=== PATIENT | male | born 1990 | race Caucasian/White ===

== ENCOUNTER 2023-08-02 15:57 | Outpatient (OUT) | payer OTHER, SELFPAY ==
[2023-08-02 16:10] LABS: Basophils Absolute Auto 0.1 10^3/uL (0.0-0.1); Basophils Percent Auto 0.4 % (0.2-2.0); Eosinophils Absolute Auto 0.5 10^3/uL (0.0-0.7); Eosinophils Percent Auto 4.2 % (0.9-7.0); Hematocrit 47.4 % (42.0-54.0); Hemoglobin 15.8 g/dL (14.0-18.0); Immature Granulocytes Abs Auto 0.05 10^3/uL (0.00-0.03); Immature Granulocytes Pct Auto 0.4 % (0.0-0.5); Lymphocytes Absolute Auto 3.3 10^3/uL (1.2-3.8); Lymphocytes Percent Auto 27.6 % (20.5-60.0); Mean Corpuscular HGB Conc 33.3 g/dL (29.9-35.2); Mean Corpuscular Hemoglobin 28.2 pg (25.9-34.0); Mean Corpuscular Volume 84.6 fL (80.0-94.0); Mean Platelet Volume 9.9 fL (9.5-13.5); Monocytes Absolute Auto 0.5 10^3/uL (0.3-0.8); Monocytes Percent Auto 4.3 % (1.7-12.0); Neutrophils Absolute Auto 7.5 10^3/uL (1.4-6.5); Neutrophils Percent Auto 63.1 % (43.0-75.0); Platelet Count 340 10^3/uL (150-450); White Blood Count 11.9 10^3/uL (4.0-11.0)
[2023-08-02 17:02] LABS: Free T4 0.83 ng/dL (0.76-1.46)
[2023-08-02 17:05] LABS: Alanine Aminotransferase 72 U/L (16-63); Alkaline Phosphatase 78 U/L (46-116); Anion Gap 13.8; Aspartate Amino Transferase 26 U/L (15-37); Bilirubin Total 0.3 mg/dL (0.2-1.0); Calcium 8.8 mg/dL (8.5-10.1); Carbon Dioxide 24.3 mmol/L (21.0-32.0); Chloride 104 mmol/L (98-107); Estimated GFR (African America >60 (>=60); Estimated GFR (Non-African Ame >60 (>=60); Glucose 100 mg/dL (74-106); Potassium 4.1 mmol/L (3.5-5.1); Sodium 138 mmol/L (136-145); Thyroid Stimulating Hormone 0.991 uIU/mL (0.358-3.740)
[2023-08-04 04:07] LABS: Lithium (Eskalith(R)), Serum 0.2 mmol/L (0.5-1.2)
== END 2023-08-02 15:58 | disposition home or self-care (01) ==
LOC: LAB 16:00
PROVIDERS: PCP Family Medicine; Visit Provider Family Medicine
DX: R53.83 Other fatigue (principal)
CPT/HCPCS: 36415; 80053; 80178; 84439; 84443; 85025

== ENCOUNTER 2023-11-17 13:44 | Emergency (ER) | payer OTHER, SELFPAY ==
[2023-11-17 14:14] VITALS: BP 130/104; PULSE 62; RESP 22; TEMP 36.8; O2SAT 99; BMI 38.6
== END 2023-11-17 14:45 | disposition left against medical advice (07) ==
PROVIDERS: Emergency Provider Emergency Medicine Emergency Medical Services; PCP Family Medicine
DX: Z53.21 Procedure and treatment not carried out due to patient leaving prior to being seen by health care provider (principal)

== ENCOUNTER 2023-11-24 16:20 | Observation (INO) | payer OTHER, SELFPAY ==
[2023-11-24] VITALS (7 sets, daily range): BP systolic 121–166; BP diastolic 82–104; PULSE 53–82; RESP 16–18; TEMP 36.6–37.1; O2SAT 98–100; BMI 38.0; BMI 38.5
--- NOTE | 2023-11-24 17:00 | ED.GENADUL1 ---
HPI - General Adult General Chief complaint: Abdominal Pain Stated complaint: Abdominal Pain Time Seen by Provider: 11/24/23 16:51 Source: patient Mode of arrival: walk-in Limitations: no limitations History of Present Illness HPI narrative: Patient is a 33-year-old male with a history of cyclic vomiting who presents to the emergency department for the evaluation of suspected cyclic vomiting after smoking marijuana last week. He states he went to Dr. Mario's office to be evaluated and was told to come to the hospital for admission, he states he went to [facility] but was told he did not have admission orders and he needed to go through the ER. He complains of generalized mid abdominal pain associated with multiple episodes of vomiting. He has had minimal diarrhea. No fevers, cough or congestion. He denies urinary symptoms. No previous abdominal surgeries. Related Data Home Medications Medication Instructions Recorded Confirmed clonidine HCl 0.1 mg tablet 0.2 mg PO BID 11/17/23 11/24/23 hydroxyzine pamoate 25 mg capsule 25 mg PO QID PRN anxiety 11/17/23 11/24/23 lithium carbonate 300 mg capsule 300 mg PO BEDTIME 11/17/23 11/24/23 propranolol 80 mg tablet 80 mg PO DAILY 11/17/23 11/24/23 Allergies Allergy/AdvReac Type Severity Reaction Status Date / Time Penicillins Allergy Severe Verified 11/24/23 16:49 Review of Systems ROS Constitutional Denies: fever or chills Ears, nose, mouth, and throat Denies: throat pain or nasal congestion Cardiovascular Denies: chest pain Respiratory Denies: shortness of breath or cough Gastrointestinal Reports: abdominal pain, nausea, vomiting and diarrhea Genitourinary Denies: painful urination Musculoskeletal Denies: back pain Integumentary/Breast Denies: rash Neurological Denies: headache Exam Narrative Exam Narrative: Gen.: Awake, alert, in no distress Head: Normocephalic, atraumatic ENT: Moist mucous membranes Respiratory: No respiratory distress, lungs clear bilaterally Cardio: Regular rate and rhythm Gastrointestinal: Abdomen is soft, nondistended and nontender to palpation Extremities: Moves extremities equally Psych: Normal mood and affect Neuro: No focal neuro deficit Skin: Warm, dry, intact Constitutional Vital Signs, click to edit/add: Last Vital Signs Temp 98.8 F 11/24/23 16:49 Pulse 82 11/24/23 16:49 Resp 18 11/24/23 16:49 BP 121/104 H 11/24/23 16:49 Pulse Ox 100 11/24/23 16:49 O2 Del Method Room Air 11/24/23 16:49 Course Vital Signs Vital signs: Vital Signs Temperature 98.8 F 11/24/23 16:49 Pulse Rate 82 11/24/23 16:49 Respiratory Rate 18 11/24/23 16:49 Blood Pressure 121/104 H 11/24/23 16:49 Pulse Oximetry 100 11/24/23 16:49 Oxygen Delivery Method Room Air 11/24/23 16:49 Temperature 98.8 F 11/24/23 16:49 Pulse Rate 82 11/24/23 16:49 Respiratory Rate 18 11/24/23 16:49 Blood Pressure 121/104 H 11/24/23 16:49 Pulse Oximetry 100 11/24/23 16:49 Oxygen Delivery Method Room Air 11/24/23 16:49 Medical Decision Making MDM Narrative Medical decision making narrative: Before the patient was brought into the emergency department, staff called [facility] and they stated that the patient did not have admission orders and needed to come through the emergency department. IV was established, labs were drawn and I discussed the case with Dr. Mario who stated that he absolutely called [facility] and placed admission orders for the patient to be a direct admission. He requested we admit the patient and he will place admission orders through the ER. Medical Records Medical records reviewed: Yes I reviewed the patient's medical records Lab Data Lab results reviewed: Yes I reviewed the patient's lab results Discharge Plan Discharge Chief Complaint: Abdominal Pain Patient Disposition: Admitted as Observation Time of Disposition Decision: 17:18 Prescriptions / Home Meds: No Action clonidine HCl 0.1 mg tablet 0.2 mg PO BID hydroxyzine pamoate 25 mg capsule 25 mg PO QID PRN (Reason: anxiety) lithium carbonate 300 mg capsule 300 mg PO BEDTIME propranolol 80 mg tablet 80 mg PO DAILY Referrals: Janes Mario MD [Primary Care Provider] - 1 week
--- OUTSIDE RECORDS SUMMARY | 2023-11-24 17:10 | XMS_ITS | CCD ---
Author Name Unknown Address [address] [place] [address] Organization [facility] Care Team Providers Care Speech And Language Assistant Name Role Phone DARREN MOHAMAD Referring Unavailable LESLIEHOTHCARLOS, MOHAMAD Attending Unavailable HOY ., DR OLIVER Consulting Unavailable HOY ., DR OLIVER Attending Unavailable HOY ., DR OLIVER Admitting Unavailable HOY ., DR OLIVER Primary Care Unavailable HAY ., DR PIMENTEL Consulting Unavailable HOY ., DR OLIVER Consulting Unavailable HOY ., DR OLIVER Attending Unavailable HOY ., DR OLIVER Admitting Unavailable HOY ., DR OLIVER Primary Care Unavailable LUISA, DR CHARISSA Buckley Consulting Unavailabl e HOY ., DR OLIVER Consulting Unavailable HOY ., DR OLIVER Attending Unavailable HOY ., DR OLIVER Admnarcisa Unavailable HOY ., DR OLIVER Primary Care Unavailable HAY ., DR PIMENTEL Consulting Unavailable HOY ., DR OLIVER Consulting Unavailable HOY ., DR OLIVER Primary Care Unavailable HOY ., DR OLIVER Attending Unavailable HOY ., DR OLIVER Admnarcisa Unavailable NIX ., DR CASTILLO Banegas Consulting Unavailable ZEESHAN ESPOSITO Consulting Unavailable HOY ., DR OLIVER Consulting Unavailable HOY ., DR OLIVER Primary Care Unavailable HOY ., DR OLIVER Attending Unavailable HOY ., DR OLIVER Admitting Unavailable HAY ., DR PIMENTEL Consulting Unavailable HAY ., DR PIMENTEL Attending Unavailable HAY ., DR PIMENTEL Admitting Unavailable HOY ., DR OLIVER Primary Care Unavailable ODELL OCAMPO Consulting Unavailable CHERYL .DELORES Attending Unavailable CHERYL ., DELORES Admitting Unavailable HOY ., DR OLIVER Primary Care Unavailable CHERYL ., DELORES Consulting Unavailable HAY ., DR PIMENTEL Consulting Unavailable HAY ., DR PIMENTEL Attending Unavailable HAY ., DR PIMENTEL Admitting Unavailable HOY ., DR OLIVER Primary Care Unavailable SHYANN CM Consulting Unavailable ALGHOTHANI, MOHAMAD Consulting Unavailable HOY ., DR OLIVER Primary Care Unavailable DARREN, RAQUEL Attending Unavailable DARREN, RAQUEL Admitting Unavailable HOY ., DR OLIVER Consulting Unavailable HOY ., DR OLIVER Primary Care Unavailable HOY ., DR OLIVER Attending Unavailable HOY ., DR OLIVER Admitting Unavailable HOY ., DR OLIVER Primary Care Unavailable HAIM HUDDLESTON Attending Unavailable HAIM HUDDLESTON Admitting Unavailable HOY ., DR OLIVER Consulting Unavailable HOY ., DR OLIVER Primary Care Unavailable HOY ., DR OLIVER Attending Unavailable HOY ., DR OLIVER Admitting Unavailable [place], DR RAPHAEL Lemon Consulting Unavailable Michaels, K Consulting Unavailable HOY ., DR OLIVER Consulting Unavailable HOY ., DR OLIVER Attending Unavailable HOY ., DR OLIVER Admitting Unavailable HOY ., DR OLIVER Primary Care Unavailable LUISA, DR CHARISSA Buckley Consulting Unavailabl e HAYLEE, DR CASSIA Del Angel Consulting Unavailable DARRELL TOLEDO Consulting Unavailable KAYDEN BRANTLEY Consulting Unavailable Luis Angel Bentley Attending UnavailLuis Angel Conway Admitting UnavailMelody Benitez Primary Care Unavailable Allergies Allergy Classification Reported Allergen(s) Allergy Type Date of Onset Reaction(s) Facility (3 sources) Penicillins; Translations: [PENICILLINS] Propensity to adverse reactions to drug (disorder) 09-28-20 [facility] Repository (1 source) Sulfamethoxazole / Trimethoprim; Translations: [SULFAMETHOXAZOLE-TR IMETHOPRIM] Drug Allergy 01-27-20 [facility] Repository (1 source) Clarithromycin Drug Allergy [facility] Repository (1 source) Sulfamethoxazole / Trimethoprim Drug Allergy 05-27-20 17 [facility] Repository (1 source) Sulfamethoxazole Drug Allergy 03-20-20 [facility] Repository (1 source) Trimethoprim Drug Allergy 03-20-20 [facility] Repository Problems Active Problems Problem Classification Problem Date Documented Date Episodic/Chronic Abdominal pain (7 sources) Generalized abdominal pain; Translations: [Upper abdominal pain, unspecified] Onset: 07-09-2022 Episodic Acute and unspecified renal failure (1 source) Acute kidney failure, unspecified; Translations: [ACUTE KIDNEY FAILURE UNSPECIFIED] Onset: 02-07-2023 Episodic Anxiety disorders (7 sources) Anxiety disorder, unspecified; Translations: [Panic disorder [episodic paroxysmal anxiety]] Onset: 07-07-2022 Chronic Attention-deficit, conduct, and disruptive behavior disorders (1 source) Attention-deficit hyperactivity disorder, unspecified type; Translations: [ADHD UNSPECIFIED TYPE] Onset: 02-07-2023 Chronic Attention-deficit, conduct, and disruptive behavior disorders (1 source) Attention-deficit hyperactivity disorder, predominantly hyperactive type; Translations: [ADHD HYPERACTIVITY TYPE] Onset: 04-05-2022 Chronic Diseases of white blood cells (1 source) Elevated white blood cell count, unspecified; Translations: [ELEVATED WHITE BLOOD CELL COUNT UNS] Onset: 09-08-2022 Chronic Fluid and electrolyte disorders (7 sources) Dehydration; Translations: [Hypo-osmolality and hyponatremia] Onset: 07-06-2022 Episodic Mood disorders (2 sources) Major depressive disorder, single episode, unspecified; Translations: [MISSAEL DEPRESS D/O SINGLE EPIS UNS] Onset: 10-24-2022 Chronic Nausea and vomiting (7 sources) Vomiting, unspecified; Translations: [Nausea with vomiting, unspecified] Onset: 07-07-2022 Episodic Nonspecific chest pain (9 sources) Chest pain, unspecified; Translations: [Other chest pain] Onset: 11-16-2022 Episodic Other aftercare (1 source) Other intermediate (current) drug therapy; Translations: [OTH INSURANCE CLAIMS ADJUSTER CURRENT DRUG THERAPY] Onset: 02-07-2023 Episodic Other lower respiratory disease (1 source) Acute respiratory distress; Translations: [ACUTE RESPIRATORY DISTRESS] Onset: 02-07-2023 Episodic Other nutritional; endocrine; and metabolic disorders (1 source) Morbid (severe) obesity due to excess calories; Translations: [MORBID SEVERE OBES D/T EXCESS LEIDY] Onset: 02-07-2023 Chronic Other nutritional; endocrine; and metabolic disorders (1 source) Body mass index (BMI) 40.0-44.9, adult; Translations: [BODY MASS INDEX BMI 40.0-44.9 ADULT] Onset: 02-07-2023 Chronic Other screening for suspected conditions (not mental disorders or infectious disease) (4 sources) Abnormal result of other cardiovascular function study; Translations: [Other specified abnormal findings of blood chemistry] Onset: 09-08-2022 Episodic Residual codes; unclassified (1 source) Sleep apnea, unspecified; Translations: [SLEEP APNEA UNSPECIFIED] Onset: 02-07-2023 Chronic Residual codes; unclassified (4 sources) Obstructive sleep apnea (adult) (pediatric); Translations: [OBSTRUCTIVE SLEEP APNEA] Onset: 12-29-2022 Chronic Septicemia (except in labor) (2 sources) Sepsis, unspecified organism; Translations: [Severe sepsis without septic shock] Onset: 02-07-2023 Episodic Substance-related disorders (2 sources) Cannabis abuse, uncomplicated; Translations: [Nicotine dependence, cigarettes, uncomplicated] Onset: 07-07-2022 Chronic Unclassified (2 sources) abnormal stress test Onset: 11-24-2022 Unclassified (2 sources) Cyclical vomiting syndrome unrelated to migraine; Translations: [CYCLICL VOMTNG SYN UNRELTD MIGRAINE] Onset: 11-01-2022 Unclassified (4 sources) CONTACT W/AND (SUSP) EXPOS COVID-19; Translations: [CONTACT W/AND (SUSP) EXPOS COVID-19] Onset: 04-29-2022 Past or Other Problems Problem Classification Problem Date Documented Da te Episodic/Chronic Acute bronchitis (1 source) Acute bronchitis, unspecified; Translations: [ACUTE BRONCHITIS UNSPECIFIED] Onset: 04-29-2022 Episodic Cardiac dysrhythmias (1 source) Tachycardia, unspecified; Translations: [TACHYCARDIA UNSPECIFIED] Onset: 04-05-2022 Episodic Deficiency and other anemia (1 source) Iron deficiency anemia, unspecified; Translations: [IRON DEFICIENCY ANEMIA UNSPECIFIED] Onset: 07-07-2022 Episodic Diabetes mellitus without complication (1 source) Prediabetes; Translations: [PREDIABETES] Onset: 09-08-2022 Episodic Fever of unknown origin (1 source) Fever, unspecified; Translations: [FEVER UNSPECIFIED] Onset: 07-07-2022 Episodic Immunizations and screening for infectious disease (1 source) Encounter for immunization; Translations: [ENCOUNTER FOR IMMUNIZATION] Onset: 09-08-2022 Episodic Unclassified (1 source) CONTACT W/AND (SUSP) EXPOS COVID-19; Translations: [CONTACT W/AND (SUSP) EXPOS COVID-19] Onset: 04-23-2022 Results Test Name Value Interpretation Reference Range Facil ity H PYLORI ANTIBODY IGGon 02-1 5-2023 H. PYLORI IGG ABS 0.09 Index Value Normal 0.00-0.79 [facility] Comment on above: Result Comment: Nega tive <0.80 Equivocal 0.80 - 0.89 Positive >0.89 Performed By: #### H PYLLC ####[facility] [address] [place] [address]Dr. Chrissy Frazier AMYLASEon 01-04-2023 Amylase [Catalytic activity/Vol] 34 U/L Normal 25-115 [facility] Comment on above: Performed By: #### A MY ####[facility] [address] [place], [place] [address]Dr. Chrissy Frazier CBC AUTO DIFFon 01-04-2023 BASO # 0.0 103/ul Normal 0.0-0.1 [facility] Comment on above: Performed By: #### C BC ####[facility] [address] [place], [place] [address]Dr. Chrissy Frazier Basophils/100 WBC (Bld) 0.1 % Critically low 0.2-2.0 [facility] Comment on above: Performed By: #### C BC ####[facility] [address] [place], [place] [address]Dr. Chrissy Frazier EO # 0.0 103/ul Normal 0.0-0.7 [facility] Comment on above: Performed By: #### C BC ####[facility] [address] [place], [place] [address]Dr. Chrissy Frazier Eosinophils/100 WBC (Bld) 0.1 % Critically low 0.9-7.0 [facility] Comment on above: Performed By: #### C BC ####[facility] [address] [place], [place] [address]Dr. Chrissy Frazier Erythrocyte distribution width (RBC) [Ratio] 14.0 % Normal 11.0-15.0 [facility] Comment on above: Performed By: #### C BC ####[facility] [address] [place], [place] [address]Dr. Chrissy Frazier Hematocrit (Bld) [Volume fraction] 40.4 % Critically low 42.0-54.0 [facility] Comment on above: Performed By: #### C BC ####[facility] [address] [place] [address]Dr. Chrissy Frazier Hemoglobin (Bld) [Mass/Vol] 13.8 g/dL Critically low 14.0-18.0 [facility] Comment on above: Performed By: #### C BC ####[facility] [address] [place] [address]Dr. Chrissy Frazier IG # 0.05 10e3/ul Critically high 0.00-0.03 [facility] Comment on above: Performed By: #### C BC ####[facility] [address] [place] [address]Dr. Chrissy Frazier IG % 0.3 % Normal 0.0-0.5 [facility] Comment on above: Performed By: #### C BC ####[facility] [address] [place], [place] [address]Dr. hCrissy Frazier LYMPH # 1.7 103/ul Normal 1.2-3.8 [facility] Comment on above: Performed By: #### C BC ####[facility] [address] [place] [address]Dr. Chrissy Frazier Lymphocytes/100 WBC (Bld) 11.9 % Critically low 20.5-60.0 [facility] Comment on above: Performed By: #### C BC ####[facility] [address] [place] [address]Dr. Chrissy Frazier MANUAL DIFF REQ NO Normal [facility] Comment on above: Performed By: #### C BC ####[facility] [address] [place], [place] [address]Dr. Chrissy Frazier MCH (RBC) [Entitic mass] 29.3 pg Normal 25.9-34.0 [facility] Comment on above: Performed By: #### C BC ####[facility] [address]fs[address] [place], [place] [address]Dr. Chrissy Frazier MCHC (RBC) [Mass/Vol] 34.2 g/dL Normal 29.9-35.2 [facility] Comment on above: Performed By: #### C BC ####[facility] [address] [place] [id number]. Chrissy Frazier MCV (RBC) [Entitic vol] 85.8 fL Normal 80.0-94.0 [facility] Comment on above: Performed By: #### C BC ####[facility] [address] [place] [id number]. Chrissy Frazier MONO # 0.6 103/ul Normal 0.3-0.8 [facility] Comment on above: Performed By: #### C BC ####[facility] [address] [place] [id number]. Chrissy Freddie Monocytes/100 WBC (Bld) 4.2 % Normal 1.7-12.0 [facility] Comment on above: Performed By: #### C BC ####[facility] [address] [place], [place] [address]Dr. Chrissy Frazier NEUT # 12.0 103/ul Critically high 1.4-6.5 [facility] Comment on above: Performed By: #### C BC ####[facility] [address] [place], [place] [address]Dr. Chrissy Freddie Neutrophils/100 WBC (Bld) 83.4 % Critically high 43.0-75.0 [facility] Comment on above: Performed By: #### C BC ####[facility] [address] [place], [place] [address]Dr. Chrissy Freddie Platelet mean volume (Bld) [Entitic vol] 10.4 fL Normal 9.5-13.5 [facility] Comment on above: Performed By: #### C BC ####[facility] [address] [place], [place] [address]Dr. Tishrowan Frazier PLT 313 103/ul Normal 150-450 [facility] Comment on above: Performed By: #### C BC ####[facility] [address] [place] [phone]. Chrissy Frazier RBC 4.71 106/ul Normal 4.70-6.10 [facility] Comment on above: Performed By: #### C BC ####[facility] [address] [place] [address]Dr. Chrissy Frazier WBC 14.4 103/ul Critically high 4.0-11.0 [facility] Comment on above: Performed By: #### C BC ####[facility] [address] [place] [phone]. Chrissy Frazier CULTURE URINEon 01-04-2023 CULTURE URINE Culture Observations: NO GROWTH. Normal [facility] Comment on above: Performed By: #### U RCX ####[facility] [address] [place] [address]Dr. Chrissy Frazier DRUG SCREEN RAPID (URINE)on 01-04-2023 AMP Negative Normal NEGATIVE [facility] Comment on above: Performed By: #### D REYES, UAMIC ####[facility] [address] [place], [place] [address]Dr. Chrissy Frazier BAR Negative Normal NEGATIVE [facility] Comment on above: Performed By: #### D REYES, UAMIC ####[facility] [address] [place] [address]Dr. Chrissy Frazier BUP Negative Normal NEGATIVE [facility] Comment on above: Performed By: #### D REYES, UAMIC ####[facility] [address] [place] [address]Dr. Chrissy Frazier BZO Positive Abnormal NEGATIVE [facility] Comment on above: Performed By: #### Amelie CHAMBERS, UAMIC ####[facility] [address] [place] [address]Dr. Chrissy Frazier LAUREN Negative Normal NEGATIVE [facility] Comment on above: Performed By: #### D REYES, UAMIC ####[facility] [address]qs[address] [place], [place] [address]Dr. Chrissy Frazier CUT-OFFS SEE BELOW Normal [facility] Comment on above: Result Comment: AMP (Amphetamine): 500ng/mL, BAR (Barbituates): 200 ng/mL, BZO (Benzodiazepines): 150 ng/mL, BUP (Buprenorphine): 10 ng/mL, LAUREN (Cocaine): 150 ng/mL, mAMP (Methamphetamine): 500 ng/mL, MTD (Methadone): 200 ng/mL, OPI (Opiates): 100 ng/mL, OXY (Oxycodone): 100 ng/mL, PCP (Phencyclidine): 25 ng/mL, PPX (Propoxyphene): 300 ng/mL, THC (Cannabinoids): 50 ng/mL, TCA (Trycyclic Antidepressants): 300 ng/mL Performed By: #### Amelie CHAMBERS, UAMIC ####[facility] [address] [place], [place] [address]Dr. [facility] DRUG CUT HEADER DRUG CLASS TEST SYSTEM CUT-OFF CONCENTRATIONS ARE FOLLOWS: Normal [facility] Comment on above: Performed By: #### Amelie CHAMBERS UAMIC ####[facility] [address] [place], [place] [address]Dr. [facility] mAMP Negative Normal NEGATIVE [facility] Comment on above: Performed By: #### Amelie CHAMBERS UAMIC ####[facility] [address] [place], [place] [address]Dr. [facility] MTD Negative Normal NEGATIVE [facility] Comment on above: Performed By: #### Amelie CHAMBERS, UAMIC ####[facility] [address] [place], [place] [address]Dr. [facility] OPI Negative Normal NEGATIVE [facility] Comment on above: Performed By: #### Amelie CHAMBERS, UAMIC ####[facility] [address] [place], [place] [address]Dr. [facility] OXY Negative Normal NEGATIVE [facility] Comment on above: Performed By: #### Amelie CHAMBERS, UAMIC ####[facility] [address] [place], [place] [address]Dr. [facility] PCP Negative Normal NEGATIVE [facility] Comment on above: Performed By: #### Amelie CHAMBERS, UAMIC ####[facility] [address] [place], [place] [address]Dr. [facility] PPX Negative Normal NEGATIVE [facility] Comment on above: Performed By: #### Amelie CHAMBERS UAMIC ####[facility] [address] [place] [phone]. Chrissy Frazier TCA Positive Abnormal NEGATIVE [facility] Comment on above: Performed By: #### D REYES UAMIC ####[facility] [address] [place] [address]Dr. Chrissy Frazier THC Positive Abnormal NEGATIVE [facility] Comment on above: Performed By: #### D REYES UAMIC ####[facility] [address] [place] [address]Dr. Chrissy Frazier LIPASEon 01-04-2023 Lipase [Catalytic activity/Vol] 57.0 U/L Critically low 73.0-393.0 [facility] Comment on above: Performed By: #### L IPA ####[facility] [address] [place], [place] [address]Dr. Chrissy Frazier PROF 14(COMP METB)on 023 Albumin [Mass/Vol] 3.6 g/dL Normal 3.4-5.0 [facility] Comment on above: Performed By: #### C MP ####[facility] [address] [place] [address]Dr. Chrissy Frazier Albumin/Globulin [Mass ratio] 1.0 {ratio} Normal [facility] Comment on above: Performed By: #### C MP ####[facility] [address] [place] [address]Dr. Chrissy Frazier ALP [Catalytic activity/Vol] 67 U/L Normal 46-116 [facility] Comment on above: Performed By: #### C MP ####[facility] [address] [place] [address]Dr. Chrissy Frazier ALT [Catalytic activity/Vol] 26 U/L Normal 16-63 [facility] Comment on above: Performed By: #### C MP ####[facility] [address] [place] [address]Dr. Chrissy Frazier Anion gap [Moles/Vol] 16.3 mmol/L Normal [facility] Comment on above: Performed By: #### C MP ####[facility] [address] [place] [phone]. Chrissy Frazier AST [Catalytic activity/Vol] 17 U/L Normal 15-37 [facility] Comment on above: Performed By: #### C MP ####[facility] [address] [place] [phone]. Chrissy Frazier Bilirubin [Mass/Vol] 0.4 mg/dL Normal 0.2-1.0 [facility] Comment on above: Performed By: #### C MP ####[facility] [address] [place] [phone]. Chrissy Frazier Calcium [Mass/Vol] 8.7 mg/dL Normal 8.5-10.1 [facility] Comment on above: Performed By: #### C MP ####[facility] [address] [place] [phone]. Chrissy Frazier Chloride [Moles/Vol] 106 mmol/L Normal 98-107 [facility] Comment on above: Performed By: #### C MP ####[facility] [address] [place] [phone]. Chrissy Frazier CO2 [Moles/Vol] 22.6 mmol/L Normal 21.0-32.0 [facility] Comment on above: Performed By: #### C MP ####[facility] [address] [place] [phone]. Chrissy Frazier Creatinine [Mass/Vol] 0.99 mg/dL Normal 0.70-1.30 [facility] Comment on above: Performed By: #### C MP ####[facility] [address] [place] [phone]. Chrissy Frazier EGFR-AF MALIAN >60 Normal >=60 [facility] Comment on above: Performed By: #### C MP ####[facility] [address] [place] [phone]. Chrissy Frazier EGFR-NON AF MALIAN >60 Normal >=60 [facility] Comment on above: Performed By: #### C MP ####[facility] [address] [place], [place] [address]Dr. Chrissy Frazier Globulin (S) [Mass/Vol] 3.6 g/dL Normal [facility] Comment on above: Performed By: #### C MP ####[facility] [address] [place], [place] [address]Dr. Chrissy Frazier Glucose [Mass/Vol] 138 mg/dL Critically high 74-106 [facility] Comment on above: Performed By: #### C MP ####[facility] [address] [place], [place] [address]Dr. Chrissy Frazier Potassium [Moles/Vol] 3.9 mmol/L Normal 3.5-5.1 [facility] Comment on above: Performed By: #### C MP ####[facility] [address] [place], [place] [address]Dr. Chrissy Frazier Protein [Mass/Vol] 7.2 g/dL Normal 6.4-8.2 [facility] Comment on above: Performed By: #### C MP ####[facility] [address] [place], [place] [address]Dr. Chrissy Frazier Sodium [Moles/Vol] 141 mmol/L Normal 136-145 [facility] Comment on above: Performed By: #### C MP ####[facility] [address]us[address] [place], [place] [address]Dr. Chrissy Frazier Urea nitrogen [Mass/Vol] 10.0 mg/dL Normal 7.0-18.0 [facility] Comment on above: Performed By: #### C MP ####[facility] [address] [place], [place] [address]Dr. Chrissy Freddie Urea nitrogen/Creatinine [Mass ratio] 10.1 mg/mg Normal [facility] Comment on above: Performed By: #### C MP ####[facility] [address] [place], [place] [address]Dr. Chrissy Freddie UA RANDOM W/MICROSCOPICon BACTERIA TRACE Abnormal NONE SEEN [facility] Comment on above: Performed By: #### D REYES, UAMIC ####[facility] [address] [place], [place] [address]Dr. Chrissy Frazier Bilirubin Ql (U) Negative Normal NEGATIVE [facility] Comment on above: Performed By: #### Amelie CHAMBERS, UAMIC ####[facility] [address] [place], [place] [address]Dr. Chrissy Frazier CAST NONE SEEN Normal NONE SEEN [facility] Comment on above: Performed By: #### Amelie LARKIND, UAMIC ####[facility] [address] [place], [place] [address]Dr. Chrissy Frazier Clarity (U) CLEAR Normal CLEAR [facility] Comment on above: Performed By: #### Amelie CHAMBERS, UAMIC ####[facility] [address]oi[address] [place], [place] [address]Dr. Chrissy Frazier Color (U) YELLOW Normal YELLOW [facility] Comment on above: Performed By: #### Amelie CHAMBERS, UAMIC ####[facility] [address]fe[address] [place], [place] [address]Dr. Chrissy Frazier Crystals LM Nom (Urine sed) NONE SEEN Normal NONE SEEN [facility] Comment on above: Performed By: #### Amelie CHAMBERS, UAMIC ####[facility] [address]toxmj[address] [place], [place] [address]Dr. Chrissy Frazier Epithelial cells LM Ql (Urine sed) NONE SEEN Normal NONE SEEN /RARE [facility] Comment on above: Performed By: #### Amelie CHAMBERS, UAMIC ####[facility] [address] [place], [place] [address]Dr. Chrissy Frazier Glucose Ql (U) Negative Normal NEGATIVE [facility] Comment on above: Performed By: #### Amelie CHAMBERS, UAMIC ####[facility] [address] [place], [place] [address]Dr. Chrissy Frazier Hemoglobin Ql (U) Negative Normal NEGATIVE [facility] Comment on above: Performed By: #### Amelie CHAMBERS, UAMIC ####[facility] [address] [place], [place] [address]Dr. Chrissy Frazier Ketones Ql (U) 15 mg/dl Abnormal NEGATIVE [facility] Comment on above: Performed By: #### Amelie CHAMBERS UAMIC ####[facility] [address] [place] [address]Dr. Chrissy Freddie LEUKOCYTES Negative Normal NEGATIVE [facility] Comment on above: Performed By: #### Amelie CHAMBERS UAMIC ####[facility] Aceexyfdma[address] [place] [address]Dr. Yirowan Frazier MUCOUS NONE SEEN Normal NONE SEEN [facility] Comment on above: Performed By: #### Amelie CHAMBERS UAMIC ####[facility] Oltvulworb[address] [place] [address]Dr. Tishrowan Frazier Nitrite Ql (U) Negative Normal NEGATIVE [facility] Comment on above: Performed By: #### Amelie CHAMBERS UAMIC ####[facility] Ztfzzeoket[address] [place] [address]Dr. Chrissy Frazier pH (U) 6.5 [pH] Normal 5-9 [facility] Comment on above: Performed By: #### Amelie CHAMBERS UAMIC ####[facility] Xiuktuszrh[address] [place], [place] [address]Dr. Chrissy Frazier RBC NONE SEEN Abnormal 0-2 [facility] Comment on above: Performed By: #### Amelie CHAMBERS UAMIC ####[facility] Txckryradg[address] [place], [place] [address]Dr. Tishrowan Frazier SPEC GRAVITY 1.020 Normal 1.005-<=1.025 [facility] Comment on above: Performed By: #### Amelie CHAMBERS UAMIC ####[facility] Fmddptlpbl[address] [place] [address]Dr. Tishrowan Frazier UA PROTEIN Negative Normal NEGATIVE/ TRACE [facility] Comment on above: Performed By: #### Amelie CHAMBERS UAMIC ####[facility] Omkwamsyko[address] [place] [address]Dr. Tishrowan Frazier Urobilinogen Qn (U) 0.2 {Estrellita'U}/dL Normal 0.2 - 1. 0 [facility] Comment on above: Performed By: #### Amelie CHAMBERS UAMIC ####[facility] Kubdhvjzdn[address] [place] [address]Dr. Chrissy Frazier WBC NONE SEEN Normal NONE SEEN [facility] Comment on above: Performed By: #### D RUGRPD, UAMIC ####[facility] Yplnuproqp[address] [place] [address]Dr. Chrissy Frazier AMMONIAon 01-03-2023 Ammonia (P) [Moles/Vol] 17 umol/L Normal 11-32 [facility] Comment on above: Performed By: #### A MM ####[facility] Xeejcvswvk[address] [place], [place] [address]Dr. Chrissy Frazier AMYLASEon 01-03-2023 Amylase [Catalytic activity/Vol] 38 U/L Normal 25-115 [facility] Comment on above: Performed By: #### L IPA, TERRENCE, CMP, MG ####[facility] Uyrpfnloii[address] [place] [address]Dr. Chrissy Frazier CBC AUTO DIFFon 01-03-2023 BASO # 0.1 103/ul Normal 0.0-0.1 [facility] Comment on above: Performed By: #### C BC ####[facility] Qdegifmyac6326 [place] [address]Dr. Chrissy Frazier Basophils/100 WBC (Bld) 0.4 % Normal 0.2-2.0 [facility] Comment on above: Performed By: #### C BC ####[facility] Hqloukffoa[address] [place], [place] [address]Dr. Chrissy Frazier EO # 0.1 103/ul Normal 0.0-0.7 [facility] Comment on above: Performed By: #### C BC ####[facility] Ejcskaqybk[address] [place], [place] [address]Dr. Chrissy Frazier Eosinophils/100 WBC (Bld) 0.3 % Critically low 0.9-7.0 [facility] Comment on above: Performed By: #### C BC ####[facility] Tzoijlsemp[address] [place] [address]Dr. Chrissy Frazier Erythrocyte distribution width (RBC) [Ratio] 13.7 % Normal 11.0-15.0 [facility] Comment on above: Performed By: #### C BC ####[facility] Kmsxcywqht45[address] [place] [address]Dr. Chrissy Frazier Hematocrit (Bld) [Volume fraction] 46.1 % Normal 42.0-54.0 [facility] Comment on above: Performed By: #### C BC ####[facility] Lueiolepce[address] [place] [address]Dr. Chrissy Frazier Hemoglobin (Bld) [Mass/Vol] 15.4 g/dL Normal 14.0-18.0 [facility] Comment on above: Performed By: #### C BC ####[facility] Ejnhdatzgi[address] [place], [place] [address]Dr. Chrissy Frazier IG # 0.11 10e3/ul Critically high 0.00-0.03 [facility] Comment on above: Performed By: #### C BC ####[facility] Seksghofol[address] [place], [place] [address]Dr. Chrissy Frazier IG % 0.6 % Critically high 0.0-0.5 [facility] Comment on above: Performed By: #### C BC ####[facility] Omogifqooi[address] [place], [place] [address]Dr. Chrissy Freddie LYMPH # 2.5 103/ul Normal 1.2-3.8 [facility] Comment on above: Performed By: #### C BC ####[facility] Lbkthwqmyj8[address] [place], [place] [address]Dr. Tishrowan Frazier Lymphocytes/100 WBC (Bld) 13.9 % Critically low 20.5-60.0 [facility] Comment on above: Performed By: #### C BC ####[facility] Bxccgpwhgo[address] [place], [place] [address]DrNancy Tishrowan Frazier MANUAL DIFF REQ NO Normal [facility] Comment on above: Performed By: #### C BC ####[facility] Ibqaptafas[address] [place], [place] [address]Dr. Tishrowan Frazier MCH (RBC) [Entitic mass] 28.6 pg Normal 25.9-34.0 [facility] Comment on above: Performed By: #### C BC ####[facility] Rfbwnkwcnx7[address] [place] [id number]. Chrissy Freddie MCHC (RBC) [Mass/Vol] 33.4 g/dL Normal 29.9-35.2 [facility] Comment on above: Performed By: #### C BC ####[facility] Ywkeywfwru7[address] [place] [id number] Frazier MCV (RBC) [Entitic vol] 85.7 fL Normal 80.0-94.0 [facility] Comment on above: Performed By: #### C BC ####[facility] Rhthoqspom[address] [place], [place] [address]Dr. Chrissy Frazier MONO # 0.7 103/ul Normal 0.3-0.8 [facility] Comment on above: Performed By: #### C BC ####[facility] Rkocavnxej7[address] [place], [place] [address]Dr. Chrissy Frazier Monocytes/100 WBC (Bld) 4.0 % Normal 1.7-12.0 [facility] Comment on above: Performed By: #### C BC ####[facility] Rqyiyuasum[address] [place], [place] [address]DrNancy Frazier NEUT # 14.3 103/ul Critically high 1.4-6.5 [facility] Comment on above: Performed By: #### C BC ####[facility] Qibsbqzocm[address] [place], [place] [address]DrNancy Frazier Neutrophils/100 WBC (Bld) 80.8 % Critically high 43.0-75.0 [facility] Comment on above: Performed By: #### C BC ####[facility] Peijvpoqfw[address] [place], [place] [address]DrNancy Frazier Platelet mean volume (Bld) [Entitic vol] 10.4 fL Normal 9.5-13.5 [facility] Comment on above: Performed By: #### C BC ####[facility] Dqcilbysla[address] [place], [place] [address]DrNancy Frazier PLT 437 103/ul Normal 150-450 [facility] Comment on above: Performed By: #### C BC ####[facility] Kzxtqxmgwi89[address] [place] [address]Dr. Chrissy Frazier RBC 5.38 106/ul Normal 4.70-6.10 [facility] Comment on above: Performed By: #### C BC ####[facility] Beyzmzkmod12[address] [place] [address]Dr. Chrissy Frazier WBC 17.7 103/ul Critically high 4.0-11.0 [facility] Comment on above: Performed By: #### C BC ####[facility] Yxzhmejwec80[address] [place] [address]Dr. Chrissy Frazier CULTURE BLOODon 01-03-2023 Microscopic examination of blood, culture Culture Observations: NO GROWTH AT 5 DAYS. Normal [facility] Comment on above: Performed By: #### B LDCX1 ####[facility] Qtwzapvgep[address] [place], [place] [address]Dr. Chrissy Frazier Performed By: #### B LDCX2 ####[facility] Kbitizdovn[address] [place], [place] [address]Dr. Chrissy Frazier ECHOCARDIO M/2D COMPLETEon 0 01-03-2023 ECHOCARDIO M/2D COMPLETE Normal [facility] LACTATE/LACTIC ACIDon 2022 Lactate [Moles/Vol] 2.7 mmol/L Critically high 0.4-1.9 [facility] Comment on above: Performed By: #### L ACT ####[facility] Ffdizioidg6[address] [place], [place] [address]Dr. Chrissy Frazier Lactate [Moles/Vol] 6.3 mmol/L Critically high 0.4-1.9 [facility] Comment on above: Performed By: #### L ACT ####[facility] Dscbimczal[address] [place], [place] [address]Dr. Chrissy Frazier LIPASEon 01-03-2023 Lipase [Catalytic activity/Vol] 74.0 U/L Normal 73.0-393.0 [facility] Comment on above: Performed By: #### L IPA, TERRENCE, CMP, MG ####[facility] Z[address]agkqxma[address] [place] [address]Dr. Chrissy Frazier MAGNESIUMon 01-03-2023 Magnesium [Mass/Vol] 1.6 mg/dL Critically low 1.8-2.4 [facility] Comment on above: Performed By: #### L IPA, TERRENCE, CMP, MG ####[facility] Hxvzesaqtx3686 [place] [address]Dr. Chrissy Frazier PROF 14(COMP METB)on 023 Albumin [Mass/Vol] 4.3 g/dL Normal 3.4-5.0 [facility] Comment on above: Performed By: #### L IPA, TERRENCE, CMP, MG ####[facility] Bwlbyxsbuf[address] [place] [address]Dr. Chrissy Frazier Albumin/Globulin [Mass ratio] 1.1 {ratio} Normal [facility] Comment on above: Performed By: #### L IPA, TERRENCE, CMP, MG ####[facility] Idcmbjhcsf97[address] [place] [address]Dr. Chrissy Frazier ALP [Catalytic activity/Vol] 87 U/L Normal 46-116 [facility] Comment on above: Performed By: #### L IPA, TERRENCE, CMP, MG ####[facility] Wweymaevhg[address] [place], [place] [address]Dr. Chrissy Frazier ALT [Catalytic activity/Vol] 32 U/L Normal 16-63 [facility] Comment on above: Performed By: #### L IPA, TERRENCE, CMP, MG ####[facility] Demkvopumn9555 [place] [address]Dr. Chrissy Frazier Anion gap [Moles/Vol] 24.0 mmol/L Normal [facility] Comment on above: Performed By: #### L IPA, TERRENCE, CMP, MG ####[facility] Mkusnuyfth7[address] [place] [address]Dr. Chrissy Frazier AST [Catalytic activity/Vol] 22 U/L Normal 15-37 [facility] Comment on above: Performed By: #### L IPA, TERRENCE, CMP, MG ####[facility] Fplmbgwkxc27[address] [place] [address]Dr. Chrissy Frazier Bilirubin [Mass/Vol] 0.6 mg/dL Normal 0.2-1.0 [facility] Comment on above: Performed By: #### L IPA, TERRENCE, CMP, MG ####[facility] Jzchrgfuyp[address] [place] [address]Dr. Chrissy Frazier Calcium [Mass/Vol] 9.6 mg/dL Normal 8.5-10.1 [facility] Comment on above: Performed By: #### L IPA, TERRENCE, CMP, MG ####[facility] Rcuqtugjta17[address] [place] [address]Dr. Chrissy Frazier Chloride [Moles/Vol] 103 mmol/L Normal 98-107 [facility] Comment on above: Performed By: #### L IPA, TERRENCE, CMP, MG ####[facility] Bfpwviyfnu3854 [place] [address]Dr. Chrissy Frazier CO2 [Moles/Vol] 16.7 mmol/L Critically low 21.0-32.0 [facility] Comment on above: Performed By: #### L IPA, TERRENCE, CMP, MG ####[facility] Bkebdfknwz[address] [place] [address]Dr. hCrissy Frazier Creatinine [Mass/Vol] 1.42 mg/dL Critically high 0.70-1.30 [facility] Comment on above: Performed By: #### L IPA, TERRENCE, CMP, MG ####[facility] Tipuzbgofp[address] [place] [address]Dr. Chrissy Frazier EGFR-AF MALIAN >60 Normal >=60 [facility] Comment on above: Performed By: #### L IPA, TERRENCE, CMP, MG ####[facility] Hawccisrvd18[address] [place] [address]Dr. Chrissy Frazier EGFR-NON AF MALIAN 58 mL/min/1.73m2 Critically low >=60 [facility] Comment on above: Performed By: #### L IPA, TERRENCE, CMP, MG ####[facility] Vbvxyhtlwj9225 [place] [address]Dr. Chrissy Frazier Globulin (S) [Mass/Vol] 4.0 g/dL Normal [facility] Comment on above: Performed By: #### L IPA, TERRENCE, CMP, MG ####[facility] Scsmhgkhsw1269 [place] [address]Dr. Chrissy Frazier Glucose [Mass/Vol] 149 mg/dL Critically high 74-106 [facility] Comment on above: Performed By: #### L IPA, TERRENCE, CMP, MG ####[facility] Icgstowlmp8056 [place] [address]Dr. Chrissy Frazier Potassium [Moles/Vol] 3.7 mmol/L Normal 3.5-5.1 [facility] Comment on above: Performed By: #### L IPA, TERRENCE, CMP, MG ####[facility] Jhsukikcef[address] [place] [address]Dr. Chrissy Frazier Protein [Mass/Vol] 8.3 g/dL Critically high 6.4-8.2 [facility] Comment on above: Performed By: #### L IPA, TERRENCE, CMP, MG ####[facility] Czcatmbyhl[address] [place] [address]Dr. Chrissy Frazier Sodium [Moles/Vol] 140 mmol/L Normal 136-145 [facility] Comment on above: Performed By: #### L IPA, TERRENCE, CMP, MG ####[facility] Hzheilzksf3904 [place] [address]Dr. Chrissy Frazier Urea nitrogen [Mass/Vol] 16.0 mg/dL Normal 7.0-18.0 [facility] Comment on above: Performed By: #### L IPA, TERRENCE, CMP, MG ####[facility] Ckwqvzshne[address] [place] [address]Dr. Chrissy Frazier Urea nitrogen/Creatinine [Mass ratio] 11.3 mg/mg Normal [facility] Comment on above: Performed By: #### L IPA, TERRENCE, CMP, MG ####[facility] Dtmocbgohz0935 [place] [address]Dr. Chrissy Frazier SED RATE [facility] 2022 SED RATE 37 mm/hr Critically high <=15 [facility] Comment on above: Performed By: #### S EDR ####[facility] Ctembegiij9423 [place], [place] [address]Ul. Chrissy Frazier XR ABD FLAT UP_PA Enoch 01-03 XR ABD FLAT UP_PA CH Normal [facility] CT HEART CORONARY ANGIOGRAMo n 12-13-2022 CT HEART CORONARY ANGIOGRAM CT HEART CORONARY ANGIOGRAM 12/13/2022 1:42 PM CLINICAL INDICATIONS: Patient had abnormal stress test. TECHNOLOGIST COMMENTS: Abnormal stress test. QUESTION FOR RADIOLOGIST: Evaluate possibility of coronary artery stenosis. PROTOCOL: Prospective gated cardiac CT CONTRAST: 100 mL Omnipaque 350 TECHNIQUE: Multidetector CT angiogram was obtained using prospective ECG gating. Imaging was performed from the level of the clavicles to the level of the hemidiaphragms. In order to provide better evaluation of the anatomy and disease process, advanced off-line 3-D post-processing techniques, including curvilinear analysis of the coronary arteries were performed. Medication administered in preparation for the examination is located in nursing documentation. All CT scans at this facility use dose modulation, iterative reconstruction, and/or weight based dosing when appropriate to reduce radiation dose to as low as reasonably achievable COMPARISON: None. CORONARY ARTERY ANGIOGRAM FINDINGS: Stenoses are reported as maximum percentage diameter stenosis. Stenosis grading is reported using the following scheme: Normal: no stenosis Mild: 1-49% stenosis Moderate: 50-70% stenosis Severe: >70% stenosis Occluded Dominance of the coronary artery system: co-dominant with normal origins and course. Left Main: The left main is a normal caliber vessel which gives rise to the LAD and circumflex arteries ramus intermedius is also visualized. The left main with no significant plaque. No significant stenosis Left Anterior Descending Artery: The proximal left anterior descending artery and first diagonal branch with no significant plaque. The mid-distal LAD, D2 and D3 branches with no significant plaque. 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 No significant stenosis is appreciated The ramus intermedius branch with no significant plaque. Left Circumflex Artery: The left circumflex artery and its obtuse marginal branches with no significant plaque. No significant stenosis. The vessel terminates as the obtuse marginal branch Right Coronary Artery: The right coronary artery and acute marginal branches with no significant plaque. Moderate size acute marginal branch is visualized without abnormality. However, there is small calcified and noncalcified plaque at the proximal RCA with mild stenosis. The vessel terminates as the posterolateral branch and both RCA and distal LAD are supplying the inferior heart Cardiac Morphology: The right atrium is normal. The right ventricle is normal. The left atrium is normal. The left ventricle is normal. The pericardium is normal and there is no pericardial effusion. Cardiac Devices and Indwelling Central Venous Lines: No central lines or pacemakers are seen. EXTRACARDIAC FINDINGS: Other lung findings: Visualized parts of the lungs appeared grossly unremarkable. 5 mm calcified granuloma in the left lower lobe posterior segment near the diaphragm. Airway: Normal. Pleura: No pleural effusion, thickening, or pneumothorax. Thoracic aorta and great vessels: Normal in diameter. Pulmonary arteries: Normal. Heart and pericardium: Normal. Lymph nodes: No enlarged thoracic lymph nodes. Thoracic spine: Normal. Chest wall: Normal. Visualized upper abdomen: Normal. IMPRESSION: 1. Codominant RCA and LAD. Mild stenosis in the proximal RCA. 2. Small calcified granuloma in the left lower lobe posterior segment 3. Otherwise, unremarkable Gated cardiac CT examination Electronically signed: Maikel Chappell. Normal [facility] Office Visiton 11-24-2022 Follow-up visit [id number] Terence Montero 1990 M Date Provider Department Center 11/24/2022 3848-RAQUEL BANKS [facility] Family History Problem Relation Age of Onset Coronary artery disease Father Heart attack Father 54 Family Status - Relation Status Age at Father Level of Service:43927 [place] OFFICE/OUTPATIENT NEW MODERATE MDM 45-59 MINUTES Reason for Visit and Comments: abnormal stress test [Other] Normal [facility] CARDIAC STRESS TESTon 2021 CARDIAC STRESS TEST Normal [facility] AMYLASEon 10-24-2022 Amylase [Catalytic activity/Vol] 26 U/L Normal 25-115 [facility] Comment on above: Performed By: #### C MP, LIPA, TERRENCE ####[facility] Mynxvyobps80[address] [place], [place] [address]CpNancy Chrissy Frazier CBC AUTO DIFFon 10-24-2022 BASO # 0.0 103/ul Normal 0.0-0.1 [facility] Comment on above: Performed By: #### C BC ####[facility] Nocsjrowff45[address] [place] [id number]. Chrissy Frazier Basophils/100 WBC (Bld) 0.2 % Normal 0.2-2.0 [facility] Comment on above: Performed By: #### C BC ####[facility] Rkropojvop1263 [place] [phone]. Chrissy Frazier EO # 0.1 103/ul Normal 0.0-0.7 [facility] Comment on above: Performed By: #### C BC ####[facility] [address]tzofcpvku[address] [place], [place] [address]Dr. Chrissy Frazier Eosinophils/100 WBC (Bld) 0.4 % Critically low 0.9-7.0 [facility] Comment on above: Performed By: #### C BC ####[facility] Tvfjtelirk[address] [place], [place] [address]Dr. Chrissy Frazier Erythrocyte distribution width (RBC) [Ratio] 14.6 % Normal 11.0-15.0 [facility] Comment on above: Performed By: #### C BC ####[facility] Ullekirgwq[address] [place], [place] [address]Dr. Chrissy Frazier Hematocrit (Bld) [Volume fraction] 39.4 % Critically low 42.0-54.0 [facility] Comment on above: Performed By: #### C BC ####[facility] [address]ztnelxmjx[address] [place], [place] [address]Dr. Chrissy Frazier Hemoglobin (Bld) [Mass/Vol] 13.2 g/dL Critically low 14.0-18.0 [facility] Comment on above: Performed By: #### C BC ####[facility] Ngwwqxzekd1167 [place] [phone]. Chrissy Frazier IG # 0.07 10e3/ul Critically high 0.00-0.03 [facility] Comment on above: Performed By: #### C BC ####[facility] Ebeeodjgck[address] [place], [place] [address]Dr. Chrissy Frazier IG % 0.5 % Normal 0.0-0.5 [facility] Comment on above: Performed By: #### C BC ####[facility] Voxdapczou7490 [place] [phone]. Chrissy Frazier LYMPH # 3.7 103/ul Normal 1.2-3.8 [facility] Comment on above: Performed By: #### C BC ####[facility] Rvjurqhzga1534 [place], [place] [address]Ry. Chrissy Frazier Lymphocytes/100 WBC (Bld) 27.0 % Normal 20.5-60.0 [facility] Comment on above: Performed By: #### C BC ####[facility] Zurfhrypqy0589 [place] [phone]. Chrissy Freddie MANUAL DIFF REQ NO Normal [facility] Comment on above: Performed By: #### C BC ####[facility] Metedrjghp7848 [place] [phone]. Chrissy Freddie MCH (RBC) [Entitic mass] 27.8 pg Normal 25.9-34.0 [facility] Comment on above: Performed By: #### C BC ####[facility] Zjfiyehacn3859 [place] [phone]. Chrissy Frazier MCHC (RBC) [Mass/Vol] 33.5 g/dL Normal 29.9-35.2 [facility] Comment on above: Performed By: #### C BC ####[facility] Uvjgwlqnrf4494 [place] [phone]. Chrissy Freddie MCV (RBC) [Entitic vol] 82.9 fL Normal 80.0-94.0 [facility] Comment on above: Performed By: #### C BC ####[facility] Ljetaawnvz2560 [place] [phone]. Chrissy Freddie MONO # 1.2 103/ul Critically high 0.3-0.8 [facility] Comment on above: Performed By: #### C BC ####[facility] Dxjbildttu1425 [place] [phone]. Chrissy Freddie Monocytes/100 WBC (Bld) 8.4 % Normal 1.7-12.0 [facility] Comment on above: Performed By: #### C BC ####[facility] Ccmjthigoa2973 [place] [phone]. Chrissy Frazier NEUT # 8.8 103/ul Critically high 1.4-6.5 [facility] Comment on above: Performed By: #### C BC ####[facility] Xpjmdtjofc2227 [place] [phone]. Chrissy Frazier Neutrophils/100 WBC (Bld) 63.5 % Normal 43.0-75.0 [facility] Comment on above: Performed By: #### C BC ####[facility] Avwiskwcej6992 [place] [phone]. Chrissy Frazier Platelet mean volume (Bld) [Entitic vol] 10.7 fL Normal 9.5-13.5 [facility] Comment on above: Performed By: #### C BC ####[facility] Jrrmrkyqar2330 [place] [phone]. Chrissy Frazier PLT 291 103/ul Normal 150-450 [facility] Comment on above: Performed By: #### C BC ####[facility] Mhmmzcypyv2017 [place] [phone]. Chrissy Frazier RBC 4.75 106/ul Normal 4.70-6.10 [facility] Comment on above: Performed By: #### C BC ####[facility] Ylqrpogduf0016 [place] [phone]. Chrissy Frazier WBC 13.8 103/ul Critically high 4.0-11.0 [facility] Comment on above: Performed By: #### C BC ####[facility] Hzwlfpowma2219 [place] [phone]. Chrissy Freddie LIPASEon 10-24-2022 Lipase [Catalytic activity/Vol] 44.0 U/L Critically low 73.0-393.0 [facility] Comment on above: Performed By: #### C MP, LIPA, TERRENCE ####[facility] Pwhykcchao9398 [place] [phone]. Chrissy Frazier PROF 14(COMP METB)on 022 Albumin [Mass/Vol] 3.4 g/dL Normal 3.4-5.0 [facility] Comment on above: Performed By: #### C MP, LIPA, TERRENCE ####[facility] Mjeoooknhh6240 [place] [address]Dr. Tishrowan Freddie Albumin/Globulin [Mass ratio] 0.9 {ratio} Normal [facility] Comment on above: Performed By: #### C MP, LIPA, TERRENCE ####[facility] Oydhkoxawt2240 [place] [address]Dr. Chrissy Freddie ALP [Catalytic activity/Vol] 67 U/L Normal 46-116 [facility] Comment on above: Performed By: #### C MP, LIPA, TERRENCE ####[facility] [address]jxfyljc[address] [place], [place] [address]Dr. Chrissy Frazier ALT [Catalytic activity/Vol] 25 U/L Normal 16-63 [facility] Comment on above: Performed By: #### C MP, LIPA, TERRENCE ####[facility] [address]ssepqirwf[address] [place], [place] [address]Dr. Tishrowan Freddie Anion gap [Moles/Vol] 14.5 mmol/L Normal [facility] Comment on above: Performed By: #### C MP LIPA, TERRENCE ####[facility] [address]smraeuucp[address] [place], [place] [address]Dr. Chrissy Freddie AST [Catalytic activity/Vol] 17 U/L Normal 15-37 [facility] Comment on above: Performed By: #### C MP, LIPA, TERRENCE ####[facility] Tzpbxtlhad[address] [place], [place] [address]Dr. Chrissy Frazier Bilirubin [Mass/Vol] 0.5 mg/dL Normal 0.2-1.0 [facility] Comment on above: Performed By: #### C MP, LIPA, TERRENCE ####[facility] [address]zbldunsps[address] [place], [place] [address]Dr. Chrissy Frazier Calcium [Mass/Vol] 8.6 mg/dL Normal 8.5-10.1 [facility] Comment on above: Performed By: #### C MP, LIPA, TERRENCE ####[facility] [address]les[address] [place], [place] [id number]. Chrissy Frazier Chloride [Moles/Vol] 106 mmol/L Normal 98-107 [facility] Comment on above: Performed By: #### C OSWALD ADAIR AMY ####[facility] Vsrupshzlk[address] [place] [address]Dr. Chrissy Frazier CO2 [Moles/Vol] 22.8 mmol/L Normal 21.0-32.0 [facility] Comment on above: Performed By: #### C OSWALD ADAIR, TERRENCE ####[facility] Ywmysrwvcx[address] [place], [place] [address]Dr. Chrissy Frazier Creatinine [Mass/Vol] 0.98 mg/dL Normal 0.70-1.30 [facility] Comment on above: Performed By: #### C OSWALD ADAIR AMY ####[facility] Ybchvfkici[address] [place], [place] [address]Dr. Chrissy Frazier EGFR-AF MALIAN >60 Normal >=60 [facility] Comment on above: Performed By: #### C OSWALD ADAIR TERRENCE ####[facility] Juxnxrblae[address] [place], [place] [address]Dr. Chrissy Frazier EGFR-NON AF MALIAN >60 Normal >=60 [facility] Comment on above: Performed By: #### C OSWALD ADAIR TERRENCE ####[facility] Vhshbopplt[address] [place] [address]Dr. Chrissy Frazier Globulin (S) [Mass/Vol] 3.7 g/dL Normal [facility] Comment on above: Performed By: #### C OSWALD ADAIR TERRENCE ####[facility] Drckppislw69[address] [place] [address]Dr. Chrissy Frazier Glucose [Mass/Vol] 115 mg/dL Critically high 74-106 [facility] Comment on above: Performed By: #### C OSWALD ADAIR, TERRENCE ####[facility] Jnjemnrgck[address] [place], [place] [address]Dr. Chrissy Frazier Potassium [Moles/Vol] 3.3 mmol/L Critically low 3.5-5.1 [facility] Comment on above: Performed By: #### C TESSA ADAIRA, TERRENCE ####[facility] Pimnauvbsa[address] [place] [address]Dr. Chrissy Frazier Protein [Mass/Vol] 7.1 g/dL Normal 6.4-8.2 [facility] Comment on above: Performed By: #### C MP, LIPA, TERRENCE ####[facility] Jlmphsjshp[address] [place], [place] [address]Dr. Chrissy Frazier Sodium [Moles/Vol] 140 mmol/L Normal 136-145 [facility] Comment on above: Performed By: #### C MP, LIPA, TERRENCE ####[facility] Onkkaepdud59[address] [place], [place] [address]Dr. Chrissy Frazier Urea nitrogen [Mass/Vol] 10.0 mg/dL Normal 7.0-18.0 [facility] Comment on above: Performed By: #### C MP, LIPA, TERRENCE ####[facility] Alfhznfajw14[address] [place], [place] [address]Dr. Chrissy Frazier Urea nitrogen/Creatinine [Mass ratio] 10.2 mg/mg Normal [facility] Comment on above: Performed By: #### C MP, LIPA, TERRENCE ####[facility] Dzcyxqcktp[address] [place], [place] [address]Dr. Chrissy Frazier AMYLASEon 10-23-2022 Amylase [Catalytic activity/Vol] 31 U/L Normal 25-115 [facility] Comment on above: Performed By: #### C MP, LIPA, TERRENCE ####[facility] Glnysfftoq[address] [place], [place] [address]Dr. Chrissy Frazier CBC AUTO DIFFon 10-23-2022 BASO # 0.1 103/ul Normal 0.0-0.1 [facility] Comment on above: Performed By: #### C BC ####[facility] Fpsntxfqvt[address] [place], [place] [address]Dr. Chrissy Frazier Basophils/100 WBC (Bld) 0.3 % Normal 0.2-2.0 [facility] Comment on above: Performed By: #### C BC ####[facility] Dvlafspieq[address] [place], [place] [address]Dr. Chrissy Frazier EO # 0.1 103/ul Normal 0.0-0.7 [facility] Comment on above: Performed By: #### C BC ####[facility] Daofiqsxdr0989 [place] [address]Dr. Chrissy Frazier Eosinophils/100 WBC (Bld) 0.3 % Critically low 0.9-7.0 [facility] Comment on above: Performed By: #### C BC ####[facility] Testcrzcnb5157 [place] [address]Dr. Chrissy Frazier Erythrocyte distribution width (RBC) [Ratio] 14.5 % Normal 11.0-15.0 [facility] Comment on above: Performed By: #### C BC ####[facility] Iqdegycokd3174 [place] [address]Dr. Chrissy Frazier Hematocrit (Bld) [Volume fraction] 44.0 % Normal 42.0-54.0 [facility] Comment on above: Performed By: #### C BC ####[facility] Ncihgqasaq7746 [place] [address]Dr. Chrissy Frazier Hemoglobin (Bld) [Mass/Vol] 14.8 g/dL Normal 14.0-18.0 [facility] Comment on above: Performed By: #### C BC ####[facility] Qpvihjpevf6163 [place] [address]Dr. Chrissy Frazier IG # 0.09 10e3/ul Critically high 0.00-0.03 [facility] Comment on above: Performed By: #### C BC ####[facility] Rgejkuwqof0051 [place] [address]Dr. Chrissy Frazier IG % 0.5 % Normal 0.0-0.5 [facility] Comment on above: Performed By: #### C BC ####[facility] Gxfhvcoekf1104 [place] [address]Dr. Chrissy Frazier LYMPH # 3.6 103/ul Normal 1.2-3.8 [facility] Comment on above: Performed By: #### C BC ####[facility] Bbwcsaigmm8023 [place] [address]Dr. Tishrowan Frazier Lymphocytes/100 WBC (Bld) 19.4 % Critically low 20.5-60.0 [facility] Comment on above: Performed By: #### C BC ####[facility] Zhegrcykea32[address] [place] [address]Dr. Tishrowan Frazier MANUAL DIFF REQ NO Normal [facility] Comment on above: Performed By: #### C BC ####[facility] Xhqxochzfw3074 [place] [address]Dr. Chrissy Freddie MCH (RBC) [Entitic mass] 28.1 pg Normal 25.9-34.0 [facility] Comment on above: Performed By: #### C BC ####[facility] Gbbqhdodat1466[address] [place], [place] [address]Dr. Chrissy Frazier MCHC (RBC) [Mass/Vol] 33.6 g/dL Normal 29.9-35.2 [facility] Comment on above: Performed By: #### C BC ####[facility] Ofamwmkygj6135[address] [place], [place] [address]Dr. Chrissy Frazier MCV (RBC) [Entitic vol] 83.5 fL Normal 80.0-94.0 [facility] Comment on above: Performed By: #### C BC ####[facility] Ykbuhhcwuy96[address] [place], [place] [address]Dr. Chrissy Frazier MONO # 0.9 103/ul Critically high 0.3-0.8 [facility] Comment on above: Performed By: #### C BC ####[facility] Tvnytspjir88[address] [place], [place] [address]Dr. Chrissy Frazier Monocytes/100 WBC (Bld) 4.9 % Normal 1.7-12.0 [facility] Comment on above: Performed By: #### C BC ####[facility] Klyhcpqovq[address] [place], [place] [address]Dr. Chrissy Frazier NEUT # 13.9 103/ul Critically high 1.4-6.5 [facility] Comment on above: Performed By: #### C BC ####[facility] Vtdinwgqpy0448 [place] [id number]. Chrissy Frazier Neutrophils/100 WBC (Bld) 74.6 % Normal 43.0-75.0 [facility] Comment on above: Performed By: #### C BC ####[facility] Uqdmomrqos6921 [place] [phone]. Chrissy Frazier Platelet mean volume (Bld) [Entitic vol] 10.5 fL Normal 9.5-13.5 [facility] Comment on above: Performed By: #### C BC ####[facility] Cozfvldxli7807 [place] [phone]. Chrissy Frazier PLT 402 103/ul Normal 150-450 [facility] Comment on above: Performed By: #### C BC ####[facility] Uypthbmgkv1569[address] [place], [place] [address]Dr. Chrissy Frazier RBC 5.27 106/ul Normal 4.70-6.10 [facility] Comment on above: Performed By: #### C BC ####[facility] Fkcsgzxenm[address] [place], [place] [address]Dr. Chrissy Frazier WBC 18.6 103/ul Critically high 4.0-11.0 [facility] Comment on above: Performed By: #### C BC ####[facility] Rawtpjsxye4[address] [place], [place] [id number]. Chrissy Frazier CULTURE BLOODon 10-23-2022 Microscopic examination of blood, culture Culture Observations: NO GROWTH AT 5 DAYS. Normal [facility] Comment on above: Performed By: #### B LDCX2 ####[facility] Hmmwdnhspi1208 [place] [phone]. Chrissy Frazier Microscopic examination of blood, culture Culture Observations: NO GROWTH AT 5 DAYS. Normal [facility] Comment on above: Performed By: #### B LDCX1 ####[facility] Rfesuzehpl[address] [place], [place] [id number]. Chrissy Frazier CULTURE URINEon 10-23-2022 CULTURE URINE Culture Observations: NO GROWTH. Normal [facility] Comment on above: Performed By: #### U RCX ####[facility] Pypqtcqiti15[address] [place], [place] [address]Dr. Chrissy Frazier Covid-19 PCR (CVDTB)on SARS-CoV-2 (COVID-19) RNA RHIANNON+probe Ql (Unsp spec) Not detected Normal NOT DETECTED [facility] Comment on above: Result Comment: When diagnostic testing is negative, the possibility of a false negative should be considered inthe context of a patient's recent exposures and the presence of clinical signs and symptomsconsistent with SARS-CoV-2.This test is not yet approved or cleared by the [place] FDA. When there are no FDA-approved or cleared tests available, and other criteria are met, FDA can make tests available under an emergency access mechanism called an Emergency Use Authorization (EUA). The EUA for this test is supported by the Reimbursement Manager of Health and Human Service's declaration that circumstances exist to justify the emergency use of in vitro diagnostics for the detection and/or diagnosis of the virus that causes COVID-19. This EUA will remain in effect for the duration of the COVID-19 declaration justifying emergency of IVDs, unless it is terminated or revoked by the FDA (after which the test may no longer be used). Performed By: #### C VDTBH ####[facility] Isq[address]zz[address] [place] [address]. Chrissy Frazier INFLUENZA A AND B AGon 10-23 INFLUANEGH SEE BELOW Normal [facility] Comment on above: Result Comment: Nega tive for Flu A protein angiten. Infection due to Flu A cannot be ruled out. Flu A angiten in the sample may be below the detection limit of the test. Performed By: #### I NFLUAB ####[facility] Aqztstxmgi4[address] [place], [place] [address]Dr. Chrissy Frazier INFLUBNEGH SEE BELOW Normal [facility] Comment on above: Result Comment: Nega tive for Flu B protein antigen. Infection due to Flu B cannot be ruled out. Flu B antigen in the sample may be below the detection limit of the test. Performed By: #### I NFLUAB ####[facility] Mjjfnuykjr7[address] [place], [place] [address]Dr. Chrissy [facility] INFLUENZA A AG Negative Normal NEGATIVE SEE COMMENT [facility] Comment on above: Performed By: #### I NFLUAB ####[facility] Qygfwlebwq9857 [place] [address]Dr. Chrissy Frazier INFLUENZA B AG Negative Normal NEGATIVE SEE COMMENT [facility] Comment on above: Performed By: #### I NFLUAB ####[facility] Einjhosbff7239 [place] [address]Dr. Chrissy Frazier INTERNAL CONTROLS Within Normal Limits Normal Wi thin Normal Limits [facility] Comment on above: Performed By: #### I NFLUAB ####[facility] Xtizrgjwub[address] [place], [place] [address]Dr. Chrissy Frazier LACTATE/LACTIC ACIDon 2021 Lactate [Moles/Vol] 2.1 mmol/L Critically high 0.4-1.9 [facility] Comment on above: Performed By: #### L ACT ####[facility] Sltwjgdpqw37[address] [place], [place] [address]Dr. Chrissy Frazier Lactate [Moles/Vol] 6.9 mmol/L Critically high 0.4-1.9 [facility] Comment on above: Performed By: #### L ACT ####[facility] Uftelzxqje[address] [place], [place] [address]Dr. Chrissy Frazier LIPASEon 10-23-2022 Lipase [Catalytic activity/Vol] 72.0 U/L Critically low 73.0-393.0 [facility] Comment on above: Performed By: #### C OSWALD ADAIR AMY ####[facility] Jszpwpgybz[address] [place], [place] [address]Dr. Chrissy Frazier PROF 14(COMP METB)on 022 Albumin [Mass/Vol] 3.9 g/dL Normal 3.4-5.0 [facility] Comment on above: Performed By: #### C OSWALD ADAIR AMY ####[facility] Hmnkafojgn7199[address] [place], [place] [address]Dr. Chrissy Frazier Albumin/Globulin [Mass ratio] 0.9 {ratio} Normal [facility] Comment on above: Performed By: #### C OSWALD ADAIR AMY ####[facility] Ayzubgnswd7905 [place] [address]Dr. Chrissy Frazier ALP [Catalytic activity/Vol] 82 U/L Normal 46-116 [facility] Comment on above: Performed By: #### C MP, LIPA, TERRENCE ####[facility] Udjwendodq8254 [place] [address]Dr. Chrissy Frazier ALT [Catalytic activity/Vol] 25 U/L Normal 16-63 [facility] Comment on above: Performed By: #### C MP, LIPA, TERRENCE ####[facility] Jotawvffcm6452 [place] [address]Dr. Chrissy Frazier Anion gap [Moles/Vol] 18.1 mmol/L Normal [facility] Comment on above: Performed By: #### C MP, LIPA, TERRENCE ####[facility] Ojranuulmc7[address] [place], [place] [address]Dr. Chrissy Frazier AST [Catalytic activity/Vol] 17 U/L Normal 15-37 [facility] Comment on above: Performed By: #### C MP, LIPA, TERRENCE ####[facility] Hcyvijchyw[address] [place], [place] [address]Dr. Chrissy Frazier Bilirubin [Mass/Vol] 0.5 mg/dL Normal 0.2-1.0 [facility] Comment on above: Performed By: #### C MP, LIPA, TERRENCE ####[facility] Vakwwrvzek4559 [place] [address]Dr. Chrissy Frazier Calcium [Mass/Vol] 9.1 mg/dL Normal 8.5-10.1 [facility] Comment on above: Performed By: #### C MP, LIPA, TERRENCE ####[facility] Tpbjafslvy2224 [place] [address]Dr. Chrissy Frazier Chloride [Moles/Vol] 101 mmol/L Normal 98-107 [facility] Comment on above: Performed By: #### C MP, LIPA, TERRENCE ####[facility] Jgnnjvdhom6565 [place] [address]Dr. Chrissy Frazier CO2 [Moles/Vol] 19.2 mmol/L Critically low 21.0-32.0 [facility] Comment on above: Performed By: #### C OSWALD ADAIR, TERRENCE ####[facility] Sbqbnlryqy6899 [place] [address]Dr. Chrissy Frazier Creatinine [Mass/Vol] 1.72 mg/dL Critically high 0.70-1.30 [facility] Comment on above: Performed By: #### C TESSA ADAIRA, TERRENCE ####[facility] Micuaqtfmp8644 [place] [address]Dr. Chrissy Frazier EGFR-AF MALIAN 56 mL/min/1.73m2 Critically low >=60 [facility] Comment on above: Performed By: #### C OSWALD ADAIR, TERRENCE ####[facility] Ebrysffptl[address] [place], [place] [address]Dr. Chrissy Frazier EGFR-NON AF MALIAN 46 mL/min/1.73m2 Critically low >=60 [facility] Comment on above: Performed By: #### C MANA LIPA, TERRENCE ####[facility] Trytgomshk3[address] [place], [place] [address]Dr. Chrissy Frazier Globulin (S) [Mass/Vol] 4.2 g/dL Normal [facility] Comment on above: Performed By: #### C OSWALD ADAIR, TERRENCE ####[facility] Sacldlujof4680 [place] [address]Dr. Chrissy Frazier Glucose [Mass/Vol] 126 mg/dL Critically high 74-106 T [facility] Comment on above: Performed By: #### C MANA LIPA, TERRENCE ####[facility] Exxwytiliu5375 [place] [address]Dr. Chrissy Frazier Potassium [Moles/Vol] 3.3 mmol/L Critically low 3.5-5.1 [facility] Comment on above: Performed By: #### C MANA LIPA, TERRENCE ####[facility] Tgvvgkbajw7998 [place] [address]Dr. Tishrowan Frazier Protein [Mass/Vol] 8.1 g/dL Normal 6.4-8.2 [facility] Comment on above: Performed By: #### C MANA LIPA, TERRENCE ####[facility] Izzcuhoknl7157 [place] [address]Dr. Chrissy Frazier Sodium [Moles/Vol] 135 mmol/L Critically low 136-145 [facility] Comment on above: Performed By: #### C MANA LIPA, TERRENCE ####[facility] Agbdrkhvnd[address] [place], [place] [address]Dr. Chrissy Frazier Urea nitrogen [Mass/Vol] 13.0 mg/dL Normal 7.0-18.0 [facility] Comment on above: Performed By: #### C MANA LIPA, TERRENCE ####[facility] Kfkzvqgaoj45[address] [place], [place] [address]Dr. Chrissy Frazier Urea nitrogen/Creatinine [Mass ratio] 7.6 mg/mg Normal [facility] Comment on above: Performed By: #### C MANA LIPBean, TERRENCE ####[facility] Ynhaayvvxq4966[address] [place], [place] [address]Dr. Chrissy Frazier UA RANDOM W/MICROSCOPICon BACTERIA NONE SEEN Normal NONE SEEN [facility] Comment on above: Performed By: #### U AMIC ####[facility] Qyuuvglesa5047[address] [place], [place] [address]Dr. Chrissy Frazier Bilirubin Ql (U) Negative Normal NEGATIVE [facility] Comment on above: Performed By: #### U AMIC ####[facility] Twoxqkfpxk3727[address] [place], [place] [address]Dr. Chrissy Frazier CAST NONE SEEN Normal NONE SEEN [facility] Comment on above: Performed By: #### U AMIC ####[facility] Livjfoxuyl2752[address] [place], [place] [address]Dr. Chrissy Frazier Clarity (U) CLEAR Normal CLEAR [facility] Comment on above: Performed By: #### U AMIC ####[facility] Onsfyxwpel79[address] [place], [place] [address]Dr. Chrissy Frazier Color (U) LT. YELLOW Normal YELLOW [facility] Comment on above: Performed By: #### U AMIC ####[facility] Cascsgbtms[address] [place], [place] [address]Dr. Chrissy Frazier Crystals LM Nom (Urine sed) NONE SEEN Normal NONE SEEN [facility] Comment on above: Performed By: #### U AMIC ####[facility] Itxuzgzkvs4164[address] [place], [place] [address]Dr. Chrissy Frazier Epithelial cells LM Ql (Urine sed) FEW Abnormal NONE SEEN /RARE [facility] Comment on above: Performed By: #### U AMIC ####[facility] Wfuscywzyx7[address] [place], [place] [address]Dr. Chrissy Frazier Glucose Ql (U) Negative Normal NEGATIVE [facility] Comment on above: Performed By: #### U AMIC ####[facility] Iksduoflgk277[address] [place], [place] [address]Dr. Chrissy Frazier Hemoglobin Ql (U) Negative Normal NEGATIVE [facility] Comment on above: Performed By: #### U AMIC ####[facility] Oawxcgjiyv2227[address] [place], [place] [address]Dr. Chrissy Frazier Ketones Ql (U) 15 mg/dl Abnormal NEGATIVE [facility] Comment on above: Performed By: #### U AMIC ####[facility] Koojergris3714[address] [place], [place] [address]Dr. Chrissy Frazier LEUKOCYTES Negative Normal NEGATIVE [facility] Comment on above: Performed By: #### U AMIC ####[facility] Vqewivrsdk88[address] [place], [place] [address]Dr. Chrissy Frazier MUCOUS NONE SEEN Normal NONE SEEN [facility] Comment on above: Performed By: #### U AMIC ####[facility] Fyffrwjmlo76[address] [place], [place] [address]Dr. Chrissy Frazier Nitrite Ql (U) Negative Normal NEGATIVE [facility] Comment on above: Performed By: #### U AMIC ####[facility] Kyekpywwgw8535[address] [place], [place] [address]Dr. Chrissy Frazier pH (U) 6.0 [pH] Normal 5-9 [facility] Comment on above: Performed By: #### U AMIC ####[facility] Lxulnykymo664[address] [place], [place] [address]Dr. Chrissy Frazier RBC 0-2 Normal 0-2 [facility] Comment on above: Performed By: #### U AMIC ####[facility] Bhvdbgnmyi2475 [place] [id number]. Chrissy Frazier SPEC GRAVITY 1.010 Normal 1.005-<=1.025 [facility] Comment on above: Performed By: #### U AMIC ####[facility] Oaqcethnqr0858 [place] [address]Dr. Chrissy Freddie UA PROTEIN Negative Normal NEGATIVE/ TRACE [facility] Comment on above: Performed By: #### U AMIC ####[facility] Itvqxvnenr4949 [place] [id number]. Chrissy Freddie Urobilinogen Qn (U) 0.2 {Estrellita'U}/dL Normal 0.2 - 1. 0 [facility] Comment on above: Performed By: #### U AMIC ####[facility] Aawsbmyusy3865[address] [place], [place] [address]Dr. Chrissy Freddie WBC NONE SEEN Normal NONE SEEN [facility] Comment on above: Performed By: #### U AMIC ####[facility] Cwlzmsljzz0201[address] [place], [place] [address]Dr. Chrissy Freddie AMYLASEon 10-22-2022 Amylase [Catalytic activity/Vol] 28 U/L Normal 25-115 [facility] Comment on above: Performed By: #### L IPA, CMP, TERRENCE ####[facility] Edpqzkvsmd2337[address] [place], [place] [address]Dr. Chrissy Freddie CBC AUTO DIFFon 10-22-2022 BASO # 0.0 103/ul Normal 0.0-0.1 [facility] Comment on above: Performed By: #### C BC ####[facility] Hhsslrbwdn7[address] [place], [place] [address]Dr. Tishrowan Frazier Basophils/100 WBC (Bld) 0.2 % Normal 0.2-2.0 [facility] Comment on above: Performed By: #### C BC ####[facility] Yqjuzvsgnq2668[address] [place], [place] [address]Dr. Chrissy Frazier EO # 0.0 103/ul Normal 0.0-0.7 [facility] Comment on above: Performed By: #### C BC ####[facility] Xwudbukdbg07[address] [place], [place] [address]Dr. Chrissy Frazier Eosinophils/100 WBC (Bld) 0.1 % Critically low 0.9-7.0 [facility] Comment on above: Performed By: #### C BC ####[facility] Nnqmsxistn00[address] [place], [place] [address]Dr. Chrissy Frazier Erythrocyte distribution width (RBC) [Ratio] 14.4 % Normal 11.0-15.0 [facility] Comment on above: Performed By: #### C BC ####[facility] Tpzxubtpks25[address] [place], [place] [address]Dr. Chrissy Frazier Hematocrit (Bld) [Volume fraction] 45.2 % Normal 42.0-54.0 [facility] Comment on above: Performed By: #### C BC ####[facility] Bgfpczvmlw[address] [place], [place] [address]Dr. Chrissy Frazier Hemoglobin (Bld) [Mass/Vol] 15.4 g/dL Normal 14.0-18.0 [facility] Comment on above: Performed By: #### C BC ####[facility] Ukvzrdqjro1669[address] [place], [place] [address]Dr. Tishrowan Freddie IG # 0.07 10e3/ul Critically high 0.00-0.03 [facility] Comment on above: Performed By: #### C BC ####[facility] Gafntjqecz8229[address] [place], [place] [address]Dr. Chrissy Frazier IG % 0.4 % Normal 0.0-0.5 [facility] Comment on above: Performed By: #### C BC ####[facility] Kkkmahbcam55[address] [place], [place] [address]Dr. Chrissy Frazier LYMPH # 2.0 103/ul Normal 1.2-3.8 [facility] Comment on above: Performed By: #### C BC ####[facility] Ojuilsogut7[address] [place], [place] [address]DrNancy Frazier Lymphocytes/100 WBC (Bld) 12.2 % Critically low 20.5-60.0 [facility] Comment on above: Performed By: #### C BC ####[facility] Hyvlmgdpnb0730 [place] [address]DrNancy Frazier MANUAL DIFF REQ NO Normal [facility] Comment on above: Performed By: #### C BC ####[facility] Drapwqquok7051 [place] [address]DrNancy Frazier MCH (RBC) [Entitic mass] 28.3 pg Normal 25.9-34.0 [facility] Comment on above: Performed By: #### C BC ####[facility] Gduyyegaxg85[address] [place], [place] [address]DrNancy Frazier MCHC (RBC) [Mass/Vol] 34.1 g/dL Normal 29.9-35.2 [facility] Comment on above: Performed By: #### C BC ####[facility] Ldukwaeaij7[address] [place], [place] [address]DrNancy Frazier MCV (RBC) [Entitic vol] 82.9 fL Normal 80.0-94.0 [facility] Comment on above: Performed By: #### C BC ####[facility] Kfkrutrlxk[address] [place], [place] [address]DrNancy Frazier MONO # 0.3 103/ul Normal 0.3-0.8 [facility] Comment on above: Performed By: #### C BC ####[facility] [address]hwfpcofxj[address] [place], [place] [address]DrNancy Frazier Monocytes/100 WBC (Bld) 2.0 % Normal 1.7-12.0 [facility] Comment on above: Performed By: #### C BC ####[facility] Zdewwmohco[address] [place], [place] [address]DrNancy Frazier NEUT # 14.0 103/ul Critically high 1.4-6.5 [facility] Comment on above: Performed By: #### C BC ####[facility] Mhpmlwputc[address] [place], [place] [address]DrNancy Frazier Neutrophils/100 WBC (Bld) 85.1 % Critically high 43.0-75.0 [facility] Comment on above: Performed By: #### C BC ####[facility] Orukxzebgo[address] [place] [address]Dr. Chrissy Frazier Platelet mean volume (Bld) [Entitic vol] 10.6 fL Normal 9.5-13.5 [facility] Comment on above: Performed By: #### C BC ####[facility] Nrsugmagni[address] [place] [address]Dr. Chrissy Frazier PLT 411 103/ul Normal 150-450 [facility] Comment on above: Performed By: #### C BC ####[facility] Lskhmnainh[address] [place], [place] [address]Dr. Chrissy Frazier RBC 5.45 106/ul Normal 4.70-6.10 [facility] Comment on above: Performed By: #### C BC ####[facility] Scbqalkuje[address] [place], [place] [address]DrNancy Crhissy Frazier WBC 16.5 103/ul Critically high 4.0-11.0 [facility] Comment on above: Performed By: #### C BC ####[facility] Jwimzeoqpz[address] [place], [place] [address]DrNancy Chrissy Frazier LIPASEon 10-22-2022 Lipase [Catalytic activity/Vol] 57.0 U/L Critically low 73.0-393.0 [facility] Comment on above: Performed By: #### L IPA CMP, TERRENCE ####[facility] Joxdjxziry[address] [place] [address]DrNancy Tishrowan Frazier PROF 14(COMP METB)on 022 Albumin [Mass/Vol] 4.2 g/dL Normal 3.4-5.0 [facility] Comment on above: Performed By: #### L IPA CMP, TERRENCE ####[facility] Pcfhimezza5924 [place] [address]DrNancy Chrissy Freddie Albumin/Globulin [Mass ratio] 1.0 {ratio} Normal [facility] Comment on above: Performed By: #### L IPA CMP, TERRENCE ####[facility] Qqapvovewm0939 [place] [address]Dr. Chrissy Frazier ALP [Catalytic activity/Vol] 92 U/L Normal 46-116 [facility] Comment on above: Performed By: #### L IPA, CMP, TERRENCE ####[facility] Uxfmiduyck5235 [place] [address]Dr. Chrissy Frazier ALT [Catalytic activity/Vol] 26 U/L Normal 16-63 [facility] Comment on above: Performed By: #### L IPA, CMP, TERRENCE ####[facility] Zfsmfpzyid1025 [place] [address]Dr. Chrissy Frazier Anion gap [Moles/Vol] 19.5 mmol/L Normal [facility] Comment on above: Performed By: #### L IPA, CMP, TERRENCE ####[facility] Rgytgcmjdl[address] [place], [place] [address]Dr. Chrissy Frazier AST [Catalytic activity/Vol] 19 U/L Normal 15-37 [facility] Comment on above: Performed By: #### L IPA, CMP, TERRENCE ####[facility] Jqvwdxndbj[address] [place], [place] [address]Dr. Chrissy Frazier Bilirubin [Mass/Vol] 0.7 mg/dL Normal 0.2-1.0 [facility] Comment on above: Performed By: #### L IPA, CMP, TERRENCE ####[facility] Dxwjuplcih[address] [place], [place] [address]Dr. Chrissy Frazier Calcium [Mass/Vol] 9.6 mg/dL Normal 8.5-10.1 [facility] Comment on above: Performed By: #### L IPA, CMP, TERRENCE ####[facility] Txqijcssod4826 [place] [address]Dr. Chrissy Frazier Chloride [Moles/Vol] 102 mmol/L Normal 98-107 [facility] Comment on above: Performed By: #### L IPA, CMP, TERRENCE ####[facility] Zuzkevgxmc1202 [place] [address]Dr. Chrissy Frazier CO2 [Moles/Vol] 19.1 mmol/L Critically low 21.0-32.0 [facility] Comment on above: Performed By: #### L IPA, CMP, TERRENCE ####[facility] Sdeswyldeh2616 [place] [address]Dr. Chrissy Freddie Creatinine [Mass/Vol] 1.47 mg/dL Critically high 0.70-1.30 [facility] Comment on above: Performed By: #### L IPA, CMP, TERRENCE ####[facility] Qoxpzjyhwp1096 [place] [address]Dr. Tishrowan Freddie EGFR-AF MALIAN >60 Normal >=60 [facility] Comment on above: Performed By: #### L IPA, CMP, TERRENCE ####[facility] Thtscqdeja04[address] [place], [place] [address]Dr. Chrissy Frazier EGFR-NON AF MALIAN 56 mL/min/1.73m2 Critically low >=60 [facility] Comment on above: Performed By: #### L IPA, CMP, TERRENCE ####[facility] Zhljlfarkv[address] [place], [place] [address]Dr. Chrissy Frazier Globulin (S) [Mass/Vol] 4.3 g/dL Normal [facility] Comment on above: Performed By: #### L IPA CMP, TERRENCE ####[facility] Qanmwiwscn6[address] [place], [place] [address]Dr. Chrissy Frazier Glucose [Mass/Vol] 189 mg/dL Critically high 74-106 [facility] Comment on above: Performed By: #### L IPA, CMP, TERRENCE ####[facility] Llohqwpimj[address] [place], [place] [address]Dr. Chrissy Frazier Potassium [Moles/Vol] 4.6 mmol/L Normal 3.5-5.1 [facility] Comment on above: Performed By: #### L IPA, CMP, TERRENCE ####[facility] Otmntlejfg6[address] [place], [place] [address]Dr. Chrissy Frazier Protein [Mass/Vol] 8.5 g/dL Critically high 6.4-8.2 [facility] Comment on above: Performed By: #### L IPA, CMP, TERRENCE ####[facility] Hxihveyvck[address] [place], [place] [id number]. Chrissy Frazier Sodium [Moles/Vol] 136 mmol/L Normal 136-145 [facility] Comment on above: Performed By: #### L IPA CMP, TERRENCE ####[facility] Gltyvvifqz4134 [place] [address]Dr. Chrissy Frazier Urea nitrogen [Mass/Vol] 16.0 mg/dL Normal 7.0-18.0 [facility] Comment on above: Performed By: #### L IPA CMP, TERRENCE ####[facility] Rkvqerbtaf[address] [place], [place] [address]Dr. Chrissy Frazier Urea nitrogen/Creatinine [Mass ratio] 10.9 mg/mg Normal [facility] Comment on above: Performed By: #### L IPA CMP, TERRENCE ####[facility] Mclxufsdkv2313[address] [place], [place] [address]Dr. Chrissy Freddie AMYLASEon 09-03-2022 Amylase [Catalytic activity/Vol] 25 U/L Normal 25-115 [facility] Comment on above: Performed By: #### L IPA TERRENCE, CMP ####[facility] Ahotrdhizq9435[address] [place], [place] [address]Dr. Chrissy Freddie CBC AUTO DIFFon 09-03-2022 BASO # 0.0 103/ul Normal 0.0-0.1 [facility] Comment on above: Performed By: #### C BC ####[facility] Ugdzdgjekn35[address] [place], [place] [address]Dr. Chrissy Freddie Basophils/100 WBC (Bld) 0.1 % Critically low 0.2-2.0 [facility] Comment on above: Performed By: #### C BC ####[facility] Vfxlsdvpno24[address] [place], [place] [address]Dr. Tishrowan Frazier EO # 0.0 103/ul Normal 0.0-0.7 [facility] Comment on above: Performed By: #### C BC ####[facility] Pstyocvsxb8208[address] [place], [place] [address]Dr. Tishrowan Freddie Eosinophils/100 WBC (Bld) 0.1 % Critically low 0.9-7.0 [facility] Comment on above: Performed By: #### C BC ####[facility] Zbnyidncue37[address] [place] [address]Dr. Chrissy Frazier Erythrocyte distribution width (RBC) [Ratio] 14.0 % Normal 11.0-15.0 [facility] Comment on above: Performed By: #### C BC ####[facility] Igtmmekjfc[address] [place], [place] [address]Dr. Chrissy Frazier Hematocrit (Bld) [Volume fraction] 42.5 % Normal 42.0-54.0 [facility] Comment on above: Performed By: #### C BC ####[facility] Nwmtrtzvwy2[address] [place], [place] [address]Dr. Chrissy Frazier Hemoglobin (Bld) [Mass/Vol] 14.1 g/dL Normal 14.0-18.0 [facility] Comment on above: Performed By: #### C BC ####[facility] Lmcmutncqn55[address] [place], [place] [address]Dr. Chrissy Frazier IG # 0.06 10e3/ul Critically high 0.00-0.03 [facility] Comment on above: Performed By: #### C BC ####[facility] Xeybkxrsdo23[address] [place], [place] [address]Dr. Chrissy Frazier IG % 0.4 % Normal 0.0-0.5 [facility] Comment on above: Performed By: #### C BC ####[facility] Blxfrwucgi0[address] [place], [place] [address]Dr. Chrissy Frazier LYMPH # 2.5 103/ul Normal 1.2-3.8 [facility] Comment on above: Performed By: #### C BC ####[facility] Jukbpwhaab[address] [place], [place] [address]Dr. Chrissy Frazier Lymphocytes/100 WBC (Bld) 16.3 % Critically low 20.5-60.0 [facility] Comment on above: Performed By: #### C BC ####[facility] Zgitsgvayz33[address] [place], [place] [address]Dr. Chrissy Frazier MANUAL DIFF REQ NO Normal [facility] Comment on above: Performed By: #### C BC ####[facility] [address]nygeudf[address] [place] [phone]. Chrissy Freddie MCH (RBC) [Entitic mass] 28.1 pg Normal 25.9-34.0 [facility] Comment on above: Performed By: #### C BC ####[facility] Qjyzueubcp6500 [place] [phone]. Chrissy Freddie MCHC (RBC) [Mass/Vol] 33.2 g/dL Normal 29.9-35.2 [facility] Comment on above: Performed By: #### C BC ####[facility] Cxvutqjnkd8187 [place] [address]Dr. Chrissy Freddie MCV (RBC) [Entitic vol] 84.8 fL Normal 80.0-94.0 [facility] Comment on above: Performed By: #### C BC ####[facility] Ukgcyzyfdy[address] [place], [place] [address]DrNancy Frazier MONO # 1.1 103/ul Critically high 0.3-0.8 [facility] Comment on above: Performed By: #### C BC ####[facility] Hvolcavdpe79[address] [place], [place] [address]Dr. Tishrowan Frazier Monocytes/100 WBC (Bld) 7.4 % Normal 1.7-12.0 [facility] Comment on above: Performed By: #### C BC ####[facility] Lzhkyyndkm[address] [place], [place] [address]Dr. Chrissy Frazier NEUT # 11.5 103/ul Critically high 1.4-6.5 [facility] Comment on above: Performed By: #### C BC ####[facility] Bnoqtvtwrs[address] [place], [place] [id number] Frazier Neutrophils/100 WBC (Bld) 75.7 % Critically high 43.0-75.0 [facility] Comment on above: Performed By: #### C BC ####[facility] Vbqmqjwsny5837 [place] [address]DrNancy Frazier Platelet mean volume (Bld) [Entitic vol] 10.6 fL Normal 9.5-13.5 [facility] Comment on above: Performed By: #### C BC ####[facility] Dbylhkxdhu5993 [place] [address]Dr. Chrissy Frazier PLT 310 103/ul Normal 150-450 [facility] Comment on above: Performed By: #### C BC ####[facility] Sldxwrsfot6366 [place] [address]Dr. Chrissy Frazier RBC 5.01 106/ul Normal 4.70-6.10 [facility] Comment on above: Performed By: #### C BC ####[facility] Mghcwykkol7952 [place] [address]Dr. Chrissy Frazier WBC 15.2 103/ul Critically high 4.0-11.0 [facility] Comment on above: Performed By: #### C BC ####[facility] Ecjfzxhzrm[address] [place], [place] [address]Dr. Chrissy Frazier LIPASEon 09-03-2022 Lipase [Catalytic activity/Vol] 46.0 U/L Critically low 73.0-393.0 [facility] Comment on above: Performed By: #### L TERRENCE VICTORIA, CMP ####[facility] Ubgjwtiftq[address] [place], [place] [address]Dr. Chrissy Frazier PROF 14(COMP METB)on 022 Albumin [Mass/Vol] 3.7 g/dL Normal 3.4-5.0 [facility] Comment on above: Performed By: #### L TERRENCE VICTORIA, CMP ####[facility] Bfjgvropmy3826 [place] [address]Dr. Chrissy Frazier Albumin/Globulin [Mass ratio] 1.0 {ratio} Normal [facility] Comment on above: Performed By: #### L TERRENCE VICTORIA, CMP ####[facility] Nmyypxgzid01[address] [place], [place] [address]Dr. Chrissy Frazier ALP [Catalytic activity/Vol] 65 U/L Normal 46-116 [facility] Comment on above: Performed By: #### L TERRENCE VICTORIA, CMP ####[facility] Ygrreyaymg[address] [place], [place] [address]Dr. Chrissy Frazier ALT [Catalytic activity/Vol] 42 U/L Normal 16-63 [facility] Comment on above: Performed By: #### L TERRENCE VICTORIA, CMP ####[facility] Dvwzsrxuol9619 [place] [address]Dr. Chrissy Frazier Anion gap [Moles/Vol] 14.4 mmol/L Normal [facility] Comment on above: Performed By: #### L TERRENCE VICTORIA, CMP ####[facility] Rdrmkuolit4559 [place] [address]Dr. Chrissy Frazier AST [Catalytic activity/Vol] 16 U/L Normal 15-37 [facility] Comment on above: Performed By: #### L TERRENCE VICTORIA, CMP ####[facility] Dlaawdsiep4185 [place] [address]Dr. Chrissy Frazier Bilirubin [Mass/Vol] 0.4 mg/dL Normal 0.2-1.0 [facility] Comment on above: Performed By: #### L TERRENCE VICTORIA, CMP ####[facility] Heskmblmfi1210 [place] [address]Dr. Chrissy Frazier Calcium [Mass/Vol] 8.7 mg/dL Normal 8.5-10.1 [facility] Comment on above: Performed By: #### L TERRENCE VICTORIA, CMP ####[facility] Dqiujrhfqa5435 [place] [address]Dr. Chrissy Frazier Chloride [Moles/Vol] 105 mmol/L Normal 98-107 [facility] Comment on above: Performed By: #### L TERRENCE VICTORIA, CMP ####[facility] Maljabnwlp3179 [place] [address]Dr. Chrissy Frazier CO2 [Moles/Vol] 22.6 mmol/L Normal 21.0-32.0 [facility] Comment on above: Performed By: #### L TERRENCE VICTORIA, CMP ####[facility] Tosqmjzlgi2522 [place] [address]Dr. Chrissy Frazier Creatinine [Mass/Vol] 1.11 mg/dL Normal 0.70-1.30 [facility] Comment on above: Performed By: #### L TERRENCE VICTORIA, CMP ####[facility] Xaqwlhdadj3418 [place] [id number]. Chrissy Frazier EGFR-AF MALIAN >60 Normal >=60 [facility] Comment on above: Performed By: #### L TERRENCE VICTORIA, CMP ####[facility] Aqapuafmcj8309 [place] [phone]. Chrissy Frazier EGFR-NON AF MALIAN >60 Normal >=60 [facility] Comment on above: Performed By: #### L TERRENCE VICTORIA, CMP ####[facility] Aobijgmcvr9475 [place] [address]Dr. Chrissy Frazier Globulin (S) [Mass/Vol] 3.7 g/dL Normal [facility] Comment on above: Performed By: #### L TERRENCE VICTORIA, CMP ####[facility] Qomolbozzu9332 [place] [address]Dr. Chrissy Frazier Glucose [Mass/Vol] 121 mg/dL Critically high 74-106 [facility] Comment on above: Performed By: #### L TERRENCE VICTORIA, CMP ####[facility] Hsonkyhujs9168 [place] [address]Dr. Chrissy Frazier Potassium [Moles/Vol] 4.0 mmol/L Normal 3.5-5.1 [facility] Comment on above: Performed By: #### L TERRENCE VICTORIA, CMP ####[facility] Qznbtslrql7[address] [place], [place] [address]Dr. Chrissy Frazier Protein [Mass/Vol] 7.4 g/dL Normal 6.4-8.2 [facility] Comment on above: Performed By: #### L TERRENCE VITCORIA, CMP ####[facility] Neqpsrtdhf0074 [place] [address]Dr. Chrissy Frazier Sodium [Moles/Vol] 138 mmol/L Normal 136-145 [facility] Comment on above: Performed By: #### L TERRENCE VICTORIA, CMP ####[facility] Xcqctxqrll7847 [place] [address]Dr. Chrissy Frazier Urea nitrogen [Mass/Vol] 6.0 mg/dL Critically low 7.0-18.0 [facility] Comment on above: Performed By: #### L IPA, TERRENCE, CMP ####[facility] Lzgfyjepmu7[address] [place], [place] [address]Dr. Chrissy Frazier Urea nitrogen/Creatinine [Mass ratio] 5.4 mg/mg Normal [facility] Comment on above: Performed By: #### L IPA, TERRENCE, CMP ####[facility] Lngwoxgkrq8638[address] [place], [place] [address]Dr. Chrissy Frazier AMYLASEon 09-02-2022 Amylase [Catalytic activity/Vol] 29 U/L Normal 25-115 [facility] Comment on above: Performed By: #### A MY, CMP, LIPA ####[facility] Saigyvcubl[address] [place], [place] [address]Dr. Chrissy Frazier CBC AUTO DIFFon 09-02-2022 BASO # 0.1 103/ul Normal 0.0-0.1 [facility] Comment on above: Performed By: #### C BC ####[facility] Qqyctqsnbl[address] [place], [place] [address]Dr. Chrissy Frazier Basophils/100 WBC (Bld) 0.4 % Normal 0.2-2.0 [facility] Comment on above: Performed By: #### C BC ####[facility] Qnkjyqubyt[address] [place], [place] [address]Dr. Chrissy Frazier EO # 0.1 103/ul Normal 0.0-0.7 [facility] Comment on above: Performed By: #### C BC ####[facility] Xwhvcbkeya10[address] [place], [place] [address]Dr. Chrissy Frazier Eosinophils/100 WBC (Bld) 0.7 % Critically low 0.9-7.0 [facility] Comment on above: Performed By: #### C BC ####[facility] Xeldvhruir[address] [place], [place] [address]Dr. Chrissy Frazier Erythrocyte distribution width (RBC) [Ratio] 13.7 % Normal 11.0-15.0 [facility] Comment on above: Performed By: #### C BC ####[facility] Wrarlfiugx5087 [place] [address]Dr. Chrissy Freddie Hematocrit (Bld) [Volume fraction] 48.3 % Normal 42.0-54.0 [facility] Comment on above: Performed By: #### C BC ####[facility] Yzhbqhtmeb0519 [place] [address]Dr. Chrissy Frazier Hemoglobin (Bld) [Mass/Vol] 16.0 g/dL Normal 14.0-18.0 [facility] Comment on above: Performed By: #### C BC ####[facility] Pjphvlgzbl2581 [place] [address]Dr. Chrissy Frazier IG # 0.09 10e3/ul Critically high 0.00-0.03 [facility] Comment on above: Performed By: #### C BC ####[facility] Gcrtokybta[address] [place], [place] [address]Dr. Chrissy Frazier IG % 0.5 % Normal 0.0-0.5 [facility] Comment on above: Performed By: #### C BC ####[facility] Qwepyvjcvl[address] [place], [place] [address]Dr. Chrissy Frazier LYMPH # 3.7 103/ul Normal 1.2-3.8 [facility] Comment on above: Performed By: #### C BC ####[facility] Gmjaewqvrz9656 [place] [address]Dr. Chrissy Frazier Lymphocytes/100 WBC (Bld) 21.5 % Normal 20.5-60.0 [facility] Comment on above: Performed By: #### C BC ####[facility] Lojtxtwyhf2414 [place] [address]Dr. Chrissy Frazier MANUAL DIFF REQ NO Normal [facility] Comment on above: Performed By: #### C BC ####[facility] Hshpuqqafm4[address] [place], [place] [address]Dr. Chrissy Frazier MCH (RBC) [Entitic mass] 28.1 pg Normal 25.9-34.0 [facility] Comment on above: Performed By: #### C BC ####[facility] Ieduztkupz[address] [place], [place] [address]Dr. Chrissy Frazier MCHC (RBC) [Mass/Vol] 33.1 g/dL Normal 29.9-35.2 [facility] Comment on above: Performed By: #### C BC ####[facility] Qglgtqtwzw8052 [place] [id number]. Chrissy Frazier MCV (RBC) [Entitic vol] 84.7 fL Normal 80.0-94.0 [facility] Comment on above: Performed By: #### C BC ####[facility] Jkvkfdtcnh2141 [place] [address]Dr. Chrissy Frazier MONO # 0.7 103/ul Normal 0.3-0.8 [facility] Comment on above: Performed By: #### C BC ####[facility] Mpqqmerwuc2974 [place] [address]Dr. Chrissy Frazier Monocytes/100 WBC (Bld) 4.2 % Normal 1.7-12.0 [facility] Comment on above: Performed By: #### C BC ####[facility] Bduwblvati6048 [place] [address]Dr. Chrissy Frazier NEUT # 12.4 103/ul Critically high 1.4-6.5 [facility] Comment on above: Performed By: #### C BC ####[facility] Imwnqbrpyb1922 [place] [address]Dr. Chrissy Frazier Neutrophils/100 WBC (Bld) 72.7 % Normal 43.0-75.0 [facility] Comment on above: Performed By: #### C BC ####[facility] Tvmhlrqdkt7694 [place] [address]Dr. Chrissy Frazier Platelet mean volume (Bld) [Entitic vol] 10.9 fL Normal 9.5-13.5 [facility] Comment on above: Performed By: #### C BC ####[facility] Gzhvdyphry[address] [place], [place] [address]Dr. Chrissy Frazier PLT 386 103/ul Normal 150-450 [facility] Comment on above: Performed By: #### C BC ####[facility] Byddcggadt6776 [place] [address]Dr. Chrissy Frazier RBC 5.70 106/ul Normal 4.70-6.10 [facility] Comment on above: Performed By: #### C BC ####[facility] Pkjwumxzsi5890 [place] [phone]. Chrissy Frazier WBC 17.0 103/ul Critically high 4.0-11.0 [facility] Comment on above: Performed By: #### C BC ####[facility] Xygrlafgsr9554 [place] [phone]. Chrissy Frazier Covid-19 PCR (CVDTBH)on 08-21 SARS-CoV-2 (COVID-19) RNA RHIANNON+probe Ql (Unsp spec) Not detected Normal NOT DETECTED [facility] Comment on above: Result Comment: When diagnostic testing is negative, the possibility of a false negative should be considered inthe context of a patient's recent exposures and the presence of clinical signs and symptomsconsistent with SARS-CoV-2.This test is not yet approved or cleared by the [place] FDA. When there are no FDA-approved or cleared tests available, and other criteria are met, FDA can make tests available under an emergency access mechanism called an Emergency Use Authorization (EUA). The EUA for this test is supported by the Reimbursement Manager of Health and Human Service's declaration that circumstances exist to justify the emergency use of in vitro diagnostics for the detection and/or diagnosis of the virus that causes COVID-19. This EUA will remain in effect for the duration of the COVID-19 declaration justifying emergency of IVDs, unless it is terminated or revoked by the FDA (after which the test may no longer be used). Performed By: #### C VDTBH ####[facility] Lhprrhbxra5[address] [place] [phone]. Chrissy Frazier LACTATE/LACTIC ACIDon 2021 Lactate [Moles/Vol] 7.1 mmol/L Critically high 0.4-1.9 [facility] Comment on above: Performed By: #### L ACT ####[facility] Dhvwscogdq0024 [place] [address]Dr. Chrissy Frazier Lactate [Moles/Vol] 8.6 mmol/L Critically high 0.4-1.9 [facility] Comment on above: Performed By: #### L ACT ####[facility] Lbxhjjnfin3264 [place] [address]Dr. Chrissy Frazier LIPASEon 09-02-2022 Lipase [Catalytic activity/Vol] 60.0 U/L Critically low 73.0-393.0 [facility] Comment on above: Performed By: #### A MY, CMP, LIPA ####[facility] Cjyljfollk7163 [place] [address]Dr. Chrissy Frazier POINT OF CARE GLUCOSEon 08-21 Glucose [Mass/Vol] 140 mg/dL Critically high 74-106 [facility] Comment on above: Performed By: #### P OCGLUC ####[facility] Unozghndoe[address] [place], [place] [address]Dr. Chrissy Frazier PROF 14(COMP METB)on 022 Albumin [Mass/Vol] 4.3 g/dL Normal 3.4-5.0 [facility] Comment on above: Performed By: #### A MY, CMP, LIPA ####[facility] Xfyguulqeh8377 [place] [address]Dr. Chrissy Frazier Albumin/Globulin [Mass ratio] 1.0 {ratio} Normal [facility] Comment on above: Performed By: #### A MY, CMP, LIPA ####[facility] Gfobmknfbu1245 [place] [address]Dr. Chrissy Frazier ALP [Catalytic activity/Vol] 82 U/L Normal 46-116 [facility] Comment on above: Performed By: #### A MY, CMP, LIPA ####[facility] Hbcwcohuag6223 [place] [address]Dr. Chrissy Frazier ALT [Catalytic activity/Vol] 48 U/L Normal 16-63 [facility] Comment on above: Performed By: #### A MY, CMP, LIPA ####[facility] Qoghvhdxof2134 [place] [address]Dr. Chrissy Frazier Anion gap [Moles/Vol] 25.3 mmol/L Normal [facility] Comment on above: Performed By: #### A MY, CMP, LIPA ####[facility] Kyqtdmizcu0088 [place] [address]Dr. Chrissy Frazier AST [Catalytic activity/Vol] 33 U/L Normal 15-37 [facility] Comment on above: Performed By: #### A MY, CMP, LIPA ####[facility] Vasikvpwqx6184 [place] [address]Dr. Chrissy Frazier Bilirubin [Mass/Vol] 0.7 mg/dL Normal 0.2-1.0 [facility] Comment on above: Performed By: #### A MY, CMP, LIPA ####[facility] Ftfikfgplo6629 [place] [address]Dr. Chrissy Frazier Calcium [Mass/Vol] 9.5 mg/dL Normal 8.5-10.1 [facility] Comment on above: Performed By: #### A MY, CMP, LIPA ####[facility] [address]rlmsdxag[address] [place], [place] [address]Dr. Chrissy Frazier Chloride [Moles/Vol] 100 mmol/L Normal 98-107 [facility] Comment on above: Performed By: #### A MY, CMP, LIPA ####[facility] Hzaygchfnx5706 [place] [address]Dr. Chrissy Frazier CO2 [Moles/Vol] 14.2 mmol/L Critically low 21.0-32.0 [facility] Comment on above: Performed By: #### A MY, CMP, LIPA ####[facility] [address]gomybcm[address] [place] [address]Dr. Chrissy Frazier Creatinine [Mass/Vol] 1.70 mg/dL Critically high 0.70-1.30 [facility] Comment on above: Performed By: #### A MY, CMP, LIPA ####[facility] Zlpuwmrhpy5[address] [place] [address]Dr. Chrissy Frazier EGFR-AF MALIAN 57 mL/min/1.73m2 Critically low >=60 [facility] Comment on above: Performed By: #### A MY, CMP, LIPA ####[facility] Qzkfvmexqv6578 [place] [address]Dr. Chrissy Frazier EGFR-NON AF MALIAN 47 mL/min/1.73m2 Critically low >=60 [facility] Comment on above: Performed By: #### A MY, CMP, LIPA ####[facility] Tqqkddlqzk99[address] [place] [address]Dr. Chrissy Frazier Globulin (S) [Mass/Vol] 4.2 g/dL Normal [facility] Comment on above: Performed By: #### A MY, CMP, LIPA ####[facility] Gecptedwlj13[address] [place] [address]Dr. Chrissy Frazier Glucose [Mass/Vol] 212 mg/dL Critically high 74-106 [facility] Comment on above: Performed By: #### A MY, CMP, LIPA ####[facility] Xjnotgavln[address] [place], [place] [address]Dr. Chrissy Frazier Potassium [Moles/Vol] 3.5 mmol/L Normal 3.5-5.1 [facility] Comment on above: Performed By: #### A MY, CMP, LIPA ####[facility] Jzgcmljcvy[address] [place], [place] [address]Dr. Chrissy Frazier Protein [Mass/Vol] 8.5 g/dL Critically high 6.4-8.2 [facility] Comment on above: Performed By: #### A MY, CMP, LIPA ####[facility] Loxlxgqkxv7[address] [place] [address]Dr. Chrissy Frazier Sodium [Moles/Vol] 136 mmol/L Normal 136-145 [facility] Comment on above: Performed By: #### A MY, CMP, LIPA ####[facility] Jydqtsdoca06[address] [place], [place] [address]Dr. Chrissy Frazier Urea nitrogen [Mass/Vol] 9.0 mg/dL Normal 7.0-18.0 [facility] Comment on above: Performed By: #### A MY, CMP, LIPA ####[facility] Qhjbwuqnln8548 [place] [address]Dr. Chrissy Frazier Urea nitrogen/Creatinine [Mass ratio] 5.3 mg/mg Normal [facility] Comment on above: Performed By: #### A MY, CMP, LIPA ####[facility] Stwexynhbh7[address] [place] [address]Dr. Chrissy Frazier AMYLASEon 07-07-2022 Amylase [Catalytic activity/Vol] 33 U/L Normal 25-115 [facility] Comment on above: Performed By: #### C MP, TERRENCE, BNP, LIPA ####[facility] Sjqtfrnlpg[address] [place], [place] [address]Dr. Chrissy Frazier BNPon 07-07-2022 Natriuretic peptide B (Bld) [Mass/Vol] 29.0 pg/mL Normal <=450.0 [facility] Comment on above: Performed By: #### C MP, TERRENCE, BNP, LIPA ####[facility] Rglsplkikl[address] [place], [place] [address]Dr. Chrissy Frazier CBC AUTO DIFFon 07-07-2022 BASO # 0.0 103/ul Normal 0.0-0.1 [facility] Comment on above: Performed By: #### C BC ####[facility] Dqsntmjcry[address] [place], [place] [address]Dr. Chrissy Frazier Basophils/100 WBC (Bld) 0.4 % Normal 0.2-2.0 [facility] Comment on above: Performed By: #### C BC ####[facility] Ivxiwfmmja6038[address] [place], [place] [address]Dr. Chrissy Frazier EO # 0.3 103/ul Normal 0.0-0.7 [facility] Comment on above: Performed By: #### C BC ####[facility] Fcicwhpvvn[address] [place], [place] [address]Dr. Chrissy Frazier Eosinophils/100 WBC (Bld) 3.0 % Normal 0.9-7.0 [facility] Comment on above: Performed By: #### C BC ####[facility] Gbvusodlui4[address] [place], [place] [address]Dr. Chrissy Frazier Erythrocyte distribution width (RBC) [Ratio] 14.0 % Normal 11.0-15.0 [facility] Comment on above: Performed By: #### C BC ####[facility] Anenksrocw6413 [place] [address]DrNancy Frazier Hematocrit (Bld) [Volume fraction] 42.8 % Normal 42.0-54.0 [facility] Comment on above: Performed By: #### C BC ####[facility] Hcpqfuzaev9548 [place] [address]DrNancy Frazier Hemoglobin (Bld) [Mass/Vol] 14.3 g/dL Normal 14.0-18.0 [facility] Comment on above: Result Comment: IV F LUIDS RUNNING Performed By: #### C BC ####[facility] Tslhqpkhnp5[address] [place], [place] [address]DrNancy Frazier IG # 0.05 10e3/ul Critically high 0.00-0.03 [facility] Comment on above: Performed By: #### C BC ####[facility] Bebkvhyxet[address] [place], [place] [address]DrNancy Frazier IG % 0.5 % Normal 0.0-0.5 [facility] Comment on above: Performed By: #### C BC ####[facility] Iyrciehajp[address] [place], [place] [address]DrNancy Frazier LYMPH # 2.4 103/ul Normal 1.2-3.8 [facility] Comment on above: Performed By: #### C BC ####[facility] Ilfvsikgwa1507[address] [place], [place] [address]DrNancy Frazier Lymphocytes/100 WBC (Bld) 25.5 % Normal 20.5-60.0 [facility] Comment on above: Performed By: #### C BC ####[facility] Sxtlobincs2954[address] [place], [place] [address]DrNancy Frazier MANUAL DIFF REQ NO Normal [facility] Comment on above: Performed By: #### C BC ####[facility] Fwcgoxcvmx3337 [place] [address]DrNancy Frazier MCH (RBC) [Entitic mass] 28.5 pg Normal 25.9-34.0 [facility] Comment on above: Performed By: #### C BC ####[facility] Gcqeugrknx4403 [place] [id number]. Chrissy Freddie MCHC (RBC) [Mass/Vol] 33.4 g/dL Normal 29.9-35.2 [facility] Comment on above: Performed By: #### C BC ####[facility] Wqnugevhck4724 [place] [phone] Frazier MCV (RBC) [Entitic vol] 85.3 fL Normal 80.0-94.0 [facility] Comment on above: Performed By: #### C BC ####[facility] Sajsiesent16[address] [place], [place] [address]DrNancy Frazier MONO # 0.7 103/ul Normal 0.3-0.8 [facility] Comment on above: Performed By: #### C BC ####[facility] Qyslqusezd[address] [place], [place] [address]Dr. Chrissy Frazier Monocytes/100 WBC (Bld) 7.8 % Normal 1.7-12.0 [facility] Comment on above: Performed By: #### C BC ####[facility] Gzbrwilppn7[address] [place], [place] [address]Dr. Chrissy Frazier NEUT # 5.8 103/ul Normal 1.4-6.5 [facility] Comment on above: Performed By: #### C BC ####[facility] Edzyeedxzs1662[address] [place], [place] [address]Dr. Chrissy Frazier Neutrophils/100 WBC (Bld) 62.8 % Normal 43.0-75.0 [facility] Comment on above: Performed By: #### C BC ####[facility] Ebukmymupr3189[address] [place], [place] [address]DrNancy Frazier Platelet mean volume (Bld) [Entitic vol] 10.8 fL Normal 9.5-13.5 [facility] Comment on above: Performed By: #### C BC ####[facility] Mhsazqrpdu216[address] [place], [place] [address]Dr. Chrissy Frazier PLT 310 103/ul Normal 150-450 [facility] Comment on above: Performed By: #### C BC ####[facility] Xcbiaguclr9554 [place] [phone]. Tishrowan Freddie RBC 5.02 106/ul Normal 4.70-6.10 [facility] Comment on above: Performed By: #### C BC ####[facility] Iopwqwfyqz6113 [place], [place] [address]Aq. Tishrowan Freddie WBC 9.3 103/ul Normal 4.0-11.0 [facility] Comment on above: Performed By: #### C BC ####[facility] Dyfrahhdrc3563 [place] [phone]. Chrissy Frazier CULTURE URINEon 07-07-2022 CULTURE URINE Culture Observations: NO GROWTH. Normal [facility] Comment on above: Performed By: #### U RCX ####[facility] Ljlyrfohuc9241 [place] [phone]. Chrissy Frazier DRUG SCREEN RAPID (URINE)on 07-07-2022 AMP Negative Normal NEGATIVE [facility] Comment on above: Performed By: #### D RUGRPD ####[facility] Meqqypodud7947 [place] [phone]. Chrissy Frazier BAR Negative Normal NEGATIVE [facility] Comment on above: Performed By: #### D RUGRPD ####[facility] Ajadiwjhvp6049 [place] [phone]. Chrissy Frazier BUP Negative Normal NEGATIVE [facility] Comment on above: Performed By: #### D RUGRPD ####[facility] Ognxebsgsb5231 [place] [phone]. Chrissy Frazier BZO Positive Abnormal NEGATIVE [facility] Comment on above: Performed By: #### D RUGRPD ####[facility] Vauzclnfvs3168 [place] [phone]. Chrissy Frazier LAUREN Negative Normal NEGATIVE [facility] Comment on above: Performed By: #### D RUGRPD ####[facility] Vwqaxcmbpx3722 [place] [phone]. Chrissy Frazier CUT-OFFS SEE BELOW Normal [facility] Comment on above: Result Comment: AMP (Amphetamine): 500ng/mL, BAR (Barbituates): 200 ng/mL, BZO (Benzodiazepines): 150 ng/mL, BUP (Buprenorphine): 10 ng/mL, LAUREN (Cocaine): 150 ng/mL, mAMP (Methamphetamine): 500 ng/mL, MTD (Methadone): 200 ng/mL, OPI (Opiates): 100 ng/mL, OXY (Oxycodone): 100 ng/mL, PCP (Phencyclidine): 25 ng/mL, PPX (Propoxyphene): 300 ng/mL, THC (Cannabinoids): 50 ng/mL, TCA (Trycyclic Antidepressants): 300 ng/mL Performed By: #### D RUGRPD ####[facility] Ztreqzsuad6434[address] [place], [place] [address]Dr. Chrissy Frazier DRUG CUT HEADER DRUG CLASS TEST SYSTEM CUT-OFF CONCENTRATIONS ARE FOLLOWS: Normal [facility] Comment on above: Performed By: #### D RUGRPD ####[facility] Trhlnwksim7[address] [place], [place] [address]Dr. Chrissy Frazier mAMP Negative Normal NEGATIVE [facility] Comment on above: Performed By: #### D RUGRPD ####[facility] Xwexaguovc[address] [place], [place] [address]Dr. Chrissy Frazier MTD Negative Normal NEGATIVE [facility] Comment on above: Performed By: #### D RUGRPD ####[facility] Omgklpejba9[address] [place], [place] [address]Dr. Chrissy Frazier OPI Negative Normal NEGATIVE [facility] Comment on above: Performed By: #### D RUGRPD ####[facility] Nhcbsldaqq9[address] [place], [place] [address]Dr. Chrissy Frazier OXY Negative Normal NEGATIVE [facility] Comment on above: Performed By: #### D RUGRPD ####[facility] Uoodghyuye398[address] [place], [place] [address]Dr. Chrissy Frazier PCP Negative Normal NEGATIVE [facility] Comment on above: Performed By: #### D RUGRPD ####[facility] Pbwfutaerr9256[address] [place], [place] [address]Dr. Chrissy Frazier PPX Negative Normal NEGATIVE [facility] Comment on above: Performed By: #### D RUGRPD ####[facility] Enbalohlzy5855 [place] [address]Dr. Chrissy Frazier TCA Positive Abnormal NEGATIVE [facility] Comment on above: Performed By: #### D RUGRPD ####[facility] Nmslapdftn5381 [place] [address]Dr. Chrissy Frazier THC Positive Abnormal NEGATIVE [facility] Comment on above: Performed By: #### D RUGRPD ####[facility] Hsitclagvk1365 [place] [address]Dr. Chrissy Frazier LIPASEon 07-07-2022 Lipase [Catalytic activity/Vol] 118.0 U/L Normal 73.0-393.0 [facility] Comment on above: Performed By: #### L IPA ####[facility] Kjsoukbfcj05[address] [place], [place] [address]Dr. Chrissy Frazier Lipase [Catalytic activity/Vol] 114.0 U/L Normal 73.0-393.0 [facility] Comment on above: Performed By: #### C MP, TERRENCE, BNP, LIPA ####[facility] Hhdhsnmgdi4180 [place] [address]Dr. Chrissy Frazier PROF 14(COMP METB)on 022 Albumin [Mass/Vol] 3.4 g/dL Normal 3.4-5.0 [facility] Comment on above: Performed By: #### C MP, TERRENCE, BNP, LIPA ####[facility] Llnnjyhmad6633 [place] [address]Dr. Chrissy Frazier Albumin/Globulin [Mass ratio] 1.1 {ratio} Normal [facility] Comment on above: Performed By: #### C MP, TERRENCE, BNP, LIPA ####[facility] Dfalqgbahj0513 [place] [address]Dr. Chrissy Frazier ALP [Catalytic activity/Vol] 68 U/L Normal 46-116 [facility] Comment on above: Performed By: #### C MP, TERRENCE, BNP, LIPA ####[facility] Ridypmmabs4814 [place] [address]Dr. Chrissy Frazier ALT [Catalytic activity/Vol] 93 U/L Critically high 16-63 [facility] Comment on above: Performed By: #### C MP, TERRENCE, BNP, LIPA ####[facility] Ndtxzravld6093 [place] [address]Dr. Chrissy Frazier Anion gap [Moles/Vol] 14.4 mmol/L Normal [facility] Comment on above: Performed By: #### C MP, TERRENCE, BNP, LIPA ####[facility] Vgytdddpkn5[address] [place], [place] [address]Dr. Chrissy Frazier AST [Catalytic activity/Vol] 33 U/L Normal 15-37 [facility] Comment on above: Performed By: #### C MP, TERRENCE, BNP, LIPA ####[facility] Kledlfscrq2265[address] [place], [place] [address]Dr. Chrissy Frazier Bilirubin [Mass/Vol] 0.9 mg/dL Normal 0.2-1.0 [facility] Comment on above: Performed By: #### C MP, TERRENCE, BNP, LIPA ####[facility] Ibfetpsupa8125[address] [place], [place] [address]Dr. Chrissy Frazier Calcium [Mass/Vol] 8.2 mg/dL Critically low 8.5-10.1 [facility] Comment on above: Performed By: #### C MP, TERRENCE, BNP, LIPA ####[facility] Uvxzppdjhs[address] [place], [place] [address]Dr. Chrissy Frazier Chloride [Moles/Vol] 103 mmol/L Normal 98-107 [facility] Comment on above: Performed By: #### C MP, TERRENCE, BNP, LIPA ####[facility] Grvtjkfkpd1526[address] [place], [place] [address]Dr. Chrissy Frazier CO2 [Moles/Vol] 22.9 mmol/L Normal 21.0-32.0 [facility] Comment on above: Performed By: #### C MP, TERRENCE, BNP, LIPA ####[facility] Lnrzsfpmvj0255[address] [place], [place] [address]Dr. Chrissy Frazier Creatinine [Mass/Vol] 1.07 mg/dL Normal 0.70-1.30 [facility] Comment on above: Performed By: #### C MP, TERRENCE, BNP, LIPA ####[facility] Pvhzdixkwu6053 [place] [address]Dr. Chrissy Frazier EGFR-AF MALIAN >60 Normal >=60 [facility] Comment on above: Performed By: #### C MP, TERRENCE, BNP, LIPA ####[facility] Ztbvnklywr2324 [place] [address]Dr. Chrissy Frazier EGFR-NON AF MALIAN >60 Normal >=60 [facility] Comment on above: Performed By: #### C MP, TERRENCE, BNP, LIPA ####[facility] Kwzlafwsxm3472 [place] [address]Dr. Chrissy Frazier Globulin (S) [Mass/Vol] 3.2 g/dL Normal [facility] Comment on above: Performed By: #### C MP, TERRENCE, BNP, LIPA ####[facility] Fqdpvjhpue8032 [place] [address]Dr. Chrissy Frazier Glucose [Mass/Vol] 96 mg/dL Normal 74-106 [facility] Comment on above: Performed By: #### C MP, TERRENCE, BNP, LIPA ####[facility] Vgtjzotpyy9034 [place] [address]Dr. Chrissy Frazier Potassium [Moles/Vol] 3.3 mmol/L Critically low 3.5-5.1 [facility] Comment on above: Performed By: #### C MP, TERRENCE, BNP, LIPA ####[facility] Zanaatsech9656 [place] [address]Dr. Chrissy Frazier Protein [Mass/Vol] 6.6 g/dL Normal 6.4-8.2 [facility] Comment on above: Performed By: #### C MP, TERRENCE, BNP, LIPA ####[facility] Opvguugwhz8728 [place] [address]Dr. Chrissy Frazier Sodium [Moles/Vol] 137 mmol/L Normal 136-145 [facility] Comment on above: Performed By: #### C MP, TERRENCE, BNP, LIPA ####[facility] Wgwbtqbylc7607 [place] [address]Dr. Chrissy Frazier Urea nitrogen [Mass/Vol] 13.0 mg/dL Normal 7.0-18.0 [facility] Comment on above: Performed By: #### C MP, TERRENCE, BNP, LIPA ####[facility] Appxlfdews[address] [place], [place] [address]Dr. Chrissy Frazier Urea nitrogen/Creatinine [Mass ratio] 12.1 mg/mg Normal [facility] Comment on above: Performed By: #### C MP, TERRENCE, BNP, LIPA ####[facility] Hckkkdgwfx54[address] [place], [place] [address]Dr. Chrissy Frazier UA RANDOM W/MICROSCOPICon BACTERIA TRACE Abnormal NONE SEEN [facility] Comment on above: Performed By: #### U AMIC ####[facility] Nhuvabxkxe06[address] [place], [place] [address]Dr. Chrissy Frazier Bilirubin Ql (U) Negative Normal NEGATIVE [facility] Comment on above: Performed By: #### U AMIC ####[facility] Vzjijusvyq39[address] [place], [place] [address]Dr. Chrissy Frazier CAST NONE SEEN Normal NONE SEEN [facility] Comment on above: Performed By: #### U AMIC ####[facility] Wbmjlppwjv4737[address] [place], [place] [address]Dr. Chrissy Frazier Clarity (U) CLEAR Normal CLEAR [facility] Comment on above: Performed By: #### U AMIC ####[facility] Ezgwkixraq4444[address] [place], [place] [address]Dr. Chrissy Frazier Color (U) YELLOW Normal YELLOW [facility] Comment on above: Performed By: #### U AMIC ####[facility] Ujnyhbwzrx3243[address] [place], [place] [address]Dr. Chrissy Frazier Crystals LM Nom (Urine sed) SEEN Abnormal NONE SEEN [facility] Comment on above: Performed By: #### U AMIC ####[facility] Vcduqgcqwy3[address] [place], [place] [address]Dr. Chrissy Frazier Epithelial cells LM Ql (Urine sed) RARE Normal NONE SEEN /RARE [facility] Comment on above: Performed By: #### U AMIC ####[facility] Wzzyhmzojh2098 [place] [address]Dr. Tishrowan Freddie Glucose Ql (U) Negative Normal NEGATIVE [facility] Comment on above: Performed By: #### U AMIC ####[facility] Soehtqfiaf8908 [place] [address]Dr. Chrissy Frazier Hemoglobin Ql (U) Negative Normal NEGATIVE [facility] Comment on above: Performed By: #### U AMIC ####[facility] Craycbthbu4739 [place] [address]Dr. Chrissy Frazier Ketones Ql (U) 15 mg/dl Abnormal NEGATIVE [facility] Comment on above: Performed By: #### U AMIC ####[facility] Alnogmoxgy7072[address] [place], [place] [address]Dr. Chrissy Frazier LEUKOCYTES Negative Normal NEGATIVE [facility] Comment on above: Performed By: #### U AMIC ####[facility] Uulawiakfl01[address] [place], [place] [address]Dr. Chrissy Freddie MUCOUS NONE SEEN Normal NONE SEEN [facility] Comment on above: Performed By: #### U AMIC ####[facility] Stdnqtmzff1468 [place] [address]Dr. Chrissy Frazier Nitrite Ql (U) Negative Normal NEGATIVE [facility] Comment on above: Performed By: #### U AMIC ####[facility] Paggmroykw5890 [place] [address]Dr. Chrissy Frazier pH (U) 6.0 [pH] Normal 5-9 [facility] Comment on above: Performed By: #### U AMIC ####[facility] Gmdvmoekac8534[address] [place], [place] [address]Dr. Chrissy Frazier RBC 0-2 Normal 0-2 [facility] Comment on above: Performed By: #### U AMIC ####[facility] Mtfwbbqggn[address] [place], [place] [address]Dr. Chrissy Frazier SPEC GRAVITY 1.015 Normal 1.005-<=1.025 [facility] Comment on above: Performed By: #### U AMIC ####[facility] Cnmbxvrord4833 [place] [address]Dr. Chrissy Frazier UA PROTEIN Negative Normal NEGATIVE/ TRACE [facility] Comment on above: Performed By: #### U AMIC ####[facility] Drkjpfwwtt8535 [place] [address]Dr. Chrissy Frazier URIC ACID CRYSTALS RARE Normal [facility] Comment on above: Performed By: #### U AMIC ####[facility] Czupfqcxlx1026 [place] [address]Dr. Chrissy Frazier Urobilinogen Qn (U) 0.2 {Estrellita'U}/dL Normal 0.2 - 1. 0 [facility] Comment on above: Performed By: #### U AMIC ####[facility] Usbdnyegjn50[address] [place], [place] [address]Dr. Chrissy Frazier WBC 0-2 Abnormal NONE SEEN [facility] Comment on above: Performed By: #### U AMIC ####[facility] Sclnhjaoun0174 [place] [address]Dr. Tishrowan Frazier AMYLASEon 07-06-2022 Amylase [Catalytic activity/Vol] 37 U/L Normal 25-115 [facility] Comment on above: Performed By: #### C MP, LIPA, TERRENCE ####[facility] Loesxqedpd2513[address] [place], [place] [address]Dr. Chrissy Frazier CBC AUTO DIFFon 07-06-2022 BASO # 0.1 103/ul Normal 0.0-0.1 [facility] Comment on above: Performed By: #### C BC ####[facility] Yrebsvgiof[address] [place], [place] [address]Dr. Chrissy Frazier Basophils/100 WBC (Bld) 0.4 % Normal 0.2-2.0 [facility] Comment on above: Performed By: #### C BC ####[facility] Ytvhmukdij1393[address] [place], [place] [address]Dr. Chrissy Frazier EO # 0.1 103/ul Normal 0.0-0.7 [facility] Comment on above: Performed By: #### C BC ####[facility] Kuctfwumts3813 [place] [address]Dr. Chrissy Frazier Eosinophils/100 WBC (Bld) 0.5 % Critically low 0.9-7.0 [facility] Comment on above: Performed By: #### C BC ####[facility] Rnrfoqelgt5249 [place] [address]Dr. Chrissy Freddie Erythrocyte distribution width (RBC) [Ratio] 13.6 % Normal 11.0-15.0 [facility] Comment on above: Performed By: #### C BC ####[facility] Gepjxxcrmm[address] [place], [place] [address]Dr. Chrissy Frazier Hematocrit (Bld) [Volume fraction] 47.9 % Normal 42.0-54.0 [facility] Comment on above: Performed By: #### C BC ####[facility] Pwfjtyrnoa[address] [place], [place] [address]Dr. Chrissy Freddie Hemoglobin (Bld) [Mass/Vol] 16.4 g/dL Normal 14.0-18.0 [facility] Comment on above: Performed By: #### C BC ####[facility] Swhatevsef5[address] [place], [place] [address]Dr. Chrissy Frazier IG # 0.09 10e3/ul Critically high 0.00-0.03 [facility] Comment on above: Performed By: #### C BC ####[facility] Txaakytcdy[address] [place], [place] [address]Dr. Chrissy Freddie IG % 0.6 % Critically high 0.0-0.5 [facility] Comment on above: Performed By: #### C BC ####[facility] Mgekccgqfi0816[address] [place], [place] [address]DrNancy Frazier LYMPH # 2.5 103/ul Normal 1.2-3.8 [facility] Comment on above: Performed By: #### C BC ####[facility] Orwsitgjdt6836[address] [place], [place] [address]Dr. Chrissy Frazier Lymphocytes/100 WBC (Bld) 16.7 % Critically low 20.5-60.0 [facility] Comment on above: Performed By: #### C BC ####[facility] Kzubahhfcj0379 [place] [address]DrNancy Frazier MANUAL DIFF REQ NO Normal [facility] Comment on above: Performed By: #### C BC ####[facility] Lptunbqqyd7341 [place] [address]DrNancy Frazier MCH (RBC) [Entitic mass] 28.1 pg Normal 25.9-34.0 [facility] Comment on above: Performed By: #### C BC ####[facility] Mssbpaaqdm00[address] [place], [place] [address]DrNancy Frazier MCHC (RBC) [Mass/Vol] 34.2 g/dL Normal 29.9-35.2 [facility] Comment on above: Performed By: #### C BC ####[facility] Kgazpizuhn0[address] [place], [place] [address]DrNancy Frazier MCV (RBC) [Entitic vol] 82.2 fL Normal 80.0-94.0 [facility] Comment on above: Performed By: #### C BC ####[facility] Glsxuxscxf[address] [place], [place] [address]DrNancy Frazier MONO # 1.0 103/ul Critically high 0.3-0.8 [facility] Comment on above: Performed By: #### C BC ####[facility] Ffouatwcgv[address] [place], [place] [address]DrNancy Frazier Monocytes/100 WBC (Bld) 6.7 % Normal 1.7-12.0 [facility] Comment on above: Performed By: #### C BC ####[facility] Xqvgjgezsx01[address] [place], [place] [address]DrNancy Frazier NEUT # 11.3 103/ul Critically high 1.4-6.5 [facility] Comment on above: Performed By: #### C BC ####[facility] Xktrlqviqz6894[address] [place], [place] [address]DrNancy Frazier Neutrophils/100 WBC (Bld) 75.1 % Critically high 43.0-75.0 [facility] Comment on above: Performed By: #### C BC ####[facility] Ufdpwyusxk6789 [place] [address]Dr. Chrissy Frazier Platelet mean volume (Bld) [Entitic vol] 10.6 fL Normal 9.5-13.5 [facility] Comment on above: Performed By: #### C BC ####[facility] Obvkddxkwd0183 [place] [address]Dr. Chrissy Frazier PLT 416 103/ul Normal 150-450 [facility] Comment on above: Performed By: #### C BC ####[facility] Zfmlwdtbgg2226 [place] [address]Dr. Chrissy Frazier RBC 5.83 106/ul Normal 4.70-6.10 [facility] Comment on above: Performed By: #### C BC ####[facility] Gmwnywfdqp7221 [place] [address]Dr. Chrissy Frazier WBC 15.0 103/ul Critically high 4.0-11.0 [facility] Comment on above: Performed By: #### C BC ####[facility] Mxbepdaljm5765 [place] [address]Dr. Chrissy Frazier [facility]21 SARS-CoV-2 (COVID-19) RNA RHIANNON+probe Ql (Unsp spec) Not detected Normal NOT DETECTED [facility] Comment on above: Result Comment: When diagnostic testing is negative, the possibility of a false negative should be considered inthe context of a patient's recent exposures and the presence of clinical signs and symptomsconsistent with SARS-CoV-2.This test is not yet approved or cleared by the [place] FDA. When there are no FDA-approved or cleared tests available, and other criteria are met, FDA can make tests available under an emergency access mechanism called an Emergency Use Authorization (EUA). The EUA for this test is supported by the [place] of Health and Human Service's declaration that circumstances exist to justify the emergency use of in vitro diagnostics for the detection and/or diagnosis of the virus that causes COVID-19. This EUA will remain in effect for the duration of the COVID-19 declaration justifying emergency of IVDs, unless it is terminated or revoked by the FDA (after which the test may no longer be used). Performed By: #### C VDTBH ####[facility] Wxflpakbpy40[address] [place] [address]Dr. Chrissy Frazier LIPASEon 07-06-2022 Lipase [Catalytic activity/Vol] 130.0 U/L Normal 73.0-393.0 [facility] Comment on above: Performed By: #### C MP LIPA, TERRENCE ####[facility] Jsldquwrrm5335 [place] [address]Dr. Chrissy Frazier PROF 14(COMP METB)on 022 Albumin [Mass/Vol] 4.4 g/dL Normal 3.4-5.0 [facility] Comment on above: Performed By: #### C MP LIPA, TERRENCE ####[facility] Fddirxropp8987 [place] [address]Dr. Chrissy Frazier Albumin/Globulin [Mass ratio] 1.1 {ratio} Normal [facility] Comment on above: Performed By: #### C MP LIPA, TERRENCE ####[facility] Mkxctnuynw[address] [place], [place] [address]Dr. Chrissy Frazier ALP [Catalytic activity/Vol] 83 U/L Normal 46-116 [facility] Comment on above: Performed By: #### C MP, LIPA, TERRENCE ####[facility] Hefxpgeidj9092 [place] [address]Dr. Chrissy Frazier ALT [Catalytic activity/Vol] 107 U/L Critically high 16-63 [facility] Comment on above: Performed By: #### C MP, LIPA, TERRENCE ####[facility] Pzaoicdepl2518 [place] [address]DrNancy Frazier Anion gap [Moles/Vol] 20.5 mmol/L Normal [facility] Comment on above: Performed By: #### C MP, LIPA, TERRENCE ####[facility] Tyaesvyukn9390 [place] [address]Dr. Chrissy Frazier AST [Catalytic activity/Vol] 46 U/L Critically high 15-37 [facility] Comment on above: Performed By: #### C OSWALD ADAIR, TERRENCE ####[facility] Pobdodzkga6058 [place] [address]Dr. Chrissy Frazier Bilirubin [Mass/Vol] 1.2 mg/dL Critically high 0.2-1.0 [facility] Comment on above: Performed By: #### C OSWALD ADAIR, TERRENCE ####[facility] Cqeyyuphoi[address] [place], [place] [address]Dr. Chrissy Frazier Calcium [Mass/Vol] 9.1 mg/dL Normal 8.5-10.1 [facility] Comment on above: Performed By: #### C OSWALD ADAIR, TERRENCE ####[facility] Xzmzaxxlpw[address] [place], [place] [address]Dr. Chrissy Frazier Chloride [Moles/Vol] 100 mmol/L Normal 98-107 [facility] Comment on above: Performed By: #### C OSWALD ADAIR, TERRENCE ####[facility] Wibrdzlaaf[address] [place], [place] [address]Dr. Chrissy Frazier CO2 [Moles/Vol] 18.6 mmol/L Critically low 21.0-32.0 [facility] Comment on above: Performed By: #### C OSWALD ADAIR, TERRENCE ####[facility] Hpvnprzubx400[address] [place], [place] [address]Dr. Chrissy Frazier Creatinine [Mass/Vol] 1.44 mg/dL Critically high 0.70-1.30 [facility] Comment on above: Performed By: #### C OSWALD ADAIR, TERRENCE ####[facility] Thjibrzbji[address] [place], [place] [address]Dr. Chrissy Frazier EGFR-AF MALIAN >60 Normal >=60 [facility] Comment on above: Performed By: #### C TESSA ADAIRA, TERRENCE ####[facility] Mxydrtlubj7[address] [place], [place] [address]Dr. Chrissy Frazier EGFR-NON AF MALIAN 57 mL/min/1.73m2 Critically low >=60 [facility] Comment on above: Performed By: #### C TESSA ADAIRA, TERRENCE ####[facility] Nedoedjbux9265 [place] [address]Dr. Chrissy Frazier Globulin (S) [Mass/Vol] 4.0 g/dL Normal [facility] Comment on above: Performed By: #### C MANA LIPA, TERRENCE ####[facility] Pnrkhmkbej2813 [place] [address]Dr. Chrissy Frazier Glucose [Mass/Vol] 117 mg/dL Critically high 74-106 [facility] Comment on above: Performed By: #### C MANA LIPA, TERRENCE ####[facility] Mfqfwozvna09[address] [place], [place] [address]Dr. Chrissy Frazier Potassium [Moles/Vol] 3.1 mmol/L Critically low 3.5-5.1 [facility] Comment on above: Performed By: #### C MANA LIPA, TERRENCE ####[facility] Phhkbhlhxi8[address] [place], [place] [address]Dr. Chrissy Frazier Protein [Mass/Vol] 8.4 g/dL Critically high 6.4-8.2 [facility] Comment on above: Performed By: #### C MANA LIPA, TERRENCE ####[facility] Uttgvxgein66[address] [place], [place] [address]Dr. Chrissy Frazier Sodium [Moles/Vol] 136 mmol/L Normal 136-145 [facility] Comment on above: Performed By: #### C MANA LIPA, TERRENCE ####[facility] Nvrdvbfcgg[address] [place], [place] [address]Dr. Chrissy Frazier Urea nitrogen [Mass/Vol] 15.0 mg/dL Normal 7.0-18.0 [facility] Comment on above: Performed By: #### C MANA LIPA, TERRENCE ####[facility] Cdzvwoqalp454[address] [place], [place] [address]Dr. Chrissy Frazier Urea nitrogen/Creatinine [Mass ratio] 10.4 mg/mg Normal [facility] Comment on above: Performed By: #### C MANA LIPA, TERRENCE ####[facility] Echjbmpbsa8574[address] [place], [place] [address]Dr. Chrissy Frazier CBC AUTO DIFFon 07-05-2022 BASO # 0.0 103/ul Normal 0.0-0.1 [facility] Comment on above: Performed By: #### C BC ####[facility] Rxwvxeekqq0863 [place] [phone]. Chrissy Frazier Basophils/100 WBC (Bld) 0.3 % Normal 0.2-2.0 [facility] Comment on above: Performed By: #### C BC ####[facility] Agicbryamg9809 [place] [phone]. Chrissy Freddie EO # 0.2 103/ul Normal 0.0-0.7 [facility] Comment on above: Performed By: #### C BC ####[facility] Jrdhocbrkx3565 [place] [address]Dr. Chrissy Freddie Eosinophils/100 WBC (Bld) 1.5 % Normal 0.9-7.0 [facility] Comment on above: Performed By: #### C BC ####[facility] Eyxlcwpolw0206 [place] [address]Dr. Chrissy Frazier Erythrocyte distribution width (RBC) [Ratio] 13.9 % Normal 11.0-15.0 [facility] Comment on above: Performed By: #### C BC ####[facility] Jwtlmizawm6397 [place] [phone]. Chrissy Frazier Hematocrit (Bld) [Volume fraction] 44.5 % Normal 42.0-54.0 [facility] Comment on above: Performed By: #### C BC ####[facility] Thhzexxkzk9866 [place] [phone]. Chrissy Frazier Hemoglobin (Bld) [Mass/Vol] 14.8 g/dL Normal 14.0-18.0 [facility] Comment on above: Performed By: #### C BC ####[facility] Igprqtwsjo9825 [place] [phone]. Tishrowan Freddie IG # 0.05 10e3/ul Critically high 0.00-0.03 [facility] Comment on above: Performed By: #### C BC ####[facility] Uciutrrcjj4503 [place], [place] [address]Uy. Chrissy Frazier IG % 0.4 % Normal 0.0-0.5 [facility] Comment on above: Performed By: #### C BC ####[facility] Lgjewtjncg4604 [place], [place] [address]Fh. Chrissy Frazier LYMPH # 3.3 103/ul Normal 1.2-3.8 [facility] Comment on above: Performed By: #### C BC ####[facility] Dskxgfsdty4233 [place] [phone]. Chrissy Frazier Lymphocytes/100 WBC (Bld) 29.1 % Normal 20.5-60.0 [facility] Comment on above: Performed By: #### C BC ####[facility] Hyaterylxm4213 [place] [phone]. Chrissy Frazier MANUAL DIFF REQ NO Normal [facility] Comment on above: Performed By: #### C BC ####[facility] Qekhnhmane3861 [place] [phone]. Chrissy Frazier MCH (RBC) [Entitic mass] 28.2 pg Normal 25.9-34.0 [facility] Comment on above: Performed By: #### C BC ####[facility] Xnthmjwpki5512 [place] [phone]. Chrissy Frazier MCHC (RBC) [Mass/Vol] 33.3 g/dL Normal 29.9-35.2 [facility] Comment on above: Performed By: #### C BC ####[facility] Nrjshoqzwo6833 [place] [phone]. Chrissy Frazier MCV (RBC) [Entitic vol] 84.9 fL Normal 80.0-94.0 [facility] Comment on above: Performed By: #### C BC ####[facility] Gkvbvryuui8896 [place] [phone]. Chrissy Frazier MONO # 0.6 103/ul Normal 0.3-0.8 [facility] Comment on above: Performed By: #### C BC ####[facility] Rwpsvakjuf2240 [place] [phone]. Chrissy Frazier Monocytes/100 WBC (Bld) 5.4 % Normal 1.7-12.0 [facility] Comment on above: Performed By: #### C BC ####[facility] Ajmbpsursc6069 [place] [phone]. Chrissy Frazier NEUT # 7.1 103/ul Critically high 1.4-6.5 [facility] Comment on above: Performed By: #### C BC ####[facility] Kygoqetgcy8848 [place] [phone]. Chrissy Frazier Neutrophils/100 WBC (Bld) 63.3 % Normal 43.0-75.0 [facility] Comment on above: Performed By: #### C BC ####[facility] Nygpkswoup5340 [place] [address]Dr. Chrissy Frazier Platelet mean volume (Bld) [Entitic vol] 9.9 fL Normal 9.5-13.5 [facility] Comment on above: Performed By: #### C BC ####[facility] Eixbnbrmjy6165 [place] [phone]. Chrissy Frazier PLT 339 103/ul Normal 150-450 [facility] Comment on above: Performed By: #### C BC ####[facility] Xzfphgvoit3994 [place] [phone]. Chrissy Frazier RBC 5.24 106/ul Normal 4.70-6.10 [facility] Comment on above: Performed By: #### C BC ####[facility] Wnrpuqrlrw4772 [place] [phone]. Chrissy Frazier WBC 11.2 103/ul Critically high 4.0-11.0 [facility] Comment on above: Performed By: #### C BC ####[facility] Bhoxiqpued6972 [place] [address]Dr. Chrissy Frazier PROF 14(COMP METB)on 022 Albumin [Mass/Vol] 3.8 g/dL Normal 3.4-5.0 [facility] Comment on above: Performed By: #### C MP ####[facility] Alrgqkbule2609 [place] [phone]. Chrissy Frazier Albumin/Globulin [Mass ratio] 1.1 {ratio} Normal [facility] Comment on above: Performed By: #### C MP ####[facility] Hoepfvadqj9117 [place] [phone]. Chrissy Frazier ALP [Catalytic activity/Vol] 67 U/L Normal 46-116 [facility] Comment on above: Performed By: #### C MP ####[facility] Qawgqewawi5658 [place] [address]Dr. Chrissy Freddie ALT [Catalytic activity/Vol] 75 U/L Critically high 16-63 [facility] Comment on above: Performed By: #### C MP ####[facility] Bgcxkmnhou7138[address] [place], [place] [address]Dr. Chrissy Freddie Anion gap [Moles/Vol] 14.3 mmol/L Normal [facility] Comment on above: Performed By: #### C MP ####[facility] Zxgnxmjczz6519[address] [place], [place] [address]Dr. Chrissy Freddie AST [Catalytic activity/Vol] 40 U/L Critically high 15-37 [facility] Comment on above: Performed By: #### C MP ####[facility] Csmmopknni3962[address] [place], [place] [address]Dr. Chrissy Freddie Bilirubin [Mass/Vol] 0.9 mg/dL Normal 0.2-1.0 [facility] Comment on above: Performed By: #### C MP ####[facility] Rgxajylvlt5129 [place] [address]Dr. Chrissy Freddie Calcium [Mass/Vol] 8.4 mg/dL Critically low 8.5-10.1 [facility] Comment on above: Performed By: #### C MP ####[facility] Sawdwnsrra70[address] [place], [place] [address]Dr. Chrissy Frazier Chloride [Moles/Vol] 104 mmol/L Normal 98-107 [facility] Comment on above: Performed By: #### C MP ####[facility] Inecylmmci1186 [place] [address]Dr. Chrissy Frazier CO2 [Moles/Vol] 24.1 mmol/L Normal 21.0-32.0 [facility] Comment on above: Performed By: #### C MP ####[facility] Shndbewtjv1582 [place] [address]Dr. Chrissy Frazier Creatinine [Mass/Vol] 1.11 mg/dL Normal 0.70-1.30 [facility] Comment on above: Performed By: #### C MP ####[facility] Wfrddqhwmp9[address] [place], [place] [address]Dr. Chrissy Freddie EGFR-AF MALIAN >60 Normal >=60 [facility] Comment on above: Performed By: #### C MP ####[facility] Ygtvdloqgh036[address] [place], [place] [address]Dr. Chrissy Frazier EGFR-NON AF MALIAN >60 Normal >=60 [facility] Comment on above: Performed By: #### C MP ####[facility] Aexybzhgue9[address] [place], [place] [address]Dr. Chrissy Frazier Globulin (S) [Mass/Vol] 3.6 g/dL Normal [facility] Comment on above: Performed By: #### C MP ####[facility] Germbwqgdp802[address] [place], [place] [address]Dr. Chrissy Frazier Glucose [Mass/Vol] 89 mg/dL Normal 74-106 [facility] Comment on above: Performed By: #### C MP ####[facility] Jfauyintmv0743[address] [place], [place] [address]Dr. Chrissy Frazier Potassium [Moles/Vol] 3.4 mmol/L Critically low 3.5-5.1 [facility] Comment on above: Performed By: #### C MP ####[facility] Tdttonvjql1636[address] [place], [place] [address]Dr. Chrissy Frazier Protein [Mass/Vol] 7.4 g/dL Normal 6.4-8.2 [facility] Comment on above: Performed By: #### C MP ####[facility] Yxoayirbll7847[address] [place], [place] [address]Dr. Chrissy Frazier Sodium [Moles/Vol] 139 mmol/L Normal 136-145 [facility] Comment on above: Performed By: #### C MP ####[facility] Kqvafpmemj1636[address] [place], [place] [address]Dr. Chrissy Frazier Urea nitrogen [Mass/Vol] 10.0 mg/dL Normal 7.0-18.0 [facility] Comment on above: Performed By: #### C MP ####[facility] Aoymzuzbrq2067[address] [place], [place] [address]Dr. Chrissy Freddie Urea nitrogen/Creatinine [Mass ratio] 9.0 mg/mg Normal [facility] Comment on above: Performed By: #### C MP ####[facility] Stqdmbputt[address] [place], [place] [address]Dr. Chrissy Frazier CBC AUTO DIFFon 07-04-2022 BASO # 0.0 103/ul Normal 0.0-0.1 [facility] Comment on above: Performed By: #### C BC ####[facility] Baxsijjkns6699[address] [place], [place] [address]Dr. Chrissy Freddie Basophils/100 WBC (Bld) 0.2 % Normal 0.2-2.0 [facility] Comment on above: Performed By: #### C BC ####[facility] Lqgnzeynue[address] [place], [place] [address]Dr. Chrissy Frazier EO # 0.0 103/ul Normal 0.0-0.7 [facility] Comment on above: Performed By: #### C BC ####[facility] Prxkpdmvbh2547[address] [place], [place] [address]Dr. Chrissy Freddie Eosinophils/100 WBC (Bld) 0.3 % Critically low 0.9-7.0 [facility] Comment on above: Performed By: #### C BC ####[facility] Blubnziwvo05[address] [place], [place] [address]Dr. Chrissy Frazier Erythrocyte distribution width (RBC) [Ratio] 14.0 % Normal 11.0-15.0 [facility] Comment on above: Performed By: #### C BC ####[facility] Ykfqdskwxo[address] [place], [place] [address]Dr. Chrissy Frazier Hematocrit (Bld) [Volume fraction] 43.2 % Normal 42.0-54.0 [facility] Comment on above: Performed By: #### C BC ####[facility] Fjuzirhdvt7767 [place] [address]Dr. Chrissy Frazier Hemoglobin (Bld) [Mass/Vol] 14.6 g/dL Normal 14.0-18.0 [facility] Comment on above: Performed By: #### C BC ####[facility] Ttiepruldp8071 [place] [address]Dr. Chrissy Freddie IG # 0.11 10e3/ul Critically high 0.00-0.03 [facility] Comment on above: Performed By: #### C BC ####[facility] Loqsxvfhdy2280 [place] [address]Dr. Tishrowan Frazier IG % 0.8 % Critically high 0.0-0.5 [facility] Comment on above: Performed By: #### C BC ####[facility] Icbrbphlld0248 [place] [address]Dr. Chrissy Freddie LYMPH # 2.6 103/ul Normal 1.2-3.8 [facility] Comment on above: Performed By: #### C BC ####[facility] Hobsmhxzdx1468 [place] [address]Dr. Chrissy Freddie Lymphocytes/100 WBC (Bld) 18.3 % Critically low 20.5-60.0 [facility] Comment on above: Performed By: #### C BC ####[facility] Mnnuypjsqs8235 [place] [address]DrNancy Tishrowan Frazier MANUAL DIFF REQ NO Normal [facility] Comment on above: Performed By: #### C BC ####[facility] Narbvulzpj4538 [place] [address]DrNancy Chrissy Freddie MCH (RBC) [Entitic mass] 28.1 pg Normal 25.9-34.0 [facility] Comment on above: Performed By: #### C BC ####[facility] Votxmyrpdc06[address] [place], [place] [address]Dr. Chrissy Frazier MCHC (RBC) [Mass/Vol] 33.8 g/dL Normal 29.9-35.2 [facility] Comment on above: Performed By: #### C BC ####[facility] Nfdbhivnqr8217 [place] [phone]. Chrissy Frazier MCV (RBC) [Entitic vol] 83.2 fL Normal 80.0-94.0 [facility] Comment on above: Performed By: #### C BC ####[facility] Lyyksbwtki8335 [place] [phone]. Chrissy Freddie MONO # 0.7 103/ul Normal 0.3-0.8 [facility] Comment on above: Performed By: #### C BC ####[facility] Mmnmleewtq4518 [place] [address]Dr. Chrissy Frazier Monocytes/100 WBC (Bld) 5.3 % Normal 1.7-12.0 [facility] Comment on above: Performed By: #### C BC ####[facility] Bosnmtwxzn1550 [place] [phone]. Chrissy Freddie NEUT # 10.5 103/ul Critically high 1.4-6.5 [facility] Comment on above: Performed By: #### C BC ####[facility] Rsvsltrizj5719 [place] [address]Dr. Chrissy Freddie Neutrophils/100 WBC (Bld) 75.1 % Critically high 43.0-75.0 [facility] Comment on above: Performed By: #### C BC ####[facility] Mjcsnbkuky2820 [place] [phone]. Chrissy Freddie Platelet mean volume (Bld) [Entitic vol] 10.6 fL Normal 9.5-13.5 [facility] Comment on above: Performed By: #### C BC ####[facility] Gshlqrnrna7234 [place] [address]Dr. Tishrowan Freddie PLT 309 103/ul Normal 150-450 [facility] Comment on above: Performed By: #### C BC ####[facility] Qvchbxkglx0684 [place] [address]Dr. Chrissy Frazier RBC 5.19 106/ul Normal 4.70-6.10 [facility] Comment on above: Performed By: #### C BC ####[facility] Trowwpiiky7483 [place] [address]Dr. Chrissy Frazier WBC 14.0 103/ul Critically high 4.0-11.0 [facility] Comment on above: Performed By: #### C BC ####[facility] Axhaazdqpo3974 [place] [address]Dr. Chrissy Frazier PROF 14(COMP METB)on 022 Albumin [Mass/Vol] 4.0 g/dL Normal 3.4-5.0 [facility] Comment on above: Performed By: #### C MP ####[facility] Fulkwvtoil[address] [place], [place] [address]Dr. Chrissy Frazier Albumin/Globulin [Mass ratio] 1.1 {ratio} Normal [facility] Comment on above: Performed By: #### C MP ####[facility] Xpxhwndjzp7709[address] [place], [place] [address]Dr. Chrissy Frazier ALP [Catalytic activity/Vol] 67 U/L Normal 46-116 [facility] Comment on above: Performed By: #### C MP ####[facility] Eszzeiidnn36[address] [place], [place] [address]Dr. Chrissy Frazier ALT [Catalytic activity/Vol] 40 U/L Normal 16-63 [facility] Comment on above: Performed By: #### C MP ####[facility] Fzbwujnjgr9573[address] [place], [place] [address]Dr. Chrissy Frazier Anion gap [Moles/Vol] 17.7 mmol/L Normal [facility] Comment on above: Performed By: #### C MP ####[facility] Bhdehjnqkn5648[address] [place], [place] [address]Dr. Chrissy Frazier AST [Catalytic activity/Vol] 27 U/L Normal 15-37 [facility] Comment on above: Performed By: #### C MP ####[facility] Faenabafkg[address] [place], [place] [address]Dr. Chrissy Frazier Bilirubin [Mass/Vol] 0.8 mg/dL Normal 0.2-1.0 [facility] Comment on above: Performed By: #### C MP ####[facility] Urisupqzku2623[address] [place], [place] [address]Dr. Chrissy Frazier Calcium [Mass/Vol] 8.8 mg/dL Normal 8.5-10.1 [facility] Comment on above: Performed By: #### C MP ####[facility] Ickencoahj3626[address] [place], [place] [address]Dr. Chrissy Frazier Chloride [Moles/Vol] 105 mmol/L Normal 98-107 [facility] Comment on above: Performed By: #### C MP ####[facility] Baoehtaate24[address] [place], [place] [address]Dr. Chrissy Frazier CO2 [Moles/Vol] 16.5 mmol/L Critically low 21.0-32.0 [facility] Comment on above: Performed By: #### C MP ####[facility] Ewybseeita[address] [place], [place] [address]Dr. Chrissy Frazier Creatinine [Mass/Vol] 1.02 mg/dL Normal 0.70-1.30 [facility] Comment on above: Performed By: #### C MP ####[facility] Lfffpayomj9[address] [place], [place] [address]Dr. Chrissy Frazier EGFR-AF MALIAN >60 Normal >=60 [facility] Comment on above: Performed By: #### C MP ####[facility] Odmkximzdf0224[address] [place], [place] [address]Dr. Chrissy Frazier EGFR-NON AF MALIAN >60 Normal >=60 [facility] Comment on above: Performed By: #### C MP ####[facility] Ldiffkcuql3936[address] [place], [place] [address]Dr. Chrissy Frazier Globulin (S) [Mass/Vol] 3.7 g/dL Normal [facility] Comment on above: Performed By: #### C MP ####[facility] Kdrranpnkq6293[address] [place], [place] [address]Dr. Chrissy Frazier Glucose [Mass/Vol] 106 mg/dL Normal 74-106 [facility] Comment on above: Performed By: #### C MP ####[facility] Yizsnxrioe6289 [place] [address]Dr. Chrissy Frazier Potassium [Moles/Vol] 3.2 mmol/L Critically low 3.5-5.1 [facility] Comment on above: Performed By: #### C MP ####[facility] Gzfzfelmgm8896[address] [place], [place] [address]Dr. Chrissy Frazier Protein [Mass/Vol] 7.7 g/dL Normal 6.4-8.2 [facility] Comment on above: Performed By: #### C MP ####[facility] Hfjybsziqc4039[address] [place], [place] [address]Dr. Chrissy Frazier Sodium [Moles/Vol] 136 mmol/L Normal 136-145 [facility] Comment on above: Performed By: #### C MP ####[facility] Epjgzchhvr07[address] [place], [place] [address]Dr. Chrissy Frazier Urea nitrogen [Mass/Vol] 10.0 mg/dL Normal 7.0-18.0 [facility] Comment on above: Performed By: #### C MP ####[facility] Tsrrvaifby0[address] [place], [place] [address]Dr. Chrissy Frazier Urea nitrogen/Creatinine [Mass ratio] 9.8 mg/mg Normal [facility] Comment on above: Performed By: #### C MP ####[facility] Cwspgagvcb[address] [place], [place] [address]Dr. Chrissy Frazier CBC AUTO DIFFon 07-03-2022 BASO # 0.1 103/ul Normal 0.0-0.1 [facility] Comment on above: Performed By: #### C BC ####[facility] Dgpvjfztgz300617 [address] [place], [place] [address]Dr. Chrissy Frazier Basophils/100 WBC (Bld) 0.5 % Normal 0.2-2.0 [facility] Comment on above: Performed By: #### C BC ####[facility] Spxogwjfzr48[address] [place], [place] [address]Dr. Chrissy Frazier EO # 0.1 103/ul Normal 0.0-0.7 [facility] Comment on above: Performed By: #### C BC ####[facility] Svzibwufod[address] [place] [address]Dr. Chrissy Freddie Eosinophils/100 WBC (Bld) 1.3 % Normal 0.9-7.0 [facility] Comment on above: Performed By: #### C BC ####[facility] Bbctmaprix6928[address] [place], [place] [address]Dr. Chrissy Frazier Erythrocyte distribution width (RBC) [Ratio] 14.2 % Normal 11.0-15.0 [facility] Comment on above: Performed By: #### C BC ####[facility] Tacbwlnksq1852[address] [place], [place] [address]Dr. Tishrowan Frazier Hematocrit (Bld) [Volume fraction] 41.7 % Critically low 42.0-54.0 [facility] Comment on above: Performed By: #### C BC ####[facility] Cosmreyfgd7[address] [place], [place] [address]Dr. Chrissy Frazier Hemoglobin (Bld) [Mass/Vol] 13.6 g/dL Critically low 14.0-18.0 [facility] Comment on above: Performed By: #### C BC ####[facility] Nbissxodry[address] [place], [place] [address]Dr. Chrissy Frazier IG # 0.04 10e3/ul Critically high 0.00-0.03 [facility] Comment on above: Performed By: #### C BC ####[facility] Kgsaanuixb2905[address] [place], [place] [address]Dr. Chrissy Frazier IG % 0.4 % Normal 0.0-0.5 [facility] Comment on above: Performed By: #### C BC ####[facility] Vhtkzzhsbj1982[address] [place], [place] [address]Dr. Chrissy Frazier LYMPH # 3.5 103/ul Normal 1.2-3.8 [facility] Comment on above: Performed By: #### C BC ####[facility] Fcqwelutbk9294[address] [place], [place] [address]Dr. Chrissy Frazier Lymphocytes/100 WBC (Bld) 33.5 % Normal 20.5-60.0 [facility] Comment on above: Performed By: #### C BC ####[facility] Fyccngycqo63[address] [place] [address]DrNancy Frazier MANUAL DIFF REQ NO Normal [facility] Comment on above: Performed By: #### C BC ####[facility] Ufxvhrcmrh5647 [place] [address]DrNancy Frazier MCH (RBC) [Entitic mass] 27.9 pg Normal 25.9-34.0 [facility] Comment on above: Performed By: #### C BC ####[facility] Gfbwdfzauh5253[address] [place], [place] [address]DrNancy Frazier MCHC (RBC) [Mass/Vol] 32.6 g/dL Normal 29.9-35.2 [facility] Comment on above: Performed By: #### C BC ####[facility] Ijujhyfeyu8[address] [place], [place] [address]DrNancy Frazier MCV (RBC) [Entitic vol] 85.6 fL Normal 80.0-94.0 [facility] Comment on above: Performed By: #### C BC ####[facility] Jwirsgldbv3083[address] [place], [place] [address]DrNancy Frazier MONO # 0.7 103/ul Normal 0.3-0.8 [facility] Comment on above: Performed By: #### C BC ####[facility] Mzqpmonnvy4237[address] [place], [place] [address]DrNancy Frazier Monocytes/100 WBC (Bld) 6.5 % Normal 1.7-12.0 [facility] Comment on above: Performed By: #### C BC ####[facility] Hemgrvolha[address] [place], [place] [address]DrNancy Frazier NEUT # 6.1 103/ul Normal 1.4-6.5 [facility] Comment on above: Performed By: #### C BC ####[facility] Lnyrvgkodt588[address] [place], [place] [address]Dr. Chrissy Frazier Neutrophils/100 WBC (Bld) 57.8 % Normal 43.0-75.0 [facility] Comment on above: Performed By: #### C BC ####[facility] Azoeoqcscj3[address] [place] [address]DrNancy Frazier Platelet mean volume (Bld) [Entitic vol] 10.4 fL Normal 9.5-13.5 [facility] Comment on above: Performed By: #### C BC ####[facility] Pxjlqerfcs0477[address] [place], [place] [address]DrNancy Frazier PLT 288 103/ul Normal 150-450 [facility] Comment on above: Performed By: #### C BC ####[facility] Bfihlaerij9948[address] [place], [place] [address]DrNancy Frazier RBC 4.87 106/ul Normal 4.70-6.10 [facility] Comment on above: Performed By: #### C BC ####[facility] Tuhegadhhp6005[address] [place], [place] [address]DrNancy Frazier WBC 10.5 103/ul Normal 4.0-11.0 [facility] Comment on above: Performed By: #### C BC ####[facility] Lphzvacdwo7689[address] [place], [place] [address]Dr. Chrissy Frazier PROF 14(COMP METB)on 022 Albumin [Mass/Vol] 3.6 g/dL Normal 3.4-5.0 [facility] Comment on above: Performed By: #### C MP ####[facility] Uazqtqbjrd459[address] [place], [place] [address]DrNancy Frazier Albumin/Globulin [Mass ratio] 1.1 {ratio} Normal [facility] Comment on above: Performed By: #### C MP ####[facility] Eaxcpfzlkh2968[address] [place], [place] [address]DrNancy Frazier ALP [Catalytic activity/Vol] 58 U/L Normal 46-116 [facility] Comment on above: Performed By: #### C MP ####[facility] Zwhxwbjkpx1016[address] [place], [place] [address]DrNancy Frazier ALT [Catalytic activity/Vol] 30 U/L Normal 16-63 [facility] Comment on above: Performed By: #### C MP ####[facility] Atqrrwpbqz89[address] [place] [address]Dr. Tishrowan Freddie Anion gap [Moles/Vol] 14.5 mmol/L Normal [facility] Comment on above: Performed By: #### C MP ####[facility] Vznixsgqyt1645[address] [place], [place] [address]Dr. Chrissy Freddie AST [Catalytic activity/Vol] 17 U/L Normal 15-37 [facility] Comment on above: Performed By: #### C MP ####[facility] Whyvcjkwjy4214[address] [place], [place] [address]Dr. Chrissy Frazier Bilirubin [Mass/Vol] 0.6 mg/dL Normal 0.2-1.0 [facility] Comment on above: Performed By: #### C MP ####[facility] Pvrayslxko431[address] [place], [place] [address]Dr. Chrissy Frazier Calcium [Mass/Vol] 8.4 mg/dL Critically low 8.5-10.1 [facility] Comment on above: Performed By: #### C MP ####[facility] Fdqkpufhsc1879[address] [place], [place] [address]Dr. Chrissy Frazier Chloride [Moles/Vol] 106 mmol/L Normal 98-107 [facility] Comment on above: Performed By: #### C MP ####[facility] Dyxsfnceum3414[address] [place], [place] [address]Dr. Chrissy Frazier CO2 [Moles/Vol] 22.6 mmol/L Normal 21.0-32.0 [facility] Comment on above: Performed By: #### C MP ####[facility] Tgfdkuozaj6801[address] [place], [place] [address]Dr. Chrissy Frazier Creatinine [Mass/Vol] 1.08 mg/dL Normal 0.70-1.30 [facility] Comment on above: Performed By: #### C MP ####[facility] Vvbfcqputa8385[address] [place], [place] [address]Dr. Chrissy Frazier EGFR-AF MALIAN >60 Normal >=60 [facility] Comment on above: Performed By: #### C MP ####[facility] Biiggbusis[address] [place] [phone]. Chrissy Frazier EGFR-NON AF MALIAN >60 Normal >=60 [facility] Comment on above: Performed By: #### C MP ####[facility] Rfhtchqavx5508 [place] [phone]. Chrissy Freddie Globulin (S) [Mass/Vol] 3.3 g/dL Normal [facility] Comment on above: Performed By: #### C MP ####[facility] Gcuwymicgq6933 [place] [phone]. Chrissy Freddie Glucose [Mass/Vol] 94 mg/dL Normal 74-106 [facility] Comment on above: Performed By: #### C MP ####[facility] Ptwtdhogzp49[address] [place] [address]Dr. Chrissy Freddie Potassium [Moles/Vol] 3.1 mmol/L Critically low 3.5-5.1 [facility] Comment on above: Performed By: #### C MP ####[facility] Ynehiliebh26[address] [place] [phone]. Chrissy Freddie Protein [Mass/Vol] 6.9 g/dL Normal 6.4-8.2 [facility] Comment on above: Performed By: #### C MP ####[facility] Akflwdomfq49[address] [place] [address]Dr. Chrissy Freddie Sodium [Moles/Vol] 140 mmol/L Normal 136-145 [facility] Comment on above: Performed By: #### C MP ####[facility] Uicixthjao30[address] [place] [phone]. Chrissy Freddie Urea nitrogen [Mass/Vol] 10.0 mg/dL Normal 7.0-18.0 [facility] Comment on above: Performed By: #### C MP ####[facility] Fdzcbtsvme7070 [place] [address]Dr. hCrissy Frazier Urea nitrogen/Creatinine [Mass ratio] 9.3 mg/mg Normal [facility] Comment on above: Performed By: #### C MP ####[facility] Pycphdtckn8[address] [place] [address]Dr. Chrissy Freddie CBC AUTO DIFFon 07-02-2022 BASO # 0.0 103/ul Normal 0.0-0.1 [facility] Comment on above: Performed By: #### C BC ####[facility] Ygjtfeffyq098[address] [place], [place] [address]Dr. Chrissy Frazier Basophils/100 WBC (Bld) 0.2 % Normal 0.2-2.0 [facility] Comment on above: Performed By: #### C BC ####[facility] Uhtcpnbstw2818[address] [place], [place] [address]Dr. Chrissy Frazier EO # 0.0 103/ul Normal 0.0-0.7 [facility] Comment on above: Performed By: #### C BC ####[facility] Khkxgczsfw920117 [address] [place], [place] [address]Dr. Chrissy Frazier Eosinophils/100 WBC (Bld) 0.0 % Critically low 0.9-7.0 [facility] Comment on above: Performed By: #### C BC ####[facility] Bwadqsfyoi969[address] [place], [place] [address]Dr. Tishrowan Frazier Erythrocyte distribution width (RBC) [Ratio] 14.2 % Normal 11.0-15.0 [facility] Comment on above: Performed By: #### C BC ####[facility] Czrecfrulh0142[address] [place], [place] [address]Dr. Chrissy Frazier Hematocrit (Bld) [Volume fraction] 46.2 % Normal 42.0-54.0 [facility] Comment on above: Performed By: #### C BC ####[facility] Hdclnlmbak6929[address] [place], [place] [address]Dr. Chrissy Frazier Hemoglobin (Bld) [Mass/Vol] 15.2 g/dL Normal 14.0-18.0 [facility] Comment on above: Performed By: #### C BC ####[facility] Irsgastmzn2718[address] [place], [place] [address]Dr. Chrissy Frazier IG # 0.07 10e3/ul Critically high 0.00-0.03 [facility] Comment on above: Performed By: #### C BC ####[facility] Gylitztfsh[address] [place] [address]DrNancy Chrissy Frazier IG % 0.4 % Normal 0.0-0.5 [facility] Comment on above: Performed By: #### C BC ####[facility] Hqbujwlsvt2982 [place] [address]DrNancy Chrissy Freddie LYMPH # 2.8 103/ul Normal 1.2-3.8 [facility] Comment on above: Performed By: #### C BC ####[facility] Pvvdsquadp0776[address] [place], [place] [address]DrNancy Tishrowan Frazier Lymphocytes/100 WBC (Bld) 16.7 % Critically low 20.5-60.0 [facility] Comment on above: Performed By: #### C BC ####[facility] Vidujxjiug3344[address] [place], [place] [address]DrNancy Frazier MANUAL DIFF REQ NO Normal [facility] Comment on above: Performed By: #### C BC ####[facility] Pllyxkkujy85[address] [place] [address]DrNancy Chrissy Freddie MCH (RBC) [Entitic mass] 28.3 pg Normal 25.9-34.0 [facility] Comment on above: Performed By: #### C BC ####[facility] Jxglbzegin0062[address] [place], [place] [address]DrNancy Chrissy Freddie MCHC (RBC) [Mass/Vol] 32.9 g/dL Normal 29.9-35.2 [facility] Comment on above: Performed By: #### C BC ####[facility] Wkjqdlcapp3549[address] [place], [place] [address]DrNancy Tishrowan Frazier MCV (RBC) [Entitic vol] 86.0 fL Normal 80.0-94.0 [facility] Comment on above: Performed By: #### C BC ####[facility] Otdprcelow7579[address] [place], [place] [address]DrNancy Frazier MONO # 0.9 103/ul Critically high 0.3-0.8 [facility] Comment on above: Performed By: #### C BC ####[facility] Iswionmlil[address] [place] [phone]. Chrissy Frazier Monocytes/100 WBC (Bld) 5.1 % Normal 1.7-12.0 [facility] Comment on above: Performed By: #### C BC ####[facility] Enqhrhukep4089 [place] [phone]. Chrissy Frazier NEUT # 13.2 103/ul Critically high 1.4-6.5 [facility] Comment on above: Performed By: #### C BC ####[facility] Gaztbcqosf6410 [place] [phone]. Chrissy Frazier Neutrophils/100 WBC (Bld) 77.6 % Critically high 43.0-75.0 [facility] Comment on above: Performed By: #### C BC ####[facility] Vnpiwivcvj1088 [place] [address]Dr. Chrissy Frazier Platelet mean volume (Bld) [Entitic vol] 11.6 fL Normal 9.5-13.5 [facility] Comment on above: Performed By: #### C BC ####[facility] Hzefzfdvpk9938[address] [place], [place] [address]Dr. Chrissy Frazier PLT 317 103/ul Normal 150-450 [facility] Comment on above: Performed By: #### C BC ####[facility] Xqtjcjhoty6044 [place] [phone]. Chrissy Frazier RBC 5.37 106/ul Normal 4.70-6.10 [facility] Comment on above: Performed By: #### C BC ####[facility] Umwtnbuxqi2612 [place] [phone]. Chrissy Frazier WBC 17.1 103/ul Critically high 4.0-11.0 [facility] Comment on above: Performed By: #### C BC ####[facility] Jjabownwzt1802 [place] [phone]. Chrissy Frazier CT ABD/PELV W CONon 07-02-[address] ABD/PELV W CON Normal [facility] H PYLORI ANTIBODY IGGon 06-21 H. PYLORI IGG ABS 0.13 Index Value Normal 0.00-0.79 [facility] Comment on above: Result Comment: Nega tive <0.80 Equivocal 0.80 - 0.89 Positive >0.89 Performed By: #### H PYLLC ####[facility] Nwotoqvxgi8171 [place] [address]Dr. Chrissy Frazier PROF 14(COMP METB)on 022 Albumin [Mass/Vol] 3.8 g/dL Normal 3.4-5.0 [facility] Comment on above: Performed By: #### C MP ####[facility] Ikvtviqprj816[address] [place], [place] [address]Dr. Chrissy Frazier Albumin/Globulin [Mass ratio] 1.0 {ratio} Normal [facility] Comment on above: Performed By: #### C MP ####[facility] Cjjnjqgfxo6818[address] [place], [place] [address]Dr. Chrissy Frazier ALP [Catalytic activity/Vol] 68 U/L Normal 46-116 [facility] Comment on above: Performed By: #### C MP ####[facility] Jmngvqbdhb8458[address] [place], [place] [address]Dr. Chrissy Frazier ALT [Catalytic activity/Vol] 34 U/L Normal 16-63 [facility] Comment on above: Performed By: #### C MP ####[facility] Etwjaxyfqs9367[address] [place], [place] [address]Dr. Chrissy Frazier Anion gap [Moles/Vol] 17.9 mmol/L Normal [facility] Comment on above: Performed By: #### C MP ####[facility] Fqcluugxum789[address] [place], [place] [address]Dr. Chrissy Frazier AST [Catalytic activity/Vol] 24 U/L Normal 15-37 [facility] Comment on above: Performed By: #### C MP ####[facility] Dbfiaokaiv4418[address] [place], [place] [address]Dr. Chrissy Frazier Bilirubin [Mass/Vol] 0.6 mg/dL Normal 0.2-1.0 [facility] Comment on above: Performed By: #### C MP ####[facility] Sykwdkhjfm3706 [place] [address]Dr. Chrissy Frazier Calcium [Mass/Vol] 8.8 mg/dL Normal 8.5-10.1 [facility] Comment on above: Performed By: #### C MP ####[facility] Wprqwdrcmn5805 [place] [address]Dr. Chrissy Frazier Chloride [Moles/Vol] 105 mmol/L Normal 98-107 [facility] Comment on above: Performed By: #### C MP ####[facility] Kekjkjjlcl2823 [place] [address]Dr. Chrissy Frazier CO2 [Moles/Vol] 18.8 mmol/L Critically low 21.0-32.0 [facility] Comment on above: Performed By: #### C MP ####[facility] Vprejchlgc0001[address] [place], [place] [address]Dr. Chrissy Frazier Creatinine [Mass/Vol] 1.15 mg/dL Normal 0.70-1.30 [facility] Comment on above: Performed By: #### C MP ####[facility] Zryzcipcjx5519[address] [place], [place] [address]Dr. Chrissy Frazier EGFR-AF MALIAN >60 Normal >=60 [facility] Comment on above: Performed By: #### C MP ####[facility] Jxqobrokcu15[address] [place] [address]Dr. Chrissy Frazier EGFR-NON AF MALIAN >60 Normal >=60 [facility] Comment on above: Performed By: #### C MP ####[facility] Wlgzavcepg2539 [place] [address]Dr. Chrissy Frazier Globulin (S) [Mass/Vol] 3.9 g/dL Normal [facility] Comment on above: Performed By: #### C MP ####[facility] Cbcjfacsky5458 [place] [address]Dr. Chrissy Frazier Glucose [Mass/Vol] 124 mg/dL Critically high 74-106 [facility] Comment on above: Performed By: #### C MP ####[facility] Azkwwdbdwa9429 [place] [address]Dr. Chrissy Frazier Potassium [Moles/Vol] 3.7 mmol/L Normal 3.5-5.1 [facility] Comment on above: Performed By: #### C MP ####[facility] Rcuxgdjwqv0768 [place] [address]Dr. Chrissy Frazier Protein [Mass/Vol] 7.7 g/dL Normal 6.4-8.2 [facility] Comment on above: Performed By: #### C MP ####[facility] Pydiialbdg547[address] [place], [place] [address]Dr. Chrissy Frazier Sodium [Moles/Vol] 138 mmol/L Normal 136-145 [facility] Comment on above: Performed By: #### C MP ####[facility] Msvyajfvov869[address] [place], [place] [address]Dr. Chrissy Frazier Urea nitrogen [Mass/Vol] 9.0 mg/dL Normal 7.0-18.0 [facility] Comment on above: Performed By: #### C MP ####[facility] Awiccmfjia3599[address] [place], [place] [address]Dr. Chrissy Frazier Urea nitrogen/Creatinine [Mass ratio] 7.8 mg/mg Normal [facility] Comment on above: Performed By: #### C MP ####[facility] Wrjswgjlcm2619[address] [place], [place] [address]Dr. Chrissy Frazier AMMONIAon 07-01-2022 Ammonia (P) [Moles/Vol] 14 umol/L Normal 11-32 [facility] Comment on above: Performed By: #### A MM ####[facility] Aszgpbtdpw719[address] [place], [place] [address]Dr. Chrissy Frazier AMYLASEon 07-01-2022 Amylase [Catalytic activity/Vol] 32 U/L Normal 25-115 [facility] Comment on above: Performed By: #### A MY, PHOS, CMP, LIPA ####[facility] Bdcxuzqyhh17[address] [place] [address]Dr. Chrissy Frazier CBC AUTO DIFFon 07-01-2022 BASO # 0.1 103/ul Normal 0.0-0.1 [facility] Comment on above: Performed By: #### C BC ####[facility] Pfyfmruvor0481 [place] [address]Dr. Tishrowan Freddie Basophils/100 WBC (Bld) 0.4 % Normal 0.2-2.0 [facility] Comment on above: Performed By: #### C BC ####[facility] Qonrcfudxy7967[address] [place], [place] [address]Dr. Chrissy Frazier EO # 0.2 103/ul Normal 0.0-0.7 [facility] Comment on above: Performed By: #### C BC ####[facility] Ssjvqkeoqd958[address] [place], [place] [address]Dr. Chrissy Frazier Eosinophils/100 WBC (Bld) 0.9 % Normal 0.9-7.0 [facility] Comment on above: Performed By: #### C BC ####[facility] Xkcenepnma1788[address] [place], [place] [address]Dr. Chrissy Frazier Erythrocyte distribution width (RBC) [Ratio] 13.8 % Normal 11.0-15.0 [facility] Comment on above: Performed By: #### C BC ####[facility] Bjzzxdjrye1866[address] [place], [place] [address]Dr. Chrissy Frazier Hematocrit (Bld) [Volume fraction] 46.3 % Normal 42.0-54.0 [facility] Comment on above: Performed By: #### C BC ####[facility] Aekcabvmgx3122[address] [place], [place] [address]Dr. Chrissy Frazier Hemoglobin (Bld) [Mass/Vol] 15.4 g/dL Normal 14.0-18.0 [facility] Comment on above: Performed By: #### C BC ####[facility] Ukjbujtyhu7894[address] [place], [place] [address]DrNancy Frazier IG # 0.05 10e3/ul Critically high 0.00-0.03 [facility] Comment on above: Performed By: #### C BC ####[facility] Bhlxsjivmj204[address] [place], [place] [address]Dr. Chrissy Frazier IG % 0.3 % Normal 0.0-0.5 [facility] Comment on above: Performed By: #### C BC ####[facility] Eslbenypip2264 [place] [address]DrNancy Frazier LYMPH # 2.0 103/ul Normal 1.2-3.8 [facility] Comment on above: Performed By: #### C BC ####[facility] Yudmonjzjo6317 [place] [address]DrNancy Frazier Lymphocytes/100 WBC (Bld) 12.9 % Critically low 20.5-60.0 [facility] Comment on above: Performed By: #### C BC ####[facility] Epbvjughdj899[address] [place], [place] [address]DrNancy Frazier MANUAL DIFF REQ NO Normal [facility] Comment on above: Performed By: #### C BC ####[facility] Ggismqdkna2731 [place] [address]DrNancy Frazier MCH (RBC) [Entitic mass] 28.6 pg Normal 25.9-34.0 [facility] Comment on above: Performed By: #### C BC ####[facility] Runtrrynjr7273[address] [place], [place] [address]DrNancy Frazier MCHC (RBC) [Mass/Vol] 33.3 g/dL Normal 29.9-35.2 [facility] Comment on above: Performed By: #### C BC ####[facility] Gmuhiyrdry5068[address] [place], [place] [address]DrNancy Frazier MCV (RBC) [Entitic vol] 86.1 fL Normal 80.0-94.0 [facility] Comment on above: Performed By: #### C BC ####[facility] Uzgzrclpza8475[address] [place], [place] [address]DrNancy Frazier MONO # 0.5 103/ul Normal 0.3-0.8 [facility] Comment on above: Performed By: #### C BC ####[facility] Tivjaljexo8935[address] [place], [place] [address]DrNancy Frazier Monocytes/100 WBC (Bld) 3.0 % Normal 1.7-12.0 [facility] Comment on above: Performed By: #### C BC ####[facility] Eglyhtpvdj3446 [place] [address]Dr. Chrissy Frazier NEUT # 13.0 103/ul Critically high 1.4-6.5 [facility] Comment on above: Performed By: #### C BC ####[facility] Mlzgvqiika8075 [place] [address]Dr. Chrissy Frazier Neutrophils/100 WBC (Bld) 82.5 % Critically high 43.0-75.0 [facility] Comment on above: Performed By: #### C BC ####[facility] Uylsqupcdy0628[address] [place], [place] [address]Dr. Chrissy Frazier Platelet mean volume (Bld) [Entitic vol] 10.0 fL Normal 9.5-13.5 [facility] Comment on above: Performed By: #### C BC ####[facility] Pdpjvfpilc4318[address] [place], [place] [address]Dr. Chrissy Frazier PLT 370 103/ul Normal 150-450 [facility] Comment on above: Performed By: #### C BC ####[facility] Bvcxheteet[address] [place], [place] [address]Dr. Chrissy Frazier RBC 5.38 106/ul Normal 4.70-6.10 [facility] Comment on above: Performed By: #### C BC ####[facility] Clinflninu8232[address] [place], [place] [address]Dr. Chrissy Frazier WBC 15.8 103/ul Critically high 4.0-11.0 [facility] Comment on above: Performed By: #### C BC ####[facility] Qwhmuwamee4345[address] [place], [place] [address]Dr. Chrissy Frazier CULTURE URINEon 07-01-2022 CULTURE URINE Culture Observations: No growth Normal [facility] Comment on above: Performed By: #### U RCX ####[facility] Hufmdtrgga59[address] [place], [place] [address]Dr. Chrissy Frazier Covid-19 PCR (CVDTBH)on 06-21 SARS-CoV-2 (COVID-19) RNA RHIANNON+probe Ql (Unsp spec) Not detected Normal NOT DETECTED [facility] Comment on above: Result Comment: When diagnostic testing is negative, the possibility of a false negative should be considered inthe context of a patient's recent exposures and the presence of clinical signs and symptomsconsistent with SARS-CoV-2.This test is not yet approved or cleared by the [place] FDA. When there are no FDA-approved or cleared tests available, and other criteria are met, FDA can make tests available under an emergency access mechanism called an Emergency Use Authorization (EUA). The EUA for this test is supported by the Reimbursement Manager of Health and Human Service's declaration that circumstances exist to justify the emergency use of in vitro diagnostics for the detection and/or diagnosis of the virus that causes COVID-19. This EUA will remain in effect for the duration of the COVID-19 declaration justifying emergency of IVDs, unless it is terminated or revoked by the FDA (after which the test may no longer be used). Performed By: #### C VDTBH ####[facility] [address] [place] [address]Dr. Chrissy Frazier DRUG SCREEN RAPID (URINE)on 07-01-2022 AMP Negative Normal NEGATIVE [facility] Comment on above: Performed By: #### D REYES UAMIC ####[facility] [address]ielnsxu[address] [place] [id number]. Chrissy Frazier BAR Negative Normal NEGATIVE [facility] Comment on above: Performed By: #### D REYES UAMIC ####[facility] Ipnvgkzunv[address] [place] [phone]. Chrissy Frazier BUP Negative Normal NEGATIVE [facility] Comment on above: Performed By: #### D REYES UAMIC ####[facility] Qlqjlfosqk[address] [place] [phone]. Chrissy Frazier BZO Negative Normal NEGATIVE [facility] Comment on above: Performed By: #### D REYES UAMIC ####[facility] Dfxvazqgsu[address] [place] [phone]. Chrissy Frazier LAUREN Negative Normal NEGATIVE [facility] Comment on above: Performed By: #### Amelie CHAMBERS UAMIC ####[facility] [address]qfkyzcd[address] [place], [place] [address]Dr. Chrissy Frazier CUT-OFFS SEE BELOW Normal [facility] Comment on above: Result Comment: AMP (Amphetamine): 500ng/mL, BAR (Barbituates): 200 ng/mL, BZO (Benzodiazepines): 150 ng/mL, BUP (Buprenorphine): 10 ng/mL, LAUREN (Cocaine): 150 ng/mL, mAMP (Methamphetamine): 500 ng/mL, MTD (Methadone): 200 ng/mL, OPI (Opiates): 100 ng/mL, OXY (Oxycodone): 100 ng/mL, PCP (Phencyclidine): 25 ng/mL, PPX (Propoxyphene): 300 ng/mL, THC (Cannabinoids): 50 ng/mL, TCA (Trycyclic Antidepressants): 300 ng/mL Performed By: #### Amelie CHAMBERS UAMIC ####[facility] [address]cspclbklk[address] [place], [place] [address]Dr. Chrissy Frazier DRUG CUT HEADER DRUG CLASS TEST SYSTEM CUT-OFF CONCENTRATIONS ARE FOLLOWS: Normal [facility] Comment on above: Performed By: #### Amelie CHAMBERS UAMIC ####[facility] Fprvxixgaj[address] [place], [place] [address]Dr. Chrissy Frazier mAMP Negative Normal NEGATIVE [facility] Comment on above: Performed By: #### Amelie CHAMBERS UAMIC ####[facility] Epfluwtnfp25[address] [place], [place] [address]Dr. Chrissy Frazier MTD Negative Normal NEGATIVE [facility] Comment on above: Performed By: #### Amelie CHAMBERS UAMIC ####[facility] Pecidaegoh[address] [place], [place] [address]Dr. Chrissy Frazier OPI Negative Normal NEGATIVE [facility] Comment on above: Performed By: #### Amelie CHAMBERS UAMIC ####[facility] Pmrxszemeq[address] [place], [place] [address]Dr. Chrissy Frazier OXY Negative Normal NEGATIVE [facility] Comment on above: Performed By: #### D REYES UAMIC ####[facility] Rnciayklul[address] [place] [address]Dr. Chrissy Frazier PCP Negative Normal NEGATIVE [facility] Comment on above: Performed By: #### D REYES, UAMIC ####[facility] Zmkboqkeyx[address] [place] [address]Dr. Chrissy Frazier PPX Negative Normal NEGATIVE [facility] Comment on above: Performed By: #### D REYES, UAMIC ####[facility] Xjestyntxh[address] [place] [address]Dr. Chrissy Frazier TCA Negative Normal NEGATIVE [facility] Comment on above: Performed By: #### D REYES UAMIC ####[facility] Zndmviqsmg[address] [place] [address]Dr. Chrissy Frazier THC Positive Abnormal NEGATIVE [facility] Comment on above: Performed By: #### D REYES UAMIC ####[facility] Zlhkfcstmn[address] [place] [address]Dr. Chrissy Frazier LACTATE/LACTIC ACIDon 2021 Lactate [Moles/Vol] 4.4 mmol/L Critically high 0.4-1.9 [facility] Comment on above: Performed By: #### L ACT ####[facility] Iitdhyapbp[address] [place], [place] [address]Dr. Chrissy Frazier LIPASEon 07-01-2022 Lipase [Catalytic activity/Vol] 57.0 U/L Critically low 73.0-393.0 [facility] Comment on above: Performed By: #### A MY, PHOS, CMP, LIPA ####[facility] Gepwshxgdg[address] [place] [address]Dr. Chrissy Frazier PHOSPHORUSon 07-01-2022 Phosphate [Mass/Vol] 1.4 mg/dL Critically low 2.6-4.7 [facility] Comment on above: Performed By: #### A MY, PHOS, CMP, LIPA ####[facility] Kczsepjmad4[address] [place], [place] [address]Dr. Chrissy Frazier PROF 14(COMP METB)on 022 Albumin [Mass/Vol] 4.2 g/dL Normal 3.4-5.0 [facility] Comment on above: Performed By: #### A MY, PHOS, CMP, LIPA ####[facility] Qccqrgdlhk5[address] [place] [address]Dr. Chrissy Frazier Albumin/Globulin [Mass ratio] 1.1 {ratio} Normal [facility] Comment on above: Performed By: #### A MY, PHOS, CMP, LIPA ####[facility] Bsqlqcpqfh[address] [place] [address]Dr. Chrissy Frazier ALP [Catalytic activity/Vol] 73 U/L Normal 46-116 [facility] Comment on above: Performed By: #### A MY, PHOS, CMP, LIPA ####[facility] Idanhaxtvc47[address] [place], [place] [address]Dr. Chrissy Frazier ALT [Catalytic activity/Vol] 43 U/L Normal 16-63 [facility] Comment on above: Performed By: #### A MY, PHOS, CMP, LIPA ####[facility] Ivlctzgqqe[address] [place], [place] [address]Dr. Chrissy Frazier Anion gap [Moles/Vol] 19.0 mmol/L Normal [facility] Comment on above: Performed By: #### A MY, PHOS, CMP, LIPA ####[facility] Necvnmlesm[address] [place] [address]Dr. Chrissy Frazier AST [Catalytic activity/Vol] 21 U/L Normal 15-37 [facility] Comment on above: Performed By: #### A MY, PHOS, CMP, LIPA ####[facility] Mbpereaeaj034[address] [place] [address]Dr. Chrissy Frazier Bilirubin [Mass/Vol] 0.5 mg/dL Normal 0.2-1.0 [facility] Comment on above: Performed By: #### A MY, PHOS, CMP, LIPA ####[facility] Bvomliqsev[address] [place], [place] [address]Dr. Chrissy Frazier Calcium [Mass/Vol] 9.3 mg/dL Normal 8.5-10.1 [facility] Comment on above: Performed By: #### A MY, PHOS, CMP, LIPA ####[facility] Epwdinlilm[address] [place] [address]Dr. Chrissy Frazier Chloride [Moles/Vol] 103 mmol/L Normal 98-107 [facility] Comment on above: Performed By: #### A MY, PHOS, CMP, LIPA ####[facility] Zimduzrdjr87[address] [place] [address]Dr. Chrissy Frazier CO2 [Moles/Vol] 21.1 mmol/L Normal 21.0-32.0 [facility] Comment on above: Performed By: #### A MY, PHOS, CMP, LIPA ####[facility] Olqogrocls[address] [place], [place] [address]Dr. Chrissy Frazier Creatinine [Mass/Vol] 1.44 mg/dL Critically high 0.70-1.30 [facility] Comment on above: Performed By: #### A MY, PHOS, CMP, LIPA ####[facility] Aptmevvrul7[address] [place], [place] [address]Dr. Chrissy Frazier EGFR-AF MALIAN >60 Normal >=60 [facility] Comment on above: Performed By: #### A MY, PHOS, CMP, LIPA ####[facility] Wztttuojrk[address] [place] [address]Dr. Chrissy Frazier EGFR-NON AF MALIAN 57 mL/min/1.73m2 Critically low >=60 [facility] Comment on above: Performed By: #### A MY, PHOS, CMP, LIPA ####[facility] Fqbuafjssl[address] [place] [address]Dr. Chrissy Frazier Globulin (S) [Mass/Vol] 3.9 g/dL Normal [facility] Comment on above: Performed By: #### A MY, PHOS, CMP, LIPA ####[facility] Jcujjjlvqj40[address] [place] [address]Dr. Chrissy Frazier Glucose [Mass/Vol] 148 mg/dL Critically high 74-106 [facility] Comment on above: Performed By: #### A MY, PHOS, CMP, LIPA ####[facility] Lertmrsqez16[address] [place] [address]Dr. Chrissy Frazier Potassium [Moles/Vol] 3.1 mmol/L Critically low 3.5-5.1 [facility] Comment on above: Performed By: #### A MY, PHOS, CMP, LIPA ####[facility] Sxhhkceneb[address] [place] [address]Dr. Chrissy Frazier Protein [Mass/Vol] 8.1 g/dL Normal 6.4-8.2 [facility] Comment on above: Performed By: #### A MY, PHOS, CMP, LIPA ####[facility] Resqwedgzd7[address] [place] [address]Dr. Chrissy Frazier Sodium [Moles/Vol] 140 mmol/L Normal 136-145 [facility] Comment on above: Performed By: #### A MY, PHOS, CMP, LIPA ####[facility] Khwfnimuia47[address] [place] [address]Dr. Chrissy Frazier Urea nitrogen [Mass/Vol] 10.0 mg/dL Normal 7.0-18.0 [facility] Comment on above: Performed By: #### A MY, PHOS, CMP, LIPA ####[facility] Jrazkfmzta[address] [place] [address]Dr. Chrissy Frazier Urea nitrogen/Creatinine [Mass ratio] 6.9 mg/mg Normal [facility] Comment on above: Performed By: #### A MY, PHOS, CMP, LIPA ####[facility] [address]xcjiuyx[address] [place] [address]Dr. Chrissy Frazier UA RANDOM W/MICROSCOPICon BACTERIA TRACE Abnormal NONE SEEN [facility] Comment on above: Performed By: #### D SORAYA CHAMBERSMIC ####[facility] Lqvcrrdhcg39[address] [place] [address]Dr. Tishrowan rFazier Bilirubin Ql (U) Negative Normal NEGATIVE [facility] Comment on above: Performed By: #### D REYES UAMIC ####[facility] Zfxtyeknfg8[address] [place], [place] [address]Dr. Tishrowan Freddie CAST NONE SEEN Normal NONE SEEN [facility] Comment on above: Performed By: #### Amelie CHAMBERS UAMIC ####[facility] Biqilvpxhy39[address] [place], [place] [address]Dr. Chrissy Frazier Clarity (U) CLEAR Normal CLEAR [facility] Comment on above: Performed By: #### Amelie CHAMBERS UAMIC ####[facility] Wjmqqicdbv67[address] [place], [place] [address]Dr. Chrissy Frazier Color (U) YELLOW Normal YELLOW [facility] Comment on above: Performed By: #### Amelie CHAMBERS UAMIC ####[facility] Nlkuijicqf[address] [place], [place] [address]Dr. Chrissy Frazier Crystals LM Nom (Urine sed) NONE SEEN Normal NONE SEEN [facility] Comment on above: Performed By: #### Amelie CHAMBERS UAMIC ####[facility] Xjyykwpjws17[address] [place], [place] [address]Dr. Chrissy Frazier Epithelial cells LM Ql (Urine sed) RARE Normal NONE SEEN /RARE [facility] Comment on above: Performed By: #### Amelie CHAMBERS UAMIC ####[facility] Iisswckpcb3[address] [place], [place] [address]Dr. Chrissy Frazier Glucose Ql (U) Negative Normal NEGATIVE [facility] Comment on above: Performed By: #### Amelie CHAMBERS UAMIC ####[facility] Jdhywfopej8[address] [place], [place] [address]Dr. Chrissy Frazier Hemoglobin Ql (U) Negative Normal NEGATIVE [facility] Comment on above: Performed By: #### Amelie CHAMBERS UAMIC ####[facility] Ogencoqkug8[address] [place], [place] [address]Dr. Chrissy Frazier Ketones Ql (U) 40 mg/dl Abnormal NEGATIVE [facility] Comment on above: Performed By: #### Amelie CHAMBERS UAMIC ####[facility] Lalzlpkkvx[address] [place], [place] [address]Dr. Chrissy Frazier LEUKOCYTES Negative Normal NEGATIVE [facility] Comment on above: Performed By: #### Amelie CHAMBERS UAMIC ####[facility] Apuhpbtsus[address] [place] [address]Dr. Chrissy Frazier MUCOUS MODERATE Abnormal NONE SEEN [facility] Comment on above: Performed By: #### Amelie CHAMBERS UAMIC ####[facility] Swwqwimweu6938 [place] [address]Dr. Chrissy Frazier Nitrite Ql (U) Negative Normal NEGATIVE [facility] Comment on above: Performed By: #### D REYES UAMIC ####[facility] Mxaskeuirr8[address] [place], [place] [address]Dr. Chrissy Frazier pH (U) 6.0 [pH] Normal 5-9 [facility] Comment on above: Performed By: #### Amelie CHAMBERS UAMIC ####[facility] Ueuahflrwi47[address] [place] [address]Dr. Chrissy Frazier RBC 0-2 Normal 0-2 [facility] Comment on above: Performed By: #### Amelie CHAMBERS UAMIC ####[facility] Rbfroqfogs8[address] [place], [place] [address]Dr. Chrissy Frazier SPEC GRAVITY 1.020 Normal 1.005-<=1.025 [facility] Comment on above: Performed By: #### Amelie CHAMBERS UAMIC ####[facility] Zqzxvqtdpp[address] [place], [place] [address]Dr. Chrissy Frazier UA PROTEIN Negative Normal NEGATIVE/ TRACE [facility] Comment on above: Performed By: #### Amelie CHAMBERS UAMIC ####[facility] Ktkysehpjb[address] [place], [place] [address]Dr. Chrissy Frazier Urobilinogen Qn (U) 0.2 {Estrellita'U}/dL Normal 0.2 - 1. 0 [facility] Comment on above: Performed By: #### Amelie CHAMBERS UAMIC ####[facility] Eionsbzycg[address] [place], [place] [address]Dr. Chrissy Frazier WBC 0-2 Abnormal NONE SEEN [facility] Comment on above: Performed By: #### Amelie CHAMBERS UAMIC ####[facility] Rmycqhywfw1314 [place], [place] [address]Ry. Chrissy Frazier XR ABD FLAT UP_PA Enoch 07-01 XR ABD FLAT UP_PA CH Normal [facility] Covid-19 PCR (CVDTB)on SARS-CoV-2 (COVID-19) RNA RHIANNON+probe Ql (Unsp spec) Not detected Normal NOT DETECTED [facility] Comment on above: Result Comment: When diagnostic testing is negative, the possibility of a false negative should be considered inthe context of a patient's recent exposures and the presence of clinical signs and symptomsconsistent with SARS-CoV-2.This test is not yet approved or cleared by the [place] FDA. When there are no FDA-approved or cleared tests available, and other criteria are met, FDA can make tests available under an emergency access mechanism called an Emergency Use Authorization (EUA). The EUA for this test is supported by the Reimbursement Manager of Health and Human Service's declaration that circumstances exist to justify the emergency use of in vitro diagnostics for the detection and/or diagnosis of the virus that causes COVID-19. This EUA will remain in effect for the duration of the COVID-19 declaration justifying emergency of IVDs, unless it is terminated or revoked by the FDA (after which the test may no longer be used). Performed By: #### [facility] ####[facility] Eeyyzrbiyz9[address] [place], [place] [address]Zi. Chrissy Frazier SYMPTOMATIC COVID-19 ANTIGEN on 04-23-2022 EUA Statement SEE BELOW Normal [facility] Comment on above: Result Comment: This test has not been FDA cleared or approved, but has been authorized by the FDA under an Emergency Use Authorization (EUA) for use by authorized laboratories certified under CLIA that meet the requirements to perform moderate or high complexity testing. This test has been authorized only for the detection of proteins from SARS-CoV-2, not for any other viruses or pathogens. The emergency use of this test is authorized for the duration of the declaration that circumstances exist justifying the authorization of emergency use of in vitro diagnostic tests for detection and/or diagnosis of Covid-19 under section 564(b)(1) of the Act, 21 U.S.C. 360bbb-3(b)(1), unless the declaration is terminated or authorization is revoked sooner. Performed By: #### C VDAGS ####[facility] Yijymjvbui[address] [place], [place] [address]Dr. Chrissy Frazier SARS-CoV-2 (COVID-19) RNA RHIANNON+probe Ql (Unsp spec) Negative Normal NEGATIVE [facility] Comment on above: Performed By: #### C VDAGS ####[facility] Izklggwyzw22[address] [place], [place] [address]Dr. Chrissy Frazier AMYLASEon 04-04-2022 Amylase [Catalytic activity/Vol] 40 U/L Normal 25-115 [facility] Comment on above: Performed By: #### C MPTERRENCE, LIPA ####[facility] Fuqdhueiue[address] [place], [place] [address]Dr. Chrissy Frazier CBC AUTO DIFFon 04-04-2022 BASO # 0.1 103/ul Normal 0.0-0.1 [facility] Comment on above: Performed By: #### C BC ####[facility] Sjfhdhgdft[address] [place], [place] [address]Dr. Chrissy Frazier Basophils/100 WBC (Bld) 0.4 % Normal 0.2-2.0 [facility] Comment on above: Performed By: #### C BC ####[facility] Foxedsgxdn[address] [place], [place] [address]Dr. Chrissy Frazier EO # 0.1 103/ul Normal 0.0-0.7 [facility] Comment on above: Performed By: #### C BC ####[facility] Dvfdfdvmwk2262[address] [place], [place] [address]Dr. Chrissy Frazier Eosinophils/100 WBC (Bld) 0.6 % Critically low 0.9-7.0 [facility] Comment on above: Performed By: #### C BC ####[facility] Lchomraqnm[address] [place], [place] [address]Dr. Chrissy Frazier Erythrocyte distribution width (RBC) [Ratio] 13.2 % Normal 11.0-15.0 [facility] Comment on above: Performed By: #### C BC ####[facility] Ksppkntqxt[address] [place] [address]Dr. Chrissy Frazier Hematocrit (Bld) [Volume fraction] 48.3 % Normal 42.0-54.0 [facility] Comment on above: Performed By: #### C BC ####[facility] Tkeghjxhfq6665 [place] [address]Dr. Chrissy Frazier Hemoglobin (Bld) [Mass/Vol] 16.1 g/dL Normal 14.0-18.0 [facility] Comment on above: Performed By: #### C BC ####[facility] Yfzfzwxpsy[address] [place], [place] [address]Dr. Chrissy Frazier IG # 0.12 10e3/ul Critically high 0.00-0.03 [facility] Comment on above: Performed By: #### C BC ####[facility] Gcndmvkntp24[address] [place], [place] [address]Dr. Tishrowan Frazier IG % 0.9 % Critically high 0.0-0.5 [facility] Comment on above: Performed By: #### C BC ####[facility] Zfwtwrhezu9[address] [place], [place] [address]Dr. Chrissy Freddie LYMPH # 3.0 103/ul Normal 1.2-3.8 [facility] Comment on above: Performed By: #### C BC ####[facility] Txbmbmhctk[address] [place], [place] [address]DrNancy Tishrowan Frazier Lymphocytes/100 WBC (Bld) 22.3 % Normal 20.5-60.0 [facility] Comment on above: Performed By: #### C BC ####[facility] Bhzsxawuxx[address] [place], [place] [address]Dr. Tishrowan Frazier MANUAL DIFF REQ NO Normal [facility] Comment on above: Performed By: #### C BC ####[facility] Xoypepxbdy[address] [place], [place] [address]DrNancy Chrissy Freddie MCH (RBC) [Entitic mass] 28.6 pg Normal 25.9-34.0 [facility] Comment on above: Performed By: #### C BC ####[facility] Wvktfsundz74[address] [place] [id number]. Tishrowan Frazier MCHC (RBC) [Mass/Vol] 33.3 g/dL Normal 29.9-35.2 [facility] Comment on above: Performed By: #### C BC ####[facility] Muehhqwiha5[address] [place] [id number]. Chrissy Frazier MCV (RBC) [Entitic vol] 85.9 fL Normal 80.0-94.0 [facility] Comment on above: Performed By: #### C BC ####[facility] Quwwpxdxrz[address] [place], [place] [address]Dr. Crhissy Frazier MONO # 0.8 103/ul Normal 0.3-0.8 [facility] Comment on above: Performed By: #### C BC ####[facility] Qzmagvirdd[address] [place], [place] [address]Dr. Chrissy Frazier Monocytes/100 WBC (Bld) 5.7 % Normal 1.7-12.0 [facility] Comment on above: Performed By: #### C BC ####[facility] Faswysxvva[address] [place], [place] [address]Dr. Chrissy Frazier NEUT # 9.3 103/ul Critically high 1.4-6.5 [facility] Comment on above: Performed By: #### C BC ####[facility] Fejzmahtld17[address] [place], [place] [address]Dr. Chrissy Frazier Neutrophils/100 WBC (Bld) 70.1 % Normal 43.0-75.0 [facility] Comment on above: Performed By: #### C BC ####[facility] Egsqaqgvok[address] [place], [place] [address]Dr. Chrissy Frazier Platelet mean volume (Bld) [Entitic vol] 10.3 fL Normal 9.5-13.5 [facility] Comment on above: Performed By: #### C BC ####[facility] Rjkdacvfhe[address] [place], [place] [address]Dr. Chrissy Frazier PLT 461 103/ul Critically high 150-450 [facility] Comment on above: Performed By: #### C BC ####[facility] Oun[address]jkbde[address] [place] [address]Dr. Tishrowan Freddie RBC 5.62 106/ul Normal 4.70-6.10 [facility] Comment on above: Performed By: #### C BC ####[facility] Kxsnkxbdzn26[address] [place] [address]Dr. Chrissy Frazier WBC 13.3 103/ul Critically high 4.0-11.0 [facility] Comment on above: Performed By: #### C BC ####[facility] Vrtzxsbads97[address] [place] [address]Dr. Chrissy Frazier LIPASEon 04-04-2022 Lipase [Catalytic activity/Vol] 118.0 U/L Normal 73.0-393.0 [facility] Comment on above: Performed By: #### C MP, TERRENCE, LIPA ####[facility] Lblwilfqcp4801 [place] [address]Dr. Chrissy Frazier PROF 14(COMP METB)on 022 Albumin [Mass/Vol] 4.3 g/dL Normal 3.4-5.0 [facility] Comment on above: Performed By: #### C MP, TERRENCE, LIPA ####[facility] Gbvvfepdts[address] [place], [place] [address]Dr. Chrissy Frazier Albumin/Globulin [Mass ratio] 1.0 {ratio} Normal [facility] Comment on above: Performed By: #### C MP, TERRENCE, LIPA ####[facility] Ktkzavkyuw[address] [place] [address]Dr. Chrissy Frazier ALP [Catalytic activity/Vol] 84 U/L Normal 46-116 [facility] Comment on above: Performed By: #### C MP, TERRENCE, LIPA ####[facility] Dppvqqbxcj7916 [place] [address]Dr. Chrissy Frazier ALT [Catalytic activity/Vol] 81 U/L Critically high 16-63 [facility] Comment on above: Performed By: #### C MP, TERRENCE, LIPA ####[facility] Bzqucrbhjr[address] [place], [place] [address]Dr. Chrissy Frazier Anion gap [Moles/Vol] 17.9 mmol/L Normal [facility] Comment on above: Performed By: #### C TERRENCE ADAIR, LIPA ####[facility] Ujjemwdjxg20[address] [place] [address]Dr. Chrissy Frazier AST [Catalytic activity/Vol] 25 U/L Normal 15-37 [facility] Comment on above: Performed By: #### C MANA TERRENCE, LIPA ####[facility] Amicgqhqwh[address] [place], [place] [address]Dr. Chrissy Frazier Bilirubin [Mass/Vol] 0.5 mg/dL Normal 0.2-1.0 [facility] Comment on above: Performed By: #### C TERRENCE ADAIR, LIPA ####[facility] Pyzoknelrx6[address] [place], [place] [address]Dr. Chrissy Frazier Calcium [Mass/Vol] 9.6 mg/dL Normal 8.5-10.1 [facility] Comment on above: Performed By: #### C MANA TERRENCE, LIPA ####[facility] Xksfbxphbo[address] [place], [place] [address]Dr. Chrissy Frazier Chloride [Moles/Vol] 101 mmol/L Normal 98-107 [facility] Comment on above: Performed By: #### C MANA TERRENCE, LIPA ####[facility] Hugkwmtzjt25[address] [place], [place] [address]Dr. Chrissy Frazier CO2 [Moles/Vol] 18.6 mmol/L Critically low 21.0-32.0 [facility] Comment on above: Performed By: #### C MANA TERRENCE, LIPA ####[facility] Xcqrxfnnvm[address] [place], [place] [address]Dr. Chrissy Frazier Creatinine [Mass/Vol] 1.39 mg/dL Critically high 0.70-1.30 [facility] Comment on above: Performed By: #### C MP, TERRENCE, LIPA ####[facility] U[address]kuwrkgs[address] [place], [place] [address]Dr. Chrissy Frazier EGFR-AF MALIAN >60 Normal >=60 [facility] Comment on above: Performed By: #### C MP, TERRENCE, LIPA ####[facility] Bjwxmoutdu030[address] [place] [address]Dr. Chrissy Frazier EGFR-NON AF MALIAN 59 mL/min/1.73m2 Critically low >=60 [facility] Comment on above: Performed By: #### C MP, TERRENCE, LIPA ####[facility] Xvaepumwck[address] [place] [address]Dr. Chrissy Frazier Globulin (S) [Mass/Vol] 4.3 g/dL Normal [facility] Comment on above: Performed By: #### C MP, TERRENCE, LIPA ####[facility] Eeaydfixic[address] [place] [address]Dr. Chrissy Frazier Glucose [Mass/Vol] 132 mg/dL Critically high 74-106 [facility] Comment on above: Performed By: #### C MP, TERRENCE, LIPA ####[facility] [address]pyafwqxco[address] [place], [place] [address]Dr. Chrissy Frazier Potassium [Moles/Vol] 3.5 mmol/L Normal 3.5-5.1 [facility] Comment on above: Performed By: #### C MP, TERRENCE, LIPA ####[facility] Iysyobnmte[address] [place], [place] [address]Dr. Chrissy Frazier Protein [Mass/Vol] 8.6 g/dL Critically high 6.4-8.2 [facility] Comment on above: Performed By: #### C MP, TERRENCE, LIPA ####[facility] Hymcflipac[address] [place] [address]Dr. Chrissy Frazier Sodium [Moles/Vol] 134 mmol/L Critically low 136-145 [facility] Comment on above: Performed By: #### C MP, TERRENCE, LIPA ####[facility] Zyeonipnxi[address] [place] [address]Dr. Chrissy Frazier Urea nitrogen [Mass/Vol] 8.0 mg/dL Normal 7.0-18.0 [facility] Comment on above: Performed By: #### C MP, TERRENCE, LIPA ####[facility] Dmnagxatek[address] [place], [place] [address]Dr. Chrissy Frazier Urea nitrogen/Creatinine [Mass ratio] 5.8 mg/mg Normal [facility] Comment on above: Performed By: #### C TERRENCE ADAIR LIPA ####[facility] Qnhkbxxass74[address] [place] [address]Dr. Chrissy Frazier XR ABD FLAT UP_PA Enoch 04-04 XR ABD FLAT UP_PA CH Normal [facility] AMMONIAon 03-31-2022 Ammonia (P) [Moles/Vol] 19 umol/L Normal 11-32 [facility] Comment on above: Performed By: #### A MM ####[facility] Uxmhdnlxat[address] [place], [place] [address]Dr. Chrissy Frazier CBC AUTO DIFFon 03-31-2022 BASO # 0.1 103/ul Normal 0.0-0.1 [facility] Comment on above: Performed By: #### C BC ####[facility] Spjgzqxlky8245[address] [place], [place] [address]Dr. Chrissy Frazier Basophils/100 WBC (Bld) 0.5 % Normal 0.2-2.0 [facility] Comment on above: Performed By: #### C BC ####[facility] Dcjdwzrzsi9[address] [place], [place] [address]DrNancy Frazier EO # 0.2 103/ul Normal 0.0-0.7 [facility] Comment on above: Performed By: #### C BC ####[facility] Vuxfdopfuf[address] [place], [place] [address]Dr. Chrissy Frazier Eosinophils/100 WBC (Bld) 1.6 % Normal 0.9-7.0 [facility] Comment on above: Performed By: #### C BC ####[facility] Gpevvmitwx[address] [place], [place] [address]Dr. Chrissy Frazier Erythrocyte distribution width (RBC) [Ratio] 13.2 % Normal 11.0-15.0 [facility] Comment on above: Performed By: #### C BC ####[facility] Rezswsqqjy[address] [place], [place] [address]Dr. Chrissy Frazier Hematocrit (Bld) [Volume fraction] 42.1 % Normal 42.0-54.0 [facility] Comment on above: Performed By: #### C BC ####[facility] Oaxkfhgeee[address] [place] [address]Dr. Chrissy Frazier Hemoglobin (Bld) [Mass/Vol] 14.3 g/dL Normal 14.0-18.0 [facility] Comment on above: Performed By: #### C BC ####[facility] Wwtfmcyegy16[address] [place], [place] [address]Dr. Chrissy Frazier IG # 0.05 10e3/ul Critically high 0.00-0.03 [facility] Comment on above: Performed By: #### C BC ####[facility] Luvxvlvucw0759[address] [place], [place] [address]Dr. Chrissy Frazier IG % 0.5 % Normal 0.0-0.5 [facility] Comment on above: Performed By: #### C BC ####[facility] Evlbsluuvo3814[address] [place], [place] [address]Dr. Chrissy Frazier LYMPH # 2.9 103/ul Normal 1.2-3.8 [facility] Comment on above: Performed By: #### C BC ####[facility] Aqsjrlmsme9286[address] [place], [place] [address]Dr. Chrissy Frazier Lymphocytes/100 WBC (Bld) 25.7 % Normal 20.5-60.0 [facility] Comment on above: Performed By: #### C BC ####[facility] Thpayhnfmr5722[address] [place], [place] [address]Dr. Chrissy Frazier MANUAL DIFF REQ NO Normal [facility] Comment on above: Performed By: #### C BC ####[facility] Mnrwzrraif4987[address] [place], [place] [address]Dr. Chrissy Frazier MCH (RBC) [Entitic mass] 29.2 pg Normal 25.9-34.0 [facility] Comment on above: Performed By: #### C BC ####[facility] Iirfyinooy3659[address] [place], [place] [address]Dr. Chrissy Frazier MCHC (RBC) [Mass/Vol] 34.0 g/dL Normal 29.9-35.2 [facility] Comment on above: Performed By: #### C BC ####[facility] Ioeltsfkki04[address] [place] [address]DrNancy Frazier MCV (RBC) [Entitic vol] 85.9 fL Normal 80.0-94.0 [facility] Comment on above: Performed By: #### C BC ####[facility] Qpctmzmshe9113[address] [place], [place] [address]DrNancy Frazier MONO # 1.0 103/ul Critically high 0.3-0.8 [facility] Comment on above: Performed By: #### C BC ####[facility] Npikprytjo050[address] [place], [place] [address]DrNancy Frazier Monocytes/100 WBC (Bld) 8.6 % Normal 1.7-12.0 [facility] Comment on above: Performed By: #### C BC ####[facility] Vgxpxwxobx545[address] [place], [place] [address]DrNancy Frazier NEUT # 7.0 103/ul Critically high 1.4-6.5 [facility] Comment on above: Performed By: #### C BC ####[facility] Cgkyvxqzrz0139[address] [place], [place] [address]DrNancy Frazier Neutrophils/100 WBC (Bld) 63.1 % Normal 43.0-75.0 [facility] Comment on above: Performed By: #### C BC ####[facility] Vmoxedrzyb0215[address] [place], [place] [address]DrNancy Frazier Platelet mean volume (Bld) [Entitic vol] 10.4 fL Normal 9.5-13.5 [facility] Comment on above: Performed By: #### C BC ####[facility] Riootlmnyu22[address] [place], [place] [address]DrNancy Frazier PLT 308 103/ul Normal 150-450 [facility] Comment on above: Performed By: #### C BC ####[facility] Ggbpitfotl1622[address] [place], [place] [address]DrNancy Frazier RBC 4.90 106/ul Normal 4.70-6.10 [facility] Comment on above: Performed By: #### C BC ####[facility] Nqbvapgvdb24[address] [place] [id number]. Chrissy Frazier WBC 11.1 103/ul Critically high 4.0-11.0 [facility] Comment on above: Performed By: #### C BC ####[facility] Wamylnxbvu99[address] [place] [address]DrNancy Frazier PROF 14(COMP METB)on 022 Albumin [Mass/Vol] 3.5 g/dL Normal 3.4-5.0 [facility] Comment on above: Performed By: #### C MP ####[facility] Sykpgotlwz[address] [place], [place] [address]DrNancy Frazier Albumin/Globulin [Mass ratio] 0.9 {ratio} Normal [facility] Comment on above: Performed By: #### C MP ####[facility] Tmzimzijba2865[address] [place], [place] [address]Dr. Chrissy Frazier ALP [Catalytic activity/Vol] 68 U/L Normal 46-116 [facility] Comment on above: Performed By: #### C MP ####[facility] Lildompuyp[address] [place], [place] [address]DrNancy Frazier ALT [Catalytic activity/Vol] 113 U/L Critically high 16-63 [facility] Comment on above: Performed By: #### C MP ####[facility] Wtnfhcaxaz9256[address] [place], [place] [address]DrNancy Frazier Anion gap [Moles/Vol] 14.0 mmol/L Normal [facility] Comment on above: Performed By: #### C MP ####[facility] Qpsrbdbugg[address] [place], [place] [address]DrNancy Frazier AST [Catalytic activity/Vol] 31 U/L Normal 15-37 [facility] Comment on above: Performed By: #### C MP ####[facility] Euxfnatpio1207[address] [place], [place] [address]DrNancy Frazier Bilirubin [Mass/Vol] 0.6 mg/dL Normal 0.2-1.0 [facility] Comment on above: Performed By: #### C MP ####[facility] Yjlioskyyg[address] [place] [address]Dr. Chrissy Frazier Calcium [Mass/Vol] 8.4 mg/dL Critically low 8.5-10.1 [facility] Comment on above: Performed By: #### C MP ####[facility] Ksevbeumdx4721 [place] [address]Dr. Chrissy Frazier Chloride [Moles/Vol] 101 mmol/L Normal 98-107 [facility] Comment on above: Performed By: #### C MP ####[facility] Efnwyweydg7677[address] [place], [place] [address]Dr. Chrissy Frazier CO2 [Moles/Vol] 24.2 mmol/L Normal 21.0-32.0 [facility] Comment on above: Performed By: #### C MP ####[facility] Hmjywgjngp024[address] [place], [place] [address]Dr. Chrissy Freddie Creatinine [Mass/Vol] 1.15 mg/dL Normal 0.70-1.30 [facility] Comment on above: Performed By: #### C MP ####[facility] Zivceikslx7379[address] [place], [place] [address]Dr. Chrissy Freddie EGFR-AF MALIAN >60 Normal >=60 [facility] Comment on above: Performed By: #### C MP ####[facility] Wvgpvqorop[address] [place] [address]Dr. Tishrowan Freddie EGFR-NON AF MALIAN >60 Normal >=60 [facility] Comment on above: Performed By: #### C MP ####[facility] Dkzmxqwqhe24[address] [place] [address]Dr. Chrissy Frazier Globulin (S) [Mass/Vol] 3.8 g/dL Normal [facility] Comment on above: Performed By: #### C MP ####[facility] Tuvoqgshid9247[address] [place], [place] [address]Dr. Chrissy Frazier Glucose [Mass/Vol] 100 mg/dL Normal 74-106 [facility] Comment on above: Performed By: #### C MP ####[facility] Ocbqpcklpr[address] [place] [address]Dr. Chrissy Freddie Potassium [Moles/Vol] 3.2 mmol/L Critically low 3.5-5.1 [facility] Comment on above: Performed By: #### C MP ####[facility] Zrifanfyda1209[address] [place], [place] [address]Dr. Chrissy Frazier Protein [Mass/Vol] 7.3 g/dL Normal 6.4-8.2 [facility] Comment on above: Performed By: #### C MP ####[facility] Spqbjlmspe8908[address] [place], [place] [address]Dr. Chrissy Frazier Sodium [Moles/Vol] 136 mmol/L Normal 136-145 [facility] Comment on above: Performed By: #### C MP ####[facility] Cpctuuxwiv6294[address] [place], [place] [address]Dr. Chrissy Frazier Urea nitrogen [Mass/Vol] 13.0 mg/dL Normal 7.0-18.0 [facility] Comment on above: Performed By: #### C MP ####[facility] Vyandflicw7205[address] [place], [place] [address]Dr. Chrissy Frazier Urea nitrogen/Creatinine [Mass ratio] 11.3 mg/mg Normal [facility] Comment on above: Performed By: #### C MP ####[facility] Uvvyzgnysg7828[address] [place], [place] [address]Dr. Chrissy Frazier AMMONIAon 03-30-2022 Ammonia (P) [Mass/Vol] ug/dL Critically low 11-32 [facility] Comment on above: Performed By: #### A MM ####[facility] Oultzilxwo9255[address] [place], [place] [address]Dr. Chrissy Frazier CBC AUTO DIFFon 03-30-2022 BASO # 0.1 103/ul Normal 0.0-0.1 [facility] Comment on above: Performed By: #### C BC ####[facility] Tdkpaavxuc7534[address] [place], [place] [address]Dr. Chrissy Frazier Basophils/100 WBC (Bld) 0.5 % Normal 0.2-2.0 [facility] Comment on above: Performed By: #### C BC ####[facility] Pyrqdiwsxv7969[address] [place], [place] [address]Dr. Chrissy Frazier EO # 0.1 103/ul Normal 0.0-0.7 [facility] Comment on above: Performed By: #### C BC ####[facility] Zsbmlzbpqn2885[address] [place], [place] [address]Dr. Chrissy Frazier Eosinophils/100 WBC (Bld) 1.1 % Normal 0.9-7.0 [facility] Comment on above: Performed By: #### C BC ####[facility] Atefwdtavy3149[address] [place], [place] [address]Dr. Chrissy Frazier Erythrocyte distribution width (RBC) [Ratio] 13.4 % Normal 11.0-15.0 [facility] Comment on above: Performed By: #### C BC ####[facility] Yllknqlweg6183[address] [place], [place] [address]Dr. Chrissy Frazier Hematocrit (Bld) [Volume fraction] 45.8 % Normal 42.0-54.0 [facility] Comment on above: Performed By: #### C BC ####[facility] Rrvnveeonk[address] [place], [place] [address]Dr. Chrissy Frazier Hemoglobin (Bld) [Mass/Vol] 14.9 g/dL Normal 14.0-18.0 [facility] Comment on above: Performed By: #### C BC ####[facility] Jrdoxstose3665[address] [place], [place] [address]Dr. Chrissy Frazier IG # 0.05 10e3/ul Critically high 0.00-0.03 [facility] Comment on above: Performed By: #### C BC ####[facility] Ztlciqgpzl350[address] [place], [place] [address]Dr. Chrissy Frazier IG % 0.5 % Normal 0.0-0.5 [facility] Comment on above: Performed By: #### C BC ####[facility] Nmxcabpdje2234[address] [place], [place] [address]DrNancy Frazier LYMPH # 3.0 103/ul Normal 1.2-3.8 [facility] Comment on above: Performed By: #### C BC ####[facility] Fautipvdme06[address] [place] [id number] Frazier Lymphocytes/100 WBC (Bld) 30.2 % Normal 20.5-60.0 [facility] Comment on above: Performed By: #### C BC ####[facility] Ncyvxsmnfe1496[address] [place], [place] [address]DrNancy Frazier MANUAL DIFF REQ NO Normal [facility] Comment on above: Performed By: #### C BC ####[facility] Pohonoohmc[address] [place] [address]DrNancy Frazier MCH (RBC) [Entitic mass] 28.4 pg Normal 25.9-34.0 [facility] Comment on above: Performed By: #### C BC ####[facility] Ftdejkocda1052[address] [place], [place] [address]DrNancy Frazier MCHC (RBC) [Mass/Vol] 32.5 g/dL Normal 29.9-35.2 [facility] Comment on above: Performed By: #### C BC ####[facility] Juoyhwadnj038[address] [place], [place] [address]DrNancy Frazier MCV (RBC) [Entitic vol] 87.4 fL Normal 80.0-94.0 [facility] Comment on above: Performed By: #### C BC ####[facility] Qkmefyurxc3968[address] [place], [place] [address]DrNancy Frazier MONO # 0.8 103/ul Normal 0.3-0.8 [facility] Comment on above: Performed By: #### C BC ####[facility] Luvyqkadph8222[address] [place], [place] [address]DrNancy Frazier Monocytes/100 WBC (Bld) 7.9 % Normal 1.7-12.0 [facility] Comment on above: Performed By: #### C BC ####[facility] Mkltneokip030[address] [place], [place] [address]DrNancy Frazier NEUT # 5.9 103/ul Normal 1.4-6.5 [facility] Comment on above: Performed By: #### C BC ####[facility] Hguqdhvxml79[address] [place] [address]Dr. Chrissy Frazier Neutrophils/100 WBC (Bld) 59.8 % Normal 43.0-75.0 [facility] Comment on above: Performed By: #### C BC ####[facility] Gjymkmjhji9729[address] [place], [place] [address]Dr. Chrissy Frazier Platelet mean volume (Bld) [Entitic vol] 10.1 fL Normal 9.5-13.5 [facility] Comment on above: Performed By: #### C BC ####[facility] Vmnczaezwj2211[address] [place], [place] [address]Dr. Chrissy Frazier PLT 320 103/ul Normal 150-450 [facility] Comment on above: Performed By: #### C BC ####[facility] Rouzkhuypx6143[address] [place], [place] [address]Dr. Chrissy Frazier RBC 5.24 106/ul Normal 4.70-6.10 [facility] Comment on above: Performed By: #### C BC ####[facility] Jlyavowjmk1579[address] [place], [place] [address]Dr. Chrissy Frazier WBC 9.9 103/ul Normal 4.0-11.0 [facility] Comment on above: Performed By: #### C BC ####[facility] Zyfgxdnjhf7884[address] [place], [place] [address]Dr. Chrissy Frazier PROF 14(COMP METB)on 022 Albumin [Mass/Vol] 3.9 g/dL Normal 3.4-5.0 [facility] Comment on above: Performed By: #### C MP ####[facility] Nkkyglybob4295[address] [place], [place] [address]DrNancy Frazier Albumin/Globulin [Mass ratio] 1.1 {ratio} Normal [facility] Comment on above: Performed By: #### C MP ####[facility] Piqyixooqp4564[address] [place], [place] [address]Dr. Chrissy Frazier ALP [Catalytic activity/Vol] 88 U/L Normal 46-116 [facility] Comment on above: Performed By: #### C MP ####[facility] Skmikfuigi025[address] [place] [address]Dr. Chrissy Frazier ALT [Catalytic activity/Vol] 161 U/L Critically high 16-63 [facility] Comment on above: Performed By: #### C MP ####[facility] Bntbdlfgqq45[address] [place] [address]Dr. Chrissy Frazier Anion gap [Moles/Vol] 12.3 mmol/L Normal [facility] Comment on above: Performed By: #### C MP ####[facility] Wvkxepjjpf398[address] [place], [place] [address]Dr. Chrissy Frazier AST [Catalytic activity/Vol] 64 U/L Critically high 15-37 [facility] Comment on above: Performed By: #### C MP ####[facility] Slbtoineeq6[address] [place], [place] [address]Dr. Chrissy Frazier Bilirubin [Mass/Vol] 0.8 mg/dL Normal 0.2-1.0 [facility] Comment on above: Performed By: #### C MP ####[facility] Usglekvrsq[address] [place], [place] [address]Dr. Chrissy Frazier Calcium [Mass/Vol] 8.4 mg/dL Critically low 8.5-10.1 [facility] Comment on above: Performed By: #### C MP ####[facility] Fqrauaeifk5336[address] [place], [place] [address]Dr. Chrissy Frazier Chloride [Moles/Vol] 103 mmol/L Normal 98-107 [facility] Comment on above: Performed By: #### C MP ####[facility] Xkrsyvvofq3125[address] [place], [place] [address]Dr. Chrissy Frazier CO2 [Moles/Vol] 26.5 mmol/L Normal 21.0-32.0 [facility] Comment on above: Performed By: #### C MP ####[facility] Jbuyvmltvf2842[address] [place], [place] [address]Dr. Chrissy Freddie Creatinine [Mass/Vol] 1.24 mg/dL Normal 0.70-1.30 [facility] Comment on above: Performed By: #### C MP ####[facility] Qpsgnfsmcb8704 [place] [address]Dr. Chrissy Frazier EGFR-AF MALIAN >60 Normal >=60 [facility] Comment on above: Performed By: #### C MP ####[facility] Ddgcsojfbr13[address] [place] [phone]. Chrissy Freddie EGFR-NON AF MALIAN >60 Normal >=60 [facility] Comment on above: Performed By: #### C MP ####[facility] Zqchredhou2850 [place] [phone]. Chrissy Freddie Globulin (S) [Mass/Vol] 3.7 g/dL Normal [facility] Comment on above: Performed By: #### C MP ####[facility] Xkneqhlzyq3766 [place] [address]Dr. Tishrowan Freddie Glucose [Mass/Vol] 108 mg/dL Critically high 74-106 [facility] Comment on above: Performed By: #### C MP ####[facility] Tujrawxvyg02[address] [place] [address]Dr. Chrissy Freddie Potassium [Moles/Vol] 3.8 mmol/L Normal 3.5-5.1 [facility] Comment on above: Performed By: #### C MP ####[facility] Gdttsrlcar4720 [place] [address]Dr. Chrissy Freddie Protein [Mass/Vol] 7.6 g/dL Normal 6.4-8.2 [facility] Comment on above: Performed By: #### C MP ####[facility] Paqtiuaodg59[address] [place] [address]Dr. Tishrowan Frazier Sodium [Moles/Vol] 138 mmol/L Normal 136-145 [facility] Comment on above: Performed By: #### C MP ####[facility] Gipbwrhvtc9415 [place] [address]Dr. Chrissy Frazier Urea nitrogen [Mass/Vol] 12.0 mg/dL Normal 7.0-18.0 [facility] Comment on above: Performed By: #### C MP ####[facility] Cmopomittn6525[address] [place], [place] [address]Dr. Chrissy Frazier Urea nitrogen/Creatinine [Mass ratio] 9.7 mg/mg Normal [facility] Comment on above: Performed By: #### C MP ####[facility] Nrlwkkxdsk0657 [place] [address]Dr. Chrissy Frazier AMMONIAon 03-29-2022 Ammonia (P) [Moles/Vol] 27 umol/L Normal 11-32 [facility] Comment on above: Performed By: #### A MM ####[facility] Ggoybmvpxl5743[address] [place], [place] [address]Dr. Chrissy Frazier AMYLASEon 03-29-2022 Amylase [Catalytic activity/Vol] 29 U/L Normal 25-115 [facility] Comment on above: Performed By: #### L IPA, TERRENCE ####[facility] Mtraagxyye2297[address] [place], [place] [address]Dr. Chrissy Frazier CBC AUTO DIFFon 03-29-2022 BASO # 0.0 103/ul Normal 0.0-0.1 [facility] Comment on above: Performed By: #### C BC ####[facility] Swoxvhbftc37[address] [place], [place] [address]Dr. Chrissy Freddie Basophils/100 WBC (Bld) 0.2 % Normal 0.2-2.0 [facility] Comment on above: Performed By: #### C BC ####[facility] Mhymzqmtwv3239[address] [place], [place] [address]Dr. Chrissy Frazier EO # 0.0 103/ul Normal 0.0-0.7 [facility] Comment on above: Performed By: #### C BC ####[facility] Dxulurzrnl5448[address] [place], [place] [address]Dr. Chrissy Freddie Eosinophils/100 WBC (Bld) 0.4 % Critically low 0.9-7.0 [facility] Comment on above: Performed By: #### C BC ####[facility] Ebcffdvzeq174[address] [place], [place] [address]Dr. Chrissy Frazier Erythrocyte distribution width (RBC) [Ratio] 13.6 % Normal 11.0-15.0 [facility] Comment on above: Performed By: #### C BC ####[facility] Iqbeiuqxth05[address] [place] [address]Dr. Chrissy Frazier Hematocrit (Bld) [Volume fraction] 45.2 % Normal 42.0-54.0 [facility] Comment on above: Performed By: #### C BC ####[facility] Dlrlefwtjj2369[address] [place], [place] [address]Dr. Chrissy Frazier Hemoglobin (Bld) [Mass/Vol] 14.8 g/dL Normal 14.0-18.0 [facility] Comment on above: Performed By: #### C BC ####[facility] Ayvtchyrbq2963[address] [place], [place] [address]Dr. Chrissy Frazier IG # 0.03 10e3/ul Normal 0.00-0.03 [facility] Comment on above: Performed By: #### C BC ####[facility] Bffmqcawxv6556[address] [place], [place] [address]Dr. Tishrowan Frazier IG % 0.3 % Normal 0.0-0.5 [facility] Comment on above: Performed By: #### C BC ####[facility] Vofolcelkm6113[address] [place], [place] [address]Dr. Chrissy Frazier LYMPH # 2.0 103/ul Normal 1.2-3.8 [facility] Comment on above: Performed By: #### C BC ####[facility] Fitwreecyl4942[address] [place], [place] [address]Dr. Chrissy Frazier Lymphocytes/100 WBC (Bld) 18.3 % Critically low 20.5-60.0 [facility] Comment on above: Performed By: #### C BC ####[facility] Ygunbmdput[address] [place], [place] [address]Dr. Chrissy Frazier MANUAL DIFF REQ NO Normal [facility] Comment on above: Performed By: #### C BC ####[facility] Nfaazbdxuo9133[address] [place], [place] [address]Dr. Chrissy Frazier MCH (RBC) [Entitic mass] 28.5 pg Normal 25.9-34.0 [facility] Comment on above: Performed By: #### C BC ####[facility] Jupmvzmlpx6[address] [place] [address]DrNancy Frazier MCHC (RBC) [Mass/Vol] 32.7 g/dL Normal 29.9-35.2 [facility] Comment on above: Performed By: #### C BC ####[facility] Zvioukmcio77[address] [place] [address]DrNancy Frazier MCV (RBC) [Entitic vol] 87.1 fL Normal 80.0-94.0 [facility] Comment on above: Performed By: #### C BC ####[facility] Bfyrcuuxyo6201[address] [place], [place] [address]DrNancy Frazier MONO # 0.9 103/ul Critically high 0.3-0.8 [facility] Comment on above: Performed By: #### C BC ####[facility] Trvwsbpzhn7138[address] [place], [place] [address]DrNancy Frazier Monocytes/100 WBC (Bld) 8.6 % Normal 1.7-12.0 [facility] Comment on above: Performed By: #### C BC ####[facility] Lovzrtvkst8378[address] [place], [place] [address]DrNancy Frazier NEUT # 7.8 103/ul Critically high 1.4-6.5 [facility] Comment on above: Performed By: #### C BC ####[facility] Kyvcmalrmy6[address] [place], [place] [address]DrNancy Frazier Neutrophils/100 WBC (Bld) 72.2 % Normal 43.0-75.0 [facility] Comment on above: Performed By: #### C BC ####[facility] Xtdmrtkrxx1635[address] [place], [place] [address]DrNancy Frazier Platelet mean volume (Bld) [Entitic vol] 10.1 fL Normal 9.5-13.5 [facility] Comment on above: Performed By: #### C BC ####[facility] Ndkjokhlhr[address] [place], [place] [address]Dr. Chrissy Frazier PLT 329 103/ul Normal 150-450 [facility] Comment on above: Performed By: #### C BC ####[facility] Ayvygxpcrf9[address] [place] [address]Dr. Chrissy Frazier RBC 5.19 106/ul Normal 4.70-6.10 [facility] Comment on above: Performed By: #### C BC ####[facility] Xseuifnwai2412 [place] [address]Dr. Chrissy Frazier WBC 10.8 103/ul Normal 4.0-11.0 [facility] Comment on above: Performed By: #### C BC ####[facility] Dfqkyqnctn8821 [place] [address]Dr. Chrissy Freddie LIPASEon 03-29-2022 Lipase [Catalytic activity/Vol] 58.0 U/L Critically low 73.0-393.0 [facility] Comment on above: Performed By: #### L TERRENCE VICTORIA ####[facility] Gfrkljvpja[address] [place], [place] [address]Dr. Chrissy Freddie NM HEPATOBILIARY SCAN W EFon 03-29-2022 NM HEPATOBILIARY SCAN W EF Normal [facility] PROF 14(COMP METB)on 022 Albumin [Mass/Vol] 3.8 g/dL Normal 3.4-5.0 [facility] Comment on above: Performed By: #### C MP ####[facility] Ggtqxfrfio[address] [place] [address]DrNancy Winstonrowan Freddie Albumin/Globulin [Mass ratio] 1.0 {ratio} Normal [facility] Comment on above: Performed By: #### C MP ####[facility] Jamdvfmyvd6675 [place] [address]Dr. Chrissy Frazier ALP [Catalytic activity/Vol] 69 U/L Normal 46-116 [facility] Comment on above: Performed By: #### C MP ####[facility] Aiwgvezwif033[address] [place] [address]Dr. Chrissy Frazier ALT [Catalytic activity/Vol] 117 U/L Critically high 16-63 [facility] Comment on above: Performed By: #### C MP ####[facility] Ebyjhhvyzl66[address] [place] [address]Dr. Chrissy Frazier Anion gap [Moles/Vol] 16.7 mmol/L Normal [facility] Comment on above: Performed By: #### C MP ####[facility] Vqsmjzyede3[address] [place], [place] [address]Dr. Chrissy Frazier AST [Catalytic activity/Vol] 77 U/L Critically high 15-37 [facility] Comment on above: Performed By: #### C MP ####[facility] Tntysizqfo[address] [place], [place] [address]Dr. Chrissy Frazier Bilirubin [Mass/Vol] 1.5 mg/dL Critically high 0.2-1.0 [facility] Comment on above: Performed By: #### C MP ####[facility] Bukrigtqmh[address] [place], [place] [address]Dr. Chrissy Frazier Calcium [Mass/Vol] 8.1 mg/dL Critically low 8.5-10.1 [facility] Comment on above: Performed By: #### C MP ####[facility] Xerfmeztdc[address] [place], [place] [address]Dr. Chrissy Freddie Chloride [Moles/Vol] 101 mmol/L Normal 98-107 [facility] Comment on above: Performed By: #### C MP ####[facility] Ldwppsogzk7[address] [place], [place] [address]Dr. Chrissy Frazier CO2 [Moles/Vol] 24.5 mmol/L Normal 21.0-32.0 [facility] Comment on above: Performed By: #### C MP ####[facility] Xhcvkergkx17[address] [place], [place] [address]Dr. Chrissy Frazier Creatinine [Mass/Vol] 1.17 mg/dL Normal 0.70-1.30 [facility] Comment on above: Performed By: #### C MP ####[facility] Ukxigaqhdr[address] [place], [place] [address]Dr. Chrissy Freddie EGFR-AF MALIAN >60 Normal >=60 [facility] Comment on above: Performed By: #### C MP ####[facility] Rwvxpbokqf26[address] [place] [phone]. Chrissy Frazier EGFR-NON AF MALIAN >60 Normal >=60 [facility] Comment on above: Performed By: #### C MP ####[facility] Sxklwwhhyb8879 [place] [phone]. Chrissy Frazier Globulin (S) [Mass/Vol] 3.9 g/dL Normal [facility] Comment on above: Performed By: #### C MP ####[facility] Lzjeixzzry5735 [place] [address]Dr. Chrissy Frazier Glucose [Mass/Vol] 104 mg/dL Normal 74-106 [facility] Comment on above: Performed By: #### C MP ####[facility] Rpiakoaqyo4913 [place] [address]Dr. Chrissy Frazier Potassium [Moles/Vol] 3.2 mmol/L Critically low 3.5-5.1 [facility] Comment on above: Performed By: #### C MP ####[facility] Rqszbqocys65[address] [place], [place] [address]Dr. Chrissy Frazier Protein [Mass/Vol] 7.7 g/dL Normal 6.4-8.2 [facility] Comment on above: Performed By: #### C MP ####[facility] Kvjjwfjadu6[address] [place], [place] [address]Dr. Chrissy Frazier Sodium [Moles/Vol] 139 mmol/L Normal 136-145 [facility] Comment on above: Performed By: #### C MP ####[facility] Bcjghshpwy7571 [place] [address]Dr. Chrissy Frazier Urea nitrogen [Mass/Vol] 11.0 mg/dL Normal 7.0-18.0 [facility] Comment on above: Performed By: #### C MP ####[facility] Ppncyotyzv7884 [place] [address]Dr. Chrissy Frazier Urea nitrogen/Creatinine [Mass ratio] 9.4 mg/mg Normal [facility] Comment on above: Performed By: #### C MP ####[facility] Hxaezihyjf2078 [place] [address]DrNancy Frazier US SINGLE QUAD RT UPPERon US SINGLE QUAD RT UPPER Normal [facility] AMMONIAon 03-28-2022 Ammonia (P) [Moles/Vol] 12 umol/L Normal 11-32 [facility] Comment on above: Performed By: #### A MM ####[facility] Zbchkfxuoe[address] [place], [place] [address]Dr. Chrissy Frazier CBC AUTO DIFFon 03-28-2022 BASO # 0.0 103/ul Normal 0.0-0.1 [facility] Comment on above: Performed By: #### C BC ####[facility] Joadfmsnjl9357[address] [place], [place] [address]DrNancy Frazier Basophils/100 WBC (Bld) 0.1 % Critically low 0.2-2.0 [facility] Comment on above: Performed By: #### C BC ####[facility] Vxokcfngcp38[address] [place], [place] [address]DrNancy Frazier EO # 0.0 103/ul Normal 0.0-0.7 [facility] Comment on above: Performed By: #### C BC ####[facility] Eosjirjcok85[address] [place], [place] [address]DrNancy Frazier Eosinophils/100 WBC (Bld) 0.0 % Critically low 0.9-7.0 [facility] Comment on above: Performed By: #### C BC ####[facility] Ltowglopzb2453[address] [place], [place] [address]DrNancy Frazier Erythrocyte distribution width (RBC) [Ratio] 14.0 % Normal 11.0-15.0 [facility] Comment on above: Performed By: #### C BC ####[facility] Jnxutnxxhy15[address] [place], [place] [address]DrNancy Frazier Hematocrit (Bld) [Volume fraction] 44.2 % Normal 42.0-54.0 [facility] Comment on above: Performed By: #### C BC ####[facility] Dezitakdtp64[address] [place], [place] [address]DrNancy Frazier Hemoglobin (Bld) [Mass/Vol] 14.7 g/dL Normal 14.0-18.0 [facility] Comment on above: Performed By: #### C BC ####[facility] Grdsznajph2965 [place] [address]DrNancy Frazier IG # 0.10 10e3/ul Critically high 0.00-0.03 [facility] Comment on above: Performed By: #### C BC ####[facility] Udyjegwawl5276 [place] [address]DrNancy Frazier IG % 0.5 % Normal 0.0-0.5 [facility] Comment on above: Performed By: #### C BC ####[facility] Gsudhibmpj1599[address] [place], [place] [address]DrNancy Frazier LYMPH # 2.6 103/ul Normal 1.2-3.8 [facility] Comment on above: Performed By: #### C BC ####[facility] Ftjzoeigbf89[address] [place], [place] [address]DrNancy Frazier Lymphocytes/100 WBC (Bld) 13.8 % Critically low 20.5-60.0 [facility] Comment on above: Performed By: #### C BC ####[facility] Ldefmxvuss[address] [place], [place] [address]DrNancy Frazier MANUAL DIFF REQ NO Normal [facility] Comment on above: Performed By: #### C BC ####[facility] Zhfgriboqu6[address] [place], [place] [address]DrNancy Frazier MCH (RBC) [Entitic mass] 29.0 pg Normal 25.9-34.0 [facility] Comment on above: Performed By: #### C BC ####[facility] Vdrihnolbh2515[address] [place], [place] [address]DrNancy Frazier MCHC (RBC) [Mass/Vol] 33.3 g/dL Normal 29.9-35.2 [facility] Comment on above: Performed By: #### C BC ####[facility] Xfeopzbbuz8863[address] [place], [place] [address]Dr. Chrissy Frazier MCV (RBC) [Entitic vol] 87.2 fL Normal 80.0-94.0 [facility] Comment on above: Performed By: #### C BC ####[facility] Nnzusxfkpl9268 [place] [phone]. Winstonrowan Frazier MONO # 1.1 103/ul Critically high 0.3-0.8 [facility] Comment on above: Performed By: #### C BC ####[facility] Zwaxyfhdvp9207 [place] [address]DrNancy Frazier Monocytes/100 WBC (Bld) 5.9 % Normal 1.7-12.0 [facility] Comment on above: Performed By: #### C BC ####[facility] Pibfjqxrlj4684[address] [place], [place] [address]DrNancy Winstonrowan Frazier NEUT # 15.1 103/ul Critically high 1.4-6.5 [facility] Comment on above: Performed By: #### C BC ####[facility] Diqrgjkict4[address] [place], [place] [address]DrNancy Frazier Neutrophils/100 WBC (Bld) 79.7 % Critically high 43.0-75.0 [facility] Comment on above: Performed By: #### C BC ####[facility] Xqnhwxtyhr2883[address] [place], [place] [address]DrNancy Frazier Platelet mean volume (Bld) [Entitic vol] 10.3 fL Normal 9.5-13.5 [facility] Comment on above: Performed By: #### C BC ####[facility] Mtejfiijwj8[address] [place], [place] [address]DrNancy Frazier PLT 358 103/ul Normal 150-450 [facility] Comment on above: Performed By: #### C BC ####[facility] Ueovzxlofi[address] [place], [place] [address]DrNancy Frazier RBC 5.07 106/ul Normal 4.70-6.10 [facility] Comment on above: Performed By: #### C BC ####[facility] Gtzqfzhweu[address] [place], [place] [address]DrNancy Frazier WBC 18.9 103/ul Critically high 4.0-11.0 [facility] Comment on above: Performed By: #### C BC ####[facility] Vwazgliyhb8173[address] [place], [place] [address]Dr. Chrissy Frazier PROF 14(COMP METB)on 022 Albumin [Mass/Vol] 3.9 g/dL Normal 3.4-5.0 [facility] Comment on above: Performed By: #### C MP ####[facility] Fhcbnylqkr9217[address] [place], [place] [address]Dr. Chrissy Frazier Albumin/Globulin [Mass ratio] 1.1 {ratio} Normal [facility] Comment on above: Performed By: #### C MP ####[facility] Sinewzvblu023[address] [place], [place] [address]Dr. Chrissy Frazier ALP [Catalytic activity/Vol] 65 U/L Normal 46-116 [facility] Comment on above: Performed By: #### C MP ####[facility] Zlfnuwvnwi4584[address] [place], [place] [address]Dr. Chrissy Frazier ALT [Catalytic activity/Vol] 46 U/L Normal 16-63 [facility] Comment on above: Performed By: #### C MP ####[facility] Eiscwioavs8827[address] [place], [place] [address]Dr. Chrissy Frazier Anion gap [Moles/Vol] 13.2 mmol/L Normal [facility] Comment on above: Performed By: #### C MP ####[facility] Uyohevjbgx2985[address] [place], [place] [address]Dr. Chrissy Frazier AST [Catalytic activity/Vol] 33 U/L Normal 15-37 [facility] Comment on above: Performed By: #### C MP ####[facility] Mdumoaqeyy[address] [place], [place] [address]Dr. Chrissy Frazier Bilirubin [Mass/Vol] 0.8 mg/dL Normal 0.2-1.0 [facility] Comment on above: Performed By: #### C MP ####[facility] Dchacrgxwy5[address] [place], [place] [address]Dr. Chrissy Frazier Calcium [Mass/Vol] 8.1 mg/dL Critically low 8.5-10.1 [facility] Comment on above: Performed By: #### C MP ####[facility] Tyzlyitfik5833 [place] [address]Dr. Chrissy Frazier Chloride [Moles/Vol] 102 mmol/L Normal 98-107 [facility] Comment on above: Performed By: #### C MP ####[facility] Fpfmpphgkr0322 [place] [address]Dr. Chrissy Frazier CO2 [Moles/Vol] 24.0 mmol/L Normal 21.0-32.0 [facility] Comment on above: Performed By: #### C MP ####[facility] Fonhlqtsit35[address] [place], [place] [address]Dr. Chrissy Freddie Creatinine [Mass/Vol] 1.26 mg/dL Normal 0.70-1.30 [facility] Comment on above: Performed By: #### C MP ####[facility] Fiqbbqkzlv99[address] [place], [place] [address]Dr. Chrissy Freddie EGFR-AF MALIAN >60 Normal >=60 [facility] Comment on above: Performed By: #### C MP ####[facility] Pigedocaex15[address] [place], [place] [address]Dr. Tishrowan Freddie EGFR-NON AF MALIAN >60 Normal >=60 [facility] Comment on above: Performed By: #### C MP ####[facility] Biizmmdhga3450 [place] [address]Dr. Chrissy Frazier Globulin (S) [Mass/Vol] 3.7 g/dL Normal [facility] Comment on above: Performed By: #### C MP ####[facility] Usarqyrcvk9464 [place] [address]Dr. Chrissy Frazier Glucose [Mass/Vol] 119 mg/dL Critically high 74-106 [facility] Comment on above: Performed By: #### C MP ####[facility] Kauooboxtm5767 [place] [address]Dr. Chrissy Frazier Potassium [Moles/Vol] 3.2 mmol/L Critically low 3.5-5.1 [facility] Comment on above: Performed By: #### C MP ####[facility] Iovhgdffnn3607 [place] [address]Dr. Chrissy Frazier Protein [Mass/Vol] 7.6 g/dL Normal 6.4-8.2 [facility] Comment on above: Performed By: #### C MP ####[facility] Oziutmoecp5063 [place] [address]Dr. Chrissy Frazier Sodium [Moles/Vol] 136 mmol/L Normal 136-145 [facility] Comment on above: Performed By: #### C MP ####[facility] Ddtohfdfho7275 [place] [address]Dr. Chrissy Frazier Urea nitrogen [Mass/Vol] 14.0 mg/dL Normal 7.0-18.0 [facility] Comment on above: Performed By: #### C MP ####[facility] Mbghhbsptn0378 [place] [address]Dr. Chrissy Frazier Urea nitrogen/Creatinine [Mass ratio] 11.1 mg/mg Normal [facility] Comment on above: Performed By: #### C MP ####[facility] Nouqofqtvw8446 [place] [address]Dr. Chrissy Frazier CBC W MANUAL DIFFon 03-27-20 22 ATYPICAL LYMPH # Normal [facility] Comment on above: Performed By: #### C BCMAN ####[facility] Jrxenswjhi0565 [place] [address]Dr. Chrissy Freddie ATYPICAL LYMPH % Normal [facility] Comment on above: Performed By: #### C BCMAN ####[facility] Hdxnjfbgcv3611 [place] [phone]. Chrissy Frazier BAND # 0.0 103/ul Normal 0.0-0.3 [facility] Comment on above: Performed By: #### C BCMAN ####[facility] Oxvlhodqjf6771 [place] [address]Dr. Chrissy Frazier BAND % 0 % Normal 0-5 [facility] Comment on above: Performed By: #### C BCMAN ####[facility] Mcdxbvlfod0140 [place] [address]Dr. Chrissy Frazier BASOM # 0.00 103/ul Normal 0.00-0.10 [facility] Comment on above: Performed By: #### C BCMAN ####[facility] Bizujgiuxi5897 [place] [address]Dr. Chrissy Frazier BASOM % 0.0 % Critically low 0.2-2.0 [facility] Comment on above: Performed By: #### C BCMAN ####[facility] Evvpntzwbl4207 [place] [address]Dr. Chrissy Frazier BLAST # Normal [facility] Comment on above: Performed By: #### C BCLEANDRO ####[facility] Vxgfelgerm[address] [place], [place] [address]Dr. Chrissy Frazier BLAST % Normal [facility] Comment on above: Performed By: #### C BCLEANDRO ####[facility] Natwpbtces[address] [place], [place] [address]Dr. Chrissy Frazier CORRECTED WBC Normal 4.0-11.0 [facility] Comment on above: Performed By: #### C BCLEANDRO ####[facility] Anvqjqqzwr[address] [place], [place] [address]Dr. Chrissy Frazier EOS # 0.00 103/ul Normal 0.00-0.70 [facility] Comment on above: Performed By: #### C BCLEANDRO ####[facility] Cpkluegwyj2935[address] [place], [place] [address]Dr. Chrissy Frazier EOS% 0.0 % Critically low 0.9-7.0 [facility] Comment on above: Performed By: #### C BCLEANDRO ####[facility] Zrittshsyg3[address] [place], [place] [address]Dr. Chrissy Frazier HCT 47.3 % Normal 42.0-54.0 [facility] Comment on above: Performed By: #### C BCMAN ####[facility] Zwjlsdndcg32[address] [place], [place] [address]Dr. Chrissy Frazier HGB 16.4 g/dl Normal 14.0-18.0 [facility] Comment on above: Performed By: #### C BCMAN ####[facility] Ioijtdqbam7416 [place], [place] [address]Ks. Chrissy Frazier LYMPHM # 2.31 103/ul Normal 1.20-3.80 [facility] Comment on above: Performed By: #### C ANTONETTE ####[facility] Cfywhlozgs7244 [place], [place] [address]Uu. Chrissy Frazier LYMPHM% 9.0 % Critically low 20.5-60.0 [facility] Comment on above: Performed By: #### C ANTONETTE ####[facility] Dkxgwgvgig3296 [place] [phone]. Chrissy Frazier MCH 28.6 pg Normal 25.9-34.0 [facility] Comment on above: Performed By: #### C ANTONETTE ####[facility] Yvpxmsbisz9061 [place] [phone]. Chrissy Frazier MCHC 34.7 g/dl Normal 29.9-35.2 [facility] Comment on above: Performed By: #### C ANTONETTE ####[facility] Wuqiwgouyu3062 [place] [phone]. Chrissy Frazier MCV 82.4 fL Normal 80.0-94.0 [facility] Comment on above: Performed By: #### C ANTONETTE ####[facility] Uefpadixxy6408 [place] [phone]. Chrissy Frazier METAMYELOCYTE # Normal [facility] Comment on above: Performed By: #### C ANTONETTE ####[facility] Jeoljpjthf6505 [place] [phone]. Chrissy Frazier METAMYELOCYTE % Normal [facility] Comment on above: Performed By: #### C ANTONETTE ####[facility] Cbbnzjssem8428 [place] [phone]. Chrissy Frazier MONOM# 3.85 103/ul Critically high 0.30-0.80 [facility] Comment on above: Performed By: #### C ANTONETTE ####[facility] Umlorjxmry9896 [place] [phone]. Chrissy Frazier MONOM% 15.0 % Critically high 1.7-12.0 [facility] Comment on above: Performed By: #### C ANTONETTE ####[facility] Xzwkuhrtle4773 [place] [phone]. Chrissy Frazier MPV 10.6 fL Normal 9.5-13.5 [facility] Comment on above: Performed By: #### C ANTONETTE ####[facility] Kgpkdsuank8848 [place] [phone]. Chrissy Frazier MYELOCYTE # Normal [facility] Comment on above: Performed By: #### C ANTONETTE ####[facility] Oqdfwwwzsq7640 [place] [phone]. Chrissy Frazier MYELOCYTE % Normal [facility] Comment on above: Performed By: #### C ANTONETTE ####[facility] Zuzhbecjrv9475 [place] [phone]. Chrissy Frazier NRBC Normal [facility] Comment on above: Performed By: #### C ANTONETTE ####[facility] Iarzvxluze2902 [place] [phone]. Chrissy Frazier PLT 471 103/ul Critically high 150-450 [facility] Comment on above: Performed By: #### C ANTONETTE ####[facility] Lvykaipcae8777 [place] [phone]. Chrissy Frazier RBC 5.74 106/ul Normal 4.70-6.10 [facility] Comment on above: Performed By: #### C ANTONETTE ####[facility] Wxqdrlqimv5154 [place] [phone]. Chrissy Frazier RDW 13.7 % Normal 11.0-15.0 [facility] Comment on above: Performed By: #### C ANTONETTE ####[facility] Uwncacfhdv7929 [place] [phone]. Chrissy Frazier SEG # 19.53 103/ul Critically high 1.40-6.50 [facility] Comment on above: Performed By: #### C ANTONETTE ####[facility] Tkosbflvvi9096 [place] [phone]. Chrissy Frazier SEG % 76.0 % Critically high 43.0-75.0 [facility] Comment on above: Performed By: #### C BCMAN ####[facility] Rhithuckvu1937 [place] [address]Dr. Chrissy Frazier TOXIC GRANULATION SLIGHT Normal [facility] Comment on above: Result Comment: few vacoules Performed By: #### C BCMAN ####[facility] Klwanurzce7913 [place] [address]Dr. Chrissy Frazier WBC 25.7 103/ul Critically high 4.0-11.0 [facility] Comment on above: Performed By: #### C ANTONETTE ####[facility] Yybgstwqrz[address] [place], [place] [address]Dr. Chrissy Freddie LACTATE/LACTIC ACIDon 2021 Lactate [Moles/Vol] 2.4 mmol/L Critically high 0.4-1.9 [facility] Comment on above: Performed By: #### L ACT ####[facility] Mghegtjryq9039[address] [place], [place] [address]Dr. Chrissy Frazier Lactate [Moles/Vol] 3.5 mmol/L Critically high 0.4-1.9 [facility] Comment on above: Performed By: #### L ACT ####[facility] Yhtdwrmyfv6[address] [place], [place] [address]Dr. Chrissy Frazier LIPASEon 03-27-2022 Lipase [Catalytic activity/Vol] 43.0 U/L Critically low 73.0-393.0 [facility] Comment on above: Performed By: #### C MP, LIPA ####[facility] Wiiixizdbk4766 [place] [address]Dr. Chrissy Frazier PROF 14(COMP METB)on 022 Albumin [Mass/Vol] 4.7 g/dL Normal 3.4-5.0 [facility] Comment on above: Performed By: #### C MP, LIPA ####[facility] Acghplyilg1902[address] [place], [place] [address]Dr. Tishrowan Frazier Albumin/Globulin [Mass ratio] 1.1 {ratio} Normal [facility] Comment on above: Performed By: #### C MP, LIPA ####[facility] Ylteobendt1706 [place] [address]Dr. Chrissy Frazier ALP [Catalytic activity/Vol] 69 U/L Normal 46-116 [facility] Comment on above: Performed By: #### C MP, LIPA ####[facility] Hcjsnjhywd0848 [place] [address]Dr. Chrissy Frazier ALT [Catalytic activity/Vol] 47 U/L Normal 16-63 [facility] Comment on above: Performed By: #### C MP, LIPA ####[facility] Jvxbzffbbz7736 [place] [address]Dr. Chrissy Frazier Anion gap [Moles/Vol] 23.2 mmol/L Normal [facility] Comment on above: Performed By: #### C MP, LIPA ####[facility] Gxsrxpvsfw9728[address] [place], [place] [address]Dr. Chrissy Frazier AST [Catalytic activity/Vol] 23 U/L Normal 15-37 [facility] Comment on above: Performed By: #### C MP, LIPA ####[facility] Pnyrhimrlu5649[address] [place], [place] [address]Dr. Chrissy Frazier Bilirubin [Mass/Vol] 0.7 mg/dL Normal 0.2-1.0 [facility] Comment on above: Performed By: #### C MP, LIPA ####[facility] Ornqdqkfzf5212[address] [place], [place] [address]Dr. Chrissy Frazier Calcium [Mass/Vol] 9.2 mg/dL Normal 8.5-10.1 [facility] Comment on above: Performed By: #### C MP, LIPA ####[facility] Vyvvwsoxwa2149 [place] [address]Dr. Chrissy Freddie Chloride [Moles/Vol] 97 mmol/L Critically low 98-107 [facility] Comment on above: Performed By: #### C MP, LIPA ####[facility] Fjavtxzqxe3276[address] [place], [place] [address]Dr. Chrissy Freddie CO2 [Moles/Vol] 18.2 mmol/L Critically low 21.0-32.0 [facility] Comment on above: Performed By: #### C MP, LIPA ####[facility] Ptdhmvstuf9[address] [place], [place] [address]Dr. Chrissy Frazier Creatinine [Mass/Vol] 1.77 mg/dL Critically high 0.70-1.30 [facility] Comment on above: Performed By: #### C MP, LIPA ####[facility] Zjuazilzmv74[address] [place], [place] [address]Dr. Chrissy Frazier EGFR-AF MALIAN 54 mL/min/1.73m2 Critically low >=60 [facility] Comment on above: Performed By: #### C MP, LIPA ####[facility] Gvgudoluxo47[address] [place], [place] [address]Dr. Chrissy Freddie EGFR-NON AF MALIAN 45 mL/min/1.73m2 Critically low >=60 [facility] Comment on above: Performed By: #### C MP, LIPA ####[facility] Csaoggxdhp55[address] [place], [place] [address]Dr. Chrissy Freddie Globulin (S) [Mass/Vol] 4.4 g/dL Normal [facility] Comment on above: Performed By: #### C MP, LIPA ####[facility] Gwxsgjxugi94[address] [place], [place] [address]Dr. Chrissy Frazier Glucose [Mass/Vol] 131 mg/dL Critically high 74-106 [facility] Comment on above: Performed By: #### C MP, LIPA ####[facility] Bmajezywjh89[address] [place], [place] [address]Dr. Chrissy Frazier Potassium [Moles/Vol] 3.4 mmol/L Critically low 3.5-5.1 [facility] Comment on above: Performed By: #### C MP, LIPA ####[facility] Iciwjcyuno[address] [place], [place] [address]Dr. Chrissy Freddie Protein [Mass/Vol] 9.1 g/dL Critically high 6.4-8.2 [facility] Comment on above: Performed By: #### C MP, LIPA ####[facility] Byyhacvldb1733 [place], [place] [address]Ow. Chrissy Frazier Sodium [Moles/Vol] 135 mmol/L Critically low 136-145 Th [facility] Comment on above: Performed By: #### C MANA, LIPA ####[facility] [id number] [place], [place] [address]Vm. Chrissy Frazier Urea nitrogen [Mass/Vol] 19.0 mg/dL Critically high 7.0-18.0 [facility] Comment on above: Performed By: #### C MANA, LIPA ####[facility] [address] [place], [place] [address]In. Chrissy Frazier Urea nitrogen/Creatinine [Mass ratio] 10.7 mg/mg Normal [facility] Comment on above: Performed By: #### C MANA, OSWALD ####[facility] [address] [place], [place] [address]Nb. Chrissy Frazier BMPon 11-03-2020 Anion gap [Moles/Vol] 14 mmol/L Normal 6-16 [facility] Comment on above: Performed By: #### 2 [id number], [id number], [id number] #### [facility] [address] [place] [address] Calcium [Mass/Vol] 9.0 mg/dL Normal 8.9-11.1 [facility] Comment on above: Performed By: #### 2 [id number], [id number], [id number] #### [facility] [address] [place] [address] Chloride [Moles/Vol] 104 mmol/L Normal 101-111 [facility] Comment on above: Performed By: #### 2 [id number], [id number], [id number] #### [facility] [address] [place] [address] CO2 [Moles/Vol] 21 mmol/L Normal 21-31 [facility] Comment on above: Performed By: #### 2 [id number], [id number], [id number] #### [facility] [address] [place] [address] Creatinine [Mass/Vol] 1.3 mg/dL Normal 0.5-1.3 [facility] Comment on above: Performed By: #### 2 [id number], [id number], [id number] #### [facility] [address] [place] [address] Glucose [Mass/Vol] 111 mg/dL Normal 55-199 [facility] Comment on above: Result Comment: If t his glucose result represents a fasting glucose, interpretation should refer to the following reference range: 55-99 mg/dL Performed By: #### 2 [id number], [id number], [id number] #### [facility] [address] [place] [address] Potassium [Moles/Vol] 2.9 mmol/L Low 3.5-5.3 [facility] Comment on above: Performed By: #### 2 528757, [id number], [id number] #### [facility] [address] [place] [address] Sodium [Moles/Vol] 136 mmol/L Normal 135-145 [facility] Comment on above: Performed By: #### 2 453183, [id number], [id number] #### [facility] [address] [place] [address] Urea nitrogen [Mass/Vol] 14 mg/dL Normal 5-21 [facility] Comment on above: Performed By: #### 2 443763, [id number], [id number] #### [facility] [address] [place] [address] Urea nitrogen/Creatinine [Mass ratio] 11 No Units Normal 10-20 [facility] Comment on above: Performed By: #### 2 766561, [id number], [id number] #### [facility] [address] [place] [address] Lipase Levelon 11-03-2020 Lipase [Catalytic activity/Vol] 66 unit/L High 13-58 [facility] Comment on above: Performed By: #### 2 [id number], [id number], [id number] #### [facility] [address] [place] [address] Physician Orderon 11-03-2020 Physician Order [id number] 3#1.00CD:127 Normal [facility] eGFRon 11-03-2020 GFR/1.73 sq M predicted among blacks MDRD (S/P/Bld) [Vol rate/Area] mL/min/{1.73_m2} Normal >=59 [facility] Comment on above: Order Comment: Order added by Discern Expert. Result Comment: eGFR is race adjusted. AA=. Performed By: #### 2 [id number], [id number], [id number] #### [facility] [address] [place] [address] GFR/1.73 sq M predicted among non-blacks MDRD (S/P/Bld) [Vol rate/Area] mL/min/{1.73_m2} Normal >=59 [facility] Comment on above: Order Comment: Order added by Discern Expert. Result Comment: Coil Tester lindsay kidney disease could be indicated at eGFR's of less than 60 mL/min/1.73m2. Kidney failure is indicated at less than 15 mL/min/1.73m2. Performed By: #### 2 [id number], [id number], [id number] #### [facility] [address] [place] [address] Encounters Encounter Date Encounter Type Care Provider Facility Start: 03-30-2023 ambulatory Luis Angel valenciaty:[facility] Start: 01-03-2023 End: 01-04-[address] MELODY MARIO . Facility:[facility] Start: 01-03-2023 End: 01-04-2023 ambulatory RAQUEL BANKS Facility:[facility] Start: 12-29-2022 End: 12-30-[address] MELODY MARIO . Facility:[facility] Start: 12-13-2022 End: 12-14-2022 ambulatory [facility] Start: 11-24-2022 End: 11-24-2022 ambulatory [facility] Start: 11-16-2022 End: 11-17-[address] MELODY MARIO . Facility:[facility] Start: 10-23-2022 End: 10-24-[address] MELODY MARIO . Facility:[facility] Start: 10-22-2022 End: 10-22-[address] LOREN KEBEDE . Facility:[facility] Start: 10-22-2022 End: 10-22-[address] LOREN KEBEDE . Facility:[facility] Start: 09-02-2022 End: 09-03-[address] MELODY MARIO . Facility:[facility] Start: 07-06-2022 End: 07-07-[address] MELODY MARIO . Facility:[facility] Start: 07-01-2022 End: 07-05-[address] MELODY MARIO . Facility:[facility] Start: 04-23-2022 End: 04-23-[address] MELODY MARIO . Facility:[facility] Start: 04-04-2022 End: 04-04-2022 ambulatory ODELL SOLOMONJAMEE Facility:[facility] Start: 03-27-2022 End: 03-31-[address] MELODY MARIO . Facility:[facility] Payers Date Payer Category Payer Self-pay 1990 Unknown [id number] 1990 Unknown [id number] 1990 Unknown [id number] .16.84 [id number] 1990 Unknown [id number] .16.84 0.1.731161.3.579.2.593 1990 Unknown [id number] .16.84 0.1.354194.3.579.2.593 1990 Unknown [id number] .16.84 0.1.903650.3.579.2.593 1990 Unknown [id number] 2.16.84 0.1.333952.3.579.2.593 1990 Unknown [id number] 2.16.84 0.1.483518.3.579.2.593 1990 Unknown [id number] 2.16.84 0.1.835537.3.579.2.593 1990 Unknown [id number] 2.16.84 0.1.121600.3.579.2.593 1990 Unknown [id number] 2.16.84 0.1.433983.3.579.2.593 1990 Unknown [id number] 2.16.84 0.1.635872.3.579.2.593 1990 Unknown [id number] 2.16.84 0.1.705916.3.579.2.593 1959 Private Health Insurance [id number] Unknown [id number] 2.16.8 [id number] Progress note 11-24-2022 Note Date & Type Note Facility 11-24-2022 Note [facility]iology [facility] No te Chief Complaint: new patient for abnormal stress test HPI: Terence Montero is a 32 y.o. male With a past medical history including cannabinoid hyperemesis syndrome and sleep apnea. Patient was referred to cardiology for a reports of abnormal stress test. Stress test was performed because patient had an isolated episode of chest pain with shortness of breath. Patient does not recall what he was doing at the time of episode. He denies recurrence of chest pain. He denies any shortness of breath. He denies any lower extremity edema, orthopnea, or paroxysmal nocturnal dyspnea. He denies any near-syncope or syncope. Patient denies any previous history of CVA, PVD, DM, HTN, Depressed LVEF, and CAD. He does report that his father had a fatal NE at the age of 54. Stress test was a treadmill stress test. Patient excerxised for 12.5 minutes, and no ischemic changes were noted on EKG. However, he was noted to have T wave inversions in the anterolateral leads, which were not present on EKG several months ago. Cardiology ROS: GENERAL: Denies fever, chills, night sweats, weight loss. HEENT: Denies changes in vision, photophobia, changes in hearing, epistaxis, oral bleeding. CARDIOVASCULAR: Denies chest pain, exertional dyspnea, orthopnea/PND, lower extremity edema, palpitations, lightheadedness/dizziness. RESPIRATORY: Denies SOB, coughing, wheezing GI: Denies abdominal pain, nausea/vomiting, heartburn, melena/hematochezia. RENAL: Denies dysuria, hematuria, flank pain. MSK: Denies muscle weakness/pain, arthralgias/joint pain. NEUROLOGIC: Denies LOC, weakness, numbness, headaches. SKIN: Denies abnormal rashes or bleeding. PSYCH: Denies significant anxiety, depression, sleep disturbances. Past Medical History He has a past medical history of Cannabinoid hyperemesis syndrome and Sleep apnea. Surgical History He has a past surgical history that includes Shoulder surgery; Knee surgery; and CT heart coronary angiogram (12/13/2022). Social History He reports that he has never smoked. He has never used smokeless tobacco. He reports that he does not currently use alcohol. He reports current drug use. Drug: Marijuana. Family History Family History Problem Relation Name Age of Onset Coronary artery disease Father Heart attack Father 54 Medications Current Outpatient Medications on File Prior to Visit Medication Sig Dispense Refill cloNIDine (Catapres) 0.1 mg tablet Take 0.1 mg by mouth in the morning and 0.1 mg in the evening. metoclopramide (Reglan) 10 mg tablet Take 10 mg by mouth in the morning and 10 mg at noon and 10 mg in the evening and 10 mg before bedtime. pantoprazole (ProtoNix) 40 mg EC tablet Take 40 mg by mouth in the morning. No current facility-administered medications on file prior to visit. Allergies Penicillins and Sulfamethoxazole-trimethoprim Physical Exam VITAL SIGNS: BP 113/69 (BP Location: Left arm, Patient Position: Sitting) Pulse 85 Ht 1.778 m (5' 10 ) Wt 129 kg (285 lb) SpO2 97% BMI 40.89 kg/m??? Constitutional: Well developed, Well nourished, No acute distress, Non-toxic appearance. HENT: Normocephalic, Atraumatic, Bilateral external ears have normal appearance, Bilateral TMs clear, Oropharynx moist, No oral or pharyngeal exudates, Nose appears normal, nares are patent. Eyes: PERRLA, EOMI, Conjunctiva normal, No discharge. Neck: Normal range of motion, No tenderness, Supple, No stridor. No cervical lymphadenopathy noted. Cardiovascular: Normal heart rate, Normal rhythm, No murmurs, No rubs, No gallops. Thorax & Lungs: Normal breath sounds, No respiratory distress, No wheezing, No chest tenderness to palpation. Abdomen: Bowel sounds normal, Soft, Nontender, No masses, No pulsatile masses. Skin: Warm, Dry, No erythema, No rash. Back: No tenderness, No CVA tenderness. Extremities: Intact distal pulses, No edema, No tenderness, No cyanosis, No clubbing. Musculoskeletal: Good range of motion in all major joints with 5/5 muscle strength in all muscle groups, No tenderness to palpation or major deformities noted. Neurologic: Alert & oriented x 3, Normal motor function in all major muscle groups, Normal sensory function to all major dermatomes, No focal deficits noted. Psychiatric: Affect normal, Judgment normal, Mood normal. Impression: -Episode of chest pain, abnormal EKG: Patient denies recurrence of chest pain. No ischemic changes noted on stress test. However, patient noted to have T wave inversions on EKG -Family history of premature coronary artery disease Plan: -Given episode of chest pain, abnormal EKG, and strong family history, will order CTA coronary to assess coronary anatomy and evaluate for stenosis. -We will order echocardiogram to assess LVEF, wall motion, valvular function -Further recommendations to follow -Optimize medical management -Aggressive risk factor modification -Plan (more content not included)... [facility] Progress note 11-24-2022 Note Date & Type Note Facility 11-24-2022 Note New patient here to establish care. Ref from Dr. Mario for abnormal stress test. He says test was ordered for isolated episode of chest pain w/ SOB. RINA is untreated. He does get lightheaded sometimes. Says he has CHS- cannabinoid hyperemesis syndrome. Review of Systems Cardiovascular: Positive for chest pain (1 episode w/ SOB). Respiratory: Positive for shortness of breath (1 episode w/ chest pain). Gastrointestinal: Positive for vomiting. Neurological: Positive for light-headedness. All other systems reviewed and are negative. [facility] Summary Purpose Family History No Family History Records FoundNo Family History Records FoundNo Family History Records FoundNo Family History Records Found Advance Directives No Advanced Directives Records FoundNo Advanced Directives Records FoundNo Advanced Directives Records FoundNo Advanced Directives Records Found Additional Source Comments (unrecognized sect ion and content) No Status Records FoundNo Status Records FoundNo Status Records FoundNo Status Records Found INFORMATION SOURCE (unrecogn ized section and content) DATE CREATED AUTHOR 11/04/2020 [facility] DATE CREATED AUTHOR AUTHOR'S ORGANIZ ATION 01/08/2023 [facility] DATE CREATED AUTHOR AUTHOR'S ORGANIZ ATION 02/07/2023 [facility] DATE CREATED AUTHOR AUTHOR'S ORGANIZ ATION 04/01/2023 [facility] FOR RECORDS PERTAINING TO PATIENTS WHO ARE OR HAVE BEEN ENROLLED IN A CHEMICAL DEPENDENCY/SUBSTANCEABUSE PROGRAM, SOME INFORMATION MAY BE OMITTED. This clinical summary was aggregated from multiple sources. Caution should be exercised in using it in the provision of clinical care. This summary normalizes information from multiple sources, and as a consequence, information in this document may materially change the coding, format and clinical context of patient data. In addition, data may be omitted in some cases. CLINICAL DECISIONS SHOULD BE BASED ON THE PRIMARY CLINICAL RECORDS. [employer] [facility]. provides no warranty or guarantee of the accuracy or completeness of information in this document.
[2023-11-24 17:11] LABS: Basophils Absolute Auto 0.1 10^3/uL (0.0-0.1); Basophils Percent Auto 0.3 % (0.2-2.0); Eosinophils Percent Auto 0.2 % (0.9-7.0); Hematocrit 44.2 % (42.0-54.0); Hemoglobin 15.5 g/dL (14.0-18.0); Immature Granulocytes Abs Auto 0.07 10^3/uL (0.00-0.03); Immature Granulocytes Pct Auto 0.4 % (0.0-0.5); Lymphocytes Absolute Auto 4.1 10^3/uL (1.2-3.8); Lymphocytes Percent Auto 25.8 % (20.5-60.0); Mean Corpuscular HGB Conc 35.1 g/dL (29.9-35.2); Mean Corpuscular Hemoglobin 28.6 pg (25.9-34.0); Mean Corpuscular Volume 81.5 fL (80.0-94.0); Mean Platelet Volume 10.6 fL (9.5-13.5); Monocytes Percent Auto 6.4 % (1.7-12.0); Neutrophils Absolute Auto 10.7 10^3/uL (1.4-6.5); Neutrophils Percent Auto 66.9 % (43.0-75.0); Platelet Count 442 10^3/uL (150-450); Red Blood Count 5.42 10^6/uL (4.70-6.10); Red Cell Distribution Width 13.3 % (11.0-15.0)
[2023-11-24] MEDS: 0.9 % SODIUM CHLORIDE 1,000 ML 999 ML IV ×2 (17:11→20:15)
[2023-11-24] MEDS: ONDANSETRON PF 4 MG/2 ML VIAL IV (17:14)
[2023-11-24] MEDS: PANTOPRAZOLE SODIUM 40 MG VIAL IV (17:14)
--- NOTE | 2023-11-24 17:20 | XR_ITS ---
The [address] [address] Patient Name: PAULINA CHARLES MRN: [id number] date: 1990 Sex: M Assigned Patient Location: [place] Current Patient Location: [place] Accession/Order Number: [id number] Exam Date: 11/24/2023 18:06 Report Date: 11/24/2023 18:44 At the request of: MELODY PHELPS Procedure: XR acute abdomen series EXAM: XR acute abdomen series HISTORY: Abd Pain COMPARISON: 01/03/2023 TECHNIQUE: Chest X-ray AP, 1 view Abdominal x-ray, 2 view. FINDINGS: Support devices: None. Lungs/pleura: No consolidation, effusion, or pneumothorax. Heart and mediastinum: Normal contours. Bones: No acute abnormality identified. Bowel: Unremarkable bowel gas pattern. No bowel dilatation. Stool is noted throughout the colon, likely representing constipation. No gross pneumoperitoneum on exam of limited sensitivity for that finding. XR/XR acute abdomen series IMPRESSION: Constipation. Electronically authenticated by: GIULIANO CHAPMAN Date: 11/24/2023 18:44
[2023-11-24 17:25] LABS: Alanine Aminotransferase 97 U/L (16-63); Alkaline Phosphatase 82 U/L (46-116); Anion Gap 17.4; Aspartate Amino Transferase 30 U/L (15-37); BUN Creatinine Ratio 7.5; Bilirubin Total 0.9 mg/dL (0.2-1.0); Calcium 9.3 mg/dL (8.5-10.1); Carbon Dioxide 18.4 mmol/L (21.0-32.0); Chloride 98 mmol/L (98-107); Estimated GFR (African America >60 (>=60); Estimated GFR (Non-African Ame >60 (>=60); Glucose 118 mg/dL (74-106); Sodium 131 mmol/L (136-145)
[2023-11-24 17:30] LABS: Lactate/Lactic Acid 2.4 mmol/L (0.4-2.0); Potassium 2.8 mmol/L (3.5-5.1)
--- OUTSIDE RECORDS SUMMARY | 2023-11-24 17:39 | XMS_ITS | CCD ---
Author Name Unknown Address [address] [place] [address] Organization [facility] Care Team Providers Care Jowl Trimmer Name Role Phone DARREN MOHAMAD Referring Unavailable [...] HOY ., DR OLIVER Primary Care Unavailable AHIM HUDDLESTON Attending Unavailable HAIM HUDDLESTON Admitting Unavailable HOY ., DR OLIVER Consulting Unavailable HOY ., DR OLIVER Primary Care Unavailable HOY ., DR OLIVER Attending Unavailable HOY ., DR OLIVER Admitting Unavailable UNDERWOOD, DR RAPHAEL Lemon Consulting Unavailable Michaels, K [...] to adverse reactions to drug (disorder) 09-28-20 [facility] Repository (1 source) Sulfamethoxazole / Trimethoprim; Translations: [SULFAMETHOXAZOLE-TR IMETHOPRIM] Drug Allergy 01-27-20 [facility] Repository (1 source) Clarithromycin Drug Allergy [place] Repository (1 source) Sulfamethoxazole / Trimethoprim Drug Allergy 05-27-20 17 [place] Repository (1 source) Sulfamethoxazole Drug Allergy 03-20-20 [facility] Repository (1 source) Trimethoprim Drug Allergy 03-20-20 [facility] Repository Problems Active Problems Problem Classification Problem [...] 11-16-2022 Ep[facility] Other aftercare (1 source) Other residential (current) drug therapy; Translations: [OTH CAR FERRY CAPTAIN CURRENT DRUG THERAPY] Onset: 02-07-2023 Episodic Other [...] IGG ABS 0.09 Index Value Normal 0.00-0.79 [facility] Comment on above: Result Comment: Nega tive <0.80 Equivocal 0.80 - 0.89 Positive >0.89 Performed By: #### H PYLLC ####[facility] Idrr[address] [place] [address]Dr. Chrissy Frazier AMYLASEon 01-04-2023 Amylase [Catalytic activity/Vol] 34 U/L Normal 25-115 [facility] Comment on above: Performed By: #### A MY ####[facility] Hezgiwpdqm[address] [place], [place] [address]Dr. Chrissy Frazier CBC AUTO DIFFon 01-04-2023 BASO # 0.0 103/ul Normal 0.0-0.1 [place] Comment on above: Performed By: #### C BC ####[facility] Phdbizlsuq64[address] [place], [place] [address]Dr. Chrissy Frazier Basophils/100 WBC (Bld) 0.1 % Critically low 0.2-2.0 [place] Comment on above: Performed By: #### C BC ####[facility] Frvedvvttm[address] [place], [place] [address]Dr. Chrissy Frazier EO # 0.0 103/ul Normal 0.0-0.7 [place] Comment on above: Performed By: #### C BC ####[facility] Snmdoqpbxl62[address] [place], [place] [address]Dr. Chrissy Frazier Eosinophils/100 WBC (Bld) 0.1 % Critically low 0.9-7.0 [facility] Comment on above: Performed By: #### C BC ####[facility] Fediulzwxa2440[address] [place], [place] [address]Dr. Chrissy Frazier Erythrocyte distribution width (RBC) [Ratio] 14.0 % Normal 11.0-15.0 [facility] Comment on above: Performed By: #### C BC ####[facility] Uwmggwlrgz057[address] [place], [place] [address]Dr. Chrissy Frazier Hematocrit (Bld) [Volume fraction] 40.4 % Critically low 42.0-54.0 [facility] Comment on above: Performed By: #### C BC ####[facility] Zyfokjryzm[address] [place] [address]Dr. Chrissy Frazier Hemoglobin (Bld) [Mass/Vol] 13.8 g/dL Critically low 14.0-18.0 [place] Comment on above: Performed By: #### C BC ####[facility] Fntecfsppt[address] [place] [address]Dr. Chrissy Frazier IG # 0.05 10e3/ul Critically high 0.00-0.03 [facility] Comment on above: Performed By: #### C BC ####[facility] Tppqeuzuwn[address] [place] [address]Dr. hCrissy Frazier IG % 0.3 % Normal 0.0-0.5 [place] Comment on above: Performed By: #### C BC ####[facility] Wprwxisuxq24[address] [place], [place] [address]Dr. Chrissy Frazier LYMPH # 1.7 103/ul Normal 1.2-3.8 [place] Comment on above: Performed By: #### C BC ####[facility] Xhfqapsgad8[address] [place] [address]Dr. Chrissy Frazier Lymphocytes/100 WBC (Bld) 11.9 % Critically low 20.5-60.0 [place] Comment on above: Performed By: #### C BC ####[facility] Ocanwjbjev[address] [place] [address]Dr. Chrissy Frazier MANUAL DIFF REQ NO Normal [facility] Comment on above: Performed By: #### C BC ####[facility] Hpzjfgvlcz[address] [place], [place] [address]Dr. Chrissy Frazier MCH (RBC) [Entitic mass] 29.3 pg Normal 25.9-34.0 [facility] Comment on above: Performed By: #### C BC ####[facility] Zzayfvccmk[address] [place], [place] [address]Dr. Chrissy Frazier MCHC (RBC) [Mass/Vol] 34.2 g/dL Normal 29.9-35.2 [facility] Comment on above: Performed By: #### C BC ####[facility] Jetqvurery2[address] [place] [address]Dr. Chrissy Frazier MCV (RBC) [Entitic vol] 85.8 fL Normal 80.0-94.0 [place] Comment on above: Performed By: #### C BC ####[facility] Ivrulkkrnp8503 [place] [address]Dr. Chrissy Frazier MONO # 0.6 103/ul Normal 0.3-0.8 [facility] Comment on above: Performed By: #### C BC ####[facility] Qqurtcrapx1014 [place] [address]Dr. Chrissy Freddie Monocytes/100 WBC (Bld) 4.2 % Normal 1.7-12.0 [place] Comment on above: Performed By: #### C BC ####[facility] Mtpapkvbhf9[address] [place], [place] [address]Dr. Chrissy Frazier NEUT # 12.0 103/ul Critically high 1.4-6.5 [facility] Comment on above: Performed By: #### C BC ####[facility] Qthbgkwvgp9536[address] [place], [place] [address]Dr. Chrissy Freddie Neutrophils/100 WBC (Bld) 83.4 % Critically high 43.0-75.0 [place] Comment on above: Performed By: #### C BC ####[facility] Palflpzovt[address] [place], [place] [address]Dr. Chrissy Freddie Platelet mean volume (Bld) [Entitic vol] 10.4 fL Normal 9.5-13.5 [facility] Comment on above: Performed By: #### C BC ####[facility] Uatbgojmcq9[address] [place], [place] [address]Dr. Tishrowan Frazier PLT 313 103/ul Normal 150-450 [facility] Comment on above: Performed By: #### C BC ####[facility] Asgnocxztk3[address] [place] [address]Dr. Chrissy Frazier RBC 4.71 106/ul Normal 4.70-6.10 [facility] Comment on above: Performed By: #### C BC ####[facility] Ogkrkrmuqg[address] [place] [address]Dr. Chrissy Frazier WBC 14.4 103/ul Critically high 4.0-11.0 The [facility] Comment on above: Performed By: #### C BC ####[facility] Ejmnpzbbyg9[address] [place] [address]Dr. Chrissy Frazier CULTURE URINEon 01-04-2023 CULTURE URINE Culture Observations: NO GROWTH. Normal [facility] Comment on above: Performed By: #### U RCX ####[facility] Gebojuqcxu70[address] [place] [address]Dr. Chrissy Frazier DRUG SCREEN RAPID (URINE)on 01-04-2023 AMP Negative Normal NEGATIVE The [facility] Comment on above: Performed By: #### D REYES, UAMIC ####[facility] Jdxutcnwin[address] [place], [place] [address]Dr. Chrissy Frazier BAR Negative Normal NEGATIVE [facility] Comment on above: Performed By: #### D REYES, UAMIC ####[facility] Xzogqdiord16[address] [place] [address]Dr. Chrissy Frazier BUP Negative Normal NEGATIVE The [facility] Comment on above: Performed By: #### D REYES, UAMIC ####[facility] Namtbbufez7447 [place] [address]Dr. Chrissy Frazier BZO Positive Abnormal NEGATIVE The [facility] Comment on above: Performed By: #### Amelie CHAMBERS, UAMIC ####[facility] Yuqyvyjphi6[address] [place] [address]Dr. Chrissy Frazier LAUREN Negative Normal NEGATIVE The [facility] Comment on above: Performed By: #### D REYES, UAMIC ####[facility] Rilookmqzz7004[address] [place], [place] [address]Dr. Chrissy Frazier CUT-OFFS SEE BELOW Normal [facility] Comment on above: Result Comment: AMP (Amphetamine): 500ng/mL, BAR (Barbituates): 200 ng/mL, BZO (Benzodiazepines): 150 ng/mL, BUP (Buprenorphine): 10 ng/mL, LAUREN (Cocaine): 150 ng/mL, mAMP (Methamphetamine): 500 ng/mL, MTD (Methadone): 200 ng/mL, OPI (Opiates): 100 ng/mL, OXY (Oxycodone): 100 ng/mL, PCP (Phencyclidine): 25 ng/mL, PPX (Propoxyphene): 300 ng/mL, THC (Cannabinoids): 50 ng/mL, TCA (Trycyclic Antidepressants): 300 ng/mL Performed By: #### Amelie CHAMBERS, UAMIC ####[facility] Rqcvdgkdhy[address] [place], [place] [address]Dr. [facility] DRUG CUT HEADER DRUG CLASS TEST SYSTEM CUT-OFF CONCENTRATIONS ARE FOLLOWS: Normal The [facility] Comment on above: Performed By: #### Amelie CHAMBERS UAMIC ####[facility] Krxcqucvbe7989[address] [place], [place] [address]Dr. [facility] mAMP Negative Normal NEGATIVE The [facility] Comment on above: Performed By: #### Amelie CHAMBERS UAMIC ####[facility] Hlmxsdljdm4[address] [place], [place] [address]Dr. [facility] MTD Negative Normal NEGATIVE [place] Comment on above: Performed By: #### Amelie CHAMBERS, UAMIC ####[facility] Ebonzfnjye04[address] [place], [place] [address]Dr. [facility] OPI Negative Normal NEGATIVE The [facility] Comment on above: Performed By: #### Amelie CHAMBERS, UAMIC ####[facility] Oblvximzck6[address] [place], [place] [address]Dr. [facility] OXY Negative Normal NEGATIVE The [facility] Comment on above: Performed By: #### Amelie CHAMBERS, UAMIC ####[facility] Arghcrcqpe9[address] [place], [place] [address]Dr. [facility] PCP Negative Normal NEGATIVE The [facility] Comment on above: Performed By: #### Amelie CHAMBERS, UAMIC ####[facility] Nauvqtojep[address] [place], [place] [address]Dr. [facility] PPX Negative Normal NEGATIVE The [facility] Comment on above: Performed By: #### Amelie CHAMBERS UAMIC ####[facility] Ogztheknlz15[address] [place] [address]Dr. Chrissy Frazier TCA Positive Abnormal NEGATIVE [place] Comment on above: Performed By: #### D REYES UAMIC ####[facility] Vnlvmfhfqu9566 [place] [address]Dr. Chrissy Frazier THC Positive Abnormal NEGATIVE The [facility] Comment on above: Performed By: #### D REYES UAMIC ####[facility] Nozgapanpn2384 [place] [address]Dr. Chrissy Frazier LIPASEon 01-04-2023 Lipase [Catalytic activity/Vol] 57.0 U/L Critically low 73.0-393.0 [place] Comment on above: Performed By: #### L IPA ####[facility] Vejyydwnya[address] [place], [place] [address]Dr. Chrissy Frazier PROF 14(COMP METB)on 023 Albumin [Mass/Vol] 3.6 g/dL Normal 3.4-5.0 [facility] Comment on above: Performed By: #### C MP ####[facility] Ttgxjvlykh7[address] [place] [address]Dr. Chrissy Frazier Albumin/Globulin [Mass ratio] 1.0 {ratio} Normal [place] Comment on above: Performed By: #### C MP ####[facility] Smsnzikumz20[address] [place] [address]Dr. Chrissy Frazier ALP [Catalytic activity/Vol] 67 U/L Normal 46-116 [facility] Comment on above: Performed By: #### C MP ####[facility] Sqxtjldgyn4715 [place] [address]Dr. Chrissy Frazier ALT [Catalytic activity/Vol] 26 U/L Normal 16-63 [facility] Comment on above: Performed By: #### C MP ####[facility] Jnwagwxesv2743 [place] [address]Dr. Chrissy Frazier Anion gap [Moles/Vol] 16.3 mmol/L Normal [place] Comment on above: Performed By: #### C MP ####[facility] Nbxkjgjorz9514 [place] [address]Dr. Chrissy Frazier AST [Catalytic activity/Vol] 17 U/L Normal 15-37 The [facility] Comment on above: Performed By: #### C MP ####[facility] Vqwikzvtok0254 [place] [address]Dr. Chrissy Frazier Bilirubin [Mass/Vol] 0.4 mg/dL Normal 0.2-1.0 The [facility] Comment on above: Performed By: #### C MP ####[facility] Tguezdxyhy3402 [place] [address]Dr. Chrissy Frazier Calcium [Mass/Vol] 8.7 mg/dL Normal 8.5-10.1 [facility] Comment on above: Performed By: #### C MP ####[facility] Cjcytozvfx8122 [place] [address]Dr. Chrissy Frazier Chloride [Moles/Vol] 106 mmol/L Normal 98-107 The [facility] Comment on above: Performed By: #### C MP ####[facility] Fqbrdjojmh6954 [place] [address]Dr. Chrissy Frazier CO2 [Moles/Vol] 22.6 mmol/L Normal 21.0-32.0 The [facility] Comment on above: Performed By: #### C MP ####[facility] Fgdztspjqd2091 [place] [address]Dr. Chrissy Frazier Creatinine [Mass/Vol] 0.99 mg/dL Normal 0.70-1.30 The [facility] Comment on above: Performed By: #### C MP ####[facility] Itknuwrrzd9687 [place] [address]Dr. Chrissy Frazier EGFR-AF CROATIAN >60 Normal >=60 The [facility] Comment on above: Performed By: #### C MP ####[facility] Dvpukuylzt2357 [place] [address]Dr. Chrissy Frazier EGFR-NON AF CROATIAN >60 Normal >=60 The [facility] Comment on above: Performed By: #### C MP ####[facility] Ghtjuwagvc23[address] [place], [place] [address]Dr. Chrissy Frazier Globulin (S) [Mass/Vol] 3.6 g/dL Normal [place] Comment on above: Performed By: #### C MP ####[facility] Uxonjibflo8199[address] [place], [place] [address]Dr. Chrissy Frazier Glucose [Mass/Vol] 138 mg/dL Critically high 74-106 [facility] Comment on above: Performed By: #### C MP ####[facility] Vqxqqoosqj37[address] [place], [place] [address]Dr. Chrissy Frazier Potassium [Moles/Vol] 3.9 mmol/L Normal 3.5-5.1 [place] Comment on above: Performed By: #### C MP ####[facility] Twtuaibisf6[address] [place], [place] [address]Dr. Chrissy Frazier Protein [Mass/Vol] 7.2 g/dL Normal 6.4-8.2 [facility] Comment on above: Performed By: #### C MP ####[facility] Jwncsxfcxn9299[address] [place], [place] [address]Dr. Chrissy Frazier Sodium [Moles/Vol] 141 mmol/L Normal 136-145 [facility] Comment on above: Performed By: #### C MP ####[facility] Innglejuzs5059[address] [place], [place] [address]Dr. Chrissy Frazier Urea nitrogen [Mass/Vol] 10.0 mg/dL Normal 7.0-18.0 [place] Comment on above: Performed By: #### C MP ####[facility] Onvfnblxhg158[address] [place], [place] [address]Dr. Chrissy Freddie Urea nitrogen/Creatinine [Mass ratio] 10.1 mg/mg Normal The [facility] Comment on above: Performed By: #### C MP ####[facility] Qnhwrahkwi9[address] [place], [place] [address]Dr. Chrissy Freddie UA RANDOM W/MICROSCOPICon BACTERIA TRACE Abnormal NONE SEEN The [facility] Comment on above: Performed By: #### D REYES, UAMIC ####[facility] Waqzphmjgn70[address] [place], [place] [address]Dr. Chrissy Frazier Bilirubin Ql (U) Negative Normal NEGATIVE The [facility] Comment on above: Performed By: #### Amelie CHAMBERS, UAMIC ####[facility] Doibdgaysd84[address] [place], [place] [address]Dr. Chrissy Frazier CAST NONE SEEN Normal NONE SEEN The [facility] Comment on above: Performed By: #### Amelie LARKIND, UAMIC ####[facility] Fafrjzvlah4034[address] [place], [place] [address]Dr. Chrissy Frazier Clarity (U) CLEAR Normal CLEAR The [facility] Comment on above: Performed By: #### Amelie CHAMBERS, UAMIC ####[facility] Bvpagakuvh0667[address] [place], [place] [address]Dr. Chrissy Frazier Color (U) YELLOW Normal YELLOW The [facility] Comment on above: Performed By: #### Amelie CHAMBERS, UAMIC ####[facility] Xkgqmoktje95[address] [place], [place] [address]Dr. Chrissy Frazier Crystals LM Nom (Urine sed) NONE SEEN Normal NONE SEEN The [facility] Comment on above: Performed By: #### Amelie CHAMBERS, UAMIC ####[facility] Cazjezasnn56[address] [place], [place] [address]Dr. Chrissy Frazier Epithelial cells LM Ql (Urine sed) NONE SEEN Normal NONE SEEN /RARE The [facility] Comment on above: Performed By: #### Amelie CHAMBERS, UAMIC ####[facility] Umspciwpjb2232[address] [place], [place] [address]Dr. Chrissy Frazier Glucose Ql (U) Negative Normal NEGATIVE The [facility] Comment on above: Performed By: #### Amelie CHAMBERS, UAMIC ####[facility] Lgzexlutjj64[address] [place], [place] [address]Dr. Chrissy Frazier Hemoglobin Ql (U) Negative Normal NEGATIVE The [facility] Comment on above: Performed By: #### Amelie CHAMBERS, UAMIC ####[facility] Rogsnsaxqf2100[address] [place], [place] [address]Dr. Chrissy Frazier Ketones Ql (U) 15 mg/dl Abnormal NEGATIVE The [facility] Comment on above: Performed By: #### Amelie CHAMBERS UAMIC ####[facility] Hdpiilgrbj6289 [place] [address]Dr. Chrissy Freddie LEUKOCYTES Negative Normal NEGATIVE The [facility] Comment on above: Performed By: #### Amelie CHAMBERS UAMIC ####[facility] Djtgzrwbnh4734 [place] [address]Dr. Yirowan Frazier MUCOUS NONE SEEN Normal NONE SEEN The [facility] Comment on above: Performed By: #### Amelie CHAMBERS UAMIC ####[facility] Eiwulvoxnr2258 [place] [address]Dr. Tishrowan Frazier Nitrite Ql (U) Negative Normal NEGATIVE The [facility] Comment on above: Performed By: #### Amelie CHAMBERS UAMIC ####[facility] Bioiwxngqi2230 [place] [address]Dr. Chrissy Frazier pH (U) 6.5 [pH] Normal 5-9 The [facility] Comment on above: Performed By: #### Amelie CHAMBERS UAMIC ####[facility] Vgdlehcavi5[address] [place], [place] [address]Dr. Chrissy Frazier RBC NONE SEEN Abnormal 0-2 The [facility] Comment on above: Performed By: #### Amelie CHAMBERS UAMIC ####[facility] Qyxcrzafeh64[address] [place], [place] [address]Dr. Tishrowan Frazier SPEC GRAVITY 1.020 Normal 1.005-<=1.025 The [facility] Comment on above: Performed By: #### Amelie CHAMBERS UAMIC ####[facility] Ntritgqefc8259 [place] [address]Dr. Tishrowan Frazier UA PROTEIN Negative Normal NEGATIVE/ TRACE The [facility] Comment on above: Performed By: #### Amelie CHAMBERS UAMIC ####[facility] Buebmdjwex97[address] [place] [address]Dr. Tishrowan Frazier Urobilinogen Qn (U) 0.2 {Estrellita'U}/dL Normal 0.2 - 1. 0 The [facility] Comment on above: Performed By: #### Amelie CHAMBERS UAMIC ####[facility] Mkrbzpmllj2993 [place] [address]Dr. Chrissy Frazier WBC NONE SEEN Normal NONE SEEN The [facility] Comment on above: Performed By: #### D RUGRPD, UAMIC ####[facility] Bytclhawdk6[address] [place] [address]Dr. Chrissy Frazier AMMONIAon 01-03-2023 Ammonia (P) [Moles/Vol] 17 umol/L Normal 11-32 The [facility] Comment on above: Performed By: #### A MM ####[facility] Yuzrjdhiws16[address] [place], [place] [address]Dr. Chrissy Frazier AMYLASEon 01-03-2023 Amylase [Catalytic activity/Vol] 38 U/L Normal 25-115 The [facility] Comment on above: Performed By: #### L IPA, TERRENCE, CMP, MG ####[facility] Ynsfoanerm6284 [place] [address]Dr. Chrissy Frazier CBC AUTO DIFFon 01-03-2023 BASO # 0.1 103/ul Normal 0.0-0.1 The [facility] Comment on above: Performed By: #### C BC ####[facility] Olvxxomgys4058 [place] [address]Dr. Chrissy Frazier Basophils/100 WBC (Bld) 0.4 % Normal 0.2-2.0 The [facility] Comment on above: Performed By: #### C BC ####[facility] Vbjjtxfsed[address] [place], [place] [address]Dr. Chrissy Frazier EO # 0.1 103/ul Normal 0.0-0.7 The [facility] Comment on above: Performed By: #### C BC ####[facility] Snbfplzagy4416[address] [place], [place] [address]Dr. Chrissy Frazier Eosinophils/100 WBC (Bld) 0.3 % Critically low 0.9-7.0 The [facility] Comment on above: Performed By: #### C BC ####[facility] Knivxdcwqg4547 [place] [address]Dr. Chrissy Frazier Erythrocyte distribution width (RBC) [Ratio] 13.7 % Normal 11.0-15.0 The [facility] Comment on above: Performed By: #### C BC ####[facility] Vsbdswnbus7298 [place] [address]Dr. Chrissy Frazier Hematocrit (Bld) [Volume fraction] 46.1 % Normal 42.0-54.0 [place] Comment on above: Performed By: #### C BC ####[facility] Ldleckmnip9813 [place] [address]Dr. Chrissy Frazier Hemoglobin (Bld) [Mass/Vol] 15.4 g/dL Normal 14.0-18.0 [place] Comment on above: Performed By: #### C BC ####[facility] Nwfahorort45[address] [place], [place] [address]Dr. Chrissy Frazier IG # 0.11 10e3/ul Critically high 0.00-0.03 [facility] Comment on above: Performed By: #### C BC ####[facility] Bpoathmkjb3909[address] [place], [place] [address]Dr. Chrissy Frazier IG % 0.6 % Critically high 0.0-0.5 [facility] Comment on above: Performed By: #### C BC ####[facility] Cppryaizdh13[address] [place], [place] [address]Dr. Chrissy Freddie LYMPH # 2.5 103/ul Normal 1.2-3.8 [place] Comment on above: Performed By: #### C BC ####[facility] Iteaiblenn[address] [place], [place] [address]Dr. Tishrowan Frazier Lymphocytes/100 WBC (Bld) 13.9 % Critically low 20.5-60.0 [place] Comment on above: Performed By: #### C BC ####[facility] Lpaykfmgdy90[address] [place], [place] [address]DrNancy Tishrowan Frazier MANUAL DIFF REQ NO Normal [facility] Comment on above: Performed By: #### C BC ####[facility] Pydyavkeob2535[address] [place], [place] [address]Dr. Tishrowan Frazier MCH (RBC) [Entitic mass] 28.6 pg Normal 25.9-34.0 [place] Comment on above: Performed By: #### C BC ####[facility] Qskxysjgmh3208 [place] [id number]. Chrissy Freddie MCHC (RBC) [Mass/Vol] 33.4 g/dL Normal 29.9-35.2 The [facility] Comment on above: Performed By: #### C BC ####[facility] Vhsroedmsm4371 [place] [id number] Frazier MCV (RBC) [Entitic vol] 85.7 fL Normal 80.0-94.0 The [facility] Comment on above: Performed By: #### C BC ####[facility] Iqrgpikuco4[address] [place], [place] [address]Dr. Chrissy Frazier MONO # 0.7 103/ul Normal 0.3-0.8 The [facility] Comment on above: Performed By: #### C BC ####[facility] Ydcxuejkzm40[address] [place], [place] [address]Dr. Chrissy Frazier Monocytes/100 WBC (Bld) 4.0 % Normal 1.7-12.0 [place] Comment on above: Performed By: #### C BC ####[facility] Poyvqkcsoj[address] [place], [place] [address]DrNancy Frazier NEUT # 14.3 103/ul Critically high 1.4-6.5 The [facility] Comment on above: Performed By: #### C BC ####[facility] Mfknjzgwjh[address] [place], [place] [address]DrNancy Frazier Neutrophils/100 WBC (Bld) 80.8 % Critically high 43.0-75.0 The [facility] Comment on above: Performed By: #### C BC ####[facility] Qpypyizxbe[address] [place], [place] [id number] Frazier Platelet mean volume (Bld) [Entitic vol] 10.4 fL Normal 9.5-13.5 The [facility] Comment on above: Performed By: #### C BC ####[facility] Ffqdsaibsd[address] [place], [place] [address]DrNancy Frazier PLT 437 103/ul Normal 150-450 The [facility] Comment on above: Performed By: #### C BC ####[facility] Igczbeduey[address] [place] [address]Dr. Chrissy Frazier RBC 5.38 106/ul Normal 4.70-6.10 The [facility] Comment on above: Performed By: #### C BC ####[facility] Odbmowcbyc40[address] [place] [address]Dr. Chrissy Frazier WBC 17.7 103/ul Critically high 4.0-11.0 The [facility] Comment on above: Performed By: #### C BC ####[facility] Abizwbtblw5[address] [place] [address]Dr. Chrissy Frazier CULTURE BLOODon 01-03-2023 Microscopic examination of blood, culture Culture Observations: NO GROWTH AT 5 DAYS. Normal The [facility] Comment on above: Performed By: #### B LDCX1 ####[facility] Cnnubqohzg[address] [place], [place] [address]Dr. Chrissy Frazier Performed By: #### B LDCX2 ####[facility] Carbszhpvy5[address] [place], [place] [address]Dr. Chrissy Frazier ECHOCARDIO M/2D COMPLETEon 0 01-03-2023 ECHOCARDIO M/2D COMPLETE Normal The [facility] LACTATE/LACTIC ACIDon 2022 Lactate [Moles/Vol] 2.7 mmol/L Critically high 0.4-1.9 The [facility] Comment on above: Performed By: #### L ACT ####[facility] Inhuneeecf[address] [place], [place] [address]Dr. Chrissy Frazier Lactate [Moles/Vol] 6.3 mmol/L Critically high 0.4-1.9 The [facility] Comment on above: Performed By: #### L ACT ####[facility] Savqsheely[address] [place], [place] [address]Dr. Chrissy Frazier LIPASEon 01-03-2023 Lipase [Catalytic activity/Vol] 74.0 U/L Normal 73.0-393.0 The [facility] Comment on above: Performed By: #### L IPA, TERRENCE, CMP, MG ####[facility] Wbrtupgqgg84[address] [place] [address]Dr. Chrissy Frazier MAGNESIUMon 01-03-2023 Magnesium [Mass/Vol] 1.6 mg/dL Critically low 1.8-2.4 [place] Comment on above: Performed By: #### L IPA, TERRENCE, CMP, MG ####[facility] Ixbjidttlx3854 [place] [address]Dr. Chrissy Frazier PROF 14(COMP METB)on 023 Albumin [Mass/Vol] 4.3 g/dL Normal 3.4-5.0 [facility] Comment on above: Performed By: #### L IPA, TERRENCE, CMP, MG ####[facility] Yobucisldj22[address] [place] [address]Dr. Chrissy Frazier Albumin/Globulin [Mass ratio] 1.1 {ratio} Normal [place] Comment on above: Performed By: #### L IPA, TERRENCE, CMP, MG ####[facility] Wgzecknmzw3569 [place] [address]Dr. Chrissy Frazier ALP [Catalytic activity/Vol] 87 U/L Normal 46-116 [place] Comment on above: Performed By: #### L IPA, TERRENCE, CMP, MG ####[facility] Abolboblfo[address] [place], [place] [address]Dr. Chrissy Frazier ALT [Catalytic activity/Vol] 32 U/L Normal 16-63 [place] Comment on above: Performed By: #### L IPA, TERRENCE, CMP, MG ####[facility] Fyswocgizy0126 [place] [address]Dr. Chrissy Frazier Anion gap [Moles/Vol] 24.0 mmol/L Normal [place] Comment on above: Performed By: #### L IPA, TERRENCE, CMP, MG ####[facility] Yytxykgdxj2401 [place] [address]Dr. Chrissy Frazier AST [Catalytic activity/Vol] 22 U/L Normal 15-37 [place] Comment on above: Performed By: #### L IPA, TERRENCE, CMP, MG ####[facility] Yhqouzsirq32[address] [place] [address]Dr. Chrissy Frazier Bilirubin [Mass/Vol] 0.6 mg/dL Normal 0.2-1.0 The [facility] Comment on above: Performed By: #### L IPA, TERRENCE, CMP, MG ####[facility] Wdtpmnagse8726 [place] [address]Dr. Chrissy Frazier Calcium [Mass/Vol] 9.6 mg/dL Normal 8.5-10.1 The [facility] Comment on above: Performed By: #### L IPA, TERRENCE, CMP, MG ####[facility] Aztezdxgrh2004 [place] [address]Dr. Chrissy Frazier Chloride [Moles/Vol] 103 mmol/L Normal 98-107 The [facility] Comment on above: Performed By: #### L IPA, TERRENCE, CMP, MG ####[facility] Lnyyppeckp7501 [place] [address]Dr. Chrissy Frazier CO2 [Moles/Vol] 16.7 mmol/L Critically low 21.0-32.0 The [facility] Comment on above: Performed By: #### L IPA, TERRENCE, CMP, MG ####[facility] Stuqtngmke8844 [place] [address]Dr. Chrissy Frazier Creatinine [Mass/Vol] 1.42 mg/dL Critically high 0.70-1.30 [place] Comment on above: Performed By: #### L IPA, TERRENCE, CMP, MG ####[facility] Cohuptjnvm8502 [place] [address]Dr. Chrissy Frazier EGFR-AF CROATIAN >60 Normal >=60 The [facility] Comment on above: Performed By: #### L IPA, TERRENCE, CMP, MG ####[facility] Pxapfxzdpx4996 [place] [address]Dr. Chrissy Frazier EGFR-NON AF CROATIAN 58 mL/min/1.73m2 Critically low >=60 The [facility] Comment on above: Performed By: #### L IPA, TERRENCE, CMP, MG ####[facility] Opwfovxsmp1766 [place] [address]Dr. Chrissy Frazier Globulin (S) [Mass/Vol] 4.0 g/dL Normal The [facility] Comment on above: Performed By: #### L IPA, TERRENCE, CMP, MG ####[facility] Fcvorqmsth1345 [place] [address]Dr. Chrissy Frazier Glucose [Mass/Vol] 149 mg/dL Critically high 74-106 [facility] Comment on above: Performed By: #### L IPA, TERRENCE, CMP, MG ####[facility] Vqxvahlurq0861 [place] [address]Dr. Chrissy Frazier Potassium [Moles/Vol] 3.7 mmol/L Normal 3.5-5.1 [place] Comment on above: Performed By: #### L IPA, TERRENCE, CMP, MG ####[facility] Sjtfqkfefk1583 [place] [address]Dr. Chrissy Frazier Protein [Mass/Vol] 8.3 g/dL Critically high 6.4-8.2 [facility] Comment on above: Performed By: #### L IPA, TERRENCE, CMP, MG ####[facility] Tiruhhotqy9863 [place] [address]Dr. Chrissy Frazier Sodium [Moles/Vol] 140 mmol/L Normal 136-145 [facility] Comment on above: Performed By: #### L IPA, TERRENCE, CMP, MG ####[facility] Lcqthzzmre3042 [place] [address]Dr. Chrissy Frazier Urea nitrogen [Mass/Vol] 16.0 mg/dL Normal 7.0-18.0 [place] Comment on above: Performed By: #### L IPA, TERRENCE, CMP, MG ####[facility] Gjnldnltae0063 [place] [address]Dr. Chrissy Frazier Urea nitrogen/Creatinine [Mass ratio] 11.3 mg/mg Normal [place] Comment on above: Performed By: #### L IPA, TERRENCE, CMP, MG ####[facility] Jsldcvtirt8445 [place] [address]Dr. Chrissy Frazier SED RATE [facility] 2022 SED RATE 37 mm/hr Critically high <=15 [facility] Comment on above: Performed By: #### S EDR ####[facility] Egycfjbvez2424 [place], [place] [address]Vf. Chrissy Frazier XR ABD FLAT UP_PA Enoch 01-03 XR ABD FLAT UP_PA CH Normal The [facility] CT HEART CORONARY ANGIOGRAMo n 12-13-2022 CT [...] CT examination Electronically signed: Maikel Chappell. Normal [facility] Office Visiton 11-24-2022 Follow-up visit [id number] Terence Montero 1990 M Date Provider Department Center 11/24/2022 3848-RAQUEL BANKS [facility] Family History Problem Relation Age of Onset Coronary artery disease Father Heart attack Father 54 Family Status - Relation Status Age at Father Level of Service:63157 DC OFFICE/OUTPATIENT NEW MODERATE MDM 45-59 MINUTES Reason for Visit and Comments: abnormal stress test [Other] Normal [facility] CARDIAC STRESS TESTon 2021 CARDIAC STRESS TEST Normal [facility] AMYLASEon 10-24-2022 Amylase [Catalytic activity/Vol] 26 U/L Normal 25-115 The [facility] Comment on above: Performed By: #### C MP, LIPA, TERRENCE ####[facility] Bcpqxamrxm3743 [place], [place] [address]UyNancy Chrissy Frazier CBC AUTO DIFFon 10-24-2022 BASO # 0.0 103/ul Normal 0.0-0.1 [place] Comment on above: Performed By: #### C BC ####[facility] Qyvbprtknu0706 [place] [address]Dr. Chrissy Frazier Basophils/100 WBC (Bld) 0.2 % Normal 0.2-2.0 The [facility] Comment on above: Performed By: #### C BC ####[facility] Cpqfieoinw1447 [place] [address]Dr. Chrissy Frazier EO # 0.1 103/ul Normal 0.0-0.7 The [facility] Comment on above: Performed By: #### C BC ####[facility] Icwnqlsxkg[address] [place], [place] [address]Dr. Chrissy Frazier Eosinophils/100 WBC (Bld) 0.4 % Critically low 0.9-7.0 The [facility] Comment on above: Performed By: #### C BC ####[facility] Pysfrutljo9[address] [place], [place] [address]Dr. Chrissy Frazier Erythrocyte distribution width (RBC) [Ratio] 14.6 % Normal 11.0-15.0 The [facility] Comment on above: Performed By: #### C BC ####[facility] Mdswwvfcvz[address] [place], [place] [address]Dr. Chrissy Frazier Hematocrit (Bld) [Volume fraction] 39.4 % Critically low 42.0-54.0 [place] Comment on above: Performed By: #### C BC ####[facility] Hdukqovotl[address] [place], [place] [address]Dr. Chrissy Frazier Hemoglobin (Bld) [Mass/Vol] 13.2 g/dL Critically low 14.0-18.0 The [facility] Comment on above: Performed By: #### C BC ####[facility] Xyixwwhcha0378 [place] [address]Dr. Chrissy Frazier IG # 0.07 10e3/ul Critically high 0.00-0.03 [facility] Comment on above: Performed By: #### C BC ####[facility] Hapyocuryi[address] [place], [place] [address]Dr. Chrissy Frazier IG % 0.5 % Normal 0.0-0.5 The [facility] Comment on above: Performed By: #### C BC ####[facility] Iswmzdoesu1187 [place] [address]Dr. Chrissy Frazier LYMPH # 3.7 103/ul Normal 1.2-3.8 The [facility] Comment on above: Performed By: #### C BC ####[facility] Lpfbjeanzv2877 [place], [place] [address]Ms. Chrissy Frazier Lymphocytes/100 WBC (Bld) 27.0 % Normal 20.5-60.0 The [facility] Comment on above: Performed By: #### C BC ####[facility] Wrijxhwrsx7080 [place] [address]Dr. Chrissy Freddie MANUAL DIFF REQ NO Normal [facility] Comment on above: Performed By: #### C BC ####[facility] Kwfzqfschq9662 [place] [address]Dr. Chrissy Freddie MCH (RBC) [Entitic mass] 27.8 pg Normal 25.9-34.0 The [facility] Comment on above: Performed By: #### C BC ####[facility] Iyqpvllbpg7215 [place] [address]Dr. Chrissy Frazier MCHC (RBC) [Mass/Vol] 33.5 g/dL Normal 29.9-35.2 The [facility] Comment on above: Performed By: #### C BC ####[facility] Xhhciyjeie5733 [place] [address]Dr. Chrissy Freddie MCV (RBC) [Entitic vol] 82.9 fL Normal 80.0-94.0 The [facility] Comment on above: Performed By: #### C BC ####[facility] Sgdujscnhr6641 [place] [address]Dr. Chrissy Freddie MONO # 1.2 103/ul Critically high 0.3-0.8 [facility] Comment on above: Performed By: #### C BC ####[facility] Esmrqmnuzj1701 [place] [address]Dr. Chrissy Freddie Monocytes/100 WBC (Bld) 8.4 % Normal 1.7-12.0 The [facility] Comment on above: Performed By: #### C BC ####[facility] Yadnjagihq9218 [place] [address]Dr. Chrissy Frazier NEUT # 8.8 103/ul Critically high 1.4-6.5 [facility] Comment on above: Performed By: #### C BC ####[facility] Fyhwosuqdh7215 [place] [address]Dr. Chrissy Frazier Neutrophils/100 WBC (Bld) 63.5 % Normal 43.0-75.0 The [facility] Comment on above: Performed By: #### C BC ####[facility] Eqheprqsvx8285 [place] [address]Dr. Chrissy Frazier Platelet mean volume (Bld) [Entitic vol] 10.7 fL Normal 9.5-13.5 The [facility] Comment on above: Performed By: #### C BC ####[facility] Yvsgecocjf8117 [place] [address]Dr. Chrissy Frazier PLT 291 103/ul Normal 150-450 The [facility] Comment on above: Performed By: #### C BC ####[facility] Ikhehvzkvq2522 [place] [address]Dr. Chrissy Frazier RBC 4.75 106/ul Normal 4.70-6.10 The [facility] Comment on above: Performed By: #### C BC ####[facility] Vtnoiuouai3095 [place] [address]Dr. Chrissy Frazier WBC 13.8 103/ul Critically high 4.0-11.0 The [facility] Comment on above: Performed By: #### C BC ####[facility] Caulkyrdgc7866 [place] [address]Dr. Chrissy Freddie LIPASEon 10-24-2022 Lipase [Catalytic activity/Vol] 44.0 U/L Critically low 73.0-393.0 The [facility] Comment on above: Performed By: #### C MP, LIPA, TERRENCE ####[facility] Fcpzykncxp8869 [place] [address]Dr. Chrissy Frazier PROF 14(COMP METB)on 022 Albumin [Mass/Vol] 3.4 g/dL Normal 3.4-5.0 The [facility] Comment on above: Performed By: #### C MP, LIPA, TERRENCE ####[facility] Ulnsucwcmr6991 [place] [address]Dr. Tishrowan Freddie Albumin/Globulin [Mass ratio] 0.9 {ratio} Normal [place] Comment on above: Performed By: #### C MP, LIPA, TERRENCE ####[facility] Tahvuybemq4376 [place] [address]Dr. Chrissy Freddie ALP [Catalytic activity/Vol] 67 U/L Normal 46-116 [place] Comment on above: Performed By: #### C MP, LIPA, TERRENCE ####[facility] Dqcibipwuu[address] [place], [place] [address]Dr. Chrissy Frazier ALT [Catalytic activity/Vol] 25 U/L Normal 16-63 [place] Comment on above: Performed By: #### C MP, LIPA, TERRENCE ####[facility] Jhazvzufcd88[address] [place], [place] [address]Dr. Tishrowan Freddie Anion gap [Moles/Vol] 14.5 mmol/L Normal [place] Comment on above: Performed By: #### C MP LIPA, TERRENCE ####[facility] Twkfxooryy377[address] [place], [place] [address]Dr. Chrissy Freddie AST [Catalytic activity/Vol] 17 U/L Normal 15-37 [place] Comment on above: Performed By: #### C MP, LIPA, TERRENCE ####[facility] Nmseqiywwi[address] [place], [place] [address]Dr. Chrissy Frazier Bilirubin [Mass/Vol] 0.5 mg/dL Normal 0.2-1.0 The [facility] Comment on above: Performed By: #### C MP, LIPA, TERRENCE ####[facility] Qnjxcuztcd[address] [place], [place] [address]Dr. Chrissy Frazier Calcium [Mass/Vol] 8.6 mg/dL Normal 8.5-10.1 [facility] Comment on above: Performed By: #### C MP, LIPA, TERRENCE ####[facility] Mveheipqxc37[address] [place], [place] [address]Dr. Chrissy Frazier Chloride [Moles/Vol] 106 mmol/L Normal 98-107 The [facility] Comment on above: Performed By: #### C OSWALD ADAIR AMY ####[facility] Cyovdptblw6529 [place] [address]Dr. Chrissy Frazier CO2 [Moles/Vol] 22.8 mmol/L Normal 21.0-32.0 The [facility] Comment on above: Performed By: #### C OSWALD ADAIR, TERRENCE ####[facility] Kivfeoqhgw[address] [place], [place] [address]Dr. Chrissy Frazier Creatinine [Mass/Vol] 0.98 mg/dL Normal 0.70-1.30 The [facility] Comment on above: Performed By: #### C OSWALD ADAIR AMY ####[facility] Wybgufepov8[address] [place], [place] [address]Dr. Chrissy Frazier EGFR-AF CROATIAN >60 Normal >=60 The [facility] Comment on above: Performed By: #### C OSWALD ADAIR TERRENCE ####[facility] Tgvgbljxdd195[address] [place], [place] [address]Dr. Chrissy Frazier EGFR-NON AF CROATIAN >60 Normal >=60 The [facility] Comment on above: Performed By: #### C OSWALD ADAIR TERRENCE ####[facility] Lgnjbrnnxu3316 [place] [address]Dr. Chrissy Frazier Globulin (S) [Mass/Vol] 3.7 g/dL Normal The [facility] Comment on above: Performed By: #### C OSWALD ADAIR TERRENCE ####[facility] Fdbrrdzbtg8396 [place] [address]Dr. Chrissy Frazier Glucose [Mass/Vol] 115 mg/dL Critically high 74-106 [facility] Comment on above: Performed By: #### C OSWALD ADAIR, TERRENCE ####[facility] Bhkwhdiypz[address] [place], [place] [address]Dr. Chrissy Frazier Potassium [Moles/Vol] 3.3 mmol/L Critically low 3.5-5.1 The [facility] Comment on above: Performed By: #### C TESSA ADAIRA, TERRENCE ####[facility] Ommnzpcqlm0598 [place] [address]Dr. Chrissy Frazier Protein [Mass/Vol] 7.1 g/dL Normal 6.4-8.2 [facility] Comment on above: Performed By: #### C MP, LIPA, TERRENCE ####[facility] Pntpkaiofz[address] [place], [place] [address]Dr. Chrissy Frazier Sodium [Moles/Vol] 140 mmol/L Normal 136-145 [facility] Comment on above: Performed By: #### C MP, LIPA, TERRENCE ####[facility] Mftgsrqjau1440[address] [place], [place] [address]Dr. Chrissy Frazier Urea nitrogen [Mass/Vol] 10.0 mg/dL Normal 7.0-18.0 The [facility] Comment on above: Performed By: #### C MP, LIPA, TERRENCE ####[facility] Tjilrkwqbu[address] [place], [place] [address]Dr. Chrissy Frazier Urea nitrogen/Creatinine [Mass ratio] 10.2 mg/mg Normal The [facility] Comment on above: Performed By: #### C MP, LIPA, TERRENCE ####[facility] Nbjukyrdwb4[address] [place], [place] [address]Dr. Chrissy Frazier AMYLASEon 10-23-2022 Amylase [Catalytic activity/Vol] 31 U/L Normal 25-115 The [facility] Comment on above: Performed By: #### C MP, LIPA, TERRENCE ####[facility] Bwtdenhtas[address] [place], [place] [address]Dr. Chrissy Frazier CBC AUTO DIFFon 10-23-2022 BASO # 0.1 103/ul Normal 0.0-0.1 [place] Comment on above: Performed By: #### C BC ####[facility] Slftrgmier[address] [place], [place] [address]Dr. Chrissy Frazier Basophils/100 WBC (Bld) 0.3 % Normal 0.2-2.0 [place] Comment on above: Performed By: #### C BC ####[facility] Bpxryseyjd40[address] [place], [place] [address]Dr. Chrissy Frazier EO # 0.1 103/ul Normal 0.0-0.7 The [facility] Comment on above: Performed By: #### C BC ####[facility] Pjpzkgulbk1776 [place] [address]Dr. Chrissy Frazier Eosinophils/100 WBC (Bld) 0.3 % Critically low 0.9-7.0 The [facility] Comment on above: Performed By: #### C BC ####[facility] Txqjcxiwog3292 [place] [address]Dr. Chrissy Frazier Erythrocyte distribution width (RBC) [Ratio] 14.5 % Normal 11.0-15.0 The [facility] Comment on above: Performed By: #### C BC ####[facility] Aihyzqzmqe8980 [place] [address]Dr. Chrissy Frazier Hematocrit (Bld) [Volume fraction] 44.0 % Normal 42.0-54.0 The [facility] Comment on above: Performed By: #### C BC ####[facility] Cbwtzxeabk0218 [place] [address]Dr. Chrissy Frazier Hemoglobin (Bld) [Mass/Vol] 14.8 g/dL Normal 14.0-18.0 The [facility] Comment on above: Performed By: #### C BC ####[facility] Pgnnqwbatv9533 [place] [address]Dr. Chrissy Frazier IG # 0.09 10e3/ul Critically high 0.00-0.03 [facility] Comment on above: Performed By: #### C BC ####[facility] Dzadjvusaq6364 [place] [address]Dr. Chrissy Frazier IG % 0.5 % Normal 0.0-0.5 The [facility] Comment on above: Performed By: #### C BC ####[facility] Ucpywxokza8303 [place] [address]Dr. Chrissy Frazier LYMPH # 3.6 103/ul Normal 1.2-3.8 The [facility] Comment on above: Performed By: #### C BC ####[facility] Appvzkyonp0322 [place] [address]Dr. Tishrowan Frazier Lymphocytes/100 WBC (Bld) 19.4 % Critically low 20.5-60.0 The [facility] Comment on above: Performed By: #### C BC ####[facility] Jdrowoywon9951 [place] [address]Dr. Tishrowan Frazier MANUAL DIFF REQ NO Normal [facility] Comment on above: Performed By: #### C BC ####[facility] Kguutqwmsx9825 [place] [address]Dr. Chrissy Freddie MCH (RBC) [Entitic mass] 28.1 pg Normal 25.9-34.0 The [facility] Comment on above: Performed By: #### C BC ####[facility] Wdhuvodcfo[address] [place], [place] [address]Dr. Chrissy Frazier MCHC (RBC) [Mass/Vol] 33.6 g/dL Normal 29.9-35.2 The [facility] Comment on above: Performed By: #### C BC ####[facility] Vsbzuxrigu[address] [place], [place] [address]Dr. Chrissy Frazier MCV (RBC) [Entitic vol] 83.5 fL Normal 80.0-94.0 The [facility] Comment on above: Performed By: #### C BC ####[facility] Hitmvutson[address] [place], [place] [address]Dr. Chrissy Frazier MONO # 0.9 103/ul Critically high 0.3-0.8 [facility] Comment on above: Performed By: #### C BC ####[facility] Mnvfevshfg[address] [place], [place] [address]Dr. Chrissy Frazier Monocytes/100 WBC (Bld) 4.9 % Normal 1.7-12.0 The [facility] Comment on above: Performed By: #### C BC ####[facility] Otvenhmzsb[address] [place], [place] [address]Dr. Chrissy Frazier NEUT # 13.9 103/ul Critically high 1.4-6.5 The [facility] Comment on above: Performed By: #### C BC ####[facility] Hniawxlckd1863 [place] [address]Dr. Chrissy Frazier Neutrophils/100 WBC (Bld) 74.6 % Normal 43.0-75.0 The [facility] Comment on above: Performed By: #### C BC ####[facility] Peueuiwdng0452 [place] [address]Dr. Chrissy Frazier Platelet mean volume (Bld) [Entitic vol] 10.5 fL Normal 9.5-13.5 The [facility] Comment on above: Performed By: #### C BC ####[facility] Fykdlzgxiy3678 [place] [address]Dr. Chrissy Frazier PLT 402 103/ul Normal 150-450 The [facility] Comment on above: Performed By: #### C BC ####[facility] Imwiaxuvyu[address] [place], [place] [address]Dr. Chrissy Frazier RBC 5.27 106/ul Normal 4.70-6.10 The [facility] Comment on above: Performed By: #### C BC ####[facility] Ofhmvhpzla[address] [place], [place] [address]Dr. Chrissy Frazier WBC 18.6 103/ul Critically high 4.0-11.0 The [facility] Comment on above: Performed By: #### C BC ####[facility] [facility] [id number] [place], [place] [id number]. Chrissy Frazier CULTURE BLOODon 10-23-2022 Microscopic examination of blood, culture Culture Observations: NO GROWTH AT 5 DAYS. Normal [place] Comment on above: Performed By: #### B LDCX2 ####[facility] Rxgatpdyzp64[address] [place] [id number]. Chrissy Frazier Microscopic examination of blood, culture Culture Observations: NO GROWTH AT 5 DAYS. Normal [place] Comment on above: Performed By: #### B LDCX1 ####[facility] Vubvdmgzww[address] [place], [place] [id number]. Chrissy Frazier CULTURE URINEon 10-23-2022 CULTURE URINE Culture Observations: NO GROWTH. Normal [place] Comment on above: Performed By: #### U RCX ####[facility] Lfirkmkdxz[address] [place], [place] [address]Dr. Chrissy Frazier Covid-19 PCR (CVDTB)on SARS-CoV-2 (COVID-19) RNA RHIANNON+probe Ql (Unsp spec) Not detected Normal NOT DETECTED The [facility] Comment on above: Result Comment: When diagnostic [...] for this test is supported by the [employer] Installer of Health and Human Service's declaration that [...] be used). Performed By: #### C VDTBH ####[facility] Njnktxpmy[address] [place] [address]. Chrissy Frazier INFLUENZA A AND B AGon 10-23 INFLUANEGH SEE BELOW Normal The [facility] Comment on above: Result Comment: Nega tive for Flu A protein angiten. Infection due to Flu A cannot be ruled out. Flu A angiten in the sample may be below the detection limit of the test. Performed By: #### I NFLUAB ####[facility] Ugojdzlnlc[address] [place], [place] [address]Dr. Chrissy Frazier INFLUBNEGH SEE BELOW Normal The [facility] Comment on above: Result Comment: Nega tive for Flu B protein antigen. Infection due to Flu B cannot be ruled out. Flu B antigen in the sample may be below the detection limit of the test. Performed By: #### I NFLUAB ####[facility] Augqxwqryi[address] [place], [place] [address]Dr. Chrissy [facility] INFLUENZA A AG Negative Normal NEGATIVE SEE COMMENT The [facility] Comment on above: Performed By: #### I NFLUAB ####[facility] Kaejrmwwxx[address] [place] [address]Dr. Chrissy Frazier INFLUENZA B AG Negative Normal NEGATIVE SEE COMMENT The [facility] Comment on above: Performed By: #### I NFLUAB ####[facility] Sdrnjtrgtc7760 [place] [address]Dr. Chrissy Frazier INTERNAL CONTROLS Within Normal Limits Normal Wi thin Normal Limits The [facility] Comment on above: Performed By: #### I NFLUAB ####[facility] Ubtiiatmxc8166[address] [place], [place] [address]Dr. Chrissy Frazier LACTATE/LACTIC ACIDon 2021 Lactate [Moles/Vol] 2.1 mmol/L Critically high 0.4-1.9 [place] Comment on above: Performed By: #### L ACT ####[facility] Gmeqivmtdz250[address] [place], [place] [address]Dr. Chrissy Frazier Lactate [Moles/Vol] 6.9 mmol/L Critically high 0.4-1.9 [place] Comment on above: Performed By: #### L ACT ####[facility] Gtujexciwq46[address] [place], [place] [address]Dr. Chrissy Frazier LIPASEon 10-23-2022 Lipase [Catalytic activity/Vol] 72.0 U/L Critically low 73.0-393.0 [place] Comment on above: Performed By: #### C OSWALD ADAIR AMY ####[facility] Pwnqejheyd[address] [place], [place] [address]Dr. Chrissy Frazier PROF 14(COMP METB)on 022 Albumin [Mass/Vol] 3.9 g/dL Normal 3.4-5.0 The [facility] Comment on above: Performed By: #### C OSWALD ADAIR AMY ####[facility] Twnggskiiw84[address] [place], [place] [address]Dr. Chrissy Frazier Albumin/Globulin [Mass ratio] 0.9 {ratio} Normal [place] Comment on above: Performed By: #### C OSWALD ADAIR AMY ####[facility] Krqjfslubo[address] [place] [address]Dr. Chrissy Frazier ALP [Catalytic activity/Vol] 82 U/L Normal 46-116 The [facility] Comment on above: Performed By: #### C MP, LIPA, TERRENCE ####[facility] Alnedqxihp4[address] [place] [address]Dr. Chrissy Frazier ALT [Catalytic activity/Vol] 25 U/L Normal 16-63 The [facility] Comment on above: Performed By: #### C MP, LIPA, TERRENCE ####[facility] Nmogakszao[address] [place] [address]Dr. Chrissy Frazier Anion gap [Moles/Vol] 18.1 mmol/L Normal [place] Comment on above: Performed By: #### C MP, LIPA, TERRENCE ####[facility] Luqypdcwyj75[address] [place], [place] [address]Dr. Chrissy Frazier AST [Catalytic activity/Vol] 17 U/L Normal 15-37 [place] Comment on above: Performed By: #### C MP, LIPA, TERRENCE ####[facility] Votsjwyced16[address] [place], [place] [address]Dr. Chrissy Frazier Bilirubin [Mass/Vol] 0.5 mg/dL Normal 0.2-1.0 [place] Comment on above: Performed By: #### C MP, LIPA, TERRENCE ####[facility] Hufntlbzdn[address] [place] [address]Dr. Chrissy Frazier Calcium [Mass/Vol] 9.1 mg/dL Normal 8.5-10.1 [facility] Comment on above: Performed By: #### C MP, LIPA, TERRENCE ####[facility] Tyudrwfeoa7[address] [place] [address]Dr. Chrissy Frazier Chloride [Moles/Vol] 101 mmol/L Normal 98-107 [place] Comment on above: Performed By: #### C MP, LIPA, TERRENCE ####[facility] Inpfoouavt13[address] [place] [address]Dr. Chrissy Frazier CO2 [Moles/Vol] 19.2 mmol/L Critically low 21.0-32.0 [place] Comment on above: Performed By: #### C OSWALD ADAIR, TERRENCE ####[facility] Nabbkganzv4[address] [place] [address]Dr. Chrissy Frazier Creatinine [Mass/Vol] 1.72 mg/dL Critically high 0.70-1.30 [place] Comment on above: Performed By: #### C TESSA ADAIRA, TERRENCE ####[facility] Gsskeevlfe4[address] [place] [address]Dr. Chrissy Frazier EGFR-AF CROATIAN 56 mL/min/1.73m2 Critically low >=60 [place] Comment on above: Performed By: #### C OSWALD ADAIR, TERRENCE ####[facility] Vnabqqgfhw[address] [place], [place] [address]Dr. Chrissy Frazier EGFR-NON AF CROATIAN 46 mL/min/1.73m2 Critically low >=60 [place] Comment on above: Performed By: #### C MANA LIPA, TERRENCE ####[facility] Uozzbhhjhg7[address] [place], [place] [address]Dr. Chrissy Frazier Globulin (S) [Mass/Vol] 4.2 g/dL Normal [place] Comment on above: Performed By: #### C OSWALD ADAIR, TERRENCE ####[facility] Zeyzizwzzp01[address] [place] [address]Dr. Chrissy Frazier Glucose [Mass/Vol] 126 mg/dL Critically high 74-106 [facility] Comment on above: Performed By: #### C MANA LIPA, TERRENCE ####[facility] Zxsloquyel4547 [place] [address]Dr. Chrissy Frazier Potassium [Moles/Vol] 3.3 mmol/L Critically low 3.5-5.1 [place] Comment on above: Performed By: #### C MANA LIPA, TERRENCE ####[facility] Dtbxhxqidk4669 [place] [address]Dr. Tishrowan Frazier Protein [Mass/Vol] 8.1 g/dL Normal 6.4-8.2 The [facility] Comment on above: Performed By: #### C MANA LIPA, TERRENCE ####[facility] Cezffxklso750[address] [place] [address]Dr. Chrissy Frazier Sodium [Moles/Vol] 135 mmol/L Critically low 136-145 Th e [facility] Comment on above: Performed By: #### C MANA LIPA, TERRENCE ####[facility] Hftjobxsgb88[address] [place], [place] [address]Dr. Chrissy Frazier Urea nitrogen [Mass/Vol] 13.0 mg/dL Normal 7.0-18.0 [place] Comment on above: Performed By: #### C MANA LIPA, TERRENCE ####[facility] Iannwbyesg[address] [place], [place] [address]Dr. Chrissy Frazier Urea nitrogen/Creatinine [Mass ratio] 7.6 mg/mg Normal The [facility] Comment on above: Performed By: #### C MANA LIPBean, TERRENCE ####[facility] Hycazxupfg[address] [place], [place] [address]Dr. Chrissy Frazier UA RANDOM W/MICROSCOPICon BACTERIA NONE SEEN Normal NONE SEEN The [facility] Comment on above: Performed By: #### U AMIC ####[facility] Uixjujahia[address] [place], [place] [address]Dr. Chrissy Frazier Bilirubin Ql (U) Negative Normal NEGATIVE The [facility] Comment on above: Performed By: #### U AMIC ####[facility] Ecybmykfkn20[address] [place], [place] [address]Dr. Chrissy Frazier CAST NONE SEEN Normal NONE SEEN The [facility] Comment on above: Performed By: #### U AMIC ####[facility] Ryipdyghfn8156[address] [place], [place] [address]Dr. Chrissy Frazier Clarity (U) CLEAR Normal CLEAR The [facility] Comment on above: Performed By: #### U AMIC ####[facility] Lkkjrowwcg75[address] [place], [place] [address]Dr. Chrissy Frazier Color (U) LT. YELLOW Normal YELLOW The [facility] Comment on above: Performed By: #### U AMIC ####[facility] Kqukpthajv3339[address] [place], [place] [address]Dr. Chrissy Frazier Crystals LM Nom (Urine sed) NONE SEEN Normal NONE SEEN The [facility] Comment on above: Performed By: #### U AMIC ####[facility] Xxnmhaulag4736[address] [place], [place] [address]Dr. Chrissy Frazier Epithelial cells LM Ql (Urine sed) FEW Abnormal NONE SEEN /RARE The [facility] Comment on above: Performed By: #### U AMIC ####[facility] Mokgxxlfme2587[address] [place], [place] [address]Dr. Chrissy Frazier Glucose Ql (U) Negative Normal NEGATIVE The [facility] Comment on above: Performed By: #### U AMIC ####[facility] Muiyxyiqjd740[address] [place], [place] [address]Dr. Chrissy Frazier Hemoglobin Ql (U) Negative Normal NEGATIVE The [facility] Comment on above: Performed By: #### U AMIC ####[facility] Zhtaiqticf344[address] [place], [place] [address]Dr. Chrissy Frazier Ketones Ql (U) 15 mg/dl Abnormal NEGATIVE The [facility] Comment on above: Performed By: #### U AMIC ####[facility] Tdkbutueof1730[address] [place], [place] [address]Dr. Chrissy Frazier LEUKOCYTES Negative Normal NEGATIVE The [facility] Comment on above: Performed By: #### U AMIC ####[facility] Ztvpacggoj5026[address] [place], [place] [address]Dr. Chrissy Frazier MUCOUS NONE SEEN Normal NONE SEEN The [facility] Comment on above: Performed By: #### U AMIC ####[facility] Yuufgwikkb5824[address] [place], [place] [address]Dr. Chrissy Frazier Nitrite Ql (U) Negative Normal NEGATIVE The [facility] Comment on above: Performed By: #### U AMIC ####[facility] Vqacbzeety5664[address] [place], [place] [address]Dr. Chrissy Frazier pH (U) 6.0 [pH] Normal 5-9 The [facility] Comment on above: Performed By: #### U AMIC ####[facility] Ijhqjwcwwe5927[address] [place], [place] [address]Dr. Chrissy Frazier RBC 0-2 Normal 0-2 The [facility] Comment on above: Performed By: #### U AMIC ####[facility] Cdhudtsyrp0738 [place] [address]Dr. Chrissy Frazier SPEC GRAVITY 1.010 Normal 1.005-<=1.025 The [facility] Comment on above: Performed By: #### U AMIC ####[facility] Lyapouupoi[address] [place] [address]Dr. Chrissy Freddie UA PROTEIN Negative Normal NEGATIVE/ TRACE The [facility] Comment on above: Performed By: #### U AMIC ####[facility] Zdqntgnlfr9645 [place] [address]Dr. Chrissy Freddie Urobilinogen Qn (U) 0.2 {Estrellita'U}/dL Normal 0.2 - 1. 0 The [facility] Comment on above: Performed By: #### U AMIC ####[facility] Mipmsmjncp04[address] [place], [place] [address]Dr. Chrissy Freddie WBC NONE SEEN Normal NONE SEEN The [facility] Comment on above: Performed By: #### U AMIC ####[facility] Fxcndujhqb0259[address] [place], [place] [address]Dr. Chrissy Freddie AMYLASEon 10-22-2022 Amylase [Catalytic activity/Vol] 28 U/L Normal 25-115 The [facility] Comment on above: Performed By: #### L IPA, CMP, TERRENCE ####[facility] Gvwkfpfdsf[address] [place], [place] [address]Dr. Chrissy Freddie CBC AUTO DIFFon 10-22-2022 BASO # 0.0 103/ul Normal 0.0-0.1 The [facility] Comment on above: Performed By: #### C BC ####[facility] Yudleyxpwy5094[address] [place], [place] [address]Dr. Tishrowan Frazier Basophils/100 WBC (Bld) 0.2 % Normal 0.2-2.0 The [facility] Comment on above: Performed By: #### C BC ####[facility] Msyzrwefdw284[address] [place], [place] [address]Dr. Chrissy Frazier EO # 0.0 103/ul Normal 0.0-0.7 The [facility] Comment on above: Performed By: #### C BC ####[facility] Bxraoyabva5226[address] [place], [place] [address]Dr. Chrissy Frazier Eosinophils/100 WBC (Bld) 0.1 % Critically low 0.9-7.0 The [facility] Comment on above: Performed By: #### C BC ####[facility] Xzbfgofyek8[address] [place], [place] [address]Dr. Chrissy Frazier Erythrocyte distribution width (RBC) [Ratio] 14.4 % Normal 11.0-15.0 The [facility] Comment on above: Performed By: #### C BC ####[facility] Qycbojsfsv2845[address] [place], [place] [address]Dr. Chrissy Frazier Hematocrit (Bld) [Volume fraction] 45.2 % Normal 42.0-54.0 [place] Comment on above: Performed By: #### C BC ####[facility] Mghrzjsqqr6098[address] [place], [place] [address]Dr. Chrissy Frazier Hemoglobin (Bld) [Mass/Vol] 15.4 g/dL Normal 14.0-18.0 The [facility] Comment on above: Performed By: #### C BC ####[facility] Bjrkhyzofz2006[address] [place], [place] [address]Dr. Tishrowan Freddie IG # 0.07 10e3/ul Critically high 0.00-0.03 [facility] Comment on above: Performed By: #### C BC ####[facility] Qpbgvkuprs7307[address] [place], [place] [address]Dr. Chrissy Frazier IG % 0.4 % Normal 0.0-0.5 The [facility] Comment on above: Performed By: #### C BC ####[facility] Bbwsxhlqwt7355[address] [place], [place] [address]Dr. Chrissy Frazier LYMPH # 2.0 103/ul Normal 1.2-3.8 The [facility] Comment on above: Performed By: #### C BC ####[facility] Helahqiuyc303[address] [place], [place] [address]DrNancy Frazier Lymphocytes/100 WBC (Bld) 12.2 % Critically low 20.5-60.0 The [facility] Comment on above: Performed By: #### C BC ####[facility] Jbngqxzifd9691 [place] [address]DrNancy Frazier MANUAL DIFF REQ NO Normal The [facility] Comment on above: Performed By: #### C BC ####[facility] Bifzknhvhh8380 [place] [address]DrNancy Frazier MCH (RBC) [Entitic mass] 28.3 pg Normal 25.9-34.0 The [facility] Comment on above: Performed By: #### C BC ####[facility] Efjoodtbrw4736[address] [place], [place] [address]DrNancy Frazier MCHC (RBC) [Mass/Vol] 34.1 g/dL Normal 29.9-35.2 The [facility] Comment on above: Performed By: #### C BC ####[facility] Xtnqkfqlrq8428[address] [place], [place] [address]DrNancy Frazier MCV (RBC) [Entitic vol] 82.9 fL Normal 80.0-94.0 The [facility] Comment on above: Performed By: #### C BC ####[facility] Onyynjeplt3169[address] [place], [place] [address]DrNancy Frazier MONO # 0.3 103/ul Normal 0.3-0.8 The [facility] Comment on above: Performed By: #### C BC ####[facility] Pwrwpuisgd3315[address] [place], [place] [address]DrNancy Frazier Monocytes/100 WBC (Bld) 2.0 % Normal 1.7-12.0 The [facility] Comment on above: Performed By: #### C BC ####[facility] Gsokvjzdjo9[address] [place], [place] [address]DrNancy Frazier NEUT # 14.0 103/ul Critically high 1.4-6.5 The [facility] Comment on above: Performed By: #### C BC ####[facility] Kdhonlcmbn2226[address] [place], [place] [address]DrNancy Frazier Neutrophils/100 WBC (Bld) 85.1 % Critically high 43.0-75.0 The [facility] Comment on above: Performed By: #### C BC ####[facility] Rtyepffuap22[address] [place] [address]Dr. Chrissy Frazier Platelet mean volume (Bld) [Entitic vol] 10.6 fL Normal 9.5-13.5 The [facility] Comment on above: Performed By: #### C BC ####[facility] Pdpfplgnnc8179 [place] [address]Dr. Chrissy Frazier PLT 411 103/ul Normal 150-450 The [facility] Comment on above: Performed By: #### C BC ####[facility] Xaxpwkvjkt8536[address] [place], [place] [address]Dr. Chrissy Frazier RBC 5.45 106/ul Normal 4.70-6.10 The [facility] Comment on above: Performed By: #### C BC ####[facility] Soupyhvapj1486[address] [place], [place] [address]DrNancy Chrissy Frazier WBC 16.5 103/ul Critically high 4.0-11.0 The [facility] Comment on above: Performed By: #### C BC ####[facility] Cixppbjbxc[address] [place], [place] [address]DrNancy Chrissy Frazier LIPASEon 10-22-2022 Lipase [Catalytic activity/Vol] 57.0 U/L Critically low 73.0-393.0 [place] Comment on above: Performed By: #### L IPA CMP, TERRENCE ####[facility] Iycazueqbc4188 [place] [address]DrNancy Tishrowan Frazier PROF 14(COMP METB)on 022 Albumin [Mass/Vol] 4.2 g/dL Normal 3.4-5.0 The [facility] Comment on above: Performed By: #### L IPA CMP, TERRENCE ####[facility] Hqhviqsvmv6646 [place] [address]DrNancy Chrissy Freddie Albumin/Globulin [Mass ratio] 1.0 {ratio} Normal [place] Comment on above: Performed By: #### L IPA CMP, TERRENCE ####[facility] Prmrvcfldb5720 [place] [address]Dr. Chrissy Frazier ALP [Catalytic activity/Vol] 92 U/L Normal 46-116 The [facility] Comment on above: Performed By: #### L IPA, CMP, TERRENCE ####[facility] Fpxezmqlke6760 [place] [address]Dr. Chrissy Frazier ALT [Catalytic activity/Vol] 26 U/L Normal 16-63 The [facility] Comment on above: Performed By: #### L IPA, CMP, TERRENCE ####[facility] Fmptwggxsg3576 [place] [address]Dr. Chrissy Frazier Anion gap [Moles/Vol] 19.5 mmol/L Normal [place] Comment on above: Performed By: #### L IPA, CMP, TERRENCE ####[facility] Keevskmvpr5[address] [place], [place] [address]Dr. Chrissy Frazier AST [Catalytic activity/Vol] 19 U/L Normal 15-37 [place] Comment on above: Performed By: #### L IPA, CMP, TERRENCE ####[facility] Cgdfymtynj8386[address] [place], [place] [address]Dr. Chrissy Frazier Bilirubin [Mass/Vol] 0.7 mg/dL Normal 0.2-1.0 [place] Comment on above: Performed By: #### L IPA, CMP, TERRENCE ####[facility] Ahayiwreke2857[address] [place], [place] [address]Dr. Chrissy Frazier Calcium [Mass/Vol] 9.6 mg/dL Normal 8.5-10.1 [facility] Comment on above: Performed By: #### L IPA, CMP, TERRENCE ####[facility] Kaomqiotdo[address] [place] [address]Dr. Chrissy Frazier Chloride [Moles/Vol] 102 mmol/L Normal 98-107 [place] Comment on above: Performed By: #### L IPA, CMP, TERRENCE ####[facility] Skgvrfryjc6207 [place] [address]Dr. Chrissy Frazier CO2 [Moles/Vol] 19.1 mmol/L Critically low 21.0-32.0 The [facility] Comment on above: Performed By: #### L IPA, CMP, TERRENCE ####[facility] Rnxgvxnvct3710 [place] [address]Dr. Chrissy Freddie Creatinine [Mass/Vol] 1.47 mg/dL Critically high 0.70-1.30 [place] Comment on above: Performed By: #### L IPA, CMP, TERRENCE ####[facility] Yaqytpvyzb0254 [place] [address]Dr. Tishrowan Freddie EGFR-AF CROATIAN >60 Normal >=60 [facility] Comment on above: Performed By: #### L IPA, CMP, TERRENCE ####[facility] Fqmcsozmcq65[address] [place], [place] [address]Dr. Chrissy Frazier EGFR-NON AF CROATIAN 56 mL/min/1.73m2 Critically low >=60 [place] Comment on above: Performed By: #### L IPA, CMP, TERRENCE ####[facility] Frxhghwbhk9146[address] [place], [place] [address]Dr. Chrissy Frazier Globulin (S) [Mass/Vol] 4.3 g/dL Normal [place] Comment on above: Performed By: #### L IPA CMP, TERRENCE ####[facility] Tyoidbditn4705[address] [place], [place] [address]Dr. Chrissy Frazier Glucose [Mass/Vol] 189 mg/dL Critically high 74-106 [facility] Comment on above: Performed By: #### L IPA, CMP, TERRENCE ####[facility] Budzwxpwbx7667[address] [place], [place] [address]Dr. Chrissy Frazier Potassium [Moles/Vol] 4.6 mmol/L Normal 3.5-5.1 [place] Comment on above: Performed By: #### L IPA, CMP, TERRENCE ####[facility] Vspjhifpsi27[address] [place], [place] [address]Dr. Chrissy Frazier Protein [Mass/Vol] 8.5 g/dL Critically high 6.4-8.2 [facility] Comment on above: Performed By: #### L IPA, CMP, TERRENCE ####[facility] Upgvdqmevc[address] [place], [place] [address]Dr. Chrissy Frzaier Sodium [Moles/Vol] 136 mmol/L Normal 136-145 [facility] Comment on above: Performed By: #### L IPA CMP, TERRENCE ####[facility] Adzzhzgyuy2473 [place] [address]Dr. Chrissy Frazier Urea nitrogen [Mass/Vol] 16.0 mg/dL Normal 7.0-18.0 [place] Comment on above: Performed By: #### L IPA CMP, TERRENCE ####[facility] Zfjcbillfv497[address] [place], [place] [address]Dr. Chrissy Frazier Urea nitrogen/Creatinine [Mass ratio] 10.9 mg/mg Normal [place] Comment on above: Performed By: #### L IPA CMP, TERRENCE ####[facility] Qfkdvqklly6790[address] [place], [place] [address]Dr. Chrissy Freddie AMYLASEon 09-03-2022 Amylase [Catalytic activity/Vol] 25 U/L Normal 25-115 [place] Comment on above: Performed By: #### L IPA TERRENCE, CMP ####[facility] Xqjcxsmotj7064[address] [place], [place] [address]Dr. Chrissy Freddie CBC AUTO DIFFon 09-03-2022 BASO # 0.0 103/ul Normal 0.0-0.1 [place] Comment on above: Performed By: #### C BC ####[facility] Ntrdatprfv[address] [place], [place] [address]Dr. Chrissy Freddie Basophils/100 WBC (Bld) 0.1 % Critically low 0.2-2.0 The [facility] Comment on above: Performed By: #### C BC ####[facility] Fnslwragnn23[address] [place], [place] [address]Dr. Tishrowan Frazier EO # 0.0 103/ul Normal 0.0-0.7 The [facility] Comment on above: Performed By: #### C BC ####[facility] Rtkusuizwu40[address] [place], [place] [address]Dr. Tishrowan Freddie Eosinophils/100 WBC (Bld) 0.1 % Critically low 0.9-7.0 The [facility] Comment on above: Performed By: #### C BC ####[facility] Sooqswjeln16[address] [place] [address]Dr. Chrissy Frazier Erythrocyte distribution width (RBC) [Ratio] 14.0 % Normal 11.0-15.0 [place] Comment on above: Performed By: #### C BC ####[facility] Loxdgugxuj5[address] [place], [place] [address]Dr. Chrissy Frazier Hematocrit (Bld) [Volume fraction] 42.5 % Normal 42.0-54.0 [place] Comment on above: Performed By: #### C BC ####[facility] Uyizydictq[address] [place], [place] [address]Dr. Chrissy Frazier Hemoglobin (Bld) [Mass/Vol] 14.1 g/dL Normal 14.0-18.0 [place] Comment on above: Performed By: #### C BC ####[facility] Xrdfpzpdug[address] [place], [place] [address]Dr. Chrissy Frazier IG # 0.06 10e3/ul Critically high 0.00-0.03 [facility] Comment on above: Performed By: #### C BC ####[facility] Oizjucpvhw16[address] [place], [place] [address]Dr. Chrissy Frazier IG % 0.4 % Normal 0.0-0.5 [place] Comment on above: Performed By: #### C BC ####[facility] Kzrmipkvcs04[address] [place], [place] [address]Dr. Chrissy Frazier LYMPH # 2.5 103/ul Normal 1.2-3.8 The [facility] Comment on above: Performed By: #### C BC ####[facility] Cgljlfdnby[address] [place], [place] [address]Dr. Chrissy Frazier Lymphocytes/100 WBC (Bld) 16.3 % Critically low 20.5-60.0 [place] Comment on above: Performed By: #### C BC ####[facility] Zgyvmowicm24[address] [place], [place] [address]Dr. Chrissy Frazier MANUAL DIFF REQ NO Normal [facility] Comment on above: Performed By: #### C BC ####[facility] Nhhstnjzoo[address] [place] [id number]. Chrissy Freddie MCH (RBC) [Entitic mass] 28.1 pg Normal 25.9-34.0 [place] Comment on above: Performed By: #### C BC ####[facility] Cvbddblaye2[address] [place] [id number]. Chrissy Freddie MCHC (RBC) [Mass/Vol] 33.2 g/dL Normal 29.9-35.2 [place] Comment on above: Performed By: #### C BC ####[facility] Pyfiyexjch[address] [place] [address]Dr. Chrissy Freddie MCV (RBC) [Entitic vol] 84.8 fL Normal 80.0-94.0 The [facility] Comment on above: Performed By: #### C BC ####[facility] Swzzhhokow5[address] [place], [place] [address]DrNancy Frazier MONO # 1.1 103/ul Critically high 0.3-0.8 The [facility] Comment on above: Performed By: #### C BC ####[facility] Mqjdqylccg5706[address] [place], [place] [address]Dr. Tishrowan Frazier Monocytes/100 WBC (Bld) 7.4 % Normal 1.7-12.0 The [facility] Comment on above: Performed By: #### C BC ####[facility] Awrsgdzsnq9[address] [place], [place] [address]Dr. Chrissy Frazier NEUT # 11.5 103/ul Critically high 1.4-6.5 The [facility] Comment on above: Performed By: #### C BC ####[facility] Xqaprduuou[address] [place], [place] [id number] Frazier Neutrophils/100 WBC (Bld) 75.7 % Critically high 43.0-75.0 The [facility] Comment on above: Performed By: #### C BC ####[facility] Kexdbwpvwg[address] [place] [address]DrNancy Frazier Platelet mean volume (Bld) [Entitic vol] 10.6 fL Normal 9.5-13.5 The [facility] Comment on above: Performed By: #### C BC ####[facility] Usfdsgaasp[address] [place] [address]Dr. Chrissy Frazier PLT 310 103/ul Normal 150-450 The [facility] Comment on above: Performed By: #### C BC ####[facility] Okmrmjvwja8761 [place] [address]Dr. Chrissy Frazier RBC 5.01 106/ul Normal 4.70-6.10 [place] Comment on above: Performed By: #### C BC ####[facility] Jiaftmmuiu0372 [place] [address]Dr. Chrissy Frazier WBC 15.2 103/ul Critically high 4.0-11.0 The [facility] Comment on above: Performed By: #### C BC ####[facility] Cbbqcrgxse486[address] [place], [place] [address]Dr. Chrissy Frazier LIPASEon 09-03-2022 Lipase [Catalytic activity/Vol] 46.0 U/L Critically low 73.0-393.0 [place] Comment on above: Performed By: #### L TERRENCE VICTORIA, CMP ####[facility] Jzzkwhhhfd50[address] [place], [place] [address]Dr. Chrissy Frazier PROF 14(COMP METB)on 022 Albumin [Mass/Vol] 3.7 g/dL Normal 3.4-5.0 [facility] Comment on above: Performed By: #### L TERRENCE VICTORIA, CMP ####[facility] Gunfzpoufl[address] [place] [address]Dr. Chrissy Frazier Albumin/Globulin [Mass ratio] 1.0 {ratio} Normal The [facility] Comment on above: Performed By: #### L TERRENCE VICTORIA, CMP ####[facility] Dcckqhestw95[address] [place], [place] [address]Dr. Chrissy Frazier ALP [Catalytic activity/Vol] 65 U/L Normal 46-116 The [facility] Comment on above: Performed By: #### L TERRENCE VICTORIA, CMP ####[facility] Rligwcxmtb39[address] [place], [place] [address]Dr. Chrissy Frazier ALT [Catalytic activity/Vol] 42 U/L Normal 16-63 The [facility] Comment on above: Performed By: #### L TERRENCE VICTORIA, CMP ####[facility] Uycfopgozb27[address] [place] [address]Dr. Chrissy Frazier Anion gap [Moles/Vol] 14.4 mmol/L Normal [place] Comment on above: Performed By: #### L TERRENCE VICTORIA, CMP ####[facility] Joqmpjasgo1690 [place] [address]Dr. Chrissy Frazier AST [Catalytic activity/Vol] 16 U/L Normal 15-37 [place] Comment on above: Performed By: #### L TERRENCE VICTORIA, CMP ####[facility] Yaxsbgcjhi4206 [place] [address]Dr. Chrissy Frazier Bilirubin [Mass/Vol] 0.4 mg/dL Normal 0.2-1.0 [place] Comment on above: Performed By: #### L TERRENCE VICTORIA, CMP ####[facility] Svkkammhyt11[address] [place] [address]Dr. Chrissy Frazier Calcium [Mass/Vol] 8.7 mg/dL Normal 8.5-10.1 [facility] Comment on above: Performed By: #### L TERRENCE VICTORIA, CMP ####[facility] Avzwsjgtlg0163 [place] [address]Dr. Chrissy Frazier Chloride [Moles/Vol] 105 mmol/L Normal 98-107 The [facility] Comment on above: Performed By: #### L TERRENCE VICTORIA, CMP ####[facility] Gwzrmhciox4169 [place] [address]Dr. Chrissy Frazier CO2 [Moles/Vol] 22.6 mmol/L Normal 21.0-32.0 The [facility] Comment on above: Performed By: #### L TERRENCE VICTORIA, CMP ####[facility] Yesjrlbkqr3861 [place] [address]Dr. Chrissy Frazier Creatinine [Mass/Vol] 1.11 mg/dL Normal 0.70-1.30 The [facility] Comment on above: Performed By: #### L TERRENCE VICTORIA, CMP ####[facility] Laguluozdd0376 [place] [id number]. Chrissy Frazier EGFR-AF CROATIAN >60 Normal >=60 [facility] Comment on above: Performed By: #### L TERRENCE VICTORIA, CMP ####[facility] Hukakhtrgl480[address] [place] [address]Dr. Chrissy Frazier EGFR-NON AF CROATIAN >60 Normal >=60 [place] Comment on above: Performed By: #### L TERRENCE VICTORIA, CMP ####[facility] Jlqynyrhve[address] [place] [address]Dr. Chrissy Frazier Globulin (S) [Mass/Vol] 3.7 g/dL Normal [place] Comment on above: Performed By: #### L TERRENCE VICTORIA, CMP ####[facility] Xsvchsjujn1048 [place] [address]Dr. Chrissy Frazier Glucose [Mass/Vol] 121 mg/dL Critically high 74-106 [facility] Comment on above: Performed By: #### L TERRENCE VICTORIA, CMP ####[facility] Vuyckticdd2745 [place] [address]Dr. Chrissy Frazier Potassium [Moles/Vol] 4.0 mmol/L Normal 3.5-5.1 [place] Comment on above: Performed By: #### L TERRENCE VICTORIA, CMP ####[facility] Azrnrcjzoi76[address] [place], [place] [address]Dr. Chrissy Frazier Protein [Mass/Vol] 7.4 g/dL Normal 6.4-8.2 [facility] Comment on above: Performed By: #### L TERRENCE VICTORIA, CMP ####[facility] Mqiaihafmr7058 [place] [address]Dr. Chrissy Frazier Sodium [Moles/Vol] 138 mmol/L Normal 136-145 [facility] Comment on above: Performed By: #### L TERRENCE VICTORIA, CMP ####[facility] Dvkpuuwsqw2562 [place] [address]Dr. Chrissy Frazier Urea nitrogen [Mass/Vol] 6.0 mg/dL Critically low 7.0-18.0 [facility] Comment on above: Performed By: #### L IPA, TERRENCE, CMP ####[facility] Dxmpqzeekj64[address] [place], [place] [address]Dr. Chrissy Frazier Urea nitrogen/Creatinine [Mass ratio] 5.4 mg/mg Normal The [facility] Comment on above: Performed By: #### L IPA, TERRENCE, CMP ####[facility] Uouoymhvvy6[address] [place], [place] [address]Dr. Chrissy Frazier AMYLASEon 09-02-2022 Amylase [Catalytic activity/Vol] 29 U/L Normal 25-115 The [facility] Comment on above: Performed By: #### A MY, CMP, LIPA ####[facility] Zuzguwrgwu15[address] [place], [place] [address]Dr. Chrissy Frazier CBC AUTO DIFFon 09-02-2022 BASO # 0.1 103/ul Normal 0.0-0.1 The [facility] Comment on above: Performed By: #### C BC ####[facility] Xrrfvvxkqv[address] [place], [place] [address]Dr. Chrissy Frazier Basophils/100 WBC (Bld) 0.4 % Normal 0.2-2.0 The [facility] Comment on above: Performed By: #### C BC ####[facility] Ihexcfxtnb04[address] [place], [place] [address]Dr. Chrissy Frazier EO # 0.1 103/ul Normal 0.0-0.7 The [facility] Comment on above: Performed By: #### C BC ####[facility] Ikjbhbekjk7279[address] [place], [place] [address]Dr. Chrissy Frazier Eosinophils/100 WBC (Bld) 0.7 % Critically low 0.9-7.0 The [facility] Comment on above: Performed By: #### C BC ####[facility] Ahzcucqrdt0940[address] [place], [place] [address]Dr. Chrissy Frazier Erythrocyte distribution width (RBC) [Ratio] 13.7 % Normal 11.0-15.0 The [facility] Comment on above: Performed By: #### C BC ####[facility] Fpkopiluvd3[address] [place] [address]Dr. Chrissy Freddie Hematocrit (Bld) [Volume fraction] 48.3 % Normal 42.0-54.0 The [facility] Comment on above: Performed By: #### C BC ####[facility] Gcaucvcqfh9420 [place] [address]Dr. Chrissy Frazier Hemoglobin (Bld) [Mass/Vol] 16.0 g/dL Normal 14.0-18.0 The [facility] Comment on above: Performed By: #### C BC ####[facility] Sprdxgkhbj2436 [place] [address]Dr. Chrissy Frazier IG # 0.09 10e3/ul Critically high 0.00-0.03 [facility] Comment on above: Performed By: #### C BC ####[facility] Miqgksyejl45[address] [place], [place] [address]Dr. Chrissy Frazier IG % 0.5 % Normal 0.0-0.5 The [facility] Comment on above: Performed By: #### C BC ####[facility] Oqprmyolrq8887[address] [place], [place] [address]Dr. Chrissy Frazier LYMPH # 3.7 103/ul Normal 1.2-3.8 The [facility] Comment on above: Performed By: #### C BC ####[facility] Fgittqtmkx5394 [place] [address]Dr. Chrissy Frazier Lymphocytes/100 WBC (Bld) 21.5 % Normal 20.5-60.0 The [facility] Comment on above: Performed By: #### C BC ####[facility] Pqrrgbzkqk37[address] [place] [address]Dr. Chrissy Frazier MANUAL DIFF REQ NO Normal [facility] Comment on above: Performed By: #### C BC ####[facility] Ivkbvoynyv2[address] [place], [place] [address]Dr. Chrissy Frazier MCH (RBC) [Entitic mass] 28.1 pg Normal 25.9-34.0 The [facility] Comment on above: Performed By: #### C BC ####[facility] Ioejsljtae6[address] [place], [place] [address]Dr. Chrissy Frazier MCHC (RBC) [Mass/Vol] 33.1 g/dL Normal 29.9-35.2 The [facility] Comment on above: Performed By: #### C BC ####[facility] Wqhedwutdx89[address] [place] [id number]. Chrissy Frazier MCV (RBC) [Entitic vol] 84.7 fL Normal 80.0-94.0 The [facility] Comment on above: Performed By: #### C BC ####[facility] Fnvpzbjuaw6[address] [place] [address]Dr. Chrissy Frazier MONO # 0.7 103/ul Normal 0.3-0.8 The [facility] Comment on above: Performed By: #### C BC ####[facility] Onyheyobkw3673 [place] [address]Dr. Chrissy Frazier Monocytes/100 WBC (Bld) 4.2 % Normal 1.7-12.0 The [facility] Comment on above: Performed By: #### C BC ####[facility] Fhdujpueka7[address] [place] [address]Dr. Chrissy Frazier NEUT # 12.4 103/ul Critically high 1.4-6.5 The [facility] Comment on above: Performed By: #### C BC ####[facility] Abkfukveld9327 [place] [address]Dr. Chrissy Frazier Neutrophils/100 WBC (Bld) 72.7 % Normal 43.0-75.0 The [facility] Comment on above: Performed By: #### C BC ####[facility] Imjowaaipw2455 [place] [address]Dr. Chrissy Frazier Platelet mean volume (Bld) [Entitic vol] 10.9 fL Normal 9.5-13.5 The [facility] Comment on above: Performed By: #### C BC ####[facility] Onetbulbay7[address] [place], [place] [address]Dr. Chrissy Frazier PLT 386 103/ul Normal 150-450 The [facility] Comment on above: Performed By: #### C BC ####[facility] Ylzbdrtskk1693 [place] [address]Dr. Chrissy Frazier RBC 5.70 106/ul Normal 4.70-6.10 The [facility] Comment on above: Performed By: #### C BC ####[facility] Hmjknxfglq6786 [place] [id number]. Chrissy Frazier WBC 17.0 103/ul Critically high 4.0-11.0 The [facility] Comment on above: Performed By: #### C BC ####[facility] Vljhvuoiip0449 [place] [id number]. Chrissy Frazier Covid-19 PCR (CVDTBH)on 08-21 SARS-CoV-2 (COVID-19) RNA RHIANNON+probe Ql (Unsp spec) Not detected Normal NOT DETECTED The [facility] Comment on above: Result Comment: When diagnostic [...] for this test is supported by the [employer] of [employer] and Human Service's declaration that [...] be used). Performed By: #### C VDTBH ####[facility] Bjtptdmwdx[address] [place] [id number]. Chrissy Frazier LACTATE/LACTIC ACIDon 2021 Lactate [Moles/Vol] 7.1 mmol/L Critically high 0.4-1.9 The [facility] Comment on above: Performed By: #### L ACT ####[facility] Wafqmipluq5[address] [place] [address]Dr. Chrissy Frazier Lactate [Moles/Vol] 8.6 mmol/L Critically high 0.4-1.9 [place] Comment on above: Performed By: #### L ACT ####[facility] Rkzafjhunr1916 [place] [address]Dr. Chrissy Frazier LIPASEon 09-02-2022 Lipase [Catalytic activity/Vol] 60.0 U/L Critically low 73.0-393.0 [place] Comment on above: Performed By: #### A MY, CMP, LIPA ####[facility] Otjkzgcent9048 [place] [address]Dr. Chrissy Frazier POINT OF CARE GLUCOSEon 08-21 Glucose [Mass/Vol] 140 mg/dL Critically high 74-106 [facility] Comment on above: Performed By: #### P OCGLUC ####[facility] Hjrxghobso7[address] [place], [place] [address]Dr. Chrissy Frazier PROF 14(COMP METB)on 022 Albumin [Mass/Vol] 4.3 g/dL Normal 3.4-5.0 [facility] Comment on above: Performed By: #### A MY, CMP, LIPA ####[facility] Smgolqgsrc0503 [place] [address]Dr. Chrissy Frazier Albumin/Globulin [Mass ratio] 1.0 {ratio} Normal [place] Comment on above: Performed By: #### A MY, CMP, LIPA ####[facility] Bcvlicjida0111 [place] [address]Dr. Chrissy Frazier ALP [Catalytic activity/Vol] 82 U/L Normal 46-116 The [facility] Comment on above: Performed By: #### A MY, CMP, LIPA ####[facility] Wyykadsrlw9168 [place] [address]Dr. Chrissy Frazier ALT [Catalytic activity/Vol] 48 U/L Normal 16-63 [place] Comment on above: Performed By: #### A MY, CMP, LIPA ####[facility] Wojowlvleo8548 [place] [address]Dr. Chrissy Frazier Anion gap [Moles/Vol] 25.3 mmol/L Normal [place] Comment on above: Performed By: #### A MY, CMP, LIPA ####[facility] Znkmhkcguz2594 [place] [address]Dr. Chrissy Frazier AST [Catalytic activity/Vol] 33 U/L Normal 15-37 The [facility] Comment on above: Performed By: #### A MY, CMP, LIPA ####[facility] Nwkgoqesvr8421 [place] [address]Dr. Chrissy Frazier Bilirubin [Mass/Vol] 0.7 mg/dL Normal 0.2-1.0 [place] Comment on above: Performed By: #### A MY, CMP, LIPA ####[facility] Qawkreicfb3826 [place] [address]Dr. Chrissy Frazier Calcium [Mass/Vol] 9.5 mg/dL Normal 8.5-10.1 [facility] Comment on above: Performed By: #### A MY, CMP, LIPA ####[facility] Mczbtyncuy55[address] [place], [place] [address]Dr. Chrissy Frazier Chloride [Moles/Vol] 100 mmol/L Normal 98-107 The [facility] Comment on above: Performed By: #### A MY, CMP, LIPA ####[facility] Wxjjjezmpk5712 [place] [address]Dr. Chrissy Frazier CO2 [Moles/Vol] 14.2 mmol/L Critically low 21.0-32.0 The [facility] Comment on above: Performed By: #### A MY, CMP, LIPA ####[facility] Nqdztcydsu7326 [place] [address]Dr. Chrissy Frazier Creatinine [Mass/Vol] 1.70 mg/dL Critically high 0.70-1.30 The [facility] Comment on above: Performed By: #### A MY, CMP, LIPA ####[facility] Aqqwgghsfl4077 [place] [address]Dr. Chrissy Frazier EGFR-AF CROATIAN 57 mL/min/1.73m2 Critically low >=60 The [facility] Comment on above: Performed By: #### A MY, CMP, LIPA ####[facility] Ropzjcrezp3151 [place] [address]Dr. Chrissy Frazier EGFR-NON AF CROATIAN 47 mL/min/1.73m2 Critically low >=60 [place] Comment on above: Performed By: #### A MY, CMP, LIPA ####[facility] Dynyxexuyz1115 [place] [address]Dr. Chrissy Frazier Globulin (S) [Mass/Vol] 4.2 g/dL Normal [place] Comment on above: Performed By: #### A MY, CMP, LIPA ####[facility] Gwfsdemxgy8037 [place] [address]Dr. Chrissy Frazier Glucose [Mass/Vol] 212 mg/dL Critically high 74-106 [facility] Comment on above: Performed By: #### A MY, CMP, LIPA ####[facility] Jlxqjgkzsc[address] [place], [place] [address]Dr. Chrissy Frazier Potassium [Moles/Vol] 3.5 mmol/L Normal 3.5-5.1 [place] Comment on above: Performed By: #### A MY, CMP, LIPA ####[facility] Vexzggrjjp9201[address] [place], [place] [address]Dr. Chrissy Frazier Protein [Mass/Vol] 8.5 g/dL Critically high 6.4-8.2 [facility] Comment on above: Performed By: #### A MY, CMP, LIPA ####[facility] Odasyvqidq0265 [place] [address]Dr. Chrissy Frazier Sodium [Moles/Vol] 136 mmol/L Normal 136-145 [facility] Comment on above: Performed By: #### A MY, CMP, LIPA ####[facility] Imwfucxyzx9568[address] [place], [place] [address]Dr. Chrissy Frazier Urea nitrogen [Mass/Vol] 9.0 mg/dL Normal 7.0-18.0 [place] Comment on above: Performed By: #### A MY, CMP, LIPA ####[facility] Gothajuqrl9247 [place] [address]Dr. Chrissy Frazier Urea nitrogen/Creatinine [Mass ratio] 5.3 mg/mg Normal The [facility] Comment on above: Performed By: #### A MY, CMP, LIPA ####[facility] Qzrmhlpgtm8906 [place] [address]Dr. Chrissy Frazier AMYLASEon 07-07-2022 Amylase [Catalytic activity/Vol] 33 U/L Normal 25-115 The [facility] Comment on above: Performed By: #### C MP, TERRENCE, BNP, LIPA ####[facility] Ilruzohqzn7[address] [place], [place] [address]Dr. Chrissy Frazier BNPon 07-07-2022 Natriuretic peptide B (Bld) [Mass/Vol] 29.0 pg/mL Normal <=450.0 The [facility] Comment on above: Performed By: #### C MP, TERRENCE, BNP, LIPA ####[facility] Luwqfhuprt1327[address] [place], [place] [address]Dr. Chrissy Frazier CBC AUTO DIFFon 07-07-2022 BASO # 0.0 103/ul Normal 0.0-0.1 [place] Comment on above: Performed By: #### C BC ####[facility] Wellllpdye05[address] [place], [place] [address]Dr. Chrissy Frazier Basophils/100 WBC (Bld) 0.4 % Normal 0.2-2.0 The [facility] Comment on above: Performed By: #### C BC ####[facility] Zsllcivkdc2567[address] [place], [place] [address]Dr. Chrissy Frazier EO # 0.3 103/ul Normal 0.0-0.7 The [facility] Comment on above: Performed By: #### C BC ####[facility] Bscmuplerc232[address] [place], [place] [address]Dr. Chrissy Frazier Eosinophils/100 WBC (Bld) 3.0 % Normal 0.9-7.0 The [facility] Comment on above: Performed By: #### C BC ####[facility] Pqcnfgtilt7090[address] [place], [place] [address]Dr. Chrissy Frazier Erythrocyte distribution width (RBC) [Ratio] 14.0 % Normal 11.0-15.0 The [facility] Comment on above: Performed By: #### C BC ####[facility] Rqirypwcyp8222 [place] [address]DrNancy Frazier Hematocrit (Bld) [Volume fraction] 42.8 % Normal 42.0-54.0 [place] Comment on above: Performed By: #### C BC ####[facility] Froarzudkk6115 [place] [address]DrNancy Frazier Hemoglobin (Bld) [Mass/Vol] 14.3 g/dL Normal 14.0-18.0 The [facility] Comment on above: Result Comment: IV F LUIDS RUNNING Performed By: #### C BC ####[facility] Lqzqjbeinp6[address] [place], [place] [address]DrNancy Frazier IG # 0.05 10e3/ul Critically high 0.00-0.03 [facility] Comment on above: Performed By: #### C BC ####[facility] Agbnhpwiyo[address] [place], [place] [address]DrNancy Frazier IG % 0.5 % Normal 0.0-0.5 [place] Comment on above: Performed By: #### C BC ####[facility] Wpkokyrwbn17[address] [place], [place] [address]DrNancy Frazier LYMPH # 2.4 103/ul Normal 1.2-3.8 The [facility] Comment on above: Performed By: #### C BC ####[facility] Tshlrlgbtu[address] [place], [place] [address]DrNancy Frazier Lymphocytes/100 WBC (Bld) 25.5 % Normal 20.5-60.0 The [facility] Comment on above: Performed By: #### C BC ####[facility] Vagnlmyfyg[address] [place], [place] [address]DrNancy Frazier MANUAL DIFF REQ NO Normal [facility] Comment on above: Performed By: #### C BC ####[facility] Repmduvmzy0480 [place] [address]DrNancy Frazier MCH (RBC) [Entitic mass] 28.5 pg Normal 25.9-34.0 The [facility] Comment on above: Performed By: #### C BC ####[facility] Ivtyxukmvb2925 [place] [id number]. Chrissy Freddie MCHC (RBC) [Mass/Vol] 33.4 g/dL Normal 29.9-35.2 The [facility] Comment on above: Performed By: #### C BC ####[facility] Drvsfriekv4758 [place] [id number] Frazier MCV (RBC) [Entitic vol] 85.3 fL Normal 80.0-94.0 [place] Comment on above: Performed By: #### C BC ####[facility] Sgzlhznfjr[address] [place], [place] [address]DrNancy Frazier MONO # 0.7 103/ul Normal 0.3-0.8 The [facility] Comment on above: Performed By: #### C BC ####[facility] Ddbwnybdql72[address] [place], [place] [address]Dr. Chrissy Frazier Monocytes/100 WBC (Bld) 7.8 % Normal 1.7-12.0 The [facility] Comment on above: Performed By: #### C BC ####[facility] Iltnjhtoir[address] [place] [address]Dr. Chrissy Frazier NEUT # 5.8 103/ul Normal 1.4-6.5 The [facility] Comment on above: Performed By: #### C BC ####[facility] Jhewdqrynt[address] [place], [place] [address]Dr. Chrissy Frazier Neutrophils/100 WBC (Bld) 62.8 % Normal 43.0-75.0 The [facility] Comment on above: Performed By: #### C BC ####[facility] Rdkzqoaqzo[address] [place], [place] [address]DrNancy Frazier Platelet mean volume (Bld) [Entitic vol] 10.8 fL Normal 9.5-13.5 The [facility] Comment on above: Performed By: #### C BC ####[facility] Ccuzasffsx7[address] [place], [place] [address]Dr. Chrissy Frazier PLT 310 103/ul Normal 150-450 The [facility] Comment on above: Performed By: #### C BC ####[facility] Wlzebicfeo5223 [place] [id number]. Tishrowan Freddie RBC 5.02 106/ul Normal 4.70-6.10 The [facility] Comment on above: Performed By: #### C BC ####[facility] Srvcrszdfr0619 [place], [place] [address]Og. Tishrowan Freddie WBC 9.3 103/ul Normal 4.0-11.0 The [facility] Comment on above: Performed By: #### C BC ####[facility] Oegxayczrr01[address] [place] [id number]. Chrissy Frazier CULTURE URINEon 07-07-2022 CULTURE URINE Culture Observations: NO GROWTH. Normal The [facility] Comment on above: Performed By: #### U RCX ####[facility] Kfbccxlzrx2654 [place] [id number]. Chrissy Frazier DRUG SCREEN RAPID (URINE)on 07-07-2022 AMP Negative Normal NEGATIVE [place] Comment on above: Performed By: #### D RUGRPD ####[facility] Nhqtaksdov2226 [place] [id number]. Chrissy Frazier BAR Negative Normal NEGATIVE The [facility] Comment on above: Performed By: #### D RUGRPD ####[facility] Fsakzpexzx3269 [place] [id number]. Chrissy Frazier BUP Negative Normal NEGATIVE The [facility] Comment on above: Performed By: #### D RUGRPD ####[facility] Cdgtwanewg7329 [place] [id number]. Chrissy Frazier BZO Positive Abnormal NEGATIVE The [facility] Comment on above: Performed By: #### D RUGRPD ####[facility] Gskbgmdmbh0336 [place] [id number]. Chrissy Frazier LAUREN Negative Normal NEGATIVE The [facility] Comment on above: Performed By: #### D RUGRPD ####[facility] Zwqdhxfzhc4250 [place] [id number]. Chrissy Frazier CUT-OFFS SEE BELOW Normal The [facility] Comment on above: Result Comment: AMP (Amphetamine): 500ng/mL, BAR (Barbituates): 200 ng/mL, BZO (Benzodiazepines): 150 ng/mL, BUP (Buprenorphine): 10 ng/mL, LAUREN (Cocaine): 150 ng/mL, mAMP (Methamphetamine): 500 ng/mL, MTD (Methadone): 200 ng/mL, OPI (Opiates): 100 ng/mL, OXY (Oxycodone): 100 ng/mL, PCP (Phencyclidine): 25 ng/mL, PPX (Propoxyphene): 300 ng/mL, THC (Cannabinoids): 50 ng/mL, TCA (Trycyclic Antidepressants): 300 ng/mL Performed By: #### D RUGRPD ####[facility] Rsuhidsfwa0025[address] [place], [place] [address]Dr. Chrissy Frazier DRUG CUT HEADER DRUG CLASS TEST SYSTEM CUT-OFF CONCENTRATIONS ARE FOLLOWS: Normal [place] Comment on above: Performed By: #### D RUGRPD ####[facility] Jduocfypxh6[address] [place], [place] [address]Dr. Chrissy Frazier mAMP Negative Normal NEGATIVE [place] Comment on above: Performed By: #### D RUGRPD ####[facility] Hamvdsivlt1426[address] [place], [place] [address]Dr. Chrissy Frazier MTD Negative Normal NEGATIVE The [facility] Comment on above: Performed By: #### D RUGRPD ####[facility] Nurcyfnxxo58[address] [place], [place] [address]Dr. Chrissy Frazier OPI Negative Normal NEGATIVE [place] Comment on above: Performed By: #### D RUGRPD ####[facility] Bmletgusdi[address] [place], [place] [address]Dr. Chrissy Frazier OXY Negative Normal NEGATIVE The [facility] Comment on above: Performed By: #### D RUGRPD ####[facility] Kffqlzmwuo436[address] [place], [place] [address]Dr. Chrissy Frazier PCP Negative Normal NEGATIVE [place] Comment on above: Performed By: #### D RUGRPD ####[facility] Gnyoxcsleb0250[address] [place], [place] [address]Dr. Chrissy Frazier PPX Negative Normal NEGATIVE [place] Comment on above: Performed By: #### D RUGRPD ####[facility] Pkuzywqntt3403 [place] [address]Dr. Chrissy Frazier TCA Positive Abnormal NEGATIVE The [facility] Comment on above: Performed By: #### D RUGRPD ####[facility] Tceckhblav2576 [place] [address]Dr. Chrissy Frazier THC Positive Abnormal NEGATIVE The [facility] Comment on above: Performed By: #### D RUGRPD ####[facility] Ayygsxwtrv2335 [place] [address]Dr. Chrissy Frazier LIPASEon 07-07-2022 Lipase [Catalytic activity/Vol] 118.0 U/L Normal 73.0-393.0 [place] Comment on above: Performed By: #### L IPA ####[facility] Cfnpmwnlff417[address] [place], [place] [address]Dr. Chrissy Frazier Lipase [Catalytic activity/Vol] 114.0 U/L Normal 73.0-393.0 [place] Comment on above: Performed By: #### C MP, TERRENCE, BNP, LIPA ####[facility] Hktezanjco0198 [place] [address]Dr. Chrissy Frazier PROF 14(COMP METB)on 022 Albumin [Mass/Vol] 3.4 g/dL Normal 3.4-5.0 [facility] Comment on above: Performed By: #### C MP, TERRENCE, BNP, LIPA ####[facility] Mviwlvybbf9259 [place] [address]Dr. Chrissy Frazier Albumin/Globulin [Mass ratio] 1.1 {ratio} Normal [place] Comment on above: Performed By: #### C MP, TERRENCE, BNP, LIPA ####[facility] Imcugahauv9496 [place] [address]Dr. Chrissy Frazier ALP [Catalytic activity/Vol] 68 U/L Normal 46-116 The [facility] Comment on above: Performed By: #### C MP, TERRENCE, BNP, LIPA ####[facility] Ujslbzsgfe2287 [place] [address]Dr. Chrissy Frazier ALT [Catalytic activity/Vol] 93 U/L Critically high 16-63 [place] Comment on above: Performed By: #### C MP, TERRENCE, BNP, LIPA ####[facility] Rlxkuygbqk4586 [place] [address]Dr. Chrissy Frazier Anion gap [Moles/Vol] 14.4 mmol/L Normal [place] Comment on above: Performed By: #### C MP, TERRENCE, BNP, LIPA ####[facility] Pcbffjakrw9984[address] [place], [place] [address]Dr. Chrissy Frazier AST [Catalytic activity/Vol] 33 U/L Normal 15-37 The [facility] Comment on above: Performed By: #### C MP, TERRENCE, BNP, LIPA ####[facility] Vlfltmsoec993[address] [place], [place] [address]Dr. Chrissy Frazier Bilirubin [Mass/Vol] 0.9 mg/dL Normal 0.2-1.0 [place] Comment on above: Performed By: #### C MP, TERRENCE, BNP, LIPA ####[facility] Yqzsshrsei3[address] [place], [place] [address]Dr. Chrissy Frazier Calcium [Mass/Vol] 8.2 mg/dL Critically low 8.5-10.1 Th e [facility] Comment on above: Performed By: #### C MP, TERRENCE, BNP, LIPA ####[facility] Oxodeuqkfh1557[address] [place], [place] [address]Dr. Chrissy Frazier Chloride [Moles/Vol] 103 mmol/L Normal 98-107 The [facility] Comment on above: Performed By: #### C MP, TERRENCE, BNP, LIPA ####[facility] Dabgubvndj0450[address] [place], [place] [address]Dr. Chrissy Frazier CO2 [Moles/Vol] 22.9 mmol/L Normal 21.0-32.0 The [facility] Comment on above: Performed By: #### C MP, TERRENCE, BNP, LIPA ####[facility] Nqtsjlocdf9[address] [place], [place] [address]Dr. Chrissy Frazier Creatinine [Mass/Vol] 1.07 mg/dL Normal 0.70-1.30 The [facility] Comment on above: Performed By: #### C MP, TERRENCE, BNP, LIPA ####[facility] Mmaobvugac3294 [place] [address]Dr. Chrissy Frazier EGFR-AF CROATIAN >60 Normal >=60 The [facility] Comment on above: Performed By: #### C MP, TERRENCE, BNP, LIPA ####[facility] Gysqhcymie58[address] [place] [address]Dr. Chrissy Frazier EGFR-NON AF CROATIAN >60 Normal >=60 The [facility] Comment on above: Performed By: #### C MP, TERRENCE, BNP, LIPA ####[facility] Dscmbmasip2215 [place] [address]Dr. Chrissy Frazier Globulin (S) [Mass/Vol] 3.2 g/dL Normal The [facility] Comment on above: Performed By: #### C MP, TERRENCE, BNP, LIPA ####[facility] Erlxnmlaae0615 [place] [address]Dr. Chrissy Frazier Glucose [Mass/Vol] 96 mg/dL Normal 74-106 The [facility] Comment on above: Performed By: #### C MP, TERRENCE, BNP, LIPA ####[facility] Nrkblwnruu1030 [place] [address]Dr. Chrissy Frazier Potassium [Moles/Vol] 3.3 mmol/L Critically low 3.5-5.1 The [facility] Comment on above: Performed By: #### C MP, TERRENCE, BNP, LIPA ####[facility] Ixawlzpvkb8107 [place] [address]Dr. Chrissy Frazier Protein [Mass/Vol] 6.6 g/dL Normal 6.4-8.2 The [facility] Comment on above: Performed By: #### C MP, TERRENCE, BNP, LIPA ####[facility] Mqstscqtab7666 [place] [address]Dr. Chrissy Frazier Sodium [Moles/Vol] 137 mmol/L Normal 136-145 The [facility] Comment on above: Performed By: #### C MP, TERRENCE, BNP, LIPA ####[facility] Yqrqpddumm6213 [place] [address]Dr. Chrissy Frazier Urea nitrogen [Mass/Vol] 13.0 mg/dL Normal 7.0-18.0 [place] Comment on above: Performed By: #### C MP, TERRENCE, BNP, LIPA ####[facility] Vpootarfjl642[address] [place], [place] [address]Dr. Chrissy Frazier Urea nitrogen/Creatinine [Mass ratio] 12.1 mg/mg Normal [place] Comment on above: Performed By: #### C MP, TERRENCE, BNP, LIPA ####[facility] Kbiljjdixv2547[address] [place], [place] [address]Dr. Chrissy Frazier UA RANDOM W/MICROSCOPICon BACTERIA TRACE Abnormal NONE SEEN [place] Comment on above: Performed By: #### U AMIC ####[facility] Nibcgnnbdb2709[address] [place], [place] [address]Dr. Chrissy Frazier Bilirubin Ql (U) Negative Normal NEGATIVE The [facility] Comment on above: Performed By: #### U AMIC ####[facility] Heycuyftqu7498[address] [place], [place] [address]Dr. Chrissy Frazier CAST NONE SEEN Normal NONE SEEN [place] Comment on above: Performed By: #### U AMIC ####[facility] Blspyvlmlo7[address] [place], [place] [address]Dr. Chrissy Frazier Clarity (U) CLEAR Normal CLEAR The [facility] Comment on above: Performed By: #### U AMIC ####[facility] Ncrzyghkin999[address] [place], [place] [address]Dr. Chrissy Frazier Color (U) YELLOW Normal YELLOW The [facility] Comment on above: Performed By: #### U AMIC ####[facility] Uitumzplef2285[address] [place], [place] [address]Dr. Chrissy Frazier Crystals LM Nom (Urine sed) SEEN Abnormal NONE SEEN [place] Comment on above: Performed By: #### U AMIC ####[facility] Frcfooogiy[address] [place], [place] [address]Dr. Chrissy Frazier Epithelial cells LM Ql (Urine sed) RARE Normal NONE SEEN /RARE The [facility] Comment on above: Performed By: #### U AMIC ####[facility] Yxosjnhczq2635 [place] [address]Dr. Tishrowan Freddie Glucose Ql (U) Negative Normal NEGATIVE The [facility] Comment on above: Performed By: #### U AMIC ####[facility] Yzxgnuiowe1169 [place] [address]Dr. Chrissy Frazier Hemoglobin Ql (U) Negative Normal NEGATIVE The [facility] Comment on above: Performed By: #### U AMIC ####[facility] Geltwvvdoy0516 [place] [address]Dr. Chrissy Frazier Ketones Ql (U) 15 mg/dl Abnormal NEGATIVE The [facility] Comment on above: Performed By: #### U AMIC ####[facility] Qfkmxfosvm2220[address] [place], [place] [address]Dr. Chrissy Frazier LEUKOCYTES Negative Normal NEGATIVE The [facility] Comment on above: Performed By: #### U AMIC ####[facility] Jdqgmllmwq6022[address] [place], [place] [address]Dr. Chrissy Freddie MUCOUS NONE SEEN Normal NONE SEEN The [facility] Comment on above: Performed By: #### U AMIC ####[facility] Hnmkenufmu3848 [place] [address]Dr. Chrissy Frazier Nitrite Ql (U) Negative Normal NEGATIVE The [facility] Comment on above: Performed By: #### U AMIC ####[facility] Sexkhbbaiy7171 [place] [address]Dr. Chrissy Frazier pH (U) 6.0 [pH] Normal 5-9 The [facility] Comment on above: Performed By: #### U AMIC ####[facility] Lmjxjfaddi9227[address] [place], [place] [address]Dr. Chrissy Frazier RBC 0-2 Normal 0-2 The [facility] Comment on above: Performed By: #### U AMIC ####[facility] Jfrllgjcts8[address] [place], [place] [address]Dr. Crhissy Frazier SPEC GRAVITY 1.015 Normal 1.005-<=1.025 The [facility] Comment on above: Performed By: #### U AMIC ####[facility] Bdvmmckijf0724 [place] [address]Dr. Chrissy Frazier UA PROTEIN Negative Normal NEGATIVE/ TRACE The [facility] Comment on above: Performed By: #### U AMIC ####[facility] Qfoyclqkrn7633 [place] [address]Dr. Chrissy Frazier URIC ACID CRYSTALS RARE Normal [facility] Comment on above: Performed By: #### U AMIC ####[facility] Dojvsoqdgl9411 [place] [address]Dr. Chrissy Frazier Urobilinogen Qn (U) 0.2 {Estrellita'U}/dL Normal 0.2 - 1. 0 [place] Comment on above: Performed By: #### U AMIC ####[facility] Lshcgmrcxp8850[address] [place], [place] [address]Dr. Chrissy Frazier WBC 0-2 Abnormal NONE SEEN The [facility] Comment on above: Performed By: #### U AMIC ####[facility] Rdzqijpkkq7252 [place] [address]Dr. Tishrowan Frazier AMYLASEon 07-06-2022 Amylase [Catalytic activity/Vol] 37 U/L Normal 25-115 The [facility] Comment on above: Performed By: #### C MP, LIPA, TERRENCE ####[facility] Avkhiiulhg2868[address] [place], [place] [address]Dr. Chrissy Frazier CBC AUTO DIFFon 07-06-2022 BASO # 0.1 103/ul Normal 0.0-0.1 [place] Comment on above: Performed By: #### C BC ####[facility] Fpqrbnuizu1296[address] [place], [place] [address]Dr. Chrissy Frazier Basophils/100 WBC (Bld) 0.4 % Normal 0.2-2.0 [place] Comment on above: Performed By: #### C BC ####[facility] Rvdfzqeptq3674[address] [place], [place] [address]Dr. Chrissy Frazier EO # 0.1 103/ul Normal 0.0-0.7 The [facility] Comment on above: Performed By: #### C BC ####[facility] Dytxichvlq8064 [place] [address]Dr. Chrissy Frazier Eosinophils/100 WBC (Bld) 0.5 % Critically low 0.9-7.0 [place] Comment on above: Performed By: #### C BC ####[facility] Vetcgiezdn2471 [place] [address]Dr. Chrissy Freddie Erythrocyte distribution width (RBC) [Ratio] 13.6 % Normal 11.0-15.0 [place] Comment on above: Performed By: #### C BC ####[facility] Myafzubimu6760[address] [place], [place] [address]Dr. Chrissy Frazier Hematocrit (Bld) [Volume fraction] 47.9 % Normal 42.0-54.0 [place] Comment on above: Performed By: #### C BC ####[facility] Qmtfeshjll0486[address] [place], [place] [address]Dr. Chrissy Freddie Hemoglobin (Bld) [Mass/Vol] 16.4 g/dL Normal 14.0-18.0 [place] Comment on above: Performed By: #### C BC ####[facility] Ikbbzjrsor375[address] [place], [place] [address]Dr. Chrissy Frazier IG # 0.09 10e3/ul Critically high 0.00-0.03 [facility] Comment on above: Performed By: #### C BC ####[facility] Yibgywbegr4489[address] [place], [place] [address]Dr. Chrissy Freddie IG % 0.6 % Critically high 0.0-0.5 The [facility] Comment on above: Performed By: #### C BC ####[facility] Pgxbbpgeqh1465[address] [place], [place] [address]DrNancy Frazier LYMPH # 2.5 103/ul Normal 1.2-3.8 The [facility] Comment on above: Performed By: #### C BC ####[facility] Bnuevxbqnd1120[address] [place], [place] [address]Dr. Chrissy Frazier Lymphocytes/100 WBC (Bld) 16.7 % Critically low 20.5-60.0 [place] Comment on above: Performed By: #### C BC ####[facility] Gmztreonne0913 [place] [address]DrNancy Frazier MANUAL DIFF REQ NO Normal The [facility] Comment on above: Performed By: #### C BC ####[facility] Mxpmjuymxm9352 [place] [address]DrNancy Frazier MCH (RBC) [Entitic mass] 28.1 pg Normal 25.9-34.0 [place] Comment on above: Performed By: #### C BC ####[facility] Uxlhzvzbxa8750[address] [place], [place] [address]DrNancy Frazier MCHC (RBC) [Mass/Vol] 34.2 g/dL Normal 29.9-35.2 The [facility] Comment on above: Performed By: #### C BC ####[facility] Nuvqvcciot[address] [place], [place] [address]DrNancy Frazier MCV (RBC) [Entitic vol] 82.2 fL Normal 80.0-94.0 The [facility] Comment on above: Performed By: #### C BC ####[facility] Qvbvruokqz5732[address] [place], [place] [address]DrNancy Frazier MONO # 1.0 103/ul Critically high 0.3-0.8 The [facility] Comment on above: Performed By: #### C BC ####[facility] Ekpbsyyzhl1848[address] [place], [place] [address]DrNancy Frazier Monocytes/100 WBC (Bld) 6.7 % Normal 1.7-12.0 The [facility] Comment on above: Performed By: #### C BC ####[facility] Skhmxqzfxs725[address] [place], [place] [address]DrNancy Frazier NEUT # 11.3 103/ul Critically high 1.4-6.5 The [facility] Comment on above: Performed By: #### C BC ####[facility] Erpzzxczpt5638[address] [place], [place] [address]DrNancy Frazier Neutrophils/100 WBC (Bld) 75.1 % Critically high 43.0-75.0 The [facility] Comment on above: Performed By: #### C BC ####[facility] Arlfpjksfl8212 [place] [address]Dr. Chrissy Frazier Platelet mean volume (Bld) [Entitic vol] 10.6 fL Normal 9.5-13.5 [place] Comment on above: Performed By: #### C BC ####[facility] Zurjwihqhw1637 [place] [address]Dr. Chrissy Frazier PLT 416 103/ul Normal 150-450 The [facility] Comment on above: Performed By: #### C BC ####[facility] Mbrhaadabf5494 [place] [address]Dr. Chrissy Frazier RBC 5.83 106/ul Normal 4.70-6.10 The [facility] Comment on above: Performed By: #### C BC ####[facility] Qepbbbrrze8659 [place] [address]Dr. Chrissy Frazier WBC 15.0 103/ul Critically high 4.0-11.0 The [facility] Comment on above: Performed By: #### C BC ####[facility] Fmuzqulguj7818 [place] [address]Dr. Chrissy Frazier [facility]on [facility]21 SARS-CoV-2 (COVID-19) RNA RHIANNON+probe Ql (Unsp spec) Not detected Normal NOT DETECTED The [facility] Comment on above: Result Comment: When diagnostic [...] for this test is supported by the [place] of [employer] and Human Service's declaration that [...] be used). Performed By: #### C VDTBH ####[facility] Agatgmjgno1624 [place] [address]Dr. Chrissy Frazier LIPASEon 07-06-2022 Lipase [Catalytic activity/Vol] 130.0 U/L Normal 73.0-393.0 [place] Comment on above: Performed By: #### C MP LIPA, TERRENCE ####[facility] Ncbcboftah3074 [place] [address]Dr. Chrissy Frazier PROF 14(COMP METB)on 022 Albumin [Mass/Vol] 4.4 g/dL Normal 3.4-5.0 [facility] Comment on above: Performed By: #### C MP LIPA, TERRENCE ####[facility] Gwpkwbauea2396 [place] [address]Dr. Chrissy Frazier Albumin/Globulin [Mass ratio] 1.1 {ratio} Normal [place] Comment on above: Performed By: #### C MP LIPA, TERRENCE ####[facility] Tovumhjqbf[address] [place], [place] [address]Dr. Chrissy Frazier ALP [Catalytic activity/Vol] 83 U/L Normal 46-116 The [facility] Comment on above: Performed By: #### C MP, LIPA, TERRENCE ####[facility] Kpkmoixpvt2703 [place] [address]Dr. Chrissy Frazier ALT [Catalytic activity/Vol] 107 U/L Critically high 16-63 The [facility] Comment on above: Performed By: #### C MP, LIPA, TERRENCE ####[facility] Qsixvmaftm6627 [place] [address]DrNancy Frazier Anion gap [Moles/Vol] 20.5 mmol/L Normal [place] Comment on above: Performed By: #### C MP, LIPA, TERRENCE ####[facility] Uiihxqaxpn4904 [place] [address]Dr. Chrissy Frazier AST [Catalytic activity/Vol] 46 U/L Critically high 15-37 The [facility] Comment on above: Performed By: #### C OSWALD ADAIR, TERRENCE ####[facility] Uhwqwqgtut7880 [place] [address]Dr. Chrissy Frazier Bilirubin [Mass/Vol] 1.2 mg/dL Critically high 0.2-1.0 [place] Comment on above: Performed By: #### C OSWALD ADAIR, TERRENCE ####[facility] Wbwxogqxwn7927[address] [place], [place] [address]Dr. Chrissy Frazier Calcium [Mass/Vol] 9.1 mg/dL Normal 8.5-10.1 [facility] Comment on above: Performed By: #### C OSWALD ADAIR, TERRENCE ####[facility] Xukydjcavo97[address] [place], [place] [address]Dr. Chrissy Frazier Chloride [Moles/Vol] 100 mmol/L Normal 98-107 The [facility] Comment on above: Performed By: #### C OSWALD ADAIR, TERRENCE ####[facility] Azmnhaxpfy85[address] [place], [place] [address]Dr. Chrissy Frazier CO2 [Moles/Vol] 18.6 mmol/L Critically low 21.0-32.0 The [facility] Comment on above: Performed By: #### C OSWALD ADAIR, TERRENCE ####[facility] Bxnwmilbzt2616[address] [place], [place] [address]Dr. Chrissy Frazier Creatinine [Mass/Vol] 1.44 mg/dL Critically high 0.70-1.30 The [facility] Comment on above: Performed By: #### C OSWALD ADAIR, TERRENCE ####[facility] Incpqetpsh[address] [place], [place] [address]Dr. Chrissy Frazier EGFR-AF CROATIAN >60 Normal >=60 The [facility] Comment on above: Performed By: #### C TESSA ADAIRA, TERRENCE ####[facility] Wudfxgehqy[address] [place], [place] [address]Dr. Chrissy Frazier EGFR-NON AF CROATIAN 57 mL/min/1.73m2 Critically low >=60 The [facility] Comment on above: Performed By: #### C TESSA ADAIRA, TERRENCE ####[facility] Vrczxnbogr9161 [place] [address]Dr. Chrissy Frazier Globulin (S) [Mass/Vol] 4.0 g/dL Normal [place] Comment on above: Performed By: #### C MANA LIPA, TERRENCE ####[facility] Nzefnbbgdq6848 [place] [address]Dr. Chrissy Frazier Glucose [Mass/Vol] 117 mg/dL Critically high 74-106 [facility] Comment on above: Performed By: #### C MANA LIPA, TERRENCE ####[facility] Vmpblacyqq36[address] [place], [place] [address]Dr. Chrissy Frazier Potassium [Moles/Vol] 3.1 mmol/L Critically low 3.5-5.1 [place] Comment on above: Performed By: #### C MANA LIPA, TERRENCE ####[facility] Dwggrrlxkv32[address] [place], [place] [address]Dr. Chrissy Frazier Protein [Mass/Vol] 8.4 g/dL Critically high 6.4-8.2 [facility] Comment on above: Performed By: #### C MANA LIPA, TERRENCE ####[facility] Osyikckwbg8[address] [place], [place] [address]Dr. Chrissy Frazier Sodium [Moles/Vol] 136 mmol/L Normal 136-145 [facility] Comment on above: Performed By: #### C MANA LIPA, TERRENCE ####[facility] Jpujbwcsuy75[address] [place], [place] [address]Dr. Chrissy Frazier Urea nitrogen [Mass/Vol] 15.0 mg/dL Normal 7.0-18.0 [place] Comment on above: Performed By: #### C MANA LIPA, TERRENCE ####[facility] Yfeumlwlzo9[address] [place], [place] [address]Dr. Chirssy Frazier Urea nitrogen/Creatinine [Mass ratio] 10.4 mg/mg Normal [place] Comment on above: Performed By: #### C MANA LIPA, TERRENCE ####[facility] Bfaqbnnkws4[address] [place], [place] [address]Dr. Chrissy Frazier CBC AUTO DIFFon 07-05-2022 BASO # 0.0 103/ul Normal 0.0-0.1 [place] Comment on above: Performed By: #### C BC ####[facility] Tjxdcdnmox57[address] [place] [id number]. Chrissy Frazier Basophils/100 WBC (Bld) 0.3 % Normal 0.2-2.0 The [facility] Comment on above: Performed By: #### C BC ####[facility] Fkucdlxcrd6403 [place] [id number]. Chrissy Freddie EO # 0.2 103/ul Normal 0.0-0.7 The [facility] Comment on above: Performed By: #### C BC ####[facility] Kpsdbkpfbc60[address] [place] [address]Dr. Chrissy Freddie Eosinophils/100 WBC (Bld) 1.5 % Normal 0.9-7.0 The [facility] Comment on above: Performed By: #### C BC ####[facility] Qjlayrtvgb4025 [place] [address]Dr. Chrissy Frazier Erythrocyte distribution width (RBC) [Ratio] 13.9 % Normal 11.0-15.0 [place] Comment on above: Performed By: #### C BC ####[facility] Fjoiedhltp3743 [place] [id number]. Chrissy Frazier Hematocrit (Bld) [Volume fraction] 44.5 % Normal 42.0-54.0 The [facility] Comment on above: Performed By: #### C BC ####[facility] Fgirbjccga7965 [place] [id number]. Chrissy Frazier Hemoglobin (Bld) [Mass/Vol] 14.8 g/dL Normal 14.0-18.0 The [facility] Comment on above: Performed By: #### C BC ####[facility] Mzswjagbbj1224 [place] [id number]. Tishrowan Freddie IG # 0.05 10e3/ul Critically high 0.00-0.03 [facility] Comment on above: Performed By: #### C BC ####[facility] Kcvlogbylr1667 [place], [place] [address]Tw. Chrissy Frazier IG % 0.4 % Normal 0.0-0.5 The [facility] Comment on above: Performed By: #### C BC ####[facility] Kyripriczq0752 [place], [place] [address]Iq. Chrissy Frazier LYMPH # 3.3 103/ul Normal 1.2-3.8 The [facility] Comment on above: Performed By: #### C BC ####[facility] Lljaaufeul6287 [place] [id number]. Chrissy Frazier Lymphocytes/100 WBC (Bld) 29.1 % Normal 20.5-60.0 The [facility] Comment on above: Performed By: #### C BC ####[facility] Fukgjtvuow4764 [place] [id number]. Chrissy Frazier MANUAL DIFF REQ NO Normal [facility] Comment on above: Performed By: #### C BC ####[facility] Ecmflpoakw5382 [place] [id number]. Chrissy Frazier MCH (RBC) [Entitic mass] 28.2 pg Normal 25.9-34.0 The [facility] Comment on above: Performed By: #### C BC ####[facility] Jtslxkbkef1248 [place] [address]Dr. Chrissy Frazier MCHC (RBC) [Mass/Vol] 33.3 g/dL Normal 29.9-35.2 The [facility] Comment on above: Performed By: #### C BC ####[facility] Jruhqksuzu4912 [place] [id number]. Chrissy Frazier MCV (RBC) [Entitic vol] 84.9 fL Normal 80.0-94.0 The [facility] Comment on above: Performed By: #### C BC ####[facility] Givfxzofsk7335 [place] [address]Dr. Chrissy Frazier MONO # 0.6 103/ul Normal 0.3-0.8 The [facility] Comment on above: Performed By: #### C BC ####[facility] Rfsahkxsst5479 [place] [id number]. Chrissy Frazier Monocytes/100 WBC (Bld) 5.4 % Normal 1.7-12.0 The [facility] Comment on above: Performed By: #### C BC ####[facility] Wrgiqipmnf1065 [place] [id number]. Chrissy Frazier NEUT # 7.1 103/ul Critically high 1.4-6.5 [facility] Comment on above: Performed By: #### C BC ####[facility] Fgokbwqzlo1005 [place] [id number]. Chrissy Frazier Neutrophils/100 WBC (Bld) 63.3 % Normal 43.0-75.0 The [facility] Comment on above: Performed By: #### C BC ####[facility] Kcxstzqmsh6598 [place] [address]Dr. Chrissy Frazier Platelet mean volume (Bld) [Entitic vol] 9.9 fL Normal 9.5-13.5 The [facility] Comment on above: Performed By: #### C BC ####[facility] Aailzygaqm7198 [place] [id number]. Chrissy Frazier PLT 339 103/ul Normal 150-450 The [facility] Comment on above: Performed By: #### C BC ####[facility] Ivbkmcalcx0718 [place] [id number]. Chrissy Frazier RBC 5.24 106/ul Normal 4.70-6.10 The [facility] Comment on above: Performed By: #### C BC ####[facility] Qdirbivtov6054 [place] [id number]. Chrissy Frazier WBC 11.2 103/ul Critically high 4.0-11.0 The [facility] Comment on above: Performed By: #### C BC ####[facility] Cxxlnvfmid0839 [place] [address]Dr. Chrissy Frazier PROF 14(COMP METB)on 022 Albumin [Mass/Vol] 3.8 g/dL Normal 3.4-5.0 [facility] Comment on above: Performed By: #### C MP ####[facility] Zmlsgsuqre5011 [place] [id number]. Chrissy Frazier Albumin/Globulin [Mass ratio] 1.1 {ratio} Normal [place] Comment on above: Performed By: #### C MP ####[facility] Dbmlnamybb8796 [place] [id number]. Chrissy Frazier ALP [Catalytic activity/Vol] 67 U/L Normal 46-116 [place] Comment on above: Performed By: #### C MP ####[facility] Fpcytamuou2456 [place] [address]Dr. Chrissy Freddie ALT [Catalytic activity/Vol] 75 U/L Critically high 16-63 [place] Comment on above: Performed By: #### C MP ####[facility] Vhmpfnpwif2664[address] [place], [place] [address]Dr. Chrissy Freddie Anion gap [Moles/Vol] 14.3 mmol/L Normal [place] Comment on above: Performed By: #### C MP ####[facility] Sfvjhuorgd847[address] [place], [place] [address]Dr. Chrissy Freddie AST [Catalytic activity/Vol] 40 U/L Critically high 15-37 [place] Comment on above: Performed By: #### C MP ####[facility] Aheqlmavmd760[address] [place], [place] [address]Dr. Chrissy Freddie Bilirubin [Mass/Vol] 0.9 mg/dL Normal 0.2-1.0 [place] Comment on above: Performed By: #### C MP ####[facility] Cmooeildgq9210 [place] [address]Dr. Chrissy Freddie Calcium [Mass/Vol] 8.4 mg/dL Critically low 8.5-10.1 [facility] Comment on above: Performed By: #### C MP ####[facility] Wrawodgivl1339[address] [place], [place] [address]Dr. Chrissy Frazier Chloride [Moles/Vol] 104 mmol/L Normal 98-107 The [facility] Comment on above: Performed By: #### C MP ####[facility] Vwuembjfxz0809 [place] [address]Dr. Chrissy Frazier CO2 [Moles/Vol] 24.1 mmol/L Normal 21.0-32.0 The [facility] Comment on above: Performed By: #### C MP ####[facility] Fcfplbmwow2500 [place] [address]Dr. Chrissy Frazier Creatinine [Mass/Vol] 1.11 mg/dL Normal 0.70-1.30 The [facility] Comment on above: Performed By: #### C MP ####[facility] Mvxpqmnfmh9377[address] [place], [place] [address]Dr. Chrissy Fredide EGFR-AF CROATIAN >60 Normal >=60 The [facility] Comment on above: Performed By: #### C MP ####[facility] Clqvoohevs0030[address] [place], [place] [address]Dr. Chrissy Frazier EGFR-NON AF CROATIAN >60 Normal >=60 The [facility] Comment on above: Performed By: #### C MP ####[facility] Cvmoahtgbq6780[address] [place], [place] [address]Dr. Chrissy Frazier Globulin (S) [Mass/Vol] 3.6 g/dL Normal The [facility] Comment on above: Performed By: #### C MP ####[facility] Vmbsraauoi0079[address] [place], [place] [address]Dr. Chrissy Frazier Glucose [Mass/Vol] 89 mg/dL Normal 74-106 The [facility] Comment on above: Performed By: #### C MP ####[facility] Hlnigfwyiq348[address] [place], [place] [address]Dr. Chrissy Frazier Potassium [Moles/Vol] 3.4 mmol/L Critically low 3.5-5.1 The [facility] Comment on above: Performed By: #### C MP ####[facility] Jsyogngnuq9418[address] [place], [place] [address]Dr. Chrissy Frazier Protein [Mass/Vol] 7.4 g/dL Normal 6.4-8.2 The [facility] Comment on above: Performed By: #### C MP ####[facility] Nkpwpupufq3236[address] [place], [place] [address]Dr. Chrissy Frazier Sodium [Moles/Vol] 139 mmol/L Normal 136-145 [facility] Comment on above: Performed By: #### C MP ####[facility] Xslhhmanvk7000[address] [place], [place] [address]Dr. Chrissy Frazier Urea nitrogen [Mass/Vol] 10.0 mg/dL Normal 7.0-18.0 [place] Comment on above: Performed By: #### C MP ####[facility] Hvymmreint[address] [place], [place] [address]Dr. Chrissy Freddie Urea nitrogen/Creatinine [Mass ratio] 9.0 mg/mg Normal [place] Comment on above: Performed By: #### C MP ####[facility] Srfdvbufcs2139[address] [place], [place] [address]Dr. Chrissy Frazier CBC AUTO DIFFon 07-04-2022 BASO # 0.0 103/ul Normal 0.0-0.1 [place] Comment on above: Performed By: #### C BC ####[facility] Jszkxfdlhl7037[address] [place], [place] [address]Dr. Chrissy Freddie Basophils/100 WBC (Bld) 0.2 % Normal 0.2-2.0 [place] Comment on above: Performed By: #### C BC ####[facility] Ksxvxcakzh214[address] [place], [place] [address]Dr. Chrissy Frazier EO # 0.0 103/ul Normal 0.0-0.7 [place] Comment on above: Performed By: #### C BC ####[facility] Eqzctvdsrd907[address] [place], [place] [address]Dr. Chrissy Freddie Eosinophils/100 WBC (Bld) 0.3 % Critically low 0.9-7.0 The [facility] Comment on above: Performed By: #### C BC ####[facility] Sytpeclltu8115[address] [place], [place] [address]Dr. Chrissy Frazier Erythrocyte distribution width (RBC) [Ratio] 14.0 % Normal 11.0-15.0 [place] Comment on above: Performed By: #### C BC ####[facility] Fearrpbhjc[address] [place], [place] [address]Dr. Chrissy Frazier Hematocrit (Bld) [Volume fraction] 43.2 % Normal 42.0-54.0 The [facility] Comment on above: Performed By: #### C BC ####[facility] Fqhvhusjng2030 [place] [address]Dr. Chrissy Frazier Hemoglobin (Bld) [Mass/Vol] 14.6 g/dL Normal 14.0-18.0 The [facility] Comment on above: Performed By: #### C BC ####[facility] Lrereqmhak3590 [place] [address]Dr. Chrissy Freddie IG # 0.11 10e3/ul Critically high 0.00-0.03 [facility] Comment on above: Performed By: #### C BC ####[facility] Ugqkokxgkl9314 [place] [address]Dr. Tishrowan Frazier IG % 0.8 % Critically high 0.0-0.5 [facility] Comment on above: Performed By: #### C BC ####[facility] Fifdctubjk0083 [place] [address]Dr. Chrissy Freddie LYMPH # 2.6 103/ul Normal 1.2-3.8 The [facility] Comment on above: Performed By: #### C BC ####[facility] Mzxkbfvnct3197 [place] [address]Dr. Chrissy Freddie Lymphocytes/100 WBC (Bld) 18.3 % Critically low 20.5-60.0 The [facility] Comment on above: Performed By: #### C BC ####[facility] Rstrkxljsc2129 [place] [address]DrNancy Tishrowan Frazier MANUAL DIFF REQ NO Normal [facility] Comment on above: Performed By: #### C BC ####[facility] Qcwsctqvva6086 [place] [address]DrNancy Chrissy Freddie MCH (RBC) [Entitic mass] 28.1 pg Normal 25.9-34.0 The [facility] Comment on above: Performed By: #### C BC ####[facility] Xjzxbxsaxl8[address] [place], [place] [address]Dr. Chrissy Frazier MCHC (RBC) [Mass/Vol] 33.8 g/dL Normal 29.9-35.2 The [facility] Comment on above: Performed By: #### C BC ####[facility] Xzcjjzzwyt4478 [place] [address]Dr. Chrissy Frazier MCV (RBC) [Entitic vol] 83.2 fL Normal 80.0-94.0 The [facility] Comment on above: Performed By: #### C BC ####[facility] Aeiwqzjjzg8494 [place] [id number]. Chrissy Freddie MONO # 0.7 103/ul Normal 0.3-0.8 The [facility] Comment on above: Performed By: #### C BC ####[facility] Bscvnahkcg8305 [place] [address]Dr. Chrissy Frazier Monocytes/100 WBC (Bld) 5.3 % Normal 1.7-12.0 The [facility] Comment on above: Performed By: #### C BC ####[facility] Rlsixypfpw9779 [place] [address]Dr. Chrissy Freddie NEUT # 10.5 103/ul Critically high 1.4-6.5 The [facility] Comment on above: Performed By: #### C BC ####[facility] Leluehbzur5646 [place] [address]Dr. Chrissy Freddie Neutrophils/100 WBC (Bld) 75.1 % Critically high 43.0-75.0 The [facility] Comment on above: Performed By: #### C BC ####[facility] Sapqcruegf9778 [place] [id number]. Chrissy Freddie Platelet mean volume (Bld) [Entitic vol] 10.6 fL Normal 9.5-13.5 The [facility] Comment on above: Performed By: #### C BC ####[facility] Yczvjduseb4126 [place] [address]Dr. Tishrowan Freddie PLT 309 103/ul Normal 150-450 The [facility] Comment on above: Performed By: #### C BC ####[facility] Dckqktetfz0493 [place] [address]Dr. Chrissy Frazier RBC 5.19 106/ul Normal 4.70-6.10 The [facility] Comment on above: Performed By: #### C BC ####[facility] Sndsgljwzq8238 [place] [address]Dr. Chrissy Frazier WBC 14.0 103/ul Critically high 4.0-11.0 The [facility] Comment on above: Performed By: #### C BC ####[facility] Ubgpcxboqt4120 [place] [address]Dr. Chrissy Frazier PROF 14(COMP METB)on 022 Albumin [Mass/Vol] 4.0 g/dL Normal 3.4-5.0 The [facility] Comment on above: Performed By: #### C MP ####[facility] Thqtweimoh95[address] [place], [place] [address]Dr. Chrissy Frazier Albumin/Globulin [Mass ratio] 1.1 {ratio} Normal [place] Comment on above: Performed By: #### C MP ####[facility] Awcyjutvja2636[address] [place], [place] [address]Dr. Chrissy Frazier ALP [Catalytic activity/Vol] 67 U/L Normal 46-116 The [facility] Comment on above: Performed By: #### C MP ####[facility] Hovomprfhu9880[address] [place], [place] [address]Dr. Chrissy Frazier ALT [Catalytic activity/Vol] 40 U/L Normal 16-63 The [facility] Comment on above: Performed By: #### C MP ####[facility] Msflojgvnl144[address] [place], [place] [address]Dr. Chrissy Frazier Anion gap [Moles/Vol] 17.7 mmol/L Normal [place] Comment on above: Performed By: #### C MP ####[facility] Oshioiupzp175[address] [place], [place] [address]Dr. Chrissy Frazier AST [Catalytic activity/Vol] 27 U/L Normal 15-37 [place] Comment on above: Performed By: #### C MP ####[facility] Izwekpndtc389[address] [place], [place] [address]Dr. Chrissy Frazier Bilirubin [Mass/Vol] 0.8 mg/dL Normal 0.2-1.0 The [facility] Comment on above: Performed By: #### C MP ####[facility] Mihxxmfviq884[address] [place], [place] [address]Dr. Chrissy Frazier Calcium [Mass/Vol] 8.8 mg/dL Normal 8.5-10.1 [facility] Comment on above: Performed By: #### C MP ####[facility] Lnpmerysqg8895[address] [place], [place] [address]Dr. Chrissy Frazier Chloride [Moles/Vol] 105 mmol/L Normal 98-107 The [facility] Comment on above: Performed By: #### C MP ####[facility] Kitarkmjox2904[address] [place], [place] [address]Dr. Chrissy Frazier CO2 [Moles/Vol] 16.5 mmol/L Critically low 21.0-32.0 The [facility] Comment on above: Performed By: #### C MP ####[facility] Zjplbenpmo1709[address] [place], [place] [address]Dr. Chrissy Frazier Creatinine [Mass/Vol] 1.02 mg/dL Normal 0.70-1.30 [place] Comment on above: Performed By: #### C MP ####[facility] Kjsndqtdxf9854[address] [place], [place] [address]Dr. Chrissy Frazier EGFR-AF CROATIAN >60 Normal >=60 The [facility] Comment on above: Performed By: #### C MP ####[facility] Bszitlwycu7554[address] [place], [place] [address]Dr. Chrissy Frazier EGFR-NON AF CROATIAN >60 Normal >=60 The [facility] Comment on above: Performed By: #### C MP ####[facility] Simayyznwn0526[address] [place], [place] [address]Dr. Chrissy Frazier Globulin (S) [Mass/Vol] 3.7 g/dL Normal The [facility] Comment on above: Performed By: #### C MP ####[facility] Xpfmlmvgsw7098[address] [place], [place] [address]Dr. Chrissy Frazier Glucose [Mass/Vol] 106 mg/dL Normal 74-106 The [facility] Comment on above: Performed By: #### C MP ####[facility] Tvuiqjycay7208 [place] [address]Dr. Chrissy Frazier Potassium [Moles/Vol] 3.2 mmol/L Critically low 3.5-5.1 [place] Comment on above: Performed By: #### C MP ####[facility] Ntbhlmwcxu9717[address] [place], [place] [address]Dr. Chrissy Frazier Protein [Mass/Vol] 7.7 g/dL Normal 6.4-8.2 [facility] Comment on above: Performed By: #### C MP ####[facility] Wbkqqvnmar[address] [place], [place] [address]Dr. Chrissy Frazier Sodium [Moles/Vol] 136 mmol/L Normal 136-145 [facility] Comment on above: Performed By: #### C MP ####[facility] Slebajtbmy2019[address] [place], [place] [address]Dr. Chrissy Frazier Urea nitrogen [Mass/Vol] 10.0 mg/dL Normal 7.0-18.0 [place] Comment on above: Performed By: #### C MP ####[facility] Ujteexjgbp9689[address] [place], [place] [address]Dr. Chrissy Frazier Urea nitrogen/Creatinine [Mass ratio] 9.8 mg/mg Normal [place] Comment on above: Performed By: #### C MP ####[facility] Tabsvmdoag3024[address] [place], [place] [address]Dr. Chrissy Frazier CBC AUTO DIFFon 07-03-2022 BASO # 0.1 103/ul Normal 0.0-0.1 [place] Comment on above: Performed By: #### C BC ####[facility] Eajqpamelr1555[address] [place], [place] [address]Dr. Chrissy Frazier Basophils/100 WBC (Bld) 0.5 % Normal 0.2-2.0 [place] Comment on above: Performed By: #### C BC ####[facility] Owefnfcfqh5824[address] [place], [place] [address]Dr. Chrissy Frazier EO # 0.1 103/ul Normal 0.0-0.7 The [facility] Comment on above: Performed By: #### C BC ####[facility] Pykyoaswnf2476 [place] [address]Dr. Chrissy Freddie Eosinophils/100 WBC (Bld) 1.3 % Normal 0.9-7.0 The [facility] Comment on above: Performed By: #### C BC ####[facility] Yxtmmmqutx6204[address] [place], [place] [address]Dr. Chrissy Frazier Erythrocyte distribution width (RBC) [Ratio] 14.2 % Normal 11.0-15.0 The [facility] Comment on above: Performed By: #### C BC ####[facility] Iiisbbvrja2298[address] [place], [place] [address]Dr. Tishrowan Frazier Hematocrit (Bld) [Volume fraction] 41.7 % Critically low 42.0-54.0 The [facility] Comment on above: Performed By: #### C BC ####[facility] Viwqrqmami066[address] [place], [place] [address]Dr. Chrissy Frazier Hemoglobin (Bld) [Mass/Vol] 13.6 g/dL Critically low 14.0-18.0 The [facility] Comment on above: Performed By: #### C BC ####[facility] Fquyrgpccd507[address] [place], [place] [address]Dr. Chrissy Frazier IG # 0.04 10e3/ul Critically high 0.00-0.03 The [facility] Comment on above: Performed By: #### C BC ####[facility] Sfmzhxpvzi9086[address] [place], [place] [address]Dr. Chrissy Frazier IG % 0.4 % Normal 0.0-0.5 The [facility] Comment on above: Performed By: #### C BC ####[facility] Nfwcilrivw55[address] [place], [place] [address]Dr. Chrissy Frazier LYMPH # 3.5 103/ul Normal 1.2-3.8 The [facility] Comment on above: Performed By: #### C BC ####[facility] Bduycvzhrg4785[address] [place], [place] [address]Dr. Chrissy Frazier Lymphocytes/100 WBC (Bld) 33.5 % Normal 20.5-60.0 The [facility] Comment on above: Performed By: #### C BC ####[facility] Fwtldcfcao8586 [place] [address]DrNancy Frazier MANUAL DIFF REQ NO Normal [facility] Comment on above: Performed By: #### C BC ####[facility] Vtjwxaojze3153 [place] [address]DrNancy Frazier MCH (RBC) [Entitic mass] 27.9 pg Normal 25.9-34.0 The [facility] Comment on above: Performed By: #### C BC ####[facility] Qfhczxmabx5257[address] [place], [place] [address]DrNancy Frazier MCHC (RBC) [Mass/Vol] 32.6 g/dL Normal 29.9-35.2 The [facility] Comment on above: Performed By: #### C BC ####[facility] Znqsvqiwjq931[address] [place], [place] [address]DrNancy Frazier MCV (RBC) [Entitic vol] 85.6 fL Normal 80.0-94.0 The [facility] Comment on above: Performed By: #### C BC ####[facility] Bfwtltvtic40[address] [place], [place] [address]DrNancy Frazier MONO # 0.7 103/ul Normal 0.3-0.8 The [facility] Comment on above: Performed By: #### C BC ####[facility] Aimjgtigtz5399[address] [place], [place] [address]DrNancy Frazier Monocytes/100 WBC (Bld) 6.5 % Normal 1.7-12.0 The [facility] Comment on above: Performed By: #### C BC ####[facility] Ewdmmbchrq4[address] [place], [place] [address]DrNancy Frazier NEUT # 6.1 103/ul Normal 1.4-6.5 The [facility] Comment on above: Performed By: #### C BC ####[facility] Bcxdckzdlr4215[address] [place], [place] [address]Dr. Chrissy Frazier Neutrophils/100 WBC (Bld) 57.8 % Normal 43.0-75.0 [place] Comment on above: Performed By: #### C BC ####[facility] Hexlgdhthw2279 [place] [address]DrNancy Frazier Platelet mean volume (Bld) [Entitic vol] 10.4 fL Normal 9.5-13.5 The [facility] Comment on above: Performed By: #### C BC ####[facility] Fjrjgxbigt74[address] [place] [address]DrNancy Frazier PLT 288 103/ul Normal 150-450 [facility] Comment on above: Performed By: #### C BC ####[facility] Vwwdryoxdl5[address] [place], [place] [address]DrNancy Frazier RBC 4.87 106/ul Normal 4.70-6.10 [facility] Comment on above: Performed By: #### C BC ####[facility] Vdfdkkzapb9[address] [place], [place] [address]DrNancy Frazier WBC 10.5 103/ul Normal 4.0-11.0 The [facility] Comment on above: Performed By: #### C BC ####[facility] Aonjmagpvb36[address] [place], [place] [address]Dr. Chrissy Frazier PROF 14(COMP METB)on 022 Albumin [Mass/Vol] 3.6 g/dL Normal 3.4-5.0 [facility] Comment on above: Performed By: #### C MP ####[facility] Mfrdzbojkd36[address] [place], [place] [address]DrNancy Frazier Albumin/Globulin [Mass ratio] 1.1 {ratio} Normal [facility] Comment on above: Performed By: #### C MP ####[facility] Wboickbtoq389[address] [place], [place] [address]DrNancy Frazier ALP [Catalytic activity/Vol] 58 U/L Normal 46-116 The [facility] Comment on above: Performed By: #### C MP ####[facility] Mekuymcbvk00[address] [place], [place] [address]DrNancy Frazier ALT [Catalytic activity/Vol] 30 U/L Normal 16-63 [place] Comment on above: Performed By: #### C MP ####[facility] Vwuuiitxpc9[address] [place] [address]Dr. Tishrowan Freddie Anion gap [Moles/Vol] 14.5 mmol/L Normal [place] Comment on above: Performed By: #### C MP ####[facility] Uhdmucbhwi765[address] [place], [place] [address]Dr. Chrissy Freddie AST [Catalytic activity/Vol] 17 U/L Normal 15-37 [place] Comment on above: Performed By: #### C MP ####[facility] Pndbmnyvym8866[address] [place], [place] [address]Dr. Chrissy Frazier Bilirubin [Mass/Vol] 0.6 mg/dL Normal 0.2-1.0 [place] Comment on above: Performed By: #### C MP ####[facility] Bjsoykbyxg214[address] [place], [place] [address]Dr. Chrissy Frazier Calcium [Mass/Vol] 8.4 mg/dL Critically low 8.5-10.1 Th [facility] Comment on above: Performed By: #### C MP ####[facility] Kjxxsnfybj8979[address] [place], [place] [address]Dr. Chrissy Frazier Chloride [Moles/Vol] 106 mmol/L Normal 98-107 The [facility] Comment on above: Performed By: #### C MP ####[facility] Ewdsyryogm6269[address] [place], [place] [address]Dr. Chrissy Frazier CO2 [Moles/Vol] 22.6 mmol/L Normal 21.0-32.0 The [facility] Comment on above: Performed By: #### C MP ####[facility] Hsqtmaowjq8794[address] [place], [place] [address]Dr. Chrissy Frazier Creatinine [Mass/Vol] 1.08 mg/dL Normal 0.70-1.30 [place] Comment on above: Performed By: #### C MP ####[facility] Wsxkgxdmuv7918[address] [place], [place] [address]Dr. Chrissy Frazier EGFR-AF CROATIAN >60 Normal >=60 The [facility] Comment on above: Performed By: #### C MP ####[facility] Seopzpcjvi499[address] [place] [address]Dr. Chrissy Frazier EGFR-NON AF CROATIAN >60 Normal >=60 [facility] Comment on above: Performed By: #### C MP ####[facility] Bjsqesjjrx7621 [place] [address]Dr. Chrissy Freddie Globulin (S) [Mass/Vol] 3.3 g/dL Normal [place] Comment on above: Performed By: #### C MP ####[facility] Kzwfhebpuu2101 [place] [address]Dr. Chrissy Freddie Glucose [Mass/Vol] 94 mg/dL Normal 74-106 [facility] Comment on above: Performed By: #### C MP ####[facility] Jqagrnnlww23[address] [place] [address]Dr. Chrissy Freddie Potassium [Moles/Vol] 3.1 mmol/L Critically low 3.5-5.1 [place] Comment on above: Performed By: #### C MP ####[facility] Yfgqohqbng2506 [place] [address]Dr. Chrissy Freddie Protein [Mass/Vol] 6.9 g/dL Normal 6.4-8.2 The [facility] Comment on above: Performed By: #### C MP ####[facility] Oocxeiuiyx89[address] [place] [address]Dr. Chrissy Freddie Sodium [Moles/Vol] 140 mmol/L Normal 136-145 The [facility] Comment on above: Performed By: #### C MP ####[facility] Rreqdrjmwb1978 [place] [address]Dr. Chrissy Freddie Urea nitrogen [Mass/Vol] 10.0 mg/dL Normal 7.0-18.0 The [facility] Comment on above: Performed By: #### C MP ####[facility] Vfymcugurd7641 [place] [address]Dr. Chrissy Frazier Urea nitrogen/Creatinine [Mass ratio] 9.3 mg/mg Normal [place] Comment on above: Performed By: #### C MP ####[facility] Yatsxhygdt0917 [place] [address]Dr. Chrissy Freddie CBC AUTO DIFFon 07-02-2022 BASO # 0.0 103/ul Normal 0.0-0.1 [place] Comment on above: Performed By: #### C BC ####[facility] Lunxeygxso8754[address] [place], [place] [address]Dr. Chrissy Frazier Basophils/100 WBC (Bld) 0.2 % Normal 0.2-2.0 The [facility] Comment on above: Performed By: #### C BC ####[facility] Aewzemsxmn1504[address] [place], [place] [address]Dr. Chrissy Frazier EO # 0.0 103/ul Normal 0.0-0.7 The [facility] Comment on above: Performed By: #### C BC ####[facility] Ctgdhtyuwz1169[address] [place], [place] [address]Dr. Chrissy Frazier Eosinophils/100 WBC (Bld) 0.0 % Critically low 0.9-7.0 [place] Comment on above: Performed By: #### C BC ####[facility] Uobqcznojm215[address] [place], [place] [address]Dr. Tishrowan Frazier Erythrocyte distribution width (RBC) [Ratio] 14.2 % Normal 11.0-15.0 [place] Comment on above: Performed By: #### C BC ####[facility] Vhdmnmauve6949[address] [place], [place] [address]Dr. Chrissy Frazier Hematocrit (Bld) [Volume fraction] 46.2 % Normal 42.0-54.0 The [facility] Comment on above: Performed By: #### C BC ####[facility] Nkaualmzvd3313[address] [place], [place] [address]Dr. Chrissy Frazier Hemoglobin (Bld) [Mass/Vol] 15.2 g/dL Normal 14.0-18.0 The [facility] Comment on above: Performed By: #### C BC ####[facility] Iryizaltlh178[address] [place], [place] [address]Dr. Chrissy Frazier IG # 0.07 10e3/ul Critically high 0.00-0.03 [facility] Comment on above: Performed By: #### C BC ####[facility] Wgvccxbtfq0142 [place] [address]DrNancy Chrissy Frazier IG % 0.4 % Normal 0.0-0.5 [place] Comment on above: Performed By: #### C BC ####[facility] Zhijiaoaow8918 [place] [address]DrNancy Chrissy Freddie LYMPH # 2.8 103/ul Normal 1.2-3.8 [place] Comment on above: Performed By: #### C BC ####[facility] Oocgoeafne133[address] [place], [place] [address]DrNancy Tishrowan Frazier Lymphocytes/100 WBC (Bld) 16.7 % Critically low 20.5-60.0 [place] Comment on above: Performed By: #### C BC ####[facility] Aseajkfalo6979[address] [place], [place] [address]DrNancy Frazier MANUAL DIFF REQ NO Normal [facility] Comment on above: Performed By: #### C BC ####[facility] Hpgvhosbdz1564 [place] [address]DrNancy Chrissy Freddie MCH (RBC) [Entitic mass] 28.3 pg Normal 25.9-34.0 [place] Comment on above: Performed By: #### C BC ####[facility] Skdrfqkrll9755[address] [place], [place] [address]DrNancy Chrissy Freddie MCHC (RBC) [Mass/Vol] 32.9 g/dL Normal 29.9-35.2 [place] Comment on above: Performed By: #### C BC ####[facility] Aghnrexbje0935[address] [place], [place] [address]DrNancy Tishrowan Frazier MCV (RBC) [Entitic vol] 86.0 fL Normal 80.0-94.0 [place] Comment on above: Performed By: #### C BC ####[facility] Xlzvcpkgqj8694[address] [place], [place] [address]DrNancy Frazier MONO # 0.9 103/ul Critically high 0.3-0.8 The [facility] Comment on above: Performed By: #### C BC ####[facility] Mujirctntd0874 [place] [address]Dr. Chrissy Frazier Monocytes/100 WBC (Bld) 5.1 % Normal 1.7-12.0 [place] Comment on above: Performed By: #### C BC ####[facility] Ttalxxgfgk3488 [place] [address]Dr. Chrissy Frazier NEUT # 13.2 103/ul Critically high 1.4-6.5 [facility] Comment on above: Performed By: #### C BC ####[facility] Jwzvnttkch6763 [place] [address]Dr. Chrissy Frazier Neutrophils/100 WBC (Bld) 77.6 % Critically high 43.0-75.0 [place] Comment on above: Performed By: #### C BC ####[facility] Fgoeazivki1630 [place] [address]Dr. Chrissy Frazier Platelet mean volume (Bld) [Entitic vol] 11.6 fL Normal 9.5-13.5 The [facility] Comment on above: Performed By: #### C BC ####[facility] Cbatqmdmpf0412[address] [place], [place] [address]Dr. Chrissy Frazier PLT 317 103/ul Normal 150-450 The [facility] Comment on above: Performed By: #### C BC ####[facility] Csfzgaoone7959 [place] [address]Dr. Chrissy Frazier RBC 5.37 106/ul Normal 4.70-6.10 The [facility] Comment on above: Performed By: #### C BC ####[facility] Vqrmgytmvr8632 [place] [address]Dr. Chrissy Frazier WBC 17.1 103/ul Critically high 4.0-11.0 The [facility] Comment on above: Performed By: #### C BC ####[facility] Hcwnnrdbss5178 [place] [address]Dr. Chrissy Frazier CT ABD/PELV W CONon 07-02-[address] ABD/PELV W CON Normal [facility] H PYLORI ANTIBODY IGGon 06-21 H. PYLORI IGG ABS 0.13 Index Value Normal 0.00-0.79 [facility] Comment on above: Result Comment: Nega tive <0.80 Equivocal 0.80 - 0.89 Positive >0.89 Performed By: #### H PYLLC ####[facility] Xtcjvdqaxj5732 [place] [address]Dr. Chrissy Frazier PROF 14(COMP METB)on 022 Albumin [Mass/Vol] 3.8 g/dL Normal 3.4-5.0 [facility] Comment on above: Performed By: #### C MP ####[facility] Yjpjwzcklt474[address] [place], [place] [address]Dr. Chrissy Frazier Albumin/Globulin [Mass ratio] 1.0 {ratio} Normal [place] Comment on above: Performed By: #### C MP ####[facility] Vmsvotdwup817[address] [place], [place] [address]Dr. Chrissy Frazier ALP [Catalytic activity/Vol] 68 U/L Normal 46-116 [place] Comment on above: Performed By: #### C MP ####[facility] Btrrbhendh726[address] [place], [place] [address]Dr. Chrissy Frazier ALT [Catalytic activity/Vol] 34 U/L Normal 16-63 [place] Comment on above: Performed By: #### C MP ####[facility] Thnejvvdcg6568[address] [place], [place] [address]Dr. Chrissy Frazier Anion gap [Moles/Vol] 17.9 mmol/L Normal [place] Comment on above: Performed By: #### C MP ####[facility] Ixtuugwtqt446[address] [place], [place] [address]Dr. Chrissy Frazier AST [Catalytic activity/Vol] 24 U/L Normal 15-37 [place] Comment on above: Performed By: #### C MP ####[facility] Qefwvpfvsr8109[address] [place], [place] [address]Dr. Chrissy Frazier Bilirubin [Mass/Vol] 0.6 mg/dL Normal 0.2-1.0 The [facility] Comment on above: Performed By: #### C MP ####[facility] Tooczrfqrh9859 [place] [address]Dr. Chrissy Frazier Calcium [Mass/Vol] 8.8 mg/dL Normal 8.5-10.1 [facility] Comment on above: Performed By: #### C MP ####[facility] Ftlnmoxldr8273 [place] [address]Dr. Chrissy Frazier Chloride [Moles/Vol] 105 mmol/L Normal 98-107 [place] Comment on above: Performed By: #### C MP ####[facility] Uovbsgpcer2500 [place] [address]Dr. Chrissy Frazier CO2 [Moles/Vol] 18.8 mmol/L Critically low 21.0-32.0 [place] Comment on above: Performed By: #### C MP ####[facility] Gyipvloulo849[address] [place], [place] [address]Dr. Chrissy Frazier Creatinine [Mass/Vol] 1.15 mg/dL Normal 0.70-1.30 [place] Comment on above: Performed By: #### C MP ####[facility] Lmfmngfzhn4708[address] [place], [place] [address]Dr. Chrissy Frazier EGFR-AF CROATIAN >60 Normal >=60 [facility] Comment on above: Performed By: #### C MP ####[facility] Vlwdxpmeuq4954 [place] [address]Dr. Chrissy Frazier EGFR-NON AF CROATIAN >60 Normal >=60 [place] Comment on above: Performed By: #### C MP ####[facility] Ovrmqlacdu5720 [place] [address]Dr. Chrissy Frazier Globulin (S) [Mass/Vol] 3.9 g/dL Normal [place] Comment on above: Performed By: #### C MP ####[facility] Gpropbbqee6825 [place] [address]Dr. Chrissy Frazier Glucose [Mass/Vol] 124 mg/dL Critically high 74-106 [facility] Comment on above: Performed By: #### C MP ####[facility] Nhgrrqcgsj9590 [place] [address]Dr. Chrissy Frazier Potassium [Moles/Vol] 3.7 mmol/L Normal 3.5-5.1 [place] Comment on above: Performed By: #### C MP ####[facility] Yxbijumtom0508 [place] [address]Dr. Chrissy Frazier Protein [Mass/Vol] 7.7 g/dL Normal 6.4-8.2 [facility] Comment on above: Performed By: #### C MP ####[facility] Hgdvtxxjyj7665[address] [place], [place] [address]Dr. Chrissy Frazier Sodium [Moles/Vol] 138 mmol/L Normal 136-145 [facility] Comment on above: Performed By: #### C MP ####[facility] Uwlrrsnyxv425[address] [place], [place] [address]Dr. Chrissy Frazier Urea nitrogen [Mass/Vol] 9.0 mg/dL Normal 7.0-18.0 [place] Comment on above: Performed By: #### C MP ####[facility] Vjggllhycj1017[address] [place], [place] [address]Dr. Chrissy Frazier Urea nitrogen/Creatinine [Mass ratio] 7.8 mg/mg Normal [place] Comment on above: Performed By: #### C MP ####[facility] Yyrbgqigmj6208[address] [place], [place] [address]Dr. Chrissy Frazier AMMONIAon 07-01-2022 Ammonia (P) [Moles/Vol] 14 umol/L Normal 11-32 The [facility] Comment on above: Performed By: #### A MM ####[facility] Xhjwwugfts605[address] [place], [place] [address]Dr. Chrissy Frazier AMYLASEon 07-01-2022 Amylase [Catalytic activity/Vol] 32 U/L Normal 25-115 [place] Comment on above: Performed By: #### A MY, PHOS, CMP, LIPA ####[facility] Nyvbkvqsms8862 [place] [address]Dr. Chrissy Frazier CBC AUTO DIFFon 07-01-2022 BASO # 0.1 103/ul Normal 0.0-0.1 [place] Comment on above: Performed By: #### C BC ####[facility] Ajdmnezdus4764 [place] [address]Dr. Tishrowan Freddie Basophils/100 WBC (Bld) 0.4 % Normal 0.2-2.0 [place] Comment on above: Performed By: #### C BC ####[facility] Jvtxzencbt3720[address] [place], [place] [address]Dr. Chrissy Frazier EO # 0.2 103/ul Normal 0.0-0.7 The [facility] Comment on above: Performed By: #### C BC ####[facility] Vxqgnzrfkf184[address] [place], [place] [address]Dr. Chrissy Frazier Eosinophils/100 WBC (Bld) 0.9 % Normal 0.9-7.0 The [facility] Comment on above: Performed By: #### C BC ####[facility] Zsnkgdxzbn2597[address] [place], [place] [address]Dr. Chrissy Frazier Erythrocyte distribution width (RBC) [Ratio] 13.8 % Normal 11.0-15.0 [place] Comment on above: Performed By: #### C BC ####[facility] Udnvzpkeer6759[address] [place], [place] [address]Dr. Chrissy Frazier Hematocrit (Bld) [Volume fraction] 46.3 % Normal 42.0-54.0 [place] Comment on above: Performed By: #### C BC ####[facility] Umjajnifeu389[address] [place], [place] [address]Dr. Chrissy Frazier Hemoglobin (Bld) [Mass/Vol] 15.4 g/dL Normal 14.0-18.0 The [facility] Comment on above: Performed By: #### C BC ####[facility] Kdnfrcjunt2499[address] [place], [place] [address]DrNancy Frazier IG # 0.05 10e3/ul Critically high 0.00-0.03 [facility] Comment on above: Performed By: #### C BC ####[facility] Vwaiuruati385[address] [place], [place] [address]Dr. Chrissy Frazier IG % 0.3 % Normal 0.0-0.5 [place] Comment on above: Performed By: #### C BC ####[facility] Mpbapalclk0469 [place] [address]DrNancy Frazier LYMPH # 2.0 103/ul Normal 1.2-3.8 The [facility] Comment on above: Performed By: #### C BC ####[facility] Chszfvboqg3920 [place] [address]DrNancy Frazier Lymphocytes/100 WBC (Bld) 12.9 % Critically low 20.5-60.0 The [facility] Comment on above: Performed By: #### C BC ####[facility] Wemhjilrwd8727[address] [place], [place] [address]DrNancy Frazier MANUAL DIFF REQ NO Normal [facility] Comment on above: Performed By: #### C BC ####[facility] Rpkclmpweu0890 [place] [address]DrNancy Frazier MCH (RBC) [Entitic mass] 28.6 pg Normal 25.9-34.0 The [facility] Comment on above: Performed By: #### C BC ####[facility] Ffbcvceobl2836[address] [place], [place] [address]DrNancy Frazier MCHC (RBC) [Mass/Vol] 33.3 g/dL Normal 29.9-35.2 The [facility] Comment on above: Performed By: #### C BC ####[facility] Xxgrxbqeqn6554[address] [place], [place] [address]DrNancy Frazier MCV (RBC) [Entitic vol] 86.1 fL Normal 80.0-94.0 The [facility] Comment on above: Performed By: #### C BC ####[facility] Uzrowfhmnx129[address] [place], [place] [address]DrNancy Frazier MONO # 0.5 103/ul Normal 0.3-0.8 The [facility] Comment on above: Performed By: #### C BC ####[facility] Gtzmeyvddh8097[address] [place], [place] [address]DrNancy Frazier Monocytes/100 WBC (Bld) 3.0 % Normal 1.7-12.0 The [facility] Comment on above: Performed By: #### C BC ####[facility] Qshvtdthgx3736 [place] [address]Dr. Chrissy Frazier NEUT # 13.0 103/ul Critically high 1.4-6.5 The [facility] Comment on above: Performed By: #### C BC ####[facility] Ksizhxtxto2275 [place] [address]Dr. Chrissy Frazier Neutrophils/100 WBC (Bld) 82.5 % Critically high 43.0-75.0 The [facility] Comment on above: Performed By: #### C BC ####[facility] Tlstkbdpyt601[address] [place], [place] [address]Dr. Chrissy Frazier Platelet mean volume (Bld) [Entitic vol] 10.0 fL Normal 9.5-13.5 The [facility] Comment on above: Performed By: #### C BC ####[facility] Ohyovdyydp1084[address] [place], [place] [address]Dr. Chrissy Frazier PLT 370 103/ul Normal 150-450 The [facility] Comment on above: Performed By: #### C BC ####[facility] Rexkvgqtgs5097[address] [place], [place] [address]Dr. Chrissy Frazier RBC 5.38 106/ul Normal 4.70-6.10 The [facility] Comment on above: Performed By: #### C BC ####[facility] Sipvakkkao2277[address] [place], [place] [address]Dr. Chrissy Frazier WBC 15.8 103/ul Critically high 4.0-11.0 The [facility] Comment on above: Performed By: #### C BC ####[facility] Gjedcdltfx283[address] [place], [place] [address]Dr. Chrissy Frazier CULTURE URINEon 07-01-2022 CULTURE URINE Culture Observations: No growth Normal The [facility] Comment on above: Performed By: #### U RCX ####[facility] Hrmmqfagck7177[address] [place], [place] [address]Dr. Chrissy Frazier Covid-19 PCR (CVDTBH)on 06-21 SARS-CoV-2 (COVID-19) RNA RHIANNON+probe Ql (Unsp spec) Not detected Normal NOT DETECTED The [facility] Comment on above: Result Comment: When diagnostic [...] for this test is supported by the [employer] and Human Service's declaration that [...] be used). Performed By: #### C VDTBH ####[facility] Sokbsfzqig6726 [place] [address]Dr. Chrissy Frazier DRUG SCREEN RAPID (URINE)on 07-01-2022 AMP Negative Normal NEGATIVE The [facility] Comment on above: Performed By: #### D REYES UAMIC ####[facility] Rcmesdnbeo5685 [place] [address]Dr. Chrissy Frazier BAR Negative Normal NEGATIVE The [facility] Comment on above: Performed By: #### D REYES UAMIC ####[facility] Qpujbgaayz4395 [place] [address]Dr. Chrissy Frazier BUP Negative Normal NEGATIVE The [facility] Comment on above: Performed By: #### D REYES UAMIC ####[facility] Xqrjdskpdj4580 [place] [address]Dr. Chrissy Frazier BZO Negative Normal NEGATIVE The [facility] Comment on above: Performed By: #### D REYES UAMIC ####[facility] Lwsppytcdd1917 [place] [id number]. Chrissy Frazier LAUREN Negative Normal NEGATIVE The [facility] Comment on above: Performed By: #### Amelie CHAMBERS UAMIC ####[facility] Otkucrzjpy4112[address] [place], [place] [address]Dr. Chrissy Frazier CUT-OFFS SEE BELOW Normal [place] Comment on above: Result Comment: AMP (Amphetamine): 500ng/mL, BAR (Barbituates): 200 ng/mL, BZO (Benzodiazepines): 150 ng/mL, BUP (Buprenorphine): 10 ng/mL, LAUREN (Cocaine): 150 ng/mL, mAMP (Methamphetamine): 500 ng/mL, MTD (Methadone): 200 ng/mL, OPI (Opiates): 100 ng/mL, OXY (Oxycodone): 100 ng/mL, PCP (Phencyclidine): 25 ng/mL, PPX (Propoxyphene): 300 ng/mL, THC (Cannabinoids): 50 ng/mL, TCA (Trycyclic Antidepressants): 300 ng/mL Performed By: #### Amelie CHAMBERS UAMIC ####[facility] Eokxwxlnkx612[address] [place], [place] [address]Dr. Chrissy Frazier DRUG CUT HEADER DRUG CLASS TEST SYSTEM CUT-OFF CONCENTRATIONS ARE FOLLOWS: Normal The [facility] Comment on above: Performed By: #### Amelie CHAMBERS UAMIC ####[facility] Gwfmfqfxkf8276[address] [place], [place] [address]Dr. Chrissy Frazier mAMP Negative Normal NEGATIVE The [facility] Comment on above: Performed By: #### Amelie CHAMBERS UAMIC ####[facility] Vymkeivjfv5725[address] [place], [place] [address]Dr. Chrissy Frazier MTD Negative Normal NEGATIVE The [facility] Comment on above: Performed By: #### Amelie CHAMBERS UAMIC ####[facility] Wbfgblmwwv29[address] [place], [place] [address]Dr. Chrissy Frazier OPI Negative Normal NEGATIVE The [facility] Comment on above: Performed By: #### Amelie CHAMBERS UAMIC ####[facility] Upknyhsngt24[address] [place], [place] [address]Dr. Chrissy Frazier OXY Negative Normal NEGATIVE The [facility] Comment on above: Performed By: #### D REYES UAMIC ####[facility] Yldcezfnto0479 [place] [address]Dr. Chrissy Frazier PCP Negative Normal NEGATIVE The [facility] Comment on above: Performed By: #### D REYES, UAMIC ####[facility] Zxmwdgtfvx1542 [place] [address]Dr. Chrissy Frazier PPX Negative Normal NEGATIVE The [facility] Comment on above: Performed By: #### D REYES, UAMIC ####[facility] Hsjojapcds1557 [place] [address]Dr. Chrissy Frazier TCA Negative Normal NEGATIVE The [facility] Comment on above: Performed By: #### D REYES UAMIC ####[facility] [address]hne[address] [place] [address]Dr. Chrissy Frazier THC Positive Abnormal NEGATIVE The [facility] Comment on above: Performed By: #### D REYES UAMIC ####[facility] Wkmfbitvjh25[address] [place] [address]Dr. Chrissy Frazier LACTATE/LACTIC ACIDon 2021 Lactate [Moles/Vol] 4.4 mmol/L Critically high 0.4-1.9 [place] Comment on above: Performed By: #### L ACT ####[facility] Rrgrtuuova[address] [place], [place] [address]Dr. Chrissy Frazier LIPASEon 07-01-2022 Lipase [Catalytic activity/Vol] 57.0 U/L Critically low 73.0-393.0 The [facility] Comment on above: Performed By: #### A MY, PHOS, CMP, LIPA ####[facility] Jpfnaojpyo[address] [place] [address]Dr. Chrissy Frazier PHOSPHORUSon 07-01-2022 Phosphate [Mass/Vol] 1.4 mg/dL Critically low 2.6-4.7 The [facility] Comment on above: Performed By: #### A MY, PHOS, CMP, LIPA ####[facility] Dkdswvicss[address] [place], [place] [address]Dr. Chrissy Frazier PROF 14(COMP METB)on 022 Albumin [Mass/Vol] 4.2 g/dL Normal 3.4-5.0 The [facility] Comment on above: Performed By: #### A MY, PHOS, CMP, LIPA ####[facility] Fulpqywbgu[address] [place] [address]Dr. Chrissy Frazier Albumin/Globulin [Mass ratio] 1.1 {ratio} Normal [place] Comment on above: Performed By: #### A MY, PHOS, CMP, LIPA ####[facility] Bpzgvjvest69[address] [place] [address]Dr. Chrissy Frazier ALP [Catalytic activity/Vol] 73 U/L Normal 46-116 The [facility] Comment on above: Performed By: #### A MY, PHOS, CMP, LIPA ####[facility] Wkyudtqfzs[address] [place], [place] [address]Dr. Chrissy Frazier ALT [Catalytic activity/Vol] 43 U/L Normal 16-63 [place] Comment on above: Performed By: #### A MY, PHOS, CMP, LIPA ####[facility] Pxchyabyzo38[address] [place], [place] [address]Dr. Chrissy Frazier Anion gap [Moles/Vol] 19.0 mmol/L Normal [place] Comment on above: Performed By: #### A MY, PHOS, CMP, LIPA ####[facility] Dhjmfkdxbu4497 [place] [address]Dr. Chrissy Frazier AST [Catalytic activity/Vol] 21 U/L Normal 15-37 [place] Comment on above: Performed By: #### A MY, PHOS, CMP, LIPA ####[facility] Ewclmfzvuo3296 [place] [address]Dr. Chrissy Frazier Bilirubin [Mass/Vol] 0.5 mg/dL Normal 0.2-1.0 [place] Comment on above: Performed By: #### A MY, PHOS, CMP, LIPA ####[facility] Sfqbxgirbr[address] [place], [place] [address]Dr. Chrissy Frazier Calcium [Mass/Vol] 9.3 mg/dL Normal 8.5-10.1 [facility] Comment on above: Performed By: #### A MY, PHOS, CMP, LIPA ####[facility] Clhgcuqxcg8122 [place] [address]Dr. Chrissy Frazier Chloride [Moles/Vol] 103 mmol/L Normal 98-107 [place] Comment on above: Performed By: #### A MY, PHOS, CMP, LIPA ####[facility] Cxkvkogfsr1275 [place] [address]Dr. Chrissy Frazier CO2 [Moles/Vol] 21.1 mmol/L Normal 21.0-32.0 The [facility] Comment on above: Performed By: #### A MY, PHOS, CMP, LIPA ####[facility] Ynpebpfrcc[address] [place], [place] [address]Dr. Chrissy Frazier Creatinine [Mass/Vol] 1.44 mg/dL Critically high 0.70-1.30 [place] Comment on above: Performed By: #### A MY, PHOS, CMP, LIPA ####[facility] Ukmkcrbvii4[address] [place], [place] [address]Dr. Chrissy Frazier EGFR-AF CROATIAN >60 Normal >=60 [facility] Comment on above: Performed By: #### A MY, PHOS, CMP, LIPA ####[facility] Qwfogafyyh3121 [place] [address]Dr. Chrissy Frazier EGFR-NON AF CROATIAN 57 mL/min/1.73m2 Critically low >=60 The [facility] Comment on above: Performed By: #### A MY, PHOS, CMP, LIPA ####[facility] Bnfamcglsd3112 [place] [address]Dr. Chrissy Frazier Globulin (S) [Mass/Vol] 3.9 g/dL Normal The [facility] Comment on above: Performed By: #### A MY, PHOS, CMP, LIPA ####[facility] Wtwvdpylyu5130 [place] [address]Dr. Chrissy Frazier Glucose [Mass/Vol] 148 mg/dL Critically high 74-106 [facility] Comment on above: Performed By: #### A MY, PHOS, CMP, LIPA ####[facility] Mwtqbwwuji2153 [place] [address]Dr. Chrissy Frazier Potassium [Moles/Vol] 3.1 mmol/L Critically low 3.5-5.1 The [facility] Comment on above: Performed By: #### A MY, PHOS, CMP, LIPA ####[facility] Srmjjsdbjc3443 [place] [address]Dr. Chrissy Frazier Protein [Mass/Vol] 8.1 g/dL Normal 6.4-8.2 [facility] Comment on above: Performed By: #### A MY, PHOS, CMP, LIPA ####[facility] Jlakwykkpo0381 [place] [address]Dr. Chrissy Frazier Sodium [Moles/Vol] 140 mmol/L Normal 136-145 [facility] Comment on above: Performed By: #### A MY, PHOS, CMP, LIPA ####[facility] Ydwpoltrpe1837 [place] [address]Dr. Chrissy Frazier Urea nitrogen [Mass/Vol] 10.0 mg/dL Normal 7.0-18.0 The [facility] Comment on above: Performed By: #### A MY, PHOS, CMP, LIPA ####[facility] Glzoqiakkt0743 [place] [address]Dr. Chrissy Frazier Urea nitrogen/Creatinine [Mass ratio] 6.9 mg/mg Normal The [facility] Comment on above: Performed By: #### A MY, PHOS, CMP, LIPA ####[facility] Iewssmhtza8942 [place] [address]Dr. Chrissy Frazier UA RANDOM W/MICROSCOPICon BACTERIA TRACE Abnormal NONE SEEN The [facility] Comment on above: Performed By: #### D SORAYA CHAMBERSMIC ####[facility] Coyafrxcyn5780 [place] [address]Dr. Tishrowan Frazier Bilirubin Ql (U) Negative Normal NEGATIVE The [facility] Comment on above: Performed By: #### D REYES UAMIC ####[facility] Zzexdubsxi38[address] [place], [place] [address]Dr. Tishrowan Freddie CAST NONE SEEN Normal NONE SEEN The [facility] Comment on above: Performed By: #### Amelie CHAMBERS UAMIC ####[facility] Pimimxwynu5[address] [place], [place] [address]Dr. Chrissy Frazier Clarity (U) CLEAR Normal CLEAR The [facility] Comment on above: Performed By: #### Amelie CHAMBERS UAMIC ####[facility] Whxjvsfkwo5159[address] [place], [place] [address]Dr. Chrissy Frazier Color (U) YELLOW Normal YELLOW The [facility] Comment on above: Performed By: #### Amelie CHAMBERS UAMIC ####[facility] Emzmdsjqbx[address] [place], [place] [address]Dr. Chrissy Frazier Crystals LM Nom (Urine sed) NONE SEEN Normal NONE SEEN The [facility] Comment on above: Performed By: #### Amelie CHAMBERS UAMIC ####[facility] Daxxzrdnco[address] [place], [place] [address]Dr. Chrissy Frazier Epithelial cells LM Ql (Urine sed) RARE Normal NONE SEEN /RARE The [facility] Comment on above: Performed By: #### Amelie CHAMBERS UAMIC ####[facility] Ykkolssdxy2176[address] [place], [place] [address]Dr. Chrissy Frazier Glucose Ql (U) Negative Normal NEGATIVE The [facility] Comment on above: Performed By: #### Amelie CHAMBERS UAMIC ####[facility] Bfjqezglvl9036[address] [place], [place] [address]Dr. Chrissy Frazier Hemoglobin Ql (U) Negative Normal NEGATIVE The [facility] Comment on above: Performed By: #### Amelie CHAMBERS UAMIC ####[facility] Oeusaxluvq1885[address] [place], [place] [address]Dr. Chrissy Frazier Ketones Ql (U) 40 mg/dl Abnormal NEGATIVE The [facility] Comment on above: Performed By: #### Amelie CHAMBERS UAMIC ####[facility] Ajqwgwlfdd9547[address] [place], [place] [address]Dr. Chrissy Frazier LEUKOCYTES Negative Normal NEGATIVE The [facility] Comment on above: Performed By: #### Amelie CHAMBERS UAMIC ####[facility] Batkngnpnn2344 [place] [address]Dr. Chrissy Frazier MUCOUS MODERATE Abnormal NONE SEEN The [facility] Comment on above: Performed By: #### Amelie CHAMBERS UAMIC ####[facility] Wzovcpuejr5028 [place] [address]Dr. Chrissy Frazier Nitrite Ql (U) Negative Normal NEGATIVE The [facility] Comment on above: Performed By: #### D REYES UAMIC ####[facility] Cxntpqoide524[address] [place], [place] [address]Dr. Chrissy Frazier pH (U) 6.0 [pH] Normal 5-9 The [facility] Comment on above: Performed By: #### Amelie CHAMBERS UAMIC ####[facility] Bxxpdqmgmu9429 [place] [address]Dr. Chrissy Frazier RBC 0-2 Normal 0-2 The [facility] Comment on above: Performed By: #### Amelie CHAMBERS UAMIC ####[facility] Tavhwxvbwm8[address] [place], [place] [address]Dr. Chrissy Frazier SPEC GRAVITY 1.020 Normal 1.005-<=1.025 The [facility] Comment on above: Performed By: #### Amelie CHAMBERS UAMIC ####[facility] Qyytiwahxc[address] [place], [place] [address]Dr. Chrissy Frazier UA PROTEIN Negative Normal NEGATIVE/ TRACE The [facility] Comment on above: Performed By: #### Amelie CHAMBERS UAMIC ####[facility] Znrjkhtwpu9559[address] [place], [place] [address]Dr. Chrissy Frazier Urobilinogen Qn (U) 0.2 {Estrellita'U}/dL Normal 0.2 - 1. 0 The [facility] Comment on above: Performed By: #### Amelie CHAMBERS UAMIC ####[facility] Mizvhasprq[address] [place], [place] [address]Dr. Chrissy Frazier WBC 0-2 Abnormal NONE SEEN The [facility] Comment on above: Performed By: #### Amelie CHAMBERS UAMIC ####[facility] Ysssagrmcm68[address] [place], [place] [address]Yn. Chrissy Frazier XR ABD FLAT UP_PA Enoch 07-01 XR ABD FLAT UP_PA CH Normal The [facility] Covid-19 PCR (CVDTB)on SARS-CoV-2 (COVID-19) RNA RHIANNON+probe Ql (Unsp spec) Not detected Normal NOT DETECTED The [facility] Comment on above: Result Comment: When diagnostic [...] for this test is supported by the [employer] of [employer] and Human Service's declaration that [...] longer be used). Performed By: #### [facility] ####[facility] Hundsbpavl3645 [place], [place] [address]Ig. Chrissy Frazier SYMPTOMATIC COVID-19 ANTIGEN on 04-23-2022 EUA Statement SEE BELOW Normal [facility] Comment on above: Result Comment: This [...] revoked sooner. Performed By: #### C VDAGS ####[facility] Hefdllwjca[address] [place], [place] [address]Dr. Chrissy Frazier SARS-CoV-2 (COVID-19) RNA RHIANNON+probe Ql (Unsp spec) Negative Normal NEGATIVE The [facility] Comment on above: Performed By: #### C VDAGS ####[facility] Zncbxvheqm01[address] [place], [place] [address]Dr. Chrissy Frazier AMYLASEon 04-04-2022 Amylase [Catalytic activity/Vol] 40 U/L Normal 25-115 The [facility] Comment on above: Performed By: #### C MPTERRENCE, LIPA ####[facility] Tqwkamzsqx0[address] [place], [place] [address]Dr. Chrissy Frazier CBC AUTO DIFFon 04-04-2022 BASO # 0.1 103/ul Normal 0.0-0.1 [place] Comment on above: Performed By: #### C BC ####[facility] Ncupekdhbz9345[address] [place], [place] [address]Dr. Chrissy Frazier Basophils/100 WBC (Bld) 0.4 % Normal 0.2-2.0 The [facility] Comment on above: Performed By: #### C BC ####[facility] Hpdnjfkqpd[address] [place], [place] [address]Dr. Chrissy Frazier EO # 0.1 103/ul Normal 0.0-0.7 The [facility] Comment on above: Performed By: #### C BC ####[facility] Ttulpocaow2394[address] [place], [place] [address]Dr. Chrissy Frazier Eosinophils/100 WBC (Bld) 0.6 % Critically low 0.9-7.0 The [facility] Comment on above: Performed By: #### C BC ####[facility] Jisigttvog4154[address] [place], [place] [address]Dr. Chrissy Frazier Erythrocyte distribution width (RBC) [Ratio] 13.2 % Normal 11.0-15.0 [place] Comment on above: Performed By: #### C BC ####[facility] Apsjfirdqd1841 [place] [address]Dr. Chrissy Frazier Hematocrit (Bld) [Volume fraction] 48.3 % Normal 42.0-54.0 [place] Comment on above: Performed By: #### C BC ####[facility] Fgabbyisiv0372 [place] [address]Dr. Chrissy Frazier Hemoglobin (Bld) [Mass/Vol] 16.1 g/dL Normal 14.0-18.0 [place] Comment on above: Performed By: #### C BC ####[facility] Afrnjcammx6620[address] [place], [place] [address]Dr. Chrissy Frazier IG # 0.12 10e3/ul Critically high 0.00-0.03 [facility] Comment on above: Performed By: #### C BC ####[facility] Wyxdrzlcmr6440[address] [place], [place] [address]Dr. Tishrowan Frazier IG % 0.9 % Critically high 0.0-0.5 [facility] Comment on above: Performed By: #### C BC ####[facility] Jrgiwgbzsr6366[address] [place], [place] [address]Dr. Chrissy Freddie LYMPH # 3.0 103/ul Normal 1.2-3.8 [place] Comment on above: Performed By: #### C BC ####[facility] Rctmiefuqp335[address] [place], [place] [address]DrNancy Tishrowan Frazier Lymphocytes/100 WBC (Bld) 22.3 % Normal 20.5-60.0 [place] Comment on above: Performed By: #### C BC ####[facility] Ikqxjfmmsk4313[address] [place], [place] [address]Dr. Tishrowan Frazier MANUAL DIFF REQ NO Normal [facility] Comment on above: Performed By: #### C BC ####[facility] Pxyqibtbyz1899[address] [place], [place] [address]DrNancy Chrissy Freddie MCH (RBC) [Entitic mass] 28.6 pg Normal 25.9-34.0 [place] Comment on above: Performed By: #### C BC ####[facility] Vgrxdjtfjr7912 [place] [address]Dr. Tishrowan Frazier MCHC (RBC) [Mass/Vol] 33.3 g/dL Normal 29.9-35.2 The [facility] Comment on above: Performed By: #### C BC ####[facility] Fadqffwaml6899 [place] [address]Dr. Chrissy Frazier MCV (RBC) [Entitic vol] 85.9 fL Normal 80.0-94.0 The [facility] Comment on above: Performed By: #### C BC ####[facility] Sgygntapjm[address] [place], [place] [address]Dr. Chrissy Frazier MONO # 0.8 103/ul Normal 0.3-0.8 The [facility] Comment on above: Performed By: #### C BC ####[facility] Zlhphnuyzq938[address] [place], [place] [address]Dr. Chrissy Frazier Monocytes/100 WBC (Bld) 5.7 % Normal 1.7-12.0 The [facility] Comment on above: Performed By: #### C BC ####[facility] Liawcoaedz[address] [place], [place] [address]Dr. Chrissy Frazier NEUT # 9.3 103/ul Critically high 1.4-6.5 [facility] Comment on above: Performed By: #### C BC ####[facility] Othouadbhl48[address] [place], [place] [address]Dr. Chrissy Frazier Neutrophils/100 WBC (Bld) 70.1 % Normal 43.0-75.0 The [facility] Comment on above: Performed By: #### C BC ####[facility] Fuaqqkddwo49[address] [place], [place] [address]Dr. Chrissy Frazier Platelet mean volume (Bld) [Entitic vol] 10.3 fL Normal 9.5-13.5 The [facility] Comment on above: Performed By: #### C BC ####[facility] Fijdazuevq8340[address] [place], [place] [address]Dr. Chrissy Frazier PLT 461 103/ul Critically high 150-450 [facility] Comment on above: Performed By: #### C BC ####[facility] Fehoxyykvl9983 [place] [address]Dr. Tishrowan Freddie RBC 5.62 106/ul Normal 4.70-6.10 [place] Comment on above: Performed By: #### C BC ####[facility] Ysirmhyaeo3551 [place] [address]Dr. Chrissy Frazier WBC 13.3 103/ul Critically high 4.0-11.0 [facility] Comment on above: Performed By: #### C BC ####[facility] Asbkkdmpok9030 [place] [address]Dr. Chrissy Frazier LIPASEon 04-04-2022 Lipase [Catalytic activity/Vol] 118.0 U/L Normal 73.0-393.0 [place] Comment on above: Performed By: #### C MP, TERRENCE, LIPA ####[facility] Wlblewavyf3607 [place] [address]Dr. Chrissy Frazier PROF 14(COMP METB)on 022 Albumin [Mass/Vol] 4.3 g/dL Normal 3.4-5.0 [facility] Comment on above: Performed By: #### C MP, TERRENCE, LIPA ####[facility] Vkvhbjrwlo39[address] [place], [place] [address]Dr. Chrissy Frazier Albumin/Globulin [Mass ratio] 1.0 {ratio} Normal [place] Comment on above: Performed By: #### C MP, TERRENCE, LIPA ####[facility] Dimfkahwbr9137 [place] [address]Dr. Chrissy Frazier ALP [Catalytic activity/Vol] 84 U/L Normal 46-116 [facility] Comment on above: Performed By: #### C MP, TERRENCE, LIPA ####[facility] Kfdqjnqhus7000 [place] [address]Dr. Chrissy Frazier ALT [Catalytic activity/Vol] 81 U/L Critically high 16-63 [facility] Comment on above: Performed By: #### C MP, TERRENCE, LIPA ####[facility] Shwjwyttna[address] [place], [place] [address]Dr. Chrissy Frazier Anion gap [Moles/Vol] 17.9 mmol/L Normal [place] Comment on above: Performed By: #### C TERRENCE ADAIR, LIPA ####[facility] Qrvldlztqc2361 [place] [address]Dr. Chrissy Frazier AST [Catalytic activity/Vol] 25 U/L Normal 15-37 The [facility] Comment on above: Performed By: #### C MANA TERRENCE, LIPA ####[facility] Upfuacbifi5[address] [place], [place] [address]Dr. Chrissy Frazier Bilirubin [Mass/Vol] 0.5 mg/dL Normal 0.2-1.0 The [facility] Comment on above: Performed By: #### C TERRENCE ADAIR, LIPA ####[facility] Ehlirqrpap34[address] [place], [place] [address]Dr. Chrissy Frazier Calcium [Mass/Vol] 9.6 mg/dL Normal 8.5-10.1 [facility] Comment on above: Performed By: #### C MANA TERRENCE, LIPA ####[facility] Vliotzpavx4904[address] [place], [place] [address]Dr. Chrissy Frazier Chloride [Moles/Vol] 101 mmol/L Normal 98-107 [facility] Comment on above: Performed By: #### C MANA TERRENCE, LIPA ####[facility] Dbryejxdio5019[address] [place], [place] [address]Dr. Chrissy Frazier CO2 [Moles/Vol] 18.6 mmol/L Critically low 21.0-32.0 The [facility] Comment on above: Performed By: #### C MANA TERRENCE, LIPA ####[facility] Tjbmhqeopb[address] [place], [place] [address]Dr. Chrissy Frazier Creatinine [Mass/Vol] 1.39 mg/dL Critically high 0.70-1.30 [place] Comment on above: Performed By: #### C MP, TERRENCE, LIPA ####[facility] Jeodujmqua13[address] [place], [place] [address]Dr. Chrissy Frazier EGFR-AF CROATIAN >60 Normal >=60 [facility] Comment on above: Performed By: #### C MP, TERRENCE, LIPA ####[facility] Fqnuxldmoj6524 [place] [address]Dr. Chrissy Frazier EGFR-NON AF CROATIAN 59 mL/min/1.73m2 Critically low >=60 [place] Comment on above: Performed By: #### C MP, TERRENCE, LIPA ####[facility] Onzbkrrtfs0413 [place] [address]Dr. Chrissy Frazier Globulin (S) [Mass/Vol] 4.3 g/dL Normal [place] Comment on above: Performed By: #### C MP, TERRENCE, LIPA ####[facility] Fxzaoswoho9446 [place] [address]Dr. Chrissy Frazier Glucose [Mass/Vol] 132 mg/dL Critically high 74-106 [facility] Comment on above: Performed By: #### C MP, TERRENCE, LIPA ####[facility] Cbjuqljijz22[address] [place], [place] [address]Dr. Chrissy Frazier Potassium [Moles/Vol] 3.5 mmol/L Normal 3.5-5.1 [place] Comment on above: Performed By: #### C MP, TERRENCE, LIPA ####[facility] Qpfmboxwvy8337[address] [place], [place] [address]Dr. Chrissy Frazier Protein [Mass/Vol] 8.6 g/dL Critically high 6.4-8.2 [facility] Comment on above: Performed By: #### C MP, TERRENCE, LIPA ####[facility] Yszpnpmqst9901 [place] [address]Dr. Chrissy Frazier Sodium [Moles/Vol] 134 mmol/L Critically low 136-145 [facility] Comment on above: Performed By: #### C MP, TERRENCE, LIPA ####[facility] Ergpfwgaev5843 [place] [address]Dr. Chrissy Frazier Urea nitrogen [Mass/Vol] 8.0 mg/dL Normal 7.0-18.0 [place] Comment on above: Performed By: #### C MP, TERRENCE, LIPA ####[facility] Exelrcckhi[address] [place], [place] [address]Dr. Chrissy Frazier Urea nitrogen/Creatinine [Mass ratio] 5.8 mg/mg Normal The [facility] Comment on above: Performed By: #### C TERRENCE ADAIR LIPA ####[facility] Hkjklpzujt7099 [place] [address]Dr. Chrissy Frazier XR ABD FLAT UP_PA Enoch 04-04 XR ABD FLAT UP_PA CH Normal The [facility] AMMONIAon 03-31-2022 Ammonia (P) [Moles/Vol] 19 umol/L Normal 11-32 [facility] Comment on above: Performed By: #### A MM ####[facility] Syvupznpvr[address] [place], [place] [address]Dr. Chrissy Frazier CBC AUTO DIFFon 03-31-2022 BASO # 0.1 103/ul Normal 0.0-0.1 [facility] Comment on above: Performed By: #### C BC ####[facility] Ujpcqlkdyw[address] [place], [place] [address]Dr. Chrissy Frazier Basophils/100 WBC (Bld) 0.5 % Normal 0.2-2.0 [facility] Comment on above: Performed By: #### C BC ####[facility] Nvcgahfzhm[address] [place], [place] [address]DrNancy Frazier EO # 0.2 103/ul Normal 0.0-0.7 [facility] Comment on above: Performed By: #### C BC ####[facility] Mwqnnukilp[address] [place], [place] [address]Dr. Chrissy Frazier Eosinophils/100 WBC (Bld) 1.6 % Normal 0.9-7.0 [facility] Comment on above: Performed By: #### C BC ####[facility] Anagfpjurj9[address] [place], [place] [address]Dr. Chrissy Frazier Erythrocyte distribution width (RBC) [Ratio] 13.2 % Normal 11.0-15.0 [facility] Comment on above: Performed By: #### C BC ####[facility] Kwbpgokhdu6[address] [place], [place] [address]Dr. Chrissy Frazier Hematocrit (Bld) [Volume fraction] 42.1 % Normal 42.0-54.0 [facility] Comment on above: Performed By: #### C BC ####[facility] Mewzbjyver9827 [place] [address]Dr. Chrissy Frazier Hemoglobin (Bld) [Mass/Vol] 14.3 g/dL Normal 14.0-18.0 [place] Comment on above: Performed By: #### C BC ####[facility] Hjcoqptcwc[address] [place], [place] [address]Dr. Chrissy Frazier IG # 0.05 10e3/ul Critically high 0.00-0.03 [facility] Comment on above: Performed By: #### C BC ####[facility] Pftloxwkap[address] [place], [place] [address]Dr. Chrissy Frazier IG % 0.5 % Normal 0.0-0.5 [place] Comment on above: Performed By: #### C BC ####[facility] Ehmxmtzcio[address] [place], [place] [address]Dr. Chrissy Frazier LYMPH # 2.9 103/ul Normal 1.2-3.8 [facility] Comment on above: Performed By: #### C BC ####[facility] Vjkpvdmquj9[address] [place], [place] [address]Dr. Chrissy Frazier Lymphocytes/100 WBC (Bld) 25.7 % Normal 20.5-60.0 [place] Comment on above: Performed By: #### C BC ####[facility] Qytnbcesms78[address] [place], [place] [address]Dr. Chrissy Frazier MANUAL DIFF REQ NO Normal [facility] Comment on above: Performed By: #### C BC ####[facility] Ehbmyrmzqz275[address] [place], [place] [address]Dr. Chrissy Frazier MCH (RBC) [Entitic mass] 29.2 pg Normal 25.9-34.0 The [facility] Comment on above: Performed By: #### C BC ####[facility] Kikosvbyok78[address] [place], [place] [address]Dr. Chrissy Frazier MCHC (RBC) [Mass/Vol] 34.0 g/dL Normal 29.9-35.2 The [facility] Comment on above: Performed By: #### C BC ####[facility] Rtgvrnodtn[address] [place] [address]DrNancy Frazier MCV (RBC) [Entitic vol] 85.9 fL Normal 80.0-94.0 The [facility] Comment on above: Performed By: #### C BC ####[facility] Gasduagswr[address] [place], [place] [address]DrNancy Frazier MONO # 1.0 103/ul Critically high 0.3-0.8 [facility] Comment on above: Performed By: #### C BC ####[facility] Pcgjntzcgo7866[address] [place], [place] [address]DrNancy Frazier Monocytes/100 WBC (Bld) 8.6 % Normal 1.7-12.0 The [facility] Comment on above: Performed By: #### C BC ####[facility] Hvxgihdbit8044[address] [place], [place] [address]DrNancy Frazier NEUT # 7.0 103/ul Critically high 1.4-6.5 [facility] Comment on above: Performed By: #### C BC ####[facility] Mzdkorpypz0896[address] [place], [place] [address]DrNancy Frazier Neutrophils/100 WBC (Bld) 63.1 % Normal 43.0-75.0 The [facility] Comment on above: Performed By: #### C BC ####[facility] Mshrumzmdf9598[address] [place], [place] [address]DrNancy Frazier Platelet mean volume (Bld) [Entitic vol] 10.4 fL Normal 9.5-13.5 The [facility] Comment on above: Performed By: #### C BC ####[facility] Ebirisnspu36[address] [place], [place] [address]DrNancy Frazier PLT 308 103/ul Normal 150-450 The [facility] Comment on above: Performed By: #### C BC ####[facility] Ddhwoqbhdv3870[address] [place], [place] [address]DrNancy Frazier RBC 4.90 106/ul Normal 4.70-6.10 The [facility] Comment on above: Performed By: #### C BC ####[facility] Npeiraecmw44[address] [place] [id number]. Chrissy Frazier WBC 11.1 103/ul Critically high 4.0-11.0 The [facility] Comment on above: Performed By: #### C BC ####[facility] Ebdmlowrkf64[address] [place] [address]DrNancy Frazier PROF 14(COMP METB)on 022 Albumin [Mass/Vol] 3.5 g/dL Normal 3.4-5.0 [facility] Comment on above: Performed By: #### C MP ####[facility] Foipdsvleu4789[address] [place], [place] [address]DrNancy Frazier Albumin/Globulin [Mass ratio] 0.9 {ratio} Normal [place] Comment on above: Performed By: #### C MP ####[facility] Vrkmxrhydw028[address] [place], [place] [address]Dr. Chrissy Frazier ALP [Catalytic activity/Vol] 68 U/L Normal 46-116 The [facility] Comment on above: Performed By: #### C MP ####[facility] Fobmynrbqa0301[address] [place], [place] [address]DrNancy Frazier ALT [Catalytic activity/Vol] 113 U/L Critically high 16-63 The [facility] Comment on above: Performed By: #### C MP ####[facility] Bvylaltpsa179[address] [place], [place] [address]DrNancy Frazier Anion gap [Moles/Vol] 14.0 mmol/L Normal [place] Comment on above: Performed By: #### C MP ####[facility] Reejevfqfv7029[address] [place], [place] [address]DrNancy Frazier AST [Catalytic activity/Vol] 31 U/L Normal 15-37 [place] Comment on above: Performed By: #### C MP ####[facility] Ydjicixnog013[address] [place], [place] [address]DrNancy Frazier Bilirubin [Mass/Vol] 0.6 mg/dL Normal 0.2-1.0 [place] Comment on above: Performed By: #### C MP ####[facility] Sgqkdtfkyx[address] [place] [address]Dr. Chrissy Frazier Calcium [Mass/Vol] 8.4 mg/dL Critically low 8.5-10.1 Th e [facility] Comment on above: Performed By: #### C MP ####[facility] Updpvkbsos[address] [place] [address]Dr. Chrissy Frazier Chloride [Moles/Vol] 101 mmol/L Normal 98-107 [place] Comment on above: Performed By: #### C MP ####[facility] Mxgwkcsvoa3766[address] [place], [place] [address]Dr. Chrissy Frazier CO2 [Moles/Vol] 24.2 mmol/L Normal 21.0-32.0 The [facility] Comment on above: Performed By: #### C MP ####[facility] Cyogpyzqpt2898[address] [place], [place] [address]Dr. Chrissy Freddie Creatinine [Mass/Vol] 1.15 mg/dL Normal 0.70-1.30 [place] Comment on above: Performed By: #### C MP ####[facility] Hwryzbjqxw3080[address] [place], [place] [address]Dr. Chrissy Freddie EGFR-AF CROATIAN >60 Normal >=60 The [facility] Comment on above: Performed By: #### C MP ####[facility] Bqptbzrymp7[address] [place] [address]Dr. Tishrowan Freddie EGFR-NON AF CROATIAN >60 Normal >=60 [place] Comment on above: Performed By: #### C MP ####[facility] Ldvyqkcdhn5256 [place] [address]Dr. Chrissy Frazier Globulin (S) [Mass/Vol] 3.8 g/dL Normal [place] Comment on above: Performed By: #### C MP ####[facility] Ajhougoxoe5584[address] [place], [place] [address]Dr. Chrissy Frazier Glucose [Mass/Vol] 100 mg/dL Normal 74-106 [facility] Comment on above: Performed By: #### C MP ####[facility] Tbdkqvlkhz216[address] [place] [address]Dr. Chrissy Freddie Potassium [Moles/Vol] 3.2 mmol/L Critically low 3.5-5.1 [place] Comment on above: Performed By: #### C MP ####[facility] Mdazcutxbe8798[address] [place], [place] [address]Dr. Chrissy Frazier Protein [Mass/Vol] 7.3 g/dL Normal 6.4-8.2 [facility] Comment on above: Performed By: #### C MP ####[facility] Xwzixpbpaq0527[address] [place], [place] [address]Dr. Chrissy Frazier Sodium [Moles/Vol] 136 mmol/L Normal 136-145 [facility] Comment on above: Performed By: #### C MP ####[facility] Ndvfeuueip4398[address] [place], [place] [address]Dr. Chrissy Frazier Urea nitrogen [Mass/Vol] 13.0 mg/dL Normal 7.0-18.0 [place] Comment on above: Performed By: #### C MP ####[facility] Samngnylsn0559[address] [place], [place] [address]Dr. Chrissy Frazier Urea nitrogen/Creatinine [Mass ratio] 11.3 mg/mg Normal [place] Comment on above: Performed By: #### C MP ####[facility] Uodlvrygtx5724[address] [place], [place] [address]Dr. Chrissy Frazier AMMONIAon 03-30-2022 Ammonia (P) [Mass/Vol] ug/dL Critically low 11-32 [place] Comment on above: Performed By: #### A MM ####[facility] Fopzgmrkqh9124[address] [place], [place] [address]Dr. Chrissy Frazier CBC AUTO DIFFon 03-30-2022 BASO # 0.1 103/ul Normal 0.0-0.1 [place] Comment on above: Performed By: #### C BC ####[facility] Gbkvqxitxx27[address] [place], [place] [address]Dr. Chrissy Frazier Basophils/100 WBC (Bld) 0.5 % Normal 0.2-2.0 [place] Comment on above: Performed By: #### C BC ####[facility] Fokropqphz1967[address] [place], [place] [address]Dr. Crhissy Frazier EO # 0.1 103/ul Normal 0.0-0.7 [place] Comment on above: Performed By: #### C BC ####[facility] Curofkobdp433[address] [place], [place] [address]Dr. Chrissy Frazier Eosinophils/100 WBC (Bld) 1.1 % Normal 0.9-7.0 [place] Comment on above: Performed By: #### C BC ####[facility] Sxcsvwmcpc0601[address] [place], [place] [address]Dr. Chrissy Frazier Erythrocyte distribution width (RBC) [Ratio] 13.4 % Normal 11.0-15.0 [place] Comment on above: Performed By: #### C BC ####[facility] Xitncudvtl018[address] [place], [place] [address]Dr. Chrissy Frazier Hematocrit (Bld) [Volume fraction] 45.8 % Normal 42.0-54.0 [place] Comment on above: Performed By: #### C BC ####[facility] Vmawlitsse9580[address] [place], [place] [address]Dr. Chrissy Frazier Hemoglobin (Bld) [Mass/Vol] 14.9 g/dL Normal 14.0-18.0 [place] Comment on above: Performed By: #### C BC ####[facility] Rendelptch1812[address] [place], [place] [address]Dr. Chrissy Frazier IG # 0.05 10e3/ul Critically high 0.00-0.03 [facility] Comment on above: Performed By: #### C BC ####[facility] Hajjdxjhpl283[address] [place], [place] [address]Dr. Chrissy Frazier IG % 0.5 % Normal 0.0-0.5 [place] Comment on above: Performed By: #### C BC ####[facility] Mjccopddmw7726[address] [place], [place] [address]DrNancy Frazier LYMPH # 3.0 103/ul Normal 1.2-3.8 The [facility] Comment on above: Performed By: #### C BC ####[facility] Pywyaarqge34[address] [place] [address]DrNancy Frazier Lymphocytes/100 WBC (Bld) 30.2 % Normal 20.5-60.0 The [facility] Comment on above: Performed By: #### C BC ####[facility] Rzpbhjzqid2487[address] [place], [place] [address]DrNancy Frazier MANUAL DIFF REQ NO Normal [facility] Comment on above: Performed By: #### C BC ####[facility] Yafyanaabx[address] [place] [address]DrNancy Frazier MCH (RBC) [Entitic mass] 28.4 pg Normal 25.9-34.0 The [facility] Comment on above: Performed By: #### C BC ####[facility] Vzlmjbgthh3906[address] [place], [place] [address]DrNancy Frazier MCHC (RBC) [Mass/Vol] 32.5 g/dL Normal 29.9-35.2 The [facility] Comment on above: Performed By: #### C BC ####[facility] Hbvkohqdha9605[address] [place], [place] [address]DrNancy Frazier MCV (RBC) [Entitic vol] 87.4 fL Normal 80.0-94.0 The [facility] Comment on above: Performed By: #### C BC ####[facility] Wetequwovn971[address] [place], [place] [address]DrNancy Frazier MONO # 0.8 103/ul Normal 0.3-0.8 The [facility] Comment on above: Performed By: #### C BC ####[facility] Lvlpsmwslw612[address] [place], [place] [address]DrNancy Frazier Monocytes/100 WBC (Bld) 7.9 % Normal 1.7-12.0 The [facility] Comment on above: Performed By: #### C BC ####[facility] Gyttxqbvdk058[address] [place], [place] [address]DrNancy Frazier NEUT # 5.9 103/ul Normal 1.4-6.5 [place] Comment on above: Performed By: #### C BC ####[facility] Emdjdqsimd9648 [place] [address]Dr. Chrissy Frazier Neutrophils/100 WBC (Bld) 59.8 % Normal 43.0-75.0 [place] Comment on above: Performed By: #### C BC ####[facility] Ilvpntbhkg714[address] [place], [place] [address]Dr. Chrissy Frazier Platelet mean volume (Bld) [Entitic vol] 10.1 fL Normal 9.5-13.5 The [facility] Comment on above: Performed By: #### C BC ####[facility] Bavwkjqizq926[address] [place], [place] [address]Dr. Chrissy Frazier PLT 320 103/ul Normal 150-450 [place] Comment on above: Performed By: #### C BC ####[facility] Erauwbvltq2626[address] [place], [place] [address]Dr. Chrissy Frazier RBC 5.24 106/ul Normal 4.70-6.10 The [facility] Comment on above: Performed By: #### C BC ####[facility] Htryznyudd5807[address] [place], [place] [address]Dr. Chrissy Frazier WBC 9.9 103/ul Normal 4.0-11.0 [place] Comment on above: Performed By: #### C BC ####[facility] Xdtfxlvgcj5408[address] [place], [place] [address]Dr. Chrissy Frazier PROF 14(COMP METB)on 022 Albumin [Mass/Vol] 3.9 g/dL Normal 3.4-5.0 [facility] Comment on above: Performed By: #### C MP ####[facility] Tdambfmrlk404[address] [place], [place] [address]DrNancy Frazier Albumin/Globulin [Mass ratio] 1.1 {ratio} Normal [place] Comment on above: Performed By: #### C MP ####[facility] Phqcxuxzto4070[address] [place], [place] [address]Dr. Chrissy Frazier ALP [Catalytic activity/Vol] 88 U/L Normal 46-116 [place] Comment on above: Performed By: #### C MP ####[facility] Rfqlahccdz024[address] [place] [address]Dr. Chrissy Frazier ALT [Catalytic activity/Vol] 161 U/L Critically high 16-63 [place] Comment on above: Performed By: #### C MP ####[facility] Upnffmaafl33[address] [place] [address]Dr. Chrissy Frazier Anion gap [Moles/Vol] 12.3 mmol/L Normal [place] Comment on above: Performed By: #### C MP ####[facility] Mjbywaoett933[address] [place], [place] [address]Dr. Chrissy Frazier AST [Catalytic activity/Vol] 64 U/L Critically high 15-37 [place] Comment on above: Performed By: #### C MP ####[facility] Lwoscdjirb6540[address] [place], [place] [address]Dr. Chrissy Frazier Bilirubin [Mass/Vol] 0.8 mg/dL Normal 0.2-1.0 [place] Comment on above: Performed By: #### C MP ####[facility] Rqsqtzabzc1665[address] [place], [place] [address]Dr. Chrissy Frazier Calcium [Mass/Vol] 8.4 mg/dL Critically low 8.5-10.1 Th [facility] Comment on above: Performed By: #### C MP ####[facility] Srzgkatcsa8918[address] [place], [place] [address]Dr. Chrissy Frazier Chloride [Moles/Vol] 103 mmol/L Normal 98-107 The [facility] Comment on above: Performed By: #### C MP ####[facility] Jximkmikrb1207[address] [place], [place] [address]Dr. Chrissy Frazier CO2 [Moles/Vol] 26.5 mmol/L Normal 21.0-32.0 The [facility] Comment on above: Performed By: #### C MP ####[facility] Mleygilcwz2247[address] [place], [place] [address]Dr. Chrissy Freddie Creatinine [Mass/Vol] 1.24 mg/dL Normal 0.70-1.30 [place] Comment on above: Performed By: #### C MP ####[facility] Phgwcqqbnq84[address] [place] [address]Dr. Chrissy Frazier EGFR-AF CROATIAN >60 Normal >=60 [facility] Comment on above: Performed By: #### C MP ####[facility] Fhkfbgorlm3229 [place] [address]Dr. Chrissy Freddie EGFR-NON AF CROATIAN >60 Normal >=60 [place] Comment on above: Performed By: #### C MP ####[facility] Gkaihjmxvf0991 [place] [address]Dr. Chrissy Freddie Globulin (S) [Mass/Vol] 3.7 g/dL Normal [place] Comment on above: Performed By: #### C MP ####[facility] Jrrpmnlvbo53[address] [place] [address]Dr. Tishrowan Freddie Glucose [Mass/Vol] 108 mg/dL Critically high 74-106 [facility] Comment on above: Performed By: #### C MP ####[facility] Blwymnsati5035 [place] [address]Dr. Chrissy Freddie Potassium [Moles/Vol] 3.8 mmol/L Normal 3.5-5.1 [place] Comment on above: Performed By: #### C MP ####[facility] Ezccifgeoa9880 [place] [address]Dr. Chrissy Freddie Protein [Mass/Vol] 7.6 g/dL Normal 6.4-8.2 The [facility] Comment on above: Performed By: #### C MP ####[facility] Zuzxujykuj2803 [place] [address]Dr. Tishrowan Frazier Sodium [Moles/Vol] 138 mmol/L Normal 136-145 [facility] Comment on above: Performed By: #### C MP ####[facility] Ohtydnaodp4076 [place] [address]Dr. Chrissy Frazier Urea nitrogen [Mass/Vol] 12.0 mg/dL Normal 7.0-18.0 [place] Comment on above: Performed By: #### C MP ####[facility] Gzzchzflao9096[address] [place], [place] [address]Dr. Chrissy Frazier Urea nitrogen/Creatinine [Mass ratio] 9.7 mg/mg Normal The [facility] Comment on above: Performed By: #### C MP ####[facility] Puzotawmsz34[address] [place] [address]Dr. Chrissy Frazier AMMONIAon 03-29-2022 Ammonia (P) [Moles/Vol] 27 umol/L Normal 11-32 The [facility] Comment on above: Performed By: #### A MM ####[facility] Esfbthpxnn6609[address] [place], [place] [address]Dr. Chrissy Frazier AMYLASEon 03-29-2022 Amylase [Catalytic activity/Vol] 29 U/L Normal 25-115 The [facility] Comment on above: Performed By: #### L IPA, TERRENCE ####[facility] Bkjmskvdcg4996[address] [place], [place] [address]Dr. Chrissy Frazier CBC AUTO DIFFon 03-29-2022 BASO # 0.0 103/ul Normal 0.0-0.1 The [facility] Comment on above: Performed By: #### C BC ####[facility] Jscveprgiv6946[address] [place], [place] [address]Dr. Chrissy Freddie Basophils/100 WBC (Bld) 0.2 % Normal 0.2-2.0 The [facility] Comment on above: Performed By: #### C BC ####[facility] Jdsplkvise06[address] [place], [place] [address]Dr. Chrissy Frazier EO # 0.0 103/ul Normal 0.0-0.7 The [facility] Comment on above: Performed By: #### C BC ####[facility] Hpbhpoghnz6455[address] [place], [place] [address]Dr. Chrissy Freddie Eosinophils/100 WBC (Bld) 0.4 % Critically low 0.9-7.0 The [facility] Comment on above: Performed By: #### C BC ####[facility] Xttgyqztwn705[address] [place], [place] [address]Dr. Chrissy Frazier Erythrocyte distribution width (RBC) [Ratio] 13.6 % Normal 11.0-15.0 [place] Comment on above: Performed By: #### C BC ####[facility] Rdpuybymjy4573 [place] [address]Dr. Chrissy Frazier Hematocrit (Bld) [Volume fraction] 45.2 % Normal 42.0-54.0 [place] Comment on above: Performed By: #### C BC ####[facility] Jkxtzkhoff2780[address] [place], [place] [address]Dr. Chrissy Frazier Hemoglobin (Bld) [Mass/Vol] 14.8 g/dL Normal 14.0-18.0 The [facility] Comment on above: Performed By: #### C BC ####[facility] Kvhgdvypvr3785[address] [place], [place] [address]Dr. Chrissy Frazier IG # 0.03 10e3/ul Normal 0.00-0.03 [place] Comment on above: Performed By: #### C BC ####[facility] Sacfrpcamy7740[address] [place], [place] [address]Dr. Tishrowan Frazier IG % 0.3 % Normal 0.0-0.5 [place] Comment on above: Performed By: #### C BC ####[facility] Xiyzbxkfuf3429[address] [place], [place] [address]Dr. Chrissy Frazier LYMPH # 2.0 103/ul Normal 1.2-3.8 The [facility] Comment on above: Performed By: #### C BC ####[facility] Cpdwunmltc3466[address] [place], [place] [address]Dr. Chrissy Frazier Lymphocytes/100 WBC (Bld) 18.3 % Critically low 20.5-60.0 The [facility] Comment on above: Performed By: #### C BC ####[facility] Kamthjzwbu8846[address] [place], [place] [address]Dr. Chrissy Frazier MANUAL DIFF REQ NO Normal [facility] Comment on above: Performed By: #### C BC ####[facility] Xdrnxguxag644[address] [place], [place] [address]Dr. Chrissy Frazier MCH (RBC) [Entitic mass] 28.5 pg Normal 25.9-34.0 [place] Comment on above: Performed By: #### C BC ####[facility] Shzpfjeajb4421 [place] [address]DrNancy Frazier MCHC (RBC) [Mass/Vol] 32.7 g/dL Normal 29.9-35.2 The [facility] Comment on above: Performed By: #### C BC ####[facility] Wnznujrkhi9764 [place] [address]DrNancy Frazier MCV (RBC) [Entitic vol] 87.1 fL Normal 80.0-94.0 The [facility] Comment on above: Performed By: #### C BC ####[facility] Lzeikzoijj1188[address] [place], [place] [address]DrNancy Frazier MONO # 0.9 103/ul Critically high 0.3-0.8 [facility] Comment on above: Performed By: #### C BC ####[facility] Toqbpbywak99022[address] [place], [place] [address]DrNancy Frazier Monocytes/100 WBC (Bld) 8.6 % Normal 1.7-12.0 The [facility] Comment on above: Performed By: #### C BC ####[facility] Ofxbukhgyc6677[address] [place], [place] [address]DrNancy Frazier NEUT # 7.8 103/ul Critically high 1.4-6.5 [facility] Comment on above: Performed By: #### C BC ####[facility] Evekptiywk108[address] [place], [place] [address]DrNancy Frazier Neutrophils/100 WBC (Bld) 72.2 % Normal 43.0-75.0 The [facility] Comment on above: Performed By: #### C BC ####[facility] Ldzagglrap1678[address] [place], [place] [address]DrNancy Frazier Platelet mean volume (Bld) [Entitic vol] 10.1 fL Normal 9.5-13.5 The [facility] Comment on above: Performed By: #### C BC ####[facility] Enupbhzwnj936[address] [place], [place] [address]Dr. Chrissy Frazier PLT 329 103/ul Normal 150-450 The [facility] Comment on above: Performed By: #### C BC ####[facility] Bitmnriihq9649 [place] [address]Dr. Chrissy Frazier RBC 5.19 106/ul Normal 4.70-6.10 [place] Comment on above: Performed By: #### C BC ####[facility] Ngdirtrobz7654 [place] [address]Dr. Chrissy Frazier WBC 10.8 103/ul Normal 4.0-11.0 The [facility] Comment on above: Performed By: #### C BC ####[facility] Kzarmbwawx0299 [place] [address]Dr. Chrissy Freddie LIPASEon 03-29-2022 Lipase [Catalytic activity/Vol] 58.0 U/L Critically low 73.0-393.0 [place] Comment on above: Performed By: #### L TERRENCE VICTORIA ####[facility] Ivohvblbod5114[address] [place], [place] [address]Dr. Chrissy Freddie NM HEPATOBILIARY SCAN W EFon 03-29-2022 NM HEPATOBILIARY SCAN W EF Normal The [facility] PROF 14(COMP METB)on 022 Albumin [Mass/Vol] 3.8 g/dL Normal 3.4-5.0 [facility] Comment on above: Performed By: #### C MP ####[facility] Svlvrjssyo1397 [place] [address]DrNancy Winstonrowan Freddie Albumin/Globulin [Mass ratio] 1.0 {ratio} Normal [place] Comment on above: Performed By: #### C MP ####[facility] Mwcateaxzg9673 [place] [address]Dr. Chrissy Frazier ALP [Catalytic activity/Vol] 69 U/L Normal 46-116 The [facility] Comment on above: Performed By: #### C MP ####[facility] Ivofuscjmt4761 [place] [address]Dr. Chrissy Frazier ALT [Catalytic activity/Vol] 117 U/L Critically high 16-63 [place] Comment on above: Performed By: #### C MP ####[facility] Lodhbnztoq1780 [place] [address]Dr. Chrissy Frazier Anion gap [Moles/Vol] 16.7 mmol/L Normal [place] Comment on above: Performed By: #### C MP ####[facility] Ncqpfcehqh20[address] [place], [place] [address]Dr. Chrissy Frazier AST [Catalytic activity/Vol] 77 U/L Critically high 15-37 [place] Comment on above: Performed By: #### C MP ####[facility] Egpwsmsrno5[address] [place], [place] [address]Dr. Chrissy Frazier Bilirubin [Mass/Vol] 1.5 mg/dL Critically high 0.2-1.0 [place] Comment on above: Performed By: #### C MP ####[facility] Ycoymmqkyw32[address] [place], [place] [address]Dr. Chrissy Frazier Calcium [Mass/Vol] 8.1 mg/dL Critically low 8.5-10.1 Th [facility] Comment on above: Performed By: #### C MP ####[facility] Lrcaupkxqa060[address] [place], [place] [address]Dr. Chrissy Freddie Chloride [Moles/Vol] 101 mmol/L Normal 98-107 [place] Comment on above: Performed By: #### C MP ####[facility] Pzufpqpyne[address] [place], [place] [address]Dr. Chrissy Frazier CO2 [Moles/Vol] 24.5 mmol/L Normal 21.0-32.0 The [facility] Comment on above: Performed By: #### C MP ####[facility] Wvpzduiauu6[address] [place], [place] [address]Dr. Chrissy Frazier Creatinine [Mass/Vol] 1.17 mg/dL Normal 0.70-1.30 The [facility] Comment on above: Performed By: #### C MP ####[facility] Dyhrrimjkj57[address] [place], [place] [address]Dr. Chrissy Freddie EGFR-AF CROATIAN >60 Normal >=60 The [facility] Comment on above: Performed By: #### C MP ####[facility] Gjivtwommk2321 [place] [id number]. Chrissy Frazier EGFR-NON AF CROATIAN >60 Normal >=60 The [facility] Comment on above: Performed By: #### C MP ####[facility] Vvcjidzvjm3517 [place] [id number]. Chrissy Frazier Globulin (S) [Mass/Vol] 3.9 g/dL Normal The [facility] Comment on above: Performed By: #### C MP ####[facility] Guqtjmarkx77[address] [place] [address]Dr. Chrissy Frazier Glucose [Mass/Vol] 104 mg/dL Normal 74-106 The [facility] Comment on above: Performed By: #### C MP ####[facility] Wtkhmqcylg3440 [place] [address]Dr. Chrissy Frazier Potassium [Moles/Vol] 3.2 mmol/L Critically low 3.5-5.1 The [facility] Comment on above: Performed By: #### C MP ####[facility] Janalwvqna3[address] [place], [place] [address]Dr. Chrissy Frazier Protein [Mass/Vol] 7.7 g/dL Normal 6.4-8.2 The [facility] Comment on above: Performed By: #### C MP ####[facility] Kxfdexszud5635[address] [place], [place] [address]Dr. Chrissy Frazier Sodium [Moles/Vol] 139 mmol/L Normal 136-145 The [facility] Comment on above: Performed By: #### C MP ####[facility] Ykykgzawqr6471 [place] [address]Dr. Chrissy Frazier Urea nitrogen [Mass/Vol] 11.0 mg/dL Normal 7.0-18.0 The [facility] Comment on above: Performed By: #### C MP ####[facility] Xamarlbeyu27[address] [place] [address]Dr. Chrissy Frazier Urea nitrogen/Creatinine [Mass ratio] 9.4 mg/mg Normal The [facility] Comment on above: Performed By: #### C MP ####[facility] Yqgaxezjum2149 [place] [address]DrNancy Frazier US SINGLE QUAD RT UPPERon US SINGLE QUAD RT UPPER Normal The [facility] AMMONIAon 03-28-2022 Ammonia (P) [Moles/Vol] 12 umol/L Normal 11-32 The [facility] Comment on above: Performed By: #### A MM ####[facility] Kjmqgqwert[address] [place], [place] [address]Dr. Chrissy Frazier CBC AUTO DIFFon 03-28-2022 BASO # 0.0 103/ul Normal 0.0-0.1 The [facility] Comment on above: Performed By: #### C BC ####[facility] Lxkhvjkews8059[address] [place], [place] [address]DrNancy Frazier Basophils/100 WBC (Bld) 0.1 % Critically low 0.2-2.0 The [facility] Comment on above: Performed By: #### C BC ####[facility] Srnpxucoye[address] [place], [place] [address]DrNancy Frazier EO # 0.0 103/ul Normal 0.0-0.7 The [facility] Comment on above: Performed By: #### C BC ####[facility] Prrvooeeow[address] [place], [place] [address]DrNancy Frazier Eosinophils/100 WBC (Bld) 0.0 % Critically low 0.9-7.0 The [facility] Comment on above: Performed By: #### C BC ####[facility] Rurgahoqpn213[address] [place], [place] [address]DrNancy Frazier Erythrocyte distribution width (RBC) [Ratio] 14.0 % Normal 11.0-15.0 The [facility] Comment on above: Performed By: #### C BC ####[facility] Ziuwfqgory5367[address] [place], [place] [address]DrNancy Frazier Hematocrit (Bld) [Volume fraction] 44.2 % Normal 42.0-54.0 [place] Comment on above: Performed By: #### C BC ####[facility] Rvwxxezihz5206[address] [place], [place] [address]DrNancy Frazier Hemoglobin (Bld) [Mass/Vol] 14.7 g/dL Normal 14.0-18.0 The [facility] Comment on above: Performed By: #### C BC ####[facility] Xzzgcodzor3408 [place] [address]DrNancy Frazier IG # 0.10 10e3/ul Critically high 0.00-0.03 [facility] Comment on above: Performed By: #### C BC ####[facility] Cthfthwhhn6769 [place] [address]DrNancy Frazier IG % 0.5 % Normal 0.0-0.5 [place] Comment on above: Performed By: #### C BC ####[facility] Zfkdpwuqtf05[address] [place], [place] [address]DrNancy Frazier LYMPH # 2.6 103/ul Normal 1.2-3.8 The [facility] Comment on above: Performed By: #### C BC ####[facility] Vkrpwidgma1726[address] [place], [place] [address]DrNancy Frazier Lymphocytes/100 WBC (Bld) 13.8 % Critically low 20.5-60.0 [place] Comment on above: Performed By: #### C BC ####[facility] Kytnwvmsqn4549[address] [place], [place] [address]DrNancy Frazier MANUAL DIFF REQ NO Normal The [facility] Comment on above: Performed By: #### C BC ####[facility] Qvlpujaidz9589[address] [place], [place] [address]DrNancy Frazier MCH (RBC) [Entitic mass] 29.0 pg Normal 25.9-34.0 The [facility] Comment on above: Performed By: #### C BC ####[facility] Nxpnrwigkj8386[address] [place], [place] [address]DrNancy Frazier MCHC (RBC) [Mass/Vol] 33.3 g/dL Normal 29.9-35.2 The [facility] Comment on above: Performed By: #### C BC ####[facility] Kkcigjzpxa2516[address] [place], [place] [address]Dr. Chrissy Frazier MCV (RBC) [Entitic vol] 87.2 fL Normal 80.0-94.0 The [facility] Comment on above: Performed By: #### C BC ####[facility] Hmwsmkoexq6544 [place] [id number]. Winstonrowan Frazier MONO # 1.1 103/ul Critically high 0.3-0.8 The [facility] Comment on above: Performed By: #### C BC ####[facility] Rlshfmvzaa8386 [place] [address]DrNancy Frazier Monocytes/100 WBC (Bld) 5.9 % Normal 1.7-12.0 The [facility] Comment on above: Performed By: #### C BC ####[facility] Uodeyomyvi9458[address] [place], [place] [address]DrNancy Winstonrowan Frazier NEUT # 15.1 103/ul Critically high 1.4-6.5 The [facility] Comment on above: Performed By: #### C BC ####[facility] Srkfpmvbto928[address] [place], [place] [address]DrNancy Frazier Neutrophils/100 WBC (Bld) 79.7 % Critically high 43.0-75.0 The [facility] Comment on above: Performed By: #### C BC ####[facility] Uglxnazjvx2298[address] [place], [place] [address]DrNancy Frazier Platelet mean volume (Bld) [Entitic vol] 10.3 fL Normal 9.5-13.5 The [facility] Comment on above: Performed By: #### C BC ####[facility] Dswdsibevi6274[address] [place], [place] [address]DrNnacy Frazier PLT 358 103/ul Normal 150-450 The [facility] Comment on above: Performed By: #### C BC ####[facility] Zhoopiscmv[address] [place], [place] [address]DrNancy Frazier RBC 5.07 106/ul Normal 4.70-6.10 The [facility] Comment on above: Performed By: #### C BC ####[facility] Keiuqqoilb8960[address] [place], [place] [address]DrNancy Frazier WBC 18.9 103/ul Critically high 4.0-11.0 The [facility] Comment on above: Performed By: #### C BC ####[facility] Qbhxpvbhcn3367[address] [place], [place] [address]Dr. Chrissy Frazier PROF 14(COMP METB)on 022 Albumin [Mass/Vol] 3.9 g/dL Normal 3.4-5.0 The [facility] Comment on above: Performed By: #### C MP ####[facility] Aoulaxcbsx0917[address] [place], [place] [address]Dr. Chrissy Frazier Albumin/Globulin [Mass ratio] 1.1 {ratio} Normal [place] Comment on above: Performed By: #### C MP ####[facility] Ysfudlppjj[address] [place], [place] [address]Dr. Chrissy Frazier ALP [Catalytic activity/Vol] 65 U/L Normal 46-116 The [facility] Comment on above: Performed By: #### C MP ####[facility] Nissalvmyw0716[address] [place], [place] [address]Dr. Chrissy Frazier ALT [Catalytic activity/Vol] 46 U/L Normal 16-63 The [facility] Comment on above: Performed By: #### C MP ####[facility] Wcxikfaini853[address] [place], [place] [address]Dr. Chrissy Frazier Anion gap [Moles/Vol] 13.2 mmol/L Normal The [facility] Comment on above: Performed By: #### C MP ####[facility] Yxuhpdekrg9555[address] [place], [place] [address]Dr. Chrissy Frazier AST [Catalytic activity/Vol] 33 U/L Normal 15-37 The [facility] Comment on above: Performed By: #### C MP ####[facility] Ttjggeroby6137[address] [place], [place] [address]Dr. Chrissy Frazier Bilirubin [Mass/Vol] 0.8 mg/dL Normal 0.2-1.0 The [facility] Comment on above: Performed By: #### C MP ####[facility] Vmhtalcaih190[address] [place], [place] [address]Dr. Chrissy Frazier Calcium [Mass/Vol] 8.1 mg/dL Critically low 8.5-10.1 [facility] Comment on above: Performed By: #### C MP ####[facility] Lpktboehbx0141 [place] [address]Dr. Chrissy Frazier Chloride [Moles/Vol] 102 mmol/L Normal 98-107 [place] Comment on above: Performed By: #### C MP ####[facility] Esorsvxord2134 [place] [address]Dr. Chrissy Frazier CO2 [Moles/Vol] 24.0 mmol/L Normal 21.0-32.0 The [facility] Comment on above: Performed By: #### C MP ####[facility] Itzktiazug3938[address] [place], [place] [address]Dr. Chrissy Freddie Creatinine [Mass/Vol] 1.26 mg/dL Normal 0.70-1.30 [place] Comment on above: Performed By: #### C MP ####[facility] Yxostkmoyf225[address] [place], [place] [address]Dr. Chrissy Freddie EGFR-AF CROATIAN >60 Normal >=60 [facility] Comment on above: Performed By: #### C MP ####[facility] Karfjzwwio9835[address] [place], [place] [address]Dr. Tishrowan Freddie EGFR-NON AF CROATIAN >60 Normal >=60 [place] Comment on above: Performed By: #### C MP ####[facility] Uiurwvevjp4133 [place] [address]Dr. Chrissy Frazier Globulin (S) [Mass/Vol] 3.7 g/dL Normal [place] Comment on above: Performed By: #### C MP ####[facility] Hcjcncrurt8166 [place] [address]Dr. Chrissy Frazier Glucose [Mass/Vol] 119 mg/dL Critically high 74-106 [facility] Comment on above: Performed By: #### C MP ####[facility] Fxutmnjded8149 [place] [address]Dr. Chrissy Frazier Potassium [Moles/Vol] 3.2 mmol/L Critically low 3.5-5.1 [place] Comment on above: Performed By: #### C MP ####[facility] Ofafvgjrwt0672 [place] [address]Dr. Chrissy Frazier Protein [Mass/Vol] 7.6 g/dL Normal 6.4-8.2 [facility] Comment on above: Performed By: #### C MP ####[facility] Uwvjavpyan9026 [place] [address]Dr. Chrissy Frazier Sodium [Moles/Vol] 136 mmol/L Normal 136-145 [facility] Comment on above: Performed By: #### C MP ####[facility] Vcorvskkhq1430 [place] [address]Dr. Chrissy Frazier Urea nitrogen [Mass/Vol] 14.0 mg/dL Normal 7.0-18.0 The [facility] Comment on above: Performed By: #### C MP ####[facility] Wzungcpltx0617 [place] [address]Dr. Chrissy Frazier Urea nitrogen/Creatinine [Mass ratio] 11.1 mg/mg Normal [place] Comment on above: Performed By: #### C MP ####[facility] Ghtgohbdvw4493 [place] [address]Dr. Chrissy Frazier CBC W MANUAL DIFFon 03-27-20 22 ATYPICAL LYMPH # Normal [facility] Comment on above: Performed By: #### C BCMAN ####[facility] Qswhhghasr6873 [place] [address]Dr. Chrissy Freddie ATYPICAL LYMPH % Normal The [facility] Comment on above: Performed By: #### C BCMAN ####[facility] Usdfrnfrdj4723 [place] [address]Dr. Chrissy Frazier BAND # 0.0 103/ul Normal 0.0-0.3 The [facility] Comment on above: Performed By: #### C BCMAN ####[facility] Bnuxvzpviz2873 [place] [address]Dr. Chrissy Frazier BAND % 0 % Normal 0-5 The [facility] Comment on above: Performed By: #### C BCMAN ####[facility] Jbzwtpmiip9831 [place] [address]Dr. Chrissy Frazier BASOM # 0.00 103/ul Normal 0.00-0.10 The [facility] Comment on above: Performed By: #### C BCMAN ####[facility] Vcigtgtptf6480 [place] [address]Dr. Chrissy Frazier BASOM % 0.0 % Critically low 0.2-2.0 The [facility] Comment on above: Performed By: #### C BCMAN ####[facility] Tpbwwhlowk1821 [place] [address]Dr. Chrissy Frazier BLAST # Normal [place] Comment on above: Performed By: #### C BCLEANDRO ####[facility] Kuhjhjsbul[address] [place], [place] [address]Dr. Chrissy Frazier BLAST % Normal The [facility] Comment on above: Performed By: #### C BCLEANDRO ####[facility] Kikxvxdwxn5748[address] [place], [place] [address]Dr. Chrissy Frazier CORRECTED WBC Normal 4.0-11.0 The [facility] Comment on above: Performed By: #### C BCLEANDRO ####[facility] Lgpcrtzfir1[address] [place], [place] [address]Dr. Chrissy Frazier EOS # 0.00 103/ul Normal 0.00-0.70 The [facility] Comment on above: Performed By: #### C BCLEANDRO ####[facility] Nbznxqbjzw9098[address] [place], [place] [address]Dr. Chirssy Frazier EOS% 0.0 % Critically low 0.9-7.0 The [facility] Comment on above: Performed By: #### C BCLEANDRO ####[facility] Jndvjcffdc2727[address] [place], [place] [address]Dr. Chrissy Frazier HCT 47.3 % Normal 42.0-54.0 The [facility] Comment on above: Performed By: #### C BCMAN ####[facility] Ildexgsneq6397[address] [place], [place] [address]Dr. Chrissy Frazier HGB 16.4 g/dl Normal 14.0-18.0 The [facility] Comment on above: Performed By: #### C BCMAN ####[facility] Nheekbveia2751 [place], [place] [address]Hv. Chrissy Frazier LYMPHM # 2.31 103/ul Normal 1.20-3.80 The [facility] Comment on above: Performed By: #### C ANTONETTE ####[facility] Akqsiljbgk3341 [place], [place] [address]Qn. Chrissy Frazier LYMPHM% 9.0 % Critically low 20.5-60.0 The [facility] Comment on above: Performed By: #### C ANTONETTE ####[facility] Nuqqjrkxlo8701 [place] [address]Dr. Chrissy Frazier MCH 28.6 pg Normal 25.9-34.0 The [facility] Comment on above: Performed By: #### C ANTONETTE ####[facility] Vnixmgaejo4516 [place] [address]Dr. Chrissy Frazier MCHC 34.7 g/dl Normal 29.9-35.2 The [facility] Comment on above: Performed By: #### C ANTONTETE ####[facility] Rryzqgvcvb0344 [place] [address]Dr. Chrissy Frazier MCV 82.4 fL Normal 80.0-94.0 The [facility] Comment on above: Performed By: #### C ANTONETTE ####[facility] Fasbkotmdh2817 [place] [address]Dr. Chrissy Frazier METAMYELOCYTE # Normal [facility] Comment on above: Performed By: #### C ANTONETTE ####[facility] Zanzeygpdr8577 [place] [address]Dr. Chrissy Frazier METAMYELOCYTE % Normal [facility] Comment on above: Performed By: #### C ANTONETTE ####[facility] Jomvbtnhug4536 [place] [address]Dr. Chrissy Frazier MONOM# 3.85 103/ul Critically high 0.30-0.80 [facility] Comment on above: Performed By: #### C ANTONETTE ####[facility] Tcvpfbyuev8998 [place] [address]Dr. Chrissy Frazier MONOM% 15.0 % Critically high 1.7-12.0 [facility] Comment on above: Performed By: #### C ANTONETTE ####[facility] Omhfijsbnh3878 [place] [address]Dr. Chrissy Frazier MPV 10.6 fL Normal 9.5-13.5 The [facility] Comment on above: Performed By: #### C ANTONETTE ####[facility] Aimztkozuv0087 [place] [address]Dr. Chrissy Frazier MYELOCYTE # Normal [place] Comment on above: Performed By: #### C ANTONETTE ####[facility] Bqgypwubpt7455 [place] [address]Dr. Chrissy Frazier MYELOCYTE % Normal The [facility] Comment on above: Performed By: #### C ANTONETTE ####[facility] Watehgdaxk9420 [place] [address]Dr. Chrissy Frazier NRBC Normal The [facility] Comment on above: Performed By: #### C ANTONETTE ####[facility] Nxkjkdqazc3307 [place] [address]Dr. Chrissy Frazier PLT 471 103/ul Critically high 150-450 [facility] Comment on above: Performed By: #### C ANTONETTE ####[facility] Jzfknkvrsi4951 [place] [id number]. Chrissy Frazier RBC 5.74 106/ul Normal 4.70-6.10 The [facility] Comment on above: Performed By: #### C ANTONETTE ####[facility] Tiarxzsqqa2090 [place] [address]Dr. Chrissy Frazier RDW 13.7 % Normal 11.0-15.0 The [facility] Comment on above: Performed By: #### C ANTONETTE ####[facility] Qwzubnuags4193 [place] [address]Dr. Chrissy Frazier SEG # 19.53 103/ul Critically high 1.40-6.50 [facility] Comment on above: Performed By: #### C ANTONETTE ####[facility] Ewcujvdivf2565 [place] [id number]. Chrissy Frazier SEG % 76.0 % Critically high 43.0-75.0 [facility] Comment on above: Performed By: #### C BCMAN ####[facility] Bxbckfrqru3124 [place] [address]Dr. Chrissy Frazier TOXIC GRANULATION SLIGHT Normal The [facility] Comment on above: Result Comment: few vacoules Performed By: #### C BCMAN ####[facility] Kztgscspfd2453 [place] [address]Dr. Chrissy Frazier WBC 25.7 103/ul Critically high 4.0-11.0 The [facility] Comment on above: Performed By: #### C ANTONETTE ####[facility] Upmymrnkem[address] [place], [place] [address]Dr. Chrissy Freddie LACTATE/LACTIC ACIDon 2021 Lactate [Moles/Vol] 2.4 mmol/L Critically high 0.4-1.9 [place] Comment on above: Performed By: #### L ACT ####[facility] Rziialuvjy32[address] [place], [place] [address]Dr. Chrissy Frazier Lactate [Moles/Vol] 3.5 mmol/L Critically high 0.4-1.9 The [facility] Comment on above: Performed By: #### L ACT ####[facility] Xomvnjhxtb364[address] [place], [place] [address]Dr. Chrissy Frazier LIPASEon 03-27-2022 Lipase [Catalytic activity/Vol] 43.0 U/L Critically low 73.0-393.0 The [facility] Comment on above: Performed By: #### C MP, LIPA ####[facility] Tqhkftcgfx5810 [place] [address]Dr. Chrissy Frazier PROF 14(COMP METB)on 022 Albumin [Mass/Vol] 4.7 g/dL Normal 3.4-5.0 [facility] Comment on above: Performed By: #### C MP, LIPA ####[facility] Fffvdvwzqp9915[address] [place], [place] [address]Dr. Tishrowan Frazier Albumin/Globulin [Mass ratio] 1.1 {ratio} Normal The [facility] Comment on above: Performed By: #### C MP, LIPA ####[facility] Jwopnhhzzb3415 [place] [address]Dr. Chrissy Frazier ALP [Catalytic activity/Vol] 69 U/L Normal 46-116 [place] Comment on above: Performed By: #### C MP, LIPA ####[facility] Vivibrmqeu8658 [place] [address]Dr. Chrissy Frazier ALT [Catalytic activity/Vol] 47 U/L Normal 16-63 [place] Comment on above: Performed By: #### C MP, LIPA ####[facility] Kynhgmjque9334 [place] [address]Dr. Chrissy Frazier Anion gap [Moles/Vol] 23.2 mmol/L Normal [place] Comment on above: Performed By: #### C MP, LIPA ####[facility] Qcusarqsau8901[address] [place], [place] [address]Dr. Chrissy Frazier AST [Catalytic activity/Vol] 23 U/L Normal 15-37 [place] Comment on above: Performed By: #### C MP, LIPA ####[facility] Inknymcmic787[address] [place], [place] [address]Dr. Chrissy Frazier Bilirubin [Mass/Vol] 0.7 mg/dL Normal 0.2-1.0 [place] Comment on above: Performed By: #### C MP, LIPA ####[facility] Gnhlnkevuh036[address] [place], [place] [address]Dr. Chrissy Frazier Calcium [Mass/Vol] 9.2 mg/dL Normal 8.5-10.1 [facility] Comment on above: Performed By: #### C MP, LIPA ####[facility] Myibferiwt1260 [place] [address]Dr. Chrissy Freddie Chloride [Moles/Vol] 97 mmol/L Critically low 98-107 [place] Comment on above: Performed By: #### C MP, LIPA ####[facility] Usahnfjyxa[address] [place], [place] [address]Dr. Chrissy Freddie CO2 [Moles/Vol] 18.2 mmol/L Critically low 21.0-32.0 [place] Comment on above: Performed By: #### C MP, LIPA ####[facility] Wdfaglzfum6[address] [place], [place] [address]Dr. Chrissy Frazier Creatinine [Mass/Vol] 1.77 mg/dL Critically high 0.70-1.30 [place] Comment on above: Performed By: #### C MP, LIPA ####[facility] Yrzadvwsam5340[address] [place], [place] [address]Dr. Chrissy Frazier EGFR-AF CROATIAN 54 mL/min/1.73m2 Critically low >=60 [place] Comment on above: Performed By: #### C MP, LIPA ####[facility] Ylowphntwb[address] [place], [place] [address]Dr. Chrissy Freddie EGFR-NON AF CROATIAN 45 mL/min/1.73m2 Critically low >=60 [place] Comment on above: Performed By: #### C MP, LIPA ####[facility] Ncvqgzusdi060[address] [place], [place] [address]Dr. Chrissy Freddie Globulin (S) [Mass/Vol] 4.4 g/dL Normal [place] Comment on above: Performed By: #### C MP, LIPA ####[facility] Kydzedmrlw[address] [place], [place] [address]Dr. Chrissy Frazier Glucose [Mass/Vol] 131 mg/dL Critically high 74-106 [facility] Comment on above: Performed By: #### C MP, LIPA ####[facility] Kkptgzonje4546[address] [place], [place] [address]Dr. Chrissy Frazier Potassium [Moles/Vol] 3.4 mmol/L Critically low 3.5-5.1 [place] Comment on above: Performed By: #### C MP, LIPA ####[facility] Lmqlaovmuc11[address] [place], [place] [address]Dr. Chrissy Freddie Protein [Mass/Vol] 9.1 g/dL Critically high 6.4-8.2 [facility] Comment on above: Performed By: #### C MP, LIPA ####[facility] Mudirugszf0331 [place], [place] [address]Pe. Chrissy Frazier Sodium [Moles/Vol] 135 mmol/L Critically low 136-145 [facility] Comment on above: Performed By: #### C MANA, LIPA ####[facility] Dzkvkacywd2952 [place], [place] [address]Yy. Chrissy Frazier Urea nitrogen [Mass/Vol] 19.0 mg/dL Critically high 7.0-18.0 [place] Comment on above: Performed By: #### C MANA, LIPA ####[facility] Vvfhdgghrd3618 [place], [place] [address]Qu. Chrissy Frazier Urea nitrogen/Creatinine [Mass ratio] 10.7 mg/mg Normal [place] Comment on above: Performed By: #### C MANA, OSWALD ####[facility] Gbqjzkfavh0328 [place], [place] [address]Ad. Chrissy Frazier BMPon 11-03-2020 Anion gap [Moles/Vol] 14 mmol/L Normal 6-16 [facility] Comment on above: Performed By: #### 2 [id number], [id number], [id number] #### [facility] [address] [place] [address] Calcium [Mass/Vol] 9.0 mg/dL Normal 8.9-11.1 [facility] Comment on above: Performed By: #### 2 [id number], [id number], [id number] #### [facility] [address] [place] [address] Chloride [Moles/Vol] 104 mmol/L Normal 101-111 [facility] Comment on above: Performed By: #### 2 [id number], [id number], [id number] #### [facility] [address] [place] [address] CO2 [Moles/Vol] 21 mmol/L Normal 21-31 [facility] Comment on above: Performed By: #### 2 [id number], [id number], [id number] #### [facility] [address] [place] [address] Creatinine [Mass/Vol] 1.3 mg/dL Normal 0.5-1.3 [facility] Comment on above: Performed By: #### 2 [id number], [id number], [id number] #### [facility] [address] [place] [address] Glucose [Mass/Vol] 111 mg/dL Normal 55-199 [facility] Comment on above: Result Comment: If t his glucose result represents a fasting glucose, interpretation should refer to the following reference range: 55-99 mg/dL Performed By: #### 2 [id number], [id number], [id number] #### [facility] [address] [place] [address] Potassium [Moles/Vol] 2.9 mmol/L Low 3.5-5.3 [facility] Comment on above: Performed By: #### 2 019344, [id number], [id number] #### [facility] [address] [place] [address] Sodium [Moles/Vol] 136 mmol/L Normal 135-145 [facility] Comment on above: Performed By: #### 2 [id number], [id number], [id number] #### [facility] [address] [place] [address] Urea nitrogen [Mass/Vol] 14 mg/dL Normal 5-21 [facility] Comment on above: Performed By: #### 2 038539, [id number], [id number] #### [facility] [address] [place] [address] Urea nitrogen/Creatinine [Mass ratio] 11 No Units Normal 10-20 [facility] Comment on above: Performed By: #### 2 [id number], [id number], [id number] #### [facility] [address] [place] [address] Lipase Levelon 11-03-2020 Lipase [Catalytic activity/Vol] 66 unit/L High 13-58 [facility] Comment on above: Performed By: #### 2 605641, [id number], [id number] #### [facility] [address] [place] [address] Physician Orderon 11-03-2020 Physician Order [id number] 3#1.00CD:127 Normal [facility] eGFRon 11-03-2020 GFR/1.73 sq M predicted among blacks MDRD (S/P/Bld) [Vol rate/Area] mL/min/{1.73_m2} Normal >=59 [facility] Comment on above: Order Comment: Order added by Discern Expert. Result Comment: eGFR is race adjusted. AA=. Performed By: #### 2 [id number], [id number], [id number] #### [facility] [address] [place] [address] GFR/1.73 sq M predicted among non-blacks MDRD (S/P/Bld) [Vol rate/Area] mL/min/{1.73_m2} Normal >=59 [facility] Comment on above: Order Comment: Order added by Discern Expert. Result Comment: Health Information Tech lindsay kidney disease could be indicated at eGFR's of less than 60 mL/min/1.73m2. Kidney failure is indicated at less than 15 mL/min/1.73m2. Performed By: #### 2 [id number], [id number], [id number] #### [facility] [address] [place] [address] Encounters Encounter Date Encounter Type Care Provider Facility Start: 03-30-2023 ambulatory Luis Angel valenciaty:[facility] Start: 01-03-2023 End: 01-04-[address] MELODY MAROI . Facility:[facility] Start: 01-03-2023 End: 01-04-2023 ambulatory RAQUEL BANKS Facility:[facility] Start: 12-29-2022 End: 12-30-[address] MELODY MARIO . Facility:[facility] Start: 12-13-2022 End: 12-14-2022 ambulatory [facility] Start: 11-24-2022 End: 11-24-2022 ambulatory [facility] Start: 11-16-2022 End: 11-17-[address] [...] Date Payer Category Payer Self-pay 1990 Unknown [id number] 1990 Unknown [id number] 1990 Unknown [id number] .16.84 0.1.695333.3.579.2.593 1990 Unknown [id number] .16.84 0.1.884472.3.579.2.593 1990 Unknown [id number] .16.84 0.1.563426.3.579.2.593 1990 Unknown [id number] .16.84 0.1.579574.3.579.2.593 1990 Unknown [id number] 2.16.84 0.1.174709.3.579.2.593 1990 Unknown [id number] 2.16.84 0.1.365784.3.579.2.593 1990 Unknown [id number] 2.16.84 0.1.157744.3.579.2.593 1990 Unknown [id number] 2.16.84 0.1.090841.3.579.2.593 1990 Unknown [id number] 2.16.84 0.1.697761.3.579.2.593 1990 Unknown [id number] 2.16.84 0.1.235302.3.579.2.593 1990 Unknown [id number] 2.16.84 0.1.537347.3.579.2.593 1959 Private Health Insurance [id number] Unknown [id number] 2.16.8 40.1.143557.3.579.2.531 Progress note 11-24-2022 Note Date & Type [...] report that his father had a fatal OH at the age of 54. Stress test [...] factor modification -Plan (more content not included)... [facility] Progress note 11-24-2022 Note Date & [...] All other systems reviewed and are negative. [facility] Summary Purpose Family History No Family [...] section and content) DATE CREATED AUTHOR 11/04/2020 [facility] DATE CREATED AUTHOR AUTHOR'S ORGANIZ ATION 01/08/2023 [facility] DATE CREATED AUTHOR AUTHOR'S ORGANIZ ATION 02/07/2023 [facility] DATE CREATED AUTHOR AUTHOR'S ORGANIZ ATION 04/01/2023 [facility] FOR RECORDS PERTAINING TO PATIENTS [...] BE BASED ON THE PRIMARY CLINICAL RECORDS. [facility]. provides no warranty or guarantee of the accuracy or completeness of information in this document.
[2023-11-24] MEDS: HALOPERIDOL LACTATE 5 MG/ML VIAL 2 MG IV (18:45)
[2023-11-24] MEDS: 0.9 % SODIUM CHLORIDE 1,000 ML 1000 ML IV (18:46)
[2023-11-24] MEDS: HYOSCYAMINE SULFATE 0.125 MG TAB.SUBL SL (18:46)
[2023-11-24 20:16] LABS: Ammonia <10 umol/L (11-32); Amylase 28 U/L (25-115); Magnesium 1.9 mg/dL (1.8-2.4)
[2023-11-24] MEDS: CLONIDINE HCL 0.1 MG TABLET PO (20:16)
[2023-11-24] MEDS: METOCLOPRAMIDE HCL 10 MG/2 ML VIAL IVP (20:16)
[2023-11-24 20:23] LABS: Lactate/Lactic Acid 1.2 mmol/L (0.4-2.0)
[2023-11-24] MEDS: LACTATED RINGER'S SOLUTION 1,000 ML 100 ML IV (21:33)
[2023-11-24] MEDS: HYDROXYZINE PAMOATE 25 MG CAPSULE PO (21:34)
[2023-11-24] MEDS: PHENobarbitaL 32.4 MG TABLET PO (21:34)
[2023-11-24] MEDS: LITHIUM CARBONATE 150 MG CAPSULE 300 MG PO (21:34)
[2023-11-24 23:11] LABS: Bilirubin Urine NEGATIVE (NEGATIVE); Blood Urine NEGATIVE (NEGATIVE); Clarity Urine CLEAR (CLEAR); Color Urine LT. YELLOW (YELLOW); Glucose Urine UA NEGATIVE (NEGATIVE); Ketones Urine NEGATIVE (NEGATIVE); Leukocyte Esterase Urine NEGATIVE (NEGATIVE); Nitrite Urine NEGATIVE (NEGATIVE); Protein Urine NEGATIVE (NEG/TRACE); Specific Gravity Urine <=1.005 (1.005-1.025); Urobilinogen Urine 0.2 EU/dL (0.2-1.0)
[2023-11-24 23:16] LABS: Urine Microscopic Indicated NO
[2023-11-24 23:23] LABS: Amphetamine Screen Urine NEGATIVE (NEGATIVE); Barbiturates Screen Urine NEGATIVE (NEGATIVE); Benzodiazepines Screen Urine NEGATIVE (NEGATIVE); Buprenorphine Screen Urine NEGATIVE (NEGATIVE); Cannabinoid Screen Urine POSITIVE (NEGATIVE); Cocaine Screen Urine NEGATIVE (NEGATIVE); Methadone Screen Urine NEGATIVE (NEGATIVE); Methamphetamines Screen Urine NEGATIVE (NEGATIVE); Opiate Screen Urine NEGATIVE (NEGATIVE); Oxycodone Screen Urine NEGATIVE (NEGATIVE); Phencyclidine Screen Urine NEGATIVE (NEGATIVE); Tricyclic Antidepressant Urine NEGATIVE (NEGATIVE)
[2023-11-25] VITALS (7 sets, daily range): BP systolic 134; BP diastolic 88; PULSE 47–71; RESP 16; TEMP 36.5; O2SAT 96–98
[2023-11-25] MEDS: METOCLOPRAMIDE HCL 10 MG/2 ML VIAL IVP ×2 (02:59→08:07)
[2023-11-25 05:07] LABS: Basophils Absolute Auto 0.1 10^3/uL (0.0-0.1); Basophils Percent Auto 0.4 % (0.2-2.0); Eosinophils Absolute Auto 0.2 10^3/uL (0.0-0.7); Eosinophils Percent Auto 1.4 % (0.9-7.0); Hematocrit 39.7 % (42.0-54.0); Hemoglobin 13.2 g/dL (14.0-18.0); Immature Granulocytes Abs Auto 0.06 10^3/uL (0.00-0.03); Immature Granulocytes Pct Auto 0.5 % (0.0-0.5); Lymphocytes Absolute Auto 4.9 10^3/uL (1.2-3.8); Lymphocytes Percent Auto 37.8 % (20.5-60.0); Mean Corpuscular HGB Conc 33.2 g/dL (29.9-35.2); Mean Corpuscular Hemoglobin 28.3 pg (25.9-34.0); Mean Corpuscular Volume 85.2 fL (80.0-94.0); Mean Platelet Volume 10.6 fL (9.5-13.5); Monocytes Percent Auto 7.7 % (1.7-12.0); Neutrophils Absolute Auto 6.8 10^3/uL (1.4-6.5); Neutrophils Percent Auto 52.2 % (43.0-75.0); Platelet Count 341 10^3/uL (150-450); Red Blood Count 4.66 10^6/uL (4.70-6.10); Red Cell Distribution Width 13.8 % (11.0-15.0)
[2023-11-25 05:21] LABS: Anion Gap 11.8; BUN Creatinine Ratio 6.2; Calcium 8.5 mg/dL (8.5-10.1); Carbon Dioxide 23.7 mmol/L (21.0-32.0); Chloride 106 mmol/L (98-107); Estimated GFR (African America >60 (>=60); Estimated GFR (Non-African Ame >60 (>=60); Glucose 101 mg/dL (74-106); Potassium 3.5 mmol/L (3.5-5.1); Sodium 138 mmol/L (136-145)
[2023-11-25] MEDS: PHENobarbitaL 32.4 MG TABLET PO (05:31)
[2023-11-25] MEDS: LACTATED RINGER'S SOLUTION 1,000 ML 100 ML IV (05:32)
[2023-11-25] MEDS: ONDANSETRON PF 4 MG/2 ML VIAL IV (05:35)
[2023-11-25] MEDS: PROPRANOLOL HCL 20 MG TABLET 80 MG PO (08:07)
[2023-11-25] MEDS: CLONIDINE HCL 0.1 MG TABLET PO (08:07)
--- NOTE | 2023-11-25 08:11 | P.PN_ITS ---
Progress Note: Subjective Subjective Interval history: Patient with a history of cyclic vomiting syndrome, seen and evaluated in the office, recurrence of abdominal pain, recurrent nausea vomiting, unable to keep down lithium in the last 3 days, starting to get into a manic phase. Patient was admitted for workup and treatment of same. Exam Constitutional Vital Signs, click to edit/add: Last Vital Signs Temp 97.7 F 11/25/23 03:04 Pulse 60 11/25/23 08:00 Resp 16 11/25/23 03:04 BP 134/88 11/25/23 03:04 Pulse Ox 96 11/25/23 04:06 O2 Del Method Room Air 11/25/23 04:06 Documenting provider has reviewed patient's vital signs: yes Common normals: no apparent distress Chest Common normals: inspection of chest normal Respiratory Common normals: normal respiratory effort GI Common normals: Normal to inspection, nondistended, normoactive bowel sounds present, soft to palpation and non-tender Progress Note: Objective Labs Labs: Short CBC 11/24/23 Range/Units 16:55 WBC 16.0 H (4.0-11.0) 10^3/uL Hgb 15.5 (14.0-18.0) g/dL Hct 44.2 (42.0-54.0) % Plt Count 442 (150-450) 10^3/uL BMP 11/24/23 16:55 Sodium 131 L Potassium 2.8 L* Chloride 98 Carbon Dioxide 18.4 L BUN 10.0 Creatinine 1.34 H Glucose 118 H Calcium 9.3 Liver Function 11/24/23 Range/Units 16:55 Total Bilirubin 0.9 (0.2-1.0) mg/dL AST 30 (15-37) U/L ALT 97 H (16-63) U/L Alkaline Phosphatase 82 (46-116) U/L Albumin 4.0 (3.4-5.0) g/dL Urine 11/24/23 Range/Units 23:03 Urine Color Lt. yellow (YELLOW) Urine Clarity Clear (CLEAR) Urine pH 7.0 (5.0-9.0) Ur Specific [place] <=1.005 A (1.005-1.025) Urine Protein Negative (NEG/TRACE) mg/dL Urine Glucose (UA) Negative (NEGATIVE) mg/dL Progress Note: A&P Assessment and Plan (1) Abdominal pain: (2) Nausea & vomiting: Plan Uncontrolled hypertension, positive lactate, leukocytosis, hypokalemia, acute elevation in BUN and creatinine secondary to cyclic vomiting syndrome with dehydration-patient much improved this morning. Will give additional fluid bolus this morning. If he tolerates breakfast no issues after bolus he can be discharged home in improving condition. Medications see list. Follow-up with me just as needed. Bipolar disorder responding to lithium-his lithium level is low but we will just have him restart his regular dose. He has doxepin at home he can use to help with his insomnia.
--- OUTSIDE RECORDS SUMMARY | 2023-11-25 14:52 | XMS_ITS | CCD ---
Author Name Unknown Address [address] [place] [address] Organization [facility] Care Team Providers Care Ed Case Manager Name Role Phone DARREN MOHAMAD Referring Unavailable [...] HOY ., DR OLIVER Primary Care Unavailable OEDLL OCAMPO Consulting Unavailable CHERYL .DELORES Attending Unavailable [...] Unavailable HOY ., DR OLIVER Admitting Unavailable BRYSON, DR RAPHAEL Lemon Consulting Unavailable Michaels, K Consulting Unavailable HOY ., DR OLIVER Consulting Unavailable HOY ., DR OLIVER Attending Unavailable HOY ., DR OLIVER Admitting Unavailable HOY ., DR OLIVER Primary Care Unavailable LUISA, DR CHAIRSSA Buckley Consulting Unavailabl e HAYLEE, DR CASSIA Del Angel Consulting Unavailable DARRELL TOLEDO Consulting Unavailable KAYDEN BRANTLEY Consulting Unavailable Luis Angel Bentley Attending UnavailLuis Angel Conway Admitting UnavailMelody Benitez Primary Care Unavailable Allergies Allergy Classification Reported Allergen(s) Allergy Type Date of Onset Reaction(s) Facility (3 sources) Penicillins; Translations: [PENICILLINS] Propensity to adverse reactions to drug (disorder) 09-28-20 [facility] Repository (1 source) Sulfamethoxazole / Trimethoprim; Translations: [SULFAMETHOXAZOLE-TR IMETHOPRIM] Drug Allergy 01-27-20 [facility] Repository (1 source) Clarithromycin Drug Allergy [facility] Repository (1 source) Sulfamethoxazole / Trimethoprim Drug Allergy 05-27-20 17 [facility] Repository (1 source) Sulfamethoxazole Drug Allergy 03-20-20 [facility] Repository (1 source) Trimethoprim Drug Allergy 03-20-20 [facility] Repository Problems Active Problems Problem Classification [...] 11-16-2022 [facility] Other aftercare (1 source) Other halfway (current) drug therapy; Translations: [OTH ACTUARIAL DIRECTOR CURRENT DRUG THERAPY] Onset: 02-07-2023 Episodic Other [...] IGG ABS 0.09 Index Value Normal 0.00-0.79 [facility] Comment on above: Result Comment: Nega tive <0.80 Equivocal 0.80 - 0.89 Positive >0.89 Performed By: #### H PYLLC ####[facility] B[address]ew[address] [place] [address]Dr. Chrissy Frazier AMYLASEon 01-04-2023 Amylase [Catalytic activity/Vol] 34 U/L Normal 25-115 [facility] Comment on above: Performed By: #### A MY ####[facility] Sivsdboekp[address] [place], [place] [address]Dr. Chrissy Frazier CBC AUTO DIFFon 01-04-2023 BASO # 0.0 103/ul Normal 0.0-0.1 [facility] Comment on above: Performed By: #### C BC ####[facility] Hxllzowiia[address] [place], [place] [address]Dr. Chrissy Frazier Basophils/100 WBC (Bld) 0.1 % Critically low 0.2-2.0 [facility] Comment on above: Performed By: #### C BC ####[facility] Ttmqouauyl[address] [place], [place] [address]Dr. Chrissy Frazier EO # 0.0 103/ul Normal 0.0-0.7 [facility] Comment on above: Performed By: #### C BC ####[facility] Obbqzlnixx2364[address] [place], [place] [address]Dr. Chrissy Frazier Eosinophils/100 WBC (Bld) 0.1 % Critically low 0.9-7.0 [facility] Comment on above: Performed By: #### C BC ####[facility] Rtbbbfzjys[address] [place], [place] [address]Dr. Chrissy Frazier Erythrocyte distribution width (RBC) [Ratio] 14.0 % Normal 11.0-15.0 [facility] Comment on above: Performed By: #### C BC ####[facility] Nhutrjchgj[address] [place], [place] [address]Dr. Chrissy Frazier Hematocrit (Bld) [Volume fraction] 40.4 % Critically low 42.0-54.0 [facility] Comment on above: Performed By: #### C BC ####[facility] Hubvfmdwrx85[address] [place] [address]Dr. Chrissy Frazier Hemoglobin (Bld) [Mass/Vol] 13.8 g/dL Critically low 14.0-18.0 [facility] Comment on above: Performed By: #### C BC ####[facility] Mctcdsjxwf4[address] [place] [address]Dr. Chrissy Frazier IG # 0.05 10e3/ul Critically high 0.00-0.03 [facility] Comment on above: Performed By: #### C BC ####[facility] Gharqsvanh[address] [place] [address]Dr. Chrissy Frazier IG % 0.3 % Normal 0.0-0.5 [facility] Comment on above: Performed By: #### C BC ####[facility] Ziuvadpzrr[address] [place], [place] [address]Dr. Chrissy Frazier LYMPH # 1.7 103/ul Normal 1.2-3.8 [facility] Comment on above: Performed By: #### C BC ####[facility] Zmnwapptvz224[address] [place] [address]Dr. Chrissy Frazier Lymphocytes/100 WBC (Bld) 11.9 % Critically low 20.5-60.0 [facility] Comment on above: Performed By: #### C BC ####[facility] Hjcylzjggb[address] [place] [address]Dr. Chrissy Frazier MANUAL DIFF REQ NO Normal [facility] Comment on above: Performed By: #### C BC ####[facility] Nupsrnvanr39[address] [place], [place] [address]Dr. Chrissy Frazier MCH (RBC) [Entitic mass] 29.3 pg Normal 25.9-34.0 [facility] Comment on above: Performed By: #### C BC ####[facility] Alaeemqwyr9[address] [place], [place] [address]Dr. Chrissy Frazier MCHC (RBC) [Mass/Vol] 34.2 g/dL Normal 29.9-35.2 [facility] Comment on above: Performed By: #### C BC ####[facility] Fekxgsnuht4402 [place] [id number]. Chrissy Frazier MCV (RBC) [Entitic vol] 85.8 fL Normal 80.0-94.0 [facility] Comment on above: Performed By: #### C BC ####[facility] Ogocgpfcug6020 [place] [id number]. Chrissy Frazier MONO # 0.6 103/ul Normal 0.3-0.8 [facility] Comment on above: Performed By: #### C BC ####[facility] Njowqzekht6620 [place] [id number]. Chrissy Freddie Monocytes/100 WBC (Bld) 4.2 % Normal 1.7-12.0 [facility] Comment on above: Performed By: #### C BC ####[facility] V[address]is[address]hrni[address] [place], [place] [address]Dr. Chrissy Frazier NEUT # 12.0 103/ul Critically high 1.4-6.5 [facility] Comment on above: Performed By: #### C BC ####[facility] Wsuhfwzvqs[address] [place], [place] [address]Dr. Chrissy Freddie Neutrophils/100 WBC (Bld) 83.4 % Critically high 43.0-75.0 [facility] Comment on above: Performed By: #### C BC ####[facility] K[address]wrqvuerj[address] [place], [place] [address]Dr. Chrissy Freddie Platelet mean volume (Bld) [Entitic vol] 10.4 fL Normal 9.5-13.5 [facility] Comment on above: Performed By: #### C BC ####[facility] Fjtfdblplt[address] [place], [place] [address]Dr. Tishrowan Frazier PLT 313 103/ul Normal 150-450 [facility] Comment on above: Performed By: #### C BC ####[facility] Hgqqwaudkg9520 [place] [id number]. Chrissy Frazier RBC 4.71 106/ul Normal 4.70-6.10 [facility] Comment on above: Performed By: #### C BC ####[facility] Gelhsiuqkc97[address] [place] [address]Dr. Chrissy Frazier WBC 14.4 103/ul Critically high 4.0-11.0 [facility] Comment on above: Performed By: #### C BC ####[facility] Dkyakukauo[address] [place] [id number]. Chrissy Frazier CULTURE URINEon 01-04-2023 CULTURE URINE Culture Observations: NO GROWTH. Normal [facility] Comment on above: Performed By: #### U RCX ####[facility] Bjitoupadr20[address] [place] [address]Dr. Chrissy Frazier DRUG SCREEN RAPID (URINE)on 01-04-2023 AMP Negative Normal NEGATIVE [facility] Comment on above: Performed By: #### D REYES, UAMIC ####[facility] Qiuaagvfwp40[address] [place], [place] [address]Dr. Chrissy Frazier BAR Negative Normal NEGATIVE [facility] Comment on above: Performed By: #### D REYES, UAMIC ####[facility] Donbaehqtj6[address] [place] [address]Dr. Chrissy Frazier BUP Negative Normal NEGATIVE [facility] Comment on above: Performed By: #### D REYES, UAMIC ####[facility] Bzlosekdaz04[address] [place] [address]Dr. Chrissy Frazier BZO Positive Abnormal NEGATIVE [facility] Comment on above: Performed By: #### Amelie CHAMBERS, UAMIC ####[facility] Kydgqgdsiw9[address] [place] [address]Dr. Chrissy Frazier LAUREN Negative Normal NEGATIVE [facility] Comment on above: Performed By: #### D REYES, UAMIC ####[facility] Sqoatnukps[address] [place], [place] [address]Dr. Chrissy Frazier CUT-OFFS SEE BELOW Normal [facility] Comment on above: Result Comment: AMP [...] ng/mL Performed By: #### Amelie CHAMBERS, UAMIC ####[facility] Rzvuvihhwx23[address] [place], [place] [address]Dr. [facility] DRUG CUT HEADER DRUG CLASS TEST SYSTEM CUT-OFF CONCENTRATIONS ARE FOLLOWS: Normal [facility] Comment on above: Performed By: #### Amelie CHAMBERS UAMIC ####[facility] Wiwhnfztnx5[address] [place], [place] [address]Dr. [facility] mAMP Negative Normal NEGATIVE [facility] Comment on above: Performed By: #### Amelie CHAMBERS UAMIC ####[facility] Mnqazbbtdv[address] [place], [place] [address]Dr. [facility] MTD Negative Normal NEGATIVE [facility] Comment on above: Performed By: #### Amelie CHAMBERS, UAMIC ####[facility] Tfffrfmncj[address] [place], [place] [address]Dr. [facility] OPI Negative Normal NEGATIVE [facility] Comment on above: Performed By: #### Amelie CHAMBERS, UAMIC ####[facility] Hfresjrgxl69[address] [place], [place] [address]Dr. [facility] OXY Negative Normal NEGATIVE [facility] Comment on above: Performed By: #### Amelie CHAMBERS, UAMIC ####[facility] Dikhnzkpvk[address] [place], [place] [address]Dr. [facility] PCP Negative Normal NEGATIVE [facility] Comment on above: Performed By: #### Amelie CHAMBERS, UAMIC ####[facility] Crqovtnzmn[address] [place], [place] [address]Dr. [facility] PPX Negative Normal NEGATIVE [facility] Comment on above: Performed By: #### Amelie CHAMBERS UAMIC ####[facility] Smwkkgsxpj4404 [place] [id number]. Chrissy Frazier TCA Positive Abnormal NEGATIVE [facility] Comment on above: Performed By: #### D REYES UAMIC ####[facility] Ktiolmiaof3[address] [place] [address]Dr. Chrissy Frazier THC Positive Abnormal NEGATIVE [facility] Comment on above: Performed By: #### D REYES UAMIC ####[facility] Tqcqesiqts8[address] [place] [address]Dr. Chrissy Frazier LIPASEon 01-04-2023 Lipase [Catalytic activity/Vol] 57.0 U/L Critically low 73.0-393.0 [facility] Comment on above: Performed By: #### L IPA ####[facility] Sncyxmbasi[address] [place], [place] [address]Dr. Chrissy Frazier PROF 14(COMP METB)on 023 Albumin [Mass/Vol] 3.6 g/dL Normal 3.4-5.0 [facility] Comment on above: Performed By: #### C MP ####[facility] Ijiypzjiof36[address] [place] [address]Dr. Chrissy Frazier Albumin/Globulin [Mass ratio] 1.0 {ratio} Normal [facility] Comment on above: Performed By: #### C MP ####[facility] Ncdfepuqds6350 [place] [address]Dr. Chrissy Frazier ALP [Catalytic activity/Vol] 67 U/L Normal 46-116 [facility] Comment on above: Performed By: #### C MP ####[facility] Htzqnsagis8774 [place] [address]Dr. Chrissy Frazier ALT [Catalytic activity/Vol] 26 U/L Normal 16-63 [facility] Comment on above: Performed By: #### C MP ####[facility] Mujvegmjji7[address] [place] [address]Dr. Chrissy Frazier Anion gap [Moles/Vol] 16.3 mmol/L Normal [facility] Comment on above: Performed By: #### C MP ####[facility] Xyjgbjndae6561 [place] [id number]. Chrissy Frazier AST [Catalytic activity/Vol] 17 U/L Normal 15-37 [facility] Comment on above: Performed By: #### C MP ####[facility] Egggaxazub9058 [place] [id number]. Chrissy Frazier Bilirubin [Mass/Vol] 0.4 mg/dL Normal 0.2-1.0 [facility] Comment on above: Performed By: #### C MP ####[facility] Wyzpxvpbcd2043 [place] [id number]. Chrissy Frazier Calcium [Mass/Vol] 8.7 mg/dL Normal 8.5-10.1 [facility] Comment on above: Performed By: #### C MP ####[facility] Cxvbgqrvts2398 [place] [id number]. Chrissy Frazier Chloride [Moles/Vol] 106 mmol/L Normal 98-107 [facility] Comment on above: Performed By: #### C MP ####[facility] Dtxpvikuca3681 [place] [address]Dr. Chrissy Frazier CO2 [Moles/Vol] 22.6 mmol/L Normal 21.0-32.0 [facility] Comment on above: Performed By: #### C MP ####[facility] Cxqbyrggvp3796 [place] [id number]. Chrissy Frazier Creatinine [Mass/Vol] 0.99 mg/dL Normal 0.70-1.30 [facility] Comment on above: Performed By: #### C MP ####[facility] Tylpqjqcbk9592 [place] [id number]. Chrissy Frazier EGFR-AF LATVIAN >60 Normal >=60 [facility] Comment on above: Performed By: #### C MP ####[facility] Eahbtskoxk7741 [place] [id number]. Chrissy Frazier EGFR-NON AF LATVIAN >60 Normal >=60 [facility] Comment on above: Performed By: #### C MP ####[facility] Vfubuecseh[address] [place], [place] [address]Dr. Chrissy Frazier Globulin (S) [Mass/Vol] 3.6 g/dL Normal [facility] Comment on above: Performed By: #### C MP ####[facility] Vqngzsgzrb9[address] [place], [place] [address]Dr. Chrissy Frazier Glucose [Mass/Vol] 138 mg/dL Critically high 74-106 [facility] Comment on above: Performed By: #### C MP ####[facility] Xnizldknrp[address] [place], [place] [address]Dr. Chrissy Frazier Potassium [Moles/Vol] 3.9 mmol/L Normal 3.5-5.1 [facility] Comment on above: Performed By: #### C MP ####[facility] Cndddirbnp[address] [place], [place] [address]Dr. Chrissy Frazier Protein [Mass/Vol] 7.2 g/dL Normal 6.4-8.2 [facility] Comment on above: Performed By: #### C MP ####[facility] Uxxblvcsrl9[address] [place], [place] [address]Dr. Chrissy Frazier Sodium [Moles/Vol] 141 mmol/L Normal 136-145 [facility] Comment on above: Performed By: #### C MP ####[facility] Kxdlqmtjro[address] [place], [place] [address]Dr. Chrissy Frazier Urea nitrogen [Mass/Vol] 10.0 mg/dL Normal 7.0-18.0 [facility] Comment on above: Performed By: #### C MP ####[facility] Yaviwhelnu9[address] [place], [place] [address]Dr. Chrissy Freddie Urea nitrogen/Creatinine [Mass ratio] 10.1 mg/mg Normal [facility] Comment on above: Performed By: #### C MP ####[facility] Wmzxmdmhxu866[address] [place], [place] [address]Dr. Chrissy Freddie UA RANDOM W/MICROSCOPICon BACTERIA TRACE Abnormal NONE SEEN [facility] Comment on above: Performed By: #### D REYES, UAMIC ####[facility] Rvoynctzak[address] [place], [place] [address]Dr. Chrissy Frazier Bilirubin Ql (U) Negative Normal NEGATIVE [facility] Comment on above: Performed By: #### Amelie CHAMBERS, UAMIC ####[facility] Dmfkoabjvg[address] [place], [place] [address]Dr. Chrissy Frazier CAST NONE SEEN Normal NONE SEEN [facility] Comment on above: Performed By: #### Amelie LARKIND, UAMIC ####[facility] Qvwpvgrcqd8[address] [place], [place] [address]Dr. Chrissy Frazier Clarity (U) CLEAR Normal CLEAR [facility] Comment on above: Performed By: #### Amelie CHAMBERS, UAMIC ####[facility] Lsanuajwhv[address] [place], [place] [address]Dr. Chrissy Frazier Color (U) YELLOW Normal YELLOW [facility] Comment on above: Performed By: #### Amelie CHAMBERS, UAMIC ####[facility] Mfptmdbmzv[address] [place], [place] [address]Dr. Chrissy Frazier Crystals LM Nom (Urine sed) NONE SEEN Normal NONE SEEN [facility] Comment on above: Performed By: #### Amelie CHAMBERS, UAMIC ####[facility] Jmoolpxokh[address] [place], [place] [address]Dr. Chrissy Frazier Epithelial cells LM Ql (Urine sed) NONE SEEN Normal NONE SEEN /RARE [facility] Comment on above: Performed By: #### Amelie CHAMBERS, UAMIC ####[facility] Jsmabrjnut57[address] [place], [place] [address]Dr. Chrissy Frazier Glucose Ql (U) Negative Normal NEGATIVE [facility] Comment on above: Performed By: #### Amelie CHAMBERS, UAMIC ####[facility] Kcbrqcexzr[address] [place], [place] [address]Dr. Chrissy Frazier Hemoglobin Ql (U) Negative Normal NEGATIVE The [facility] Comment on above: Performed By: #### Amelie CHAMBERS, UAMIC ####[facility] Tzjfchfzam[address] [place], [place] [address]Dr. Chrissy Frazier Ketones Ql (U) 15 mg/dl Abnormal NEGATIVE [facility] Comment on above: Performed By: #### Amelie CHAMBERS UAMIC ####[facility] Dmvlbyvfbz98[address] [place] [address]Dr. Chrissy Freddie LEUKOCYTES Negative Normal NEGATIVE [facility] Comment on above: Performed By: #### Amelie CHAMBERS UAMIC ####[facility] Kbnpxmmuom17[address] [place] [address]Dr. Yirowan Frazier MUCOUS NONE SEEN Normal NONE SEEN [facility] Comment on above: Performed By: #### Amelie CHAMBERS UAMIC ####[facility] Eminfdsfct24[address] [place] [address]Dr. Tishrowan Frazier Nitrite Ql (U) Negative Normal NEGATIVE [facility] Comment on above: Performed By: #### Amelie CHAMBERS UAMIC ####[facility] Pkzbzcoawt7366 [place] [address]Dr. Chrissy Frazier pH (U) 6.5 [pH] Normal 5-9 [facility] Comment on above: Performed By: #### Amelie CHAMBERS UAMIC ####[facility] Fnwkyttndx[address] [place], [place] [address]Dr. Chrissy Frazier RBC NONE SEEN Abnormal 0-2 [facility] Comment on above: Performed By: #### Amelie CHAMBERS UAMIC ####[facility] Neyteclafb[address] [place], [place] [address]Dr. Tishrowan Frazier SPEC GRAVITY 1.020 Normal 1.005-<=1.[address] [facility] Comment on above: Performed By: #### Amelie CHAMBERS UAMIC ####[facility] Weqboptobw54[address] [place] [address]Dr. Tishrowan Frazier UA PROTEIN Negative Normal NEGATIVE/ TRACE The [facility] Comment on above: Performed By: #### Amelie CHAMBERS UAMIC ####[facility] Jdgyllurbu70[address] [place] [address]Dr. Tishrowan Frazier Urobilinogen Qn (U) 0.2 {Estrellita'U}/dL Normal 0.2 - 1. 0 [facility] Comment on above: Performed By: #### Amelie CHAMBERS UAMIC ####[facility] Hycsnahtuu69[address] [place] [address]Dr. Chrissy Frazier WBC NONE SEEN Normal NONE SEEN [facility] Comment on above: Performed By: #### D RUGRPD, UAMIC ####[facility] Pfsdysizcq[address] [place] [address]Dr. Chrissy Frazier AMMONIAon 01-03-2023 Ammonia (P) [Moles/Vol] 17 umol/L Normal 11-32 [facility] Comment on above: Performed By: #### A MM ####[facility] Xymqdlcaeq8[address] [place], [place] [address]Dr. Chrissy Frazier AMYLASEon 01-03-2023 Amylase [Catalytic activity/Vol] 38 U/L Normal 25-115 [facility] Comment on above: Performed By: #### L IPA, TERRENCE, CMP, MG ####[facility] Lihhrruutm[address] [place] [address]Dr. Chrissy Frazier CBC AUTO DIFFon 01-03-2023 BASO # 0.1 103/ul Normal 0.0-0.1 [facility] Comment on above: Performed By: #### C BC ####[facility] Nizfnnrwlc26[address] [place] [address]Dr. Chrissy Frazier Basophils/100 WBC (Bld) 0.4 % Normal 0.2-2.0 [facility] Comment on above: Performed By: #### C BC ####[facility] Hgcqihoooq[address] [place], [place] [address]Dr. Chrissy Frazier EO # 0.1 103/ul Normal 0.0-0.7 [facility] Comment on above: Performed By: #### C BC ####[facility] Fxlpkqptxf[address] [place], [place] [address]Dr. Chrissy Frazier Eosinophils/100 WBC (Bld) 0.3 % Critically low 0.9-7.0 [facility] Comment on above: Performed By: #### C BC ####[facility] Jlgvfeflja6234 [place] [address]Dr. Chrissy Frazier Erythrocyte distribution width (RBC) [Ratio] 13.7 % Normal 11.0-15.0 [facility] Comment on above: Performed By: #### C BC ####[facility] Veazbuxmny65[address] [place] [address]Dr. Chrissy Frazier Hematocrit (Bld) [Volume fraction] 46.1 % Normal 42.0-54.0 [facility] Comment on above: Performed By: #### C BC ####[facility] Avtkxqmuow37[address] [place] [address]Dr. Chrissy Frazier Hemoglobin (Bld) [Mass/Vol] 15.4 g/dL Normal 14.0-18.0 [facility] Comment on above: Performed By: #### C BC ####[facility] Czwtfkowpm[address] [place], [place] [address]Dr. Chrissy Frazier IG # 0.11 10e3/ul Critically high 0.00-0.03 [facility] Comment on above: Performed By: #### C BC ####[facility] Yxkqtyxtri[address] [place], [place] [address]Dr. Chrissy Frazier IG % 0.6 % Critically high 0.0-0.5 [facility] [facility] Comment on above: Performed By: #### C BC ####[facility] Hgylziwpgz[address] [place], [place] [address]Dr. Chrissy Freddie LYMPH # 2.5 103/ul Normal 1.2-3.8 [facility] Comment on above: Performed By: #### C BC ####[facility] Ixgfjillkd[address] [place], [place] [address]Dr. Tishrowan Frazier Lymphocytes/100 WBC (Bld) 13.9 % Critically low 20.5-60.0 [facility] Comment on above: Performed By: #### C BC ####[facility] Wxeaeqtuai[address] [place], [place] [address]DrNancy Tishrowan Frazier MANUAL DIFF REQ NO Normal [facility] Comment on above: Performed By: #### C BC ####[facility] Vyrcwzjoou[address] [place], [place] [address]Dr. Tishrowan Frazier MCH (RBC) [Entitic mass] 28.6 pg Normal 25.9-34.0 [facility] Comment on above: Performed By: #### C BC ####[facility] Embmqhfqte5334 [place] [id number]. Chrissy Freddie MCHC (RBC) [Mass/Vol] 33.4 g/dL Normal 29.9-35.2 [facility] Comment on above: Performed By: #### C BC ####[facility] Gwzvhdlaam9183 [place] [id number] Frazier MCV (RBC) [Entitic vol] 85.7 fL Normal 80.0-94.0 [facility] Comment on above: Performed By: #### C BC ####[facility] Pqwuvnkucf9[address] [place], [place] [address]Dr. Chrissy Frazier MONO # 0.7 103/ul Normal 0.3-0.8 [facility] Comment on above: Performed By: #### C BC ####[facility] Ewvfaybmjv549[address] [place], [place] [address]Dr. Chrissy Frazier Monocytes/100 WBC (Bld) 4.0 % Normal 1.7-12.0 [facility] Comment on above: Performed By: #### C BC ####[facility] Jctadegqli54[address] [place], [place] [address]DrNancy Frazier NEUT # 14.3 103/ul Critically high 1.4-6.5 [facility] Comment on above: Performed By: #### C BC ####[facility] Qhtfbkpube03[address] [place], [place] [address]DrNancy Frazier Neutrophils/100 WBC (Bld) 80.8 % Critically high 43.0-75.0 [facility] Comment on above: Performed By: #### C BC ####[facility] Xbirgznwjh8[address] [place], [place] [id number] Frazier Platelet mean volume (Bld) [Entitic vol] 10.4 fL Normal 9.5-13.5 [facility] Comment on above: Performed By: #### C BC ####[facility] Vjhiaklavg[address] [place], [place] [address]DrNancy Frazier PLT 437 103/ul Normal 150-450 [facility] Comment on above: Performed By: #### C BC ####[facility] Ixpbiaumyh0849 [place] [address]Dr. Chrissy Frazier RBC 5.38 106/ul Normal 4.70-6.10 [facility] Comment on above: Performed By: #### C BC ####[facility] Lgejqmuxli5180 [place] [address]Dr. Chrissy Frazier WBC 17.7 103/ul Critically high 4.0-11.0 [facility] Comment on above: Performed By: #### C BC ####[facility] Gusargpzma9694 [place] [address]Dr. Chrissy Frazier CULTURE BLOODon 01-03-2023 Microscopic examination of blood, culture Culture Observations: NO GROWTH AT 5 DAYS. Normal [facility] Comment on above: Performed By: #### B LDCX1 ####[facility] Vyjohivrzx5[address] [place], [place] [address]Dr. Chrissy Frazier Performed By: #### B LDCX2 ####[facility] Fyhylbgmtw60[address] [place], [place] [address]Dr. Chrissy Frazier ECHOCARDIO M/2D COMPLETEon 0 01-03-2023 ECHOCARDIO M/2D COMPLETE Normal [facility] LACTATE/LACTIC ACIDon 2022 Lactate [Moles/Vol] 2.7 mmol/L Critically high 0.4-1.9 [facility] Comment on above: Performed By: #### L ACT ####[facility] Bzwgymtkge035[address] [place], [place] [address]Dr. Chrissy Frazier Lactate [Moles/Vol] 6.3 mmol/L Critically high 0.4-1.9 [facility] Comment on above: Performed By: #### L ACT ####[facility] Obrfkzjgoo[address] [place], [place] [address]Dr. Chrissy Frazier LIPASEon 01-03-2023 Lipase [Catalytic activity/Vol] 74.0 U/L Normal 73.0-393.0 [facility] Comment on above: Performed By: #### L IPA, TERRENCE, CMP, MG ####[facility] Fhbjicugub9408 [place] [address]Dr. Chrissy Frazier MAGNESIUMon 01-03-2023 Magnesium [Mass/Vol] 1.6 mg/dL Critically low 1.8-2.4 [facility] Comment on above: Performed By: #### L IPA, TERRENCE, CMP, MG ####[facility] Zldsbwnmje5684 [place] [address]Dr. Chrissy Frazier PROF 14(COMP METB)on 023 Albumin [Mass/Vol] 4.3 g/dL Normal 3.4-5.0 [facility] Comment on above: Performed By: #### L IPA, TERRENCE, CMP, MG ####[facility] Qtgzsinlor6871 [place] [address]Dr. Chrissy Frazier Albumin/Globulin [Mass ratio] 1.1 {ratio} Normal [facility] Comment on above: Performed By: #### L IPA, TERRENCE, CMP, MG ####[facility] Ezvwdntwyn2085 [place] [address]Dr. Chrissy Frazier ALP [Catalytic activity/Vol] 87 U/L Normal 46-116 [facility] Comment on above: Performed By: #### L IPA, TERRENCE, CMP, MG ####[facility] Qydgwvmdyr[address] [place], [place] [address]Dr. Chrissy Frazier ALT [Catalytic activity/Vol] 32 U/L Normal 16-63 [facility] Comment on above: Performed By: #### L IPA, TERRENCE, CMP, MG ####[facility] Ukrrvsgnli7235 [place] [address]Dr. Chrissy Frazier Anion gap [Moles/Vol] 24.0 mmol/L Normal [facility] Comment on above: Performed By: #### L IPA, TERRENCE, CMP, MG ####[facility] Yukpchagyb6165 [place] [address]Dr. Chrissy Frazier AST [Catalytic activity/Vol] 22 U/L Normal 15-37 [facility] Comment on above: Performed By: #### L IPA, TERRENCE, CMP, MG ####[facility] Wssobrwvhq0940 [place] [address]Dr. Chrissy Frazier Bilirubin [Mass/Vol] 0.6 mg/dL Normal 0.2-1.0 [facility] Comment on above: Performed By: #### L IPA, TERRENCE, CMP, MG ####[facility] Hartgamose5761 [place] [address]Dr. Chrissy Frazier Calcium [Mass/Vol] 9.6 mg/dL Normal 8.5-10.1 [facility] Comment on above: Performed By: #### L IPA, TERRENCE, CMP, MG ####[facility] Cgfzwcjqgo0785 [place] [address]Dr. Chrissy Frazier Chloride [Moles/Vol] 103 mmol/L Normal 98-107 [facility] Comment on above: Performed By: #### L IPA, TERRENCE, CMP, MG ####[facility] Klmqccoodi9594 [place] [address]Dr. Chrissy Frazier CO2 [Moles/Vol] 16.7 mmol/L Critically low 21.0-32.0 [facility] Comment on above: Performed By: #### L IPA, TERRENCE, CMP, MG ####[facility] Fsvxqjoobs9354 [place] [address]Dr. Chrissy Frazier Creatinine [Mass/Vol] 1.42 mg/dL Critically high 0.70-1.30 [facility] Comment on above: Performed By: #### L IPA, TERRENCE, CMP, MG ####[facility] Bzjamfpeev4782 [place] [address]Dr. Chrissy Frazier EGFR-AF LATVIAN >60 Normal >=60 [facility] Comment on above: Performed By: #### L IPA, TERRENCE, CMP, MG ####[facility] Zffrdtzbkz3303 [place] [address]Dr. Chrissy Frazier EGFR-NON AF LATVIAN 58 mL/min/1.73m2 Critically low >=60 [facility] Comment on above: Performed By: #### L IPA, TERRENCE, CMP, MG ####[facility] Zwmopgtprw6422 [place] [address]Dr. Chrissy Frazier Globulin (S) [Mass/Vol] 4.0 g/dL Normal [facility] Comment on above: Performed By: #### L IPA, TERRENCE, CMP, MG ####[facility] Qnjsdjkuin0599 [place] [address]Dr. Chrissy Frazier Glucose [Mass/Vol] 149 mg/dL Critically high 74-106 [facility] Comment on above: Performed By: #### L IPA, TERRENCE, CMP, MG ####[facility] Qnhectruik9387 [place] [address]Dr. Chrissy Frazier Potassium [Moles/Vol] 3.7 mmol/L Normal 3.5-5.1 [facility] Comment on above: Performed By: #### L IPA, TERRENCE, CMP, MG ####[facility] Zyugzobqun5286 [place] [address]Dr. Chrissy Frazier Protein [Mass/Vol] 8.3 g/dL Critically high 6.4-8.2 [facility] Comment on above: Performed By: #### L IPA, TERRENCE, CMP, MG ####[facility] Nikuupgzdl1530 [place] [address]Dr. Chrissy Frazier Sodium [Moles/Vol] 140 mmol/L Normal 136-145 [facility] Comment on above: Performed By: #### L IPA, TERRENCE, CMP, MG ####[facility] Jfjpwrxxaa3344 [place] [address]Dr. Chrissy Frazier Urea nitrogen [Mass/Vol] 16.0 mg/dL Normal 7.0-18.0 [facility] Comment on above: Performed By: #### L IPA, TERRENCE, CMP, MG ####[facility] Mmfnnovrba4982 [place] [address]Dr. Chrissy Frazier Urea nitrogen/Creatinine [Mass ratio] 11.3 mg/mg Normal [facility] Comment on above: Performed By: #### L IPA, TERRENCE, CMP, MG ####[facility] Tvstzbxvcx1949 [place] [address]Dr. Chrissy Frazier SED RATE [facility] 2022 SED RATE 37 mm/hr Critically high <=15 [facility] Comment on above: Performed By: #### S EDR ####[facility] Str[address]q46[address] [place], [place] [address]Er. Chrissy Frazier XR ABD FLAT UP_PA Enoch 01-03 XR ABD FLAT UP_PA CH Normal [facility] CT HEART CORONARY ANGIOGRAMo n 12-13-2022 CT [...] CT examination Electronically signed: Maikel Chappell. Normal [facility] Office Visiton 11-24-2022 Follow-up visit [id number] Terence Montero 1990 M Date Provider Department Center 11/24/2022 3848-RAQUEL BANKS [facility] Family History Problem Relation Age of Onset Coronary artery disease Father Heart attack Father 54 Family Status - Relation Status Age at Father Level of Service:15480 [place] OFFICE/OUTPATIENT NEW MODERATE MDM 45-59 MINUTES Reason for Visit and Comments: abnormal stress test [Other] Normal [facility] CARDIAC STRESS TESTon 2021 CARDIAC STRESS TEST Normal [facility] AMYLASEon 10-24-2022 Amylase [Catalytic activity/Vol] 26 U/L Normal 25-115 [facility] Comment on above: Performed By: #### C MP, LIPA, TERRENCE ####[facility] Lgunlmdyoy8152 [place], [place] [address]AyNancy Chrissy Frazier CBC AUTO DIFFon 10-24-2022 BASO # 0.0 103/ul Normal 0.0-0.1 [facility] Comment on above: Performed By: #### C BC ####[facility] Anzfoklsot6443 [place] [id number]. Chrissy Frazier Basophils/100 WBC (Bld) 0.2 % Normal 0.2-2.0 [facility] Comment on above: Performed By: #### C BC ####[facility] Awmzcowuqb1306 [place] [id number]. Chrissy Frazier EO # 0.1 103/ul Normal 0.0-0.7 [facility] Comment on above: Performed By: #### C BC ####[facility] Fnqvgwaili[address] [place], [place] [address]Dr. Chrissy Frazier Eosinophils/100 WBC (Bld) 0.4 % Critically low 0.9-7.0 [facility] Comment on above: Performed By: #### C BC ####[facility] Ctkorjeitq[address] [place], [place] [address]Dr. Chrissy Frazier Erythrocyte distribution width (RBC) [Ratio] 14.6 % Normal 11.0-15.0 [facility] Comment on above: Performed By: #### C BC ####[facility] Pmjvymhvtm[address] [place], [place] [address]Dr. Chrissy Frazier Hematocrit (Bld) [Volume fraction] 39.4 % Critically low 42.0-54.0 [facility] Comment on above: Performed By: #### C BC ####[facility] Y[address]rikyse[address] [place], [place] [address]Dr. Chrissy Frazier Hemoglobin (Bld) [Mass/Vol] 13.2 g/dL Critically low 14.0-18.0 [facility] Comment on above: Performed By: #### C BC ####[facility] Tpujszwosc9094 [place] [id number]. Chrissy Frazier IG # 0.07 10e3/ul Critically high 0.00-0.03 [facility] Comment on above: Performed By: #### C BC ####[facility] Adcipenwpv[address] [place], [place] [address]Dr. Chrissy Frazier IG % 0.5 % Normal 0.0-0.5 [facility] Comment on above: Performed By: #### C BC ####[facility] Gwytnsjxfh8038 [place] [id number]. Chrissy Frazier LYMPH # 3.7 103/ul Normal 1.2-3.8 [facility] Comment on above: Performed By: #### C BC ####[facility] Dmjbopatqh4119 [place], [place] [address]Si. Chrissy Frazier Lymphocytes/100 WBC (Bld) 27.0 % Normal 20.5-60.0 [facility] Comment on above: Performed By: #### C BC ####[facility] Wxlbdswjhl7323 [place] [id number]. Chrissy Freddie MANUAL DIFF REQ NO Normal [facility] Comment on above: Performed By: #### C BC ####[facility] Vrvfqlobnh5234 [place] [id number]. Chrissy Freddie MCH (RBC) [Entitic mass] 27.8 pg Normal 25.9-34.0 [facility] Comment on above: Performed By: #### C BC ####[facility] Tmnurumraj4563 [place] [id number]. Chrissy Frazier MCHC (RBC) [Mass/Vol] 33.5 g/dL Normal 29.9-35.2 [facility] Comment on above: Performed By: #### C BC ####[facility] Xpstyxrhgm4926 [place] [id number]. Chrissy Freddie MCV (RBC) [Entitic vol] 82.9 fL Normal 80.0-94.0 [facility] Comment on above: Performed By: #### C BC ####[facility] Qpavdaskzj4130 [place] [id number]. Chrissy Freddie MONO # 1.2 103/ul Critically high 0.3-0.[address] [facility] Comment on above: Performed By: #### C BC ####[facility] Oxpnbpgzlq6979 [place] [id number]. Chrissy Freddie Monocytes/100 WBC (Bld) 8.4 % Normal 1.7-12.0 [facility] Comment on above: Performed By: #### C BC ####[facility] Xxfyqjbfxu8416 [place] [id number]. Chrissy Frazier NEUT # 8.8 103/ul Critically high 1.4-6.[address] [facility] Comment on above: Performed By: #### C BC ####[facility] Jpwlzzdimf1578 [place] [id number]. Chrissy Frazier Neutrophils/100 WBC (Bld) 63.5 % Normal 43.0-75.0 [facility] Comment on above: Performed By: #### C BC ####[facility] Ujgcqdcjsd1175 [place] [id number]. Chrissy Frazier Platelet mean volume (Bld) [Entitic vol] 10.7 fL Normal 9.5-13.5 [facility] Comment on above: Performed By: #### C BC ####[facility] Kygwkiuopb4959 [place] [id number]. Chrissy Frazier PLT 291 103/ul Normal 150-450 [facility] Comment on above: Performed By: #### C BC ####[facility] Fxrezcocod5289 [place] [id number]. Chrissy Frazier RBC 4.75 106/ul Normal 4.70-6.10 [facility] Comment on above: Performed By: #### C BC ####[facility] Pnuajoeiuv2025 [place] [id number]. Chrissy Frazier WBC 13.8 103/ul Critically high 4.0-11.0 [facility] Comment on above: Performed By: #### C BC ####[facility] Cddghsrhcl7803 [place] [id number]. Chrissy Freddie LIPASEon 10-24-2022 Lipase [Catalytic activity/Vol] 44.0 U/L Critically low 73.0-393.0 [facility] Comment on above: Performed By: #### C MP, LIPA, TERRENCE ####[facility] Wmoeuqiruy3188 [place] [id number]. Chrissy Frazier PROF 14(COMP METB)on 022 Albumin [Mass/Vol] 3.4 g/dL Normal 3.4-5.0 [facility] Comment on above: Performed By: #### C MP, LIPA, TERRENCE ####[facility] Gimzeagden3741 [place] [address]Dr. Tishrowan Freddie Albumin/Globulin [Mass ratio] 0.9 {ratio} Normal [facility] Comment on above: Performed By: #### C MP, LIPA, TERRENCE ####[facility] Ihufodayaf7331 [place] [address]Dr. Chrissy Freddie ALP [Catalytic activity/Vol] 67 U/L Normal 46-116 [facility] Comment on above: Performed By: #### C MP, LIPA, TERRENCE ####[facility] Jlkckzhkcp[address] [place], [place] [address]Dr. Chrissy Frazier ALT [Catalytic activity/Vol] 25 U/L Normal 16-63 [facility] Comment on above: Performed By: #### C MP, LIPA, TERRENCE ####[facility] Knwortawgj[address] [place], [place] [address]Dr. Tishrowan Freddie Anion gap [Moles/Vol] 14.5 mmol/L Normal [facility] Comment on above: Performed By: #### C MP LIPA, TERRENCE ####[facility] Owtupffiqk[address] [place], [place] [address]Dr. Chrissy Freddie AST [Catalytic activity/Vol] 17 U/L Normal 15-37 [facility] Comment on above: Performed By: #### C MP, LIPA, TERRENCE ####[facility] Qyjhvmndwn150[address] [place], [place] [address]Dr. Chrissy Frazier Bilirubin [Mass/Vol] 0.5 mg/dL Normal 0.2-1.0 [facility] Comment on above: Performed By: #### C MP, LIPA, TERRENCE ####[facility] Hmbtsnmmgg[address] [place], [place] [address]Dr. Chrissy Frazier Calcium [Mass/Vol] 8.6 mg/dL Normal 8.5-10.1 [facility] Comment on above: Performed By: #### C MP, LIPA, TERRENCE ####[facility] [address]jipykj[address] [place], [place] [address]Dr. Chrissy Frazier Chloride [Moles/Vol] 106 mmol/L Normal 98-107 [facility] Comment on above: Performed By: #### C OSWALD ADAIR AMY ####[facility] Sdontacbfy4810 [place] [address]Dr. Chrissy Frazier CO2 [Moles/Vol] 22.8 mmol/L Normal 21.0-32.0 [facility] Comment on above: Performed By: #### C OSWALD ADAIR, TERRENCE ####[facility] Ewshmvqpaa46[address] [place], [place] [address]Dr. Chrissy Frazier Creatinine [Mass/Vol] 0.98 mg/dL Normal 0.70-1.30 [facility] Comment on above: Performed By: #### C OSWALD ADAIR AMY ####[facility] Xrjtkytltj[address] [place], [place] [address]Dr. Chrissy Frazier EGFR-AF LATVIAN >60 Normal >=60 [facility] Comment on above: Performed By: #### C OSWALD ADAIR TERRENCE ####[facility] Mygxitiyub25[address] [place], [place] [address]Dr. Chrissy Frazier EGFR-NON AF LATVIAN >60 Normal >=60 [facility] Comment on above: Performed By: #### C OSWALD ADAIR TERRENCE ####[facility] Ckhrlraboz8684 [place] [address]Dr. Chrissy Frazier Globulin (S) [Mass/Vol] 3.7 g/dL Normal [facility] Comment on above: Performed By: #### C OSWALD ADAIR TERRENCE ####[facility] Aooahtsldu7742 [place] [address]Dr. Chrissy Frazier Glucose [Mass/Vol] 115 mg/dL Critically high 74-106 [facility] Comment on above: Performed By: #### C OSWALD ADAIR, TERRENCE ####[facility] Ibajwjrnyq[address] [place], [place] [address]Dr. Chrissy Frazier Potassium [Moles/Vol] 3.3 mmol/L Critically low 3.5-5.1 [facility] Comment on above: Performed By: #### C TESSA ADAIRA, TERRENCE ####[facility] Ryloxijtxc3063 [place] [address]Dr. Chrissy Frazier Protein [Mass/Vol] 7.1 g/dL Normal 6.4-8.2 [facility] Comment on above: Performed By: #### C MP, LIPA, TERRENCE ####[facility] Okgziftdel[address] [place], [place] [address]Dr. Chrissy Frazier Sodium [Moles/Vol] 140 mmol/L Normal 136-145 [facility] Comment on above: Performed By: #### C MP, LIPA, TERRENCE ####[facility] Eopbadelmv[address] [place], [place] [address]Dr. Chrissy Frazier Urea nitrogen [Mass/Vol] 10.0 mg/dL Normal 7.0-18.0 [facility] Comment on above: Performed By: #### C MP, LIPA, TERRENCE ####[facility] Uopylzhuti84[address] [place], [place] [address]Dr. Chrissy Frazier Urea nitrogen/Creatinine [Mass ratio] 10.2 mg/mg Normal [facility] Comment on above: Performed By: #### C MP, LIPA, TERRENCE ####[facility] Egflpheqhg[address] [place], [place] [address]Dr. Chrissy Frazier AMYLASEon 10-23-2022 Amylase [Catalytic activity/Vol] 31 U/L Normal 25-115 [facility] Comment on above: Performed By: #### C MP, LIPA, TERRENCE ####[facility] Oggncvjsnt[address] [place], [place] [address]Dr. Chrissy Frazier CBC AUTO DIFFon 10-23-2022 BASO # 0.1 103/ul Normal 0.0-0.1 [facility] Comment on above: Performed By: #### C BC ####[facility] Hawzhipvyi[address] [place], [place] [address]Dr. Chrissy Frazier Basophils/100 WBC (Bld) 0.3 % Normal 0.2-2.0 [facility] Comment on above: Performed By: #### C BC ####[facility] Dfqgddlecg[address] [place], [place] [address]Dr. Chrissy Frazier EO # 0.1 103/ul Normal 0.0-0.7 [facility] Comment on above: Performed By: #### C BC ####[facility] Fykwtyckkv8269 [place] [address]Dr. Chrissy Frazier Eosinophils/100 WBC (Bld) 0.3 % Critically low 0.9-7.0 [facility] Comment on above: Performed By: #### C BC ####[facility] Raqudsxxpz3582 [place] [address]Dr. Chrissy Frazier Erythrocyte distribution width (RBC) [Ratio] 14.5 % Normal 11.0-15.0 [facility] Comment on above: Performed By: #### C BC ####[facility] Otrchismdl2973 [place] [address]Dr. Chrissy Frazier Hematocrit (Bld) [Volume fraction] 44.0 % Normal 42.0-54.0 [facility] Comment on above: Performed By: #### C BC ####[facility] Kmckesdkxi5096 [place] [address]Dr. Chrissy Frazier Hemoglobin (Bld) [Mass/Vol] 14.8 g/dL Normal 14.0-18.0 [facility] Comment on above: Performed By: #### C BC ####[facility] Jtyisqrgop9453 [place] [address]Dr. Chrissy Frazier IG # 0.09 10e3/ul Critically high 0.00-0.03 [facility] Comment on above: Performed By: #### C BC ####[facility] Unhzdepluv[address] [place] [address]Dr. Chrissy Frazier IG % 0.5 % Normal 0.0-0.5 The [facility] Comment on above: Performed By: #### C BC ####[facility] Ggdbbekqfh6[address] [place] [address]Dr. Chrissy Frazier LYMPH # 3.6 103/ul Normal 1.2-3.8 The [facility] Comment on above: Performed By: #### C BC ####[facility] Qeujwinnen8184 [place] [address]Dr. Tishrowan Frazier Lymphocytes/100 WBC (Bld) 19.4 % Critically low 20.5-60.0 The [facility] Comment on above: Performed By: #### C BC ####[facility] Zzzrbnnhft04[address] [place] [address]Dr. Tishrowan Frazier MANUAL DIFF REQ NO Normal [facility] Comment on above: Performed By: #### C BC ####[facility] Lnucwdclaz13[address] [place] [address]Dr. Chrissy Freddie MCH (RBC) [Entitic mass] 28.1 pg Normal 25.9-34.0 The [facility] Comment on above: Performed By: #### C BC ####[facility] Xjnjumwwez68[address] [place], [place] [address]Dr. Chrissy Frazier MCHC (RBC) [Mass/Vol] 33.6 g/dL Normal 29.9-35.2 The [facility] Comment on above: Performed By: #### C BC ####[facility] Rzgulioyqy85[address] [place], [place] [address]Dr. Chrissy Frazier MCV (RBC) [Entitic vol] 83.5 fL Normal 80.0-94.0 The [facility] Comment on above: Performed By: #### C BC ####[facility] Waakarpnpz[address] [place], [place] [address]Dr. Chrissy Frazier MONO # 0.9 103/ul Critically high 0.3-0.[address] [facility] Comment on above: Performed By: #### C BC ####[facility] Fwouvtnkus[address] [place], [place] [address]Dr. Chrissy Frazier Monocytes/100 WBC (Bld) 4.9 % Normal 1.7-12.0 The [facility] Comment on above: Performed By: #### C BC ####[facility] Iqnijuuqrc06[address] [place], [place] [address]Dr. Chrissy Frazier NEUT # 13.9 103/ul Critically high 1.4-6.5 [facility] Comment on above: Performed By: #### C BC ####[facility] Xozzswaaua76[address] [place] [id number]. Chrissy Frazier Neutrophils/100 WBC (Bld) 74.6 % Normal 43.0-75.0 The [facility] Comment on above: Performed By: #### C BC ####[facility] Wmrryecgkl9525 [place] [id number]. Chrissy Frazier Platelet mean volume (Bld) [Entitic vol] 10.5 fL Normal 9.5-13.5 The [facility] Comment on above: Performed By: #### C BC ####[facility] Gjbhbvmbeg3171 [place] [id number]. Chrissy Frazier PLT 402 103/ul Normal 150-450 The [facility] Comment on above: Performed By: #### C BC ####[facility] Yavcdasymg420[address] [place], [place] [address]Dr. Chrissy Frazier RBC 5.27 106/ul Normal 4.70-6.10 The [facility] Comment on above: Performed By: #### C BC ####[facility] Mdblspxzwk7939[address] [place], [place] [address]Dr. Chrissy Frazier WBC 18.6 103/ul Critically high 4.0-11.0 [facility] Comment on above: Performed By: #### C BC ####[facility] Wendtughxv[address] [place], [place] [id number]. Chrissy Frazier CULTURE BLOODon 10-23-2022 Microscopic examination of blood, culture Culture Observations: NO GROWTH AT 5 DAYS. Normal [facility] Comment on above: Performed By: #### B LDCX2 ####[facility] Dmjnhgtfbt2168 [place] [id number]. Chrissy Frazier Microscopic examination of blood, culture Culture Observations: NO GROWTH AT 5 DAYS. Normal [facility] Comment on above: Performed By: #### B LDCX1 ####[facility] Guendjjfvk[address] [place], [place] [id number]. Chrissy Frazier CULTURE URINEon 10-23-2022 CULTURE URINE Culture Observations: NO GROWTH. Normal [facility] Comment on above: Performed By: #### U RCX ####[facility] Scazdhfeni104[address] [place], [place] [address]Dr. Chrissy Frazier Covid-19 PCR (CVDTB)on SARS-CoV-2 (COVID-19) RNA RHIANNON+probe Ql (Unsp spec) Not detected Normal NOT DETECTED The [facility] Comment on above: Result Comment: When diagnostic [...] for this test is supported by the [employer] of [employer] and Human Service's declaration that [...] be used). Performed By: #### C VDTBH ####[facility] Mlniwtxxyu[address] [place] [address]. Chrissy Frazier INFLUENZA A AND B AGon 10-23 INFLUANEGH SEE BELOW Normal The [facility] Comment on above: Result Comment: Nega tive for Flu A protein angiten. Infection due to Flu A cannot be ruled out. Flu A angiten in the sample may be below the detection limit of the test. Performed By: #### I NFLUAB ####[facility] Zxefatrqcx68[address] [place], [place] [address]Dr. Chrissy Frazier INFLUBNEGH SEE BELOW Normal The [facility] Comment on above: Result Comment: Nega tive for Flu B protein antigen. Infection due to Flu B cannot be ruled out. Flu B antigen in the sample may be below the detection limit of the test. Performed By: #### I NFLUAB ####[facility] Johaqviwja5210[address] [place], [place] [address]Dr. Chrissy [facility] INFLUENZA A AG Negative Normal NEGATIVE SEE COMMENT The [facility] Comment on above: Performed By: #### I NFLUAB ####[facility] Sqlobwvkhc6232 [place] [address]Dr. Chrissy Frazier INFLUENZA B AG Negative Normal NEGATIVE SEE COMMENT The [facility] Comment on above: Performed By: #### I NFLUAB ####[facility] Oyhxmfumco7[address] [place] [address]Dr. Chrissy Frazier INTERNAL CONTROLS Within Normal Limits Normal Wi thin Normal Limits The [facility] Comment on above: Performed By: #### I NFLUAB ####[facility] Twpskhmrdg467[address] [place], [place] [address]Dr. Chrissy Frazier LACTATE/LACTIC ACIDon 2021 Lactate [Moles/Vol] 2.1 mmol/L Critically high 0.4-1.9 [facility] Comment on above: Performed By: #### L ACT ####[facility] Tefdtuqqgz24[address] [place], [place] [address]Dr. Chrissy Frazier Lactate [Moles/Vol] 6.9 mmol/L Critically high 0.4-1.9 [facility] Comment on above: Performed By: #### L ACT ####[facility] Qahajfvyuf299[address] [place], [place] [address]Dr. Chrissy Frazier LIPASEon 10-23-2022 Lipase [Catalytic activity/Vol] 72.0 U/L Critically low 73.0-393.0 [facility] Comment on above: Performed By: #### C OSWALD ADAIR AMY ####[facility] Kjqxkeqdrn[address] [place], [place] [address]Dr. Chrissy Frazier PROF 14(COMP METB)on 022 Albumin [Mass/Vol] 3.9 g/dL Normal 3.4-5.0 The [facility] Comment on above: Performed By: #### C OSWALD ADAIR AMY ####[facility] Xcxrukynok4834[address] [place], [place] [address]Dr. Chrissy Frazier Albumin/Globulin [Mass ratio] 0.9 {ratio} Normal [facility] Comment on above: Performed By: #### C OSWALD ADAIR AMY ####[facility] Gbiybviqcb2532 [place] [address]Dr. Chrissy Frazier ALP [Catalytic activity/Vol] 82 U/L Normal 46-116 The [facility] Comment on above: Performed By: #### C MP, LIPA, TERRENCE ####[facility] Nkkiwmdcwr4474 [place] [address]Dr. Chrissy Frazier ALT [Catalytic activity/Vol] 25 U/L Normal 16-63 The [facility] Comment on above: Performed By: #### C MP, LIPA, TERRENCE ####[facility] Ncfnybbqvh8024 [place] [address]Dr. Chrissy Frazier Anion gap [Moles/Vol] 18.1 mmol/L Normal [facility] Comment on above: Performed By: #### C MP, LIPA, TERRENCE ####[facility] Myarrwqqrn25[address] [place], [place] [address]Dr. Chrissy Frazier AST [Catalytic activity/Vol] 17 U/L Normal 15-37 [facility] Comment on above: Performed By: #### C MP, LIPA, TERRENCE ####[facility] Flgrjuvwzi[address] [place], [place] [address]Dr. Chrissy Frazier Bilirubin [Mass/Vol] 0.5 mg/dL Normal 0.2-1.0 [facility] Comment on above: Performed By: #### C MP, LIPA, TERRENCE ####[facility] Fftrlxrhps5[address] [place] [address]Dr. Chrisys Frazier Calcium [Mass/Vol] 9.1 mg/dL Normal 8.5-10.1 [facility] Comment on above: Performed By: #### C MP, LIPA, TERRENCE ####[facility] Sulfzfukgd4204 [place] [address]Dr. Chrissy Frazier Chloride [Moles/Vol] 101 mmol/L Normal 98-107 [facility] Comment on above: Performed By: #### C MP, LIPA, TERRENCE ####[facility] Kyggaoqxjr0593 [place] [address]Dr. Chrissy Frazier CO2 [Moles/Vol] 19.2 mmol/L Critically low 21.0-32.0 [facility] Comment on above: Performed By: #### C OSWALD ADAIR, TERRENCE ####[facility] Vtssjnvskt53[address] [place] [address]Dr. Chrissy Frazier Creatinine [Mass/Vol] 1.72 mg/dL Critically high 0.70-1.30 [facility] Comment on above: Performed By: #### C TESSA ADAIRA, TERRENCE ####[facility] Ibldoielie60[address] [place] [address]Dr. Chrissy Frazier EGFR-AF LATVIAN 56 mL/min/1.73m2 Critically low >=60 [facility] Comment on above: Performed By: #### C OSWALD ADAIR, TERRENCE ####[facility] Xtljumcnfn82[address] [place], [place] [address]Dr. Chrissy Frazier EGFR-NON AF LATVIAN 46 mL/min/1.73m2 Critically low >=60 [facility] Comment on above: Performed By: #### C MANA LIPA, ETRRENCE ####[facility] Vnlyjxzuvk6[address] [place], [place] [address]Dr. Chrissy Frazier Globulin (S) [Mass/Vol] 4.2 g/dL Normal [facility] Comment on above: Performed By: #### C OSWALD ADAIR, TERRENCE ####[facility] Xibfnbjiva4082 [place] [address]Dr. Chrissy Frazier Glucose [Mass/Vol] 126 mg/dL Critically high 74-106 [facility] Comment on above: Performed By: #### C MANA LIPA, TERRENCE ####[facility] Teityfymca5134 [place] [address]Dr. Chrissy Frazier Potassium [Moles/Vol] 3.3 mmol/L Critically low 3.5-5.1 [facility] Comment on above: Performed By: #### C MANA LIPA, TERRENCE ####[facility] Giluyzvpjk39[address] [place] [address]Dr. Tishrowan Frazier Protein [Mass/Vol] 8.1 g/dL Normal 6.4-8.2 [facility] Comment on above: Performed By: #### C MANA LIPA, TERRENCE ####[facility] Vchkyulnkz5089 [place] [address]Dr. Chrissy Frazier Sodium [Moles/Vol] 135 mmol/L Critically low 136-145 Th e [facility] Comment on above: Performed By: #### C MANA LIPA, TERRENCE ####[facility] Mokclnmzlc[address] [place], [place] [address]Dr. Chrissy Frazier Urea nitrogen [Mass/Vol] 13.0 mg/dL Normal 7.0-18.0 [facility] Comment on above: Performed By: #### C MANA LIPA, TERRENCE ####[facility] Jircjlcuzk7[address] [place], [place] [address]Dr. Chrissy Frazier Urea nitrogen/Creatinine [Mass ratio] 7.6 mg/mg Normal The [facility] Comment on above: Performed By: #### C MANA LIPBean, TERRENCE ####[facility] Weiflvkrhq[address] [place], [place] [address]Dr. Chrissy Frazier UA RANDOM W/MICROSCOPICon BACTERIA NONE SEEN Normal NONE SEEN The [facility] Comment on above: Performed By: #### U AMIC ####[facility] Gvnzhhqucy[address] [place], [place] [address]Dr. Chrissy Frazier Bilirubin Ql (U) Negative Normal NEGATIVE The [facility] Comment on above: Performed By: #### U AMIC ####[facility] Zajghzzfzb017[address] [place], [place] [address]Dr. Chrissy Frazier CAST NONE SEEN Normal NONE SEEN The [facility] Comment on above: Performed By: #### U AMIC ####[facility] Ndlmizwtud[address] [place], [place] [address]Dr. Chrissy Frazier Clarity (U) CLEAR Normal CLEAR The [facility] Comment on above: Performed By: #### U AMIC ####[facility] Hstomkvjwy[address] [place], [place] [address]Dr. Chrissy Frazier Color (U) LT. YELLOW Normal YELLOW The [facility] Comment on above: Performed By: #### U AMIC ####[facility] Ywucezeltg830[address] [place], [place] [address]Dr. Chrissy Frazier Crystals LM Nom (Urine sed) NONE SEEN Normal NONE SEEN The [facility] Comment on above: Performed By: #### U AMIC ####[facility] Hedfhojcll8[address] [place], [place] [address]Dr. Chrissy Frazier Epithelial cells LM Ql (Urine sed) FEW Abnormal NONE SEEN /RARE The [facility] Comment on above: Performed By: #### U AMIC ####[facility] Lrdfmzduxs214[address] [place], [place] [address]Dr. Chrissy Frazier Glucose Ql (U) Negative Normal NEGATIVE [facility] Comment on above: Performed By: #### U AMIC ####[facility] Yxmanyhvhx35[address] [place], [place] [address]Dr. Chrissy Frazier Hemoglobin Ql (U) Negative Normal NEGATIVE [facility] Comment on above: Performed By: #### U AMIC ####[facility] Zdggvnjwlz3567[address] [place], [place] [address]Dr. Chrissy Frazier Ketones Ql (U) 15 mg/dl Abnormal NEGATIVE [facility] Comment on above: Performed By: #### U AMIC ####[facility] Jthjxogjka[address] [place], [place] [address]Dr. Chrissy Frazier LEUKOCYTES Negative Normal NEGATIVE The [facility] Comment on above: Performed By: #### U AMIC ####[facility] Ckkisngvwv639[address] [place], [place] [address]Dr. Chrissy Frazier MUCOUS NONE SEEN Normal NONE SEEN The [facility] Comment on above: Performed By: #### U AMIC ####[facility] Mffmbnaycd4030[address] [place], [place] [address]Dr. Chrissy Frazier Nitrite Ql (U) Negative Normal NEGATIVE [facility] Comment on above: Performed By: #### U AMIC ####[facility] Bljsnjeyeh[address] [place], [place] [address]Dr. Chrissy Frazier pH (U) 6.0 [pH] Normal 5-9 The [facility] Comment on above: Performed By: #### U AMIC ####[facility] Qbeqjajhjp633[address] [place], [place] [address]Dr. Chrissy Frazier RBC 0-2 Normal 0-2 The [facility] Comment on above: Performed By: #### U AMIC ####[facility] Bdlgcnaslh045[address] [place] [id number]. Chrissy Frazier SPEC GRAVITY 1.010 Normal 1.005-<=1.[address] [facility] Comment on above: Performed By: #### U AMIC ####[facility] Geocejksyt78[address] [place] [address]Dr. Chrissy Freddie UA PROTEIN Negative Normal NEGATIVE/ TRACE [facility] Comment on above: Performed By: #### U AMIC ####[facility] Oqxtucibef6430 [place] [id number]. Chrissy Freddie Urobilinogen Qn (U) 0.2 {Estrellita'U}/dL Normal 0.2 - 1. 0 The [facility] Comment on above: Performed By: #### U AMIC ####[facility] Eesmdhumbx35[address] [place], [place] [address]Dr. hCrissy Freddie WBC NONE SEEN Normal NONE SEEN The [facility] Comment on above: Performed By: #### U AMIC ####[facility] Huedlbphdk[address] [place], [place] [address]Dr. Chrissy Freddie AMYLASEon 10-22-2022 Amylase [Catalytic activity/Vol] 28 U/L Normal 25-115 The [facility] Comment on above: Performed By: #### L IPA, CMP, TERRENCE ####[facility] Crzjqqtnap340[address] [place], [place] [address]Dr. Chrissy Freddie CBC AUTO DIFFon 10-22-2022 BASO # 0.0 103/ul Normal 0.0-0.1 The [facility] Comment on above: Performed By: #### C BC ####[facility] Elqsrgridj76[address] [place], [place] [address]Dr. Tishrowan Frazier Basophils/100 WBC (Bld) 0.2 % Normal 0.2-2.0 The [facility] Comment on above: Performed By: #### C BC ####[facility] Jlpdfwhiix4625[address] [place], [place] [address]Dr. Chrissy Frazier EO # 0.0 103/ul Normal 0.0-0.7 The [facility] Comment on above: Performed By: #### C BC ####[facility] Xvosyztdtq867[address] [place], [place] [address]Dr. Chrissy Frazier Eosinophils/100 WBC (Bld) 0.1 % Critically low 0.9-7.0 The [facility] Comment on above: Performed By: #### C BC ####[facility] Xqyhuycvnw[address] [place], [place] [address]Dr. Chrissy Frazier Erythrocyte distribution width (RBC) [Ratio] 14.4 % Normal 11.0-15.0 The [facility] Comment on above: Performed By: #### C BC ####[facility] Qgnrkhpifr601[address] [place], [place] [address]Dr. Chrissy Frazier Hematocrit (Bld) [Volume fraction] 45.2 % Normal 42.0-54.0 [facility] Comment on above: Performed By: #### C BC ####[facility] Frbsjigygj408[address] [place], [place] [address]Dr. Chrissy Frazier Hemoglobin (Bld) [Mass/Vol] 15.4 g/dL Normal 14.0-18.0 [facility] Comment on above: Performed By: #### C BC ####[facility] Dhsyluwyvh48[address] [place], [place] [address]Dr. Tishrowan Freddie IG # 0.07 10e3/ul Critically high 0.00-0.03 [facility] Comment on above: Performed By: #### C BC ####[facility] Roizxmdvgk787[address] [place], [place] [address]Dr. Chrissy Frazier IG % 0.4 % Normal 0.0-0.5 The [facility] Comment on above: Performed By: #### C BC ####[facility] Rcliissnuw8722[address] [place], [place] [address]Dr. Chrissy Frazier LYMPH # 2.0 103/ul Normal 1.2-3.8 [facility] Comment on above: Performed By: #### C BC ####[facility] Opfgyjytvc040[address] [place], [place] [address]DrNancy Frazier Lymphocytes/100 WBC (Bld) 12.2 % Critically low 20.5-60.0 The [facility] Comment on above: Performed By: #### C BC ####[facility] Vxwfhifanl[address] [place] [address]DrNancy Frazier MANUAL DIFF REQ NO Normal [facility] Comment on above: Performed By: #### C BC ####[facility] Lfzfztsswp6594 [place] [address]DrNancy Frazier MCH (RBC) [Entitic mass] 28.3 pg Normal 25.9-34.0 [facility] Comment on above: Performed By: #### C BC ####[facility] Phkqcrfhgm020[address] [place], [place] [address]DrNancy Frazier MCHC (RBC) [Mass/Vol] 34.1 g/dL Normal 29.9-35.2 The [facility] Comment on above: Performed By: #### C BC ####[facility] Ckzfdoxxmq[address] [place], [place] [address]DrNancy Frazier MCV (RBC) [Entitic vol] 82.9 fL Normal 80.0-94.0 [facility] Comment on above: Performed By: #### C BC ####[facility] Eyrtjdkqfs0864[address] [place], [place] [address]DrNancy Frazier MONO # 0.3 103/ul Normal 0.3-0.8 The [facility] Comment on above: Performed By: #### C BC ####[facility] Fxyyovysuq05[address] [place], [place] [address]DrNancy Frazier Monocytes/100 WBC (Bld) 2.0 % Normal 1.7-12.0 The [facility] Comment on above: Performed By: #### C BC ####[facility] Lotibapwqe12[address] [place], [place] [address]DrNancy Frazier NEUT # 14.0 103/ul Critically high 1.4-6.5 [facility] Comment on above: Performed By: #### C BC ####[facility] Qazcdhdrjv9[address] [place], [place] [address]DrNancy Frazier Neutrophils/100 WBC (Bld) 85.1 % Critically high 43.0-75.0 The [facility] Comment on above: Performed By: #### C BC ####[facility] Onsijimjew[address] [place] [address]Dr. Chrissy Frazier Platelet mean volume (Bld) [Entitic vol] 10.6 fL Normal 9.5-13.5 The [facility] Comment on above: Performed By: #### C BC ####[facility] Zaqiblmsff5995 [place] [address]Dr. Chrissy Frazier PLT 411 103/ul Normal 150-450 [facility] Comment on above: Performed By: #### C BC ####[facility] Szovqdvojt24[address] [place], [place] [address]Dr. Chrissy Frazier RBC 5.45 106/ul Normal 4.70-6.10 The [facility] Comment on above: Performed By: #### C BC ####[facility] Nloxjamrud24[address] [place], [place] [address]DrNancy Chrissy Frazier WBC 16.5 103/ul Critically high 4.0-11.0 [facility] Comment on above: Performed By: #### C BC ####[facility] Oljbmbrbvh[address] [place], [place] [address]DrNancy Chrissy Frazier LIPASEon 10-22-2022 Lipase [Catalytic activity/Vol] 57.0 U/L Critically low 73.0-393.0 [facility] Comment on above: Performed By: #### L IPA CMP, TERRENCE ####[facility] Ctrhslmxkl6197 [place] [address]DrNancy Tishrowan Frazier PROF 14(COMP METB)on 022 Albumin [Mass/Vol] 4.2 g/dL Normal 3.4-5.0 [facility] Comment on above: Performed By: #### L IPA CMP, TERRENCE ####[facility] Fekukkwqxh8814 [place] [address]DrNancy Chrissy Freddie Albumin/Globulin [Mass ratio] 1.0 {ratio} Normal [facility] Comment on above: Performed By: #### L IPA CMP, TERRENCE ####[facility] Zehtkkoouq45[address] [place] [address]Dr. Chrissy Frazier ALP [Catalytic activity/Vol] 92 U/L Normal 46-116 [facility] Comment on above: Performed By: #### L IPA, CMP, TERRENCE ####[facility] Fcdpwbznet6[address] [place] [address]Dr. Chrissy Frazier ALT [Catalytic activity/Vol] 26 U/L Normal 16-63 [facility] Comment on above: Performed By: #### L IPA, CMP, TERRENCE ####[facility] Zpwmlsfhxo[address] [place] [id number]. Chrissy Frazier Anion gap [Moles/Vol] 19.5 mmol/L Normal [facility] Comment on above: Performed By: #### L IPA, CMP, TERRENCE ####[facility] Qgfuovbkbc9[address] [place], [place] [address]Dr. Chrissy Frazier AST [Catalytic activity/Vol] 19 U/L Normal 15-37 [facility] Comment on above: Performed By: #### L IPA, CMP, TERRENCE ####[facility] Gqtpajctcw67[address] [place], [place] [address]Dr. Chrissy Frazier Bilirubin [Mass/Vol] 0.7 mg/dL Normal 0.2-1.0 [facility] Comment on above: Performed By: #### L IPA, CMP, TERRENCE ####[facility] Cypxdihtzw[address] [place], [place] [address]Dr. Chrissy Frazier Calcium [Mass/Vol] 9.6 mg/dL Normal 8.5-10.1 [facility] Comment on above: Performed By: #### L IPA, CMP, TERRENCE ####[facility] Wmxofwojvl06[address] [place] [address]Dr. Chrissy Frazier Chloride [Moles/Vol] 102 mmol/L Normal 98-107 [facility] Comment on above: Performed By: #### L IPA, CMP, TERRENCE ####[facility] Ikzpuzkncj11[address] [place] [address]Dr. Chrissy Frazier CO2 [Moles/Vol] 19.1 mmol/L Critically low 21.0-32.0 [facility] Comment on above: Performed By: #### L IPA, CMP, TERRENCE ####[facility] Aizhlnrvgr8887 [place] [address]Dr. Chrissy Freddie Creatinine [Mass/Vol] 1.47 mg/dL Critically high 0.70-1.30 [facility] Comment on above: Performed By: #### L IPA, CMP, TERRENCE ####[facility] Mevrkjnmpv3[address] [place] [address]Dr. Tishrowan Freddie EGFR-AF LATVIAN >60 Normal >=60 [facility] Comment on above: Performed By: #### L IPA, CMP, TERRENCE ####[facility] Odlgvxeeld058[address] [place], [place] [address]Dr. Chrissy Frazier EGFR-NON AF LATVIAN 56 mL/min/1.73m2 Critically low >=60 [facility] Comment on above: Performed By: #### L IPA, CMP, TERRENCE ####[facility] Tifuaqddkq422[address] [place], [place] [address]Dr. Chrissy Frazier Globulin (S) [Mass/Vol] 4.3 g/dL Normal [facility] Comment on above: Performed By: #### L IPA CMP, TERRENCE ####[facility] Shotosswps246[address] [place], [place] [address]Dr. Chrissy Frazier Glucose [Mass/Vol] 189 mg/dL Critically high 74-106 [facility] Comment on above: Performed By: #### L IPA, CMP, TERRENCE ####[facility] Otojxgcafu229[address] [place], [place] [address]Dr. Chrissy Frazier Potassium [Moles/Vol] 4.6 mmol/L Normal 3.5-5.1 [facility] Comment on above: Performed By: #### L IPA, CMP, TERRENCE ####[facility] Njbpmowncf608[address] [place], [place] [address]Dr. Chrissy Frazier Protein [Mass/Vol] 8.5 g/dL Critically high 6.4-8.2 [facility] Comment on above: Performed By: #### L IPA, CMP, TERRENCE ####[facility] Wpkpihyxso64[address] [place], [place] [id number]. Chrissy Frazier Sodium [Moles/Vol] 136 mmol/L Normal 136-145 [facility] Comment on above: Performed By: #### L IPA CMP, TERRENCE ####[facility] Gjpgosvzge3057 [place] [address]Dr. Chrissy Frazier Urea nitrogen [Mass/Vol] 16.0 mg/dL Normal 7.0-18.0 [facility] Comment on above: Performed By: #### L IPA CMP, TERRENCE ####[facility] Szclsmllbg049[address] [place], [place] [address]Dr. Chrissy Frazier Urea nitrogen/Creatinine [Mass ratio] 10.9 mg/mg Normal [facility] Comment on above: Performed By: #### L IPA CMP, TERRENCE ####[facility] Lorkphhhbu9423[address] [place], [place] [address]Dr. Chrissy Freddie AMYLASEon 09-03-2022 Amylase [Catalytic activity/Vol] 25 U/L Normal 25-115 [facility] Comment on above: Performed By: #### L IPA TERRENCE, CMP ####[facility] Pknpuppnjp6036[address] [place], [place] [address]Dr. Chrissy Freddie CBC AUTO DIFFon 09-03-2022 BASO # 0.0 103/ul Normal 0.0-0.1 [facility] Comment on above: Performed By: #### C BC ####[facility] Lwtlisyxcv0810[address] [place], [place] [address]Dr. Chrissy Freddie Basophils/100 WBC (Bld) 0.1 % Critically low 0.2-2.0 [facility] Comment on above: Performed By: #### C BC ####[facility] Kbxvisyhgf026[address] [place], [place] [address]Dr. Tishrowan Frazier EO # 0.0 103/ul Normal 0.0-0.7 [facility] Comment on above: Performed By: #### C BC ####[facility] Zdyxbopvmp578[address] [place], [place] [address]Dr. Tishrowan Ferddie Eosinophils/100 WBC (Bld) 0.1 % Critically low 0.9-7.0 [facility] Comment on above: Performed By: #### C BC ####[facility] Otjwiarjzt1500 [place] [address]Dr. Chrissy Frazier Erythrocyte distribution width (RBC) [Ratio] 14.0 % Normal 11.0-15.0 [facility] Comment on above: Performed By: #### C BC ####[facility] Vlwttdunhp22[address] [place], [place] [address]Dr. Chrissy Frazier Hematocrit (Bld) [Volume fraction] 42.5 % Normal 42.0-54.0 [facility] Comment on above: Performed By: #### C BC ####[facility] Ohsrrqkbej335[address] [place], [place] [address]Dr. Chrissy Frazier Hemoglobin (Bld) [Mass/Vol] 14.1 g/dL Normal 14.0-18.0 [facility] Comment on above: Performed By: #### C BC ####[facility] Zyktglofzs437[address] [place], [place] [address]Dr. Chrissy Frazier IG # 0.06 10e3/ul Critically high 0.00-0.03 [facility] Comment on above: Performed By: #### C BC ####[facility] Lqnofkcwsz0838[address] [place], [place] [address]Dr. Chrissy Frazier IG % 0.4 % Normal 0.0-0.5 [facility] Comment on above: Performed By: #### C BC ####[facility] Ioagomghey9[address] [place], [place] [address]Dr. Chrissy Frazier LYMPH # 2.5 103/ul Normal 1.2-3.8 [facility] Comment on above: Performed By: #### C BC ####[facility] Uwdehjnexd3828[address] [place], [place] [address]Dr. Chrissy Frazier Lymphocytes/100 WBC (Bld) 16.3 % Critically low 20.5-60.0 [facility] Comment on above: Performed By: #### C BC ####[facility] Lzpnfoiaec25[address] [place], [place] [address]Dr. Chrissy Frazier MANUAL DIFF REQ NO Normal [facility] Comment on above: Performed By: #### C BC ####[facility] Lrajloqxjs0816 [place] [id number]. Chrissy Freddie MCH (RBC) [Entitic mass] 28.1 pg Normal 25.9-34.0 [facility] Comment on above: Performed By: #### C BC ####[facility] Gatvnteoxz5494 [place] [id number]. Chrissy Freddie MCHC (RBC) [Mass/Vol] 33.2 g/dL Normal 29.9-35.2 [facility] Comment on above: Performed By: #### C BC ####[facility] Oyvwdarphv4257 [place] [address]Dr. Chrissy Freddie MCV (RBC) [Entitic vol] 84.8 fL Normal 80.0-94.0 [facility] Comment on above: Performed By: #### C BC ####[facility] Ofvbicibdn89[address] [place], [place] [address]DrNancy Frazier MONO # 1.1 103/ul Critically high 0.3-0.[address] [facility] Comment on above: Performed By: #### C BC ####[facility] Yentkugspc1635[address] [place], [place] [address]Dr. Tishrowan Frazier Monocytes/100 WBC (Bld) 7.4 % Normal 1.7-12.0 [facility] Comment on above: Performed By: #### C BC ####[facility] Xzbktpcfgt34[address] [place], [place] [address]Dr. Chrissy Frazier NEUT # 11.5 103/ul Critically high 1.4-6.5 [facility] Comment on above: Performed By: #### C BC ####[facility] Bmobghdwah[address] [place], [place] [id number] Frazier Neutrophils/100 WBC (Bld) 75.7 % Critically high 43.0-75.0 [facility] Comment on above: Performed By: #### C BC ####[facility] Mlcqjcnqrb9124 [place] [address]DrNancy Frazier Platelet mean volume (Bld) [Entitic vol] 10.6 fL Normal 9.5-13.5 [facility] Comment on above: Performed By: #### C BC ####[facility] Yudozuroyr5369 [place] [address]Dr. Chrissy Frazier PLT 310 103/ul Normal 150-450 [facility] Comment on above: Performed By: #### C BC ####[facility] Chactabalz0835 [place] [address]Dr. Chrissy Frazier RBC 5.01 106/ul Normal 4.70-6.10 [facility] Comment on above: Performed By: #### C BC ####[facility] Idzktvnexh9762 [place] [address]Dr. Chrissy Frazier WBC 15.2 103/ul Critically high 4.0-11.0 [facility] Comment on above: Performed By: #### C BC ####[facility] Ksqspkpduu[address] [place], [place] [address]Dr. Chrissy Frazier LIPASEon 09-03-2022 Lipase [Catalytic activity/Vol] 46.0 U/L Critically low 73.0-393.0 [facility] Comment on above: Performed By: #### L TERRENCE VICTORIA, CMP ####[facility] Kptoesufyw22[address] [place], [place] [address]Dr. Chrissy Frazier PROF 14(COMP METB)on 022 Albumin [Mass/Vol] 3.7 g/dL Normal 3.4-5.0 [facility] Comment on above: Performed By: #### L TERRENCE VICTORIA, CMP ####[facility] Rtcwbnltuu9055 [place] [address]Dr. Chrissy Frazier Albumin/Globulin [Mass ratio] 1.0 {ratio} Normal [facility] Comment on above: Performed By: #### L TERRENCE VICTORIA, CMP ####[facility] Ytemxpwpep[address] [place], [place] [address]Dr. Chrissy Frazier ALP [Catalytic activity/Vol] 65 U/L Normal 46-116 [facility] Comment on above: Performed By: #### L TERRENCE VICTORIA, CMP ####[facility] Ekufqwnykv[address] [place], [place] [address]Dr. Chrissy Frazier ALT [Catalytic activity/Vol] 42 U/L Normal 16-63 [facility] Comment on above: Performed By: #### L TERRENCE VICTORIA, CMP ####[facility] Inlgxvqaze2221 [place] [address]Dr. Chrissy Frazier Anion gap [Moles/Vol] 14.4 mmol/L Normal [facility] Comment on above: Performed By: #### L TERRENCE VICTORIA, CMP ####[facility] Zkxpciouva3386 [place] [address]Dr. Chrissy Frazier AST [Catalytic activity/Vol] 16 U/L Normal 15-37 [facility] Comment on above: Performed By: #### L TERRENCE VICTORIA, CMP ####[facility] Ixtvxiuxiz4941 [place] [address]Dr. Chrissy Frazier Bilirubin [Mass/Vol] 0.4 mg/dL Normal 0.2-1.0 [facility] Comment on above: Performed By: #### L TERRENCE VICTORIA, CMP ####[facility] Hxvhbysejz9239 [place] [address]Dr. Chrissy Frazier Calcium [Mass/Vol] 8.7 mg/dL Normal 8.5-10.1 [facility] Comment on above: Performed By: #### L TERRENCE VICTORIA, CMP ####[facility] Sxnhzdlbsz8159 [place] [address]Dr. Chrissy Frazier Chloride [Moles/Vol] 105 mmol/L Normal 98-107 [facility] Comment on above: Performed By: #### L TERRENCE VICTORIA, CMP ####[facility] Tajxibjuwx2594 [place] [address]Dr. Chrissy Frazier CO2 [Moles/Vol] 22.6 mmol/L Normal 21.0-32.0 [facility] Comment on above: Performed By: #### L TERRENCE VICTORIA, CMP ####[facility] Wyryhmvqmj0011 [place] [address]Dr. Chrissy Frazier Creatinine [Mass/Vol] 1.11 mg/dL Normal 0.70-1.30 [facility] Comment on above: Performed By: #### L TERRENCE VICTORIA, CMP ####[facility] Nkkqrpztdt4538 [place] [id number]. Chrissy Frazier EGFR-AF LATVIAN >60 Normal >=60 [facility] Comment on above: Performed By: #### L TERRENCE VICTORIA, CMP ####[facility] Fxsxiddbna1288 [place] [id number]. Chrissy Frazier EGFR-NON AF LATVIAN >60 Normal >=60 [facility] Comment on above: Performed By: #### L TERRENCE VICTORIA, CMP ####[facility] Lmslrthudd1887 [place] [address]Dr. Chrissy Frazier Globulin (S) [Mass/Vol] 3.7 g/dL Normal [facility] Comment on above: Performed By: #### L TERRENCE VICTORIA, CMP ####[facility] Hfkupbdapj1404 [place] [address]Dr. Chrissy Frazier Glucose [Mass/Vol] 121 mg/dL Critically high 74-106 [facility] Comment on above: Performed By: #### L TERRENCE VICTORIA, CMP ####[facility] Figpqnytyg2573 [place] [address]Dr. Chrissy Frazier Potassium [Moles/Vol] 4.0 mmol/L Normal 3.5-5.1 [facility] Comment on above: Performed By: #### L TERRENCE VICTORIA, CMP ####[facility] Orsjyggxnj665[address] [place], [place] [address]Dr. Chrissy Frazier Protein [Mass/Vol] 7.4 g/dL Normal 6.4-8.2 [facility] Comment on above: Performed By: #### L TERRENCE VICTORIA, CMP ####[facility] Qlesjvikdr0808 [place] [address]Dr. Chrissy Frazier Sodium [Moles/Vol] 138 mmol/L Normal 136-145 [facility] Comment on above: Performed By: #### L TERRENCE VICTORIA, CMP ####[facility] Hmxehvfcek6757 [place] [address]Dr. Chrissy Frazier Urea nitrogen [Mass/Vol] 6.0 mg/dL Critically low 7.0-18.0 [facility] Comment on above: Performed By: #### L IPA, TERRENCE, CMP ####[facility] Xvyudhhttx28[address] [place], [place] [address]Dr. Chrissy Frazier Urea nitrogen/Creatinine [Mass ratio] 5.4 mg/mg Normal [facility] Comment on above: Performed By: #### L IPA, TERRENCE, CMP ####[facility] Xlswcpsnsp[address] [place], [place] [address]Dr. Chrissy Frazier AMYLASEon 09-02-2022 Amylase [Catalytic activity/Vol] 29 U/L Normal 25-115 [facility] Comment on above: Performed By: #### A MY, CMP, LIPA ####[facility] Cxzqycujlz840[address] [place], [place] [address]Dr. Chrissy Frazier CBC AUTO DIFFon 09-02-2022 BASO # 0.1 103/ul Normal 0.0-0.1 [facility] Comment on above: Performed By: #### C BC ####[facility] Tvurpleial756[address] [place], [place] [address]Dr. Chrissy Frazier Basophils/100 WBC (Bld) 0.4 % Normal 0.2-2.0 [facility] Comment on above: Performed By: #### C BC ####[facility] Biqayjvlbb667[address] [place], [place] [address]Dr. Chrissy Frazier EO # 0.1 103/ul Normal 0.0-0.7 [facility] Comment on above: Performed By: #### C BC ####[facility] Lnlbkoalnc66[address] [place], [place] [address]Dr. Chrissy Frazier Eosinophils/100 WBC (Bld) 0.7 % Critically low 0.9-7.0 [facility] Comment on above: Performed By: #### C BC ####[facility] Ltkuypiatx9745[address] [place], [place] [address]Dr. Chrissy Frazier Erythrocyte distribution width (RBC) [Ratio] 13.7 % Normal 11.0-15.0 [facility] Comment on above: Performed By: #### C BC ####[facility] Jvdzfesxgv8113 [place] [address]Dr. Chrissy Freddie Hematocrit (Bld) [Volume fraction] 48.3 % Normal 42.0-54.0 [facility] Comment on above: Performed By: #### C BC ####[facility] Tjubelvrqk8449 [place] [address]Dr. Chrissy Frazier Hemoglobin (Bld) [Mass/Vol] 16.0 g/dL Normal 14.0-18.0 [facility] Comment on above: Performed By: #### C BC ####[facility] Xqqbsgdbcw6990 [place] [address]Dr. Chrissy Frazier IG # 0.09 10e3/ul Critically high 0.00-0.03 [facility] Comment on above: Performed By: #### C BC ####[facility] Mvoukesbzl05[address] [place], [place] [address]Dr. Chrissy Frazier IG % 0.5 % Normal 0.0-0.5 [facility] Comment on above: Performed By: #### C BC ####[facility] Ichdavgyfp7217[address] [place], [place] [address]Dr. Chrissy Frazier LYMPH # 3.7 103/ul Normal 1.2-3.8 [facility] Comment on above: Performed By: #### C BC ####[facility] Psxxvabria9711 [place] [address]Dr. Chrissy Frazier Lymphocytes/100 WBC (Bld) 21.5 % Normal 20.5-60.0 [facility] Comment on above: Performed By: #### C BC ####[facility] Qjqyylorrc0451 [place] [address]Dr. Chrissy Frazier MANUAL DIFF REQ NO Normal [facility] Comment on above: Performed By: #### C BC ####[facility] Ekiexzvlja769[address] [place], [place] [address]Dr. Chrissy Frazier MCH (RBC) [Entitic mass] 28.1 pg Normal 25.9-34.0 [facility] Comment on above: Performed By: #### C BC ####[facility] Nlnmiuizpm[address] [place], [place] [address]Dr. Chrissy Frazier MCHC (RBC) [Mass/Vol] 33.1 g/dL Normal 29.9-35.2 [facility] Comment on above: Performed By: #### C BC ####[facility] Eohehjkebc4682 [place] [id number]. Chrissy Frazier MCV (RBC) [Entitic vol] 84.7 fL Normal 80.0-94.0 [facility] Comment on above: Performed By: #### C BC ####[facility] Yjtepctigh1080 [place] [address]Dr. Chrissy Frazier MONO # 0.7 103/ul Normal 0.3-0.8 [facility] Comment on above: Performed By: #### C BC ####[facility] Swjxueibwh3427 [place] [address]Dr. Chrissy Frazier Monocytes/100 WBC (Bld) 4.2 % Normal 1.7-12.0 [facility] Comment on above: Performed By: #### C BC ####[facility] Unrappybfu6732 [place] [address]Dr. Chrissy Frazier NEUT # 12.4 103/ul Critically high 1.4-6.5 [facility] Comment on above: Performed By: #### C BC ####[facility] Qakxrtiwib9546 [place] [address]Dr. Chrissy Frazier Neutrophils/100 WBC (Bld) 72.7 % Normal 43.0-75.0 [facility] Comment on above: Performed By: #### C BC ####[facility] Zihofljyer4793 [place] [address]Dr. Chrissy Frazier Platelet mean volume (Bld) [Entitic vol] 10.9 fL Normal 9.5-13.5 [facility] Comment on above: Performed By: #### C BC ####[facility] Mpfswiucrb[address] [place], [place] [address]Dr. Chrissy Frazier PLT 386 103/ul Normal 150-450 [facility] Comment on above: Performed By: #### C BC ####[facility] Dtffcposwo5096 [place] [address]Dr. Chrissy Frazier RBC 5.70 106/ul Normal 4.70-6.10 [facility] Comment on above: Performed By: #### C BC ####[facility] Lhkpmdofup8220 [place] [id number]. Chrissy Frazier WBC 17.0 103/ul Critically high 4.0-11.0 [facility] Comment on above: Performed By: #### C BC ####[facility] Ellydnexzr5854 [place] [id number]. Chrissy Frazier Covid-19 PCR (CVDTBH)on 08-21 SARS-CoV-2 (COVID-19) RNA RHIANNON+probe Ql (Unsp spec) Not detected Normal NOT DETECTED [facility] Comment on above: Result Comment: When diagnostic [...] for this test is supported by the [employer] of [employer] and Human Service's declaration that [...] be used). Performed By: #### C VDTBH ####[facility] Obgbrstvve3012 [place] [id number]. Chrissy Frazier LACTATE/LACTIC ACIDon 2021 Lactate [Moles/Vol] 7.1 mmol/L Critically high 0.4-1.9 [facility] Comment on above: Performed By: #### L ACT ####[facility] Ykfomrqtep9958 [place] [address]Dr. Chrissy Frazier Lactate [Moles/Vol] 8.6 mmol/L Critically high 0.4-1.9 [facility] Comment on above: Performed By: #### L ACT ####[facility] Mtyjchxbmr2730 [place] [address]Dr. Chrissy Frazier LIPASEon 09-02-2022 Lipase [Catalytic activity/Vol] 60.0 U/L Critically low 73.0-393.0 [facility] Comment on above: Performed By: #### A MY, CMP, LIPA ####[facility] Ykassvswyu3029 [place] [address]Dr. Chrissy Frazier POINT OF CARE GLUCOSEon 08-21 Glucose [Mass/Vol] 140 mg/dL Critically high 74-106 [facility] Comment on above: Performed By: #### P OCGLUC ####[facility] Facpggxgnr317[address] [place], [place] [address]Dr. Chrissy Frazier PROF 14(COMP METB)on 022 Albumin [Mass/Vol] 4.3 g/dL Normal 3.4-5.0 [facility] Comment on above: Performed By: #### A MY, CMP, LIPA ####[facility] Ukiloygclm1684 [place] [address]Dr. Chrissy Frazier Albumin/Globulin [Mass ratio] 1.0 {ratio} Normal [facility] Comment on above: Performed By: #### A MY, CMP, LIPA ####[facility] Ontztpftbq9343 [place] [address]Dr. Chrissy Frazier ALP [Catalytic activity/Vol] 82 U/L Normal 46-116 [facility] Comment on above: Performed By: #### A MY, CMP, LIPA ####[facility] Gbjplxfqqt8402 [place] [address]Dr. Chrissy Frazier ALT [Catalytic activity/Vol] 48 U/L Normal 16-63 [facility] Comment on above: Performed By: #### A MY, CMP, LIPA ####[facility] Wqdeksltvp5693 [place] [address]Dr. Chrissy Frazier Anion gap [Moles/Vol] 25.3 mmol/L Normal [facility] Comment on above: Performed By: #### A MY, CMP, LIPA ####[facility] Miduwbiqac4378 [place] [address]Dr. Chrissy Frazier AST [Catalytic activity/Vol] 33 U/L Normal 15-37 [facility] Comment on above: Performed By: #### A MY, CMP, LIPA ####[facility] Hflkuigrwl4548 [place] [address]Dr. Chrissy Frazier Bilirubin [Mass/Vol] 0.7 mg/dL Normal 0.2-1.0 [facility] Comment on above: Performed By: #### A MY, CMP, LIPA ####[facility] Dlvxjhcypw0039 [place] [address]Dr. Chrissy Frazier Calcium [Mass/Vol] 9.5 mg/dL Normal 8.5-10.1 [facility] Comment on above: Performed By: #### A MY, CMP, LIPA ####[facility] Laqrqyxkcy[address] [place], [place] [address]Dr. Chrissy Frazier Chloride [Moles/Vol] 100 mmol/L Normal 98-107 [facility] Comment on above: Performed By: #### A MY, CMP, LIPA ####[facility] Bmdgtnddps[address] [place] [address]Dr. Chrissy Frazier CO2 [Moles/Vol] 14.2 mmol/L Critically low 21.0-32.0 [facility] Comment on above: Performed By: #### A MY, CMP, LIPA ####[facility] Nnpwbkfqfv217[address] [place] [address]Dr. Chrissy Frazier Creatinine [Mass/Vol] 1.70 mg/dL Critically high 0.70-1.30 [facility] Comment on above: Performed By: #### A MY, CMP, LIPA ####[facility] Dwfgxzhgxd7[address] [place] [address]Dr. Chrissy Frazier EGFR-AF LATVIAN 57 mL/min/1.73m2 Critically low >=60 [facility] Comment on above: Performed By: #### A MY, CMP, LIPA ####[facility] Hmdgwhiyiw9[address] [place] [address]Dr. Chrissy Frazier EGFR-NON AF LATVIAN 47 mL/min/1.73m2 Critically low >=60 [facility] Comment on above: Performed By: #### A MY, CMP, LIPA ####[facility] Ftvavhjyhc87[address] [place] [address]Dr. Chrissy Frazier Globulin (S) [Mass/Vol] 4.2 g/dL Normal [facility] Comment on above: Performed By: #### A MY, CMP, LIPA ####[facility] Qjictwxoem4251 [place] [address]Dr. Chrissy Frazier Glucose [Mass/Vol] 212 mg/dL Critically high 74-106 [facility] Comment on above: Performed By: #### A MY, CMP, LIPA ####[facility] Heyyffpzyt[address] [place], [place] [address]Dr. Chrissy Frazier Potassium [Moles/Vol] 3.5 mmol/L Normal 3.5-5.1 [facility] Comment on above: Performed By: #### A MY, CMP, LIPA ####[facility] Tjjfgimkbi04[address] [place], [place] [address]Dr. Chrissy Frazier Protein [Mass/Vol] 8.5 g/dL Critically high 6.4-8.2 [facility] Comment on above: Performed By: #### A MY, CMP, LIPA ####[facility] Qxzxvxtuoc3312 [place] [address]Dr. Chrissy Frazier Sodium [Moles/Vol] 136 mmol/L Normal 136-145 [facility] Comment on above: Performed By: #### A MY, CMP, LIPA ####[facility] Zyyhfsahsj39[address] [place], [place] [address]Dr. Chrissy Frazier Urea nitrogen [Mass/Vol] 9.0 mg/dL Normal 7.0-18.0 [facility] Comment on above: Performed By: #### A MY, CMP, LIPA ####[facility] Jmcqnxtrfc86[address] [place] [address]Dr. Chrissy Frazier Urea nitrogen/Creatinine [Mass ratio] 5.3 mg/mg Normal [facility] Comment on above: Performed By: #### A MY, CMP, LIPA ####[facility] Mnzokdqmzn29[address] [place] [address]Dr. Chrissy Frazier AMYLASEon 07-07-2022 Amylase [Catalytic activity/Vol] 33 U/L Normal 25-115 [facility] Comment on above: Performed By: #### C MP, TERRENCE, BNP, LIPA ####[facility] Owdqgygnmj64[address] [place], [place] [address]Dr. Chrissy Frazier BNPon 07-07-2022 Natriuretic peptide B (Bld) [Mass/Vol] 29.0 pg/mL Normal <=450.0 [facility] Comment on above: Performed By: #### C MP, TERRENCE, BNP, LIPA ####[facility] Ndyqpetlgf[address] [place], [place] [address]Dr. Chrissy Frazier CBC AUTO DIFFon 07-07-2022 BASO # 0.0 103/ul Normal 0.0-0.1 [facility] Comment on above: Performed By: #### C BC ####[facility] Livdlvsplh95[address] [place], [place] [address]Dr. Chrissy Frazier Basophils/100 WBC (Bld) 0.4 % Normal 0.2-2.0 [facility] Comment on above: Performed By: #### C BC ####[facility] Ideygmgzoj024[address] [place], [place] [address]Dr. Chrissy Frazier EO # 0.3 103/ul Normal 0.0-0.7 [facility] Comment on above: Performed By: #### C BC ####[facility] Gchrmuilnj35[address] [place], [place] [address]Dr. Chrissy Frazier Eosinophils/100 WBC (Bld) 3.0 % Normal 0.9-7.0 [facility] Comment on above: Performed By: #### C BC ####[facility] Dmohvedfab898[address] [place], [place] [address]Dr. Chrissy Frazier Erythrocyte distribution width (RBC) [Ratio] 14.0 % Normal 11.0-15.0 [facility] Comment on above: Performed By: #### C BC ####[facility] Chcxgqyrgc6124 [place] [address]DrNancy Frazier Hematocrit (Bld) [Volume fraction] 42.8 % Normal 42.0-54.0 [facility] Comment on above: Performed By: #### C BC ####[facility] Joourfvkak7308 [place] [address]DrNancy Frazier Hemoglobin (Bld) [Mass/Vol] 14.3 g/dL Normal 14.0-18.0 [facility] Comment on above: Result Comment: IV F LUIDS RUNNING Performed By: #### C BC ####[facility] Zqfxljjxhw94[address] [place], [place] [address]DrNancy Frazier IG # 0.05 10e3/ul Critically high 0.00-0.03 [facility] Comment on above: Performed By: #### C BC ####[facility] Inagpvsglu618[address] [place], [place] [address]DrNancy Frazier IG % 0.5 % Normal 0.0-0.5 [facility] Comment on above: Performed By: #### C BC ####[facility] Nxvuripahc40[address] [place], [place] [address]DrNancy Frazier LYMPH # 2.4 103/ul Normal 1.2-3.8 [facility] Comment on above: Performed By: #### C BC ####[facility] Yavlwjwjsr040[address] [place], [place] [address]DrNancy Frazier Lymphocytes/100 WBC (Bld) 25.5 % Normal 20.5-60.0 [facility] Comment on above: Performed By: #### C BC ####[facility] Ttogzynqkj415[address] [place], [place] [address]DrNancy Frazier MANUAL DIFF REQ NO Normal [facility] Comment on above: Performed By: #### C BC ####[facility] Lbwoxkqolu3645 [place] [address]DrNancy Frazier MCH (RBC) [Entitic mass] 28.5 pg Normal 25.9-34.0 [facility] Comment on above: Performed By: #### C BC ####[facility] Xszdwrvxfp4740 [place] [id number]. Chrissy Freddie MCHC (RBC) [Mass/Vol] 33.4 g/dL Normal 29.9-35.2 [facility] Comment on above: Performed By: #### C BC ####[facility] Pdsobigihq4624 [place] [id number] Frazier MCV (RBC) [Entitic vol] 85.3 fL Normal 80.0-94.0 [facility] Comment on above: Performed By: #### C BC ####[facility] Klpgjezytv315[address] [place], [place] [address]DrNancy Frazier MONO # 0.7 103/ul Normal 0.3-0.8 [facility] Comment on above: Performed By: #### C BC ####[facility] Bdqpphweyq23[address] [place], [place] [address]Dr. Chrissy Frazier Monocytes/100 WBC (Bld) 7.8 % Normal 1.7-12.0 [facility] Comment on above: Performed By: #### C BC ####[facility] Uttjgwbzxi55[address] [place], [place] [address]Dr. Chrissy Frazier NEUT # 5.8 103/ul Normal 1.4-6.5 [facility] Comment on above: Performed By: #### C BC ####[facility] Nvonhwszci[address] [place], [place] [address]Dr. Chrissy Frazier Neutrophils/100 WBC (Bld) 62.8 % Normal 43.0-75.0 [facility] Comment on above: Performed By: #### C BC ####[facility] Hojajbetcf57[address] [place], [place] [address]DrNancy Frazier Platelet mean volume (Bld) [Entitic vol] 10.8 fL Normal 9.5-13.5 [facility] Comment on above: Performed By: #### C BC ####[facility] Jhljjteuzd[address] [place], [place] [address]Dr. Chrissy Frazier PLT 310 103/ul Normal 150-450 [facility] Comment on above: Performed By: #### C BC ####[facility] Decwuuryux0957 [place] [id number]. Tishrowan Freddie RBC 5.02 106/ul Normal 4.70-6.10 [facility] Comment on above: Performed By: #### C BC ####[facility] Lgcjgbomlt4356 [place], [place] [address]Pg. Tishrowan Freddie WBC 9.3 103/ul Normal 4.0-11.0 [facility] Comment on above: Performed By: #### C BC ####[facility] Lghdcczopw3585 [place] [id number]. Chrissy Frazier CULTURE URINEon 07-07-2022 CULTURE URINE Culture Observations: NO GROWTH. Normal [facility] Comment on above: Performed By: #### U RCX ####[facility] Nvgdcjrmhj5484 [place] [id number]. Chrissy Frazier DRUG SCREEN RAPID (URINE)on 07-07-2022 AMP Negative Normal NEGATIVE [facility] Comment on above: Performed By: #### D RUGRPD ####[facility] Mzunxstpck7[address] [place] [id number]. Chrissy Frazier BAR Negative Normal NEGATIVE [facility] Comment on above: Performed By: #### D RUGRPD ####[facility] Imhnzmgfsn0259 [place] [id number]. Chrissy Frazier BUP Negative Normal NEGATIVE [facility] Comment on above: Performed By: #### D RUGRPD ####[facility] Fftvqsuduw1856 [place] [id number]. Chrissy Frazier BZO Positive Abnormal NEGATIVE [facility] Comment on above: Performed By: #### D RUGRPD ####[facility] Vcoztryckt0433 [place] [id number]. Chrissy Frazier LAUREN Negative Normal NEGATIVE [facility] Comment on above: Performed By: #### D RUGRPD ####[facility] Laqgdvzqrp0204 [place] [id number]. Chrissy Frazier CUT-OFFS SEE BELOW Normal [facility] Comment on above: Result Comment: AMP (Amphetamine): 500ng/mL, BAR (Barbituates): 200 ng/mL, BZO (Benzodiazepines): 150 ng/mL, BUP (Buprenorphine): 10 ng/mL, LAUREN (Cocaine): 150 ng/mL, mAMP (Methamphetamine): 500 ng/mL, MTD (Methadone): 200 ng/mL, OPI (Opiates): 100 ng/mL, OXY (Oxycodone): 100 ng/mL, PCP (Phencyclidine): 25 ng/mL, PPX (Propoxyphene): 300 ng/mL, THC (Cannabinoids): 50 ng/mL, TCA (Trycyclic Antidepressants): 300 ng/mL Performed By: #### D RUGRPD ####[facility] Dvgfsepghz[address] [place], [place] [address]Dr. Chrissy Frazier DRUG CUT HEADER DRUG CLASS TEST SYSTEM CUT-OFF CONCENTRATIONS ARE FOLLOWS: Normal [facility] Comment on above: Performed By: #### D RUGRPD ####[facility] Kqskwpkgqv119[address] [place], [place] [address]Dr. Chrissy Frazier mAMP Negative Normal NEGATIVE [facility] Comment on above: Performed By: #### D RUGRPD ####[facility] Nctrjufsja44[address] [place], [place] [address]Dr. Chrissy Farzier MTD Negative Normal NEGATIVE [facility] Comment on above: Performed By: #### D RUGRPD ####[facility] Pyfyycyvax59[address] [place], [place] [address]Dr. Chrissy Frazier OPI Negative Normal NEGATIVE [facility] Comment on above: Performed By: #### D RUGRPD ####[facility] Utotlkxkbo137[address] [place], [place] [address]Dr. Chrissy Frazier OXY Negative Normal NEGATIVE [facility] Comment on above: Performed By: #### D RUGRPD ####[facility] Dhcaprhkdv9389[address] [place], [place] [address]Dr. Chrissy Frazier PCP Negative Normal NEGATIVE [facility] Comment on above: Performed By: #### D RUGRPD ####[facility] Jhftxkdxpc295[address] [place], [place] [address]Dr. Chrissy Frazier PPX Negative Normal NEGATIVE [facility] Comment on above: Performed By: #### D RUGRPD ####[facility] Tdlzqgomhp7705 [place] [address]Dr. Chrissy Frazier TCA Positive Abnormal NEGATIVE [facility] Comment on above: Performed By: #### D RUGRPD ####[facility] Yzmahwtign0512 [place] [address]Dr. Chrissy Frazier THC Positive Abnormal NEGATIVE [facility] Comment on above: Performed By: #### D RUGRPD ####[facility] Gmgamwtudf1224 [place] [address]Dr. Chrissy Frazier LIPASEon 07-07-2022 Lipase [Catalytic activity/Vol] 118.0 U/L Normal 73.0-393.0 [facility] Comment on above: Performed By: #### L IPA ####[facility] Csgjjomjii7[address] [place], [place] [address]Dr. Chrissy Frazier Lipase [Catalytic activity/Vol] 114.0 U/L Normal 73.0-393.0 [facility] Comment on above: Performed By: #### C MP, TERRENCE, BNP, LIPA ####[facility] Toybwikoym49[address] [place] [address]Dr. Chrissy Frazier PROF 14(COMP METB)on 022 Albumin [Mass/Vol] 3.4 g/dL Normal 3.4-5.0 [facility] Comment on above: Performed By: #### C MP, TERRENCE, BNP, LIPA ####[facility] Vtuurttbhg6902 [place] [address]Dr. Chrissy Frazier Albumin/Globulin [Mass ratio] 1.1 {ratio} Normal [facility] Comment on above: Performed By: #### C MP, TERRENCE, BNP, LIPA ####[facility] Gpvkslbifh3517 [place] [address]Dr. Chrissy Frazier ALP [Catalytic activity/Vol] 68 U/L Normal 46-116 [facility] Comment on above: Performed By: #### C MP, TERRENCE, BNP, LIPA ####[facility] Szotvxjish6169 [place] [address]Dr. Chrissy Frazier ALT [Catalytic activity/Vol] 93 U/L Critically high 16-63 [facility] Comment on above: Performed By: #### C MP, TERRENCE, BNP, LIPA ####[facility] Qylirptpat1715 [place] [address]Dr. Chrissy Frazier Anion gap [Moles/Vol] 14.4 mmol/L Normal [facility] Comment on above: Performed By: #### C MP, TERRENCE, BNP, LIPA ####[facility] Xdibqxtunt2[address] [place], [place] [address]Dr. Chrissy Frazier AST [Catalytic activity/Vol] 33 U/L Normal 15-37 [facility] Comment on above: Performed By: #### C MP, TERRENCE, BNP, LIPA ####[facility] Fzzlftuczo8[address] [place], [place] [address]Dr. Chrissy Frazier Bilirubin [Mass/Vol] 0.9 mg/dL Normal 0.2-1.0 [facility] Comment on above: Performed By: #### C MP, TERRENCE, BNP, LIPA ####[facility] Batgaejezf[address] [place], [place] [address]Dr. Chrissy Frazier Calcium [Mass/Vol] 8.2 mg/dL Critically low 8.5-10.1 Th e [facility] Comment on above: Performed By: #### C MP, TERRENCE, BNP, LIPA ####[facility] Jebokxzdup[address] [place], [place] [address]Dr. Chrissy Frazier Chloride [Moles/Vol] 103 mmol/L Normal 98-107 [facility] Comment on above: Performed By: #### C MP, TERRENCE, BNP, LIPA ####[facility] Bkyqkxkgxw16[address] [place], [place] [address]Dr. Chrissy Frazier CO2 [Moles/Vol] 22.9 mmol/L Normal 21.0-32.0 [facility] Comment on above: Performed By: #### C MP, TERRENCE, BNP, LIPA ####[facility] Qlwgctobeu07[address] [place], [place] [address]Dr. Chrissy Frazier Creatinine [Mass/Vol] 1.07 mg/dL Normal 0.70-1.30 [facility] Comment on above: Performed By: #### C MP, TERRENCE, BNP, LIPA ####[facility] Ytpnxevvld2386 [place] [address]Dr. Chrissy Frazier EGFR-AF LATVIAN >60 Normal >=60 [facility] Comment on above: Performed By: #### C MP, TERRENCE, BNP, LIPA ####[facility] Ftgjvjfcvt2755 [place] [address]Dr. Chrissy Frazier EGFR-NON AF LATVIAN >60 Normal >=60 [facility] Comment on above: Performed By: #### C MP, TERRENCE, BNP, LIPA ####[facility] Hsbiwfgnbb8848 [place] [address]Dr. Chrissy Frazier Globulin (S) [Mass/Vol] 3.2 g/dL Normal [facility] Comment on above: Performed By: #### C MP, TERRENCE, BNP, LIPA ####[facility] Iqpynejyjf3496 [place] [address]Dr. Chrissy Frazier Glucose [Mass/Vol] 96 mg/dL Normal 74-106 [facility] Comment on above: Performed By: #### C MP, TERRENCE, BNP, LIPA ####[facility] Kcrexeukxh9709 [place] [address]Dr. Chrissy Frazier Potassium [Moles/Vol] 3.3 mmol/L Critically low 3.5-5.1 [facility] Comment on above: Performed By: #### C MP, TERRENCE, BNP, LIPA ####[facility] Lntvjfusng2119 [place] [address]Dr. Chrissy Frazier Protein [Mass/Vol] 6.6 g/dL Normal 6.4-8.2 [facility] Comment on above: Performed By: #### C MP, TERRENCE, BNP, LIPA ####[facility] Nvgnlhlvrq0431 [place] [address]Dr. Chrissy Frazier Sodium [Moles/Vol] 137 mmol/L Normal 136-145 [facility] Comment on above: Performed By: #### C MP, TERRENCE, BNP, LIPA ####[facility] Rajdeafpvd6432 [place] [address]Dr. Chrissy Frazier Urea nitrogen [Mass/Vol] 13.0 mg/dL Normal 7.0-18.0 [facility] Comment on above: Performed By: #### C MP, TERRENCE, BNP, LIPA ####[facility] Eylobgekhc[address] [place], [place] [address]Dr. Chrissy Frazier Urea nitrogen/Creatinine [Mass ratio] 12.1 mg/mg Normal [facility] Comment on above: Performed By: #### C MP, TERRENCE, BNP, LIPA ####[facility] Movxmknbsg[address] [place], [place] [address]Dr. Chrissy Frazier UA RANDOM W/MICROSCOPICon BACTERIA TRACE Abnormal NONE SEEN [facility] Comment on above: Performed By: #### U AMIC ####[facility] Gkqtggndtc722[address] [place], [place] [address]Dr. Chrissy Frazier Bilirubin Ql (U) Negative Normal NEGATIVE The [facility] Comment on above: Performed By: #### U AMIC ####[facility] Wreaissevt23[address] [place], [place] [address]Dr. Chrissy Frazier CAST NONE SEEN Normal NONE SEEN [facility] Comment on above: Performed By: #### U AMIC ####[facility] Azallotxyw308[address] [place], [place] [address]Dr. Chrissy Frazier Clarity (U) CLEAR Normal CLEAR [facility] Comment on above: Performed By: #### U AMIC ####[facility] Xbrskdvztr7[address] [place], [place] [address]Dr. Chrissy Frazier Color (U) YELLOW Normal YELLOW [facility] Comment on above: Performed By: #### U AMIC ####[facility] Rhlzzdhvac[address] [place], [place] [address]Dr. Chrissy Frazier Crystals LM Nom (Urine sed) SEEN Abnormal NONE SEEN [facility] Comment on above: Performed By: #### U AMIC ####[facility] Austwmgjhr509[address] [place], [place] [address]Dr. Chrissy Frazier Epithelial cells LM Ql (Urine sed) RARE Normal NONE SEEN /RARE [facility] Comment on above: Performed By: #### U AMIC ####[facility] Dmewhrxcaj3160 [place] [address]Dr. Tishrowan Freddie Glucose Ql (U) Negative Normal NEGATIVE [facility] Comment on above: Performed By: #### U AMIC ####[facility] Bzrnhylzpp2256 [place] [address]Dr. Chrissy Frazier Hemoglobin Ql (U) Negative Normal NEGATIVE The [facility] Comment on above: Performed By: #### U AMIC ####[facility] Tmlnpmtbxg4846 [place] [address]Dr. Chrissy Frazier Ketones Ql (U) 15 mg/dl Abnormal NEGATIVE [facility] Comment on above: Performed By: #### U AMIC ####[facility] Yfreddesct9[address] [place], [place] [address]Dr. Chrissy Frazier LEUKOCYTES Negative Normal NEGATIVE [facility] Comment on above: Performed By: #### U AMIC ####[facility] Aihbdlkclv024[address] [place], [place] [address]Dr. Chrissy Freddie MUCOUS NONE SEEN Normal NONE SEEN [facility] Comment on above: Performed By: #### U AMIC ####[facility] Ogrnnfyavi8987 [place] [address]Dr. Chrissy Frazier Nitrite Ql (U) Negative Normal NEGATIVE [facility] Comment on above: Performed By: #### U AMIC ####[facility] Oxgharludy9528 [place] [address]Dr. Chrissy Frazier pH (U) 6.0 [pH] Normal 5-9 [facility] Comment on above: Performed By: #### U AMIC ####[facility] Ceyfjujkaa24[address] [place], [place] [address]Dr. Chrissy Frazier RBC 0-2 Normal 0-2 [facility] Comment on above: Performed By: #### U AMIC ####[facility] Stpnqmyvxh196[address] [place], [place] [address]Dr. Chrissy Frazier SPEC GRAVITY 1.015 Normal 1.005-<=1.[address] [facility] Comment on above: Performed By: #### U AMIC ####[facility] Cgpscmphzg3010 [place] [address]Dr. Chrissy Frazier UA PROTEIN Negative Normal NEGATIVE/ TRACE The [facility] Comment on above: Performed By: #### U AMIC ####[facility] Wdlncdqfwa6208 [place] [address]Dr. Chrissy Frazier URIC ACID CRYSTALS RARE Normal [facility] Comment on above: Performed By: #### U AMIC ####[facility] Jgxzhcsypr0764 [place] [address]Dr. Chrissy Frazier Urobilinogen Qn (U) 0.2 {Estrellita'U}/dL Normal 0.2 - 1. 0 [facility] Comment on above: Performed By: #### U AMIC ####[facility] Xbbqakubdp204[address] [place], [place] [address]Dr. Chrissy Frazier WBC 0-2 Abnormal NONE SEEN The [facility] Comment on above: Performed By: #### U AMIC ####[facility] Smyatejcwu8076 [place] [address]Dr. Tishrowan Frazier AMYLASEon 07-06-2022 Amylase [Catalytic activity/Vol] 37 U/L Normal 25-115 [facility] Comment on above: Performed By: #### C MP, LIPA, TERRENCE ####[facility] Golynjyyuq49[address] [place], [place] [address]Dr. Chrissy Frazier CBC AUTO DIFFon 07-06-2022 BASO # 0.1 103/ul Normal 0.0-0.1 [facility] Comment on above: Performed By: #### C BC ####[facility] Ertykifcrj9[address] [place], [place] [address]Dr. Chrissy Frazier Basophils/100 WBC (Bld) 0.4 % Normal 0.2-2.0 [facility] Comment on above: Performed By: #### C BC ####[facility] Cfuspaszmw02[address] [place], [place] [address]Dr. Chrissy Frazier EO # 0.1 103/ul Normal 0.0-0.7 The [facility] Comment on above: Performed By: #### C BC ####[facility] Bqmpwcdfqm28[address] [place] [address]Dr. Chrissy Frazier Eosinophils/100 WBC (Bld) 0.5 % Critically low 0.9-7.0 [facility] Comment on above: Performed By: #### C BC ####[facility] Zvabzzhlkm0495 [place] [address]Dr. Chrissy Freddie Erythrocyte distribution width (RBC) [Ratio] 13.6 % Normal 11.0-15.0 [facility] Comment on above: Performed By: #### C BC ####[facility] Oxnvfzkiuy530[address] [place], [place] [address]Dr. Chrissy Frazier Hematocrit (Bld) [Volume fraction] 47.9 % Normal 42.0-54.0 [facility] Comment on above: Performed By: #### C BC ####[facility] Duxodwazgo38[address] [place], [place] [address]Dr. Chrissy Freddie Hemoglobin (Bld) [Mass/Vol] 16.4 g/dL Normal 14.0-18.0 [facility] Comment on above: Performed By: #### C BC ####[facility] Bugaylbyhn74[address] [place], [place] [address]Dr. Chrissy Frazier IG # 0.09 10e3/ul Critically high 0.00-0.03 [facility] Comment on above: Performed By: #### C BC ####[facility] Dysgdcpwrs56[address] [place], [place] [address]Dr. Chrissy Freddie IG % 0.6 % Critically high 0.0-0.[address] [facility] Comment on above: Performed By: #### C BC ####[facility] Rdwrnxpehu3977[address] [place], [place] [address]DrNancy Frazier LYMPH # 2.5 103/ul Normal 1.2-3.8 [facility] Comment on above: Performed By: #### C BC ####[facility] Ezyhqzhoru0400[address] [place], [place] [address]Dr. Chrissy Frazier Lymphocytes/100 WBC (Bld) 16.7 % Critically low 20.5-60.0 [facility] Comment on above: Performed By: #### C BC ####[facility] Uxwnutwidz0998 [place] [address]DrNancy Frazier MANUAL DIFF REQ NO Normal [facility] Comment on above: Performed By: #### C BC ####[facility] Rejqcowpzb1106 [place] [address]DrNancy Frazier MCH (RBC) [Entitic mass] 28.1 pg Normal 25.9-34.0 [facility] Comment on above: Performed By: #### C BC ####[facility] Kwdrepjqmr9[address] [place], [place] [address]DrNancy Frazier MCHC (RBC) [Mass/Vol] 34.2 g/dL Normal 29.9-35.2 [facility] Comment on above: Performed By: #### C BC ####[facility] Wnghadacnb310[address] [place], [place] [address]DrNancy Frazier MCV (RBC) [Entitic vol] 82.2 fL Normal 80.0-94.0 [facility] Comment on above: Performed By: #### C BC ####[facility] Sotopvmvnu7[address] [place], [place] [address]DrNancy Frazier MONO # 1.0 103/ul Critically high 0.3-0.[address] [facility] Comment on above: Performed By: #### C BC ####[facility] Oncemjdkuu614[address] [place], [place] [address]DrNancy Frazier Monocytes/100 WBC (Bld) 6.7 % Normal 1.7-12.0 [facility] Comment on above: Performed By: #### C BC ####[facility] Mtbsonubqm9790[address] [place], [place] [address]DrNancy Frazier NEUT # 11.3 103/ul Critically high 1.4-6.5 [facility] Comment on above: Performed By: #### C BC ####[facility] Ijlxnzlszv2589[address] [place], [place] [address]DrNancy Frazier Neutrophils/100 WBC (Bld) 75.1 % Critically high 43.0-75.0 [facility] Comment on above: Performed By: #### C BC ####[facility] Pjgrtmjryg3475 [place] [address]Dr. Chrissy Frazier Platelet mean volume (Bld) [Entitic vol] 10.6 fL Normal 9.5-13.5 [facility] Comment on above: Performed By: #### C BC ####[facility] Qtezevahyz7743 [place] [address]Dr. Chrissy Frazier PLT 416 103/ul Normal 150-450 [facility] Comment on above: Performed By: #### C BC ####[facility] Feeapfsqat2331 [place] [address]Dr. Chrissy Frazier RBC 5.83 106/ul Normal 4.70-6.10 [facility] Comment on above: Performed By: #### C BC ####[facility] Fjtwtlmygd6522 [place] [address]Dr. Chrissy Frazier WBC 15.0 103/ul Critically high 4.0-11.0 [facility] Comment on above: Performed By: #### C BC ####[facility] Dldusztpzn4252 [place] [address]Dr. Chrissy Frazier [facility] SARS-CoV-2 (COVID-19) RNA RHIANNON+probe Ql (Unsp spec) Not detected Normal NOT DETECTED [facility] Comment on above: Result Comment: When diagnostic [...] for this test is supported by the [place] of Health and Human Service's declaration that [...] be used). Performed By: #### C VDTBH ####[facility] Tmouvzofwa9520 [place] [address]Dr. Chrissy Frazier LIPASEon 07-06-2022 Lipase [Catalytic activity/Vol] 130.0 U/L Normal 73.0-393.0 [facility] Comment on above: Performed By: #### C MP LIPA, TERRENCE ####[facility] Juvftuelob9012 [place] [address]Dr. Chrissy Frazier PROF 14(COMP METB)on 022 Albumin [Mass/Vol] 4.4 g/dL Normal 3.4-5.0 [facility] Comment on above: Performed By: #### C MP LIPA, TERRENCE ####[facility] Ahwptdulpc5937 [place] [address]Dr. Chrissy Frazier Albumin/Globulin [Mass ratio] 1.1 {ratio} Normal [facility] Comment on above: Performed By: #### C MP LIPA, TERRENCE ####[facility] Ezxcvbgchm08[address] [place], [place] [address]Dr. Chrissy Frazier ALP [Catalytic activity/Vol] 83 U/L Normal 46-116 [facility] Comment on above: Performed By: #### C MP, LIPA, TERRENCE ####[facility] Lemndkcvyc7455 [place] [address]Dr. Chrissy Frazier ALT [Catalytic activity/Vol] 107 U/L Critically high 16-63 [facility] Comment on above: Performed By: #### C MP, LIPA, TERRENCE ####[facility] Jpacinpegn7798 [place] [address]DrNancy Frazier Anion gap [Moles/Vol] 20.5 mmol/L Normal [facility] Comment on above: Performed By: #### C MP, LIPA, TERRENCE ####[facility] Gugblnkphw2749 [place] [address]Dr. Chrissy Frazier AST [Catalytic activity/Vol] 46 U/L Critically high 15-37 [facility] Comment on above: Performed By: #### C OSWALD ADAIR, TERRENCE ####[facility] Aoquhiaybf3152 [place] [address]Dr. Chrissy Frazier Bilirubin [Mass/Vol] 1.2 mg/dL Critically high 0.2-1.0 [facility] Comment on above: Performed By: #### C OSWALD ADAIR, TERRENCE ####[facility] Idgxoefrlb4025[address] [place], [place] [address]Dr. Chrissy Frazier Calcium [Mass/Vol] 9.1 mg/dL Normal 8.5-10.1 [facility] Comment on above: Performed By: #### C OSWALD ADAIR, TERRENCE ####[facility] Wxolcpowrq9480[address] [place], [place] [address]Dr. Chrissy Frazier Chloride [Moles/Vol] 100 mmol/L Normal 98-107 [facility] Comment on above: Performed By: #### C OSWALD ADAIR, TERRENCE ####[facility] Vhabsiyxfj484[address] [place], [place] [address]Dr. Chrissy Frazier CO2 [Moles/Vol] 18.6 mmol/L Critically low 21.0-32.0 [facility] Comment on above: Performed By: #### C OSWALD ADAIR, TERRENCE ####[facility] Lyhgspwjqq61[address] [place], [place] [address]Dr. Chrissy Frazier Creatinine [Mass/Vol] 1.44 mg/dL Critically high 0.70-1.30 [facility] Comment on above: Performed By: #### C OSWALD ADAIR, TERRENCE ####[facility] Sgrfghkody5024[address] [place], [place] [address]Dr. Chrissy Frazier EGFR-AF LATVIAN >60 Normal >=60 [facility] Comment on above: Performed By: #### C TESSA ADAIRA, TERRENCE ####[facility] Mehpvfpogj1927[address] [place], [place] [address]Dr. Chrissy Frazier EGFR-NON AF LATVIAN 57 mL/min/1.73m2 Critically low >=60 [facility] Comment on above: Performed By: #### C TESSA ADAIRA, TERRENCE ####[facility] Cbjottkind0299 [place] [address]Dr. Chrissy Frazier Globulin (S) [Mass/Vol] 4.0 g/dL Normal [facility] Comment on above: Performed By: #### C MANA LIPA, TERRENCE ####[facility] Rwmigleihx1114 [place] [address]Dr. Chrissy Frazier Glucose [Mass/Vol] 117 mg/dL Critically high 74-106 [facility] Comment on above: Performed By: #### C MANA LIPA, TERRENCE ####[facility] Xfvyzfmvod[address] [place], [place] [address]Dr. Chrissy Frazier Potassium [Moles/Vol] 3.1 mmol/L Critically low 3.5-5.1 [facility] Comment on above: Performed By: #### C MANA LIPA, TERRENCE ####[facility] Dcarfglcgw643[address] [place], [place] [address]Dr. Chrissy Frazier Protein [Mass/Vol] 8.4 g/dL Critically high 6.4-8.2 [facility] Comment on above: Performed By: #### C MANA LIPA, TERRENCE ####[facility] Rysfcogpww059[address] [place], [place] [address]Dr. Chrissy Frazier Sodium [Moles/Vol] 136 mmol/L Normal 136-145 [facility] Comment on above: Performed By: #### C MANA LIPA, TERRENCE ####[facility] Esexezugnt[address] [place], [place] [address]Dr. Chrissy Frazier Urea nitrogen [Mass/Vol] 15.0 mg/dL Normal 7.0-18.0 [facility] Comment on above: Performed By: #### C MANA LIPA, TERRENCE ####[facility] Yscgtcljpc[address] [place], [place] [address]Dr. Chrissy Frazier Urea nitrogen/Creatinine [Mass ratio] 10.4 mg/mg Normal [facility] Comment on above: Performed By: #### C MANA LIPA, TERRENCE ####[facility] Temdtkzyap[address] [place], [place] [address]Dr. Chrissy Frazier CBC AUTO DIFFon 07-05-2022 BASO # 0.0 103/ul Normal 0.0-0.1 [facility] Comment on above: Performed By: #### C BC ####[facility] Lkyrnpgqyt6472 [place] [id number]. Chrissy Frazier Basophils/100 WBC (Bld) 0.3 % Normal 0.2-2.0 [facility] Comment on above: Performed By: #### C BC ####[facility] Qwjpeymmzp5520 [place] [id number]. Chrissy Freddie EO # 0.2 103/ul Normal 0.0-0.7 [facility] Comment on above: Performed By: #### C BC ####[facility] Cojjhbryfu0624 [place] [address]Dr. Chrissy Freddie Eosinophils/100 WBC (Bld) 1.5 % Normal 0.9-7.0 [facility] Comment on above: Performed By: #### C BC ####[facility] Jtpnzlrofg0839 [place] [address]Dr. Chrissy Frazier Erythrocyte distribution width (RBC) [Ratio] 13.9 % Normal 11.0-15.0 [facility] Comment on above: Performed By: #### C BC ####[facility] Bazobpdegq0398 [place] [id number]. Chrissy Frazier Hematocrit (Bld) [Volume fraction] 44.5 % Normal 42.0-54.0 [facility] Comment on above: Performed By: #### C BC ####[facility] Rrmszncwxt7830 [place] [id number]. Chrissy Frazier Hemoglobin (Bld) [Mass/Vol] 14.8 g/dL Normal 14.0-18.0 [facility] Comment on above: Performed By: #### C BC ####[facility] Rvkflhvmbj5834 [place] [id number]. Tishrowan Freddie IG # 0.05 10e3/ul Critically high 0.00-0.03 [facility] Comment on above: Performed By: #### C BC ####[facility] Dgiozktgyg7682 [place], [place] [address]Lh. Chrissy Frazier IG % 0.4 % Normal 0.0-0.5 [facility] Comment on above: Performed By: #### C BC ####[facility] Xfzgvnxrxu0982 [place], [place] [address]Wm. Chrissy Frazier LYMPH # 3.3 103/ul Normal 1.2-3.8 [facility] Comment on above: Performed By: #### C BC ####[facility] Ddgdieakfx8171 [place] [id number]. Chrissy Frazier Lymphocytes/100 WBC (Bld) 29.1 % Normal 20.5-60.0 [facility] Comment on above: Performed By: #### C BC ####[facility] Wzwtcbmfnt8555 [place] [id number]. Chrissy Frazier MANUAL DIFF REQ NO Normal [facility] Comment on above: Performed By: #### C BC ####[facility] Euarufkymx6527 [place] [phone]. Chrissy Frazier MCH (RBC) [Entitic mass] 28.2 pg Normal 25.9-34.0 [facility] Comment on above: Performed By: #### C BC ####[facility] Lzehfgvlvo0865 [place] [id number]. Chrissy Frazier MCHC (RBC) [Mass/Vol] 33.3 g/dL Normal 29.9-35.2 [facility] Comment on above: Performed By: #### C BC ####[facility] Cnesnovpyg5183 [place] [id number]. Chrissy Frazier MCV (RBC) [Entitic vol] 84.9 fL Normal 80.0-94.0 [facility] Comment on above: Performed By: #### C BC ####[facility] Bymfsmgmlp2367 [place] [id number]. Chrissy Frazier MONO # 0.6 103/ul Normal 0.3-0.8 [facility] Comment on above: Performed By: #### C BC ####[facility] Bfjyqrjtcf7059 [place] [id number]. Chrissy Frazier Monocytes/100 WBC (Bld) 5.4 % Normal 1.7-12.0 [facility] Comment on above: Performed By: #### C BC ####[facility] Upbuubqgyk2512 [place] [id number]. Chrissy Frazier NEUT # 7.1 103/ul Critically high 1.4-6.[address] [facility] Comment on above: Performed By: #### C BC ####[facility] Yawsdeifaf6241 [place] [id number]. Chrissy Frazier Neutrophils/100 WBC (Bld) 63.3 % Normal 43.0-75.0 [facility] Comment on above: Performed By: #### C BC ####[facility] Lxrafktfbu0894 [place] [address]Dr. Chrissy Frazier Platelet mean volume (Bld) [Entitic vol] 9.9 fL Normal 9.5-13.5 [facility] Comment on above: Performed By: #### C BC ####[facility] Kspyzwakwr6121 [place] [id number]. Chrissy Frazier PLT 339 103/ul Normal 150-450 [facility] Comment on above: Performed By: #### C BC ####[facility] Etnyvoxvin5117 [place] [id number]. Chrissy Frazier RBC 5.24 106/ul Normal 4.70-6.10 [facility] Comment on above: Performed By: #### C BC ####[facility] Uqaniqhwwd4499 [place] [id number]. Chrissy Frazier WBC 11.2 103/ul Critically high 4.0-11.0 [facility] Comment on above: Performed By: #### C BC ####[facility] Zjdzezjzip0446 [place] [address]Dr. Chrissy Frazier PROF 14(COMP METB)on 022 Albumin [Mass/Vol] 3.8 g/dL Normal 3.4-5.0 [facility] Comment on above: Performed By: #### C MP ####[facility] Gacsiooiia0435 [place] [id number]. Chrissy Frazier Albumin/Globulin [Mass ratio] 1.1 {ratio} Normal [facility] Comment on above: Performed By: #### C MP ####[facility] Twicjplnhh0147 [place] [id number]. Chrissy Frazier ALP [Catalytic activity/Vol] 67 U/L Normal 46-116 [facility] Comment on above: Performed By: #### C MP ####[facility] Mjsnqniiuw6599 [place] [address]Dr. Chrissy Freddie ALT [Catalytic activity/Vol] 75 U/L Critically high 16-63 [facility] Comment on above: Performed By: #### C MP ####[facility] Urkitattdu128[address] [place], [place] [address]Dr. Chrissy Freddie Anion gap [Moles/Vol] 14.3 mmol/L Normal [facility] Comment on above: Performed By: #### C MP ####[facility] Yldkilmurl[address] [place], [place] [address]Dr. Chrissy Freddie AST [Catalytic activity/Vol] 40 U/L Critically high 15-37 [facility] Comment on above: Performed By: #### C MP ####[facility] Uoodlqcxzh5[address] [place], [place] [address]Dr. Chrissy Freddie Bilirubin [Mass/Vol] 0.9 mg/dL Normal 0.2-1.0 [facility] Comment on above: Performed By: #### C MP ####[facility] Yubbjvkoko1557 [place] [address]Dr. Chrissy Freddie Calcium [Mass/Vol] 8.4 mg/dL Critically low 8.5-10.1 [facility] Comment on above: Performed By: #### C MP ####[facility] Bpivxmduqu038[address] [place], [place] [address]Dr. Chrissy Frazier Chloride [Moles/Vol] 104 mmol/L Normal 98-107 [facility] Comment on above: Performed By: #### C MP ####[facility] Zqbvpacbwo7620 [place] [address]Dr. Chrissy Frazier CO2 [Moles/Vol] 24.1 mmol/L Normal 21.0-32.0 [facility] Comment on above: Performed By: #### C MP ####[facility] Moesyrbvuz3710 [place] [address]Dr. Chrissy Frazier Creatinine [Mass/Vol] 1.11 mg/dL Normal 0.70-1.30 [facility] Comment on above: Performed By: #### C MP ####[facility] Oujsgzjklk6039[address] [place], [place] [address]Dr. Chrissy Freddie EGFR-AF LATVIAN >60 Normal >=60 [facility] Comment on above: Performed By: #### C MP ####[facility] Altydlrjoo340[address] [place], [place] [address]Dr. Chrissy Frazier EGFR-NON AF LATVIAN >60 Normal >=60 [facility] Comment on above: Performed By: #### C MP ####[facility] Kooeulapjt268[address] [place], [place] [address]Dr. Chrissy Frazier Globulin (S) [Mass/Vol] 3.6 g/dL Normal [facility] Comment on above: Performed By: #### C MP ####[facility] Bbfhenymfx332[address] [place], [place] [address]Dr. Chrissy Frazier Glucose [Mass/Vol] 89 mg/dL Normal 74-106 [facility] Comment on above: Performed By: #### C MP ####[facility] Swvkestbds1040[address] [place], [place] [address]Dr. Chrissy Frazier Potassium [Moles/Vol] 3.4 mmol/L Critically low 3.5-5.1 [facility] Comment on above: Performed By: #### C MP ####[facility] Tidtvyvfga7438[address] [place], [place] [address]Dr. Chrissy Frazier Protein [Mass/Vol] 7.4 g/dL Normal 6.4-8.2 [facility] Comment on above: Performed By: #### C MP ####[facility] Wpjgpfnyfe419[address] [place], [place] [address]Dr. Chrissy Frazier Sodium [Moles/Vol] 139 mmol/L Normal 136-145 [facility] Comment on above: Performed By: #### C MP ####[facility] Wrozzalpbo[address] [place], [place] [address]Dr. Chrissy Frazier Urea nitrogen [Mass/Vol] 10.0 mg/dL Normal 7.0-18.0 [facility] Comment on above: Performed By: #### C MP ####[facility] Boyebmjwgh79[address] [place], [place] [address]Dr. Chrissy Freddie Urea nitrogen/Creatinine [Mass ratio] 9.0 mg/mg Normal [facility] Comment on above: Performed By: #### C MP ####[facility] Phcrzddcsr517[address] [place], [place] [address]Dr. Chrissy Frazier CBC AUTO DIFFon 07-04-2022 BASO # 0.0 103/ul Normal 0.0-0.1 [facility] Comment on above: Performed By: #### C BC ####[facility] Kehurbcwnk[address] [place], [place] [address]Dr. Chrissy Freddie Basophils/100 WBC (Bld) 0.2 % Normal 0.2-2.0 [facility] Comment on above: Performed By: #### C BC ####[facility] Yqvzdppypv6[address] [place], [place] [address]Dr. Chrissy Frazier EO # 0.0 103/ul Normal 0.0-0.7 [facility] Comment on above: Performed By: #### C BC ####[facility] Dsuzwhloth3825[address] [place], [place] [address]Dr. Chrissy Freddie Eosinophils/100 WBC (Bld) 0.3 % Critically low 0.9-7.0 [facility] Comment on above: Performed By: #### C BC ####[facility] Kyhrlpisyf26[address] [place], [place] [address]Dr. Chrissy Frazier Erythrocyte distribution width (RBC) [Ratio] 14.0 % Normal 11.0-15.0 [facility] Comment on above: Performed By: #### C BC ####[facility] Vzgzwoxuqf[address] [place], [place] [id number]. Chrissy Frazier Hematocrit (Bld) [Volume fraction] 43.2 % Normal 42.0-54.0 [facility] Comment on above: Performed By: #### C BC ####[facility] Mbryqrriqz1312 [place] [address]Dr. Chrissy Frazier Hemoglobin (Bld) [Mass/Vol] 14.6 g/dL Normal 14.0-18.0 [facility] Comment on above: Performed By: #### C BC ####[facility] Xpcduebrfg4729 [place] [address]Dr. Chrissy Freddie IG # 0.11 10e3/ul Critically high 0.00-0.03 [facility] Comment on above: Performed By: #### C BC ####[facility] Yngwbkwgmu9273 [place] [address]Dr. Tishrowan Frazier IG % 0.8 % Critically high 0.0-0.[address] [facility] Comment on above: Performed By: #### C BC ####[facility] Vmmswiggab5859 [place] [address]Dr. Chrissy Freddie LYMPH # 2.6 103/ul Normal 1.2-3.8 [facility] Comment on above: Performed By: #### C BC ####[facility] Awpiejpfog6081 [place] [address]Dr. Chrissy Freddie Lymphocytes/100 WBC (Bld) 18.3 % Critically low 20.5-60.0 [facility] Comment on above: Performed By: #### C BC ####[facility] Kgcdcgiuis1703 [place] [address]DrNancy Tishrowan Frazier MANUAL DIFF REQ NO Normal [facility] Comment on above: Performed By: #### C BC ####[facility] Zrdoqiryfn6967 [place] [address]DrNancy Chrissy Freddie MCH (RBC) [Entitic mass] 28.1 pg Normal 25.9-34.0 [facility] Comment on above: Performed By: #### C BC ####[facility] Kriclrhtad99[address] [place], [place] [address]Dr. Chrissy Frazier MCHC (RBC) [Mass/Vol] 33.8 g/dL Normal 29.9-35.2 [facility] Comment on above: Performed By: #### C BC ####[facility] Bakcjvmcfa8930 [place] [id number]. Chrissy Frazier MCV (RBC) [Entitic vol] 83.2 fL Normal 80.0-94.0 [facility] Comment on above: Performed By: #### C BC ####[facility] Xfppmhapnn73[address] [place] [id number]. Chrissy Freddie MONO # 0.7 103/ul Normal 0.3-0.8 [facility] Comment on above: Performed By: #### C BC ####[facility] Heukjndxqd27[address] [place] [address]Dr. Chrissy Frazier Monocytes/100 WBC (Bld) 5.3 % Normal 1.7-12.0 [facility] Comment on above: Performed By: #### C BC ####[facility] Gvbextsbkq9336 [place] [id number]. Chrissy Freddie NEUT # 10.5 103/ul Critically high 1.4-6.5 The [facility] Comment on above: Performed By: #### C BC ####[facility] Mgzfzjxjlt15[address] [place] [address]Dr. Chrissy Freddie Neutrophils/100 WBC (Bld) 75.1 % Critically high 43.0-75.0 [facility] Comment on above: Performed By: #### C BC ####[facility] Mrzgsgyfpb3755 [place] [id number]. Chrissy Freddie Platelet mean volume (Bld) [Entitic vol] 10.6 fL Normal 9.5-13.5 [facility] Comment on above: Performed By: #### C BC ####[facility] Tgasyhxibo73[address] [place] [address]Dr. Tishrowan Freddie PLT 309 103/ul Normal 150-450 [facility] Comment on above: Performed By: #### C BC ####[facility] Bjbcisgrjz20[address] [place] [address]Dr. Chrissy Frazier RBC 5.19 106/ul Normal 4.70-6.10 [facility] Comment on above: Performed By: #### C BC ####[facility] Kkcqumeuyf64[address] [place] [address]Dr. Chrissy Frazier WBC 14.0 103/ul Critically high 4.0-11.0 [facility] Comment on above: Performed By: #### C BC ####[facility] Untonhfojd45[address] [place] [address]Dr. Chrissy Frazier PROF 14(COMP METB)on 022 Albumin [Mass/Vol] 4.0 g/dL Normal 3.4-5.0 The [facility] Comment on above: Performed By: #### C MP ####[facility] Dcfoicawza127[address] [place], [place] [address]Dr. Chrissy Frazier Albumin/Globulin [Mass ratio] 1.1 {ratio} Normal [facility] Comment on above: Performed By: #### C MP ####[facility] Iejfemcroz64[address] [place], [place] [address]Dr. Chrissy Frazier ALP [Catalytic activity/Vol] 67 U/L Normal 46-116 [facility] Comment on above: Performed By: #### C MP ####[facility] Jxqtqgjrsw10[address] [place], [place] [address]Dr. Chrissy Frazier ALT [Catalytic activity/Vol] 40 U/L Normal 16-63 [facility] Comment on above: Performed By: #### C MP ####[facility] Xpqnnslvla8360[address] [place], [place] [address]Dr. Chrissy Frazier Anion gap [Moles/Vol] 17.7 mmol/L Normal [facility] Comment on above: Performed By: #### C MP ####[facility] Spbhrmlzfj47[address] [place], [place] [address]Dr. Chrissy Frazier AST [Catalytic activity/Vol] 27 U/L Normal 15-37 [facility] Comment on above: Performed By: #### C MP ####[facility] Kznsuywgsx837[address] [place], [place] [address]Dr. Chrissy Frazier Bilirubin [Mass/Vol] 0.8 mg/dL Normal 0.2-1.0 [facility] Comment on above: Performed By: #### C MP ####[facility] Vjicchzoom9159[address] [place], [place] [address]Dr. Chrissy Frazier Calcium [Mass/Vol] 8.8 mg/dL Normal 8.5-10.1 [facility] Comment on above: Performed By: #### C MP ####[facility] Oqaprypmka20[address] [place], [place] [address]Dr. Chrissy Frazier Chloride [Moles/Vol] 105 mmol/L Normal 98-107 The [facility] Comment on above: Performed By: #### C MP ####[facility] Mtxzkpefyg8725[address] [place], [place] [address]Dr. Chrissy Frazier CO2 [Moles/Vol] 16.5 mmol/L Critically low 21.0-32.0 [facility] Comment on above: Performed By: #### C MP ####[facility] Vclvmzfher115[address] [place], [place] [address]Dr. Chrissy Frazier Creatinine [Mass/Vol] 1.02 mg/dL Normal 0.70-1.30 [facility] Comment on above: Performed By: #### C MP ####[facility] Kcznspyvjs537[address] [place], [place] [address]Dr. Chrissy Frazier EGFR-AF LATVIAN >60 Normal >=60 The [facility] Comment on above: Performed By: #### C MP ####[facility] Loigsaeysd3977[address] [place], [place] [address]Dr. Chrissy Frazier EGFR-NON AF LATVIAN >60 Normal >=60 [facility] Comment on above: Performed By: #### C MP ####[facility] Jsollaosvf5550[address] [place], [place] [address]Dr. Chrissy Frazier Globulin (S) [Mass/Vol] 3.7 g/dL Normal [facility] Comment on above: Performed By: #### C MP ####[facility] Mazndyaguo147[address] [place], [place] [address]Dr. Chrissy Frazier Glucose [Mass/Vol] 106 mg/dL Normal 74-106 [facility] Comment on above: Performed By: #### C MP ####[facility] Orxmvzmxmm8419 [place] [address]Dr. Chrissy Frazier Potassium [Moles/Vol] 3.2 mmol/L Critically low 3.5-5.1 [facility] Comment on above: Performed By: #### C MP ####[facility] Kcwwtabnyd939[address] [place], [place] [address]Dr. Chrissy Frazier Protein [Mass/Vol] 7.7 g/dL Normal 6.4-8.2 [facility] Comment on above: Performed By: #### C MP ####[facility] Ipszjuikcp7340[address] [place], [place] [address]Dr. Chrissy Frazier Sodium [Moles/Vol] 136 mmol/L Normal 136-145 [facility] Comment on above: Performed By: #### C MP ####[facility] Xdjgscxjmk580[address] [place], [place] [address]Dr. Chrissy Frazier Urea nitrogen [Mass/Vol] 10.0 mg/dL Normal 7.0-18.0 [facility] Comment on above: Performed By: #### C MP ####[facility] Swzuqxpsgq2222[address] [place], [place] [address]Dr. Chrissy Frazier Urea nitrogen/Creatinine [Mass ratio] 9.8 mg/mg Normal [facility] Comment on above: Performed By: #### C MP ####[facility] Nhjwwqfgir4616[address] [place], [place] [address]Dr. Chrissy Frazier CBC AUTO DIFFon 07-03-2022 BASO # 0.1 103/ul Normal 0.0-0.1 [facility] Comment on above: Performed By: #### C BC ####[facility] Dezrrdrbss[address] [place], [place] [address]Dr. Chrissy Frazier Basophils/100 WBC (Bld) 0.5 % Normal 0.2-2.0 [facility] Comment on above: Performed By: #### C BC ####[facility] Avhvxtpcal129[address] [place], [place] [address]Dr. Chrissy Frazier EO # 0.1 103/ul Normal 0.0-0.7 [facility] Comment on above: Performed By: #### C BC ####[facility] Qhwifzgeoo0703 [place] [address]Dr. Chrissy Freddie Eosinophils/100 WBC (Bld) 1.3 % Normal 0.9-7.0 [facility] Comment on above: Performed By: #### C BC ####[facility] Rccdcpbpjp[address] [place], [place] [address]Dr. Chrissy Frazier Erythrocyte distribution width (RBC) [Ratio] 14.2 % Normal 11.0-15.0 [facility] Comment on above: Performed By: #### C BC ####[facility] Cezjcdcqmp019[address] [place], [place] [address]Dr. Tishrowan Frazier Hematocrit (Bld) [Volume fraction] 41.7 % Critically low 42.0-54.0 [facility] Comment on above: Performed By: #### C BC ####[facility] Qajvzbostb413[address] [place], [place] [address]Dr. Chrissy Frazier Hemoglobin (Bld) [Mass/Vol] 13.6 g/dL Critically low 14.0-18.0 [facility] Comment on above: Performed By: #### C BC ####[facility] Knlcdzwweb35[address] [place], [place] [address]Dr. Chrissy Frazier IG # 0.04 10e3/ul Critically high 0.00-0.03 The [facility] Comment on above: Performed By: #### C BC ####[facility] Sjvqsoadiv13[address] [place], [place] [address]Dr. Chrissy Frazier IG % 0.4 % Normal 0.0-0.5 [facility] Comment on above: Performed By: #### C BC ####[facility] Qhhqjcqdhx6850[address] [place], [place] [address]Dr. Chrissy Frazier LYMPH # 3.5 103/ul Normal 1.2-3.8 [facility] Comment on above: Performed By: #### C BC ####[facility] Xbmwxyffkv640[address] [place], [place] [address]Dr. Chrissy Frazier Lymphocytes/100 WBC (Bld) 33.5 % Normal 20.5-60.0 [facility] Comment on above: Performed By: #### C BC ####[facility] Eoxxcdzavv3664 [place] [address]DrNancy Frazier MANUAL DIFF REQ NO Normal [facility] Comment on above: Performed By: #### C BC ####[facility] Ryvbqevbhk3076 [place] [address]DrNancy Frazier MCH (RBC) [Entitic mass] 27.9 pg Normal 25.9-34.0 [facility] Comment on above: Performed By: #### C BC ####[facility] Gsmuilzbqc496[address] [place], [place] [address]DrNancy Frazier MCHC (RBC) [Mass/Vol] 32.6 g/dL Normal 29.9-35.2 [facility] Comment on above: Performed By: #### C BC ####[facility] Icinqyqpvp465[address] [place], [place] [address]DrNancy Frazier MCV (RBC) [Entitic vol] 85.6 fL Normal 80.0-94.0 [facility] Comment on above: Performed By: #### C BC ####[facility] Lwxtzmidkb275[address] [place], [place] [address]DrNancy Frazier MONO # 0.7 103/ul Normal 0.3-0.8 [facility] Comment on above: Performed By: #### C BC ####[facility] Svtmgxylmk3399[address] [place], [place] [address]DrNancy Frazier Monocytes/100 WBC (Bld) 6.5 % Normal 1.7-12.0 [facility] Comment on above: Performed By: #### C BC ####[facility] Ltnzynjwwa0318[address] [place], [place] [address]DrNancy Frazier NEUT # 6.1 103/ul Normal 1.4-6.5 [facility] Comment on above: Performed By: #### C BC ####[facility] Nvceerbwuo347[address] [place], [place] [address]Dr. Chrissy Frazier Neutrophils/100 WBC (Bld) 57.8 % Normal 43.0-75.0 [facility] Comment on above: Performed By: #### C BC ####[facility] Ryhbjvuxnv7213 [place] [address]DrNancy Frazier Platelet mean volume (Bld) [Entitic vol] 10.4 fL Normal 9.5-13.5 [facility] Comment on above: Performed By: #### C BC ####[facility] Ctqhqmnmer769[address] [place], [place] [address]DrNancy Frazier PLT 288 103/ul Normal 150-450 [facility] Comment on above: Performed By: #### C BC ####[facility] Dfggizbaol005[address] [place], [place] [address]DrNancy Frazier RBC 4.87 106/ul Normal 4.70-6.10 [facility] Comment on above: Performed By: #### C BC ####[facility] Lfgugtnzgi585[address] [place], [place] [address]DrNancy Frazier WBC 10.5 103/ul Normal 4.0-11.0 [facility] Comment on above: Performed By: #### C BC ####[facility] Grcfrxlidl764[address] [place], [place] [address]Dr. Chrissy Frazier PROF 14(COMP METB)on 022 Albumin [Mass/Vol] 3.6 g/dL Normal 3.4-5.0 [facility] Comment on above: Performed By: #### C MP ####[facility] Vtpcebkvcq232[address] [place], [place] [address]DrNancy Frazier Albumin/Globulin [Mass ratio] 1.1 {ratio} Normal [facility] Comment on above: Performed By: #### C MP ####[facility] Rjhahshpci210[address] [place], [place] [address]DrNancy Frazier ALP [Catalytic activity/Vol] 58 U/L Normal 46-116 [facility] Comment on above: Performed By: #### C MP ####[facility] Jvjecbplib[address] [place], [place] [address]DrNancy Frazier ALT [Catalytic activity/Vol] 30 U/L Normal 16-63 [facility] Comment on above: Performed By: #### C MP ####[facility] Lzehhmbxbt5084 [place] [address]Dr. Tishrowan Freddie Anion gap [Moles/Vol] 14.5 mmol/L Normal [facility] Comment on above: Performed By: #### C MP ####[facility] Xxmpmkqddj1929[address] [place], [place] [address]Dr. Chrissy Freddie AST [Catalytic activity/Vol] 17 U/L Normal 15-37 [facility] Comment on above: Performed By: #### C MP ####[facility] Ayriqcmhrx5279[address] [place], [place] [address]Dr. Chrissy Frazier Bilirubin [Mass/Vol] 0.6 mg/dL Normal 0.2-1.0 [facility] Comment on above: Performed By: #### C MP ####[facility] Dmhwkkokve693[address] [place], [place] [address]Dr. Chrissy Frazier Calcium [Mass/Vol] 8.4 mg/dL Critically low 8.5-10.1 [facility] Comment on above: Performed By: #### C MP ####[facility] Xikyfvhchu1723[address] [place], [place] [address]Dr. Chrissy Frazier Chloride [Moles/Vol] 106 mmol/L Normal 98-107 [facility] Comment on above: Performed By: #### C MP ####[facility] Amrrkaxkhs9[address] [place], [place] [address]Dr. Chrissy Frazier CO2 [Moles/Vol] 22.6 mmol/L Normal 21.0-32.0 [facility] Comment on above: Performed By: #### C MP ####[facility] Hzhejioqnd109[address] [place], [place] [address]Dr. Chrissy Frazier Creatinine [Mass/Vol] 1.08 mg/dL Normal 0.70-1.30 [facility] Comment on above: Performed By: #### C MP ####[facility] Htrhjutztr[address] [place], [place] [address]Dr. Chrissy Frazier EGFR-AF LATVIAN >60 Normal >=60 [facility] Comment on above: Performed By: #### C MP ####[facility] Hanfseerwa5474 [place] [id number]. Chrissy Frazier EGFR-NON AF LATVIAN >60 Normal >=60 [facility] Comment on above: Performed By: #### C MP ####[facility] Bhuodwrenr6136 [place] [id number]. Chrissy Freddie Globulin (S) [Mass/Vol] 3.3 g/dL Normal [facility] Comment on above: Performed By: #### C MP ####[facility] Xhmequqfgw1026 [place] [id number]. Chrissy Freddie Glucose [Mass/Vol] 94 mg/dL Normal 74-106 [facility] Comment on above: Performed By: #### C MP ####[facility] Poutgmuvqk4648 [place] [address]Dr. Chrissy Freddie Potassium [Moles/Vol] 3.1 mmol/L Critically low 3.5-5.1 [facility] Comment on above: Performed By: #### C MP ####[facility] Bybafwbhew6298 [place] [id number]. Chrissy Freddie Protein [Mass/Vol] 6.9 g/dL Normal 6.4-8.2 [facility] Comment on above: Performed By: #### C MP ####[facility] Akbhjgajca5705 [place] [address]Dr. Chrissy Freddie Sodium [Moles/Vol] 140 mmol/L Normal 136-145 [facility] Comment on above: Performed By: #### C MP ####[facility] Neskyefpud5585 [place] [id number]. Chrissy Freddie Urea nitrogen [Mass/Vol] 10.0 mg/dL Normal 7.0-18.0 [facility] Comment on above: Performed By: #### C MP ####[facility] Gvbfyzgmzb6311 [place] [address]Dr. Chrissy Frazier Urea nitrogen/Creatinine [Mass ratio] 9.3 mg/mg Normal [facility] Comment on above: Performed By: #### C MP ####[facility] Deivxzpzqy9674 [place] [address]Dr. Chrissy Freddie CBC AUTO DIFFon 07-02-2022 BASO # 0.0 103/ul Normal 0.0-0.1 [facility] Comment on above: Performed By: #### C BC ####[facility] Eooklpxdgi3423[address] [place], [place] [address]Dr. Chrissy Frazier Basophils/100 WBC (Bld) 0.2 % Normal 0.2-2.0 [facility] Comment on above: Performed By: #### C BC ####[facility] Mlmlnswypx9939[address] [place], [place] [address]Dr. Chrissy Frazier EO # 0.0 103/ul Normal 0.0-0.7 [facility] Comment on above: Performed By: #### C BC ####[facility] Cymtwbctls2500[address] [place], [place] [address]Dr. Chrissy Frazier Eosinophils/100 WBC (Bld) 0.0 % Critically low 0.9-7.0 [facility] Comment on above: Performed By: #### C BC ####[facility] Odqrgtzcrb978[address] [place], [place] [address]Dr. Tishrowan Frazier Erythrocyte distribution width (RBC) [Ratio] 14.2 % Normal 11.0-15.0 [facility] Comment on above: Performed By: #### C BC ####[facility] Twukruhesb7616[address] [place], [place] [address]Dr. Chrissy Frazier Hematocrit (Bld) [Volume fraction] 46.2 % Normal 42.0-54.0 [facility] Comment on above: Performed By: #### C BC ####[facility] Ehyzbzlret18[address] [place], [place] [address]Dr. Chrissy Frazier Hemoglobin (Bld) [Mass/Vol] 15.2 g/dL Normal 14.0-18.0 [facility] Comment on above: Performed By: #### C BC ####[facility] Axhryfnyjf034[address] [place], [place] [address]Dr. Chrissy Frazier IG # 0.07 10e3/ul Critically high 0.00-0.03 [facility] Comment on above: Performed By: #### C BC ####[facility] Sniwtlafnx4454 [place] [address]DrNancy Chrissy Frazier IG % 0.4 % Normal 0.0-0.5 [facility] Comment on above: Performed By: #### C BC ####[facility] Bcznnrjcya8582 [place] [address]DrNancy Chrissy Freddie LYMPH # 2.8 103/ul Normal 1.2-3.8 [facility] Comment on above: Performed By: #### C BC ####[facility] Ktlzqiesvs0838[address] [place], [place] [address]DrNancy Tishrowan Frazier Lymphocytes/100 WBC (Bld) 16.7 % Critically low 20.5-60.0 [facility] Comment on above: Performed By: #### C BC ####[facility] Jeawtbkblf18[address] [place], [place] [address]DrNancy Frazier MANUAL DIFF REQ NO Normal [facility] Comment on above: Performed By: #### C BC ####[facility] Ccxxjmcmhi9465 [place] [address]DrNancy Chrissy Freddie MCH (RBC) [Entitic mass] 28.3 pg Normal 25.9-34.0 [facility] Comment on above: Performed By: #### C BC ####[facility] Yujleaavdn88[address] [place], [place] [address]DrNancy Chrissy Freddie MCHC (RBC) [Mass/Vol] 32.9 g/dL Normal 29.9-35.2 [facility] Comment on above: Performed By: #### C BC ####[facility] Smqepasuwc[address] [place], [place] [address]DrNancy Tishrowan Frazier MCV (RBC) [Entitic vol] 86.0 fL Normal 80.0-94.0 [facility] Comment on above: Performed By: #### C BC ####[facility] Bkllueqfqf4024[address] [place], [place] [address]DrNancy Frazier MONO # 0.9 103/ul Critically high 0.3-0.[address] [facility] Comment on above: Performed By: #### C BC ####[facility] Gtnljyyqsi9560 [place] [id number]. Chrissy Frazier Monocytes/100 WBC (Bld) 5.1 % Normal 1.7-12.0 [facility] Comment on above: Performed By: #### C BC ####[facility] Mvhrwcmapz6891 [place] [id number]. Chrissy Frazier NEUT # 13.2 103/ul Critically high 1.4-6.5 [facility] Comment on above: Performed By: #### C BC ####[facility] Ehmuvvjtwg0217 [place] [id number]. Chrissy Frazier Neutrophils/100 WBC (Bld) 77.6 % Critically high 43.0-75.0 [facility] Comment on above: Performed By: #### C BC ####[facility] Mfhnobhtiz0780 [place] [address]Dr. Chrissy Frazier Platelet mean volume (Bld) [Entitic vol] 11.6 fL Normal 9.5-13.5 [facility] Comment on above: Performed By: #### C BC ####[facility] Igsviqzaxg347[address] [place], [place] [address]Dr. Chrissy Frazier PLT 317 103/ul Normal 150-450 [facility] Comment on above: Performed By: #### C BC ####[facility] Hlsrjtyeff3955 [place] [id number]. Chrissy Frazier RBC 5.37 106/ul Normal 4.70-6.10 [facility] Comment on above: Performed By: #### C BC ####[facility] Nzvxpufgsv7455 [place] [id number]. Chrissy Frazier WBC 17.1 103/ul Critically high 4.0-11.0 [facility] Comment on above: Performed By: #### C BC ####[facility] Curcxjlkrf4613 [place] [id number]. Chrissy Frazier CT ABD/PELV W CONon 07-02-[address] ABD/PELV W CON Normal [facility] H PYLORI ANTIBODY IGGon 06-21 H. PYLORI IGG ABS 0.13 Index Value Normal 0.00-0.79 [facility] Comment on above: Result Comment: Nega tive <0.80 Equivocal 0.80 - 0.89 Positive >0.89 Performed By: #### H PYLLC ####[facility] Ebqcvjsrde2954 [place] [address]Dr. Chrissy Frazier PROF 14(COMP METB)on 022 Albumin [Mass/Vol] 3.8 g/dL Normal 3.4-5.0 [facility] Comment on above: Performed By: #### C MP ####[facility] Qoynntaijt4600[address] [place], [place] [address]Dr. Chrissy Frazier Albumin/Globulin [Mass ratio] 1.0 {ratio} Normal [facility] Comment on above: Performed By: #### C MP ####[facility] Yxabycdqvx795[address] [place], [place] [address]Dr. Chrissy Frazier ALP [Catalytic activity/Vol] 68 U/L Normal 46-116 [facility] Comment on above: Performed By: #### C MP ####[facility] Bwqoywwlxo[address] [place], [place] [address]Dr. Chrissy Frazier ALT [Catalytic activity/Vol] 34 U/L Normal 16-63 [facility] Comment on above: Performed By: #### C MP ####[facility] Lvqlberwev687[address] [place], [place] [address]Dr. Chrissy Frazier Anion gap [Moles/Vol] 17.9 mmol/L Normal [facility] Comment on above: Performed By: #### C MP ####[facility] Owdvprcjdd70[address] [place], [place] [address]Dr. Chrissy Frazier AST [Catalytic activity/Vol] 24 U/L Normal 15-37 [facility] Comment on above: Performed By: #### C MP ####[facility] Trjwaogrfn09[address] [place], [place] [address]Dr. Chrissy Frazier Bilirubin [Mass/Vol] 0.6 mg/dL Normal 0.2-1.0 [facility] Comment on above: Performed By: #### C MP ####[facility] Zcifiagvrz82[address] [place] [address]Dr. Chrissy Frazier Calcium [Mass/Vol] 8.8 mg/dL Normal 8.5-10.1 [facility] Comment on above: Performed By: #### C MP ####[facility] Sbawienacv[address] [place] [address]Dr. Chrissy Frazier Chloride [Moles/Vol] 105 mmol/L Normal 98-107 [facility] Comment on above: Performed By: #### C MP ####[facility] Smgwlvowlh39[address] [place] [address]Dr. Chrissy Frazier CO2 [Moles/Vol] 18.8 mmol/L Critically low 21.0-32.0 [facility] Comment on above: Performed By: #### C MP ####[facility] Nzlluqqjjw[address] [place], [place] [address]Dr. Chrissy Frazier Creatinine [Mass/Vol] 1.15 mg/dL Normal 0.70-1.30 [facility] Comment on above: Performed By: #### C MP ####[facility] Oqssqwqyqx[address] [place], [place] [address]Dr. Chrissy Frazier EGFR-AF LATVIAN >60 Normal >=60 [facility] Comment on above: Performed By: #### C MP ####[facility] Vugydibkzm300[address] [place] [address]Dr. Chrissy Frazier EGFR-NON AF LATVIAN >60 Normal >=60 [facility] Comment on above: Performed By: #### C MP ####[facility] Kvjhsncjlc3617 [place] [address]Dr. Chrissy Frazier Globulin (S) [Mass/Vol] 3.9 g/dL Normal [facility] Comment on above: Performed By: #### C MP ####[facility] Dodetzlnee4236 [place] [address]Dr. Chrissy Frazier Glucose [Mass/Vol] 124 mg/dL Critically high 74-106 [facility] Comment on above: Performed By: #### C MP ####[facility] Ocnfdmozym5485 [place] [address]Dr. Chrissy Frazier Potassium [Moles/Vol] 3.7 mmol/L Normal 3.5-5.1 [facility] Comment on above: Performed By: #### C MP ####[facility] Rcjbynesck5014 [place] [address]Dr. Chrissy Frazier Protein [Mass/Vol] 7.7 g/dL Normal 6.4-8.2 [facility] Comment on above: Performed By: #### C MP ####[facility] Filjagupkp303[address] [place], [place] [address]Dr. Chrissy Frazier Sodium [Moles/Vol] 138 mmol/L Normal 136-145 [facility] Comment on above: Performed By: #### C MP ####[facility] Anmosnodyz2510[address] [place], [place] [address]Dr. Chrissy Frazier Urea nitrogen [Mass/Vol] 9.0 mg/dL Normal 7.0-18.0 [facility] Comment on above: Performed By: #### C MP ####[facility] Fcozzcbtnz480[address] [place], [place] [address]Dr. Chrissy Frazier Urea nitrogen/Creatinine [Mass ratio] 7.8 mg/mg Normal [facility] Comment on above: Performed By: #### C MP ####[facility] Ksftzhvyvk3129[address] [place], [place] [address]Dr. Chrissy Frazier AMMONIAon 07-01-2022 Ammonia (P) [Moles/Vol] 14 umol/L Normal 11-32 [facility] Comment on above: Performed By: #### A MM ####[facility] Fvynfxfkue0[address] [place], [place] [address]Dr. Chrissy Frazier AMYLASEon 07-01-2022 Amylase [Catalytic activity/Vol] 32 U/L Normal 25-115 [facility] Comment on above: Performed By: #### A MY, PHOS, CMP, LIPA ####[facility] Tuulczlkiy5[address] [place] [address]Dr. Chrissy Frazier CBC AUTO DIFFon 07-01-2022 BASO # 0.1 103/ul Normal 0.0-0.1 [facility] Comment on above: Performed By: #### C BC ####[facility] Jmbckebkfq4753 [place] [address]Dr. Tishrowan Freddie Basophils/100 WBC (Bld) 0.4 % Normal 0.2-2.0 [facility] Comment on above: Performed By: #### C BC ####[facility] Qkzgebvayo247[address] [place], [place] [address]Dr. Chrissy Frazier EO # 0.2 103/ul Normal 0.0-0.7 [facility] Comment on above: Performed By: #### C BC ####[facility] Nzvuuwlqqy169[address] [place], [place] [address]Dr. Chrissy Frazier Eosinophils/100 WBC (Bld) 0.9 % Normal 0.9-7.0 [facility] Comment on above: Performed By: #### C BC ####[facility] Dzgonmacuf580[address] [place], [place] [address]Dr. Chrissy Frazier Erythrocyte distribution width (RBC) [Ratio] 13.8 % Normal 11.0-15.0 [facility] Comment on above: Performed By: #### C BC ####[facility] Tvawletkxw15[address] [place], [place] [address]Dr. Chrissy Frazier Hematocrit (Bld) [Volume fraction] 46.3 % Normal 42.0-54.0 [facility] Comment on above: Performed By: #### C BC ####[facility] Jtdoujtukl[address] [place], [place] [address]Dr. Chrissy Frazier Hemoglobin (Bld) [Mass/Vol] 15.4 g/dL Normal 14.0-18.0 [facility] Comment on above: Performed By: #### C BC ####[facility] Lkdwcnzdrr8934[address] [place], [place] [address]DrNancy Frazier IG # 0.05 10e3/ul Critically high 0.00-0.03 [facility] Comment on above: Performed By: #### C BC ####[facility] Ermgiytdaf366[address] [place], [place] [address]Dr. Chrissy Frazier IG % 0.3 % Normal 0.0-0.5 [facility] Comment on above: Performed By: #### C BC ####[facility] Ymnvftmycs9992 [place] [address]DrNancy Frazier LYMPH # 2.0 103/ul Normal 1.2-3.8 [facility] Comment on above: Performed By: #### C BC ####[facility] Wfvfyutnsk6570 [place] [address]DrNancy Frazier Lymphocytes/100 WBC (Bld) 12.9 % Critically low 20.5-60.0 [facility] Comment on above: Performed By: #### C BC ####[facility] Pvuzmaofpi98[address] [place], [place] [address]DrNancy Frazier MANUAL DIFF REQ NO Normal [facility] Comment on above: Performed By: #### C BC ####[facility] Ihvbmozffv1987 [place] [address]DrNancy Frazier MCH (RBC) [Entitic mass] 28.6 pg Normal 25.9-34.0 [facility] Comment on above: Performed By: #### C BC ####[facility] Ausaefozmn[address] [place], [place] [address]DrNancy Frazier MCHC (RBC) [Mass/Vol] 33.3 g/dL Normal 29.9-35.2 [facility] Comment on above: Performed By: #### C BC ####[facility] Kiuqangdjm[address] [place], [place] [address]DrNancy Frazier MCV (RBC) [Entitic vol] 86.1 fL Normal 80.0-94.0 [facility] Comment on above: Performed By: #### C BC ####[facility] Fnzirecous4340[address] [place], [place] [address]DrNancy Frazier MONO # 0.5 103/ul Normal 0.3-0.8 [facility] Comment on above: Performed By: #### C BC ####[facility] Rexsttpqrz100[address] [place], [place] [address]DrNancy Frazier Monocytes/100 WBC (Bld) 3.0 % Normal 1.7-12.0 [facility] Comment on above: Performed By: #### C BC ####[facility] Muqhonyhgu49[address] [place] [address]Dr. Chrissy Frazier NEUT # 13.0 103/ul Critically high 1.4-6.5 [facility] Comment on above: Performed By: #### C BC ####[facility] Shyatntesu6776 [place] [address]Dr. Chrissy Frazier Neutrophils/100 WBC (Bld) 82.5 % Critically high 43.0-75.0 [facility] Comment on above: Performed By: #### C BC ####[facility] Ydmugxdyel143[address] [place], [place] [address]Dr. Chrissy Frazier Platelet mean volume (Bld) [Entitic vol] 10.0 fL Normal 9.5-13.5 [facility] Comment on above: Performed By: #### C BC ####[facility] Ieniuwdrzp88[address] [place], [place] [address]Dr. Crhissy Frazier PLT 370 103/ul Normal 150-450 [facility] Comment on above: Performed By: #### C BC ####[facility] Wqdchdcphv66[address] [place], [place] [address]Dr. Chrissy Frazier RBC 5.38 106/ul Normal 4.70-6.10 [facility] Comment on above: Performed By: #### C BC ####[facility] Crjyvqebug209[address] [place], [place] [address]Dr. Chrissy Frazier WBC 15.8 103/ul Critically high 4.0-11.0 [facility] Comment on above: Performed By: #### C BC ####[facility] Rsvqarryxk0025[address] [place], [place] [address]Dr. Chrissy Frazier CULTURE URINEon 07-01-2022 CULTURE URINE Culture Observations: No growth Normal [facility] Comment on above: Performed By: #### U RCX ####[facility] Fjuwobcbew[address] [place], [place] [address]Dr. Chrissy Frazier Covid-19 PCR (CVDTBH)on 06-21 SARS-CoV-2 (COVID-19) RNA RHIANNON+probe Ql (Unsp spec) Not detected Normal NOT DETECTED [facility] Comment on above: Result Comment: When diagnostic [...] for this test is supported by the [employer] of [employer] and Human Service's declaration that [...] be used). Performed By: #### C VDTBH ####[facility] Mvreltnhhi25[address] [place] [address]Dr. Chrissy Frazier DRUG SCREEN RAPID (URINE)on 07-01-2022 AMP Negative Normal NEGATIVE [facility] Comment on above: Performed By: #### D REYES UAMIC ####[facility] Avmncqhlyx[address] [place] [id number]. Chrissy Frazier BAR Negative Normal NEGATIVE [facility] Comment on above: Performed By: #### D REYES UAMIC ####[facility] Wrchfyvocq1903 [place] [id number]. Chrissy Frazier BUP Negative Normal NEGATIVE [facility] Comment on above: Performed By: #### D REYES UAMIC ####[facility] Nmbsypwyfy9461 [place] [id number]. Chrissy Frazier BZO Negative Normal NEGATIVE [facility] Comment on above: Performed By: #### D REYES UAMIC ####[facility] Elymdldoyu7108 [place] [id number]. Chrissy Frazier LAUREN Negative Normal NEGATIVE [facility] Comment on above: Performed By: #### Amelie CHAMBERS UAMIC ####[facility] Myzlbeycdf[address] [place], [place] [address]Dr. Chrissy Frazier CUT-OFFS SEE BELOW Normal [facility] Comment on above: Result [...] ng/mL Performed By: #### Amelie CHAMBERS UAMIC ####[facility] Xzynhafmqg[address] [place], [place] [address]Dr. Chrissy Frazier DRUG CUT HEADER DRUG CLASS TEST SYSTEM CUT-OFF CONCENTRATIONS ARE FOLLOWS: Normal [facility] Comment on above: Performed By: #### Amelie CHAMBERS UAMIC ####[facility] Ypfhzspjbs[address] [place], [place] [address]Dr. Chrissy Frazier mAMP Negative Normal NEGATIVE [facility] Comment on above: Performed By: #### Amelie CHAMBERS UAMIC ####[facility] Zbgeqmignu77[address] [place], [place] [address]Dr. Chrissy Frazier MTD Negative Normal NEGATIVE [facility] Comment on above: Performed By: #### Amelie CHAMBERS UAMIC ####[facility] Lyedzvasgi45[address] [place], [place] [address]Dr. Chrissy Frazier OPI Negative Normal NEGATIVE [facility] Comment on above: Performed By: #### Amelie CHAMBERS UAMIC ####[facility] Cgcnlphbqo2215[address] [place], [place] [address]Dr. Chrissy Frazier OXY Negative Normal NEGATIVE [facility] Comment on above: Performed By: #### D REYES UAMIC ####[facility] Ukjlfflejv2503 [place] [address]Dr. Chrissy Frazier PCP Negative Normal NEGATIVE [facility] Comment on above: Performed By: #### D REYES, UAMIC ####[facility] Henwpktesb3150 [place] [address]Dr. Chrissy Frazier PPX Negative Normal NEGATIVE [facility] Comment on above: Performed By: #### D REYES, UAMIC ####[facility] Eljywmbugn6[address] [place] [address]Dr. Chrissy Frazier TCA Negative Normal NEGATIVE [facility] Comment on above: Performed By: #### D REYES UAMIC ####[facility] Rvjrhrwxfp0650 [place] [address]Dr. Chrissy Frazier THC Positive Abnormal NEGATIVE [facility] Comment on above: Performed By: #### D REYES UAMIC ####[facility] Aqrgzqvbmt4455 [place] [address]Dr. Chrissy Frazier LACTATE/LACTIC ACIDon 2021 Lactate [Moles/Vol] 4.4 mmol/L Critically high 0.4-1.9 [facility] Comment on above: Performed By: #### L ACT ####[facility] Dpvdeqmnya[address] [place], [place] [address]Dr. Chrissy Frazier LIPASEon 07-01-2022 Lipase [Catalytic activity/Vol] 57.0 U/L Critically low 73.0-393.0 [facility] Comment on above: Performed By: #### A MY, PHOS, CMP, LIPA ####[facility] Aqhkplhfvb1397 [place] [address]Dr. Chrissy Frazier PHOSPHORUSon 07-01-2022 Phosphate [Mass/Vol] 1.4 mg/dL Critically low 2.6-4.7 [facility] Comment on above: Performed By: #### A MY, PHOS, CMP, LIPA ####[facility] Bunvfgzege[address] [place], [place] [address]Dr. Chrissy Frazier PROF 14(COMP METB)on 022 Albumin [Mass/Vol] 4.2 g/dL Normal 3.4-5.0 [facility] Comment on above: Performed By: #### A MY, PHOS, CMP, LIPA ####[facility] Bowayiortm32[address] [place] [address]Dr. Chrissy Frazier Albumin/Globulin [Mass ratio] 1.1 {ratio} Normal [facility] Comment on above: Performed By: #### A MY, PHOS, CMP, LIPA ####[facility] Lvpfjnignf1983 [place] [address]Dr. Chrissy Frazier ALP [Catalytic activity/Vol] 73 U/L Normal 46-116 [facility] Comment on above: Performed By: #### A MY, PHOS, CMP, LIPA ####[facility] Xfpqbnmzgh722[address] [place], [place] [address]Dr. Chrissy Frazier ALT [Catalytic activity/Vol] 43 U/L Normal 16-63 [facility] Comment on above: Performed By: #### A MY, PHOS, CMP, LIPA ####[facility] Ephzsdlvxo359[address] [place], [place] [address]Dr. Chrissy Frazier Anion gap [Moles/Vol] 19.0 mmol/L Normal [facility] Comment on above: Performed By: #### A MY, PHOS, CMP, LIPA ####[facility] Rdguxjmfqu0318 [place] [address]Dr. Chrissy Farzier AST [Catalytic activity/Vol] 21 U/L Normal 15-37 [facility] Comment on above: Performed By: #### A MY, PHOS, CMP, LIPA ####[facility] Fepydzdslt7099 [place] [address]Dr. Chrissy Frazier Bilirubin [Mass/Vol] 0.5 mg/dL Normal 0.2-1.0 [facility] Comment on above: Performed By: #### A MY, PHOS, CMP, LIPA ####[facility] Vnscmduxux55[address] [place], [place] [address]Dr. Chrissy Frazier Calcium [Mass/Vol] 9.3 mg/dL Normal 8.5-10.1 [facility] Comment on above: Performed By: #### A MY, PHOS, CMP, LIPA ####[facility] Xfnikuvkmi4295 [place] [address]Dr. Chrissy Frazier Chloride [Moles/Vol] 103 mmol/L Normal 98-107 [facility] Comment on above: Performed By: #### A MY, PHOS, CMP, LIPA ####[facility] Cjenxzvxtu3718 [place] [address]Dr. Chrissy Frazier CO2 [Moles/Vol] 21.1 mmol/L Normal 21.0-32.0 [facility] Comment on above: Performed By: #### A MY, PHOS, CMP, LIPA ####[facility] Onoobqoplg8[address] [place], [place] [address]Dr. Chrissy Frazier Creatinine [Mass/Vol] 1.44 mg/dL Critically high 0.70-1.30 [facility] Comment on above: Performed By: #### A MY, PHOS, CMP, LIPA ####[facility] Mnrpxafusx19[address] [place], [place] [address]Dr. Chrissy Frazier EGFR-AF LATVIAN >60 Normal >=60 [facility] Comment on above: Performed By: #### A MY, PHOS, CMP, LIPA ####[facility] Jokweyzyjw0532 [place] [address]Dr. Chrissy Frazier EGFR-NON AF LATVIAN 57 mL/min/1.73m2 Critically low >=60 [facility] Comment on above: Performed By: #### A MY, PHOS, CMP, LIPA ####[facility] Wbnetadllv4838 [place] [address]Dr. Chrissy Frazier Globulin (S) [Mass/Vol] 3.9 g/dL Normal [facility] Comment on above: Performed By: #### A MY, PHOS, CMP, LIPA ####[facility] Qguitplbym0446 [place] [address]Dr. Chrissy Frazier Glucose [Mass/Vol] 148 mg/dL Critically high 74-106 [facility] Comment on above: Performed By: #### A MY, PHOS, CMP, LIPA ####[facility] Cjkzowmuap0748 [place] [address]Dr. Chrissy Frazier Potassium [Moles/Vol] 3.1 mmol/L Critically low 3.5-5.1 [facility] Comment on above: Performed By: #### A MY, PHOS, CMP, LIPA ####[facility] Mvhlynlrio4631 [place] [address]Dr. hCrissy Frazier Protein [Mass/Vol] 8.1 g/dL Normal 6.4-8.2 [facility] Comment on above: Performed By: #### A MY, PHOS, CMP, LIPA ####[facility] Ozgcjpeqqq8304 [place] [address]Dr. Chrissy Frazier Sodium [Moles/Vol] 140 mmol/L Normal 136-145 [facility] Comment on above: Performed By: #### A MY, PHOS, CMP, LIPA ####[facility] Xshjkfpenm3567 [place] [address]Dr. Chrissy Frazier Urea nitrogen [Mass/Vol] 10.0 mg/dL Normal 7.0-18.0 [facility] Comment on above: Performed By: #### A MY, PHOS, CMP, LIPA ####[facility] Cxkrrgdtvm5686 [place] [address]Dr. Chrissy Frazier Urea nitrogen/Creatinine [Mass ratio] 6.9 mg/mg Normal [facility] Comment on above: Performed By: #### A MY, PHOS, CMP, LIPA ####[facility] Ouguxznsvl[address] [place] [address]Dr. Chrissy Frazier UA RANDOM W/MICROSCOPICon BACTERIA TRACE Abnormal NONE SEEN [facility] Comment on above: Performed By: #### D SORAYA CHAMBERSMIC ####[facility] Luxaplpghg64[address] [place] [address]Dr. Tishrowan Frazier Bilirubin Ql (U) Negative Normal NEGATIVE [facility] Comment on above: Performed By: #### D REYES UAMIC ####[facility] Qlgvzsomwq318[address] [place], [place] [address]Dr. Tishrowan Freddie CAST NONE SEEN Normal NONE SEEN [facility] Comment on above: Performed By: #### Amelie CHAMBERS UAMIC ####[facility] Ypmqvuerwy40[address] [place], [place] [address]Dr. Chrissy Frazier Clarity (U) CLEAR Normal CLEAR [facility] Comment on above: Performed By: #### Amelie CHAMBERS UAMIC ####[facility] Dtpgmicbnn770[address] [place], [place] [address]Dr. Chrissy Frazier Color (U) YELLOW Normal YELLOW [facility] Comment on above: Performed By: #### Amelie CHAMBERS UAMIC ####[facility] Tjmjpwplax[address] [place], [place] [address]Dr. Chrissy Frazier Crystals LM Nom (Urine sed) NONE SEEN Normal NONE SEEN [facility] Comment on above: Performed By: #### Amelie CHAMBERS UAMIC ####[facility] Rltksntkat8[address] [place], [place] [address]Dr. Chrissy Frazier Epithelial cells LM Ql (Urine sed) RARE Normal NONE SEEN /RARE [facility] Comment on above: Performed By: #### Amelie CHAMBERS UAMIC ####[facility] Nqcijrywal[address] [place], [place] [address]Dr. Chrissy Frazier Glucose Ql (U) Negative Normal NEGATIVE [facility] Comment on above: Performed By: #### Amelie CHAMBERS UAMIC ####[facility] Uvqukvlvmd[address] [place], [place] [address]Dr. Chrissy Frazier Hemoglobin Ql (U) Negative Normal NEGATIVE [facility] Comment on above: Performed By: #### Amelie CHAMBERS UAMIC ####[facility] Viifdizcir7933[address] [place], [place] [address]Dr. Chrissy Frazier Ketones Ql (U) 40 mg/dl Abnormal NEGATIVE [facility] Comment on above: Performed By: #### Amelie CHAMBERS UAMIC ####[facility] Dnmasixafe5[address] [place], [place] [address]Dr. Chrissy Frazier LEUKOCYTES Negative Normal NEGATIVE [facility] Comment on above: Performed By: #### Amelie CHAMBERS UAMIC ####[facility] Igcjocalvn1415 [place] [address]Dr. Chrissy Frazier MUCOUS MODERATE Abnormal NONE SEEN [facility] Comment on above: Performed By: #### Amelie CHAMBERS UAMIC ####[facility] Dxtxzkufve9008 [place] [address]Dr. Chrissy Frazier Nitrite Ql (U) Negative Normal NEGATIVE [facility] Comment on above: Performed By: #### D REYES UAMIC ####[facility] Yfpqmqnqur[address] [place], [place] [address]Dr. Chrissy Frazier pH (U) 6.0 [pH] Normal 5-9 [facility] Comment on above: Performed By: #### Amelie CHAMBERS UAMIC ####[facility] Yplctnfall6949 [place] [address]Dr. Chrissy Frazier RBC 0-2 Normal 0-2 [facility] Comment on above: Performed By: #### Amelie CHAMBERS UAMIC ####[facility] Hhugbxmzra34[address] [place], [place] [address]Dr. Chrissy Frazier SPEC GRAVITY 1.020 Normal 1.005-<=1.[address] [facility] Comment on above: Performed By: #### Amelie CHAMBERS UAMIC ####[facility] Jhrhkupoud15[address] [place], [place] [address]Dr. Chrissy Frazier UA PROTEIN Negative Normal NEGATIVE/ TRACE The [facility] Comment on above: Performed By: #### Amelie CHAMBERS UAMIC ####[facility] Gemwsfqcrl8[address] [place], [place] [address]Dr. Chrissy Frazier Urobilinogen Qn (U) 0.2 {Estrellita'U}/dL Normal 0.2 - 1. 0 [facility] Comment on above: Performed By: #### Amelie CHAMBERS UAMIC ####[facility] Goirpgfqyc23[address] [place], [place] [address]Dr. Chrissy Frazier WBC 0-2 Abnormal NONE SEEN [facility] Comment on above: Performed By: #### Amelie CHAMBERS UAMIC ####[facility] Mvnmfqpfjr6752 [place], [place] [address]Ur. Chrissy Frazier XR ABD FLAT UP_PA Enoch 07-01 XR ABD FLAT UP_PA CH Normal [facility] Covid-19 PCR (CVDTB)on SARS-CoV-2 (COVID-19) RNA RHIANNON+probe Ql (Unsp spec) Not detected Normal NOT DETECTED [facility] Comment on above: Result Comment: When diagnostic [...] for this test is supported by the [employer] Puller of Health and Human Service's declaration that [...] longer be used). Performed By: #### [facility] ####[facility] Gq[address]wk[address] [place], [place] [address]Pt. Chrissy Frazier SYMPTOMATIC COVID-19 ANTIGEN on 04-23-2022 EUA Statement SEE BELOW Normal [facility] Comment on above: Result Comment: This [...] revoked sooner. Performed By: #### C VDAGS ####[facility] Rrhvexwkxm448[address] [place], [place] [address]Dr. Chrissy Frazier SARS-CoV-2 (COVID-19) RNA RHIANNON+probe Ql (Unsp spec) Negative Normal NEGATIVE [facility] Comment on above: Performed By: #### C VDAGS ####[facility] Gvfchbefiz[address] [place], [place] [address]Dr. Chrissy Frazier AMYLASEon 04-04-2022 Amylase [Catalytic activity/Vol] 40 U/L Normal 25-115 [facility] Comment on above: Performed By: #### C MPTERRENCE, LIPA ####[facility] Waxewhjipv[address] [place], [place] [address]Dr. Chrissy Frazier CBC AUTO DIFFon 04-04-2022 BASO # 0.1 103/ul Normal 0.0-0.1 [facility] Comment on above: Performed By: #### C BC ####[facility] Ntljmavvjn[address] [place], [place] [address]Dr. Chrissy Frazier Basophils/100 WBC (Bld) 0.4 % Normal 0.2-2.0 [facility] Comment on above: Performed By: #### C BC ####[facility] Htoropmrlh[address] [place], [place] [address]Dr. Chrissy Frazier EO # 0.1 103/ul Normal 0.0-0.7 [facility] Comment on above: Performed By: #### C BC ####[facility] Hxtldslxjy622[address] [place], [place] [address]Dr. Chrissy Frazier Eosinophils/100 WBC (Bld) 0.6 % Critically low 0.9-7.0 [facility] Comment on above: Performed By: #### C BC ####[facility] Edrynoodbh70[address] [place], [place] [address]Dr. Chrissy Frazier Erythrocyte distribution width (RBC) [Ratio] 13.2 % Normal 11.0-15.0 [facility] Comment on above: Performed By: #### C BC ####[facility] Wirpfmcggx[address] [place] [address]Dr. Chrissy Frazier Hematocrit (Bld) [Volume fraction] 48.3 % Normal 42.0-54.0 [facility] Comment on above: Performed By: #### C BC ####[facility] Zsnwwlnhyj24[address] [place] [address]Dr. Chrissy Frazier Hemoglobin (Bld) [Mass/Vol] 16.1 g/dL Normal 14.0-18.0 [facility] Comment on above: Performed By: #### C BC ####[facility] Dshjcyomdl994[address] [place], [place] [address]Dr. Chrissy Frazier IG # 0.12 10e3/ul Critically high 0.00-0.03 [facility] Comment on above: Performed By: #### C BC ####[facility] Dgetglyoky366[address] [place], [place] [address]Dr. Tishrowan Frazier IG % 0.9 % Critically high 0.0-0.5 [facility] Comment on above: Performed By: #### C BC ####[facility] Clwrnwfpks814[address] [place], [place] [address]Dr. Chrissy Freddie LYMPH # 3.0 103/ul Normal 1.2-3.8 [facility] Comment on above: Performed By: #### C BC ####[facility] Caxpzqwqkn440[address] [place], [place] [address]DrNancy Tishrowan Frazier Lymphocytes/100 WBC (Bld) 22.3 % Normal 20.5-60.0 [facility] Comment on above: Performed By: #### C BC ####[facility] Xvmfvssjyg9[address] [place], [place] [address]Dr. Tishrowan Frazier MANUAL DIFF REQ NO Normal [facility] Comment on above: Performed By: #### C BC ####[facility] Xbczuyvyik258[address] [place], [place] [address]DrNancy Chrissy Freddie MCH (RBC) [Entitic mass] 28.6 pg Normal 25.9-34.0 [facility] Comment on above: Performed By: #### C BC ####[facility] Rjyebvaior[address] [place] [id number]. Tishrowan Frazier MCHC (RBC) [Mass/Vol] 33.3 g/dL Normal 29.9-35.2 [facility] Comment on above: Performed By: #### C BC ####[facility] Qkyxkvjxop6920 [place] [id number]. Chrissy Frazier MCV (RBC) [Entitic vol] 85.9 fL Normal 80.0-94.0 [facility] Comment on above: Performed By: #### C BC ####[facility] Hmvdsrqiak[address] [place], [place] [address]Dr. Chrissy Frazier MONO # 0.8 103/ul Normal 0.3-0.8 [facility] Comment on above: Performed By: #### C BC ####[facility] Cssdxbtgfh2938[address] [place], [place] [address]Dr. Chrissy Frazier Monocytes/100 WBC (Bld) 5.7 % Normal 1.7-12.0 [facility] Comment on above: Performed By: #### C BC ####[facility] Suyebezogv9[address] [place], [place] [address]Dr. Chrissy Frazier NEUT # 9.3 103/ul Critically high 1.4-6.[address] [facility] Comment on above: Performed By: #### C BC ####[facility] Zyhhzhwwhv[address] [place], [place] [address]Dr. Chrissy Frazier Neutrophils/100 WBC (Bld) 70.1 % Normal 43.0-75.0 [facility] Comment on above: Performed By: #### C BC ####[facility] Jgrjffuudq6[address] [place], [place] [address]Dr. Chrissy Frazier Platelet mean volume (Bld) [Entitic vol] 10.3 fL Normal 9.5-13.5 [facility] Comment on above: Performed By: #### C BC ####[facility] Izkzhkkrta[address] [place], [place] [address]Dr. Chrissy Frazier PLT 461 103/ul Critically high 150-[address] [facility] Comment on above: Performed By: #### C BC ####[facility] Zimtyitakq3[address] [place] [address]Dr. Tishrowan Freddie RBC 5.62 106/ul Normal 4.70-6.10 [facility] Comment on above: Performed By: #### C BC ####[facility] Ezuyggonrk6084 [place] [address]Dr. Chrissy Frazier WBC 13.3 103/ul Critically high 4.0-11.0 [facility] Comment on above: Performed By: #### C BC ####[facility] Whuorlujnj96[address] [place] [address]Dr. Chrissy Frazier LIPASEon 04-04-2022 Lipase [Catalytic activity/Vol] 118.0 U/L Normal 73.0-393.0 [facility] Comment on above: Performed By: #### C MP, TERRENCE, LIPA ####[facility] Nmppsimlqc119[address] [place] [address]Dr. Chrissy Frazier PROF 14(COMP METB)on 022 Albumin [Mass/Vol] 4.3 g/dL Normal 3.4-5.0 [facility] Comment on above: Performed By: #### C MP, TERRENCE, LIPA ####[facility] Bvmanvkmqz994[address] [place], [place] [address]Dr. Chrissy Frazier Albumin/Globulin [Mass ratio] 1.0 {ratio} Normal [facility] Comment on above: Performed By: #### C MP, TERRENCE, LIPA ####[facility] Vvqselakfg5284 [place] [address]Dr. Chrissy Frazier ALP [Catalytic activity/Vol] 84 U/L Normal 46-116 [facility] Comment on above: Performed By: #### C MP, TERRENCE, LIPA ####[facility] Giqnwbjjmz3448 [place] [address]Dr. Chrissy Frazier ALT [Catalytic activity/Vol] 81 U/L Critically high 16-63 [facility] Comment on above: Performed By: #### C MP, TERRENCE, LIPA ####[facility] Ajhkgxjmty474[address] [place], [place] [address]Dr. Chrissy Frazier Anion gap [Moles/Vol] 17.9 mmol/L Normal [facility] Comment on above: Performed By: #### C TERRENCE ADAIR, LIPA ####[facility] Jraivxutqv88[address] [place] [address]Dr. Chrissy Frazier AST [Catalytic activity/Vol] 25 U/L Normal 15-37 [facility] Comment on above: Performed By: #### C MANA TERRENCE, LIPA ####[facility] Auufwtgzmt6034[address] [place], [place] [address]Dr. Chrissy Frazier Bilirubin [Mass/Vol] 0.5 mg/dL Normal 0.2-1.0 [facility] Comment on above: Performed By: #### C TERRENCE ADAIR, LIPA ####[facility] Tzvfxqjprw[address] [place], [place] [address]Dr. Chrissy Frazier Calcium [Mass/Vol] 9.6 mg/dL Normal 8.5-10.1 [facility] Comment on above: Performed By: #### C MANA TERRENCE, LIPA ####[facility] Mljyhpsskp204[address] [place], [place] [address]Dr. Chrissy Frazier Chloride [Moles/Vol] 101 mmol/L Normal 98-107 [facility] Comment on above: Performed By: #### C MANA TERRENCE, LIPA ####[facility] Lfqwsghawg[address] [place], [place] [address]Dr. Chrissy Frazier CO2 [Moles/Vol] 18.6 mmol/L Critically low 21.0-32.0 [facility] Comment on above: Performed By: #### C MANA TERRENCE, LIPA ####[facility] Mdjqjdtupe430[address] [place], [place] [address]Dr. Chrisys Frazier Creatinine [Mass/Vol] 1.39 mg/dL Critically high 0.70-1.30 [facility] Comment on above: Performed By: #### C MP, TERRENCE, LIPA ####[facility] Rqvouxhdev30[address] [place], [place] [address]Dr. Chrissy Frazier EGFR-AF LATVIAN >60 Normal >=60 [facility] Comment on above: Performed By: #### C MP, TERRENCE, LIPA ####[facility] Hxoirewisu77[address] [place] [address]Dr. Chrissy Frazier EGFR-NON AF LATVIAN 59 mL/min/1.73m2 Critically low >=60 [facility] Comment on above: Performed By: #### C MP, TERRENCE, LIPA ####[facility] Xphmeawjmd9675 [place] [address]Dr. Chrissy Frazier Globulin (S) [Mass/Vol] 4.3 g/dL Normal [facility] Comment on above: Performed By: #### C MP, TERRENCE, LIPA ####[facility] Inwwvsziwu9336 [place] [address]Dr. Chrissy Frazier Glucose [Mass/Vol] 132 mg/dL Critically high 74-106 [facility] Comment on above: Performed By: #### C MP, TERRENCE, LIPA ####[facility] Jrijunxsus033[address] [place], [place] [address]Dr. Chrissy Frazier Potassium [Moles/Vol] 3.5 mmol/L Normal 3.5-5.1 [facility] Comment on above: Performed By: #### C MP, TERRENCE, LIPA ####[facility] Tvytackssl233[address] [place], [place] [address]Dr. Chrissy Frazier Protein [Mass/Vol] 8.6 g/dL Critically high 6.4-8.2 [facility] Comment on above: Performed By: #### C MP, TERRENCE, LIPA ####[facility] Udlnigzoib6118 [place] [address]Dr. Chrissy Frazier Sodium [Moles/Vol] 134 mmol/L Critically low 136-145 [facility] Comment on above: Performed By: #### C MP, TERRENCE, LIPA ####[facility] Uygmhnlpov6146 [place] [address]Dr. Chrissy Frazier Urea nitrogen [Mass/Vol] 8.0 mg/dL Normal 7.0-18.0 [facility] Comment on above: Performed By: #### C MP, TERRENCE, LIPA ####[facility] Oxnggqbszt6832[address] [place], [place] [address]Dr. Chrissy Frazier Urea nitrogen/Creatinine [Mass ratio] 5.8 mg/mg Normal [facility] Comment on above: Performed By: #### C TERRENCE ADAIR LIPA ####[facility] Ljdnqsfvcp69[address] [place] [address]Dr. Chrissy Frazier XR ABD FLAT UP_PA Enoch 04-04 XR ABD FLAT UP_PA CH Normal [facility] AMMONIAon 03-31-2022 Ammonia (P) [Moles/Vol] 19 umol/L Normal 11-32 [facility] Comment on above: Performed By: #### A MM ####[facility] Mhskgmysze[address] [place], [place] [address]Dr. Chrissy Frazier CBC AUTO DIFFon 03-31-2022 BASO # 0.1 103/ul Normal 0.0-0.1 [facility] Comment on above: Performed By: #### C BC ####[facility] Mfevqnzsgb90[address] [place], [place] [address]Dr. Chrissy Frazier Basophils/100 WBC (Bld) 0.5 % Normal 0.2-2.0 [facility] Comment on above: Performed By: #### C BC ####[facility] Lgsbtbugvc229[address] [place], [place] [address]DrNancy Frazier EO # 0.2 103/ul Normal 0.0-0.7 [facility] Comment on above: Performed By: #### C BC ####[facility] Wakkieyvej88[address] [place], [place] [address]Dr. Chrissy Frazier Eosinophils/100 WBC (Bld) 1.6 % Normal 0.9-7.0 [facility] Comment on above: Performed By: #### C BC ####[facility] Bxbrseyswu214[address] [place], [place] [address]Dr. Chrissy Frazier Erythrocyte distribution width (RBC) [Ratio] 13.2 % Normal 11.0-15.0 [facility] Comment on above: Performed By: #### C BC ####[facility] Eftgimeihx6536[address] [place], [place] [address]Dr. Chrissy Frazier Hematocrit (Bld) [Volume fraction] 42.1 % Normal 42.0-54.0 [facility] Comment on above: Performed By: #### C BC ####[facility] Ijsxjaoolq4071 [place] [address]Dr. Chrissy Frazier Hemoglobin (Bld) [Mass/Vol] 14.3 g/dL Normal 14.0-18.0 [facility] Comment on above: Performed By: #### C BC ####[facility] Ngrayslqgd4401[address] [place], [place] [address]Dr. Chrissy Frazier IG # 0.05 10e3/ul Critically high 0.00-0.03 [facility] Comment on above: Performed By: #### C BC ####[facility] Xdomvrvhdq3339[address] [place], [place] [address]Dr. Chrissy Frazier IG % 0.5 % Normal 0.0-0.5 [facility] Comment on above: Performed By: #### C BC ####[facility] Kbhultieqx8744[address] [place], [place] [address]Dr. Chrissy Frazier LYMPH # 2.9 103/ul Normal 1.2-3.8 [facility] Comment on above: Performed By: #### C BC ####[facility] Rikkbztjek914[address] [place], [place] [address]Dr. Chrissy Frazier Lymphocytes/100 WBC (Bld) 25.7 % Normal 20.5-60.0 [facility] Comment on above: Performed By: #### C BC ####[facility] Rycydicqsi238[address] [place], [place] [address]Dr. Chrissy Frazier MANUAL DIFF REQ NO Normal [facility] Comment on above: Performed By: #### C BC ####[facility] Trxjpzkcix701[address] [place], [place] [address]Dr. Chrissy Frazier MCH (RBC) [Entitic mass] 29.2 pg Normal 25.9-34.0 [facility] Comment on above: Performed By: #### C BC ####[facility] Jtxxgygfjt0626[address] [place], [place] [address]Dr. Chrissy Frazier MCHC (RBC) [Mass/Vol] 34.0 g/dL Normal 29.9-35.2 [facility] Comment on above: Performed By: #### C BC ####[facility] Njveumqjvj7272 [place] [address]DrNancy Frazier MCV (RBC) [Entitic vol] 85.9 fL Normal 80.0-94.0 [facility] Comment on above: Performed By: #### C BC ####[facility] Zletzsvitv[address] [place], [place] [address]DrNancy Frazier MONO # 1.0 103/ul Critically high 0.3-0.[address] [facility] Comment on above: Performed By: #### C BC ####[facility] Qjtsiohrmf805[address] [place], [place] [address]DrNancy Frazier Monocytes/100 WBC (Bld) 8.6 % Normal 1.7-12.0 [facility] Comment on above: Performed By: #### C BC ####[facility] Hpptuydfes6034[address] [place], [place] [address]DrNancy Frazier NEUT # 7.0 103/ul Critically high 1.4-6.[address] [facility] Comment on above: Performed By: #### C BC ####[facility] Ybhinsgkvj4415[address] [place], [place] [address]DrNancy Frazier Neutrophils/100 WBC (Bld) 63.1 % Normal 43.0-75.0 [facility] Comment on above: Performed By: #### C BC ####[facility] Ckajxqtzfc0822[address] [place], [place] [address]DrNancy Frazier Platelet mean volume (Bld) [Entitic vol] 10.4 fL Normal 9.5-13.5 [facility] Comment on above: Performed By: #### C BC ####[facility] Gkomjuowss0530[address] [place], [place] [address]DrNancy Frazier PLT 308 103/ul Normal 150-450 [facility] Comment on above: Performed By: #### C BC ####[facility] Tbrykepoik204[address] [place], [place] [address]DrNancy Frazier RBC 4.90 106/ul Normal 4.70-6.10 [facility] Comment on above: Performed By: #### C BC ####[facility] Mbwawrjhdk6092 [place] [id number]. Chrissy Frazier WBC 11.1 103/ul Critically high 4.0-11.0 [facility] Comment on above: Performed By: #### C BC ####[facility] Lzvacihszt4854 [place] [address]DrNancy Frazier PROF 14(COMP METB)on 022 Albumin [Mass/Vol] 3.5 g/dL Normal 3.4-5.0 [facility] Comment on above: Performed By: #### C MP ####[facility] Qvcaljndor3524[address] [place], [place] [address]DrNancy Frazier Albumin/Globulin [Mass ratio] 0.9 {ratio} Normal [facility] Comment on above: Performed By: #### C MP ####[facility] Eszcypsjdo101[address] [place], [place] [address]Dr. Chrissy Frazier ALP [Catalytic activity/Vol] 68 U/L Normal 46-116 [facility] Comment on above: Performed By: #### C MP ####[facility] Pjjafzmwwu[address] [place], [place] [address]DrNancy Frazier ALT [Catalytic activity/Vol] 113 U/L Critically high 16-63 [facility] Comment on above: Performed By: #### C MP ####[facility] Ivgwprblen[address] [place], [place] [address]DrNancy Frazier Anion gap [Moles/Vol] 14.0 mmol/L Normal [facility] Comment on above: Performed By: #### C MP ####[facility] Apunzesqxd385[address] [place], [place] [address]DrNancy Frazier AST [Catalytic activity/Vol] 31 U/L Normal 15-37 [facility] Comment on above: Performed By: #### C MP ####[facility] Cfjuqjnzbw748[address] [place], [place] [address]DrNancy Frazier Bilirubin [Mass/Vol] 0.6 mg/dL Normal 0.2-1.0 [facility] Comment on above: Performed By: #### C MP ####[facility] Znjitiowyd9288 [place] [address]Dr. Chrissy Frazier Calcium [Mass/Vol] 8.4 mg/dL Critically low 8.5-10.1 [facility] Comment on above: Performed By: #### C MP ####[facility] Pkdkauvwpj1465 [place] [address]Dr. Chrissy Frazier Chloride [Moles/Vol] 101 mmol/L Normal 98-107 [facility] Comment on above: Performed By: #### C MP ####[facility] Fztuiosdkc6526[address] [place], [place] [address]Dr. Chrissy Frazier CO2 [Moles/Vol] 24.2 mmol/L Normal 21.0-32.0 [facility] Comment on above: Performed By: #### C MP ####[facility] Bceipzbaax080[address] [place], [place] [address]Dr. Chrissy Freddie Creatinine [Mass/Vol] 1.15 mg/dL Normal 0.70-1.30 [facility] Comment on above: Performed By: #### C MP ####[facility] Nwlvwjhpih[address] [place], [place] [address]Dr. Chrissy Freddie EGFR-AF LATVIAN >60 Normal >=60 [facility] Comment on above: Performed By: #### C MP ####[facility] Afhphjwfvd9114 [place] [address]Dr. Tishrowan Freddie EGFR-NON AF LATVIAN >60 Normal >=60 [facility] Comment on above: Performed By: #### C MP ####[facility] Yhxumsyzdm3754 [place] [address]Dr. Chrissy Frazier Globulin (S) [Mass/Vol] 3.8 g/dL Normal [facility] Comment on above: Performed By: #### C MP ####[facility] Elgzmamysk429[address] [place], [place] [address]Dr. Chrissy Frazier Glucose [Mass/Vol] 100 mg/dL Normal 74-106 [facility] Comment on above: Performed By: #### C MP ####[facility] Aflwvkiahh8955 [place] [address]Dr. Chrissy Freddie Potassium [Moles/Vol] 3.2 mmol/L Critically low 3.5-5.1 [facility] Comment on above: Performed By: #### C MP ####[facility] Ojrxakfqhf125[address] [place], [place] [address]Dr. Chrissy Frazier Protein [Mass/Vol] 7.3 g/dL Normal 6.4-8.2 [facility] Comment on above: Performed By: #### C MP ####[facility] Bhszdiohqo994[address] [place], [place] [address]Dr. Chrissy Frazier Sodium [Moles/Vol] 136 mmol/L Normal 136-145 [facility] Comment on above: Performed By: #### C MP ####[facility] Wdhtmfhxjj2833[address] [place], [place] [address]Dr. Chrissy Frazier Urea nitrogen [Mass/Vol] 13.0 mg/dL Normal 7.0-18.0 [facility] Comment on above: Performed By: #### C MP ####[facility] Fankpencya229[address] [place], [place] [address]Dr. Chrissy Frazier Urea nitrogen/Creatinine [Mass ratio] 11.3 mg/mg Normal [facility] Comment on above: Performed By: #### C MP ####[facility] Voofefsodg55[address] [place], [place] [address]Dr. Chrissy Frazier AMMONIAon 03-30-2022 Ammonia (P) [Mass/Vol] ug/dL Critically low 11-32 [facility] Comment on above: Performed By: #### A MM ####[facility] Smrxnzhuba925[address] [place], [place] [address]Dr. Chrissy Frazier CBC AUTO DIFFon 03-30-2022 BASO # 0.1 103/ul Normal 0.0-0.1 [facility] Comment on above: Performed By: #### C BC ####[facility] Zjkgrxhjse8915[address] [place], [place] [address]Dr. Chrissy Frazier Basophils/100 WBC (Bld) 0.5 % Normal 0.2-2.0 [facility] Comment on above: Performed By: #### C BC ####[facility] Ysswnmvdye176[address] [place], [place] [address]Dr. Chrissy Frazier EO # 0.1 103/ul Normal 0.0-0.7 [facility] Comment on above: Performed By: #### C BC ####[facility] Ypsbvbnvhk2027[address] [place], [place] [address]Dr. Chrissy Frazier Eosinophils/100 WBC (Bld) 1.1 % Normal 0.9-7.0 [facility] Comment on above: Performed By: #### C BC ####[facility] Fcyecczlyd4[address] [place], [place] [address]Dr. Chrissy Frazier Erythrocyte distribution width (RBC) [Ratio] 13.4 % Normal 11.0-15.0 [facility] Comment on above: Performed By: #### C BC ####[facility] Oujpawrhby7[address] [place], [place] [address]Dr. Chrissy Frazier Hematocrit (Bld) [Volume fraction] 45.8 % Normal 42.0-54.0 [facility] Comment on above: Performed By: #### C BC ####[facility] Fmwgicxmuw24[address] [place], [place] [address]Dr. Chrissy Frazier Hemoglobin (Bld) [Mass/Vol] 14.9 g/dL Normal 14.0-18.0 [facility] Comment on above: Performed By: #### C BC ####[facility] Lvuhxpotoh[address] [place], [place] [address]Dr. Chrissy Frazier IG # 0.05 10e3/ul Critically high 0.00-0.03 [facility] Comment on above: Performed By: #### C BC ####[facility] Zdfjhegwgo55[address] [place], [place] [address]Dr. Chrissy Frazier IG % 0.5 % Normal 0.0-0.5 [facility] Comment on above: Performed By: #### C BC ####[facility] Zkjsqaclho29[address] [place], [place] [address]DrNancy Frazier LYMPH # 3.0 103/ul Normal 1.2-3.8 [facility] Comment on above: Performed By: #### C BC ####[facility] Vhxmaqpfug30[address] [place] [id number] Frazier Lymphocytes/100 WBC (Bld) 30.2 % Normal 20.5-60.0 [facility] Comment on above: Performed By: #### C BC ####[facility] Nfymvdubsb96[address] [place], [place] [address]DrNancy Frazier MANUAL DIFF REQ NO Normal [facility] Comment on above: Performed By: #### C BC ####[facility] Naobplmatr7605 [place] [address]DrNancy Frazier MCH (RBC) [Entitic mass] 28.4 pg Normal 25.9-34.0 [facility] Comment on above: Performed By: #### C BC ####[facility] Sgyssbqkqn4038[address] [place], [place] [address]DrNancy Frazier MCHC (RBC) [Mass/Vol] 32.5 g/dL Normal 29.9-35.2 [facility] Comment on above: Performed By: #### C BC ####[facility] Cnspaxesrd4218[address] [place], [place] [address]DrNancy Frazier MCV (RBC) [Entitic vol] 87.4 fL Normal 80.0-94.0 [facility] Comment on above: Performed By: #### C BC ####[facility] Bckwsezbwd359[address] [place], [place] [address]DrNancy Frazier MONO # 0.8 103/ul Normal 0.3-0.8 [facility] Comment on above: Performed By: #### C BC ####[facility] Pxsfogzoyw4816[address] [place], [place] [address]DrNancy Frazier Monocytes/100 WBC (Bld) 7.9 % Normal 1.7-12.0 [facility] Comment on above: Performed By: #### C BC ####[facility] Ltklqmmoyd[address] [place], [place] [address]DrNancy Frazier NEUT # 5.9 103/ul Normal 1.4-6.5 [facility] Comment on above: Performed By: #### C BC ####[facility] Ynwyvjgkek8689 [place] [address]Dr. Chrissy Frazier Neutrophils/100 WBC (Bld) 59.8 % Normal 43.0-75.0 [facility] Comment on above: Performed By: #### C BC ####[facility] Zbwlystktz2615[address] [place], [place] [address]Dr. Chrissy Frazier Platelet mean volume (Bld) [Entitic vol] 10.1 fL Normal 9.5-13.5 [facility] Comment on above: Performed By: #### C BC ####[facility] Cwtmorjwbo3895[address] [place], [place] [address]Dr. Chrissy Frazier PLT 320 103/ul Normal 150-450 [facility] Comment on above: Performed By: #### C BC ####[facility] Qczjomilwm623[address] [place], [place] [address]Dr. Chrissy Frazier RBC 5.24 106/ul Normal 4.70-6.10 [facility] Comment on above: Performed By: #### C BC ####[facility] Rzmygnodkq8089[address] [place], [place] [address]Dr. Chrissy Frazier WBC 9.9 103/ul Normal 4.0-11.0 [facility] Comment on above: Performed By: #### C BC ####[facility] Ftgdcoumac[address] [place], [place] [address]Dr. Chrissy Frazier PROF 14(COMP METB)on 022 Albumin [Mass/Vol] 3.9 g/dL Normal 3.4-5.0 [facility] Comment on above: Performed By: #### C MP ####[facility] Yfeiynhlde6535[address] [place], [place] [address]DrNancy Frazier Albumin/Globulin [Mass ratio] 1.1 {ratio} Normal [facility] Comment on above: Performed By: #### C MP ####[facility] Kpnjkseaqt635[address] [place], [place] [address]Dr. Chrissy Frazier ALP [Catalytic activity/Vol] 88 U/L Normal 46-116 [facility] Comment on above: Performed By: #### C MP ####[facility] Alrrsnyxmo217[address] [place] [address]Dr. Chrissy Frazier ALT [Catalytic activity/Vol] 161 U/L Critically high 16-63 [facility] Comment on above: Performed By: #### C MP ####[facility] Tsbtoejdhh1676 [place] [address]Dr. Chrissy Frazier Anion gap [Moles/Vol] 12.3 mmol/L Normal [facility] Comment on above: Performed By: #### C MP ####[facility] Lapahwhjca077[address] [place], [place] [address]Dr. Chrissy Frazier AST [Catalytic activity/Vol] 64 U/L Critically high 15-37 [facility] Comment on above: Performed By: #### C MP ####[facility] Yvhbhmirov4065[address] [place], [place] [address]Dr. Chrissy Frazier Bilirubin [Mass/Vol] 0.8 mg/dL Normal 0.2-1.0 [facility] Comment on above: Performed By: #### C MP ####[facility] Vkvfymllic754[address] [place], [place] [address]Dr. Chrissy Frazier Calcium [Mass/Vol] 8.4 mg/dL Critically low 8.5-10.1 [facility] Comment on above: Performed By: #### C MP ####[facility] Rvpjcyajvy[address] [place], [place] [address]Dr. Chrissy Frazier Chloride [Moles/Vol] 103 mmol/L Normal 98-107 [facility] Comment on above: Performed By: #### C MP ####[facility] Tchhkugcvi007[address] [place], [place] [address]Dr. Chrissy Frazier CO2 [Moles/Vol] 26.5 mmol/L Normal 21.0-32.0 [facility] Comment on above: Performed By: #### C MP ####[facility] Svgugnlkeq474[address] [place], [place] [address]Dr. Chrissy Freddie Creatinine [Mass/Vol] 1.24 mg/dL Normal 0.70-1.30 [facility] Comment on above: Performed By: #### C MP ####[facility] Ewlrpkawdu3664 [place] [address]Dr. Chrissy Frazier EGFR-AF LATVIAN >60 Normal >=60 [facility] Comment on above: Performed By: #### C MP ####[facility] Nnkridfwiq1821 [place] [id number]. Chrissy Freddie EGFR-NON AF LATVIAN >60 Normal >=60 [facility] Comment on above: Performed By: #### C MP ####[facility] Uihjxopxxf8650 [place] [id number]. Chrissy Freddie Globulin (S) [Mass/Vol] 3.7 g/dL Normal [facility] Comment on above: Performed By: #### C MP ####[facility] Ofshingwkr6983 [place] [address]Dr. Tishrowan Freddie Glucose [Mass/Vol] 108 mg/dL Critically high 74-106 [facility] Comment on above: Performed By: #### C MP ####[facility] Hoortznrql9[address] [place] [address]Dr. Chrissy Freddie Potassium [Moles/Vol] 3.8 mmol/L Normal 3.5-5.1 [facility] Comment on above: Performed By: #### C MP ####[facility] Dhqjslravt8898 [place] [address]Dr. Chrissy Freddie Protein [Mass/Vol] 7.6 g/dL Normal 6.4-8.2 [facility] Comment on above: Performed By: #### C MP ####[facility] Eovqpmqizn6939 [place] [address]Dr. Tishrowan Frazier Sodium [Moles/Vol] 138 mmol/L Normal 136-145 [facility] Comment on above: Performed By: #### C MP ####[facility] Azcmycwrof8034 [place] [address]Dr. Chrissy Frazier Urea nitrogen [Mass/Vol] 12.0 mg/dL Normal 7.0-18.0 [facility] Comment on above: Performed By: #### C MP ####[facility] Ygichkdblw056[address] [place], [place] [address]Dr. Chrissy Frazier Urea nitrogen/Creatinine [Mass ratio] 9.7 mg/mg Normal [facility] Comment on above: Performed By: #### C MP ####[facility] Wqvcockmik3996 [place] [address]Dr. Chrissy Frazier AMMONIAon 03-29-2022 Ammonia (P) [Moles/Vol] 27 umol/L Normal 11-32 [facility] Comment on above: Performed By: #### A MM ####[facility] Ljttquzynx68[address] [place], [place] [address]Dr. Chrissy Frazier AMYLASEon 03-29-2022 Amylase [Catalytic activity/Vol] 29 U/L Normal 25-115 [facility] Comment on above: Performed By: #### L IPA, TERRENCE ####[facility] Uuqeqytaqo[address] [place], [place] [address]Dr. Chrissy Frazier CBC AUTO DIFFon 03-29-2022 BASO # 0.0 103/ul Normal 0.0-0.1 [facility] Comment on above: Performed By: #### C BC ####[facility] Uwnumfgaqx5601[address] [place], [place] [address]Dr. Chrissy Freddie Basophils/100 WBC (Bld) 0.2 % Normal 0.2-2.0 [facility] Comment on above: Performed By: #### C BC ####[facility] Przffvndeo794[address] [place], [place] [address]Dr. Chrissy Frazier EO # 0.0 103/ul Normal 0.0-0.7 [facility] Comment on above: Performed By: #### C BC ####[facility] Mpazhlnvhs2467[address] [place], [place] [address]Dr. Chrissy Freddie Eosinophils/100 WBC (Bld) 0.4 % Critically low 0.9-7.0 [facility] Comment on above: Performed By: #### C BC ####[facility] Omqoblbzzp717[address] [place], [place] [address]Dr. Chrissy Frazier Erythrocyte distribution width (RBC) [Ratio] 13.6 % Normal 11.0-15.0 [facility] Comment on above: Performed By: #### C BC ####[facility] Jxwpvozlha1769 [place] [address]Dr. Chrissy Frazier Hematocrit (Bld) [Volume fraction] 45.2 % Normal 42.0-54.0 [facility] Comment on above: Performed By: #### C BC ####[facility] Veredqudsj965[address] [place], [place] [address]Dr. Chrissy Frazier Hemoglobin (Bld) [Mass/Vol] 14.8 g/dL Normal 14.0-18.0 [facility] Comment on above: Performed By: #### C BC ####[facility] Suqccbtezm39[address] [place], [place] [address]Dr. Chrissy Frazier IG # 0.03 10e3/ul Normal 0.00-0.03 [facility] Comment on above: Performed By: #### C BC ####[facility] Gcrtrximfb144[address] [place], [place] [address]Dr. Tishrowan Frazier IG % 0.3 % Normal 0.0-0.5 [facility] Comment on above: Performed By: #### C BC ####[facility] Znrtrmvrih411[address] [place], [place] [address]Dr. Chrissy Frazier LYMPH # 2.0 103/ul Normal 1.2-3.8 [facility] Comment on above: Performed By: #### C BC ####[facility] Jwhrtftgkw2210[address] [place], [place] [address]Dr. Chrissy Frazier Lymphocytes/100 WBC (Bld) 18.3 % Critically low 20.5-60.0 [facility] Comment on above: Performed By: #### C BC ####[facility] Hksanxgeow30[address] [place], [place] [address]Dr. Chrissy Frazier MANUAL DIFF REQ NO Normal [facility] Comment on above: Performed By: #### C BC ####[facility] Sxrdkgkwuk608[address] [place], [place] [address]Dr. Chrissy Frazier MCH (RBC) [Entitic mass] 28.5 pg Normal 25.9-34.0 [facility] Comment on above: Performed By: #### C BC ####[facility] Ihhpupecem[address] [place] [address]DrNancy Frazier MCHC (RBC) [Mass/Vol] 32.7 g/dL Normal 29.9-35.2 [facility] Comment on above: Performed By: #### C BC ####[facility] Qwbparzigp3364 [place] [address]DrNancy Frazier MCV (RBC) [Entitic vol] 87.1 fL Normal 80.0-94.0 [facility] Comment on above: Performed By: #### C BC ####[facility] Rgaqgztolt509[address] [place], [place] [address]DrNancy Frazier MONO # 0.9 103/ul Critically high 0.3-0.[address] [facility] Comment on above: Performed By: #### C BC ####[facility] Fkbwsxuooy408[address] [place], [place] [address]DrNancy Frazier Monocytes/100 WBC (Bld) 8.6 % Normal 1.7-12.0 [facility] Comment on above: Performed By: #### C BC ####[facility] Vobylfycll80[address] [place], [place] [address]DrNancy Frazier NEUT # 7.8 103/ul Critically high 1.4-6.[address] [facility] Comment on above: Performed By: #### C BC ####[facility] Gpjkumtqux104[address] [place], [place] [address]DrNancy Frazier Neutrophils/100 WBC (Bld) 72.2 % Normal 43.0-75.0 [facility] Comment on above: Performed By: #### C BC ####[facility] Mgzflaybws0659[address] [place], [place] [address]DrNancy Frazier Platelet mean volume (Bld) [Entitic vol] 10.1 fL Normal 9.5-13.5 [facility] Comment on above: Performed By: #### C BC ####[facility] Tweljsfexg[address] [place], [place] [address]Dr. Chrissy Frazier PLT 329 103/ul Normal 150-450 [facility] Comment on above: Performed By: #### C BC ####[facility] Klmioagxzd6337 [place] [address]Dr. Chrissy Frazier RBC 5.19 106/ul Normal 4.70-6.10 [facility] Comment on above: Performed By: #### C BC ####[facility] Idwrqbtxdg9774 [place] [address]Dr. Chrissy Frazier WBC 10.8 103/ul Normal 4.0-11.0 [facility] Comment on above: Performed By: #### C BC ####[facility] Ijvdwrgvfe9544 [place] [address]Dr. Chrissy Freddie LIPASEon 03-29-2022 Lipase [Catalytic activity/Vol] 58.0 U/L Critically low 73.0-393.0 [facility] Comment on above: Performed By: #### L TERRENCE VICTORIA ####[facility] Bbtphhglnx30[address] [place], [place] [address]Dr. Chrissy Freddie NM HEPATOBILIARY SCAN W EFon 03-29-2022 NM HEPATOBILIARY SCAN W EF Normal [facility] PROF 14(COMP METB)on 022 Albumin [Mass/Vol] 3.8 g/dL Normal 3.4-5.0 [facility] Comment on above: Performed By: #### C MP ####[facility] Xnooeyrkta1931 [place] [address]DrNancy Winstonrowan Freddie Albumin/Globulin [Mass ratio] 1.0 {ratio} Normal [facility] Comment on above: Performed By: #### C MP ####[facility] Sebgptqpug3361 [place] [address]Dr. Chrissy Frazier ALP [Catalytic activity/Vol] 69 U/L Normal 46-116 [facility] Comment on above: Performed By: #### C MP ####[facility] Oubhgbecrv0825 [place] [address]Dr. Chrissy Frazier ALT [Catalytic activity/Vol] 117 U/L Critically high 16-63 [facility] Comment on above: Performed By: #### C MP ####[facility] Deejqemztj8330 [place] [address]Dr. Chrissy Frazier Anion gap [Moles/Vol] 16.7 mmol/L Normal [facility] Comment on above: Performed By: #### C MP ####[facility] Bldzcvnkjj083[address] [place], [place] [address]Dr. Chrissy Frazier AST [Catalytic activity/Vol] 77 U/L Critically high 15-37 [facility] Comment on above: Performed By: #### C MP ####[facility] Rpbrugaxtw804[address] [place], [place] [address]Dr. Chrissy Frazier Bilirubin [Mass/Vol] 1.5 mg/dL Critically high 0.2-1.0 [facility] Comment on above: Performed By: #### C MP ####[facility] Wqcttrgygx618[address] [place], [place] [address]Dr. Chrissy Frazier Calcium [Mass/Vol] 8.1 mg/dL Critically low 8.5-10.1 [facility] Comment on above: Performed By: #### C MP ####[facility] Wslxdvurrx[address] [place], [place] [address]Dr. Chrissy Freddie Chloride [Moles/Vol] 101 mmol/L Normal 98-107 [facility] Comment on above: Performed By: #### C MP ####[facility] Cocjqyuezt18[address] [place], [place] [address]Dr. Chrissy Frazier CO2 [Moles/Vol] 24.5 mmol/L Normal 21.0-32.0 [facility] Comment on above: Performed By: #### C MP ####[facility] Xbqeyxzbkw450[address] [place], [place] [address]Dr. Chrissy Frazier Creatinine [Mass/Vol] 1.17 mg/dL Normal 0.70-1.30 [facility] Comment on above: Performed By: #### C MP ####[facility] Qwxbtefeey286[address] [place], [place] [address]Dr. Chrissy Freddie EGFR-AF LATVIAN >60 Normal >=60 [facility] Comment on above: Performed By: #### C MP ####[facility] Wibdjrerzq2878 [place] [id number]. Chrissy Frazier EGFR-NON AF LATVIAN >60 Normal >=60 [facility] Comment on above: Performed By: #### C MP ####[facility] Cecnzluspn1266 [place] [id number]. Chrissy Frazier Globulin (S) [Mass/Vol] 3.9 g/dL Normal [facility] Comment on above: Performed By: #### C MP ####[facility] Xzypjlzegz1423 [place] [address]Dr. Chrissy Frazier Glucose [Mass/Vol] 104 mg/dL Normal 74-106 [facility] Comment on above: Performed By: #### C MP ####[facility] Gdpsftetyw3091 [place] [address]Dr. Chrissy Frazier Potassium [Moles/Vol] 3.2 mmol/L Critically low 3.5-5.1 [facility] Comment on above: Performed By: #### C MP ####[facility] Usrqonpbli38[address] [place], [place] [address]Dr. Chrissy Frazier Protein [Mass/Vol] 7.7 g/dL Normal 6.4-8.2 [facility] Comment on above: Performed By: #### C MP ####[facility] Wknbgpkvpk[address] [place], [place] [address]Dr. Chrissy Frazier Sodium [Moles/Vol] 139 mmol/L Normal 136-145 [facility] Comment on above: Performed By: #### C MP ####[facility] Wwjunfzcjc5330 [place] [address]Dr. Chrissy Frazier Urea nitrogen [Mass/Vol] 11.0 mg/dL Normal 7.0-18.0 [facility] Comment on above: Performed By: #### C MP ####[facility] Yotwlbnwww[address] [place] [address]Dr. Chrissy Frazier Urea nitrogen/Creatinine [Mass ratio] 9.4 mg/mg Normal [facility] Comment on above: Performed By: #### C MP ####[facility] Ifkeazrdob8480 [place] [address]DrNancy Frazier US SINGLE QUAD RT UPPERon US SINGLE QUAD RT UPPER Normal [facility] AMMONIAon 03-28-2022 Ammonia (P) [Moles/Vol] 12 umol/L Normal 11-32 [facility] Comment on above: Performed By: #### A MM ####[facility] Dyfathftlz[address] [place], [place] [address]Dr. Chrissy Frazier CBC AUTO DIFFon 03-28-2022 BASO # 0.0 103/ul Normal 0.0-0.1 [facility] Comment on above: Performed By: #### C BC ####[facility] Fnrifmgqrw834[address] [place], [place] [address]DrNancy Frazier Basophils/100 WBC (Bld) 0.1 % Critically low 0.2-2.0 [facility] Comment on above: Performed By: #### C BC ####[facility] Wlypwheizv[address] [place], [place] [address]DrNancy Frazier EO # 0.0 103/ul Normal 0.0-0.7 [facility] Comment on above: Performed By: #### C BC ####[facility] Zsuyefdvbp715[address] [place], [place] [address]DrNancy Frazier Eosinophils/100 WBC (Bld) 0.0 % Critically low 0.9-7.0 [facility] Comment on above: Performed By: #### C BC ####[facility] Fywxlimkwo8735[address] [place], [place] [address]DrNancy Frazier Erythrocyte distribution width (RBC) [Ratio] 14.0 % Normal 11.0-15.0 [facility] Comment on above: Performed By: #### C BC ####[facility] Wlbofmvwwu039[address] [place], [place] [address]DrNancy Frazier Hematocrit (Bld) [Volume fraction] 44.2 % Normal 42.0-54.0 [facility] Comment on above: Performed By: #### C BC ####[facility] Duavehnnge470[address] [place], [place] [address]DrNancy Frazier Hemoglobin (Bld) [Mass/Vol] 14.7 g/dL Normal 14.0-18.0 [facility] Comment on above: Performed By: #### C BC ####[facility] Nxkfwsrzgy5129 [place] [address]DrNnacy Frazier IG # 0.10 10e3/ul Critically high 0.00-0.03 [facility] Comment on above: Performed By: #### C BC ####[facility] Lgcgjphzdf7433 [place] [address]DrNancy Frazier IG % 0.5 % Normal 0.0-0.5 [facility] Comment on above: Performed By: #### C BC ####[facility] Myknqpelbd9[address] [place], [place] [address]DrNancy Frazier LYMPH # 2.6 103/ul Normal 1.2-3.8 [facility] Comment on above: Performed By: #### C BC ####[facility] Ugqeqkxsfm18[address] [place], [place] [address]DrNancy Frazier Lymphocytes/100 WBC (Bld) 13.8 % Critically low 20.5-60.0 [facility] Comment on above: Performed By: #### C BC ####[facility] Dolqoilaqo[address] [place], [place] [address]DrNancy Frazier MANUAL DIFF REQ NO Normal [facility] Comment on above: Performed By: #### C BC ####[facility] Sxzyihgchb57[address] [place], [place] [address]DrNancy Frazier MCH (RBC) [Entitic mass] 29.0 pg Normal 25.9-34.0 [facility] Comment on above: Performed By: #### C BC ####[facility] Difcyucinu8216[address] [place], [place] [address]DrNancy Frazier MCHC (RBC) [Mass/Vol] 33.3 g/dL Normal 29.9-35.2 [facility] Comment on above: Performed By: #### C BC ####[facility] Beypjurxav9189[address] [place], [place] [address]Dr. Chrissy Frazier MCV (RBC) [Entitic vol] 87.2 fL Normal 80.0-94.0 [facility] Comment on above: Performed By: #### C BC ####[facility] Spaqcrgbyd8946 [place] [id number]. Winstonrowan Frazier MONO # 1.1 103/ul Critically high 0.3-0.[address] [facility] Comment on above: Performed By: #### C BC ####[facility] [facility] Gu[address]vrrcd[address] [place] [address]DrNancy Frazier Monocytes/100 WBC (Bld) 5.9 % Normal 1.7-12.0 [facility] Comment on above: Performed By: #### C BC ####[facility] Wuvgruzuud[address] [place], [place] [address]DrNancy Winstonrowan Frazier NEUT # 15.1 103/ul Critically high 1.4-6.5 The [facility] Comment on above: Performed By: #### C BC ####[facility] Dbbolbylyf74[address] [place], [place] [address]DrNancy Frazier Neutrophils/100 WBC (Bld) 79.7 % Critically high 43.0-75.0 [facility] Comment on above: Performed By: #### C BC ####[facility] Gnsllsflts[address] [place], [place] [address]DrNancy Frazier Platelet mean volume (Bld) [Entitic vol] 10.3 fL Normal 9.5-13.5 [facility] Comment on above: Performed By: #### C BC ####[facility] Wxvpuzqyjn333[address] [place], [place] [address]DrNancy Frazier PLT 358 103/ul Normal 150-450 [facility] Comment on above: Performed By: #### C BC ####[facility] T[address]pvlq[address] [place], [place] [id number] Frazier RBC 5.07 106/ul Normal 4.70-6.10 [facility] Comment on above: Performed By: #### C BC ####[facility] Zmtqwechvn[address] [place], [place] [address]DrNancy Frazier WBC 18.9 103/ul Critically high 4.0-11.0 The [facility] Comment on above: Performed By: #### C BC ####[facility] Jyoejswxir99[address] [place], [place] [address]Dr. Chrissy Frazier PROF 14(COMP METB)on 022 Albumin [Mass/Vol] 3.9 g/dL Normal 3.4-5.0 The [facility] Comment on above: Performed By: #### C MP ####[facility] Xfdygqwmtd32[address] [place], [place] [address]Dr. Chrissy Frazier Albumin/Globulin [Mass ratio] 1.1 {ratio} Normal [facility] Comment on above: Performed By: #### C MP ####[facility] Fteurfxygu727[address] [place], [place] [address]Dr. Chrissy Frazier ALP [Catalytic activity/Vol] 65 U/L Normal 46-116 [facility] Comment on above: Performed By: #### C MP ####[facility] Ocsnfqffrq6735[address] [place], [place] [address]Dr. Chrissy Frazier ALT [Catalytic activity/Vol] 46 U/L Normal 16-63 [facility] Comment on above: Performed By: #### C MP ####[facility] Iutwhveisu659[address] [place], [place] [address]Dr. Chrissy Frazier Anion gap [Moles/Vol] 13.2 mmol/L Normal [facility] Comment on above: Performed By: #### C MP ####[facility] Xpziazxcil54[address] [place], [place] [address]Dr. Chrissy Frazier AST [Catalytic activity/Vol] 33 U/L Normal 15-37 [facility] Comment on above: Performed By: #### C MP ####[facility] Klzvnddfyc188[address] [place], [place] [address]Dr. Chrissy Frazier Bilirubin [Mass/Vol] 0.8 mg/dL Normal 0.2-1.0 [facility] Comment on above: Performed By: #### C MP ####[facility] Zmyxzazhvx625[address] [place], [place] [address]Dr. Chrissy Frazier Calcium [Mass/Vol] 8.1 mg/dL Critically low 8.5-10.1 [facility] Comment on above: Performed By: #### C MP ####[facility] [address]qla[address] [place] [address]Dr. Chrissy Frazier Chloride [Moles/Vol] 102 mmol/L Normal 98-107 [facility] Comment on above: Performed By: #### C MP ####[facility] Hnevwoujpu06[address] [place] [address]Dr. Chrissy Frazier CO2 [Moles/Vol] 24.0 mmol/L Normal 21.0-32.0 The [facility] Comment on above: Performed By: #### C MP ####[facility] Rrrfrcykln350[address] [place], [place] [address]Dr. Chrissy Freddie Creatinine [Mass/Vol] 1.26 mg/dL Normal 0.70-1.30 [facility] Comment on above: Performed By: #### C MP ####[facility] Uhwazywori649[address] [place], [place] [address]Dr. Chrissy Freddie EGFR-AF LATVIAN >60 Normal >=60 [facility] Comment on above: Performed By: #### C MP ####[facility] Zpqykqlahb06[address] [place], [place] [address]Dr. Tishrowan Freddie EGFR-NON AF LATVIAN >60 Normal >=60 [facility] Comment on above: Performed By: #### C MP ####[facility] Afpkdkfpzs65[address] [place] [address]Dr. Chrissy Frazier Globulin (S) [Mass/Vol] 3.7 g/dL Normal [facility] Comment on above: Performed By: #### C MP ####[facility] Bdrnutbtuk[address] [place] [address]Dr. Chrissy Frazier Glucose [Mass/Vol] 119 mg/dL Critically high 74-106 [facility] Comment on above: Performed By: #### C MP ####[facility] Lbzrewqbpp8908 [place] [address]Dr. Chrissy Frazier Potassium [Moles/Vol] 3.2 mmol/L Critically low 3.5-5.1 [facility] Comment on above: Performed By: #### C MP ####[facility] Oerffyvqpp8[address] [place] [address]Dr. Chrissy Frazier Protein [Mass/Vol] 7.6 g/dL Normal 6.4-8.2 [facility] Comment on above: Performed By: #### C MP ####[facility] Uiprfybuxb59[address] [place] [address]Dr. Chrissy Frazier Sodium [Moles/Vol] 136 mmol/L Normal 136-145 [facility] Comment on above: Performed By: #### C MP ####[facility] Xfkczfqpcn5305 [place] [address]Dr. Chrissy Frazier Urea nitrogen [Mass/Vol] 14.0 mg/dL Normal 7.0-18.0 [facility] Comment on above: Performed By: #### C MP ####[facility] Pyzgldmvhr88[address] [place] [address]Dr. Chrissy Frazier Urea nitrogen/Creatinine [Mass ratio] 11.1 mg/mg Normal [facility] Comment on above: Performed By: #### C MP ####[facility] Otymrvdcpj5[address] [place] [address]Dr. Chrissy Frazier CBC W MANUAL DIFFon 03-27-20 22 ATYPICAL LYMPH # Normal [facility] Comment on above: Performed By: #### C BCMAN ####[facility] D[address]gofpwwb[address] [place] [address]Dr. Chrissy Freddie ATYPICAL LYMPH % Normal [facility] Comment on above: Performed By: #### C BCMAN ####[facility] Havq[address]difi[address] [place] [address]Dr. Chrissy Frazier BAND # 0.0 103/ul Normal 0.0-0.3 [facility] Comment on above: Performed By: #### C BCMAN ####[facility] Qaowjmvzov78[address] [place] [address]Dr. Chrissy Frazier BAND % 0 % Normal 0-5 [facility] Comment on above: Performed By: #### C BCMAN ####[facility] Oicgtwffuf93[address] [place] [address]Dr. Chrissy Frazier BASOM # 0.00 103/ul Normal 0.00-0.10 [facility] Comment on above: Performed By: #### C BCMAN ####[facility] Kgivrruaug23[address] [place] [address]Dr. Chrissy Frazier BASOM % 0.0 % Critically low 0.2-2.0 [facility] Comment on above: Performed By: #### C BCMAN ####[facility] Lthkgotfje44[address] [place] [address]Dr. Chrissy Frazier BLAST # Normal [facility] Comment on above: Performed By: #### C BCLEANDRO ####[facility] Ezzcaprfuu85[address] [place], [place] [address]Dr. Chrissy Frazier BLAST % Normal [facility] Comment on above: Performed By: #### C BCLEANDRO ####[facility] Zqlguiuosm[address] [place], [place] [address]Dr. Chrissy Frazier CORRECTED WBC Normal 4.0-11.0 The [facility] Comment on above: Performed By: #### C BCLEANDRO ####[facility] Qvzfarocvv7[address] [place], [place] [address]Dr. Chrissy Frazier EOS # 0.00 103/ul Normal 0.00-0.70 [facility] Comment on above: Performed By: #### C BCLEANDRO ####[facility] Lbdhzxoxfv[address] [place], [place] [address]Dr. Chrissy Frazier EOS% 0.0 % Critically low 0.9-7.0 The [facility] Comment on above: Performed By: #### C BCLEANDRO ####[facility] Zztmtsqkan8[address] [place], [place] [address]Dr. Chrissy Frazier HCT 47.3 % Normal 42.0-54.0 [facility] Comment on above: Performed By: #### C BCMAN ####[facility] Ijqyyjywmu394[address] [place], [place] [address]Dr. Chrissy Frazier HGB 16.4 g/dl Normal 14.0-18.0 [facility] Comment on above: Performed By: #### C BCMAN ####[facility] T[address]jqgha[address] [place], [place] [address]Wi. Chrissy Frazier LYMPHM # 2.31 103/ul Normal 1.20-3.80 [facility] Comment on above: Performed By: #### C ANTONETTE ####[facility] [address]ukh[address] [place], [place] [address]Mk. Chrissy Frazier LYMPHM% 9.0 % Critically low 20.5-60.0 The [facility] Comment on above: Performed By: #### C ANTONETTE ####[facility] Gmomhcaopk[address] [place] [address]Dr. Chrissy Frazier MCH 28.6 pg Normal 25.9-34.0 [facility] Comment on above: Performed By: #### C ANTONETTE ####[facility] E[address]fpdgfjy06[address] [place] [address]Dr. Chrissy Frazier MCHC 34.7 g/dl Normal 29.9-35.2 [facility] Comment on above: Performed By: #### C ANTONETTE ####[facility] Bftjjcegdo20[address] [place] [address]Dr. Chrissy Frazier MCV 82.4 fL Normal 80.0-94.0 [facility] Comment on above: Performed By: #### C ANTONETTE ####[facility] Dufzblfeii4092 [place] [address]Dr. Chrissy Frazier METAMYELOCYTE # Normal [facility] Comment on above: Performed By: #### C ANTONETTE ####[facility] Xbxplimbbp06[address] [place] [address]Dr. Chrissy Frazier METAMYELOCYTE % Normal [facility] Comment on above: Performed By: #### C ANTONETTE ####[facility] Hhrsexhuuv26[address] [place] [address]Dr. Chrissy Frazier MONOM# 3.85 103/ul Critically high 0.30-0.80 [facility] Comment on above: Performed By: #### C ANTONETTE ####[facility] Htudhzsxrd13[address] [place] [address]Dr. Chrissy Frazier MONOM% 15.0 % Critically high 1.7-12.[address] [facility] Comment on above: Performed By: #### C ANTONETTE ####[facility] Vxeuzdxapq7366 [place] [address]Dr. Chrissy Frazier MPV 10.6 fL Normal 9.5-13.5 [facility] Comment on above: Performed By: #### C ANTONETTE ####[facility] Nxcoaqkwnh2458 [place] [address]Dr. Chrissy Frazier MYELOCYTE # Normal [facility] Comment on above: Performed By: #### C ANTONETTE ####[facility] Sjqjrmqhtq4304 [place] [address]Dr. Chrissy Frazier MYELOCYTE % Normal [facility] Comment on above: Performed By: #### C ANTONETTE ####[facility] Sldvslptjz8286 [place] [address]Dr. Chrissy Frazier NRBC Normal [facility] Comment on above: Performed By: #### C ANTONETTE ####[facility] Uvhvqonyni2571 [place] [address]Dr. Chrissy Frazier PLT 471 103/ul Critically high 150-[address] [facility] Comment on above: Performed By: #### C ANTONETTE ####[facility] Cphsmgtdmm4942 [place] [address]Dr. Chrissy Frazier RBC 5.74 106/ul Normal 4.70-6.10 [facility] Comment on above: Performed By: #### C ANTONETTE ####[facility] Wikpvuhdse5177 [place] [address]Dr. Chrissy Frazier RDW 13.7 % Normal 11.0-15.0 [facility] Comment on above: Performed By: #### C ANTONETTE ####[facility] Vtpyhjavdw4427 [place] [address]Dr. Chrissy Frazier SEG # 19.53 103/ul Critically high 1.40-6.50 [facility] Comment on above: Performed By: #### C ANTONETTE ####[facility] Ucftchtwmv2001 [place] [address]Dr. Chrissy Frazier SEG % 76.0 % Critically high 43.0-75.[address] [facility] Comment on above: Performed By: #### C BCMAN ####[facility] Dkeafejmzt1329 [place] [address]Dr. Chrissy Frazier TOXIC GRANULATION SLIGHT Normal [facility] Comment on above: Result Comment: few vacoules Performed By: #### C BCMAN ####[facility] Aldzlbahwj75[address] [place] [address]Dr. Chrissy Frazier WBC 25.7 103/ul Critically high 4.0-11.0 [facility] Comment on above: Performed By: #### C ANTONETTE ####[facility] Xaknmyamvt56[address] [place], [place] [address]Dr. Chrissy Freddie LACTATE/LACTIC ACIDon 2021 Lactate [Moles/Vol] 2.4 mmol/L Critically high 0.4-1.9 [facility] Comment on above: Performed By: #### L ACT ####[facility] Badkwimuhi049[address] [place], [place] [address]Dr. Chrissy Frazier Lactate [Moles/Vol] 3.5 mmol/L Critically high 0.4-1.9 [facility] Comment on above: Performed By: #### L ACT ####[facility] Xlwypgjikz9[address] [place], [place] [address]Dr. Chrissy Frazier LIPASEon 03-27-2022 Lipase [Catalytic activity/Vol] 43.0 U/L Critically low 73.0-393.0 [facility] Comment on above: Performed By: #### C MP, LIPA ####[facility] Ionlqgpmna1474 [place] [address]Dr. Chrissy Frazier PROF 14(COMP METB)on 022 Albumin [Mass/Vol] 4.7 g/dL Normal 3.4-5.0 [facility] Comment on above: Performed By: #### C MP, LIPA ####[facility] Fxzuappput36[address] [place], [place] [address]Dr. Tishorwan Frazier Albumin/Globulin [Mass ratio] 1.1 {ratio} Normal [facility] Comment on above: Performed By: #### C MP, LIPA ####[facility] Sitiltpijn6840 [place] [address]Dr. Chrissy Frazier ALP [Catalytic activity/Vol] 69 U/L Normal 46-116 [facility] Comment on above: Performed By: #### C MP, LIPA ####[facility] Emqrkdtsxw3867 [place] [address]Dr. Chrissy Frazier ALT [Catalytic activity/Vol] 47 U/L Normal 16-63 [facility] Comment on above: Performed By: #### C MP, LIPA ####[facility] Kifgsraxqq5948 [place] [address]Dr. Chrissy Frazier Anion gap [Moles/Vol] 23.2 mmol/L Normal [facility] Comment on above: Performed By: #### C MP, LIPA ####[facility] Uyqrfbkpms119[address] [place], [place] [address]Dr. Chrissy Frazier AST [Catalytic activity/Vol] 23 U/L Normal 15-37 [facility] Comment on above: Performed By: #### C MP, LIPA ####[facility] Ndlyszvjti46[address] [place], [place] [address]Dr. Chrissy Frazier Bilirubin [Mass/Vol] 0.7 mg/dL Normal 0.2-1.0 [facility] Comment on above: Performed By: #### C MP, LIPA ####[facility] Beliqddnjd9[address] [place], [place] [address]Dr. Chrissy Frazier Calcium [Mass/Vol] 9.2 mg/dL Normal 8.5-10.1 [facility] Comment on above: Performed By: #### C MP, LIPA ####[facility] Fowxoonfcl2304 [place] [address]Dr. Chrissy Freddie Chloride [Moles/Vol] 97 mmol/L Critically low 98-107 [facility] Comment on above: Performed By: #### C MP, LIPA ####[facility] Hizissmqhf[address] [place], [place] [address]Dr. Chrissy Freddie CO2 [Moles/Vol] 18.2 mmol/L Critically low 21.0-32.0 [facility] Comment on above: Performed By: #### C MP, LIPA ####[facility] Mcpckdkpit[address] [place], [place] [address]Dr. Chrissy Frazier Creatinine [Mass/Vol] 1.77 mg/dL Critically high 0.70-1.30 [facility] Comment on above: Performed By: #### C MP, LIPA ####[facility] Ilzdjjbyxp93[address] [place], [place] [address]Dr. Chrissy Frazier EGFR-AF LATVIAN 54 mL/min/1.73m2 Critically low >=60 [facility] Comment on above: Performed By: #### C MP, LIPA ####[facility] Qgplghuycn8[address] [place], [place] [address]Dr. Chrissy Freddie EGFR-NON AF LATVIAN 45 mL/min/1.73m2 Critically low >=60 [facility] Comment on above: Performed By: #### C MP, LIPA ####[facility] Mrgfwskihj[address] [place], [place] [address]Dr. Chrissy Freddie Globulin (S) [Mass/Vol] 4.4 g/dL Normal [facility] Comment on above: Performed By: #### C MP, LIPA ####[facility] Omgkpjovbe68[address] [place], [place] [address]Dr. Chrissy Frazier Glucose [Mass/Vol] 131 mg/dL Critically high 74-106 [facility] Comment on above: Performed By: #### C MP, LIPA ####[facility] Pjeswficrz7[address] [place], [place] [address]Dr. Chrissy Frazier Potassium [Moles/Vol] 3.4 mmol/L Critically low 3.5-5.1 [facility] Comment on above: Performed By: #### C MP, LIPA ####[facility] Xxscvutzvo450[address] [place], [place] [address]Dr. Chrissy Freddie Protein [Mass/Vol] 9.1 g/dL Critically high 6.4-8.2 [facility] Comment on above: Performed By: #### C MP, LIPA ####[facility] Gghbqovzzv8248 [place], [place] [address]Vq. Chrissy Frazier Sodium [Moles/Vol] 135 mmol/L Critically low 136-145 [facility] Comment on above: Performed By: #### C MANA, LIPA ####[facility] Iubssufruu[address] [place], [place] [address]Fj. Chrissy Frazier Urea nitrogen [Mass/Vol] 19.0 mg/dL Critically high 7.0-18.0 [facility] Comment on above: Performed By: #### C MANA, LIPA ####[facility] Kwvdjicklt0346 [place], [place] [address]Cp. Chrissy Frazier Urea nitrogen/Creatinine [Mass ratio] 10.7 mg/mg Normal [facility] Comment on above: Performed By: #### C MANA, OSWALD ####[facility] Xoqbyzluty5516 [place], [place] [address]Lz. Chrissy Frazier BMPon 11-03-2020 Anion gap [Moles/Vol] 14 mmol/L Normal 6-[address] [facility] Comment on above: Performed By: #### 2 [id number], [id number], [id number] #### [facility] [address] [place] [address] Calcium [Mass/Vol] 9.0 mg/dL Normal 8.9-11.[address] [facility] Comment on above: Performed By: #### 2 578975, [id number], [id number] #### [facility] [address] [place] [address] Chloride [Moles/Vol] 104 mmol/L Normal 101-[address] [facility] Comment on above: Performed By: #### 2 [id number], [id number], [id number] #### [facility] [address] [place] [address] CO2 [Moles/Vol] 21 mmol/L Normal 21-31 [facility] Comment on above: Performed By: #### 2 555852, 8061929, [id number] #### [facility] [address] [place] [address] Creatinine [Mass/Vol] 1.3 mg/dL Normal 0.5-1.[address] [facility] Comment on above: Performed By: #### 2 713518, [id number], [id number] #### [facility] [address] [place] [address] Glucose [Mass/Vol] 111 mg/dL Normal 55-[address] [facility] Comment on above: Result Comment: If t his glucose result represents a fasting glucose, interpretation should refer to the following reference range: 55-99 mg/dL Performed By: #### 2 318812, 0282802, [id number] #### [facility] [address] [place] [address] Potassium [Moles/Vol] 2.9 mmol/L Low 3.5-5.[address] [facility] Comment on above: Performed By: #### 2 173848, 7233067, [id number] #### [facility] [address] [place] [address] Sodium [Moles/Vol] 136 mmol/L Normal 135-[address] [facility] Comment on above: Performed By: #### 2 861070, 8200223, [id number] #### [facility] [address] [place] [address] Urea nitrogen [Mass/Vol] 14 mg/dL Normal 5-[address] [facility] Comment on above: Performed By: #### 2 146489, 7607605, [id number] #### [facility] [address] [place] [address] Urea nitrogen/Creatinine [Mass ratio] 11 No Units Normal 10-[address] [facility] Comment on above: Performed By: #### 2 368437, 0012698, [id number] #### [facility] [address] [place] [address] Lipase Levelon 11-03-2020 Lipase [Catalytic activity/Vol] 66 unit/L High 13-[address] [facility] Comment on above: Performed By: #### 2 647432, 8123456, [id number] #### [facility] [address] [place] [address] Physician Orderon 11-03-2020 Physician Order [id number] 3#1.00CD:[address] [facility] eGFRon 11-03-2020 GFR/1.73 sq M predicted among blacks MDRD (S/P/Bld) [Vol rate/Area] mL/min/{1.73_m2} Normal >=[address] [facility] Comment on above: Order Comment: Order added by Discern Expert. Result Comment: eGFR is race adjusted. AA=. Performed By: #### 2 619180, 3170563, [id number] #### [facility] [address] [place] [address] GFR/1.73 sq M predicted among non-blacks MDRD (S/P/Bld) [Vol rate/Area] mL/min/{1.73_m2} Normal >=[address] [facility] Comment on above: Order Comment: Order added by Discern Expert. Result Comment: Medical Collector lindsay kidney disease could be indicated at eGFR's of less than 60 mL/min/1.73m2. Kidney failure is indicated at less than 15 mL/min/1.73m2. Performed By: #### 2 870552, 2493417, [id number] #### [facility] [address] [place] [address] Encounters Encounter Date Encounter Type Care Provider Facility Start: 03-30-2023 ambulatory Luis Angel valenciaty:[facility] Start: 01-03-2023 End: 01-04-[address] MELODY MARIO . Facility:[facility] Start: 01-03-2023 End: 01-04-2023 ambulatory RAQUEL BANKS Facility:[facility] Start: 12-29-2022 End: 12-30-[address] MELODY MARIO . Facility:[facility] Start: 12-13-2022 End: 12-14-2022 ambulatory [facility] Start: 11-24-2022 End: 11-24-2022 ambulatory [facility] Start: 11-16-2022 End: 11-17-[address] [...] Date Payer Category Payer Self-pay 1990 Unknown [id number] 1990 Unknown [id number] 1990 Unknown [id number] .16.84 0.1.393406.3.579.2.593 1990 Unknown [id number] .16.84 0.1.579377.3.579.2.593 1990 Unknown [id number] .16.84 0.1.737063.3.579.2.593 1990 Unknown [id number] .16.84 0.1.674131.3.579.2.593 1990 Unknown [id number] 2.16.84 0.1.242482.3.579.2.593 1990 Unknown [id number] 2.16.84 0.1.558418.3.579.2.593 1990 Unknown [id number] 2.16.84 0.1.364197.3.579.2.593 1990 Unknown [id number] 2.16.84 0.1.466399.3.579.2.593 1990 Unknown [id number] 2.16.84 0.1.601422.3.579.2.593 1990 Unknown [id number] 2.16.84 0.1.908981.3.579.2.593 1990 Unknown [id number] 2.16.84 0.1.460256.3.579.2.593 1959 Private Health Insurance [id number] Unknown [id number] 2.16.8 40.1.952425.3.579.2.531 Progress note 11-24-2022 Note Date & Type [...] report that his father had a fatal VT at the age of 54. Stress test [...] factor modification -Plan (more content not included)... [facility] Progress note 11-24-2022 Note Date & Type [...] All other systems reviewed and are negative. [facility] Summary Purpose Family History No Family History [...] section and content) DATE CREATED AUTHOR 11/04/2020 [facility] DATE CREATED AUTHOR AUTHOR'S ORGANIZ ATION 01/08/2023 [facility] DATE CREATED AUTHOR AUTHOR'S ORGANIZ ATION 02/07/2023 [facility] DATE CREATED AUTHOR AUTHOR'S ORGANIZ ATION 04/01/2023 [facility] FOR RECORDS PERTAINING TO PATIENTS WHO [...] BE BASED ON THE PRIMARY CLINICAL RECORDS. [employer] [facility]. provides no warranty or guarantee of the accuracy or completeness of information in this document.
[2023-11-26 05:11] LABS: Lithium (Eskalith(R)), Serum 0.2 mmol/L (0.5-1.2)
--- NOTE | 2023-11-28 12:28 | CM.DCFOLLOWU ---
Person spoke with: Terence How are you feeling? still feeling rough How is your pain? still with pain. Called Dr. Mario's office this am and waiting for him to call back. Did you understand your discharge instructions? yes Do you have any questions about your discharge instructions? no Were you given any prescriptions at discharge? No. Continue previous meds. Were you able to get your prescriptions filled? NA Do you understand how to take your medications as ordered? NA Do you have any questions about your follow up appointment and do you plan to keep your follow up appointment? Follow up was as needed. Is there anything else that you would like to discuss? Nothing. Just waiting for Dr. Mario to call me back. Questions/Comments/Concerns/Other:
== END 2023-11-25 10:24 | disposition home or self-care (01) ==
LOC: ER 17:35 → MS 17:37
PROVIDERS: Physician Assistant; Admitting Provider Family Medicine; Emergency Provider Emergency Medicine; PCP Family Medicine; Visit Provider Family Medicine
DX: R11.15 Cyclical vomiting syndrome unrelated to migraine (principal); E86.0 Dehydration; I10 Essential (primary) hypertension; E87.6 Hypokalemia; R79.89 Other specified abnormal findings of blood chemistry; D72.829 Elevated white blood cell count, unspecified; F31.9 Bipolar disorder, unspecified; R10.9 Unspecified abdominal pain; F12.90 Cannabis use, unspecified, uncomplicated; Z79.899 Other long term (current) drug therapy
CPT/HCPCS: 36415; 74022; 80048; 80053; 80178; 80307; 81003; 82140; 82150; 83605; 83690; 83735; 85025; 94761; 96361; 96374; 96375; 96376; 99285; G0328; G0378; J1630; J2405; J2765; Q0177

== ENCOUNTER 2023-12-22 16:31 | Outpatient (OUT) | payer OTHER, SELFPAY ==
--- NOTE | 2023-12-22 16:35 | XR_ITS ---
The [address] [address] Patient Name: PAULINA CHARLES MRN: [id number] date: 1990 Sex: M Assigned Patient Location: [facility] Current Patient Location: [facility] Accession/Order Number: [id number] Exam Date: 12/22/2023 16:42 Report Date: 12/22/2023 17:57 At the request of: MELODY PHELPS Procedure: XR foot RT min 3V EXAM: XR foot RT min 3V HISTORY: foot pain M79.673 COMPARISON: 12/31/2019 TECHNIQUE: AP, oblique, lateral x-ray right foot. FINDINGS: Normal mineralization. No fracture or healing fracture or focal bone lesion. No erosive or destructive process. No joint narrowing, soft tissues unremarkable. Minimal spurring metatarsal phalangeal joint great toe unchanged.. Small bone densities with smooth well corticated margins adjacent to the DIP joint fifth toe and second toe unchanged, could be sequela of previous injury. XR/XR foot RT min 3V IMPRESSION: No acute abnormality, no change. Electronically authenticated by: AILYN STUBBS Date: 12/22/2023 17:57
== END 2023-12-22 16:32 | disposition home or self-care (01) ==
LOC: RAD 16:32
PROVIDERS: PCP Family Medicine; Visit Provider Family Medicine
DX: M79.673 Pain in unspecified foot (principal)
CPT/HCPCS: 73630

== ENCOUNTER 2024-01-04 08:31 | Outpatient (OUT) | payer OTHER, SELFPAY ==
--- NOTE | 2024-01-04 08:36 | MR_ITS ---
[address] [address] Patient Name: PAULINA CHARLES MRN: [id number] date: 1990 Sex: M Assigned Patient Location: MRI Current Patient Location: MRI Accession/Order Number: [id number] Exam Date: 01/04/2024 08:45 Report Date: 01/04/2024 12:35 At the request of: MELODY PHELPS Procedure: MR foot RT wo con HISTORY: Pain along the lateral aspect of the right foot in the region of the fifth metatarsal. MR foot RT wo con: 01/04/2024 8:45 AM EST COMPARISON: Radiographs right foot 12/22/2023. TECHNIQUE: Multiplanar, multisequence MRI images of the right foot were obtained without contrast. FINDINGS: Several images are degraded by motion artifact and this is most pronounced on the long axis T2 and short axis T1 images. LIGAMENTS AND TENDONS: The anterior talofibular ligament is not clearly visualized. The other major ligaments of the ankle appear grossly intact. The Lisfranc ligament complex appears intact. No significant tendinopathy, tendon tear, or tenosynovitis is seen. BONES AND JOINTS: The bone marrow signal intensity appears age appropriate. There is a mild hallux valgus deformity again seen and there is mild osteoarthritis of the first MTP joint with small marginal osteophytes. There are mild degenerative changes of the second tarsometatarsal joint. No bone marrow edema-like signal is seen. There is an os trigonum. There is a moderate amount of fluid within a joint recess posterior to the posterior subtalar joint. There are mild degenerative changes at the articulation of the navicular with the medial and middle cuneiform bones. There is a small joint effusion of the calcaneocuboid joint and this joint effusion extends into a mildly distended joint recess along the lateral aspect of the joint. MUSCLES AND SOFT TISSUES: The visualized musculature appears of normal signal intensity. No Gonzalez neuroma or intermetatarsal bursitis is seen. PLANTAR FASCIA: The visualized portion of the plantar fascia appears of normal thickness and signal intensity. MR/MR foot RT wo con IMPRESSION: 1. No stress reaction or stress fracture is seen. 2. 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 3. Mild hallux valgus deformity with mild osteoarthritis of the first MTP joint. 4. There is a small joint effusion of the calcaneocuboid joint and this joint effusion extends into a mildly distended joint recess along the lateral aspect of the joint. 5. Probable remote grade 3 sprain of the anterior talofibular ligament. No acute ligament injury is seen. 6. Please note that several images of this examination are degraded by motion artifact. Electronically authenticated by: MELODY CHRISTIANSEN Date: 01/04/2024 12:35
--- OUTSIDE RECORDS SUMMARY | 2024-01-04 08:43 | XMS_ITS | CCD ---
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 Name Role Phone DARREN MOHAMAD Referring Unavailable [...] Unavailable HOY ., DR OLIVER Admitting Unavailable ROBERTS, DR RAPHAEL Lemon Consulting Unavailable Michaels, K [...] Hospital Repository (1 source) Clarithromycin Drug Allergy [facility] Repository (1 source) Sulfamethoxazole / Trimethoprim Drug Allergy 05-27-20 17 [facility] Repository (1 source) Sulfamethoxazole Drug Allergy 03-20-20 [facility] Repository (1 source) Trimethoprim Drug Allergy 03-20-20 [facility] Repository Problems Active Problems Problem Classification Problem [...] 11-16-2022 Episodic Other aftercare (1 source) 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 Xdsbrlmvrc52[address] [place] [address]Dr. Chrissy Frazier AMYLASEon 01-04-2023 Amylase [Catalytic activity/Vol] 34 U/L Normal 25-[address] [facility] Comment on above: Performed By: #### A MY ####[facility] Jtbjctozwm[address] [place], [place] [address]Dr. Chrissy Frazier CBC AUTO DIFFon 01-04-2023 BASO # 0.0 103/ul Normal 0.0-0.1 [facility] Comment on above: Performed By: #### C BC ####[facility] Igxvowioze10[address] [place], [place] [address]Dr. Chrissy Frazier Basophils/100 WBC (Bld) 0.1 % Critically low 0.2-2.0 [facility] Comment on above: Performed By: #### C BC ####[facility] Lzbtpxjxvh915[address] [place], [place] [address]Dr. Chrissy Frazier EO # 0.0 103/ul Normal 0.0-0.7 [facility] Comment on above: Performed By: #### C BC ####[facility] Lpqguggcxo336[address] [place], [place] [address]Dr. Chrissy Frazier Eosinophils/100 WBC (Bld) 0.1 % Critically low 0.9-7.[address] [facility] Comment on above: Performed By: #### C BC ####[facility] Wdusdrycfd911[address] [place], [place] [address]Dr. Chrissy Frazier Erythrocyte distribution width (RBC) [Ratio] 14.0 % Normal 11.0-15.[address] [facility] Comment on above: Performed By: #### C BC ####[facility] Ngfcnmdyfs626[address] [place], [place] [address]Dr. Chrissy Frazier Hematocrit (Bld) [Volume fraction] 40.4 % Critically low 42.0-54.[address] [facility] Comment on above: Performed By: #### C BC ####[facility] Kjjrqunmjl6[address] [place] [address]Dr. Chrissy Frazier Hemoglobin (Bld) [Mass/Vol] 13.8 g/dL Critically low 14.0-18.0 [facility] Comment on above: Performed By: #### C BC ####[facility] Jyjdywyctr9245 [place] [address]Dr. Chrissy Frazier IG # 0.05 10e3/ul Critically high 0.00-0.03 [facility] Comment on above: Performed By: #### C BC ####[facility] Rdymqdhgty9069 [place] [address]Dr. Chrissy Frazier IG % 0.3 % Normal 0.0-0.5 [facility] Comment on above: Performed By: #### C BC ####[facility] Mzlnwksfqz850[address] [place], [place] [address]Dr. Chrissy Frazier LYMPH # 1.7 103/ul Normal 1.2-3.8 [facility] Comment on above: Performed By: #### C BC ####[facility] Lzbhgxodlo8310 [place] [address]Dr. Chrissy Frazier Lymphocytes/100 WBC (Bld) 11.9 % Critically low 20.5-60.0 [facility] Comment on above: Performed By: #### C BC ####[facility] Czbtbkohsj4163 [place] [address]Dr. Chrissy Frazier MANUAL DIFF REQ NO Normal [facility] Comment on above: Performed By: #### C BC ####[facility] Zrypyvtcii788[address] [place], [place] [address]Dr. Chrissy Frazier MCH (RBC) [Entitic mass] 29.3 pg Normal 25.9-34.[address] [facility] Comment on above: Performed By: #### C BC ####[facility] Wytxkhufmn2913[address] [place], [place] [address]Dr. Chrissy Frazier MCHC (RBC) [Mass/Vol] 34.2 g/dL Normal 29.9-35.[address] [facility] Comment on above: Performed By: #### C BC ####[facility] Uywlafjeps8310 [place] [id number]. Chrissy Frazier MCV (RBC) [Entitic vol] 85.8 fL Normal 80.0-94.0 [facility] Comment on above: Performed By: #### C BC ####[facility] Fstwjjzvpi5537 [place] [id number]. Chrissy Frazier MONO # 0.6 103/ul Normal 0.3-0.[address] [facility] Comment on above: Performed By: #### C BC ####[facility] Ihfxwripun3073 [place] [id number]. Chrissy Freddie Monocytes/100 WBC (Bld) 4.2 % Normal 1.7-12.0 [facility] Comment on above: Performed By: #### C BC ####[facility] Hnzhdezwdd[address] [place], [place] [address]Dr. Chrissy Frazier NEUT # 12.0 103/ul Critically high 1.4-6.5 [facility] Comment on above: Performed By: #### C BC ####[facility] Qfbmqxokcy440[address] [place], [place] [address]Dr. Chrissy Freddie Neutrophils/100 WBC (Bld) 83.4 % Critically high 43.0-75.0 [facility] Comment on above: Performed By: #### C BC ####[facility] Flbczcvrpo00[address] [place], [place] [address]Dr. Chrissy Freddie Platelet mean volume (Bld) [Entitic vol] 10.4 fL Normal 9.5-13.[address] [facility] Comment on above: Performed By: #### C BC ####[facility] Whfabqpesd516[address] [place], [place] [address]Dr. Tishrowan Frazier PLT 313 103/ul Normal 150-[address] [facility] Comment on above: Performed By: #### C BC ####[facility] Euhddjgwxc0099 [place] [id number]. Chrissy Frazier RBC 4.71 106/ul Normal 4.70-6.[address] [facility] Comment on above: Performed By: #### C BC ####[facility] Hncnsbalru0953 [place] [address]Dr. Chrissy Frazier WBC 14.4 103/ul Critically high 4.0-11.0 [facility] Comment on above: Performed By: #### C BC ####[facility] Uylckavfov9148 [place] [id number]. Chrissy Frazier CULTURE URINEon 01-04-2023 CULTURE URINE Culture Observations: NO GROWTH. Normal [facility] Comment on above: Performed By: #### U RCX ####[facility] Ackngnrziy0616 [place] [address]Dr. Chrissy Frazier DRUG SCREEN RAPID (URINE)on 01-04-2023 AMP Negative Normal NEGATIVE [facility] Comment on above: Performed By: #### D REYES, UAMIC ####[facility] Luunohnrfi7984[address] [place], [place] [address]Dr. Chrissy Frazier BAR Negative Normal NEGATIVE [facility] Comment on above: Performed By: #### D REYES, UAMIC ####[facility] Lopqcnscji6312 [place] [address]Dr. Chrissy Frazier BUP Negative Normal NEGATIVE [facility] Comment on above: Performed By: #### D REYES, UAMIC ####[facility] Othbnzegnn9118 [place] [address]Dr. Chrissy Frazier BZO Positive Abnormal NEGATIVE [facility] Comment on above: Performed By: #### Amelie CHAMBERS, UAMIC ####[facility] Uhactgunsu5602 [place] [address]Dr. Chrissy Frazier LAUREN Negative Normal NEGATIVE [facility] Comment on above: Performed By: #### D REYES, UAMIC ####[facility] Bljyipinjg3460[address] [place], [place] [address]Dr. Chrissy Frazier CUT-OFFS SEE BELOW Normal [facility] Comment on above: Result Comment: AMP [...] ng/mL Performed By: #### Amelie CHAMBERS, UAMIC ####[facility] Uyckkcvrwc2950[address] [place], [place] [address]Dr. [facility] DRUG CUT HEADER DRUG CLASS TEST SYSTEM CUT-OFF CONCENTRATIONS ARE FOLLOWS: Normal [facility] Comment on above: Performed By: #### Amelie CHAMBERS UAMIC ####[facility] Kfbacumsum4923[address] [place], [place] [address]Dr. [facility] mAMP Negative Normal NEGATIVE [facility] Comment on above: Performed By: #### Amelie CHAMBERS UAMIC ####[facility] Cuavstusav6330[address] [place], [place] [address]Dr. [facility] MTD Negative Normal NEGATIVE [facility] Comment on above: Performed By: #### Amelie CHAMBERS, UAMIC ####[facility] Zdudstzede047[address] [place], [place] [address]Dr. [facility] OPI Negative Normal NEGATIVE [facility] Comment on above: Performed By: #### Amelie CHAMBERS, UAMIC ####[facility] Dtezzoyzpb85[address] [place], [place] [address]Dr. [facility] OXY Negative Normal NEGATIVE [facility] Comment on above: Performed By: #### Amelie CHAMBERS, UAMIC ####[facility] Qtcuvykzlv448[address] [place], [place] [address]Dr. [facility] PCP Negative Normal NEGATIVE [facility] Comment on above: Performed By: #### Amelie CHAMBERS, UAMIC ####[facility] Immkuacpal327[address] [place], [place] [address]Dr. [facility] PPX Negative Normal NEGATIVE [facility] Comment on above: Performed By: #### Amelie CHAMBERS UAMIC ####[facility] Trmzarotoe4272 [place] [id number]. Chrissy Frazier TCA Positive Abnormal NEGATIVE [facility] Comment on above: Performed By: #### D REYES UAMIC ####[facility] Txbudbbams8467 [place] [address]Dr. Chrissy Frazier THC Positive Abnormal NEGATIVE [facility] Comment on above: Performed By: #### D REYES UAMIC ####[facility] Govfdwltsi7556 [place] [address]Dr. Chrissy Frazier LIPASEon 01-04-2023 Lipase [Catalytic activity/Vol] 57.0 U/L Critically low 73.0-393.0 [facility] Comment on above: Performed By: #### L IPA ####[facility] Rqeiwzjovn28[address] [place], [place] [address]Dr. Chrissy Frazier PROF 14(COMP METB)on 023 Albumin [Mass/Vol] 3.6 g/dL Normal 3.4-5.0 [facility] Comment on above: Performed By: #### C MP ####[facility] Affjnphowh1025 [place] [address]Dr. Chrissy Frazier Albumin/Globulin [Mass ratio] 1.0 {ratio} Normal [facility] Comment on above: Performed By: #### C MP ####[facility] Krdcvwikny1713 [place] [address]Dr. Chrissy Frazier ALP [Catalytic activity/Vol] 67 U/L Normal 46-[address] [facility] Comment on above: Performed By: #### C MP ####[facility] Vzmwjvdeng1741 [place] [address]Dr. Chrissy Frazier ALT [Catalytic activity/Vol] 26 U/L Normal 16-[address] [facility] Comment on above: Performed By: #### C MP ####[facility] Bqzsddetbh5439 [place] [address]Dr. Chrissy Frazier Anion gap [Moles/Vol] 16.3 mmol/L Normal [facility] Comment on above: Performed By: #### C MP ####[facility] Qwdjtbgcvy7189 [place] [id number]. Chrissy Frazier AST [Catalytic activity/Vol] 17 U/L Normal 15-[address] [facility] Comment on above: Performed By: #### C MP ####[facility] Fvkdamptik4033 [place] [id number]. Chrissy Frazier Bilirubin [Mass/Vol] 0.4 mg/dL Normal 0.2-1.[address] [facility] Comment on above: Performed By: #### C MP ####[facility] Lzzajntdek8520 [place] [id number]. Chrissy Frazier Calcium [Mass/Vol] 8.7 mg/dL Normal 8.5-10.1 [facility] Comment on above: Performed By: #### C MP ####[facility] Vejmfadsmg3931 [place] [id number]. Chrissy Frazier Chloride [Moles/Vol] 106 mmol/L Normal 98-[address] [facility] Comment on above: Performed By: #### C MP ####[facility] Cgyexknamt7924 [place] [id number]. Chrissy Frazier CO2 [Moles/Vol] 22.6 mmol/L Normal 21.0-32.0 [facility] Comment on above: Performed By: #### C MP ####[facility] Ltxnumwxzd7684 [place] [id number]. Chrissy Frazier Creatinine [Mass/Vol] 0.99 mg/dL Normal 0.70-1.[address] [facility] Comment on above: Performed By: #### C MP ####[facility] Kvtgnakaxa3422 [place] [id number]. Chrissy Frazier EGFR-AF MOLDOVAN >60 Normal >=60 [facility] Comment on above: Performed By: #### C MP ####[facility] Dxlizevghe8231 [place] [id number]. Chrissy Frazier EGFR-NON AF MOLDOVAN >60 Normal >=[address] [facility] Comment on above: Performed By: #### C MP ####[facility] Bqprletwcq23[address] [place], [place] [address]Dr. Chrissy Frazier Globulin (S) [Mass/Vol] 3.6 g/dL Normal [facility] Comment on above: Performed By: #### C MP ####[facility] Aodgnucptx625[address] [place], [place] [address]Dr. Chrissy Frazier Glucose [Mass/Vol] 138 mg/dL Critically high 74-106 [facility] Comment on above: Performed By: #### C MP ####[facility] Yrazuktfxx3713[address] [place], [place] [address]Dr. Chrissy Frazier Potassium [Moles/Vol] 3.9 mmol/L Normal 3.5-5.1 [facility] Comment on above: Performed By: #### C MP ####[facility] Vapsathfio844[address] [place], [place] [address]Dr. Chrissy Frazier Protein [Mass/Vol] 7.2 g/dL Normal 6.4-8.2 [facility] Comment on above: Performed By: #### C MP ####[facility] Bspbwzsmsi640[address] [place], [place] [address]Dr. Chrissy Frazier Sodium [Moles/Vol] 141 mmol/L Normal 136-145 [facility] Comment on above: Performed By: #### C MP ####[facility] Axscnljmrj448262 [address] [place], [place] [address]Dr. Chrissy Frazier Urea nitrogen [Mass/Vol] 10.0 mg/dL Normal 7.0-18.0 [facility] Comment on above: Performed By: #### C MP ####[facility] Rqewlnnosn5626[address] [place], [place] [address]Dr. Chrissy Freddie Urea nitrogen/Creatinine [Mass ratio] 10.1 mg/mg Normal [facility] Comment on above: Performed By: #### C MP ####[facility] Ggxiailjdu580[address] [place], [place] [address]Dr. Chrissy Freddie UA RANDOM W/MICROSCOPICon BACTERIA TRACE Abnormal NONE SEEN [facility] Comment on above: Performed By: #### D REYES, UAMIC ####[facility] Wecazhcsuh047[address] [place], [place] [address]Dr. Chrissy Frazier Bilirubin Ql (U) Negative Normal NEGATIVE [facility] Comment on above: Performed By: #### Amelie CHAMBERS, UAMIC ####[facility] Ucllsvcyet5840[address] [place], [place] [address]Dr. Chrissy Frazier CAST NONE SEEN Normal NONE SEEN [facility] Comment on above: Performed By: #### Amelie LARKIND, UAMIC ####[facility] Evjyukoytt332[address] [place], [place] [address]Dr. Chrissy Frazier Clarity (U) CLEAR Normal CLEAR [facility] Comment on above: Performed By: #### Amelie CHAMBERS, UAMIC ####[facility] Hkpcvoczkj159[address] [place], [place] [address]Dr. Chrissy Frazier Color (U) YELLOW Normal YELLOW [facility] Comment on above: Performed By: #### Amelie CHAMBERS, UAMIC ####[facility] Mhtjeqhakq3459[address] [place], [place] [address]Dr. Chrissy Frazier Crystals LM Nom (Urine sed) NONE SEEN Normal NONE SEEN [facility] Comment on above: Performed By: #### Amelie CHAMBERS, UAMIC ####[facility] Naksanwkaj097[address] [place], [place] [address]Dr. Chrissy Frazier Epithelial cells LM Ql (Urine sed) NONE SEEN Normal NONE SEEN /RARE [facility] Comment on above: Performed By: #### Amelie CHAMBERS, UAMIC ####[facility] Encqkaujug112[address] [place], [place] [address]Dr. Chrissy Frazier Glucose Ql (U) Negative Normal NEGATIVE [facility] Comment on above: Performed By: #### Amelie CHAMBERS, UAMIC ####[facility] Gozzxshoxl2477[address] [place], [place] [address]Dr. Chrissy Frazier Hemoglobin Ql (U) Negative Normal NEGATIVE [facility] Comment on above: Performed By: #### Amelie CHAMBERS, UAMIC ####[facility] Xbzxisnvzb7777[address] [place], [place] [address]Dr. Chrissy Frazier Ketones Ql (U) 15 mg/dl Abnormal NEGATIVE [facility] Comment on above: Performed By: #### Amelie CHAMBERS UAMIC ####[facility] Vvurjnxvuo9074 [place] [address]Dr. Chrissy Freddie LEUKOCYTES Negative Normal NEGATIVE [facility] Comment on above: Performed By: #### Amelie CHAMBERS UAMIC ####[facility] Tsxkqvljoq0760 [place] [address]Dr. Yirowan Frazier MUCOUS NONE SEEN Normal NONE SEEN [facility] Comment on above: Performed By: #### Amelie CHAMBERS UAMIC ####[facility] Bjqgqmhlis3508 [place] [address]Dr. Tishrowan Frazier Nitrite Ql (U) Negative Normal NEGATIVE [facility] Comment on above: Performed By: #### Amelie CHAMBERS UAMIC ####[facility] Dzqhrkdszw5373 [place] [address]Dr. Chrissy Frazier pH (U) 6.5 [pH] Normal 5-[address] [facility] Comment on above: Performed By: #### Amelie CHAMBERS UAMIC ####[facility] Jjohjbtncl8834[address] [place], [place] [address]Dr. Chrissy Frazier RBC NONE SEEN Abnormal 0-[address] [facility] Comment on above: Performed By: #### Amelie CHAMBERS UAMIC ####[facility] Dbzugqntsz8768[address] [place], [place] [address]Dr. Tishrowan Frazier SPEC GRAVITY 1.020 Normal 1.005-<=1.025 [facility] Comment on above: Performed By: #### Amelie CHAMBERS UAMIC ####[facility] Evncdbpjbi0625 [place] [address]Dr. Tishrowan Frazier UA PROTEIN Negative Normal NEGATIVE/ TRACE [facility] Comment on above: Performed By: #### Amelie CHAMBERS UAMIC ####[facility] Ngtxdethrt5619 [place] [address]Dr. Tishrowan Frazier Urobilinogen Qn (U) 0.2 {Estrellita'U}/dL Normal 0.2 - 1. [address] [facility] Comment on above: Performed By: #### Amelie CHAMBERS UAMIC ####[facility] Ndgeskmstv9039 [place] [address]Dr. Chrissy Frazier WBC NONE SEEN Normal NONE SEEN [facility] Comment on above: Performed By: #### D RUGRPD, UAMIC ####[facility] Otpkuzbkoe4900 [place] [address]Dr. Chrissy Frazier AMMONIAon 01-03-2023 Ammonia (P) [Moles/Vol] 17 umol/L Normal 11-[address] [facility] Comment on above: Performed By: #### A MM ####[facility] Cywebbvpwq188[address] [place], [place] [address]Dr. Chrissy Frazier AMYLASEon 01-03-2023 Amylase [Catalytic activity/Vol] 38 U/L Normal 25-[address] [facility] Comment on above: Performed By: #### L IPA, TERRENCE, CMP, MG ####[facility] Wvemrrjkze7093 [place] [address]Dr. Chrissy Frazier CBC AUTO DIFFon 01-03-2023 BASO # 0.1 103/ul Normal 0.0-0.[address] [facility] Comment on above: Performed By: #### C BC ####[facility] Hvvvczsywq4818 [place] [address]Dr. Chrissy Frazier Basophils/100 WBC (Bld) 0.4 % Normal 0.2-2.[address] [facility] Comment on above: Performed By: #### C BC ####[facility] Kuxqvhratm618[address] [place], [place] [address]Dr. Chrissy Frazier EO # 0.1 103/ul Normal 0.0-0.[address] [facility] Comment on above: Performed By: #### C BC ####[facility] Yrwzzsftro4465[address] [place], [place] [address]Dr. Chrissy Frazier Eosinophils/100 WBC (Bld) 0.3 % Critically low 0.9-7.[address] [facility] Comment on above: Performed By: #### C BC ####[facility] Qwqibyechc3684 [place] [address]Dr. Chrissy Frazier Erythrocyte distribution width (RBC) [Ratio] 13.7 % Normal 11.0-15.[address] [facility] Comment on above: Performed By: #### C BC ####[facility] Wxpbstnmet9607 [place] [address]Dr. Chrissy Frazier Hematocrit (Bld) [Volume fraction] 46.1 % Normal 42.0-54.0 [facility] Comment on above: Performed By: #### C BC ####[facility] Sevbwmplip3213 [place] [address]Dr. Chrissy Frazier Hemoglobin (Bld) [Mass/Vol] 15.4 g/dL Normal 14.0-18.0 [facility] Comment on above: Performed By: #### C BC ####[facility] Dsrlvhkfzp850[address] [place], [place] [address]Dr. Chrissy Frazier IG # 0.11 10e3/ul Critically high 0.00-0.03 [facility] Comment on above: Performed By: #### C BC ####[facility] Ysiuholiut1649[address] [place], [place] [address]Dr. Chrissy Frazier IG % 0.6 % Critically high 0.0-0.5 [facility] Comment on above: Performed By: #### C BC ####[facility] Fkegszixmq477[address] [place], [place] [address]Dr. Chrissy Freddie LYMPH # 2.5 103/ul Normal 1.2-3.8 [facility] Comment on above: Performed By: #### C BC ####[facility] Fqttaucmxb469[address] [place], [place] [address]Dr. Tishrowan Frazier Lymphocytes/100 WBC (Bld) 13.9 % Critically low 20.5-60.0 [facility] Comment on above: Performed By: #### C BC ####[facility] Iilfbnglfo24[address] [place], [place] [address]DrNancy Tishrowan Frazier MANUAL DIFF REQ NO Normal [facility] Comment on above: Performed By: #### C BC ####[facility] Lqdkqpenqd0164[address] [place], [place] [address]Dr. Tishrowan Frazier MCH (RBC) [Entitic mass] 28.6 pg Normal 25.9-34.0 [facility] Comment on above: Performed By: #### C BC ####[facility] Wyfaajvrzz7304 [place] [id number]. Chrissy Freddie MCHC (RBC) [Mass/Vol] 33.4 g/dL Normal 29.9-35.[address] [facility] Comment on above: Performed By: #### C BC ####[facility] Kiqtcddyhl3160 [place] [id number] Frazier MCV (RBC) [Entitic vol] 85.7 fL Normal 80.0-94.[address] [facility] Comment on above: Performed By: #### C BC ####[facility] Gaqaoifzwj214[address] [place], [place] [address]Dr. Chrissy Frazier MONO # 0.7 103/ul Normal 0.3-0.[address] [facility] Comment on above: Performed By: #### C BC ####[facility] Bkwuclexhn349[address] [place], [place] [address]Dr. Chrissy Frazier Monocytes/100 WBC (Bld) 4.0 % Normal 1.7-12.0 [facility] Comment on above: Performed By: #### C BC ####[facility] Tnbhdlvlhs0567[address] [place], [place] [address]DrNancy Frazier NEUT # 14.3 103/ul Critically high 1.4-6.5 [facility] Comment on above: Performed By: #### C BC ####[facility] Fdytzzqops7[address] [place], [place] [address]DrNancy Frazier Neutrophils/100 WBC (Bld) 80.8 % Critically high 43.0-75.[address] [facility] Comment on above: Performed By: #### C BC ####[facility] Oevsarguvg[address] [place], [place] [address]DrNancy Frazier Platelet mean volume (Bld) [Entitic vol] 10.4 fL Normal 9.5-13.[address] [facility] Comment on above: Performed By: #### C BC ####[facility] Enlljgojmh[address] [place], [place] [address]DrNancy Frazier PLT 437 103/ul Normal 150-[address] [facility] Comment on above: Performed By: #### C BC ####[facility] Fofbyamsrn2133 [place] [address]Dr. Chrissy Frazier RBC 5.38 106/ul Normal 4.70-6.[address] [facility] Comment on above: Performed By: #### C BC ####[facility] Hhlxguposq7506 [place] [address]Dr. Chrissy Frazier WBC 17.7 103/ul Critically high 4.0-11.0 [facility] Comment on above: Performed By: #### C BC ####[facility] Nbybevgwml7062 [place] [address]Dr. Chrissy Frazier CULTURE BLOODon 01-03-2023 Microscopic examination of blood, culture Culture Observations: NO GROWTH AT [address] [facility] Comment on above: Performed By: #### B LDCX1 ####[facility] Wuroifcxcq8[address] [place], [place] [address]Dr. Chrissy Frazier Performed By: #### B LDCX2 ####[facility] Kiwsatkczq[address] [place], [place] [address]Dr. Chrissy Frazier ECHOCARDIO M/2D COMPLETEon 0 01-03-2023 ECHOCARDIO M/2D COMPLETE Normal [facility] LACTATE/LACTIC ACIDon 2022 Lactate [Moles/Vol] 2.7 mmol/L Critically high 0.4-1.[address] [facility] Comment on above: Performed By: #### L ACT ####[facility] Ultcylozia120[address] [place], [place] [address]Dr. Chrissy Frazier Lactate [Moles/Vol] 6.3 mmol/L Critically high 0.4-1.[address] [facility] Comment on above: Performed By: #### L ACT ####[facility] Tcbtfhrfqq[address] [place], [place] [address]Dr. Chrissy Frazier LIPASEon 01-03-2023 Lipase [Catalytic activity/Vol] 74.0 U/L Normal 73.0-393.[address] [facility] Comment on above: Performed By: #### L IPA, TERRENCE, CMP, MG ####[facility] Vbmfigcbjj6[address] [place] [address]Dr. Chrissy Frazier MAGNESIUMon 01-03-2023 Magnesium [Mass/Vol] 1.6 mg/dL Critically low 1.8-2.4 [facility] Comment on above: Performed By: #### L IPA, TERRENCE, CMP, MG ####[facility] Feenvsiahu[address] [place] [address]Dr. Chrissy Frazier PROF 14(COMP METB)on 023 Albumin [Mass/Vol] 4.3 g/dL Normal 3.4-5.0 [facility] Comment on above: Performed By: #### L IPA, TERRENCE, CMP, MG ####[facility] Ombzzbfmhm[address] [place] [address]Dr. Chrissy Frazier Albumin/Globulin [Mass ratio] 1.1 {ratio} Normal [facility] Comment on above: Performed By: #### L IPA, TERRENCE, CMP, MG ####[facility] Mbvevuiuix7[address] [place] [address]Dr. Chrissy Frazier ALP [Catalytic activity/Vol] 87 U/L Normal 46-116 [facility] Comment on above: Performed By: #### L IPA, TERRENCE, CMP, MG ####[facility] Eudrogmnuc[address] [place], [place] [address]Dr. Chrissy Frazier ALT [Catalytic activity/Vol] 32 U/L Normal 16-63 [facility] Comment on above: Performed By: #### L IPA, TERRENCE, CMP, MG ####[facility] Ehtrxgrucv2936 [place] [address]Dr. Chrissy Frazier Anion gap [Moles/Vol] 24.0 mmol/L Normal [facility] Comment on above: Performed By: #### L IPA, TERRENCE, CMP, MG ####[facility] Adoxtcxjnf7044 [place] [address]Dr. Chrissy Frazier AST [Catalytic activity/Vol] 22 U/L Normal 15-37 [facility] Comment on above: Performed By: #### L IPA, TERRENCE, CMP, MG ####[facility] Zflyyaiqak7174 [place] [address]Dr. Chrissy Frazier Bilirubin [Mass/Vol] 0.6 mg/dL Normal 0.2-1.[address] [facility] Comment on above: Performed By: #### L IPA, TERRENCE, CMP, MG ####[facility] Tznjqrcdeu9802 [place] [address]Dr. Chrissy Frazier Calcium [Mass/Vol] 9.6 mg/dL Normal 8.5-10.1 [facility] Comment on above: Performed By: #### L IPA, TERRENCE, CMP, MG ####[facility] Jcsfnbnyvo2392 [place] [address]Dr. Chrissy Frazier Chloride [Moles/Vol] 103 mmol/L Normal 98-[address] [facility] Comment on above: Performed By: #### L IPA, TERRENCE, CMP, MG ####[facility] Ugtcocbvnd3665 [place] [address]Dr. Chrissy Frazier CO2 [Moles/Vol] 16.7 mmol/L Critically low 21.0-32.[address] [facility] Comment on above: Performed By: #### L IPA, TERRENCE, CMP, MG ####[facility] Yqpniohlbi0654 [place] [address]Dr. Chrissy Frazier Creatinine [Mass/Vol] 1.42 mg/dL Critically high 0.70-1.30 [facility] Comment on above: Performed By: #### L IPA, TERRENCE, CMP, MG ####[facility] Vzibtgzqeo2285 [place] [address]Dr. Chrissy Frazier EGFR-AF MOLDOVAN >60 Normal >=60 [facility] Comment on above: Performed By: #### L IPA, TERRENCE, CMP, MG ####[facility] Ieftanubxb[address] [place] [address]Dr. Chrissy Frazier EGFR-NON AF MOLDOVAN 58 mL/min/1.73m2 Critically low >=[address] [facility] Comment on above: Performed By: #### L IPA, TERRENCE, CMP, MG ####[facility] Fdfsfyuqhv4623 [place] [address]Dr. Chrissy Frazier Globulin (S) [Mass/Vol] 4.0 g/dL Normal [facility] Comment on above: Performed By: #### L IPA, TERRENCE, CMP, MG ####[facility] Mmcuvgkzlk4079 [place] [address]Dr. Chrissy Frazier Glucose [Mass/Vol] 149 mg/dL Critically high 74-106 [facility] Comment on above: Performed By: #### L IPA, TERRENCE, CMP, MG ####[facility] Kdqnldqynz2044 [place] [address]Dr. Chrissy Frazier Potassium [Moles/Vol] 3.7 mmol/L Normal 3.5-5.1 [facility] Comment on above: Performed By: #### L IPA, TERRENCE, CMP, MG ####[facility] Datyuswyob0178 [place] [address]Dr. Chrissy Frazier Protein [Mass/Vol] 8.3 g/dL Critically high 6.4-8.2 [facility] Comment on above: Performed By: #### L IPA, TERRENCE, CMP, MG ####[facility] Snxbzzblqh0784 [place] [address]Dr. Chrissy Frazier Sodium [Moles/Vol] 140 mmol/L Normal 136-145 [facility] Comment on above: Performed By: #### L IPA, TERRENCE, CMP, MG ####[facility] Mbysipzkcp4193 [place] [address]Dr. Chrissy Frazier Urea nitrogen [Mass/Vol] 16.0 mg/dL Normal 7.0-18.0 [facility] Comment on above: Performed By: #### L IPA, TERRENCE, CMP, MG ####[facility] Foirpqeqhs6542 [place] [address]Dr. Chrissy Frazier Urea nitrogen/Creatinine [Mass ratio] 11.3 mg/mg Normal [facility] Comment on above: Performed By: #### L IPA, TERRENCE, CMP, MG ####[facility] Wdhboqlelk6032 [place] [address]Dr. Chrissy Frazier SED RATE [facility] 2022 SED RATE 37 mm/hr Critically high <=15 [facility] Comment on above: Performed By: #### S EDR ####[facility] Erehbzikwc8713 [place], [place] [address]Qb. Chrissy Frazier XR ABD FLAT UP_PA Enoch 01-03 XR ABD FLAT UP_PA CH Normal [facility] CT HEART CORONARY ANGIOGRAMo n 12-13-2022 [facility] Follow-up visit [id number] Terence Montero 1990 M Date Provider Department Center 11/24/2022 3848-RAQUEL BANKS [facility] Family History Problem Relation Age of Onset Coronary artery disease Father Heart attack Father 54 Family Status - Relation Status Age at Father Level of Service:50422 OR OFFICE/OUTPATIENT NEW MODERATE MDM 45-59 MINUTES Reason for Visit and Comments: abnormal stress test [Other] Normal [facility] CARDIAC STRESS TESTon 2021 CARDIAC STRESS TEST Normal [facility] AMYLASEon 10-24-2022 Amylase [Catalytic activity/Vol] 26 U/L Normal 25-[address] [facility] Comment on above: Performed By: #### C MP, LIPA, TERRENCE ####[facility] Kdcnzhjazc2357 [place], [place] [address]RwNancy Chrissy Frazier CBC AUTO DIFFon 10-24-2022 BASO # 0.0 103/ul Normal 0.0-0.1 [facility] Comment on above: Performed By: #### C BC ####[facility] Vcbzqugdrs0300 [place] [id number]. Chrissy Frazier Basophils/100 WBC (Bld) 0.2 % Normal 0.2-2.[address] [facility] Comment on above: Performed By: #### C BC ####[facility] Vqrzotiayg5112 [place] [id number]. Chrissy Frazier EO # 0.1 103/ul Normal 0.0-0.[address] [facility] Comment on above: Performed By: #### C BC ####[facility] Jkclryginx02[address] [place], [place] [address]Dr. Chrissy Frazier Eosinophils/100 WBC (Bld) 0.4 % Critically low 0.9-7.[address] [facility] Comment on above: Performed By: #### C BC ####[facility] Fjxrogswvg174[address] [place], [place] [address]Dr. Chrissy Frazier Erythrocyte distribution width (RBC) [Ratio] 14.6 % Normal 11.0-15.[address] [facility] Comment on above: Performed By: #### C BC ####[facility] Tnzppepqlo[address] [place], [place] [address]Dr. Chrissy Frazier Hematocrit (Bld) [Volume fraction] 39.4 % Critically low 42.0-54.0 [facility] Comment on above: Performed By: #### C BC ####[facility] Qhqtzesguk[address] [place], [place] [address]Dr. Chrissy Frazier Hemoglobin (Bld) [Mass/Vol] 13.2 g/dL Critically low 14.0-18.[address] [facility] Comment on above: Performed By: #### C BC ####[facility] Arlhrmyhco5411 [place] [id number]. Chrissy Frazier IG # 0.07 10e3/ul Critically high 0.00-0.03 [facility] Comment on above: Performed By: #### C BC ####[facility] Zgkmxkjdvs[address] [place], [place] [address]Dr. Chrissy Frazier IG % 0.5 % Normal 0.0-0.[address] [facility] Comment on above: Performed By: #### C BC ####[facility] Kynrpvujdo4513 [place] [id number]. Chrissy Frazier LYMPH # 3.7 103/ul Normal 1.2-3.[address] [facility] Comment on above: Performed By: #### C BC ####[facility] Kxxrjsctzz6710 [place], [place] [address]Qp. Chrissy Frazier Lymphocytes/100 WBC (Bld) 27.0 % Normal 20.5-60.[address] [facility] Comment on above: Performed By: #### C BC ####[facility] Xgckkzedqv5877 [place] [id number]. Chrissy Freddie MANUAL DIFF REQ NO Normal [facility] Comment on above: Performed By: #### C BC ####[facility] Itnlnuqtoa9584 [place] [id number]. Chrissy Freddie MCH (RBC) [Entitic mass] 27.8 pg Normal 25.9-34.[address] [facility] Comment on above: Performed By: #### C BC ####[facility] Ioobnpkftb6598 [place] [id number]. Chrissy Frazier MCHC (RBC) [Mass/Vol] 33.5 g/dL Normal 29.9-35.[address] [facility] Comment on above: Performed By: #### C BC ####[facility] Ngnltmeior9245 [place] [id number]. Chrissy Freddie MCV (RBC) [Entitic vol] 82.9 fL Normal 80.0-94.[address] [facility] Comment on above: Performed By: #### C BC ####[facility] Vkmoneeuru3305 [place] [address]Dr. Chrissy Freddie MONO # 1.2 103/ul Critically high 0.3-0.8 [facility] Comment on above: Performed By: #### C BC ####[facility] Rmfvqmliqj3836 [place] [address]Dr. Chrissy Freddie Monocytes/100 WBC (Bld) 8.4 % Normal 1.7-12.[address] [facility] Comment on above: Performed By: #### C BC ####[facility] Srkcmynpgz4762 [place] [id number]. Chrissy Frazier NEUT # 8.8 103/ul Critically high 1.4-6.5 [facility] Comment on above: Performed By: #### C BC ####[facility] Vgjjjbblgj6836 [place] [id number]. Chrissy Frazier Neutrophils/100 WBC (Bld) 63.5 % Normal 43.0-75.[address] [facility] Comment on above: Performed By: #### C BC ####[facility] Eknddvgupo3664 [place] [id number]. Chrissy Frazier Platelet mean volume (Bld) [Entitic vol] 10.7 fL Normal 9.5-13.[address] [facility] Comment on above: Performed By: #### C BC ####[facility] Ylcazjzozf6724 [place] [id number]. Chrissy Frazier PLT 291 103/ul Normal 150-[address] [facility] Comment on above: Performed By: #### C BC ####[facility] Wpomnkpbri3836 [place] [address]Dr. Chrissy Frazier RBC 4.75 106/ul Normal 4.70-6.[address] [facility] Comment on above: Performed By: #### C BC ####[facility] Fahtircyom6402 [place] [address]Dr. Chrissy Frazier WBC 13.8 103/ul Critically high 4.0-11.0 [facility] Comment on above: Performed By: #### C BC ####[facility] Rjkpowpyjn4303 [place] [id number]. Chrissy Freddie LIPASEon 10-24-2022 Lipase [Catalytic activity/Vol] 44.0 U/L Critically low 73.0-393.[address] [facility] Comment on above: Performed By: #### C MP, LIPA, TERRENCE ####[facility] Woztjclzyj0836 [place] [id number]. Chrissy Frazier PROF 14(COMP METB)on 022 Albumin [Mass/Vol] 3.4 g/dL Normal 3.4-5.0 [facility] Comment on above: Performed By: #### C MP, LIPA, TERRENCE ####[facility] Xsaakhgwuz5357 [place] [address]Dr. Tishrowan Freddie Albumin/Globulin [Mass ratio] 0.9 {ratio} Normal [facility] Comment on above: Performed By: #### C MP, LIPA, TERRENCE ####[facility] Rwdbbnvjya2089 [place] [address]Dr. Chrissy Freddie ALP [Catalytic activity/Vol] 67 U/L Normal 46-116 [facility] Comment on above: Performed By: #### C MP, LIPA, TERRENCE ####[facility] Osapkmldzm[address] [place], [place] [address]Dr. Chrissy Fraizer ALT [Catalytic activity/Vol] 25 U/L Normal 16-63 [facility] Comment on above: Performed By: #### C MP, LIPA, TERRENCE ####[facility] Wrsdfhmayp477[address] [place], [place] [address]Dr. Tishrowan Freddie Anion gap [Moles/Vol] 14.5 mmol/L Normal [facility] Comment on above: Performed By: #### C MP LIPA, TERRENCE ####[facility] Ukizgohodc[address] [place], [place] [address]Dr. Chrissy Freddie AST [Catalytic activity/Vol] 17 U/L Normal 15-37 [facility] Comment on above: Performed By: #### C MP, LIPA, TERRENCE ####[facility] Iogfhfbbvx288[address] [place], [place] [address]Dr. Chrissy Frazier Bilirubin [Mass/Vol] 0.5 mg/dL Normal 0.2-1.[address] [facility] Comment on above: Performed By: #### C MP, LIPA, TERRENCE ####[facility] Dhhtjbjvtv024[address] [place], [place] [address]Dr. Chrissy Frazier Calcium [Mass/Vol] 8.6 mg/dL Normal 8.5-10.1 [facility] Comment on above: Performed By: #### C MP, LIPA, TERRENCE ####[facility] Eqaysmzfup[address] [place], [place] [address]Dr. Chrissy Frazier Chloride [Moles/Vol] 106 mmol/L Normal 98-[address] [facility] Comment on above: Performed By: #### C OSWALD ADAIR AMY ####[facility] Ydruzxrpen6391 [place] [address]Dr. Chrissy Frazier CO2 [Moles/Vol] 22.8 mmol/L Normal 21.0-32.0 [facility] Comment on above: Performed By: #### C OSWALD ADAIR, TERRENCE ####[facility] Rjkizjzogv448[address] [place], [place] [address]Dr. Chrissy Frazier Creatinine [Mass/Vol] 0.98 mg/dL Normal 0.70-1.[address] [facility] Comment on above: Performed By: #### C OSWALD ADAIR AMY ####[facility] Pmqqvjjhmt728[address] [place], [place] [address]Dr. Chrissy Frazier EGFR-AF MOLDOVAN >60 Normal >=60 [facility] Comment on above: Performed By: #### C OSWALD ADAIR TERRENCE ####[facility] Syagerzxmo1936[address] [place], [place] [address]Dr. Chrissy Frazier EGFR-NON AF MOLDOVAN >60 Normal >=[address] [facility] Comment on above: Performed By: #### C OSWALD ADAIR TERRENCE ####[facility] Pbguhcqhxs0652 [place] [address]Dr. Chrissy Frazier Globulin (S) [Mass/Vol] 3.7 g/dL Normal [facility] Comment on above: Performed By: #### C OSWALD ADAIR TERRENCE ####[facility] Hmosufjuuc0553 [place] [address]Dr. Chrissy Frazier Glucose [Mass/Vol] 115 mg/dL Critically high 74-106 [facility] Comment on above: Performed By: #### C OSWALD ADAIR, TERRENCE ####[facility] Btdlvsnzik3189[address] [place], [place] [address]Dr. Chrissy Frazier Potassium [Moles/Vol] 3.3 mmol/L Critically low 3.5-5.[address] [facility] Comment on above: Performed By: #### C TESSA ADAIRA, TERRENCE ####[facility] Tgudpufzag1906 [place] [address]Dr. Chrissy Frazier Protein [Mass/Vol] 7.1 g/dL Normal 6.4-8.2 [facility] Comment on above: Performed By: #### C MP, LIPA, TERRENCE ####[facility] Rdinakszcw1505[address] [place], [place] [address]Dr. Chrissy Frazier Sodium [Moles/Vol] 140 mmol/L Normal 136-145 [facility] Comment on above: Performed By: #### C MP, LIPA, TERRENCE ####[facility] Cvloybmpqg032[address] [place], [place] [address]Dr. Chrissy Frazier Urea nitrogen [Mass/Vol] 10.0 mg/dL Normal 7.0-18.[address] [facility] Comment on above: Performed By: #### C MP, LIPA, TERRENCE ####[facility] Nuokthluha8412[address] [place], [place] [address]Dr. Chrissy Frazier Urea nitrogen/Creatinine [Mass ratio] 10.2 mg/mg Normal [facility] Comment on above: Performed By: #### C MP, LIPA, TERRENCE ####[facility] Dnjbgsrvxv26[address] [place], [place] [address]Dr. Chrissy Frazier AMYLASEon 10-23-2022 Amylase [Catalytic activity/Vol] 31 U/L Normal 25-[address] [facility] Comment on above: Performed By: #### C MP, LIPA, TERRENCE ####[facility] Ozbqyhvydl[address] [place], [place] [address]Dr. Chrissy Frazier CBC AUTO DIFFon 10-23-2022 BASO # 0.1 103/ul Normal 0.0-0.1 [facility] Comment on above: Performed By: #### C BC ####[facility] Xppxwinkfd607[address] [place], [place] [address]Dr. Chrissy Frazier Basophils/100 WBC (Bld) 0.3 % Normal 0.2-2.0 [facility] Comment on above: Performed By: #### C BC ####[facility] Occpfaygrv580[address] [place], [place] [address]Dr. Chrissy Frazier EO # 0.1 103/ul Normal 0.0-0.[address] [facility] Comment on above: Performed By: #### C BC ####[facility] Pgbtojzltl0443 [place] [address]Dr. Chrissy Frazier Eosinophils/100 WBC (Bld) 0.3 % Critically low 0.9-7.[address] [facility] Comment on above: Performed By: #### C BC ####[facility] Efnayrucxn9783 [place] [address]Dr. Chrissy Frazier Erythrocyte distribution width (RBC) [Ratio] 14.5 % Normal 11.0-15.[address] [facility] Comment on above: Performed By: #### C BC ####[facility] Qnzzlvgoxy2569 [place] [address]Dr. Chrissy Frazier Hematocrit (Bld) [Volume fraction] 44.0 % Normal 42.0-54.[address] [facility] Comment on above: Performed By: #### C BC ####[facility] Wttdrukcjx2865 [place] [address]Dr. Chrissy Frazier Hemoglobin (Bld) [Mass/Vol] 14.8 g/dL Normal 14.0-18.[address] [facility] Comment on above: Performed By: #### C BC ####[facility] Ihskekgqol6006 [place] [address]Dr. Chrissy Frazier IG # 0.09 10e3/ul Critically high 0.00-0.03 [facility] Comment on above: Performed By: #### C BC ####[facility] Hbjpkdsqiu5158 [place] [address]Dr. Chrissy Frazier IG % 0.5 % Normal 0.0-0.[address] [facility] Comment on above: Performed By: #### C BC ####[facility] Wmajqmivdw9155 [place] [address]Dr. Chrissy Frazier LYMPH # 3.6 103/ul Normal 1.2-3.[address] [facility] Comment on above: Performed By: #### C BC ####[facility] Aedswkuadq5995 [place] [address]Dr. Tishrowan Frazier Lymphocytes/100 WBC (Bld) 19.4 % Critically low 20.5-60.[address] [facility] Comment on above: Performed By: #### C BC ####[facility] Tgswxiwiap3744 [place] [address]Dr. Tishrowan Frazier MANUAL DIFF REQ NO Normal [facility] Comment on above: Performed By: #### C BC ####[facility] Vcpvatjwxa0058 [place] [address]Dr. Chrissy Freddie MCH (RBC) [Entitic mass] 28.1 pg Normal 25.9-34.[address] [facility] Comment on above: Performed By: #### C BC ####[facility] Uqbohpmnop84[address] [place], [place] [address]Dr. Chrissy Frazier MCHC (RBC) [Mass/Vol] 33.6 g/dL Normal 29.9-35.[address] [facility] Comment on above: Performed By: #### C BC ####[facility] Hxbjddbjcp[address] [place], [place] [address]Dr. Chrissy Frazier MCV (RBC) [Entitic vol] 83.5 fL Normal 80.0-94.[address] [facility] Comment on above: Performed By: #### C BC ####[facility] Cqmmjtoaoh24[address] [place], [place] [address]Dr. Chrissy Frazier MONO # 0.9 103/ul Critically high 0.3-0.8 [facility] Comment on above: Performed By: #### C BC ####[facility] Rghqnxlszv986[address] [place], [place] [address]Dr. Chrissy Frazier Monocytes/100 WBC (Bld) 4.9 % Normal 1.7-12.[address] [facility] Comment on above: Performed By: #### C BC ####[facility] Wxhlonobaw969[address] [place], [place] [address]Dr. Chrissy Frazier NEUT # 13.9 103/ul Critically high 1.4-6.5 [facility] Comment on above: Performed By: #### C BC ####[facility] Jtcqnrvknx0518 [place] [id number]. Chrissy Frazier Neutrophils/100 WBC (Bld) 74.6 % Normal 43.0-75.[address] [facility] Comment on above: Performed By: #### C BC ####[facility] Llpoghyibu4682 [place] [id number]. Chrissy Frazier Platelet mean volume (Bld) [Entitic vol] 10.5 fL Normal 9.5-13.[address] [facility] Comment on above: Performed By: #### C BC ####[facility] Ewomvedzsw0459 [place] [id number]. Chrissy Frazier PLT 402 103/ul Normal 150-[address] [facility] Comment on above: Performed By: #### C BC ####[facility] Yvqrusxyly594[address] [place], [place] [address]Dr. Chrissy Frazier RBC 5.27 106/ul Normal 4.70-6.[address] [facility] Comment on above: Performed By: #### C BC ####[facility] Dwfybcdcll02[address] [place], [place] [address]Dr. Chrissy Frazier WBC 18.6 103/ul Critically high 4.0-11.0 [facility] Comment on above: Performed By: #### C BC ####[facility] Xq[address]emxwbpf[address] [place], [place] [address]Dr. Chrissy Frazier CULTURE BLOODon 10-23-2022 Microscopic examination of blood, culture Culture Observations: NO GROWTH AT 5 DAYS. Normal [facility] Comment on above: Performed By: #### B LDCX2 ####[facility] Gmkfmemgod0409 [place] [id number]. Chrissy Frazier Microscopic examination of blood, culture Culture Observations: NO GROWTH AT 5 DAYS. Normal [facility] Comment on above: Performed By: #### B LDCX1 ####[facility] Qholikgmil[address] [place], [place] [address]Dr. Chrissy Frazier CULTURE URINEon 10-23-2022 CULTURE URINE Culture Observations: NO GROWTH. Normal [facility] Comment on above: Performed By: #### U RCX ####[facility] Ccwfmwngos40[address] [place], [place] [address]Dr. Chrissy Frazier Covid-19 PCR (CVDTB)on SARS-CoV-2 (COVID-19) RNA RHIANNON+probe Ql (Unsp spec) Not detected Normal NOT DETECTED [facility] Comment on above: Result Comment: When [...] for this test is supported by the [place] [employer] and Human Service's declaration that [...] be used). Performed By: #### C VDTBH ####[facility] Snvmvwpclq[address] [place] [address]. Chrissy Frazier INFLUENZA A AND B AGon 10-23 INFLUANEGH SEE BELOW Normal [facility] Comment on above: Result Comment: Nega tive for Flu A protein angiten. Infection due to Flu A cannot be ruled out. Flu A angiten in the sample may be below the detection limit of the test. Performed By: #### I NFLUAB ####[facility] Csouicgscr8[address] [place], [place] [address]Dr. Chrissy Frazier INFLUBNEGH SEE BELOW Normal [facility] Comment on above: Result Comment: Nega tive for Flu B protein antigen. Infection due to Flu B cannot be ruled out. Flu B antigen in the sample may be below the detection limit of the test. Performed By: #### I NFLUAB ####[facility] Udegsihreb05[address] [place], [place] [address]Dr. Chrissy [facility] INFLUENZA A AG Negative Normal NEGATIVE SEE COMMENT [facility] Comment on above: Performed By: #### I NFLUAB ####[facility] [facility] [address]iewpnhx[address] [place] [address]Dr. Chrissy Frazier INFLUENZA B AG Negative Normal NEGATIVE SEE COMMENT [facility] Comment on above: Performed By: #### I NFLUAB ####[facility] Gyezhcpsmk15[address] [place] [address]Dr. Chrissy Frazier INTERNAL CONTROLS Within Normal Limits Normal Wi thin Normal Limits [facility] Comment on above: Performed By: #### I NFLUAB ####[facility] Bpyvjwxhtv25[address] [place], [place] [address]Dr. Chrissy Frazier LACTATE/LACTIC ACIDon 2021 Lactate [Moles/Vol] 2.1 mmol/L Critically high 0.4-1.9 [facility] Comment on above: Performed By: #### L ACT ####[facility] Furyvmtnpb615[address] [place], [place] [address]Dr. Chrissy Frazier Lactate [Moles/Vol] 6.9 mmol/L Critically high 0.4-1.9 [facility] Comment on above: Performed By: #### L ACT ####[facility] Sjvthrymgq[address] [place], [place] [address]Dr. Chrissy Frazier LIPASEon 10-23-2022 Lipase [Catalytic activity/Vol] 72.0 U/L Critically low 73.0-393.0 [facility] Comment on above: Performed By: #### C OSWALD ADAIR AMY ####[facility] Klghzmksrw680[address] [place], [place] [address]Dr. Chrissy Frazier PROF 14(COMP METB)on 022 Albumin [Mass/Vol] 3.9 g/dL Normal 3.4-5.0 [facility] Comment on above: Performed By: #### C OSWALD ADAIR AMY ####[facility] Afnevemxzp027[address] [place], [place] [address]Dr. Chrissy Frazier Albumin/Globulin [Mass ratio] 0.9 {ratio} Normal [facility] Comment on above: Performed By: #### C OSWALD ADAIR AMY ####[facility] Vwxnskgbdz20[address] [place] [address]Dr. Chrissy Frazier ALP [Catalytic activity/Vol] 82 U/L Normal 46-[address] [facility] Comment on above: Performed By: #### C MP, LIPA, TERRENCE ####[facility] Ippiyakijt4[address] [place] [address]Dr. Chrissy Frazier ALT [Catalytic activity/Vol] 25 U/L Normal 16-[address] [facility] Comment on above: Performed By: #### C MP, LIPA, TERRENCE ####[facility] Jxkoakxlpi9235 [place] [address]Dr. Chrissy Frazier Anion gap [Moles/Vol] 18.1 mmol/L Normal [facility] Comment on above: Performed By: #### C MP, LIPA, TERRENCE ####[facility] Fzoheegksd112[address] [place], [place] [address]Dr. Chrissy Frazier AST [Catalytic activity/Vol] 17 U/L Normal 15-37 [facility] Comment on above: Performed By: #### C MP, LIPA, TERRENCE ####[facility] Kbtxvjoszn6535[address] [place], [place] [address]Dr. Chrissy Frazier Bilirubin [Mass/Vol] 0.5 mg/dL Normal 0.2-1.0 [facility] Comment on above: Performed By: #### C MP, LIPA, TERRENCE ####[facility] Vznoljqrnt7547 [place] [address]Dr. Chrissy Frazier Calcium [Mass/Vol] 9.1 mg/dL Normal 8.5-10.1 [facility] Comment on above: Performed By: #### C MP, LIPA, TERRENCE ####[facility] Hfmgpznmfw2744 [place] [address]Dr. Chrissy Frazier Chloride [Moles/Vol] 101 mmol/L Normal 98-107 [facility] Comment on above: Performed By: #### C MP, LIPA, TERRENCE ####[facility] Mndqysfxum6324 [place] [address]Dr. Chrissy Frazier CO2 [Moles/Vol] 19.2 mmol/L Critically low 21.0-32.0 [facility] Comment on above: Performed By: #### C OSWALD ADAIR, TERRENCE ####[facility] Grsxsidjft9972 [place] [address]Dr. Chrissy Frazier Creatinine [Mass/Vol] 1.72 mg/dL Critically high 0.70-1.30 [facility] Comment on above: Performed By: #### C TESSA ADAIRA, TERRENCE ####[facility] Puuiwmtiol6[address] [place] [address]Dr. Chrissy Frazier EGFR-AF MOLDOVAN 56 mL/min/1.73m2 Critically low >=60 [facility] Comment on above: Performed By: #### C OSWALD ADAIR, TERRENCE ####[facility] Yfrqmyafpq3038[address] [place], [place] [address]Dr. Chrissy Frazier EGFR-NON AF MOLDOVAN 46 mL/min/1.73m2 Critically low >=60 [facility] Comment on above: Performed By: #### C MANA LIPA, TERRENCE ####[facility] Uksptkrywr914[address] [place], [place] [address]Dr. Chrissy Frazier Globulin (S) [Mass/Vol] 4.2 g/dL Normal [facility] Comment on above: Performed By: #### C OSWALD ADAIR, TERRENCE ####[facility] Mciblkebcj00[address] [place] [address]Dr. Chrissy Frazier Glucose [Mass/Vol] 126 mg/dL Critically high 74-106 [facility] Comment on above: Performed By: #### C MANA LIPA, TERRENCE ####[facility] Qspieustqi6916 [place] [address]Dr. Chrissy Frazier Potassium [Moles/Vol] 3.3 mmol/L Critically low 3.5-5.1 [facility] Comment on above: Performed By: #### C MANA LIPA, TERRENCE ####[facility] Ytdihqyacb6131 [place] [address]Dr. Tishrowan Frazier Protein [Mass/Vol] 8.1 g/dL Normal 6.4-8.2 [facility] Comment on above: Performed By: #### C MANA LIPA, TERRENCE ####[facility] Nulopzevss75[address] [place] [address]Dr. Chrissy Frazier Sodium [Moles/Vol] 135 mmol/L Critically low 136-[address] [facility] Comment on above: Performed By: #### C MANA LIPA, TERRENCE ####[facility] Atjkyhstro9534[address] [place], [place] [address]Dr. Chrissy Frazier Urea nitrogen [Mass/Vol] 13.0 mg/dL Normal 7.0-18.0 [facility] Comment on above: Performed By: #### C MANA LIPA, TERRENCE ####[facility] Hjzfpeuhao26[address] [place], [place] [address]Dr. Chrissy Frazier Urea nitrogen/Creatinine [Mass ratio] 7.6 mg/mg Normal [facility] Comment on above: Performed By: #### C MANA LIPBean, TERRENCE ####[facility] Gvgvndjvgg975962 [address] [place], [place] [address]Dr. Chrissy Frazier UA RANDOM W/MICROSCOPICon BACTERIA NONE SEEN Normal NONE SEEN [facility] Comment on above: Performed By: #### U AMIC ####[facility] Hdbmgxosbh6640[address] [place], [place] [address]Dr. Chrissy Frazier Bilirubin Ql (U) Negative Normal NEGATIVE [facility] Comment on above: Performed By: #### U AMIC ####[facility] Abuitrgadv827962 [address] [place], [place] [address]Dr. Chrissy Frazier CAST NONE SEEN Normal NONE SEEN [facility] Comment on above: Performed By: #### U AMIC ####[facility] Qygipajmkk330362 [address] [place], [place] [address]Dr. Chrissy Frazier Clarity (U) CLEAR Normal CLEAR [facility] Comment on above: Performed By: #### U AMIC ####[facility] Gfmjgrnill327862 [address] [place], [place] [address]Dr. Chrissy Frazier Color (U) LT. YELLOW Normal YELLOW [facility] Comment on above: Performed By: #### U AMIC ####[facility] Ggowatnatt628[address] [place], [place] [address]Dr. Chrissy Frazier Crystals LM Nom (Urine sed) NONE SEEN Normal NONE SEEN [facility] Comment on above: Performed By: #### U AMIC ####[facility] Phnqhjtsvy3539[address] [place], [place] [address]Dr. Chrissy Frazier Epithelial cells LM Ql (Urine sed) FEW Abnormal NONE SEEN /RARE [facility] Comment on above: Performed By: #### U AMIC ####[facility] Qxqogkfkef0107[address] [place], [place] [address]Dr. Chrissy Frazier Glucose Ql (U) Negative Normal NEGATIVE [facility] Comment on above: Performed By: #### U AMIC ####[facility] Lfffzkiixi204162 [address] [place], [place] [address]Dr. Chrissy Frazier Hemoglobin Ql (U) Negative Normal NEGATIVE [facility] Comment on above: Performed By: #### U AMIC ####[facility] Dtksomnpnm9650[address] [place], [place] [address]Dr. Chrissy Frazier Ketones Ql (U) 15 mg/dl Abnormal NEGATIVE [facility] Comment on above: Performed By: #### U AMIC ####[facility] Tnvqlbcijj6317[address] [place], [place] [address]Dr. Chrissy Frazier LEUKOCYTES Negative Normal NEGATIVE [facility] Comment on above: Performed By: #### U AMIC ####[facility] Aeyynfnslg9904[address] [place], [place] [address]Dr. Chrissy Farzier MUCOUS NONE SEEN Normal NONE SEEN [facility] Comment on above: Performed By: #### U AMIC ####[facility] Cxicyoreok314962 [address] [place], [place] [address]Dr. Chrissy Frazier Nitrite Ql (U) Negative Normal NEGATIVE [facility] Comment on above: Performed By: #### U AMIC ####[facility] Jpxyoectkw7039[address] [place], [place] [address]Dr. Chrissy Frazier pH (U) 6.0 [pH] Normal 5-[address] [facility] Comment on above: Performed By: #### U AMIC ####[facility] Xtyaubbpgf8[address] [place], [place] [address]Dr. Chrissy Frazier RBC 0-2 Normal 0-[address] [facility] Comment on above: Performed By: #### U AMIC ####[facility] Cawueobgoa45[address] [place] [id number]. Chrissy Frazier SPEC GRAVITY 1.010 Normal 1.005-<=1.025 [facility] Comment on above: Performed By: #### U AMIC ####[facility] Hsnbkybryn9392 [place] [address]Dr. Chrissy Freddie UA PROTEIN Negative Normal NEGATIVE/ TRACE [facility] Comment on above: Performed By: #### U AMIC ####[facility] Zfygizandt3189 [place] [id number]. Chrissy Freddie Urobilinogen Qn (U) 0.2 {Estrellita'U}/dL Normal 0.2 - 1. [address] [facility] Comment on above: Performed By: #### U AMIC ####[facility] Invzcvttgp768162 [address] [place], [place] [address]Dr. Chrissy Freddie WBC NONE SEEN Normal NONE SEEN [facility] Comment on above: Performed By: #### U AMIC ####[facility] Qhbihkuesd378262 [address] [place], [place] [address]Dr. Chrissy Freddie AMYLASEon 10-22-2022 Amylase [Catalytic activity/Vol] 28 U/L Normal 25-[address] [facility] Comment on above: Performed By: #### L IPA, CMP, TERRENCE ####[facility] Qadqvcopzd116162 [address] [place], [place] [address]Dr. Chrissy Freddie CBC AUTO DIFFon 10-22-2022 BASO # 0.0 103/ul Normal 0.0-0.[address] [facility] Comment on above: Performed By: #### C BC ####[facility] Hzawcmmmwf431462 [address] [place], [place] [address]Dr. Tishrowan Frazier Basophils/100 WBC (Bld) 0.2 % Normal 0.2-2.[address] [facility] Comment on above: Performed By: #### C BC ####[facility] Dvwyybehdx526[address] [place], [place] [address]Dr. Chrissy Frazier EO # 0.0 103/ul Normal 0.0-0.[address] [facility] Comment on above: Performed By: #### C BC ####[facility] Dlwuejkrbk7112[address] [place], [place] [address]Dr. Chrissy Frazier Eosinophils/100 WBC (Bld) 0.1 % Critically low 0.9-7.[address] [facility] Comment on above: Performed By: #### C BC ####[facility] Pueksjfyvu336[address] [place], [place] [address]Dr. Chrissy Frazier Erythrocyte distribution width (RBC) [Ratio] 14.4 % Normal 11.0-15.[address] [facility] Comment on above: Performed By: #### C BC ####[facility] Ulkodnzqfm3555[address] [place], [place] [address]Dr. Chrissy Frazier Hematocrit (Bld) [Volume fraction] 45.2 % Normal 42.0-54.0 [facility] Comment on above: Performed By: #### C BC ####[facility] Cdhnqdvdcc484462 [address] [place], [place] [address]Dr. Chrissy Frazier Hemoglobin (Bld) [Mass/Vol] 15.4 g/dL Normal 14.0-18.[address] [facility] Comment on above: Performed By: #### C BC ####[facility] Cbamzapznq312062 [address] [place], [place] [address]Dr. Tishrowan Freddie IG # 0.07 10e3/ul Critically high 0.00-0.03 [facility] Comment on above: Performed By: #### C BC ####[facility] Jmiokthrji380[address] [place], [place] [address]Dr. Chrissy Frazier IG % 0.4 % Normal 0.0-0.[address] [facility] Comment on above: Performed By: #### C BC ####[facility] Kzlvrsvvrf827462 [address] [place], [place] [address]Dr. Chrissy Frazier LYMPH # 2.0 103/ul Normal 1.2-3.[address] [facility] Comment on above: Performed By: #### C BC ####[facility] Vyoecljmaf6314[address] [place], [place] [address]DrNancy Frazier Lymphocytes/100 WBC (Bld) 12.2 % Critically low 20.5-60.[address] [facility] Comment on above: Performed By: #### C BC ####[facility] Vvlohqhwae4334 [place] [address]DrNancy Frazier MANUAL DIFF REQ NO Normal [facility] Comment on above: Performed By: #### C BC ####[facility] Tsxhqoxwiz4756 [place] [address]DrNancy Frazier MCH (RBC) [Entitic mass] 28.3 pg Normal 25.9-34.[address] [facility] Comment on above: Performed By: #### C BC ####[facility] Jegwrnhbmn7467[address] [place], [place] [address]DrNancy Frazier MCHC (RBC) [Mass/Vol] 34.1 g/dL Normal 29.9-35.[address] [facility] Comment on above: Performed By: #### C BC ####[facility] Vjbwczsamq665[address] [place], [place] [address]DrNancy Frazier MCV (RBC) [Entitic vol] 82.9 fL Normal 80.0-94.[address] [facility] Comment on above: Performed By: #### C BC ####[facility] Okpochuqan8960[address] [place], [place] [address]DrNancy Frazier MONO # 0.3 103/ul Normal 0.3-0.[address] [facility] Comment on above: Performed By: #### C BC ####[facility] Rjxlebciht7589[address] [place], [place] [address]DrNancy Frazier Monocytes/100 WBC (Bld) 2.0 % Normal 1.7-12.[address] [facility] Comment on above: Performed By: #### C BC ####[facility] Dcezpsrsor2618[address] [place], [place] [address]DrNancy Frazier NEUT # 14.0 103/ul Critically high 1.4-6.5 [facility] Comment on above: Performed By: #### C BC ####[facility] Ukmilgkxis1624[address] [place], [place] [address]DrNancy Frazier Neutrophils/100 WBC (Bld) 85.1 % Critically high 43.0-75.[address] [facility] Comment on above: Performed By: #### C BC ####[facility] Dhwzjthsqb9122 [place] [address]Dr. Chrissy Frazier Platelet mean volume (Bld) [Entitic vol] 10.6 fL Normal 9.5-13.[address] [facility] Comment on above: Performed By: #### C BC ####[facility] Kmxvfyodbi2099 [place] [address]Dr. Chrissy Frazier PLT 411 103/ul Normal 150-[address] [facility] Comment on above: Performed By: #### C BC ####[facility] Insfxcdqfg0232[address] [place], [place] [address]Dr. Chrissy Frazier RBC 5.45 106/ul Normal 4.70-6.[address] [facility] Comment on above: Performed By: #### C BC ####[facility] Lxsxmjitjg626262 [address] [place], [place] [address]DrNancy Chrissy Frazier WBC 16.5 103/ul Critically high 4.0-11.0 [facility] Comment on above: Performed By: #### C BC ####[facility] Svgqnmfgpe960[address] [place], [place] [address]DrNancy Chrissy Frazier LIPASEon 10-22-2022 Lipase [Catalytic activity/Vol] 57.0 U/L Critically low 73.0-393.0 [facility] Comment on above: Performed By: #### L IPA CMP, TERRENCE ####[facility] Swtdqlwtdv9161 [place] [address]DrNancy Tishrowan Frazier PROF 14(COMP METB)on 022 Albumin [Mass/Vol] 4.2 g/dL Normal 3.4-5.0 [facility] Comment on above: Performed By: #### L IPA CMP, TERRENCE ####[facility] Ogrbczlofi3513 [place] [address]DrNancy Chrissy Freddie Albumin/Globulin [Mass ratio] 1.0 {ratio} Normal [facility] Comment on above: Performed By: #### L IPA CMP, TERRENCE ####[facility] Kyoiehhfvb8248 [place] [address]Dr. Chrissy Frazier ALP [Catalytic activity/Vol] 92 U/L Normal 46-[address] [facility] Comment on above: Performed By: #### L IPA, CMP, TERRENCE ####[facility] Qdqjhwtnqi5165 [place] [address]Dr. Chrissy Frazier ALT [Catalytic activity/Vol] 26 U/L Normal 16-[address] [facility] Comment on above: Performed By: #### L IPA, CMP, TERRENCE ####[facility] Vefwblggpb9514 [place] [address]Dr. Chrissy Frazier Anion gap [Moles/Vol] 19.5 mmol/L Normal [facility] Comment on above: Performed By: #### L IPA, CMP, TERRENCE ####[facility] Qmpwvhgvek937[address] [place], [place] [address]Dr. Chrissy Frazier AST [Catalytic activity/Vol] 19 U/L Normal 15-37 [facility] Comment on above: Performed By: #### L IPA, CMP, TERRENCE ####[facility] Uzkqciktut100[address] [place], [place] [address]Dr. Chrissy Frazier Bilirubin [Mass/Vol] 0.7 mg/dL Normal 0.2-1.0 [facility] Comment on above: Performed By: #### L IPA, CMP, TERRENCE ####[facility] Ufrypzcfwc6979[address] [place], [place] [address]Dr. Chrissy Frazier Calcium [Mass/Vol] 9.6 mg/dL Normal 8.5-10.1 [facility] Comment on above: Performed By: #### L IPA, CMP, TERRENCE ####[facility] Jjgfqnwcqc2344 [place] [address]Dr. Chrissy Frazier Chloride [Moles/Vol] 102 mmol/L Normal 98-107 [facility] Comment on above: Performed By: #### L IPA, CMP, TERRENCE ####[facility] Ofrzgyyqcp6496 [place] [address]Dr. Chrissy Frazier CO2 [Moles/Vol] 19.1 mmol/L Critically low 21.0-32.0 [facility] Comment on above: Performed By: #### L IPA, CMP, TERRENCE ####[facility] Tglwngbpbr1597 [place] [address]Dr. Chrissy Freddie Creatinine [Mass/Vol] 1.47 mg/dL Critically high 0.70-1.30 [facility] Comment on above: Performed By: #### L IPA, CMP, TERRENCE ####[facility] Bjckbbapao9632 [place] [address]Dr. Tishrowan Freddie EGFR-AF MOLDOVAN >60 Normal >=60 [facility] Comment on above: Performed By: #### L IPA, CMP, TERRENCE ####[facility] Qpkmtmxdbq4450[address] [place], [place] [address]Dr. Chrissy Frazier EGFR-NON AF MOLDOVAN 56 mL/min/1.73m2 Critically low >=60 [facility] Comment on above: Performed By: #### L IPA, CMP, TERRENCE ####[facility] Xxbzgkhdhs9899[address] [place], [place] [address]Dr. Chrissy Frazier Globulin (S) [Mass/Vol] 4.3 g/dL Normal [facility] Comment on above: Performed By: #### L IPA CMP, TERRENCE ####[facility] Jzvacazkrd0600[address] [place], [place] [address]Dr. Chrissy Frazier Glucose [Mass/Vol] 189 mg/dL Critically high 74-106 [facility] Comment on above: Performed By: #### L IPA, CMP, TERRENCE ####[facility] Smgwrinzre733[address] [place], [place] [address]Dr. Chrissy Frazier Potassium [Moles/Vol] 4.6 mmol/L Normal 3.5-5.1 [facility] Comment on above: Performed By: #### L IPA, CMP, TERRENCE ####[facility] Eormdbpphi3587[address] [place], [place] [address]Dr. Chrissy Frazier Protein [Mass/Vol] 8.5 g/dL Critically high 6.4-8.2 [facility] Comment on above: Performed By: #### L IPA, CMP, TERRENCE ####[facility] Jljkorlsbz[address] [place], [place] [address]Dr. Chrissy Frazier Sodium [Moles/Vol] 136 mmol/L Normal 136-145 [facility] Comment on above: Performed By: #### L IPA CMP, TERRENCE ####[facility] Bnujzcailu0345 [place] [address]Dr. Chrissy Frazier Urea nitrogen [Mass/Vol] 16.0 mg/dL Normal 7.0-18.0 [facility] Comment on above: Performed By: #### L IPA CMP, TERRENCE ####[facility] Foiiptbyvj915[address] [place], [place] [address]Dr. Chrissy Frazier Urea nitrogen/Creatinine [Mass ratio] 10.9 mg/mg Normal [facility] Comment on above: Performed By: #### L IPA CMP, TERRENCE ####[facility] Dhmceyqflc723[address] [place], [place] [address]Dr. Chrissy Freddie AMYLASEon 09-03-2022 Amylase [Catalytic activity/Vol] 25 U/L Normal 25-115 [facility] Comment on above: Performed By: #### L IPA TERRENCE, CMP ####[facility] Rsmlroxplt0077[address] [place], [place] [address]Dr. Chrissy Freddie CBC AUTO DIFFon 09-03-2022 BASO # 0.0 103/ul Normal 0.0-0.1 [facility] Comment on above: Performed By: #### C BC ####[facility] Oymwzuzrip025[address] [place], [place] [address]Dr. Chrissy Freddie Basophils/100 WBC (Bld) 0.1 % Critically low 0.2-2.[address] [facility] Comment on above: Performed By: #### C BC ####[facility] Leszaxyfpz209462 [address] [place], [place] [address]Dr. Tishrowan Frazier EO # 0.0 103/ul Normal 0.0-0.[address] [facility] Comment on above: Performed By: #### C BC ####[facility] Phcqpqmygc9880[address] [place], [place] [address]Dr. Tishrowan Freddie Eosinophils/100 WBC (Bld) 0.1 % Critically low 0.9-7.[address] [facility] Comment on above: Performed By: #### C BC ####[facility] Tspugfhkkn7334 [place] [address]Dr. Chrissy Frazier Erythrocyte distribution width (RBC) [Ratio] 14.0 % Normal 11.0-15.0 [facility] Comment on above: Performed By: #### C BC ####[facility] Ehfrkbpziv304[address] [place], [place] [address]Dr. Chrissy Frazier Hematocrit (Bld) [Volume fraction] 42.5 % Normal 42.0-54.0 [facility] Comment on above: Performed By: #### C BC ####[facility] Wrjnesfxsy9849[address] [place], [place] [address]Dr. Chrissy Frazier Hemoglobin (Bld) [Mass/Vol] 14.1 g/dL Normal 14.0-18.0 [facility] Comment on above: Performed By: #### C BC ####[facility] Lzzeazhxyg2760[address] [place], [place] [address]Dr. Chrissy Frazier IG # 0.06 10e3/ul Critically high 0.00-0.03 [facility] Comment on above: Performed By: #### C BC ####[facility] Jsgqonulaf4528[address] [place], [place] [address]Dr. Chrissy Frazier IG % 0.4 % Normal 0.0-0.5 [facility] Comment on above: Performed By: #### C BC ####[facility] Alcevsjrst709[address] [place], [place] [address]Dr. Chrissy Frazier LYMPH # 2.5 103/ul Normal 1.2-3.[address] [facility] Comment on above: Performed By: #### C BC ####[facility] Wlxtwqgaqt3238[address] [place], [place] [address]Dr. Chrissy Frazier Lymphocytes/100 WBC (Bld) 16.3 % Critically low 20.5-60.0 [facility] Comment on above: Performed By: #### C BC ####[facility] Yxlzlpkyrq3885[address] [place], [place] [address]Dr. Chrissy Frazier MANUAL DIFF REQ NO Normal [facility] Comment on above: Performed By: #### C BC ####[facility] Geztraxfev8434 [place] [id number]. Chrissy Freddie MCH (RBC) [Entitic mass] 28.1 pg Normal 25.9-34.0 [facility] Comment on above: Performed By: #### C BC ####[facility] Odbuqyuxkr9015 [place] [id number]. Chrissy Freddie MCHC (RBC) [Mass/Vol] 33.2 g/dL Normal 29.9-35.2 [facility] Comment on above: Performed By: #### C BC ####[facility] Afracjvfjv5171 [place] [address]Dr. Chrissy Freddie MCV (RBC) [Entitic vol] 84.8 fL Normal 80.0-94.[address] [facility] Comment on above: Performed By: #### C BC ####[facility] Eyunayfteo7212[address] [place], [place] [address]DrNancy Frazier MONO # 1.1 103/ul Critically high 0.3-0.8 [facility] Comment on above: Performed By: #### C BC ####[facility] Axzxeuuskw39[address] [place], [place] [address]Dr. Tishrowan Frazier Monocytes/100 WBC (Bld) 7.4 % Normal 1.7-12.[address] [facility] Comment on above: Performed By: #### C BC ####[facility] Aerbqccjgk969[address] [place], [place] [address]Dr. Chrissy Frazier NEUT # 11.5 103/ul Critically high 1.4-6.5 [facility] Comment on above: Performed By: #### C BC ####[facility] Cjwmnvfdk[address] [place], [place] [id number] Frazier Neutrophils/100 WBC (Bld) 75.7 % Critically high 43.0-75.[address] [facility] Comment on above: Performed By: #### C BC ####[facility] Zpjkmqksqn4941 [place] [address]DrNancy Frazier Platelet mean volume (Bld) [Entitic vol] 10.6 fL Normal 9.5-13.[address] [facility] Comment on above: Performed By: #### C BC ####[facility] Znuepjrtlt0983 [place] [address]Dr. Chrissy Frazier PLT 310 103/ul Normal 150-[address] [facility] Comment on above: Performed By: #### C BC ####[facility] Orvrnkqkwt2718 [place] [address]Dr. Chrissy Frazier RBC 5.01 106/ul Normal 4.70-6.10 [facility] Comment on above: Performed By: #### C BC ####[facility] Ysugzjxpja6510 [place] [address]Dr. Chrissy Frazier WBC 15.2 103/ul Critically high 4.0-11.0 [facility] Comment on above: Performed By: #### C BC ####[facility] Uoupljtfgx[address] [place], [place] [address]Dr. Chrissy Frazier LIPASEon 09-03-2022 Lipase [Catalytic activity/Vol] 46.0 U/L Critically low 73.0-393.0 [facility] Comment on above: Performed By: #### L TERRENCE VICTORIA, CMP ####[facility] Qvsdlqymbt617[address] [place], [place] [address]Dr. Chrissy Frazier PROF 14(COMP METB)on 022 Albumin [Mass/Vol] 3.7 g/dL Normal 3.4-5.0 [facility] Comment on above: Performed By: #### L TERRENCE VICTORIA, CMP ####[facility] Mfyciiptme7034 [place] [address]Dr. Chrissy Frazier Albumin/Globulin [Mass ratio] 1.0 {ratio} Normal [facility] Comment on above: Performed By: #### L TERRENCE VICTORIA, CMP ####[facility] Rsaljjifns69[address] [place], [place] [address]Dr. Chrissy Frazier ALP [Catalytic activity/Vol] 65 U/L Normal 46-[address] [facility] Comment on above: Performed By: #### L TERRENCE VICTORIA, CMP ####[facility] Ismnwmejji[address] [place], [place] [address]Dr. Chrissy Frazier ALT [Catalytic activity/Vol] 42 U/L Normal 16-[address] [facility] Comment on above: Performed By: #### L TERRENCE VICTORIA, CMP ####[facility] Waxutpjwxf7607 [place] [address]Dr. Chrissy Frazier Anion gap [Moles/Vol] 14.4 mmol/L Normal [facility] Comment on above: Performed By: #### L TERRENCE VICTORIA, CMP ####[facility] Rjkbnavdss6019 [place] [address]Dr. Chrissy Frazier AST [Catalytic activity/Vol] 16 U/L Normal 15-37 [facility] Comment on above: Performed By: #### L TERRENCE VICTORIA, CMP ####[facility] Rheodgkhxc1117 [place] [address]Dr. Chrissy Frazier Bilirubin [Mass/Vol] 0.4 mg/dL Normal 0.2-1.0 [facility] Comment on above: Performed By: #### L TERRENCE VICTORIA, CMP ####[facility] Kwzqurwzza7135 [place] [address]Dr. Chrissy Frazier Calcium [Mass/Vol] 8.7 mg/dL Normal 8.5-10.1 [facility] Comment on above: Performed By: #### L TERRENCE VICTORIA, CMP ####[facility] Pedyhsevgh7518 [place] [address]Dr. Chrissy Frazier Chloride [Moles/Vol] 105 mmol/L Normal 98-[address] [facility] Comment on above: Performed By: #### L TERRENCE VICTORIA, CMP ####[facility] Ttnqarlaur7131 [place] [address]Dr. Chrissy Frazier CO2 [Moles/Vol] 22.6 mmol/L Normal 21.0-32.0 [facility] Comment on above: Performed By: #### L TERERNCE VICTORIA, CMP ####[facility] Rkicooqvby3423 [place] [address]Dr. Chrissy Frazier Creatinine [Mass/Vol] 1.11 mg/dL Normal 0.70-1.[address] [facility] Comment on above: Performed By: #### L TERRENCE VICTORIA, CMP ####[facility] Wdojqjpfrq5130 [place] [id number]. Chrissy Frazier EGFR-AF MOLDOVAN >60 Normal >=60 [facility] Comment on above: Performed By: #### L TERRENCE VICTORIA, CMP ####[facility] Kqupbbvzto9799 [place] [id number]. Chrissy Frazier EGFR-NON AF MOLDOVAN >60 Normal >=60 [facility] Comment on above: Performed By: #### L TERRENCE VICTORIA, CMP ####[facility] Nagcxfnhmh1658 [place] [address]Dr. Chrissy Frazier Globulin (S) [Mass/Vol] 3.7 g/dL Normal [facility] Comment on above: Performed By: #### L TERRENCE VICTORIA, CMP ####[facility] Elsmalluka7389 [place] [address]Dr. Chrissy Frazier Glucose [Mass/Vol] 121 mg/dL Critically high 74-106 [facility] Comment on above: Performed By: #### L TERRENCE VICTORIA, CMP ####[facility] Nklnxiumqa4949 [place] [address]Dr. Chrissy Frazier Potassium [Moles/Vol] 4.0 mmol/L Normal 3.5-5.1 [facility] Comment on above: Performed By: #### L TERRENCE VICTORIA, CMP ####[facility] Hvnqpkordp[address] [place], [place] [address]Dr. Chrissy Frazier Protein [Mass/Vol] 7.4 g/dL Normal 6.4-8.2 [facility] Comment on above: Performed By: #### L TERRENCE VICTORIA, CMP ####[facility] Sejeqhrdjw7695 [place] [address]Dr. Chrissy Frazier Sodium [Moles/Vol] 138 mmol/L Normal 136-145 [facility] Comment on above: Performed By: #### L TERRENCE VICTORIA, CMP ####[facility] Rcygesmvyw7215 [place] [address]Dr. Chrissy Frazier Urea nitrogen [Mass/Vol] 6.0 mg/dL Critically low 7.0-18.0 [facility] Comment on above: Performed By: #### L IPA, TERRENCE, CMP ####[facility] Isnnnlgvrc701[address] [place], [place] [address]Dr. Chrissy Frazier Urea nitrogen/Creatinine [Mass ratio] 5.4 mg/mg Normal [facility] Comment on above: Performed By: #### L IPA, TERRENCE, CMP ####[facility] Pumrmpbhrj[address] [place], [place] [address]Dr. Chrissy Frazier AMYLASEon 09-02-2022 Amylase [Catalytic activity/Vol] 29 U/L Normal 25-[address] [facility] Comment on above: Performed By: #### A MY, CMP, LIPA ####[facility] Chzrnwhxne22[address] [place], [place] [address]Dr. Chrissy Frazier CBC AUTO DIFFon 09-02-2022 BASO # 0.1 103/ul Normal 0.0-0.[address] [facility] Comment on above: Performed By: #### C BC ####[facility] Tllopszfav1733[address] [place], [place] [address]Dr. Chrissy Frazier Basophils/100 WBC (Bld) 0.4 % Normal 0.2-2.[address] [facility] Comment on above: Performed By: #### C BC ####[facility] Ooxmtwtouv[address] [place], [place] [address]Dr. Chrissy Frazier EO # 0.1 103/ul Normal 0.0-0.[address] [facility] Comment on above: Performed By: #### C BC ####[facility] Fabkueanxs610[address] [place], [place] [address]Dr. Chrissy Frazier Eosinophils/100 WBC (Bld) 0.7 % Critically low 0.9-7.[address] [facility] Comment on above: Performed By: #### C BC ####[facility] Jazjpuwlxr8[address] [place], [place] [address]Dr. Chrissy Frazier Erythrocyte distribution width (RBC) [Ratio] 13.7 % Normal 11.0-15.[address] [facility] Comment on above: Performed By: #### C BC ####[facility] Cxihbxcjdc1581 [place] [address]Dr. Chrissy Freddie Hematocrit (Bld) [Volume fraction] 48.3 % Normal 42.0-54.[address] [facility] Comment on above: Performed By: #### C BC ####[facility] Ttbsfcwjum6252 [place] [address]Dr. Chrissy Frazier Hemoglobin (Bld) [Mass/Vol] 16.0 g/dL Normal 14.0-18.[address] [facility] Comment on above: Performed By: #### C BC ####[facility] Jphrtqdjba3894 [place] [address]Dr. Chrissy Frazier IG # 0.09 10e3/ul Critically high 0.00-0.03 [facility] Comment on above: Performed By: #### C BC ####[facility] Xjtqepsghr[address] [place], [place] [address]Dr. Chrissy Frazier IG % 0.5 % Normal 0.0-0.[address] [facility] Comment on above: Performed By: #### C BC ####[facility] Eyekneophr737[address] [place], [place] [address]Dr. Chrissy Frazier LYMPH # 3.7 103/ul Normal 1.2-3.[address] [facility] Comment on above: Performed By: #### C BC ####[facility] Mehdgghtaq4003 [place] [address]Dr. Chrissy Frazier Lymphocytes/100 WBC (Bld) 21.5 % Normal 20.5-60.[address] [facility] Comment on above: Performed By: #### C BC ####[facility] Zahbedjymn3696 [place] [address]Dr. Chrissy Frazier MANUAL DIFF REQ NO Normal [facility] Comment on above: Performed By: #### C BC ####[facility] Jmyejgzmys[address] [place], [place] [address]Dr. Chrissy Frazier MCH (RBC) [Entitic mass] 28.1 pg Normal 25.9-34.[address] [facility] Comment on above: Performed By: #### C BC ####[facility] Dwswfceely410[address] [place], [place] [address]Dr. Chrissy Frazier MCHC (RBC) [Mass/Vol] 33.1 g/dL Normal 29.9-35.[address] [facility] Comment on above: Performed By: #### C BC ####[facility] Oodowwqlhp5125 [place] [id number]. Chrissy Frazier MCV (RBC) [Entitic vol] 84.7 fL Normal 80.0-94.[address] [facility] Comment on above: Performed By: #### C BC ####[facility] Wgodtxaeny7629 [place] [address]Dr. Chrissy Frazier MONO # 0.7 103/ul Normal 0.3-0.[address] [facility] Comment on above: Performed By: #### C BC ####[facility] Pxgnmqsauw7685 [place] [address]Dr. Chrissy Frazier Monocytes/100 WBC (Bld) 4.2 % Normal 1.7-12.[address] [facility] Comment on above: Performed By: #### C BC ####[facility] Qdoftjljuq5395 [place] [address]Dr. Chrissy Frazier NEUT # 12.4 103/ul Critically high 1.4-6.5 [facility] Comment on above: Performed By: #### C BC ####[facility] Zrrohyjkqw2002 [place] [address]Dr. Chrissy Frazier Neutrophils/100 WBC (Bld) 72.7 % Normal 43.0-75.[address] [facility] Comment on above: Performed By: #### C BC ####[facility] Qzhnnsnkaf8107 [place] [address]Dr. Chrissy Frazier Platelet mean volume (Bld) [Entitic vol] 10.9 fL Normal 9.5-13.[address] [facility] Comment on above: Performed By: #### C BC ####[facility] Esbmnmgkbr8[address] [place], [place] [address]Dr. Chrissy Frazier PLT 386 103/ul Normal 150-[address] [facility] Comment on above: Performed By: #### C BC ####[facility] Pislmsylxe7143 [place] [address]Dr. Chrissy Frazier RBC 5.70 106/ul Normal 4.70-6.[address] [facility] Comment on above: Performed By: #### C BC ####[facility] Exdktxjesz9243 [place] [id number]. Chrissy Frazier WBC 17.0 103/ul Critically high 4.0-11.0 [facility] Comment on above: Performed By: #### C BC ####[facility] Odthyqsoct3839 [place] [id number]. Chrissy Frazier Covid-19 PCR (CVDTBH)on 08-21 SARS-CoV-2 (COVID-19) RNA RHIANNON+probe Ql (Unsp spec) Not detected Normal NOT DETECTED [facility] Comment on above: Result Comment: When [...] for this test is supported by the [place] [employer] and Human Service's declaration that [...] be used). Performed By: #### C VDTBH ####[facility] Soxjpkadel6661 [place] [id number]. Chrissy Frazier LACTATE/LACTIC ACIDon 2021 Lactate [Moles/Vol] 7.1 mmol/L Critically high 0.4-1.[address] [facility] Comment on above: Performed By: #### L ACT ####[facility] Vkfdaskkzu7933 [place] [address]Dr. Chrissy Frazier Lactate [Moles/Vol] 8.6 mmol/L Critically high 0.4-1.9 [facility] Comment on above: Performed By: #### L ACT ####[facility] Kiybzteffz2097 [place] [address]Dr. Chrissy Frazier LIPASEon 09-02-2022 Lipase [Catalytic activity/Vol] 60.0 U/L Critically low 73.0-393.0 [facility] Comment on above: Performed By: #### A MY, CMP, LIPA ####[facility] Vaztowznep8053 [place] [address]Dr. Chrissy Frazier POINT OF CARE GLUCOSEon 08-21 Glucose [Mass/Vol] 140 mg/dL Critically high 74-106 [facility] Comment on above: Performed By: #### P OCGLUC ####[facility] Govbbusypk[address] [place], [place] [address]Dr. Chrissy Frazier PROF 14(COMP METB)on 022 Albumin [Mass/Vol] 4.3 g/dL Normal 3.4-5.0 [facility] Comment on above: Performed By: #### A MY, CMP, LIPA ####[facility] Wldkgdicii4714 [place] [address]Dr. Chrissy Frazier Albumin/Globulin [Mass ratio] 1.0 {ratio} Normal [facility] Comment on above: Performed By: #### A MY, CMP, LIPA ####[facility] Ekadcpyqrc4074 [place] [address]Dr. Chrissy Frazier ALP [Catalytic activity/Vol] 82 U/L Normal 46-[address] [facility] Comment on above: Performed By: #### A MY, CMP, LIPA ####[facility] Bdryrmlfae5570 [place] [address]Dr. Chrissy Frazier ALT [Catalytic activity/Vol] 48 U/L Normal 16-63 [facility] Comment on above: Performed By: #### A MY, CMP, LIPA ####[facility] Lxflmptyht1460 [place] [address]Dr. Chrissy Frazier Anion gap [Moles/Vol] 25.3 mmol/L Normal [facility] Comment on above: Performed By: #### A MY, CMP, LIPA ####[facility] Yamzdhknzi9820 [place] [address]Dr. Chrissy Frazier AST [Catalytic activity/Vol] 33 U/L Normal 15-[address] [facility] Comment on above: Performed By: #### A MY, CMP, LIPA ####[facility] Svwyxsxbyf7587 [place] [address]Dr. Chrissy Frazier Bilirubin [Mass/Vol] 0.7 mg/dL Normal 0.2-1.0 [facility] Comment on above: Performed By: #### A MY, CMP, LIPA ####[facility] Xolovnwsnj4321 [place] [address]Dr. Chrissy Frazier Calcium [Mass/Vol] 9.5 mg/dL Normal 8.5-10.1 [facility] Comment on above: Performed By: #### A MY, CMP, LIPA ####[facility] Swozuwttqd676[address] [place], [place] [address]Dr. Chrissy Frazier Chloride [Moles/Vol] 100 mmol/L Normal 98-[address] [facility] Comment on above: Performed By: #### A MY, CMP, LIPA ####[facility] Dflfvggdjo3537 [place] [address]Dr. Chrissy Frazier CO2 [Moles/Vol] 14.2 mmol/L Critically low 21.0-32.[address] [facility] Comment on above: Performed By: #### A MY, CMP, LIPA ####[facility] Lbudtfvkfy1178 [place] [address]Dr. Chrissy Frazier Creatinine [Mass/Vol] 1.70 mg/dL Critically high 0.70-1.[address] [facility] Comment on above: Performed By: #### A MY, CMP, LIPA ####[facility] Oqfpeitdmu4319 [place] [address]Dr. Chrissy Frazier EGFR-AF MOLDOVAN 57 mL/min/1.73m2 Critically low >=[address] [facility] Comment on above: Performed By: #### A MY, CMP, LIPA ####[facility] Ndsermtuew9409 [place] [address]Dr. Chrissy Frazier EGFR-NON AF MOLDOVAN 47 mL/min/1.73m2 Critically low >=60 [facility] Comment on above: Performed By: #### A MY, CMP, LIPA ####[facility] Phuospchuy3530 [place] [address]Dr. Chrissy Frazier Globulin (S) [Mass/Vol] 4.2 g/dL Normal [facility] Comment on above: Performed By: #### A MY, CMP, LIPA ####[facility] Hlzejvsotx3015 [place] [address]Dr. Chrissy Frazier Glucose [Mass/Vol] 212 mg/dL Critically high 74-106 [facility] Comment on above: Performed By: #### A MY, CMP, LIPA ####[facility] Lowwjzpfta4[address] [place], [place] [address]Dr. Chrissy Frazier Potassium [Moles/Vol] 3.5 mmol/L Normal 3.5-5.1 [facility] Comment on above: Performed By: #### A MY, CMP, LIPA ####[facility] Abkgysnwez6914[address] [place], [place] [address]Dr. Chrissy Frazier Protein [Mass/Vol] 8.5 g/dL Critically high 6.4-8.2 [facility] Comment on above: Performed By: #### A MY, CMP, LIPA ####[facility] Sjotwpackc0814 [place] [address]Dr. Chrissy Frazier Sodium [Moles/Vol] 136 mmol/L Normal 136-145 [facility] Comment on above: Performed By: #### A MY, CMP, LIPA ####[facility] Zqhjezhogk4525[address] [place], [place] [address]Dr. Chrissy Frazier Urea nitrogen [Mass/Vol] 9.0 mg/dL Normal 7.0-18.0 [facility] Comment on above: Performed By: #### A MY, CMP, LIPA ####[facility] Cmwbskiqec0850 [place] [address]Dr. Chrissy Frazier Urea nitrogen/Creatinine [Mass ratio] 5.3 mg/mg Normal [facility] Comment on above: Performed By: #### A MY, CMP, LIPA ####[facility] Nzdewkqrya6095 [place] [address]Dr. Chrissy Frazier AMYLASEon 07-07-2022 Amylase [Catalytic activity/Vol] 33 U/L Normal 25-[address] [facility] Comment on above: Performed By: #### C MP, TERRENCE, BNP, LIPA ####[facility] Qaeyhzsbtq247[address] [place], [place] [address]Dr. Chrissy Frazier BNPon 07-07-2022 Natriuretic peptide B (Bld) [Mass/Vol] 29.0 pg/mL Normal <=450.[address] [facility] Comment on above: Performed By: #### C MP, TERRENCE, BNP, LIPA ####[facility] Emjepvohbs6517[address] [place], [place] [address]Dr. Chrissy Frazier CBC AUTO DIFFon 07-07-2022 BASO # 0.0 103/ul Normal 0.0-0.1 [facility] Comment on above: Performed By: #### C BC ####[facility] Tewjbyksda34[address] [place], [place] [address]Dr. Chrissy Frazier Basophils/100 WBC (Bld) 0.4 % Normal 0.2-2.[address] [facility] Comment on above: Performed By: #### C BC ####[facility] Cqnvhlaokc648[address] [place], [place] [address]Dr. Chrissy Frazier EO # 0.3 103/ul Normal 0.0-0.[address] [facility] Comment on above: Performed By: #### C BC ####[facility] Lxbagrpdzt4220[address] [place], [place] [address]Dr. Chrissy Frazier Eosinophils/100 WBC (Bld) 3.0 % Normal 0.9-7.[address] [facility] Comment on above: Performed By: #### C BC ####[facility] Gerqexcosa6540[address] [place], [place] [address]Dr. Chrissy Frazier Erythrocyte distribution width (RBC) [Ratio] 14.0 % Normal 11.0-15.[address] [facility] Comment on above: Performed By: #### C BC ####[facility] Qksbzlkebe9704 [place] [address]DrNancy Frazier Hematocrit (Bld) [Volume fraction] 42.8 % Normal 42.0-54.0 [facility] Comment on above: Performed By: #### C BC ####[facility] Gfckrwasiy2819 [place] [address]DrNancy Frazier Hemoglobin (Bld) [Mass/Vol] 14.3 g/dL Normal 14.0-18.[address] [facility] Comment on above: Result Comment: IV F LUIDS RUNNING Performed By: #### C BC ####[facility] Hbssrdcfwo4726[address] [place], [place] [address]DrNancy Frazier IG # 0.05 10e3/ul Critically high 0.00-0.03 [facility] Comment on above: Performed By: #### C BC ####[facility] Icnqwupsor69[address] [place], [place] [address]DrNancy Frazier IG % 0.5 % Normal 0.0-0.5 [facility] Comment on above: Performed By: #### C BC ####[facility] Jihnrgmptm[address] [place], [place] [address]DrNancy Frazier LYMPH # 2.4 103/ul Normal 1.2-3.[address] [facility] Comment on above: Performed By: #### C BC ####[facility] Dyeqmuljal105[address] [place], [place] [address]DrNancy Frazier Lymphocytes/100 WBC (Bld) 25.5 % Normal 20.5-60.[address] [facility] Comment on above: Performed By: #### C BC ####[facility] Gkteqowxzg7925[address] [place], [place] [address]DrNancy Frazier MANUAL DIFF REQ NO Normal [facility] Comment on above: Performed By: #### C BC ####[facility] Bnmevcpodf0124 [place] [address]DrNancy Frazier MCH (RBC) [Entitic mass] 28.5 pg Normal 25.9-34.[address] [facility] Comment on above: Performed By: #### C BC ####[facility] Wsiogysqen8761 [place] [id number]. Chrissy Freddie MCHC (RBC) [Mass/Vol] 33.4 g/dL Normal 29.9-35.[address] [facility] Comment on above: Performed By: #### C BC ####[facility] Zjtktpzpto7418 [place] [id number] Frazier MCV (RBC) [Entitic vol] 85.3 fL Normal 80.0-94.0 [facility] Comment on above: Performed By: #### C BC ####[facility] Vvvcjigacl[address] [place], [place] [address]DrNancy Frazier MONO # 0.7 103/ul Normal 0.3-0.[address] [facility] Comment on above: Performed By: #### C BC ####[facility] Odyfvnaqxl635[address] [place], [place] [address]Dr. Chrissy Frazier Monocytes/100 WBC (Bld) 7.8 % Normal 1.7-12.[address] [facility] Comment on above: Performed By: #### C BC ####[facility] Vifbxdyups8916[address] [place], [place] [address]Dr. Chrissy Frazier NEUT # 5.8 103/ul Normal 1.4-6.[address] [facility] Comment on above: Performed By: #### C BC ####[facility] Rbucwxyydk[address] [place], [place] [address]Dr. Chrissy Frazier Neutrophils/100 WBC (Bld) 62.8 % Normal 43.0-75.[address] [facility] Comment on above: Performed By: #### C BC ####[facility] Gvmqvtfplo[address] [place], [place] [address]DrNancy Frazier Platelet mean volume (Bld) [Entitic vol] 10.8 fL Normal 9.5-13.[address] [facility] Comment on above: Performed By: #### C BC ####[facility] Lyxdzhnwun40[address] [place], [place] [address]Dr. Chrissy Frazier PLT 310 103/ul Normal 150-[address] [facility] Comment on above: Performed By: #### C BC ####[facility] Lcmpssgxxu0373 [place] [id number]. Tishrowan Freddei RBC 5.02 106/ul Normal 4.70-6.[address] [facility] Comment on above: Performed By: #### C BC ####[facility] Nymgljddng3033 [place], [place] [address]Nm. Tishrowan Freddie WBC 9.3 103/ul Normal 4.0-11.[address] [facility] Comment on above: Performed By: #### C BC ####[facility] Vpndkjqgjc2250 [place] [id number]. Chrissy Frazier CULTURE URINEon 07-07-2022 CULTURE URINE Culture Observations: NO GROWTH. Normal [facility] Comment on above: Performed By: #### U RCX ####[facility] Jgfbomtiap4242 [place] [id number]. Chrissy Frazier DRUG SCREEN RAPID (URINE)on 07-07-2022 AMP Negative Normal NEGATIVE [facility] Comment on above: Performed By: #### D RUGRPD ####[facility] Xrrjecheia7290 [place] [id number]. Chrissy Frazier BAR Negative Normal NEGATIVE [facility] Comment on above: Performed By: #### D RUGRPD ####[facility] Lhtaiwnkma7156 [place] [id number]. Chrissy Frazier BUP Negative Normal NEGATIVE [facility] Comment on above: Performed By: #### D RUGRPD ####[facility] Iinvkvwwjj1706 [place] [id number]. Chrissy Frazier BZO Positive Abnormal NEGATIVE [facility] Comment on above: Performed By: #### D RUGRPD ####[facility] Fxvmescfsq7618 [place] [id number]. Chrissy Frazier LAUREN Negative Normal NEGATIVE [facility] Comment on above: Performed By: #### D RUGRPD ####[facility] Zjfhclumht1214 [place] [id number]. Chrissy Frazeir CUT-OFFS SEE BELOW Normal [facility] Comment on above: Result Comment: AMP (Amphetamine): 500ng/mL, BAR (Barbituates): 200 ng/mL, BZO (Benzodiazepines): 150 ng/mL, BUP (Buprenorphine): 10 ng/mL, LAUREN (Cocaine): 150 ng/mL, mAMP (Methamphetamine): 500 ng/mL, MTD (Methadone): 200 ng/mL, OPI (Opiates): 100 ng/mL, OXY (Oxycodone): 100 ng/mL, PCP (Phencyclidine): 25 ng/mL, PPX (Propoxyphene): 300 ng/mL, THC (Cannabinoids): 50 ng/mL, TCA (Trycyclic Antidepressants): 300 ng/mL Performed By: #### D RUGRPD ####[facility] [address]vayyhcsvg[address] [place], [place] [address]Dr. Chrissy Frazier DRUG CUT HEADER DRUG CLASS TEST SYSTEM CUT-OFF CONCENTRATIONS ARE FOLLOWS: Normal [facility] Comment on above: Performed By: #### D RUGRPD ####[facility] Ivowhyygnh[address] [place], [place] [address]Dr. Chrissy Frazier mAMP Negative Normal NEGATIVE [facility] Comment on above: Performed By: #### D RUGRPD ####[facility] Zhewtrnogz17[address] [place], [place] [address]Dr. Chrissy Frazier MTD Negative Normal NEGATIVE [facility] Comment on above: Performed By: #### D RUGRPD ####[facility] Nkcwfkrgti25[address] [place], [place] [address]Dr. Chrissy Frazier OPI Negative Normal NEGATIVE [facility] Comment on above: Performed By: #### D RUGRPD ####[facility] Hvbicktfnm27[address] [place], [place] [address]Dr. Chrissy Frazier OXY Negative Normal NEGATIVE [facility] Comment on above: Performed By: #### D RUGRPD ####[facility] Fzurmffouz244[address] [place], [place] [address]Dr. Chrissy Frazier PCP Negative Normal NEGATIVE [facility] Comment on above: Performed By: #### D RUGRPD ####[facility] Ixlspytvtk57[address] [place], [place] [address]Dr. Chrissy Frazier PPX Negative Normal NEGATIVE [facility] Comment on above: Performed By: #### D RUGRPD ####[facility] Pmrarmlawy[address] [place] [address]Dr. Chrissy Frazier TCA Positive Abnormal NEGATIVE [facility] Comment on above: Performed By: #### D RUGRPD ####[facility] Vdqgjgnfmy5204 [place] [address]Dr. Chrissy Frazier THC Positive Abnormal NEGATIVE [facility] Comment on above: Performed By: #### D RUGRPD ####[facility] Xctcpiketj0522 [place] [address]Dr. Chrissy Frazier LIPASEon 07-07-2022 Lipase [Catalytic activity/Vol] 118.0 U/L Normal 73.0-393.0 [facility] Comment on above: Performed By: #### L IPA ####[facility] Lfqbwzivtc465[address] [place], [place] [address]Dr. Chrissy Frazier Lipase [Catalytic activity/Vol] 114.0 U/L Normal 73.0-393.0 [facility] Comment on above: Performed By: #### C MP, TERRENCE, BNP, LIPA ####[facility] Vqtbfukmdb3758 [place] [address]Dr. Chrissy Frazier PROF 14(COMP METB)on 022 Albumin [Mass/Vol] 3.4 g/dL Normal 3.4-5.0 [facility] Comment on above: Performed By: #### C MP, TERRENCE, BNP, LIPA ####[facility] Sgxllkbdzu9940 [place] [address]Dr. Chrissy Frazier Albumin/Globulin [Mass ratio] 1.1 {ratio} Normal [facility] Comment on above: Performed By: #### C MP, TERRENCE, BNP, LIPA ####[facility] Bhnrulblkv6403 [place] [address]Dr. Chrissy Frazier ALP [Catalytic activity/Vol] 68 U/L Normal 46-[address] [facility] Comment on above: Performed By: #### C MP, TERRENCE, BNP, LIPA ####[facility] Pfpqujhoqf8903 [place] [address]Dr. Chrissy Frazier ALT [Catalytic activity/Vol] 93 U/L Critically high 16-63 [facility] Comment on above: Performed By: #### C MP, TERRENCE, BNP, LIPA ####[facility] Zdibeityrr6103 [place] [address]Dr. Chrissy Frazier Anion gap [Moles/Vol] 14.4 mmol/L Normal [facility] Comment on above: Performed By: #### C MP, TERRENCE, BNP, LIPA ####[facility] Jipwswotkn612[address] [place], [place] [address]Dr. Chrissy Frazier AST [Catalytic activity/Vol] 33 U/L Normal 15-[address] [facility] Comment on above: Performed By: #### C MP, TERRENCE, BNP, LIPA ####[facility] Mmkdnevzfi307[address] [place], [place] [address]Dr. Chrissy Frazier Bilirubin [Mass/Vol] 0.9 mg/dL Normal 0.2-1.0 [facility] Comment on above: Performed By: #### C MP, TERRENCE, BNP, LIPA ####[facility] Ftdwwvibgs022[address] [place], [place] [address]Dr. Chrissy Frazier Calcium [Mass/Vol] 8.2 mg/dL Critically low 8.5-10.[address] [facility] Comment on above: Performed By: #### C MP, TERRENCE, BNP, LIPA ####[facility] Lwjbwiorhd5557[address] [place], [place] [address]Dr. Chrissy Frazier Chloride [Moles/Vol] 103 mmol/L Normal 98-[address] [facility] Comment on above: Performed By: #### C MP, TERRENCE, BNP, LIPA ####[facility] Fwjguzbymj914[address] [place], [place] [address]Dr. Chrissy Frazier CO2 [Moles/Vol] 22.9 mmol/L Normal 21.0-32.0 [facility] Comment on above: Performed By: #### C MP, TERRENCE, BNP, LIPA ####[facility] Twedumiyyd54[address] [place], [place] [address]Dr. Chrissy Frazier Creatinine [Mass/Vol] 1.07 mg/dL Normal 0.70-1.[address] [facility] Comment on above: Performed By: #### C MP, TERRENCE, BNP, LIPA ####[facility] Pogyajzmqv3864 [place] [address]Dr. Chrissy Frazier EGFR-AF MOLDOVAN >60 Normal >=60 [facility] Comment on above: Performed By: #### C MP, TERRENCE, BNP, LIPA ####[facility] Cqerikodpy4087 [place] [address]Dr. Chrissy Frazier EGFR-NON AF MOLDOVAN >60 Normal >=[address] [facility] Comment on above: Performed By: #### C MP, TERRENCE, BNP, LIPA ####[facility] Hbccgxbnxh6533 [place] [address]Dr. Chrissy Frazier Globulin (S) [Mass/Vol] 3.2 g/dL Normal [facility] Comment on above: Performed By: #### C MP, TERRENCE, BNP, LIPA ####[facility] Yvhalyrqok2827 [place] [address]Dr. Chrissy Frazier Glucose [Mass/Vol] 96 mg/dL Normal 74-106 [facility] Comment on above: Performed By: #### C MP, TERRENCE, BNP, LIPA ####[facility] Mgcunfhhmu2948 [place] [address]Dr. Chrissy Frazier Potassium [Moles/Vol] 3.3 mmol/L Critically low 3.5-5.[address] [facility] Comment on above: Performed By: #### C MP, TERRENCE, BNP, LIPA ####[facility] Oaiepfhtqo[address] [place] [address]Dr. Chrissy Frazier Protein [Mass/Vol] 6.6 g/dL Normal 6.4-8.2 [facility] Comment on above: Performed By: #### C MP, TERRENCE, BNP, LIPA ####[facility] Somybxqkbf2604 [place] [address]Dr. Chrissy Frazier Sodium [Moles/Vol] 137 mmol/L Normal 136-145 [facility] Comment on above: Performed By: #### C MP, TERRENCE, BNP, LIPA ####[facility] Lestvgcquo2787 [place] [address]Dr. Chrissy Frazier Urea nitrogen [Mass/Vol] 13.0 mg/dL Normal 7.0-18.0 [facility] Comment on above: Performed By: #### C MP, TERRENCE, BNP, LIPA ####[facility] Tsfhinelmq307[address] [place], [place] [address]Dr. Chrissy Frazier Urea nitrogen/Creatinine [Mass ratio] 12.1 mg/mg Normal [facility] Comment on above: Performed By: #### C MP, TERRENCE, BNP, LIPA ####[facility] Avduklqjpa6427[address] [place], [place] [address]Dr. Chrissy Frazier UA RANDOM W/MICROSCOPICon BACTERIA TRACE Abnormal NONE SEEN [facility] Comment on above: Performed By: #### U AMIC ####[facility] Nqmayiqmmu526[address] [place], [place] [address]Dr. Chrissy Frazier Bilirubin Ql (U) Negative Normal NEGATIVE [facility] Comment on above: Performed By: #### U AMIC ####[facility] Hydhbowxwc3857[address] [place], [place] [address]Dr. Chrissy Frazier CAST NONE SEEN Normal NONE SEEN [facility] Comment on above: Performed By: #### U AMIC ####[facility] Dtnkxfdpfo3368[address] [place], [place] [address]Dr. Chrissy Frazier Clarity (U) CLEAR Normal CLEAR [facility] Comment on above: Performed By: #### U AMIC ####[facility] Cuakuzzfos728[address] [place], [place] [address]Dr. Chrissy Frazier Color (U) YELLOW Normal YELLOW [facility] Comment on above: Performed By: #### U AMIC ####[facility] Kthjmuiwgn770[address] [place], [place] [address]Dr. hCrissy Frazier Crystals LM Nom (Urine sed) SEEN Abnormal NONE SEEN [facility] Comment on above: Performed By: #### U AMIC ####[facility] Xdkbxnvmov5260[address] [place], [place] [address]Dr. Chrissy Frazier Epithelial cells LM Ql (Urine sed) RARE Normal NONE SEEN /RARE [facility] Comment on above: Performed By: #### U AMIC ####[facility] Fdhzxppxor0528 [place] [address]Dr. Tishrowan Freddie Glucose Ql (U) Negative Normal NEGATIVE [facility] Comment on above: Performed By: #### U AMIC ####[facility] Pfycxxosue4661 [place] [address]Dr. Chrissy Frazier Hemoglobin Ql (U) Negative Normal NEGATIVE [facility] Comment on above: Performed By: #### U AMIC ####[facility] Llxisdosai9223 [place] [address]Dr. Chrissy Frazier Ketones Ql (U) 15 mg/dl Abnormal NEGATIVE [facility] Comment on above: Performed By: #### U AMIC ####[facility] Gqvezkheom0889[address] [place], [place] [address]Dr. Chrissy Frazier LEUKOCYTES Negative Normal NEGATIVE [facility] Comment on above: Performed By: #### U AMIC ####[facility] Ryaqdjzfij733[address] [place], [place] [address]Dr. Chrissy Freddie MUCOUS NONE SEEN Normal NONE SEEN [facility] Comment on above: Performed By: #### U AMIC ####[facility] Ffdwgvbzum9080 [place] [address]Dr. Chrissy Frazier Nitrite Ql (U) Negative Normal NEGATIVE [facility] Comment on above: Performed By: #### U AMIC ####[facility] Lohdqljddj9712 [place] [address]Dr. Chrissy Frazier pH (U) 6.0 [pH] Normal 5-[address] [facility] Comment on above: Performed By: #### U AMIC ####[facility] Rdeoaiknzk5937[address] [place], [place] [address]Dr. Chrissy Frazier RBC 0-2 Normal 0-[address] [facility] Comment on above: Performed By: #### U AMIC ####[facility] Cxjisnfltk201[address] [place], [place] [address]Dr. Chrissy Frazier SPEC GRAVITY 1.015 Normal 1.005-<=1.025 [facility] Comment on above: Performed By: #### U AMIC ####[facility] Dxetboltkb0672 [place] [address]Dr. Chrissy Frazier UA PROTEIN Negative Normal NEGATIVE/ TRACE [facility] Comment on above: Performed By: #### U AMIC ####[facility] Wscdbuksrn3523 [place] [address]Dr. Chrissy Frazier URIC ACID CRYSTALS RARE Normal [facility] Comment on above: Performed By: #### U AMIC ####[facility] Qtpwoumari8607 [place] [address]Dr. Chrissy Frazier Urobilinogen Qn (U) 0.2 {Estrellita'U}/dL Normal 0.2 - 1. 0 [facility] Comment on above: Performed By: #### U AMIC ####[facility] Dvcttlunyn688[address] [place], [place] [address]Dr. Chrissy Frazier WBC 0-2 Abnormal NONE SEEN [facility] Comment on above: Performed By: #### U AMIC ####[facility] Kzwsbdqkvb2228 [place] [address]Dr. Tishrowan Frazier AMYLASEon 07-06-2022 Amylase [Catalytic activity/Vol] 37 U/L Normal 25-[address] [facility] Comment on above: Performed By: #### C MP, LIPA, TERRENCE ####[facility] Ewjdxyvlpz0922[address] [place], [place] [address]Dr. Chrissy Frazier CBC AUTO DIFFon 07-06-2022 BASO # 0.1 103/ul Normal 0.0-0.1 [facility] Comment on above: Performed By: #### C BC ####[facility] Ilmhkezayp9622[address] [place], [place] [address]Dr. Chrissy Frazier Basophils/100 WBC (Bld) 0.4 % Normal 0.2-2.0 [facility] Comment on above: Performed By: #### C BC ####[facility] Zkdnrpfdrj359[address] [place], [place] [address]Dr. Chrissy Frazier EO # 0.1 103/ul Normal 0.0-0.7 [facility] Comment on above: Performed By: #### C BC ####[facility] Utqxauhame9805 [place] [address]Dr. Chrissy Frazier Eosinophils/100 WBC (Bld) 0.5 % Critically low 0.9-7.0 [facility] Comment on above: Performed By: #### C BC ####[facility] Lgjcnuluhe0458 [place] [address]Dr. Chrissy Freddie Erythrocyte distribution width (RBC) [Ratio] 13.6 % Normal 11.0-15.0 [facility] Comment on above: Performed By: #### C BC ####[facility] Rmttbwdlna6025[address] [place], [place] [address]Dr. Chrissy Frazier Hematocrit (Bld) [Volume fraction] 47.9 % Normal 42.0-54.0 [facility] Comment on above: Performed By: #### C BC ####[facility] Ukuoaegztp9369[address] [place], [place] [address]Dr. Chrissy Freddie Hemoglobin (Bld) [Mass/Vol] 16.4 g/dL Normal 14.0-18.0 [facility] Comment on above: Performed By: #### C BC ####[facility] Fuqkocdkui1790[address] [place], [place] [address]Dr. Chrissy Frazier IG # 0.09 10e3/ul Critically high 0.00-0.03 [facility] Comment on above: Performed By: #### C BC ####[facility] Jofsovjhjv6530[address] [place], [place] [address]Dr. Chrissy Freddie IG % 0.6 % Critically high 0.0-0.5 [facility] Comment on above: Performed By: #### C BC ####[facility] Ydzjdgcadf000[address] [place], [place] [address]DrNancy Frazier LYMPH # 2.5 103/ul Normal 1.2-3.[address] [facility] Comment on above: Performed By: #### C BC ####[facility] Tdkhdntdzk930[address] [place], [place] [address]Dr. Chrissy Frazier Lymphocytes/100 WBC (Bld) 16.7 % Critically low 20.5-60.0 [facility] Comment on above: Performed By: #### C BC ####[facility] Djgdblrmgb9396 [place] [address]DrNancy Frazier MANUAL DIFF REQ NO Normal [facility] Comment on above: Performed By: #### C BC ####[facility] Hrvlrhufrv5153 [place] [address]DrNancy Frazier MCH (RBC) [Entitic mass] 28.1 pg Normal 25.9-34.0 [facility] Comment on above: Performed By: #### C BC ####[facility] Heqeglfbjc705[address] [place], [place] [address]DrNancy Frazier MCHC (RBC) [Mass/Vol] 34.2 g/dL Normal 29.9-35.[address] [facility] Comment on above: Performed By: #### C BC ####[facility] Uiyveccuxz065[address] [place], [place] [address]DrNancy Frazier MCV (RBC) [Entitic vol] 82.2 fL Normal 80.0-94.[address] [facility] Comment on above: Performed By: #### C BC ####[facility] Sdftgfbxay495[address] [place], [place] [address]DrNancy Frazier MONO # 1.0 103/ul Critically high 0.3-0.8 [facility] Comment on above: Performed By: #### C BC ####[facility] Dmysbmyqve1526[address] [place], [place] [address]DrNancy Frazier Monocytes/100 WBC (Bld) 6.7 % Normal 1.7-12.[address] [facility] Comment on above: Performed By: #### C BC ####[facility] Tvrptzealg9533[address] [place], [place] [address]DrNancy Frazier NEUT # 11.3 103/ul Critically high 1.4-6.5 [facility] Comment on above: Performed By: #### C BC ####[facility] Pffsiqcgvx8920[address] [place], [place] [address]DrNancy Frazier Neutrophils/100 WBC (Bld) 75.1 % Critically high 43.0-75.[address] [facility] Comment on above: Performed By: #### C BC ####[facility] Xwvxhhayet5867 [place] [address]Dr. Chrissy Frazier Platelet mean volume (Bld) [Entitic vol] 10.6 fL Normal 9.5-13.5 [facility] Comment on above: Performed By: #### C BC ####[facility] Akasnuorbb3652 [place] [address]Dr. Chrissy Frazier PLT 416 103/ul Normal 150-[address] [facility] Comment on above: Performed By: #### C BC ####[facility] Zzpzpolpzd9378 [place] [address]Dr. Chrissy Frazier RBC 5.83 106/ul Normal 4.70-6.[address] [facility] Comment on above: Performed By: #### C BC ####[facility] Ashdghhkgt9128 [place] [address]Dr. Chrissy Frazier WBC 15.0 103/ul Critically high 4.0-11.0 [facility] Comment on above: Performed By: #### C BC ####[facility] Bnqegtunta9943 [place] [address]Dr. Chrissy Frazier [facility]21 SARS-CoV-2 (COVID-19) RNA RHIANNON+probe Ql (Unsp spec) Not detected Normal NOT DETECTED [facility] Comment on above: Result Comment: When [...] for this test is supported by the [employer] of Health and Human Service's declaration that [...] be used). Performed By: #### C VDTBH ####[facility] Rgepdzjgcd5339 [place] [address]Dr. Chrissy Frazier LIPASEon 07-06-2022 Lipase [Catalytic activity/Vol] 130.0 U/L Normal 73.0-393.0 [facility] Comment on above: Performed By: #### C MP LIPA, TERRENCE ####[facility] Teuziigviz9324 [place] [address]Dr. Chrissy Frazier PROF 14(COMP METB)on 022 Albumin [Mass/Vol] 4.4 g/dL Normal 3.4-5.0 [facility] Comment on above: Performed By: #### C MP LIPA, TERRENCE ####[facility] Kjeviqvlmr4426 [place] [address]Dr. Chrissy Frazier Albumin/Globulin [Mass ratio] 1.1 {ratio} Normal [facility] Comment on above: Performed By: #### C MP LIPA, TERRENCE ####[facility] Ayfyahesne614[address] [place], [place] [address]Dr. Chrissy Frazier ALP [Catalytic activity/Vol] 83 U/L Normal 46-[address] [facility] Comment on above: Performed By: #### C MP, LIPA, TERRENCE ####[facility] Icoeuvefqs3844 [place] [address]Dr. Chrissy Frazier ALT [Catalytic activity/Vol] 107 U/L Critically high 16-[address] [facility] Comment on above: Performed By: #### C MP, LIPA, TERRENCE ####[facility] Xacoojeidw5205 [place] [address]DrNancy Frazier Anion gap [Moles/Vol] 20.5 mmol/L Normal [facility] Comment on above: Performed By: #### C MP, LIPA, TERRENCE ####[facility] Jbrtzmtkvp6632 [place] [address]Dr. Chrissy Frazier AST [Catalytic activity/Vol] 46 U/L Critically high 15-[address] [facility] Comment on above: Performed By: #### C OSWALD ADAIR, TERRENCE ####[facility] Alkjzyptrj9542 [place] [address]Dr. Chrissy Frazier Bilirubin [Mass/Vol] 1.2 mg/dL Critically high 0.2-1.0 [facility] Comment on above: Performed By: #### C OSWALD ADAIR, TERRENCE ####[facility] Obeareurys7915[address] [place], [place] [address]Dr. Chrissy Frazier Calcium [Mass/Vol] 9.1 mg/dL Normal 8.5-10.1 [facility] Comment on above: Performed By: #### C OSWALD ADAIR, TERRENCE ####[facility] Qbnsxkdelj2337[address] [place], [place] [address]Dr. Chrissy Frazier Chloride [Moles/Vol] 100 mmol/L Normal 98-[address] [facility] Comment on above: Performed By: #### C OSWALD ADAIR, TERRENCE ####[facility] Phwsihfgqu3020[address] [place], [place] [address]Dr. Chrissy Frazier CO2 [Moles/Vol] 18.6 mmol/L Critically low 21.0-32.[address] [facility] Comment on above: Performed By: #### C OSWALD ADAIR, TERRENCE ####[facility] Aixagsxukx2212[address] [place], [place] [address]Dr. Chrissy Frazier Creatinine [Mass/Vol] 1.44 mg/dL Critically high 0.70-1.[address] [facility] Comment on above: Performed By: #### C OSWALD ADAIR, TERRENCE ####[facility] Fuojvqzvvn2415[address] [place], [place] [address]Dr. Chrissy Frazier EGFR-AF MOLDOVAN >60 Normal >=60 [facility] Comment on above: Performed By: #### C TESSA ADAIRA, TERRENCE ####[facility] Qkfjxhxubd630[address] [place], [place] [address]Dr. Chrissy Frazier EGFR-NON AF MOLDOVAN 57 mL/min/1.73m2 Critically low >=[address] [facility] Comment on above: Performed By: #### C TESSA ADAIRA, TERRENCE ####[facility] Iqcmnsiabf1314 [place] [address]Dr. Chrissy Frazier Globulin (S) [Mass/Vol] 4.0 g/dL Normal [facility] Comment on above: Performed By: #### C MANA LIPA, TERRENCE ####[facility] Veamjiyazw8560 [place] [address]Dr. Chrissy Frazier Glucose [Mass/Vol] 117 mg/dL Critically high 74-106 [facility] Comment on above: Performed By: #### C MANA LIPA, TERRENCE ####[facility] Mjmvadyxgd4433[address] [place], [place] [address]Dr. Chrissy Frazier Potassium [Moles/Vol] 3.1 mmol/L Critically low 3.5-5.1 [facility] Comment on above: Performed By: #### C MANA LIPA, TERRENCE ####[facility] Yiknxguwcw139[address] [place], [place] [address]Dr. Chrissy Frazier Protein [Mass/Vol] 8.4 g/dL Critically high 6.4-8.2 [facility] Comment on above: Performed By: #### C MANA LIPA, TERRENCE ####[facility] Ucpvnirdob5950[address] [place], [place] [address]Dr. Chrissy Frazier Sodium [Moles/Vol] 136 mmol/L Normal 136-145 [facility] Comment on above: Performed By: #### C MANA LIPA, TERRENCE ####[facility] Qfbmecilok2814[address] [place], [place] [address]Dr. Chrissy Frazier Urea nitrogen [Mass/Vol] 15.0 mg/dL Normal 7.0-18.0 [facility] Comment on above: Performed By: #### C MANA LIPA, TERRENCE ####[facility] Ghrudjlxjc7[address] [place], [place] [address]Dr. Chrissy Frazier Urea nitrogen/Creatinine [Mass ratio] 10.4 mg/mg Normal [facility] Comment on above: Performed By: #### C MANA LIPA, TERRENCE ####[facility] Nxkguzbojx25[address] [place], [place] [address]Dr. Chrissy Frazier CBC AUTO DIFFon 07-05-2022 BASO # 0.0 103/ul Normal 0.0-0.1 [facility] Comment on above: Performed By: #### C BC ####[facility] Quhagjzqeb9912 [place] [id number]. Chrissy Frazier Basophils/100 WBC (Bld) 0.3 % Normal 0.2-2.[address] [facility] Comment on above: Performed By: #### C BC ####[facility] Vwrbzslxiw1358 [place] [id number]. Chrissy Freddie EO # 0.2 103/ul Normal 0.0-0.[address] [facility] Comment on above: Performed By: #### C BC ####[facility] Qudfdpysix8743 [place] [address]Dr. Chrissy Freddie Eosinophils/100 WBC (Bld) 1.5 % Normal 0.9-7.[address] [facility] Comment on above: Performed By: #### C BC ####[facility] Rhzecrkcar2467 [place] [address]Dr. Chrissy Frazier Erythrocyte distribution width (RBC) [Ratio] 13.9 % Normal 11.0-15.0 [facility] Comment on above: Performed By: #### C BC ####[facility] Iyhsdassra4631 [place] [id number]. Chrissy Frazier Hematocrit (Bld) [Volume fraction] 44.5 % Normal 42.0-54.[address] [facility] Comment on above: Performed By: #### C BC ####[facility] Vepcutlool1006 [place] [id number]. Chrissy Frazier Hemoglobin (Bld) [Mass/Vol] 14.8 g/dL Normal 14.0-18.[address] [facility] Comment on above: Performed By: #### C BC ####[facility] Tmyqfayswc6807 [place] [id number]. Tishrowan Freddie IG # 0.05 10e3/ul Critically high 0.00-0.03 [facility] Comment on above: Performed By: #### C BC ####[facility] Jyqwesnadp4405 [place], [place] [address]Mu. Chrissy Frazier IG % 0.4 % Normal 0.0-0.[address] [facility] Comment on above: Performed By: #### C BC ####[facility] Gadasacdsb6961 [place], [place] [address]Ki. Chrissy Frazier LYMPH # 3.3 103/ul Normal 1.2-3.[address] [facility] Comment on above: Performed By: #### C BC ####[facility] Jxpcdzpezm4387 [place] [id number]. Chrissy Frazier Lymphocytes/100 WBC (Bld) 29.1 % Normal 20.5-60.[address] [facility] Comment on above: Performed By: #### C BC ####[facility] Mvrrggpusv7583 [place] [id number]. Chrissy Frazier MANUAL DIFF REQ NO Normal [facility] Comment on above: Performed By: #### C BC ####[facility] Jfrpjkpnnq1566 [place] [id number]. Chrissy Frazier MCH (RBC) [Entitic mass] 28.2 pg Normal 25.9-34.[address] [facility] Comment on above: Performed By: #### C BC ####[facility] Weivpneyqv7[address] [place] [id number]. Chrissy Frazier MCHC (RBC) [Mass/Vol] 33.3 g/dL Normal 29.9-35.[address] [facility] Comment on above: Performed By: #### C BC ####[facility] Nkbfggexru4403 [place] [id number]. Chrissy Frazier MCV (RBC) [Entitic vol] 84.9 fL Normal 80.0-94.[address] [facility] Comment on above: Performed By: #### C BC ####[facility] Fabjagbdlp4318 [place] [id number]. Chrissy Frazier MONO # 0.6 103/ul Normal 0.3-0.[address] [facility] Comment on above: Performed By: #### C BC ####[facility] Xyimuklreo4897 [place] [id number]. Chrissy Frazier Monocytes/100 WBC (Bld) 5.4 % Normal 1.7-12.[address] [facility] Comment on above: Performed By: #### C BC ####[facility] Pxdsszrcru6390 [place] [id number]. Chrissy Frazier NEUT # 7.1 103/ul Critically high 1.4-6.5 [facility] Comment on above: Performed By: #### C BC ####[facility] Ydgzathqss0648 [place] [id number]. Chrissy Frazier Neutrophils/100 WBC (Bld) 63.3 % Normal 43.0-75.[address] [facility] Comment on above: Performed By: #### C BC ####[facility] Qftiaothdu9473 [place] [address]Dr. Chrissy Frazier Platelet mean volume (Bld) [Entitic vol] 9.9 fL Normal 9.5-13.[address] [facility] Comment on above: Performed By: #### C BC ####[facility] Glgqcslaqv1787 [place] [id number]. Chrissy Frazier PLT 339 103/ul Normal 150-[address] [facility] Comment on above: Performed By: #### C BC ####[facility] Yeozoqdqgb8538 [place] [id number]. Chrissy Frazier RBC 5.24 106/ul Normal 4.70-6.[address] [facility] Comment on above: Performed By: #### C BC ####[facility] Urkjrdianp6144 [place] [id number]. Chrissy Frazier WBC 11.2 103/ul Critically high 4.0-11.0 [facility] Comment on above: Performed By: #### C BC ####[facility] Uwpdfqoilj6074 [place] [address]Dr. Chrissy Frazier PROF 14(COMP METB)on 022 Albumin [Mass/Vol] 3.8 g/dL Normal 3.4-5.0 [facility] Comment on above: Performed By: #### C MP ####[facility] Udmxtjbstb9901 [place] [id number]. Chrissy Frazier Albumin/Globulin [Mass ratio] 1.1 {ratio} Normal [facility] Comment on above: Performed By: #### C MP ####[facility] Cnxidifydk6319 [place] [id number]. Chrissy Frazier ALP [Catalytic activity/Vol] 67 U/L Normal 46-116 [facility] Comment on above: Performed By: #### C MP ####[facility] Roafaxhugr3895 [place] [address]Dr. Chrissy Freddie ALT [Catalytic activity/Vol] 75 U/L Critically high 16-63 [facility] Comment on above: Performed By: #### C MP ####[facility] Bwzpqnfmhh80[address] [place], [place] [address]Dr. Chrissy Freddie Anion gap [Moles/Vol] 14.3 mmol/L Normal [facility] Comment on above: Performed By: #### C MP ####[facility] Loofkcsvag515162 [address] [place], [place] [address]Dr. Chrissy Freddie AST [Catalytic activity/Vol] 40 U/L Critically high 15-37 [facility] Comment on above: Performed By: #### C MP ####[facility] Ovdkgbwesd496062 [address] [place], [place] [address]Dr. Chrissy Freddie Bilirubin [Mass/Vol] 0.9 mg/dL Normal 0.2-1.0 [facility] Comment on above: Performed By: #### C MP ####[facility] Jasahndsza2271 [place] [address]Dr. Chrissy Freddie Calcium [Mass/Vol] 8.4 mg/dL Critically low 8.5-10.1 [facility] Comment on above: Performed By: #### C MP ####[facility] Qjebdfytaf525[address] [place], [place] [address]Dr. Chrissy Frazier Chloride [Moles/Vol] 104 mmol/L Normal 98-[address] [facility] Comment on above: Performed By: #### C MP ####[facility] Vabwusdrfa3015 [place] [address]Dr. Chrissy Frazier CO2 [Moles/Vol] 24.1 mmol/L Normal 21.0-32.0 [facility] Comment on above: Performed By: #### C MP ####[facility] Mgftmptnym2756 [place] [address]Dr. Chrissy Frazier Creatinine [Mass/Vol] 1.11 mg/dL Normal 0.70-1.[address] [facility] Comment on above: Performed By: #### C MP ####[facility] Vtijieqvhr6588[address] [place], [place] [address]Dr. Chrissy Freddie EGFR-AF MOLDOVAN >60 Normal >=60 [facility] Comment on above: Performed By: #### C MP ####[facility] Ryfbfxjwiy5909[address] [place], [place] [address]Dr. Chrissy Frazier EGFR-NON AF MOLDOVAN >60 Normal >=[address] [facility] Comment on above: Performed By: #### C MP ####[facility] Pszjdevcth7929[address] [place], [place] [address]Dr. Chrissy Frazier Globulin (S) [Mass/Vol] 3.6 g/dL Normal [facility] Comment on above: Performed By: #### C MP ####[facility] Squukfwbho412[address] [place], [place] [address]Dr. Chrissy Frazier Glucose [Mass/Vol] 89 mg/dL Normal 74-106 [facility] Comment on above: Performed By: #### C MP ####[facility] Ydedbgcuep1465[address] [place], [place] [address]Dr. Chrissy Frazier Potassium [Moles/Vol] 3.4 mmol/L Critically low 3.5-5.[address] [facility] Comment on above: Performed By: #### C MP ####[facility] Hynfdojxwy968[address] [place], [place] [address]Dr. Chrissy Frazier Protein [Mass/Vol] 7.4 g/dL Normal 6.4-8.2 [facility] Comment on above: Performed By: #### C MP ####[facility] Erzvsnutrj639[address] [place], [place] [address]Dr. Chrissy Frazier Sodium [Moles/Vol] 139 mmol/L Normal 136-145 [facility] Comment on above: Performed By: #### C MP ####[facility] Sfufdjacty3755[address] [place], [place] [address]Dr. Chrissy Frazier Urea nitrogen [Mass/Vol] 10.0 mg/dL Normal 7.0-18.0 [facility] Comment on above: Performed By: #### C MP ####[facility] Xbvsehghiu258062 [address] [place], [place] [address]Dr. Chrissy Freddie Urea nitrogen/Creatinine [Mass ratio] 9.0 mg/mg Normal [facility] Comment on above: Performed By: #### C MP ####[facility] Sthtjdxyyh8499[address] [place], [place] [address]Dr. Chrissy Frazier CBC AUTO DIFFon 07-04-2022 BASO # 0.0 103/ul Normal 0.0-0.1 [facility] Comment on above: Performed By: #### C BC ####[facility] Xxniyeiefi967262 [address] [place], [place] [address]Dr. Chrissy Freddie Basophils/100 WBC (Bld) 0.2 % Normal 0.2-2.0 [facility] Comment on above: Performed By: #### C BC ####[facility] Apcsdyfvec580[address] [place], [place] [address]Dr. Chrissy Frazier EO # 0.0 103/ul Normal 0.0-0.7 [facility] Comment on above: Performed By: #### C BC ####[facility] Brfchddeag010[address] [place], [place] [address]Dr. Chrissy Freddie Eosinophils/100 WBC (Bld) 0.3 % Critically low 0.9-7.[address] [facility] Comment on above: Performed By: #### C BC ####[facility] Zkgcfzvsid9049[address] [place], [place] [address]Dr. Chrissy Frazier Erythrocyte distribution width (RBC) [Ratio] 14.0 % Normal 11.0-15.0 [facility] Comment on above: Performed By: #### C BC ####[facility] Wytkxczhkp647[address] [place], [place] [id number]. Chrissy Frazier Hematocrit (Bld) [Volume fraction] 43.2 % Normal 42.0-54.[address] [facility] Comment on above: Performed By: #### C BC ####[facility] Ydylikuosb6595 [place] [address]Dr. Chrissy Frazier Hemoglobin (Bld) [Mass/Vol] 14.6 g/dL Normal 14.0-18.[address] [facility] Comment on above: Performed By: #### C BC ####[facility] Usdzfszcek9418 [place] [address]Dr. Chrissy Freddie IG # 0.11 10e3/ul Critically high 0.00-0.03 [facility] Comment on above: Performed By: #### C BC ####[facility] Ruwyqabohb3154 [place] [address]Dr. Tishrowan Frazier IG % 0.8 % Critically high 0.0-0.5 [facility] Comment on above: Performed By: #### C BC ####[facility] Yuujkhceih9631 [place] [address]Dr. Chrissy Freddie LYMPH # 2.6 103/ul Normal 1.2-3.[address] [facility] Comment on above: Performed By: #### C BC ####[facility] Pkwckoziqf4462 [place] [address]Dr. Chrissy Freddie Lymphocytes/100 WBC (Bld) 18.3 % Critically low 20.5-60.[address] [facility] Comment on above: Performed By: #### C BC ####[facility] Noldxlluay2278 [place] [address]DrNancy Tishrowan Frazier MANUAL DIFF REQ NO Normal [facility] Comment on above: Performed By: #### C BC ####[facility] Vhggolpouj8788 [place] [address]DrNancy Chrissy Freddie MCH (RBC) [Entitic mass] 28.1 pg Normal 25.9-34.[address] [facility] Comment on above: Performed By: #### C BC ####[facility] Frzapkpsfd995[address] [place], [place] [address]Dr. Chrissy Frazier MCHC (RBC) [Mass/Vol] 33.8 g/dL Normal 29.9-35.[address] [facility] Comment on above: Performed By: #### C BC ####[facility] Sidccgfthf9014 [place] [id number]. Chrissy Frazier MCV (RBC) [Entitic vol] 83.2 fL Normal 80.0-94.[address] [facility] Comment on above: Performed By: #### C BC ####[facility] Nvprwxriyg5676 [place] [id number]. Chrissy Freddie MONO # 0.7 103/ul Normal 0.3-0.[address] [facility] Comment on above: Performed By: #### C BC ####[facility] Hkvnmbfeny0047 [place] [address]Dr. Chrissy Frazier Monocytes/100 WBC (Bld) 5.3 % Normal 1.7-12.[address] [facility] Comment on above: Performed By: #### C BC ####[facility] Yojffbvlbp7966 [place] [id number]. Chrissy Freddie NEUT # 10.5 103/ul Critically high 1.4-6.5 [facility] Comment on above: Performed By: #### C BC ####[facility] Dlxrldtsek2914 [place] [address]Dr. Chrissy Freddie Neutrophils/100 WBC (Bld) 75.1 % Critically high 43.0-75.[address] [facility] Comment on above: Performed By: #### C BC ####[facility] Rzlttovawl2351 [place] [id number]. Chrissy Freddie Platelet mean volume (Bld) [Entitic vol] 10.6 fL Normal 9.5-13.[address] [facility] Comment on above: Performed By: #### C BC ####[facility] Dbmlauzigi1043 [place] [address]Dr. Tishrowan Freddie PLT 309 103/ul Normal 150-[address] [facility] Comment on above: Performed By: #### C BC ####[facility] Ctaebzvjmx7694 [place] [address]Dr. Chrissy Frazier RBC 5.19 106/ul Normal 4.70-6.[address] [facility] Comment on above: Performed By: #### C BC ####[facility] Qdyqihjeed9902 [place] [address]Dr. Chrissy Frazier WBC 14.0 103/ul Critically high 4.0-11.0 [facility] Comment on above: Performed By: #### C BC ####[facility] Xvclaqtubv0841 [place] [address]Dr. Chrissy Frazier PROF 14(COMP METB)on 022 Albumin [Mass/Vol] 4.0 g/dL Normal 3.4-5.0 [facility] Comment on above: Performed By: #### C MP ####[facility] Bhkpauqess4820[address] [place], [place] [address]Dr. Chrissy Frazier Albumin/Globulin [Mass ratio] 1.1 {ratio} Normal [facility] Comment on above: Performed By: #### C MP ####[facility] Xpmnpykhem4028[address] [place], [place] [address]Dr. Chrissy Frazier ALP [Catalytic activity/Vol] 67 U/L Normal 46-[address] [facility] Comment on above: Performed By: #### C MP ####[facility] Ijkfiugvsp7467[address] [place], [place] [address]Dr. Chrissy Frazier ALT [Catalytic activity/Vol] 40 U/L Normal 16-[address] [facility] Comment on above: Performed By: #### C MP ####[facility] Abxwyrxcyn088[address] [place], [place] [address]Dr. Chrissy Frazier Anion gap [Moles/Vol] 17.7 mmol/L Normal [facility] Comment on above: Performed By: #### C MP ####[facility] Lxapsjvvyz8513[address] [place], [place] [address]Dr. Chrissy Frazier AST [Catalytic activity/Vol] 27 U/L Normal 15-37 [facility] Comment on above: Performed By: #### C MP ####[facility] Xfjzkamfsw1936[address] [place], [place] [address]Dr. Chrissy Frazier Bilirubin [Mass/Vol] 0.8 mg/dL Normal 0.2-1.[address] [facility] Comment on above: Performed By: #### C MP ####[facility] Kqvyennsxp910[address] [place], [place] [address]Dr. Chrissy Frazier Calcium [Mass/Vol] 8.8 mg/dL Normal 8.5-10.1 [facility] Comment on above: Performed By: #### C MP ####[facility] Njhowzjsbj917[address] [place], [place] [address]Dr. Chrissy Frazier Chloride [Moles/Vol] 105 mmol/L Normal 98-[address] [facility] Comment on above: Performed By: #### C MP ####[facility] Suwwkxawlv2740[address] [place], [place] [address]Dr. Chrissy Frazier CO2 [Moles/Vol] 16.5 mmol/L Critically low 21.0-32.[address] [facility] Comment on above: Performed By: #### C MP ####[facility] Tdrfxslpgr337[address] [place], [place] [address]Dr. Chrissy Frazier Creatinine [Mass/Vol] 1.02 mg/dL Normal 0.70-1.30 [facility] Comment on above: Performed By: #### C MP ####[facility] Hzhocubrzm3617[address] [place], [place] [address]Dr. Chrissy Frazier EGFR-AF MOLDOVAN >60 Normal >=60 [facility] Comment on above: Performed By: #### C MP ####[facility] Hiwqnqprve2484[address] [place], [place] [address]Dr. Chrissy Frazier EGFR-NON AF MOLDOVAN >60 Normal >=[address] [facility] Comment on above: Performed By: #### C MP ####[facility] Tcmlywotma454162 [address] [place], [place] [address]Dr. Chrissy Frazier Globulin (S) [Mass/Vol] 3.7 g/dL Normal [facility] Comment on above: Performed By: #### C MP ####[facility] Oqvweaigap6438[address] [place], [place] [address]Dr. Chrissy Frazier Glucose [Mass/Vol] 106 mg/dL Normal 74-106 [facility] Comment on above: Performed By: #### C MP ####[facility] Tsiznvqpti6689 [place] [address]Dr. Chrissy Frazier Potassium [Moles/Vol] 3.2 mmol/L Critically low 3.5-5.1 [facility] Comment on above: Performed By: #### C MP ####[facility] Vbtsujchhz335[address] [place], [place] [address]Dr. Chrissy Frazier Protein [Mass/Vol] 7.7 g/dL Normal 6.4-8.2 [facility] Comment on above: Performed By: #### C MP ####[facility] Arnrvqqvru875[address] [place], [place] [address]Dr. Chrissy Frazier Sodium [Moles/Vol] 136 mmol/L Normal 136-145 [facility] Comment on above: Performed By: #### C MP ####[facility] Pfmpwkwfvq732262 [address] [place], [place] [address]Dr. Chrissy Frazier Urea nitrogen [Mass/Vol] 10.0 mg/dL Normal 7.0-18.0 [facility] Comment on above: Performed By: #### C MP ####[facility] Jwuwwvaaiv2827[address] [place], [place] [address]Dr. Chrissy Frazier Urea nitrogen/Creatinine [Mass ratio] 9.8 mg/mg Normal [facility] Comment on above: Performed By: #### C MP ####[facility] Vlbgwbcfez3315[address] [place], [place] [address]Dr. Chrissy Frazier CBC AUTO DIFFon 07-03-2022 BASO # 0.1 103/ul Normal 0.0-0.1 [facility] Comment on above: Performed By: #### C BC ####[facility] Gevbscbmat4217[address] [place], [place] [address]Dr. Chrissy Frazier Basophils/100 WBC (Bld) 0.5 % Normal 0.2-2.0 [facility] Comment on above: Performed By: #### C BC ####[facility] Hvbjzeezjp574[address] [place], [place] [address]Dr. Chrissy Frazier EO # 0.1 103/ul Normal 0.0-0.[address] [facility] Comment on above: Performed By: #### C BC ####[facility] Uiqbnepkha1391 [place] [address]Dr. Chrissy Freddie Eosinophils/100 WBC (Bld) 1.3 % Normal 0.9-7.[address] [facility] Comment on above: Performed By: #### C BC ####[facility] Rhrmouwpts610[address] [place], [place] [address]Dr. Chrissy Frazier Erythrocyte distribution width (RBC) [Ratio] 14.2 % Normal 11.0-15.[address] [facility] Comment on above: Performed By: #### C BC ####[facility] Oagfizsxoy8465[address] [place], [place] [address]Dr. Tishrowan Frazier Hematocrit (Bld) [Volume fraction] 41.7 % Critically low 42.0-54.[address] [facility] Comment on above: Performed By: #### C BC ####[facility] Jpaxihzdrr820[address] [place], [place] [address]Dr. Chrissy Frazier Hemoglobin (Bld) [Mass/Vol] 13.6 g/dL Critically low 14.0-18.[address] [facility] Comment on above: Performed By: #### C BC ####[facility] Mxbgjjgnpn517[address] [place], [place] [address]Dr. Chrissy Frazier IG # 0.04 10e3/ul Critically high 0.00-0.03 [facility] Comment on above: Performed By: #### C BC ####[facility] Kbmejissqh814[address] [place], [place] [address]Dr. Chrissy Frazier IG % 0.4 % Normal 0.0-0.[address] [facility] Comment on above: Performed By: #### C BC ####[facility] Whqffehvdt3624[address] [place], [place] [address]Dr. Chrissy Frazier LYMPH # 3.5 103/ul Normal 1.2-3.[address] [facility] Comment on above: Performed By: #### C BC ####[facility] Xhtkknshte147462 [address] [place], [place] [address]Dr. Chrissy Frazier Lymphocytes/100 WBC (Bld) 33.5 % Normal 20.5-60.[address] [facility] Comment on above: Performed By: #### C BC ####[facility] Rhfvcqxawi3013 [place] [address]DrNancy Frazier MANUAL DIFF REQ NO Normal [facility] Comment on above: Performed By: #### C BC ####[facility] Wfxphlprbt7373 [place] [address]DrNancy Frazier MCH (RBC) [Entitic mass] 27.9 pg Normal 25.9-34.[address] [facility] Comment on above: Performed By: #### C BC ####[facility] Caaypyisxw943[address] [place], [place] [address]DrNancy Frazier MCHC (RBC) [Mass/Vol] 32.6 g/dL Normal 29.9-35.[address] [facility] Comment on above: Performed By: #### C BC ####[facility] Vjkoxswhwr533[address] [place], [place] [address]DrNancy Frazier MCV (RBC) [Entitic vol] 85.6 fL Normal 80.0-94.[address] [facility] Comment on above: Performed By: #### C BC ####[facility] Axcoudkuaj8020[address] [place], [place] [address]DrNancy Frazier MONO # 0.7 103/ul Normal 0.3-0.[address] [facility] Comment on above: Performed By: #### C BC ####[facility] Omjiipdfdm2417[address] [place], [place] [address]DrNancy Frazier Monocytes/100 WBC (Bld) 6.5 % Normal 1.7-12.[address] [facility] Comment on above: Performed By: #### C BC ####[facility] Jphekhhluf555[address] [place], [place] [address]DrNancy Frazier NEUT # 6.1 103/ul Normal 1.4-6.[address] [facility] Comment on above: Performed By: #### C BC ####[facility] Vgrfmybkwy8032[address] [place], [place] [address]Dr. Chrissy Frazier Neutrophils/100 WBC (Bld) 57.8 % Normal 43.0-75.0 [facility] Comment on above: Performed By: #### C BC ####[facility] Nrvpxsqqcd2462 [place] [address]DrNancy Frazier Platelet mean volume (Bld) [Entitic vol] 10.4 fL Normal 9.5-13.[address] [facility] Comment on above: Performed By: #### C BC ####[facility] Pzziwcotyd8789[address] [place], [place] [address]DrNancy Frazier PLT 288 103/ul Normal 150-[address] [facility] Comment on above: Performed By: #### C BC ####[facility] Skbgwbyabp757[address] [place], [place] [address]DrNancy Frazier RBC 4.87 106/ul Normal 4.70-6.[address] [facility] Comment on above: Performed By: #### C BC ####[facility] Skzegrtlib6439[address] [place], [place] [address]DrNancy Frazier WBC 10.5 103/ul Normal 4.0-11.[address] [facility] Comment on above: Performed By: #### C BC ####[facility] Ywizyotsri7889[address] [place], [place] [address]Dr. Chrissy Frazier PROF 14(COMP METB)on 022 Albumin [Mass/Vol] 3.6 g/dL Normal 3.4-5.0 [facility] Comment on above: Performed By: #### C MP ####[facility] Qubclmzjyu2410[address] [place], [place] [address]DrNancy Frazier Albumin/Globulin [Mass ratio] 1.1 {ratio} Normal [facility] Comment on above: Performed By: #### C MP ####[facility] Hiapiihjpt415[address] [place], [place] [address]DrNancy Frazier ALP [Catalytic activity/Vol] 58 U/L Normal 46-[address] [facility] Comment on above: Performed By: #### C MP ####[facility] Dhohrymdcu033[address] [place], [place] [address]DrNancy Frazier ALT [Catalytic activity/Vol] 30 U/L Normal 16-63 [facility] Comment on above: Performed By: #### C MP ####[facility] Zcnjocpfee0913 [place] [address]Dr. Tishrowan Freddie Anion gap [Moles/Vol] 14.5 mmol/L Normal [facility] Comment on above: Performed By: #### C MP ####[facility] Adrsdqqirp9767[address] [place], [place] [address]Dr. Chrissy Freddie AST [Catalytic activity/Vol] 17 U/L Normal 15-37 [facility] Comment on above: Performed By: #### C MP ####[facility] Jipoxdwypo960[address] [place], [place] [address]Dr. Chrissy Frazier Bilirubin [Mass/Vol] 0.6 mg/dL Normal 0.2-1.0 [facility] Comment on above: Performed By: #### C MP ####[facility] Donawdmbqr2490[address] [place], [place] [address]Dr. Chrisys Frazier Calcium [Mass/Vol] 8.4 mg/dL Critically low 8.5-10.1 [facility] Comment on above: Performed By: #### C MP ####[facility] Wsfbfiwpfi2448[address] [place], [place] [address]Dr. Chrissy Frazier Chloride [Moles/Vol] 106 mmol/L Normal 98-[address] [facility] Comment on above: Performed By: #### C MP ####[facility] Rbosrlotlz029[address] [place], [place] [address]Dr. Chrissy Frazier CO2 [Moles/Vol] 22.6 mmol/L Normal 21.0-32.0 [facility] Comment on above: Performed By: #### C MP ####[facility] Pjfgbwaiui346[address] [place], [place] [address]Dr. Chrissy Frazier Creatinine [Mass/Vol] 1.08 mg/dL Normal 0.70-1.30 [facility] Comment on above: Performed By: #### C MP ####[facility] Veziezakjc1467[address] [place], [place] [address]Dr. Chrissy Frazier EGFR-AF MOLDOVAN >60 Normal >=60 [facility] Comment on above: Performed By: #### C MP ####[facility] Balufaxafv2191 [place] [id number]. Chrissy Frazier EGFR-NON AF MOLDOVAN >60 Normal >=[address] [facility] Comment on above: Performed By: #### C MP ####[facility] Zibqmyjmli3545 [place] [id number]. Chrissy Freddie Globulin (S) [Mass/Vol] 3.3 g/dL Normal [facility] Comment on above: Performed By: #### C MP ####[facility] Oqloeymqcg1068 [place] [id number]. Chrissy Freddie Glucose [Mass/Vol] 94 mg/dL Normal 74-106 [facility] Comment on above: Performed By: #### C MP ####[facility] Jtbkwdlagq8382 [place] [address]Dr. Chrissy Freddie Potassium [Moles/Vol] 3.1 mmol/L Critically low 3.5-5.1 [facility] Comment on above: Performed By: #### C MP ####[facility] Xqirodyorw0839 [place] [id number]. Chrissy Freddie Protein [Mass/Vol] 6.9 g/dL Normal 6.4-8.2 [facility] Comment on above: Performed By: #### C MP ####[facility] Ftijokuaqe8896 [place] [address]Dr. Chrissy Freddie Sodium [Moles/Vol] 140 mmol/L Normal 136-145 [facility] Comment on above: Performed By: #### C MP ####[facility] Yiypultifc11[address] [place] [id number]. Chrissy Freddie Urea nitrogen [Mass/Vol] 10.0 mg/dL Normal 7.0-18.[address] [facility] Comment on above: Performed By: #### C MP ####[facility] Emrahszdnt32[address] [place] [address]Dr. Chrissy Frazier Urea nitrogen/Creatinine [Mass ratio] 9.3 mg/mg Normal [facility] Comment on above: Performed By: #### C MP ####[facility] Ixnzdhznew0746 [place] [address]Dr. Chrissy Freddie CBC AUTO DIFFon 07-02-2022 BASO # 0.0 103/ul Normal 0.0-0.1 [facility] Comment on above: Performed By: #### C BC ####[facility] Wuynixajyw45[address] [place], [place] [address]Dr. Chrissy Frazier Basophils/100 WBC (Bld) 0.2 % Normal 0.2-2.[address] [facility] Comment on above: Performed By: #### C BC ####[facility] Afjuouiong8828[address] [place], [place] [address]Dr. Chrissy Frazier EO # 0.0 103/ul Normal 0.0-0.[address] [facility] Comment on above: Performed By: #### C BC ####[facility] Oscnmhgurk8315[address] [place], [place] [address]Dr. Chrissy Frazier Eosinophils/100 WBC (Bld) 0.0 % Critically low 0.9-7.0 [facility] Comment on above: Performed By: #### C BC ####[facility] Qtguberrwa345[address] [place], [place] [address]Dr. Tishrowan Frazier Erythrocyte distribution width (RBC) [Ratio] 14.2 % Normal 11.0-15.0 [facility] Comment on above: Performed By: #### C BC ####[facility] Hourpooagp385[address] [place], [place] [address]Dr. Chrissy Frazier Hematocrit (Bld) [Volume fraction] 46.2 % Normal 42.0-54.[address] [facility] Comment on above: Performed By: #### C BC ####[facility] Ommydxaohy9067[address] [place], [place] [address]Dr. Chrissy Frazier Hemoglobin (Bld) [Mass/Vol] 15.2 g/dL Normal 14.0-18.[address] [facility] Comment on above: Performed By: #### C BC ####[facility] Byrzudltfk6447[address] [place], [place] [address]Dr. Chrissy Frazier IG # 0.07 10e3/ul Critically high 0.00-0.03 [facility] Comment on above: Performed By: #### C BC ####[facility] Btzyhxtwnj8151 [place] [address]DrNancy Chrissy Frazier IG % 0.4 % Normal 0.0-0.5 [facility] Comment on above: Performed By: #### C BC ####[facility] Llbjkhyfww4594 [place] [address]DrNancy Chrissy Freddie LYMPH # 2.8 103/ul Normal 1.2-3.8 [facility] Comment on above: Performed By: #### C BC ####[facility] Foalrbzwya8057[address] [place], [place] [address]DrNancy Tishrowan Frazier Lymphocytes/100 WBC (Bld) 16.7 % Critically low 20.5-60.0 [facility] Comment on above: Performed By: #### C BC ####[facility] Ljkdqxztmu2957[address] [place], [place] [address]DrNancy Frazier MANUAL DIFF REQ NO Normal [facility] Comment on above: Performed By: #### C BC ####[facility] Naehupunex9642 [place] [address]DrNancy Chrissy Freddie MCH (RBC) [Entitic mass] 28.3 pg Normal 25.9-34.0 [facility] Comment on above: Performed By: #### C BC ####[facility] Dofqeqskhy1130[address] [place], [place] [address]DrNancy Chrissy Freddie MCHC (RBC) [Mass/Vol] 32.9 g/dL Normal 29.9-35.2 [facility] Comment on above: Performed By: #### C BC ####[facility] Mmpabsjhtu9422[address] [place], [place] [address]DrNancy Tishrowan Frazier MCV (RBC) [Entitic vol] 86.0 fL Normal 80.0-94.0 [facility] Comment on above: Performed By: #### C BC ####[facility] Yjzrfmeoki9839[address] [place], [place] [address]DrNancy Frazier MONO # 0.9 103/ul Critically high 0.3-0.8 [facility] Comment on above: Performed By: #### C BC ####[facility] Qzueakviaq8695 [place] [id number]. Chrissy Frazier Monocytes/100 WBC (Bld) 5.1 % Normal 1.7-12.0 [facility] Comment on above: Performed By: #### C BC ####[facility] Ntxpbockvn5605 [place] [id number]. Chrissy Frazier NEUT # 13.2 103/ul Critically high 1.4-6.5 [facility] Comment on above: Performed By: #### C BC ####[facility] Flzjbtpvdg3963 [place] [id number]. Chrissy Frazier Neutrophils/100 WBC (Bld) 77.6 % Critically high 43.0-75.0 [facility] Comment on above: Performed By: #### C BC ####[facility] Iqrunrrxxf0236 [place] [address]Dr. Chrissy Frazier Platelet mean volume (Bld) [Entitic vol] 11.6 fL Normal 9.5-13.[address] [facility] Comment on above: Performed By: #### C BC ####[facility] Xraoqmrzlg807[address] [place], [place] [address]Dr. Chrissy Farzier PLT 317 103/ul Normal 150-[address] [facility] Comment on above: Performed By: #### C BC ####[facility] Qoidolionj4325 [place] [id number]. Chrissy Frazier RBC 5.37 106/ul Normal 4.70-6.[address] [facility] Comment on above: Performed By: #### C BC ####[facility] Pbnqinrrcm4920 [place] [id number]. Chrissy Frazier WBC 17.1 103/ul Critically high 4.0-11.0 [facility] Comment on above: Performed By: #### C BC ####[facility] Xlkjcdxfyd1178 [place] [id number]. Chrissy Frazier CT ABD/PELV W CONon 07-02-[address] ABD/PELV W CON Normal [facility] H PYLORI ANTIBODY IGGon 06-21 H. PYLORI IGG ABS 0.13 Index Value Normal 0.00-0.79 [facility] Comment on above: Result Comment: Nega tive <0.80 Equivocal 0.80 - 0.89 Positive >0.89 Performed By: #### H PYLLC ####[facility] Ndwdcepvou5622 [place] [address]Dr. Chrissy Frazier PROF 14(COMP METB)on 022 Albumin [Mass/Vol] 3.8 g/dL Normal 3.4-5.0 [facility] Comment on above: Performed By: #### C MP ####[facility] Xbhayacqbx022[address] [place], [place] [address]Dr. Chrissy Frazier Albumin/Globulin [Mass ratio] 1.0 {ratio} Normal [facility] Comment on above: Performed By: #### C MP ####[facility] Caqjweyyps266462 [address] [place], [place] [address]Dr. Chrissy Frazier ALP [Catalytic activity/Vol] 68 U/L Normal 46-116 [facility] Comment on above: Performed By: #### C MP ####[facility] Nmmgxnszwv6317[address] [place], [place] [address]Dr. Chrissy Frazier ALT [Catalytic activity/Vol] 34 U/L Normal 16-63 [facility] Comment on above: Performed By: #### C MP ####[facility] Kcvfuazuok1299[address] [place], [place] [address]Dr. Chrissy Frazier Anion gap [Moles/Vol] 17.9 mmol/L Normal [facility] Comment on above: Performed By: #### C MP ####[facility] Yqphnycrpr114162 [address] [place], [place] [address]Dr. Chrissy Frazier AST [Catalytic activity/Vol] 24 U/L Normal 15-37 [facility] Comment on above: Performed By: #### C MP ####[facility] Maellmvqjl9734[address] [place], [place] [address]Dr. Chrissy Frazier Bilirubin [Mass/Vol] 0.6 mg/dL Normal 0.2-1.0 [facility] Comment on above: Performed By: #### C MP ####[facility] Qdqsmorvfe3052 [place] [address]Dr. Chrissy Frazier Calcium [Mass/Vol] 8.8 mg/dL Normal 8.5-10.1 [facility] Comment on above: Performed By: #### C MP ####[facility] Kwepaeikcr0095 [place] [address]Dr. Chrissy Frazier Chloride [Moles/Vol] 105 mmol/L Normal 98-107 [facility] Comment on above: Performed By: #### C MP ####[facility] Pfrhogondh9403 [place] [address]Dr. Chrissy Frazier CO2 [Moles/Vol] 18.8 mmol/L Critically low 21.0-32.0 [facility] Comment on above: Performed By: #### C MP ####[facility] Eslnzixesa907[address] [place], [place] [address]Dr. Chrissy Frazier Creatinine [Mass/Vol] 1.15 mg/dL Normal 0.70-1.30 [facility] Comment on above: Performed By: #### C MP ####[facility] Igxtcdckhw959262 [address] [place], [place] [address]Dr. Chrissy Frazier EGFR-AF MOLDOVAN >60 Normal >=60 [facility] Comment on above: Performed By: #### C MP ####[facility] Juszrdumnm7[address] [place] [address]Dr. Chrissy Frazier EGFR-NON AF MOLDOVAN >60 Normal >=60 [facility] Comment on above: Performed By: #### C MP ####[facility] Qkmhxzsmut4956 [place] [address]Dr. Chrissy Frazier Globulin (S) [Mass/Vol] 3.9 g/dL Normal [facility] Comment on above: Performed By: #### C MP ####[facility] Fgulzstgvh8583 [place] [address]Dr. Chrissy Frazier Glucose [Mass/Vol] 124 mg/dL Critically high 74-106 [facility] Comment on above: Performed By: #### C MP ####[facility] Pxculkbovi2802 [place] [address]Dr. Chrissy Frazier Potassium [Moles/Vol] 3.7 mmol/L Normal 3.5-5.1 [facility] Comment on above: Performed By: #### C MP ####[facility] Gojwkciigs4467 [place] [address]Dr. Chrissy Frazier Protein [Mass/Vol] 7.7 g/dL Normal 6.4-8.2 [facility] Comment on above: Performed By: #### C MP ####[facility] Useueueijr8944[address] [place], [place] [address]Dr. Chrissy Frazier Sodium [Moles/Vol] 138 mmol/L Normal 136-145 [facility] Comment on above: Performed By: #### C MP ####[facility] Ptjbzvllay1036[address] [place], [place] [address]Dr. Chrissy Frazier Urea nitrogen [Mass/Vol] 9.0 mg/dL Normal 7.0-18.0 [facility] Comment on above: Performed By: #### C MP ####[facility] Ctbrbiqbml232[address] [place], [place] [address]Dr. Chrissy Frazier Urea nitrogen/Creatinine [Mass ratio] 7.8 mg/mg Normal [facility] Comment on above: Performed By: #### C MP ####[facility] Dmnbewgqlg878062 [address] [place], [place] [address]Dr. Chrissy Frazier AMMONIAon 07-01-2022 Ammonia (P) [Moles/Vol] 14 umol/L Normal 11-[address] [facility] Comment on above: Performed By: #### A MM ####[facility] Ysvmgdnkii9413[address] [place], [place] [address]Dr. Chrissy Frazier AMYLASEon 07-01-2022 Amylase [Catalytic activity/Vol] 32 U/L Normal 25-115 [facility] Comment on above: Performed By: #### A MY, PHOS, CMP, LIPA ####[facility] Chvirlnqpy1689 [place] [address]Dr. Chrissy Frazier CBC AUTO DIFFon 07-01-2022 BASO # 0.1 103/ul Normal 0.0-0.1 [facility] Comment on above: Performed By: #### C BC ####[facility] Kidhqvbzed0779 [place] [address]Dr. Tishrowan Freddie Basophils/100 WBC (Bld) 0.4 % Normal 0.2-2.0 [facility] Comment on above: Performed By: #### C BC ####[facility] Onpnobhusd5638[address] [place], [place] [address]Dr. Chrsisy Frazier EO # 0.2 103/ul Normal 0.0-0.[address] [facility] Comment on above: Performed By: #### C BC ####[facility] Ukpqoetfrx538962 [address] [place], [place] [address]Dr. Chrissy Frazier Eosinophils/100 WBC (Bld) 0.9 % Normal 0.9-7.[address] [facility] Comment on above: Performed By: #### C BC ####[facility] Izqcbkgesh7289[address] [place], [place] [address]Dr. Chrissy Frazier Erythrocyte distribution width (RBC) [Ratio] 13.8 % Normal 11.0-15.0 [facility] Comment on above: Performed By: #### C BC ####[facility] Elflhhbenb950[address] [place], [place] [address]Dr. Chrissy Frazier Hematocrit (Bld) [Volume fraction] 46.3 % Normal 42.0-54.0 [facility] Comment on above: Performed By: #### C BC ####[facility] Bbpjxdaypw4139[address] [place], [place] [address]Dr. Chrissy Frazier Hemoglobin (Bld) [Mass/Vol] 15.4 g/dL Normal 14.0-18.[address] [facility] Comment on above: Performed By: #### C BC ####[facility] Wygcgcgaqq8729[address] [place], [place] [address]DrNancy Frazier IG # 0.05 10e3/ul Critically high 0.00-0.03 [facility] Comment on above: Performed By: #### C BC ####[facility] Skydfoatcl8879[address] [place], [place] [address]Dr. Chrissy Frazier IG % 0.3 % Normal 0.0-0.5 [facility] Comment on above: Performed By: #### C BC ####[facility] Lqbonxezwq3981 [place] [address]DrNancy Frazier LYMPH # 2.0 103/ul Normal 1.2-3.[address] [facility] Comment on above: Performed By: #### C BC ####[facility] Yrahzgfmzf8580 [place] [address]DrNancy Frazier Lymphocytes/100 WBC (Bld) 12.9 % Critically low 20.5-60.[address] [facility] Comment on above: Performed By: #### C BC ####[facility] Ybilizzvyt220262 [address] [place], [place] [address]DrNancy Frzaier MANUAL DIFF REQ NO Normal [facility] Comment on above: Performed By: #### C BC ####[facility] Gghcdtsmuy3964 [place] [address]DrNancy Frazier MCH (RBC) [Entitic mass] 28.6 pg Normal 25.9-34.[address] [facility] Comment on above: Performed By: #### C BC ####[facility] Lwcqoysafj379[address] [place], [place] [address]DrNancy Frazier MCHC (RBC) [Mass/Vol] 33.3 g/dL Normal 29.9-35.[address] [facility] Comment on above: Performed By: #### C BC ####[facility] Pjhiiuysmf3222[address] [place], [place] [address]DrNancy Frazier MCV (RBC) [Entitic vol] 86.1 fL Normal 80.0-94.[address] [facility] Comment on above: Performed By: #### C BC ####[facility] Yeefznugob295[address] [place], [place] [address]DrNancy Frazier MONO # 0.5 103/ul Normal 0.3-0.[address] [facility] Comment on above: Performed By: #### C BC ####[facility] Htezvoplel716[address] [place], [place] [address]DrNancy Frazier Monocytes/100 WBC (Bld) 3.0 % Normal 1.7-12.[address] [facility] Comment on above: Performed By: #### C BC ####[facility] Fjujqkdspz0303 [place] [address]Dr. Chrissy Frazier NEUT # 13.0 103/ul Critically high 1.4-6.5 [facility] Comment on above: Performed By: #### C BC ####[facility] Mideygvijl0147 [place] [address]Dr. Chrissy Frazier Neutrophils/100 WBC (Bld) 82.5 % Critically high 43.0-75.[address] [facility] Comment on above: Performed By: #### C BC ####[facility] Dttbwtvakr3379[address] [place], [place] [address]Dr. Chrissy Frazier Platelet mean volume (Bld) [Entitic vol] 10.0 fL Normal 9.5-13.[address] [facility] Comment on above: Performed By: #### C BC ####[facility] Ogqlixyriq847262 [address] [place], [place] [address]Dr. Chrissy Frazier PLT 370 103/ul Normal 150-[address] [facility] Comment on above: Performed By: #### C BC ####[facility] Mpbvoagrku516[address] [place], [place] [address]Dr. Chrissy Frazier RBC 5.38 106/ul Normal 4.70-6.[address] [facility] Comment on above: Performed By: #### C BC ####[facility] Akgfnuzsln2022[address] [place], [place] [address]Dr. Chrissy Frazier WBC 15.8 103/ul Critically high 4.0-11.0 [facility] Comment on above: Performed By: #### C BC ####[facility] Vilkpgtaey904362 [address] [place], [place] [address]Dr. Chrissy Frazier CULTURE URINEon 07-01-2022 CULTURE URINE Culture Observations: No growth Normal [facility] Comment on above: Performed By: #### U RCX ####[facility] Rugiljdjyt0017[address] [place], [place] [address]Dr. Chrissy Frazier Covid-19 PCR (CVDTBH)on 06-21 SARS-CoV-2 (COVID-19) RNA RHIANNON+probe Ql (Unsp spec) Not detected Normal NOT DETECTED [facility] Comment on above: Result Comment: When [...] for this test is supported by the [employer] of [employer] and Human Service's declaration that [...] be used). Performed By: #### C VDTBH ####[facility] Tzebgrayvl8973 [place] [address]Dr. Chrissy Frazier DRUG SCREEN RAPID (URINE)on 07-01-2022 AMP Negative Normal NEGATIVE [facility] Comment on above: Performed By: #### D REYES UAMIC ####[facility] Cmncqckisv0031 [place] [id number]. Chrissy Frazier BAR Negative Normal NEGATIVE [facility] Comment on above: Performed By: #### D REYES UAMIC ####[facility] Ybifdghyuh4013 [place] [id number]. Chrissy Frazier BUP Negative Normal NEGATIVE [facility] Comment on above: Performed By: #### D REYES UAMIC ####[facility] Yjxutnvozj2569 [place] [id number]. Chrissy Frazier BZO Negative Normal NEGATIVE [facility] Comment on above: Performed By: #### D REYES UAMIC ####[facility] Mhoocrysjn6757 [place] [id number]. Chrissy Frazier LAUREN Negative Normal NEGATIVE [facility] Comment on above: Performed By: #### Amelie CHAMBERS UAMIC ####[facility] Qhemxncyua65[address] [place], [place] [address]Dr. Chrissy Frazier CUT-OFFS SEE BELOW Normal [facility] Comment on above: Result Comment: AMP [...] ng/mL Performed By: #### Amelie CHAMBERS UAMIC ####[facility] Uwwhbyhypm058[address] [place], [place] [address]Dr. Chrissy Frazier DRUG CUT HEADER DRUG CLASS TEST SYSTEM CUT-OFF CONCENTRATIONS ARE FOLLOWS: Normal [facility] Comment on above: Performed By: #### Amelie CHAMBERS UAMIC ####[facility] Rpimsggigs3525[address] [place], [place] [address]Dr. Chrissy Frazier mAMP Negative Normal NEGATIVE [facility] Comment on above: Performed By: #### Amelie CHAMBERS UAMIC ####[facility] Cidhyptxyg555[address] [place], [place] [address]Dr. Chrissy Frazier MTD Negative Normal NEGATIVE [facility] Comment on above: Performed By: #### Amelie CHAMBERS UAMIC ####[facility] Rkvfwzfguy45[address] [place], [place] [address]Dr. Chrissy Frazier OPI Negative Normal NEGATIVE [facility] Comment on above: Performed By: #### Amelie CHAMBERS UAMIC ####[facility] Shlazylasl623[address] [place], [place] [address]Dr. Chrissy Frazier OXY Negative Normal NEGATIVE [facility] Comment on above: Performed By: #### D REYES UAMIC ####[facility] Smnzmaobmt2204 [place] [address]Dr. Chrissy Frazier PCP Negative Normal NEGATIVE [facility] Comment on above: Performed By: #### D REYES, UAMIC ####[facility] Beealeolyn8655 [place] [address]Dr. Chrissy Frazier PPX Negative Normal NEGATIVE [facility] Comment on above: Performed By: #### D REYES, UAMIC ####[facility] Bdwpzuuehm5786 [place] [address]Dr. Chrissy Frazier TCA Negative Normal NEGATIVE [facility] Comment on above: Performed By: #### D REYES UAMIC ####[facility] Flasulhevu7724 [place] [address]Dr. Chrissy Frazier THC Positive Abnormal NEGATIVE [facility] Comment on above: Performed By: #### D REYES UAMIC ####[facility] Vbjsrlnzem1307 [place] [address]Dr. Chrissy Frazier LACTATE/LACTIC ACIDon 2021 Lactate [Moles/Vol] 4.4 mmol/L Critically high 0.4-1.9 [facility] Comment on above: Performed By: #### L ACT ####[facility] Pfjivhrnyj156[address] [place], [place] [address]Dr. Chrissy Frazier LIPASEon 07-01-2022 Lipase [Catalytic activity/Vol] 57.0 U/L Critically low 73.0-393.[address] [facility] Comment on above: Performed By: #### A MY, PHOS, CMP, LIPA ####[facility] Hedcswrefh2342 [place] [address]Dr. Chrissy Frazier PHOSPHORUSon 07-01-2022 Phosphate [Mass/Vol] 1.4 mg/dL Critically low 2.6-4.[address] [facility] Comment on above: Performed By: #### A MY, PHOS, CMP, LIPA ####[facility] Qeruivvhbh9100[address] [place], [place] [address]Dr. Chrissy Frazier PROF 14(COMP METB)on 022 Albumin [Mass/Vol] 4.2 g/dL Normal 3.4-5.0 [facility] Comment on above: Performed By: #### A MY, PHOS, CMP, LIPA ####[facility] Ibwwcndlnh4051 [place] [address]Dr. Chrissy Frazier Albumin/Globulin [Mass ratio] 1.1 {ratio} Normal [facility] Comment on above: Performed By: #### A MY, PHOS, CMP, LIPA ####[facility] Hjvhnawrsr2431 [place] [address]Dr. Chrissy Frazier ALP [Catalytic activity/Vol] 73 U/L Normal 46-[address] [facility] Comment on above: Performed By: #### A MY, PHOS, CMP, LIPA ####[facility] Bjymnwqzsq5299[address] [place], [place] [address]Dr. Chrissy Frazier ALT [Catalytic activity/Vol] 43 U/L Normal 16-63 [facility] Comment on above: Performed By: #### A MY, PHOS, CMP, LIPA ####[facility] Fodtynhcdf723[address] [place], [place] [address]Dr. Chrissy Frazier Anion gap [Moles/Vol] 19.0 mmol/L Normal [facility] Comment on above: Performed By: #### A MY, PHOS, CMP, LIPA ####[facility] Iuemmwkqwj2215 [place] [address]Dr. Chrissy Frazier AST [Catalytic activity/Vol] 21 U/L Normal 15-37 [facility] Comment on above: Performed By: #### A MY, PHOS, CMP, LIPA ####[facility] Oirnspnsep0253 [place] [address]Dr. Chrissy Frazier Bilirubin [Mass/Vol] 0.5 mg/dL Normal 0.2-1.0 [facility] Comment on above: Performed By: #### A MY, PHOS, CMP, LIPA ####[facility] Aasxiaafxb5833[address] [place], [place] [address]Dr. Chrissy Frazier Calcium [Mass/Vol] 9.3 mg/dL Normal 8.5-10.1 [facility] Comment on above: Performed By: #### A MY, PHOS, CMP, LIPA ####[facility] Ybxdrrafvx6356 [place] [address]Dr. Chrissy Frazier Chloride [Moles/Vol] 103 mmol/L Normal 98-107 [facility] Comment on above: Performed By: #### A MY, PHOS, CMP, LIPA ####[facility] Tglbadfcsj5170 [place] [address]Dr. Chrissy Frazier CO2 [Moles/Vol] 21.1 mmol/L Normal 21.0-32.0 [facility] Comment on above: Performed By: #### A MY, PHOS, CMP, LIPA ####[facility] Joknclpyns68[address] [place], [place] [address]Dr. Chrissy Frazier Creatinine [Mass/Vol] 1.44 mg/dL Critically high 0.70-1.30 [facility] Comment on above: Performed By: #### A MY, PHOS, CMP, LIPA ####[facility] Tqgrkhwrwi797[address] [place], [place] [address]Dr. Chrissy Frazier EGFR-AF MOLDOVAN >60 Normal >=60 [facility] Comment on above: Performed By: #### A MY, PHOS, CMP, LIPA ####[facility] Ibnxfwfmcw4150 [place] [address]Dr. Chrissy Frazier EGFR-NON AF MOLDOVAN 57 mL/min/1.73m2 Critically low >=[address] [facility] Comment on above: Performed By: #### A MY, PHOS, CMP, LIPA ####[facility] Upphzlbvag7208 [place] [address]Dr. Chrissy Frazier Globulin (S) [Mass/Vol] 3.9 g/dL Normal [facility] Comment on above: Performed By: #### A MY, PHOS, CMP, LIPA ####[facility] Rpvgqhdrok1653 [place] [address]Dr. Chrissy Frazier Glucose [Mass/Vol] 148 mg/dL Critically high 74-106 [facility] Comment on above: Performed By: #### A MY, PHOS, CMP, LIPA ####[facility] Oddcgqdwzt3031 [place] [address]Dr. Chrissy Frazier Potassium [Moles/Vol] 3.1 mmol/L Critically low 3.5-5.[address] [facility] Comment on above: Performed By: #### A MY, PHOS, CMP, LIPA ####[facility] Vnisfrgbhb5957 [place] [address]Dr. Chrissy Frazier Protein [Mass/Vol] 8.1 g/dL Normal 6.4-8.2 [facility] Comment on above: Performed By: #### A MY, PHOS, CMP, LIPA ####[facility] Osmfgxbwio8003 [place] [address]Dr. Chrissy Frazier Sodium [Moles/Vol] 140 mmol/L Normal 136-145 [facility] Comment on above: Performed By: #### A MY, PHOS, CMP, LIPA ####[facility] Lwyfbwvdrf4[address] [place] [address]Dr. Chrissy Frazier Urea nitrogen [Mass/Vol] 10.0 mg/dL Normal 7.0-18.[address] [facility] Comment on above: Performed By: #### A MY, PHOS, CMP, LIPA ####[facility] Zzxncmuoqa48[address] [place] [address]Dr. Chrissy Frazier Urea nitrogen/Creatinine [Mass ratio] 6.9 mg/mg Normal [facility] Comment on above: Performed By: #### A MY, PHOS, CMP, LIPA ####[facility] Lhorjamdtu[address] [place] [address]Dr. Chrissy Frazier UA RANDOM W/MICROSCOPICon BACTERIA TRACE Abnormal NONE SEEN [facility] Comment on above: Performed By: #### D SORAYA CHAMBERSMIC ####[facility] Plfgpkozfz6007 [place] [address]Dr. Tishrowan Frazier Bilirubin Ql (U) Negative Normal NEGATIVE The [facility] Comment on above: Performed By: #### D REYES UAMIC ####[facility] Kquzdoqtnx147[address] [place], [place] [address]Dr. Tishrowan Freddie CAST NONE SEEN Normal NONE SEEN [facility] Comment on above: Performed By: #### Amelie CHAMBERS UAMIC ####[facility] Zmznnfchjy698[address] [place], [place] [address]Dr. Chrissy Frazier Clarity (U) CLEAR Normal CLEAR [facility] Comment on above: Performed By: #### Amelie CHAMBERS UAMIC ####[facility] Htqxsgyabv839[address] [place], [place] [address]Dr. Chrissy Frazier Color (U) YELLOW Normal YELLOW [facility] Comment on above: Performed By: #### Amelie CHAMBERS UAMIC ####[facility] Uchqdqqgrm834562 [address] [place], [place] [address]Dr. Chrissy Frazier Crystals LM Nom (Urine sed) NONE SEEN Normal NONE SEEN [facility] Comment on above: Performed By: #### Amelie CHAMBERS UAMIC ####[facility] Zydpjktfqh2905[address] [place], [place] [address]Dr. Chrissy Frazier Epithelial cells LM Ql (Urine sed) RARE Normal NONE SEEN /RARE [facility] Comment on above: Performed By: #### Amelie CHAMBERS UAMIC ####[facility] Yozfzuusbr814[address] [place], [place] [address]Dr. Chrissy Frazier Glucose Ql (U) Negative Normal NEGATIVE The [facility] Comment on above: Performed By: #### Amelie CHAMBERS UAMIC ####[facility] Zwiiqzzlgd200362 [address] [place], [place] [address]Dr. Chrissy Frazier Hemoglobin Ql (U) Negative Normal NEGATIVE The [facility] Comment on above: Performed By: #### Amelie CHAMBERS UAMIC ####[facility] Opwnnuibue896062 [address] [place], [place] [address]Dr. Chrissy Frazier Ketones Ql (U) 40 mg/dl Abnormal NEGATIVE [facility] Comment on above: Performed By: #### Amelie CHAMBERS UAMIC ####[facility] Askandkdhw987262 [address] [place], [place] [address]Dr. Chrissy Frazier LEUKOCYTES Negative Normal NEGATIVE [facility] Comment on above: Performed By: #### Amelie CHAMBERS UAMIC ####[facility] Valvhjskil[address] [place] [address]Dr. Chrissy Frazier MUCOUS MODERATE Abnormal NONE SEEN [facility] Comment on above: Performed By: #### Amelie CHAMBERS UAMIC ####[facility] Rjenbezwty1658 [place] [address]Dr. Chrissy Frazier Nitrite Ql (U) Negative Normal NEGATIVE The [facility] Comment on above: Performed By: #### D REYES UAMIC ####[facility] Hxkikhduxz400[address] [place], [place] [address]Dr. Chrissy Frazier pH (U) 6.0 [pH] Normal 5-[address] [facility] Comment on above: Performed By: #### Amelie CHAMBERS UAMIC ####[facility] Klwheyldod5266 [place] [address]Dr. Chrissy Frazier RBC 0-2 Normal 0-[address] [facility] Comment on above: Performed By: #### Amelie CHAMBERS UAMIC ####[facility] Vlduqqdoel958962 [address] [place], [place] [address]Dr. Chrissy Frazier SPEC GRAVITY 1.020 Normal 1.005-<=1.025 [facility] Comment on above: Performed By: #### Amelie CHAMBERS UAMIC ####[facility] Sowfipusst3707[address] [place], [place] [address]Dr. Chrissy Frazier UA PROTEIN Negative Normal NEGATIVE/ TRACE [facility] Comment on above: Performed By: #### Amelie CHAMBERS UAMIC ####[facility] Jyzeeaptfr695[address] [place], [place] [address]Dr. Chrissy Frazier Urobilinogen Qn (U) 0.2 {Estrellita'U}/dL Normal 0.2 - 1. [address] [facility] Comment on above: Performed By: #### Amelie CHAMBERS UAMIC ####[facility] Pbtgdupzbl407262 [address] [place], [place] [address]Dr. Chrissy Frazier WBC 0-2 Abnormal NONE SEEN [facility] Comment on above: Performed By: #### Amelie CHAMBERS UAMIC ####[facility] Onqwffnjye7965 [place], [place] [address]Ns. Chrissy Frazier XR ABD FLAT UP_PA Enoch 07-01 XR ABD FLAT UP_PA CH Normal [facility] Covid-19 PCR (CVDTB)on SARS-CoV-2 (COVID-19) RNA RHIANNON+probe Ql (Unsp spec) Not detected Normal NOT DETECTED [facility] Comment on above: Result Comment: When [...] for this test is supported by the [employer] of Health and Human Service's declaration that [...] longer be used). Performed By: #### C [facility] ####[facility] Eiommjxmqq6365 [place], [place] [address]Zc. Chrissy Frazier SYMPTOMATIC COVID-19 ANTIGEN on 04-23-2022 EUA Statement SEE BELOW Normal The [facility] Comment on above: Result Comment: This test [...] revoked sooner. Performed By: #### C VDAGS ####[facility] Vjbhxvpsao5811[address] [place], [place] [address]Dr. Chrissy Frazier SARS-CoV-2 (COVID-19) RNA RHIANNON+probe Ql (Unsp spec) Negative Normal NEGATIVE [facility] Comment on above: Performed By: #### C VDAGS ####[facility] Qmumqyiwuf022862 [address] [place], [place] [address]Dr. Chrissy Frazier AMYLASEon 04-04-2022 Amylase [Catalytic activity/Vol] 40 U/L Normal 25-[address] [facility] Comment on above: Performed By: #### C MPTERRENCE, LIPA ####[facility] Mqbkpxtetz9418[address] [place], [place] [address]Dr. Chrissy Frazier CBC AUTO DIFFon 04-04-2022 BASO # 0.1 103/ul Normal 0.0-0.1 [facility] Comment on above: Performed By: #### C BC ####[facility] Bqwuicecds3724[address] [place], [place] [address]Dr. Chrissy Frazier Basophils/100 WBC (Bld) 0.4 % Normal 0.2-2.[address] [facility] Comment on above: Performed By: #### C BC ####[facility] Xqsjuknvlv579062 [address] [place], [place] [address]Dr. Chrissy Frazier EO # 0.1 103/ul Normal 0.0-0.[address] [facility] Comment on above: Performed By: #### C BC ####[facility] Jvvlcglswb116362 [address] [place], [place] [address]Dr. Chrissy Frazier Eosinophils/100 WBC (Bld) 0.6 % Critically low 0.9-7.[address] [facility] Comment on above: Performed By: #### C BC ####[facility] Mtlniydfpp417362 [address] [place], [place] [address]Dr. Chrissy Frazier Erythrocyte distribution width (RBC) [Ratio] 13.2 % Normal 11.0-15.0 [facility] Comment on above: Performed By: #### C BC ####[facility] Mwkfczsjso0667 [place] [address]Dr. Chrissy Frazier Hematocrit (Bld) [Volume fraction] 48.3 % Normal 42.0-54.0 [facility] Comment on above: Performed By: #### C BC ####[facility] Gfgtroxbas9135 [place] [address]Dr. Chrissy Frazier Hemoglobin (Bld) [Mass/Vol] 16.1 g/dL Normal 14.0-18.0 [facility] Comment on above: Performed By: #### C BC ####[facility] Qgxvxhrjez099662 [address] [place], [place] [address]Dr. Chrissy Frazier IG # 0.12 10e3/ul Critically high 0.00-0.03 [facility] Comment on above: Performed By: #### C BC ####[facility] Kinzqtxfdo763862 [address] [place], [place] [address]Dr. Tishrowan Frazier IG % 0.9 % Critically high 0.0-0.5 [facility] Comment on above: Performed By: #### C BC ####[facility] Qaueftnehe2960[address] [place], [place] [address]Dr. Chrissy Freddie LYMPH # 3.0 103/ul Normal 1.2-3.8 [facility] Comment on above: Performed By: #### C BC ####[facility] Qpnxeicpog779162 [address] [place], [place] [address]DrNancy Tishrowan Frazier Lymphocytes/100 WBC (Bld) 22.3 % Normal 20.5-60.0 [facility] Comment on above: Performed By: #### C BC ####[facility] Wtorkmlwoa049162 [address] [place], [place] [address]Dr. Tishrowan Frazier MANUAL DIFF REQ NO Normal [facility] Comment on above: Performed By: #### C BC ####[facility] Wgwinhesoe124362 [address] [place], [place] [address]DrNancy Chrissy Freddie MCH (RBC) [Entitic mass] 28.6 pg Normal 25.9-34.0 [facility] Comment on above: Performed By: #### C BC ####[facility] Iuljvpfubv1275 [place] [id number]. Tishrowan Frazier MCHC (RBC) [Mass/Vol] 33.3 g/dL Normal 29.9-35.[address] [facility] Comment on above: Performed By: #### C BC ####[facility] Iivrxiiirb9723 [place] [id number]. Chrissy Frazier MCV (RBC) [Entitic vol] 85.9 fL Normal 80.0-94.[address] [facility] Comment on above: Performed By: #### C BC ####[facility] Zluysyvrpx348[address] [place], [place] [address]Dr. Chrissy Frazier MONO # 0.8 103/ul Normal 0.3-0.[address] [facility] Comment on above: Performed By: #### C BC ####[facility] Wysabfgimb837862 [address] [place], [place] [address]Dr. Chrissy Frazier Monocytes/100 WBC (Bld) 5.7 % Normal 1.7-12.[address] [facility] Comment on above: Performed By: #### C BC ####[facility] Jrudnhfqpl064[address] [place], [place] [address]Dr. Chrissy Frazier NEUT # 9.3 103/ul Critically high 1.4-6.5 [facility] Comment on above: Performed By: #### C BC ####[facility] Hebsruzcbu375[address] [place], [place] [address]Dr. Chrissy Frazier Neutrophils/100 WBC (Bld) 70.1 % Normal 43.0-75.[address] [facility] Comment on above: Performed By: #### C BC ####[facility] Frmvibdnut2924[address] [place], [place] [address]Dr. Chrissy Frazier Platelet mean volume (Bld) [Entitic vol] 10.3 fL Normal 9.5-13.[address] [facility] Comment on above: Performed By: #### C BC ####[facility] Zgqzqotgzy877[address] [place], [place] [address]Dr. Chrissy Frazier PLT 461 103/ul Critically high 150-450 [facility] Comment on above: Performed By: #### C BC ####[facility] Tggtepmmya2423 [place] [address]Dr. Tishrowan Freddie RBC 5.62 106/ul Normal 4.70-6.10 [facility] Comment on above: Performed By: #### C BC ####[facility] Rulhsblorb9283 [place] [address]Dr. Chrissy Frazier WBC 13.3 103/ul Critically high 4.0-11.0 [facility] Comment on above: Performed By: #### C BC ####[facility] Aetaubvlll3545 [place] [address]Dr. Chrissy Frazier LIPASEon 04-04-2022 Lipase [Catalytic activity/Vol] 118.0 U/L Normal 73.0-393.0 [facility] Comment on above: Performed By: #### C MP, TERRENCE, LIPA ####[facility] Qepaloljug6701 [place] [address]Dr. Chrissy Frazier PROF 14(COMP METB)on 022 Albumin [Mass/Vol] 4.3 g/dL Normal 3.4-5.0 [facility] Comment on above: Performed By: #### C MP, TERRENCE, LIPA ####[facility] Qjbuvlzikn180262 [address] [place], [place] [address]Dr. Chrissy Frazier Albumin/Globulin [Mass ratio] 1.0 {ratio} Normal [facility] Comment on above: Performed By: #### C MP, TERRENCE, LIPA ####[facility] Kvitlvvxqi1343 [place] [address]Dr. Chrissy Frazier ALP [Catalytic activity/Vol] 84 U/L Normal 46-[address] [facility] Comment on above: Performed By: #### C MP, TERRENCE, LIPA ####[facility] Epshrituja5695 [place] [address]Dr. Chrissy Frazier ALT [Catalytic activity/Vol] 81 U/L Critically high 16-[address] [facility] Comment on above: Performed By: #### C MP, TERRENCE, LIPA ####[facility] Yxqbtwuvuh8[address] [place], [place] [address]Dr. Chrissy Frazier Anion gap [Moles/Vol] 17.9 mmol/L Normal [facility] Comment on above: Performed By: #### C TERRENCE ADAIR, LIPA ####[facility] Zmlcmdyazb0048 [place] [address]Dr. Chrissy Frazier AST [Catalytic activity/Vol] 25 U/L Normal 15-[address] [facility] Comment on above: Performed By: #### C MANA TERRENCE, LIPA ####[facility] Xbainwtygj4985[address] [place], [place] [address]Dr. Chrissy Frazier Bilirubin [Mass/Vol] 0.5 mg/dL Normal 0.2-1.[address] [facility] Comment on above: Performed By: #### C TERRENCE ADAIR, LIPA ####[facility] Uzqxamshxd2220[address] [place], [place] [address]Dr. Chrissy Frazier Calcium [Mass/Vol] 9.6 mg/dL Normal 8.5-10.1 [facility] Comment on above: Performed By: #### C MANA TERRENCE, LIPA ####[facility] Wrjjmoplje7618[address] [place], [place] [address]Dr. Chrissy Frazier Chloride [Moles/Vol] 101 mmol/L Normal 98-[address] [facility] Comment on above: Performed By: #### C MANA TERRENCE, LIPA ####[facility] Gocrsjpcza2938[address] [place], [place] [address]Dr. Chrissy Frazier CO2 [Moles/Vol] 18.6 mmol/L Critically low 21.0-32.[address] [facility] Comment on above: Performed By: #### C MANA TERRENCE, LIPA ####[facility] Dbwairazgh285[address] [place], [place] [address]Dr. Chrissy Frazier Creatinine [Mass/Vol] 1.39 mg/dL Critically high 0.70-1.30 [facility] Comment on above: Performed By: #### C MP, TERRENCE, LIPA ####[facility] Sfrvmkotdb9587[address] [place], [place] [address]Dr. Chrissy Frazier EGFR-AF MOLDOVAN >60 Normal >=60 [facility] Comment on above: Performed By: #### C MP, TERRENCE, LIPA ####[facility] Grvzzezzvl4507 [place] [address]Dr. Chrissy Frazier EGFR-NON AF MOLDOVAN 59 mL/min/1.73m2 Critically low >=60 [facility] Comment on above: Performed By: #### C MP, TERRENCE, LIPA ####[facility] Mynerauncl7215 [place] [address]Dr. Chrissy Frazier Globulin (S) [Mass/Vol] 4.3 g/dL Normal [facility] Comment on above: Performed By: #### C MP, TERRENCE, LIPA ####[facility] Rekivgeomq0642 [place] [address]Dr. Chrissy Frazier Glucose [Mass/Vol] 132 mg/dL Critically high 74-106 [facility] Comment on above: Performed By: #### C MP, TERRENCE, LIPA ####[facility] Bjbxygaguv3490[address] [place], [place] [address]Dr. Chrissy Frazier Potassium [Moles/Vol] 3.5 mmol/L Normal 3.5-5.1 [facility] Comment on above: Performed By: #### C MP, TERRENCE, LIPA ####[facility] Wwpqqvonzj7615[address] [place], [place] [address]Dr. Chrissy Frazier Protein [Mass/Vol] 8.6 g/dL Critically high 6.4-8.2 [facility] Comment on above: Performed By: #### C MP, TERRENCE, LIPA ####[facility] Kktpfobiux3409 [place] [address]Dr. Chrissy Frazier Sodium [Moles/Vol] 134 mmol/L Critically low 136-145 [facility] Comment on above: Performed By: #### C MP, TERRENCE, LIPA ####[facility] Spagfitfhi2219 [place] [address]Dr. Chrissy Frazier Urea nitrogen [Mass/Vol] 8.0 mg/dL Normal 7.0-18.0 [facility] Comment on above: Performed By: #### C MP, TERRENCE, LIPA ####[facility] Lqhtdbablc459[address] [place], [place] [address]Dr. Chrissy Frazier Urea nitrogen/Creatinine [Mass ratio] 5.8 mg/mg Normal [facility] Comment on above: Performed By: #### C TERRENCE ADAIR LIPA ####[facility] Jroqhffbhs3017 [place] [address]Dr. Chrissy Frazier XR ABD FLAT UP_PA Enoch 04-04 XR ABD FLAT UP_PA CH Normal [facility] AMMONIAon 03-31-2022 Ammonia (P) [Moles/Vol] 19 umol/L Normal 11-[address] [facility] Comment on above: Performed By: #### A MM ####[facility] Jwhnydyuok360[address] [place], [place] [address]Dr. Chrissy Frazier CBC AUTO DIFFon 03-31-2022 BASO # 0.1 103/ul Normal 0.0-0.[address] [facility] Comment on above: Performed By: #### C BC ####[facility] Qxqztezzkh506362 [address] [place], [place] [address]Dr. Chrissy Frazier Basophils/100 WBC (Bld) 0.5 % Normal 0.2-2.[address] [facility] Comment on above: Performed By: #### C BC ####[facility] Pohttcgqbo3069[address] [place], [place] [address]DrNancy Frazier EO # 0.2 103/ul Normal 0.0-0.[address] [facility] Comment on above: Performed By: #### C BC ####[facility] Umvwspkvne701[address] [place], [place] [address]Dr. Chrissy Frazier Eosinophils/100 WBC (Bld) 1.6 % Normal 0.9-7.[address] [facility] Comment on above: Performed By: #### C BC ####[facility] Auiihjjxnr917862 [address] [place], [place] [address]Dr. Chrissy Frazier Erythrocyte distribution width (RBC) [Ratio] 13.2 % Normal 11.0-15.[address] [facility] Comment on above: Performed By: #### C BC ####[facility] Uvfsesfmls6745[address] [place], [place] [address]Dr. Chrissy Frazier Hematocrit (Bld) [Volume fraction] 42.1 % Normal 42.0-54.[address] [facility] Comment on above: Performed By: #### C BC ####[facility] Lhzzdrhhtt2230 [place] [address]Dr. Chrissy Frazier Hemoglobin (Bld) [Mass/Vol] 14.3 g/dL Normal 14.0-18.0 [facility] Comment on above: Performed By: #### C BC ####[facility] Hjlmoicaul633[address] [place], [place] [address]Dr. Chrissy Frazier IG # 0.05 10e3/ul Critically high 0.00-0.03 [facility] Comment on above: Performed By: #### C BC ####[facility] Hnetzqnupb722162 [address] [place], [place] [address]Dr. Chrissy Frazier IG % 0.5 % Normal 0.0-0.5 [facility] Comment on above: Performed By: #### C BC ####[facility] Bwgcrcktfn3915[address] [place], [place] [address]Dr. Chrissy Frazier LYMPH # 2.9 103/ul Normal 1.2-3.[address] [facility] Comment on above: Performed By: #### C BC ####[facility] Zjrebdewey834162 [address] [place], [place] [address]Dr. Chrissy Frazier Lymphocytes/100 WBC (Bld) 25.7 % Normal 20.5-60.0 [facility] Comment on above: Performed By: #### C BC ####[facility] Ssurnukcix982162 [address] [place], [place] [address]Dr. Chrissy Frazier MANUAL DIFF REQ NO Normal [facility] Comment on above: Performed By: #### C BC ####[facility] Wmeuwwkqnv5460[address] [place], [place] [address]Dr. Chrissy Frazier MCH (RBC) [Entitic mass] 29.2 pg Normal 25.9-34.[address] [facility] Comment on above: Performed By: #### C BC ####[facility] Emiboxpubd2917[address] [place], [place] [address]Dr. Chrissy Frazier MCHC (RBC) [Mass/Vol] 34.0 g/dL Normal 29.9-35.[address] [facility] Comment on above: Performed By: #### C BC ####[facility] Fwtqlcxubn2078 [place] [address]DrNancy Frazier MCV (RBC) [Entitic vol] 85.9 fL Normal 80.0-94.[address] [facility] Comment on above: Performed By: #### C BC ####[facility] Tdroobpfgz9360[address] [place], [place] [address]DrNancy Frazier MONO # 1.0 103/ul Critically high 0.3-0.8 [facility] Comment on above: Performed By: #### C BC ####[facility] Wotlqarurn706[address] [place], [place] [address]DrNancy Frazier Monocytes/100 WBC (Bld) 8.6 % Normal 1.7-12.[address] [facility] Comment on above: Performed By: #### C BC ####[facility] Wpdfmpmglv836[address] [place], [place] [address]DrNancy Frazier NEUT # 7.0 103/ul Critically high 1.4-6.5 [facility] Comment on above: Performed By: #### C BC ####[facility] Vflrlxkqdg9650[address] [place], [place] [address]DrNancy Frazier Neutrophils/100 WBC (Bld) 63.1 % Normal 43.0-75.[address] [facility] Comment on above: Performed By: #### C BC ####[facility] Acqswwbpns4987[address] [place], [place] [address]DrNancy Frazier Platelet mean volume (Bld) [Entitic vol] 10.4 fL Normal 9.5-13.[address] [facility] Comment on above: Performed By: #### C BC ####[facility] Gmufhfmcdo8280[address] [place], [place] [address]DrNancy Frazier PLT 308 103/ul Normal 150-[address] [facility] Comment on above: Performed By: #### C BC ####[facility] Afknipbkgy590[address] [place], [place] [address]DrNancy Frazier RBC 4.90 106/ul Normal 4.70-6.[address] [facility] Comment on above: Performed By: #### C BC ####[facility] Ebhrgrkwob1552 [place] [id number]. Chrissy Frazier WBC 11.1 103/ul Critically high 4.0-11.0 [facility] Comment on above: Performed By: #### C BC ####[facility] Dpwvmzcmkt6015 [place] [address]DrNancy Frazier PROF 14(COMP METB)on 022 Albumin [Mass/Vol] 3.5 g/dL Normal 3.4-5.0 [facility] Comment on above: Performed By: #### C MP ####[facility] Mcbclfjgnv701[address] [place], [place] [address]DrNancy Frazier Albumin/Globulin [Mass ratio] 0.9 {ratio} Normal [facility] Comment on above: Performed By: #### C MP ####[facility] Ulrnooxwor947362 [address] [place], [place] [address]Dr. Chrissy Frazier ALP [Catalytic activity/Vol] 68 U/L Normal 46-[address] [facility] Comment on above: Performed By: #### C MP ####[facility] Trormxojyd506[address] [place], [place] [address]DrNancy Frazier ALT [Catalytic activity/Vol] 113 U/L Critically high 16-[address] [facility] Comment on above: Performed By: #### C MP ####[facility] Zxsddphufo0147[address] [place], [place] [address]DrNancy Frazier Anion gap [Moles/Vol] 14.0 mmol/L Normal [facility] Comment on above: Performed By: #### C MP ####[facility] Axwbdpwxjm2928[address] [place], [place] [address]DrNancy Frazier AST [Catalytic activity/Vol] 31 U/L Normal 15-37 [facility] Comment on above: Performed By: #### C MP ####[facility] Bwpmftovdj1227[address] [place], [place] [address]DrNancy Frazier Bilirubin [Mass/Vol] 0.6 mg/dL Normal 0.2-1.0 [facility] Comment on above: Performed By: #### C MP ####[facility] Tnokmaoamu7082 [place] [address]Dr. Chrissy Frazier Calcium [Mass/Vol] 8.4 mg/dL Critically low 8.5-10.[address] [facility] Comment on above: Performed By: #### C MP ####[facility] Fivlbzmyik0927 [place] [address]Dr. Chrissy Frazier Chloride [Moles/Vol] 101 mmol/L Normal 98-107 [facility] Comment on above: Performed By: #### C MP ####[facility] Zalfvmykpa[address] [place], [place] [address]Dr. Chrissy Frazier CO2 [Moles/Vol] 24.2 mmol/L Normal 21.0-32.0 [facility] Comment on above: Performed By: #### C MP ####[facility] Ayehowhdiq534[address] [place], [place] [address]Dr. Chrissy Freddie Creatinine [Mass/Vol] 1.15 mg/dL Normal 0.70-1.30 [facility] Comment on above: Performed By: #### C MP ####[facility] Tysmwmcnai20[address] [place], [place] [address]Dr. Chrissy Freddie EGFR-AF MOLDOVAN >60 Normal >=60 [facility] Comment on above: Performed By: #### C MP ####[facility] Ysjbymfhki7392 [place] [address]Dr. Tishrowan Freddie EGFR-NON AF MOLDOVAN >60 Normal >=60 [facility] Comment on above: Performed By: #### C MP ####[facility] [address]zgqqqosab[address] [place] [address]Dr. Chrissy Frazier Globulin (S) [Mass/Vol] 3.8 g/dL Normal [facility] Comment on above: Performed By: #### C MP ####[facility] Rezjxbcluc26[address] [place], [place] [address]Dr. Chrissy Frazier Glucose [Mass/Vol] 100 mg/dL Normal 74-106 [facility] Comment on above: Performed By: #### C MP ####[facility] Xowjfjstjq4119 [place] [address]Dr. Chrissy Freddie Potassium [Moles/Vol] 3.2 mmol/L Critically low 3.5-5.1 [facility] Comment on above: Performed By: #### C MP ####[facility] Siynstuzpi7847[address] [place], [place] [address]Dr. Chrissy Frazier Protein [Mass/Vol] 7.3 g/dL Normal 6.4-8.2 [facility] Comment on above: Performed By: #### C MP ####[facility] Swqulswwum1938[address] [place], [place] [address]Dr. Chrissy Frazier Sodium [Moles/Vol] 136 mmol/L Normal 136-145 [facility] Comment on above: Performed By: #### C MP ####[facility] Peyyskulsi085[address] [place], [place] [address]Dr. Chrissy Frazier Urea nitrogen [Mass/Vol] 13.0 mg/dL Normal 7.0-18.0 [facility] Comment on above: Performed By: #### C MP ####[facility] Vytbqdxqdz915[address] [place], [place] [address]Dr. Chrissy Frazier Urea nitrogen/Creatinine [Mass ratio] 11.3 mg/mg Normal [facility] Comment on above: Performed By: #### C MP ####[facility] Vmkvsmzhyy887[address] [place], [place] [address]Dr. Chrissy Frazier AMMONIAon 03-30-2022 Ammonia (P) [Mass/Vol] ug/dL Critically low 11-32 [facility] Comment on above: Performed By: #### A MM ####[facility] Brsbztxdpo7812[address] [place], [place] [address]Dr. Chrissy Frazier CBC AUTO DIFFon 03-30-2022 BASO # 0.1 103/ul Normal 0.0-0.1 [facility] Comment on above: Performed By: #### C BC ####[facility] Xnweeibntm769[address] [place], [place] [address]Dr. Chrissy Frazier Basophils/100 WBC (Bld) 0.5 % Normal 0.2-2.0 [facility] Comment on above: Performed By: #### C BC ####[facility] Wcaoxyswsg1755[address] [place], [place] [address]Dr. Chrissy Frazier EO # 0.1 103/ul Normal 0.0-0.7 [facility] Comment on above: Performed By: #### C BC ####[facility] Mlairxocbz833[address] [place], [place] [address]Dr. Chrissy Frazier Eosinophils/100 WBC (Bld) 1.1 % Normal 0.9-7.0 [facility] Comment on above: Performed By: #### C BC ####[facility] Rjthebirjx767[address] [place], [place] [address]Dr. Chrissy Frazier Erythrocyte distribution width (RBC) [Ratio] 13.4 % Normal 11.0-15.0 [facility] Comment on above: Performed By: #### C BC ####[facility] Avalvxkspl719262 [address] [place], [place] [address]Dr. Chrissy Frazier Hematocrit (Bld) [Volume fraction] 45.8 % Normal 42.0-54.0 [facility] Comment on above: Performed By: #### C BC ####[facility] Kaffoshrnx5767[address] [place], [place] [address]Dr. Chrissy Frazier Hemoglobin (Bld) [Mass/Vol] 14.9 g/dL Normal 14.0-18.0 [facility] Comment on above: Performed By: #### C BC ####[facility] Czyjbjkrar4216[address] [place], [place] [address]Dr. Chrissy Frazier IG # 0.05 10e3/ul Critically high 0.00-0.03 [facility] Comment on above: Performed By: #### C BC ####[facility] Gkpfsmprnc827562 [address] [place], [place] [address]Dr. Chrissy Farzier IG % 0.5 % Normal 0.0-0.5 [facility] Comment on above: Performed By: #### C BC ####[facility] Emjpewplfo186762 [address] [place], [place] [address]DrNancy Frazier LYMPH # 3.0 103/ul Normal 1.2-3.[address] [facility] Comment on above: Performed By: #### C BC ####[facility] Zwbxzsbkbi2491 [place] [id number] Frazier Lymphocytes/100 WBC (Bld) 30.2 % Normal 20.5-60.[address] [facility] Comment on above: Performed By: #### C BC ####[facility] Ugxkfqorjz555762 [address] [place], [place] [address]DrNancy Frazier MANUAL DIFF REQ NO Normal [facility] Comment on above: Performed By: #### C BC ####[facility] Mfdosrneuq9170 [place] [address]DrNancy Frazier MCH (RBC) [Entitic mass] 28.4 pg Normal 25.9-34.[address] [facility] Comment on above: Performed By: #### C BC ####[facility] Rlifyyxgyg263762 [address] [place], [place] [address]DrNancy Frazier MCHC (RBC) [Mass/Vol] 32.5 g/dL Normal 29.9-35.[address] [facility] Comment on above: Performed By: #### C BC ####[facility] Cfcggynczh701162 [address] [place], [place] [address]DrNancy Frazier MCV (RBC) [Entitic vol] 87.4 fL Normal 80.0-94.[address] [facility] Comment on above: Performed By: #### C BC ####[facility] Lbuytufyez014562 [address] [place], [place] [address]DrNancy Frazier MONO # 0.8 103/ul Normal 0.3-0.[address] [facility] Comment on above: Performed By: #### C BC ####[facility] Mhcsqewlsj7075[address] [place], [place] [address]DrNancy Frazier Monocytes/100 WBC (Bld) 7.9 % Normal 1.7-12.[address] [facility] Comment on above: Performed By: #### C BC ####[facility] Biodebdeiv9925[address] [place], [place] [address]DrNancy Frazier NEUT # 5.9 103/ul Normal 1.4-6.5 [facility] Comment on above: Performed By: #### C BC ####[facility] Zswpntgvwx2312 [place] [address]Dr. Chrissy Frazier Neutrophils/100 WBC (Bld) 59.8 % Normal 43.0-75.0 [facility] Comment on above: Performed By: #### C BC ####[facility] Xynougpnnn687062 [address] [place], [place] [address]Dr. Chrissy Frazier Platelet mean volume (Bld) [Entitic vol] 10.1 fL Normal 9.5-13.[address] [facility] Comment on above: Performed By: #### C BC ####[facility] Riiatfzuoa545[address] [place], [place] [address]Dr. Chrissy Frazier PLT 320 103/ul Normal 150-450 [facility] Comment on above: Performed By: #### C BC ####[facility] Ohuizojizy6628[address] [place], [place] [address]Dr. Chrissy Frazier RBC 5.24 106/ul Normal 4.70-6.[address] [facility] Comment on above: Performed By: #### C BC ####[facility] Pahgaduqld4447[address] [place], [place] [address]Dr. Chrissy Frazier WBC 9.9 103/ul Normal 4.0-11.0 [facility] Comment on above: Performed By: #### C BC ####[facility] Kakiogchyf713[address] [place], [place] [address]Dr. Chrissy Frazier PROF 14(COMP METB)on 022 Albumin [Mass/Vol] 3.9 g/dL Normal 3.4-5.0 [facility] Comment on above: Performed By: #### C MP ####[facility] Fkrspkzhjs512862 [address] [place], [place] [address]DrNancy Frazier Albumin/Globulin [Mass ratio] 1.1 {ratio} Normal [facility] Comment on above: Performed By: #### C MP ####[facility] Vrhkxovkkf882362 [address] [place], [place] [address]Dr. Chrissy Frazier ALP [Catalytic activity/Vol] 88 U/L Normal 46-116 [facility] Comment on above: Performed By: #### C MP ####[facility] Ukvcocyyza2250 [place] [address]Dr. Chrissy Frazier ALT [Catalytic activity/Vol] 161 U/L Critically high 16-63 [facility] Comment on above: Performed By: #### C MP ####[facility] Lbwzxuegqs9622 [place] [address]Dr. Chrissy Frazier Anion gap [Moles/Vol] 12.3 mmol/L Normal [facility] Comment on above: Performed By: #### C MP ####[facility] Jzhxafcnmo1633[address] [place], [place] [address]Dr. Chrissy Frazier AST [Catalytic activity/Vol] 64 U/L Critically high 15-37 [facility] Comment on above: Performed By: #### C MP ####[facility] Sdttqtvagk3422[address] [place], [place] [address]Dr. Chrissy Frazier Bilirubin [Mass/Vol] 0.8 mg/dL Normal 0.2-1.0 [facility] Comment on above: Performed By: #### C MP ####[facility] Hbmajunuot602162 [address] [place], [place] [address]Dr. Chrissy Frazier Calcium [Mass/Vol] 8.4 mg/dL Critically low 8.5-10.1 [facility] Comment on above: Performed By: #### C MP ####[facility] Anexqcfnaq8425[address] [place], [place] [address]Dr. Chrissy Frazier Chloride [Moles/Vol] 103 mmol/L Normal 98-[address] [facility] Comment on above: Performed By: #### C MP ####[facility] Ibdpdubyoh5950[address] [place], [place] [address]Dr. Chrissy Frazier CO2 [Moles/Vol] 26.5 mmol/L Normal 21.0-32.0 [facility] Comment on above: Performed By: #### C MP ####[facility] Awbrkmppqw126862 [address] [place], [place] [address]Dr. Chrissy Freddie Creatinine [Mass/Vol] 1.24 mg/dL Normal 0.70-1.30 [facility] Comment on above: Performed By: #### C MP ####[facility] Muhrxljojb5[address] [place] [address]Dr. Chrissy Frazier EGFR-AF MOLDOVAN >60 Normal >=60 [facility] Comment on above: Performed By: #### C MP ####[facility] Uyzccbiboi5226 [place] [id number]. Chrissy Freddie EGFR-NON AF MOLDOVAN >60 Normal >=60 [facility] Comment on above: Performed By: #### C MP ####[facility] Bbnstfgkaa9971 [place] [id number]. Chrissy Freddie Globulin (S) [Mass/Vol] 3.7 g/dL Normal [facility] Comment on above: Performed By: #### C MP ####[facility] Leqrmiexal3424 [place] [address]Dr. Tishrowan Freddie Glucose [Mass/Vol] 108 mg/dL Critically high 74-106 [facility] Comment on above: Performed By: #### C MP ####[facility] Pjawkffanj2043 [place] [address]Dr. Chrissy Freddie Potassium [Moles/Vol] 3.8 mmol/L Normal 3.5-5.1 [facility] Comment on above: Performed By: #### C MP ####[facility] Dctgdvqwsm8491 [place] [address]Dr. Chrissy Freddie Protein [Mass/Vol] 7.6 g/dL Normal 6.4-8.2 [facility] Comment on above: Performed By: #### C MP ####[facility] Vtxpxogdxm9886 [place] [address]Dr. Tishrowan Frazier Sodium [Moles/Vol] 138 mmol/L Normal 136-145 [facility] Comment on above: Performed By: #### C MP ####[facility] Pvdifmiwrd4785 [place] [address]Dr. Chrissy Frazier Urea nitrogen [Mass/Vol] 12.0 mg/dL Normal 7.0-18.0 [facility] Comment on above: Performed By: #### C MP ####[facility] Rmcinsqzec1413[address] [place], [place] [address]Dr. Chrissy Frazier Urea nitrogen/Creatinine [Mass ratio] 9.7 mg/mg Normal [facility] Comment on above: Performed By: #### C MP ####[facility] Vhpkgqcpps3177 [place] [address]Dr. Chrissy Frazier AMMONIAon 03-29-2022 Ammonia (P) [Moles/Vol] 27 umol/L Normal 11-[address] [facility] Comment on above: Performed By: #### A MM ####[facility] Lcnfauftzx6437[address] [place], [place] [address]Dr. Chrissy Frazier AMYLASEon 03-29-2022 Amylase [Catalytic activity/Vol] 29 U/L Normal 25-[address] [facility] Comment on above: Performed By: #### L IPA, TERRENCE ####[facility] Wxuvjvkrwu4909[address] [place], [place] [address]Dr. Chrissy Frazier CBC AUTO DIFFon 03-29-2022 BASO # 0.0 103/ul Normal 0.0-0.[address] [facility] Comment on above: Performed By: #### C BC ####[facility] Pinxqwjrbu932562 [address] [place], [place] [address]Dr. Chrissy Freddie Basophils/100 WBC (Bld) 0.2 % Normal 0.2-2.[address] [facility] Comment on above: Performed By: #### C BC ####[facility] Ntitabdhvu324762 [address] [place], [place] [address]Dr. Chrissy Frazier EO # 0.0 103/ul Normal 0.0-0.[address] [facility] Comment on above: Performed By: #### C BC ####[facility] Ihxlnqtgmo486162 [address] [place], [place] [address]Dr. Chrissy Freddie Eosinophils/100 WBC (Bld) 0.4 % Critically low 0.9-7.[address] [facility] Comment on above: Performed By: #### C BC ####[facility] Ukviugvnpq402862 [address] [place], [place] [address]Dr. Chrissy Frazier Erythrocyte distribution width (RBC) [Ratio] 13.6 % Normal 11.0-15.0 [facility] Comment on above: Performed By: #### C BC ####[facility] Rgpnaaxkdl0058 [place] [address]Dr. Chrissy Frazier Hematocrit (Bld) [Volume fraction] 45.2 % Normal 42.0-54.0 [facility] Comment on above: Performed By: #### C BC ####[facility] Xemxspjhbe877[address] [place], [place] [address]Dr. Chrissy Frazier Hemoglobin (Bld) [Mass/Vol] 14.8 g/dL Normal 14.0-18.[address] [facility] Comment on above: Performed By: #### C BC ####[facility] Bosnkqnsgk677962 [address] [place], [place] [address]Dr. Chrissy Frazier IG # 0.03 10e3/ul Normal 0.00-0.03 [facility] Comment on above: Performed By: #### C BC ####[facility] Cflwuyqrdq808162 [address] [place], [place] [address]Dr. Tishrowan Frazier IG % 0.3 % Normal 0.0-0.5 [facility] Comment on above: Performed By: #### C BC ####[facility] Gsrcsnpxak465062 [address] [place], [place] [address]Dr. Chrissy Frazier LYMPH # 2.0 103/ul Normal 1.2-3.[address] [facility] Comment on above: Performed By: #### C BC ####[facility] Iibqhpwyij924[address] [place], [place] [address]Dr. Chrissy Frazier Lymphocytes/100 WBC (Bld) 18.3 % Critically low 20.5-60.[address] [facility] Comment on above: Performed By: #### C BC ####[facility] Sdpbxabhiw618362 [address] [place], [place] [address]Dr. Chrissy Frazier MANUAL DIFF REQ NO Normal [facility] Comment on above: Performed By: #### C BC ####[facility] Blfplvivsx513462 [address] [place], [place] [address]Dr. Chrissy Frazier MCH (RBC) [Entitic mass] 28.5 pg Normal 25.9-34.0 [facility] Comment on above: Performed By: #### C BC ####[facility] Ygxhvjdbya8309 [place] [address]DrNancy Frazier MCHC (RBC) [Mass/Vol] 32.7 g/dL Normal 29.9-35.[address] [facility] Comment on above: Performed By: #### C BC ####[facility] Lughbxocgn2659 [place] [address]DrNancy Frazier MCV (RBC) [Entitic vol] 87.1 fL Normal 80.0-94.[address] [facility] Comment on above: Performed By: #### C BC ####[facility] Sljvmwdzlo8280[address] [place], [place] [address]DrNancy Frazier MONO # 0.9 103/ul Critically high 0.3-0.8 [facility] Comment on above: Performed By: #### C BC ####[facility] Oerfhgualc916062 [address] [place], [place] [address]DrNancy Frazier Monocytes/100 WBC (Bld) 8.6 % Normal 1.7-12.[address] [facility] Comment on above: Performed By: #### C BC ####[facility] Leccpuexab5730[address] [place], [place] [address]DrNancy Frazier NEUT # 7.8 103/ul Critically high 1.4-6.5 [facility] Comment on above: Performed By: #### C BC ####[facility] Glngwqymad615[address] [place], [place] [address]DrNancy Frazier Neutrophils/100 WBC (Bld) 72.2 % Normal 43.0-75.[address] [facility] Comment on above: Performed By: #### C BC ####[facility] Dmpzhwhphh055[address] [place], [place] [address]DrNancy Frazier Platelet mean volume (Bld) [Entitic vol] 10.1 fL Normal 9.5-13.[address] [facility] Comment on above: Performed By: #### C BC ####[facility] Djennwhhgx679[address] [place], [place] [address]Dr. Chrissy Frazier PLT 329 103/ul Normal 150-[address] [facility] Comment on above: Performed By: #### C BC ####[facility] Ohejznqyky7461 [place] [address]Dr. Chrissy Frazier RBC 5.19 106/ul Normal 4.70-6.10 [facility] Comment on above: Performed By: #### C BC ####[facility] Hyriituiox4926 [place] [address]Dr. Chrissy Frazier WBC 10.8 103/ul Normal 4.0-11.[address] [facility] Comment on above: Performed By: #### C BC ####[facility] Hrvlualpmg3448 [place] [address]Dr. Chrissy Freddie LIPASEon 03-29-2022 Lipase [Catalytic activity/Vol] 58.0 U/L Critically low 73.0-393.0 [facility] Comment on above: Performed By: #### L TERRENCE VICTORIA ####[facility] Exujkenbla069[address] [place], [place] [address]Dr. Chrissy Freddie NM HEPATOBILIARY SCAN W EFon 03-29-2022 NM HEPATOBILIARY SCAN W EF Normal [facility] PROF 14(COMP METB)on 022 Albumin [Mass/Vol] 3.8 g/dL Normal 3.4-5.0 [facility] Comment on above: Performed By: #### C MP ####[facility] Njjllturgd3011 [place] [address]DrNancy Winstonrowan Freddie Albumin/Globulin [Mass ratio] 1.0 {ratio} Normal [facility] Comment on above: Performed By: #### C MP ####[facility] Oyzjlpkumu9771 [place] [address]Dr. Chrissy Frazier ALP [Catalytic activity/Vol] 69 U/L Normal 46-[address] [facility] Comment on above: Performed By: #### C MP ####[facility] Nsbvtwfxes8143 [place] [address]Dr. Chrissy Frazier ALT [Catalytic activity/Vol] 117 U/L Critically high 16-63 [facility] Comment on above: Performed By: #### C MP ####[facility] Zhubtoaywf8538 [place] [address]Dr. Chrissy Frazier Anion gap [Moles/Vol] 16.7 mmol/L Normal [facility] Comment on above: Performed By: #### C MP ####[facility] Iydmkxosxa1027[address] [place], [place] [address]Dr. Chrissy Frazier AST [Catalytic activity/Vol] 77 U/L Critically high 15-37 [facility] Comment on above: Performed By: #### C MP ####[facility] Hlpfcseviz4880[address] [place], [place] [address]Dr. Chrissy Frazier Bilirubin [Mass/Vol] 1.5 mg/dL Critically high 0.2-1.0 [facility] Comment on above: Performed By: #### C MP ####[facility] Tycyvgebua314[address] [place], [place] [address]Dr. hCrissy Frazier Calcium [Mass/Vol] 8.1 mg/dL Critically low 8.5-10.1 [facility] Comment on above: Performed By: #### C MP ####[facility] Ftjvoqeupp596[address] [place], [place] [address]Dr. Chrissy Freddie Chloride [Moles/Vol] 101 mmol/L Normal 98-107 [facility] Comment on above: Performed By: #### C MP ####[facility] Zwdwymyyhf4501[address] [place], [place] [address]Dr. Chrissy Frazier CO2 [Moles/Vol] 24.5 mmol/L Normal 21.0-32.0 [facility] Comment on above: Performed By: #### C MP ####[facility] Ansqtmtswe660362 [address] [place], [place] [address]Dr. Chrissy Frazier Creatinine [Mass/Vol] 1.17 mg/dL Normal 0.70-1.[address] [facility] Comment on above: Performed By: #### C MP ####[facility] Uksnsorehn884[address] [place], [place] [address]Dr. Chrissy Freddie EGFR-AF MOLDOVAN >60 Normal >=60 [facility] Comment on above: Performed By: #### C MP ####[facility] Gksftgttqv9305 [place] [id number]. Chrissy Frazier EGFR-NON AF MOLDOVAN >60 Normal >=[address] [facility] Comment on above: Performed By: #### C MP ####[facility] Ulphohwizy8570 [place] [id number]. Chrissy Frazier Globulin (S) [Mass/Vol] 3.9 g/dL Normal [facility] Comment on above: Performed By: #### C MP ####[facility] Frvnrgaptm0916 [place] [address]Dr. Chrissy Frazier Glucose [Mass/Vol] 104 mg/dL Normal 74-106 [facility] Comment on above: Performed By: #### C MP ####[facility] Befaihjmap7062 [place] [address]Dr. Chrissy Frazier Potassium [Moles/Vol] 3.2 mmol/L Critically low 3.5-5.[address] [facility] Comment on above: Performed By: #### C MP ####[facility] Hflwimxbjl207[address] [place], [place] [address]Dr. Chrissy Frazier Protein [Mass/Vol] 7.7 g/dL Normal 6.4-8.2 [facility] Comment on above: Performed By: #### C MP ####[facility] Nysrbczehf1757[address] [place], [place] [address]Dr. Chrissy Frazier Sodium [Moles/Vol] 139 mmol/L Normal 136-145 [facility] Comment on above: Performed By: #### C MP ####[facility] Hbqhbciwyl0769 [place] [address]Dr. Chrissy Frazier Urea nitrogen [Mass/Vol] 11.0 mg/dL Normal 7.0-18.[address] [facility] Comment on above: Performed By: #### C MP ####[facility] Dtxxfjchxf9528 [place] [address]Dr. Chrissy Frazier Urea nitrogen/Creatinine [Mass ratio] 9.4 mg/mg Normal [facility] Comment on above: Performed By: #### C MP ####[facility] Ibjmrzxyoi3368 [place] [address]DrNancy Frazier US SINGLE QUAD RT UPPERon US SINGLE QUAD RT UPPER Normal [facility] AMMONIAon 03-28-2022 Ammonia (P) [Moles/Vol] 12 umol/L Normal 11-[address] [facility] Comment on above: Performed By: #### A MM ####[facility] Mlnjmonpyw280[address] [place], [place] [address]Dr. Chrissy Frazier CBC AUTO DIFFon 03-28-2022 BASO # 0.0 103/ul Normal 0.0-0.[address] [facility] Comment on above: Performed By: #### C BC ####[facility] Qkqkxscnoo9537[address] [place], [place] [address]DrNancy Frazier Basophils/100 WBC (Bld) 0.1 % Critically low 0.2-2.[address] [facility] Comment on above: Performed By: #### C BC ####[facility] Zhcgyvxrig5529[address] [place], [place] [address]DrNancy Frazier EO # 0.0 103/ul Normal 0.0-0.[address] [facility] Comment on above: Performed By: #### C BC ####[facility] Nswplswpdu658[address] [place], [place] [address]DrNancy Frazier Eosinophils/100 WBC (Bld) 0.0 % Critically low 0.9-7.[address] [facility] Comment on above: Performed By: #### C BC ####[facility] Zlyofqqtaz647[address] [place], [place] [address]DrNancy Frazier Erythrocyte distribution width (RBC) [Ratio] 14.0 % Normal 11.0-15.[address] [facility] Comment on above: Performed By: #### C BC ####[facility] Xsxcvcwdki401[address] [place], [place] [address]DrNancy Frazier Hematocrit (Bld) [Volume fraction] 44.2 % Normal 42.0-54.0 [facility] Comment on above: Performed By: #### C BC ####[facility] Wxwnvwzwdw8315[address] [place], [place] [address]DrNancy Frazier Hemoglobin (Bld) [Mass/Vol] 14.7 g/dL Normal 14.0-18.[address] [facility] Comment on above: Performed By: #### C BC ####[facility] Nixobpmiud7432 [place] [address]DrNancy Frazier IG # 0.10 10e3/ul Critically high 0.00-0.03 [facility] Comment on above: Performed By: #### C BC ####[facility] Merfaonorx4983 [place] [address]DrNancy Frazier IG % 0.5 % Normal 0.0-0.5 [facility] Comment on above: Performed By: #### C BC ####[facility] Ndckritzlb3749[address] [place], [place] [address]DrNancy Frazier LYMPH # 2.6 103/ul Normal 1.2-3.[address] [facility] Comment on above: Performed By: #### C BC ####[facility] Muvlojtfre7264[address] [place], [place] [address]DrNancy Frazier Lymphocytes/100 WBC (Bld) 13.8 % Critically low 20.5-60.0 [facility] Comment on above: Performed By: #### C BC ####[facility] Urzodkmmaz635[address] [place], [place] [address]DrNancy Frazier MANUAL DIFF REQ NO Normal [facility] Comment on above: Performed By: #### C BC ####[facility] Eyuuyxtmno8837[address] [place], [place] [address]DrNancy Frazier MCH (RBC) [Entitic mass] 29.0 pg Normal 25.9-34.[address] [facility] Comment on above: Performed By: #### C BC ####[facility] Lsaltowcwf1400[address] [place], [place] [address]DrNancy Frazier MCHC (RBC) [Mass/Vol] 33.3 g/dL Normal 29.9-35.[address] [facility] Comment on above: Performed By: #### C BC ####[facility] Vszcqudrbr[address] [place], [place] [address]Dr. Chrissy Frazier MCV (RBC) [Entitic vol] 87.2 fL Normal 80.0-94.[address] [facility] Comment on above: Performed By: #### C BC ####[facility] Zyksgelbmf10[address] [place] [id number]. Winstonrowan Frazier MONO # 1.1 103/ul Critically high 0.3-0.8 [facility] Comment on above: Performed By: #### C BC ####[facility] Mqzqpfykxs1376 [place] [address]DrNancy Frazier Monocytes/100 WBC (Bld) 5.9 % Normal 1.7-12.[address] [facility] Comment on above: Performed By: #### C BC ####[facility] Ocosfsfxxb3834[address] [place], [place] [address]DrNancy Winstonrowan Frazier NEUT # 15.1 103/ul Critically high 1.4-6.5 [facility] Comment on above: Performed By: #### C BC ####[facility] Uxpblylupe09[address] [place], [place] [address]DrNancy Frazier Neutrophils/100 WBC (Bld) 79.7 % Critically high 43.0-75.[address] [facility] Comment on above: Performed By: #### C BC ####[facility] Bxtakpbwcq2217[address] [place], [place] [address]DrNancy Frazier Platelet mean volume (Bld) [Entitic vol] 10.3 fL Normal 9.5-13.[address] [facility] Comment on above: Performed By: #### C BC ####[facility] Frkpksjcce037[address] [place], [place] [address]DrNancy Frazier PLT 358 103/ul Normal 150-[address] [facility] Comment on above: Performed By: #### C BC ####[facility] Wuksnfryft[address] [place], [place] [address]DrNancy Frazier RBC 5.07 106/ul Normal 4.70-6.[address] [facility] Comment on above: Performed By: #### C BC ####[facility] Afrnzyzagb415[address] [place], [place] [address]DrNancy Frazier WBC 18.9 103/ul Critically high 4.0-11.0 [facility] Comment on above: Performed By: #### C BC ####[facility] Bnnreznbxm635[address] [place], [place] [address]Dr. Chrissy Frazier PROF 14(COMP METB)on 022 Albumin [Mass/Vol] 3.9 g/dL Normal 3.4-5.0 [facility] Comment on above: Performed By: #### C MP ####[facility] Snxedumoyh29[address] [place], [place] [address]Dr. Chrissy Frazier Albumin/Globulin [Mass ratio] 1.1 {ratio} Normal [facility] Comment on above: Performed By: #### C MP ####[facility] Hwvmpvggaa3724[address] [place], [place] [address]Dr. Chrissy Frazier ALP [Catalytic activity/Vol] 65 U/L Normal 46-[address] [facility] Comment on above: Performed By: #### C MP ####[facility] Vrkyoedbns620[address] [place], [place] [address]Dr. Chrissy Frazier ALT [Catalytic activity/Vol] 46 U/L Normal 16-[address] [facility] Comment on above: Performed By: #### C MP ####[facility] Merxawlmds25[address] [place], [place] [address]Dr. Chrissy Frazier Anion gap [Moles/Vol] 13.2 mmol/L Normal [facility] Comment on above: Performed By: #### C MP ####[facility] Omquygltrz725[address] [place], [place] [address]Dr. Chrissy Frazier AST [Catalytic activity/Vol] 33 U/L Normal 15-[address] [facility] Comment on above: Performed By: #### C MP ####[facility] Mzacmozqrh8947[address] [place], [place] [address]Dr. Chrissy Frazier Bilirubin [Mass/Vol] 0.8 mg/dL Normal 0.2-1.[address] [facility] Comment on above: Performed By: #### C MP ####[facility] Oopppipxak4101[address] [place], [place] [address]Dr. Chrissy Frazier Calcium [Mass/Vol] 8.1 mg/dL Critically low 8.5-10.1 [facility] Comment on above: Performed By: #### C MP ####[facility] Gtiibkaqap5[address] [place] [address]Dr. Chrissy Frazier Chloride [Moles/Vol] 102 mmol/L Normal 98-107 [facility] Comment on above: Performed By: #### C MP ####[facility] Xzcmhabkiz2452 [place] [address]Dr. Chrissy Frazier CO2 [Moles/Vol] 24.0 mmol/L Normal 21.0-32.0 [facility] Comment on above: Performed By: #### C MP ####[facility] Byfumgwxvb2335[address] [place], [place] [address]Dr. Chrissy Freddie Creatinine [Mass/Vol] 1.26 mg/dL Normal 0.70-1.30 [facility] Comment on above: Performed By: #### C MP ####[facility] Jhpwzjehni8517[address] [place], [place] [address]Dr. Chrissy Freddie EGFR-AF MOLDOVAN >60 Normal >=60 [facility] Comment on above: Performed By: #### C MP ####[facility] Grzmcsbnqw7816[address] [place], [place] [address]Dr. Tishrowan Freddie EGFR-NON AF MOLDOVAN >60 Normal >=60 [facility] Comment on above: Performed By: #### C MP ####[facility] Yhgazjffvv6120 [place] [address]Dr. Chrissy Frazier Globulin (S) [Mass/Vol] 3.7 g/dL Normal [facility] Comment on above: Performed By: #### C MP ####[facility] Hwaammklyy9122 [place] [address]Dr. Chrissy Frazier Glucose [Mass/Vol] 119 mg/dL Critically high 74-106 [facility] Comment on above: Performed By: #### C MP ####[facility] Srhufmqapp7284 [place] [address]Dr. Chrissy Frazier Potassium [Moles/Vol] 3.2 mmol/L Critically low 3.5-5.1 [facility] Comment on above: Performed By: #### C MP ####[facility] Vhuksqnoyw7903 [place] [address]Dr. Chrissy Frazier Protein [Mass/Vol] 7.6 g/dL Normal 6.4-8.2 [facility] Comment on above: Performed By: #### C MP ####[facility] Cgeamwkyfe6202 [place] [address]Dr. Chrissy Frazier Sodium [Moles/Vol] 136 mmol/L Normal 136-145 [facility] Comment on above: Performed By: #### C MP ####[facility] Mizzlnnifh0244 [place] [address]Dr. Chrissy Frazier Urea nitrogen [Mass/Vol] 14.0 mg/dL Normal 7.0-18.[address] [facility] Comment on above: Performed By: #### C MP ####[facility] Jsnpxqwurh6125 [place] [address]Dr. Chrissy Frazier Urea nitrogen/Creatinine [Mass ratio] 11.1 mg/mg Normal [facility] Comment on above: Performed By: #### C MP ####[facility] Clctqpiheh3349 [place] [address]Dr. Chrissy Frazier CBC W MANUAL DIFFon 03-27-20 22 ATYPICAL LYMPH # Normal [facility] Comment on above: Performed By: #### C BCMAN ####[facility] Jxdgjupfni8451 [place] [address]Dr. Chrissy Freddie ATYPICAL LYMPH % Normal [facility] Comment on above: Performed By: #### C BCMAN ####[facility] Izbypohhmz1519 [place] [id number]. Chrissy Frazier BAND # 0.0 103/ul Normal 0.0-0.[address] [facility] Comment on above: Performed By: #### C BCMAN ####[facility] Kskrdfjqbw6836 [place] [address]Dr. Chrissy Frazier BAND % 0 % Normal 0-[address] [facility] Comment on above: Performed By: #### C BCMAN ####[facility] Ovnhpzrnpi5708 [place] [address]Dr. Chrissy Frazier BASOM # 0.00 103/ul Normal 0.00-0.[address] [facility] Comment on above: Performed By: #### C BCMAN ####[facility] Yxkqsyqvyv0085 [place] [address]Dr. Chrissy Frazier BASOM % 0.0 % Critically low 0.2-2.[address] [facility] Comment on above: Performed By: #### C BCMAN ####[facility] Fnbcelkihc1887 [place] [address]Dr. Chrissy Frazier BLAST # Normal [facility] Comment on above: Performed By: #### C BCLEANDRO ####[facility] Gsdesjakve56[address] [place], [place] [address]Dr. Chrissy Frazier BLAST % Normal [facility] Comment on above: Performed By: #### C BCLEANDRO ####[facility] Vwygnfndhj1999[address] [place], [place] [address]Dr. Chrissy Frazier CORRECTED WBC Normal 4.0-11.0 [facility] Comment on above: Performed By: #### C BCLEANDRO ####[facility] Dfokzuiodo9[address] [place], [place] [address]Dr. Chrissy Frazier EOS # 0.00 103/ul Normal 0.00-0.[address] [facility] Comment on above: Performed By: #### C BCLEANDRO ####[facility] Jedhoyssog3984[address] [place], [place] [address]Dr. Chrissy Frazier EOS% 0.0 % Critically low 0.9-7.[address] [facility] Comment on above: Performed By: #### C BCLEANDRO ####[facility] Eytwjjlhoc8669[address] [place], [place] [address]Dr. Chrissy Frazier HCT 47.3 % Normal 42.0-54.[address] [facility] Comment on above: Performed By: #### C BCMAN ####[facility] Wobthnvagc20[address] [place], [place] [address]Dr. Chrissy Frazier HGB 16.4 g/dl Normal 14.0-18.[address] [facility] Comment on above: Performed By: #### C BCMAN ####[facility] Lezilafexn1751 [place], [place] [address]Au. Chrissy Frazier LYMPHM # 2.31 103/ul Normal 1.20-3.[address] [facility] Comment on above: Performed By: #### C ANTONETTE ####[facility] Hhulwjtfss6013 [place], [place] [address]Bn. Chrissy Frazier LYMPHM% 9.0 % Critically low 20.5-60.[address] [facility] Comment on above: Performed By: #### C ANTONETTE ####[facility] Zeulylwhmp5331 [place] [id number]. Chrissy Frazier MCH 28.6 pg Normal 25.9-34.[address] [facility] Comment on above: Performed By: #### C ANTONETTE ####[facility] Frrjyohhny2781 [place] [id number]. Chrissy Frazier MCHC 34.7 g/dl Normal 29.9-35.[address] [facility] Comment on above: Performed By: #### C ANTONETTE ####[facility] Txnkvdzpqz8463 [place] [id number]. Chrissy Frazier MCV 82.4 fL Normal 80.0-94.[address] [facility] Comment on above: Performed By: #### C ANTONETTE ####[facility] Xjiireawxs5123 [place] [id number]. Chrissy Frazier METAMYELOCYTE # Normal [facility] Comment on above: Performed By: #### C ANTONETTE ####[facility] Znbsrsokpj3573 [place] [id number]. Chrissy Frazier METAMYELOCYTE % Normal [facility] Comment on above: Performed By: #### C ANTONETTE ####[facility] Cvzfipglcj7368 [place] [address]Dr. Chrissy Frazier MONOM# 3.85 103/ul Critically high 0.30-0.80 [facility] Comment on above: Performed By: #### C ANTONETTE ####[facility] Hquzrdccre7379 [place] [address]Dr. Chrissy Frazier MONOM% 15.0 % Critically high 1.7-12.0 [facility] Comment on above: Performed By: #### C ANTONETTE ####[facility] Jnfmjlyoll4277 [place] [id number]. Chrissy Frazier MPV 10.6 fL Normal 9.5-13.[address] [facility] Comment on above: Performed By: #### C ANTONETTE ####[facility] Fzsygxfxuy4555 [place] [id number]. Chrissy Frazier MYELOCYTE # Normal [facility] Comment on above: Performed By: #### C ANTONETTE ####[facility] Rsxmrifoif2363 [place] [address]Dr. Chrissy Frazier MYELOCYTE % Normal [facility] Comment on above: Performed By: #### C ANTONETTE ####[facility] Yaodlukyce2170 [place] [id number]. Chrissy Frazier NRBC Normal [facility] Comment on above: Performed By: #### C ANTONETTE ####[facility] Hmsxunpdox5939 [place] [id number]. Chrissy Frazier PLT 471 103/ul Critically high 150-450 [facility] Comment on above: Performed By: #### C ANTONETTE ####[facility] Pdxgmvnvyn4778 [place] [id number]. Chrissy Frazier RBC 5.74 106/ul Normal 4.70-6.[address] [facility] Comment on above: Performed By: #### C ANTONETTE ####[facility] Vgjfdqdxci6487 [place] [id number]. Chrissy Frazier RDW 13.7 % Normal 11.0-15.[address] [facility] Comment on above: Performed By: #### C ANTONETTE ####[facility] Yzrfqcehvb2937 [place] [id number]. Chrissy Frazier SEG # 19.53 103/ul Critically high 1.40-6.50 [facility] Comment on above: Performed By: #### C ANTONETTE ####[facility] Rswfswpsnh6112 [place] [id number]. Chrissy Frazier SEG % 76.0 % Critically high 43.0-75.0 [facility] Comment on above: Performed By: #### C BCMAN ####[facility] Lvyafajuri6727 [place] [address]Dr. Chrissy Frazier TOXIC GRANULATION SLIGHT Normal [facility] Comment on above: Result Comment: few vacoules Performed By: #### C BCMAN ####[facility] Lofxlrysym0759 [place] [address]Dr. Chrissy Frazier WBC 25.7 103/ul Critically high 4.0-11.0 [facility] Comment on above: Performed By: #### C ANTONETTE ####[facility] Jfbeyxmuqm39[address] [place], [place] [address]Dr. Chrissy Freddie LACTATE/LACTIC ACIDon 2021 Lactate [Moles/Vol] 2.4 mmol/L Critically high 0.4-1.9 [facility] Comment on above: Performed By: #### L ACT ####[facility] Yvygouowup860[address] [place], [place] [address]Dr. Chrissy Frazier Lactate [Moles/Vol] 3.5 mmol/L Critically high 0.4-1.[address] [facility] Comment on above: Performed By: #### L ACT ####[facility] Xyvsegoqtm920[address] [place], [place] [address]Dr. Chrissy Frazier LIPASEon 03-27-2022 Lipase [Catalytic activity/Vol] 43.0 U/L Critically low 73.0-393.[address] [facility] Comment on above: Performed By: #### C MP, LIPA ####[facility] Etqjkurqaq5490 [place] [address]Dr. Chrissy Frazier PROF 14(COMP METB)on 022 Albumin [Mass/Vol] 4.7 g/dL Normal 3.4-5.0 [facility] Comment on above: Performed By: #### C MP, LIPA ####[facility] Amrrurjyuv2400[address] [place], [place] [address]Dr. Tishrowan Frazier Albumin/Globulin [Mass ratio] 1.1 {ratio} Normal [facility] Comment on above: Performed By: #### C MP, LIPA ####[facility] Rlbqeckvdx9489 [place] [address]Dr. Chrissy Frazier ALP [Catalytic activity/Vol] 69 U/L Normal 46-116 [facility] Comment on above: Performed By: #### C MP, LIPA ####[facility] Qllogsrzij7191 [place] [address]Dr. Chrissy Frazier ALT [Catalytic activity/Vol] 47 U/L Normal 16-63 [facility] Comment on above: Performed By: #### C MP, LIPA ####[facility] Manyomkjsu3311 [place] [address]Dr. Chrissy Frazier Anion gap [Moles/Vol] 23.2 mmol/L Normal [facility] Comment on above: Performed By: #### C MP, LIPA ####[facility] Zfshaohyoe348[address] [place], [place] [address]Dr. Chrissy Frazier AST [Catalytic activity/Vol] 23 U/L Normal 15-37 [facility] Comment on above: Performed By: #### C MP, LIPA ####[facility] Dpfjncobzj887[address] [place], [place] [address]Dr. Chrissy Frazier Bilirubin [Mass/Vol] 0.7 mg/dL Normal 0.2-1.0 [facility] Comment on above: Performed By: #### C MP, LIPA ####[facility] Usifuichzt9723[address] [place], [place] [address]Dr. Chrissy Frazier Calcium [Mass/Vol] 9.2 mg/dL Normal 8.5-10.1 [facility] Comment on above: Performed By: #### C MP, LIPA ####[facility] Lriyzaefsr7281 [place] [address]Dr. Chrissy Freddie Chloride [Moles/Vol] 97 mmol/L Critically low 98-107 [facility] Comment on above: Performed By: #### C MP, LIPA ####[facility] Agdbwohpfy501[address] [place], [place] [address]Dr. Chrissy Freddie CO2 [Moles/Vol] 18.2 mmol/L Critically low 21.0-32.0 [facility] Comment on above: Performed By: #### C MP, LIPA ####[facility] Pjahfmdvge4019[address] [place], [place] [address]Dr. Chrissy Frazier Creatinine [Mass/Vol] 1.77 mg/dL Critically high 0.70-1.30 [facility] Comment on above: Performed By: #### C MP, LIPA ####[facility] Gfzrtcgykx2855[address] [place], [place] [address]Dr. Chrissy Frazier EGFR-AF MOLDOVAN 54 mL/min/1.73m2 Critically low >=60 [facility] Comment on above: Performed By: #### C MP, LIPA ####[facility] Enqbuiqcrn1109[address] [place], [place] [address]Dr. Chrissy Freddie EGFR-NON AF MOLDOVAN 45 mL/min/1.73m2 Critically low >=60 [facility] Comment on above: Performed By: #### C MP, LIPA ####[facility] Jokdqkpnhj39[address] [place], [place] [address]Dr. Chrissy Freddie Globulin (S) [Mass/Vol] 4.4 g/dL Normal [facility] Comment on above: Performed By: #### C MP, LIPA ####[facility] Eedpyawbrx167[address] [place], [place] [address]Dr. Chrissy Frazier Glucose [Mass/Vol] 131 mg/dL Critically high 74-106 [facility] Comment on above: Performed By: #### C MP, LIPA ####[facility] Nwbyfzsppw73[address] [place], [place] [address]Dr. Chrissy Frazier Potassium [Moles/Vol] 3.4 mmol/L Critically low 3.5-5.1 [facility] Comment on above: Performed By: #### C MP, LIPA ####[facility] Ozdomtohmh7412[address] [place], [place] [address]Dr. Chrissy Freddie Protein [Mass/Vol] 9.1 g/dL Critically high 6.4-8.2 [facility] Comment on above: Performed By: #### C MP, LIPA ####[facility] Qhsloqewkt0669 [place], [place] [address]Rq. Chrissy Frazier Sodium [Moles/Vol] 135 mmol/L Critically low 136-145 [facility] Comment on above: Performed By: #### C MANA, LIPA ####[facility] Zoltxftnay3043 [place], [place] [address]Ik. Chrissy Frazier Urea nitrogen [Mass/Vol] 19.0 mg/dL Critically high 7.0-18.0 [facility] Comment on above: Performed By: #### C MANA, LIPA ####[facility] Xrjrwxcczv9615 [place], [place] [address]Oj. Chrissy Frazier Urea nitrogen/Creatinine [Mass ratio] 10.7 mg/mg Normal [facility] Comment on above: Performed By: #### C MANA, OSWALD ####[facility] Ltnqlojmpv4281 [place], [place] [address]Kk. Chrissy Frazier BMPon 11-03-2020 Anion gap [Moles/Vol] 14 mmol/L Normal 6-16 [facility] Comment on above: Performed By: #### 2 [id number], [id number], [id number] #### [facility] [address] [place] [address] Calcium [Mass/Vol] 9.0 mg/dL Normal 8.9-11.1 [facility] Comment on above: Performed By: #### 2 [id number], [id number], [id number] #### [facility] [address] [place] [address] Chloride [Moles/Vol] 104 mmol/L Normal 101-111 [facility] Comment on above: Performed By: #### 2 357636, 9924554, [id number] #### [facility] [address] [place] [address] CO2 [Moles/Vol] 21 mmol/L Normal 21-31 [facility] Comment on above: Performed By: #### 2 [id number], [id number], [id number] #### [facility] [address] [place] [address] Creatinine [Mass/Vol] 1.3 mg/dL Normal 0.5-1.3 [facility] Comment on above: Performed By: #### 2 337928, 9891461, [id number] #### [facility] [address] [place] [address] Glucose [Mass/Vol] 111 mg/dL Normal 55-199 [facility] Comment on above: Result Comment: If t his glucose result represents a fasting glucose, interpretation should refer to the following reference range: 55-99 mg/dL Performed By: #### 2 778003, [id number], [id number] #### [facility] [address] [place] [address] Potassium [Moles/Vol] 2.9 mmol/L Low 3.5-5.3 [facility] Comment on above: Performed By: #### 2 833490, 4402017, [id number] #### [facility] [address] [place] [address] Sodium [Moles/Vol] 136 mmol/L Normal 135-145 [facility] Comment on above: Performed By: #### 2 643925, 9900030, [id number] #### [facility] [address] [place] [address] Urea nitrogen [Mass/Vol] 14 mg/dL Normal 5-21 [facility] Comment on above: Performed By: #### 2 092094, 0283713, [id number] #### [facility] [address] [place] [address] Urea nitrogen/Creatinine [Mass ratio] 11 No Units Normal 10-20 [facility] Comment on above: Performed By: #### 2 740828, 1078347, [id number] #### [facility] [address] [place] [address] Lipase Levelon 11-03-2020 Lipase [Catalytic activity/Vol] 66 unit/L High 13-58 [facility] Comment on above: Performed By: #### 2 548054, 6580676, [id number] #### [facility] [address] [place] [address] Physician Orderon 11-03-2020 Physician Order [id number] 3#1.00CD:127 Normal [facility] eGFRon 11-03-2020 GFR/1.73 sq M predicted among blacks MDRD (S/P/Bld) [Vol rate/Area] mL/min/{1.73_m2} Normal >=59 [facility] Comment on above: Order Comment: Order added by Discern Expert. Result Comment: eGFR is race adjusted. AA=. Performed By: #### 2 364265, 1836840, [id number] #### [facility] [address] [place] [address] GFR/1.73 sq M predicted among non-blacks MDRD (S/P/Bld) [Vol rate/Area] mL/min/{1.73_m2} Normal >=59 [facility] Comment on above: Order Comment: Order added by Discern Expert. Result Comment: Spool Carrier lindsay kidney disease could be indicated at eGFR's of less than 60 mL/min/1.73m2. Kidney failure is indicated at less than 15 mL/min/1.73m2. Performed By: #### 2 150799, 3382960, [id number] #### [facility] [address] [place] [address] Encounters Encounter Date Encounter Type Care Provider Facility Start: 03-30-2023 ambulatory Luis Angel valenciaty:[facility] Start: 01-03-2023 End: 01-04-[address] MELODY MARIO . Facility:[facility] Start: 01-03-2023 End: 01-04-2023 ambulatory RAQUEL BANKS Facility:[facility] Start: 12-29-2022 End: 12-30-[address] MELODY MARIO . Facility:[facility] Start: 12-13-2022 End: 12-14-2022 ambulatory [facility] Start: 11-24-2022 End: 11-24-2022 ambulatory [facility] Start: 11-16-2022 End: 11-17-[address] MELODY [...] Date Payer Category Payer Self-pay 1990 Unknown [id number] 1990 Unknown [id number] 1990 Unknown [id number] .16.84 [id number] 1990 Unknown [id number] .16.84 0.1.223823.3.579.2.593 1990 Unknown [id number] .16.84 0.1.234945.3.579.2.593 1990 Unknown [id number] .16.84 0.1.732725.3.579.2.593 1990 Unknown [id number] 2.16.84 0.1.541132.3.579.2.593 1990 Unknown [id number] 2.16.84 0.1.820922.3.579.2.593 1990 Unknown [id number] 2.16.84 0.1.052140.3.579.2.593 1990 Unknown [id number] 2.16.84 0.1.124906.3.579.2.593 1990 Unknown [id number] 2.16.84 0.1.826988.3.579.2.593 1990 Unknown [id number] 2.16.84 0.1.771572.3.579.2.593 1990 Unknown [id number] 2.16.84 0.1.272916.3.579.2.593 1959 Private Health Insurance [id number] Unknown [id number] 2.16.8 [id number] Progress note 11-24-2022 Note Date & Type [...] report that his father had a fatal ME at the age of 54. Stress test [...] section and content) DATE CREATED AUTHOR 11/04/2020 [facility] DATE CREATED AUTHOR AUTHOR'S ORGANIZ ATION 01/08/2023 [facility] DATE CREATED AUTHOR AUTHOR'S ORGANIZ ATION 02/07/[address] [facility] DATE CREATED AUTHOR AUTHOR'S ORGANIZ ATION 04/01/2023 [facility] FOR RECORDS PERTAINING TO PATIENTS WHO ARE [...] BE BASED ON THE PRIMARY CLINICAL RECORDS. [employer] [facility]. provides no warranty or guarantee of the accuracy or completeness of information in this document.
== END 2024-01-04 08:32 | disposition home or self-care (01) ==
PROVIDERS: PCP Family Medicine; Visit Provider Family Medicine
DX: M79.673 Pain in unspecified foot (principal); M20.11 Hallux valgus (acquired), right foot
CPT/HCPCS: 73718

== ENCOUNTER 2024-01-12 10:24 | Outpatient (OUT) | payer OTHER, SELFPAY ==
--- NOTE | 2024-01-12 | XR_ITS ---
The [address] [address] Patient Name: PAULINA CHARLES MRN: [id number] date: 1990 Sex: M Assigned Patient Location: Current Patient Location: Accession/Order Number: [id number] Exam Date: 01/12/2024 10:35 Report Date: 01/13/2024 21:56 At the request of: KAY ALEMAN Procedure: XR foot RT min 3V EXAM: XR foot RT min 3V HISTORY: RIGHT FOOT PAIN COMPARISON: None. TECHNIQUE: AP, lateral, oblique x-ray right foot. FINDINGS: No acute appearing fracture. Normal mineralization, no focal bone lesion. Small calcific density adjacent to the DIP joint fifth toe with smooth margins. Likely old. Normal appearing joints and soft tissues. XR/XR foot RT min 3V IMPRESSION: Negative for fracture or other acute appearing abnormality Electronically authenticated by: AILYN STUBBS Date: 01/13/2024 21:56
--- OUTSIDE RECORDS SUMMARY | 2024-01-12 10:27 | XMS_ITS | CCD ---
Author Name Unknown Address [address] [place] [address] Organization [facility] Care Team Providers Care Wire Galvanizer Name Role Phone DARREN MOHAMAD Referring Unavailable [...] Unavailable HOY ., DR OLIVER Admitting Unavailable [place], DR RAPHAEL Lemon Consulting Unavailable Michaels, K [...] to adverse reactions to drug (disorder) 09-28-20 [facility] Repository (1 source) Sulfamethoxazole / Trimethoprim; Translations: [SULFAMETHOXAZOLE-TR IMETHOPRIM] Drug Allergy 01-27-20 [facility] Repository (1 source) Clarithromycin Drug Allergy [facility] Repository (1 source) Sulfamethoxazole / Trimethoprim Drug Allergy 05-27-20 17 [facility] Repository (1 source) Sulfamethoxazole Drug Allergy 03-20-20 [facility] Repository (1 source) Trimethoprim Drug Allergy 03-20-20 [facility] Repository Problems Active Problems Problem Classification Problem [...] 11-16-2022 Episodic Other aftercare (1 source) 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 Chrissy Frazier AMYLASEon 01-04-2023 Amylase [Catalytic activity/Vol] 34 U/L Normal 25-115 [facility] Comment on above: Performed By: #### A MY ####[facility] Pyjropyleh[address] [place], [place] [address]Dr. Chrissy Frazier CBC AUTO DIFFon 01-04-2023 BASO # 0.0 103/ul Normal 0.0-0.1 [facility] Comment on above: Performed By: #### C BC ####[facility] E[address]uf[address]ks[address] [place], [place] [address]Dr. Chrissy Frazier Basophils/100 WBC (Bld) 0.1 % Critically low 0.2-2.0 [facility] Comment on above: Performed By: #### C BC ####[facility] F[address]gcarlkn[address] [place], [place] [address]Dr. Chrissy Frazier EO # 0.0 103/ul Normal 0.0-0.7 [facility] Comment on above: Performed By: #### C BC ####[facility] Fnwxgowqux[address] [place], [place] [address]Dr. Chrissy Frazier Eosinophils/100 WBC (Bld) 0.1 % Critically low 0.9-7.0 [facility] Comment on above: Performed By: #### C BC ####[facility] Acvqellzso[address] [place], [place] [address]Dr. Chrissy Frazier Erythrocyte distribution width (RBC) [Ratio] 14.0 % Normal 11.0-15.0 [facility] Comment on above: Performed By: #### C BC ####[facility] Nvijsmwlmr[address] [place], [place] [address]Dr. Chrissy Frazier Hematocrit (Bld) [Volume fraction] 40.4 % Critically low 42.0-54.0 [facility] Comment on above: Performed By: #### C BC ####[facility] [address] [place] [address]Dr. Chrissy Frazier Hemoglobin (Bld) [Mass/Vol] 13.8 g/dL Critically low 14.0-18.0 [facility] Comment on above: Performed By: #### C BC ####[facility] [address]peekcwu[address] [place] [address]Dr. Chrissy Frazier IG # 0.05 10e3/ul Critically high 0.00-0.03 [facility] Comment on above: Performed By: #### C BC ####[facility] [address]ju[address] [place] [address]Dr. Chrissy Frazier IG % 0.3 % Normal 0.0-0.5 [facility] Comment on above: Performed By: #### C BC ####[facility] Squxcwlbxt[address] [place], [place] [address]Dr. Chrissy Frazier LYMPH # 1.7 103/ul Normal 1.2-3.8 [facility] Comment on above: Performed By: #### C BC ####[facility] Giceopvktu[address] [place] [address]Dr. Chrissy Frazier Lymphocytes/100 WBC (Bld) 11.9 % Critically low 20.5-60.0 [facility] Comment on above: Performed By: #### C BC ####[facility] Glroylpvmi[address] [place] [address]Dr. Chrissy Frazier MANUAL DIFF REQ NO Normal [facility] Comment on above: Performed By: #### C BC ####[facility] Ftwfcjupwq[address] [place], [place] [address]Dr. Chrissy Frazier MCH (RBC) [Entitic mass] 29.3 pg Normal 25.9-34.0 [facility] Comment on above: Performed By: #### C BC ####[facility] Qzvbltqwot[address] [place], [place] [address]Dr. Chrissy Frazier MCHC (RBC) [Mass/Vol] 34.2 g/dL Normal 29.9-35.2 [facility] Comment on above: Performed By: #### C BC ####[facility] [address] [place] [id number]. Chrissy Frazier MCV (RBC) [Entitic vol] 85.8 fL Normal 80.0-94.0 [facility] Comment on above: Performed By: #### C BC ####[facility] X[address]ngtgpd[address] [place] [id number]. Chrissy Frazier MONO # 0.6 103/ul Normal 0.3-0.8 [facility] Comment on above: Performed By: #### C BC ####[facility] Mpxukzwdpg46[address] [place] [id number]. Chrissy Freddie Monocytes/100 WBC (Bld) 4.2 % Normal 1.7-12.0 [facility] Comment on above: Performed By: #### C BC ####[facility] [address] [place], [place] [address]Dr. Chrissy Frazier NEUT # 12.0 103/ul Critically high 1.4-6.5 [facility] Comment on above: Performed By: #### C BC ####[facility] [address] [place], [place] [address]Dr. Chrissy Freddie Neutrophils/100 WBC (Bld) 83.4 % Critically high 43.0-75.0 [facility] Comment on above: Performed By: #### C BC ####[facility] [address]yt[address] [place], [place] [address]Dr. Chrissy Freddie Platelet mean volume (Bld) [Entitic vol] 10.4 fL Normal 9.5-13.5 [facility] Comment on above: Performed By: #### C BC ####[facility] [address] [place], [place] [address]Dr. Tishrowan Frazier PLT 313 103/ul Normal 150-450 [facility] Comment on above: Performed By: #### C BC ####[facility] [address]rotn[address] [place] [id number]. Chrissy Frazier RBC 4.71 106/ul Normal 4.70-6.10 [facility] Comment on above: Performed By: #### C BC ####[facility] [address]uxyituw[address] [place] [address]Dr. Chrissy Frazier WBC 14.4 103/ul Critically high 4.0-11.0 [facility] Comment on above: Performed By: #### C BC ####[facility] Ob[address]bm[address] [place] [id number]. Chrissy Frazier CULTURE URINEon 01-04-2023 CULTURE URINE Culture Observations: NO GROWTH. Normal [facility] Comment on above: Performed By: #### U RCX ####[facility] Ie[address]gxfidg[address] [place] [address]Dr. Chrissy Frazier DRUG SCREEN RAPID (URINE)on 01-04-2023 AMP Negative Normal NEGATIVE [facility] Comment on above: Performed By: #### D REYES, UAMIC ####[facility] Lxcogfrfla[address] [place], [place] [address]Dr. Chrissy Frazier BAR Negative Normal NEGATIVE [facility] Comment on above: Performed By: #### D REYES, UAMIC ####[facility] Rang[address]av[address] [place] [address]Dr. Chrissy Frazier BUP Negative Normal NEGATIVE The [facility] Comment on above: Performed By: #### D REYES, UAMIC ####[facility] Vvccgirxqq[address] [place] [address]Dr. Chrissy Frazier BZO Positive Abnormal NEGATIVE The [facility] Comment on above: Performed By: #### Amelie CHAMBERS, UAMIC ####[facility] [address]ktieep[address] [place] [address]Dr. Chrissy Frazier LAUREN Negative Normal NEGATIVE The [facility] Comment on above: Performed By: #### D REYES, UAMIC ####[facility] Apbvqmcidz[address] [place], [place] [address]Dr. Chrissy Frazier CUT-OFFS SEE BELOW Normal [facility] Comment on above: Result Comment: [...] ng/mL Performed By: #### Amelie CHAMBERS, UAMIC ####[facility] Vowxmdwlgb[address] [place], [place] [address]Dr. [facility] DRUG CUT HEADER DRUG CLASS TEST SYSTEM CUT-OFF CONCENTRATIONS ARE FOLLOWS: Normal [facility] Comment on above: Performed By: #### Amelie CHAMBERS UAMIC ####[facility] Ronnwrvvzh[address] [place], [place] [address]Dr. [facility] mAMP Negative Normal NEGATIVE The [facility] Comment on above: Performed By: #### Amelie CHAMBERS UAMIC ####[facility] Btvvibaaus[address] [place], [place] [address]Dr. [facility] MTD Negative Normal NEGATIVE [facility] Comment on above: Performed By: #### Amelie CHAMBERS, UAMIC ####[facility] [address]lphomzlws[address] [place], [place] [address]Dr. [facility] OPI Negative Normal NEGATIVE The [facility] Comment on above: Performed By: #### Amelie CHAMBERS, UAMIC ####[facility] [address]eqlnbjyv[address] [place], [place] [address]Dr. [facility] OXY Negative Normal NEGATIVE The [facility] Comment on above: Performed By: #### Amelie CHAMBERS, UAMIC ####[facility] [address]zfsisekwf[address] [place], [place] [address]Dr. [facility] PCP Negative Normal NEGATIVE The [facility] Comment on above: Performed By: #### Amelie CHAMBERS, UAMIC ####[facility] Diyypbecok[address] [place], [place] [address]Dr. [facility] PPX Negative Normal NEGATIVE The [facility] Comment on above: Performed By: #### Amelie CHAMBERS UAMIC ####[facility] On[address]ql[address] [place] [id number]. Chrissy Frazier TCA Positive Abnormal NEGATIVE [facility] Comment on above: Performed By: #### D REYES UAMIC ####[facility] Oidmelbldn[address] [place] [address]Dr. Chrissy Frazier THC Positive Abnormal NEGATIVE The [facility] Comment on above: Performed By: #### D REYES UAMIC ####[facility] H[address]hcn[address] [place] [address]Dr. Chrissy Frazier LIPASEon 01-04-2023 Lipase [Catalytic activity/Vol] 57.0 U/L Critically low 73.0-393.0 [facility] Comment on above: Performed By: #### L IPA ####[facility] Jhkvevieeq[address] [place], [place] [address]Dr. Chrissy Frazier PROF 14(COMP METB)on 023 Albumin [Mass/Vol] 3.6 g/dL Normal 3.4-5.0 [facility] Comment on above: Performed By: #### C MP ####[facility] [address]oxyjib[address] [place] [address]Dr. Chrissy Frazier Albumin/Globulin [Mass ratio] 1.0 {ratio} Normal [facility] Comment on above: Performed By: #### C MP ####[facility] Ehvmlrotyi[address] [place] [address]Dr. Chrissy Frazier ALP [Catalytic activity/Vol] 67 U/L Normal 46-116 [facility] Comment on above: Performed By: #### C MP ####[facility] Jxdrcxcnqn3[address] [place] [address]Dr. Chrissy Frazier ALT [Catalytic activity/Vol] 26 U/L Normal 16-63 [facility] Comment on above: Performed By: #### C MP ####[facility] Sadceoyomw[address] [place] [address]Dr. Chrissy Frazier Anion gap [Moles/Vol] 16.3 mmol/L Normal [facility] Comment on above: Performed By: #### C MP ####[facility] B[address]msakdjm[address] [place] [id number]. Chrissy Frazier AST [Catalytic activity/Vol] 17 U/L Normal 15-37 [facility] Comment on above: Performed By: #### C MP ####[facility] Rvqlhnnzme[address] [place] [phone]. Chrissy Frazier Bilirubin [Mass/Vol] 0.4 mg/dL Normal 0.2-1.0 [facility] Comment on above: Performed By: #### C MP ####[facility] Oltmvdcifx87[address] [place] [id number]. Chrissy Frazier Calcium [Mass/Vol] 8.7 mg/dL Normal 8.5-10.1 [facility] Comment on above: Performed By: #### C MP ####[facility] Ibqbmthpll[address] [place] [phone]. Chrissy Frazier Chloride [Moles/Vol] 106 mmol/L Normal 98-107 [facility] Comment on above: Performed By: #### C MP ####[facility] Cedaubrldd[address] [place] [id number]. Chrissy Frazier CO2 [Moles/Vol] 22.6 mmol/L Normal 21.0-32.0 [facility] Comment on above: Performed By: #### C MP ####[facility] Xoztuhzflj65[address] [place] [id number]. Chrissy Frazier Creatinine [Mass/Vol] 0.99 mg/dL Normal 0.70-1.30 [facility] Comment on above: Performed By: #### C MP ####[facility] Mveicvjtkr36[address] [place] [phone]. Chrissy Frazier EGFR-AF GREENLANDIC >60 Normal >=60 [facility] Comment on above: Performed By: #### C MP ####[facility] Ajgedvdswr2[address] [place] [phone]. Chrissy Frazier EGFR-NON AF GREENLANDIC >60 Normal >=60 [facility] Comment on above: Performed By: #### C MP ####[facility] Hlpweiybjw[address] [place], [place] [address]Dr. Chrissy Frazier Globulin (S) [Mass/Vol] 3.6 g/dL Normal [facility] Comment on above: Performed By: #### C MP ####[facility] Gekqmxqklk[address] [place], [place] [address]Dr. Chrissy Frazier Glucose [Mass/Vol] 138 mg/dL Critically high 74-106 [facility] Comment on above: Performed By: #### C MP ####[facility] Ytaetztqzl[address] [place], [place] [address]Dr. Chrissy Frazier Potassium [Moles/Vol] 3.9 mmol/L Normal 3.5-5.1 [facility] Comment on above: Performed By: #### C MP ####[facility] Vjvzzkkpqx[address] [place], [place] [address]Dr. Chrissy Frazier Protein [Mass/Vol] 7.2 g/dL Normal 6.4-8.2 [facility] Comment on above: Performed By: #### C MP ####[facility] Cbyabvycuw[address] [place], [place] [address]Dr. Chrissy Frazier Sodium [Moles/Vol] 141 mmol/L Normal 136-145 [facility] Comment on above: Performed By: #### C MP ####[facility] Yfouvouvnb[address] [place], [place] [address]Dr. Chrissy Frazier Urea nitrogen [Mass/Vol] 10.0 mg/dL Normal 7.0-18.0 [facility] Comment on above: Performed By: #### C MP ####[facility] Muzvipruvh[address] [place], [place] [address]Dr. Chrissy Freddie Urea nitrogen/Creatinine [Mass ratio] 10.1 mg/mg Normal [facility] Comment on above: Performed By: #### C MP ####[facility] Ospfbxqknx[address] [place], [place] [address]Dr. Chrissy Freddie UA RANDOM W/MICROSCOPICon BACTERIA TRACE Abnormal NONE SEEN The [facility] Comment on above: Performed By: #### D REYES, UAMIC ####[facility] Adknajgfem[address] [place], [place] [address]Dr. Chrissy Frazier Bilirubin Ql (U) Negative Normal NEGATIVE [facility] Comment on above: Performed By: #### Amelie CHAMBERS, UAMIC ####[facility] Ojfvltijyp[address] [place], [place] [address]Dr. Chrissy Frazier CAST NONE SEEN Normal NONE SEEN [facility] Comment on above: Performed By: #### Amelie LARKIND, UAMIC ####[facility] Peouofrekw[address] [place], [place] [address]Dr. Chrissy Frazier Clarity (U) CLEAR Normal CLEAR [facility] Comment on above: Performed By: #### Amelie CHAMBERS, UAMIC ####[facility] Wmkhocvwua[address] [place], [place] [address]Dr. Chrissy Frazier Color (U) YELLOW Normal YELLOW [facility] Comment on above: Performed By: #### Amelie CHAMBERS, UAMIC ####[facility] Libpqeuudt[address] [place], [place] [address]Dr. Chrissy Frazier Crystals LM Nom (Urine sed) NONE SEEN Normal NONE SEEN The [facility] Comment on above: Performed By: #### Amelie CHAMBERS, UAMIC ####[facility] Powcqnmhny[address] [place], [place] [address]Dr. Chrissy Frazier Epithelial cells LM Ql (Urine sed) NONE SEEN Normal NONE SEEN /RARE [facility] Comment on above: Performed By: #### Amelie CHAMBERS, UAMIC ####[facility] Fkaflfwmsg[address] [place], [place] [address]Dr. Chrissy Frazier Glucose Ql (U) Negative Normal NEGATIVE The [facility] Comment on above: Performed By: #### Amelie CHAMBERS, UAMIC ####[facility] Yukodiickb[address] [place], [place] [address]Dr. Chrissy Frazier Hemoglobin Ql (U) Negative Normal NEGATIVE The [facility] Comment on above: Performed By: #### Amelie CHAMBERS, UAMIC ####[facility] Lxwkcmtfcq[address] [place], [place] [address]Dr. Chrissy Frazier Ketones Ql (U) 15 mg/dl Abnormal NEGATIVE The [facility] Comment on above: Performed By: #### Amelie CHAMBERS UAMIC ####[facility] [address]cemy[address] [place] [address]Dr. Chrissy Freddie LEUKOCYTES Negative Normal NEGATIVE The [facility] Comment on above: Performed By: #### Amelie CHAMBERS UAMIC ####[facility] Hyjirbehgg[address] [place] [address]Dr. Yirowan Frazier MUCOUS NONE SEEN Normal NONE SEEN The [facility] Comment on above: Performed By: #### Amelie CHAMBERS UAMIC ####[facility] Rvpspizetn[address] [place] [address]Dr. Tishrowan Frazier Nitrite Ql (U) Negative Normal NEGATIVE The [facility] Comment on above: Performed By: #### Amelie CHAMBERS UAMIC ####[facility] B[address]cezqgzd[address] [place] [address]Dr. Chrissy Frazier pH (U) 6.5 [pH] Normal 5-9 [facility] Comment on above: Performed By: #### Amelie CHAMBERS UAMIC ####[facility] M[address]my[address]jbaew[address] [place], [place] [address]Dr. Chrissy Frazier RBC NONE SEEN Abnormal 0-2 [facility] Comment on above: Performed By: #### Amelie CHAMBERS UAMIC ####[facility] Dxennjptfu[address] [place], [place] [address]Dr. Tishrowan Frazier SPEC GRAVITY 1.020 Normal 1.005-<=1.025 [facility] Comment on above: Performed By: #### Amelie CHAMBERS UAMIC ####[facility] [address]vdzbgvs[address] [place] [address]Dr. Tishrowan Frazier UA PROTEIN Negative Normal NEGATIVE/ TRACE [facility] Comment on above: Performed By: #### Amelie CHAMBERS UAMIC ####[facility] [address]jxesjtbm[address] [place] [address]Dr. Tishrowan Frazier Urobilinogen Qn (U) 0.2 {Estrellita'U}/dL Normal 0.2 - 1. 0 [facility] Comment on above: Performed By: #### Amelie CHAMBERS UAMIC ####[facility] Xhdqwxuadr[address] [place] [address]Dr. Chrissy Frazier WBC NONE SEEN Normal NONE SEEN The [facility] Comment on above: Performed By: #### D RUGRPD, UAMIC ####[facility] Htx[address]tewduq[address] [place] [address]Dr. Chrissy Frazier AMMONIAon 01-03-2023 Ammonia (P) [Moles/Vol] 17 umol/L Normal 11-32 [facility] Comment on above: Performed By: #### A MM ####[facility] [address]ywcjzf[address] [place], [place] [address]Dr. Chrissy Frazier AMYLASEon 01-03-2023 Amylase [Catalytic activity/Vol] 38 U/L Normal 25-115 [facility] Comment on above: Performed By: #### L IPA, TERRENCE, CMP, MG ####[facility] [address]lqkatqeuu[address] [place] [address]Dr. Chrissy Frazier CBC AUTO DIFFon 01-03-2023 BASO # 0.1 103/ul Normal 0.0-0.1 [facility] Comment on above: Performed By: #### C BC ####[facility] Yvxzonbgkx[address] [place] [address]Dr. Chrissy Frazier Basophils/100 WBC (Bld) 0.4 % Normal 0.2-2.0 [facility] Comment on above: Performed By: #### C BC ####[facility] Fofpdekxek[address] [place], [place] [address]Dr. Chrissy Frazier EO # 0.1 103/ul Normal 0.0-0.7 [facility] Comment on above: Performed By: #### C BC ####[facility] Pbadqavmow[address] [place], [place] [address]Dr. Chrissy Frazier Eosinophils/100 WBC (Bld) 0.3 % Critically low 0.9-7.0 [facility] Comment on above: Performed By: #### C BC ####[facility] Yeztfuebtd[address] [place] [address]Dr. Chrissy Frazier Erythrocyte distribution width (RBC) [Ratio] 13.7 % Normal 11.0-15.0 [facility] Comment on above: Performed By: #### C BC ####[facility] [address]ifnrettvw[address] [place] [address]Dr. Chrissy Frazier Hematocrit (Bld) [Volume fraction] 46.1 % Normal 42.0-54.0 [facility] Comment on above: Performed By: #### C BC ####[facility] Tfdujagmec[address] [place] [address]Dr. Chrissy Frazier Hemoglobin (Bld) [Mass/Vol] 15.4 g/dL Normal 14.0-18.0 [facility] Comment on above: Performed By: #### C BC ####[facility] [address]vdxweqoaw[address] [place], [place] [address]Dr. Chrissy Frazier IG # 0.11 10e3/ul Critically high 0.00-0.03 [facility] Comment on above: Performed By: #### C BC ####[facility] Ocyl[address]knss[address] [place], [place] [address]Dr. Chrissy Frazier IG % 0.6 % Critically high 0.0-0.5 [facility] Comment on above: Performed By: #### C BC ####[facility] N[address]chhxbiyz[address] [place], [place] [address]Dr. Chrissy Freddie LYMPH # 2.5 103/ul Normal 1.2-3.8 [facility] Comment on above: Performed By: #### C BC ####[facility] Ahclpnvzou[address] [place], [place] [address]Dr. Tishrowan Frazier Lymphocytes/100 WBC (Bld) 13.9 % Critically low 20.5-60.0 [facility] Comment on above: Performed By: #### C BC ####[facility] [address]qxwzx[address] [place], [place] [address]DrNancy Tishrowan Frazier MANUAL DIFF REQ NO Normal [facility] [facility] Comment on above: Performed By: #### C BC ####[facility] Ttpexwdsfr[address] [place], [place] [address]Dr. Tishrowan Frazier MCH (RBC) [Entitic mass] 28.6 pg Normal 25.9-34.0 [facility] Comment on above: Performed By: #### C BC ####[facility] Xltovxmzkt30[address] [place] [id number]. Chrissy Freddie MCHC (RBC) [Mass/Vol] 33.4 g/dL Normal 29.9-35.2 [facility] Comment on above: Performed By: #### C BC ####[facility] Nnstcnttgk3038 [place] [id number] Frazier MCV (RBC) [Entitic vol] 85.7 fL Normal 80.0-94.0 [facility] Comment on above: Performed By: #### C BC ####[facility] Dyepmcappj[address] [place], [place] [address]Dr. Chrissy Frazier MONO # 0.7 103/ul Normal 0.3-0.8 [facility] Comment on above: Performed By: #### C BC ####[facility] Irypvvknif[address] [place], [place] [address]Dr. Chrissy Frazier Monocytes/100 WBC (Bld) 4.0 % Normal 1.7-12.0 [facility] Comment on above: Performed By: #### C BC ####[facility] Qxicnjrqbx14[address] [place], [place] [address]DrNancy Frazier NEUT # 14.3 103/ul Critically high 1.4-6.5 [facility] Comment on above: Performed By: #### C BC ####[facility] Yrxykeiqli[address] [place], [place] [address]DrNancy Frazier Neutrophils/100 WBC (Bld) 80.8 % Critically high 43.0-75.0 The [facility] Comment on above: Performed By: #### C BC ####[facility] [address]fewh[address] [place], [place] [id number] Frazier Platelet mean volume (Bld) [Entitic vol] 10.4 fL Normal 9.5-13.5 The [facility] Comment on above: Performed By: #### C BC ####[facility] Ldwhnbuw[address] [place], [place] [address]DrNancy Frazier PLT 437 103/ul Normal 150-450 [facility] Comment on above: Performed By: #### C BC ####[facility] Icidfglgso4[address] [place] [address]Dr. Chrissy Frazier RBC 5.38 106/ul Normal 4.70-6.10 [facility] Comment on above: Performed By: #### C BC ####[facility] Ufywxjzhnu7[address] [place] [address]Dr. Chrissy Frazier WBC 17.7 103/ul Critically high 4.0-11.0 [facility] Comment on above: Performed By: #### C BC ####[facility] Rzpxjiieup4[address] [place] [address]Dr. Chrissy Frazier CULTURE BLOODon 01-03-2023 Microscopic examination of blood, culture Culture Observations: NO GROWTH AT 5 DAYS. Normal The [facility] Comment on above: Performed By: #### B LDCX1 ####[facility] Xlfepypeef01[address] [place], [place] [address]Dr. Chrissy Frazier Performed By: #### B LDCX2 ####[facility] Fbqojrrtvy98[address] [place], [place] [address]Dr. Chrissy Frazier ECHOCARDIO M/2D COMPLETEon 0 01-03-2023 ECHOCARDIO M/2D COMPLETE Normal The [facility] LACTATE/LACTIC ACIDon 2022 Lactate [Moles/Vol] 2.7 mmol/L Critically high 0.4-1.9 The [facility] Comment on above: Performed By: #### L ACT ####[facility] Jgwvypkytd[address] [place], [place] [address]Dr. Chrissy Frazier Lactate [Moles/Vol] 6.3 mmol/L Critically high 0.4-1.9 The [facility] Comment on above: Performed By: #### L ACT ####[facility] Xfgxskvljm8260[address] [place], [place] [address]Dr. Chrissy Frazier LIPASEon 01-03-2023 Lipase [Catalytic activity/Vol] 74.0 U/L Normal 73.0-393.0 The [facility] Comment on above: Performed By: #### L IPA, TERRENCE, CMP, MG ####[facility] Pmwgtmxvbl[address] [place] [address]Dr. Chrissy Frazier MAGNESIUMon 01-03-2023 Magnesium [Mass/Vol] 1.6 mg/dL Critically low 1.8-2.4 [facility] Comment on above: Performed By: #### L IPA, TERRENCE, CMP, MG ####[facility] Cpffcjtwhi4[address] [place] [address]Dr. Chrissy Frazier PROF 14(COMP METB)on 023 Albumin [Mass/Vol] 4.3 g/dL Normal 3.4-5.0 [facility] Comment on above: Performed By: #### L IPA, TERRENCE, CMP, MG ####[facility] Pgblpukrpk46[address] [place] [address]Dr. Chrissy Frazier Albumin/Globulin [Mass ratio] 1.1 {ratio} Normal [facility] Comment on above: Performed By: #### L IPA, TERRENCE, CMP, MG ####[facility] Jwcdadwtkz2[address] [place] [address]Dr. Chrissy Frazier ALP [Catalytic activity/Vol] 87 U/L Normal 46-116 [facility] Comment on above: Performed By: #### L IPA, TERRENCE, CMP, MG ####[facility] Mjfllnpmuq[address] [place], [place] [address]Dr. Chrissy Frazier ALT [Catalytic activity/Vol] 32 U/L Normal 16-63 [facility] Comment on above: Performed By: #### L IPA, TERRENCE, CMP, MG ####[facility] Zoqofekrzv[address] [place] [address]Dr. Chrissy Frazier Anion gap [Moles/Vol] 24.0 mmol/L Normal [facility] Comment on above: Performed By: #### L IPA, TERRENCE, CMP, MG ####[facility] Unahkemwjz8[address] [place] [address]Dr. Chrissy Frazier AST [Catalytic activity/Vol] 22 U/L Normal 15-37 [facility] Comment on above: Performed By: #### L IPA, TERRENCE, CMP, MG ####[facility] Eazvxpfuih29[address] [place] [address]Dr. Chrissy Frazier Bilirubin [Mass/Vol] 0.6 mg/dL Normal 0.2-1.0 The [facility] Comment on above: Performed By: #### L IPA, TERRENCE, CMP, MG ####[facility] Netcpshksv[address] [place] [address]Dr. Chrissy Frazier Calcium [Mass/Vol] 9.6 mg/dL Normal 8.5-10.1 The [facility] Comment on above: Performed By: #### L IPA, TERRENCE, CMP, MG ####[facility] Ezruukjazl[address] [place] [address]Dr. Chrissy Frazier Chloride [Moles/Vol] 103 mmol/L Normal 98-107 The [facility] Comment on above: Performed By: #### L IPA, TERRENCE, CMP, MG ####[facility] Nrtbpdurpx[address] [place] [address]Dr. Chrissy Frazier CO2 [Moles/Vol] 16.7 mmol/L Critically low 21.0-32.0 The [facility] Comment on above: Performed By: #### L IPA, TERRENCE, CMP, MG ####[facility] Omcpookndd[address] [place] [address]Dr. Chrissy Frazier Creatinine [Mass/Vol] 1.42 mg/dL Critically high 0.70-1.30 [facility] Comment on above: Performed By: #### L IPA, TERRENCE, CMP, MG ####[facility] [address]aydynsk[address] [place] [address]Dr. Chrissy Frazier EGFR-AF GREENLANDIC >60 Normal >=60 [facility] Comment on above: Performed By: #### L IPA, TERRENCE, CMP, MG ####[facility] Qezc[address]azkd[address] [place] [address]Dr. Chrissy Frazier EGFR-NON AF GREENLANDIC 58 mL/min/1.73m2 Critically low >=60 The [facility] Comment on above: Performed By: #### L IPA, TERRENCE, CMP, MG ####[facility] Fpotpjkzaf6[address] [place] [address]Dr. Chrissy Frazier Globulin (S) [Mass/Vol] 4.0 g/dL Normal [facility] Comment on above: Performed By: #### L IPA, TERRENCE, CMP, MG ####[facility] Ykxhvopbal[address] [place] [address]Dr. Chrissy Frazier Glucose [Mass/Vol] 149 mg/dL Critically high 74-106 [facility] Comment on above: Performed By: #### L IPA, TERRENCE, CMP, MG ####[facility] R[address]vihzzc48[address] [place] [address]Dr. Chrissy Frazier Potassium [Moles/Vol] 3.7 mmol/L Normal 3.5-5.1 [facility] Comment on above: Performed By: #### L IPA, TERRENCE, CMP, MG ####[facility] Ku[address]ikbvsf[address] [place] [address]Dr. Chrissy Fraizer Protein [Mass/Vol] 8.3 g/dL Critically high 6.4-8.2 [facility] Comment on above: Performed By: #### L IPA, TERRENCE, CMP, MG ####[facility] [address]ffipimnq[address] [place] [address]Dr. Chrissy Frazier Sodium [Moles/Vol] 140 mmol/L Normal 136-145 [facility] Comment on above: Performed By: #### L IPA, TERRENCE, CMP, MG ####[facility] Rvdlneyjac[address] [place] [address]Dr. Chrissy Frazier Urea nitrogen [Mass/Vol] 16.0 mg/dL Normal 7.0-18.0 [facility] Comment on above: Performed By: #### L IPA, TERRENCE, CMP, MG ####[facility] Vwoxbvsdps[address] [place] [address]Dr. Chrissy Frazier Urea nitrogen/Creatinine [Mass ratio] 11.3 mg/mg Normal [facility] Comment on above: Performed By: #### L IPA, TERRENCE, CMP, MG ####[facility] [address]zrwfybndv[address] [place] [address]Dr. Chrissy Frazier SED RATE [facility] 2022 SED RATE 37 mm/hr Critically high <=15 [facility] Comment on above: Performed By: #### S EDR ####[facility] [address] [place], [place] [address]Ca. Chrissy Frazier XR ABD FLAT UP_PA Enoch 01-03 XR ABD FLAT UP_PA CH Normal The [facility] CT HEART CORONARY ANGIOGRAMo n [...] CT examination Electronically signed: Maikel Chappell. Normal [facility] Office Visiton 11-24-2022 Follow-up visit [id number] Terence Montero 1990 M Date Provider Department Center 11/24/2022 3848-RAQUEL BANKS [facility] Family History Problem Relation Age of Onset Coronary artery disease Father Heart attack Father 54 Family Status - Relation Status Age at Father Level of Service:17667 [place] OFFICE/OUTPATIENT NEW MODERATE MDM 45-59 MINUTES Reason for Visit and Comments: abnormal stress test [Other] Normal [facility] CARDIAC STRESS TESTon 2021 CARDIAC STRESS TEST Normal [facility] AMYLASEon 10-24-2022 Amylase [Catalytic activity/Vol] 26 U/L Normal 25-115 The [facility] Comment on above: Performed By: #### C MP, LIPA, TERRENCE ####[facility] Docfkwixcq[address] [place], [place] [address]LdNancy Chrissy Frazier CBC AUTO DIFFon 10-24-2022 BASO # 0.0 103/ul Normal 0.0-0.1 [facility] Comment on above: Performed By: #### C BC ####[facility] Jmxnjyaxjv[address] [place] [id number]. Chrissy Frazier Basophils/100 WBC (Bld) 0.2 % Normal 0.2-2.0 The [facility] Comment on above: Performed By: #### C BC ####[facility] Fyepqrcuof23[address] [place] [id number]. Chrissy Frazier EO # 0.1 103/ul Normal 0.0-0.7 The [facility] Comment on above: Performed By: #### C BC ####[facility] Jdvuafxltt[address] [place], [place] [address]Dr. Chrissy Frazier Eosinophils/100 WBC (Bld) 0.4 % Critically low 0.9-7.0 The [facility] Comment on above: Performed By: #### C BC ####[facility] Xlunuuzasi[address] [place], [place] [address]Dr. Chrissy Frazier Erythrocyte distribution width (RBC) [Ratio] 14.6 % Normal 11.0-15.0 The [facility] Comment on above: Performed By: #### C BC ####[facility] Q[address]obhoirwj[address] [place], [place] [address]Dr. Chrissy Frazier Hematocrit (Bld) [Volume fraction] 39.4 % Critically low 42.0-54.0 [facility] Comment on above: Performed By: #### C BC ####[facility] [address] [place], [place] [address]Dr. Chrissy Frazier Hemoglobin (Bld) [Mass/Vol] 13.2 g/dL Critically low 14.0-18.0 The [facility] Comment on above: Performed By: #### C BC ####[facility] Vlbvcuhsgt74[address] [place] [id number]. Chrissy Frazier IG # 0.07 10e3/ul Critically high 0.00-0.03 [facility] Comment on above: Performed By: #### C BC ####[facility] [address]omt[address]ea[address] [place], [place] [address]Dr. Chrissy Frazier IG % 0.5 % Normal 0.0-0.5 The [facility] Comment on above: Performed By: #### C BC ####[facility] Vmfpetpieu7166 [place] [id number]. Chrissy Frazier LYMPH # 3.7 103/ul Normal 1.2-3.8 The [facility] Comment on above: Performed By: #### C BC ####[facility] Zrgmmemxgk5815 [place], [place] [address]Jj. Chrissy Frazier Lymphocytes/100 WBC (Bld) 27.0 % Normal 20.5-60.0 The [facility] Comment on above: Performed By: #### C BC ####[facility] Eiafeiwghj2[address] [place] [phone]. Chrissy Freddie MANUAL DIFF REQ NO Normal [facility] Comment on above: Performed By: #### C BC ####[facility] [address]rmyirctkl20[address] [place] [id number]. Chrissy Freddie MCH (RBC) [Entitic mass] 27.8 pg Normal 25.9-34.0 The [facility] Comment on above: Performed By: #### C BC ####[facility] Tqhbuqihmx47[address] [place] [id number]. Chrissy Frazier MCHC (RBC) [Mass/Vol] 33.5 g/dL Normal 29.9-35.2 [facility] Comment on above: Performed By: #### C BC ####[facility] Klrhenjqyh5[address] [place] [phone]. Chrissy Freddie MCV (RBC) [Entitic vol] 82.9 fL Normal 80.0-94.0 [facility] Comment on above: Performed By: #### C BC ####[facility] Cajgmaetml[address] [place] [id number]. Chrissy Freddie MONO # 1.2 103/ul Critically high 0.3-0.8 [facility] Comment on above: Performed By: #### C BC ####[facility] Nuylklroce56[address] [place] [id number]. Chrissy Freddie Monocytes/100 WBC (Bld) 8.4 % Normal 1.7-12.0 The [facility] Comment on above: Performed By: #### C BC ####[facility] Vuvihqlimx40[address] [place] [id number]. Chrissy Frazier NEUT # 8.8 103/ul Critically high 1.4-6.5 [facility] Comment on above: Performed By: #### C BC ####[facility] Ehpxomyfwh6783 [place] [id number]. Chrissy Frazier Neutrophils/100 WBC (Bld) 63.5 % Normal 43.0-75.0 [facility] Comment on above: Performed By: #### C BC ####[facility] Sumrypptlh5[address] [place] [phone]. Chrissy Frazier Platelet mean volume (Bld) [Entitic vol] 10.7 fL Normal 9.5-13.5 The [facility] Comment on above: Performed By: #### C BC ####[facility] Kvixbrrkmw4964 [place] [phone]. Chrissy Frazier PLT 291 103/ul Normal 150-450 [facility] Comment on above: Performed By: #### C BC ####[facility] Htlxncrixp4463 [place] [phone]. Chrissy Frazier RBC 4.75 106/ul Normal 4.70-6.10 [facility] Comment on above: Performed By: #### C BC ####[facility] Ukpxttcurp4[address] [place] [phone]. Chrissy Frazier WBC 13.8 103/ul Critically high 4.0-11.0 [facility] Comment on above: Performed By: #### C BC ####[facility] Nameeqiuam8068 [place] [phone]. Chrissy Freddie LIPASEon 10-24-2022 Lipase [Catalytic activity/Vol] 44.0 U/L Critically low 73.0-393.0 The [facility] Comment on above: Performed By: #### C MP, LIPA, TERRENCE ####[facility] Fbiesxkuoc0457 [place] [phone]. Chrissy Frazier PROF 14(COMP METB)on 022 Albumin [Mass/Vol] 3.4 g/dL Normal 3.4-5.0 The [facility] Comment on above: Performed By: #### C MP, LIPA, TERRENCE ####[facility] Nvbmojcjpz28[address] [place] [address]Dr. Tishrowan Freddie Albumin/Globulin [Mass ratio] 0.9 {ratio} Normal [facility] Comment on above: Performed By: #### C MP, LIPA, TERRENCE ####[facility] Bxlacutfug8[address] [place] [address]Dr. Chrissy Freddie ALP [Catalytic activity/Vol] 67 U/L Normal 46-116 [facility] Comment on above: Performed By: #### C MP, LIPA, TERRENCE ####[facility] Lnuoxjjyhz[address] [place], [place] [address]Dr. Chrissy Frazier ALT [Catalytic activity/Vol] 25 U/L Normal 16-63 [facility] Comment on above: Performed By: #### C MP, LIPA, TERRENCE ####[facility] Ulpjqxckcz[address] [place], [place] [address]Dr. Tishrowan Freddie Anion gap [Moles/Vol] 14.5 mmol/L Normal [facility] Comment on above: Performed By: #### C MP LIPA, TERRENCE ####[facility] Fmsagxzekg[address] [place], [place] [address]Dr. Chrissy Freddie AST [Catalytic activity/Vol] 17 U/L Normal 15-37 [facility] Comment on above: Performed By: #### C MP, LIPA, TERRENCE ####[facility] Ttcmbgimkp13[address] [place], [place] [address]Dr. Chrissy Frazier Bilirubin [Mass/Vol] 0.5 mg/dL Normal 0.2-1.0 The [facility] Comment on above: Performed By: #### C MP, LIPA, TERRENCE ####[facility] Klwsg[address]vvi[address] [place], [place] [address]Dr. Chrissy Frazier Calcium [Mass/Vol] 8.6 mg/dL Normal 8.5-10.1 [facility] Comment on above: Performed By: #### C MP, LIPA, TERRENCE ####[facility] [address]wejy[address] [place], [place] [address]Dr. Chrissy Frazier Chloride [Moles/Vol] 106 mmol/L Normal 98-107 [facility] Comment on above: Performed By: #### C OSWALD ADAIR AMY ####[facility] Ievoaxgbfl36[address] [place] [address]Dr. Chrissy Frazier CO2 [Moles/Vol] 22.8 mmol/L Normal 21.0-32.0 [facility] Comment on above: Performed By: #### C OSWALD ADAIR, TERRENCE ####[facility] S[address]vpqchzk[address] [place], [place] [address]Dr. Chrissy Frazier Creatinine [Mass/Vol] 0.98 mg/dL Normal 0.70-1.30 The [facility] Comment on above: Performed By: #### C OSWALD ADAIR AMY ####[facility] Fpomhjupnp[address] [place], [place] [address]Dr. Chrissy Frazier EGFR-AF GRE[place]IC >60 Normal >=60 [facility] Comment on above: Performed By: #### C OSWALD ADAIR TERRENCE ####[facility] Kxqrxsrein89[address] [place], [place] [address]Dr. Chrissy Frazier EGFR-NON AF GRE[place]LANDIC >60 Normal >=60 [facility] Comment on above: Performed By: #### C OSWALD ADAIR TERRENCE ####[facility] Jbmkpqsegb5396 [place] [address]Dr. Chrissy Frazier Globulin (S) [Mass/Vol] 3.7 g/dL Normal [facility] Comment on above: Performed By: #### C OSWALD ADAIR TERRENCE ####[facility] Ojaqbaffoe[address] [place] [address]Dr. Chrissy Frazier Glucose [Mass/Vol] 115 mg/dL Critically high 74-106 [facility] Comment on above: Performed By: #### C OSWALD ADAIR, TERRENCE ####[facility] [address]qraliwewv[address] [place], [place] [address]Dr. Chirssy Frazier Potassium [Moles/Vol] 3.3 mmol/L Critically low 3.5-5.1 The [facility] Comment on above: Performed By: #### C TESSA ADAIRA, TERRENCE ####[facility] Pxejiykawz3520 [place] [address]Dr. Chrissy Frazier Protein [Mass/Vol] 7.1 g/dL Normal 6.4-8.2 [facility] Comment on above: Performed By: #### C MP, LIPA, TERRENCE ####[facility] Ryufqoxzqt[address] [place], [place] [address]Dr. Chrissy Frazier Sodium [Moles/Vol] 140 mmol/L Normal 136-145 The [facility] Comment on above: Performed By: #### C MP, LIPA, TERRENCE ####[facility] Iqemfffvfy[address] [place], [place] [address]Dr. Chrissy Frazier Urea nitrogen [Mass/Vol] 10.0 mg/dL Normal 7.0-18.0 The [facility] Comment on above: Performed By: #### C MP, LIPA, TERRENCE ####[facility] [address]xqvtnxrfi[address] [place], [place] [address]Dr. Chrissy Frazier Urea nitrogen/Creatinine [Mass ratio] 10.2 mg/mg Normal [facility] Comment on above: Performed By: #### C MP, LIPA, TERRENCE ####[facility] Owfexacbbe[address] [place], [place] [address]Dr. Chrissy Frazier AMYLASEon 10-23-2022 Amylase [Catalytic activity/Vol] 31 U/L Normal 25-115 [facility] Comment on above: Performed By: #### C MP, LIPA, TERRENCE ####[facility] Cfgbcxboxg[address] [place], [place] [address]Dr. Chrissy Frazier CBC AUTO DIFFon 10-23-2022 BASO # 0.1 103/ul Normal 0.0-0.1 [facility] Comment on above: Performed By: #### C BC ####[facility] Hpenhzfxwp[address] [place], [place] [address]Dr. Chrissy Frazier Basophils/100 WBC (Bld) 0.3 % Normal 0.2-2.0 [facility] Comment on above: Performed By: #### C BC ####[facility] Gcospnfeja[address] [place], [place] [address]Dr. Chrissy Frazier EO # 0.1 103/ul Normal 0.0-0.7 [facility] Comment on above: Performed By: #### C BC ####[facility] Vkvsuhnlwf4218 [place] [address]Dr. Chrissy Fraizer Eosinophils/100 WBC (Bld) 0.3 % Critically low 0.9-7.0 [facility] Comment on above: Performed By: #### C BC ####[facility] Yxxpqsyqwf8242 [place] [address]Dr. Chrissy Frazier Erythrocyte distribution width (RBC) [Ratio] 14.5 % Normal 11.0-15.0 [facility] Comment on above: Performed By: #### C BC ####[facility] Eesfezgmfy5[address] [place] [address]Dr. Chrissy Frazier Hematocrit (Bld) [Volume fraction] 44.0 % Normal 42.0-54.0 [facility] Comment on above: Performed By: #### C BC ####[facility] Evixhjdqzp27[address] [place] [address]Dr. Chrissy Frazier Hemoglobin (Bld) [Mass/Vol] 14.8 g/dL Normal 14.0-18.0 [facility] Comment on above: Performed By: #### C BC ####[facility] Zdbgedzvlf[address] [place] [address]Dr. Chrissy Frazier IG # 0.09 10e3/ul Critically high 0.00-0.03 The [facility] Comment on above: Performed By: #### C BC ####[facility] Wcwqzsmljh27[address] [place] [address]Dr. Chrissy Frazier IG % 0.5 % Normal 0.0-0.5 [facility] Comment on above: Performed By: #### C BC ####[facility] Ehcakehmaj75[address] [place] [address]Dr. Chrissy Frazier LYMPH # 3.6 103/ul Normal 1.2-3.8 [facility] Comment on above: Performed By: #### C BC ####[facility] Ojptqnkfdl76[address] [place] [address]Dr. Tishrowan Frazier Lymphocytes/100 WBC (Bld) 19.4 % Critically low 20.5-60.0 The [facility] Comment on above: Performed By: #### C BC ####[facility] T[address]xamlooiv[address] [place] [address]Dr. Tishrowan Frazier MANUAL DIFF REQ NO Normal The [facility] Comment on above: Performed By: #### C BC ####[facility] Bewzbmyfbs[address] [place] [address]Dr. Chrissy Freddie MCH (RBC) [Entitic mass] 28.1 pg Normal 25.9-34.0 The [facility] Comment on above: Performed By: #### C BC ####[facility] Vyumcxczhu[address] [place], [place] [address]Dr. Chrissy Frazier MCHC (RBC) [Mass/Vol] 33.6 g/dL Normal 29.9-35.2 The [facility] Comment on above: Performed By: #### C BC ####[facility] Dlxhkfekeu201[address] [place], [place] [address]Dr. Chrissy Frazier MCV (RBC) [Entitic vol] 83.5 fL Normal 80.0-94.0 The [facility] Comment on above: Performed By: #### C BC ####[facility] Imcelhydlq[address] [place], [place] [address]Dr. Chrissy Frazier MONO # 0.9 103/ul Critically high 0.3-0.8 The [facility] Comment on above: Performed By: #### C BC ####[facility] Crmnhtcgcd[address] [place], [place] [address]Dr. Chrissy Frazier Monocytes/100 WBC (Bld) 4.9 % Normal 1.7-12.0 The [facility] Comment on above: Performed By: #### C BC ####[facility] Chilyoersb[address] [place], [place] [address]Dr. Chrissy Frazier NEUT # 13.9 103/ul Critically high 1.4-6.5 The [facility] Comment on above: Performed By: #### C BC ####[facility] Cqjmnluyhi5[address] [place] [id number]. Chrissy Frazier Neutrophils/100 WBC (Bld) 74.6 % Normal 43.0-75.0 The [facility] Comment on above: Performed By: #### C BC ####[facility] Oqfimvyogm[address] [place] [id number]. Chrissy Frazier Platelet mean volume (Bld) [Entitic vol] 10.5 fL Normal 9.5-13.5 The [facility] Comment on above: Performed By: #### C BC ####[facility] Cbsmdylzgc50[address] [place] [id number]. Chrissy Frazier PLT 402 103/ul Normal 150-450 The [facility] Comment on above: Performed By: #### C BC ####[facility] Ldnsakblzr186[address] [place], [place] [address]Dr. Chrissy Frazier RBC 5.27 106/ul Normal 4.70-6.10 The [facility] Comment on above: Performed By: #### C BC ####[facility] Mbqnqoksad8[address] [place], [place] [address]Dr. Chrissy Frazier WBC 18.6 103/ul Critically high 4.0-11.0 The [facility] Comment on above: Performed By: #### C BC ####[facility] W[address]wpsnxk[address] [place], [place] [id number]. Chrissy Frazier CULTURE BLOODon 10-23-2022 Microscopic examination of blood, culture Culture Observations: NO GROWTH AT 5 DAYS. Normal [facility] Comment on above: Performed By: #### B LDCX2 ####[facility] T[address]rmqdwcrv[address] [place] [id number]. Chrissy Frazier Microscopic examination of blood, culture Culture Observations: NO GROWTH AT 5 DAYS. Normal [facility] Comment on above: Performed By: #### B LDCX1 ####[facility] Uafngutftt[address] [place], [place] [id number]. Chrissy Frazier CULTURE URINEon 10-23-2022 CULTURE URINE Culture Observations: NO GROWTH. Normal [facility] Comment on above: Performed By: #### U RCX ####[facility] Kldnjlfibp212[address] [place], [place] [address]Dr. Chrissy Frazier Covid-19 PCR (CVDTB)on SARS-CoV-2 (COVID-19) RNA RHIANNON+probe Ql (Unsp spec) Not detected Normal NOT DETECTED The [facility] Comment on above: Result Comment: [...] for this test is supported by the [place] of Health and Human Service's declaration that [...] be used). Performed By: #### C VDTBH ####[facility] [address] [place] [address]. Chrissy Frazier INFLUENZA A AND B AGon 10-23 INFLUANEGH SEE BELOW Normal The [facility] Comment on above: Result Comment: Nega tive for Flu A protein angiten. Infection due to Flu A cannot be ruled out. Flu A angiten in the sample may be below the detection limit of the test. Performed By: #### I NFLUAB ####[facility] Aqwykbzklb[address] [place], [place] [address]Dr. Chrissy Frazier INFLUBNEGH SEE BELOW Normal The [facility] Comment on above: Result Comment: Nega tive for Flu B protein antigen. Infection due to Flu B cannot be ruled out. Flu B antigen in the sample may be below the detection limit of the test. Performed By: #### I NFLUAB ####[facility] Dqlmpcmeqc47[address] [place], [place] [address]Dr. Chrissy [facility] INFLUENZA A AG Negative Normal NEGATIVE SEE COMMENT The [facility] Comment on above: Performed By: #### I NFLUAB ####[facility] Uqhodxxlrq[address] [place] [address]Dr. Chrissy Frazier INFLUENZA B AG Negative Normal NEGATIVE SEE COMMENT The [facility] Comment on above: Performed By: #### I NFLUAB ####[facility] Qketnzcsws95[address] [place] [address]Dr. Chrissy Frazier INTERNAL CONTROLS Within Normal Limits Normal Wi thin Normal Limits The [facility] Comment on above: Performed By: #### I NFLUAB ####[facility] Lnosfmukzs7967[address] [place], [place] [address]Dr. Chrissy Frazier LACTATE/LACTIC ACIDon 2021 Lactate [Moles/Vol] 2.1 mmol/L Critically high 0.4-1.9 [facility] Comment on above: Performed By: #### L ACT ####[facility] Oecbxvafpo0[address] [place], [place] [address]Dr. Chrissy Frazier Lactate [Moles/Vol] 6.9 mmol/L Critically high 0.4-1.9 [facility] Comment on above: Performed By: #### L ACT ####[facility] Zwfpumwpcm[address] [place], [place] [address]Dr. Chrissy Frazier LIPASEon 10-23-2022 Lipase [Catalytic activity/Vol] 72.0 U/L Critically low 73.0-393.0 [facility] Comment on above: Performed By: #### C OSWALD ADAIR AMY ####[facility] Qbytuftetc[address] [place], [place] [address]Dr. Chrissy Frazier PROF 14(COMP METB)on 022 Albumin [Mass/Vol] 3.9 g/dL Normal 3.4-5.0 The [facility] Comment on above: Performed By: #### C OSWALD ADAIR AMY ####[facility] Ktfxmmditb038[address] [place], [place] [address]Dr. Chrissy Frazier Albumin/Globulin [Mass ratio] 0.9 {ratio} Normal [facility] Comment on above: Performed By: #### C OSWALD ADAIR AMY ####[facility] V[address]zflvnuw[address] [place] [address]Dr. Chrissy Frazier ALP [Catalytic activity/Vol] 82 U/L Normal 46-116 The [facility] Comment on above: Performed By: #### C MP, LIPA, TERRENCE ####[facility] Izafcmpzzn[address] [place] [address]Dr. Chrissy Frazier ALT [Catalytic activity/Vol] 25 U/L Normal 16-63 The [facility] Comment on above: Performed By: #### C MP, LIPA, TERRENCE ####[facility] Aphlwvouks[address] [place] [address]Dr. Chrissy Frazier Anion gap [Moles/Vol] 18.1 mmol/L Normal [facility] Comment on above: Performed By: #### C MP, LIPA, TERRENCE ####[facility] Tedqqtakyz76[address] [place], [place] [address]Dr. Chrissy Frazier AST [Catalytic activity/Vol] 17 U/L Normal 15-37 [facility] Comment on above: Performed By: #### C MP, LIPA, TERRENCE ####[facility] Bgtjaechwt[address] [place], [place] [address]Dr. Chrissy Frazier Bilirubin [Mass/Vol] 0.5 mg/dL Normal 0.2-1.0 [facility] Comment on above: Performed By: #### C MP, LIPA, TERRENCE ####[facility] Oxjssyfscu[address] [place] [address]Dr. Chrissy Frazier Calcium [Mass/Vol] 9.1 mg/dL Normal 8.5-10.1 [facility] Comment on above: Performed By: #### C MP, LIPA, TERRENCE ####[facility] Rczdtaaowe[address] [place] [address]Dr. Chrissy Frazier Chloride [Moles/Vol] 101 mmol/L Normal 98-107 [facility] Comment on above: Performed By: #### C MP, LIPA, TERRENCE ####[facility] Lkvtgmtsht6[address] [place] [address]Dr. Chrissy Frazier CO2 [Moles/Vol] 19.2 mmol/L Critically low 21.0-32.0 [facility] Comment on above: Performed By: #### C OSWALD ADAIR, TERRENCE ####[facility] Epoejpjesg[address] [place] [address]Dr. Chrissy Frazier Creatinine [Mass/Vol] 1.72 mg/dL Critically high 0.70-1.30 [facility] Comment on above: Performed By: #### C TESSA ADAIRA, TERRENCE ####[facility] Zrqhufvwaz[address] [place] [address]Dr. Chrissy Frazier EGFR-AF GREENLANDIC 56 mL/min/1.73m2 Critically low >=60 [facility] Comment on above: Performed By: #### C OSWALD ADAIR, TERRENCE ####[facility] Yoqliuuhno[address] [place], [place] [address]Dr. Chrissy Frazier EGFR-NON AF [place] 46 mL/min/1.73m2 Critically low >=60 [facility] Comment on above: Performed By: #### C MANA LIPA, TERRENCE ####[facility] Luacnmpdsg289[address] [place], [place] [address]Dr. Chrissy Frazier Globulin (S) [Mass/Vol] 4.2 g/dL Normal [facility] Comment on above: Performed By: #### C OSWALD ADAIR, TERRENCE ####[facility] Rsskshtbut[address] [place] [address]Dr. Chrissy Frazier Glucose [Mass/Vol] 126 mg/dL Critically high 74-106 [facility] Comment on above: Performed By: #### C MANA LIPA, TERRENCE ####[facility] Higdrgoczn[address] [place] [address]Dr. Chrissy Frazier Potassium [Moles/Vol] 3.3 mmol/L Critically low 3.5-5.1 [facility] Comment on above: Performed By: #### C MANA LIPA, TERRENCE ####[facility] Cyrogcrxsa[address] [place] [address]Dr. Tishrowan Frazier Protein [Mass/Vol] 8.1 g/dL Normal 6.4-8.2 The [facility] Comment on above: Performed By: #### C MANA LIPA, TERRENCE ####[facility] Rfnjayhfkt[address] [place] [address]Dr. Chrissy Frazier Sodium [Moles/Vol] 135 mmol/L Critically low 136-145 Th e [facility] Comment on above: Performed By: #### C MANA LIPA, TERRENCE ####[facility] Iyhuhokhud[address] [place], [place] [address]Dr. Chrissy Frazier Urea nitrogen [Mass/Vol] 13.0 mg/dL Normal 7.0-18.0 [facility] Comment on above: Performed By: #### C MANA LIPA, TERRENCE ####[facility] Xzlakbzjtj3[address] [place], [place] [address]Dr. Chrissy Frazier Urea nitrogen/Creatinine [Mass ratio] 7.6 mg/mg Normal The [facility] Comment on above: Performed By: #### C MANA LIPBean, TERRENCE ####[facility] Jzgetfxhuw[address] [place], [place] [address]Dr. Chrissy Frazier UA RANDOM W/MICROSCOPICon BACTERIA NONE SEEN Normal NONE SEEN The [facility] Comment on above: Performed By: #### U AMIC ####[facility] Rdpoalnnaf295[address] [place], [place] [address]Dr. Chrissy Frazier Bilirubin Ql (U) Negative Normal NEGATIVE The [facility] Comment on above: Performed By: #### U AMIC ####[facility] Tasnwscdun258[address] [place], [place] [address]Dr. Chrissy Frazier CAST NONE SEEN Normal NONE SEEN The [facility] Comment on above: Performed By: #### U AMIC ####[facility] Ergctcwvpk24[address] [place], [place] [address]Dr. Chrissy Frazier Clarity (U) CLEAR Normal CLEAR The [facility] Comment on above: Performed By: #### U AMIC ####[facility] Gycmamuzpy0313[address] [place], [place] [address]Dr. Chrissy Frazier Color (U) LT. YELLOW Normal YELLOW The [facility] Comment on above: Performed By: #### U AMIC ####[facility] Gqmkcezayi[address] [place], [place] [address]Dr. Chrissy Frazier Crystals LM Nom (Urine sed) NONE SEEN Normal NONE SEEN The [facility] Comment on above: Performed By: #### U AMIC ####[facility] Fyqmsvvyqn088[address] [place], [place] [address]Dr. Chrissy Frazier Epithelial cells LM Ql (Urine sed) FEW Abnormal NONE SEEN /RARE The [facility] Comment on above: Performed By: #### U AMIC ####[facility] Wppzjnktia0840[address] [place], [place] [address]Dr. Chrissy Frazeir Glucose Ql (U) Negative Normal NEGATIVE The [facility] Comment on above: Performed By: #### U AMIC ####[facility] Tnagfhtqwd29[address] [place], [place] [address]Dr. Chrissy Frazier Hemoglobin Ql (U) Negative Normal NEGATIVE The [facility] Comment on above: Performed By: #### U AMIC ####[facility] Gbdgxnmbdk55[address] [place], [place] [address]Dr. Chrissy Frazier Ketones Ql (U) 15 mg/dl Abnormal NEGATIVE The [facility] Comment on above: Performed By: #### U AMIC ####[facility] Srwpxhhsph[address] [place], [place] [address]Dr. Chrissy Frazier LEUKOCYTES Negative Normal NEGATIVE The [facility] Comment on above: Performed By: #### U AMIC ####[facility] Omdzeqnbjk303[address] [place], [place] [address]Dr. Chrissy Frazier MUCOUS NONE SEEN Normal NONE SEEN The [facility] Comment on above: Performed By: #### U AMIC ####[facility] Ocmpuoukmu3227[address] [place], [place] [address]Dr. Chrissy Frazier Nitrite Ql (U) Negative Normal NEGATIVE The [facility] Comment on above: Performed By: #### U AMIC ####[facility] Hnylmxbcec6540[address] [place], [place] [address]Dr. Chrissy Frazier pH (U) 6.0 [pH] Normal 5-9 The [facility] Comment on above: Performed By: #### U AMIC ####[facility] Emikinmcbq946[address] [place], [place] [address]Dr. Chrissy Frazier RBC 0-2 Normal 0-2 The [facility] Comment on above: Performed By: #### U AMIC ####[facility] Rbjscwhjqb[address] [place] [id number]. Chrissy Frazier SPEC GRAVITY 1.010 Normal 1.005-<=1.025 The [facility] Comment on above: Performed By: #### U AMIC ####[facility] Emavtngpeg6[address] [place] [address]Dr. Chrissy Freddie UA PROTEIN Negative Normal NEGATIVE/ TRACE The [facility] Comment on above: Performed By: #### U AMIC ####[facility] Bwkxrtgzhz[address] [place] [id number]. hCrissy Freddie Urobilinogen Qn (U) 0.2 {Estrellita'U}/dL Normal 0.2 - 1. 0 The [facility] Comment on above: Performed By: #### U AMIC ####[facility] Zcoknsrpje4738[address] [place], [place] [address]Dr. Chrissy Freddie WBC NONE SEEN Normal NONE SEEN The [facility] Comment on above: Performed By: #### U AMIC ####[facility] Ykklebuuht907[address] [place], [place] [address]Dr. Chrissy Freddie AMYLASEon 10-22-2022 Amylase [Catalytic activity/Vol] 28 U/L Normal 25-115 The [facility] Comment on above: Performed By: #### L IPA, CMP, TERRENCE ####[facility] Fveheeaeig1435[address] [place], [place] [address]Dr. Chrissy Freddie CBC AUTO DIFFon 10-22-2022 BASO # 0.0 103/ul Normal 0.0-0.1 The [facility] Comment on above: Performed By: #### C BC ####[facility] Jexfffafsj216[address] [place], [place] [address]Dr. Tishrowan Frazier Basophils/100 WBC (Bld) 0.2 % Normal 0.2-2.0 The [facility] Comment on above: Performed By: #### C BC ####[facility] Wsmitwusvg154[address] [place], [place] [address]Dr. Chrissy Frazier EO # 0.0 103/ul Normal 0.0-0.7 The [facility] Comment on above: Performed By: #### C BC ####[facility] Ifkxfkmwvl8428[address] [place], [place] [address]Dr. Chrissy Frazier Eosinophils/100 WBC (Bld) 0.1 % Critically low 0.9-7.0 The [facility] Comment on above: Performed By: #### C BC ####[facility] Xetlsmrulc[address] [place], [place] [address]Dr. Chrissy Frazier Erythrocyte distribution width (RBC) [Ratio] 14.4 % Normal 11.0-15.0 The [facility] Comment on above: Performed By: #### C BC ####[facility] Bklhehcyxp036[address] [place], [place] [address]Dr. Chrissy Frazier Hematocrit (Bld) [Volume fraction] 45.2 % Normal 42.0-54.0 [facility] Comment on above: Performed By: #### C BC ####[facility] Xbskjavbeu0111[address] [place], [place] [address]Dr. Chrissy Frazier Hemoglobin (Bld) [Mass/Vol] 15.4 g/dL Normal 14.0-18.0 The [facility] Comment on above: Performed By: #### C BC ####[facility] Pxlprsjppf28[address] [place], [place] [address]Dr. Tishrowan Freddie IG # 0.07 10e3/ul Critically high 0.00-0.03 [facility] Comment on above: Performed By: #### C BC ####[facility] Qgmujxioho79[address] [place], [place] [address]Dr. Chrissy Frazier IG % 0.4 % Normal 0.0-0.5 The [facility] Comment on above: Performed By: #### C BC ####[facility] Dboawbpeux[address] [place], [place] [address]Dr. Chrissy Frazier LYMPH # 2.0 103/ul Normal 1.2-3.8 The [facility] Comment on above: Performed By: #### C BC ####[facility] Riybzfdwod030[address] [place], [place] [address]DrNancy Frazier Lymphocytes/100 WBC (Bld) 12.2 % Critically low 20.5-60.0 The [facility] Comment on above: Performed By: #### C BC ####[facility] Qixwoehsff[address] [place] [address]DrNancy Frazier MANUAL DIFF REQ NO Normal The [facility] Comment on above: Performed By: #### C BC ####[facility] Qbnvkfjtcf6749 [place] [address]DrNancy Frazier MCH (RBC) [Entitic mass] 28.3 pg Normal 25.9-34.0 The [facility] Comment on above: Performed By: #### C BC ####[facility] Edfcdiaknw427[address] [place], [place] [address]DrNancy Frazier MCHC (RBC) [Mass/Vol] 34.1 g/dL Normal 29.9-35.2 The [facility] Comment on above: Performed By: #### C BC ####[facility] Cnqqkiqcmp[address] [place], [place] [address]DrNancy Frazier MCV (RBC) [Entitic vol] 82.9 fL Normal 80.0-94.0 The [facility] Comment on above: Performed By: #### C BC ####[facility] Buiyfnxdqz5[address] [place], [place] [address]DrNancy Frazier MONO # 0.3 103/ul Normal 0.3-0.8 The [facility] Comment on above: Performed By: #### C BC ####[facility] Dbfmgjwwew[address] [place], [place] [address]DrNancy Frazier Monocytes/100 WBC (Bld) 2.0 % Normal 1.7-12.0 The [facility] Comment on above: Performed By: #### C BC ####[facility] Stizmnqoth62[address] [place], [place] [address]DrNancy Frazier NEUT # 14.0 103/ul Critically high 1.4-6.5 The [facility] Comment on above: Performed By: #### C BC ####[facility] Plxlbbwrdt228[address] [place], [place] [address]DrNancy Frazier Neutrophils/100 WBC (Bld) 85.1 % Critically high 43.0-75.0 The [facility] Comment on above: Performed By: #### C BC ####[facility] X[address]fpfkmdi[address] [place] [address]Dr. Chrissy Frazier Platelet mean volume (Bld) [Entitic vol] 10.6 fL Normal 9.5-13.5 The [facility] Comment on above: Performed By: #### C BC ####[facility] Undrubztwf[address] [place] [address]Dr. Chrissy Frazier PLT 411 103/ul Normal 150-450 The [facility] Comment on above: Performed By: #### C BC ####[facility] Gtknakloea[address] [place], [place] [address]Dr. Chrissy Frazier RBC 5.45 106/ul Normal 4.70-6.10 The [facility] Comment on above: Performed By: #### C BC ####[facility] Empqadtqti4[address] [place], [place] [address]DrNancy Chrissy Frazier WBC 16.5 103/ul Critically high 4.0-11.0 The [facility] Comment on above: Performed By: #### C BC ####[facility] Hshkhuutdi24[address] [place], [place] [address]DrNancy Chrissy Frazier LIPASEon 10-22-2022 Lipase [Catalytic activity/Vol] 57.0 U/L Critically low 73.0-393.0 [facility] Comment on above: Performed By: #### L IPA CMP, TERRENCE ####[facility] Jnaqejmszf[address] [place] [address]DrNancy Tishrowan Frazier PROF 14(COMP METB)on 022 Albumin [Mass/Vol] 4.2 g/dL Normal 3.4-5.0 The [facility] Comment on above: Performed By: #### L IPA CMP, TERRENCE ####[facility] Gxdevjadvb[address] [place] [address]DrNnacy Chrissy Freddie Albumin/Globulin [Mass ratio] 1.0 {ratio} Normal [facility] Comment on above: Performed By: #### L IPA CMP, TERRENCE ####[facility] Aykrlmmacd[address] [place] [address]Dr. Chrissy Frazier ALP [Catalytic activity/Vol] 92 U/L Normal 46-116 The [facility] Comment on above: Performed By: #### L IPA, CMP, TERRENCE ####[facility] Adpodjokos[address] [place] [address]Dr. Chrissy Frazier ALT [Catalytic activity/Vol] 26 U/L Normal 16-63 The [facility] Comment on above: Performed By: #### L IPA, CMP, ETRRENCE ####[facility] Htvxpnguka[address] [place] [address]Dr. Chrissy Frazier Anion gap [Moles/Vol] 19.5 mmol/L Normal [facility] Comment on above: Performed By: #### L IPA, CMP, TERRENCE ####[facility] Bvjtpliyxe45[address] [place], [place] [address]Dr. Chrissy Frazier AST [Catalytic activity/Vol] 19 U/L Normal 15-37 [facility] Comment on above: Performed By: #### L IPA, CMP, TERRENCE ####[facility] Xbrqvmduvv35[address] [place], [place] [address]Dr. Chrissy Frazier Bilirubin [Mass/Vol] 0.7 mg/dL Normal 0.2-1.0 [facility] Comment on above: Performed By: #### L IPA, CMP, TERRENCE ####[facility] Qbxwqdwwfq[address] [place], [place] [address]Dr. Chrissy Frazier Calcium [Mass/Vol] 9.6 mg/dL Normal 8.5-10.1 [facility] Comment on above: Performed By: #### L IPA, CMP, TERRENCE ####[facility] [address] [place] [address]Dr. Chrissy Frazier Chloride [Moles/Vol] 102 mmol/L Normal 98-107 [facility] Comment on above: Performed By: #### L IPA, CMP, TERRENCE ####[facility] Kxdetdwmki[address] [place] [address]Dr. Chrissy Frazier CO2 [Moles/Vol] 19.1 mmol/L Critically low 21.0-32.0 [facility] Comment on above: Performed By: #### L IPA, CMP, TERRENCE ####[facility] Ex[address]irdjib[address] [place] [address]Dr. Chrissy Freddie Creatinine [Mass/Vol] 1.47 mg/dL Critically high 0.70-1.30 [facility] Comment on above: Performed By: #### L IPA, CMP, TERRENCE ####[facility] Xzekuedypv[address] [place] [address]Dr. Tishrowan Freddie EGFR-AF GREENLANDIC >60 Normal >=60 [facility] Comment on above: Performed By: #### L IPA, CMP, TERRENCE ####[facility] Cgksqlxcky[address] [place], [place] [address]Dr. Chrissy Frazier EGFR-NON AF GREEN[place]IC 56 mL/min/1.73m2 Critically low >=60 [facility] Comment on above: Performed By: #### L IPA, CMP, TERRENCE ####[facility] Dkgieqhhts[address] [place], [place] [address]Dr. Chrissy Frazier Globulin (S) [Mass/Vol] 4.3 g/dL Normal [facility] Comment on above: Performed By: #### L IPA CMP, TERRENCE ####[facility] Agkrranefn[address] [place], [place] [address]Dr. Chrissy Frazier Glucose [Mass/Vol] 189 mg/dL Critically high 74-106 [facility] Comment on above: Performed By: #### L IPA, CMP, TERRENCE ####[facility] Mfoxtuxqbg[address] [place], [place] [address]Dr. Chrissy Frazier Potassium [Moles/Vol] 4.6 mmol/L Normal 3.5-5.1 [facility] Comment on above: Performed By: #### L IPA, CMP, TERRENCE ####[facility] Bahchnkres[address] [place], [place] [address]Dr. Chrissy Frazier Protein [Mass/Vol] 8.5 g/dL Critically high 6.4-8.2 [facility] Comment on above: Performed By: #### L IPA, CMP, TERRENCE ####[facility] Qi[address]gs[address] [place], [place] [id number]. Chrissy Frazier Sodium [Moles/Vol] 136 mmol/L Normal 136-145 [facility] Comment on above: Performed By: #### L IPA CMP, TERRENCE ####[facility] [address]stywosr[address] [place] [address]Dr. Chrissy Frazier Urea nitrogen [Mass/Vol] 16.0 mg/dL Normal 7.0-18.0 [facility] Comment on above: Performed By: #### L IPA CMP, TERRENCE ####[facility] Fokakresck[address] [place], [place] [address]Dr. Chrissy Farzier Urea nitrogen/Creatinine [Mass ratio] 10.9 mg/mg Normal [facility] Comment on above: Performed By: #### L IPA CMP, TERRENCE ####[facility] Ihnqhwoqwh[address] [place], [place] [address]Dr. Chrissy Freddie AMYLASEon 09-03-2022 Amylase [Catalytic activity/Vol] 25 U/L Normal 25-115 [facility] Comment on above: Performed By: #### L IPA TERRENCE, CMP ####[facility] Tpurlzyjdk[address] [place], [place] [address]Dr. Chrissy Freddie CBC AUTO DIFFon 09-03-2022 BASO # 0.0 103/ul Normal 0.0-0.1 [facility] Comment on above: Performed By: #### C BC ####[facility] Bfcdiqqofb[address] [place], [place] [address]Dr. Chrissy Freddie Basophils/100 WBC (Bld) 0.1 % Critically low 0.2-2.0 [facility] Comment on above: Performed By: #### C BC ####[facility] Egulnfbwmn[address] [place], [place] [address]Dr. Tishrowan Frazier EO # 0.0 103/ul Normal 0.0-0.7 [facility] Comment on above: Performed By: #### C BC ####[facility] Wjlivfxpep[address] [place], [place] [address]Dr. Tishrowan Freddie Eosinophils/100 WBC (Bld) 0.1 % Critically low 0.9-7.0 [facility] Comment on above: Performed By: #### C BC ####[facility] [address]avyz[address] [place] [address]Dr. Chrissy Frazier Erythrocyte distribution width (RBC) [Ratio] 14.0 % Normal 11.0-15.0 [facility] Comment on above: Performed By: #### C BC ####[facility] Jefwcismox24[address] [place], [place] [address]Dr. Chrissy Frazier Hematocrit (Bld) [Volume fraction] 42.5 % Normal 42.0-54.0 [facility] Comment on above: Performed By: #### C BC ####[facility] Ytfzpsuvem10[address] [place], [place] [address]Dr. Chrissy Frazier Hemoglobin (Bld) [Mass/Vol] 14.1 g/dL Normal 14.0-18.0 [facility] Comment on above: Performed By: #### C BC ####[facility] Hnxiitogks[address] [place], [place] [address]Dr. Chrissy Frazier IG # 0.06 10e3/ul Critically high 0.00-0.03 [facility] Comment on above: Performed By: #### C BC ####[facility] Iybzurowxz[address] [place], [place] [address]Dr. Chrissy Frazier IG % 0.4 % Normal 0.0-0.5 [facility] Comment on above: Performed By: #### C BC ####[facility] Mzywxkddml23[address] [place], [place] [address]Dr. Chrissy Frazier LYMPH # 2.5 103/ul Normal 1.2-3.8 [facility] Comment on above: Performed By: #### C BC ####[facility] Krpntatryj[address] [place], [place] [address]Dr. Chrissy Frazier Lymphocytes/100 WBC (Bld) 16.3 % Critically low 20.5-60.0 [facility] Comment on above: Performed By: #### C BC ####[facility] Qanxzhaozd05[address] [place], [place] [address]Dr. Chrissy Frazier MANUAL DIFF REQ NO Normal [facility] Comment on above: Performed By: #### C BC ####[facility] [address] [place] [id number]. Chrissy Freddie MCH (RBC) [Entitic mass] 28.1 pg Normal 25.9-34.0 [facility] Comment on above: Performed By: #### C BC ####[facility] [address]aq[address]fy[address] [place] [id number]. Chrissy Freddie MCHC (RBC) [Mass/Vol] 33.2 g/dL Normal 29.9-35.2 [facility] Comment on above: Performed By: #### C BC ####[facility] [address]vlgc[address] [place] [address]Dr. Chrissy Freddie MCV (RBC) [Entitic vol] 84.8 fL Normal 80.0-94.0 [facility] Comment on above: Performed By: #### C BC ####[facility] Sgcfljwvfw[address] [place], [place] [address]DrNancy Frazier MONO # 1.1 103/ul Critically high 0.3-0.8 [facility] Comment on above: Performed By: #### C BC ####[facility] Bvoxgbhwah[address] [place], [place] [address]Dr. Tishrowan Frazier Monocytes/100 WBC (Bld) 7.4 % Normal 1.7-12.0 [facility] Comment on above: Performed By: #### C BC ####[facility] Cyxrsgsdyg[address] [place], [place] [address]Dr. Chrissy Frazier NEUT # 11.5 103/ul Critically high 1.4-6.5 [facility] Comment on above: Performed By: #### C BC ####[facility] [address] [place], [place] [address]DrNancy Frazier Neutrophils/100 WBC (Bld) 75.7 % Critically high 43.0-75.0 [facility] Comment on above: Performed By: #### C BC ####[facility] [address]lr[address] [place] [address]DrNancy Frazier Platelet mean volume (Bld) [Entitic vol] 10.6 fL Normal 9.5-13.5 [facility] Comment on above: Performed By: #### C BC ####[facility] [address] [place] [address]Dr. Chrissy Frazier PLT 310 103/ul Normal 150-450 [facility] Comment on above: Performed By: #### C BC ####[facility] Lacktnssbx[address] [place] [address]Dr. Chrissy Frazier RBC 5.01 106/ul Normal 4.70-6.10 [facility] Comment on above: Performed By: #### C BC ####[facility] W[address]trlq[address] [place] [address]Dr. Chrissy Frazier WBC 15.2 103/ul Critically high 4.0-11.0 [facility] Comment on above: Performed By: #### C BC ####[facility] Ftxersxnnr[address] [place], [place] [address]Dr. Chrissy Frazier LIPASEon 09-03-2022 Lipase [Catalytic activity/Vol] 46.0 U/L Critically low 73.0-393.0 [facility] Comment on above: Performed By: #### L TERRENCE VICTORIA, CMP ####[facility] Defytalxdb[address] [place], [place] [address]Dr. Chrissy Frazier PROF 14(COMP METB)on 022 Albumin [Mass/Vol] 3.7 g/dL Normal 3.4-5.0 [facility] Comment on above: Performed By: #### L TERRENCE VICTORIA, CMP ####[facility] [address] [place] [address]Dr. Chrissy Frazier Albumin/Globulin [Mass ratio] 1.0 {ratio} Normal [facility] Comment on above: Performed By: #### L TERRENCE VICTORIA, CMP ####[facility] Uuofemzqdm[address] [place], [place] [address]Dr. Chrissy Frazier ALP [Catalytic activity/Vol] 65 U/L Normal 46-116 [facility] Comment on above: Performed By: #### L TERRENCE VICTORIA, CMP ####[facility] Lskfbazkzq[address] [place], [place] [address]Dr. Chrissy Frazier ALT [Catalytic activity/Vol] 42 U/L Normal 16-63 [facility] Comment on above: Performed By: #### L TERRENCE VICTORIA, CMP ####[facility] [address]jfqw[address] [place] [address]Dr. Chrissy Frazier Anion gap [Moles/Vol] 14.4 mmol/L Normal [facility] Comment on above: Performed By: #### L TERRENCE VICTORIA, CMP ####[facility] L[address]opycqzf[address] [place] [address]Dr. Chrissy Frazier AST [Catalytic activity/Vol] 16 U/L Normal 15-37 [facility] Comment on above: Performed By: #### L TERRENCE VICTORIA, CMP ####[facility] F[address]oisvidk[address] [place] [address]Dr. Chrissy Frazier Bilirubin [Mass/Vol] 0.4 mg/dL Normal 0.2-1.0 [facility] Comment on above: Performed By: #### L TERRENCE VICTORIA, CMP ####[facility] [address]ib[address]zsmevd[address] [place] [address]Dr. Chrissy Frazier Calcium [Mass/Vol] 8.7 mg/dL Normal 8.5-10.1 [facility] Comment on above: Performed By: #### L TERRENCE VICTORIA, CMP ####[facility] [address]vbukkswgb[address] [place] [address]Dr. Chrissy Frazier Chloride [Moles/Vol] 105 mmol/L Normal 98-107 [facility] Comment on above: Performed By: #### L TERRENCE VICTORIA, CMP ####[facility] Anfmfirtjv[address] [place] [address]Dr. Chrissy Frazier CO2 [Moles/Vol] 22.6 mmol/L Normal 21.0-32.0 [facility] Comment on above: Performed By: #### L TERRENCE VICTORIA, CMP ####[facility] [address]fqjagqpu[address] [place] [address]Dr. Chrissy Frazier Creatinine [Mass/Vol] 1.11 mg/dL Normal 0.70-1.30 The [facility] Comment on above: Performed By: #### L TERRENCE VICTORIA, CMP ####[facility] [address]ons[address] [place] [id number]. Chrissy Frazire EGFR-AF GREEN[place]IC >60 Normal >=60 [facility] Comment on above: Performed By: #### L TERRENCE VICTORIA, CMP ####[facility] [address]rfuonkz[address] [place] [id number]. Chrissy Frazier EGFR-NON AF [place]IC >60 Normal >=60 [facility] Comment on above: Performed By: #### L TERRENCE VICTORIA, CMP ####[facility] Cigvdqtjxj[address] [place] [address]Dr. Chrissy Frazier Globulin (S) [Mass/Vol] 3.7 g/dL Normal [facility] Comment on above: Performed By: #### L TERRENCE VICTORIA, CMP ####[facility] Gvttaavsvc[address] [place] [address]Dr. Chrissy Frazier Glucose [Mass/Vol] 121 mg/dL Critically high 74-106 [facility] Comment on above: Performed By: #### L TERRENCE VICTORIA, CMP ####[facility] Epkdxwjxhl[address] [place] [address]Dr. Chrissy Frazier Potassium [Moles/Vol] 4.0 mmol/L Normal 3.5-5.1 [facility] Comment on above: Performed By: #### L TERRENCE VICTORIA, CMP ####[facility] Xmafvwfqox[address] [place], [place] [address]Dr. Chrissy Frazier Protein [Mass/Vol] 7.4 g/dL Normal 6.4-8.2 [facility] Comment on above: Performed By: #### L TERRENCE VICTORIA, CMP ####[facility] [address]imtyeuk[address] [place] [address]Dr. Chrissy Frazier Sodium [Moles/Vol] 138 mmol/L Normal 136-145 [facility] Comment on above: Performed By: #### L TERRENCE VICTORIA, CMP ####[facility] [address]shw[address]usvyf[address] [place] [address]Dr. Chrissy Frazier Urea nitrogen [Mass/Vol] 6.0 mg/dL Critically low 7.0-18.0 [facility] Comment on above: Performed By: #### L IPA, TERRENCE, CMP ####[facility] Ywfqoilxsu[address] [place], [place] [address]Dr. Chrissy Frazier Urea nitrogen/Creatinine [Mass ratio] 5.4 mg/mg Normal [facility] Comment on above: Performed By: #### L IPA, TERRENCE, CMP ####[facility] Fjirloxtog[address] [place], [place] [address]Dr. Chrissy Frazier AMYLASEon 09-02-2022 Amylase [Catalytic activity/Vol] 29 U/L Normal 25-115 [facility] Comment on above: Performed By: #### A MY, CMP, LIPA ####[facility] Cszfpmhqnz[address] [place], [place] [address]Dr. Chrissy Frazier CBC AUTO DIFFon 09-02-2022 BASO # 0.1 103/ul Normal 0.0-0.1 [facility] Comment on above: Performed By: #### C BC ####[facility] [address]zjwpcnao[address] [place], [place] [address]Dr. Chrissy Frazier Basophils/100 WBC (Bld) 0.4 % Normal 0.2-2.0 The [facility] Comment on above: Performed By: #### C BC ####[facility] [address]egnaedogg[address] [place], [place] [address]Dr. Chrissy Frazier EO # 0.1 103/ul Normal 0.0-0.7 [facility] Comment on above: Performed By: #### C BC ####[facility] Iifrlotzlu[address] [place], [place] [address]Dr. Chrissy Frazier Eosinophils/100 WBC (Bld) 0.7 % Critically low 0.9-7.0 [facility] Comment on above: Performed By: #### C BC ####[facility] Upzysdrhky[address] [place], [place] [address]Dr. Chrissy Frazier Erythrocyte distribution width (RBC) [Ratio] 13.7 % Normal 11.0-15.0 [facility] Comment on above: Performed By: #### C BC ####[facility] [address]yejtnevy[address] [place] [address]Dr. Chrissy Freddie Hematocrit (Bld) [Volume fraction] 48.3 % Normal 42.0-54.0 [facility] Comment on above: Performed By: #### C BC ####[facility] Ymmpcjlgyw[address] [place] [address]Dr. Chrissy Frazier Hemoglobin (Bld) [Mass/Vol] 16.0 g/dL Normal 14.0-18.0 [facility] Comment on above: Performed By: #### C BC ####[facility] [address]nerejqsx[address] [place] [address]Dr. Chrissy Frazier IG # 0.09 10e3/ul Critically high 0.00-0.03 [facility] Comment on above: Performed By: #### C BC ####[facility] Emfzximiau[address] [place], [place] [address]Dr. Chrissy Frazier IG % 0.5 % Normal 0.0-0.5 [facility] Comment on above: Performed By: #### C BC ####[facility] Kldrjzgixj[address] [place], [place] [address]Dr. Chrissy Frazier LYMPH # 3.7 103/ul Normal 1.2-3.8 [facility] Comment on above: Performed By: #### C BC ####[facility] M[address]qlqfgqwv[address] [place] [address]Dr. Chrissy Frazier Lymphocytes/100 WBC (Bld) 21.5 % Normal 20.5-60.0 [facility] Comment on above: Performed By: #### C BC ####[facility] Iknxhsssih[address] [place] [address]Dr. Chrissy Frazier MANUAL DIFF REQ NO Normal [facility] Comment on above: Performed By: #### C BC ####[facility] R[address]wihxd[address] [place], [place] [address]Dr. Chrissy Frazier MCH (RBC) [Entitic mass] 28.1 pg Normal 25.9-34.0 [facility] Comment on above: Performed By: #### C BC ####[facility] [address]fgebwscrx[address] [place], [place] [address]Dr. Chrissy Frazier MCHC (RBC) [Mass/Vol] 33.1 g/dL Normal 29.9-35.2 [facility] Comment on above: Performed By: #### C BC ####[facility] [address]wl[address] [place] [id number]. Chrissy Frazier MCV (RBC) [Entitic vol] 84.7 fL Normal 80.0-94.0 [facility] Comment on above: Performed By: #### C BC ####[facility] Zslmyswfok[address] [place] [address]Dr. Chrissy Frazier MONO # 0.7 103/ul Normal 0.3-0.8 [facility] Comment on above: Performed By: #### C BC ####[facility] Ylowmfyrqc[address] [place] [address]Dr. Chrissy Frazier Monocytes/100 WBC (Bld) 4.2 % Normal 1.7-12.0 [facility] Comment on above: Performed By: #### C BC ####[facility] Ycilzpbknz[address] [place] [address]Dr. Chrissy Frazier NEUT # 12.4 103/ul Critically high 1.4-6.5 [facility] Comment on above: Performed By: #### C BC ####[facility] Fqglyktwve6[address] [place] [address]Dr. Chrissy Frazier Neutrophils/100 WBC (Bld) 72.7 % Normal 43.0-75.0 [facility] Comment on above: Performed By: #### C BC ####[facility] Csjqtxhnyi8[address] [place] [address]Dr. Chrissy Frazier Platelet mean volume (Bld) [Entitic vol] 10.9 fL Normal 9.5-13.5 [facility] Comment on above: Performed By: #### C BC ####[facility] [address]mauiocln[address] [place], [place] [address]Dr. Chrissy Frazier PLT 386 103/ul Normal 150-450 [facility] Comment on above: Performed By: #### C BC ####[facility] Etwwbvsuww[address] [place] [address]Dr. Chrissy Frazier RBC 5.70 106/ul Normal 4.70-6.10 [facility] Comment on above: Performed By: #### C BC ####[facility] [address]yl[address]fm[address] [place] [id number]. Chrissy Frazier WBC 17.0 103/ul Critically high 4.0-11.0 [facility] Comment on above: Performed By: #### C BC ####[facility] [address] [place] [id number]. Chrissy Frazier Covid-19 PCR (CVDTBH)on 08-21 SARS-CoV-2 (COVID-19) RNA RHIANNON+probe Ql (Unsp spec) Not detected Normal NOT DETECTED The [facility] Comment on above: Result Comment: [...] for this test is supported by the [place] of Health and Human Service's declaration that [...] be used). Performed By: #### C VDTBH ####[facility] Log[address]ytmlzl[address] [place] [id number]. Chrissy Frazier LACTATE/LACTIC ACIDon 2021 Lactate [Moles/Vol] 7.1 mmol/L Critically high 0.4-1.9 The [facility] Comment on above: Performed By: #### L ACT ####[facility] [address]xcrbdags[address] [place] [address]Dr. Chrissy Frazier Lactate [Moles/Vol] 8.6 mmol/L Critically high 0.4-1.9 [facility] Comment on above: Performed By: #### L ACT ####[facility] Tagiowngbc[address] [place] [address]Dr. Chrissy Frazier LIPASEon 09-02-2022 Lipase [Catalytic activity/Vol] 60.0 U/L Critically low 73.0-393.0 [facility] Comment on above: Performed By: #### A MY, CMP, LIPA ####[facility] Dkpivvumzo[address] [place] [address]Dr. Chrissy Frazier POINT OF CARE GLUCOSEon 08-21 Glucose [Mass/Vol] 140 mg/dL Critically high 74-106 [facility] Comment on above: Performed By: #### P OCGLUC ####[facility] [address]fg[address] [place], [place] [address]Dr. Chrissy Frazier PROF 14(COMP METB)on 022 Albumin [Mass/Vol] 4.3 g/dL Normal 3.4-5.0 [facility] Comment on above: Performed By: #### A MY, CMP, LIPA ####[facility] [address]lmkisoffh[address] [place] [address]Dr. Chrissy Frazier Albumin/Globulin [Mass ratio] 1.0 {ratio} Normal [facility] Comment on above: Performed By: #### A MY, CMP, LIPA ####[facility] [address]pifxseojk[address] [place] [address]Dr. Chrissy Frazier ALP [Catalytic activity/Vol] 82 U/L Normal 46-116 [facility] Comment on above: Performed By: #### A MY, CMP, LIPA ####[facility] Dfpxtxiuov[address] [place] [address]Dr. Chrissy Frazier ALT [Catalytic activity/Vol] 48 U/L Normal 16-63 [facility] Comment on above: Performed By: #### A MY, CMP, LIPA ####[facility] Beizjksrma[address] [place] [address]Dr. Chrissy Frazier Anion gap [Moles/Vol] 25.3 mmol/L Normal [facility] Comment on above: Performed By: #### A MY, CMP, LIPA ####[facility] Cnmefwscuf[address] [place] [address]Dr. Chrissy Frazier AST [Catalytic activity/Vol] 33 U/L Normal 15-37 [facility] Comment on above: Performed By: #### A MY, CMP, LIPA ####[facility] [address]zzqzssmdd[address] [place] [address]Dr. Chrissy Frazier Bilirubin [Mass/Vol] 0.7 mg/dL Normal 0.2-1.0 [facility] Comment on above: Performed By: #### A MY, CMP, LIPA ####[facility] Lvbgtehnff[address] [place] [address]Dr. Chrissy Frazier Calcium [Mass/Vol] 9.5 mg/dL Normal 8.5-10.1 [facility] Comment on above: Performed By: #### A MY, CMP, LIPA ####[facility] [address]yom[address]zyqq[address] [place], [place] [address]Dr. Chrissy Frazier Chloride [Moles/Vol] 100 mmol/L Normal 98-107 [facility] Comment on above: Performed By: #### A MY, CMP, LIPA ####[facility] [address]ngwtq[address] [place] [address]Dr. Chrissy Frazier CO2 [Moles/Vol] 14.2 mmol/L Critically low 21.0-32.0 [facility] Comment on above: Performed By: #### A MY, CMP, LIPA ####[facility] [address]fycbzwsy[address] [place] [address]Dr. Chrissy Frazier Creatinine [Mass/Vol] 1.70 mg/dL Critically high 0.70-1.30 [facility] Comment on above: Performed By: #### A MY, CMP, LIPA ####[facility] [address]vtvmqjzy[address] [place] [address]Dr. Chrissy Frazier EGFR-AF [place] 57 mL/min/1.73m2 Critically low >=60 The [facility] Comment on above: Performed By: #### A MY, CMP, LIPA ####[facility] Lyqufgsujb[address] [place] [address]Dr. Chrissy Frazier EGFR-NON AF [place] 47 mL/min/1.73m2 Critically low >=60 [facility] Comment on above: Performed By: #### A MY, CMP, LIPA ####[facility] [address] [place] [address]Dr. Chrissy Frazier Globulin (S) [Mass/Vol] 4.2 g/dL Normal [facility] Comment on above: Performed By: #### A MY, CMP, LIPA ####[facility] Dujmgaekpm[address] [place] [address]Dr. Chrissy Frazier Glucose [Mass/Vol] 212 mg/dL Critically high 74-106 [facility] Comment on above: Performed By: #### A MY, CMP, LIPA ####[facility] Clspdhupxt[address] [place], [place] [address]Dr. Chrissy Frazier Potassium [Moles/Vol] 3.5 mmol/L Normal 3.5-5.1 [facility] Comment on above: Performed By: #### A MY, CMP, LIPA ####[facility] Bfewvfvohw[address] [place], [place] [address]Dr. Chrissy Frazier Protein [Mass/Vol] 8.5 g/dL Critically high 6.4-8.2 [facility] Comment on above: Performed By: #### A MY, CMP, LIPA ####[facility] [address]aukdcnf[address] [place] [address]Dr. Chrissy Frazier Sodium [Moles/Vol] 136 mmol/L Normal 136-145 [facility] Comment on above: Performed By: #### A MY, CMP, LIPA ####[facility] Urylzklhde[address] [place], [place] [address]Dr. Chrissy Frazier Urea nitrogen [Mass/Vol] 9.0 mg/dL Normal 7.0-18.0 [facility] Comment on above: Performed By: #### A MY, CMP, LIPA ####[facility] Niylbjaxnw[address] [place] [address]Dr. Chrissy Frazier Urea nitrogen/Creatinine [Mass ratio] 5.3 mg/mg Normal The [facility] Comment on above: Performed By: #### A MY, CMP, LIPA ####[facility] Xccjlphvus[address] [place] [address]Dr. Chrissy Frazier AMYLASEon 07-07-2022 Amylase [Catalytic activity/Vol] 33 U/L Normal 25-115 The [facility] Comment on above: Performed By: #### C MP, TERRENCE, BNP, LIPA ####[facility] Gxnlaemenv08[address] [place], [place] [address]Dr. Chrissy Frazier BNPon 07-07-2022 Natriuretic peptide B (Bld) [Mass/Vol] 29.0 pg/mL Normal <=450.0 The [facility] Comment on above: Performed By: #### C MP, TERRENCE, BNP, LIPA ####[facility] Tombvqguks[address] [place], [place] [address]Dr. Chrissy Frazier CBC AUTO DIFFon 07-07-2022 BASO # 0.0 103/ul Normal 0.0-0.1 [facility] Comment on above: Performed By: #### C BC ####[facility] Trtsxmsptb[address] [place], [place] [address]Dr. Chrissy Frazier Basophils/100 WBC (Bld) 0.4 % Normal 0.2-2.0 The [facility] Comment on above: Performed By: #### C BC ####[facility] Fakkdxibwn[address] [place], [place] [address]Dr. Chrissy Frazier EO # 0.3 103/ul Normal 0.0-0.7 The [facility] Comment on above: Performed By: #### C BC ####[facility] Ihosnecrzw64[address] [place], [place] [address]Dr. Chrissy Frazier Eosinophils/100 WBC (Bld) 3.0 % Normal 0.9-7.0 The [facility] Comment on above: Performed By: #### C BC ####[facility] Hxmgftqgnb8436[address] [place], [place] [address]Dr. Chrissy Frazier Erythrocyte distribution width (RBC) [Ratio] 14.0 % Normal 11.0-15.0 The [facility] Comment on above: Performed By: #### C BC ####[facility] Ygiomeqbsb[address] [place] [address]DrNancy Frazier Hematocrit (Bld) [Volume fraction] 42.8 % Normal 42.0-54.0 [facility] Comment on above: Performed By: #### C BC ####[facility] Jxmkidldmk35[address] [place] [address]DrNancy Frazier Hemoglobin (Bld) [Mass/Vol] 14.3 g/dL Normal 14.0-18.0 The [facility] Comment on above: Result Comment: IV F LUIDS RUNNING Performed By: #### C BC ####[facility] Zgjdlwukhd86[address] [place], [place] [address]DrNancy Frazier IG # 0.05 10e3/ul Critically high 0.00-0.03 [facility] Comment on above: Performed By: #### C BC ####[facility] Xaobwtdtqm[address] [place], [place] [address]DrNancy Frazier IG % 0.5 % Normal 0.0-0.5 [facility] Comment on above: Performed By: #### C BC ####[facility] Yokipvyxkj[address] [place], [place] [address]DrNancy Frazier LYMPH # 2.4 103/ul Normal 1.2-3.8 The [facility] Comment on above: Performed By: #### C BC ####[facility] Pcnrfbrvlf16[address] [place], [place] [address]DrNancy Frazier Lymphocytes/100 WBC (Bld) 25.5 % Normal 20.5-60.0 The [facility] Comment on above: Performed By: #### C BC ####[facility] Ctyraqvwnx[address] [place], [place] [address]DrNancy Frazier MANUAL DIFF REQ NO Normal The [facility] Comment on above: Performed By: #### C BC ####[facility] Ixhcqjzncl04[address] [place] [address]DrNancy Frazier MCH (RBC) [Entitic mass] 28.5 pg Normal 25.9-34.0 The [facility] Comment on above: Performed By: #### C BC ####[facility] X[address] [place] [id number]. Chrissy Freddie MCHC (RBC) [Mass/Vol] 33.4 g/dL Normal 29.9-35.2 The [facility] Comment on above: Performed By: #### C BC ####[facility] Bemihuifve[address] [place] [id number] Frazier MCV (RBC) [Entitic vol] 85.3 fL Normal 80.0-94.0 [facility] Comment on above: Performed By: #### C BC ####[facility] Xarefobkgg[address] [place], [place] [address]DrNancy Frazier MONO # 0.7 103/ul Normal 0.3-0.8 The [facility] Comment on above: Performed By: #### C BC ####[facility] Pmfnhubitn06[address] [place], [place] [address]Dr. Chrissy Frazier Monocytes/100 WBC (Bld) 7.8 % Normal 1.7-12.0 The [facility] Comment on above: Performed By: #### C BC ####[facility] Drydtxulwd[address] [place], [place] [address]Dr. Chrissy Frazier NEUT # 5.8 103/ul Normal 1.4-6.5 The [facility] Comment on above: Performed By: #### C BC ####[facility] Fbocbenpit[address] [place], [place] [address]Dr. Chrissy Frazier Neutrophils/100 WBC (Bld) 62.8 % Normal 43.0-75.0 The [facility] Comment on above: Performed By: #### C BC ####[facility] Dzfeudtjmq47[address] [place], [place] [address]DrNancy Frazier Platelet mean volume (Bld) [Entitic vol] 10.8 fL Normal 9.5-13.5 The [facility] Comment on above: Performed By: #### C BC ####[facility] Cqiwasxyde1734[address] [place], [place] [address]Dr. Chrissy Frazier PLT 310 103/ul Normal 150-450 The [facility] Comment on above: Performed By: #### C BC ####[facility] V[address]lu[address] [place] [id number]. Tishrowan Freddie RBC 5.02 106/ul Normal 4.70-6.10 The [facility] Comment on above: Performed By: #### C BC ####[facility] [address] [place], [place] [address]Nd. Tishrowan Freddie WBC 9.3 103/ul Normal 4.0-11.0 The [facility] Comment on above: Performed By: #### C BC ####[facility] F[address]fsdchxcm[address] [place] [phone]. Chrissy Frazier CULTURE URINEon 07-07-2022 CULTURE URINE Culture Observations: NO GROWTH. Normal The [facility] Comment on above: Performed By: #### U RCX ####[facility] Frwzwiaajh[address] [place] [phone]. Chrissy Frazier DRUG SCREEN RAPID (URINE)on 07-07-2022 AMP Negative Normal NEGATIVE [facility] Comment on above: Performed By: #### D RUGRPD ####[facility] Upzdwtsier[address] [place] [id number]. Chrissy Frazier BAR Negative Normal NEGATIVE The [facility] Comment on above: Performed By: #### D RUGRPD ####[facility] Ifnubddvyp60[address] [place] [phone]. Chrissy Frazier BUP Negative Normal NEGATIVE The [facility] Comment on above: Performed By: #### D RUGRPD ####[facility] Jjjaalxepu[address] [place] [phone]. Chrissy Frazier BZO Positive Abnormal NEGATIVE The [facility] Comment on above: Performed By: #### D RUGRPD ####[facility] Ozrgqucndc6[address] [place] [phone]. Chrissy Frazier LAUREN Negative Normal NEGATIVE The [facility] Comment on above: Performed By: #### D RUGRPD ####[facility] Ckhzqtqkka36[address] [place] [phone]. Chrissy Frazier CUT-OFFS SEE BELOW Normal The [facility] Comment on above: Result Comment: [...] 300 ng/mL Performed By: #### D RUGRPD ####[facility] Aebpoosniq[address] [place], [place] [address]Dr. Chrissy Frazier DRUG CUT HEADER DRUG CLASS TEST SYSTEM CUT-OFF CONCENTRATIONS ARE FOLLOWS: Normal [facility] Comment on above: Performed By: #### D RUGRPD ####[facility] Qkqustggst18[address] [place], [place] [address]Dr. Chrissy Farzier mAMP Negative Normal NEGATIVE [facility] Comment on above: Performed By: #### D RUGRPD ####[facility] Eebrteutjj[address] [place], [place] [address]Dr. Chrissy Frazier MTD Negative Normal NEGATIVE The [facility] Comment on above: Performed By: #### D RUGRPD ####[facility] Eevsbsmzhq[address] [place], [place] [address]Dr. Chrissy Frazier OPI Negative Normal NEGATIVE [facility] Comment on above: Performed By: #### D RUGRPD ####[facility] Xvzthcwswf[address] [place], [place] [address]Dr. Chrissy Frazier OXY Negative Normal NEGATIVE The [facility] Comment on above: Performed By: #### D RUGRPD ####[facility] Mpfpqewkkj[address] [place], [place] [address]Dr. Chrissy Frazier PCP Negative Normal NEGATIVE [facility] Comment on above: Performed By: #### D RUGRPD ####[facility] Andjfznlxm[address] [place], [place] [address]Dr. Chrissy Frazier PPX Negative Normal NEGATIVE [facility] Comment on above: Performed By: #### D RUGRPD ####[facility] Ssglyvelyn[address] [place] [address]Dr. Chrissy Frazier TCA Positive Abnormal NEGATIVE The [facility] Comment on above: Performed By: #### D RUGRPD ####[facility] Yeliipwdbd[address] [place] [address]Dr. Chrissy Frazier THC Positive Abnormal NEGATIVE The [facility] Comment on above: Performed By: #### D RUGRPD ####[facility] Jmfudqbzyb13[address] [place] [address]Dr. Chrissy Frazier LIPASEon 07-07-2022 Lipase [Catalytic activity/Vol] 118.0 U/L Normal 73.0-393.0 [facility] Comment on above: Performed By: #### L IPA ####[facility] Wfbcdzltvl[address] [place], [place] [address]Dr. Chrissy Frazier Lipase [Catalytic activity/Vol] 114.0 U/L Normal 73.0-393.0 [facility] Comment on above: Performed By: #### C MP, TERRENCE, BNP, LIPA ####[facility] Zovxlyywns[address] [place] [address]Dr. Chrissy Frazier PROF 14(COMP METB)on 022 Albumin [Mass/Vol] 3.4 g/dL Normal 3.4-5.0 [facility] Comment on above: Performed By: #### C MP, TERRENCE, BNP, LIPA ####[facility] Kpewnbakzj[address] [place] [address]Dr. Chrissy Frazier Albumin/Globulin [Mass ratio] 1.1 {ratio} Normal [facility] Comment on above: Performed By: #### C MP, TERRENCE, BNP, LIPA ####[facility] Joffuomijl[address] [place] [address]Dr. Chrissy Frazier ALP [Catalytic activity/Vol] 68 U/L Normal 46-116 The [facility] Comment on above: Performed By: #### C MP, TERRENCE, BNP, LIPA ####[facility] Piaefnwvla[address] [place] [address]Dr. Chrissy Frazier ALT [Catalytic activity/Vol] 93 U/L Critically high 16-63 [facility] Comment on above: Performed By: #### C MP, TERRENCE, BNP, LIPA ####[facility] Pifdpjowgz68[address] [place] [address]Dr. Chrissy Frazier Anion gap [Moles/Vol] 14.4 mmol/L Normal [facility] Comment on above: Performed By: #### C MP, TERRENCE, BNP, LIPA ####[facility] Fmpdjuvxxe[address] [place], [place] [address]Dr. Chrissy Frazier AST [Catalytic activity/Vol] 33 U/L Normal 15-37 The [facility] Comment on above: Performed By: #### C MP, TERRENCE, BNP, LIPA ####[facility] Bfkjnhnelu6[address] [place], [place] [address]Dr. Chrissy Frazier Bilirubin [Mass/Vol] 0.9 mg/dL Normal 0.2-1.0 [facility] Comment on above: Performed By: #### C MP, TERRENCE, BNP, LIPA ####[facility] Lwhoumfonk[address] [place], [place] [address]Dr. Chrissy Frazier Calcium [Mass/Vol] 8.2 mg/dL Critically low 8.5-10.1 Th e [facility] Comment on above: Performed By: #### C MP, TERRENCE, BNP, LIPA ####[facility] Jfzgzgpfnh[address] [place], [place] [address]Dr. Chrissy Frazier Chloride [Moles/Vol] 103 mmol/L Normal 98-107 The [facility] Comment on above: Performed By: #### C MP, TERRENCE, BNP, LIPA ####[facility] Cucfolhaql[address] [place], [place] [address]Dr. Chrissy Frazier CO2 [Moles/Vol] 22.9 mmol/L Normal 21.0-32.0 The [facility] Comment on above: Performed By: #### C MP, TERRENCE, BNP, LIPA ####[facility] Xfpniurokv70[address] [place], [place] [address]Dr. Chrissy Frazier Creatinine [Mass/Vol] 1.07 mg/dL Normal 0.70-1.30 The [facility] Comment on above: Performed By: #### C MP, TERRENCE, BNP, LIPA ####[facility] Fyttzmuntm[address] [place] [address]Dr. Chrissy Frazier EGFR-AF GREENLANDIC >60 Normal >=60 The [facility] Comment on above: Performed By: #### C MP, TERRENCE, BNP, LIPA ####[facility] Qsrqcbbqmo64[address] [place] [address]Dr. Chrissy Frazier EGFR-NON AF GRE[place]LANDIC >60 Normal >=60 The [facility] Comment on above: Performed By: #### C MP, TERRENCE, BNP, LIPA ####[facility] Afnuwitbzs67[address] [place] [address]Dr. Chrissy Frazier Globulin (S) [Mass/Vol] 3.2 g/dL Normal The [facility] Comment on above: Performed By: #### C MP, TERRENCE, BNP, LIPA ####[facility] Nmdccymkgm75[address] [place] [address]Dr. Chrissy Frazier Glucose [Mass/Vol] 96 mg/dL Normal 74-106 The [facility] Comment on above: Performed By: #### C MP, TERRENCE, BNP, LIPA ####[facility] Mifkscdhwj7[address] [place] [address]Dr. Chrissy Frazier Potassium [Moles/Vol] 3.3 mmol/L Critically low 3.5-5.1 The [facility] Comment on above: Performed By: #### C MP, TERRENCE, BNP, LIPA ####[facility] Uqvckmysok[address] [place] [address]Dr. Chrissy Frazier Protein [Mass/Vol] 6.6 g/dL Normal 6.4-8.2 The [facility] Comment on above: Performed By: #### C MP, TERRENCE, BNP, LIPA ####[facility] Pwprnfjaam[address] [place] [address]Dr. Chrissy Frazier Sodium [Moles/Vol] 137 mmol/L Normal 136-145 The [facility] Comment on above: Performed By: #### C MP, TERRENCE, BNP, LIPA ####[facility] Qgidansvfa3345 [place] [address]Dr. Chrissy Frazier Urea nitrogen [Mass/Vol] 13.0 mg/dL Normal 7.0-18.0 [facility] Comment on above: Performed By: #### C MP, TERRENCE, BNP, LIPA ####[facility] Jzanizcufd[address] [place], [place] [address]Dr. Chrissy Frazier Urea nitrogen/Creatinine [Mass ratio] 12.1 mg/mg Normal [facility] Comment on above: Performed By: #### C MP, TERRENCE, BNP, LIPA ####[facility] Vhtramhevm20[address] [place], [place] [address]Dr. Chrissy Frazier UA RANDOM W/MICROSCOPICon BACTERIA TRACE Abnormal NONE SEEN [facility] Comment on above: Performed By: #### U AMIC ####[facility] Qplxttbjvx62[address] [place], [place] [address]Dr. Chrissy Frazier Bilirubin Ql (U) Negative Normal NEGATIVE The [facility] Comment on above: Performed By: #### U AMIC ####[facility] Tjucaebmss[address] [place], [place] [address]Dr. Chrissy Frazier CAST NONE SEEN Normal NONE SEEN [facility] Comment on above: Performed By: #### U AMIC ####[facility] Tnhynaajfn[address] [place], [place] [address]Dr. Chrissy Frazier Clarity (U) CLEAR Normal CLEAR The [facility] Comment on above: Performed By: #### U AMIC ####[facility] Mriubgqxcf98[address] [place], [place] [address]Dr. Chrissy Frazier Color (U) YELLOW Normal YELLOW The [facility] Comment on above: Performed By: #### U AMIC ####[facility] Lwuhgrmkcd206[address] [place], [place] [address]Dr. Chrissy Frazier Crystals LM Nom (Urine sed) SEEN Abnormal NONE SEEN [facility] Comment on above: Performed By: #### U AMIC ####[facility] Vkpvzyqcrz[address] [place], [place] [address]Dr. Chrissy Frazier Epithelial cells LM Ql (Urine sed) RARE Normal NONE SEEN /RARE The [facility] Comment on above: Performed By: #### U AMIC ####[facility] S[address]kuawdd[address] [place] [address]Dr. Tishrowan Freddie Glucose Ql (U) Negative Normal NEGATIVE The [facility] Comment on above: Performed By: #### U AMIC ####[facility] Gujitxvmdv050[address] [place] [address]Dr. Chrissy Frazier Hemoglobin Ql (U) Negative Normal NEGATIVE The [facility] Comment on above: Performed By: #### U AMIC ####[facility] Xbqfkubjys48[address] [place] [address]Dr. Chrissy Frazier Ketones Ql (U) 15 mg/dl Abnormal NEGATIVE The [facility] Comment on above: Performed By: #### U AMIC ####[facility] Ctwryotxsd[address] [place], [place] [address]Dr. Chrissy Frazier LEUKOCYTES Negative Normal NEGATIVE The [facility] Comment on above: Performed By: #### U AMIC ####[facility] Tgqbvyffki[address] [place], [place] [address]Dr. Chrissy Freddie MUCOUS NONE SEEN Normal NONE SEEN The [facility] Comment on above: Performed By: #### U AMIC ####[facility] Bwfyatziil[address] [place] [address]Dr. Chrissy Frazier Nitrite Ql (U) Negative Normal NEGATIVE The [facility] Comment on above: Performed By: #### U AMIC ####[facility] Xkfsqmqhnz8070 [place] [address]Dr. Chrissy Frazier pH (U) 6.0 [pH] Normal 5-9 The [facility] Comment on above: Performed By: #### U AMIC ####[facility] Bpvxatxtxm[address] [place], [place] [address]Dr. Chrissy Frazier RBC 0-2 Normal 0-2 The [facility] Comment on above: Performed By: #### U AMIC ####[facility] Kweccporvs[address] [place], [place] [address]Dr. Chrissy Frazier SPEC GRAVITY 1.015 Normal 1.005-<=1.025 The [facility] Comment on above: Performed By: #### U AMIC ####[facility] Xsfoovjnbm55[address] [place] [address]Dr. Chrissy Frazier UA PROTEIN Negative Normal NEGATIVE/ TRACE The [facility] Comment on above: Performed By: #### U AMIC ####[facility] Dybnvtbese[address] [place] [address]Dr. Chrissy Frazier URIC ACID CRYSTALS RARE Normal [facility] Comment on above: Performed By: #### U AMIC ####[facility] Kkvctmnfem9552 [place] [address]Dr. Chrissy Frazier Urobilinogen Qn (U) 0.2 {Estrellita'U}/dL Normal 0.2 - 1. 0 [facility] Comment on above: Performed By: #### U AMIC ####[facility] Sixvtixaon19[address] [place], [place] [address]Dr. Chrissy Frazier WBC 0-2 Abnormal NONE SEEN The [facility] Comment on above: Performed By: #### U AMIC ####[facility] Mymavqtquv[address] [place] [address]Dr. Tishrowan Frazier AMYLASEon 07-06-2022 Amylase [Catalytic activity/Vol] 37 U/L Normal 25-115 The [facility] Comment on above: Performed By: #### C MP, LIPA, TERRENCE ####[facility] Lfaswwynxa[address] [place], [place] [address]Dr. Chrissy Frazier CBC AUTO DIFFon 07-06-2022 BASO # 0.1 103/ul Normal 0.0-0.1 [facility] Comment on above: Performed By: #### C BC ####[facility] Tokkyymgfm[address] [place], [place] [address]Dr. Chrissy Frazier Basophils/100 WBC (Bld) 0.4 % Normal 0.2-2.0 [facility] Comment on above: Performed By: #### C BC ####[facility] Hqdyahmpyv[address] [place], [place] [address]Dr. Chrissy Frazier EO # 0.1 103/ul Normal 0.0-0.7 The [facility] Comment on above: Performed By: #### C BC ####[facility] Ontqccfqyu84[address] [place] [address]Dr. Chrissy Frazier Eosinophils/100 WBC (Bld) 0.5 % Critically low 0.9-7.0 [facility] Comment on above: Performed By: #### C BC ####[facility] Ytgchobzeo[address] [place] [address]Dr. Chrissy Freddie Erythrocyte distribution width (RBC) [Ratio] 13.6 % Normal 11.0-15.0 [facility] Comment on above: Performed By: #### C BC ####[facility] Wxwxkgjiba54[address] [place], [place] [address]Dr. Chrissy Frazier Hematocrit (Bld) [Volume fraction] 47.9 % Normal 42.0-54.0 [facility] Comment on above: Performed By: #### C BC ####[facility] Cfsgtkxyjg[address] [place], [place] [address]Dr. Chrissy Freddie Hemoglobin (Bld) [Mass/Vol] 16.4 g/dL Normal 14.0-18.0 [facility] Comment on above: Performed By: #### C BC ####[facility] Vbpdtqskor[address] [place], [place] [address]Dr. Chrissy Frazier IG # 0.09 10e3/ul Critically high 0.00-0.03 [facility] Comment on above: Performed By: #### C BC ####[facility] Z[address]gyvvlc[address] [place], [place] [address]Dr. Chrissy Freddie IG % 0.6 % Critically high 0.0-0.5 The [facility] Comment on above: Performed By: #### C BC ####[facility] Lkweooqnwv[address] [place], [place] [address]DrNancy Frazier LYMPH # 2.5 103/ul Normal 1.2-3.8 The [facility] Comment on above: Performed By: #### C BC ####[facility] [address]kqxjx[address] [place], [place] [address]Dr. Chrissy Frazier Lymphocytes/100 WBC (Bld) 16.7 % Critically low 20.5-60.0 [facility] Comment on above: Performed By: #### C BC ####[facility] Mqsnmnqdgy4[address] [place] [address]DrNancy Frazier MANUAL DIFF REQ NO Normal [facility] Comment on above: Performed By: #### C BC ####[facility] Cyimumvtim38[address] [place] [address]DrNancy Frazier MCH (RBC) [Entitic mass] 28.1 pg Normal 25.9-34.0 [facility] Comment on above: Performed By: #### C BC ####[facility] Cbsjsgzemy[address] [place], [place] [address]DrNancy Frazier MCHC (RBC) [Mass/Vol] 34.2 g/dL Normal 29.9-35.2 The [facility] Comment on above: Performed By: #### C BC ####[facility] Gebzalofvi[address] [place], [place] [address]DrNancy Frazier MCV (RBC) [Entitic vol] 82.2 fL Normal 80.0-94.0 The [facility] Comment on above: Performed By: #### C BC ####[facility] Fatgbkbluq[address] [place], [place] [address]DrNancy Frazier MONO # 1.0 103/ul Critically high 0.3-0.8 The [facility] Comment on above: Performed By: #### C BC ####[facility] Kqfoyzdyke[address] [place], [place] [address]DrNancy Frazier Monocytes/100 WBC (Bld) 6.7 % Normal 1.7-12.0 The [facility] Comment on above: Performed By: #### C BC ####[facility] Ufqyumvngn[address] [place], [place] [address]DrNancy Frazier NEUT # 11.3 103/ul Critically high 1.4-6.5 The [facility] Comment on above: Performed By: #### C BC ####[facility] Tncumupfmz39[address] [place], [place] [address]DrNancy Frazier Neutrophils/100 WBC (Bld) 75.1 % Critically high 43.0-75.0 The [facility] Comment on above: Performed By: #### C BC ####[facility] Ncpdcucbef[address] [place] [address]Dr. Chrissy Frazier Platelet mean volume (Bld) [Entitic vol] 10.6 fL Normal 9.5-13.5 [facility] Comment on above: Performed By: #### C BC ####[facility] Tqxkvvgjmr[address] [place] [address]Dr. Chrissy Frazier PLT 416 103/ul Normal 150-450 The [facility] Comment on above: Performed By: #### C BC ####[facility] Otkrwseedw[address] [place] [address]Dr. Chrissy Frazier RBC 5.83 106/ul Normal 4.70-6.10 The [facility] Comment on above: Performed By: #### C BC ####[facility] Aqsztrzfne9[address] [place] [address]Dr. Chrissy Frazier WBC 15.0 103/ul Critically high 4.0-11.0 The [facility] Comment on above: Performed By: #### C BC ####[facility] Dvqhqhxfwe8[address] [place] [address]Dr. Chrissy Frazier [facility]on [facility]21 SARS-CoV-2 (COVID-19) RNA RHIANNON+probe Ql (Unsp spec) Not detected Normal NOT DETECTED The [facility] Comment on above: Result Comment: [...] for this test is supported by the [employer] Installer of Health and Human Service's declaration [...] be used). Performed By: #### C VDTBH ####[facility] Qjffjbdbgz7[address] [place] [address]Dr. Chrissy Frazier LIPASEon 07-06-2022 Lipase [Catalytic activity/Vol] 130.0 U/L Normal 73.0-393.0 [facility] Comment on above: Performed By: #### C MP LIPA, TERRENCE ####[facility] Vzqwgcixef68[address] [place] [address]Dr. Chrissy Frazier PROF 14(COMP METB)on 022 Albumin [Mass/Vol] 4.4 g/dL Normal 3.4-5.0 [facility] Comment on above: Performed By: #### C MP LIPA, TERRENCE ####[facility] Nfsiunvbsn78[address] [place] [address]Dr. Chrissy Frazier Albumin/Globulin [Mass ratio] 1.1 {ratio} Normal [facility] Comment on above: Performed By: #### C MP LIPA, TERRENCE ####[facility] Vfyyq[address]gbc[address] [place], [place] [address]Dr. Chrissy Frazier ALP [Catalytic activity/Vol] 83 U/L Normal 46-116 The [facility] Comment on above: Performed By: #### C MP, LIPA, TERRENCE ####[facility] Vijibipuwc60[address] [place] [address]Dr. Chrissy Frazier ALT [Catalytic activity/Vol] 107 U/L Critically high 16-63 The [facility] Comment on above: Performed By: #### C MP, LIPA, TERRENCE ####[facility] Pjtsfjqgpm8[address] [place] [address]DrNancy Frazier Anion gap [Moles/Vol] 20.5 mmol/L Normal [facility] Comment on above: Performed By: #### C MP, LIPA, TERRENCE ####[facility] Cqppyrycqo5[address] [place] [address]Dr. Chrissy Frazier AST [Catalytic activity/Vol] 46 U/L Critically high 15-37 The [facility] Comment on above: Performed By: #### C OSWALD ADAIR, TERRENCE ####[facility] Kxmpixsxbo26[address] [place] [address]Dr. Chrissy Frazier Bilirubin [Mass/Vol] 1.2 mg/dL Critically high 0.2-1.0 [facility] Comment on above: Performed By: #### C OSWALD ADAIR, TERRENCE ####[facility] Wmxllajeaf46[address] [place], [place] [address]Dr. Chrissy Frazier Calcium [Mass/Vol] 9.1 mg/dL Normal 8.5-10.1 [facility] Comment on above: Performed By: #### C OSWALD ADAIR, TERRENCE ####[facility] Uivzmwcqwt[address] [place], [place] [address]Dr. Chrissy Frazier Chloride [Moles/Vol] 100 mmol/L Normal 98-107 The [facility] Comment on above: Performed By: #### C OSWALD ADAIR, TERRENCE ####[facility] Fapqgomznf[address] [place], [place] [address]Dr. Chrissy Frazier CO2 [Moles/Vol] 18.6 mmol/L Critically low 21.0-32.0 The [facility] Comment on above: Performed By: #### C OSWALD ADAIR, TERRENCE ####[facility] Naghohpkxg22[address] [place], [place] [address]Dr. Chrissy Frazier Creatinine [Mass/Vol] 1.44 mg/dL Critically high 0.70-1.30 The [facility] Comment on above: Performed By: #### C OSWALD ADAIR, TERRENCE ####[facility] Wjccvemqyh27[address] [place], [place] [address]Dr. Chrissy Frazier EGFR-AF GREEN[place]IC >60 Normal >=60 The [facility] Comment on above: Performed By: #### C TESSA ADAIRA, TERRENCE ####[facility] Pkywqrurlf[address] [place], [place] [address]Dr. Chrissy Frazier EGFR-NON AF [place] 57 mL/min/1.73m2 Critically low >=60 The [facility] Comment on above: Performed By: #### C TESSA ADAIRA, TERRENCE ####[facility] Upskdxdnsw0[address] [place] [address]Dr. Chrissy Frazier Globulin (S) [Mass/Vol] 4.0 g/dL Normal [facility] Comment on above: Performed By: #### C MANA LIPA, TERRENCE ####[facility] Qyxwpkvyjj5675 [place] [address]Dr. Chrissy Frazier Glucose [Mass/Vol] 117 mg/dL Critically high 74-106 [facility] Comment on above: Performed By: #### C MANA LIPA, TERRENCE ####[facility] Neeiwusuuw[address] [place], [place] [address]Dr. Chrissy Frazier Potassium [Moles/Vol] 3.1 mmol/L Critically low 3.5-5.1 [facility] Comment on above: Performed By: #### C MANA LIPA, TERRENCE ####[facility] Wvfsratcyg[address] [place], [place] [address]Dr. Chrissy Frazier Protein [Mass/Vol] 8.4 g/dL Critically high 6.4-8.2 [facility] Comment on above: Performed By: #### C MANA LIPA, TERRENCE ####[facility] B[address]udcrgkbw[address] [place], [place] [address]Dr. Chrissy Frazier Sodium [Moles/Vol] 136 mmol/L Normal 136-145 [facility] Comment on above: Performed By: #### C MANA LIPA, TERRENCE ####[facility] Nxbvhxkavr[address] [place], [place] [address]Dr. Chrissy Frazier Urea nitrogen [Mass/Vol] 15.0 mg/dL Normal 7.0-18.0 [facility] Comment on above: Performed By: #### C MANA LIPA, TERRENCE ####[facility] Uhpowpfpew[address] [place], [place] [address]Dr. Chrissy Frazier Urea nitrogen/Creatinine [Mass ratio] 10.4 mg/mg Normal [facility] Comment on above: Performed By: #### C MANA LIPA, TERRENCE ####[facility] Qkhmydmhxi[address] [place], [place] [address]Dr. Chrissy Frazier CBC AUTO DIFFon 07-05-2022 BASO # 0.0 103/ul Normal 0.0-0.1 [facility] Comment on above: Performed By: #### C BC ####[facility] [address]ix[address] [place] [id number]. Chrissy Frazier Basophils/100 WBC (Bld) 0.3 % Normal 0.2-2.0 The [facility] Comment on above: Performed By: #### C BC ####[facility] Treqajhhro[address] [place] [id number]. Chrissy Freddie EO # 0.2 103/ul Normal 0.0-0.7 The [facility] Comment on above: Performed By: #### C BC ####[facility] Adkpazhwpq4[address] [place] [address]Dr. Chrissy Freddie Eosinophils/100 WBC (Bld) 1.5 % Normal 0.9-7.0 The [facility] Comment on above: Performed By: #### C BC ####[facility] Zgtvkpqbos7805 [place] [address]Dr. Chrissy Frazier Erythrocyte distribution width (RBC) [Ratio] 13.9 % Normal 11.0-15.0 [facility] Comment on above: Performed By: #### C BC ####[facility] Wisbvszqep38[address] [place] [id number]. Chrissy Frazier Hematocrit (Bld) [Volume fraction] 44.5 % Normal 42.0-54.0 The [facility] Comment on above: Performed By: #### C BC ####[facility] Yuurdszpny15[address] [place] [id number]. Chrissy Frazier Hemoglobin (Bld) [Mass/Vol] 14.8 g/dL Normal 14.0-18.0 The [facility] Comment on above: Performed By: #### C BC ####[facility] Zigpwutccn65[address] [place] [id number]. Tishrowan Freddie IG # 0.05 10e3/ul Critically high 0.00-0.03 [facility] Comment on above: Performed By: #### C BC ####[facility] Bry[address]uz[address] [place], [place] [address]Xl. Chrissy Frazier IG % 0.4 % Normal 0.0-0.5 The [facility] Comment on above: Performed By: #### C BC ####[facility] Rklajtmwwo1827 [place], [place] [address]Xb. Chrissy Frazier LYMPH # 3.3 103/ul Normal 1.2-3.8 The [facility] Comment on above: Performed By: #### C BC ####[facility] Ijicssqwvc59[address] [place] [id number]. Chrissy Frazier Lymphocytes/100 WBC (Bld) 29.1 % Normal 20.5-60.0 The [facility] Comment on above: Performed By: #### C BC ####[facility] Oxdvxsfbqq8824 [place] [phone]. Chrissy Frazier MANUAL DIFF REQ NO Normal The [facility] Comment on above: Performed By: #### C BC ####[facility] Vbdttzxpil4556 [place] [id number]. Chrissy Frazier MCH (RBC) [Entitic mass] 28.2 pg Normal 25.9-34.0 The [facility] Comment on above: Performed By: #### C BC ####[facility] Jauslembhx35[address] [place] [phone]. Chrissy Frazier MCHC (RBC) [Mass/Vol] 33.3 g/dL Normal 29.9-35.2 The [facility] Comment on above: Performed By: #### C BC ####[facility] Fvsbgtjksk0161 [place] [phone]. Chrissy Frazier MCV (RBC) [Entitic vol] 84.9 fL Normal 80.0-94.0 The [facility] Comment on above: Performed By: #### C BC ####[facility] Vpgmklxjwy0812 [place] [phone]. Chrissy Frazier MONO # 0.6 103/ul Normal 0.3-0.8 The [facility] Comment on above: Performed By: #### C BC ####[facility] Pzhcvpqzzq9581 [place] [phone]. Chrissy Frazier Monocytes/100 WBC (Bld) 5.4 % Normal 1.7-12.0 The [facility] Comment on above: Performed By: #### C BC ####[facility] Hhiislhock[address] [place] [phone]. Chrissy Frazier NEUT # 7.1 103/ul Critically high 1.4-6.5 The [facility] Comment on above: Performed By: #### C BC ####[facility] Djobrbwsnb2015 [place] [phone]. Chrissy Frazier Neutrophils/100 WBC (Bld) 63.3 % Normal 43.0-75.0 The [facility] Comment on above: Performed By: #### C BC ####[facility] Ufvlzpulom88[address] [place] [address]Dr. Chrissy Frazier Platelet mean volume (Bld) [Entitic vol] 9.9 fL Normal 9.5-13.5 The [facility] Comment on above: Performed By: #### C BC ####[facility] Ulbisvtpbv3882 [place] [phone]. Chrissy Frazier PLT 339 103/ul Normal 150-450 The [facility] Comment on above: Performed By: #### C BC ####[facility] Wajnjovqem3328 [place] [phone]. Chrissy Frazier RBC 5.24 106/ul Normal 4.70-6.10 The [facility] Comment on above: Performed By: #### C BC ####[facility] Lbwwcyynhc3188 [place] [phone]. Chrissy Frazier WBC 11.2 103/ul Critically high 4.0-11.0 The [facility] Comment on above: Performed By: #### C BC ####[facility] Tdeavebdmy1696 [place] [address]Dr. Chrissy Frazier PROF 14(COMP METB)on 022 Albumin [Mass/Vol] 3.8 g/dL Normal 3.4-5.0 [facility] Comment on above: Performed By: #### C MP ####[facility] Mtaqwtplww7291 [place] [phone]. Chrissy Frazier Albumin/Globulin [Mass ratio] 1.1 {ratio} Normal [facility] Comment on above: Performed By: #### C MP ####[facility] Mmnpxokyge6832 [place] [phone]. Chrissy Frazier ALP [Catalytic activity/Vol] 67 U/L Normal 46-116 [facility] Comment on above: Performed By: #### C MP ####[facility] Lmvlgvwcpd1534 [place] [address]Dr. Chrissy Freddie ALT [Catalytic activity/Vol] 75 U/L Critically high 16-63 [facility] Comment on above: Performed By: #### C MP ####[facility] Riwraizwuy[address] [place], [place] [address]Dr. Chrissy Freddie Anion gap [Moles/Vol] 14.3 mmol/L Normal [facility] Comment on above: Performed By: #### C MP ####[facility] Vpoycaawkr[address] [place], [place] [address]Dr. Chrissy Freddie AST [Catalytic activity/Vol] 40 U/L Critically high 15-37 [facility] Comment on above: Performed By: #### C MP ####[facility] Ehqpmwnhlw64[address] [place], [place] [address]Dr. Chrissy Freddie Bilirubin [Mass/Vol] 0.9 mg/dL Normal 0.2-1.0 [facility] Comment on above: Performed By: #### C MP ####[facility] Ntsfgvttws0046 [place] [address]Dr. Chrissy Freddie Calcium [Mass/Vol] 8.4 mg/dL Critically low 8.5-10.1 [facility] Comment on above: Performed By: #### C MP ####[facility] Lbbqgjoznu19[address] [place], [place] [address]Dr. Chrissy Frazier Chloride [Moles/Vol] 104 mmol/L Normal 98-107 The [facility] Comment on above: Performed By: #### C MP ####[facility] Skrcauavsf3775 [place] [address]Dr. Chrissy Frazier CO2 [Moles/Vol] 24.1 mmol/L Normal 21.0-32.0 [facility] Comment on above: Performed By: #### C MP ####[facility] Afxjlpkrqt6365 [place] [address]Dr. Chrissy Frazier Creatinine [Mass/Vol] 1.11 mg/dL Normal 0.70-1.30 The [facility] Comment on above: Performed By: #### C MP ####[facility] Wxhslyrwbv25[address] [place], [place] [address]Dr. Chrissy Freddie EGFR-AF [place] >60 Normal >=60 The [facility] Comment on above: Performed By: #### C MP ####[facility] Iucwvztetb6[address] [place], [place] [address]Dr. Chrissy Frazier EGFR-NON AF [place] >60 Normal >=60 The [facility] Comment on above: Performed By: #### C MP ####[facility] Gwjchdqgkb[address] [place], [place] [address]Dr. Chrissy Frazier Globulin (S) [Mass/Vol] 3.6 g/dL Normal The [facility] Comment on above: Performed By: #### C MP ####[facility] Bcqhttssyo[address] [place], [place] [address]Dr. Chrissy Frazier Glucose [Mass/Vol] 89 mg/dL Normal 74-106 The [facility] Comment on above: Performed By: #### C MP ####[facility] Ijelhxqdpb[address] [place], [place] [address]Dr. Chrissy Frazier Potassium [Moles/Vol] 3.4 mmol/L Critically low 3.5-5.1 The [facility] Comment on above: Performed By: #### C MP ####[facility] Xfhnvfgfrr[address] [place], [place] [address]Dr. Chrissy Frazier Protein [Mass/Vol] 7.4 g/dL Normal 6.4-8.2 The [facility] Comment on above: Performed By: #### C MP ####[facility] Dbsykwkjuk[address] [place], [place] [address]Dr. Chrissy Frazier Sodium [Moles/Vol] 139 mmol/L Normal 136-145 The [facility] Comment on above: Performed By: #### C MP ####[facility] Whdmpfxxhs85[address] [place], [place] [address]Dr. Chrissy Frazier Urea nitrogen [Mass/Vol] 10.0 mg/dL Normal 7.0-18.0 [facility] Comment on above: Performed By: #### C MP ####[facility] Lqdvndzede[address] [place], [place] [address]Dr. Chrissy Freddie Urea nitrogen/Creatinine [Mass ratio] 9.0 mg/mg Normal [facility] Comment on above: Performed By: #### C MP ####[facility] Cssgefzzno[address] [place], [place] [address]Dr. Chrissy Frazier CBC AUTO DIFFon 07-04-2022 BASO # 0.0 103/ul Normal 0.0-0.1 [facility] Comment on above: Performed By: #### C BC ####[facility] Yyofiqajwy[address] [place], [place] [address]Dr. Chrissy Freddie Basophils/100 WBC (Bld) 0.2 % Normal 0.2-2.0 [facility] Comment on above: Performed By: #### C BC ####[facility] Cbqglmdzzq[address] [place], [place] [address]Dr. Chrissy Frazier EO # 0.0 103/ul Normal 0.0-0.7 [facility] Comment on above: Performed By: #### C BC ####[facility] Wrdayyjssc[address] [place], [place] [address]Dr. Chrissy Freddie Eosinophils/100 WBC (Bld) 0.3 % Critically low 0.9-7.0 The [facility] Comment on above: Performed By: #### C BC ####[facility] Gxljjmlaxd47[address] [place], [place] [address]Dr. Chrissy Frazier Erythrocyte distribution width (RBC) [Ratio] 14.0 % Normal 11.0-15.0 [facility] Comment on above: Performed By: #### C BC ####[facility] [address] [place], [place] [address]Dr. Chrissy Frazier Hematocrit (Bld) [Volume fraction] 43.2 % Normal 42.0-54.0 The [facility] Comment on above: Performed By: #### C BC ####[facility] Ngrptyqbsq03[address] [place] [address]Dr. Chrissy Frazier Hemoglobin (Bld) [Mass/Vol] 14.6 g/dL Normal 14.0-18.0 The [facility] Comment on above: Performed By: #### C BC ####[facility] Bavdgmgwzt57[address] [place] [address]Dr. Chrissy Freddie IG # 0.11 10e3/ul Critically high 0.00-0.03 [facility] Comment on above: Performed By: #### C BC ####[facility] Npcwosbkja5179 [place] [address]Dr. Tishrowan Frazier IG % 0.8 % Critically high 0.0-0.5 The [facility] Comment on above: Performed By: #### C BC ####[facility] Ocgqlwiuma7[address] [place] [address]Dr. Chrissy Freddie LYMPH # 2.6 103/ul Normal 1.2-3.8 The [facility] Comment on above: Performed By: #### C BC ####[facility] Sddrebxfzu5557 [place] [address]Dr. Chrissy Freddie Lymphocytes/100 WBC (Bld) 18.3 % Critically low 20.5-60.0 The [facility] Comment on above: Performed By: #### C BC ####[facility] Gfvmihjxwp0643 [place] [address]DrNancy Tishrowan Frazier MANUAL DIFF REQ NO Normal [facility] Comment on above: Performed By: #### C BC ####[facility] Qelircvklw1093 [place] [address]DrNancy Chrissy Freddie MCH (RBC) [Entitic mass] 28.1 pg Normal 25.9-34.0 The [facility] Comment on above: Performed By: #### C BC ####[facility] [address]acc[address]hkzx[address] [place], [place] [address]Dr. Chrissy Frazier MCHC (RBC) [Mass/Vol] 33.8 g/dL Normal 29.9-35.2 The [facility] Comment on above: Performed By: #### C BC ####[facility] Gltblkntec3072 [place] [phone]. Chrissy Frazier MCV (RBC) [Entitic vol] 83.2 fL Normal 80.0-94.0 The [facility] Comment on above: Performed By: #### C BC ####[facility] Xlheovrink5216 [place] [phone]. Chrissy Freddie MONO # 0.7 103/ul Normal 0.3-0.8 The [facility] Comment on above: Performed By: #### C BC ####[facility] Cpiixmtwih37[address] [place] [address]Dr. Chrissy Frazier Monocytes/100 WBC (Bld) 5.3 % Normal 1.7-12.0 The [facility] Comment on above: Performed By: #### C BC ####[facility] Rdiurafrgz4896 [place] [phone]. Chrissy Freddie NEUT # 10.5 103/ul Critically high 1.4-6.5 [facility] Comment on above: Performed By: #### C BC ####[facility] Mknmzucyut7614 [place] [address]Dr. Chrissy Freddie Neutrophils/100 WBC (Bld) 75.1 % Critically high 43.0-75.0 The [facility] Comment on above: Performed By: #### C BC ####[facility] Znmbytkrmd8275 [place] [phone]. Chrissy Freddie Platelet mean volume (Bld) [Entitic vol] 10.6 fL Normal 9.5-13.5 The [facility] Comment on above: Performed By: #### C BC ####[facility] Ktyshkjvxv18[address] [place] [address]Dr. Tishrowan Freddie PLT 309 103/ul Normal 150-450 The [facility] Comment on above: Performed By: #### C BC ####[facility] Uqadwhuppw15[address] [place] [address]Dr. Chrissy Frazier RBC 5.19 106/ul Normal 4.70-6.10 The [facility] Comment on above: Performed By: #### C BC ####[facility] [address]jcwlxzuuh[address] [place] [id number]. Chrissy Frazier WBC 14.0 103/ul Critically high 4.0-11.0 [facility] Comment on above: Performed By: #### C BC ####[facility] Tds[address]xpy[address] [place] [address]Dr. Chrissy Frazier PROF 14(COMP METB)on 022 Albumin [Mass/Vol] 4.0 g/dL Normal 3.4-5.0 The [facility] Comment on above: Performed By: #### C MP ####[facility] Jlkdrzyetg[address] [place], [place] [address]Dr. Chrissy Frazier Albumin/Globulin [Mass ratio] 1.1 {ratio} Normal [facility] Comment on above: Performed By: #### C MP ####[facility] Pgknfguvym39[address] [place], [place] [address]Dr. Chrissy Frazier ALP [Catalytic activity/Vol] 67 U/L Normal 46-116 The [facility] Comment on above: Performed By: #### C MP ####[facility] Eauedscqpz42[address] [place], [place] [address]Dr. Chrissy Frazier ALT [Catalytic activity/Vol] 40 U/L Normal 16-63 The [facility] Comment on above: Performed By: #### C MP ####[facility] Raioveumnf432[address] [place], [place] [address]Dr. Chrissy Frazier Anion gap [Moles/Vol] 17.7 mmol/L Normal [facility] Comment on above: Performed By: #### C MP ####[facility] Pjtfjoumfg119[address] [place], [place] [address]Dr. Chrissy Frazier AST [Catalytic activity/Vol] 27 U/L Normal 15-37 [facility] Comment on above: Performed By: #### C MP ####[facility] Hrotltfmss218[address] [place], [place] [address]Dr. Chrissy Frazier Bilirubin [Mass/Vol] 0.8 mg/dL Normal 0.2-1.0 The [facility] Comment on above: Performed By: #### C MP ####[facility] Ubbzfodwnu[address] [place], [place] [address]Dr. Chrissy Frazier Calcium [Mass/Vol] 8.8 mg/dL Normal 8.5-10.1 [facility] Comment on above: Performed By: #### C MP ####[facility] Ogpehrygpq511[address] [place], [place] [address]Dr. Chrissy Frazier Chloride [Moles/Vol] 105 mmol/L Normal 98-107 The [facility] Comment on above: Performed By: #### C MP ####[facility] Zmktjyjpax36[address] [place], [place] [address]Dr. Chrissy Frazier CO2 [Moles/Vol] 16.5 mmol/L Critically low 21.0-32.0 The [facility] Comment on above: Performed By: #### C MP ####[facility] Pzsxjfsalw25[address] [place], [place] [address]Dr. Chrissy Frazier Creatinine [Mass/Vol] 1.02 mg/dL Normal 0.70-1.30 [facility] Comment on above: Performed By: #### C MP ####[facility] Qzhwdkwcth[address] [place], [place] [address]Dr. Chrissy Frazier EGFR-AF GRE[place]IC >60 Normal >=60 [facility] Comment on above: Performed By: #### C MP ####[facility] Ztomjddcaa4899[address] [place], [place] [address]Dr. Chrissy Frazier EGFR-NON AF [place] >60 Normal >=60 The [facility] Comment on above: Performed By: #### C MP ####[facility] Gadlclqegq714[address] [place], [place] [address]Dr. Chrissy Frazier Globulin (S) [Mass/Vol] 3.7 g/dL Normal The [facility] Comment on above: Performed By: #### C MP ####[facility] Dpujonyike7465[address] [place], [place] [address]Dr. Chrissy Frazier Glucose [Mass/Vol] 106 mg/dL Normal 74-106 The [facility] Comment on above: Performed By: #### C MP ####[facility] Yuhxopyfop[address] [place] [address]Dr. Chrissy Frazier Potassium [Moles/Vol] 3.2 mmol/L Critically low 3.5-5.1 [facility] Comment on above: Performed By: #### C MP ####[facility] Vrsgazdskl0879[address] [place], [place] [address]Dr. Chrissy Frazier Protein [Mass/Vol] 7.7 g/dL Normal 6.4-8.2 [facility] Comment on above: Performed By: #### C MP ####[facility] Uwiudlysyr734[address] [place], [place] [address]Dr. Chrissy Frazier Sodium [Moles/Vol] 136 mmol/L Normal 136-145 [facility] Comment on above: Performed By: #### C MP ####[facility] Nemzgtdpdu2249[address] [place], [place] [address]Dr. Chrissy Frazier Urea nitrogen [Mass/Vol] 10.0 mg/dL Normal 7.0-18.0 [facility] Comment on above: Performed By: #### C MP ####[facility] Daiylvdsau6813[address] [place], [place] [address]Dr. Chrissy Frazier Urea nitrogen/Creatinine [Mass ratio] 9.8 mg/mg Normal [facility] Comment on above: Performed By: #### C MP ####[facility] Lxrqbnepdt516[address] [place], [place] [address]Dr. Chrissy Frazier CBC AUTO DIFFon 07-03-2022 BASO # 0.1 103/ul Normal 0.0-0.1 [facility] Comment on above: Performed By: #### C BC ####[facility] Kdbqsvwynp0117[address] [place], [place] [address]Dr. Chrissy Frazier Basophils/100 WBC (Bld) 0.5 % Normal 0.2-2.0 [facility] Comment on above: Performed By: #### C BC ####[facility] Ejocflrdla359[address] [place], [place] [address]Dr. Chrissy Frazier EO # 0.1 103/ul Normal 0.0-0.7 The [facility] Comment on above: Performed By: #### C BC ####[facility] Zaxzaaddtk[address] [place] [address]Dr. Chrissy Freddie Eosinophils/100 WBC (Bld) 1.3 % Normal 0.9-7.0 The [facility] Comment on above: Performed By: #### C BC ####[facility] Dldxufoeah2769[address] [place], [place] [address]Dr. Chrissy Frazier Erythrocyte distribution width (RBC) [Ratio] 14.2 % Normal 11.0-15.0 The [facility] Comment on above: Performed By: #### C BC ####[facility] Ulbfxxuyfr9624[address] [place], [place] [address]Dr. Tishrowan Frazier Hematocrit (Bld) [Volume fraction] 41.7 % Critically low 42.0-54.0 The [facility] Comment on above: Performed By: #### C BC ####[facility] Hxvfbkbgmt8495[address] [place], [place] [address]Dr. Chrissy Frazier Hemoglobin (Bld) [Mass/Vol] 13.6 g/dL Critically low 14.0-18.0 The [facility] Comment on above: Performed By: #### C BC ####[facility] Detqwjaehg4349[address] [place], [place] [address]Dr. Chrissy Frazier IG # 0.04 10e3/ul Critically high 0.00-0.03 The [facility] Comment on above: Performed By: #### C BC ####[facility] Wrozwamiuo7733[address] [place], [place] [address]Dr. Chrissy Frazier IG % 0.4 % Normal 0.0-0.5 The [facility] Comment on above: Performed By: #### C BC ####[facility] Gwanpqzvck169[address] [place], [place] [address]Dr. Chrissy Frazier LYMPH # 3.5 103/ul Normal 1.2-3.8 The [facility] Comment on above: Performed By: #### C BC ####[facility] Pcczimgzxf629[address] [place], [place] [address]Dr. Chrissy Frazier Lymphocytes/100 WBC (Bld) 33.5 % Normal 20.5-60.0 The [facility] Comment on above: Performed By: #### C BC ####[facility] Zcdxgnjanb3[address] [place] [address]DrNancy Frazier MANUAL DIFF REQ NO Normal The [facility] Comment on above: Performed By: #### C BC ####[facility] Xbbijlzaxr60[address] [place] [address]DrNancy Frazier MCH (RBC) [Entitic mass] 27.9 pg Normal 25.9-34.0 The [facility] Comment on above: Performed By: #### C BC ####[facility] Pnveffbzth8723[address] [place], [place] [address]DrNancy Frazier MCHC (RBC) [Mass/Vol] 32.6 g/dL Normal 29.9-35.2 The [facility] Comment on above: Performed By: #### C BC ####[facility] Ggqsnwsjhb7[address] [place], [place] [address]DrNancy Frazier MCV (RBC) [Entitic vol] 85.6 fL Normal 80.0-94.0 The [facility] Comment on above: Performed By: #### C BC ####[facility] Sygbtynjps086[address] [place], [place] [address]DrNancy Frazier MONO # 0.7 103/ul Normal 0.3-0.8 The [facility] Comment on above: Performed By: #### C BC ####[facility] Qaolsomyqu804[address] [place], [place] [address]DrNancy Frazier Monocytes/100 WBC (Bld) 6.5 % Normal 1.7-12.0 The [facility] Comment on above: Performed By: #### C BC ####[facility] Huoxyjmuns2347[address] [place], [place] [address]DrNancy Frazier NEUT # 6.1 103/ul Normal 1.4-6.5 The [facility] Comment on above: Performed By: #### C BC ####[facility] Xmfkseeccu064[address] [place], [place] [address]Dr. Chrissy Frazier Neutrophils/100 WBC (Bld) 57.8 % Normal 43.0-75.0 [facility] Comment on above: Performed By: #### C BC ####[facility] Igoixijjhw34[address] [place] [address]DrNancy Frazier Platelet mean volume (Bld) [Entitic vol] 10.4 fL Normal 9.5-13.5 The [facility] Comment on above: Performed By: #### C BC ####[facility] Pxvldwjfwb4069[address] [place], [place] [address]DrNancy Frazier PLT 288 103/ul Normal 150-450 The [facility] Comment on above: Performed By: #### C BC ####[facility] Ccrnvimuzh[address] [place], [place] [address]DrNancy Frazier RBC 4.87 106/ul Normal 4.70-6.10 The [facility] Comment on above: Performed By: #### C BC ####[facility] Otqmenkpxe5675[address] [place], [place] [address]DrNancy Frazier WBC 10.5 103/ul Normal 4.0-11.0 The [facility] Comment on above: Performed By: #### C BC ####[facility] Vsajcdwxpi7465[address] [place], [place] [address]Dr. Chrissy Frazier PROF 14(COMP METB)on 022 Albumin [Mass/Vol] 3.6 g/dL Normal 3.4-5.0 [facility] Comment on above: Performed By: #### C MP ####[facility] Ycrhfsyxgc9450[address] [place], [place] [address]DrNancy Frazier Albumin/Globulin [Mass ratio] 1.1 {ratio} Normal The [facility] Comment on above: Performed By: #### C MP ####[facility] Jelmnjakpa5911[address] [place], [place] [address]DrNancy Frazier ALP [Catalytic activity/Vol] 58 U/L Normal 46-116 The [facility] Comment on above: Performed By: #### C MP ####[facility] Jafeiiduwy0638[address] [place], [place] [address]DrNancy Frazier ALT [Catalytic activity/Vol] 30 U/L Normal 16-63 [facility] Comment on above: Performed By: #### C MP ####[facility] Qfvvnofudv[address] [place] [address]Dr. Tishrowan Freddie Anion gap [Moles/Vol] 14.5 mmol/L Normal [facility] Comment on above: Performed By: #### C MP ####[facility] Lbldxpewet[address] [place], [place] [address]Dr. Chrissy Freddie AST [Catalytic activity/Vol] 17 U/L Normal 15-37 [facility] Comment on above: Performed By: #### C MP ####[facility] Grxtekymma6812[address] [place], [place] [address]Dr. Chrissy Frazier Bilirubin [Mass/Vol] 0.6 mg/dL Normal 0.2-1.0 [facility] Comment on above: Performed By: #### C MP ####[facility] Zdfmcowtuq722[address] [place], [place] [address]Dr. Chrissy Frazier Calcium [Mass/Vol] 8.4 mg/dL Critically low 8.5-10.1 [facility] Comment on above: Performed By: #### C MP ####[facility] Hqssnndggz1136[address] [place], [place] [address]Dr. Chrissy Frazier Chloride [Moles/Vol] 106 mmol/L Normal 98-107 The [facility] Comment on above: Performed By: #### C MP ####[facility] Tasehoqywn1422[address] [place], [place] [address]Dr. Chrissy Frazier CO2 [Moles/Vol] 22.6 mmol/L Normal 21.0-32.0 [facility] Comment on above: Performed By: #### C MP ####[facility] Psrhtctvab140[address] [place], [place] [address]Dr. Chrissy Frazier Creatinine [Mass/Vol] 1.08 mg/dL Normal 0.70-1.30 [facility] Comment on above: Performed By: #### C MP ####[facility] Kiqkayheoe178[address] [place], [place] [address]Dr. Chrissy Frazier EGFR-AF [place] >60 Normal >=60 [facility] Comment on above: Performed By: #### C MP ####[facility] O[address]qxbb360[address] [place] [id number]. Chrissy Frazier EGFR-NON AF [place] >60 Normal >=60 The [facility] Comment on above: Performed By: #### C MP ####[facility] Orsocprrme5[address] [place] [id number]. Chrissy Freddie Globulin (S) [Mass/Vol] 3.3 g/dL Normal [facility] Comment on above: Performed By: #### C MP ####[facility] Rzwcedyihc92[address] [place] [id number]. Chrissy Freddie Glucose [Mass/Vol] 94 mg/dL Normal 74-106 [facility] Comment on above: Performed By: #### C MP ####[facility] Hzrgfeomte23[address] [place] [address]Dr. Chrissy Freddie Potassium [Moles/Vol] 3.1 mmol/L Critically low 3.5-5.1 [facility] Comment on above: Performed By: #### C MP ####[facility] Inwwscsvow97[address] [place] [id number]. Chrissy Freddie Protein [Mass/Vol] 6.9 g/dL Normal 6.4-8.2 [facility] Comment on above: Performed By: #### C MP ####[facility] Zpbugpbuwn32[address] [place] [address]Dr. Chrissy Freddie Sodium [Moles/Vol] 140 mmol/L Normal 136-145 The [facility] Comment on above: Performed By: #### C MP ####[facility] Xjozybwbtp5278 [place] [id number]. Chrissy Freddie Urea nitrogen [Mass/Vol] 10.0 mg/dL Normal 7.0-18.0 The [facility] Comment on above: Performed By: #### C MP ####[facility] Lkwmelrydx0486 [place] [address]Dr. Chrissy Frazier Urea nitrogen/Creatinine [Mass ratio] 9.3 mg/mg Normal [facility] Comment on above: Performed By: #### C MP ####[facility] Upehrahpyn[address] [place] [address]Dr. Chrissy Freddie CBC AUTO DIFFon 07-02-2022 BASO # 0.0 103/ul Normal 0.0-0.1 [facility] Comment on above: Performed By: #### C BC ####[facility] Dywcdgnxbl3824[address] [place], [place] [address]Dr. Chrissy Frazier Basophils/100 WBC (Bld) 0.2 % Normal 0.2-2.0 The [facility] Comment on above: Performed By: #### C BC ####[facility] Glhbfissix445[address] [place], [place] [address]Dr. Chrissy Frazier EO # 0.0 103/ul Normal 0.0-0.7 The [facility] Comment on above: Performed By: #### C BC ####[facility] Xskoepgwjk615[address] [place], [place] [address]Dr. Chrissy Frazier Eosinophils/100 WBC (Bld) 0.0 % Critically low 0.9-7.0 [facility] Comment on above: Performed By: #### C BC ####[facility] Fhpueahchz7740[address] [place], [place] [address]Dr. Tishrowan Frazier Erythrocyte distribution width (RBC) [Ratio] 14.2 % Normal 11.0-15.0 [facility] Comment on above: Performed By: #### C BC ####[facility] Oytueufibo655[address] [place], [place] [address]Dr. Chrissy Frazier Hematocrit (Bld) [Volume fraction] 46.2 % Normal 42.0-54.0 The [facility] Comment on above: Performed By: #### C BC ####[facility] Russclgbjk4529[address] [place], [place] [address]Dr. Chrissy Frazier Hemoglobin (Bld) [Mass/Vol] 15.2 g/dL Normal 14.0-18.0 The [facility] Comment on above: Performed By: #### C BC ####[facility] Ivekfkxdhd[address] [place], [place] [address]Dr. Chrissy Frazier IG # 0.07 10e3/ul Critically high 0.00-0.03 [facility] Comment on above: Performed By: #### C BC ####[facility] Hdrubvgrev05[address] [place] [address]DrNancy Chrissy Frazier IG % 0.4 % Normal 0.0-0.5 [facility] Comment on above: Performed By: #### C BC ####[facility] Nukxzvulgz38[address] [place] [address]DrNancy Chrissy Freddie LYMPH # 2.8 103/ul Normal 1.2-3.8 [facility] Comment on above: Performed By: #### C BC ####[facility] Ugfpzdnput9313[address] [place], [place] [address]DrNancy Tishrowan Frazier Lymphocytes/100 WBC (Bld) 16.7 % Critically low 20.5-60.0 [facility] Comment on above: Performed By: #### C BC ####[facility] Zcmqkfkurt[address] [place], [place] [address]DrNancy Frazier MANUAL DIFF REQ NO Normal [facility] Comment on above: Performed By: #### C BC ####[facility] Dgasnrnywo3942 [place] [address]DrNancy Chrissy Freddie MCH (RBC) [Entitic mass] 28.3 pg Normal 25.9-34.0 [facility] Comment on above: Performed By: #### C BC ####[facility] Imiuygrnnv07[address] [place], [place] [address]DrNancy Chrissy Freddie MCHC (RBC) [Mass/Vol] 32.9 g/dL Normal 29.9-35.2 [facility] Comment on above: Performed By: #### C BC ####[facility] Ybmxvrehzl1934[address] [place], [place] [address]DrNancy Tishrowan Frazier MCV (RBC) [Entitic vol] 86.0 fL Normal 80.0-94.0 [facility] Comment on above: Performed By: #### C BC ####[facility] Ypndqertvu[address] [place], [place] [address]DrNancy Frazier MONO # 0.9 103/ul Critically high 0.3-0.8 [facility] Comment on above: Performed By: #### C BC ####[facility] Tbyhuckswf4842 [place] [id number]. Chrissy Frazier Monocytes/100 WBC (Bld) 5.1 % Normal 1.7-12.0 [facility] Comment on above: Performed By: #### C BC ####[facility] Qeyhfywtco1922 [place] [id number]. Chrissy Frazier NEUT # 13.2 103/ul Critically high 1.4-6.5 [facility] Comment on above: Performed By: #### C BC ####[facility] Gmzhanxmue99[address] [place] [id number]. Chrissy Frazier Neutrophils/100 WBC (Bld) 77.6 % Critically high 43.0-75.0 [facility] Comment on above: Performed By: #### C BC ####[facility] Lukhiwfttu69[address] [place] [address]Dr. Chrissy Frazier Platelet mean volume (Bld) [Entitic vol] 11.6 fL Normal 9.5-13.5 The [facility] Comment on above: Performed By: #### C BC ####[facility] Kdpwaplaeq0626[address] [place], [place] [address]Dr. Chrissy Frazier PLT 317 103/ul Normal 150-450 The [facility] Comment on above: Performed By: #### C BC ####[facility] Iasxlztrwu8571 [place] [id number]. Chrissy Frazier RBC 5.37 106/ul Normal 4.70-6.10 The [facility] Comment on above: Performed By: #### C BC ####[facility] Boyuphdcfn0925 [place] [id number]. Chrissy Frazier WBC 17.1 103/ul Critically high 4.0-11.0 [facility] Comment on above: Performed By: #### C BC ####[facility] Ttexnkjauv[address] [place] [id number]. Chrissy Frazier CT ABD/PELV W CONon 07-02-[address] ABD/PELV W CON Normal [facility] H PYLORI ANTIBODY IGGon 06-21 H. PYLORI IGG ABS 0.13 Index Value Normal 0.00-0.79 [facility] Comment on above: Result Comment: Nega tive <0.80 Equivocal 0.80 - 0.89 Positive >0.89 Performed By: #### H PYLLC ####[facility] Wbgnpmdgnw98[address] [place] [address]Dr. Chrissy Frazier PROF 14(COMP METB)on 022 Albumin [Mass/Vol] 3.8 g/dL Normal 3.4-5.0 [facility] Comment on above: Performed By: #### C MP ####[facility] Woyssqbmwx206[address] [place], [place] [address]Dr. Chrissy Frazier Albumin/Globulin [Mass ratio] 1.0 {ratio} Normal [facility] Comment on above: Performed By: #### C MP ####[facility] Nqyhdvkpao80[address] [place], [place] [address]Dr. Chrissy Frazier ALP [Catalytic activity/Vol] 68 U/L Normal 46-116 [facility] Comment on above: Performed By: #### C MP ####[facility] Vixdvtnsbj[address] [place], [place] [address]Dr. Chrissy Frazier ALT [Catalytic activity/Vol] 34 U/L Normal 16-63 [facility] Comment on above: Performed By: #### C MP ####[facility] Mwylxqkuob9[address] [place], [place] [address]Dr. Chrissy Frazier Anion gap [Moles/Vol] 17.9 mmol/L Normal [facility] Comment on above: Performed By: #### C MP ####[facility] Aynoskbnhm[address] [place], [place] [address]Dr. Chrissy Frazier AST [Catalytic activity/Vol] 24 U/L Normal 15-37 [facility] Comment on above: Performed By: #### C MP ####[facility] Ueebhozhpt[address] [place], [place] [address]Dr. Chrissy Frazier Bilirubin [Mass/Vol] 0.6 mg/dL Normal 0.2-1.0 [facility] Comment on above: Performed By: #### C MP ####[facility] Wylkptlgqm6[address] [place] [address]Dr. Chrissy Frazier Calcium [Mass/Vol] 8.8 mg/dL Normal 8.5-10.1 [facility] Comment on above: Performed By: #### C MP ####[facility] Cyephfalui[address] [place] [address]Dr. Chrissy Frazier Chloride [Moles/Vol] 105 mmol/L Normal 98-107 [facility] Comment on above: Performed By: #### C MP ####[facility] Zwivtevqrb5897 [place] [address]Dr. Chrissy Frazier CO2 [Moles/Vol] 18.8 mmol/L Critically low 21.0-32.0 [facility] Comment on above: Performed By: #### C MP ####[facility] Nudldijcwo[address] [place], [place] [address]Dr. Chrissy Frazier Creatinine [Mass/Vol] 1.15 mg/dL Normal 0.70-1.30 [facility] Comment on above: Performed By: #### C MP ####[facility] Dzhlwpgkvx[address] [place], [place] [address]Dr. Chrissy rFazier EGFR-AF [place] >60 Normal >=60 [facility] Comment on above: Performed By: #### C MP ####[facility] Rxgocivutf3447 [place] [address]Dr. Chrissy Frazier EGFR-NON AF [place] >60 Normal >=60 [facility] Comment on above: Performed By: #### C MP ####[facility] Enrujknlyz8077 [place] [address]Dr. Chrissy Frazier Globulin (S) [Mass/Vol] 3.9 g/dL Normal [facility] Comment on above: Performed By: #### C MP ####[facility] Bdclyxgpnw6240 [place] [address]Dr. Chrissy Frazier Glucose [Mass/Vol] 124 mg/dL Critically high 74-106 [facility] Comment on above: Performed By: #### C MP ####[facility] Hqqmrofjbm4819 [place] [address]Dr. Chrissy Frazier Potassium [Moles/Vol] 3.7 mmol/L Normal 3.5-5.1 [facility] Comment on above: Performed By: #### C MP ####[facility] Iqiwlmjmlx4604 [place] [address]Dr. Chrissy Frazier Protein [Mass/Vol] 7.7 g/dL Normal 6.4-8.2 [facility] Comment on above: Performed By: #### C MP ####[facility] Cyzptrkodk[address] [place], [place] [address]Dr. Chrissy Frazier Sodium [Moles/Vol] 138 mmol/L Normal 136-145 [facility] Comment on above: Performed By: #### C MP ####[facility] Pxqnhdvptq[address] [place], [place] [address]Dr. Chrissy Frazier Urea nitrogen [Mass/Vol] 9.0 mg/dL Normal 7.0-18.0 [facility] Comment on above: Performed By: #### C MP ####[facility] Xrvqtmoycj[address] [place], [place] [address]Dr. Chrissy Frazier Urea nitrogen/Creatinine [Mass ratio] 7.8 mg/mg Normal [facility] Comment on above: Performed By: #### C MP ####[facility] Yjyfvqqbei[address] [place], [place] [address]Dr. Chrissy Frazier AMMONIAon 07-01-2022 Ammonia (P) [Moles/Vol] 14 umol/L Normal 11-32 [facility] Comment on above: Performed By: #### A MM ####[facility] Uitepjdabh[address] [place], [place] [address]Dr. Chrissy Frazier AMYLASEon 07-01-2022 Amylase [Catalytic activity/Vol] 32 U/L Normal 25-115 [facility] Comment on above: Performed By: #### A MY, PHOS, CMP, LIPA ####[facility] [address] [place] [address]Dr. Chrissy Frazier CBC AUTO DIFFon 07-01-2022 BASO # 0.1 103/ul Normal 0.0-0.1 [facility] Comment on above: Performed By: #### C BC ####[facility] M[address]htuaim[address] [place] [address]Dr. Tishrowan Freddie Basophils/100 WBC (Bld) 0.4 % Normal 0.2-2.0 [facility] Comment on above: Performed By: #### C BC ####[facility] Wnfhumjzor[address] [place], [place] [address]Dr. Chrissy Frazier EO # 0.2 103/ul Normal 0.0-0.7 [facility] Comment on above: Performed By: #### C BC ####[facility] Gfjzcdzvlx[address] [place], [place] [address]Dr. Chrissy Frazier Eosinophils/100 WBC (Bld) 0.9 % Normal 0.9-7.0 The [facility] Comment on above: Performed By: #### C BC ####[facility] Idnylqjrle[address] [place], [place] [address]Dr. Chrissy Frazier Erythrocyte distribution width (RBC) [Ratio] 13.8 % Normal 11.0-15.0 [facility] Comment on above: Performed By: #### C BC ####[facility] Rjnryfsycl[address] [place], [place] [address]Dr. Chrissy Frazier Hematocrit (Bld) [Volume fraction] 46.3 % Normal 42.0-54.0 [facility] Comment on above: Performed By: #### C BC ####[facility] Zticyuxhrf39[address] [place], [place] [address]Dr. Chrissy Frazier Hemoglobin (Bld) [Mass/Vol] 15.4 g/dL Normal 14.0-18.0 [facility] Comment on above: Performed By: #### C BC ####[facility] Wcduduifrg87[address] [place], [place] [address]DrNancy Frazier IG # 0.05 10e3/ul Critically high 0.00-0.03 [facility] Comment on above: Performed By: #### C BC ####[facility] Lbjrkuxijm8[address] [place], [place] [address]Dr. Chrissy Frazier IG % 0.3 % Normal 0.0-0.5 [facility] Comment on above: Performed By: #### C BC ####[facility] Inuvdkyuhc[address] [place] [address]DrNancy Frazier LYMPH # 2.0 103/ul Normal 1.2-3.8 [facility] Comment on above: Performed By: #### C BC ####[facility] W[address]ffugfq[address] [place] [address]DrNancy Frazier Lymphocytes/100 WBC (Bld) 12.9 % Critically low 20.5-60.0 The [facility] Comment on above: Performed By: #### C BC ####[facility] Yutiacynbk88[address] [place], [place] [address]DrNancy Frazier MANUAL DIFF REQ NO Normal [facility] Comment on above: Performed By: #### C BC ####[facility] Lcmhyylswv[address] [place] [address]DrNancy Frazier MCH (RBC) [Entitic mass] 28.6 pg Normal 25.9-34.0 [facility] Comment on above: Performed By: #### C BC ####[facility] Aoxtqvavxd65[address] [place], [place] [address]DrNancy Frazier MCHC (RBC) [Mass/Vol] 33.3 g/dL Normal 29.9-35.2 [facility] Comment on above: Performed By: #### C BC ####[facility] Eorlqdnufy7[address] [place], [place] [address]DrNancy Frazier MCV (RBC) [Entitic vol] 86.1 fL Normal 80.0-94.0 [facility] Comment on above: Performed By: #### C BC ####[facility] Ujlvzqauaz[address] [place], [place] [address]DrNancy Frazier MONO # 0.5 103/ul Normal 0.3-0.8 [facility] Comment on above: Performed By: #### C BC ####[facility] Tetjkfbszs99[address] [place], [place] [address]DrNancy Frazier Monocytes/100 WBC (Bld) 3.0 % Normal 1.7-12.0 The [facility] Comment on above: Performed By: #### C BC ####[facility] [address]kpudaz[address] [place] [address]Dr. Chrissy Frazier NEUT # 13.0 103/ul Critically high 1.4-6.5 [facility] Comment on above: Performed By: #### C BC ####[facility] Avuyoecoml[address] [place] [address]Dr. Chrissy Frazier Neutrophils/100 WBC (Bld) 82.5 % Critically high 43.0-75.0 The [facility] Comment on above: Performed By: #### C BC ####[facility] Zufslyodft[address] [place], [place] [address]Dr. Chrissy Frazier Platelet mean volume (Bld) [Entitic vol] 10.0 fL Normal 9.5-13.5 [facility] Comment on above: Performed By: #### C BC ####[facility] Jhddicfpml[address] [place], [place] [address]Dr. Chrissy Frazier PLT 370 103/ul Normal 150-450 [facility] Comment on above: Performed By: #### C BC ####[facility] Ggmqtstdbn[address] [place], [place] [address]Dr. Chrissy Frazier RBC 5.38 106/ul Normal 4.70-6.10 The [facility] Comment on above: Performed By: #### C BC ####[facility] Eykavkblft237[address] [place], [place] [address]Dr. Chrissy Frazier WBC 15.8 103/ul Critically high 4.0-11.0 [facility] Comment on above: Performed By: #### C BC ####[facility] Hmzruyanhc39[address] [place], [place] [address]Dr. Chrissy Frazier CULTURE URINEon 07-01-2022 CULTURE URINE Culture Observations: No growth Normal The [facility] Comment on above: Performed By: #### U RCX ####[facility] Uiicjlxjbs[address] [place], [place] [address]Dr. Chrissy Frazier Covid-19 PCR (CVDTBH)on 06-21 SARS-CoV-2 (COVID-19) RNA RHIANNON+probe Ql (Unsp spec) Not detected Normal NOT DETECTED The [facility] Comment on above: Result Comment: [...] for this test is supported by the [employer] and Human [employer]'s declaration [...] be used). Performed By: #### C VDTBH ####[facility] Qkgpiiqrno[address] [place] [address]Dr. Chrissy Frazier DRUG SCREEN RAPID (URINE)on 07-01-2022 AMP Negative Normal NEGATIVE The [facility] Comment on above: Performed By: #### D REYES UAMIC ####[facility] [address] [place] [id number]. Chrissy Frazier BAR Negative Normal NEGATIVE The [facility] Comment on above: Performed By: #### D REYES UAMIC ####[facility] [address] [place] [id number]. Chrissy Frazier BUP Negative Normal NEGATIVE The [facility] Comment on above: Performed By: #### D REYES UAMIC ####[facility] Jbosmdomsr[address] [place] [id number]. Chrissy Frazier BZO Negative Normal NEGATIVE The [facility] Comment on above: Performed By: #### D REYES UAMIC ####[facility] Cvaccjkpam[address] [place] [id number]. Chrissy Frazier LAUREN Negative Normal NEGATIVE The [facility] Comment on above: Performed By: #### Amelie CHAMBERS UAMIC ####[facility] Ebbkxtyzgd[address] [place], [place] [address]Dr. Chrissy Frazier CUT-OFFS SEE BELOW Normal [facility] Comment on above: Result Comment: AMP [...] ng/mL Performed By: #### Amelie CHAMBERS UAMIC ####[facility] Jcsaolrgaw[address] [place], [place] [address]Dr. Chrissy Frazier DRUG CUT HEADER DRUG CLASS TEST SYSTEM CUT-OFF CONCENTRATIONS ARE FOLLOWS: Normal The [facility] Comment on above: Performed By: #### Amelie CHAMBERS UAMIC ####[facility] Lspbvudodc[address] [place], [place] [address]Dr. Chrissy Frazier mAMP Negative Normal NEGATIVE The [facility] Comment on above: Performed By: #### Amelie CHAMBERS UAMIC ####[facility] Drgrqokeia2332[address] [place], [place] [address]Dr. Chrissy Frazier MTD Negative Normal NEGATIVE The [facility] Comment on above: Performed By: #### Amelie CHAMBERS UAMIC ####[facility] Xliybfbzas28[address] [place], [place] [address]Dr. Chrissy Frazier OPI Negative Normal NEGATIVE The [facility] Comment on above: Performed By: #### Amelie CHAMBERS UAMIC ####[facility] Tarydgsyoc5[address] [place], [place] [address]Dr. Chrissy Frazier OXY Negative Normal NEGATIVE The [facility] Comment on above: Performed By: #### D REYES UAMIC ####[facility] [address]rhsmmiyg[address] [place] [address]Dr. Chrissy Frazier PCP Negative Normal NEGATIVE The [facility] Comment on above: Performed By: #### D REYES, UAMIC ####[facility] G[address]ufapdiw[address] [place] [address]Dr. Chrissy Frazier PPX Negative Normal NEGATIVE The [facility] Comment on above: Performed By: #### D REYES, UAMIC ####[facility] Wstewawbbh[address] [place] [address]Dr. Chrissy Frazier TCA Negative Normal NEGATIVE The [facility] Comment on above: Performed By: #### D REYES UAMIC ####[facility] Tjweqcumho[address] [place] [address]Dr. Chrissy Frazier THC Positive Abnormal NEGATIVE The [facility] Comment on above: Performed By: #### D REYES UAMIC ####[facility] Pvqlcwaglh[address] [place] [address]Dr. Chrissy Frazier LACTATE/LACTIC ACIDon 2021 Lactate [Moles/Vol] 4.4 mmol/L Critically high 0.4-1.9 [facility] Comment on above: Performed By: #### L ACT ####[facility] Udbqffdbfc[address] [place], [place] [address]Dr. Chrissy Frazier LIPASEon 07-01-2022 Lipase [Catalytic activity/Vol] 57.0 U/L Critically low 73.0-393.0 The [facility] Comment on above: Performed By: #### A MY, PHOS, CMP, LIPA ####[facility] E[address]zouwta[address] [place] [address]Dr. Chrissy Frazier PHOSPHORUSon 07-01-2022 Phosphate [Mass/Vol] 1.4 mg/dL Critically low 2.6-4.7 The [facility] Comment on above: Performed By: #### A MY, PHOS, CMP, LIPA ####[facility] Gcsoweazkg[address] [place], [place] [address]Dr. Chrissy Frazier PROF 14(COMP METB)on 022 Albumin [Mass/Vol] 4.2 g/dL Normal 3.4-5.0 The [facility] Comment on above: Performed By: #### A MY, PHOS, CMP, LIPA ####[facility] Zcazayutni[address] [place] [address]Dr. Chrissy Frazier Albumin/Globulin [Mass ratio] 1.1 {ratio} Normal [facility] Comment on above: Performed By: #### A MY, PHOS, CMP, LIPA ####[facility] Tcofencutt[address] [place] [address]Dr. Chrissy Frazier ALP [Catalytic activity/Vol] 73 U/L Normal 46-116 [facility] Comment on above: Performed By: #### A MY, PHOS, CMP, LIPA ####[facility] Gsvynmuenb[address] [place], [place] [address]Dr. Chrissy Frazier ALT [Catalytic activity/Vol] 43 U/L Normal 16-63 [facility] Comment on above: Performed By: #### A MY, PHOS, CMP, LIPA ####[facility] Hqqauyjlyo[address] [place], [place] [address]Dr. Chrissy Frazier Anion gap [Moles/Vol] 19.0 mmol/L Normal [facility] Comment on above: Performed By: #### A MY, PHOS, CMP, LIPA ####[facility] Iccxgtworm[address] [place] [address]Dr. Chrissy Frazier AST [Catalytic activity/Vol] 21 U/L Normal 15-37 [facility] Comment on above: Performed By: #### A MY, PHOS, CMP, LIPA ####[facility] Udjeiclkkf[address] [place] [address]Dr. Chrissy Frazier Bilirubin [Mass/Vol] 0.5 mg/dL Normal 0.2-1.0 [facility] Comment on above: Performed By: #### A MY, PHOS, CMP, LIPA ####[facility] Dpmlapgise8[address] [place], [place] [address]Dr. Chrissy Frazier Calcium [Mass/Vol] 9.3 mg/dL Normal 8.5-10.1 [facility] Comment on above: Performed By: #### A MY, PHOS, CMP, LIPA ####[facility] Kutnoyswwt[address] [place] [address]Dr. Chrissy Frazier Chloride [Moles/Vol] 103 mmol/L Normal 98-107 [facility] Comment on above: Performed By: #### A MY, PHOS, CMP, LIPA ####[facility] Zfufomlerh[address] [place] [address]Dr. Chrissy Frazier CO2 [Moles/Vol] 21.1 mmol/L Normal 21.0-32.0 [facility] Comment on above: Performed By: #### A MY, PHOS, CMP, LIPA ####[facility] Nlbqrsbzgn[address] [place], [place] [address]Dr. Chrissy Frazier Creatinine [Mass/Vol] 1.44 mg/dL Critically high 0.70-1.30 [facility] Comment on above: Performed By: #### A MY, PHOS, CMP, LIPA ####[facility] Rbygvfglsh[address] [place], [place] [address]Dr. Chrissy Frazier EGFR-AF GREENLANDIC >60 Normal >=60 [facility] Comment on above: Performed By: #### A MY, PHOS, CMP, LIPA ####[facility] Rpkkoqaszh[address] [place] [address]Dr. Chrissy Frazier EGFR-NON AF GREENLANDIC 57 mL/min/1.73m2 Critically low >=60 [facility] Comment on above: Performed By: #### A MY, PHOS, CMP, LIPA ####[facility] Wbu[address]iklbz6[address] [place] [address]Dr. Chrissy Frazier Globulin (S) [Mass/Vol] 3.9 g/dL Normal [facility] Comment on above: Performed By: #### A MY, PHOS, CMP, LIPA ####[facility] Sxtb[address]odfe[address] [place] [address]Dr. Chrissy Frazier Glucose [Mass/Vol] 148 mg/dL Critically high 74-106 [facility] Comment on above: Performed By: #### A MY, PHOS, CMP, LIPA ####[facility] Anbchbdloh[address] [place] [address]Dr. Chrissy Frazier Potassium [Moles/Vol] 3.1 mmol/L Critically low 3.5-5.1 The [facility] Comment on above: Performed By: #### A MY, PHOS, CMP, LIPA ####[facility] Hzdzomvoij20[address] [place] [address]Dr. Chrissy Frazier Protein [Mass/Vol] 8.1 g/dL Normal 6.4-8.2 The [facility] Comment on above: Performed By: #### A MY, PHOS, CMP, LIPA ####[facility] Cerrpqxhyq[address] [place] [address]Dr. Chrissy Frazier Sodium [Moles/Vol] 140 mmol/L Normal 136-145 The [facility] Comment on above: Performed By: #### A MY, PHOS, CMP, LIPA ####[facility] Svniqvmsfi[address] [place] [address]Dr. Chrissy Frazier Urea nitrogen [Mass/Vol] 10.0 mg/dL Normal 7.0-18.0 The [facility] Comment on above: Performed By: #### A MY, PHOS, CMP, LIPA ####[facility] Xlqzyjdgge[address] [place] [address]Dr. Chrissy Frazier Urea nitrogen/Creatinine [Mass ratio] 6.9 mg/mg Normal The [facility] Comment on above: Performed By: #### A MY, PHOS, CMP, LIPA ####[facility] Prarfuelrw[address] [place] [address]Dr. Chrissy Frazier UA RANDOM W/MICROSCOPICon BACTERIA TRACE Abnormal NONE SEEN The [facility] Comment on above: Performed By: #### D SORAYA CHAMBERSMIC ####[facility] Ovfpibrcrc[address] [place] [address]Dr. Tishrowan Frazier Bilirubin Ql (U) Negative Normal NEGATIVE The [facility] Comment on above: Performed By: #### D REYES UAMIC ####[facility] Iaihjvhcta[address] [place], [place] [address]Dr. Tishrowan Freddie CAST NONE SEEN Normal NONE SEEN The [facility] Comment on above: Performed By: #### Amelie CHAMBERS UAMIC ####[facility] Dukcslcxnb[address] [place], [place] [address]Dr. Chrissy Frazier Clarity (U) CLEAR Normal CLEAR The [facility] Comment on above: Performed By: #### Amelie CHAMBERS UAMIC ####[facility] Hsleuwddgk[address] [place], [place] [address]Dr. Chrissy Frazier Color (U) YELLOW Normal YELLOW The [facility] Comment on above: Performed By: #### Amelie CHAMBERS UAMIC ####[facility] Dhhkwyxfdt63[address] [place], [place] [address]Dr. Chrissy Frazier Crystals LM Nom (Urine sed) NONE SEEN Normal NONE SEEN The [facility] Comment on above: Performed By: #### Amelie CHAMBERS UAMIC ####[facility] Jkkvctnjpx[address] [place], [place] [address]Dr. Chrissy Frazier Epithelial cells LM Ql (Urine sed) RARE Normal NONE SEEN /RARE The [facility] Comment on above: Performed By: #### Amelie CHAMBERS UAMIC ####[facility] Hrnvzpuave[address] [place], [place] [address]Dr. Chrissy Frazier Glucose Ql (U) Negative Normal NEGATIVE The [facility] Comment on above: Performed By: #### Amelie CHAMBERS UAMIC ####[facility] Xcqrxpezut0735[address] [place], [place] [address]Dr. Chrissy Frazier Hemoglobin Ql (U) Negative Normal NEGATIVE The [facility] Comment on above: Performed By: #### Amelie CHAMBERS UAMIC ####[facility] Qthjpoiimb[address] [place], [place] [address]Dr. Chrissy Frazier Ketones Ql (U) 40 mg/dl Abnormal NEGATIVE The [facility] Comment on above: Performed By: #### Amelie CHAMBERS UAMIC ####[facility] Gbkhhbgckh19[address] [place], [place] [address]Dr. Chrissy Frazier LEUKOCYTES Negative Normal NEGATIVE The [facility] Comment on above: Performed By: #### Amelie CHAMBERS UAMIC ####[facility] K[address]igssfc[address] [place] [address]Dr. Chrissy Frazier MUCOUS MODERATE Abnormal NONE SEEN The [facility] Comment on above: Performed By: #### Amelie CHAMBERS UAMIC ####[facility] Nyandyfzmn40[address] [place] [address]Dr. Chrissy Frazier Nitrite Ql (U) Negative Normal NEGATIVE The [facility] Comment on above: Performed By: #### D REYES UAMIC ####[facility] Iaynknupwq[address] [place], [place] [address]Dr. Chrissy Frazier pH (U) 6.0 [pH] Normal 5-9 The [facility] Comment on above: Performed By: #### Amelie CHAMBERS UAMIC ####[facility] Sschssppyx4[address] [place] [address]Dr. Chrissy Frazier RBC 0-2 Normal 0-2 The [facility] Comment on above: Performed By: #### Amelie CHAMBERS UAMIC ####[facility] Tunqxuccxl[address] [place], [place] [address]Dr. Chrissy Frazier SPEC GRAVITY 1.020 Normal 1.005-<=1.025 The [facility] Comment on above: Performed By: #### Amelie CHAMBERS UAMIC ####[facility] Rmeltycbls[address] [place], [place] [address]Dr. Chrissy Frazier UA PROTEIN Negative Normal NEGATIVE/ TRACE The [facility] Comment on above: Performed By: #### Amelie CHAMBERS UAMIC ####[facility] Muksmkzjdj[address] [place], [place] [address]Dr. Chrissy Frazier Urobilinogen Qn (U) 0.2 {Estrellita'U}/dL Normal 0.2 - 1. 0 The [facility] Comment on above: Performed By: #### Amelie CHAMBERS UAMIC ####[facility] Krkwescnjo18[address] [place], [place] [address]Dr. Chrissy Frazier WBC 0-2 Abnormal NONE SEEN The [facility] Comment on above: Performed By: #### Amelie CHAMBERS UAMIC ####[facility] Q[address]ausyuh14[address] [place], [place] [address]Rh. Chrissy Frazier XR ABD FLAT UP_PA Enoch 07-01 XR ABD FLAT UP_PA CH Normal The [facility] Covid-19 PCR (CVDTB)on SARS-CoV-2 (COVID-19) RNA RHIANNON+probe Ql (Unsp spec) Not detected Normal NOT DETECTED The [facility] Comment on above: Result Comment: [...] for this test is supported by the [employer] Human [employer]'s declaration [...] longer be used). Performed By: #### C [facility] ####[facility] Cdwrjeffkh3425 [place], [place] [address]We. Chrissy Frazier SYMPTOMATIC COVID-19 ANTIGEN on 04-23-2022 EUA Statement SEE BELOW Normal The [facility] Comment on above: Result Comment: This [...] revoked sooner. Performed By: #### C VDAGS ####[facility] Tvvqkvhfmi[address] [place], [place] [address]Dr. Chrissy Frazier SARS-CoV-2 (COVID-19) RNA RHIANNON+probe Ql (Unsp spec) Negative Normal NEGATIVE The [facility] Comment on above: Performed By: #### C VDAGS ####[facility] Snwzhxyxli[address] [place], [place] [address]Dr. Chrissy Frazier AMYLASEon 04-04-2022 Amylase [Catalytic activity/Vol] 40 U/L Normal 25-115 The [facility] Comment on above: Performed By: #### C MPTERRENCE, LIPA ####[facility] Qnjrzoxfvz[address] [place], [place] [address]Dr. Chrissy Frazier CBC AUTO DIFFon 04-04-2022 BASO # 0.1 103/ul Normal 0.0-0.1 [facility] Comment on above: Performed By: #### C BC ####[facility] Zkeoyrmunf[address] [place], [place] [address]Dr. Chrissy Frazier Basophils/100 WBC (Bld) 0.4 % Normal 0.2-2.0 The [facility] Comment on above: Performed By: #### C BC ####[facility] Emhygbpcbg[address] [place], [place] [address]Dr. Chrissy Frazier EO # 0.1 103/ul Normal 0.0-0.7 [facility] Comment on above: Performed By: #### C BC ####[facility] Fbamibhjoa[address] [place], [place] [address]Dr. Chrissy Frazier Eosinophils/100 WBC (Bld) 0.6 % Critically low 0.9-7.0 The [facility] Comment on above: Performed By: #### C BC ####[facility] Efsxcqudrx237[address] [place], [place] [address]Dr. Chrissy Frazier Erythrocyte distribution width (RBC) [Ratio] 13.2 % Normal 11.0-15.0 [facility] Comment on above: Performed By: #### C BC ####[facility] Icerforpwj[address] [place] [address]Dr. Chrissy Frazier Hematocrit (Bld) [Volume fraction] 48.3 % Normal 42.0-54.0 [facility] Comment on above: Performed By: #### C BC ####[facility] Gxwavjhfio[address] [place] [address]Dr. Chrissy Frazier Hemoglobin (Bld) [Mass/Vol] 16.1 g/dL Normal 14.0-18.0 [facility] Comment on above: Performed By: #### C BC ####[facility] Trhlliooiz[address] [place], [place] [address]Dr. Chrissy Frazier IG # 0.12 10e3/ul Critically high 0.00-0.03 [facility] Comment on above: Performed By: #### C BC ####[facility] Bmbomiryya[address] [place], [place] [address]Dr. Tishrowan Frazier IG % 0.9 % Critically high 0.0-0.5 [facility] Comment on above: Performed By: #### C BC ####[facility] Dmbtviswzi204[address] [place], [place] [address]Dr. Chrissy Freddie LYMPH # 3.0 103/ul Normal 1.2-3.8 [facility] Comment on above: Performed By: #### C BC ####[facility] Spyeouaddd685[address] [place], [place] [address]DrNancy Tishrowan Frazier Lymphocytes/100 WBC (Bld) 22.3 % Normal 20.5-60.0 [facility] Comment on above: Performed By: #### C BC ####[facility] Cvsocxofie014[address] [place], [place] [address]Dr. Tishrowan Frazier MANUAL DIFF REQ NO Normal [facility] Comment on above: Performed By: #### C BC ####[facility] Jaiaymcpps7[address] [place], [place] [address]DrNancy Chrissy Freddie MCH (RBC) [Entitic mass] 28.6 pg Normal 25.9-34.0 [facility] Comment on above: Performed By: #### C BC ####[facility] Yxhxgiojbm9[address] [place] [id number]. Tishrowan Frazier MCHC (RBC) [Mass/Vol] 33.3 g/dL Normal 29.9-35.2 [facility] Comment on above: Performed By: #### C BC ####[facility] Airutkrvjl32[address] [place] [id number]. Chrissy Frazier MCV (RBC) [Entitic vol] 85.9 fL Normal 80.0-94.0 [facility] Comment on above: Performed By: #### C BC ####[facility] Vhpdncfqsl[address] [place], [place] [address]Dr. Chrissy Frazier MONO # 0.8 103/ul Normal 0.3-0.8 The [facility] Comment on above: Performed By: #### C BC ####[facility] Sfbmjoapdu675[address] [place], [place] [address]Dr. Chrissy Frazier Monocytes/100 WBC (Bld) 5.7 % Normal 1.7-12.0 The [facility] Comment on above: Performed By: #### C BC ####[facility] Ewracesjpa[address] [place], [place] [address]Dr. Chrissy Frazier NEUT # 9.3 103/ul Critically high 1.4-6.5 [facility] Comment on above: Performed By: #### C BC ####[facility] Gwnbhxfqbh219[address] [place], [place] [address]Dr. Chrissy Frazier Neutrophils/100 WBC (Bld) 70.1 % Normal 43.0-75.0 The [facility] Comment on above: Performed By: #### C BC ####[facility] Fuwdfwysig[address] [place], [place] [address]Dr. Chrissy Frazier Platelet mean volume (Bld) [Entitic vol] 10.3 fL Normal 9.5-13.5 The [facility] Comment on above: Performed By: #### C BC ####[facility] Ctzhtqsmgz[address] [place], [place] [address]Dr. Chrissy Frazier PLT 461 103/ul Critically high 150-450 [facility] Comment on above: Performed By: #### C BC ####[facility] Zhnrqwzmtn6[address] [place] [address]Dr. Tishrowan Freddie RBC 5.62 106/ul Normal 4.70-6.10 [facility] Comment on above: Performed By: #### C BC ####[facility] Mimcbqppxl0638 [place] [address]Dr. Chrissy Frazier WBC 13.3 103/ul Critically high 4.0-11.0 [facility] Comment on above: Performed By: #### C BC ####[facility] Xrwspgdyft1602 [place] [address]Dr. Chrissy Frazier LIPASEon 04-04-2022 Lipase [Catalytic activity/Vol] 118.0 U/L Normal 73.0-393.0 [facility] Comment on above: Performed By: #### C MP, TERRENCE, LIPA ####[facility] Bhhkblokaw[address] [place] [address]Dr. Chrissy Frazier PROF 14(COMP METB)on 022 Albumin [Mass/Vol] 4.3 g/dL Normal 3.4-5.0 [facility] Comment on above: Performed By: #### C MP, TERRENCE, LIPA ####[facility] Vlbreuyelw068[address] [place], [place] [address]Dr. Chrissy Frazier Albumin/Globulin [Mass ratio] 1.0 {ratio} Normal [facility] Comment on above: Performed By: #### C MP, TERRENCE, LIPA ####[facility] Ibmxvdccmb6[address] [place] [address]Dr. Chrissy Frazier ALP [Catalytic activity/Vol] 84 U/L Normal 46-116 The [facility] Comment on above: Performed By: #### C MP, TERRENCE, LIPA ####[facility] Jsgkbvoiwz99[address] [place] [address]Dr. Chrissy Frazier ALT [Catalytic activity/Vol] 81 U/L Critically high 16-63 The [facility] Comment on above: Performed By: #### C MP, TERRENCE, LIPA ####[facility] Updtzwzkfd[address] [place], [place] [address]Dr. Chrissy Frazier Anion gap [Moles/Vol] 17.9 mmol/L Normal [facility] Comment on above: Performed By: #### C TERRENCE ADAIR, LIPA ####[facility] Efsvdttvxb26[address] [place] [address]Dr. Chrissy Frazier AST [Catalytic activity/Vol] 25 U/L Normal 15-37 The [facility] Comment on above: Performed By: #### C MANA TERRENCE, LIPA ####[facility] Rwybihqred56[address] [place], [place] [address]Dr. Chrissy Frazier Bilirubin [Mass/Vol] 0.5 mg/dL Normal 0.2-1.0 The [facility] Comment on above: Performed By: #### C TERRENCE ADAIR, LIPA ####[facility] Kpflcyqajh[address] [place], [place] [address]Dr. Chrissy Frazier Calcium [Mass/Vol] 9.6 mg/dL Normal 8.5-10.1 [facility] Comment on above: Performed By: #### C MANA TERRENCE, LIPA ####[facility] Dmesjbyuqx9927[address] [place], [place] [address]Dr. Chrissy Frazier Chloride [Moles/Vol] 101 mmol/L Normal 98-107 The [facility] Comment on above: Performed By: #### C MANA TERRENCE, LIPA ####[facility] Ovyegqeuti5826[address] [place], [place] [address]Dr. Chrissy Frazier CO2 [Moles/Vol] 18.6 mmol/L Critically low 21.0-32.0 The [facility] Comment on above: Performed By: #### C MANA TERRENCE, LIPA ####[facility] Cfxmhqqjzt145[address] [place], [place] [address]Dr. Chrissy Frazier Creatinine [Mass/Vol] 1.39 mg/dL Critically high 0.70-1.30 [facility] Comment on above: Performed By: #### C MP, TERRENCE, LIPA ####[facility] Vcmykzsxmu33[address] [place], [place] [address]Dr. Chrissy Frazier EGFR-AF GREEN[place]IC >60 Normal >=60 [facility] Comment on above: Performed By: #### C MP, TERRENCE, LIPA ####[facility] Pxzddyiqqb24[address] [place] [address]Dr. Chrissy Frazier EGFR-NON AF [place] 59 mL/min/1.73m2 Critically low >=60 [facility] Comment on above: Performed By: #### C MP, TERRENCE, LIPA ####[facility] Hxczekfxud23[address] [place] [address]Dr. Chrissy Frazier Globulin (S) [Mass/Vol] 4.3 g/dL Normal [facility] Comment on above: Performed By: #### C MP, TERRENCE, LIPA ####[facility] Nngbyquzvq9377 [place] [address]Dr. Chrissy Frazier Glucose [Mass/Vol] 132 mg/dL Critically high 74-106 [facility] Comment on above: Performed By: #### C MP, TERRENCE, LIPA ####[facility] Aqzuwtxfto4420[address] [place], [place] [address]Dr. Chrissy Frazier Potassium [Moles/Vol] 3.5 mmol/L Normal 3.5-5.1 [facility] Comment on above: Performed By: #### C MP, TERRENCE, LIPA ####[facility] Dtbswydzpd537[address] [place], [place] [address]Dr. Chrissy Frazier Protein [Mass/Vol] 8.6 g/dL Critically high 6.4-8.2 [facility] Comment on above: Performed By: #### C MP, TERRENCE, LIPA ####[facility] Jlbqhxarco8[address] [place] [address]Dr. Chrissy Frazier Sodium [Moles/Vol] 134 mmol/L Critically low 136-[address] [facility] Comment on above: Performed By: #### C MP, TERRENCE, LIPA ####[facility] Ngjuyhyupo86[address] [place] [address]Dr. Chrissy Frazier Urea nitrogen [Mass/Vol] 8.0 mg/dL Normal 7.0-18.0 [facility] Comment on above: Performed By: #### C MP, TERRENCE, LIPA ####[facility] Byviaqdpmy1512[address] [place], [place] [address]Dr. Chrissy Frazier Urea nitrogen/Creatinine [Mass ratio] 5.8 mg/mg Normal The [facility] Comment on above: Performed By: #### C TERRENCE ADAIR LIPA ####[facility] Ehcpbhzbjn[address] [place] [address]Dr. Chrissy Frazier XR ABD FLAT UP_PA Enoch 04-04 XR ABD FLAT UP_PA CH Normal The [facility] AMMONIAon 03-31-2022 Ammonia (P) [Moles/Vol] 19 umol/L Normal 11-32 The [facility] Comment on above: Performed By: #### A MM ####[facility] Lycakbwnbq199[address] [place], [place] [address]Dr. Chrissy Frazier CBC AUTO DIFFon 03-31-2022 BASO # 0.1 103/ul Normal 0.0-0.1 The [facility] Comment on above: Performed By: #### C BC ####[facility] Xhktltgwwd7[address] [place], [place] [address]Dr. Chrissy Frazier Basophils/100 WBC (Bld) 0.5 % Normal 0.2-2.0 The [facility] Comment on above: Performed By: #### C BC ####[facility] Napadnftem[address] [place], [place] [address]DrNancy Frazier EO # 0.2 103/ul Normal 0.0-0.7 The [facility] Comment on above: Performed By: #### C BC ####[facility] Jhcbyhtexf376[address] [place], [place] [address]Dr. Chrissy Frazier Eosinophils/100 WBC (Bld) 1.6 % Normal 0.9-7.0 The [facility] Comment on above: Performed By: #### C BC ####[facility] Owfxuiuzse2230[address] [place], [place] [address]Dr. Chrissy Frazier Erythrocyte distribution width (RBC) [Ratio] 13.2 % Normal 11.0-15.0 The [facility] Comment on above: Performed By: #### C BC ####[facility] Dnrrhmbhsl1867[address] [place], [place] [address]Dr. Chrissy Frazier Hematocrit (Bld) [Volume fraction] 42.1 % Normal 42.0-54.0 The [facility] Comment on above: Performed By: #### C BC ####[facility] Auecvcektl[address] [place] [address]Dr. Chrissy Frazier Hemoglobin (Bld) [Mass/Vol] 14.3 g/dL Normal 14.0-18.0 [facility] Comment on above: Performed By: #### C BC ####[facility] Gfnuznxowu4832[address] [place], [place] [address]Dr. Chrissy Frazier IG # 0.05 10e3/ul Critically high 0.00-0.03 [facility] Comment on above: Performed By: #### C BC ####[facility] Gfzbntmasc[address] [place], [place] [address]Dr. Chrissy Frazier IG % 0.5 % Normal 0.0-0.5 [facility] Comment on above: Performed By: #### C BC ####[facility] Ulxskodbcu[address] [place], [place] [address]Dr. Chrissy Frazier LYMPH # 2.9 103/ul Normal 1.2-3.8 The [facility] Comment on above: Performed By: #### C BC ####[facility] Nudijptdyf4350[address] [place], [place] [address]Dr. Chrissy Frazier Lymphocytes/100 WBC (Bld) 25.7 % Normal 20.5-60.0 [facility] Comment on above: Performed By: #### C BC ####[facility] Emhxnhfged7614[address] [place], [place] [address]Dr. Chrissy Frazier MANUAL DIFF REQ NO Normal [facility] Comment on above: Performed By: #### C BC ####[facility] Ffsmjzkflp1150[address] [place], [place] [address]Dr. Chrissy Frazier MCH (RBC) [Entitic mass] 29.2 pg Normal 25.9-34.0 The [facility] Comment on above: Performed By: #### C BC ####[facility] Xnsfntswdl900[address] [place], [place] [address]Dr. Chrissy Frazier MCHC (RBC) [Mass/Vol] 34.0 g/dL Normal 29.9-35.2 The [facility] Comment on above: Performed By: #### C BC ####[facility] Hecibmilzg3920 [place] [address]DrNancy Frazier MCV (RBC) [Entitic vol] 85.9 fL Normal 80.0-94.0 The [facility] Comment on above: Performed By: #### C BC ####[facility] Aeejersfdf840[address] [place], [place] [address]DrNancy Frazier MONO # 1.0 103/ul Critically high 0.3-0.8 [facility] Comment on above: Performed By: #### C BC ####[facility] Mevpqbbolz862[address] [place], [place] [address]DrNancy Frazier Monocytes/100 WBC (Bld) 8.6 % Normal 1.7-12.0 The [facility] Comment on above: Performed By: #### C BC ####[facility] Pmtcmdqwid1117[address] [place], [place] [address]DrNancy Frazier NEUT # 7.0 103/ul Critically high 1.4-6.5 [facility] Comment on above: Performed By: #### C BC ####[facility] Pohpzoogpe8412[address] [place], [place] [address]DrNancy Frazier Neutrophils/100 WBC (Bld) 63.1 % Normal 43.0-75.0 The [facility] Comment on above: Performed By: #### C BC ####[facility] Mbwmbdyysk863[address] [place], [place] [address]DrNancy Frazier Platelet mean volume (Bld) [Entitic vol] 10.4 fL Normal 9.5-13.5 The [facility] Comment on above: Performed By: #### C BC ####[facility] Yzllztleeh318[address] [place], [place] [address]DrNancy Frazier PLT 308 103/ul Normal 150-450 [facility] Comment on above: Performed By: #### C BC ####[facility] Mloeyvdtyr3480[address] [place], [place] [address]DrNancy Frazier RBC 4.90 106/ul Normal 4.70-6.10 The [facility] Comment on above: Performed By: #### C BC ####[facility] Uknjdlngqm0062 [place] [id number]. Chrissy Frazier WBC 11.1 103/ul Critically high 4.0-11.0 [facility] Comment on above: Performed By: #### C BC ####[facility] Uoorljzpfl6715 [place] [address]DrNancy Frazier PROF 14(COMP METB)on 022 Albumin [Mass/Vol] 3.5 g/dL Normal 3.4-5.0 [facility] Comment on above: Performed By: #### C MP ####[facility] Xjmhsbqqwv4839[address] [place], [place] [address]DrNancy Frazier Albumin/Globulin [Mass ratio] 0.9 {ratio} Normal [facility] Comment on above: Performed By: #### C MP ####[facility] Hasczxyejf8513[address] [place], [place] [address]Dr. Chrissy Frazier ALP [Catalytic activity/Vol] 68 U/L Normal 46-116 [facility] Comment on above: Performed By: #### C MP ####[facility] Rxnimoukgq7110[address] [place], [place] [address]DrNancy Frazier ALT [Catalytic activity/Vol] 113 U/L Critically high 16-63 The [facility] Comment on above: Performed By: #### C MP ####[facility] Cyqchlkohu044[address] [place], [place] [address]DrNancy Frazier Anion gap [Moles/Vol] 14.0 mmol/L Normal [facility] Comment on above: Performed By: #### C MP ####[facility] Qcpbygeied9440[address] [place], [place] [address]DrNancy Frazier AST [Catalytic activity/Vol] 31 U/L Normal 15-37 [facility] Comment on above: Performed By: #### C MP ####[facility] Rnpileulgo4317[address] [place], [place] [address]DrNancy Frazier Bilirubin [Mass/Vol] 0.6 mg/dL Normal 0.2-1.0 [facility] Comment on above: Performed By: #### C MP ####[facility] Cnbjthzifz87[address] [place] [address]Dr. Chrissy Frazier Calcium [Mass/Vol] 8.4 mg/dL Critically low 8.5-10.1 Th e [facility] Comment on above: Performed By: #### C MP ####[facility] Gxeamswzff6[address] [place] [address]Dr. Chrissy Frazier Chloride [Moles/Vol] 101 mmol/L Normal 98-107 [facility] Comment on above: Performed By: #### C MP ####[facility] Hvokxnuocj8537[address] [place], [place] [address]Dr. Chrissy Frazier CO2 [Moles/Vol] 24.2 mmol/L Normal 21.0-32.0 [facility] Comment on above: Performed By: #### C MP ####[facility] Hhzmiqlghi20[address] [place], [place] [address]Dr. Chrissy Freddie Creatinine [Mass/Vol] 1.15 mg/dL Normal 0.70-1.30 [facility] Comment on above: Performed By: #### C MP ####[facility] Kacumbbzhc397[address] [place], [place] [address]Dr. Chrissy Freddie EGFR-AF GRE[place]IC >60 Normal >=60 [facility] Comment on above: Performed By: #### C MP ####[facility] Vwuojmihnh1086 [place] [address]Dr. Tishrowan Freddie EGFR-NON AF [place]IC >60 Normal >=60 [facility] Comment on above: Performed By: #### C MP ####[facility] Qcnvipnitj0122 [place] [address]Dr. Chrissy Frazier Globulin (S) [Mass/Vol] 3.8 g/dL Normal [facility] Comment on above: Performed By: #### C MP ####[facility] Rtympymzzl7585[address] [place], [place] [address]Dr. Chrissy Frazier Glucose [Mass/Vol] 100 mg/dL Normal 74-106 [facility] Comment on above: Performed By: #### C MP ####[facility] Lwkkspimad76[address] [place] [address]Dr. Chrissy Freddie Potassium [Moles/Vol] 3.2 mmol/L Critically low 3.5-5.1 [facility] Comment on above: Performed By: #### C MP ####[facility] Vbrnsoybzz3600[address] [place], [place] [address]Dr. Chrissy Frazier Protein [Mass/Vol] 7.3 g/dL Normal 6.4-8.2 [facility] Comment on above: Performed By: #### C MP ####[facility] Xxzvwwchsb129[address] [place], [place] [address]Dr. Chrissy Frazier Sodium [Moles/Vol] 136 mmol/L Normal 136-145 [facility] Comment on above: Performed By: #### C MP ####[facility] Efmqkrpalh1509[address] [place], [place] [address]Dr. Chrissy Frazier Urea nitrogen [Mass/Vol] 13.0 mg/dL Normal 7.0-18.0 [facility] Comment on above: Performed By: #### C MP ####[facility] Kvrdpvjjyh525[address] [place], [place] [address]Dr. Chrissy Frazier Urea nitrogen/Creatinine [Mass ratio] 11.3 mg/mg Normal [facility] Comment on above: Performed By: #### C MP ####[facility] Sreutqxceq516[address] [place], [place] [address]Dr. Chrissy Frazier AMMONIAon 03-30-2022 Ammonia (P) [Mass/Vol] ug/dL Critically low 11-32 [facility] Comment on above: Performed By: #### A MM ####[facility] Qnbvurluni588[address] [place], [place] [address]Dr. Chrissy Frazier CBC AUTO DIFFon 03-30-2022 BASO # 0.1 103/ul Normal 0.0-0.1 [facility] Comment on above: Performed By: #### C BC ####[facility] Pcbihimzbv1844[address] [place], [place] [address]Dr. Chrissy Frazier Basophils/100 WBC (Bld) 0.5 % Normal 0.2-2.0 [facility] Comment on above: Performed By: #### C BC ####[facility] Uzmhhcyyjt9825[address] [place], [place] [address]Dr. Chrissy Frazier EO # 0.1 103/ul Normal 0.0-0.7 [facility] Comment on above: Performed By: #### C BC ####[facility] Tnapidhwwh1814[address] [place], [place] [address]Dr. Chrissy Frazier Eosinophils/100 WBC (Bld) 1.1 % Normal 0.9-7.0 [facility] Comment on above: Performed By: #### C BC ####[facility] Fqzirglcrj108[address] [place], [place] [address]Dr. Chrissy Frazier Erythrocyte distribution width (RBC) [Ratio] 13.4 % Normal 11.0-15.0 [facility] Comment on above: Performed By: #### C BC ####[facility] Ztcotzzqsz357[address] [place], [place] [address]Dr. Chrissy Frazier Hematocrit (Bld) [Volume fraction] 45.8 % Normal 42.0-54.0 [facility] Comment on above: Performed By: #### C BC ####[facility] Jwnqeiiwxb514[address] [place], [place] [address]Dr. Chrissy Frazier Hemoglobin (Bld) [Mass/Vol] 14.9 g/dL Normal 14.0-18.0 [facility] Comment on above: Performed By: #### C BC ####[facility] Kughsmksen8688[address] [place], [place] [address]Dr. Chrissy Frazier IG # 0.05 10e3/ul Critically high 0.00-0.03 [facility] Comment on above: Performed By: #### C BC ####[facility] Dvetmczpoh670[address] [place], [place] [address]Dr. Chrissy Frazier IG % 0.5 % Normal 0.0-0.5 [facility] Comment on above: Performed By: #### C BC ####[facility] Lqzbojgkws[address] [place], [place] [address]DrNancy Frazier LYMPH # 3.0 103/ul Normal 1.2-3.8 The [facility] Comment on above: Performed By: #### C BC ####[facility] Nrhacmclbj6216 [place] [id number] Frazier Lymphocytes/100 WBC (Bld) 30.2 % Normal 20.5-60.0 The [facility] Comment on above: Performed By: #### C BC ####[facility] Frzpzyrrhm9027[address] [place], [place] [address]DrNancy Frazier MANUAL DIFF REQ NO Normal [facility] Comment on above: Performed By: #### C BC ####[facility] Tkbabyvfqd4414 [place] [address]DrNancy Frazier MCH (RBC) [Entitic mass] 28.4 pg Normal 25.9-34.0 [facility] Comment on above: Performed By: #### C BC ####[facility] Gxeiivncqs913[address] [place], [place] [address]DrNancy Frazier MCHC (RBC) [Mass/Vol] 32.5 g/dL Normal 29.9-35.2 [facility] Comment on above: Performed By: #### C BC ####[facility] Yyoalkpbxu[address] [place], [place] [address]DrNancy Frazier MCV (RBC) [Entitic vol] 87.4 fL Normal 80.0-94.0 [facility] Comment on above: Performed By: #### C BC ####[facility] Zgbefvyaze49[address] [place], [place] [address]DrNancy Frazier MONO # 0.8 103/ul Normal 0.3-0.8 The [facility] Comment on above: Performed By: #### C BC ####[facility] Jqqigdubzx[address] [place], [place] [address]DrNancy Frazier Monocytes/100 WBC (Bld) 7.9 % Normal 1.7-12.0 [facility] Comment on above: Performed By: #### C BC ####[facility] Idutxcwdbk4[address] [place], [place] [address]DrNancy Frazier NEUT # 5.9 103/ul Normal 1.4-6.5 [facility] Comment on above: Performed By: #### C BC ####[facility] [address]os[address] [place] [address]Dr. Chrissy Frazier Neutrophils/100 WBC (Bld) 59.8 % Normal 43.0-75.0 [facility] Comment on above: Performed By: #### C BC ####[facility] Uyslqpczyx023[address] [place], [place] [address]Dr. Chrissy Frazier Platelet mean volume (Bld) [Entitic vol] 10.1 fL Normal 9.5-13.5 [facility] Comment on above: Performed By: #### C BC ####[facility] Mbvkorgkky896[address] [place], [place] [address]Dr. Chrissy Frazier PLT 320 103/ul Normal 150-450 [facility] Comment on above: Performed By: #### C BC ####[facility] Bnnvjlclyg0018[address] [place], [place] [address]Dr. Chrissy Frazier RBC 5.24 106/ul Normal 4.70-6.10 [facility] Comment on above: Performed By: #### C BC ####[facility] Jidhxsrpzo422[address] [place], [place] [address]Dr. Chrissy Frazier WBC 9.9 103/ul Normal 4.0-11.0 [facility] Comment on above: Performed By: #### C BC ####[facility] Ecjaprioph[address] [place], [place] [address]Dr. Chrissy Frzaier PROF 14(COMP METB)on 022 Albumin [Mass/Vol] 3.9 g/dL Normal 3.4-5.0 [facility] Comment on above: Performed By: #### C MP ####[facility] Wnruajdjhb714[address] [place], [place] [address]DrNancy Frazier Albumin/Globulin [Mass ratio] 1.1 {ratio} Normal [facility] Comment on above: Performed By: #### C MP ####[facility] Dhggismotg033[address] [place], [place] [address]Dr. Chrissy Frazier ALP [Catalytic activity/Vol] 88 U/L Normal 46-116 [facility] Comment on above: Performed By: #### C MP ####[facility] Zlu[address]kdxzr[address] [place] [address]Dr. Chrissy Frazier ALT [Catalytic activity/Vol] 161 U/L Critically high 16-63 [facility] Comment on above: Performed By: #### C MP ####[facility] Rxcdrprwpz9[address] [place] [address]Dr. Chrissy Frazier Anion gap [Moles/Vol] 12.3 mmol/L Normal [facility] Comment on above: Performed By: #### C MP ####[facility] Dywlyvvfxf9189[address] [place], [place] [address]Dr. Chrissy Frazier AST [Catalytic activity/Vol] 64 U/L Critically high 15-37 [facility] Comment on above: Performed By: #### C MP ####[facility] Udkinftsok9869[address] [place], [place] [address]Dr. Chrissy Frazier Bilirubin [Mass/Vol] 0.8 mg/dL Normal 0.2-1.0 [facility] Comment on above: Performed By: #### C MP ####[facility] Txdeczngia811[address] [place], [place] [address]Dr. Chrissy Frazier Calcium [Mass/Vol] 8.4 mg/dL Critically low 8.5-10.1 [facility] Comment on above: Performed By: #### C MP ####[facility] Qfnrlumofd3009[address] [place], [place] [address]Dr. Chrissy Frazier Chloride [Moles/Vol] 103 mmol/L Normal 98-107 [facility] Comment on above: Performed By: #### C MP ####[facility] Wwpknlwaxw4955[address] [place], [place] [address]Dr. Chrissy Frazier CO2 [Moles/Vol] 26.5 mmol/L Normal 21.0-32.0 [facility] Comment on above: Performed By: #### C MP ####[facility] Ipyogztbyo1310[address] [place], [place] [address]Dr. Chrissy Freddie Creatinine [Mass/Vol] 1.24 mg/dL Normal 0.70-1.30 [facility] Comment on above: Performed By: #### C MP ####[facility] [address]qtzvbtmx[address] [place] [address]Dr. Chrissy Frazier EGFR-AF GREENLANDIC >60 Normal >=60 [facility] Comment on above: Performed By: #### C MP ####[facility] Lygnjgamtm[address] [place] [id number]. Chrissy Freddie EGFR-NON AF GREENLANDIC >60 Normal >=60 [facility] Comment on above: Performed By: #### C MP ####[facility] Cysdixaybc95[address] [place] [id number]. Chrissy Freddie Globulin (S) [Mass/Vol] 3.7 g/dL Normal [facility] Comment on above: Performed By: #### C MP ####[facility] Jbmoysfzlj63[address] [place] [address]Dr. Tishrowan Freddie Glucose [Mass/Vol] 108 mg/dL Critically high 74-106 [facility] Comment on above: Performed By: #### C MP ####[facility] Migkqjzcoh38[address] [place] [address]Dr. Chrissy Freddie Potassium [Moles/Vol] 3.8 mmol/L Normal 3.5-5.1 [facility] Comment on above: Performed By: #### C MP ####[facility] Djhwitkeho6[address] [place] [address]Dr. Chrissy Freddie Protein [Mass/Vol] 7.6 g/dL Normal 6.4-8.2 [facility] Comment on above: Performed By: #### C MP ####[facility] Vcujbbykpw7[address] [place] [address]Dr. Tishrowan Frazier Sodium [Moles/Vol] 138 mmol/L Normal 136-145 [facility] Comment on above: Performed By: #### C MP ####[facility] Zdomuhxnja3[address] [place] [address]Dr. Chrissy Frazier Urea nitrogen [Mass/Vol] 12.0 mg/dL Normal 7.0-18.0 [facility] Comment on above: Performed By: #### C MP ####[facility] Xwteqbqbco[address] [place], [place] [address]Dr. Chrissy Frazier Urea nitrogen/Creatinine [Mass ratio] 9.7 mg/mg Normal [facility] Comment on above: Performed By: #### C MP ####[facility] Ruufffggsl[address] [place] [address]Dr. Chrissy Frazier AMMONIAon 03-29-2022 Ammonia (P) [Moles/Vol] 27 umol/L Normal 11-32 [facility] Comment on above: Performed By: #### A MM ####[facility] Iafsxsialh101[address] [place], [place] [address]Dr. Chrissy Frazier AMYLASEon 03-29-2022 Amylase [Catalytic activity/Vol] 29 U/L Normal 25-115 [facility] Comment on above: Performed By: #### L IPA, TERRENCE ####[facility] Mqnefetufk786[address] [place], [place] [address]Dr. Chrissy Frazier CBC AUTO DIFFon 03-29-2022 BASO # 0.0 103/ul Normal 0.0-0.1 [facility] Comment on above: Performed By: #### C BC ####[facility] Xvxeyntubk884[address] [place], [place] [address]Dr. Chrissy Freddie Basophils/100 WBC (Bld) 0.2 % Normal 0.2-2.0 The [facility] Comment on above: Performed By: #### C BC ####[facility] Rnwyppakte6840[address] [place], [place] [address]Dr. Chrissy Frazier EO # 0.0 103/ul Normal 0.0-0.7 [facility] Comment on above: Performed By: #### C BC ####[facility] Smwrkcvqgi118[address] [place], [place] [address]Dr. Chrissy Freddie Eosinophils/100 WBC (Bld) 0.4 % Critically low 0.9-7.0 The [facility] Comment on above: Performed By: #### C BC ####[facility] Misdzkyroe9535[address] [place], [place] [address]Dr. Chrissy Frazier Erythrocyte distribution width (RBC) [Ratio] 13.6 % Normal 11.0-15.0 [facility] Comment on above: Performed By: #### C BC ####[facility] Otefurryct[address] [place] [address]Dr. Chrissy Frazier Hematocrit (Bld) [Volume fraction] 45.2 % Normal 42.0-54.0 [facility] Comment on above: Performed By: #### C BC ####[facility] Qfxegdgqxb1401[address] [place], [place] [address]Dr. Chrissy Frazier Hemoglobin (Bld) [Mass/Vol] 14.8 g/dL Normal 14.0-18.0 [facility] Comment on above: Performed By: #### C BC ####[facility] Tpslseuifs225[address] [place], [place] [address]Dr. Chrissy Frazier IG # 0.03 10e3/ul Normal 0.00-0.03 [facility] Comment on above: Performed By: #### C BC ####[facility] Ltnchzuvur499[address] [place], [place] [address]Dr. Tishrowan Frazier IG % 0.3 % Normal 0.0-0.5 [facility] Comment on above: Performed By: #### C BC ####[facility] Agtvfacakp9210[address] [place], [place] [address]Dr. Chrissy Frazier LYMPH # 2.0 103/ul Normal 1.2-3.8 [facility] Comment on above: Performed By: #### C BC ####[facility] Jiutoopfmv5944[address] [place], [place] [address]Dr. Chrissy Frazier Lymphocytes/100 WBC (Bld) 18.3 % Critically low 20.5-60.0 [facility] Comment on above: Performed By: #### C BC ####[facility] Rctsggjmss5880[address] [place], [place] [address]Dr. Chrissy Frazier MANUAL DIFF REQ NO Normal [facility] Comment on above: Performed By: #### C BC ####[facility] Getazfbrgo978[address] [place], [place] [address]Dr. Chrissy Frazier MCH (RBC) [Entitic mass] 28.5 pg Normal 25.9-34.0 [facility] Comment on above: Performed By: #### C BC ####[facility] Wrbjewtzlr[address] [place] [address]DraNncy Frazier MCHC (RBC) [Mass/Vol] 32.7 g/dL Normal 29.9-35.2 [facility] Comment on above: Performed By: #### C BC ####[facility] Mewkczcuee[address] [place] [address]DrNancy Frazier MCV (RBC) [Entitic vol] 87.1 fL Normal 80.0-94.0 [facility] Comment on above: Performed By: #### C BC ####[facility] Ybkqgawlvf189[address] [place], [place] [address]DrNancy Frazier MONO # 0.9 103/ul Critically high 0.3-0.8 [facility] Comment on above: Performed By: #### C BC ####[facility] Emmplhgsyd5040[address] [place], [place] [address]DrNancy Frazier Monocytes/100 WBC (Bld) 8.6 % Normal 1.7-12.0 [facility] Comment on above: Performed By: #### C BC ####[facility] Qbjjuwnogm3685[address] [place], [place] [address]DrNancy Frazier NEUT # 7.8 103/ul Critically high 1.4-6.5 [facility] Comment on above: Performed By: #### C BC ####[facility] Mwpgjhikkv1009[address] [place], [place] [address]DrNancy Frazier Neutrophils/100 WBC (Bld) 72.2 % Normal 43.0-75.0 [facility] Comment on above: Performed By: #### C BC ####[facility] Vawkqghtsg[address] [place], [place] [address]DrNancy Frazier Platelet mean volume (Bld) [Entitic vol] 10.1 fL Normal 9.5-13.5 [facility] Comment on above: Performed By: #### C BC ####[facility] Zaiefovhhd854[address] [place], [place] [address]Dr. Chrissy Frazier PLT 329 103/ul Normal 150-450 [facility] Comment on above: Performed By: #### C BC ####[facility] P[address]tfkfegac[address] [place] [address]Dr. Chrissy Frazier RBC 5.19 106/ul Normal 4.70-6.10 [facility] Comment on above: Performed By: #### C BC ####[facility] Ofhmlooanm230[address] [place] [address]Dr. Chrissy Frazier WBC 10.8 103/ul Normal 4.0-11.0 [facility] Comment on above: Performed By: #### C BC ####[facility] Talcqkcacv37[address] [place] [address]Dr. Chrissy Freddie LIPASEon 03-29-2022 Lipase [Catalytic activity/Vol] 58.0 U/L Critically low 73.0-393.0 [facility] Comment on above: Performed By: #### L TERRENCE VICTORIA ####[facility] Wdnplecixf7769[address] [place], [place] [address]Dr. Chrissy Freddie NM HEPATOBILIARY SCAN W EFon 03-29-2022 NM HEPATOBILIARY SCAN W EF Normal The [facility] PROF 14(COMP METB)on 022 Albumin [Mass/Vol] 3.8 g/dL Normal 3.4-5.0 [facility] Comment on above: Performed By: #### C MP ####[facility] Ebcdloxkgl[address] [place] [address]DrNancy Winstonrowan Freddie Albumin/Globulin [Mass ratio] 1.0 {ratio} Normal [facility] Comment on above: Performed By: #### C MP ####[facility] Harecdcwxe[address] [place] [address]Dr. Chrissy Frazier ALP [Catalytic activity/Vol] 69 U/L Normal 46-116 [facility] Comment on above: Performed By: #### C MP ####[facility] Fskuafnboh78[address] [place] [address]Dr. Chrissy Frazier ALT [Catalytic activity/Vol] 117 U/L Critically high 16-63 [facility] Comment on above: Performed By: #### C MP ####[facility] Ujgrhvrwlu44[address] [place] [address]Dr. Chrissy Frazier Anion gap [Moles/Vol] 16.7 mmol/L Normal [facility] Comment on above: Performed By: #### C MP ####[facility] Uwjdzzjftf[address] [place], [place] [address]Dr. Chrissy Frazier AST [Catalytic activity/Vol] 77 U/L Critically high 15-37 [facility] Comment on above: Performed By: #### C MP ####[facility] Nbjvpmqgxi008[address] [place], [place] [address]Dr. Chrissy Frazier Bilirubin [Mass/Vol] 1.5 mg/dL Critically high 0.2-1.0 [facility] Comment on above: Performed By: #### C MP ####[facility] Yzcoilenma415[address] [place], [place] [address]Dr. Chrissy Frazier Calcium [Mass/Vol] 8.1 mg/dL Critically low 8.5-10.1 [facility] Comment on above: Performed By: #### C MP ####[facility] Btlynifrut495[address] [place], [place] [address]Dr. Chrissy Freddie Chloride [Moles/Vol] 101 mmol/L Normal 98-107 [facility] Comment on above: Performed By: #### C MP ####[facility] Eauiojeppd44[address] [place], [place] [address]Dr. Chrissy Frazier CO2 [Moles/Vol] 24.5 mmol/L Normal 21.0-32.0 [facility] Comment on above: Performed By: #### C MP ####[facility] Drttxubyrz00[address] [place], [place] [address]Dr. Chrissy Frazier Creatinine [Mass/Vol] 1.17 mg/dL Normal 0.70-1.30 The [facility] Comment on above: Performed By: #### C MP ####[facility] Vuwlkxttrn6175[address] [place], [place] [address]Dr. Chrissy Freddie EGFR-AF GREEN[place]IC >60 Normal >=60 [facility] Comment on above: Performed By: #### C MP ####[facility] Bewksjlsph[address] [place] [id number]. Chrissy Frazier EGFR-NON AF GRE[place]IC >60 Normal >=60 [facility] Comment on above: Performed By: #### C MP ####[facility] Nswnywgouk4357 [place] [id number]. Chrissy Frazier Globulin (S) [Mass/Vol] 3.9 g/dL Normal [facility] Comment on above: Performed By: #### C MP ####[facility] Mdqkmkkgkv110[address] [place] [address]Dr. Chrissy Frazier Glucose [Mass/Vol] 104 mg/dL Normal 74-106 The [facility] Comment on above: Performed By: #### C MP ####[facility] Umijpzlknm5454 [place] [address]Dr. Chrissy Frazier Potassium [Moles/Vol] 3.2 mmol/L Critically low 3.5-5.1 [facility] Comment on above: Performed By: #### C MP ####[facility] Vuyustzmpj277[address] [place], [place] [address]Dr. Chrissy Frazier Protein [Mass/Vol] 7.7 g/dL Normal 6.4-8.2 The [facility] Comment on above: Performed By: #### C MP ####[facility] Llxbcdtzvy8224[address] [place], [place] [address]Dr. Chrissy Frazier Sodium [Moles/Vol] 139 mmol/L Normal 136-145 The [facility] Comment on above: Performed By: #### C MP ####[facility] Fpbybaxdfq28[address] [place] [address]Dr. Chrissy Frazier Urea nitrogen [Mass/Vol] 11.0 mg/dL Normal 7.0-18.0 The [facility] Comment on above: Performed By: #### C MP ####[facility] Vipznsezah[address] [place] [address]Dr. Chrissy Frazier Urea nitrogen/Creatinine [Mass ratio] 9.4 mg/mg Normal [facility] Comment on above: Performed By: #### C MP ####[facility] Nfeufnepfi34[address] [place] [address]DrNancy Frazier US SINGLE QUAD RT UPPERon US SINGLE QUAD RT UPPER Normal [facility] AMMONIAon 03-28-2022 Ammonia (P) [Moles/Vol] 12 umol/L Normal 11-32 [facility] Comment on above: Performed By: #### A MM ####[facility] Riahtrqtmr69[address] [place], [place] [address]Dr. Chrissy Frazier CBC AUTO DIFFon 03-28-2022 BASO # 0.0 103/ul Normal 0.0-0.1 [facility] Comment on above: Performed By: #### C BC ####[facility] Cvwhjicwxh7409[address] [place], [place] [address]DrNancy Frazier Basophils/100 WBC (Bld) 0.1 % Critically low 0.2-2.0 The [facility] Comment on above: Performed By: #### C BC ####[facility] Zihbgohuls234[address] [place], [place] [address]DrNancy Frazier EO # 0.0 103/ul Normal 0.0-0.7 [facility] Comment on above: Performed By: #### C BC ####[facility] Bajilxfgtf3716[address] [place], [place] [address]DrNancy Frazier Eosinophils/100 WBC (Bld) 0.0 % Critically low 0.9-7.0 The [facility] Comment on above: Performed By: #### C BC ####[facility] Ajdzomqnwn228[address] [place], [place] [address]DrNancy Frazier Erythrocyte distribution width (RBC) [Ratio] 14.0 % Normal 11.0-15.0 The [facility] Comment on above: Performed By: #### C BC ####[facility] Uiamiocoew[address] [place], [place] [address]DrNancy Frazier Hematocrit (Bld) [Volume fraction] 44.2 % Normal 42.0-54.0 [facility] Comment on above: Performed By: #### C BC ####[facility] Ncvyrecdwt798[address] [place], [place] [address]DrNancy Frazier Hemoglobin (Bld) [Mass/Vol] 14.7 g/dL Normal 14.0-18.0 [facility] Comment on above: Performed By: #### C BC ####[facility] Chnfosiqpr6[address] [place] [address]DrNancy Frazier IG # 0.10 10e3/ul Critically high 0.00-0.03 [facility] Comment on above: Performed By: #### C BC ####[facility] Dqrxvtluve034[address] [place] [address]DrNancy Frazier IG % 0.5 % Normal 0.0-0.5 [facility] Comment on above: Performed By: #### C BC ####[facility] Yydoxgcbgn207[address] [place], [place] [address]DrNancy Frazier LYMPH # 2.6 103/ul Normal 1.2-3.8 [facility] Comment on above: Performed By: #### C BC ####[facility] Spvcsillqj712[address] [place], [place] [address]DrNancy Frazier Lymphocytes/100 WBC (Bld) 13.8 % Critically low 20.5-60.0 [facility] Comment on above: Performed By: #### C BC ####[facility] Qfsbeqcuqe2437[address] [place], [place] [address]DrNancy Farzier MANUAL DIFF REQ NO Normal [facility] Comment on above: Performed By: #### C BC ####[facility] Flkgknuomu9734[address] [place], [place] [address]DrNancy Frazier MCH (RBC) [Entitic mass] 29.0 pg Normal 25.9-34.0 [facility] Comment on above: Performed By: #### C BC ####[facility] Nsaoiqcxky6564[address] [place], [place] [address]DrNancy Frazier MCHC (RBC) [Mass/Vol] 33.3 g/dL Normal 29.9-35.2 [facility] Comment on above: Performed By: #### C BC ####[facility] Zxmwydhwys189[address] [place], [place] [address]Dr. Chrissy Frazier MCV (RBC) [Entitic vol] 87.2 fL Normal 80.0-94.0 [facility] Comment on above: Performed By: #### C BC ####[facility] Swqeosoboj[address] [place] [id number]. Winstonrowan Frazier MONO # 1.1 103/ul Critically high 0.3-0.8 [facility] Comment on above: Performed By: #### C BC ####[facility] Wyoxamlhdu[address] [place] [address]DrNancy Frazier Monocytes/100 WBC (Bld) 5.9 % Normal 1.7-12.0 [facility] Comment on above: Performed By: #### C BC ####[facility] Hzwamvgtlt6[address] [place], [place] [address]DrNancy Winstonrowan Frazier NEUT # 15.1 103/ul Critically high 1.4-6.5 [facility] Comment on above: Performed By: #### C BC ####[facility] Bdehzalyha0124[address] [place], [place] [address]DrNancy Frazier Neutrophils/100 WBC (Bld) 79.7 % Critically high 43.0-75.0 [facility] Comment on above: Performed By: #### C BC ####[facility] Koboiuyjvi7[address] [place], [place] [address]DrNancy Frazier Platelet mean volume (Bld) [Entitic vol] 10.3 fL Normal 9.5-13.5 [facility] Comment on above: Performed By: #### C BC ####[facility] Eaqpjmlwhx[address] [place], [place] [address]DrNancy Frazier PLT 358 103/ul Normal 150-450 [facility] Comment on above: Performed By: #### C BC ####[facility] B[address]qfcu[address] [place], [place] [address]DrNancy Frazier RBC 5.07 106/ul Normal 4.70-6.10 [facility] Comment on above: Performed By: #### C BC ####[facility] Gbxpyvxxho[address] [place], [place] [address]DrNancy Frazier WBC 18.9 103/ul Critically high 4.0-11.0 [facility] Comment on above: Performed By: #### C BC ####[facility] Tvmuatnzkc4838[address] [place], [place] [address]Dr. Chrissy Frazier PROF 14(COMP METB)on 022 Albumin [Mass/Vol] 3.9 g/dL Normal 3.4-5.0 [facility] Comment on above: Performed By: #### C MP ####[facility] Stpdiefnfl[address] [place], [place] [address]Dr. Chrissy Frazier Albumin/Globulin [Mass ratio] 1.1 {ratio} Normal [facility] Comment on above: Performed By: #### C MP ####[facility] Fydzadlvwe9[address] [place], [place] [address]Dr. Chrissy Frazier ALP [Catalytic activity/Vol] 65 U/L Normal 46-116 [facility] Comment on above: Performed By: #### C MP ####[facility] Yeyjwgerwe36[address] [place], [place] [address]Dr. Chrissy Frazier ALT [Catalytic activity/Vol] 46 U/L Normal 16-63 [facility] Comment on above: Performed By: #### C MP ####[facility] Xicuvoynol8[address] [place], [place] [address]Dr. Chrissy Frazier Anion gap [Moles/Vol] 13.2 mmol/L Normal [facility] Comment on above: Performed By: #### C MP ####[facility] Vdbblypefa4667[address] [address] [place], [place] [address]Dr. Chrissy Frazier AST [Catalytic activity/Vol] 33 U/L Normal 15-37 [facility] Comment on above: Performed By: #### C MP ####[facility] Lboyegplox[address] [place], [place] [address]Dr. Chrissy Frazier Bilirubin [Mass/Vol] 0.8 mg/dL Normal 0.2-1.0 [facility] Comment on above: Performed By: #### C MP ####[facility] Jwyudvnsea[address] [place], [place] [address]Dr. Chrissy Frazier Calcium [Mass/Vol] 8.1 mg/dL Critically low 8.5-10.1 [facility] Comment on above: Performed By: #### C MP ####[facility] [address] [place] [address]Dr. Chrissy Frazier Chloride [Moles/Vol] 102 mmol/L Normal 98-107 [facility] Comment on above: Performed By: #### C MP ####[facility] [address]nhcp[address] [place] [address]Dr. Chrissy Frazier CO2 [Moles/Vol] 24.0 mmol/L Normal 21.0-32.0 The [facility] Comment on above: Performed By: #### C MP ####[facility] Xxgcfarkqf[address] [place], [place] [address]Dr. Chrissy Freddie Creatinine [Mass/Vol] 1.26 mg/dL Normal 0.70-1.30 [facility] Comment on above: Performed By: #### C MP ####[facility] Jdczzvmiqa[address] [place], [place] [address]Dr. Chrissy Freddie EGFR-AF GREENLANDIC >60 Normal >=60 [facility] Comment on above: Performed By: #### C MP ####[facility] Jufekumhov[address] [place], [place] [address]Dr. Tishrowan Freddie EGFR-NON AF GREENLANDIC >60 Normal >=60 [facility] Comment on above: Performed By: #### C MP ####[facility] [address] [place] [address]Dr. Chrissy Frazier Globulin (S) [Mass/Vol] 3.7 g/dL Normal [facility] Comment on above: Performed By: #### C MP ####[facility] Lve[address]pgsge[address] [place] [address]Dr. Chrissy Frazier Glucose [Mass/Vol] 119 mg/dL Critically high 74-106 [facility] Comment on above: Performed By: #### C MP ####[facility] [address]jfbogx[address] [place] [address]Dr. Chrissy Frazier Potassium [Moles/Vol] 3.2 mmol/L Critically low 3.5-5.1 [facility] Comment on above: Performed By: #### C MP ####[facility] [address] [place] [address]Dr. Chrissy Frazier Protein [Mass/Vol] 7.6 g/dL Normal 6.4-8.2 The [facility] Comment on above: Performed By: #### C MP ####[facility] Qqgutbfmpi[address] [place] [address]Dr. Chrissy Frazier Sodium [Moles/Vol] 136 mmol/L Normal 136-145 [facility] Comment on above: Performed By: #### C MP ####[facility] Ddonpvctjd[address] [place] [address]Dr. Chrissy Frazier Urea nitrogen [Mass/Vol] 14.0 mg/dL Normal 7.0-18.0 [facility] Comment on above: Performed By: #### C MP ####[facility] [address]tiuv[address] [place] [address]Dr. Chrissy Frazier Urea nitrogen/Creatinine [Mass ratio] 11.1 mg/mg Normal [facility] Comment on above: Performed By: #### C MP ####[facility] [address]oezay[address] [place] [address]Dr. Chrissy Frazier CBC W MANUAL DIFFon 03-27-20 22 ATYPICAL LYMPH # Normal [facility] Comment on above: Performed By: #### C BCMAN ####[facility] [address]spcseda[address] [place] [address]Dr. Chrissy Freddie ATYPICAL LYMPH % Normal The [facility] Comment on above: Performed By: #### C BCMAN ####[facility] Lfpruubxmj[address] [place] [id number]. Chrissy Frazier BAND # 0.0 103/ul Normal 0.0-0.3 [facility] Comment on above: Performed By: #### C BCMAN ####[facility] [address]kspunvoe[address] [place] [address]Dr. Chrissy Frazier BAND % 0 % Normal 0-5 [facility] Comment on above: Performed By: #### C BCMAN ####[facility] Aqkrsnimhp[address] [place] [address]Dr. Chrissy Frazier BASOM # 0.00 103/ul Normal 0.00-0.10 [facility] Comment on above: Performed By: #### C BCMAN ####[facility] Udlbhxyscz[address] [place] [address]Dr. Chrissy Frazier BASOM % 0.0 % Critically low 0.2-2.0 The [facility] Comment on above: Performed By: #### C BCMAN ####[facility] Cwttknzwsg[address] [place] [address]Dr. Chrissy Frazier BLAST # Normal [facility] Comment on above: Performed By: #### C BCLEANDRO ####[facility] Zaevhnodex[address] [place], [place] [address]Dr. Chrissy Frazier BLAST % Normal [facility] Comment on above: Performed By: #### C BCLEANDRO ####[facility] Trtrdxlhil[address] [place], [place] [address]Dr. Chrissy Frazier CORRECTED WBC Normal 4.0-11.0 The [facility] Comment on above: Performed By: #### C BCLEANDRO ####[facility] Vbtgbxdfaq[address] [place], [place] [address]Dr. Chrissy Frazier EOS # 0.00 103/ul Normal 0.00-0.70 [facility] Comment on above: Performed By: #### C BCLEANDRO ####[facility] Pleylajxqj[address] [place], [place] [address]Dr. Chrissy Frazier EOS% 0.0 % Critically low 0.9-7.0 The [facility] Comment on above: Performed By: #### C BCLEANDRO ####[facility] F[address]rmozfonz[address] [place], [place] [address]Dr. Chrissy Frazier HCT 47.3 % Normal 42.0-54.0 [facility] Comment on above: Performed By: #### C BCMAN ####[facility] Fidnmkdehu[address] [place], [place] [address]Dr. Chrissy Frazier HGB 16.4 g/dl Normal 14.0-18.0 [facility] Comment on above: Performed By: #### C BCMAN ####[facility] [address] [place], [place] [address]Nw. Chrissy Frazier LYMPHM # 2.31 103/ul Normal 1.20-3.80 [facility] Comment on above: Performed By: #### C ANTONETTE ####[facility] [address]xsrcl[address] [place], [place] [address]Tv. Chrissy Frazier LYMPHM% 9.0 % Critically low 20.5-60.0 The [facility] Comment on above: Performed By: #### C ANTONETTE ####[facility] [address]ks[address]ulkzhh[address] [place] [id number]. Chrissy Frazier MCH 28.6 pg Normal 25.9-34.0 [facility] Comment on above: Performed By: #### C ANTONETTE ####[facility] Kyaeamsufu[address] [place] [id number]. Chrissy Frazier MCHC 34.7 g/dl Normal 29.9-35.2 [facility] Comment on above: Performed By: #### C ANTONETTE ####[facility] Omqlaeywqo[address] [place] [phone]. Chrissy Frazier MCV 82.4 fL Normal 80.0-94.0 [facility] Comment on above: Performed By: #### C ANTONETTE ####[facility] Vzpuefznpi[address] [place] [phone]. Chrissy Frazier METAMYELOCYTE # Normal The [facility] Comment on above: Performed By: #### C ANTONETTE ####[facility] Fujiikmnjm[address] [place] [phone]. Chrissy Frazier METAMYELOCYTE % Normal [facility] Comment on above: Performed By: #### C ANTONETTE ####[facility] Yfxbapmgcx[address] [place] [phone]. Chrissy Frazier MONOM# 3.85 103/ul Critically high 0.30-0.80 [facility] Comment on above: Performed By: #### C ANTONETTE ####[facility] Efcbtzugqn15[address] [place] [phone]. Chrissy Frazier MONOM% 15.0 % Critically high 1.7-12.0 [facility] Comment on above: Performed By: #### C ANTONETTE ####[facility] Azakyvjisi[address] [place] [phone]. Chrissy Frazier MPV 10.6 fL Normal 9.5-13.5 [facility] Comment on above: Performed By: #### C ANTONETTE ####[facility] Tjgsfr[address]akv[address] [place] [phone]. Chrissy Frazier MYELOCYTE # Normal [facility] Comment on above: Performed By: #### C ANTONETTE ####[facility] Fpsvyncqcu29[address] [place] [phone]. Chrissy Frazier MYELOCYTE % Normal [facility] Comment on above: Performed By: #### C ANTONETTE ####[facility] Qvtkiyzkmd[address] [place] [phone]. Chrissy Frazier NRBC Normal [facility] Comment on above: Performed By: #### C ANTONETTE ####[facility] Zqqjgocsbd36[address] [place] [phone]. Chrissy Frazier PLT 471 103/ul Critically high 150-450 The [facility] Comment on above: Performed By: #### C ANTONETTE ####[facility] Upjpqdyfls[address] [place] [phone]. Chrissy Frazier RBC 5.74 106/ul Normal 4.70-6.10 [facility] Comment on above: Performed By: #### C ATNONETTE ####[facility] Thdxowhgkq[address] [place] [phone]. Chrissy Frazier RDW 13.7 % Normal 11.0-15.0 [facility] Comment on above: Performed By: #### C ANTONETTE ####[facility] B[address]bkubjwu[address] [place] [phone]. Chrissy Frazier SEG # 19.53 103/ul Critically high 1.40-6.50 [facility] Comment on above: Performed By: #### C ANTONETTE ####[facility] Tfiimtyqdt[address] [place] [phone]. Chrissy Frazier SEG % 76.0 % Critically high 43.0-75.0 The [facility] Comment on above: Performed By: #### C BCMAN ####[facility] X[address]cylylcs[address] [place] [address]Dr. Chrissy Frazier TOXIC GRANULATION SLIGHT Normal The [facility] Comment on above: Result Comment: few vacoules Performed By: #### C BCMAN ####[facility] Mpfcrcbgar[address] [place] [address]Dr. Chrissy Frazier WBC 25.7 103/ul Critically high 4.0-11.0 [facility] Comment on above: Performed By: #### C ANTONETTE ####[facility] J[address]wzc[address] [place], [place] [address]Dr. Chrissy Freddie LACTATE/LACTIC ACIDon 2021 Lactate [Moles/Vol] 2.4 mmol/L Critically high 0.4-1.9 [facility] Comment on above: Performed By: #### L ACT ####[facility] Ctfanblilv[address] [place], [place] [address]Dr. Chrissy Frazier Lactate [Moles/Vol] 3.5 mmol/L Critically high 0.4-1.9 [facility] Comment on above: Performed By: #### L ACT ####[facility] Humyykpymn[address] [place], [place] [address]Dr. Chrissy Frazier LIPASEon 03-27-2022 Lipase [Catalytic activity/Vol] 43.0 U/L Critically low 73.0-393.0 [facility] Comment on above: Performed By: #### C MP, LIPA ####[facility] Szdpsiphic[address] [place] [address]Dr. Chrissy Frazier PROF 14(COMP METB)on 022 Albumin [Mass/Vol] 4.7 g/dL Normal 3.4-5.0 The [facility] Comment on above: Performed By: #### C MP, LIPA ####[facility] Msjzeqtase[address] [place], [place] [address]Dr. Tishrowan Frazier Albumin/Globulin [Mass ratio] 1.1 {ratio} Normal [facility] Comment on above: Performed By: #### C MP, LIPA ####[facility] Vtxbyfdbnn[address] [place] [address]Dr. Chrissy Frazier ALP [Catalytic activity/Vol] 69 U/L Normal 46-116 [facility] Comment on above: Performed By: #### C MP, LIPA ####[facility] Otajntfhea[address] [place] [address]Dr. Chrissy Frazier ALT [Catalytic activity/Vol] 47 U/L Normal 16-63 [facility] Comment on above: Performed By: #### C MP, LIPA ####[facility] Af[address]atupfmy[address] [place] [address]Dr. Chrissy Frazier Anion gap [Moles/Vol] 23.2 mmol/L Normal [facility] Comment on above: Performed By: #### C MP, LIPA ####[facility] Oygnqhvtik[address] [place], [place] [address]Dr. Chrissy Frazier AST [Catalytic activity/Vol] 23 U/L Normal 15-37 [facility] Comment on above: Performed By: #### C MP, LIPA ####[facility] Twahjrxopc[address] [place], [place] [address]Dr. Chrissy Frazier Bilirubin [Mass/Vol] 0.7 mg/dL Normal 0.2-1.0 [facility] Comment on above: Performed By: #### C MP, LIPA ####[facility] Umlhyffzlf[address] [place], [place] [address]Dr. Chrissy Frazier Calcium [Mass/Vol] 9.2 mg/dL Normal 8.5-10.1 [facility] Comment on above: Performed By: #### C MP, LIPA ####[facility] Elcicdlwna[address] [place] [address]Dr. Chrissy Freddie Chloride [Moles/Vol] 97 mmol/L Critically low 98-107 [facility] Comment on above: Performed By: #### C MP, LIPA ####[facility] Vqnveiqgwd[address] [place], [place] [address]Dr. Chrissy Freddie CO2 [Moles/Vol] 18.2 mmol/L Critically low 21.0-32.0 [facility] Comment on above: Performed By: #### C MP, LIPA ####[facility] Faclwxxrld[address] [place], [place] [address]Dr. Chrissy Frazier Creatinine [Mass/Vol] 1.77 mg/dL Critically high 0.70-1.30 [facility] Comment on above: Performed By: #### C MP, LIPA ####[facility] V[address]fojofxrj[address] [place], [place] [address]Dr. Chrissy Frazier EGFR-AF GREENLANDIC 54 mL/min/1.73m2 Critically low >=60 [facility] Comment on above: Performed By: #### C MP, LIPA ####[facility] Znzhogxlgl[address] [place], [place] [address]Dr. Chrissy Freddie EGFR-NON AF GRE[place]IC 45 mL/min/1.73m2 Critically low >=60 [facility] Comment on above: Performed By: #### C MP, LIPA ####[facility] Lep[address]tgduc[address] [place], [place] [address]Dr. Chrissy Freddie Globulin (S) [Mass/Vol] 4.4 g/dL Normal [facility] Comment on above: Performed By: #### C MP, LIPA ####[facility] [address]ylburl[address] [place], [place] [address]Dr. Chrissy Frazier Glucose [Mass/Vol] 131 mg/dL Critically high 74-106 [facility] Comment on above: Performed By: #### C MP, LIPA ####[facility] Szdrdhfcou[address] [place], [place] [address]Dr. Chrissy Frazier Potassium [Moles/Vol] 3.4 mmol/L Critically low 3.5-5.1 [facility] Comment on above: Performed By: #### C MP, LIPA ####[facility] [address]teadikucu[address] [place], [place] [address]Dr. Chrissy Freddie Protein [Mass/Vol] 9.1 g/dL Critically high 6.4-8.2 [facility] Comment on above: Performed By: #### C MP, LIPA ####[facility] [address]av[address] [place], [place] [address]Da. Chrissy Frazier Sodium [Moles/Vol] 135 mmol/L Critically low 136-145 [facility] Comment on above: Performed By: #### C MANA, LIPA ####[facility] [address]orco[address] [place], [place] [address]Zp. Chrissy Frazier Urea nitrogen [Mass/Vol] 19.0 mg/dL Critically high 7.0-18.0 [facility] Comment on above: Performed By: #### C MANA, LIPA ####[facility] [address]xp[address] [place], [place] [address]Wu. Chrissy Frazier Urea nitrogen/Creatinine [Mass ratio] 10.7 mg/mg Normal [facility] Comment on above: Performed By: #### C MANA, OSWALD ####[facility] Aw[address]wvca[address] [place], [place] [address]Aa. Chrissy Frazier BMPon 11-03-2020 Anion gap [Moles/Vol] 14 mmol/L Normal 6-16 [facility] Comment on above: Performed By: #### 2 [id number], [id number], [id number] #### [facility] [address] [place] [address] Calcium [Mass/Vol] 9.0 mg/dL Normal 8.9-11.1 [facility] Comment on above: Performed By: #### 2 [id number], [id number], [id number] #### [facility] [address] [place] [address] Chloride [Moles/Vol] 104 mmol/L Normal 101-111 [facility] Comment on above: Performed By: #### 2 [id number], [id number], [id number] #### [facility] [address] [place] [address] CO2 [Moles/Vol] 21 mmol/L Normal 21-31 [facility] Comment on above: Performed By: #### 2 [id number], [id number], [id number] #### [facility] [address] [place] [address] Creatinine [Mass/Vol] 1.3 mg/dL Normal 0.5-1.3 [facility] Comment on above: Performed By: #### 2 387502, [id number], [id number] #### [facility] [address] [place] [address] Glucose [Mass/Vol] 111 mg/dL Normal 55-199 [facility] Comment on above: Result Comment: If t his glucose result represents a fasting glucose, interpretation should refer to the following reference range: 55-99 mg/dL Performed By: #### 2 [id number], [id number], [id number] #### [facility] [address] [place] [address] Potassium [Moles/Vol] 2.9 mmol/L Low 3.5-5.3 [facility] Comment on above: Performed By: #### 2 204569, [id number], [id number] #### [facility] [address] [place] [address] Sodium [Moles/Vol] 136 mmol/L Normal 135-145 [facility] Comment on above: Performed By: #### 2 284611, [id number], [id number] #### [facility] [address] [place] [address] Urea nitrogen [Mass/Vol] 14 mg/dL Normal 5-21 [facility] Comment on above: Performed By: #### 2 473963, [id number], [id number] #### [facility] [address] [place] [address] Urea nitrogen/Creatinine [Mass ratio] 11 No Units Normal 10-20 [facility] Comment on above: Performed By: #### 2 221284, [id number], [id number] #### [facility] [address] [place] [address] Lipase Levelon 11-03-2020 Lipase [Catalytic activity/Vol] 66 unit/L High 13-58 [facility] Comment on above: Performed By: #### 2 266263, [id number], [id number] #### [facility] [address] [place] [address] Physician Orderon 11-03-2020 Physician Order [id number] 3#1.00CD:127 Normal [facility] eGFRon 11-03-2020 GFR/1.73 sq M predicted among blacks MDRD (S/P/Bld) [Vol rate/Area] mL/min/{1.73_m2} Normal >=59 [facility] Comment on above: Order Comment: Order added by Discern Expert. Result Comment: eGFR is race adjusted. AA=. Performed By: #### 2 628883, [id number], [id number] #### [facility] [address] [place] [address] GFR/1.73 sq M predicted among non-blacks MDRD (S/P/Bld) [Vol rate/Area] mL/min/{1.73_m2} Normal >=59 [facility] Comment on above: Order Comment: Order added by Discern Expert. Result Comment: [employer] Cutter lindsay kidney disease could be indicated at eGFR's of less than 60 mL/min/1.73m2. Kidney failure is indicated at less than 15 mL/min/1.73m2. Performed By: #### 2 935187, [id number], [id number] #### [facility] [address] [place] [address] Encounters Encounter Date Encounter Type Care Provider Facility Start: 03-30-2023 ambulatory Luis Angel valenciaty:[facility] Start: 01-03-2023 End: 01-04-[address] MELODY MARIO . Facility:[facility] Start: 01-03-2023 End: 01-04-2023 ambulatory RAQUEL BANKS Facility:[facility] Start: 12-29-2022 End: 12-30-[address] MELODY MARIO . Facility:[facility] Start: 12-13-2022 End: 12-14-2022 ambulatory [facility] Start: 11-24-2022 End: 11-24-2022 ambulatory [facility] Start: 11-16-2022 End: 11-17-2022 ambulatory [...] Date Payer Category Payer Self-pay 1990 Unknown [id number] 1990 Unknown [id number] 1990 Unknown [id number] .16.84 [id number] 1990 Unknown [id number] .16.84 0.1.104594.3.579.2.593 1990 Unknown [id number] .16.84 0.1.024041.3.579.2.593 1990 Unknown [id number] .16.84 0.1.279581.3.579.2.593 1990 Unknown [id number] 2.16.84 0.1.097598.3.579.2.593 1990 Unknown [id number] 2.16.84 0.1.189634.3.579.2.593 1990 Unknown [id number] 2.16.84 0.1.564401.3.579.2.593 1990 Unknown [id number] 2.16.84 0.1.149181.3.579.2.593 1990 Unknown [id number] 2.16.84 0.1.748011.3.579.2.593 1990 Unknown [id number] 2.16.84 0.1.873730.3.579.2.593 1990 Unknown [id number] 2.16.84 0.1.127605.3.579.2.593 1959 Private Health Insurance [id number] Unknown [id number] 2.16.8 [id number] Progress note 11-24-2022 Note Date & Type [...] report that his father had a fatal CO at the age of 54. Stress test [...] factor modification -Plan (more content not included)... [facility] Progress note 11-24-2022 Note Date & [...] All other systems reviewed and are negative. [facility] Summary Purpose Family History No Family [...] section and content) DATE CREATED AUTHOR 11/04/2020 [facility] DATE CREATED AUTHOR AUTHOR'S ORGANIZ ATION 01/08/2023 [facility] DATE CREATED AUTHOR AUTHOR'S ORGANIZ ATION 02/07/2023 [facility] DATE CREATED AUTHOR AUTHOR'S ORGANIZ ATION 04/01/2023 [facility] FOR RECORDS PERTAINING TO PATIENTS WHO ARE [...] BE BASED ON THE PRIMARY CLINICAL RECORDS. [facility]. provides no warranty or guarantee of the accuracy or completeness of information in this document.
== END 2024-01-12 10:25 | disposition home or self-care (01) ==
LOC: EC 10:24
PROVIDERS: PCP Family Medicine; Visit Provider Physician Assistant
DX: M79.671 Pain in right foot (principal)
CPT/HCPCS: 73630

== ENCOUNTER 2024-02-13 12:59 | Outpatient (OUT) | payer OTHER, SELFPAY ==
--- NOTE | 2024-02-13 13:22 | CT_ITS ---
The [address] [address] Patient Name: PAULINA CHARLES MRN: [id number] date: 1990 Sex: M Assigned Patient Location: CT Current Patient Location: CT Accession/Order Number: [id number] Exam Date: 02/13/2024 13:18 Report Date: 02/13/2024 14:06 At the request of: SHALINI IVAN Procedure: CT foot RT wo con EXAMINATION: CT foot RT wo con HISTORY: Lisfranc Fracture, Midfoot Degenerative Disc Disease COMPARISON: 01/12/2024 TECHNIQUE: Multi-planar CT images were created without IV contrast. Dose reduction techniques were achieved by using automated exposure control and/or adjustment of mA and/or kV according to patient size and/or use of iterative reconstruction technique. FINDINGS: BONES: Mixed lytic and sclerotic appearance identified along the distal dorsal medial navicular and proximal medial cuneiform this is best visualized on sagittal image 65, axial image 120 with the areas of periosteal reaction, this likely represents subacute nondisplaced fractures. No additional fracture or dislocation is identified. Discontinuous cortex along the dorsal calcaneus at the tarsal tunnel, axial image 106, nonspecific. No lateral subluxation of the tarsal bones SOFT TISSUES: Negative. No visible soft tissue swelling. EFFUSION: None visible. OTHER: Negative. CT/CT foot RT wo con IMPRESSION: Subacute nondisplaced fractures along the medial dorsal aspects of the navicular and medial cuneiform No lateral subluxation of the metatarsals in relation to the tarsal bones Electronically authenticated by: RAPHAEL PRIEST Date: 02/13/2024 14:06
== END 2024-02-13 13:00 | disposition home or self-care (01) ==
LOC: CT 13:00
PROVIDERS: PCP Family Medicine; Visit Provider Podiatrist Foot & Ankle Surgery
DX: M19.071 Primary osteoarthritis, right ankle and foot (principal); S92.244A Nondisplaced fracture of medial cuneiform of right foot, initial encounter for closed fracture; S92.254A Nondisplaced fracture of navicular [scaphoid] of right foot, initial encounter for closed fracture
CPT/HCPCS: 73700

== ENCOUNTER 2024-03-09 11:05 | Outpatient (OUT) | payer OTHER, SELFPAY ==
--- OUTSIDE RECORDS SUMMARY | 2024-03-09 11:11 | XMS_ITS | CCD ---
Author Organization [facility] Care Team Providers Care Phlebotomy Instructor Name Role Phone DARREN MOHAMAD Referring Unavailable ALGHOTHANI, MOHAMAD Attending Unavailable HOY ., DR OLIVER Consulting Unavailable HOY ., DR OLIVER Attending Unavailable HOY ., DR OLIVER Admitting Unavailable HOY ., DR OLIVER Primary Care Unavailable HAY ., DR PIMENTEL Consulting Unavailable HOY ., DR OLIVER Consulting Unavailable HOY ., DR OLIVER Attending Unavailable HOY ., DR OLIVER Admitting Unavailable HOY ., DR OLIVER Primary Care Unavailable BEAECK, DR CHARISSA Buckley Consulting Unavailabl e HOY [...] Primary Care Unavailable ODELL OCAMPO Consulting Unavailable CHEYRL .DELORES Attending Unavailable CHERYL ., DELORES Admitting Unavailable HOY ., DR OLIVER Primary Care Unavailable CHERYL .DELORES Consulting Unavailable HAY ., DR PIMENTEL Consulting Unavailable HAY ., DR PIMENTEL Attending Unavailable HAY ., DR PIMENTEL Admitting Unavailable HOY ., DR OLIVER Primary Care Unavailable SHYANN CM Consulting Unavailable ALGHOTHANI, MOHAMAD Consulting Unavailable HOY ., DR OLIVER Primary Care Unavailable ALGHOTHCARLOS, MOHAMAD Attending Unavailable ALGHOTHANI, MOHAMAD Admitting Unavailable HOY ., DR OLIVER Consulting [...] Unavailable HOY ., DR OLIVER Admitting Unavailable [place], DR RAPHAEL Lemon Consulting Unavailable Troy Michaels Consulting Unavailable HOY ., DR OLIVER Consulting Unavailable HOY ., DR OLIVER Attending Unavailable HOY ., DR OLIVER Admitting Unavailable HOY ., DR OLIVER Primary Care Unavailable LUISA, DR CHARISSA Buckley Consulting Unavailjeannine LEACH, DR CASSIA Del Angel Consulting Unavailable DARRELL TOLEDO Consulting Unavailable KAYDEN BRANTLEY Consulting Unavailable Luis Angel Bentley Attending UnavailLuis Angel Conway Admitting UnavailMelody Benitez Primary Care Unavailable TUNG MCCOY Attending Unavailable Allergies Allergy Classification Reported Allergen(s) Allergy Type Date of Onset Reaction(s) Facility (3 sources) Penicillins; Translations: [PENICILLINS] Propensity to adverse reactions to drug (disorder) 09-28-20 [facility] Repository (1 source) Sulfamethoxazole / Trimethoprim; Translations: [SULFAMETHOXAZOLE-TR IMETHOPRIM] Drug Allergy 01-27-20 [facility] Repository (1 source) Clarithromycin Drug Allergy [facility] Repository (1 source) Sulfamethoxazole / Trimethoprim Drug Allergy 05-27-20 17 [facility] Repository (1 source) Sulfamethoxazole Drug [...] Major depressive disorder, single episode, unspecified; Translations: [MSISAEL DEPRESS D/O SINGLE EPIS UNS] Onset: 10-24-2022 Chronic Nausea and vomiting (7 sources) Vomiting, unspecified; Translations: [Nausea with vomiting, unspecified] Onset: 07-07-2022 Episodic Nonspecific chest pain (9 sources) Chest pain, unspecified; Translations: [Other chest pain] Onset: 11-16-2022 Episodic Other aftercare (1 source) Other half-way (current) drug therapy; Translations: [OTH CORRECTION CURRENT DRUG THERAPY] Onset: 02-07-2023 Episodic Other [...] Range Facil ity H PYLORI ANTIBODY IGGon 12-22 H. PYLORI IGG ABS 0.09 Index Value Normal 0.00-0.79 [facility] Comment on above: Result Comment: Nega tive <0.80 Equivocal 0.80 - 0.89 Positive >0.89 Performed By: #### H PYLLC ####[facility] Hmaesgmfht[address] [place], [place] [address]Dr. Chrissy Frazier AMYLASEon 01-04-2023 Amylase [Catalytic activity/Vol] 34 U/L Normal 25-115 [facility] Comment on above: Performed By: #### A MY ####[facility] Rzxixsfqaw[address] [place], [place] [address]Dr. Chrissy Frazier CBC AUTO DIFFon 01-04-2023 BASO # 0.0 103/ul Normal 0.0-0.1 [facility] Comment on above: Performed By: #### C BC ####[facility] Wwucrnqngt5[address] [place], [place] [address]Dr. Chrissy Frazier Basophils/100 WBC (Bld) 0.1 % Critically low 0.2-2.0 [facility] Comment on above: Performed By: #### C BC ####[facility] Umejexlybn46[address] [place], [place] [address]Dr. Chrissy Frazier EO # 0.0 103/ul Normal 0.0-0.7 [facility] Comment on above: Performed By: #### C BC ####[facility] Feghdclwdb730[address] [place], [place] [address]Dr. Chrissy Frazier Eosinophils/100 WBC (Bld) 0.1 % Critically low 0.9-7.0 [facility] Comment on above: Performed By: #### C BC ####[facility] Tfbtmnavob8[address] [place], [place] [address]Dr. Chrissy Frazier Erythrocyte distribution width (RBC) [Ratio] 14.0 % Normal 11.0-15.0 [facility] Comment on above: Performed By: #### C BC ####[facility] Waibxmrncs356[address] [place], [place] [address]Dr. Chrissy Frazier Hematocrit (Bld) [Volume fraction] 40.4 % Critically low 42.0-54.0 [facility] Comment on above: Performed By: #### C BC ####[facility] [address]jlcivi[address] [place] [id number]. Chrissy Frazier Hemoglobin (Bld) [Mass/Vol] 13.8 g/dL Critically low 14.0-18.0 [facility] Comment on above: Performed By: #### C BC ####[facility] Duixzkwqmq70[address] [place] [id number]. Chrissy Frazier IG # 0.05 10e3/ul Critically high 0.00-0.03 [facility] Comment on above: Performed By: #### C BC ####[facility] Fptxcfeuqt7138 [place] [id number]. Chrissy Frazier IG % 0.3 % Normal 0.0-0.5 [facility] Comment on above: Performed By: #### C BC ####[facility] Hhwkikmawc7037 [place] [address]Dr. Chrissy Frazier LYMPH # 1.7 103/ul Normal 1.2-3.8 [facility] Comment on above: Performed By: #### C BC ####[facility] Zcdkiyoaos3315 [place] [id number]. Chrissy Frazier Lymphocytes/100 WBC (Bld) 11.9 % Critically low 20.5-60.0 [facility] Comment on above: Performed By: #### C BC ####[facility] Vklssykiza2543 [place] [id number]. Chrissy Frazier MANUAL DIFF REQ NO Normal [facility] Comment on above: Performed By: #### C BC ####[facility] Vvxkdgtjxw0635 [place] [phone]. Chrissy Frazier MCH (RBC) [Entitic mass] 29.3 pg Normal 25.9-34.0 [facility] Comment on above: Performed By: #### C BC ####[facility] Tvuogplldl3786 [place] [phone]. Chrissy Frazier MCHC (RBC) [Mass/Vol] 34.2 g/dL Normal 29.9-35.2 [facility] Comment on above: Performed By: #### C BC ####[facility] Ampnmfteyw9065 [place] [phone]. Chrissy Frazier MCV (RBC) [Entitic vol] 85.8 fL Normal 80.0-94.0 [facility] Comment on above: Performed By: #### C BC ####[facility] Tpidaezoty5833 [place] [phone]. Chrissy Frazier MONO # 0.6 103/ul Normal 0.3-0.8 [facility] Comment on above: Performed By: #### C BC ####[facility] Ygugbgdllr1339 [place] [phone]. Chrissy Frazier Monocytes/100 WBC (Bld) 4.2 % Normal 1.7-12.0 [facility] Comment on above: Performed By: #### C BC ####[facility] Qnfnrmjdld86[address] [place], [place] [address]Dr. Chrissy Frazier NEUT # 12.0 103/ul Critically high 1.4-6.5 [facility] Comment on above: Performed By: #### C BC ####[facility] Pxhjdpaofa[address] [place], [place] [id number]. Chrissy Frazier Neutrophils/100 WBC (Bld) 83.4 % Critically high 43.0-75.0 [facility] Comment on above: Performed By: #### C BC ####[facility] Tigquevzkr5136[address] [place], [place] [phone]. Chrissy Frazier Platelet mean volume (Bld) [Entitic vol] 10.4 fL Normal 9.5-13.5 [facility] Comment on above: Performed By: #### C BC ####[facility] Etlbdqyyvu189[address] [place], [place] [phone]. Chrissy Frazier PLT 313 103/ul Normal 150-450 [facility] Comment on above: Performed By: #### C BC ####[facility] Bmbzjnuhih64[address] [place], [place] [phone]. Chrissy Freddie RBC 4.71 106/ul Normal 4.70-6.10 [facility] Comment on above: Performed By: #### C BC ####[facility] Tpgikzbggz2375 [place] [phone]. Tishrowan Freddie WBC 14.4 103/ul Critically high 4.0-11.0 [facility] Comment on above: Performed By: #### C BC ####[facility] Afhtdoglui2600 [place] [phone]. Tishrowan Frazier CULTURE URINEon 01-04-2023 CULTURE URINE Culture Observations: NO GROWTH. Normal [facility] Comment on above: Performed By: #### U RCX ####[facility] O[address]oucfjiz60[address] [place] [address]Dr. Chrissy Frazier DRUG SCREEN RAPID (URINE)on 01-04-2023 AMP Negative Normal NEGATIVE [facility] Comment on above: Performed By: #### D REYES UAMIC ####[facility] Fqiikvfcrz7185 [place] [address]Dr. Chrissy Frazier BAR Negative Normal NEGATIVE [facility] Comment on above: Performed By: #### D REYES UAMIC ####[facility] Otligbnunp[address] [place], [place] [address]Dr. Chrissy Frazier BUP Negative Normal NEGATIVE [facility] Comment on above: Performed By: #### D REYES, UAMIC ####[facility] Veawvyespt6882 [place] [address]Dr. Chrissy Frazier BZO Positive Abnormal NEGATIVE [facility] Comment on above: Performed By: #### Amelie CHAMBERS UAMIC ####[facility] Zjphitxjzc0939 [place] [address]Dr. Chrissy Frazier LAUREN Negative Normal NEGATIVE [facility] Comment on above: Performed By: #### D REYES UAMIC ####[facility] Eucrvlvtrr0733 [place] [address]Dr. Chrissy Frazier CUT-OFFS SEE BELOW Normal [facility] Comment on above: Result Comment: AMP [...] ng/mL Performed By: #### Amelie CHAMBERS UAMIC ####[facility] Mrogyshfht[address] [place], [place] [address]Dr. [facility] DRUG CUT HEADER DRUG CLASS TEST SYSTEM CUT-OFF CONCENTRATIONS ARE FOLLOWS: Normal [facility] Comment on above: Performed By: #### Amelie CHAMBERS UAMIC ####[facility] Ihipuylhnc8[address] [place], [place] [address]Dr. Chrissy Frazier mAMP Negative Normal NEGATIVE [facility] Comment on above: Performed By: #### Amelie CHAMBERS UAMIC ####[facility] Rhlzrmriyh14[address] [place], [place] [address]Dr. Chrissy [facility] MTD Negative Normal NEGATIVE [facility] Comment on above: Performed By: #### Amelie CHAMBERS UAMIC ####[facility] Uhjumnlsss35[address] [place], [place] [address]Dr. Chrissy [facility] OPI Negative Normal NEGATIVE [facility] Comment on above: Performed By: #### Amelie CHAMBERS, UAMIC ####[facility] Cveyempjkn1801[address] [place], [place] [address]Dr. Chrissy [facility] OXY Negative Normal NEGATIVE [facility] Comment on above: Performed By: #### Amelie CHAMBERS, UAMIC ####[facility] Lzyysxvnxs0901[address] [place], [place] [address]Dr. [facility] PCP Negative Normal NEGATIVE [facility] Comment on above: Performed By: #### Amelie CHAMBERS, UAMIC ####[facility] Duemcoqxsk52[address] [place], [place] [address]Dr. [facility] Negative Normal NEGATIVE [facility] Comment on above: Performed By: #### Amelie CHAMBERS, UAMIC ####[facility] Wlzrxzzdfk23[address] [place] [address]Dr. Chrissy Frazier TCA Positive Abnormal NEGATIVE [facility] Comment on above: Performed By: #### D REYES UAMIC ####[facility] Jdnfwpxqdr5443 [place] [address]Dr. Chrissy Frazier THC Positive Abnormal NEGATIVE [facility] Comment on above: Performed By: #### D REYES UAMIC ####[facility] Tashmjmlqj8517 [place] [address]Dr. Chrissy Frazier LIPASEon 01-04-2023 Lipase [Catalytic activity/Vol] 57.0 U/L Critically low 73.0-393.0 [facility] Comment on above: Performed By: #### L IPA ####[facility] Vexwklhrtq[address] [place], [place] [address]Dr. Chrissy Frazier PROF 14(COMP METB)on 023 Albumin [Mass/Vol] 3.6 g/dL Normal 3.4-5.0 [facility] Comment on above: Performed By: #### C MP ####[facility] Uufzvbceow875[address] [place], [place] [address]Dr. Chrissy Frazier Albumin/Globulin [Mass ratio] 1.0 {ratio} Normal [facility] Comment on above: Performed By: #### C MP ####[facility] Dxgoxxkebi360[address] [place], [place] [address]Dr. Chrissy Frazier ALP [Catalytic activity/Vol] 67 U/L Normal 46-116 [facility] Comment on above: Performed By: #### C MP ####[facility] Judfwmgvtg14216[address] [place], [place] [address]Dr. Chrissy Frazier ALT [Catalytic activity/Vol] 26 U/L Normal 16-63 [facility] Comment on above: Performed By: #### C MP ####[facility] Xhhufrbbbn065[address] [place], [place] [address]Dr. Chrissy Frazier Anion gap [Moles/Vol] 16.3 mmol/L Normal [facility] Comment on above: Performed By: #### C MP ####[facility] Nfykmsdmtf9394 [place] [address]Dr. Chrissy Frazier AST [Catalytic activity/Vol] 17 U/L Normal 15-37 [facility] Comment on above: Performed By: #### C MP ####[facility] Zpcqosfssi89[address] [place], [place] [address]Dr. Chrissy Frazier Bilirubin [Mass/Vol] 0.4 mg/dL Normal 0.2-1.0 [facility] Comment on above: Performed By: #### C MP ####[facility] Jnhlwheofo264[address] [place], [place] [address]Dr. Chrissy Frazier Calcium [Mass/Vol] 8.7 mg/dL Normal 8.5-10.1 [facility] Comment on above: Performed By: #### C MP ####[facility] Tlbvotwrrb139[address] [place], [place] [address]Dr. Chrissy Frazier Chloride [Moles/Vol] 106 mmol/L Normal 98-107 [facility] Comment on above: Performed By: #### C MP ####[facility] Punikzsooh3875[address] [place], [place] [address]Dr. Chrissy Frazier CO2 [Moles/Vol] 22.6 mmol/L Normal 21.0-32.0 [facility] Comment on above: Performed By: #### C MP ####[facility] Oeccisvzac[address] [place], [place] [address]Dr. Chrissy Frazier Creatinine [Mass/Vol] 0.99 mg/dL Normal 0.70-1.30 [facility] Comment on above: Performed By: #### C MP ####[facility] Rvsxhxkacf4713[address] [place], [place] [address]Dr. Chrissy Freddie EGFR-AF WELSH >60 Normal >=60 [facility] Comment on above: Performed By: #### C MP ####[facility] Zcmsmaasnq7960[address] [place], [place] [address]Dr. Tishrowan Freddie EGFR-NON AF WELSH >60 Normal >=60 [facility] Comment on above: Performed By: #### C MP ####[facility] Tepojrkuiq36[address] [place], [place] [address]Dr. Chrissy Frazier Globulin (S) [Mass/Vol] 3.6 g/dL Normal [facility] Comment on above: Performed By: #### C MP ####[facility] Dolauloyrv16[address] [place], [place] [address]Dr. Chrissy Frazier Glucose [Mass/Vol] 138 mg/dL Critically high 74-106 [facility] Comment on above: Performed By: #### C MP ####[facility] Mcgnwxnokv497[address] [place], [place] [address]Dr. Chrissy Frazier Potassium [Moles/Vol] 3.9 mmol/L Normal 3.5-5.1 [facility] Comment on above: Performed By: #### C MP ####[facility] Lnskycehft9218[address] [place], [place] [address]Dr. Chrissy Frazier Protein [Mass/Vol] 7.2 g/dL Normal 6.4-8.2 [facility] Comment on above: Performed By: #### C MP ####[facility] Cysfgcwejm9932[address] [place], [place] [address]Dr. Chrissy Frazier Sodium [Moles/Vol] 141 mmol/L Normal 136-145 [facility] Comment on above: Performed By: #### C MP ####[facility] Jfbuscehpo84[address] [place], [place] [address]Dr. Chrissy Frazier Urea nitrogen [Mass/Vol] 10.0 mg/dL Normal 7.0-18.0 [facility] Comment on above: Performed By: #### C MP ####[facility] Ntqbgyetfj36[address] [place], [place] [address]Dr. Chrissy Frazier Urea nitrogen/Creatinine [Mass ratio] 10.1 mg/mg Normal [facility] Comment on above: Performed By: #### C MP ####[facility] Ftxozizqcz[address] [place], [place] [address]Dr. Chrissy Frazier UA RANDOM W/MICROSCOPICon BACTERIA TRACE Abnormal NONE SEEN [facility] Comment on above: Performed By: #### D RUGRPD, UAMIC ####[facility] Fldjuoeody6[address] [place], [place] [address]Dr. Chrissy Frazier Bilirubin Ql (U) Negative Normal NEGATIVE [facility] Comment on above: Performed By: #### Amelie LARKIND, UAMIC ####[facility] Spdjhlzazc1437 [place] [address]Dr. Chrissy Frazier CAST NONE SEEN Normal NONE SEEN [facility] Comment on above: Performed By: #### Amelie LARKIND, UAMIC ####[facility] Yzxaxadyaj4507 [place] [address]Dr. Chrissy Frazier Clarity (U) CLEAR Normal CLEAR [facility] Comment on above: Performed By: #### Amelie CHAMBERS, UAMIC ####[facility] Znsqlgpxnr374[address] [place], [place] [address]Dr. Chrissy Frazier Color (U) YELLOW Normal YELLOW [facility] Comment on above: Performed By: #### D REYES, UAMIC ####[facility] Fmmijqsdtm[address] [place], [place] [address]Dr. Chrissy Frazier Crystals LM Nom (Urine sed) NONE SEEN Normal NONE SEEN [facility] Comment on above: Performed By: #### Amelie CHAMBERS, UAMIC ####[facility] Wvkxygbjnp06[address] [place], [place] [address]Dr. Chrissy Frazier Epithelial cells LM Ql (Urine sed) NONE SEEN Normal NONE SEEN /RARE [facility] Comment on above: Performed By: #### Amelie CHAMBERS, UAMIC ####[facility] Lngydbhukd[address] [place], [place] [address]Dr. Chrissy Frazier Glucose Ql (U) Negative Normal NEGATIVE [facility] Comment on above: Performed By: #### Amelie CHAMBERS, UAMIC ####[facility] Mhdtcpzfiq1099 [place] [address]Dr. Chrissy Frazier Hemoglobin Ql (U) Negative Normal NEGATIVE [facility] Comment on above: Performed By: #### Amelie CHAMBERS, UAMIC ####[facility] Nnjkqgzhlk[address] [place], [place] [address]Dr. Chrissy Frazier Ketones Ql (U) 15 mg/dl Abnormal NEGATIVE [facility] Comment on above: Performed By: #### Amelie CHAMBERS, UAMIC ####[facility] Sfydyohasc0179 [place] [address]Dr. Chrissy Freddie LEUKOCYTES Negative Normal NEGATIVE [facility] Comment on above: Performed By: #### Amelie CHAMBERS UAMIC ####[facility] Rvnksqlcea0841 [place] [address]Dr. Chrissy Frazier MUCOUS NONE SEEN Normal NONE SEEN [facility] Comment on above: Performed By: #### Amelie CHAMBERS UAMIC ####[facility] Dwbnywcntg4687 [place] [address]Dr. Chrissy Frazier Nitrite Ql (U) Negative Normal NEGATIVE [facility] Comment on above: Performed By: #### Amelie CHAMBERS UAMIC ####[facility] Jsctprtqmc3153 [place] [address]Dr. Chrissy Frazier pH (U) 6.5 [pH] Normal 5-9 [facility] Comment on above: Performed By: #### Amelie CHAMBERS UAMIC ####[facility] Wufkhyfzov8099 [place] [address]Dr. Chrissy Freddie RBC NONE SEEN Abnormal 0-2 [facility] Comment on above: Performed By: #### Amelie CHAMBERS UAMIC ####[facility] Ynajdcgtvo144[address] [place], [place] [address]Dr. Tishrowan Frazier SPEC GRAVITY 1.020 Normal 1.005-<=1.025 [facility] Comment on above: Performed By: #### Amelie CHAMBERS UAMIC ####[facility] Tplefimuhp[address] [place] [address]Dr. Chrissy Freddie UA PROTEIN Negative Normal NEGATIVE/ TRACE [facility] Comment on above: Performed By: #### Amelie CHAMBERS UAMIC ####[facility] Wkskedixcv3803 [place] [address]Dr. Chrissy Frazier Urobilinogen Qn (U) 0.2 {Estrellita'U}/dL Normal 0.2 - 1. 0 [facility] Comment on above: Performed By: #### Amelie CHAMBERS UAMIC ####[facility] Incfvhwprm624[address] [place], [place] [address]Dr. Chrissy Frazier WBC NONE SEEN Normal NONE SEEN [facility] Comment on above: Performed By: #### D RUGRPD, UAMIC ####[facility] Tfrzooswws6[address] [place] [address]Dr. Chrissy Frazier AMMONIAon 01-03-2023 Ammonia (P) [Moles/Vol] 17 umol/L Normal 11-32 [facility] Comment on above: Performed By: #### A MM ####[facility] Puuqlazrlq032[address] [place] [address]Dr. Chrissy Frazier AMYLASEon 01-03-2023 Amylase [Catalytic activity/Vol] 38 U/L Normal 25-115 [facility] Comment on above: Performed By: #### L IPA, TERRENCE, CMP, MG ####[facility] Abadvnacmi224[address] [place] [address]Dr. Chrissy Frazier CBC AUTO DIFFon 01-03-2023 BASO # 0.1 103/ul Normal 0.0-0.1 [facility] Comment on above: Performed By: #### C BC ####[facility] Ehjslrtqtp5914 [place] [address]Dr. Chrissy Frazier Basophils/100 WBC (Bld) 0.4 % Normal 0.2-2.0 [facility] Comment on above: Performed By: #### C BC ####[facility] Xbvykhnvec1633 [place] [address]Dr. Chrissy Frazier EO # 0.1 103/ul Normal 0.0-0.7 [facility] Comment on above: Performed By: #### C BC ####[facility] Gkeigmqhcu[address] [place], [place] [address]Dr. Chrissy Frazier Eosinophils/100 WBC (Bld) 0.3 % Critically low 0.9-7.0 [facility] Comment on above: Performed By: #### C BC ####[facility] Cvexwmyusq2136 [place] [address]Dr. Chrissy Frazier Erythrocyte distribution width (RBC) [Ratio] 13.7 % Normal 11.0-15.0 [facility] Comment on above: Performed By: #### C BC ####[facility] Gxaqbyudbf7632 [place] [address]Dr. Chrissy Frazier Hematocrit (Bld) [Volume fraction] 46.1 % Normal 42.0-54.0 [facility] Comment on above: Performed By: #### C BC ####[facility] Qmdewdeszg3093 [place] [id number]. Chrissy Frazier Hemoglobin (Bld) [Mass/Vol] 15.4 g/dL Normal 14.0-18.0 [facility] Comment on above: Performed By: #### C BC ####[facility] Kzkbwsyhee14[address] [place], [place] [address]Dr. Chrissy Frazier IG # 0.11 10e3/ul Critically high 0.00-0.03 [facility] Comment on above: Performed By: #### C BC ####[facility] Zxpiqsywwk08[address] [place], [place] [address]Dr. Chrissy Freddie IG % 0.6 % Critically high 0.0-0.5 [facility] Comment on above: Performed By: #### C BC ####[facility] Zzitlomolm[address] [place], [place] [address]Dr. Chrissy Frazier LYMPH # 2.5 103/ul Normal 1.2-3.8 [facility] Comment on above: Performed By: #### C BC ####[facility] Dnbtetxvqe29[address] [place], [place] [address]Dr. Chrissy Freddie Lymphocytes/100 WBC (Bld) 13.9 % Critically low 20.5-60.0 [facility] Comment on above: Performed By: #### C BC ####[facility] Fsveulttjg524[address] [place], [place] [address]Dr. Chrissy Frazier MANUAL DIFF REQ NO Normal [facility] Comment on above: Performed By: #### C BC ####[facility] Bbxelqwvqo36[address] [place], [place] [address]Dr. hCrissy Frazier MCH (RBC) [Entitic mass] 28.6 pg Normal 25.9-34.0 [facility] Comment on above: Performed By: #### C BC ####[facility] Xxxolrguxs9149 [place] [id number]. Chrissy Freddie MCHC (RBC) [Mass/Vol] 33.4 g/dL Normal 29.9-35.2 [facility] Comment on above: Performed By: #### C BC ####[facility] Szfjzogfgj8451 [place] [phone]. Chrissy Frazier MCV (RBC) [Entitic vol] 85.7 fL Normal 80.0-94.0 [facility] Comment on above: Performed By: #### C BC ####[facility] Mrqzvpsqmx[address] [place], [place] [address]Dr. Chrissy Frazier MONO # 0.7 103/ul Normal 0.3-0.8 [facility] Comment on above: Performed By: #### C BC ####[facility] Eytcsnkine394[address] [place], [place] [address]Dr. Chrissy Frazier Monocytes/100 WBC (Bld) 4.0 % Normal 1.7-12.0 [facility] Comment on above: Performed By: #### C BC ####[facility] Uesvajnaqq[address] [place], [place] [address]Dr. Chrissy Frazier NEUT # 14.3 103/ul Critically high 1.4-6.5 [facility] Comment on above: Performed By: #### C BC ####[facility] Bqoitdxqoh9[address] [place], [place] [address]Dr. Chrissy Frazier Neutrophils/100 WBC (Bld) 80.8 % Critically high 43.0-75.0 [facility] Comment on above: Performed By: #### C BC ####[facility] Fdfffgpaor[address] [place], [place] [address]Dr. Chrissy rFazier Platelet mean volume (Bld) [Entitic vol] 10.4 fL Normal 9.5-13.5 [facility] Comment on above: Performed By: #### C BC ####[facility] Ixanxoexpt[address] [place], [place] [id number]. Chrissy Frazier PLT 437 103/ul Normal 150-450 [facility] Comment on above: Performed By: #### C BC ####[facility] Kbovyytyjv[address] [place] [address]Dr. Chrissy Frazier RBC 5.38 106/ul Normal 4.70-6.10 [facility] Comment on above: Performed By: #### C BC ####[facility] Tmhxgxphke[address] [place] [address]Dr. Chrissy Frazier WBC 17.7 103/ul Critically high 4.0-11.0 [facility] Comment on above: Performed By: #### C BC ####[facility] Vexrwxkcep7[address] [place] [address]Dr. Chrissy Frazier CULTURE BLOODon 01-03-2023 Microscopic examination of blood, culture Culture Observations: NO GROWTH AT 5 DAYS. Normal [facility] Comment on above: Performed By: #### B LDCX1 ####[facility] Ktcnqhkvnc[address] [place], [place] [address]Dr. Chrissy Frazier Performed By: #### B LDCX2 ####[facility] Dcgwxlncgn98[address] [place], [place] [address]Dr. Chrissy Frazier ECHOCARDIO M/2D COMPLETEon 0 01-03-2023 ECHOCARDIO M/2D COMPLETE Normal [facility] LACTATE/LACTIC ACIDon 2022 Lactate [Moles/Vol] 2.7 mmol/L Critically high 0.4-1.9 [facility] Comment on above: Performed By: #### L ACT ####[facility] Kiavniajvc[address] [place], [place] [address]Dr. Chrissy Frazier Lactate [Moles/Vol] 6.3 mmol/L Critically high 0.4-1.9 [facility] Comment on above: Performed By: #### L ACT ####[facility] Gxlawsjzqn26[address] [place], [place] [address]Dr. Chrissy Frazier LIPASEon 01-03-2023 Lipase [Catalytic activity/Vol] 74.0 U/L Normal 73.0-393.0 [facility] Comment on above: Performed By: #### L IPA, TERRENCE, CMP, MG ####[facility] Vnfqlddhkl[address] [place] [address]Dr. Chrissy Frazier MAGNESIUMon 01-03-2023 Magnesium [Mass/Vol] 1.6 mg/dL Critically low 1.8-2.4 [facility] Comment on above: Performed By: #### L IPA, TERRENCE, CMP, MG ####[facility] Dcmteatwuc37[address] [place] [address]Dr. Chrissy Frazier PROF 14(COMP METB)on 023 Albumin [Mass/Vol] 4.3 g/dL Normal 3.4-5.0 [facility] Comment on above: Performed By: #### L IPA, TERRENCE, CMP, MG ####[facility] Cevkqdwinw299[address] [place] [address]Dr. Chrissy Frazier Albumin/Globulin [Mass ratio] 1.1 {ratio} Normal [facility] Comment on above: Performed By: #### L IPA, TERRENCE, CMP, MG ####[facility] Gqoqvdgrrs4578 [place] [address]Dr. Chrissy Frazier ALP [Catalytic activity/Vol] 87 U/L Normal 46-116 [facility] Comment on above: Performed By: #### L IPA, TERRENCE, CMP, MG ####[facility] Ukmqyaxqff0448 [place] [address]Dr. Chrissy Frazier ALT [Catalytic activity/Vol] 32 U/L Normal 16-63 [facility] Comment on above: Performed By: #### L IPA, TERRENCE, CMP, MG ####[facility] Tszjokvpdg2642 [place] [address]Dr. Chrissy Frazier Anion gap [Moles/Vol] 24.0 mmol/L Normal [facility] Comment on above: Performed By: #### L IPA, TERRENCE, CMP, MG ####[facility] Bajqroslbz6929 [place] [address]Dr. Chrissy Frazier AST [Catalytic activity/Vol] 22 U/L Normal 15-37 [facility] Comment on above: Performed By: #### L IPA, TERRENCE, CMP, MG ####[facility] Fjncnjlmmw9174 [place] [address]Dr. Chrissy Frazier Bilirubin [Mass/Vol] 0.6 mg/dL Normal 0.2-1.0 [facility] Comment on above: Performed By: #### L IPA, TERRENCE, CMP, MG ####[facility] Ltdvllwhni7007 [place] [address]Dr. Chrissy Frazier Calcium [Mass/Vol] 9.6 mg/dL Normal 8.5-10.1 [facility] Comment on above: Performed By: #### L IPA, TERRENCE, CMP, MG ####[facility] Lspljkqbxe8260 [place] [address]Dr. Chrissy Frazier Chloride [Moles/Vol] 103 mmol/L Normal 98-107 [facility] Comment on above: Performed By: #### L IPA, TERRENCE, CMP, MG ####[facility] Eazdxlasiu1639 [place] [address]Dr. Chrissy Frazier CO2 [Moles/Vol] 16.7 mmol/L Critically low 21.0-32.0 [facility] Comment on above: Performed By: #### L IPA, TERRENCE, CMP, MG ####[facility] Qhxbaapfnf685[address] [place], [place] [address]Dr. Chrissy Frazier Creatinine [Mass/Vol] 1.42 mg/dL Critically high 0.70-1.30 [facility] Comment on above: Performed By: #### L IPA, TERRENCE, CMP, MG ####[facility] Mzstvgwvbb8133 [place] [address]Dr. Chrissy Frazier EGFR-AF WELSH >60 Normal >=60 [facility] Comment on above: Performed By: #### L IPA, TERRENCE, CMP, MG ####[facility] Ybteojoykr9397 [place] [address]Dr. Chrissy Frazier EGFR-NON AF WELSH 58 mL/min/1.73m2 Critically low >=60 [facility] Comment on above: Performed By: #### L IPA, TERRENCE, CMP, MG ####[facility] Hmmfoiahbc1937 [place] [address]Dr. Chrissy Frazier Globulin (S) [Mass/Vol] 4.0 g/dL Normal [facility] Comment on above: Performed By: #### L IPA, TERRENCE, CMP, MG ####[facility] Cpsdcnqutf3437 [place] [address]Dr. Chrissy Frazier Glucose [Mass/Vol] 149 mg/dL Critically high 74-106 [facility] Comment on above: Performed By: #### L IPA, TERRENCE, CMP, MG ####[facility] Ofzdqoclpi5195 [place] [address]Dr. Chrissy Frazier Potassium [Moles/Vol] 3.7 mmol/L Normal 3.5-5.1 [facility] Comment on above: Performed By: #### L IPA, TERRENCE, CMP, MG ####[facility] Mbxdhadiyb0217 [place] [address]Dr. Chrissy Frazier Protein [Mass/Vol] 8.3 g/dL Critically high 6.4-8.2 [facility] Comment on above: Performed By: #### L IPA, TERRENCE, CMP, MG ####[facility] Etdhbhwjjh3781 [place] [address]Dr. Chrissy Frazier Sodium [Moles/Vol] 140 mmol/L Normal 136-145 [facility] Comment on above: Performed By: #### L IPA, TERRENCE, CMP, MG ####[facility] Ykaokremex4454 [place] [address]Dr. Chrissy Frazier Urea nitrogen [Mass/Vol] 16.0 mg/dL Normal 7.0-18.0 [facility] Comment on above: Performed By: #### L IPA, TERRENCE, CMP, MG ####[facility] Bjskpehbsk3955 [place] [address]Dr. Chrissy Frazier Urea nitrogen/Creatinine [Mass ratio] 11.3 mg/mg Normal [facility] Comment on above: Performed By: #### L IPA, TERRENCE, CMP, MG ####[facility] Apavsxvmvg0452 [place] [address]Dr. Chrissy Frazier SED RATE [facility] 2022 SED RATE 37 mm/hr Critically high <=15 [facility] Comment on above: Performed By: #### S EDR ####[facility] Hqrizvqxkl6122 [place], [place] [address]Ry. Chrissy Frazier XR ABD FLAT UP_PA Enoch 01-03 XR ABD FLAT UP_PA CH Normal [facility] CT HEART CORONARY ANGIOGRAMo n 12-13-2022 [...] CT examination Electronically signed: Maikel Chappell. Normal [facility] Office Visiton 11-24-2022 Follow-up visit [id number] Paulina Montero 1990 M Date Provider Department Center 11/24/2022 3848-RAQUEL BANKS [facility] Family History Problem Relation Age of Onset Coronary artery disease Father Heart attack Father 54 Family Status - Relation Status Age at Father Level of Service:35321 [place] OFFICE/OUTPATIENT NEW MODERATE MDM 45-59 MINUTES Reason for Visit and Comments: abnormal stress test [Other] Normal [facility] CARDIAC STRESS TESTon 2021 CARDIAC STRESS TEST Normal [facility] AMYLASEon 10-24-2022 Amylase [Catalytic activity/Vol] 26 U/L Normal 25-115 [facility] Comment on above: Performed By: #### C MP, LIPA, TERRENCE ####[facility] Wvyqytybuj5527 [place] [id number] Frazier CBC AUTO DIFFon 10-24-2022 BASO # 0.0 103/ul Normal 0.0-0.1 [facility] Comment on above: Performed By: #### C BC ####[facility] Kkklekihcy9960 [place] [phone]. Chrissy Frazier Basophils/100 WBC (Bld) 0.2 % Normal 0.2-2.0 [facility] Comment on above: Performed By: #### C BC ####[facility] Ocazghblle8259 [place] [address]Dr. Chrissy Frazier EO # 0.1 103/ul Normal 0.0-0.7 [facility] Comment on above: Performed By: #### C BC ####[facility] Nojmwaspgt75[address] [place], [place] [address]Dr. Chrissy Frazier Eosinophils/100 WBC (Bld) 0.4 % Critically low 0.9-7.0 [facility] Comment on above: Performed By: #### C BC ####[facility] Fxtxtgteaa[address] [place], [place] [address]Dr. Chrissy Frazier Erythrocyte distribution width (RBC) [Ratio] 14.6 % Normal 11.0-15.0 [facility] Comment on above: Performed By: #### C BC ####[facility] Ebnashtwya54[address] [place], [place] [address]Dr. Chrissy Frazier Hematocrit (Bld) [Volume fraction] 39.4 % Critically low 42.0-54.0 [facility] Comment on above: Performed By: #### C BC ####[facility] Kvadtztnyw[address] [place], [place] [address]Dr. Chrissy Frazier Hemoglobin (Bld) [Mass/Vol] 13.2 g/dL Critically low 14.0-18.0 [facility] Comment on above: Performed By: #### C BC ####[facility] Jwubmbicwr7[address] [place], [place] [address]Dr. Chrissy Frazier IG # 0.07 10e3/ul Critically high 0.00-0.03 [facility] Comment on above: Performed By: #### C BC ####[facility] Qiwbkhodkv[address] [place], [place] [address]Dr. Chrissy Frazier IG % 0.5 % Normal 0.0-0.5 [facility] Comment on above: Performed By: #### C BC ####[facility] Znseavgiqe2753 [place] [phone]. Chrissy Freddie LYMPH # 3.7 103/ul Normal 1.2-3.8 [facility] Comment on above: Performed By: #### C BC ####[facility] Kuqxzytyul6208 [place] [id number]. Tishrowan Frazier Lymphocytes/100 WBC (Bld) 27.0 % Normal 20.5-60.0 [facility] Comment on above: Performed By: #### C BC ####[facility] Jzumowtkag6411 [place] [address]Dr. Tishrowan Frazier MANUAL DIFF REQ NO Normal [facility] Comment on above: Performed By: #### C BC ####[facility] Xgfnhfxrmn7495 [place] [address]Dr. Chrissy Freddie MCH (RBC) [Entitic mass] 27.8 pg Normal 25.9-34.0 [facility] Comment on above: Performed By: #### C BC ####[facility] Fkfuseunxo4617 [place] [address]Dr. Chrissy Freddie MCHC (RBC) [Mass/Vol] 33.5 g/dL Normal 29.9-35.2 [facility] Comment on above: Performed By: #### C BC ####[facility] Btquuqbynf3638 [place] [address]Dr. Chrissy Frazier MCV (RBC) [Entitic vol] 82.9 fL Normal 80.0-94.0 [facility] Comment on above: Performed By: #### C BC ####[facility] Uwumcbjhaj5218 [place] [address]Dr. Chrissy Frazier MONO # 1.2 103/ul Critically high 0.3-0.8 [facility] Comment on above: Performed By: #### C BC ####[facility] Pfrwfndsyp9071 [place] [address]Dr. Chrissy Frazier Monocytes/100 WBC (Bld) 8.4 % Normal 1.7-12.0 [facility] Comment on above: Performed By: #### C BC ####[facility] Humgvxvctv6212 [place] [id number]. Chrissy Frazier NEUT # 8.8 103/ul Critically high 1.4-6.5 [facility] Comment on above: Performed By: #### C BC ####[facility] Keoyfugfpx0241 [place] [id number]. Chrissy Frazier Neutrophils/100 WBC (Bld) 63.5 % Normal 43.0-75.0 [facility] Comment on above: Performed By: #### C BC ####[facility] Qkiizuzffl1306 [place] [phone]. Chrissy Frazier Platelet mean volume (Bld) [Entitic vol] 10.7 fL Normal 9.5-13.5 [facility] Comment on above: Performed By: #### C BC ####[facility] Gepuzgzzey6439 [place] [phone]. Chrissy Frazier PLT 291 103/ul Normal 150-450 [facility] Comment on above: Performed By: #### C BC ####[facility] Yriutgksss8384 [place] [id number]. Chrissy Frazier RBC 4.75 106/ul Normal 4.70-6.10 [facility] Comment on above: Performed By: #### C BC ####[facility] Voizfmpwhm2978 [place] [id number]. Chrissy Frazier WBC 13.8 103/ul Critically high 4.0-11.0 [facility] Comment on above: Performed By: #### C BC ####[facility] Gxjneqoqcy1925 [place] [phone]. Chrissy Freddie LIPASEon 10-24-2022 Lipase [Catalytic activity/Vol] 44.0 U/L Critically low 73.0-393.0 [facility] Comment on above: Performed By: #### C MP, LIPBean, TERRENCE ####[facility] Uwyltbpftt7051 [place] [address]Dr. Tishrowan Frazier PROF 14(COMP METB)on 022 Albumin [Mass/Vol] 3.4 g/dL Normal 3.4-5.0 [facility] Comment on above: Performed By: #### C MP, LIPA, TERRENCE ####[facility] Eqxtbhcgfe9873 [place] [address]Dr. Chrissy Freddie Albumin/Globulin [Mass ratio] 0.9 {ratio} Normal [facility] Comment on above: Performed By: #### C MP, LIPA, TERRENCE ####[facility] Xkcfqzdrnm8393 [place] [address]Dr. Chrissy Freddie ALP [Catalytic activity/Vol] 67 U/L Normal 46-116 [facility] Comment on above: Performed By: #### C MP, LIPA, TERRENCE ####[facility] Nlyierenvs[address] [place], [place] [address]Dr. Chrissy Frazier ALT [Catalytic activity/Vol] 25 U/L Normal 16-63 [facility] Comment on above: Performed By: #### C MP, LIPA, TERRENCE ####[facility] Mfoqmwodrp6[address] [place], [place] [address]Dr. Chrissy Frazier Anion gap [Moles/Vol] 14.5 mmol/L Normal [facility] Comment on above: Performed By: #### C MP, LIPA, TERRENCE ####[facility] Vmjsjggdyw70[address] [place], [place] [address]Dr. Tishrowan Frazier AST [Catalytic activity/Vol] 17 U/L Normal 15-37 [facility] Comment on above: Performed By: #### C MP, LIPA, TERRENCE ####[facility] Zhxsxkpoej167[address] [place], [place] [address]Dr. Chrissy Frazier Bilirubin [Mass/Vol] 0.5 mg/dL Normal 0.2-1.0 [facility] Comment on above: Performed By: #### C MP, LIPA, TERRENCE ####[facility] Iwvgucargo066[address] [place], [place] [address]Dr. Chrissy Frazier Calcium [Mass/Vol] 8.6 mg/dL Normal 8.5-10.1 [facility] Comment on above: Performed By: #### C MP, LIPA, TERRENCE ####[facility] Qkamyyxxyd628[address] [place], [place] [address]Dr. Chrissy Frazier Chloride [Moles/Vol] 106 mmol/L Normal 98-107 [facility] Comment on above: Performed By: #### C OSWALD ADAIR AMY ####[facility] Jgnzoykacm4417 [place] [address]Dr. Chrissy Frazier CO2 [Moles/Vol] 22.8 mmol/L Normal 21.0-32.0 [facility] Comment on above: Performed By: #### C OSWALD ADAIR, TERRENCE ####[facility] Fqrrqkdxfj02[address] [place], [place] [address]Dr. Chrissy Frazier Creatinine [Mass/Vol] 0.98 mg/dL Normal 0.70-1.30 [facility] Comment on above: Performed By: #### C OSWALD ADAIR AMY ####[facility] Sxymdeydjt665[address] [place], [place] [address]Dr. Chrissy Frazier EGFR-AF WELSH >60 Normal >=60 [facility] Comment on above: Performed By: #### C OSWALD ADAIR AMY ####[facility] Howjjdomko016[address] [place], [place] [address]Dr. Chrissy Frazier EGFR-NON AF WELSH >60 Normal >=60 [facility] Comment on above: Performed By: #### C OSWALD ADAIR AMY ####[facility] Ykfwwgioae54[address] [place], [place] [address]Dr. Chrissy Frazier Globulin (S) [Mass/Vol] 3.7 g/dL Normal [facility] Comment on above: Performed By: #### C OSWALD ADAIR AMY ####[facility] Vwlneejrzs2961 [place] [address]Dr. Chrissy Frazier Glucose [Mass/Vol] 115 mg/dL Critically high 74-106 [facility] Comment on above: Performed By: #### C OSWALD ADAIR AMY ####[facility] Mfvnrkerqg330[address] [place], [place] [address]Dr. Chrissy Frazier Potassium [Moles/Vol] 3.3 mmol/L Critically low 3.5-5.1 [facility] Comment on above: Performed By: #### C MP, LIPA, TERRENCE ####[facility] Fdxrssrafm0953 [place] [address]Dr. Chrissy Frazier Protein [Mass/Vol] 7.1 g/dL Normal 6.4-8.2 [facility] Comment on above: Performed By: #### C MP, LIPA, TERRENCE ####[facility] Oobnmjsxjm7047 [place] [address]Dr. Chrissy Frazier Sodium [Moles/Vol] 140 mmol/L Normal 136-145 [facility] Comment on above: Performed By: #### C MP, LIPA, TERRENCE ####[facility] Xdjylviqag510[address] [place], [place] [address]Dr. Chrissy Frazier Urea nitrogen [Mass/Vol] 10.0 mg/dL Normal 7.0-18.0 [facility] Comment on above: Performed By: #### C MP, LIPA, TERRENCE ####[facility] Yhejptcxta718[address] [place], [place] [address]Dr. Tishrowan Freddie Urea nitrogen/Creatinine [Mass ratio] 10.2 mg/mg Normal [facility] Comment on above: Performed By: #### C MP, LIPA, TERRENCE ####[facility] Kcalrrrikv428[address] [place], [place] [address]Dr. Chrissy Freddie AMYLASEon 10-23-2022 Amylase [Catalytic activity/Vol] 31 U/L Normal 25-115 [facility] Comment on above: Performed By: #### C MP, LIPA, TERRENCE ####[facility] Ionyustrpl436[address] [place], [place] [address]Dr. Chrissy Frazier CBC AUTO DIFFon 10-23-2022 BASO # 0.1 103/ul Normal 0.0-0.1 [facility] Comment on above: Performed By: #### C BC ####[facility] Dlhkkeirgp895[address] [place], [place] [address]Dr. Chrissy Freddie Basophils/100 WBC (Bld) 0.3 % Normal 0.2-2.0 [facility] Comment on above: Performed By: #### C BC ####[facility] Jeehlqznrp06[address] [place], [place] [address]Dr. Chrissy Frazier EO # 0.1 103/ul Normal 0.0-0.7 [facility] Comment on above: Performed By: #### C BC ####[facility] Pszsddqmhg2165 [place] [address]Dr. Tishrowan Frazier Eosinophils/100 WBC (Bld) 0.3 % Critically low 0.9-7.0 [facility] Comment on above: Performed By: #### C BC ####[facility] Oonabpmbqp900[address] [place], [place] [address]Dr. Tishrowan Frazier Erythrocyte distribution width (RBC) [Ratio] 14.5 % Normal 11.0-15.0 [facility] Comment on above: Performed By: #### C BC ####[facility] Uyiudfjyix247[address] [place], [place] [address]Dr. Chrissy Frazier Hematocrit (Bld) [Volume fraction] 44.0 % Normal 42.0-54.0 [facility] Comment on above: Performed By: #### C BC ####[facility] Ikfkhiqqzv2020[address] [place], [place] [address]Dr. Tishrowan Frazier Hemoglobin (Bld) [Mass/Vol] 14.8 g/dL Normal 14.0-18.0 [facility] Comment on above: Performed By: #### C BC ####[facility] Zyhfluiyeq5[address] [place], [place] [address]Dr. Chrissy Frazier IG # 0.09 10e3/ul Critically high 0.00-0.03 [facility] Comment on above: Performed By: #### C BC ####[facility] Sqqjjklfyc0924[address] [place], [place] [address]Dr. Chrissy Frazier IG % 0.5 % Normal 0.0-0.5 [facility] Comment on above: Performed By: #### C BC ####[facility] Hwnqlefrgc654[address] [place], [place] [address]DrNancy Frazier LYMPH # 3.6 103/ul Normal 1.2-3.8 [facility] Comment on above: Performed By: #### C BC ####[facility] Vpfbebzgpr658[address] [place], [place] [address]Dr. Chrissy Frazier Lymphocytes/100 WBC (Bld) 19.4 % Critically low 20.5-60.0 [facility] Comment on above: Performed By: #### C BC ####[facility] Tetvjvssup9938 [place] [address]DrNancy Frazier MANUAL DIFF REQ NO Normal [facility] Comment on above: Performed By: #### C BC ####[facility] Hkddmukasm5914 [place] [address]Dr. Chrissy Frazier MCH (RBC) [Entitic mass] 28.1 pg Normal 25.9-34.0 [facility] Comment on above: Performed By: #### C BC ####[facility] Dochrxhxdf889[address] [place], [place] [address]Dr. Chrissy Frazier MCHC (RBC) [Mass/Vol] 33.6 g/dL Normal 29.9-35.2 [facility] Comment on above: Performed By: #### C BC ####[facility] Opuklxhird6940[address] [place], [place] [address]Dr. Chrissy Frazier MCV (RBC) [Entitic vol] 83.5 fL Normal 80.0-94.0 [facility] Comment on above: Performed By: #### C BC ####[facility] Ylarrvpnxi039[address] [place], [place] [address]Dr. Chrissy Frazier MONO # 0.9 103/ul Critically high 0.3-0.8 [facility] Comment on above: Performed By: #### C BC ####[facility] Mzzmyftkhi0104[address] [place], [place] [address]DrNancy Frazier Monocytes/100 WBC (Bld) 4.9 % Normal 1.7-12.0 [facility] Comment on above: Performed By: #### C BC ####[facility] Cenibpnhft18[address] [place], [place] [address]DrNancy Frazier NEUT # 13.9 103/ul Critically high 1.4-6.5 [facility] Comment on above: Performed By: #### C BC ####[facility] Vwuxximztz740[address] [place], [place] [address]Dr. Chrissy Frazier Neutrophils/100 WBC (Bld) 74.6 % Normal 43.0-75.0 [facility] Comment on above: Performed By: #### C BC ####[facility] Qawalinkcy7055 [place] [address]Dr. Chrissy Frazier Platelet mean volume (Bld) [Entitic vol] 10.5 fL Normal 9.5-13.5 [facility] Comment on above: Performed By: #### C BC ####[facility] Qefesnaajw7190 [place] [address]Dr. Chrissy Frazier PLT 402 103/ul Normal 150-450 [facility] Comment on above: Performed By: #### C BC ####[facility] Tsjrnpealb12[address] [place], [place] [address]Dr. Chrissy Frazier RBC 5.27 106/ul Normal 4.70-6.10 [facility] Comment on above: Performed By: #### C BC ####[facility] Xtkufsxzlv0099[address] [place], [place] [address]Dr. Chrissy Frazier WBC 18.6 103/ul Critically high 4.0-11.0 [facility] Comment on above: Performed By: #### C BC ####[facility] Qeazgdzmon696[address] [place], [place] [address]Dr. Chrissy Frazier CULTURE BLOODon 10-23-2022 Microscopic examination of blood, culture Culture Observations: NO GROWTH AT 5 DAYS. Normal [facility] Comment on above: Performed By: #### B LDCX2 ####[facility] Uvebwujhmx64[address] [place], [place] [id number]. Chrissy Frazier Microscopic examination of blood, culture Culture Observations: NO GROWTH AT 5 DAYS. Normal [facility] Comment on above: Performed By: #### B LDCX1 ####[facility] Ltgakvthtg86[address] [place], [place] [address]Dr. Chrissy Frazier CULTURE URINEon 10-23-2022 CULTURE URINE Culture Observations: NO GROWTH. Normal [facility] Comment on above: Performed By: #### U RCX ####[facility] Wjmwsnjzzl516[address] [place], [place] [address]Dr. Chrissy Frazier Covid-19 PCR (CVDTB)on SARS-CoV-2 (COVID-19) RNA RHIANNON+probe Ql (Unsp spec) Not detected Normal NOT DETECTED [facility] Comment on above: Result Comment: When [...] for this test is supported by the [employer] of Health and Human Service's declaration that [...] be used). Performed By: #### C VDTBH ####[facility] Yglhojsgie[address] Chrissy Frazier INFLUENZA A AND B AGon 10-23 INFLUANEGH SEE BELOW Normal [facility] Comment on above: Result Comment: Nega tive for Flu A protein angiten. Infection due to Flu A cannot be ruled out. Flu A angiten in the sample may be below the detection limit of the test. Performed By: #### I NFLUAB ####[facility] Fulxlnbhge8053 [place] [address]Dr. Chrissy Frazier INFLUBNEGH SEE BELOW Normal [facility] Comment on above: Result Comment: Nega tive for Flu B protein antigen. Infection due to Flu B cannot be ruled out. Flu B antigen in the sample may be below the detection limit of the test. Performed By: #### I NFLUAB ####[facility] [address]eby[address] [place], [place] [address]rowan [facility] INFLUENZA A AG Negative Normal NEGATIVE SEE COMMENT [facility] Comment on above: Performed By: #### I NFLUAB ####[facility] Ktgbayxiuq8634 [place] [address]Dr. Chrissy Frazier INFLUENZA B AG Negative Normal NEGATIVE SEE COMMENT [facility] Comment on above: Performed By: #### I NFLUAB ####[facility] [address]wlvnmmj[address] [place] [address]Dr. Chrissy Frazier INTERNAL CONTROLS Within Normal Limits Normal Wi thin Normal Limits [facility] Comment on above: Performed By: #### I NFLUAB ####[facility] Hoeosvusdp[address] [place] [address]Dr. Chrissy Frazier LACTATE/LACTIC ACIDon 2021 Lactate [Moles/Vol] 2.1 mmol/L Critically high 0.4-1.9 [facility] Comment on above: Performed By: #### L ACT ####[facility] Svsyvljkno[address] [place], [place] [address]Dr. Chrissy Frazier Lactate [Moles/Vol] 6.9 mmol/L Critically high 0.4-1.9 [facility] Comment on above: Performed By: #### L ACT ####[facility] Sbltsjbkqz[address] [place], [place] [address]Dr. Chrissy Frazier LIPASEon 10-23-2022 Lipase [Catalytic activity/Vol] 72.0 U/L Critically low 73.0-393.0 [facility] Comment on above: Performed By: #### C OSWALD ADAIR AMY ####[facility] Wxboaebjzb[address] [place], [place] [address]Dr. Chrissy Frazier PROF 14(COMP METB)on 022 Albumin [Mass/Vol] 3.9 g/dL Normal 3.4-5.0 [facility] Comment on above: Performed By: #### C OSWALD ADAIR TERRENCE ####[facility] Stswyuzovo[address] [place], [place] [address]Dr. Chrissy Frazier Albumin/Globulin [Mass ratio] 0.9 {ratio} Normal [facility] Comment on above: Performed By: #### C OSWALD ADAIR TERRENCE ####[facility] Lvpaujziik[address] [place] [address]Dr. Chrissy Frazier ALP [Catalytic activity/Vol] 82 U/L Normal 46-116 [facility] Comment on above: Performed By: #### C MANA LIPA, TERRENCE ####[facility] Aarqkbbgkg4[address] [place] [address]Dr. Chrissy Frazier ALT [Catalytic activity/Vol] 25 U/L Normal 16-63 [facility] Comment on above: Performed By: #### C MANA LIPA, TERRENCE ####[facility] Acyncpiedd13[address] [place] [address]Dr. Chrissy Frazier Anion gap [Moles/Vol] 18.1 mmol/L Normal [facility] Comment on above: Performed By: #### C MANA LIPA, TERRENCE ####[facility] Xcssuwwsgr[address] [place], [place] [address]Dr. Chrissy Frazier AST [Catalytic activity/Vol] 17 U/L Normal 15-37 [facility] Comment on above: Performed By: #### C MANA LIPA, TERRENCE ####[facility] Cqcfaooxlt132[address] [place], [place] [address]Dr. Chrissy Frazier Bilirubin [Mass/Vol] 0.5 mg/dL Normal 0.2-1.0 [facility] Comment on above: Performed By: #### C MANA LIPA, TERRENCE ####[facility] Haxorslagm[address] [place] [address]Dr. Chrissy Frazier Calcium [Mass/Vol] 9.1 mg/dL Normal 8.5-10.1 [facility] Comment on above: Performed By: #### C MANA LIPA, TERRENCE ####[facility] Aaqrqyewxt[address] [place] [address]Dr. Chrissy Frazier Chloride [Moles/Vol] 101 mmol/L Normal 98-107 [facility] Comment on above: Performed By: #### C MP, LIPA, TERRENCE ####[facility] Jzezztvada4354 [place] [address]Dr. Chrissy Frazier CO2 [Moles/Vol] 19.2 mmol/L Critically low 21.0-32.0 [facility] Comment on above: Performed By: #### C MANA LIPA, TERRENCE ####[facility] Pfphyfcudx2[address] [place] [address]Dr. Chrissy Frazier Creatinine [Mass/Vol] 1.72 mg/dL Critically high 0.70-1.30 [facility] Comment on above: Performed By: #### C MANA LIPA, TERRENCE ####[facility] Pkookhloom[address] [place] [address]Dr. Chrissy Frazier EGFR-AF WELSH 56 mL/min/1.73m2 Critically low >=60 [facility] Comment on above: Performed By: #### C MANA LIPA, TERRENCE ####[facility] Atpqsxytrj412[address] [place], [place] [address]Dr. Chrissy Frazier EGFR-NON AF WELSH 46 mL/min/1.73m2 Critically low >=60 [facility] Comment on above: Performed By: #### C MANA LIPA, TERRENCE ####[facility] Xmpgaekcub46[address] [place], [place] [address]Dr. Chrissy Frazier Globulin (S) [Mass/Vol] 4.2 g/dL Normal [facility] Comment on above: Performed By: #### C TESSA ADAIRA, TERRENCE ####[facility] Feagegpoim1938[address] [place], [place] [address]Dr. Chrissy Frazier Glucose [Mass/Vol] 126 mg/dL Critically high 74-106 T [facility] Comment on above: Performed By: #### C MANA LIPA, TERRENCE ####[facility] Qcosqpumzi139[address] [place], [place] [address]Dr. Chrissy Frazier Potassium [Moles/Vol] 3.3 mmol/L Critically low 3.5-5.1 [facility] Comment on above: Performed By: #### C MP LIPA, TERRENCE ####[facility] Qklaxapilt740[address] [place], [place] [address]Dr. Chrissy Frazier Protein [Mass/Vol] 8.1 g/dL Normal 6.4-8.2 [facility] Comment on above: Performed By: #### C MANA LIPA, TERRENCE ####[facility] Rpnirvsbcw15[address] [place] [address]Dr. Chrissy Frazier Sodium [Moles/Vol] 135 mmol/L Critically low 136-145 [facility] Comment on above: Performed By: #### C OSWALD ADAIR, TERRENCE ####[facility] Jstagyrtoo38[address] [place] [address]Dr. Chrissy Frazier Urea nitrogen [Mass/Vol] 13.0 mg/dL Normal 7.0-18.0 [facility] Comment on above: Performed By: #### C OSWALD ADAIR, TERRENCE ####[facility] Bbzzyilqvt320[address] [place], [place] [address]Dr. Chrissy Frazier Urea nitrogen/Creatinine [Mass ratio] 7.6 mg/mg Normal [facility] Comment on above: Performed By: #### C OSWALD ADAIR AMY ####[facility] Mpzkmpjbrr[address] [place], [place] [address]Dr. Chrissy Frazier UA RANDOM W/MICROSCOPICon BACTERIA NONE SEEN Normal NONE SEEN [facility] Comment on above: Performed By: #### U AMIC ####[facility] Jgophmbagr268[address] [place], [place] [address]Dr. Chrissy Frazier Bilirubin Ql (U) Negative Normal NEGATIVE [facility] Comment on above: Performed By: #### U AMIC ####[facility] Hbcvcnqzri49[address] [place], [place] [address]Dr. Chrissy Frazier CAST NONE SEEN Normal NONE SEEN [facility] Comment on above: Performed By: #### U AMIC ####[facility] Odjrvqnvhq9[address] [place], [place] [address]Dr. Chrissy Frazier Clarity (U) CLEAR Normal CLEAR [facility] Comment on above: Performed By: #### U AMIC ####[facility] Ieubpbxicr94[address] [place], [place] [address]Dr. Chrissy Frazier Color (U) LT. YELLOW Normal YELLOW [facility] Comment on above: Performed By: #### U AMIC ####[facility] Gxywzimdkz5320[address] [place], [place] [address]Dr. Chrissy Frazier Crystals LM Nom (Urine sed) NONE SEEN Normal NONE SEEN [facility] Comment on above: Performed By: #### U AMIC ####[facility] Pkxzmsbtrs7[address] [place] [address]Dr. Chrissy Frazier Epithelial cells LM Ql (Urine sed) FEW Abnormal NONE SEEN /RARE [facility] Comment on above: Performed By: #### U AMIC ####[facility] Oiefcbijop[address] [place] [address]Dr. Chrissy Frazier Glucose Ql (U) Negative Normal NEGATIVE [facility] Comment on above: Performed By: #### U AMIC ####[facility] Xdzqqdtgyw4418[address] [place], [place] [address]Dr. Chrissy Frazier Hemoglobin Ql (U) Negative Normal NEGATIVE [facility] Comment on above: Performed By: #### U AMIC ####[facility] Rpjlciqsbb311[address] [place], [place] [address]Dr. Chrissy Frazier Ketones Ql (U) 15 mg/dl Abnormal NEGATIVE [facility] Comment on above: Performed By: #### U AMIC ####[facility] Ccvetuatoo647[address] [place], [place] [address]Dr. Chrissy Frazier LEUKOCYTES Negative Normal NEGATIVE [facility] Comment on above: Performed By: #### U AMIC ####[facility] Xxpxczgfqf557[address] [place], [place] [address]Dr. Chrissy Frazier MUCOUS NONE SEEN Normal NONE SEEN [facility] Comment on above: Performed By: #### U AMIC ####[facility] Gpcbjdregg04[address] [place], [place] [address]Dr. Chrissy Frazier Nitrite Ql (U) Negative Normal NEGATIVE [facility] Comment on above: Performed By: #### U AMIC ####[facility] Fglzbrtqsj1318[address] [place], [place] [address]Dr. Chrissy Frazier pH (U) 6.0 [pH] Normal 5-9 [facility] Comment on above: Performed By: #### U AMIC ####[facility] Kriwexviwy32[address] [place], [place] [address]Dr. Chrissy Frazier RBC 0-2 Normal 0-2 [facility] Comment on above: Performed By: #### U AMIC ####[facility] Hrueepyjcl[address] [place] [address]Dr. Chrissy Frazier SPEC GRAVITY 1.010 Normal 1.005-<=1.025 [facility] Comment on above: Performed By: #### U AMIC ####[facility] Jjjlqrtgqk29[address] [place] [address]Dr. Chrissy Frazier UA PROTEIN Negative Normal NEGATIVE/ TRACE [facility] Comment on above: Performed By: #### U AMIC ####[facility] Jqccjouvny7939 [place] [address]Dr. Chrissy Frazier Urobilinogen Qn (U) 0.2 {Estrellita'U}/dL Normal 0.2 - 1. 0 [facility] Comment on above: Performed By: #### U AMIC ####[facility] Nfhrhchans27[address] [place], [place] [address]Dr. Chrissy Frazier WBC NONE SEEN Normal NONE SEEN [facility] Comment on above: Performed By: #### U AMIC ####[facility] Xgwsazjzdh[address] [place] [address]Dr. Chrissy Freddie AMYLASEon 10-22-2022 Amylase [Catalytic activity/Vol] 28 U/L Normal 25-115 [facility] Comment on above: Performed By: #### L IPA, CMP, TERRENCE ####[facility] Ofpgmgcucy08[address] [place], [place] [address]Dr. Chrissy Frazier CBC AUTO DIFFon 10-22-2022 BASO # 0.0 103/ul Normal 0.0-0.1 [facility] Comment on above: Performed By: #### C BC ####[facility] Xopnvdeqyv09[address] [place], [place] [address]Dr. Chrissy Frazier Basophils/100 WBC (Bld) 0.2 % Normal 0.2-2.0 [facility] Comment on above: Performed By: #### C BC ####[facility] Ueykilbfgy3940[address] [place], [place] [address]Dr. Chrissy Frazier EO # 0.0 103/ul Normal 0.0-0.7 [facility] Comment on above: Performed By: #### C BC ####[facility] Qemykjnbbp5[address] [place] [address]Dr. Chrissy Frazier Eosinophils/100 WBC (Bld) 0.1 % Critically low 0.9-7.0 [facility] Comment on above: Performed By: #### C BC ####[facility] Zqwdshdwkd9[address] [place], [place] [address]Dr. Chrissy Frazier Erythrocyte distribution width (RBC) [Ratio] 14.4 % Normal 11.0-15.0 [facility] Comment on above: Performed By: #### C BC ####[facility] Fqhipipsko593[address] [place], [place] [address]Dr. Chrissy Frazier Hematocrit (Bld) [Volume fraction] 45.2 % Normal 42.0-54.0 [facility] Comment on above: Performed By: #### C BC ####[facility] Gexyeffshw224[address] [place], [place] [address]Dr. Chrissy Frazier Hemoglobin (Bld) [Mass/Vol] 15.4 g/dL Normal 14.0-18.0 [facility] Comment on above: Performed By: #### C BC ####[facility] Zbtkbvuxmu389[address] [place], [place] [address]Dr. Chrissy Frazier IG # 0.07 10e3/ul Critically high 0.00-0.03 [facility] Comment on above: Performed By: #### C BC ####[facility] Jrrysmzddw507[address] [place], [place] [address]Dr. Chrissy Freddie IG % 0.4 % Normal 0.0-0.5 [facility] Comment on above: Performed By: #### C BC ####[facility] Sfueqjnjag29[address] [place], [place] [address]Dr. Chrissy Frazier LYMPH # 2.0 103/ul Normal 1.2-3.8 [facility] Comment on above: Performed By: #### C BC ####[facility] Aykczavupk660[address] [place], [place] [address]Dr. Chrissy Frazier Lymphocytes/100 WBC (Bld) 12.2 % Critically low 20.5-60.0 [facility] Comment on above: Performed By: #### C BC ####[facility] Ajtbunjihm1623 [place] [address]DrNancy Frazier MANUAL DIFF REQ NO Normal [facility] Comment on above: Performed By: #### C BC ####[facility] Sogyhgeqor8[address] [place] [address]Dr. Chrissy Frazier MCH (RBC) [Entitic mass] 28.3 pg Normal 25.9-34.0 [facility] Comment on above: Performed By: #### C BC ####[facility] Puqqtbqkza2625[address] [place], [place] [address]Dr. Chrissy Frazier MCHC (RBC) [Mass/Vol] 34.1 g/dL Normal 29.9-35.2 [facility] Comment on above: Performed By: #### C BC ####[facility] Zqssynvfcc967[address] [place], [place] [address]DrNancy Frazier MCV (RBC) [Entitic vol] 82.9 fL Normal 80.0-94.0 [facility] Comment on above: Performed By: #### C BC ####[facility] Uahuznsxpx2427[address] [place], [place] [address]DrNancy Frazier MONO # 0.3 103/ul Normal 0.3-0.8 [facility] Comment on above: Performed By: #### C BC ####[facility] Kkxwlswsvv5913[address] [place], [place] [address]DrNancy Frazier Monocytes/100 WBC (Bld) 2.0 % Normal 1.7-12.0 [facility] Comment on above: Performed By: #### C BC ####[facility] Rigwozaayg3450[address] [place], [place] [address]DrNancy Frazier NEUT # 14.0 103/ul Critically high 1.4-6.5 [facility] Comment on above: Performed By: #### C BC ####[facility] Jtcknwmdci5312[address] [place], [place] [address]DrNancy Frazier Neutrophils/100 WBC (Bld) 85.1 % Critically high 43.0-75.0 [facility] Comment on above: Performed By: #### C BC ####[facility] Rijnonkdev3465 [place] [address]Dr. Chrissy Frazier Platelet mean volume (Bld) [Entitic vol] 10.6 fL Normal 9.5-13.5 [facility] Comment on above: Performed By: #### C BC ####[facility] Ewtrcebdgk3976 [place] [address]Dr. Chrissy Frazier PLT 411 103/ul Normal 150-450 [facility] Comment on above: Performed By: #### C BC ####[facility] Sitxvzloql765[address] [place], [place] [address]Dr. Chrissy Frazier RBC 5.45 106/ul Normal 4.70-6.10 [facility] Comment on above: Performed By: #### C BC ####[facility] Xyqxeypgqg66[address] [place], [place] [address]Dr. Chrissy Frazier WBC 16.5 103/ul Critically high 4.0-11.0 [facility] Comment on above: Performed By: #### C BC ####[facility] Wywseghtih41[address] [place], [place] [address]Dr. Chrissy Frazier LIPASEon 10-22-2022 Lipase [Catalytic activity/Vol] 57.0 U/L Critically low 73.0-393.0 [facility] Comment on above: Performed By: #### L IPA CMP, TERRENCE ####[facility] Fwkdcxezyd7526[address] [place], [place] [address]Dr. Chrissy Frazier PROF 14(COMP METB)on 022 Albumin [Mass/Vol] 4.2 g/dL Normal 3.4-5.0 [facility] Comment on above: Performed By: #### L IPA CMP, TERRENCE ####[facility] Islnopjzsq[address] [place] [address]Dr. Chrissy Frazier Albumin/Globulin [Mass ratio] 1.0 {ratio} Normal [facility] Comment on above: Performed By: #### L IPA, CMP, TERRENCE ####[facility] Cfxnlasblw8186 [place] [address]Dr. Chrissy Frazier ALP [Catalytic activity/Vol] 92 U/L Normal 46-116 [facility] Comment on above: Performed By: #### L IPA, CMP, TERRENCE ####[facility] Qiuxmkfvdy9854 [place] [address]Dr. Chrissy Frazier ALT [Catalytic activity/Vol] 26 U/L Normal 16-63 [facility] Comment on above: Performed By: #### L IPA, CMP, TERRENCE ####[facility] Gpvhykwvty630[address] [place], [place] [address]Dr. Chrissy Frazier Anion gap [Moles/Vol] 19.5 mmol/L Normal [facility] Comment on above: Performed By: #### L IPA, CMP, TERRENCE ####[facility] Snhphdzyfe13[address] [place], [place] [address]Dr. Chrissy Frazier AST [Catalytic activity/Vol] 19 U/L Normal 15-37 [facility] Comment on above: Performed By: #### L IPA, CMP, TERRENCE ####[facility] Qrwqwgpcqd669[address] [place], [place] [address]Dr. Chrissy Frazier Bilirubin [Mass/Vol] 0.7 mg/dL Normal 0.2-1.0 [facility] Comment on above: Performed By: #### L IPA, CMP, TERRENCE ####[facility] Bswcvhcyki489[address] [place], [place] [address]Dr. Chrissy Frazier Calcium [Mass/Vol] 9.6 mg/dL Normal 8.5-10.1 [facility] Comment on above: Performed By: #### L IPA, CMP, TERRENCE ####[facility] Klpcqmbzcb0992 [place] [address]Dr. Chrissy Frazier Chloride [Moles/Vol] 102 mmol/L Normal 98-107 [facility] Comment on above: Performed By: #### L IPA, CMP, TERRENCE ####[facility] Yrwbcuobkh09[address] [place], [place] [address]Dr. Chrissy Frazier CO2 [Moles/Vol] 19.1 mmol/L Critically low 21.0-32.0 [facility] Comment on above: Performed By: #### L IPA, CMP, TERRENCE ####[facility] Bbflqxlacx0420 [place] [address]Dr. Chrissy Freddie Creatinine [Mass/Vol] 1.47 mg/dL Critically high 0.70-1.30 [facility] Comment on above: Performed By: #### L IPA, CMP, TERRENCE ####[facility] Qcllxqljuu7259 [place] [address]Dr. Chrissy Frazier EGFR-AF WELSH >60 Normal >=60 [facility] Comment on above: Performed By: #### L IPA, CMP, TERRENCE ####[facility] Gesndxtcnv7[address] [place], [place] [address]Dr. Chrissy Frazier EGFR-NON AF WELSH 56 mL/min/1.73m2 Critically low >=60 [facility] Comment on above: Performed By: #### L IPA, CMP, TERRENCE ####[facility] Azwsyodbvl53[address] [place], [place] [address]Dr. Chrissy Frazier Globulin (S) [Mass/Vol] 4.3 g/dL Normal [facility] Comment on above: Performed By: #### L IPA, CMP, TERRENCE ####[facility] Rezymrthuj844[address] [place], [place] [address]Dr. Chrissy Frazier Glucose [Mass/Vol] 189 mg/dL Critically high 74-106 [facility] Comment on above: Performed By: #### L IPA, CMP, TERRENCE ####[facility] Dqrvwnefai448[address] [place], [place] [address]Dr. Chrissy Frazier Potassium [Moles/Vol] 4.6 mmol/L Normal 3.5-5.1 [facility] Comment on above: Performed By: #### L IPA, CMP, TERRENCE ####[facility] Ulntxoojiu398[address] [place], [place] [address]Dr. Chrissy Frazier Protein [Mass/Vol] 8.5 g/dL Critically high 6.4-8.2 [facility] Comment on above: Performed By: #### L IPA, CMP, TERRENCE ####[facility] Yxnwewsbco517[address] [place], [place] [address]Dr. Chrissy Frazier Sodium [Moles/Vol] 136 mmol/L Normal 136-145 [facility] Comment on above: Performed By: #### L IPA CMP, TERRENCE ####[facility] Bdjvaulhtd1354 [place] [address]Dr. Chrissy Frazier Urea nitrogen [Mass/Vol] 16.0 mg/dL Normal 7.0-18.0 [facility] Comment on above: Performed By: #### L IPA CMP, TERRENCE ####[facility] Okattgpiji514[address] [place], [place] [address]Dr. Chrissy Frazier Urea nitrogen/Creatinine [Mass ratio] 10.9 mg/mg Normal [facility] Comment on above: Performed By: #### L IPA CMP, TERRENCE ####[facility] Gssezdnbwc12[address] [place], [place] [address]Dr. Chrissy Frazier AMYLASEon 09-03-2022 Amylase [Catalytic activity/Vol] 25 U/L Normal 25-115 [facility] Comment on above: Performed By: #### L IPA TERRENCE, CMP ####[facility] Irfxuojvfd030[address] [place], [place] [address]Dr. Chrissy Frazier CBC AUTO DIFFon 09-03-2022 BASO # 0.0 103/ul Normal 0.0-0.1 [facility] Comment on above: Performed By: #### C BC ####[facility] Ackvbynugu0870[address] [place], [place] [address]Dr. Chrissy Frazeir Basophils/100 WBC (Bld) 0.1 % Critically low 0.2-2.0 [facility] Comment on above: Performed By: #### C BC ####[facility] Vkwxrtztgc245[address] [place], [place] [address]Dr. Chrissy Frazier EO # 0.0 103/ul Normal 0.0-0.7 [facility] Comment on above: Performed By: #### C BC ####[facility] Igcoshyaxj456[address] [place], [place] [address]Dr. Chrissy Frazier Eosinophils/100 WBC (Bld) 0.1 % Critically low 0.9-7.0 [facility] Comment on above: Performed By: #### C BC ####[facility] Wmhbpeovzf9235 [place] [address]Dr. Chrissy Frazier Erythrocyte distribution width (RBC) [Ratio] 14.0 % Normal 11.0-15.0 [facility] Comment on above: Performed By: #### C BC ####[facility] Xzvynxsvyq397[address] [place], [place] [address]Dr. Chrissy Frazier Hematocrit (Bld) [Volume fraction] 42.5 % Normal 42.0-54.0 [facility] Comment on above: Performed By: #### C BC ####[facility] Hzkdygufoz409[address] [place], [place] [address]Dr. Chrissy Frazier Hemoglobin (Bld) [Mass/Vol] 14.1 g/dL Normal 14.0-18.0 [facility] Comment on above: Performed By: #### C BC ####[facility] Gmofqxraqp5825[address] [place], [place] [address]Dr. Chrissy Frazier IG # 0.06 10e3/ul Critically high 0.00-0.03 [facility] Comment on above: Performed By: #### C BC ####[facility] Xthldczrzd1988[address] [place], [place] [address]Dr. Chrissy Frazier IG % 0.4 % Normal 0.0-0.5 [facility] Comment on above: Performed By: #### C BC ####[facility] Ailwixetip36[address] [place], [place] [address]Dr. Chrissy Frazier LYMPH # 2.5 103/ul Normal 1.2-3.8 [facility] Comment on above: Performed By: #### C BC ####[facility] Wvgefshmqv9[address] [place], [place] [address]Dr. Chrissy Frazier Lymphocytes/100 WBC (Bld) 16.3 % Critically low 20.5-60.0 [facility] Comment on above: Performed By: #### C BC ####[facility] Bqzlaqmwgy97[address] [place], [place] [address]Dr. Chrissy Frazier MANUAL DIFF REQ NO Normal [facility] Comment on above: Performed By: #### C BC ####[facility] Ofbrwradxp63[address] [place] [id number]. Chrissy Frazier MCH (RBC) [Entitic mass] 28.1 pg Normal 25.9-34.0 [facility] Comment on above: Performed By: #### C BC ####[facility] Mujssqctgl9377 [place] [id number]. Chrissy Frazier MCHC (RBC) [Mass/Vol] 33.2 g/dL Normal 29.9-35.2 [facility] Comment on above: Performed By: #### C BC ####[facility] Xvvvbppnpm7160 [place] [id number]. Chrissy Freddie MCV (RBC) [Entitic vol] 84.8 fL Normal 80.0-94.0 [facility] Comment on above: Performed By: #### C BC ####[facility] Ftmbyobzar059[address] [place], [place] [address]Dr. Chrissy Frazier MONO # 1.1 103/ul Critically high 0.3-0.8 [facility] Comment on above: Performed By: #### C BC ####[facility] Ehbhpeqleb150[address] [place], [place] [address]Dr. Chrissy Frazier Monocytes/100 WBC (Bld) 7.4 % Normal 1.7-12.0 [facility] Comment on above: Performed By: #### C BC ####[facility] Enzpafjuft625[address] [place], [place] [address]Dr. Tishrowan Frazier NEUT # 11.5 103/ul Critically high 1.4-6.5 [facility] Comment on above: Performed By: #### C BC ####[facility] Eeslbsagre5736 [place] [id number]. Chrissy Frazier Neutrophils/100 WBC (Bld) 75.7 % Critically high 43.0-75.0 [facility] Comment on above: Performed By: #### C BC ####[facility] Uofcjhrrok217[address] [place], [place] [address]Dr. Chrissy Frazier Platelet mean volume (Bld) [Entitic vol] 10.6 fL Normal 9.5-13.5 [facility] Comment on above: Performed By: #### C BC ####[facility] Modlamakwb[address] [place] [address]Dr. Chrissy Frazier PLT 310 103/ul Normal 150-450 [facility] Comment on above: Performed By: #### C BC ####[facility] Xurwxgynsh4835 [place] [address]Dr. Chrissy Frazier RBC 5.01 106/ul Normal 4.70-6.10 [facility] Comment on above: Performed By: #### C BC ####[facility] Ohfedgdxir3686 [place] [address]Dr. Chrissy Frazier WBC 15.2 103/ul Critically high 4.0-11.0 [facility] Comment on above: Performed By: #### C BC ####[facility] Sxegyrwruy2[address] [place] [address]Dr. Chrissy Frazier LIPASEon 09-03-2022 Lipase [Catalytic activity/Vol] 46.0 U/L Critically low 73.0-393.0 [facility] Comment on above: Performed By: #### L TERRENCE VICTORIA, CMP ####[facility] [address]uixwbem[address] [place], [place] [address]Dr. Chrissy Frazier PROF 14(COMP METB)on 022 Albumin [Mass/Vol] 3.7 g/dL Normal 3.4-5.0 [facility] Comment on above: Performed By: #### L JULIEN TERRENCE, CMP ####[facility] Zxvpizjxkn[address] [place], [place] [address]Dr. Chrissy Frazier Albumin/Globulin [Mass ratio] 1.0 {ratio} Normal [facility] Comment on above: Performed By: #### L JULIEN TERRENCE, CMP ####[facility] Wkrqgptpsn[address] [place], [place] [address]Dr. Chrissy Frazier ALP [Catalytic activity/Vol] 65 U/L Normal 46-116 [facility] Comment on above: Performed By: #### L IPA TERRENCE, CMP ####[facility] Hqqzskovnp036[address] [place], [place] [address]Dr. Chrissy Frazier ALT [Catalytic activity/Vol] 42 U/L Normal 16-63 [facility] Comment on above: Performed By: #### L TERRENCE VICTORIA, CMP ####[facility] [address] [place] [address]Dr. Chrissy Frazier Anion gap [Moles/Vol] 14.4 mmol/L Normal [facility] Comment on above: Performed By: #### L TERRENCE VICTORIA, CMP ####[facility] Aejvkshsxq50[address] [place], [place] [address]Dr. Chrissy Frazier AST [Catalytic activity/Vol] 16 U/L Normal 15-37 [facility] Comment on above: Performed By: #### L TERRENCE VICTORIA, CMP ####[facility] Mjhywedanp7[address] [place], [place] [address]Dr. Chrissy Frazier Bilirubin [Mass/Vol] 0.4 mg/dL Normal 0.2-1.0 [facility] Comment on above: Performed By: #### L TERRENCE VICTORIA, CMP ####[facility] Ftikyhzeuk[address] [place], [place] [address]Dr. Chrissy Frazier Calcium [Mass/Vol] 8.7 mg/dL Normal 8.5-10.1 [facility] Comment on above: Performed By: #### L TERRENCE VICTORIA, CMP ####[facility] Rdgktgrpjc5032[address] [place], [place] [address]Dr. Chrissy Frazier Chloride [Moles/Vol] 105 mmol/L Normal 98-107 [facility] Comment on above: Performed By: #### L TERRENCE VICTORIA, CMP ####[facility] Tyoftfjgdw048[address] [place], [place] [address]Dr. Chrissy Frazier CO2 [Moles/Vol] 22.6 mmol/L Normal 21.0-32.0 [facility] Comment on above: Performed By: #### L TERRENCE VICTORIA, CMP ####[facility] Vstfwwilji59[address] [place], [place] [address]Dr. Chrissy Frazier Creatinine [Mass/Vol] 1.11 mg/dL Normal 0.70-1.30 [facility] Comment on above: Performed By: #### L TERRENCE VICTORIA, CMP ####[facility] [address] [place] [id number]. Chrissy Frazier EGFR-AF WELSH >60 Normal >=60 [facility] Comment on above: Performed By: #### L TERRENCE VICTORIA, CMP ####[facility] Ldxtvfvbjn54[address] [place] [id number]. Chrissy Frazier EGFR-NON AF WELSH >60 Normal >=60 [facility] Comment on above: Performed By: #### L TERRENCE VICTORIA, CMP ####[facility] Ipatrbrsml1452 [place] [address]Dr. Chrissy Frazier Globulin (S) [Mass/Vol] 3.7 g/dL Normal [facility] Comment on above: Performed By: #### L TERRENCE VICTORIA, CMP ####[facility] Drolpyfpfz7[address] [place] [address]Dr. Chrissy Frazier Glucose [Mass/Vol] 121 mg/dL Critically high 74-106 [facility] Comment on above: Performed By: #### L TERRENCE VICTORIA, CMP ####[facility] Mwsypygyqa[address] [place] [address]Dr. Chrissy Frazier Potassium [Moles/Vol] 4.0 mmol/L Normal 3.5-5.1 [facility] Comment on above: Performed By: #### L TERRENCE VICTORIA, CMP ####[facility] [address]wlgnmwtm[address] [place] [address]Dr. Chrissy Frazier Protein [Mass/Vol] 7.4 g/dL Normal 6.4-8.2 [facility] Comment on above: Performed By: #### L TERRENCE VICTORIA, CMP ####[facility] Ehvfszupey[address] [place] [address]Dr. Chrissy Frazier Sodium [Moles/Vol] 138 mmol/L Normal 136-145 [facility] Comment on above: Performed By: #### L TERRENCE VCITORIA, CMP ####[facility] Yygvpssabn14[address] [place] [address]Dr. Chrissy Frazier Urea nitrogen [Mass/Vol] 6.0 mg/dL Critically low 7.0-18.0 [facility] Comment on above: Performed By: #### L IPA, TERRENCE, CMP ####[facility] Kvftvjtapo48[address] [place] [address]Dr. Chrissy Frazier Urea nitrogen/Creatinine [Mass ratio] 5.4 mg/mg Normal [facility] Comment on above: Performed By: #### L IPA, TERRENCE, CMP ####[facility] Fhfchapsft[address] [place] [address]Dr. Chrissy Frazier AMYLASEon 09-02-2022 Amylase [Catalytic activity/Vol] 29 U/L Normal 25-115 [facility] Comment on above: Performed By: #### A MY, CMP, LIPA ####[facility] Kxqgpvoqxl[address] [place], [place] [address]Dr. Chrissy Frazier CBC AUTO DIFFon 09-02-2022 BASO # 0.1 103/ul Normal 0.0-0.1 [facility] Comment on above: Performed By: #### C BC ####[facility] Wjdrbmqxcv98[address] [place], [place] [address]Dr. Chrissy Frazier Basophils/100 WBC (Bld) 0.4 % Normal 0.2-2.0 [facility] Comment on above: Performed By: #### C BC ####[facility] Hcrmltddfi69[address] [place], [place] [address]Dr. Chrissy Frazier EO # 0.1 103/ul Normal 0.0-0.7 [facility] Comment on above: Performed By: #### C BC ####[facility] Zgrgnpdnos7[address] [place], [place] [address]Dr. Chrissy Frazier Eosinophils/100 WBC (Bld) 0.7 % Critically low 0.9-7.0 [facility] Comment on above: Performed By: #### C BC ####[facility] Coebycwixc27[address] [place], [place] [address]Dr. Chrissy Frazier Erythrocyte distribution width (RBC) [Ratio] 13.7 % Normal 11.0-15.0 [facility] Comment on above: Performed By: #### C BC ####[facility] Shhqiadwpl23[address] [place], [place] [address]Dr. Chrissy Frazier Hematocrit (Bld) [Volume fraction] 48.3 % Normal 42.0-54.0 [facility] Comment on above: Performed By: #### C BC ####[facility] Fmzcfyrnhj[address] [place] [address]Dr. Chrissy Frazier Hemoglobin (Bld) [Mass/Vol] 16.0 g/dL Normal 14.0-18.0 [facility] Comment on above: Performed By: #### C BC ####[facility] Kjgzzibbor44[address] [place], [place] [address]Dr. Chrissy Frazier IG # 0.09 10e3/ul Critically high 0.00-0.03 [facility] Comment on above: Performed By: #### C BC ####[facility] Fzhzndabvy8318[address] [place], [place] [address]Dr. Chrissy Frazier IG % 0.5 % Normal 0.0-0.5 [facility] Comment on above: Performed By: #### C BC ####[facility] Cuvkmkaxxn4[address] [place], [place] [address]Dr. Chrissy Frazier LYMPH # 3.7 103/ul Normal 1.2-3.8 [facility] Comment on above: Performed By: #### C BC ####[facility] Nnowiwboxc2439[address] [place], [place] [address]Dr. Chrissy Frazier Lymphocytes/100 WBC (Bld) 21.5 % Normal 20.5-60.0 [facility] Comment on above: Performed By: #### C BC ####[facility] Xrvytaxttw695[address] [place], [place] [address]Dr. Chrissy Frazier MANUAL DIFF REQ NO Normal [facility] Comment on above: Performed By: #### C BC ####[facility] Mnarcyggym3301[address] [place], [place] [address]Dr. Chrissy Frazier MCH (RBC) [Entitic mass] 28.1 pg Normal 25.9-34.0 [facility] Comment on above: Performed By: #### C BC ####[facility] Qxlwikdncv659[address] [place], [place] [address]Dr. Chrissy Frazier MCHC (RBC) [Mass/Vol] 33.1 g/dL Normal 29.9-35.2 [facility] Comment on above: Performed By: #### C BC ####[facility] Ztqtulsegq86[address] [place] [address]DrNancy Chrissy Frazier MCV (RBC) [Entitic vol] 84.7 fL Normal 80.0-94.0 [facility] Comment on above: Performed By: #### C BC ####[facility] Mkcwluqwtr46[address] [place], [place] [address]DrNancy Frazier MONO # 0.7 103/ul Normal 0.3-0.8 [facility] Comment on above: Performed By: #### C BC ####[facility] Tjhziwaryf95[address] [place], [place] [address]DrNancy Frazier Monocytes/100 WBC (Bld) 4.2 % Normal 1.7-12.0 [facility] Comment on above: Performed By: #### C BC ####[facility] Aofngpukfj[address] [place], [place] [address]DrNancy Frazier NEUT # 12.4 103/ul Critically high 1.4-6.5 [facility] Comment on above: Performed By: #### C BC ####[facility] Slkjhqrssy430[address] [place], [place] [address]DrNancy Frazeir Neutrophils/100 WBC (Bld) 72.7 % Normal 43.0-75.0 [facility] Comment on above: Performed By: #### C BC ####[facility] Hjskmqiesl316[address] [place], [place] [address]DrNancy Frazier Platelet mean volume (Bld) [Entitic vol] 10.9 fL Normal 9.5-13.5 [facility] Comment on above: Performed By: #### C BC ####[facility] Axqalaflnd[address] [place], [place] [address]DrNancy Frazier PLT 386 103/ul Normal 150-450 [facility] Comment on above: Performed By: #### C BC ####[facility] Dcmffwugih767[address] [place], [place] [address]DrNancy Frazier RBC 5.70 106/ul Normal 4.70-6.10 [facility] Comment on above: Performed By: #### C BC ####[facility] [address]axef[address] [place] [phone]. Chrissy Frazier WBC 17.0 103/ul Critically high 4.0-11.0 [facility] Comment on above: Performed By: #### C BC ####[facility] Rafkjhmqyw220[address] [place] [phone]. Chrissy Frazier Covid-19 PCR (CVDTB)on 08-21 SARS-CoV-2 (COVID-19) RNA RHIANNON+probe Ql (Unsp spec) Not detected Normal NOT DETECTED [facility] Comment on above: Result Comment: When [...] for this test is supported by the [place] of Health and Human Service's declaration that [...] be used). Performed By: #### C VDTBH ####[facility] [address]dqdpkrk66[address] [place] [phone]. Chrissy Frazier LACTATE/LACTIC ACIDon 2021 Lactate [Moles/Vol] 7.1 mmol/L Critically high 0.4-1.9 [facility] Comment on above: Performed By: #### L ACT ####[facility] M[address]azmzmf4[address] [place] [phone]. Chrissy Frazier Lactate [Moles/Vol] 8.6 mmol/L Critically high 0.4-1.9 [facility] Comment on above: Performed By: #### L ACT ####[facility] Tmsxvyktie[address] [place] [address]Dr. Chrissy Frazier LIPASEon 09-02-2022 Lipase [Catalytic activity/Vol] 60.0 U/L Critically low 73.0-393.0 [facility] Comment on above: Performed By: #### A MY, CMP, LIPA ####[facility] Vaxrbjfvtm45[address] [place] [address]Dr. Chrissy Frazier POINT OF CARE GLUCOSEon 08-21 Glucose [Mass/Vol] 140 mg/dL Critically high 74-106 [facility] Comment on above: Performed By: #### P OCGLUC ####[facility] [address]lsxh[address] [place], [place] [address]Dr. Chrissy Frazier PROF 14(COMP METB)on 022 Albumin [Mass/Vol] 4.3 g/dL Normal 3.4-5.0 [facility] Comment on above: Performed By: #### A MY, CMP, LIPA ####[facility] Bruemcckbx[address] [place], [place] [address]Dr. Chrissy Frazier Albumin/Globulin [Mass ratio] 1.0 {ratio} Normal [facility] Comment on above: Performed By: #### A MY, CMP, LIPA ####[facility] Ovqypwbdgy47[address] [place] [address]Dr. Chrissy Frazier ALP [Catalytic activity/Vol] 82 U/L Normal 46-116 [facility] Comment on above: Performed By: #### A MY, CMP, LIPA ####[facility] Njezpyeaza64[address] [place] [address]Dr. Chrissy Frazier ALT [Catalytic activity/Vol] 48 U/L Normal 16-63 [facility] Comment on above: Performed By: #### A MY, CMP, LIPA ####[facility] Ngnifcyzdp9058 [place] [address]Dr. Chrissy Frazier Anion gap [Moles/Vol] 25.3 mmol/L Normal [facility] Comment on above: Performed By: #### A MY, CMP, LIPA ####[facility] Rroducmqic4126 [place] [address]Dr. Chirssy Frazier AST [Catalytic activity/Vol] 33 U/L Normal 15-37 [facility] Comment on above: Performed By: #### A MY, CMP, LIPA ####[facility] Kxciixzsqw1822 [place] [address]Dr. Chrissy Frazier Bilirubin [Mass/Vol] 0.7 mg/dL Normal 0.2-1.0 [facility] Comment on above: Performed By: #### A MY, CMP, LIPA ####[facility] Clqrkgpxno9912[address] [place], [place] [address]Dr. Chrissy Frazier Calcium [Mass/Vol] 9.5 mg/dL Normal 8.5-10.1 [facility] Comment on above: Performed By: #### A MY, CMP, LIPA ####[facility] Aamarlmgzx318[address] [place], [place] [address]Dr. Chrissy Frazier Chloride [Moles/Vol] 100 mmol/L Normal 98-107 [facility] Comment on above: Performed By: #### A MY, CMP, LIPA ####[facility] Edxzwkutwd764[address] [place], [place] [address]Dr. Chrissy Frazier CO2 [Moles/Vol] 14.2 mmol/L Critically low 21.0-32.0 [facility] Comment on above: Performed By: #### A MY, CMP, LIPA ####[facility] Ygaxrdocty397[address] [place], [place] [address]Dr. Chrissy Frazier Creatinine [Mass/Vol] 1.70 mg/dL Critically high 0.70-1.30 [facility] Comment on above: Performed By: #### A MY, CMP, LIPA ####[facility] Wplslftwyu94[address] [place], [place] [address]Dr. Chrissy Frazier EGFR-AF WELSH 57 mL/min/1.73m2 Critically low >=60 [facility] Comment on above: Performed By: #### A MY, CMP, LIPA ####[facility] [address]zqqrdij[address] [place] [address]Dr. Chrissy Frazier EGFR-NON AF WELSH 47 mL/min/1.73m2 Critically low >=60 [facility] Comment on above: Performed By: #### A MY, CMP, LIPA ####[facility] Eisdgcpikk69[address] [place] [address]Dr. Chrissy Frazier Globulin (S) [Mass/Vol] 4.2 g/dL Normal [facility] Comment on above: Performed By: #### A MY, CMP, LIPA ####[facility] Pccjlgtkvz[address] [place] [address]Dr. Chrissy Frazier Glucose [Mass/Vol] 212 mg/dL Critically high 74-106 [facility] Comment on above: Performed By: #### A MY, CMP, LIPA ####[facility] Nmxtqbytol8648 [place] [address]Dr. Chrissy Frazier Potassium [Moles/Vol] 3.5 mmol/L Normal 3.5-5.1 [facility] Comment on above: Performed By: #### A MY, CMP, LIPA ####[facility] Jvxzvjixiz3927 [place] [address]Dr. Chrissy Frazier Protein [Mass/Vol] 8.5 g/dL Critically high 6.4-8.2 [facility] Comment on above: Performed By: #### A MY, CMP, LIPA ####[facility] Iyxumthzrv8783 [place] [address]Dr. Chrissy Frazier Sodium [Moles/Vol] 136 mmol/L Normal 136-145 [facility] Comment on above: Performed By: #### A MY, CMP, LIPA ####[facility] Fpooxorxrc0551 [place] [address]Dr. Chrissy Frazier Urea nitrogen [Mass/Vol] 9.0 mg/dL Normal 7.0-18.0 [facility] Comment on above: Performed By: #### A MY, CMP, LIPA ####[facility] Heyoadlayb9155 [place] [address]Dr. Chrissy Frazier Urea nitrogen/Creatinine [Mass ratio] 5.3 mg/mg Normal [facility] Comment on above: Performed By: #### A MY, CMP, LIPA ####[facility] Kvuowwwsmz6255 [place] [address]Dr. Chrissy Frazier AMYLASEon 07-07-2022 Amylase [Catalytic activity/Vol] 33 U/L Normal 25-115 [facility] Comment on above: Performed By: #### C MP, TERRENCE, BNP, LIPA ####[facility] Lpjbtnmmgt139[address] [place], [place] [address]Dr. Chrissy Frazier BNPon 07-07-2022 Natriuretic peptide B (Bld) [Mass/Vol] 29.0 pg/mL Normal <=450.0 [facility] Comment on above: Performed By: #### C MP, TERRENCE, BNP, LIPA ####[facility] Tnlndhmolz[address] [place], [place] [address]Dr. Chrissy Frazier CBC AUTO DIFFon 07-07-2022 BASO # 0.0 103/ul Normal 0.0-0.1 [facility] Comment on above: Performed By: #### C BC ####[facility] Eqqosxzxen5410[address] [place], [place] [address]Dr. Chrissy Frazier Basophils/100 WBC (Bld) 0.4 % Normal 0.2-2.0 [facility] Comment on above: Performed By: #### C BC ####[facility] Yxodqaayqp595[address] [place], [place] [address]Dr. Chrissy Frazier EO # 0.3 103/ul Normal 0.0-0.7 [facility] Comment on above: Performed By: #### C BC ####[facility] Bpwldbqdrj318[address] [place], [place] [address]Dr. Chrissy Frazier Eosinophils/100 WBC (Bld) 3.0 % Normal 0.9-7.0 [facility] Comment on above: Performed By: #### C BC ####[facility] Uillpxvuwt38[address] [place], [place] [address]Dr. Chrissy Frazier Erythrocyte distribution width (RBC) [Ratio] 14.0 % Normal 11.0-15.0 [facility] Comment on above: Performed By: #### C BC ####[facility] Uhrtxlrwab5237 [place] [address]Dr. Chrissy Frazier Hematocrit (Bld) [Volume fraction] 42.8 % Normal 42.0-54.0 [facility] Comment on above: Performed By: #### C BC ####[facility] Ttczyrcsup0029 [place] [address]Dr. Tishrowan Frazier Hemoglobin (Bld) [Mass/Vol] 14.3 g/dL Normal 14.0-18.0 [facility] Comment on above: Result Comment: IV F LUIDS RUNNING Performed By: #### C BC ####[facility] Dmjukfjtjy47[address] [place], [place] [address]Dr. Chrissy Frazier IG # 0.05 10e3/ul Critically high 0.00-0.03 [facility] Comment on above: Performed By: #### C BC ####[facility] Kerrvwscev4540[address] [place], [place] [address]Dr. Chrissy Frazier IG % 0.5 % Normal 0.0-0.5 [facility] Comment on above: Performed By: #### C BC ####[facility] Kcidmougdp5906 [place] [address]Dr. Chrissy Frazier LYMPH # 2.4 103/ul Normal 1.2-3.8 [facility] Comment on above: Performed By: #### C BC ####[facility] Egzytvkhzi[address] [place], [place] [address]Dr. Chrissy Frazier Lymphocytes/100 WBC (Bld) 25.5 % Normal 20.5-60.0 [facility] Comment on above: Performed By: #### C BC ####[facility] Yoswtocmmf4363 [place] [address]Dr. Chrissy Frazier MANUAL DIFF REQ NO Normal [facility] Comment on above: Performed By: #### C BC ####[facility] Gbfudjggrg32[address] [place] [address]Dr. Chrissy Frazier MCH (RBC) [Entitic mass] 28.5 pg Normal 25.9-34.0 [facility] Comment on above: Performed By: #### C BC ####[facility] Uahpmageao5591 [place] [id number]. Tishrowan Frazier MCHC (RBC) [Mass/Vol] 33.4 g/dL Normal 29.9-35.2 [facility] Comment on above: Performed By: #### C BC ####[facility] Sftwzquvcy1471 [place] [id number]. Chrissy Frazier MCV (RBC) [Entitic vol] 85.3 fL Normal 80.0-94.0 [facility] Comment on above: Performed By: #### C BC ####[facility] Awixmnsils25[address] [place], [place] [address]Dr. Chrissy Frazier MONO # 0.7 103/ul Normal 0.3-0.8 [facility] Comment on above: Performed By: #### C BC ####[facility] Dxzwrlqtsy93[address] [place], [place] [address]Dr. Chrissy Frazier Monocytes/100 WBC (Bld) 7.8 % Normal 1.7-12.0 [facility] Comment on above: Performed By: #### C BC ####[facility] Ibexkslmdi864[address] [place], [place] [address]Dr. Chrissy Frazier NEUT # 5.8 103/ul Normal 1.4-6.5 [facility] Comment on above: Performed By: #### C BC ####[facility] Bdjjjunpqq4260[address] [place], [place] [address]Dr. Chrissy Frazier Neutrophils/100 WBC (Bld) 62.8 % Normal 43.0-75.0 [facility] Comment on above: Performed By: #### C BC ####[facility] Nbrxdfbzaj097[address] [place], [place] [address]Dr. Chrissy Frazier Platelet mean volume (Bld) [Entitic vol] 10.8 fL Normal 9.5-13.5 [facility] Comment on above: Performed By: #### C BC ####[facility] Qyikzsqjqx353[address] [place], [place] [address]Dr. Chrissy Frazier PLT 310 103/ul Normal 150-450 [facility] Comment on above: Performed By: #### C BC ####[facility] Fyukylvoyq8308 [place] [phone]. Chrissy Freddie RBC 5.02 106/ul Normal 4.70-6.10 [facility] Comment on above: Performed By: #### C BC ####[facility] Kvznpsrhjg8122 [place] [phone]. Chrissy Freddie WBC 9.3 103/ul Normal 4.0-11.0 [facility] Comment on above: Performed By: #### C BC ####[facility] Kkofmjosou6318 [place] [phone]. Chrissy Frazier CULTURE URINEon 07-07-2022 CULTURE URINE Culture Observations: NO GROWTH. Normal [facility] Comment on above: Performed By: #### U RCX ####[facility] Uavyhmppbh[address] [place], [place] [address]Dr. Chrissy Frazier DRUG SCREEN RAPID (URINE)on 07-07-2022 AMP Negative Normal NEGATIVE [facility] Comment on above: Performed By: #### D RUGRPD ####[facility] Mgnnfqqryd2813 [place] [phone]. Chrissy Frazier BAR Negative Normal NEGATIVE [facility] Comment on above: Performed By: #### D RUGRPD ####[facility] Dkgrczpbia4362 [place] [phone]. Chrissy Frazier BUP Negative Normal NEGATIVE [facility] Comment on above: Performed By: #### D RUGRPD ####[facility] Lehnxdxqah4[address] [place] [address]Dr. Chrissy Frazier BZO Positive Abnormal NEGATIVE [facility] Comment on above: Performed By: #### D RUGRPD ####[facility] Totupphaci6582 [place] [address]Dr. Chrissy Frazier LAUREN Negative Normal NEGATIVE [facility] Comment on above: Performed By: #### D RUGRPD ####[facility] Rtvdliepgv3552 [place] [phone]. Chrissy Frazier CUT-OFFS SEE BELOW Normal [facility] Comment on above: Result Comment: AMP (Amphetamine): 500ng/mL, BAR (Barbituates): 200 ng/mL, BZO (Benzodiazepines): 150 ng/mL, BUP (Buprenorphine): 10 ng/mL, LAUREN (Cocaine): 150 ng/mL, mAMP (Methamphetamine): 500 ng/mL, MTD (Methadone): 200 ng/mL, OPI (Opiates): 100 ng/mL, OXY (Oxycodone): 100 ng/mL, PCP (Phencyclidine): 25 ng/mL, PPX (Propoxyphene): 300 ng/mL, THC (Cannabinoids): 50 ng/mL, TCA (Trycyclic Antidepressants): 300 ng/mL Performed By: #### D RUGRPD ####[facility] Zjaetscrbd9[address] [place], [place] [address]Dr. [facility] DRUG CUT HEADER DRUG CLASS TEST SYSTEM CUT-OFF CONCENTRATIONS ARE FOLLOWS: Normal [facility] Comment on above: Performed By: #### D RUGRPD ####[facility] Molwyrmqgb[address] [place], [place] [address]Dr. Chrissy Frazier mAMP Negative Normal NEGATIVE [facility] Comment on above: Performed By: #### D RUGRPD ####[facility] Buofqrnkhl[address] [place], [place] [address]Dr. Tishrowan [facility] MTD Negative Normal NEGATIVE [facility] Comment on above: Performed By: #### D RUGRPD ####[facility] Nldkzofnko416[address] [place], [place] [address]Dr. [facility] OPI Negative Normal NEGATIVE [facility] Comment on above: Performed By: #### D RUGRPD ####[facility] S[address]jisvcflt[address] [place], [place] [address]Dr. Chrissy Frazier OXY Negative Normal NEGATIVE [facility] Comment on above: Performed By: #### D RUGRPD ####[facility] Pxwjemziwl[address] [place], [place] [address]Dr. Tishrowan [facility] PCP Negative Normal NEGATIVE [facility] Comment on above: Performed By: #### D RUGRPD ####[facility] Xjfsgyyqgu[address] [place], [place] [address]Dr. Chrissy [facility] PPX Negative Normal NEGATIVE [facility] Comment on above: Performed By: #### D RUGRPD ####[facility] Ljrgqwcfrw73[address] [place] [address]Dr. Chrissy Frazier TCA Positive Abnormal NEGATIVE [facility] Comment on above: Performed By: #### D RUGRPD ####[facility] Eygnjuffql3174 [place] [address]Dr. Chrissy Frazier THC Positive Abnormal NEGATIVE [facility] Comment on above: Performed By: #### D RUGRPD ####[facility] Etgupeuyic0861 [place] [address]Dr. Chrissy Frazier LIPASEon 07-07-2022 Lipase [Catalytic activity/Vol] 118.0 U/L Normal 73.0-393.0 [facility] Comment on above: Performed By: #### L IPA ####[facility] Uaeiplhhfn[address] [place], [place] [address]Dr. Chrissy Frazier Lipase [Catalytic activity/Vol] 114.0 U/L Normal 73.0-393.0 [facility] Comment on above: Performed By: #### C MP, TERRENCE, BNP, LIPA ####[facility] Hleumuyjtb[address] [place] [address]Dr. Chrissy Frazier PROF 14(COMP METB)on 022 Albumin [Mass/Vol] 3.4 g/dL Normal 3.4-5.0 [facility] Comment on above: Performed By: #### C MP, TERRENCE, BNP, LIPA ####[facility] Ueltzfzieu[address] [place] [address]Dr. Chrissy Frazier Albumin/Globulin [Mass ratio] 1.1 {ratio} Normal [facility] Comment on above: Performed By: #### C MP, TERRENCE, BNP, LIPA ####[facility] [address]fwvkcduo[address] [place] [address]Dr. Chrissy Frazier ALP [Catalytic activity/Vol] 68 U/L Normal 46-116 [facility] Comment on above: Performed By: #### C MP, TERRENCE, BNP, LIPA ####[facility] Udggncqhmv6[address] [place] [address]Dr. Chrissy Frazier ALT [Catalytic activity/Vol] 93 U/L Critically high 16-63 [facility] Comment on above: Performed By: #### C MP, TERRENCE, BNP, LIPA ####[facility] Ookabwhfin[address] [place] [address]Dr. Chrissy Frazier Anion gap [Moles/Vol] 14.4 mmol/L Normal [facility] Comment on above: Performed By: #### C MP, TERRENCE, BNP, LIPA ####[facility] Gkrhokxjjl350[address] [place] [address]Dr. Chrissy Frazier AST [Catalytic activity/Vol] 33 U/L Normal 15-37 [facility] Comment on above: Performed By: #### C MP, TERRENCE, BNP, LIPA ####[facility] Zuijvnyvkx5[address] [place] [address]Dr. Chrissy Frazier Bilirubin [Mass/Vol] 0.9 mg/dL Normal 0.2-1.0 [facility] Comment on above: Performed By: #### C MP, TERRENCE, BNP, LIPA ####[facility] Ujthrmmlac[address] [place] [address]Dr. Chrissy Frazier Calcium [Mass/Vol] 8.2 mg/dL Critically low 8.5-10.1 Th [facility] Comment on above: Performed By: #### C MP, TERRENCE, BNP, LIPA ####[facility] Znlxxbonuu[address] [place], [place] [address]Dr. Chrissy Frazier Chloride [Moles/Vol] 103 mmol/L Normal 98-107 [facility] Comment on above: Performed By: #### C MP, TERRENCE, BNP, LIPA ####[facility] Rbyjwwjsrc[address] [place] [address]Dr. Chrissy Frazier CO2 [Moles/Vol] 22.9 mmol/L Normal 21.0-32.0 [facility] Comment on above: Performed By: #### C MP, TERRENCE, BNP, LIPA ####[facility] Okrzdtvaie[address] [place], [place] [address]Dr. Chrissy Frazier Creatinine [Mass/Vol] 1.07 mg/dL Normal 0.70-1.30 [facility] Comment on above: Performed By: #### C MP, TERRENCE, BNP, LIPA ####[facility] Llurcxispg3[address] [place] [address]Dr. Chrissy Frazier EGFR-AF WELSH >60 Normal >=60 [facility] Comment on above: Performed By: #### C MP, TERRENCE, BNP, LIPA ####[facility] Eqwjocsclb8075 [place] [address]Dr. Tishlan Frazier EGFR-NON AF WELSH >60 Normal >=60 [facility] Comment on above: Performed By: #### C MP, TERRENCE, BNP, LIPA ####[facility] Mdznxbcuqy4781 [place] [address]Dr. Chrissy Frazier Globulin (S) [Mass/Vol] 3.2 g/dL Normal [facility] Comment on above: Performed By: #### C MP, TERRENCE, BNP, LIPA ####[facility] Vsafwruvvb[address] [place], [place] [address]Dr. Chrissy Frazier Glucose [Mass/Vol] 96 mg/dL Normal 74-106 [facility] Comment on above: Performed By: #### C MP, TERRENCE, BNP, LIPA ####[facility] Pvwcusmxyv5[address] [place] [address]Dr. Chrissy Frazier Potassium [Moles/Vol] 3.3 mmol/L Critically low 3.5-5.1 [facility] Comment on above: Performed By: #### C MP, TERRENCE, BNP, LIPA ####[facility] Skuyzcmhgs07[address] [place] [address]Dr. Chrissy Frazier Protein [Mass/Vol] 6.6 g/dL Normal 6.4-8.2 [facility] Comment on above: Performed By: #### C MP, TERRENCE, BNP, LIPA ####[facility] Teicpkycyn69[address] [place] [address]Dr. Chrissy Frazier Sodium [Moles/Vol] 137 mmol/L Normal 136-145 [facility] Comment on above: Performed By: #### C MP, TERRENCE, BNP, LIPA ####[facility] Ytatkixnse5[address] [place] [address]Dr. Chrissy Frazier Urea nitrogen [Mass/Vol] 13.0 mg/dL Normal 7.0-18.0 [facility] Comment on above: Performed By: #### C MP, TERRENCE, BNP, LIPA ####[facility] Lshizqnaux[address] [place] [address]Dr. Chrissy Frazier Urea nitrogen/Creatinine [Mass ratio] 12.1 mg/mg Normal [facility] Comment on above: Performed By: #### C MP, TERRENCE, BNP, LIPA ####[facility] Nmnalfyyit7294 [place] [address]Dr. Chrissy Frazier UA RANDOM W/MICROSCOPICon BACTERIA TRACE Abnormal NONE SEEN [facility] Comment on above: Performed By: #### U AMIC ####[facility] Mzlyxlhglw154[address] [place], [place] [address]Dr. Chrissy Frazier Bilirubin Ql (U) Negative Normal NEGATIVE [facility] Comment on above: Performed By: #### U AMIC ####[facility] Roecbyrxih94[address] [place], [place] [address]Dr. Chrissy Frazier CAST NONE SEEN Normal NONE SEEN [facility] Comment on above: Performed By: #### U AMIC ####[facility] Rikazvreml4131 [place] [address]Dr. Chrissy Frazier Clarity (U) CLEAR Normal CLEAR [facility] Comment on above: Performed By: #### U AMIC ####[facility] Ulqrceccfc9[address] [place], [place] [address]Dr. Chrissy Frazier Color (U) YELLOW Normal YELLOW [facility] Comment on above: Performed By: #### U AMIC ####[facility] Sdxclnrrcq[address] [place], [place] [address]Dr. Chrissy Frazier Crystals LM Nom (Urine sed) SEEN Abnormal NONE SEEN [facility] Comment on above: Performed By: #### U AMIC ####[facility] Awrtqfpzif659[address] [place], [place] [address]Dr. Chrissy Frazier Epithelial cells LM Ql (Urine sed) RARE Normal NONE SEEN /RARE [facility] Comment on above: Performed By: #### U AMIC ####[facility] Whmzwdwyhq79[address] [place] [address]Dr. Tishrowan Freddie Glucose Ql (U) Negative Normal NEGATIVE [facility] Comment on above: Performed By: #### U AMIC ####[facility] Mfcjhaurea5604 [place] [address]Dr. Chrissy Frazier Hemoglobin Ql (U) Negative Normal NEGATIVE [facility] Comment on above: Performed By: #### U AMIC ####[facility] Mvbuelwdbg3909 [place] [address]Dr. Chrissy Frazier Ketones Ql (U) 15 mg/dl Abnormal NEGATIVE [facility] Comment on above: Performed By: #### U AMIC ####[facility] Ihrhyirvsr9775 [place] [address]Dr. Chrissy Frazier LEUKOCYTES Negative Normal NEGATIVE [facility] Comment on above: Performed By: #### U AMIC ####[facility] Uhnqzkihbe[address] [place], [place] [address]Dr. Tishrowan Freddie MUCOUS NONE SEEN Normal NONE SEEN [facility] Comment on above: Performed By: #### U AMIC ####[facility] Tegmabfbhx[address] [place], [place] [address]Dr. Chrissy Frazier Nitrite Ql (U) Negative Normal NEGATIVE [facility] Comment on above: Performed By: #### U AMIC ####[facility] Qvzzvksuqk177[address] [place], [place] [address]Dr. Chrissy Frazier pH (U) 6.0 [pH] Normal 5-9 [facility] Comment on above: Performed By: #### U AMIC ####[facility] Mugawtjaxs5026[address] [place], [place] [address]Dr. Chrissy Frazier RBC 0-2 Normal 0-2 [facility] Comment on above: Performed By: #### U AMIC ####[facility] Dqdwpipljk5691 [place] [address]Dr. Chrissy Frazier SPEC GRAVITY 1.015 Normal 1.005-<=1.025 [facility] Comment on above: Performed By: #### U AMIC ####[facility] Ixvokaxjfz20[address] [place] [address]Dr. Chrissy Frazier UA PROTEIN Negative Normal NEGATIVE/ TRACE [facility] Comment on above: Performed By: #### U AMIC ####[facility] Cxgdpxjatk1837 [place] [id number]. Chrissy Frazier URIC ACID CRYSTALS RARE Normal [facility] Comment on above: Performed By: #### U AMIC ####[facility] Ycwtbhtzdc9554 [place] [address]Dr. Chrissy Frazier Urobilinogen Qn (U) 0.2 {Estrellita'U}/dL Normal 0.2 - 1. 0 [facility] Comment on above: Performed By: #### U AMIC ####[facility] Kyipowgpqq5[address] [place] [address]Dr. Chrissy Frazier WBC 0-2 Abnormal NONE SEEN [facility] Comment on above: Performed By: #### U AMIC ####[facility] Ekhvvrndca3036 [place] [address]Dr. Chrissy Frazier AMYLASEon 07-06-2022 Amylase [Catalytic activity/Vol] 37 U/L Normal 25-115 [facility] Comment on above: Performed By: #### C MP, LIPA, TERRENCE ####[facility] Jxaubsxrdn7865 [place] [address]Dr. Chrissy Frazier CBC AUTO DIFFon 07-06-2022 BASO # 0.1 103/ul Normal 0.0-0.1 [facility] Comment on above: Performed By: #### C BC ####[facility] Bnabcipqcl[address] [place], [place] [address]Dr. Chrissy Frazier Basophils/100 WBC (Bld) 0.4 % Normal 0.2-2.0 [facility] Comment on above: Performed By: #### C BC ####[facility] Odvjwbnoqu8[address] [place], [place] [address]Dr. Chrissy Frazier EO # 0.1 103/ul Normal 0.0-0.7 [facility] Comment on above: Performed By: #### C BC ####[facility] Yrabuiunrb[address] [place] [phone]. Chrissy Frazier Eosinophils/100 WBC (Bld) 0.5 % Critically low 0.9-7.0 [facility] Comment on above: Performed By: #### C BC ####[facility] Seufwtvtdc2418 [place] [phone]. Chrissy Frazier Erythrocyte distribution width (RBC) [Ratio] 13.6 % Normal 11.0-15.0 [facility] Comment on above: Performed By: #### C BC ####[facility] Ywqdjmameq8768 [place] [phone]. Chrissy Frazier Hematocrit (Bld) [Volume fraction] 47.9 % Normal 42.0-54.0 [facility] Comment on above: Performed By: #### C BC ####[facility] Qanpislyil347[address] [place], [place] [address]Dr. Chrissy Frazier Hemoglobin (Bld) [Mass/Vol] 16.4 g/dL Normal 14.0-18.0 [facility] Comment on above: Performed By: #### C BC ####[facility] Zmyzzhjqkt38[address] [place], [place] [address]Dr. Chrissy Frazier IG # 0.09 10e3/ul Critically high 0.00-0.03 [facility] Comment on above: Performed By: #### C BC ####[facility] Gnbevxzskk7335 [place] [address]Dr. Chrissy Frazier IG % 0.6 % Critically high 0.0-0.5 [facility] Comment on above: Performed By: #### C BC ####[facility] Yhkxctftnz[address] [place], [place] [address]Dr. Chrissy Frazier LYMPH # 2.5 103/ul Normal 1.2-3.8 [facility] Comment on above: Performed By: #### C BC ####[facility] Pjkdglweyg0986 [place] [phone]. Chrissy Frazier Lymphocytes/100 WBC (Bld) 16.7 % Critically low 20.5-60.0 [facility] Comment on above: Performed By: #### C BC ####[facility] Ademhujzqq70[address] [place] [address]Dr. Chrissy Frazier MANUAL DIFF REQ NO Normal [facility] Comment on above: Performed By: #### C BC ####[facility] Qigkqyhjkt0385 [place] [phone]. Chrissy Frazier MCH (RBC) [Entitic mass] 28.1 pg Normal 25.9-34.0 [facility] Comment on above: Performed By: #### C BC ####[facility] Zuzpyewesz8902 [place] [address]Dr. Chrissy Frazier MCHC (RBC) [Mass/Vol] 34.2 g/dL Normal 29.9-35.2 [facility] Comment on above: Performed By: #### C BC ####[facility] Zybxuzwcpi[address] [place], [place] [address]Dr. Chrissy Frazier MCV (RBC) [Entitic vol] 82.2 fL Normal 80.0-94.0 [facility] Comment on above: Performed By: #### C BC ####[facility] Ewsgeunglo94[address] [place], [place] [address]Dr. Chrissy Frazier MONO # 1.0 103/ul Critically high 0.3-0.8 [facility] Comment on above: Performed By: #### C BC ####[facility] Tprdijlucd50[address] [place], [place] [address]Dr. Chrissy Frazier Monocytes/100 WBC (Bld) 6.7 % Normal 1.7-12.0 [facility] Comment on above: Performed By: #### C BC ####[facility] Dcsftpswrx68[address] [place], [place] [address]DrNancy Frazier NEUT # 11.3 103/ul Critically high 1.4-6.5 [facility] Comment on above: Performed By: #### C BC ####[facility] Psxpzjnivy314[address] [place], [place] [address]DrNancy Frazier Neutrophils/100 WBC (Bld) 75.1 % Critically high 43.0-75.0 [facility] Comment on above: Performed By: #### C BC ####[facility] Wzctsddltv0414 [place] [phone]. Chrissy Frazier Platelet mean volume (Bld) [Entitic vol] 10.6 fL Normal 9.5-13.5 [facility] Comment on above: Performed By: #### C BC ####[facility] Ttsklqkcym9500 [place] [phone]. Chrissy Frazier PLT 416 103/ul Normal 150-450 [facility] Comment on above: Performed By: #### C BC ####[facility] Tifrtegbfl4906 [place], [place] [address]Fu. Chrissy Frazier RBC 5.83 106/ul Normal 4.70-6.10 [facility] Comment on above: Performed By: #### C BC ####[facility] Gfklfaljlw1402 [place] [phone]. Chrissy Frazier WBC 15.0 103/ul Critically high 4.0-11.0 [facility] Comment on above: Performed By: #### C BC ####[facility] Taurgjybkn04[address] [place], [place] [address]Io. Chrissy Frazier Covid-19 PCR ([facility])on 06-21 SARS-CoV-2 (COVID-19) RNA RHIANNON+probe Ql (Unsp spec) Not detected Normal NOT DETECTED [facility] Comment on above: Result Comment: When [...] for this test is supported by the [employer] of Health and Human Service's declaration that [...] be used). Performed By: #### C VDTBH ####[facility] Afddbzkhgw0853 [place] [address]Dr. Chrissy Frazier LIPASEon 07-06-2022 Lipase [Catalytic activity/Vol] 130.0 U/L Normal 73.0-393.0 [facility] Comment on above: Performed By: #### C MP, LIPA, TERRENCE ####[facility] Jcoiaofogp6759 [place] [address]Dr. Chrissy Frzaier PROF 14(COMP METB)on 022 Albumin [Mass/Vol] 4.4 g/dL Normal 3.4-5.0 [facility] Comment on above: Performed By: #### C MP, LIPA, TERRENCE ####[facility] Aamwgwgfjj[address] [place], [place] [address]Dr. Chrissy Frazier Albumin/Globulin [Mass ratio] 1.1 {ratio} Normal [facility] Comment on above: Performed By: #### C MP, LIPA, TERRENCE ####[facility] F[address]qqbxhyzs[address] [place], [place] [address]Dr. Chrissy Frazier ALP [Catalytic activity/Vol] 83 U/L Normal 46-116 [facility] Comment on above: Performed By: #### C MP, LIPA, TERRENCE ####[facility] Sccajfnptw[address] [place], [place] [address]Dr. Chrissy Frazier ALT [Catalytic activity/Vol] 107 U/L Critically high 16-63 [facility] Comment on above: Performed By: #### C MP, LIPA, TERRENCE ####[facility] Ozctqdcnkz67[address] [place], [place] [address]Dr. Chrissy Frazier Anion gap [Moles/Vol] 20.5 mmol/L Normal [facility] Comment on above: Performed By: #### C MP, LIPA, TERRENCE ####[facility] Kfuqwdyprl956[address] [place], [place] [address]Dr. Chrissy Frazier AST [Catalytic activity/Vol] 46 U/L Critically high 15-37 [facility] Comment on above: Performed By: #### C OSWALD ADAIR TERRENCE ####[facility] Bgcrajfofd4241 [place] [address]Dr. Chrissy Frazier Bilirubin [Mass/Vol] 1.2 mg/dL Critically high 0.2-1.0 [facility] Comment on above: Performed By: #### C OSWALD ADAIR, TERRENCE ####[facility] Rijbhetsil97[address] [place], [place] [address]Dr. Chrissy Frazier Calcium [Mass/Vol] 9.1 mg/dL Normal 8.5-10.1 [facility] Comment on above: Performed By: #### C OSWALD ADAIR, TERRENCE ####[facility] Lbwdyaaomi144[address] [place], [place] [address]Dr. Chrissy Frazier Chloride [Moles/Vol] 100 mmol/L Normal 98-107 [facility] Comment on above: Performed By: #### C OSWALD ADAIR, TERRENCE ####[facility] Htoderjvqb[address] [place], [place] [address]Dr. Chrissy Frazier CO2 [Moles/Vol] 18.6 mmol/L Critically low 21.0-32.0 [facility] Comment on above: Performed By: #### C OSWALD ADAIR, TERRENCE ####[facility] Lpfifxsaaf[address] [place], [place] [address]Dr. Chrissy Frazier Creatinine [Mass/Vol] 1.44 mg/dL Critically high 0.70-1.30 [facility] Comment on above: Performed By: #### C OSWALD ADAIR, TERRENCE ####[facility] Vevgwleeoi137[address] [place], [place] [address]Dr. Chrissy Frazier EGFR-AF WELSH >60 Normal >=60 [facility] Comment on above: Performed By: #### C OSWALD ADAIR, TERRENCE ####[facility] Erzwhtrmbi9763 [place] [address]Dr. Chrissy Frazier EGFR-NON AF WELSH 57 mL/min/1.73m2 Critically low >=60 [facility] Comment on above: Performed By: #### C OSWALD ADAIR, TERRENCE ####[facility] Ckczzclxkq6314 [place] [address]Dr. Chrissy Frazier Globulin (S) [Mass/Vol] 4.0 g/dL Normal [facility] Comment on above: Performed By: #### C MP, LIPA, TERRENCE ####[facility] Qtzoggoizb9406 [place] [address]Dr. Chrissy Frazier Glucose [Mass/Vol] 117 mg/dL Critically high 74-106 [facility] Comment on above: Performed By: #### C MP, LIPA, TERRENCE ####[facility] Hsymgwqiqt3781 [place] [address]Dr. Chrissy Frazier Potassium [Moles/Vol] 3.1 mmol/L Critically low 3.5-5.1 [facility] Comment on above: Performed By: #### C MP, LIPA, TERRENCE ####[facility] Gxhmyvpbjr4088 [place] [address]Dr. Chrissy Frazier Protein [Mass/Vol] 8.4 g/dL Critically high 6.4-8.2 [facility] Comment on above: Performed By: #### C MP, LIPA, TERRENCE ####[facility] [address]ildythheu[address] [place], [place] [address]Dr. Chrissy Frazier Sodium [Moles/Vol] 136 mmol/L Normal 136-145 [facility] Comment on above: Performed By: #### C MP, LIPA, TERRENCE ####[facility] Ulmfdefwps5299 [place] [address]Dr. Chrissy Frazier Urea nitrogen [Mass/Vol] 15.0 mg/dL Normal 7.0-18.0 [facility] Comment on above: Performed By: #### C MP, LIPA, TERRENCE ####[facility] Mgikfuuuop16[address] [place], [place] [address]Dr. Chrissy Frazier Urea nitrogen/Creatinine [Mass ratio] 10.4 mg/mg Normal [facility] Comment on above: Performed By: #### C MP, LIPA, TERRENCE ####[facility] Tsarmvqxpp2564 [place] [address]Dr. Chrissy Frazier CBC AUTO DIFFon 07-05-2022 BASO # 0.0 103/ul Normal 0.0-0.1 [facility] Comment on above: Performed By: #### C BC ####[facility] Ykjocnwuac9136 [place] [phone]. Chrissy Frazier Basophils/100 WBC (Bld) 0.3 % Normal 0.2-2.0 [facility] Comment on above: Performed By: #### C BC ####[facility] Eezxufprqu9536 [place] [phone]. Chrissy Freddie EO # 0.2 103/ul Normal 0.0-0.7 [facility] Comment on above: Performed By: #### C BC ####[facility] Gtlkclndrx0538 [place] [address]Dr. Chrissy Freddie Eosinophils/100 WBC (Bld) 1.5 % Normal 0.9-7.0 [facility] Comment on above: Performed By: #### C BC ####[facility] Wvqirnmfts8302 [place] [address]Dr. Chrissy Frazier Erythrocyte distribution width (RBC) [Ratio] 13.9 % Normal 11.0-15.0 [facility] Comment on above: Performed By: #### C BC ####[facility] Suqpednpci6374 [place] [phone]. Chrissy Frazier Hematocrit (Bld) [Volume fraction] 44.5 % Normal 42.0-54.0 [facility] Comment on above: Performed By: #### C BC ####[facility] Oouzvyempu5071 [place] [phone]. Chrissy Frazier Hemoglobin (Bld) [Mass/Vol] 14.8 g/dL Normal 14.0-18.0 [facility] Comment on above: Performed By: #### C BC ####[facility] Zxxufbueba6569 [place] [phone]. Chrissy Freddie IG # 0.05 10e3/ul Critically high 0.00-0.03 [facility] Comment on above: Performed By: #### C BC ####[facility] Gxmkxmdalc8734 [place] [phone]. Tishrowan Frazier IG % 0.4 % Normal 0.0-0.5 [facility] Comment on above: Performed By: #### C BC ####[facility] Vxrltubyva8746 [place] [address]Dr. Chrissy Freddie LYMPH # 3.3 103/ul Normal 1.2-3.8 [facility] Comment on above: Performed By: #### C BC ####[facility] Cmcrkdttbj3316 [place] [address]Dr. Tishrowan Frazier Lymphocytes/100 WBC (Bld) 29.1 % Normal 20.5-60.0 [facility] Comment on above: Performed By: #### C BC ####[facility] Sziwfxtwtq9820 [place] [address]Dr. Tishrowan Frazier MANUAL DIFF REQ NO Normal [facility] Comment on above: Performed By: #### C BC ####[facility] Frafltmxzm7731 [place] [address]Dr. Chrissy Freddie MCH (RBC) [Entitic mass] 28.2 pg Normal 25.9-34.0 [facility] Comment on above: Performed By: #### C BC ####[facility] [address]azuvoad[address] [place], [place] [address]Dr. Chrissy Freddie MCHC (RBC) [Mass/Vol] 33.3 g/dL Normal 29.9-35.2 [facility] Comment on above: Performed By: #### C BC ####[facility] [address]oyfktaj[address] [place], [place] [address]Dr. Tishrowan Frazier MCV (RBC) [Entitic vol] 84.9 fL Normal 80.0-94.0 [facility] Comment on above: Performed By: #### C BC ####[facility] K[address]bxvwjf15[address] [place], [place] [address]Dr. Chrissy Frazier MONO # 0.6 103/ul Normal 0.3-0.8 [facility] Comment on above: Performed By: #### C BC ####[facility] [address]pcbywnc[address] [place], [place] [address]Dr. Chrissy Frazier Monocytes/100 WBC (Bld) 5.4 % Normal 1.7-12.0 [facility] Comment on above: Performed By: #### C BC ####[facility] Wwumbzssgj2779 [place] [id number]. Chrissy Frazier NEUT # 7.1 103/ul Critically high 1.4-6.5 [facility] Comment on above: Performed By: #### C BC ####[facility] Ruxvxgklpv8737 [place] [address]Dr. Chrissy Frazier Neutrophils/100 WBC (Bld) 63.3 % Normal 43.0-75.0 [facility] Comment on above: Performed By: #### C BC ####[facility] Iwhaxiylxz8481 [place] [address]Dr. Chrissy Frazier Platelet mean volume (Bld) [Entitic vol] 9.9 fL Normal 9.5-13.5 [facility] Comment on above: Performed By: #### C BC ####[facility] Rxycwrfnyd9515 [place] [address]Dr. Chrissy Frazier PLT 339 103/ul Normal 150-450 [facility] Comment on above: Performed By: #### C BC ####[facility] Hknnxkvrmc4807 [place] [address]Dr. Chrissy Frazier RBC 5.24 106/ul Normal 4.70-6.10 [facility] Comment on above: Performed By: #### C BC ####[facility] Crbsunvbzz8541 [place] [phone]. Chrissy Frazier WBC 11.2 103/ul Critically high 4.0-11.0 [facility] Comment on above: Performed By: #### C BC ####[facility] Sbvdepmuor2008 [place] [address]Dr. Chrissy Freddie PROF 14(COMP METB)on 022 Albumin [Mass/Vol] 3.8 g/dL Normal 3.4-5.0 [facility] Comment on above: Performed By: #### C MP ####[facility] Juhfwhqech1019 [place] [address]Dr. Chrissy Freddie Albumin/Globulin [Mass ratio] 1.1 {ratio} Normal [facility] Comment on above: Performed By: #### C MP ####[facility] Bqqssegtah6594 [place] [address]Dr. Chrissy Frazier ALP [Catalytic activity/Vol] 67 U/L Normal 46-116 [facility] Comment on above: Performed By: #### C MP ####[facility] [address]jduwebb[address] [place], [place] [address]Dr. Chrissy Frazier ALT [Catalytic activity/Vol] 75 U/L Critically high 16-63 [facility] Comment on above: Performed By: #### C MP ####[facility] [address]hrjrmqof[address] [place], [place] [address]Dr. Chrissy Frazier Anion gap [Moles/Vol] 14.3 mmol/L Normal [facility] Comment on above: Performed By: #### C MP ####[facility] Z[address]bhfswpm[address] [place], [place] [address]Dr. Chrissy Frazier AST [Catalytic activity/Vol] 40 U/L Critically high 15-37 [facility] Comment on above: Performed By: #### C MP ####[facility] [address]opdlxbqp[address] [place], [place] [address]Dr. Chrissy Frazier Bilirubin [Mass/Vol] 0.9 mg/dL Normal 0.2-1.0 [facility] Comment on above: Performed By: #### C MP ####[facility] Omzqphesam[address] [place], [place] [address]Dr. Chrissy Frazier Calcium [Mass/Vol] 8.4 mg/dL Critically low 8.5-10.1 [facility] Comment on above: Performed By: #### C MP ####[facility] Eovrmaacjv[address] [place], [place] [address]Dr. Chrissy Frazier Chloride [Moles/Vol] 104 mmol/L Normal 98-107 [facility] Comment on above: Performed By: #### C MP ####[facility] Jytxjpkbwy[address] [place], [place] [address]Dr. Chrissy Frazier CO2 [Moles/Vol] 24.1 mmol/L Normal 21.0-32.0 [facility] [facility] Comment on above: Performed By: #### C MP ####[facility] [address]rydkzgo[address] [place] [address]Dr. Tishrowan Frazier Creatinine [Mass/Vol] 1.11 mg/dL Normal 0.70-1.30 [facility] Comment on above: Performed By: #### C MP ####[facility] Ipvpuciote6[address] [place] [address]Dr. Chrissy Freddie EGFR-AF WELSH >60 Normal >=60 [facility] Comment on above: Performed By: #### C MP ####[facility] Iscgnugbto18[address] [place], [place] [address]Dr. Chrissy Frazier EGFR-NON AF WELSH >60 Normal >=60 [facility] Comment on above: Performed By: #### C MP ####[facility] Qwqelhfrxy150[address] [place], [place] [address]Dr. Chrissy Frazier Globulin (S) [Mass/Vol] 3.6 g/dL Normal [facility] Comment on above: Performed By: #### C MP ####[facility] Snyehhijee03[address] [place], [place] [address]Dr. Chrissy Frazier Glucose [Mass/Vol] 89 mg/dL Normal 74-106 [facility] Comment on above: Performed By: #### C MP ####[facility] Peduzqkosv[address] [place], [place] [address]Dr. Chrissy Frazier Potassium [Moles/Vol] 3.4 mmol/L Critically low 3.5-5.1 [facility] Comment on above: Performed By: #### C MP ####[facility] Ckeccakprn2900[address] [place], [place] [address]Dr. Chrissy Frazier Protein [Mass/Vol] 7.4 g/dL Normal 6.4-8.2 [facility] Comment on above: Performed By: #### C MP ####[facility] Rauocukbjk1285[address] [place], [place] [address]Dr. Chrissy Frazier Sodium [Moles/Vol] 139 mmol/L Normal 136-145 [facility] Comment on above: Performed By: #### C MP ####[facility] Knygicwtca4036[address] [place], [place] [address]Dr. Chrissy Frazier Urea nitrogen [Mass/Vol] 10.0 mg/dL Normal 7.0-18.0 [facility] Comment on above: Performed By: #### C MP ####[facility] Edrpeydupo717[address] [place], [place] [address]Dr. Chrissy Frazier Urea nitrogen/Creatinine [Mass ratio] 9.0 mg/mg Normal [facility] Comment on above: Performed By: #### C MP ####[facility] Fsrbvrqkkj1945[address] [place], [place] [address]Dr. Chrissy Frazier CBC AUTO DIFFon 07-04-2022 BASO # 0.0 103/ul Normal 0.0-0.1 [facility] Comment on above: Performed By: #### C BC ####[facility] Kluazdolbl009[address] [place], [place] [address]Dr. Chrissy Frazier Basophils/100 WBC (Bld) 0.2 % Normal 0.2-2.0 [facility] Comment on above: Performed By: #### C BC ####[facility] Khivfsuqpg8759[address] [place], [place] [address]DrNancy Frazier EO # 0.0 103/ul Normal 0.0-0.7 [facility] Comment on above: Performed By: #### C BC ####[facility] Gecepwtbtm0024[address] [place], [place] [address]Dr. Chrissy Frazier Eosinophils/100 WBC (Bld) 0.3 % Critically low 0.9-7.0 [facility] Comment on above: Performed By: #### C BC ####[facility] Xhzokeapuy4239[address] [place], [place] [address]Dr. Chrissy Frazier Erythrocyte distribution width (RBC) [Ratio] 14.0 % Normal 11.0-15.0 [facility] Comment on above: Performed By: #### C BC ####[facility] Vuixhczgik228662 [address] [place], [place] [address]Dr. Chrissy Frazier Hematocrit (Bld) [Volume fraction] 43.2 % Normal 42.0-54.0 [facility] Comment on above: Performed By: #### C BC ####[facility] Wbutfwibwd4594 [place] [address]DrNancy Chrissy Freddie Hemoglobin (Bld) [Mass/Vol] 14.6 g/dL Normal 14.0-18.0 [facility] Comment on above: Performed By: #### C BC ####[facility] Qmofgojhuv0630[address] [place], [place] [address]DrNancy Frazier IG # 0.11 10e3/ul Critically high 0.00-0.03 [facility] Comment on above: Performed By: #### C BC ####[facility] Szwxdxmits4438[address] [place], [place] [address]DrNancy Frazier IG % 0.8 % Critically high 0.0-0.5 [facility] Comment on above: Performed By: #### C BC ####[facility] Bbqgwukovm4439[address] [place], [place] [address]DrNancy Frazier LYMPH # 2.6 103/ul Normal 1.2-3.8 [facility] Comment on above: Performed By: #### C BC ####[facility] Xajcojnuxz3747[address] [place], [place] [address]DrNancy Frazier Lymphocytes/100 WBC (Bld) 18.3 % Critically low 20.5-60.0 [facility] Comment on above: Performed By: #### C BC ####[facility] Xvwefuybea5527[address] [place], [place] [address]DrNancy Frazier MANUAL DIFF REQ NO Normal [facility] Comment on above: Performed By: #### C BC ####[facility] Irfkeetmfn414[address] [place], [place] [address]DrNancy Frazier MCH (RBC) [Entitic mass] 28.1 pg Normal 25.9-34.0 [facility] Comment on above: Performed By: #### C BC ####[facility] Gewxsdgrzc265[address] [place], [place] [address]DrNancy Frazier MCHC (RBC) [Mass/Vol] 33.8 g/dL Normal 29.9-35.2 [facility] Comment on above: Performed By: #### C BC ####[facility] Uyvpfygmfo[address] [place] [address]Dr. Chrissy Frazier MCV (RBC) [Entitic vol] 83.2 fL Normal 80.0-94.0 [facility] Comment on above: Performed By: #### C BC ####[facility] Jufqawaplg2569[address] [place], [place] [address]Dr. Chrissy Frazier MONO # 0.7 103/ul Normal 0.3-0.8 [facility] Comment on above: Performed By: #### C BC ####[facility] Sykhnjahnc836[address] [place], [place] [address]Dr. Chrissy Frazier Monocytes/100 WBC (Bld) 5.3 % Normal 1.7-12.0 [facility] Comment on above: Performed By: #### C BC ####[facility] Dlljrpwgsd7975[address] [place], [place] [address]Dr. Chrissy Frazier NEUT # 10.5 103/ul Critically high 1.4-6.5 [facility] Comment on above: Performed By: #### C BC ####[facility] Jgsvebdmxy9459[address] [place], [place] [address]Dr. Chrissy Frazier Neutrophils/100 WBC (Bld) 75.1 % Critically high 43.0-75.0 [facility] Comment on above: Performed By: #### C BC ####[facility] Aqscohldgh1784[address] [place], [place] [address]Dr. Chrissy Frazier Platelet mean volume (Bld) [Entitic vol] 10.6 fL Normal 9.5-13.5 [facility] Comment on above: Performed By: #### C BC ####[facility] Gjthokisef5664[address] [place], [place] [address]Dr. Chrissy Frazier PLT 309 103/ul Normal 150-450 [facility] Comment on above: Performed By: #### C BC ####[facility] Cpmvumxarp686762 [address] [place], [place] [address]Dr. Chrissy Frazier RBC 5.19 106/ul Normal 4.70-6.10 [facility] Comment on above: Performed By: #### C BC ####[facility] Mtcewfepnt5[address] [place] [id number]. Chrissy Frazier WBC 14.0 103/ul Critically high 4.0-11.0 [facility] Comment on above: Performed By: #### C BC ####[facility] Ehzlbikrqo689[address] [place], [place] [address]DrNancy Frazier PROF 14(COMP METB)on 022 Albumin [Mass/Vol] 4.0 g/dL Normal 3.4-5.0 [facility] Comment on above: Performed By: #### C MP ####[facility] Gyfyyozrcc546[address] [place], [place] [address]DrNancy Frazier Albumin/Globulin [Mass ratio] 1.1 {ratio} Normal [facility] Comment on above: Performed By: #### C MP ####[facility] Hoaedndhec404[address] [place], [place] [address]Dr. Chrissy Frazier ALP [Catalytic activity/Vol] 67 U/L Normal 46-116 [facility] Comment on above: Performed By: #### C MP ####[facility] Eoxapcygjf474[address] [place], [place] [address]DrNancy Frazier ALT [Catalytic activity/Vol] 40 U/L Normal 16-63 [facility] Comment on above: Performed By: #### C MP ####[facility] Rryjzncedx7937[address] [place], [place] [address]DrNancy Frazier Anion gap [Moles/Vol] 17.7 mmol/L Normal [facility] Comment on above: Performed By: #### C MP ####[facility] Wzvsgvrhkz8550[address] [place], [place] [address]DrNancy Frazier AST [Catalytic activity/Vol] 27 U/L Normal 15-37 [facility] Comment on above: Performed By: #### C MP ####[facility] Vukhmmmkqt945[address] [place], [place] [address]DrNancy Frazier Bilirubin [Mass/Vol] 0.8 mg/dL Normal 0.2-1.0 [facility] Comment on above: Performed By: #### C MP ####[facility] Dkxkztanho[address] [place] [address]Dr. Tishrowan Freddie Calcium [Mass/Vol] 8.8 mg/dL Normal 8.5-10.1 [facility] Comment on above: Performed By: #### C MP ####[facility] Jnlfhboohb898262 [address] [place], [place] [address]Dr. Chrissy Frazier Chloride [Moles/Vol] 105 mmol/L Normal 98-107 [facility] Comment on above: Performed By: #### C MP ####[facility] Jpvezkbznj919[address] [place], [place] [address]Dr. Tishrowan Freddie CO2 [Moles/Vol] 16.5 mmol/L Critically low 21.0-32.0 [facility] Comment on above: Performed By: #### C MP ####[facility] Yvxukxkziq585362 [address] [place], [place] [address]Dr. Chrissy Frazier Creatinine [Mass/Vol] 1.02 mg/dL Normal 0.70-1.30 [facility] Comment on above: Performed By: #### C MP ####[facility] Cdjiobqonn346362 [address] [place], [place] [address]Dr. Tishrowan Freddie EGFR-AF WELSH >60 Normal >=60 [facility] Comment on above: Performed By: #### C MP ####[facility] Qsllqaebvx6121 [place] [address]Dr. Chrissy Frazier EGFR-NON AF WELSH >60 Normal >=60 [facility] Comment on above: Performed By: #### C MP ####[facility] Jlruspmpvv6396 [place] [address]Dr. Chrissy Frazier Globulin (S) [Mass/Vol] 3.7 g/dL Normal [facility] Comment on above: Performed By: #### C MP ####[facility] Vlnzminulv0809[address] [place], [place] [address]Dr. Chrissy Frazier Glucose [Mass/Vol] 106 mg/dL Normal 74-106 [facility] Comment on above: Performed By: #### C MP ####[facility] Mdmfzjdode9945 [place] [address]Dr. Chrissy Frazier Potassium [Moles/Vol] 3.2 mmol/L Critically low 3.5-5.1 [facility] Comment on above: Performed By: #### C MP ####[facility] Ngkkbanuwh4830 [place] [address]Dr. Chrissy Freddie Protein [Mass/Vol] 7.7 g/dL Normal 6.4-8.2 [facility] Comment on above: Performed By: #### C MP ####[facility] Ucuymnijsw017[address] [place], [place] [address]Dr. Chrissy Freddie Sodium [Moles/Vol] 136 mmol/L Normal 136-145 [facility] Comment on above: Performed By: #### C MP ####[facility] Xtyhxrqgzu722[address] [place], [place] [address]Dr. Chrissy Freddie Urea nitrogen [Mass/Vol] 10.0 mg/dL Normal 7.0-18.0 [facility] Comment on above: Performed By: #### C MP ####[facility] Ocoivqlowp4834[address] [place], [place] [address]Dr. Chrissy Freddie Urea nitrogen/Creatinine [Mass ratio] 9.8 mg/mg Normal [facility] Comment on above: Performed By: #### C MP ####[facility] Vmabkfkviq4540[address] [place], [place] [address]Dr. Chrissy Freddie CBC AUTO DIFFon 07-03-2022 BASO # 0.1 103/ul Normal 0.0-0.1 [facility] Comment on above: Performed By: #### C BC ####[facility] Vqjjduemyu439[address] [place], [place] [address]Dr. Tishrowan Frazier Basophils/100 WBC (Bld) 0.5 % Normal 0.2-2.0 [facility] Comment on above: Performed By: #### C BC ####[facility] Lfhzeerewo359[address] [place], [place] [address]Dr. Chrissy Frazier EO # 0.1 103/ul Normal 0.0-0.7 [facility] Comment on above: Performed By: #### C BC ####[facility] Ookjguymsh27[address] [place] [address]Dr. Chrissy Frazier Eosinophils/100 WBC (Bld) 1.3 % Normal 0.9-7.0 [facility] Comment on above: Performed By: #### C BC ####[facility] Tddbzoqtte2859 [place] [address]Dr. Chrissy Frazier Erythrocyte distribution width (RBC) [Ratio] 14.2 % Normal 11.0-15.0 [facility] Comment on above: Performed By: #### C BC ####[facility] Qkyscrafat998162 [address] [place], [place] [address]Dr. Chrissy Frazier Hematocrit (Bld) [Volume fraction] 41.7 % Critically low 42.0-54.0 [facility] Comment on above: Performed By: #### C BC ####[facility] Mcmyemuwen466362 [address] [place], [place] [address]Dr. Chrissy Frazier Hemoglobin (Bld) [Mass/Vol] 13.6 g/dL Critically low 14.0-18.0 [facility] Comment on above: Performed By: #### C BC ####[facility] Kmlhrqbmsz697[address] [place], [place] [address]Dr. Chrissy Frazier IG # 0.04 10e3/ul Critically high 0.00-0.03 [facility] Comment on above: Performed By: #### C BC ####[facility] Xsbabuwzki9700[address] [place], [place] [address]Dr. Chrissy Frazier IG % 0.4 % Normal 0.0-0.5 [facility] Comment on above: Performed By: #### C BC ####[facility] Rupbeftnkx5859[address] [place], [place] [address]Dr. Chrissy Frazier LYMPH # 3.5 103/ul Normal 1.2-3.8 [facility] Comment on above: Performed By: #### C BC ####[facility] Ketcweqmzr305[address] [place], [place] [address]Dr. Chrissy Frazier Lymphocytes/100 WBC (Bld) 33.5 % Normal 20.5-60.0 [facility] Comment on above: Performed By: #### C BC ####[facility] Ewxbjqcpwb4854 [place] [address]DrNancy Frazier MANUAL DIFF REQ NO Normal [facility] Comment on above: Performed By: #### C BC ####[facility] Xouizbpwcm3725 [place] [address]DrNancy Frazier MCH (RBC) [Entitic mass] 27.9 pg Normal 25.9-34.0 [facility] Comment on above: Performed By: #### C BC ####[facility] Mlcrvqbwlh6199[address] [place], [place] [address]DrNancy Frazier MCHC (RBC) [Mass/Vol] 32.6 g/dL Normal 29.9-35.2 [facility] Comment on above: Performed By: #### C BC ####[facility] Osfcvyfoqu034[address] [place], [place] [address]DrNancy Frazier MCV (RBC) [Entitic vol] 85.6 fL Normal 80.0-94.0 [facility] Comment on above: Performed By: #### C BC ####[facility] Atewzctbno432[address] [place], [place] [address]DrNancy Frazier MONO # 0.7 103/ul Normal 0.3-0.8 [facility] Comment on above: Performed By: #### C BC ####[facility] Vqblrmtyoo2909[address] [place], [place] [address]DrNancy Frazier Monocytes/100 WBC (Bld) 6.5 % Normal 1.7-12.0 [facility] Comment on above: Performed By: #### C BC ####[facility] Mfcdqylswb350[address] [place], [place] [address]DrNancy Frazier NEUT # 6.1 103/ul Normal 1.4-6.5 [facility] Comment on above: Performed By: #### C BC ####[facility] Uzholpvtpi8169[address] [place], [place] [address]DrNancy Frazier Neutrophils/100 WBC (Bld) 57.8 % Normal 43.0-75.0 [facility] Comment on above: Performed By: #### C BC ####[facility] Qdhrfrejxs7798 [place] [address]DrNancy Frazier Platelet mean volume (Bld) [Entitic vol] 10.4 fL Normal 9.5-13.5 [facility] Comment on above: Performed By: #### C BC ####[facility] Luexiawgfw0132 [place] [address]DrNancy Frazier PLT 288 103/ul Normal 150-450 [facility] Comment on above: Performed By: #### C BC ####[facility] Uneecyyaaa5866[address] [place], [place] [address]Dr. Chrissy Frazier RBC 4.87 106/ul Normal 4.70-6.10 [facility] Comment on above: Performed By: #### C BC ####[facility] Dadfqhmeir7622[address] [place], [place] [address]DrNancy Frazier WBC 10.5 103/ul Normal 4.0-11.0 [facility] Comment on above: Performed By: #### C BC ####[facility] Kfnjzzrqxf738[address] [place], [place] [address]DrNancy Frazier PROF 14(COMP METB)on 022 Albumin [Mass/Vol] 3.6 g/dL Normal 3.4-5.0 [facility] Comment on above: Performed By: #### C MP ####[facility] Wkqodbhqmq409[address] [place], [place] [address]DrNancy Frazier Albumin/Globulin [Mass ratio] 1.1 {ratio} Normal [facility] Comment on above: Performed By: #### C MP ####[facility] Cuihlblrtt1048 [place] [address]DrNancy Frazier ALP [Catalytic activity/Vol] 58 U/L Normal 46-116 [facility] Comment on above: Performed By: #### C MP ####[facility] Vvalbznsrx16[address] [place], [place] [address]DrNancy Frazier ALT [Catalytic activity/Vol] 30 U/L Normal 16-63 [facility] Comment on above: Performed By: #### C MP ####[facility] Axxsdynksq9092 [place] [id number]. Chrissy Frazier Anion gap [Moles/Vol] 14.5 mmol/L Normal [facility] Comment on above: Performed By: #### C MP ####[facility] Ahuijdqmog6509 [place] [id number]. Chrissy Frazier AST [Catalytic activity/Vol] 17 U/L Normal 15-37 [facility] Comment on above: Performed By: #### C MP ####[facility] Xptlkratrk2937 [place] [id number]. Chrissy Freddie Bilirubin [Mass/Vol] 0.6 mg/dL Normal 0.2-1.0 [facility] Comment on above: Performed By: #### C MP ####[facility] Jlbtaiymzv1330 [place] [address]Dr. Tishrowan Freddie Calcium [Mass/Vol] 8.4 mg/dL Critically low 8.5-10.1 [facility] Comment on above: Performed By: #### C MP ####[facility] Peldgjtcnm3760 [place] [address]Dr. Chrissy Freddie Chloride [Moles/Vol] 106 mmol/L Normal 98-107 [facility] Comment on above: Performed By: #### C MP ####[facility] Fajcxygwsm8384 [place] [id number]. Tishorwan Freddie CO2 [Moles/Vol] 22.6 mmol/L Normal 21.0-32.0 [facility] Comment on above: Performed By: #### C MP ####[facility] Pvhebeubxo8522 [place] [phone]. Chrissy Freddie Creatinine [Mass/Vol] 1.08 mg/dL Normal 0.70-1.30 [facility] Comment on above: Performed By: #### C MP ####[facility] Jsdvzuvzxo4808 [place] [id number]. Chrissy Freddie EGFR-AF WELSH >60 Normal >=60 [facility] Comment on above: Performed By: #### C MP ####[facility] Sfbwiuytnt2277 [place] [id number]. Chrissy Frazier EGFR-NON AF WELSH >60 Normal >=60 [facility] Comment on above: Performed By: #### C MP ####[facility] Daogwvsqps0407 [place] [id number]. Chrissy Frazier Globulin (S) [Mass/Vol] 3.3 g/dL Normal [facility] Comment on above: Performed By: #### C MP ####[facility] Mvzgfpwqwq6334 [place] [address]Dr. Chrissy Frazier Glucose [Mass/Vol] 94 mg/dL Normal 74-106 [facility] Comment on above: Performed By: #### C MP ####[facility] Awlkfuqrqt3791 [place] [address]Dr. Chrissy Frazier Potassium [Moles/Vol] 3.1 mmol/L Critically low 3.5-5.1 [facility] Comment on above: Performed By: #### C MP ####[facility] Pyzntegjpm33[address] [place], [place] [address]Dr. Chrissy Frazier Protein [Mass/Vol] 6.9 g/dL Normal 6.4-8.2 [facility] Comment on above: Performed By: #### C MP ####[facility] Fdvvbzhafs464[address] [place], [place] [address]Dr. Chrissy Frazier Sodium [Moles/Vol] 140 mmol/L Normal 136-145 [facility] Comment on above: Performed By: #### C MP ####[facility] Ydghehirsz44[address] [place], [place] [address]Dr. Chrissy Frazier Urea nitrogen [Mass/Vol] 10.0 mg/dL Normal 7.0-18.0 [facility] Comment on above: Performed By: #### C MP ####[facility] Jujuennhqu523[address] [place], [place] [address]Dr. Chrissy Frazier Urea nitrogen/Creatinine [Mass ratio] 9.3 mg/mg Normal [facility] Comment on above: Performed By: #### C MP ####[facility] Yguhuzhshl6608 [place] [id number]. Chrissy Freddie CBC AUTO DIFFon 07-02-2022 BASO # 0.0 103/ul Normal 0.0-0.1 [facility] Comment on above: Performed By: #### C BC ####[facility] Axyevexdgg9248 [place] [id number]. Tishrowan Frazier Basophils/100 WBC (Bld) 0.2 % Normal 0.2-2.0 [facility] Comment on above: Performed By: #### C BC ####[facility] Cbofhkxwnv6579[address] [place], [place] [address]Dr. Chrissy Freddie EO # 0.0 103/ul Normal 0.0-0.7 [facility] Comment on above: Performed By: #### C BC ####[facility] Oypoynhtog190[address] [place], [place] [address]Dr. Tishrowan Frazier Eosinophils/100 WBC (Bld) 0.0 % Critically low 0.9-7.0 [facility] Comment on above: Performed By: #### C BC ####[facility] Lswrpfsudw1032[address] [place], [place] [address]Dr. Chrissy Freddie Erythrocyte distribution width (RBC) [Ratio] 14.2 % Normal 11.0-15.0 [facility] Comment on above: Performed By: #### C BC ####[facility] Xwdawlkuts8884[address] [place], [place] [address]Dr. Tishrowan Frazier Hematocrit (Bld) [Volume fraction] 46.2 % Normal 42.0-54.0 [facility] Comment on above: Performed By: #### C BC ####[facility] Zpydbtkpdz396[address] [place], [place] [address]Dr. Tishrowan Frazier Hemoglobin (Bld) [Mass/Vol] 15.2 g/dL Normal 14.0-18.0 [facility] Comment on above: Performed By: #### C BC ####[facility] Ouzlycivpy13[address] [place], [place] [address]Dr. Chrissy Frazier IG # 0.07 10e3/ul Critically high 0.00-0.03 [facility] Comment on above: Performed By: #### C BC ####[facility] Mhekggoacx9610 [place] [address]Dr. Chrissy Frazier IG % 0.4 % Normal 0.0-0.5 [facility] Comment on above: Performed By: #### C BC ####[facility] Kaumqmsnbf8462 [place] [phone] Frazier LYMPH # 2.8 103/ul Normal 1.2-3.8 [facility] Comment on above: Performed By: #### C BC ####[facility] Jfzhqyczoe6183 [place] [phone] Frazier Lymphocytes/100 WBC (Bld) 16.7 % Critically low 20.5-60.0 [facility] Comment on above: Performed By: #### C BC ####[facility] Gldipfbkml1769 [place] [address]DrNancy Frazier MANUAL DIFF REQ NO Normal [facility] Comment on above: Performed By: #### C BC ####[facility] Uvnwkmubic0952 [place] [phone]. Chrissy Frazier MCH (RBC) [Entitic mass] 28.3 pg Normal 25.9-34.0 [facility] Comment on above: Performed By: #### C BC ####[facility] Adccoemdlv9640 [place] [id number] Frazier MCHC (RBC) [Mass/Vol] 32.9 g/dL Normal 29.9-35.2 [facility] Comment on above: Performed By: #### C BC ####[facility] Oomnkwcigo7567 [place] [phone] Frazier MCV (RBC) [Entitic vol] 86.0 fL Normal 80.0-94.0 [facility] Comment on above: Performed By: #### C BC ####[facility] Efvkrzbyvn9208 [place] [phone] Frazier MONO # 0.9 103/ul Critically high 0.3-0.8 [facility] Comment on above: Performed By: #### C BC ####[facility] Vnjmdosgsc6201 [place] [id number]. Chrissy Frazier Monocytes/100 WBC (Bld) 5.1 % Normal 1.7-12.0 [facility] Comment on above: Performed By: #### C BC ####[facility] Nagctkyzbg5665 [place] [phone]. Chrissy Frazier NEUT # 13.2 103/ul Critically high 1.4-6.5 [facility] Comment on above: Performed By: #### C BC ####[facility] Etqoawfzfb3051 [place] [phone]. Chrissy Frazier Neutrophils/100 WBC (Bld) 77.6 % Critically high 43.0-75.0 [facility] Comment on above: Performed By: #### C BC ####[facility] Lpktqpyrqt1521 [place] [phone]. Chrissy Frazier Platelet mean volume (Bld) [Entitic vol] 11.6 fL Normal 9.5-13.5 [facility] Comment on above: Performed By: #### C BC ####[facility] Biwlzpqdmo0537 [place] [phone]. Chrissy Frazier PLT 317 103/ul Normal 150-450 [facility] Comment on above: Performed By: #### C BC ####[facility] Qlkgiemzxd3857 [place] [phone]. Chrissy Frazier RBC 5.37 106/ul Normal 4.70-6.10 [facility] Comment on above: Performed By: #### C BC ####[facility] Gslmeiovuz4675 [place] [id number]. Chrissy Frazier WBC 17.1 103/ul Critically high 4.0-11.0 [facility] Comment on above: Performed By: #### C BC ####[facility] Dcarwfpwxz1876 [place] [phone]. Chrissy Frazier CT ABD/PELV W CONon 07-02-[address] ABD/PELV W CON Normal [facility] H PYLORI ANTIBODY IGGon 06-21 H. PYLORI IGG ABS 0.13 Index Value Normal 0.00-0.79 [facility] Comment on above: Result Comment: Nega tive <0.80 Equivocal 0.80 - 0.89 Positive >0.89 Performed By: #### H PYLLC ####[facility] [address]jbkwnnvg[address] [place] [address]Dr. Chrissy Frazier PROF 14(COMP METB)on 022 Albumin [Mass/Vol] 3.8 g/dL Normal 3.4-5.0 [facility] Comment on above: Performed By: #### C MP ####[facility] Laezmznrsw[address] [place], [place] [address]Dr. Chrissy Frazier Albumin/Globulin [Mass ratio] 1.0 {ratio} Normal [facility] Comment on above: Performed By: #### C MP ####[facility] Uzrfdsrmdc036[address] [place], [place] [address]Dr. Chrissy Frazier ALP [Catalytic activity/Vol] 68 U/L Normal 46-116 [facility] Comment on above: Performed By: #### C MP ####[facility] Ngzdggzaxj266[address] [place], [place] [address]Dr. Chrissy Frazier ALT [Catalytic activity/Vol] 34 U/L Normal 16-63 [facility] Comment on above: Performed By: #### C MP ####[facility] Pskdgsbjpr8[address] [place], [place] [address]Dr. Chrissy Frazier Anion gap [Moles/Vol] 17.9 mmol/L Normal [facility] Comment on above: Performed By: #### C MP ####[facility] Nplyagxfcc64[address] [place], [place] [address]Dr. Chrissy Frazier AST [Catalytic activity/Vol] 24 U/L Normal 15-37 [facility] Comment on above: Performed By: #### C MP ####[facility] Pdvhyncgiy9966[address] [place], [place] [address]Dr. Chrissy Frazier Bilirubin [Mass/Vol] 0.6 mg/dL Normal 0.2-1.0 [facility] Comment on above: Performed By: #### C MP ####[facility] K[address]ocywfzg[address] [place] [address]Dr. Chrissy Frazier Calcium [Mass/Vol] 8.8 mg/dL Normal 8.5-10.1 [facility] Comment on above: Performed By: #### C MP ####[facility] Mfaexzgcjr[address] [place] [address]Dr. Chrissy Frazier Chloride [Moles/Vol] 105 mmol/L Normal 98-107 [facility] Comment on above: Performed By: #### C MP ####[facility] Lrqciqxvoc38[address] [place] [address]Dr. Chrissy Frazier CO2 [Moles/Vol] 18.8 mmol/L Critically low 21.0-32.0 [facility] Comment on above: Performed By: #### C MP ####[facility] Anrfhpdlpa155[address] [place], [place] [address]Dr. Chrissy Frazier Creatinine [Mass/Vol] 1.15 mg/dL Normal 0.70-1.30 [facility] Comment on above: Performed By: #### C MP ####[facility] Vbokekaowo27[address] [place], [place] [address]Dr. Chrissy Frazier EGFR-AF WELSH >60 Normal >=60 [facility] Comment on above: Performed By: #### C MP ####[facility] Lrasgvxgxq9864[address] [place], [place] [address]Dr. Chrissy Frazier EGFR-NON AF WELSH >60 Normal >=60 [facility] Comment on above: Performed By: #### C MP ####[facility] Xlwoqqsgec[address] [place] [address]Dr. Chrissy Frazier Globulin (S) [Mass/Vol] 3.9 g/dL Normal [facility] Comment on above: Performed By: #### C MP ####[facility] Xkrpepwwlu75[address] [place] [address]Dr. Chrissy Frazier Glucose [Mass/Vol] 124 mg/dL Critically high 74-106 [facility] Comment on above: Performed By: #### C MP ####[facility] Ewqsxzwwcx1843 [place] [address]Dr. Chrissy Frazier Potassium [Moles/Vol] 3.7 mmol/L Normal 3.5-5.1 [facility] Comment on above: Performed By: #### C MP ####[facility] Udxwlasuol90[address] [place] [address]Dr. Chrissy Frazier Protein [Mass/Vol] 7.7 g/dL Normal 6.4-8.2 [facility] Comment on above: Performed By: #### C MP ####[facility] Apvtrxxwya701[address] [place], [place] [address]Dr. Chrissy Frazier Sodium [Moles/Vol] 138 mmol/L Normal 136-145 [facility] Comment on above: Performed By: #### C MP ####[facility] Dxsaftniuv139[address] [place], [place] [address]Dr. Chrissy Frazier Urea nitrogen [Mass/Vol] 9.0 mg/dL Normal 7.0-18.0 [facility] Comment on above: Performed By: #### C MP ####[facility] Feqmxrrbep756[address] [place], [place] [address]Dr. Chrissy Frazier Urea nitrogen/Creatinine [Mass ratio] 7.8 mg/mg Normal [facility] Comment on above: Performed By: #### C MP ####[facility] Rjvdghurdd9049[address] [place], [place] [address]Dr. Chrissy Frazier AMMONIAon 07-01-2022 Ammonia (P) [Moles/Vol] 14 umol/L Normal 11-32 [facility] Comment on above: Performed By: #### A MM ####[facility] Lylihzzeyt7[address] [place], [place] [address]Dr. Chrissy Frazier AMYLASEon 07-01-2022 Amylase [Catalytic activity/Vol] 32 U/L Normal 25-115 [facility] Comment on above: Performed By: #### A MY, PHOS, CMP, LIPA ####[facility] Bdwmfnieox[address] [place] [address]Dr. Chrissy Frazier CBC AUTO DIFFon 07-01-2022 BASO # 0.1 103/ul Normal 0.0-0.1 [facility] Comment on above: Performed By: #### C BC ####[facility] Nfpxbcwwbi69[address] [place] [address]Dr. Chrissy Frazier Basophils/100 WBC (Bld) 0.4 % Normal 0.2-2.0 [facility] Comment on above: Performed By: #### C BC ####[facility] Hbvsacdbok0439[address] [place], [place] [address]Dr. Chrissy Freddie EO # 0.2 103/ul Normal 0.0-0.7 [facility] Comment on above: Performed By: #### C BC ####[facility] Bmalojjkzx925[address] [place], [place] [address]Dr. Chrissy Frazier Eosinophils/100 WBC (Bld) 0.9 % Normal 0.9-7.0 [facility] Comment on above: Performed By: #### C BC ####[facility] Yrckuziduz7922[address] [place], [place] [address]Dr. Chrissy Frazier Erythrocyte distribution width (RBC) [Ratio] 13.8 % Normal 11.0-15.0 [facility] Comment on above: Performed By: #### C BC ####[facility] Zktwzlnvdz824[address] [place], [place] [address]Dr. Chrissy Frazier Hematocrit (Bld) [Volume fraction] 46.3 % Normal 42.0-54.0 [facility] Comment on above: Performed By: #### C BC ####[facility] Tgryfkhfco7813[address] [place], [place] [address]Dr. Chrissy Frazier Hemoglobin (Bld) [Mass/Vol] 15.4 g/dL Normal 14.0-18.0 [facility] Comment on above: Performed By: #### C BC ####[facility] Qbnysndbgy825[address] [place], [place] [address]Dr. Chrissy Freddie IG # 0.05 10e3/ul Critically high 0.00-0.03 [facility] Comment on above: Performed By: #### C BC ####[facility] Ujaffwoqgh2226[address] [place], [place] [address]Dr. Chrissy Frazier IG % 0.3 % Normal 0.0-0.5 [facility] Comment on above: Performed By: #### C BC ####[facility] [address]rkccg[address] [place] [address]Dr. Tishrowan Frazier LYMPH # 2.0 103/ul Normal 1.2-3.8 [facility] Comment on above: Performed By: #### C BC ####[facility] Fyazuuipny27[address] [place] [address]Dr. Tishrowan Frazier Lymphocytes/100 WBC (Bld) 12.9 % Critically low 20.5-60.0 [facility] Comment on above: Performed By: #### C BC ####[facility] Djbvuprgro022[address] [place], [place] [address]Dr. Chrissy Frazier MANUAL DIFF REQ NO Normal [facility] Comment on above: Performed By: #### C BC ####[facility] Abbrlpurzg1175[address] [place], [place] [address]Dr. Tishrowan Frazier MCH (RBC) [Entitic mass] 28.6 pg Normal 25.9-34.0 [facility] Comment on above: Performed By: #### C BC ####[facility] Psxqmiqhti6380[address] [place], [place] [address]Dr. Chrissy Freddie MCHC (RBC) [Mass/Vol] 33.3 g/dL Normal 29.9-35.2 [facility] Comment on above: Performed By: #### C BC ####[facility] Cjrtdddxhx840[address] [place], [place] [address]Dr. Chrissy Frazier MCV (RBC) [Entitic vol] 86.1 fL Normal 80.0-94.0 [facility] Comment on above: Performed By: #### C BC ####[facility] Krsjrtiwuv3420[address] [place], [place] [address]Dr. Chrissy Frazier MONO # 0.5 103/ul Normal 0.3-0.8 [facility] Comment on above: Performed By: #### C BC ####[facility] Kiupzoutfj189[address] [place], [place] [address]Dr. Chrissy Frazier Monocytes/100 WBC (Bld) 3.0 % Normal 1.7-12.0 [facility] Comment on above: Performed By: #### C BC ####[facility] [address]ujztsjdog[address] [place] [address]Dr. Chrissy Frazier NEUT # 13.0 103/ul Critically high 1.4-6.5 [facility] Comment on above: Performed By: #### C BC ####[facility] Vvyfepkrco230[address] [place] [address]Dr. Chrissy Frazier Neutrophils/100 WBC (Bld) 82.5 % Critically high 43.0-75.0 [facility] Comment on above: Performed By: #### C BC ####[facility] Rkrkpzmzio110[address] [place], [place] [address]Dr. Chrissy Frazier Platelet mean volume (Bld) [Entitic vol] 10.0 fL Normal 9.5-13.5 [facility] Comment on above: Performed By: #### C BC ####[facility] Chrzkaaemg711[address] [place], [place] [address]Dr. Chrissy Frazier PLT 370 103/ul Normal 150-450 [facility] Comment on above: Performed By: #### C BC ####[facility] Dgoshlhitq328[address] [place], [place] [address]Dr. Chrissy Frazier RBC 5.38 106/ul Normal 4.70-6.10 [facility] Comment on above: Performed By: #### C BC ####[facility] Sjbgzspazo59[address] [place], [place] [address]Dr. Chrissy Frazier WBC 15.8 103/ul Critically high 4.0-11.0 [facility] Comment on above: Performed By: #### C BC ####[facility] Zarwqxcvgl[address] [place], [place] [address]Dr. Chrissy Freddie CULTURE URINEon 07-01-2022 CULTURE URINE Culture Observations: No growth Normal [facility] Comment on above: Performed By: #### U RCX ####[facility] Rjvgrgjvyj36[address] [place], [place] [address]Dr. Chrissy Freddie [facility] SARS-CoV-2 (COVID-19) RNA RHIANNON+probe Ql (Unsp spec) Not detected Normal NOT DETECTED [facility] Comment on above: Result Comment: When [...] for this test is supported by the Predator Control [employer] of Health and Human Service's declaration that [...] be used). Performed By: #### C VDTBH ####[facility] [address]ftlonia[address] [place] [address]Dr. Chrissy Frazier DRUG SCREEN RAPID (URINE)on 07-01-2022 AMP Negative Normal NEGATIVE [facility] Comment on above: Performed By: #### D REYES UAMIC ####[facility] Xcbkunwhxc27[address] [place] [address]Dr. Chrissy Frazier BAR Negative Normal NEGATIVE [facility] Comment on above: Performed By: #### D REYES UAMIC ####[facility] [address]mddtonb[address] [place] [id number]. Chrissy Frazier BUP Negative Normal NEGATIVE [facility] Comment on above: Performed By: #### D REYES UAMIC ####[facility] Qtzgvzpctb5[address] [place] [address]Dr. Chrissy Frazier BZO Negative Normal NEGATIVE [facility] Comment on above: Performed By: #### D REYES UAMIC ####[facility] Ysdyvptjph7[address] [place] [id number]. Chrissy Frazier LAUREN Negative Normal NEGATIVE [facility] Comment on above: Performed By: #### Amelie CHAMBERS UAMIC ####[facility] Auqwyfikeh93[address] [place], [place] [address]Dr. Chrissy Frazier CUT-OFFS SEE BELOW Normal [facility] Comment on above: Result Comment: AMP [...] ng/mL Performed By: #### Amelie CHAMBERS UAMIC ####[facility] Pkamrhuamy64[address] [place], [place] [address]Dr. Chrissy Frazier DRUG CUT HEADER DRUG CLASS TEST SYSTEM CUT-OFF CONCENTRATIONS ARE FOLLOWS: Normal [facility] Comment on above: Performed By: #### Amelie CHAMBERS UAMIC ####[facility] Qseixocfzx264[address] [place], [place] [address]Dr. Chrissy Frazier mAMP Negative Normal NEGATIVE [facility] Comment on above: Performed By: #### Amelie CHAMBERS UAMIC ####[facility] Ywinquyxdd457[address] [place], [place] [address]Dr. Chrissy Frazier MTD Negative Normal NEGATIVE [facility] Comment on above: Performed By: #### Amelie CHAMBERS UAMIC ####[facility] Knwkwkmetf26[address] [place], [place] [address]Dr. Chrissy Frazeir OPI Negative Normal NEGATIVE [facility] Comment on above: Performed By: #### Amelie CHAMBERS UAMIC ####[facility] Ykvbqwqqnj908[address] [place], [place] [address]Dr. Chrissy Frazier OXY Negative Normal NEGATIVE [facility] Comment on above: Performed By: #### Amelie CHAMBERS UAMIC ####[facility] Fmfckzjirp[address] [place] [address]Dr. Chrissy Frazier PCP Negative Normal NEGATIVE [facility] Comment on above: Performed By: #### D REYES UAMIC ####[facility] Srsnoseyss[address] [place] [address]Dr. Chrissy Frazier PPX Negative Normal NEGATIVE [facility] Comment on above: Performed By: #### D REYES UAMIC ####[facility] Zspyyquslt5[address] [place] [address]Dr. Chrissy Frazier TCA Negative Normal NEGATIVE [facility] Comment on above: Performed By: #### D REYES UAMIC ####[facility] Uameijwgfh76[address] [place] [address]Dr. Chrissy Freddie THC Positive Abnormal NEGATIVE [facility] Comment on above: Performed By: #### D REYES UAMIC ####[facility] Flscxzinrk27[address] [place] [address]Dr. Chrissy Freddie LACTATE/LACTIC ACIDon 2021 Lactate [Moles/Vol] 4.4 mmol/L Critically high 0.4-1.9 [facility] Comment on above: Performed By: #### L ACT ####[facility] Psvagkyrnu212[address] [place], [place] [address]Dr. Chrissy Freddie LIPASEon 07-01-2022 Lipase [Catalytic activity/Vol] 57.0 U/L Critically low 73.0-393.0 [facility] Comment on above: Performed By: #### A MY, PHOS, CMP, LIPA ####[facility] Pqrtzivtzl[address] [place] [address]Dr. Chrissy Frazier PHOSPHORUSon 07-01-2022 Phosphate [Mass/Vol] 1.4 mg/dL Critically low 2.6-4.7 [facility] Comment on above: Performed By: #### A MY, PHOS, CMP, LIPA ####[facility] Xvrtcxmznb664[address] [place], [place] [address]Dr. Chrissy Frazier PROF 14(COMP METB)on 08-11-2 022 Albumin [Mass/Vol] 4.2 g/dL Normal 3.4-5.0 [facility] Comment on above: Performed By: #### A MY, PHOS, CMP, LIPA ####[facility] Xytfgzgngg0180 [place] [address]Dr. Chrissy Frazier Albumin/Globulin [Mass ratio] 1.1 {ratio} Normal [facility] Comment on above: Performed By: #### A MY, PHOS, CMP, LIPA ####[facility] Qmcvndfyod5301[address] [place], [place] [address]Dr. Chrissy Frazier ALP [Catalytic activity/Vol] 73 U/L Normal 46-116 [facility] Comment on above: Performed By: #### A MY, PHOS, CMP, LIPA ####[facility] Grtvjitrhn814[address] [place], [place] [address]Dr. Chrissy Frazier ALT [Catalytic activity/Vol] 43 U/L Normal 16-63 [facility] Comment on above: Performed By: #### A MY, PHOS, CMP, LIPA ####[facility] Lhfzppotls9[address] [place], [place] [address]Dr. Chrissy Frazier Anion gap [Moles/Vol] 19.0 mmol/L Normal [facility] Comment on above: Performed By: #### A MY, PHOS, CMP, LIPA ####[facility] Yymspvccsq4320[address] [place], [place] [address]Dr. Chrissy Frazier AST [Catalytic activity/Vol] 21 U/L Normal 15-37 [facility] Comment on above: Performed By: #### A MY, PHOS, CMP, LIPA ####[facility] Vcetbusnqx12[address] [place], [place] [address]Dr. Chrissy Frazier Bilirubin [Mass/Vol] 0.5 mg/dL Normal 0.2-1.0 [facility] Comment on above: Performed By: #### A MY, PHOS, CMP, LIPA ####[facility] Qclnapghqt938[address] [place], [place] [address]Dr. Chrissy Frazier Calcium [Mass/Vol] 9.3 mg/dL Normal 8.5-10.1 [facility] Comment on above: Performed By: #### A MY, PHOS, CMP, LIPA ####[facility] Bxssbqxgcg4[address] [place] [address]Dr. Chrissy Frazier Chloride [Moles/Vol] 103 mmol/L Normal 98-107 [facility] Comment on above: Performed By: #### A MY, PHOS, CMP, LIPA ####[facility] Koxjpqncdf8087 [place] [address]Dr. Chrissy Frazier CO2 [Moles/Vol] 21.1 mmol/L Normal 21.0-32.0 [facility] Comment on above: Performed By: #### A MY, PHOS, CMP, LIPA ####[facility] Ejvnyujxjn7[address] [place], [place] [address]Dr. Chrissy Frazier Creatinine [Mass/Vol] 1.44 mg/dL Critically high 0.70-1.30 [facility] Comment on above: Performed By: #### A MY, PHOS, CMP, LIPA ####[facility] Eehoxwlxup17[address] [place], [place] [address]Dr. Chrissy Frazier EGFR-AF WELSH >60 Normal >=60 [facility] Comment on above: Performed By: #### A MY, PHOS, CMP, LIPA ####[facility] Nobmfiyxnm030[address] [place] [address]Dr. Chrissy Frazier EGFR-NON AF WELSH 57 mL/min/1.73m2 Critically low >=60 [facility] Comment on above: Performed By: #### A MY, PHOS, CMP, LIPA ####[facility] Ztpyjiacnz1497 [place] [address]Dr. Chrissy Frazier Globulin (S) [Mass/Vol] 3.9 g/dL Normal [facility] Comment on above: Performed By: #### A MY, PHOS, CMP, LIPA ####[facility] Qviywuybwy8229 [place] [address]Dr. Chrissy Frazier Glucose [Mass/Vol] 148 mg/dL Critically high 74-106 [facility] Comment on above: Performed By: #### A MY, PHOS, CMP, LIPA ####[facility] Qtlppooozu7264 [place] [address]Dr. Chrissy Frazier Potassium [Moles/Vol] 3.1 mmol/L Critically low 3.5-5.1 [facility] Comment on above: Performed By: #### A MY, PHOS, CMP, LIPA ####[facility] Gofwmaexnx[address] [place] [address]Dr. Chrissy Frazier Protein [Mass/Vol] 8.1 g/dL Normal 6.4-8.2 [facility] Comment on above: Performed By: #### A MY, PHOS, CMP, LIPA ####[facility] Ssczmoapjj6[address] [place] [address]Dr. Tishrowan Frazier Sodium [Moles/Vol] 140 mmol/L Normal 136-145 [facility] Comment on above: Performed By: #### A MY, PHOS, CMP, LIPA ####[facility] Nfrrljuyzk9[address] [place], [place] [address]Dr. Chrissy Freddie Urea nitrogen [Mass/Vol] 10.0 mg/dL Normal 7.0-18.0 [facility] Comment on above: Performed By: #### A MY, PHOS, CMP, LIPA ####[facility] Fqwdhfmpps88[address] [place], [place] [address]Dr. Chrissy Frazier Urea nitrogen/Creatinine [Mass ratio] 6.9 mg/mg Normal [facility] Comment on above: Performed By: #### A MY, PHOS, CMP, LIPA ####[facility] Hsfknchsni[address] [place] [address]Dr. Chrissy Frazier UA RANDOM W/MICROSCOPICon BACTERIA TRACE Abnormal NONE SEEN [facility] Comment on above: Performed By: #### D REYES UAMIC ####[facility] Vebcmgojuj[address] [place], [place] [address]Dr. Chrissy Frazier Bilirubin Ql (U) Negative Normal NEGATIVE [facility] Comment on above: Performed By: #### D REYES UAMIC ####[facility] Owngupcfbm58[address] [place], [place] [address]Dr. Chrissy Frazier CAST NONE SEEN Normal NONE SEEN [facility] Comment on above: Performed By: #### Amelie CHAMBERS, UAMIC ####[facility] Gbutkqcpse438[address] [place], [place] [address]Dr. Chrissy Frazier Clarity (U) CLEAR Normal CLEAR [facility] Comment on above: Performed By: #### D CHAYAD, UAMIC ####[facility] Rxblunpbvb568[address] [place], [place] [address]Dr. Chrissy Frazier Color (U) YELLOW Normal YELLOW [facility] Comment on above: Performed By: #### D CHAYAD, UAMIC ####[facility] Jecsvlrxxk426[address] [place], [place] [address]Dr. Chrissy Freddie Crystals LM Nom (Urine sed) NONE SEEN Normal NONE SEEN [facility] Comment on above: Performed By: #### Amelie CHAMBERS, UAMIC ####[facility] Korygfkfrq9[address] [place], [place] [address]Dr. Tishrowan Freddie Epithelial cells LM Ql (Urine sed) RARE Normal NONE SEEN /RARE [facility] Comment on above: Performed By: #### Amelie CHAMBERS, UAMIC ####[facility] Xuxiwuordu379[address] [place], [place] [address]Dr. Chrissy Frazier Glucose Ql (U) Negative Normal NEGATIVE [facility] Comment on above: Performed By: #### Amelie CHAMBERS, UAMIC ####[facility] Igxmhqsgzw847[address] [place], [place] [address]Dr. Chrissy Frazier Hemoglobin Ql (U) Negative Normal NEGATIVE [facility] Comment on above: Performed By: #### D CHAYAD, UAMIC ####[facility] Ukfeozrwht109[address] [place], [place] [address]Dr. Chrissy Frazier Ketones Ql (U) 40 mg/dl Abnormal NEGATIVE [facility] Comment on above: Performed By: #### Amelie LARKIND, UAMIC ####[facility] Hvzpyuhdej82[address] [place], [place] [address]Dr. Chrissy Frazier LEUKOCYTES Negative Normal NEGATIVE [facility] Comment on above: Performed By: #### Amelie CHAMBERS, UAMIC ####[facility] Odgdxuxkwn9[address] [place] [id number]. Chrissy Frazier MUCOUS MODERATE Abnormal NONE SEEN [facility] Comment on above: Performed By: #### Amelie CHAMBERS UAMIC ####[facility] Rdzgzplxsg3624 [place] [address]Dr. Tishrowan Frazier Nitrite Ql (U) Negative Normal NEGATIVE [facility] Comment on above: Performed By: #### Amelie CHAMBERS UAMIC ####[facility] Xshmxnevre7656 [place] [address]Dr. Chrissy Frazier pH (U) 6.0 [pH] Normal 5-9 [facility] Comment on above: Performed By: #### Amelie CHAMBERS UAMIC ####[facility] Axzsxltjpv98[address] [place], [place] [address]Dr. Tishrowan Frazier RBC 0-2 Normal 0-2 [facility] Comment on above: Performed By: #### Amelie CHAMBERS UAMIC ####[facility] Qjglrsyjxv6310 [place] [address]Dr. Tishrowan Frazier SPEC GRAVITY 1.020 Normal 1.005-<=1.025 [facility] Comment on above: Performed By: #### Amelie CHAMBERS UAMIC ####[facility] Fifhoygopw100[address] [place], [place] [address]Dr. Chrissy Freddie UA PROTEIN Negative Normal NEGATIVE/ TRACE [facility] Comment on above: Performed By: #### Amelie CHAMBERS UAMIC ####[facility] Bnsdldnxop64[address] [place] [address]Dr. Tishrowan Frazier Urobilinogen Qn (U) 0.2 {Estrellita'U}/dL Normal 0.2 - 1. 0 [facility] Comment on above: Performed By: #### Amelie CHAMBERS UAMIC ####[facility] Cohboixxil[address] [place] [address]Dr. Chrissy Frazier WBC 0-2 Abnormal NONE SEEN [facility] Comment on above: Performed By: #### Amelie CHAMBERS UAMIC ####[facility] Ddcfdefyni0302 [place], [place] [address]Br. Chrissy Frazier XR ABD FLAT UP_PA Enoch 07-01 XR ABD FLAT UP_PA CH Normal [facility]on SARS-CoV-2 (COVID-19) RNA RHIANNON+probe Ql (Unsp spec) Not detected Normal NOT DETECTED [facility] Comment on above: Result Comment: When [...] for this test is supported by the Pred[employer] Control [employer] of Health and Human Service's declaration that [...] longer be used). Performed By: #### [facility] ####[facility] Frstljfybl4711 [place], [place] [address]Ly. Chrissy Frazier SYMPTOMATIC COVID-19 ANTIGEN on 04-23-2022 EUA Statement SEE BELOW Normal [facility] Comment on above: Result Comment: This [...] revoked sooner. Performed By: #### C VDAGS ####[facility] Omkftavynp14[address] [place] [address]Dr. Chrissy Frazier SARS-CoV-2 (COVID-19) RNA RHIANNON+probe Ql (Unsp spec) Negative Normal NEGATIVE [facility] Comment on above: Performed By: #### C VDAGS ####[facility] Ilugalkbrk[address] [place], [place] [address]Dr. Chrissy Frazier AMYLASEon 04-04-2022 Amylase [Catalytic activity/Vol] 40 U/L Normal 25-115 [facility] Comment on above: Performed By: #### C MP, TERRENCE, LIPA ####[facility] Rqkxjyjqsy[address] [place], [place] [address]Dr. Chrissy Frazier CBC AUTO DIFFon 04-04-2022 BASO # 0.1 103/ul Normal 0.0-0.1 [facility] Comment on above: Performed By: #### C BC ####[facility] Olrefadkye[address] [place], [place] [address]Dr. Chrissy Frazier Basophils/100 WBC (Bld) 0.4 % Normal 0.2-2.0 [facility] Comment on above: Performed By: #### C BC ####[facility] Btzhkfycum065[address] [place], [place] [address]Dr. Chrissy Frazier EO # 0.1 103/ul Normal 0.0-0.7 [facility] Comment on above: Performed By: #### C BC ####[facility] Odcezrxjvl22[address] [place], [place] [address]Dr. Chrissy Frazier Eosinophils/100 WBC (Bld) 0.6 % Critically low 0.9-7.0 [facility] Comment on above: Performed By: #### C BC ####[facility] [address] [place], [place] [address]Dr. Chrissy Frazier Erythrocyte distribution width (RBC) [Ratio] 13.2 % Normal 11.0-15.0 [facility] Comment on above: Performed By: #### C BC ####[facility] [address]vhcxx[address] [place] [address]Dr. Chrissy Frazier Hematocrit (Bld) [Volume fraction] 48.3 % Normal 42.0-54.0 [facility] Comment on above: Performed By: #### C BC ####[facility] Dgrvrukyuv39[address] [place] [address]Dr. Chrissy Frazier Hemoglobin (Bld) [Mass/Vol] 16.1 g/dL Normal 14.0-18.0 [facility] Comment on above: Performed By: #### C BC ####[facility] Txffgibamy96[address] [place], [place] [address]Dr. Chrissy Frazier IG # 0.12 10e3/ul Critically high 0.00-0.03 [facility] Comment on above: Performed By: #### C BC ####[facility] Wrnhqofuzg54[address] [place], [place] [address]Dr. Chrissy Frazier IG % 0.9 % Critically high 0.0-0.5 [facility] Comment on above: Performed By: #### C BC ####[facility] Atygdqoijw340[address] [place], [place] [address]Dr. Chrissy Frazier LYMPH # 3.0 103/ul Normal 1.2-3.8 [facility] Comment on above: Performed By: #### C BC ####[facility] Txmgtytbqp7036[address] [place], [place] [address]Dr. Chrissy Frazier Lymphocytes/100 WBC (Bld) 22.3 % Normal 20.5-60.0 [facility] Comment on above: Performed By: #### C BC ####[facility] Ccthfxmasx2826[address] [place], [place] [address]Dr. Chrissy Frazier MANUAL DIFF REQ NO Normal [facility] Comment on above: Performed By: #### C BC ####[facility] Yvfirzfxny027[address] [place], [place] [address]Dr. Chrissy Frazier MCH (RBC) [Entitic mass] 28.6 pg Normal 25.9-34.0 [facility] Comment on above: Performed By: #### C BC ####[facility] Izraqlcvrl8[address] [place] [id number]. Chrissy Frazier MCHC (RBC) [Mass/Vol] 33.3 g/dL Normal 29.9-35.2 [facility] Comment on above: Performed By: #### C BC ####[facility] Uxaytcqxuk13[address] [place], [place] [id number]. Chrissy Frazier MCV (RBC) [Entitic vol] 85.9 fL Normal 80.0-94.0 [facility] Comment on above: Performed By: #### C BC ####[facility] Htpkwznkpx613[address] [place], [place] [id number]. Tishrowan Freddie MONO # 0.8 103/ul Normal 0.3-0.8 [facility] Comment on above: Performed By: #### C BC ####[facility] Zikrwbcqhy69216[address] [place], [place] [address]Dr. Chrissy Frazier Monocytes/100 WBC (Bld) 5.7 % Normal 1.7-12.0 [facility] Comment on above: Performed By: #### C BC ####[facility] Tqguzfkvov107[address] [place], [place] [address]Dr. Chrissy Frazier NEUT # 9.3 103/ul Critically high 1.4-6.5 [facility] Comment on above: Performed By: #### C BC ####[facility] Pphjlqrsfk912[address] [place], [place] [address]Dr. Chrissy Frazier Neutrophils/100 WBC (Bld) 70.1 % Normal 43.0-75.0 [facility] Comment on above: Performed By: #### C BC ####[facility] Dhgvdnqwee934[address] [place], [place] [address]Dr. Chrissy Frazier Platelet mean volume (Bld) [Entitic vol] 10.3 fL Normal 9.5-13.5 [facility] Comment on above: Performed By: #### C BC ####[facility] Yxzcvbtqct4[address] [place], [place] [id number]. Chrissy Frazier PLT 461 103/ul Critically high 150-450 [facility] Comment on above: Performed By: #### C BC ####[facility] Otxqsukewc5052 [place] [phone]. Chrissy Frazier RBC 5.62 106/ul Normal 4.70-6.10 [facility] Comment on above: Performed By: #### C BC ####[facility] Yvwxgrhtdv2120 [place] [id number]. Chrissy Frazier WBC 13.3 103/ul Critically high 4.0-11.0 [facility] Comment on above: Performed By: #### C BC ####[facility] Qfauzxppxb6345 [place] [phone]. Chrissy Frazier LIPASEon 04-04-2022 Lipase [Catalytic activity/Vol] 118.0 U/L Normal 73.0-393.0 [facility] Comment on above: Performed By: #### C MP, TERRENCE, LIPA ####[facility] Lazuzgatjw[address] [place] [address]Dr. Chrissy Frazier PROF 14(COMP METB)on 022 Albumin [Mass/Vol] 4.3 g/dL Normal 3.4-5.0 [facility] Comment on above: Performed By: #### C MP, TERRENCE, LIPA ####[facility] Yensushhme5[address] [place] [address]Dr. Chrissy Frazier Albumin/Globulin [Mass ratio] 1.0 {ratio} Normal [facility] Comment on above: Performed By: #### C MP, TERRENCE, LIPA ####[facility] Japqeyvrjz2799 [place] [address]Dr. Chrissy Frazier ALP [Catalytic activity/Vol] 84 U/L Normal 46-116 [facility] Comment on above: Performed By: #### C MP, TERRENCE, LIPA ####[facility] Hruevqouug1474 [place] [address]Dr. Chrissy Frazier ALT [Catalytic activity/Vol] 81 U/L Critically high 16-63 [facility] Comment on above: Performed By: #### C MP, TERRENCE, LIPA ####[facility] Lvwqtycwxg5221 [place] [address]Dr. Chrissy Frazier Anion gap [Moles/Vol] 17.9 mmol/L Normal [facility] Comment on above: Performed By: #### C TERRENCE ADAIR LIPA ####[facility] Vihgisuvcv8860 [place] [address]Dr. Chrissy Frazier AST [Catalytic activity/Vol] 25 U/L Normal 15-37 [facility] Comment on above: Performed By: #### C TERRENCE ADAIR LIPA ####[facility] Hfhpxygnhf3379 [place] [address]Dr. Chrissy Frazier Bilirubin [Mass/Vol] 0.5 mg/dL Normal 0.2-1.0 [facility] Comment on above: Performed By: #### C TERRENCE ADAIR LIPA ####[facility] Ehbvvoxzta3836 [place] [address]Dr. Chrissy Frazier Calcium [Mass/Vol] 9.6 mg/dL Normal 8.5-10.1 [facility] Comment on above: Performed By: #### C TERRENCE ADAIR LIPA ####[facility] Jjwhhwtsjo0516 [place] [address]Dr. Chrissy Frazier Chloride [Moles/Vol] 101 mmol/L Normal 98-107 [facility] Comment on above: Performed By: #### C TERRENCE ADAIR LIPA ####[facility] Vfbvgtdtyi9420 [place] [address]Dr. Chrissy Frazier CO2 [Moles/Vol] 18.6 mmol/L Critically low 21.0-32.0 [facility] Comment on above: Performed By: #### C TERRENCE ADAIR, LIPA ####[facility] Fyvenbvpqm0243 [place] [address]Dr. Chrissy Frazier Creatinine [Mass/Vol] 1.39 mg/dL Critically high 0.70-1.30 [facility] Comment on above: Performed By: #### C TERRENCE ADAIR, LIPA ####[facility] Rwlwyvopny44[address] [place] [address]Dr. Chrissy Frazier EGFR-AF WELSH >60 Normal >=60 [facility] Comment on above: Performed By: #### C TERRENCE ADAIR, LIPA ####[facility] Awcybsqkay6818 [place] [address]Dr. Chrissy Frazier EGFR-NON AF WELSH 59 mL/min/1.73m2 Critically low >=60 [facility] Comment on above: Performed By: #### C MP, TERRENCE, LIPA ####[facility] Cnatkrgboq0509 [place] [address]Dr. Chrissy Frazier Globulin (S) [Mass/Vol] 4.3 g/dL Normal [facility] Comment on above: Performed By: #### C MP, TERRENCE, LIPA ####[facility] Yqzpvvcnjk9488 [place] [address]Dr. Chrissy Frazier Glucose [Mass/Vol] 132 mg/dL Critically high 74-106 [facility] Comment on above: Performed By: #### C MP, TERRENCE, LIPA ####[facility] Wnemytepqd6945 [place] [address]Dr. Chrissy Frazier Potassium [Moles/Vol] 3.5 mmol/L Normal 3.5-5.1 [facility] Comment on above: Performed By: #### C MP, TERRENCE, LIPA ####[facility] Iccwwbzemk139[address] [place], [place] [address]Dr. Chrissy Frazier Protein [Mass/Vol] 8.6 g/dL Critically high 6.4-8.2 [facility] Comment on above: Performed By: #### C MP, TERRENCE, LIPA ####[facility] Ettehpqbah6586 [place] [address]Dr. Chrissy Frazier Sodium [Moles/Vol] 134 mmol/L Critically low 136-[address] [facility] Comment on above: Performed By: #### C MP, TERRENCE, LIPA ####[facility] Zovfsxfqsf734[address] [place], [place] [address]Dr. Chrissy Frazier Urea nitrogen [Mass/Vol] 8.0 mg/dL Normal 7.0-18.0 [facility] Comment on above: Performed By: #### C MP, TERRENCE, LIPA ####[facility] Quxxpgoaju6316 [place] [address]Dr. Chrissy Frazier Urea nitrogen/Creatinine [Mass ratio] 5.8 mg/mg Normal [facility] Comment on above: Performed By: #### C TERRENCE ADAIR LIPA ####[facility] Sgduhoppag5662 [place] [address]Dr. Chrissy Frazier XR ABD FLAT UP_PA Enoch 04-04 XR ABD FLAT UP_PA CH Normal [facility] AMMONIAon 03-31-2022 Ammonia (P) [Moles/Vol] 19 umol/L Normal 11-32 [facility] Comment on above: Performed By: #### A MM ####[facility] Udrhnvyvwc67[address] [place], [place] [address]Dr. Chrissy Frazier CBC AUTO DIFFon 03-31-2022 BASO # 0.1 103/ul Normal 0.0-0.1 [facility] Comment on above: Performed By: #### C BC ####[facility] Gdlgadeaqj459[address] [place], [place] [address]Dr. Chrissy Frazier Basophils/100 WBC (Bld) 0.5 % Normal 0.2-2.0 [facility] Comment on above: Performed By: #### C BC ####[facility] Ghgxyclopj905[address] [place], [place] [address]Dr. Chrissy Frazier EO # 0.2 103/ul Normal 0.0-0.7 [facility] Comment on above: Performed By: #### C BC ####[facility] Dmxrzeciob9913[address] [place], [place] [address]Dr. Chrissy Frazier Eosinophils/100 WBC (Bld) 1.6 % Normal 0.9-7.0 [facility] Comment on above: Performed By: #### C BC ####[facility] Bqvieaquez839[address] [place], [place] [address]Dr. Chrissy Frazier Erythrocyte distribution width (RBC) [Ratio] 13.2 % Normal 11.0-15.0 [facility] Comment on above: Performed By: #### C BC ####[facility] Yhkqtfhcbj380[address] [place], [place] [address]Dr. Chrissy Frazier Hematocrit (Bld) [Volume fraction] 42.1 % Normal 42.0-54.0 [facility] Comment on above: Performed By: #### C BC ####[facility] Efuwqimqnj1273 [place] [address]DrNancy Frazier Hemoglobin (Bld) [Mass/Vol] 14.3 g/dL Normal 14.0-18.0 [facility] Comment on above: Performed By: #### C BC ####[facility] Hbyhjbwdvc1428 [place] [address]DrNancy Frazier IG # 0.05 10e3/ul Critically high 0.00-0.03 [facility] Comment on above: Performed By: #### C BC ####[facility] Wpceibmoen8066[address] [place], [place] [address]DrNancy Frazier IG % 0.5 % Normal 0.0-0.5 [facility] Comment on above: Performed By: #### C BC ####[facility] Vuriwzwrjd213[address] [place], [place] [address]DrNancy Frazier LYMPH # 2.9 103/ul Normal 1.2-3.8 [facility] Comment on above: Performed By: #### C BC ####[facility] Mbemvrmisi045[address] [place], [place] [address]DrNancy Frazier Lymphocytes/100 WBC (Bld) 25.7 % Normal 20.5-60.0 [facility] Comment on above: Performed By: #### C BC ####[facility] Nfrqdyluzb27[address] [place], [place] [address]DrNancy Frazier MANUAL DIFF REQ NO Normal [facility] Comment on above: Performed By: #### C BC ####[facility] Vuxcuifyft3117 [place] [address]DrNancy Frazier MCH (RBC) [Entitic mass] 29.2 pg Normal 25.9-34.0 [facility] Comment on above: Performed By: #### C BC ####[facility] Tivyxsrenj9912 [place] [address]DrNancy Frazier MCHC (RBC) [Mass/Vol] 34.0 g/dL Normal 29.9-35.2 [facility] Comment on above: Performed By: #### C BC ####[facility] Bvoaqflvhw0171 [place] [address]DrNancy Frazier MCV (RBC) [Entitic vol] 85.9 fL Normal 80.0-94.0 [facility] Comment on above: Performed By: #### C BC ####[facility] Fsewdugktl8942 [place] [address]DrNancy Frazier MONO # 1.0 103/ul Critically high 0.3-0.8 [facility] Comment on above: Performed By: #### C BC ####[facility] Fkcjgzdgaq436[address] [place], [place] [address]DrNancy Frazier Monocytes/100 WBC (Bld) 8.6 % Normal 1.7-12.0 [facility] Comment on above: Performed By: #### C BC ####[facility] Odgvhzqqrm814[address] [place], [place] [address]DrNancy Frazier NEUT # 7.0 103/ul Critically high 1.4-6.5 [facility] Comment on above: Performed By: #### C BC ####[facility] Lkmdfuqcch488[address] [place], [place] [address]DrNancy Frazier Neutrophils/100 WBC (Bld) 63.1 % Normal 43.0-75.0 [facility] Comment on above: Performed By: #### C BC ####[facility] Qvmauyhbth1859[address] [place], [place] [address]DrNancy Frazier Platelet mean volume (Bld) [Entitic vol] 10.4 fL Normal 9.5-13.5 [facility] Comment on above: Performed By: #### C BC ####[facility] Xgdsawhdun75[address] [place], [place] [address]DrNancy Frazier PLT 308 103/ul Normal 150-450 [facility] Comment on above: Performed By: #### C BC ####[facility] Yaodprvgag154[address] [place], [place] [address]DrNancy Frazier RBC 4.90 106/ul Normal 4.70-6.10 [facility] Comment on above: Performed By: #### C BC ####[facility] Ofrziasame7619 [place] [address]Dr. Chrissy Frazier WBC 11.1 103/ul Critically high 4.0-11.0 [facility] Comment on above: Performed By: #### C BC ####[facility] Jicnhezwfu7394 [place] [address]DrNancy Frazier PROF 14(COMP METB)on 022 Albumin [Mass/Vol] 3.5 g/dL Normal 3.4-5.0 [facility] Comment on above: Performed By: #### C MP ####[facility] Prrhekoypt26[address] [place], [place] [address]Dr. Chrissy Frazier Albumin/Globulin [Mass ratio] 0.9 {ratio} Normal [facility] Comment on above: Performed By: #### C MP ####[facility] Mtmwbzyoyd1060[address] [place], [place] [address]Dr. Chrissy Frazier ALP [Catalytic activity/Vol] 68 U/L Normal 46-116 [facility] Comment on above: Performed By: #### C MP ####[facility] Xhcemgvdqz1605[address] [place], [place] [address]Dr. Chrissy Frazier ALT [Catalytic activity/Vol] 113 U/L Critically high 16-63 [facility] Comment on above: Performed By: #### C MP ####[facility] Uziyrhwmmw217[address] [place], [place] [address]Dr. Chrissy Frazier Anion gap [Moles/Vol] 14.0 mmol/L Normal [facility] Comment on above: Performed By: #### C MP ####[facility] Fyeopkdjzr0545[address] [place], [place] [address]Dr. Chrissy Frazier AST [Catalytic activity/Vol] 31 U/L Normal 15-37 [facility] Comment on above: Performed By: #### C MP ####[facility] Hjmwkvfajz0133[address] [place], [place] [address]Dr. Chrissy Frazier Bilirubin [Mass/Vol] 0.6 mg/dL Normal 0.2-1.0 [facility] Comment on above: Performed By: #### C MP ####[facility] Gbkieemgwl019[address] [place], [place] [address]Dr. Chrissy Frazier Calcium [Mass/Vol] 8.4 mg/dL Critically low 8.5-10.1 [facility] Comment on above: Performed By: #### C MP ####[facility] Hjvoftsphh6040 [place] [address]Dr. Chrissy Frazier Chloride [Moles/Vol] 101 mmol/L Normal 98-107 [facility] Comment on above: Performed By: #### C MP ####[facility] Qcruehwwyr045[address] [place], [place] [address]Dr. Chrissy Frazier CO2 [Moles/Vol] 24.2 mmol/L Normal 21.0-32.0 [facility] Comment on above: Performed By: #### C MP ####[facility] Iejhkusabw0679[address] [place], [place] [address]Dr. Chrissy Frazier Creatinine [Mass/Vol] 1.15 mg/dL Normal 0.70-1.30 [facility] Comment on above: Performed By: #### C MP ####[facility] Mjhmxlnjml3585[address] [place], [place] [address]Dr. Chrissy Frazier EGFR-AF WELSH >60 Normal >=60 [facility] Comment on above: Performed By: #### C MP ####[facility] Vccvdgyzme4930[address] [place], [place] [address]Dr. Chrissy Frazier EGFR-NON AF WELSH >60 Normal >=60 [facility] Comment on above: Performed By: #### C MP ####[facility] Ifrzdgkjxv4149[address] [place], [place] [address]Dr. Chrissy Frazier Globulin (S) [Mass/Vol] 3.8 g/dL Normal [facility] Comment on above: Performed By: #### C MP ####[facility] Xeodihwuhu5711[address] [place], [place] [address]Dr. Chrissy Frazier Glucose [Mass/Vol] 100 mg/dL Normal 74-106 [facility] Comment on above: Performed By: #### C MP ####[facility] Sejlkukllq2120 [place] [address]Dr. Chrissy Frazier Potassium [Moles/Vol] 3.2 mmol/L Critically low 3.5-5.1 [facility] Comment on above: Performed By: #### C MP ####[facility] Xgvljuueps4199 [place] [address]Dr. Chrissy Frazier Protein [Mass/Vol] 7.3 g/dL Normal 6.4-8.2 [facility] Comment on above: Performed By: #### C MP ####[facility] Mryodvvdpz4780[address] [place], [place] [address]Dr. Chrissy Freddie Sodium [Moles/Vol] 136 mmol/L Normal 136-145 [facility] Comment on above: Performed By: #### C MP ####[facility] Absltbxeyx1712[address] [place], [place] [address]Dr. Chrissy Freddie Urea nitrogen [Mass/Vol] 13.0 mg/dL Normal 7.0-18.0 [facility] Comment on above: Performed By: #### C MP ####[facility] Xjcgirqdeg8680[address] [place], [place] [address]Dr. Chrissy Freddie Urea nitrogen/Creatinine [Mass ratio] 11.3 mg/mg Normal [facility] Comment on above: Performed By: #### C MP ####[facility] Roumsykaxr7533[address] [place], [place] [address]Dr. Chrissy Freddie AMMONIAon 03-30-2022 Ammonia (P) [Mass/Vol] ug/dL Critically low 11-32 [facility] Comment on above: Performed By: #### A MM ####[facility] Npdebbfrkw189[address] [place], [place] [address]Dr. Chrissy Freddie CBC AUTO DIFFon 03-30-2022 BASO # 0.1 103/ul Normal 0.0-0.1 [facility] Comment on above: Performed By: #### C BC ####[facility] Ugioardbky825[address] [place], [place] [address]Dr. Tishrowan Frazier Basophils/100 WBC (Bld) 0.5 % Normal 0.2-2.0 [facility] Comment on above: Performed By: #### C BC ####[facility] Vcsjjatere1904 [place] [address]Dr. Chrissy Frazier EO # 0.1 103/ul Normal 0.0-0.7 [facility] Comment on above: Performed By: #### C BC ####[facility] Nclmboahxb4522[address] [place], [place] [address]Dr. Chrissy Frazier Eosinophils/100 WBC (Bld) 1.1 % Normal 0.9-7.0 [facility] Comment on above: Performed By: #### C BC ####[facility] Bgxtlegztp0565[address] [place], [place] [address]Dr. Chrissy Frazier Erythrocyte distribution width (RBC) [Ratio] 13.4 % Normal 11.0-15.0 [facility] Comment on above: Performed By: #### C BC ####[facility] Njoppyesla260[address] [place], [place] [address]Dr. Chrissy Frazier Hematocrit (Bld) [Volume fraction] 45.8 % Normal 42.0-54.0 [facility] Comment on above: Performed By: #### C BC ####[facility] Poiojunsnx9529[address] [place], [place] [address]Dr. Tishrowan Frazier Hemoglobin (Bld) [Mass/Vol] 14.9 g/dL Normal 14.0-18.0 [facility] Comment on above: Performed By: #### C BC ####[facility] Rxpqkwgzpw416[address] [place], [place] [address]Dr. Chrissy Frazier IG # 0.05 10e3/ul Critically high 0.00-0.03 [facility] Comment on above: Performed By: #### C BC ####[facility] Zyyawowzou0980[address] [place], [place] [address]Dr. Chrissy Frazier IG % 0.5 % Normal 0.0-0.5 [facility] Comment on above: Performed By: #### C BC ####[facility] Mgktzylpby6060[address] [place], [place] [address]Dr. Chrissy Frazier LYMPH # 3.0 103/ul Normal 1.2-3.8 [facility] Comment on above: Performed By: #### C BC ####[facility] Spedlrxeit3976 [place] [address]Dr. Chrissy Frazier Lymphocytes/100 WBC (Bld) 30.2 % Normal 20.5-60.0 [facility] Comment on above: Performed By: #### C BC ####[facility] Fxizjwqmca3058 [place] [address]Dr. Chrissy Frazier MANUAL DIFF REQ NO Normal [facility] Comment on above: Performed By: #### C BC ####[facility] Wbrujmjfjs1410 [place] [id number]. Chrissy Frazier MCH (RBC) [Entitic mass] 28.4 pg Normal 25.9-34.0 [facility] Comment on above: Performed By: #### C BC ####[facility] Qlmalepszg175[address] [place], [place] [address]Dr. Chrissy Frazier MCHC (RBC) [Mass/Vol] 32.5 g/dL Normal 29.9-35.2 [facility] Comment on above: Performed By: #### C BC ####[facility] Epckatntyy522[address] [place], [place] [address]Dr. Chrissy Frazier MCV (RBC) [Entitic vol] 87.4 fL Normal 80.0-94.0 [facility] Comment on above: Performed By: #### C BC ####[facility] Lstrpwafdd036[address] [place], [place] [address]Dr. Chrissy Frazier MONO # 0.8 103/ul Normal 0.3-0.8 [facility] Comment on above: Performed By: #### C BC ####[facility] Mtiirtkjtk945[address] [place], [place] [address]Dr. Chrissy Frazier Monocytes/100 WBC (Bld) 7.9 % Normal 1.7-12.0 [facility] Comment on above: Performed By: #### C BC ####[facility] Gmsvulhfow156[address] [place], [place] [address]Dr. Chrissy Frazier NEUT # 5.9 103/ul Normal 1.4-6.5 [facility] Comment on above: Performed By: #### C BC ####[facility] Jucqcwghjf8061 [place] [address]Dr. Chrissy Freddie Neutrophils/100 WBC (Bld) 59.8 % Normal 43.0-75.0 [facility] Comment on above: Performed By: #### C BC ####[facility] Asgapgigrh0701 [place] [address]Dr. Chrissy Freddie Platelet mean volume (Bld) [Entitic vol] 10.1 fL Normal 9.5-13.5 [facility] Comment on above: Performed By: #### C BC ####[facility] Zsmewcrpfg9958 [place] [address]Dr. Chrissy Frazier PLT 320 103/ul Normal 150-450 [facility] Comment on above: Performed By: #### C BC ####[facility] Cdnamaxude294[address] [place], [place] [address]Dr. Chrissy Frazier RBC 5.24 106/ul Normal 4.70-6.10 [facility] Comment on above: Performed By: #### C BC ####[facility] Xlmlqerhuc6923[address] [place], [place] [address]Dr. Tishrowan Freddie WBC 9.9 103/ul Normal 4.0-11.0 [facility] Comment on above: Performed By: #### C BC ####[facility] Ouxercjuan510[address] [place], [place] [address]Dr. Chrissy Frazier PROF 14(COMP METB)on 022 Albumin [Mass/Vol] 3.9 g/dL Normal 3.4-5.0 [facility] Comment on above: Performed By: #### C MP ####[facility] Gubdqgxfkw068[address] [place], [place] [address]Dr. Chrissy Frazier Albumin/Globulin [Mass ratio] 1.1 {ratio} Normal [facility] Comment on above: Performed By: #### C MP ####[facility] Tnxumtmoqo6764 [place] [id number]. Chrissy Frazier ALP [Catalytic activity/Vol] 88 U/L Normal 46-116 [facility] Comment on above: Performed By: #### C MP ####[facility] Bewpowivfx4726 [place] [id number]. Chrissy Frazier ALT [Catalytic activity/Vol] 161 U/L Critically high 16-63 [facility] Comment on above: Performed By: #### C MP ####[facility] Uqrivnbhht0378 [place] [id number]. Chrissy Frazier Anion gap [Moles/Vol] 12.3 mmol/L Normal [facility] Comment on above: Performed By: #### C MP ####[facility] Ubhbhbxmlf8655 [place] [id number]. Chrissy Frazier AST [Catalytic activity/Vol] 64 U/L Critically high 15-37 [facility] Comment on above: Performed By: #### C MP ####[facility] Pffdxhbfpe7844 [place] [id number]. Chrissy Frazier Bilirubin [Mass/Vol] 0.8 mg/dL Normal 0.2-1.0 [facility] Comment on above: Performed By: #### C MP ####[facility] Xcaljboixo3601 [place] [phone]. Chrissy Frazier Calcium [Mass/Vol] 8.4 mg/dL Critically low 8.5-10.1 [facility] Comment on above: Performed By: #### C MP ####[facility] Udwcmycgwi0354 [place] [phone]. Chrissy Frazier Chloride [Moles/Vol] 103 mmol/L Normal 98-107 [facility] Comment on above: Performed By: #### C MP ####[facility] Gyfindldvr1025 [place] [phone]. Chrissy Frazier CO2 [Moles/Vol] 26.5 mmol/L Normal 21.0-32.0 [facility] Comment on above: Performed By: #### C MP ####[facility] Sbugthwged45[address] [place] [id number]. Chrissy Freddie Creatinine [Mass/Vol] 1.24 mg/dL Normal 0.70-1.30 [facility] Comment on above: Performed By: #### C MP ####[facility] Wqjnxsomrg1843 [place] [address]Dr. Chrissy Frazier EGFR-AF WELSH >60 Normal >=60 [facility] Comment on above: Performed By: #### C MP ####[facility] Iqucydhuum7234 [place] [address]Dr. Chrissy Frazier EGFR-NON AF WELSH >60 Normal >=60 [facility] Comment on above: Performed By: #### C MP ####[facility] Ikkiyfenfg8358 [place] [address]Dr. Chrissy Frazier Globulin (S) [Mass/Vol] 3.7 g/dL Normal [facility] Comment on above: Performed By: #### C MP ####[facility] Nuqzgkyhlu6946 [place] [address]Dr. Chrissy Frazier Glucose [Mass/Vol] 108 mg/dL Critically high 74-106 [facility] Comment on above: Performed By: #### C MP ####[facility] Kjybancjtl33[address] [place] [address]Dr. Chrissy Frazier Potassium [Moles/Vol] 3.8 mmol/L Normal 3.5-5.1 [facility] Comment on above: Performed By: #### C MP ####[facility] Bpjxmtgeqo9348 [place] [address]Dr. Chrissy Frazier Protein [Mass/Vol] 7.6 g/dL Normal 6.4-8.2 [facility] Comment on above: Performed By: #### C MP ####[facility] Ocwxxjjzhp5923 [place] [address]Dr. Chrissy Frazier Sodium [Moles/Vol] 138 mmol/L Normal 136-145 [facility] Comment on above: Performed By: #### C MP ####[facility] Kwtflibfef[address] [place], [place] [address]Dr. Chrissy Frazier Urea nitrogen [Mass/Vol] 12.0 mg/dL Normal 7.0-18.0 [facility] Comment on above: Performed By: #### C MP ####[facility] Xsmlcgeasg0239 [place] [address]Dr. Chrissy Frazier Urea nitrogen/Creatinine [Mass ratio] 9.7 mg/mg Normal [facility] Comment on above: Performed By: #### C MP ####[facility] Hhozcreoct9214 [place] [address]Dr. Chrissy Frazier AMMONIAon 03-29-2022 Ammonia (P) [Moles/Vol] 27 umol/L Normal 11-32 [facility] Comment on above: Performed By: #### A MM ####[facility] Zgbghylhjy[address] [place], [place] [address]Dr. Chrissy Frazier AMYLASEon 03-29-2022 Amylase [Catalytic activity/Vol] 29 U/L Normal 25-115 [facility] Comment on above: Performed By: #### L IPA, TERRENCE ####[facility] Ibzchuzvjd887[address] [place], [place] [address]Dr. Chrissy Frazier CBC AUTO DIFFon 03-29-2022 BASO # 0.0 103/ul Normal 0.0-0.1 [facility] Comment on above: Performed By: #### C BC ####[facility] Gsxvsggbsa832[address] [place], [place] [address]Dr. Chrissy Frazier Basophils/100 WBC (Bld) 0.2 % Normal 0.2-2.0 [facility] Comment on above: Performed By: #### C BC ####[facility] Plnmdrrrvc145[address] [place], [place] [address]Dr. Chrissy Frazier EO # 0.0 103/ul Normal 0.0-0.7 [facility] Comment on above: Performed By: #### C BC ####[facility] Pgpcaqdtou707[address] [place], [place] [address]Dr. Chrissy Frazier Eosinophils/100 WBC (Bld) 0.4 % Critically low 0.9-7.0 [facility] Comment on above: Performed By: #### C BC ####[facility] Wlqxkvmubj9[address] [place], [place] [address]Dr. Chrissy Frazier Erythrocyte distribution width (RBC) [Ratio] 13.6 % Normal 11.0-15.0 [facility] Comment on above: Performed By: #### C BC ####[facility] Kuzrxihesx4534 [place] [address]Dr. Chrissy Frazier Hematocrit (Bld) [Volume fraction] 45.2 % Normal 42.0-54.0 [facility] Comment on above: Performed By: #### C BC ####[facility] Ltxfhvuekz3895 [place] [address]Dr. Chrissy Frazier Hemoglobin (Bld) [Mass/Vol] 14.8 g/dL Normal 14.0-18.0 [facility] Comment on above: Performed By: #### C BC ####[facility] Xalzoiwkch414[address] [place], [place] [address]Dr. Chrissy Frazier IG # 0.03 10e3/ul Normal 0.00-0.03 [facility] Comment on above: Performed By: #### C BC ####[facility] Okzjyorlds8636[address] [place], [place] [address]Dr. Chrissy Frazier IG % 0.3 % Normal 0.0-0.5 [facility] Comment on above: Performed By: #### C BC ####[facility] Axfsufutla9990[address] [place], [place] [address]Dr. Chrissy Frazier LYMPH # 2.0 103/ul Normal 1.2-3.8 [facility] Comment on above: Performed By: #### C BC ####[facility] Ushnixkdzw927[address] [place], [place] [address]Dr. Chrissy Frazier Lymphocytes/100 WBC (Bld) 18.3 % Critically low 20.5-60.0 [facility] Comment on above: Performed By: #### C BC ####[facility] Vumujzpzgz512[address] [place], [place] [address]Dr. Chrissy Frazier MANUAL DIFF REQ NO Normal [facility] Comment on above: Performed By: #### C BC ####[facility] Vbkqnpjdnb0832 [place] [address]Dr. Chrissy Frazier MCH (RBC) [Entitic mass] 28.5 pg Normal 25.9-34.0 [facility] Comment on above: Performed By: #### C BC ####[facility] Zlnkdnjvrq5646 [place] [address]Dr. Chrissy Frazier MCHC (RBC) [Mass/Vol] 32.7 g/dL Normal 29.9-35.2 [facility] Comment on above: Performed By: #### C BC ####[facility] Pyacifcwnl399[address] [place], [place] [address]DrNancy Frazier MCV (RBC) [Entitic vol] 87.1 fL Normal 80.0-94.0 [facility] Comment on above: Performed By: #### C BC ####[facility] Qzryxtrpjl839[address] [place], [place] [address]DrNancy Frazier MONO # 0.9 103/ul Critically high 0.3-0.8 [facility] Comment on above: Performed By: #### C BC ####[facility] Kyuegizzrv557[address] [place], [place] [address]DrNancy Frazier Monocytes/100 WBC (Bld) 8.6 % Normal 1.7-12.0 [facility] Comment on above: Performed By: #### C BC ####[facility] Cxfhakxtfs426[address] [place], [place] [address]DrNancy Frazier NEUT # 7.8 103/ul Critically high 1.4-6.5 [facility] Comment on above: Performed By: #### C BC ####[facility] Vfqdcgohbz89[address] [place], [place] [address]DrNancy Frazier Neutrophils/100 WBC (Bld) 72.2 % Normal 43.0-75.0 [facility] Comment on above: Performed By: #### C BC ####[facility] Dqnzpxmglo949[address] [place], [place] [address]DrNancy Frazier Platelet mean volume (Bld) [Entitic vol] 10.1 fL Normal 9.5-13.5 [facility] Comment on above: Performed By: #### C BC ####[facility] Aiieihmjfe039[address] [place], [place] [address]DrNancy Frazier PLT 329 103/ul Normal 150-450 [facility] Comment on above: Performed By: #### C BC ####[facility] Pfkginnnmz9326 [place] [phone]. Chrissy Frazier RBC 5.19 106/ul Normal 4.70-6.10 [facility] Comment on above: Performed By: #### C BC ####[facility] Iydvrmvmui5187 [place] [id number]. Chrissy Frazier WBC 10.8 103/ul Normal 4.0-11.0 [facility] Comment on above: Performed By: #### C BC ####[facility] Tcalgbffca8436 [place] [phone]. Chrissy Frazier LIPASEon 03-29-2022 Lipase [Catalytic activity/Vol] 58.0 U/L Critically low 73.0-393.0 [facility] Comment on above: Performed By: #### L IPA, TERRENCE ####[facility] Jitzllbibx166[address] [place], [place] [address]Dr. Chrissy Frazier NM HEPATOBILIARY SCAN W EFon 03-29-2022 NM HEPATOBILIARY SCAN W EF Normal [facility] PROF 14(COMP METB)on 022 Albumin [Mass/Vol] 3.8 g/dL Normal 3.4-5.0 [facility] Comment on above: Performed By: #### C MP ####[facility] Evnsavpwss6478 [place] [address]DrNancy Chrissy Frazier Albumin/Globulin [Mass ratio] 1.0 {ratio} Normal [facility] Comment on above: Performed By: #### C MP ####[facility] Otfiqhsmfr6834 [place] [phone]. Chrissy Frazier ALP [Catalytic activity/Vol] 69 U/L Normal 46-116 [facility] Comment on above: Performed By: #### C MP ####[facility] Qcrizbspxr4219 [place] [phone]. Chrissy Freddie ALT [Catalytic activity/Vol] 117 U/L Critically high 16-63 [facility] Comment on above: Performed By: #### C MP ####[facility] Dabzghbsqp2503 [place] [phone]. Chrissy Frazier Anion gap [Moles/Vol] 16.7 mmol/L Normal [facility] Comment on above: Performed By: #### C MP ####[facility] Uidkrlblof8779 [place] [phone]. Chrissy Frazier AST [Catalytic activity/Vol] 77 U/L Critically high 15-37 [facility] Comment on above: Performed By: #### C MP ####[facility] Rxpotaadpe1851 [place] [phone]. Chrissy Frazier Bilirubin [Mass/Vol] 1.5 mg/dL Critically high 0.2-1.0 [facility] Comment on above: Performed By: #### C MP ####[facility] Feozdrpldh1096 [place] [address]Dr. Chrissy Frazier Calcium [Mass/Vol] 8.1 mg/dL Critically low 8.5-10.1 [facility] Comment on above: Performed By: #### C MP ####[facility] Gmoigztfzc2595 [place] [phone]. Chrissy Frazier Chloride [Moles/Vol] 101 mmol/L Normal 98-107 [facility] Comment on above: Performed By: #### C MP ####[facility] Tdinizruop9633 [place] [phone]. Chrissy Frazier CO2 [Moles/Vol] 24.5 mmol/L Normal 21.0-32.0 [facility] Comment on above: Performed By: #### C MP ####[facility] Fzxkvlujmc9725 [place] [phone]. Chrissy Frazier Creatinine [Mass/Vol] 1.17 mg/dL Normal 0.70-1.30 [facility] Comment on above: Performed By: #### C MP ####[facility] Xnwdcdhjtl3194 [place] [phone]. Chrissy Freddie EGFR-AF WELSH >60 Normal >=60 [facility] Comment on above: Performed By: #### C MP ####[facility] Ajbybnkxte6873 [place] [phone]. Chrissy Frazier EGFR-NON AF WELSH >60 Normal >=60 [facility] Comment on above: Performed By: #### C MP ####[facility] Hwmqdyyebe8456 [place] [address]Dr. Chrissy Frazier Globulin (S) [Mass/Vol] 3.9 g/dL Normal [facility] Comment on above: Performed By: #### C MP ####[facility] Uinlflvtli9179 [place] [address]Dr. Chrissy Frazier Glucose [Mass/Vol] 104 mg/dL Normal 74-106 [facility] Comment on above: Performed By: #### C MP ####[facility] Qvrdyrqmrx5249 [place] [address]Dr. Chrissy Frazier Potassium [Moles/Vol] 3.2 mmol/L Critically low 3.5-5.1 [facility] Comment on above: Performed By: #### C MP ####[facility] Yybntnxlqw910[address] [place], [place] [address]Dr. Chrissy Frazier Protein [Mass/Vol] 7.7 g/dL Normal 6.4-8.2 [facility] Comment on above: Performed By: #### C MP ####[facility] Ubznswekbi54[address] [place], [place] [address]Dr. Chrissy Frazier Sodium [Moles/Vol] 139 mmol/L Normal 136-145 [facility] Comment on above: Performed By: #### C MP ####[facility] Qhcrbndmja57[address] [place], [place] [address]Dr. Chrissy Frazier Urea nitrogen [Mass/Vol] 11.0 mg/dL Normal 7.0-18.0 [facility] Comment on above: Performed By: #### C MP ####[facility] Hbrpeqhlip7[address] [place], [place] [address]Dr. Chrissy Frazier Urea nitrogen/Creatinine [Mass ratio] 9.4 mg/mg Normal [facility] Comment on above: Performed By: #### C MP ####[facility] Dwilmvgead508[address] [place], [place] [address]Dr. Chrissy Frazier US SINGLE QUAD RT UPPERon US SINGLE QUAD RT UPPER Normal [facility] AMMONIAon 03-28-2022 Ammonia (P) [Moles/Vol] 12 umol/L Normal 11-32 [facility] Comment on above: Performed By: #### A MM ####[facility] Jnfbxpcvoi5268 [place] [address]Dr. Chrissy Frazier CBC AUTO DIFFon 03-28-2022 BASO # 0.0 103/ul Normal 0.0-0.1 [facility] Comment on above: Performed By: #### C BC ####[facility] Bpcgpiazso4264[address] [place], [place] [address]Dr. Chrissy Frazier Basophils/100 WBC (Bld) 0.1 % Critically low 0.2-2.0 [facility] Comment on above: Performed By: #### C BC ####[facility] Rtfaanhwmb536[address] [place], [place] [address]Dr. Chrissy Frazier EO # 0.0 103/ul Normal 0.0-0.7 [facility] Comment on above: Performed By: #### C BC ####[facility] Wbapvkfxmu825[address] [place], [place] [address]Dr. Chrissy Frazier Eosinophils/100 WBC (Bld) 0.0 % Critically low 0.9-7.0 [facility] Comment on above: Performed By: #### C BC ####[facility] Gwftjewkgo956[address] [place], [place] [address]Dr. Chrissy Frazier Erythrocyte distribution width (RBC) [Ratio] 14.0 % Normal 11.0-15.0 [facility] Comment on above: Performed By: #### C BC ####[facility] Tprjlsytxk23[address] [place], [place] [address]DrNancy Frazier Hematocrit (Bld) [Volume fraction] 44.2 % Normal 42.0-54.0 [facility] Comment on above: Performed By: #### C BC ####[facility] Ohbicucudm45[address] [place], [place] [address]DrNancy Frazier Hemoglobin (Bld) [Mass/Vol] 14.7 g/dL Normal 14.0-18.0 [facility] Comment on above: Performed By: #### C BC ####[facility] Oqptjqyqub7589 [place] [address]DrNancy Frazier IG # 0.10 10e3/ul Critically high 0.00-0.03 [facility] Comment on above: Performed By: #### C BC ####[facility] Miksvhkyua1030 [place] [address]DrNancy Frazier IG % 0.5 % Normal 0.0-0.5 [facility] Comment on above: Performed By: #### C BC ####[facility] Fhcmxpufup[address] [place], [place] [address]DrNancy Frazier LYMPH # 2.6 103/ul Normal 1.2-3.8 [facility] Comment on above: Performed By: #### C BC ####[facility] Tuodmdmakh5670 [place] [address]DrNancy Frazeir Lymphocytes/100 WBC (Bld) 13.8 % Critically low 20.5-60.0 [facility] Comment on above: Performed By: #### C BC ####[facility] Hhzonvlfsd7904 [place] [address]DrNancy Frazier MANUAL DIFF REQ NO Normal [facility] Comment on above: Performed By: #### C BC ####[facility] Uxucsiympu5699 [place] [address]DrNancy Frazier MCH (RBC) [Entitic mass] 29.0 pg Normal 25.9-34.0 [facility] Comment on above: Performed By: #### C BC ####[facility] Sxpsnxmzwl8965 [place] [address]DrNancy Frazier MCHC (RBC) [Mass/Vol] 33.3 g/dL Normal 29.9-35.2 [facility] Comment on above: Performed By: #### C BC ####[facility] Hifrryffec3681 [place] [address]DrNancy Frazier MCV (RBC) [Entitic vol] 87.2 fL Normal 80.0-94.0 [facility] Comment on above: Performed By: #### C BC ####[facility] Mawgvflnqu5711 [place] [phone] Frazier MONO # 1.1 103/ul Critically high 0.3-0.8 [facility] Comment on above: Performed By: #### C BC ####[facility] Rzvakldwoy3313 [place] [phone] Frazier Monocytes/100 WBC (Bld) 5.9 % Normal 1.7-12.0 [facility] Comment on above: Performed By: #### C BC ####[facility] Xgdusbjdkr6991 [place] [address]DrNancy Frazier NEUT # 15.1 103/ul Critically high 1.4-6.5 [facility] Comment on above: Performed By: #### C BC ####[facility] Xjmafytzzi4877 [place] [address]Dr. Chrissy Frazier Neutrophils/100 WBC (Bld) 79.7 % Critically high 43.0-75.0 [facility] Comment on above: Performed By: #### C BC ####[facility] Nztddrgqbr0118 [place] [id number] Frazier Platelet mean volume (Bld) [Entitic vol] 10.3 fL Normal 9.5-13.5 [facility] Comment on above: Performed By: #### C BC ####[facility] Biwmysbdif7092 [place] [phone]. Chrissy Frazier PLT 358 103/ul Normal 150-450 [facility] Comment on above: Performed By: #### C BC ####[facility] Pcybkthopy4767 [place] [phone] Frazier RBC 5.07 106/ul Normal 4.70-6.10 [facility] Comment on above: Performed By: #### C BC ####[facility] Bactjdesgb7659 [place] [phone] Frazier WBC 18.9 103/ul Critically high 4.0-11.0 [facility] Comment on above: Performed By: #### C BC ####[facility] Wrkwqcmlwm7188 [place] [address]DrNancy Frazier PROF 14(COMP METB)on 022 Albumin [Mass/Vol] 3.9 g/dL Normal 3.4-5.0 [facility] Comment on above: Performed By: #### C MP ####[facility] Ybmegyhvqg8675 [place] [address]DrNancy Frazier Albumin/Globulin [Mass ratio] 1.1 {ratio} Normal [facility] Comment on above: Performed By: #### C MP ####[facility] Hgjrvlmked[address] [place], [place] [address]DrNancy Frazier ALP [Catalytic activity/Vol] 65 U/L Normal 46-116 [facility] Comment on above: Performed By: #### C MP ####[facility] Ulxsuuvsxi25[address] [place], [place] [address]Dr. Chrissy Frazier ALT [Catalytic activity/Vol] 46 U/L Normal 16-63 [facility] Comment on above: Performed By: #### C MP ####[facility] Fwyvnegwqv239[address] [place], [place] [address]DrNancy Frazier Anion gap [Moles/Vol] 13.2 mmol/L Normal [facility] Comment on above: Performed By: #### C MP ####[facility] Izeoiykvjd6984 [place] [address]DrNancy Frazier AST [Catalytic activity/Vol] 33 U/L Normal 15-37 [facility] Comment on above: Performed By: #### C MP ####[facility] Spqerqtchu1320 [place] [id number] Frazier Bilirubin [Mass/Vol] 0.8 mg/dL Normal 0.2-1.0 [facility] Comment on above: Performed By: #### C MP ####[facility] Istjmxyavm5545 [place] [id number] Frazier Calcium [Mass/Vol] 8.1 mg/dL Critically low 8.5-10.1 Th [facility] Comment on above: Performed By: #### C MP ####[facility] Bccliycjhh7379 [place] [address]Dr. Chrissy Frazier Chloride [Moles/Vol] 102 mmol/L Normal 98-107 [facility] Comment on above: Performed By: #### C MP ####[facility] Zjwyyxnffy0672 [place] [address]Dr. Chrissy Frazier CO2 [Moles/Vol] 24.0 mmol/L Normal 21.0-32.0 [facility] Comment on above: Performed By: #### C MP ####[facility] Wvzgbddmkt4051 [place] [address]Dr. Chrissy Frazier Creatinine [Mass/Vol] 1.26 mg/dL Normal 0.70-1.30 [facility] Comment on above: Performed By: #### C MP ####[facility] Eaofrqgeit64[address] [place], [place] [address]Dr. Chrissy Frazier EGFR-AF WELSH >60 Normal >=60 [facility] Comment on above: Performed By: #### C MP ####[facility] Cmhqjqgbvj34[address] [place], [place] [address]Dr. Chrissy Frazier EGFR-NON AF WELSH >60 Normal >=60 [facility] Comment on above: Performed By: #### C MP ####[facility] Eymtiuipum719[address] [place], [place] [address]Dr. Chrissy Frazier Globulin (S) [Mass/Vol] 3.7 g/dL Normal [facility] Comment on above: Performed By: #### C MP ####[facility] Udsquqxbau3268 [place] [address]Dr. Chrissy Frazier Glucose [Mass/Vol] 119 mg/dL Critically high 74-106 T [facility] Comment on above: Performed By: #### C MP ####[facility] Rvfldnbnhd6101 [place] [address]Dr. Tishrowan Frazier Potassium [Moles/Vol] 3.2 mmol/L Critically low 3.5-5.1 [facility] Comment on above: Performed By: #### C MP ####[facility] Leemiwdgdq8016 [place] [address]Dr. Chrissy Frazier Protein [Mass/Vol] 7.6 g/dL Normal 6.4-8.2 [facility] Comment on above: Performed By: #### C MP ####[facility] Yfucyssuqp8742 [place] [address]Dr. Chrissy Frazier Sodium [Moles/Vol] 136 mmol/L Normal 136-145 [facility] Comment on above: Performed By: #### C MP ####[facility] Ktfvsudvej70[address] [place], [place] [address]Dr. Chrissy Frazier Urea nitrogen [Mass/Vol] 14.0 mg/dL Normal 7.0-18.0 [facility] Comment on above: Performed By: #### C MP ####[facility] Mawkkugfau24[address] [place], [place] [address]Dr. Chrissy Frazier Urea nitrogen/Creatinine [Mass ratio] 11.1 mg/mg Normal [facility] Comment on above: Performed By: #### C MP ####[facility] Vlptqnamqt25[address] [place], [place] [address]Dr. Chrissy Frazier CBC W MANUAL DIFFon 03-27-20 22 ATYPICAL LYMPH # Normal [facility] Comment on above: Performed By: #### C COLTENMAN ####[facility] Vjomdfeebw2476 [place] [address]Dr. Chrissy Frazier ATYPICAL LYMPH % Normal [facility] Comment on above: Performed By: #### C BCMAN ####[facility] Pxpiqdqicc3722 [place] [address]Dr. Chrissy Frazier BAND # 0.0 103/ul Normal 0.0-0.3 [facility] Comment on above: Performed By: #### C BCMAN ####[facility] Fbgavnahit38[address] [place], [place] [address]Dr. Chrissy Frazier BAND % 0 % Normal 0-5 [facility] Comment on above: Performed By: #### C ANTONETTE ####[facility] Hcgkjkiqgt32[address] [place], [place] [address]Dr. Chrissy Frazier BASOM # 0.00 103/ul Normal 0.00-0.10 [facility] Comment on above: Performed By: #### C BCLEANDRO ####[facility] Dhbooeaqrv7769 [place] [address]Dr. Chrissy Frazier BASOM % 0.0 % Critically low 0.2-2.0 [facility] Comment on above: Performed By: #### C BCLEANDRO ####[facility] Rpasfmdmdm0083 [place] [address]Dr. Chrissy Frazier BLAST # Normal [facility] Comment on above: Performed By: #### C BCLEANDRO ####[facility] Ljdvnyxlqb1151 [place] [address]Dr. Chrissy Frazier BLAST % Normal [facility] Comment on above: Performed By: #### C ANTONETTE ####[facility] Itfxkqoeuy290[address] [place], [place] [address]Dr. Chrissy Frazier CORRECTED WBC Normal 4.0-11.0 [facility] Comment on above: Performed By: #### C ANTONETTE ####[facility] Qrlvrygcnq2920 [place] [address]Dr. Chrissy Frazier EOS # 0.00 103/ul Normal 0.00-0.70 [facility] Comment on above: Performed By: #### C ANTONETTE ####[facility] Grknbayque064[address] [place], [place] [address]Dr. Chrissy Frazier EOS% 0.0 % Critically low 0.9-7.0 [facility] Comment on above: Performed By: #### C BCLEANDRO ####[facility] Lijrokvjnu0788 [place] [address]Dr. Chrissy Frazier HCT 47.3 % Normal 42.0-54.0 [facility] Comment on above: Performed By: #### C ANTONETTE ####[facility] Pkhdvxclgd80[address] [place], [place] [address]Dr. Chrissy Frazier HGB 16.4 g/dl Normal 14.0-18.0 [facility] Comment on above: Performed By: #### C ANTONETTE ####[facility] Zuvbwzvcqc6793 [place], [place] [address]Mu. Chrissy Frazier LYMPHM # 2.31 103/ul Normal 1.20-3.80 [facility] Comment on above: Performed By: #### C ANTONETTE ####[facility] Tyqtisfspd9643 [place], [place] [address]If. Chrissy Frazier LYMPHM% 9.0 % Critically low 20.5-60.0 [facility] Comment on above: Performed By: #### C ANTONETTE ####[facility] Fgsfaoycxt4805 [place], [place] [address]Rn. Chrissy Frazier MCH 28.6 pg Normal 25.9-34.0 [facility] Comment on above: Performed By: #### C ANTONETTE ####[facility] Ncxojgwdhn8444 [place], [place] [address]Ls. Chrissy Frazier MCHC 34.7 g/dl Normal 29.9-35.2 [facility] Comment on above: Performed By: #### C ANTONETTE ####[facility] Fnejpkpglf1532 [place], [place] [address]Ps. Chrissy Frazier MCV 82.4 fL Normal 80.0-94.0 [facility] Comment on above: Performed By: #### C ANTONETTE ####[facility] Khhcsqerdy9534 [place], [place] [address]Nf. Chrissy Frazier METAMYELOCYTE # Normal [facility] Comment on above: Performed By: #### C ANTONETTE ####[facility] Pjcjlamtzx4995 [place], [place] [address]Qp. Chrissy Frazier METAMYELOCYTE % Normal [facility] Comment on above: Performed By: #### C ANTONETTE ####[facility] Bzopdkocid4515 [place], [place] [address]Ie. Chrissy Frazier MONOM# 3.85 103/ul Critically high 0.30-0.80 [facility] Comment on above: Performed By: #### C ANTONETTE ####[facility] Zdkpeytzmd8477 [place], [place] [address]Pr. Chrissy Frazier MONOM% 15.0 % Critically high 1.7-12.0 [facility] Comment on above: Performed By: #### C ANTONETTE ####[facility] [address] [place] [id number]. Chrissy Frazier MPV 10.6 fL Normal 9.5-13.5 [facility] Comment on above: Performed By: #### C ANTONETTE ####[facility] [address]tuver[address] [place] [id number]. Chrissy Frazier MYELOCYTE # Normal [facility] Comment on above: Performed By: #### C ANTONETTE ####[facility] [address] [place] [id number]. Chrissy Frazier MYELOCYTE % Normal [facility] Comment on above: Performed By: #### C ANTONETTE ####[facility] G[address]cqwapdm[address] [place] [id number]. Chrissy Frazier NRBC Normal [facility] Comment on above: Performed By: #### C ANTONETTE ####[facility] [address]tdlkem[address] [place] [phone]. Chrissy Frazier PLT 471 103/ul Critically high 150-450 [facility] Comment on above: Performed By: #### C ANTONETTE ####[facility] J[address]jujbvph[address] [place] [phone]. Chrissy Frazier RBC 5.74 106/ul Normal 4.70-6.10 [facility] Comment on above: Performed By: #### C ANTONETTE ####[facility] [address]ck[address] [place] [phone]. Chrissy Frazier RDW 13.7 % Normal 11.0-15.0 [facility] Comment on above: Performed By: #### C ANTONETTE ####[facility] [address] [place] [phone]. Chrissy Frazier SEG # 19.53 103/ul Critically high 1.40-6.50 [facility] Comment on above: Performed By: #### C ANTONETTE ####[facility] [address] [place] [phone]. Chrissy Frazier SEG % 76.0 % Critically high 43.0-75.0 [facility] Comment on above: Performed By: #### C BCMAN ####[facility] [address] [place] [address]Dr. Tishrowan Frazier TOXIC GRANULATION SLIGHT Normal [facility] Comment on above: Result Comment: few vacoules Performed By: #### C BCMAN ####[facility] Rx[address]qvyxv[address] [place] [address]Dr. Tishrowan Frazier WBC 25.7 103/ul Critically high 4.0-11.0 [facility] Comment on above: Performed By: #### C BCMAN ####[facility] [address] [place] [address]Dr. Chrissy Frazier LACTATE/LACTIC ACIDon 2021 Lactate [Moles/Vol] 2.4 mmol/L Critically high 0.4-1.9 [facility] Comment on above: Performed By: #### L ACT ####[facility] [address] [place], [place] [address]Dr. Chrissy Frazier Lactate [Moles/Vol] 3.5 mmol/L Critically high 0.4-1.9 [facility] Comment on above: Performed By: #### L ACT ####[facility] [address] [place], [place] [address]Dr. Chrissy Frazier LIPASEon 03-27-2022 Lipase [Catalytic activity/Vol] 43.0 U/L Critically low 73.0-393.0 [facility] Comment on above: Performed By: #### C MANA LIPA ####[facility] [address]orqa[address] [place] [address]Dr. Chrissy Frazier PROF 14(COMP METB)on 022 Albumin [Mass/Vol] 4.7 g/dL Normal 3.4-5.0 [facility] Comment on above: Performed By: #### C MANA LIPA ####[facility] Rmksoosgt[address] [place], [place] [address]Dr. Chrissy Frazier Albumin/Globulin [Mass ratio] 1.1 {ratio} Normal [facility] Comment on above: Performed By: #### C MP, LIPA ####[facility] [address] [place] [address]Dr. Chrissy Frazier ALP [Catalytic activity/Vol] 69 U/L Normal 46-116 [facility] Comment on above: Performed By: #### C MP, LIPA ####[facility] [address]obhueu[address] [place] [address]Dr. Chrissy Frazier ALT [Catalytic activity/Vol] 47 U/L Normal 16-63 [facility] Comment on above: Performed By: #### C MP, LIPA ####[facility] [address]ef[address]tx[address] [place] [address]Dr. Chrissy Frazier Anion gap [Moles/Vol] 23.2 mmol/L Normal [facility] Comment on above: Performed By: #### C MP, LIPA ####[facility] [address] [place], [place] [address]Dr. Chrissy Frazier AST [Catalytic activity/Vol] 23 U/L Normal 15-37 [facility] Comment on above: Performed By: #### C MP, LIPA ####[facility] [address] [place], [place] [address]Dr. Chrissy Frazier Bilirubin [Mass/Vol] 0.7 mg/dL Normal 0.2-1.0 [facility] Comment on above: Performed By: #### C MP, LIPA ####[facility] [address] [place], [place] [address]Dr. Chrissy Frazier Calcium [Mass/Vol] 9.2 mg/dL Normal 8.5-10.1 [facility] Comment on above: Performed By: #### C MP, LIPA ####[facility] [address] [place] [address]Dr. Chrissy Freddie Chloride [Moles/Vol] 97 mmol/L Critically low 98-107 [facility] Comment on above: Performed By: #### C MP, LIPA ####[facility] [address]ore[address] [place] [address]Dr. Tishrowan Frazier CO2 [Moles/Vol] 18.2 mmol/L Critically low 21.0-32.0 [facility] Comment on above: Performed By: #### C MP, LIPA ####[facility] [address] [place] [address]Dr. Tishrowan Frazier Creatinine [Mass/Vol] 1.77 mg/dL Critically high 0.70-1.30 [facility] Comment on above: Performed By: #### C MP, LIPA ####[facility] [address]xnuvsy[address] [place], [place] [address]Dr. Chrissy Freddie EGFR-AF WELSH 54 mL/min/1.73m2 Critically low >=60 [facility] Comment on above: Performed By: #### C MP, LIPA ####[facility] [address] [place], [place] [address]Dr. Chrissy Frazier EGFR-NON AF WELSH 45 mL/min/1.73m2 Critically low >=60 [facility] Comment on above: Performed By: #### C MP, LIPA ####[facility] [address]xru[address] [place], [place] [address]Dr. Tishrowan Frazier Globulin (S) [Mass/Vol] 4.4 g/dL Normal [facility] Comment on above: Performed By: #### C MP, LIPA ####[facility] [address] [place], [place] [address]Dr. Tishrowan Frazier Glucose [Mass/Vol] 131 mg/dL Critically high 74-106 [facility] Comment on above: Performed By: #### C MP, LIPA ####[facility] I[address]crudzq[address] [place], [place] [address]Dr. Tishrowan Frazier Potassium [Moles/Vol] 3.4 mmol/L Critically low 3.5-5.1 [facility] Comment on above: Performed By: #### C MP, LIPA ####[facility] [address] [place], [place] [address]Dr. Chrissy Frazier Protein [Mass/Vol] 9.1 g/dL Critically high 6.4-8.2 [facility] Comment on above: Performed By: #### C MP, LIPA ####[facility] [address] [place] [phone]. Chrissy Frazier Sodium [Moles/Vol] 135 mmol/L Critically low 136-145 [facility] Comment on above: Performed By: #### C MANA, OSWALD ####[facility] [address] [place], [place] [address]Je. Chrissy Frazier Urea nitrogen [Mass/Vol] 19.0 mg/dL Critically high 7.0-18.0 [facility] Comment on above: Performed By: #### C MANA, OSWALD ####[facility] [address] [place] [phone]. Chrissy Frazier Urea nitrogen/Creatinine [Mass ratio] 10.7 mg/mg Normal [facility] Comment on above: Performed By: #### C MANA, OSWALD ####[facility] [address] [place], [place] [address]Dr. Chrissy Frazier BMPon 11-03-2020 Anion gap [Moles/Vol] 14 mmol/L Normal 6-16 [facility] Comment on above: Performed By: #### 2 [id number], [id number], [id number] #### [facility] [address] [place] [address] Calcium [Mass/Vol] 9.0 mg/dL Normal 8.9-11.1 [facility] Comment on above: Performed By: #### 2 780280, [id number], [id number] #### [facility] [address] [place] [address] Chloride [Moles/Vol] 104 mmol/L Normal 101-111 [facility] Comment on above: Performed By: #### 2 777702, [id number], [id number] #### [facility] [address] [place] [address] CO2 [Moles/Vol] 21 mmol/L Normal 21-31 [facility] Comment on above: Performed By: #### 2 658848, [id number], [id number] #### [facility] [address] [place] [address] Creatinine [Mass/Vol] 1.3 mg/dL Normal 0.5-1.3 [facility] Comment on above: Performed By: #### 2 851344, 8942039, [id number] #### [facility] [address] [place] [address] Glucose [Mass/Vol] 111 mg/dL Normal 55-199 [facility] Comment on above: Result Comment: If t his glucose result represents a fasting glucose, interpretation should refer to the following reference range: 55-99 mg/dL Performed By: #### 2 923850, 9324086, [id number] #### [facility] [address] [place] [address] Potassium [Moles/Vol] 2.9 mmol/L Low 3.5-5.3 [facility] Comment on above: Performed By: #### 2 735121, 8162307, [id number] #### [facility] [address] [place] [address] Sodium [Moles/Vol] 136 mmol/L Normal 135-145 [facility] Comment on above: Performed By: #### 2 258285, [id number], [id number] #### [facility] [address] [place] [address] Urea nitrogen [Mass/Vol] 14 mg/dL Normal 5-21 [facility] Comment on above: Performed By: #### 2 891084, 4793332, [id number] #### [facility] [address] [place] [address] Urea nitrogen/Creatinine [Mass ratio] 11 No Units Normal 10-20 [facility] Comment on above: Performed By: #### 2 857758, 3772450, [id number] #### [facility] [address] [place] [address] Lipase Levelon 11-03-2020 Lipase [Catalytic activity/Vol] 66 unit/L High -58 [facility] Comment on above: Performed By: #### 2 625040, 9110435, [id number] #### [facility] [address] [place] [address] Physician Orderon 11-03-2020 Physician Order [id number] 3#1.00CD:127 Normal [facility] eGFRon 11-03-2020 GFR/1.73 sq M predicted among blacks MDRD (S/P/Bld) [Vol rate/Area] mL/min/{1.73_m2} Normal >=59 [facility] Comment on above: Order Comment: Order added by Discern Expert. Result Comment: eGFR is race adjusted. AA=. Performed By: #### 2 077776, 1084655, [id number] #### [facility] [address] [place] [address] GFR/1.73 sq M predicted among non-blacks MDRD (S/P/Bld) [Vol rate/Area] mL/min/{1.73_m2} Normal >=59 [facility] Comment on above: Order Comment: Order added by Discern Expert. Result Comment: Voice Professor lindsay kidney disease could be indicated at eGFR's of less than 60 mL/min/1.73m2. Kidney failure is indicated at less than 15 mL/min/1.73m2. Performed By: #### 2 131533, 7883099, [id number] #### [facility] [address] [place] [address] Encounters Encounter Date Encounter Type Care Provider Facility Start: 03-07-2024 End: 03-07-2024 ambulatory TUNG MCCOY Not Available Start: 03-30-2023 ambulatory Luis Angel Muniz cility:[facility] Start: 01-03-2023 End: 01-04-[address] MELODY MARIO . Facility:[facility] Start: 01-03-2023 End: 01-04-2023 ambulatory RAQUEL BANKS Facility:[facility] Start: 12-29-2022 End: 12-30-[address] MELODY MARIO . Facility:[facility] Start: 12-13-2022 End: 12-14-2022 ambulatory RAQUEL BANKS [facility] Start: 11-24-2022 End: 11-24-2022 ambulatory RAQUEL [facility] Start: 11-16-2022 End: 11-17-[address] [...] Facility:[facility] Start: 04-04-2022 End: 04-04-2022 ambulatory ODELL OCAMPO Facility:[facility] Start: 03-27-2022 End: 03-31-[address] MELODY MARIO . Facility:[facility] Payers Date Payer Category Payer Self-pay 1990 Unknown [id number] .16.84 [id number] 1990 Unknown [id number] .16.84 [id number] 1990 Unknown [id number] 2.16.84 [id number] 1990 Unknown [id number] .16.84 0.1.227059.3.579.259 1990 Unknown [id number] .16.84 0.1.232590.3.579.2.593 1990 Unknown [id number] .16.84 0.1.945938.3.579.2.593 1990 Unknown [id number] 2.16.84 0.1.511832.3.579.2.593 1990 Unknown [id number] 2.16.84 0.1.385374.3.579.2.593 1990 Unknown [id number] 2.16.84 0.1.613351.3.579.2.593 1990 Unknown [id number] 2.16.84 0.1.712669.3.579.2.593 1990 Unknown [id number] 2.16.84 0.1.836472.3.579.2.593 1990 Unknown [id number] 2.16.84 0.1.382002.3.579.2.593 1990 Unknown [id number] 2.16.84 0.1.662522.3.579.2.593 1990 Unknown [id number] 2.16.84 0.1.237117.3.579.2.1259 1959 Private Health Insurance [id number] Unknown [id number] 2.16.8 [id number] Progress note 11-24-2022 Note Date & Type Note Facility 11-24-2022 Note [facility] No [facility] Chief Complaint: new patient for abnormal stress test HPI: Paulina Montero is a 32 y.o. male With [...] report that his father had a fatal MD at the age of 54. Stress test [...] factor modification -Plan (more content not included)... [facility] Progress note 11-24-2022 Note Date & [...] All other systems reviewed and are negative. [facility] Summary Purpose Family History No Family [...] content) DATE CREATED AUTHOR 11/04/[address] [facility] DATE CREATED AUTHOR AUTHOR'S ORGANIZ ATION 01/08/2023 [facility] DATE CREATED AUTHOR AUTHOR'S ORGANIZ ATION 02/07/2023 [facility] DATE CREATED AUTHOR AUTHOR'S ORGANIZ ATION 04/01/2023 [facility] DATE CREATED AUTHOR AUTHOR'S ORGANIZ ATION 03/08/2024 [facility] EPIC FOR RECORDS PERTAINING TO PATIENTS WHO ARE [...] BE BASED ON THE PRIMARY CLINICAL RECORDS. [employer] provides no warranty or guarantee of the accuracy or completeness of information in this document.
--- NOTE | 2024-03-09 11:42 | XR_ITS ---
[address] [address] Patient Name: PAULINA CHARLES MRN: [id number] date: 1990 Sex: M Assigned Patient Location: [facility] Current Patient Location: [facility] Accession/Order Number: [id number] Exam Date: 03/09/2024 11:35 Report Date: 03/09/2024 20:44 At the request of: SHALINI IVAN Procedure: XR chest 2V EXAM: XR chest 2V HISTORY: Preop exam COMPARISON: None. TECHNIQUE: Upright PA and lateral chest x-ray FINDINGS: The heart is not enlarged and the vasculature is not distended. No acute infiltrate, effusion or pneumothorax is identified. The osseous structures are grossly intact. XR/XR chest 2V IMPRESSION: No acute infiltrate or evidence of cardiac decompensation. No previous study is available for direct comparison. Electronically authenticated by: SHALINI STAPLES Date: 03/09/2024 20:44
--- NOTE | 2024-03-09 11:53 | P.GSHP_ITS ---
History of Present Illness History of Present Illness Chief complaint: post traumatic osteoarthritis right ankle and foot Narrative: Patient presents for preadmission testing. The patient reports right foot and ankle pain. States he had a remote injury and was doing well, but the pain came on suddenly over the past few months and he noticed some swelling. He does have a walking boot which she occasionally uses and he takes meloxicam to help with pain. He states the pain is worse when he has to walk further distances. He denies numbness, tingling, weakness, or any other complaints. Review of Systems ROS Narrative REVIEW OF SYSTEMS: Negative except as stated in HPI, ten or more systems reviewed. Constitutional: No fever , chills, weakness ENT: No sore throat or epistaxis Cardiovascular: No edema, chest pain, palpitations, or activity intolerance Respiratory: No shortness of breath, cough, or wheezing Gastrointestinal: No abdominal pain, constipation, diarrhea, or vomiting Genitourinary: No dysuria or hematuria Neurological: No numbness, tingling, weakness, or headache Psychiatric: No mood changes [facility] Medical History (Updated 03/09/24 @ 11:52 by Kimi Sierra NP) Acquired deformity of right foot ?M21.961 - Unspecified acquired deformity of right lower leg (ICD-10) Displaced fracture of navicular [scaphoid] of right foot, sequela ?S92.251S - Displaced fracture of navicular [scaphoid] of right foot, sequela (ICD-10) Sprain of tarsometatarsal ligament of right foot ?S93.621A - Sprain of tarsometatarsal ligament of right foot, initial encounter (ICD-10) Post-traumatic osteoarthritis, right ankle and foot ?M19.171 - Post-traumatic osteoarthritis, right ankle and foot (ICD-10) Hemangioma ?D18.00 - Hemangioma unspecified site (ICD-10) Ulnar nerve entrapment ?G56.20 - Lesion of ulnar nerve, unspecified upper limb (ICD-10) Bronchitis ?J40 - Bronchitis, not specified as acute or chronic (ICD-10) Foot pain ?M79.673 - Pain in unspecified foot (ICD-10) Esophagitis ?K20.90 - Esophagitis, unspecified without bleeding (ICD-10) Cyclical vomiting ?R11.15 - Cyclical vomiting syndrome unrelated to migraine (ICD-10) Sciatica ?M54.30 - Sciatica, unspecified side (ICD-10) Insomnia ?G47.00 - Insomnia, unspecified (ICD-10) PTSD (post-traumatic stress disorder) ?F43.10 - Post-traumatic stress disorder, unspecified (ICD-10) Panic attacks ?F41.0 - Panic disorder [episodic paroxysmal anxiety] (ICD-10) Depression ?F32.A - Depression, unspecified (ICD-10) Anxiety ?F41.9 - Anxiety disorder, unspecified (ICD-10) Electronic cigarette use ?Z78.9 - Other specified health status (ICD-10) COVID-19 ?U07.1 - COVID-19 (ICD-10) Sleep apnea ?G47.30 - Sleep apnea, unspecified (ICD-10) GERD (gastroesophageal reflux disease) ?K21.9 - Gastro-esophageal reflux disease without esophagitis (ICD-10) Prediabetes ?R73.03 - Prediabetes (ICD-10) Abdominal pain ?R10.9 - Unspecified abdominal pain (ICD-10) Nausea & vomiting ?R11.2 - Nausea with vomiting, unspecified (ICD-10) Surgical History (Updated 03/09/24 @ 11:52 by Kimi Sierra NP) H/O shoulder surgery ?Z98.890 - Other specified postprocedural states (ICD-10) H/O colonoscopy ?Z98.890 - Other specified postprocedural states (ICD-10) History of esophagogastroduodenoscopy (EGD) ?Z98.890 - Other specified postprocedural states (ICD-10) S/P cubital tunnel release ?Z98.890 - Other specified postprocedural states (ICD-10) History of surgical removal of skin lesion ?Z98.890 - Other specified postprocedural states (ICD-10) ?Z87.2 - Personal history of diseases of the skin and subcutaneous tissue (ICD-10) Family History (Updated 03/09/24 @ 11:26 by Kimi Sierra NP) Other Family history of diabetes mellitus Family history of heart disease Family history of hypertension Family history of myocardial infarction Social History (Updated 03/09/24 @ 11:22 by Kimi Sierra NP) Within the past year, how often did you have a drink containing alcohol: never Score interpretation: A score less than 4 is consistent with normal alcohol consumption. 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 Highest level of school completed/degree received: high school graduate Meds Home Medications and Allergies Home Medications ?Medication ?Instructions ?Recorded ?Confirmed ?Type clonidine HCl 0.1 mg tablet 0.2 mg PO BID 11/17/23 03/09/24 History hydroxyzine pamoate 25 mg capsule 25 mg PO QID PRN anxiety 11/17/23 03/09/24 History lithium carbonate 300 mg capsule 300 mg PO BEDTIME 11/17/23 03/09/24 History propranolol 80 mg tablet 80 mg PO DAILY 11/17/23 03/09/24 History ascorbic acid (vitamin C) 1,000 mg 1 g PO DAILY 03/09/24 03/09/24 History capsule cholecalciferol (vitamin D3) 10 10 mcg PO DAILY 03/09/24 03/09/24 History mcg (400 unit) capsule meloxicam 15 mg tablet 15 mg PO DAILY 03/09/24 03/09/24 History multivitamin (Daily Multi-Vitamin 1 tab PO DAILY 03/09/24 03/09/24 History tablet) Allergies Allergy/AdvReac Type Severity Reaction Status Date / Time Penicillins Allergy Severe Unknown Verified 03/09/24 11:19 clarithromycin [From Biaxin] Allergy Unknown Verified 03/09/24 11:19 sulfamethoxazole Allergy unknown Verified 03/09/24 11:19 [From Bactrim] trimethoprim [From Bactrim] Allergy unknown Verified 03/09/24 11:19 Exam Narrative Exam Narrative: Constitutional: Awake, alert, comfortable, well-appearing, nontoxic, interactive, vital signs as charted Head: Normocephalic, atraumatic Neck: Supple, normal appearance, normal range of motion, no meningeal signs, no lymphadenopathy Respiratory: No respiratory distress, breath sounds clear Cardiovascular: Regular rate and rhythm, strong and regular heart tones Musculoskeletal: Dorsal right foot tenderness with palpation, pain with range of motion, mild tenderness on the lateral foot overlying the 5th metatarsal, Good capillary refill, sensation intact Skin: Scattered salmon colored flat lesions noted to bilateral upper extremities, only visible skin inspected Neuro: No neurological deficits, normal sensation Psychiatric: Oriented ?3, normal affect Assessment and Plan Assessment and Plan (1) Acquired deformity of right foot: (2) Displaced fracture of navicular [scaphoid] of right foot, sequela: (3) Sprain of tarsometatarsal ligament of right foot: (4) Post-traumatic osteoarthritis, right ankle and foot: (5) Foot pain: Plan Naviculocuneiform arthrodesis, stress exam under anesthesia, possible 1st and 2nd TMT arthrodesis, possible bone graft, osteotomies, and soft tissue balancing right side scheduled with Dr. Michele 03/19/2024.
== END 2024-03-09 11:06 | disposition home or self-care (01) ==
LOC: PST 11:05
PROVIDERS: PCP Family Medicine; Visit Provider Podiatrist Foot & Ankle Surgery
DX: Z01.810 Encounter for preprocedural cardiovascular examination (principal); M19.171 Post-traumatic osteoarthritis, right ankle and foot; S92.251 Displaced fracture of navicular [scaphoid] of right foot
CPT/HCPCS: 71046; G0463

== ENCOUNTER 2024-03-19 06:34 | Day surgery (SDC) | payer OTHER, SELFPAY ==
[2024-03-09 11:45] VITALS: BP 135/71; PULSE 72; TEMP 36.4; O2SAT 97; BMI 40.3
[2024-03-19] VITALS (18 sets, daily range): BP systolic 115–165; BP diastolic 42–96; PULSE 54–89; TEMP 36.2–36.4; O2SAT 86–97; BMI 41.1
--- NOTE | 2024-03-19 | FL_ITS ---
[address] [address] Patient Name: PAULINA CHARLES MRN: [id number] date: 1990 Sex: M Assigned Patient [facility] Current Patient Location: [facility] Accession/Order Number: [id number] Exam Date: 03/19/2024 08:00 Report Date: 03/20/2024 07:55 At the request of: SHALINI IVAN Procedure: FL fluoroscopy <1hr NON-READ EXAM: FL fluoroscopy <1hr NON-READ HISTORY: TECHNIQUE: FINDINGS: Please see Operative Report. Electronically authenticated by: RADIOLOGIST NO Date: 03/20/2024 07:55
--- OUTSIDE RECORDS SUMMARY | 2024-03-19 06:37 | XMS_ITS | CCD ---
Author Organization [facility] Care Team Providers Care Systems Auditor Name Role Phone DARREN MOHAMAD Referring Unavailable [...] Unavailable HOY ., DR OLIVER Admitting Unavailable BERKEY, DR RAPHAEL [employer] Unavailable Troy Michaels [...] to adverse reactions to drug (disorder) 09-28-20 [facility] Repository (1 source) Sulfamethoxazole / Trimethoprim; Translations: [SULFAMETHOXAZOLE-TR IMETHOPRIM] Drug Allergy 01-27-20 [facility] Repository (1 source) Clarithromycin Drug Allergy [facility] Repository (1 source) Sulfamethoxazole / Trimethoprim Drug Allergy 05-27-20 17 [facility] Repository (1 source) Sulfamethoxazole Drug Allergy 03-20-20 [facility] Repository (1 source) Trimethoprim Drug Allergy 03-20-20 [facility] Repository Problems Active Problems Problem Classification [...] Other residential (current) drug therapy; Translations: [OTH USP CURRENT DRUG THERAPY] Onset: 02-07-2023 Episodic Other [...] IGG ABS 0.09 Index Value Normal 0.00-0.79 [facility] Comment on above: Result Comment: Nega tive <0.80 Equivocal 0.80 - 0.89 Positive >0.89 Performed By: #### H PYLLC ####[facility] [address]pygq[address] [place], [place] [address]Dr. Chrissy Frazier AMYLASEon 01-04-2023 Amylase [Catalytic activity/Vol] 34 U/L Normal 25-115 [facility] Comment on above: Performed By: #### A MY ####[facility] [address]hud[address]onzq[address] [place], [place] [address]Dr. Chrissy Frazier CBC AUTO DIFFon 01-04-2023 BASO # 0.0 103/ul Normal 0.0-0.1 [facility] Comment on above: Performed By: #### C BC ####[facility] Qygxsuqjpj[address] [place], [place] [address]Dr. Chrissy Frazier Basophils/100 WBC (Bld) 0.1 % Critically low 0.2-2.0 [facility] Comment on above: Performed By: #### C BC ####[facility] Mrfahxvacf[address] [place], [place] [address]Dr. Chrissy Frazier EO # 0.0 103/ul Normal 0.0-0.7 [facility] Comment on above: Performed By: #### C BC ####[facility] Upemwsyoem[address] [place], [place] [address]Dr. Chrissy Frazier Eosinophils/100 WBC (Bld) 0.1 % Critically low 0.9-7.0 [facility] Comment on above: Performed By: #### C BC ####[facility] Wyuezmnask[address] [place], [place] [address]Dr. Chrissy Frazier Erythrocyte distribution width (RBC) [Ratio] 14.0 % Normal 11.0-15.0 [facility] Comment on above: Performed By: #### C BC ####[facility] Lbgoziuemi[address] [place], [place] [address]Dr. Chrissy Frazier Hematocrit (Bld) [Volume fraction] 40.4 % Critically low 42.0-54.0 [facility] Comment on above: Performed By: #### C BC ####[facility] Ktvyhioyge5168 [place] [id number]. Chrissy Frazier Hemoglobin (Bld) [Mass/Vol] 13.8 g/dL Critically low 14.0-18.0 [facility] Comment on above: Performed By: #### C BC ####[facility] Xqriabrvcy9157 [place] [phone]. Chrissy Frazier IG # 0.05 10e3/ul Critically high 0.00-0.03 [facility] Comment on above: Performed By: #### C BC ####[facility] Irozgvrxtp5124 [place] [phone]. Chrissy Frazier IG % 0.3 % Normal 0.0-0.5 [facility] Comment on above: Performed By: #### C BC ####[facility] [address]hqdmz7[address] [place] [address]Dr. Chrissy Frazier LYMPH # 1.7 103/ul Normal 1.2-3.8 [facility] Comment on above: Performed By: #### C BC ####[facility] Rhwghvdkfb5545 [place] [phone]. Chrissy Frazier Lymphocytes/100 WBC (Bld) 11.9 % Critically low 20.5-60.0 [facility] Comment on above: Performed By: #### C BC ####[facility] Xnztmsqecc9169 [place] [phone]. Chrissy Frazier MANUAL DIFF REQ NO Normal [facility] Comment on above: Performed By: #### C BC ####[facility] Hbhqbnbboa0866 [place] [phone]. Chrissy Frazier MCH (RBC) [Entitic mass] 29.3 pg Normal 25.9-34.0 [facility] Comment on above: Performed By: #### C BC ####[facility] Lozlucncxj2574 [place] [phone]. Chrissy Frazier MCHC (RBC) [Mass/Vol] 34.2 g/dL Normal 29.9-35.2 [facility] Comment on above: Performed By: #### C BC ####[facility] Vcfpgqxbei6277 [place] [phone]. Chrissy Frazier MCV (RBC) [Entitic vol] 85.8 fL Normal 80.0-94.0 [facility] Comment on above: Performed By: #### C BC ####[facility] Nhiwxdcwbb9297 [place] [phone]. Chrissy Frazier MONO # 0.6 103/ul Normal 0.3-0.8 [facility] Comment on above: Performed By: #### C BC ####[facility] Psbrdjwhbe8998 [place] [phone]. Chrissy Frazier Monocytes/100 WBC (Bld) 4.2 % Normal 1.7-12.0 [facility] Comment on above: Performed By: #### C BC ####[facility] Pnhopvybmt[address] [place], [place] [address]Dr. Chrissy Frazier NEUT # 12.0 103/ul Critically high 1.4-6.5 [facility] Comment on above: Performed By: #### C BC ####[facility] Jgdkxzpiww7[address] [place], [place] [address]Dr. Chrissy Frazier Neutrophils/100 WBC (Bld) 83.4 % Critically high 43.0-75.0 [facility] Comment on above: Performed By: #### C BC ####[facility] Gfxfykawdf063[address] [place], [place] [address]Dr. Chrissy Frazier Platelet mean volume (Bld) [Entitic vol] 10.4 fL Normal 9.5-13.5 [facility] Comment on above: Performed By: #### C BC ####[facility] Tyaghcofxp[address] [place], [place] [address]Dr. Chrissy Frazier PLT 313 103/ul Normal 150-450 [facility] Comment on above: Performed By: #### C BC ####[facility] Yaqonrtgot[address] [place], [place] [address]Dr. Chrissy Freddie RBC 4.71 106/ul Normal 4.70-6.10 [facility] Comment on above: Performed By: #### C BC ####[facility] Ctlwsrjpqh5099 [place] [phone]. Tishorwan Freddie WBC 14.4 103/ul Critically high 4.0-11.0 [facility] Comment on above: Performed By: #### C BC ####[facility] Qmoryzqtuk[address] [place] [phone]. Tishrowan Frazier CULTURE URINEon 01-04-2023 CULTURE URINE Culture Observations: NO GROWTH. Normal [facility] Comment on above: Performed By: #### U RCX ####[facility] Culvhgjqqg8034 [place] [address]Dr. Chrissy Frazier DRUG SCREEN RAPID (URINE)on 01-04-2023 AMP Negative Normal NEGATIVE [facility] Comment on above: Performed By: #### D REYES UAMIC ####[facility] Lofpopkhru3599 [place] [address]Dr. Chrissy Frazier BAR Negative Normal NEGATIVE [facility] Comment on above: Performed By: #### D REYES UAMIC ####[facility] Ficaxzqvjs[address] [place], [place] [address]Dr. Chrissy Frazier BUP Negative Normal NEGATIVE [facility] Comment on above: Performed By: #### D REYES, UAMIC ####[facility] Pnydclxwbi3133 [place] [address]Dr. Chrissy Frazier BZO Positive Abnormal NEGATIVE [facility] Comment on above: Performed By: #### Amelie CHAMBERS UAMIC ####[facility] Reddhfkryl9404 [place] [address]Dr. Chrissy Frazier LAUREN Negative Normal NEGATIVE [facility] Comment on above: Performed By: #### D REYES UAMIC ####[facility] Lonhghqpza1035 [place] [address]Dr. Chrissy Frazier CUT-OFFS SEE BELOW Normal [facility] Comment on above: Result Comment: AMP [...] ng/mL Performed By: #### Amelie CHAMBERS UAMIC ####[facility] Lylvliutjn[address] [place], [place] [address]Dr. [facility] DRUG CUT HEADER DRUG CLASS TEST SYSTEM CUT-OFF CONCENTRATIONS ARE FOLLOWS: Normal [facility] Comment on above: Performed By: #### Amelie CHAMBERS UAMIC ####[facility] Yluipvdcxa[address] [place], [place] [address]Dr. Chrissy Frazier mAMP Negative Normal NEGATIVE [facility] Comment on above: Performed By: #### Amelie CHAMBERS UAMIC ####[facility] Jyybvovvny40[address] [place], [place] [address]Dr. Chrissy [facility] MTD Negative Normal NEGATIVE [facility] Comment on above: Performed By: #### Amelie CHAMBERS UAMIC ####[facility] Zodebbyyiv13[address] [place], [place] [address]Dr. Chrissy [facility] OPI Negative Normal NEGATIVE [facility] Comment on above: Performed By: #### Amelie CHAMBERS, UAMIC ####[facility] Nzdqtkpzxk[address] [place], [place] [address]Dr. Chrissy [facility] OXY Negative Normal NEGATIVE [facility] Comment on above: Performed By: #### Amelie CHAMBERS, UAMIC ####[facility] Wskdyzybnv[address] [place], [place] [address]Dr. [facility] PCP Negative Normal NEGATIVE [facility] Comment on above: Performed By: #### Amelie CHAMBERS, UAMIC ####[facility] Fzakqsfgnm6[address] [place], [place] [address]Dr. [facility] Negative Normal NEGATIVE [facility] Comment on above: Performed By: #### Amelie CHAMBERS, UAMIC ####[facility] Zmtfuumitg4653 [place] [address]Dr. Chrissy Frazier TCA Positive Abnormal NEGATIVE [facility] Comment on above: Performed By: #### D REYES UAMIC ####[facility] Eoptaskfwq1271 [place] [address]Dr. Chrissy Frazier THC Positive Abnormal NEGATIVE [facility] Comment on above: Performed By: #### D REYES UAMIC ####[facility] Qluuvbwlxf9137 [place] [address]Dr. Chrissy Frazier LIPASEon 01-04-2023 Lipase [Catalytic activity/Vol] 57.0 U/L Critically low 73.0-393.0 [facility] Comment on above: Performed By: #### L IPA ####[facility] Icuhsnrrgn[address] [place], [place] [address]Dr. Chrissy Frazier PROF 14(COMP METB)on 023 Albumin [Mass/Vol] 3.6 g/dL Normal 3.4-5.0 [facility] Comment on above: Performed By: #### C MP ####[facility] Vylmmqgyfc[address] [place], [place] [address]Dr. Chrissy Frazier Albumin/Globulin [Mass ratio] 1.0 {ratio} Normal [facility] Comment on above: Performed By: #### C MP ####[facility] Alzvdhelno[address] [place], [place] [address]Dr. Chrissy Frazier ALP [Catalytic activity/Vol] 67 U/L Normal 46-116 [facility] Comment on above: Performed By: #### C MP ####[facility] Ktftgiqvmt[address] [place], [place] [address]Dr. Chrissy Frazier ALT [Catalytic activity/Vol] 26 U/L Normal 16-63 [facility] Comment on above: Performed By: #### C MP ####[facility] Cqwbxaoqxa[address] [place], [place] [address]Dr. Chrissy Frazier Anion gap [Moles/Vol] 16.3 mmol/L Normal [facility] Comment on above: Performed By: #### C MP ####[facility] Ytucipavcz9662 [place] [address]Dr. Chrissy Frazier AST [Catalytic activity/Vol] 17 U/L Normal 15-37 [facility] Comment on above: Performed By: #### C MP ####[facility] Ceayqrtcxb[address] [place], [place] [address]Dr. Chrissy Frazier Bilirubin [Mass/Vol] 0.4 mg/dL Normal 0.2-1.0 [facility] Comment on above: Performed By: #### C MP ####[facility] Deglpxipzo83[address] [place], [place] [address]Dr. Chrissy Frazier Calcium [Mass/Vol] 8.7 mg/dL Normal 8.5-10.1 [facility] Comment on above: Performed By: #### C MP ####[facility] Skfmrnfjgc01[address] [place], [place] [address]Dr. Chrissy Frazier Chloride [Moles/Vol] 106 mmol/L Normal 98-107 [facility] Comment on above: Performed By: #### C MP ####[facility] Xmreojnhmk188[address] [place], [place] [address]Dr. Chrissy Frazier CO2 [Moles/Vol] 22.6 mmol/L Normal 21.0-32.0 [facility] Comment on above: Performed By: #### C MP ####[facility] Slfbhmudlw[address] [place], [place] [address]Dr. Chrissy Frazier Creatinine [Mass/Vol] 0.99 mg/dL Normal 0.70-1.30 [facility] Comment on above: Performed By: #### C MP ####[facility] Shmlzvnwby[address] [place], [place] [address]Dr. Chrissy Freddie EGFR-AF ESTONIAN >60 Normal >=60 [facility] Comment on above: Performed By: #### C MP ####[facility] Mppjyqyevl[address] [place], [place] [address]Dr. Tishrowan Freddie EGFR-NON AF ESTONIAN >60 Normal >=60 [facility] Comment on above: Performed By: #### C MP ####[facility] Jszjstguwf8[address] [place], [place] [address]Dr. Chrissy Frazier Globulin (S) [Mass/Vol] 3.6 g/dL Normal [facility] Comment on above: Performed By: #### C MP ####[facility] Nefznotqch68[address] [place], [place] [address]Dr. Chrissy Frazier Glucose [Mass/Vol] 138 mg/dL Critically high 74-106 [facility] Comment on above: Performed By: #### C MP ####[facility] Cofngrdpzk75[address] [place], [place] [address]Dr. Chrissy Frazier Potassium [Moles/Vol] 3.9 mmol/L Normal 3.5-5.1 [facility] Comment on above: Performed By: #### C MP ####[facility] Uqmtmumfuw[address] [place], [place] [address]Dr. Chrissy Frazier Protein [Mass/Vol] 7.2 g/dL Normal 6.4-8.2 [facility] Comment on above: Performed By: #### C MP ####[facility] Ryopmcomci[address] [place], [place] [address]Dr. Chrissy Frazier Sodium [Moles/Vol] 141 mmol/L Normal 136-145 [facility] Comment on above: Performed By: #### C MP ####[facility] Qktvfywluw60[address] [place], [place] [address]Dr. Chrissy Frazier Urea nitrogen [Mass/Vol] 10.0 mg/dL Normal 7.0-18.0 [facility] Comment on above: Performed By: #### C MP ####[facility] Pkmufuwxxw9416[address] [place], [place] [address]Dr. Chrissy Frazier Urea nitrogen/Creatinine [Mass ratio] 10.1 mg/mg Normal [facility] Comment on above: Performed By: #### C MP ####[facility] Imsvnkyndp0[address] [place], [place] [address]Dr. Chrissy Frazier UA RANDOM W/MICROSCOPICon BACTERIA TRACE Abnormal NONE SEEN [facility] Comment on above: Performed By: #### D RUGRPD, UAMIC ####[facility] Xxzlcqcmnh86[address] [place], [place] [address]Dr. Chrissy Frazier Bilirubin Ql (U) Negative Normal NEGATIVE [facility] Comment on above: Performed By: #### Amelie LARKIND, UAMIC ####[facility] Asevkpcvpq1847 [place] [address]Dr. Chrissy Frazier CAST NONE SEEN Normal NONE SEEN [facility] Comment on above: Performed By: #### Amelie LARKIND, UAMIC ####[facility] Oogltgoemb5247 [place] [address]Dr. Chrissy Frazier Clarity (U) CLEAR Normal CLEAR [facility] Comment on above: Performed By: #### Amelie CHAMBERS, UAMIC ####[facility] Ermbvoxmwr[address] [place], [place] [address]Dr. Chrissy Frazier Color (U) YELLOW Normal YELLOW [facility] Comment on above: Performed By: #### D REYES, UAMIC ####[facility] Rscgaepqeq23[address] [place], [place] [address]Dr. Chrissy Frazier Crystals LM Nom (Urine sed) NONE SEEN Normal NONE SEEN [facility] Comment on above: Performed By: #### Amelie CHAMBRES, UAMIC ####[facility] Fsjpbwklgk[address] [place], [place] [address]Dr. Chrissy Frazier Epithelial cells LM Ql (Urine sed) NONE SEEN Normal NONE SEEN /RARE [facility] Comment on above: Performed By: #### Amelie CHAMBERS, UAMIC ####[facility] Tgsdddquvz[address] [place], [place] [address]Dr. Chrissy Frazier Glucose Ql (U) Negative Normal NEGATIVE [facility] Comment on above: Performed By: #### Amelie CHAMBERS, UAMIC ####[facility] Kwxisxxzyr3398 [place] [address]Dr. Chrissy Frazier Hemoglobin Ql (U) Negative Normal NEGATIVE [facility] Comment on above: Performed By: #### Amelie CHAMBERS, UAMIC ####[facility] Pznmhvtkwi20[address] [place], [place] [address]Dr. Chrissy Frazier Ketones Ql (U) 15 mg/dl Abnormal NEGATIVE [facility] Comment on above: Performed By: #### Amelie CHAMBERS, UAMIC ####[facility] Htqopxuqnx2448 [place] [address]Dr. Chrissy Freddie LEUKOCYTES Negative Normal NEGATIVE [facility] Comment on above: Performed By: #### Amelie CHAMBERS UAMIC ####[facility] Wqpapqcgik3211 [place] [address]Dr. Chrissy Frazier MUCOUS NONE SEEN Normal NONE SEEN [facility] Comment on above: Performed By: #### Amelie CHAMBERS UAMIC ####[facility] Zosmvofeqq7990 [place] [address]Dr. Chrissy Frazier Nitrite Ql (U) Negative Normal NEGATIVE [facility] Comment on above: Performed By: #### Amelie CHAMBERS UAMIC ####[facility] Oknkiteubq6040 [place] [address]Dr. Chrissy Frazier pH (U) 6.5 [pH] Normal 5-9 [facility] Comment on above: Performed By: #### Amelie CHAMBERS UAMIC ####[facility] Nviwlfkmio1645 [place] [address]Dr. Chrissy Freddie RBC NONE SEEN Abnormal 0-2 [facility] Comment on above: Performed By: #### Amelie CHAMBERS UAMIC ####[facility] Jkawafospf[address] [place], [place] [address]Dr. Tishrowan Frazier SPEC GRAVITY 1.020 Normal 1.005-<=1.025 [facility] Comment on above: Performed By: #### Amelie CHAMBERS UAMIC ####[facility] Wbxjcbonhk3335 [place] [address]Dr. Chrissy Freddie UA PROTEIN Negative Normal NEGATIVE/ TRACE [facility] Comment on above: Performed By: #### Amelie CHAMBERS UAMIC ####[facility] Zvluminygh9313 [place] [address]Dr. Chrissy Frazier Urobilinogen Qn (U) 0.2 {Estrellita'U}/dL Normal 0.2 - 1. 0 [facility] Comment on above: Performed By: #### Amelie CHAMBERS UAMIC ####[facility] Wfomgvygbs[address] [place], [place] [address]Dr. Chrissy Frazier WBC NONE SEEN Normal NONE SEEN [facility] Comment on above: Performed By: #### D RUGRPD, UAMIC ####[facility] Lnomefopgz4758 [place] [address]Dr. Chrissy Frazier AMMONIAon 01-03-2023 Ammonia (P) [Moles/Vol] 17 umol/L Normal 11-32 [facility] Comment on above: Performed By: #### A MM ####[facility] Svcwzksasz0148 [place] [address]Dr. Chrissy Frazier AMYLASEon 01-03-2023 Amylase [Catalytic activity/Vol] 38 U/L Normal 25-115 [facility] Comment on above: Performed By: #### L IPA, TERRENCE, CMP, MG ####[facility] Nbccckxcnz5379 [place] [address]Dr. Chrissy Frazier CBC AUTO DIFFon 01-03-2023 BASO # 0.1 103/ul Normal 0.0-0.1 [facility] Comment on above: Performed By: #### C BC ####[facility] Milzrrgjqv0244 [place] [address]Dr. Chrissy Frazier Basophils/100 WBC (Bld) 0.4 % Normal 0.2-2.0 [facility] Comment on above: Performed By: #### C BC ####[facility] Jawzsfjkbe8477 [place] [address]Dr. Chrissy Frazier EO # 0.1 103/ul Normal 0.0-0.7 [facility] Comment on above: Performed By: #### C BC ####[facility] Awmzkhrygx8[address] [place], [place] [address]Dr. Chrissy Frazier Eosinophils/100 WBC (Bld) 0.3 % Critically low 0.9-7.0 [facility] Comment on above: Performed By: #### C BC ####[facility] Dzrnlonqxn0527 [place] [address]Dr. Chrissy Frazier Erythrocyte distribution width (RBC) [Ratio] 13.7 % Normal 11.0-15.0 [facility] Comment on above: Performed By: #### C BC ####[facility] Fagspiokfi5828 [place] [address]Dr. Chrissy Frazier Hematocrit (Bld) [Volume fraction] 46.1 % Normal 42.0-54.0 [facility] Comment on above: Performed By: #### C BC ####[facility] Mqfsrljjto7490 [place] [id number]. Chrissy Frazier Hemoglobin (Bld) [Mass/Vol] 15.4 g/dL Normal 14.0-18.0 [facility] Comment on above: Performed By: #### C BC ####[facility] Ohwnnebpxq24[address] [place], [place] [address]Dr. Chrissy Frazier IG # 0.11 10e3/ul Critically high 0.00-0.03 [facility] Comment on above: Performed By: #### C BC ####[facility] Jaurcncjys25[address] [place], [place] [address]Dr. Chrissy Freddie IG % 0.6 % Critically high 0.0-0.5 [facility] Comment on above: Performed By: #### C BC ####[facility] Tivhurtawn[address] [place], [place] [address]Dr. Chrissy Frazier LYMPH # 2.5 103/ul Normal 1.2-3.8 [facility] Comment on above: Performed By: #### C BC ####[facility] Opvgymglxo778[address] [place], [place] [address]Dr. Chrissy Freddie Lymphocytes/100 WBC (Bld) 13.9 % Critically low 20.5-60.0 [facility] Comment on above: Performed By: #### C BC ####[facility] Vozlgzywni[address] [place], [place] [address]Dr. Chrissy Frazier MANUAL DIFF REQ NO Normal [facility] Comment on above: Performed By: #### C BC ####[facility] Pthzblbufw4820[address] [place], [place] [address]Dr. Chrissy Frazier MCH (RBC) [Entitic mass] 28.6 pg Normal 25.9-34.0 [facility] Comment on above: Performed By: #### C BC ####[facility] Wjwspvvscr2906 [place] [phone]. Chrissy Freddie MCHC (RBC) [Mass/Vol] 33.4 g/dL Normal 29.9-35.2 [facility] Comment on above: Performed By: #### C BC ####[facility] Wcwvifdrvl8496 [place] [id number]. Chrissy Frazier MCV (RBC) [Entitic vol] 85.7 fL Normal 80.0-94.0 [facility] Comment on above: Performed By: #### C BC ####[facility] Qodbszbeop[address] [place], [place] [address]Dr. Chrissy Frazier MONO # 0.7 103/ul Normal 0.3-0.8 [facility] Comment on above: Performed By: #### C BC ####[facility] Jskvqquieg224[address] [place], [place] [address]Dr. Chrissy Frazier Monocytes/100 WBC (Bld) 4.0 % Normal 1.7-12.0 [facility] Comment on above: Performed By: #### C BC ####[facility] Xfcpufxfzc364[address] [place], [place] [address]Dr. Chrissy Frazier NEUT # 14.3 103/ul Critically high 1.4-6.5 [facility] Comment on above: Performed By: #### C BC ####[facility] Upnapuusgr[address] [place], [place] [address]Dr. Chrissy Frazier Neutrophils/100 WBC (Bld) 80.8 % Critically high 43.0-75.0 [facility] Comment on above: Performed By: #### C BC ####[facility] Avyqukrnyz96[address] [place], [place] [address]Dr. Chrissy Frazier Platelet mean volume (Bld) [Entitic vol] 10.4 fL Normal 9.5-13.5 [facility] Comment on above: Performed By: #### C BC ####[facility] [address]lflqyqkv[address] [place], [place] [address]Dr. Chrissy Frazier PLT 437 103/ul Normal 150-450 [facility] Comment on above: Performed By: #### C BC ####[facility] Hnlnemdhkc7438 [place] [address]Dr. Chrissy Frazier RBC 5.38 106/ul Normal 4.70-6.10 [facility] Comment on above: Performed By: #### C BC ####[facility] Dgygxnrpfc0960 [place] [address]Dr. Chrissy Frazier WBC 17.7 103/ul Critically high 4.0-11.0 [facility] Comment on above: Performed By: #### C BC ####[facility] Fwucrvktfv5121 [place] [address]Dr. Chrissy Frazier CULTURE BLOODon 01-03-2023 Microscopic examination of blood, culture Culture Observations: NO GROWTH AT 5 DAYS. Normal [facility] Comment on above: Performed By: #### B LDCX1 ####[facility] R[address]swsatosj[address] [place], [place] [address]Dr. Chrissy Frazier Performed By: #### B LDCX2 ####[facility] Ypvlbelggk[address] [place], [place] [address]Dr. Chrissy Frazier ECHOCARDIO M/2D COMPLETEon 0 01-03-2023 ECHOCARDIO M/2D COMPLETE Normal [facility] LACTATE/LACTIC ACIDon 2022 Lactate [Moles/Vol] 2.7 mmol/L Critically high 0.4-1.9 [facility] Comment on above: Performed By: #### L ACT ####[facility] Knqqkgnjko[address] [place], [place] [address]Dr. Chrissy Frazier Lactate [Moles/Vol] 6.3 mmol/L Critically high 0.4-1.9 [facility] Comment on above: Performed By: #### L ACT ####[facility] Mzjpvlnxqn[address] [place], [place] [address]Dr. Chrissy Frazier LIPASEon 01-03-2023 Lipase [Catalytic activity/Vol] 74.0 U/L Normal 73.0-393.0 [facility] Comment on above: Performed By: #### L IPA, TERRENCE, CMP, MG ####[facility] Kcvkanvedp0131 [place] [address]Dr. Chrissy Frazier MAGNESIUMon 01-03-2023 Magnesium [Mass/Vol] 1.6 mg/dL Critically low 1.8-2.4 [facility] Comment on above: Performed By: #### L IPA, TERRENCE, CMP, MG ####[facility] Ihfmrqwmdh5390 [place] [address]Dr. Chrissy Frazier PROF 14(COMP METB)on 023 Albumin [Mass/Vol] 4.3 g/dL Normal 3.4-5.0 [facility] Comment on above: Performed By: #### L IPA, TERRENCE, CMP, MG ####[facility] Lwfnqfxzvv2470 [place] [address]Dr. Chrissy Frazier Albumin/Globulin [Mass ratio] 1.1 {ratio} Normal [facility] Comment on above: Performed By: #### L IPA, TERRENCE, CMP, MG ####[facility] Gjaferapjj3613 [place] [address]Dr. Chrissy Frazier ALP [Catalytic activity/Vol] 87 U/L Normal 46-116 [facility] Comment on above: Performed By: #### L IPA, TERRENCE, CMP, MG ####[facility] Muucroiubb[address] [place] [id number]. Chrissy Frazier ALT [Catalytic activity/Vol] 32 U/L Normal 16-63 [facility] Comment on above: Performed By: #### L IPA, TERRENCE, CMP, MG ####[facility] Axrxgteyxu0806 [place] [address]Dr. Chrissy Frazier Anion gap [Moles/Vol] 24.0 mmol/L Normal [facility] Comment on above: Performed By: #### L IPA, TERRENCE, CMP, MG ####[facility] Rbzwgkfkgm7353 [place] [address]Dr. Chrissy Frazier AST [Catalytic activity/Vol] 22 U/L Normal 15-37 [facility] Comment on above: Performed By: #### L IPA, TERRENCE, CMP, MG ####[facility] Mftwbkbzai0871 [place] [address]Dr. Chrissy Frazier Bilirubin [Mass/Vol] 0.6 mg/dL Normal 0.2-1.0 [facility] Comment on above: Performed By: #### L IPA, TERRENCE, CMP, MG ####[facility] Qkogtmbxvy5774 [place] [address]Dr. Chrissy Frazier Calcium [Mass/Vol] 9.6 mg/dL Normal 8.5-10.1 [facility] Comment on above: Performed By: #### L IPA, TERRENCE, CMP, MG ####[facility] Fwtatcqbsd3307 [place] [address]Dr. Chrissy Frazier Chloride [Moles/Vol] 103 mmol/L Normal 98-107 [facility] Comment on above: Performed By: #### L IPA, TERRENCE, CMP, MG ####[facility] Pgitphadmg8124 [place] [address]Dr. Chrissy Frazier CO2 [Moles/Vol] 16.7 mmol/L Critically low 21.0-32.0 [facility] Comment on above: Performed By: #### L IPA, TERRENCE, CMP, MG ####[facility] Fmufhv[address]ir[address] [place], [place] [address]Dr. Chrissy Frazier Creatinine [Mass/Vol] 1.42 mg/dL Critically high 0.70-1.30 [facility] Comment on above: Performed By: #### L IPA, TERRENCE, CMP, MG ####[facility] Gohgcfgwrr6609 [place] [address]Dr. Chrissy Frazier EGFR-AF ESTONIAN >60 Normal >=60 [facility] Comment on above: Performed By: #### L IPA, TERRENCE, CMP, MG ####[facility] Kmxcswlmet3043 [place] [address]Dr. Chrissy Frazier EGFR-NON AF ESTONIAN 58 mL/min/1.73m2 Critically low >=60 [facility] Comment on above: Performed By: #### L IPA, TERRENCE, CMP, MG ####[facility] Uulxjoyljz2858 [place] [address]Dr. Chrissy Frazier Globulin (S) [Mass/Vol] 4.0 g/dL Normal [facility] Comment on above: Performed By: #### L IPA, TERRENCE, CMP, MG ####[facility] Jdmnmdgafr8169 [place] [address]Dr. Chrissy Frazier Glucose [Mass/Vol] 149 mg/dL Critically high 74-106 [facility] Comment on above: Performed By: #### L IPA, TERRENCE, CMP, MG ####[facility] Flhrzacrqa7960 [place] [address]Dr. Chrissy Frazier Potassium [Moles/Vol] 3.7 mmol/L Normal 3.5-5.1 [facility] Comment on above: Performed By: #### L IPA, TERRENCE, CMP, MG ####[facility] Hxhfouibrl8905 [place] [address]Dr. Chrissy Frazier Protein [Mass/Vol] 8.3 g/dL Critically high 6.4-8.2 [facility] Comment on above: Performed By: #### L IPA, TERRENCE, CMP, MG ####[facility] Hcyhoznzwt3201 [place] [address]Dr. Chrissy Frazier Sodium [Moles/Vol] 140 mmol/L Normal 136-145 [facility] Comment on above: Performed By: #### L IPA, TERRENCE, CMP, MG ####[facility] Hfaisiuniy1164 [place] [address]Dr. Chrissy Frazier Urea nitrogen [Mass/Vol] 16.0 mg/dL Normal 7.0-18.0 [facility] Comment on above: Performed By: #### L IPA, TERRENCE, CMP, MG ####[facility] Oqodwrgyik5418 [place] [address]Dr. Chrissy Frazier Urea nitrogen/Creatinine [Mass ratio] 11.3 mg/mg Normal [facility] Comment on above: Performed By: #### L IPA, TERRENCE, CMP, MG ####[facility] Ajollgtsny6300 [place] [address]Dr. Chrissy Frazier SED RATE [facility] 2022 SED RATE 37 mm/hr Critically high <=15 [facility] Comment on above: Performed By: #### S EDR ####[facility] Ayblylffxm1649 [place], [place] [address]Ev. Chrissy Frazier XR ABD FLAT UP_PA Enoch 01-03 XR ABD FLAT UP_PA CH Normal [facility] CT HEART CORONARY ANGIOGRAMo n 12-13-2022 [...] CT examination Electronically signed: Maikel Chappell. Normal [facility] Office Visiton 11-24-2022 Follow-up visit [id number] Paulina Montero 1990 M Date Provider Department Center 11/24/2022 3848-RAQUEL BANKS [facility] Family History Problem Relation Age of Onset Coronary artery disease Father Heart attack Father 54 Family Status - Relation Status Age at Father Level of Service:[address] [place] OFFICE/OUTPATIENT NEW MODERATE MDM 45-59 MINUTES Reason for Visit and Comments: abnormal stress test [Other] Normal [facility] CARDIAC STRESS TESTon 2021 CARDIAC STRESS TEST Normal [facility] AMYLASEon 10-24-2022 Amylase [Catalytic activity/Vol] 26 U/L Normal 25-115 [facility] Comment on above: Performed By: #### C MP, LIPA, TERRENCE ####[facility] Bdawrqvmqd9035 [place] [id number] Frazier CBC AUTO DIFFon 10-24-2022 BASO # 0.0 103/ul Normal 0.0-0.1 [facility] Comment on above: Performed By: #### C BC ####[facility] Jccxnlsbsy2698 [place] [id number]. Chrissy Frazier Basophils/100 WBC (Bld) 0.2 % Normal 0.2-2.0 [facility] Comment on above: Performed By: #### C BC ####[facility] Wjupyukanh6804 [place] [address]Dr. Chrissy Frazier EO # 0.1 103/ul Normal 0.0-0.7 [facility] Comment on above: Performed By: #### C BC ####[facility] Dcifuybjup[address] [place], [place] [address]Dr. Chrissy Frazier Eosinophils/100 WBC (Bld) 0.4 % Critically low 0.9-7.0 [facility] Comment on above: Performed By: #### C BC ####[facility] Twjmzlgwig00[address] [place], [place] [address]Dr. Chrissy Frazier Erythrocyte distribution width (RBC) [Ratio] 14.6 % Normal 11.0-15.0 [facility] Comment on above: Performed By: #### C BC ####[facility] Wekpbzhvee55[address] [place], [place] [address]Dr. Chrissy Frazier Hematocrit (Bld) [Volume fraction] 39.4 % Critically low 42.0-54.0 [facility] Comment on above: Performed By: #### C BC ####[facility] Rysjbtnnks[address] [place], [place] [address]Dr. Chrissy Frazier Hemoglobin (Bld) [Mass/Vol] 13.2 g/dL Critically low 14.0-18.0 [facility] Comment on above: Performed By: #### C BC ####[facility] Mucaqsrski18[address] [place], [place] [address]Dr. Chrissy Frazier IG # 0.07 10e3/ul Critically high 0.00-0.03 [facility] Comment on above: Performed By: #### C BC ####[facility] Godatauoer[address] [place], [place] [address]Dr. Chrissy Frazier IG % 0.5 % Normal 0.0-0.5 [facility] Comment on above: Performed By: #### C BC ####[facility] Mupqthlgmk6774 [place] [phone]. Chrissy Freddie LYMPH # 3.7 103/ul Normal 1.2-3.8 [facility] Comment on above: Performed By: #### C BC ####[facility] Rvnzasarfl5910 [place] [id number]. Tishrowan Frazier Lymphocytes/100 WBC (Bld) 27.0 % Normal 20.5-60.0 [facility] Comment on above: Performed By: #### C BC ####[facility] Oskxnicndt3896 [place] [address]Dr. Tishrowan Frazier MANUAL DIFF REQ NO Normal [facility] Comment on above: Performed By: #### C BC ####[facility] Wgvjlolzvs0383 [place] [address]Dr. Chrissy Freddie MCH (RBC) [Entitic mass] 27.8 pg Normal 25.9-34.0 [facility] Comment on above: Performed By: #### C BC ####[facility] Jdayeavkqi2911 [place] [address]Dr. Chrissy Freddie MCHC (RBC) [Mass/Vol] 33.5 g/dL Normal 29.9-35.2 [facility] Comment on above: Performed By: #### C BC ####[facility] Hknnlifdks6324 [place] [address]Dr. Chrissy Frazier MCV (RBC) [Entitic vol] 82.9 fL Normal 80.0-94.0 [facility] Comment on above: Performed By: #### C BC ####[facility] Flmseinxuo5422 [place] [address]Dr. Chrissy Frazier MONO # 1.2 103/ul Critically high 0.3-0.8 [facility] Comment on above: Performed By: #### C BC ####[facility] Bpyqoqkzoe8445 [place] [address]Dr. Chrissy Frazier Monocytes/100 WBC (Bld) 8.4 % Normal 1.7-12.0 [facility] Comment on above: Performed By: #### C BC ####[facility] Cobqoieoch7768 [place] [phone]. Chrissy Frazier NEUT # 8.8 103/ul Critically high 1.4-6.5 [facility] Comment on above: Performed By: #### C BC ####[facility] Xihzrsmlbn5221 [place] [phone]. Chrissy Frazier Neutrophils/100 WBC (Bld) 63.5 % Normal 43.0-75.0 [facility] Comment on above: Performed By: #### C BC ####[facility] Phfnqiqaud3578 [place] [phone]. Chrissy Frazier Platelet mean volume (Bld) [Entitic vol] 10.7 fL Normal 9.5-13.5 [facility] Comment on above: Performed By: #### C BC ####[facility] Fyprvjxszm0359 [place] [phone]. Chrissy Frazier PLT 291 103/ul Normal 150-450 [facility] Comment on above: Performed By: #### C BC ####[facility] Cdhhcbsybh7236 [place] [phone]. Chrissy Frazier RBC 4.75 106/ul Normal 4.70-6.10 [facility] Comment on above: Performed By: #### C BC ####[facility] Vifsfciyaw1653 [place] [phone]. Chrissy Frazier WBC 13.8 103/ul Critically high 4.0-11.0 [facility] Comment on above: Performed By: #### C BC ####[facility] Nxjwdgotws1421 [place] [phone]. Chrissy Freddie LIPASEon 10-24-2022 Lipase [Catalytic activity/Vol] 44.0 U/L Critically low 73.0-393.0 [facility] Comment on above: Performed By: #### C MP, LIPBean, TERRENCE ####[facility] Dbtjppghne8342 [place] [address]Dr. Tishrowan Frazier PROF 14(COMP METB)on 022 Albumin [Mass/Vol] 3.4 g/dL Normal 3.4-5.0 [facility] Comment on above: Performed By: #### C MP, LIPA, TERRENCE ####[facility] Vrjliguodl1264 [place] [address]Dr. Chrissy Freddie Albumin/Globulin [Mass ratio] 0.9 {ratio} Normal [facility] Comment on above: Performed By: #### C MP, LIPA, TERRENCE ####[facility] Odticzkhww7349 [place] [address]Dr. Chrissy Freddie ALP [Catalytic activity/Vol] 67 U/L Normal 46-116 [facility] Comment on above: Performed By: #### C MP, LIPA, TERRENCE ####[facility] Zlhfusjyqf[address] [place], [place] [address]Dr. Chrissy Frazier ALT [Catalytic activity/Vol] 25 U/L Normal 16-63 [facility] Comment on above: Performed By: #### C MP, LIPA, TERRENCE ####[facility] Vvdlfwyztr[address] [place], [place] [address]Dr. Chrissy Frazier Anion gap [Moles/Vol] 14.5 mmol/L Normal [facility] Comment on above: Performed By: #### C MP, LIPA, TERRENCE ####[facility] Ghoegryjwu[address] [place], [place] [address]Dr. Tishrowan Frazier AST [Catalytic activity/Vol] 17 U/L Normal 15-37 [facility] Comment on above: Performed By: #### C MP, LIPA, TERRENCE ####[facility] Wgnazafflh63[address] [place], [place] [address]Dr. Chrissy Frazier Bilirubin [Mass/Vol] 0.5 mg/dL Normal 0.2-1.0 [facility] Comment on above: Performed By: #### C MP, LIPA, TERRENCE ####[facility] Pnhqxtqwiu6[address] [place], [place] [address]Dr. Chrissy Frazier Calcium [Mass/Vol] 8.6 mg/dL Normal 8.5-10.1 [facility] Comment on above: Performed By: #### C MP, LIPA, TERRENCE ####[facility] Mmmdnwwknn87[address] [place], [place] [address]Dr. Chrissy Frazier Chloride [Moles/Vol] 106 mmol/L Normal 98-107 [facility] Comment on above: Performed By: #### C OSWALD ADAIR AMY ####[facility] Xqtxbibzoy3865 [place] [address]Dr. Chrissy Frazier CO2 [Moles/Vol] 22.8 mmol/L Normal 21.0-32.0 [facility] Comment on above: Performed By: #### C OSWALD ADAIR, TERRENCE ####[facility] Oshnkzhstb[address] [place], [place] [address]Dr. Chrissy Frazier Creatinine [Mass/Vol] 0.98 mg/dL Normal 0.70-1.30 [facility] Comment on above: Performed By: #### C OSWALD ADAIR AMY ####[facility] Gkafykwasn[address] [place], [place] [address]Dr. Chrissy Frazier EGFR-AF ESTONIAN >60 Normal >=60 [facility] Comment on above: Performed By: #### C OSWALD ADAIR AMY ####[facility] Dceglziupe[address] [place], [place] [address]Dr. Chrissy Frazier EGFR-NON AF ESTONIAN >60 Normal >=60 [facility] Comment on above: Performed By: #### C OSWALD ADAIR AMY ####[facility] Borcszlgmx328[address] [place], [place] [address]Dr. Chrissy Frazier Globulin (S) [Mass/Vol] 3.7 g/dL Normal [facility] Comment on above: Performed By: #### C OSWALD ADAIR AMY ####[facility] Wgmfmyzesu4327 [place] [address]Dr. Chrissy Frazier Glucose [Mass/Vol] 115 mg/dL Critically high 74-106 [facility] Comment on above: Performed By: #### C OSWALD ADAIR AMY ####[facility] Mfxsgtxyed5[address] [place], [place] [address]Dr. Chrissy Frazier Potassium [Moles/Vol] 3.3 mmol/L Critically low 3.5-5.1 [facility] Comment on above: Performed By: #### C MP, LIPA, TERRENCE ####[facility] Vyklnnwqve8554 [place] [address]Dr. Chrissy Frazier Protein [Mass/Vol] 7.1 g/dL Normal 6.4-8.2 [facility] Comment on above: Performed By: #### C MP, LIPA, TERRENCE ####[facility] Pxkiaurqjr8871 [place] [address]Dr. Chrissy Frazier Sodium [Moles/Vol] 140 mmol/L Normal 136-145 [facility] Comment on above: Performed By: #### C MP, LIPA, TERRENCE ####[facility] Ouvqelqjie8[address] [place], [place] [address]Dr. Chrissy Frazier Urea nitrogen [Mass/Vol] 10.0 mg/dL Normal 7.0-18.0 [facility] Comment on above: Performed By: #### C MP, LIPA, TERRENCE ####[facility] Mthedajivf70[address] [place], [place] [address]Dr. Tishrowan Freddie Urea nitrogen/Creatinine [Mass ratio] 10.2 mg/mg Normal [facility] Comment on above: Performed By: #### C MP, LIPA, TERRENCE ####[facility] Lvpfzgccrf7824[address] [place], [place] [address]Dr. Chrissy Freddie AMYLASEon 10-23-2022 Amylase [Catalytic activity/Vol] 31 U/L Normal 25-115 [facility] Comment on above: Performed By: #### C MP, LIPA, TERRENCE ####[facility] Digqjwzgyz7[address] [place], [place] [address]Dr. Chrissy Frazier CBC AUTO DIFFon 10-23-2022 BASO # 0.1 103/ul Normal 0.0-0.1 [facility] Comment on above: Performed By: #### C BC ####[facility] Gowwgabpin66[address] [place], [place] [address]Dr. Chrissy Freddie Basophils/100 WBC (Bld) 0.3 % Normal 0.2-2.0 [facility] Comment on above: Performed By: #### C BC ####[facility] Xnrutagjaq7408[address] [place], [place] [address]Dr. Chrissy Frazier EO # 0.1 103/ul Normal 0.0-0.7 [facility] Comment on above: Performed By: #### C BC ####[facility] Xesnocljnb2135 [place] [address]Dr. Tishrowan Frazier Eosinophils/100 WBC (Bld) 0.3 % Critically low 0.9-7.0 [facility] Comment on above: Performed By: #### C BC ####[facility] Aloehcpxyo[address] [place], [place] [address]Dr. Tishrowan Frazier Erythrocyte distribution width (RBC) [Ratio] 14.5 % Normal 11.0-15.0 [facility] Comment on above: Performed By: #### C BC ####[facility] Zxuxojcvxn2450[address] [place], [place] [address]Dr. Chrissy Frazier Hematocrit (Bld) [Volume fraction] 44.0 % Normal 42.0-54.0 [facility] Comment on above: Performed By: #### C BC ####[facility] Nelykkinew60[address] [place], [place] [address]Dr. Tishrowan Frazier Hemoglobin (Bld) [Mass/Vol] 14.8 g/dL Normal 14.0-18.0 [facility] Comment on above: Performed By: #### C BC ####[facility] Jjeixhoexz3137[address] [place], [place] [address]Dr. Chrissy Frazier IG # 0.09 10e3/ul Critically high 0.00-0.03 [facility] Comment on above: Performed By: #### C BC ####[facility] Woprncwwqc99[address] [place], [place] [address]Dr. Chrissy Frazier IG % 0.5 % Normal 0.0-0.5 [facility] Comment on above: Performed By: #### C BC ####[facility] Fdhxsqhqgg62[address] [place], [place] [address]DrNancy Frazier LYMPH # 3.6 103/ul Normal 1.2-3.8 [facility] Comment on above: Performed By: #### C BC ####[facility] Xkanusynxs5[address] [place], [place] [address]Dr. Chrissy Frazier Lymphocytes/100 WBC (Bld) 19.4 % Critically low 20.5-60.0 [facility] Comment on above: Performed By: #### C BC ####[facility] Zadgsijcpg3926 [place] [address]DrNancy Frazier MANUAL DIFF REQ NO Normal [facility] Comment on above: Performed By: #### C BC ####[facility] Njksbyhiva5232 [place] [address]Dr. Chrissy Frazier MCH (RBC) [Entitic mass] 28.1 pg Normal 25.9-34.0 [facility] Comment on above: Performed By: #### C BC ####[facility] Dlsebbjenh65[address] [place], [place] [address]Dr. Chrissy Frazier MCHC (RBC) [Mass/Vol] 33.6 g/dL Normal 29.9-35.2 [facility] Comment on above: Performed By: #### C BC ####[facility] Vufvakssfe8[address] [place], [place] [address]Dr. Chrissy Frazier MCV (RBC) [Entitic vol] 83.5 fL Normal 80.0-94.0 [facility] Comment on above: Performed By: #### C BC ####[facility] Nlernslfth[address] [place], [place] [address]Dr. Chrissy Frazier MONO # 0.9 103/ul Critically high 0.3-0.8 [facility] Comment on above: Performed By: #### C BC ####[facility] Ynfsthejjo8018[address] [place], [place] [address]DrNancy Frazier Monocytes/100 WBC (Bld) 4.9 % Normal 1.7-12.0 [facility] Comment on above: Performed By: #### C BC ####[facility] Buvdjchbfq[address] [place], [place] [address]DrNancy Frazier NEUT # 13.9 103/ul Critically high 1.4-6.5 [facility] Comment on above: Performed By: #### C BC ####[facility] Deyuhbdkzx20[address] [place], [place] [address]Dr. Chrissy Frazier Neutrophils/100 WBC (Bld) 74.6 % Normal 43.0-75.0 [facility] Comment on above: Performed By: #### C BC ####[facility] Lgsrabxsbk7091 [place] [address]Dr. Chrissy Frazier Platelet mean volume (Bld) [Entitic vol] 10.5 fL Normal 9.5-13.5 [facility] Comment on above: Performed By: #### C BC ####[facility] Nhgwfiobqy6484 [place] [address]Dr. Chrissy Frazier PLT 402 103/ul Normal 150-450 [facility] Comment on above: Performed By: #### C BC ####[facility] Yavldoakeb[address] [place], [place] [address]Dr. Chrissy Frazier RBC 5.27 106/ul Normal 4.70-6.10 [facility] Comment on above: Performed By: #### C BC ####[facility] Hxpedeoyks9[address] [place], [place] [address]Dr. Chrissy Frazier WBC 18.6 103/ul Critically high 4.0-11.0 [facility] Comment on above: Performed By: #### C BC ####[facility] Kscnforvip427[address] [place], [place] [address]Dr. Chrissy Frazier CULTURE BLOODon 10-23-2022 Microscopic examination of blood, culture Culture Observations: NO GROWTH AT 5 DAYS. Normal [facility] Comment on above: Performed By: #### B LDCX2 ####[facility] Lotwhmdxsk[address] [place], [place] [address]Dr. Chrissy Frazier Microscopic examination of blood, culture Culture Observations: NO GROWTH AT 5 DAYS. Normal [facility] Comment on above: Performed By: #### B LDCX1 ####[facility] Ciuvemufen[address] [place], [place] [address]Dr. Chrissy Frazier CULTURE URINEon 10-23-2022 CULTURE URINE Culture Observations: NO GROWTH. Normal [facility] Comment on above: Performed By: #### U RCX ####[facility] Fwjnyzzhqi24[address] [place], [place] [address]Dr. Chrissy Frazier Covid-19 PCR (CVDTB)on SARS-CoV-2 (COVID-19) RNA RHIANNON+probe Ql (Unsp spec) Not detected Normal NOT DETECTED [facility] Comment on above: Result Comment: When [...] for this test is supported by the [employer] of Health and Human Service's declaration that [...] be used). Performed By: #### C VDTBH ####[facility] Vgtwpqfgbm23[address] Chrissy Frazier INFLUENZA A AND B AGon 10-23 INFLUANEGH SEE BELOW Normal [facility] Comment on above: Result Comment: Nega tive for Flu A protein angiten. Infection due to Flu A cannot be ruled out. Flu A angiten in the sample may be below the detection limit of the test. Performed By: #### I NFLUAB ####[facility] Picvcbdmho0245 [place] [address]Dr. Chrissy Frazier INFLUBNEGH SEE BELOW Normal [facility] Comment on above: Result Comment: Nega tive for Flu B protein antigen. Infection due to Flu B cannot be ruled out. Flu B antigen in the sample may be below the detection limit of the test. Performed By: #### I NFLUAB ####[facility] [address]me[address] [place], [place] [address]rowan [facility] INFLUENZA A AG Negative Normal NEGATIVE SEE COMMENT [facility] Comment on above: Performed By: #### I NFLUAB ####[facility] Rztpsxuhwl2722 [place] [address]Dr. Chrissy Frazier INFLUENZA B AG Negative Normal NEGATIVE SEE COMMENT [facility] Comment on above: Performed By: #### I NFLUAB ####[facility] Jbzmgtvrwt7896 [place] [address]Dr. Chrissy Frazier INTERNAL CONTROLS Within Normal Limits Normal Wi thin Normal Limits [facility] Comment on above: Performed By: #### I NFLUAB ####[facility] Yuhfaclfaf5820 [place] [address]Dr. Chrissy Frazier LACTATE/LACTIC ACIDon 2021 Lactate [Moles/Vol] 2.1 mmol/L Critically high 0.4-1.9 [facility] Comment on above: Performed By: #### L ACT ####[facility] Gewymvtwye[address] [place], [place] [address]Dr. Chrissy Frazier Lactate [Moles/Vol] 6.9 mmol/L Critically high 0.4-1.9 [facility] Comment on above: Performed By: #### L ACT ####[facility] Mbfivbicsn[address] [place], [place] [address]Dr. Chrissy Frazier LIPASEon 10-23-2022 Lipase [Catalytic activity/Vol] 72.0 U/L Critically low 73.0-393.0 [facility] Comment on above: Performed By: #### C OSWALD ADAIR AMY ####[facility] Xujzvvxyxd[address] [place], [place] [address]Dr. Chrissy Frazier PROF 14(COMP METB)on 022 Albumin [Mass/Vol] 3.9 g/dL Normal 3.4-5.0 [facility] Comment on above: Performed By: #### C OSWALD ADAIR TERRENCE ####[facility] Kjodeqaptf[address] [place], [place] [address]Dr. Chrissy Frazier Albumin/Globulin [Mass ratio] 0.9 {ratio} Normal [facility] Comment on above: Performed By: #### C OSWALD ADAIR TERRENCE ####[facility] Pjrluwixbd8738 [place] [address]Dr. Chrissy Frazier ALP [Catalytic activity/Vol] 82 U/L Normal 46-116 [facility] Comment on above: Performed By: #### C MANA LIPA, TERRENCE ####[facility] Obsjtstywk6827 [place] [address]Dr. Chrissy Frazier ALT [Catalytic activity/Vol] 25 U/L Normal 16-63 [facility] Comment on above: Performed By: #### C MANA LIPA, TERRENCE ####[facility] Jxpfzllhua5119 [place] [address]Dr. Chrissy Frazier Anion gap [Moles/Vol] 18.1 mmol/L Normal [facility] Comment on above: Performed By: #### C MANA LIPA, TERRENCE ####[facility] Xtfcbusjqd[address] [place], [place] [address]Dr. Chrissy Frazier AST [Catalytic activity/Vol] 17 U/L Normal 15-37 [facility] Comment on above: Performed By: #### C MANA LIPA, TERRENCE ####[facility] Oiqubnwltw[address] [place], [place] [address]Dr. Chrissy Frazier Bilirubin [Mass/Vol] 0.5 mg/dL Normal 0.2-1.0 [facility] Comment on above: Performed By: #### C MANA LIPA, TERRENCE ####[facility] Ssqrqwrctk7601 [place] [address]Dr. Chrissy Frazier Calcium [Mass/Vol] 9.1 mg/dL Normal 8.5-10.1 [facility] Comment on above: Performed By: #### C MANA LIPA, TERRENCE ####[facility] Okgvmzryij6446 [place] [address]Dr. Chrissy Frazier Chloride [Moles/Vol] 101 mmol/L Normal 98-107 [facility] Comment on above: Performed By: #### C MP, LIPA, TERRENCE ####[facility] Zvtfjqpyle1910 [place] [address]Dr. Chrissy Frazier CO2 [Moles/Vol] 19.2 mmol/L Critically low 21.0-32.0 [facility] Comment on above: Performed By: #### C MANA LIPA, TERRENCE ####[facility] Caovhyiddt4707 [place] [address]Dr. Chrissy Frazier Creatinine [Mass/Vol] 1.72 mg/dL Critically high 0.70-1.30 [facility] Comment on above: Performed By: #### C MANA LIPA, TERRENCE ####[facility] Ozsrwtbudd5996 [place] [address]Dr. Chrissy Frazier EGFR-AF ESTONIAN 56 mL/min/1.73m2 Critically low >=60 [facility] Comment on above: Performed By: #### C MANA LIPA, TERRENCE ####[facility] [address]csvgvdpd[address] [place], [place] [address]Dr. Chrissy Frazier EGFR-NON AF ESTONIAN 46 mL/min/1.73m2 Critically low >=60 [facility] Comment on above: Performed By: #### C MANA LIPA, TERRENCE ####[facility] [facility] Lshqlvmq[address] [place], [place] [address]Dr. Chrissy Frazier Globulin (S) [Mass/Vol] 4.2 g/dL Normal [facility] Comment on above: Performed By: #### C TESSA ADAIRA, TERRENCE ####[facility] Pjsxopibru[address] [place], [place] [address]Dr. Chrissy Frazier Glucose [Mass/Vol] 126 mg/dL Critically high 74-106 T [facility] Comment on above: Performed By: #### C MANA LIPA, TERRENCE ####[facility] Ibrmktzgkw98[address] [place], [place] [address]Dr. Chrissy Frazier Potassium [Moles/Vol] 3.3 mmol/L Critically low 3.5-5.1 [facility] Comment on above: Performed By: #### C MP LIPA, TERRENCE ####[facility] Keoqwmbwgy[address] [place], [place] [address]Dr. Chrissy Frazier Protein [Mass/Vol] 8.1 g/dL Normal 6.4-8.2 The [facility] Comment on above: Performed By: #### C MANA LIPA, TERRENCE ####[facility] [address]par[address]vfug[address] [place] [address]Dr. Chrissy Frazier Sodium [Moles/Vol] 135 mmol/L Critically low 136-145 [facility] Comment on above: Performed By: #### C OSWALD ADAIR, TERRENCE ####[facility] Xkzyspnipp[address] [place] [address]Dr. Chrissy Frazier Urea nitrogen [Mass/Vol] 13.0 mg/dL Normal 7.0-18.0 [facility] Comment on above: Performed By: #### C OSWALD ADAIR, TERRENCE ####[facility] Hecaagbgsm2[address] [place], [place] [address]Dr. Chrissy Frazier Urea nitrogen/Creatinine [Mass ratio] 7.6 mg/mg Normal [facility] Comment on above: Performed By: #### C OSWALD ADAIR AMY ####[facility] Plshsootlx[address] [place], [place] [address]Dr. Chrissy Frazier UA RANDOM W/MICROSCOPICon BACTERIA NONE SEEN Normal NONE SEEN [facility] Comment on above: Performed By: #### U AMIC ####[facility] Lrqegrdnyq[address] [place], [place] [address]Dr. Chrissy Frazier Bilirubin Ql (U) Negative Normal NEGATIVE The [facility] Comment on above: Performed By: #### U AMIC ####[facility] Jqbxfxcend450[address] [place], [place] [address]Dr. Chrissy Frazier CAST NONE SEEN Normal NONE SEEN [facility] Comment on above: Performed By: #### U AMIC ####[facility] Epujmcihvf[address] [place], [place] [address]Dr. Chrissy Frazier Clarity (U) CLEAR Normal CLEAR [facility] Comment on above: Performed By: #### U AMIC ####[facility] Fgwagxmtxa[address] [place], [place] [address]Dr. Chrissy Frazier Color (U) LT. YELLOW Normal YELLOW [facility] Comment on above: Performed By: #### U AMIC ####[facility] Juvltwtkic[address] [place], [place] [address]Dr. Chrissy Frazier Crystals LM Nom (Urine sed) NONE SEEN Normal NONE SEEN [facility] Comment on above: Performed By: #### U AMIC ####[facility] Czdmkwwvqm24[address] [place] [address]Dr. Chrissy Frazier Epithelial cells LM Ql (Urine sed) FEW Abnormal NONE SEEN /RARE [facility] Comment on above: Performed By: #### U AMIC ####[facility] Npwajqiaeb8440 [place] [address]Dr. Chrissy Frazier Glucose Ql (U) Negative Normal NEGATIVE The [facility] Comment on above: Performed By: #### U AMIC ####[facility] Zsunkbtaop9[address] [place], [place] [address]Dr. Chrissy Frazier Hemoglobin Ql (U) Negative Normal NEGATIVE The [facility] Comment on above: Performed By: #### U AMIC ####[facility] Adqpghzusp07[address] [place], [place] [address]Dr. Chrissy Frazier Ketones Ql (U) 15 mg/dl Abnormal NEGATIVE The [facility] Comment on above: Performed By: #### U AMIC ####[facility] Qdporatzin[address] [place], [place] [address]Dr. Chrissy Frazier LEUKOCYTES Negative Normal NEGATIVE [facility] Comment on above: Performed By: #### U AMIC ####[facility] Uaaayrqhif7[address] [place], [place] [address]Dr. Chrissy Frazier MUCOUS NONE SEEN Normal NONE SEEN [facility] Comment on above: Performed By: #### U AMIC ####[facility] Zfbyanbhjg4[address] [place], [place] [address]Dr. Chrissy Frazier Nitrite Ql (U) Negative Normal NEGATIVE The [facility] Comment on above: Performed By: #### U AMIC ####[facility] Zimamvsbsi8160[address] [place], [place] [address]Dr. Chrissy Frazier pH (U) 6.0 [pH] Normal 5-9 [facility] Comment on above: Performed By: #### U AMIC ####[facility] Vcyapbgxbp[address] [place], [place] [address]Dr. Chrissy Frazier RBC 0-2 Normal 0-2 [facility] Comment on above: Performed By: #### U AMIC ####[facility] Mqiaarrnai[address] [place] [address]Dr. Chrissy Frazier SPEC GRAVITY 1.010 Normal 1.005-<=1.025 The [facility] Comment on above: Performed By: #### U AMIC ####[facility] Rnzhshximb9954 [place] [address]Dr. Chrissy Frazier UA PROTEIN Negative Normal NEGATIVE/ TRACE The [facility] Comment on above: Performed By: #### U AMIC ####[facility] Biwhudpazy7843 [place] [address]Dr. Chrissy Frazier Urobilinogen Qn (U) 0.2 {Estrellita'U}/dL Normal 0.2 - 1. 0 [facility] Comment on above: Performed By: #### U AMIC ####[facility] Sagamudeqn[address] [place], [place] [address]Dr. Chrissy Frazier WBC NONE SEEN Normal NONE SEEN [facility] Comment on above: Performed By: #### U AMIC ####[facility] Pfcbqeazju2940 [place] [address]Dr. Chrissy Freddie AMYLASEon 10-22-2022 Amylase [Catalytic activity/Vol] 28 U/L Normal 25-115 [facility] Comment on above: Performed By: #### L IPA, CMP, TERRENCE ####[facility] Lmjeejqicm7[address] [place], [place] [address]Dr. Chrissy Frazier CBC AUTO DIFFon 10-22-2022 BASO # 0.0 103/ul Normal 0.0-0.1 [facility] Comment on above: Performed By: #### C BC ####[facility] Yrsuqlqneq3[address] [place], [place] [address]Dr. Chrissy Frazier Basophils/100 WBC (Bld) 0.2 % Normal 0.2-2.0 [facility] Comment on above: Performed By: #### C BC ####[facility] Ijsflqbsef276[address] [place], [place] [address]Dr. Chrissy Frazier EO # 0.0 103/ul Normal 0.0-0.7 [facility] Comment on above: Performed By: #### C BC ####[facility] Xywhiechkm9909 [place] [address]Dr. Chrissy Frazier Eosinophils/100 WBC (Bld) 0.1 % Critically low 0.9-7.0 [facility] Comment on above: Performed By: #### C BC ####[facility] Igzjhjlrac914[address] [place], [place] [address]Dr. Chrissy Frazier Erythrocyte distribution width (RBC) [Ratio] 14.4 % Normal 11.0-15.0 [facility] Comment on above: Performed By: #### C BC ####[facility] Nkevebxvvr6338[address] [place], [place] [address]Dr. Chrissy Frazier Hematocrit (Bld) [Volume fraction] 45.2 % Normal 42.0-54.0 [facility] Comment on above: Performed By: #### C BC ####[facility] Slzxyqkyls12[address] [place], [place] [address]Dr. Chrissy Frazier Hemoglobin (Bld) [Mass/Vol] 15.4 g/dL Normal 14.0-18.0 [facility] Comment on above: Performed By: #### C BC ####[facility] Duprxxawrb965[address] [place], [place] [address]Dr. Chrissy Frazier IG # 0.07 10e3/ul Critically high 0.00-0.03 [facility] Comment on above: Performed By: #### C BC ####[facility] Nzotqhbudj4764[address] [place], [place] [address]Dr. Chrissy Freddie IG % 0.4 % Normal 0.0-0.5 [facility] Comment on above: Performed By: #### C BC ####[facility] Tpenygdjgf9767[address] [place], [place] [address]Dr. Chrissy Frazier LYMPH # 2.0 103/ul Normal 1.2-3.8 [facility] Comment on above: Performed By: #### C BC ####[facility] Evqqjhvlpg6613[address] [place], [place] [address]Dr. Chrissy Frazier Lymphocytes/100 WBC (Bld) 12.2 % Critically low 20.5-60.0 [facility] Comment on above: Performed By: #### C BC ####[facility] Zpqnbgucfx2784 [place] [address]DrNancy Frazier MANUAL DIFF REQ NO Normal [facility] Comment on above: Performed By: #### C BC ####[facility] Vhfmvsdgfw4075 [place] [address]Dr. Chrissy Frazier MCH (RBC) [Entitic mass] 28.3 pg Normal 25.9-34.0 [facility] Comment on above: Performed By: #### C BC ####[facility] Qmjboqhkfp7718[address] [place], [place] [address]Dr. Chrissy Frazier MCHC (RBC) [Mass/Vol] 34.1 g/dL Normal 29.9-35.2 [facility] Comment on above: Performed By: #### C BC ####[facility] Jjvfuoqgfq8916[address] [place], [place] [address]DrNancy Frazier MCV (RBC) [Entitic vol] 82.9 fL Normal 80.0-94.0 [facility] Comment on above: Performed By: #### C BC ####[facility] Zhvywqnpyf44[address] [place], [place] [address]DrNancy Frazier MONO # 0.3 103/ul Normal 0.3-0.8 [facility] Comment on above: Performed By: #### C BC ####[facility] Gyekdevjms[address] [place], [place] [address]DrNancy Frazier Monocytes/100 WBC (Bld) 2.0 % Normal 1.7-12.0 [facility] Comment on above: Performed By: #### C BC ####[facility] Msreomabmh[address] [place], [place] [address]DrNancy Frazier NEUT # 14.0 103/ul Critically high 1.4-6.5 [facility] Comment on above: Performed By: #### C BC ####[facility] Bcyyowdwiv4230[address] [place], [place] [address]DrNancy Frazier Neutrophils/100 WBC (Bld) 85.1 % Critically high 43.0-75.0 [facility] Comment on above: Performed By: #### C BC ####[facility] Uphondcouk22[address] [place] [address]Dr. Chrissy Frazier Platelet mean volume (Bld) [Entitic vol] 10.6 fL Normal 9.5-13.5 [facility] Comment on above: Performed By: #### C BC ####[facility] Zwdyvmkjrz3365 [place] [address]Dr. Chrissy Frazier PLT 411 103/ul Normal 150-450 [facility] Comment on above: Performed By: #### C BC ####[facility] Srkcyuejzi614[address] [place], [place] [address]Dr. Chrissy Frazier RBC 5.45 106/ul Normal 4.70-6.10 [facility] Comment on above: Performed By: #### C BC ####[facility] Jkqxjgbuqg[address] [place], [place] [address]Dr. Chrissy Frazier WBC 16.5 103/ul Critically high 4.0-11.0 [facility] Comment on above: Performed By: #### C BC ####[facility] Oabtdamdie[address] [place], [place] [address]Dr. Chrissy Frazier LIPASEon 10-22-2022 Lipase [Catalytic activity/Vol] 57.0 U/L Critically low 73.0-393.0 [facility] Comment on above: Performed By: #### L IPA CMP, TERRENCE ####[facility] Blxwlolakl[address] [place], [place] [address]Dr. Chrissy Frazier PROF 14(COMP METB)on 022 Albumin [Mass/Vol] 4.2 g/dL Normal 3.4-5.0 [facility] Comment on above: Performed By: #### L IPA CMP, TERRENCE ####[facility] Gczkqrctvq1863 [place] [address]Dr. Chrissy Frazier Albumin/Globulin [Mass ratio] 1.0 {ratio} Normal [facility] Comment on above: Performed By: #### L IPA, CMP, TERRENCE ####[facility] Rdfsfirmes0401 [place] [address]Dr. Chrissy Frazier ALP [Catalytic activity/Vol] 92 U/L Normal 46-116 [facility] Comment on above: Performed By: #### L IPA, CMP, TERRENCE ####[facility] Tjyiezbuqy4251 [place] [address]Dr. Chrissy Frazier ALT [Catalytic activity/Vol] 26 U/L Normal 16-63 [facility] Comment on above: Performed By: #### L IPA, CMP, TERRENCE ####[facility] Uwppzmfznf4360[address] [place], [place] [address]Dr. Chrissy Frazier Anion gap [Moles/Vol] 19.5 mmol/L Normal [facility] Comment on above: Performed By: #### L IPA, CMP, TERRENCE ####[facility] Jguhdwizkr40[address] [place], [place] [address]Dr. Chrissy Frazier AST [Catalytic activity/Vol] 19 U/L Normal 15-37 [facility] Comment on above: Performed By: #### L IPA, CMP, TERRENCE ####[facility] Xgqkugxors[address] [place], [place] [address]Dr. Chrissy Frazier Bilirubin [Mass/Vol] 0.7 mg/dL Normal 0.2-1.0 [facility] Comment on above: Performed By: #### L IPA, CMP, TERRENCE ####[facility] Rcuzrahehi54[address] [place], [place] [address]Dr. Chrissy Frazier Calcium [Mass/Vol] 9.6 mg/dL Normal 8.5-10.1 [facility] Comment on above: Performed By: #### L IPA, CMP, TERRENCE ####[facility] Melbacjlvs3259 [place] [address]Dr. Chrissy Rfazier Chloride [Moles/Vol] 102 mmol/L Normal 98-107 [facility] Comment on above: Performed By: #### L IPA, CMP, TERRENCE ####[facility] Zfmgoatngl25[address] [place], [place] [address]Dr. Chrissy Frazier CO2 [Moles/Vol] 19.1 mmol/L Critically low 21.0-32.0 [facility] Comment on above: Performed By: #### L IPA, CMP, TERRENCE ####[facility] Wrgfmjkhou6659 [place] [address]Dr. Chrissy Freddie Creatinine [Mass/Vol] 1.47 mg/dL Critically high 0.70-1.30 [facility] Comment on above: Performed By: #### L IPA, CMP, TERRENCE ####[facility] Ikkuzdrclp4848 [place] [address]Dr. Chrissy Frazier EGFR-AF ESTONIAN >60 Normal >=60 [facility] Comment on above: Performed By: #### L IPA, CMP, TERRENCE ####[facility] Warryqzqij[address] [place], [place] [address]Dr. Chrissy Frazier EGFR-NON AF ESTONIAN 56 mL/min/1.73m2 Critically low >=60 [facility] Comment on above: Performed By: #### L IPA, CMP, TERRENCE ####[facility] Bjvbegyadi[address] [place], [place] [address]Dr. Chrissy Frazier Globulin (S) [Mass/Vol] 4.3 g/dL Normal [facility] Comment on above: Performed By: #### L IPA, CMP, TERRENCE ####[facility] Wgtiutosmz2414[address] [place], [place] [address]Dr. Chrissy Frazier Glucose [Mass/Vol] 189 mg/dL Critically high 74-106 [facility] Comment on above: Performed By: #### L IPA, CMP, TERRENCE ####[facility] Rfmopbhftg2099[address] [place], [place] [address]Dr. Chrissy Frazier Potassium [Moles/Vol] 4.6 mmol/L Normal 3.5-5.1 [facility] Comment on above: Performed By: #### L IPA, CMP, TERRENCE ####[facility] Tkukzfyaso[address] [place], [place] [address]Dr. Chrissy Frazier Protein [Mass/Vol] 8.5 g/dL Critically high 6.4-8.2 [facility] Comment on above: Performed By: #### L IPA, CMP, TERRENCE ####[facility] Jcfgmyfnpy7655[address] [place], [place] [address]Dr. Chrissy Frazier Sodium [Moles/Vol] 136 mmol/L Normal 136-145 [facility] Comment on above: Performed By: #### L IPA CMP, TERRENCE ####[facility] Dazydqzsfg0997 [place] [address]Dr. Chrissy Frzaier Urea nitrogen [Mass/Vol] 16.0 mg/dL Normal 7.0-18.0 [facility] Comment on above: Performed By: #### L IPA CMP, TERRENCE ####[facility] Pnixgtkvlk9347[address] [place], [place] [address]Dr. Chrissy Frazier Urea nitrogen/Creatinine [Mass ratio] 10.9 mg/mg Normal [facility] Comment on above: Performed By: #### L IPA CMP, TERRENCE ####[facility] Rnqsnomwle06[address] [place], [place] [address]Dr. Chrissy Frazier AMYLASEon 09-03-2022 Amylase [Catalytic activity/Vol] 25 U/L Normal 25-115 [facility] Comment on above: Performed By: #### L IPA TERRENCE, CMP ####[facility] Xbwgukfzde14[address] [place], [place] [address]Dr. Chrissy Frazier CBC AUTO DIFFon 09-03-2022 BASO # 0.0 103/ul Normal 0.0-0.1 [facility] Comment on above: Performed By: #### C BC ####[facility] Gmwpanbwfq646[address] [place], [place] [address]Dr. Chrissy Frazier Basophils/100 WBC (Bld) 0.1 % Critically low 0.2-2.0 [facility] Comment on above: Performed By: #### C BC ####[facility] Qieldrjwnt[address] [place], [place] [address]Dr. Chrissy Frazier EO # 0.0 103/ul Normal 0.0-0.7 [facility] Comment on above: Performed By: #### C BC ####[facility] Ojrfcwphny7350[address] [place], [place] [address]Dr. Chrissy Frazier Eosinophils/100 WBC (Bld) 0.1 % Critically low 0.9-7.0 [facility] Comment on above: Performed By: #### C BC ####[facility] Oqyvcfbtva6003 [place] [address]Dr. Chrissy Frazier Erythrocyte distribution width (RBC) [Ratio] 14.0 % Normal 11.0-15.0 [facility] Comment on above: Performed By: #### C BC ####[facility] Cilvmavpmh6[address] [place], [place] [address]Dr. Chrissy Frazier Hematocrit (Bld) [Volume fraction] 42.5 % Normal 42.0-54.0 [facility] Comment on above: Performed By: #### C BC ####[facility] Nrkegbgkqr4640[address] [place], [place] [address]Dr. Chrissy Frazier Hemoglobin (Bld) [Mass/Vol] 14.1 g/dL Normal 14.0-18.0 [facility] Comment on above: Performed By: #### C BC ####[facility] Rhgtceikyk[address] [place], [place] [address]Dr. Chrissy Frazier IG # 0.06 10e3/ul Critically high 0.00-0.03 [facility] Comment on above: Performed By: #### C BC ####[facility] Lqjlvqrctl307[address] [place], [place] [address]Dr. Chrissy Frazier IG % 0.4 % Normal 0.0-0.5 [facility] Comment on above: Performed By: #### C BC ####[facility] Okhraclheh[address] [place], [place] [address]Dr. Chrissy Frazier LYMPH # 2.5 103/ul Normal 1.2-3.8 [facility] Comment on above: Performed By: #### C BC ####[facility] Trgisfhfoe[address] [place], [place] [address]Dr. Chrissy Frazier Lymphocytes/100 WBC (Bld) 16.3 % Critically low 20.5-60.0 [facility] Comment on above: Performed By: #### C BC ####[facility] Tvwxkvxtyk7150[address] [place], [place] [address]Dr. Chrissy Frazier MANUAL DIFF REQ NO Normal [facility] Comment on above: Performed By: #### C BC ####[facility] Yomavipulp3666 [place] [id number]. Chrissy Frazier MCH (RBC) [Entitic mass] 28.1 pg Normal 25.9-34.0 [facility] Comment on above: Performed By: #### C BC ####[facility] Cztzdbrmov0829 [place] [id number]. Chrissy Frazier MCHC (RBC) [Mass/Vol] 33.2 g/dL Normal 29.9-35.2 [facility] Comment on above: Performed By: #### C BC ####[facility] Iechzavtkj2686 [place] [phone]. Chrissy Freddie MCV (RBC) [Entitic vol] 84.8 fL Normal 80.0-94.0 [facility] Comment on above: Performed By: #### C BC ####[facility] Ngtsgysnog22[address] [place], [place] [address]Dr. Chrissy Frazier MONO # 1.1 103/ul Critically high 0.3-0.8 [facility] Comment on above: Performed By: #### C BC ####[facility] Shwnbumgjb2[address] [place], [place] [address]Dr. Chrissy Frazier Monocytes/100 WBC (Bld) 7.4 % Normal 1.7-12.0 [facility] Comment on above: Performed By: #### C BC ####[facility] Nvnvqarpdg26[address] [place], [place] [address]Dr. Tishrowan Frazier NEUT # 11.5 103/ul Critically high 1.4-6.5 [facility] Comment on above: Performed By: #### C BC ####[facility] Badijubxln9072 [place] [id number]. Chrissy Frazier Neutrophils/100 WBC (Bld) 75.7 % Critically high 43.0-75.0 [facility] Comment on above: Performed By: #### C BC ####[facility] Kxaoyrkemw6[address] [place], [place] [address]Dr. Chrissy Frazier Platelet mean volume (Bld) [Entitic vol] 10.6 fL Normal 9.5-13.5 [facility] Comment on above: Performed By: #### C BC ####[facility] Ohnemgtwjh8904 [place] [address]Dr. Chrissy Frazier PLT 310 103/ul Normal 150-450 [facility] Comment on above: Performed By: #### C BC ####[facility] Lxhfeibfqn8253 [place] [address]Dr. Chrissy Frazier RBC 5.01 106/ul Normal 4.70-6.10 [facility] Comment on above: Performed By: #### C BC ####[facility] Ldiwavcxyu0095 [place] [address]Dr. Chrissy Frazier WBC 15.2 103/ul Critically high 4.0-11.0 [facility] Comment on above: Performed By: #### C BC ####[facility] Tspsmrjths5299 [place] [address]Dr. Chrissy Frazier LIPASEon 09-03-2022 Lipase [Catalytic activity/Vol] 46.0 U/L Critically low 73.0-393.0 [facility] Comment on above: Performed By: #### L TERRENCE VICTORIA, CMP ####[facility] Uihpoadaks[address] [place], [place] [address]Dr. Chrissy Frazier PROF 14(COMP METB)on 022 Albumin [Mass/Vol] 3.7 g/dL Normal 3.4-5.0 [facility] Comment on above: Performed By: #### L JULIEN TERRENCE, CMP ####[facility] Shwtfgzfnk23[address] [place], [place] [address]Dr. Chrissy Frazier Albumin/Globulin [Mass ratio] 1.0 {ratio} Normal [facility] Comment on above: Performed By: #### L JULIEN TERRENCE, CMP ####[facility] Jotrnungty[address] [place], [place] [address]Dr. Chrissy Frazier ALP [Catalytic activity/Vol] 65 U/L Normal 46-116 [facility] Comment on above: Performed By: #### L IPA TERRENCE, CMP ####[facility] Ulerkbegon[address] [place], [place] [address]Dr. Chrissy Frazier ALT [Catalytic activity/Vol] 42 U/L Normal 16-63 [facility] Comment on above: Performed By: #### L TERRENCE VICTORIA, CMP ####[facility] Iyibfjyoah2788 [place] [address]Dr. Chrissy Frazier Anion gap [Moles/Vol] 14.4 mmol/L Normal [facility] Comment on above: Performed By: #### L TERRENCE VICTORIA, CMP ####[facility] Ufvcpgmtic97[address] [place], [place] [address]Dr. Chrissy Frazier AST [Catalytic activity/Vol] 16 U/L Normal 15-37 [facility] Comment on above: Performed By: #### L TERRENCE VICTORIA, CMP ####[facility] Sftqkrxpbe[address] [place], [place] [address]Dr. Chrissy Frazier Bilirubin [Mass/Vol] 0.4 mg/dL Normal 0.2-1.0 [facility] Comment on above: Performed By: #### L TERRENCE VICTORIA, CMP ####[facility] Ttepaawgap[address] [place], [place] [address]Dr. Chrissy Frazier Calcium [Mass/Vol] 8.7 mg/dL Normal 8.5-10.1 [facility] Comment on above: Performed By: #### L TERRENCE VICTORIA, CMP ####[facility] Gxmbiizsoi[address] [place], [place] [address]Dr. Chrissy Frazier Chloride [Moles/Vol] 105 mmol/L Normal 98-107 [facility] Comment on above: Performed By: #### L TERRENCE VICTORIA, CMP ####[facility] Eozwotuino8[address] [place], [place] [address]Dr. Chrissy Frazier CO2 [Moles/Vol] 22.6 mmol/L Normal 21.0-32.0 [facility] Comment on above: Performed By: #### L TERRENCE VICTORIA, CMP ####[facility] Bkbdvleamf[address] [place], [place] [address]Dr. Chrissy Frazier Creatinine [Mass/Vol] 1.11 mg/dL Normal 0.70-1.30 [facility] Comment on above: Performed By: #### L TERRENCE VICTORIA, CMP ####[facility] Czgatvozzq5684 [place] [id number]. Chrissy Frazier EGFR-AF ESTONIAN >60 Normal >=60 [facility] Comment on above: Performed By: #### L TERRENCE VICTORIA, CMP ####[facility] Bebqykhznx2439 [place] [id number]. Chrissy Frazier EGFR-NON AF ESTONIAN >60 Normal >=60 [facility] Comment on above: Performed By: #### L TERRENCE VICTORIA, CMP ####[facility] Siwzhvwqyv6868 [place] [address]Dr. Chrissy Frazier Globulin (S) [Mass/Vol] 3.7 g/dL Normal [facility] Comment on above: Performed By: #### L TERRENCE VICTORIA, CMP ####[facility] Mjclsmdrfi0196 [place] [address]Dr. Chrissy Frazier Glucose [Mass/Vol] 121 mg/dL Critically high 74-106 [facility] Comment on above: Performed By: #### L TERRENCE VICTORIA, CMP ####[facility] Stzlbivyec8859 [place] [address]Dr. Chrissy Frazier Potassium [Moles/Vol] 4.0 mmol/L Normal 3.5-5.1 [facility] Comment on above: Performed By: #### L TERRENCE VICTORIA, CMP ####[facility] Dzgqfcazcy0199 [place] [address]Dr. Chrissy Frazier Protein [Mass/Vol] 7.4 g/dL Normal 6.4-8.2 [facility] Comment on above: Performed By: #### L TERRENCE VICTORIA, CMP ####[facility] Afpjokqihb5513 [place] [address]Dr. Chrissy Frazier Sodium [Moles/Vol] 138 mmol/L Normal 136-145 [facility] Comment on above: Performed By: #### L TERRENCE VICTORIA, CMP ####[facility] Eruxxwsczg5872 [place] [address]Dr. Chrissy Frazier Urea nitrogen [Mass/Vol] 6.0 mg/dL Critically low 7.0-18.0 [facility] Comment on above: Performed By: #### L IPA, TERRENCE, CMP ####[facility] Mkthxfzbzy5888 [place] [address]Dr. Chrissy Frazier Urea nitrogen/Creatinine [Mass ratio] 5.4 mg/mg Normal [facility] Comment on above: Performed By: #### L IPA, TERRENCE, CMP ####[facility] Mridhqltcv8935 [place] [address]Dr. Chrissy Frazier AMYLASEon 09-02-2022 Amylase [Catalytic activity/Vol] 29 U/L Normal 25-115 [facility] Comment on above: Performed By: #### A MY, CMP, LIPA ####[facility] Axeposexec[address] [place], [place] [address]Dr. Chrissy Frazier CBC AUTO DIFFon 09-02-2022 BASO # 0.1 103/ul Normal 0.0-0.1 [facility] Comment on above: Performed By: #### C BC ####[facility] Eppkjmdmio[address] [place], [place] [address]Dr. Chrissy Frazier Basophils/100 WBC (Bld) 0.4 % Normal 0.2-2.0 [facility] Comment on above: Performed By: #### C BC ####[facility] [address]zrfauszk[address] [place], [place] [address]Dr. Chrissy Frazier EO # 0.1 103/ul Normal 0.0-0.7 [facility] Comment on above: Performed By: #### C BC ####[facility] [address] [place], [place] [address]Dr. Chrissy Frazier Eosinophils/100 WBC (Bld) 0.7 % Critically low 0.9-7.0 [facility] Comment on above: Performed By: #### C BC ####[facility] Gmmrxfvzkc[address] [place], [place] [address]Dr. Chrissy Frazier Erythrocyte distribution width (RBC) [Ratio] 13.7 % Normal 11.0-15.0 [facility] Comment on above: Performed By: #### C BC ####[facility] Iqhrwpjlhe96[address] [place], [place] [address]Dr. Chrissy Frazier Hematocrit (Bld) [Volume fraction] 48.3 % Normal 42.0-54.0 [facility] Comment on above: Performed By: #### C BC ####[facility] Plxdymhauv28[address] [place] [address]Dr. Chrissy Frazier Hemoglobin (Bld) [Mass/Vol] 16.0 g/dL Normal 14.0-18.0 [facility] Comment on above: Performed By: #### C BC ####[facility] Atjgdpobnl[address] [place], [place] [address]Dr. Chrissy Frazier IG # 0.09 10e3/ul Critically high 0.00-0.03 [facility] Comment on above: Performed By: #### C BC ####[facility] Aqxlyld[address] [place], [place] [address]Dr. Chrissy Frazier IG % 0.5 % Normal 0.0-0.5 [facility] Comment on above: Performed By: #### C BC ####[facility] Rtliihtzqd[address] [place], [place] [address]Dr. Chrissy Frazier LYMPH # 3.7 103/ul Normal 1.2-3.8 [facility] Comment on above: Performed By: #### C BC ####[facility] Ctjsbhafqm[address] [place], [place] [address]Dr. Chrissy Frazier Lymphocytes/100 WBC (Bld) 21.5 % Normal 20.5-60.0 [facility] Comment on above: Performed By: #### C BC ####[facility] Kcsyahskhg[address] [place], [place] [address]Dr. Chrissy Frazier MANUAL DIFF REQ NO Normal [facility] Comment on above: Performed By: #### C BC ####[facility] Crfpozxmsx[address] [place], [place] [address]Dr. Chrissy Frazier MCH (RBC) [Entitic mass] 28.1 pg Normal 25.9-34.0 [facility] Comment on above: Performed By: #### C BC ####[facility] Xthdfkklun[address] [place], [place] [address]Dr. Chrissy Frazier MCHC (RBC) [Mass/Vol] 33.1 g/dL Normal 29.9-35.2 [facility] Comment on above: Performed By: #### C BC ####[facility] Cizdamlrll2136 [place] [address]DrNancy Chrissy Frazier MCV (RBC) [Entitic vol] 84.7 fL Normal 80.0-94.0 [facility] Comment on above: Performed By: #### C BC ####[facility] Uosdmyijqg4[address] [place], [place] [address]DrNancy Frazier MONO # 0.7 103/ul Normal 0.3-0.8 [facility] Comment on above: Performed By: #### C BC ####[facility] Mcactzslyw3[address] [place], [place] [address]DrNancy Frazier Monocytes/100 WBC (Bld) 4.2 % Normal 1.7-12.0 [facility] Comment on above: Performed By: #### C BC ####[facility] Mwiveklalr[address] [place], [place] [address]DrNancy Frazier NEUT # 12.4 103/ul Critically high 1.4-6.5 [facility] Comment on above: Performed By: #### C BC ####[facility] Keiitnolyt[address] [place], [place] [address]DrNancy Frazier Neutrophils/100 WBC (Bld) 72.7 % Normal 43.0-75.0 [facility] Comment on above: Performed By: #### C BC ####[facility] Lxkowysyvo15[address] [place], [place] [address]DrNancy Frazier Platelet mean volume (Bld) [Entitic vol] 10.9 fL Normal 9.5-13.5 [facility] Comment on above: Performed By: #### C BC ####[facility] Mrqllejckl[address] [place], [place] [address]DrNancy Frazier PLT 386 103/ul Normal 150-450 [facility] Comment on above: Performed By: #### C BC ####[facility] Rfirbzoucv49[address] [place], [place] [address]DrNancy Frazier RBC 5.70 106/ul Normal 4.70-6.10 [facility] Comment on above: Performed By: #### C BC ####[facility] Nttltwgdlw50[address] [place] [id number]. Chrissy Frazier WBC 17.0 103/ul Critically high 4.0-11.0 [facility] Comment on above: Performed By: #### C BC ####[facility] Javwmordrl0639 [place] [id number]. Chrissy Frazier Covid-19 PCR (CVDTB)on 08-21 SARS-CoV-2 (COVID-19) RNA RHIANNON+probe Ql (Unsp spec) Not detected Normal NOT DETECTED [facility] Comment on above: Result Comment: When [...] for this test is supported by the [place] of Health and Human Service's declaration that [...] be used). Performed By: #### C VDTBH ####[facility] Orwibgbuvi49[address] [place] [id number]. Chrissy Frazier LACTATE/LACTIC ACIDon 2021 Lactate [Moles/Vol] 7.1 mmol/L Critically high 0.4-1.9 [facility] Comment on above: Performed By: #### L ACT ####[facility] Sdreexkqpv3006 [place] [phone]. Chrissy Frazier Lactate [Moles/Vol] 8.6 mmol/L Critically high 0.4-1.9 [facility] Comment on above: Performed By: #### L ACT ####[facility] Trqiciadbk1204 [place] [address]Dr. Chrissy Frazier LIPASEon 09-02-2022 Lipase [Catalytic activity/Vol] 60.0 U/L Critically low 73.0-393.0 [facility] Comment on above: Performed By: #### A MY, CMP, LIPA ####[facility] Ajmafcbxrs7563 [place] [address]Dr. Chrissy Frazier POINT OF CARE GLUCOSEon 08-21 Glucose [Mass/Vol] 140 mg/dL Critically high 74-106 [facility] Comment on above: Performed By: #### P OCGLUC ####[facility] Uhibcmnhfr[address] [place], [place] [address]Dr. Chrissy Frazier PROF 14(COMP METB)on 022 Albumin [Mass/Vol] 4.3 g/dL Normal 3.4-5.0 [facility] Comment on above: Performed By: #### A MY, CMP, LIPA ####[facility] Jrpxivxcus[address] [place], [place] [address]Dr. Chrissy Frazier Albumin/Globulin [Mass ratio] 1.0 {ratio} Normal [facility] Comment on above: Performed By: #### A MY, CMP, LIPA ####[facility] Pauhcstasf6693 [place] [address]Dr. Chrissy Frazier ALP [Catalytic activity/Vol] 82 U/L Normal 46-116 [facility] Comment on above: Performed By: #### A MY, CMP, LIPA ####[facility] Owmqthuowx8781 [place] [address]Dr. Chrissy Frazier ALT [Catalytic activity/Vol] 48 U/L Normal 16-63 [facility] Comment on above: Performed By: #### A MY, CMP, LIPA ####[facility] Bygodnrwps6359 [place] [address]Dr. Chrissy Frazier Anion gap [Moles/Vol] 25.3 mmol/L Normal [facility] Comment on above: Performed By: #### A MY, CMP, LIPA ####[facility] Tmutpgcxwj5479 [place] [address]Dr. Chrissy Frazier AST [Catalytic activity/Vol] 33 U/L Normal 15-37 [facility] Comment on above: Performed By: #### A MY, CMP, LIPA ####[facility] Jvwvokngli4724 [place] [address]Dr. Chrissy Frazier Bilirubin [Mass/Vol] 0.7 mg/dL Normal 0.2-1.0 [facility] Comment on above: Performed By: #### A MY, CMP, LIPA ####[facility] Dqojfkygfw[address] [place], [place] [address]Dr. Chrissy Frazier Calcium [Mass/Vol] 9.5 mg/dL Normal 8.5-10.1 [facility] Comment on above: Performed By: #### A MY, CMP, LIPA ####[facility] Dfduzvgddy075[address] [place], [place] [address]Dr. Chrissy Frazier Chloride [Moles/Vol] 100 mmol/L Normal 98-107 [facility] Comment on above: Performed By: #### A MY, CMP, LIPA ####[facility] Ghicqfsrax7[address] [place], [place] [address]Dr. Chrissy Frazier CO2 [Moles/Vol] 14.2 mmol/L Critically low 21.0-32.0 [facility] Comment on above: Performed By: #### A MY, CMP, LIPA ####[facility] Hcqgmrfvxj8[address] [place], [place] [address]Dr. Chrissy Frazier Creatinine [Mass/Vol] 1.70 mg/dL Critically high 0.70-1.30 [facility] Comment on above: Performed By: #### A MY, CMP, LIPA ####[facility] Pdifpdunyc[address] [place], [place] [address]Dr. Chrissy Frazier EGFR-AF ESTONIAN 57 mL/min/1.73m2 Critically low >=60 [facility] Comment on above: Performed By: #### A MY, CMP, LIPA ####[facility] Fkkabkwlnl4465 [place] [address]Dr. Chrissy Frazier EGFR-NON AF ESTONIAN 47 mL/min/1.73m2 Critically low >=60 [facility] Comment on above: Performed By: #### A MY, CMP, LIPA ####[facility] Gitzasleyv7568 [place] [address]Dr. Chrissy Frazier Globulin (S) [Mass/Vol] 4.2 g/dL Normal [facility] Comment on above: Performed By: #### A MY, CMP, LIPA ####[facility] Euowqlqwpj5701 [place] [address]Dr. Chrissy Frazier Glucose [Mass/Vol] 212 mg/dL Critically high 74-106 [facility] Comment on above: Performed By: #### A MY, CMP, LIPA ####[facility] Uxnjwbdhyo7768 [place] [address]Dr. Chrissy Frazier Potassium [Moles/Vol] 3.5 mmol/L Normal 3.5-5.1 [facility] Comment on above: Performed By: #### A MY, CMP, LIPA ####[facility] Tzczdnfnsf2565 [place] [address]Dr. Chrissy Frazier Protein [Mass/Vol] 8.5 g/dL Critically high 6.4-8.2 [facility] Comment on above: Performed By: #### A MY, CMP, LIPA ####[facility] Suzdiimgfw3831 [place] [address]Dr. Chrissy Frazier Sodium [Moles/Vol] 136 mmol/L Normal 136-145 [facility] Comment on above: Performed By: #### A MY, CMP, LIPA ####[facility] Gjjkjacgza1990 [place] [address]Dr. Chrissy Frazier Urea nitrogen [Mass/Vol] 9.0 mg/dL Normal 7.0-18.0 [facility] Comment on above: Performed By: #### A MY, CMP, LIPA ####[facility] Rjnuegkmty8680 [place] [address]Dr. Chrissy Frazier Urea nitrogen/Creatinine [Mass ratio] 5.3 mg/mg Normal [facility] Comment on above: Performed By: #### A MY, CMP, LIPA ####[facility] Peajavaban4415 [place] [address]Dr. Chrissy Frazier AMYLASEon 07-07-2022 Amylase [Catalytic activity/Vol] 33 U/L Normal 25-115 [facility] Comment on above: Performed By: #### C MP, TERRENCE, BNP, LIPA ####[facility] Sxbfixzxlc0[address] [place], [place] [address]Dr. Chrissy Frazier BNPon 07-07-2022 Natriuretic peptide B (Bld) [Mass/Vol] 29.0 pg/mL Normal <=450.0 [facility] Comment on above: Performed By: #### C MP, TERRENCE, BNP, LIPA ####[facility] Bzizibrpuh[address] [place], [place] [address]Dr. Chrissy Frazier CBC AUTO DIFFon 07-07-2022 BASO # 0.0 103/ul Normal 0.0-0.1 [facility] Comment on above: Performed By: #### C BC ####[facility] Htqbucwwzj[address] [place], [place] [address]Dr. Chrissy Frazier Basophils/100 WBC (Bld) 0.4 % Normal 0.2-2.0 [facility] Comment on above: Performed By: #### C BC ####[facility] Vtubrpaipn47[address] [place], [place] [address]Dr. Chrissy Frazier EO # 0.3 103/ul Normal 0.0-0.7 [facility] Comment on above: Performed By: #### C BC ####[facility] Rqpvwyutrf10[address] [place], [place] [address]Dr. Chrissy Frazier Eosinophils/100 WBC (Bld) 3.0 % Normal 0.9-7.0 [facility] Comment on above: Performed By: #### C BC ####[facility] Mcwgjjvvbv99[address] [place], [place] [address]Dr. Chrissy Frazier Erythrocyte distribution width (RBC) [Ratio] 14.0 % Normal 11.0-15.0 [facility] Comment on above: Performed By: #### C BC ####[facility] Opndlrwlnw9389 [place] [address]Dr. Chrissy Frazier Hematocrit (Bld) [Volume fraction] 42.8 % Normal 42.0-54.0 [facility] Comment on above: Performed By: #### C BC ####[facility] Obqlzdastf3347 [place] [address]Dr. Tishrowan Frazier Hemoglobin (Bld) [Mass/Vol] 14.3 g/dL Normal 14.0-18.0 [facility] Comment on above: Result Comment: IV F LUIDS RUNNING Performed By: #### C BC ####[facility] Xbhflzdpsn[address] [place], [place] [address]Dr. Chrissy Frazier IG # 0.05 10e3/ul Critically high 0.00-0.03 [facility] Comment on above: Performed By: #### C BC ####[facility] Uobiyxrlfp52[address] [place], [place] [address]Dr. Chrissy Frazier IG % 0.5 % Normal 0.0-0.5 [facility] Comment on above: Performed By: #### C BC ####[facility] Ytepjvmevj1006 [place] [address]Dr. Chrissy Frazier LYMPH # 2.4 103/ul Normal 1.2-3.8 [facility] Comment on above: Performed By: #### C BC ####[facility] Gcvgkbwezz12[address] [place], [place] [address]Dr. Chrissy Frazier Lymphocytes/100 WBC (Bld) 25.5 % Normal 20.5-60.0 [facility] Comment on above: Performed By: #### C BC ####[facility] Lqzyvpyhef4165 [place] [address]Dr. Chrissy Frazier MANUAL DIFF REQ NO Normal [facility] Comment on above: Performed By: #### C BC ####[facility] Acqipjpkvs3037 [place] [address]Dr. Chrissy Frazier MCH (RBC) [Entitic mass] 28.5 pg Normal 25.9-34.0 [facility] Comment on above: Performed By: #### C BC ####[facility] Bfcbbkqyoc3913 [place] [phone]. Tishrowan Frazier MCHC (RBC) [Mass/Vol] 33.4 g/dL Normal 29.9-35.2 [facility] Comment on above: Performed By: #### C BC ####[facility] Dnzttgrsrl0963 [place] [phone]. Chrissy Frazier MCV (RBC) [Entitic vol] 85.3 fL Normal 80.0-94.0 [facility] Comment on above: Performed By: #### C BC ####[facility] Wjumezokej[address] [place], [place] [address]Dr. Chrissy Frazier MONO # 0.7 103/ul Normal 0.3-0.8 [facility] Comment on above: Performed By: #### C BC ####[facility] Leaqwvhfjm[address] [place], [place] [address]Dr. Chrissy Frazier Monocytes/100 WBC (Bld) 7.8 % Normal 1.7-12.0 [facility] Comment on above: Performed By: #### C BC ####[facility] Agezvbdhzi85[address] [place], [place] [address]Dr. Chrissy Frazier NEUT # 5.8 103/ul Normal 1.4-6.5 [facility] Comment on above: Performed By: #### C BC ####[facility] Pwwomaskgj80[address] [place], [place] [address]Dr. Chrissy Frazier Neutrophils/100 WBC (Bld) 62.8 % Normal 43.0-75.0 [facility] Comment on above: Performed By: #### C BC ####[facility] Gbymijysmf[address] [place], [place] [address]Dr. Chrissy Frazier Platelet mean volume (Bld) [Entitic vol] 10.8 fL Normal 9.5-13.5 [facility] Comment on above: Performed By: #### C BC ####[facility] Yyhprekgaw[address] [place], [place] [address]Dr. Chrissy Frazier PLT 310 103/ul Normal 150-450 [facility] Comment on above: Performed By: #### C BC ####[facility] Lfvbaukjih3543 [place] [id number]. Chrissy Freddie RBC 5.02 106/ul Normal 4.70-6.10 [facility] Comment on above: Performed By: #### C BC ####[facility] Tcycqzmkfv4643 [place] [phone]. Chrissy Freddie WBC 9.3 103/ul Normal 4.0-11.0 [facility] Comment on above: Performed By: #### C BC ####[facility] Decrsitofd0495 [place] [phone]. Chrissy Frazier CULTURE URINEon 07-07-2022 CULTURE URINE Culture Observations: NO GROWTH. Normal [facility] Comment on above: Performed By: #### U RCX ####[facility] Ksbpxcqbdr[address] [place], [place] [address]Dr. Chrissy Frazier DRUG SCREEN RAPID (URINE)on 07-07-2022 AMP Negative Normal NEGATIVE [facility] Comment on above: Performed By: #### D RUGRPD ####[facility] Vnnauzlvuv8861 [place] [phone]. Chrissy Frazier BAR Negative Normal NEGATIVE [facility] Comment on above: Performed By: #### D RUGRPD ####[facility] Jfmexhcegm8604 [place] [phone]. Chrissy Frazier BUP Negative Normal NEGATIVE [facility] Comment on above: Performed By: #### D RUGRPD ####[facility] Ecwisotxcz4727 [place] [address]Dr. Chrissy Frazier BZO Positive Abnormal NEGATIVE [facility] Comment on above: Performed By: #### D RUGRPD ####[facility] Flhhxrbfdb3158 [place] [address]Dr. Chrissy Frazier LAUREN Negative Normal NEGATIVE [facility] Comment on above: Performed By: #### D RUGRPD ####[facility] Hadecuitdz4180 [place] [phone]. Chrissy Frazier CUT-OFFS SEE BELOW Normal [facility] Comment on above: Result Comment: AMP (Amphetamine): 500ng/mL, BAR (Barbituates): 200 ng/mL, BZO (Benzodiazepines): 150 ng/mL, BUP (Buprenorphine): 10 ng/mL, LAUREN (Cocaine): 150 ng/mL, mAMP (Methamphetamine): 500 ng/mL, MTD (Methadone): 200 ng/mL, OPI (Opiates): 100 ng/mL, OXY (Oxycodone): 100 ng/mL, PCP (Phencyclidine): 25 ng/mL, PPX (Propoxyphene): 300 ng/mL, THC (Cannabinoids): 50 ng/mL, TCA (Trycyclic Antidepressants): 300 ng/mL Performed By: #### D RUGRPD ####[facility] Cyetxutkln[address] [place], [place] [address]Dr. [facility] DRUG CUT HEADER DRUG CLASS TEST SYSTEM CUT-OFF CONCENTRATIONS ARE FOLLOWS: Normal [facility] Comment on above: Performed By: #### D RUGRPD ####[facility] Nlbdqvsrgp[address] [place], [place] [address]Dr. Chrissy Frazier mAMP Negative Normal NEGATIVE [facility] Comment on above: Performed By: #### D RUGRPD ####[facility] Jxtojydbzs694[address] [place], [place] [address]Dr. Tishrowan [facility] MTD Negative Normal NEGATIVE [facility] Comment on above: Performed By: #### D RUGRPD ####[facility] Mmheznnpgn[address] [place], [place] [address]Dr. [facility] O[facility] Negative Normal NEGATIVE [facility] Comment on above: Performed By: #### D RUGRPD ####[facility] Cktulzxdmi[address] [place], [place] [address]Dr. Chrissy Frazier OXY Negative Normal NEGATIVE [facility] Comment on above: Performed By: #### D RUGRPD ####[facility] Xksomuibub3[address] [place], [place] [address]Dr. Tishrowan [facility] PCP Negative Normal NEGATIVE [facility] Comment on above: Performed By: #### D RUGRPD ####[facility] Jsirathozn[address] [place], [place] [address]Dr. Chrissy [facility] PPX Negative Normal NEGATIVE [facility] Comment on above: Performed By: #### D RUGRPD ####[facility] Ttkfklofqj3850 [place] [address]Dr. Chrissy Frazier TCA Positive Abnormal NEGATIVE [facility] Comment on above: Performed By: #### D RUGRPD ####[facility] Jwigjesala8974 [place] [address]Dr. Chrissy Frazier THC Positive Abnormal NEGATIVE [facility] Comment on above: Performed By: #### D RUGRPD ####[facility] Drcofwwvri5189 [place] [address]Dr. Chrissy Frazier LIPASEon 07-07-2022 Lipase [Catalytic activity/Vol] 118.0 U/L Normal 73.0-393.0 [facility] Comment on above: Performed By: #### L IPA ####[facility] Fyhsiorlfg[address] [place], [place] [address]Dr. Chrissy Frazier Lipase [Catalytic activity/Vol] 114.0 U/L Normal 73.0-393.0 [facility] Comment on above: Performed By: #### C MP, TERRENCE, BNP, LIPA ####[facility] Qllkameide5645 [place] [address]Dr. Chrissy Frazier PROF 14(COMP METB)on 022 Albumin [Mass/Vol] 3.4 g/dL Normal 3.4-5.0 [facility] Comment on above: Performed By: #### C MP, TERRENCE, BNP, LIPA ####[facility] Dofhsczvaa2067 [place] [address]Dr. Chrissy Frazier Albumin/Globulin [Mass ratio] 1.1 {ratio} Normal [facility] Comment on above: Performed By: #### C MP, TERRENCE, BNP, LIPA ####[facility] Wbhafogenx9577 [place] [address]Dr. Chrissy Frazier ALP [Catalytic activity/Vol] 68 U/L Normal 46-116 [facility] Comment on above: Performed By: #### C MP, TERRENCE, BNP, LIPA ####[facility] Exwzitxxsl2236 [place] [address]Dr. Chrissy Frazier ALT [Catalytic activity/Vol] 93 U/L Critically high 16-63 [facility] Comment on above: Performed By: #### C MP, TERRENCE, BNP, LIPA ####[facility] Uflpjudxpi9153 [place] [address]Dr. Chrissy Frazier Anion gap [Moles/Vol] 14.4 mmol/L Normal [facility] Comment on above: Performed By: #### C MP, TERRENCE, BNP, LIPA ####[facility] Fovnprmbga4584 [place] [address]Dr. Chrissy Frazier AST [Catalytic activity/Vol] 33 U/L Normal 15-37 [facility] Comment on above: Performed By: #### C MP, TERRENCE, BNP, LIPA ####[facility] Fzknfpgvsd8953 [place] [address]Dr. Chrissy Frazier Bilirubin [Mass/Vol] 0.9 mg/dL Normal 0.2-1.0 [facility] Comment on above: Performed By: #### C MP, TERRENCE, BNP, LIPA ####[facility] Waczxypxcw9028 [place] [address]Dr. Chrissy Frazier Calcium [Mass/Vol] 8.2 mg/dL Critically low 8.5-10.1 [facility] Comment on above: Performed By: #### C MP, TERRENCE, BNP, LIPA ####[facility] Mcilhhkyib[address] [place], [place] [address]Dr. Chrissy Frazier Chloride [Moles/Vol] 103 mmol/L Normal 98-107 [facility] Comment on above: Performed By: #### C MP, TERRENCE, BNP, LIPA ####[facility] Lkxeugsgtc1442 [place] [address]Dr. Chrissy Frazier CO2 [Moles/Vol] 22.9 mmol/L Normal 21.0-32.0 [facility] Comment on above: Performed By: #### C MP, TERRENCE, BNP, LIPA ####[facility] Ooaayvjxix[address] [place], [place] [address]Dr. Chrissy Frazier Creatinine [Mass/Vol] 1.07 mg/dL Normal 0.70-1.30 [facility] Comment on above: Performed By: #### C MP, TERRENCE, BNP, LIPA ####[facility] Uumqixnrzl3717 [place] [address]Dr. Chrissy Frazier EGFR-AF ESTONIAN >60 Normal >=60 [facility] Comment on above: Performed By: #### C MP, TERRENCE, BNP, LIPA ####[facility] Csbvyghxem2709 [place] [address]Dr. Tishlan Frazier EGFR-NON AF ESTONIAN >60 Normal >=60 [facility] Comment on above: Performed By: #### C MP, TERRENCE, BNP, LIPA ####[facility] Yicljzdanm1340 [place] [address]Dr. Chrissy Frazier Globulin (S) [Mass/Vol] 3.2 g/dL Normal [facility] Comment on above: Performed By: #### C MP, TERRENCE, BNP, LIPA ####[facility] Yhsxmmwspb[address] [place], [place] [address]Dr. Chrissy Frazier Glucose [Mass/Vol] 96 mg/dL Normal 74-106 [facility] Comment on above: Performed By: #### C MP, TERRENCE, BNP, LIPA ####[facility] Fconkjjece3182 [place] [address]Dr. Chrissy Frazier Potassium [Moles/Vol] 3.3 mmol/L Critically low 3.5-5.1 [facility] Comment on above: Performed By: #### C MP, TERRENCE, BNP, LIPA ####[facility] Mdsdqkedxp8428 [place] [address]Dr. Chrissy Frazier Protein [Mass/Vol] 6.6 g/dL Normal 6.4-8.2 [facility] Comment on above: Performed By: #### C MP, TERRENCE, BNP, LIPA ####[facility] Fsekisioqj1978 [place] [address]Dr. Chrissy Frazier Sodium [Moles/Vol] 137 mmol/L Normal 136-145 [facility] Comment on above: Performed By: #### C MP, TERRENCE, BNP, LIPA ####[facility] Zvsfcffolh9314 [place] [address]Dr. Chrissy Frazier Urea nitrogen [Mass/Vol] 13.0 mg/dL Normal 7.0-18.0 [facility] Comment on above: Performed By: #### C MP, TERRENCE, BNP, LIPA ####[facility] Aoorketpzx6905 [place] [address]Dr. Chrissy Frazier Urea nitrogen/Creatinine [Mass ratio] 12.1 mg/mg Normal [facility] Comment on above: Performed By: #### C MP, TERRENCE, BNP, LIPA ####[facility] Ufudcjokhd2614 [place] [address]Dr. Chrissy Frazier UA RANDOM W/MICROSCOPICon BACTERIA TRACE Abnormal NONE SEEN [facility] Comment on above: Performed By: #### U AMIC ####[facility] Ilmwqslzoo[address] [place], [place] [address]Dr. Chrissy Frazier Bilirubin Ql (U) Negative Normal NEGATIVE [facility] Comment on above: Performed By: #### U AMIC ####[facility] Mouelkisdm[address] [place], [place] [address]Dr. Chrissy Frazier CAST NONE SEEN Normal NONE SEEN [facility] Comment on above: Performed By: #### U AMIC ####[facility] Cvbupnawcc3818 [place] [address]Dr. Chrissy Frazier Clarity (U) CLEAR Normal CLEAR [facility] Comment on above: Performed By: #### U AMIC ####[facility] Ntawmnzxgs[address] [place], [place] [address]Dr. Chrissy Frazier Color (U) YELLOW Normal YELLOW [facility] Comment on above: Performed By: #### U AMIC ####[facility] Zarngbkifw[address] [place], [place] [address]Dr. Chrissy Frazier Crystals LM Nom (Urine sed) SEEN Abnormal NONE SEEN [facility] Comment on above: Performed By: #### U AMIC ####[facility] Njrvxgudaq[address] [place], [place] [address]Dr. Chrissy Frazier Epithelial cells LM Ql (Urine sed) RARE Normal NONE SEEN /RARE [facility] Comment on above: Performed By: #### U AMIC ####[facility] Ivxkkcvlrh9806 [place] [address]Dr. Tishrowan Freddie Glucose Ql (U) Negative Normal NEGATIVE [facility] Comment on above: Performed By: #### U AMIC ####[facility] Imjjmfmsvp9924 [place] [address]Dr. Chrissy Frazier Hemoglobin Ql (U) Negative Normal NEGATIVE [facility] Comment on above: Performed By: #### U AMIC ####[facility] Gednpybvie4186 [place] [address]Dr. Chrissy Frazier Ketones Ql (U) 15 mg/dl Abnormal NEGATIVE [facility] Comment on above: Performed By: #### U AMIC ####[facility] Cljubtqgqs3145 [place] [address]Dr. Chrissy Frazier LEUKOCYTES Negative Normal NEGATIVE [facility] Comment on above: Performed By: #### U AMIC ####[facility] Umupgzwjnl[address] [place], [place] [address]Dr. Tishrowan Freddie MUCOUS NONE SEEN Normal NONE SEEN [facility] Comment on above: Performed By: #### U AMIC ####[facility] Sptdljoniw9[address] [place], [place] [address]Dr. Chrissy Frazier Nitrite Ql (U) Negative Normal NEGATIVE [facility] Comment on above: Performed By: #### U AMIC ####[facility] Gdwnlebqxb[address] [place], [place] [address]Dr. Chrissy Frazier pH (U) 6.0 [pH] Normal 5-9 [facility] Comment on above: Performed By: #### U AMIC ####[facility] Kdiqfofqgi[address] [place], [place] [address]Dr. Chrissy Frazier RBC 0-2 Normal 0-2 [facility] Comment on above: Performed By: #### U AMIC ####[facility] Cmhfrcxpao2886 [place] [address]Dr. Chrissy Frazier SPEC GRAVITY 1.015 Normal 1.005-<=1.025 [facility] Comment on above: Performed By: #### U AMIC ####[facility] Mkehstbhvz6[address] [place] [address]Dr. Chrissy Frazier UA PROTEIN Negative Normal NEGATIVE/ TRACE [facility] Comment on above: Performed By: #### U AMIC ####[facility] Sucvhxhptq3867 [place] [id number]. Chrissy Frazier URIC ACID CRYSTALS RARE Normal [facility] Comment on above: Performed By: #### U AMIC ####[facility] Lswqidezxt2757 [place] [address]Dr. Chrissy Frazier Urobilinogen Qn (U) 0.2 {Estrellita'U}/dL Normal 0.2 - 1. 0 [facility] Comment on above: Performed By: #### U AMIC ####[facility] Wfafqmblpy[address] [place] [address]Dr. Chrissy Frazier WBC 0-2 Abnormal NONE SEEN [facility] Comment on above: Performed By: #### U AMIC ####[facility] Kvxcnopaaz7391 [place] [address]Dr. Chrissy Frazier AMYLASEon 07-06-2022 Amylase [Catalytic activity/Vol] 37 U/L Normal 25-115 [facility] Comment on above: Performed By: #### C MP, LIPA, TERRENCE ####[facility] Omzewxydcc5829 [place] [address]Dr. Chrissy Frazier CBC AUTO DIFFon 07-06-2022 BASO # 0.1 103/ul Normal 0.0-0.1 [facility] Comment on above: Performed By: #### C BC ####[facility] Mlomezmbcb[address] [place], [place] [address]Dr. Chrissy Frazier Basophils/100 WBC (Bld) 0.4 % Normal 0.2-2.0 [facility] Comment on above: Performed By: #### C BC ####[facility] Bfsxedfeca[address] [place], [place] [address]Dr. Chrissy Frazier EO # 0.1 103/ul Normal 0.0-0.7 [facility] Comment on above: Performed By: #### C BC ####[facility] Mspbjdfnmc1897 [place] [id number]. Chrissy Frazier Eosinophils/100 WBC (Bld) 0.5 % Critically low 0.9-7.0 [facility] Comment on above: Performed By: #### C BC ####[facility] Akpmhjvqdb7484 [place] [id number]. Chrissy Frazier Erythrocyte distribution width (RBC) [Ratio] 13.6 % Normal 11.0-15.0 [facility] Comment on above: Performed By: #### C BC ####[facility] Fwlkwdrbyj2836 [place] [phone]. Chrissy Frazier Hematocrit (Bld) [Volume fraction] 47.9 % Normal 42.0-54.0 [facility] Comment on above: Performed By: #### C BC ####[facility] Hxptwqybcp27[address] [place], [place] [address]Dr. Chrissy Frazier Hemoglobin (Bld) [Mass/Vol] 16.4 g/dL Normal 14.0-18.0 [facility] Comment on above: Performed By: #### C BC ####[facility] Weykxcxmvd524[address] [place], [place] [address]Dr. Chrissy Frazier IG # 0.09 10e3/ul Critically high 0.00-0.03 [facility] Comment on above: Performed By: #### C BC ####[facility] Escoydtnoa1757 [place] [address]Dr. Chrissy Frazier IG % 0.6 % Critically high 0.0-0.5 [facility] Comment on above: Performed By: #### C BC ####[facility] Baiuiqoddr[address] [place], [place] [address]Dr. Chrissy Frazier LYMPH # 2.5 103/ul Normal 1.2-3.8 [facility] Comment on above: Performed By: #### C BC ####[facility] Xgrifqcihe2646 [place] [phone]. Chrissy Frazier Lymphocytes/100 WBC (Bld) 16.7 % Critically low 20.5-60.0 [facility] Comment on above: Performed By: #### C BC ####[facility] Folazkzrkg9923 [place] [address]Dr. Chrissy Frazier MANUAL DIFF REQ NO Normal [facility] Comment on above: Performed By: #### C BC ####[facility] Hamowjchbv6653 [place] [phone]. Chrissy Frazier MCH (RBC) [Entitic mass] 28.1 pg Normal 25.9-34.0 [facility] Comment on above: Performed By: #### C BC ####[facility] Aohrrpbcjn3996 [place] [address]Dr. Chrissy Frazier MCHC (RBC) [Mass/Vol] 34.2 g/dL Normal 29.9-35.2 [facility] Comment on above: Performed By: #### C BC ####[facility] Inbdxckhdt266[address] [place], [place] [address]Dr. Chrissy Frazier MCV (RBC) [Entitic vol] 82.2 fL Normal 80.0-94.0 [facility] Comment on above: Performed By: #### C BC ####[facility] Sjryletojp95[address] [place], [place] [address]Dr. Chrissy Frazier MONO # 1.0 103/ul Critically high 0.3-0.8 [facility] Comment on above: Performed By: #### C BC ####[facility] Zucodowzen[address] [place], [place] [address]Dr. Chrissy Frazier Monocytes/100 WBC (Bld) 6.7 % Normal 1.7-12.0 [facility] Comment on above: Performed By: #### C BC ####[facility] Plbtsaidob11[address] [place], [place] [address]DrNancy Frazier NEUT # 11.3 103/ul Critically high 1.4-6.5 [facility] Comment on above: Performed By: #### C BC ####[facility] Ubfyqfxchz447[address] [place], [place] [address]DrNancy Frazier Neutrophils/100 WBC (Bld) 75.1 % Critically high 43.0-75.0 [facility] Comment on above: Performed By: #### C BC ####[facility] Kkujsketgq4782 [place] [phone]. Chrissy Frazier Platelet mean volume (Bld) [Entitic vol] 10.6 fL Normal 9.5-13.5 [facility] Comment on above: Performed By: #### C BC ####[facility] Abajmslxuy6901 [place] [phone]. Chrissy Frazier PLT 416 103/ul Normal 150-450 [facility] Comment on above: Performed By: #### C BC ####[facility] Fqduliwuyw7761 [place], [place] [address]Kl. Chrissy Frazier RBC 5.83 106/ul Normal 4.70-6.10 [facility] Comment on above: Performed By: #### C BC ####[facility] Lhrnznwhfx7014 [place] [phone]. Chrissy Frazier WBC 15.0 103/ul Critically high 4.0-11.0 [facility] Comment on above: Performed By: #### C BC ####[facility] Lbnzyjtfxv0351 [place], [place] [address]Uv. Chrissy Frazier Covid-19 PCR ([facility])on 06-21 SARS-CoV-2 (COVID-19) RNA RHIANNON+probe Ql (Unsp spec) Not detected Normal NOT DETECTED [facility] Comment on above: Result Comment: When [...] for this test is supported by the [employer] of Health and Human Service's declaration that [...] be used). Performed By: #### C VDTBH ####[facility] Njucxdfpke5[address] [place] [address]Dr. Chrissy Frazier LIPASEon 07-06-2022 Lipase [Catalytic activity/Vol] 130.0 U/L Normal 73.0-393.0 [facility] Comment on above: Performed By: #### C MP, LIPA, TERRENCE ####[facility] Ydmbauazyq1611 [place] [address]Dr. Chrissy Frazier PROF 14(COMP METB)on 022 Albumin [Mass/Vol] 4.4 g/dL Normal 3.4-5.0 [facility] Comment on above: Performed By: #### C MP, LIPA, TERRENCE ####[facility] Asqvvdjkwf88[address] [place], [place] [address]Dr. Chrissy Frazier Albumin/Globulin [Mass ratio] 1.1 {ratio} Normal [facility] Comment on above: Performed By: #### C MP, LIPA, TERRENCE ####[facility] Fsxbsekkin96[address] [place], [place] [address]Dr. Chrissy Frazier ALP [Catalytic activity/Vol] 83 U/L Normal 46-116 [facility] Comment on above: Performed By: #### C MP, LIPA, TERRENCE ####[facility] Ibwcpdpdvh12[address] [place], [place] [address]Dr. Chrissy Frazier ALT [Catalytic activity/Vol] 107 U/L Critically high 16-63 [facility] Comment on above: Performed By: #### C MP, LIPA, TERRENCE ####[facility] Eflkjxdwwn9040[address] [place], [place] [address]Dr. Chrissy Frazier Anion gap [Moles/Vol] 20.5 mmol/L Normal [facility] Comment on above: Performed By: #### C MP, LIPA, TERRENCE ####[facility] Wyewxaeogn[address] [place], [place] [address]Dr. Chrissy Frazier AST [Catalytic activity/Vol] 46 U/L Critically high 15-37 [facility] Comment on above: Performed By: #### C OSWALD ADAIR TERRENCE ####[facility] Hkkxjhbyko9724 [place] [address]Dr. Chrissy Frazier Bilirubin [Mass/Vol] 1.2 mg/dL Critically high 0.2-1.0 [facility] Comment on above: Performed By: #### C OSWALD ADAIR, TERRENCE ####[facility] Vgncgcivzt37[address] [place], [place] [address]Dr. Chrissy Frazier Calcium [Mass/Vol] 9.1 mg/dL Normal 8.5-10.1 [facility] Comment on above: Performed By: #### C OSWALD ADAIR, TERRENCE ####[facility] Uffnyfgnvw16[address] [place], [place] [address]Dr. Chrissy Frazier Chloride [Moles/Vol] 100 mmol/L Normal 98-107 [facility] Comment on above: Performed By: #### C OSWALD ADAIR, TERRENCE ####[facility] Zjpqnvwecx33[address] [place], [place] [address]Dr. Chrissy Frazier CO2 [Moles/Vol] 18.6 mmol/L Critically low 21.0-32.0 [facility] Comment on above: Performed By: #### C OSWALD ADAIR, TERRENCE ####[facility] Zmrtcpesio[address] [place], [place] [address]Dr. Chrissy Frazier Creatinine [Mass/Vol] 1.44 mg/dL Critically high 0.70-1.30 [facility] Comment on above: Performed By: #### C OSWALD ADAIR, TERRENCE ####[facility] Guonejqdww87[address] [place], [place] [address]Dr. Chrissy Frazier EGFR-AF ESTONIAN >60 Normal >=60 [facility] Comment on above: Performed By: #### C OSWALD ADAIR, TERRENCE ####[facility] Koehojqwfj9193 [place] [address]Dr. Chrissy Frazier EGFR-NON AF ESTONIAN 57 mL/min/1.73m2 Critically low >=60 [facility] Comment on above: Performed By: #### C OSWALD ADAIR, TERRENCE ####[facility] Zsafazdcpb2643 [place] [address]Dr. Chrissy Frazier Globulin (S) [Mass/Vol] 4.0 g/dL Normal [facility] Comment on above: Performed By: #### C MP, LIPA, TERRENCE ####[facility] Mbnmmfwdmv9077 [place] [address]Dr. Chrissy Frazier Glucose [Mass/Vol] 117 mg/dL Critically high 74-106 [facility] Comment on above: Performed By: #### C MP, LIPA, TERRENCE ####[facility] Hiwvoycole2905 [place] [address]Dr. Chrissy Frazier Potassium [Moles/Vol] 3.1 mmol/L Critically low 3.5-5.1 [facility] Comment on above: Performed By: #### C MP, LIPA, TERRENCE ####[facility] Fyyiaxbtle1727 [place] [address]Dr. Chrissy Frazier Protein [Mass/Vol] 8.4 g/dL Critically high 6.4-8.2 [facility] Comment on above: Performed By: #### C MP, LIPA, TERRENCE ####[facility] Ebhxtmguwv[address] [place], [place] [address]Dr. Chrissy Frazier Sodium [Moles/Vol] 136 mmol/L Normal 136-145 [facility] Comment on above: Performed By: #### C MP, LIPA, TERRENCE ####[facility] Cbhngqscbl0924 [place] [address]Dr. Chrissy Frazier Urea nitrogen [Mass/Vol] 15.0 mg/dL Normal 7.0-18.0 [facility] Comment on above: Performed By: #### C MP, LIPA, TERRENCE ####[facility] Whshxdiube26[address] [place], [place] [address]Dr. Chrissy Frazier Urea nitrogen/Creatinine [Mass ratio] 10.4 mg/mg Normal [facility] Comment on above: Performed By: #### C MP, LIPA, TERRENCE ####[facility] Capvovovkr9390 [place] [address]Dr. Chrissy Frazier CBC AUTO DIFFon 07-05-2022 BASO # 0.0 103/ul Normal 0.0-0.1 [facility] Comment on above: Performed By: #### C BC ####[facility] Uokhmuukvj9160 [place] [id number]. Chrissy Frazier Basophils/100 WBC (Bld) 0.3 % Normal 0.2-2.0 [facility] Comment on above: Performed By: #### C BC ####[facility] Jonqmfemhx2290 [place] [phone]. Chrissy Freddie EO # 0.2 103/ul Normal 0.0-0.7 [facility] Comment on above: Performed By: #### C BC ####[facility] Pprypmtzwh0705 [place] [address]Dr. Chrissy Freddie Eosinophils/100 WBC (Bld) 1.5 % Normal 0.9-7.0 [facility] Comment on above: Performed By: #### C BC ####[facility] Awdhcvfvvd4597 [place] [address]Dr. Chrissy Frazier Erythrocyte distribution width (RBC) [Ratio] 13.9 % Normal 11.0-15.0 [facility] Comment on above: Performed By: #### C BC ####[facility] Editlifbzt1941 [place] [phone]. Chrissy Frazier Hematocrit (Bld) [Volume fraction] 44.5 % Normal 42.0-54.0 [facility] Comment on above: Performed By: #### C BC ####[facility] Iikojilpmj0042 [place] [phone]. Chrissy Frazier Hemoglobin (Bld) [Mass/Vol] 14.8 g/dL Normal 14.0-18.0 [facility] Comment on above: Performed By: #### C BC ####[facility] Rnqmpiuiik6486 [place] [phone]. Chrissy Freddie IG # 0.05 10e3/ul Critically high 0.00-0.03 [facility] Comment on above: Performed By: #### C BC ####[facility] Lkdpjapdix8021 [place] [phone]. Tishrowan Frazier IG % 0.4 % Normal 0.0-0.5 [facility] Comment on above: Performed By: #### C BC ####[facility] Qfuumcfdrb7765 [place] [address]Dr. Chrissy Freddie LYMPH # 3.3 103/ul Normal 1.2-3.8 [facility] Comment on above: Performed By: #### C BC ####[facility] Zuerbwjmqe0685 [place] [address]Dr. Tishrowan Frazier Lymphocytes/100 WBC (Bld) 29.1 % Normal 20.5-60.0 [facility] Comment on above: Performed By: #### C BC ####[facility] Wbacxndsbu5250 [place] [address]Dr. Tishrowan Frazier MANUAL DIFF REQ NO Normal [facility] Comment on above: Performed By: #### C BC ####[facility] Jiuqyalans4907 [place] [address]Dr. Chrissy Freddie MCH (RBC) [Entitic mass] 28.2 pg Normal 25.9-34.0 [facility] Comment on above: Performed By: #### C BC ####[facility] Pkepocizno7[address] [place], [place] [address]Dr. Chrissy Freddie MCHC (RBC) [Mass/Vol] 33.3 g/dL Normal 29.9-35.2 [facility] Comment on above: Performed By: #### C BC ####[facility] Fzhchokkwq53[address] [place], [place] [address]Dr. Tishrowan Frazier MCV (RBC) [Entitic vol] 84.9 fL Normal 80.0-94.0 [facility] Comment on above: Performed By: #### C BC ####[facility] Oyurigezvb5[address] [place], [place] [address]Dr. Chrissy Frazier MONO # 0.6 103/ul Normal 0.3-0.8 [facility] Comment on above: Performed By: #### C BC ####[facility] Jbtfrbyvim[address] [place], [place] [address]Dr. Chrissy Frazier Monocytes/100 WBC (Bld) 5.4 % Normal 1.7-12.0 [facility] Comment on above: Performed By: #### C BC ####[facility] Wkwpkwzcuw1262 [place] [phone]. Chrissy Frazier NEUT # 7.1 103/ul Critically high 1.4-6.5 [facility] Comment on above: Performed By: #### C BC ####[facility] Xlytogiotg7987 [place] [address]Dr. Chrissy Frazier Neutrophils/100 WBC (Bld) 63.3 % Normal 43.0-75.0 [facility] Comment on above: Performed By: #### C BC ####[facility] Pfjaotkvrj4668 [place] [address]Dr. Chrissy Frazier Platelet mean volume (Bld) [Entitic vol] 9.9 fL Normal 9.5-13.5 [facility] Comment on above: Performed By: #### C BC ####[facility] Cafafidtup9118 [place] [address]Dr. Chrissy Frazier PLT 339 103/ul Normal 150-450 [facility] Comment on above: Performed By: #### C BC ####[facility] Gtbwroaxqn1493 [place] [address]Dr. Chrissy Frazier RBC 5.24 106/ul Normal 4.70-6.10 [facility] Comment on above: Performed By: #### C BC ####[facility] Ysvnjbelkn6899 [place] [phone]. Chrissy Frazier WBC 11.2 103/ul Critically high 4.0-11.0 [facility] Comment on above: Performed By: #### C BC ####[facility] Pxvwmasiyj7020 [place] [address]Dr. Chrissy Freddie PROF 14(COMP METB)on 022 Albumin [Mass/Vol] 3.8 g/dL Normal 3.4-5.0 [facility] Comment on above: Performed By: #### C MP ####[facility] Jyeynnvzgp5857 [place] [address]Dr. Chrissy Freddie Albumin/Globulin [Mass ratio] 1.1 {ratio} Normal [facility] Comment on above: Performed By: #### C MP ####[facility] Bsqlvboype5921 [place] [address]Dr. Chrissy Frazier ALP [Catalytic activity/Vol] 67 U/L Normal 46-116 [facility] Comment on above: Performed By: #### C MP ####[facility] Zzlomdhewj55[address] [place], [place] [address]Dr. Chrissy Frazier ALT [Catalytic activity/Vol] 75 U/L Critically high 16-63 [facility] Comment on above: Performed By: #### C MP ####[facility] Zwcfmydxfh6[address] [place], [place] [address]Dr. Chrissy Frazier Anion gap [Moles/Vol] 14.3 mmol/L Normal [facility] Comment on above: Performed By: #### C MP ####[facility] Qnfdppqsww[address] [place], [place] [address]Dr. Chrissy Frazier AST [Catalytic activity/Vol] 40 U/L Critically high 15-37 [facility] Comment on above: Performed By: #### C MP ####[facility] Wbzolyrwbc874[address] [place], [place] [address]Dr. Chrissy Frazier Bilirubin [Mass/Vol] 0.9 mg/dL Normal 0.2-1.0 [facility] Comment on above: Performed By: #### C MP ####[facility] Nutzrhzred994[address] [place], [place] [address]Dr. Chrissy Frazier Calcium [Mass/Vol] 8.4 mg/dL Critically low 8.5-10.1 [facility] Comment on above: Performed By: #### C MP ####[facility] Pfkxwtkoau9[address] [place], [place] [address]Dr. Chrissy Frazier Chloride [Moles/Vol] 104 mmol/L Normal 98-107 [facility] Comment on above: Performed By: #### C MP ####[facility] Fvfxtkdkbn9475[address] [place], [place] [address]Dr. Chrissy Frazier CO2 [Moles/Vol] 24.1 mmol/L Normal 21.0-32.0 [facility] Comment on above: Performed By: #### C MP ####[facility] Mqzowkybxy0203 [place] [address]Dr. Tishrowan Frazier Creatinine [Mass/Vol] 1.11 mg/dL Normal 0.70-1.30 [facility] Comment on above: Performed By: #### C MP ####[facility] Xxncnycsvl5088 [place] [address]Dr. Chrissy Freddie EGFR-AF ESTONIAN >60 Normal >=60 [facility] Comment on above: Performed By: #### C MP ####[facility] Qxfqtmohfg280[address] [place], [place] [address]Dr. Chrissy Frazier EGFR-NON AF ESTONIAN >60 Normal >=60 [facility] Comment on above: Performed By: #### C MP ####[facility] Fhybhprlwy7[address] [place], [place] [address]Dr. Chrissy Frazier Globulin (S) [Mass/Vol] 3.6 g/dL Normal [facility] Comment on above: Performed By: #### C MP ####[facility] Pyfrqunlej5769[address] [place], [place] [address]Dr. Chrissy Frazier Glucose [Mass/Vol] 89 mg/dL Normal 74-106 [facility] Comment on above: Performed By: #### C MP ####[facility] Enwgmtzedk8458[address] [place], [place] [address]Dr. Chrissy Frazier Potassium [Moles/Vol] 3.4 mmol/L Critically low 3.5-5.1 [facility] Comment on above: Performed By: #### C MP ####[facility] Rhhwsxkwgc94[address] [place], [place] [address]Dr. Chrissy Frazier Protein [Mass/Vol] 7.4 g/dL Normal 6.4-8.2 [facility] Comment on above: Performed By: #### C MP ####[facility] Uhaakdluij[address] [place], [place] [address]Dr. Chrissy Frazier Sodium [Moles/Vol] 139 mmol/L Normal 136-145 [facility] Comment on above: Performed By: #### C MP ####[facility] Wsgektysuu0825[address] [place], [place] [address]Dr. Chrissy Frazier Urea nitrogen [Mass/Vol] 10.0 mg/dL Normal 7.0-18.0 [facility] Comment on above: Performed By: #### C MP ####[facility] Keteyncley983[address] [place], [place] [address]Dr. Chrissy Frazier Urea nitrogen/Creatinine [Mass ratio] 9.0 mg/mg Normal [facility] Comment on above: Performed By: #### C MP ####[facility] Ueavcmyyad028[address] [place], [place] [address]Dr. Chrissy Frazier CBC AUTO DIFFon 07-04-2022 BASO # 0.0 103/ul Normal 0.0-0.1 [facility] Comment on above: Performed By: #### C BC ####[facility] Skpufasdzi9235[address] [place], [place] [address]Dr. Chrissy Frazier Basophils/100 WBC (Bld) 0.2 % Normal 0.2-2.0 [facility] Comment on above: Performed By: #### C BC ####[facility] Snwyqhjfgr58[address] [place], [place] [address]DrNancy Frazier EO # 0.0 103/ul Normal 0.0-0.7 [facility] Comment on above: Performed By: #### C BC ####[facility] Nmdgxqfxet098[address] [place], [place] [address]Dr. Chrissy Frazier Eosinophils/100 WBC (Bld) 0.3 % Critically low 0.9-7.0 [facility] Comment on above: Performed By: #### C BC ####[facility] Okizmrzfzr3177[address] [place], [place] [address]Dr. Chrissy Frazier Erythrocyte distribution width (RBC) [Ratio] 14.0 % Normal 11.0-15.0 [facility] Comment on above: Performed By: #### C BC ####[facility] Zlyomfetfd857[address] [place], [place] [address]Dr. Chrissy Frazier Hematocrit (Bld) [Volume fraction] 43.2 % Normal 42.0-54.0 [facility] Comment on above: Performed By: #### C BC ####[facility] Zotyqouvej9819 [place] [address]DrNancy Chrissy Freddie Hemoglobin (Bld) [Mass/Vol] 14.6 g/dL Normal 14.0-18.0 [facility] Comment on above: Performed By: #### C BC ####[facility] Xdkngcajka608[address] [place], [place] [address]DrNancy Frazier IG # 0.11 10e3/ul Critically high 0.00-0.03 [facility] Comment on above: Performed By: #### C BC ####[facility] Sdrihyncyu28[address] [place], [place] [address]DrNancy Frazier IG % 0.8 % Critically high 0.0-0.5 [facility] Comment on above: Performed By: #### C BC ####[facility] Omubiqwbhb[address] [place], [place] [address]DrNancy Frazier LYMPH # 2.6 103/ul Normal 1.2-3.8 [facility] Comment on above: Performed By: #### C BC ####[facility] Iecvfkncgj0138[address] [place], [place] [address]DrNancy Frazier Lymphocytes/100 WBC (Bld) 18.3 % Critically low 20.5-60.0 [facility] Comment on above: Performed By: #### C BC ####[facility] Dqtmxnhbbx[address] [place], [place] [address]DrNancy Frazier MANUAL DIFF REQ NO Normal [facility] Comment on above: Performed By: #### C BC ####[facility] Lxorflmpxf[address] [place], [place] [address]DrNancy Frazier MCH (RBC) [Entitic mass] 28.1 pg Normal 25.9-34.0 [facility] Comment on above: Performed By: #### C BC ####[facility] Foljynhuut[address] [place], [place] [address]DrNancy Frazier MCHC (RBC) [Mass/Vol] 33.8 g/dL Normal 29.9-35.2 [facility] Comment on above: Performed By: #### C BC ####[facility] Zctfauyqny2894 [place] [address]Dr. Chrissy Frazier MCV (RBC) [Entitic vol] 83.2 fL Normal 80.0-94.0 [facility] Comment on above: Performed By: #### C BC ####[facility] Ykuhbtnxsc99[address] [place], [place] [address]Dr. Chrissy Frazier MONO # 0.7 103/ul Normal 0.3-0.8 [facility] Comment on above: Performed By: #### C BC ####[facility] Qiofonjowi8739[address] [place], [place] [address]Dr. Chrissy Frazier Monocytes/100 WBC (Bld) 5.3 % Normal 1.7-12.0 [facility] Comment on above: Performed By: #### C BC ####[facility] Laizizfwfm47[address] [place], [place] [address]Dr. Chrissy Frazier NEUT # 10.5 103/ul Critically high 1.4-6.5 [facility] Comment on above: Performed By: #### C BC ####[facility] Thkdrfxjdq[address] [place], [place] [address]Dr. Chrissy Fraizer Neutrophils/100 WBC (Bld) 75.1 % Critically high 43.0-75.0 [facility] Comment on above: Performed By: #### C BC ####[facility] Sdqhlekzpn124[address] [place], [place] [address]Dr. Chrissy Frazier Platelet mean volume (Bld) [Entitic vol] 10.6 fL Normal 9.5-13.5 [facility] Comment on above: Performed By: #### C BC ####[facility] Fntstsjgwo20[address] [place], [place] [address]Dr. Chrissy Frazier PLT 309 103/ul Normal 150-450 [facility] Comment on above: Performed By: #### C BC ####[facility] Zprgtgfxei18[address] [place], [place] [address]Dr. Chrissy Frazier RBC 5.19 106/ul Normal 4.70-6.10 [facility] Comment on above: Performed By: #### C BC ####[facility] Jvhbxqjuik9660 [place] [id number]. Chrissy Frazier WBC 14.0 103/ul Critically high 4.0-11.0 [facility] Comment on above: Performed By: #### C BC ####[facility] Farotrdcup[address] [place], [place] [address]DrNancy Frazier PROF 14(COMP METB)on 022 Albumin [Mass/Vol] 4.0 g/dL Normal 3.4-5.0 [facility] Comment on above: Performed By: #### C MP ####[facility] Hrpubwjqvk[address] [place], [place] [address]DrNancy Frazier Albumin/Globulin [Mass ratio] 1.1 {ratio} Normal [facility] Comment on above: Performed By: #### C MP ####[facility] Ikwnuirrdn38[address] [place], [place] [address]Dr. Chrissy Frazier ALP [Catalytic activity/Vol] 67 U/L Normal 46-116 [facility] Comment on above: Performed By: #### C MP ####[facility] Dzrxcwoedm01[address] [place], [place] [address]DrNancy Frazier ALT [Catalytic activity/Vol] 40 U/L Normal 16-63 [facility] Comment on above: Performed By: #### C MP ####[facility] Suxjaxdyud4[address] [place], [place] [address]DrNancy Frazier Anion gap [Moles/Vol] 17.7 mmol/L Normal [facility] Comment on above: Performed By: #### C MP ####[facility] Zoicktglut[address] [place], [place] [address]DrNancy Frazier AST [Catalytic activity/Vol] 27 U/L Normal 15-37 [facility] Comment on above: Performed By: #### C MP ####[facility] Xhlssjsmlk140[address] [place], [place] [address]DrNancy Frazier Bilirubin [Mass/Vol] 0.8 mg/dL Normal 0.2-1.0 [facility] Comment on above: Performed By: #### C MP ####[facility] Yjodijjbxw6233 [place] [address]Dr. Tishrowan Freddie Calcium [Mass/Vol] 8.8 mg/dL Normal 8.5-10.1 [facility] Comment on above: Performed By: #### C MP ####[facility] Lejhvcpbcy[address] [place], [place] [address]Dr. Chrissy Frazier Chloride [Moles/Vol] 105 mmol/L Normal 98-107 [facility] Comment on above: Performed By: #### C MP ####[facility] Zphatfuuta74[address] [place], [place] [address]Dr. Tishrowan Freddie CO2 [Moles/Vol] 16.5 mmol/L Critically low 21.0-32.0 [facility] Comment on above: Performed By: #### C MP ####[facility] Vfbwhkcesf467[address] [place], [place] [address]Dr. Chrissy Frazier Creatinine [Mass/Vol] 1.02 mg/dL Normal 0.70-1.30 [facility] Comment on above: Performed By: #### C MP ####[facility] Xuxsmajvok87[address] [place], [place] [address]Dr. Tishrowan Freddie EGFR-AF ESTONIAN >60 Normal >=60 [facility] Comment on above: Performed By: #### C MP ####[facility] Mbikspmarz3770 [place] [address]Dr. Chrissy Frazier EGFR-NON AF ESTONIAN >60 Normal >=60 [facility] Comment on above: Performed By: #### C MP ####[facility] Zvruoxmljj9933 [place] [address]Dr. Chrissy Frazier Globulin (S) [Mass/Vol] 3.7 g/dL Normal [facility] Comment on above: Performed By: #### C MP ####[facility] Qgqexeivgc937[address] [place], [place] [address]Dr. Chrissy Frazier Glucose [Mass/Vol] 106 mg/dL Normal 74-106 [facility] Comment on above: Performed By: #### C MP ####[facility] Thqoizeemb8076 [place] [address]Dr. Chrissy Frazier Potassium [Moles/Vol] 3.2 mmol/L Critically low 3.5-5.1 [facility] Comment on above: Performed By: #### C MP ####[facility] Fyyhodsodm9386 [place] [address]Dr. Chrissy Freddie Protein [Mass/Vol] 7.7 g/dL Normal 6.4-8.2 [facility] Comment on above: Performed By: #### C MP ####[facility] Hdskgyaixn639[address] [place], [place] [address]Dr. Chrissy Freddie Sodium [Moles/Vol] 136 mmol/L Normal 136-145 [facility] Comment on above: Performed By: #### C MP ####[facility] Nrxfbdqcsx1687[address] [place], [place] [address]Dr. Chrissy Freddie Urea nitrogen [Mass/Vol] 10.0 mg/dL Normal 7.0-18.0 [facility] Comment on above: Performed By: #### C MP ####[facility] Rmwdpwyjec156[address] [place], [place] [address]Dr. Chrissy Freddie Urea nitrogen/Creatinine [Mass ratio] 9.8 mg/mg Normal [facility] Comment on above: Performed By: #### C MP ####[facility] Xcnmlouiec5368[address] [place], [place] [address]Dr. Chrissy Freddie CBC AUTO DIFFon 07-03-2022 BASO # 0.1 103/ul Normal 0.0-0.1 [facility] Comment on above: Performed By: #### C BC ####[facility] Kwomjkpnxv4655[address] [place], [place] [address]Dr. Tishrowan Frazier Basophils/100 WBC (Bld) 0.5 % Normal 0.2-2.0 [facility] Comment on above: Performed By: #### C BC ####[facility] Ioxuodblnl9229[address] [place], [place] [address]Dr. Chrissy Frazire EO # 0.1 103/ul Normal 0.0-0.7 [facility] Comment on above: Performed By: #### C BC ####[facility] Zrkfexxhwq4627 [place] [address]Dr. Chrissy Frazier Eosinophils/100 WBC (Bld) 1.3 % Normal 0.9-7.0 [facility] Comment on above: Performed By: #### C BC ####[facility] Agvanwlvnk5147 [place] [address]Dr. Chrissy Frazier Erythrocyte distribution width (RBC) [Ratio] 14.2 % Normal 11.0-15.0 [facility] Comment on above: Performed By: #### C BC ####[facility] Qoolkpugfx4216[address] [place], [place] [address]Dr. Chrissy Frazier Hematocrit (Bld) [Volume fraction] 41.7 % Critically low 42.0-54.0 [facility] Comment on above: Performed By: #### C BC ####[facility] Bapiaryqsk8677[address] [place], [place] [address]Dr. Chrissy Frazier Hemoglobin (Bld) [Mass/Vol] 13.6 g/dL Critically low 14.0-18.0 [facility] Comment on above: Performed By: #### C BC ####[facility] Emffvjczhe888[address] [place], [place] [address]Dr. Chrissy Frazier IG # 0.04 10e3/ul Critically high 0.00-0.03 [facility] Comment on above: Performed By: #### C BC ####[facility] Iaeruxwlxu1399[address] [place], [place] [address]Dr. Chrissy Frazier IG % 0.4 % Normal 0.0-0.5 [facility] Comment on above: Performed By: #### C BC ####[facility] Ilawzyaaia175[address] [place], [place] [address]Dr. Chrissy Frazier LYMPH # 3.5 103/ul Normal 1.2-3.8 [facility] Comment on above: Performed By: #### C BC ####[facility] Plsmxbtlyu6099[address] [place], [place] [address]Dr. Chrissy Frazier Lymphocytes/100 WBC (Bld) 33.5 % Normal 20.5-60.0 [facility] Comment on above: Performed By: #### C BC ####[facility] Omeswlbmtt8016 [place] [address]DrNancy Frazier MANUAL DIFF REQ NO Normal [facility] Comment on above: Performed By: #### C BC ####[facility] Yirnnlqvwc3227 [place] [address]DrNancy Frazier MCH (RBC) [Entitic mass] 27.9 pg Normal 25.9-34.0 [facility] Comment on above: Performed By: #### C BC ####[facility] Ffpexjfdnn4097[address] [place], [place] [address]DrNancy Frazier MCHC (RBC) [Mass/Vol] 32.6 g/dL Normal 29.9-35.2 [facility] Comment on above: Performed By: #### C BC ####[facility] Vjeyfarxwn9748[address] [place], [place] [address]DrNancy Frazier MCV (RBC) [Entitic vol] 85.6 fL Normal 80.0-94.0 [facility] Comment on above: Performed By: #### C BC ####[facility] Objsabcbhv0579[address] [place], [place] [address]DrNancy Frazier MONO # 0.7 103/ul Normal 0.3-0.8 [facility] Comment on above: Performed By: #### C BC ####[facility] Cmjtslpynq5638[address] [place], [place] [address]DrNancy Frazier Monocytes/100 WBC (Bld) 6.5 % Normal 1.7-12.0 [facility] Comment on above: Performed By: #### C BC ####[facility] Ixnizvwysc317[address] [place], [place] [address]DrNancy Frazier NEUT # 6.1 103/ul Normal 1.4-6.5 [facility] Comment on above: Performed By: #### C BC ####[facility] Zysxikuzgd2633[address] [place], [place] [address]DrNancy Frazier Neutrophils/100 WBC (Bld) 57.8 % Normal 43.0-75.0 [facility] Comment on above: Performed By: #### C BC ####[facility] Onrwuvtahm0565 [place] [address]DrNancy Frazier Platelet mean volume (Bld) [Entitic vol] 10.4 fL Normal 9.5-13.5 [facility] Comment on above: Performed By: #### C BC ####[facility] Tqljkjhzcw9590 [place] [address]DrNancy Frazier PLT 288 103/ul Normal 150-450 [facility] Comment on above: Performed By: #### C BC ####[facility] Gzmxqqhmrx1975[address] [place], [place] [address]Dr. Chrissy Frazier RBC 4.87 106/ul Normal 4.70-6.10 [facility] Comment on above: Performed By: #### C BC ####[facility] Ergwqzdune48[address] [place], [place] [address]DrNancy Frazier WBC 10.5 103/ul Normal 4.0-11.0 [facility] Comment on above: Performed By: #### C BC ####[facility] Fnueakftde03[address] [place], [place] [address]DrNancy Frazeir PROF 14(COMP METB)on 022 Albumin [Mass/Vol] 3.6 g/dL Normal 3.4-5.0 [facility] Comment on above: Performed By: #### C MP ####[facility] Mfsuyviwvm[address] [place], [place] [address]DrNancy Frazier Albumin/Globulin [Mass ratio] 1.1 {ratio} Normal [facility] Comment on above: Performed By: #### C MP ####[facility] Lumtidnrwa4410 [place] [address]DrNancy Frazier ALP [Catalytic activity/Vol] 58 U/L Normal 46-116 [facility] Comment on above: Performed By: #### C MP ####[facility] Ycpgjfcnmv6675[address] [place], [place] [address]DrNancy Frazier ALT [Catalytic activity/Vol] 30 U/L Normal 16-63 [facility] Comment on above: Performed By: #### C MP ####[facility] Zxnfebewvv6129 [place] [id number]. Chrissy Frazier Anion gap [Moles/Vol] 14.5 mmol/L Normal [facility] Comment on above: Performed By: #### C MP ####[facility] Polmloyyrk3571 [place] [phone]. Chrissy Frazier AST [Catalytic activity/Vol] 17 U/L Normal 15-37 [facility] Comment on above: Performed By: #### C MP ####[facility] Hwshmuyfbt7998 [place] [id number]. Chrissy Freddie Bilirubin [Mass/Vol] 0.6 mg/dL Normal 0.2-1.0 [facility] Comment on above: Performed By: #### C MP ####[facility] Xkzqpadpxz9417 [place] [address]Dr. Tishrowan Freddie Calcium [Mass/Vol] 8.4 mg/dL Critically low 8.5-10.1 [facility] Comment on above: Performed By: #### C MP ####[facility] Dewxlhrshq0464 [place] [address]Dr. Chrissy Freddie Chloride [Moles/Vol] 106 mmol/L Normal 98-107 [facility] Comment on above: Performed By: #### C MP ####[facility] Uqfrloakqm9443 [place] [phone]. Tishrowan Freddie CO2 [Moles/Vol] 22.6 mmol/L Normal 21.0-32.0 [facility] Comment on above: Performed By: #### C MP ####[facility] Bqfdbbjhgs5563 [place] [phone]. Chrissy Freddie Creatinine [Mass/Vol] 1.08 mg/dL Normal 0.70-1.30 [facility] Comment on above: Performed By: #### C MP ####[facility] Tpkguqcmsn4120 [place] [id number]. Chrissy Freddie EGFR-AF ESTONIAN >60 Normal >=60 [facility] Comment on above: Performed By: #### C MP ####[facility] Zsmwnpiamx1243 [place] [phone]. Chrissy Frazier EGFR-NON AF ESTONIAN >60 Normal >=60 [facility] Comment on above: Performed By: #### C MP ####[facility] Hbhweemcvj3710 [place] [phone]. Chrissy Frazier Globulin (S) [Mass/Vol] 3.3 g/dL Normal [facility] Comment on above: Performed By: #### C MP ####[facility] Ujiefbvfrq9493 [place] [address]Dr. Chrissy Frazier Glucose [Mass/Vol] 94 mg/dL Normal 74-106 [facility] Comment on above: Performed By: #### C MP ####[facility] Gnnektwxjv8653 [place] [address]Dr. Chrissy Frazier Potassium [Moles/Vol] 3.1 mmol/L Critically low 3.5-5.1 [facility] Comment on above: Performed By: #### C MP ####[facility] Fkqackfbnb69[address] [place], [place] [address]Dr. Chrissy Frazier Protein [Mass/Vol] 6.9 g/dL Normal 6.4-8.2 [facility] Comment on above: Performed By: #### C MP ####[facility] Vxgazcklpx1811[address] [place], [place] [address]Dr. Chrissy Frazier Sodium [Moles/Vol] 140 mmol/L Normal 136-145 [facility] Comment on above: Performed By: #### C MP ####[facility] Qezqjvkzno0107[address] [place], [place] [address]Dr. Chrissy Frazier Urea nitrogen [Mass/Vol] 10.0 mg/dL Normal 7.0-18.0 [facility] Comment on above: Performed By: #### C MP ####[facility] Lygqqizpeq272[address] [place], [place] [address]Dr. Chrissy Frazier Urea nitrogen/Creatinine [Mass ratio] 9.3 mg/mg Normal [facility] Comment on above: Performed By: #### C MP ####[facility] Vwsbktnedz9597 [place] [phone]. Chrissy Freddie CBC AUTO DIFFon 07-02-2022 BASO # 0.0 103/ul Normal 0.0-0.1 [facility] Comment on above: Performed By: #### C BC ####[facility] Ifwqeixxen6200 [place] [phone]. Tishrowan Frazier Basophils/100 WBC (Bld) 0.2 % Normal 0.2-2.0 [facility] Comment on above: Performed By: #### C BC ####[facility] Grgqxtitlv020[address] [place], [place] [address]Dr. Chrissy Freddie EO # 0.0 103/ul Normal 0.0-0.7 [facility] Comment on above: Performed By: #### C BC ####[facility] Ggtsjezfhx5424[address] [place], [place] [address]Dr. Tishrowan Frazier Eosinophils/100 WBC (Bld) 0.0 % Critically low 0.9-7.0 [facility] Comment on above: Performed By: #### C BC ####[facility] Ffbsqmbedt040[address] [place], [place] [address]Dr. Chrissy Freddie Erythrocyte distribution width (RBC) [Ratio] 14.2 % Normal 11.0-15.0 [facility] Comment on above: Performed By: #### C BC ####[facility] Rccxkzttza430[address] [place], [place] [address]Dr. Tishrowan Frazier Hematocrit (Bld) [Volume fraction] 46.2 % Normal 42.0-54.0 [facility] Comment on above: Performed By: #### C BC ####[facility] Hhqfcnwbvv364[address] [place], [place] [address]Dr. Tishrowan Frazier Hemoglobin (Bld) [Mass/Vol] 15.2 g/dL Normal 14.0-18.0 [facility] Comment on above: Performed By: #### C BC ####[facility] Tqwytjywts[address] [place], [place] [address]Dr. Chrissy Frazier IG # 0.07 10e3/ul Critically high 0.00-0.03 [facility] Comment on above: Performed By: #### C BC ####[facility] Bnljyhnmgp6869 [place] [address]Dr. Chrissy Frazier IG % 0.4 % Normal 0.0-0.5 [facility] Comment on above: Performed By: #### C BC ####[facility] Pwsngzuphk1630 [place] [phone] Frazier LYMPH # 2.8 103/ul Normal 1.2-3.8 [facility] Comment on above: Performed By: #### C BC ####[facility] Cubhpowfgx2282 [place] [phone] Frazier Lymphocytes/100 WBC (Bld) 16.7 % Critically low 20.5-60.0 [facility] Comment on above: Performed By: #### C BC ####[facility] Kjiiaaagzg8449 [place] [address]DrNancy Frazier MANUAL DIFF REQ NO Normal [facility] Comment on above: Performed By: #### C BC ####[facility] Adghrzvunj9180 [place] [phone]. Chrissy Frazier MCH (RBC) [Entitic mass] 28.3 pg Normal 25.9-34.0 [facility] Comment on above: Performed By: #### C BC ####[facility] Tfmzhjdadf9313 [place] [phone] Frazier MCHC (RBC) [Mass/Vol] 32.9 g/dL Normal 29.9-35.2 [facility] Comment on above: Performed By: #### C BC ####[facility] Jalcjwcbkn0976 [place] [phone] Frazier MCV (RBC) [Entitic vol] 86.0 fL Normal 80.0-94.0 [facility] Comment on above: Performed By: #### C BC ####[facility] Ljigugarim5615 [place] [phone] Frazier MONO # 0.9 103/ul Critically high 0.3-0.8 [facility] Comment on above: Performed By: #### C BC ####[facility] Mpvycdoiau0781 [place] [phone]. Chrissy Frazier Monocytes/100 WBC (Bld) 5.1 % Normal 1.7-12.0 [facility] Comment on above: Performed By: #### C BC ####[facility] Qxsngzoghc4455 [place] [phone]. Chrissy Frazier NEUT # 13.2 103/ul Critically high 1.4-6.5 [facility] Comment on above: Performed By: #### C BC ####[facility] Bvbkldnosa3514 [place] [phone]. Chrissy Frazier Neutrophils/100 WBC (Bld) 77.6 % Critically high 43.0-75.0 [facility] Comment on above: Performed By: #### C BC ####[facility] Yjknirsxvz2599 [place] [phone]. Chrissy Frazier Platelet mean volume (Bld) [Entitic vol] 11.6 fL Normal 9.5-13.5 [facility] Comment on above: Performed By: #### C BC ####[facility] Ndjgmvjesk4101 [place] [phone]. Chrissy Frazier PLT 317 103/ul Normal 150-450 [facility] Comment on above: Performed By: #### C BC ####[facility] Tomvnjlydo2445 [place] [phone]. Chrissy Frazier RBC 5.37 106/ul Normal 4.70-6.10 [facility] Comment on above: Performed By: #### C BC ####[facility] Syarcmhrou7335 [place] [phone]. Chrissy Frazier WBC 17.1 103/ul Critically high 4.0-11.0 [facility] Comment on above: Performed By: #### C BC ####[facility] Jqdgpychwx7569 [place] [phone]. Chrissy Frazier CT ABD/PELV W CONon 07-02-[address] ABD/PELV W CON Normal [facility] H PYLORI ANTIBODY IGGon 06-21 H. PYLORI IGG ABS 0.13 Index Value Normal 0.00-0.79 [facility] Comment on above: Result Comment: Nega tive <0.80 Equivocal 0.80 - 0.89 Positive >0.89 Performed By: #### H PYLLC ####[facility] Owjqbiqgkz3922 [place] [address]Dr. Chrissy Frazier PROF 14(COMP METB)on 022 Albumin [Mass/Vol] 3.8 g/dL Normal 3.4-5.0 [facility] Comment on above: Performed By: #### C MP ####[facility] Eqvdmaefex96[address] [place], [place] [address]Dr. Chrissy Frazier Albumin/Globulin [Mass ratio] 1.0 {ratio} Normal [facility] Comment on above: Performed By: #### C MP ####[facility] Choauisxsr399[address] [place], [place] [address]Dr. Chrissy Frazier ALP [Catalytic activity/Vol] 68 U/L Normal 46-116 [facility] Comment on above: Performed By: #### C MP ####[facility] Ejwacxdozd[address] [place], [place] [address]Dr. Chrissy Frazier ALT [Catalytic activity/Vol] 34 U/L Normal 16-63 [facility] Comment on above: Performed By: #### C MP ####[facility] Bunelvnwji[address] [place], [place] [address]Dr. Chrissy Frazier Anion gap [Moles/Vol] 17.9 mmol/L Normal [facility] Comment on above: Performed By: #### C MP ####[facility] Foycnmaijw450[address] [place], [place] [address]Dr. Chrissy Frazier AST [Catalytic activity/Vol] 24 U/L Normal 15-37 [facility] Comment on above: Performed By: #### C MP ####[facility] Zczsomfrpg7497[address] [place], [place] [address]Dr. Chrissy Frazier Bilirubin [Mass/Vol] 0.6 mg/dL Normal 0.2-1.0 [facility] Comment on above: Performed By: #### C MP ####[facility] Ucefxpthjn8719 [place] [address]Dr. Chrissy Frazier Calcium [Mass/Vol] 8.8 mg/dL Normal 8.5-10.1 [facility] Comment on above: Performed By: #### C MP ####[facility] Jizyftmajk4696 [place] [address]Dr. Chrissy Frazier Chloride [Moles/Vol] 105 mmol/L Normal 98-107 [facility] Comment on above: Performed By: #### C MP ####[facility] Bzmddnujto2855 [place] [address]Dr. Chrissy Frazier CO2 [Moles/Vol] 18.8 mmol/L Critically low 21.0-32.0 [facility] Comment on above: Performed By: #### C MP ####[facility] Vqmkyrqcaj082[address] [place], [place] [address]Dr. Chrissy Frazier Creatinine [Mass/Vol] 1.15 mg/dL Normal 0.70-1.30 [facility] Comment on above: Performed By: #### C MP ####[facility] Cgovnplaui4080[address] [place], [place] [address]Dr. Chrissy Frazier EGFR-AF ESTONIAN >60 Normal >=60 [facility] Comment on above: Performed By: #### C MP ####[facility] Ztcefjgruh94[address] [place], [place] [address]Dr. Chrissy Frazier EGFR-NON AF ESTONIAN >60 Normal >=60 [facility] Comment on above: Performed By: #### C MP ####[facility] Oexkplbzuk1982 [place] [address]Dr. Chrissy Frazier Globulin (S) [Mass/Vol] 3.9 g/dL Normal [facility] Comment on above: Performed By: #### C MP ####[facility] Xnjejfpups1065 [place] [address]Dr. Chrissy Frazier Glucose [Mass/Vol] 124 mg/dL Critically high 74-106 [facility] Comment on above: Performed By: #### C MP ####[facility] Fhiaodfkbb1675 [place] [address]Dr. Chrissy Frazier Potassium [Moles/Vol] 3.7 mmol/L Normal 3.5-5.1 [facility] Comment on above: Performed By: #### C MP ####[facility] Hxnphndptr2030 [place] [address]Dr. Chrissy Frazier Protein [Mass/Vol] 7.7 g/dL Normal 6.4-8.2 [facility] Comment on above: Performed By: #### C MP ####[facility] Mdeopcsafc7[address] [place], [place] [address]Dr. Chrissy Frazier Sodium [Moles/Vol] 138 mmol/L Normal 136-145 [facility] Comment on above: Performed By: #### C MP ####[facility] Naapjnyerg34[address] [place], [place] [address]Dr. Chrissy Frazier Urea nitrogen [Mass/Vol] 9.0 mg/dL Normal 7.0-18.0 [facility] Comment on above: Performed By: #### C MP ####[facility] Ljypkwjxdf87[address] [place], [place] [address]Dr. Chrissy Frazier Urea nitrogen/Creatinine [Mass ratio] 7.8 mg/mg Normal [facility] Comment on above: Performed By: #### C MP ####[facility] Lqkmsedind[address] [place], [place] [address]Dr. Chrissy Frazier AMMONIAon 07-01-2022 Ammonia (P) [Moles/Vol] 14 umol/L Normal 11-32 [facility] Comment on above: Performed By: #### A MM ####[facility] Ouxuecggpx20[address] [place], [place] [address]Dr. Chrissy Frazier AMYLASEon 07-01-2022 Amylase [Catalytic activity/Vol] 32 U/L Normal 25-115 [facility] Comment on above: Performed By: #### A MY, PHOS, CMP, LIPA ####[facility] Ipplxowdqo4658 [place] [address]Dr. Chrissy Frazier CBC AUTO DIFFon 07-01-2022 BASO # 0.1 103/ul Normal 0.0-0.1 [facility] Comment on above: Performed By: #### C BC ####[facility] Pilfzckwsv4487 [place] [address]Dr. Chrissy Frazire Basophils/100 WBC (Bld) 0.4 % Normal 0.2-2.0 [facility] Comment on above: Performed By: #### C BC ####[facility] Acqurfklun45[address] [place], [place] [address]Dr. Chrissy Freddie EO # 0.2 103/ul Normal 0.0-0.7 [facility] Comment on above: Performed By: #### C BC ####[facility] Dqopwdsitx735[address] [place], [place] [address]Dr. Chrissy Frazier Eosinophils/100 WBC (Bld) 0.9 % Normal 0.9-7.0 [facility] Comment on above: Performed By: #### C BC ####[facility] Tsewyccwtb9[address] [place], [place] [address]Dr. Chrissy Frazier Erythrocyte distribution width (RBC) [Ratio] 13.8 % Normal 11.0-15.0 [facility] Comment on above: Performed By: #### C BC ####[facility] Tdbttejdfv8050[address] [place], [place] [address]Dr. Chrissy Frazier Hematocrit (Bld) [Volume fraction] 46.3 % Normal 42.0-54.0 [facility] Comment on above: Performed By: #### C BC ####[facility] Kpfwqlxhan064[address] [place], [place] [address]Dr. Chrissy Frazier Hemoglobin (Bld) [Mass/Vol] 15.4 g/dL Normal 14.0-18.0 [facility] Comment on above: Performed By: #### C BC ####[facility] Zwsnxbbyod067[address] [place], [place] [address]Dr. Chrissy Freddie IG # 0.05 10e3/ul Critically high 0.00-0.03 [facility] Comment on above: Performed By: #### C BC ####[facility] Fhndtjgzmh044[address] [place], [place] [address]Dr. Chrissy Frazier IG % 0.3 % Normal 0.0-0.5 [facility] Comment on above: Performed By: #### C BC ####[facility] Xcemnqvtzq1419 [place] [address]Dr. Tishrowan Frazier LYMPH # 2.0 103/ul Normal 1.2-3.8 [facility] Comment on above: Performed By: #### C BC ####[facility] Ncjjzajhab7330 [place] [address]Dr. Tishrowan Frazier Lymphocytes/100 WBC (Bld) 12.9 % Critically low 20.5-60.0 [facility] Comment on above: Performed By: #### C BC ####[facility] Nwcfmwgbil38[address] [place], [place] [address]Dr. Chrissy Frazier MANUAL DIFF REQ NO Normal [facility] Comment on above: Performed By: #### C BC ####[facility] Bbyespgagl[address] [place], [place] [address]Dr. Tishrowan Frazier MCH (RBC) [Entitic mass] 28.6 pg Normal 25.9-34.0 [facility] Comment on above: Performed By: #### C BC ####[facility] Zqmdulcykq8[address] [place], [place] [address]Dr. Chrissy Freddie MCHC (RBC) [Mass/Vol] 33.3 g/dL Normal 29.9-35.2 [facility] Comment on above: Performed By: #### C BC ####[facility] Ytekplwikv[address] [place], [place] [address]Dr. Chrissy Frazier MCV (RBC) [Entitic vol] 86.1 fL Normal 80.0-94.0 [facility] Comment on above: Performed By: #### C BC ####[facility] Tlcqrbzznk[address] [place], [place] [address]Dr. Chrissy Frazier MONO # 0.5 103/ul Normal 0.3-0.8 [facility] Comment on above: Performed By: #### C BC ####[facility] Awbbwjtjaa[address] [place], [place] [address]Dr. Chrissy Frazier Monocytes/100 WBC (Bld) 3.0 % Normal 1.7-12.0 [facility] Comment on above: Performed By: #### C BC ####[facility] [address]nvndklo[address] [place] [address]Dr. Chrissy Frazier NEUT # 13.0 103/ul Critically high 1.4-6.5 [facility] Comment on above: Performed By: #### C BC ####[facility] Gtccbpxzqr1046 [place] [address]Dr. Chrissy Frazier Neutrophils/100 WBC (Bld) 82.5 % Critically high 43.0-75.0 [facility] Comment on above: Performed By: #### C BC ####[facility] Vorubjxikk[address] [place], [place] [address]Dr. Chrissy Frazier Platelet mean volume (Bld) [Entitic vol] 10.0 fL Normal 9.5-13.5 [facility] Comment on above: Performed By: #### C BC ####[facility] Eshoapcnjl[address] [place], [place] [address]Dr. Chrissy Frazier PLT 370 103/ul Normal 150-450 [facility] Comment on above: Performed By: #### C BC ####[facility] Pmedhpkniz[address] [place], [place] [address]Dr. Chrissy Frazier RBC 5.38 106/ul Normal 4.70-6.10 [facility] Comment on above: Performed By: #### C BC ####[facility] Znetippqvu23[address] [place], [place] [address]Dr. Chrissy Frazier WBC 15.8 103/ul Critically high 4.0-11.0 [facility] Comment on above: Performed By: #### C BC ####[facility] Qdrnvvprsc[address] [place], [place] [address]Dr. Chrissy Freddie CULTURE URINEon 07-01-2022 CULTURE URINE Culture Observations: No growth Normal [facility] Comment on above: Performed By: #### U RCX ####[facility] Yplybectjq[address] [place], [place] [address]Dr. Chrissy Freddie Covid-19 PCR ([facility])on 06-21 SARS-CoV-2 (COVID-19) RNA RHIANNON+probe Ql (Unsp spec) Not detected Normal NOT DETECTED [facility] Comment on above: Result Comment: When [...] for this test is supported by the [employer] Teacher of Health and Human Service's declaration that [...] be used). Performed By: #### C VDTBH ####[facility] Wtmujrqrjr024[address] [place] [address]Dr. Chrissy Frazier DRUG SCREEN RAPID (URINE)on 07-01-2022 AMP Negative Normal NEGATIVE [facility] Comment on above: Performed By: #### D REYES UAMIC ####[facility] Laiejkwwpc75[address] [place] [address]Dr. Chrissy Frazier BAR Negative Normal NEGATIVE [facility] Comment on above: Performed By: #### D REYES UAMIC ####[facility] Xmfqkjgwgd75[address] [place] [id number]. Chrissy Frazier BUP Negative Normal NEGATIVE [facility] Comment on above: Performed By: #### D REYES UAMIC ####[facility] Wvhybsfvkx8122 [place] [address]Dr. Chrissy Frazier BZO Negative Normal NEGATIVE [facility] Comment on above: Performed By: #### D REYES UAMIC ####[facility] Vjtnmoiybv1538 [place] [id number]. Chrissy Frazier LAUREN Negative Normal NEGATIVE [facility] Comment on above: Performed By: #### Amelie CHAMBERS UAMIC ####[facility] Ksgkowwolc[address] [place], [place] [address]Dr. Chrissy Frazier CUT-OFFS SEE BELOW Normal [facility] Comment on above: Result Comment: AMP [...] ng/mL Performed By: #### Amelie CHAMBERS UAMIC ####[facility] Gdmqwcjauu[address] [place], [place] [address]Dr. Chrissy Frazier DRUG CUT HEADER DRUG CLASS TEST SYSTEM CUT-OFF CONCENTRATIONS ARE FOLLOWS: Normal [facility] Comment on above: Performed By: #### Amelie CHAMBERS UAMIC ####[facility] Gbzruiqymx[address] [place], [place] [address]Dr. Chrissy Frazier mAMP Negative Normal NEGATIVE [facility] Comment on above: Performed By: #### Amelie CHAMBERS UAMIC ####[facility] Mjfylzjnna[address] [place], [place] [address]Dr. Chrissy Frazier MTD Negative Normal NEGATIVE [facility] Comment on above: Performed By: #### Amelie CHAMBERS UAMIC ####[facility] Lojqlelqci[address] [place], [place] [address]Dr. Chrissy Frazier OPI Negative Normal NEGATIVE [facility] Comment on above: Performed By: #### Amelie CHAMBERS UAMIC ####[facility] Tokibcjbsr82[address] [place], [place] [address]Dr. Chrissy Frazier OXY Negative Normal NEGATIVE [facility] Comment on above: Performed By: #### Amelie CHAMBERS UAMIC ####[facility] Hcmtfzixxl8646 [place] [address]Dr. Chrissy Frazier PCP Negative Normal NEGATIVE [facility] Comment on above: Performed By: #### D REYES UAMIC ####[facility] Jtomqhmxyk[address] [place] [address]Dr. Chrissy Frazier PPX Negative Normal NEGATIVE [facility] Comment on above: Performed By: #### D REYES UAMIC ####[facility] Mlmabfrebs7880 [place] [address]Dr. Chrissy Frazier TCA Negative Normal NEGATIVE [facility] Comment on above: Performed By: #### D REYES UAMIC ####[facility] Mperuazqsr3642 [place] [address]Dr. Chrissy Freddie THC Positive Abnormal NEGATIVE [facility] Comment on above: Performed By: #### D REYES UAMIC ####[facility] Yyiolinqwy3264 [place] [address]Dr. Chrissy Freddie LACTATE/LACTIC ACIDon 2021 Lactate [Moles/Vol] 4.4 mmol/L Critically high 0.4-1.9 [facility] Comment on above: Performed By: #### L ACT ####[facility] Grdcdzdvdf460[address] [place], [place] [address]Dr. Chrissy Freddie LIPASEon 07-01-2022 Lipase [Catalytic activity/Vol] 57.0 U/L Critically low 73.0-393.0 [facility] Comment on above: Performed By: #### A MY, PHOS, CMP, LIPA ####[facility] Bfsseibfby3245 [place] [address]Dr. Chrissy Frazier PHOSPHORUSon 07-01-2022 Phosphate [Mass/Vol] 1.4 mg/dL Critically low 2.6-4.7 [facility] Comment on above: Performed By: #### A MY, PHOS, CMP, LIPA ####[facility] Bvjekzfhhe69[address] [place], [place] [address]Dr. Chrissy Frazier PROF 14(COMP METB)on 08-11-2 022 Albumin [Mass/Vol] 4.2 g/dL Normal 3.4-5.0 [facility] Comment on above: Performed By: #### A MY, PHOS, CMP, LIPA ####[facility] Lqrqmqcvfw8108 [place] [address]Dr. Chrissy Frazier Albumin/Globulin [Mass ratio] 1.1 {ratio} Normal [facility] Comment on above: Performed By: #### A MY, PHOS, CMP, LIPA ####[facility] Kwfrpwjljt[address] [place], [place] [address]Dr. Chrissy Frazier ALP [Catalytic activity/Vol] 73 U/L Normal 46-116 [facility] Comment on above: Performed By: #### A MY, PHOS, CMP, LIPA ####[facility] Wdgkcksozp[address] [place], [place] [address]Dr. Chrissy Frazier ALT [Catalytic activity/Vol] 43 U/L Normal 16-63 [facility] Comment on above: Performed By: #### A MY, PHOS, CMP, LIPA ####[facility] Wdxyukuznj33[address] [place], [place] [address]Dr. Chrissy Frazier Anion gap [Moles/Vol] 19.0 mmol/L Normal [facility] Comment on above: Performed By: #### A MY, PHOS, CMP, LIPA ####[facility] Hwarfvsssb4067[address] [place], [place] [address]Dr. Chrissy Frazier AST [Catalytic activity/Vol] 21 U/L Normal 15-37 [facility] Comment on above: Performed By: #### A MY, PHOS, CMP, LIPA ####[facility] Zedsxyofdi652[address] [place], [place] [address]Dr. Chrissy Frazier Bilirubin [Mass/Vol] 0.5 mg/dL Normal 0.2-1.0 [facility] Comment on above: Performed By: #### A MY, PHOS, CMP, LIPA ####[facility] Vgzrzxtbkq[address] [place], [place] [address]Dr. Chrissy Frazier Calcium [Mass/Vol] 9.3 mg/dL Normal 8.5-10.1 [facility] Comment on above: Performed By: #### A MY, PHOS, CMP, LIPA ####[facility] Zlykfyqtwv6504 [place] [address]Dr. Chrissy Frazier Chloride [Moles/Vol] 103 mmol/L Normal 98-107 [facility] Comment on above: Performed By: #### A MY, PHOS, CMP, LIPA ####[facility] Oywiqplwku9538 [place] [address]Dr. Chrissy Frazier CO2 [Moles/Vol] 21.1 mmol/L Normal 21.0-32.0 [facility] Comment on above: Performed By: #### A MY, PHOS, CMP, LIPA ####[facility] Gvmojxfmni48[address] [place], [place] [address]Dr. Chrissy Frazier Creatinine [Mass/Vol] 1.44 mg/dL Critically high 0.70-1.30 [facility] Comment on above: Performed By: #### A MY, PHOS, CMP, LIPA ####[facility] Rkodbfsfta05[address] [place], [place] [address]Dr. Chrissy Frazier EGFR-AF ESTONIAN >60 Normal >=60 [facility] Comment on above: Performed By: #### A MY, PHOS, CMP, LIPA ####[facility] Pggalmatvy6933 [place] [address]Dr. Chrissy Frazier EGFR-NON AF ESTONIAN 57 mL/min/1.73m2 Critically low >=60 [facility] Comment on above: Performed By: #### A MY, PHOS, CMP, LIPA ####[facility] Bzecgcsodu7139 [place] [address]Dr. Chrissy Frazier Globulin (S) [Mass/Vol] 3.9 g/dL Normal [facility] Comment on above: Performed By: #### A MY, PHOS, CMP, LIPA ####[facility] Rgdmwfseck9171 [place] [address]Dr. Chrissy Frazier Glucose [Mass/Vol] 148 mg/dL Critically high 74-106 [facility] Comment on above: Performed By: #### A MY, PHOS, CMP, LIPA ####[facility] Paxvpbugmw9936 [place] [address]Dr. Chrissy Frazier Potassium [Moles/Vol] 3.1 mmol/L Critically low 3.5-5.1 [facility] Comment on above: Performed By: #### A MY, PHOS, CMP, LIPA ####[facility] Gjqmqeixtk3737 [place] [address]Dr. Chrissy Frazier Protein [Mass/Vol] 8.1 g/dL Normal 6.4-8.2 [facility] Comment on above: Performed By: #### A MY, PHOS, CMP, LIPA ####[facility] Dejtbnuqri[address] [place] [address]Dr. Tishrowan Frazier Sodium [Moles/Vol] 140 mmol/L Normal 136-145 [facility] Comment on above: Performed By: #### A MY, PHOS, CMP, LIPA ####[facility] Nebwdzizgn[address] [place], [place] [address]Dr. Chrissy Freddie Urea nitrogen [Mass/Vol] 10.0 mg/dL Normal 7.0-18.0 [facility] Comment on above: Performed By: #### A MY, PHOS, CMP, LIPA ####[facility] Wmkzasustd235[address] [place], [place] [address]Dr. Chrissy Frazier Urea nitrogen/Creatinine [Mass ratio] 6.9 mg/mg Normal [facility] Comment on above: Performed By: #### A MY, PHOS, CMP, LIPA ####[facility] Nrdhimfqqx9020 [place] [address]Dr. Chrissy Frazier UA RANDOM W/MICROSCOPICon BACTERIA TRACE Abnormal NONE SEEN [facility] Comment on above: Performed By: #### D REYES UAMIC ####[facility] Huagxguraw[address] [place], [place] [address]Dr. Chrissy Frazier Bilirubin Ql (U) Negative Normal NEGATIVE [facility] Comment on above: Performed By: #### D REYES UAMIC ####[facility] Vzdcivilhl[address] [place], [place] [address]Dr. Chrissy Frazier CAST NONE SEEN Normal NONE SEEN [facility] Comment on above: Performed By: #### Amelie CHAMBERS, UAMIC ####[facility] Vzunrissua[address] [place], [place] [address]Dr. Chrissy Frazier Clarity (U) CLEAR Normal CLEAR [facility] Comment on above: Performed By: #### D CHAYAD, UAMIC ####[facility] Cpodkfxkeh[address] [place], [place] [address]Dr. Chrissy Frazier Color (U) YELLOW Normal YELLOW [facility] Comment on above: Performed By: #### D CHAYAD, UAMIC ####[facility] Hqnqmknbco[address] [place], [place] [address]Dr. Chrissy Freddie Crystals LM Nom (Urine sed) NONE SEEN Normal NONE SEEN [facility] Comment on above: Performed By: #### Amelie CHAMBERS, UAMIC ####[facility] Lvcthcjplr4[address] [place], [place] [address]Dr. Tishrowan Freddie Epithelial cells LM Ql (Urine sed) RARE Normal NONE SEEN /RARE [facility] Comment on above: Performed By: #### Amelie CHAMBERS, UAMIC ####[facility] Hibydihtjb75[address] [place], [place] [address]Dr. Chrissy Frazier Glucose Ql (U) Negative Normal NEGATIVE The [facility] Comment on above: Performed By: #### Amelie CHAMBERS, UAMIC ####[facility] Mvcmhcoqko9259[address] [place], [place] [address]Dr. Chrissy Frazier Hemoglobin Ql (U) Negative Normal NEGATIVE The [facility] Comment on above: Performed By: #### D CHAYAD, UAMIC ####[facility] Bzpgisoutb298[address] [place], [place] [address]Dr. Chrissy Frazier Ketones Ql (U) 40 mg/dl Abnormal NEGATIVE [facility] Comment on above: Performed By: #### Amelie LARKIND, UAMIC ####[facility] Bshilwngxu[address] [place], [place] [address]Dr. Chrissy Frazier LEUKOCYTES Negative Normal NEGATIVE [facility] Comment on above: Performed By: #### Amelie CHAMBERS, UAMIC ####[facility] Bjocgzhtdj3600 [place] [id number]. Chrissy Frazier MUCOUS MODERATE Abnormal NONE SEEN [facility] Comment on above: Performed By: #### Amelie CHAMBERS UAMIC ####[facility] Swjxllchvo7499 [place] [address]Dr. Tishrowan Frazier Nitrite Ql (U) Negative Normal NEGATIVE The [facility] Comment on above: Performed By: #### Amelie CHAMBERS UAMIC ####[facility] Wxiinepwxn4546 [place] [address]Dr. Chrissy Frazier pH (U) 6.0 [pH] Normal 5-9 [facility] Comment on above: Performed By: #### Amelie CHAMBERS UAMIC ####[facility] Zvkypgtfdf[address] [place], [place] [address]Dr. Tishrowan Frazier RBC 0-2 Normal 0-2 [facility] Comment on above: Performed By: #### Amelie CHAMBERS UAMIC ####[facility] Jrjrknlutj1496 [place] [address]Dr. Tishrowan Frazier SPEC GRAVITY 1.020 Normal 1.005-<=1.025 The [facility] Comment on above: Performed By: #### Amelie CHAMBERS UAMIC ####[facility] Ihjzghtgvd[address] [place], [place] [address]Dr. Chrissy Freddie UA PROTEIN Negative Normal NEGATIVE/ TRACE [facility] Comment on above: Performed By: #### Amelie CHAMBERS UAMIC ####[facility] Mpmqkxyjla2657 [place] [address]Dr. Tishrowan Frazier Urobilinogen Qn (U) 0.2 {Estrellita'U}/dL Normal 0.2 - 1. 0 [facility] Comment on above: Performed By: #### Amelie CHAMBERS UAMIC ####[facility] Nuohpamfgq6127 [place] [address]Dr. Chrissy Frazier WBC 0-2 Abnormal NONE SEEN [facility] Comment on above: Performed By: #### Amelie CHAMBERS UAMIC ####[facility] Yddvywineu8222 [place], [place] [address]Qh. Chrissy Frazier XR ABD FLAT UP_PA Enoch 07-01 XR ABD FLAT UP_PA CH Normal [facility] Covid-19 PCR ([facility])on SARS-CoV-2 (COVID-19) RNA RHIANNON+probe Ql (Unsp spec) Not detected Normal NOT DETECTED [facility] Comment on above: Result Comment: When [...] for this test is supported by the [employer] Teacher of Health and Human Service's declaration that [...] longer be used). Performed By: #### C [facility]DNEW [facility] ####[facility] Xbfhnqmtdk0474 [place], [place] [address]Yo. Chrissy Frazier SYMPTOMATIC COVID-19 ANTIGEN on 04-23-2022 EUA Statement SEE BELOW Normal [facility] Comment on above: Result Comment: This test [...] revoked sooner. Performed By: #### C VDAGS ####[facility] Cloaqzreib0954 [place] [address]Dr. Chrissy Frazier SARS-CoV-2 (COVID-19) RNA RHIANNON+probe Ql (Unsp spec) Negative Normal NEGATIVE [facility] Comment on above: Performed By: #### C VDAGS ####[facility] Mprjaypafd[address] [place], [place] [address]Dr. Chrissy Frazier AMYLASEon 04-04-2022 Amylase [Catalytic activity/Vol] 40 U/L Normal 25-115 [facility] Comment on above: Performed By: #### C MP, TERRENCE, LIPA ####[facility] Zzwgfxxmmz[address] [place], [place] [address]Dr. Chrissy Frazier CBC AUTO DIFFon 04-04-2022 BASO # 0.1 103/ul Normal 0.0-0.1 [facility] Comment on above: Performed By: #### C BC ####[facility] Vrfcnljmpc[address] [place], [place] [address]Dr. Chrissy Frazier Basophils/100 WBC (Bld) 0.4 % Normal 0.2-2.0 [facility] Comment on above: Performed By: #### C BC ####[facility] Wyfleljftq0[address] [place], [place] [address]Dr. Chrissy Frazier EO # 0.1 103/ul Normal 0.0-0.7 [facility] Comment on above: Performed By: #### C BC ####[facility] Ljukxwmfwa82[address] [place], [place] [address]Dr. Chrissy Frazier Eosinophils/100 WBC (Bld) 0.6 % Critically low 0.9-7.0 [facility] Comment on above: Performed By: #### C BC ####[facility] Bsmetrrbdx040[address] [place], [place] [address]Dr. Chrissy Frazier Erythrocyte distribution width (RBC) [Ratio] 13.2 % Normal 11.0-15.0 [facility] Comment on above: Performed By: #### C BC ####[facility] Zmyjtsugvg7562 [place] [address]Dr. Chrissy Frazier Hematocrit (Bld) [Volume fraction] 48.3 % Normal 42.0-54.0 [facility] Comment on above: Performed By: #### C BC ####[facility] Oyfazgigwa7824 [place] [address]Dr. Chrissy Frazier Hemoglobin (Bld) [Mass/Vol] 16.1 g/dL Normal 14.0-18.0 [facility] Comment on above: Performed By: #### C BC ####[facility] Oaeadbasoc7[address] [place], [place] [address]Dr. Chrissy Frazier IG # 0.12 10e3/ul Critically high 0.00-0.03 [facility] Comment on above: Performed By: #### C BC ####[facility] Sdyunkwqiy99[address] [place], [place] [address]Dr. Chrissy Frazier IG % 0.9 % Critically high 0.0-0.5 [facility] Comment on above: Performed By: #### C BC ####[facility] Dcfnaiqwoz[address] [place], [place] [address]Dr. Chrissy rFazier LYMPH # 3.0 103/ul Normal 1.2-3.8 [facility] Comment on above: Performed By: #### C BC ####[facility] Gllmivrycv517[address] [place], [place] [address]Dr. Chrissy Frazier Lymphocytes/100 WBC (Bld) 22.3 % Normal 20.5-60.0 [facility] Comment on above: Performed By: #### C BC ####[facility] Mattmdwcyd613[address] [place], [place] [address]Dr. Chrissy Frazier MANUAL DIFF REQ NO Normal [facility] Comment on above: Performed By: #### C BC ####[facility] Lthrpcimmb[address] [place], [place] [address]Dr. Chrissy Frazier MCH (RBC) [Entitic mass] 28.6 pg Normal 25.9-34.0 [facility] Comment on above: Performed By: #### C BC ####[facility] Nxpynxhycq3595 [place] [id number]. Chrissy Frazier MCHC (RBC) [Mass/Vol] 33.3 g/dL Normal 29.9-35.2 [facility] Comment on above: Performed By: #### C BC ####[facility] Fjqqtpydgd[address] [place], [place] [address]Dr. Chrissy Frazier MCV (RBC) [Entitic vol] 85.9 fL Normal 80.0-94.0 [facility] Comment on above: Performed By: #### C BC ####[facility] Qdmkhsdoyn[address] [place], [place] [address]Dr. Tishrowan Freddie MONO # 0.8 103/ul Normal 0.3-0.8 [facility] Comment on above: Performed By: #### C BC ####[facility] Iatgrvkmse[address] [place], [place] [address]Dr. Chrissy Frazier Monocytes/100 WBC (Bld) 5.7 % Normal 1.7-12.0 [facility] Comment on above: Performed By: #### C BC ####[facility] Ghpudqpzyg6[address] [place], [place] [address]Dr. Chrissy Frazier NEUT # 9.3 103/ul Critically high 1.4-6.5 [facility] Comment on above: Performed By: #### C BC ####[facility] Vmlzliglir74[address] [place], [place] [address]Dr. Chrissy Frazier Neutrophils/100 WBC (Bld) 70.1 % Normal 43.0-75.0 [facility] Comment on above: Performed By: #### C BC ####[facility] Owrbwxifvy013[address] [place], [place] [address]Dr. Chrissy Frazier Platelet mean volume (Bld) [Entitic vol] 10.3 fL Normal 9.5-13.5 [facility] Comment on above: Performed By: #### C BC ####[facility] Yaugyickja[address] [place], [place] [address]Dr. Chrissy Frazier PLT 461 103/ul Critically high 150-450 [facility] Comment on above: Performed By: #### C BC ####[facility] Mizgziijxu1362 [place] [id number]. Chrissy Frazier RBC 5.62 106/ul Normal 4.70-6.10 [facility] Comment on above: Performed By: #### C BC ####[facility] Fonzpjdsul1038 [place] [id number]. Chrissy Frazier WBC 13.3 103/ul Critically high 4.0-11.0 [facility] Comment on above: Performed By: #### C BC ####[facility] Noaqwvwvme6196 [place] [id number]. Chrissy Frazier LIPASEon 04-04-2022 Lipase [Catalytic activity/Vol] 118.0 U/L Normal 73.0-393.0 [facility] Comment on above: Performed By: #### C MP, TERRENCE, LIPA ####[facility] Obivsemqyh6984 [place] [address]Dr. Chrissy Frazier PROF 14(COMP METB)on 022 Albumin [Mass/Vol] 4.3 g/dL Normal 3.4-5.0 [facility] Comment on above: Performed By: #### C MP, TERRENCE, LIPA ####[facility] Blgcomfdad7001 [place] [address]Dr. Chrissy Frazier Albumin/Globulin [Mass ratio] 1.0 {ratio} Normal [facility] Comment on above: Performed By: #### C MP, TERRENCE, LIPA ####[facility] Ojlvepyild3674 [place] [address]Dr. Chrissy Frazier ALP [Catalytic activity/Vol] 84 U/L Normal 46-116 [facility] Comment on above: Performed By: #### C MP, TERRENCE, LIPA ####[facility] Jdhxlrsnms8859 [place] [address]Dr. Chrissy Frazier ALT [Catalytic activity/Vol] 81 U/L Critically high 16-63 [facility] Comment on above: Performed By: #### C MP, TERRENCE, LIPA ####[facility] Dfsztdidcy5283 [place] [address]Dr. Chrissy Frazier Anion gap [Moles/Vol] 17.9 mmol/L Normal [facility] Comment on above: Performed By: #### C TERRENCE ADAIR LIPA ####[facility] Reudlwyyqq2672 [place] [address]Dr. Chrissy Frazier AST [Catalytic activity/Vol] 25 U/L Normal 15-37 [facility] Comment on above: Performed By: #### C TERRENCE ADAIR LIPA ####[facility] Kbefoaefju8930 [place] [address]Dr. Chrissy Frazier Bilirubin [Mass/Vol] 0.5 mg/dL Normal 0.2-1.0 [facility] Comment on above: Performed By: #### C TERRENCE ADAIR LIPA ####[facility] Jmwvhmppdt6471 [place] [address]Dr. Chrissy Frazier Calcium [Mass/Vol] 9.6 mg/dL Normal 8.5-10.1 [facility] Comment on above: Performed By: #### C TERRENCE ADAIR LIPA ####[facility] Unpxjowqen8832 [place] [address]Dr. Chrissy Frazier Chloride [Moles/Vol] 101 mmol/L Normal 98-107 [facility] Comment on above: Performed By: #### C TERRENCE ADAIR LIPA ####[facility] Eowzqzzrcu6636 [place] [address]Dr. Chrissy Frazier CO2 [Moles/Vol] 18.6 mmol/L Critically low 21.0-32.0 [facility] Comment on above: Performed By: #### C TERRENCE ADAIR, LIPA ####[facility] Ycnoguynzo9263 [place] [address]Dr. Chrissy Frazier Creatinine [Mass/Vol] 1.39 mg/dL Critically high 0.70-1.30 [facility] Comment on above: Performed By: #### C TERRENCE ADAIR, LIPA ####[facility] Wccegiwsrr7467 [place] [address]Dr. Chrissy Frazier EGFR-AF ESTONIAN >60 Normal >=60 [facility] Comment on above: Performed By: #### C TERRENCE ADAIR, LIPA ####[facility] Dgcodkpxjx1473 [place] [address]Dr. Chrissy Frazier EGFR-NON AF ESTONIAN 59 mL/min/1.73m2 Critically low >=60 [facility] Comment on above: Performed By: #### C MP, TERRENCE, LIPA ####[facility] Bvieekewni5658 [place] [address]Dr. Chrissy Frazier Globulin (S) [Mass/Vol] 4.3 g/dL Normal [facility] Comment on above: Performed By: #### C MP, TERRENCE, LIPA ####[facility] Mhdhjiqtmr2533 [place] [address]Dr. Chrissy Frazier Glucose [Mass/Vol] 132 mg/dL Critically high 74-106 [facility] Comment on above: Performed By: #### C MP, TERRENCE, LIPA ####[facility] Bojtssjjwe8911 [place] [address]Dr. Chrissy Frazier Potassium [Moles/Vol] 3.5 mmol/L Normal 3.5-5.1 [facility] Comment on above: Performed By: #### C MP, TERRENCE, LIPA ####[facility] [address]wfacpsoq[address] [place], [place] [address]Dr. Chrissy Frazier Protein [Mass/Vol] 8.6 g/dL Critically high 6.4-8.2 [facility] Comment on above: Performed By: #### C MP, TERRENCE, LIPA ####[facility] Eettartgmr5045 [place] [address]Dr. Chrissy Frazier Sodium [Moles/Vol] 134 mmol/L Critically low 136-145 [facility] Comment on above: Performed By: #### C MP, TERRENCE, LIPA ####[facility] Vxewozhrvu[address] [place], [place] [address]Dr. Chrissy Frazier Urea nitrogen [Mass/Vol] 8.0 mg/dL Normal 7.0-18.0 [facility] Comment on above: Performed By: #### C MP, TERRENCE, LIPA ####[facility] Fbongffcer4425 [place] [address]Dr. Chrissy Frazier Urea nitrogen/Creatinine [Mass ratio] 5.8 mg/mg Normal [facility] Comment on above: Performed By: #### C TERRENCE ADAIR LIPA ####[facility] Linemmutwm8445 [place] [address]Dr. Chrissy Frazier XR ABD FLAT UP_PA Enoch 04-04 XR ABD FLAT UP_PA CH Normal [facility] AMMONIAon 03-31-2022 Ammonia (P) [Moles/Vol] 19 umol/L Normal 11-32 [facility] Comment on above: Performed By: #### A MM ####[facility] Wvtnbxbuul[address] [place], [place] [address]Dr. Chrissy Frazier CBC AUTO DIFFon 03-31-2022 BASO # 0.1 103/ul Normal 0.0-0.1 [facility] Comment on above: Performed By: #### C BC ####[facility] Xewaeahaqc[address] [place], [place] [address]Dr. Chrissy Frazier Basophils/100 WBC (Bld) 0.5 % Normal 0.2-2.0 [facility] Comment on above: Performed By: #### C BC ####[facility] Erqtjwtnzt232[address] [place], [place] [address]Dr. Chrissy Frazier EO # 0.2 103/ul Normal 0.0-0.7 [facility] Comment on above: Performed By: #### C BC ####[facility] Raxmydlgta5[address] [place], [place] [address]Dr. Chrissy Frazier Eosinophils/100 WBC (Bld) 1.6 % Normal 0.9-7.0 [facility] Comment on above: Performed By: #### C BC ####[facility] Iumxejdqto9089[address] [place], [place] [address]Dr. Chrissy Frazier Erythrocyte distribution width (RBC) [Ratio] 13.2 % Normal 11.0-15.0 [facility] Comment on above: Performed By: #### C BC ####[facility] Opzwlmpmeo4635[address] [place], [place] [address]Dr. Chrissy Frazier Hematocrit (Bld) [Volume fraction] 42.1 % Normal 42.0-54.0 [facility] Comment on above: Performed By: #### C BC ####[facility] Ujxexodesc76[address] [place] [address]DrNancy Frazier Hemoglobin (Bld) [Mass/Vol] 14.3 g/dL Normal 14.0-18.0 [facility] Comment on above: Performed By: #### C BC ####[facility] Gysuaymrbz7856 [place] [address]DrNancy Frazier IG # 0.05 10e3/ul Critically high 0.00-0.03 [facility] Comment on above: Performed By: #### C BC ####[facility] Ducthatcjy7[address] [place], [place] [address]DrNancy Frazier IG % 0.5 % Normal 0.0-0.5 [facility] Comment on above: Performed By: #### C BC ####[facility] Okhdksvcfz924[address] [place], [place] [address]DrNancy Frazier LYMPH # 2.9 103/ul Normal 1.2-3.8 [facility] Comment on above: Performed By: #### C BC ####[facility] Dfndjqzzql6[address] [place], [place] [address]DrNancy Frazier Lymphocytes/100 WBC (Bld) 25.7 % Normal 20.5-60.0 [facility] Comment on above: Performed By: #### C BC ####[facility] Piopgwxdnd304[address] [place], [place] [address]DrNancy Frazier MANUAL DIFF REQ NO Normal [facility] Comment on above: Performed By: #### C BC ####[facility] Gdysdqyopm24[address] [place] [address]DrNancy Frazier MCH (RBC) [Entitic mass] 29.2 pg Normal 25.9-34.0 [facility] Comment on above: Performed By: #### C BC ####[facility] Idarvyuehu4227 [place] [address]DrNancy Frazier MCHC (RBC) [Mass/Vol] 34.0 g/dL Normal 29.9-35.2 [facility] Comment on above: Performed By: #### C BC ####[facility] Dazmpjexdk2927 [place] [address]DrNancy Farzier MCV (RBC) [Entitic vol] 85.9 fL Normal 80.0-94.0 [facility] Comment on above: Performed By: #### C BC ####[facility] Tdpyrxqozg7121 [place] [address]DrNancy Frazier MONO # 1.0 103/ul Critically high 0.3-0.8 [facility] Comment on above: Performed By: #### C BC ####[facility] Ywkvtvroza[address] [place], [place] [address]DrNancy Frazier Monocytes/100 WBC (Bld) 8.6 % Normal 1.7-12.0 [facility] Comment on above: Performed By: #### C BC ####[facility] Xjqgrpgqha4212[address] [place], [place] [address]DrNancy Frazier NEUT # 7.0 103/ul Critically high 1.4-6.5 [facility] Comment on above: Performed By: #### C BC ####[facility] Huqogxwqts5[address] [place], [place] [address]DrNancy Frazier Neutrophils/100 WBC (Bld) 63.1 % Normal 43.0-75.0 [facility] Comment on above: Performed By: #### C BC ####[facility] Psvuynrddk5457[address] [place], [place] [address]DrNancy Frazier Platelet mean volume (Bld) [Entitic vol] 10.4 fL Normal 9.5-13.5 [facility] Comment on above: Performed By: #### C BC ####[facility] Fjchtsfcgy338[address] [place], [place] [address]DrNancy Frazier PLT 308 103/ul Normal 150-450 [facility] Comment on above: Performed By: #### C BC ####[facility] Roxnltzvlu1357[address] [place], [place] [address]DrNancy Frazier RBC 4.90 106/ul Normal 4.70-6.10 [facility] Comment on above: Performed By: #### C BC ####[facility] Kckzvwftes1396 [place] [address]Dr. Chrissy Frazier WBC 11.1 103/ul Critically high 4.0-11.0 [facility] Comment on above: Performed By: #### C BC ####[facility] Zoakgdkjcg4130 [place] [address]DrNancy Frazier PROF 14(COMP METB)on 022 Albumin [Mass/Vol] 3.5 g/dL Normal 3.4-5.0 [facility] Comment on above: Performed By: #### C MP ####[facility] Stypjjjttu268[address] [place], [place] [address]Dr. Chrissy Frazier Albumin/Globulin [Mass ratio] 0.9 {ratio} Normal [facility] Comment on above: Performed By: #### C MP ####[facility] Quggrrwkcg2617[address] [place], [place] [address]Dr. Chrissy Frazier ALP [Catalytic activity/Vol] 68 U/L Normal 46-116 [facility] Comment on above: Performed By: #### C MP ####[facility] Ywpvvqeojn4310[address] [place], [place] [address]Dr. Chrissy Frazier ALT [Catalytic activity/Vol] 113 U/L Critically high 16-63 [facility] Comment on above: Performed By: #### C MP ####[facility] Iwduhdzhiw0515[address] [place], [place] [address]Dr. Chrissy Frazier Anion gap [Moles/Vol] 14.0 mmol/L Normal [facility] Comment on above: Performed By: #### C MP ####[facility] Fqhvwyksvc194[address] [place], [place] [address]Dr. Chrissy Frazier AST [Catalytic activity/Vol] 31 U/L Normal 15-37 [facility] Comment on above: Performed By: #### C MP ####[facility] Jynzgtdugx889[address] [place], [place] [address]Dr. Chrissy Frazier Bilirubin [Mass/Vol] 0.6 mg/dL Normal 0.2-1.0 [facility] Comment on above: Performed By: #### C MP ####[facility] Qdoievcbgf0049[address] [place], [place] [address]Dr. Chrissy Frazier Calcium [Mass/Vol] 8.4 mg/dL Critically low 8.5-10.1 [facility] Comment on above: Performed By: #### C MP ####[facility] Lcbkcupkek0706 [place] [address]Dr. Chrissy Frazier Chloride [Moles/Vol] 101 mmol/L Normal 98-107 [facility] Comment on above: Performed By: #### C MP ####[facility] Cofmwixtjz499[address] [place], [place] [address]Dr. Chrissy Frazier CO2 [Moles/Vol] 24.2 mmol/L Normal 21.0-32.0 [facility] Comment on above: Performed By: #### C MP ####[facility] Mcauocvlkz100[address] [place], [place] [address]Dr. Chrissy Frazier Creatinine [Mass/Vol] 1.15 mg/dL Normal 0.70-1.30 [facility] Comment on above: Performed By: #### C MP ####[facility] Lvadynkzef222[address] [place], [place] [address]Dr. Chrissy Frazier EGFR-AF ESTONIAN >60 Normal >=60 [facility] Comment on above: Performed By: #### C MP ####[facility] Ozbimldjtz4905[address] [place], [place] [address]Dr. Chrissy Frazier EGFR-NON AF ESTONIAN >60 Normal >=60 [facility] Comment on above: Performed By: #### C MP ####[facility] Rwrclkvgfe996[address] [place], [place] [address]Dr. Chrissy Frazier Globulin (S) [Mass/Vol] 3.8 g/dL Normal [facility] Comment on above: Performed By: #### C MP ####[facility] Pasldlmvst8817[address] [place], [place] [address]Dr. Chrissy Frazier Glucose [Mass/Vol] 100 mg/dL Normal 74-106 [facility] Comment on above: Performed By: #### C MP ####[facility] Rrwrfhsymk2053 [place] [address]Dr. Chrissy Frazier Potassium [Moles/Vol] 3.2 mmol/L Critically low 3.5-5.1 [facility] Comment on above: Performed By: #### C MP ####[facility] Flkwabtjkq4514 [place] [address]Dr. Chrissy Frazier Protein [Mass/Vol] 7.3 g/dL Normal 6.4-8.2 [facility] Comment on above: Performed By: #### C MP ####[facility] Dmbvedkiyj0537[address] [place], [place] [address]Dr. Chrissy Freddie Sodium [Moles/Vol] 136 mmol/L Normal 136-145 [facility] Comment on above: Performed By: #### C MP ####[facility] Mqrteqtdpt8080[address] [place], [place] [address]Dr. Chrissy Freddie Urea nitrogen [Mass/Vol] 13.0 mg/dL Normal 7.0-18.0 [facility] Comment on above: Performed By: #### C MP ####[facility] Nnjlvpyuim6901[address] [place], [place] [address]Dr. Chrissy Freddie Urea nitrogen/Creatinine [Mass ratio] 11.3 mg/mg Normal [facility] Comment on above: Performed By: #### C MP ####[facility] Kccloldqlj535[address] [place], [place] [address]Dr. Chrissy Freddie AMMONIAon 03-30-2022 Ammonia (P) [Mass/Vol] ug/dL Critically low 11-32 [facility] Comment on above: Performed By: #### A MM ####[facility] Sblzvbfwvv1837[address] [place], [place] [address]Dr. Chrissy Freddie CBC AUTO DIFFon 03-30-2022 BASO # 0.1 103/ul Normal 0.0-0.1 [facility] Comment on above: Performed By: #### C BC ####[facility] Joljpsroum866[address] [place], [place] [address]Dr. Tishrowan Frazier Basophils/100 WBC (Bld) 0.5 % Normal 0.2-2.0 [facility] Comment on above: Performed By: #### C BC ####[facility] Cnvqployvd4770 [place] [address]Dr. Chrissy Frazier EO # 0.1 103/ul Normal 0.0-0.7 [facility] Comment on above: Performed By: #### C BC ####[facility] Eianfaptsy367[address] [place], [place] [address]Dr. Chrissy Frazier Eosinophils/100 WBC (Bld) 1.1 % Normal 0.9-7.0 [facility] Comment on above: Performed By: #### C BC ####[facility] Sbvfdyzctc658[address] [place], [place] [address]Dr. Chrissy Frazier Erythrocyte distribution width (RBC) [Ratio] 13.4 % Normal 11.0-15.0 [facility] Comment on above: Performed By: #### C BC ####[facility] Otaspvrgdq6145[address] [place], [place] [address]Dr. Chrissy Frazier Hematocrit (Bld) [Volume fraction] 45.8 % Normal 42.0-54.0 [facility] Comment on above: Performed By: #### C BC ####[facility] Wfgduarzdp6030[address] [place], [place] [address]Dr. Tishrowan Frazier Hemoglobin (Bld) [Mass/Vol] 14.9 g/dL Normal 14.0-18.0 [facility] Comment on above: Performed By: #### C BC ####[facility] Xlswzkqrda7028[address] [place], [place] [address]Dr. Chrissy Frazier IG # 0.05 10e3/ul Critically high 0.00-0.03 [facility] Comment on above: Performed By: #### C BC ####[facility] Skxmwkefbb694[address] [place], [place] [address]Dr. Chrissy Frazier IG % 0.5 % Normal 0.0-0.5 [facility] Comment on above: Performed By: #### C BC ####[facility] Cbewhcwkya055[address] [place], [place] [address]Dr. Chrissy Frazier LYMPH # 3.0 103/ul Normal 1.2-3.8 [facility] Comment on above: Performed By: #### C BC ####[facility] Nkrkulqsfx5212 [place] [address]Dr. Chrissy Frazier Lymphocytes/100 WBC (Bld) 30.2 % Normal 20.5-60.0 [facility] Comment on above: Performed By: #### C BC ####[facility] Ficztwroqs4790 [place] [address]Dr. Chrissy Frazier MANUAL DIFF REQ NO Normal [facility] Comment on above: Performed By: #### C BC ####[facility] Qvbqagzdrd3868 [place] [id number]. Chrissy Frazier MCH (RBC) [Entitic mass] 28.4 pg Normal 25.9-34.0 [facility] Comment on above: Performed By: #### C BC ####[facility] Dqesexzssi1110[address] [place], [place] [address]Dr. Chrissy Frazier MCHC (RBC) [Mass/Vol] 32.5 g/dL Normal 29.9-35.2 [facility] Comment on above: Performed By: #### C BC ####[facility] Inyfryouqg544[address] [place], [place] [address]Dr. Chrissy Frazier MCV (RBC) [Entitic vol] 87.4 fL Normal 80.0-94.0 [facility] Comment on above: Performed By: #### C BC ####[facility] Awvdiisnuz6909[address] [place], [place] [address]Dr. Chrissy Frazier MONO # 0.8 103/ul Normal 0.3-0.8 [facility] Comment on above: Performed By: #### C BC ####[facility] Wcbnhkbohc664[address] [place], [place] [address]Dr. Chrissy Frazier Monocytes/100 WBC (Bld) 7.9 % Normal 1.7-12.0 [facility] Comment on above: Performed By: #### C BC ####[facility] Tvjycabzdz734[address] [place], [place] [address]Dr. Chrissy Frazier NEUT # 5.9 103/ul Normal 1.4-6.5 [facility] Comment on above: Performed By: #### C BC ####[facility] Lxsssvfmsg0432 [place] [address]Dr. Chrissy Freddie Neutrophils/100 WBC (Bld) 59.8 % Normal 43.0-75.0 [facility] Comment on above: Performed By: #### C BC ####[facility] Clhwyqyugd2974 [place] [address]Dr. Chrissy Freddie Platelet mean volume (Bld) [Entitic vol] 10.1 fL Normal 9.5-13.5 [facility] Comment on above: Performed By: #### C BC ####[facility] Kocblpgyar5417 [place] [address]Dr. Chrissy Frazier PLT 320 103/ul Normal 150-450 [facility] Comment on above: Performed By: #### C BC ####[facility] Iqjaewzdcw1739[address] [place], [place] [address]Dr. Chrissy Frazier RBC 5.24 106/ul Normal 4.70-6.10 [facility] Comment on above: Performed By: #### C BC ####[facility] Luarybdskf7009[address] [place], [place] [address]Dr. Tishrowan Freddie WBC 9.9 103/ul Normal 4.0-11.0 [facility] Comment on above: Performed By: #### C BC ####[facility] Xamlyjtjhz0679[address] [place], [place] [address]Dr. Chrissy Frazier PROF 14(COMP METB)on 022 Albumin [Mass/Vol] 3.9 g/dL Normal 3.4-5.0 [facility] Comment on above: Performed By: #### C MP ####[facility] Wetzlsjqkx85[address] [place], [place] [address]Dr. Chrissy Frazier Albumin/Globulin [Mass ratio] 1.1 {ratio} Normal [facility] Comment on above: Performed By: #### C MP ####[facility] Noigflxgll8516 [place] [id number]. Chrissy Frazier ALP [Catalytic activity/Vol] 88 U/L Normal 46-116 [facility] Comment on above: Performed By: #### C MP ####[facility] Ltlqjxaapv3410 [place] [id number]. Chrissy Frazier ALT [Catalytic activity/Vol] 161 U/L Critically high 16-63 [facility] Comment on above: Performed By: #### C MP ####[facility] Xhebvugmek1084 [place] [id number]. Chrissy Frazier Anion gap [Moles/Vol] 12.3 mmol/L Normal [facility] Comment on above: Performed By: #### C MP ####[facility] Fahksdaaly3965 [place] [phone]. Chrissy Frazier AST [Catalytic activity/Vol] 64 U/L Critically high 15-37 [facility] Comment on above: Performed By: #### C MP ####[facility] Zvtgggttnz8543 [place] [phone]. Chrissy Frazier Bilirubin [Mass/Vol] 0.8 mg/dL Normal 0.2-1.0 [facility] Comment on above: Performed By: #### C MP ####[facility] Trkzmbeifg2855 [place] [id number]. Chrissy Frazier Calcium [Mass/Vol] 8.4 mg/dL Critically low 8.5-10.1 [facility] Comment on above: Performed By: #### C MP ####[facility] Qysgypvmch5112 [place] [phone]. Chrissy Frazier Chloride [Moles/Vol] 103 mmol/L Normal 98-107 [facility] Comment on above: Performed By: #### C MP ####[facility] Zntuhrynuk9806 [place] [phone]. Chrissy Frazier CO2 [Moles/Vol] 26.5 mmol/L Normal 21.0-32.0 [facility] Comment on above: Performed By: #### C MP ####[facility] Xabzkptjla2568 [place] [phone]. Chrissy Freddie Creatinine [Mass/Vol] 1.24 mg/dL Normal 0.70-1.30 [facility] Comment on above: Performed By: #### C MP ####[facility] Odfywjnwfz1918 [place] [address]Dr. Chrissy Frazier EGFR-AF ESTONIAN >60 Normal >=60 [facility] Comment on above: Performed By: #### C MP ####[facility] Odzswljvdq3881 [place] [address]Dr. Chrissy Frazier EGFR-NON AF ESTONIAN >60 Normal >=60 [facility] Comment on above: Performed By: #### C MP ####[facility] Nlidfcrwnd2545 [place] [address]Dr. Chrissy Frazier Globulin (S) [Mass/Vol] 3.7 g/dL Normal [facility] Comment on above: Performed By: #### C MP ####[facility] Kagyhjrvjc2966 [place] [address]Dr. Chrissy Frazier Glucose [Mass/Vol] 108 mg/dL Critically high 74-106 [facility] Comment on above: Performed By: #### C MP ####[facility] Zojdejdjks1983 [place] [address]Dr. Chrissy Frazier Potassium [Moles/Vol] 3.8 mmol/L Normal 3.5-5.1 [facility] Comment on above: Performed By: #### C MP ####[facility] Ygvqftnhti5324 [place] [address]Dr. Chrissy Frazier Protein [Mass/Vol] 7.6 g/dL Normal 6.4-8.2 [facility] Comment on above: Performed By: #### C MP ####[facility] Yvpyomwjoi3897 [place] [address]Dr. Chrissy Frazier Sodium [Moles/Vol] 138 mmol/L Normal 136-145 [facility] Comment on above: Performed By: #### C MP ####[facility] Ymfjthjcxm280[address] [place], [place] [address]Dr. Chrissy Frazier Urea nitrogen [Mass/Vol] 12.0 mg/dL Normal 7.0-18.0 [facility] Comment on above: Performed By: #### C MP ####[facility] Akwxqnquyl8514 [place] [address]Dr. Chrissy Frazier Urea nitrogen/Creatinine [Mass ratio] 9.7 mg/mg Normal [facility] Comment on above: Performed By: #### C MP ####[facility] Icueeemenl7765 [place] [address]Dr. Chrissy Frazier AMMONIAon 03-29-2022 Ammonia (P) [Moles/Vol] 27 umol/L Normal 11-32 [facility] Comment on above: Performed By: #### A MM ####[facility] Fqaeypacho[address] [place], [place] [address]Dr. Chrissy Frazier AMYLASEon 03-29-2022 Amylase [Catalytic activity/Vol] 29 U/L Normal 25-115 [facility] Comment on above: Performed By: #### L IPA, TERRENCE ####[facility] Yuznqzkpnu36[address] [place], [place] [address]Dr. Chrissy Frazier CBC AUTO DIFFon 03-29-2022 BASO # 0.0 103/ul Normal 0.0-0.1 [facility] Comment on above: Performed By: #### C BC ####[facility] Jepnpwcrxg701[address] [place], [place] [address]Dr. Chrissy Frazier Basophils/100 WBC (Bld) 0.2 % Normal 0.2-2.0 [facility] Comment on above: Performed By: #### C BC ####[facility] Xngdyyggng2944[address] [place], [place] [address]Dr. Chrissy Frazier EO # 0.0 103/ul Normal 0.0-0.7 [facility] Comment on above: Performed By: #### C BC ####[facility] Ztedfwhvhc9908[address] [place], [place] [address]Dr. Chrissy Frazier Eosinophils/100 WBC (Bld) 0.4 % Critically low 0.9-7.0 [facility] Comment on above: Performed By: #### C BC ####[facility] Grsdeclimy5840[address] [place], [place] [address]Dr. Chrissy Frazier Erythrocyte distribution width (RBC) [Ratio] 13.6 % Normal 11.0-15.0 [facility] Comment on above: Performed By: #### C BC ####[facility] Otwuspkfss3800 [place] [address]Dr. Chrissy Frazier Hematocrit (Bld) [Volume fraction] 45.2 % Normal 42.0-54.0 [facility] Comment on above: Performed By: #### C BC ####[facility] Hfzsdgqhlf8774 [place] [address]Dr. Chrissy Frazier Hemoglobin (Bld) [Mass/Vol] 14.8 g/dL Normal 14.0-18.0 [facility] Comment on above: Performed By: #### C BC ####[facility] Zwdipkzdbq26[address] [place], [place] [address]Dr. Chrissy Frazier IG # 0.03 10e3/ul Normal 0.00-0.03 [facility] Comment on above: Performed By: #### C BC ####[facility] Nhnwfybnbu24[address] [place], [place] [address]Dr. Chrissy Frazier IG % 0.3 % Normal 0.0-0.5 [facility] Comment on above: Performed By: #### C BC ####[facility] Ityymvymfc27[address] [place], [place] [address]Dr. Chrissy Frazier LYMPH # 2.0 103/ul Normal 1.2-3.8 [facility] Comment on above: Performed By: #### C BC ####[facility] Kpkjqzydzi449[address] [place], [place] [address]Dr. Chrissy Frazier Lymphocytes/100 WBC (Bld) 18.3 % Critically low 20.5-60.0 [facility] Comment on above: Performed By: #### C BC ####[facility] Jwcbhwvxjm8028[address] [place], [place] [address]Dr. Chrissy Frazier MANUAL DIFF REQ NO Normal [facility] Comment on above: Performed By: #### C BC ####[facility] Lixfdlgboi6478 [place] [address]Dr. Chrissy Frazier MCH (RBC) [Entitic mass] 28.5 pg Normal 25.9-34.0 [facility] Comment on above: Performed By: #### C BC ####[facility] Ogqidixbgz8818 [place] [address]Dr. Chrissy Frazier MCHC (RBC) [Mass/Vol] 32.7 g/dL Normal 29.9-35.2 [facility] Comment on above: Performed By: #### C BC ####[facility] Rssufqxual[address] [place], [place] [address]DrNancy Frazier MCV (RBC) [Entitic vol] 87.1 fL Normal 80.0-94.0 [facility] Comment on above: Performed By: #### C BC ####[facility] Bkkhlxyqld046[address] [place], [place] [address]DrNancy Frazier MONO # 0.9 103/ul Critically high 0.3-0.8 [facility] Comment on above: Performed By: #### C BC ####[facility] Pskgzqbfey8612[address] [place], [place] [address]DrNancy Frazier Monocytes/100 WBC (Bld) 8.6 % Normal 1.7-12.0 [facility] Comment on above: Performed By: #### C BC ####[facility] Ynqrkcxqas58[address] [place], [place] [address]DrNancy Frazier NEUT # 7.8 103/ul Critically high 1.4-6.5 [facility] Comment on above: Performed By: #### C BC ####[facility] Xbcjdbpcta[address] [place], [place] [address]DrNancy Frazier Neutrophils/100 WBC (Bld) 72.2 % Normal 43.0-75.0 [facility] Comment on above: Performed By: #### C BC ####[facility] Wvpteqgmbx027[address] [place], [place] [address]DrNancy Frazier Platelet mean volume (Bld) [Entitic vol] 10.1 fL Normal 9.5-13.5 [facility] Comment on above: Performed By: #### C BC ####[facility] Ypbowqysrs28[address] [place], [place] [address]DrNancy Frazier PLT 329 103/ul Normal 150-450 [facility] Comment on above: Performed By: #### C BC ####[facility] Bbvhsuwrtl3446 [place] [phone]. Chrissy Frazier RBC 5.19 106/ul Normal 4.70-6.10 [facility] Comment on above: Performed By: #### C BC ####[facility] Bmkclterep9584 [place] [phone]. Chrissy Frazier WBC 10.8 103/ul Normal 4.0-11.0 [facility] Comment on above: Performed By: #### C BC ####[facility] Ixsaqwtxre1467 [place] [phone]. Chrissy Frazier LIPASEon 03-29-2022 Lipase [Catalytic activity/Vol] 58.0 U/L Critically low 73.0-393.0 [facility] Comment on above: Performed By: #### L IPA, TERRENCE ####[facility] Ssugufojzy[address] [place], [place] [address]Dr. Chrissy Frazier NM HEPATOBILIARY SCAN W EFon 03-29-2022 NM HEPATOBILIARY SCAN W EF Normal [facility] PROF 14(COMP METB)on 022 Albumin [Mass/Vol] 3.8 g/dL Normal 3.4-5.0 [facility] Comment on above: Performed By: #### C MP ####[facility] Wvsvwppkqo5644 [place] [address]DrNancy Chrissy Frazier Albumin/Globulin [Mass ratio] 1.0 {ratio} Normal [facility] Comment on above: Performed By: #### C MP ####[facility] Gxmnltpbyn3310 [place] [phone]. hCrissy Frazier ALP [Catalytic activity/Vol] 69 U/L Normal 46-116 [facility] Comment on above: Performed By: #### C MP ####[facility] Sxopwbguyo2884 [place] [phone]. Chrissy Freddie ALT [Catalytic activity/Vol] 117 U/L Critically high 16-63 [facility] Comment on above: Performed By: #### C MP ####[facility] Llbcfobnoh4013 [place] [phone]. Chrissy Frazier Anion gap [Moles/Vol] 16.7 mmol/L Normal [facility] Comment on above: Performed By: #### C MP ####[facility] Tvheoqnyih9787 [place] [phone]. Chrissy rFazier AST [Catalytic activity/Vol] 77 U/L Critically high 15-37 [facility] Comment on above: Performed By: #### C MP ####[facility] Fbwcycwlox6089 [place] [phone]. Chrissy Frazier Bilirubin [Mass/Vol] 1.5 mg/dL Critically high 0.2-1.0 [facility] Comment on above: Performed By: #### C MP ####[facility] Ltxlglokmj4559 [place] [address]Dr. Chrissy Frazier Calcium [Mass/Vol] 8.1 mg/dL Critically low 8.5-10.1 [facility] Comment on above: Performed By: #### C MP ####[facility] Xrrzcawmxk0533 [place] [phone]. Chrissy Frazier Chloride [Moles/Vol] 101 mmol/L Normal 98-107 [facility] Comment on above: Performed By: #### C MP ####[facility] Tzrbedcvam3166 [place] [phone]. Chrissy Frazier CO2 [Moles/Vol] 24.5 mmol/L Normal 21.0-32.0 [facility] Comment on above: Performed By: #### C MP ####[facility] Dzbplcavbo6838 [place] [phone]. Chrissy Frazier Creatinine [Mass/Vol] 1.17 mg/dL Normal 0.70-1.30 [facility] Comment on above: Performed By: #### C MP ####[facility] Jeiwefbmem3660 [place] [phone]. Chrissy Freddie EGFR-AF ESTONIAN >60 Normal >=60 [facility] Comment on above: Performed By: #### C MP ####[facility] Onhdkhbuxm65[address] [place] [id number]. Chrissy Frazier EGFR-NON AF ESTONIAN >60 Normal >=60 [facility] Comment on above: Performed By: #### C MP ####[facility] Xfbaonxqcj9[address] [place] [address]Dr. Chrissy Frazier Globulin (S) [Mass/Vol] 3.9 g/dL Normal [facility] Comment on above: Performed By: #### C MP ####[facility] Gwawtfcrmc9[address] [place] [address]Dr. Chrissy Frazier Glucose [Mass/Vol] 104 mg/dL Normal 74-106 [facility] Comment on above: Performed By: #### C MP ####[facility] Kddfkhxtvp3118 [place] [address]Dr. Chrissy Frazier Potassium [Moles/Vol] 3.2 mmol/L Critically low 3.5-5.1 [facility] Comment on above: Performed By: #### C MP ####[facility] Rgwamleipy[address] [place], [place] [address]Dr. Chrissy Frazier Protein [Mass/Vol] 7.7 g/dL Normal 6.4-8.2 [facility] Comment on above: Performed By: #### C MP ####[facility] Oidoozrcod[address] [place], [place] [address]Dr. Chrissy Frazier Sodium [Moles/Vol] 139 mmol/L Normal 136-145 [facility] Comment on above: Performed By: #### C MP ####[facility] Ysigkwmzwk69[address] [place], [place] [address]Dr. Chrissy Frazier Urea nitrogen [Mass/Vol] 11.0 mg/dL Normal 7.0-18.0 [facility] Comment on above: Performed By: #### C MP ####[facility] Nbhizpjisw[address] [place], [place] [address]Dr. Chrissy Frazier Urea nitrogen/Creatinine [Mass ratio] 9.4 mg/mg Normal [facility] Comment on above: Performed By: #### C MP ####[facility] Paxcbzinzy[address] [place], [place] [address]Dr. Chrissy Frazier US SINGLE QUAD RT UPPERon US SINGLE QUAD RT UPPER Normal [facility] AMMONIAon 03-28-2022 Ammonia (P) [Moles/Vol] 12 umol/L Normal 11-32 [facility] Comment on above: Performed By: #### A MM ####[facility] Pzmcxlohxn8742 [place] [address]Dr. Chrissy Frazier CBC AUTO DIFFon 03-28-2022 BASO # 0.0 103/ul Normal 0.0-0.1 [facility] Comment on above: Performed By: #### C BC ####[facility] Lasohnpfti[address] [place], [place] [address]Dr. Chrissy Frazier Basophils/100 WBC (Bld) 0.1 % Critically low 0.2-2.0 [facility] Comment on above: Performed By: #### C BC ####[facility] Nnxgawpdui4[address] [place], [place] [address]Dr. Chrissy Frazier EO # 0.0 103/ul Normal 0.0-0.7 [facility] Comment on above: Performed By: #### C BC ####[facility] Mzcaxywwpn04[address] [place], [place] [address]Dr. Chrissy Frazier Eosinophils/100 WBC (Bld) 0.0 % Critically low 0.9-7.0 [facility] Comment on above: Performed By: #### C BC ####[facility] Rlgngsbdoq95[address] [place], [place] [address]Dr. Chrissy Frazier Erythrocyte distribution width (RBC) [Ratio] 14.0 % Normal 11.0-15.0 [facility] Comment on above: Performed By: #### C BC ####[facility] Ylebnvcdrj[address] [place], [place] [address]DrNancy Frazier Hematocrit (Bld) [Volume fraction] 44.2 % Normal 42.0-54.0 [facility] Comment on above: Performed By: #### C BC ####[facility] Ebiywzovrc04[address] [place], [place] [address]DrNancy Frazier Hemoglobin (Bld) [Mass/Vol] 14.7 g/dL Normal 14.0-18.0 [facility] Comment on above: Performed By: #### C BC ####[facility] Klcoxuwmkq1268 [place] [address]DrNancy Frazier IG # 0.10 10e3/ul Critically high 0.00-0.03 [facility] Comment on above: Performed By: #### C BC ####[facility] Ogldozywrc2221 [place] [address]DrNancy Frazier IG % 0.5 % Normal 0.0-0.5 [facility] Comment on above: Performed By: #### C BC ####[facility] Dlqqdqthbj7[address] [place], [place] [address]DrNancy Frazier LYMPH # 2.6 103/ul Normal 1.2-3.8 [facility] Comment on above: Performed By: #### C BC ####[facility] Ebtxehzeqk3021 [place] [address]DrNancy Frazier Lymphocytes/100 WBC (Bld) 13.8 % Critically low 20.5-60.0 [facility] Comment on above: Performed By: #### C BC ####[facility] Kgiigsswca6359 [place] [address]DrNancy Frazier MANUAL DIFF REQ NO Normal [facility] Comment on above: Performed By: #### C BC ####[facility] Mdgyvbomor7314 [place] [address]DrNancy Frazier MCH (RBC) [Entitic mass] 29.0 pg Normal 25.9-34.0 [facility] Comment on above: Performed By: #### C BC ####[facility] Ckagncxsqf9242 [place] [address]DrNancy Frazier MCHC (RBC) [Mass/Vol] 33.3 g/dL Normal 29.9-35.2 [facility] Comment on above: Performed By: #### C BC ####[facility] Kxrtiljhyp9884 [place] [address]DrNancy Frazier MCV (RBC) [Entitic vol] 87.2 fL Normal 80.0-94.0 [facility] Comment on above: Performed By: #### C BC ####[facility] Zjaynrofvp2468 [place] [id number] Frazier MONO # 1.1 103/ul Critically high 0.3-0.8 The [facility] Comment on above: Performed By: #### C BC ####[facility] Xburfevtzh2672 [place] [id number] Frazier Monocytes/100 WBC (Bld) 5.9 % Normal 1.7-12.0 [facility] Comment on above: Performed By: #### C BC ####[facility] Uikzzwozbc8383 [place] [address]DrNancy Frazier NEUT # 15.1 103/ul Critically high 1.4-6.5 The [facility] Comment on above: Performed By: #### C BC ####[facility] Ufhmexykep1086 [place] [address]Dr. Chrissy Frazier Neutrophils/100 WBC (Bld) 79.7 % Critically high 43.0-75.0 [facility] Comment on above: Performed By: #### C BC ####[facility] Vbkyyvutwj0412 [place] [id number] Frazier Platelet mean volume (Bld) [Entitic vol] 10.3 fL Normal 9.5-13.5 [facility] Comment on above: Performed By: #### C BC ####[facility] Xqbsmaqfcb2960 [place] [phone]. Chrissy Frazier PLT 358 103/ul Normal 150-450 [facility] Comment on above: Performed By: #### C BC ####[facility] Qpwuowstok3271 [place] [phone] Frazier RBC 5.07 106/ul Normal 4.70-6.10 [facility] Comment on above: Performed By: #### C BC ####[facility] Ljvzncqhuw6342 [place] [id number] Frazier WBC 18.9 103/ul Critically high 4.0-11.0 [facility] Comment on above: Performed By: #### C BC ####[facility] Pjoufuouzw4518 [place] [address]DrNancy Frazier PROF 14(COMP METB)on 022 Albumin [Mass/Vol] 3.9 g/dL Normal 3.4-5.0 [facility] Comment on above: Performed By: #### C MP ####[facility] Duptdmtnxq1087 [place] [address]DrNancy Frazier Albumin/Globulin [Mass ratio] 1.1 {ratio} Normal [facility] Comment on above: Performed By: #### C MP ####[facility] Gqmvwzuqmq87[address] [place], [place] [address]DrNancy Frazier ALP [Catalytic activity/Vol] 65 U/L Normal 46-116 [facility] Comment on above: Performed By: #### C MP ####[facility] Zqhayfrbgn76[address] [place], [place] [address]Dr. Chrissy Frazier ALT [Catalytic activity/Vol] 46 U/L Normal 16-63 [facility] Comment on above: Performed By: #### C MP ####[facility] Erbfpzbwyh40[address] [place], [place] [address]DrNancy Frazier Anion gap [Moles/Vol] 13.2 mmol/L Normal [facility] Comment on above: Performed By: #### C MP ####[facility] Onqzzzfcgl0304 [place] [address]DrNancy Frazier AST [Catalytic activity/Vol] 33 U/L Normal 15-37 [facility] Comment on above: Performed By: #### C MP ####[facility] Ygmlgaudjx5634 [place] [id number] Frazier Bilirubin [Mass/Vol] 0.8 mg/dL Normal 0.2-1.0 [facility] Comment on above: Performed By: #### C MP ####[facility] Tczuqmfdqg7733 [place] [phone] Frazier Calcium [Mass/Vol] 8.1 mg/dL Critically low 8.5-10.1 [facility] Comment on above: Performed By: #### C MP ####[facility] Vklqebimxl0268 [place] [address]Dr. Chrissy Frazier Chloride [Moles/Vol] 102 mmol/L Normal 98-107 [facility] Comment on above: Performed By: #### C MP ####[facility] Jawevvfssc6446 [place] [address]Dr. Chrissy Frazier CO2 [Moles/Vol] 24.0 mmol/L Normal 21.0-32.0 [facility] Comment on above: Performed By: #### C MP ####[facility] Luudmcaeuo7724 [place] [address]Dr. Chrissy Frazier Creatinine [Mass/Vol] 1.26 mg/dL Normal 0.70-1.30 [facility] Comment on above: Performed By: #### C MP ####[facility] Pqlylkfrsx64[address] [place], [place] [address]Dr. Chrissy Frazier EGFR-AF ESTONIAN >60 Normal >=60 [facility] Comment on above: Performed By: #### C MP ####[facility] Dujjvwfnny[address] [place], [place] [address]Dr. Chrissy Frazier EGFR-NON AF ESTONIAN >60 Normal >=60 [facility] Comment on above: Performed By: #### C MP ####[facility] Iuvfpqbrfa419[address] [place], [place] [address]Dr. Chrissy Frazier Globulin (S) [Mass/Vol] 3.7 g/dL Normal [facility] Comment on above: Performed By: #### C MP ####[facility] Dedukfnozh4155 [place] [address]Dr. Chrissy Frazier Glucose [Mass/Vol] 119 mg/dL Critically high 74-106 [facility] Comment on above: Performed By: #### C MP ####[facility] Smtokgadke2110 [place] [address]Dr. Tishrowan Frazier Potassium [Moles/Vol] 3.2 mmol/L Critically low 3.5-5.1 [facility] Comment on above: Performed By: #### C MP ####[facility] Uujblmaecp6866 [place] [address]Dr. Chrissy Frazier Protein [Mass/Vol] 7.6 g/dL Normal 6.4-8.2 [facility] Comment on above: Performed By: #### C MP ####[facility] Icrgvoqawr6393 [place] [address]Dr. Chrissy Frazier Sodium [Moles/Vol] 136 mmol/L Normal 136-145 [facility] Comment on above: Performed By: #### C MP ####[facility] Mzsekggyps9[address] [place], [place] [address]Dr. Chrissy Frazier Urea nitrogen [Mass/Vol] 14.0 mg/dL Normal 7.0-18.0 [facility] Comment on above: Performed By: #### C MP ####[facility] Ajdtfjvsur[address] [place], [place] [address]Dr. Chrissy Frazier Urea nitrogen/Creatinine [Mass ratio] 11.1 mg/mg Normal [facility] Comment on above: Performed By: #### C MP ####[facility] Zztovxlgup99[address] [place], [place] [address]Dr. Chrissy Frazier CBC W MANUAL DIFFon 03-27-20 22 ATYPICAL LYMPH # Normal [facility] Comment on above: Performed By: #### C COLTENMAN ####[facility] Dfsnbphepn4423 [place] [address]Dr. Chrissy Frazier ATYPICAL LYMPH % Normal [facility] Comment on above: Performed By: #### C BCMAN ####[facility] Kllulzstaf1464 [place] [address]Dr. Chrissy Frazier BAND # 0.0 103/ul Normal 0.0-0.3 [facility] Comment on above: Performed By: #### C BCMAN ####[facility] Bvkeyjwikt96[address] [place], [place] [address]Dr. Chrissy Frazier BAND % 0 % Normal 0-5 [facility] Comment on above: Performed By: #### C ANTONETTE ####[facility] Aezaheucuq[address] [place], [place] [address]Dr. Chrissy Frazier BASOM # 0.00 103/ul Normal 0.00-0.10 [facility] Comment on above: Performed By: #### C BCLEANDRO ####[facility] Kdrdxlvwcb2778 [place] [address]Dr. Chrissy Frazier BASOM % 0.0 % Critically low 0.2-2.0 [facility] Comment on above: Performed By: #### C BCLEANDRO ####[facility] Hyzlqfmtpi5239 [place] [address]Dr. Chrissy Frazier BLAST # Normal [facility] Comment on above: Performed By: #### C BCLEANDRO ####[facility] Wbdnxjsyhm4958 [place] [address]Dr. Chrissy Frazier BLAST % Normal [facility] Comment on above: Performed By: #### C ANTONETTE ####[facility] Oipjgrosll6[address] [place], [place] [address]Dr. Chrissy Frazier CORRECTED WBC Normal 4.0-11.0 [facility] Comment on above: Performed By: #### C ANTONETTE ####[facility] Qzdsmllydp7008 [place] [address]Dr. Chrissy Frazier EOS # 0.00 103/ul Normal 0.00-0.70 [facility] Comment on above: Performed By: #### C ANTONETTE ####[facility] Hyckgknufm12[address] [place], [place] [address]Dr. Chrissy Frazier EOS% 0.0 % Critically low 0.9-7.0 The [facility] Comment on above: Performed By: #### C BCLEANDRO ####[facility] Bmbdbzrtzd5454 [place] [address]Dr. Chrissy Frazier HCT 47.3 % Normal 42.0-54.0 [facility] Comment on above: Performed By: #### C ANTONETTE ####[facility] Uvtoqxvaaw[address] [place], [place] [address]Dr. Chrissy Frazier HGB 16.4 g/dl Normal 14.0-18.0 [facility] Comment on above: Performed By: #### C ANTONETTE ####[facility] Ndganztiau8852 [place], [place] [address]Ov. Chrissy Frazier LYMPHM # 2.31 103/ul Normal 1.20-3.80 [facility] Comment on above: Performed By: #### C ANTONETTE ####[facility] Wvqbkydzuv1160 [place], [place] [address]Jr. Chrissy Frazier LYMPHM% 9.0 % Critically low 20.5-60.0 [facility] Comment on above: Performed By: #### C ANTONETTE ####[facility] Colmasyvdu3948 [place], [place] [address]Mz. Chrissy Frazier MCH 28.6 pg Normal 25.9-34.0 [facility] Comment on above: Performed By: #### C ANTONETTE ####[facility] Wejwhvylvo0873 [place], [place] [address]Ow. Chrissy Frazier MCHC 34.7 g/dl Normal 29.9-35.2 [facility] Comment on above: Performed By: #### C ANTONETTE ####[facility] Bmjdwnuryi5185 [place], [place] [address]Sr. Chrissy Frazier MCV 82.4 fL Normal 80.0-94.0 [facility] Comment on above: Performed By: #### C ANTONETTE ####[facility] Tgvtmprcxi4286 [place], [place] [address]Es. Chrissy Frazier METAMYELOCYTE # Normal [facility] Comment on above: Performed By: #### C ANTONETTE ####[facility] Zwboimdddd0413 [place], [place] [address]Tw. Chrissy Frazier METAMYELOCYTE % Normal [facility] Comment on above: Performed By: #### C ANTONETTE ####[facility] Yczvkjmaze4574 [place], [place] [address]Sp. Chrissy Frazier MONOM# 3.85 103/ul Critically high 0.30-0.80 [facility] Comment on above: Performed By: #### C ANTONETTE ####[facility] Biqtrpnscc5290 [place], [place] [address]Ex. Chrissy Frazier MONOM% 15.0 % Critically high 1.7-12.0 [facility] Comment on above: Performed By: #### C ANTONETTE ####[facility] Igbrfrcgkr4068 [place] [phone]. Chrissy Frazier MPV 10.6 fL Normal 9.5-13.5 [facility] Comment on above: Performed By: #### C ANTONETTE ####[facility] Xtydhnorsf3564 [place] [phone]. Chrissy Frazier MYELOCYTE # Normal [facility] Comment on above: Performed By: #### C ANTONETTE ####[facility] Cldbauuhec8970 [place] [phone]. Chrissy Frazier MYELOCYTE % Normal [facility] Comment on above: Performed By: #### C ANTONETTE ####[facility] Obbnjdtlzm9946 [place] [phone]. Chrissy Frazier NRBC Normal [facility] Comment on above: Performed By: #### C ANTONETTE ####[facility] Ahuyirqlhq9457 [place] [phone]. Chrissy Frazier PLT 471 103/ul Critically high 150-450 [facility] Comment on above: Performed By: #### C ANTONETTE ####[facility] Fxctmoopqf8136 [place] [phone]. Chrissy Frazier RBC 5.74 106/ul Normal 4.70-6.10 [facility] Comment on above: Performed By: #### C ANTONETTE ####[facility] Jpwfyxyuvk7821 [place] [phone]. Chrissy Frazier RDW 13.7 % Normal 11.0-15.0 [facility] Comment on above: Performed By: #### C ANTONETTE ####[facility] Iurcwedqhd7239 [place] [phone]. Chrissy Frazier SEG # 19.53 103/ul Critically high 1.40-6.50 [facility] Comment on above: Performed By: #### C ANTONETTE ####[facility] Ggbwohwdmn8649 [place] [id number]. Chrissy Frazier SEG % 76.0 % Critically high 43.0-75.0 [facility] Comment on above: Performed By: #### C BCMAN ####[facility] Hmtaghvexy0978 [place] [address]Dr. Tishrowan Frazier TOXIC GRANULATION SLIGHT Normal [facility] Comment on above: Result Comment: few vacoules Performed By: #### C BCMAN ####[facility] Cffzaqjice6264 [place] [address]Dr. Tishrowan Frazier WBC 25.7 103/ul Critically high 4.0-11.0 [facility] Comment on above: Performed By: #### C BCMAN ####[facility] Cwngthvfja7268 [place] [address]Dr. Chrissy Frazier LACTATE/LACTIC ACIDon 2021 Lactate [Moles/Vol] 2.4 mmol/L Critically high 0.4-1.9 [facility] Comment on above: Performed By: #### L ACT ####[facility] Gpcfuthwsc94[address] [place], [place] [address]Dr. Chrissy Frazier Lactate [Moles/Vol] 3.5 mmol/L Critically high 0.4-1.9 [facility] Comment on above: Performed By: #### L ACT ####[facility] Qkpfjbofrc[address] [place], [place] [address]Dr. Chrissy Frazier LIPASEon 03-27-2022 Lipase [Catalytic activity/Vol] 43.0 U/L Critically low 73.0-393.0 [facility] Comment on above: Performed By: #### C MANA LIPA ####[facility] Pcaynpkbgf1402 [place] [address]Dr. Chrissy Frazier PROF 14(COMP METB)on 022 Albumin [Mass/Vol] 4.7 g/dL Normal 3.4-5.0 [facility] Comment on above: Performed By: #### C MANA LIPA ####[facility] Wdeoeshdvp32[address] [place], [place] [address]Dr. Chrissy Frazier Albumin/Globulin [Mass ratio] 1.1 {ratio} Normal [facility] Comment on above: Performed By: #### C MP, LIPA ####[facility] Bbocbatvvy1288 [place] [address]Dr. Chrissy Frazier ALP [Catalytic activity/Vol] 69 U/L Normal 46-116 [facility] Comment on above: Performed By: #### C MP, LIPA ####[facility] Mbkcdkgfuh0861 [place] [address]Dr. Chrissy Frazier ALT [Catalytic activity/Vol] 47 U/L Normal 16-63 [facility] Comment on above: Performed By: #### C MP, LIPA ####[facility] Nbglsuacni0258 [place] [address]Dr. Chrissy Frazier Anion gap [Moles/Vol] 23.2 mmol/L Normal [facility] Comment on above: Performed By: #### C MP, LIPA ####[facility] Anikjqucww7[address] [place], [place] [address]Dr. Chrissy Frazier AST [Catalytic activity/Vol] 23 U/L Normal 15-37 [facility] Comment on above: Performed By: #### C MP, LIPA ####[facility] Jlgwpsbpoc676[address] [place], [place] [address]Dr. Chrissy Frazier Bilirubin [Mass/Vol] 0.7 mg/dL Normal 0.2-1.0 [facility] Comment on above: Performed By: #### C MP, LIPA ####[facility] Mgjjtmwwhz687[address] [place], [place] [address]Dr. Chrissy Frazier Calcium [Mass/Vol] 9.2 mg/dL Normal 8.5-10.1 [facility] Comment on above: Performed By: #### C MP, LIPA ####[facility] Xefjkzjkfz9499 [place] [address]Dr. Chrissy Freddie Chloride [Moles/Vol] 97 mmol/L Critically low 98-107 [facility] Comment on above: Performed By: #### C MP, LIPA ####[facility] Djvmigoqbm4663 [place] [address]Dr. Tishrowan Frazier CO2 [Moles/Vol] 18.2 mmol/L Critically low 21.0-32.0 [facility] Comment on above: Performed By: #### C MP, LIPA ####[facility] Mwvouermen2916 [place] [address]Dr. Tishrowan Frazier Creatinine [Mass/Vol] 1.77 mg/dL Critically high 0.70-1.30 [facility] Comment on above: Performed By: #### C MP, LIPA ####[facility] Kafobpjtna[address] [place], [place] [address]Dr. Chrissy Freddie EGFR-AF ESTONIAN 54 mL/min/1.73m2 Critically low >=60 [facility] Comment on above: Performed By: #### C MP, LIPA ####[facility] Aehtryvxdz90[address] [place], [place] [address]Dr. Chrissy Frazier EGFR-NON AF ESTONIAN 45 mL/min/1.73m2 Critically low >=60 [facility] Comment on above: Performed By: #### C MP, LIPA ####[facility] Lsltylzpnn027[address] [place], [place] [address]Dr. Tishrowan Frazier Globulin (S) [Mass/Vol] 4.4 g/dL Normal [facility] Comment on above: Performed By: #### C MP, LIPA ####[facility] Xoiqedabtt489[address] [place], [place] [address]Dr. Tishrowan Frazier Glucose [Mass/Vol] 131 mg/dL Critically high 74-106 [facility] Comment on above: Performed By: #### C MP, LIPA ####[facility] Cmfudglsfu505[address] [place], [place] [address]Dr. Tishrowan Frazier Potassium [Moles/Vol] 3.4 mmol/L Critically low 3.5-5.1 [facility] Comment on above: Performed By: #### C MP, LIPA ####[facility] Iplvamokkt[address] [place], [place] [address]Dr. Chrissy Frazier Protein [Mass/Vol] 9.1 g/dL Critically high 6.4-8.2 [facility] Comment on above: Performed By: #### C MP, LIPA ####[facility] Ercmxkqqby2047 [place] [phone]. Chrissy Frazier Sodium [Moles/Vol] 135 mmol/L Critically low 136-145 [facility] Comment on above: Performed By: #### C MANA, OSWALD ####[facility] Vtygydaofu1897 [place], [place] [address]Hr. Chrissy Frazier Urea nitrogen [Mass/Vol] 19.0 mg/dL Critically high 7.0-18.0 [facility] Comment on above: Performed By: #### C MANA, OSWALD ####[facility] Vpxrprlscq7258 [place] [phone]. Chrissy Frazier Urea nitrogen/Creatinine [Mass ratio] 10.7 mg/mg Normal [facility] Comment on above: Performed By: #### C MANA, OSWALD ####[facility] [address]jgkzsxqcf[address] [place], [place] [address]Dr. Chrissy Frazier BMPon 11-03-2020 Anion gap [Moles/Vol] 14 mmol/L Normal 6-16 [facility] Comment on above: Performed By: #### 2 [id number], [id number], [id number] #### [facility] [address] [place] [address] Calcium [Mass/Vol] 9.0 mg/dL Normal 8.9-11.1 [facility] Comment on above: Performed By: #### 2 145060, [id number], [id number] #### [facility] [address] [place] [address] Chloride [Moles/Vol] 104 mmol/L Normal 101-111 [facility] Comment on above: Performed By: #### 2 665971, 6475639, [id number] #### [facility] [address] [place] [address] CO2 [Moles/Vol] 21 mmol/L Normal 21-31 [facility] Comment on above: Performed By: #### 2 174779, [id number], [id number] #### [facility] [address] [place] [address] Creatinine [Mass/Vol] 1.3 mg/dL Normal 0.5-1.3 [facility] Comment on above: Performed By: #### 2 676439, [id number], [id number] #### [facility] [address] [place] [address] Glucose [Mass/Vol] 111 mg/dL Normal 55-199 [facility] Comment on above: Result Comment: If t his glucose result represents a fasting glucose, interpretation should refer to the following reference range: 55-99 mg/dL Performed By: #### 2 525723, 6475211, [id number] #### [facility] [address] [place] [address] Potassium [Moles/Vol] 2.9 mmol/L Low 3.5-5.3 [facility] Comment on above: Performed By: #### 2 147024, 6548076, [id number] #### [facility] [address] [place] [address] Sodium [Moles/Vol] 136 mmol/L Normal 135-145 [facility] Comment on above: Performed By: #### 2 841548, 5147020, [id number] #### [facility] [address] [place] [address] Urea nitrogen [Mass/Vol] 14 mg/dL Normal 5-21 [facility] Comment on above: Performed By: #### 2 719608, 0259919, [id number] #### [facility] [address] [place] [address] Urea nitrogen/Creatinine [Mass ratio] 11 No Units Normal 10-20 [facility] Comment on above: Performed By: #### 2 019341, 1830778, [id number] #### [facility] [address] [place] [address] Lipase Levelon 11-03-2020 Lipase [Catalytic activity/Vol] 66 unit/L High -58 [facility] Comment on above: Performed By: #### 2 228817, 8279636, [id number] #### [facility] [address] [place] [address] Physician Orderon 11-03-2020 Physician Order [id number] 3#1.00CD:127 Normal [facility] eGFRon 11-03-2020 GFR/1.73 sq M predicted among blacks MDRD (S/P/Bld) [Vol rate/Area] mL/min/{1.73_m2} Normal >=59 [facility] Comment on above: Order Comment: Order added by Discern Expert. Result Comment: eGFR is race adjusted. AA=. Performed By: #### 2 121734, 5695909, [id number] #### [facility] [address] [place] [address] GFR/1.73 sq M predicted among non-blacks MDRD (S/P/Bld) [Vol rate/Area] mL/min/{1.73_m2} Normal >=59 [facility] Comment on above: Order Comment: Order added by Discern Expert. Result Comment: Manager Golf lindsay kidney disease could be indicated at eGFR's of less than 60 mL/min/1.73m2. Kidney failure is indicated at less than 15 mL/min/1.73m2. Performed By: #### 2 [id number] #### [facility] [address] [place] [address] Encounters Encounter Date Encounter Type Care Provider Facility Start: 03-07-2024 End: 03-07-2024 ambulatory TUNG MCCOY Not Available Start: 03-30-2023 ambulatory Luis Angel Muniz cility:[facility] Start: 01-03-2023 End: 01-04-[address] MELODY MARIO . Facility:[facility] Start: 01-03-2023 End: 01-04-2023 ambulatory RAQUEL BANKS Facility:[facility] Start: 12-29-2022 End: 12-30-[address] MELODY MARIO . Facility:[facility] Start: 12-13-2022 End: 12-14-2022 ambulatory RAQUEL BANKS [facility] Start: 11-24-2022 End: 11-24-2022 ambulatory RAQUEL [facility] Start: 11-16-2022 End: 11-17-[address] MELODY [...] Date Payer Category Payer Self-pay 1990 Unknown [id number] .16.84 [id number] 1990 Unknown [id number] .16.84 [id number] 1990 Unknown [id number] 2.16.84 0.1.441646.3.579.2.593 1990 Unknown [id number] .16.84 0.1.804021.3.579.259 1990 Unknown [id number] .16.84 0.1.456968.3.579.2.593 1990 Unknown [id number] .16.84 0.1.021372.3.579.2.593 1990 Unknown [id number] 2.16.84 0.1.868199.3.579.2.593 1990 Unknown [id number] 2.16.84 0.1.085281.3.579.2.593 1990 Unknown [id number] 2.16.84 0.1.485540.3.579.2.593 1990 Unknown [id number] 2.16.84 0.1.144543.3.579.2.593 1990 Unknown [id number] 2.16.84 0.1.539690.3.579.2.593 1990 Unknown [id number] 2.16.84 0.1.831653.3.579.2.593 1990 Unknown [id number] 2.16.84 0.1.685133.3.579.2.593 1990 Unknown [id number] 2.16.84 0.1.826533.3.579.2.1259 1959 Private Health Insurance [id number] Unknown [id number] 2.16.8 [id number] Progress note 11-24-2022 Note Date & Type [...] report that his father had a fatal FL at the age of 54. Stress test [...] factor modification -Plan (more content not included)... [facility] Progress note 11-24-2022 Note Date & [...] All other systems reviewed and are negative. [facility] Summary Purpose Family History No Family [...] section and content) DATE CREATED AUTHOR 11/04/2020 [facility] DATE CREATED AUTHOR AUTHOR'S ORGANIZ ATION 01/08/2023 [facility] DATE CREATED AUTHOR AUTHOR'S ORGANIZ ATION 02/07/2023 [facility] DATE CREATED AUTHOR AUTHOR'S ORGANIZ ATION 04/01/2023 [facility] DATE CREATED AUTHOR AUTHOR'S ORGANIZ ATION 03/08/2024 [facility] EPIC FOR RECORDS PERTAINING TO [...] BE BASED ON THE PRIMARY CLINICAL RECORDS. [employer] provides no warranty or guarantee of the accuracy or completeness of information in this document.
[2024-03-19 06:45] LABS: Basophils Absolute Auto 0.1 10^3/uL (0.0-0.1); Basophils Percent Auto 0.6 % (0.2-2.0); Eosinophils Absolute Auto 0.9 10^3/uL (0.0-0.7); Eosinophils Percent Auto 6.4 % (0.9-7.0); Hematocrit 42.8 % (42.0-54.0); Immature Granulocytes Abs Auto 0.04 10^3/uL (0.00-0.03); Immature Granulocytes Pct Auto 0.3 % (0.0-0.5); Lymphocytes Absolute Auto 5.2 10^3/uL (1.2-3.8); Lymphocytes Percent Auto 37.5 % (20.5-60.0); Mean Corpuscular HGB Conc 32.7 g/dL (29.9-35.2); Mean Corpuscular Hemoglobin 28.1 pg (25.9-34.0); Mean Corpuscular Volume 85.9 fL (80.0-94.0); Mean Platelet Volume 10.4 fL (9.5-13.5); Monocytes Absolute Auto 0.8 10^3/uL (0.3-0.8); Monocytes Percent Auto 5.7 % (1.7-12.0); Neutrophils Absolute Auto 6.9 10^3/uL (1.4-6.5); Neutrophils Percent Auto 49.5 % (43.0-75.0); Platelet Count 346 10^3/uL (150-450); Red Blood Count 4.98 10^6/uL (4.70-6.10); Red Cell Distribution Width 14.2 % (11.0-15.0); White Blood Count 13.9 10^3/uL (4.0-11.0)
[2024-03-19 06:58] LABS: Glucometer 87 mg/dL (74-106)
[2024-03-19] MEDS: LACTATED RINGER'S SOLUTION 1,000 ML 50 ML IV ×2 (07:09→09:18)
[2024-03-19] MEDS: SCOPOLAMINE 1 MG/3 DAYS TRANSDERM PATCH 1 PATCH TD (07:10)
[2024-03-19] MEDS: FAMOTIDINE/PF 20 MG/2 ML VIAL IV (07:11)
[2024-03-19] MEDS: CEFAZOLIN SODIUM/DEXTROSE,ISO 2 GM/50 ML PIGGYBACK IV (07:33)
--- NOTE | 2024-03-19 07:38 | PC.NURSE ---
0722 PATIENT WAS POSITIONED ON LEFT SIDE, PHYSICIAN EXPLAINED PROCEDURE 0724 TIME OUT PERFORMED AND 2 OF VERSED AND 4 OF ZOFRAN GIVEN. PATIENT WAS CLEANSED BEHIND THE RIGHT KNEE PRIOR TO BEGINNING BLOCK. NEEDLE INSERTED, PHYSICIAN LOCATED AREAS TO BE BLOCK WITH ULTRASOUND. PICTURE WAS TAKEN AND INJECTION OF MEDICATIONS BEGAN UNTIL ALL MEDICATION WAS INJECTED. PATIENT TOLERATED WELL. PROCEDURE COMPLETED AT 0730.
[2024-03-19] MEDS: BUPIVACAINE HCL 0.5% PF 50 MG/10 ML VIAL INJ (08:48)
--- NOTE | 2024-03-19 08:53 | XR_ITS ---
The [address] [address] Patient Name: PAULINA CHARLES MRN: [id number] date: 1990 Sex: M Assigned Patient Location: [facility] [[email or web address] Current Patient Location: Accession/Order Number: [id number] Exam Date: 03/19/2024 09:35 Report Date: 03/20/2024 06:32 At the request of: SHALINI IVAN Procedure: XR foot RT min 3V PROCEDURE: XR foot RT min 3V HISTORY: naviculocuneiform DJD COMPARISON: XR foot right 01/12/2024 FINDINGS: BONES:Mechanical fusion of the navicular-medial cuneiform joint via 2 lag screws. Bone staple; no appreciable hardware fracture or loosening. SOFT TISSUES:No visible soft tissue swelling. Images were obtained through cast material. EFFUSION:None visible. OTHER: Negative. XR/XR foot RT min 3V IMPRESSION: 1. Mechanical fusion of the navicular-medial cuneiform joint without evidence of hardware fracture. Electronically authenticated by: KYREE DOHERTY Date: 03/20/2024 06:32
--- NOTE | 2024-03-19 08:56 | PM.ORONB ---
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 He presented to my office relating to worsening pain despite NSAIDs such as diclofenac and meloxicam, immobilization in a cam boot ice, rest and shoe and activity modification. X-rays demonstrated mild to moderate degenerative changes isolated to the medial naviculocuneiform joint and the CT confirms an old fracture of the dorsal distal medial navicular with cystic formation. Due to his failure to respond to nonsurgical care patient wished to undergo the above procedure Intraoperative findings: Discoloration of the dorsal navicular noting old avulsion fracture which was excised. Both the navicular and medial cuneiform or debris until healthy bleeding bone. Bone was otherwise within normal limits. Stable fixation obtained Procedure in detail: Patient was identified in pre op and consent was reviewed. Correct side and site were identified and marked. Pre-op antibiotics were started. Patient was brought to OR suite and place on table in a supine position. General anesthesia was administered. Tourniquet applied. Operative extremity was prepped and draped in usual sterile fashion. Formal time-out was performed and the foot/ankle were exsanguinated and tourniquet inflated. With the aid of fluoroscopy incision was placed between the tibialis anterior and extensor hallucis longus tendons over the dorsal medial hind foot and extended to the base of the 1st metatarsal. Comminution sharp and blunt dissection with all bleeders being coagulated gained access to the dorsal aspect of the naviculocuneiform joint. the intermediate naviculocuneiform joint was inspected and was without significant degenerative changes therefore was not included in the fusion. The medial naviculocuneiform joint was debrided to healthy bleeding bone and the joint was prepared for fusion with rongeurs, curettes and osteotomes. The joint was then drilled with 2.0 mm drill bit and the surgical site was irrigated with copious saline. Allogenic bone graft was impacted into the fusion site and a guidewire was placed from the dorsal medial aspect of the medial cuneiform crossing into the navicular. A 4.0 mm cannulated screw was placed accordingly noting compression across the fusion site. An additional guidewire was placed from the dorsal medial aspect of the navicular crossing the 1st screw. An additional 4.0 mm cannulated screw was placed accordingly noting added stability. To enhance stability of the joint a 20 mm staple was placed from the dorsal medial aspect according to the residue furnace operator's standard directions. The joint was stable when stressed under fluoroscopic guidance. ankle and hindfoot range of motion was within normal limits. Surgical site was irrigated and the incision was closed in layers. Tourniquet was deflated with a prompt hyperemic response A dry sterile dressing consisting of Xeroform on the incisions followed by 4 x 4 gauze, ABDs, and Kerlix were applied. Multiple layers of cast padding were then applied to ensure all bony prominences were well-padded. A plaster posterior splint was then applied which was held in place by Dante wraps. Capillary refill time to all digits was evaluated and had appropriate response. Postoperative plan: Discharge home under family's care Post op instructions provided verbally and written prescription(s) were placed in chart NWB operative foot/ankle x8 wks Follow-up in 1 week Implants: vilex 4.0 mm cannulated screws x2 vilex 20 mm staple Proteios & 2.5 cc of ConCelltrate bone allograft Anesthesia: regional and General-LMA Surgeon: Dwayne Michele Estimated blood loss (mL): 10 Pathology: none sent Condition: stable Disposition: PACU
[2024-03-19] MEDS: MEPERIDINE HCL/PF 25 MG/ML VIAL IVP (09:39)
[2024-03-19 09:41] LABS: Glucometer 104 mg/dL (74-106)
[2024-03-19] MEDS: OXYCODONE HCL 5 MG TABLET 10 MG PO (09:56)
== END 2024-03-19 10:48 | disposition home or self-care (01) ==
PROVIDERS: PCP Family Medicine; Visit Provider Podiatrist Foot & Ankle Surgery
PROC: (CPT 01480; principal; 2024-03-19 07:30)
DX: M19.171 Post-traumatic osteoarthritis, right ankle and foot (principal); S92.251 Displaced fracture of navicular [scaphoid] of right foot; Z86.16 Personal history of COVID-19; K21.9 Gastro-esophageal reflux disease without esophagitis; F41.0 Panic disorder [episodic paroxysmal anxiety]; F32.A Depression, unspecified; F43.10 Post-traumatic stress disorder, unspecified; F41.9 Anxiety disorder, unspecified; F17.290 Nicotine dependence, other tobacco product, uncomplicated; M21.6X1 Other acquired deformities of right foot; Z79.899 Other long term (current) drug therapy; E66.01 Morbid (severe) obesity due to excess calories; Z68.41 Body mass index [BMI] 40.0-44.9, adult; G47.33 Obstructive sleep apnea (adult) (pediatric); E78.00 Pure hypercholesterolemia, unspecified; E11.9 Type 2 diabetes mellitus without complications
CPT/HCPCS: 01480; 28740; 36415; 64445; 73630; 76000; 82948; 85025; C1713; J1094; J1170; J2704

== ENCOUNTER 2024-04-24 11:32 | Outpatient (OUT) | payer OTHER, SELFPAY ==
--- NOTE | 2024-04-24 | XR_ITS ---
The [address] [address] Patient Name: PAULINA CHARLES MRN: [id number] date: 1990 Sex: M Assigned Patient Location: Current Patient Location: Accession/Order Number: [id number] Exam Date: 04/24/2024 11:35 Report Date: 04/25/2024 13:07 At the request of: SHALINI IVAN Procedure: XR foot RT min 3V PROCEDURE: XR foot RT min 3V HISTORY: RIGHT FOOT PAIN COMPARISON: XR foot right 03/19/2024 FINDINGS: BONES:Mechanical fusion of the medial cuneiform and talus via 2 lag screws and a bone staple; no hardware fracture or loosening. No acute bone abnormality, significant joint space narrowing, or articular surface irregularity. SOFT TISSUES:No visible soft tissue swelling. EFFUSION:None visible. OTHER: Negative. XR/XR foot RT min 3V IMPRESSION: 1. Stable surgical changes without evidence of hardware failure or change in alignment. Electronically authenticated by: KYREE DOHERTY Date: 04/25/2024 13:07
== END 2024-04-24 11:33 | disposition home or self-care (01) ==
LOC: EC 11:32
PROVIDERS: PCP Family Medicine; Visit Provider Podiatrist Foot & Ankle Surgery
DX: M19.071 Primary osteoarthritis, right ankle and foot (principal); S92.251 Displaced fracture of navicular [scaphoid] of right foot
CPT/HCPCS: 73630

== ENCOUNTER 2024-05-22 11:14 | Outpatient (OUT) | payer OTHER, SELFPAY ==
--- NOTE | 2024-05-22 | XR_ITS ---
The [address] [address] Patient Name: PAULINA CHARLES MRN: [id number] date: 1990 Sex: M Assigned Patient Location: Current Patient Location: Accession/Order Number: [id number] Exam Date: 05/22/2024 11:35 Report Date: 05/23/2024 13:44 At the request of: SHALINI IVAN Procedure: XR foot RT min 3V PROCEDURE: XR foot RT min 3V HISTORY: RIGHT FOOT PAIN COMPARISON: XR foot right 04/24/2024 FINDINGS: BONES:Prior mechanical fusion of the medial cuneiform and navicular bone the 2 lag screws and bone staple. No appreciable hardware fracture loosening. No bone fracture or dislocation. SOFT TISSUES:No visible soft tissue swelling. EFFUSION:None visible. OTHER: Negative. XR/XR foot RT min 3V IMPRESSION: 1. Stable surgical changes without evidence of hardware failure or change in alignment. Electronically authenticated by: KYREE DOHERTY Date: 05/23/2024 13:44
--- OUTSIDE RECORDS SUMMARY | 2024-05-22 11:20 | XMS_ITS | CCD ---
Author Organization [facility] CliniSyfl Care Team Providers Care Publishing Systems Analyst Name Role Phone RAQUEL BANKS Referring Unavailable DARREN MOHAMAAmelie Attending Unavailable HOY ., DR OLIVER Consulting Unavailable HOY ., DR OLIVER Attending Unavailable HOY ., DR OLIVER Admitting Unavailable HOY ., DR OLIVER Primary Care Unavailable HAY ., DR PIMENTEL Consulting Unavailable HOY ., DR OLIVER Consulting Unavailable HOY ., DR OLIVER Attending Unavailable HOY ., DR OLIVER Admnarcisa Unavailable HOY ., DR OLIVER Primary Care Unavailable REINECK, DR CHARISSA Buckley Consulting Unavailabl e HOY [...] Primary Care Unavailable SHYANN CM Consulting Unavailable RAQUEL BANKS Consulting Unavailable HOY ., DR OLIVER Primary Care Unavailable ALGHOCASSY, MOHAMAD Attending Unavailable DARREN, DEBBIEAMAAmelie Admitting Unavailable HOTree ., DR OLIVER Consulting Unavailable HOY ., [...] Unavailable HOY ., DR OLIVER Admitting Unavailable WEST, DR RAPHAEL Lemon Consulting Unavailable Michaels, K [...] Primary Care Unavailable TUNG MCCOY Attending Unavailable TUNG MCCOY Attending Unavailable Allergies Allergy Classification Reported Allergen(s) Allergy Type Date of Onset Reaction(s) Facility (3 sources) Penicillins; Translations: [PENICILLINS] Propensity to adverse reactions to drug (disorder) 09-28-20 [facility] Repository (1 source) Sulfamethoxazole / Trimethoprim; Translations: [SULFAMETHOXAZOLE-TR IMETHOPRIM] Drug Allergy 01-27-20 [facility] Repository (1 source) Clarithromycin Drug Allergy [facility] Repository (1 source) Sulfamethoxazole / Trimethoprim Drug Allergy 05-27-20 17 [facility] Repository (1 source) Sulfamethoxazole Drug Allergy 03-20-20 [facility] Repository (1 source) Trimethoprim Drug Allergy 03-20-20 [facility] Repository Problems Active Problems Problem Classification [...] 11-16-2022 Ep[facility] Other aftercare (1 source) 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 Chrissy Frazier AMYLASEon 01-04-2023 Amylase [Catalytic activity/Vol] 34 U/L Normal 25-115 [facility] Comment on above: Performed By: #### A MY ####[facility] Komfoxpcla[address] [place], [place] [address]Dr. Chrissy Freddie CBC AUTO DIFFon 01-04-2023 BASO # 0.0 103/ul Normal 0.0-0.1 [facility] Comment on above: Performed By: #### C BC ####[facility] Dbqlqgwwet[address] [place], [place] [address]Dr. Chrissy Frazier Basophils/100 WBC (Bld) 0.1 % Critically low 0.2-2.0 [facility] Comment on above: Performed By: #### C BC ####[facility] Coheimycji[address] [place], [place] [address]Dr. Tishrowan Frazier EO # 0.0 103/ul Normal 0.0-0.7 [facility] Comment on above: Performed By: #### C BC ####[facility] Usavwwmqir46[address] [place], [place] [address]Dr. Chrissy Frazier Eosinophils/100 WBC (Bld) 0.1 % Critically low 0.9-7.0 [facility] Comment on above: Performed By: #### C BC ####[facility] Vvbzxwvrlz[address] [place], [place] [address]DrNancy Frazier Erythrocyte distribution width (RBC) [Ratio] 14.0 % Normal 11.0-15.0 [facility] Comment on above: Performed By: #### C BC ####[facility] Rqraaovhsi[address] [place], [place] [address]Dr. Chrissy Frazier Hematocrit (Bld) [Volume fraction] 40.4 % Critically low 42.0-54.0 [facility] Comment on above: Performed By: #### C BC ####[facility] Phvepsprao[address] [place] [address]Dr. Chrissy Frazier Hemoglobin (Bld) [Mass/Vol] 13.8 g/dL Critically low 14.0-18.0 [facility] Comment on above: Performed By: #### C BC ####[facility] Hanhelygzn[address] [place] [address]Dr. Chrissy Freddie IG # 0.05 10e3/ul Critically high 0.00-0.03 [facility] Comment on above: Performed By: #### C BC ####[facility] Rmeqzdlcup1913 [place] [address]Dr. Tishrowan Frazier IG % 0.3 % Normal 0.0-0.5 [facility] Comment on above: Performed By: #### C BC ####[facility] Xslyxkazfn[address] [place], [place] [address]Dr. Chrissy Frazier LYMPH # 1.7 103/ul Normal 1.2-3.8 [facility] Comment on above: Performed By: #### C BC ####[facility] Zmbxlbyhqo54[address] [place] [address]Dr. Chrissy Freddie Lymphocytes/100 WBC (Bld) 11.9 % Critically low 20.5-60.0 [facility] Comment on above: Performed By: #### C BC ####[facility] Upxekicrzp[address] [place] [address]Dr. Chrissy Frazier MANUAL DIFF REQ NO Normal [facility] Comment on above: Performed By: #### C BC ####[facility] Xlbeuffjvo[address] [place] [id number]. Chrissy Freddie MCH (RBC) [Entitic mass] 29.3 pg Normal 25.9-34.0 [facility] Comment on above: Performed By: #### C BC ####[facility] Rqebruwrfe2703 [place] [id number]. Tishrowan Frazier MCHC (RBC) [Mass/Vol] 34.2 g/dL Normal 29.9-35.2 [facility] Comment on above: Performed By: #### C BC ####[facility] Pcrzgugunh[address] [place] [id number]. Chrissy Frazier MCV (RBC) [Entitic vol] 85.8 fL Normal 80.0-94.0 [facility] Comment on above: Performed By: #### C BC ####[facility] Vaywhigrdn[address] [place] [id number]. Chrissy Freddie MONO # 0.6 103/ul Normal 0.3-0.8 [facility] Comment on above: Performed By: #### C BC ####[facility] Hnrrolidtd0843 [place] [address]Dr. Chrissy Freddie Monocytes/100 WBC (Bld) 4.2 % Normal 1.7-12.0 [facility] Comment on above: Performed By: #### C BC ####[facility] Fcndvokkxo[address] [place], [place] [address]Dr. Chrissy Frazier NEUT # 12.0 103/ul Critically high 1.4-6.5 [facility] Comment on above: Performed By: #### C BC ####[facility] [address]flqyy[address] [place], [place] [address]Dr. Tishrowan Frazier Neutrophils/100 WBC (Bld) 83.4 % Critically high 43.0-75.0 [facility] Comment on above: Performed By: #### C BC ####[facility] Hnlgxpgvai60[address] [place], [place] [address]Dr. Chrissy Freddie Platelet mean volume (Bld) [Entitic vol] 10.4 fL Normal 9.5-13.5 [facility] Comment on above: Performed By: #### C BC ####[facility] Subiarnpxk[address] [place], [place] [address]Dr. Chrissy Frazier PLT 313 103/ul Normal 150-450 [facility] Comment on above: Performed By: #### C BC ####[facility] Ttwmuewthv[address] [place] [id number]. Chrissy Frazier RBC 4.71 106/ul Normal 4.70-6.10 [facility] Comment on above: Performed By: #### C BC ####[facility] Slswwhldep99[address] [place] [id number]. Chrissy Frazier WBC 14.4 103/ul Critically high 4.0-11.0 [facility] Comment on above: Performed By: #### C BC ####[facility] Lzqasqkfrs[address] [place] [id number]. Chrissy Frazier CULTURE URINEon 01-04-2023 CULTURE URINE Culture Observations: NO GROWTH. Normal [facility] Comment on above: Performed By: #### U RCX ####[facility] Yihpynamhv[address] [place] [address]Dr. Chrissy Frazier DRUG SCREEN RAPID (URINE)on 01-04-2023 AMP Negative Normal NEGATIVE [facility] Comment on above: Performed By: #### D REYES, UAMIC ####[facility] Ffnibisjvc450[address] [place] [address]Dr. Chrissy Frazier BAR Negative Normal NEGATIVE [facility] Comment on above: Performed By: #### D REYES, UAMIC ####[facility] Rkwcfgozgg[address] [place] [address]Dr. Chrissy Frazier BUP Negative Normal NEGATIVE [facility] Comment on above: Performed By: #### D CHAYAD, UAMIC ####[facility] Kepzxhexjf060[address] [place] [address]Dr. Chrissy Frazier BZO Positive Abnormal NEGATIVE [facility] Comment on above: Performed By: #### D REYES, UAMIC ####[facility] Wbeuaiystk48[address] [place] [address]Dr. Chrissy Frazier LAUREN Negative Normal NEGATIVE [facility] Comment on above: Performed By: #### D REYES, UAMIC ####[facility] Lweztyqmvc25[address] [place] [address]Dr. Chrissy Frazier CUT-OFFS SEE BELOW Normal [facility] Comment on above: Result Comment: AMP [...] ng/mL Performed By: #### Amelie CHAMBERS, UAMIC ####[facility] Ddmdldohwj[address] [place], [place] [address]Dr. [facility] DRUG CUT HEADER DRUG CLASS TEST SYSTEM CUT-OFF CONCENTRATIONS ARE FOLLOWS: Normal [facility] Comment on above: Performed By: #### Amelie CHAMBERS UAMIC ####[facility] Icibakeqjk60[address] [place], [place] [address]Dr. Chrissy [facility] mAMP Negative Normal NEGATIVE [facility] Comment on above: Performed By: #### Amelie CHAMBERS UAMIC ####[facility] Hgrgbpkurb4[address] [place], [place] [address]Dr. [facility] MTD Negative Normal NEGATIVE [facility] Comment on above: Performed By: #### Amelie CHAMBERS, UAMIC ####[facility] Phroyuthho15[address] [place], [place] [address]Dr. [facility] OPI Negative Normal NEGATIVE [facility] Comment on above: Performed By: #### Amelie CHAMBERS, UAMIC ####[facility] Aijshanvpl017[address] [place], [place] [address]Dr. [facility] OXY Negative Normal NEGATIVE [facility] Comment on above: Performed By: #### Amelie CHAMBERS, UAMIC ####[facility] Yypqfxkcpk[address] [place], [place] [address]Dr. [facility] PCP Negative Normal NEGATIVE [facility] Comment on above: Performed By: #### Amelie CHAMBERS, UAMIC ####[facility] Fhwkxqbnrm13[address] [place], [place] [address]Dr. [facility] PPX Negative Normal NEGATIVE [facility] Comment on above: Performed By: #### D REYES UAMIC ####[facility] Qmybhycsnw023[address] [place] [address]Dr. Chrissy Frazier TCA Positive Abnormal NEGATIVE [facility] Comment on above: Performed By: #### D REYES UAMIC ####[facility] Pddulkgebj2646 [place] [address]Dr. Chrissy Frazier THC Positive Abnormal NEGATIVE [facility] Comment on above: Performed By: #### D REYES UAMIC ####[facility] Nkhnoqtyxj01[address] [place] [address]Dr. Chrissy Frazier LIPASEon 01-04-2023 Lipase [Catalytic activity/Vol] 57.0 U/L Critically low 73.0-393.0 [facility] Comment on above: Performed By: #### L IPA ####[facility] Vgutbgslxk[address] [place], [place] [address]Dr. Chrissy Frazier PROF 14(COMP METB)on 023 Albumin [Mass/Vol] 3.6 g/dL Normal 3.4-5.0 [facility] Comment on above: Performed By: #### C MP ####[facility] Qrznbztswq[address] [place], [place] [address]Dr. Chrissy Frazier Albumin/Globulin [Mass ratio] 1.0 {ratio} Normal [facility] Comment on above: Performed By: #### C MP ####[facility] Bftpxgmxot[address] [place], [place] [address]Dr. Chrissy Frazier ALP [Catalytic activity/Vol] 67 U/L Normal 46-116 [facility] Comment on above: Performed By: #### C MP ####[facility] Sucyfwzurs[address] [place], [place] [address]Dr. Chrissy Frazier ALT [Catalytic activity/Vol] 26 U/L Normal 16-63 [facility] Comment on above: Performed By: #### C MP ####[facility] Tighfqdbhd[address] [place] [address]Dr. Chrissy Frazier Anion gap [Moles/Vol] 16.3 mmol/L Normal [facility] Comment on above: Performed By: #### C MP ####[facility] Apvxnxwlve8940 [place] [id number]. Chrissy Frazier AST [Catalytic activity/Vol] 17 U/L Normal 15-37 [facility] Comment on above: Performed By: #### C MP ####[facility] Irqykveghn7464 [place] [id number]. Chrissy Frazier Bilirubin [Mass/Vol] 0.4 mg/dL Normal 0.2-1.0 [facility] Comment on above: Performed By: #### C MP ####[facility] Kbxqghjfok[address] [place], [place] [address]Dr. Chrissy Frazier Calcium [Mass/Vol] 8.7 mg/dL Normal 8.5-10.1 [facility] Comment on above: Performed By: #### C MP ####[facility] Dkviqfzjsg766[address] [place], [place] [address]Dr. Chrissy Frazier Chloride [Moles/Vol] 106 mmol/L Normal 98-107 [facility] Comment on above: Performed By: #### C MP ####[facility] Txeqfpqhlu[address] [place], [place] [address]Dr. Chrissy Frazier CO2 [Moles/Vol] 22.6 mmol/L Normal 21.0-32.0 [facility] Comment on above: Performed By: #### C MP ####[facility] Jmyoydtozj99[address] [place], [place] [address]Dr. Chrissy Frazier Creatinine [Mass/Vol] 0.99 mg/dL Normal 0.70-1.30 [facility] Comment on above: Performed By: #### C MP ####[facility] Vajrtlssyj[address] [place] [id number]. Chrissy Frazier EGFR-AF TUVALUAN >60 Normal >=60 [facility] Comment on above: Performed By: #### C MP ####[facility] Ekcktppzgu34[address] [place] [address]Dr. Chrissy Frazier EGFR-NON AF TUVALUAN >60 Normal >=60 [facility] Comment on above: Performed By: #### C MP ####[facility] Pombcpvmko8007 [place] [address]Dr. Chrissy Frazier Globulin (S) [Mass/Vol] 3.6 g/dL Normal [facility] Comment on above: Performed By: #### C MP ####[facility] Mazfrowige8417 [place] [address]Dr. Chrissy Frazier Glucose [Mass/Vol] 138 mg/dL Critically high 74-106 [facility] Comment on above: Performed By: #### C MP ####[facility] Hjabfcamlx8900 [place] [address]Dr. Chrissy Frazier Potassium [Moles/Vol] 3.9 mmol/L Normal 3.5-5.1 [facility] Comment on above: Performed By: #### C MP ####[facility] Rftlbtsigz8[address] [place], [place] [address]Dr. Chrissy Frazier Protein [Mass/Vol] 7.2 g/dL Normal 6.4-8.2 [facility] Comment on above: Performed By: #### C MP ####[facility] Lpfqaherct10[address] [place], [place] [address]Dr. Chrissy Frazier Sodium [Moles/Vol] 141 mmol/L Normal 136-145 [facility] Comment on above: Performed By: #### C MP ####[facility] Etwlmhcnid7[address] [place], [place] [address]Dr. Chrissy Frazier Urea nitrogen [Mass/Vol] 10.0 mg/dL Normal 7.0-18.0 [facility] Comment on above: Performed By: #### C MP ####[facility] Jrftssneqh883[address] [place], [place] [address]Dr. Chrissy Frazier Urea nitrogen/Creatinine [Mass ratio] 10.1 mg/mg Normal [facility] Comment on above: Performed By: #### C MP ####[facility] Tkhakednkn49[address] [place], [place] [address]Dr. Chrissy Frazier UA RANDOM W/MICROSCOPICon BACTERIA TRACE Abnormal NONE SEEN [facility] Comment on above: Performed By: #### D REYES, UAMIC ####[facility] Hprotaoehu[address] [place] [address]Dr. Chrissy Frazier Bilirubin Ql (U) Negative Normal NEGATIVE [facility] Comment on above: Performed By: #### Amelie CHAMBERS, UAMIC ####[facility] Grumtifcgz[address] [place], [place] [address]Dr. Chrissy Frazier CAST NONE SEEN Normal NONE SEEN [facility] Comment on above: Performed By: #### Amelie CHAMBERS, UAMIC ####[facility] Lufccunolg167[address] [place], [place] [address]Dr. Chrissy Frazier Clarity (U) CLEAR Normal CLEAR [facility] Comment on above: Performed By: #### Amelie CHAMBERS, UAMIC ####[facility] Wbiygtqhzc[address] [place], [place] [address]Dr. Chrissy Frazier Color (U) YELLOW Normal YELLOW [facility] Comment on above: Performed By: #### Amelie CHAMBERS, UAMIC ####[facility] Bgaqzottbw18[address] [place], [place] [address]Dr. Chrissy Frazier Crystals LM Nom (Urine sed) NONE SEEN Normal NONE SEEN [facility] Comment on above: Performed By: #### Amelie CHAMBERS, UAMIC ####[facility] Neeusantis4170[address] [place], [place] [address]Dr. Chrissy Frazier Epithelial cells LM Ql (Urine sed) NONE SEEN Normal NONE SEEN /RARE [facility] Comment on above: Performed By: #### Amelie CHAMBERS, UAMIC ####[facility] Mtvosikiue26[address] [place], [place] [address]Dr. Chrissy Frazier Glucose Ql (U) Negative Normal NEGATIVE [facility] Comment on above: Performed By: #### D REYES, UAMIC ####[facility] Wfjfsotpln[address] [place], [place] [address]Dr. Chrissy Frazier Hemoglobin Ql (U) Negative Normal NEGATIVE [facility] Comment on above: Performed By: #### Amelie CHAMBERS, UAMIC ####[facility] Fyybigwfxo75[address] [place], [place] [address]Dr. Chrissy Frazier Ketones Ql (U) 15 mg/dl Abnormal NEGATIVE [facility] Comment on above: Performed By: #### Amelie CHAMBERS UAMIC ####[facility] Krjbcqupbk28[address] [place] [address]Dr. Chrissy Frazier LEUKOCYTES Negative Normal NEGATIVE [facility] Comment on above: Performed By: #### Amelie CHAMBERS UAMIC ####[facility] Upvetkxkin5440 [place] [address]Dr. Chrissy Frazier MUCOUS NONE SEEN Normal NONE SEEN [facility] Comment on above: Performed By: #### Amelie CHAMBERS UAMIC ####[facility] Jljcvvtvwa2795 [place] [address]Dr. Chrissy Frazier Nitrite Ql (U) Negative Normal NEGATIVE [facility] Comment on above: Performed By: #### Amelie CHAMBERS UAMIC ####[facility] Eyytcyqzkk9666 [place] [address]Dr. Chrissy Frazier pH (U) 6.5 [pH] Normal 5-9 [facility] Comment on above: Performed By: #### Amelie CHAMBERS UAMIC ####[facility] Wwqolcjqci[address] [place], [place] [address]Dr. Chrissy Frazier RBC NONE SEEN Abnormal 0-2 [facility] Comment on above: Performed By: #### Amelie CHAMBERS UAMIC ####[facility] Btmufjgfpt[address] [place], [place] [address]Dr. Chrissy Frazier SPEC GRAVITY 1.020 Normal 1.005-<=1.025 [facility] Comment on above: Performed By: #### Amelie CHAMBERS UAMIC ####[facility] Rkweieerke[address] [place], [place] [address]Dr. Chrissy Frazier UA PROTEIN Negative Normal NEGATIVE/ TRACE [facility] Comment on above: Performed By: #### Amelie CHAMBERS UAMIC ####[facility] Dlgxlxczsg[address] [place], [place] [address]Dr. Chrissy Frazier Urobilinogen Qn (U) 0.2 {Estrellita'U}/dL Normal 0.2 - 1. 0 [facility] Comment on above: Performed By: #### Amelie CHAMBERS UAMIC ####[facility] Azaxdpktjl02[address] [place] [id number]. Chrissy Frazier WBC NONE SEEN Normal NONE SEEN [facility] Comment on above: Performed By: #### D REYES UAMIC ####[facility] Dobiqeacun[address] [place] [id number]. Chrissy Frazier AMMONIAon 01-03-2023 Ammonia (P) [Moles/Vol] 17 umol/L Normal 11-32 [facility] Comment on above: Performed By: #### A MM ####[facility] Nafyqbchii5[address] [place] [address]Dr. Chrissy Frazier AMYLASEon 01-03-2023 Amylase [Catalytic activity/Vol] 38 U/L Normal 25-115 [facility] Comment on above: Performed By: #### L IPA, TERRENCE, CMP, MG ####[facility] Aspuuzdqkf[address] [place] [address]Dr. Chrissy Frazier CBC AUTO DIFFon 01-03-2023 BASO # 0.1 103/ul Normal 0.0-0.1 [facility] Comment on above: Performed By: #### C BC ####[facility] Jannqsdgoo5[address] [place] [address]Dr. Chrissy Frazier Basophils/100 WBC (Bld) 0.4 % Normal 0.2-2.0 [facility] Comment on above: Performed By: #### C BC ####[facility] Tpfsqkswnb4554 [place] [address]Dr. Chrissy Frazier EO # 0.1 103/ul Normal 0.0-0.7 [facility] Comment on above: Performed By: #### C BC ####[facility] Csipulnhpx5880 [place] [address]Dr. Chrissy Frazier Eosinophils/100 WBC (Bld) 0.3 % Critically low 0.9-7.0 [facility] Comment on above: Performed By: #### C BC ####[facility] Sopazupaec035[address] [place] [address]Dr. Chrissy Frazier Erythrocyte distribution width (RBC) [Ratio] 13.7 % Normal 11.0-15.0 [facility] Comment on above: Performed By: #### C BC ####[facility] Pzmuxzjxdn40[address] [place] [address]Dr. Tishrowan Freddie Hematocrit (Bld) [Volume fraction] 46.1 % Normal 42.0-54.0 [facility] Comment on above: Performed By: #### C BC ####[facility] Utzvgyalkx6539 [place] [address]Dr. Chrissy Frazier Hemoglobin (Bld) [Mass/Vol] 15.4 g/dL Normal 14.0-18.0 [facility] Comment on above: Performed By: #### C BC ####[facility] Pzmdcmzdce[address] [place], [place] [address]Dr. Chrissy Frazier IG # 0.11 10e3/ul Critically high 0.00-0.03 [facility] Comment on above: Performed By: #### C BC ####[facility] Edjruukwhx[address] [place], [place] [address]Dr. Chrissy Frazier IG % 0.6 % Critically high 0.0-0.5 [facility] Comment on above: Performed By: #### C BC ####[facility] Kblkjissvg[address] [place], [place] [address]Dr. Chrissy Frazier LYMPH # 2.5 103/ul Normal 1.2-3.8 [facility] Comment on above: Performed By: #### C BC ####[facility] Pvflnysnni21[address] [place], [place] [address]DrNancy Frazier Lymphocytes/100 WBC (Bld) 13.9 % Critically low 20.5-60.0 [facility] Comment on above: Performed By: #### C BC ####[facility] Fvkvuodvki65[address] [place], [place] [address]DrNancy Frazier MANUAL DIFF REQ NO Normal [facility] Comment on above: Performed By: #### C BC ####[facility] Wlhrsufjlz33[address] [place] [address]Dr. Chrissy Frazier MCH (RBC) [Entitic mass] 28.6 pg Normal 25.9-34.0 [facility] Comment on above: Performed By: #### C BC ####[facility] Aovnxnnowx15[address] [place] [address]Dr. Chrissy Frazier MCHC (RBC) [Mass/Vol] 33.4 g/dL Normal 29.9-35.2 [facility] Comment on above: Performed By: #### C BC ####[facility] Cpdtuqbouq5166 [place] [address]Dr. Chrissy Frazier MCV (RBC) [Entitic vol] 85.7 fL Normal 80.0-94.0 [facility] Comment on above: Performed By: #### C BC ####[facility] Zmukaalxct[address] [place], [place] [address]DrNancy Frazier MONO # 0.7 103/ul Normal 0.3-0.8 [facility] [facility] Comment on above: Performed By: #### C BC ####[facility] Kquqyjpmbi[address] [place], [place] [address]Dr. Chrissy Frazier Monocytes/100 WBC (Bld) 4.0 % Normal 1.7-12.0 [facility] Comment on above: Performed By: #### C BC ####[facility] Unfrrwjvgs[address] [place], [place] [address]DrNancy Frazier NEUT # 14.3 103/ul Critically high 1.4-6.5 [facility] Comment on above: Performed By: #### C BC ####[facility] Syqnmoicad[address] [place], [place] [address]Dr. Chrissy Frazier Neutrophils/100 WBC (Bld) 80.8 % Critically high 43.0-75.0 [facility] Comment on above: Performed By: #### C BC ####[facility] Pqblbwgbip[address] [place], [place] [address]DrNancy Frazier Platelet mean volume (Bld) [Entitic vol] 10.4 fL Normal 9.5-13.5 [facility] Comment on above: Performed By: #### C BC ####[facility] Clneqpknde20[address] [place], [place] [address]Dr. Chrissy Frazier PLT 437 103/ul Normal 150-450 [facility] Comment on above: Performed By: #### C BC ####[facility] Uezkiobtsl[address] [place] [address]Dr. Chrissy Frazier RBC 5.38 106/ul Normal 4.70-6.10 [facility] Comment on above: Performed By: #### C BC ####[facility] Etsgvegycv3860 [place] [address]Dr. Chrissy Frazier WBC 17.7 103/ul Critically high 4.0-11.0 [facility] Comment on above: Performed By: #### C BC ####[facility] Ejumoctuhh30[address] [place] [address]Dr. Chrissy Frazier CULTURE BLOODon 01-03-2023 Microscopic examination of blood, culture Culture Observations: NO GROWTH AT 5 DAYS. Normal [facility] Comment on above: Performed By: #### B LDCX1 ####[facility] Uhaunaawxu[address] [place], [place] [address]Dr. Chrissy Frazier Performed By: #### B LDCX2 ####[facility] Wcpeglkxko6270 [place] [address]Dr. Chrissy Frazier ECHOCARDIO M/2D COMPLETEon 0 01-03-2023 ECHOCARDIO M/2D COMPLETE Normal [facility] LACTATE/LACTIC ACIDon 2022 Lactate [Moles/Vol] 2.7 mmol/L Critically high 0.4-1.9 [facility] Comment on above: Performed By: #### L ACT ####[facility] Sszcwrpcrq0526 [place] [address]Dr. Chrissy Frazier Lactate [Moles/Vol] 6.3 mmol/L Critically high 0.4-1.9 [facility] Comment on above: Performed By: #### L ACT ####[facility] Ylawloahaw[address] [place] [address]Dr. Chrissy Frazier LIPASEon 01-03-2023 Lipase [Catalytic activity/Vol] 74.0 U/L Normal 73.0-393.0 [facility] Comment on above: Performed By: #### L IPA, TERRENCE, CMP, MG ####[facility] Ostmrifajf8[address] [place] [address]Dr. Chrissy Frazier MAGNESIUMon 01-03-2023 Magnesium [Mass/Vol] 1.6 mg/dL Critically low 1.8-2.4 [facility] Comment on above: Performed By: #### L IPA, TERRENCE, CMP, MG ####[facility] Tshdguhmyq6108 [place] [address]Dr. Chrissy Frazier PROF 14(COMP METB)on 023 Albumin [Mass/Vol] 4.3 g/dL Normal 3.4-5.0 [facility] Comment on above: Performed By: #### L IPA, TERRENCE, CMP, MG ####[facility] Dbyfhgjpnj3542 [place] [address]Dr. Chrissy Frazier Albumin/Globulin [Mass ratio] 1.1 {ratio} Normal [facility] Comment on above: Performed By: #### L IPA, TERRENCE, CMP, MG ####[facility] Xecqpzyurh1516 [place] [address]Dr. Chrissy Frazier ALP [Catalytic activity/Vol] 87 U/L Normal 46-116 [facility] Comment on above: Performed By: #### L IPA, TERRENCE, CMP, MG ####[facility] Wolzdnrpxw7968 [place] [address]Dr. Chrissy Frazier ALT [Catalytic activity/Vol] 32 U/L Normal 16-63 [facility] Comment on above: Performed By: #### L IPA, TERRENCE, CMP, MG ####[facility] Ximyeuprvh7691 [place] [address]Dr. Chrissy Frazier Anion gap [Moles/Vol] 24.0 mmol/L Normal [facility] Comment on above: Performed By: #### L IPA, TERRENCE, CMP, MG ####[facility] Nfkutegosj0849 [place] [address]Dr. Chrissy Frazier AST [Catalytic activity/Vol] 22 U/L Normal 15-37 [facility] Comment on above: Performed By: #### L IPA, TERRENCE, CMP, MG ####[facility] Guedqxnodx2467 [place] [address]Dr. Chrissy Frazier Bilirubin [Mass/Vol] 0.6 mg/dL Normal 0.2-1.0 [facility] Comment on above: Performed By: #### L IPA, TERRENCE, CMP, MG ####[facility] Mnjrprlnlv8953 [place] [address]Dr. Chrissy Frazier Calcium [Mass/Vol] 9.6 mg/dL Normal 8.5-10.1 [facility] Comment on above: Performed By: #### L IPA, TERRENCE, CMP, MG ####[facility] Moudadmsao9458 [place] [address]Dr. Chrissy Frazier Chloride [Moles/Vol] 103 mmol/L Normal 98-107 [facility] Comment on above: Performed By: #### L IPA, TERRENCE, CMP, MG ####[facility] Jvrlatqyhi[address] [place], [place] [address]Dr. Chrissy Frazier CO2 [Moles/Vol] 16.7 mmol/L Critically low 21.0-32.0 [facility] Comment on above: Performed By: #### L IPA, TERRENCE, CMP, MG ####[facility] Hclnldbbby59[address] [place], [place] [address]Dr. Chrissy Frazier Creatinine [Mass/Vol] 1.42 mg/dL Critically high 0.70-1.30 [facility] Comment on above: Performed By: #### L IPA, TERRENCE, CMP, MG ####[facility] Aarqwkxdwq4684 [place] [address]Dr. Chrissy Frazier EGFR-AF TUVALUAN >60 Normal >=60 [facility] Comment on above: Performed By: #### L IPA, TERRENCE, CMP, MG ####[facility] Rxomuhckjn317[address] [place], [place] [address]Dr. Chrissy Frazier EGFR-NON AF TUVALUAN 58 mL/min/1.73m2 Critically low >=60 [facility] Comment on above: Performed By: #### L IPA, TERRENCE, CMP, MG ####[facility] Woinxubika9588 [place] [address]Dr. Chrissy Frazier Globulin (S) [Mass/Vol] 4.0 g/dL Normal [facility] Comment on above: Performed By: #### L IPA, TERRENCE, CMP, MG ####[facility] Ppzaohoesg8268 [place] [address]Dr. Chrissy Frazier Glucose [Mass/Vol] 149 mg/dL Critically high 74-106 [facility] Comment on above: Performed By: #### L IPA, TERRENCE, CMP, MG ####[facility] Nsbfyhadxz8886 [place] [address]Dr. Chrissy Frazier Potassium [Moles/Vol] 3.7 mmol/L Normal 3.5-5.1 [facility] Comment on above: Performed By: #### L IPA, TERRENCE, CMP, MG ####[facility] Ckgntdfkku2632 [place] [address]Dr. Chrissy Frazier Protein [Mass/Vol] 8.3 g/dL Critically high 6.4-8.2 [facility] Comment on above: Performed By: #### L IPA, TERRENCE, CMP, MG ####[facility] Rcrcguprwm1609 [place] [address]Dr. Chrissy Frazier Sodium [Moles/Vol] 140 mmol/L Normal 136-145 [facility] Comment on above: Performed By: #### L IPA, TERRENCE, CMP, MG ####[facility] Azupjsqpzf2391 [place] [address]Dr. Chrissy Frazier Urea nitrogen [Mass/Vol] 16.0 mg/dL Normal 7.0-18.0 [facility] Comment on above: Performed By: #### L IPA, TERRENCE, CMP, MG ####[facility] Ucvuekrjod5080 [place] [address]Dr. Chrissy Frazier Urea nitrogen/Creatinine [Mass ratio] 11.3 mg/mg Normal [facility] Comment on above: Performed By: #### L IPA, TERRENCE, CMP, MG ####[facility] Hhkdrdvfov0170 [place] [address]Dr. Chrissy Frazier SED RATE [facility] 2022 SED RATE 37 mm/hr Critically high <=15 [facility] Comment on above: Performed By: #### S EDR ####[facility] Hpphzcmuya14[address] [place], [place] [address]Nq. Chrissy Frazier XR ABD FLAT UP_PA Enoch 01-03 XR ABD FLAT UP_PA CH Normal [facility] CT HEART CORONARY ANGIOGRAMo n 12-13-2022 [...] examination Electronically signed: Maikel Chappell. Normal [facility] Office Visiton 11-24-2022 Follow-up visit [id number] Paulina Montero 1990 M Date Provider Department Center 11/24/2022 3848-RAQUEL BANKS MANE [facility] Family History Problem Relation Age of Onset Coronary artery disease Father Heart attack Father 54 Family Status - Relation Status Age at Father Level of Service:55423 [place] OFFICE/OUTPATIENT NEW MODERATE MDM 45-59 MINUTES Reason for Visit and Comments: abnormal stress test [Other] Normal [facility] CARDIAC STRESS TESTon 2021 CARDIAC STRESS TEST Normal [facility] AMYLASEon 10-24-2022 Amylase [Catalytic activity/Vol] 26 U/L Normal 25-115 [facility] Comment on above: Performed By: #### C MP, LIPA, TERRENCE ####[facility] Ouktjmltky39[address] [place], [place] [address]LfNancy Chrissy Frazier CBC AUTO DIFFon 10-24-2022 BASO # 0.0 103/ul Normal 0.0-0.1 [facility] Comment on above: Performed By: #### C BC ####[facility] Cnyclzjzqr4[address] [place] [id number]. Chrissy Frazier Basophils/100 WBC (Bld) 0.2 % Normal 0.2-2.0 [facility] Comment on above: Performed By: #### C BC ####[facility] Ppngtmajxd6348 [place] [id number]. Chrissy Frazier EO # 0.1 103/ul Normal 0.0-0.7 [facility] Comment on above: Performed By: #### C BC ####[facility] Onq[address] [place], [place] [address]Dr. Chrissy Frazier Eosinophils/100 WBC (Bld) 0.4 % Critically low 0.9-7.0 [facility] Comment on above: Performed By: #### C BC ####[facility] Iybbajjgzp[address] [place], [place] [address]Dr. Chrissy Frazier Erythrocyte distribution width (RBC) [Ratio] 14.6 % Normal 11.0-15.0 [facility] Comment on above: Performed By: #### C BC ####[facility] Hzxspzygrj6890 [place] [address]Dr. Chrissy Frazier Hematocrit (Bld) [Volume fraction] 39.4 % Critically low 42.0-54.0 [facility] Comment on above: Performed By: #### C BC ####[facility] Mmkbakqycu7890 [place] [id number]. Chrissy Frazier Hemoglobin (Bld) [Mass/Vol] 13.2 g/dL Critically low 14.0-18.0 [facility] Comment on above: Performed By: #### C BC ####[facility] Jdptotdzcl7842 [place] [address]Dr. Chrissy Frazier IG # 0.07 10e3/ul Critically high 0.00-0.03 [facility] Comment on above: Performed By: #### C BC ####[facility] [address] [place], [place] [address]Dr. Chrissy Frazier IG % 0.5 % Normal 0.0-0.5 [facility] Comment on above: Performed By: #### C BC ####[facility] Egtvpotzja0997 [place] [id number]. Chrissy Frazier LYMPH # 3.7 103/ul Normal 1.2-3.8 [facility] Comment on above: Performed By: #### C BC ####[facility] Votwxionqf0516 [place], [place] [address]Gh. Chrissy Freddie Lymphocytes/100 WBC (Bld) 27.0 % Normal 20.5-60.0 [facility] Comment on above: Performed By: #### C BC ####[facility] Qwrqiyisjr8124 [place] [phone]. Tishrowan Frazier MANUAL DIFF REQ NO Normal [facility] Comment on above: Performed By: #### C BC ####[facility] Wbbllwjnmx1823 [place] [phone]. Chrissy Freddie MCH (RBC) [Entitic mass] 27.8 pg Normal 25.9-34.0 [facility] Comment on above: Performed By: #### C BC ####[facility] Bbwjkeyemf3926 [place] [phone]. Chrissy Frazier MCHC (RBC) [Mass/Vol] 33.5 g/dL Normal 29.9-35.2 [facility] Comment on above: Performed By: #### C BC ####[facility] Ntlodxkmlw0445 [place] [id number]. Chrissy Frazier MCV (RBC) [Entitic vol] 82.9 fL Normal 80.0-94.0 [facility] Comment on above: Performed By: #### C BC ####[facility] Aphgqhisnc8514 [place] [id number]. Chrissy Freddie MONO # 1.2 103/ul Critically high 0.3-0.8 [facility] Comment on above: Performed By: #### C BC ####[facility] Bybrqyaolt4861 [place] [id number]. Tishrowan Frazier Monocytes/100 WBC (Bld) 8.4 % Normal 1.7-12.0 [facility] Comment on above: Performed By: #### C BC ####[facility] Gqkzyaybzi9571 [place] [id number]. Chrissy Frazier NEUT # 8.8 103/ul Critically high 1.4-6.5 [facility] Comment on above: Performed By: #### C BC ####[facility] Swcvbozeax6227 [place] [id number]. Chrissy Frazier Neutrophils/100 WBC (Bld) 63.5 % Normal 43.0-75.0 [facility] Comment on above: Performed By: #### C BC ####[facility] Dsejihupjg3501 [place] [phone]. Tishrowan Frazier Platelet mean volume (Bld) [Entitic vol] 10.7 fL Normal 9.5-13.5 [facility] Comment on above: Performed By: #### C BC ####[facility] Uxvibrycsf3261 [place] [id number]. Chrissy Frazier PLT 291 103/ul Normal 150-450 [facility] Comment on above: Performed By: #### C BC ####[facility] L[address]jsstclie[address] [place], [place] [address]Dr. Chrissy Frazier RBC 4.75 106/ul Normal 4.70-6.10 [facility] Comment on above: Performed By: #### C BC ####[facility] Nlmsrnpbyn3605 [place] [id number]. Chrissy Frazier WBC 13.8 103/ul Critically high 4.0-11.0 [facility] Comment on above: Performed By: #### C BC ####[facility] Rihzepdkry[address] [place], [place] [address]Dr. Chrissy Frazier LIPASEon 10-24-2022 Lipase [Catalytic activity/Vol] 44.0 U/L Critically low 73.0-393.0 [facility] Comment on above: Performed By: #### C MP, LIPA, TERRENCE ####[facility] Flgfsmmvuy7836 [place] [address]Dr. Chrissy Frazier PROF 14(COMP METB)on 022 Albumin [Mass/Vol] 3.4 g/dL Normal 3.4-5.0 [facility] Comment on above: Performed By: #### C OSWALD ADAIR, TERRENCE ####[facility] Ziupoyepkf3821 [place] [address]Dr. Chrissy Frazier Albumin/Globulin [Mass ratio] 0.9 {ratio} Normal [facility] Comment on above: Performed By: #### C TESSA ADAIRA, TERRENCE ####[facility] Tphvfloejb[address] [place], [place] [address]Dr. Tishrowan Frazier ALP [Catalytic activity/Vol] 67 U/L Normal 46-116 [facility] Comment on above: Performed By: #### C OSWALD ADAIR, TERRENCE ####[facility] Mooulpfsoo[address] [place], [place] [address]Dr. Chrissy Frazier ALT [Catalytic activity/Vol] 25 U/L Normal 16-63 [facility] Comment on above: Performed By: #### C OSWALD ADAIR, TERRENCE ####[facility] Tojdrubsos73[address] [place], [place] [address]Dr. Chrissy Frazier Anion gap [Moles/Vol] 14.5 mmol/L Normal [facility] Comment on above: Performed By: #### C OSWALD ADAIR, TERRENCE ####[facility] Ahcxxnjatq5[address] [place], [place] [address]Dr. Chrissy Frazier AST [Catalytic activity/Vol] 17 U/L Normal 15-37 [facility] Comment on above: Performed By: #### C OSWALD ADAIR, TERRENCE ####[facility] Hztqcsceiw12[address] [place], [place] [address]Dr. Chrissy Frazier Bilirubin [Mass/Vol] 0.5 mg/dL Normal 0.2-1.0 [facility] Comment on above: Performed By: #### C OSWALD ADAIR, TERRENCE ####[facility] Tlmufaczyt8[address] [place], [place] [address]Dr. Chrissy Frazier Calcium [Mass/Vol] 8.6 mg/dL Normal 8.5-10.1 [facility] Comment on above: Performed By: #### C TESSA ADAIRA, TERRENCE ####[facility] Nmanjhkcco6073 [place] [address]Dr. Chrissy Frazier Chloride [Moles/Vol] 106 mmol/L Normal 98-107 [facility] Comment on above: Performed By: #### C OSWALD ADAIR, TERRENCE ####[facility] Jcmviwjtmm1512 [place] [address]Dr. Chrissy Frazier CO2 [Moles/Vol] 22.8 mmol/L Normal 21.0-32.0 [facility] Comment on above: Performed By: #### C OSWALD ADAIR, TERRENCE ####[facility] Mwgnjtuldb8038 [place] [address]Dr. Chrissy Frazier Creatinine [Mass/Vol] 0.98 mg/dL Normal 0.70-1.30 [facility] Comment on above: Performed By: #### C OSWALD ADAIR, TERRENCE ####[facility] Rupjxnvytu9[address] [place], [place] [address]Dr. Chrissy Frazier EGFR-AF TUVALUAN >60 Normal >=60 [facility] Comment on above: Performed By: #### C OSWALD ADAIR, TERRENCE ####[facility] Rqcfrmnzqy[address] [place], [place] [address]Dr. Chrissy Frazier EGFR-NON AF TUVALUAN >60 Normal >=60 [facility] Comment on above: Performed By: #### C OSWALD ADAIR, TERRENCE ####[facility] Xhxhvuxsxg0378 [place] [address]Dr. Chrissy Frazier Globulin (S) [Mass/Vol] 3.7 g/dL Normal [facility] Comment on above: Performed By: #### C OSWALD ADAIR, TERRENCE ####[facility] Vpvukzqutw8723 [place] [address]Dr. Chrissy Frazier Glucose [Mass/Vol] 115 mg/dL Critically high 74-106 [facility] Comment on above: Performed By: #### C OSWALD ADAIR, TERRENCE ####[facility] Xdufvdnwbv6952[address] [place], [place] [address]Dr. Chrissy Frazier Potassium [Moles/Vol] 3.3 mmol/L Critically low 3.5-5.1 [facility] Comment on above: Performed By: #### C MP, LIPA, TERRENCE ####[facility] Ejivzrrudl238[address] [place], [place] [address]Dr. Chrissy Frazier Protein [Mass/Vol] 7.1 g/dL Normal 6.4-8.2 [facility] Comment on above: Performed By: #### C MP, LIPA, TERRENCE ####[facility] Tavdlaqfgo18[address] [place], [place] [address]Dr. Chrissy Frazier Sodium [Moles/Vol] 140 mmol/L Normal 136-145 [facility] Comment on above: Performed By: #### C MP, LIPA, TERRENCE ####[facility] Jcsupqmyzc7165[address] [place], [place] [address]Dr. Chrissy Frazier Urea nitrogen [Mass/Vol] 10.0 mg/dL Normal 7.0-18.0 [facility] Comment on above: Performed By: #### C MP, LIPA, TERRENCE ####[facility] Aqwcjnoqvy15[address] [place], [place] [address]Dr. Chrissy Frazier Urea nitrogen/Creatinine [Mass ratio] 10.2 mg/mg Normal [facility] Comment on above: Performed By: #### C MP, LIPA, TERRENCE ####[facility] Ytiowsjdxo40[address] [place], [place] [address]Dr. Chrissy Frazier AMYLASEon 10-23-2022 Amylase [Catalytic activity/Vol] 31 U/L Normal 25-115 [facility] Comment on above: Performed By: #### C MP, LIPA, TERRENCE ####[facility] Schfzogetk[address] [place], [place] [address]Dr. Chrissy Frazier CBC AUTO DIFFon 10-23-2022 BASO # 0.1 103/ul Normal 0.0-0.1 [facility] Comment on above: Performed By: #### C BC ####[facility] Jrzyuorirl0766[address] [place], [place] [address]Dr. Chrissy Frazier Basophils/100 WBC (Bld) 0.3 % Normal 0.2-2.0 [facility] Comment on above: Performed By: #### C BC ####[facility] Omkqghifdf0479 [place] [address]Dr. Chrissy Frazier EO # 0.1 103/ul Normal 0.0-0.7 [facility] Comment on above: Performed By: #### C BC ####[facility] Fzxrbpaivq5769 [place] [address]Dr. Chrissy Frazier Eosinophils/100 WBC (Bld) 0.3 % Critically low 0.9-7.0 [facility] Comment on above: Performed By: #### C BC ####[facility] Xhqcbkdyfg[address] [place], [place] [address]Dr. Chrissy Frazier Erythrocyte distribution width (RBC) [Ratio] 14.5 % Normal 11.0-15.0 [facility] Comment on above: Performed By: #### C BC ####[facility] Wytysruuyo[address] [place], [place] [address]Dr. Chrissy Frazier Hematocrit (Bld) [Volume fraction] 44.0 % Normal 42.0-54.0 [facility] Comment on above: Performed By: #### C BC ####[facility] Leavmnvatj60[address] [place], [place] [address]Dr. Chrissy Frazier Hemoglobin (Bld) [Mass/Vol] 14.8 g/dL Normal 14.0-18.0 [facility] Comment on above: Performed By: #### C BC ####[facility] Vvkuwoyyxj6957 [place] [address]Dr. Chrissy Frazier IG # 0.09 10e3/ul Critically high 0.00-0.03 [facility] Comment on above: Performed By: #### C BC ####[facility] Bgtayrgdgo6718 [place] [address]Dr. Chrissy Frazier IG % 0.5 % Normal 0.0-0.5 [facility] Comment on above: Performed By: #### C BC ####[facility] Rcovdfkexu[address] [place], [place] [address]Dr. Chrissy Frazier LYMPH # 3.6 103/ul Normal 1.2-3.8 [facility] Comment on above: Performed By: #### C BC ####[facility] Baihuuhmah5291 [place] [id number]. Chrissy Freddie Lymphocytes/100 WBC (Bld) 19.4 % Critically low 20.5-60.0 [facility] Comment on above: Performed By: #### C BC ####[facility] Hzhpzizfqk3657 [place] [id number]. Tishrowan Frazier MANUAL DIFF REQ NO Normal [facility] Comment on above: Performed By: #### C BC ####[facility] Vctncybjli8064 [place] [id number]. Chrissy Freddie MCH (RBC) [Entitic mass] 28.1 pg Normal 25.9-34.0 [facility] Comment on above: Performed By: #### C BC ####[facility] Phttybmyqd4623 [place] [id number]. Chrissy Freddie MCHC (RBC) [Mass/Vol] 33.6 g/dL Normal 29.9-35.2 [facility] Comment on above: Performed By: #### C BC ####[facility] Inqnjeuybs0464 [place] [id number]. Chrissy Freddie MCV (RBC) [Entitic vol] 83.5 fL Normal 80.0-94.0 [facility] Comment on above: Performed By: #### C BC ####[facility] Ercvfvddzr2728 [place] [id number]. Chrissy Frazier MONO # 0.9 103/ul Critically high 0.3-0.8 [facility] Comment on above: Performed By: #### C BC ####[facility] Ptlxynsilu4485 [place] [address]Dr. Tishrowan Frazier Monocytes/100 WBC (Bld) 4.9 % Normal 1.7-12.0 [facility] Comment on above: Performed By: #### C BC ####[facility] Nstntbjeoj7195 [place] [id number]. Chrissy Frazier NEUT # 13.9 103/ul Critically high 1.4-6.5 [facility] Comment on above: Performed By: #### C BC ####[facility] Udmrbhjpkp8144 [place] [id number]. Chrissy Frazier Neutrophils/100 WBC (Bld) 74.6 % Normal 43.0-75.0 [facility] Comment on above: Performed By: #### C BC ####[facility] Kqbqlefgdz1541 [place] [id number]. Chrissy Frazier Platelet mean volume (Bld) [Entitic vol] 10.5 fL Normal 9.5-13.5 [facility] Comment on above: Performed By: #### C BC ####[facility] Eknauzrjjy1267 [place] [id number]. Chrissy Frazier PLT 402 103/ul Normal 150-450 [facility] Comment on above: Performed By: #### C BC ####[facility] Jxknypwdxn3998 [place] [id number]. Chrissy Frazier RBC 5.27 106/ul Normal 4.70-6.10 [facility] Comment on above: Performed By: #### C BC ####[facility] Wvayjzuezc4457 [place] [id number]. Chrissy Frazier WBC 18.6 103/ul Critically high 4.0-11.0 [facility] Comment on above: Performed By: #### C BC ####[facility] [address] [place] [id number]. Chrissy Frazier CULTURE BLOODon 10-23-2022 Microscopic examination of blood, culture Culture Observations: NO GROWTH AT 5 DAYS. Normal [facility] Comment on above: Performed By: #### B LDCX2 ####[facility] R[address]qfsqidv[address] [place] [id number]. Chrissy Frazier Microscopic examination of blood, culture Culture Observations: NO GROWTH AT 5 DAYS. Normal [facility] Comment on above: Performed By: #### B LDCX1 ####[facility] [address] [place] [id number]. Chrissy Frazier CULTURE URINEon 10-23-2022 CULTURE URINE Culture Observations: NO GROWTH. Normal [facility] Comment on above: Performed By: #### U RCX ####[facility] [address]pc[address] [place] [address]Dr. Chrissy Frazier Covid-19 PCR (CVDTB)on SARS-CoV-2 (COVID-19) RNA RHIANNON+probe Ql (Unsp spec) Not detected Normal NOT DETECTED The [facility] Comment on above: Result Comment: When [...] for this test is supported by the Supportive Employment Case Manager of Health and Human Service's declaration [...] be used). Performed By: #### C VDTBH ####[facility] Jcfhwmfjur[address] [place], [place] [address]Dr. Chrissy Frazier INFLUENZA A AND B AGon 10-23 INFLUANEGH SEE BELOW Normal [facility] Comment on above: Result Comment: Nega tive for Flu A protein angiten. Infection due to Flu A cannot be ruled out. Flu A angiten in the sample may be below the detection limit of the test. Performed By: #### I NFLUAB ####[facility] Tnlobedswn[address] [place], [place] [address]Dr. Chrissy Frazier INFLUBNEGH SEE BELOW Normal [facility] Comment on above: Result Comment: Nega tive for Flu B protein antigen. Infection due to Flu B cannot be ruled out. Flu B antigen in the sample may be below the detection limit of the test. Performed By: #### I NFLUAB ####[facility] Zmavtdgnvl69[address] [place], [place] [address]Dr. Chrissy Frazier INFLUENZA A AG Negative Normal NEGATIVE SEE COMMENT The [facility] Comment on above: Performed By: #### I NFLUAB ####[facility] Efetnoxvnz[address] [place] [address]Dr. Chrissy Frazier INFLUENZA B AG Negative Normal NEGATIVE SEE COMMENT The [facility] Comment on above: Performed By: #### I NFLUAB ####[facility] Ayhhtrxsvu11[address] [place], [place] [address]Dr. Chrissy Frazier INTERNAL CONTROLS Within Normal Limits Normal Wi thin Normal Limits The [facility] Comment on above: Performed By: #### I NFLUAB ####[facility] Kcjdtvyjom6[address] [place], [place] [address]Dr. Chrissy Frazier LACTATE/LACTIC ACIDon 2021 Lactate [Moles/Vol] 2.1 mmol/L Critically high 0.4-1.9 [facility] Comment on above: Performed By: #### L ACT ####[facility] Qlpkjjfitg0140[address] [place], [place] [address]Dr. Chrissy Frazier Lactate [Moles/Vol] 6.9 mmol/L Critically high 0.4-1.9 [facility] Comment on above: Performed By: #### L ACT ####[facility] Obpdabfzsv7[address] [place], [place] [address]Dr. Chrissy Freddie LIPASEon 10-23-2022 Lipase [Catalytic activity/Vol] 72.0 U/L Critically low 73.0-393.0 [facility] Comment on above: Performed By: #### C OSWALD ADAIR AMY ####[facility] Ycoqtzoegk[address] [place], [place] [address]Dr. Chrissy Frazier PROF 14(COMP METB)on 022 Albumin [Mass/Vol] 3.9 g/dL Normal 3.4-5.0 [facility] Comment on above: Performed By: #### C OSWALD ADAIR AMY ####[facility] Hwipcgript5[address] [place], [place] [address]Dr. Chrissy Freddie Albumin/Globulin [Mass ratio] 0.9 {ratio} Normal [facility] Comment on above: Performed By: #### C MP, LIPA, TERRENCE ####[facility] [address]xd[address] [place] [address]Dr. Chrissy Frazier ALP [Catalytic activity/Vol] 82 U/L Normal 46-116 [facility] Comment on above: Performed By: #### C MP, LIPA, TERRENCE ####[facility] Azgxtpkcuf[address] [place] [address]Dr. Chrissy Frazier ALT [Catalytic activity/Vol] 25 U/L Normal 16-63 [facility] Comment on above: Performed By: #### C MP, LIPA, TERRENCE ####[facility] Qhauigasvs020[address] [place], [place] [address]Dr. Chrissy Frazier Anion gap [Moles/Vol] 18.1 mmol/L Normal [facility] Comment on above: Performed By: #### C MP, LIPA, TERRENCE ####[facility] Dqocxbolrx01[address] [place], [place] [address]Dr. Chrissy Frazier AST [Catalytic activity/Vol] 17 U/L Normal 15-37 [facility] Comment on above: Performed By: #### C MP, LIPA, TERRENCE ####[facility] Ksitlkhgxz227[address] [place], [place] [address]Dr. Chrissy Frazier Bilirubin [Mass/Vol] 0.5 mg/dL Normal 0.2-1.0 [facility] Comment on above: Performed By: #### C MP, LIPA, TERRENCE ####[facility] Pchyhbxamx62[address] [place], [place] [address]Dr. Chrissy Frazier Calcium [Mass/Vol] 9.1 mg/dL Normal 8.5-10.1 [facility] Comment on above: Performed By: #### C MP, LIPA, TERRENCE ####[facility] Dqnfvsauuw74[address] [place], [place] [address]Dr. Chrissy Frazier Chloride [Moles/Vol] 101 mmol/L Normal 98-107 [facility] Comment on above: Performed By: #### C MP, LIPA, TERRENCE ####[facility] Zpoqukjcjz[address] [place], [place] [address]Dr. Chrissy Frazier CO2 [Moles/Vol] 19.2 mmol/L Critically low 21.0-32.0 [facility] Comment on above: Performed By: #### C OSWALD ADAIR TERRENCE ####[facility] Txdct[address]zbiu[address] [place] [address]Dr. Chrissy Frazier Creatinine [Mass/Vol] 1.72 mg/dL Critically high 0.70-1.30 [facility] Comment on above: Performed By: #### C OSWALD ADAIR, TERRENCE ####[facility] Ytwumbzpir[address] [place] [address]Dr. Chrissy Frazier EGFR-AF TUVALUAN 56 mL/min/1.73m2 Critically low >=60 [facility] Comment on above: Performed By: #### C OSWALD ADAIR, TERRENCE ####[facility] N[address]ewxzwhb[address] [place] [address]Dr. Chrissy Frazier EGFR-NON AF TUVALUAN 46 mL/min/1.73m2 Critically low >=60 [facility] Comment on above: Performed By: #### C OSWALD ADAIR, TERRENCE ####[facility] Xnvhmhxcjy26[address] [place], [place] [address]Dr. Chrissy Frazier Globulin (S) [Mass/Vol] 4.2 g/dL Normal [facility] Comment on above: Performed By: #### C OSWALD ADAIR, TERRENCE ####[facility] Skxcnxewfa[address] [place] [address]Dr. Chrissy Frazier Glucose [Mass/Vol] 126 mg/dL Critically high 74-106 [facility] Comment on above: Performed By: #### C OSWALD ADAIR, TERRENCE ####[facility] Xwcfybuatm[address] [place] [address]Dr. Chrissy Frazier Potassium [Moles/Vol] 3.3 mmol/L Critically low 3.5-5.1 [facility] Comment on above: Performed By: #### C TESSA ADAIRA, TERRENCE ####[facility] Fvlgdzztju6[address] [place] [address]Dr. Chrissy Frazier Protein [Mass/Vol] 8.1 g/dL Normal 6.4-8.2 [facility] Comment on above: Performed By: #### C OSWALD ADAIR, TERRENCE ####[facility] [address]ermrksufw[address] [place] [address]Dr. Chrissy Frazier Sodium [Moles/Vol] 135 mmol/L Critically low 136-145 [facility] Comment on above: Performed By: #### C TESSA ADAIRA, TERRENCE ####[facility] Npgxhfarsc4[address] [place] [address]Dr. Chrissy Frazier Urea nitrogen [Mass/Vol] 13.0 mg/dL Normal 7.0-18.0 [facility] Comment on above: Performed By: #### C OSWALD ADAIR, TERRENCE ####[facility] Rjbszbmwxv[address] [place], [place] [address]Dr. Chrissy Frazier Urea nitrogen/Creatinine [Mass ratio] 7.6 mg/mg Normal [facility] Comment on above: Performed By: #### C OSWALD ADAIR, TERRENCE ####[facility] Exojandpcs[address] [place], [place] [address]Dr. Chrissy Frazier UA RANDOM W/MICROSCOPICon BACTERIA NONE SEEN Normal NONE SEEN [facility] Comment on above: Performed By: #### U AMIC ####[facility] Hcmkeiizln[address] [place], [place] [address]Dr. Chrissy Frazier Bilirubin Ql (U) Negative Normal NEGATIVE The [facility] Comment on above: Performed By: #### U AMIC ####[facility] Qmmgeworrv113[address] [place], [place] [address]Dr. Chrissy Frazier CAST NONE SEEN Normal NONE SEEN The [facility] Comment on above: Performed By: #### U AMIC ####[facility] Yshypojhal[address] [place], [place] [address]Dr. Chrissy Frazier Clarity (U) CLEAR Normal CLEAR [facility] Comment on above: Performed By: #### U AMIC ####[facility] Eyzrasewtc[address] [place] [address]Dr. Chrissy Frazier Color (U) LT. YELLOW Normal YELLOW [facility] Comment on above: Performed By: #### U AMIC ####[facility] Bcpicfvoau[address] [place] [address]Dr. Chrissy Frazier Crystals LM Nom (Urine sed) NONE SEEN Normal NONE SEEN [facility] Comment on above: Performed By: #### U AMIC ####[facility] Xwmndtojcu16[address] [place], [place] [address]Dr. Chrissy Frazier Epithelial cells LM Ql (Urine sed) FEW Abnormal NONE SEEN /RARE The [facility] Comment on above: Performed By: #### U AMIC ####[facility] Wxbjoychvg8[address] [place], [place] [address]Dr. Chrissy Frazier Glucose Ql (U) Negative Normal NEGATIVE The [facility] Comment on above: Performed By: #### U AMIC ####[facility] Plyfbguwpp1227[address] [place], [place] [address]Dr. Chrissy Frazier Hemoglobin Ql (U) Negative Normal NEGATIVE The [facility] Comment on above: Performed By: #### U AMIC ####[facility] Wuvrxnltpx4[address] [place], [place] [address]Dr. Chrissy Frazier Ketones Ql (U) 15 mg/dl Abnormal NEGATIVE The [facility] Comment on above: Performed By: #### U AMIC ####[facility] Dactjqxlye6787[address] [place], [place] [address]Dr. Chrissy Frazier LEUKOCYTES Negative Normal NEGATIVE [facility] Comment on above: Performed By: #### U AMIC ####[facility] Zohbwustpf99[address] [place], [place] [address]Dr. Chrissy Frazier MUCOUS NONE SEEN Normal NONE SEEN The [facility] Comment on above: Performed By: #### U AMIC ####[facility] Qunavoznrr7567[address] [place], [place] [address]Dr. Chrissy Frazier Nitrite Ql (U) Negative Normal NEGATIVE The [facility] Comment on above: Performed By: #### U AMIC ####[facility] Sfttsgzomc4867[address] [place], [place] [address]Dr. Chrissy Frazier pH (U) 6.0 [pH] Normal 5-9 [facility] Comment on above: Performed By: #### U AMIC ####[facility] Yxpdlopske2616[address] [place], [place] [address]Dr. Chrissy Frazier RBC 0-2 Normal 0-2 [facility] Comment on above: Performed By: #### U AMIC ####[facility] Ssfbjpfpej[address] [place] [address]Dr. Chrissy Frazier SPEC GRAVITY 1.010 Normal 1.005-<=1.025 [facility] Comment on above: Performed By: #### U AMIC ####[facility] Dfbmwhewkm[address]67 [place] [address]Dr. Chrissy Freddie UA PROTEIN Negative Normal NEGATIVE/ TRACE [facility] Comment on above: Performed By: #### U AMIC ####[facility] Xfxtqajyvz33[address] [place] [address]Dr. Chrissy Freddie Urobilinogen Qn (U) 0.2 {Estrellita'U}/dL Normal 0.2 - 1. 0 [facility] Comment on above: Performed By: #### U AMIC ####[facility] Cyvfehlefj23[address] [place], [place] [address]Dr. Chrissy Freddie WBC NONE SEEN Normal NONE SEEN [facility] Comment on above: Performed By: #### U AMIC ####[facility] Jsegpcsjzc69[address] [place], [place] [address]Dr. Chrissy Freddie AMYLASEon 10-22-2022 Amylase [Catalytic activity/Vol] 28 U/L Normal 25-115 [facility] Comment on above: Performed By: #### L IPA, CMP, TERRENCE ####[facility] Xvloyrifmb[address] [place], [place] [address]Dr. Chrissy Freddie CBC AUTO DIFFon 10-22-2022 BASO # 0.0 103/ul Normal 0.0-0.1 [facility] Comment on above: Performed By: #### C BC ####[facility] Hckdgawjvx4[address] [place], [place] [address]Dr. Tishrowan Frazier Basophils/100 WBC (Bld) 0.2 % Normal 0.2-2.0 [facility] Comment on above: Performed By: #### C BC ####[facility] Harsyywbmy6954[address] [place], [place] [address]Dr. Chrissy Frazier EO # 0.0 103/ul Normal 0.0-0.7 [facility] Comment on above: Performed By: #### C BC ####[facility] Afatykbiyi4[address] [place] [address]Dr. Chrissy Frazier Eosinophils/100 WBC (Bld) 0.1 % Critically low 0.9-7.0 [facility] Comment on above: Performed By: #### C BC ####[facility] Khdzsqzvrn34[address] [place] [address]Dr. Chrissy Frazier Erythrocyte distribution width (RBC) [Ratio] 14.4 % Normal 11.0-15.0 [facility] Comment on above: Performed By: #### C BC ####[facility] Gvosanqruq[address] [place], [place] [address]Dr. Chrissy Frazier Hematocrit (Bld) [Volume fraction] 45.2 % Normal 42.0-54.0 [facility] Comment on above: Performed By: #### C BC ####[facility] Qumdssoapd7087[address] [place], [place] [address]Dr. Chrissy Frazier Hemoglobin (Bld) [Mass/Vol] 15.4 g/dL Normal 14.0-18.0 [facility] Comment on above: Performed By: #### C BC ####[facility] Kqzbysmkxu2115[address] [place], [place] [address]Dr. Chrissy Frazier IG # 0.07 10e3/ul Critically high 0.00-0.03 [facility] Comment on above: Performed By: #### C BC ####[facility] Chydondavr23[address] [place] [address]Dr. Chrissy Frazier IG % 0.4 % Normal 0.0-0.5 [facility] Comment on above: Performed By: #### C BC ####[facility] Dzrjxsocvm8550[address] [place], [place] [address]Dr. Chrissy Frazier LYMPH # 2.0 103/ul Normal 1.2-3.8 [facility] Comment on above: Performed By: #### C BC ####[facility] Djkmsdpsah899[address] [place], [place] [address]Dr. Chrissy Frazier Lymphocytes/100 WBC (Bld) 12.2 % Critically low 20.5-60.0 [facility] Comment on above: Performed By: #### C BC ####[facility] Rlbnygkauu[address] [place] [address]DrNancy Frazier MANUAL DIFF REQ NO Normal [facility] Comment on above: Performed By: #### C BC ####[facility] Cqjqthrjug7414 [place] [address]Dr. Chrissy Frazier MCH (RBC) [Entitic mass] 28.3 pg Normal 25.9-34.0 [facility] Comment on above: Performed By: #### C BC ####[facility] Usdnsgtyzp317[address] [place], [place] [address]Dr. Chrissy Frazier MCHC (RBC) [Mass/Vol] 34.1 g/dL Normal 29.9-35.2 [facility] Comment on above: Performed By: #### C BC ####[facility] Jbflciwgtj8197[address] [place], [place] [address]Dr. Chrissy Frazier MCV (RBC) [Entitic vol] 82.9 fL Normal 80.0-94.0 [facility] Comment on above: Performed By: #### C BC ####[facility] Wynkgvlkqn0676[address] [place], [place] [address]Dr. Chrissy Frazier MONO # 0.3 103/ul Normal 0.3-0.8 [facility] Comment on above: Performed By: #### C BC ####[facility] Arwxjuremp3084[address] [place], [place] [address]Dr. Chrissy Frazier Monocytes/100 WBC (Bld) 2.0 % Normal 1.7-12.0 [facility] Comment on above: Performed By: #### C BC ####[facility] Ejsquhltuh7246[address] [place], [place] [address]DrNancy Frazier NEUT # 14.0 103/ul Critically high 1.4-6.5 The [facility] Comment on above: Performed By: #### C BC ####[facility] Dwahkwxgar8584[address] [place], [place] [address]Dr. Chrissy Frazier Neutrophils/100 WBC (Bld) 85.1 % Critically high 43.0-75.0 [facility] Comment on above: Performed By: #### C BC ####[facility] Yzylroalhg6784 [place] [address]Dr. Chrissy Frazier Platelet mean volume (Bld) [Entitic vol] 10.6 fL Normal 9.5-13.5 [facility] Comment on above: Performed By: #### C BC ####[facility] Yucodgqpmj48[address] [place] [address]Dr. Chrissy Frazier PLT 411 103/ul Normal 150-450 [facility] Comment on above: Performed By: #### C BC ####[facility] Epckjmliny3933 [place] [address]Dr. Tishrowan Frazier RBC 5.45 106/ul Normal 4.70-6.10 [facility] Comment on above: Performed By: #### C BC ####[facility] Njrxrodptd67[address] [place], [place] [address]Dr. Chrissy Frazier WBC 16.5 103/ul Critically high 4.0-11.0 [facility] Comment on above: Performed By: #### C BC ####[facility] Jptsaauant4514[address] [place], [place] [address]Dr. Chrissy Freddie LIPASEon 10-22-2022 Lipase [Catalytic activity/Vol] 57.0 U/L Critically low 73.0-393.0 [facility] Comment on above: Performed By: #### L JULIEN CMP, TERRENCE ####[facility] Hocsdugvuq6785 [place] [address]Dr. Chrissy Frazier PROF 14(COMP METB)on 022 Albumin [Mass/Vol] 4.2 g/dL Normal 3.4-5.0 [facility] Comment on above: Performed By: #### L IPA CMP, TERRENCE ####[facility] Mchkgmfalo9660 [place] [address]Dr. Chrissy Frazier Albumin/Globulin [Mass ratio] 1.0 {ratio} Normal [facility] Comment on above: Performed By: #### L IPA, CMP, TERRENCE ####[facility] Nmemskehmg3732 [place] [address]Dr. Chrissy Frazier ALP [Catalytic activity/Vol] 92 U/L Normal 46-116 [facility] Comment on above: Performed By: #### L IPA, CMP, TERRENCE ####[facility] Winqaelyyu0273 [place] [address]Dr. Chrissy Frazier ALT [Catalytic activity/Vol] 26 U/L Normal 16-63 [facility] Comment on above: Performed By: #### L IPA, CMP, TERRENCE ####[facility] Ddewhqivre2651 [place] [address]Dr. Chrissy Frazier Anion gap [Moles/Vol] 19.5 mmol/L Normal [facility] Comment on above: Performed By: #### L IPA, CMP, TERRENCE ####[facility] Qtntvguimz[address] [place], [place] [address]Dr. Chrissy Frazier AST [Catalytic activity/Vol] 19 U/L Normal 15-37 [facility] Comment on above: Performed By: #### L IPA, CMP, TERRENCE ####[facility] Znctycqkkq2976[address] [place], [place] [address]Dr. Chrissy Frazier Bilirubin [Mass/Vol] 0.7 mg/dL Normal 0.2-1.0 [facility] Comment on above: Performed By: #### L IPA, CMP, TERRENCE ####[facility] Vrsnuxolqi5228 [place] [address]Dr. Chrissy Frazier Calcium [Mass/Vol] 9.6 mg/dL Normal 8.5-10.1 [facility] Comment on above: Performed By: #### L IPA, CMP, TERRENCE ####[facility] Figpjnvedq9858 [place] [address]Dr. Chrissy Frazier Chloride [Moles/Vol] 102 mmol/L Normal 98-107 [facility] Comment on above: Performed By: #### L IPA, CMP, TERRENCE ####[facility] Aeplergptw0720 [place] [address]Dr. Chrissy Frazier CO2 [Moles/Vol] 19.1 mmol/L Critically low 21.0-32.0 [facility] Comment on above: Performed By: #### L IPA CMP, TERRENCE ####[facility] Ylegbsxgxw0021 [place] [address]Dr. Chrissy Frazier Creatinine [Mass/Vol] 1.47 mg/dL Critically high 0.70-1.30 [facility] Comment on above: Performed By: #### L IPA CMP, TERRENCE ####[facility] Ftwaywohel582[address] [place], [place] [address]Dr. Chrissy Freddie EGFR-AF TUVALUAN >60 Normal >=60 [facility] Comment on above: Performed By: #### L IPA CMP, TERRENCE ####[facility] Zqaalwfmvo3[address] [place], [place] [address]Dr. Tishrowan Freddie EGFR-NON AF TUVALUAN 56 mL/min/1.73m2 Critically low >=60 [facility] Comment on above: Performed By: #### L IPA CMP, TERRENCE ####[facility] Etyioyucwz85[address] [place], [place] [address]Dr. Chrissy Frazier Globulin (S) [Mass/Vol] 4.3 g/dL Normal [facility] Comment on above: Performed By: #### L IPA CMP, TERRENCE ####[facility] Pvomudsnyp4[address] [place], [place] [address]Dr. Chrissy Frazier Glucose [Mass/Vol] 189 mg/dL Critically high 74-106 [facility] Comment on above: Performed By: #### L IPA CMP, TERRENCE ####[facility] Zzszcqysdh8[address] [place], [place] [address]Dr. Chrissy Frazier Potassium [Moles/Vol] 4.6 mmol/L Normal 3.5-5.1 [facility] Comment on above: Performed By: #### L IPA CMP, TERRENCE ####[facility] Dzcyeccjif325[address] [place], [place] [address]Dr. Chrissy Frazier Protein [Mass/Vol] 8.5 g/dL Critically high 6.4-8.2 [facility] Comment on above: Performed By: #### L IPA CMP, TERRENCE ####[facility] Vmhcdyqnrt18[address] [place] [id number]. Chrissy Freddie Sodium [Moles/Vol] 136 mmol/L Normal 136-145 [facility] Comment on above: Performed By: #### L IPA, CMP, TERRENCE ####[facility] Cbqnzifltj7057 [place] [address]Dr. Chrissy Freddie Urea nitrogen [Mass/Vol] 16.0 mg/dL Normal 7.0-18.0 [facility] Comment on above: Performed By: #### L IPA, CMP, TERRENCE ####[facility] Dbpcjqdgkn2072 [place] [address]Dr. Tishrowan Frazier Urea nitrogen/Creatinine [Mass ratio] 10.9 mg/mg Normal [facility] Comment on above: Performed By: #### L IPA, CMP, TERRENCE ####[facility] Cafobduehv95[address] [place], [place] [address]Dr. Tishrowan Frazier AMYLASEon 09-03-2022 Amylase [Catalytic activity/Vol] 25 U/L Normal 25-115 [facility] Comment on above: Performed By: #### L IPA, TERRENCE, CMP ####[facility] Zqjdswxwxn14[address] [place], [place] [address]Dr. Chrissy Frazier CBC AUTO DIFFon 09-03-2022 BASO # 0.0 103/ul Normal 0.0-0.1 [facility] Comment on above: Performed By: #### C BC ####[facility] Sbrlcodcql8[address] [place], [place] [address]Dr. Chrissy Frazier Basophils/100 WBC (Bld) 0.1 % Critically low 0.2-2.0 [facility] Comment on above: Performed By: #### C BC ####[facility] Nmoplpnnyd5[address] [place], [place] [address]Dr. Chrissy Frazier EO # 0.0 103/ul Normal 0.0-0.7 [facility] Comment on above: Performed By: #### C BC ####[facility] Ydwsitqpqr[address] [place], [place] [address]Dr. Chrissy Frazier Eosinophils/100 WBC (Bld) 0.1 % Critically low 0.9-7.0 [facility] Comment on above: Performed By: #### C BC ####[facility] Lhqlddlpkb25[address] [place] [address]Dr. Chrissy Frazier Erythrocyte distribution width (RBC) [Ratio] 14.0 % Normal 11.0-15.0 [facility] [facility] Comment on above: Performed By: #### C BC ####[facility] Fkeoxassws[address] [place] [address]Dr. Chrissy Frazier Hematocrit (Bld) [Volume fraction] 42.5 % Normal 42.0-54.0 [facility] Comment on above: Performed By: #### C BC ####[facility] Mvayaexbkh[address] [place], [place] [address]Dr. Chrissy Frazier Hemoglobin (Bld) [Mass/Vol] 14.1 g/dL Normal 14.0-18.0 [facility] Comment on above: Performed By: #### C BC ####[facility] Eufxvajlok[address] [place], [place] [address]Dr. Chrissy Frazier IG # 0.06 10e3/ul Critically high 0.00-0.03 [facility] Comment on above: Performed By: #### C BC ####[facility] Iwjouqofal[address] [place], [place] [address]Dr. Chrissy Frazier IG % 0.4 % Normal 0.0-0.5 [facility] Comment on above: Performed By: #### C BC ####[facility] Bgjuxixptm50[address] [place], [place] [address]Dr. Chrissy Frazier LYMPH # 2.5 103/ul Normal 1.2-3.8 [facility] Comment on above: Performed By: #### C BC ####[facility] Hazfzoyxhp299[address] [place], [place] [address]Dr. Chrissy Frazier Lymphocytes/100 WBC (Bld) 16.3 % Critically low 20.5-60.0 [facility] Comment on above: Performed By: #### C BC ####[facility] Osciunfxqf7743[address] [place], [place] [address]Dr. Chrissy Frazier MANUAL DIFF REQ NO Normal [facility] Comment on above: Performed By: #### C BC ####[facility] Eeychzeqhr[address] [place] [id number] Chrissy Freddie MCH (RBC) [Entitic mass] 28.1 pg Normal 25.9-34.0 [facility] Comment on above: Performed By: #### C BC ####[facility] Yqeyblstje[address] [place] [address]Dr. Chrissy Frazier MCHC (RBC) [Mass/Vol] 33.2 g/dL Normal 29.9-35.2 [facility] Comment on above: Performed By: #### C BC ####[facility] Fnrmxdvujf29[address] [place] [address]DrNancy Frazier MCV (RBC) [Entitic vol] 84.8 fL Normal 80.0-94.0 [facility] Comment on above: Performed By: #### C BC ####[facility] Rdjwdtiref9346[address] [place], [place] [address]DrNancy Frazier MONO # 1.1 103/ul Critically high 0.3-0.8 [facility] Comment on above: Performed By: #### C BC ####[facility] Tusbftmgpm33[address] [place], [place] [address]DrNancy Frazier Monocytes/100 WBC (Bld) 7.4 % Normal 1.7-12.0 [facility] Comment on above: Performed By: #### C BC ####[facility] Nxcmtujfql23[address] [place], [place] [address]DrNancy Frazier NEUT # 11.5 103/ul Critically high 1.4-6.5 [facility] Comment on above: Performed By: #### C BC ####[facility] Ajoavokzif[address] [place], [place] [id number] Frazier Neutrophils/100 WBC (Bld) 75.7 % Critically high 43.0-75.0 [facility] Comment on above: Performed By: #### C BC ####[facility] Tbuqeelppu48[address] [place], [place] [address]DrNancy Frazier Platelet mean volume (Bld) [Entitic vol] 10.6 fL Normal 9.5-13.5 [facility] Comment on above: Performed By: #### C BC ####[facility] Gxgyndakrq38[address] [place] [address]Dr. Chrissy Frazier PLT 310 103/ul Normal 150-450 [facility] Comment on above: Performed By: #### C BC ####[facility] Kqgqpbonzh72[address] [place] [address]Dr. Chrissy Frazier RBC 5.01 106/ul Normal 4.70-6.10 [facility] Comment on above: Performed By: #### C BC ####[facility] Oltsyfiorf4[address] [place] [address]Dr. Chrissy Frazier WBC 15.2 103/ul Critically high 4.0-11.0 [facility] Comment on above: Performed By: #### C BC ####[facility] Lwdhewxwnf0760[address] [place], [place] [address]Dr. Chrissy Frazier LIPASEon 09-03-2022 Lipase [Catalytic activity/Vol] 46.0 U/L Critically low 73.0-393.0 [facility] Comment on above: Performed By: #### L TERRENCE VICTORIA, CMP ####[facility] Emyxdlffio9394[address] [place], [place] [address]Dr. Chrissy Frazier PROF 14(COMP METB)on 022 Albumin [Mass/Vol] 3.7 g/dL Normal 3.4-5.0 [facility] Comment on above: Performed By: #### L TERRENCE VICTORIA, CMP ####[facility] Gnstixdbya648[address] [place], [place] [address]Dr. Chrissy Frazier Albumin/Globulin [Mass ratio] 1.0 {ratio} Normal [facility] Comment on above: Performed By: #### L TERRENCE VICTORIA, CMP ####[facility] Grluylyydn99[address] [place], [place] [address]Dr. Chrissy Frazier ALP [Catalytic activity/Vol] 65 U/L Normal 46-116 [facility] Comment on above: Performed By: #### L TERRENCE VICTORIA, CMP ####[facility] Mgwjqcvfgz53[address] [place] [address]Dr. Chrissy Frazier ALT [Catalytic activity/Vol] 42 U/L Normal 16-63 [facility] Comment on above: Performed By: #### L TERRENCE VICTORIA, CMP ####[facility] Qxjjgnajsk6731 [place] [address]Dr. Chrissy Frazier Anion gap [Moles/Vol] 14.4 mmol/L Normal [facility] Comment on above: Performed By: #### L TERRENCE VICTORIA, CMP ####[facility] Ofkriwnykf026[address] [place], [place] [address]Dr. Chrissy Frazier AST [Catalytic activity/Vol] 16 U/L Normal 15-37 [facility] Comment on above: Performed By: #### L TERRENCE VICTORIA, CMP ####[facility] Odyafxvegt8087[address] [place], [place] [address]Dr. Chrissy Frazier Bilirubin [Mass/Vol] 0.4 mg/dL Normal 0.2-1.0 [facility] Comment on above: Performed By: #### L TERRENCE VICTORIA, CMP ####[facility] Efcepsfutu7[address] [place], [place] [address]Dr. Chrissy Frazier Calcium [Mass/Vol] 8.7 mg/dL Normal 8.5-10.1 [facility] Comment on above: Performed By: #### L TERRENCE VICTORIA, CMP ####[facility] Pwrshfdhdl9[address] [place], [place] [address]Dr. Chrissy Frazier Chloride [Moles/Vol] 105 mmol/L Normal 98-107 [facility] Comment on above: Performed By: #### L TERRENCE VICTORIA, CMP ####[facility] Xxcnywnhry8[address] [place] [address]Dr. Chrissy Frazier CO2 [Moles/Vol] 22.6 mmol/L Normal 21.0-32.0 [facility] Comment on above: Performed By: #### L TERRENCE VICTORIA, CMP ####[facility] Mmjfjnkhsu9404[address] [place], [place] [address]Dr. Chrissy Frazier Creatinine [Mass/Vol] 1.11 mg/dL Normal 0.70-1.30 [facility] Comment on above: Performed By: #### L IPA TERRENCE, CMP ####[facility] Itcwzpczoh[address] [place] [id number]. Chrissy Frazier EGFR-AF TUVALUAN >60 Normal >=60 [facility] Comment on above: Performed By: #### L IPA TERRENCE, CMP ####[facility] Kqqnrslnyd5[address] [place] [id number]. Chrissy Frazier EGFR-NON AF TUVALUAN >60 Normal >=60 [facility] Comment on above: Performed By: #### L IPA TERRENCE, CMP ####[facility] Wecsgnsdnz5224 [place] [address]Dr. Chrissy Frazier Globulin (S) [Mass/Vol] 3.7 g/dL Normal [facility] Comment on above: Performed By: #### L JULIEN TERRENCE, CMP ####[facility] Akiapkbypk80[address] [place] [address]Dr. Chrissy Frazier Glucose [Mass/Vol] 121 mg/dL Critically high 74-106 [facility] Comment on above: Performed By: #### L JULIEN TERRENCE, CMP ####[facility] Qcbdvetrcp9392 [place] [address]Dr. Chrissy Frazier Potassium [Moles/Vol] 4.0 mmol/L Normal 3.5-5.1 [facility] Comment on above: Performed By: #### L JULIEN TERRENCE, CMP ####[facility] Ahcixrlcyh[address] [place] [address]Dr. Chrissy Frazier Protein [Mass/Vol] 7.4 g/dL Normal 6.4-8.2 [facility] Comment on above: Performed By: #### L JULIEN TERRENCE, CMP ####[facility] Tsnflpweqe25[address] [place] [address]Dr. Chrissy Frazier Sodium [Moles/Vol] 138 mmol/L Normal 136-145 [facility] Comment on above: Performed By: #### L IPA TERRENCE, CMP ####[facility] Podnukdgzv7[address] [place] [address]Dr. Chrissy Frazier Urea nitrogen [Mass/Vol] 6.0 mg/dL Critically low 7.0-18.0 [facility] Comment on above: Performed By: #### L IPA, TERRENCE, CMP ####[facility] Obicqflfuf[address]26[address] [place], [place] [address]Dr. Chrissy Frazier Urea nitrogen/Creatinine [Mass ratio] 5.4 mg/mg Normal [facility] Comment on above: Performed By: #### L IPA, TERRENCE, CMP ####[facility] Obtuldmgxi60[address] [place], [place] [address]Dr. Chrissy Frazier AMYLASEon 09-02-2022 Amylase [Catalytic activity/Vol] 29 U/L Normal 25-115 [facility] Comment on above: Performed By: #### A MY, CMP, LIPA ####[facility] Fepekbqbay49[address] [place], [place] [address]Dr. Chrissy Frazier CBC AUTO DIFFon 09-02-2022 BASO # 0.1 103/ul Normal 0.0-0.1 [facility] Comment on above: Performed By: #### C BC ####[facility] Ewtbjhclyj[address] [place], [place] [address]Dr. Chrissy Frazier Basophils/100 WBC (Bld) 0.4 % Normal 0.2-2.0 [facility] Comment on above: Performed By: #### C BC ####[facility] Gaelnhtftz8525[address] [place], [place] [address]Dr. Chrissy Frazier EO # 0.1 103/ul Normal 0.0-0.7 [facility] Comment on above: Performed By: #### C BC ####[facility] Opxwviopax27[address] [place], [place] [address]Dr. Chrissy Frazier Eosinophils/100 WBC (Bld) 0.7 % Critically low 0.9-7.0 [facility] Comment on above: Performed By: #### C BC ####[facility] Fodsushlqm[address] [place], [place] [address]Dr. Chrissy Frazier Erythrocyte distribution width (RBC) [Ratio] 13.7 % Normal 11.0-15.0 [facility] Comment on above: Performed By: #### C BC ####[facility] [address]jggrvdb[address] [place] [id number]. Chrissy Frazier Hematocrit (Bld) [Volume fraction] 48.3 % Normal 42.0-54.0 [facility] Comment on above: Performed By: #### C BC ####[facility] Rmixlerpls44[address] [place] [id number]. Chrissy Frazier Hemoglobin (Bld) [Mass/Vol] 16.0 g/dL Normal 14.0-18.0 [facility] Comment on above: Performed By: #### C BC ####[facility] Cfdpyukcdb[address] [place] [id number]. Chrissy Freddie IG # 0.09 10e3/ul Critically high 0.00-0.03 [facility] Comment on above: Performed By: #### C BC ####[facility] Xkwefclmqq95[address] [place] [address]Dr. Chrissy Frazier IG % 0.5 % Normal 0.0-0.5 [facility] Comment on above: Performed By: #### C BC ####[facility] Emetbmawdd[address] [place] [address]Dr. Tishrowan Frazier LYMPH # 3.7 103/ul Normal 1.2-3.8 [facility] Comment on above: Performed By: #### C BC ####[facility] Ifbqewcrvx7[address] [place] [address]Dr. Tishrowan Frazier Lymphocytes/100 WBC (Bld) 21.5 % Normal 20.5-60.0 [facility] Comment on above: Performed By: #### C BC ####[facility] Ukhxplzzaz5[address] [place] [id number]. Tishrowan Frazier MANUAL DIFF REQ NO Normal [facility] Comment on above: Performed By: #### C BC ####[facility] Euiosngijh1846 [place] [address]Dr. Chrissy Freddie MCH (RBC) [Entitic mass] 28.1 pg Normal 25.9-34.0 [facility] Comment on above: Performed By: #### C BC ####[facility] Nyueffexrw[address]97 [place] [id number]. Chrissy Frazier MCHC (RBC) [Mass/Vol] 33.1 g/dL Normal 29.9-35.2 [facility] Comment on above: Performed By: #### C BC ####[facility] Sbcimgtcxt45[address] [place] [id number]. Chrissy Frazier MCV (RBC) [Entitic vol] 84.7 fL Normal 80.0-94.0 [facility] Comment on above: Performed By: #### C BC ####[facility] Sjvjzypkcb7[address] [place] [id number]. Chrissy Frazier MONO # 0.7 103/ul Normal 0.3-0.8 [facility] Comment on above: Performed By: #### C BC ####[facility] Njosytntim9268 [place] [address]Dr. Chrissy Frazier Monocytes/100 WBC (Bld) 4.2 % Normal 1.7-12.0 [facility] Comment on above: Performed By: #### C BC ####[facility] Q[address]aon[address] [place], [place] [address]Dr. Chrissy Frazier NEUT # 12.4 103/ul Critically high 1.4-6.5 [facility] Comment on above: Performed By: #### C BC ####[facility] Wsiflnmvjc7867 [place] [id number]. Chrissy Frazier Neutrophils/100 WBC (Bld) 72.7 % Normal 43.0-75.0 [facility] Comment on above: Performed By: #### C BC ####[facility] Wqwttrjnky4768 [place] [id number]. Chrissy Frazier Platelet mean volume (Bld) [Entitic vol] 10.9 fL Normal 9.5-13.5 [facility] Comment on above: Performed By: #### C BC ####[facility] Ndvilxycfb3299 [place] [id number]. Chrissy Freddie PLT 386 103/ul Normal 150-450 [facility] Comment on above: Performed By: #### C BC ####[facility] Wmncwcefdx2285 [place], [place] [address]Hc. Chrissy Frazier RBC 5.70 106/ul Normal 4.70-6.10 [facility] Comment on above: Performed By: #### C BC ####[facility] Vgcskstzcm27[address] [place] [id number]. Chrissy Frazier WBC 17.0 103/ul Critically high 4.0-11.0 [facility] Comment on above: Performed By: #### C BC ####[facility] Fwewapjmun6772 [place] [id number]. Chrissy Frazier Covid-19 PCR (CVDTBH)on 08-21 SARS-CoV-2 (COVID-19) RNA RHIANNON+probe Ql (Unsp spec) Not detected Normal NOT DETECTED [facility] Comment on above: Result Comment: When [...] for this test is supported by the [place] of Health and Human Service's declaration that [...] be used). Performed By: #### C VDTBH ####[facility] Ncsbttyllw4965 [place] [id number]. Chrissy Frazier LACTATE/LACTIC ACIDon 2021 Lactate [Moles/Vol] 7.1 mmol/L Critically high 0.4-1.9 [facility] Comment on above: Performed By: #### L ACT ####[facility] Domystimmw5905 [place] [id number]. Chrissy Frazier Lactate [Moles/Vol] 8.6 mmol/L Critically high 0.4-1.9 [facility] Comment on above: Performed By: #### L ACT ####[facility] Hijyzspqzb892[address] [place], [place] [address]Dr. Chrissy Frazier LIPASEon 09-02-2022 Lipase [Catalytic activity/Vol] 60.0 U/L Critically low 73.0-393.0 [facility] Comment on above: Performed By: #### A MY, CMP, LIPA ####[facility] Lzlsshousz[address] [place], [place] [address]Dr. Chrissy Frazier POINT OF CARE GLUCOSEon 08-21 Glucose [Mass/Vol] 140 mg/dL Critically high 74-106 [facility] Comment on above: Performed By: #### P OCGLUC ####[facility] Ezmbuyphvk715[address] [place], [place] [address]Dr. Chrissy Frazier PROF 14(COMP METB)on 022 Albumin [Mass/Vol] 4.3 g/dL Normal 3.4-5.0 [facility] Comment on above: Performed By: #### A MY, CMP, LIPA ####[facility] Umprngbhmw0[address] [place], [place] [address]Dr. Chrissy Frazier Albumin/Globulin [Mass ratio] 1.0 {ratio} Normal [facility] Comment on above: Performed By: #### A MY, CMP, LIPA ####[facility] Enlvudjjly5[address] [place] [address]Dr. Chrissy Frazier ALP [Catalytic activity/Vol] 82 U/L Normal 46-116 [facility] Comment on above: Performed By: #### A MY, CMP, LIPA ####[facility] Kdgsrnzqib6193 [place] [address]Dr. Chrissy Frazier ALT [Catalytic activity/Vol] 48 U/L Normal 16-63 [facility] Comment on above: Performed By: #### A MY, CMP, LIPA ####[facility] Lybjnxpoft9798 [place] [address]Dr. Chrissy Frazier Anion gap [Moles/Vol] 25.3 mmol/L Normal [facility] Comment on above: Performed By: #### A MY, CMP, LIPA ####[facility] Cctffdxmei4569 [place] [address]Dr. Chrissy Frazier AST [Catalytic activity/Vol] 33 U/L Normal 15-37 [facility] Comment on above: Performed By: #### A MY, CMP, LIPA ####[facility] Eiejitlibn2663[address] [place], [place] [address]Dr. Chrissy Frazier Bilirubin [Mass/Vol] 0.7 mg/dL Normal 0.2-1.0 [facility] Comment on above: Performed By: #### A MY, CMP, LIPA ####[facility] Vslvmiuzie[address] [place], [place] [address]Dr. Chrissy Frazier Calcium [Mass/Vol] 9.5 mg/dL Normal 8.5-10.1 [facility] Comment on above: Performed By: #### A MY, CMP, LIPA ####[facility] Yegwpssqky4[address] [place], [place] [address]Dr. Chrissy Frazier Chloride [Moles/Vol] 100 mmol/L Normal 98-107 [facility] Comment on above: Performed By: #### A MY, CMP, LIPA ####[facility] Jczhvbflgn65[address] [place], [place] [address]Dr. Chrissy Frazier CO2 [Moles/Vol] 14.2 mmol/L Critically low 21.0-32.0 [facility] Comment on above: Performed By: #### A MY, CMP, LIPA ####[facility] Fijturqwqo13[address] [place], [place] [address]Dr. Chrissy Frazier Creatinine [Mass/Vol] 1.70 mg/dL Critically high 0.70-1.30 [facility] Comment on above: Performed By: #### A MY, CMP, LIPA ####[facility] Krwekxaojm6[address] [place], [place] [address]Dr. Chrissy Frazier EGFR-AF TUVALUAN 57 mL/min/1.73m2 Critically low >=60 [facility] Comment on above: Performed By: #### A MY, CMP, LIPA ####[facility] Xiddksipyc15[address] [place] [id number]. Chrissy Frazier EGFR-NON AF TUVALUAN 47 mL/min/1.73m2 Critically low >=60 [facility] Comment on above: Performed By: #### A MY, CMP, LIPA ####[facility] Tscxtklwsx0788 [place] [address]Dr. Chrissy Frazier Globulin (S) [Mass/Vol] 4.2 g/dL Normal [facility] Comment on above: Performed By: #### A MY, CMP, LIPA ####[facility] Vbcjglcuzk0118 [place] [address]Dr. Chrissy Farzier Glucose [Mass/Vol] 212 mg/dL Critically high 74-106 [facility] Comment on above: Performed By: #### A MY, CMP, LIPA ####[facility] Aeuitrzagf7190 [place] [address]Dr. Chrissy Frazier Potassium [Moles/Vol] 3.5 mmol/L Normal 3.5-5.1 [facility] Comment on above: Performed By: #### A MY, CMP, LIPA ####[facility] Verrqvzrcs2910 [place] [address]Dr. Chrissy Frazier Protein [Mass/Vol] 8.5 g/dL Critically high 6.4-8.2 [facility] Comment on above: Performed By: #### A MY, CMP, LIPA ####[facility] Lvtwjqmitw6784 [place] [address]Dr. Chrissy Frazier Sodium [Moles/Vol] 136 mmol/L Normal 136-145 [facility] Comment on above: Performed By: #### A MY, CMP, LIPA ####[facility] Spmfcyxwyp3078 [place] [address]Dr. Chrissy Frazier Urea nitrogen [Mass/Vol] 9.0 mg/dL Normal 7.0-18.0 [facility] Comment on above: Performed By: #### A MY, CMP, LIPA ####[facility] Yyhtfgmxll9766 [place] [address]Dr. Yilan Frazier Urea nitrogen/Creatinine [Mass ratio] 5.3 mg/mg Normal [facility] Comment on above: Performed By: #### A MY, CMP, LIPA ####[facility] Pnpwrunmxt[address] [place], [place] [address]Dr. Chrissy Frazier AMYLASEon 07-07-2022 Amylase [Catalytic activity/Vol] 33 U/L Normal 25-115 [facility] Comment on above: Performed By: #### C MP, TERRENCE, BNP, LIPA ####[facility] Yrraajfxtu0542[address] [place], [place] [address]Dr. Chrissy Frazier BNPon 07-07-2022 Natriuretic peptide B (Bld) [Mass/Vol] 29.0 pg/mL Normal <=450.0 [facility] Comment on above: Performed By: #### C MP, TERRENCE, BNP, LIPA ####[facility] Qjlqbmztxo8712[address] [place], [place] [address]Dr. Chrissy Frazier CBC AUTO DIFFon 07-07-2022 BASO # 0.0 103/ul Normal 0.0-0.1 [facility] Comment on above: Performed By: #### C BC ####[facility] Tdpcjzorps[address] [place], [place] [address]Dr. Chrissy Frazier Basophils/100 WBC (Bld) 0.4 % Normal 0.2-2.0 [facility] Comment on above: Performed By: #### C BC ####[facility] Bmooountqh9785[address] [place], [place] [address]Dr. Chrissy Frazier EO # 0.3 103/ul Normal 0.0-0.7 [facility] Comment on above: Performed By: #### C BC ####[facility] Uccjftvlid1210[address] [place], [place] [address]Dr. Chrissy Frazier Eosinophils/100 WBC (Bld) 3.0 % Normal 0.9-7.0 [facility] Comment on above: Performed By: #### C BC ####[facility] Asphslrxxw265[address] [place], [place] [address]Dr. Chrissy Frazier Erythrocyte distribution width (RBC) [Ratio] 14.0 % Normal 11.0-15.0 [facility] Comment on above: Performed By: #### C BC ####[facility] Jrtsvcqekd1155 [place] [address]DrNancy Frazier Hematocrit (Bld) [Volume fraction] 42.8 % Normal 42.0-54.0 [facility] Comment on above: Performed By: #### C BC ####[facility] Rnzvrtvquh3132 [place] [address]DrNancy Frazier Hemoglobin (Bld) [Mass/Vol] 14.3 g/dL Normal 14.0-18.0 [facility] Comment on above: Result Comment: IV F LUIDS RUNNING Performed By: #### C BC ####[facility] Fypgfsmywo7974[address] [place], [place] [address]DrNancy Frazier IG # 0.05 10e3/ul Critically high 0.00-0.03 [facility] Comment on above: Performed By: #### C BC ####[facility] Plvbkoclnk14[address] [place], [place] [address]DrNancy Frazier IG % 0.5 % Normal 0.0-0.5 [facility] Comment on above: Performed By: #### C BC ####[facility] Ddfrykrvoc5[address] [place], [place] [address]DrNancy Frazier LYMPH # 2.4 103/ul Normal 1.2-3.8 [facility] Comment on above: Performed By: #### C BC ####[facility] Npdtsyniet4387[address] [place], [place] [address]DrNancy Frazier Lymphocytes/100 WBC (Bld) 25.5 % Normal 20.5-60.0 [facility] Comment on above: Performed By: #### C BC ####[facility] Yorukrvclh[address] [place], [place] [address]DrNancy Frazier MANUAL DIFF REQ NO Normal [facility] Comment on above: Performed By: #### C BC ####[facility] Ukrrbzrvri9171 [place] [address]DrNancy Frazier MCH (RBC) [Entitic mass] 28.5 pg Normal 25.9-34.0 [facility] Comment on above: Performed By: #### C BC ####[facility] Gmlkzeklxa7150 [place] [address]Dr. Chrissy Frazier MCHC (RBC) [Mass/Vol] 33.4 g/dL Normal 29.9-35.2 [facility] Comment on above: Performed By: #### C BC ####[facility] Jbbjevxztw0933 [place] [address]Dr. Chrissy Frazier MCV (RBC) [Entitic vol] 85.3 fL Normal 80.0-94.0 [facility] Comment on above: Performed By: #### C BC ####[facility] Lqpvqqfmcf[address] [place], [place] [address]DrNancy Frazier MONO # 0.7 103/ul Normal 0.3-0.8 The [facility] Comment on above: Performed By: #### C BC ####[facility] Uqycmjigvb[address] [place], [place] [address]Dr. Chrissy Frazier Monocytes/100 WBC (Bld) 7.8 % Normal 1.7-12.0 [facility] Comment on above: Performed By: #### C BC ####[facility] Lamehlftfj[address] [place], [place] [address]Dr. Chrissy Frazier NEUT # 5.8 103/ul Normal 1.4-6.5 [facility] Comment on above: Performed By: #### C BC ####[facility] Frbaprkmxg0380[address] [place], [place] [address]Dr. Chrissy Frazier Neutrophils/100 WBC (Bld) 62.8 % Normal 43.0-75.0 The [facility] Comment on above: Performed By: #### C BC ####[facility] Scxcbxefzt5415[address] [place], [place] [address]Dr. Chrissy Frazier Platelet mean volume (Bld) [Entitic vol] 10.8 fL Normal 9.5-13.5 The [facility] Comment on above: Performed By: #### C BC ####[facility] Ihqbcsydpr01[address] [place], [place] [address]Dr. Chrissy Frazier PLT 310 103/ul Normal 150-450 The [facility] Comment on above: Performed By: #### C BC ####[facility] Iolvuogvmx8987 [place] [id number]. Chrissy Frazier RBC 5.02 106/ul Normal 4.70-6.10 The [facility] Comment on above: Performed By: #### C BC ####[facility] Qoshopdhnr3488 [place], [place] [address]Mk. Chrissy Frazier WBC 9.3 103/ul Normal 4.0-11.0 [facility] Comment on above: Performed By: #### C BC ####[facility] Xmjnwdwhko9857 [place] [id number]. Tishrowan Freddie CULTURE URINEon 07-07-2022 CULTURE URINE Culture Observations: NO GROWTH. Normal The [facility] Comment on above: Performed By: #### U RCX ####[facility] Hdinmoqsta4936 [place] [phone]. Chrissy Frazier DRUG SCREEN RAPID (URINE)on 07-07-2022 AMP Negative Normal NEGATIVE [facility] Comment on above: Performed By: #### D RUGRPD ####[facility] Gqlbkhjbkb3230 [place] [id number]. Chrissy Frazier BAR Negative Normal NEGATIVE [facility] Comment on above: Performed By: #### D RUGRPD ####[facility] Ycakrpjkba3266 [place] [phone]. Chrissy Frazier BUP Negative Normal NEGATIVE The [facility] Comment on above: Performed By: #### D RUGRPD ####[facility] Ogfrmhzmjw8903 [place] [phone]. Chrissy Frazier BZO Positive Abnormal NEGATIVE The [facility] Comment on above: Performed By: #### D RUGRPD ####[facility] Xqrqhflqlt3216 [place] [phone]. Chrissy Frazier LAUREN Negative Normal NEGATIVE The [facility] Comment on above: Performed By: #### D RUGRPD ####[facility] Evwptulelu7596 [place] [phone]. Chrissy Frazier CUT-OFFS SEE BELOW Normal The [facility] Comment on above: Result Comment: AMP (Amphetamine): 500ng/mL, BAR (Barbituates): 200 ng/mL, BZO (Benzodiazepines): 150 ng/mL, BUP (Buprenorphine): 10 ng/mL, LAUREN (Cocaine): 150 ng/mL, mAMP (Methamphetamine): 500 ng/mL, MTD (Methadone): 200 ng/mL, OPI (Opiates): 100 ng/mL, OXY (Oxycodone): 100 ng/mL, PCP (Phencyclidine): 25 ng/mL, PPX (Propoxyphene): 300 ng/mL, THC (Cannabinoids): 50 ng/mL, TCA (Trycyclic Antidepressants): 300 ng/mL Performed By: #### D RUGRPD ####[facility] Eiekzmikdj9211[address] [place], [place] [address]Dr. [facility] DRUG CUT HEADER DRUG CLASS TEST SYSTEM CUT-OFF CONCENTRATIONS ARE FOLLOWS: Normal The [facility] Comment on above: Performed By: #### D RUGRPD ####[facility] Ilgixwsppj5384[address] [place], [place] [address]Dr. Tishrowan [facility] mAMP Negative Normal NEGATIVE The [facility] Comment on above: Performed By: #### D RUGRPD ####[facility] Xvthhutdtd6903[address] [place], [place] [address]Dr. Chrissy [facility] MTD Negative Normal NEGATIVE The [facility] Comment on above: Performed By: #### D RUGRPD ####[facility] Dzbhmqokcl8129[address] [place], [place] [address]Dr. Chrissy [facility] OPI Negative Normal NEGATIVE The [facility] Comment on above: Performed By: #### D RUGRPD ####[facility] Wieksqcjop0656[address] [place], [place] [address]Dr. Chrissy Frazier OXY Negative Normal NEGATIVE The [facility] Comment on above: Performed By: #### D RUGRPD ####[facility] Jgeolimsfw1254[address] [place], [place] [address]Dr. Chrissy [facility] PCP Negative Normal NEGATIVE The [facility] Comment on above: Performed By: #### D RUGRPD ####[facility] Ekrooqkbdp[address] [place], [place] [id number]. Chrissy Freddie PPX Negative Normal NEGATIVE The [facility] Comment on above: Performed By: #### D RUGRPD ####[facility] Tasqordvfx27[address] [place] [address]Dr. Chrissy Freddie TCA Positive Abnormal NEGATIVE The [facility] Comment on above: Performed By: #### D RUGRPD ####[facility] Npqmqxgkex0383 [place] [address]Dr. Chrissy Freddie THC Positive Abnormal NEGATIVE The [facility] Comment on above: Performed By: #### D RUGRPD ####[facility] Uwybgctxoy3792 [place] [address]Dr. Tishrowan Frazier LIPASEon 07-07-2022 Lipase [Catalytic activity/Vol] 118.0 U/L Normal 73.0-393.0 [facility] Comment on above: Performed By: #### L IPA ####[facility] Hnbikjteto3053[address] [place], [place] [address]Dr. Chrissy Frazier Lipase [Catalytic activity/Vol] 114.0 U/L Normal 73.0-393.0 [facility] Comment on above: Performed By: #### C MP, TERRENCE, BNP, LIPA ####[facility] Qjykwohset216[address] [place], [place] [address]Dr. Chrissy Frazier PROF 14(COMP METB)on 022 Albumin [Mass/Vol] 3.4 g/dL Normal 3.4-5.0 [facility] Comment on above: Performed By: #### C MP, TERRENCE, BNP, LIPA ####[facility] Hfyjjwanhe5813 [place] [address]Dr. Chrissy Frazier Albumin/Globulin [Mass ratio] 1.1 {ratio} Normal [facility] Comment on above: Performed By: #### C MP, TERRENCE, BNP, LIPA ####[facility] Etscmvdcdb5952 [place] [address]Dr. Chrissy Frazier ALP [Catalytic activity/Vol] 68 U/L Normal 46-116 The [facility] Comment on above: Performed By: #### C MP, TERRENCE, BNP, LIPA ####[facility] Kknnwpgnbh4760 [place] [address]Dr. Chrissy Frazier ALT [Catalytic activity/Vol] 93 U/L Critically high 16-63 The [facility] Comment on above: Performed By: #### C MP, TERRENCE, BNP, LIPA ####[facility] Lrtdotcqmx2268 [place] [address]Dr. Chrissy Frazier Anion gap [Moles/Vol] 14.4 mmol/L Normal The [facility] Comment on above: Performed By: #### C MP, TERRENCE, BNP, LIPA ####[facility] Mowkejfrex2654 [place] [address]Dr. Chrissy Frazier AST [Catalytic activity/Vol] 33 U/L Normal 15-37 The [facility] Comment on above: Performed By: #### C MP, TERRENCE, BNP, LIPA ####[facility] Wazpohgxyg8416 [place] [address]Dr. Chrissy Frazier Bilirubin [Mass/Vol] 0.9 mg/dL Normal 0.2-1.0 [facility] Comment on above: Performed By: #### C MP, TERRENCE, BNP, LIPA ####[facility] Xtnmdxowme1242[address] [place], [place] [address]Dr. Chrissy Frazier Calcium [Mass/Vol] 8.2 mg/dL Critically low 8.5-10.1 Th e [facility] Comment on above: Performed By: #### C MP, TERRENCE, BNP, LIPA ####[facility] Nrqnyklinb113[address] [place], [place] [address]Dr. Chrissy Frazier Chloride [Moles/Vol] 103 mmol/L Normal 98-107 The [facility] Comment on above: Performed By: #### C MP, TERRENCE, BNP, LIPA ####[facility] Ufnlfjinwt8554[address] [place], [place] [address]Dr. Chrissy Frazier CO2 [Moles/Vol] 22.9 mmol/L Normal 21.0-32.0 The [facility] Comment on above: Performed By: #### C MP, TERRENCE, BNP, LIPA ####[facility] Rrsumzaaci4267[address] [place], [place] [address]Dr. Chrissy Frazier Creatinine [Mass/Vol] 1.07 mg/dL Normal 0.70-1.30 The [facility] Comment on above: Performed By: #### C MP, TERRENCE, BNP, LIPA ####[facility] Scnrnluvuq1679 [place] [address]Dr. Chrissy Frazier EGFR-AF TUVALUAN >60 Normal >=60 The [facility] Comment on above: Performed By: #### C MP, TERRENCE, BNP, LIPA ####[facility] Zglrmacniu2868 [place] [address]Dr. Chrissy Frazier EGFR-NON AF TUVALUAN >60 Normal >=60 The [facility] Comment on above: Performed By: #### C MP, TERRENCE, BNP, LIPA ####[facility] Cgxkuhlroe6882 [place] [address]Dr. Chrissy Frazier Globulin (S) [Mass/Vol] 3.2 g/dL Normal The [facility] Comment on above: Performed By: #### C MP, TERRENCE, BNP, LIPA ####[facility] Uacuycwgyv9[address] [place], [place] [address]Dr. Chrissy Frazier Glucose [Mass/Vol] 96 mg/dL Normal 74-106 The [facility] Comment on above: Performed By: #### C MP, TERRENCE, BNP, LIPA ####[facility] Duqakqupff8087 [place] [address]Dr. Chrissy Frazier Potassium [Moles/Vol] 3.3 mmol/L Critically low 3.5-5.1 The [facility] Comment on above: Performed By: #### C MP, TERRENCE, BNP, LIPA ####[facility] Ntscapkjyy1122 [place] [address]Dr. Chrissy Frazier Protein [Mass/Vol] 6.6 g/dL Normal 6.4-8.2 The [facility] Comment on above: Performed By: #### C MP, TERRENCE, BNP, LIPA ####[facility] Ywfdndkimg0597 [place] [address]Dr. Chrissy Frazier Sodium [Moles/Vol] 137 mmol/L Normal 136-145 The [facility] Comment on above: Performed By: #### C MP, TERRENCE, BNP, LIPA ####[facility] Avxrtsecex258[address] [place], [place] [address]Dr. Chrissy Frazier Urea nitrogen [Mass/Vol] 13.0 mg/dL Normal 7.0-18.0 [facility] Comment on above: Performed By: #### C MP, TERRENCE, BNP, LIPA ####[facility] Gdtjfcvoqe864[address] [place], [place] [address]Dr. Chrissy Frazier Urea nitrogen/Creatinine [Mass ratio] 12.1 mg/mg Normal [facility] Comment on above: Performed By: #### C MP, TERRENCE, BNP, LIPA ####[facility] Nqlsdzeonm8148[address] [place], [place] [address]Dr. Chrissy Frazier UA RANDOM W/MICROSCOPICon BACTERIA TRACE Abnormal NONE SEEN [facility] Comment on above: Performed By: #### U AMIC ####[facility] Kizqmivxwl6037[address] [place], [place] [address]Dr. Chrissy Frazier Bilirubin Ql (U) Negative Normal NEGATIVE The [facility] Comment on above: Performed By: #### U AMIC ####[facility] Tauoinzfgg4488[address] [place], [place] [address]Dr. Chrissy Frazier CAST NONE SEEN Normal NONE SEEN [facility] Comment on above: Performed By: #### U AMIC ####[facility] Sennjyndss7149[address] [place], [place] [address]Dr. Chrissy Frazier Clarity (U) CLEAR Normal CLEAR The [facility] Comment on above: Performed By: #### U AMIC ####[facility] Trhmbmbnyu1711[address] [place], [place] [address]Dr. Chrissy Frazier Color (U) YELLOW Normal YELLOW The [facility] Comment on above: Performed By: #### U AMIC ####[facility] Ewjrpunisb3268[address] [place], [place] [address]Dr. Chrissy Frazier Crystals LM Nom (Urine sed) SEEN Abnormal NONE SEEN [facility] Comment on above: Performed By: #### U AMIC ####[facility] Yhswniwrvd7038[address] [place], [place] [address]Dr. Chrissy Frazier Epithelial cells LM Ql (Urine sed) RARE Normal NONE SEEN /RARE The [facility] Comment on above: Performed By: #### U AMIC ####[facility] Ryvfgyfacd3407 [place] [address]Dr. Chrissy Frazier Glucose Ql (U) Negative Normal NEGATIVE The [facility] Comment on above: Performed By: #### U AMIC ####[facility] Ibmpejlujf6827[address] [place], [place] [address]Dr. Chrissy Frazier Hemoglobin Ql (U) Negative Normal NEGATIVE The [facility] Comment on above: Performed By: #### U AMIC ####[facility] Stelttdxnh1463[address] [place], [place] [address]Dr. Chrissy Frazier Ketones Ql (U) 15 mg/dl Abnormal NEGATIVE The [facility] Comment on above: Performed By: #### U AMIC ####[facility] Kkerqndtpw9357[address] [place], [place] [address]Dr. Chrissy Frazier LEUKOCYTES Negative Normal NEGATIVE The [facility] Comment on above: Performed By: #### U AMIC ####[facility] Plrhmvmoyv8212[address] [place], [place] [address]Dr. Chrissy Frazier MUCOUS NONE SEEN Normal NONE SEEN The [facility] Comment on above: Performed By: #### U AMIC ####[facility] Xdspkruoir4784[address] [place], [place] [address]Dr. Chrissy Frazier Nitrite Ql (U) Negative Normal NEGATIVE The [facility] Comment on above: Performed By: #### U AMIC ####[facility] Mctaxafwts6799[address] [place], [place] [address]Dr. Chrissy Frazier pH (U) 6.0 [pH] Normal 5-9 The [facility] Comment on above: Performed By: #### U AMIC ####[facility] Wamdkountb4368[address] [place], [place] [address]Dr. Chrissy Frazier RBC 0-2 Normal 0-2 The [facility] Comment on above: Performed By: #### U AMIC ####[facility] Fyfjpmovws523[address] [place], [place] [address]Dr. Chrissy Frazier SPEC GRAVITY 1.015 Normal 1.005-<=1.025 The [facility] Comment on above: Performed By: #### U AMIC ####[facility] Nhcokfilii9260 [place] [address]Dr. Chrissy Frazier UA PROTEIN Negative Normal NEGATIVE/ TRACE The [facility] Comment on above: Performed By: #### U AMIC ####[facility] Vikydkgwgw2748 [place] [address]Dr. Chrissy Frazier URIC ACID CRYSTALS RARE Normal [facility] Comment on above: Performed By: #### U AMIC ####[facility] Akwtclqtwc1263 [place] [address]Dr. Chrissy Freddie Urobilinogen Qn (U) 0.2 {Estrellita'U}/dL Normal 0.2 - 1. 0 [facility] Comment on above: Performed By: #### U AMIC ####[facility] Eddlvllkuo027[address] [place], [place] [address]Dr. Tishrowan Frazier WBC 0-2 Abnormal NONE SEEN The [facility] Comment on above: Performed By: #### U AMIC ####[facility] Sshrpqubyr555[address] [place], [place] [address]Dr. Chrissy Freddie AMYLASEon 07-06-2022 Amylase [Catalytic activity/Vol] 37 U/L Normal 25-115 [facility] Comment on above: Performed By: #### C MP, LIPA, TERRENCE ####[facility] Iqcmmwxnbt7269[address] [place], [place] [address]Dr. Chrissy Frazier CBC AUTO DIFFon 07-06-2022 BASO # 0.1 103/ul Normal 0.0-0.1 [facility] Comment on above: Performed By: #### C BC ####[facility] Prcfckocex711[address] [place], [place] [address]Dr. Tishrowan Frazier Basophils/100 WBC (Bld) 0.4 % Normal 0.2-2.0 [facility] Comment on above: Performed By: #### C BC ####[facility] Yivdwqnwcu1834[address] [place], [place] [address]Dr. Chrissy Frazier EO # 0.1 103/ul Normal 0.0-0.7 The [facility] Comment on above: Performed By: #### C BC ####[facility] Pwnearyoyf5042 [place] [address]Dr. Chrissy Frazier Eosinophils/100 WBC (Bld) 0.5 % Critically low 0.9-7.0 [facility] Comment on above: Performed By: #### C BC ####[facility] Jyriljgydf9030[address] [place], [place] [address]Dr. Chrissy Frazier Erythrocyte distribution width (RBC) [Ratio] 13.6 % Normal 11.0-15.0 [facility] Comment on above: Performed By: #### C BC ####[facility] Pwxsklrlrl1456[address] [place], [place] [address]Dr. Chrissy Frazier Hematocrit (Bld) [Volume fraction] 47.9 % Normal 42.0-54.0 [facility] Comment on above: Performed By: #### C BC ####[facility] Epzscfhssp9655[address] [place], [place] [address]Dr. Chrissy Frazier Hemoglobin (Bld) [Mass/Vol] 16.4 g/dL Normal 14.0-18.0 The [facility] Comment on above: Performed By: #### C BC ####[facility] Piurphlqpg1225[address] [place], [place] [address]Dr. Chrissy Frazier IG # 0.09 10e3/ul Critically high 0.00-0.03 [facility] Comment on above: Performed By: #### C BC ####[facility] Fiymfksycf2320[address] [place], [place] [address]Dr. Chrissy Frazier IG % 0.6 % Critically high 0.0-0.5 [facility] Comment on above: Performed By: #### C BC ####[facility] Dcvjbnoegh532[address] [place], [place] [address]Dr. Chrissy Frazier LYMPH # 2.5 103/ul Normal 1.2-3.8 The [facility] Comment on above: Performed By: #### C BC ####[facility] Bzkmyddzsn5567[address] [place], [place] [address]Dr. Chrissy Frazier Lymphocytes/100 WBC (Bld) 16.7 % Critically low 20.5-60.0 The [facility] Comment on above: Performed By: #### C BC ####[facility] Cughapyksp6421 [place] [address]DrNancy Frazier MANUAL DIFF REQ NO Normal [facility] Comment on above: Performed By: #### C BC ####[facility] Zdvfzxxihv8411 [place] [address]DrNancy Frazier MCH (RBC) [Entitic mass] 28.1 pg Normal 25.9-34.0 [facility] Comment on above: Performed By: #### C BC ####[facility] Ritseiklhv8274[address] [place], [place] [address]DrNancy Frazier MCHC (RBC) [Mass/Vol] 34.2 g/dL Normal 29.9-35.2 The [facility] Comment on above: Performed By: #### C BC ####[facility] Ykrkrhlsde8614[address] [place], [place] [address]DrNancy Frazier MCV (RBC) [Entitic vol] 82.2 fL Normal 80.0-94.0 The [facility] Comment on above: Performed By: #### C BC ####[facility] Mzpwncwalg65[address] [place], [place] [address]DrNancy Frazier MONO # 1.0 103/ul Critically high 0.3-0.8 [facility] Comment on above: Performed By: #### C BC ####[facility] Qaodsteppt0718[address] [place], [place] [address]DrNancy Frazier Monocytes/100 WBC (Bld) 6.7 % Normal 1.7-12.0 The [facility] Comment on above: Performed By: #### C BC ####[facility] Cxpifxwluy0183[address] [place], [place] [address]DrNancy Frazier NEUT # 11.3 103/ul Critically high 1.4-6.5 The [facility] Comment on above: Performed By: #### C BC ####[facility] Hbgabdvnwt1203[address] [place], [place] [address]DrNancy Frazier Neutrophils/100 WBC (Bld) 75.1 % Critically high 43.0-75.0 The [facility] Comment on above: Performed By: #### C BC ####[facility] Eguizpyvrv7542 [place] [id number]. Chrissy Frazier Platelet mean volume (Bld) [Entitic vol] 10.6 fL Normal 9.5-13.5 The [facility] Comment on above: Performed By: #### C BC ####[facility] Xcgoqlhoky3127 [place] [id number]. Chrissy Frazier PLT 416 103/ul Normal 150-450 The [facility] Comment on above: Performed By: #### C BC ####[facility] Ghapkgfyck3335 [place] [id number]. Chrissy Frazier RBC 5.83 106/ul Normal 4.70-6.10 The [facility] Comment on above: Performed By: #### C BC ####[facility] Cjvcmhhqyn7513 [place] [id number]. Chrissy Frazier WBC 15.0 103/ul Critically high 4.0-11.0 The [facility] Comment on above: Performed By: #### C BC ####[facility] Npyxoxxsga3302 [place] [id number]. Chrissy Frazier [facility] SARS-CoV-2 (COVID-19) RNA RHIANNON+probe Ql (Unsp spec) Not detected Normal NOT DETECTED The [facility] Comment on above: Result Comment: When [...] for this test is supported by the Supportive [employer] Case Manager of [employer] and Human Service's declaration [...] be used). Performed By: #### C VDTBH ####[facility] Wrtcobxowo7725 [place] [address]Dr. Chrissy Frazier LIPASEon 07-06-2022 Lipase [Catalytic activity/Vol] 130.0 U/L Normal 73.0-393.0 [facility] Comment on above: Performed By: #### C OSWALD ADAIR, TERRENCE ####[facility] Ibhlcexsvr5865 [place] [address]Dr. Chrissy Frazier PROF 14(COMP METB)on 022 Albumin [Mass/Vol] 4.4 g/dL Normal 3.4-5.0 [facility] Comment on above: Performed By: #### C MANA LIPA, TERRENCE ####[facility] Moyzwvtmfm217[address] [place], [place] [address]Dr. Chrissy Frazier Albumin/Globulin [Mass ratio] 1.1 {ratio} Normal [facility] Comment on above: Performed By: #### C OSWALD ADAIR TERRENCE ####[facility] Eiwttlpwhh6952[address] [place], [place] [address]Dr. Chrissy Frazier ALP [Catalytic activity/Vol] 83 U/L Normal 46-116 [facility] Comment on above: Performed By: #### C MANA LIPA, TERRENCE ####[facility] Vdwihuwyhd9075 [place] [address]Dr. Chrissy Frazier ALT [Catalytic activity/Vol] 107 U/L Critically high 16-63 [facility] Comment on above: Performed By: #### C TESSA ADAIRA, TERRENCE ####[facility] Maybfivpac3205 [place] [address]Dr. Chrissy Frazier Anion gap [Moles/Vol] 20.5 mmol/L Normal [facility] Comment on above: Performed By: #### C MANA LIPA, TERRENCE ####[facility] Jojsbwgddm3808[address] [place], [place] [address]Dr. Chrissy Frazier AST [Catalytic activity/Vol] 46 U/L Critically high 15-37 The [facility] Comment on above: Performed By: #### C OSWALD ADAIR, TERRENCE ####[facility] Mecaptlqve7324 [place] [address]Dr. Chrissy Frazier Bilirubin [Mass/Vol] 1.2 mg/dL Critically high 0.2-1.0 [facility] Comment on above: Performed By: #### C TESSA ADAIRA, TERRENCE ####[facility] [address]xjf[address]ysn[address] [place], [place] [address]Dr. Chrissy Frazier Calcium [Mass/Vol] 9.1 mg/dL Normal 8.5-10.1 [facility] Comment on above: Performed By: #### C MANA LIPA, TERRENCE ####[facility] Xggrspffkz867[address] [place], [place] [address]Dr. Chrissy Frazier Chloride [Moles/Vol] 100 mmol/L Normal 98-107 [facility] Comment on above: Performed By: #### C TESSA ADAIRA, TERRENCE ####[facility] Cpeytavgpp75[address] [place], [place] [address]Dr. Chrissy Frazier CO2 [Moles/Vol] 18.6 mmol/L Critically low 21.0-32.0 [facility] Comment on above: Performed By: #### C MANA LIPA, TERRENCE ####[facility] Uyhwgwgdlu8[address] [place], [place] [address]Dr. Chrissy Frazier Creatinine [Mass/Vol] 1.44 mg/dL Critically high 0.70-1.30 The [facility] Comment on above: Performed By: #### C MANA LIPA, TERRENCE ####[facility] Haustepxtd[address] [place], [place] [address]Dr. Chrissy Frazier EGFR-AF TUVALUAN >60 Normal >=60 The [facility] Comment on above: Performed By: #### C MP, LIPA, TERRENCE ####[facility] [facility] [address] [place], [place] [address]Dr. Chrissy Frazier EGFR-NON AF TUVALUAN 57 mL/min/1.73m2 Critically low >=60 [facility] Comment on above: Performed By: #### C MANA LIPA, TERRENCE ####[facility] Xxqcmyjijg39[address] [place] [address]Dr. Chrissy Frazier Globulin (S) [Mass/Vol] 4.0 g/dL Normal [facility] Comment on above: Performed By: #### C MANA LIPA, TERRENCE ####[facility] Xwepjhetry4[address] [place] [address]Dr. Chrissy Frazier Glucose [Mass/Vol] 117 mg/dL Critically high 74-106 [facility] Comment on above: Performed By: #### C MANA LIPA, TERRENCE ####[facility] Jpnmntkq[address] [place], [place] [address]Dr. Chrissy Frazier Potassium [Moles/Vol] 3.1 mmol/L Critically low 3.5-5.1 [facility] Comment on above: Performed By: #### C MANA LIPA, TERRENCE ####[facility] Bdddruragn[address] [place], [place] [address]Dr. Chrissy Frazier Protein [Mass/Vol] 8.4 g/dL Critically high 6.4-8.2 [facility] Comment on above: Performed By: #### C TESSA ADAIRA, TERRENCE ####[facility] Ulrumrarrg[address] [place], [place] [address]Dr. Chirssy Frazier Sodium [Moles/Vol] 136 mmol/L Normal 136-145 [facility] Comment on above: Performed By: #### C MANA LIPA, TERRENCE ####[facility] Qmrxvhjyrm[address] [place], [place] [address]Dr. Chrissy Frazier Urea nitrogen [Mass/Vol] 15.0 mg/dL Normal 7.0-18.0 [facility] Comment on above: Performed By: #### C MANA LIPA, TERRENCE ####[facility] Bziragdxsf[address] [place], [place] [address]Dr. Chrissy Frazier Urea nitrogen/Creatinine [Mass ratio] 10.4 mg/mg Normal [facility] Comment on above: Performed By: #### C MANA LIPA, TERRENCE ####[facility] Fjhjuiwowm[address] [place] [address]Dr. Chrissy Freddie CBC AUTO DIFFon 07-05-2022 BASO # 0.0 103/ul Normal 0.0-0.1 [facility] Comment on above: Performed By: #### C BC ####[facility] Qplq[address]ui[address] [place], [place] [id number]. Chrissy Frazier Basophils/100 WBC (Bld) 0.3 % Normal 0.2-2.0 [facility] Comment on above: Performed By: #### C BC ####[facility] Acqlpgjpqz[address] [place], [place] [address]Dr. Chrissy Frazier EO # 0.2 103/ul Normal 0.0-0.7 [facility] Comment on above: Performed By: #### C BC ####[facility] Bexjtoaxde7[address] [place], [place] [address]Dr. Chrissy Frazier Eosinophils/100 WBC (Bld) 1.5 % Normal 0.9-7.0 [facility] Comment on above: Performed By: #### C BC ####[facility] Pqbtsjvbda30[address] [place], [place] [address]Dr. Tishrowan Frazier Erythrocyte distribution width (RBC) [Ratio] 13.9 % Normal 11.0-15.0 [facility] Comment on above: Performed By: #### C BC ####[facility] Wrnzyulttl11[address] [place], [place] [address]Dr. Chrissy Frazier Hematocrit (Bld) [Volume fraction] 44.5 % Normal 42.0-54.0 [facility] Comment on above: Performed By: #### C BC ####[facility] Uwopjwhzku[address] [place], [place] [address]Dr. Chrissy Frazier Hemoglobin (Bld) [Mass/Vol] 14.8 g/dL Normal 14.0-18.0 [facility] Comment on above: Performed By: #### C BC ####[facility] Sqnzjcwszp[address] [place], [place] [address]Dr. Chrissy Frazier IG # 0.05 10e3/ul Critically high 0.00-0.03 [facility] Comment on above: Performed By: #### C BC ####[facility] Moluvqdhgm[address] [place] [id number]. Chrissy Frazier IG % 0.4 % Normal 0.0-0.5 [facility] Comment on above: Performed By: #### C BC ####[facility] Raafwzyabe[address] [place] [phone]. Chrissy Frazier LYMPH # 3.3 103/ul Normal 1.2-3.8 [facility] Comment on above: Performed By: #### C BC ####[facility] Qlovffaoqx9991 [place] [id number]. Chrissy Frazier Lymphocytes/100 WBC (Bld) 29.1 % Normal 20.5-60.0 [facility] Comment on above: Performed By: #### C BC ####[facility] Ryojfogcih0376 [place] [address]Dr. Chrissy Frazier MANUAL DIFF REQ NO Normal [facility] Comment on above: Performed By: #### C BC ####[facility] Tegvytvbsy54[address] [place] [phone]. Chrissy Frazier MCH (RBC) [Entitic mass] 28.2 pg Normal 25.9-34.0 [facility] Comment on above: Performed By: #### C BC ####[facility] Wismfmiggr9366 [place] [phone]. Chrissy Frazier MCHC (RBC) [Mass/Vol] 33.3 g/dL Normal 29.9-35.2 [facility] Comment on above: Performed By: #### C BC ####[facility] Wqnbbveboo[address] [place] [phone]. Chrissy Frazier MCV (RBC) [Entitic vol] 84.9 fL Normal 80.0-94.0 [facility] Comment on above: Performed By: #### C BC ####[facility] Awkijcglmr[address] [place] [id number]. Chrissy Freddie MONO # 0.6 103/ul Normal 0.3-0.8 [facility] Comment on above: Performed By: #### C BC ####[facility] Piuulmadet[address] [place] [id number]. Chrissy Frazier Monocytes/100 WBC (Bld) 5.4 % Normal 1.7-12.0 [facility] Comment on above: Performed By: #### C BC ####[facility] Zxnnodqdni35[address] [place] [phone]. Chrissy Frazier NEUT # 7.1 103/ul Critically high 1.4-6.5 [facility] Comment on above: Performed By: #### C BC ####[facility] Uoxzblxexi8639 [place] [phone]. Chrissy Frazier Neutrophils/100 WBC (Bld) 63.3 % Normal 43.0-75.0 [facility] Comment on above: Performed By: #### C BC ####[facility] Usyjihtrhk5391 [place] [address]Dr. Chrissy Frazier Platelet mean volume (Bld) [Entitic vol] 9.9 fL Normal 9.5-13.5 [facility] Comment on above: Performed By: #### C BC ####[facility] Esdeecljhx37[address] [place] [address]Dr. Chrissy Freddie PLT 339 103/ul Normal 150-450 [facility] Comment on above: Performed By: #### C BC ####[facility] Buxoknbgxk5[address] [place] [phone]. Tishrowan Frazier RBC 5.24 106/ul Normal 4.70-6.10 [facility] Comment on above: Performed By: #### C BC ####[facility] Ngdauqufls6108 [place] [phone]. Chrissy Frazier WBC 11.2 103/ul Critically high 4.0-11.0 [facility] Comment on above: Performed By: #### C BC ####[facility] Ancwncmlyk7404 [place] [address]Dr. Chrissy Frazier PROF 14(COMP METB)on 022 Albumin [Mass/Vol] 3.8 g/dL Normal 3.4-5.0 [facility] Comment on above: Performed By: #### C MP ####[facility] Cajomabhcx06[address] [place] [id number]. Chrissy Freddie Albumin/Globulin [Mass ratio] 1.1 {ratio} Normal [facility] Comment on above: Performed By: #### C MP ####[facility] Rohwcbyqcf54[address] [place] [phone]. Chrissy Freddie ALP [Catalytic activity/Vol] 67 U/L Normal 46-116 [facility] Comment on above: Performed By: #### C MP ####[facility] Darhoakuhi2067 [place] [address]Dr. Chrissy Freddie ALT [Catalytic activity/Vol] 75 U/L Critically high 16-63 [facility] Comment on above: Performed By: #### C MP ####[facility] Vswbedcasp3516 [place] [address]Dr. Chrissy Frazier Anion gap [Moles/Vol] 14.3 mmol/L Normal [facility] Comment on above: Performed By: #### C MP ####[facility] Vtnxjwefzw6843 [place] [address]Dr. Chrissy Freddie AST [Catalytic activity/Vol] 40 U/L Critically high 15-37 [facility] Comment on above: Performed By: #### C MP ####[facility] Rgqspqprkh0869 [place] [address]Dr. Chrissy Frazier Bilirubin [Mass/Vol] 0.9 mg/dL Normal 0.2-1.0 [facility] Comment on above: Performed By: #### C MP ####[facility] Jbclynnwhz0891 [place] [id number]. Chrissy Frazier Calcium [Mass/Vol] 8.4 mg/dL Critically low 8.5-10.1 [facility] Comment on above: Performed By: #### C MP ####[facility] Aelqxizjcg7471 [place] [address]Dr. Chrissy Frazier Chloride [Moles/Vol] 104 mmol/L Normal 98-107 [facility] Comment on above: Performed By: #### C MP ####[facility] Ccoxkczfqh9791 [place] [phone]. Chrissy Frazier CO2 [Moles/Vol] 24.1 mmol/L Normal 21.0-32.0 [facility] Comment on above: Performed By: #### C MP ####[facility] Wuzuzbfvay27[address] [place] [phone]. Chrissy Frazier Creatinine [Mass/Vol] 1.11 mg/dL Normal 0.70-1.30 [facility] Comment on above: Performed By: #### C MP ####[facility] Nntanexgrc6966 [place] [phone]. Chrissy Frazier EGFR-AF TUVALUAN >60 Normal >=60 [facility] Comment on above: Performed By: #### C MP ####[facility] Atmrkbdqcp86[address] [place] [address]Dr. Chrissy Frazier EGFR-NON AF TUVALUAN >60 Normal >=60 [facility] Comment on above: Performed By: #### C MP ####[facility] Pxbotbanmr4539[address] [place], [place] [address]Dr. Chrissy Frazier Globulin (S) [Mass/Vol] 3.6 g/dL Normal [facility] Comment on above: Performed By: #### C MP ####[facility] Oaxetfpenj39[address] [place], [place] [address]Dr. Chrissy Frazier Glucose [Mass/Vol] 89 mg/dL Normal 74-106 [facility] Comment on above: Performed By: #### C MP ####[facility] Bvpqlomrlx1579 [place] [address]Dr. Chrissy Frazier Potassium [Moles/Vol] 3.4 mmol/L Critically low 3.5-5.1 [facility] Comment on above: Performed By: #### C MP ####[facility] Hoyeaenvgc3[address] [place], [place] [address]Dr. Chrissy Freddie Protein [Mass/Vol] 7.4 g/dL Normal 6.4-8.2 [facility] Comment on above: Performed By: #### C MP ####[facility] Jsonfbvoci1856[address] [place], [place] [address]Dr. Chrissy Frazier Sodium [Moles/Vol] 139 mmol/L Normal 136-145 [facility] Comment on above: Performed By: #### C MP ####[facility] Cofedphadb9[address] [place], [place] [address]Dr. Chrissy Frazier Urea nitrogen [Mass/Vol] 10.0 mg/dL Normal 7.0-18.0 [facility] Comment on above: Performed By: #### C MP ####[facility] Esxfsggiwt65[address] [place], [place] [address]Dr. Chrissy Frazier Urea nitrogen/Creatinine [Mass ratio] 9.0 mg/mg Normal [facility] Comment on above: Performed By: #### C MP ####[facility] Ehtiwhqvos[address] [place], [place] [address]Dr. Chrissy Frazier CBC AUTO DIFFon 07-04-2022 BASO # 0.0 103/ul Normal 0.0-0.1 [facility] Comment on above: Performed By: #### C BC ####[facility] Gkvztjioej[address] [place], [place] [address]Dr. Chrissy Freddie Basophils/100 WBC (Bld) 0.2 % Normal 0.2-2.0 [facility] Comment on above: Performed By: #### C BC ####[facility] Hycfogyvpz32[address] [place], [place] [address]Dr. Chrissy Frazier EO # 0.0 103/ul Normal 0.0-0.7 [facility] Comment on above: Performed By: #### C BC ####[facility] Fuhwlfpmkb[address] [place], [place] [address]Dr. Chrissy Freddie Eosinophils/100 WBC (Bld) 0.3 % Critically low 0.9-7.0 [facility] Comment on above: Performed By: #### C BC ####[facility] Iiiqjmxcpv23[address] [place], [place] [address]Dr. Chrissy Frazier Erythrocyte distribution width (RBC) [Ratio] 14.0 % Normal 11.0-15.0 [facility] Comment on above: Performed By: #### C BC ####[facility] Fbrghwvgll4770 [place] [address]Dr. Chrissy Frazier Hematocrit (Bld) [Volume fraction] 43.2 % Normal 42.0-54.0 [facility] Comment on above: Performed By: #### C BC ####[facility] Aylwabifbj9742 [place] [address]Dr. Chrissy Frazier Hemoglobin (Bld) [Mass/Vol] 14.6 g/dL Normal 14.0-18.0 [facility] Comment on above: Performed By: #### C BC ####[facility] Izuhxlbjwy9664 [place] [address]Dr. Tishrowan Freddie IG # 0.11 10e3/ul Critically high 0.00-0.03 [facility] Comment on above: Performed By: #### C BC ####[facility] Ypmtdkbojb9930 [place] [address]Dr. Chrissy rFazier IG % 0.8 % Critically high 0.0-0.5 [facility] Comment on above: Performed By: #### C BC ####[facility] Gmcpgqmdft5043 [place] [address]Dr. Chrissy Frazier LYMPH # 2.6 103/ul Normal 1.2-3.8 [facility] Comment on above: Performed By: #### C BC ####[facility] Cqlujtjgwx1440 [place] [address]Dr. Tishrowan Frazier Lymphocytes/100 WBC (Bld) 18.3 % Critically low 20.5-60.0 [facility] Comment on above: Performed By: #### C BC ####[facility] Ujevprqrib0586 [place] [address]Dr. Tishrowan Frazier MANUAL DIFF REQ NO Normal [facility] Comment on above: Performed By: #### C BC ####[facility] Adjfyldsdt[address] [place], [place] [address]Dr. Chrissy Frazier MCH (RBC) [Entitic mass] 28.1 pg Normal 25.9-34.0 [facility] Comment on above: Performed By: #### C BC ####[facility] Relpdoaqxo79[address] [place] [id number]. Chrissy Frazier MCHC (RBC) [Mass/Vol] 33.8 g/dL Normal 29.9-35.2 [facility] Comment on above: Performed By: #### C BC ####[facility] Kqnjzowxfo1034 [place] [id number]. Chrissy Frazier MCV (RBC) [Entitic vol] 83.2 fL Normal 80.0-94.0 [facility] Comment on above: Performed By: #### C BC ####[facility] Ualelsgnom1090 [place] [id number]. Chrissy Frazier MONO # 0.7 103/ul Normal 0.3-0.8 [facility] Comment on above: Performed By: #### C BC ####[facility] Diygyqdwkg9501 [place] [address]Dr. Tishrowan Frazier Monocytes/100 WBC (Bld) 5.3 % Normal 1.7-12.0 [facility] Comment on above: Performed By: #### C BC ####[facility] Sainqdxrdk5[address] [place] [id number]. Chrissy Frazier NEUT # 10.5 103/ul Critically high 1.4-6.5 [facility] Comment on above: Performed By: #### C BC ####[facility] Ggrpdgvour2503 [place] [id number]. Chrissy Frazier Neutrophils/100 WBC (Bld) 75.1 % Critically high 43.0-75.0 [facility] Comment on above: Performed By: #### C BC ####[facility] Xkhrsjppjg7663 [place] [id number]. Chrissy Frazier Platelet mean volume (Bld) [Entitic vol] 10.6 fL Normal 9.5-13.5 [facility] Comment on above: Performed By: #### C BC ####[facility] Cmfchawtxk3510 [place] [id number]. Chrissy Freddie PLT 309 103/ul Normal 150-450 [facility] Comment on above: Performed By: #### C BC ####[facility] Cgklvuhlyj3594 [place] [address]Dr. Chrissy Frazier RBC 5.19 106/ul Normal 4.70-6.10 [facility] Comment on above: Performed By: #### C BC ####[facility] Fyzhpymkzn2400 [place] [address]Dr. Chrissy Frazier WBC 14.0 103/ul Critically high 4.0-11.0 [facility] Comment on above: Performed By: #### C BC ####[facility] Yvrwxjoazm9441 [place] [address]Dr. Chrissy Frazier PROF 14(COMP METB)on 022 Albumin [Mass/Vol] 4.0 g/dL Normal 3.4-5.0 [facility] Comment on above: Performed By: #### C MP ####[facility] Fuxwcebhkj20[address] [place], [place] [address]Dr. Chrissy Frazier Albumin/Globulin [Mass ratio] 1.1 {ratio} Normal [facility] Comment on above: Performed By: #### C MP ####[facility] Zkhbwopyrg3163[address] [place], [place] [address]Dr. Chrissy Frazier ALP [Catalytic activity/Vol] 67 U/L Normal 46-116 [facility] Comment on above: Performed By: #### C MP ####[facility] Chkujlynel85[address] [place], [place] [address]Dr. Chrissy Frazier ALT [Catalytic activity/Vol] 40 U/L Normal 16-63 [facility] Comment on above: Performed By: #### C MP ####[facility] Lsqvbrwuyc65[address] [place], [place] [address]Dr. Chrissy Frazier Anion gap [Moles/Vol] 17.7 mmol/L Normal [facility] Comment on above: Performed By: #### C MP ####[facility] Azkdqtooee7945[address] [place], [place] [address]Dr. Chrissy Frazier AST [Catalytic activity/Vol] 27 U/L Normal 15-37 [facility] Comment on above: Performed By: #### C MP ####[facility] Owqtxzhezs5649[address] [place], [place] [address]Dr. Chrissy Frazier Bilirubin [Mass/Vol] 0.8 mg/dL Normal 0.2-1.0 [facility] Comment on above: Performed By: #### C MP ####[facility] Kveotoncba2712 [place] [address]Dr. Chrissy Frazier Calcium [Mass/Vol] 8.8 mg/dL Normal 8.5-10.1 [facility] Comment on above: Performed By: #### C MP ####[facility] Alexgacdbm1463 [place] [address]Dr. Chrissy Frazier Chloride [Moles/Vol] 105 mmol/L Normal 98-107 [facility] Comment on above: Performed By: #### C MP ####[facility] Jirmmrohkp9089 [place] [address]Dr. Chrissy Frazier CO2 [Moles/Vol] 16.5 mmol/L Critically low 21.0-32.0 [facility] Comment on above: Performed By: #### C MP ####[facility] Lfluucvskl6356[address] [place], [place] [address]Dr. Chrissy Frazier Creatinine [Mass/Vol] 1.02 mg/dL Normal 0.70-1.30 [facility] Comment on above: Performed By: #### C MP ####[facility] Rxtelokqnv37[address] [place], [place] [address]Dr. Chrissy Frazier EGFR-AF TUVALUAN >60 Normal >=60 [facility] Comment on above: Performed By: #### C MP ####[facility] Tnqizjgzlf6910 [place] [address]Dr. Chrissy Freddie EGFR-NON AF TUVALUAN >60 Normal >=60 [facility] Comment on above: Performed By: #### C MP ####[facility] Ntjgcfgegp[address] [place], [place] [address]Dr. Tishrowan Freddie Globulin (S) [Mass/Vol] 3.7 g/dL Normal [facility] Comment on above: Performed By: #### C MP ####[facility] Qraadxwgpt0087 [place] [address]Dr. Tishrowan Frazier Glucose [Mass/Vol] 106 mg/dL Normal 74-106 [facility] Comment on above: Performed By: #### C MP ####[facility] Hhzftcklop1341 [place] [address]Dr. Chrissy Freddie Potassium [Moles/Vol] 3.2 mmol/L Critically low 3.5-5.1 [facility] Comment on above: Performed By: #### C MP ####[facility] Nxfbidllhs119[address] [place], [place] [address]Dr. Chrissy Freddie Protein [Mass/Vol] 7.7 g/dL Normal 6.4-8.2 [facility] Comment on above: Performed By: #### C MP ####[facility] Hsinmitmsu1369[address] [place], [place] [address]Dr. Chrissy Frazier Sodium [Moles/Vol] 136 mmol/L Normal 136-145 [facility] Comment on above: Performed By: #### C MP ####[facility] Yvkmhyyzpc0201[address] [place], [place] [address]Dr. Chrissy Freddie Urea nitrogen [Mass/Vol] 10.0 mg/dL Normal 7.0-18.0 [facility] Comment on above: Performed By: #### C MP ####[facility] Ahkjptfdsx3101[address] [place], [place] [address]Dr. Tishrowan Freddie Urea nitrogen/Creatinine [Mass ratio] 9.8 mg/mg Normal [facility] Comment on above: Performed By: #### C MP ####[facility] Stzesbggaf[address] [place], [place] [address]Dr. Chrissy Freddie CBC AUTO DIFFon 07-03-2022 BASO # 0.1 103/ul Normal 0.0-0.1 [facility] Comment on above: Performed By: #### C BC ####[facility] Kpcbuupuog64[address] [place], [place] [address]Dr. Chrissy Frazier Basophils/100 WBC (Bld) 0.5 % Normal 0.2-2.0 [facility] Comment on above: Performed By: #### C BC ####[facility] Lfkxmfotai[address] [place], [place] [address]Dr. Chrissy Frazier EO # 0.1 103/ul Normal 0.0-0.7 [facility] Comment on above: Performed By: #### C BC ####[facility] Lxrdrvsjdl4498 [place] [address]Dr. Chrissy Frazier Eosinophils/100 WBC (Bld) 1.3 % Normal 0.9-7.0 [facility] Comment on above: Performed By: #### C BC ####[facility] Sxtjluxpqc1257 [place] [address]Dr. Chrissy Frazier Erythrocyte distribution width (RBC) [Ratio] 14.2 % Normal 11.0-15.0 [facility] Comment on above: Performed By: #### C BC ####[facility] Axgiwwiirw20[address] [place], [place] [address]Dr. Chrissy Frazier Hematocrit (Bld) [Volume fraction] 41.7 % Critically low 42.0-54.0 [facility] Comment on above: Performed By: #### C BC ####[facility] Nehsgfdnne[address] [place], [place] [address]Dr. Chrissy Frazier Hemoglobin (Bld) [Mass/Vol] 13.6 g/dL Critically low 14.0-18.0 [facility] Comment on above: Performed By: #### C BC ####[facility] Hxdaivwnmf5[address] [place], [place] [address]Dr. Chrissy Frazier IG # 0.04 10e3/ul Critically high 0.00-0.03 [facility] Comment on above: Performed By: #### C BC ####[facility] Hxtrirbrqc8705 [place] [address]Dr. Chrissy Frazier IG % 0.4 % Normal 0.0-0.5 [facility] Comment on above: Performed By: #### C BC ####[facility] Xdqloivmmr2652[address] [place], [place] [address]Dr. Chrissy Frazier LYMPH # 3.5 103/ul Normal 1.2-3.8 [facility] Comment on above: Performed By: #### C BC ####[facility] Gxlxuzaahh[address] [place], [place] [address]Dr. Chrissy Frazier Lymphocytes/100 WBC (Bld) 33.5 % Normal 20.5-60.0 [facility] Comment on above: Performed By: #### C BC ####[facility] Vlmdgmustt5643 [place] [address]Dr. Chrissy Frazier MANUAL DIFF REQ NO Normal [facility] Comment on above: Performed By: #### C BC ####[facility] Szcdaysmyr6933 [place] [address]Dr. Chrissy Frazier MCH (RBC) [Entitic mass] 27.9 pg Normal 25.9-34.0 [facility] Comment on above: Performed By: #### C BC ####[facility] Hrapzmlrfw1805 [place] [address]Dr. Chrissy Frazier MCHC (RBC) [Mass/Vol] 32.6 g/dL Normal 29.9-35.2 [facility] Comment on above: Performed By: #### C BC ####[facility] Nxpaadavvn7344 [place] [address]Dr. Chrissy Frazier MCV (RBC) [Entitic vol] 85.6 fL Normal 80.0-94.0 [facility] Comment on above: Performed By: #### C BC ####[facility] Msrihkiqjs9933 [place] [address]Dr. Chrissy Frazier MONO # 0.7 103/ul Normal 0.3-0.8 [facility] Comment on above: Performed By: #### C BC ####[facility] Rsfccmdozf4202 [place] [address]Dr. Chrissy Frazier Monocytes/100 WBC (Bld) 6.5 % Normal 1.7-12.0 [facility] Comment on above: Performed By: #### C BC ####[facility] Iklwjmrtlj[address] [place] [address]DrNancy Frazier NEUT # 6.1 103/ul Normal 1.4-6.5 [facility] Comment on above: Performed By: #### C BC ####[facility] Keithphuta[address] [place], [place] [address]Dr. Chrissy Frazier Neutrophils/100 WBC (Bld) 57.8 % Normal 43.0-75.0 [facility] Comment on above: Performed By: #### C BC ####[facility] Scvsfpkhnf99[address] [place] [address]Dr. Tishrowan Freddie Platelet mean volume (Bld) [Entitic vol] 10.4 fL Normal 9.5-13.5 [facility] Comment on above: Performed By: #### C BC ####[facility] Ofyklnjfvg7494 [place] [address]DrNancy Frazier PLT 288 103/ul Normal 150-450 [facility] Comment on above: Performed By: #### C BC ####[facility] Qcewuudbtg7665 [place] [address]DrNancy Frazier RBC 4.87 106/ul Normal 4.70-6.10 [facility] Comment on above: Performed By: #### C BC ####[facility] Ngjmthyhfx3712[address] [place], [place] [address]DrNancy Frazier WBC 10.5 103/ul Normal 4.0-11.0 [facility] Comment on above: Performed By: #### C BC ####[facility] Leosjehbxa7[address] [place], [place] [address]DrNancy Frazier PROF 14(COMP METB)on 022 Albumin [Mass/Vol] 3.6 g/dL Normal 3.4-5.0 [facility] Comment on above: Performed By: #### C MP ####[facility] Uuicmminer7[address] [place] [address]DrNancy Frazier Albumin/Globulin [Mass ratio] 1.1 {ratio} Normal [facility] Comment on above: Performed By: #### C MP ####[facility] Tgnifufprl6305 [place] [address]DrNancy Frazier ALP [Catalytic activity/Vol] 58 U/L Normal 46-116 [facility] Comment on above: Performed By: #### C MP ####[facility] Uvpbxudarl32[address] [place], [place] [address]Dr. Yirowan Frazier ALT [Catalytic activity/Vol] 30 U/L Normal 16-63 [facility] Comment on above: Performed By: #### C MP ####[facility] Gjlpgnumye7644 [place] [address]Dr. Tishrowan Freddie Anion gap [Moles/Vol] 14.5 mmol/L Normal [facility] Comment on above: Performed By: #### C MP ####[facility] Woxvokipqc8967[address] [place], [place] [address]Dr. Chrissy Freddie AST [Catalytic activity/Vol] 17 U/L Normal 15-37 [facility] Comment on above: Performed By: #### C MP ####[facility] Rdwfrenhyo1230[address] [place], [place] [address]Dr. Chrissy Frazier Bilirubin [Mass/Vol] 0.6 mg/dL Normal 0.2-1.0 [facility] Comment on above: Performed By: #### C MP ####[facility] Ajeigoiorz8332[address] [place], [place] [address]Dr. Chrissy Frazier Calcium [Mass/Vol] 8.4 mg/dL Critically low 8.5-10.1 [facility] Comment on above: Performed By: #### C MP ####[facility] Jffdetkkny36[address] [place], [place] [address]Dr. Chrissy Frazier Chloride [Moles/Vol] 106 mmol/L Normal 98-107 [facility] Comment on above: Performed By: #### C MP ####[facility] Pljekiyumz1516[address] [place], [place] [address]Dr. Chrissy Frazier CO2 [Moles/Vol] 22.6 mmol/L Normal 21.0-32.0 [facility] Comment on above: Performed By: #### C MP ####[facility] Cgouhveong247[address] [place], [place] [address]Dr. Chrissy Frazier Creatinine [Mass/Vol] 1.08 mg/dL Normal 0.70-1.30 [facility] Comment on above: Performed By: #### C MP ####[facility] Flkstcksoz94[address] [place], [place] [address]Dr. Chrissy Frazier EGFR-AF TUVALUAN >60 Normal >=60 [facility] Comment on above: Performed By: #### C MP ####[facility] Lmuckrsfvv1533 [place], [place] [address]Gy. Chrissy Frazier EGFR-NON AF TUVALUAN >60 Normal >=60 [facility] Comment on above: Performed By: #### C MP ####[facility] Dphrepypsc8533 [place], [place] [address]Ov. Chrissy Frazier Globulin (S) [Mass/Vol] 3.3 g/dL Normal [facility] Comment on above: Performed By: #### C MP ####[facility] Gnmraovwyc2[address] [place] [id number]. Chrissy Frazier Glucose [Mass/Vol] 94 mg/dL Normal 74-106 [facility] Comment on above: Performed By: #### C MP ####[facility] Kzibmblwvo9074 [place] [address]Dr. Chrissy Frazier Potassium [Moles/Vol] 3.1 mmol/L Critically low 3.5-5.1 [facility] Comment on above: Performed By: #### C MP ####[facility] Zvtauqjidv2112 [place] [id number]. Chrissy Frazier Protein [Mass/Vol] 6.9 g/dL Normal 6.4-8.2 [facility] Comment on above: Performed By: #### C MP ####[facility] Ctfjdeegut8571 [place] [id number]. Chrissy Frazier Sodium [Moles/Vol] 140 mmol/L Normal 136-145 [facility] Comment on above: Performed By: #### C MP ####[facility] Oailpzbrgb9031 [place] [id number]. Chrissy Frazier Urea nitrogen [Mass/Vol] 10.0 mg/dL Normal 7.0-18.0 [facility] Comment on above: Performed By: #### C MP ####[facility] Qxuhofklva6667 [place] [id number]. Chrissy Frazier Urea nitrogen/Creatinine [Mass ratio] 9.3 mg/mg Normal [facility] Comment on above: Performed By: #### C MP ####[facility] Inqzuvbdov5418[address] [place], [place] [address]Dr. Chrissy Frazier CBC AUTO DIFFon 07-02-2022 BASO # 0.0 103/ul Normal 0.0-0.1 [facility] Comment on above: Performed By: #### C BC ####[facility] Vxnfxbmath8808[address] [place], [place] [address]Dr. Chrissy Frazier Basophils/100 WBC (Bld) 0.2 % Normal 0.2-2.0 [facility] Comment on above: Performed By: #### C BC ####[facility] Eopifxwnno3570[address] [place], [place] [address]Dr. Chrissy Frazier EO # 0.0 103/ul Normal 0.0-0.7 [facility] Comment on above: Performed By: #### C BC ####[facility] Nqifzwhudw0179[address] [place], [place] [address]Dr. Chrissy Frazier Eosinophils/100 WBC (Bld) 0.0 % Critically low 0.9-7.0 [facility] Comment on above: Performed By: #### C BC ####[facility] Grvlrgjjvs923[address] [place], [place] [address]Dr. Chrissy Frazier Erythrocyte distribution width (RBC) [Ratio] 14.2 % Normal 11.0-15.0 [facility] Comment on above: Performed By: #### C BC ####[facility] Quqraifmlu7186[address] [place], [place] [address]Dr. Chrissy Frazier Hematocrit (Bld) [Volume fraction] 46.2 % Normal 42.0-54.0 [facility] Comment on above: Performed By: #### C BC ####[facility] Eyijqqodst8307[address] [place], [place] [address]Dr. Chrissy Frazier Hemoglobin (Bld) [Mass/Vol] 15.2 g/dL Normal 14.0-18.0 [facility] Comment on above: Performed By: #### C BC ####[facility] Koezxeubwo9192[address] [place], [place] [address]Dr. Chrissy Frazier IG # 0.07 10e3/ul Critically high 0.00-0.03 [facility] Comment on above: Performed By: #### C BC ####[facility] Csxclsjzmx6225 [place] [id number] Chrissy Freddie IG % 0.4 % Normal 0.0-0.5 [facility] Comment on above: Performed By: #### C BC ####[facility] Kbfgdijqqh3221 [place] [address]DrNancy Chrissy Freddie LYMPH # 2.8 103/ul Normal 1.2-3.8 [facility] Comment on above: Performed By: #### C BC ####[facility] Htpfnzdbqm0060[address] [place], [place] [address]DrNancy Chrissy Freddie Lymphocytes/100 WBC (Bld) 16.7 % Critically low 20.5-60.0 [facility] Comment on above: Performed By: #### C BC ####[facility] Mapzezkcaj816[address] [place], [place] [address]DrNancy Chrissy Freddie MANUAL DIFF REQ NO Normal [facility] Comment on above: Performed By: #### C BC ####[facility] Wwsvvfdvos3046[address] [place], [place] [address]DrNancy Chrissy Freddie MCH (RBC) [Entitic mass] 28.3 pg Normal 25.9-34.0 [facility] Comment on above: Performed By: #### C BC ####[facility] Fkugsyufah9748 [place] [address]DrNancy Chrissy Freddie MCHC (RBC) [Mass/Vol] 32.9 g/dL Normal 29.9-35.2 [facility] Comment on above: Performed By: #### C BC ####[facility] Antrvyyavd5812[address] [place], [place] [address]DrNancy Winstonrowan Freddie MCV (RBC) [Entitic vol] 86.0 fL Normal 80.0-94.0 [facility] Comment on above: Performed By: #### C BC ####[facility] Herrynensi2917[address] [place], [place] [address]DrNancy Frazier MONO # 0.9 103/ul Critically high 0.3-0.8 [facility] Comment on above: Performed By: #### C BC ####[facility] Gardcixaro[address] [place] [phone]. Chrissy Frazier Monocytes/100 WBC (Bld) 5.1 % Normal 1.7-12.0 [facility] Comment on above: Performed By: #### C BC ####[facility] Nvjmossqkx7144 [place] [id number]. Chrissy Frazier NEUT # 13.2 103/ul Critically high 1.4-6.5 [facility] Comment on above: Performed By: #### C BC ####[facility] Cjhzwtydvr9151 [place] [address]Dr. Chrissy Frazier Neutrophils/100 WBC (Bld) 77.6 % Critically high 43.0-75.0 [facility] Comment on above: Performed By: #### C BC ####[facility] Yiisxefkpg6506[address] [place], [place] [address]Dr. Chrissy Frazier Platelet mean volume (Bld) [Entitic vol] 11.6 fL Normal 9.5-13.5 [facility] Comment on above: Performed By: #### C BC ####[facility] Lwjuhyykvn0551 [place] [address]Dr. Chrissy Frazier PLT 317 103/ul Normal 150-450 [facility] Comment on above: Performed By: #### C BC ####[facility] Iqoexqqmuz[address] [place], [place] [address]Dr. Chrissy Frazier RBC 5.37 106/ul Normal 4.70-6.10 [facility] Comment on above: Performed By: #### C BC ####[facility] Dhaiigfkxt7851 [place] [phone]. Chrissy Frazier WBC 17.1 103/ul Critically high 4.0-11.0 [facility] Comment on above: Performed By: #### C BC ####[facility] Kjxnbndyhe10[address] [place] [id number]. Chrissy Frazier CT ABD/PELV W MARGOTHon 07-02-[address] ABD/PELV W CON Normal [facility] H PYLORI ANTIBODY IGGon 06-21 H. PYLORI IGG ABS 0.13 Index Value Normal 0.00-0.79 [facility] Comment on above: Result Comment: Nega tive <0.80 Equivocal 0.80 - 0.89 Positive >0.89 Performed By: #### H PYLLC ####[facility] Rgrviubugl7390 [place] [address]Dr. Chrissy Frazier PROF 14(COMP METB)on 022 Albumin [Mass/Vol] 3.8 g/dL Normal 3.4-5.0 [facility] Comment on above: Performed By: #### C MP ####[facility] Yltoecgrwm45[address] [place], [place] [address]Dr. Chrissy Frazier Albumin/Globulin [Mass ratio] 1.0 {ratio} Normal [facility] Comment on above: Performed By: #### C MP ####[facility] Lxjvckzxru708[address] [place], [place] [address]Dr. Chrissy Frazier ALP [Catalytic activity/Vol] 68 U/L Normal 46-116 [facility] Comment on above: Performed By: #### C MP ####[facility] Pafmivqcuz2075[address] [place], [place] [address]Dr. Chrissy Frazier ALT [Catalytic activity/Vol] 34 U/L Normal 16-63 [facility] Comment on above: Performed By: #### C MP ####[facility] Oyiemlbpjg9126[address] [place], [place] [address]Dr. Chrissy Frazier Anion gap [Moles/Vol] 17.9 mmol/L Normal [facility] Comment on above: Performed By: #### C MP ####[facility] Vcwxkimfhp7170[address] [place], [place] [address]Dr. Chrissy Frazier AST [Catalytic activity/Vol] 24 U/L Normal 15-37 [facility] Comment on above: Performed By: #### C MP ####[facility] Zxxufxjyls8301[address] [place], [place] [address]Dr. Chrissy Frazier Bilirubin [Mass/Vol] 0.6 mg/dL Normal 0.2-1.0 [facility] Comment on above: Performed By: #### C MP ####[facility] Xixuennyil2177 [place] [address]Dr. Chrissy Frazier Calcium [Mass/Vol] 8.8 mg/dL Normal 8.5-10.1 [facility] Comment on above: Performed By: #### C MP ####[facility] Drobpaywse8439 [place] [address]Dr. Chrissy Frazier Chloride [Moles/Vol] 105 mmol/L Normal 98-107 [facility] Comment on above: Performed By: #### C MP ####[facility] Eccqdedlsq7734[address] [place], [place] [address]Dr. Chrissy Frazier CO2 [Moles/Vol] 18.8 mmol/L Critically low 21.0-32.0 [facility] Comment on above: Performed By: #### C MP ####[facility] Wnsshtsdpz439[address] [place], [place] [address]Dr. Chrissy Frazier Creatinine [Mass/Vol] 1.15 mg/dL Normal 0.70-1.30 [facility] Comment on above: Performed By: #### C MP ####[facility] Kvobeaiagx0926[address] [place], [place] [address]Dr. Chrissy Frazier EGFR-AF TUVALUAN >60 Normal >=60 [facility] Comment on above: Performed By: #### C MP ####[facility] Jjevgsgleu7733[address] [place], [place] [address]Dr. Chrissy Freddie EGFR-NON AF TUVALUAN >60 Normal >=60 [facility] Comment on above: Performed By: #### C MP ####[facility] Zmkmlqzkkl873[address] [place], [place] [address]Dr. Chrissy Freddie Globulin (S) [Mass/Vol] 3.9 g/dL Normal [facility] Comment on above: Performed By: #### C MP ####[facility] Kjlzdtynsr579[address] [place], [place] [address]Dr. Chrissy Frazier Glucose [Mass/Vol] 124 mg/dL Critically high 74-106 [facility] Comment on above: Performed By: #### C MP ####[facility] Bhozfsnbkv9130 [place] [address]Dr. Chrissy Frazier Potassium [Moles/Vol] 3.7 mmol/L Normal 3.5-5.1 [facility] Comment on above: Performed By: #### C MP ####[facility] Epeyklzybk0722 [place] [address]Dr. Chrissy Freddie Protein [Mass/Vol] 7.7 g/dL Normal 6.4-8.2 [facility] Comment on above: Performed By: #### C MP ####[facility] Elkltjofni3718[address] [place], [place] [address]Dr. Tishrowan Frazier Sodium [Moles/Vol] 138 mmol/L Normal 136-145 [facility] Comment on above: Performed By: #### C MP ####[facility] Nxqidevcoa364[address] [place], [place] [address]Dr. Tishrowan Frazier Urea nitrogen [Mass/Vol] 9.0 mg/dL Normal 7.0-18.0 [facility] Comment on above: Performed By: #### C MP ####[facility] Jzzaejgalm6899[address] [place], [place] [address]Dr. Chrissy Freddie Urea nitrogen/Creatinine [Mass ratio] 7.8 mg/mg Normal [facility] Comment on above: Performed By: #### C MP ####[facility] Xgmrjenrty2090[address] [place], [place] [address]Dr. Chrissy Freddie AMMONIAon 07-01-2022 Ammonia (P) [Moles/Vol] 14 umol/L Normal 11-32 [facility] Comment on above: Performed By: #### A MM ####[facility] Fkwjiofauq9713[address] [place], [place] [address]Dr. Tishrowan Frazier AMYLASEon 07-01-2022 Amylase [Catalytic activity/Vol] 32 U/L Normal 25-115 [facility] Comment on above: Performed By: #### A MY, PHOS, CMP, LIPA ####[facility] Aogdictjjo2541 [place] [address]Dr. Tishrowan Frazier CBC AUTO DIFFon 07-01-2022 BASO # 0.1 103/ul Normal 0.0-0.1 [facility] Comment on above: Performed By: #### C BC ####[facility] Wnmqpscarc6436 [place] [address]Dr. Chrissy Frazier Basophils/100 WBC (Bld) 0.4 % Normal 0.2-2.0 [facility] Comment on above: Performed By: #### C BC ####[facility] Agupvodmls4809[address] [place], [place] [address]Dr. Chrissy Frazier EO # 0.2 103/ul Normal 0.0-0.7 [facility] Comment on above: Performed By: #### C BC ####[facility] Vsyjrhjise5635[address] [place], [place] [address]Dr. Tishrowan Freddie Eosinophils/100 WBC (Bld) 0.9 % Normal 0.9-7.0 [facility] Comment on above: Performed By: #### C BC ####[facility] Zwpwdytsxb5250[address] [place], [place] [address]Dr. Chrissy Frazier Erythrocyte distribution width (RBC) [Ratio] 13.8 % Normal 11.0-15.0 [facility] Comment on above: Performed By: #### C BC ####[facility] Zmljamgjri6216[address] [place], [place] [address]Dr. Tishrowan Frazier Hematocrit (Bld) [Volume fraction] 46.3 % Normal 42.0-54.0 [facility] Comment on above: Performed By: #### C BC ####[facility] Tjwltybyzn6366[address] [place], [place] [address]Dr. Tishrowan Frazier Hemoglobin (Bld) [Mass/Vol] 15.4 g/dL Normal 14.0-18.0 [facility] Comment on above: Performed By: #### C BC ####[facility] Eyquzonexi5624[address] [place], [place] [address]Dr. Chrissy Frazier IG # 0.05 10e3/ul Critically high 0.00-0.03 [facility] Comment on above: Performed By: #### C BC ####[facility] Cobhwqqkhu6818 [place] [address]Dr. Chrissy Frazier IG % 0.3 % Normal 0.0-0.5 [facility] Comment on above: Performed By: #### C BC ####[facility] Wzggclqtps6374[address] [place], [place] [address]Dr. Chrissy Frazier LYMPH # 2.0 103/ul Normal 1.2-3.8 [facility] Comment on above: Performed By: #### C BC ####[facility] Hqmblyaqaj4414[address] [place], [place] [address]Dr. Chrissy Frazier Lymphocytes/100 WBC (Bld) 12.9 % Critically low 20.5-60.0 [facility] Comment on above: Performed By: #### C BC ####[facility] Erpmgoydqt9945[address] [place], [place] [address]DrNancy Frazier MANUAL DIFF REQ NO Normal [facility] Comment on above: Performed By: #### C BC ####[facility] Gdodygbjgx7409[address] [place], [place] [address]Dr. Tishrowan Frazier MCH (RBC) [Entitic mass] 28.6 pg Normal 25.9-34.0 [facility] Comment on above: Performed By: #### C BC ####[facility] Fbzkghtlex925[address] [place], [place] [address]Dr. Chrissy Freddie MCHC (RBC) [Mass/Vol] 33.3 g/dL Normal 29.9-35.2 [facility] Comment on above: Performed By: #### C BC ####[facility] Tliyujtoan4501[address] [place], [place] [address]DrNancy Frazier MCV (RBC) [Entitic vol] 86.1 fL Normal 80.0-94.0 [facility] Comment on above: Performed By: #### C BC ####[facility] Lwrzeimtua7869[address] [place], [place] [address]DrNancy Frazier MONO # 0.5 103/ul Normal 0.3-0.8 [facility] Comment on above: Performed By: #### C BC ####[facility] Lpudhvcfjl8326[address] [place], [place] [address]Dr. Chrissy Frazier Monocytes/100 WBC (Bld) 3.0 % Normal 1.7-12.0 [facility] Comment on above: Performed By: #### C BC ####[facility] Jmdgkyzhqy3994 [place] [address]Dr. Chrissy Frazier NEUT # 13.0 103/ul Critically high 1.4-6.5 [facility] Comment on above: Performed By: #### C BC ####[facility] Pqyrdlbyeo7605 [place] [address]Dr. Chrissy Frazier Neutrophils/100 WBC (Bld) 82.5 % Critically high 43.0-75.0 [facility] Comment on above: Performed By: #### C BC ####[facility] Okvpolwyeo8209[address] [place], [place] [address]Dr. Chrissy Frazier Platelet mean volume (Bld) [Entitic vol] 10.0 fL Normal 9.5-13.5 [facility] Comment on above: Performed By: #### C BC ####[facility] Rotbochfft6398[address] [place], [place] [address]Dr. Chrissy Frazier PLT 370 103/ul Normal 150-450 [facility] Comment on above: Performed By: #### C BC ####[facility] Cquqahmfch5[address] [place], [place] [address]Dr. Chrissy Frazier RBC 5.38 106/ul Normal 4.70-6.10 [facility] Comment on above: Performed By: #### C BC ####[facility] Ytjjjehrhw3236[address] [place], [place] [address]Dr. Chrissy Frazier WBC 15.8 103/ul Critically high 4.0-11.0 [facility] Comment on above: Performed By: #### C BC ####[facility] Sowjsimrne[address] [place] [address]Dr. Chrissy Frazier CULTURE URINEon 07-01-2022 CULTURE URINE Culture Observations: No growth Normal [facility] Comment on above: Performed By: #### U RCX ####[facility] Jtnrbpgcjd3640[address] [place], [place] [address]Dr. Chrissy Frazier Covid-19 PCR (CVDTB)on 06-21 SARS-CoV-2 (COVID-19) RNA RHIANNON+probe Ql (Unsp spec) Not detected Normal NOT DETECTED [facility] Comment on above: Result Comment: When [...] for this test is supported by the Supportive Employment Case Manager of Health and Human Service's declaration [...] be used). Performed By: #### C VDTBH ####[facility] Eyltiiyyzn1064 [place] [address]Dr. Chrissy Freddie DRUG SCREEN RAPID (URINE)on 07-01-2022 AMP Negative Normal NEGATIVE [facility] Comment on above: Performed By: #### D REYES UAMIC ####[facility] Esfujreyyu17[address] [place] [id number]. Chrissy Frazier BAR Negative Normal NEGATIVE [facility] Comment on above: Performed By: #### D CHAYAD, UAMIC ####[facility] Zxxpcedztm7278 [place] [phone]. Chrissy Frazier BUP Negative Normal NEGATIVE [facility] Comment on above: Performed By: #### D REYES UAMIC ####[facility] Bbklqfzyfh6456 [place] [phone]. Tishrowan Frazier BZO Negative Normal NEGATIVE [facility] Comment on above: Performed By: #### D REYES UAMIC ####[facility] Dlpbzkmcxy6277 [place] [phone]. Chrissy Frazier LAUREN Negative Normal NEGATIVE [facility] Comment on above: Performed By: #### Amelie CHAMBERS UAMIC ####[facility] Ysdncdqnmj5757[address] [place], [place] [address]Dr. Chrissy Frazier CUT-OFFS SEE BELOW Normal [facility] Comment on above: Result Comment: AMP [...] ng/mL Performed By: #### Amelie CHAMBERS UAMIC ####[facility] Qmtwtdvyeh2005[address] [place], [place] [address]Dr. Chrissy Frazier DRUG CUT HEADER DRUG CLASS TEST SYSTEM CUT-OFF CONCENTRATIONS ARE FOLLOWS: Normal [facility] Comment on above: Performed By: #### Amelie CHAMBERS UAMIC ####[facility] Vqsayysyaa95[address] [place], [place] [address]Dr. Chrissy Frazier mAMP Negative Normal NEGATIVE [facility] Comment on above: Performed By: #### Amelie CHAMBERS UAMIC ####[facility] Snhqqcgacx8999[address] [place], [place] [address]Dr. Chrissy Frazier MTD Negative Normal NEGATIVE [facility] Comment on above: Performed By: #### Amelie CHAMBERS UAMIC ####[facility] Lgzjmoetrw9[address] [place], [place] [address]Dr. Chrissy Frazier OPI Negative Normal NEGATIVE The [facility] Comment on above: Performed By: #### Amelie CHAMBERS UAMIC ####[facility] Pdtiaoodgp[address] [place], [place] [address]Dr. Chrissy Frazier OXY Negative Normal NEGATIVE [facility] Comment on above: Performed By: #### D REYES, UAMIC ####[facility] Cdoxassgpm[address] [place] [address]Dr. Chrissy Frazier PCP Negative Normal NEGATIVE [facility] Comment on above: Performed By: #### D REYES, UAMIC ####[facility] Dafdxteyno2356 [place] [address]Dr. Chrissy Frazier PPX Negative Normal NEGATIVE [facility] Comment on above: Performed By: #### D REYES, UAMIC ####[facility] Yokkkuwlyf0489 [place] [address]Dr. Chrissy Frazier TCA Negative Normal NEGATIVE [facility] Comment on above: Performed By: #### D REYES UAMIC ####[facility] Uklkraybte[address] [place], [place] [address]Dr. Chrissy Frazier THC Positive Abnormal NEGATIVE [facility] Comment on above: Performed By: #### D REYES UAMIC ####[facility] Ubpmmicmhz5[address] [place], [place] [address]Dr. Chrissy Frazier LACTATE/LACTIC ACIDon 2021 Lactate [Moles/Vol] 4.4 mmol/L Critically high 0.4-1.9 [facility] Comment on above: Performed By: #### L ACT ####[facility] Vsabmejkis[address] [place], [place] [address]Dr. Chrissy Frazier LIPASEon 07-01-2022 Lipase [Catalytic activity/Vol] 57.0 U/L Critically low 73.0-393.0 [facility] Comment on above: Performed By: #### A MY, PHOS, CMP, LIPA ####[facility] Pxojumbghc[address] [place], [place] [address]Dr. Chrissy Frazier PHOSPHORUSon 07-01-2022 Phosphate [Mass/Vol] 1.4 mg/dL Critically low 2.6-4.7 [facility] Comment on above: Performed By: #### A MY, PHOS, CMP, LIPA ####[facility] Zlwqkrczah[address] [place], [place] [address]Dr. Chrissy Frazier PROF 14(COMP METB)on 022 Albumin [Mass/Vol] 4.2 g/dL Normal 3.4-5.0 [facility] Comment on above: Performed By: #### A MY, PHOS, CMP, LIPA ####[facility] Dfwlgphuzc8850 [place] [address]Dr. Chrissy Frazier Albumin/Globulin [Mass ratio] 1.1 {ratio} Normal [facility] Comment on above: Performed By: #### A MY, PHOS, CMP, LIPA ####[facility] Qfadnfozyn4126 [place] [address]Dr. Chrissy Frazier ALP [Catalytic activity/Vol] 73 U/L Normal 46-116 [facility] Comment on above: Performed By: #### A MY, PHOS, CMP, LIPA ####[facility] Kfatuvqlbk0734 [place] [address]Dr. Chrissy Frazier ALT [Catalytic activity/Vol] 43 U/L Normal 16-63 [facility] Comment on above: Performed By: #### A MY, PHOS, CMP, LIPA ####[facility] Bvshxnpvuy2702 [place] [address]Dr. Chrissy Frazier Anion gap [Moles/Vol] 19.0 mmol/L Normal [facility] Comment on above: Performed By: #### A MY, PHOS, CMP, LIPA ####[facility] Uzvpuothuv6488 [place] [address]Dr. Chrissy Frazier AST [Catalytic activity/Vol] 21 U/L Normal 15-37 [facility] Comment on above: Performed By: #### A MY, PHOS, CMP, LIPA ####[facility] Wqwfqqbbwf1906 [place] [address]Dr. Chrissy Frazier Bilirubin [Mass/Vol] 0.5 mg/dL Normal 0.2-1.0 [facility] Comment on above: Performed By: #### A MY, PHOS, CMP, LIPA ####[facility] Axwkcwrpgm2765 [place] [address]Dr. Chrissy Frazier Calcium [Mass/Vol] 9.3 mg/dL Normal 8.5-10.1 [facility] Comment on above: Performed By: #### A MY, PHOS, CMP, LIPA ####[facility] Wtmyvfftgf1273 [place] [address]Dr. Chrissy Frazier Chloride [Moles/Vol] 103 mmol/L Normal 98-107 [facility] Comment on above: Performed By: #### A MY, PHOS, CMP, LIPA ####[facility] Phlyeleuxq4243 [place] [address]Dr. Chrissy Frazier CO2 [Moles/Vol] 21.1 mmol/L Normal 21.0-32.0 [facility] Comment on above: Performed By: #### A MY, PHOS, CMP, LIPA ####[facility] Awlqmbshig34[address] [place], [place] [address]Dr. Chrissy Frazier Creatinine [Mass/Vol] 1.44 mg/dL Critically high 0.70-1.30 [facility] Comment on above: Performed By: #### A MY, PHOS, CMP, LIPA ####[facility] Scvzbzckpg47[address] [place], [place] [address]Dr. Chrissy Frazier EGFR-AF TUVALUAN >60 Normal >=60 [facility] Comment on above: Performed By: #### A MY, PHOS, CMP, LIPA ####[facility] Etsihfhftx4581 [place] [address]Dr. Chrissy Frazier EGFR-NON AF TUVALUAN 57 mL/min/1.73m2 Critically low >=60 [facility] Comment on above: Performed By: #### A MY, PHOS, CMP, LIPA ####[facility] Ofemksaczm8575 [place] [address]Dr. Chrissy Frazier Globulin (S) [Mass/Vol] 3.9 g/dL Normal [facility] Comment on above: Performed By: #### A MY, PHOS, CMP, LIPA ####[facility] Psckpnfxff8055 [place] [address]Dr. Chrissy Frazier Glucose [Mass/Vol] 148 mg/dL Critically high 74-106 [facility] Comment on above: Performed By: #### A MY, PHOS, CMP, LIPA ####[facility] Pqreslbhoy4405 [place] [address]Dr. Chrisys Frazier Potassium [Moles/Vol] 3.1 mmol/L Critically low 3.5-5.1 [facility] Comment on above: Performed By: #### A MY, PHOS, CMP, LIPA ####[facility] Kcxxvzxblt2661 [place] [address]Dr. Chrissy Frazier Protein [Mass/Vol] 8.1 g/dL Normal 6.4-8.2 [facility] Comment on above: Performed By: #### A MY, PHOS, CMP, LIPA ####[facility] Fuznprvzqu5980 [place] [address]Dr. Chrissy Frazier Sodium [Moles/Vol] 140 mmol/L Normal 136-145 [facility] Comment on above: Performed By: #### A MY, PHOS, CMP, LIPA ####[facility] Wvvhhysfhs1147 [place] [address]Dr. Chrissy Frazier Urea nitrogen [Mass/Vol] 10.0 mg/dL Normal 7.0-18.0 [facility] Comment on above: Performed By: #### A MY, PHOS, CMP, LIPA ####[facility] Hbnpczaxft8762 [place] [address]Dr. Chrissy Frazier Urea nitrogen/Creatinine [Mass ratio] 6.9 mg/mg Normal [facility] Comment on above: Performed By: #### A MY, PHOS, CMP, LIPA ####[facility] Cbclggwuoj8857 [place] [address]Dr. Chrissy Freddie UA RANDOM W/MICROSCOPICon BACTERIA TRACE Abnormal NONE SEEN The [facility] Comment on above: Performed By: #### D REYES UAMIC ####[facility] Wiqfuwquif8002 [place] [address]Dr. Tishrowan Freddie Bilirubin Ql (U) Negative Normal NEGATIVE The [facility] Comment on above: Performed By: #### D REYES UAMIC ####[facility] Uoyeclvgpy6287 [place] [address]Dr. Chrissy Frazier CAST NONE SEEN Normal NONE SEEN [facility] Comment on above: Performed By: #### Amelie CHAMBERS UAMIC ####[facility] Mnbbjmmbcc0525[address] [place], [place] [address]Dr. Chrissy Frazier Clarity (U) CLEAR Normal CLEAR [facility] Comment on above: Performed By: #### Amelie CHAMBERS UAMIC ####[facility] Edcvrhqaiw9136 [place] [address]Dr. Chrissy Frazier Color (U) YELLOW Normal YELLOW [facility] Comment on above: Performed By: #### Amelie CHAMBERS UAMIC ####[facility] Plktlisuhf[address] [place], [place] [address]Dr. Chrissy Frazier Crystals LM Nom (Urine sed) NONE SEEN Normal NONE SEEN [facility] Comment on above: Performed By: #### Amelie CHAMBERS UAMIC ####[facility] Nwhgdwqfyb8998[address] [place], [place] [address]Dr. Chrissy Frazier Epithelial cells LM Ql (Urine sed) RARE Normal NONE SEEN /RARE [facility] Comment on above: Performed By: #### Amelie CHAMBERS UAMIC ####[facility] Ztalsguucb3[address] [place], [place] [address]Dr. Chrissy Frazier Glucose Ql (U) Negative Normal NEGATIVE The [facility] Comment on above: Performed By: #### Amelie CHAMBERS UAMIC ####[facility] Lakeztjloa969[address] [place], [place] [address]Dr. Chrissy Frazier Hemoglobin Ql (U) Negative Normal NEGATIVE The [facility] Comment on above: Performed By: #### Amelie CHAMBERS UAMIC ####[facility] Dvfudgnzpx4828[address] [place], [place] [address]Dr. Chrissy Frazier Ketones Ql (U) 40 mg/dl Abnormal NEGATIVE The [facility] Comment on above: Performed By: #### Amelie CHAMBERS UAMIC ####[facility] Mjzeoxjxoi4967[address] [place], [place] [address]Dr. Chrissy Frazier LEUKOCYTES Negative Normal NEGATIVE [facility] Comment on above: Performed By: #### Amelie CHAMBERS, UAMIC ####[facility] Rbrfhqpafc3018 [place] [address]Dr. Chrissy Frazier MUCOUS MODERATE Abnormal NONE SEEN [facility] Comment on above: Performed By: #### Amelie CHAMBERS, UAMIC ####[facility] Mgdgqgdnic8938 [place] [address]Dr. Chrissy Frazier Nitrite Ql (U) Negative Normal NEGATIVE [facility] Comment on above: Performed By: #### Amelie CHAMBERS UAMIC ####[facility] Afbqwqbpcr2183[address] [place], [place] [address]Dr. Chrissy Frazier pH (U) 6.0 [pH] Normal 5-9 [facility] Comment on above: Performed By: #### Amelie CHAMBERS UAMIC ####[facility] Mcfwyqdknn7364[address] [place], [place] [address]Dr. Chrissy Frazier RBC 0-2 Normal 0-2 [facility] Comment on above: Performed By: #### Amelie CHAMBERS UAMIC ####[facility] Nnsbuxuhso0118[address] [place], [place] [address]Dr. Chrissy Frazier SPEC GRAVITY 1.020 Normal 1.005-<=1.025 [facility] Comment on above: Performed By: #### Amelie CHAMBERS UAMIC ####[facility] Mbacboxbpp3211[address] [place], [place] [address]Dr. Chrissy Frazier UA PROTEIN Negative Normal NEGATIVE/ TRACE [facility] Comment on above: Performed By: #### Amelie CHAMBERS UAMIC ####[facility] Nzodwpckgh6903[address] [place], [place] [address]Dr. Chrissy Frazier Urobilinogen Qn (U) 0.2 {Estrellita'U}/dL Normal 0.2 - 1. 0 [facility] Comment on above: Performed By: #### Amelie CHAMBERS UAMIC ####[facility] Yxwovfinsk1115[address] [place], [place] [address]Dr. Chrissy Frazier WBC 0-2 Abnormal NONE SEEN [facility] Comment on above: Performed By: #### D RUGRPD, UAMIC ####[facility] Sqeqrzicyu1407 [place], [place] [address]Li. Chrissy Frazier XR ABD FLAT UP_PA Enoch 07-01 XR ABD FLAT UP_PA CH Normal [facility] Covid-19 PCR (CVDTB)on SARS-CoV-2 (COVID-19) RNA RHIANNON+probe Ql (Unsp spec) Not detected Normal NOT DETECTED [facility] Comment on above: Result Comment: When [...] for this test is supported by the [place] of Health and Human Service's declaration that [...] longer be used). Performed By: #### [facility] ####[facility] Orvuxxpmox4087 [place], [place] [address]Zi. Chrissy Frazier SYMPTOMATIC COVID-19 ANTIGEN on 04-23-2022 EUA Statement SEE BELOW Normal The [facility] Comment on above: Result Comment: This [...] revoked sooner. Performed By: #### C VDAGS ####[facility] Tynskxfwsc5972 [place] [address]Dr. Chrissy Frazier SARS-CoV-2 (COVID-19) RNA RHIANNON+probe Ql (Unsp spec) Negative Normal NEGATIVE [facility] Comment on above: Performed By: #### C VDAGS ####[facility] Uqvspbrfol8366[address] [place], [place] [address]Dr. hCrissy Frazier AMYLASEon 04-04-2022 Amylase [Catalytic activity/Vol] 40 U/L Normal 25-115 [facility] Comment on above: Performed By: #### C MP, TERRENCE, LIPA ####[facility] Geiykzzsct2634[address] [place], [place] [address]Dr. Chrissy Frazier CBC AUTO DIFFon 04-04-2022 BASO # 0.1 103/ul Normal 0.0-0.1 [facility] Comment on above: Performed By: #### C BC ####[facility] Awzazpysie8393[address] [place], [place] [address]Dr. Chrissy Frazier Basophils/100 WBC (Bld) 0.4 % Normal 0.2-2.0 [facility] Comment on above: Performed By: #### C BC ####[facility] Zzrflssfjt9548[address] [place], [place] [address]Dr. Chrissy Frazier EO # 0.1 103/ul Normal 0.0-0.7 [facility] Comment on above: Performed By: #### C BC ####[facility] Yrdseapwcs9[address] [place], [place] [address]Dr. Chrissy Frazier Eosinophils/100 WBC (Bld) 0.6 % Critically low 0.9-7.0 [facility] Comment on above: Performed By: #### C BC ####[facility] Vdazdisfpf4557[address] [place], [place] [address]Dr. Chrissy Frazier Erythrocyte distribution width (RBC) [Ratio] 13.2 % Normal 11.0-15.0 [facility] Comment on above: Performed By: #### C BC ####[facility] Xrjthzeoem4031 [place] [address]Dr. Chrissy Frazier Hematocrit (Bld) [Volume fraction] 48.3 % Normal 42.0-54.0 [facility] Comment on above: Performed By: #### C BC ####[facility] Ztlnnfsrjf6978 [place] [address]Dr. Chrissy Frazier Hemoglobin (Bld) [Mass/Vol] 16.1 g/dL Normal 14.0-18.0 [facility] Comment on above: Performed By: #### C BC ####[facility] Tmhqirzcud13[address] [place], [place] [address]Dr. Chrissy Frazier IG # 0.12 10e3/ul Critically high 0.00-0.03 [facility] Comment on above: Performed By: #### C BC ####[facility] Hsixiswqph0687[address] [place], [place] [address]Dr. Chrissy Frazier IG % 0.9 % Critically high 0.0-0.5 [facility] Comment on above: Performed By: #### C BC ####[facility] Ewpfwailoh[address] [place], [place] [address]Dr. Chrissy Frazier LYMPH # 3.0 103/ul Normal 1.2-3.8 [facility] Comment on above: Performed By: #### C BC ####[facility] Hzqbwjglbm038[address] [place], [place] [address]Dr. Chrissy Frazier Lymphocytes/100 WBC (Bld) 22.3 % Normal 20.5-60.0 [facility] Comment on above: Performed By: #### C BC ####[facility] Imnkuvuglj9350[address] [place], [place] [address]DrNancy Frazier MANUAL DIFF REQ NO Normal [facility] Comment on above: Performed By: #### C BC ####[facility] Agjbaqkocu112[address] [place], [place] [address]DrNancy Frazier MCH (RBC) [Entitic mass] 28.6 pg Normal 25.9-34.0 [facility] Comment on above: Performed By: #### C BC ####[facility] Kapenqqpak7422 [place] [id number]. Chrissy Freddie MCHC (RBC) [Mass/Vol] 33.3 g/dL Normal 29.9-35.2 [facility] Comment on above: Performed By: #### C BC ####[facility] Xwyxtakitj2273 [place] [id number]. Tishrowan Freddie MCV (RBC) [Entitic vol] 85.9 fL Normal 80.0-94.0 [facility] Comment on above: Performed By: #### C BC ####[facility] Ttcpnkbxnm[address] [place], [place] [address]Dr. Chrissy Frazier MONO # 0.8 103/ul Normal 0.3-0.8 [facility] Comment on above: Performed By: #### C BC ####[facility] Lpjkxvnefm30[address] [place], [place] [address]Dr. Chrissy Frazier Monocytes/100 WBC (Bld) 5.7 % Normal 1.7-12.0 [facility] Comment on above: Performed By: #### C BC ####[facility] Eaotsuepyw[address] [place], [place] [address]Dr. Chrissy Frazier NEUT # 9.3 103/ul Critically high 1.4-6.5 [facility] Comment on above: Performed By: #### C BC ####[facility] Lcgwagyybk[address] [place], [place] [address]Dr. Chrissy Frazier Neutrophils/100 WBC (Bld) 70.1 % Normal 43.0-75.0 [facility] Comment on above: Performed By: #### C BC ####[facility] Wwhkglvtyu[address] [place], [place] [address]DrNancy Frazier Platelet mean volume (Bld) [Entitic vol] 10.3 fL Normal 9.5-13.5 [facility] Comment on above: Performed By: #### C BC ####[facility] Wxhkgsqvrb[address] [place], [place] [address]Dr. Chrissy Frazier PLT 461 103/ul Critically high 150-450 [facility] Comment on above: Performed By: #### C BC ####[facility] Zxtojlxuzk6405 [place] [address]Dr. Tishrowan Freddie RBC 5.62 106/ul Normal 4.70-6.10 [facility] Comment on above: Performed By: #### C BC ####[facility] Fsycmokxjs7920 [place] [id number]. Chrissy Frazier WBC 13.3 103/ul Critically high 4.0-11.0 [facility] Comment on above: Performed By: #### C BC ####[facility] Rjgoqptrug0105 [place] [address]Dr. Chrissy Frazier LIPASEon 04-04-2022 Lipase [Catalytic activity/Vol] 118.0 U/L Normal 73.0-393.0 [facility] Comment on above: Performed By: #### C MP, TERRENCE, LIPA ####[facility] Uoqkaqjmrn7357 [place] [address]Dr. Chrissy Frazier PROF 14(COMP METB)on 022 Albumin [Mass/Vol] 4.3 g/dL Normal 3.4-5.0 [facility] Comment on above: Performed By: #### C MP, TERRENCE, LIPA ####[facility] Yxoprysprn0017 [place] [address]Dr. Chrissy Frazier Albumin/Globulin [Mass ratio] 1.0 {ratio} Normal [facility] Comment on above: Performed By: #### C MP, TERRENCE, LIPA ####[facility] Lwjypnayrp5071 [place] [address]Dr. Chrissy Frazier ALP [Catalytic activity/Vol] 84 U/L Normal 46-116 [facility] Comment on above: Performed By: #### C MP, TERRENCE, LIPA ####[facility] Bdcwkgzjjf1219 [place] [address]Dr. Chrissy Frazier ALT [Catalytic activity/Vol] 81 U/L Critically high 16-63 [facility] Comment on above: Performed By: #### C MP, TERRENCE, LIPA ####[facility] Qhjckkcfxe8260 [place] [id number]. Chrissy Frazier Anion gap [Moles/Vol] 17.9 mmol/L Normal [facility] Comment on above: Performed By: #### C MP, TERRENCE, LIPA ####[facility] Ftjllawhgw3386 [place] [address]Dr. Chrissy Frazier AST [Catalytic activity/Vol] 25 U/L Normal 15-37 [facility] Comment on above: Performed By: #### C MP, TERRENCE, LIPA ####[facility] Vvzfucibuj0863 [place] [address]Dr. Chrissy Frazier Bilirubin [Mass/Vol] 0.5 mg/dL Normal 0.2-1.0 [facility] Comment on above: Performed By: #### C MP, TERRENCE, LIPA ####[facility] Awofhowuyv6380 [place] [address]Dr. Chrissy Frazier Calcium [Mass/Vol] 9.6 mg/dL Normal 8.5-10.1 [facility] Comment on above: Performed By: #### C MP, TERRENCE, LIPA ####[facility] Krugdoleal8549 [place] [address]Dr. Chrissy Frazier Chloride [Moles/Vol] 101 mmol/L Normal 98-107 [facility] Comment on above: Performed By: #### C MP, TERRENCE, LIPA ####[facility] Fhedtarpij6651 [place] [address]Dr. Chrissy Frazier CO2 [Moles/Vol] 18.6 mmol/L Critically low 21.0-32.0 [facility] Comment on above: Performed By: #### C MP, TERRENCE, LIPA ####[facility] Cvlzgkbizl3164 [place] [address]Dr. Chrissy Frazier Creatinine [Mass/Vol] 1.39 mg/dL Critically high 0.70-1.30 [facility] Comment on above: Performed By: #### C MP, TERRENCE, LIPA ####[facility] Uwzgesadti4001 [place] [address]Dr. Chrissy Frazier EGFR-AF TUVALUAN >60 Normal >=60 [facility] Comment on above: Performed By: #### C MP, TERRENCE, LIPA ####[facility] Uunnjtcsyg6609 [place] [address]Dr. Chrissy Frazier EGFR-NON AF TUVALUAN 59 mL/min/1.73m2 Critically low >=60 [facility] Comment on above: Performed By: #### C MP, TERRENCE, LIPA ####[facility] Rkjonsuzlu7074 [place] [address]Dr. Chrissy Frazier Globulin (S) [Mass/Vol] 4.3 g/dL Normal [facility] Comment on above: Performed By: #### C MP, TERRENCE, LIPA ####[facility] Irciwlngyh9168 [place] [address]Dr. Chrissy Frazier Glucose [Mass/Vol] 132 mg/dL Critically high 74-106 [facility] Comment on above: Performed By: #### C MP, TERRENCE, LIPA ####[facility] Ziqwpupwrr27[address] [place], [place] [address]Dr. Chrissy Frazier Potassium [Moles/Vol] 3.5 mmol/L Normal 3.5-5.1 [facility] Comment on above: Performed By: #### C MP, TERRENCE, LIPA ####[facility] Dvhsknhnhi8330[address] [place], [place] [address]Dr. Chrissy Frazier Protein [Mass/Vol] 8.6 g/dL Critically high 6.4-8.2 [facility] Comment on above: Performed By: #### C MP, TERRENCE, LIPA ####[facility] Knfmealtsm7179 [place] [address]Dr. Chrissy Frazier Sodium [Moles/Vol] 134 mmol/L Critically low 136-145 [facility] Comment on above: Performed By: #### C MP, TERRENCE, LIPA ####[facility] Iwerwnjajq0199 [place] [address]Dr. Chrissy Frazier Urea nitrogen [Mass/Vol] 8.0 mg/dL Normal 7.0-18.0 [facility] Comment on above: Performed By: #### C MP, TERRENCE, LIPA ####[facility] Agbpfjcbdy9699 [place] [address]Dr. Chrissy Frazier Urea nitrogen/Creatinine [Mass ratio] 5.8 mg/mg Normal [facility] Comment on above: Performed By: #### C TERRENCE ADAIR LIPA ####[facility] Dtjwadqapg6153 [place] [address]Dr. Chrissy Frazier XR ABD FLAT UP_PA Enoch 04-04 XR ABD FLAT UP_PA CH Normal [facility] AMMONIAon 03-31-2022 Ammonia (P) [Moles/Vol] 19 umol/L Normal 11-32 [facility] Comment on above: Performed By: #### A MM ####[facility] Ktelybtigh42[address] [place], [place] [address]Dr. Chrissy Freddie CBC AUTO DIFFon 03-31-2022 BASO # 0.1 103/ul Normal 0.0-0.1 [facility] Comment on above: Performed By: #### C BC ####[facility] Abvijcqrmr[address] [place], [place] [address]Dr. Chrissy Freddie Basophils/100 WBC (Bld) 0.5 % Normal 0.2-2.0 [facility] Comment on above: Performed By: #### C BC ####[facility] Fctjsnsgse[address] [place], [place] [address]Dr. Chrissy Frazier EO # 0.2 103/ul Normal 0.0-0.7 [facility] Comment on above: Performed By: #### C BC ####[facility] Dlfykzplzt[address] [place], [place] [address]Dr. Tishrowan Frazier Eosinophils/100 WBC (Bld) 1.6 % Normal 0.9-7.0 [facility] Comment on above: Performed By: #### C BC ####[facility] Mskuglwxpz01[address] [place], [place] [address]Dr. Chrissy Freddie Erythrocyte distribution width (RBC) [Ratio] 13.2 % Normal 11.0-15.0 [facility] Comment on above: Performed By: #### C BC ####[facility] Kzwygyrxyb[address] [place], [place] [address]Dr. Chrissy Frazier Hematocrit (Bld) [Volume fraction] 42.1 % Normal 42.0-54.0 [facility] Comment on above: Performed By: #### C BC ####[facility] Cyokpfqibh2884 [place] [address]Dr. Chrissy Frazier Hemoglobin (Bld) [Mass/Vol] 14.3 g/dL Normal 14.0-18.0 [facility] Comment on above: Performed By: #### C BC ####[facility] [address]urb[address] [place] [address]Dr. Chrissy Frazier IG # 0.05 10e3/ul Critically high 0.00-0.03 [facility] Comment on above: Performed By: #### C BC ####[facility] Kghgmmnemd[address] [place] [address]Dr. Chrissy Frazier IG % 0.5 % Normal 0.0-0.5 [facility] Comment on above: Performed By: #### C BC ####[facility] Gjqgpwtone5[address] [place] [address]Dr. Chrissy Frazier LYMPH # 2.9 103/ul Normal 1.2-3.8 [facility] Comment on above: Performed By: #### C BC ####[facility] Mpxnbcsigd5533 [place] [address]Dr. Chrissy Frazier Lymphocytes/100 WBC (Bld) 25.7 % Normal 20.5-60.0 [facility] Comment on above: Performed By: #### C BC ####[facility] Lhjjqgakzl69[address] [place] [address]Dr. Chrissy Frazier MANUAL DIFF REQ NO Normal [facility] Comment on above: Performed By: #### C BC ####[facility] Avhuqlwzqj7732 [place] [address]Dr. Chrissy Frazier MCH (RBC) [Entitic mass] 29.2 pg Normal 25.9-34.0 [facility] Comment on above: Performed By: #### C BC ####[facility] Mpvwasbglw8867 [place] [address]Dr. Chrissy Frazier MCHC (RBC) [Mass/Vol] 34.0 g/dL Normal 29.9-35.2 [facility] Comment on above: Performed By: #### C BC ####[facility] Tkquywiljk00[address] [place] [id number]. Chrissy Frazier MCV (RBC) [Entitic vol] 85.9 fL Normal 80.0-94.0 [facility] Comment on above: Performed By: #### C BC ####[facility] Dtvqlptjwa5492 [place] [id number]. Chrissy Freddie MONO # 1.0 103/ul Critically high 0.3-0.8 [facility] Comment on above: Performed By: #### C BC ####[facility] Woootczofn8[address] [place] [address]Dr. Chrissy Frazier Monocytes/100 WBC (Bld) 8.6 % Normal 1.7-12.0 [facility] Comment on above: Performed By: #### C BC ####[facility] Mtfucrewax[address] [place], [place] [address]Dr. Chrissy Frazier NEUT # 7.0 103/ul Critically high 1.4-6.5 [facility] Comment on above: Performed By: #### C BC ####[facility] Lbzqxqvcaz3960[address] [place], [place] [address]Dr. Tishrowan Frazier Neutrophils/100 WBC (Bld) 63.1 % Normal 43.0-75.0 [facility] Comment on above: Performed By: #### C BC ####[facility] Baiiaoxdzf[address] [place] [id number]. Tishrowan Frazier Platelet mean volume (Bld) [Entitic vol] 10.4 fL Normal 9.5-13.5 [facility] Comment on above: Performed By: #### C BC ####[facility] Eddcskwvjg5[address] [place] [id number]. Chrissy Frazier PLT 308 103/ul Normal 150-450 [facility] Comment on above: Performed By: #### C BC ####[facility] Ilqagfkoyg473[address] [place], [place] [address]Dr. Chrissy Frazier RBC 4.90 106/ul Normal 4.70-6.10 [facility] Comment on above: Performed By: #### C BC ####[facility] Bwpvoytwzk0330 [place] [address]Dr. Tishrowan Freddie WBC 11.1 103/ul Critically high 4.0-11.0 [facility] Comment on above: Performed By: #### C BC ####[facility] Xnezbmyfsb9[address] [place] [address]Dr. Chrissy Frazier PROF 14(COMP METB)on 022 Albumin [Mass/Vol] 3.5 g/dL Normal 3.4-5.0 [facility] Comment on above: Performed By: #### C MP ####[facility] Cyyuqdvkoa09[address] [place], [place] [address]Dr. Chrissy Frazier Albumin/Globulin [Mass ratio] 0.9 {ratio} Normal [facility] Comment on above: Performed By: #### C MP ####[facility] Pqdcatvahn3952[address] [place], [place] [address]Dr. Tishrowan Frazier ALP [Catalytic activity/Vol] 68 U/L Normal 46-116 [facility] Comment on above: Performed By: #### C MP ####[facility] Mlciworvbg42[address] [place], [place] [address]Dr. Chrissy Frazier ALT [Catalytic activity/Vol] 113 U/L Critically high 16-63 [facility] Comment on above: Performed By: #### C MP ####[facility] Ehapmjzvnw4248[address] [place], [place] [address]Dr. Chrissy Frazier Anion gap [Moles/Vol] 14.0 mmol/L Normal [facility] Comment on above: Performed By: #### C MP ####[facility] Zoovqftajy106[address] [place], [place] [address]Dr. Chrissy Frazier AST [Catalytic activity/Vol] 31 U/L Normal 15-37 [facility] Comment on above: Performed By: #### C MP ####[facility] Fczmujrcmx2372[address] [place], [place] [address]Dr. Chrissy Frazier Bilirubin [Mass/Vol] 0.6 mg/dL Normal 0.2-1.0 [facility] Comment on above: Performed By: #### C MP ####[facility] Jkyxusqsks7922[address] [place], [place] [address]Dr. Chrissy Frazier Calcium [Mass/Vol] 8.4 mg/dL Critically low 8.5-10.1 [facility] Comment on above: Performed By: #### C MP ####[facility] Evxkhoavbi7116[address] [place], [place] [address]Dr. Chrissy Frazier Chloride [Moles/Vol] 101 mmol/L Normal 98-107 [facility] Comment on above: Performed By: #### C MP ####[facility] Dvwqwcxbxm1101[address] [place], [place] [address]Dr. Chrissy Frazier CO2 [Moles/Vol] 24.2 mmol/L Normal 21.0-32.0 [facility] Comment on above: Performed By: #### C MP ####[facility] Fsjuulhewx062132 [address] [place], [place] [address]Dr. Chrissy Frazier Creatinine [Mass/Vol] 1.15 mg/dL Normal 0.70-1.30 [facility] Comment on above: Performed By: #### C MP ####[facility] Umtjftpczd4033[address] [place], [place] [address]Dr. Chrissy Frazier EGFR-AF TUVALUAN >60 Normal >=60 [facility] Comment on above: Performed By: #### C MP ####[facility] Mqtvkrwknb7544[address] [place], [place] [address]Dr. Chrissy Frazier EGFR-NON AF TUVALUAN >60 Normal >=60 [facility] Comment on above: Performed By: #### C MP ####[facility] Ownmwfhuud3912[address] [place], [place] [address]Dr. Chrissy Frazier Globulin (S) [Mass/Vol] 3.8 g/dL Normal [facility] Comment on above: Performed By: #### C MP ####[facility] Ktmqptgmkb8938[address] [place], [place] [address]Dr. Chrissy Frazier Glucose [Mass/Vol] 100 mg/dL Normal 74-106 [facility] Comment on above: Performed By: #### C MP ####[facility] Rzbzuumkwo1224 [place] [address]Dr. Chrissy Frazier Potassium [Moles/Vol] 3.2 mmol/L Critically low 3.5-5.1 [facility] Comment on above: Performed By: #### C MP ####[facility] Fwuwvwsyir9909[address] [place], [place] [address]Dr. Chrissy Frazier Protein [Mass/Vol] 7.3 g/dL Normal 6.4-8.2 [facility] Comment on above: Performed By: #### C MP ####[facility] Puscmngvce0765[address] [place], [place] [address]Dr. Chrissy Frazier Sodium [Moles/Vol] 136 mmol/L Normal 136-145 [facility] Comment on above: Performed By: #### C MP ####[facility] Oyqlfvvhiq9453[address] [place], [place] [address]Dr. Chrissy Frazier Urea nitrogen [Mass/Vol] 13.0 mg/dL Normal 7.0-18.0 [facility] Comment on above: Performed By: #### C MP ####[facility] Zjalamgpsh8880[address] [place], [place] [address]Dr. Chrissy Frazier Urea nitrogen/Creatinine [Mass ratio] 11.3 mg/mg Normal [facility] Comment on above: Performed By: #### C MP ####[facility] Wzpcqbpeks1875[address] [place], [place] [address]Dr. Chrissy Frazier AMMONIAon 03-30-2022 Ammonia (P) [Mass/Vol] ug/dL Critically low 11-32 [facility] Comment on above: Performed By: #### A MM ####[facility] Doonlgqnqq5104[address] [place], [place] [address]Dr. Chrissy Frazier CBC AUTO DIFFon 03-30-2022 BASO # 0.1 103/ul Normal 0.0-0.1 [facility] Comment on above: Performed By: #### C BC ####[facility] Ivdmshwcaj549[address] [place], [place] [address]Dr. Chrissy Frazier Basophils/100 WBC (Bld) 0.5 % Normal 0.2-2.0 [facility] Comment on above: Performed By: #### C BC ####[facility] Ejdbdhukax02[address] [place] [address]Dr. Chrissy Frazier EO # 0.1 103/ul Normal 0.0-0.7 [facility] Comment on above: Performed By: #### C BC ####[facility] Gkjssxlrmx1472[address] [place], [place] [address]Dr. Chrissy Frazier Eosinophils/100 WBC (Bld) 1.1 % Normal 0.9-7.0 [facility] Comment on above: Performed By: #### C BC ####[facility] Qfmeixstkd7687[address] [place], [place] [address]Dr. Chrissy Frazier Erythrocyte distribution width (RBC) [Ratio] 13.4 % Normal 11.0-15.0 [facility] Comment on above: Performed By: #### C BC ####[facility] Yztxpfrmyc7544[address] [place], [place] [address]Dr. Chrissy Frazier Hematocrit (Bld) [Volume fraction] 45.8 % Normal 42.0-54.0 [facility] Comment on above: Performed By: #### C BC ####[facility] Iorpxbeuez584[address] [place], [place] [address]Dr. Chrissy Frazier Hemoglobin (Bld) [Mass/Vol] 14.9 g/dL Normal 14.0-18.0 [facility] Comment on above: Performed By: #### C BC ####[facility] Vebzvnbyjl6723[address] [place], [place] [address]Dr. Chrissy Frazier IG # 0.05 10e3/ul Critically high 0.00-0.03 [facility] Comment on above: Performed By: #### C BC ####[facility] Ajrsschpvk587[address] [place], [place] [address]Dr. Chrissy Frazier IG % 0.5 % Normal 0.0-0.5 [facility] Comment on above: Performed By: #### C BC ####[facility] Ahrdqjavhq9408[address] [place], [place] [address]Dr. Chrissy Frazier LYMPH # 3.0 103/ul Normal 1.2-3.8 [facility] Comment on above: Performed By: #### C BC ####[facility] Htxnlusdit4267 [place] [address]Dr. Chrissy Frazier Lymphocytes/100 WBC (Bld) 30.2 % Normal 20.5-60.0 [facility] Comment on above: Performed By: #### C BC ####[facility] Rffjcreldf[address] [place] [address]Dr. Chrissy Frazier MANUAL DIFF REQ NO Normal [facility] Comment on above: Performed By: #### C BC ####[facility] Ixthiqpcuq5838 [place] [address]Dr. Chrissy Frazier MCH (RBC) [Entitic mass] 28.4 pg Normal 25.9-34.0 [facility] Comment on above: Performed By: #### C BC ####[facility] Qhdroxiamp0586[address] [place], [place] [address]Dr. Chrissy Frazier MCHC (RBC) [Mass/Vol] 32.5 g/dL Normal 29.9-35.2 [facility] Comment on above: Performed By: #### C BC ####[facility] Weiqjdakdo5384[address] [place], [place] [address]Dr. Chrissy Frazier MCV (RBC) [Entitic vol] 87.4 fL Normal 80.0-94.0 [facility] Comment on above: Performed By: #### C BC ####[facility] Etqzckqssd9825[address] [place], [place] [address]Dr. Chrissy Frazier MONO # 0.8 103/ul Normal 0.3-0.8 [facility] Comment on above: Performed By: #### C BC ####[facility] Lgkivosfey2223[address] [place], [place] [address]Dr. Chrissy Frazier Monocytes/100 WBC (Bld) 7.9 % Normal 1.7-12.0 [facility] Comment on above: Performed By: #### C BC ####[facility] Xodgclkzsm986[address] [place], [place] [address]Dr. Yirowan Frazier NEUT # 5.9 103/ul Normal 1.4-6.5 [facility] Comment on above: Performed By: #### C BC ####[facility] Mbgnjdzksr6748 [place] [address]DrNancy Frazier Neutrophils/100 WBC (Bld) 59.8 % Normal 43.0-75.0 [facility] Comment on above: Performed By: #### C BC ####[facility] Tiekeujdpz0098 [place] [address]DrNancy Frazier Platelet mean volume (Bld) [Entitic vol] 10.1 fL Normal 9.5-13.5 [facility] Comment on above: Performed By: #### C BC ####[facility] Ycsgyntaxb220[address] [place], [place] [address]DrNancy Frazier PLT 320 103/ul Normal 150-450 [facility] Comment on above: Performed By: #### C BC ####[facility] Hrebqzeyba119[address] [place], [place] [address]DrNancy Frazier RBC 5.24 106/ul Normal 4.70-6.10 [facility] Comment on above: Performed By: #### C BC ####[facility] Xbvmafdxdr5724[address] [place], [place] [address]DrNancy Frazier WBC 9.9 103/ul Normal 4.0-11.0 [facility] Comment on above: Performed By: #### C BC ####[facility] Sebxmgnryd5249[address] [place], [place] [address]Dr. Chrissy Frazier PROF 14(COMP METB)on 022 Albumin [Mass/Vol] 3.9 g/dL Normal 3.4-5.0 [facility] Comment on above: Performed By: #### C MP ####[facility] Ofbtyaldhi262[address] [place], [place] [address]DrNancy Frazier Albumin/Globulin [Mass ratio] 1.1 {ratio} Normal [facility] Comment on above: Performed By: #### C MP ####[facility] Ujqvxlxnrc9428[address] [place], [place] [address]DrNancy Lowe Frazier ALP [Catalytic activity/Vol] 88 U/L Normal 46-116 [facility] Comment on above: Performed By: #### C MP ####[facility] Kdqmtcltxy8626 [place] [address]Dr. Chrissy Frazier ALT [Catalytic activity/Vol] 161 U/L Critically high 16-63 [facility] Comment on above: Performed By: #### C MP ####[facility] Qreikjihxv4330[address] [place], [place] [address]Dr. Chrissy Freddie Anion gap [Moles/Vol] 12.3 mmol/L Normal [facility] Comment on above: Performed By: #### C MP ####[facility] Gpzanwqniw4514[address] [place], [place] [address]Dr. Chrissy Freddie AST [Catalytic activity/Vol] 64 U/L Critically high 15-37 [facility] Comment on above: Performed By: #### C MP ####[facility] Kpqzgvfeeu3382[address] [place], [place] [address]Dr. Chrissy Freddie Bilirubin [Mass/Vol] 0.8 mg/dL Normal 0.2-1.0 [facility] Comment on above: Performed By: #### C MP ####[facility] Onzkvjonbp3388[address] [place], [place] [address]Dr. Chrissy Freddie Calcium [Mass/Vol] 8.4 mg/dL Critically low 8.5-10.1 [facility] Comment on above: Performed By: #### C MP ####[facility] Cjrstnespy6257[address] [place], [place] [address]Dr. Chrissy Freddie Chloride [Moles/Vol] 103 mmol/L Normal 98-107 [facility] Comment on above: Performed By: #### C MP ####[facility] Afoqzmecal5580[address] [place], [place] [address]Dr. Chrissy Frazier CO2 [Moles/Vol] 26.5 mmol/L Normal 21.0-32.0 [facility] Comment on above: Performed By: #### C MP ####[facility] Zhwjrwhbnb5939[address] [place], [place] [address]Dr. Chrissy Frazier Creatinine [Mass/Vol] 1.24 mg/dL Normal 0.70-1.30 [facility] Comment on above: Performed By: #### C MP ####[facility] Uivhfgmikj9552 [place] [address]Dr. Chrissy Frazier EGFR-AF TUVALUAN >60 Normal >=60 [facility] Comment on above: Performed By: #### C MP ####[facility] Fjcgrwjszi2603 [place] [address]Dr. Chrissy Freddie EGFR-NON AF TUVALUAN >60 Normal >=60 [facility] Comment on above: Performed By: #### C MP ####[facility] Pjhtinsibv8276 [place] [address]Dr. Chrissy Freddie Globulin (S) [Mass/Vol] 3.7 g/dL Normal [facility] Comment on above: Performed By: #### C MP ####[facility] Lzmljufzjk42[address] [place], [place] [address]Dr. Chrissy Freddie Glucose [Mass/Vol] 108 mg/dL Critically high 74-106 [facility] Comment on above: Performed By: #### C MP ####[facility] Pxlibenyxm8480 [place] [address]Dr. Chrissy Freddie Potassium [Moles/Vol] 3.8 mmol/L Normal 3.5-5.1 [facility] Comment on above: Performed By: #### C MP ####[facility] Fxgmmcbmzq0680 [place] [address]Dr. Chrissy Freddie Protein [Mass/Vol] 7.6 g/dL Normal 6.4-8.2 [facility] Comment on above: Performed By: #### C MP ####[facility] Apozhnqklb4988 [place] [address]Dr. Chrissy Frazier Sodium [Moles/Vol] 138 mmol/L Normal 136-145 [facility] Comment on above: Performed By: #### C MP ####[facility] Fbzmstxgul3395 [place] [address]Dr. Chrissy Freddie Urea nitrogen [Mass/Vol] 12.0 mg/dL Normal 7.0-18.0 [facility] Comment on above: Performed By: #### C MP ####[facility] Mhsvqbjmaz7748[address] [place], [place] [address]Dr. Chrissy Frazier Urea nitrogen/Creatinine [Mass ratio] 9.7 mg/mg Normal [facility] Comment on above: Performed By: #### C MP ####[facility] Viuuszrmly6918[address] [place], [place] [address]Dr. Chrissy Frazier AMMONIAon 03-29-2022 Ammonia (P) [Moles/Vol] 27 umol/L Normal 11-32 [facility] Comment on above: Performed By: #### A MM ####[facility] Wjoxyrhvyu6958[address] [place], [place] [address]Dr. Chrissy Frazier AMYLASEon 03-29-2022 Amylase [Catalytic activity/Vol] 29 U/L Normal 25-115 [facility] Comment on above: Performed By: #### L IPA, TERRENCE ####[facility] Frrolciclb6712[address] [place], [place] [address]Dr. Chrissy Frazier CBC AUTO DIFFon 03-29-2022 BASO # 0.0 103/ul Normal 0.0-0.1 [facility] Comment on above: Performed By: #### C BC ####[facility] Gppbopkbrs00[address] [place], [place] [address]Dr. Chrissy Frazier Basophils/100 WBC (Bld) 0.2 % Normal 0.2-2.0 [facility] Comment on above: Performed By: #### C BC ####[facility] Woduofshtm0888[address] [place], [place] [address]Dr. Chrissy Frazier EO # 0.0 103/ul Normal 0.0-0.7 [facility] Comment on above: Performed By: #### C BC ####[facility] Rlkajlbvrd76[address] [place], [place] [address]Dr. Chrissy Frazier Eosinophils/100 WBC (Bld) 0.4 % Critically low 0.9-7.0 [facility] Comment on above: Performed By: #### C BC ####[facility] Iyboguvzbb1546[address] [place], [place] [address]Dr. Chrissy Frazier Erythrocyte distribution width (RBC) [Ratio] 13.6 % Normal 11.0-15.0 [facility] Comment on above: Performed By: #### C BC ####[facility] Tihuxznrik5153 [place] [address]Dr. Chrissy Frazier Hematocrit (Bld) [Volume fraction] 45.2 % Normal 42.0-54.0 [facility] Comment on above: Performed By: #### C BC ####[facility] Feiruznlew7749[address] [place], [place] [address]Dr. Chrissy Frazier Hemoglobin (Bld) [Mass/Vol] 14.8 g/dL Normal 14.0-18.0 [facility] Comment on above: Performed By: #### C BC ####[facility] Aasaacwzor2000[address] [place], [place] [address]Dr. Tishrowan Frazier IG # 0.03 10e3/ul Normal 0.00-0.03 [facility] Comment on above: Performed By: #### C BC ####[facility] Gsvlmmlbgz1283[address] [place], [place] [address]Dr. Chrissy Frazier IG % 0.3 % Normal 0.0-0.5 [facility] Comment on above: Performed By: #### C BC ####[facility] Zochfudkyk999[address] [place], [place] [address]Dr. Chrissy Frazier LYMPH # 2.0 103/ul Normal 1.2-3.8 [facility] Comment on above: Performed By: #### C BC ####[facility] Ccvcuoopde8068[address] [place], [place] [address]Dr. Chrissy Freddie Lymphocytes/100 WBC (Bld) 18.3 % Critically low 20.5-60.0 [facility] Comment on above: Performed By: #### C BC ####[facility] Abtmgwqjin3686[address] [place], [place] [address]Dr. Tishrowan Frazier MANUAL DIFF REQ NO Normal [facility] Comment on above: Performed By: #### C BC ####[facility] Ruuakhmxrf237[address] [place], [place] [address]Dr. Chrissy Frazier MCH (RBC) [Entitic mass] 28.5 pg Normal 25.9-34.0 [facility] Comment on above: Performed By: #### C BC ####[facility] Divetdrugf2795 [place] [address]Dr. Chrissy Frazier MCHC (RBC) [Mass/Vol] 32.7 g/dL Normal 29.9-35.2 [facility] Comment on above: Performed By: #### C BC ####[facility] Oekciowqiu8588[address] [place], [place] [address]Dr. Chrissy Frazier MCV (RBC) [Entitic vol] 87.1 fL Normal 80.0-94.0 [facility] Comment on above: Performed By: #### C BC ####[facility] Wlseykfmim101[address] [place], [place] [address]Dr. Chrissy Frazier MONO # 0.9 103/ul Critically high 0.3-0.8 [facility] Comment on above: Performed By: #### C BC ####[facility] Yqoeaecasn6[address] [place], [place] [address]Dr. Chrissy Frazier Monocytes/100 WBC (Bld) 8.6 % Normal 1.7-12.0 [facility] Comment on above: Performed By: #### C BC ####[facility] Dierhhspmh25[address] [place], [place] [address]Dr. Tishrowan Frazier NEUT # 7.8 103/ul Critically high 1.4-6.5 [facility] Comment on above: Performed By: #### C BC ####[facility] Gqkwvdbdjz10[address] [place], [place] [address]Dr. Chrissy Frazier Neutrophils/100 WBC (Bld) 72.2 % Normal 43.0-75.0 [facility] Comment on above: Performed By: #### C BC ####[facility] Cuiynxyxmb8220[address] [place], [place] [address]Dr. Chrissy Frazier Platelet mean volume (Bld) [Entitic vol] 10.1 fL Normal 9.5-13.5 [facility] Comment on above: Performed By: #### C BC ####[facility] Cbnxtbrxsr99[address] [place] [id number]. Chrissy Frazier PLT 329 103/ul Normal 150-450 [facility] Comment on above: Performed By: #### C BC ####[facility] Ejwtkeftld7[address] [place] [address]Dr. Chrissy Frazier RBC 5.19 106/ul Normal 4.70-6.10 [facility] Comment on above: Performed By: #### C BC ####[facility] Mkpyqwqgpy06[address] [place] [id number]. Chrissy Frazier WBC 10.8 103/ul Normal 4.0-11.0 [facility] Comment on above: Performed By: #### C BC ####[facility] Kjfngeuhiq51[address] [place] [address]Dr. Chrissy Frazier LIPASEon 03-29-2022 Lipase [Catalytic activity/Vol] 58.0 U/L Critically low 73.0-393.0 [facility] Comment on above: Performed By: #### L TERRENCE VICTORIA ####[facility] Vjzakauonv6[address] [place] [address]Dr. Chrissy Frazier NM HEPATOBILIARY SCAN W EFon 03-29-2022 NM HEPATOBILIARY SCAN W EF Normal [facility] PROF 14(COMP METB)on 022 Albumin [Mass/Vol] 3.8 g/dL Normal 3.4-5.0 [facility] Comment on above: Performed By: #### C MP ####[facility] Qkabiescmt8[address] [place] [address]Dr. Chrissy Frazier Albumin/Globulin [Mass ratio] 1.0 {ratio} Normal [facility] Comment on above: Performed By: #### C MP ####[facility] [address]aboqhrxsa[address] [place] [id number]. Tishrowan Frazier ALP [Catalytic activity/Vol] 69 U/L Normal 46-116 [facility] [facility] Comment on above: Performed By: #### C MP ####[facility] [address]qchnapoi[address] [place] [address]Dr. Chrissy Frazier ALT [Catalytic activity/Vol] 117 U/L Critically high 16-63 [facility] Comment on above: Performed By: #### C MP ####[facility] Dkdmfubxeh17[address] [place] [id number]. Chrissy Frazier Anion gap [Moles/Vol] 16.7 mmol/L Normal [facility] Comment on above: Performed By: #### C MP ####[facility] Hgcefgkkgm15[address] [place] [phone]. Chrissy Frazier AST [Catalytic activity/Vol] 77 U/L Critically high 15-37 [facility] Comment on above: Performed By: #### C MP ####[facility] Hoemgvsvua40[address] [place] [phone]. Chrissy Freddie Bilirubin [Mass/Vol] 1.5 mg/dL Critically high 0.2-1.0 [facility] Comment on above: Performed By: #### C MP ####[facility] Lrrhmwvmlo87[address] [place] [address]Dr. Tishrowan Freddie Calcium [Mass/Vol] 8.1 mg/dL Critically low 8.5-10.1 [facility] Comment on above: Performed By: #### C MP ####[facility] Vfflkwfqok07[address] [place] [address]Dr. Chrissy Freddie Chloride [Moles/Vol] 101 mmol/L Normal 98-107 [facility] Comment on above: Performed By: #### C MP ####[facility] Ymbngapnpn9467 [place] [phone]. Chrissy Freddie CO2 [Moles/Vol] 24.5 mmol/L Normal 21.0-32.0 The [facility] Comment on above: Performed By: #### C MP ####[facility] Kklcetpiaq6540 [place] [phone]. Chrissy Freddie Creatinine [Mass/Vol] 1.17 mg/dL Normal 0.70-1.30 [facility] Comment on above: Performed By: #### C MP ####[facility] Ubkasdclpt6048 [place] [phone]. Chrissy Freddie EGFR-AF TUVALUAN >60 Normal >=60 The [facility] Comment on above: Performed By: #### C MP ####[facility] Gtvhfuyknu8642 [place] [phone]. Chrissy Frazier EGFR-NON AF TUVALUAN >60 Normal >=60 [facility] Comment on above: Performed By: #### C MP ####[facility] Wpwmhqnmyp6204 [place] [phone]. Chrissy Frazier Globulin (S) [Mass/Vol] 3.9 g/dL Normal [facility] Comment on above: Performed By: #### C MP ####[facility] Xytgtbhbsm4967 [place] [address]Dr. Chrissy Frazier Glucose [Mass/Vol] 104 mg/dL Normal 74-106 [facility] Comment on above: Performed By: #### C MP ####[facility] Qdamzxnjqc4458 [place] [address]Dr. Chrissy Frazier Potassium [Moles/Vol] 3.2 mmol/L Critically low 3.5-5.1 [facility] Comment on above: Performed By: #### C MP ####[facility] Ixuaebiava3902 [place] [address]Dr. Chrissy Frazier Protein [Mass/Vol] 7.7 g/dL Normal 6.4-8.2 [facility] Comment on above: Performed By: #### C MP ####[facility] Fbotpolicc4292 [place] [address]Dr. Chrissy Frazier Sodium [Moles/Vol] 139 mmol/L Normal 136-145 [facility] Comment on above: Performed By: #### C MP ####[facility] Jbrelrcbct5610 [place] [address]Dr. Chrissy Frazier Urea nitrogen [Mass/Vol] 11.0 mg/dL Normal 7.0-18.0 [facility] Comment on above: Performed By: #### C MP ####[facility] Jfwrnvdhdw9201 [place] [address]Dr. Chrissy Frazier Urea nitrogen/Creatinine [Mass ratio] 9.4 mg/mg Normal [facility] Comment on above: Performed By: #### C MP ####[facility] Cdwkjazdyf4574 [place] [address]Dr. Chrissy Frazier US SINGLE QUAD RT UPPERon US SINGLE QUAD RT UPPER Normal [facility] AMMONIAon 03-28-2022 Ammonia (P) [Moles/Vol] 12 umol/L Normal 11-32 [facility] Comment on above: Performed By: #### A MM ####[facility] Udvnbafhch5[address] [place] [address]Dr. Chrissy Frazier CBC AUTO DIFFon 03-28-2022 BASO # 0.0 103/ul Normal 0.0-0.1 [facility] Comment on above: Performed By: #### C BC ####[facility] Brqtkvlvpm01[address] [place], [place] [address]Dr. Chrissy Frazier Basophils/100 WBC (Bld) 0.1 % Critically low 0.2-2.0 [facility] Comment on above: Performed By: #### C BC ####[facility] Egnnegnmcb3[address] [place], [place] [address]Dr. Chrissy Frazier EO # 0.0 103/ul Normal 0.0-0.7 [facility] Comment on above: Performed By: #### C BC ####[facility] Zavryfqxoi6[address] [place], [place] [address]Dr. Chrissy Frazier Eosinophils/100 WBC (Bld) 0.0 % Critically low 0.9-7.0 [facility] Comment on above: Performed By: #### C BC ####[facility] Zjapplhsdh38[address] [place], [place] [address]Dr. Chrissy Frazier Erythrocyte distribution width (RBC) [Ratio] 14.0 % Normal 11.0-15.0 [facility] Comment on above: Performed By: #### C BC ####[facility] Bskjhnpgsd6[address] [place], [place] [address]Dr. Chrissy Frazier Hematocrit (Bld) [Volume fraction] 44.2 % Normal 42.0-54.0 [facility] Comment on above: Performed By: #### C BC ####[facility] Xaquzupcti37[address] [place], [place] [address]Dr. Chrissy Freddie Hemoglobin (Bld) [Mass/Vol] 14.7 g/dL Normal 14.0-18.0 [facility] Comment on above: Performed By: #### C BC ####[facility] Cepepclhhj[address] [place] [address]Dr. Tishrowan Frazier IG # 0.10 10e3/ul Critically high 0.00-0.03 The [facility] Comment on above: Performed By: #### C BC ####[facility] Besymmokfv8630 [place] [address]Dr. Chrissy Frazier IG % 0.5 % Normal 0.0-0.5 [facility] Comment on above: Performed By: #### C BC ####[facility] Fysnwfcgel9210 [place] [address]Dr. Chrissy Frazier LYMPH # 2.6 103/ul Normal 1.2-3.8 [facility] Comment on above: Performed By: #### C BC ####[facility] Xpcconzxqf1173 [place] [address]Dr. Chrissy Frazier Lymphocytes/100 WBC (Bld) 13.8 % Critically low 20.5-60.0 [facility] Comment on above: Performed By: #### C BC ####[facility] Ocbsisswml8153 [place] [address]Dr. Tishrowan Frazier MANUAL DIFF REQ NO Normal [facility] Comment on above: Performed By: #### C BC ####[facility] Aseykaiykd2370 [place] [address]Dr. Chrissy Freddie MCH (RBC) [Entitic mass] 29.0 pg Normal 25.9-34.0 [facility] Comment on above: Performed By: #### C BC ####[facility] Iiealyczxw5295 [place] [address]Dr. Chrissy Freddie MCHC (RBC) [Mass/Vol] 33.3 g/dL Normal 29.9-35.2 [facility] Comment on above: Performed By: #### C BC ####[facility] Qkwevomtwf8277 [place] [address]Dr. Chrissy Freddie MCV (RBC) [Entitic vol] 87.2 fL Normal 80.0-94.0 [facility] Comment on above: Performed By: #### C BC ####[facility] Tbbjnqqmcr0969 [place] [phone]. Chrissy Frazier MONO # 1.1 103/ul Critically high 0.3-0.8 [facility] Comment on above: Performed By: #### C BC ####[facility] Mgkswflpyc3900 [place] [address]Dr. Chrissy Frazier Monocytes/100 WBC (Bld) 5.9 % Normal 1.7-12.0 [facility] Comment on above: Performed By: #### C BC ####[facility] Ycraoufgwj67[address] [place], [place] [address]Dr. Chrissy Freddie NEUT # 15.1 103/ul Critically high 1.4-6.5 The [facility] Comment on above: Performed By: #### C BC ####[facility] Arfyuzzohc05[address] [place], [place] [address]Dr. Tishrowan Frazier Neutrophils/100 WBC (Bld) 79.7 % Critically high 43.0-75.0 [facility] Comment on above: Performed By: #### C BC ####[facility] Yjwjgkypjz5706 [place] [address]Dr. Chrissy Frazier Platelet mean volume (Bld) [Entitic vol] 10.3 fL Normal 9.5-13.5 [facility] Comment on above: Performed By: #### C BC ####[facility] Ypqoktjngk7[address] [place], [place] [address]Dr. Chrissy Frazier PLT 358 103/ul Normal 150-450 [facility] Comment on above: Performed By: #### C BC ####[facility] Lhnk[address]ocxc[address] [place], [place] [id number]. Chrissy Frazier RBC 5.07 106/ul Normal 4.70-6.10 [facility] Comment on above: Performed By: #### C BC ####[facility] Ypaftwimky[address] [place], [place] [address]Dr. Chrissy Frazier WBC 18.9 103/ul Critically high 4.0-11.0 [facility] Comment on above: Performed By: #### C BC ####[facility] Rchoybgdxd5127 [place] [address]DrNancy Frazier PROF 14(COMP METB)on 022 Albumin [Mass/Vol] 3.9 g/dL Normal 3.4-5.0 [facility] Comment on above: Performed By: #### C MP ####[facility] Cyfbqaetrs1835 [place] [address]Dr. Chrissy Frazier Albumin/Globulin [Mass ratio] 1.1 {ratio} Normal [facility] Comment on above: Performed By: #### C MP ####[facility] Xqzvksqaln8520 [place] [address]Dr. Chrissy Frazier ALP [Catalytic activity/Vol] 65 U/L Normal 46-116 [facility] Comment on above: Performed By: #### C MP ####[facility] Imotacvfjy4725[address] [place], [place] [address]Dr. Chrissy Frazier ALT [Catalytic activity/Vol] 46 U/L Normal 16-63 [facility] Comment on above: Performed By: #### C MP ####[facility] Sygajkpnqz44[address] [place], [place] [address]Dr. Chrissy Frazier Anion gap [Moles/Vol] 13.2 mmol/L Normal [facility] Comment on above: Performed By: #### C MP ####[facility] Nphorppatx045[address] [place], [place] [address]DrNancy Frazier AST [Catalytic activity/Vol] 33 U/L Normal 15-37 [facility] Comment on above: Performed By: #### C MP ####[facility] Isczehstpd86[address] [place], [place] [address]Dr. Chrissy Frazier Bilirubin [Mass/Vol] 0.8 mg/dL Normal 0.2-1.0 [facility] Comment on above: Performed By: #### C MP ####[facility] Nxlsydmrql[address] [place], [place] [address]Dr. Chrissy Frazier Calcium [Mass/Vol] 8.1 mg/dL Critically low 8.5-10.1 [facility] Comment on above: Performed By: #### C MP ####[facility] Knqlmmqgoz5386 [place] [address]Dr. Chrissy Frazier Chloride [Moles/Vol] 102 mmol/L Normal 98-107 [facility] Comment on above: Performed By: #### C MP ####[facility] Upkqnuuoup4171 [place] [address]Dr. Chrissy Frazier CO2 [Moles/Vol] 24.0 mmol/L Normal 21.0-32.0 [facility] Comment on above: Performed By: #### C MP ####[facility] Hhsarhtvfc0132[address] [place], [place] [address]Dr. Chrissy Frazier Creatinine [Mass/Vol] 1.26 mg/dL Normal 0.70-1.30 [facility] Comment on above: Performed By: #### C MP ####[facility] Mttyvbpcvp5[address] [place], [place] [address]Dr. Chrissy Frazier EGFR-AF TUVALUAN >60 Normal >=60 [facility] Comment on above: Performed By: #### C MP ####[facility] Ucbevizfte5[address] [place], [place] [address]Dr. Chrissy Frazier EGFR-NON AF TUVALUAN >60 Normal >=60 [facility] Comment on above: Performed By: #### C MP ####[facility] Khideszcnd8092 [place] [address]Dr. Chrissy Frazier Globulin (S) [Mass/Vol] 3.7 g/dL Normal [facility] Comment on above: Performed By: #### C MP ####[facility] Objnbnuluh0985 [place] [address]Dr. Chrissy Frazier Glucose [Mass/Vol] 119 mg/dL Critically high 74-106 [facility] Comment on above: Performed By: #### C MP ####[facility] Mleksoinnf3497 [place] [address]Dr. Chrissy Frazier Potassium [Moles/Vol] 3.2 mmol/L Critically low 3.5-5.1 [facility] Comment on above: Performed By: #### C MP ####[facility] Hjwsftdhul0447 [place] [address]Dr. Chrissy Frazier Protein [Mass/Vol] 7.6 g/dL Normal 6.4-8.2 [facility] Comment on above: Performed By: #### C MP ####[facility] Acvmkuoxwu5847 [place] [address]Dr. Chrissy Frazier Sodium [Moles/Vol] 136 mmol/L Normal 136-145 [facility] Comment on above: Performed By: #### C MP ####[facility] Lltjdcafom04[address] [place], [place] [address]Dr. Chrissy Frazier Urea nitrogen [Mass/Vol] 14.0 mg/dL Normal 7.0-18.0 [facility] Comment on above: Performed By: #### C MP ####[facility] Mpizgtqsth11[address] [place], [place] [address]Dr. Chrissy Frazier Urea nitrogen/Creatinine [Mass ratio] 11.1 mg/mg Normal [facility] Comment on above: Performed By: #### C MP ####[facility] Dlwcexuhcs57[address] [place], [place] [address]Dr. Chrissy Freddie CBC W MANUAL DIFFon 03-27-20 22 ATYPICAL LYMPH # Normal [facility] Comment on above: Performed By: #### C BCMAN ####[facility] Fiflyvqdeq425[address] [place], [place] [address]Dr. Chrissy Frazier ATYPICAL LYMPH % Normal [facility] Comment on above: Performed By: #### C BCMAN ####[facility] Yamynvljju8475[address] [place], [place] [address]Dr. Chrissy Frazier BAND # 0.0 103/ul Normal 0.0-0.3 [facility] Comment on above: Performed By: #### C BCMAN ####[facility] Hfelkgeamu1799 [place] [address]Dr. Chrissy Frazier BAND % 0 % Normal 0-5 [facility] Comment on above: Performed By: #### C BCMAN ####[facility] Xyzvnqrufm4248 [place] [id number]. Chrissy Frazier BASOM # 0.00 103/ul Normal 0.00-0.10 [facility] Comment on above: Performed By: #### C BCMAN ####[facility] Dfilcdrekc8709 [place] [id number]. Chrissy Frazier BASOM % 0.0 % Critically low 0.2-2.0 [facility] Comment on above: Performed By: #### C BCMAN ####[facility] Ranaqztnky7660 [place] [address]Dr. Chrissy Frazier BLAST # Normal [facility] Comment on above: Performed By: #### C BCLEANDRO ####[facility] Iytzrwjojn6133 [place] [address]Dr. Chrissy Frazier BLAST % Normal [facility] Comment on above: Performed By: #### C BCLEANDRO ####[facility] Njbnukwxxg[address] [place], [place] [address]Dr. Chrissy Frazier CORRECTED WBC Normal 4.0-11.0 [facility] Comment on above: Performed By: #### C BCLEANDRO ####[facility] Fnnwyymejc27[address] [place], [place] [address]Dr. Chrissy Frazier EOS # 0.00 103/ul Normal 0.00-0.70 [facility] Comment on above: Performed By: #### C BCLEANDRO ####[facility] Lyhljhsmmp7770 [place] [address]Dr. Chrissy Frazier EOS% 0.0 % Critically low 0.9-7.0 [facility] Comment on above: Performed By: #### C BCLEANDRO ####[facility] Qbccygwjja7740 [place] [address]Dr. Chrissy Frazier HCT 47.3 % Normal 42.0-54.0 [facility] Comment on above: Performed By: #### C BCLEANDRO ####[facility] Kkuvebbqcy5[address] [place], [place] [address]Dr. Chrissy Frazier HGB 16.4 g/dl Normal 14.0-18.0 [facility] Comment on above: Performed By: #### C ANTONETTE ####[facility] Twkchzqnzn1682 [place], [place] [address]Fe. Chrissy Frazier LYMPHM # 2.31 103/ul Normal 1.20-3.80 [facility] Comment on above: Performed By: #### Silverio WHITMAN ####[facility] Tnkluaavvc3798 [place], [place] [address]Ve. Chrissy Frazier LYMPHM% 9.0 % Critically low 20.5-60.0 [facility] Comment on above: Performed By: #### C ANTONETTE ####[facility] Yjhfftsbab9457 [place] [id number]. Chrissy Frazier MCH 28.6 pg Normal 25.9-34.0 [facility] Comment on above: Performed By: #### Silverio WHITMAN ####[facility] Chsmotexif4206 [place] [id number]. Chrissy Frazier MCHC 34.7 g/dl Normal 29.9-35.2 [facility] Comment on above: Performed By: #### Silverio WHITMAN ####[facility] Lwjvthwykt6244 [place] [id number]. Chrissy Frazier MCV 82.4 fL Normal 80.0-94.0 [facility] Comment on above: Performed By: #### Silverio WHITMAN ####[facility] Cogtwfqhzm6039 [place] [id number]. Chrissy Frazier METAMYELOCYTE # Normal [facility] Comment on above: Performed By: #### Silverio WHITMAN ####[facility] Swqnregtiw4741 [place] [id number]. Chrissy Frazier METAMYELOCYTE % Normal [facility] Comment on above: Performed By: #### C ANTONETTE ####[facility] Htsitwdmfb1429 [place] [id number]. Chrissy Frazier MONOM# 3.85 103/ul Critically high 0.30-0.80 [facility] Comment on above: Performed By: #### Silverio WHITMAN ####[facility] Qanzygfsdb7923 [place] [id number]. Chrissy Frazier MONOM% 15.0 % Critically high 1.7-12.0 [facility] Comment on above: Performed By: #### C ANTONETTE ####[facility] Lotnhfpvjk2393 [place] [id number]. Chrissy Frazier MPV 10.6 fL Normal 9.5-13.5 [facility] Comment on above: Performed By: #### C ANTONETTE ####[facility] Llurbfemce4445 [place] [id number]. Chrissy Frazier MYELOCYTE # Normal [facility] Comment on above: Performed By: #### C ANTONETTE ####[facility] Ebefawvejw5835 [place] [id number]. Chrissy Frazier MYELOCYTE % Normal [facility] Comment on above: Performed By: #### C ANTONETTE ####[facility] Sfzehkslik1154 [place] [id number]. Chrissy Frazier NRBC Normal [facility] Comment on above: Performed By: #### C ANTONETTE ####[facility] Pdfkhgealb3175 [place] [id number]. Chrissy Frazier PLT 471 103/ul Critically high 150-450 [facility] Comment on above: Performed By: #### C ANTONETTE ####[facility] Kinvdgbidu2171 [place] [id number]. Chrissy Frazier RBC 5.74 106/ul Normal 4.70-6.10 [facility] Comment on above: Performed By: #### C ANTONETTE ####[facility] Bqktjxvpey3250 [place] [id number]. Chrissy Frazier RDW 13.7 % Normal 11.0-15.0 [facility] Comment on above: Performed By: #### C ANTONETTE ####[facility] Hwsljzyjbd3930 [place] [id number]. Chrissy Frazier SEG # 19.53 103/ul Critically high 1.40-6.50 [facility] Comment on above: Performed By: #### C ANTONETTE ####[facility] Ghaetmlzko8954 [place] [address]Dr. Tishrowan Frazier SEG % 76.0 % Critically high 43.0-75.0 [facility] Comment on above: Performed By: #### C BCMAN ####[facility] Qqwfgxruoi9835 [place] [address]Dr. Tishrowan Frazier TOXIC GRANULATION SLIGHT Normal [facility] Comment on above: Result Comment: few vacoules Performed By: #### C BCLEANDRO ####[facility] Dgytsxnkqj5369 [place] [address]Dr. Chrissy Frazier WBC 25.7 103/ul Critically high 4.0-11.0 [facility] Comment on above: Performed By: #### C ANTONETTE ####[facility] Zvgxqhbatz7849 [place] [address]Dr. Chrissy Frazier LACTATE/LACTIC ACIDon 2021 Lactate [Moles/Vol] 2.4 mmol/L Critically high 0.4-1.9 [facility] Comment on above: Performed By: #### L ACT ####[facility] Xospnffepz9010 [place] [address]Dr. Chrissy Frazier Lactate [Moles/Vol] 3.5 mmol/L Critically high 0.4-1.9 [facility] Comment on above: Performed By: #### L ACT ####[facility] Wleywvbgpm4362 [place] [address]Dr. Chrissy Frazier LIPASEon 03-27-2022 Lipase [Catalytic activity/Vol] 43.0 U/L Critically low 73.0-393.0 [facility] Comment on above: Performed By: #### C MP, LIPA ####[facility] Tgdytegkox9705 [place] [address]Dr. Chrissy Frazier PROF 14(COMP METB)on 022 Albumin [Mass/Vol] 4.7 g/dL Normal 3.4-5.0 [facility] Comment on above: Performed By: #### C MP, LIPA ####[facility] Wxrsaiefbc9715 [place] [address]Dr. Chrissy Frazier Albumin/Globulin [Mass ratio] 1.1 {ratio} Normal [facility] Comment on above: Performed By: #### C MP, LIPA ####[facility] Vgtdqzupkg3541 [place] [address]Dr. Chrissy Frazier ALP [Catalytic activity/Vol] 69 U/L Normal 46-116 [facility] Comment on above: Performed By: #### C MP, LIPA ####[facility] Hdmjidujtu6771 [place] [address]Dr. Chrissy Frazier ALT [Catalytic activity/Vol] 47 U/L Normal 16-63 [facility] Comment on above: Performed By: #### C MP, LIPA ####[facility] Xrjsdwnzvg[address] [place], [place] [address]Dr. Chrissy Freddie Anion gap [Moles/Vol] 23.2 mmol/L Normal [facility] Comment on above: Performed By: #### C MP, LIPA ####[facility] Ygydzovvga[address] [place], [place] [address]Dr. Chrissy Freddie AST [Catalytic activity/Vol] 23 U/L Normal 15-37 [facility] Comment on above: Performed By: #### C MP, LIPA ####[facility] Nhhdstqjuv00[address] [place], [place] [address]Dr. Chrissy Freddie Bilirubin [Mass/Vol] 0.7 mg/dL Normal 0.2-1.0 [facility] Comment on above: Performed By: #### C MP, LIPA ####[facility] Qanuborzyn29[address] [place], [place] [address]Dr. Chrissy Freddie Calcium [Mass/Vol] 9.2 mg/dL Normal 8.5-10.1 [facility] Comment on above: Performed By: #### C MP, LIPA ####[facility] Gebdoarzmk5[address] [place], [place] [address]Dr. Tishrowan Freddie Chloride [Moles/Vol] 97 mmol/L Critically low 98-107 [facility] Comment on above: Performed By: #### C MP, LIPA ####[facility] Icluftgtfk00[address] [place], [place] [address]Dr. Yirowan Frazier CO2 [Moles/Vol] 18.2 mmol/L Critically low 21.0-32.0 [facility] Comment on above: Performed By: #### C MP, LIPA ####[facility] Jgrfybrglb8843 [place] [address]Dr. Chrissy Frazier Creatinine [Mass/Vol] 1.77 mg/dL Critically high 0.70-1.30 [facility] Comment on above: Performed By: #### C MP, LIPA ####[facility] Gnbyybwqnu39[address] [place], [place] [address]Dr. Chrissy Frazier EGFR-AF TUVALUAN 54 mL/min/1.73m2 Critically low >=60 [facility] Comment on above: Performed By: #### C MP, LIPA ####[facility] Ggnsdkskdk[address] [place], [place] [address]Dr. Chrissy Frazier EGFR-NON AF TUVALUAN 45 mL/min/1.73m2 Critically low >=60 [facility] Comment on above: Performed By: #### C MP, LIPA ####[facility] Gfmdmkhnry[address] [place], [place] [address]Dr. Chrissy Frazier Globulin (S) [Mass/Vol] 4.4 g/dL Normal [facility] Comment on above: Performed By: #### C MP, LIPA ####[facility] Fmqgprhhcg7[address] [place], [place] [address]Dr. Chrissy Frazier Glucose [Mass/Vol] 131 mg/dL Critically high 74-106 [facility] Comment on above: Performed By: #### C MP, LIPA ####[facility] [id number] [place], [place] [address]Dr. Chrissy Frazier Potassium [Moles/Vol] 3.4 mmol/L Critically low 3.5-5.1 [facility] Comment on above: Performed By: #### C MP, LIPA ####[facility] [address] [place], [place] [address]Dr. Chrissy Frazier Protein [Mass/Vol] 9.1 g/dL Critically high 6.4-8.2 [facility] Comment on above: Performed By: #### C MP, LIPA ####[facility] [address] [place], [place] [address]Jf. Chrissy Frazier Sodium [Moles/Vol] 135 mmol/L Critically low 136-145 [facility] Comment on above: Performed By: #### C MP, LIPA ####[facility] [address] [place], [place] [address]Jw. Chrissy Frazier Urea nitrogen [Mass/Vol] 19.0 mg/dL Critically high 7.0-18.0 [facility] Comment on above: Performed By: #### C MANA, LIPA ####[facility] [address] [place] [id number]. Chrissy Frazier Urea nitrogen/Creatinine [Mass ratio] 10.7 mg/mg Normal [facility] Comment on above: Performed By: #### C MANA, LIPA ####[facility] [address] [place] [id number]. Chrissy Frazier BMPon 11-03-2020 Anion gap [Moles/Vol] 14 mmol/L Normal 6-16 [facility] Comment on above: Performed By: #### 2 [id number], [id number], [id number] #### [facility] [address] [place] [address] Calcium [Mass/Vol] 9.0 mg/dL Normal 8.9-11.1 [facility] Comment on above: Performed By: #### 2 [id number], [id number], [id number] #### [facility] [address] [place] [address] Chloride [Moles/Vol] 104 mmol/L Normal 101-111 [facility] Comment on above: Performed By: #### 2 [id number], [id number], [id number] #### [facility] [address] [place] [address] CO2 [Moles/Vol] 21 mmol/L Normal 21-31 [facility] Comment on above: Performed By: #### 2 [id number], [id number], [id number] #### [facility] [address] [place] [address] Creatinine [Mass/Vol] 1.3 mg/dL Normal 0.5-1.3 [facility] Comment on above: Performed By: #### 2 [id number], [id number], [id number] #### [facility] [address] [place] [address] Glucose [Mass/Vol] 111 mg/dL Normal 55-199 [facility] Comment on above: Result Comment: If t his glucose result represents a fasting glucose, interpretation should refer to the following reference range: 55-99 mg/dL Performed By: #### 2 [id number], [id number], [id number] #### [facility] [address] [place] [address] Potassium [Moles/Vol] 2.9 mmol/L Low 3.5-5.3 [facility] Comment on above: Performed By: #### 2 250454, [id number], [id number] #### [facility] [address] [place] [address] Sodium [Moles/Vol] 136 mmol/L Normal 135-145 [facility] Comment on above: Performed By: #### 2 [id number], 6324842, [id number] #### [facility] [address] [place] [address] Urea nitrogen [Mass/Vol] 14 mg/dL Normal 5-21 [facility] Comment on above: Performed By: #### 2 [id number], [id number], [id number] #### [facility] [address] [place] [address] Urea nitrogen/Creatinine [Mass ratio] 11 No Units Normal 10-20 [facility] Comment on above: Performed By: #### 2 [id number], [id number], [id number] #### [facility] [address] [place] [address] Lipase Levelon 11-03-2020 Lipase [Catalytic activity/Vol] 66 unit/L High 13-58 [facility] Comment on above: Performed By: #### 2 [id number], [id number], [id number] #### [facility] [address] [place] [address] Physician Orderon 11-03-2020 Physician Order [id number] 3#1.00CD:127 Normal [facility] eGFRon 11-03-2020 GFR/1.73 sq M predicted among blacks MDRD (S/P/Bld) [Vol rate/Area] mL/min/{1.73_m2} Normal >=59 [facility] Comment on above: Order Comment: Order added by Discern Expert. Result Comment: eGFR is race adjusted. AA=. Performed By: #### 2 448221, 3533582, [id number] #### [facility] [address] [place] [address] GFR/1.73 sq M predicted among non-blacks MDRD (S/P/Bld) [Vol rate/Area] mL/min/{1.73_m2} Normal >=59 [facility] Comment on above: Order Comment: Order added by Discern Expert. Result Comment: [employer]inery [employer]ctor lindsay kidney disease could be indicated at eGFR's of less than 60 mL/min/1.73m2. Kidney failure is indicated at less than 15 mL/min/1.73m2. Performed By: #### 2 [id number], [id number], [id number] #### [facility] [address] [place] [address] Encounters Encounter Date Encounter Type Care Provider Facility Start: 05-16-2024 End: 05-16-2024 ambulatory TUNG NORTHEIM Not Available Start: 03-07-2024 End: 03-07-2024 ambulatory TUNG NORTHEIM Not Available Start: 03-30-2023 ambulatory Luis Angel Muniz cility:[facility] Start: 01-03-2023 End: 01-04-[address] MELODY MARIO . Facility: Start: 01-03-2023 End: 01-04-2023 ambulatory RAQUEL BANKS Facility:[facility] Start: 12-29-2022 End: 12-30-[address] MELODY MARIO . Facility:[facility] Start: 12-13-2022 End: 12-14-2022 ambulatory [facility] Start: 11-24-2022 End: 11-24-2022 ambulatory [facility] Start: 11-16-2022 End: 11-17-[address] [...] . Facility:[facility] Start: 04-04-2022 End: 04-04-2022 ambulatory ODELLQUE OCAMPO Facility:[facility] Start: 03-27-2022 End: 03-31-[address] MELODY MARIO . Facility: Payers Date Payer Category Payer Self-pay 1990 Unknown [id number] 01.06. [id number] 1990 Unknown [id number] 1990 Unknown [id number] 0.1.745705.3.579.2 1990 Unknown [id number] 0.1.025568.3.579.2593 1990 Unknown [id number] ..[id number] 0.1.919917.3.579.259 1990 Unknown [id number] 2.16.84 0.1.764034.3.579.2.593 1990 Unknown [id number] 2.16.84 0.1.068885.3.579.2.593 1990 Unknown [id number] 2.16.84 0.1.488417.3.579.2.593 1990 Unknown [id number] 2.16.84 0.1.757547.3.579.2.593 1990 Unknown [id number] 2.16.84 0.1.934080.3.579.2.593 1990 Unknown [id number] 2.16.84 0.1.277849.3.579.2.593 1990 Unknown [id number] 2.16.84 0.1.018087.3.579.2.593 1990 Unknown [id number] 2.16.84 0.1.370847.3.579.2.593 1990 Unknown [id number] 2.16.84 0.1.360950.3.579.2.1259 1990 Unknown [id number] 2.16.84 0.1.634945.3.579.2.1259 1959 Private Health Insurance [id number] Unknown [id number] 2.16.8 40.1.101236.3.579.2.531 Progress note 11-24-2022 Note Date & Type [...] report that his father had a fatal [place] at the age of 54. Stress test [...] modification -Plan (more content not included)... [facility] Progress note 11-24-2022 Note Date & Type [...] other systems reviewed and are negative. [facility] Summary Purpose Family History No Family History [...] section and content) DATE CREATED AUTHOR 11/04/2020 [facility] DATE CREATED AUTHOR AUTHOR'S ORGANIZ ATION 01/08/2023 [facility] DATE CREATED AUTHOR AUTHOR'S ORGANIZ ATION 02/07/2023 [facility] DATE CREATED AUTHOR AUTHOR'S ORGANIZ ATION 04/01/2023 [facility] DATE CREATED AUTHOR AUTHOR'S ORGANIZ ATION 05/17/2024 [facility] [place] FOR RECORDS PERTAINING TO PATIENTS WHO ARE [...] BE BASED ON THE PRIMARY CLINICAL RECORDS. [employer] provides no warranty or guarantee of the accuracy or completeness of information in this document.
== END 2024-05-22 11:15 | disposition home or self-care (01) ==
LOC: EC 11:14
PROVIDERS: PCP Family Medicine; Visit Provider Podiatrist Foot & Ankle Surgery
DX: M79.671 Pain in right foot (principal); Z98.890 Other specified postprocedural states
CPT/HCPCS: 73630

== ENCOUNTER 2024-06-12 10:54 | Outpatient (OUT) | payer OTHER, SELFPAY ==
--- NOTE | 2024-06-12 | XR_ITS ---
[address] [address] Patient Name: PAULINA CHARLES MRN: [id number] date: 1990 Sex: M Assigned Patient Location: Current Patient Location: Accession/Order Number: [id number] Exam Date: 06/12/2024 10:55 Report Date: 06/13/2024 07:16 At the request of: SHALINI IVAN Procedure: XR foot RT min 3V PROCEDURE: XR foot RT min 3V COMPARISON: 05/22/2024 HISTORY: RIGHT FOOT PAIN FINDINGS: BONES:No acute fracture or dislocation. Stable fusion of the medial cuneiform and navicular with a surgical staple 2 screws. Degenerative changes with marginal osteophyte formation. Permeative pattern of the bones suggests osteopenia, slightly progressed SOFT TISSUES:Negative. No visible soft tissue swelling. EFFUSION:None visible. OTHER: Negative. XR/XR foot RT min 3V IMPRESSION: Stable medial midfoot fusion with no mechanical failure. Osteopenia Electronically authenticated by: RAPHAEL PRIEST Date: 06/13/2024 07:16
--- OUTSIDE RECORDS SUMMARY | 2024-06-12 11:13 | XMS_ITS | CCD ---
Author Organization [facility] Care Team Providers Care Ore Buyer Name Role Phone RAQUEL BANKS Referring Unavailable [...] ., DR OLIVER Primary Care Unavailable ALGHOCASSY, DEBBIEAMAD Attending Unavailable DARREN, DEBBIEAMAAmelie Admitting Unavailable HOTree [...] Hospital Repository (1 source) Clarithromycin Drug Allergy [facility] Repository (1 source) Sulfamethoxazole / Trimethoprim Drug Allergy 05-27-20 17 [facility] Repository (1 source) Sulfamethoxazole Drug Allergy 03-20-20 [facility] Repository (1 source) Trimethoprim Drug Allergy 03-20-20 [facility] Repository Problems Active Problems Problem Classification [...] 11-16-2022 Episodic Other aftercare (1 source) Other fci (current) drug therapy; Translations: [OTH EVENTS SPECIALIST CURRENT DRUG THERAPY] Onset: 02-07-2023 Episodic Other [...] IGG ABS 0.09 Index Value Normal 0.00-0.79 [facility] Comment on above: Result Comment: Nega tive <0.80 Equivocal 0.80 - 0.89 Positive >0.89 Performed By: #### H PYLLC ####[facility] [address] [place] [address]Dr. Chrsisy Frazier AMYLASEon 01-04-2023 Amylase [Catalytic activity/Vol] 34 U/L Normal 25-115 [facility] Comment on above: Performed By: #### A MY ####[facility] Uqdyfeabwk[address] [place], [place] [address]Dr. Chrissy Freddie CBC AUTO DIFFon 01-04-2023 BASO # 0.0 103/ul Normal 0.0-0.1 [facility] Comment on above: Performed By: #### C BC ####[facility] Ufrrgyytwc[address] [place], [place] [address]Dr. Chrissy Frazier Basophils/100 WBC (Bld) 0.1 % Critically low 0.2-2.0 [facility] Comment on above: Performed By: #### C BC ####[facility] Ddujdwdejc[address] [place], [place] [address]Dr. Tishrowan Frazier EO # 0.0 103/ul Normal 0.0-0.7 [facility] Comment on above: Performed By: #### C BC ####[facility] Tmlayljswe[address] [place], [place] [address]Dr. Chrissy Frazier Eosinophils/100 WBC (Bld) 0.1 % Critically low 0.9-7.0 [facility] Comment on above: Performed By: #### C BC ####[facility] Xezsgrpsmf[address] [place], [place] [address]DrNancy Frazier Erythrocyte distribution width (RBC) [Ratio] 14.0 % Normal 11.0-15.0 [facility] Comment on above: Performed By: #### C BC ####[facility] Osljicycib[address] [place], [place] [address]Dr. Chrissy Farzier Hematocrit (Bld) [Volume fraction] 40.4 % Critically low 42.0-54.0 [facility] Comment on above: Performed By: #### C BC ####[facility] [address]wj[address] [place] [address]Dr. Chrissy Frazier Hemoglobin (Bld) [Mass/Vol] 13.8 g/dL Critically low 14.0-18.0 [facility] Comment on above: Performed By: #### C BC ####[facility] Fdfqytziho[address] [place] [address]Dr. Chrissy Freddie IG # 0.05 10e3/ul Critically high 0.00-0.03 [facility] Comment on above: Performed By: #### C BC ####[facility] Hxmqnwvybx[address] [place] [address]Dr. Tishrowan Frazier IG % 0.3 % Normal 0.0-0.5 [facility] Comment on above: Performed By: #### C BC ####[facility] Grnndquwhy[address] [place], [place] [address]Dr. Chrissy Frazier LYMPH # 1.7 103/ul Normal 1.2-3.8 [facility] Comment on above: Performed By: #### C BC ####[facility] Uop[address]xzxqyu[address] [place] [address]Dr. Chrissy Freddie Lymphocytes/100 WBC (Bld) 11.9 % Critically low 20.5-60.0 [facility] Comment on above: Performed By: #### C BC ####[facility] Wcb[address]maarug[address] [place] [address]Dr. Chrissy Frazier MANUAL DIFF REQ NO Normal [facility] Comment on above: Performed By: #### C BC ####[facility] Yuslacpira[address] [place] [id number]. Chrissy Freddie MCH (RBC) [Entitic mass] 29.3 pg Normal 25.9-34.0 [facility] Comment on above: Performed By: #### C BC ####[facility] Ydqcqxrjmx[address] [place] [address]Dr. Tishrowan Frazier MCHC (RBC) [Mass/Vol] 34.2 g/dL Normal 29.9-35.2 [facility] Comment on above: Performed By: #### C BC ####[facility] Xerzaneiro[address] [place] [address]Dr. Chrissy Frazier MCV (RBC) [Entitic vol] 85.8 fL Normal 80.0-94.0 [facility] Comment on above: Performed By: #### C BC ####[facility] Giqvoedxvy[address] [place] [address]Dr. Chrissy Freddie MONO # 0.6 103/ul Normal 0.3-0.8 [facility] Comment on above: Performed By: #### C BC ####[facility] Gcxnomkfuf[address] [place] [address]Dr. Chrissy Freddie Monocytes/100 WBC (Bld) 4.2 % Normal 1.7-12.0 [facility] Comment on above: Performed By: #### C BC ####[facility] Tfinpmlppj[address] [place], [place] [address]Dr. Chrissy Frazier NEUT # 12.0 103/ul Critically high 1.4-6.5 [facility] Comment on above: Performed By: #### C BC ####[facility] Ecoaqrpjqa[address] [place], [place] [address]Dr. Tishrowan Frazier Neutrophils/100 WBC (Bld) 83.4 % Critically high 43.0-75.0 [facility] Comment on above: Performed By: #### C BC ####[facility] Leknupotlr55[address] [place], [place] [address]Dr. Chrissy Freddie Platelet mean volume (Bld) [Entitic vol] 10.4 fL Normal 9.5-13.5 [facility] Comment on above: Performed By: #### C BC ####[facility] Pqjolbpb[address] [place], [place] [address]Dr. Chrissy Frazier PLT 313 103/ul Normal 150-450 [facility] Comment on above: Performed By: #### C BC ####[facility] L[address]ou[address]wlny[address] [place] [address]Dr. Chrissy Frazier RBC 4.71 106/ul Normal 4.70-6.10 [facility] Comment on above: Performed By: #### C BC ####[facility] J[address]oyehpgv76[address] [place] [address]Dr. Chrissy Frazier WBC 14.4 103/ul Critically high 4.0-11.0 [facility] Comment on above: Performed By: #### C BC ####[facility] Pnqsnivdic[address] [place] [address]Dr. Chrissy Frazier CULTURE URINEon 01-04-2023 CULTURE URINE Culture Observations: NO GROWTH. Normal [facility] Comment on above: Performed By: #### U RCX ####[facility] Xrubudnjph[address] [place] [address]Dr. Chrissy Frazier DRUG SCREEN RAPID (URINE)on 01-04-2023 AMP Negative Normal NEGATIVE [facility] Comment on above: Performed By: #### D REYES, UAMIC ####[facility] Ibtwocbikr[address] [place] [address]Dr. Chrissy Frazier BAR Negative Normal NEGATIVE [facility] Comment on above: Performed By: #### D REYES, UAMIC ####[facility] Uccjyiszio[address] [place] [address]Dr. Chrissy Frazier BUP Negative Normal NEGATIVE [facility] Comment on above: Performed By: #### D CHAYAD, UAMIC ####[facility] Vqinpwkwcs[address] [place] [address]Dr. Chrissy Frazier BZO Positive Abnormal NEGATIVE [facility] Comment on above: Performed By: #### D REYES, UAMIC ####[facility] Xfxyiggqmm15[address] [place] [address]Dr. Chrissy Frazier LAUREN Negative Normal NEGATIVE [facility] Comment on above: Performed By: #### D REYES, UAMIC ####[facility] Cyninehmwg[address] [place] [address]Dr. Chrissy Frazier CUT-OFFS SEE BELOW Normal [facility] Comment on above: Result Comment: AMP [...] ng/mL Performed By: #### Amelie CHAMBERS, UAMIC ####[facility] Mqcldeclph[address] [place], [place] [address]Dr. [facility] DRUG CUT HEADER DRUG CLASS TEST SYSTEM CUT-OFF CONCENTRATIONS ARE FOLLOWS: Normal [facility] Comment on above: Performed By: #### Amelie CHAMBERS UAMIC ####[facility] Abyxhbjfgz40[address] [place], [place] [address]Dr. Chrissy [facility] mAMP Negative Normal NEGATIVE [facility] Comment on above: Performed By: #### Amelie CHAMBERS UAMIC ####[facility] Yxndgkokcv07[address] [place], [place] [address]Dr. [facility] MTD Negative Normal NEGATIVE [facility] Comment on above: Performed By: #### Amelie CHAMBERS, UAMIC ####[facility] Mdquytgcbt[address] [place], [place] [address]Dr. [facility] OPI Negative Normal NEGATIVE [facility] Comment on above: Performed By: #### Amelie CHAMBERS, UAMIC ####[facility] Icduksbgdt0[address] [place], [place] [address]Dr. [facility] OXY Negative Normal NEGATIVE [facility] Comment on above: Performed By: #### Amelie CHAMBERS, UAMIC ####[facility] Laivzsqvky3255[address] [place], [place] [address]Dr. [facility] PCP Negative Normal NEGATIVE [facility] Comment on above: Performed By: #### Amelie CHAMBERS, UAMIC ####[facility] Ibdyeqcjjv[address] [place], [place] [address]Dr. [facility] PPX Negative Normal NEGATIVE [facility] Comment on above: Performed By: #### D REYES UAMIC ####[facility] Rkfhrkrhkf[address] [place] [address]Dr. Chrissy Frazier TCA Positive Abnormal NEGATIVE [facility] Comment on above: Performed By: #### D REYES UAMIC ####[facility] Pyygbhetfc[address] [place] [address]Dr. Chrissy Frazier THC Positive Abnormal NEGATIVE [facility] Comment on above: Performed By: #### D REYES UAMIC ####[facility] Rerwindyqu[address] [place] [address]Dr. Chrissy Frazier LIPASEon 01-04-2023 Lipase [Catalytic activity/Vol] 57.0 U/L Critically low 73.0-393.0 [facility] Comment on above: Performed By: #### L IPA ####[facility] Pfeonvviwg[address] [place], [place] [address]Dr. Chrissy Frazier PROF 14(COMP METB)on 023 Albumin [Mass/Vol] 3.6 g/dL Normal 3.4-5.0 [facility] Comment on above: Performed By: #### C MP ####[facility] Yceewjpcjy[address] [place], [place] [address]Dr. Chrissy Frazier Albumin/Globulin [Mass ratio] 1.0 {ratio} Normal [facility] Comment on above: Performed By: #### C MP ####[facility] Iwjrheppuy32[address] [place], [place] [address]Dr. Chrissy Frazier ALP [Catalytic activity/Vol] 67 U/L Normal 46-116 [facility] Comment on above: Performed By: #### C MP ####[facility] Ezujpmxawc24[address] [place], [place] [address]Dr. Chrissy Frazier ALT [Catalytic activity/Vol] 26 U/L Normal 16-63 [facility] Comment on above: Performed By: #### C MP ####[facility] Tndmisafgk[address] [place] [address]Dr. Chrissy Frazier Anion gap [Moles/Vol] 16.3 mmol/L Normal [facility] Comment on above: Performed By: #### C MP ####[facility] Qczyeyortz264[address] [place] [address]Dr. Chrissy Frazier AST [Catalytic activity/Vol] 17 U/L Normal 15-37 [facility] Comment on above: Performed By: #### C MP ####[facility] Lsvsafyvrv08[address] [place] [address]Dr. Chrissy Frazier Bilirubin [Mass/Vol] 0.4 mg/dL Normal 0.2-1.0 [facility] Comment on above: Performed By: #### C MP ####[facility] Qjyfxxjann18[address] [place], [place] [address]Dr. Chrissy Frazier Calcium [Mass/Vol] 8.7 mg/dL Normal 8.5-10.1 [facility] Comment on above: Performed By: #### C MP ####[facility] Kyrdyosazk[address] [place], [place] [address]Dr. Chrissy Frazier Chloride [Moles/Vol] 106 mmol/L Normal 98-107 [facility] Comment on above: Performed By: #### C MP ####[facility] Klacqzkbhk8[address] [place], [place] [address]Dr. Chrissy Frazier CO2 [Moles/Vol] 22.6 mmol/L Normal 21.0-32.0 [facility] Comment on above: Performed By: #### C MP ####[facility] Hxtwsnamxu86[address] [place], [place] [address]Dr. Chrissy Frazier Creatinine [Mass/Vol] 0.99 mg/dL Normal 0.70-1.30 [facility] Comment on above: Performed By: #### C MP ####[facility] H[address]fxawbwnt[address] [place] [address]Dr. Chrissy Frazier EGFR-AF GUINEAN >60 Normal >=60 [facility] Comment on above: Performed By: #### C MP ####[facility] Pejfurgnhl[address] [place] [address]Dr. Chrissy Frazier EGFR-NON AF GUINEAN >60 Normal >=60 [facility] Comment on above: Performed By: #### C MP ####[facility] Endndiorgv68[address] [place] [address]Dr. Chrissy Frazier Globulin (S) [Mass/Vol] 3.6 g/dL Normal [facility] Comment on above: Performed By: #### C MP ####[facility] Wtndqooidw[address] [place] [address]Dr. Chrissy Frazier Glucose [Mass/Vol] 138 mg/dL Critically high 74-106 [facility] Comment on above: Performed By: #### C MP ####[facility] Ikxbvwixdr17[address] [place] [address]Dr. Chrissy Frazier Potassium [Moles/Vol] 3.9 mmol/L Normal 3.5-5.1 [facility] Comment on above: Performed By: #### C MP ####[facility] Xoshtijxhq[address] [place], [place] [address]Dr. Chrissy Frazier Protein [Mass/Vol] 7.2 g/dL Normal 6.4-8.2 [facility] Comment on above: Performed By: #### C MP ####[facility] Glzzmtsvkx[address] [place], [place] [address]Dr. Chrissy Frazier Sodium [Moles/Vol] 141 mmol/L Normal 136-145 [facility] Comment on above: Performed By: #### C MP ####[facility] Vraaeaalwn[address] [place], [place] [address]Dr. Chrissy Frazier Urea nitrogen [Mass/Vol] 10.0 mg/dL Normal 7.0-18.0 [facility] Comment on above: Performed By: #### C MP ####[facility] Ozfnhwzqil47[address] [place], [place] [address]Dr. Chrissy Frazier Urea nitrogen/Creatinine [Mass ratio] 10.1 mg/mg Normal [facility] Comment on above: Performed By: #### C MP ####[facility] Qxeptyjhmc[address] [place], [place] [address]Dr. Chrissy Frazier UA RANDOM W/MICROSCOPICon BACTERIA TRACE Abnormal NONE SEEN [facility] Comment on above: Performed By: #### D REYES, UAMIC ####[facility] Rxcgqmetcj[address] [place] [address]Dr. Chrissy Frazier Bilirubin Ql (U) Negative Normal NEGATIVE [facility] Comment on above: Performed By: #### Amelie CHAMBERS, UAMIC ####[facility] Lctxkxahhu88[address] [place], [place] [address]Dr. Chrissy Frazier CAST NONE SEEN Normal NONE SEEN [facility] Comment on above: Performed By: #### Amelie CHAMBERS, UAMIC ####[facility] Dieobvsgay[address] [place], [place] [address]Dr. Chrissy Frazier Clarity (U) CLEAR Normal CLEAR [facility] Comment on above: Performed By: #### Amelie CHAMBERS, UAMIC ####[facility] Bwrlybdoyp96[address] [place], [place] [address]Dr. Chrissy Frazier Color (U) YELLOW Normal YELLOW [facility] Comment on above: Performed By: #### Amelie CHAMBERS, UAMIC ####[facility] Jlrulirzal58[address] [place], [place] [address]Dr. Chrissy Frazier Crystals LM Nom (Urine sed) NONE SEEN Normal NONE SEEN [facility] Comment on above: Performed By: #### Amelie CHAMBERS, UAMIC ####[facility] Kfqrhnbdso[address] [place], [place] [address]Dr. Chrissy Frazier Epithelial cells LM Ql (Urine sed) NONE SEEN Normal NONE SEEN /RARE [facility] Comment on above: Performed By: #### Amelie CHAMBERS, UAMIC ####[facility] Woglluhzav[address] [place], [place] [address]Dr. Chrissy Frazier Glucose Ql (U) Negative Normal NEGATIVE [facility] Comment on above: Performed By: #### D REYES, UAMIC ####[facility] Xvecgsohvu[address] [place], [place] [address]Dr. Chrissy Frazier Hemoglobin Ql (U) Negative Normal NEGATIVE [facility] Comment on above: Performed By: #### Amelie CHAMBERS, UAMIC ####[facility] Yntiyontin[address] [place], [place] [address]Dr. Chrissy Frazier Ketones Ql (U) 15 mg/dl Abnormal NEGATIVE [facility] Comment on above: Performed By: #### Amelie CHAMBERS UAMIC ####[facility] Ekdipgcmsc74[address] [place] [address]Dr. Chrissy Frazier LEUKOCYTES Negative Normal NEGATIVE [facility] Comment on above: Performed By: #### Amelie CHAMBERS UAMIC ####[facility] Hntbiosrbj[address] [place] [address]Dr. Chrissy Frazier MUCOUS NONE SEEN Normal NONE SEEN [facility] Comment on above: Performed By: #### Amelie CHAMBERS UAMIC ####[facility] Qcemgrylqk8847 [place] [address]Dr. Chrissy Frazier Nitrite Ql (U) Negative Normal NEGATIVE [facility] Comment on above: Performed By: #### Amelie CHAMBERS UAMIC ####[facility] Wgafwewzxv19[address] [place] [address]Dr. Chrissy Frazier pH (U) 6.5 [pH] Normal 5-9 [facility] Comment on above: Performed By: #### Amelie CHAMBERS UAMIC ####[facility] Avlahhepqc9[address] [place], [place] [address]Dr. Chrissy Frazier RBC NONE SEEN Abnormal 0-2 [facility] Comment on above: Performed By: #### Amelie CHAMBERS UAMIC ####[facility] Tmlkcewwat75[address] [place], [place] [address]Dr. Chrissy Frazier SPEC GRAVITY 1.020 Normal 1.005-<=1.025 [facility] Comment on above: Performed By: #### Amelie CHAMBERS UAMIC ####[facility] Yefcufkspt[address] [place], [place] [address]Dr. Chrissy Frazier UA PROTEIN Negative Normal NEGATIVE/ TRACE [facility] Comment on above: Performed By: #### Amelie CHAMBERS UAMIC ####[facility] Oxcgawawca[address] [place], [place] [address]Dr. Chrissy Frazier Urobilinogen Qn (U) 0.2 {Estrellita'U}/dL Normal 0.2 - 1. 0 [facility] Comment on above: Performed By: #### Amelie CHAMBERS UAMIC ####[facility] Qypjvtbdoe38[address] [place] [address]Dr. Chrissy Frazier WBC NONE SEEN Normal NONE SEEN [facility] Comment on above: Performed By: #### D REYES UAMIC ####[facility] Ohxkuzqqqt40[address] [place] [address]Dr. Chrissy Frazier AMMONIAon 01-03-2023 Ammonia (P) [Moles/Vol] 17 umol/L Normal 11-32 [facility] Comment on above: Performed By: #### A MM ####[facility] Ifkqxavwde3[address] [place] [address]Dr. Chrissy Frazier AMYLASEon 01-03-2023 Amylase [Catalytic activity/Vol] 38 U/L Normal 25-115 [facility] Comment on above: Performed By: #### L IPA, TERRENCE, CMP, MG ####[facility] Empoqxoofa[address] [place] [address]Dr. Chrissy Frazier CBC AUTO DIFFon 01-03-2023 BASO # 0.1 103/ul Normal 0.0-0.1 [facility] Comment on above: Performed By: #### C BC ####[facility] Rjruttjsyy73[address] [place] [address]Dr. Chrissy Frazier Basophils/100 WBC (Bld) 0.4 % Normal 0.2-2.0 [facility] Comment on above: Performed By: #### C BC ####[facility] Xgufvcosun22[address] [place] [address]Dr. Chrissy Frazier EO # 0.1 103/ul Normal 0.0-0.7 [facility] Comment on above: Performed By: #### C BC ####[facility] Lwierzguns[address] [place] [address]Dr. Chrissy Frazier Eosinophils/100 WBC (Bld) 0.3 % Critically low 0.9-7.0 [facility] Comment on above: Performed By: #### C BC ####[facility] Uuntgkdjqk77[address] [place] [address]Dr. Chrissy Frazier Erythrocyte distribution width (RBC) [Ratio] 13.7 % Normal 11.0-15.0 [facility] Comment on above: Performed By: #### C BC ####[facility] Ogxamrnlij[address] [place] [address]Dr. Tishrowan Freddie Hematocrit (Bld) [Volume fraction] 46.1 % Normal 42.0-54.0 [facility] Comment on above: Performed By: #### C BC ####[facility] Bsclwzhgfm64[address] [place] [address]Dr. Chrissy Frazier Hemoglobin (Bld) [Mass/Vol] 15.4 g/dL Normal 14.0-18.0 [facility] Comment on above: Performed By: #### C BC ####[facility] Eocquokwdx[address] [place], [place] [address]Dr. Chrissy Frazier IG # 0.11 10e3/ul Critically high 0.00-0.03 [facility] Comment on above: Performed By: #### C BC ####[facility] Grsnzbkfpc99[address] [place], [place] [address]Dr. Chrissy Frazier IG % 0.6 % Critically high 0.0-0.5 [facility] Comment on above: Performed By: #### C BC ####[facility] Qseqfduswi028[address] [place], [place] [address]Dr. Chrissy Frazier LYMPH # 2.5 103/ul Normal 1.2-3.8 [facility] Comment on above: Performed By: #### C BC ####[facility] Halliuqhsc[address] [place], [place] [address]DrNancy Frazier Lymphocytes/100 WBC (Bld) 13.9 % Critically low 20.5-60.0 [facility] Comment on above: Performed By: #### C BC ####[facility] Aucwgiodet55[address] [place], [place] [address]DrNancy Frazier MANUAL DIFF REQ NO Normal [facility] Comment on above: Performed By: #### C BC ####[facility] Xzjgjjrfvu24[address] [place] [address]Dr. Chrissy Frazier MCH (RBC) [Entitic mass] 28.6 pg Normal 25.9-34.0 [facility] Comment on above: Performed By: #### C BC ####[facility] Zvvrwyuqri79[address] [place] [address]Dr. Chrissy Frazier MCHC (RBC) [Mass/Vol] 33.4 g/dL Normal 29.9-35.2 [facility] Comment on above: Performed By: #### C BC ####[facility] Tqwgojxseq69[address] [place] [address]Dr. Chrissy Frazier MCV (RBC) [Entitic vol] 85.7 fL Normal 80.0-94.0 [facility] Comment on above: Performed By: #### C BC ####[facility] Ihnjtonfdr[address] [place], [place] [address]DrNancy Frazier MONO # 0.7 103/ul Normal 0.3-0.8 [facility] Comment on above: Performed By: #### C BC ####[facility] Aqraeggbri[address] [place], [place] [address]Dr. Chrissy Frazier Monocytes/100 WBC (Bld) 4.0 % Normal 1.7-12.0 [facility] Comment on above: Performed By: #### C BC ####[facility] Pyyfigwslw56[address] [place], [place] [address]DrNancy Frazier NEUT # 14.3 103/ul Critically high 1.4-6.5 [facility] Comment on above: Performed By: #### C BC ####[facility] Tuprsqewyk[address] [place], [place] [address]Dr. Chrissy Frazier Neutrophils/100 WBC (Bld) 80.8 % Critically high 43.0-75.0 [facility] Comment on above: Performed By: #### C BC ####[facility] Uvjqdeuset[address] [place], [place] [address]DrNancy Frazier Platelet mean volume (Bld) [Entitic vol] 10.4 fL Normal 9.5-13.5 [facility] Comment on above: Performed By: #### C BC ####[facility] Kuubjauelf[address] [place], [place] [address]Dr. Chrissy Frazier PLT 437 103/ul Normal 150-450 [facility] Comment on above: Performed By: #### C BC ####[facility] Nfaummaywb12[address] [place] [address]Dr. Chrissy Frazier RBC 5.38 106/ul Normal 4.70-6.10 [facility] Comment on above: Performed By: #### C BC ####[facility] Vrftuwmkol7[address] [place] [address]Dr. Chrissy Frazier WBC 17.7 103/ul Critically high 4.0-11.0 [facility] Comment on above: Performed By: #### C BC ####[facility] Sndyivcenv[address] [place] [address]Dr. Chrissy Frazier CULTURE BLOODon 01-03-2023 Microscopic examination of blood, culture Culture Observations: NO GROWTH AT 5 DAYS. Normal [facility] Comment on above: Performed By: #### B LDCX1 ####[facility] Hugsficukz[address] [place], [place] [address]Dr. Chrissy Frazier Performed By: #### B LDCX2 ####[facility] Yptcyeqwin9[address] [place] [address]Dr. Chrissy Frazier ECHOCARDIO M/2D COMPLETEon 0 01-03-2023 ECHOCARDIO M/2D COMPLETE Normal [facility] LACTATE/LACTIC ACIDon 2022 Lactate [Moles/Vol] 2.7 mmol/L Critically high 0.4-1.9 [facility] Comment on above: Performed By: #### L ACT ####[facility] Jndpgtnkvt[address] [place] [address]Dr. Chrissy Frazier Lactate [Moles/Vol] 6.3 mmol/L Critically high 0.4-1.9 [facility] Comment on above: Performed By: #### L ACT ####[facility] Ilodxqsprf64[address] [place] [address]Dr. Chrissy Frazier LIPASEon 01-03-2023 Lipase [Catalytic activity/Vol] 74.0 U/L Normal 73.0-393.0 [facility] Comment on above: Performed By: #### L IPA, TERRENCE, CMP, MG ####[facility] [address]wiupwspw[address] [place] [address]Dr. Chrissy Frazier MAGNESIUMon 01-03-2023 Magnesium [Mass/Vol] 1.6 mg/dL Critically low 1.8-2.4 [facility] Comment on above: Performed By: #### L IPA, TERRENCE, CMP, MG ####[facility] Fwgwuflmpc[address] [place] [address]Dr. Chrissy Frazier PROF 14(COMP METB)on 023 Albumin [Mass/Vol] 4.3 g/dL Normal 3.4-5.0 [facility] Comment on above: Performed By: #### L IPA, TERRENCE, CMP, MG ####[facility] Obgtxfgazb[address] [place] [address]Dr. Chrissy Frazier Albumin/Globulin [Mass ratio] 1.1 {ratio} Normal [facility] Comment on above: Performed By: #### L IPA, TERRENCE, CMP, MG ####[facility] Gvyfpyrplq[address] [place] [address]Dr. Chrissy Frazier ALP [Catalytic activity/Vol] 87 U/L Normal 46-116 [facility] Comment on above: Performed By: #### L IPA, TERRENCE, CMP, MG ####[facility] Eddfbsuhzk[address] [place] [address]Dr. Chrissy Frazier ALT [Catalytic activity/Vol] 32 U/L Normal 16-63 [facility] Comment on above: Performed By: #### L IPA, TERRENCE, CMP, MG ####[facility] Fvgjkykqnu[address] [place] [address]Dr. Chrissy Frazier Anion gap [Moles/Vol] 24.0 mmol/L Normal [facility] Comment on above: Performed By: #### L IPA, TERRENCE, CMP, MG ####[facility] Pjecnmnchr[address] [place] [address]Dr. Chrissy Frazier AST [Catalytic activity/Vol] 22 U/L Normal 15-37 [facility] Comment on above: Performed By: #### L IPA, TERRENCE, CMP, MG ####[facility] Uhablohrwk[address] [place] [address]Dr. Chrissy Frazier Bilirubin [Mass/Vol] 0.6 mg/dL Normal 0.2-1.0 [facility] Comment on above: Performed By: #### L IPA, TERRENCE, CMP, MG ####[facility] Pebesyckrw[address] [place] [address]Dr. Chrissy Frazier Calcium [Mass/Vol] 9.6 mg/dL Normal 8.5-10.1 [facility] Comment on above: Performed By: #### L IPA, TERRENCE, CMP, MG ####[facility] Qlswzxtttz[address] [place] [address]Dr. Chrissy Frazier Chloride [Moles/Vol] 103 mmol/L Normal 98-107 [facility] Comment on above: Performed By: #### L IPA, TERRENCE, CMP, MG ####[facility] [address]fbyp[address] [place], [place] [address]Dr. Chrissy Frazier CO2 [Moles/Vol] 16.7 mmol/L Critically low 21.0-32.0 [facility] Comment on above: Performed By: #### L IPA, TERRENCE, CMP, MG ####[facility] Cfbujzcavq[address] [place], [place] [address]Dr. Chrissy Frazier Creatinine [Mass/Vol] 1.42 mg/dL Critically high 0.70-1.30 [facility] Comment on above: Performed By: #### L IPA, TERRENCE, CMP, MG ####[facility] Bleoourbgy[address] [place] [address]Dr. Chrissy Frazier EGFR-AF GUINEAN >60 Normal >=60 [facility] Comment on above: Performed By: #### L IPA, TERRENCE, CMP, MG ####[facility] Lqxhyjpvgu[address] [place], [place] [address]Dr. Chrissy Frazier EGFR-NON AF GUINEAN 58 mL/min/1.73m2 Critically low >=60 [facility] Comment on above: Performed By: #### L IPA, TERRENCE, CMP, MG ####[facility] Oksjyvojsz[address] [place] [address]Dr. Chrissy Frazier Globulin (S) [Mass/Vol] 4.0 g/dL Normal [facility] Comment on above: Performed By: #### L IPA, TERRENCE, CMP, MG ####[facility] Lzbuluzngf8[address] [place] [address]Dr. Chrissy Frazier Glucose [Mass/Vol] 149 mg/dL Critically high 74-106 [facility] Comment on above: Performed By: #### L IPA, TERRENCE, CMP, MG ####[facility] Gsxeycgdgl27[address] [place] [address]Dr. Chrissy Frazier Potassium [Moles/Vol] 3.7 mmol/L Normal 3.5-5.1 [facility] Comment on above: Performed By: #### L IPA, TERRENCE, CMP, MG ####[facility] Aeuqmxgqor3[address] [place] [address]Dr. Chrissy Frazier Protein [Mass/Vol] 8.3 g/dL Critically high 6.4-8.2 [facility] Comment on above: Performed By: #### L IPA, TERRENCE, CMP, MG ####[facility] Brjkhngkup[address] [place] [address]Dr. Chrissy Frazier Sodium [Moles/Vol] 140 mmol/L Normal 136-145 [facility] Comment on above: Performed By: #### L IPA, TERRENCE, CMP, MG ####[facility] Vojuuzpeth[address] [place] [address]Dr. Chrissy Frazier Urea nitrogen [Mass/Vol] 16.0 mg/dL Normal 7.0-18.0 [facility] Comment on above: Performed By: #### L IPA, TERRENCE, CMP, MG ####[facility] Kyhkqzbwol4[address] [place] [address]Dr. Chrissy Frazier Urea nitrogen/Creatinine [Mass ratio] 11.3 mg/mg Normal [facility] Comment on above: Performed By: #### L IPA, TERRENCE, CMP, MG ####[facility] Hkhejpddnz20[address] [place] [address]Dr. Chrissy Frazier SED RATE [facility] 2022 SED RATE 37 mm/hr Critically high <=15 [facility] Comment on above: Performed By: #### S EDR ####[facility] Silgoxkgnr[address] [place], [place] [address]Ji. Chrissy Frazier XR ABD FLAT UP_PA Enoch 01-03 XR ABD FLAT UP_PA CH Normal [facility] CT HEART CORONARY ANGIOGRAMo n 12-13-2022 [facility] Follow-up visit [id number] Paulina Montero 1990 M Date Provider Department Center 11/24/2022 3848-RAQUEL BANKS MANE [facility] Family History Problem Relation Age of Onset Coronary artery disease Father Heart attack Father 54 Family Status - Relation Status Age at Father Level of Service:[address] [place] OFFICE/OUTPATIENT NEW MODERATE MDM 45-59 MINUTES Reason for Visit and Comments: abnormal stress test [Other] Normal [facility] CARDIAC STRESS TESTon 2021 CARDIAC STRESS TEST Normal [facility] AMYLASEon 10-24-2022 Amylase [Catalytic activity/Vol] 26 U/L Normal 25-115 [facility] Comment on above: Performed By: #### C MP, LIPA, TERRENCE ####[facility] Wxyrlhicdl27[address] [place], [place] [address]LuNancy Chrissy Frazier CBC AUTO DIFFon 10-24-2022 BASO # 0.0 103/ul Normal 0.0-0.1 [facility] Comment on above: Performed By: #### C BC ####[facility] J[address]clzeojf[address] [place] [address]Dr. Chrissy Frazier Basophils/100 WBC (Bld) 0.2 % Normal 0.2-2.0 [facility] Comment on above: Performed By: #### C BC ####[facility] Mjjnfoixqa26[address] [place] [address]Dr. Chrissy Frazier EO # 0.1 103/ul Normal 0.0-0.7 [facility] Comment on above: Performed By: #### C BC ####[facility] [address] [place], [place] [address]Dr. Chrissy Frazier Eosinophils/100 WBC (Bld) 0.4 % Critically low 0.9-7.0 [facility] Comment on above: Performed By: #### C BC ####[facility] [address]zovtkpsmz[address] [place], [place] [address]Dr. Chrissy Frazier Erythrocyte distribution width (RBC) [Ratio] 14.6 % Normal 11.0-15.0 [facility] Comment on above: Performed By: #### C BC ####[facility] Qubbibezrk[address] [place] [address]Dr. Chrissy Frazier Hematocrit (Bld) [Volume fraction] 39.4 % Critically low 42.0-54.0 [facility] Comment on above: Performed By: #### C BC ####[facility] Sxovtsigfj90[address] [place] [address]Dr. Chrissy Frazier Hemoglobin (Bld) [Mass/Vol] 13.2 g/dL Critically low 14.0-18.0 [facility] Comment on above: Performed By: #### C BC ####[facility] Sgexplnmcp33[address] [place] [address]Dr. Chrissy Frazier IG # 0.07 10e3/ul Critically high 0.00-0.03 [facility] Comment on above: Performed By: #### C BC ####[facility] V[address] [place], [place] [address]Dr. Chrissy Frazier IG % 0.5 % Normal 0.0-0.5 [facility] Comment on above: Performed By: #### C BC ####[facility] Bnrqmjmbge29[address] [place] [address]Dr. Chrissy Frazier LYMPH # 3.7 103/ul Normal 1.2-3.8 [facility] Comment on above: Performed By: #### C BC ####[facility] Eefrbrposn9102 [place], [place] [address]Vd. Chrissy Freddie Lymphocytes/100 WBC (Bld) 27.0 % Normal 20.5-60.0 [facility] Comment on above: Performed By: #### C BC ####[facility] Owdnbfffqh7[address] [place] [address]Dr. Tishrowan Frazier MANUAL DIFF REQ NO Normal [facility] Comment on above: Performed By: #### C BC ####[facility] Woyfecwetj58[address] [place] [address]Dr. Chrissy Freddie MCH (RBC) [Entitic mass] 27.8 pg Normal 25.9-34.0 [facility] Comment on above: Performed By: #### C BC ####[facility] Iafxistnay7076 [place] [address]Dr. Chrissy Frazier MCHC (RBC) [Mass/Vol] 33.5 g/dL Normal 29.9-35.2 [facility] Comment on above: Performed By: #### C BC ####[facility] Agdoxuqivf56[address] [place] [address]Dr. Chrissy Frazier MCV (RBC) [Entitic vol] 82.9 fL Normal 80.0-94.0 [facility] Comment on above: Performed By: #### C BC ####[facility] Eybkopjukk6634 [place] [address]Dr. Chrissy Freddie MONO # 1.2 103/ul Critically high 0.3-0.8 [facility] Comment on above: Performed By: #### C BC ####[facility] Abjxqshift6020 [place] [address]Dr. Tishrowan Frazier Monocytes/100 WBC (Bld) 8.4 % Normal 1.7-12.0 [facility] Comment on above: Performed By: #### C BC ####[facility] Cmcbagntwz5170 [place] [address]Dr. Chrissy Frazier NEUT # 8.8 103/ul Critically high 1.4-6.5 [facility] Comment on above: Performed By: #### C BC ####[facility] Sbezksdldg0352 [place] [address]Dr. Chrissy Frazier Neutrophils/100 WBC (Bld) 63.5 % Normal 43.0-75.0 [facility] Comment on above: Performed By: #### C BC ####[facility] Decedgjpqv3643 [place] [address]Dr. Tishrowan Frazier Platelet mean volume (Bld) [Entitic vol] 10.7 fL Normal 9.5-13.5 [facility] Comment on above: Performed By: #### C BC ####[facility] G[address]kerfjvwf[address] [place] [address]Dr. Chrissy Frazier PLT 291 103/ul Normal 150-450 [facility] Comment on above: Performed By: #### C BC ####[facility] B[address]xeip[address] [place], [place] [address]Dr. Chrissy Frazier RBC 4.75 106/ul Normal 4.70-6.10 [facility] Comment on above: Performed By: #### C BC ####[facility] Aurpuhifsp4353 [place] [address]Dr. Chrissy Frazier WBC 13.8 103/ul Critically high 4.0-11.0 [facility] Comment on above: Performed By: #### C BC ####[facility] Sh[address]rzein[address] [place], [place] [address]Dr. Chrissy Frazier LIPASEon 10-24-2022 Lipase [Catalytic activity/Vol] 44.0 U/L Critically low 73.0-393.0 [facility] Comment on above: Performed By: #### C MP, LIPA, TERRENCE ####[facility] Cuueiujvtu[address] [place] [address]Dr. Chrissy Frazier PROF 14(COMP METB)on 022 Albumin [Mass/Vol] 3.4 g/dL Normal 3.4-5.0 [facility] Comment on above: Performed By: #### C OSWALD ADAIR, TERRENCE ####[facility] Tswtxorqek28[address] [place] [address]Dr. Chrissy Frazier Albumin/Globulin [Mass ratio] 0.9 {ratio} Normal [facility] Comment on above: Performed By: #### C TESSA ADAIRA, TERRENCE ####[facility] Sevuwylrjm[address] [place], [place] [address]Dr. Tishrowan Frazier ALP [Catalytic activity/Vol] 67 U/L Normal 46-116 [facility] Comment on above: Performed By: #### C OSWALD ADAIR, TERRENCE ####[facility] Lulixthroi[address] [place], [place] [address]Dr. Chrissy Frazier ALT [Catalytic activity/Vol] 25 U/L Normal 16-63 [facility] Comment on above: Performed By: #### C OSWALD ADAIR, TERRENCE ####[facility] Anigvqcicj[address] [place], [place] [address]Dr. Chrissy Frazier Anion gap [Moles/Vol] 14.5 mmol/L Normal [facility] Comment on above: Performed By: #### C OSWALD ADAIR, TERRENCE ####[facility] Cttbnuhisz[address] [place], [place] [address]Dr. Chrissy Frazier AST [Catalytic activity/Vol] 17 U/L Normal 15-37 [facility] Comment on above: Performed By: #### C OSWALD ADAIR, TERRENCE ####[facility] [address]zupsvowwl[address] [place], [place] [address]Dr. Chrissy Frazier Bilirubin [Mass/Vol] 0.5 mg/dL Normal 0.2-1.0 [facility] Comment on above: Performed By: #### C OSWALD ADAIR, TERRENCE ####[facility] Byvvfomxmm[address] [place], [place] [address]Dr. Chrissy Frazier Calcium [Mass/Vol] 8.6 mg/dL Normal 8.5-10.1 [facility] Comment on above: Performed By: #### C TESSA ADAIRA, TERRENCE ####[facility] Jngsktyayv84[address] [place] [address]Dr. Chrissy Frazier Chloride [Moles/Vol] 106 mmol/L Normal 98-107 [facility] Comment on above: Performed By: #### C OSWALD ADAIR, TERRENCE ####[facility] Vkgbnofuti1452 [place] [address]Dr. Chrissy Frazier CO2 [Moles/Vol] 22.8 mmol/L Normal 21.0-32.0 [facility] Comment on above: Performed By: #### C OSWALD ADAIR, TERRENCE ####[facility] Oqdyuahlmb[address] [place] [address]Dr. Chrissy Frazier Creatinine [Mass/Vol] 0.98 mg/dL Normal 0.70-1.30 [facility] Comment on above: Performed By: #### C OSWALD ADAIR, TERRENCE ####[facility] Ryvcssxocc92[address] [place], [place] [address]Dr. Chrissy Frazier EGFR-AF GUINEAN >60 Normal >=60 [facility] Comment on above: Performed By: #### C OSWALD ADAIR, TERRENCE ####[facility] Epfufphuow[address] [place], [place] [address]Dr. Chrissy Frazier EGFR-NON AF GUINEAN >60 Normal >=60 [facility] Comment on above: Performed By: #### C OSWALD ADAIR, TERRENCE ####[facility] Pdyshzfkpg5013 [place] [address]Dr. Chrissy Frazier Globulin (S) [Mass/Vol] 3.7 g/dL Normal [facility] Comment on above: Performed By: #### C OSWALD ADAIR, TERRENCE ####[facility] Rganxxhyyy8284 [place] [address]Dr. Chrissy Frazier Glucose [Mass/Vol] 115 mg/dL Critically high 74-106 [facility] Comment on above: Performed By: #### C OSWALD ADAIR, TERRENCE ####[facility] Tixkfnxbwy[address] [place], [place] [address]Dr. Chrissy Frazier Potassium [Moles/Vol] 3.3 mmol/L Critically low 3.5-5.1 [facility] Comment on above: Performed By: #### C MP, LIPA, TERRENCE ####[facility] Yhjesrnhrt[address] [place], [place] [address]Dr. Chrissy Frazier Protein [Mass/Vol] 7.1 g/dL Normal 6.4-8.2 [facility] Comment on above: Performed By: #### C MP, LIPA, TERRENCE ####[facility] Qvqonlyqhp3[address] [place], [place] [address]Dr. Chrissy Frazier Sodium [Moles/Vol] 140 mmol/L Normal 136-145 [facility] Comment on above: Performed By: #### C MP, LIPA, TERRENCE ####[facility] Foapetmupd[address] [place], [place] [address]Dr. Chrissy Frazier Urea nitrogen [Mass/Vol] 10.0 mg/dL Normal 7.0-18.0 [facility] Comment on above: Performed By: #### C MP, LIPA, TERRENCE ####[facility] Cacrcefomf[address] [place], [place] [address]Dr. Chrissy Frazier Urea nitrogen/Creatinine [Mass ratio] 10.2 mg/mg Normal [facility] Comment on above: Performed By: #### C MP, LIPA, TERRENCE ####[facility] Vpidjnojyc[address] [place], [place] [address]Dr. Chrissy Frazier AMYLASEon 10-23-2022 Amylase [Catalytic activity/Vol] 31 U/L Normal 25-115 [facility] Comment on above: Performed By: #### C MP, LIPA, TERRENCE ####[facility] Veednacdhv[address] [place], [place] [address]Dr. Chrissy Frazier CBC AUTO DIFFon 10-23-2022 BASO # 0.1 103/ul Normal 0.0-0.1 [facility] Comment on above: Performed By: #### C BC ####[facility] Kibtcjapax[address] [place], [place] [address]Dr. Chrissy Frazier Basophils/100 WBC (Bld) 0.3 % Normal 0.2-2.0 [facility] Comment on above: Performed By: #### C BC ####[facility] Gpiooymkza0293 [place] [address]Dr. Chrissy Frazier EO # 0.1 103/ul Normal 0.0-0.7 [facility] Comment on above: Performed By: #### C BC ####[facility] Akhwsxhakv55[address] [place] [address]Dr. Chrissy Frazier Eosinophils/100 WBC (Bld) 0.3 % Critically low 0.9-7.0 [facility] Comment on above: Performed By: #### C BC ####[facility] Lguhagzaml[address] [place], [place] [address]Dr. Chrissy Frazier Erythrocyte distribution width (RBC) [Ratio] 14.5 % Normal 11.0-15.0 [facility] Comment on above: Performed By: #### C BC ####[facility] Bxfdjlxaiy[address] [place], [place] [address]Dr. Chrissy Frazier Hematocrit (Bld) [Volume fraction] 44.0 % Normal 42.0-54.0 [facility] Comment on above: Performed By: #### C BC ####[facility] Ugzeaveyyt[address] [place], [place] [address]Dr. Chrissy Frazier Hemoglobin (Bld) [Mass/Vol] 14.8 g/dL Normal 14.0-18.0 [facility] Comment on above: Performed By: #### C BC ####[facility] Jxbdktrwpv4821 [place] [address]Dr. Chrissy Frazier IG # 0.09 10e3/ul Critically high 0.00-0.03 [facility] Comment on above: Performed By: #### C BC ####[facility] Npgwpmobto7532 [place] [address]Dr. Chrissy Frazier IG % 0.5 % Normal 0.0-0.5 [facility] Comment on above: Performed By: #### C BC ####[facility] Jwnwndywde[address] [place], [place] [address]Dr. Chrissy Frazier LYMPH # 3.6 103/ul Normal 1.2-3.8 [facility] Comment on above: Performed By: #### C BC ####[facility] Bacflegowp1845 [place] [address]Dr. Chrissy Freddie Lymphocytes/100 WBC (Bld) 19.4 % Critically low 20.5-60.0 [facility] Comment on above: Performed By: #### C BC ####[facility] Fofhxoaxtt6[address] [place] [address]Dr. Tishrowan Frazier MANUAL DIFF REQ NO Normal [facility] Comment on above: Performed By: #### C BC ####[facility] Hcyyvxycfn7095 [place] [address]Dr. Chrissy Freddie MCH (RBC) [Entitic mass] 28.1 pg Normal 25.9-34.0 [facility] Comment on above: Performed By: #### C BC ####[facility] Wvqggnprtg5562 [place] [address]Dr. Chrissy Freddie MCHC (RBC) [Mass/Vol] 33.6 g/dL Normal 29.9-35.2 [facility] Comment on above: Performed By: #### C BC ####[facility] Rfwlacfzva7384 [place] [address]Dr. Chrissy Freddie MCV (RBC) [Entitic vol] 83.5 fL Normal 80.0-94.0 [facility] Comment on above: Performed By: #### C BC ####[facility] Dxdiihuqap6677 [place] [address]Dr. Chrissy Frazier MONO # 0.9 103/ul Critically high 0.3-0.8 [facility] Comment on above: Performed By: #### C BC ####[facility] Zukwnsdctf0349 [place] [address]Dr. Tishrowan Frazier Monocytes/100 WBC (Bld) 4.9 % Normal 1.7-12.0 [facility] Comment on above: Performed By: #### C BC ####[facility] Hvdwujruhl8387 [place] [address]Dr. Chrissy Frazier NEUT # 13.9 103/ul Critically high 1.4-6.5 [facility] Comment on above: Performed By: #### C BC ####[facility] Dqgnzozavq3694 [place] [address]Dr. Chrissy Frazier Neutrophils/100 WBC (Bld) 74.6 % Normal 43.0-75.0 [facility] Comment on above: Performed By: #### C BC ####[facility] Wvbwvnsuyv6072 [place] [address]Dr. Chrissy Frazier Platelet mean volume (Bld) [Entitic vol] 10.5 fL Normal 9.5-13.5 [facility] Comment on above: Performed By: #### C BC ####[facility] Wgvqpfsluy7239 [place] [address]Dr. Chrissy Frazier PLT 402 103/ul Normal 150-450 [facility] Comment on above: Performed By: #### C BC ####[facility] Oigarihlek3704 [place] [address]Dr. Chrissy Frazier RBC 5.27 106/ul Normal 4.70-6.10 [facility] Comment on above: Performed By: #### C BC ####[facility] Lwtkeirgoq4889 [place] [address]Dr. Chrissy Frazier WBC 18.6 103/ul Critically high 4.0-11.0 [facility] Comment on above: Performed By: #### C BC ####[facility] Mkywjzzirl[address] [place] [address]Dr. Chrissy Frazier CULTURE BLOODon 10-23-2022 Microscopic examination of blood, culture Culture Observations: NO GROWTH AT 5 DAYS. Normal [facility] Comment on above: Performed By: #### B LDCX2 ####[facility] Vlmqszertx2308 [place] [address]Dr. Chrissy Frazier Microscopic examination of blood, culture Culture Observations: NO GROWTH AT 5 DAYS. Normal [facility] Comment on above: Performed By: #### B LDCX1 ####[facility] Iwxgmwbjps6889 [place] [address]Dr. Chrissy Frazier CULTURE URINEon 10-23-2022 CULTURE URINE Culture Observations: NO GROWTH. Normal [facility] Comment on above: Performed By: #### U RCX ####[facility] Rogdwoopch[address] [place] [address]Dr. Chrissy Frazier Covid-19 PCR (CVDTB)on SARS-CoV-2 (COVID-19) RNA RHIANNON+probe Ql (Unsp spec) Not detected Normal NOT DETECTED [facility] Comment on above: Result Comment: When [...] for this test is supported by the [employer] Manager of Health and Human Service's declaration [...] be used). Performed By: #### C VDTBH ####[facility] Fmqndciavb[address] [place], [place] [address]Dr. Chrissy Frazier INFLUENZA A AND B AGon 10-23 INFLUANEGH SEE BELOW Normal [facility] Comment on above: Result Comment: Nega tive for Flu A protein angiten. Infection due to Flu A cannot be ruled out. Flu A angiten in the sample may be below the detection limit of the test. Performed By: #### I NFLUAB ####[facility] Grikxxvgjy[address] [place], [place] [address]Dr. Chrissy Frazier INFLUBNEGH SEE BELOW Normal [facility] Comment on above: Result Comment: Nega tive for Flu B protein antigen. Infection due to Flu B cannot be ruled out. Flu B antigen in the sample may be below the detection limit of the test. Performed By: #### I NFLUAB ####[facility] Qaoznypwxd[address] [place], [place] [address]Dr. Chrissy Frazier INFLUENZA A AG Negative Normal NEGATIVE SEE COMMENT [facility] Comment on above: Performed By: #### I NFLUAB ####[facility] Jugmrthmwe38[address] [place] [address]Dr. Chrissy Frazier INFLUENZA B AG Negative Normal NEGATIVE SEE COMMENT [facility] Comment on above: Performed By: #### I NFLUAB ####[facility] Vvhbmuaujo[address] [place], [place] [address]Dr. Chrissy Frazier INTERNAL CONTROLS Within Normal Limits Normal Wi thin Normal Limits [facility] Comment on above: Performed By: #### I NFLUAB ####[facility] Kmnjrlofqk[address] [place], [place] [address]Dr. Chrissy Frazier LACTATE/LACTIC ACIDon 2021 Lactate [Moles/Vol] 2.1 mmol/L Critically high 0.4-1.9 [facility] Comment on above: Performed By: #### L ACT ####[facility] Shqorrnbbx[address] [place], [place] [address]Dr. Chrissy Frazier Lactate [Moles/Vol] 6.9 mmol/L Critically high 0.4-1.9 [facility] Comment on above: Performed By: #### L ACT ####[facility] Vmtdjaiuth6[address] [place], [place] [address]Dr. Chrissy Freddie LIPASEon 10-23-2022 Lipase [Catalytic activity/Vol] 72.0 U/L Critically low 73.0-393.0 [facility] Comment on above: Performed By: #### C OSWALD ADAIR AMY ####[facility] Slxsnncyxj[address] [place], [place] [address]Dr. Chrissy Frazier PROF 14(COMP METB)on 022 Albumin [Mass/Vol] 3.9 g/dL Normal 3.4-5.0 [facility] Comment on above: Performed By: #### C OSWALD ADAIR AMY ####[facility] [address]zpkmeutgi[address] [place], [place] [address]Dr. Chrissy Freddie Albumin/Globulin [Mass ratio] 0.9 {ratio} Normal [facility] Comment on above: Performed By: #### C MP, LIPA, TERRENCE ####[facility] Dowisxjfjd039[address] [place] [address]Dr. Chrissy Frazier ALP [Catalytic activity/Vol] 82 U/L Normal 46-116 [facility] Comment on above: Performed By: #### C MP, LIPA, TERRENCE ####[facility] [address]nsbpji[address] [place] [id number]. Chrissy Frazier ALT [Catalytic activity/Vol] 25 U/L Normal 16-63 [facility] Comment on above: Performed By: #### C MP, LIPA, TERRENCE ####[facility] Vaphlfpxuq[address] [place], [place] [address]Dr. Chrissy Frazier Anion gap [Moles/Vol] 18.1 mmol/L Normal [facility] Comment on above: Performed By: #### C MP, LIPA, TERRENCE ####[facility] Eerfjrmykz[address] [place], [place] [address]Dr. Chrissy Frazier AST [Catalytic activity/Vol] 17 U/L Normal 15-37 [facility] Comment on above: Performed By: #### C MP, LIPA, TERRENCE ####[facility] Yfjserqroz35[address] [place], [place] [address]Dr. Chrissy Frazier Bilirubin [Mass/Vol] 0.5 mg/dL Normal 0.2-1.0 [facility] Comment on above: Performed By: #### C MP, LIPA, TERRENCE ####[facility] Wrhsicoqle[address] [place], [place] [address]Dr. Chrissy Frazier Calcium [Mass/Vol] 9.1 mg/dL Normal 8.5-10.1 [facility] Comment on above: Performed By: #### C MP, LIPA, TERRENCE ####[facility] Rxpbogfnjr4[address] [place], [place] [address]Dr. Chrissy Frazier Chloride [Moles/Vol] 101 mmol/L Normal 98-107 [facility] Comment on above: Performed By: #### C MP, LIPA, TERRENCE ####[facility] Aqyzxopddy2[address] [place], [place] [address]Dr. Chrissy Frazier CO2 [Moles/Vol] 19.2 mmol/L Critically low 21.0-32.0 [facility] Comment on above: Performed By: #### C OSWALD ADAIR TERRENCE ####[facility] [address]wi[address] [place] [address]Dr. Chrissy Frazier Creatinine [Mass/Vol] 1.72 mg/dL Critically high 0.70-1.30 [facility] Comment on above: Performed By: #### C OSWALD ADAIR, TERRENCE ####[facility] Wiucojprmc[address] [place] [address]Dr. Chrissy Frazier EGFR-AF GUINEAN 56 mL/min/1.73m2 Critically low >=60 [facility] Comment on above: Performed By: #### C OSWALD ADAIR, TERRENCE ####[facility] Usawjnubbs[address] [place] [address]Dr. Chrissy Frazier EGFR-NON AF GUINEAN 46 mL/min/1.73m2 Critically low >=60 [facility] Comment on above: Performed By: #### C OSWALD ADAIR, TERRENCE ####[facility] Ggswncgcje4[address] [place], [place] [address]Dr. Chrissy Frazier Globulin (S) [Mass/Vol] 4.2 g/dL Normal [facility] Comment on above: Performed By: #### C OSWALD ADAIR, TERRENCE ####[facility] [address]rgdxej[address] [place] [address]Dr. Chrissy Frazier Glucose [Mass/Vol] 126 mg/dL Critically high 74-106 [facility] Comment on above: Performed By: #### C OSWALD ADAIR, TERRENCE ####[facility] [address]vkgpwu[address] [place] [address]Dr. Chrissy Frazier Potassium [Moles/Vol] 3.3 mmol/L Critically low 3.5-5.1 [facility] Comment on above: Performed By: #### C TESSA ADAIRA, TERRENCE ####[facility] Bedtrrxzug[address] [place] [address]Dr. Chrissy Frazier Protein [Mass/Vol] 8.1 g/dL Normal 6.4-8.2 [facility] Comment on above: Performed By: #### C OSWALD ADAIR, TERRENCE ####[facility] Cqnxeizesk[address] [place] [address]Dr. Chrissy Frazier Sodium [Moles/Vol] 135 mmol/L Critically low 136-145 Th e [facility] Comment on above: Performed By: #### C TESSA ADAIRA, TERRENCE ####[facility] Dxrjabwlpm[address] [place] [address]Dr. Chrissy Frazier Urea nitrogen [Mass/Vol] 13.0 mg/dL Normal 7.0-18.0 [facility] Comment on above: Performed By: #### C OSWALD ADAIR, TERRENCE ####[facility] Qulsrsesbn4546[address] [place], [place] [address]Dr. Chrissy Frazier Urea nitrogen/Creatinine [Mass ratio] 7.6 mg/mg Normal [facility] Comment on above: Performed By: #### C OSWALD ADAIR, TERRENCE ####[facility] Fofketoueh[address] [place], [place] [address]Dr. Chrissy Frazier UA RANDOM W/MICROSCOPICon BACTERIA NONE SEEN Normal NONE SEEN [facility] Comment on above: Performed By: #### U AMIC ####[facility] Ayefqcmolf[address] [place], [place] [address]Dr. Chrissy Frazier Bilirubin Ql (U) Negative Normal NEGATIVE The [facility] Comment on above: Performed By: #### U AMIC ####[facility] Gsfrvmwrcv10[address] [place], [place] [address]Dr. Chrissy Frazier CAST NONE SEEN Normal NONE SEEN [facility] Comment on above: Performed By: #### U AMIC ####[facility] Sqbgzfysgi67[address] [place], [place] [address]Dr. Chrissy Frazier Clarity (U) CLEAR Normal CLEAR [facility] Comment on above: Performed By: #### U AMIC ####[facility] Hnchxsmndu[address] [place] [address]Dr. Chrissy Frazier Color (U) LT. YELLOW Normal YELLOW [facility] Comment on above: Performed By: #### U AMIC ####[facility] Ucysgndyly[address] [place] [address]Dr. Chrissy Frazier Crystals LM Nom (Urine sed) NONE SEEN Normal NONE SEEN [facility] Comment on above: Performed By: #### U AMIC ####[facility] Ljdlkiohat07[address] [place], [place] [address]Dr. Chrissy Frazier Epithelial cells LM Ql (Urine sed) FEW Abnormal NONE SEEN /RARE [facility] Comment on above: Performed By: #### U AMIC ####[facility] Eihqbguiey232[address] [place], [place] [address]Dr. Chrissy Frazier Glucose Ql (U) Negative Normal NEGATIVE The [facility] Comment on above: Performed By: #### U AMIC ####[facility] Epthllvohd9827[address] [place], [place] [address]Dr. Chrissy Frazier Hemoglobin Ql (U) Negative Normal NEGATIVE The [facility] Comment on above: Performed By: #### U AMIC ####[facility] Ayhjgidkph7450[address] [place], [place] [address]Dr. Chrissy Frazier Ketones Ql (U) 15 mg/dl Abnormal NEGATIVE The [facility] Comment on above: Performed By: #### U AMIC ####[facility] Rqzydzhfvs2637[address] [place], [place] [address]Dr. Chrissy Frazier LEUKOCYTES Negative Normal NEGATIVE The [facility] Comment on above: Performed By: #### U AMIC ####[facility] Wvgpftwvii0256[address] [place], [place] [address]Dr. Chrissy Frazier MUCOUS NONE SEEN Normal NONE SEEN [facility] Comment on above: Performed By: #### U AMIC ####[facility] Gfysmnaiyy3147[address] [place], [place] [address]Dr. Chrissy Frazier Nitrite Ql (U) Negative Normal NEGATIVE The [facility] Comment on above: Performed By: #### U AMIC ####[facility] Vrvnwzgotw[address] [place], [place] [address]Dr. Chrissy Frazier pH (U) 6.0 [pH] Normal 5-9 [facility] Comment on above: Performed By: #### U AMIC ####[facility] Rvnsqivsua516[address] [place], [place] [address]Dr. Chrissy Frazier RBC 0-2 Normal 0-2 [facility] Comment on above: Performed By: #### U AMIC ####[facility] Kdrrwaymje[address] [place] [address]Dr. Chrissy Frazier SPEC GRAVITY 1.010 Normal 1.005-<=1.025 The [facility] Comment on above: Performed By: #### U AMIC ####[facility] Nprrfaqvyt62[address] [place] [address]Dr. Chrissy Freddie UA PROTEIN Negative Normal NEGATIVE/ TRACE The [facility] Comment on above: Performed By: #### U AMIC ####[facility] Uprghflvmn16[address] [place] [address]Dr. Chrissy Freddie Urobilinogen Qn (U) 0.2 {Estrellita'U}/dL Normal 0.2 - 1. 0 [facility] Comment on above: Performed By: #### U AMIC ####[facility] Lgxmspjqfv782[address] [place], [place] [address]Dr. Chrissy Freddie WBC NONE SEEN Normal NONE SEEN [facility] Comment on above: Performed By: #### U AMIC ####[facility] Vgjabjrily[address] [place], [place] [address]Dr. Chrissy Freddie AMYLASEon 10-22-2022 Amylase [Catalytic activity/Vol] 28 U/L Normal 25-115 [facility] Comment on above: Performed By: #### L IPA, CMP, TERRENCE ####[facility] Clbbknglgb334[address] [place], [place] [address]Dr. Chrissy Freddie CBC AUTO DIFFon 10-22-2022 BASO # 0.0 103/ul Normal 0.0-0.1 [facility] Comment on above: Performed By: #### C BC ####[facility] Cfvidomgko[address] [place], [place] [address]Dr. Tishrowan Frazier Basophils/100 WBC (Bld) 0.2 % Normal 0.2-2.0 [facility] Comment on above: Performed By: #### C BC ####[facility] Rnhkpzannd[address] [place], [place] [address]Dr. Chrissy Frazier EO # 0.0 103/ul Normal 0.0-0.7 [facility] Comment on above: Performed By: #### C BC ####[facility] Vkgkyxddca[address] [place] [address]Dr. Chrissy Frazier Eosinophils/100 WBC (Bld) 0.1 % Critically low 0.9-7.0 [facility] Comment on above: Performed By: #### C BC ####[facility] Ufsnfcdxgr6[address] [place] [address]Dr. Chrissy Frazier Erythrocyte distribution width (RBC) [Ratio] 14.4 % Normal 11.0-15.0 [facility] Comment on above: Performed By: #### C BC ####[facility] Ggewdatliv035[address] [place], [place] [address]Dr. Chrissy Frazier Hematocrit (Bld) [Volume fraction] 45.2 % Normal 42.0-54.0 [facility] Comment on above: Performed By: #### C BC ####[facility] Fnwgzlkyrf2538[address] [place], [place] [address]Dr. Chrissy Frazier Hemoglobin (Bld) [Mass/Vol] 15.4 g/dL Normal 14.0-18.0 [facility] Comment on above: Performed By: #### C BC ####[facility] Yodnysihct94[address] [place], [place] [address]Dr. Chrissy Frazier IG # 0.07 10e3/ul Critically high 0.00-0.03 [facility] Comment on above: Performed By: #### C BC ####[facility] L[address]kfaeghxz74[address] [place] [address]Dr. Chrissy Frazier IG % 0.4 % Normal 0.0-0.5 [facility] Comment on above: Performed By: #### C BC ####[facility] Sktfpszepq13[address] [place], [place] [address]Dr. Chrissy Frazier LYMPH # 2.0 103/ul Normal 1.2-3.8 [facility] Comment on above: Performed By: #### C BC ####[facility] Pdeauhfbcf[address] [place], [place] [address]Dr. Chrissy Frazier Lymphocytes/100 WBC (Bld) 12.2 % Critically low 20.5-60.0 [facility] Comment on above: Performed By: #### C BC ####[facility] Q[address]xfrfvh[address] [place] [address]DrNancy Frazier MANUAL DIFF REQ NO Normal [facility] Comment on above: Performed By: #### C BC ####[facility] Douokdiumo[address] [place] [address]Dr. Chrissy Frazier MCH (RBC) [Entitic mass] 28.3 pg Normal 25.9-34.0 [facility] Comment on above: Performed By: #### C BC ####[facility] Fitcljclxu8274[address] [place], [place] [address]Dr. Chrissy Frazier MCHC (RBC) [Mass/Vol] 34.1 g/dL Normal 29.9-35.2 [facility] Comment on above: Performed By: #### C BC ####[facility] Msubnuvhft[address] [place], [place] [address]Dr. Chrissy Frazier MCV (RBC) [Entitic vol] 82.9 fL Normal 80.0-94.0 [facility] Comment on above: Performed By: #### C BC ####[facility] Yibutyuutg2615[address] [place], [place] [address]Dr. Chrissy Frazier MONO # 0.3 103/ul Normal 0.3-0.8 [facility] Comment on above: Performed By: #### C BC ####[facility] Enjwnauobg1701[address] [place], [place] [address]Dr. Chrissy Frazier Monocytes/100 WBC (Bld) 2.0 % Normal 1.7-12.0 [facility] Comment on above: Performed By: #### C BC ####[facility] Yrxgbzlozs6645[address] [place], [place] [address]DrNancy Frazier NEUT # 14.0 103/ul Critically high 1.4-6.5 [facility] Comment on above: Performed By: #### C BC ####[facility] Zrihylertw5[address] [place], [place] [address]Dr. Chrissy Frazier Neutrophils/100 WBC (Bld) 85.1 % Critically high 43.0-75.0 [facility] Comment on above: Performed By: #### C BC ####[facility] Hzhapmsuhn[address] [place] [address]Dr. Chrissy Frazier Platelet mean volume (Bld) [Entitic vol] 10.6 fL Normal 9.5-13.5 [facility] Comment on above: Performed By: #### C BC ####[facility] Oht[address]zavkof[address] [place] [address]Dr. Chrissy Frazier PLT 411 103/ul Normal 150-450 [facility] Comment on above: Performed By: #### C BC ####[facility] Rzrltvphiq4876 [place] [address]Dr. Tishrowan Frazier RBC 5.45 106/ul Normal 4.70-6.10 [facility] Comment on above: Performed By: #### C BC ####[facility] Htuwskfiku03[address] [place], [place] [address]Dr. Chrissy Frazier WBC 16.5 103/ul Critically high 4.0-11.0 [facility] Comment on above: Performed By: #### C BC ####[facility] Nplfptqqgi[address] [place], [place] [address]Dr. Chrissy Freddie LIPASEon 10-22-2022 Lipase [Catalytic activity/Vol] 57.0 U/L Critically low 73.0-393.0 [facility] Comment on above: Performed By: #### L JULIEN CMP, TERRENCE ####[facility] [address]zokattu[address] [place] [address]Dr. hCrissy Frazier PROF 14(COMP METB)on 022 Albumin [Mass/Vol] 4.2 g/dL Normal 3.4-5.0 The [facility] Comment on above: Performed By: #### L IPA CMP, TERRENCE ####[facility] Rocetsnzdm2497 [place] [address]Dr. Chrissy Frazier Albumin/Globulin [Mass ratio] 1.0 {ratio} Normal [facility] Comment on above: Performed By: #### L IPA, CMP, TERRENCE ####[facility] Yqdjcujzsq0[address] [place] [address]Dr. Chrissy Frazier ALP [Catalytic activity/Vol] 92 U/L Normal 46-116 [facility] Comment on above: Performed By: #### L IPA, CMP, TERRENCE ####[facility] Tduqnbhyzk7[address] [place] [address]Dr. Chrissy Frazier ALT [Catalytic activity/Vol] 26 U/L Normal 16-63 [facility] Comment on above: Performed By: #### L IPA, CMP, TERRENCE ####[facility] Cmctoftcgg0718 [place] [address]Dr. Chrissy Frazier Anion gap [Moles/Vol] 19.5 mmol/L Normal [facility] Comment on above: Performed By: #### L IPA, CMP, TERRENCE ####[facility] Qfnuangbda685[address] [place], [place] [address]Dr. Chrissy Frazier AST [Catalytic activity/Vol] 19 U/L Normal 15-37 [facility] Comment on above: Performed By: #### L IPA, CMP, TERRENCE ####[facility] Mjefuoxigl[address] [place], [place] [address]Dr. Chrissy Frazier Bilirubin [Mass/Vol] 0.7 mg/dL Normal 0.2-1.0 [facility] Comment on above: Performed By: #### L IPA, CMP, TERRENCE ####[facility] Z[address]qvamqhu[address] [place] [address]Dr. Chrissy Frazier Calcium [Mass/Vol] 9.6 mg/dL Normal 8.5-10.1 [facility] Comment on above: Performed By: #### L IPA, CMP, TERRENCE ####[facility] Tuxuyniadz4[address] [place] [address]Dr. Chrissy Frazier Chloride [Moles/Vol] 102 mmol/L Normal 98-107 [facility] Comment on above: Performed By: #### L IPA, CMP, TERRENCE ####[facility] Koloidohip2534 [place] [address]Dr. Chrissy Frazier CO2 [Moles/Vol] 19.1 mmol/L Critically low 21.0-32.0 [facility] Comment on above: Performed By: #### L IPA CMP, TERRENCE ####[facility] Svxlqemecq9623 [place] [address]Dr. Chrissy Frazier Creatinine [Mass/Vol] 1.47 mg/dL Critically high 0.70-1.30 [facility] Comment on above: Performed By: #### L IPA CMP, TERRENCE ####[facility] Wfrevjtydt423[address] [place], [place] [address]Dr. Chrissy Freddie EGFR-AF GUINEAN >60 Normal >=60 [facility] Comment on above: Performed By: #### L IPA CMP, TERRENCE ####[facility] Qefizsnhpk2817[address] [place], [place] [address]Dr. Tishrowan Freddie EGFR-NON AF GUINEAN 56 mL/min/1.73m2 Critically low >=60 [facility] Comment on above: Performed By: #### L IPA CMP, TERRENCE ####[facility] Mpctsrbymo399[address] [place], [place] [address]Dr. Chrissy Frazier Globulin (S) [Mass/Vol] 4.3 g/dL Normal [facility] Comment on above: Performed By: #### L IPA CMP, TERRENCE ####[facility] Lgvvwgrmgn96[address] [place], [place] [address]Dr. Chrissy Frazier Glucose [Mass/Vol] 189 mg/dL Critically high 74-106 [facility] Comment on above: Performed By: #### L IPA CMP, TERRENCE ####[facility] Xqyrvevhhj3812[address] [place], [place] [address]Dr. Chrissy Frazier Potassium [Moles/Vol] 4.6 mmol/L Normal 3.5-5.1 [facility] Comment on above: Performed By: #### L IPA CMP, TERRENCE ####[facility] Wgkwttkyuy1501[address] [place], [place] [address]Dr. Chrissy Frazier Protein [Mass/Vol] 8.5 g/dL Critically high 6.4-8.2 [facility] Comment on above: Performed By: #### L IPA CMP, TERRENCE ####[facility] Eduzyzosmj24[address] [place] [id number]. Chrissy Freddie Sodium [Moles/Vol] 136 mmol/L Normal 136-145 [facility] Comment on above: Performed By: #### L IPA, CMP, TERRENCE ####[facility] Kjyzazvaho[address] [place] [address]Dr. Chrissy Freddie Urea nitrogen [Mass/Vol] 16.0 mg/dL Normal 7.0-18.0 [facility] Comment on above: Performed By: #### L IPA, CMP, TERRENCE ####[facility] Tflyjnihqo8[address] [place] [address]Dr. Tishrowan Frazier Urea nitrogen/Creatinine [Mass ratio] 10.9 mg/mg Normal [facility] Comment on above: Performed By: #### L IPA, CMP, TERRENCE ####[facility] Fywdrbdhee6[address] [place], [place] [address]Dr. Tishrowan Frazier AMYLASEon 09-03-2022 Amylase [Catalytic activity/Vol] 25 U/L Normal 25-115 [facility] Comment on above: Performed By: #### L IPA, TERRENCE, CMP ####[facility] Wshzjcjamy[address] [place], [place] [address]Dr. Chrissy Frazier CBC AUTO DIFFon 09-03-2022 BASO # 0.0 103/ul Normal 0.0-0.1 [facility] Comment on above: Performed By: #### C BC ####[facility] Jxnossqeld1286[address] [place], [place] [address]Dr. Chrissy Frazier Basophils/100 WBC (Bld) 0.1 % Critically low 0.2-2.0 [facility] Comment on above: Performed By: #### C BC ####[facility] Rgpehhhuex4114[address] [place], [place] [address]Dr. Chrissy Frazier EO # 0.0 103/ul Normal 0.0-0.7 [facility] Comment on above: Performed By: #### C BC ####[facility] Ewrmoqcnaa[address]14[address] [place], [place] [address]Dr. Chrissy Frazier Eosinophils/100 WBC (Bld) 0.1 % Critically low 0.9-7.0 [facility] Comment on above: Performed By: #### C BC ####[facility] Jdzzsodibw60[address] [place] [address]Dr. Chrissy Frazier Erythrocyte distribution width (RBC) [Ratio] 14.0 % Normal 11.0-15.0 [facility] Comment on above: Performed By: #### C BC ####[facility] Jnimuhjjbq8[address] [place] [address]Dr. Chrissy Frazier Hematocrit (Bld) [Volume fraction] 42.5 % Normal 42.0-54.0 [facility] Comment on above: Performed By: #### C BC ####[facility] Opxsfvtftj9387[address] [place], [place] [address]Dr. Chrissy Frazier Hemoglobin (Bld) [Mass/Vol] 14.1 g/dL Normal 14.0-18.0 [facility] Comment on above: Performed By: #### C BC ####[facility] Tifvbvyabx8684[address] [place], [place] [address]Dr. Chrissy Frazier IG # 0.06 10e3/ul Critically high 0.00-0.03 [facility] Comment on above: Performed By: #### C BC ####[facility] Jbkqwjkpbn7514[address] [place], [place] [address]Dr. Chrissy Frazier IG % 0.4 % Normal 0.0-0.5 [facility] Comment on above: Performed By: #### C BC ####[facility] Xirugyddml[address] [place], [place] [address]Dr. Chrissy Frazier LYMPH # 2.5 103/ul Normal 1.2-3.8 [facility] Comment on above: Performed By: #### C BC ####[facility] Iwmxhspomz2664[address] [place], [place] [address]Dr. Chrissy Frazier Lymphocytes/100 WBC (Bld) 16.3 % Critically low 20.5-60.0 [facility] Comment on above: Performed By: #### C BC ####[facility] Fjbhbaioot9060[address] [place], [place] [address]Dr. Chrissy Frazier MANUAL DIFF REQ NO Normal [facility] Comment on above: Performed By: #### C BC ####[facility] Derbudghsn[address] [place] [id number] Chrissy Freddie MCH (RBC) [Entitic mass] 28.1 pg Normal 25.9-34.0 [facility] Comment on above: Performed By: #### C BC ####[facility] Swsmciicwf55[address] [place] [address]Dr. Chrissy Frazier MCHC (RBC) [Mass/Vol] 33.2 g/dL Normal 29.9-35.2 [facility] Comment on above: Performed By: #### C BC ####[facility] Nnywidazde8967 [place] [address]DrNancy Frazier MCV (RBC) [Entitic vol] 84.8 fL Normal 80.0-94.0 [facility] Comment on above: Performed By: #### C BC ####[facility] Xxxwuanyne9415[address] [place], [place] [address]DrNancy Frazier MONO # 1.1 103/ul Critically high 0.3-0.8 [facility] Comment on above: Performed By: #### C BC ####[facility] Zveawmnioj0714[address] [place], [place] [address]DrNancy Frazier Monocytes/100 WBC (Bld) 7.4 % Normal 1.7-12.0 [facility] Comment on above: Performed By: #### C BC ####[facility] Mmginvbkom[address] [place], [place] [address]DrNancy Frazier NEUT # 11.5 103/ul Critically high 1.4-6.5 [facility] Comment on above: Performed By: #### C BC ####[facility] Ogbhnvufwy[address] [place], [place] [address]DrNancy Frazier Neutrophils/100 WBC (Bld) 75.7 % Critically high 43.0-75.0 [facility] Comment on above: Performed By: #### C BC ####[facility] Uarpfoadkk3286[address] [place], [place] [address]DrNancy Frazier Platelet mean volume (Bld) [Entitic vol] 10.6 fL Normal 9.5-13.5 [facility] Comment on above: Performed By: #### C BC ####[facility] Wtgkyjoqcd6124 [place] [address]Dr. Chrissy Frazier PLT 310 103/ul Normal 150-450 [facility] Comment on above: Performed By: #### C BC ####[facility] Qrtoswblss6858 [place] [address]Dr. Chrissy Frazier RBC 5.01 106/ul Normal 4.70-6.10 [facility] Comment on above: Performed By: #### C BC ####[facility] Ysbkgqyjnr47[address] [place] [address]Dr. Chrissy Frazier WBC 15.2 103/ul Critically high 4.0-11.0 [facility] Comment on above: Performed By: #### C BC ####[facility] Rfyrsbzeii40[address] [place], [place] [address]Dr. Chrissy Frazier LIPASEon 09-03-2022 Lipase [Catalytic activity/Vol] 46.0 U/L Critically low 73.0-393.0 [facility] Comment on above: Performed By: #### L TERRENCE VICTORIA, CMP ####[facility] Wrrygjpmsb72[address] [place], [place] [address]Dr. Chrissy Frazier PROF 14(COMP METB)on 022 Albumin [Mass/Vol] 3.7 g/dL Normal 3.4-5.0 [facility] Comment on above: Performed By: #### L TERRENCE VICTORIA, CMP ####[facility] Oysfnyajkb[address] [place], [place] [address]Dr. Chrissy Frazier Albumin/Globulin [Mass ratio] 1.0 {ratio} Normal [facility] Comment on above: Performed By: #### L TERRENCE VICTORIA, CMP ####[facility] Lvkviuilni[address] [place], [place] [address]Dr. Chrissy Frazier ALP [Catalytic activity/Vol] 65 U/L Normal 46-116 [facility] Comment on above: Performed By: #### L TERRENCE VICTORIA, CMP ####[facility] Bgdmepkhsm119[address] [place] [address]Dr. Chrissy Frazier ALT [Catalytic activity/Vol] 42 U/L Normal 16-63 [facility] Comment on above: Performed By: #### L TERRENCE VICTORIA, CMP ####[facility] Afdawxbmjd69[address] [place] [address]Dr. Chrissy Frazier Anion gap [Moles/Vol] 14.4 mmol/L Normal [facility] Comment on above: Performed By: #### L TERRENCE VICTORIA, CMP ####[facility] Edvvxrkpje034[address] [place], [place] [address]Dr. Chrissy Frazier AST [Catalytic activity/Vol] 16 U/L Normal 15-37 [facility] Comment on above: Performed By: #### L TERRENCE VICTORIA, CMP ####[facility] Crafddtopq38[address] [place], [place] [address]Dr. Chrissy Frazier Bilirubin [Mass/Vol] 0.4 mg/dL Normal 0.2-1.0 [facility] Comment on above: Performed By: #### L TERRENCE VICTORIA, CMP ####[facility] Wvjelavqjm[address] [place], [place] [address]Dr. Chrissy Frazier Calcium [Mass/Vol] 8.7 mg/dL Normal 8.5-10.1 [facility] Comment on above: Performed By: #### L TERRENCE VICTORIA, CMP ####[facility] [address] [place], [place] [address]Dr. Chrissy Frazier Chloride [Moles/Vol] 105 mmol/L Normal 98-107 [facility] Comment on above: Performed By: #### L TERRENCE VICTORIA, CMP ####[facility] [address] [place] [address]Dr. Chrissy Frazier CO2 [Moles/Vol] 22.6 mmol/L Normal 21.0-32.0 [facility] Comment on above: Performed By: #### L TERRENCE VICTORIA, CMP ####[facility] [address] [place], [place] [address]Dr. Chrissy Frazier Creatinine [Mass/Vol] 1.11 mg/dL Normal 0.70-1.30 [facility] Comment on above: Performed By: #### L IPA TERRENCE, CMP ####[facility] [address] [place] [id number]. Chrissy Frazier EGFR-AF GUINEAN >60 Normal >=60 [facility] Comment on above: Performed By: #### L IPA TERRENCE, CMP ####[facility] Iduvdrdzgj4[address] [place] [address]Dr. Chrissy Frazier EGFR-NON AF GUINEAN >60 Normal >=60 [facility] Comment on above: Performed By: #### L IPA TERRENCE, CMP ####[facility] [address] [place] [address]Dr. Chrissy Frazier Globulin (S) [Mass/Vol] 3.7 g/dL Normal [facility] Comment on above: Performed By: #### L JULIEN TERRENCE, CMP ####[facility] [address] [place] [address]Dr. Chrissy Frazier Glucose [Mass/Vol] 121 mg/dL Critically high 74-106 [facility] Comment on above: Performed By: #### L JULIEN TERRENCE, CMP ####[facility] [address]vqyrvyw[address] [place] [address]Dr. Chrissy Frazier Potassium [Moles/Vol] 4.0 mmol/L Normal 3.5-5.1 [facility] Comment on above: Performed By: #### L JULIEN TERRENCE, CMP ####[facility] [address]whr[address] [place] [address]Dr. Chrissy Frazier Protein [Mass/Vol] 7.4 g/dL Normal 6.4-8.2 [facility] Comment on above: Performed By: #### L JULIEN TERRENCE, CMP ####[facility] [address] [place] [address]Dr. Chrissy Frazier Sodium [Moles/Vol] 138 mmol/L Normal 136-145 [facility] Comment on above: Performed By: #### L IPA TERRENCE, CMP ####[facility] L[address]ogttruk[address] [place] [address]Dr. Chrissy Frazier Urea nitrogen [Mass/Vol] 6.0 mg/dL Critically low 7.0-18.0 [facility] Comment on above: Performed By: #### L IPA, TERRENCE, CMP ####[facility] Gwzoz[address] [place], [place] [address]Dr. Chrissy Frazier Urea nitrogen/Creatinine [Mass ratio] 5.4 mg/mg Normal [facility] Comment on above: Performed By: #### L IPA, TERRENCE, CMP ####[facility] Kvsxpeiycs[address] [place], [place] [address]Dr. Chrissy Frazier AMYLASEon 09-02-2022 Amylase [Catalytic activity/Vol] 29 U/L Normal 25-115 [facility] Comment on above: Performed By: #### A MY, CMP, LIPA ####[facility] Mujsythahw[address] [place], [place] [address]Dr. Chrissy Frazier CBC AUTO DIFFon 09-02-2022 BASO # 0.1 103/ul Normal 0.0-0.1 [facility] Comment on above: Performed By: #### C BC ####[facility] Yyhyxpfwoc[address] [place], [place] [address]Dr. Chrissy Frazier Basophils/100 WBC (Bld) 0.4 % Normal 0.2-2.0 [facility] Comment on above: Performed By: #### C BC ####[facility] Vipqwfeqir[address] [place], [place] [address]Dr. Chrissy Frazier EO # 0.1 103/ul Normal 0.0-0.7 [facility] Comment on above: Performed By: #### C BC ####[facility] Mrvugyxbht[address] [place], [place] [address]Dr. Chrissy Frazier Eosinophils/100 WBC (Bld) 0.7 % Critically low 0.9-7.0 [facility] Comment on above: Performed By: #### C BC ####[facility] [address]slzejpifl[address] [place], [place] [address]Dr. Chrissy Frazier Erythrocyte distribution width (RBC) [Ratio] 13.7 % Normal 11.0-15.0 [facility] Comment on above: Performed By: #### C BC ####[facility] [address]duy[address] [place] [address]Dr. Chrissy Frazier Hematocrit (Bld) [Volume fraction] 48.3 % Normal 42.0-54.0 [facility] Comment on above: Performed By: #### C BC ####[facility] F[address]kwphkz[address] [place] [address]Dr. Chrissy Frazier Hemoglobin (Bld) [Mass/Vol] 16.0 g/dL Normal 14.0-18.0 [facility] Comment on above: Performed By: #### C BC ####[facility] Jxvtmdncjx39[address] [place] [address]Dr. Chrissy Freddie IG # 0.09 10e3/ul Critically high 0.00-0.03 [facility] Comment on above: Performed By: #### C BC ####[facility] [address]vbejno[address] [place] [address]Dr. Chrissy Frazier IG % 0.5 % Normal 0.0-0.5 [facility] Comment on above: Performed By: #### C BC ####[facility] [address]jmh[address] [place] [address]Dr. Tishrowan Frazier LYMPH # 3.7 103/ul Normal 1.2-3.8 [facility] Comment on above: Performed By: #### C BC ####[facility] [address]ys[address]uttl[address] [place] [address]Dr. Tishrowan Frazier Lymphocytes/100 WBC (Bld) 21.5 % Normal 20.5-60.0 [facility] Comment on above: Performed By: #### C BC ####[facility] Xrnxqggmjw64[address] [place] [address]Dr. Tishrowan Frazier MANUAL DIFF REQ NO Normal [facility] Comment on above: Performed By: #### C BC ####[facility] Lfbovfwkgd74[address] [place] [address]Dr. Chrissy Freddie MCH (RBC) [Entitic mass] 28.1 pg Normal 25.9-34.0 [facility] Comment on above: Performed By: #### C BC ####[facility] Fmcuqmpltt85[address] [place] [address]Dr. Chrissy Frazier MCHC (RBC) [Mass/Vol] 33.1 g/dL Normal 29.9-35.2 [facility] Comment on above: Performed By: #### C BC ####[facility] [address]zviyeguv[address] [place] [address]Dr. Chrissy Frazier MCV (RBC) [Entitic vol] 84.7 fL Normal 80.0-94.0 [facility] Comment on above: Performed By: #### C BC ####[facility] Rkrdwflfzt90[address] [place] [address]Dr. Chrissy Frazier MONO # 0.7 103/ul Normal 0.3-0.8 [facility] Comment on above: Performed By: #### C BC ####[facility] Zenbcywwss6[address] [place] [address]Dr. Chrissy Frazier Monocytes/100 WBC (Bld) 4.2 % Normal 1.7-12.0 [facility] Comment on above: Performed By: #### C BC ####[facility] [address] [place], [place] [address]Dr. Chrissy Frazier NEUT # 12.4 103/ul Critically high 1.4-6.5 [facility] Comment on above: Performed By: #### C BC ####[facility] Adrflfrqyz23[address] [place] [address]Dr. Chrissy Frazier Neutrophils/100 WBC (Bld) 72.7 % Normal 43.0-75.0 [facility] Comment on above: Performed By: #### C BC ####[facility] Hjlzrkcqca9[address] [place] [address]Dr. Chrissy Frazier Platelet mean volume (Bld) [Entitic vol] 10.9 fL Normal 9.5-13.5 [facility] Comment on above: Performed By: #### C BC ####[facility] Pmhqsenjmr299[address] [place] [address]Dr. Chrissy Freddie PLT 386 103/ul Normal 150-450 [facility] Comment on above: Performed By: #### C BC ####[facility] Hvznwnonem65[address] [place], [place] [address]Wt. Chrissy Frazier RBC 5.70 106/ul Normal 4.70-6.10 [facility] Comment on above: Performed By: #### C BC ####[facility] Lixltfuqbz9[address] [place] [address]Dr. Chrissy Frazier WBC 17.0 103/ul Critically high 4.0-11.0 [facility] Comment on above: Performed By: #### C BC ####[facility] Thpyqqbobu025[address] [place] [address]Dr. Chrissy Frazier Covid-19 PCR (CVDTBH)on 08-21 SARS-CoV-2 (COVID-19) RNA RHIANNON+probe Ql (Unsp spec) Not detected Normal NOT DETECTED [facility] Comment on above: Result Comment: When [...] for this test is supported by the [employer] Manager of Health and Human Service's declaration [...] be used). Performed By: #### C VDTBH ####[facility] Dbanbvldkp39[address] [place] [address]Dr. Chrissy Frazier LACTATE/LACTIC ACIDon 2021 Lactate [Moles/Vol] 7.1 mmol/L Critically high 0.4-1.9 [facility] Comment on above: Performed By: #### L ACT ####[facility] Cwehfhbdjv54[address] [place] [address]Dr. Chrissy Frazier Lactate [Moles/Vol] 8.6 mmol/L Critically high 0.4-1.9 [facility] Comment on above: Performed By: #### L ACT ####[facility] Dundauywfl[address] [place], [place] [address]Dr. Chrissy Frazier LIPASEon 09-02-2022 Lipase [Catalytic activity/Vol] 60.0 U/L Critically low 73.0-393.0 [facility] Comment on above: Performed By: #### A MY, CMP, LIPA ####[facility] Loiuykyend[address] [place], [place] [address]Dr. Chrissy Frazier POINT OF CARE GLUCOSEon 08-21 Glucose [Mass/Vol] 140 mg/dL Critically high 74-106 [facility] Comment on above: Performed By: #### P OCGLUC ####[facility] Rtmxcfodzz[address] [place], [place] [address]Dr. Chrissy Frazier PROF 14(COMP METB)on 022 Albumin [Mass/Vol] 4.3 g/dL Normal 3.4-5.0 [facility] Comment on above: Performed By: #### A MY, CMP, LIPA ####[facility] Uvkqmusmdv[address] [place], [place] [address]Dr. Chrissy Frazier Albumin/Globulin [Mass ratio] 1.0 {ratio} Normal [facility] Comment on above: Performed By: #### A MY, CMP, LIPA ####[facility] [address]xdyqrz[address] [place] [address]Dr. Chrissy Frazier ALP [Catalytic activity/Vol] 82 U/L Normal 46-116 [facility] Comment on above: Performed By: #### A MY, CMP, LIPA ####[facility] Devamynhte[address] [place] [address]Dr. Chrissy Frazier ALT [Catalytic activity/Vol] 48 U/L Normal 16-63 [facility] Comment on above: Performed By: #### A MY, CMP, LIPA ####[facility] Uqtthdaded57[address] [place] [address]Dr. Chrissy Frazier Anion gap [Moles/Vol] 25.3 mmol/L Normal [facility] Comment on above: Performed By: #### A MY, CMP, LIPA ####[facility] Guguthzifn4[address] [place] [address]Dr. Chrissy Frazier AST [Catalytic activity/Vol] 33 U/L Normal 15-37 [facility] Comment on above: Performed By: #### A MY, CMP, LIPA ####[facility] [address]vzickusgk[address] [place], [place] [address]Dr. Chrissy Frazier Bilirubin [Mass/Vol] 0.7 mg/dL Normal 0.2-1.0 [facility] Comment on above: Performed By: #### A MY, CMP, LIPA ####[facility] Vfxdobgbwt[address] [place], [place] [address]Dr. Chrissy Frazier Calcium [Mass/Vol] 9.5 mg/dL Normal 8.5-10.1 [facility] Comment on above: Performed By: #### A MY, CMP, LIPA ####[facility] [address]vwiqim[address] [place], [place] [address]Dr. Chrissy Frazier Chloride [Moles/Vol] 100 mmol/L Normal 98-107 [facility] Comment on above: Performed By: #### A MY, CMP, LIPA ####[facility] K[address]xqff[address]db[address] [place], [place] [address]Dr. Chrissy Frazier CO2 [Moles/Vol] 14.2 mmol/L Critically low 21.0-32.0 [facility] Comment on above: Performed By: #### A MY, CMP, LIPA ####[facility] Gmdbixfyxa[address] [place], [place] [address]Dr. Chrissy Frazier Creatinine [Mass/Vol] 1.70 mg/dL Critically high 0.70-1.30 [facility] Comment on above: Performed By: #### A MY, CMP, LIPA ####[facility] Qbsgggpgzy[address] [place], [place] [address]Dr. Chrissy Frazier EGFR-AF GUINEAN 57 mL/min/1.73m2 Critically low >=60 [facility] Comment on above: Performed By: #### A MY, CMP, LIPA ####[facility] T[address]ubfxktg85[address] [place] [address]Dr. Chrissy Frazier EGFR-NON AF GUINEAN 47 mL/min/1.73m2 Critically low >=60 [facility] Comment on above: Performed By: #### A MY, CMP, LIPA ####[facility] Kgzytuxryv48[address] [place] [address]Dr. Chrissy Frazier Globulin (S) [Mass/Vol] 4.2 g/dL Normal [facility] Comment on above: Performed By: #### A MY, CMP, LIPA ####[facility] Rtttwsohrv34[address] [place] [address]Dr. Chrissy Frazier Glucose [Mass/Vol] 212 mg/dL Critically high 74-106 [facility] Comment on above: Performed By: #### A MY, CMP, LIPA ####[facility] Uxubbxxbrh6[address] [place] [address]Dr. Chrissy Frazier Potassium [Moles/Vol] 3.5 mmol/L Normal 3.5-5.1 [facility] Comment on above: Performed By: #### A MY, CMP, LIPA ####[facility] Sosguuiekv[address] [place] [address]Dr. Chrissy Frazier Protein [Mass/Vol] 8.5 g/dL Critically high 6.4-8.2 [facility] Comment on above: Performed By: #### A MY, CMP, LIPA ####[facility] Oapmjrmxpm[address] [place] [address]Dr. Chrissy Frazier Sodium [Moles/Vol] 136 mmol/L Normal 136-145 [facility] Comment on above: Performed By: #### A MY, CMP, LIPA ####[facility] Ynxwwpmplr26[address] [place] [address]Dr. Chrissy Frazier Urea nitrogen [Mass/Vol] 9.0 mg/dL Normal 7.0-18.0 [facility] Comment on above: Performed By: #### A MY, CMP, LIPA ####[facility] Bowv[address]kjvc[address] [place] [address]Dr. Yilan Frazier Urea nitrogen/Creatinine [Mass ratio] 5.3 mg/mg Normal [facility] Comment on above: Performed By: #### A MY, CMP, LIPA ####[facility] [address]zdsgaxtm[address] [place], [place] [address]Dr. Chrissy Frazier AMYLASEon 07-07-2022 Amylase [Catalytic activity/Vol] 33 U/L Normal 25-115 [facility] Comment on above: Performed By: #### C MP, TERRENCE, BNP, LIPA ####[facility] Qgmzpmtcsd[address] [place], [place] [address]Dr. Chrissy Frazier BNPon 07-07-2022 Natriuretic peptide B (Bld) [Mass/Vol] 29.0 pg/mL Normal <=450.0 [facility] Comment on above: Performed By: #### C MP, TERRENCE, BNP, LIPA ####[facility] Hwwfltenmd[address] [place], [place] [address]Dr. Chrissy Frazier CBC AUTO DIFFon 07-07-2022 BASO # 0.0 103/ul Normal 0.0-0.1 [facility] Comment on above: Performed By: #### C BC ####[facility] Tzyksfbhgp[address] [place], [place] [address]Dr. Chrissy Frazier Basophils/100 WBC (Bld) 0.4 % Normal 0.2-2.0 [facility] Comment on above: Performed By: #### C BC ####[facility] Pggccwnasj[address] [place], [place] [address]Dr. Chrsisy Frazier EO # 0.3 103/ul Normal 0.0-0.7 [facility] Comment on above: Performed By: #### C BC ####[facility] Lxllplgsro9404[address] [place], [place] [address]Dr. Chrissy Frazier Eosinophils/100 WBC (Bld) 3.0 % Normal 0.9-7.0 [facility] Comment on above: Performed By: #### C BC ####[facility] Dmvonokmmw[address] [place], [place] [address]Dr. Chrissy Frazier Erythrocyte distribution width (RBC) [Ratio] 14.0 % Normal 11.0-15.0 [facility] Comment on above: Performed By: #### C BC ####[facility] Szedekghdd40[address] [place] [address]DrNancy Frazier Hematocrit (Bld) [Volume fraction] 42.8 % Normal 42.0-54.0 [facility] Comment on above: Performed By: #### C BC ####[facility] Kgigmxsael7916 [place] [address]DrNancy Frazier Hemoglobin (Bld) [Mass/Vol] 14.3 g/dL Normal 14.0-18.0 [facility] Comment on above: Result Comment: IV F LUIDS RUNNING Performed By: #### C BC ####[facility] Xmmmndnmyj[address] [place], [place] [address]DrNancy Frazier IG # 0.05 10e3/ul Critically high 0.00-0.03 [facility] Comment on above: Performed By: #### C BC ####[facility] Yxdwpdepoq90[address] [place], [place] [address]DrNancy Frazier IG % 0.5 % Normal 0.0-0.5 [facility] Comment on above: Performed By: #### C BC ####[facility] Boqdpacnaf[address] [place], [place] [address]DrNancy Frazier LYMPH # 2.4 103/ul Normal 1.2-3.8 [facility] Comment on above: Performed By: #### C BC ####[facility] Wphwikkcgr[address] [place], [place] [address]DrNancy Frazier Lymphocytes/100 WBC (Bld) 25.5 % Normal 20.5-60.0 [facility] Comment on above: Performed By: #### C BC ####[facility] Okvrhvqfwg[address] [place], [place] [address]DrNancy Frazier MANUAL DIFF REQ NO Normal [facility] Comment on above: Performed By: #### C BC ####[facility] Lxjqeqkcew99[address] [place] [address]DrNancy Frazier MCH (RBC) [Entitic mass] 28.5 pg Normal 25.9-34.0 [facility] Comment on above: Performed By: #### C BC ####[facility] Ikyoazzpvj87[address] [place] [address]Dr. Chrissy Frazier MCHC (RBC) [Mass/Vol] 33.4 g/dL Normal 29.9-35.2 [facility] Comment on above: Performed By: #### C BC ####[facility] Njcgeyygqa075[address] [place] [address]Dr. Chrissy Frazier MCV (RBC) [Entitic vol] 85.3 fL Normal 80.0-94.0 [facility] Comment on above: Performed By: #### C BC ####[facility] Aoqhoggflm4[address] [place], [place] [address]DrNancy Frazier MONO # 0.7 103/ul Normal 0.3-0.8 [facility] Comment on above: Performed By: #### C BC ####[facility] Eyjqdtmqxs[address] [place], [place] [address]Dr. Chrissy Frazier Monocytes/100 WBC (Bld) 7.8 % Normal 1.7-12.0 [facility] Comment on above: Performed By: #### C BC ####[facility] Hqbdeectxy[address] [place], [place] [address]Dr. Chrissy Frazier NEUT # 5.8 103/ul Normal 1.4-6.5 [facility] Comment on above: Performed By: #### C BC ####[facility] Ixjqrivqli14[address] [place], [place] [address]Dr. Chrissy Frazier Neutrophils/100 WBC (Bld) 62.8 % Normal 43.0-75.0 [facility] Comment on above: Performed By: #### C BC ####[facility] Tfqyzfweno64[address] [place], [place] [address]Dr. Chrissy Frazier Platelet mean volume (Bld) [Entitic vol] 10.8 fL Normal 9.5-13.5 [facility] Comment on above: Performed By: #### C BC ####[facility] Cgivnkpmbk[address] [place], [place] [address]Dr. Chrissy Frazier PLT 310 103/ul Normal 150-450 [facility] Comment on above: Performed By: #### C BC ####[facility] N[address]ldgwauq[address] [place] [address]Dr. Chrissy Frazier RBC 5.02 106/ul Normal 4.70-6.10 [facility] Comment on above: Performed By: #### C BC ####[facility] Zjsukgxeyc9448 [place], [place] [address]Ld. Chrissy Frazier WBC 9.3 103/ul Normal 4.0-11.0 [facility] Comment on above: Performed By: #### C BC ####[facility] Qdtsdsfokt15[address] [place] [address]Dr. Tishrowan Freddie CULTURE URINEon 07-07-2022 CULTURE URINE Culture Observations: NO GROWTH. Normal [facility] Comment on above: Performed By: #### U RCX ####[facility] Frleimeiqh44[address] [place] [address]Dr. Chrissy Frazier DRUG SCREEN RAPID (URINE)on 07-07-2022 AMP Negative Normal NEGATIVE [facility] Comment on above: Performed By: #### D RUGRPD ####[facility] Bmwjmcclsr68[address] [place] [address]Dr. Chrissy Frazier BAR Negative Normal NEGATIVE [facility] Comment on above: Performed By: #### D RUGRPD ####[facility] Qhllxgbuab4457 [place] [address]Dr. Chrissy Frazier BUP Negative Normal NEGATIVE [facility] Comment on above: Performed By: #### D RUGRPD ####[facility] Zvnrgmwygj1787 [place] [address]Dr. Chrissy Frazier BZO Positive Abnormal NEGATIVE [facility] Comment on above: Performed By: #### D RUGRPD ####[facility] Sevxyzxzir025[address] [place] [address]Dr. Chrissy Frazier LAUREN Negative Normal NEGATIVE [facility] Comment on above: Performed By: #### D RUGRPD ####[facility] Wfitqawlns67[address] [place] [address]Dr. Chrissy Frazier CUT-OFFS SEE BELOW Normal [facility] Comment on above: Result Comment: AMP (Amphetamine): 500ng/mL, BAR (Barbituates): 200 ng/mL, BZO (Benzodiazepines): 150 ng/mL, BUP (Buprenorphine): 10 ng/mL, LAUREN (Cocaine): 150 ng/mL, mAMP (Methamphetamine): 500 ng/mL, MTD (Methadone): 200 ng/mL, OPI (Opiates): 100 ng/mL, OXY (Oxycodone): 100 ng/mL, PCP (Phencyclidine): 25 ng/mL, PPX (Propoxyphene): 300 ng/mL, THC (Cannabinoids): 50 ng/mL, TCA (Trycyclic Antidepressants): 300 ng/mL Performed By: #### D RUGRPD ####[facility] Onpdloqdhg[address] [place], [place] [address]Dr. [facility] DRUG CUT HEADER DRUG CLASS TEST SYSTEM CUT-OFF CONCENTRATIONS ARE FOLLOWS: Normal [facility] Comment on above: Performed By: #### D RUGRPD ####[facility] Ubdstdimuv[address] [place], [place] [address]Dr. Tishrowan [facility] mAMP Negative Normal NEGATIVE [facility] Comment on above: Performed By: #### D RUGRPD ####[facility] Leoklxkixk48[address] [place], [place] [address]Dr. Chrissy [facility] MTD Negative Normal NEGATIVE [facility] Comment on above: Performed By: #### D RUGRPD ####[facility] Qmtjuehpib[address] [place], [place] [address]Dr. Chrissy [facility] OPI Negative Normal NEGATIVE [facility] Comment on above: Performed By: #### D RUGRPD ####[facility] Qdtmscdzzy[address] [place], [place] [address]Dr. Chrissy Frazier OXY Negative Normal NEGATIVE [facility] Comment on above: Performed By: #### D RUGRPD ####[facility] [address]wjwqnwqap[address] [place], [place] [address]Dr. Chrissy [facility] PCP Negative Normal NEGATIVE [facility] Comment on above: Performed By: #### D RUGRPD ####[facility] [address]yynxo[address] [place], [place] [address]Dr. Chrissy Freddie PPX Negative Normal NEGATIVE [facility] Comment on above: Performed By: #### D RUGRPD ####[facility] Uh[address]ivlrmv[address] [place] [address]Dr. Chrissy Freddie TCA Positive Abnormal NEGATIVE [facility] Comment on above: Performed By: #### D RUGRPD ####[facility] Hlmsljwncj7[address] [place] [address]Dr. Chrissy Freddie THC Positive Abnormal NEGATIVE [facility] Comment on above: Performed By: #### D RUGRPD ####[facility] Bzyjsruxdy65[address] [place] [address]Dr. Tishrowan Frazier LIPASEon 07-07-2022 Lipase [Catalytic activity/Vol] 118.0 U/L Normal 73.0-393.0 [facility] Comment on above: Performed By: #### L IPA ####[facility] Rcavdscxij[address] [place], [place] [address]Dr. Chrissy Frazier Lipase [Catalytic activity/Vol] 114.0 U/L Normal 73.0-393.0 [facility] Comment on above: Performed By: #### C MP, TERRENCE, BNP, LIPA ####[facility] Eynxzmurtu[address] [place], [place] [address]Dr. Chrissy Frazier PROF 14(COMP METB)on 022 Albumin [Mass/Vol] 3.4 g/dL Normal 3.4-5.0 [facility] Comment on above: Performed By: #### C MP, TERRENCE, BNP, LIPA ####[facility] [address]keqjqleom[address] [place] [address]Dr. Chrissy Frazier Albumin/Globulin [Mass ratio] 1.1 {ratio} Normal [facility] Comment on above: Performed By: #### C MP, TERRENCE, BNP, LIPA ####[facility] Ijwgyfibrg50[address] [place] [address]Dr. Chrissy Frazier ALP [Catalytic activity/Vol] 68 U/L Normal 46-116 [facility] Comment on above: Performed By: #### C MP, TERRENCE, BNP, LIPA ####[facility] Dxrzixiyke60[address] [place] [address]Dr. Chrissy Frazier ALT [Catalytic activity/Vol] 93 U/L Critically high 16-63 [facility] Comment on above: Performed By: #### C MP, TERRENCE, BNP, LIPA ####[facility] Bwyxzshsxf12[address] [place] [address]Dr. Chrissy Frazier Anion gap [Moles/Vol] 14.4 mmol/L Normal [facility] Comment on above: Performed By: #### C MP, TERRENCE, BNP, LIPA ####[facility] Mowibpxgni06[address] [place] [address]Dr. Chrissy Frazier AST [Catalytic activity/Vol] 33 U/L Normal 15-37 [facility] Comment on above: Performed By: #### C MP, TERRENCE, BNP, LIPA ####[facility] Vrknhtdocj54[address] [place] [address]Dr. Chrissy Frazier Bilirubin [Mass/Vol] 0.9 mg/dL Normal 0.2-1.0 [facility] Comment on above: Performed By: #### C MP, TERRENCE, BNP, LIPA ####[facility] [address]osxvumy[address] [place], [place] [address]Dr. Chrissy Frazier Calcium [Mass/Vol] 8.2 mg/dL Critically low 8.5-10.1 [facility] Comment on above: Performed By: #### C MP, TERRENCE, BNP, LIPA ####[facility] [facility] [address] [place], [place] [address]Dr. Chrissy Frazier Chloride [Moles/Vol] 103 mmol/L Normal 98-107 [facility] Comment on above: Performed By: #### C MP, TERRENCE, BNP, LIPA ####[facility] [address]ymbvpxkou[address] [place], [place] [address]Dr. Chrissy Frazier CO2 [Moles/Vol] 22.9 mmol/L Normal 21.0-32.0 [facility] Comment on above: Performed By: #### C MP, TERRENCE, BNP, LIPA ####[facility] Wbjzaz[address]qop[address] [place], [place] [address]Dr. Chrissy Frazier Creatinine [Mass/Vol] 1.07 mg/dL Normal 0.70-1.30 [facility] Comment on above: Performed By: #### C MP, TERRENCE, BNP, LIPA ####[facility] [address] [place] [address]Dr. Chrissy Frazier EGFR-AF GUINEAN >60 Normal >=60 [facility] Comment on above: Performed By: #### C MP, TERRENCE, BNP, LIPA ####[facility] [address]vwirqdw[address] [place] [address]Dr. Chrissy Frazier EGFR-NON AF GUINEAN >60 Normal >=60 [facility] Comment on above: Performed By: #### C MP, TERRENCE, BNP, LIPA ####[facility] Vgpyqjvndv[address] [place] [address]Dr. Chrissy Frazier Globulin (S) [Mass/Vol] 3.2 g/dL Normal [facility] Comment on above: Performed By: #### C MP, TERRENCE, BNP, LIPA ####[facility] Razwueqinc[address] [place], [place] [address]Dr. Chrissy Frazier Glucose [Mass/Vol] 96 mg/dL Normal 74-106 The [facility] Comment on above: Performed By: #### C MP, TERRENCE, BNP, LIPA ####[facility] [address]zmlhxvcx[address] [place] [address]Dr. Chrissy Frazier Potassium [Moles/Vol] 3.3 mmol/L Critically low 3.5-5.1 [facility] Comment on above: Performed By: #### C MP, TERRENCE, BNP, LIPA ####[facility] Ronsamuyhl[address] [place] [address]Dr. Crhissy Frazier Protein [Mass/Vol] 6.6 g/dL Normal 6.4-8.2 [facility] Comment on above: Performed By: #### C MP, TERRENCE, BNP, LIPA ####[facility] Fqchmncmsm[address] [place] [address]Dr. Chrissy Frazier Sodium [Moles/Vol] 137 mmol/L Normal 136-145 [facility] Comment on above: Performed By: #### C MP, TERRENCE, BNP, LIPA ####[facility] Txxc[address]kmn[address] [place], [place] [address]Dr. Chrissy Frazier Urea nitrogen [Mass/Vol] 13.0 mg/dL Normal 7.0-18.0 [facility] Comment on above: Performed By: #### C MP, TERRENCE, BNP, LIPA ####[facility] Dwljuuedho[address] [place], [place] [address]Dr. Chrissy Frazier Urea nitrogen/Creatinine [Mass ratio] 12.1 mg/mg Normal [facility] Comment on above: Performed By: #### C MP, TERRENCE, BNP, LIPA ####[facility] Affpfoqoeu[address] [place], [place] [address]Dr. Chrissy Frazier UA RANDOM W/MICROSCOPICon BACTERIA TRACE Abnormal NONE SEEN [facility] Comment on above: Performed By: #### U AMIC ####[facility] Shjjpvillz[address] [place], [place] [address]Dr. Chrissy Frazier Bilirubin Ql (U) Negative Normal NEGATIVE [facility] Comment on above: Performed By: #### U AMIC ####[facility] Zsvaalwpau[address] [place], [place] [address]Dr. Chrissy Frazier CAST NONE SEEN Normal NONE SEEN [facility] Comment on above: Performed By: #### U AMIC ####[facility] Gvlitodqkc[address] [place], [place] [address]Dr. Chrissy Frazier Clarity (U) CLEAR Normal CLEAR [facility] Comment on above: Performed By: #### U AMIC ####[facility] Xlrkybjazh6[address] [place], [place] [address]Dr. Chrissy Frazier Color (U) YELLOW Normal YELLOW [facility] Comment on above: Performed By: #### U AMIC ####[facility] Aqrarhzgsy32[address] [place], [place] [address]Dr. Chrissy Frazier Crystals LM Nom (Urine sed) SEEN Abnormal NONE SEEN [facility] Comment on above: Performed By: #### U AMIC ####[facility] Gajevsabct9[address] [place], [place] [address]Dr. Chrissy Frazier Epithelial cells LM Ql (Urine sed) RARE Normal NONE SEEN /RARE [facility] Comment on above: Performed By: #### U AMIC ####[facility] [address]bsxjikw[address] [place] [address]Dr. Chrissy Frazier Glucose Ql (U) Negative Normal NEGATIVE The [facility] Comment on above: Performed By: #### U AMIC ####[facility] Lfjkzujdgc5[address] [place], [place] [address]Dr. Chrissy Frazier Hemoglobin Ql (U) Negative Normal NEGATIVE The [facility] Comment on above: Performed By: #### U AMIC ####[facility] Dlhfhgovif[address] [place], [place] [address]Dr. Chrissy Frazier Ketones Ql (U) 15 mg/dl Abnormal NEGATIVE [facility] Comment on above: Performed By: #### U AMIC ####[facility] Glxoomhdrm[address] [place], [place] [address]Dr. Chrissy Frazier LEUKOCYTES Negative Normal NEGATIVE [facility] Comment on above: Performed By: #### U AMIC ####[facility] Mvcwdcmgyc[address] [place], [place] [address]Dr. Chrissy Frazier MUCOUS NONE SEEN Normal NONE SEEN [facility] Comment on above: Performed By: #### U AMIC ####[facility] Jvoflusuqd[address] [place], [place] [address]Dr. Chrissy Frazier Nitrite Ql (U) Negative Normal NEGATIVE [facility] Comment on above: Performed By: #### U AMIC ####[facility] Tymfzsdmam[address] [place], [place] [address]Dr. Chrissy Frazier pH (U) 6.0 [pH] Normal 5-9 [facility] Comment on above: Performed By: #### U AMIC ####[facility] Tzsquwucqa[address] [place], [place] [address]Dr. Chrissy Frazier RBC 0-2 Normal 0-2 [facility] Comment on above: Performed By: #### U AMIC ####[facility] Yifkijprot[address] [place], [place] [address]Dr. Chrissy Frazier SPEC GRAVITY 1.015 Normal 1.005-<=1.025 [facility] Comment on above: Performed By: #### U AMIC ####[facility] Y[address]khjolrx[address] [place] [address]Dr. Chrissy Frazier UA PROTEIN Negative Normal NEGATIVE/ TRACE [facility] Comment on above: Performed By: #### U AMIC ####[facility] Ckwfjojguk[address] [place] [address]Dr. Chrissy Frazier URIC ACID CRYSTALS RARE Normal [facility] Comment on above: Performed By: #### U AMIC ####[facility] Ozlympnkxs5206 [place] [address]Dr. Chrissy Freddie Urobilinogen Qn (U) 0.2 {Estrellita'U}/dL Normal 0.2 - 1. 0 [facility] Comment on above: Performed By: #### U AMIC ####[facility] Isbzvgmzrh[address] [place], [place] [address]Dr. Tishrowan Frazier WBC 0-2 Abnormal NONE SEEN [facility] Comment on above: Performed By: #### U AMIC ####[facility] Pnzwrydhfr272[address] [place], [place] [address]Dr. Chrissy Freddie AMYLASEon 07-06-2022 Amylase [Catalytic activity/Vol] 37 U/L Normal 25-115 [facility] Comment on above: Performed By: #### C MP, LIPA, TERRENCE ####[facility] Rsjixcaojl[address] [place], [place] [address]Dr. Chrissy Frazier CBC AUTO DIFFon 07-06-2022 BASO # 0.1 103/ul Normal 0.0-0.1 [facility] Comment on above: Performed By: #### C BC ####[facility] Eggtdvbrxv9[address] [place], [place] [address]Dr. Tishrowan Frazier Basophils/100 WBC (Bld) 0.4 % Normal 0.2-2.0 [facility] Comment on above: Performed By: #### C BC ####[facility] Hcrowuszlf[address] [place], [place] [address]Dr. Chrissy Frazier EO # 0.1 103/ul Normal 0.0-0.7 [facility] Comment on above: Performed By: #### C BC ####[facility] Jjvuxzieze[address] [place] [address]Dr. Chrissy Frazier Eosinophils/100 WBC (Bld) 0.5 % Critically low 0.9-7.0 [facility] Comment on above: Performed By: #### C BC ####[facility] Afieytebfh[address] [place], [place] [address]Dr. Chrissy Frazier Erythrocyte distribution width (RBC) [Ratio] 13.6 % Normal 11.0-15.0 [facility] Comment on above: Performed By: #### C BC ####[facility] X[address]upqjxro[address] [place], [place] [address]Dr. Chrissy Frazier Hematocrit (Bld) [Volume fraction] 47.9 % Normal 42.0-54.0 [facility] Comment on above: Performed By: #### C BC ####[facility] Azosluocqk639[address] [place], [place] [address]Dr. Chrissy Frazier Hemoglobin (Bld) [Mass/Vol] 16.4 g/dL Normal 14.0-18.0 [facility] Comment on above: Performed By: #### C BC ####[facility] Uxgirxguln[address] [place], [place] [address]Dr. Chrissy Frazier IG # 0.09 10e3/ul Critically high 0.00-0.03 [facility] Comment on above: Performed By: #### C BC ####[facility] Piyndgdgwx396[address] [place], [place] [address]Dr. Chrissy Frazier IG % 0.6 % Critically high 0.0-0.5 [facility] Comment on above: Performed By: #### C BC ####[facility] Grnoptdysi9[address] [place], [place] [address]Dr. Chrissy Frazier LYMPH # 2.5 103/ul Normal 1.2-3.8 [facility] Comment on above: Performed By: #### C BC ####[facility] Zzskctnhyo[address] [place], [place] [address]Dr. Chrissy Frazier Lymphocytes/100 WBC (Bld) 16.7 % Critically low 20.5-60.0 [facility] Comment on above: Performed By: #### C BC ####[facility] [address]ygxyej[address] [place] [address]DrNancy Frazier MANUAL DIFF REQ NO Normal [facility] Comment on above: Performed By: #### C BC ####[facility] Yczvlfsylb09[address] [place] [address]DrNancy Frazier MCH (RBC) [Entitic mass] 28.1 pg Normal 25.9-34.0 [facility] Comment on above: Performed By: #### C BC ####[facility] Hbzgvzpmtv[address] [place], [place] [address]DrNancy Frazier MCHC (RBC) [Mass/Vol] 34.2 g/dL Normal 29.9-35.2 [facility] Comment on above: Performed By: #### C BC ####[facility] Zixayaiwms[address] [place], [place] [address]DrNancy Frazier MCV (RBC) [Entitic vol] 82.2 fL Normal 80.0-94.0 [facility] Comment on above: Performed By: #### C BC ####[facility] Nazjdipxjk[address] [place], [place] [address]DrNancy Frazier MONO # 1.0 103/ul Critically high 0.3-0.8 [facility] Comment on above: Performed By: #### C BC ####[facility] Hrtstxvvkr[address] [place], [place] [address]DrNancy Frazier Monocytes/100 WBC (Bld) 6.7 % Normal 1.7-12.0 [facility] Comment on above: Performed By: #### C BC ####[facility] Ncgdulhoxe[address] [place], [place] [address]DrNancy Frazier NEUT # 11.3 103/ul Critically high 1.4-6.5 [facility] Comment on above: Performed By: #### C BC ####[facility] Isyaopvutp[address] [place], [place] [address]DrNancy Frazier Neutrophils/100 WBC (Bld) 75.1 % Critically high 43.0-75.0 [facility] Comment on above: Performed By: #### C BC ####[facility] [address]xavpik[address] [place] [address]Dr. Chrissy Frazier Platelet mean volume (Bld) [Entitic vol] 10.6 fL Normal 9.5-13.5 [facility] Comment on above: Performed By: #### C BC ####[facility] Foltogodmt[address] [place] [address]Dr. Chrissy Frazier PLT 416 103/ul Normal 150-450 [facility] Comment on above: Performed By: #### C BC ####[facility] Pexvxlcmrn65[address] [place] [address]Dr. Chrissy Frazier RBC 5.83 106/ul Normal 4.70-6.10 [facility] Comment on above: Performed By: #### C BC ####[facility] Jonnswkgor4152 [place] [address]Dr. Chrissy Frazier WBC 15.0 103/ul Critically high 4.0-11.0 [facility] Comment on above: Performed By: #### C BC ####[facility] Ivmtdceugc7[address] [place] [address]Dr. Chrissy Frazier [facility]21 SARS-CoV-2 (COVID-19) RNA RHIANNON+probe Ql (Unsp spec) Not detected Normal NOT DETECTED [facility] Comment on above: Result Comment: When [...] for this test is supported by the [employer] Manager of Health and Human Service's declaration [...] be used). Performed By: #### C VDTBH ####[facility] [address]eg[address]wurso[address] [place] [address]Dr. Chrissy Frazier LIPASEon 07-06-2022 Lipase [Catalytic activity/Vol] 130.0 U/L Normal 73.0-393.0 [facility] Comment on above: Performed By: #### C OSWALD ADAIR, TERRENCE ####[facility] Xibowlgxzk[address] [place] [address]Dr. Chrissy Frazier PROF 14(COMP METB)on 022 Albumin [Mass/Vol] 4.4 g/dL Normal 3.4-5.0 [facility] Comment on above: Performed By: #### C MANA LIPA, TERRENCE ####[facility] I[address]stqshvby[address] [place], [place] [address]Dr. Chrissy Frazier Albumin/Globulin [Mass ratio] 1.1 {ratio} Normal [facility] Comment on above: Performed By: #### C OSWALD ADAIR TERRENCE ####[facility] Tcnmkkzeqc[address] [place], [place] [address]Dr. Chrissy Frazier ALP [Catalytic activity/Vol] 83 U/L Normal 46-116 [facility] Comment on above: Performed By: #### C MANA LIPA, TERRENCE ####[facility] Xdirgjdjxk44[address] [place] [address]Dr. Chrissy Frazier ALT [Catalytic activity/Vol] 107 U/L Critically high 16-63 [facility] Comment on above: Performed By: #### C TESSA ADAIRA, TERRENCE ####[facility] Ymywzfjnzy00[address] [place] [address]Dr. Chrissy Frazier Anion gap [Moles/Vol] 20.5 mmol/L Normal [facility] Comment on above: Performed By: #### C MANA LIPA, TERRENCE ####[facility] Thqnfajmfj[address] [place], [place] [address]Dr. Chrissy Frazier AST [Catalytic activity/Vol] 46 U/L Critically high 15-37 [facility] Comment on above: Performed By: #### C OSWALD ADAIR, TERRENCE ####[facility] Fxqvsfzlqh67[address] [place] [address]Dr. Chrissy Frazier Bilirubin [Mass/Vol] 1.2 mg/dL Critically high 0.2-1.0 [facility] Comment on above: Performed By: #### C TESSA ADAIRA, TERRENCE ####[facility] [address]viqy[address] [place], [place] [address]Dr. Chrissy Frazier Calcium [Mass/Vol] 9.1 mg/dL Normal 8.5-10.1 [facility] Comment on above: Performed By: #### C MANA LIPA, TERRENCE ####[facility] Kqxedqwkui4[address] [place], [place] [address]Dr. Chrissy Frazier Chloride [Moles/Vol] 100 mmol/L Normal 98-107 [facility] Comment on above: Performed By: #### C TESSA ADAIRA, TERRENCE ####[facility] Fqnnwxeaqh[address] [place], [place] [address]Dr. Chrissy Frazier CO2 [Moles/Vol] 18.6 mmol/L Critically low 21.0-32.0 [facility] Comment on above: Performed By: #### C MANA LIPA, TERRENCE ####[facility] Jpqphtmqjl6317[address] [place], [place] [address]Dr. Chrissy Frazier Creatinine [Mass/Vol] 1.44 mg/dL Critically high 0.70-1.30 [facility] Comment on above: Performed By: #### C MANA LIPA, TERRENCE ####[facility] Xnrtbntvjg[address] [place], [place] [address]Dr. Chrissy Frazier EGFR-AF GUINEAN >60 Normal >=60 [facility] Comment on above: Performed By: #### C MP, LIPA, TERRENCE ####[facility] Jfgwncoinu4616[address] [place], [place] [address]Dr. Chrissy Frazier EGFR-NON AF GUINEAN 57 mL/min/1.73m2 Critically low >=60 [facility] Comment on above: Performed By: #### C MANA LIPA, TERRENCE ####[facility] Rnlpysozjs[address] [place] [address]Dr. Chrissy Frazier Globulin (S) [Mass/Vol] 4.0 g/dL Normal [facility] Comment on above: Performed By: #### C MANA LIPA, TERRENCE ####[facility] Ztrxuykcqr39[address] [place] [address]Dr. Chrissy Frazier Glucose [Mass/Vol] 117 mg/dL Critically high 74-106 [facility] Comment on above: Performed By: #### C MANA LIPA, TERRENCE ####[facility] Ftjiomgreb[address] [place], [place] [address]Dr. Chrissy Frazier Potassium [Moles/Vol] 3.1 mmol/L Critically low 3.5-5.1 [facility] Comment on above: Performed By: #### C MANA LIPA, TERRENCE ####[facility] Kptgvuwjro[address] [place], [place] [address]Dr. Chrissy Frazier Protein [Mass/Vol] 8.4 g/dL Critically high 6.4-8.2 [facility] Comment on above: Performed By: #### C TESSA ADAIRA, TERRENCE ####[facility] Qwvvuzvsju5[address] [place], [place] [address]Dr. Chrissy Frazier Sodium [Moles/Vol] 136 mmol/L Normal 136-145 [facility] Comment on above: Performed By: #### C MANA LIPA, TERRENCE ####[facility] Xyzkqbcegm8[address] [place], [place] [address]Dr. Chrissy Frazier Urea nitrogen [Mass/Vol] 15.0 mg/dL Normal 7.0-18.0 [facility] Comment on above: Performed By: #### C MANA LIPA, TERRENCE ####[facility] Vclnyiiwvp[address] [place], [place] [address]Dr. Chrissy Frazier Urea nitrogen/Creatinine [Mass ratio] 10.4 mg/mg Normal [facility] Comment on above: Performed By: #### C MANA LIPA, TERRENCE ####[facility] Iszyyubodm[address] [place] [address]Dr. Chrissy Freddie CBC AUTO DIFFon 07-05-2022 BASO # 0.0 103/ul Normal 0.0-0.1 [facility] Comment on above: Performed By: #### C BC ####[facility] [address]gbv[address] [place], [place] [address]Dr. Chrissy Frazier Basophils/100 WBC (Bld) 0.3 % Normal 0.2-2.0 [facility] Comment on above: Performed By: #### C BC ####[facility] Yyvdsskjwm[address] [place], [place] [address]Dr. Chrissy Frazier EO # 0.2 103/ul Normal 0.0-0.7 [facility] Comment on above: Performed By: #### C BC ####[facility] Ykoypzggzz[address] [place], [place] [address]Dr. Chrissy Frazier Eosinophils/100 WBC (Bld) 1.5 % Normal 0.9-7.0 [facility] Comment on above: Performed By: #### C BC ####[facility] Ujmqkhxpkk[address] [place], [place] [address]Dr. Tishrowan Frazier Erythrocyte distribution width (RBC) [Ratio] 13.9 % Normal 11.0-15.0 [facility] Comment on above: Performed By: #### C BC ####[facility] Kmaxjxqpeu[address] [place], [place] [address]Dr. Chrissy Frazier Hematocrit (Bld) [Volume fraction] 44.5 % Normal 42.0-54.0 [facility] Comment on above: Performed By: #### C BC ####[facility] Yjzddwlnjm[address] [place], [place] [address]Dr. Chrissy Frazier Hemoglobin (Bld) [Mass/Vol] 14.8 g/dL Normal 14.0-18.0 [facility] Comment on above: Performed By: #### C BC ####[facility] Csvbbatipg86[address] [place], [place] [address]Dr. Chrissy Frazier IG # 0.05 10e3/ul Critically high 0.00-0.03 [facility] Comment on above: Performed By: #### C BC ####[facility] Cproxdsldx026[address] [place] [address]Dr. Chrissy Frazier IG % 0.4 % Normal 0.0-0.5 [facility] Comment on above: Performed By: #### C BC ####[facility] Zugbofcsss49[address] [place] [address]Dr. Chrissy Frazier LYMPH # 3.3 103/ul Normal 1.2-3.8 [facility] Comment on above: Performed By: #### C BC ####[facility] Rwbsqmuxck3204 [place] [address]Dr. Chrissy Frazier Lymphocytes/100 WBC (Bld) 29.1 % Normal 20.5-60.0 [facility] Comment on above: Performed By: #### C BC ####[facility] Wlpbxspshn[address] [place] [address]Dr. Chrissy Frazier MANUAL DIFF REQ NO Normal [facility] Comment on above: Performed By: #### C BC ####[facility] C[address]lanojjl[address] [place] [address]Dr. Chrissy Frazier MCH (RBC) [Entitic mass] 28.2 pg Normal 25.9-34.0 [facility] Comment on above: Performed By: #### C BC ####[facility] Jmcihjslsd8936 [place] [address]Dr. Chrissy Frazier MCHC (RBC) [Mass/Vol] 33.3 g/dL Normal 29.9-35.2 [facility] Comment on above: Performed By: #### C BC ####[facility] Zheriwoyuc47[address] [place] [address]Dr. Chrissy Frazier MCV (RBC) [Entitic vol] 84.9 fL Normal 80.0-94.0 [facility] Comment on above: Performed By: #### C BC ####[facility] Bvajpknwbo[address] [place] [address]Dr. Chrissy Freddie MONO # 0.6 103/ul Normal 0.3-0.8 [facility] Comment on above: Performed By: #### C BC ####[facility] Qpwfmnpeab2841 [place] [address]Dr. Chrissy Farzier Monocytes/100 WBC (Bld) 5.4 % Normal 1.7-12.0 [facility] Comment on above: Performed By: #### C BC ####[facility] Ucenrrnbic0683 [place] [address]Dr. Chrissy Frazier NEUT # 7.1 103/ul Critically high 1.4-6.5 [facility] Comment on above: Performed By: #### C BC ####[facility] Enmawbgmrf65[address] [place] [address]Dr. Chrissy Frazier Neutrophils/100 WBC (Bld) 63.3 % Normal 43.0-75.0 [facility] Comment on above: Performed By: #### C BC ####[facility] Krzdxtnnam[address] [place] [address]Dr. Chrissy Frazier Platelet mean volume (Bld) [Entitic vol] 9.9 fL Normal 9.5-13.5 [facility] Comment on above: Performed By: #### C BC ####[facility] Dgtpexkdnc[address] [place] [address]Dr. Chrissy Freddie PLT 339 103/ul Normal 150-450 [facility] Comment on above: Performed By: #### C BC ####[facility] Afgoodacjw32[address] [place] [address]Dr. Tishrowan Frazier RBC 5.24 106/ul Normal 4.70-6.10 [facility] Comment on above: Performed By: #### C BC ####[facility] Uvwehczxcr79[address] [place] [address]Dr. Chrissy Frazier WBC 11.2 103/ul Critically high 4.0-11.0 [facility] Comment on above: Performed By: #### C BC ####[facility] Icixpxyivi[address] [place] [address]Dr. Chrissy Frazier PROF 14(COMP METB)on 022 Albumin [Mass/Vol] 3.8 g/dL Normal 3.4-5.0 [facility] Comment on above: Performed By: #### C MP ####[facility] Cgxfrnnhxh2625 [place] [address]Dr. Chrissy Freddie Albumin/Globulin [Mass ratio] 1.1 {ratio} Normal [facility] Comment on above: Performed By: #### C MP ####[facility] Fvithlungt3445 [place] [address]Dr. Chrissy Freddie ALP [Catalytic activity/Vol] 67 U/L Normal 46-116 [facility] Comment on above: Performed By: #### C MP ####[facility] Ughkcjwddb4[address] [place] [address]Dr. Chrissy Freddie ALT [Catalytic activity/Vol] 75 U/L Critically high 16-63 [facility] Comment on above: Performed By: #### C MP ####[facility] Ggiosicmim[address] [place] [address]Dr. Chrissy Frazier Anion gap [Moles/Vol] 14.3 mmol/L Normal [facility] Comment on above: Performed By: #### C MP ####[facility] Xowkausfbl[address] [place] [address]Dr. Chrissy Freddie AST [Catalytic activity/Vol] 40 U/L Critically high 15-37 [facility] Comment on above: Performed By: #### C MP ####[facility] Sbxpkubxnl0462 [place] [address]Dr. Chrissy Frazier Bilirubin [Mass/Vol] 0.9 mg/dL Normal 0.2-1.0 [facility] Comment on above: Performed By: #### C MP ####[facility] Bbqnmjhhlf06[address] [place] [address]Dr. Chrissy Frazier Calcium [Mass/Vol] 8.4 mg/dL Critically low 8.5-10.1 [facility] Comment on above: Performed By: #### C MP ####[facility] Cpnyqvlezt025[address] [place] [address]Dr. Chrissy Frazier Chloride [Moles/Vol] 104 mmol/L Normal 98-107 [facility] Comment on above: Performed By: #### C MP ####[facility] Whfhskzevd5285 [place] [address]Dr. Chrissy Frazier CO2 [Moles/Vol] 24.1 mmol/L Normal 21.0-32.0 [facility] Comment on above: Performed By: #### C MP ####[facility] Gartvbxlqv8[address] [place] [address]Dr. Chrissy Frazier Creatinine [Mass/Vol] 1.11 mg/dL Normal 0.70-1.30 [facility] Comment on above: Performed By: #### C MP ####[facility] Ovcrnhhxot01[address] [place] [address]Dr. Chrissy Frazier EGFR-AF GUINEAN >60 Normal >=60 [facility] Comment on above: Performed By: #### C MP ####[facility] Wmqjjfnnsg7[address] [place] [address]Dr. Chrissy Frazier EGFR-NON AF GUINEAN >60 Normal >=60 [facility] Comment on above: Performed By: #### C MP ####[facility] Ewhiwxdqov[address] [place], [place] [address]Dr. Chrissy Frazier Globulin (S) [Mass/Vol] 3.6 g/dL Normal [facility] Comment on above: Performed By: #### C MP ####[facility] Xxchlffnzk4[address] [place], [place] [address]Dr. Chrissy Frazier Glucose [Mass/Vol] 89 mg/dL Normal 74-106 [facility] Comment on above: Performed By: #### C MP ####[facility] Duqpjebzpv[address] [place] [address]Dr. Chrissy Frazier Potassium [Moles/Vol] 3.4 mmol/L Critically low 3.5-5.1 [facility] Comment on above: Performed By: #### C MP ####[facility] Lcwitvtdol[address] [place], [place] [address]Dr. Chrissy Freddie Protein [Mass/Vol] 7.4 g/dL Normal 6.4-8.2 [facility] Comment on above: Performed By: #### C MP ####[facility] Hkvwhbelhe9[address] [place], [place] [address]Dr. Chrissy Frazier Sodium [Moles/Vol] 139 mmol/L Normal 136-145 [facility] Comment on above: Performed By: #### C MP ####[facility] Ocpdjxiewm[address] [place], [place] [address]Dr. Chrissy Frazier Urea nitrogen [Mass/Vol] 10.0 mg/dL Normal 7.0-18.0 [facility] Comment on above: Performed By: #### C MP ####[facility] Klbidyjswx69[address] [place], [place] [address]Dr. Chrissy Frazier Urea nitrogen/Creatinine [Mass ratio] 9.0 mg/mg Normal [facility] Comment on above: Performed By: #### C MP ####[facility] Zprrzmxlpx[address] [place], [place] [address]Dr. Chrissy Frazier CBC AUTO DIFFon 07-04-2022 BASO # 0.0 103/ul Normal 0.0-0.1 [facility] Comment on above: Performed By: #### C BC ####[facility] Gplewibwxf87[address] [place], [place] [address]Dr. Chrissy Freddie Basophils/100 WBC (Bld) 0.2 % Normal 0.2-2.0 [facility] Comment on above: Performed By: #### C BC ####[facility] Emztjycnzl[address] [place], [place] [address]Dr. Chrissy Frazier EO # 0.0 103/ul Normal 0.0-0.7 [facility] Comment on above: Performed By: #### C BC ####[facility] Awfkrixmxc[address] [place], [place] [address]Dr. Chrissy Freddie Eosinophils/100 WBC (Bld) 0.3 % Critically low 0.9-7.0 [facility] Comment on above: Performed By: #### C BC ####[facility] Pcckrwopod64[address] [place], [place] [address]Dr. Chrissy Frazier Erythrocyte distribution width (RBC) [Ratio] 14.0 % Normal 11.0-15.0 [facility] Comment on above: Performed By: #### C BC ####[facility] Wipklklibg80[address] [place] [address]Dr. Chrissy Frazier Hematocrit (Bld) [Volume fraction] 43.2 % Normal 42.0-54.0 [facility] Comment on above: Performed By: #### C BC ####[facility] Miboabjzgn3234 [place] [address]Dr. Chrissy Frazier Hemoglobin (Bld) [Mass/Vol] 14.6 g/dL Normal 14.0-18.0 [facility] Comment on above: Performed By: #### C BC ####[facility] Jumxrkxdud2396 [place] [address]Dr. Tishrowan Freddie IG # 0.11 10e3/ul Critically high 0.00-0.03 [facility] Comment on above: Performed By: #### C BC ####[facility] Ztmbsrvobm2587 [place] [address]Dr. Chrissy Frazier IG % 0.8 % Critically high 0.0-0.5 [facility] Comment on above: Performed By: #### C BC ####[facility] Yfacglpluq6677 [place] [address]Dr. Chrissy Frazier LYMPH # 2.6 103/ul Normal 1.2-3.8 [facility] Comment on above: Performed By: #### C BC ####[facility] Myivppzrta3185 [place] [address]Dr. Tishrowan Frazier Lymphocytes/100 WBC (Bld) 18.3 % Critically low 20.5-60.0 [facility] Comment on above: Performed By: #### C BC ####[facility] Qwssyfleyb5938 [place] [address]Dr. Tishrowan Frazier MANUAL DIFF REQ NO Normal [facility] Comment on above: Performed By: #### C BC ####[facility] Hrjoeznyhj13[address] [place], [place] [address]Dr. Chrissy Frazier MCH (RBC) [Entitic mass] 28.1 pg Normal 25.9-34.0 [facility] Comment on above: Performed By: #### C BC ####[facility] Nftzlxzaqe9675 [place] [address]Dr. Chrissy Frazier MCHC (RBC) [Mass/Vol] 33.8 g/dL Normal 29.9-35.2 [facility] Comment on above: Performed By: #### C BC ####[facility] Hlxxtzttmn7906 [place] [address]Dr. Chrissy Frazier MCV (RBC) [Entitic vol] 83.2 fL Normal 80.0-94.0 [facility] Comment on above: Performed By: #### C BC ####[facility] Jwrmijaaqd9191 [place] [address]Dr. Chrissy Frazier MONO # 0.7 103/ul Normal 0.3-0.8 [facility] Comment on above: Performed By: #### C BC ####[facility] Xbpgeazdau1137 [place] [address]Dr. Tishrowan Frazier Monocytes/100 WBC (Bld) 5.3 % Normal 1.7-12.0 [facility] Comment on above: Performed By: #### C BC ####[facility] Fjuamysops6379 [place] [address]Dr. Chrissy Frazier NEUT # 10.5 103/ul Critically high 1.4-6.5 [facility] Comment on above: Performed By: #### C BC ####[facility] Baepdtevrj4547 [place] [address]Dr. Chrissy Frazier Neutrophils/100 WBC (Bld) 75.1 % Critically high 43.0-75.0 [facility] Comment on above: Performed By: #### C BC ####[facility] Hrkcwvscvn4237 [place] [address]Dr. Chrissy Frazier Platelet mean volume (Bld) [Entitic vol] 10.6 fL Normal 9.5-13.5 [facility] Comment on above: Performed By: #### C BC ####[facility] Joqdpuaswe3105 [place] [address]Dr. Chrissy Freddie PLT 309 103/ul Normal 150-450 [facility] Comment on above: Performed By: #### C BC ####[facility] Gugrrfrenm2272 [place] [address]Dr. Chrissy Frazier RBC 5.19 106/ul Normal 4.70-6.10 [facility] Comment on above: Performed By: #### C BC ####[facility] Eckqbqvsjk3566 [place] [address]Dr. Chrissy Frazier WBC 14.0 103/ul Critically high 4.0-11.0 [facility] Comment on above: Performed By: #### C BC ####[facility] Bcshdhddov8006 [place] [address]Dr. Chrissy Frazier PROF 14(COMP METB)on 022 Albumin [Mass/Vol] 4.0 g/dL Normal 3.4-5.0 [facility] Comment on above: Performed By: #### C MP ####[facility] Aaefgjcrpe85[address] [place], [place] [address]Dr. Chrissy Frazier Albumin/Globulin [Mass ratio] 1.1 {ratio} Normal [facility] Comment on above: Performed By: #### C MP ####[facility] Udzmjqqlxs733[address] [place], [place] [address]Dr. Chrissy Frazier ALP [Catalytic activity/Vol] 67 U/L Normal 46-116 [facility] Comment on above: Performed By: #### C MP ####[facility] Fdirrnxnpx136[address] [place], [place] [address]Dr. Chrissy Frazier ALT [Catalytic activity/Vol] 40 U/L Normal 16-63 [facility] Comment on above: Performed By: #### C MP ####[facility] Abhzvvhtji493[address] [place], [place] [address]Dr. Chrissy Frazier Anion gap [Moles/Vol] 17.7 mmol/L Normal [facility] Comment on above: Performed By: #### C MP ####[facility] Kfmpnkbwid8107[address] [place], [place] [address]Dr. Chrissy Frazier AST [Catalytic activity/Vol] 27 U/L Normal 15-37 [facility] Comment on above: Performed By: #### C MP ####[facility] Ngpftqolim5594[address] [place], [place] [address]Dr. Chrissy Frazier Bilirubin [Mass/Vol] 0.8 mg/dL Normal 0.2-1.0 [facility] Comment on above: Performed By: #### C MP ####[facility] Vaawijyhsz5180 [place] [address]Dr. Chrissy Frazier Calcium [Mass/Vol] 8.8 mg/dL Normal 8.5-10.1 [facility] Comment on above: Performed By: #### C MP ####[facility] Jstqdvspci6706 [place] [address]Dr. Chrissy Frazier Chloride [Moles/Vol] 105 mmol/L Normal 98-107 [facility] Comment on above: Performed By: #### C MP ####[facility] Sqfzcrqdbt1210 [place] [address]Dr. Chrissy Frazier CO2 [Moles/Vol] 16.5 mmol/L Critically low 21.0-32.0 [facility] Comment on above: Performed By: #### C MP ####[facility] Ofcfmvrpdp8998[address] [place], [place] [address]Dr. Chrissy Frazier Creatinine [Mass/Vol] 1.02 mg/dL Normal 0.70-1.30 [facility] Comment on above: Performed By: #### C MP ####[facility] Iyzctxuonq615[address] [place], [place] [address]Dr. Chrissy Frazier EGFR-AF GUINEAN >60 Normal >=60 [facility] Comment on above: Performed By: #### C MP ####[facility] Ijxawgjjsu6046 [place] [address]Dr. Chrissy Freddie EGFR-NON AF GUINEAN >60 Normal >=60 [facility] Comment on above: Performed By: #### C MP ####[facility] Ycprwommgm312[address] [place], [place] [address]Dr. Tishrowan Freddie Globulin (S) [Mass/Vol] 3.7 g/dL Normal [facility] Comment on above: Performed By: #### C MP ####[facility] Gijwlqiquu5109 [place] [address]Dr. Tishrowan Frazier Glucose [Mass/Vol] 106 mg/dL Normal 74-106 [facility] Comment on above: Performed By: #### C MP ####[facility] Yyjepjfung0185 [place] [address]Dr. Chrissy Freddie Potassium [Moles/Vol] 3.2 mmol/L Critically low 3.5-5.1 [facility] Comment on above: Performed By: #### C MP ####[facility] Qvxilbvihy4296[address] [place], [place] [address]Dr. Chrissy Freddie Protein [Mass/Vol] 7.7 g/dL Normal 6.4-8.2 [facility] Comment on above: Performed By: #### C MP ####[facility] Fxozauslsg0536[address] [place], [place] [address]Dr. Chrissy Frazier Sodium [Moles/Vol] 136 mmol/L Normal 136-145 [facility] Comment on above: Performed By: #### C MP ####[facility] Qhbecjmniw667[address] [place], [place] [address]Dr. Chrissy Freddie Urea nitrogen [Mass/Vol] 10.0 mg/dL Normal 7.0-18.0 [facility] Comment on above: Performed By: #### C MP ####[facility] Prjxriukxj8650[address] [place], [place] [address]Dr. Tishrowan Freddie Urea nitrogen/Creatinine [Mass ratio] 9.8 mg/mg Normal [facility] Comment on above: Performed By: #### C MP ####[facility] Qyocaumhci4340[address] [place], [place] [address]Dr. Chrissy Freddie CBC AUTO DIFFon 07-03-2022 BASO # 0.1 103/ul Normal 0.0-0.1 [facility] Comment on above: Performed By: #### C BC ####[facility] Agibicyoqy6614[address] [place], [place] [address]Dr. Chrissy Frazier Basophils/100 WBC (Bld) 0.5 % Normal 0.2-2.0 [facility] Comment on above: Performed By: #### C BC ####[facility] Nqvaowebod2978[address] [place], [place] [address]Dr. Chrissy Frazier EO # 0.1 103/ul Normal 0.0-0.7 [facility] Comment on above: Performed By: #### C BC ####[facility] Ocialpdtyk5873 [place] [address]Dr. Chrissy Frazier Eosinophils/100 WBC (Bld) 1.3 % Normal 0.9-7.0 [facility] Comment on above: Performed By: #### C BC ####[facility] Roelegnweh2487 [place] [address]Dr. Chrissy Frazier Erythrocyte distribution width (RBC) [Ratio] 14.2 % Normal 11.0-15.0 [facility] Comment on above: Performed By: #### C BC ####[facility] Okmqzfafwx209[address] [place], [place] [address]Dr. Chrissy Frazier Hematocrit (Bld) [Volume fraction] 41.7 % Critically low 42.0-54.0 [facility] Comment on above: Performed By: #### C BC ####[facility] Bjmzfjnfzy4226[address] [place], [place] [address]Dr. Chrissy Frazier Hemoglobin (Bld) [Mass/Vol] 13.6 g/dL Critically low 14.0-18.0 [facility] Comment on above: Performed By: #### C BC ####[facility] Xeowbaeadl7945[address] [place], [place] [address]Dr. Chrissy Frazier IG # 0.04 10e3/ul Critically high 0.00-0.03 [facility] Comment on above: Performed By: #### C BC ####[facility] Xqluxnopuh4377 [place] [address]Dr. Chrissy Frazier IG % 0.4 % Normal 0.0-0.5 [facility] Comment on above: Performed By: #### C BC ####[facility] Faqeodvryl9624[address] [place], [place] [address]Dr. Chrissy Frazier LYMPH # 3.5 103/ul Normal 1.2-3.8 [facility] Comment on above: Performed By: #### C BC ####[facility] Kmdrwnhudz13[address] [place], [place] [address]Dr. Chrissy Frazier Lymphocytes/100 WBC (Bld) 33.5 % Normal 20.5-60.0 [facility] Comment on above: Performed By: #### C BC ####[facility] Xgqtcrlvtp7644 [place] [address]Dr. Chrissy Frazier MANUAL DIFF REQ NO Normal [facility] Comment on above: Performed By: #### C BC ####[facility] Mzfvbofzlp5252 [place] [address]Dr. Chrissy Frazier MCH (RBC) [Entitic mass] 27.9 pg Normal 25.9-34.0 [facility] Comment on above: Performed By: #### C BC ####[facility] Cmbkmuwgrx5653 [place] [address]Dr. Chrissy Frazier MCHC (RBC) [Mass/Vol] 32.6 g/dL Normal 29.9-35.2 [facility] Comment on above: Performed By: #### C BC ####[facility] Mnpqprlhur3421 [place] [address]Dr. Chrissy Frazier MCV (RBC) [Entitic vol] 85.6 fL Normal 80.0-94.0 [facility] Comment on above: Performed By: #### C BC ####[facility] Iblhvndqir7632 [place] [address]Dr. Chrissy Frazier MONO # 0.7 103/ul Normal 0.3-0.8 [facility] Comment on above: Performed By: #### C BC ####[facility] Nrmhauyxqg4994 [place] [address]Dr. Chrissy Frazier Monocytes/100 WBC (Bld) 6.5 % Normal 1.7-12.0 [facility] Comment on above: Performed By: #### C BC ####[facility] Leppwlcorl2327 [place] [address]DrNancy Frazier NEUT # 6.1 103/ul Normal 1.4-6.5 [facility] Comment on above: Performed By: #### C BC ####[facility] Jfeiwckkfo5923[address] [place], [place] [address]Dr. Chrissy Frazier Neutrophils/100 WBC (Bld) 57.8 % Normal 43.0-75.0 [facility] Comment on above: Performed By: #### C BC ####[facility] Ontegpgagw6727 [place] [address]Dr. Tishrowan Freddie Platelet mean volume (Bld) [Entitic vol] 10.4 fL Normal 9.5-13.5 [facility] Comment on above: Performed By: #### C BC ####[facility] Ggwhztqwsn8332 [place] [address]DrNancy Frazier PLT 288 103/ul Normal 150-450 [facility] Comment on above: Performed By: #### C BC ####[facility] Rqowaijtsg7719 [place] [address]DrNancy Frazier RBC 4.87 106/ul Normal 4.70-6.10 [facility] Comment on above: Performed By: #### C BC ####[facility] Bzfijbxcsi7[address] [place], [place] [address]DrNancy Frazier WBC 10.5 103/ul Normal 4.0-11.0 [facility] Comment on above: Performed By: #### C BC ####[facility] Raatzzyiwi8569[address] [place], [place] [address]DrNancy Frazier PROF 14(COMP METB)on 022 Albumin [Mass/Vol] 3.6 g/dL Normal 3.4-5.0 [facility] Comment on above: Performed By: #### C MP ####[facility] Mvwjmwilpi9085 [place] [address]DrNancy Frazier Albumin/Globulin [Mass ratio] 1.1 {ratio} Normal [facility] Comment on above: Performed By: #### C MP ####[facility] Dgnqiadeat1198 [place] [address]DrNancy Frazier ALP [Catalytic activity/Vol] 58 U/L Normal 46-116 [facility] Comment on above: Performed By: #### C MP ####[facility] Rfnpbaacij9413[address] [place], [place] [address]Dr. Yirowan Frazier ALT [Catalytic activity/Vol] 30 U/L Normal 16-63 [facility] Comment on above: Performed By: #### C MP ####[facility] Onybcaxqqe5710 [place] [address]Dr. Tishrowan Freddie Anion gap [Moles/Vol] 14.5 mmol/L Normal [facility] Comment on above: Performed By: #### C MP ####[facility] Pyovtkwsoz6758[address] [place], [place] [address]Dr. Chrissy Freddie AST [Catalytic activity/Vol] 17 U/L Normal 15-37 [facility] Comment on above: Performed By: #### C MP ####[facility] Eajlavblpf9116[address] [place], [place] [address]Dr. Chrissy Frazier Bilirubin [Mass/Vol] 0.6 mg/dL Normal 0.2-1.0 [facility] Comment on above: Performed By: #### C MP ####[facility] Wggtlophap5059[address] [place], [place] [address]Dr. Chrissy Frazier Calcium [Mass/Vol] 8.4 mg/dL Critically low 8.5-10.1 [facility] Comment on above: Performed By: #### C MP ####[facility] Nzljqrvctd0855[address] [place], [place] [address]Dr. Chrissy Frazier Chloride [Moles/Vol] 106 mmol/L Normal 98-107 [facility] Comment on above: Performed By: #### C MP ####[facility] Nrfodjvdad9[address] [place], [place] [address]Dr. Chrissy Frazier CO2 [Moles/Vol] 22.6 mmol/L Normal 21.0-32.0 [facility] Comment on above: Performed By: #### C MP ####[facility] Hjwtqwwchc245[address] [place], [place] [address]Dr. Chrissy Frazier Creatinine [Mass/Vol] 1.08 mg/dL Normal 0.70-1.30 [facility] Comment on above: Performed By: #### C MP ####[facility] Szjfyklygp194[address] [place], [place] [address]Dr. Chrissy Frazier EGFR-AF GUINEAN >60 Normal >=60 [facility] Comment on above: Performed By: #### C MP ####[facility] Heheuonegn3272 [place], [place] [address]Pt. Chrissy Frazier EGFR-NON AF GUINEAN >60 Normal >=60 [facility] Comment on above: Performed By: #### C MP ####[facility] Fqxkunqgpc3251 [place], [place] [address]Sn. Chrissy Frazier Globulin (S) [Mass/Vol] 3.3 g/dL Normal [facility] Comment on above: Performed By: #### C MP ####[facility] Ernjwnttdc6935 [place] [address]Dr. Chrissy Frazier Glucose [Mass/Vol] 94 mg/dL Normal 74-106 [facility] Comment on above: Performed By: #### C MP ####[facility] Ogbrkzdmmz1954 [place] [address]Dr. Chrissy Frazier Potassium [Moles/Vol] 3.1 mmol/L Critically low 3.5-5.1 [facility] Comment on above: Performed By: #### C MP ####[facility] Udjrobfcyu5096 [place] [address]Dr. Chrissy Frazier Protein [Mass/Vol] 6.9 g/dL Normal 6.4-8.2 [facility] Comment on above: Performed By: #### C MP ####[facility] Sfqpealskz6606 [place] [address]Dr. Chrissy Frazier Sodium [Moles/Vol] 140 mmol/L Normal 136-145 [facility] Comment on above: Performed By: #### C MP ####[facility] Vkvtoetxeo4578 [place] [address]Dr. Chrissy Frazier Urea nitrogen [Mass/Vol] 10.0 mg/dL Normal 7.0-18.0 [facility] Comment on above: Performed By: #### C MP ####[facility] Wnxhozseft9172 [place] [address]Dr. Chrissy Frazier Urea nitrogen/Creatinine [Mass ratio] 9.3 mg/mg Normal [facility] Comment on above: Performed By: #### C MP ####[facility] Iqzsdbdrur6[address] [place], [place] [address]Dr. Chrissy Frazier CBC AUTO DIFFon 07-02-2022 BASO # 0.0 103/ul Normal 0.0-0.1 [facility] Comment on above: Performed By: #### C BC ####[facility] Ywyzweomov1499[address] [place], [place] [address]Dr. Chrissy Frazier Basophils/100 WBC (Bld) 0.2 % Normal 0.2-2.0 [facility] Comment on above: Performed By: #### C BC ####[facility] Ionkgdimbl8774[address] [place], [place] [address]Dr. Chrissy Frazier EO # 0.0 103/ul Normal 0.0-0.7 [facility] Comment on above: Performed By: #### C BC ####[facility] Dgntzmwwgx2346[address] [place], [place] [address]Dr. Chrissy Frazier Eosinophils/100 WBC (Bld) 0.0 % Critically low 0.9-7.0 [facility] Comment on above: Performed By: #### C BC ####[facility] Lgomszjrha8623[address] [place], [place] [address]Dr. Chrissy Frazier Erythrocyte distribution width (RBC) [Ratio] 14.2 % Normal 11.0-15.0 [facility] Comment on above: Performed By: #### C BC ####[facility] Inlrrpkquv2730[address] [place], [place] [address]Dr. Chrissy Frazier Hematocrit (Bld) [Volume fraction] 46.2 % Normal 42.0-54.0 [facility] Comment on above: Performed By: #### C BC ####[facility] Lebdouaexs5399[address] [place], [place] [address]Dr. Chrissy Frazier Hemoglobin (Bld) [Mass/Vol] 15.2 g/dL Normal 14.0-18.0 [facility] Comment on above: Performed By: #### C BC ####[facility] Xpokznuwyp3630[address] [place], [place] [address]Dr. Chrissy Frazier IG # 0.07 10e3/ul Critically high 0.00-0.03 [facility] Comment on above: Performed By: #### C BC ####[facility] Ahzrqhpwlx7563 [place] [address]DrNancy Chrissy Freddie IG % 0.4 % Normal 0.0-0.5 [facility] Comment on above: Performed By: #### C BC ####[facility] Aytyioahcg7934 [place] [address]DrNancy Chrissy Freddie LYMPH # 2.8 103/ul Normal 1.2-3.8 [facility] Comment on above: Performed By: #### C BC ####[facility] Igloebqhfd2984[address] [place], [place] [address]DrNancy Chrissy Freddie Lymphocytes/100 WBC (Bld) 16.7 % Critically low 20.5-60.0 [facility] Comment on above: Performed By: #### C BC ####[facility] Wymkpdcrzt1094[address] [place], [place] [address]DrNancy Chrissy Freddie MANUAL DIFF REQ NO Normal [facility] Comment on above: Performed By: #### C BC ####[facility] Lqlkbcwkpy097[address] [place], [place] [address]DrNancy Chrissy Freddie MCH (RBC) [Entitic mass] 28.3 pg Normal 25.9-34.0 [facility] Comment on above: Performed By: #### C BC ####[facility] Piheexzede3025 [place] [address]DrNancy Chrissy Freddie MCHC (RBC) [Mass/Vol] 32.9 g/dL Normal 29.9-35.2 [facility] Comment on above: Performed By: #### C BC ####[facility] Fcjmfhdqck8728[address] [place], [place] [address]DrNancy Winstonrowan Freddie MCV (RBC) [Entitic vol] 86.0 fL Normal 80.0-94.0 [facility] Comment on above: Performed By: #### C BC ####[facility] Elrbhyslbz1635[address] [place], [place] [address]DrNancy Frazier MONO # 0.9 103/ul Critically high 0.3-0.8 [facility] Comment on above: Performed By: #### C BC ####[facility] Nsrvkofbwj0451 [place] [address]Dr. Chrissy Frazier Monocytes/100 WBC (Bld) 5.1 % Normal 1.7-12.0 [facility] Comment on above: Performed By: #### C BC ####[facility] Nzxyevnfxg4059 [place] [address]Dr. Chrissy Frazier NEUT # 13.2 103/ul Critically high 1.4-6.5 [facility] Comment on above: Performed By: #### C BC ####[facility] Pxymwziyvn0095 [place] [address]Dr. Chrissy Frazier Neutrophils/100 WBC (Bld) 77.6 % Critically high 43.0-75.0 [facility] Comment on above: Performed By: #### C BC ####[facility] Xmwlitaeis6154[address] [place], [place] [address]Dr. Chrissy Frazier Platelet mean volume (Bld) [Entitic vol] 11.6 fL Normal 9.5-13.5 [facility] Comment on above: Performed By: #### C BC ####[facility] Mhsginowix4164 [place] [address]Dr. Chrissy Frazier PLT 317 103/ul Normal 150-450 [facility] Comment on above: Performed By: #### C BC ####[facility] [address] [place], [place] [address]Dr. Chrissy Frazier RBC 5.37 106/ul Normal 4.70-6.10 [facility] Comment on above: Performed By: #### C BC ####[facility] Gdungqluza6651 [place] [address]Dr. Chrissy Frazier WBC 17.1 103/ul Critically high 4.0-11.0 [facility] Comment on above: Performed By: #### C BC ####[facility] Utbvvzqhsl7895 [place] [address]Dr. Chrissy Frazier CT ABD/PELV W MARGOTHon 07-02-[address] ABD/PELV W CON Normal [facility] H PYLORI ANTIBODY IGGon 06-21 H. PYLORI IGG ABS 0.13 Index Value Normal 0.00-0.79 [facility] Comment on above: Result Comment: Nega tive <0.80 Equivocal 0.80 - 0.89 Positive >0.89 Performed By: #### H PYLLC ####[facility] Chmdjxkhft80[address] [place] [address]Dr. Chrissy Frazier PROF 14(COMP METB)on 022 Albumin [Mass/Vol] 3.8 g/dL Normal 3.4-5.0 [facility] Comment on above: Performed By: #### C MP ####[facility] Zyaqsvmhso[address] [place], [place] [address]Dr. Chrissy Frazier Albumin/Globulin [Mass ratio] 1.0 {ratio} Normal [facility] Comment on above: Performed By: #### C MP ####[facility] Nrxwrjymiw[address] [place], [place] [address]Dr. Chrissy Frazier ALP [Catalytic activity/Vol] 68 U/L Normal 46-116 [facility] Comment on above: Performed By: #### C MP ####[facility] Mhrqhdrtpl[address] [place], [place] [address]Dr. Chrissy Frazier ALT [Catalytic activity/Vol] 34 U/L Normal 16-63 [facility] Comment on above: Performed By: #### C MP ####[facility] Rpkxgzwjvh16[address] [place], [place] [address]Dr. Chrissy Frazier Anion gap [Moles/Vol] 17.9 mmol/L Normal [facility] Comment on above: Performed By: #### C MP ####[facility] Pmrwdfzbmy36[address] [place], [place] [address]Dr. Chrissy Frazier AST [Catalytic activity/Vol] 24 U/L Normal 15-37 [facility] Comment on above: Performed By: #### C MP ####[facility] Xrbjqiphbe[address] [place], [place] [address]Dr. Chrissy Frazier Bilirubin [Mass/Vol] 0.6 mg/dL Normal 0.2-1.0 [facility] Comment on above: Performed By: #### C MP ####[facility] [address] [place] [address]Dr. Chrissy Frazier Calcium [Mass/Vol] 8.8 mg/dL Normal 8.5-10.1 [facility] Comment on above: Performed By: #### C MP ####[facility] Rsjgcvyyys[address] [place] [address]Dr. Chrissy Frazier Chloride [Moles/Vol] 105 mmol/L Normal 98-107 [facility] Comment on above: Performed By: #### C MP ####[facility] Kwncgbwyqk24[address] [place], [place] [address]Dr. Chrissy Frazier CO2 [Moles/Vol] 18.8 mmol/L Critically low 21.0-32.0 [facility] Comment on above: Performed By: #### C MP ####[facility] Vvmkpgkwan05[address] [place], [place] [address]Dr. Chrissy Frazier Creatinine [Mass/Vol] 1.15 mg/dL Normal 0.70-1.30 [facility] Comment on above: Performed By: #### C MP ####[facility] Wavzbgqhkc[address] [place], [place] [address]Dr. Chrissy Frazier EGFR-AF GUINEAN >60 Normal >=60 [facility] Comment on above: Performed By: #### C MP ####[facility] Kfqglmevnj69[address] [place], [place] [address]Dr. Chrissy Freddie EGFR-NON AF GUINEAN >60 Normal >=60 [facility] Comment on above: Performed By: #### C MP ####[facility] Zhhrrokhlz[address] [place], [place] [address]Dr. Chrissy Freddie Globulin (S) [Mass/Vol] 3.9 g/dL Normal [facility] Comment on above: Performed By: #### C MP ####[facility] Yjncsvofzf47[address] [place], [place] [address]Dr. Chrissy Frazier Glucose [Mass/Vol] 124 mg/dL Critically high 74-106 [facility] Comment on above: Performed By: #### C MP ####[facility] [address]usvfqbtz3[address] [place] [address]Dr. Chrissy Frazier Potassium [Moles/Vol] 3.7 mmol/L Normal 3.5-5.1 [facility] Comment on above: Performed By: #### C MP ####[facility] Svudzzfyzp[address] [place] [address]Dr. Chrissy Freddie Protein [Mass/Vol] 7.7 g/dL Normal 6.4-8.2 [facility] Comment on above: Performed By: #### C MP ####[facility] Mbwvazkvwt0316[address] [place], [place] [address]Dr. Tishrowan Frazier Sodium [Moles/Vol] 138 mmol/L Normal 136-145 [facility] Comment on above: Performed By: #### C MP ####[facility] Qmgtthxqmm394[address] [place], [place] [address]Dr. Tishrowan Frazier Urea nitrogen [Mass/Vol] 9.0 mg/dL Normal 7.0-18.0 [facility] Comment on above: Performed By: #### C MP ####[facility] Cvjtsjwnzp6[address] [place], [place] [address]Dr. Chrissy Freddie Urea nitrogen/Creatinine [Mass ratio] 7.8 mg/mg Normal [facility] Comment on above: Performed By: #### C MP ####[facility] Tvefgwfklt1349[address] [place], [place] [address]Dr. Chrissy Freddie AMMONIAon 07-01-2022 Ammonia (P) [Moles/Vol] 14 umol/L Normal 11-32 [facility] Comment on above: Performed By: #### A MM ####[facility] Heriecycll214[address] [place], [place] [address]Dr. Tishrowan Frazier AMYLASEon 07-01-2022 Amylase [Catalytic activity/Vol] 32 U/L Normal 25-115 [facility] Comment on above: Performed By: #### A MY, PHOS, CMP, LIPA ####[facility] Dlrksuasoj60[address] [place] [address]Dr. Tishrowan Frazier CBC AUTO DIFFon 07-01-2022 BASO # 0.1 103/ul Normal 0.0-0.1 [facility] Comment on above: Performed By: #### C BC ####[facility] Krshnhiuew[address] [place] [address]Dr. Chrissy Frazier Basophils/100 WBC (Bld) 0.4 % Normal 0.2-2.0 [facility] Comment on above: Performed By: #### C BC ####[facility] Dwdpxjnyuy219[address] [place], [place] [address]Dr. Chrissy Frazier EO # 0.2 103/ul Normal 0.0-0.7 [facility] Comment on above: Performed By: #### C BC ####[facility] Xrikkofdjx0838[address] [place], [place] [address]Dr. Tishrowan Freddie Eosinophils/100 WBC (Bld) 0.9 % Normal 0.9-7.0 [facility] Comment on above: Performed By: #### C BC ####[facility] Sqloveksrc728[address] [place], [place] [address]Dr. Chrissy Frazier Erythrocyte distribution width (RBC) [Ratio] 13.8 % Normal 11.0-15.0 [facility] Comment on above: Performed By: #### C BC ####[facility] Yjdrqgquac65[address] [place], [place] [address]Dr. Tishrowan Frazier Hematocrit (Bld) [Volume fraction] 46.3 % Normal 42.0-54.0 [facility] Comment on above: Performed By: #### C BC ####[facility] Dujzxupspb310[address] [place], [place] [address]Dr. Tishrowan Frazier Hemoglobin (Bld) [Mass/Vol] 15.4 g/dL Normal 14.0-18.0 [facility] Comment on above: Performed By: #### C BC ####[facility] Waoilffmsz6020[address] [place], [place] [address]Dr. Chrissy Frazier IG # 0.05 10e3/ul Critically high 0.00-0.03 [facility] Comment on above: Performed By: #### C BC ####[facility] Uclxnsjrsz[address] [place] [address]Dr. Chrissy Frazier IG % 0.3 % Normal 0.0-0.5 [facility] Comment on above: Performed By: #### C BC ####[facility] Bvvoiofemk6601[address] [place], [place] [address]Dr. Chrissy Frazier LYMPH # 2.0 103/ul Normal 1.2-3.8 [facility] Comment on above: Performed By: #### C BC ####[facility] Dzvxoxxowj247[address] [place], [place] [address]Dr. Chrissy Frazier Lymphocytes/100 WBC (Bld) 12.9 % Critically low 20.5-60.0 [facility] Comment on above: Performed By: #### C BC ####[facility] Glexhsgvuf1985[address] [place], [place] [address]DrNancy Frazier MANUAL DIFF REQ NO Normal [facility] Comment on above: Performed By: #### C BC ####[facility] Gaxmsyilnq6[address] [place], [place] [address]Dr. Tishrowan Frazier MCH (RBC) [Entitic mass] 28.6 pg Normal 25.9-34.0 [facility] Comment on above: Performed By: #### C BC ####[facility] Atfnejeqwk4311[address] [place], [place] [address]Dr. Chrissy Freddie MCHC (RBC) [Mass/Vol] 33.3 g/dL Normal 29.9-35.2 [facility] Comment on above: Performed By: #### C BC ####[facility] Vsluoasldw[address] [place], [place] [address]DrNancy Frazier MCV (RBC) [Entitic vol] 86.1 fL Normal 80.0-94.0 [facility] Comment on above: Performed By: #### C BC ####[facility] Nwgkaribif8168[address] [place], [place] [address]DrNancy Frazier MONO # 0.5 103/ul Normal 0.3-0.8 [facility] Comment on above: Performed By: #### C BC ####[facility] Iylljjkfep7380[address] [place], [place] [address]Dr. Chrissy Frazier Monocytes/100 WBC (Bld) 3.0 % Normal 1.7-12.0 [facility] Comment on above: Performed By: #### C BC ####[facility] Wfrvztlthw[address] [place] [address]Dr. Chrissy Frazier NEUT # 13.0 103/ul Critically high 1.4-6.5 [facility] Comment on above: Performed By: #### C BC ####[facility] Nkbijrdqpx17[address] [place] [address]Dr. Chrissy Frazier Neutrophils/100 WBC (Bld) 82.5 % Critically high 43.0-75.0 [facility] Comment on above: Performed By: #### C BC ####[facility] Funulappju425[address] [place], [place] [address]Dr. Chrissy Frazier Platelet mean volume (Bld) [Entitic vol] 10.0 fL Normal 9.5-13.5 [facility] Comment on above: Performed By: #### C BC ####[facility] Rifhannfqd2436[address] [place], [place] [address]Dr. Chrissy Frazier PLT 370 103/ul Normal 150-450 [facility] Comment on above: Performed By: #### C BC ####[facility] Vzdvjrvhiq5[address] [place], [place] [address]Dr. Chrissy Frazier RBC 5.38 106/ul Normal 4.70-6.10 [facility] Comment on above: Performed By: #### C BC ####[facility] Yjfvukqpal4946[address] [place], [place] [address]Dr. Chrissy Frazier WBC 15.8 103/ul Critically high 4.0-11.0 [facility] Comment on above: Performed By: #### C BC ####[facility] [address]abbrplv[address] [place] [address]Dr. Chrissy Frazier CULTURE URINEon 07-01-2022 CULTURE URINE Culture Observations: No growth Normal [facility] Comment on above: Performed By: #### U RCX ####[facility] Eiowulyydy0420[address] [place], [place] [address]Dr. Chrissy Frazier Covid-19 PCR (CVDTB)on 06-21 SARS-CoV-2 (COVID-19) RNA RHIANNON+probe Ql (Unsp spec) Not detected Normal NOT DETECTED [facility] Comment on above: Result Comment: When [...] for this test is supported by the Center of Health and Human Service's declaration that [...] be used). Performed By: #### C VDTBH ####[facility] Im[address]dhoudu[address] [place] [address]Dr. Chrissy Freddie DRUG SCREEN RAPID (URINE)on 07-01-2022 AMP Negative Normal NEGATIVE [facility] Comment on above: Performed By: #### D REYES UAMIC ####[facility] V[address]emqgcuh[address] [place] [address]Dr. Chrissy Frazier BAR Negative Normal NEGATIVE [facility] Comment on above: Performed By: #### D CHAYAD, UAMIC ####[facility] V[address]xsdvysx76[address] [place] [address]Dr. Chrissy Frazier BUP Negative Normal NEGATIVE [facility] Comment on above: Performed By: #### D REYES UAMIC ####[facility] Bxyqhblpll399[address] [place] [address]Dr. Tishrowan Frazier BZO Negative Normal NEGATIVE [facility] Comment on above: Performed By: #### D REYES UAMIC ####[facility] Wigayhdsga[address] [place] [address]Dr. Chrissy Frazier LAUREN Negative Normal NEGATIVE [facility] Comment on above: Performed By: #### Amelie CHAMBERS UAMIC ####[facility] Tibhjqiqlx79[address] [place], [place] [address]Dr. Chrissy Frazier CUT-OFFS SEE BELOW Normal [facility] Comment on above: Result Comment: AMP [...] ng/mL Performed By: #### Amelie CHAMBERS UAMIC ####[facility] Iyizriqicz[address]24[address] [place], [place] [address]Dr. Chrissy Frazier DRUG CUT HEADER DRUG CLASS TEST SYSTEM CUT-OFF CONCENTRATIONS ARE FOLLOWS: Normal [facility] Comment on above: Performed By: #### Amelie CHAMBERS UAMIC ####[facility] Bpmfeytpgx[address] [place], [place] [address]Dr. Chrissy Frazier mAMP Negative Normal NEGATIVE [facility] Comment on above: Performed By: #### Amelie CHAMBERS UAMIC ####[facility] Ubowjtjgkt0012[address] [place], [place] [address]Dr. Chrissy Frazier MTD Negative Normal NEGATIVE [facility] Comment on above: Performed By: #### Amelie CHAMBERS UAMIC ####[facility] Qssgvsmzqh8417[address] [place], [place] [address]Dr. Chrissy Frazier OPI Negative Normal NEGATIVE [facility] Comment on above: Performed By: #### Amelie CHAMBERS UAMIC ####[facility] Udouvclhtu512[address] [place], [place] [address]Dr. Chrissy Frazier OXY Negative Normal NEGATIVE [facility] Comment on above: Performed By: #### D REYES, UAMIC ####[facility] Hlawkgqqii[address] [place] [address]Dr. Chrissy Frazier PCP Negative Normal NEGATIVE [facility] Comment on above: Performed By: #### D REYES, UAMIC ####[facility] Dlnxtpxabr56[address] [place] [address]Dr. Chrissy Frazier PPX Negative Normal NEGATIVE [facility] Comment on above: Performed By: #### D REYES, UAMIC ####[facility] Bwrzmbjafz[address] [place] [address]Dr. Chrissy Frazier TCA Negative Normal NEGATIVE [facility] Comment on above: Performed By: #### D REYES UAMIC ####[facility] Lwdqqvlkdh[address]36[address] [place], [place] [address]Dr. Chrissy Frazier THC Positive Abnormal NEGATIVE [facility] Comment on above: Performed By: #### D REYES UAMIC ####[facility] Wxczwbried06[address] [place], [place] [address]Dr. Chrissy Frazier LACTATE/LACTIC ACIDon 2021 Lactate [Moles/Vol] 4.4 mmol/L Critically high 0.4-1.9 [facility] Comment on above: Performed By: #### L ACT ####[facility] Hyivrfwvzu[address] [place], [place] [address]Dr. Chrissy Frazier LIPASEon 07-01-2022 Lipase [Catalytic activity/Vol] 57.0 U/L Critically low 73.0-393.0 [facility] Comment on above: Performed By: #### A MY, PHOS, CMP, LIPA ####[facility] Nuveerlgvp[address] [place], [place] [address]Dr. Chrissy Frazier PHOSPHORUSon 07-01-2022 Phosphate [Mass/Vol] 1.4 mg/dL Critically low 2.6-4.7 [facility] Comment on above: Performed By: #### A MY, PHOS, CMP, LIPA ####[facility] Gstyftazwy9237[address] [place], [place] [address]Dr. Chrissy Frazier PROF 14(COMP METB)on 022 Albumin [Mass/Vol] 4.2 g/dL Normal 3.4-5.0 [facility] Comment on above: Performed By: #### A MY, PHOS, CMP, LIPA ####[facility] Fmzydxaqad6[address] [place] [address]Dr. Chrissy Frazier Albumin/Globulin [Mass ratio] 1.1 {ratio} Normal [facility] Comment on above: Performed By: #### A MY, PHOS, CMP, LIPA ####[facility] Hhzumffmer[address] [place] [address]Dr. Chrissy Frazier ALP [Catalytic activity/Vol] 73 U/L Normal 46-116 [facility] Comment on above: Performed By: #### A MY, PHOS, CMP, LIPA ####[facility] Xuumfoxjwv9284 [place] [address]Dr. Chrissy Frazier ALT [Catalytic activity/Vol] 43 U/L Normal 16-63 [facility] Comment on above: Performed By: #### A MY, PHOS, CMP, LIPA ####[facility] Ucbhoshbji62[address] [place] [address]Dr. Chrissy Frazier Anion gap [Moles/Vol] 19.0 mmol/L Normal [facility] Comment on above: Performed By: #### A MY, PHOS, CMP, LIPA ####[facility] Nifenkmjiy14[address] [place] [address]Dr. Chrissy Frazier AST [Catalytic activity/Vol] 21 U/L Normal 15-37 [facility] Comment on above: Performed By: #### A MY, PHOS, CMP, LIPA ####[facility] Dztdiatqak6[address] [place] [address]Dr. Chrissy Frazier Bilirubin [Mass/Vol] 0.5 mg/dL Normal 0.2-1.0 [facility] Comment on above: Performed By: #### A MY, PHOS, CMP, LIPA ####[facility] Hsmpaedwlz23[address] [place] [address]Dr. Chrissy Frazier Calcium [Mass/Vol] 9.3 mg/dL Normal 8.5-10.1 [facility] Comment on above: Performed By: #### A MY, PHOS, CMP, LIPA ####[facility] Ahsgdpswcu20[address] [place] [address]Dr. Chrissy Frazier Chloride [Moles/Vol] 103 mmol/L Normal 98-107 [facility] Comment on above: Performed By: #### A MY, PHOS, CMP, LIPA ####[facility] Qdgarjekpd2056 [place] [address]Dr. Chrissy Frazier CO2 [Moles/Vol] 21.1 mmol/L Normal 21.0-32.0 [facility] Comment on above: Performed By: #### A MY, PHOS, CMP, LIPA ####[facility] Uhmwbjnbhy256[address] [place], [place] [address]Dr. Chrissy Frazier Creatinine [Mass/Vol] 1.44 mg/dL Critically high 0.70-1.30 [facility] Comment on above: Performed By: #### A MY, PHOS, CMP, LIPA ####[facility] Ybjcjcetgz[address] [place], [place] [address]Dr. Chrissy Frazier EGFR-AF GUINEAN >60 Normal >=60 [facility] Comment on above: Performed By: #### A MY, PHOS, CMP, LIPA ####[facility] Cecxpotbhe[address] [place] [address]Dr. Chrissy Frazier EGFR-NON AF GUINEAN 57 mL/min/1.73m2 Critically low >=60 [facility] Comment on above: Performed By: #### A MY, PHOS, CMP, LIPA ####[facility] Bxfwnuupfx67[address] [place] [address]Dr. Chrissy Frazier Globulin (S) [Mass/Vol] 3.9 g/dL Normal [facility] Comment on above: Performed By: #### A MY, PHOS, CMP, LIPA ####[facility] Cdxrzqbgqe0[address] [place] [address]Dr. Chrissy Frazier Glucose [Mass/Vol] 148 mg/dL Critically high 74-106 [facility] Comment on above: Performed By: #### A MY, PHOS, CMP, LIPA ####[facility] Prfrueoaqb24[address] [place] [address]Dr. hCrissy Frazier Potassium [Moles/Vol] 3.1 mmol/L Critically low 3.5-5.1 [facility] Comment on above: Performed By: #### A MY, PHOS, CMP, LIPA ####[facility] Miydsmayuu9[address] [place] [address]Dr. Chrissy Frazier Protein [Mass/Vol] 8.1 g/dL Normal 6.4-8.2 [facility] Comment on above: Performed By: #### A MY, PHOS, CMP, LIPA ####[facility] Rbirkzheew00[address] [place] [address]Dr. Chrissy Frazier Sodium [Moles/Vol] 140 mmol/L Normal 136-145 [facility] Comment on above: Performed By: #### A MY, PHOS, CMP, LIPA ####[facility] Bzilwnsxyj8436 [place] [address]Dr. Chrissy Frazier Urea nitrogen [Mass/Vol] 10.0 mg/dL Normal 7.0-18.0 [facility] Comment on above: Performed By: #### A MY, PHOS, CMP, LIPA ####[facility] Wzmgpiychz05[address] [place] [address]Dr. Chrissy Frazier Urea nitrogen/Creatinine [Mass ratio] 6.9 mg/mg Normal [facility] Comment on above: Performed By: #### A MY, PHOS, CMP, LIPA ####[facility] Bpunjeemrw19[address] [place] [address]Dr. Chrissy Freddie UA RANDOM W/MICROSCOPICon BACTERIA TRACE Abnormal NONE SEEN [facility] Comment on above: Performed By: #### D REYES UAMIC ####[facility] Fojdpsbvpp17[address] [place] [address]Dr. Tishrowan Freddie Bilirubin Ql (U) Negative Normal NEGATIVE [facility] Comment on above: Performed By: #### D REYES UAMIC ####[facility] Xgcsfedspc0638 [place] [address]Dr. Chrissy Frazier CAST NONE SEEN Normal NONE SEEN [facility] Comment on above: Performed By: #### Amelie CHAMBERS UAMIC ####[facility] Oqrrgevgnt[address] [place], [place] [address]Dr. Chrissy Frazier Clarity (U) CLEAR Normal CLEAR [facility] Comment on above: Performed By: #### Amelie CHAMBERS UAMIC ####[facility] Bpcxporrhq9[address] [place] [address]Dr. Chrissy Frazier Color (U) YELLOW Normal YELLOW [facility] Comment on above: Performed By: #### Amelie CHAMBERS UAMIC ####[facility] Fwkreziksv0027[address] [place], [place] [address]Dr. Chrissy Frazier Crystals LM Nom (Urine sed) NONE SEEN Normal NONE SEEN [facility] Comment on above: Performed By: #### Amelie CHAMBERS UAMIC ####[facility] Wwdryjvxgk18[address] [place], [place] [address]Dr. Chrissy Frazier Epithelial cells LM Ql (Urine sed) RARE Normal NONE SEEN /RARE [facility] Comment on above: Performed By: #### Amelie CHAMBERS UAMIC ####[facility] Toaghqkomy0968[address] [place], [place] [address]Dr. Chrissy Frazier Glucose Ql (U) Negative Normal NEGATIVE [facility] Comment on above: Performed By: #### Amelie CHAMBERS UAMIC ####[facility] Vwnkwvakhk8568[address] [place], [place] [address]Dr. Chrissy Frazier Hemoglobin Ql (U) Negative Normal NEGATIVE [facility] Comment on above: Performed By: #### Amelie CHAMBERS UAMIC ####[facility] Pnxzifzsib[address] [place], [place] [address]Dr. Chrissy Frazier Ketones Ql (U) 40 mg/dl Abnormal NEGATIVE [facility] Comment on above: Performed By: #### Amelie CHAMBERS UAMIC ####[facility] Vdfgfpqqqe6[address] [place], [place] [address]Dr. Chrissy Frazier LEUKOCYTES Negative Normal NEGATIVE [facility] Comment on above: Performed By: #### Amelie CHAMBERS, UAMIC ####[facility] Lgxffxkldd88[address] [place] [address]Dr. Chrissy Frazier MUCOUS MODERATE Abnormal NONE SEEN [facility] Comment on above: Performed By: #### Amelie CHAMBERS, UAMIC ####[facility] Nybagnzohy5[address] [place] [address]Dr. Chrissy Frazier Nitrite Ql (U) Negative Normal NEGATIVE [facility] Comment on above: Performed By: #### Amelie CHAMBERS UAMIC ####[facility] Hoqsbwvrvm[address] [place], [place] [address]Dr. Chrissy Frazier pH (U) 6.0 [pH] Normal 5-9 [facility] Comment on above: Performed By: #### Amelie CHAMBERS UAMIC ####[facility] Efkzibgoxj69[address] [place], [place] [address]Dr. Chrissy Frazier RBC 0-2 Normal 0-2 [facility] Comment on above: Performed By: #### Amelie CHAMBERS UAMIC ####[facility] Amnxopzpkv74[address] [place], [place] [address]Dr. Chrissy Frazier SPEC GRAVITY 1.020 Normal 1.005-<=1.025 [facility] Comment on above: Performed By: #### Amelie CHAMBERS UAMIC ####[facility] Qshlduwyht5[address] [place], [place] [address]Dr. Chrissy Frazier UA PROTEIN Negative Normal NEGATIVE/ TRACE [facility] Comment on above: Performed By: #### Amelie CHAMBERS UAMIC ####[facility] Ectgnxiyju6[address] [place], [place] [address]Dr. Chrissy Frazier Urobilinogen Qn (U) 0.2 {Estrellita'U}/dL Normal 0.2 - 1. 0 [facility] Comment on above: Performed By: #### Amelie CHAMBERS UAMIC ####[facility] Jtmnkwsmdt54[address] [place], [place] [address]Dr. Chrissy Frazier WBC 0-2 Abnormal NONE SEEN [facility] Comment on above: Performed By: #### D RUGRPD, UAMIC ####[facility] Xmoekmnrvd0893 [place], [place] [address]Uu. Chrissy Frazier XR ABD FLAT UP_PA Enoch 07-01 XR ABD FLAT UP_PA CH Normal [facility] Covid-19 PCR (CVDTB)on SARS-CoV-2 (COVID-19) RNA RHIANNON+probe Ql (Unsp spec) Not detected Normal NOT DETECTED [facility] Comment on above: Result Comment: When [...] for this test is supported by the [facility] of Health and Human Service's declaration [...] be used). Performed By: #### [facility] ####[facility] Dstufgluzo6[address] [place], [place] [address]Vb. Chrissy Frazier SYMPTOMATIC COVID-19 ANTIGEN on 04-23-2022 EUA Statement SEE BELOW Normal The [facility] Comment on above: Result Comment: This [...] revoked sooner. Performed By: #### C VDAGS ####[facility] Hgicutldmq7[address] [place] [address]Dr. Chrissy Frazier SARS-CoV-2 (COVID-19) RNA RHIANNON+probe Ql (Unsp spec) Negative Normal NEGATIVE [facility] Comment on above: Performed By: #### C VDAGS ####[facility] Ptstgybeek[address] [place], [place] [address]Dr. Chrissy Frazier AMYLASEon 04-04-2022 Amylase [Catalytic activity/Vol] 40 U/L Normal 25-115 [facility] Comment on above: Performed By: #### C MP, TERRENCE, LIPA ####[facility] Hbttlxerrq[address] [place], [place] [address]Dr. Chrissy Frazier CBC AUTO DIFFon 04-04-2022 BASO # 0.1 103/ul Normal 0.0-0.1 [facility] Comment on above: Performed By: #### C BC ####[facility] Juwyefcoer[address] [place], [place] [address]Dr. Chrissy Frazier Basophils/100 WBC (Bld) 0.4 % Normal 0.2-2.0 [facility] Comment on above: Performed By: #### C BC ####[facility] Zqlkvyromm[address] [place], [place] [address]Dr. Chrissy Frazier EO # 0.1 103/ul Normal 0.0-0.7 [facility] Comment on above: Performed By: #### C BC ####[facility] Dgchxojhsi04[address] [place], [place] [address]Dr. Chrissy Frazier Eosinophils/100 WBC (Bld) 0.6 % Critically low 0.9-7.0 [facility] Comment on above: Performed By: #### C BC ####[facility] Dhbbqbxmhi[address] [place], [place] [address]Dr. Chrissy Frazier Erythrocyte distribution width (RBC) [Ratio] 13.2 % Normal 11.0-15.0 [facility] Comment on above: Performed By: #### C BC ####[facility] Mdbwmwgnkx[address] [place] [address]Dr. Chrissy Frazier Hematocrit (Bld) [Volume fraction] 48.3 % Normal 42.0-54.0 [facility] Comment on above: Performed By: #### C BC ####[facility] Hrsafyblfg[address] [place] [address]Dr. Chrissy Frazier Hemoglobin (Bld) [Mass/Vol] 16.1 g/dL Normal 14.0-18.0 [facility] Comment on above: Performed By: #### C BC ####[facility] Ftcilwipqh42[address] [place], [place] [address]Dr. Chrissy Frazier IG # 0.12 10e3/ul Critically high 0.00-0.03 [facility] Comment on above: Performed By: #### C BC ####[facility] Yecutkefks[address] [place], [place] [address]Dr. Chrissy Frazier IG % 0.9 % Critically high 0.0-0.5 [facility] Comment on above: Performed By: #### C BC ####[facility] Eshernwghy[address] [place], [place] [address]Dr. Chrissy Frazier LYMPH # 3.0 103/ul Normal 1.2-3.8 [facility] Comment on above: Performed By: #### C BC ####[facility] Fkcyrfmlph75[address] [place], [place] [address]Dr. Chrissy Frazier Lymphocytes/100 WBC (Bld) 22.3 % Normal 20.5-60.0 [facility] Comment on above: Performed By: #### C BC ####[facility] Ugcbfzkrch12[address] [place], [place] [address]DrNancy Frazier MANUAL DIFF REQ NO Normal [facility] Comment on above: Performed By: #### C BC ####[facility] Mlnscoricw7[address] [place], [place] [address]DrNancy Frazier MCH (RBC) [Entitic mass] 28.6 pg Normal 25.9-34.0 [facility] Comment on above: Performed By: #### C BC ####[facility] L[address]cadkjvcp[address] [place] [id number]. Chrissy Freddie MCHC (RBC) [Mass/Vol] 33.3 g/dL Normal 29.9-35.2 [facility] Comment on above: Performed By: #### C BC ####[facility] Jyggaugfgn0[address] [place] [address]Dr. Tishrowan Freddie MCV (RBC) [Entitic vol] 85.9 fL Normal 80.0-94.0 [facility] Comment on above: Performed By: #### C BC ####[facility] Rtxolkpdbv[address] [place], [place] [address]Dr. Chrissy Frazier MONO # 0.8 103/ul Normal 0.3-0.8 [facility] Comment on above: Performed By: #### C BC ####[facility] Bwydosfkmx5[address] [place], [place] [address]Dr. Chrissy Frazier Monocytes/100 WBC (Bld) 5.7 % Normal 1.7-12.0 [facility] Comment on above: Performed By: #### C BC ####[facility] Qzkitgvqon[address] [place], [place] [address]Dr. Chrissy Frazier NEUT # 9.3 103/ul Critically high 1.4-6.5 [facility] Comment on above: Performed By: #### C BC ####[facility] Nbrqyqdxoe[address] [place], [place] [address]Dr. Chrissy Frazier Neutrophils/100 WBC (Bld) 70.1 % Normal 43.0-75.0 [facility] Comment on above: Performed By: #### C BC ####[facility] Ratepgwnhy[address] [place], [place] [address]DrNancy Frazier Platelet mean volume (Bld) [Entitic vol] 10.3 fL Normal 9.5-13.5 [facility] Comment on above: Performed By: #### C BC ####[facility] Svfuayblsp[address] [place], [place] [address]Dr. Chrissy Frazier PLT 461 103/ul Critically high 150-450 [facility] Comment on above: Performed By: #### C BC ####[facility] Bptqceccll[address] [place] [address]Dr. Tishrowan Freddie RBC 5.62 106/ul Normal 4.70-6.10 [facility] Comment on above: Performed By: #### C BC ####[facility] Ahuxqcuhdq47[address] [place] [address]Dr. Chrissy Frazier WBC 13.3 103/ul Critically high 4.0-11.0 [facility] Comment on above: Performed By: #### C BC ####[facility] Zmqmpyrjch040[address] [place] [address]Dr. Chrissy Frazier LIPASEon 04-04-2022 Lipase [Catalytic activity/Vol] 118.0 U/L Normal 73.0-393.0 [facility] Comment on above: Performed By: #### C MP, TERRENCE, LIPA ####[facility] Xdxbssbpwn24[address] [place] [address]Dr. Chrissy Frazier PROF 14(COMP METB)on 022 Albumin [Mass/Vol] 4.3 g/dL Normal 3.4-5.0 [facility] Comment on above: Performed By: #### C MP, TERRENCE, LIPA ####[facility] Njivpjltui6[address] [place] [address]Dr. Chrissy Frazier Albumin/Globulin [Mass ratio] 1.0 {ratio} Normal [facility] Comment on above: Performed By: #### C MP, TERRENCE, LIPA ####[facility] Fmxotaiwrx65[address] [place] [address]Dr. Chrissy Frazier ALP [Catalytic activity/Vol] 84 U/L Normal 46-116 [facility] Comment on above: Performed By: #### C MP, TERRENCE, LIPA ####[facility] Vudpakiryu90[address] [place] [address]Dr. Chrissy Frazier ALT [Catalytic activity/Vol] 81 U/L Critically high 16-63 [facility] Comment on above: Performed By: #### C MP, TERRENCE, LIPA ####[facility] Aqodxytceg28[address] [place] [address]Dr. Chrissy Frazier Anion gap [Moles/Vol] 17.9 mmol/L Normal [facility] Comment on above: Performed By: #### C MP, TERRENCE, LIPA ####[facility] Rklghaeocq4[address] [place] [address]Dr. Chrissy Frazier AST [Catalytic activity/Vol] 25 U/L Normal 15-37 [facility] Comment on above: Performed By: #### C MP, TERRENCE, LIPA ####[facility] Czgpecotfc2[address] [place] [address]Dr. Chrissy Frazier Bilirubin [Mass/Vol] 0.5 mg/dL Normal 0.2-1.0 [facility] Comment on above: Performed By: #### C MP, TERRENCE, LIPA ####[facility] Rwlsuzgxsj1546 [place] [address]Dr. Chrissy Frazier Calcium [Mass/Vol] 9.6 mg/dL Normal 8.5-10.1 [facility] Comment on above: Performed By: #### C MP, TERRENCE, LIPA ####[facility] Wlwmalrcad83[address] [place] [address]Dr. Chrissy Frazier Chloride [Moles/Vol] 101 mmol/L Normal 98-107 [facility] Comment on above: Performed By: #### C MP, TERRENCE, LIPA ####[facility] Bwywxhnoak1705 [place] [address]Dr. Chrissy Frazier CO2 [Moles/Vol] 18.6 mmol/L Critically low 21.0-32.0 [facility] Comment on above: Performed By: #### C MP, TERRENCE, LIPA ####[facility] Awjvbewvbg9[address] [place] [address]Dr. Chrissy Frazier Creatinine [Mass/Vol] 1.39 mg/dL Critically high 0.70-1.30 [facility] Comment on above: Performed By: #### C MP, TERRENCE, LIPA ####[facility] Ixkjrcjqgu36[address] [place] [address]Dr. Chrissy Frazier EGFR-AF GUINEAN >60 Normal >=60 [facility] Comment on above: Performed By: #### C MP, TERRENCE, LIPA ####[facility] Uorrecvwyt[address] [place] [address]Dr. Chrissy Frazier EGFR-NON AF GUINEAN 59 mL/min/1.73m2 Critically low >=60 [facility] Comment on above: Performed By: #### C MP, TERRENCE, LIPA ####[facility] Rnvwklrdhz1106 [place] [address]Dr. Chrissy Frazier Globulin (S) [Mass/Vol] 4.3 g/dL Normal [facility] Comment on above: Performed By: #### C MP, TERRENCE, LIPA ####[facility] Xaennjfqnd3332 [place] [address]Dr. Chrissy Frazier Glucose [Mass/Vol] 132 mg/dL Critically high 74-106 [facility] Comment on above: Performed By: #### C MP, TERRENCE, LIPA ####[facility] Xhvgtutpna68[address] [place], [place] [address]Dr. Chrissy Frazier Potassium [Moles/Vol] 3.5 mmol/L Normal 3.5-5.1 [facility] Comment on above: Performed By: #### C MP, TERRENCE, LIPA ####[facility] Vddqdyxvxq6[address] [place], [place] [address]Dr. Chrissy Frazier Protein [Mass/Vol] 8.6 g/dL Critically high 6.4-8.2 [facility] Comment on above: Performed By: #### C MP, TERRENCE, LIPA ####[facility] Skzptgcjin8314 [place] [address]Dr. Chrissy Frazier Sodium [Moles/Vol] 134 mmol/L Critically low 136-145 [facility] Comment on above: Performed By: #### C MP, TERRENCE, LIPA ####[facility] Motpvsrlho0734 [place] [address]Dr. Chrissy Frazier Urea nitrogen [Mass/Vol] 8.0 mg/dL Normal 7.0-18.0 [facility] Comment on above: Performed By: #### C MP, TERRENCE, LIPA ####[facility] Uswqmclndx4476 [place] [address]Dr. Chrissy Frazier Urea nitrogen/Creatinine [Mass ratio] 5.8 mg/mg Normal [facility] Comment on above: Performed By: #### C TERRENCE ADAIR LIPA ####[facility] Xqckmdispc0255 [place] [address]Dr. Chrissy Frazier XR ABD FLAT UP_PA Enoch 04-04 XR ABD FLAT UP_PA CH Normal [facility] AMMONIAon 03-31-2022 Ammonia (P) [Moles/Vol] 19 umol/L Normal 11-32 [facility] Comment on above: Performed By: #### A MM ####[facility] Lhkfgabmzc5[address] [place], [place] [address]Dr. Chrissy Freddie CBC AUTO DIFFon 03-31-2022 BASO # 0.1 103/ul Normal 0.0-0.1 [facility] Comment on above: Performed By: #### C BC ####[facility] Ottwsoxlmh4[address] [place], [place] [address]Dr. Chrissy Freddie Basophils/100 WBC (Bld) 0.5 % Normal 0.2-2.0 [facility] Comment on above: Performed By: #### C BC ####[facility] Fykhfwuuyt67[address] [place], [place] [address]Dr. Chrissy Frazier EO # 0.2 103/ul Normal 0.0-0.7 [facility] Comment on above: Performed By: #### C BC ####[facility] Jtwnkqsgxv3[address] [place], [place] [address]Dr. Tishrowan Frazier Eosinophils/100 WBC (Bld) 1.6 % Normal 0.9-7.0 [facility] Comment on above: Performed By: #### C BC ####[facility] Pvesshxsrf246[address] [place], [place] [address]Dr. Chrissy Freddie Erythrocyte distribution width (RBC) [Ratio] 13.2 % Normal 11.0-15.0 [facility] Comment on above: Performed By: #### C BC ####[facility] Fadlndjizl[address] [place], [place] [address]Dr. Chrissy Frazier Hematocrit (Bld) [Volume fraction] 42.1 % Normal 42.0-54.0 [facility] Comment on above: Performed By: #### C BC ####[facility] Bexitsoetk76[address] [place] [address]Dr. Chrissy Frazier Hemoglobin (Bld) [Mass/Vol] 14.3 g/dL Normal 14.0-18.0 [facility] Comment on above: Performed By: #### C BC ####[facility] Ycsbnjfmoz5208 [place] [address]Dr. Chrissy Frazier IG # 0.05 10e3/ul Critically high 0.00-0.03 [facility] Comment on above: Performed By: #### C BC ####[facility] Zgxdtcadbh[address] [place] [address]Dr. Chrissy Frazier IG % 0.5 % Normal 0.0-0.5 [facility] Comment on above: Performed By: #### C BC ####[facility] Imkunsrpva038[address] [place] [address]Dr. Chrissy Frazier LYMPH # 2.9 103/ul Normal 1.2-3.8 [facility] Comment on above: Performed By: #### C BC ####[facility] Ugtwrovbjl5708 [place] [address]Dr. Chrissy Frazier Lymphocytes/100 WBC (Bld) 25.7 % Normal 20.5-60.0 [facility] Comment on above: Performed By: #### C BC ####[facility] Rxbnbcwvws01[address] [place] [address]Dr. Chrissy Frazier MANUAL DIFF REQ NO Normal [facility] Comment on above: Performed By: #### C BC ####[facility] Ueujsuvorr3[address] [place] [address]Dr. Crhissy Frazier MCH (RBC) [Entitic mass] 29.2 pg Normal 25.9-34.0 [facility] Comment on above: Performed By: #### C BC ####[facility] Irevgtejem3434 [place] [address]Dr. Chrissy Frazier MCHC (RBC) [Mass/Vol] 34.0 g/dL Normal 29.9-35.2 [facility] Comment on above: Performed By: #### C BC ####[facility] Hlbwedtqno01[address] [place] [address]Dr. Chrissy Frazier MCV (RBC) [Entitic vol] 85.9 fL Normal 80.0-94.0 [facility] Comment on above: Performed By: #### C BC ####[facility] Eyputgmoim0914 [place] [address]Dr. Chrissy Freddie MONO # 1.0 103/ul Critically high 0.3-0.8 [facility] Comment on above: Performed By: #### C BC ####[facility] Otbzxeygim5551 [place] [address]Dr. Chrissy Frazier Monocytes/100 WBC (Bld) 8.6 % Normal 1.7-12.0 [facility] Comment on above: Performed By: #### C BC ####[facility] Rdorgtiagv5[address] [place], [place] [address]Dr. Chrissy Frazier NEUT # 7.0 103/ul Critically high 1.4-6.5 [facility] Comment on above: Performed By: #### C BC ####[facility] Dkcjtsyzxs569[address] [place], [place] [address]Dr. Tishrowan Frazier Neutrophils/100 WBC (Bld) 63.1 % Normal 43.0-75.0 [facility] Comment on above: Performed By: #### C BC ####[facility] Lbpcujkdim5353 [place] [address]Dr. Tishrowan Frazier Platelet mean volume (Bld) [Entitic vol] 10.4 fL Normal 9.5-13.5 [facility] Comment on above: Performed By: #### C BC ####[facility] Bscjvvfopq2173 [place] [address]Dr. Chrissy Frazier PLT 308 103/ul Normal 150-450 [facility] Comment on above: Performed By: #### C BC ####[facility] Hdcwageztp6789[address] [place], [place] [address]Dr. Chrissy Frazier RBC 4.90 106/ul Normal 4.70-6.10 [facility] Comment on above: Performed By: #### C BC ####[facility] Zznsilauvn2270 [place] [address]Dr. Tishrowan Freddie WBC 11.1 103/ul Critically high 4.0-11.0 [facility] Comment on above: Performed By: #### C BC ####[facility] Izddyyozjp3006 [place] [address]Dr. Chrissy Frazier PROF 14(COMP METB)on 022 Albumin [Mass/Vol] 3.5 g/dL Normal 3.4-5.0 [facility] Comment on above: Performed By: #### C MP ####[facility] Erepytiwlk2255[address] [place], [place] [address]Dr. Chrissy Frazier Albumin/Globulin [Mass ratio] 0.9 {ratio} Normal [facility] Comment on above: Performed By: #### C MP ####[facility] Ytxlccnekj1112[address] [place], [place] [address]Dr. Tishrowan Frazier ALP [Catalytic activity/Vol] 68 U/L Normal 46-116 [facility] Comment on above: Performed By: #### C MP ####[facility] Cjztqqqora0266[address] [place], [place] [address]Dr. Chrissy Frazier ALT [Catalytic activity/Vol] 113 U/L Critically high 16-63 [facility] Comment on above: Performed By: #### C MP ####[facility] Whuusvbwsh8126[address] [place], [place] [address]Dr. Chrissy Frazier Anion gap [Moles/Vol] 14.0 mmol/L Normal [facility] Comment on above: Performed By: #### C MP ####[facility] Kvzqyvhtpz2666[address] [place], [place] [address]Dr. Chrissy Frazier AST [Catalytic activity/Vol] 31 U/L Normal 15-37 [facility] Comment on above: Performed By: #### C MP ####[facility] Fsibfpwhqb8835[address] [place], [place] [address]Dr. Chrissy Frazier Bilirubin [Mass/Vol] 0.6 mg/dL Normal 0.2-1.0 [facility] Comment on above: Performed By: #### C MP ####[facility] Knnkntzhzv1214[address] [place], [place] [address]Dr. Chrissy Frazier Calcium [Mass/Vol] 8.4 mg/dL Critically low 8.5-10.1 [facility] Comment on above: Performed By: #### C MP ####[facility] Sjtfchqzmi2460[address] [place], [place] [address]Dr. Chrissy Frazier Chloride [Moles/Vol] 101 mmol/L Normal 98-107 [facility] Comment on above: Performed By: #### C MP ####[facility] Higagqzbdl43333[address] [place], [place] [address]Dr. Chrissy Frazier CO2 [Moles/Vol] 24.2 mmol/L Normal 21.0-32.0 [facility] Comment on above: Performed By: #### C MP ####[facility] Krfwkdmtpi511[address] [place], [place] [address]Dr. Chrissy Frazier Creatinine [Mass/Vol] 1.15 mg/dL Normal 0.70-1.30 [facility] Comment on above: Performed By: #### C MP ####[facility] Writlzeeoc3968[address] [place], [place] [address]Dr. Chrissy Frazier EGFR-AF GUINEAN >60 Normal >=60 [facility] Comment on above: Performed By: #### C MP ####[facility] Kcqyxvmvxb499[address] [place], [place] [address]Dr. Chrissy Frazier EGFR-NON AF GUINEAN >60 Normal >=60 [facility] Comment on above: Performed By: #### C MP ####[facility] Snaabxjgbu6570[address] [place], [place] [address]Dr. Chrissy Frazier Globulin (S) [Mass/Vol] 3.8 g/dL Normal [facility] Comment on above: Performed By: #### C MP ####[facility] Doilheelrf5536[address] [place], [place] [address]Dr. Chrissy Frazier Glucose [Mass/Vol] 100 mg/dL Normal 74-106 [facility] Comment on above: Performed By: #### C MP ####[facility] Zlyivaknpt37[address] [place] [address]Dr. Chrissy Frazier Potassium [Moles/Vol] 3.2 mmol/L Critically low 3.5-5.1 [facility] Comment on above: Performed By: #### C MP ####[facility] Obrevmyixi584[address] [place], [place] [address]Dr. Chrissy Frazier Protein [Mass/Vol] 7.3 g/dL Normal 6.4-8.2 [facility] Comment on above: Performed By: #### C MP ####[facility] Jspyugtfta1469[address] [place], [place] [address]Dr. Chrissy Frazier Sodium [Moles/Vol] 136 mmol/L Normal 136-145 [facility] Comment on above: Performed By: #### C MP ####[facility] Ryehmgqmoh5369[address] [place], [place] [address]Dr. Chrissy Frazier Urea nitrogen [Mass/Vol] 13.0 mg/dL Normal 7.0-18.0 [facility] Comment on above: Performed By: #### C MP ####[facility] Cuzahsstog6018[address] [place], [place] [address]Dr. Chrissy Frazier Urea nitrogen/Creatinine [Mass ratio] 11.3 mg/mg Normal [facility] Comment on above: Performed By: #### C MP ####[facility] Nkchbfbiey470[address] [place], [place] [address]Dr. Chrissy Frazier AMMONIAon 03-30-2022 Ammonia (P) [Mass/Vol] ug/dL Critically low 11-32 [facility] Comment on above: Performed By: #### A MM ####[facility] Ygddqqqeki565[address] [place], [place] [address]Dr. Chrissy Frazier CBC AUTO DIFFon 03-30-2022 BASO # 0.1 103/ul Normal 0.0-0.1 [facility] Comment on above: Performed By: #### C BC ####[facility] Oijitqcxff0004[address] [place], [place] [address]Dr. Chrissy Frazier Basophils/100 WBC (Bld) 0.5 % Normal 0.2-2.0 [facility] Comment on above: Performed By: #### C BC ####[facility] Vrmiqbapjr29[address] [place] [address]Dr. Chrissy Frazier EO # 0.1 103/ul Normal 0.0-0.7 [facility] Comment on above: Performed By: #### C BC ####[facility] Oguyeskrnj918[address] [place], [place] [address]Dr. Chrissy Frazier Eosinophils/100 WBC (Bld) 1.1 % Normal 0.9-7.0 [facility] Comment on above: Performed By: #### C BC ####[facility] Fkabbfjzbx4329[address] [place], [place] [address]Dr. Chrissy Frazier Erythrocyte distribution width (RBC) [Ratio] 13.4 % Normal 11.0-15.0 [facility] Comment on above: Performed By: #### C BC ####[facility] Cfkzpkkmce7433[address] [place], [place] [address]Dr. Chrissy Frazier Hematocrit (Bld) [Volume fraction] 45.8 % Normal 42.0-54.0 [facility] Comment on above: Performed By: #### C BC ####[facility] Pswwzvlcmw2023[address] [place], [place] [address]Dr. Chrissy Frazier Hemoglobin (Bld) [Mass/Vol] 14.9 g/dL Normal 14.0-18.0 [facility] Comment on above: Performed By: #### C BC ####[facility] Idnuarevoo8610[address] [place], [place] [address]Dr. Chrissy Frazier IG # 0.05 10e3/ul Critically high 0.00-0.03 [facility] Comment on above: Performed By: #### C BC ####[facility] Phyzzmblwi346[address] [place], [place] [address]Dr. Chrissy Frazier IG % 0.5 % Normal 0.0-0.5 [facility] Comment on above: Performed By: #### C BC ####[facility] Qadjpinwaq820[address] [place], [place] [address]Dr. Chrissy Frazier LYMPH # 3.0 103/ul Normal 1.2-3.8 [facility] Comment on above: Performed By: #### C BC ####[facility] Ibpglgcpmg4[address] [place] [address]Dr. Chrissy Frazier Lymphocytes/100 WBC (Bld) 30.2 % Normal 20.5-60.0 [facility] Comment on above: Performed By: #### C BC ####[facility] Spedkocaqu64[address] [place] [address]Dr. Chrissy Frazier MANUAL DIFF REQ NO Normal [facility] Comment on above: Performed By: #### C BC ####[facility] Ncuovafwti6280 [place] [address]Dr. Chrissy Frazier MCH (RBC) [Entitic mass] 28.4 pg Normal 25.9-34.0 [facility] Comment on above: Performed By: #### C BC ####[facility] Iwjxmzevmb1325[address] [place], [place] [address]Dr. Chrissy Frazier MCHC (RBC) [Mass/Vol] 32.5 g/dL Normal 29.9-35.2 [facility] Comment on above: Performed By: #### C BC ####[facility] Soockhpnry7[address] [place], [place] [address]Dr. Chrissy Frazier MCV (RBC) [Entitic vol] 87.4 fL Normal 80.0-94.0 [facility] Comment on above: Performed By: #### C BC ####[facility] Lihpjhdzmp44[address] [place], [place] [address]Dr. Chrissy Frazier MONO # 0.8 103/ul Normal 0.3-0.8 [facility] Comment on above: Performed By: #### C BC ####[facility] Etjajfzqch664[address] [place], [place] [address]Dr. Chrissy Frazier Monocytes/100 WBC (Bld) 7.9 % Normal 1.7-12.0 [facility] Comment on above: Performed By: #### C BC ####[facility] Ywqycplhum7204[address] [place], [place] [address]Dr. Yirowan Frazier NEUT # 5.9 103/ul Normal 1.4-6.5 [facility] Comment on above: Performed By: #### C BC ####[facility] Koqlzsnric77[address] [place] [address]DrNancy Frazier Neutrophils/100 WBC (Bld) 59.8 % Normal 43.0-75.0 [facility] Comment on above: Performed By: #### C BC ####[facility] Nnbnrvsokn6870 [place] [address]DrNancy Frazier Platelet mean volume (Bld) [Entitic vol] 10.1 fL Normal 9.5-13.5 [facility] Comment on above: Performed By: #### C BC ####[facility] Mgisjvaesm797[address] [place], [place] [address]DrNancy Frazier PLT 320 103/ul Normal 150-450 [facility] Comment on above: Performed By: #### C BC ####[facility] Tunorrzcau7157[address] [place], [place] [address]DrNancy Frazier RBC 5.24 106/ul Normal 4.70-6.10 [facility] Comment on above: Performed By: #### C BC ####[facility] Nrgtlffbvi6465[address] [place], [place] [address]DrNancy Frazier WBC 9.9 103/ul Normal 4.0-11.0 [facility] Comment on above: Performed By: #### C BC ####[facility] Elcimhhmuk7820[address] [place], [place] [address]Dr. Chrissy Frazier PROF 14(COMP METB)on 022 Albumin [Mass/Vol] 3.9 g/dL Normal 3.4-5.0 [facility] Comment on above: Performed By: #### C MP ####[facility] Vdbzfwovqz12[address] [place], [place] [address]DrNancy Frazier Albumin/Globulin [Mass ratio] 1.1 {ratio} Normal [facility] Comment on above: Performed By: #### C MP ####[facility] Otcqjjpbrf9[address] [place], [place] [address]DrNancy Lowe Frazier ALP [Catalytic activity/Vol] 88 U/L Normal 46-116 [facility] Comment on above: Performed By: #### C MP ####[facility] Egrsrsizmo27[address] [place] [address]Dr. Chrissy Frazier ALT [Catalytic activity/Vol] 161 U/L Critically high 16-63 [facility] Comment on above: Performed By: #### C MP ####[facility] Wwuuelcvbp6179[address] [place], [place] [address]Dr. Chrissy Freddie Anion gap [Moles/Vol] 12.3 mmol/L Normal [facility] Comment on above: Performed By: #### C MP ####[facility] Qozfpafhej0487[address] [place], [place] [address]Dr. Chrissy Freddie AST [Catalytic activity/Vol] 64 U/L Critically high 15-37 [facility] Comment on above: Performed By: #### C MP ####[facility] Ntdnpehxho8317[address] [place], [place] [address]Dr. Chrissy Freddie Bilirubin [Mass/Vol] 0.8 mg/dL Normal 0.2-1.0 [facility] Comment on above: Performed By: #### C MP ####[facility] Vwatigaccj8956[address] [place], [place] [address]Dr. Chrissy Freddie Calcium [Mass/Vol] 8.4 mg/dL Critically low 8.5-10.1 [facility] Comment on above: Performed By: #### C MP ####[facility] Onixocpczy2367[address] [place], [place] [address]Dr. Chrissy Freddie Chloride [Moles/Vol] 103 mmol/L Normal 98-107 [facility] Comment on above: Performed By: #### C MP ####[facility] Kwovaxsrqn[address] [place], [place] [address]Dr. Chrissy Frazier CO2 [Moles/Vol] 26.5 mmol/L Normal 21.0-32.0 [facility] Comment on above: Performed By: #### C MP ####[facility] Nnvjgumkzj[address] [place], [place] [address]Dr. Chrissy Frazier Creatinine [Mass/Vol] 1.24 mg/dL Normal 0.70-1.30 [facility] Comment on above: Performed By: #### C MP ####[facility] [address]kcjt[address] [place] [address]Dr. Chrissy Frazier EGFR-AF GUINEAN >60 Normal >=60 [facility] Comment on above: Performed By: #### C MP ####[facility] [address]udnllfv[address] [place] [address]Dr. Chrissy Freddie EGFR-NON AF GUINEAN >60 Normal >=60 [facility] Comment on above: Performed By: #### C MP ####[facility] Mxwudchllg[address] [place] [address]Dr. Chrissy Freddie Globulin (S) [Mass/Vol] 3.7 g/dL Normal [facility] Comment on above: Performed By: #### C MP ####[facility] Umumssxgvc[address] [place], [place] [address]Dr. Chrissy Freddie Glucose [Mass/Vol] 108 mg/dL Critically high 74-106 [facility] Comment on above: Performed By: #### C MP ####[facility] Dfrxqgvpmt[address] [place] [address]Dr. Chrissy Freddie Potassium [Moles/Vol] 3.8 mmol/L Normal 3.5-5.1 [facility] Comment on above: Performed By: #### C MP ####[facility] Onacszlzyp[address] [place] [address]Dr. Chrissy Freddie Protein [Mass/Vol] 7.6 g/dL Normal 6.4-8.2 [facility] Comment on above: Performed By: #### C MP ####[facility] Hptuyducgw43[address] [place] [address]Dr. Chrissy Frazier Sodium [Moles/Vol] 138 mmol/L Normal 136-145 [facility] Comment on above: Performed By: #### C MP ####[facility] Uijoqcpjms[address] [place] [address]Dr. Chrissy Freddie Urea nitrogen [Mass/Vol] 12.0 mg/dL Normal 7.0-18.0 [facility] Comment on above: Performed By: #### C MP ####[facility] Mqyqtysewm6[address] [place], [place] [address]Dr. Chrissy Frazier Urea nitrogen/Creatinine [Mass ratio] 9.7 mg/mg Normal [facility] Comment on above: Performed By: #### C MP ####[facility] Rewlxccdwk97[address] [place], [place] [address]Dr. Chrissy Frazier AMMONIAon 03-29-2022 Ammonia (P) [Moles/Vol] 27 umol/L Normal 11-32 [facility] Comment on above: Performed By: #### A MM ####[facility] Mymlpdcqws[address] [place], [place] [address]Dr. Chrissy Frazier AMYLASEon 03-29-2022 Amylase [Catalytic activity/Vol] 29 U/L Normal 25-115 [facility] Comment on above: Performed By: #### L IPA, TERRENCE ####[facility] Blhvbdgreh[address] [place], [place] [address]Dr. Chrissy Frazier CBC AUTO DIFFon 03-29-2022 BASO # 0.0 103/ul Normal 0.0-0.1 [facility] Comment on above: Performed By: #### C BC ####[facility] Ysievjvvxu38[address] [place], [place] [address]Dr. Chrissy Frazier Basophils/100 WBC (Bld) 0.2 % Normal 0.2-2.0 [facility] Comment on above: Performed By: #### C BC ####[facility] Lgzpgetyit6864[address] [place], [place] [address]Dr. Chrissy Frazier EO # 0.0 103/ul Normal 0.0-0.7 [facility] Comment on above: Performed By: #### C BC ####[facility] Meizthdmnl5064[address] [place], [place] [address]Dr. Chrissy Frazier Eosinophils/100 WBC (Bld) 0.4 % Critically low 0.9-7.0 [facility] Comment on above: Performed By: #### C BC ####[facility] Rinofophov5[address] [place], [place] [address]Dr. Chrissy Frazier Erythrocyte distribution width (RBC) [Ratio] 13.6 % Normal 11.0-15.0 [facility] Comment on above: Performed By: #### C BC ####[facility] Lflsrrmayx52[address] [place] [address]Dr. Chrissy Frazier Hematocrit (Bld) [Volume fraction] 45.2 % Normal 42.0-54.0 [facility] Comment on above: Performed By: #### C BC ####[facility] Qkedilxwmg0854[address] [place], [place] [address]Dr. Chrissy Frazier Hemoglobin (Bld) [Mass/Vol] 14.8 g/dL Normal 14.0-18.0 [facility] Comment on above: Performed By: #### C BC ####[facility] Wsqzpwgdru7065[address] [place], [place] [address]Dr. Tishrowan Frazier IG # 0.03 10e3/ul Normal 0.00-0.03 [facility] Comment on above: Performed By: #### C BC ####[facility] Sdbjlqqgec7[address] [place], [place] [address]Dr. Chrissy Frazier IG % 0.3 % Normal 0.0-0.5 [facility] Comment on above: Performed By: #### C BC ####[facility] Qegoyucqfy59[address] [place], [place] [address]Dr. Chrissy Frazier LYMPH # 2.0 103/ul Normal 1.2-3.8 [facility] Comment on above: Performed By: #### C BC ####[facility] Lrgnwrbytk9644[address] [place], [place] [address]Dr. Chrissy Freddie Lymphocytes/100 WBC (Bld) 18.3 % Critically low 20.5-60.0 [facility] Comment on above: Performed By: #### C BC ####[facility] Ptiqvekpuz20[address] [place], [place] [address]Dr. Tishrowan Frazier MANUAL DIFF REQ NO Normal [facility] Comment on above: Performed By: #### C BC ####[facility] Cggrytiboq[address] [place], [place] [address]Dr. Chrissy Frazier MCH (RBC) [Entitic mass] 28.5 pg Normal 25.9-34.0 [facility] Comment on above: Performed By: #### C BC ####[facility] Qcuykglors[address] [place] [address]Dr. Chrissy Frazier MCHC (RBC) [Mass/Vol] 32.7 g/dL Normal 29.9-35.2 [facility] Comment on above: Performed By: #### C BC ####[facility] Qcsljaufoo[address] [place], [place] [address]Dr. Chrissy Frazier MCV (RBC) [Entitic vol] 87.1 fL Normal 80.0-94.0 [facility] Comment on above: Performed By: #### C BC ####[facility] Wfqebytndv8[address] [place], [place] [address]Dr. Chrissy Frazier MONO # 0.9 103/ul Critically high 0.3-0.8 [facility] Comment on above: Performed By: #### C BC ####[facility] Zyzqbalfwb44[address] [place], [place] [address]Dr. Chrissy Frazier Monocytes/100 WBC (Bld) 8.6 % Normal 1.7-12.0 [facility] Comment on above: Performed By: #### C BC ####[facility] Ftgqsgazpt7[address] [place], [place] [address]Dr. Tishrowan Frazier NEUT # 7.8 103/ul Critically high 1.4-6.5 [facility] Comment on above: Performed By: #### C BC ####[facility] Kzvfxfvvfe23[address] [place], [place] [address]Dr. Chrissy Frazier Neutrophils/100 WBC (Bld) 72.2 % Normal 43.0-75.0 [facility] Comment on above: Performed By: #### C BC ####[facility] Vyugubwmsn[address] [place], [place] [address]Dr. Chrissy Frazier Platelet mean volume (Bld) [Entitic vol] 10.1 fL Normal 9.5-13.5 [facility] Comment on above: Performed By: #### C BC ####[facility] Qccgkxcelq60[address] [place] [address]Dr. Chrissy Frazier PLT 329 103/ul Normal 150-450 [facility] Comment on above: Performed By: #### C BC ####[facility] Vwsmfhvaoc5[address] [place] [address]Dr. Chrissy Frazier RBC 5.19 106/ul Normal 4.70-6.10 [facility] Comment on above: Performed By: #### C BC ####[facility] Peuydkahqz17[address] [place] [address]Dr. Chrissy Frazier WBC 10.8 103/ul Normal 4.0-11.0 [facility] Comment on above: Performed By: #### C BC ####[facility] Cyzvjhganx48[address] [place] [address]Dr. Chrissy Frazier LIPASEon 03-29-2022 Lipase [Catalytic activity/Vol] 58.0 U/L Critically low 73.0-393.0 [facility] Comment on above: Performed By: #### L TERRENCE VICTORIA ####[facility] Uzrufncvur[address] [place] [address]Dr. Chrissy Frazier NM HEPATOBILIARY SCAN W EFon 03-29-2022 NM HEPATOBILIARY SCAN W EF Normal [facility] PROF 14(COMP METB)on 022 Albumin [Mass/Vol] 3.8 g/dL Normal 3.4-5.0 [facility] Comment on above: Performed By: #### C MP ####[facility] S[address]zstnupk[address] [place] [address]Dr. Chrissy Frazier Albumin/Globulin [Mass ratio] 1.0 {ratio} Normal [facility] Comment on above: Performed By: #### C MP ####[facility] Emtzrhprrj[address] [place] [address]Dr. Tishrowan Frazier ALP [Catalytic activity/Vol] 69 U/L Normal 46-116 [facility] Comment on above: Performed By: #### C MP ####[facility] Aurukgzjqx0121 [place] [address]Dr. Chrissy Frazier ALT [Catalytic activity/Vol] 117 U/L Critically high 16-63 [facility] Comment on above: Performed By: #### C MP ####[facility] Illcbledyw16[address] [place] [address]Dr. Chrissy Frazier Anion gap [Moles/Vol] 16.7 mmol/L Normal [facility] Comment on above: Performed By: #### C MP ####[facility] Vbhzocavhq230[address] [place] [address]Dr. Chrissy Frazier AST [Catalytic activity/Vol] 77 U/L Critically high 15-37 [facility] Comment on above: Performed By: #### C MP ####[facility] Ctuaewxhwy2[address] [place] [address]Dr. Chrissy Freddie Bilirubin [Mass/Vol] 1.5 mg/dL Critically high 0.2-1.0 [facility] Comment on above: Performed By: #### C MP ####[facility] Qfqyidhpzq8743 [place] [address]Dr. Tishrowan Freddie Calcium [Mass/Vol] 8.1 mg/dL Critically low 8.5-10.1 [facility] Comment on above: Performed By: #### C MP ####[facility] Ypkjibjsit2214 [place] [address]Dr. Chrissy Freddie Chloride [Moles/Vol] 101 mmol/L Normal 98-107 [facility] Comment on above: Performed By: #### C MP ####[facility] Zumgicqhnk6523 [place] [address]Dr. Chrissy Freddie CO2 [Moles/Vol] 24.5 mmol/L Normal 21.0-32.0 [facility] Comment on above: Performed By: #### C MP ####[facility] Fcytjjicvg0910 [place] [address]Dr. Chrissy Freddie Creatinine [Mass/Vol] 1.17 mg/dL Normal 0.70-1.30 [facility] Comment on above: Performed By: #### C MP ####[facility] Kuoqanwoqp67[address] [place] [address]Dr. Chrissy Freddie EGFR-AF GUINEAN >60 Normal >=60 [facility] Comment on above: Performed By: #### C MP ####[facility] Ixzjulflik9175 [place] [address]Dr. Chrissy Frazier EGFR-NON AF GUINEAN >60 Normal >=60 [facility] Comment on above: Performed By: #### C MP ####[facility] Slhlljidfi22[address] [place] [address]Dr. Chrissy Frazier Globulin (S) [Mass/Vol] 3.9 g/dL Normal [facility] Comment on above: Performed By: #### C MP ####[facility] Lmxzfdbyef1806 [place] [address]Dr. Chrissy Frazier Glucose [Mass/Vol] 104 mg/dL Normal 74-106 [facility] Comment on above: Performed By: #### C MP ####[facility] Ycyxcwwxac9975 [place] [address]Dr. Chrissy Frazier Potassium [Moles/Vol] 3.2 mmol/L Critically low 3.5-5.1 [facility] Comment on above: Performed By: #### C MP ####[facility] Gqvbxhkbwy[address] [place] [address]Dr. Chrissy Frazier Protein [Mass/Vol] 7.7 g/dL Normal 6.4-8.2 [facility] Comment on above: Performed By: #### C MP ####[facility] Fezaqfewer8[address] [place] [address]Dr. Chrissy Frazier Sodium [Moles/Vol] 139 mmol/L Normal 136-145 [facility] Comment on above: Performed By: #### C MP ####[facility] Ioohhwqaxp1236 [place] [address]Dr. Chrissy Frazier Urea nitrogen [Mass/Vol] 11.0 mg/dL Normal 7.0-18.0 [facility] Comment on above: Performed By: #### C MP ####[facility] Cpinthjbzo3832 [place] [address]Dr. Chrissy Frazier Urea nitrogen/Creatinine [Mass ratio] 9.4 mg/mg Normal [facility] Comment on above: Performed By: #### C MP ####[facility] Msonjpzrfi2254 [place] [address]Dr. Chrissy Frazier US SINGLE QUAD RT UPPERon US SINGLE QUAD RT UPPER Normal [facility] AMMONIAon 03-28-2022 Ammonia (P) [Moles/Vol] 12 umol/L Normal 11-32 [facility] Comment on above: Performed By: #### A MM ####[facility] Rztzwsznjj4369 [place] [address]Dr. Chrissy Frazier CBC AUTO DIFFon 03-28-2022 BASO # 0.0 103/ul Normal 0.0-0.1 [facility] Comment on above: Performed By: #### C BC ####[facility] [address]mamcayths[address] [place], [place] [address]Dr. Chrissy Frazier Basophils/100 WBC (Bld) 0.1 % Critically low 0.2-2.0 [facility] Comment on above: Performed By: #### C BC ####[facility] Jmfsxpegfq[address] [place], [place] [address]Dr. Chrissy Frazier EO # 0.0 103/ul Normal 0.0-0.7 [facility] Comment on above: Performed By: #### C BC ####[facility] Mawfruweyk[address] [place], [place] [address]Dr. Chrissy Frazier Eosinophils/100 WBC (Bld) 0.0 % Critically low 0.9-7.0 [facility] Comment on above: Performed By: #### C BC ####[facility] Qehxpyoygr[address] [place], [place] [address]Dr. Chrissy Frazier Erythrocyte distribution width (RBC) [Ratio] 14.0 % Normal 11.0-15.0 [facility] Comment on above: Performed By: #### C BC ####[facility] Skkehbtjok[address] [place], [place] [address]Dr. Chrissy Frazier Hematocrit (Bld) [Volume fraction] 44.2 % Normal 42.0-54.0 [facility] Comment on above: Performed By: #### C BC ####[facility] Upvicfzspn4397[address] [place], [place] [address]Dr. Chrissy Freddie Hemoglobin (Bld) [Mass/Vol] 14.7 g/dL Normal 14.0-18.0 [facility] Comment on above: Performed By: #### C BC ####[facility] Wokzdjulib27[address] [place] [address]Dr. Tishrowan Frazier IG # 0.10 10e3/ul Critically high 0.00-0.03 [facility] Comment on above: Performed By: #### C BC ####[facility] Mdwczrmvyv9661 [place] [address]Dr. Chrissy Frazier IG % 0.5 % Normal 0.0-0.5 [facility] Comment on above: Performed By: #### C BC ####[facility] Djxultfeco4924 [place] [address]Dr. Chrissy Frazier LYMPH # 2.6 103/ul Normal 1.2-3.8 [facility] Comment on above: Performed By: #### C BC ####[facility] Neglxeiscu9009 [place] [address]Dr. Chrissy Frazier Lymphocytes/100 WBC (Bld) 13.8 % Critically low 20.5-60.0 [facility] Comment on above: Performed By: #### C BC ####[facility] Zkelosnlpy1141 [place] [address]Dr. Tishrowan Frazier MANUAL DIFF REQ NO Normal [facility] Comment on above: Performed By: #### C BC ####[facility] Hoiyteahwn[address]3 [place] [address]Dr. Chrissy Freddie MCH (RBC) [Entitic mass] 29.0 pg Normal 25.9-34.0 [facility] Comment on above: Performed By: #### C BC ####[facility] Cwsmewinua1867 [place] [address]Dr. Chrissy Freddie MCHC (RBC) [Mass/Vol] 33.3 g/dL Normal 29.9-35.2 [facility] Comment on above: Performed By: #### C BC ####[facility] Vahcqhfhtj3541 [place] [address]Dr. Chrissy Freddie MCV (RBC) [Entitic vol] 87.2 fL Normal 80.0-94.0 [facility] Comment on above: Performed By: #### C BC ####[facility] Fmieudndre6474 [place] [address]Dr. Chrissy Frazier MONO # 1.1 103/ul Critically high 0.3-0.8 [facility] Comment on above: Performed By: #### C BC ####[facility] Ilzzqvbbzv4918 [place] [address]Dr. Chrissy Frazier Monocytes/100 WBC (Bld) 5.9 % Normal 1.7-12.0 [facility] Comment on above: Performed By: #### C BC ####[facility] Qtnhqsljbw8[address] [place], [place] [address]Dr. Chrissy Freddie NEUT # 15.1 103/ul Critically high 1.4-6.5 [facility] Comment on above: Performed By: #### C BC ####[facility] Nsejkjkjoa8740[address] [place], [place] [address]Dr. Tishrowan Frazier Neutrophils/100 WBC (Bld) 79.7 % Critically high 43.0-75.0 [facility] Comment on above: Performed By: #### C BC ####[facility] Hjlvrqawkf76[address] [place] [address]Dr. Chrissy Frazier Platelet mean volume (Bld) [Entitic vol] 10.3 fL Normal 9.5-13.5 [facility] Comment on above: Performed By: #### C BC ####[facility] Xgcagxwhlc[address] [place], [place] [address]Dr. Chrissy Frazier PLT 358 103/ul Normal 150-450 [facility] Comment on above: Performed By: #### C BC ####[facility] Tjrsoamara[address] [place], [place] [address]Dr. Chrissy Frazier RBC 5.07 106/ul Normal 4.70-6.10 [facility] Comment on above: Performed By: #### C BC ####[facility] Rawfoyxpuf[address] [place], [place] [address]Dr. Chrissy Frazier WBC 18.9 103/ul Critically high 4.0-11.0 [facility] Comment on above: Performed By: #### C BC ####[facility] Lbrbkbtprb6366 [place] [address]DrNancy Frazier PROF 14(COMP METB)on 022 Albumin [Mass/Vol] 3.9 g/dL Normal 3.4-5.0 [facility] Comment on above: Performed By: #### C MP ####[facility] Gdaggmgmpj55[address] [place] [address]Dr. Chrissy Frazier Albumin/Globulin [Mass ratio] 1.1 {ratio} Normal [facility] Comment on above: Performed By: #### C MP ####[facility] Xdsnivujxx5497 [place] [address]Dr. Chrissy Frazier ALP [Catalytic activity/Vol] 65 U/L Normal 46-116 [facility] Comment on above: Performed By: #### C MP ####[facility] Czsdxjodya9[address] [place], [place] [address]Dr. Chrissy Frazier ALT [Catalytic activity/Vol] 46 U/L Normal 16-63 [facility] Comment on above: Performed By: #### C MP ####[facility] Nhagysrcaa[address] [place], [place] [address]Dr. Chrissy Frazier Anion gap [Moles/Vol] 13.2 mmol/L Normal [facility] Comment on above: Performed By: #### C MP ####[facility] Lovyjodatn7[address] [place], [place] [address]DrNancy Frazier AST [Catalytic activity/Vol] 33 U/L Normal 15-37 [facility] Comment on above: Performed By: #### C MP ####[facility] Qrddwrdabz5764[address] [place], [place] [address]Dr. Chrissy Frazier Bilirubin [Mass/Vol] 0.8 mg/dL Normal 0.2-1.0 [facility] Comment on above: Performed By: #### C MP ####[facility] Cqfnqlolmx3712[address] [place], [place] [address]Dr. Chrissy Frazier Calcium [Mass/Vol] 8.1 mg/dL Critically low 8.5-10.1 [facility] Comment on above: Performed By: #### C MP ####[facility] Qhixpvzqqr5988 [place] [address]Dr. Chrissy Frazier Chloride [Moles/Vol] 102 mmol/L Normal 98-107 [facility] Comment on above: Performed By: #### C MP ####[facility] Ndrqongkvz6939 [place] [address]Dr. Chrissy Frazier CO2 [Moles/Vol] 24.0 mmol/L Normal 21.0-32.0 [facility] Comment on above: Performed By: #### C MP ####[facility] Ogrdrzogut77[address] [place], [place] [address]Dr. Chrissy Frazier Creatinine [Mass/Vol] 1.26 mg/dL Normal 0.70-1.30 [facility] Comment on above: Performed By: #### C MP ####[facility] Axveijsypq7377[address] [place], [place] [address]Dr. Chrissy Frazier EGFR-AF GUINEAN >60 Normal >=60 [facility] Comment on above: Performed By: #### C MP ####[facility] Amuipeymgq3664[address] [place], [place] [address]Dr. Chrissy Frazier EGFR-NON AF GUINEAN >60 Normal >=60 [facility] Comment on above: Performed By: #### C MP ####[facility] Jxhmettvyx8734 [place] [address]Dr. Chrissy Frazier Globulin (S) [Mass/Vol] 3.7 g/dL Normal [facility] Comment on above: Performed By: #### C MP ####[facility] Ximsmqrhaw6059 [place] [address]Dr. Chrissy Frazier Glucose [Mass/Vol] 119 mg/dL Critically high 74-106 [facility] Comment on above: Performed By: #### C MP ####[facility] Ziaxxdmvws6933 [place] [address]Dr. Chrissy Frazier Potassium [Moles/Vol] 3.2 mmol/L Critically low 3.5-5.1 [facility] Comment on above: Performed By: #### C MP ####[facility] Yvjdfxabog0966 [place] [address]Dr. Chrissy Frazier Protein [Mass/Vol] 7.6 g/dL Normal 6.4-8.2 [facility] Comment on above: Performed By: #### C MP ####[facility] Fxhsfrzomu7241 [place] [address]Dr. Chrissy Frazier Sodium [Moles/Vol] 136 mmol/L Normal 136-145 [facility] Comment on above: Performed By: #### C MP ####[facility] Vogxnlmxwl[address] [place], [place] [address]Dr. Chrissy Frazier Urea nitrogen [Mass/Vol] 14.0 mg/dL Normal 7.0-18.0 [facility] Comment on above: Performed By: #### C MP ####[facility] Ikpoaaqkwd9940[address] [place], [place] [address]Dr. Chrissy Frazier Urea nitrogen/Creatinine [Mass ratio] 11.1 mg/mg Normal [facility] Comment on above: Performed By: #### C MP ####[facility] Cebfrphacq8[address] [place], [place] [address]Dr. Chrissy Freddie CBC W MANUAL DIFFon 03-27-20 22 ATYPICAL LYMPH # Normal [facility] Comment on above: Performed By: #### C BCMAN ####[facility] Pdorzcintn[address] [place], [place] [address]Dr. Chrissy Frazier ATYPICAL LYMPH % Normal [facility] Comment on above: Performed By: #### C BCMAN ####[facility] Feggajcyzn79[address] [place], [place] [address]Dr. Chrissy Frazier BAND # 0.0 103/ul Normal 0.0-0.3 [facility] Comment on above: Performed By: #### C BCMAN ####[facility] Ambmepodqk5[address] [place] [address]Dr. Chrissy Frazier BAND % 0 % Normal 0-5 [facility] Comment on above: Performed By: #### C BCMAN ####[facility] Dxzctjtjfu1374 [place] [address]Dr. Chrissy Frazier BASOM # 0.00 103/ul Normal 0.00-0.10 [facility] Comment on above: Performed By: #### C BCMAN ####[facility] Dxekirxzcu3412 [place] [address]Dr. Chrissy Frazier BASOM % 0.0 % Critically low 0.2-2.0 [facility] Comment on above: Performed By: #### C BCMAN ####[facility] Qrenjercpx2856 [place] [address]Dr. Chrissy Frazier BLAST # Normal [facility] Comment on above: Performed By: #### C BCLEANDRO ####[facility] Juuvzgrhvk9610 [place] [address]Dr. Chrissy Frazier BLAST % Normal [facility] Comment on above: Performed By: #### C BCLEANDRO ####[facility] Rscbehvuqi44[address] [place], [place] [address]Dr. Chrissy Frazier CORRECTED WBC Normal 4.0-11.0 [facility] Comment on above: Performed By: #### C BCLEANDRO ####[facility] Yzptdsvfil[address] [place], [place] [address]Dr. Chrissy Frazier EOS # 0.00 103/ul Normal 0.00-0.70 [facility] Comment on above: Performed By: #### C BCLEANDRO ####[facility] Lqrnbyfzzt8728 [place] [address]Dr. Chrissy Frazier EOS% 0.0 % Critically low 0.9-7.0 [facility] Comment on above: Performed By: #### C BCLEANDRO ####[facility] Wfnzjdgmwy5956 [place] [address]Dr. Chrissy Frazier HCT 47.3 % Normal 42.0-54.0 [facility] Comment on above: Performed By: #### C BCLEANDRO ####[facility] Reuminrdrw[address] [place], [place] [address]Dr. Chrissy Frazier HGB 16.4 g/dl Normal 14.0-18.0 [facility] Comment on above: Performed By: #### C ANTONETTE ####[facility] [address]ib[address] [place], [place] [address]Qu. Chrissy Frazier LYMPHM # 2.31 103/ul Normal 1.20-3.80 [facility] Comment on above: Performed By: #### Silverio WHITMAN ####[facility] Gvccpgvloq4[address] [place], [place] [address]Vs. Chrissy Frazier LYMPHM% 9.0 % Critically low 20.5-60.0 [facility] Comment on above: Performed By: #### C ANTONETTE ####[facility] Awmuacdsrl6215 [place] [address]Dr. Chrissy Frazier MCH 28.6 pg Normal 25.9-34.0 [facility] Comment on above: Performed By: #### Silverio WHITMAN ####[facility] Jwixxjpzwe9583 [place] [address]Dr. Chrissy Frazier MCHC 34.7 g/dl Normal 29.9-35.2 [facility] Comment on above: Performed By: #### Silverio WHITMAN ####[facility] Wemdoyahqi[address] [place] [id number]. Chrissy Frazier MCV 82.4 fL Normal 80.0-94.0 [facility] Comment on above: Performed By: #### Silverio WHITMAN ####[facility] Tnganvlsml[address] [place] [id number]. Chrissy Frazier METAMYELOCYTE # Normal The [facility] Comment on above: Performed By: #### Silverio WHITMAN ####[facility] Ufrgmawrsn[address] [place] [id number]. Chrissy Frazier METAMYELOCYTE % Normal [facility] Comment on above: Performed By: #### C ANTONETTE ####[facility] Bnmvsizdkl4572 [place] [id number]. Chrissy Frazier MONOM# 3.85 103/ul Critically high 0.30-0.80 [facility] Comment on above: Performed By: #### Silverio WHITMAN ####[facility] Cqnopeyklu2494 [place] [address]Dr. Chrissy Frazier MONOM% 15.0 % Critically high 1.7-12.0 [facility] Comment on above: Performed By: #### C ANTONETTE ####[facility] Tfbpcgtxex4217 [place] [address]Dr. Chrissy Frazier MPV 10.6 fL Normal 9.5-13.5 [facility] Comment on above: Performed By: #### C ANTONETTE ####[facility] Hwetafzxqq7698 [place] [address]Dr. Chrissy Frazier MYELOCYTE # Normal [facility] Comment on above: Performed By: #### C ANTONETTE ####[facility] Wqtxmloisl0342 [place] [address]Dr. Chrissy Frazier MYELOCYTE % Normal [facility] Comment on above: Performed By: #### C ANTONETTE ####[facility] Nxbacilmbw9941 [place] [address]Dr. Chrissy Frazier NRBC Normal [facility] Comment on above: Performed By: #### C ANTONETTE ####[facility] Bygnqzdnqy5692 [place] [address]Dr. Chrissy Frazier PLT 471 103/ul Critically high 150-450 [facility] Comment on above: Performed By: #### C ANTONETTE ####[facility] Oliqelzunr2034 [place] [id number]. Chrissy Frazier RBC 5.74 106/ul Normal 4.70-6.10 [facility] Comment on above: Performed By: #### C ANTONETTE ####[facility] Vadltithfr1674 [place] [address]Dr. Chrissy Frazier RDW 13.7 % Normal 11.0-15.0 [facility] Comment on above: Performed By: #### C ANTONETTE ####[facility] Ryefqxtisn6878 [place] [address]Dr. Chrissy Frazier SEG # 19.53 103/ul Critically high 1.40-6.50 The [facility] Comment on above: Performed By: #### C ANTONETTE ####[facility] Bxguegdujs14[address] [place] [address]Dr. Tishrowan Frazier SEG % 76.0 % Critically high 43.0-75.0 [facility] Comment on above: Performed By: #### C BCMAN ####[facility] Xjevzknhjh8[address] [place] [address]Dr. Tishrowan Frazier TOXIC GRANULATION SLIGHT Normal The [facility] Comment on above: Result Comment: few vacoules Performed By: #### C BCLEANDRO ####[facility] Cklqxjdjee2863 [place] [address]Dr. Chrissy Frazier WBC 25.7 103/ul Critically high 4.0-11.0 The [facility] Comment on above: Performed By: #### C ANTONETTE ####[facility] Cerrpusols[address] [place] [address]Dr. Chrissy Frazier LACTATE/LACTIC ACIDon 2021 Lactate [Moles/Vol] 2.4 mmol/L Critically high 0.4-1.9 [facility] Comment on above: Performed By: #### L ACT ####[facility] Myckmvvwfr1692 [place] [address]Dr. Chrissy Frazier Lactate [Moles/Vol] 3.5 mmol/L Critically high 0.4-1.9 [facility] Comment on above: Performed By: #### L ACT ####[facility] Ckaxmusygw0216 [place] [address]Dr. Chrissy Frazier LIPASEon 03-27-2022 Lipase [Catalytic activity/Vol] 43.0 U/L Critically low 73.0-393.0 [facility] Comment on above: Performed By: #### C MP, LIPA ####[facility] Dzgmmdyifq6312 [place] [address]Dr. Chrissy Frazier PROF 14(COMP METB)on 022 Albumin [Mass/Vol] 4.7 g/dL Normal 3.4-5.0 The [facility] Comment on above: Performed By: #### C MP, LIPA ####[facility] Zzloscnyuo5596 [place] [address]Dr. Chrissy Frazier Albumin/Globulin [Mass ratio] 1.1 {ratio} Normal The [facility] Comment on above: Performed By: #### C MP, LIPA ####[facility] Iemfjmewdl1085 [place] [address]Dr. Chrissy Frazier ALP [Catalytic activity/Vol] 69 U/L Normal 46-116 [facility] Comment on above: Performed By: #### C MP, LIPA ####[facility] Lptrfifbgy2766 [place] [address]Dr. Chrissy Frazier ALT [Catalytic activity/Vol] 47 U/L Normal 16-63 [facility] Comment on above: Performed By: #### C MP, LIPA ####[facility] G[address]kmqumq[address] [place], [place] [address]Dr. Chrissy Freddie Anion gap [Moles/Vol] 23.2 mmol/L Normal [facility] Comment on above: Performed By: #### C MP, LIPA ####[facility] Oshuvpztwj[address] [place], [place] [address]Dr. Chrissy Freddie AST [Catalytic activity/Vol] 23 U/L Normal 15-37 [facility] Comment on above: Performed By: #### C MP, LIPA ####[facility] Mwczihvchm[address] [place], [place] [address]Dr. Chrissy Freddie Bilirubin [Mass/Vol] 0.7 mg/dL Normal 0.2-1.0 [facility] Comment on above: Performed By: #### C MP, LIPA ####[facility] Wbrudxhyaa[address] [place], [place] [address]Dr. Chrissy Freddie Calcium [Mass/Vol] 9.2 mg/dL Normal 8.5-10.1 [facility] Comment on above: Performed By: #### C MP, LIPA ####[facility] Rlbnljkcbv[address] [place], [place] [address]Dr. Tishrowan Freddie Chloride [Moles/Vol] 97 mmol/L Critically low 98-107 [facility] Comment on above: Performed By: #### C MP, LIPA ####[facility] Bjiswujpzm[address] [place], [place] [address]Dr. Yirowan Frazier CO2 [Moles/Vol] 18.2 mmol/L Critically low 21.0-32.0 [facility] Comment on above: Performed By: #### C MP, LIPA ####[facility] Khsxhuwhrr[address] [place] [address]Dr. Chrissy Frazier Creatinine [Mass/Vol] 1.77 mg/dL Critically high 0.70-1.30 [facility] Comment on above: Performed By: #### C MP, LIPA ####[facility] Hedimwascp[address] [place], [place] [address]Dr. Chrissy Frazier EGFR-AF GUINEAN 54 mL/min/1.73m2 Critically low >=60 [facility] Comment on above: Performed By: #### C MP, LIPA ####[facility] Zmkbxqdhpu[address] [place], [place] [address]Dr. Chrissy Frazier EGFR-NON AF GUINEAN 45 mL/min/1.73m2 Critically low >=60 [facility] Comment on above: Performed By: #### C MP, LIPA ####[facility] Qwqlipyarg[address] [place], [place] [address]Dr. Chrissy Frazier Globulin (S) [Mass/Vol] 4.4 g/dL Normal [facility] Comment on above: Performed By: #### C MP, LIPA ####[facility] Cayevrkexo[address] [place], [place] [address]Dr. Chrissy Frazier Glucose [Mass/Vol] 131 mg/dL Critically high 74-106 [facility] Comment on above: Performed By: #### C MP, LIPA ####[facility] Itlcejjoik[address] [place], [place] [address]Dr. Chrissy Frazier Potassium [Moles/Vol] 3.4 mmol/L Critically low 3.5-5.1 [facility] Comment on above: Performed By: #### C MP, LIPA ####[facility] Iqvussabct[address] [place], [place] [address]Dr. Chrissy Frazier Protein [Mass/Vol] 9.1 g/dL Critically high 6.4-8.2 [facility] Comment on above: Performed By: #### C MP, LIPA ####[facility] Dmumgxxkst6531 [place], [place] [address]Hp. Chrissy Frazier Sodium [Moles/Vol] 135 mmol/L Critically low 136-145 [facility] Comment on above: Performed By: #### C MP, LIPA ####[facility] Cltjclvaoh8046 [place], [place] [address]Bv. Chrissy Frazier Urea nitrogen [Mass/Vol] 19.0 mg/dL Critically high 7.0-18.0 [facility] Comment on above: Performed By: #### C MANA, LIPA ####[facility] Juaizawynu[address] [place] [id number]. Chrissy Frazier Urea nitrogen/Creatinine [Mass ratio] 10.7 mg/mg Normal [facility] Comment on above: Performed By: #### C MANA, LIPA ####[facility] Rpvgjvmqlp0893 [place] [address]Dr. Chrissy Frazier BMPon 11-03-2020 Anion gap [Moles/Vol] 14 mmol/L Normal 6-16 [facility] Comment on above: Performed By: #### 2 [id number], [id number], [id number] #### [facility] [address] [place] [address] Calcium [Mass/Vol] 9.0 mg/dL Normal 8.9-11.1 [facility] Comment on above: Performed By: #### 2 [id number], [id number], [id number] #### [facility] [address] [place] [address] Chloride [Moles/Vol] 104 mmol/L Normal 101-111 [facility] Comment on above: Performed By: #### 2 507235, [id number], [id number] #### [facility] [address] [place] [address] CO2 [Moles/Vol] 21 mmol/L Normal 21-31 [facility] Comment on above: Performed By: #### 2 046956, 8142370, [id number] #### [facility] [address] [place] [address] Creatinine [Mass/Vol] 1.3 mg/dL Normal 0.5-1.3 [facility] Comment on above: Performed By: #### 2 976075, 9873101, [id number] #### [facility] [address] [place] [address] Glucose [Mass/Vol] 111 mg/dL Normal 55-199 [facility] Comment on above: Result Comment: If t his glucose result represents a fasting glucose, interpretation should refer to the following reference range: 55-99 mg/dL Performed By: #### 2 956837, [id number], [id number] #### [facility] [address] [place] [address] Potassium [Moles/Vol] 2.9 mmol/L Low 3.5-5.3 [facility] Comment on above: Performed By: #### 2 186534, 7291058, [id number] #### [facility] [address] [place] [address] Sodium [Moles/Vol] 136 mmol/L Normal 135-145 [facility] Comment on above: Performed By: #### 2 706106, 8842637, [id number] #### [facility] [address] [place] [address] Urea nitrogen [Mass/Vol] 14 mg/dL Normal 5-21 [facility] Comment on above: Performed By: #### 2 780223, 2485699, [id number] #### [facility] [address] [place] [address] Urea nitrogen/Creatinine [Mass ratio] 11 No Units Normal 10-20 [facility] Comment on above: Performed By: #### 2 182088, 5497208, [id number] #### [facility] [address] [place] [address] Lipase Levelon 11-03-2020 Lipase [Catalytic activity/Vol] 66 unit/L High 13-58 [facility] Comment on above: Performed By: #### 2 772246, [id number], [id number] #### [facility] [address] [place] [address] Physician Orderon 11-03-2020 Physician Order [id number] 3#1.00CD:127 Normal [facility] eGFRon 11-03-2020 GFR/1.73 sq M predicted among blacks MDRD (S/P/Bld) [Vol rate/Area] mL/min/{1.73_m2} Normal >=59 [facility] Comment on above: Order Comment: Order added by Discern Expert. Result Comment: eGFR is race adjusted. AA=. Performed By: #### 2 495291, 7796823, [id number] #### [facility] [address] [place] [address] GFR/1.73 sq M predicted among non-blacks MDRD (S/P/Bld) [Vol rate/Area] mL/min/{1.73_m2} Normal >=59 [facility] Comment on above: Order Comment: Order added by Discern Expert. Result Comment: [employer] lindsay kidney disease could be indicated at eGFR's of less than 60 mL/min/1.73m2. Kidney failure is indicated at less than 15 mL/min/1.73m2. Performed By: #### 2 830945, 0787059, [id number] #### [facility] [address] [place] [address] Encounters Encounter Date Encounter Type Care Provider Facility Start: 05-16-2024 End: 05-16-2024 ambulatory TUNG NORTHEIM Not Available Start: 03-07-2024 End: 03-07-2024 ambulatory TUNG NORTHEIM Not Available Start: 03-30-2023 ambulatory Luis Angel Muniz cility:[facility] Start: 01-03-2023 End: 01-04-[address] MELODY MARIO . Facility: Start: 01-03-2023 End: 01-04-2023 ambulatory RAQUEL BANKS Facility:[facility] Start: 12-29-2022 End: 12-30-[address] MELODY MARIO . Facility:[facility] Start: 12-13-2022 End: 12-14-2022 ambulatory [facility] Start: 11-24-2022 End: 11-24-2022 ambulatory [facility] Start: 11-16-2022 End: 11-17-[address] [...] Date Payer Category Payer Self-pay 1990 Unknown [id number] 01.06. [id number] 1990 Unknown [id number] 1990 Unknown [id number] 0.1.258545.3.579.2 1990 Unknown [id number] 0.1.240647.3.579.2593 1990 Unknown [id number] ..[id number] 0.1.204158.3.579.259 1990 Unknown [id number] 2.16.84 0.1.640320.3.579.2.593 1990 Unknown [id number] 2.16.84 0.1.743247.3.579.2.593 1990 Unknown [id number] 2.16.84 0.1.955077.3.579.2.593 1990 Unknown [id number] 2.16.84 0.1.828820.3.579.2.593 1990 Unknown [id number] 2.16.84 0.1.740866.3.579.2.593 1990 Unknown [id number] 2.16.84 0.1.463189.3.579.2.593 1990 Unknown [id number] 2.16.84 0.1.923801.3.579.2.593 1990 Unknown [id number] 2.16.84 0.1.643539.3.579.2.593 1990 Unknown [id number] 2.16.84 0.1.307673.3.579.2.1259 1990 Unknown [id number] 2.16.84 0.1.864326.3.579.2.1259 1959 Private Health Insurance [id number] Unknown [id number] 2.16.8 40.1.403901.3.579.2.531 Progress note 11-24-2022 Note Date & Type [...] report that his father had a fatal [place] at the age of 54. Stress test [...] section and content) DATE CREATED AUTHOR 11/04/2020 [facility] DATE CREATED AUTHOR AUTHOR'S ORGANIZ ATION 01/08/2023 [facility] DATE CREATED AUTHOR AUTHOR'S ORGANIZ ATION 02/07/2023 [facility] DATE CREATED AUTHOR AUTHOR'S ORGANIZ ATION 04/01/2023 [facility] DATE CREATED AUTHOR AUTHOR'S ORGANIZ ATION 05/17/2024 [facility] FOR RECORDS PERTAINING TO PATIENTS WHO ARE [...] BE BASED ON THE PRIMARY CLINICAL RECORDS. [employer] provides no warranty or guarantee of the accuracy or completeness of information in this document.
== END 2024-06-12 10:55 | disposition home or self-care (01) ==
LOC: EC 10:54
PROVIDERS: PCP Family Medicine; Visit Provider Podiatrist Foot & Ankle Surgery
DX: M19.171 Post-traumatic osteoarthritis, right ankle and foot (principal)
CPT/HCPCS: 73630

== ENCOUNTER 2024-06-18 13:08 | Outpatient (RCR) | payer OTHER, SELFPAY | END 2024-06-26 10:35 | disposition home or self-care (01) | LOC: PT 13:08 | PROVIDERS: PCP Family Medicine; Visit Provider Podiatrist Foot & Ankle Surgery | DX: M19.171 Post-traumatic osteoarthritis, right ankle and foot (principal) | CPT/HCPCS: 97110; 97112; 97116; 97161 ==

== ENCOUNTER 2024-06-25 12:09 | Outpatient (OUT) | payer OTHER, SELFPAY ==
[2024-06-25 13:00] LABS: Alanine Aminotransferase 29 U/L (16-63); Albumin Level 3.5 g/dL (3.4-5.0); Alkaline Phosphatase 73 U/L (46-116); Aspartate Amino Transferase 13 U/L (15-37); BUN Creatinine Ratio 11.7; Bilirubin Total 0.3 mg/dL (0.2-1.0); Calcium 8.8 mg/dL (8.5-10.1); Carbon Dioxide 25.8 mmol/L (21.0-32.0); Chloride 106 mmol/L (98-107); Estimated GFR (African America >60 (>=60); Estimated GFR (Non-African Ame >60 (>=60); Globulin 3.4 g/dL; Glucose 100 mg/dL (74-106); Potassium 3.8 mmol/L (3.5-5.1); Sodium 141 mmol/L (136-145); Total Protein 6.9 g/dL (6.4-8.2)
[2024-06-26 04:10] LABS: Lithium (Eskalith(R)), Serum 0.3 mmol/L (0.5-1.2)
== END 2024-06-25 12:10 | disposition home or self-care (01) ==
LOC: LAB 12:10
PROVIDERS: PCP Family Medicine; Visit Provider Family Medicine
DX: F31.9 Bipolar disorder, unspecified (principal); Z79.899 Other long term (current) drug therapy
CPT/HCPCS: 36415; 80053; 80178

== ENCOUNTER 2024-07-10 10:20 | Outpatient (OUT) | payer OTHER, SELFPAY ==
--- NOTE | 2024-07-10 | XR_ITS ---
The [address] [address] Patient Name: PAULINA CHARLES MRN: [id number] date: 1990 Sex: M Assigned Patient Location: Current Patient Location: Accession/Order Number: [id number] Exam Date: 07/10/2024 10:23 Report Date: 07/11/2024 06:47 At the request of: SHALINI IVAN Procedure: XR foot RT min 3V PROCEDURE: XR foot RT min 3V HISTORY: RIGHT FOOT PAIN COMPARISON: XR foot right 06/12/2024 FINDINGS: BONES:Mechanical fusion of the navicular-medial cuneiform via bone staple and likely screws; no appreciable hardware fracture loosening. No bone fracture dislocation. No significant loss of plantar arch. SOFT TISSUES:No visible soft tissue swelling. EFFUSION:None visible. OTHER: Negative. XR/XR foot RT min 3V IMPRESSION: 1. Stable surgical changes without of hardware failure. Electronically authenticated by: KYREE DOHERTY Date: 07/11/2024 06:47
--- OUTSIDE RECORDS SUMMARY | 2024-07-10 10:26 | XMS_ITS | CCD ---
Author Organization [facility] CliniSyar Care Team Providers Care Hop Weigher Name Role Phone RAQUEL BANKS Referring Unavailable [...] to adverse reactions to drug (disorder) 09-28-20 [facility] Repository (1 source) Sulfamethoxazole / Trimethoprim; Translations: [SULFAMETHOXAZOLE-TR IMETHOPRIM] Drug Allergy 01-27-20 [facility] Repository (1 source) Clarithromycin Drug Allergy [facility] Repository (1 source) Sulfamethoxazole / Trimethoprim Drug Allergy 05-27-20 17 [facility] Repository (1 source) Sulfamethoxazole Drug Allergy 03-20-20 [facility] Repository (1 source) Trimethoprim Drug Allergy 03-20-20 [facility] Repository Problems Active Problems Problem Classification [...] 11-16-2022 Episodic Other aftercare (1 source) Other leverman (current) drug therapy; Translations: [OTH JAIL CURRENT DRUG THERAPY] Onset: 02-07-2023 Episodic Other [...] IGG ABS 0.09 Index Value Normal 0.00-0.79 [facility] Comment on above: Result Comment: Nega tive <0.80 Equivocal 0.80 - 0.89 Positive >0.89 Performed By: #### H PYLLC ####[facility] Ju[address]kjifp[address] [place] [address]Dr. Chrissy Frazier AMYLASEon 01-04-2023 Amylase [Catalytic activity/Vol] 34 U/L Normal 25-115 [facility] Comment on above: Performed By: #### A MY ####[facility] Mrsmppqwld45[address] [place], [place] [address]Dr. Chrissy Freddie CBC AUTO DIFFon 01-04-2023 BASO # 0.0 103/ul Normal 0.0-0.1 [facility] Comment on above: Performed By: #### C BC ####[facility] Xtnulcsmbw525[address] [place], [place] [address]Dr. Chrissy Frazier Basophils/100 WBC (Bld) 0.1 % Critically low 0.2-2.0 [facility] Comment on above: Performed By: #### C BC ####[facility] Hthecwkeiv7[address] [place], [place] [address]Dr. Tishrowan Frazier EO # 0.0 103/ul Normal 0.0-0.7 [facility] Comment on above: Performed By: #### C BC ####[facility] Vlljxzyuco32[address] [place], [place] [address]Dr. Chrissy Frazier Eosinophils/100 WBC (Bld) 0.1 % Critically low 0.9-7.0 [facility] Comment on above: Performed By: #### C BC ####[facility] Aytaqdfjcp99[address] [place], [place] [address]DrNancy Frazier Erythrocyte distribution width (RBC) [Ratio] 14.0 % Normal 11.0-15.0 [facility] Comment on above: Performed By: #### C BC ####[facility] Dlngbxvdvy7038[address] [place], [place] [address]Dr. Chrissy Frazier Hematocrit (Bld) [Volume fraction] 40.4 % Critically low 42.0-54.0 [facility] Comment on above: Performed By: #### C BC ####[facility] Olcbhfexnp20[address] [place] [address]Dr. Chrissy Frazier Hemoglobin (Bld) [Mass/Vol] 13.8 g/dL Critically low 14.0-18.0 [facility] Comment on above: Performed By: #### C BC ####[facility] Jbzztunhmo76[address] [place] [address]Dr. Chrissy Freddie IG # 0.05 10e3/ul Critically high 0.00-0.03 [facility] Comment on above: Performed By: #### C BC ####[facility] Asepliilge12[address] [place] [address]Dr. Tishrowan Frazier IG % 0.3 % Normal 0.0-0.5 [facility] Comment on above: Performed By: #### C BC ####[facility] Rnjmakmbzx611[address] [place], [place] [address]Dr. Chrissy Frazier LYMPH # 1.7 103/ul Normal 1.2-3.8 [facility] Comment on above: Performed By: #### C BC ####[facility] Udspygvwrr6776 [place] [address]Dr. Chrissy Freddie Lymphocytes/100 WBC (Bld) 11.9 % Critically low 20.5-60.0 [facility] Comment on above: Performed By: #### C BC ####[facility] Iuewusoyku7[address] [place] [address]Dr. Chrissy Frazier MANUAL DIFF REQ NO Normal [facility] Comment on above: Performed By: #### C BC ####[facility] Unknehyzhj8565 [place] [id number]. Chrissy Freddie MCH (RBC) [Entitic mass] 29.3 pg Normal 25.9-34.0 [facility] Comment on above: Performed By: #### C BC ####[facility] Ihlvxdkwso1382 [place] [id number]. Tishrowan Frazier MCHC (RBC) [Mass/Vol] 34.2 g/dL Normal 29.9-35.2 [facility] Comment on above: Performed By: #### C BC ####[facility] Esrsrpcrvl7578 [place] [id number]. Chrissy Frazier MCV (RBC) [Entitic vol] 85.8 fL Normal 80.0-94.0 [facility] Comment on above: Performed By: #### C BC ####[facility] Yngswgywug8946 [place] [id number]. Chrissy Freddie MONO # 0.6 103/ul Normal 0.3-0.8 [facility] Comment on above: Performed By: #### C BC ####[facility] Jdfwdifeuf5372 [place] [address]Dr. Chrissy Freddie Monocytes/100 WBC (Bld) 4.2 % Normal 1.7-12.0 [facility] Comment on above: Performed By: #### C BC ####[facility] Znigrgrorb814[address] [place], [place] [address]Dr. Chrissy Frazier NEUT # 12.0 103/ul Critically high 1.4-6.5 [facility] Comment on above: Performed By: #### C BC ####[facility] Xiuxfnyxtt[address] [place], [place] [address]Dr. Tishrowan Frazier Neutrophils/100 WBC (Bld) 83.4 % Critically high 43.0-75.0 [facility] Comment on above: Performed By: #### C BC ####[facility] Jwsvorufmm0212[address] [place], [place] [address]Dr. Chrissy Freddie Platelet mean volume (Bld) [Entitic vol] 10.4 fL Normal 9.5-13.5 [facility] Comment on above: Performed By: #### C BC ####[facility] Zsnvioqtja39[address] [place], [place] [address]Dr. Chrissy Frazier PLT 313 103/ul Normal 150-450 [facility] Comment on above: Performed By: #### C BC ####[facility] Wtqsxtjmpn3823 [place] [id number]. Chrissy Frazier RBC 4.71 106/ul Normal 4.70-6.10 [facility] Comment on above: Performed By: #### C BC ####[facility] Gsttwldces9956 [place] [id number]. Chrissy Frazier WBC 14.4 103/ul Critically high 4.0-11.0 [facility] Comment on above: Performed By: #### C BC ####[facility] Jpnyiatvxf1740 [place] [id number]. Chrissy Frazier CULTURE URINEon 01-04-2023 CULTURE URINE Culture Observations: NO GROWTH. Normal [facility] Comment on above: Performed By: #### U RCX ####[facility] Qqqmyhmsvz1765 [place] [address]Dr. Chrissy Frazier DRUG SCREEN RAPID (URINE)on 01-04-2023 AMP Negative Normal NEGATIVE [facility] Comment on above: Performed By: #### D REYES, UAMIC ####[facility] Mvxpkpsrdx0116 [place] [address]Dr. Chrissy Frazier BAR Negative Normal NEGATIVE [facility] Comment on above: Performed By: #### D REYES, UAMIC ####[facility] Bpmxtnwxaa[address] [place] [address]Dr. Chrissy Frazier BUP Negative Normal NEGATIVE [facility] Comment on above: Performed By: #### D CHAYAD, UAMIC ####[facility] Kdsywshzmc25[address] [place] [address]Dr. Chrissy Frazier BZO Positive Abnormal NEGATIVE [facility] Comment on above: Performed By: #### D REYES, UAMIC ####[facility] Laelvcrzlx64[address] [place] [address]Dr. Chrissy Frazier LAUREN Negative Normal NEGATIVE [facility] Comment on above: Performed By: #### D REYES, UAMIC ####[facility] Mmwyvjyjgg5868 [place] [address]Dr. Chrissy Frazier CUT-OFFS SEE BELOW Normal [facility] Comment on above: Result Comment: AMP [...] ng/mL Performed By: #### Amelie CHAMBERS, UAMIC ####[facility] Bkddiqyvgl5025[address] [place], [place] [address]Dr. [facility] DRUG CUT HEADER DRUG CLASS TEST SYSTEM CUT-OFF CONCENTRATIONS ARE FOLLOWS: Normal [facility] Comment on above: Performed By: #### Amelie CHAMBERS UAMIC ####[facility] Hdrppwdqeu177[address] [place], [place] [address]Dr. Chrissy [facility] mAMP Negative Normal NEGATIVE [facility] Comment on above: Performed By: #### Amelie CHAMBERS UAMIC ####[facility] Luynuevull697[address] [place], [place] [address]Dr. [facility] MTD Negative Normal NEGATIVE [facility] Comment on above: Performed By: #### Amelie CHAMBERS, UAMIC ####[facility] Pvlznzxpyz8947[address] [place], [place] [address]Dr. [facility] OPI Negative Normal NEGATIVE [facility] Comment on above: Performed By: #### Amelie CHAMBERS, UAMIC ####[facility] Nzdbpvlagz5664[address] [place], [place] [address]Dr. [facility] OXY Negative Normal NEGATIVE [facility] Comment on above: Performed By: #### Amelie CHAMBERS, UAMIC ####[facility] Fmscsezjvc6[address] [place], [place] [address]Dr. [facility] PCP Negative Normal NEGATIVE [facility] Comment on above: Performed By: #### Amelie CHAMBERS, UAMIC ####[facility] Iwyqbfrwhd219[address] [place], [place] [address]Dr. [facility] PPX Negative Normal NEGATIVE [facility] Comment on above: Performed By: #### D REYES UAMIC ####[facility] Sbozqsrjiy7[address] [place] [address]Dr. Chrissy Frazier TCA Positive Abnormal NEGATIVE [facility] Comment on above: Performed By: #### D REYES UAMIC ####[facility] Mmedxhdqdt0497 [place] [address]Dr. Chrissy Frazier THC Positive Abnormal NEGATIVE [facility] Comment on above: Performed By: #### D REYES UAMIC ####[facility] Xrmekbzcxj4614 [place] [address]Dr. Chrissy Frazier LIPASEon 01-04-2023 Lipase [Catalytic activity/Vol] 57.0 U/L Critically low 73.0-393.0 [facility] Comment on above: Performed By: #### L IPA ####[facility] Ktqkygdohu[address] [place], [place] [address]Dr. Chrissy Frazier PROF 14(COMP METB)on 023 Albumin [Mass/Vol] 3.6 g/dL Normal 3.4-5.0 [facility] Comment on above: Performed By: #### C MP ####[facility] Zvatliwcvf676[address] [place], [place] [address]Dr. Chrissy Frazier Albumin/Globulin [Mass ratio] 1.0 {ratio} Normal [facility] Comment on above: Performed By: #### C MP ####[facility] Pmtodwlhnr030[address] [place], [place] [address]Dr. Chrissy Frazier ALP [Catalytic activity/Vol] 67 U/L Normal 46-116 [facility] Comment on above: Performed By: #### C MP ####[facility] Ktplvskzja064[address] [place], [place] [address]Dr. Chrissy Frazier ALT [Catalytic activity/Vol] 26 U/L Normal 16-63 [facility] Comment on above: Performed By: #### C MP ####[facility] Qlukuaefvf3011 [place] [address]Dr. Chrissy Frazier Anion gap [Moles/Vol] 16.3 mmol/L Normal [facility] Comment on above: Performed By: #### C MP ####[facility] Wuydpqgpjv9467 [place] [id number]. Chrissy Frazier AST [Catalytic activity/Vol] 17 U/L Normal 15-37 [facility] Comment on above: Performed By: #### C MP ####[facility] Ixhabubdsm3858 [place] [id number]. Chrissy Frazier Bilirubin [Mass/Vol] 0.4 mg/dL Normal 0.2-1.0 [facility] Comment on above: Performed By: #### C MP ####[facility] Mozbbqolbj105[address] [place], [place] [address]Dr. Chrissy Frazier Calcium [Mass/Vol] 8.7 mg/dL Normal 8.5-10.1 [facility] Comment on above: Performed By: #### C MP ####[facility] Rmesaeujne75[address] [place], [place] [address]Dr. Chrissy Frazier Chloride [Moles/Vol] 106 mmol/L Normal 98-107 [facility] Comment on above: Performed By: #### C MP ####[facility] Wgmstmismq326[address] [place], [place] [address]Dr. Chrissy Frazier CO2 [Moles/Vol] 22.6 mmol/L Normal 21.0-32.0 [facility] Comment on above: Performed By: #### C MP ####[facility] Umgmkwthit0314[address] [place], [place] [address]Dr. Chrissy Frazier Creatinine [Mass/Vol] 0.99 mg/dL Normal 0.70-1.30 [facility] Comment on above: Performed By: #### C MP ####[facility] Vjuertaeby3221 [place] [id number]. Chrissy Frazier EGFR-AF IRANIAN >60 Normal >=60 [facility] Comment on above: Performed By: #### C MP ####[facility] Hsvywfcadg3430 [place] [address]Dr. Chrissy Frazier EGFR-NON AF IRANIAN >60 Normal >=60 [facility] Comment on above: Performed By: #### C MP ####[facility] Zpyxhaagkf3935 [place] [address]Dr. Chrissy Frazier Globulin (S) [Mass/Vol] 3.6 g/dL Normal [facility] Comment on above: Performed By: #### C MP ####[facility] Qwhlpxuood5500 [place] [address]Dr. Chrissy Frazier Glucose [Mass/Vol] 138 mg/dL Critically high 74-106 [facility] Comment on above: Performed By: #### C MP ####[facility] Ssolfdsiua2200 [place] [address]Dr. Chrissy Frazier Potassium [Moles/Vol] 3.9 mmol/L Normal 3.5-5.1 [facility] Comment on above: Performed By: #### C MP ####[facility] Kbojcmbclx53[address] [place], [place] [address]Dr. Chrissy Frazier Protein [Mass/Vol] 7.2 g/dL Normal 6.4-8.2 [facility] Comment on above: Performed By: #### C MP ####[facility] Agvhvtzfsd440[address] [place], [place] [address]Dr. Chrissy Frazier Sodium [Moles/Vol] 141 mmol/L Normal 136-145 [facility] Comment on above: Performed By: #### C MP ####[facility] Cmffresbnl0740[address] [place], [place] [address]Dr. Chrissy Frazier Urea nitrogen [Mass/Vol] 10.0 mg/dL Normal 7.0-18.0 [facility] Comment on above: Performed By: #### C MP ####[facility] Ebrimtvttv609[address] [place], [place] [address]Dr. Chrissy Frazier Urea nitrogen/Creatinine [Mass ratio] 10.1 mg/mg Normal [facility] Comment on above: Performed By: #### C MP ####[facility] Nqtgkoerln244[address] [place], [place] [address]Dr. Chrissy Frazier UA RANDOM W/MICROSCOPICon BACTERIA TRACE Abnormal NONE SEEN [facility] Comment on above: Performed By: #### D REYES, UAMIC ####[facility] Qteuarogvm9853 [place] [address]Dr. Chrissy Frazier Bilirubin Ql (U) Negative Normal NEGATIVE [facility] Comment on above: Performed By: #### Amelie CHAMBERS, UAMIC ####[facility] Iikmjdoljf14[address] [place], [place] [address]Dr. Chrissy Frazier CAST NONE SEEN Normal NONE SEEN [facility] Comment on above: Performed By: #### Amelie CHAMBERS, UAMIC ####[facility] Tfrhmfwjrq4027[address] [place], [place] [address]Dr. Chrissy Frazier Clarity (U) CLEAR Normal CLEAR [facility] Comment on above: Performed By: #### Amelie CHAMBERS, UAMIC ####[facility] Pwrlqnuemv6923[address] [place], [place] [address]Dr. Chrissy Frazier Color (U) YELLOW Normal YELLOW [facility] Comment on above: Performed By: #### Amelie CHAMBERS, UAMIC ####[facility] Ynafvsoibr146[address] [place], [place] [address]Dr. Chrissy Frazier Crystals LM Nom (Urine sed) NONE SEEN Normal NONE SEEN [facility] Comment on above: Performed By: #### Amelie CHAMBERS, UAMIC ####[facility] Aydgtlpkwm088[address] [place], [place] [address]Dr. Chrissy Frazier Epithelial cells LM Ql (Urine sed) NONE SEEN Normal NONE SEEN /RARE [facility] Comment on above: Performed By: #### Amelie CHAMBERS, UAMIC ####[facility] Ctijfvczjc[address] [place], [place] [address]Dr. Chrissy Frazier Glucose Ql (U) Negative Normal NEGATIVE [facility] Comment on above: Performed By: #### D REYES, UAMIC ####[facility] Gjtkedxllx239[address] [place], [place] [address]Dr. Chrissy Frazier Hemoglobin Ql (U) Negative Normal NEGATIVE [facility] Comment on above: Performed By: #### Amelie CHAMBERS, UAMIC ####[facility] Oxhqelukfs980[address] [place], [place] [address]Dr. Chrissy Frazier Ketones Ql (U) 15 mg/dl Abnormal NEGATIVE [facility] Comment on above: Performed By: #### Amelie CHAMBERS UAMIC ####[facility] Xyilklzttm0226 [place] [address]Dr. Chrissy Frazier LEUKOCYTES Negative Normal NEGATIVE [facility] Comment on above: Performed By: #### Amelie CHAMBERS UAMIC ####[facility] Pucuxkygbs5395 [place] [address]Dr. Chrissy Frazier MUCOUS NONE SEEN Normal NONE SEEN [facility] Comment on above: Performed By: #### Amelie CHAMBERS UAMIC ####[facility] Fprbixmlrw9996 [place] [address]Dr. Chrissy Frazier Nitrite Ql (U) Negative Normal NEGATIVE [facility] Comment on above: Performed By: #### Amelie CHAMBERS UAMIC ####[facility] Fvoxirfwtw6024 [place] [address]Dr. Chrissy Frazier pH (U) 6.5 [pH] Normal 5-9 [facility] Comment on above: Performed By: #### Amelie CHAMBERS UAMIC ####[facility] Cgufyvlyzv[address] [place], [place] [address]Dr. Chrissy Frazier RBC NONE SEEN Abnormal 0-2 [facility] Comment on above: Performed By: #### Amelie CHAMBERS UAMIC ####[facility] Qlmhyujjiy[address] [place], [place] [address]Dr. Chrissy Frazier SPEC GRAVITY 1.020 Normal 1.005-<=1.025 [facility] Comment on above: Performed By: #### Amelie CHAMBERS UAMIC ####[facility] Fbucjnrjuy[address] [place], [place] [address]Dr. Chrissy Frazier UA PROTEIN Negative Normal NEGATIVE/ TRACE [facility] Comment on above: Performed By: #### Amelie CHAMBERS UAMIC ####[facility] Nrpsofgxap[address] [place], [place] [address]Dr. Chrissy Frazier Urobilinogen Qn (U) 0.2 {Estrellita'U}/dL Normal 0.2 - 1. 0 [facility] Comment on above: Performed By: #### Amelie CHAMBERS UAMIC ####[facility] Gzgsrfqped8800 [place] [id number]. Chrissy Frazier WBC NONE SEEN Normal NONE SEEN [facility] Comment on above: Performed By: #### D REYES UAMIC ####[facility] Ekqfkwahul8365 [place] [id number]. Chrissy Frazier AMMONIAon 01-03-2023 Ammonia (P) [Moles/Vol] 17 umol/L Normal 11-32 [facility] Comment on above: Performed By: #### A MM ####[facility] Xhwxtlyccu3622 [place] [address]Dr. Chrissy Frazier AMYLASEon 01-03-2023 Amylase [Catalytic activity/Vol] 38 U/L Normal 25-115 [facility] Comment on above: Performed By: #### L IPA, TERRENCE, CMP, MG ####[facility] Wfyzxltfwb9987 [place] [address]Dr. Chrissy Frazier CBC AUTO DIFFon 01-03-2023 BASO # 0.1 103/ul Normal 0.0-0.1 [facility] Comment on above: Performed By: #### C BC ####[facility] Ceqclmygjg5591 [place] [address]Dr. Chrissy Frazier Basophils/100 WBC (Bld) 0.4 % Normal 0.2-2.0 [facility] Comment on above: Performed By: #### C BC ####[facility] Xumlgchyos9812 [place] [address]Dr. Chrissy Frazier EO # 0.1 103/ul Normal 0.0-0.7 [facility] Comment on above: Performed By: #### C BC ####[facility] Nuvmfohkvp2361 [place] [address]Dr. Chrissy Frazier Eosinophils/100 WBC (Bld) 0.3 % Critically low 0.9-7.0 [facility] Comment on above: Performed By: #### C BC ####[facility] Nfoopwssxx2948 [place] [address]Dr. Chrissy Frazier Erythrocyte distribution width (RBC) [Ratio] 13.7 % Normal 11.0-15.0 [facility] Comment on above: Performed By: #### C BC ####[facility] Jnuhofjdss5983 [place] [address]Dr. Tishrowan Freddie Hematocrit (Bld) [Volume fraction] 46.1 % Normal 42.0-54.0 [facility] Comment on above: Performed By: #### C BC ####[facility] Hiyggoluhy9782 [place] [address]Dr. Chrissy Frazier Hemoglobin (Bld) [Mass/Vol] 15.4 g/dL Normal 14.0-18.0 [facility] Comment on above: Performed By: #### C BC ####[facility] Sbdvopzazw417[address] [place], [place] [address]Dr. Chrissy Frazier IG # 0.11 10e3/ul Critically high 0.00-0.03 [facility] Comment on above: Performed By: #### C BC ####[facility] Rkkglwogzs687[address] [place], [place] [address]Dr. Chrissy Frazier IG % 0.6 % Critically high 0.0-0.5 [facility] Comment on above: Performed By: #### C BC ####[facility] Vqdpgtnazo411[address] [place], [place] [address]Dr. Chrissy Frazier LYMPH # 2.5 103/ul Normal 1.2-3.8 [facility] Comment on above: Performed By: #### C BC ####[facility] Bustllosth213[address] [place], [place] [address]DrNancy Frazier Lymphocytes/100 WBC (Bld) 13.9 % Critically low 20.5-60.0 [facility] Comment on above: Performed By: #### C BC ####[facility] Lrtzuxmowd[address] [place], [place] [address]DrNancy Frazier MANUAL DIFF REQ NO Normal [facility] Comment on above: Performed By: #### C BC ####[facility] Mexukwrqsw2955 [place] [address]Dr. Chrissy Frazier MCH (RBC) [Entitic mass] 28.6 pg Normal 25.9-34.0 [facility] Comment on above: Performed By: #### C BC ####[facility] Hirqopvzjs4130 [place] [address]Dr. Chrissy Frazier MCHC (RBC) [Mass/Vol] 33.4 g/dL Normal 29.9-35.2 [facility] Comment on above: Performed By: #### C BC ####[facility] Wwhrjxjzhc1276 [place] [address]Dr. Chrissy Frazier MCV (RBC) [Entitic vol] 85.7 fL Normal 80.0-94.0 [facility] Comment on above: Performed By: #### C BC ####[facility] Iomvfzimso503[address] [place], [place] [address]DrNancy Frazier MONO # 0.7 103/ul Normal 0.3-0.8 [facility] Comment on above: Performed By: #### C BC ####[facility] Mueyphggat840[address] [place], [place] [address]Dr. Chrissy Frazier Monocytes/100 WBC (Bld) 4.0 % Normal 1.7-12.0 [facility] Comment on above: Performed By: #### C BC ####[facility] Wpjxzxsrgy529[address] [place], [place] [address]DrNancy Frazier NEUT # 14.3 103/ul Critically high 1.4-6.5 [facility] Comment on above: Performed By: #### C BC ####[facility] Pzsojpojyj298[address] [place], [place] [address]Dr. Chrissy Frazier Neutrophils/100 WBC (Bld) 80.8 % Critically high 43.0-75.0 [facility] Comment on above: Performed By: #### C BC ####[facility] Lyzeszcnqx006[address] [place], [place] [address]DrNancy Frazier Platelet mean volume (Bld) [Entitic vol] 10.4 fL Normal 9.5-13.5 [facility] Comment on above: Performed By: #### C BC ####[facility] Jnkrsrdbpt[address] [place], [place] [address]Dr. Chrissy Frazier PLT 437 103/ul Normal 150-450 [facility] Comment on above: Performed By: #### C BC ####[facility] Lqmscxfkan1721 [place] [address]Dr. Chrissy Frazier RBC 5.38 106/ul Normal 4.70-6.10 [facility] Comment on above: Performed By: #### C BC ####[facility] Ldroebackb5746 [place] [address]Dr. Chrissy Frazier WBC 17.7 103/ul Critically high 4.0-11.0 [facility] Comment on above: Performed By: #### C BC ####[facility] Kvjsxcktbm7[address] [place] [address]Dr. Chrissy Frazier CULTURE BLOODon 01-03-2023 Microscopic examination of blood, culture Culture Observations: NO GROWTH AT 5 DAYS. Normal [facility] Comment on above: Performed By: #### B LDCX1 ####[facility] Cmrzhjugyg[address] [place], [place] [address]Dr. Chrissy Frazier Performed By: #### B LDCX2 ####[facility] Tmzgrudxod1474 [place] [address]Dr. Chrissy Frazier ECHOCARDIO M/2D COMPLETEon 0 01-03-2023 ECHOCARDIO M/2D COMPLETE Normal [facility] LACTATE/LACTIC ACIDon 2022 Lactate [Moles/Vol] 2.7 mmol/L Critically high 0.4-1.9 [facility] Comment on above: Performed By: #### L ACT ####[facility] Diodzcmxob0618 [place] [address]Dr. Chrissy Frazier Lactate [Moles/Vol] 6.3 mmol/L Critically high 0.4-1.9 [facility] Comment on above: Performed By: #### L ACT ####[facility] Vlfefctqni8434 [place] [address]Dr. Chrissy Frazier LIPASEon 01-03-2023 Lipase [Catalytic activity/Vol] 74.0 U/L Normal 73.0-393.0 [facility] Comment on above: Performed By: #### L IPA, TERRENCE, CMP, MG ####[facility] Dggansydse0976 [place] [address]Dr. Chrissy Frazier MAGNESIUMon 01-03-2023 Magnesium [Mass/Vol] 1.6 mg/dL Critically low 1.8-2.4 [facility] Comment on above: Performed By: #### L IPA, TERRENCE, CMP, MG ####[facility] Anlpcricmu4021 [place] [address]Dr. Chrissy Frazier PROF 14(COMP METB)on 023 Albumin [Mass/Vol] 4.3 g/dL Normal 3.4-5.0 [facility] Comment on above: Performed By: #### L IPA, TERRENCE, CMP, MG ####[facility] Wvtnmgsnyg0156 [place] [address]Dr. Chrissy Frazier Albumin/Globulin [Mass ratio] 1.1 {ratio} Normal [facility] Comment on above: Performed By: #### L IPA, TERRENCE, CMP, MG ####[facility] Ouamtbblhh2688 [place] [address]Dr. Chrissy Frazier ALP [Catalytic activity/Vol] 87 U/L Normal 46-116 [facility] Comment on above: Performed By: #### L IPA, TERRENCE, CMP, MG ####[facility] Gecnohneoi4114 [place] [address]Dr. Chrissy Frazier ALT [Catalytic activity/Vol] 32 U/L Normal 16-63 [facility] Comment on above: Performed By: #### L IPA, TERRENCE, CMP, MG ####[facility] Bxbtqsfhzv5470 [place] [address]Dr. Chrissy Frazier Anion gap [Moles/Vol] 24.0 mmol/L Normal [facility] Comment on above: Performed By: #### L IPA, TERRENCE, CMP, MG ####[facility] Aivsjtimxy5788 [place] [address]Dr. Chrissy Frazier AST [Catalytic activity/Vol] 22 U/L Normal 15-37 [facility] Comment on above: Performed By: #### L IPA, TERRENCE, CMP, MG ####[facility] Ssvbpckbhl4137 [place] [address]Dr. Chrissy Frazier Bilirubin [Mass/Vol] 0.6 mg/dL Normal 0.2-1.0 [facility] Comment on above: Performed By: #### L IPA, TERRENCE, CMP, MG ####[facility] Pzzotfnyga4897 [place] [address]Dr. Chrissy Frazier Calcium [Mass/Vol] 9.6 mg/dL Normal 8.5-10.1 [facility] Comment on above: Performed By: #### L IPA, TERRENCE, CMP, MG ####[facility] Ckcnlndqsf1764 [place] [address]Dr. Chrissy Frazier Chloride [Moles/Vol] 103 mmol/L Normal 98-107 [facility] Comment on above: Performed By: #### L IPA, TERRENCE, CMP, MG ####[facility] Eshakeieoz[address] [place], [place] [address]Dr. Chrissy Frazier CO2 [Moles/Vol] 16.7 mmol/L Critically low 21.0-32.0 [facility] Comment on above: Performed By: #### L IPA, TERRENCE, CMP, MG ####[facility] Gdyzadrvwi[address] [place], [place] [address]Dr. Chrissy Frazier Creatinine [Mass/Vol] 1.42 mg/dL Critically high 0.70-1.30 [facility] Comment on above: Performed By: #### L IPA, TERRENCE, CMP, MG ####[facility] Cybyhnonmv1838 [place] [address]Dr. Chrissy Frazier EGFR-AF IRANIAN >60 Normal >=60 [facility] Comment on above: Performed By: #### L IPA, TERRENCE, CMP, MG ####[facility] Rgjcmkcaau[address] [place], [place] [address]Dr. Chrissy Frazier EGFR-NON AF IRANIAN 58 mL/min/1.73m2 Critically low >=60 [facility] Comment on above: Performed By: #### L IPA, TERRENCE, CMP, MG ####[facility] Ofclupjasb1559 [place] [address]Dr. Chrissy Frazier Globulin (S) [Mass/Vol] 4.0 g/dL Normal [facility] Comment on above: Performed By: #### L IPA, TERRENCE, CMP, MG ####[facility] Yjozafdako7021 [place] [address]Dr. Chrissy Frazier Glucose [Mass/Vol] 149 mg/dL Critically high 74-106 [facility] Comment on above: Performed By: #### L IPA, TERRENCE, CMP, MG ####[facility] Uonidwhlpf9025 [place] [address]Dr. Chrissy Frazier Potassium [Moles/Vol] 3.7 mmol/L Normal 3.5-5.1 [facility] Comment on above: Performed By: #### L IPA, TERRENCE, CMP, MG ####[facility] Oulstdbulj3493 [place] [address]Dr. Chrissy Frazier Protein [Mass/Vol] 8.3 g/dL Critically high 6.4-8.2 [facility] Comment on above: Performed By: #### L IPA, TERRENCE, CMP, MG ####[facility] Xyimgmkzqo9606 [place] [address]Dr. Chrissy Frazier Sodium [Moles/Vol] 140 mmol/L Normal 136-145 [facility] Comment on above: Performed By: #### L IPA, TERRENCE, CMP, MG ####[facility] Gqonihixsk8648 [place] [address]Dr. Chrissy Frazier Urea nitrogen [Mass/Vol] 16.0 mg/dL Normal 7.0-18.0 [facility] Comment on above: Performed By: #### L IPA, TERRENCE, CMP, MG ####[facility] Sgcuowukrw1700 [place] [address]Dr. Chrissy Frazier Urea nitrogen/Creatinine [Mass ratio] 11.3 mg/mg Normal [facility] Comment on above: Performed By: #### L IPA, TERRENCE, CMP, MG ####[facility] Puocyasthi5039 [place] [address]Dr. Chrissy Frazier SED RATE [facility] 2022 SED RATE 37 mm/hr Critically high <=15 [facility] Comment on above: Performed By: #### S EDR ####[facility] Lmtwqjvjzu2439 [place], [place] [address]Qk. Chrissy Frazier XR ABD FLAT UP_PA Enoch 01-03 XR ABD FLAT UP_PA CH Normal [facility] CT HEART CORONARY ANGIOGRAMo n 12-13-2022 [...] CT examination Electronically signed: Maikel Chappell. Normal [facility] Office Visiton 11-24-2022 Follow-up visit [id number] Paulina Montero 1990 M Date Provider Department Center 11/24/2022 3848-RAQUEL BANKS MANE [facility] Family History Problem Relation Age of Onset Coronary artery disease Father Heart attack Father 54 Family Status - Relation Status Age at Father Level of Service:64369 PA OFFICE/OUTPATIENT NEW MODERATE MDM 45-59 MINUTES Reason for Visit and Comments: abnormal stress test [Other] Normal [facility] CARDIAC STRESS TESTon 2021 CARDIAC STRESS TEST Normal [facility] AMYLASEon 10-24-2022 Amylase [Catalytic activity/Vol] 26 U/L Normal 25-115 [facility] Comment on above: Performed By: #### C MP, LIPA, TERRENCE ####[facility] Euagrgwwfq6876 [place], [place] [address]YdNancy Chrissy Frazier CBC AUTO DIFFon 10-24-2022 BASO # 0.0 103/ul Normal 0.0-0.1 [facility] Comment on above: Performed By: #### C BC ####[facility] Opmizmhtvq8197 [place] [id number]. Chrissy Frazier Basophils/100 WBC (Bld) 0.2 % Normal 0.2-2.0 [facility] Comment on above: Performed By: #### C BC ####[facility] Jzjvmxqfkt1292 [place] [id number]. Chrissy Frazier EO # 0.1 103/ul Normal 0.0-0.7 [facility] Comment on above: Performed By: #### C BC ####[facility] Srviswszxg[address] [place], [place] [address]Dr. Chrissy Frazier Eosinophils/100 WBC (Bld) 0.4 % Critically low 0.9-7.0 [facility] Comment on above: Performed By: #### C BC ####[facility] Haguhjtkin[address] [place], [place] [address]Dr. Chrissy Frazier Erythrocyte distribution width (RBC) [Ratio] 14.6 % Normal 11.0-15.0 [facility] Comment on above: Performed By: #### C BC ####[facility] Qlutsdjqll1446 [place] [address]Dr. Chrissy Frazier Hematocrit (Bld) [Volume fraction] 39.4 % Critically low 42.0-54.0 [facility] Comment on above: Performed By: #### C BC ####[facility] Saglcixhcf3921 [place] [id number]. Chrissy Frazier Hemoglobin (Bld) [Mass/Vol] 13.2 g/dL Critically low 14.0-18.0 [facility] Comment on above: Performed By: #### C BC ####[facility] Sphoxbrmvp6403 [place] [address]Dr. Chrissy Frazier IG # 0.07 10e3/ul Critically high 0.00-0.03 [facility] Comment on above: Performed By: #### C BC ####[facility] Lhfokyklrj[address] [place], [place] [address]Dr. Chrissy Frazier IG % 0.5 % Normal 0.0-0.5 [facility] Comment on above: Performed By: #### C BC ####[facility] Zdkdwrfqfi2844 [place] [id number]. Chrissy Frazier LYMPH # 3.7 103/ul Normal 1.2-3.8 [facility] Comment on above: Performed By: #### C BC ####[facility] Sfndvrtcro1064 [place], [place] [address]No. Chrissy Freddie Lymphocytes/100 WBC (Bld) 27.0 % Normal 20.5-60.0 [facility] Comment on above: Performed By: #### C BC ####[facility] Qmjaendyun5638 [place] [id number]. Tishrowan Frazier MANUAL DIFF REQ NO Normal [facility] Comment on above: Performed By: #### C BC ####[facility] Zasxpvgvpb8779 [place] [address]Dr. Chrissy Freddie MCH (RBC) [Entitic mass] 27.8 pg Normal 25.9-34.0 [facility] Comment on above: Performed By: #### C BC ####[facility] Gekmoalrby4193 [place] [address]Dr. Chrissy Frazier MCHC (RBC) [Mass/Vol] 33.5 g/dL Normal 29.9-35.2 [facility] Comment on above: Performed By: #### C BC ####[facility] Nmxespskkh9359 [place] [address]Dr. Chrissy Frazier MCV (RBC) [Entitic vol] 82.9 fL Normal 80.0-94.0 [facility] Comment on above: Performed By: #### C BC ####[facility] Tvqxlczmgq5852 [place] [address]Dr. Chrissy Freddie MONO # 1.2 103/ul Critically high 0.3-0.8 [facility] Comment on above: Performed By: #### C BC ####[facility] Azxhwmgklo6332 [place] [address]Dr. Tishrowan Frazier Monocytes/100 WBC (Bld) 8.4 % Normal 1.7-12.0 [facility] Comment on above: Performed By: #### C BC ####[facility] Tjhzpavffz0549 [place] [address]Dr. Chrissy Frazier NEUT # 8.8 103/ul Critically high 1.4-6.5 [facility] Comment on above: Performed By: #### C BC ####[facility] Rywlqgrudu3770 [place] [address]Dr. Chrissy Frazier Neutrophils/100 WBC (Bld) 63.5 % Normal 43.0-75.0 [facility] Comment on above: Performed By: #### C BC ####[facility] Aypglpqwyq2784 [place] [address]Dr. Tishrowan Frazier Platelet mean volume (Bld) [Entitic vol] 10.7 fL Normal 9.5-13.5 [facility] Comment on above: Performed By: #### C BC ####[facility] Fnsprlavio2247 [place] [address]Dr. Chrissy Frazier PLT 291 103/ul Normal 150-450 [facility] Comment on above: Performed By: #### C BC ####[facility] Xpyhweeahm82[address] [place], [place] [address]Dr. Chrissy Frazier RBC 4.75 106/ul Normal 4.70-6.10 [facility] Comment on above: Performed By: #### C BC ####[facility] Cstxglfslx5115 [place] [address]Dr. Chrissy Frazier WBC 13.8 103/ul Critically high 4.0-11.0 [facility] Comment on above: Performed By: #### C BC ####[facility] Okxeewzbzx38[address] [place], [place] [address]Dr. Chrissy Frazier LIPASEon 10-24-2022 Lipase [Catalytic activity/Vol] 44.0 U/L Critically low 73.0-393.0 [facility] Comment on above: Performed By: #### C MP, LIPA, TERRENCE ####[facility] Kyzfwvhaza4428 [place] [address]Dr. Chrissy Frazier PROF 14(COMP METB)on 022 Albumin [Mass/Vol] 3.4 g/dL Normal 3.4-5.0 [facility] Comment on above: Performed By: #### C OSWALD ADAIR, TERRENCE ####[facility] Wyiokounma0787 [place] [address]Dr. Chrissy Frazier Albumin/Globulin [Mass ratio] 0.9 {ratio} Normal [facility] Comment on above: Performed By: #### C TESSA ADAIRA, TERRENCE ####[facility] Chsurjaerr99[address] [place], [place] [address]Dr. Tishrowan Frazier ALP [Catalytic activity/Vol] 67 U/L Normal 46-116 [facility] Comment on above: Performed By: #### C OSWALD ADAIR, TERRENCE ####[facility] Sfnetbvdgq[address] [place], [place] [address]Dr. Chrissy Frazier ALT [Catalytic activity/Vol] 25 U/L Normal 16-63 [facility] Comment on above: Performed By: #### C OSWALD ADAIR, ETRRENCE ####[facility] Zfxcgmsrqp57[address] [place], [place] [address]Dr. Chrissy Frazier Anion gap [Moles/Vol] 14.5 mmol/L Normal [facility] Comment on above: Performed By: #### C OSWALD ADAIR, TERRENCE ####[facility] Ssmastywtq53[address] [place], [place] [address]Dr. Chrissy Frazier AST [Catalytic activity/Vol] 17 U/L Normal 15-37 [facility] Comment on above: Performed By: #### C OSWALD ADAIR, TERRENCE ####[facility] Nbhttplncp[address] [place], [place] [address]Dr. Chrissy Frazier Bilirubin [Mass/Vol] 0.5 mg/dL Normal 0.2-1.0 [facility] Comment on above: Performed By: #### C OSWALD ADAIR, TERRENCE ####[facility] Ipggmdqerp149[address] [place], [place] [address]Dr. Chrissy Frazier Calcium [Mass/Vol] 8.6 mg/dL Normal 8.5-10.1 [facility] Comment on above: Performed By: #### C TESSA ADAIRA, TERRENCE ####[facility] Ppnnwyxrjn7972 [place] [address]Dr. Chrissy Frazier Chloride [Moles/Vol] 106 mmol/L Normal 98-107 [facility] Comment on above: Performed By: #### C OSWALD ADAIR, TERRENCE ####[facility] Ktwadhdfrl4659 [place] [address]Dr. Chrissy Frazier CO2 [Moles/Vol] 22.8 mmol/L Normal 21.0-32.0 [facility] Comment on above: Performed By: #### C OSWALD ADAIR, TERRENCE ####[facility] Gmzqvwinqs6512 [place] [address]Dr. Chrissy Frazier Creatinine [Mass/Vol] 0.98 mg/dL Normal 0.70-1.30 [facility] Comment on above: Performed By: #### C OSWALD ADAIR, TERRENCE ####[facility] Scblizjeow[address] [place], [place] [address]Dr. Chrissy Frazier EGFR-AF IRANIAN >60 Normal >=60 [facility] Comment on above: Performed By: #### C OSWALD ADAIR, TERRENCE ####[facility] Frnaktcybi6[address] [place], [place] [address]Dr. Chrissy Frazier EGFR-NON AF IRANIAN >60 Normal >=60 [facility] Comment on above: Performed By: #### C OSWALD ADAIR, TERRENCE ####[facility] Hwhijktamu9464 [place] [address]Dr. Chrissy Frazier Globulin (S) [Mass/Vol] 3.7 g/dL Normal [facility] Comment on above: Performed By: #### C OSWALD ADAIR, TERRENCE ####[facility] Oebetpxmgq5442 [place] [address]Dr. Chrissy Frazier Glucose [Mass/Vol] 115 mg/dL Critically high 74-106 [facility] Comment on above: Performed By: #### C OSWALD ADAIR, TERRENCE ####[facility] Zgrsfdwewe64[address] [place], [place] [address]Dr. Chrissy Frazier Potassium [Moles/Vol] 3.3 mmol/L Critically low 3.5-5.1 [facility] Comment on above: Performed By: #### C MP, LIPA, TERRENCE ####[facility] Bkwznyezos[address] [place], [place] [address]Dr. Chrissy Frazier Protein [Mass/Vol] 7.1 g/dL Normal 6.4-8.2 [facility] Comment on above: Performed By: #### C MP, LIPA, TERRENCE ####[facility] Sfjgenkpvz[address] [place], [place] [address]Dr. Chrissy Frazier Sodium [Moles/Vol] 140 mmol/L Normal 136-145 [facility] Comment on above: Performed By: #### C MP, LIPA, TERRENCE ####[facility] Grxwqmdgtf1267[address] [place], [place] [address]Dr. Chrissy Frazier Urea nitrogen [Mass/Vol] 10.0 mg/dL Normal 7.0-18.0 [facility] Comment on above: Performed By: #### C MP, LIPA, TERRENCE ####[facility] Jhirackenu88[address] [place], [place] [address]Dr. Chrissy Frazier Urea nitrogen/Creatinine [Mass ratio] 10.2 mg/mg Normal [facility] Comment on above: Performed By: #### C MP, LIPA, TERRENCE ####[facility] Tiqeajqizx[address] [place], [place] [address]Dr. Chrissy Frazier AMYLASEon 10-23-2022 Amylase [Catalytic activity/Vol] 31 U/L Normal 25-115 [facility] Comment on above: Performed By: #### C MP, LIPA, TERRENCE ####[facility] Nsghsudhrx22[address] [place], [place] [address]Dr. Chrissy Frazier CBC AUTO DIFFon 10-23-2022 BASO # 0.1 103/ul Normal 0.0-0.1 [facility] Comment on above: Performed By: #### C BC ####[facility] Yggwyptuag257[address] [place], [place] [address]Dr. Chrissy Frazier Basophils/100 WBC (Bld) 0.3 % Normal 0.2-2.0 [facility] Comment on above: Performed By: #### C BC ####[facility] Zrdywvgtgh9095 [place] [address]Dr. Chrissy Frazier EO # 0.1 103/ul Normal 0.0-0.7 [facility] Comment on above: Performed By: #### C BC ####[facility] Qaxpmbpgae8911 [place] [address]Dr. Chrissy Frazier Eosinophils/100 WBC (Bld) 0.3 % Critically low 0.9-7.0 [facility] Comment on above: Performed By: #### C BC ####[facility] Djlwevyhhi70[address] [place], [place] [address]Dr. Chrissy Frazier Erythrocyte distribution width (RBC) [Ratio] 14.5 % Normal 11.0-15.0 [facility] Comment on above: Performed By: #### C BC ####[facility] Qprkzsanbn495[address] [place], [place] [address]Dr. Chrissy Frazier Hematocrit (Bld) [Volume fraction] 44.0 % Normal 42.0-54.0 [facility] Comment on above: Performed By: #### C BC ####[facility] Eimkzdpsfs[address] [place], [place] [address]Dr. Chrissy Frazier Hemoglobin (Bld) [Mass/Vol] 14.8 g/dL Normal 14.0-18.0 [facility] Comment on above: Performed By: #### C BC ####[facility] Ufqkdwiuns3832 [place] [address]Dr. Chrissy Frazier IG # 0.09 10e3/ul Critically high 0.00-0.03 [facility] Comment on above: Performed By: #### C BC ####[facility] Rlxhygcjxn1485 [place] [address]Dr. Chrissy Frazier IG % 0.5 % Normal 0.0-0.5 [facility] Comment on above: Performed By: #### C BC ####[facility] Brzulmqjxz30[address] [place], [place] [address]Dr. Chrissy Frazier LYMPH # 3.6 103/ul Normal 1.2-3.8 [facility] Comment on above: Performed By: #### C BC ####[facility] Zzpiannzja1229 [place] [address]Dr. Chrissy Freddie Lymphocytes/100 WBC (Bld) 19.4 % Critically low 20.5-60.0 [facility] Comment on above: Performed By: #### C BC ####[facility] Onofxwljpj0428 [place] [address]Dr. Tishrowan Frazier MANUAL DIFF REQ NO Normal [facility] Comment on above: Performed By: #### C BC ####[facility] Aqjvzqhrad4505 [place] [address]Dr. Chrissy Freddie MCH (RBC) [Entitic mass] 28.1 pg Normal 25.9-34.0 [facility] Comment on above: Performed By: #### C BC ####[facility] Pzmrxbvqpj0262 [place] [address]Dr. Chrissy Freddie MCHC (RBC) [Mass/Vol] 33.6 g/dL Normal 29.9-35.2 [facility] Comment on above: Performed By: #### C BC ####[facility] Vmrfpioszz0299 [place] [address]Dr. Chrissy Freddie MCV (RBC) [Entitic vol] 83.5 fL Normal 80.0-94.0 [facility] Comment on above: Performed By: #### C BC ####[facility] Vriahicenu7759 [place] [address]Dr. Chrissy Frazier MONO # 0.9 103/ul Critically high 0.3-0.8 [facility] Comment on above: Performed By: #### C BC ####[facility] Snvruiyffd3603 [place] [address]Dr. Tishrowan Frazier Monocytes/100 WBC (Bld) 4.9 % Normal 1.7-12.0 [facility] Comment on above: Performed By: #### C BC ####[facility] Urvxwqnpfr0796 [place] [address]Dr. Chrissy Frazier NEUT # 13.9 103/ul Critically high 1.4-6.5 [facility] Comment on above: Performed By: #### C BC ####[facility] Aikkhnqamn0806 [place] [address]Dr. Chrissy Frazier Neutrophils/100 WBC (Bld) 74.6 % Normal 43.0-75.0 [facility] Comment on above: Performed By: #### C BC ####[facility] Chhuwlmwdj5372 [place] [address]Dr. Chrissy Frazier Platelet mean volume (Bld) [Entitic vol] 10.5 fL Normal 9.5-13.5 [facility] Comment on above: Performed By: #### C BC ####[facility] Sfmcvxteju6257 [place] [address]Dr. Chrissy Frazier PLT 402 103/ul Normal 150-450 [facility] Comment on above: Performed By: #### C BC ####[facility] Ncirjhjhzr5174 [place] [address]Dr. Chrissy Frazier RBC 5.27 106/ul Normal 4.70-6.10 [facility] Comment on above: Performed By: #### C BC ####[facility] Whojnzihdo4692 [place] [address]Dr. Chrissy Frazier WBC 18.6 103/ul Critically high 4.0-11.0 [facility] Comment on above: Performed By: #### C BC ####[facility] Cpqlsgkfvb0290 [place] [address]Dr. Chrissy Frazier CULTURE BLOODon 10-23-2022 Microscopic examination of blood, culture Culture Observations: NO GROWTH AT 5 DAYS. Normal [facility] Comment on above: Performed By: #### B LDCX2 ####[facility] Rawxxkudkk5695 [place] [address]Dr. Chrissy Frazier Microscopic examination of blood, culture Culture Observations: NO GROWTH AT 5 DAYS. Normal [facility] Comment on above: Performed By: #### B LDCX1 ####[facility] Bayuqecotg2033 [place] [address]Dr. Chrissy Frazier CULTURE URINEon 10-23-2022 CULTURE URINE Culture Observations: NO GROWTH. Normal [facility] Comment on above: Performed By: #### U RCX ####[facility] Vxnfnzpkdy9500 [place] [address]Dr. Chrissy Frazier Covid-19 PCR (CVDTB)on SARS-CoV-2 (COVID-19) RNA RHIANNON+probe Ql (Unsp spec) Not detected Normal NOT DETECTED [facility] Comment on above: Result Comment: When [...] for this test is supported by the [place] of [employer] and Human Service's declaration that [...] be used). Performed By: #### C VDTBH ####[facility] Bfwmjjbkww[address] [place], [place] [address]Dr. Chrissy Frazier INFLUENZA A AND B AGon 10-23 INFLUANEGH SEE BELOW Normal [facility] Comment on above: Result Comment: Nega tive for Flu A protein angiten. Infection due to Flu A cannot be ruled out. Flu A angiten in the sample may be below the detection limit of the test. Performed By: #### I NFLUAB ####[facility] Rqlxwhqjtk[address] [place], [place] [address]Dr. Chrissy Frazier INFLUBNEGH SEE BELOW Normal [facility] Comment on above: Result Comment: Nega tive for Flu B protein antigen. Infection due to Flu B cannot be ruled out. Flu B antigen in the sample may be below the detection limit of the test. Performed By: #### I NFLUAB ####[facility] Cpfotwguut[address] [place], [place] [address]Dr. Chrissy Frazier INFLUENZA A AG Negative Normal NEGATIVE SEE COMMENT [facility] Comment on above: Performed By: #### I NFLUAB ####[facility] Mirloztpsr8010 [place] [address]Dr. Chrissy Frazier INFLUENZA B AG Negative Normal NEGATIVE SEE COMMENT [facility] Comment on above: Performed By: #### I NFLUAB ####[facility] Wborstkanm[address] [place], [place] [address]Dr. Chrissy Frazier INTERNAL CONTROLS Within Normal Limits Normal Wi thin Normal Limits [facility] Comment on above: Performed By: #### I NFLUAB ####[facility] Nxgbmffjic[address] [place], [place] [address]Dr. Chrissy Frazier LACTATE/LACTIC ACIDon 2021 Lactate [Moles/Vol] 2.1 mmol/L Critically high 0.4-1.9 [facility] Comment on above: Performed By: #### L ACT ####[facility] Buqsnfdgzk230[address] [place], [place] [address]Dr. Chrissy Frazier Lactate [Moles/Vol] 6.9 mmol/L Critically high 0.4-1.9 [facility] Comment on above: Performed By: #### L ACT ####[facility] Txmcvapgar29[address] [place], [place] [address]Dr. Chrissy Freddie LIPASEon 10-23-2022 Lipase [Catalytic activity/Vol] 72.0 U/L Critically low 73.0-393.0 [facility] Comment on above: Performed By: #### C OSWALD ADAIR AMY ####[facility] Byokbzqisl8[address] [place], [place] [address]Dr. Chrissy Frazier PROF 14(COMP METB)on 022 Albumin [Mass/Vol] 3.9 g/dL Normal 3.4-5.0 [facility] Comment on above: Performed By: #### C OSWALD ADAIR AMY ####[facility] Hkwthzzcpt95[address] [place], [place] [address]Dr. Chrissy Freddie Albumin/Globulin [Mass ratio] 0.9 {ratio} Normal [facility] Comment on above: Performed By: #### C MP, LIPA, TERRENCE ####[facility] Tdmvbxoqcl[address] [place] [address]Dr. Chrissy rFazier ALP [Catalytic activity/Vol] 82 U/L Normal 46-116 [facility] Comment on above: Performed By: #### C MP, LIPA, TERRENCE ####[facility] Ckexifflfh60[address] [place] [address]Dr. Chrissy Frazier ALT [Catalytic activity/Vol] 25 U/L Normal 16-63 [facility] Comment on above: Performed By: #### C MP, LIPA, TERRENCE ####[facility] Gfotmwopzi53[address] [place], [place] [address]Dr. Chrissy Frazier Anion gap [Moles/Vol] 18.1 mmol/L Normal [facility] Comment on above: Performed By: #### C MP, LIPA, TERRENCE ####[facility] Diwewtrelr8567[address] [place], [place] [address]Dr. Chrissy Frazier AST [Catalytic activity/Vol] 17 U/L Normal 15-37 [facility] Comment on above: Performed By: #### C MP, LIPA, TERRENCE ####[facility] Umlyehjohv545[address] [place], [place] [address]Dr. Chrissy Frazier Bilirubin [Mass/Vol] 0.5 mg/dL Normal 0.2-1.0 [facility] Comment on above: Performed By: #### C MP, LIPA, TERRENCE ####[facility] Xowgyanibu3550[address] [place], [place] [address]Dr. Chrissy Frazier Calcium [Mass/Vol] 9.1 mg/dL Normal 8.5-10.1 [facility] Comment on above: Performed By: #### C MP, LIPA, TERRENCE ####[facility] Cgfwazasjw[address] [place], [place] [address]Dr. Chrissy Frazier Chloride [Moles/Vol] 101 mmol/L Normal 98-107 [facility] Comment on above: Performed By: #### C MP, LIPA, TERRENCE ####[facility] Umczshpeob3368[address] [place], [place] [address]Dr. Chrissy Frazier CO2 [Moles/Vol] 19.2 mmol/L Critically low 21.0-32.0 [facility] Comment on above: Performed By: #### C OSWALD ADAIR TERRENCE ####[facility] Utnuzzkzia[address] [place] [address]Dr. Chrissy Frazier Creatinine [Mass/Vol] 1.72 mg/dL Critically high 0.70-1.30 [facility] Comment on above: Performed By: #### C OSWALD ADAIR, TERRENCE ####[facility] Edepnbdvvt67[address] [place] [address]Dr. Chrissy Frazier EGFR-AF IRANIAN 56 mL/min/1.73m2 Critically low >=60 [facility] Comment on above: Performed By: #### C OSWALD ADAIR, TERRENCE ####[facility] Xjmulcdxjc7935 [place] [address]Dr. Chrissy Frazier EGFR-NON AF IRANIAN 46 mL/min/1.73m2 Critically low >=60 [facility] Comment on above: Performed By: #### C OSWALD ADAIR, TERRENCE ####[facility] Khwcxjjfer9070[address] [place], [place] [address]Dr. Chrissy Frazier Globulin (S) [Mass/Vol] 4.2 g/dL Normal [facility] Comment on above: Performed By: #### C OSWALD ADAIR, TERRENCE ####[facility] Ebouknndmp99[address] [place] [address]Dr. Chrissy Frazier Glucose [Mass/Vol] 126 mg/dL Critically high 74-106 [facility] Comment on above: Performed By: #### C OSWALD ADAIR, TERRENCE ####[facility] Gktgfzbdji7841 [place] [address]Dr. Chrissy Frazier Potassium [Moles/Vol] 3.3 mmol/L Critically low 3.5-5.1 [facility] Comment on above: Performed By: #### C TESSA ADAIRA, TERRENCE ####[facility] Vyhwplthpi8[address] [place] [address]Dr. Chrissy Frazier Protein [Mass/Vol] 8.1 g/dL Normal 6.4-8.2 [facility] Comment on above: Performed By: #### C OSWALD ADAIR, TERRENCE ####[facility] Lfbjlmchuz8[address] [place] [address]Dr. Chrissy Frazier Sodium [Moles/Vol] 135 mmol/L Critically low 136-145 [facility] Comment on above: Performed By: #### C TESSA ADAIRA, TERRENCE ####[facility] Dwrfwtokrl0047 [place] [address]Dr. Chrissy Frazier Urea nitrogen [Mass/Vol] 13.0 mg/dL Normal 7.0-18.0 [facility] Comment on above: Performed By: #### C OSWALD ADAIR, TERRENCE ####[facility] Vvjzmmqryk8[address] [place], [place] [address]Dr. Chrissy Frazier Urea nitrogen/Creatinine [Mass ratio] 7.6 mg/mg Normal [facility] Comment on above: Performed By: #### C OSWALD ADAIR, TERRENCE ####[facility] Jhsnahaonu946[address] [place], [place] [address]Dr. Chrissy Frazier UA RANDOM W/MICROSCOPICon BACTERIA NONE SEEN Normal NONE SEEN [facility] Comment on above: Performed By: #### U AMIC ####[facility] Rtzcpltrbr[address] [place], [place] [address]Dr. Chrissy Frazier Bilirubin Ql (U) Negative Normal NEGATIVE [facility] Comment on above: Performed By: #### U AMIC ####[facility] Juxzofeegp168[address] [place], [place] [address]Dr. Chrissy Frazier CAST NONE SEEN Normal NONE SEEN [facility] Comment on above: Performed By: #### U AMIC ####[facility] Yikjcmvbsy608[address] [place], [place] [address]Dr. Chrissy Frazier Clarity (U) CLEAR Normal CLEAR [facility] Comment on above: Performed By: #### U AMIC ####[facility] Pouvubuqpq[address] [place] [address]Dr. Chrissy Frazier Color (U) LT. YELLOW Normal YELLOW [facility] Comment on above: Performed By: #### U AMIC ####[facility] Dumrtbnecr30[address] [place] [address]Dr. Chrissy Frazier Crystals LM Nom (Urine sed) NONE SEEN Normal NONE SEEN [facility] Comment on above: Performed By: #### U AMIC ####[facility] Yelfspxkrn494[address] [place], [place] [address]Dr. Chrissy Frazier Epithelial cells LM Ql (Urine sed) FEW Abnormal NONE SEEN /RARE [facility] Comment on above: Performed By: #### U AMIC ####[facility] Nppfmupwtu255[address] [place], [place] [address]Dr. Chrissy Frazier Glucose Ql (U) Negative Normal NEGATIVE [facility] Comment on above: Performed By: #### U AMIC ####[facility] Fmremzrctv4513[address] [place], [place] [address]Dr. Chrissy Frazier Hemoglobin Ql (U) Negative Normal NEGATIVE [facility] Comment on above: Performed By: #### U AMIC ####[facility] Wqonymhest769792 [address] [place], [place] [address]Dr. Chrissy Frazier Ketones Ql (U) 15 mg/dl Abnormal NEGATIVE [facility] Comment on above: Performed By: #### U AMIC ####[facility] Nakrpwifiu416[address] [place], [place] [address]Dr. Chrissy Frazier LEUKOCYTES Negative Normal NEGATIVE [facility] Comment on above: Performed By: #### U AMIC ####[facility] Bntjijpita188[address] [place], [place] [address]Dr. Chrissy Frazier MUCOUS NONE SEEN Normal NONE SEEN [facility] Comment on above: Performed By: #### U AMIC ####[facility] Hrkuchvtqy8790[address] [place], [place] [address]Dr. Chrissy Frazier Nitrite Ql (U) Negative Normal NEGATIVE [facility] Comment on above: Performed By: #### U AMIC ####[facility] Wqdzbjxiqh386[address] [place], [place] [address]Dr. Chrissy Frazier pH (U) 6.0 [pH] Normal 5-9 [facility] Comment on above: Performed By: #### U AMIC ####[facility] Zwpekbvamj964[address] [place], [place] [address]Dr. Chrissy Frazier RBC 0-2 Normal 0-2 [facility] Comment on above: Performed By: #### U AMIC ####[facility] Snitiildtu[address] [place] [address]Dr. Chrissy Frazier SPEC GRAVITY 1.010 Normal 1.005-<=1.025 [facility] Comment on above: Performed By: #### U AMIC ####[facility] Sqdlgfmuar4878 [place] [address]Dr. Chrissy Freddie UA PROTEIN Negative Normal NEGATIVE/ TRACE [facility] Comment on above: Performed By: #### U AMIC ####[facility] Dqbzjtgwfc0713 [place] [address]Dr. Chrissy Freddie Urobilinogen Qn (U) 0.2 {Estrellita'U}/dL Normal 0.2 - 1. 0 [facility] Comment on above: Performed By: #### U AMIC ####[facility] Qxqaqmcrsa8880[address] [place], [place] [address]Dr. Chrissy Freddie WBC NONE SEEN Normal NONE SEEN [facility] Comment on above: Performed By: #### U AMIC ####[facility] Xdeluzqnqc8924[address] [place], [place] [address]Dr. Chrissy Freddie AMYLASEon 10-22-2022 Amylase [Catalytic activity/Vol] 28 U/L Normal 25-115 [facility] Comment on above: Performed By: #### L IPA, CMP, TERRENCE ####[facility] Wpruqguvuj2975[address] [place], [place] [address]Dr. Chrissy Freddie CBC AUTO DIFFon 10-22-2022 BASO # 0.0 103/ul Normal 0.0-0.1 [facility] Comment on above: Performed By: #### C BC ####[facility] Dunqcgoigz1623[address] [place], [place] [address]Dr. Tishrowan Frazier Basophils/100 WBC (Bld) 0.2 % Normal 0.2-2.0 [facility] Comment on above: Performed By: #### C BC ####[facility] Jumvioekgs7399[address] [place], [place] [address]Dr. Chrissy Frazier EO # 0.0 103/ul Normal 0.0-0.7 [facility] Comment on above: Performed By: #### C BC ####[facility] Xkiqmkwqud0543 [place] [address]Dr. Chrissy Frazier Eosinophils/100 WBC (Bld) 0.1 % Critically low 0.9-7.0 [facility] Comment on above: Performed By: #### C BC ####[facility] Pjpkqtejtz9240 [place] [address]Dr. Chrissy Frazier Erythrocyte distribution width (RBC) [Ratio] 14.4 % Normal 11.0-15.0 [facility] Comment on above: Performed By: #### C BC ####[facility] Scxbgqiuqq0733[address] [place], [place] [address]Dr. Chrissy Frazier Hematocrit (Bld) [Volume fraction] 45.2 % Normal 42.0-54.0 [facility] Comment on above: Performed By: #### C BC ####[facility] Xipvnwbapo7575[address] [place], [place] [address]Dr. Chrissy Frazier Hemoglobin (Bld) [Mass/Vol] 15.4 g/dL Normal 14.0-18.0 [facility] Comment on above: Performed By: #### C BC ####[facility] Gamqzefvxc509[address] [place], [place] [address]Dr. Chrissy Frazier IG # 0.07 10e3/ul Critically high 0.00-0.03 [facility] Comment on above: Performed By: #### C BC ####[facility] Fqtgaystnv8[address] [place] [address]Dr. Chrissy Frazier IG % 0.4 % Normal 0.0-0.5 [facility] Comment on above: Performed By: #### C BC ####[facility] Vwordbctxs420[address] [place], [place] [address]Dr. Chrissy Frazier LYMPH # 2.0 103/ul Normal 1.2-3.8 [facility] Comment on above: Performed By: #### C BC ####[facility] Kucllittqq2480[address] [place], [place] [address]Dr. Chrissy Frazier Lymphocytes/100 WBC (Bld) 12.2 % Critically low 20.5-60.0 [facility] Comment on above: Performed By: #### C BC ####[facility] Lnpfpzossv4663 [place] [address]DrNancy Frazier MANUAL DIFF REQ NO Normal [facility] Comment on above: Performed By: #### C BC ####[facility] Otlixawitn6920 [place] [address]Dr. Chrissy Frazier MCH (RBC) [Entitic mass] 28.3 pg Normal 25.9-34.0 [facility] Comment on above: Performed By: #### C BC ####[facility] Nrrjxsojwu820[address] [place], [place] [address]Dr. Chrissy Frazier MCHC (RBC) [Mass/Vol] 34.1 g/dL Normal 29.9-35.2 [facility] Comment on above: Performed By: #### C BC ####[facility] Sfxqksiimy0765[address] [place], [place] [address]Dr. Chrissy Frazier MCV (RBC) [Entitic vol] 82.9 fL Normal 80.0-94.0 [facility] Comment on above: Performed By: #### C BC ####[facility] Evuckyawdj2222[address] [place], [place] [address]Dr. Chrissy Frazier MONO # 0.3 103/ul Normal 0.3-0.8 [facility] Comment on above: Performed By: #### C BC ####[facility] Tifmttphgq8216[address] [place], [place] [address]Dr. Chrissy Frazier Monocytes/100 WBC (Bld) 2.0 % Normal 1.7-12.0 [facility] Comment on above: Performed By: #### C BC ####[facility] Wmqfiknxcd926[address] [place], [place] [address]DrNancy Frazier NEUT # 14.0 103/ul Critically high 1.4-6.5 [facility] Comment on above: Performed By: #### C BC ####[facility] Otszzfowxc43[address] [place], [place] [address]Dr. Chrissy Frazier Neutrophils/100 WBC (Bld) 85.1 % Critically high 43.0-75.0 [facility] Comment on above: Performed By: #### C BC ####[facility] Ledxnwpzac2548 [place] [address]Dr. Chrissy Frazier Platelet mean volume (Bld) [Entitic vol] 10.6 fL Normal 9.5-13.5 [facility] Comment on above: Performed By: #### C BC ####[facility] Aoeaeygeal48[address] [place] [address]Dr. Chrissy Frazier PLT 411 103/ul Normal 150-450 [facility] Comment on above: Performed By: #### C BC ####[facility] Efjarktvhq[address] [place] [address]Dr. Tishrowan Frazier RBC 5.45 106/ul Normal 4.70-6.10 [facility] Comment on above: Performed By: #### C BC ####[facility] Kwxnjpcjno34[address] [place], [place] [address]Dr. Chrissy Frazier WBC 16.5 103/ul Critically high 4.0-11.0 [facility] Comment on above: Performed By: #### C BC ####[facility] Lnkbqctutg8401[address] [place], [place] [address]Dr. Chrissy Freddie LIPASEon 10-22-2022 Lipase [Catalytic activity/Vol] 57.0 U/L Critically low 73.0-393.0 [facility] Comment on above: Performed By: #### L JULIEN CMP, TERRENCE ####[facility] Nthwppyqiz2693 [place] [address]Dr. Chrissy Frazier PROF 14(COMP METB)on 022 Albumin [Mass/Vol] 4.2 g/dL Normal 3.4-5.0 [facility] Comment on above: Performed By: #### L IPA CMP, TERRENCE ####[facility] Kihscqdllq3712 [place] [address]Dr. Chrissy Frazier Albumin/Globulin [Mass ratio] 1.0 {ratio} Normal [facility] Comment on above: Performed By: #### L IPA, CMP, TERRENCE ####[facility] Tbpwuwkcdn9709 [place] [address]Dr. Chrissy Frazier ALP [Catalytic activity/Vol] 92 U/L Normal 46-116 [facility] Comment on above: Performed By: #### L IPA, CMP, TERRENCE ####[facility] Uslsxswwiq6823 [place] [address]Dr. Chrissy Frazier ALT [Catalytic activity/Vol] 26 U/L Normal 16-63 [facility] Comment on above: Performed By: #### L IPA, CMP, TERRENCE ####[facility] Einsoycymd9363 [place] [address]Dr. Chrissy Frazier Anion gap [Moles/Vol] 19.5 mmol/L Normal [facility] Comment on above: Performed By: #### L IPA, CMP, TERRENCE ####[facility] Szkuaotvfy8527[address] [place], [place] [address]Dr. Chrissy Frazier AST [Catalytic activity/Vol] 19 U/L Normal 15-37 [facility] Comment on above: Performed By: #### L IPA, CMP, TERRENCE ####[facility] Bsdqeifgvb512[address] [place], [place] [address]Dr. Chrissy Frazier Bilirubin [Mass/Vol] 0.7 mg/dL Normal 0.2-1.0 [facility] Comment on above: Performed By: #### L IPA, CMP, TERRENCE ####[facility] Erymbrncgg6442 [place] [address]Dr. Chrissy Frazier Calcium [Mass/Vol] 9.6 mg/dL Normal 8.5-10.1 [facility] Comment on above: Performed By: #### L IPA, CMP, TERRENCE ####[facility] Jlpfxcmjdc2516 [place] [address]Dr. Chrissy Frazier Chloride [Moles/Vol] 102 mmol/L Normal 98-107 [facility] Comment on above: Performed By: #### L IPA, CMP, TERRENCE ####[facility] Nhrykcmhry3959 [place] [address]Dr. Chrissy Frazier CO2 [Moles/Vol] 19.1 mmol/L Critically low 21.0-32.0 [facility] Comment on above: Performed By: #### L IPA CMP, TERRENCE ####[facility] Hxoqvoeyyz2989 [place] [address]Dr. Chrissy Frazier Creatinine [Mass/Vol] 1.47 mg/dL Critically high 0.70-1.30 [facility] Comment on above: Performed By: #### L IPA CMP, TERRENCE ####[facility] Amfnsfowon1900[address] [place], [place] [address]Dr. Chrissy Freddie EGFR-AF IRANIAN >60 Normal >=60 [facility] Comment on above: Performed By: #### L IPA CMP, TERRENCE ####[facility] Cmpcmwdgeb5036[address] [place], [place] [address]Dr. Tishrowan Freddie EGFR-NON AF IRANIAN 56 mL/min/1.73m2 Critically low >=60 [facility] Comment on above: Performed By: #### L IPA CMP, TERRENCE ####[facility] Bcbetjnoso00[address] [place], [place] [address]Dr. Chrissy Frazier Globulin (S) [Mass/Vol] 4.3 g/dL Normal [facility] Comment on above: Performed By: #### L IPA CMP, TERRENCE ####[facility] Nbxbwjtmup7510[address] [place], [place] [address]Dr. Chrissy Frazier Glucose [Mass/Vol] 189 mg/dL Critically high 74-106 [facility] Comment on above: Performed By: #### L IPA CMP, TERRENCE ####[facility] Zqovmrvuqs659[address] [place], [place] [address]Dr. Chrissy Frazier Potassium [Moles/Vol] 4.6 mmol/L Normal 3.5-5.1 [facility] Comment on above: Performed By: #### L IPA CMP, TERRENCE ####[facility] Bmophcwpkn518[address] [place], [place] [address]Dr. Chrissy Frazier Protein [Mass/Vol] 8.5 g/dL Critically high 6.4-8.2 [facility] Comment on above: Performed By: #### L IPA CMP, TERRENCE ####[facility] Qssvdnrwmu9091 [place] [id number]. Chrissy Freddie Sodium [Moles/Vol] 136 mmol/L Normal 136-145 [facility] Comment on above: Performed By: #### L IPA, CMP, TERRENCE ####[facility] Uvfsstnrcg2148 [place] [address]Dr. Chrissy Freddie Urea nitrogen [Mass/Vol] 16.0 mg/dL Normal 7.0-18.0 [facility] Comment on above: Performed By: #### L IPA, CMP, TERRENCE ####[facility] Qxhzasppka5769 [place] [address]Dr. Tishrowan Frazier Urea nitrogen/Creatinine [Mass ratio] 10.9 mg/mg Normal [facility] Comment on above: Performed By: #### L IPA, CMP, TERRENCE ####[facility] Tqdkrbyxks004[address] [place], [place] [address]Dr. Tishrowan Frazier AMYLASEon 09-03-2022 Amylase [Catalytic activity/Vol] 25 U/L Normal 25-115 [facility] Comment on above: Performed By: #### L IPA, TERRENCE, CMP ####[facility] Sgpdirquky397[address] [place], [place] [address]Dr. Chrissy Frazier CBC AUTO DIFFon 09-03-2022 BASO # 0.0 103/ul Normal 0.0-0.1 [facility] Comment on above: Performed By: #### C BC ####[facility] Rvjbngnhlc99[address] [place], [place] [address]Dr. Chrissy Frazier Basophils/100 WBC (Bld) 0.1 % Critically low 0.2-2.0 [facility] Comment on above: Performed By: #### C BC ####[facility] Emiajuuzcd080[address] [place], [place] [address]Dr. Chrissy Frazier EO # 0.0 103/ul Normal 0.0-0.7 [facility] Comment on above: Performed By: #### C BC ####[facility] Sinnaeoutc848[address] [place], [place] [address]Dr. Chrissy Frazier Eosinophils/100 WBC (Bld) 0.1 % Critically low 0.9-7.0 [facility] Comment on above: Performed By: #### C BC ####[facility] Oblnxhhrxf1562 [place] [address]Dr. Chrissy Frazier Erythrocyte distribution width (RBC) [Ratio] 14.0 % Normal 11.0-15.0 [facility] Comment on above: Performed By: #### C BC ####[facility] Ronrsyqtno0580 [place] [address]Dr. Chrissy Frazier Hematocrit (Bld) [Volume fraction] 42.5 % Normal 42.0-54.0 [facility] Comment on above: Performed By: #### C BC ####[facility] Swwtraembd817[address] [place], [place] [address]Dr. Chrissy Frazier Hemoglobin (Bld) [Mass/Vol] 14.1 g/dL Normal 14.0-18.0 [facility] Comment on above: Performed By: #### C BC ####[facility] Lugorxbqoy3965[address] [place], [place] [address]Dr. Chrissy Frazier IG # 0.06 10e3/ul Critically high 0.00-0.03 [facility] Comment on above: Performed By: #### C BC ####[facility] Cpydwutgtb739[address] [place], [place] [address]Dr. Chrissy Frazier IG % 0.4 % Normal 0.0-0.5 [facility] Comment on above: Performed By: #### C BC ####[facility] Idstyrwzod9999[address] [place], [place] [address]Dr. Chrissy Frazier LYMPH # 2.5 103/ul Normal 1.2-3.8 [facility] Comment on above: Performed By: #### C BC ####[facility] Dryvtpiscc6922[address] [place], [place] [address]Dr. Chrissy Frazier Lymphocytes/100 WBC (Bld) 16.3 % Critically low 20.5-60.0 [facility] Comment on above: Performed By: #### C BC ####[facility] Bfugpowpzj3100[address] [place], [place] [address]Dr. Chrissy Frazier MANUAL DIFF REQ NO Normal [facility] Comment on above: Performed By: #### C BC ####[facility] Bditfpdhqw2260 [place] [id number] Chrissy Freddie MCH (RBC) [Entitic mass] 28.1 pg Normal 25.9-34.0 [facility] Comment on above: Performed By: #### C BC ####[facility] Ldbofrelap4825 [place] [address]Dr. Chrissy Frazier MCHC (RBC) [Mass/Vol] 33.2 g/dL Normal 29.9-35.2 [facility] Comment on above: Performed By: #### C BC ####[facility] Dqkuhzurac1578 [place] [address]DrNancy Frazier MCV (RBC) [Entitic vol] 84.8 fL Normal 80.0-94.0 [facility] Comment on above: Performed By: #### C BC ####[facility] Vndltgvxgn307[address] [place], [place] [address]DrNancy Frazier MONO # 1.1 103/ul Critically high 0.3-0.8 [facility] Comment on above: Performed By: #### C BC ####[facility] Ljvmlskojv177[address] [place], [place] [address]DrNancy Frazier Monocytes/100 WBC (Bld) 7.4 % Normal 1.7-12.0 [facility] Comment on above: Performed By: #### C BC ####[facility] Shchrmvoin246[address] [place], [place] [address]DrNancy Frazier NEUT # 11.5 103/ul Critically high 1.4-6.5 [facility] Comment on above: Performed By: #### C BC ####[facility] Rinvivoqfy[address] [place], [place] [id number] Frazier Neutrophils/100 WBC (Bld) 75.7 % Critically high 43.0-75.0 [facility] Comment on above: Performed By: #### C BC ####[facility] Ydxsnjixrh465[address] [place], [place] [address]DrNancy Frazier Platelet mean volume (Bld) [Entitic vol] 10.6 fL Normal 9.5-13.5 [facility] Comment on above: Performed By: #### C BC ####[facility] Hjirpjmkgk2270 [place] [address]Dr. Chrissy Frazier PLT 310 103/ul Normal 150-450 [facility] Comment on above: Performed By: #### C BC ####[facility] Iodavavvnq9035 [place] [address]Dr. Chrissy Frazier RBC 5.01 106/ul Normal 4.70-6.10 [facility] Comment on above: Performed By: #### C BC ####[facility] Hkimtqxjhq6841 [place] [address]Dr. Chrissy Frazier WBC 15.2 103/ul Critically high 4.0-11.0 [facility] Comment on above: Performed By: #### C BC ####[facility] Vgioccfigs[address] [place], [place] [address]Dr. Chrissy Frazier LIPASEon 09-03-2022 Lipase [Catalytic activity/Vol] 46.0 U/L Critically low 73.0-393.0 [facility] [facility] Comment on above: Performed By: #### L TERRENCE VICTORIA, CMP ####[facility] Cplecdzxfh[address] [place], [place] [address]Dr. Chrissy Frazier PROF 14(COMP METB)on 022 Albumin [Mass/Vol] 3.7 g/dL Normal 3.4-5.0 [facility] Comment on above: Performed By: #### L TERRENCE VICTORIA, CMP ####[facility] Wbcnmjgsiw44[address] [place], [place] [address]Dr. Chrissy Frazier Albumin/Globulin [Mass ratio] 1.0 {ratio} Normal [facility] Comment on above: Performed By: #### L TERRENCE VICTORIA, CMP ####[facility] Mwpfpsxact[address] [place], [place] [address]Dr. Chrissy Frazier ALP [Catalytic activity/Vol] 65 U/L Normal 46-116 [facility] Comment on above: Performed By: #### L TERRENCE VICTORIA, CMP ####[facility] [address]xwkfl[address] [place] [address]Dr. Chrissy Frazier ALT [Catalytic activity/Vol] 42 U/L Normal 16-63 [facility] Comment on above: Performed By: #### L TERRENCE VICTORIA, CMP ####[facility] Nsiivhspwy[address] [place] [address]Dr. Chrissy Frazier Anion gap [Moles/Vol] 14.4 mmol/L Normal [facility] Comment on above: Performed By: #### L TERRENCE VICTORIA, CMP ####[facility] Wlddeuzfnj57[address] [place], [place] [address]Dr. Chrissy Frazier AST [Catalytic activity/Vol] 16 U/L Normal 15-37 [facility] Comment on above: Performed By: #### L TERRENCE VICTORIA, CMP ####[facility] Khnsildzue4613[address] [place], [place] [address]Dr. Chrissy Frazier Bilirubin [Mass/Vol] 0.4 mg/dL Normal 0.2-1.0 [facility] Comment on above: Performed By: #### L TERRENCE VICTORIA, CMP ####[facility] Lwxakldvvk9[address] [place], [place] [address]Dr. Chrissy Frazier Calcium [Mass/Vol] 8.7 mg/dL Normal 8.5-10.1 [facility] Comment on above: Performed By: #### L TERRENCE VICTORIA, CMP ####[facility] Darjkmxrte85[address] [place], [place] [address]Dr. Chrissy Frazier Chloride [Moles/Vol] 105 mmol/L Normal 98-107 [facility] Comment on above: Performed By: #### L TERRENCE VICTORIA, CMP ####[facility] Xvdrztlpgl28[address] [place] [address]Dr. Chrissy Frazier CO2 [Moles/Vol] 22.6 mmol/L Normal 21.0-32.0 [facility] Comment on above: Performed By: #### L TERRENCE VICTORIA, CMP ####[facility] Rvdpwbqcln[address] [place], [place] [address]Dr. Chrissy Frazier Creatinine [Mass/Vol] 1.11 mg/dL Normal 0.70-1.30 [facility] Comment on above: Performed By: #### L IPA TERRENCE, CMP ####[facility] Prpatomdxc[address] [place] [id number]. Chrissy Frazier EGFR-AF IRANIAN >60 Normal >=60 [facility] Comment on above: Performed By: #### L IPA TERRENCE, CMP ####[facility] Vcfqpgpteb6440 [place] [id number]. Chrissy Frazier EGFR-NON AF IRANIAN >60 Normal >=60 [facility] Comment on above: Performed By: #### L IPA TERRENCE, CMP ####[facility] Mmbxywoxad73[address] [place] [address]Dr. Chrissy Frazier Globulin (S) [Mass/Vol] 3.7 g/dL Normal [facility] Comment on above: Performed By: #### L JULIEN TERRENCE, CMP ####[facility] Fhsealwlei44[address] [place] [address]Dr. Chrissy Frazier Glucose [Mass/Vol] 121 mg/dL Critically high 74-106 [facility] Comment on above: Performed By: #### L JULIEN TERRENCE, CMP ####[facility] Pqvrydjpir18[address] [place] [address]Dr. Chrissy Frazier Potassium [Moles/Vol] 4.0 mmol/L Normal 3.5-5.1 [facility] Comment on above: Performed By: #### L JULIEN TERRENCE, CMP ####[facility] Ivwqhnaols74[address] [place] [address]Dr. Chrissy Frazier Protein [Mass/Vol] 7.4 g/dL Normal 6.4-8.2 [facility] Comment on above: Performed By: #### L JULIEN TERRENCE, CMP ####[facility] Uvpzsbpesu[address] [place] [address]Dr. Chrissy Rfazier Sodium [Moles/Vol] 138 mmol/L Normal 136-145 [facility] Comment on above: Performed By: #### L IPA TERRENCE, CMP ####[facility] Okfpcybvio8735 [place] [address]Dr. Chrissy Frazier Urea nitrogen [Mass/Vol] 6.0 mg/dL Critically low 7.0-18.0 [facility] Comment on above: Performed By: #### L IPA, TERRENCE, CMP ####[facility] Auacaxbuaq9424[address] [place], [place] [address]Dr. Chrissy Frazier Urea nitrogen/Creatinine [Mass ratio] 5.4 mg/mg Normal [facility] Comment on above: Performed By: #### L IPA, TERRENCE, CMP ####[facility] Mkaonmqdhj00[address] [place], [place] [address]Dr. Chrissy Frazier AMYLASEon 09-02-2022 Amylase [Catalytic activity/Vol] 29 U/L Normal 25-115 [facility] Comment on above: Performed By: #### A MY, CMP, LIPA ####[facility] Fasrsooliv04[address] [place], [place] [address]Dr. Chrissy Frazier CBC AUTO DIFFon 09-02-2022 BASO # 0.1 103/ul Normal 0.0-0.1 [facility] Comment on above: Performed By: #### C BC ####[facility] Bgnroolgxw[address] [place], [place] [address]Dr. Chrissy Frazier Basophils/100 WBC (Bld) 0.4 % Normal 0.2-2.0 [facility] Comment on above: Performed By: #### C BC ####[facility] Hkoamluhhj[address] [place], [place] [address]Dr. Chrissy Frazier EO # 0.1 103/ul Normal 0.0-0.7 [facility] Comment on above: Performed By: #### C BC ####[facility] Pkmablrxbz[address] [place], [place] [address]Dr. Chrissy Frazier Eosinophils/100 WBC (Bld) 0.7 % Critically low 0.9-7.0 [facility] Comment on above: Performed By: #### C BC ####[facility] Fxymeceauk65[address] [place], [place] [address]Dr. Chrissy Frazier Erythrocyte distribution width (RBC) [Ratio] 13.7 % Normal 11.0-15.0 [facility] Comment on above: Performed By: #### C BC ####[facility] Zloqjabibo25[address] [place] [id number]. Chrissy Frazier Hematocrit (Bld) [Volume fraction] 48.3 % Normal 42.0-54.0 [facility] Comment on above: Performed By: #### C BC ####[facility] Pjtekdldvz6787 [place] [id number]. Chrissy Frazier Hemoglobin (Bld) [Mass/Vol] 16.0 g/dL Normal 14.0-18.0 [facility] Comment on above: Performed By: #### C BC ####[facility] Ojdivbcvdm5573 [place] [id number]. Chrissy Freddie IG # 0.09 10e3/ul Critically high 0.00-0.03 [facility] Comment on above: Performed By: #### C BC ####[facility] Bjngkrzvxs2519 [place] [address]Dr. Chrissy Frazier IG % 0.5 % Normal 0.0-0.5 [facility] Comment on above: Performed By: #### C BC ####[facility] Iasyxvqyin62[address] [place] [address]Dr. Tishrowan Frazier LYMPH # 3.7 103/ul Normal 1.2-3.8 [facility] Comment on above: Performed By: #### C BC ####[facility] Thjlwgdqky25[address] [place] [address]Dr. Tishrowan Frazier Lymphocytes/100 WBC (Bld) 21.5 % Normal 20.5-60.0 [facility] Comment on above: Performed By: #### C BC ####[facility] Xftnwikfdq7214 [place] [id number]. Tishrowan Frazier MANUAL DIFF REQ NO Normal [facility] Comment on above: Performed By: #### C BC ####[facility] Mzhsxhzosw55[address] [place] [address]Dr. Chrissy Freddie MCH (RBC) [Entitic mass] 28.1 pg Normal 25.9-34.0 [facility] Comment on above: Performed By: #### C BC ####[facility] Eafdzoyqxb8757 [place] [id number]. Chrissy Frazier MCHC (RBC) [Mass/Vol] 33.1 g/dL Normal 29.9-35.2 [facility] Comment on above: Performed By: #### C BC ####[facility] Umioxkqnls7904 [place] [id number]. Chrissy Frazier MCV (RBC) [Entitic vol] 84.7 fL Normal 80.0-94.0 [facility] Comment on above: Performed By: #### C BC ####[facility] Xngtcecvde1222 [place] [id number]. Chrissy Frazier MONO # 0.7 103/ul Normal 0.3-0.8 [facility] Comment on above: Performed By: #### C BC ####[facility] Klimuyarkz26[address] [place] [address]Dr. Chrissy Frazier Monocytes/100 WBC (Bld) 4.2 % Normal 1.7-12.0 [facility] Comment on above: Performed By: #### C BC ####[facility] Nwlwzrqzsb[address] [place], [place] [address]Dr. Chrissy Frazier NEUT # 12.4 103/ul Critically high 1.4-6.5 [facility] Comment on above: Performed By: #### C BC ####[facility] Ikkcggunqc4346 [place] [address]Dr. Chrissy Frazier Neutrophils/100 WBC (Bld) 72.7 % Normal 43.0-75.0 [facility] Comment on above: Performed By: #### C BC ####[facility] Iggovqhfld0512 [place] [address]Dr. Chrissy Frazier Platelet mean volume (Bld) [Entitic vol] 10.9 fL Normal 9.5-13.5 [facility] Comment on above: Performed By: #### C BC ####[facility] Kvudfhfbng5526 [place] [id number]. Chrissy Freddie PLT 386 103/ul Normal 150-450 [facility] Comment on above: Performed By: #### C BC ####[facility] Rffgnjmmur4707 [place], [place] [address]Ws. Chrissy Frazier RBC 5.70 106/ul Normal 4.70-6.10 [facility] Comment on above: Performed By: #### C BC ####[facility] Nmiburglyv8459 [place] [id number]. Chrissy Frazier WBC 17.0 103/ul Critically high 4.0-11.0 [facility] Comment on above: Performed By: #### C BC ####[facility] Qjsbqrewsl5081 [place] [id number]. Chrissy Frazier Covid-19 PCR (CVDTBH)on 08-21 SARS-CoV-2 (COVID-19) RNA RHIANNON+probe Ql (Unsp spec) Not detected Normal NOT DETECTED [facility] Comment on above: Result Comment: When [...] for this test is supported by the [place] of [employer] and [employer] Service's declaration that [...] be used). Performed By: #### C VDTBH ####[facility] Vblhcdjwef5807 [place] [id number]. Chrissy Frazier LACTATE/LACTIC ACIDon 2021 Lactate [Moles/Vol] 7.1 mmol/L Critically high 0.4-1.9 [facility] Comment on above: Performed By: #### L ACT ####[facility] Poyeeeovmb4046 [place] [id number]. Chrissy Frazier Lactate [Moles/Vol] 8.6 mmol/L Critically high 0.4-1.9 [facility] Comment on above: Performed By: #### L ACT ####[facility] Kzpltuwtsd[address] [place], [place] [address]Dr. Chrissy Frazier LIPASEon 09-02-2022 Lipase [Catalytic activity/Vol] 60.0 U/L Critically low 73.0-393.0 [facility] Comment on above: Performed By: #### A MY, CMP, LIPA ####[facility] Rkwmbgerdd18[address] [place], [place] [address]Dr. Chrissy Frazier POINT OF CARE GLUCOSEon 08-21 Glucose [Mass/Vol] 140 mg/dL Critically high 74-106 [facility] Comment on above: Performed By: #### P OCGLUC ####[facility] Nggfigdron[address] [place], [place] [address]Dr. Chrissy Frazier PROF 14(COMP METB)on 022 Albumin [Mass/Vol] 4.3 g/dL Normal 3.4-5.0 [facility] Comment on above: Performed By: #### A MY, CMP, LIPA ####[facility] Lpkjsssyyl[address] [place], [place] [address]Dr. Chrissy Frazier Albumin/Globulin [Mass ratio] 1.0 {ratio} Normal [facility] Comment on above: Performed By: #### A MY, CMP, LIPA ####[facility] Wtuefdejrn79[address] [place] [address]Dr. Chrissy Frazier ALP [Catalytic activity/Vol] 82 U/L Normal 46-116 [facility] Comment on above: Performed By: #### A MY, CMP, LIPA ####[facility] Mwszuktmhs5117 [place] [address]Dr. Chrissy Frazier ALT [Catalytic activity/Vol] 48 U/L Normal 16-63 [facility] Comment on above: Performed By: #### A MY, CMP, LIPA ####[facility] Zozonzamkr4483 [place] [address]Dr. Chrissy Frazier Anion gap [Moles/Vol] 25.3 mmol/L Normal [facility] Comment on above: Performed By: #### A MY, CMP, LIPA ####[facility] Ircnmikbce7048 [place] [address]Dr. Chrissy Frazier AST [Catalytic activity/Vol] 33 U/L Normal 15-37 [facility] Comment on above: Performed By: #### A MY, CMP, LIPA ####[facility] Cfmgjbayui64[address] [place], [place] [address]Dr. Chrissy Frazier Bilirubin [Mass/Vol] 0.7 mg/dL Normal 0.2-1.0 [facility] Comment on above: Performed By: #### A MY, CMP, LIPA ####[facility] Hpczqihrrb62[address] [place], [place] [address]Dr. Chrissy Frazier Calcium [Mass/Vol] 9.5 mg/dL Normal 8.5-10.1 [facility] Comment on above: Performed By: #### A MY, CMP, LIPA ####[facility] Cocgoaqzve54[address] [place], [place] [address]Dr. Chrissy Frazier Chloride [Moles/Vol] 100 mmol/L Normal 98-107 [facility] Comment on above: Performed By: #### A MY, CMP, LIPA ####[facility] Xwolotdsys9880[address] [place], [place] [address]Dr. Chrissy Frazier CO2 [Moles/Vol] 14.2 mmol/L Critically low 21.0-32.0 [facility] Comment on above: Performed By: #### A MY, CMP, LIPA ####[facility] Juatwjldts[address] [place], [place] [address]Dr. Chrissy Frazier Creatinine [Mass/Vol] 1.70 mg/dL Critically high 0.70-1.30 [facility] Comment on above: Performed By: #### A MY, CMP, LIPA ####[facility] Xfynsmawyb13[address] [place], [place] [address]Dr. Chrissy Frazier EGFR-AF IRANIAN 57 mL/min/1.73m2 Critically low >=60 [facility] Comment on above: Performed By: #### A MY, CMP, LIPA ####[facility] Zxpszcqaqd8565 [place] [id number]. Chrissy Frazier EGFR-NON AF IRANIAN 47 mL/min/1.73m2 Critically low >=60 [facility] Comment on above: Performed By: #### A MY, CMP, LIPA ####[facility] Zjlgrcaxuq0935 [place] [address]Dr. Chrissy Frazier Globulin (S) [Mass/Vol] 4.2 g/dL Normal [facility] Comment on above: Performed By: #### A MY, CMP, LIPA ####[facility] Foolhnwubo62[address] [place] [address]Dr. Chrissy Frazier Glucose [Mass/Vol] 212 mg/dL Critically high 74-106 [facility] Comment on above: Performed By: #### A MY, CMP, LIPA ####[facility] Bcbogildvk9335 [place] [address]Dr. hCrissy Frazier Potassium [Moles/Vol] 3.5 mmol/L Normal 3.5-5.1 [facility] Comment on above: Performed By: #### A MY, CMP, LIPA ####[facility] Lznqppxfyu3983 [place] [address]Dr. Chrissy Frazier Protein [Mass/Vol] 8.5 g/dL Critically high 6.4-8.2 [facility] Comment on above: Performed By: #### A MY, CMP, LIPA ####[facility] Lhkxdngeia5112 [place] [address]Dr. Chrissy Frazier Sodium [Moles/Vol] 136 mmol/L Normal 136-145 [facility] Comment on above: Performed By: #### A MY, CMP, LIPA ####[facility] Buxectthjd9595 [place] [address]Dr. Chrissy Frazier Urea nitrogen [Mass/Vol] 9.0 mg/dL Normal 7.0-18.0 [facility] Comment on above: Performed By: #### A MY, CMP, LIPA ####[facility] Rqmhzidgbb5380 [place] [address]Dr. Yilan Frazier Urea nitrogen/Creatinine [Mass ratio] 5.3 mg/mg Normal [facility] Comment on above: Performed By: #### A MY, CMP, LIPA ####[facility] Ityntlgyyj689[address] [place], [place] [address]Dr. hCrissy Frazier AMYLASEon 07-07-2022 Amylase [Catalytic activity/Vol] 33 U/L Normal 25-115 [facility] Comment on above: Performed By: #### C MP, TERRENCE, BNP, LIPA ####[facility] Msgkvnzrvx440[address] [place], [place] [address]Dr. Chrissy Frazier BNPon 07-07-2022 Natriuretic peptide B (Bld) [Mass/Vol] 29.0 pg/mL Normal <=450.0 [facility] Comment on above: Performed By: #### C MP, TERRENCE, BNP, LIPA ####[facility] Xebfyoaqgh408[address] [place], [place] [address]Dr. Chrissy Frazier CBC AUTO DIFFon 07-07-2022 BASO # 0.0 103/ul Normal 0.0-0.1 [facility] Comment on above: Performed By: #### C BC ####[facility] Wwbediiqio99[address] [place], [place] [address]Dr. Chrissy Frazier Basophils/100 WBC (Bld) 0.4 % Normal 0.2-2.0 [facility] Comment on above: Performed By: #### C BC ####[facility] Bitiqkuzxn4499[address] [place], [place] [address]Dr. Chrissy Frazier EO # 0.3 103/ul Normal 0.0-0.7 [facility] Comment on above: Performed By: #### C BC ####[facility] Xbahwjufhc40[address] [place], [place] [address]Dr. Chrissy Frazier Eosinophils/100 WBC (Bld) 3.0 % Normal 0.9-7.0 [facility] Comment on above: Performed By: #### C BC ####[facility] Smjqnugajz045[address] [place], [place] [address]Dr. Chrissy Frazier Erythrocyte distribution width (RBC) [Ratio] 14.0 % Normal 11.0-15.0 [facility] Comment on above: Performed By: #### C BC ####[facility] Esewyogywa2609 [place] [address]DrNancy Frazier Hematocrit (Bld) [Volume fraction] 42.8 % Normal 42.0-54.0 [facility] Comment on above: Performed By: #### C BC ####[facility] Azrvtmzcie4817 [place] [address]DrNancy Frazier Hemoglobin (Bld) [Mass/Vol] 14.3 g/dL Normal 14.0-18.0 [facility] Comment on above: Result Comment: IV F LUIDS RUNNING Performed By: #### C BC ####[facility] Kugpogchoz[address] [place], [place] [address]DrNancy Frazier IG # 0.05 10e3/ul Critically high 0.00-0.03 [facility] Comment on above: Performed By: #### C BC ####[facility] Batkailwfp85[address] [place], [place] [address]DrNancy Frazier IG % 0.5 % Normal 0.0-0.5 [facility] Comment on above: Performed By: #### C BC ####[facility] Dsbadotihe25[address] [place], [place] [address]DrNancy Frazier LYMPH # 2.4 103/ul Normal 1.2-3.8 [facility] Comment on above: Performed By: #### C BC ####[facility] Lrjvpekcma47[address] [place], [place] [address]DrNancy Frazier Lymphocytes/100 WBC (Bld) 25.5 % Normal 20.5-60.0 [facility] Comment on above: Performed By: #### C BC ####[facility] Dydhhlrrvs[address] [place], [place] [address]DrNancy Frazier MANUAL DIFF REQ NO Normal [facility] Comment on above: Performed By: #### C BC ####[facility] Wwyqsjdopo7601 [place] [address]DrNancy Frazier MCH (RBC) [Entitic mass] 28.5 pg Normal 25.9-34.0 [facility] Comment on above: Performed By: #### C BC ####[facility] Fodswmytmk1752 [place] [address]Dr. Chrissy Frazier MCHC (RBC) [Mass/Vol] 33.4 g/dL Normal 29.9-35.2 [facility] Comment on above: Performed By: #### C BC ####[facility] Eyrlrzjhfb6309 [place] [address]Dr. Chrissy Frazier MCV (RBC) [Entitic vol] 85.3 fL Normal 80.0-94.0 [facility] Comment on above: Performed By: #### C BC ####[facility] Savzgewpog69[address] [place], [place] [address]DrNancy Frazier MONO # 0.7 103/ul Normal 0.3-0.8 [facility] Comment on above: Performed By: #### C BC ####[facility] Buazsekrgm509[address] [place], [place] [address]Dr. Chrissy Frazier Monocytes/100 WBC (Bld) 7.8 % Normal 1.7-12.0 [facility] Comment on above: Performed By: #### C BC ####[facility] Rzxlsluipb365[address] [place], [place] [address]Dr. Chrissy Frazier NEUT # 5.8 103/ul Normal 1.4-6.5 [facility] Comment on above: Performed By: #### C BC ####[facility] Hovfdrtglt237[address] [place], [place] [address]Dr. Chrissy Frazier Neutrophils/100 WBC (Bld) 62.8 % Normal 43.0-75.0 [facility] Comment on above: Performed By: #### C BC ####[facility] Nfszkbyoew367[address] [place], [place] [address]Dr. Chrissy Frazier Platelet mean volume (Bld) [Entitic vol] 10.8 fL Normal 9.5-13.5 [facility] Comment on above: Performed By: #### C BC ####[facility] Qafdmxyvsc34[address] [place], [place] [address]Dr. Chrissy Frazier PLT 310 103/ul Normal 150-450 [facility] Comment on above: Performed By: #### C BC ####[facility] Nmpswbahao8887 [place] [id number]. Chrissy Frazier RBC 5.02 106/ul Normal 4.70-6.10 [facility] Comment on above: Performed By: #### C BC ####[facility] Hyfijbegdr8937 [place], [place] [address]Vh. Chrissy Frazier WBC 9.3 103/ul Normal 4.0-11.0 [facility] Comment on above: Performed By: #### C BC ####[facility] Vqwlydjhgx5359 [place] [address]Dr. Tishrowan Freddie CULTURE URINEon 07-07-2022 CULTURE URINE Culture Observations: NO GROWTH. Normal [facility] Comment on above: Performed By: #### U RCX ####[facility] Cxrbetpmfu1633 [place] [id number]. Chrissy Frazier DRUG SCREEN RAPID (URINE)on 07-07-2022 AMP Negative Normal NEGATIVE [facility] Comment on above: Performed By: #### D RUGRPD ####[facility] Zgstxmvmwe9864 [place] [address]Dr. Chrissy Frazier BAR Negative Normal NEGATIVE [facility] Comment on above: Performed By: #### D RUGRPD ####[facility] Yxsxbriwlq3170 [place] [address]Dr. Chrissy Frazier BUP Negative Normal NEGATIVE [facility] Comment on above: Performed By: #### D RUGRPD ####[facility] Docdmlvscx1796 [place] [address]Dr. Chrissy Frazier BZO Positive Abnormal NEGATIVE [facility] Comment on above: Performed By: #### D RUGRPD ####[facility] Hghonanllr8543 [place] [address]Dr. Chrissy Frazier LAUREN Negative Normal NEGATIVE [facility] Comment on above: Performed By: #### D RUGRPD ####[facility] Qzeodwadbk9006 [place] [id number]. Chrissy Frazier CUT-OFFS SEE BELOW Normal [facility] Comment on above: Result Comment: AMP (Amphetamine): 500ng/mL, BAR (Barbituates): 200 ng/mL, BZO (Benzodiazepines): 150 ng/mL, BUP (Buprenorphine): 10 ng/mL, LAUREN (Cocaine): 150 ng/mL, mAMP (Methamphetamine): 500 ng/mL, MTD (Methadone): 200 ng/mL, OPI (Opiates): 100 ng/mL, OXY (Oxycodone): 100 ng/mL, PCP (Phencyclidine): 25 ng/mL, PPX (Propoxyphene): 300 ng/mL, THC (Cannabinoids): 50 ng/mL, TCA (Trycyclic Antidepressants): 300 ng/mL Performed By: #### D RUGRPD ####[facility] Kbhqehlvmz[address] [place], [place] [address]Dr. [facility] DRUG CUT HEADER DRUG CLASS TEST SYSTEM CUT-OFF CONCENTRATIONS ARE FOLLOWS: Normal [facility] Comment on above: Performed By: #### D RUGRPD ####[facility] Sbbptqzkql23[address] [place], [place] [address]Dr. Tishrowan [facility] mAMP Negative Normal NEGATIVE [facility] Comment on above: Performed By: #### D RUGRPD ####[facility] Mpytheesys[address] [place], [place] [address]Dr. Chrissy [facility] MTD Negative Normal NEGATIVE [facility] Comment on above: Performed By: #### D RUGRPD ####[facility] Shrtcnibvy06[address] [place], [place] [address]Dr. Chrissy [facility] OPI Negative Normal NEGATIVE [facility] Comment on above: Performed By: #### D RUGRPD ####[facility] Zwwtciwidr[address] [place], [place] [address]Dr. Chrissy Frazier OXY Negative Normal NEGATIVE [facility] Comment on above: Performed By: #### D RUGRPD ####[facility] Zpyxgymrdr90[address] [place], [place] [address]Dr. Chrissy [facility] PCP Negative Normal NEGATIVE [facility] Comment on above: Performed By: #### D RUGRPD ####[facility] Haqcprlgxs[address] [place], [place] [address]Dr. Chrissy Freddie PPX Negative Normal NEGATIVE [facility] Comment on above: Performed By: #### D RUGRPD ####[facility] Bkfrygkigt[address] [place] [address]Dr. Chrissy Freddie TCA Positive Abnormal NEGATIVE [facility] Comment on above: Performed By: #### D RUGRPD ####[facility] Vwisrqfjjy5785 [place] [place] [id number]. Chrissy Freddie THC Positive Abnormal NEGATIVE [facility] Comment on above: Performed By: #### D RUGRPD ####[facility] Kceqpjllgh[address] [place] [address]Dr. Tishrowan Frazier LIPASEon 07-07-2022 Lipase [Catalytic activity/Vol] 118.0 U/L Normal 73.0-393.0 [facility] Comment on above: Performed By: #### L IPA ####[facility] Hbthreuicb12[address] [place], [place] [address]Dr. Chrissy Frazier Lipase [Catalytic activity/Vol] 114.0 U/L Normal 73.0-393.0 [facility] Comment on above: Performed By: #### C MP, TERRENCE, BNP, LIPA ####[facility] Idfzbvlhuu9[address] [place], [place] [address]Dr. Chrissy Frazier PROF 14(COMP METB)on 022 Albumin [Mass/Vol] 3.4 g/dL Normal 3.4-5.0 [facility] Comment on above: Performed By: #### C MP, TERRENCE, BNP, LIPA ####[facility] Wfhagbotre[address] [place] [address]Dr. Chrissy Frazier Albumin/Globulin [Mass ratio] 1.1 {ratio} Normal [facility] Comment on above: Performed By: #### C MP, TERRENCE, BNP, LIPA ####[facility] Xlkrwprcoq04[address] [place] [address]Dr. Chrissy Frazier ALP [Catalytic activity/Vol] 68 U/L Normal 46-116 [facility] Comment on above: Performed By: #### C MP, TERRENCE, BNP, LIPA ####[facility] Socsctuhbs[address] [place] [address]Dr. Chrissy Frazier ALT [Catalytic activity/Vol] 93 U/L Critically high 16-63 [facility] Comment on above: Performed By: #### C MP, TERRENCE, BNP, LIPA ####[facility] Mzjupebxsr4244 [place] [address]Dr. Chrissy Frazier Anion gap [Moles/Vol] 14.4 mmol/L Normal [facility] Comment on above: Performed By: #### C MP, TERRENCE, BNP, LIPA ####[facility] Detzftogki3484 [place] [address]Dr. Chrissy Fraizer AST [Catalytic activity/Vol] 33 U/L Normal 15-37 [facility] Comment on above: Performed By: #### C MP, TERRENCE, BNP, LIPA ####[facility] Vstrjvmkhn3469 [place] [address]Dr. Chrissy Frazier Bilirubin [Mass/Vol] 0.9 mg/dL Normal 0.2-1.0 [facility] Comment on above: Performed By: #### C MP, TERRENCE, BNP, LIPA ####[facility] Rbnvxqbvht523[address] [place], [place] [address]Dr. Chrissy Frazier Calcium [Mass/Vol] 8.2 mg/dL Critically low 8.5-10.1 [facility] Comment on above: Performed By: #### C MP, TERRENCE, BNP, LIPA ####[facility] Qxnesqfpwz850[address] [place], [place] [address]Dr. Chrissy Frazier Chloride [Moles/Vol] 103 mmol/L Normal 98-107 [facility] Comment on above: Performed By: #### C MP, TERRENCE, BNP, LIPA ####[facility] Yblwpifjwr0060[address] [place], [place] [address]Dr. Chrissy Frazier CO2 [Moles/Vol] 22.9 mmol/L Normal 21.0-32.0 [facility] Comment on above: Performed By: #### C MP, TERRENCE, BNP, LIPA ####[facility] Zobayuvzpb432[address] [place], [place] [address]Dr. Chrissy Frazier Creatinine [Mass/Vol] 1.07 mg/dL Normal 0.70-1.30 [facility] Comment on above: Performed By: #### C MP, TERRENCE, BNP, LIPA ####[facility] Rtifhpgtqs0027 [place] [address]Dr. Chrissy Frazier EGFR-AF IRANIAN >60 Normal >=60 [facility] Comment on above: Performed By: #### C MP, TERRENCE, BNP, LIPA ####[facility] Gwusniktnu4485 [place] [address]Dr. Chrissy Frazier EGFR-NON AF IRANIAN >60 Normal >=60 [facility] Comment on above: Performed By: #### C MP, TERRENCE, BNP, LIPA ####[facility] Cgutknyget8914 [place] [address]Dr. Chrissy Frazier Globulin (S) [Mass/Vol] 3.2 g/dL Normal [facility] Comment on above: Performed By: #### C MP, TERRENCE, BNP, LIPA ####[facility] Nclbsyytbv4732[address] [place], [place] [address]Dr. Chrissy Frazier Glucose [Mass/Vol] 96 mg/dL Normal 74-106 [facility] Comment on above: Performed By: #### C MP, TERRENCE, BNP, LIPA ####[facility] Lxhlxvnldy4444 [place] [address]Dr. Chrissy Frazier Potassium [Moles/Vol] 3.3 mmol/L Critically low 3.5-5.1 [facility] Comment on above: Performed By: #### C MP, TERRENCE, BNP, LIPA ####[facility] Pddqukwkkw0668 [place] [address]Dr. Chrissy Frazier Protein [Mass/Vol] 6.6 g/dL Normal 6.4-8.2 [facility] Comment on above: Performed By: #### C MP, TERRENCE, BNP, LIPA ####[facility] Vuryrrsnuv6889 [place] [address]Dr. Chrissy Frazier Sodium [Moles/Vol] 137 mmol/L Normal 136-145 [facility] Comment on above: Performed By: #### C MP, TERRENCE, BNP, LIPA ####[facility] Lfhkfnwsto260[address] [place], [place] [address]Dr. Chrissy Frazier Urea nitrogen [Mass/Vol] 13.0 mg/dL Normal 7.0-18.0 [facility] Comment on above: Performed By: #### C MP, TERRENCE, BNP, LIPA ####[facility] Kxqxenguts857[address] [place], [place] [address]Dr. Chrissy Frazier Urea nitrogen/Creatinine [Mass ratio] 12.1 mg/mg Normal [facility] Comment on above: Performed By: #### C MP, TERRENCE, BNP, LIPA ####[facility] Fvhhxnwwun65[address] [place], [place] [address]Dr. Chrissy Frazier UA RANDOM W/MICROSCOPICon BACTERIA TRACE Abnormal NONE SEEN [facility] Comment on above: Performed By: #### U AMIC ####[facility] Dxjoxvcdpv265[address] [place], [place] [address]Dr. Chrissy Frazier Bilirubin Ql (U) Negative Normal NEGATIVE [facility] Comment on above: Performed By: #### U AMIC ####[facility] Sxdbjtqzuj007[address] [place], [place] [address]Dr. Chrissy Frazier CAST NONE SEEN Normal NONE SEEN [facility] Comment on above: Performed By: #### U AMIC ####[facility] Aaqmsnomnd864[address] [place], [place] [address]Dr. Chrissy Frazier Clarity (U) CLEAR Normal CLEAR [facility] Comment on above: Performed By: #### U AMIC ####[facility] Hmdqwsywpt710[address] [place], [place] [address]Dr. Chrissy Frazier Color (U) YELLOW Normal YELLOW [facility] Comment on above: Performed By: #### U AMIC ####[facility] Brupshcebh1233[address] [place], [place] [address]Dr. Chrissy Frazier Crystals LM Nom (Urine sed) SEEN Abnormal NONE SEEN [facility] Comment on above: Performed By: #### U AMIC ####[facility] Pjbzidkdzi2704[address] [place], [place] [address]Dr. Chrissy Frazier Epithelial cells LM Ql (Urine sed) RARE Normal NONE SEEN /RARE [facility] Comment on above: Performed By: #### U AMIC ####[facility] Hjxsxxmpgc2725 [place] [address]Dr. Chrissy Frazier Glucose Ql (U) Negative Normal NEGATIVE [facility] Comment on above: Performed By: #### U AMIC ####[facility] Qsuycmzehz312[address] [place], [place] [address]Dr. Chrissy Frazier Hemoglobin Ql (U) Negative Normal NEGATIVE [facility] Comment on above: Performed By: #### U AMIC ####[facility] Rkqcbniofo228[address] [place], [place] [address]Dr. Chrissy Frazier Ketones Ql (U) 15 mg/dl Abnormal NEGATIVE [facility] Comment on above: Performed By: #### U AMIC ####[facility] Mqippjtiez2838[address] [place], [place] [address]Dr. Chrissy Frazier LEUKOCYTES Negative Normal NEGATIVE [facility] Comment on above: Performed By: #### U AMIC ####[facility] Bhebxnoypm757[address] [place], [place] [address]Dr. Chrissy Frazier MUCOUS NONE SEEN Normal NONE SEEN [facility] Comment on above: Performed By: #### U AMIC ####[facility] Vnxqmqcbzv548[address] [place], [place] [address]Dr. Chrissy Frazier Nitrite Ql (U) Negative Normal NEGATIVE [facility] Comment on above: Performed By: #### U AMIC ####[facility] Dgprsiumgv2747[address] [place], [place] [address]Dr. Chrissy Frazier pH (U) 6.0 [pH] Normal 5-9 [facility] Comment on above: Performed By: #### U AMIC ####[facility] Jwmbphdwvh916[address] [place], [place] [address]Dr. Chrissy Frazier RBC 0-2 Normal 0-2 [facility] Comment on above: Performed By: #### U AMIC ####[facility] Apvrvzeycc4599[address] [place], [place] [address]Dr. Chrissy Frazier SPEC GRAVITY 1.015 Normal 1.005-<=1.025 [facility] Comment on above: Performed By: #### U AMIC ####[facility] Pcxxwwtvtn0331 [place] [address]Dr. Chrissy Frazier UA PROTEIN Negative Normal NEGATIVE/ TRACE [facility] Comment on above: Performed By: #### U AMIC ####[facility] Fcwabofuih0165 [place] [address]Dr. Chrissy Frazier URIC ACID CRYSTALS RARE Normal [facility] Comment on above: Performed By: #### U AMIC ####[facility] Twjoadebop0888 [place] [address]Dr. Chrissy Freddie Urobilinogen Qn (U) 0.2 {Estrellita'U}/dL Normal 0.2 - 1. 0 [facility] Comment on above: Performed By: #### U AMIC ####[facility] Ykswlgdpxs537[address] [place], [place] [address]Dr. Tishrowan Frazier WBC 0-2 Abnormal NONE SEEN [facility] Comment on above: Performed By: #### U AMIC ####[facility] Xfmasuyrgg5810[address] [place], [place] [address]Dr. Chrissy Freddie AMYLASEon 07-06-2022 Amylase [Catalytic activity/Vol] 37 U/L Normal 25-115 [facility] Comment on above: Performed By: #### C MP, LIPA, TERRENCE ####[facility] Anjpmiatrj273[address] [place], [place] [address]Dr. Chrissy Frazier CBC AUTO DIFFon 07-06-2022 BASO # 0.1 103/ul Normal 0.0-0.1 [facility] Comment on above: Performed By: #### C BC ####[facility] Cxyrqlzrjm660[address] [place], [place] [address]Dr. Tishrowan Frazier Basophils/100 WBC (Bld) 0.4 % Normal 0.2-2.0 [facility] Comment on above: Performed By: #### C BC ####[facility] Egdiaflbll048[address] [place], [place] [address]Dr. Chrissy Frazier EO # 0.1 103/ul Normal 0.0-0.7 [facility] Comment on above: Performed By: #### C BC ####[facility] Snsfmhzink0720 [place] [address]Dr. Chrissy Frazier Eosinophils/100 WBC (Bld) 0.5 % Critically low 0.9-7.0 [facility] Comment on above: Performed By: #### C BC ####[facility] Rgvzauzdpt8833[address] [place], [place] [address]Dr. Chrissy Frazier Erythrocyte distribution width (RBC) [Ratio] 13.6 % Normal 11.0-15.0 [facility] Comment on above: Performed By: #### C BC ####[facility] Etouioshsk765[address] [place], [place] [address]Dr. Chrissy Frazier Hematocrit (Bld) [Volume fraction] 47.9 % Normal 42.0-54.0 [facility] Comment on above: Performed By: #### C BC ####[facility] Snsmgfzobi028[address] [place], [place] [address]Dr. Chrissy Frazier Hemoglobin (Bld) [Mass/Vol] 16.4 g/dL Normal 14.0-18.0 [facility] Comment on above: Performed By: #### C BC ####[facility] Lalipprcik287[address] [place], [place] [address]Dr. Chrissy Frazier IG # 0.09 10e3/ul Critically high 0.00-0.03 [facility] Comment on above: Performed By: #### C BC ####[facility] Iyquwzfrto230[address] [place], [place] [address]Dr. Chrissy Frazier IG % 0.6 % Critically high 0.0-0.5 [facility] Comment on above: Performed By: #### C BC ####[facility] Tyvtlbtimb2987[address] [place], [place] [address]Dr. Chrissy Frazier LYMPH # 2.5 103/ul Normal 1.2-3.8 [facility] Comment on above: Performed By: #### C BC ####[facility] Ahopgycbbj678[address] [place], [place] [address]Dr. Chrissy Frazier Lymphocytes/100 WBC (Bld) 16.7 % Critically low 20.5-60.0 [facility] Comment on above: Performed By: #### C BC ####[facility] Kjwuslbidm9576 [place] [address]DrNancy Frazier MANUAL DIFF REQ NO Normal [facility] Comment on above: Performed By: #### C BC ####[facility] Rqjymzjsdr9004 [place] [address]DrNancy Frazier MCH (RBC) [Entitic mass] 28.1 pg Normal 25.9-34.0 [facility] Comment on above: Performed By: #### C BC ####[facility] Ghgzbwsubd927[address] [place], [place] [address]DrNancy Frazier MCHC (RBC) [Mass/Vol] 34.2 g/dL Normal 29.9-35.2 [facility] Comment on above: Performed By: #### C BC ####[facility] Qyfzeyjbrn9518[address] [place], [place] [address]DrNancy Frazier MCV (RBC) [Entitic vol] 82.2 fL Normal 80.0-94.0 [facility] Comment on above: Performed By: #### C BC ####[facility] Gpykbnajsr723[address] [place], [place] [address]DrNancy Frazier MONO # 1.0 103/ul Critically high 0.3-0.8 [facility] Comment on above: Performed By: #### C BC ####[facility] Joqvfofabr849[address] [place], [place] [address]DrNancy Frazier Monocytes/100 WBC (Bld) 6.7 % Normal 1.7-12.0 [facility] Comment on above: Performed By: #### C BC ####[facility] Bdzzunrpdt759[address] [place], [place] [address]DrNancy Frazier NEUT # 11.3 103/ul Critically high 1.4-6.5 [facility] Comment on above: Performed By: #### C BC ####[facility] Nymwmoqorf135[address] [place], [place] [address]DrNancy Frazier Neutrophils/100 WBC (Bld) 75.1 % Critically high 43.0-75.0 [facility] Comment on above: Performed By: #### C BC ####[facility] Ebzfkwezxj7363 [place] [id number]. Chrissy Frazier Platelet mean volume (Bld) [Entitic vol] 10.6 fL Normal 9.5-13.5 [facility] Comment on above: Performed By: #### C BC ####[facility] Dsntdahlej9036 [place] [id number]. Chrissy Frazier PLT 416 103/ul Normal 150-450 [facility] Comment on above: Performed By: #### C BC ####[facility] Sgmfdneryt4709 [place] [id number]. Chrissy Frazier RBC 5.83 106/ul Normal 4.70-6.10 [facility] Comment on above: Performed By: #### C BC ####[facility] Ahzugelsol7058 [place] [id number]. Chrissy Frazier WBC 15.0 103/ul Critically high 4.0-11.0 [facility] Comment on above: Performed By: #### C BC ####[facility] Jtdhgkcdpa0435 [place] [id number]. Chrissy Frazier [facility] PCR [facility]on 06-21 SARS-CoV-2 (COVID-19) RNA RHIANNON+probe Ql (Unsp spec) Not detected Normal NOT DETECTED [facility] Comment on above: Result Comment: When [...] for this test is supported by the [place] Manager of Health and Human Service's declaration [...] be used). Performed By: #### C VDTBH ####[facility] Yopouufdxy1174 [place] [address]Dr. Chrissy Frazier LIPASEon 07-06-2022 Lipase [Catalytic activity/Vol] 130.0 U/L Normal 73.0-393.0 [facility] Comment on above: Performed By: #### C OSWALD ADAIR, TERRENCE ####[facility] Uznzpnckye7775 [place] [address]Dr. Chrissy Frazier PROF 14(COMP METB)on 022 Albumin [Mass/Vol] 4.4 g/dL Normal 3.4-5.0 [facility] Comment on above: Performed By: #### C MANA LIPA, TERRENCE ####[facility] Qlhfprziev625[address] [place], [place] [address]Dr. Chrissy Frazier Albumin/Globulin [Mass ratio] 1.1 {ratio} Normal [facility] Comment on above: Performed By: #### C OSWALD ADAIR TERRENCE ####[facility] Qjtmfnnsrs5847[address] [place], [place] [address]Dr. Chrissy Frazier ALP [Catalytic activity/Vol] 83 U/L Normal 46-116 [facility] Comment on above: Performed By: #### C MANA LIPA, TERRENCE ####[facility] Nprpkumubl4499 [place] [address]Dr. Chrissy Frazier ALT [Catalytic activity/Vol] 107 U/L Critically high 16-63 [facility] Comment on above: Performed By: #### C TESSA ADAIRA, TERRENCE ####[facility] Ksohjuppep7818 [place] [address]Dr. Chrissy Frazier Anion gap [Moles/Vol] 20.5 mmol/L Normal [facility] Comment on above: Performed By: #### C MANA LIPA, TERRENCE ####[facility] Hqoxcgjngo4401[address] [place], [place] [address]Dr. Chrissy Frazier AST [Catalytic activity/Vol] 46 U/L Critically high 15-37 [facility] Comment on above: Performed By: #### C OSWALD ADAIR, TERRENCE ####[facility] Herzatvprw0195 [place] [address]Dr. Chrissy Frazier Bilirubin [Mass/Vol] 1.2 mg/dL Critically high 0.2-1.0 [facility] Comment on above: Performed By: #### C TESSA ADAIRA, TERRENCE ####[facility] Omfdpjsgfa[address] [place], [place] [address]Dr. Chrissy Frazier Calcium [Mass/Vol] 9.1 mg/dL Normal 8.5-10.1 [facility] Comment on above: Performed By: #### C MANA LIPA, TERRENCE ####[facility] Fjxwedknaz385[address] [place], [place] [address]Dr. Chrissy Frazier Chloride [Moles/Vol] 100 mmol/L Normal 98-107 [facility] Comment on above: Performed By: #### C TESSA ADAIRA, TERRENCE ####[facility] Yrbafnluyz2485[address] [place], [place] [address]Dr. Chrissy Frazier CO2 [Moles/Vol] 18.6 mmol/L Critically low 21.0-32.0 [facility] Comment on above: Performed By: #### C MANA LIPA, TERRENCE ####[facility] Hmokaicixm9035[address] [place], [place] [address]Dr. Chrissy Frazier Creatinine [Mass/Vol] 1.44 mg/dL Critically high 0.70-1.30 [facility] Comment on above: Performed By: #### C MANA LIPA, TERRENCE ####[facility] Oneqszplze1310[address] [place], [place] [address]Dr. Chrissy Frazier EGFR-AF IRANIAN >60 Normal >=60 [facility] Comment on above: Performed By: #### C MP, LIPA, TERRENCE ####[facility] Heennijxcu8044[address] [place], [place] [address]Dr. Chrissy Frazier EGFR-NON AF IRANIAN 57 mL/min/1.73m2 Critically low >=60 [facility] Comment on above: Performed By: #### C MANA LIPA, TERRENCE ####[facility] Iuxfygdjrt7341 [place] [address]Dr. Chrissy Frazier Globulin (S) [Mass/Vol] 4.0 g/dL Normal [facility] Comment on above: Performed By: #### C MANA LIPA, TERRENCE ####[facility] Bheebdrzwt8449 [place] [address]Dr. Chrissy Frazier Glucose [Mass/Vol] 117 mg/dL Critically high 74-106 [facility] Comment on above: Performed By: #### C MANA LIPA, TERRENCE ####[facility] Xbzoorqvbe89299[address] [place], [place] [address]Dr. Chrissy Frazier Potassium [Moles/Vol] 3.1 mmol/L Critically low 3.5-5.1 [facility] Comment on above: Performed By: #### C MANA LIPA, TERRENCE ####[facility] Bsmxbqfqxz275[address] [place], [place] [address]Dr. Chrissy Frazier Protein [Mass/Vol] 8.4 g/dL Critically high 6.4-8.2 [facility] Comment on above: Performed By: #### C TESSA ADAIRA, TERRENCE ####[facility] Xnghrgbpwq788[address] [place], [place] [address]Dr. Chrissy Frazier Sodium [Moles/Vol] 136 mmol/L Normal 136-145 [facility] Comment on above: Performed By: #### C MANA LIPA, TERRENCE ####[facility] Hxwcvsrraf816[address] [place], [place] [address]Dr. Chrissy Frazier Urea nitrogen [Mass/Vol] 15.0 mg/dL Normal 7.0-18.0 [facility] Comment on above: Performed By: #### C MANA LIPA, TERRENCE ####[facility] Qaxhgxrdqt8424[address] [place], [place] [address]Dr. Chrissy Frazier Urea nitrogen/Creatinine [Mass ratio] 10.4 mg/mg Normal [facility] Comment on above: Performed By: #### C MANA LIPA, TERRENCE ####[facility] Educfekpdm0836 [place] [address]Dr. Chrissy Freddie CBC AUTO DIFFon 07-05-2022 BASO # 0.0 103/ul Normal 0.0-0.1 [facility] Comment on above: Performed By: #### C BC ####[facility] Wzlucbvjvk[address] [place], [place] [address]Dr. Chrissy Frazier Basophils/100 WBC (Bld) 0.3 % Normal 0.2-2.0 [facility] Comment on above: Performed By: #### C BC ####[facility] Jwzfafjgco[address] [place], [place] [address]Dr. Chrissy Frazier EO # 0.2 103/ul Normal 0.0-0.7 [facility] Comment on above: Performed By: #### C BC ####[facility] Ofdwcmwcvo1224[address] [place], [place] [address]Dr. Chrissy Frazier Eosinophils/100 WBC (Bld) 1.5 % Normal 0.9-7.0 [facility] Comment on above: Performed By: #### C BC ####[facility] Mfeyerwnpg4560[address] [place], [place] [address]Dr. Tishrowan Frazier Erythrocyte distribution width (RBC) [Ratio] 13.9 % Normal 11.0-15.0 [facility] Comment on above: Performed By: #### C BC ####[facility] Hgmhdiynaz618[address] [place], [place] [address]Dr. Chrissy Frazier Hematocrit (Bld) [Volume fraction] 44.5 % Normal 42.0-54.0 [facility] Comment on above: Performed By: #### C BC ####[facility] Jcoyiwcpci327[address] [place], [place] [address]Dr. Chrissy Frazier Hemoglobin (Bld) [Mass/Vol] 14.8 g/dL Normal 14.0-18.0 [facility] Comment on above: Performed By: #### C BC ####[facility] Dpzvlbmbtx96[address] [place], [place] [address]Dr. Chrissy Frazier IG # 0.05 10e3/ul Critically high 0.00-0.03 [facility] Comment on above: Performed By: #### C BC ####[facility] Mlbonfuxqv7946 [place] [id number]. Chrissy Frazier IG % 0.4 % Normal 0.0-0.5 [facility] Comment on above: Performed By: #### C BC ####[facility] Opcqdgujmt5428 [place] [address]Dr. Chrissy Frazier LYMPH # 3.3 103/ul Normal 1.2-3.8 [facility] Comment on above: Performed By: #### C BC ####[facility] Levzmyiupz9649 [place] [address]Dr. Chrissy Frazier Lymphocytes/100 WBC (Bld) 29.1 % Normal 20.5-60.0 [facility] Comment on above: Performed By: #### C BC ####[facility] Djcfvauyvd8309 [place] [address]Dr. Chrissy Frazier MANUAL DIFF REQ NO Normal [facility] Comment on above: Performed By: #### C BC ####[facility] Czusbsrsjk0766 [place] [id number]. Chrissy Frazier MCH (RBC) [Entitic mass] 28.2 pg Normal 25.9-34.0 [facility] Comment on above: Performed By: #### C BC ####[facility] Mqwbktgzhw2711 [place] [id number]. Chrissy Frazier MCHC (RBC) [Mass/Vol] 33.3 g/dL Normal 29.9-35.2 [facility] Comment on above: Performed By: #### C BC ####[facility] Cumnsyqgur8664 [place] [address]Dr. Chrissy Frazier MCV (RBC) [Entitic vol] 84.9 fL Normal 80.0-94.0 [facility] Comment on above: Performed By: #### C BC ####[facility] Tjcqahczif7958 [place] [address]Dr. Chrissy Freddie MONO # 0.6 103/ul Normal 0.3-0.8 [facility] Comment on above: Performed By: #### C BC ####[facility] Iqoetgpdos7599 [place] [address]Dr. Chrissy Frazier Monocytes/100 WBC (Bld) 5.4 % Normal 1.7-12.0 [facility] Comment on above: Performed By: #### C BC ####[facility] Coowfpeuvu0254 [place] [address]Dr. Chrissy Frazier NEUT # 7.1 103/ul Critically high 1.4-6.5 [facility] Comment on above: Performed By: #### C BC ####[facility] Corjvghxmg4608 [place] [id number]. Chrissy Frazier Neutrophils/100 WBC (Bld) 63.3 % Normal 43.0-75.0 [facility] Comment on above: Performed By: #### C BC ####[facility] Julahrkmbe6867 [place] [address]Dr. Chrissy Frazier Platelet mean volume (Bld) [Entitic vol] 9.9 fL Normal 9.5-13.5 [facility] Comment on above: Performed By: #### C BC ####[facility] Bbajevyqya5439 [place] [address]Dr. Chrissy Freddie PLT 339 103/ul Normal 150-450 [facility] Comment on above: Performed By: #### C BC ####[facility] Jaksitydmn0986 [place] [id number]. Tishrowan Frazier RBC 5.24 106/ul Normal 4.70-6.10 [facility] Comment on above: Performed By: #### C BC ####[facility] Bihmfixaia[address] [place] [id number]. Chrissy Frazier WBC 11.2 103/ul Critically high 4.0-11.0 [facility] Comment on above: Performed By: #### C BC ####[facility] Cuhsrygcms[address] [place] [address]Dr. Chrissy Frazier PROF 14(COMP METB)on 022 Albumin [Mass/Vol] 3.8 g/dL Normal 3.4-5.0 [facility] Comment on above: Performed By: #### C MP ####[facility] Qvzdawrmzg2635 [place] [id number]. Chrissy Freddie Albumin/Globulin [Mass ratio] 1.1 {ratio} Normal [facility] Comment on above: Performed By: #### C MP ####[facility] Meyjlmvgxw9753 [place] [id number]. Chrissy Freddie ALP [Catalytic activity/Vol] 67 U/L Normal 46-116 [facility] Comment on above: Performed By: #### C MP ####[facility] Vdareqgtru1099 [place] [address]Dr. Chrissy Freddie ALT [Catalytic activity/Vol] 75 U/L Critically high 16-63 [facility] Comment on above: Performed By: #### C MP ####[facility] Ciqnfimriq3995 [place] [address]Dr. Chrissy Frazier Anion gap [Moles/Vol] 14.3 mmol/L Normal [facility] Comment on above: Performed By: #### C MP ####[facility] Upsjqmdmlq9159 [place] [address]Dr. Chrissy Freddie AST [Catalytic activity/Vol] 40 U/L Critically high 15-37 [facility] Comment on above: Performed By: #### C MP ####[facility] Hhoerodfol5235 [place] [address]Dr. Chrissy Frazier Bilirubin [Mass/Vol] 0.9 mg/dL Normal 0.2-1.0 [facility] Comment on above: Performed By: #### C MP ####[facility] Eddoqpvigo6103 [place] [id number]. Chrissy Frazier Calcium [Mass/Vol] 8.4 mg/dL Critically low 8.5-10.1 [facility] Comment on above: Performed By: #### C MP ####[facility] Eajdrktmyg6383 [place] [address]Dr. Chrissy Frazier Chloride [Moles/Vol] 104 mmol/L Normal 98-107 [facility] Comment on above: Performed By: #### C MP ####[facility] Ygqkbnmrgd3294 [place] [id number]. Chrissy Frazier CO2 [Moles/Vol] 24.1 mmol/L Normal 21.0-32.0 [facility] Comment on above: Performed By: #### C MP ####[facility] Fgdezyzgbn4077 [place] [id number]. Chrissy Frazier Creatinine [Mass/Vol] 1.11 mg/dL Normal 0.70-1.30 [facility] Comment on above: Performed By: #### C MP ####[facility] Yuoxhnsagp5203 [place] [id number]. Chrissy Frazier EGFR-AF IRANIAN >60 Normal >=60 [facility] Comment on above: Performed By: #### C MP ####[facility] Perecwatox5399 [place] [address]Dr. Chrissy Frazier EGFR-NON AF IRANIAN >60 Normal >=60 [facility] Comment on above: Performed By: #### C MP ####[facility] Jqixthjead225[address] [place], [place] [address]Dr. Chrissy Frazier Globulin (S) [Mass/Vol] 3.6 g/dL Normal [facility] Comment on above: Performed By: #### C MP ####[facility] Fnosbkjowt232[address] [place], [place] [address]Dr. Chrissy Frazier Glucose [Mass/Vol] 89 mg/dL Normal 74-106 [facility] Comment on above: Performed By: #### C MP ####[facility] Yyzzcuqneq0359 [place] [address]Dr. Chrissy Frazier Potassium [Moles/Vol] 3.4 mmol/L Critically low 3.5-5.1 [facility] Comment on above: Performed By: #### C MP ####[facility] Gqzatiyfbv338[address] [place], [place] [address]Dr. Chrissy Freddie Protein [Mass/Vol] 7.4 g/dL Normal 6.4-8.2 [facility] Comment on above: Performed By: #### C MP ####[facility] Oigztrrrfz60[address] [place], [place] [address]Dr. Chrissy Frazier Sodium [Moles/Vol] 139 mmol/L Normal 136-145 [facility] Comment on above: Performed By: #### C MP ####[facility] Pwjduaytsb659[address] [place], [place] [address]Dr. Chrissy Frazier Urea nitrogen [Mass/Vol] 10.0 mg/dL Normal 7.0-18.0 [facility] Comment on above: Performed By: #### C MP ####[facility] Nyapgcokaq6637[address] [place], [place] [address]Dr. Chrissy Frazier Urea nitrogen/Creatinine [Mass ratio] 9.0 mg/mg Normal [facility] Comment on above: Performed By: #### C MP ####[facility] Iwyqragycy488[address] [place], [place] [address]Dr. Chrissy Frazier CBC AUTO DIFFon 07-04-2022 BASO # 0.0 103/ul Normal 0.0-0.1 [facility] Comment on above: Performed By: #### C BC ####[facility] Zhafjkwqds248[address] [place], [place] [address]Dr. Chrissy Freddie Basophils/100 WBC (Bld) 0.2 % Normal 0.2-2.0 [facility] Comment on above: Performed By: #### C BC ####[facility] Gpugngngmy8548[address] [place], [place] [address]Dr. Chrissy Frazier EO # 0.0 103/ul Normal 0.0-0.7 [facility] Comment on above: Performed By: #### C BC ####[facility] Pyuraevhfh1450[address] [place], [place] [address]Dr. Chrissy Freddie Eosinophils/100 WBC (Bld) 0.3 % Critically low 0.9-7.0 [facility] Comment on above: Performed By: #### C BC ####[facility] Lruexlzhdq295[address] [place], [place] [address]Dr. Chrissy Frazier Erythrocyte distribution width (RBC) [Ratio] 14.0 % Normal 11.0-15.0 [facility] Comment on above: Performed By: #### C BC ####[facility] Tvvevtlwbi3001 [place] [address]Dr. Chrissy Frazier Hematocrit (Bld) [Volume fraction] 43.2 % Normal 42.0-54.0 [facility] Comment on above: Performed By: #### C BC ####[facility] Ustryuriqn1320 [place] [address]Dr. Chrissy Frazier Hemoglobin (Bld) [Mass/Vol] 14.6 g/dL Normal 14.0-18.0 [facility] Comment on above: Performed By: #### C BC ####[facility] Vdgfgmylcp6917 [place] [address]Dr. Tishrowan Freddie IG # 0.11 10e3/ul Critically high 0.00-0.03 [facility] Comment on above: Performed By: #### C BC ####[facility] Wyndwnakru9253 [place] [address]Dr. Chrissy Frazier IG % 0.8 % Critically high 0.0-0.5 [facility] Comment on above: Performed By: #### C BC ####[facility] Mvlbvmnyfj6645 [place] [address]Dr. Chrissy Frazier LYMPH # 2.6 103/ul Normal 1.2-3.8 [facility] Comment on above: Performed By: #### C BC ####[facility] Sdkbvnzpdj8983 [place] [address]Dr. Tishrowan Frazier Lymphocytes/100 WBC (Bld) 18.3 % Critically low 20.5-60.0 [facility] Comment on above: Performed By: #### C BC ####[facility] Gidmctybpk3489 [place] [address]Dr. Tishrowan Frazier MANUAL DIFF REQ NO Normal [facility] Comment on above: Performed By: #### C BC ####[facility] Cmwhfkrdmh[address] [place], [place] [address]Dr. Chrissy Frazier MCH (RBC) [Entitic mass] 28.1 pg Normal 25.9-34.0 [facility] Comment on above: Performed By: #### C BC ####[facility] Gobgpzqdpd5806 [place] [id number]. Chrissy Frazier MCHC (RBC) [Mass/Vol] 33.8 g/dL Normal 29.9-35.2 [facility] Comment on above: Performed By: #### C BC ####[facility] Hgxrpllqnk7154 [place] [id number]. Chrissy Frazier MCV (RBC) [Entitic vol] 83.2 fL Normal 80.0-94.0 [facility] Comment on above: Performed By: #### C BC ####[facility] Zpyxmbdtoa5966 [place] [id number]. Chrissy Frazier MONO # 0.7 103/ul Normal 0.3-0.8 [facility] Comment on above: Performed By: #### C BC ####[facility] Besnytnqrs6131 [place] [address]Dr. Tishrowan Frazier Monocytes/100 WBC (Bld) 5.3 % Normal 1.7-12.0 [facility] Comment on above: Performed By: #### C BC ####[facility] Ovwvkgbmid8693 [place] [id number]. Chrissy Frazier NEUT # 10.5 103/ul Critically high 1.4-6.5 [facility] Comment on above: Performed By: #### C BC ####[facility] Ikazbykgfo0753 [place] [id number]. Chrissy Frazier Neutrophils/100 WBC (Bld) 75.1 % Critically high 43.0-75.0 [facility] Comment on above: Performed By: #### C BC ####[facility] Pmnyfkdawo1267 [place] [id number]. Chrissy Frazier Platelet mean volume (Bld) [Entitic vol] 10.6 fL Normal 9.5-13.5 [facility] Comment on above: Performed By: #### C BC ####[facility] Jwuabxciuh3318 [place] [id number]. Chrissy Freddie PLT 309 103/ul Normal 150-450 [facility] Comment on above: Performed By: #### C BC ####[facility] Okoxlgediq0588 [place] [address]Dr. Chrissy Frazier RBC 5.19 106/ul Normal 4.70-6.10 [facility] Comment on above: Performed By: #### C BC ####[facility] Lgemwiqoit6013 [place] [address]Dr. Chrissy Frazier WBC 14.0 103/ul Critically high 4.0-11.0 [facility] Comment on above: Performed By: #### C BC ####[facility] Ytevgddlsu6484 [place] [address]Dr. Chrissy Frazier PROF 14(COMP METB)on 022 Albumin [Mass/Vol] 4.0 g/dL Normal 3.4-5.0 [facility] Comment on above: Performed By: #### C MP ####[facility] Ifovnatwdo306[address] [place], [place] [address]Dr. Chrissy Frazier Albumin/Globulin [Mass ratio] 1.1 {ratio} Normal [facility] Comment on above: Performed By: #### C MP ####[facility] Jpczilejlp856[address] [place], [place] [address]Dr. Chrissy Frazier ALP [Catalytic activity/Vol] 67 U/L Normal 46-116 [facility] Comment on above: Performed By: #### C MP ####[facility] Eauhhzsjxu453[address] [place], [place] [address]Dr. Chrissy Frazier ALT [Catalytic activity/Vol] 40 U/L Normal 16-63 [facility] Comment on above: Performed By: #### C MP ####[facility] Dipobfsjdp366[address] [place], [place] [address]Dr. Chrissy Frazier Anion gap [Moles/Vol] 17.7 mmol/L Normal [facility] Comment on above: Performed By: #### C MP ####[facility] Aqmqtcmtqo8[address] [place], [place] [address]Dr. Chrissy Frazier AST [Catalytic activity/Vol] 27 U/L Normal 15-37 [facility] Comment on above: Performed By: #### C MP ####[facility] Typzreowsq1633[address] [place], [place] [address]Dr. Chrissy Frazier Bilirubin [Mass/Vol] 0.8 mg/dL Normal 0.2-1.0 [facility] Comment on above: Performed By: #### C MP ####[facility] Ynimjzhell0312 [place] [address]Dr. Chrissy Frazier Calcium [Mass/Vol] 8.8 mg/dL Normal 8.5-10.1 [facility] Comment on above: Performed By: #### C MP ####[facility] Srqupgurcs9059 [place] [address]Dr. Chrissy Frazier Chloride [Moles/Vol] 105 mmol/L Normal 98-107 [facility] Comment on above: Performed By: #### C MP ####[facility] Ztgnuwdsov1615 [place] [address]Dr. Chrissy Frazier CO2 [Moles/Vol] 16.5 mmol/L Critically low 21.0-32.0 [facility] Comment on above: Performed By: #### C MP ####[facility] Oioraoqxck466[address] [place], [place] [address]Dr. Chrissy Frazier Creatinine [Mass/Vol] 1.02 mg/dL Normal 0.70-1.30 [facility] Comment on above: Performed By: #### C MP ####[facility] Etrkcgijud634[address] [place], [place] [address]Dr. Chrissy Frazier EGFR-AF IRANIAN >60 Normal >=60 [facility] Comment on above: Performed By: #### C MP ####[facility] Xzkicgzhyq4378 [place] [address]Dr. Chrissy Freddie EGFR-NON AF IRANIAN >60 Normal >=60 [facility] Comment on above: Performed By: #### C MP ####[facility] Wjmthspzrs8[address] [place], [place] [address]Dr. Tishrowan Freddie Globulin (S) [Mass/Vol] 3.7 g/dL Normal [facility] Comment on above: Performed By: #### C MP ####[facility] Evtpcgwbbs9417 [place] [address]Dr. Tishrowan Frazier Glucose [Mass/Vol] 106 mg/dL Normal 74-106 [facility] Comment on above: Performed By: #### C MP ####[facility] Cyxiqamczv0875 [place] [address]Dr. Chrissy Freddie Potassium [Moles/Vol] 3.2 mmol/L Critically low 3.5-5.1 [facility] Comment on above: Performed By: #### C MP ####[facility] Szpewdxcct777[address] [place], [place] [address]Dr. Chrissy Freddie Protein [Mass/Vol] 7.7 g/dL Normal 6.4-8.2 [facility] Comment on above: Performed By: #### C MP ####[facility] Iwzadyrhkc7826[address] [place], [place] [address]Dr. Chrissy Frazier Sodium [Moles/Vol] 136 mmol/L Normal 136-145 [facility] Comment on above: Performed By: #### C MP ####[facility] Wqhgrcimbr887[address] [place], [place] [address]Dr. Chrissy Freddie Urea nitrogen [Mass/Vol] 10.0 mg/dL Normal 7.0-18.0 [facility] Comment on above: Performed By: #### C MP ####[facility] Ybdappjbab213[address] [place], [place] [address]Dr. Tishrowan Freddie Urea nitrogen/Creatinine [Mass ratio] 9.8 mg/mg Normal [facility] Comment on above: Performed By: #### C MP ####[facility] Gbzajingcy923[address] [place], [place] [address]Dr. Chrissy Freddie CBC AUTO DIFFon 07-03-2022 BASO # 0.1 103/ul Normal 0.0-0.1 [facility] Comment on above: Performed By: #### C BC ####[facility] Rdcstiafkm295[address] [place], [place] [address]Dr. Chrissy Frazier Basophils/100 WBC (Bld) 0.5 % Normal 0.2-2.0 [facility] Comment on above: Performed By: #### C BC ####[facility] Qqlzmyggwu924[address] [place], [place] [address]Dr. Chrissy Frazier EO # 0.1 103/ul Normal 0.0-0.7 [facility] Comment on above: Performed By: #### C BC ####[facility] Hojxgmmlxa8740 [place] [address]Dr. Chrissy Frazier Eosinophils/100 WBC (Bld) 1.3 % Normal 0.9-7.0 [facility] Comment on above: Performed By: #### C BC ####[facility] Tydrpsilsn3689 [place] [address]Dr. Chrissy Frazier Erythrocyte distribution width (RBC) [Ratio] 14.2 % Normal 11.0-15.0 [facility] Comment on above: Performed By: #### C BC ####[facility] Mmvnvobjhp735[address] [place], [place] [address]Dr. Chrissy Frazier Hematocrit (Bld) [Volume fraction] 41.7 % Critically low 42.0-54.0 [facility] Comment on above: Performed By: #### C BC ####[facility] Qumbqnwxom855[address] [place], [place] [address]Dr. Chrissy Frazier Hemoglobin (Bld) [Mass/Vol] 13.6 g/dL Critically low 14.0-18.0 [facility] Comment on above: Performed By: #### C BC ####[facility] Vdjbzzzcod908[address] [place], [place] [address]Dr. Chrissy Frazier IG # 0.04 10e3/ul Critically high 0.00-0.03 [facility] Comment on above: Performed By: #### C BC ####[facility] Yphvjuiels8233 [place] [address]Dr. Chrissy Frazier IG % 0.4 % Normal 0.0-0.5 [facility] Comment on above: Performed By: #### C BC ####[facility] Keuvqdziic739[address] [place], [place] [address]Dr. Chrissy Frazier LYMPH # 3.5 103/ul Normal 1.2-3.8 [facility] Comment on above: Performed By: #### C BC ####[facility] Yehhazkwkr13[address] [place], [place] [address]Dr. Chrissy Frazier Lymphocytes/100 WBC (Bld) 33.5 % Normal 20.5-60.0 [facility] Comment on above: Performed By: #### C BC ####[facility] Qsvjlwvjcd4511 [place] [address]Dr. Chrissy Frazier MANUAL DIFF REQ NO Normal [facility] Comment on above: Performed By: #### C BC ####[facility] Kqvzcipljt7527 [place] [address]Dr. Chrissy Frazier MCH (RBC) [Entitic mass] 27.9 pg Normal 25.9-34.0 [facility] Comment on above: Performed By: #### C BC ####[facility] Jqtflyytkr8334 [place] [address]Dr. Chrissy Frazier MCHC (RBC) [Mass/Vol] 32.6 g/dL Normal 29.9-35.2 [facility] Comment on above: Performed By: #### C BC ####[facility] Yrghtmanxo9107 [place] [address]Dr. Chrissy Frazier MCV (RBC) [Entitic vol] 85.6 fL Normal 80.0-94.0 [facility] Comment on above: Performed By: #### C BC ####[facility] Bippgnackx1796 [place] [address]Dr. Chrissy Frazier MONO # 0.7 103/ul Normal 0.3-0.8 [facility] Comment on above: Performed By: #### C BC ####[facility] Lsnvojrszu9441 [place] [address]Dr. Chrissy Frazier Monocytes/100 WBC (Bld) 6.5 % Normal 1.7-12.0 [facility] Comment on above: Performed By: #### C BC ####[facility] Iizunzyhma4395 [place] [address]DrNancy Frazier NEUT # 6.1 103/ul Normal 1.4-6.5 [facility] Comment on above: Performed By: #### C BC ####[facility] Osdfnrjegm8590[address] [place], [place] [address]Dr. Chrissy Frazier Neutrophils/100 WBC (Bld) 57.8 % Normal 43.0-75.0 [facility] Comment on above: Performed By: #### C BC ####[facility] Rshxkdduin3846 [place] [address]Dr. Tishrowan Freddie Platelet mean volume (Bld) [Entitic vol] 10.4 fL Normal 9.5-13.5 [facility] Comment on above: Performed By: #### C BC ####[facility] Zxmyfuefpa1507 [place] [address]DrNancy Frazier PLT 288 103/ul Normal 150-450 [facility] Comment on above: Performed By: #### C BC ####[facility] Khppbelmtc5016 [place] [address]DrNancy Frazier RBC 4.87 106/ul Normal 4.70-6.10 [facility] Comment on above: Performed By: #### C BC ####[facility] Jjazhjprwv[address] [place], [place] [address]DrNancy Frazier WBC 10.5 103/ul Normal 4.0-11.0 [facility] Comment on above: Performed By: #### C BC ####[facility] Mbkheillxn315[address] [place], [place] [address]DrNancy Frazier PROF 14(COMP METB)on 022 Albumin [Mass/Vol] 3.6 g/dL Normal 3.4-5.0 [facility] Comment on above: Performed By: #### C MP ####[facility] Zxbdkwqczh3775 [place] [address]DrNancy Frazier Albumin/Globulin [Mass ratio] 1.1 {ratio} Normal [facility] Comment on above: Performed By: #### C MP ####[facility] Rctlnaxtla3416 [place] [address]DrNancy Frazier ALP [Catalytic activity/Vol] 58 U/L Normal 46-116 [facility] Comment on above: Performed By: #### C MP ####[facility] Dictkkntqo564[address] [place], [place] [address]Dr. Yirowan Frazier ALT [Catalytic activity/Vol] 30 U/L Normal 16-63 [facility] Comment on above: Performed By: #### C MP ####[facility] Xmornbztjl2095 [place] [address]Dr. Tishrowan Freddie Anion gap [Moles/Vol] 14.5 mmol/L Normal [facility] Comment on above: Performed By: #### C MP ####[facility] Fvtgmgfdyh3034[address] [place], [place] [address]Dr. Chrissy Freddie AST [Catalytic activity/Vol] 17 U/L Normal 15-37 [facility] Comment on above: Performed By: #### C MP ####[facility] Unomeanhbm147[address] [place], [place] [address]Dr. Chrissy Frazier Bilirubin [Mass/Vol] 0.6 mg/dL Normal 0.2-1.0 [facility] Comment on above: Performed By: #### C MP ####[facility] Dsqgwguqis215[address] [place], [place] [address]Dr. Chrissy Frazier Calcium [Mass/Vol] 8.4 mg/dL Critically low 8.5-10.1 [facility] Comment on above: Performed By: #### C MP ####[facility] Nissrwjuyk4025[address] [place], [place] [address]Dr. Chrissy Frazier Chloride [Moles/Vol] 106 mmol/L Normal 98-107 [facility] Comment on above: Performed By: #### C MP ####[facility] Kvkeokvnqe399[address] [place], [place] [address]Dr. Chrissy Frazier CO2 [Moles/Vol] 22.6 mmol/L Normal 21.0-32.0 [facility] Comment on above: Performed By: #### C MP ####[facility] Iyyzcvvgue800[address] [place], [place] [address]Dr. Chrissy Frazier Creatinine [Mass/Vol] 1.08 mg/dL Normal 0.70-1.30 [facility] Comment on above: Performed By: #### C MP ####[facility] Yegsnetmge5926[address] [place], [place] [address]Dr. Chrissy Frazier EGFR-AF IRANIAN >60 Normal >=60 [facility] Comment on above: Performed By: #### C MP ####[facility] Jsnzubvztk3984 [place], [place] [address]Bo. Chrissy Frazier EGFR-NON AF IRANIAN >60 Normal >=60 [facility] Comment on above: Performed By: #### C MP ####[facility] Tbmzqopdsu6407 [place], [place] [address]Ze. Chrissy Frazier Globulin (S) [Mass/Vol] 3.3 g/dL Normal [facility] Comment on above: Performed By: #### C MP ####[facility] Lgxylzhjbn6583 [place] [id number]. Chrissy Frazier Glucose [Mass/Vol] 94 mg/dL Normal 74-106 [facility] Comment on above: Performed By: #### C MP ####[facility] Xydwnrxyov0320 [place] [id number]. Chrissy Frazier Potassium [Moles/Vol] 3.1 mmol/L Critically low 3.5-5.1 [facility] Comment on above: Performed By: #### C MP ####[facility] Ncuqghrgny3245 [place] [id number]. Chrissy Frazier Protein [Mass/Vol] 6.9 g/dL Normal 6.4-8.2 [facility] Comment on above: Performed By: #### C MP ####[facility] Bnsoumoxcd5514 [place] [id number]. Chrissy Frazier Sodium [Moles/Vol] 140 mmol/L Normal 136-145 [facility] Comment on above: Performed By: #### C MP ####[facility] Nlwxnpwgxl2623 [place] [id number]. Chrissy Frazier Urea nitrogen [Mass/Vol] 10.0 mg/dL Normal 7.0-18.0 [facility] Comment on above: Performed By: #### C MP ####[facility] Hliumrnqpo8381 [place] [id number]. Chrissy Frazier Urea nitrogen/Creatinine [Mass ratio] 9.3 mg/mg Normal [facility] Comment on above: Performed By: #### C MP ####[facility] Fsxfizexaf458[address] [place], [place] [address]Dr. Chrissy Frazier CBC AUTO DIFFon 07-02-2022 BASO # 0.0 103/ul Normal 0.0-0.1 [facility] Comment on above: Performed By: #### C BC ####[facility] Ytomztgebe369[address] [place], [place] [address]Dr. Chrissy Frazier Basophils/100 WBC (Bld) 0.2 % Normal 0.2-2.0 [facility] Comment on above: Performed By: #### C BC ####[facility] Eldayktosi3744[address] [place], [place] [address]Dr. Chrissy Frazier EO # 0.0 103/ul Normal 0.0-0.7 [facility] Comment on above: Performed By: #### C BC ####[facility] Alcujfxtai2101[address] [place], [place] [address]Dr. Chrissy Frazier Eosinophils/100 WBC (Bld) 0.0 % Critically low 0.9-7.0 [facility] Comment on above: Performed By: #### C BC ####[facility] Nobzdfriki9712[address] [place], [place] [address]Dr. Chrissy Frazier Erythrocyte distribution width (RBC) [Ratio] 14.2 % Normal 11.0-15.0 [facility] Comment on above: Performed By: #### C BC ####[facility] Mokypfwced914[address] [place], [place] [address]Dr. Chrissy Frazier Hematocrit (Bld) [Volume fraction] 46.2 % Normal 42.0-54.0 [facility] Comment on above: Performed By: #### C BC ####[facility] Fipztfxjpo04[address] [place], [place] [address]Dr. Chrissy Frazier Hemoglobin (Bld) [Mass/Vol] 15.2 g/dL Normal 14.0-18.0 [facility] Comment on above: Performed By: #### C BC ####[facility] Ltamlpubxk518[address] [place], [place] [address]Dr. Chrissy Frazier IG # 0.07 10e3/ul Critically high 0.00-0.03 [facility] Comment on above: Performed By: #### C BC ####[facility] Clkphcymcv0535 [place] [id number] Chrissy Freddie IG % 0.4 % Normal 0.0-0.5 [facility] Comment on above: Performed By: #### C BC ####[facility] Y[address]xhbtgfo[address] [place] [address]DrNancy Chrissy Freddie LYMPH # 2.8 103/ul Normal 1.2-3.8 [facility] Comment on above: Performed By: #### C BC ####[facility] Cgciakakyb[address] [place], [place] [address]DrNancy Chrissy Freddie Lymphocytes/100 WBC (Bld) 16.7 % Critically low 20.5-60.0 [facility] Comment on above: Performed By: #### C BC ####[facility] Wvbdevoxfx937[address] [place], [place] [address]DrNancy Chrissy Freddie MANUAL DIFF REQ NO Normal [facility] Comment on above: Performed By: #### C BC ####[facility] Tukwsodike[address] [place], [place] [address]DrNancy Chrissy Freddie MCH (RBC) [Entitic mass] 28.3 pg Normal 25.9-34.0 [facility] Comment on above: Performed By: #### C BC ####[facility] Rkaeryfyes72[address] [place] [address]DrNancy Chrissy Freddie MCHC (RBC) [Mass/Vol] 32.9 g/dL Normal 29.9-35.2 [facility] Comment on above: Performed By: #### C BC ####[facility] Wcmrfoxdbn45[address] [place], [place] [address]DrNancy Winstonrowan Freddie MCV (RBC) [Entitic vol] 86.0 fL Normal 80.0-94.0 [facility] Comment on above: Performed By: #### C BC ####[facility] Etgodqerir70[address] [place], [place] [address]DrNancy Frazier MONO # 0.9 103/ul Critically high 0.3-0.8 [facility] Comment on above: Performed By: #### C BC ####[facility] Acrxhvrbuz90[address] [place] [id number]. Chrissy Frazier Monocytes/100 WBC (Bld) 5.1 % Normal 1.7-12.0 [facility] Comment on above: Performed By: #### C BC ####[facility] Zetisenwhs4970 [place] [id number]. Chrissy Frazier NEUT # 13.2 103/ul Critically high 1.4-6.5 [facility] Comment on above: Performed By: #### C BC ####[facility] Rgdeskworm70[address] [place] [address]Dr. Chrissy Frazier Neutrophils/100 WBC (Bld) 77.6 % Critically high 43.0-75.0 [facility] Comment on above: Performed By: #### C BC ####[facility] Ndaqvyffsj35[address] [place], [place] [address]Dr. Chrissy Frazier Platelet mean volume (Bld) [Entitic vol] 11.6 fL Normal 9.5-13.5 [facility] Comment on above: Performed By: #### C BC ####[facility] Poyvpxpaoz[address] [place] [address]Dr. Chrissy Frazier PLT 317 103/ul Normal 150-450 [facility] Comment on above: Performed By: #### C BC ####[facility] Jaebncobfl5[address] [place], [place] [id number]. Chrissy Frazier RBC 5.37 106/ul Normal 4.70-6.10 [facility] Comment on above: Performed By: #### C BC ####[facility] Tnntvggqyp7956 [place] [id number]. Chrissy Frazier WBC 17.1 103/ul Critically high 4.0-11.0 [facility] Comment on above: Performed By: #### C BC ####[facility] Zwiibikote9[address] [place] [id number]. Chrissy Frazier CT ABD/PELV W MARGOTHon 07-02-[address] ABD/PELV W CON Normal [facility] H PYLORI ANTIBODY IGGon 06-21 H. PYLORI IGG ABS 0.13 Index Value Normal 0.00-0.79 [facility] Comment on above: Result Comment: Nega tive <0.80 Equivocal 0.80 - 0.89 Positive >0.89 Performed By: #### H PYLLC ####[facility] Uguixfccrx59[address] [place] [address]Dr. Chrissy Frazier PROF 14(COMP METB)on 022 Albumin [Mass/Vol] 3.8 g/dL Normal 3.4-5.0 [facility] Comment on above: Performed By: #### C MP ####[facility] Vatevqxsdk2813[address] [place], [place] [address]Dr. Chrissy Frazier Albumin/Globulin [Mass ratio] 1.0 {ratio} Normal [facility] Comment on above: Performed By: #### C MP ####[facility] Buruekjghr1600[address] [place], [place] [address]Dr. Chrissy Frazier ALP [Catalytic activity/Vol] 68 U/L Normal 46-116 [facility] Comment on above: Performed By: #### C MP ####[facility] Bimybtyeqe3770[address] [place], [place] [address]Dr. Chrissy Frazier ALT [Catalytic activity/Vol] 34 U/L Normal 16-63 [facility] Comment on above: Performed By: #### C MP ####[facility] Sdrxqgmnph3730[address] [place], [place] [address]Dr. Chrissy Frazier Anion gap [Moles/Vol] 17.9 mmol/L Normal [facility] Comment on above: Performed By: #### C MP ####[facility] Yjsjczjwpx254[address] [place], [place] [address]Dr. Chrissy Frazier AST [Catalytic activity/Vol] 24 U/L Normal 15-37 [facility] Comment on above: Performed By: #### C MP ####[facility] Ygtxopvrvh28[address] [place], [place] [address]Dr. Chrissy Frazier Bilirubin [Mass/Vol] 0.6 mg/dL Normal 0.2-1.0 [facility] Comment on above: Performed By: #### C MP ####[facility] Bskwiylego95[address] [place] [address]Dr. Chrissy Frazier Calcium [Mass/Vol] 8.8 mg/dL Normal 8.5-10.1 [facility] Comment on above: Performed By: #### C MP ####[facility] Gaphrmdomo05[address] [place] [address]Dr. Chrissy Frazier Chloride [Moles/Vol] 105 mmol/L Normal 98-107 [facility] Comment on above: Performed By: #### C MP ####[facility] Rhotzidbdq920[address] [place], [place] [address]Dr. Chrissy Frazier CO2 [Moles/Vol] 18.8 mmol/L Critically low 21.0-32.0 [facility] Comment on above: Performed By: #### C MP ####[facility] Znhvacwkfa273[address] [place], [place] [address]Dr. Chrissy Frazier Creatinine [Mass/Vol] 1.15 mg/dL Normal 0.70-1.30 [facility] Comment on above: Performed By: #### C MP ####[facility] Zgfswqzoot167[address] [place], [place] [address]Dr. Chrissy Frazier EGFR-AF IRANIAN >60 Normal >=60 [facility] Comment on above: Performed By: #### C MP ####[facility] Pygeoznoyb3434[address] [place], [place] [address]Dr. Chrissy Freddie EGFR-NON AF IRANIAN >60 Normal >=60 [facility] Comment on above: Performed By: #### C MP ####[facility] Dpvicnurgz7770[address] [place], [place] [address]Dr. Chrissy Freddie Globulin (S) [Mass/Vol] 3.9 g/dL Normal [facility] Comment on above: Performed By: #### C MP ####[facility] Gbowofrfor775[address] [place], [place] [address]Dr. Chrissy Frazier Glucose [Mass/Vol] 124 mg/dL Critically high 74-106 [facility] Comment on above: Performed By: #### C MP ####[facility] Ktyulbcnud80[address] [place] [address]Dr. Chrissy Frazier Potassium [Moles/Vol] 3.7 mmol/L Normal 3.5-5.1 [facility] Comment on above: Performed By: #### C MP ####[facility] Dfowrjddfe47[address] [place] [address]Dr. Chrissy Freddie Protein [Mass/Vol] 7.7 g/dL Normal 6.4-8.2 [facility] Comment on above: Performed By: #### C MP ####[facility] Veyndmtscs1830[address] [place], [place] [address]Dr. Tishrowan Frazier Sodium [Moles/Vol] 138 mmol/L Normal 136-145 [facility] Comment on above: Performed By: #### C MP ####[facility] Kjlqcvuawk5728[address] [place], [place] [address]Dr. Tishrowan Frazier Urea nitrogen [Mass/Vol] 9.0 mg/dL Normal 7.0-18.0 [facility] Comment on above: Performed By: #### C MP ####[facility] Ftclcxvepx4614[address] [place], [place] [address]Dr. Chrissy Freddie Urea nitrogen/Creatinine [Mass ratio] 7.8 mg/mg Normal [facility] Comment on above: Performed By: #### C MP ####[facility] Qzvzorwppu422[address] [place], [place] [address]Dr. Chrissy Freddie AMMONIAon 07-01-2022 Ammonia (P) [Moles/Vol] 14 umol/L Normal 11-32 [facility] Comment on above: Performed By: #### A MM ####[facility] Jhefyprrop9822[address] [place], [place] [address]Dr. Tishrowan Frazier AMYLASEon 07-01-2022 Amylase [Catalytic activity/Vol] 32 U/L Normal 25-115 [facility] Comment on above: Performed By: #### A MY, PHOS, CMP, LIPA ####[facility] Nkkcipymio[address] [place] [address]Dr. Tishrowan Frazier CBC AUTO DIFFon 07-01-2022 BASO # 0.1 103/ul Normal 0.0-0.1 [facility] Comment on above: Performed By: #### C BC ####[facility] Fdwqurrmis5[address] [place] [address]Dr. Chrissy Frazier Basophils/100 WBC (Bld) 0.4 % Normal 0.2-2.0 [facility] Comment on above: Performed By: #### C BC ####[facility] Xsnbmlqykp422[address] [place], [place] [address]Dr. Chrissy Frazier EO # 0.2 103/ul Normal 0.0-0.7 [facility] Comment on above: Performed By: #### C BC ####[facility] Aakndcgasw1099[address] [place], [place] [address]Dr. Tishrowan Freddie Eosinophils/100 WBC (Bld) 0.9 % Normal 0.9-7.0 [facility] Comment on above: Performed By: #### C BC ####[facility] Pykplvvckf154[address] [place], [place] [address]Dr. Chrissy Frazier Erythrocyte distribution width (RBC) [Ratio] 13.8 % Normal 11.0-15.0 [facility] Comment on above: Performed By: #### C BC ####[facility] Awtqwwwqjo640[address] [place], [place] [address]Dr. Tishrowan Frazier Hematocrit (Bld) [Volume fraction] 46.3 % Normal 42.0-54.0 [facility] Comment on above: Performed By: #### C BC ####[facility] Vmteqdpgmk268[address] [place], [place] [address]Dr. Tishrowan Frazier Hemoglobin (Bld) [Mass/Vol] 15.4 g/dL Normal 14.0-18.0 [facility] Comment on above: Performed By: #### C BC ####[facility] Mlfsqbtmhk8080[address] [place], [place] [address]Dr. Chrissy Frazier IG # 0.05 10e3/ul Critically high 0.00-0.03 [facility] Comment on above: Performed By: #### C BC ####[facility] Hqsrgdywps65[address] [place] [address]Dr. Chrissy Frazier IG % 0.3 % Normal 0.0-0.5 [facility] Comment on above: Performed By: #### C BC ####[facility] Koegruxgbk510[address] [place], [place] [address]Dr. Chrissy Frazier LYMPH # 2.0 103/ul Normal 1.2-3.8 [facility] Comment on above: Performed By: #### C BC ####[facility] Uiyitmmyai85299[address] [place], [place] [address]Dr. Chrissy Frazier Lymphocytes/100 WBC (Bld) 12.9 % Critically low 20.5-60.0 [facility] Comment on above: Performed By: #### C BC ####[facility] Yfukoumrvw415[address] [place], [place] [address]DrNancy Frazier MANUAL DIFF REQ NO Normal [facility] Comment on above: Performed By: #### C BC ####[facility] Rggmbdlmlx708[address] [place], [place] [address]Dr. Tishrowan Frazier MCH (RBC) [Entitic mass] 28.6 pg Normal 25.9-34.0 [facility] Comment on above: Performed By: #### C BC ####[facility] Xmtqykeplu3545[address] [place], [place] [address]Dr. Chrissy Freddie MCHC (RBC) [Mass/Vol] 33.3 g/dL Normal 29.9-35.2 [facility] Comment on above: Performed By: #### C BC ####[facility] Gnumbnlqeb818[address] [place], [place] [address]DrNancy Frazier MCV (RBC) [Entitic vol] 86.1 fL Normal 80.0-94.0 [facility] Comment on above: Performed By: #### C BC ####[facility] Ncksrfdfuu353[address] [place], [place] [address]DrNancy Frazier MONO # 0.5 103/ul Normal 0.3-0.8 [facility] Comment on above: Performed By: #### C BC ####[facility] Omyunpxplf804[address] [place], [place] [address]Dr. Chrissy Frazier Monocytes/100 WBC (Bld) 3.0 % Normal 1.7-12.0 [facility] Comment on above: Performed By: #### C BC ####[facility] Lbcodnafnv2746 [place] [address]Dr. Chrissy Frazier NEUT # 13.0 103/ul Critically high 1.4-6.5 [facility] Comment on above: Performed By: #### C BC ####[facility] Wjwxgwqjkl2395 [place] [address]Dr. Chrissy Frazier Neutrophils/100 WBC (Bld) 82.5 % Critically high 43.0-75.0 [facility] Comment on above: Performed By: #### C BC ####[facility] Rnvuknhjai527[address] [place], [place] [address]Dr. Chrissy Frazier Platelet mean volume (Bld) [Entitic vol] 10.0 fL Normal 9.5-13.5 [facility] Comment on above: Performed By: #### C BC ####[facility] Cdxhzjpmdt830[address] [place], [place] [address]Dr. Chrissy Frazier PLT 370 103/ul Normal 150-450 [facility] Comment on above: Performed By: #### C BC ####[facility] Ruigiuxpzu7938[address] [place], [place] [address]Dr. Chrissy Frazier RBC 5.38 106/ul Normal 4.70-6.10 [facility] Comment on above: Performed By: #### C BC ####[facility] Hpxhqkcpqi518[address] [place], [place] [address]Dr. Chrissy Frazier WBC 15.8 103/ul Critically high 4.0-11.0 [facility] Comment on above: Performed By: #### C BC ####[facility] Ruzynnagyo76[address] [place] [address]Dr. Chrissy Frazier CULTURE URINEon 07-01-2022 CULTURE URINE Culture Observations: No growth Normal [facility] Comment on above: Performed By: #### U RCX ####[facility] Kgcxsisjja837[address] [place], [place] [address]Dr. Chrissy Frazier Covid-19 PCR (CVDTB)on 06-21 SARS-CoV-2 (COVID-19) RNA RHIANNON+probe Ql (Unsp spec) Not detected Normal NOT DETECTED [facility] Comment on above: Result Comment: When [...] for this test is supported by the [place] Manager of Health and Human Service's declaration [...] be used). Performed By: #### C VDTBH ####[facility] Alwalmobfk[address] [place] [address]Dr. Chrissy Freddie DRUG SCREEN RAPID (URINE)on 07-01-2022 AMP Negative Normal NEGATIVE [facility] Comment on above: Performed By: #### D REYES UAMIC ####[facility] Zxbhfuwasd49[address] [place] [id number]. Chrissy Frazier BAR Negative Normal NEGATIVE [facility] Comment on above: Performed By: #### D CHAYAD, UAMIC ####[facility] Cnjzwwrfjg4861 [place] [id number]. Chrissy Frazier BUP Negative Normal NEGATIVE [facility] Comment on above: Performed By: #### D REYES UAMIC ####[facility] Pbuswxppzi7910 [place] [id number]. Tishrowan Frazier BZO Negative Normal NEGATIVE [facility] Comment on above: Performed By: #### D REYES UAMIC ####[facility] Hokolpvzst025[address] [place] [id number]. Chrissy Frazier LAUREN Negative Normal NEGATIVE [facility] Comment on above: Performed By: #### Amelie CHAMBERS UAMIC ####[facility] Duzjttphzv960[address] [place], [place] [address]Dr. Chrissy Frazier CUT-OFFS SEE BELOW Normal [facility] Comment on above: Result Comment: AMP [...] ng/mL Performed By: #### Amelie CHAMBERS UAMIC ####[facility] Ahlqhdclrl511[address] [place], [place] [address]Dr. Chrissy Frazier DRUG CUT HEADER DRUG CLASS TEST SYSTEM CUT-OFF CONCENTRATIONS ARE FOLLOWS: Normal [facility] Comment on above: Performed By: #### Amelie CHAMBERS UAMIC ####[facility] Csecvddwya137[address] [place], [place] [address]Dr. Chrissy Frazier mAMP Negative Normal NEGATIVE [facility] Comment on above: Performed By: #### Amelie CHAMBERS UAMIC ####[facility] Qqkyiseoks6301[address] [place], [place] [address]Dr. Chrissy Frazier MTD Negative Normal NEGATIVE [facility] Comment on above: Performed By: #### Amelie CHAMBERS UAMIC ####[facility] Snoumsfaob2370[address] [place], [place] [address]Dr. Chrissy Frazier OPI Negative Normal NEGATIVE [facility] Comment on above: Performed By: #### Amelie CHAMBERS UAMIC ####[facility] Xltryyzqrl8965[address] [place], [place] [address]Dr. Chrissy Frazier OXY Negative Normal NEGATIVE [facility] Comment on above: Performed By: #### D REYES, UAMIC ####[facility] Tpqtlbvesq42[address] [place] [address]Dr. Chrissy Frazier PCP Negative Normal NEGATIVE [facility] Comment on above: Performed By: #### D REYES, UAMIC ####[facility] Hxzhcdqvsh4[address] [place] [address]Dr. Chrissy Frazier PPX Negative Normal NEGATIVE [facility] Comment on above: Performed By: #### D REYES, UAMIC ####[facility] Kdhqrnhqej6367 [place] [address]Dr. Chrissy Frazier TCA Negative Normal NEGATIVE [facility] Comment on above: Performed By: #### D REYES UAMIC ####[facility] Mkspntwajc745[address] [place], [place] [address]Dr. Chrissy Frazier THC Positive Abnormal NEGATIVE [facility] Comment on above: Performed By: #### D REYES UAMIC ####[facility] Vbvyhvgdrn87[address] [place], [place] [address]Dr. Chrissy Frazier LACTATE/LACTIC ACIDon 2021 Lactate [Moles/Vol] 4.4 mmol/L Critically high 0.4-1.9 [facility] Comment on above: Performed By: #### L ACT ####[facility] Vbewgfulpn6[address] [place], [place] [address]Dr. Chrissy Frazier LIPASEon 07-01-2022 Lipase [Catalytic activity/Vol] 57.0 U/L Critically low 73.0-393.0 [facility] Comment on above: Performed By: #### A MY, PHOS, CMP, LIPA ####[facility] Hjdahrtpbp960[address] [place], [place] [address]Dr. Chrissy Frazier PHOSPHORUSon 07-01-2022 Phosphate [Mass/Vol] 1.4 mg/dL Critically low 2.6-4.7 [facility] Comment on above: Performed By: #### A MY, PHOS, CMP, LIPA ####[facility] Chqevfmrnn1518[address] [place], [place] [address]Dr. Chrissy Frazier PROF 14(COMP METB)on 022 Albumin [Mass/Vol] 4.2 g/dL Normal 3.4-5.0 [facility] Comment on above: Performed By: #### A MY, PHOS, CMP, LIPA ####[facility] Uovrtamfgk4[address] [place] [address]Dr. Chrissy Frazier Albumin/Globulin [Mass ratio] 1.1 {ratio} Normal [facility] Comment on above: Performed By: #### A MY, PHOS, CMP, LIPA ####[facility] Xlgafzrenr7[address] [place] [address]Dr. Chrissy Frazier ALP [Catalytic activity/Vol] 73 U/L Normal 46-116 [facility] Comment on above: Performed By: #### A MY, PHOS, CMP, LIPA ####[facility] Wxhlpwsbzp39[address] [place] [address]Dr. Chrissy Frazier ALT [Catalytic activity/Vol] 43 U/L Normal 16-63 [facility] Comment on above: Performed By: #### A MY, PHOS, CMP, LIPA ####[facility] Sssxkbpomf[address] [place] [address]Dr. Chrissy Frazier Anion gap [Moles/Vol] 19.0 mmol/L Normal [facility] Comment on above: Performed By: #### A MY, PHOS, CMP, LIPA ####[facility] Gqaahiqfbu9[address] [place] [address]Dr. Chrissy Frazier AST [Catalytic activity/Vol] 21 U/L Normal 15-37 [facility] Comment on above: Performed By: #### A MY, PHOS, CMP, LIPA ####[facility] Zfoxbfmery1663 [place] [address]Dr. Chrissy Frazier Bilirubin [Mass/Vol] 0.5 mg/dL Normal 0.2-1.0 [facility] Comment on above: Performed By: #### A MY, PHOS, CMP, LIPA ####[facility] Cvpucnyhyv280[address] [place] [address]Dr. Chrissy Frazier Calcium [Mass/Vol] 9.3 mg/dL Normal 8.5-10.1 [facility] Comment on above: Performed By: #### A MY, PHOS, CMP, LIPA ####[facility] Warpksqrgc37[address] [place] [address]Dr. Chrissy Frazier Chloride [Moles/Vol] 103 mmol/L Normal 98-107 [facility] Comment on above: Performed By: #### A MY, PHOS, CMP, LIPA ####[facility] Ngqjgeyfxe7759 [place] [address]Dr. Chrissy Frazier CO2 [Moles/Vol] 21.1 mmol/L Normal 21.0-32.0 [facility] Comment on above: Performed By: #### A MY, PHOS, CMP, LIPA ####[facility] Qzctpborpm[address] [place], [place] [address]Dr. Chrissy Frazier Creatinine [Mass/Vol] 1.44 mg/dL Critically high 0.70-1.30 [facility] Comment on above: Performed By: #### A MY, PHOS, CMP, LIPA ####[facility] Mklnremiqa12[address] [place], [place] [address]Dr. Chrissy Frazier EGFR-AF IRANIAN >60 Normal >=60 [facility] Comment on above: Performed By: #### A MY, PHOS, CMP, LIPA ####[facility] Vquovlpnyj27[address] [place] [address]Dr. Chrissy Frazier EGFR-NON AF IRANIAN 57 mL/min/1.73m2 Critically low >=60 [facility] Comment on above: Performed By: #### A MY, PHOS, CMP, LIPA ####[facility] Ifknlfwrmt97[address] [place] [address]Dr. Chrissy Frazier Globulin (S) [Mass/Vol] 3.9 g/dL Normal [facility] Comment on above: Performed By: #### A MY, PHOS, CMP, LIPA ####[facility] Obcdfssvfy17[address] [place] [address]Dr. Chrissy Frazier Glucose [Mass/Vol] 148 mg/dL Critically high 74-106 [facility] Comment on above: Performed By: #### A MY, PHOS, CMP, LIPA ####[facility] Gjopnkttby18[address] [place] [address]Dr. Chrissy Frazier Potassium [Moles/Vol] 3.1 mmol/L Critically low 3.5-5.1 [facility] Comment on above: Performed By: #### A MY, PHOS, CMP, LIPA ####[facility] Lfqfnruhbg8967 [place] [address]Dr. Chrissy Frazier Protein [Mass/Vol] 8.1 g/dL Normal 6.4-8.2 [facility] Comment on above: Performed By: #### A MY, PHOS, CMP, LIPA ####[facility] Pbdrxyrxjm7089 [place] [address]Dr. Chrissy Frazier Sodium [Moles/Vol] 140 mmol/L Normal 136-145 [facility] Comment on above: Performed By: #### A MY, PHOS, CMP, LIPA ####[facility] Xyefwpjoxk9236 [place] [address]Dr. Chrissy Frazier Urea nitrogen [Mass/Vol] 10.0 mg/dL Normal 7.0-18.0 [facility] Comment on above: Performed By: #### A MY, PHOS, CMP, LIPA ####[facility] Tnurklrnvj9095 [place] [address]Dr. Chrissy Frazier Urea nitrogen/Creatinine [Mass ratio] 6.9 mg/mg Normal [facility] Comment on above: Performed By: #### A MY, PHOS, CMP, LIPA ####[facility] Qnzdgxidhd9001 [place] [address]Dr. Chrissy Freddie UA RANDOM W/MICROSCOPICon BACTERIA TRACE Abnormal NONE SEEN [facility] Comment on above: Performed By: #### D REYES UAMIC ####[facility] Icfrethwwl12[address] [place] [address]Dr. Tishrowan Freddie Bilirubin Ql (U) Negative Normal NEGATIVE [facility] Comment on above: Performed By: #### D REYES UAMIC ####[facility] Rcgikmnaxc8967 [place] [address]Dr. Chrissy Frazier CAST NONE SEEN Normal NONE SEEN [facility] Comment on above: Performed By: #### Amelie CHAMBERS UAMIC ####[facility] Puvipbnhsl[address] [place], [place] [address]Dr. Chrissy Frazier Clarity (U) CLEAR Normal CLEAR [facility] Comment on above: Performed By: #### Amelie CHAMBERS UAMIC ####[facility] Exspcgdmfb1563 [place] [address]Dr. Chrissy Frazier Color (U) YELLOW Normal YELLOW [facility] Comment on above: Performed By: #### Amelie CHAMBERS UAMIC ####[facility] Bcnkdyzzrq5[address] [place], [place] [address]Dr. Chrissy Frazier Crystals LM Nom (Urine sed) NONE SEEN Normal NONE SEEN [facility] Comment on above: Performed By: #### Amelie CHAMBERS UAMIC ####[facility] Kiznnuaenr216[address] [place], [place] [address]Dr. Chrissy Frazier Epithelial cells LM Ql (Urine sed) RARE Normal NONE SEEN /RARE [facility] Comment on above: Performed By: #### Amelie CHAMBERS UAMIC ####[facility] Npdipvlabr9[address] [place], [place] [address]Dr. Chrissy Frazier Glucose Ql (U) Negative Normal NEGATIVE [facility] Comment on above: Performed By: #### Amelie CHAMBERS UAMIC ####[facility] Qqyzuieuof145[address] [place], [place] [address]Dr. Chrissy Frazier Hemoglobin Ql (U) Negative Normal NEGATIVE [facility] Comment on above: Performed By: #### Amelie CHAMBERS UAMIC ####[facility] Ivupnpbkil2375[address] [place], [place] [address]Dr. Chrissy Frazier Ketones Ql (U) 40 mg/dl Abnormal NEGATIVE [facility] Comment on above: Performed By: #### Amelie CHAMBERS UAMIC ####[facility] Ytzmzwruod[address] [place], [place] [address]Dr. Chrissy Frazier LEUKOCYTES Negative Normal NEGATIVE [facility] Comment on above: Performed By: #### Amelie CHAMBERS, UAMIC ####[facility] [address] [place] [address]Dr. Chrissy Frazier MUCOUS MODERATE Abnormal NONE SEEN [facility] Comment on above: Performed By: #### Amelie CHAMBERS, UAMIC ####[facility] Zsbveqzmkl[address] [place] [address]Dr. Chrissy Frazier Nitrite Ql (U) Negative Normal NEGATIVE The [facility] Comment on above: Performed By: #### Amelie CHAMBERS UAMIC ####[facility] Ohmuqasbdh[address] [place], [place] [address]Dr. Chrissy Frazier pH (U) 6.0 [pH] Normal 5-9 [facility] Comment on above: Performed By: #### Amelie CHAMBERS UAMIC ####[facility] Lvuxekymbq[address] [place], [place] [address]Dr. Chrissy Frazier RBC 0-2 Normal 0-2 [facility] Comment on above: Performed By: #### Amelie CHAMBERS UAMIC ####[facility] Hbqzlmzqox5[address] [place], [place] [address]Dr. Chrissy Frazier SPEC GRAVITY 1.020 Normal 1.005-<=1.025 [facility] Comment on above: Performed By: #### Amelie CHAMBERS UAMIC ####[facility] Vudizzhvep[address] [place], [place] [address]Dr. Chrissy Frazier UA PROTEIN Negative Normal NEGATIVE/ TRACE [facility] Comment on above: Performed By: #### Amelie CHAMBERS UAMIC ####[facility] Gmyivmzauj[address] [place], [place] [address]Dr. Chrissy Frazier Urobilinogen Qn (U) 0.2 {Estrellita'U}/dL Normal 0.2 - 1. 0 [facility] Comment on above: Performed By: #### Amelie CHAMBERS UAMIC ####[facility] Dghsgleawf[address] [place], [place] [address]Dr. Chrissy Frazier WBC 0-2 Abnormal NONE SEEN [facility] Comment on above: Performed By: #### D RUGRPD, UAMIC ####[facility] Cbiypuhbuq2298 [place], [place] [address]Zd. Chrissy Frazier XR ABD FLAT UP_PA Enoch 07-01 XR ABD FLAT UP_PA CH Normal [facility] Covid-19 PCR (CVDTB)on SARS-CoV-2 (COVID-19) RNA RHIANNON+probe Ql (Unsp spec) Not detected Normal NOT DETECTED [facility] Comment on above: Result Comment: When [...] for this test is supported by the [place] Manager of Health and Human Service's declaration [...] longer be used). Performed By: #### C [facility] ####[facility] B[address]uzvellb[address] [place], [place] [address]Og. Chrissy Frazier SYMPTOMATIC COVID-19 ANTIGEN on 04-23-2022 EUA Statement SEE BELOW Normal The [facility] Comment on above: Result Comment: This [...] revoked sooner. Performed By: #### C VDAGS ####[facility] Wguxfkbmwl[address] [place] [address]Dr. Chrissy Frazier SARS-CoV-2 (COVID-19) RNA RHIANNON+probe Ql (Unsp spec) Negative Normal NEGATIVE [facility] Comment on above: Performed By: #### C VDAGS ####[facility] Jzgihgaqyu8934[address] [place], [place] [address]Dr. Chrissy Frazier AMYLASEon 04-04-2022 Amylase [Catalytic activity/Vol] 40 U/L Normal 25-115 [facility] Comment on above: Performed By: #### C MP, TERRENCE, LIPA ####[facility] Gaehezgnpp[address] [place], [place] [address]Dr. Chrissy Frazier CBC AUTO DIFFon 04-04-2022 BASO # 0.1 103/ul Normal 0.0-0.1 [facility] Comment on above: Performed By: #### C BC ####[facility] Mjgujtbmuc91[address] [place], [place] [address]Dr. Chrissy Frazier Basophils/100 WBC (Bld) 0.4 % Normal 0.2-2.0 [facility] Comment on above: Performed By: #### C BC ####[facility] Ccnzcptaig070[address] [place], [place] [address]Dr. Chrissy Frazier EO # 0.1 103/ul Normal 0.0-0.7 [facility] Comment on above: Performed By: #### C BC ####[facility] Ltgujamfhe375[address] [place], [place] [address]Dr. Chrissy Frazier Eosinophils/100 WBC (Bld) 0.6 % Critically low 0.9-7.0 [facility] Comment on above: Performed By: #### C BC ####[facility] Qkoepghhhe048[address] [place], [place] [address]Dr. Chrissy Frazier Erythrocyte distribution width (RBC) [Ratio] 13.2 % Normal 11.0-15.0 [facility] Comment on above: Performed By: #### C BC ####[facility] Tydjcwjhrc[address] [place] [address]Dr. Chrissy Frazier Hematocrit (Bld) [Volume fraction] 48.3 % Normal 42.0-54.0 [facility] Comment on above: Performed By: #### C BC ####[facility] Eixucttkdg56[address] [place] [address]Dr. Chrissy Frazier Hemoglobin (Bld) [Mass/Vol] 16.1 g/dL Normal 14.0-18.0 [facility] Comment on above: Performed By: #### C BC ####[facility] Dvnzpttdqn[address] [place], [place] [address]Dr. Chrissy Frazier IG # 0.12 10e3/ul Critically high 0.00-0.03 [facility] Comment on above: Performed By: #### C BC ####[facility] Mxbpbnrxyq75[address] [place], [place] [address]Dr. Chrissy Frazier IG % 0.9 % Critically high 0.0-0.5 [facility] Comment on above: Performed By: #### C BC ####[facility] Dkjkpvyyux[address] [place], [place] [address]Dr. Chrissy Frazier LYMPH # 3.0 103/ul Normal 1.2-3.8 [facility] Comment on above: Performed By: #### C BC ####[facility] Mwzpinpvia412[address] [place], [place] [address]Dr. Chrissy Frazier Lymphocytes/100 WBC (Bld) 22.3 % Normal 20.5-60.0 [facility] Comment on above: Performed By: #### C BC ####[facility] Kgmvrtbsjn64[address] [place], [place] [address]DrNancy Frazier MANUAL DIFF REQ NO Normal [facility] Comment on above: Performed By: #### C BC ####[facility] Pgruesiyek[address] [place], [place] [address]DrNancy Frazier MCH (RBC) [Entitic mass] 28.6 pg Normal 25.9-34.0 [facility] Comment on above: Performed By: #### C BC ####[facility] [address]ymkkmsql[address] [place] [id number]. Chrissy Freddie MCHC (RBC) [Mass/Vol] 33.3 g/dL Normal 29.9-35.2 [facility] Comment on above: Performed By: #### C BC ####[facility] Ysukezlobf[address] [place] [id number]. Tishrowan Freddie MCV (RBC) [Entitic vol] 85.9 fL Normal 80.0-94.0 [facility] Comment on above: Performed By: #### C BC ####[facility] Wddnaxarod379[address] [place], [place] [address]Dr. Chrissy Frazier MONO # 0.8 103/ul Normal 0.3-0.8 [facility] Comment on above: Performed By: #### C BC ####[facility] Wnluhjkysu768[address] [place], [place] [address]Dr. Chrissy Frazier Monocytes/100 WBC (Bld) 5.7 % Normal 1.7-12.0 [facility] Comment on above: Performed By: #### C BC ####[facility] Dmxxxqhsvt[address] [place], [place] [address]Dr. Chrissy Frazier NEUT # 9.3 103/ul Critically high 1.4-6.5 [facility] Comment on above: Performed By: #### C BC ####[facility] Xfeggsmacd[address] [place], [place] [address]Dr. Chrissy Frazier Neutrophils/100 WBC (Bld) 70.1 % Normal 43.0-75.0 [facility] Comment on above: Performed By: #### C BC ####[facility] Lwrpcpdgmi96[address] [place], [place] [address]DrNancy Frazier Platelet mean volume (Bld) [Entitic vol] 10.3 fL Normal 9.5-13.5 [facility] Comment on above: Performed By: #### C BC ####[facility] Noymvsxjuw[address] [place], [place] [address]Dr. Chrissy Frazier PLT 461 103/ul Critically high 150-450 [facility] Comment on above: Performed By: #### C BC ####[facility] [address]yqdpj[address] [place] [address]Dr. Tishrowan Freddie RBC 5.62 106/ul Normal 4.70-6.10 [facility] Comment on above: Performed By: #### C BC ####[facility] Oqqkdaxgqk5155 [place] [id number]. Chrissy Frazier WBC 13.3 103/ul Critically high 4.0-11.0 The [facility] Comment on above: Performed By: #### C BC ####[facility] Dkccdzjpsa[address] [place] [address]Dr. Chrissy Frazier LIPASEon 04-04-2022 Lipase [Catalytic activity/Vol] 118.0 U/L Normal 73.0-393.0 [facility] Comment on above: Performed By: #### C MP, TERRENCE, LIPA ####[facility] Z[address]mfthwsk[address] [place] [address]Dr. Chrissy Frazier PROF 14(COMP METB)on 022 Albumin [Mass/Vol] 4.3 g/dL Normal 3.4-5.0 [facility] Comment on above: Performed By: #### C MP, TERRENCE, LIPA ####[facility] Wy[address]jlbbr[address] [place] [address]Dr. Chrissy Frazier Albumin/Globulin [Mass ratio] 1.0 {ratio} Normal [facility] Comment on above: Performed By: #### C MP, TERRENCE, LIPA ####[facility] N[address]zdufmhq[address] [place] [address]Dr. Chrissy Frazier ALP [Catalytic activity/Vol] 84 U/L Normal 46-116 [facility] Comment on above: Performed By: #### C MP, TERRENCE, LIPA ####[facility] Wzmbzylqeo55[address] [place] [address]Dr. Chrissy Frazier ALT [Catalytic activity/Vol] 81 U/L Critically high 16-63 [facility] Comment on above: Performed By: #### C MP, TERRENCE, LIPA ####[facility] Cohrhlmnvg[address] [place] [id number]. Chrissy Frazier Anion gap [Moles/Vol] 17.9 mmol/L Normal [facility] Comment on above: Performed By: #### C MP, TERRENCE, LIPA ####[facility] [address]hvfdkdhv35[address] [place] [address]Dr. Chrissy Frazier AST [Catalytic activity/Vol] 25 U/L Normal 15-37 [facility] Comment on above: Performed By: #### C MP, TERRENCE, LIPA ####[facility] Jnxeqmbehc9[address] [place] [address]Dr. Chrissy Frazier Bilirubin [Mass/Vol] 0.5 mg/dL Normal 0.2-1.0 [facility] Comment on above: Performed By: #### C MP, TERRENCE, LIPA ####[facility] Dnvbcmldvb6[address] [place] [address]Dr. Chrissy Frazier Calcium [Mass/Vol] 9.6 mg/dL Normal 8.5-10.1 [facility] Comment on above: Performed By: #### C MP, TERRENCE, LIPA ####[facility] [address]odwuzn[address] [place] [address]Dr. Chrissy Frazier Chloride [Moles/Vol] 101 mmol/L Normal 98-107 [facility] Comment on above: Performed By: #### C MP, TERRENCE, LIPA ####[facility] Fhratpdoqw9[address] [place] [address]Dr. Chrissy Frazier CO2 [Moles/Vol] 18.6 mmol/L Critically low 21.0-32.0 [facility] Comment on above: Performed By: #### C MP, TERRENCE, LIPA ####[facility] Evmtaswsne7[address] [place] [address]Dr. Chrissy Frazier Creatinine [Mass/Vol] 1.39 mg/dL Critically high 0.70-1.30 [facility] Comment on above: Performed By: #### C MP, TERRENCE, LIPA ####[facility] Aiiegfushf[address] [place] [address]Dr. Chrissy Frazier EGFR-AF IRANIAN >60 Normal >=60 [facility] Comment on above: Performed By: #### C MP, TERRENCE, LIPA ####[facility] Vgtxkrevdi11[address] [place] [address]Dr. Chrissy Frazier EGFR-NON AF IRANIAN 59 mL/min/1.73m2 Critically low >=60 [facility] Comment on above: Performed By: #### C MP, TERRENCE, LIPA ####[facility] Kuiiyrrtsi75[address] [place] [address]Dr. Chrissy Frazier Globulin (S) [Mass/Vol] 4.3 g/dL Normal [facility] Comment on above: Performed By: #### C MP, TERRENCE, LIPA ####[facility] Qppweqbvpj1420 [place] [address]Dr. Chrissy Frazier Glucose [Mass/Vol] 132 mg/dL Critically high 74-106 [facility] Comment on above: Performed By: #### C MP, TERRENCE, LIPA ####[facility] Jjogkcbbni15[address] [place], [place] [address]Dr. Chrissy Frazier Potassium [Moles/Vol] 3.5 mmol/L Normal 3.5-5.1 [facility] Comment on above: Performed By: #### C MP, TERRENCE, LIPA ####[facility] Alxptbatqb00[address] [place], [place] [address]Dr. Chrissy Frazier Protein [Mass/Vol] 8.6 g/dL Critically high 6.4-8.2 [facility] Comment on above: Performed By: #### C MP, TERRENCE, LIPA ####[facility] Pfvjcbcfty[address] [place] [address]Dr. Chrissy Frazier Sodium [Moles/Vol] 134 mmol/L Critically low 136-145 [facility] Comment on above: Performed By: #### C MP, TERRENCE, LIPA ####[facility] Pccickvefr25[address] [place] [address]Dr. Chrissy Frazier Urea nitrogen [Mass/Vol] 8.0 mg/dL Normal 7.0-18.0 [facility] Comment on above: Performed By: #### C MP, TERRENCE, LIPA ####[facility] Mhipqkrzer[address] [place] [address]Dr. Chrissy Frazier Urea nitrogen/Creatinine [Mass ratio] 5.8 mg/mg Normal [facility] Comment on above: Performed By: #### C TERRENCE ADAIR LIPA ####[facility] Ujpdqvtlmn37[address] [place] [address]Dr. Chrissy Frazier XR ABD FLAT UP_PA Enoch 04-04 XR ABD FLAT UP_PA CH Normal [facility] AMMONIAon 03-31-2022 Ammonia (P) [Moles/Vol] 19 umol/L Normal 11-32 [facility] Comment on above: Performed By: #### A MM ####[facility] Mikopnxkuk[address] [place], [place] [address]Dr. Chrissy Freddie CBC AUTO DIFFon 03-31-2022 BASO # 0.1 103/ul Normal 0.0-0.1 [facility] Comment on above: Performed By: #### C BC ####[facility] Xjpbomuqvp[address] [place], [place] [address]Dr. Chrissy Freddie Basophils/100 WBC (Bld) 0.5 % Normal 0.2-2.0 [facility] Comment on above: Performed By: #### C BC ####[facility] Klzppobnxe[address] [place], [place] [address]Dr. Chrissy Frazier EO # 0.2 103/ul Normal 0.0-0.7 [facility] Comment on above: Performed By: #### C BC ####[facility] Iyitbpkceu50[address] [place], [place] [address]Dr. Tishrowan Frazier Eosinophils/100 WBC (Bld) 1.6 % Normal 0.9-7.0 [facility] Comment on above: Performed By: #### C BC ####[facility] Kpbfzsuiyt[address] [place], [place] [address]Dr. Chrissy Freddie Erythrocyte distribution width (RBC) [Ratio] 13.2 % Normal 11.0-15.0 [facility] Comment on above: Performed By: #### C BC ####[facility] Hybhhprzlu[address] [place], [place] [address]Dr. Chrissy Frazier Hematocrit (Bld) [Volume fraction] 42.1 % Normal 42.0-54.0 [facility] Comment on above: Performed By: #### C BC ####[facility] Nkuurmyiqu3297 [place] [address]Dr. Chrissy Frazier Hemoglobin (Bld) [Mass/Vol] 14.3 g/dL Normal 14.0-18.0 [facility] Comment on above: Performed By: #### C BC ####[facility] Mgdjvvyyab4686 [place] [address]Dr. Chrissy Frazier IG # 0.05 10e3/ul Critically high 0.00-0.03 [facility] Comment on above: Performed By: #### C BC ####[facility] Veovvaoeqz1592 [place] [address]Dr. Chrissy Frazier IG % 0.5 % Normal 0.0-0.5 [facility] Comment on above: Performed By: #### C BC ####[facility] Estwvltqil4[address] [place] [address]Dr. Chrissy Frazier LYMPH # 2.9 103/ul Normal 1.2-3.8 [facility] Comment on above: Performed By: #### C BC ####[facility] Eghtovesnp7583 [place] [address]Dr. Chrissy Frazier Lymphocytes/100 WBC (Bld) 25.7 % Normal 20.5-60.0 [facility] Comment on above: Performed By: #### C BC ####[facility] Sncmcysuhq6[address] [place] [address]Dr. Chrissy Frazier MANUAL DIFF REQ NO Normal [facility] Comment on above: Performed By: #### C BC ####[facility] Syqhicsamf9746 [place] [address]Dr. Chrissy Frazier MCH (RBC) [Entitic mass] 29.2 pg Normal 25.9-34.0 [facility] Comment on above: Performed By: #### C BC ####[facility] Ecwggxfgkg7118 [place] [address]Dr. Chrissy Frazier MCHC (RBC) [Mass/Vol] 34.0 g/dL Normal 29.9-35.2 [facility] Comment on above: Performed By: #### C BC ####[facility] Muhizvmzfc0833 [place] [id number]. Chrissy Frazier MCV (RBC) [Entitic vol] 85.9 fL Normal 80.0-94.0 [facility] Comment on above: Performed By: #### C BC ####[facility] Yudogywjmf1569 [place] [address]Dr. Chrissy Freddie MONO # 1.0 103/ul Critically high 0.3-0.8 [facility] Comment on above: Performed By: #### C BC ####[facility] Sirembegwf9551 [place] [address]Dr. Chrissy Frazier Monocytes/100 WBC (Bld) 8.6 % Normal 1.7-12.0 [facility] Comment on above: Performed By: #### C BC ####[facility] Jraijfmwdh427[address] [place], [place] [address]Dr. Chrissy Frazier NEUT # 7.0 103/ul Critically high 1.4-6.5 [facility] Comment on above: Performed By: #### C BC ####[facility] Tmbtufdsba[address] [place], [place] [address]Dr. Tishrowan Frazier Neutrophils/100 WBC (Bld) 63.1 % Normal 43.0-75.0 [facility] Comment on above: Performed By: #### C BC ####[facility] Yhviptjqvt9258 [place] [address]Dr. Tishrowan Frazier Platelet mean volume (Bld) [Entitic vol] 10.4 fL Normal 9.5-13.5 [facility] Comment on above: Performed By: #### C BC ####[facility] Wmwzvbomfn6605 [place] [id number]. Chrissy Frazier PLT 308 103/ul Normal 150-450 [facility] Comment on above: Performed By: #### C BC ####[facility] Bujdphlxdq39[address] [place], [place] [address]Dr. Chrissy Frazier RBC 4.90 106/ul Normal 4.70-6.10 [facility] Comment on above: Performed By: #### C BC ####[facility] Ewxgzcisac2827 [place] [address]Dr. Tishrowan Freddie WBC 11.1 103/ul Critically high 4.0-11.0 [facility] Comment on above: Performed By: #### C BC ####[facility] Nkqbgnttnz0005 [place] [address]Dr. Chrissy Frazier PROF 14(COMP METB)on 022 Albumin [Mass/Vol] 3.5 g/dL Normal 3.4-5.0 [facility] Comment on above: Performed By: #### C MP ####[facility] Ccfqeiyuoo[address] [place], [place] [address]Dr. Chrissy Frazier Albumin/Globulin [Mass ratio] 0.9 {ratio} Normal [facility] Comment on above: Performed By: #### C MP ####[facility] Wjzrvapgbt555[address] [place], [place] [address]Dr. Tishrowan Frazier ALP [Catalytic activity/Vol] 68 U/L Normal 46-116 [facility] Comment on above: Performed By: #### C MP ####[facility] Ruhgwqvuhg[address] [place], [place] [address]Dr. Chrissy Frazier ALT [Catalytic activity/Vol] 113 U/L Critically high 16-63 [facility] Comment on above: Performed By: #### C MP ####[facility] Dzplgbxmdf454[address] [place], [place] [address]Dr. Chrissy Frazier Anion gap [Moles/Vol] 14.0 mmol/L Normal [facility] Comment on above: Performed By: #### C MP ####[facility] Eryuyudhak560[address] [place], [place] [address]Dr. Chrissy Frazier AST [Catalytic activity/Vol] 31 U/L Normal 15-37 [facility] Comment on above: Performed By: #### C MP ####[facility] Xuvggenyid075[address] [place], [place] [address]Dr. Chrissy Frazier Bilirubin [Mass/Vol] 0.6 mg/dL Normal 0.2-1.0 [facility] Comment on above: Performed By: #### C MP ####[facility] Mpieqrsthy[address] [place], [place] [address]Dr. Chrissy Frazier Calcium [Mass/Vol] 8.4 mg/dL Critically low 8.5-10.1 [facility] Comment on above: Performed By: #### C MP ####[facility] Jghrulnzbq506[address] [place], [place] [address]Dr. Chrissy Frazier Chloride [Moles/Vol] 101 mmol/L Normal 98-107 [facility] Comment on above: Performed By: #### C MP ####[facility] Lwrbzkjdhl11[address] [place], [place] [address]Dr. Chrissy Frazier CO2 [Moles/Vol] 24.2 mmol/L Normal 21.0-32.0 [facility] Comment on above: Performed By: #### C MP ####[facility] Fqwtqnwstr[address] [place], [place] [address]Dr. Chrissy Frazier Creatinine [Mass/Vol] 1.15 mg/dL Normal 0.70-1.30 [facility] Comment on above: Performed By: #### C MP ####[facility] Aknsrzoppr25[address] [place], [place] [address]Dr. Chrissy Frazier EGFR-AF IRANIAN >60 Normal >=60 [facility] Comment on above: Performed By: #### C MP ####[facility] Qccsvimrfz20[address] [place], [place] [address]Dr. Chrissy Frazier EGFR-NON AF IRANIAN >60 Normal >=60 [facility] Comment on above: Performed By: #### C MP ####[facility] Hfeafefzvf24[address] [place], [place] [address]Dr. Chrissy Frazier Globulin (S) [Mass/Vol] 3.8 g/dL Normal [facility] Comment on above: Performed By: #### C MP ####[facility] Suglilsull[address] [place], [place] [address]Dr. Chrissy Frazier Glucose [Mass/Vol] 100 mg/dL Normal 74-106 [facility] Comment on above: Performed By: #### C MP ####[facility] Pqoepobghh9343 [place] [address]Dr. Chrissy Frazier Potassium [Moles/Vol] 3.2 mmol/L Critically low 3.5-5.1 [facility] Comment on above: Performed By: #### C MP ####[facility] Jilqosbvmi5[address] [place], [place] [address]Dr. Chrissy Frazier Protein [Mass/Vol] 7.3 g/dL Normal 6.4-8.2 [facility] Comment on above: Performed By: #### C MP ####[facility] Zzgppubjxp9[address] [place], [place] [address]Dr. Chrissy Frazier Sodium [Moles/Vol] 136 mmol/L Normal 136-145 [facility] Comment on above: Performed By: #### C MP ####[facility] Ypfgrznssg987[address] [place], [place] [address]Dr. Chrissy Frazier Urea nitrogen [Mass/Vol] 13.0 mg/dL Normal 7.0-18.0 [facility] Comment on above: Performed By: #### C MP ####[facility] Urjmjbqqck424[address] [place], [place] [address]Dr. Chrissy Frazier Urea nitrogen/Creatinine [Mass ratio] 11.3 mg/mg Normal [facility] Comment on above: Performed By: #### C MP ####[facility] Emeffdqsfm[address] [place], [place] [address]Dr. Chrissy Frazier AMMONIAon 03-30-2022 Ammonia (P) [Mass/Vol] ug/dL Critically low 11-32 [facility] Comment on above: Performed By: #### A MM ####[facility] Ewrvzwwoth35[address] [place], [place] [address]Dr. Chrissy Frazier CBC AUTO DIFFon 03-30-2022 BASO # 0.1 103/ul Normal 0.0-0.1 [facility] Comment on above: Performed By: #### C BC ####[facility] Ilztousaay78[address] [place], [place] [address]Dr. Chrissy Frazier Basophils/100 WBC (Bld) 0.5 % Normal 0.2-2.0 [facility] Comment on above: Performed By: #### C BC ####[facility] Bdyayxuxyi75[address] [place] [address]Dr. Chrissy Frazier EO # 0.1 103/ul Normal 0.0-0.7 [facility] Comment on above: Performed By: #### C BC ####[facility] Xbkozflyjk721[address] [place], [place] [address]Dr. Chrissy Frazier Eosinophils/100 WBC (Bld) 1.1 % Normal 0.9-7.0 [facility] Comment on above: Performed By: #### C BC ####[facility] Exobkzrbqj476[address] [place], [place] [address]Dr. Chrissy Frazier Erythrocyte distribution width (RBC) [Ratio] 13.4 % Normal 11.0-15.0 [facility] Comment on above: Performed By: #### C BC ####[facility] Rxvrpgpyka208[address] [place], [place] [address]Dr. Chrissy Frazier Hematocrit (Bld) [Volume fraction] 45.8 % Normal 42.0-54.0 [facility] Comment on above: Performed By: #### C BC ####[facility] Jvgsnccdje18[address] [place], [place] [address]Dr. Chrissy Frazier Hemoglobin (Bld) [Mass/Vol] 14.9 g/dL Normal 14.0-18.0 [facility] Comment on above: Performed By: #### C BC ####[facility] Lvfgsbsqhg8[address] [place], [place] [address]Dr. Chrissy Frazier IG # 0.05 10e3/ul Critically high 0.00-0.03 [facility] Comment on above: Performed By: #### C BC ####[facility] Vozrfxfyzh[address] [place], [place] [address]Dr. Chrissy Frazier IG % 0.5 % Normal 0.0-0.5 [facility] Comment on above: Performed By: #### C BC ####[facility] Eejvrqyxzs[address] [place], [place] [address]Dr. Chrissy Frazier LYMPH # 3.0 103/ul Normal 1.2-3.8 [facility] Comment on above: Performed By: #### C BC ####[facility] Iyhtoggwjo5[address] [place] [address]Dr. Chrissy Frazier Lymphocytes/100 WBC (Bld) 30.2 % Normal 20.5-60.0 [facility] Comment on above: Performed By: #### C BC ####[facility] Fpxzuasehf5351 [place] [address]Dr. Chrissy Frazier MANUAL DIFF REQ NO Normal [facility] Comment on above: Performed By: #### C BC ####[facility] Htyxrspgvs5331 [place] [address]Dr. Chrissy Frazier MCH (RBC) [Entitic mass] 28.4 pg Normal 25.9-34.0 [facility] Comment on above: Performed By: #### C BC ####[facility] Uanbnqsjta1116[address] [place], [place] [address]Dr. Chrissy Frazier MCHC (RBC) [Mass/Vol] 32.5 g/dL Normal 29.9-35.2 [facility] Comment on above: Performed By: #### C BC ####[facility] Grglrxjaml4770[address] [place], [place] [address]Dr. Chrissy Frazier MCV (RBC) [Entitic vol] 87.4 fL Normal 80.0-94.0 [facility] Comment on above: Performed By: #### C BC ####[facility] Fbopngegpm39[address] [place], [place] [address]Dr. Chrissy Frazier MONO # 0.8 103/ul Normal 0.3-0.8 [facility] Comment on above: Performed By: #### C BC ####[facility] Aksteagexg898[address] [place], [place] [address]Dr. Chrissy Frazier Monocytes/100 WBC (Bld) 7.9 % Normal 1.7-12.0 [facility] Comment on above: Performed By: #### C BC ####[facility] Njvepxquxf70[address] [place], [place] [address]Dr. Yirowan Frazier NEUT # 5.9 103/ul Normal 1.4-6.5 [facility] Comment on above: Performed By: #### C BC ####[facility] Fubancocxo0236 [place] [address]DrNancy Frazier Neutrophils/100 WBC (Bld) 59.8 % Normal 43.0-75.0 [facility] Comment on above: Performed By: #### C BC ####[facility] Aiyfcdcvgh4822 [place] [address]DrNancy Frazier Platelet mean volume (Bld) [Entitic vol] 10.1 fL Normal 9.5-13.5 [facility] Comment on above: Performed By: #### C BC ####[facility] Sohmynwmfr01[address] [place], [place] [address]DrNancy Frazier PLT 320 103/ul Normal 150-450 [facility] Comment on above: Performed By: #### C BC ####[facility] Pqnbwnqqta590[address] [place], [place] [address]DrNancy Frazier RBC 5.24 106/ul Normal 4.70-6.10 [facility] Comment on above: Performed By: #### C BC ####[facility] Kfvhyeqxts495[address] [place], [place] [address]DrNancy Frazier WBC 9.9 103/ul Normal 4.0-11.0 [facility] Comment on above: Performed By: #### C BC ####[facility] Octhcoywvl7560[address] [place], [place] [address]Dr. Chrissy Frazier PROF 14(COMP METB)on 022 Albumin [Mass/Vol] 3.9 g/dL Normal 3.4-5.0 [facility] Comment on above: Performed By: #### C MP ####[facility] Fcqrhelheo7627[address] [place], [place] [address]DrNancy Frazier Albumin/Globulin [Mass ratio] 1.1 {ratio} Normal [facility] Comment on above: Performed By: #### C MP ####[facility] Zbuhwoxupt0930[address] [place], [place] [address]DrNancy Lowe Frazier ALP [Catalytic activity/Vol] 88 U/L Normal 46-116 [facility] Comment on above: Performed By: #### C MP ####[facility] Lgzcsjcjbj9036 [place] [address]Dr. Chrissy Frazier ALT [Catalytic activity/Vol] 161 U/L Critically high 16-63 [facility] Comment on above: Performed By: #### C MP ####[facility] Qnujthuoyk940[address] [place], [place] [address]Dr. Chrissy Freddie Anion gap [Moles/Vol] 12.3 mmol/L Normal [facility] Comment on above: Performed By: #### C MP ####[facility] Cavarkwhac780[address] [place], [place] [address]Dr. Chrissy Freddie AST [Catalytic activity/Vol] 64 U/L Critically high 15-37 [facility] Comment on above: Performed By: #### C MP ####[facility] Hsopixknjj6922[address] [place], [place] [address]Dr. Chrissy Freddie Bilirubin [Mass/Vol] 0.8 mg/dL Normal 0.2-1.0 [facility] Comment on above: Performed By: #### C MP ####[facility] Msjqrqyzgq435[address] [place], [place] [address]Dr. Chrissy Freddie Calcium [Mass/Vol] 8.4 mg/dL Critically low 8.5-10.1 [facility] Comment on above: Performed By: #### C MP ####[facility] Ytciezynfp137[address] [place], [place] [address]Dr. Chrissy Freddie Chloride [Moles/Vol] 103 mmol/L Normal 98-107 [facility] Comment on above: Performed By: #### C MP ####[facility] Bixrefbmqj438[address] [place], [place] [address]Dr. Chrissy Frazier CO2 [Moles/Vol] 26.5 mmol/L Normal 21.0-32.0 [facility] Comment on above: Performed By: #### C MP ####[facility] Eohzzfqrnn966[address] [place], [place] [address]Dr. Chrissy Frazier Creatinine [Mass/Vol] 1.24 mg/dL Normal 0.70-1.30 [facility] Comment on above: Performed By: #### C MP ####[facility] Hrduzblwvv37[address] [place] [address]Dr. Chrissy Frazier EGFR-AF IRANIAN >60 Normal >=60 [facility] Comment on above: Performed By: #### C MP ####[facility] Lrmibqeboi3332 [place] [address]Dr. Chrissy Freddie EGFR-NON AF IRANIAN >60 Normal >=60 [facility] Comment on above: Performed By: #### C MP ####[facility] Qohtvnvrcy1435 [place] [address]Dr. Chrissy Freddie Globulin (S) [Mass/Vol] 3.7 g/dL Normal [facility] Comment on above: Performed By: #### C MP ####[facility] Bgdyfiktop558[address] [place], [place] [address]Dr. Chrissy Freddie Glucose [Mass/Vol] 108 mg/dL Critically high 74-106 [facility] Comment on above: Performed By: #### C MP ####[facility] Migifgbmgq8126 [place] [address]Dr. Chrissy Freddie Potassium [Moles/Vol] 3.8 mmol/L Normal 3.5-5.1 [facility] Comment on above: Performed By: #### C MP ####[facility] Pjwsagssml9390 [place] [address]Dr. Chrissy Freddie Protein [Mass/Vol] 7.6 g/dL Normal 6.4-8.2 [facility] Comment on above: Performed By: #### C MP ####[facility] Othstydzdk6322 [place] [address]Dr. Chrissy Frazier Sodium [Moles/Vol] 138 mmol/L Normal 136-145 [facility] Comment on above: Performed By: #### C MP ####[facility] Fbhzbkoabn1511 [place] [address]Dr. Chrissy Freddie Urea nitrogen [Mass/Vol] 12.0 mg/dL Normal 7.0-18.0 [facility] Comment on above: Performed By: #### C MP ####[facility] Mscxjgkzzh329[address] [place], [place] [address]Dr. Chrissy Frazier Urea nitrogen/Creatinine [Mass ratio] 9.7 mg/mg Normal [facility] Comment on above: Performed By: #### C MP ####[facility] Aebhpgwybv819992 [address] [place], [place] [address]Dr. Chrissy Frazier AMMONIAon 03-29-2022 Ammonia (P) [Moles/Vol] 27 umol/L Normal 11-32 [facility] Comment on above: Performed By: #### A MM ####[facility] Spibzsuzxq780[address] [place], [place] [address]Dr. Chrissy Frazier AMYLASEon 03-29-2022 Amylase [Catalytic activity/Vol] 29 U/L Normal 25-115 [facility] Comment on above: Performed By: #### L IPA, TERRENCE ####[facility] Busatjzfhy7540[address] [place], [place] [address]Dr. Chrissy Frazier CBC AUTO DIFFon 03-29-2022 BASO # 0.0 103/ul Normal 0.0-0.1 [facility] Comment on above: Performed By: #### C BC ####[facility] Xostqjfgws688[address] [place], [place] [address]Dr. Chrissy Frazier Basophils/100 WBC (Bld) 0.2 % Normal 0.2-2.0 [facility] Comment on above: Performed By: #### C BC ####[facility] Yfasxioisb654[address] [place], [place] [address]Dr. Chrissy Frazier EO # 0.0 103/ul Normal 0.0-0.7 [facility] Comment on above: Performed By: #### C BC ####[facility] Wnuufwyycp378492 [address] [place], [place] [address]Dr. Chrissy Frazier Eosinophils/100 WBC (Bld) 0.4 % Critically low 0.9-7.0 [facility] Comment on above: Performed By: #### C BC ####[facility] Zwvbmwnyhy110[address] [place], [place] [address]Dr. Chrissy Frazier Erythrocyte distribution width (RBC) [Ratio] 13.6 % Normal 11.0-15.0 [facility] Comment on above: Performed By: #### C BC ####[facility] Eugnvoreox5567 [place] [address]Dr. Chrissy Frazier Hematocrit (Bld) [Volume fraction] 45.2 % Normal 42.0-54.0 [facility] Comment on above: Performed By: #### C BC ####[facility] Gnfkcblrus783[address] [place], [place] [address]Dr. Chrissy Frazier Hemoglobin (Bld) [Mass/Vol] 14.8 g/dL Normal 14.0-18.0 [facility] Comment on above: Performed By: #### C BC ####[facility] Jnenszbtvl098392 [address] [place], [place] [address]Dr. Tishrowan Frazier IG # 0.03 10e3/ul Normal 0.00-0.03 [facility] Comment on above: Performed By: #### C BC ####[facility] Txzywxnltp734[address] [place], [place] [address]Dr. Chrissy Frazier IG % 0.3 % Normal 0.0-0.5 [facility] Comment on above: Performed By: #### C BC ####[facility] Vnuficdlme701[address] [place], [place] [address]Dr. Chrissy Frazier LYMPH # 2.0 103/ul Normal 1.2-3.8 [facility] Comment on above: Performed By: #### C BC ####[facility] Vzfyezwyyt089[address] [place], [place] [address]Dr. Chrissy Freddie Lymphocytes/100 WBC (Bld) 18.3 % Critically low 20.5-60.0 [facility] Comment on above: Performed By: #### C BC ####[facility] Tqvkynfhtd917[address] [place], [place] [address]Dr. Tishrowan Frazier MANUAL DIFF REQ NO Normal [facility] Comment on above: Performed By: #### C BC ####[facility] Yxqhnfechr0580[address] [place], [place] [address]Dr. Chrissy Frazier MCH (RBC) [Entitic mass] 28.5 pg Normal 25.9-34.0 [facility] Comment on above: Performed By: #### C BC ####[facility] Safdakhrvv9012 [place] [address]Dr. Chrissy Frazier MCHC (RBC) [Mass/Vol] 32.7 g/dL Normal 29.9-35.2 [facility] Comment on above: Performed By: #### C BC ####[facility] Mdclfsixwv220892 [address] [place], [place] [address]Dr. Chrissy Frazier MCV (RBC) [Entitic vol] 87.1 fL Normal 80.0-94.0 [facility] Comment on above: Performed By: #### C BC ####[facility] Otwjrdktau32[address] [place], [place] [address]Dr. Chrissy Frazier MONO # 0.9 103/ul Critically high 0.3-0.8 [facility] Comment on above: Performed By: #### C BC ####[facility] Nvfwiofopg705[address] [place], [place] [address]Dr. Chrissy Frazier Monocytes/100 WBC (Bld) 8.6 % Normal 1.7-12.0 [facility] Comment on above: Performed By: #### C BC ####[facility] Ynhzeealdy913[address] [place], [place] [address]Dr. Tishrowan Frazier NEUT # 7.8 103/ul Critically high 1.4-6.5 [facility] Comment on above: Performed By: #### C BC ####[facility] Curdcholtv618[address] [place], [place] [address]Dr. Chrissy Frazier Neutrophils/100 WBC (Bld) 72.2 % Normal 43.0-75.0 [facility] Comment on above: Performed By: #### C BC ####[facility] Toebyitzuc32119[address] [place], [place] [address]Dr. Chrissy Frazier Platelet mean volume (Bld) [Entitic vol] 10.1 fL Normal 9.5-13.5 [facility] Comment on above: Performed By: #### C BC ####[facility] Llywmimrou8228 [place] [id number]. Chrissy Frazier PLT 329 103/ul Normal 150-450 [facility] Comment on above: Performed By: #### C BC ####[facility] Kvsdithzds8759 [place] [id number]. Chrissy Frazier RBC 5.19 106/ul Normal 4.70-6.10 [facility] Comment on above: Performed By: #### C BC ####[facility] Krmachlkxo2715 [place] [id number]. Chrissy Frazier WBC 10.8 103/ul Normal 4.0-11.0 [facility] Comment on above: Performed By: #### C BC ####[facility] Meckytrvas0617 [place] [address]Dr. Chrissy Frazier LIPASEon 03-29-2022 Lipase [Catalytic activity/Vol] 58.0 U/L Critically low 73.0-393.0 [facility] Comment on above: Performed By: #### L TERRENCE VICTORIA ####[facility] Mmviwfxkzn0117 [place] [address]Dr. Chrissy Frazier NM HEPATOBILIARY SCAN W EFon 03-29-2022 NM HEPATOBILIARY SCAN W EF Normal [facility] PROF 14(COMP METB)on 022 Albumin [Mass/Vol] 3.8 g/dL Normal 3.4-5.0 [facility] Comment on above: Performed By: #### C MP ####[facility] Scsyjfrboq1751 [place] [address]Dr. Chrissy Frazier Albumin/Globulin [Mass ratio] 1.0 {ratio} Normal [facility] Comment on above: Performed By: #### C MP ####[facility] Zbjhkdaong9561 [place] [id number]. Tishrowan Frazier ALP [Catalytic activity/Vol] 69 U/L Normal 46-116 [facility] Comment on above: Performed By: #### C MP ####[facility] Rosquqhgro7160 [place] [address]Dr. Chrissy Frazier ALT [Catalytic activity/Vol] 117 U/L Critically high 16-63 [facility] Comment on above: Performed By: #### C MP ####[facility] Sawbwcefzf1732 [place] [id number]. Chrissy Frazier Anion gap [Moles/Vol] 16.7 mmol/L Normal [facility] Comment on above: Performed By: #### C MP ####[facility] Xswzvzqyvn5072 [place] [id number]. Chrissy Frazier AST [Catalytic activity/Vol] 77 U/L Critically high 15-37 [facility] Comment on above: Performed By: #### C MP ####[facility] Qgaritsrqk9155 [place] [address]Dr. Chrissy Freddie Bilirubin [Mass/Vol] 1.5 mg/dL Critically high 0.2-1.0 [facility] Comment on above: Performed By: #### C MP ####[facility] Zrxkyjkihl4357 [place] [address]Dr. Tishrowan Freddie Calcium [Mass/Vol] 8.1 mg/dL Critically low 8.5-10.1 [facility] Comment on above: Performed By: #### C MP ####[facility] Eggchptajf2153 [place] [address]Dr. Chrissy Freddie Chloride [Moles/Vol] 101 mmol/L Normal 98-107 [facility] Comment on above: Performed By: #### C MP ####[facility] Qohvibpnih4170 [place] [id number]. Chrissy Freddie CO2 [Moles/Vol] 24.5 mmol/L Normal 21.0-32.0 [facility] Comment on above: Performed By: #### C MP ####[facility] Ucpgpeliik6599 [place] [id number]. Chrissy Freddie Creatinine [Mass/Vol] 1.17 mg/dL Normal 0.70-1.30 [facility] Comment on above: Performed By: #### C MP ####[facility] Hqsuhdcdvw4853 [place] [address]Dr. Chrissy Freddie EGFR-AF IRANIAN >60 Normal >=60 [facility] Comment on above: Performed By: #### C MP ####[facility] Tyulwannbn7579 [place] [address]Dr. Chrissy Frazier EGFR-NON AF IRANIAN >60 Normal >=60 [facility] Comment on above: Performed By: #### C MP ####[facility] Vbpclbjnrm3589 [place] [id number]. Chrissy Frazier Globulin (S) [Mass/Vol] 3.9 g/dL Normal [facility] Comment on above: Performed By: #### C MP ####[facility] Ceahupoait9466 [place] [address]Dr. Chrissy Frazier Glucose [Mass/Vol] 104 mg/dL Normal 74-106 [facility] Comment on above: Performed By: #### C MP ####[facility] Hxbghizapp1734 [place] [address]Dr. Chrissy Frazier Potassium [Moles/Vol] 3.2 mmol/L Critically low 3.5-5.1 [facility] Comment on above: Performed By: #### C MP ####[facility] Cuzixnmpxp8585 [place] [address]Dr. Chrissy Frazier Protein [Mass/Vol] 7.7 g/dL Normal 6.4-8.2 [facility] Comment on above: Performed By: #### C MP ####[facility] Laopcrqbfn3166 [place] [address]Dr. Chrissy Frazier Sodium [Moles/Vol] 139 mmol/L Normal 136-145 [facility] Comment on above: Performed By: #### C MP ####[facility] Zykothptvt5044 [place] [address]Dr. Chrissy Frazier Urea nitrogen [Mass/Vol] 11.0 mg/dL Normal 7.0-18.0 [facility] Comment on above: Performed By: #### C MP ####[facility] Drjeogbdzx4846 [place] [address]Dr. Chrissy Frazier Urea nitrogen/Creatinine [Mass ratio] 9.4 mg/mg Normal [facility] Comment on above: Performed By: #### C MP ####[facility] Iqsqrrjhkq5232 [place] [address]Dr. Chrissy Frazier US SINGLE QUAD RT UPPERon US SINGLE QUAD RT UPPER Normal [facility] AMMONIAon 03-28-2022 Ammonia (P) [Moles/Vol] 12 umol/L Normal 11-32 [facility] Comment on above: Performed By: #### A MM ####[facility] Dqipetelyo4838 [place] [address]Dr. Chrissy Frazier CBC AUTO DIFFon 03-28-2022 BASO # 0.0 103/ul Normal 0.0-0.1 [facility] Comment on above: Performed By: #### C BC ####[facility] Vmepnwoxxq379[address] [place], [place] [address]Dr. Chrissy Frazier Basophils/100 WBC (Bld) 0.1 % Critically low 0.2-2.0 [facility] Comment on above: Performed By: #### C BC ####[facility] Xfoburmloy7825[address] [place], [place] [address]Dr. Chrissy Frazier EO # 0.0 103/ul Normal 0.0-0.7 [facility] Comment on above: Performed By: #### C BC ####[facility] Pvewdmyyvc007[address] [place], [place] [address]Dr. Chrissy Frazier Eosinophils/100 WBC (Bld) 0.0 % Critically low 0.9-7.0 [facility] Comment on above: Performed By: #### C BC ####[facility] Jqnscsbusf699[address] [place], [place] [address]Dr. Chrissy Frazier Erythrocyte distribution width (RBC) [Ratio] 14.0 % Normal 11.0-15.0 [facility] Comment on above: Performed By: #### C BC ####[facility] Bbiqdnwvcl1804[address] [place], [place] [address]Dr. Chrissy Frazier Hematocrit (Bld) [Volume fraction] 44.2 % Normal 42.0-54.0 [facility] Comment on above: Performed By: #### C BC ####[facility] Fopfjxayrh201[address] [place], [place] [address]Dr. Chrissy Freddie Hemoglobin (Bld) [Mass/Vol] 14.7 g/dL Normal 14.0-18.0 [facility] Comment on above: Performed By: #### C BC ####[facility] Tfgbodnklz4860 [place] [address]Dr. Tishrowan Frazier IG # 0.10 10e3/ul Critically high 0.00-0.03 [facility] Comment on above: Performed By: #### C BC ####[facility] Jkslfitanf7851 [place] [address]Dr. Chrissy Frazier IG % 0.5 % Normal 0.0-0.5 [facility] Comment on above: Performed By: #### C BC ####[facility] Plsnhcbcux7992 [place] [address]Dr. Chrissy Frazier LYMPH # 2.6 103/ul Normal 1.2-3.8 [facility] Comment on above: Performed By: #### C BC ####[facility] Ksajkbxihs9503 [place] [address]Dr. Chrissy Frazier Lymphocytes/100 WBC (Bld) 13.8 % Critically low 20.5-60.0 [facility] Comment on above: Performed By: #### C BC ####[facility] Otjvoceivq8915 [place] [address]Dr. Tishrowan Frazier MANUAL DIFF REQ NO Normal [facility] Comment on above: Performed By: #### C BC ####[facility] Fnjrdydbvl8906 [place] [address]Dr. Chrissy Freddie MCH (RBC) [Entitic mass] 29.0 pg Normal 25.9-34.0 [facility] Comment on above: Performed By: #### C BC ####[facility] Nvyylknana0811 [place] [address]Dr. Chrissy Freddie MCHC (RBC) [Mass/Vol] 33.3 g/dL Normal 29.9-35.2 [facility] Comment on above: Performed By: #### C BC ####[facility] Szvskfardh3718 [place] [address]Dr. Chrissy Freddie MCV (RBC) [Entitic vol] 87.2 fL Normal 80.0-94.0 [facility] Comment on above: Performed By: #### C BC ####[facility] Emtomxntaa6978 [place] [id number]. Chrissy Frazier MONO # 1.1 103/ul Critically high 0.3-0.8 [facility] Comment on above: Performed By: #### C BC ####[facility] Hgkkhwpjkm1119 [place] [address]Dr. Chrissy Frazier Monocytes/100 WBC (Bld) 5.9 % Normal 1.7-12.0 [facility] Comment on above: Performed By: #### C BC ####[facility] Mssivqthlh957[address] [place], [place] [address]Dr. Chrissy Freddie NEUT # 15.1 103/ul Critically high 1.4-6.5 [facility] Comment on above: Performed By: #### C BC ####[facility] Ufgujjvfig273[address] [place], [place] [address]Dr. Tishrowan Frazier Neutrophils/100 WBC (Bld) 79.7 % Critically high 43.0-75.0 [facility] Comment on above: Performed By: #### C BC ####[facility] Jmgzsngefr5411 [place] [address]Dr. Chrissy Frazier Platelet mean volume (Bld) [Entitic vol] 10.3 fL Normal 9.5-13.5 [facility] Comment on above: Performed By: #### C BC ####[facility] Ukytygahbg4413[address] [place], [place] [address]Dr. Chrissy Frazier PLT 358 103/ul Normal 150-450 [facility] Comment on above: Performed By: #### C BC ####[facility] Rxmlgntzwy[address] [place], [place] [address]Dr. Chrissy Frazier RBC 5.07 106/ul Normal 4.70-6.10 [facility] Comment on above: Performed By: #### C BC ####[facility] Jazqvyajiv[address] [place], [place] [address]Dr. Chrissy Frazier WBC 18.9 103/ul Critically high 4.0-11.0 [facility] Comment on above: Performed By: #### C BC ####[facility] Hlcdsztsgt0928 [place] [address]DrNancy Frazier PROF 14(COMP METB)on 022 Albumin [Mass/Vol] 3.9 g/dL Normal 3.4-5.0 [facility] Comment on above: Performed By: #### C MP ####[facility] Wpyrtdujul5316 [place] [address]Dr. Chrissy Frazier Albumin/Globulin [Mass ratio] 1.1 {ratio} Normal [facility] Comment on above: Performed By: #### C MP ####[facility] Nebnjyrtbz8926 [place] [address]Dr. Chrissy Frazier ALP [Catalytic activity/Vol] 65 U/L Normal 46-116 [facility] Comment on above: Performed By: #### C MP ####[facility] Vuzpwlhany[address] [place], [place] [address]Dr. Chrissy Frazier ALT [Catalytic activity/Vol] 46 U/L Normal 16-63 [facility] Comment on above: Performed By: #### C MP ####[facility] Iisdkdtoao738[address] [place], [place] [address]Dr. Chrissy Frazier Anion gap [Moles/Vol] 13.2 mmol/L Normal [facility] Comment on above: Performed By: #### C MP ####[facility] Sisicinmcq0132[address] [place], [place] [address]DrNancy Frazier AST [Catalytic activity/Vol] 33 U/L Normal 15-37 [facility] Comment on above: Performed By: #### C MP ####[facility] Vupwjkqedh[address] [place], [place] [address]Dr. Chrissy Frazier Bilirubin [Mass/Vol] 0.8 mg/dL Normal 0.2-1.0 [facility] Comment on above: Performed By: #### C MP ####[facility] Quhjjucwfj755[address] [place], [place] [address]Dr. Chrissy Frazier Calcium [Mass/Vol] 8.1 mg/dL Critically low 8.5-10.1 Th [facility] Comment on above: Performed By: #### C MP ####[facility] Crdnfpckvh4632 [place] [address]Dr. Chrissy Frazier Chloride [Moles/Vol] 102 mmol/L Normal 98-107 [facility] Comment on above: Performed By: #### C MP ####[facility] Nwdbljkhab2699 [place] [address]Dr. Chrissy Frazier CO2 [Moles/Vol] 24.0 mmol/L Normal 21.0-32.0 [facility] Comment on above: Performed By: #### C MP ####[facility] Fupapzgtsp[address] [place], [place] [address]Dr. Chrissy Frazier Creatinine [Mass/Vol] 1.26 mg/dL Normal 0.70-1.30 [facility] Comment on above: Performed By: #### C MP ####[facility] Qhmxzmfapt[address] [place], [place] [address]Dr. Chrissy Frazier EGFR-AF IRANIAN >60 Normal >=60 [facility] Comment on above: Performed By: #### C MP ####[facility] Soexoojslp[address] [place], [place] [address]Dr. Chrissy Frazier EGFR-NON AF IRANIAN >60 Normal >=60 [facility] Comment on above: Performed By: #### C MP ####[facility] [address] [place] [address]Dr. Chrissy Frazier Globulin (S) [Mass/Vol] 3.7 g/dL Normal [facility] Comment on above: Performed By: #### C MP ####[facility] [address]ilgvlkwr[address] [place] [address]Dr. Chrissy Frazier Glucose [Mass/Vol] 119 mg/dL Critically high 74-106 [facility] Comment on above: Performed By: #### C MP ####[facility] Qvldohkbtj[address] [place] [address]Dr. Chrissy Frazier Potassium [Moles/Vol] 3.2 mmol/L Critically low 3.5-5.1 [facility] Comment on above: Performed By: #### C MP ####[facility] Pfleytlmpp40[address] [place] [address]Dr. Chrissy Frazier Protein [Mass/Vol] 7.6 g/dL Normal 6.4-8.2 [facility] Comment on above: Performed By: #### C MP ####[facility] Yvpqeifmii[address] [place] [address]Dr. Chrissy Frazier Sodium [Moles/Vol] 136 mmol/L Normal 136-145 [facility] Comment on above: Performed By: #### C MP ####[facility] Sxdzbbxnks[address] [place], [place] [address]Dr. Chrissy Frazier Urea nitrogen [Mass/Vol] 14.0 mg/dL Normal 7.0-18.0 [facility] Comment on above: Performed By: #### C MP ####[facility] Mgagxlbzbq11[address] [place], [place] [address]Dr. Chrissy Frazier Urea nitrogen/Creatinine [Mass ratio] 11.1 mg/mg Normal [facility] Comment on above: Performed By: #### C MP ####[facility] Giidfreblw[address] [place], [place] [address]Dr. Chrissy Freddie CBC W MANUAL DIFFon 03-27-20 22 ATYPICAL LYMPH # Normal [facility] Comment on above: Performed By: #### C BCMAN ####[facility] Mnpjopkifs[address] [place], [place] [address]Dr. Chrissy Frazier ATYPICAL LYMPH % Normal [facility] Comment on above: Performed By: #### C BCMAN ####[facility] Ftigubitzj[address] [place], [place] [address]Dr. Chrissy Frazier BAND # 0.0 103/ul Normal 0.0-0.3 [facility] Comment on above: Performed By: #### C BCMAN ####[facility] G[address]zcqvkrmp[address] [place] [address]Dr. Chrissy Frazier BAND % 0 % Normal 0-5 [facility] Comment on above: Performed By: #### C BCMAN ####[facility] Vmuosgxtkr[address] [place] [id number]. Chrissy Frazier BASOM # 0.00 103/ul Normal 0.00-0.10 [facility] Comment on above: Performed By: #### C BCMAN ####[facility] Wlmropihbc6581 [place] [address]Dr. Chrissy Frazier BASOM % 0.0 % Critically low 0.2-2.0 [facility] Comment on above: Performed By: #### C BCMAN ####[facility] Pfbwwwyewy[address] [place] [address]Dr. Chrissy Frazier BLAST # Normal [facility] Comment on above: Performed By: #### C BCLEANDRO ####[facility] Xqvaysotiq[address] [place] [address]Dr. Chrissy Frazier BLAST % Normal [facility] Comment on above: Performed By: #### C BCLEANDRO ####[facility] Ywqoilirrh[address] [place], [place] [address]Dr. Chrissy Frazier CORRECTED WBC Normal 4.0-11.0 [facility] Comment on above: Performed By: #### C BCLEANDRO ####[facility] Kwftktlrlo[address] [place], [place] [address]Dr. Chrissy Frazier EOS # 0.00 103/ul Normal 0.00-0.70 [facility] Comment on above: Performed By: #### C BCLEANDRO ####[facility] Nawudqtndi[address] [place] [address]Dr. Chrissy Frazier EOS% 0.0 % Critically low 0.9-7.0 [facility] Comment on above: Performed By: #### C BCLEANDRO ####[facility] Hvhizthnwi84[address] [place] [address]Dr. Chrissy Frazier HCT 47.3 % Normal 42.0-54.0 [facility] Comment on above: Performed By: #### C BCLEANDRO ####[facility] W[address]obymtwsn[address] [place], [place] [address]Dr. Chrissy Frazier HGB 16.4 g/dl Normal 14.0-18.0 [facility] Comment on above: Performed By: #### C ANTONETTE ####[facility] Qtjbphfump[address] [place], [place] [address]Ge. Chrissy Frazier LYMPHM # 2.31 103/ul Normal 1.20-3.80 [facility] Comment on above: Performed By: #### Silverio WHITMAN ####[facility] Rossxfnoqn5230 [place], [place] [address]Fj. Chrissy Frazier LYMPHM% 9.0 % Critically low 20.5-60.0 [facility] Comment on above: Performed By: #### C ANTONETTE ####[facility] Mvtnhewiss9444 [place] [id number]. Chrissy Frazier MCH 28.6 pg Normal 25.9-34.0 [facility] Comment on above: Performed By: #### Silverio WHITMAN ####[facility] Sjmzdcrscs8825 [place] [address]Dr. Chrissy Frazier MCHC 34.7 g/dl Normal 29.9-35.2 [facility] Comment on above: Performed By: #### Silverio WHITMAN ####[facility] Hgtgxppyfz3845 [place] [address]Dr. Chrissy Frazier MCV 82.4 fL Normal 80.0-94.0 [facility] Comment on above: Performed By: #### Silverio WHITMAN ####[facility] Hfdvolmzbv4209 [place] [address]Dr. Chrissy Frazier METAMYELOCYTE # Normal [facility] Comment on above: Performed By: #### Silverio WHITMAN ####[facility] Rgsvnurjdq1219 [place] [address]Dr. Chrissy Frazier METAMYELOCYTE % Normal [facility] Comment on above: Performed By: #### C ANTONETTE ####[facility] Mlebovhtmv6078 [place] [address]Dr. Chrissy Frazier MONOM# 3.85 103/ul Critically high 0.30-0.80 [facility] Comment on above: Performed By: #### Silverio WHITMAN ####[facility] Omelrjyiwp35[address] [place] [address]Dr. Chrissy Frazier MONOM% 15.0 % Critically high 1.7-12.0 [facility] Comment on above: Performed By: #### C ANTONETTE ####[facility] Aafjsjioqy44[address] [place] [address]Dr. Chrissy Frazier MPV 10.6 fL Normal 9.5-13.5 [facility] Comment on above: Performed By: #### C ANTONETTE ####[facility] Zfaqradofh4243 [place] [address]Dr. Chrissy Frazier MYELOCYTE # Normal [facility] Comment on above: Performed By: #### C ANTONETTE ####[facility] Gfcvfduezw4622 [place] [address]Dr. Chrissy Frazier MYELOCYTE % Normal [facility] Comment on above: Performed By: #### C ANTONETTE ####[facility] Zprwylmmqo5965 [place] [address]Dr. Chrissy Frazier NRBC Normal [facility] Comment on above: Performed By: #### C ANTONETTE ####[facility] Jmalscthrh0804 [place] [address]Dr. Chrissy Frazier PLT 471 103/ul Critically high 150-450 [facility] Comment on above: Performed By: #### C ANTONETTE ####[facility] Oljgzhihvb4149 [place] [address]Dr. Chrissy Frazier RBC 5.74 106/ul Normal 4.70-6.10 [facility] Comment on above: Performed By: #### C ANTONETTE ####[facility] Ryxlcyxzvo7971 [place] [address]Dr. Chrissy Frazier RDW 13.7 % Normal 11.0-15.0 [facility] Comment on above: Performed By: #### C ANTONETTE ####[facility] Qhjahuevqe9623 [place] [address]Dr. Chrissy Frazier SEG # 19.53 103/ul Critically high 1.40-6.50 [facility] Comment on above: Performed By: #### C ANTONETTE ####[facility] Htyeboqvxn28[address] [place] [address]Dr. Tishrowan Frazier SEG % 76.0 % Critically high 43.0-75.0 [facility] Comment on above: Performed By: #### C BCMAN ####[facility] Ckdgjwimsy20[address] [place] [address]Dr. Tishrowan Frazier TOXIC GRANULATION SLIGHT Normal [facility] Comment on above: Result Comment: few vacoules Performed By: #### C BCLEANDRO ####[facility] Otzjqvvyqw7[address] [place] [address]Dr. Chrissy Frazier WBC 25.7 103/ul Critically high 4.0-11.0 [facility] Comment on above: Performed By: #### C ANTONETTE ####[facility] Ldbuiwpihj89[address] [place] [address]Dr. Chrissy Frazier LACTATE/LACTIC ACIDon 2021 Lactate [Moles/Vol] 2.4 mmol/L Critically high 0.4-1.9 [facility] Comment on above: Performed By: #### L ACT ####[facility] Ugvuetvmbh06[address] [place] [address]Dr. Chrissy Frazier Lactate [Moles/Vol] 3.5 mmol/L Critically high 0.4-1.9 [facility] Comment on above: Performed By: #### L ACT ####[facility] Lvgakifuka38[address] [place] [address]Dr. Chrissy Frazier LIPASEon 03-27-2022 Lipase [Catalytic activity/Vol] 43.0 U/L Critically low 73.0-393.0 [facility] Comment on above: Performed By: #### C MP, LIPA ####[facility] Sfktjdvvmw4[address] [place] [address]Dr. Chrissy Frazier PROF 14(COMP METB)on 022 Albumin [Mass/Vol] 4.7 g/dL Normal 3.4-5.0 [facility] Comment on above: Performed By: #### C MP, LIPA ####[facility] Jmnhukicrl[address] [place] [address]Dr. Chrissy Frazier Albumin/Globulin [Mass ratio] 1.1 {ratio} Normal [facility] Comment on above: Performed By: #### C MP, LIPA ####[facility] Csejqumhav0579 [place] [address]Dr. Chrissy Frazier ALP [Catalytic activity/Vol] 69 U/L Normal 46-116 [facility] Comment on above: Performed By: #### C MP, LIPA ####[facility] Ceocmxjeqj5[address] [place] [address]Dr. Chrissy Frazier ALT [Catalytic activity/Vol] 47 U/L Normal 16-63 [facility] Comment on above: Performed By: #### C MP, LIPA ####[facility] T[address]xqjdhjxx[address] [place], [place] [address]Dr. Chrissy Freddie Anion gap [Moles/Vol] 23.2 mmol/L Normal [facility] Comment on above: Performed By: #### C MP, LIPA ####[facility] Zhzlgmiczy[address] [place], [place] [address]Dr. Chrissy Freddie AST [Catalytic activity/Vol] 23 U/L Normal 15-37 [facility] Comment on above: Performed By: #### C MP, LIPA ####[facility] Cgezcslyce89[address] [place], [place] [address]Dr. Chrissy Freddie Bilirubin [Mass/Vol] 0.7 mg/dL Normal 0.2-1.0 [facility] Comment on above: Performed By: #### C MP, LIPA ####[facility] Immetzgqjy7810[address] [place], [place] [address]Dr. Chrissy Freddie Calcium [Mass/Vol] 9.2 mg/dL Normal 8.5-10.1 [facility] Comment on above: Performed By: #### C MP, LIPA ####[facility] Whagffcyob[address] [place], [place] [address]Dr. Tishrowan Freddie Chloride [Moles/Vol] 97 mmol/L Critically low 98-107 [facility] Comment on above: Performed By: #### C MP, LIPA ####[facility] Wnqxvncuxk[address] [place], [place] [address]Dr. Yirowan Frazier CO2 [Moles/Vol] 18.2 mmol/L Critically low 21.0-32.0 [facility] Comment on above: Performed By: #### C MP, LIPA ####[facility] Lwgntnpctk9808 [place] [address]Dr. Chrissy Frazier Creatinine [Mass/Vol] 1.77 mg/dL Critically high 0.70-1.30 [facility] Comment on above: Performed By: #### C MP, LIPA ####[facility] Iiaptetfbp[address] [place], [place] [address]Dr. Chrissy Frazier EGFR-AF IRANIAN 54 mL/min/1.73m2 Critically low >=60 [facility] Comment on above: Performed By: #### C MP, LIPA ####[facility] Imnhpqvhdf220[address] [place], [place] [address]Dr. Chrissy Frazier EGFR-NON AF IRANIAN 45 mL/min/1.73m2 Critically low >=60 [facility] Comment on above: Performed By: #### C MP, LIPA ####[facility] Hijxnddrfb22[address] [place], [place] [address]Dr. Chrissy Frazier Globulin (S) [Mass/Vol] 4.4 g/dL Normal [facility] Comment on above: Performed By: #### C MP, LIPA ####[facility] Lhokuebzyp46[address] [place], [place] [address]Dr. Chrissy Frazier Glucose [Mass/Vol] 131 mg/dL Critically high 74-106 [facility] Comment on above: Performed By: #### C MP, LIPA ####[facility] Mjbqlsuofa[address] [place], [place] [address]Dr. Chrissy Frazier Potassium [Moles/Vol] 3.4 mmol/L Critically low 3.5-5.1 [facility] Comment on above: Performed By: #### C MP, LIPA ####[facility] Kkkkxtrpoj[address] [place], [place] [address]Dr. Chrissy Frazier Protein [Mass/Vol] 9.1 g/dL Critically high 6.4-8.2 [facility] Comment on above: Performed By: #### C MP, LIPA ####[facility] Hpnjcxnvif5689 [place], [place] [address]Mt. Chrissy Frazier Sodium [Moles/Vol] 135 mmol/L Critically low 136-145 [facility] Comment on above: Performed By: #### C MP, LIPA ####[facility] Yycsjtlnko6681 [place], [place] [address]Ve. Chrissy Frazier Urea nitrogen [Mass/Vol] 19.0 mg/dL Critically high 7.0-18.0 [facility] Comment on above: Performed By: #### C MANA, LIPA ####[facility] Qrzjxdvjtr47[address] [place] [address]Dr. Chrissy Frazier Urea nitrogen/Creatinine [Mass ratio] 10.7 mg/mg Normal [facility] Comment on above: Performed By: #### C MANA, LIPA ####[facility] Fnjpkmfyts9384 [place] [address]Dr. Chrissy Frazier BMPon 11-03-2020 Anion gap [Moles/Vol] 14 mmol/L Normal 6-16 [facility] Comment on above: Performed By: #### 2 [id number], [id number], [id number] #### [facility] [address] [place] [address] Calcium [Mass/Vol] 9.0 mg/dL Normal 8.9-11.1 [facility] Comment on above: Performed By: #### 2 [id number], [id number], [id number] #### [facility] [address] [place] [address] Chloride [Moles/Vol] 104 mmol/L Normal 101-111 [facility] Comment on above: Performed By: #### 2 [id number], [id number], [id number] #### [facility] [address] [place] [address] CO2 [Moles/Vol] 21 mmol/L Normal 21-31 [facility] Comment on above: Performed By: #### 2 094788, [id number], [id number] #### [facility] [address] [place] [address] Creatinine [Mass/Vol] 1.3 mg/dL Normal 0.5-1.3 [facility] Comment on above: Performed By: #### 2 567150, [id number], [id number] #### [facility] [address] [place] [address] Glucose [Mass/Vol] 111 mg/dL Normal 55-199 [facility] Comment on above: Result Comment: If t his glucose result represents a fasting glucose, interpretation should refer to the following reference range: 55-99 mg/dL Performed By: #### 2 601639, [id number], [id number] #### [facility] [address] [place] [address] Potassium [Moles/Vol] 2.9 mmol/L Low 3.5-5.3 [facility] Comment on above: Performed By: #### 2 607495, [id number], [id number] #### [facility] [address] [place] [address] Sodium [Moles/Vol] 136 mmol/L Normal 135-145 [facility] Comment on above: Performed By: #### 2 220238, 1192380, [id number] #### [facility] [address] [place] [address] Urea nitrogen [Mass/Vol] 14 mg/dL Normal 5-21 [facility] Comment on above: Performed By: #### 2 151579, 8708424, [id number] #### [facility] [address] [place] [address] Urea nitrogen/Creatinine [Mass ratio] 11 No Units Normal 10-20 [facility] Comment on above: Performed By: #### 2 642564, [id number], [id number] #### [facility] [address] [place] [address] Lipase Levelon 11-03-2020 Lipase [Catalytic activity/Vol] 66 unit/L High 13-58 [facility] Comment on above: Performed By: #### 2 106945, [id number], [id number] #### [facility] [address] [place] [address] Physician Orderon 11-03-2020 Physician Order [id number] 3#1.00CD:127 Normal [facility] eGFRon 11-03-2020 GFR/1.73 sq M predicted among blacks MDRD (S/P/Bld) [Vol rate/Area] mL/min/{1.73_m2} Normal >=59 [facility] Comment on above: Order Comment: Order added by Discern Expert. Result Comment: eGFR is race adjusted. AA=. Performed By: #### 2 963294, [id number], [id number] #### [facility] [address] [place] [address] GFR/1.73 sq M predicted among non-blacks MDRD (S/P/Bld) [Vol rate/Area] mL/min/{1.73_m2} Normal >=59 [facility] Comment on above: Order Comment: Order added by Discern Expert. Result Comment: Hand Booked [employer] lindsay kidney disease could be indicated at eGFR's of less than 60 mL/min/1.73m2. Kidney failure is indicated at less than 15 mL/min/1.73m2. Performed By: #### 2 651405, [id number], [id number] #### [facility] [address] [place] [address] Encounters Encounter Date Encounter Type Care Provider Facility Start: 05-16-2024 End: 05-16-2024 ambulatory TUNG NORTHEIM Not Available Start: 03-07-2024 End: 03-07-2024 ambulatory TUNG NORTHEIM Not Available Start: 03-30-2023 ambulatory Luis Angel Muniz cility:[facility] Start: 01-03-2023 End: 01-04-[address] MELODY MARIO . Facility: Start: 01-03-2023 End: 01-04-2023 ambulatory RAQUEL BANKS Facility:[facility] Start: 12-29-2022 End: 12-30-[address] MELODY MARIO . Facility:[facility] Start: 12-13-2022 End: 12-14-2022 ambulatory [facility] Start: 11-24-2022 End: 11-24-2022 ambulatory [facility] Start: 11-16-2022 End: 11-17-[address] [...] Date Payer Category Payer Self-pay 1990 Unknown [id number] 01.06. [id number] 1990 Unknown [id number] 1990 Unknown [id number] 0.1.950034.3.579.2 1990 Unknown [id number] 0.1.099260.3.579.2593 1990 Unknown [id number] ..[id number] 0.1.524921.3.579.259 1990 Unknown [id number] 2.16.84 0.1.968326.3.579.2.593 1990 Unknown [id number] 2.16.84 0.1.635432.3.579.2.593 1990 Unknown [id number] 2.16.84 0.1.829012.3.579.2.593 1990 Unknown [id number] 2.16.84 0.1.807305.3.579.2.593 1990 Unknown [id number] 2.16.84 0.1.789498.3.579.2.593 1990 Unknown [id number] 2.16.84 0.1.814742.3.579.2.593 1990 Unknown [id number] 2.16.84 0.1.332065.3.579.2.593 1990 Unknown [id number] 2.16.84 0.1.509742.3.579.2.593 1990 Unknown [id number] 2.16.84 0.1.506056.3.579.2.1259 1990 Unknown [id number] 2.16.84 0.1.662145.3.579.2.1259 1959 Private Health Insurance [id number] Unknown [id number] 2.16.8 40.1.179915.3.579.2.531 Progress note 11-24-2022 Note Date & Type [...] factor modification -Plan (more content not included)... [facility] Progress note 11-24-2022 Note Date [...] All other systems reviewed and are negative. [facility] Summary Purpose Family History No [...] DATE CREATED AUTHOR 11/04/[address] [facility] DATE CREATED AUTHOR AUTHOR'S ORGANIZ ATION 01/08/2023 [facility] DATE CREATED AUTHOR AUTHOR'S ORGANIZ ATION 02/07/2023 [facility] DATE CREATED AUTHOR AUTHOR'S ORGANIZ ATION 04/01/2023 [facility] DATE CREATED AUTHOR AUTHOR'S ORGANIZ ATION 05/17/2024 [facility] FOR RECORDS PERTAINING TO PATIENTS WHO ARE [...] BE BASED ON THE PRIMARY CLINICAL RECORDS. [employer] provides no warranty or guarantee of the accuracy or completeness of information in this document.
== END 2024-07-10 10:21 | disposition home or self-care (01) ==
LOC: EC 10:20
PROVIDERS: PCP Family Medicine; Visit Provider Podiatrist Foot & Ankle Surgery
DX: M79.671 Pain in right foot (principal); M24.674 Ankylosis, right foot
CPT/HCPCS: 73630

== ENCOUNTER 2024-07-15 06:28 | Emergency (ER) | payer OTHER, SELFPAY ==
--- OUTSIDE RECORDS SUMMARY | 2024-07-15 06:35 | XMS_ITS | CCD ---
Author Organization [facility] Care Team Providers Care Traveling Inventory Associate Name Role Phone RAQUEL BANKS Referring Unavailable [...] to adverse reactions to drug (disorder) 09-28-20 [facility] Repository (1 source) Sulfamethoxazole / Trimethoprim; Translations: [SULFAMETHOXAZOLE-TR IMETHOPRIM] Drug Allergy 01-27-20 [facility] Repository (1 source) Clarithromycin Drug Allergy [facility] Repository (1 source) Sulfamethoxazole / Trimethoprim Drug Allergy 05-27-20 17 [facility] Repository (1 source) Sulfamethoxazole Drug Allergy 03-20-20 [facility] Repository (1 source) Trimethoprim Drug Allergy 03-20-20 [facility] Repository Problems Active Problems [...] 11-16-2022 Episodic Other aftercare (1 source) 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 Comment on above: Result Comment: Nega tive <0.80 Equivocal 0.80 - 0.89 Positive >0.89 Performed By: #### H PYLLC ####[facility] [address]mszikxnt[address] [place] [address]Dr. Chrissy Frazier AMYLASEon 01-04-2023 Amylase [Catalytic activity/Vol] 34 U/L Normal 25-115 [facility] Comment on above: Performed By: #### A MY ####[facility] Kigjbynvol[address] [place], [place] [address]Dr. Chrissy Freddie CBC AUTO DIFFon 01-04-2023 BASO # 0.0 103/ul Normal 0.0-0.1 [facility] Comment on above: Performed By: #### C BC ####[facility] Oleiiqgrpz[address] [place], [place] [address]Dr. Chrissy Frazier Basophils/100 WBC (Bld) 0.1 % Critically low 0.2-2.0 [facility] Comment on above: Performed By: #### C BC ####[facility] Negbbdhklv[address] [place], [place] [address]Dr. Tishrowan Frazier EO # 0.0 103/ul Normal 0.0-0.7 [facility] Comment on above: Performed By: #### C BC ####[facility] Whkllpgstg[address] [place], [place] [address]Dr. Chrissy Frazier Eosinophils/100 WBC (Bld) 0.1 % Critically low 0.9-7.0 [facility] Comment on above: Performed By: #### C BC ####[facility] Egirjqdpvm40[address] [place], [place] [address]DrNancy Frazier Erythrocyte distribution width (RBC) [Ratio] 14.0 % Normal 11.0-15.0 [facility] Comment on above: Performed By: #### C BC ####[facility] Eoynbppqcb474[address] [place], [place] [address]Dr. Chrissy Frazier Hematocrit (Bld) [Volume fraction] 40.4 % Critically low 42.0-54.0 [facility] Comment on above: Performed By: #### C BC ####[facility] Qdffxhvche[address] [place] [address]Dr. Chrissy Frazier Hemoglobin (Bld) [Mass/Vol] 13.8 g/dL Critically low 14.0-18.0 [facility] Comment on above: Performed By: #### C BC ####[facility] Orxrybeiim60[address] [place] [address]Dr. Chrissy Freddie IG # 0.05 10e3/ul Critically high 0.00-0.03 [facility] Comment on above: Performed By: #### C BC ####[facility] Axmumcpwhj8[address] [place] [address]Dr. Tishrowan Frazier IG % 0.3 % Normal 0.0-0.5 [facility] Comment on above: Performed By: #### C BC ####[facility] Hivussunzy458[address] [place], [place] [address]Dr. Chrissy Frazier LYMPH # 1.7 103/ul Normal 1.2-3.8 [facility] Comment on above: Performed By: #### C BC ####[facility] Fherrxgalw1354 [place] [address]Dr. Chrissy Freddie Lymphocytes/100 WBC (Bld) 11.9 % Critically low 20.5-60.0 [facility] Comment on above: Performed By: #### C BC ####[facility] Uqijhlkpkk56[address] [place] [address]Dr. Chrissy Frazier MANUAL DIFF REQ NO Normal [facility] Comment on above: Performed By: #### C BC ####[facility] Solitxskay[address] [place] [id number]. Chrissy Freddie MCH (RBC) [Entitic mass] 29.3 pg Normal 25.9-34.0 [facility] Comment on above: Performed By: #### C BC ####[facility] Nurqwjtgvx8404 [place] [id number]. Tishrowan Frazier MCHC (RBC) [Mass/Vol] 34.2 g/dL Normal 29.9-35.2 [facility] Comment on above: Performed By: #### C BC ####[facility] Zojaemvtwe39[address] [place] [id number]. Chrissy Frazier MCV (RBC) [Entitic vol] 85.8 fL Normal 80.0-94.0 [facility] Comment on above: Performed By: #### C BC ####[facility] Oklikvjzlb5299 [place] [id number]. Chrissy Freddie MONO # 0.6 103/ul Normal 0.3-0.8 [facility] Comment on above: Performed By: #### C BC ####[facility] Uatkbpbfkb3832 [place] [address]Dr. Chrissy Freddie Monocytes/100 WBC (Bld) 4.2 % Normal 1.7-12.0 [facility] Comment on above: Performed By: #### C BC ####[facility] Pckxuuckis57[address] [place], [place] [address]Dr. Chrissy Frazier NEUT # 12.0 103/ul Critically high 1.4-6.5 [facility] Comment on above: Performed By: #### C BC ####[facility] Wcioiugqgs[address] [place], [place] [address]Dr. Tishrowan Frazier Neutrophils/100 WBC (Bld) 83.4 % Critically high 43.0-75.0 [facility] Comment on above: Performed By: #### C BC ####[facility] Gykjdzioze05[address] [place], [place] [address]Dr. Chrissy Freddie Platelet mean volume (Bld) [Entitic vol] 10.4 fL Normal 9.5-13.5 [facility] Comment on above: Performed By: #### C BC ####[facility] Yzltrymmbg24[address] [place], [place] [id number]. Chrissy Frazier PLT 313 103/ul Normal 150-450 [facility] Comment on above: Performed By: #### C BC ####[facility] Qrtdsdliya1784 [place] [id number]. Chrissy Frazier RBC 4.71 106/ul Normal 4.70-6.10 [facility] Comment on above: Performed By: #### C BC ####[facility] Ecngjzazqn0395 [place] [id number]. Chrissy Frazier WBC 14.4 103/ul Critically high 4.0-11.0 [facility] Comment on above: Performed By: #### C BC ####[facility] Wcdujkknat07[address] [place] [phone]. Chrissy Frazier CULTURE URINEon 01-04-2023 CULTURE URINE Culture Observations: NO GROWTH. Normal [facility] Comment on above: Performed By: #### U RCX ####[facility] Bhtgucncps[address] [place] [address]Dr. Chrissy Frazier DRUG SCREEN RAPID (URINE)on 01-04-2023 AMP Negative Normal NEGATIVE [facility] Comment on above: Performed By: #### D REYES, UAMIC ####[facility] Ytfqzvilgp01[address] [place] [address]Dr. Chrissy Frazier BAR Negative Normal NEGATIVE [facility] Comment on above: Performed By: #### D REYES, UAMIC ####[facility] Dhvvoedgbf[address] [place] [address]Dr. Chrissy Frazier BUP Negative Normal NEGATIVE [facility] Comment on above: Performed By: #### D CHAYAD, UAMIC ####[facility] Pubvvqfpae7209 [place] [address]Dr. Chrissy Frazier BZO Positive Abnormal NEGATIVE [facility] Comment on above: Performed By: #### D REYES, UAMIC ####[facility] Dvinhdeods1541 [place] [address]Dr. Chrissy Frazier LAUREN Negative Normal NEGATIVE [facility] Comment on above: Performed By: #### D REYES, UAMIC ####[facility] Nywwpxtria5216 [place] [address]Dr. Chrissy Frazier CUT-OFFS SEE BELOW Normal [facility] Comment on above: Result Comment: AMP [...] ng/mL Performed By: #### Amelie CHAMBERS, UAMIC ####[facility] Fvdgiatjpq[address] [place], [place] [address]Dr. [facility] DRUG CUT HEADER DRUG CLASS TEST SYSTEM CUT-OFF CONCENTRATIONS ARE FOLLOWS: Normal [facility] Comment on above: Performed By: #### Amelie CHAMBERS UAMIC ####[facility] Punlhuurbr[address] [place], [place] [address]Dr. Chrissy [facility] mAMP Negative Normal NEGATIVE [facility] Comment on above: Performed By: #### Amelie CHAMBERS UAMIC ####[facility] Jxykfuzydi1667[address] [place], [place] [address]Dr. [facility] MTD Negative Normal NEGATIVE [facility] Comment on above: Performed By: #### Amelie CHAMBERS, UAMIC ####[facility] Bhhtitzcir[address] [place], [place] [address]Dr. [facility] OPI Negative Normal NEGATIVE [facility] Comment on above: Performed By: #### Amelie CHAMBERS, UAMIC ####[facility] Vjgmbslhhq66[address] [place], [place] [address]Dr. [facility] OXY Negative Normal NEGATIVE [facility] Comment on above: Performed By: #### Amelie CHAMBERS, UAMIC ####[facility] Qlttrbucpm1409[address] [place], [place] [address]Dr. [facility] PCP Negative Normal NEGATIVE [facility] Comment on above: Performed By: #### Amelie CHAMBERS, UAMIC ####[facility] Pdeyygmvfb5416[address] [place], [place] [address]Dr. [facility] PPX Negative Normal NEGATIVE [facility] Comment on above: Performed By: #### D REYES UAMIC ####[facility] Czergxyibk1065 [place] [address]Dr. Chrissy Frazier TCA Positive Abnormal NEGATIVE [facility] Comment on above: Performed By: #### D REYES UAMIC ####[facility] Bvthokvcvm3523 [place] [address]Dr. Chrissy Frazier THC Positive Abnormal NEGATIVE [facility] Comment on above: Performed By: #### D REYES UAMIC ####[facility] Akohxiceqv10[address] [place] [address]Dr. Chrissy Frazier LIPASEon 01-04-2023 Lipase [Catalytic activity/Vol] 57.0 U/L Critically low 73.0-393.0 [facility] Comment on above: Performed By: #### L IPA ####[facility] Eqhmyipqif98[address] [place], [place] [address]Dr. Chrissy Frazier PROF 14(COMP METB)on 023 Albumin [Mass/Vol] 3.6 g/dL Normal 3.4-5.0 [facility] Comment on above: Performed By: #### C MP ####[facility] Wzvzewvvar[address] [place], [place] [address]Dr. Chrissy Frazier Albumin/Globulin [Mass ratio] 1.0 {ratio} Normal [facility] Comment on above: Performed By: #### C MP ####[facility] Hskvdhzryn[address] [place], [place] [address]Dr. Chrissy Frazier ALP [Catalytic activity/Vol] 67 U/L Normal 46-116 [facility] Comment on above: Performed By: #### C MP ####[facility] Qrfxuibhph95[address] [place], [place] [address]Dr. Chrissy Frazier ALT [Catalytic activity/Vol] 26 U/L Normal 16-63 [facility] Comment on above: Performed By: #### C MP ####[facility] Zhqobcrvrd6980 [place] [address]Dr. Chrissy Frazier Anion gap [Moles/Vol] 16.3 mmol/L Normal [facility] Comment on above: Performed By: #### C MP ####[facility] Eflvgzyiiw3286 [place] [id number]. Chrissy Frazier AST [Catalytic activity/Vol] 17 U/L Normal 15-37 [facility] Comment on above: Performed By: #### C MP ####[facility] Aedtuohrcw9816 [place] [id number]. Chrissy Frazier Bilirubin [Mass/Vol] 0.4 mg/dL Normal 0.2-1.0 [facility] Comment on above: Performed By: #### C MP ####[facility] Csiixvqnkz[address] [place], [place] [address]Dr. Chrissy Frazier Calcium [Mass/Vol] 8.7 mg/dL Normal 8.5-10.1 [facility] Comment on above: Performed By: #### C MP ####[facility] Cndjfkkhbm9839[address] [place], [place] [address]Dr. Chrissy Frazier Chloride [Moles/Vol] 106 mmol/L Normal 98-107 [facility] Comment on above: Performed By: #### C MP ####[facility] Yhohijjcxz9475[address] [place], [place] [address]Dr. Chrissy Frazier CO2 [Moles/Vol] 22.6 mmol/L Normal 21.0-32.0 [facility] Comment on above: Performed By: #### C MP ####[facility] Varqjoestw5330[address] [place], [place] [address]Dr. Chrissy Frazier Creatinine [Mass/Vol] 0.99 mg/dL Normal 0.70-1.30 [facility] Comment on above: Performed By: #### C MP ####[facility] Aelctuajhr1891 [place] [id number]. Chrissy Frazier EGFR-AF ICELANDIC >60 Normal >=60 [facility] Comment on above: Performed By: #### C MP ####[facility] Ucrqdsadqy9508 [place] [address]Dr. Chrissy Frazier EGFR-NON AF ICELANDIC >60 Normal >=60 [facility] Comment on above: Performed By: #### C MP ####[facility] Cjfnwrwjhi4796 [place] [address]Dr. Chrissy Frazier Globulin (S) [Mass/Vol] 3.6 g/dL Normal [facility] Comment on above: Performed By: #### C MP ####[facility] Thufqcrnuf1398 [place] [address]Dr. Chrissy Frazier Glucose [Mass/Vol] 138 mg/dL Critically high 74-106 [facility] Comment on above: Performed By: #### C MP ####[facility] Mzzmnxxpht4647 [place] [address]Dr. Chrissy Frazier Potassium [Moles/Vol] 3.9 mmol/L Normal 3.5-5.1 [facility] Comment on above: Performed By: #### C MP ####[facility] Lpfmomzdkz76[address] [place], [place] [address]Dr. Chrissy Frazier Protein [Mass/Vol] 7.2 g/dL Normal 6.4-8.2 [facility] Comment on above: Performed By: #### C MP ####[facility] Wqoxyforid420[address] [place], [place] [address]Dr. Chrissy Frazier Sodium [Moles/Vol] 141 mmol/L Normal 136-145 [facility] Comment on above: Performed By: #### C MP ####[facility] Rgszlbvbep99[address] [place], [place] [address]Dr. Chrissy Frazier Urea nitrogen [Mass/Vol] 10.0 mg/dL Normal 7.0-18.0 [facility] Comment on above: Performed By: #### C MP ####[facility] Obqeaxjbjr34[address] [place], [place] [address]Dr. Chrissy Frazier Urea nitrogen/Creatinine [Mass ratio] 10.1 mg/mg Normal [facility] Comment on above: Performed By: #### C MP ####[facility] Xgtupbbqus97[address] [place], [place] [address]Dr. Chirssy Frazier UA RANDOM W/MICROSCOPICon BACTERIA TRACE Abnormal NONE SEEN [facility] Comment on above: Performed By: #### D REYES, UAMIC ####[facility] Egwtrkielj2623 [place] [address]Dr. Chrissy Frazier Bilirubin Ql (U) Negative Normal NEGATIVE [facility] Comment on above: Performed By: #### Amelie CHAMBERS, UAMIC ####[facility] Tziwisrlad494[address] [place], [place] [address]Dr. Chrissy Frazier CAST NONE SEEN Normal NONE SEEN [facility] Comment on above: Performed By: #### Amelie CHAMBERS, UAMIC ####[facility] Byzdgvhbfr[address] [place], [place] [address]Dr. Chrissy Frazier Clarity (U) CLEAR Normal CLEAR [facility] Comment on above: Performed By: #### Amelie CHAMBERS, UAMIC ####[facility] Ozkqrykwfc5387[address] [place], [place] [address]Dr. Chrissy Frazier Color (U) YELLOW Normal YELLOW [facility] Comment on above: Performed By: #### Amelie CHAMBERS, UAMIC ####[facility] Wmpimuoefh[address] [place], [place] [address]Dr. Chrissy Frazier Crystals LM Nom (Urine sed) NONE SEEN Normal NONE SEEN [facility] Comment on above: Performed By: #### Amelie CHAMBERS, UAMIC ####[facility] Tduumvgwug[address] [place], [place] [address]Dr. Chrissy Frazier Epithelial cells LM Ql (Urine sed) NONE SEEN Normal NONE SEEN /RARE [facility] Comment on above: Performed By: #### Amelie CHAMBERS, UAMIC ####[facility] Hahgtqljkw8[address] [place], [place] [address]Dr. Chrissy Frazier Glucose Ql (U) Negative Normal NEGATIVE [facility] Comment on above: Performed By: #### D REYES, UAMIC ####[facility] Eexjtbwpns8[address] [place], [place] [address]Dr. Chrissy Frazier Hemoglobin Ql (U) Negative Normal NEGATIVE [facility] Comment on above: Performed By: #### Amelie CHAMBERS, UAMIC ####[facility] Ooxshqgtvf57[address] [place], [place] [address]Dr. Chrissy Frazier Ketones Ql (U) 15 mg/dl Abnormal NEGATIVE [facility] Comment on above: Performed By: #### Amelie CHMABERS UAMIC ####[facility] Pdncyznlyk3135 [place] [address]Dr. Chrissy Frazier LEUKOCYTES Negative Normal NEGATIVE [facility] Comment on above: Performed By: #### Amelie CHAMBERS UAMIC ####[facility] Bhjpwdjovh1066 [place] [address]Dr. Chrissy Frazier MUCOUS NONE SEEN Normal NONE SEEN [facility] Comment on above: Performed By: #### Amelei CHAMBERS UAMIC ####[facility] Agiilwgaqy7287 [place] [address]Dr. Chrissy Frazier Nitrite Ql (U) Negative Normal NEGATIVE [facility] Comment on above: Performed By: #### Amelie CHAMBERS UAMIC ####[facility] Uoayukggwm8805 [place] [address]Dr. Chrissy Frazier pH (U) 6.5 [pH] Normal 5-9 [facility] Comment on above: Performed By: #### Amelie CHAMBERS UAMIC ####[facility] Phyfavyoif2025[address] [place], [place] [address]Dr. Chrissy Frazier RBC NONE SEEN Abnormal 0-2 [facility] Comment on above: Performed By: #### Amelie CHAMBERS UAMIC ####[facility] Tipmfcvikm[address] [place], [place] [address]Dr. Chrissy Frazier SPEC GRAVITY 1.020 Normal 1.005-<=1.025 [facility] Comment on above: Performed By: #### Amelie CHAMBERS UAMIC ####[facility] Nqudtgihyt[address] [place], [place] [address]Dr. Chrissy Frazier UA PROTEIN Negative Normal NEGATIVE/ TRACE [facility] Comment on above: Performed By: #### Amelie CHAMBERS UAMIC ####[facility] Iszcsfmcax56[address] [place], [place] [address]Dr. Chrissy Frazier Urobilinogen Qn (U) 0.2 {Estrellita'U}/dL Normal 0.2 - 1. 0 [facility] Comment on above: Performed By: #### Amelie CHAMBERS UAMIC ####[facility] Pjhzwqjnpm4789 [place] [id number]. Chrissy Frazier WBC NONE SEEN Normal NONE SEEN [facility] Comment on above: Performed By: #### D REYES UAMIC ####[facility] Zyrsgmqidx8144 [place] [id number]. Chrissy Frazier AMMONIAon 01-03-2023 Ammonia (P) [Moles/Vol] 17 umol/L Normal 11-32 [facility] Comment on above: Performed By: #### A MM ####[facility] Bknwvbupeb76[address] [place] [address]Dr. Chrissy Frazier AMYLASEon 01-03-2023 Amylase [Catalytic activity/Vol] 38 U/L Normal 25-115 [facility] Comment on above: Performed By: #### L IPA, TERRENCE, CMP, MG ####[facility] Hutefhwude[address] [place] [address]Dr. Chrissy Frazier CBC AUTO DIFFon 01-03-2023 BASO # 0.1 103/ul Normal 0.0-0.1 [facility] Comment on above: Performed By: #### C BC ####[facility] Kotrzgcpbp6404 [place] [address]Dr. Chrissy Frazier Basophils/100 WBC (Bld) 0.4 % Normal 0.2-2.0 [facility] Comment on above: Performed By: #### C BC ####[facility] Fcqmdrmbkk1875 [place] [address]Dr. Chrissy Frazier EO # 0.1 103/ul Normal 0.0-0.7 [facility] Comment on above: Performed By: #### C BC ####[facility] Ozsuiuvedz0116 [place] [address]Dr. Chrissy Frazier Eosinophils/100 WBC (Bld) 0.3 % Critically low 0.9-7.0 [facility] Comment on above: Performed By: #### C BC ####[facility] Gqifglorti7259 [place] [address]Dr. Chrissy Frazier Erythrocyte distribution width (RBC) [Ratio] 13.7 % Normal 11.0-15.0 [facility] Comment on above: Performed By: #### C BC ####[facility] Sifcoajqax39[address] [place] [address]Dr. Tishrowan Freddie Hematocrit (Bld) [Volume fraction] 46.1 % Normal 42.0-54.0 [facility] Comment on above: Performed By: #### C BC ####[facility] Lpbewgzafb5358 [place] [address]Dr. Chrissy Frazier Hemoglobin (Bld) [Mass/Vol] 15.4 g/dL Normal 14.0-18.0 [facility] Comment on above: Performed By: #### C BC ####[facility] Zuxuaaqkda[address] [place], [place] [address]Dr. Chrissy Frazier IG # 0.11 10e3/ul Critically high 0.00-0.03 [facility] Comment on above: Performed By: #### C BC ####[facility] Ceggwxnwyd[address] [place], [place] [address]Dr. Chrissy Frazier IG % 0.6 % Critically high 0.0-0.5 [facility] Comment on above: Performed By: #### C BC ####[facility] Eivuwrqhjh64[address] [place], [place] [address]Dr. Chrissy Frazier LYMPH # 2.5 103/ul Normal 1.2-3.8 [facility] Comment on above: Performed By: #### C BC ####[facility] Zcecrsveqp[address] [place], [place] [address]DrNancy Frazier Lymphocytes/100 WBC (Bld) 13.9 % Critically low 20.5-60.0 [facility] Comment on above: Performed By: #### C BC ####[facility] Tdkqbsmpei710[address] [place], [place] [address]DrNancy Frazier MANUAL DIFF REQ NO Normal [facility] Comment on above: Performed By: #### C BC ####[facility] Piimrciioa3148 [place] [address]Dr. Chrissy Frazier MCH (RBC) [Entitic mass] 28.6 pg Normal 25.9-34.0 [facility] Comment on above: Performed By: #### C BC ####[facility] Anicarwuwu3241 [place] [address]Dr. Chrissy Frazier MCHC (RBC) [Mass/Vol] 33.4 g/dL Normal 29.9-35.2 [facility] Comment on above: Performed By: #### C BC ####[facility] Akhcozjlvh6003 [place] [address]Dr. Chrissy Frazier MCV (RBC) [Entitic vol] 85.7 fL Normal 80.0-94.0 [facility] Comment on above: Performed By: #### C BC ####[facility] Weqzekuvwm[address] [place], [place] [address]DrNancy Frazier MONO # 0.7 103/ul Normal 0.3-0.8 [facility] Comment on above: Performed By: #### C BC ####[facility] Wgrtmmvpsa44[address] [place], [place] [address]Dr. Chrissy Frazier Monocytes/100 WBC (Bld) 4.0 % Normal 1.7-12.0 [facility] Comment on above: Performed By: #### C BC ####[facility] Itssvdamaz[address] [place], [place] [address]DrNancy Frazier NEUT # 14.3 103/ul Critically high 1.4-6.5 [facility] Comment on above: Performed By: #### C BC ####[facility] Wpkvyomely7[address] [place], [place] [address]Dr. Chrissy Frazier Neutrophils/100 WBC (Bld) 80.8 % Critically high 43.0-75.0 [facility] Comment on above: Performed By: #### C BC ####[facility] Gwyvenlvfn5940[address] [place], [place] [address]DrNancy Frazier Platelet mean volume (Bld) [Entitic vol] 10.4 fL Normal 9.5-13.5 [facility] Comment on above: Performed By: #### C BC ####[facility] Iqhvffucgb[address] [place], [place] [address]Dr. Chrissy Frazier PLT 437 103/ul Normal 150-450 [facility] Comment on above: Performed By: #### C BC ####[facility] Drfafbrfuo6862 [place] [address]Dr. Chrissy Frazier RBC 5.38 106/ul Normal 4.70-6.10 [facility] Comment on above: Performed By: #### C BC ####[facility] Owpgsnuxuc1041 [place] [address]Dr. Chrissy Frazier WBC 17.7 103/ul Critically high 4.0-11.0 The [facility] Comment on above: Performed By: #### C BC ####[facility] Vukmtgvjhi12[address] [place] [address]Dr. Chrissy Frazier CULTURE BLOODon 01-03-2023 Microscopic examination of blood, culture Culture Observations: NO GROWTH AT 5 DAYS. Normal [facility] Comment on above: Performed By: #### B LDCX1 ####[facility] Wvpttzswdm[address] [place], [place] [address]Dr. Chrissy Frazier Performed By: #### B LDCX2 ####[facility] Ynitmtdrgm9746 [place] [address]Dr. Chrissy Frazier ECHOCARDIO M/2D COMPLETEon 0 01-03-2023 ECHOCARDIO M/2D COMPLETE Normal [facility] LACTATE/LACTIC ACIDon 2022 Lactate [Moles/Vol] 2.7 mmol/L Critically high 0.4-1.9 [facility] Comment on above: Performed By: #### L ACT ####[facility] Qhizqmaghr0870 [place] [address]Dr. Chrissy Frazier Lactate [Moles/Vol] 6.3 mmol/L Critically high 0.4-1.9 [facility] Comment on above: Performed By: #### L ACT ####[facility] Axphdydvuc7622 [place] [address]Dr. Chrissy Frazier LIPASEon 01-03-2023 Lipase [Catalytic activity/Vol] 74.0 U/L Normal 73.0-393.0 [facility] Comment on above: Performed By: #### L IPA, TERRENCE, CMP, MG ####[facility] Atsydyrtfg18[address] [place] [address]Dr. Chrissy Frazier MAGNESIUMon 01-03-2023 Magnesium [Mass/Vol] 1.6 mg/dL Critically low 1.8-2.4 [facility] Comment on above: Performed By: #### L IPA, TERRENCE, CMP, MG ####[facility] [address]ox[address]ildtd[address] [place] [address]Dr. Chrissy Frazier PROF 14(COMP METB)on 023 Albumin [Mass/Vol] 4.3 g/dL Normal 3.4-5.0 [facility] Comment on above: Performed By: #### L IPA, TERRENCE, CMP, MG ####[facility] Iafylexpka[address] [place] [address]Dr. Chrissy Frazier Albumin/Globulin [Mass ratio] 1.1 {ratio} Normal [facility] Comment on above: Performed By: #### L IPA, TERRENCE, CMP, MG ####[facility] Dqetqmwcfg[address] [place] [address]Dr. Chrissy Frazier ALP [Catalytic activity/Vol] 87 U/L Normal 46-116 [facility] Comment on above: Performed By: #### L IPA, TERRENCE, CMP, MG ####[facility] Ionrfpljnd12[address] [place] [address]Dr. Chrissy Frazier ALT [Catalytic activity/Vol] 32 U/L Normal 16-63 [facility] Comment on above: Performed By: #### L IPA, TERRENCE, CMP, MG ####[facility] Rvfxrodavj[address] [place] [address]Dr. Chrissy Frazier Anion gap [Moles/Vol] 24.0 mmol/L Normal [facility] Comment on above: Performed By: #### L IPA, TERRENCE, CMP, MG ####[facility] Mysocemawp52[address] [place] [address]Dr. Chrissy Frazier AST [Catalytic activity/Vol] 22 U/L Normal 15-37 [facility] Comment on above: Performed By: #### L IPA, TERRENCE, CMP, MG ####[facility] Ksqsvgrijs70[address] [place] [address]Dr. Chrissy Frazier Bilirubin [Mass/Vol] 0.6 mg/dL Normal 0.2-1.0 [facility] Comment on above: Performed By: #### L IPA, TERRENCE, CMP, MG ####[facility] Jpsyebgxrx40[address] [place] [address]Dr. Chrissy Frazier Calcium [Mass/Vol] 9.6 mg/dL Normal 8.5-10.1 [facility] Comment on above: Performed By: #### L IPA, TERRENCE, CMP, MG ####[facility] Brvycxvqgv16[address] [place] [address]Dr. Chrissy Frazier Chloride [Moles/Vol] 103 mmol/L Normal 98-107 [facility] Comment on above: Performed By: #### L IPA, TERRENCE, CMP, MG ####[facility] Yeybmjwe[address] [place], [place] [address]Dr. Chrissy Frazier CO2 [Moles/Vol] 16.7 mmol/L Critically low 21.0-32.0 [facility] Comment on above: Performed By: #### L IPA, TERRENCE, CMP, MG ####[facility] Egrjhbs[address] [place], [place] [address]Dr. Chrissy Frazier Creatinine [Mass/Vol] 1.42 mg/dL Critically high 0.70-1.30 [facility] Comment on above: Performed By: #### L IPA, TERRENCE, CMP, MG ####[facility] Xqgdxostfv[address] [place] [address]Dr. Chrissy Frazier EGFR-AF ICELANDIC >60 Normal >=60 [facility] Comment on above: Performed By: #### L IPA, TERRENCE, CMP, MG ####[facility] [address]qvqgvhope[address] [place], [place] [address]Dr. Chrissy Frazier EGFR-NON AF ICELANDIC 58 mL/min/1.73m2 Critically low >=60 [facility] Comment on above: Performed By: #### L IPA, TERRENCE, CMP, MG ####[facility] Mngsbzaqeb9[address] [place] [address]Dr. Chrissy Frazier Globulin (S) [Mass/Vol] 4.0 g/dL Normal [facility] Comment on above: Performed By: #### L IPA, TERRENCE, CMP, MG ####[facility] Uczgssyztm40[address] [place] [address]Dr. Chrissy Frazier Glucose [Mass/Vol] 149 mg/dL Critically high 74-106 [facility] Comment on above: Performed By: #### L IPA, TERRENCE, CMP, MG ####[facility] Sblyywhyhk4452 [place] [address]Dr. Chrissy Frazier Potassium [Moles/Vol] 3.7 mmol/L Normal 3.5-5.1 [facility] Comment on above: Performed By: #### L IPA, TERRENCE, CMP, MG ####[facility] Lsqswkecaw[address] [place] [address]Dr. Chrissy Frazier Protein [Mass/Vol] 8.3 g/dL Critically high 6.4-8.2 [facility] Comment on above: Performed By: #### L IPA, TERRENCE, CMP, MG ####[facility] Fcdeetuale8659 [place] [address]Dr. Chrissy Frazier Sodium [Moles/Vol] 140 mmol/L Normal 136-145 [facility] Comment on above: Performed By: #### L IPA, TERRENCE, CMP, MG ####[facility] Lukxujignt4566 [place] [address]Dr. Chrissy Frazier Urea nitrogen [Mass/Vol] 16.0 mg/dL Normal 7.0-18.0 [facility] Comment on above: Performed By: #### L IPA, TERRENCE, CMP, MG ####[facility] Tlwdqgojrs17[address] [place] [address]Dr. Chrissy Frazier Urea nitrogen/Creatinine [Mass ratio] 11.3 mg/mg Normal [facility] Comment on above: Performed By: #### L IPA, TERRENCE, CMP, MG ####[facility] Uivyktdzvh4307 [place] [address]Dr. Chrissy Frazier SED RATE [facility] 2022 SED RATE 37 mm/hr Critically high <=15 [facility] Comment on above: Performed By: #### S EDR ####[facility] Qpelftysxj3217 [place], [place] [address]Az. Chrissy Frazier XR ABD FLAT UP_PA Enoch 01-03 XR ABD FLAT UP_PA CH Normal [facility] CT HEART CORONARY ANGIOGRAMo n 12-13-2022 [...] CT examination Electronically signed: Maikel Chappell. Normal [facility] Office Visiton 11-24-2022 Follow-up visit [id number] Paulina Montero 1990 M Date Provider Department Center 11/24/2022 3848-RAQUEL BANKS MANE [facility] Family History Problem Relation Age of Onset Coronary artery disease Father Heart attack Father 54 Family Status - Relation Status Age at Father Level of Service:33541 HI OFFICE/OUTPATIENT NEW MODERATE MDM 45-59 MINUTES Reason for Visit and Comments: abnormal stress test [Other] Normal [facility] CARDIAC STRESS TESTon 2021 CARDIAC STRESS TEST Normal [facility] AMYLASEon 10-24-2022 Amylase [Catalytic activity/Vol] 26 U/L Normal 25-115 [facility] Comment on above: Performed By: #### C MP, LIPA, TERRENCE ####[facility] Kwfvkowsrr5255 [place], [place] [address]LcNancy Chrissy Frazier CBC AUTO DIFFon 10-24-2022 BASO # 0.0 103/ul Normal 0.0-0.1 [facility] Comment on above: Performed By: #### C BC ####[facility] Tzxcafynsu4[address] [place] [id number]. Chrissy Frazier Basophils/100 WBC (Bld) 0.2 % Normal 0.2-2.0 [facility] Comment on above: Performed By: #### C BC ####[facility] Pjxnkjqqbh9618 [place] [id number]. Chrissy Frazier EO # 0.1 103/ul Normal 0.0-0.7 [facility] Comment on above: Performed By: #### C BC ####[facility] Vqmxokpzex[address] [place], [place] [address]Dr. Chrissy Frazier Eosinophils/100 WBC (Bld) 0.4 % Critically low 0.9-7.0 [facility] Comment on above: Performed By: #### C BC ####[facility] Jcybsyhtik[address] [place], [place] [address]Dr. Chrissy Frazier Erythrocyte distribution width (RBC) [Ratio] 14.6 % Normal 11.0-15.0 [facility] Comment on above: Performed By: #### C BC ####[facility] Ktsbroskuy032[address] [place] [address]Dr. Chrissy Frazier Hematocrit (Bld) [Volume fraction] 39.4 % Critically low 42.0-54.0 [facility] Comment on above: Performed By: #### C BC ####[facility] Nkpzqicurp4842 [place] [id number]. Chrissy Frazier Hemoglobin (Bld) [Mass/Vol] 13.2 g/dL Critically low 14.0-18.0 [facility] Comment on above: Performed By: #### C BC ####[facility] Ofwwudnjlt7466 [place] [address]Dr. Chrissy Frazier IG # 0.07 10e3/ul Critically high 0.00-0.03 [facility] Comment on above: Performed By: #### C BC ####[facility] Tbcsdkaogs[address] [place], [place] [address]Dr. Chrissy Frazier IG % 0.5 % Normal 0.0-0.5 [facility] Comment on above: Performed By: #### C BC ####[facility] Tfuudkcsmn3313 [place] [id number]. Chrissy Frazier LYMPH # 3.7 103/ul Normal 1.2-3.8 [facility] Comment on above: Performed By: #### C BC ####[facility] Ynbfonmpld1137 [place], [place] [address]Or. Chrissy Freddie Lymphocytes/100 WBC (Bld) 27.0 % Normal 20.5-60.0 [facility] Comment on above: Performed By: #### C BC ####[facility] Zlssskpxxp7501 [place] [id number]. Tishrowan Frazier MANUAL DIFF REQ NO Normal [facility] Comment on above: Performed By: #### C BC ####[facility] Abygwspflg6286 [place] [id number]. Chrissy Freddie MCH (RBC) [Entitic mass] 27.8 pg Normal 25.9-34.0 [facility] Comment on above: Performed By: #### C BC ####[facility] Dvtvbfdnmo0378 [place] [id number]. Chrissy Frazier MCHC (RBC) [Mass/Vol] 33.5 g/dL Normal 29.9-35.2 [facility] Comment on above: Performed By: #### C BC ####[facility] Edetebnuoh9834 [place] [id number]. Chrissy Frazier MCV (RBC) [Entitic vol] 82.9 fL Normal 80.0-94.0 [facility] Comment on above: Performed By: #### C BC ####[facility] Dpeiuokmyb1619 [place] [id number]. Chrissy Freddie MONO # 1.2 103/ul Critically high 0.3-0.8 [facility] Comment on above: Performed By: #### C BC ####[facility] Nvzuciczal6710 [place] [id number]. Tishrowan Frazier Monocytes/100 WBC (Bld) 8.4 % Normal 1.7-12.0 [facility] Comment on above: Performed By: #### C BC ####[facility] Vfrvirkenl5318 [place] [address]Dr. Chrissy Frazier NEUT # 8.8 103/ul Critically high 1.4-6.5 [facility] Comment on above: Performed By: #### C BC ####[facility] Rmiqofnegw0729 [place] [id number]. Chrissy Frazier Neutrophils/100 WBC (Bld) 63.5 % Normal 43.0-75.0 [facility] Comment on above: Performed By: #### C BC ####[facility] Yciqomohcq9197 [place] [id number]. Tishrowan Frazier Platelet mean volume (Bld) [Entitic vol] 10.7 fL Normal 9.5-13.5 [facility] Comment on above: Performed By: #### C BC ####[facility] Glkpxjqyqa9163 [place] [id number]. Chrissy Frazier PLT 291 103/ul Normal 150-450 [facility] Comment on above: Performed By: #### C BC ####[facility] Glpauvducd[address] [place], [place] [address]Dr. Chrissy Frazier RBC 4.75 106/ul Normal 4.70-6.10 [facility] Comment on above: Performed By: #### C BC ####[facility] Rmashtsqnj6313 [place] [id number]. Chrissy Frazier WBC 13.8 103/ul Critically high 4.0-11.0 [facility] Comment on above: Performed By: #### C BC ####[facility] Fhlnyrwwiq[address] [place], [place] [address]Dr. Chrissy Frazier LIPASEon 10-24-2022 Lipase [Catalytic activity/Vol] 44.0 U/L Critically low 73.0-393.0 [facility] Comment on above: Performed By: #### C MP, LIPA, TERRENCE ####[facility] Fwklcalmqq9[address] [place] [address]Dr. Chrissy Frazier PROF 14(COMP METB)on 022 Albumin [Mass/Vol] 3.4 g/dL Normal 3.4-5.0 [facility] Comment on above: Performed By: #### C OSWALD ADAIR, TERRENCE ####[facility] Cjeymuxpan8547 [place] [address]Dr. Chrissy Frazier Albumin/Globulin [Mass ratio] 0.9 {ratio} Normal [facility] Comment on above: Performed By: #### C TESSA ADAIRA, TERRENCE ####[facility] Uwdakgixph[address] [place], [place] [address]Dr. Tishrowan Frazier ALP [Catalytic activity/Vol] 67 U/L Normal 46-116 [facility] Comment on above: Performed By: #### C OSWALD ADAIR, TERRENCE ####[facility] Oqzihhpnqr[address] [place], [place] [address]Dr. Chrissy Frazier ALT [Catalytic activity/Vol] 25 U/L Normal 16-63 [facility] Comment on above: Performed By: #### C OSWALD ADAIR, TERRENCE ####[facility] Qsiujzpfrh[address] [place], [place] [address]Dr. Chrissy Frazier Anion gap [Moles/Vol] 14.5 mmol/L Normal [facility] Comment on above: Performed By: #### C OSWALD ADAIR, TERRENCE ####[facility] Rmkhcagblv[address] [place], [place] [address]Dr. Chrissy Frazier AST [Catalytic activity/Vol] 17 U/L Normal 15-37 [facility] Comment on above: Performed By: #### C OSWALD ADAIR, TERRENCE ####[facility] Cwfuuylolr[address] [place], [place] [address]Dr. Chrissy Frazier Bilirubin [Mass/Vol] 0.5 mg/dL Normal 0.2-1.0 [facility] Comment on above: Performed By: #### C OSWALD ADAIR, TERRENCE ####[facility] Lcatobsuyy[address] [place], [place] [address]Dr. Chrissy Frazier Calcium [Mass/Vol] 8.6 mg/dL Normal 8.5-10.1 [facility] Comment on above: Performed By: #### C TESSA ADAIRA, TERRENCE ####[facility] Pgwogkfsjl6625 [place] [address]Dr. Chrissy Frazier Chloride [Moles/Vol] 106 mmol/L Normal 98-107 [facility] Comment on above: Performed By: #### C OSWALD ADAIR, TERRENCE ####[facility] Wnlaqfnhqp2138 [place] [address]Dr. Chrissy Frazier CO2 [Moles/Vol] 22.8 mmol/L Normal 21.0-32.0 [facility] Comment on above: Performed By: #### C OSWALD ADAIR, TERRENCE ####[facility] Wefirwlykq5480 [place] [address]Dr. Chrissy Frazier Creatinine [Mass/Vol] 0.98 mg/dL Normal 0.70-1.30 [facility] Comment on above: Performed By: #### C OSWALD ADAIR, TERRENCE ####[facility] Bwtqseikcg[address] [place], [place] [address]Dr. Chrissy Frazier EGFR-AF ICELANDIC >60 Normal >=60 [facility] Comment on above: Performed By: #### C OSWALD ADAIR, TERRENCE ####[facility] Wgqesourbu4[address] [place], [place] [address]Dr. Chrissy Frazier EGFR-NON AF ICELANDIC >60 Normal >=60 [facility] Comment on above: Performed By: #### C OSWALD ADAIR, TERRENCE ####[facility] Fsxhtunnby2529 [place] [address]Dr. Chrissy Frazier Globulin (S) [Mass/Vol] 3.7 g/dL Normal [facility] Comment on above: Performed By: #### C OSWALD ADAIR, TERRENCE ####[facility] Iobianwcet5563 [place] [address]Dr. Chrissy Frazier Glucose [Mass/Vol] 115 mg/dL Critically high 74-106 [facility] Comment on above: Performed By: #### C OSWALD ADAIR, TERRENCE ####[facility] Aihjvzvutd[address] [place], [place] [address]Dr. Chrissy Frazier Potassium [Moles/Vol] 3.3 mmol/L Critically low 3.5-5.1 [facility] Comment on above: Performed By: #### C MP, LIPA, TERRENCE ####[facility] Vqgydryevg[address] [place], [place] [address]Dr. Chrissy Frazier Protein [Mass/Vol] 7.1 g/dL Normal 6.4-8.2 [facility] Comment on above: Performed By: #### C MP, LIPA, TERRENCE ####[facility] Uurrqpplku[address] [place], [place] [address]Dr. Chrissy Frazier Sodium [Moles/Vol] 140 mmol/L Normal 136-145 [facility] Comment on above: Performed By: #### C MP, LIPA, TERRENCE ####[facility] Hglphajbti14[address] [place], [place] [address]Dr. Chrissy Frazier Urea nitrogen [Mass/Vol] 10.0 mg/dL Normal 7.0-18.0 [facility] Comment on above: Performed By: #### C MP, LIPA, TERRENCE ####[facility] Eimxmdwxwr[address] [place], [place] [address]Dr. hCrissy Frazier Urea nitrogen/Creatinine [Mass ratio] 10.2 mg/mg Normal [facility] Comment on above: Performed By: #### C MP, LIPA, TERRENCE ####[facility] Shoxzyosjf[address] [place], [place] [address]Dr. Chrissy Frazier AMYLASEon 10-23-2022 Amylase [Catalytic activity/Vol] 31 U/L Normal 25-115 [facility] Comment on above: Performed By: #### C MP, LIPA, TERRENCE ####[facility] Hxzvytexnw7[address] [place], [place] [address]Dr. Chrissy Frazier CBC AUTO DIFFon 10-23-2022 BASO # 0.1 103/ul Normal 0.0-0.1 [facility] Comment on above: Performed By: #### C BC ####[facility] Pgtaygttmv[address] [place], [place] [address]Dr. Chrissy Frazier Basophils/100 WBC (Bld) 0.3 % Normal 0.2-2.0 [facility] Comment on above: Performed By: #### C BC ####[facility] Whjvkktgsa1710 [place] [address]Dr. Chrissy Frazier EO # 0.1 103/ul Normal 0.0-0.7 [facility] Comment on above: Performed By: #### C BC ####[facility] Mvfebjqmyu9326 [place] [address]Dr. Chrissy Frazier Eosinophils/100 WBC (Bld) 0.3 % Critically low 0.9-7.0 [facility] Comment on above: Performed By: #### C BC ####[facility] Aurgsaytjz[address] [place], [place] [address]Dr. Chrissy Frazier Erythrocyte distribution width (RBC) [Ratio] 14.5 % Normal 11.0-15.0 [facility] Comment on above: Performed By: #### C BC ####[facility] Qdscbrabix[address] [place], [place] [address]Dr. Chrissy Frazier Hematocrit (Bld) [Volume fraction] 44.0 % Normal 42.0-54.0 [facility] Comment on above: Performed By: #### C BC ####[facility] Pwwwcgxief[address] [place], [place] [address]Dr. Chrissy Frazier Hemoglobin (Bld) [Mass/Vol] 14.8 g/dL Normal 14.0-18.0 [facility] Comment on above: Performed By: #### C BC ####[facility] Rcwgvpywrz2310 [place] [address]Dr. Chrissy Frazier IG # 0.09 10e3/ul Critically high 0.00-0.03 [facility] Comment on above: Performed By: #### C BC ####[facility] Ikpqwqriem3756 [place] [address]Dr. Chrissy Frazier IG % 0.5 % Normal 0.0-0.5 [facility] Comment on above: Performed By: #### C BC ####[facility] Htdvlcldjh[address] [place], [place] [address]Dr. Chrissy Frazier LYMPH # 3.6 103/ul Normal 1.2-3.8 [facility] Comment on above: Performed By: #### C BC ####[facility] Rdbfkdskxq2391 [place] [id number]. Chrissy Freddie Lymphocytes/100 WBC (Bld) 19.4 % Critically low 20.5-60.0 [facility] Comment on above: Performed By: #### C BC ####[facility] Wnmvnubnlu9541 [place] [address]Dr. Tishrowan Frazier MANUAL DIFF REQ NO Normal [facility] Comment on above: Performed By: #### C BC ####[facility] Zsnoqwthgn9336 [place] [address]Dr. Chrissy Freddie MCH (RBC) [Entitic mass] 28.1 pg Normal 25.9-34.0 [facility] Comment on above: Performed By: #### C BC ####[facility] Ehgzbtxsrr1676 [place] [address]Dr. Chrissy Freddie MCHC (RBC) [Mass/Vol] 33.6 g/dL Normal 29.9-35.2 [facility] Comment on above: Performed By: #### C BC ####[facility] Qyyklfkinu0806 [place] [address]Dr. Chrissy Freddie MCV (RBC) [Entitic vol] 83.5 fL Normal 80.0-94.0 [facility] Comment on above: Performed By: #### C BC ####[facility] Mmfhzckmal4772 [place] [address]Dr. Chrissy Frazier MONO # 0.9 103/ul Critically high 0.3-0.8 [facility] Comment on above: Performed By: #### C BC ####[facility] Gjyphpgemd6353 [place] [address]Dr. Tishrowan Frazier Monocytes/100 WBC (Bld) 4.9 % Normal 1.7-12.0 [facility] Comment on above: Performed By: #### C BC ####[facility] Wqgqfhrdpu5240 [place] [address]Dr. Chrissy Frazier NEUT # 13.9 103/ul Critically high 1.4-6.5 [facility] Comment on above: Performed By: #### C BC ####[facility] Fwvtizpntu4051 [place] [address]Dr. Chrissy Frazier Neutrophils/100 WBC (Bld) 74.6 % Normal 43.0-75.0 [facility] Comment on above: Performed By: #### C BC ####[facility] Ocauosauke6[address] [place] [address]Dr. Chrissy Frazier Platelet mean volume (Bld) [Entitic vol] 10.5 fL Normal 9.5-13.5 [facility] Comment on above: Performed By: #### C BC ####[facility] Kpkrgyzoti3874 [place] [address]Dr. Chrissy Frazier PLT 402 103/ul Normal 150-450 [facility] Comment on above: Performed By: #### C BC ####[facility] Lvivwdxrsd6418 [place] [address]Dr. Chrissy Frazier RBC 5.27 106/ul Normal 4.70-6.10 [facility] Comment on above: Performed By: #### C BC ####[facility] Bqjsbkjzak6131 [place] [address]Dr. Chrissy Frazier WBC 18.6 103/ul Critically high 4.0-11.0 [facility] Comment on above: Performed By: #### C BC ####[facility] Phvgxsojpq3071 [place] [address]Dr. Chrissy Frazier CULTURE BLOODon 10-23-2022 Microscopic examination of blood, culture Culture Observations: NO GROWTH AT 5 DAYS. Normal [facility] Comment on above: Performed By: #### B LDCX2 ####[facility] Tewsvselxo8579 [place] [id number]. Chrissy Frazier Microscopic examination of blood, culture Culture Observations: NO GROWTH AT 5 DAYS. Normal [facility] Comment on above: Performed By: #### B LDCX1 ####[facility] Qflepupzdw4239 [place] [id number]. Chrissy Frazier CULTURE URINEon 10-23-2022 CULTURE URINE Culture Observations: NO GROWTH. Normal [facility] Comment on above: Performed By: #### U RCX ####[facility] Lufwxuxkvx101[address] [place] [address]Dr. Chrissy Frazier Covid-19 PCR (CVDTB)on SARS-CoV-2 (COVID-19) RNA RHIANNON+probe Ql (Unsp spec) Not detected Normal NOT DETECTED [facility] Comment on above: Result Comment: When [...] for this test is supported by the [place] [employer] and Human Service's declaration that [...] be used). Performed By: #### C VDTBH ####[facility] Jbnmgxmrxc[address] [place], [place] [address]Dr. Chrissy Frazier INFLUENZA A AND B AGon 10-23 INFLUANEGH SEE BELOW Normal [facility] Comment on above: Result Comment: Nega tive for Flu A protein angiten. Infection due to Flu A cannot be ruled out. Flu A angiten in the sample may be below the detection limit of the test. Performed By: #### I NFLUAB ####[facility] Muzsbjbqvc[address] [place], [place] [address]Dr. Chrissy Frazier INFLUBNEGH SEE BELOW Normal [facility] Comment on above: Result Comment: Nega tive for Flu B protein antigen. Infection due to Flu B cannot be ruled out. Flu B antigen in the sample may be below the detection limit of the test. Performed By: #### I NFLUAB ####[facility] Meuqqszhtx[address] [place], [place] [address]Dr. Chrissy Frazier INFLUENZA A AG Negative Normal NEGATIVE SEE COMMENT [facility] Comment on above: Performed By: #### I NFLUAB ####[facility] Nftgzdfxqt1982 [place] [address]Dr. Chrissy Frazier INFLUENZA B AG Negative Normal NEGATIVE SEE COMMENT [facility] Comment on above: Performed By: #### I NFLUAB ####[facility] Grmivswwsy[address] [place], [place] [address]Dr. Chrissy Frazier INTERNAL CONTROLS Within Normal Limits Normal Wi thin Normal Limits [facility] Comment on above: Performed By: #### I NFLUAB ####[facility] Wpzyzzhgku97[address] [place], [place] [address]Dr. Chrissy Frazier LACTATE/LACTIC ACIDon 2021 Lactate [Moles/Vol] 2.1 mmol/L Critically high 0.4-1.9 [facility] Comment on above: Performed By: #### L ACT ####[facility] Otbetwjugi[address] [place], [place] [address]Dr. Chrissy Frazier Lactate [Moles/Vol] 6.9 mmol/L Critically high 0.4-1.9 [facility] Comment on above: Performed By: #### L ACT ####[facility] Wyfignsuoj[address] [place], [place] [address]Dr. Chrissy Freddie LIPASEon 10-23-2022 Lipase [Catalytic activity/Vol] 72.0 U/L Critically low 73.0-393.0 [facility] Comment on above: Performed By: #### C OSWALD ADAIR AMY ####[facility] Alkgzhpjqn[address] [place], [place] [address]Dr. Chrissy Frazier PROF 14(COMP METB)on 022 Albumin [Mass/Vol] 3.9 g/dL Normal 3.4-5.0 [facility] Comment on above: Performed By: #### C OSWALD ADAIR AMY ####[facility] Aiwwagklzh[address] [place], [place] [address]Dr. Chrissy Freddie Albumin/Globulin [Mass ratio] 0.9 {ratio} Normal [facility] Comment on above: Performed By: #### C MP, LIPA, TERRENCE ####[facility] Pqlzhezgtv1369 [place] [address]Dr. Chrissy Frazier ALP [Catalytic activity/Vol] 82 U/L Normal 46-116 [facility] Comment on above: Performed By: #### C MP, LIPA, TERRENCE ####[facility] Gecmopxisy39[address] [place] [address]Dr. Chrissy Frazier ALT [Catalytic activity/Vol] 25 U/L Normal 16-63 [facility] Comment on above: Performed By: #### C MP, LIPA, TERRENCE ####[facility] Dxmtrunggz[address] [place], [place] [address]Dr. Chrissy Frazier Anion gap [Moles/Vol] 18.1 mmol/L Normal [facility] [facility] Comment on above: Performed By: #### C MP, LIPA, TERRENCE ####[facility] Evqpnfnonc[address] [place], [place] [address]Dr. Chrissy Frazier AST [Catalytic activity/Vol] 17 U/L Normal 15-37 [facility] Comment on above: Performed By: #### C MP, LIPA, TERRENCE ####[facility] Eywdxdifkh[address] [place], [place] [address]Dr. Chrissy Frazier Bilirubin [Mass/Vol] 0.5 mg/dL Normal 0.2-1.0 [facility] Comment on above: Performed By: #### C MP, LIPA, TERRENCE ####[facility] Iuwvsnzass[address] [place], [place] [address]Dr. Chrissy Frazier Calcium [Mass/Vol] 9.1 mg/dL Normal 8.5-10.1 [facility] Comment on above: Performed By: #### C MP, LIPA, TERRENCE ####[facility] Kovjjwsxdl[address] [place], [place] [address]Dr. Chrissy Frazier Chloride [Moles/Vol] 101 mmol/L Normal 98-107 [facility] Comment on above: Performed By: #### C MP, LIPA, TERRENCE ####[facility] Vbgmerldrq23[address] [place], [place] [address]Dr. Chrissy Frazier CO2 [Moles/Vol] 19.2 mmol/L Critically low 21.0-32.0 [facility] Comment on above: Performed By: #### C OSWALD ADAIR TERRENCE ####[facility] [address]ghvuopg[address] [place] [address]Dr. Chrissy Frazier Creatinine [Mass/Vol] 1.72 mg/dL Critically high 0.70-1.30 [facility] Comment on above: Performed By: #### C OSWALD ADAIR, TERRENCE ####[facility] Xccbpbfwkx[address] [place] [address]Dr. Chrissy Frazier EGFR-AF ICELANDIC 56 mL/min/1.73m2 Critically low >=60 [facility] Comment on above: Performed By: #### C OSWALD ADAIR, TERRENCE ####[facility] Tiftkkaqhv[address] [place] [address]Dr. Chrissy Frazier EGFR-NON AF ICELANDIC 46 mL/min/1.73m2 Critically low >=60 [facility] Comment on above: Performed By: #### C OSWALD ADAIR, TERRENCE ####[facility] Tvznhivois[address] [place], [place] [address]Dr. Chrissy Frazier Globulin (S) [Mass/Vol] 4.2 g/dL Normal [facility] Comment on above: Performed By: #### C OSWALD ADAIR, TERRENCE ####[facility] [address]jhiherl[address] [place] [address]Dr. Chrissy Frazier Glucose [Mass/Vol] 126 mg/dL Critically high 74-106 T [facility] Comment on above: Performed By: #### C OSWALD ADAIR, TERRENCE ####[facility] Hivcsutgnr[address] [place] [address]Dr. Chrissy Frazier Potassium [Moles/Vol] 3.3 mmol/L Critically low 3.5-5.1 [facility] Comment on above: Performed By: #### C TESSA ADAIRA, TERRENCE ####[facility] Hwujhqpduy7[address] [place] [address]Dr. Chrissy Frazier Protein [Mass/Vol] 8.1 g/dL Normal 6.4-8.2 [facility] Comment on above: Performed By: #### C OSWALD ADAIR, TERRENCE ####[facility] Wkdzdytedc[address] [place] [address]Dr. Chrissy Frazier Sodium [Moles/Vol] 135 mmol/L Critically low 136-145 [facility] Comment on above: Performed By: #### C TESSA ADAIRA, TERRENCE ####[facility] Llfyzaaosl64[address] [place] [address]Dr. Chrissy Frazier Urea nitrogen [Mass/Vol] 13.0 mg/dL Normal 7.0-18.0 [facility] Comment on above: Performed By: #### C OSWALD ADAIR, TERRENCE ####[facility] Gvfzlunpsm[address] [place], [place] [address]Dr. Chrissy Frazier Urea nitrogen/Creatinine [Mass ratio] 7.6 mg/mg Normal [facility] Comment on above: Performed By: #### C OSWALD ADAIR, TERRENCE ####[facility] Tiyovvecbu3[address] [place], [place] [address]Dr. Chrissy Frazier UA RANDOM W/MICROSCOPICon BACTERIA NONE SEEN Normal NONE SEEN [facility] Comment on above: Performed By: #### U AMIC ####[facility] Rfhdaktunw[address] [place], [place] [address]Dr. Chrissy Frazier Bilirubin Ql (U) Negative Normal NEGATIVE The [facility] Comment on above: Performed By: #### U AMIC ####[facility] Kxtfvtfyah[address] [place], [place] [address]Dr. Chrissy Frazier CAST NONE SEEN Normal NONE SEEN [facility] Comment on above: Performed By: #### U AMIC ####[facility] Ujgcgnrmym223[address] [place], [place] [address]Dr. Chrissy Frazier Clarity (U) CLEAR Normal CLEAR [facility] Comment on above: Performed By: #### U AMIC ####[facility] Objtkojovl[address] [place] [address]Dr. Chrissy Frazier Color (U) LT. YELLOW Normal YELLOW [facility] Comment on above: Performed By: #### U AMIC ####[facility] Dgqxucurnc5942 [place] [address]Dr. Chrissy Frazier Crystals LM Nom (Urine sed) NONE SEEN Normal NONE SEEN [facility] Comment on above: Performed By: #### U AMIC ####[facility] Ykrbeuedyw029[address] [place], [place] [address]Dr. Chrissy Frazier Epithelial cells LM Ql (Urine sed) FEW Abnormal NONE SEEN /RARE [facility] Comment on above: Performed By: #### U AMIC ####[facility] Ufvhhaghfg378[address] [place], [place] [address]Dr. Chrissy Frazier Glucose Ql (U) Negative Normal NEGATIVE [facility] Comment on above: Performed By: #### U AMIC ####[facility] Ikeytdiwah807[address] [place], [place] [address]Dr. Chrissy Frazier Hemoglobin Ql (U) Negative Normal NEGATIVE [facility] Comment on above: Performed By: #### U AMIC ####[facility] Oxmfdgvcxt5087[address] [place], [place] [address]Dr. Chrissy Frazier Ketones Ql (U) 15 mg/dl Abnormal NEGATIVE The [facility] Comment on above: Performed By: #### U AMIC ####[facility] Vyfiaymnog29[address] [place], [place] [address]Dr. Chrissy Frazier LEUKOCYTES Negative Normal NEGATIVE [facility] Comment on above: Performed By: #### U AMIC ####[facility] Fmjsixcavz249[address] [place], [place] [address]Dr. Chrissy Frazier MUCOUS NONE SEEN Normal NONE SEEN [facility] Comment on above: Performed By: #### U AMIC ####[facility] Kdfjzvcfzf[address] [place], [place] [address]Dr. Chrissy Frazier Nitrite Ql (U) Negative Normal NEGATIVE The [facility] Comment on above: Performed By: #### U AMIC ####[facility] Uvdgjapjmd6810[address] [place], [place] [address]Dr. Chrissy Frazier pH (U) 6.0 [pH] Normal 5-9 [facility] Comment on above: Performed By: #### U AMIC ####[facility] Adbyirjryz4657[address] [place], [place] [address]Dr. Chrissy Frazier RBC 0-2 Normal 0-2 [facility] Comment on above: Performed By: #### U AMIC ####[facility] Fmukehyiex[address] [place] [address]Dr. Chrissy Frazier SPEC GRAVITY 1.010 Normal 1.005-<=1.025 The [facility] Comment on above: Performed By: #### U AMIC ####[facility] Ysxjjlyqcj4808 [place] [address]Dr. Chrissy Freddie UA PROTEIN Negative Normal NEGATIVE/ TRACE The [facility] Comment on above: Performed By: #### U AMIC ####[facility] Vdsfwleucf9986 [place] [address]Dr. Chrissy Freddie Urobilinogen Qn (U) 0.2 {Estrellita'U}/dL Normal 0.2 - 1. 0 [facility] Comment on above: Performed By: #### U AMIC ####[facility] Cwzpxenylt8[address] [place], [place] [address]Dr. Chrissy Freddie WBC NONE SEEN Normal NONE SEEN [facility] Comment on above: Performed By: #### U AMIC ####[facility] Jalmmalykf[address] [place], [place] [address]Dr. Chrissy Freddie AMYLASEon 10-22-2022 Amylase [Catalytic activity/Vol] 28 U/L Normal 25-115 [facility] Comment on above: Performed By: #### L IPA, CMP, TERRENCE ####[facility] Rjwpiqsnhi8437[address] [place], [place] [address]Dr. Chrissy Freddie CBC AUTO DIFFon 10-22-2022 BASO # 0.0 103/ul Normal 0.0-0.1 [facility] Comment on above: Performed By: #### C BC ####[facility] Ccpzvhensa[address] [place], [place] [address]Dr. Tishrowan Frazier Basophils/100 WBC (Bld) 0.2 % Normal 0.2-2.0 [facility] Comment on above: Performed By: #### C BC ####[facility] Aepgzlaksm68[address] [place], [place] [address]Dr. Chrissy Frazier EO # 0.0 103/ul Normal 0.0-0.7 [facility] Comment on above: Performed By: #### C BC ####[facility] Blahzzdtia[address] [place] [address]Dr. Chrissy Frazier Eosinophils/100 WBC (Bld) 0.1 % Critically low 0.9-7.0 [facility] Comment on above: Performed By: #### C BC ####[facility] Cpnidhwvlp8517 [place] [address]Dr. Chrissy Frazier Erythrocyte distribution width (RBC) [Ratio] 14.4 % Normal 11.0-15.0 [facility] Comment on above: Performed By: #### C BC ####[facility] Ktgiunjmpx6639[address] [place], [place] [address]Dr. Chrissy Frazire Hematocrit (Bld) [Volume fraction] 45.2 % Normal 42.0-54.0 [facility] Comment on above: Performed By: #### C BC ####[facility] Forwbdbkvw458[address] [place], [place] [address]Dr. Chrissy Frazier Hemoglobin (Bld) [Mass/Vol] 15.4 g/dL Normal 14.0-18.0 [facility] Comment on above: Performed By: #### C BC ####[facility] Gjmfbdjbdm01[address] [place], [place] [address]Dr. Chrissy Frazier IG # 0.07 10e3/ul Critically high 0.00-0.03 [facility] Comment on above: Performed By: #### C BC ####[facility] Paoybiazod5[address] [place] [address]Dr. Chrissy Frazier IG % 0.4 % Normal 0.0-0.5 [facility] Comment on above: Performed By: #### C BC ####[facility] Dzuhwxkqip6[address] [place], [place] [address]Dr. Chrissy Frazier LYMPH # 2.0 103/ul Normal 1.2-3.8 [facility] Comment on above: Performed By: #### C BC ####[facility] Riohjsqcoc14[address] [place], [place] [address]Dr. Chrissy Frazier Lymphocytes/100 WBC (Bld) 12.2 % Critically low 20.5-60.0 [facility] Comment on above: Performed By: #### C BC ####[facility] Iwcfobsdds3158 [place] [address]DrNancy Frazier MANUAL DIFF REQ NO Normal [facility] Comment on above: Performed By: #### C BC ####[facility] Aneovirdns[address] [place] [address]Dr. Chrissy Frazier MCH (RBC) [Entitic mass] 28.3 pg Normal 25.9-34.0 [facility] Comment on above: Performed By: #### C BC ####[facility] Zvpilqjasr57[address] [place], [place] [address]Dr. Chrissy Frazier MCHC (RBC) [Mass/Vol] 34.1 g/dL Normal 29.9-35.2 [facility] Comment on above: Performed By: #### C BC ####[facility] Qrnzjijrow30[address] [place], [place] [address]Dr. Chrissy Frazier MCV (RBC) [Entitic vol] 82.9 fL Normal 80.0-94.0 [facility] Comment on above: Performed By: #### C BC ####[facility] Tnveuryxzj8[address] [place], [place] [address]Dr. Chrissy Frazier MONO # 0.3 103/ul Normal 0.3-0.8 [facility] Comment on above: Performed By: #### C BC ####[facility] Aqwikpgmxp[address] [place], [place] [address]Dr. Chrissy Frazier Monocytes/100 WBC (Bld) 2.0 % Normal 1.7-12.0 [facility] Comment on above: Performed By: #### C BC ####[facility] Jrludcijew[address] [place], [place] [address]DrNancy Frazier NEUT # 14.0 103/ul Critically high 1.4-6.5 The [facility] Comment on above: Performed By: #### C BC ####[facility] Qpaiawgyky395[address] [place], [place] [address]Dr. Chrissy Frazier Neutrophils/100 WBC (Bld) 85.1 % Critically high 43.0-75.0 [facility] Comment on above: Performed By: #### C BC ####[facility] Ihnifwgmtc1194 [place] [address]Dr. Chrissy Frazier Platelet mean volume (Bld) [Entitic vol] 10.6 fL Normal 9.5-13.5 [facility] Comment on above: Performed By: #### C BC ####[facility] Zzlboypcmg6[address] [place] [address]Dr. Chrissy Frazier PLT 411 103/ul Normal 150-450 [facility] Comment on above: Performed By: #### C BC ####[facility] Ljbbvecpxv1223 [place] [address]Dr. Tishrowan Frazier RBC 5.45 106/ul Normal 4.70-6.10 [facility] Comment on above: Performed By: #### C BC ####[facility] Akftlmfdev[address] [place], [place] [address]Dr. Chrissy Frazier WBC 16.5 103/ul Critically high 4.0-11.0 The [facility] Comment on above: Performed By: #### C BC ####[facility] Cwgodsjazv12[address] [place], [place] [address]Dr. Chrissy Freddie LIPASEon 10-22-2022 Lipase [Catalytic activity/Vol] 57.0 U/L Critically low 73.0-393.0 [facility] Comment on above: Performed By: #### L JULIEN CMP, TERRENCE ####[facility] Xpekqyubss54[address] [place] [address]Dr. Chrissy Frazier PROF 14(COMP METB)on 022 Albumin [Mass/Vol] 4.2 g/dL Normal 3.4-5.0 [facility] Comment on above: Performed By: #### L IPA CMP, TERRENCE ####[facility] Leuahlrknf87[address] [place] [address]Dr. Chrissy Frazier Albumin/Globulin [Mass ratio] 1.0 {ratio} Normal [facility] Comment on above: Performed By: #### L IPA, CMP, TERRENCE ####[facility] Psnsheklwb3574 [place] [address]Dr. Chrissy Frazier ALP [Catalytic activity/Vol] 92 U/L Normal 46-116 [facility] Comment on above: Performed By: #### L IPA, CMP, TERRENCE ####[facility] Oindprvxtz5122 [place] [address]Dr. Chrissy Frazier ALT [Catalytic activity/Vol] 26 U/L Normal 16-63 [facility] Comment on above: Performed By: #### L IPA, CMP, TERRENCE ####[facility] Lvhhnfwuht0059 [place] [address]Dr. Chrissy Frazier Anion gap [Moles/Vol] 19.5 mmol/L Normal [facility] Comment on above: Performed By: #### L IPA, CMP, TERRENCE ####[facility] Donskfrmbd7216[address] [place], [place] [address]Dr. Chrissy Frazier AST [Catalytic activity/Vol] 19 U/L Normal 15-37 [facility] Comment on above: Performed By: #### L IPA, CMP, TERRENCE ####[facility] Eppciezdtc7945[address] [place], [place] [address]Dr. Chrissy Frazier Bilirubin [Mass/Vol] 0.7 mg/dL Normal 0.2-1.0 [facility] Comment on above: Performed By: #### L IPA, CMP, TERRENCE ####[facility] Luhccanjwc9380 [place] [address]Dr. Chrissy Frazier Calcium [Mass/Vol] 9.6 mg/dL Normal 8.5-10.1 [facility] Comment on above: Performed By: #### L IPA, CMP, TERRENCE ####[facility] Mnxotvixxb9895 [place] [address]Dr. Chrissy Frazier Chloride [Moles/Vol] 102 mmol/L Normal 98-107 [facility] Comment on above: Performed By: #### L IPA, CMP, TERRENCE ####[facility] Mhxbfwclsi3633 [place] [address]Dr. Chrissy Frazier CO2 [Moles/Vol] 19.1 mmol/L Critically low 21.0-32.0 [facility] Comment on above: Performed By: #### L IPA CMP, TERRENCE ####[facility] Rcgnyylshr4766 [place] [address]Dr. Chrissy Frazier Creatinine [Mass/Vol] 1.47 mg/dL Critically high 0.70-1.30 [facility] Comment on above: Performed By: #### L IPA CMP, TERRENCE ####[facility] Kveyqsshax464[address] [place], [place] [address]Dr. Chrissy Freddie EGFR-AF ICELANDIC >60 Normal >=60 [facility] Comment on above: Performed By: #### L IPA CMP, TERRENCE ####[facility] Aeybduvqxb78[address] [place], [place] [address]Dr. Tishrowan Freddie EGFR-NON AF ICELANDIC 56 mL/min/1.73m2 Critically low >=60 [facility] Comment on above: Performed By: #### L IPA CMP, TERRENCE ####[facility] Ukwxnkgzru8[address] [place], [place] [address]Dr. Chrissy Frazier Globulin (S) [Mass/Vol] 4.3 g/dL Normal [facility] Comment on above: Performed By: #### L IPA CMP, TERRENCE ####[facility] Drzmcgapwe549[address] [place], [place] [address]Dr. Chrissy Frazier Glucose [Mass/Vol] 189 mg/dL Critically high 74-106 [facility] Comment on above: Performed By: #### L IPA CMP, TERRENCE ####[facility] Fzmruqdohn[address] [place], [place] [address]Dr. Chrissy Frazier Potassium [Moles/Vol] 4.6 mmol/L Normal 3.5-5.1 [facility] Comment on above: Performed By: #### L IPA CMP, TERRENCE ####[facility] Pylwvyeqbe909[address] [place], [place] [address]Dr. Chrissy Frazier Protein [Mass/Vol] 8.5 g/dL Critically high 6.4-8.2 [facility] Comment on above: Performed By: #### L IPA CMP, TERRENCE ####[facility] Nbzkeeipnd8[address] [place] [id number]. Chrissy Freddie Sodium [Moles/Vol] 136 mmol/L Normal 136-145 [facility] Comment on above: Performed By: #### L IPA, CMP, TERRENCE ####[facility] Vnivedrcsg9554 [place] [address]Dr. Chrissy Freddie Urea nitrogen [Mass/Vol] 16.0 mg/dL Normal 7.0-18.0 [facility] Comment on above: Performed By: #### L IPA, CMP, TERRENCE ####[facility] Blbvrhujgo7923 [place] [address]Dr. Tishrowan Frazier Urea nitrogen/Creatinine [Mass ratio] 10.9 mg/mg Normal [facility] Comment on above: Performed By: #### L IPA, CMP, TERRENCE ####[facility] Vuslzrfkyy7[address] [place], [place] [address]Dr. Tishrowan Frazier AMYLASEon 09-03-2022 Amylase [Catalytic activity/Vol] 25 U/L Normal 25-115 [facility] Comment on above: Performed By: #### L IPA, TERRENCE, CMP ####[facility] Gtjikdckfb[address] [place], [place] [address]Dr. Chrissy Frazier CBC AUTO DIFFon 09-03-2022 BASO # 0.0 103/ul Normal 0.0-0.1 [facility] Comment on above: Performed By: #### C BC ####[facility] Rbckobfmfu6865[address] [place], [place] [address]Dr. Chrissy Frazier Basophils/100 WBC (Bld) 0.1 % Critically low 0.2-2.0 [facility] Comment on above: Performed By: #### C BC ####[facility] Caqlomfmtp5826[address] [place], [place] [address]Dr. Chrissy Frazier EO # 0.0 103/ul Normal 0.0-0.7 [facility] Comment on above: Performed By: #### C BC ####[facility] Fjljrqsisz58[address] [place], [place] [address]Dr. Chrissy Frazier Eosinophils/100 WBC (Bld) 0.1 % Critically low 0.9-7.0 [facility] Comment on above: Performed By: #### C BC ####[facility] Xqellqrziy4856 [place] [address]Dr. Chrissy Frazier Erythrocyte distribution width (RBC) [Ratio] 14.0 % Normal 11.0-15.0 [facility] Comment on above: Performed By: #### C BC ####[facility] Ommmwaixal9361 [place] [address]Dr. Chrissy Frazier Hematocrit (Bld) [Volume fraction] 42.5 % Normal 42.0-54.0 [facility] Comment on above: Performed By: #### C BC ####[facility] Fhxuhcnpzn90[address] [place], [place] [address]Dr. Chrissy Frazier Hemoglobin (Bld) [Mass/Vol] 14.1 g/dL Normal 14.0-18.0 [facility] Comment on above: Performed By: #### C BC ####[facility] Auoyuwiutc[address] [place], [place] [address]Dr. Chirssy Frazier IG # 0.06 10e3/ul Critically high 0.00-0.03 [facility] Comment on above: Performed By: #### C BC ####[facility] Oxlsmizneq7945[address] [place], [place] [address]Dr. Chrissy Frazier IG % 0.4 % Normal 0.0-0.5 [facility] Comment on above: Performed By: #### C BC ####[facility] Hnayrkuugz5[address] [place], [place] [address]Dr. Chrissy Frazier LYMPH # 2.5 103/ul Normal 1.2-3.8 [facility] Comment on above: Performed By: #### C BC ####[facility] Vibmyyqnrw[address] [place], [place] [address]Dr. Chrissy Frazier Lymphocytes/100 WBC (Bld) 16.3 % Critically low 20.5-60.0 [facility] Comment on above: Performed By: #### C BC ####[facility] Dqtrfrliil075[address] [place], [place] [address]Dr. Chrissy Frazier MANUAL DIFF REQ NO Normal [facility] Comment on above: Performed By: #### C BC ####[facility] Snyndzvjqx1819 [place] [id number] Chrissy Freddie MCH (RBC) [Entitic mass] 28.1 pg Normal 25.9-34.0 [facility] Comment on above: Performed By: #### C BC ####[facility] Tirtbjcxyi6065 [place] [address]Dr. Chrissy Frazier MCHC (RBC) [Mass/Vol] 33.2 g/dL Normal 29.9-35.2 [facility] Comment on above: Performed By: #### C BC ####[facility] Sioqlcdhdp9820 [place] [address]DrNancy Frazier MCV (RBC) [Entitic vol] 84.8 fL Normal 80.0-94.0 [facility] Comment on above: Performed By: #### C BC ####[facility] Urgpxmumwu[address] [place], [place] [address]DrNancy Frazier MONO # 1.1 103/ul Critically high 0.3-0.8 [facility] Comment on above: Performed By: #### C BC ####[facility] Ktquptjocv79[address] [place], [place] [address]DrNancy Frazier Monocytes/100 WBC (Bld) 7.4 % Normal 1.7-12.0 [facility] Comment on above: Performed By: #### C BC ####[facility] Mytkxwjwle[address] [place], [place] [address]DrNancy Frazier NEUT # 11.5 103/ul Critically high 1.4-6.5 [facility] Comment on above: Performed By: #### C BC ####[facility] Jujinkuijw[address] [place], [place] [id number] Frazier Neutrophils/100 WBC (Bld) 75.7 % Critically high 43.0-75.0 [facility] Comment on above: Performed By: #### C BC ####[facility] Ilkvsdjfft8024[address] [place], [place] [address]DrNancy Frazier Platelet mean volume (Bld) [Entitic vol] 10.6 fL Normal 9.5-13.5 [facility] Comment on above: Performed By: #### C BC ####[facility] Uaflqyqwkt9733 [place] [address]Dr. Chrissy Frazier PLT 310 103/ul Normal 150-450 [facility] Comment on above: Performed By: #### C BC ####[facility] Ubbpvlwmpv4291 [place] [address]Dr. Chrissy Frazier RBC 5.01 106/ul Normal 4.70-6.10 [facility] Comment on above: Performed By: #### C BC ####[facility] Fxdzkfrzsw5313 [place] [address]Dr. Chrissy Frazier WBC 15.2 103/ul Critically high 4.0-11.0 [facility] Comment on above: Performed By: #### C BC ####[facility] Mwijljkotd[address] [place], [place] [address]Dr. Chrissy Frazier LIPASEon 09-03-2022 Lipase [Catalytic activity/Vol] 46.0 U/L Critically low 73.0-393.0 [facility] Comment on above: Performed By: #### L TERRENCE VICTORIA, CMP ####[facility] Gyftshypwa[address] [place], [place] [address]Dr. Chrissy Frazier PROF 14(COMP METB)on 022 Albumin [Mass/Vol] 3.7 g/dL Normal 3.4-5.0 [facility] Comment on above: Performed By: #### L TERRENCE VICTORIA, CMP ####[facility] Auhowshnpn[address] [place], [place] [address]Dr. Chrissy Frazier Albumin/Globulin [Mass ratio] 1.0 {ratio} Normal [facility] Comment on above: Performed By: #### L TERRENCE VICTORIA, CMP ####[facility] Zvmqnutilo24[address] [place], [place] [address]Dr. Chrissy Frazier ALP [Catalytic activity/Vol] 65 U/L Normal 46-116 [facility] Comment on above: Performed By: #### L TERRENCE VICTORIA, CMP ####[facility] Bmwlkigqbh1245 [place] [address]Dr. Chrissy Frazier ALT [Catalytic activity/Vol] 42 U/L Normal 16-63 [facility] Comment on above: Performed By: #### L TERRENCE VICTORIA, CMP ####[facility] Ebhtahnxgj6886 [place] [address]Dr. Chrissy Frazier Anion gap [Moles/Vol] 14.4 mmol/L Normal [facility] Comment on above: Performed By: #### L TERRENCE VICTORIA, CMP ####[facility] Vgldiapdfh[address] [place], [place] [address]Dr. Chrissy Frazier AST [Catalytic activity/Vol] 16 U/L Normal 15-37 [facility] Comment on above: Performed By: #### L TERRENCE VICTORIA, CMP ####[facility] Cgyzfwqxfo63[address] [place], [place] [address]Dr. Chrissy Frazier Bilirubin [Mass/Vol] 0.4 mg/dL Normal 0.2-1.0 [facility] Comment on above: Performed By: #### L TERRENCE VICTORIA, CMP ####[facility] Ocxuskrngy99[address] [place], [place] [address]Dr. Chrissy Frazier Calcium [Mass/Vol] 8.7 mg/dL Normal 8.5-10.1 [facility] Comment on above: Performed By: #### L TERRENCE VICTORIA, CMP ####[facility] Jljsxjtfgx8[address] [place], [place] [address]Dr. Chrissy Frazier Chloride [Moles/Vol] 105 mmol/L Normal 98-107 [facility] Comment on above: Performed By: #### L TERRENCE VICTORIA, CMP ####[facility] Eyhpmjsnxj4673 [place] [address]Dr. Chrissy Frazier CO2 [Moles/Vol] 22.6 mmol/L Normal 21.0-32.0 [facility] Comment on above: Performed By: #### L TERRENCE VICTORIA, CMP ####[facility] K[address] [place], [place] [address]Dr. Chrissy Frazier Creatinine [Mass/Vol] 1.11 mg/dL Normal 0.70-1.30 [facility] Comment on above: Performed By: #### L IPA TERRENCE, CMP ####[facility] Ifhxpowydg70[address] [place] [id number]. Chrissy Frazier EGFR-AF ICELANDIC >60 Normal >=60 [facility] Comment on above: Performed By: #### L IPA TERRENCE, CMP ####[facility] Svnnfuxajr8[address] [place] [id number]. Chrissy Frazier EGFR-NON AF ICELANDIC >60 Normal >=60 [facility] Comment on above: Performed By: #### L IPA TERRENCE, CMP ####[facility] Saypyqbgpe[address] [place] [address]Dr. Chrissy Frazier Globulin (S) [Mass/Vol] 3.7 g/dL Normal [facility] Comment on above: Performed By: #### L JULIEN TERRENCE, CMP ####[facility] Kcmuomcngo[address] [place] [address]Dr. Chrissy Frazier Glucose [Mass/Vol] 121 mg/dL Critically high 74-106 [facility] Comment on above: Performed By: #### L JULIEN TERRENCE, CMP ####[facility] Zqgcbfvqbt58[address] [place] [address]Dr. Chrissy Frazier Potassium [Moles/Vol] 4.0 mmol/L Normal 3.5-5.1 [facility] Comment on above: Performed By: #### L JULIEN TERRENCE, CMP ####[facility] Tiihxvedgx[address] [place] [address]Dr. Chrissy Frazier Protein [Mass/Vol] 7.4 g/dL Normal 6.4-8.2 [facility] Comment on above: Performed By: #### L JULIEN TERRENCE, CMP ####[facility] Udtlbetdsv[address] [place] [address]Dr. Chrissy Frazier Sodium [Moles/Vol] 138 mmol/L Normal 136-145 [facility] Comment on above: Performed By: #### L IPA TERRENCE, CMP ####[facility] Czihqejxrz7[address] [place] [address]Dr. Chrissy Frazier Urea nitrogen [Mass/Vol] 6.0 mg/dL Critically low 7.0-18.0 [facility] Comment on above: Performed By: #### L IPA, TERRENCE, CMP ####[facility] Kimepnmj[address] [place], [place] [address]Dr. Chrissy Frazier Urea nitrogen/Creatinine [Mass ratio] 5.4 mg/mg Normal [facility] Comment on above: Performed By: #### L IPA, TERRENCE, CMP ####[facility] Qpfpxhhluz[address] [place], [place] [address]Dr. Chrissy Frazier AMYLASEon 09-02-2022 Amylase [Catalytic activity/Vol] 29 U/L Normal 25-115 [facility] Comment on above: Performed By: #### A MY, CMP, LIPA ####[facility] Iqcbqgwiyo[address] [place], [place] [address]Dr. Chrissy Frazier CBC AUTO DIFFon 09-02-2022 BASO # 0.1 103/ul Normal 0.0-0.1 [facility] Comment on above: Performed By: #### C BC ####[facility] Sjgyngtdea[address] [place], [place] [address]Dr. Chrissy Frazier Basophils/100 WBC (Bld) 0.4 % Normal 0.2-2.0 [facility] Comment on above: Performed By: #### C BC ####[facility] Szfrrtixsr[address] [place], [place] [address]Dr. Chrissy Frazier EO # 0.1 103/ul Normal 0.0-0.7 [facility] Comment on above: Performed By: #### C BC ####[facility] Adsoshzqli90[address] [place], [place] [address]Dr. Chrissy Frazier Eosinophils/100 WBC (Bld) 0.7 % Critically low 0.9-7.0 [facility] Comment on above: Performed By: #### C BC ####[facility] Lgxxlgasqm[address] [place], [place] [address]Dr. Chrissy Frazier Erythrocyte distribution width (RBC) [Ratio] 13.7 % Normal 11.0-15.0 [facility] Comment on above: Performed By: #### C BC ####[facility] Nlsyqbxgjd0983 [place] [id number]. Chrissy Frazier Hematocrit (Bld) [Volume fraction] 48.3 % Normal 42.0-54.0 [facility] Comment on above: Performed By: #### C BC ####[facility] Nnodomzdtp0161 [place] [id number]. Chrissy Frazier Hemoglobin (Bld) [Mass/Vol] 16.0 g/dL Normal 14.0-18.0 [facility] Comment on above: Performed By: #### C BC ####[facility] Rdwvgwagtd4968 [place] [id number]. Chrissy Freddie IG # 0.09 10e3/ul Critically high 0.00-0.03 [facility] Comment on above: Performed By: #### C BC ####[facility] Bzlldkypbn3[address] [place] [address]Dr. Chrissy Frazier IG % 0.5 % Normal 0.0-0.5 [facility] Comment on above: Performed By: #### C BC ####[facility] Rnndrofzih5[address] [place] [address]Dr. Tishrowan Frazier LYMPH # 3.7 103/ul Normal 1.2-3.8 [facility] Comment on above: Performed By: #### C BC ####[facility] Vbegkvppvx8656 [place] [address]Dr. Tishrowan Frazier Lymphocytes/100 WBC (Bld) 21.5 % Normal 20.5-60.0 [facility] Comment on above: Performed By: #### C BC ####[facility] Zaqzdkazve3514 [place] [id number]. Tishrowan Frazier MANUAL DIFF REQ NO Normal [facility] Comment on above: Performed By: #### C BC ####[facility] Wlpdttcskq1067 [place] [address]Dr. Chrissy Freddie MCH (RBC) [Entitic mass] 28.1 pg Normal 25.9-34.0 [facility] Comment on above: Performed By: #### C BC ####[facility] Zydjarscwr7793 [place] [id number]. Chrissy Frazier MCHC (RBC) [Mass/Vol] 33.1 g/dL Normal 29.9-35.2 [facility] Comment on above: Performed By: #### C BC ####[facility] Wjplvwaghj7606 [place] [id number]. Chrissy Frazier MCV (RBC) [Entitic vol] 84.7 fL Normal 80.0-94.0 [facility] Comment on above: Performed By: #### C BC ####[facility] Skyrweuyqn5548 [place] [id number]. Chrissy Frazier MONO # 0.7 103/ul Normal 0.3-0.8 [facility] Comment on above: Performed By: #### C BC ####[facility] Cwfxqsopdg2235 [place] [address]Dr. Chrissy Frazier Monocytes/100 WBC (Bld) 4.2 % Normal 1.7-12.0 [facility] Comment on above: Performed By: #### C BC ####[facility] Rdadotpvvk[address] [place], [place] [address]Dr. Chrissy Frazier NEUT # 12.4 103/ul Critically high 1.4-6.5 [facility] Comment on above: Performed By: #### C BC ####[facility] Uaklqwtymu7583 [place] [id number]. Chrissy Frazier Neutrophils/100 WBC (Bld) 72.7 % Normal 43.0-75.0 [facility] Comment on above: Performed By: #### C BC ####[facility] Vozdsjaduf0872 [place] [id number]. Chrissy Frazier Platelet mean volume (Bld) [Entitic vol] 10.9 fL Normal 9.5-13.5 [facility] Comment on above: Performed By: #### C BC ####[facility] Byalxfadrb7912 [place] [id number]. Chrissy Freddie PLT 386 103/ul Normal 150-450 [facility] Comment on above: Performed By: #### C BC ####[facility] Ntkrlseetq9442 [place], [place] [address]Jo. Chrissy Frazier RBC 5.70 106/ul Normal 4.70-6.10 [facility] Comment on above: Performed By: #### C BC ####[facility] Nrdnhdhzgc2323 [place] [id number]. Chrissy Frazier WBC 17.0 103/ul Critically high 4.0-11.0 [facility] Comment on above: Performed By: #### C BC ####[facility] Hvhemysmwk4706 [place] [phone]. Chrissy Frazier Covid-19 PCR (CVDTBH)on 08-21 SARS-CoV-2 (COVID-19) RNA RHIANNON+probe Ql (Unsp spec) Not detected Normal NOT DETECTED [facility] Comment on above: Result Comment: When [...] for this test is supported by the [place] [employer] and Human Service's declaration that [...] be used). Performed By: #### C VDTBH ####[facility] Wnndzdngii7662 [place] [phone]. Chrissy Frazier LACTATE/LACTIC ACIDon 2021 Lactate [Moles/Vol] 7.1 mmol/L Critically high 0.4-1.9 [facility] Comment on above: Performed By: #### L ACT ####[facility] Zxvtyupris6649 [place] [phone]. Chrissy Frazier Lactate [Moles/Vol] 8.6 mmol/L Critically high 0.4-1.9 [facility] Comment on above: Performed By: #### L ACT ####[facility] Wfmhzknvhb[address] [place], [place] [address]Dr. Chrissy Frazier LIPASEon 09-02-2022 Lipase [Catalytic activity/Vol] 60.0 U/L Critically low 73.0-393.0 [facility] Comment on above: Performed By: #### A MY, CMP, LIPA ####[facility] Uspwglevsl[address] [place], [place] [address]Dr. Chrissy Frazier POINT OF CARE GLUCOSEon 08-21 Glucose [Mass/Vol] 140 mg/dL Critically high 74-106 [facility] Comment on above: Performed By: #### P OCGLUC ####[facility] Eqjqzudqmc[address] [place], [place] [address]Dr. Chrissy Frazier PROF 14(COMP METB)on 022 Albumin [Mass/Vol] 4.3 g/dL Normal 3.4-5.0 [facility] Comment on above: Performed By: #### A MY, CMP, LIPA ####[facility] Byaakmarta[address] [place], [place] [address]Dr. Chrissy Frazier Albumin/Globulin [Mass ratio] 1.0 {ratio} Normal [facility] Comment on above: Performed By: #### A MY, CMP, LIPA ####[facility] Kqzdllojxf25[address] [place] [address]Dr. Chrissy Frazier ALP [Catalytic activity/Vol] 82 U/L Normal 46-116 [facility] Comment on above: Performed By: #### A MY, CMP, LIPA ####[facility] Wroeicphkx2053 [place] [address]Dr. Chrissy Frazier ALT [Catalytic activity/Vol] 48 U/L Normal 16-63 [facility] Comment on above: Performed By: #### A MY, CMP, LIPA ####[facility] Vxwtkyeroz3623 [place] [address]Dr. Chrissy Frazier Anion gap [Moles/Vol] 25.3 mmol/L Normal [facility] Comment on above: Performed By: #### A MY, CMP, LIPA ####[facility] Hlcudowqwg8995 [place] [address]Dr. Chrissy Frazier AST [Catalytic activity/Vol] 33 U/L Normal 15-37 [facility] Comment on above: Performed By: #### A MY, CMP, LIPA ####[facility] Zgkbcpgsak[address] [place], [place] [address]Dr. Chrissy Frazier Bilirubin [Mass/Vol] 0.7 mg/dL Normal 0.2-1.0 [facility] Comment on above: Performed By: #### A MY, CMP, LIPA ####[facility] Rlyfwbwman25[address] [place], [place] [address]Dr. Chrissy Frazier Calcium [Mass/Vol] 9.5 mg/dL Normal 8.5-10.1 [facility] Comment on above: Performed By: #### A MY, CMP, LIPA ####[facility] Flrgmexkab14[address] [place], [place] [address]Dr. Chrissy Frazier Chloride [Moles/Vol] 100 mmol/L Normal 98-107 [facility] Comment on above: Performed By: #### A MY, CMP, LIPA ####[facility] Jrdjexpfgu69[address] [place], [place] [address]Dr. Chrissy Frazier CO2 [Moles/Vol] 14.2 mmol/L Critically low 21.0-32.0 [facility] Comment on above: Performed By: #### A MY, CMP, LIPA ####[facility] Bqfcwibcnq9[address] [place], [place] [address]Dr. Chrissy Frazier Creatinine [Mass/Vol] 1.70 mg/dL Critically high 0.70-1.30 [facility] Comment on above: Performed By: #### A MY, CMP, LIPA ####[facility] Symtnqhnbk[address] [place], [place] [address]Dr. Chrissy Frazier EGFR-AF ICELANDIC 57 mL/min/1.73m2 Critically low >=60 [facility] Comment on above: Performed By: #### A MY, CMP, LIPA ####[facility] Torotvwicm7212 [place] [id number]. Chrissy Frazier EGFR-NON AF ICELANDIC 47 mL/min/1.73m2 Critically low >=60 [facility] Comment on above: Performed By: #### A MY, CMP, LIPA ####[facility] Bozysztjaz5[address] [place] [address]Dr. Chrissy Frazier Globulin (S) [Mass/Vol] 4.2 g/dL Normal [facility] Comment on above: Performed By: #### A MY, CMP, LIPA ####[facility] Pcdwrzispl0204 [place] [address]Dr. Chrissy Frazier Glucose [Mass/Vol] 212 mg/dL Critically high 74-106 [facility] Comment on above: Performed By: #### A MY, CMP, LIPA ####[facility] Bhxrgsduvz2747 [place] [address]Dr. Chrissy Frazier Potassium [Moles/Vol] 3.5 mmol/L Normal 3.5-5.1 [facility] Comment on above: Performed By: #### A MY, CMP, LIPA ####[facility] Uizuxzvqdu3933 [place] [address]Dr. Chrissy Frazier Protein [Mass/Vol] 8.5 g/dL Critically high 6.4-8.2 [facility] Comment on above: Performed By: #### A MY, CMP, LIPA ####[facility] Qnlqttmlwz7251 [place] [address]Dr. Chrissy Frazier Sodium [Moles/Vol] 136 mmol/L Normal 136-145 [facility] Comment on above: Performed By: #### A MY, CMP, LIPA ####[facility] Rbtqbpkdbz5316 [place] [address]Dr. Chrissy Frazier Urea nitrogen [Mass/Vol] 9.0 mg/dL Normal 7.0-18.0 [facility] Comment on above: Performed By: #### A MY, CMP, LIPA ####[facility] Aaduomadmx2859 [place] [address]Dr. Yilan Frazier Urea nitrogen/Creatinine [Mass ratio] 5.3 mg/mg Normal [facility] Comment on above: Performed By: #### A MY, CMP, LIPA ####[facility] Vjeqvjgqfz[address] [place], [place] [address]Dr. Chrissy Frazier AMYLASEon 07-07-2022 Amylase [Catalytic activity/Vol] 33 U/L Normal 25-115 [facility] Comment on above: Performed By: #### C MP, TERRENCE, BNP, LIPA ####[facility] Oebgesedwj[address] [place], [place] [address]Dr. Chrissy Frazier BNPon 07-07-2022 Natriuretic peptide B (Bld) [Mass/Vol] 29.0 pg/mL Normal <=450.0 [facility] Comment on above: Performed By: #### C MP, TERRENCE, BNP, LIPA ####[facility] Gwyzewyhxz97[address] [place], [place] [address]Dr. Chrissy Frazier CBC AUTO DIFFon 07-07-2022 BASO # 0.0 103/ul Normal 0.0-0.1 [facility] Comment on above: Performed By: #### C BC ####[facility] Jpyyprlbmh[address] [place], [place] [address]Dr. Chrissy Frazier Basophils/100 WBC (Bld) 0.4 % Normal 0.2-2.0 [facility] Comment on above: Performed By: #### C BC ####[facility] Tlktglulnd[address] [place], [place] [address]Dr. Chrissy Frazier EO # 0.3 103/ul Normal 0.0-0.7 [facility] Comment on above: Performed By: #### C BC ####[facility] Tnxagryfqb94[address] [place], [place] [address]Dr. Chrissy Frazier Eosinophils/100 WBC (Bld) 3.0 % Normal 0.9-7.0 [facility] Comment on above: Performed By: #### C BC ####[facility] Lcrukqjzpm9[address] [place], [place] [address]Dr. Chrissy Frazier Erythrocyte distribution width (RBC) [Ratio] 14.0 % Normal 11.0-15.0 [facility] Comment on above: Performed By: #### C BC ####[facility] Hheydonzpj8301 [place] [address]DrNancy Frazier Hematocrit (Bld) [Volume fraction] 42.8 % Normal 42.0-54.0 [facility] Comment on above: Performed By: #### C BC ####[facility] Hrvmenmulg9598 [place] [address]DrNancy Frazier Hemoglobin (Bld) [Mass/Vol] 14.3 g/dL Normal 14.0-18.0 [facility] Comment on above: Result Comment: IV F LUIDS RUNNING Performed By: #### C BC ####[facility] Txruuqjayh66[address] [place], [place] [address]DrNancy Frazier IG # 0.05 10e3/ul Critically high 0.00-0.03 [facility] Comment on above: Performed By: #### C BC ####[facility] Hdmxmwkwlu37[address] [place], [place] [address]DrNancy Frazier IG % 0.5 % Normal 0.0-0.5 [facility] Comment on above: Performed By: #### C BC ####[facility] Zsvyztuwad[address] [place], [place] [address]DrNancy Frazier LYMPH # 2.4 103/ul Normal 1.2-3.8 [facility] Comment on above: Performed By: #### C BC ####[facility] Weufnmccrj[address] [place], [place] [address]DrNancy Frazier Lymphocytes/100 WBC (Bld) 25.5 % Normal 20.5-60.0 [facility] Comment on above: Performed By: #### C BC ####[facility] Nkhfnocfze[address] [place], [place] [address]DrNancy Frazier MANUAL DIFF REQ NO Normal [facility] Comment on above: Performed By: #### C BC ####[facility] Hmfvwmaxmc7324 [place] [address]DrNancy Frazier MCH (RBC) [Entitic mass] 28.5 pg Normal 25.9-34.0 [facility] Comment on above: Performed By: #### C BC ####[facility] Ksdbsbkerr[address] [place] [address]Dr. Chrissy Frazier MCHC (RBC) [Mass/Vol] 33.4 g/dL Normal 29.9-35.2 [facility] Comment on above: Performed By: #### C BC ####[facility] Avuatzscas0383 [place] [address]Dr. Chrissy Frazier MCV (RBC) [Entitic vol] 85.3 fL Normal 80.0-94.0 [facility] Comment on above: Performed By: #### C BC ####[facility] Qwznssgfnj24[address] [place], [place] [address]DrNancy Frazier MONO # 0.7 103/ul Normal 0.3-0.8 [facility] Comment on above: Performed By: #### C BC ####[facility] Rjxcxlhkku[address] [place], [place] [address]Dr. Chrissy Frazier Monocytes/100 WBC (Bld) 7.8 % Normal 1.7-12.0 [facility] Comment on above: Performed By: #### C BC ####[facility] Zkjpqxsntp23[address] [place], [place] [address]Dr. Chrissy Frazier NEUT # 5.8 103/ul Normal 1.4-6.5 [facility] Comment on above: Performed By: #### C BC ####[facility] Kstgixbuec[address] [place], [place] [address]Dr. Chrissy Frazier Neutrophils/100 WBC (Bld) 62.8 % Normal 43.0-75.0 [facility] Comment on above: Performed By: #### C BC ####[facility] Mkasuzetai27[address] [place], [place] [address]Dr. Chrissy Frazier Platelet mean volume (Bld) [Entitic vol] 10.8 fL Normal 9.5-13.5 [facility] Comment on above: Performed By: #### C BC ####[facility] Nbnqxutecm[address] [place], [place] [address]Dr. Chrissy Frazier PLT 310 103/ul Normal 150-450 [facility] Comment on above: Performed By: #### C BC ####[facility] Yansygssch9593 [place] [id number]. Chrissy Frazier RBC 5.02 106/ul Normal 4.70-6.10 [facility] Comment on above: Performed By: #### C BC ####[facility] Jcyefytwgg7881 [place], [place] [address]Mk. Chrissy Frazier WBC 9.3 103/ul Normal 4.0-11.0 [facility] Comment on above: Performed By: #### C BC ####[facility] Ylvcvcjzke2317 [place] [id number]. Tishrowan Freddie CULTURE URINEon 07-07-2022 CULTURE URINE Culture Observations: NO GROWTH. Normal [facility] Comment on above: Performed By: #### U RCX ####[facility] Bmipeszkxq4634 [place] [id number]. Chrissy Frazier DRUG SCREEN RAPID (URINE)on 07-07-2022 AMP Negative Normal NEGATIVE [facility] Comment on above: Performed By: #### D RUGRPD ####[facility] Fpewdnpayt4588 [place] [id number]. Chrissy Frazier BAR Negative Normal NEGATIVE [facility] Comment on above: Performed By: #### D RUGRPD ####[facility] Hfcnvjmwpz2429 [place] [id number]. Chrissy Frazier BUP Negative Normal NEGATIVE [facility] Comment on above: Performed By: #### D RUGRPD ####[facility] Ciyelelotr8918 [place] [id number]. Chrissy Frazier BZO Positive Abnormal NEGATIVE [facility] Comment on above: Performed By: #### D RUGRPD ####[facility] Jvozxhiluo3244 [place] [id number]. Chrissy Frazier LAUREN Negative Normal NEGATIVE [facility] Comment on above: Performed By: #### D RUGRPD ####[facility] Igkinmdzzq2415 [place] [id number]. Chrissy Frazier CUT-OFFS SEE BELOW Normal [facility] Comment on above: Result Comment: AMP (Amphetamine): 500ng/mL, BAR (Barbituates): 200 ng/mL, BZO (Benzodiazepines): 150 ng/mL, BUP (Buprenorphine): 10 ng/mL, LAUREN (Cocaine): 150 ng/mL, mAMP (Methamphetamine): 500 ng/mL, MTD (Methadone): 200 ng/mL, OPI (Opiates): 100 ng/mL, OXY (Oxycodone): 100 ng/mL, PCP (Phencyclidine): 25 ng/mL, PPX (Propoxyphene): 300 ng/mL, THC (Cannabinoids): 50 ng/mL, TCA (Trycyclic Antidepressants): 300 ng/mL Performed By: #### D RUGRPD ####[facility] Wwrpzcovdc[address] [place], [place] [address]Dr. [facility] DRUG CUT HEADER DRUG CLASS TEST SYSTEM CUT-OFF CONCENTRATIONS ARE FOLLOWS: Normal [facility] Comment on above: Performed By: #### D RUGRPD ####[facility] Cfhweqwzxb8[address] [place], [place] [address]Dr. Tishrowan [facility] mAMP Negative Normal NEGATIVE [facility] Comment on above: Performed By: #### D RUGRPD ####[facility] Wtcstuvdyk[address] [place], [place] [address]Dr. Chrissy [facility] MTD Negative Normal NEGATIVE [facility] Comment on above: Performed By: #### D RUGRPD ####[facility] Xxmrjfsrss[address] [place], [place] [address]Dr. Chrissy [facility] OPI Negative Normal NEGATIVE [facility] Comment on above: Performed By: #### D RUGRPD ####[facility] Teqjkstmvx9[address] [place], [place] [address]Dr. Chrissy Frazier OXY Negative Normal NEGATIVE [facility] Comment on above: Performed By: #### D RUGRPD ####[facility] Pjrquhyokc[address] [place], [place] [address]Dr. Chrissy [facility] PCP Negative Normal NEGATIVE [facility] Comment on above: Performed By: #### D RUGRPD ####[facility] Lcevtkslad[address] [place], [place] [address]Dr. Chrissy Freddie PPX Negative Normal NEGATIVE [facility] Comment on above: Performed By: #### D RUGRPD ####[facility] Cetaewuhcl6853 [place] [address]Dr. Chrissy Freddie TCA Positive Abnormal NEGATIVE [facility] Comment on above: Performed By: #### D RUGRPD ####[facility] Czhonsmoiz1117 [place] [address]Dr. Chrissy Freddie THC Positive Abnormal NEGATIVE [facility] Comment on above: Performed By: #### D RUGRPD ####[facility] Eofkmhhnxa5354 [place] [address]Dr. Tishrowan Frazier LIPASEon 07-07-2022 Lipase [Catalytic activity/Vol] 118.0 U/L Normal 73.0-393.0 [facility] Comment on above: Performed By: #### L IPA ####[facility] Ouaqgjrlhm[address] [place], [place] [address]Dr. Chrissy Frazier Lipase [Catalytic activity/Vol] 114.0 U/L Normal 73.0-393.0 [facility] Comment on above: Performed By: #### C MP, TERRENCE, BNP, LIPA ####[facility] Dhohtnyhrr[address] [place], [place] [address]Dr. Chrissy Frazier PROF 14(COMP METB)on 022 Albumin [Mass/Vol] 3.4 g/dL Normal 3.4-5.0 [facility] Comment on above: Performed By: #### C MP, TERRENCE, BNP, LIPA ####[facility] Mpcasnmfzk7550 [place] [address]Dr. Chrissy Frazier Albumin/Globulin [Mass ratio] 1.1 {ratio} Normal [facility] Comment on above: Performed By: #### C MP, TERRENCE, BNP, LIPA ####[facility] Rusocjvrhj0715 [place] [address]Dr. Chrissy Frazier ALP [Catalytic activity/Vol] 68 U/L Normal 46-116 [facility] Comment on above: Performed By: #### C MP, TERRENCE, BNP, LIPA ####[facility] Wzxoduvpdd8070 [place] [address]Dr. Chrissy Frazier ALT [Catalytic activity/Vol] 93 U/L Critically high 16-63 [facility] Comment on above: Performed By: #### C MP, TERRENCE, BNP, LIPA ####[facility] Ahgwyumhpx5334 [place] [address]Dr. Chrissy Frazier Anion gap [Moles/Vol] 14.4 mmol/L Normal [facility] Comment on above: Performed By: #### C MP, TERRENCE, BNP, LIPA ####[facility] Zrtocsfolr6504 [place] [address]Dr. Chrissy Frazier AST [Catalytic activity/Vol] 33 U/L Normal 15-37 [facility] Comment on above: Performed By: #### C MP, TERRENCE, BNP, LIPA ####[facility] Gwfamutjex[address] [place] [address]Dr. Chrissy Frazier Bilirubin [Mass/Vol] 0.9 mg/dL Normal 0.2-1.0 [facility] Comment on above: Performed By: #### C MP, TERRENCE, BNP, LIPA ####[facility] Yeeghycmtw[address] [place], [place] [address]Dr. Chrissy Frazier Calcium [Mass/Vol] 8.2 mg/dL Critically low 8.5-10.1 [facility] Comment on above: Performed By: #### C MP, TERRENCE, BNP, LIPA ####[facility] Akvmnyakxr[address] [place], [place] [address]Dr. Chrissy Frazier Chloride [Moles/Vol] 103 mmol/L Normal 98-107 [facility] Comment on above: Performed By: #### C MP, TERRENCE, BNP, LIPA ####[facility] Bwjevfcjpe[address] [place], [place] [address]Dr. Chrissy Frazier CO2 [Moles/Vol] 22.9 mmol/L Normal 21.0-32.0 [facility] Comment on above: Performed By: #### C MP, TERRENCE, BNP, LIPA ####[facility] Ejkfoexxkx47[address] [place], [place] [address]Dr. Chrissy Frazier Creatinine [Mass/Vol] 1.07 mg/dL Normal 0.70-1.30 [facility] Comment on above: Performed By: #### C MP, TERRENCE, BNP, LIPA ####[facility] Cwsuoexzrf20[address] [place] [address]Dr. Chrissy Frazier EGFR-AF ICELANDIC >60 Normal >=60 [facility] Comment on above: Performed By: #### C MP, TERRENCE, BNP, LIPA ####[facility] [address]przzxi[address] [place] [address]Dr. Chrissy Frazier EGFR-NON AF ICELANDIC >60 Normal >=60 [facility] Comment on above: Performed By: #### C MP, TERRENCE, BNP, LIPA ####[facility] Rqszanfdvf56[address] [place] [address]Dr. Chrissy Frazier Globulin (S) [Mass/Vol] 3.2 g/dL Normal [facility] Comment on above: Performed By: #### C MP, TERRENCE, BNP, LIPA ####[facility] Jdwjtaleib[address] [place], [place] [address]Dr. Chrissy Frazier Glucose [Mass/Vol] 96 mg/dL Normal 74-106 [facility] Comment on above: Performed By: #### C MP, TERRENCE, BNP, LIPA ####[facility] Bzxgbxosmv94[address] [place] [address]Dr. Chrissy Frazier Potassium [Moles/Vol] 3.3 mmol/L Critically low 3.5-5.1 [facility] Comment on above: Performed By: #### C MP, TERRENCE, BNP, LIPA ####[facility] Qtjrxuctiq4[address] [place] [address]Dr. Chrissy Frazier Protein [Mass/Vol] 6.6 g/dL Normal 6.4-8.2 [facility] Comment on above: Performed By: #### C MP, TERRENCE, BNP, LIPA ####[facility] Eczcxoqpjh[address] [place] [address]Dr. Chrissy Frazier Sodium [Moles/Vol] 137 mmol/L Normal 136-145 [facility] Comment on above: Performed By: #### C MP, TERRENCE, BNP, LIPA ####[facility] Zxcgrxbbqc3[address] [place], [place] [address]Dr. Chrissy Frazier Urea nitrogen [Mass/Vol] 13.0 mg/dL Normal 7.0-18.0 [facility] Comment on above: Performed By: #### C MP, TERRENCE, BNP, LIPA ####[facility] Srfyccfnpn[address] [place], [place] [address]Dr. Chrissy Frazier Urea nitrogen/Creatinine [Mass ratio] 12.1 mg/mg Normal [facility] Comment on above: Performed By: #### C MP, TERRENCE, BNP, LIPA ####[facility] Ldxprbhjzs69[address] [place], [place] [address]Dr. Chrissy Frazier UA RANDOM W/MICROSCOPICon BACTERIA TRACE Abnormal NONE SEEN [facility] Comment on above: Performed By: #### U AMIC ####[facility] Fjinmhvghq5050[address] [place], [place] [address]Dr. Chrissy Frazier Bilirubin Ql (U) Negative Normal NEGATIVE [facility] Comment on above: Performed By: #### U AMIC ####[facility] Ytoiwpazsg[address] [place], [place] [address]Dr. Chrissy Frazier CAST NONE SEEN Normal NONE SEEN [facility] Comment on above: Performed By: #### U AMIC ####[facility] Ewlhlpehfj[address] [place], [place] [address]Dr. Chrissy Farzier Clarity (U) CLEAR Normal CLEAR [facility] Comment on above: Performed By: #### U AMIC ####[facility] Oyqtknmlzb004[address] [place], [place] [address]Dr. Chrissy Frazier Color (U) YELLOW Normal YELLOW [facility] Comment on above: Performed By: #### U AMIC ####[facility] Pmndxhmwdq632[address] [place], [place] [address]Dr. Chrissy Frazier Crystals LM Nom (Urine sed) SEEN Abnormal NONE SEEN [facility] Comment on above: Performed By: #### U AMIC ####[facility] Qtpyyqiauv8815[address] [place], [place] [address]Dr. Chrissy Frazier Epithelial cells LM Ql (Urine sed) RARE Normal NONE SEEN /RARE [facility] Comment on above: Performed By: #### U AMIC ####[facility] Xmhlvpmzfl11[address] [place] [address]Dr. Chrissy Frazier Glucose Ql (U) Negative Normal NEGATIVE [facility] Comment on above: Performed By: #### U AMIC ####[facility] Ozrkdupmei747[address] [place], [place] [address]Dr. Chrissy Frazier Hemoglobin Ql (U) Negative Normal NEGATIVE [facility] Comment on above: Performed By: #### U AMIC ####[facility] Wgbxlojngm0500[address] [place], [place] [address]Dr. Chrissy Frazier Ketones Ql (U) 15 mg/dl Abnormal NEGATIVE [facility] Comment on above: Performed By: #### U AMIC ####[facility] Paemgciazd3870[address] [place], [place] [address]Dr. Chrissy Frazier LEUKOCYTES Negative Normal NEGATIVE [facility] Comment on above: Performed By: #### U AMIC ####[facility] Llekvhqfct9199[address] [place], [place] [address]Dr. Chrissy Frazier MUCOUS NONE SEEN Normal NONE SEEN [facility] Comment on above: Performed By: #### U AMIC ####[facility] Nimmwwixyb6225[address] [place], [place] [address]Dr. Chrissy Frazier Nitrite Ql (U) Negative Normal NEGATIVE [facility] Comment on above: Performed By: #### U AMIC ####[facility] Orhkhwjbpu285[address] [place], [place] [address]Dr. Chrissy Frazier pH (U) 6.0 [pH] Normal 5-9 [facility] Comment on above: Performed By: #### U AMIC ####[facility] Mtjajxeuhn5809[address] [place], [place] [address]Dr. Chrissy Frazier RBC 0-2 Normal 0-2 [facility] Comment on above: Performed By: #### U AMIC ####[facility] Pdrxhogqdv8712[address] [place], [place] [address]Dr. Chrissy Frazier SPEC GRAVITY 1.015 Normal 1.005-<=1.025 [facility] Comment on above: Performed By: #### U AMIC ####[facility] Afledjfkfe88[address] [place] [address]Dr. Chrissy Frazier UA PROTEIN Negative Normal NEGATIVE/ TRACE [facility] Comment on above: Performed By: #### U AMIC ####[facility] Dbfhsgmtcr4924 [place] [address]Dr. Chrissy Frazier URIC ACID CRYSTALS RARE Normal [facility] Comment on above: Performed By: #### U AMIC ####[facility] Wdbxgsnmpi4131 [place] [address]Dr. Chrissy Freddie Urobilinogen Qn (U) 0.2 {Estrellita'U}/dL Normal 0.2 - 1. 0 [facility] Comment on above: Performed By: #### U AMIC ####[facility] Qpwuhtczsu8427[address] [place], [place] [address]Dr. Tishrowan Frazier WBC 0-2 Abnormal NONE SEEN [facility] Comment on above: Performed By: #### U AMIC ####[facility] Sbsefshjoq884[address] [place], [place] [address]Dr. Chrissy Freddie AMYLASEon 07-06-2022 Amylase [Catalytic activity/Vol] 37 U/L Normal 25-115 [facility] Comment on above: Performed By: #### C MP, LIPA, TERRENCE ####[facility] Ahirlnukfm[address] [place], [place] [address]Dr. Chrissy Frazier CBC AUTO DIFFon 07-06-2022 BASO # 0.1 103/ul Normal 0.0-0.1 [facility] Comment on above: Performed By: #### C BC ####[facility] Mkosbhbuzs[address] [place], [place] [address]Dr. Tishrowan Frazier Basophils/100 WBC (Bld) 0.4 % Normal 0.2-2.0 [facility] Comment on above: Performed By: #### C BC ####[facility] Qhfvqmieqz4409[address] [place], [place] [address]Dr. Chrissy Frazier EO # 0.1 103/ul Normal 0.0-0.7 [facility] Comment on above: Performed By: #### C BC ####[facility] Joxunnuxer19[address] [place] [address]Dr. Chrissy Frazier Eosinophils/100 WBC (Bld) 0.5 % Critically low 0.9-7.0 [facility] Comment on above: Performed By: #### C BC ####[facility] Hzethgvvwa5938[address] [place], [place] [address]Dr. Chrissy Frazier Erythrocyte distribution width (RBC) [Ratio] 13.6 % Normal 11.0-15.0 [facility] Comment on above: Performed By: #### C BC ####[facility] Jfnqkjtwjs6032[address] [place], [place] [address]Dr. Chrissy Frazier Hematocrit (Bld) [Volume fraction] 47.9 % Normal 42.0-54.0 [facility] Comment on above: Performed By: #### C BC ####[facility] Azzboskrlg185[address] [place], [place] [address]Dr. Chrissy Frazier Hemoglobin (Bld) [Mass/Vol] 16.4 g/dL Normal 14.0-18.0 [facility] Comment on above: Performed By: #### C BC ####[facility] Kdhszrzkgi1347[address] [place], [place] [address]Dr. Chrissy Frazier IG # 0.09 10e3/ul Critically high 0.00-0.03 [facility] Comment on above: Performed By: #### C BC ####[facility] Sctbzxezwr8365[address] [place], [place] [address]Dr. Chrissy Frazier IG % 0.6 % Critically high 0.0-0.5 [facility] Comment on above: Performed By: #### C BC ####[facility] Tahrbtcymt3785[address] [place], [place] [address]Dr. Chrissy Frazier LYMPH # 2.5 103/ul Normal 1.2-3.8 [facility] Comment on above: Performed By: #### C BC ####[facility] Mjzosivfqq9489[address] [place], [place] [address]Dr. Chrissy Frazier Lymphocytes/100 WBC (Bld) 16.7 % Critically low 20.5-60.0 [facility] Comment on above: Performed By: #### C BC ####[facility] Otyivnypoy99[address] [place] [address]DrNancy Frazier MANUAL DIFF REQ NO Normal [facility] Comment on above: Performed By: #### C BC ####[facility] Whkorwlall9060 [place] [address]DrNancy Frazier MCH (RBC) [Entitic mass] 28.1 pg Normal 25.9-34.0 [facility] Comment on above: Performed By: #### C BC ####[facility] Mymroxnxww5795[address] [place], [place] [address]DrNancy Frazier MCHC (RBC) [Mass/Vol] 34.2 g/dL Normal 29.9-35.2 [facility] Comment on above: Performed By: #### C BC ####[facility] Eiwrqlscpi634[address] [place], [place] [address]DrNancy Frazier MCV (RBC) [Entitic vol] 82.2 fL Normal 80.0-94.0 [facility] Comment on above: Performed By: #### C BC ####[facility] Baprbtmyca6516[address] [place], [place] [address]DrNancy Frazier MONO # 1.0 103/ul Critically high 0.3-0.8 [facility] Comment on above: Performed By: #### C BC ####[facility] Noxjbogljx3601[address] [place], [place] [address]DrNancy Frazier Monocytes/100 WBC (Bld) 6.7 % Normal 1.7-12.0 [facility] Comment on above: Performed By: #### C BC ####[facility] Qufiylzgaz9180[address] [place], [place] [address]DrNancy Frazier NEUT # 11.3 103/ul Critically high 1.4-6.5 [facility] Comment on above: Performed By: #### C BC ####[facility] Pvkvordwbt454[address] [place], [place] [address]DrNancy Frazier Neutrophils/100 WBC (Bld) 75.1 % Critically high 43.0-75.0 [facility] Comment on above: Performed By: #### C BC ####[facility] Mruqckngpm6418 [place] [id number]. Chrissy Frazier Platelet mean volume (Bld) [Entitic vol] 10.6 fL Normal 9.5-13.5 [facility] Comment on above: Performed By: #### C BC ####[facility] Jrbxqeebzr0476 [place] [id number]. Chrissy Frazier PLT 416 103/ul Normal 150-450 [facility] Comment on above: Performed By: #### C BC ####[facility] Tlvhqdtxhr7065 [place] [id number]. Chrissy Frazier RBC 5.83 106/ul Normal 4.70-6.10 [facility] Comment on above: Performed By: #### C BC ####[facility] Zuhdvlzleq7999 [place] [id number]. Chrissy Frazier WBC 15.0 103/ul Critically high 4.0-11.0 [facility] Comment on above: Performed By: #### C BC ####[facility] Vhwvzfsepp1095 [place] [id number]. Chrissy Frazier [facility] SARS-CoV-2 (COVID-19) RNA RHIANNON+probe Ql (Unsp spec) Not detected Normal NOT DETECTED [facility] Comment on above: Result Comment: When [...] for this test is supported by the [employer] Manager of Health and Human Service's declaration [...] be used). Performed By: #### C VDTBH ####[facility] Fmrnmgultb0657 [place] [address]Dr. Chrissy Frazier LIPASEon 07-06-2022 Lipase [Catalytic activity/Vol] 130.0 U/L Normal 73.0-393.0 [facility] Comment on above: Performed By: #### C OSWALD ADAIR, TERRENCE ####[facility] Leioihfgtb4[address] [place] [address]Dr. Chrissy Frazier PROF 14(COMP METB)on 022 Albumin [Mass/Vol] 4.4 g/dL Normal 3.4-5.0 [facility] Comment on above: Performed By: #### C MANA LIPA, TERRENCE ####[facility] Dlincpbmep512[address] [place], [place] [address]Dr. Chrissy Frazier Albumin/Globulin [Mass ratio] 1.1 {ratio} Normal [facility] Comment on above: Performed By: #### C OSWALD ADAIR TERRENCE ####[facility] Wiwhzgvdhf9630[address] [place], [place] [address]Dr. Chrissy Frazier ALP [Catalytic activity/Vol] 83 U/L Normal 46-116 [facility] Comment on above: Performed By: #### C MANA LIPA, TERRENCE ####[facility] Cgzffepflh1717 [place] [address]Dr. Chrissy Frazier ALT [Catalytic activity/Vol] 107 U/L Critically high 16-63 [facility] Comment on above: Performed By: #### C TESSA ADAIRA, TERRENCE ####[facility] Jennxyhmha8037 [place] [address]Dr. Chrissy Frazier Anion gap [Moles/Vol] 20.5 mmol/L Normal [facility] Comment on above: Performed By: #### C MANA LIPA, TERRENCE ####[facility] Mnrrfhzvbd9[address] [place], [place] [address]Dr. Chrissy Frazier AST [Catalytic activity/Vol] 46 U/L Critically high 15-37 [facility] Comment on above: Performed By: #### C OSWALD ADAIR, TERRENCE ####[facility] Bofpnctjps0971 [place] [address]Dr. Chrissy Frazier Bilirubin [Mass/Vol] 1.2 mg/dL Critically high 0.2-1.0 [facility] Comment on above: Performed By: #### C TESSA ADAIRA, TERRENCE ####[facility] Fhzvsiwlvx[address] [place], [place] [address]Dr. Chrissy Frazier Calcium [Mass/Vol] 9.1 mg/dL Normal 8.5-10.1 [facility] Comment on above: Performed By: #### C MANA LIPA, TERRENCE ####[facility] Usjgnbizly479[address] [place], [place] [address]Dr. Chrissy Frazier Chloride [Moles/Vol] 100 mmol/L Normal 98-107 [facility] Comment on above: Performed By: #### C TESSA ADAIRA, TERRENCE ####[facility] Ewtwkrmlno[address] [place], [place] [address]Dr. Chrissy Frazier CO2 [Moles/Vol] 18.6 mmol/L Critically low 21.0-32.0 [facility] Comment on above: Performed By: #### C MANA LIPA, TERRENCE ####[facility] Sgetmmvhft5938[address] [place], [place] [address]Dr. Chrissy Frazier Creatinine [Mass/Vol] 1.44 mg/dL Critically high 0.70-1.30 [facility] Comment on above: Performed By: #### C MANA LIPA, TERRENCE ####[facility] Bgihjakwwk[address] [place], [place] [address]Dr. Chrissy Frazier EGFR-AF ICELANDIC >60 Normal >=60 [facility] Comment on above: Performed By: #### C MP, LIPA, TERRENCE ####[facility] Npymulsddm7522[address] [place], [place] [address]Dr. Chrissy Frazier EGFR-NON AF ICELANDIC 57 mL/min/1.73m2 Critically low >=60 [facility] Comment on above: Performed By: #### C MANA LIPA, TERRENCE ####[facility] Tcbnpaafdt6092 [place] [address]Dr. Chrissy Frazier Globulin (S) [Mass/Vol] 4.0 g/dL Normal [facility] Comment on above: Performed By: #### C MANA LIPA, TERRENCE ####[facility] Dgnzcekdjl5236 [place] [address]Dr. Chrissy Frazier Glucose [Mass/Vol] 117 mg/dL Critically high 74-106 [facility] Comment on above: Performed By: #### C MANA LIPA, TERRENCE ####[facility] Ivacjkewfc924[address] [place], [place] [address]Dr. Chrissy Frazier Potassium [Moles/Vol] 3.1 mmol/L Critically low 3.5-5.1 [facility] Comment on above: Performed By: #### C MANA LIPA, TERRENCE ####[facility] Wuocunknme473[address] [place], [place] [address]Dr. Chrissy Frazier Protein [Mass/Vol] 8.4 g/dL Critically high 6.4-8.2 [facility] Comment on above: Performed By: #### C TESSA ADAIRA, TERRENCE ####[facility] Wlfosyyzkx439[address] [place], [place] [address]Dr. Chrissy Frazier Sodium [Moles/Vol] 136 mmol/L Normal 136-145 [facility] Comment on above: Performed By: #### C MANA LIPA, TERRENCE ####[facility] Joindxikvd769[address] [place], [place] [address]Dr. Chrissy Frazier Urea nitrogen [Mass/Vol] 15.0 mg/dL Normal 7.0-18.0 [facility] Comment on above: Performed By: #### C MANA LIPA, TERRENCE ####[facility] Pwhtccvcyk[address] [place], [place] [address]Dr. Chrissy Frazier Urea nitrogen/Creatinine [Mass ratio] 10.4 mg/mg Normal [facility] Comment on above: Performed By: #### C MANA LIPA, TERRENCE ####[facility] Uepewbmamp9[address] [place] [address]Dr. Chrissy Freddie CBC AUTO DIFFon 07-05-2022 BASO # 0.0 103/ul Normal 0.0-0.1 [facility] Comment on above: Performed By: #### C BC ####[facility] Wpmuweecbv9[address] [place], [place] [address]Dr. Chrissy Frazier Basophils/100 WBC (Bld) 0.3 % Normal 0.2-2.0 [facility] Comment on above: Performed By: #### C BC ####[facility] Lvjzrhqrgz24[address] [place], [place] [address]Dr. Chrissy Frazier EO # 0.2 103/ul Normal 0.0-0.7 [facility] Comment on above: Performed By: #### C BC ####[facility] Bhmabylgmu3824[address] [place], [place] [address]Dr. Chrissy Frazier Eosinophils/100 WBC (Bld) 1.5 % Normal 0.9-7.0 [facility] Comment on above: Performed By: #### C BC ####[facility] Idtzlbyzyb670[address] [place], [place] [address]Dr. Tishrowan Frazier Erythrocyte distribution width (RBC) [Ratio] 13.9 % Normal 11.0-15.0 [facility] Comment on above: Performed By: #### C BC ####[facility] Iluhibjwdb719[address] [place], [place] [address]Dr. Chrissy Frazier Hematocrit (Bld) [Volume fraction] 44.5 % Normal 42.0-54.0 [facility] Comment on above: Performed By: #### C BC ####[facility] Qaouzijmze2720[address] [place], [place] [address]Dr. Chrissy Frazier Hemoglobin (Bld) [Mass/Vol] 14.8 g/dL Normal 14.0-18.0 [facility] Comment on above: Performed By: #### C BC ####[facility] Ofnfxsoebd8[address] [place], [place] [address]Dr. Chrissy Frazier IG # 0.05 10e3/ul Critically high 0.00-0.03 [facility] Comment on above: Performed By: #### C BC ####[facility] Zvlkurstmq7590 [place] [id number]. Chrissy Frazier IG % 0.4 % Normal 0.0-0.5 [facility] Comment on above: Performed By: #### C BC ####[facility] Ajafdqatxr9167 [place] [id number]. Chrissy Frazier LYMPH # 3.3 103/ul Normal 1.2-3.8 [facility] Comment on above: Performed By: #### C BC ####[facility] Qundvqghsk4449 [place] [id number]. Chrissy Frazier Lymphocytes/100 WBC (Bld) 29.1 % Normal 20.5-60.0 [facility] Comment on above: Performed By: #### C BC ####[facility] Uedaeunlgf49[address] [place] [address]Dr. Chrissy Frazier MANUAL DIFF REQ NO Normal [facility] Comment on above: Performed By: #### C BC ####[facility] Scaauyuonh5782 [place] [id number]. Chrissy Frazier MCH (RBC) [Entitic mass] 28.2 pg Normal 25.9-34.0 [facility] Comment on above: Performed By: #### C BC ####[facility] Llgqtewhwy0466 [place] [id number]. Chrissy Frazier MCHC (RBC) [Mass/Vol] 33.3 g/dL Normal 29.9-35.2 [facility] Comment on above: Performed By: #### C BC ####[facility] Yyesevbclp0560 [place] [id number]. Chrissy Frazier MCV (RBC) [Entitic vol] 84.9 fL Normal 80.0-94.0 [facility] Comment on above: Performed By: #### C BC ####[facility] Lxgsvywuqn3381 [place] [id number]. Chrissy Freddie MONO # 0.6 103/ul Normal 0.3-0.8 [facility] Comment on above: Performed By: #### C BC ####[facility] Knryxolmse1620 [place] [id number]. Chrissy Frazier Monocytes/100 WBC (Bld) 5.4 % Normal 1.7-12.0 [facility] Comment on above: Performed By: #### C BC ####[facility] Glymhnhnxd5679 [place] [id number]. Chrissy Frazier NEUT # 7.1 103/ul Critically high 1.4-6.5 [facility] Comment on above: Performed By: #### C BC ####[facility] Yfvxywrmlg7561 [place] [id number]. Chrissy Frazier Neutrophils/100 WBC (Bld) 63.3 % Normal 43.0-75.0 [facility] Comment on above: Performed By: #### C BC ####[facility] Omrozbmjvs9618 [place] [address]Dr. Chrissy Frazier Platelet mean volume (Bld) [Entitic vol] 9.9 fL Normal 9.5-13.5 [facility] Comment on above: Performed By: #### C BC ####[facility] Yaxdduqehs3450 [place] [address]Dr. Chrissy Freddie PLT 339 103/ul Normal 150-450 [facility] Comment on above: Performed By: #### C BC ####[facility] Zhlpvlatlr8785 [place] [id number]. Tishrowan Frazier RBC 5.24 106/ul Normal 4.70-6.10 [facility] Comment on above: Performed By: #### C BC ####[facility] Mhhngkhgmi3522 [place] [id number]. Chrissy Frazier WBC 11.2 103/ul Critically high 4.0-11.0 [facility] Comment on above: Performed By: #### C BC ####[facility] Lygjnvavmr1433 [place] [address]Dr. Chrissy Frazier PROF 14(COMP METB)on 022 Albumin [Mass/Vol] 3.8 g/dL Normal 3.4-5.0 [facility] Comment on above: Performed By: #### C MP ####[facility] Kmfwundyal[address] [place] [id number]. Chrissy Freddie Albumin/Globulin [Mass ratio] 1.1 {ratio} Normal [facility] Comment on above: Performed By: #### C MP ####[facility] Nxynolsvvf1599 [place] [id number]. Chrissy Freddie ALP [Catalytic activity/Vol] 67 U/L Normal 46-116 [facility] Comment on above: Performed By: #### C MP ####[facility] Uwwdbbrhao8372 [place] [address]Dr. Chrissy Freddie ALT [Catalytic activity/Vol] 75 U/L Critically high 16-63 [facility] Comment on above: Performed By: #### C MP ####[facility] Mnethhaezr4243 [place] [address]Dr. Chrissy Frazier Anion gap [Moles/Vol] 14.3 mmol/L Normal [facility] Comment on above: Performed By: #### C MP ####[facility] Sorxpeczuu2556 [place] [address]Dr. Chrissy Freddie AST [Catalytic activity/Vol] 40 U/L Critically high 15-37 [facility] Comment on above: Performed By: #### C MP ####[facility] Jxayarqbpm8432 [place] [address]Dr. Chrissy Frazier Bilirubin [Mass/Vol] 0.9 mg/dL Normal 0.2-1.0 [facility] Comment on above: Performed By: #### C MP ####[facility] Onhvjzyfyv4325 [place] [id number]. Chrissy Frazier Calcium [Mass/Vol] 8.4 mg/dL Critically low 8.5-10.1 [facility] Comment on above: Performed By: #### C MP ####[facility] Ohzzqjoelw[address] [place] [address]Dr. Chrissy Frazier Chloride [Moles/Vol] 104 mmol/L Normal 98-107 [facility] Comment on above: Performed By: #### C MP ####[facility] Afbmbpuite4510 [place] [id number]. Chrissy Frazier CO2 [Moles/Vol] 24.1 mmol/L Normal 21.0-32.0 [facility] Comment on above: Performed By: #### C MP ####[facility] Domoxylnwf7302 [place] [phone]. Chrissy Frazier Creatinine [Mass/Vol] 1.11 mg/dL Normal 0.70-1.30 [facility] Comment on above: Performed By: #### C MP ####[facility] Hccqzdavtm2301 [place] [id number]. Chrissy Frazier EGFR-AF ICELANDIC >60 Normal >=60 [facility] Comment on above: Performed By: #### C MP ####[facility] Jegkvncjna7803 [place] [address]Dr. Chrissy Frazier EGFR-NON AF ICELANDIC >60 Normal >=60 [facility] Comment on above: Performed By: #### C MP ####[facility] Wtaylqiice[address] [place], [place] [address]Dr. Chrissy Frazier Globulin (S) [Mass/Vol] 3.6 g/dL Normal [facility] Comment on above: Performed By: #### C MP ####[facility] Qxjnpaybfu043[address] [place], [place] [address]Dr. Chrissy Frazier Glucose [Mass/Vol] 89 mg/dL Normal 74-106 [facility] Comment on above: Performed By: #### C MP ####[facility] Virquggics5910 [place] [address]Dr. Chrissy Frazier Potassium [Moles/Vol] 3.4 mmol/L Critically low 3.5-5.1 [facility] Comment on above: Performed By: #### C MP ####[facility] Peivatcxsm87[address] [place], [place] [address]Dr. Chrissy Freddie Protein [Mass/Vol] 7.4 g/dL Normal 6.4-8.2 [facility] Comment on above: Performed By: #### C MP ####[facility] Egkbayradk[address] [place], [place] [address]Dr. Chrissy Frazier Sodium [Moles/Vol] 139 mmol/L Normal 136-145 [facility] Comment on above: Performed By: #### C MP ####[facility] Xficnkwtlm[address] [place], [place] [address]Dr. Chrissy Frazier Urea nitrogen [Mass/Vol] 10.0 mg/dL Normal 7.0-18.0 [facility] Comment on above: Performed By: #### C MP ####[facility] Rmomuywtxb78[address] [place], [place] [address]Dr. Chrissy Frazier Urea nitrogen/Creatinine [Mass ratio] 9.0 mg/mg Normal [facility] Comment on above: Performed By: #### C MP ####[facility] Bgjzgznrei68[address] [place], [place] [address]Dr. Chrissy Frazier CBC AUTO DIFFon 07-04-2022 BASO # 0.0 103/ul Normal 0.0-0.1 [facility] Comment on above: Performed By: #### C BC ####[facility] Tbbscsgeap[address] [place], [place] [address]Dr. Chrissy Freddie Basophils/100 WBC (Bld) 0.2 % Normal 0.2-2.0 [facility] Comment on above: Performed By: #### C BC ####[facility] Kxusjqaqxy[address] [place], [place] [address]Dr. Chrissy Frazier EO # 0.0 103/ul Normal 0.0-0.7 [facility] Comment on above: Performed By: #### C BC ####[facility] Kogtboylcc[address] [place], [place] [address]Dr. Chrissy Freddie Eosinophils/100 WBC (Bld) 0.3 % Critically low 0.9-7.0 [facility] Comment on above: Performed By: #### C BC ####[facility] Wnexixdvtc9289[address] [place], [place] [address]Dr. Chrissy Frazier Erythrocyte distribution width (RBC) [Ratio] 14.0 % Normal 11.0-15.0 [facility] Comment on above: Performed By: #### C BC ####[facility] Tyobirbxbb8[address] [place] [address]Dr. Chrissy Frazier Hematocrit (Bld) [Volume fraction] 43.2 % Normal 42.0-54.0 [facility] Comment on above: Performed By: #### C BC ####[facility] Zddpxvzshj6718 [place] [address]Dr. Chrissy Frazier Hemoglobin (Bld) [Mass/Vol] 14.6 g/dL Normal 14.0-18.0 [facility] Comment on above: Performed By: #### C BC ####[facility] Xhzqotgmjq5487 [place] [address]Dr. Tishrowan Freddie IG # 0.11 10e3/ul Critically high 0.00-0.03 [facility] Comment on above: Performed By: #### C BC ####[facility] Ldedvnhctu4933 [place] [address]Dr. Chrissy Frazier IG % 0.8 % Critically high 0.0-0.5 [facility] Comment on above: Performed By: #### C BC ####[facility] Jbvdeqhbht7473 [place] [address]Dr. Chrissy Frazier LYMPH # 2.6 103/ul Normal 1.2-3.8 [facility] Comment on above: Performed By: #### C BC ####[facility] Cjhcwpfilf0261 [place] [address]Dr. Tishrowan Frazier Lymphocytes/100 WBC (Bld) 18.3 % Critically low 20.5-60.0 [facility] Comment on above: Performed By: #### C BC ####[facility] Cezptbrdbl8850 [place] [address]Dr. Tishrowan Frazier MANUAL DIFF REQ NO Normal [facility] Comment on above: Performed By: #### C BC ####[facility] Nalwidrqhz364[address] [place], [place] [address]Dr. Chrissy Frazier MCH (RBC) [Entitic mass] 28.1 pg Normal 25.9-34.0 [facility] Comment on above: Performed By: #### C BC ####[facility] Jqwjzkancs4673 [place] [id number]. Chrissy Frazier MCHC (RBC) [Mass/Vol] 33.8 g/dL Normal 29.9-35.2 [facility] Comment on above: Performed By: #### C BC ####[facility] Pqzzievugc8776 [place] [id number]. Chrissy Frazier MCV (RBC) [Entitic vol] 83.2 fL Normal 80.0-94.0 [facility] Comment on above: Performed By: #### C BC ####[facility] Fqupmvssme6026 [place] [id number]. Chrissy Frazier MONO # 0.7 103/ul Normal 0.3-0.8 [facility] Comment on above: Performed By: #### C BC ####[facility] Zejuqthiqw3003 [place] [address]Dr. Tishrowan Frazier Monocytes/100 WBC (Bld) 5.3 % Normal 1.7-12.0 [facility] Comment on above: Performed By: #### C BC ####[facility] Opiilcvmll6220 [place] [id number]. Chrissy Frazier NEUT # 10.5 103/ul Critically high 1.4-6.5 [facility] Comment on above: Performed By: #### C BC ####[facility] Vlckofcoci6019 [place] [id number]. Chrissy Frazier Neutrophils/100 WBC (Bld) 75.1 % Critically high 43.0-75.0 [facility] Comment on above: Performed By: #### C BC ####[facility] Lovxeknozy2728 [place] [id number]. Chrissy Frazier Platelet mean volume (Bld) [Entitic vol] 10.6 fL Normal 9.5-13.5 [facility] Comment on above: Performed By: #### C BC ####[facility] Ukctxvcelz8772 [place] [id number]. Chrissy Freddie PLT 309 103/ul Normal 150-450 [facility] Comment on above: Performed By: #### C BC ####[facility] Upcezitses8892 [place] [address]Dr. Chrissy Frazier RBC 5.19 106/ul Normal 4.70-6.10 [facility] Comment on above: Performed By: #### C BC ####[facility] Alktihzfjg6699 [place] [address]Dr. Chrissy Frazier WBC 14.0 103/ul Critically high 4.0-11.0 [facility] Comment on above: Performed By: #### C BC ####[facility] Uqstafbqum2634 [place] [address]Dr. Chrissy Frazier PROF 14(COMP METB)on 022 Albumin [Mass/Vol] 4.0 g/dL Normal 3.4-5.0 [facility] Comment on above: Performed By: #### C MP ####[facility] Zwlqczlxrl750[address] [place], [place] [address]Dr. Chrissy Frazier Albumin/Globulin [Mass ratio] 1.1 {ratio} Normal [facility] Comment on above: Performed By: #### C MP ####[facility] Ixqxjfcymi456[address] [place], [place] [address]Dr. Chrissy Frazier ALP [Catalytic activity/Vol] 67 U/L Normal 46-116 [facility] Comment on above: Performed By: #### C MP ####[facility] Fxcrsicaxs6220[address] [place], [place] [address]Dr. Chrissy Frazier ALT [Catalytic activity/Vol] 40 U/L Normal 16-63 [facility] Comment on above: Performed By: #### C MP ####[facility] Hogseycllt7818[address] [place], [place] [address]Dr. Chrissy Frazier Anion gap [Moles/Vol] 17.7 mmol/L Normal [facility] Comment on above: Performed By: #### C MP ####[facility] Eexvrwbwvu044[address] [place], [place] [address]Dr. Chrissy Frazier AST [Catalytic activity/Vol] 27 U/L Normal 15-37 [facility] Comment on above: Performed By: #### C MP ####[facility] Heiijimube422[address] [place], [place] [address]Dr. Chrissy Frazier Bilirubin [Mass/Vol] 0.8 mg/dL Normal 0.2-1.0 [facility] Comment on above: Performed By: #### C MP ####[facility] Vpkbobpmap1745 [place] [address]Dr. Chrissy Frazier Calcium [Mass/Vol] 8.8 mg/dL Normal 8.5-10.1 [facility] Comment on above: Performed By: #### C MP ####[facility] Qwuanytpwx7223 [place] [address]Dr. Chrissy Frazier Chloride [Moles/Vol] 105 mmol/L Normal 98-107 [facility] Comment on above: Performed By: #### C MP ####[facility] Sjxsmxcopm9445 [place] [address]Dr. Chrissy Frazier CO2 [Moles/Vol] 16.5 mmol/L Critically low 21.0-32.0 [facility] Comment on above: Performed By: #### C MP ####[facility] Ulpxonwocp70668[address] [place], [place] [address]Dr. Chrissy Frazier Creatinine [Mass/Vol] 1.02 mg/dL Normal 0.70-1.30 [facility] Comment on above: Performed By: #### C MP ####[facility] Hvookjybfh1200[address] [place], [place] [address]Dr. Chrissy Frazier EGFR-AF ICELANDIC >60 Normal >=60 [facility] Comment on above: Performed By: #### C MP ####[facility] Oatggaqjlt7621 [place] [address]Dr. Chrissy Freddie EGFR-NON AF ICELANDIC >60 Normal >=60 [facility] Comment on above: Performed By: #### C MP ####[facility] Imvywqtmgj3832[address] [place], [place] [address]Dr. Tishrowan Freddie Globulin (S) [Mass/Vol] 3.7 g/dL Normal [facility] Comment on above: Performed By: #### C MP ####[facility] Nitfoexdeg5173 [place] [address]Dr. Tishrowan Frazier Glucose [Mass/Vol] 106 mg/dL Normal 74-106 [facility] Comment on above: Performed By: #### C MP ####[facility] Clokuwryvo3520 [place] [address]Dr. Chrissy Freddie Potassium [Moles/Vol] 3.2 mmol/L Critically low 3.5-5.1 [facility] Comment on above: Performed By: #### C MP ####[facility] Mvuxgyouoo8045[address] [place], [place] [address]Dr. Chrissy Freddie Protein [Mass/Vol] 7.7 g/dL Normal 6.4-8.2 [facility] Comment on above: Performed By: #### C MP ####[facility] Vxiuwtpoyg434[address] [place], [place] [address]Dr. Chrissy Frazier Sodium [Moles/Vol] 136 mmol/L Normal 136-145 [facility] Comment on above: Performed By: #### C MP ####[facility] Jrmljlcoxp09[address] [place], [place] [address]Dr. Chrissy Freddie Urea nitrogen [Mass/Vol] 10.0 mg/dL Normal 7.0-18.0 [facility] Comment on above: Performed By: #### C MP ####[facility] Uxotydjeew190[address] [place], [place] [address]Dr. Tishrowan Freddie Urea nitrogen/Creatinine [Mass ratio] 9.8 mg/mg Normal [facility] Comment on above: Performed By: #### C MP ####[facility] Vxrlmgcpin834[address] [place], [place] [address]Dr. Chrissy Freddie CBC AUTO DIFFon 07-03-2022 BASO # 0.1 103/ul Normal 0.0-0.1 [facility] Comment on above: Performed By: #### C BC ####[facility] Zxzxjpfltr3620[address] [place], [place] [address]Dr. Chrissy Frazier Basophils/100 WBC (Bld) 0.5 % Normal 0.2-2.0 [facility] Comment on above: Performed By: #### C BC ####[facility] Ujudrdyfbj509[address] [place], [place] [address]Dr. Chrissy Frazier EO # 0.1 103/ul Normal 0.0-0.7 [facility] Comment on above: Performed By: #### C BC ####[facility] Cucuhxvari8286 [place] [address]Dr. Chrissy Frazier Eosinophils/100 WBC (Bld) 1.3 % Normal 0.9-7.0 [facility] Comment on above: Performed By: #### C BC ####[facility] Eqmzuzjtij9323 [place] [address]Dr. Chrissy Farzier Erythrocyte distribution width (RBC) [Ratio] 14.2 % Normal 11.0-15.0 [facility] Comment on above: Performed By: #### C BC ####[facility] Pfpbttqjph458[address] [place], [place] [address]Dr. Chrissy Frazier Hematocrit (Bld) [Volume fraction] 41.7 % Critically low 42.0-54.0 [facility] Comment on above: Performed By: #### C BC ####[facility] Gxrlnnwmbr0110[address] [place], [place] [address]Dr. Chrissy Frazier Hemoglobin (Bld) [Mass/Vol] 13.6 g/dL Critically low 14.0-18.0 [facility] Comment on above: Performed By: #### C BC ####[facility] Bxilimrhnz805[address] [place], [place] [address]Dr. Chrissy Frazier IG # 0.04 10e3/ul Critically high 0.00-0.03 [facility] Comment on above: Performed By: #### C BC ####[facility] Uljwemedst4775 [place] [address]Dr. Chrissy Frazier IG % 0.4 % Normal 0.0-0.5 [facility] Comment on above: Performed By: #### C BC ####[facility] Rfnxzgpzhd9909[address] [place], [place] [address]Dr. Chrissy Frazier LYMPH # 3.5 103/ul Normal 1.2-3.8 [facility] Comment on above: Performed By: #### C BC ####[facility] Zjdyqbiggz8860[address] [place], [place] [address]Dr. Chrissy Frazier Lymphocytes/100 WBC (Bld) 33.5 % Normal 20.5-60.0 [facility] Comment on above: Performed By: #### C BC ####[facility] Hgrokaidtl1555 [place] [address]Dr. Chrissy Frazier MANUAL DIFF REQ NO Normal [facility] Comment on above: Performed By: #### C BC ####[facility] Afuhngbuxf6577 [place] [address]Dr. Chrissy Frazier MCH (RBC) [Entitic mass] 27.9 pg Normal 25.9-34.0 [facility] Comment on above: Performed By: #### C BC ####[facility] Pqzffatlzd7171 [place] [address]Dr. Chrissy Frazier MCHC (RBC) [Mass/Vol] 32.6 g/dL Normal 29.9-35.2 [facility] Comment on above: Performed By: #### C BC ####[facility] Ihoqdtbxei8061 [place] [address]Dr. Chrissy Frazier MCV (RBC) [Entitic vol] 85.6 fL Normal 80.0-94.0 [facility] Comment on above: Performed By: #### C BC ####[facility] Sywyiibvfl0767 [place] [address]Dr. Chrissy Frazier MONO # 0.7 103/ul Normal 0.3-0.8 [facility] Comment on above: Performed By: #### C BC ####[facility] Dzjjpvbqxo5421 [place] [address]Dr. Chrissy Frazier Monocytes/100 WBC (Bld) 6.5 % Normal 1.7-12.0 [facility] Comment on above: Performed By: #### C BC ####[facility] Vnzxlygfpl4366 [place] [address]DrNancy Frazier NEUT # 6.1 103/ul Normal 1.4-6.5 [facility] Comment on above: Performed By: #### C BC ####[facility] Zjktajhplx0465[address] [place], [place] [address]Dr. Chrissy Frazier Neutrophils/100 WBC (Bld) 57.8 % Normal 43.0-75.0 [facility] Comment on above: Performed By: #### C BC ####[facility] Bglewvecxh2139 [place] [address]Dr. Tishrowan Freddie Platelet mean volume (Bld) [Entitic vol] 10.4 fL Normal 9.5-13.5 [facility] Comment on above: Performed By: #### C BC ####[facility] Nieqojwkek2903 [place] [address]DrNancy Frazier PLT 288 103/ul Normal 150-450 [facility] Comment on above: Performed By: #### C BC ####[facility] Gqkvgxvamu1652 [place] [address]DrNancy Frazier RBC 4.87 106/ul Normal 4.70-6.10 [facility] Comment on above: Performed By: #### C BC ####[facility] Pqcrlgiqww960[address] [place], [place] [address]DrNancy Frazier WBC 10.5 103/ul Normal 4.0-11.0 [facility] Comment on above: Performed By: #### C BC ####[facility] Pxbwrqzaqu0520[address] [place], [place] [address]DrNancy Frazier PROF 14(COMP METB)on 022 Albumin [Mass/Vol] 3.6 g/dL Normal 3.4-5.0 [facility] Comment on above: Performed By: #### C MP ####[facility] Nqlkrudrnc3493 [place] [address]DrNancy Frazier Albumin/Globulin [Mass ratio] 1.1 {ratio} Normal [facility] Comment on above: Performed By: #### C MP ####[facility] Pgyrmdwsyx2504 [place] [address]DrNancy Frazier ALP [Catalytic activity/Vol] 58 U/L Normal 46-116 [facility] Comment on above: Performed By: #### C MP ####[facility] Yvtdteuurp924[address] [place], [place] [address]Dr. Yirowan Frazier ALT [Catalytic activity/Vol] 30 U/L Normal 16-63 [facility] Comment on above: Performed By: #### C MP ####[facility] Pyzaroakup0379 [place] [address]Dr. Tishrowan Freddie Anion gap [Moles/Vol] 14.5 mmol/L Normal [facility] Comment on above: Performed By: #### C MP ####[facility] Jvvbebvogu7738[address] [place], [place] [address]Dr. Chrissy Freddie AST [Catalytic activity/Vol] 17 U/L Normal 15-37 [facility] Comment on above: Performed By: #### C MP ####[facility] Vglxwrwktu9528[address] [place], [place] [address]Dr. Chrissy Frazier Bilirubin [Mass/Vol] 0.6 mg/dL Normal 0.2-1.0 [facility] Comment on above: Performed By: #### C MP ####[facility] Pkjcmcygfz1811[address] [place], [place] [address]Dr. Chrissy Frazier Calcium [Mass/Vol] 8.4 mg/dL Critically low 8.5-10.1 [facility] Comment on above: Performed By: #### C MP ####[facility] Yyinocphwo3277[address] [place], [place] [address]Dr. Chrissy Frazier Chloride [Moles/Vol] 106 mmol/L Normal 98-107 [facility] Comment on above: Performed By: #### C MP ####[facility] Ymvdrwqjrr9960[address] [place], [place] [address]Dr. Chrissy Frazier CO2 [Moles/Vol] 22.6 mmol/L Normal 21.0-32.0 [facility] Comment on above: Performed By: #### C MP ####[facility] Tcgiqnygud4289[address] [place], [place] [address]Dr. Chrissy Frazier Creatinine [Mass/Vol] 1.08 mg/dL Normal 0.70-1.30 [facility] Comment on above: Performed By: #### C MP ####[facility] Nvkkcoqayi275[address] [place], [place] [address]Dr. Chrissy Frazier EGFR-AF ICELANDIC >60 Normal >=60 [facility] Comment on above: Performed By: #### C MP ####[facility] Urqgnwefon8530 [place], [place] [address]Dg. Chrissy Frazier EGFR-NON AF ICELANDIC >60 Normal >=60 [facility] Comment on above: Performed By: #### C MP ####[facility] Xmeocrvvij3707 [place], [place] [address]Zz. Chrissy Frazier Globulin (S) [Mass/Vol] 3.3 g/dL Normal [facility] Comment on above: Performed By: #### C MP ####[facility] Kjzinmocvc5965 [place] [id number]. Chrissy Frazier Glucose [Mass/Vol] 94 mg/dL Normal 74-106 [facility] Comment on above: Performed By: #### C MP ####[facility] Yhvidygwgv2850 [place] [id number]. Chrissy Frazier Potassium [Moles/Vol] 3.1 mmol/L Critically low 3.5-5.1 [facility] Comment on above: Performed By: #### C MP ####[facility] Occeqdlnsj2876 [place] [id number]. Chrissy Frazier Protein [Mass/Vol] 6.9 g/dL Normal 6.4-8.2 [facility] Comment on above: Performed By: #### C MP ####[facility] Otziyiirbv4681 [place] [id number]. Chrissy Frazier Sodium [Moles/Vol] 140 mmol/L Normal 136-145 [facility] Comment on above: Performed By: #### C MP ####[facility] Odraybclzc7713 [place] [id number]. Chrissy Frazier Urea nitrogen [Mass/Vol] 10.0 mg/dL Normal 7.0-18.0 [facility] Comment on above: Performed By: #### C MP ####[facility] Xlsfcrscgb8740 [place] [id number]. Chrissy Frazier Urea nitrogen/Creatinine [Mass ratio] 9.3 mg/mg Normal [facility] Comment on above: Performed By: #### C MP ####[facility] Fsxdxqtfxx8[address] [place], [place] [address]Dr. Chrissy Frazier CBC AUTO DIFFon 07-02-2022 BASO # 0.0 103/ul Normal 0.0-0.1 [facility] Comment on above: Performed By: #### C BC ####[facility] Igwclutwnc3205[address] [place], [place] [address]Dr. Chrissy Frazier Basophils/100 WBC (Bld) 0.2 % Normal 0.2-2.0 [facility] Comment on above: Performed By: #### C BC ####[facility] Lmyivccgfq630[address] [place], [place] [address]Dr. Chrissy Frazier EO # 0.0 103/ul Normal 0.0-0.7 [facility] Comment on above: Performed By: #### C BC ####[facility] Sxfdfhaeey3877[address] [place], [place] [address]Dr. Chrissy Frazier Eosinophils/100 WBC (Bld) 0.0 % Critically low 0.9-7.0 [facility] Comment on above: Performed By: #### C BC ####[facility] Dbvfgvbpud4635[address] [place], [place] [address]Dr. Chrissy Frazier Erythrocyte distribution width (RBC) [Ratio] 14.2 % Normal 11.0-15.0 [facility] Comment on above: Performed By: #### C BC ####[facility] Yqsbnyqlez1616[address] [place], [place] [address]Dr. Chrissy Frazier Hematocrit (Bld) [Volume fraction] 46.2 % Normal 42.0-54.0 [facility] Comment on above: Performed By: #### C BC ####[facility] Uvcodqrbae337[address] [place], [place] [address]Dr. Chrissy Frazier Hemoglobin (Bld) [Mass/Vol] 15.2 g/dL Normal 14.0-18.0 [facility] Comment on above: Performed By: #### C BC ####[facility] Emyactirxq6977[address] [place], [place] [address]Dr. Chrissy Frazier IG # 0.07 10e3/ul Critically high 0.00-0.03 [facility] Comment on above: Performed By: #### C BC ####[facility] Siocvvnbgd7052 [place] [id number] Chrissy Freddie IG % 0.4 % Normal 0.0-0.5 [facility] Comment on above: Performed By: #### C BC ####[facility] Zbwdxlpxzh2816 [place] [address]DrNancy Chrissy Freddie LYMPH # 2.8 103/ul Normal 1.2-3.8 [facility] Comment on above: Performed By: #### C BC ####[facility] Oczjhrgttx7026[address] [place], [place] [address]DrNancy Chrissy Freddie Lymphocytes/100 WBC (Bld) 16.7 % Critically low 20.5-60.0 [facility] Comment on above: Performed By: #### C BC ####[facility] Jwqcoiweud049[address] [place], [place] [address]DrNancy Chrissy Freddie MANUAL DIFF REQ NO Normal [facility] Comment on above: Performed By: #### C BC ####[facility] Qgaouhvfty3647[address] [place], [place] [address]DrNancy Chrissy Freddie MCH (RBC) [Entitic mass] 28.3 pg Normal 25.9-34.0 [facility] Comment on above: Performed By: #### C BC ####[facility] Qvnjzrovog0610 [place] [address]DrNancy Chrissy Freddie MCHC (RBC) [Mass/Vol] 32.9 g/dL Normal 29.9-35.2 [facility] Comment on above: Performed By: #### C BC ####[facility] Evybywlphm3430[address] [place], [place] [address]DrNancy Winstonrowan Freddie MCV (RBC) [Entitic vol] 86.0 fL Normal 80.0-94.0 [facility] Comment on above: Performed By: #### C BC ####[facility] Pcirjzrpan335[address] [place], [place] [address]DrNancy Frazier MONO # 0.9 103/ul Critically high 0.3-0.8 [facility] Comment on above: Performed By: #### C BC ####[facility] Govpxwiixs0330 [place] [id number]. Chrissy Frazier Monocytes/100 WBC (Bld) 5.1 % Normal 1.7-12.0 [facility] Comment on above: Performed By: #### C BC ####[facility] Vpiukoywdv2214 [place] [id number]. Chrissy Frazier NEUT # 13.2 103/ul Critically high 1.4-6.5 [facility] Comment on above: Performed By: #### C BC ####[facility] Vytidlhvzn4172 [place] [address]Dr. Chrissy Frazier Neutrophils/100 WBC (Bld) 77.6 % Critically high 43.0-75.0 [facility] Comment on above: Performed By: #### C BC ####[facility] Odtnirmxlh8490[address] [place], [place] [address]Dr. Chrissy Frazier Platelet mean volume (Bld) [Entitic vol] 11.6 fL Normal 9.5-13.5 [facility] Comment on above: Performed By: #### C BC ####[facility] Hejrmxyfpk1367 [place] [address]Dr. Chrissy Frazier PLT 317 103/ul Normal 150-450 [facility] Comment on above: Performed By: #### C BC ####[facility] Rltqeeaptw[address] [place], [place] [address]Dr. Chrissy Frazier RBC 5.37 106/ul Normal 4.70-6.10 [facility] Comment on above: Performed By: #### C BC ####[facility] Vyddwabxue8533 [place] [id number]. Chrissy Frazier WBC 17.1 103/ul Critically high 4.0-11.0 [facility] Comment on above: Performed By: #### C BC ####[facility] Jvmsqpjmkg5281 [place] [id number]. Chrissy Frazier CT ABD/PELV W MARGOTHon 07-02-[address] ABD/PELV W CON Normal [facility] H PYLORI ANTIBODY IGGon 06-21 H. PYLORI IGG ABS 0.13 Index Value Normal 0.00-0.79 [facility] Comment on above: Result Comment: Nega tive <0.80 Equivocal 0.80 - 0.89 Positive >0.89 Performed By: #### H PYLLC ####[facility] Hdvqtolasy7475 [place] [address]Dr. Chrissy Frazier PROF 14(COMP METB)on 022 Albumin [Mass/Vol] 3.8 g/dL Normal 3.4-5.0 [facility] Comment on above: Performed By: #### C MP ####[facility] Chhkqiclpj9034[address] [place], [place] [address]Dr. Chrissy Frazier Albumin/Globulin [Mass ratio] 1.0 {ratio} Normal [facility] Comment on above: Performed By: #### C MP ####[facility] Ijzpjcdcge88[address] [place], [place] [address]Dr. Chrissy Frazier ALP [Catalytic activity/Vol] 68 U/L Normal 46-116 [facility] Comment on above: Performed By: #### C MP ####[facility] Ldstpmwqys16[address] [place], [place] [address]Dr. Chrissy Frazier ALT [Catalytic activity/Vol] 34 U/L Normal 16-63 [facility] Comment on above: Performed By: #### C MP ####[facility] Mvuqiybuwy867[address] [place], [place] [address]Dr. Chrissy Frazier Anion gap [Moles/Vol] 17.9 mmol/L Normal [facility] Comment on above: Performed By: #### C MP ####[facility] Bishravzal224[address] [place], [place] [address]Dr. Chrissy Frazier AST [Catalytic activity/Vol] 24 U/L Normal 15-37 [facility] Comment on above: Performed By: #### C MP ####[facility] Wivdiqopoo7[address] [place], [place] [address]Dr. Chrissy Frazier Bilirubin [Mass/Vol] 0.6 mg/dL Normal 0.2-1.0 [facility] [facility] Comment on above: Performed By: #### C MP ####[facility] Nskivdvxwa[address] [place] [address]Dr. Chrissy Frazier Calcium [Mass/Vol] 8.8 mg/dL Normal 8.5-10.1 [facility] Comment on above: Performed By: #### C MP ####[facility] Amexmnnrua[address] [place] [address]Dr. Chrissy Frazier Chloride [Moles/Vol] 105 mmol/L Normal 98-107 [facility] Comment on above: Performed By: #### C MP ####[facility] Uhwuhvrawp[address] [place], [place] [address]Dr. Chrissy Frazier CO2 [Moles/Vol] 18.8 mmol/L Critically low 21.0-32.0 [facility] Comment on above: Performed By: #### C MP ####[facility] Oauwvomgqj[address] [place], [place] [address]Dr. Chrissy Frazier Creatinine [Mass/Vol] 1.15 mg/dL Normal 0.70-1.30 [facility] Comment on above: Performed By: #### C MP ####[facility] Qtvtdmkmjp95[address] [place], [place] [address]Dr. Chrissy Frazier EGFR-AF ICELANDIC >60 Normal >=60 [facility] Comment on above: Performed By: #### C MP ####[facility] Qructmvrik015[address] [place], [place] [address]Dr. Chrissy Freddie EGFR-NON AF ICELANDIC >60 Normal >=60 [facility] Comment on above: Performed By: #### C MP ####[facility] Gvhpeypfww27[address] [place], [place] [address]Dr. Chrissy Freddie Globulin (S) [Mass/Vol] 3.9 g/dL Normal [facility] Comment on above: Performed By: #### C MP ####[facility] Wnnjmnvpoq235[address] [place], [place] [address]Dr. Chrissy Frazier Glucose [Mass/Vol] 124 mg/dL Critically high 74-106 [facility] Comment on above: Performed By: #### C MP ####[facility] V[address]azgrvfl[address] [place] [address]Dr. Chrissy Frazier Potassium [Moles/Vol] 3.7 mmol/L Normal 3.5-5.1 [facility] Comment on above: Performed By: #### C MP ####[facility] Ovogrjhpbh13[address] [place] [address]Dr. Chrissy Freddie Protein [Mass/Vol] 7.7 g/dL Normal 6.4-8.2 [facility] Comment on above: Performed By: #### C MP ####[facility] Xhrdaqcaeo24[address] [place], [place] [address]Dr. Tishrowan Frazier Sodium [Moles/Vol] 138 mmol/L Normal 136-145 [facility] Comment on above: Performed By: #### C MP ####[facility] Pwpznzmill[address] [place], [place] [address]Dr. Tishrowan Frazier Urea nitrogen [Mass/Vol] 9.0 mg/dL Normal 7.0-18.0 [facility] Comment on above: Performed By: #### C MP ####[facility] Imkxgsrgjw801[address] [place], [place] [address]Dr. Chrissy Freddie Urea nitrogen/Creatinine [Mass ratio] 7.8 mg/mg Normal [facility] Comment on above: Performed By: #### C MP ####[facility] Fvezuhcffp3838[address] [place], [place] [address]Dr. Chrissy Freddie AMMONIAon 07-01-2022 Ammonia (P) [Moles/Vol] 14 umol/L Normal 11-32 [facility] Comment on above: Performed By: #### A MM ####[facility] Qdmhkusmff318[address] [place], [place] [address]Dr. Tishrowan Frazier AMYLASEon 07-01-2022 Amylase [Catalytic activity/Vol] 32 U/L Normal 25-115 [facility] Comment on above: Performed By: #### A MY, PHOS, CMP, LIPA ####[facility] Thyvaboxcr[address] [place] [address]Dr. Tishrowan Frazier CBC AUTO DIFFon 07-01-2022 BASO # 0.1 103/ul Normal 0.0-0.1 [facility] Comment on above: Performed By: #### C BC ####[facility] Qefmgpdjel15[address] [place] [address]Dr. Chrissy Frazier Basophils/100 WBC (Bld) 0.4 % Normal 0.2-2.0 [facility] Comment on above: Performed By: #### C BC ####[facility] Dkyqfeivgx196[address] [place], [place] [address]Dr. Chrissy Frazier EO # 0.2 103/ul Normal 0.0-0.7 [facility] Comment on above: Performed By: #### C BC ####[facility] Gmjyfhnxhm570[address] [place], [place] [address]Dr. Tishrowan Freddie Eosinophils/100 WBC (Bld) 0.9 % Normal 0.9-7.0 [facility] Comment on above: Performed By: #### C BC ####[facility] Ynmrsdeksa5487[address] [place], [place] [address]Dr. Chrissy Frazier Erythrocyte distribution width (RBC) [Ratio] 13.8 % Normal 11.0-15.0 [facility] Comment on above: Performed By: #### C BC ####[facility] Mmvykxljyh4916[address] [place], [place] [address]Dr. Tishrowan Frazier Hematocrit (Bld) [Volume fraction] 46.3 % Normal 42.0-54.0 [facility] Comment on above: Performed By: #### C BC ####[facility] Iugvkamhzu6017[address] [place], [place] [address]Dr. Tishrowan Frazier Hemoglobin (Bld) [Mass/Vol] 15.4 g/dL Normal 14.0-18.0 [facility] Comment on above: Performed By: #### C BC ####[facility] Exgxkxyxeq4440[address] [place], [place] [address]Dr. Chrissy Frazier IG # 0.05 10e3/ul Critically high 0.00-0.03 [facility] Comment on above: Performed By: #### C BC ####[facility] Nedpnmixdh79[address] [place] [address]Dr. Chrissy Frazier IG % 0.3 % Normal 0.0-0.5 [facility] Comment on above: Performed By: #### C BC ####[facility] Yqotsrrecj0817[address] [place], [place] [address]Dr. Chrissy Frazier LYMPH # 2.0 103/ul Normal 1.2-3.8 [facility] Comment on above: Performed By: #### C BC ####[facility] Mvoubatstx368[address] [place], [place] [address]Dr. Chrissy Frazier Lymphocytes/100 WBC (Bld) 12.9 % Critically low 20.5-60.0 [facility] Comment on above: Performed By: #### C BC ####[facility] Jvsfubngwf657[address] [place], [place] [address]DrNancy Frazier MANUAL DIFF REQ NO Normal [facility] Comment on above: Performed By: #### C BC ####[facility] Cvzweuljfd16[address] [place], [place] [address]Dr. Tishrowan Frazier MCH (RBC) [Entitic mass] 28.6 pg Normal 25.9-34.0 [facility] Comment on above: Performed By: #### C BC ####[facility] Wddwovyqkw3389[address] [place], [place] [address]Dr. Chrissy Freddie MCHC (RBC) [Mass/Vol] 33.3 g/dL Normal 29.9-35.2 [facility] Comment on above: Performed By: #### C BC ####[facility] Aofxiodhrs0250[address] [place], [place] [address]DrNancy Frazier MCV (RBC) [Entitic vol] 86.1 fL Normal 80.0-94.0 [facility] Comment on above: Performed By: #### C BC ####[facility] Vjvmlslpyd1788[address] [place], [place] [address]DrNancy Frazier MONO # 0.5 103/ul Normal 0.3-0.8 [facility] Comment on above: Performed By: #### C BC ####[facility] Xglxvmsekz1095[address] [place], [place] [address]Dr. Chrissy Frazier Monocytes/100 WBC (Bld) 3.0 % Normal 1.7-12.0 [facility] Comment on above: Performed By: #### C BC ####[facility] Tmppuibqgi67[address] [place] [address]Dr. Chrissy Frazier NEUT # 13.0 103/ul Critically high 1.4-6.5 [facility] Comment on above: Performed By: #### C BC ####[facility] Wbbbfycsko7[address] [place] [address]Dr. Chrissy Frazier Neutrophils/100 WBC (Bld) 82.5 % Critically high 43.0-75.0 [facility] Comment on above: Performed By: #### C BC ####[facility] Ykkqeqywoj733[address] [place], [place] [address]Dr. Chrissy Frazier Platelet mean volume (Bld) [Entitic vol] 10.0 fL Normal 9.5-13.5 [facility] Comment on above: Performed By: #### C BC ####[facility] Jzxrmpwuuq8600[address] [place], [place] [address]Dr. Chrissy Frazier PLT 370 103/ul Normal 150-450 [facility] Comment on above: Performed By: #### C BC ####[facility] Amwumgbsdi6347[address] [place], [place] [address]Dr. Chrissy Frazier RBC 5.38 106/ul Normal 4.70-6.10 [facility] Comment on above: Performed By: #### C BC ####[facility] Rwgkdixfch694[address] [place], [place] [address]Dr. Chrissy Frazier WBC 15.8 103/ul Critically high 4.0-11.0 [facility] Comment on above: Performed By: #### C BC ####[facility] Fgzcdnvgvh4738 [place] [address]Dr. Chrissy Frazier CULTURE URINEon 07-01-2022 CULTURE URINE Culture Observations: No growth Normal [facility] Comment on above: Performed By: #### U RCX ####[facility] Iphbhbdwjr307[address] [place], [place] [address]Dr. Chrissy Frazier Covid-19 PCR (CVDTB)on 06-21 SARS-CoV-2 (COVID-19) RNA RHIANNON+probe Ql (Unsp spec) Not detected Normal NOT DETECTED [facility] Comment on above: Result Comment: When [...] for this test is supported by the Parks And Recreation Manager of Health and Human Service's declaration [...] be used). Performed By: #### C VDTBH ####[facility] Xavtpqyyji45[address] [place] [address]Dr. Chrissy Freddie DRUG SCREEN RAPID (URINE)on 07-01-2022 AMP Negative Normal NEGATIVE [facility] Comment on above: Performed By: #### D REYES UAMIC ####[facility] Hddtlvqmce[address] [place] [id number]. Chrissy Frazier BAR Negative Normal NEGATIVE [facility] Comment on above: Performed By: #### D CHAYAD, UAMIC ####[facility] Xqwhsquagw32[address] [place] [id number]. Chrissy Frazier BUP Negative Normal NEGATIVE [facility] Comment on above: Performed By: #### D REYES UAMIC ####[facility] Xrhmiywsiy364[address] [place] [id number]. Tishrowan Frazier BZO Negative Normal NEGATIVE [facility] Comment on above: Performed By: #### D REYES UAMIC ####[facility] Abljxnovuf68[address] [place] [id number]. Chrissy Frazier LAUREN Negative Normal NEGATIVE [facility] Comment on above: Performed By: #### Amelie CHAMBERS UAMIC ####[facility] Ndmaqvvvqw79[address] [place], [place] [address]Dr. Chrissy Frazier CUT-OFFS SEE BELOW Normal [facility] Comment on above: Result Comment: AMP [...] ng/mL Performed By: #### Amelie CHAMBERS UAMIC ####[facility] Bhplfuullc8934[address] [place], [place] [address]Dr. Chrissy Frazier DRUG CUT HEADER DRUG CLASS TEST SYSTEM CUT-OFF CONCENTRATIONS ARE FOLLOWS: Normal [facility] Comment on above: Performed By: #### Amelie CHAMBERS UAMIC ####[facility] Ddztakqcfr8[address] [place], [place] [address]Dr. Chrissy Frazier mAMP Negative Normal NEGATIVE [facility] Comment on above: Performed By: #### Amelie CHAMBERS UAMIC ####[facility] Sthkasrcky1113[address] [place], [place] [address]Dr. Chrissy Frazier MTD Negative Normal NEGATIVE [facility] Comment on above: Performed By: #### Amelie CHAMBERS UAMIC ####[facility] Zprnkwvmpz347[address] [place], [place] [address]Dr. Chrissy Frazier OPI Negative Normal NEGATIVE [facility] Comment on above: Performed By: #### Amelie CHAMBERS UAMIC ####[facility] Lxctuurdpu344[address] [place], [place] [address]Dr. Chrissy Frazier OXY Negative Normal NEGATIVE [facility] Comment on above: Performed By: #### D REYES, UAMIC ####[facility] Jgyjqrulcn34[address] [place] [address]Dr. Chrissy Frazier PCP Negative Normal NEGATIVE [facility] Comment on above: Performed By: #### D REYES, UAMIC ####[facility] Pldadzmhts5[address] [place] [address]Dr. Chrissy Frazier PPX Negative Normal NEGATIVE [facility] Comment on above: Performed By: #### D REYES, UAMIC ####[facility] Eavjzeydfr18[address] [place] [address]Dr. Chrissy Frazier TCA Negative Normal NEGATIVE [facility] Comment on above: Performed By: #### D REYES UAMIC ####[facility] Rkxpohsilk[address] [place], [place] [address]Dr. Chrissy Frazier THC Positive Abnormal NEGATIVE [facility] Comment on above: Performed By: #### D REYES UAMIC ####[facility] Asjqzghpuz7530[address] [place], [place] [address]Dr. Chrissy Frazier LACTATE/LACTIC ACIDon 2021 Lactate [Moles/Vol] 4.4 mmol/L Critically high 0.4-1.9 [facility] Comment on above: Performed By: #### L ACT ####[facility] Aeeufymrmb4516[address] [place], [place] [address]Dr. Chrissy Frazier LIPASEon 07-01-2022 Lipase [Catalytic activity/Vol] 57.0 U/L Critically low 73.0-393.0 [facility] Comment on above: Performed By: #### A MY, PHOS, CMP, LIPA ####[facility] Ukmszyzqnf1464[address] [place], [place] [address]Dr. Chrissy Frazier PHOSPHORUSon 07-01-2022 Phosphate [Mass/Vol] 1.4 mg/dL Critically low 2.6-4.7 [facility] Comment on above: Performed By: #### A MY, PHOS, CMP, LIPA ####[facility] Uwgcmhtvmp7160[address] [place], [place] [address]Dr. Chrissy Frazier PROF 14(COMP METB)on 022 Albumin [Mass/Vol] 4.2 g/dL Normal 3.4-5.0 [facility] Comment on above: Performed By: #### A MY, PHOS, CMP, LIPA ####[facility] Gqcxqkught20[address] [place] [address]Dr. Chrissy Frazier Albumin/Globulin [Mass ratio] 1.1 {ratio} Normal [facility] Comment on above: Performed By: #### A MY, PHOS, CMP, LIPA ####[facility] Assualuvlz06[address] [place] [address]Dr. Chrissy Frazier ALP [Catalytic activity/Vol] 73 U/L Normal 46-116 [facility] Comment on above: Performed By: #### A MY, PHOS, CMP, LIPA ####[facility] Tmzgtktvbx6385 [place] [address]Dr. Chrissy Frazier ALT [Catalytic activity/Vol] 43 U/L Normal 16-63 [facility] Comment on above: Performed By: #### A MY, PHOS, CMP, LIPA ####[facility] Tyzucnnizm3369 [place] [address]Dr. Chrissy Frazier Anion gap [Moles/Vol] 19.0 mmol/L Normal [facility] Comment on above: Performed By: #### A MY, PHOS, CMP, LIPA ####[facility] Bsmynudwrk8364 [place] [address]Dr. Chrissy Frazier AST [Catalytic activity/Vol] 21 U/L Normal 15-37 [facility] Comment on above: Performed By: #### A MY, PHOS, CMP, LIPA ####[facility] Vlqiqlmxef5716 [place] [address]Dr. Chrissy Frazier Bilirubin [Mass/Vol] 0.5 mg/dL Normal 0.2-1.0 [facility] Comment on above: Performed By: #### A MY, PHOS, CMP, LIPA ####[facility] Hfufmjcmar6440 [place] [address]Dr. Chrissy Frazier Calcium [Mass/Vol] 9.3 mg/dL Normal 8.5-10.1 [facility] Comment on above: Performed By: #### A MY, PHOS, CMP, LIPA ####[facility] Endsyxxkyu3585 [place] [address]Dr. Chrissy Frazier Chloride [Moles/Vol] 103 mmol/L Normal 98-107 [facility] Comment on above: Performed By: #### A MY, PHOS, CMP, LIPA ####[facility] Paliigjzxs2593 [place] [address]Dr. Chrissy Frazier CO2 [Moles/Vol] 21.1 mmol/L Normal 21.0-32.0 [facility] Comment on above: Performed By: #### A MY, PHOS, CMP, LIPA ####[facility] Wzvltwirpw[address] [place], [place] [address]Dr. Chrissy Frazier Creatinine [Mass/Vol] 1.44 mg/dL Critically high 0.70-1.30 [facility] Comment on above: Performed By: #### A MY, PHOS, CMP, LIPA ####[facility] Nmxdevzhrj20[address] [place], [place] [address]Dr. Chrissy Frazier EGFR-AF ICELANDIC >60 Normal >=60 [facility] Comment on above: Performed By: #### A MY, PHOS, CMP, LIPA ####[facility] Rtnbjkkwbp6197 [place] [address]Dr. Chrissy Frazier EGFR-NON AF ICELANDIC 57 mL/min/1.73m2 Critically low >=60 [facility] Comment on above: Performed By: #### A MY, PHOS, CMP, LIPA ####[facility] Suxhzpawjr22[address] [place] [address]Dr. Chrissy Frazier Globulin (S) [Mass/Vol] 3.9 g/dL Normal [facility] Comment on above: Performed By: #### A MY, PHOS, CMP, LIPA ####[facility] Icybhmkzpa97[address] [place] [address]Dr. Chrissy Frazier Glucose [Mass/Vol] 148 mg/dL Critically high 74-106 [facility] Comment on above: Performed By: #### A MY, PHOS, CMP, LIPA ####[facility] Eycpzoirjs3810 [place] [address]Dr. Chrissy Frazeir Potassium [Moles/Vol] 3.1 mmol/L Critically low 3.5-5.1 [facility] Comment on above: Performed By: #### A MY, PHOS, CMP, LIPA ####[facility] Oqboytijnb7[address] [place] [address]Dr. Chrissy Frazier Protein [Mass/Vol] 8.1 g/dL Normal 6.4-8.2 [facility] Comment on above: Performed By: #### A MY, PHOS, CMP, LIPA ####[facility] Yxucbmrxje6216 [place] [address]Dr. Chrissy Frazier Sodium [Moles/Vol] 140 mmol/L Normal 136-145 [facility] Comment on above: Performed By: #### A MY, PHOS, CMP, LIPA ####[facility] Ghwacvvfoi0685 [place] [address]Dr. Chrissy Frazier Urea nitrogen [Mass/Vol] 10.0 mg/dL Normal 7.0-18.0 [facility] Comment on above: Performed By: #### A MY, PHOS, CMP, LIPA ####[facility] Pmeegazqfw1334 [place] [address]Dr. Chrissy Frazier Urea nitrogen/Creatinine [Mass ratio] 6.9 mg/mg Normal [facility] Comment on above: Performed By: #### A MY, PHOS, CMP, LIPA ####[facility] Ibbhvcnmhs2164 [place] [address]Dr. Chrissy Freddie UA RANDOM W/MICROSCOPICon BACTERIA TRACE Abnormal NONE SEEN [facility] Comment on above: Performed By: #### D REYES UAMIC ####[facility] Biojmzdujb3362 [place] [address]Dr. Tishrowan Freddie Bilirubin Ql (U) Negative Normal NEGATIVE [facility] Comment on above: Performed By: #### D REYES UAMIC ####[facility] Gowtuyeqts83[address] [place] [address]Dr. Chrissy Frazier CAST NONE SEEN Normal NONE SEEN [facility] Comment on above: Performed By: #### Amelie CHAMBERS UAMIC ####[facility] Qbldrbhake8[address] [place], [place] [address]Dr. Chrissy Frazier Clarity (U) CLEAR Normal CLEAR [facility] Comment on above: Performed By: #### Amelie CHAMBERS UAMIC ####[facility] Isnkzsubbi0114 [place] [address]Dr. Chrissy Frazier Color (U) YELLOW Normal YELLOW [facility] Comment on above: Performed By: #### Amelie CHAMBERS UAMIC ####[facility] Cisjgcmdqp5900[address] [place], [place] [address]Dr. Chrissy Frazier Crystals LM Nom (Urine sed) NONE SEEN Normal NONE SEEN [facility] Comment on above: Performed By: #### Amelie CHAMBERS UAMIC ####[facility] Bikfxqqube939[address] [place], [place] [address]Dr. Chrissy Frazier Epithelial cells LM Ql (Urine sed) RARE Normal NONE SEEN /RARE [facility] Comment on above: Performed By: #### Amelie CHAMBERS UAMIC ####[facility] Jlicktpvri[address] [place], [place] [address]Dr. Chrissy Frazier Glucose Ql (U) Negative Normal NEGATIVE [facility] Comment on above: Performed By: #### Amelie CHAMBERS UAMIC ####[facility] Nfbtxfpnyd127[address] [place], [place] [address]Dr. Chrissy Frazier Hemoglobin Ql (U) Negative Normal NEGATIVE [facility] Comment on above: Performed By: #### Amelie CHAMBERS UAMIC ####[facility] Dihacbvwsv497[address] [place], [place] [address]Dr. Chrissy Frazier Ketones Ql (U) 40 mg/dl Abnormal NEGATIVE [facility] Comment on above: Performed By: #### Amelie CHAMBERS UAMIC ####[facility] Mgcjghjxmx945[address] [place], [place] [address]Dr. Chrissy Frazier LEUKOCYTES Negative Normal NEGATIVE [facility] Comment on above: Performed By: #### Amelie CHAMBERS, UAMIC ####[facility] Qpnlqlkdmz9743 [place] [address]Dr. Chrissy Frazier MUCOUS MODERATE Abnormal NONE SEEN [facility] Comment on above: Performed By: #### Amelie CHAMBERS, UAMIC ####[facility] Xevnkzitnr6811 [place] [address]Dr. Chrissy Frazier Nitrite Ql (U) Negative Normal NEGATIVE [facility] Comment on above: Performed By: #### Amelie CHAMBERS UAMIC ####[facility] Ggtacdmfgl3255[address] [place], [place] [address]Dr. Chrissy Frazier pH (U) 6.0 [pH] Normal 5-9 [facility] Comment on above: Performed By: #### Amelie CHAMBERS UAMIC ####[facility] Paraqkgsux544[address] [place], [place] [address]Dr. Chrissy Frazier RBC 0-2 Normal 0-2 [facility] Comment on above: Performed By: #### Amelie CHAMBERS UAMIC ####[facility] Nfsnawrtpb65[address] [place], [place] [address]Dr. Chrissy Frazier SPEC GRAVITY 1.020 Normal 1.005-<=1.025 [facility] Comment on above: Performed By: #### Amelie CHAMBERS UAMIC ####[facility] Kfgehaelas7[address] [place], [place] [address]Dr. Chrissy Frazier UA PROTEIN Negative Normal NEGATIVE/ TRACE [facility] Comment on above: Performed By: #### Amelie CHAMBERS UAMIC ####[facility] Dsxcmolrgq7269[address] [place], [place] [address]Dr. Chrissy Frazier Urobilinogen Qn (U) 0.2 {Estrellita'U}/dL Normal 0.2 - 1. 0 [facility] Comment on above: Performed By: #### Amelie CHAMBERS UAMIC ####[facility] Qlpnfdnkvd2109[address] [place], [place] [address]Dr. Chrissy Frazier WBC 0-2 Abnormal NONE SEEN [facility] Comment on above: Performed By: #### D RUGRPD, UAMIC ####[facility] Qhcvnjimzu9059 [place], [place] [address]Xk. Chrissy Frazier XR ABD FLAT UP_PA Enoch 07-01 XR ABD FLAT UP_PA CH Normal [facility] Covid-19 PCR (CVDTB)on SARS-CoV-2 (COVID-19) RNA RHIANNON+probe Ql (Unsp spec) Not detected Normal NOT DETECTED [facility] Comment on above: Result Comment: When [...] for this test is supported by the Parks And Recreation Manager of Health and Human Service's declaration [...] longer be used). Performed By: #### [facility] ####[facility] Niqvsbjuct8327 [place], [place] [address]Vd. Chrissy Frazier SYMPTOMATIC COVID-19 ANTIGEN on 04-23-2022 EUA Statement SEE BELOW Normal The [facility] Comment on above: Result Comment: This [...] revoked sooner. Performed By: #### C VDAGS ####[facility] Wmbujuhplr76[address] [place] [address]Dr. Chrissy Frazier SARS-CoV-2 (COVID-19) RNA RHIANNON+probe Ql (Unsp spec) Negative Normal NEGATIVE [facility] Comment on above: Performed By: #### C VDAGS ####[facility] Aikpvwxmei4060[address] [place], [place] [address]Dr. Chirssy Frazier AMYLASEon 04-04-2022 Amylase [Catalytic activity/Vol] 40 U/L Normal 25-115 [facility] Comment on above: Performed By: #### C MP, TERRENCE, LIPA ####[facility] Gjzoniizdv10[address] [place], [place] [address]Dr. Chrissy Frazier CBC AUTO DIFFon 04-04-2022 BASO # 0.1 103/ul Normal 0.0-0.1 [facility] Comment on above: Performed By: #### C BC ####[facility] Hnybwojykp[address] [place], [place] [address]Dr. Chrissy Frazier Basophils/100 WBC (Bld) 0.4 % Normal 0.2-2.0 [facility] Comment on above: Performed By: #### C BC ####[facility] Djqhrxxvca9267[address] [place], [place] [address]Dr. Chrissy Frazier EO # 0.1 103/ul Normal 0.0-0.7 [facility] Comment on above: Performed By: #### C BC ####[facility] Bjzevilwzq922[address] [place], [place] [address]Dr. Chrissy Frazier Eosinophils/100 WBC (Bld) 0.6 % Critically low 0.9-7.0 [facility] Comment on above: Performed By: #### C BC ####[facility] Zpghysudrq[address] [place], [place] [address]Dr. Chrissy Frazier Erythrocyte distribution width (RBC) [Ratio] 13.2 % Normal 11.0-15.0 [facility] Comment on above: Performed By: #### C BC ####[facility] Kfbkcmokea3574 [place] [address]Dr. Chrissy Frazier Hematocrit (Bld) [Volume fraction] 48.3 % Normal 42.0-54.0 [facility] Comment on above: Performed By: #### C BC ####[facility] Tvtiwmntiq75[address] [place] [address]Dr. Chrissy Frazier Hemoglobin (Bld) [Mass/Vol] 16.1 g/dL Normal 14.0-18.0 [facility] Comment on above: Performed By: #### C BC ####[facility] Qsfypftdxn[address] [place], [place] [address]Dr. Chrissy Frazier IG # 0.12 10e3/ul Critically high 0.00-0.03 [facility] Comment on above: Performed By: #### C BC ####[facility] Ztjppxavci[address] [place], [place] [address]Dr. Chrissy Frazier IG % 0.9 % Critically high 0.0-0.5 [facility] [place] [facility] Comment on above: Performed By: #### C BC ####[facility] Sgzghojsvv[address] [place], [place] [address]Dr. Chrissy Frazier LYMPH # 3.0 103/ul Normal 1.2-3.8 [facility] Comment on above: Performed By: #### C BC ####[facility] Ngekcvmqif6[address] [place], [place] [address]Dr. Chrissy Frazier Lymphocytes/100 WBC (Bld) 22.3 % Normal 20.5-60.0 [facility] Comment on above: Performed By: #### C BC ####[facility] Exljjncexn[address] [place], [place] [address]DrNancy Frazier MANUAL DIFF REQ NO Normal [facility] Comment on above: Performed By: #### C BC ####[facility] Fmaapokmfk[address] [place], [place] [address]DrNancy Frazier MCH (RBC) [Entitic mass] 28.6 pg Normal 25.9-34.0 [facility] Comment on above: Performed By: #### C BC ####[facility] Vtygmxwwuf38[address] [place] [id number]. Chrissy Freddie MCHC (RBC) [Mass/Vol] 33.3 g/dL Normal 29.9-35.2 [facility] Comment on above: Performed By: #### C BC ####[facility] Vorxqdhzet2126 [place] [id number]. Tishrowan Freddie MCV (RBC) [Entitic vol] 85.9 fL Normal 80.0-94.0 [facility] Comment on above: Performed By: #### C BC ####[facility] Hskplfwptb[address] [place], [place] [address]Dr. Chrissy Frazier MONO # 0.8 103/ul Normal 0.3-0.8 [facility] Comment on above: Performed By: #### C BC ####[facility] Htezbhsrqj7[address] [place], [place] [address]Dr. Chrissy Frazier Monocytes/100 WBC (Bld) 5.7 % Normal 1.7-12.0 [facility] Comment on above: Performed By: #### C BC ####[facility] Iysswqsxwo30[address] [place], [place] [id number]. Chrissy Frazier NEUT # 9.3 103/ul Critically high 1.4-6.5 [facility] Comment on above: Performed By: #### C BC ####[facility] Rtlcpencrl5[address] [place], [place] [id number]. Chrissy Frazier Neutrophils/100 WBC (Bld) 70.1 % Normal 43.0-75.0 [facility] Comment on above: Performed By: #### C BC ####[facility] Cjyhkioqsn40[address] [place], [place] [id number] Frazier Platelet mean volume (Bld) [Entitic vol] 10.3 fL Normal 9.5-13.5 [facility] Comment on above: Performed By: #### C BC ####[facility] Roacjxhbrv[address] [place], [place] [address]Dr. Chrissy Frazier PLT 461 103/ul Critically high 150-450 [facility] Comment on above: Performed By: #### C BC ####[facility] Mzcpaqszbe6486 [place] [address]Dr. Tishrowan Freddie RBC 5.62 106/ul Normal 4.70-6.10 [facility] Comment on above: Performed By: #### C BC ####[facility] Wdlqebuyhd3580 [place] [id number]. Chrissy Frazier WBC 13.3 103/ul Critically high 4.0-11.0 [facility] Comment on above: Performed By: #### C BC ####[facility] Lszixpbjwp9227 [place] [address]Dr. Chrissy Frazier LIPASEon 04-04-2022 Lipase [Catalytic activity/Vol] 118.0 U/L Normal 73.0-393.0 [facility] Comment on above: Performed By: #### C MP, TERRENCE, LIPA ####[facility] Smekdbnqkj7960 [place] [address]Dr. Chrissy Frazier PROF 14(COMP METB)on 022 Albumin [Mass/Vol] 4.3 g/dL Normal 3.4-5.0 [facility] Comment on above: Performed By: #### C MP, TERRENCE, LIPA ####[facility] Pptrzvwcml6626 [place] [address]Dr. Chrissy Frazier Albumin/Globulin [Mass ratio] 1.0 {ratio} Normal [facility] Comment on above: Performed By: #### C MP, TERRENCE, LIPA ####[facility] Bpdhdcgokj9496 [place] [address]Dr. Chrissy Frazier ALP [Catalytic activity/Vol] 84 U/L Normal 46-116 [facility] Comment on above: Performed By: #### C MP, TERRENCE, LIPA ####[facility] Fmqxhkezin6987 [place] [address]Dr. Chrissy Frazier ALT [Catalytic activity/Vol] 81 U/L Critically high 16-63 [facility] Comment on above: Performed By: #### C MP, TERRENCE, LIPA ####[facility] Xvpkvzdcvc9463 [place] [id number]. Chrissy Frazier Anion gap [Moles/Vol] 17.9 mmol/L Normal [facility] Comment on above: Performed By: #### C MP, TERRENCE, LIPA ####[facility] Egpyhfzpex6593 [place] [address]Dr. Chrissy Frazier AST [Catalytic activity/Vol] 25 U/L Normal 15-37 [facility] Comment on above: Performed By: #### C MP, TERRENCE, LIPA ####[facility] Hbvqdowgje0833 [place] [address]Dr. Chrissy Frazier Bilirubin [Mass/Vol] 0.5 mg/dL Normal 0.2-1.0 [facility] Comment on above: Performed By: #### C MP, TERRENCE, LIPA ####[facility] Jhgmogeszn0105 [place] [address]Dr. Chrissy Frazier Calcium [Mass/Vol] 9.6 mg/dL Normal 8.5-10.1 [facility] Comment on above: Performed By: #### C MP, TERRENCE, LIPA ####[facility] Dujfatvqen2027 [place] [address]Dr. Chrissy Frazier Chloride [Moles/Vol] 101 mmol/L Normal 98-107 [facility] Comment on above: Performed By: #### C MP, TERRENCE, LIPA ####[facility] Slxltvmtes5025 [place] [address]Dr. Chrissy Frazier CO2 [Moles/Vol] 18.6 mmol/L Critically low 21.0-32.0 [facility] Comment on above: Performed By: #### C MP, TERRENCE, LIPA ####[facility] Lnprvavoik5140 [place] [address]Dr. Chrissy Frazier Creatinine [Mass/Vol] 1.39 mg/dL Critically high 0.70-1.30 [facility] Comment on above: Performed By: #### C MP, TERRENCE, LIPA ####[facility] Mdtsxrpgmb1863 [place] [address]Dr. Chrissy Frazier EGFR-AF ICELANDIC >60 Normal >=60 [facility] Comment on above: Performed By: #### C MP, TERRENCE, LIPA ####[facility] Hvfywrnmie9058 [place] [address]Dr. Chrissy Frazier EGFR-NON AF ICELANDIC 59 mL/min/1.73m2 Critically low >=60 [facility] Comment on above: Performed By: #### C MP, TERRENCE, LIPA ####[facility] Maavvykeos5394 [place] [address]Dr. Chrissy Frazier Globulin (S) [Mass/Vol] 4.3 g/dL Normal [facility] Comment on above: Performed By: #### C MP, TERRENCE, LIPA ####[facility] Lrcqebnfxj9564 [place] [address]Dr. Chrissy Frazier Glucose [Mass/Vol] 132 mg/dL Critically high 74-106 [facility] Comment on above: Performed By: #### C MP, TERRENCE, LIPA ####[facility] Aseckdmyap69[address] [place], [place] [address]Dr. Chrissy Frazier Potassium [Moles/Vol] 3.5 mmol/L Normal 3.5-5.1 [facility] Comment on above: Performed By: #### C MP, TERRENCE, LIPA ####[facility] Evsqtxtoav6[address] [place], [place] [address]Dr. Chrissy Frazier Protein [Mass/Vol] 8.6 g/dL Critically high 6.4-8.2 [facility] Comment on above: Performed By: #### C MP, TERRENCE, LIPA ####[facility] Xcbejekoxt7139 [place] [address]Dr. Chrissy Frazier Sodium [Moles/Vol] 134 mmol/L Critically low 136-145 [facility] Comment on above: Performed By: #### C MP, TERRENCE, LIPA ####[facility] Dostrcmwok3290 [place] [address]Dr. Chrissy Frazier Urea nitrogen [Mass/Vol] 8.0 mg/dL Normal 7.0-18.0 [facility] Comment on above: Performed By: #### C MP, TERRENCE, LIPA ####[facility] Iltfmhohgd8150 [place] [address]Dr. Chrissy Frazier Urea nitrogen/Creatinine [Mass ratio] 5.8 mg/mg Normal [facility] Comment on above: Performed By: #### C TERRENCE ADAIR LIPA ####[facility] Cqehggstjp7287 [place] [address]Dr. Chrissy Frazier XR ABD FLAT UP_PA Enoch 04-04 XR ABD FLAT UP_PA CH Normal [facility] AMMONIAon 03-31-2022 Ammonia (P) [Moles/Vol] 19 umol/L Normal 11-32 [facility] Comment on above: Performed By: #### A MM ####[facility] Tztexnjgzk95[address] [place], [place] [address]Dr. Chrissy Freddie CBC AUTO DIFFon 03-31-2022 BASO # 0.1 103/ul Normal 0.0-0.1 [facility] Comment on above: Performed By: #### C BC ####[facility] Afkoncksbj4360[address] [place], [place] [address]Dr. Chrissy Freddie Basophils/100 WBC (Bld) 0.5 % Normal 0.2-2.0 [facility] Comment on above: Performed By: #### C BC ####[facility] Hfsrhpwlbu[address] [place], [place] [address]Dr. Chrissy Frazier EO # 0.2 103/ul Normal 0.0-0.7 [facility] Comment on above: Performed By: #### C BC ####[facility] Aiayzjjoiy[address] [place], [place] [address]Dr. Tishrowan Frazier Eosinophils/100 WBC (Bld) 1.6 % Normal 0.9-7.0 [facility] Comment on above: Performed By: #### C BC ####[facility] Dtokqcfqul1687[address] [place], [place] [address]Dr. Chrissy Freddie Erythrocyte distribution width (RBC) [Ratio] 13.2 % Normal 11.0-15.0 [facility] Comment on above: Performed By: #### C BC ####[facility] Anuivddmgt2177[address] [place], [place] [address]Dr. Chrissy Frazier Hematocrit (Bld) [Volume fraction] 42.1 % Normal 42.0-54.0 [facility] Comment on above: Performed By: #### C BC ####[facility] Etdkqaxabr3862 [place] [address]Dr. Chrissy Frazier Hemoglobin (Bld) [Mass/Vol] 14.3 g/dL Normal 14.0-18.0 [facility] Comment on above: Performed By: #### C BC ####[facility] Kezufrdqir9412 [place] [address]Dr. Chrissy Frazier IG # 0.05 10e3/ul Critically high 0.00-0.03 [facility] Comment on above: Performed By: #### C BC ####[facility] Ybwvkqivpr2585 [place] [address]Dr. Chrissy Frazier IG % 0.5 % Normal 0.0-0.5 [facility] Comment on above: Performed By: #### C BC ####[facility] Mnignrtdly0095 [place] [address]Dr. Chrissy Frazier LYMPH # 2.9 103/ul Normal 1.2-3.8 [facility] Comment on above: Performed By: #### C BC ####[facility] Hzvqbggzdg3336 [place] [address]Dr. Chrissy Frazier Lymphocytes/100 WBC (Bld) 25.7 % Normal 20.5-60.0 [facility] Comment on above: Performed By: #### C BC ####[facility] Obentkusfe7912 [place] [address]Dr. Chrissy Frazier MANUAL DIFF REQ NO Normal [facility] Comment on above: Performed By: #### C BC ####[facility] Zogplsqdwh6557 [place] [address]Dr. Chrissy Frazier MCH (RBC) [Entitic mass] 29.2 pg Normal 25.9-34.0 [facility] Comment on above: Performed By: #### C BC ####[facility] Fslbfbcsgc9110 [place] [address]Dr. Chrissy Frazier MCHC (RBC) [Mass/Vol] 34.0 g/dL Normal 29.9-35.2 [facility] Comment on above: Performed By: #### C BC ####[facility] Hfsjwfmaqg5496 [place] [id number]. Chrissy Frazier MCV (RBC) [Entitic vol] 85.9 fL Normal 80.0-94.0 [facility] Comment on above: Performed By: #### C BC ####[facility] Lfprjtwnia2005 [place] [id number]. Chrissy Freddie MONO # 1.0 103/ul Critically high 0.3-0.8 [facility] Comment on above: Performed By: #### C BC ####[facility] Aphuudkwzk9957 [place] [address]Dr. Chrissy Frazier Monocytes/100 WBC (Bld) 8.6 % Normal 1.7-12.0 [facility] Comment on above: Performed By: #### C BC ####[facility] Mwlwckmgpw6834[address] [place], [place] [address]Dr. Chrissy Frazier NEUT # 7.0 103/ul Critically high 1.4-6.5 [facility] Comment on above: Performed By: #### C BC ####[facility] Dgeqczvuyz2997[address] [place], [place] [address]Dr. Tishrowan Frazier Neutrophils/100 WBC (Bld) 63.1 % Normal 43.0-75.0 [facility] Comment on above: Performed By: #### C BC ####[facility] Aejrfawshv3743 [place] [id number]. Tishrowan Frazier Platelet mean volume (Bld) [Entitic vol] 10.4 fL Normal 9.5-13.5 [facility] Comment on above: Performed By: #### C BC ####[facility] Oejoqzxghe6993 [place] [id number]. Chrissy Frazier PLT 308 103/ul Normal 150-450 [facility] Comment on above: Performed By: #### C BC ####[facility] Ravfrcxwer739[address] [place], [place] [address]Dr. Chrissy Frazier RBC 4.90 106/ul Normal 4.70-6.10 [facility] Comment on above: Performed By: #### C BC ####[facility] Xjrelrdknl1133 [place] [address]Dr. Tishrowan Freddie WBC 11.1 103/ul Critically high 4.0-11.0 [facility] Comment on above: Performed By: #### C BC ####[facility] Zxaistcefb3030 [place] [address]Dr. Chrissy Frazier PROF 14(COMP METB)on 022 Albumin [Mass/Vol] 3.5 g/dL Normal 3.4-5.0 [facility] Comment on above: Performed By: #### C MP ####[facility] Kczgqfbphq3916[address] [place], [place] [address]Dr. Chrissy Frazier Albumin/Globulin [Mass ratio] 0.9 {ratio} Normal [facility] Comment on above: Performed By: #### C MP ####[facility] Mqnqakxdmp3190[address] [place], [place] [address]Dr. Tishrowan Frazier ALP [Catalytic activity/Vol] 68 U/L Normal 46-116 [facility] Comment on above: Performed By: #### C MP ####[facility] Qpjnofczlg404[address] [place], [place] [address]Dr. Chrissy Frazier ALT [Catalytic activity/Vol] 113 U/L Critically high 16-63 [facility] Comment on above: Performed By: #### C MP ####[facility] Kiphomropd695[address] [place], [place] [address]Dr. Chrissy Frazier Anion gap [Moles/Vol] 14.0 mmol/L Normal [facility] Comment on above: Performed By: #### C MP ####[facility] Fszbjxtuaf5889[address] [place], [place] [address]Dr. Chrissy Frazier AST [Catalytic activity/Vol] 31 U/L Normal 15-37 [facility] Comment on above: Performed By: #### C MP ####[facility] Ectniftefd005[address] [place], [place] [address]Dr. Chrissy Frazier Bilirubin [Mass/Vol] 0.6 mg/dL Normal 0.2-1.0 [facility] Comment on above: Performed By: #### C MP ####[facility] Micltwiunv505[address] [place], [place] [address]Dr. Chrissy Frazier Calcium [Mass/Vol] 8.4 mg/dL Critically low 8.5-10.1 [facility] Comment on above: Performed By: #### C MP ####[facility] Ztvyhjwzui9636[address] [place], [place] [address]Dr. Chrissy Frazier Chloride [Moles/Vol] 101 mmol/L Normal 98-107 [facility] Comment on above: Performed By: #### C MP ####[facility] Gwhczxgwnz6855[address] [place], [place] [address]Dr. Chrissy Frazier CO2 [Moles/Vol] 24.2 mmol/L Normal 21.0-32.0 [facility] Comment on above: Performed By: #### C MP ####[facility] Siguasirzo167[address] [place], [place] [address]Dr. Chrissy Frazier Creatinine [Mass/Vol] 1.15 mg/dL Normal 0.70-1.30 [facility] Comment on above: Performed By: #### C MP ####[facility] Yfxacmbjad966[address] [place], [place] [address]Dr. Chrissy Frazier EGFR-AF ICELANDIC >60 Normal >=60 [facility] Comment on above: Performed By: #### C MP ####[facility] Ribeyxgazn1029[address] [place], [place] [address]Dr. Chrissy Frazier EGFR-NON AF ICELANDIC >60 Normal >=60 [facility] Comment on above: Performed By: #### C MP ####[facility] Wisiwsupfe3017[address] [place], [place] [address]Dr. Chrissy Frazier Globulin (S) [Mass/Vol] 3.8 g/dL Normal [facility] Comment on above: Performed By: #### C MP ####[facility] Zpzzaqsiwl5785[address] [place], [place] [address]Dr. Chrissy Frazier Glucose [Mass/Vol] 100 mg/dL Normal 74-106 [facility] Comment on above: Performed By: #### C MP ####[facility] Hefenvchky1381 [place] [address]Dr. Chrissy Frazier Potassium [Moles/Vol] 3.2 mmol/L Critically low 3.5-5.1 [facility] Comment on above: Performed By: #### C MP ####[facility] Jkzrwznahm5767[address] [place], [place] [address]Dr. Chrissy Frazier Protein [Mass/Vol] 7.3 g/dL Normal 6.4-8.2 [facility] Comment on above: Performed By: #### C MP ####[facility] Feajykarls42[address] [place], [place] [address]Dr. Chrissy Frazier Sodium [Moles/Vol] 136 mmol/L Normal 136-145 [facility] Comment on above: Performed By: #### C MP ####[facility] Hbtlgckajs9985[address] [place], [place] [address]Dr. Chrissy Frazier Urea nitrogen [Mass/Vol] 13.0 mg/dL Normal 7.0-18.0 [facility] Comment on above: Performed By: #### C MP ####[facility] Gueppdbwvg2820[address] [place], [place] [address]Dr. Chrissy Frazier Urea nitrogen/Creatinine [Mass ratio] 11.3 mg/mg Normal [facility] Comment on above: Performed By: #### C MP ####[facility] Dcbsspudql9[address] [place], [place] [address]Dr. Chrissy Frazier AMMONIAon 03-30-2022 Ammonia (P) [Mass/Vol] ug/dL Critically low 11-32 [facility] Comment on above: Performed By: #### A MM ####[facility] Lwyabkdfft205[address] [place], [place] [address]Dr. Chrissy Frazier CBC AUTO DIFFon 03-30-2022 BASO # 0.1 103/ul Normal 0.0-0.1 [facility] Comment on above: Performed By: #### C BC ####[facility] Htxklontdp3212[address] [place], [place] [address]Dr. Chrissy Frazier Basophils/100 WBC (Bld) 0.5 % Normal 0.2-2.0 [facility] Comment on above: Performed By: #### C BC ####[facility] Kymuowtwao5583 [place] [address]Dr. Chrissy Frazier EO # 0.1 103/ul Normal 0.0-0.7 [facility] Comment on above: Performed By: #### C BC ####[facility] Ayuefvtnyk5639[address] [place], [place] [address]Dr. Chrissy Frazier Eosinophils/100 WBC (Bld) 1.1 % Normal 0.9-7.0 [facility] Comment on above: Performed By: #### C BC ####[facility] Nzemzwwgin020[address] [place], [place] [address]Dr. Chrissy Frazier Erythrocyte distribution width (RBC) [Ratio] 13.4 % Normal 11.0-15.0 [facility] Comment on above: Performed By: #### C BC ####[facility] Kqtzpyrjaw28[address] [place], [place] [address]Dr. Chrissy Frazier Hematocrit (Bld) [Volume fraction] 45.8 % Normal 42.0-54.0 [facility] Comment on above: Performed By: #### C BC ####[facility] Lthyupzlfi3828[address] [place], [place] [address]Dr. Chrissy Frazier Hemoglobin (Bld) [Mass/Vol] 14.9 g/dL Normal 14.0-18.0 [facility] Comment on above: Performed By: #### C BC ####[facility] Tsbkkbkgwk0225[address] [place], [place] [address]Dr. Chrissy Frazier IG # 0.05 10e3/ul Critically high 0.00-0.03 [facility] Comment on above: Performed By: #### C BC ####[facility] Hhoxigkwck7625[address] [place], [place] [address]Dr. Chrissy Frazier IG % 0.5 % Normal 0.0-0.5 [facility] Comment on above: Performed By: #### C BC ####[facility] Qkqyxqzedg800[address] [place], [place] [address]Dr. Chrissy Frazier LYMPH # 3.0 103/ul Normal 1.2-3.8 [facility] Comment on above: Performed By: #### C BC ####[facility] Dhzcdubhah9471 [place] [address]Dr. Chrissy Frazier Lymphocytes/100 WBC (Bld) 30.2 % Normal 20.5-60.0 [facility] Comment on above: Performed By: #### C BC ####[facility] Ckdxxnlmxo2688 [place] [address]Dr. Chrissy Frazier MANUAL DIFF REQ NO Normal [facility] Comment on above: Performed By: #### C BC ####[facility] Luahojwszw4789 [place] [address]Dr. Chrissy Frazier MCH (RBC) [Entitic mass] 28.4 pg Normal 25.9-34.0 [facility] Comment on above: Performed By: #### C BC ####[facility] Drqaiignyo1489[address] [place], [place] [address]Dr. Chrissy Frazier MCHC (RBC) [Mass/Vol] 32.5 g/dL Normal 29.9-35.2 [facility] Comment on above: Performed By: #### C BC ####[facility] Leylgmmmzz9[address] [place], [place] [address]Dr. Chrissy Frazier MCV (RBC) [Entitic vol] 87.4 fL Normal 80.0-94.0 [facility] Comment on above: Performed By: #### C BC ####[facility] Oktbwyubth594[address] [place], [place] [address]Dr. Chrissy Frazier MONO # 0.8 103/ul Normal 0.3-0.8 [facility] Comment on above: Performed By: #### C BC ####[facility] Rvrwrhcxzd599[address] [place], [place] [address]Dr. Chrissy Frazier Monocytes/100 WBC (Bld) 7.9 % Normal 1.7-12.0 [facility] Comment on above: Performed By: #### C BC ####[facility] Tezjynbdby895[address] [place], [place] [address]Dr. Yirowan Frazier NEUT # 5.9 103/ul Normal 1.4-6.5 [facility] Comment on above: Performed By: #### C BC ####[facility] Woghhblios0882 [place] [address]DrNancy Frazier Neutrophils/100 WBC (Bld) 59.8 % Normal 43.0-75.0 [facility] Comment on above: Performed By: #### C BC ####[facility] Ouanptycow7052 [place] [address]DrNancy Frazier Platelet mean volume (Bld) [Entitic vol] 10.1 fL Normal 9.5-13.5 [facility] Comment on above: Performed By: #### C BC ####[facility] Ldqrhaqlyc[address] [place], [place] [address]DrNancy Frazier PLT 320 103/ul Normal 150-450 [facility] Comment on above: Performed By: #### C BC ####[facility] Kuowpmqjon911[address] [place], [place] [address]DrNancy Frazier RBC 5.24 106/ul Normal 4.70-6.10 [facility] Comment on above: Performed By: #### C BC ####[facility] Ewbeelcyab0847[address] [place], [place] [address]DrNancy Frazier WBC 9.9 103/ul Normal 4.0-11.0 [facility] Comment on above: Performed By: #### C BC ####[facility] Hooqxfvdlg9032[address] [place], [place] [address]Dr. Chrissy Frazier PROF 14(COMP METB)on 022 Albumin [Mass/Vol] 3.9 g/dL Normal 3.4-5.0 [facility] Comment on above: Performed By: #### C MP ####[facility] Mmxydsphye110[address] [place], [place] [address]DrNancy Frazier Albumin/Globulin [Mass ratio] 1.1 {ratio} Normal [facility] Comment on above: Performed By: #### C MP ####[facility] Zrrdrtnvgz[address] [place], [place] [address]DrNancy Lowe Frazier ALP [Catalytic activity/Vol] 88 U/L Normal 46-116 [facility] Comment on above: Performed By: #### C MP ####[facility] Vhgmiefhug1687 [place] [address]Dr. Chrissy Frazier ALT [Catalytic activity/Vol] 161 U/L Critically high 16-63 [facility] Comment on above: Performed By: #### C MP ####[facility] Ztygtuaiix3420[address] [place], [place] [address]Dr. Chrissy Freddie Anion gap [Moles/Vol] 12.3 mmol/L Normal [facility] Comment on above: Performed By: #### C MP ####[facility] Biqxgdnlcd214[address] [place], [place] [address]Dr. Chrissy Freddie AST [Catalytic activity/Vol] 64 U/L Critically high 15-37 [facility] Comment on above: Performed By: #### C MP ####[facility] Qvtwxfluuw7364[address] [place], [place] [address]Dr. Chrissy Freddie Bilirubin [Mass/Vol] 0.8 mg/dL Normal 0.2-1.0 [facility] Comment on above: Performed By: #### C MP ####[facility] Vgvgoafcug134[address] [place], [place] [address]Dr. Chrissy Freddie Calcium [Mass/Vol] 8.4 mg/dL Critically low 8.5-10.1 [facility] Comment on above: Performed By: #### C MP ####[facility] Bidgwgqsar2325[address] [place], [place] [address]Dr. Chrissy Freddie Chloride [Moles/Vol] 103 mmol/L Normal 98-107 [facility] Comment on above: Performed By: #### C MP ####[facility] Hctgvuegbp6370[address] [place], [place] [address]Dr. Chrissy Frazier CO2 [Moles/Vol] 26.5 mmol/L Normal 21.0-32.0 [facility] Comment on above: Performed By: #### C MP ####[facility] Ngnsgdyvhw3750[address] [place], [place] [address]Dr. Chrissy Frazier Creatinine [Mass/Vol] 1.24 mg/dL Normal 0.70-1.30 [facility] Comment on above: Performed By: #### C MP ####[facility] Qybxfislqi13[address] [place] [address]Dr. Chrissy Frazier EGFR-AF ICELANDIC >60 Normal >=60 [facility] Comment on above: Performed By: #### C MP ####[facility] Bmwswxkghr5821 [place] [address]Dr. Chrissy Freddie EGFR-NON AF ICELANDIC >60 Normal >=60 [facility] Comment on above: Performed By: #### C MP ####[facility] Zensbefyie0127 [place] [address]Dr. Chrissy Freddie Globulin (S) [Mass/Vol] 3.7 g/dL Normal [facility] Comment on above: Performed By: #### C MP ####[facility] Bryipfpgqe58[address] [place], [place] [address]Dr. Chrissy Freddie Glucose [Mass/Vol] 108 mg/dL Critically high 74-106 [facility] Comment on above: Performed By: #### C MP ####[facility] Xczfgtjrpt0463 [place] [address]Dr. Chrissy Freddie Potassium [Moles/Vol] 3.8 mmol/L Normal 3.5-5.1 [facility] Comment on above: Performed By: #### C MP ####[facility] Mrbpzwzbjn6497 [place] [address]Dr. Chrissy Freddie Protein [Mass/Vol] 7.6 g/dL Normal 6.4-8.2 The [facility] Comment on above: Performed By: #### C MP ####[facility] Qkmzoepadk[address] [place] [address]Dr. Chrissy Frazier Sodium [Moles/Vol] 138 mmol/L Normal 136-145 [facility] Comment on above: Performed By: #### C MP ####[facility] Unlwkuqtam[address] [place] [address]Dr. Chrissy Freddie Urea nitrogen [Mass/Vol] 12.0 mg/dL Normal 7.0-18.0 [facility] Comment on above: Performed By: #### C MP ####[facility] Hayddrizqd[address] [place], [place] [address]Dr. Chrissy Frazier Urea nitrogen/Creatinine [Mass ratio] 9.7 mg/mg Normal [facility] Comment on above: Performed By: #### C MP ####[facility] Jawtqxvcho64[address] [place], [place] [address]Dr. Chrissy Frazier AMMONIAon 03-29-2022 Ammonia (P) [Moles/Vol] 27 umol/L Normal 11-32 [facility] Comment on above: Performed By: #### A MM ####[facility] Crwpufujgl199[address] [place], [place] [address]Dr. Chrissy Frazier AMYLASEon 03-29-2022 Amylase [Catalytic activity/Vol] 29 U/L Normal 25-115 [facility] Comment on above: Performed By: #### L IPA, TERRENCE ####[facility] Yqyzlmpjul[address] [place], [place] [address]Dr. Chrissy Frazier CBC AUTO DIFFon 03-29-2022 BASO # 0.0 103/ul Normal 0.0-0.1 [facility] Comment on above: Performed By: #### C BC ####[facility] Bibcdugmnq[address] [place], [place] [address]Dr. Chrissy Frazier Basophils/100 WBC (Bld) 0.2 % Normal 0.2-2.0 [facility] Comment on above: Performed By: #### C BC ####[facility] Bzwxacrnkq25[address] [place], [place] [address]Dr. Chrissy Frazier EO # 0.0 103/ul Normal 0.0-0.7 [facility] Comment on above: Performed By: #### C BC ####[facility] Vtehsjzwek[address] [place], [place] [address]Dr. Chrissy Frazier Eosinophils/100 WBC (Bld) 0.4 % Critically low 0.9-7.0 [facility] Comment on above: Performed By: #### C BC ####[facility] Msylarrbxw5524[address] [place], [place] [address]Dr. Chrissy Frazier Erythrocyte distribution width (RBC) [Ratio] 13.6 % Normal 11.0-15.0 [facility] Comment on above: Performed By: #### C BC ####[facility] Zmifzlnsgx3[address] [place] [address]Dr. Chrissy Frazier Hematocrit (Bld) [Volume fraction] 45.2 % Normal 42.0-54.0 [facility] Comment on above: Performed By: #### C BC ####[facility] Tjkekuddkm6[address] [place], [place] [address]Dr. Chrissy Frazier Hemoglobin (Bld) [Mass/Vol] 14.8 g/dL Normal 14.0-18.0 [facility] Comment on above: Performed By: #### C BC ####[facility] Czshvzkzsw43[address] [place], [place] [address]Dr. Tishrowan Frazier IG # 0.03 10e3/ul Normal 0.00-0.03 [facility] Comment on above: Performed By: #### C BC ####[facility] Bqvvbybxpp097[address] [place], [place] [address]Dr. Chrissy Frazier IG % 0.3 % Normal 0.0-0.5 [facility] Comment on above: Performed By: #### C BC ####[facility] Ecxtjyocii357[address] [place], [place] [address]Dr. Chrissy Frazier LYMPH # 2.0 103/ul Normal 1.2-3.8 [facility] Comment on above: Performed By: #### C BC ####[facility] Wxneelfppq4520[address] [place], [place] [address]Dr. Chrissy Freddie Lymphocytes/100 WBC (Bld) 18.3 % Critically low 20.5-60.0 [facility] Comment on above: Performed By: #### C BC ####[facility] Mfsnatmwwc9[address] [place], [place] [address]Dr. Tishrowan Frazier MANUAL DIFF REQ NO Normal [facility] Comment on above: Performed By: #### C BC ####[facility] Mdyyvrofdk411[address] [place], [place] [address]Dr. Chrissy Frazier MCH (RBC) [Entitic mass] 28.5 pg Normal 25.9-34.0 [facility] Comment on above: Performed By: #### C BC ####[facility] Cacxpcioud[address] [place] [address]Dr. Chrissy Frazier MCHC (RBC) [Mass/Vol] 32.7 g/dL Normal 29.9-35.2 [facility] Comment on above: Performed By: #### C BC ####[facility] Xfvifvztfq68[address] [place], [place] [address]Dr. Chrissy Frazier MCV (RBC) [Entitic vol] 87.1 fL Normal 80.0-94.0 [facility] Comment on above: Performed By: #### C BC ####[facility] Uifdyuwpvv1226[address] [place], [place] [address]Dr. Chrissy Frazier MONO # 0.9 103/ul Critically high 0.3-0.8 [facility] Comment on above: Performed By: #### C BC ####[facility] Amawcvhsee015[address] [place], [place] [address]Dr. Chrissy Frazier Monocytes/100 WBC (Bld) 8.6 % Normal 1.7-12.0 [facility] Comment on above: Performed By: #### C BC ####[facility] Suekameaqz745[address] [place], [place] [address]Dr. Tishrowan Frazier NEUT # 7.8 103/ul Critically high 1.4-6.5 [facility] Comment on above: Performed By: #### C BC ####[facility] Pacbyajusr677[address] [place], [place] [address]Dr. Chrissy Frazier Neutrophils/100 WBC (Bld) 72.2 % Normal 43.0-75.0 [facility] Comment on above: Performed By: #### C BC ####[facility] Zggdxnefdm2110[address] [place], [place] [address]Dr. Chrissy Frazier Platelet mean volume (Bld) [Entitic vol] 10.1 fL Normal 9.5-13.5 [facility] Comment on above: Performed By: #### C BC ####[facility] [address]vuexcqry[address] [place] [id number]. Chrissy Frazier PLT 329 103/ul Normal 150-450 [facility] Comment on above: Performed By: #### C BC ####[facility] Uvyapgnlyw7[address] [place] [id number]. Chrissy Frazier RBC 5.19 106/ul Normal 4.70-6.10 [facility] Comment on above: Performed By: #### C BC ####[facility] Wdooylvfnj8[address] [place] [id number]. Chrissy Frazier WBC 10.8 103/ul Normal 4.0-11.0 [facility] Comment on above: Performed By: #### C BC ####[facility] Dfowkedcul17[address] [place] [address]Dr. Chrissy Frazier LIPASEon 03-29-2022 Lipase [Catalytic activity/Vol] 58.0 U/L Critically low 73.0-393.0 [facility] Comment on above: Performed By: #### L TERRENCE VICTORIA ####[facility] Hkipcukykx[address] [place] [address]Dr. Chrissy Frazier NM HEPATOBILIARY SCAN W EFon 03-29-2022 NM HEPATOBILIARY SCAN W EF Normal [facility] PROF 14(COMP METB)on 022 Albumin [Mass/Vol] 3.8 g/dL Normal 3.4-5.0 [facility] Comment on above: Performed By: #### C MP ####[facility] Xbuhkgvfdn83[address] [place] [address]Dr. Chrissy Frazier Albumin/Globulin [Mass ratio] 1.0 {ratio} Normal [facility] Comment on above: Performed By: #### C MP ####[facility] Rvrtyerkey5926 [place] [id number]. Tishrowan Frazier ALP [Catalytic activity/Vol] 69 U/L Normal 46-116 [facility] Comment on above: Performed By: #### C MP ####[facility] Xtnmjfblwc4356 [place] [address]Dr. Chrissy Frazier ALT [Catalytic activity/Vol] 117 U/L Critically high 16-63 [facility] Comment on above: Performed By: #### C MP ####[facility] Uvkmaewjbu4257 [place] [id number]. Chrissy Frazier Anion gap [Moles/Vol] 16.7 mmol/L Normal [facility] Comment on above: Performed By: #### C MP ####[facility] Rexrihezfa6032 [place] [id number]. Chrissy Frazier AST [Catalytic activity/Vol] 77 U/L Critically high 15-37 [facility] Comment on above: Performed By: #### C MP ####[facility] Ddnnfhemcz8094 [place] [id number]. Chrissy Freddie Bilirubin [Mass/Vol] 1.5 mg/dL Critically high 0.2-1.0 [facility] Comment on above: Performed By: #### C MP ####[facility] Ahxpmvxdvn8284 [place] [address]Dr. Tishrowan Freddie Calcium [Mass/Vol] 8.1 mg/dL Critically low 8.5-10.1 [facility] Comment on above: Performed By: #### C MP ####[facility] Jnonyngoes64[address] [place] [address]Dr. Chrissy Freddie Chloride [Moles/Vol] 101 mmol/L Normal 98-107 [facility] Comment on above: Performed By: #### C MP ####[facility] Xyumdiapri5919 [place] [id number]. Chrissy Freddie CO2 [Moles/Vol] 24.5 mmol/L Normal 21.0-32.0 [facility] Comment on above: Performed By: #### C MP ####[facility] Icmhibrjpj3087 [place] [id number]. Chrissy Freddie Creatinine [Mass/Vol] 1.17 mg/dL Normal 0.70-1.30 [facility] Comment on above: Performed By: #### C MP ####[facility] Sjmwftfsfq8436 [place] [id number]. Chrissy Freddie EGFR-AF ICELANDIC >60 Normal >=60 [facility] Comment on above: Performed By: #### C MP ####[facility] Mnjorjdfmf5[address] [place] [id number]. Chrissy Frazier EGFR-NON AF ICELANDIC >60 Normal >=60 [facility] Comment on above: Performed By: #### C MP ####[facility] Vdgcuiihxd2901 [place] [id number]. Chrissy Frazier Globulin (S) [Mass/Vol] 3.9 g/dL Normal [facility] Comment on above: Performed By: #### C MP ####[facility] Rtbhsoglcz0900 [place] [address]Dr. Chrissy Frazier Glucose [Mass/Vol] 104 mg/dL Normal 74-106 [facility] Comment on above: Performed By: #### C MP ####[facility] Jzcucgjxxr2397 [place] [address]Dr. Chrissy Frazier Potassium [Moles/Vol] 3.2 mmol/L Critically low 3.5-5.1 [facility] Comment on above: Performed By: #### C MP ####[facility] Tzmhnodwqc5728 [place] [address]Dr. Chrissy Frazier Protein [Mass/Vol] 7.7 g/dL Normal 6.4-8.2 [facility] Comment on above: Performed By: #### C MP ####[facility] Wykqeynwdj3862 [place] [address]Dr. Chrissy Frazier Sodium [Moles/Vol] 139 mmol/L Normal 136-145 [facility] Comment on above: Performed By: #### C MP ####[facility] Qmlvylfdqw5483 [place] [address]Dr. Chrissy Frazier Urea nitrogen [Mass/Vol] 11.0 mg/dL Normal 7.0-18.0 [facility] Comment on above: Performed By: #### C MP ####[facility] Khgncqsnam1830 [place] [address]Dr. Chrissy Frazier Urea nitrogen/Creatinine [Mass ratio] 9.4 mg/mg Normal [facility] Comment on above: Performed By: #### C MP ####[facility] Ssgbeqvkgr1588 [place] [address]Dr. Chrissy Frazier US SINGLE QUAD RT UPPERon US SINGLE QUAD RT UPPER Normal [facility] AMMONIAon 03-28-2022 Ammonia (P) [Moles/Vol] 12 umol/L Normal 11-32 [facility] Comment on above: Performed By: #### A MM ####[facility] Oburqlfima[address] [place] [address]Dr. Chrissy Frazier CBC AUTO DIFFon 03-28-2022 BASO # 0.0 103/ul Normal 0.0-0.1 [facility] Comment on above: Performed By: #### C BC ####[facility] Yvgtiotrck50[address] [place], [place] [address]Dr. Chrissy Frazier Basophils/100 WBC (Bld) 0.1 % Critically low 0.2-2.0 [facility] Comment on above: Performed By: #### C BC ####[facility] Clsbzyvxkc[address] [place], [place] [address]Dr. Chrissy Frazier EO # 0.0 103/ul Normal 0.0-0.7 [facility] Comment on above: Performed By: #### C BC ####[facility] Suwcyfepxh31[address] [place], [place] [address]Dr. Chrissy Frazier Eosinophils/100 WBC (Bld) 0.0 % Critically low 0.9-7.0 [facility] Comment on above: Performed By: #### C BC ####[facility] Lnzvjebssa28[address] [place], [place] [address]Dr. Chrissy Frazier Erythrocyte distribution width (RBC) [Ratio] 14.0 % Normal 11.0-15.0 [facility] Comment on above: Performed By: #### C BC ####[facility] Hxhtqqrkkp058[address] [place], [place] [address]Dr. Chrissy Frazier Hematocrit (Bld) [Volume fraction] 44.2 % Normal 42.0-54.0 [facility] Comment on above: Performed By: #### C BC ####[facility] Pithmhjjhh2564[address] [place], [place] [address]Dr. Chrissy Freddie Hemoglobin (Bld) [Mass/Vol] 14.7 g/dL Normal 14.0-18.0 [facility] Comment on above: Performed By: #### C BC ####[facility] Xebvrxwzrz7916 [place] [address]Dr. Tishrowan Frazier IG # 0.10 10e3/ul Critically high 0.00-0.03 [facility] Comment on above: Performed By: #### C BC ####[facility] Mzulxxqphw5055 [place] [address]Dr. Chrissy Frazier IG % 0.5 % Normal 0.0-0.5 [facility] Comment on above: Performed By: #### C BC ####[facility] Ivvlcikvyc8406 [place] [address]Dr. Chrissy Frazier LYMPH # 2.6 103/ul Normal 1.2-3.8 [facility] Comment on above: Performed By: #### C BC ####[facility] Bwazcbyzyt1727 [place] [address]Dr. Chrissy Frazier Lymphocytes/100 WBC (Bld) 13.8 % Critically low 20.5-60.0 [facility] Comment on above: Performed By: #### C BC ####[facility] Wsbzwerpdg8975 [place] [address]Dr. Tishrowan Frazier MANUAL DIFF REQ NO Normal [facility] Comment on above: Performed By: #### C BC ####[facility] Rzeyggzfzo4139 [place] [address]Dr. Chrissy Freddie MCH (RBC) [Entitic mass] 29.0 pg Normal 25.9-34.0 [facility] Comment on above: Performed By: #### C BC ####[facility] Puuckqguwv5507 [place] [address]Dr. Chrissy Freddie MCHC (RBC) [Mass/Vol] 33.3 g/dL Normal 29.9-35.2 [facility] Comment on above: Performed By: #### C BC ####[facility] Gmojtiopvy7797 [place] [address]Dr. Chrissy Freddie MCV (RBC) [Entitic vol] 87.2 fL Normal 80.0-94.0 [facility] Comment on above: Performed By: #### C BC ####[facility] Mlahebzfly9664 [place] [id number]. Chrissy Frazier MONO # 1.1 103/ul Critically high 0.3-0.8 [facility] Comment on above: Performed By: #### C BC ####[facility] Ybbdtcdmdo4524 [place] [address]Dr. Chrissy Frazier Monocytes/100 WBC (Bld) 5.9 % Normal 1.7-12.0 [facility] Comment on above: Performed By: #### C BC ####[facility] Ujtyuccalr6[address] [place], [place] [address]Dr. Chrissy Freddie NEUT # 15.1 103/ul Critically high 1.4-6.5 [facility] Comment on above: Performed By: #### C BC ####[facility] Jvlbfgreqw0955[address] [place], [place] [address]Dr. Tishrowan Frazier Neutrophils/100 WBC (Bld) 79.7 % Critically high 43.0-75.0 [facility] Comment on above: Performed By: #### C BC ####[facility] Pbqotfzgek7963 [place] [address]Dr. Chrissy Frazier Platelet mean volume (Bld) [Entitic vol] 10.3 fL Normal 9.5-13.5 [facility] Comment on above: Performed By: #### C BC ####[facility] Mgqwmbbfsa29[address] [place], [place] [address]Dr. Chrissy Frazier PLT 358 103/ul Normal 150-450 [facility] Comment on above: Performed By: #### C BC ####[facility] Yckmmykhqi00[address] [place], [place] [address]Dr. Chrissy Frazier RBC 5.07 106/ul Normal 4.70-6.10 [facility] Comment on above: Performed By: #### C BC ####[facility] Wfrhgjvizw[address] [place], [place] [address]Dr. Chrissy Frazier WBC 18.9 103/ul Critically high 4.0-11.0 [facility] Comment on above: Performed By: #### C BC ####[facility] Mdhdjbgblh4688 [place] [address]DrNancy Frazier PROF 14(COMP METB)on 022 Albumin [Mass/Vol] 3.9 g/dL Normal 3.4-5.0 [facility] Comment on above: Performed By: #### C MP ####[facility] Qjblocphdg8174 [place] [address]Dr. Chrissy Frazier Albumin/Globulin [Mass ratio] 1.1 {ratio} Normal [facility] Comment on above: Performed By: #### C MP ####[facility] Oxgedgfijd5695 [place] [address]Dr. Chrissy Frazier ALP [Catalytic activity/Vol] 65 U/L Normal 46-116 [facility] Comment on above: Performed By: #### C MP ####[facility] Koscrfxlsh45[address] [place], [place] [address]Dr. Chrissy Frazier ALT [Catalytic activity/Vol] 46 U/L Normal 16-63 [facility] Comment on above: Performed By: #### C MP ####[facility] Kkxsgobvmp48[address] [place], [place] [address]Dr. Chrissy Frazier Anion gap [Moles/Vol] 13.2 mmol/L Normal [facility] Comment on above: Performed By: #### C MP ####[facility] Jaefpxfjoh[address] [place], [place] [address]DrNancy Frazier AST [Catalytic activity/Vol] 33 U/L Normal 15-37 [facility] Comment on above: Performed By: #### C MP ####[facility] Nagqmwpniy478[address] [place], [place] [address]Dr. Chrissy Frazier Bilirubin [Mass/Vol] 0.8 mg/dL Normal 0.2-1.0 [facility] Comment on above: Performed By: #### C MP ####[facility] Ujfifodsyh7814[address] [place], [place] [address]Dr. Chrissy Frazier Calcium [Mass/Vol] 8.1 mg/dL Critically low 8.5-10.1 [facility] Comment on above: Performed By: #### C MP ####[facility] Wuvttllqkd3759 [place] [address]Dr. Chrissy Frazier Chloride [Moles/Vol] 102 mmol/L Normal 98-107 [facility] Comment on above: Performed By: #### C MP ####[facility] Ebmamwvdtm0801 [place] [address]Dr. Chrissy Frazier CO2 [Moles/Vol] 24.0 mmol/L Normal 21.0-32.0 [facility] Comment on above: Performed By: #### C MP ####[facility] Sqgmtdcjju95[address] [place], [place] [address]Dr. Chrissy Frazier Creatinine [Mass/Vol] 1.26 mg/dL Normal 0.70-1.30 [facility] Comment on above: Performed By: #### C MP ####[facility] Wtibbhdcmy12[address] [place], [place] [address]Dr. Chrissy Frazier EGFR-AF ICELANDIC >60 Normal >=60 [facility] Comment on above: Performed By: #### C MP ####[facility] Rrrqzbykng3064[address] [place], [place] [address]Dr. Chrissy Frazier EGFR-NON AF ICELANDIC >60 Normal >=60 [facility] Comment on above: Performed By: #### C MP ####[facility] Zmidzclcze7581 [place] [address]Dr. Chrissy Frazier Globulin (S) [Mass/Vol] 3.7 g/dL Normal [facility] Comment on above: Performed By: #### C MP ####[facility] Dlmfhbdawj0506 [place] [address]Dr. Chrissy Frazier Glucose [Mass/Vol] 119 mg/dL Critically high 74-106 [facility] Comment on above: Performed By: #### C MP ####[facility] Cfeknseevg1377 [place] [address]Dr. Chrissy Frazier Potassium [Moles/Vol] 3.2 mmol/L Critically low 3.5-5.1 [facility] Comment on above: Performed By: #### C MP ####[facility] Llbgjcstii3774 [place] [address]Dr. Chrissy Frazier Protein [Mass/Vol] 7.6 g/dL Normal 6.4-8.2 [facility] Comment on above: Performed By: #### C MP ####[facility] Hdyqtwijcr6175 [place] [address]Dr. Chrissy Frazier Sodium [Moles/Vol] 136 mmol/L Normal 136-145 [facility] Comment on above: Performed By: #### C MP ####[facility] Nhbsjwpfht34[address] [place], [place] [address]Dr. Chrissy Frazier Urea nitrogen [Mass/Vol] 14.0 mg/dL Normal 7.0-18.0 [facility] Comment on above: Performed By: #### C MP ####[facility] Oqflskpqkk8[address] [place], [place] [address]Dr. Chrissy Frazier Urea nitrogen/Creatinine [Mass ratio] 11.1 mg/mg Normal [facility] Comment on above: Performed By: #### C MP ####[facility] Yphzfshhvn57[address] [place], [place] [address]Dr. Chrissy Freddie CBC W MANUAL DIFFon 03-27-20 22 ATYPICAL LYMPH # Normal [facility] Comment on above: Performed By: #### C BCMAN ####[facility] Wypwockwbm7[address] [place], [place] [address]Dr. hCrissy Frazier ATYPICAL LYMPH % Normal [facility] Comment on above: Performed By: #### C BCMAN ####[facility] Peospvpcpy[address] [place], [place] [address]Dr. Chrissy Frazier BAND # 0.0 103/ul Normal 0.0-0.3 [facility] Comment on above: Performed By: #### C BCMAN ####[facility] Encsnfueew4949 [place] [address]Dr. Chrissy Frazier BAND % 0 % Normal 0-5 [facility] Comment on above: Performed By: #### C BCMAN ####[facility] Bbiifzlufw2954 [place] [id number]. Chrissy Frazier BASOM # 0.00 103/ul Normal 0.00-0.10 [facility] Comment on above: Performed By: #### C BCMAN ####[facility] Ktmkxyobaq8254 [place] [id number]. Chrissy Frazier BASOM % 0.0 % Critically low 0.2-2.0 [facility] Comment on above: Performed By: #### C BCMAN ####[facility] Lqgklajcmq8552 [place] [address]Dr. Chrissy Frazier BLAST # Normal [facility] Comment on above: Performed By: #### C BCLEANDRO ####[facility] Dklcisthhu3692 [place] [address]Dr. Chrissy Frazier BLAST % Normal [facility] Comment on above: Performed By: #### C BCLEANDRO ####[facility] Pvhzreibuf13[address] [place], [place] [address]Dr. Chrissy Frazier CORRECTED WBC Normal 4.0-11.0 The [facility] Comment on above: Performed By: #### C BCLEANDRO ####[facility] Jygjuiasfi[address] [place], [place] [address]Dr. Chrissy Frazier EOS # 0.00 103/ul Normal 0.00-0.70 [facility] Comment on above: Performed By: #### C BCLEANDRO ####[facility] Rxnrxvdlsy3259 [place] [address]Dr. Chrissy Frazier EOS% 0.0 % Critically low 0.9-7.0 [facility] Comment on above: Performed By: #### C BCLEANDRO ####[facility] Vmpmmhhsoe3084 [place] [address]Dr. Chrissy Frazier HCT 47.3 % Normal 42.0-54.0 [facility] Comment on above: Performed By: #### C BCLEANDRO ####[facility] Iojkulvwak[address] [place], [place] [address]Dr. Chrissy Frazier HGB 16.4 g/dl Normal 14.0-18.0 [facility] Comment on above: Performed By: #### C ANTONETTE ####[facility] Gwrqcpedzq0078 [place], [place] [address]Dq. Chrissy Frazier LYMPHM # 2.31 103/ul Normal 1.20-3.80 [facility] Comment on above: Performed By: #### Silverio WHITMAN ####[facility] Aawrkgjshi4059 [place], [place] [address]Si. Chrissy Frazier LYMPHM% 9.0 % Critically low 20.5-60.0 The [facility] Comment on above: Performed By: #### C ANTONETTE ####[facility] Byjowdbzkk9482 [place] [id number]. Chrissy Frazier MCH 28.6 pg Normal 25.9-34.0 [facility] Comment on above: Performed By: #### Silverio WHITMAN ####[facility] Msitaicqlf4659 [place] [id number]. Chrissy Frazier MCHC 34.7 g/dl Normal 29.9-35.2 [facility] Comment on above: Performed By: #### Silverio WHITMAN ####[facility] Yzolhtukfi1451 [place] [id number]. Chrissy Frazier MCV 82.4 fL Normal 80.0-94.0 [facility] Comment on above: Performed By: #### Silverio WHITMAN ####[facility] Tkoshxuudw4566 [place] [id number]. Chrissy Frazier METAMYELOCYTE # Normal [facility] Comment on above: Performed By: #### Silverio WHITMAN ####[facility] Ywztjvdgwd4197 [place] [id number]. Chrissy Frazier METAMYELOCYTE % Normal [facility] Comment on above: Performed By: #### C ANTONETTE ####[facility] Meacwlrcfk4666 [place] [id number]. Chrissy Frazier MONOM# 3.85 103/ul Critically high 0.30-0.80 [facility] Comment on above: Performed By: #### Silverio WHITMAN ####[facility] Gjzvgijplq6122 [place] [id number]. Chrissy Frazier MONOM% 15.0 % Critically high 1.7-12.0 [facility] Comment on above: Performed By: #### C ANTONETTE ####[facility] Gmkwdfeuxm5826 [place] [id number]. Chrissy Frazier MPV 10.6 fL Normal 9.5-13.5 [facility] Comment on above: Performed By: #### C ANTONETTE ####[facility] Dsejjxctht4198 [place] [id number]. Chrissy Frazier MYELOCYTE # Normal [facility] Comment on above: Performed By: #### C ANTONETTE ####[facility] Qipxfvhfiq1311 [place] [id number]. Chrissy Frazier MYELOCYTE % Normal [facility] Comment on above: Performed By: #### C ANTONETTE ####[facility] Umebzpzgae3872 [place] [id number]. Chrissy Frazier NRBC Normal [facility] Comment on above: Performed By: #### C ANTONETTE ####[facility] Nalphsoeaj8223 [place] [id number]. Chrissy Frazier PLT 471 103/ul Critically high 150-450 [facility] Comment on above: Performed By: #### C ANTONETTE ####[facility] Xjvqqzbisc8155 [place] [id number]. Chrissy Frazier RBC 5.74 106/ul Normal 4.70-6.10 [facility] Comment on above: Performed By: #### C ANTONETTE ####[facility] [address] [place] [id number]. Chrissy Frazier RDW 13.7 % Normal 11.0-15.0 [facility] Comment on above: Performed By: #### C ANTONETTE ####[facility] [address] [place] [id number]. Chrissy Frazier SEG # 19.53 103/ul Critically high 1.40-6.50 [facility] Comment on above: Performed By: #### C ANTONETTE ####[facility] [address] [place] [address]Dr. Tishrowan Frazier SEG % 76.0 % Critically high 43.0-75.0 [facility] Comment on above: Performed By: #### C BCMAN ####[facility] [address] [place] [address]Dr. Tishrowan Frazier TOXIC GRANULATION SLIGHT Normal [facility] Comment on above: Result Comment: few vacoules Performed By: #### C BCLEANDRO ####[facility] [address] [place] [address]Dr. Chrissy Frazier WBC 25.7 103/ul Critically high 4.0-11.0 [facility] Comment on above: Performed By: #### C ANTONETTE ####[facility] [address] [place] [address]Dr. Chrissy Frazier LACTATE/LACTIC ACIDon 2021 Lactate [Moles/Vol] 2.4 mmol/L Critically high 0.4-1.9 [facility] Comment on above: Performed By: #### L ACT ####[facility] [address] [place] [address]Dr. Chrissy Frazier Lactate [Moles/Vol] 3.5 mmol/L Critically high 0.4-1.9 [facility] Comment on above: Performed By: #### L ACT ####[facility] [address] [place] [address]Dr. Chrissy Frazier LIPASEon 03-27-2022 Lipase [Catalytic activity/Vol] 43.0 U/L Critically low 73.0-393.0 [facility] Comment on above: Performed By: #### C MP, LIPA ####[facility] [address] [place] [address]Dr. Chrissy Frazier PROF 14(COMP METB)on 022 Albumin [Mass/Vol] 4.7 g/dL Normal 3.4-5.0 [facility] Comment on above: Performed By: #### C MP, LIPA ####[facility] [address] [place] [address]Dr. Chrissy Frazier Albumin/Globulin [Mass ratio] 1.1 {ratio} Normal [facility] Comment on above: Performed By: #### C MP, LIPA ####[facility] [address] [place] [address]Dr. Chrissy Frazier ALP [Catalytic activity/Vol] 69 U/L Normal 46-116 [facility] Comment on above: Performed By: #### C MP, LIPA ####[facility] [address] [place] [address]Dr. Chrissy Frazier ALT [Catalytic activity/Vol] 47 U/L Normal 16-63 [facility] Comment on above: Performed By: #### C MP, LIPA ####[facility] [address] [place], [place] [address]Dr. Chrissy Freddie Anion gap [Moles/Vol] 23.2 mmol/L Normal [facility] Comment on above: Performed By: #### C MP, LIPA ####[facility] E[address]tf[address] [place], [place] [address]Dr. Chrissy Freddie AST [Catalytic activity/Vol] 23 U/L Normal 15-37 [facility] Comment on above: Performed By: #### C MP, LIPA ####[facility] Byuvyllflu[address] [place], [place] [address]Dr. Chrissy Freddie Bilirubin [Mass/Vol] 0.7 mg/dL Normal 0.2-1.0 [facility] Comment on above: Performed By: #### C MP, LIPA ####[facility] Rhqf[address]trzs[address] [place], [place] [address]Dr. Chrissy Freddie Calcium [Mass/Vol] 9.2 mg/dL Normal 8.5-10.1 [facility] Comment on above: Performed By: #### C MP, LIPA ####[facility] Fisvusqumo[address] [place], [place] [address]Dr. Tishrowan Freddie Chloride [Moles/Vol] 97 mmol/L Critically low 98-107 [facility] Comment on above: Performed By: #### C MP, LIPA ####[facility] Z[address] [place], [place] [address]Dr. Yirowan Frazier CO2 [Moles/Vol] 18.2 mmol/L Critically low 21.0-32.0 [facility] Comment on above: Performed By: #### C MP, LIPA ####[facility] [address] [place] [address]Dr. Chrissy Frazier Creatinine [Mass/Vol] 1.77 mg/dL Critically high 0.70-1.30 [facility] Comment on above: Performed By: #### C MP, LIPA ####[facility] [address] [place], [place] [address]Dr. Chrissy Frazier EGFR-AF ICELANDIC 54 mL/min/1.73m2 Critically low >=60 [facility] Comment on above: Performed By: #### C MP, LIPA ####[facility] F[address]uecm[address] [place], [place] [address]Dr. Chrissy Frazier EGFR-NON AF ICELANDIC 45 mL/min/1.73m2 Critically low >=60 [facility] Comment on above: Performed By: #### C MP, LIPA ####[facility] [address] [place], [place] [address]Dr. Chrissy Frazier Globulin (S) [Mass/Vol] 4.4 g/dL Normal [facility] Comment on above: Performed By: #### C MP, LIPA ####[facility] Mlet[address]zig[address] [place], [place] [address]Dr. Chrissy Frazier Glucose [Mass/Vol] 131 mg/dL Critically high 74-106 [facility] Comment on above: Performed By: #### C MP, LIPA ####[facility] [address] [place], [place] [address]Dr. Chrissy Frazier Potassium [Moles/Vol] 3.4 mmol/L Critically low 3.5-5.1 [facility] Comment on above: Performed By: #### C MP, LIPA ####[facility] [address] [place], [place] [address]Dr. Chrissy Frazier Protein [Mass/Vol] 9.1 g/dL Critically high 6.4-8.2 [facility] Comment on above: Performed By: #### C MP, LIPA ####[facility] [address] [place], [place] [address]Wg. Chrissy Frazier Sodium [Moles/Vol] 135 mmol/L Critically low 136-145 [facility] Comment on above: Performed By: #### C MP, LIPA ####[facility] [address] [place], [place] [address]Jr. Chrissy Frazier Urea nitrogen [Mass/Vol] 19.0 mg/dL Critically high 7.0-18.0 [facility] Comment on above: Performed By: #### C MANA, LIPA ####[facility] [address] [place] [id number]. Chrissy Frazier Urea nitrogen/Creatinine [Mass ratio] 10.7 mg/mg Normal [facility] Comment on above: Performed By: #### C MANA, LIPA ####[facility] [address] [place] [id number]. Chrissy Frazier BMPon 11-03-2020 Anion gap [Moles/Vol] 14 mmol/L Normal 6-16 [facility] Comment on above: Performed By: #### 2 [id number], [id number], [id number] #### [facility] [address] [place] [address] Calcium [Mass/Vol] 9.0 mg/dL Normal 8.9-11.1 [facility] Comment on above: Performed By: #### 2 672051, [id number], [id number] #### [facility] [address] [place] [address] Chloride [Moles/Vol] 104 mmol/L Normal 101-111 [facility] Comment on above: Performed By: #### 2 [id number], [id number], [id number] #### [facility] [address] [place] [address] CO2 [Moles/Vol] 21 mmol/L Normal 21-31 [facility] Comment on above: Performed By: #### 2 [id number], [id number], [id number] #### [facility] [address] [place] [address] Creatinine [Mass/Vol] 1.3 mg/dL Normal 0.5-1.3 [facility] Comment on above: Performed By: #### 2 033366, [id number], [id number] #### [facility] [address] [place] [address] Glucose [Mass/Vol] 111 mg/dL Normal 55-199 [facility] Comment on above: Result Comment: If t his glucose result represents a fasting glucose, interpretation should refer to the following reference range: 55-99 mg/dL Performed By: #### 2 275098, [id number], [id number] #### [facility] [address] [place] [address] Potassium [Moles/Vol] 2.9 mmol/L Low 3.5-5.3 [facility] Comment on above: Performed By: #### 2 115932, 7378142, [id number] #### [facility] [address] [place] [address] Sodium [Moles/Vol] 136 mmol/L Normal 135-145 [facility] Comment on above: Performed By: #### 2 688991, 9631766, [id number] #### [facility] [address] [place] [address] Urea nitrogen [Mass/Vol] 14 mg/dL Normal 5-21 [facility] Comment on above: Performed By: #### 2 996740, 9683847, [id number] #### [facility] [address] [place] [address] Urea nitrogen/Creatinine [Mass ratio] 11 No Units Normal 10-20 [facility] Comment on above: Performed By: #### 2 [id number], 0326798, [id number] #### [facility] [address] [place] [address] Lipase Levelon 11-03-2020 Lipase [Catalytic activity/Vol] 66 unit/L High 13-58 [facility] Comment on above: Performed By: #### 2 797238, 9100903, [id number] #### [facility] [address] [place] [address] Physician Orderon 11-03-2020 Physician Order [id number] 3#1.00CD:127 Normal [facility] eGFRon 11-03-2020 GFR/1.73 sq M predicted among blacks MDRD (S/P/Bld) [Vol rate/Area] mL/min/{1.73_m2} Normal >=59 [facility] Comment on above: Order Comment: Order added by Discern Expert. Result Comment: eGFR is race adjusted. AA=. Performed By: #### 2 431124, 1402689, [id number] #### [facility] [address] [place] [address] GFR/1.73 sq M predicted among non-blacks MDRD (S/P/Bld) [Vol rate/Area] mL/min/{1.73_m2} Normal >=59 [facility] Comment on above: Order Comment: Order added by Discern Expert. Result Comment: Lock Operator lindsay kidney disease could be indicated at eGFR's of less than 60 mL/min/1.73m2. Kidney failure is indicated at less than 15 mL/min/1.73m2. Performed By: #### 2 697972, 3625227, [id number] #### [facility] [address] [place] [address] Encounters Encounter Date Encounter Type Care Provider Facility Start: 05-16-2024 End: 05-16-2024 ambulatory TUNG NORTHEIM Not Available Start: 03-07-2024 End: 03-07-2024 ambulatory TUNG NORTHEIM Not Available Start: 03-30-2023 ambulatory Luis Angel Muniz cility:[facility] Start: 01-03-2023 End: 01-04-[address] MELODY MARIO . Facility: Start: 01-03-2023 End: 01-04-2023 ambulatory RAQUEL BANKS Facility:[facility] Start: 12-29-2022 End: 12-30-[address] MELODY MARIO . Facility:[facility] Start: 12-13-2022 End: 12-14-2022 ambulatory [facility] Start: 11-24-2022 End: 11-24-2022 ambulatory [facility] Start: 11-16-2022 End: 11-17-[address] [...] Date Payer Category Payer Self-pay 1990 Unknown [id number] 01.06. [id number] 1990 Unknown [id number] ..[id number] 1990 Unknown [id number] ..[id number] [id number] 1990 Unknown [id number] ..[id number] 0.1.612912.3.579.2593 1990 Unknown [id number] ..[id number] 0.1.419515.3.579.259 1990 Unknown [id number] 2.16.84 0.1.728813.3.579.2.593 1990 Unknown [id number] 2.16.84 0.1.059357.3.579.2.593 1990 Unknown [id number] 2.16.84 0.1.990833.3.579.2.593 1990 Unknown [id number] 2.16.84 0.1.330855.3.579.2.593 1990 Unknown [id number] 2.16.84 0.1.764026.3.579.2.593 1990 Unknown [id number] 2.16.84 0.1.756277.3.579.2.593 1990 Unknown [id number] 2.16.84 0.1.561929.3.579.2.593 1990 Unknown [id number] 2.16.84 0.1.841198.3.579.2.593 1990 Unknown [id number] 2.16.84 0.1.447817.3.579.2.1259 1990 Unknown [id number] 2.16.84 0.1.236112.3.579.2.1259 1959 Private Health Insurance [id number] Unknown [id number] 2.16.8 [id number] Progress note 11-24-2022 Note Date & Type [...] report that his father had a fatal WI at the age of 54. Stress test [...] factor modification -Plan (more content not included)... [facility] Progress note 11-24-2022 Note Date & [...] All other systems reviewed and are negative. [facility] Summary Purpose Family History No Family [...] and content) DATE CREATED AUTHOR 11/04/2020 [facility] DATE CREATED AUTHOR AUTHOR'S ORGANIZ ATION 01/08/2023 [facility] DATE CREATED AUTHOR AUTHOR'S ORGANIZ ATION 02/07/2023 [facility] DATE CREATED AUTHOR AUTHOR'S ORGANIZ ATION 04/01/2023 [facility] DATE CREATED AUTHOR AUTHOR'S ORGANIZ ATION 05/17/2024 [facility] FOR RECORDS PERTAINING TO PATIENTS [...] BE BASED ON THE PRIMARY CLINICAL RECORDS. [employer] provides no warranty or guarantee of the accuracy or completeness of information in this document.
[2024-07-15 06:42] VITALS: BP 172/87; PULSE 61; TEMP 37; O2SAT 100; BMI 38.7
--- NOTE | 2024-07-15 06:52 | ED_ITS ---
HPI HPI - General Adult General Chief complaint: Nausea/Vomiting/Diarrhea Stated complaint: vomiting Time Seen by Provider: 07/15/24 06:43 Source: patient Mode of arrival: walk-in History of Present Illness HPI narrative: 34-year-old male to the emergency department chief complaint of abdominal pain and vomiting. Patient reports he has a history of cannabinoid hyperemesis syndrome. He reports he smoked marijuana last week. He reports symptoms are typical for him. Reports normal bowel movements. Denies any fever, sweats, chills. Related Data Home Medications ?Medication ?Instructions ?Recorded ?Confirmed clonidine HCl 0.1 mg tablet 0.2 mg PO BID 11/17/23 03/19/24 hydroxyzine pamoate 25 mg capsule 25 mg PO QID PRN anxiety 11/17/23 03/19/24 lithium carbonate 300 mg capsule 300 mg PO BEDTIME 11/17/23 03/19/24 propranolol 80 mg tablet 80 mg PO DAILY 11/17/23 03/19/24 ascorbic acid (vitamin C) 1,000 mg 1 g PO DAILY 03/09/24 03/19/24 capsule cholecalciferol (vitamin D3) 10 10 mcg PO DAILY 03/09/24 03/19/24 mcg (400 unit) capsule meloxicam 15 mg tablet 15 mg PO DAILY 03/09/24 03/19/24 multivitamin (Daily Multi-Vitamin 1 tab PO DAILY 03/09/24 03/19/24 tablet) Allergies Allergy/AdvReac Type Severity Reaction Status Date / Time Penicillins Allergy Severe Unknown Verified 03/09/24 11:19 clarithromycin [From Biaxin] Allergy Unknown Verified 03/09/24 11:19 sulfamethoxazole Allergy unknown Verified 03/09/24 11:19 [From Bactrim] trimethoprim [From Bactrim] Allergy unknown Verified 03/09/24 11:19 Opioid HPI Opioid Management Most Recent Opioid Data: Last Pain Scale 5 03/19/24 10:46 Ur Phencyclidine Scrn Negative (NEGATIVE) 11/24/23 23:03 Review of Systems ROS Status of ROS 10 or more systems reviewed and unremark able except as noted in history and below [facility] Medical History (Updated 07/15/24 @ 06:56 by Hugh Sumner MD) Acquired deformity of right foot ?M21.961 - Unspecified acquired deformity of right lower leg (ICD-10) Displaced fracture of navicular [scaphoid] of right foot, sequela ?S92.251S - Displaced fracture of navicular [scaphoid] of right foot, sequela (ICD-10) Sprain of tarsometatarsal ligament of right foot ?S93.621A - Sprain of tarsometatarsal ligament of right foot, initial encounter (ICD-10) Post-traumatic osteoarthritis, right ankle and foot ?M19.171 - Post-traumatic osteoarthritis, right ankle and foot (ICD-10) Hemangioma ?D18.00 - Hemangioma unspecified site (ICD-10) Ulnar nerve entrapment ?G56.20 - Lesion of ulnar nerve, unspecified upper limb (ICD-10) Bronchitis ?J40 - Bronchitis, not specified as acute or chronic (ICD-10) Foot pain ?M79.673 - Pain in unspecified foot (ICD-10) Esophagitis ?K20.90 - Esophagitis, unspecified without bleeding (ICD-10) Cyclical vomiting ?R11.15 - Cyclical vomiting syndrome unrelated to migraine (ICD-10) Sciatica ?M54.30 - Sciatica, unspecified side (ICD-10) Insomnia ?G47.00 - Insomnia, unspecified (ICD-10) PTSD (post-traumatic stress disorder) ?F43.10 - Post-traumatic stress disorder, unspecified (ICD-10) Panic attacks ?F41.0 - Panic disorder [episodic paroxysmal anxiety] (ICD-10) Depression ?F32.A - Depression, unspecified (ICD-10) Anxiety ?F41.9 - Anxiety disorder, unspecified (ICD-10) Electronic cigarette use ?Z78.9 - Other specified health status (ICD-10) COVID-19 ?U07.1 - COVID-19 (ICD-10) Sleep apnea ?G47.30 - Sleep apnea, unspecified (ICD-10) GERD (gastroesophageal reflux disease) ?K21.9 - Gastro-esophageal reflux disease without esophagitis (ICD-10) Prediabetes ?R73.03 - Prediabetes (ICD-10) Abdominal pain ?R10.9 - Unspecified abdominal pain (ICD-10) Nausea & vomiting ?R11.2 - Nausea with vomiting, unspecified (ICD-10) Surgical History (Updated 03/09/24 @ 11:52 by Kimi Sierra NP) H/O shoulder surgery ?Z98.890 - Other specified postprocedural states (ICD-10) H/O colonoscopy ?Z98.890 - Other specified postprocedural states (ICD-10) History of esophagogastroduodenoscopy (EGD) ?Z98.890 - Other specified postprocedural states (ICD-10) S/P cubital tunnel release ?Z98.890 - Other specified postprocedural states (ICD-10) History of surgical removal of skin lesion ?Z98.890 - Other specified postprocedural states (ICD-10) ?Z87.2 - Personal history of diseases of the skin and subcutaneous tissue (ICD-10) Family History (Updated 03/09/24 @ 11:26 by Kimi Sierra NP) Other Family history of diabetes mellitus Family history of heart disease Family history of hypertension Family history of myocardial infarction Social History (Updated 03/09/24 @ 11:22 by Kimi Sierra NP) Within the past year, how often did you have a drink containing alcohol: never Score interpretation: A score less than 4 is consistent with normal alcohol consumption. 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 GENERAL: Vomiting adult male NEURO: Alert and oriented. Moves all extremities. Face is symmetric and expressive. EYES: PERRL. No scleral icterus or conjunctival injection. No discharge. HENT: Normocephalic, atraumatic. Hearing is grossly intact. Nares grossly patent and without discharge. Mucous membranes moist. NECK: No JVD. Patient moves neck without restriction. CARDIO: Rhythm regular. Normal rate. No murmur, rub, or gallop. Pulses equal bilaterally in the upper and lower extremity. No lower extremity edema. PULM: Lungs clear to auscultation in all taylor. No wheezes, rales, or rhonchi. No conversational dyspnea. No splinting, stridor, or accessory muscle use. GI/: Abdomen is soft and non-tender. Normoactive bowel sounds. EXTREMITIES: Symmetric muscle bulk. No joint swelling. No clubbing, cyanosis, or deformity. SKIN: Warm and dry. Normal turgor. No rash or lesions appreciated. PSYCH: Mood, affect, and interaction is appropriate to the setting. Constitutional Vital Signs, click to edit/add: Last Vital Signs Temp 98.6 F 07/15/24 06:42 Pulse 61 07/15/24 06:42 Resp 20 07/15/24 06:42 BP 172/87 H 07/15/24 06:42 Pulse Ox 100 07/15/24 06:42 O2 Del Method Room Air 07/15/24 06:42 Course Vital Signs Vital signs: Vital Signs Temperature 98.6 F 07/15/24 06:42 Pulse Rate 61 07/15/24 06:42 Respiratory Rate 20 07/15/24 06:42 Blood Pressure 172/87 H 07/15/24 06:42 Pulse Oximetry 100 07/15/24 06:42 Oxygen Delivery Method Room Air 07/15/24 06:42 Temperature 98.6 F 07/15/24 06:42 Pulse Rate 61 07/15/24 06:42 Respiratory Rate 20 07/15/24 06:42 Blood Pressure 172/87 H 07/15/24 06:42 Pulse Oximetry 100 07/15/24 06:42 Oxygen Delivery Method Room Air 07/15/24 06:42 Medical Decision Making MDM Narrative Medical decision making narrative: 34-year-old male to the emergency department with chief complaint of vomiting and abdominal pain. Vital stable, the patient is afebrile. His abdominal examination is benign. Symptomatic medications are ordered. Care was signed out to Dr. Hill. Medical Records Medical records reviewed: Yes I reviewed the patient's medical records Discharge Plan Discharge Chief Complaint: Nausea/Vomiting/Diarrhea Clinical Impression: Vomiting Patient Disposition: Still a Patient Prescriptions / Home Meds: No Action clonidine HCl 0.1 mg tablet 0.2 mg PO BID hydroxyzine pamoate 25 mg capsule 25 mg PO QID PRN (Reason: anxiety) lithium carbonate 300 mg capsule 300 mg PO BEDTIME propranolol 80 mg tablet 80 mg PO DAILY meloxicam 15 mg tablet 15 mg PO DAILY cholecalciferol (vitamin D3) 10 mcg (400 unit) capsule 10 mcg PO DAILY ascorbic acid (vitamin C) 1,000 mg capsule 1 g PO DAILY multivitamin [Daily Multi-Vitamin] Tablet 1 tab PO DAILY Print Language: Anguillan Referrals: Janes Mario MD [Primary Care Provider] - 1 week
[2024-07-15] MEDS: KETOROLAC TROMETHAMINE 30 MG/ML VIAL 15 MG IVP (07:07)
[2024-07-15] MEDS: 0.9 % SODIUM CHLORIDE 1,000 ML 999 ML IV (07:07)
[2024-07-15] MEDS: HYDROMORPHONE HCL 1 MG/ML CARTRIDGE IVP (07:08)
[2024-07-15] MEDS: ONDANSETRON PF 4 MG/2 ML VIAL IV ×2 (07:08→08:02)
[2024-07-15 07:36] LABS: Basophils Percent Auto 0.1 % (0.2-2.0); Eosinophils Percent Auto 0.1 % (0.9-7.0); Hematocrit 47.8 % (42.0-54.0); Hemoglobin 16.3 g/dL (14.0-18.0); Immature Granulocytes Pct Auto 0.6 % (0.0-0.5); Lymphocytes Absolute Auto 1.7 10^3/uL (1.2-3.8); Lymphocytes Percent Auto 10.2 % (20.5-60.0); Mean Corpuscular HGB Conc 34.1 g/dL (29.9-35.2); Mean Corpuscular Hemoglobin 28.2 pg (25.9-34.0); Mean Corpuscular Volume 82.6 fL (80.0-94.0); Mean Platelet Volume 12.1 fL (9.5-13.5); Monocytes Absolute Auto 0.3 10^3/uL (0.3-0.8); Monocytes Percent Auto 1.8 % (1.7-12.0); Neutrophils Absolute Auto 14.1 10^3/uL (1.4-6.5); Neutrophils Percent Auto 87.2 % (43.0-75.0); Platelet Count 476 10^3/uL (150-450); Red Blood Count 5.79 10^6/uL (4.70-6.10); Red Cell Distribution Width 13.7 % (11.0-15.0); White Blood Count 16.2 10^3/uL (4.0-11.0)
[2024-07-15 08:11] LABS: Alanine Aminotransferase 44 U/L (16-63); Albumin Globulin Ratio 1.1; Albumin Level 4.1 g/dL (3.4-5.0); Alkaline Phosphatase 90 U/L (46-116); Anion Gap 20.6; Aspartate Amino Transferase 20 U/L (15-37); BUN Creatinine Ratio 6.6; Bilirubin Total 0.6 mg/dL (0.2-1.0); Calcium 9.2 mg/dL (8.5-10.1); Carbon Dioxide 19.9 mmol/L (21.0-32.0); Chloride 105 mmol/L (98-107); Estimated GFR (African America 58 (>=60); Estimated GFR (Non-African Ame 48 (>=60); Globulin 3.6 g/dL; Glucose 149 mg/dL (74-106); Potassium 3.5 mmol/L (3.5-5.1); Sodium 142 mmol/L (136-145); Total Protein 7.7 g/dL (6.4-8.2)
[2024-07-15 08:47] VITALS: BP 144/78; PULSE 88; O2SAT 98
== END 2024-07-15 08:54 | disposition home or self-care (01) ==
PROVIDERS: Student in an Organized Health Care Education/Training Program; Emergency Provider Emergency Medicine Emergency Medical Services; PCP Family Medicine
DX: R11.15 Cyclical vomiting syndrome unrelated to migraine (principal); F17.200 Nicotine dependence, unspecified, uncomplicated; F12.90 Cannabis use, unspecified, uncomplicated
CPT/HCPCS: 36415; 80053; 83690; 85025; 96361; 96374; 96375; 96376; 99284; J1170; J1885; J2405

== ENCOUNTER 2024-07-15 16:21 | Observation (INO) | payer OTHER, SELFPAY ==
[2024-07-15 16:24] VITALS: BP 116/94; PULSE 85; TEMP 36.8; O2SAT 98; BMI 37.6
--- OUTSIDE RECORDS SUMMARY | 2024-07-15 16:27 | XMS_ITS | CCD ---
Author Organization [facility] CliniSyal Care Team Providers Care Customs Compliance Analyst Name Role Phone RAQUEL BANKS Referring [...] to adverse reactions to drug (disorder) 09-28-20 [facility] Repository (1 source) Sulfamethoxazole / Trimethoprim; Translations: [SULFAMETHOXAZOLE-TR IMETHOPRIM] Drug Allergy 01-27-20 [facility] Repository (1 source) Clarithromycin Drug Allergy [facility] Repository (1 source) Sulfamethoxazole / Trimethoprim Drug Allergy 05-27-20 17 [facility] Repository (1 source) Sulfamethoxazole Drug Allergy 03-20-20 [facility] Repository (1 source) Trimethoprim Drug Allergy 03-20-20 [facility] Repository Problems Active Problems Problem Classification Problem [...] 11-16-2022 Episodic Other aftercare (1 source) Other nursing admin (current) drug therapy; Translations: [OTH PENITENTIARY CURRENT DRUG THERAPY] Onset: 02-07-2023 Episodic Other [...] ABS 0.09 Index Value Normal 0.00-0.79 [facility] Comment on above: Result Comment: Nega tive <0.80 Equivocal 0.80 - 0.89 Positive >0.89 Performed By: #### H PYLLC ####[facility] Luwxamdcgc99[address] [place] [address]Dr. Chrissy Frazier AMYLASEon 01-04-2023 Amylase [Catalytic activity/Vol] 34 U/L Normal 25-115 [facility] Comment on above: Performed By: #### A MY ####[facility] Smtkilgulc[address] [place], [place] [address]Dr. Chrissy Freddie CBC AUTO DIFFon 01-04-2023 BASO # 0.0 103/ul Normal 0.0-0.1 [facility] Comment on above: Performed By: #### C BC ####[facility] Lsdvfdyezj[address] [place], [place] [address]Dr. Chrissy Frazier Basophils/100 WBC (Bld) 0.1 % Critically low 0.2-2.0 [facility] Comment on above: Performed By: #### C BC ####[facility] Xvlahhzvep[address] [place], [place] [address]Dr. Tishrowan Frazier EO # 0.0 103/ul Normal 0.0-0.7 [facility] Comment on above: Performed By: #### C BC ####[facility] Gqipmlebzf[address] [place], [place] [address]Dr. Chrissy Frazier Eosinophils/100 WBC (Bld) 0.1 % Critically low 0.9-7.0 [facility] Comment on above: Performed By: #### C BC ####[facility] Buaudnzsrl[address] [place], [place] [address]DrNancy Frazier Erythrocyte distribution width (RBC) [Ratio] 14.0 % Normal 11.0-15.0 [facility] Comment on above: Performed By: #### C BC ####[facility] Hovszjzqne[address] [place], [place] [address]Dr. Chrissy Frazier Hematocrit (Bld) [Volume fraction] 40.4 % Critically low 42.0-54.0 [facility] Comment on above: Performed By: #### C BC ####[facility] Gjanrhouzg6246 [place] [address]Dr. Chrissy Frazier Hemoglobin (Bld) [Mass/Vol] 13.8 g/dL Critically low 14.0-18.0 [facility] Comment on above: Performed By: #### C BC ####[facility] Mehmibphdf8[address] [place] [address]Dr. Chrissy Freddie IG # 0.05 10e3/ul Critically high 0.00-0.03 [facility] Comment on above: Performed By: #### C BC ####[facility] Geqvmcoomb1425 [place] [address]Dr. Tishrowan Frazier IG % 0.3 % Normal 0.0-0.5 [facility] Comment on above: Performed By: #### C BC ####[facility] Noywwuuhxn23[address] [place], [place] [address]Dr. Chrissy Frazier LYMPH # 1.7 103/ul Normal 1.2-3.8 [facility] Comment on above: Performed By: #### C BC ####[facility] Hzyroslvxq3769 [place] [address]Dr. Chrissy Freddie Lymphocytes/100 WBC (Bld) 11.9 % Critically low 20.5-60.0 [facility] Comment on above: Performed By: #### C BC ####[facility] Ambhlajppc2283 [place] [address]Dr. Chrissy Frazier MANUAL DIFF REQ NO Normal [facility] Comment on above: Performed By: #### C BC ####[facility] Zorvcineuv5833 [place] [phone]. Chrissy Freddie MCH (RBC) [Entitic mass] 29.3 pg Normal 25.9-34.0 [facility] Comment on above: Performed By: #### C BC ####[facility] Tuwatzibil5948 [place] [phone]. Tishrowan Frazier MCHC (RBC) [Mass/Vol] 34.2 g/dL Normal 29.9-35.2 [facility] Comment on above: Performed By: #### C BC ####[facility] Uzmcqocoez3528 [place] [phone]. Chrissy Frazier MCV (RBC) [Entitic vol] 85.8 fL Normal 80.0-94.0 [facility] Comment on above: Performed By: #### C BC ####[facility] Hdcarzzlfh0721 [place] [phone]. Chrissy Freddie MONO # 0.6 103/ul Normal 0.3-0.8 [facility] Comment on above: Performed By: #### C BC ####[facility] Apqbwkbkpr1600 [place] [address]Dr. Chrissy Freddie Monocytes/100 WBC (Bld) 4.2 % Normal 1.7-12.0 [facility] Comment on above: Performed By: #### C BC ####[facility] Brabwqagsz0540[address] [place], [place] [address]Dr. Chrissy Frazier NEUT # 12.0 103/ul Critically high 1.4-6.5 [facility] Comment on above: Performed By: #### C BC ####[facility] Pwgfvbhwfr[address] [place], [place] [address]Dr. Tishrowan Frazier Neutrophils/100 WBC (Bld) 83.4 % Critically high 43.0-75.0 [facility] Comment on above: Performed By: #### C BC ####[facility] Zoqbgznhbu7166[address] [place], [place] [address]Dr. Chrissy Freddie Platelet mean volume (Bld) [Entitic vol] 10.4 fL Normal 9.5-13.5 [facility] Comment on above: Performed By: #### C BC ####[facility] Gqwdsxxqer[address] [place], [place] [address]Dr. Chrissy Frazier PLT 313 103/ul Normal 150-450 [facility] Comment on above: Performed By: #### C BC ####[facility] Gdlbbuennt4842 [place] [phone]. Chrissy Frazier RBC 4.71 106/ul Normal 4.70-6.10 [facility] Comment on above: Performed By: #### C BC ####[facility] Yfuunuoyjr2120 [place] [phone]. Chrissy Frazier WBC 14.4 103/ul Critically high 4.0-11.0 [facility] Comment on above: Performed By: #### C BC ####[facility] Nyntzesbdm3873 [place] [phone]. Chrissy Frazier CULTURE URINEon 01-04-2023 CULTURE URINE Culture Observations: NO GROWTH. Normal The [facility] Comment on above: Performed By: #### U RCX ####[facility] Oskrrdjsab0699 [place] [address]Dr. Chrissy Frazier DRUG SCREEN RAPID (URINE)on 01-04-2023 AMP Negative Normal NEGATIVE The [facility] Comment on above: Performed By: #### D REYES, UAMIC ####[facility] Gtwkemmgar3703 [place] [address]Dr. Chrissy Frazier BAR Negative Normal NEGATIVE [facility] Comment on above: Performed By: #### D REYES, UAMIC ####[facility] Jjagwbehlv2745 [place] [address]Dr. Chrissy Frazier BUP Negative Normal NEGATIVE The [facility] Comment on above: Performed By: #### D CHAYAD, UAMIC ####[facility] Sltqefdiwq2312 [place] [address]Dr. Chrissy Frazier BZO Positive Abnormal NEGATIVE The [facility] Comment on above: Performed By: #### D REYES, UAMIC ####[facility] Fqovxliktb8290 [place] [address]Dr. Chrissy Frazier LAUREN Negative Normal NEGATIVE The [facility] Comment on above: Performed By: #### D REYES, UAMIC ####[facility] Nhwqznkhyh5511 [place] [address]Dr. Chrissy Frazier CUT-OFFS SEE BELOW Normal [facility] Comment on above: Result Comment: AMP [...] ng/mL Performed By: #### Amelie CHAMBERS, UAMIC ####[facility] X[address]lejrsphp24[address] [place], [place] [address]Dr. [facility] DRUG CUT HEADER DRUG CLASS TEST SYSTEM CUT-OFF CONCENTRATIONS ARE FOLLOWS: Normal The [facility] Comment on above: Performed By: #### Amelie CHAMBERS UAMIC ####[facility] Njlddfnzco29[address] [place], [place] [address]Dr. Chrissy [facility] mAMP Negative Normal NEGATIVE The [facility] Comment on above: Performed By: #### Amelie CHAMBERS UAMIC ####[facility] Feptqlxdxs0535[address] [place], [place] [address]Dr. [facility] MTD Negative Normal NEGATIVE [facility] Comment on above: Performed By: #### Amelie CHAMBERS, UAMIC ####[facility] Bmnbwpdycf3626[address] [place], [place] [address]Dr. [facility] OPI Negative Normal NEGATIVE The [facility] Comment on above: Performed By: #### Amelie CHAMBERS, UAMIC ####[facility] Podtynsnri6330[address] [place], [place] [address]Dr. [facility] OXY Negative Normal NEGATIVE The [facility] Comment on above: Performed By: #### Amelie CHAMBERS, UAMIC ####[facility] Pdjnkeipha0330[address] [place], [place] [address]Dr. [facility] PCP Negative Normal NEGATIVE The [facility] Comment on above: Performed By: #### Amelie CHAMBERS, UAMIC ####[facility] Aukqjutyyb934[address] [place], [place] [address]Dr. [facility] PPX Negative Normal NEGATIVE The [facility] Comment on above: Performed By: #### D REYES UAMIC ####[facility] Ztnzettxhw2888 [place] [address]Dr. Chrissy Frazier TCA Positive Abnormal NEGATIVE [facility] Comment on above: Performed By: #### D REYES UAMIC ####[facility] Zmlctagldf9552 [place] [address]Dr. Chrissy Frazier THC Positive Abnormal NEGATIVE The [facility] Comment on above: Performed By: #### D REYES UAMIC ####[facility] Tagwzpkvvd1892 [place] [address]Dr. Chrissy Frazier LIPASEon 01-04-2023 Lipase [Catalytic activity/Vol] 57.0 U/L Critically low 73.0-393.0 [facility] Comment on above: Performed By: #### L IPA ####[facility] Gcbxhfgzvl9[address] [place], [place] [address]Dr. Chrissy Frazier PROF 14(COMP METB)on 023 Albumin [Mass/Vol] 3.6 g/dL Normal 3.4-5.0 [facility] Comment on above: Performed By: #### C MP ####[facility] Xgywscnzhn730[address] [place], [place] [address]Dr. Chrissy Frazier Albumin/Globulin [Mass ratio] 1.0 {ratio} Normal [facility] Comment on above: Performed By: #### C MP ####[facility] Sefektuazc[address] [place], [place] [address]Dr. Chrissy Frazier ALP [Catalytic activity/Vol] 67 U/L Normal 46-116 [facility] Comment on above: Performed By: #### C MP ####[facility] Vvredulebp3013[address] [place], [place] [address]Dr. Chrissy Frazier ALT [Catalytic activity/Vol] 26 U/L Normal 16-63 [facility] Comment on above: Performed By: #### C MP ####[facility] Emodihbhxo3428 [place] [address]Dr. Chrissy Frazier Anion gap [Moles/Vol] 16.3 mmol/L Normal [facility] Comment on above: Performed By: #### C MP ####[facility] Kocyxsscde6880 [place] [phone]. Chrissy Frazier AST [Catalytic activity/Vol] 17 U/L Normal 15-37 [facility] Comment on above: Performed By: #### C MP ####[facility] Kdutbzkvhy4568 [place] [phone]. Chrissy Frazier Bilirubin [Mass/Vol] 0.4 mg/dL Normal 0.2-1.0 [facility] Comment on above: Performed By: #### C MP ####[facility] Nxbrudpztx9[address] [place], [place] [address]Dr. Chrissy Frazier Calcium [Mass/Vol] 8.7 mg/dL Normal 8.5-10.1 [facility] Comment on above: Performed By: #### C MP ####[facility] Aglqdtmhkk6275[address] [place], [place] [address]Dr. Chrissy Frazier Chloride [Moles/Vol] 106 mmol/L Normal 98-107 [facility] Comment on above: Performed By: #### C MP ####[facility] Rplppjuklj6143[address] [place], [place] [address]Dr. Chrissy Frazier CO2 [Moles/Vol] 22.6 mmol/L Normal 21.0-32.0 [facility] Comment on above: Performed By: #### C MP ####[facility] Tcaimjenaw475[address] [place], [place] [address]Dr. Chrissy Frazier Creatinine [Mass/Vol] 0.99 mg/dL Normal 0.70-1.30 [facility] Comment on above: Performed By: #### C MP ####[facility] Brkjfklyle2741 [place] [phone]. Chrissy Frazier EGFR-AF ALBANIAN >60 Normal >=60 [facility] Comment on above: Performed By: #### C MP ####[facility] Zfcxiglfvx2039 [place] [address]Dr. Chrissy Frazier EGFR-NON AF ALBANIAN >60 Normal >=60 [facility] Comment on above: Performed By: #### C MP ####[facility] Lwkbwauzcx4761 [place] [address]Dr. Chrissy Frazier Globulin (S) [Mass/Vol] 3.6 g/dL Normal [facility] Comment on above: Performed By: #### C MP ####[facility] Subytinikd8752 [place] [address]Dr. Chrissy Frazier Glucose [Mass/Vol] 138 mg/dL Critically high 74-106 [facility] Comment on above: Performed By: #### C MP ####[facility] Nyoqrycqxi8676 [place] [address]Dr. Chrissy Frazier Potassium [Moles/Vol] 3.9 mmol/L Normal 3.5-5.1 [facility] Comment on above: Performed By: #### C MP ####[facility] Myhhugculp4299[address] [place], [place] [address]Dr. Chrissy Frazier Protein [Mass/Vol] 7.2 g/dL Normal 6.4-8.2 [facility] Comment on above: Performed By: #### C MP ####[facility] Ixranjbyzp1229[address] [place], [place] [address]Dr. Chrissy Frazier Sodium [Moles/Vol] 141 mmol/L Normal 136-145 [facility] Comment on above: Performed By: #### C MP ####[facility] Rmdwulopso603[address] [place], [place] [address]Dr. Chrissy Frazier Urea nitrogen [Mass/Vol] 10.0 mg/dL Normal 7.0-18.0 [facility] Comment on above: Performed By: #### C MP ####[facility] Kcausthydc2156[address] [place], [place] [address]Dr. Chrissy Frazier Urea nitrogen/Creatinine [Mass ratio] 10.1 mg/mg Normal [facility] Comment on above: Performed By: #### C MP ####[facility] Epqucknttp7298[address] [place], [place] [address]Dr. Chrissy Frazier UA RANDOM W/MICROSCOPICon BACTERIA TRACE Abnormal NONE SEEN The [facility] Comment on above: Performed By: #### D REYES, UAMIC ####[facility] Erreztjlfh2430 [place] [address]Dr. Chrissy Frazier Bilirubin Ql (U) Negative Normal NEGATIVE [facility] Comment on above: Performed By: #### Amelie CHAMBERS, UAMIC ####[facility] Ffmzkpvqwb033[address] [place], [place] [address]Dr. Chrissy Frazier CAST NONE SEEN Normal NONE SEEN The [facility] Comment on above: Performed By: #### Amelie CHAMBERS, UAMIC ####[facility] Kwypelinxj15[address] [place], [place] [address]Dr. Chrissy Frazier Clarity (U) CLEAR Normal CLEAR [facility] Comment on above: Performed By: #### Amelie CHAMBERS, UAMIC ####[facility] Anghlfxivi2410[address] [place], [place] [address]Dr. Chrissy Frazier Color (U) YELLOW Normal YELLOW The [facility] Comment on above: Performed By: #### Amelie CHAMBERS, UAMIC ####[facility] Kykqsccqkh6014[address] [place], [place] [address]Dr. Chrissy Frazier Crystals LM Nom (Urine sed) NONE SEEN Normal NONE SEEN The [facility] Comment on above: Performed By: #### Amelie CHAMBERS, UAMIC ####[facility] Hkscjomzqv670[address] [place], [place] [address]Dr. Chrissy Frazier Epithelial cells LM Ql (Urine sed) NONE SEEN Normal NONE SEEN /RARE [facility] Comment on above: Performed By: #### Amelie CHAMBERS, UAMIC ####[facility] Pgyoftxgrj6950[address] [place], [place] [address]Dr. Chrissy Frazier Glucose Ql (U) Negative Normal NEGATIVE [facility] Comment on above: Performed By: #### D REYES, UAMIC ####[facility] Wsnvheqyoe5315[address] [place], [place] [address]Dr. Chrissy Frazier Hemoglobin Ql (U) Negative Normal NEGATIVE The [facility] Comment on above: Performed By: #### Amelie CHAMBERS, UAMIC ####[facility] Wxnvxldvvc1114[address] [place], [place] [address]Dr. Chrissy Frazier Ketones Ql (U) 15 mg/dl Abnormal NEGATIVE [facility] Comment on above: Performed By: #### Amelie CHAMBERS UAMIC ####[facility] Tfgazthdfb4501 [place] [address]Dr. Chrissy Frazier LEUKOCYTES Negative Normal NEGATIVE The [facility] Comment on above: Performed By: #### Amelie CHAMBERS UAMIC ####[facility] Enbdiohlrt6040 [place] [address]Dr. Chrissy Frazier MUCOUS NONE SEEN Normal NONE SEEN The [facility] Comment on above: Performed By: #### Amelie CHAMBERS UAMIC ####[facility] Fsocfbtnug5724 [place] [address]Dr. Chrissy Frazier Nitrite Ql (U) Negative Normal NEGATIVE [facility] Comment on above: Performed By: #### Amelie CHAMBERS UAMIC ####[facility] Rgvimloadn6320 [place] [address]Dr. Chrissy Frazier pH (U) 6.5 [pH] Normal 5-9 [facility] Comment on above: Performed By: #### Amelie CHAMBERS UAMIC ####[facility] Msecbqthqj6440[address] [place], [place] [address]Dr. Chrissy Frazier RBC NONE SEEN Abnormal 0-2 [facility] Comment on above: Performed By: #### Amelie CHAMBERS UAMIC ####[facility] Ndqgxxhloi2886[address] [place], [place] [address]Dr. Chrissy Frazier SPEC GRAVITY 1.020 Normal 1.005-<=1.025 [facility] Comment on above: Performed By: #### Amelie CHAMBERS UAMIC ####[facility] Ovztuutmah[address] [place], [place] [address]Dr. Chrissy Frazier UA PROTEIN Negative Normal NEGATIVE/ TRACE [facility] Comment on above: Performed By: #### Amelie CHAMBERS UAMIC ####[facility] Hxzuikugxc4258[address] [place], [place] [address]Dr. Chrissy Frazier Urobilinogen Qn (U) 0.2 {Estrellita'U}/dL Normal 0.2 - 1. 0 [facility] Comment on above: Performed By: #### Amelie CHAMBERS UAMIC ####[facility] Xxvrgqfqsk3475 [place] [id number]. Chrissy Frazier WBC NONE SEEN Normal NONE SEEN The [facility] Comment on above: Performed By: #### D REYES UAMIC ####[facility] Nejtcflxqv4893 [place] [address]Dr. Chrissy Frazier AMMONIAon 01-03-2023 Ammonia (P) [Moles/Vol] 17 umol/L Normal 11-32 [facility] Comment on above: Performed By: #### A MM ####[facility] Nnpowfyxzo7080 [place] [address]Dr. Chrissy Frazier AMYLASEon 01-03-2023 Amylase [Catalytic activity/Vol] 38 U/L Normal 25-115 [facility] Comment on above: Performed By: #### L IPA, TERRENCE, CMP, MG ####[facility] Cybvqzxpzr7976 [place] [address]Dr. Chrissy Frazier CBC AUTO DIFFon 01-03-2023 BASO # 0.1 103/ul Normal 0.0-0.1 [facility] Comment on above: Performed By: #### C BC ####[facility] Hygfkhiyma1656 [place] [address]Dr. Chrissy Frazier Basophils/100 WBC (Bld) 0.4 % Normal 0.2-2.0 [facility] Comment on above: Performed By: #### C BC ####[facility] Jmtzsysymm6776 [place] [address]Dr. Chrissy Frazier EO # 0.1 103/ul Normal 0.0-0.7 [facility] Comment on above: Performed By: #### C BC ####[facility] Kfzjsrubhh5472 [place] [address]Dr. Chrissy Frazier Eosinophils/100 WBC (Bld) 0.3 % Critically low 0.9-7.0 [facility] Comment on above: Performed By: #### C BC ####[facility] Mcjwoqvkfq1371 [place] [address]Dr. Chrissy Frazier Erythrocyte distribution width (RBC) [Ratio] 13.7 % Normal 11.0-15.0 [facility] Comment on above: Performed By: #### C BC ####[facility] Xxclofkkzf3390 [place] [address]Dr. Tishrowan Freddie Hematocrit (Bld) [Volume fraction] 46.1 % Normal 42.0-54.0 [facility] Comment on above: Performed By: #### C BC ####[facility] Lxroglrcws9011 [place] [address]Dr. Chrissy Frazier Hemoglobin (Bld) [Mass/Vol] 15.4 g/dL Normal 14.0-18.0 [facility] Comment on above: Performed By: #### C BC ####[facility] Earmkceptw[address] [place], [place] [address]Dr. Chrissy Frazier IG # 0.11 10e3/ul Critically high 0.00-0.03 [facility] Comment on above: Performed By: #### C BC ####[facility] Ikcggroqva26[address] [place], [place] [address]Dr. Chrissy Frazier IG % 0.6 % Critically high 0.0-0.5 [facility] Comment on above: Performed By: #### C BC ####[facility] Idvhldratx88[address] [place], [place] [address]Dr. Chrissy Frazier LYMPH # 2.5 103/ul Normal 1.2-3.8 [facility] Comment on above: Performed By: #### C BC ####[facility] Fowplbxyha8[address] [place], [place] [address]DrNancy Frazier Lymphocytes/100 WBC (Bld) 13.9 % Critically low 20.5-60.0 [facility] Comment on above: Performed By: #### C BC ####[facility] Uuymxcpzot8[address] [place], [place] [address]DrNancy Frazier MANUAL DIFF REQ NO Normal [facility] Comment on above: Performed By: #### C BC ####[facility] Yhuujkkiib2739 [place] [address]Dr. Chrissy Frazier MCH (RBC) [Entitic mass] 28.6 pg Normal 25.9-34.0 [facility] Comment on above: Performed By: #### C BC ####[facility] Axucszjioo9896 [place] [address]Dr. Chrissy Frazier MCHC (RBC) [Mass/Vol] 33.4 g/dL Normal 29.9-35.2 [facility] Comment on above: Performed By: #### C BC ####[facility] Wfevivtsse5235 [place] [address]Dr. Chrissy Frazier MCV (RBC) [Entitic vol] 85.7 fL Normal 80.0-94.0 [facility] Comment on above: Performed By: #### C BC ####[facility] Xffyolcsvf[address] [place], [place] [address]DrNancy Frazier MONO # 0.7 103/ul Normal 0.3-0.8 [facility] Comment on above: Performed By: #### C BC ####[facility] Oexwtlfbum74[address] [place], [place] [address]Dr. Chrissy Frazier Monocytes/100 WBC (Bld) 4.0 % Normal 1.7-12.0 [facility] Comment on above: Performed By: #### C BC ####[facility] Tqjkshyz[address] [place], [place] [address]DrNancy Frazier NEUT # 14.3 103/ul Critically high 1.4-6.5 [facility] Comment on above: Performed By: #### C BC ####[facility] Xfsxtzxbgg8[address] [place], [place] [address]Dr. Chrissy Frazier Neutrophils/100 WBC (Bld) 80.8 % Critically high 43.0-75.0 [facility] Comment on above: Performed By: #### C BC ####[facility] Pmlhehnxgn34[address] [place], [place] [address]DrNancy Frazier Platelet mean volume (Bld) [Entitic vol] 10.4 fL Normal 9.5-13.5 [facility] Comment on above: Performed By: #### C BC ####[facility] Asiytqiqbe8[address] [place], [place] [address]Dr. Chrissy Frazier PLT 437 103/ul Normal 150-450 [facility] Comment on above: Performed By: #### C BC ####[facility] Xxzwuuyyab4[address] [place] [address]Dr. Chrissy Frazier RBC 5.38 106/ul Normal 4.70-6.10 [facility] Comment on above: Performed By: #### C BC ####[facility] Hqemwfezdr2581 [place] [address]Dr. Chrissy Frazier WBC 17.7 103/ul Critically high 4.0-11.0 [facility] Comment on above: Performed By: #### C BC ####[facility] Nrmcieoyfg9837 [place] [address]Dr. Chrissy Frazier CULTURE BLOODon 01-03-2023 Microscopic examination of blood, culture Culture Observations: NO GROWTH AT 5 DAYS. Normal The [facility] Comment on above: Performed By: #### B LDCX1 ####[facility] Fekikiayue0[address] [place], [place] [address]Dr. Chrissy Frazier Performed By: #### B LDCX2 ####[facility] Gkwhlkreti3084 [place] [address]Dr. Chrissy Frazier ECHOCARDIO M/2D COMPLETEon 0 01-03-2023 ECHOCARDIO M/2D COMPLETE Normal [facility] LACTATE/LACTIC ACIDon 2022 Lactate [Moles/Vol] 2.7 mmol/L Critically high 0.4-1.9 [facility] Comment on above: Performed By: #### L ACT ####[facility] Nccnijqkix1207 [place] [address]Dr. Chrissy Frazier Lactate [Moles/Vol] 6.3 mmol/L Critically high 0.4-1.9 [facility] Comment on above: Performed By: #### L ACT ####[facility] Apidzuqmbq0333 [place] [address]Dr. Chrissy Frazier LIPASEon 01-03-2023 Lipase [Catalytic activity/Vol] 74.0 U/L Normal 73.0-393.0 [facility] Comment on above: Performed By: #### L IPA, TERRENCE, CMP, MG ####[facility] Bewvpzqhsg3094 [place] [address]Dr. Chrissy Frazier MAGNESIUMon 01-03-2023 Magnesium [Mass/Vol] 1.6 mg/dL Critically low 1.8-2.4 [facility] Comment on above: Performed By: #### L IPA, TERRENCE, CMP, MG ####[facility] Cercyaolzi0289 [place] [address]Dr. Chrissy Frazier PROF 14(COMP METB)on 023 Albumin [Mass/Vol] 4.3 g/dL Normal 3.4-5.0 [facility] Comment on above: Performed By: #### L IPA, TERRENCE, CMP, MG ####[facility] Npbtzkqemp5007 [place] [address]Dr. Chrissy Frazier Albumin/Globulin [Mass ratio] 1.1 {ratio} Normal [facility] Comment on above: Performed By: #### L IPA, TERRENCE, CMP, MG ####[facility] Muysvlpmog8434 [place] [address]Dr. Chrissy Frazier ALP [Catalytic activity/Vol] 87 U/L Normal 46-116 [facility] Comment on above: Performed By: #### L IPA, TERRENCE, CMP, MG ####[facility] Zabpbehssb0159 [place] [address]Dr. Chrissy Frazier ALT [Catalytic activity/Vol] 32 U/L Normal 16-63 [facility] Comment on above: Performed By: #### L IPA, TERRENCE, CMP, MG ####[facility] Wimhpcempv5790 [place] [address]Dr. Chrissy Frazier Anion gap [Moles/Vol] 24.0 mmol/L Normal [facility] Comment on above: Performed By: #### L IPA, TERRENCE, CMP, MG ####[facility] Pqmviftlmd5074 [place] [address]Dr. Chrissy Frazier AST [Catalytic activity/Vol] 22 U/L Normal 15-37 [facility] Comment on above: Performed By: #### L IPA, TERRENCE, CMP, MG ####[facility] Rqtoalclty2578 [place] [address]Dr. Chrissy Frazier Bilirubin [Mass/Vol] 0.6 mg/dL Normal 0.2-1.0 [facility] Comment on above: Performed By: #### L IPA, TERRENCE, CMP, MG ####[facility] Tnkuqxlmgx0028 [place] [address]Dr. Chrissy Frazier Calcium [Mass/Vol] 9.6 mg/dL Normal 8.5-10.1 [facility] Comment on above: Performed By: #### L IPA, TERRENCE, CMP, MG ####[facility] Gmzxkagcyb1030 [place] [address]Dr. Chrissy Frazier Chloride [Moles/Vol] 103 mmol/L Normal 98-107 [facility] Comment on above: Performed By: #### L IPA, TERRENCE, CMP, MG ####[facility] Sioxkiuwyg5034[address] [place], [place] [address]Dr. Chrissy Frazier CO2 [Moles/Vol] 16.7 mmol/L Critically low 21.0-32.0 [facility] Comment on above: Performed By: #### L IPA, TERRENCE, CMP, MG ####[facility] Eirjexsyuq[address] [place], [place] [address]Dr. Chrissy Frazier Creatinine [Mass/Vol] 1.42 mg/dL Critically high 0.70-1.30 [facility] Comment on above: Performed By: #### L IPA, TERRENCE, CMP, MG ####[facility] Oiickgwodi1439 [place] [address]Dr. Chrissy Frazier EGFR-AF ALBANIAN >60 Normal >=60 [facility] Comment on above: Performed By: #### L IPA, TERRENCE, CMP, MG ####[facility] Luwoisuqfn1074[address] [place], [place] [address]Dr. Chrissy Frazier EGFR-NON AF ALBANIAN 58 mL/min/1.73m2 Critically low >=60 [facility] Comment on above: Performed By: #### L IPA, TERRENCE, CMP, MG ####[facility] Erdmhytxgb1447 [place] [address]Dr. Chrissy Frazier Globulin (S) [Mass/Vol] 4.0 g/dL Normal [facility] Comment on above: Performed By: #### L IPA, TERRENCE, CMP, MG ####[facility] Ooydnhpqxi8995 [place] [address]Dr. Chrissy Frazier Glucose [Mass/Vol] 149 mg/dL Critically high 74-106 [facility] Comment on above: Performed By: #### L IPA, TERRENCE, CMP, MG ####[facility] Qhjbffydsf6856 [place] [address]Dr. Chrissy Frazier Potassium [Moles/Vol] 3.7 mmol/L Normal 3.5-5.1 [facility] Comment on above: Performed By: #### L IPA, TERRENCE, CMP, MG ####[facility] Mofjgwfdkr6660 [place] [address]Dr. Chrissy Frazier Protein [Mass/Vol] 8.3 g/dL Critically high 6.4-8.2 [facility] Comment on above: Performed By: #### L IPA, TERRENCE, CMP, MG ####[facility] Zfvkvkaxes9156 [place] [address]Dr. Chrissy Frazier Sodium [Moles/Vol] 140 mmol/L Normal 136-145 [facility] Comment on above: Performed By: #### L IPA, TERRENCE, CMP, MG ####[facility] Ycualdmqrl2511 [place] [address]Dr. Chrissy Frazier Urea nitrogen [Mass/Vol] 16.0 mg/dL Normal 7.0-18.0 [facility] Comment on above: Performed By: #### L IPA, TERRENCE, CMP, MG ####[facility] Mqkmcazstw8593 [place] [address]Dr. Chrissy Frazier Urea nitrogen/Creatinine [Mass ratio] 11.3 mg/mg Normal [facility] Comment on above: Performed By: #### L IPA, TERRENCE, CMP, MG ####[facility] Brwjvzpjlz8444 [place] [address]Dr. Chrissy Frazier SED RATE [facility] 2022 SED RATE 37 mm/hr Critically high <=15 [facility] Comment on above: Performed By: #### S EDR ####[facility] Rewgwjmtlg25[address] [place], [place] [address]Wd. Chrissy Frazier XR ABD FLAT UP_PA Enoch 01-03 XR ABD FLAT UP_PA CH Normal [facility] CT HEART CORONARY ANGIOGRAMo n 12-13-2022 [...] CT examination Electronically signed: Maikel Chappell. Normal [facility] Office Visiton 11-24-2022 Follow-up visit [id number] Paulina Montero 1990 M Date Provider Department Center 11/24/2022 3848-RAQUEL BANKS MANE [facility] Family History Problem Relation Age of Onset Coronary artery disease Father Heart attack Father 54 Family Status - Relation Status Age at Father Level of Service:54902 [place] OFFICE/OUTPATIENT NEW MODERATE MDM 45-59 MINUTES Reason for Visit and Comments: abnormal stress test [Other] Normal [facility] CARDIAC STRESS TESTon 2021 CARDIAC STRESS TEST Normal [facility] AMYLASEon 10-24-2022 Amylase [Catalytic activity/Vol] 26 U/L Normal 25-115 [facility] Comment on above: Performed By: #### C MP, LIPA, TERRENCE ####[facility] Yekpcinlva6025 [place], [place] [address]WsNancy Chrissy Frazier CBC AUTO DIFFon 10-24-2022 BASO # 0.0 103/ul Normal 0.0-0.1 [facility] Comment on above: Performed By: #### C BC ####[facility] Dyyjyqxhcb0861 [place] [id number]. Chrissy Frazier Basophils/100 WBC (Bld) 0.2 % Normal 0.2-2.0 [facility] Comment on above: Performed By: #### C BC ####[facility] Fyshsmcvjk1267 [place] [id number]. Chrissy Frazier EO # 0.1 103/ul Normal 0.0-0.7 [facility] Comment on above: Performed By: #### C BC ####[facility] Prfnjgvvky[address] [place], [place] [address]Dr. Chrissy Frazier Eosinophils/100 WBC (Bld) 0.4 % Critically low 0.9-7.0 [facility] Comment on above: Performed By: #### C BC ####[facility] Cedebrwqih[address] [place], [place] [address]Dr. Chrissy Frazier Erythrocyte distribution width (RBC) [Ratio] 14.6 % Normal 11.0-15.0 [facility] Comment on above: Performed By: #### C BC ####[facility] Arawfantta0290 [place] [address]Dr. Chrissy Frazier Hematocrit (Bld) [Volume fraction] 39.4 % Critically low 42.0-54.0 [facility] Comment on above: Performed By: #### C BC ####[facility] Hvagjpiwnb5264 [place] [phone]. Chrissy Frazier Hemoglobin (Bld) [Mass/Vol] 13.2 g/dL Critically low 14.0-18.0 [facility] Comment on above: Performed By: #### C BC ####[facility] Utboqowrpc8081 [place] [address]Dr. Chrissy Frazier IG # 0.07 10e3/ul Critically high 0.00-0.03 [facility] Comment on above: Performed By: #### C BC ####[facility] Vzmfybdmdi06[address] [place], [place] [address]Dr. Chrissy Frazier IG % 0.5 % Normal 0.0-0.5 [facility] Comment on above: Performed By: #### C BC ####[facility] Ypitbscasw1229 [place] [id number]. Chrissy Frazier LYMPH # 3.7 103/ul Normal 1.2-3.8 [facility] Comment on above: Performed By: #### C BC ####[facility] Nexgntmrhi7742 [place], [place] [address]Hw. Chrissy Freddie Lymphocytes/100 WBC (Bld) 27.0 % Normal 20.5-60.0 [facility] Comment on above: Performed By: #### C BC ####[facility] Tltyujaqoh8941 [place] [id number]. Tishrowan Frazier MANUAL DIFF REQ NO Normal [facility] Comment on above: Performed By: #### C BC ####[facility] Ldqqureknj7624 [place] [phone]. Chrissy Freddie MCH (RBC) [Entitic mass] 27.8 pg Normal 25.9-34.0 [facility] Comment on above: Performed By: #### C BC ####[facility] Pvlhqnziqk1261 [place] [phone]. Chrissy Frazier MCHC (RBC) [Mass/Vol] 33.5 g/dL Normal 29.9-35.2 [facility] Comment on above: Performed By: #### C BC ####[facility] Idagptmcgx2589 [place] [phone]. Chrissy Frazier MCV (RBC) [Entitic vol] 82.9 fL Normal 80.0-94.0 [facility] Comment on above: Performed By: #### C BC ####[facility] Bhszfqxlfq2666 [place] [phone]. Chrissy Freddie MONO # 1.2 103/ul Critically high 0.3-0.8 [facility] Comment on above: Performed By: #### C BC ####[facility] Bfjscmogdj5503 [place] [address]Dr. Tishrowan Frazier Monocytes/100 WBC (Bld) 8.4 % Normal 1.7-12.0 [facility] Comment on above: Performed By: #### C BC ####[facility] Ldcecfsiyq0307 [place] [address]Dr. Chrissy Frazier NEUT # 8.8 103/ul Critically high 1.4-6.5 [facility] Comment on above: Performed By: #### C BC ####[facility] Uimrnxtlsk3836 [place] [phone]. Chrissy Frazier Neutrophils/100 WBC (Bld) 63.5 % Normal 43.0-75.0 [facility] Comment on above: Performed By: #### C BC ####[facility] Ibtfwaczzq4349 [place] [phone]. Tishrowan Frazier Platelet mean volume (Bld) [Entitic vol] 10.7 fL Normal 9.5-13.5 [facility] Comment on above: Performed By: #### C BC ####[facility] Tjjieivvtl2167 [place] [phone]. Chrissy Frazier PLT 291 103/ul Normal 150-450 [facility] Comment on above: Performed By: #### C BC ####[facility] Tinokblitv[address] [place], [place] [address]Dr. Chrissy Frazier RBC 4.75 106/ul Normal 4.70-6.10 [facility] Comment on above: Performed By: #### C BC ####[facility] Jtdmzfnwrv0257 [place] [phone]. Chrissy Frazier WBC 13.8 103/ul Critically high 4.0-11.0 [facility] Comment on above: Performed By: #### C BC ####[facility] Awfexfjwrw[address] [place], [place] [address]Dr. Chrissy Frazier LIPASEon 10-24-2022 Lipase [Catalytic activity/Vol] 44.0 U/L Critically low 73.0-393.0 [facility] Comment on above: Performed By: #### C MP, LIPA, TERRENCE ####[facility] Oauxmjwump6728 [place] [address]Dr. Chrissy Frazier PROF 14(COMP METB)on 022 Albumin [Mass/Vol] 3.4 g/dL Normal 3.4-5.0 [facility] Comment on above: Performed By: #### C OSWALD ADAIR, TERRENCE ####[facility] Nwuwtapmha0732 [place] [address]Dr. Chrissy Frazier Albumin/Globulin [Mass ratio] 0.9 {ratio} Normal [facility] Comment on above: Performed By: #### C TESSA ADAIRA, TERRENCE ####[facility] Dihikwxrfw98[address] [place], [place] [address]Dr. Tishrowan Frazier ALP [Catalytic activity/Vol] 67 U/L Normal 46-116 [facility] Comment on above: Performed By: #### C OSWALD ADAIR, TERRENCE ####[facility] Vthnpxeapa9947[address] [place], [place] [address]Dr. Chrissy Frazier ALT [Catalytic activity/Vol] 25 U/L Normal 16-63 [facility] Comment on above: Performed By: #### C OSWALD ADAIR, TERRENCE ####[facility] Sdlwsnyiqk47[address] [place], [place] [address]Dr. Chrissy Frazier Anion gap [Moles/Vol] 14.5 mmol/L Normal [facility] Comment on above: Performed By: #### C OSWALD ADAIR, TERRENCE ####[facility] Chdwgckpkl8556[address] [place], [place] [address]Dr. Chrissy Frazier AST [Catalytic activity/Vol] 17 U/L Normal 15-37 [facility] Comment on above: Performed By: #### C OSWALD ADAIR, TERRENCE ####[facility] Pjcrlmamki8325[address] [place], [place] [address]Dr. Chrissy Frazier Bilirubin [Mass/Vol] 0.5 mg/dL Normal 0.2-1.0 [facility] Comment on above: Performed By: #### C OSWALD ADAIR, TERRENCE ####[facility] Lowdoxlfgx33[address] [place], [place] [address]Dr. Chrissy Frazier Calcium [Mass/Vol] 8.6 mg/dL Normal 8.5-10.1 [facility] Comment on above: Performed By: #### C TESSA ADAIRA, TERRENCE ####[facility] Ovkackeqef4255 [place] [address]Dr. Chrissy Frazier Chloride [Moles/Vol] 106 mmol/L Normal 98-107 [facility] Comment on above: Performed By: #### C OSWALD ADAIR, TERRENCE ####[facility] Nssaljpcvr8128 [place] [address]Dr. Chrissy Frazier CO2 [Moles/Vol] 22.8 mmol/L Normal 21.0-32.0 [facility] Comment on above: Performed By: #### C OSWALD ADAIR, TERRENCE ####[facility] Oepqjsdmnk2930 [place] [address]Dr. Chrissy Frazier Creatinine [Mass/Vol] 0.98 mg/dL Normal 0.70-1.30 [facility] Comment on above: Performed By: #### C OSWALD ADAIR, TERRENCE ####[facility] Ekseyyetrg[address] [place], [place] [address]Dr. Chrissy Frazier EGFR-AF ALBANIAN >60 Normal >=60 [facility] Comment on above: Performed By: #### C OSWALD ADAIR, TERRENCE ####[facility] Xyzwmrztuq65[address] [place], [place] [address]Dr. Chrissy Frazier EGFR-NON AF ALBANIAN >60 Normal >=60 [facility] Comment on above: Performed By: #### C OSWALD ADAIR, TERRENCE ####[facility] Hclssozhlx5033 [place] [address]Dr. Chrissy Frazier Globulin (S) [Mass/Vol] 3.7 g/dL Normal [facility] Comment on above: Performed By: #### C OSWALD ADAIR, TERRENCE ####[facility] Trtzosxtmr5166 [place] [address]Dr. Chrissy Frazier Glucose [Mass/Vol] 115 mg/dL Critically high 74-106 [facility] Comment on above: Performed By: #### C OSWALD ADAIR, TERRENCE ####[facility] Fdtctjfrze094[address] [place], [place] [address]Dr. Chrissy Frazier Potassium [Moles/Vol] 3.3 mmol/L Critically low 3.5-5.1 [facility] Comment on above: Performed By: #### C MP, LIPA, TERRENCE ####[facility] Mdzjlgekhf2019[address] [place], [place] [address]Dr. Chrissy Frazier Protein [Mass/Vol] 7.1 g/dL Normal 6.4-8.2 [facility] Comment on above: Performed By: #### C MP, LIPA, TERRENCE ####[facility] Mnrjjlcsla529[address] [place], [place] [address]Dr. Chrissy Frazier Sodium [Moles/Vol] 140 mmol/L Normal 136-145 [facility] Comment on above: Performed By: #### C MP, LIPA, TERRENCE ####[facility] Gxbimfkxjz1360[address] [place], [place] [address]Dr. Chrissy Frazier Urea nitrogen [Mass/Vol] 10.0 mg/dL Normal 7.0-18.0 [facility] Comment on above: Performed By: #### C MP, LIPA, TERRENCE ####[facility] Bwxirlxkce7938[address] [place], [place] [address]Dr. Chrissy Frazier Urea nitrogen/Creatinine [Mass ratio] 10.2 mg/mg Normal [facility] Comment on above: Performed By: #### C MP, LIPA, TERRENCE ####[facility] Odnvfxzstr15[address] [place], [place] [address]Dr. Chrissy Frazier AMYLASEon 10-23-2022 Amylase [Catalytic activity/Vol] 31 U/L Normal 25-115 [facility] Comment on above: Performed By: #### C MP, LIPA, TERRENCE ####[facility] Wrgkocuhyy[address] [place], [place] [address]Dr. Chrissy Frazier CBC AUTO DIFFon 10-23-2022 BASO # 0.1 103/ul Normal 0.0-0.1 [facility] Comment on above: Performed By: #### C BC ####[facility] Yxafqhtckt[address] [place], [place] [address]Dr. Chrissy Frazier Basophils/100 WBC (Bld) 0.3 % Normal 0.2-2.0 [facility] Comment on above: Performed By: #### C BC ####[facility] Dyjgpfrprs5973 [place] [address]Dr. Chrissy Frazier EO # 0.1 103/ul Normal 0.0-0.7 [facility] Comment on above: Performed By: #### C BC ####[facility] Xlvmbvvdal4869 [place] [address]Dr. Chrissy Frazier Eosinophils/100 WBC (Bld) 0.3 % Critically low 0.9-7.0 [facility] Comment on above: Performed By: #### C BC ####[facility] Tjutqcbbox[address] [place], [place] [address]Dr. Chrissy Frazier Erythrocyte distribution width (RBC) [Ratio] 14.5 % Normal 11.0-15.0 [facility] Comment on above: Performed By: #### C BC ####[facility] Exkphndjng86[address] [place], [place] [address]Dr. Chrissy Frazier Hematocrit (Bld) [Volume fraction] 44.0 % Normal 42.0-54.0 [facility] Comment on above: Performed By: #### C BC ####[facility] Kkrmkvuvwr[address] [place], [place] [address]Dr. Chrissy Frazier Hemoglobin (Bld) [Mass/Vol] 14.8 g/dL Normal 14.0-18.0 [facility] Comment on above: Performed By: #### C BC ####[facility] Abetgtqptl8952 [place] [address]Dr. Chrissy Frazier IG # 0.09 10e3/ul Critically high 0.00-0.03 The [facility] Comment on above: Performed By: #### C BC ####[facility] Rrjwgfqsda5494 [place] [address]Dr. Chrissy Frazier IG % 0.5 % Normal 0.0-0.5 [facility] Comment on above: Performed By: #### C BC ####[facility] [address]peyfmywnp[address] [place], [place] [address]Dr. Chrissy Frazier LYMPH # 3.6 103/ul Normal 1.2-3.8 [facility] Comment on above: Performed By: #### C BC ####[facility] Rtkhjgwcyz4186 [place] [id number]. Chrissy Freddie Lymphocytes/100 WBC (Bld) 19.4 % Critically low 20.5-60.0 [facility] Comment on above: Performed By: #### C BC ####[facility] Iuofyqyzim5787 [place] [id number]. Tishrowan Frazier MANUAL DIFF REQ NO Normal [facility] Comment on above: Performed By: #### C BC ####[facility] Kzbsfcscqi7563 [place] [id number]. Chrissy Freddie MCH (RBC) [Entitic mass] 28.1 pg Normal 25.9-34.0 [facility] Comment on above: Performed By: #### C BC ####[facility] Hzammcaiwb9575 [place] [id number]. Chrissy Freddie MCHC (RBC) [Mass/Vol] 33.6 g/dL Normal 29.9-35.2 [facility] Comment on above: Performed By: #### C BC ####[facility] Neenizprfw4247 [place] [id number]. Chrissy Freddie MCV (RBC) [Entitic vol] 83.5 fL Normal 80.0-94.0 [facility] Comment on above: Performed By: #### C BC ####[facility] Lrzmfxbtci5244 [place] [id number]. Chrissy Frazier MONO # 0.9 103/ul Critically high 0.3-0.8 [facility] Comment on above: Performed By: #### C BC ####[facility] Hnruxzdyqx4[address] [place] [id number]. Tishrwoan Frazier Monocytes/100 WBC (Bld) 4.9 % Normal 1.7-12.0 The [facility] Comment on above: Performed By: #### C BC ####[facility] Fhovrvkdwx69[address] [place] [phone]. Chrissy Frazier NEUT # 13.9 103/ul Critically high 1.4-6.5 The [facility] Comment on above: Performed By: #### C BC ####[facility] Ncwbkcwebm2775 [place] [phone]. Chrissy Frazier Neutrophils/100 WBC (Bld) 74.6 % Normal 43.0-75.0 The [facility] Comment on above: Performed By: #### C BC ####[facility] Aqjvmhiska4945 [place] [phone]. Chrissy Frazier Platelet mean volume (Bld) [Entitic vol] 10.5 fL Normal 9.5-13.5 The [facility] Comment on above: Performed By: #### C BC ####[facility] Wxavwvfxhb38[address] [place] [phone]. Chrissy Frazier PLT 402 103/ul Normal 150-450 The [facility] Comment on above: Performed By: #### C BC ####[facility] Gtbtirvgda8841 [place] [phone]. Chrissy Frazier RBC 5.27 106/ul Normal 4.70-6.10 The [facility] Comment on above: Performed By: #### C BC ####[facility] Zrcblzecyi8978 [place] [phone]. Chrissy Frazier WBC 18.6 103/ul Critically high 4.0-11.0 The [facility] Comment on above: Performed By: #### C BC ####[facility] Oigihzaxot5[address] [place] [phone]. Chrissy Frazier CULTURE BLOODon 10-23-2022 Microscopic examination of blood, culture Culture Observations: NO GROWTH AT 5 DAYS. Normal [facility] Comment on above: Performed By: #### B LDCX2 ####[facility] Prceicbnqs15[address] [place] [phone]. Chrissy Frazier Microscopic examination of blood, culture Culture Observations: NO GROWTH AT 5 DAYS. Normal [facility] Comment on above: Performed By: #### B LDCX1 ####[facility] Ijbjhddxch6613 [place] [phone]. Chrissy Frazier CULTURE URINEon 10-23-2022 CULTURE URINE Culture Observations: NO GROWTH. Normal [facility] Comment on above: Performed By: #### U RCX ####[facility] Yevzhsyyht13[address] [place] [address]Dr. Chrissy Frazier Covid-19 PCR (CVDTB)on SARS-CoV-2 (COVID-19) RNA RHIANNON+probe Ql (Unsp spec) Not detected Normal NOT DETECTED The [facility] Comment on above: Result Comment: When [...] for this test is supported by the [employer]'s declaration that [...] be used). Performed By: #### C VDTBH ####[facility] Dbgnzynabr[address] [place], [place] [address]Dr. Crhissy Frazier INFLUENZA A AND B AGon 10-23 INFLUANEGH SEE BELOW Normal The [facility] Comment on above: Result Comment: Nega tive for Flu A protein angiten. Infection due to Flu A cannot be ruled out. Flu A angiten in the sample may be below the detection limit of the test. Performed By: #### I NFLUAB ####[facility] Tcilaxbyqx6[address] [place], [place] [address]Dr. Chrissy Frazier INFLUBNEGH SEE BELOW Normal The [facility] Comment on above: Result Comment: Nega tive for Flu B protein antigen. Infection due to Flu B cannot be ruled out. Flu B antigen in the sample may be below the detection limit of the test. Performed By: #### I NFLUAB ####[facility] G[address]ozkz[address]av[address] [place], [place] [address]Dr. Chrissy Frazier INFLUENZA A AG Negative Normal NEGATIVE SEE COMMENT The [facility] Comment on above: Performed By: #### I NFLUAB ####[facility] Afjkyuvjem87[address] [place] [address]Dr. Chrissy Frazier INFLUENZA B AG Negative Normal NEGATIVE SEE COMMENT The [facility] Comment on above: Performed By: #### I NFLUAB ####[facility] Uofjvdioqz05[address] [place], [place] [address]Dr. Chrissy Frazier INTERNAL CONTROLS Within Normal Limits Normal Wi thin Normal Limits The [facility] Comment on above: Performed By: #### I NFLUAB ####[facility] Safwezmlqd7279[address] [place], [place] [address]Dr. Chrissy Frazier LACTATE/LACTIC ACIDon 2021 Lactate [Moles/Vol] 2.1 mmol/L Critically high 0.4-1.9 [facility] Comment on above: Performed By: #### L ACT ####[facility] Ifavdeqily7056[address] [place], [place] [address]Dr. Chrissy Frazier Lactate [Moles/Vol] 6.9 mmol/L Critically high 0.4-1.9 [facility] Comment on above: Performed By: #### L ACT ####[facility] Kukverdtne9[address] [place], [place] [address]Dr. Chrissy Freddie LIPASEon 10-23-2022 Lipase [Catalytic activity/Vol] 72.0 U/L Critically low 73.0-393.0 [facility] Comment on above: Performed By: #### C OSWALD ADAIR AMY ####[facility] Uhruugruvm6[address] [place], [place] [address]Dr. Chrissy Frazier PROF 14(COMP METB)on 022 Albumin [Mass/Vol] 3.9 g/dL Normal 3.4-5.0 The [facility] Comment on above: Performed By: #### C OSWALD ADAIR AMY ####[facility] Jaehvafwhf[address] [place], [place] [address]Dr. Chrissy Freddie Albumin/Globulin [Mass ratio] 0.9 {ratio} Normal The [facility] Comment on above: Performed By: #### C MP, LIPA, TERRENCE ####[facility] Dsuqkcnavy6090 [place] [address]Dr. Chrissy Frazier ALP [Catalytic activity/Vol] 82 U/L Normal 46-116 [facility] Comment on above: Performed By: #### C MP, LIPA, TERRENCE ####[facility] Eslgvwnodh85[address] [place] [address]Dr. Chrissy Frazier ALT [Catalytic activity/Vol] 25 U/L Normal 16-63 [facility] Comment on above: Performed By: #### C MP, LIPA, TERRENCE ####[facility] Djarrxfvyk55[address] [place], [place] [address]Dr. Chrissy Frazier Anion gap [Moles/Vol] 18.1 mmol/L Normal [facility] Comment on above: Performed By: #### C MP, LIPA, TERRENCE ####[facility] Alyicwczcj[address] [place], [place] [address]Dr. Chrissy Frazier AST [Catalytic activity/Vol] 17 U/L Normal 15-37 [facility] Comment on above: Performed By: #### C MP, LIPA, TERRENCE ####[facility] Dcnsgqtoke79[address] [place], [place] [address]Dr. Chrissy Frazier Bilirubin [Mass/Vol] 0.5 mg/dL Normal 0.2-1.0 [facility] Comment on above: Performed By: #### C MP, LIPA, TERRENCE ####[facility] Bdxoqdiows72[address] [place], [place] [address]Dr. Chrissy Frazier Calcium [Mass/Vol] 9.1 mg/dL Normal 8.5-10.1 [facility] Comment on above: Performed By: #### C MP, LIPA, TERRENCE ####[facility] Yyvvrtnrjj9[address] [place], [place] [address]Dr. Chrissy Frazier Chloride [Moles/Vol] 101 mmol/L Normal 98-107 [facility] Comment on above: Performed By: #### C MP, LIPA, TERRENCE ####[facility] Wjnuqumbbw4[address] [place], [place] [address]Dr. Chrissy Frazier CO2 [Moles/Vol] 19.2 mmol/L Critically low 21.0-32.0 [facility] Comment on above: Performed By: #### C OSWALD ADAIR TERRENCE ####[facility] Fxnqsrfpuu3974 [place] [address]Dr. Chrissy Frazier Creatinine [Mass/Vol] 1.72 mg/dL Critically high 0.70-1.30 [facility] Comment on above: Performed By: #### C OSWALD ADAIR, TERRENCE ####[facility] Dbcdusvdjf9462 [place] [address]Dr. Chrissy Frazier EGFR-AF ALBANIAN 56 mL/min/1.73m2 Critically low >=60 [facility] Comment on above: Performed By: #### C OSWALD ADAIR, TERRENCE ####[facility] Yvgyeisxff8990 [place] [address]Dr. Chrissy Frazier EGFR-NON AF ALBANIAN 46 mL/min/1.73m2 Critically low >=60 [facility] Comment on above: Performed By: #### C OSWALD ADAIR, TERRENCE ####[facility] Ktsgzfsjko[address] [place], [place] [address]Dr. Chrissy Frazier Globulin (S) [Mass/Vol] 4.2 g/dL Normal [facility] Comment on above: Performed By: #### C OSWALD ADAIR, TERRENCE ####[facility] Mzrzbbzmay9084 [place] [address]Dr. Chirssy Frazier Glucose [Mass/Vol] 126 mg/dL Critically high 74-106 [facility] Comment on above: Performed By: #### C OSWALD ADAIR, TERRENCE ####[facility] Ltyrtwmsqr0621 [place] [address]Dr. Chrissy Frazier Potassium [Moles/Vol] 3.3 mmol/L Critically low 3.5-5.1 [facility] Comment on above: Performed By: #### C TESSA ADAIRA, TERRENCE ####[facility] Rdlufbukmo3200 [place] [address]Dr. Chrissy Frazier Protein [Mass/Vol] 8.1 g/dL Normal 6.4-8.2 [facility] Comment on above: Performed By: #### C OSWALD ADAIR, TERRENCE ####[facility] Nkzeeomtzc7198 [place] [address]Dr. Chrissy Frazier Sodium [Moles/Vol] 135 mmol/L Critically low 136-145 Th e [facility] Comment on above: Performed By: #### C TESSA ADAIRA, TERRENCE ####[facility] Lckedfhglv3249 [place] [address]Dr. Chrissy Frazier Urea nitrogen [Mass/Vol] 13.0 mg/dL Normal 7.0-18.0 [facility] Comment on above: Performed By: #### C OSWALD ADAIR, TERRENCE ####[facility] Mrvfasjzmv07[address] [place], [place] [address]Dr. Chrissy Frazier Urea nitrogen/Creatinine [Mass ratio] 7.6 mg/mg Normal The [facility] Comment on above: Performed By: #### C OSWALD ADAIR, TERRENCE ####[facility] Bqxgelccey09[address] [place], [place] [address]Dr. Chrissy Frazier UA RANDOM W/MICROSCOPICon BACTERIA NONE SEEN Normal NONE SEEN [facility] Comment on above: Performed By: #### U AMIC ####[facility] Ptdmfcybll[address] [place], [place] [address]Dr. Chrissy Frazier Bilirubin Ql (U) Negative Normal NEGATIVE The [facility] Comment on above: Performed By: #### U AMIC ####[facility] Yletljabrg5[address] [place], [place] [address]Dr. Chrissy Frazier CAST NONE SEEN Normal NONE SEEN The [facility] Comment on above: Performed By: #### U AMIC ####[facility] Egjgxpjcly9[address] [place], [place] [address]Dr. Chrissy Frazier Clarity (U) CLEAR Normal CLEAR The [facility] Comment on above: Performed By: #### U AMIC ####[facility] Yiavqkfqkq9931 [place] [address]Dr. Chrissy Frazier Color (U) LT. YELLOW Normal YELLOW The [facility] Comment on above: Performed By: #### U AMIC ####[facility] Rrxfaxtrty[address] [place] [address]Dr. Chrissy Frazier Crystals LM Nom (Urine sed) NONE SEEN Normal NONE SEEN The [facility] Comment on above: Performed By: #### U AMIC ####[facility] Djcrtszejz9922[address] [place], [place] [address]Dr. Chrissy Frazier Epithelial cells LM Ql (Urine sed) FEW Abnormal NONE SEEN /RARE The [facility] Comment on above: Performed By: #### U AMIC ####[facility] Gdjeuftefq[address]67[address] [place], [place] [address]Dr. Chrissy Frazier Glucose Ql (U) Negative Normal NEGATIVE The [facility] Comment on above: Performed By: #### U AMIC ####[facility] Zusehxewag[address] [place], [place] [address]Dr. Chrissy Frazier Hemoglobin Ql (U) Negative Normal NEGATIVE The [facility] Comment on above: Performed By: #### U AMIC ####[facility] Cnnrmyvsat9[address] [place], [place] [address]Dr. Chrissy Frazier Ketones Ql (U) 15 mg/dl Abnormal NEGATIVE The [facility] Comment on above: Performed By: #### U AMIC ####[facility] Lqrkixfjtq8092[address] [place], [place] [address]Dr. Chrissy Frazier LEUKOCYTES Negative Normal NEGATIVE The [facility] Comment on above: Performed By: #### U AMIC ####[facility] Bygfcqagso5175[address] [place], [place] [address]Dr. Chrissy Frazier MUCOUS NONE SEEN Normal NONE SEEN The [facility] Comment on above: Performed By: #### U AMIC ####[facility] Rkolljzuwb5[address] [place], [place] [address]Dr. Chrissy Frazier Nitrite Ql (U) Negative Normal NEGATIVE The [facility] Comment on above: Performed By: #### U AMIC ####[facility] Spqpmwmmil995[address] [place], [place] [address]Dr. Chrissy Frazier pH (U) 6.0 [pH] Normal 5-9 The [facility] Comment on above: Performed By: #### U AMIC ####[facility] Ciyheiwpoh4890[address] [place], [place] [address]Dr. Chrissy Frazier RBC 0-2 Normal 0-2 The [facility] Comment on above: Performed By: #### U AMIC ####[facility] Ogrllbzvdm8344 [place] [address]Dr. Chrissy Frazier SPEC GRAVITY 1.010 Normal 1.005-<=1.025 [facility] Comment on above: Performed By: #### U AMIC ####[facility] Ehtiihxmup4721 [place] [address]Dr. Chrissy Freddie UA PROTEIN Negative Normal NEGATIVE/ TRACE [facility] Comment on above: Performed By: #### U AMIC ####[facility] Concjxsisk7807 [place] [address]Dr. Chrissy Freddie Urobilinogen Qn (U) 0.2 {Estrellita'U}/dL Normal 0.2 - 1. 0 The [facility] Comment on above: Performed By: #### U AMIC ####[facility] Mxqkbqahei[address] [place], [place] [address]Dr. Chrissy Freddie WBC NONE SEEN Normal NONE SEEN The [facility] Comment on above: Performed By: #### U AMIC ####[facility] Tydsqnpjwj[address]30[address] [place], [place] [address]Dr. Chrissy Freddie AMYLASEon 10-22-2022 Amylase [Catalytic activity/Vol] 28 U/L Normal 25-115 The [facility] Comment on above: Performed By: #### L IPA, CMP, TERRENCE ####[facility] Wlpqhmaedz2746[address] [place], [place] [address]Dr. Chrissy Freddie CBC AUTO DIFFon 10-22-2022 BASO # 0.0 103/ul Normal 0.0-0.1 The [facility] Comment on above: Performed By: #### C BC ####[facility] Eimzcwhwfe[address]24[address] [place], [place] [address]Dr. Tishrowan Frazier Basophils/100 WBC (Bld) 0.2 % Normal 0.2-2.0 The [facility] Comment on above: Performed By: #### C BC ####[facility] Gutljqtrwk4035[address] [place], [place] [address]Dr. Chrissy Frazier EO # 0.0 103/ul Normal 0.0-0.7 The [facility] Comment on above: Performed By: #### C BC ####[facility] Pkhahyzeoq7916 [place] [address]Dr. Chrissy Frazier Eosinophils/100 WBC (Bld) 0.1 % Critically low 0.9-7.0 The [facility] Comment on above: Performed By: #### C BC ####[facility] Dqmeekdlvp6073 [place] [address]Dr. Chrissy Frazier Erythrocyte distribution width (RBC) [Ratio] 14.4 % Normal 11.0-15.0 The [facility] Comment on above: Performed By: #### C BC ####[facility] Axyfjdowoo6[address] [place], [place] [address]Dr. Chrissy Frazier Hematocrit (Bld) [Volume fraction] 45.2 % Normal 42.0-54.0 The [facility] Comment on above: Performed By: #### C BC ####[facility] Xzhcecicmo3118[address] [place], [place] [address]Dr. Chrissy Frazier Hemoglobin (Bld) [Mass/Vol] 15.4 g/dL Normal 14.0-18.0 The [facility] Comment on above: Performed By: #### C BC ####[facility] Cslsjvkdep[address] [place], [place] [address]Dr. Chrissy Frazier IG # 0.07 10e3/ul Critically high 0.00-0.03 [facility] Comment on above: Performed By: #### C BC ####[facility] Bgrhejwpqq8621 [place] [address]Dr. Chrissy Frazier IG % 0.4 % Normal 0.0-0.5 The [facility] Comment on above: Performed By: #### C BC ####[facility] Kualwllkun7960[address] [place], [place] [address]Dr. Chrissy Frazier LYMPH # 2.0 103/ul Normal 1.2-3.8 The [facility] Comment on above: Performed By: #### C BC ####[facility] Cbuawrwxve1824[address] [place], [place] [address]Dr. Chrissy Frazier Lymphocytes/100 WBC (Bld) 12.2 % Critically low 20.5-60.0 The [facility] Comment on above: Performed By: #### C BC ####[facility] Palrdtwlmi5440 [place] [address]DrNancy Frazier MANUAL DIFF REQ NO Normal [facility] Comment on above: Performed By: #### C BC ####[facility] Fowbrfqfvm1148 [place] [address]Dr. Chrissy Frazier MCH (RBC) [Entitic mass] 28.3 pg Normal 25.9-34.0 The [facility] Comment on above: Performed By: #### C BC ####[facility] [address]ifzjufsy[address] [place], [place] [address]Dr. Chrissy Frazier MCHC (RBC) [Mass/Vol] 34.1 g/dL Normal 29.9-35.2 The [facility] Comment on above: Performed By: #### C BC ####[facility] Rqehcdunkc[address] [place], [place] [address]Dr. Chrissy Frazier MCV (RBC) [Entitic vol] 82.9 fL Normal 80.0-94.0 The [facility] Comment on above: Performed By: #### C BC ####[facility] Ndrpnqhfvl8815[address] [place], [place] [address]Dr. Chrissy Frazier MONO # 0.3 103/ul Normal 0.3-0.8 The [facility] Comment on above: Performed By: #### C BC ####[facility] Gczuhrcklx6364[address] [place], [place] [address]Dr. Chrissy Frazier Monocytes/100 WBC (Bld) 2.0 % Normal 1.7-12.0 The [facility] Comment on above: Performed By: #### C BC ####[facility] Kdzdybqtbv[address] [place], [place] [address]DrNancy Frazier NEUT # 14.0 103/ul Critically high 1.4-6.5 [facility] Comment on above: Performed By: #### C BC ####[facility] Kbedmyilli6980[address] [place], [place] [address]Dr. Chrissy Frazier Neutrophils/100 WBC (Bld) 85.1 % Critically high 43.0-75.0 The [facility] Comment on above: Performed By: #### C BC ####[facility] Obxmsyuyes5[address] [place] [address]Dr. Chrissy Frazier Platelet mean volume (Bld) [Entitic vol] 10.6 fL Normal 9.5-13.5 The [facility] Comment on above: Performed By: #### C BC ####[facility] Ptujthznwn5547 [place] [address]Dr. Chrissy Frazier PLT 411 103/ul Normal 150-450 The [facility] Comment on above: Performed By: #### C BC ####[facility] Iqdukycynx6214 [place] [address]Dr. Tishrowan Frazier RBC 5.45 106/ul Normal 4.70-6.10 The [facility] Comment on above: Performed By: #### C BC ####[facility] Ezsqsiazcr[address] [place], [place] [address]Dr. Chrissy Frazier WBC 16.5 103/ul Critically high 4.0-11.0 [facility] Comment on above: Performed By: #### C BC ####[facility] Hqojoiblhu[address] [place], [place] [address]Dr. Chrissy Freddie LIPASEon 10-22-2022 Lipase [Catalytic activity/Vol] 57.0 U/L Critically low 73.0-393.0 [facility] Comment on above: Performed By: #### L JULIEN CMP, TERRENCE ####[facility] Wztzmuaxfw9773 [place] [address]Dr. Chrissy Frazier PROF 14(COMP METB)on 022 Albumin [Mass/Vol] 4.2 g/dL Normal 3.4-5.0 [facility] Comment on above: Performed By: #### L IPA CMP, TERRENCE ####[facility] Qhjdoqyedn7455 [place] [address]Dr. Chrissy Frazier Albumin/Globulin [Mass ratio] 1.0 {ratio} Normal The [facility] Comment on above: Performed By: #### L IPA, CMP, TERRENCE ####[facility] Rhcxeylmgo8737 [place] [address]Dr. Chrissy Frazier ALP [Catalytic activity/Vol] 92 U/L Normal 46-116 [facility] Comment on above: Performed By: #### L IPA, CMP, TERRENCE ####[facility] Blohxklrui9822 [place] [address]Dr. Chrissy Frazier ALT [Catalytic activity/Vol] 26 U/L Normal 16-63 [facility] Comment on above: Performed By: #### L IPA, CMP, TERRENCE ####[facility] Bivkwszatg1085 [place] [address]Dr. Chrissy Frazier Anion gap [Moles/Vol] 19.5 mmol/L Normal [facility] Comment on above: Performed By: #### L IPA, CMP, TERRENCE ####[facility] C[address]flmfyzia19[address] [place], [place] [address]Dr. Chrissy Frazier AST [Catalytic activity/Vol] 19 U/L Normal 15-37 [facility] Comment on above: Performed By: #### L IPA, CMP, TERRENCE ####[facility] Cqwkqfaacw[address] [place], [place] [address]Dr. Chrissy Frazier Bilirubin [Mass/Vol] 0.7 mg/dL Normal 0.2-1.0 [facility] Comment on above: Performed By: #### L IPA, CMP, TERRENCE ####[facility] Scwgludgwq0065 [place] [address]Dr. Chrissy Frazier Calcium [Mass/Vol] 9.6 mg/dL Normal 8.5-10.1 [facility] Comment on above: Performed By: #### L IPA, CMP, TERRENCE ####[facility] Jxvlqoousn1257 [place] [address]Dr. Chrissy Frazier Chloride [Moles/Vol] 102 mmol/L Normal 98-107 [facility] Comment on above: Performed By: #### L IPA, CMP, TERRENCE ####[facility] Uypmajcuhg3982 [place] [address]Dr. Chrissy Frazier CO2 [Moles/Vol] 19.1 mmol/L Critically low 21.0-32.0 [facility] Comment on above: Performed By: #### L IPA CMP, TERRENCE ####[facility] Ruylseooii2918 [place] [address]Dr. Chrissy Frazier Creatinine [Mass/Vol] 1.47 mg/dL Critically high 0.70-1.30 [facility] Comment on above: Performed By: #### L IPA CMP, TERRENCE ####[facility] Nprbzvrdvu[address] [place], [place] [address]Dr. Chrissy Freddie EGFR-AF ALBANIAN >60 Normal >=60 [facility] Comment on above: Performed By: #### L IPA CMP, TERRENCE ####[facility] Lzatxspbey[address] [place], [place] [address]Dr. Tishrowan Freddie EGFR-NON AF ALB[place]IAN 56 mL/min/1.73m2 Critically low >=60 [facility] Comment on above: Performed By: #### L IPA CMP, TERRENCE ####[facility] [address]lujljxlg[address] [place], [place] [address]Dr. Chrissy Frazier Globulin (S) [Mass/Vol] 4.3 g/dL Normal [facility] Comment on above: Performed By: #### L IPA CMP, TERRENCE ####[facility] Fucrigsflc[address] [place], [place] [address]Dr. Chrissy Frazier Glucose [Mass/Vol] 189 mg/dL Critically high 74-106 [facility] Comment on above: Performed By: #### L IPA CMP, TERRENCE ####[facility] Rwktwwwjqu[address] [place], [place] [address]Dr. Chrissy Frazier Potassium [Moles/Vol] 4.6 mmol/L Normal 3.5-5.1 [facility] Comment on above: Performed By: #### L IPA CMP, TERRENCE ####[facility] Nqqteildtz[address] [place], [place] [address]Dr. Chrissy Frazier Protein [Mass/Vol] 8.5 g/dL Critically high 6.4-8.2 [facility] Comment on above: Performed By: #### L IPA CMP, TERRENCE ####[facility] Exeiplwzww[address] [place] [id number]. Chrissy Freddie Sodium [Moles/Vol] 136 mmol/L Normal 136-145 [facility] Comment on above: Performed By: #### L IPA, CMP, TERRENCE ####[facility] Fokdnirlwc4[address] [place] [address]Dr. Chrissy Freddie Urea nitrogen [Mass/Vol] 16.0 mg/dL Normal 7.0-18.0 [facility] Comment on above: Performed By: #### L IPA, CMP, TERRENCE ####[facility] Qgiyndieuw87[address] [place] [address]Dr. Tishrowan Frazier Urea nitrogen/Creatinine [Mass ratio] 10.9 mg/mg Normal [facility] Comment on above: Performed By: #### L IPA, CMP, TERRENCE ####[facility] Ajfslryysk878[address] [place], [place] [address]Dr. Tishrowan Frazier AMYLASEon 09-03-2022 Amylase [Catalytic activity/Vol] 25 U/L Normal 25-115 [facility] Comment on above: Performed By: #### L IPA, TERRENCE, CMP ####[facility] Txzrmnmltf64[address] [place], [place] [address]Dr. Chrissy Frazier CBC AUTO DIFFon 09-03-2022 BASO # 0.0 103/ul Normal 0.0-0.1 [facility] Comment on above: Performed By: #### C BC ####[facility] Uonnvdzpsh960[address] [place], [place] [address]Dr. Chrissy Frazier Basophils/100 WBC (Bld) 0.1 % Critically low 0.2-2.0 [facility] Comment on above: Performed By: #### C BC ####[facility] Shygjqhtlo2660[address] [place], [place] [address]Dr. Chrissy Frazier EO # 0.0 103/ul Normal 0.0-0.7 [facility] Comment on above: Performed By: #### C BC ####[facility] Nyraylctvt0664[address] [place], [place] [address]Dr. Chrissy Frazier Eosinophils/100 WBC (Bld) 0.1 % Critically low 0.9-7.0 [facility] Comment on above: Performed By: #### C BC ####[facility] Lhkaltnzsg24[address] [place] [address]Dr. Chrissy Frazier Erythrocyte distribution width (RBC) [Ratio] 14.0 % Normal 11.0-15.0 [facility] Comment on above: Performed By: #### C BC ####[facility] Csxfhrlxzq5714 [place] [address]Dr. Chrissy Frazier Hematocrit (Bld) [Volume fraction] 42.5 % Normal 42.0-54.0 [facility] Comment on above: Performed By: #### C BC ####[facility] Bhbutstoog904260 [address] [place], [place] [address]Dr. Chrissy Frazier Hemoglobin (Bld) [Mass/Vol] 14.1 g/dL Normal 14.0-18.0 [facility] Comment on above: Performed By: #### C BC ####[facility] Hhdmtecjsd9375[address] [place], [place] [address]Dr. Chrissy Frazier IG # 0.06 10e3/ul Critically high 0.00-0.03 [facility] Comment on above: Performed By: #### C BC ####[facility] Ercnycaqdi0706[address] [place], [place] [address]Dr. Chrissy Frazier IG % 0.4 % Normal 0.0-0.5 [facility] Comment on above: Performed By: #### C BC ####[facility] Rjgajhhlwi029[address] [place], [place] [address]Dr. Chrissy Frazier LYMPH # 2.5 103/ul Normal 1.2-3.8 [facility] Comment on above: Performed By: #### C BC ####[facility] Uihfgvfwxf4863[address] [place], [place] [address]Dr. Chrissy Frazier Lymphocytes/100 WBC (Bld) 16.3 % Critically low 20.5-60.0 [facility] Comment on above: Performed By: #### C BC ####[facility] Gouuchphcd6887[address] [place], [place] [address]Dr. Chrissy Frazier MANUAL DIFF REQ NO Normal [facility] Comment on above: Performed By: #### C BC ####[facility] Axbozcjlzv6[address] [place] [id number] Chrissy Freddie MCH (RBC) [Entitic mass] 28.1 pg Normal 25.9-34.0 [facility] Comment on above: Performed By: #### C BC ####[facility] Fllmibfpzy3880 [place] [address]Dr. Chrissy Frazier MCHC (RBC) [Mass/Vol] 33.2 g/dL Normal 29.9-35.2 [facility] Comment on above: Performed By: #### C BC ####[facility] Hoexbbaetb8117 [place] [address]DrNancy Frazier MCV (RBC) [Entitic vol] 84.8 fL Normal 80.0-94.0 [facility] Comment on above: Performed By: #### C BC ####[facility] Xocakbdmba80[address] [place], [place] [address]DrNancy Frazier MONO # 1.1 103/ul Critically high 0.3-0.8 [facility] Comment on above: Performed By: #### C BC ####[facility] Qcyxxplcfl0522[address] [place], [place] [address]DrNancy Frazier Monocytes/100 WBC (Bld) 7.4 % Normal 1.7-12.0 [facility] Comment on above: Performed By: #### C BC ####[facility] Xoucfrojay25[address] [place], [place] [address]DrNancy Frazier NEUT # 11.5 103/ul Critically high 1.4-6.5 [facility] Comment on above: Performed By: #### C BC ####[facility] Pkejgkakpc[address] [place], [place] [address]DrNancy Frazier Neutrophils/100 WBC (Bld) 75.7 % Critically high 43.0-75.0 [facility] Comment on above: Performed By: #### C BC ####[facility] Fjtgdshfms[address] [place], [place] [address]DrNancy Frazier Platelet mean volume (Bld) [Entitic vol] 10.6 fL Normal 9.5-13.5 [facility] Comment on above: Performed By: #### C BC ####[facility] Crekrxckdu7347 [place] [address]Dr. Chrissy Frazier PLT 310 103/ul Normal 150-450 [facility] Comment on above: Performed By: #### C BC ####[facility] Fsicjcqkca8974 [place] [address]Dr. Chrissy Frazier RBC 5.01 106/ul Normal 4.70-6.10 [facility] Comment on above: Performed By: #### C BC ####[facility] Abcmoetsoz1071 [place] [address]Dr. Chrissy Frazier WBC 15.2 103/ul Critically high 4.0-11.0 [facility] Comment on above: Performed By: #### C BC ####[facility] Bmwjnvaety9126[address] [place], [place] [address]Dr. Chrissy Frazier LIPASEon 09-03-2022 Lipase [Catalytic activity/Vol] 46.0 U/L Critically low 73.0-393.0 [facility] Comment on above: Performed By: #### L TERRENCE VICTORIA, CMP ####[facility] Cefloeqkyi3793[address] [place], [place] [address]Dr. Chrissy Frazier PROF 14(COMP METB)on 022 Albumin [Mass/Vol] 3.7 g/dL Normal 3.4-5.0 [facility] Comment on above: Performed By: #### L TERRENCE VICTORIA, CMP ####[facility] Yirtvnkqco9437[address] [place], [place] [address]Dr. Chrissy Frazier Albumin/Globulin [Mass ratio] 1.0 {ratio} Normal [facility] Comment on above: Performed By: #### L TERRENCE VICTORIA, CMP ####[facility] Eyzcvtcsxq2566[address] [place], [place] [address]Dr. Chrissy Frazier ALP [Catalytic activity/Vol] 65 U/L Normal 46-116 [facility] Comment on above: Performed By: #### L TERRENCE VICTORIA, CMP ####[facility] Huukbuiiws0344 [place] [address]Dr. Chrissy Frazier ALT [Catalytic activity/Vol] 42 U/L Normal 16-63 [facility] Comment on above: Performed By: #### L TERRENCE VICTORIA, CMP ####[facility] Zajdgcapyd5047 [place] [address]Dr. Chrissy Frazier Anion gap [Moles/Vol] 14.4 mmol/L Normal [facility] Comment on above: Performed By: #### L TERRENCE VICTORIA, CMP ####[facility] Vuoevxjhdc7778[address] [place], [place] [address]Dr. Chrissy Frazier AST [Catalytic activity/Vol] 16 U/L Normal 15-37 [facility] Comment on above: Performed By: #### L TERRENCE VICTORIA, CMP ####[facility] Gheqakwavr25[address] [place], [place] [address]Dr. Chrissy Frazier Bilirubin [Mass/Vol] 0.4 mg/dL Normal 0.2-1.0 [facility] Comment on above: Performed By: #### L TERRENCE VICTORIA, CMP ####[facility] Cswaacfudz15[address] [place], [place] [address]Dr. Chrissy Frazier Calcium [Mass/Vol] 8.7 mg/dL Normal 8.5-10.1 [facility] Comment on above: Performed By: #### L TERRENCE VICTORIA, CMP ####[facility] Dtdmuljjez6069[address] [place], [place] [address]Dr. Chrissy Frazier Chloride [Moles/Vol] 105 mmol/L Normal 98-107 [facility] Comment on above: Performed By: #### L TERRENCE VICTORIA, CMP ####[facility] Pvfvahjrrj6808 [place] [address]Dr. Chrissy Frazier CO2 [Moles/Vol] 22.6 mmol/L Normal 21.0-32.0 [facility] Comment on above: Performed By: #### L TERRENCE VICTORIA, CMP ####[facility] Desxxskwxq6067[address] [place], [place] [address]Dr. Chrissy Frazier Creatinine [Mass/Vol] 1.11 mg/dL Normal 0.70-1.30 [facility] Comment on above: Performed By: #### L IPA TERRENCE, CMP ####[facility] Qfxcemhtde7462 [place] [id number]. Chrissy Frazier EGFR-AF ALBANIAN >60 Normal >=60 [facility] Comment on above: Performed By: #### L IPA TERRENCE, CMP ####[facility] Twmoktulzb7362 [place] [id number]. Chrissy Frazier EGFR-NON AF ALBANIAN >60 Normal >=60 [facility] Comment on above: Performed By: #### L IPA TERRENCE, CMP ####[facility] Ddklqsbaus3909 [place] [address]Dr. Chrissy Frazier Globulin (S) [Mass/Vol] 3.7 g/dL Normal [facility] Comment on above: Performed By: #### L JULIEN TERRENCE, CMP ####[facility] Vgavpuwdso7124 [place] [address]Dr. Chrissy Frazier Glucose [Mass/Vol] 121 mg/dL Critically high 74-106 [facility] Comment on above: Performed By: #### L JULIEN TERRENCE, CMP ####[facility] Ggshuovwum38[address] [place] [address]Dr. Chrissy Frazier Potassium [Moles/Vol] 4.0 mmol/L Normal 3.5-5.1 [facility] Comment on above: Performed By: #### L JULIEN TERRENCE, CMP ####[facility] Rchfojbpdy7046 [place] [address]Dr. Chrissy Frazier Protein [Mass/Vol] 7.4 g/dL Normal 6.4-8.2 [facility] Comment on above: Performed By: #### L JULIEN TERRENCE, CMP ####[facility] Aehrgepukk98[address] [place] [address]Dr. Chrissy Frazier Sodium [Moles/Vol] 138 mmol/L Normal 136-145 [facility] Comment on above: Performed By: #### L IPA TERRENCE, CMP ####[facility] Fdnntnnvke9974 [place] [address]Dr. Chrissy Frazier Urea nitrogen [Mass/Vol] 6.0 mg/dL Critically low 7.0-18.0 [facility] Comment on above: Performed By: #### L IPA, TERRENCE, CMP ####[facility] Qymyftgufm9314[address] [place], [place] [address]Dr. Chrissy Frazier Urea nitrogen/Creatinine [Mass ratio] 5.4 mg/mg Normal [facility] Comment on above: Performed By: #### L IPA, TERRENCE, CMP ####[facility] Mzzngdimrn4825[address] [place], [place] [address]Dr. Chrissy Frazier AMYLASEon 09-02-2022 Amylase [Catalytic activity/Vol] 29 U/L Normal 25-115 [facility] Comment on above: Performed By: #### A MY, CMP, LIPA ####[facility] Yrusjfmxix47[address] [place], [place] [address]Dr. Chrissy Frazier CBC AUTO DIFFon 09-02-2022 BASO # 0.1 103/ul Normal 0.0-0.1 [facility] Comment on above: Performed By: #### C BC ####[facility] Szywscbhgm27[address] [place], [place] [address]Dr. Chrissy Frazier Basophils/100 WBC (Bld) 0.4 % Normal 0.2-2.0 [facility] Comment on above: Performed By: #### C BC ####[facility] Qfkxnampkn15[address] [place], [place] [address]Dr. Chrissy Frazier EO # 0.1 103/ul Normal 0.0-0.7 [facility] Comment on above: Performed By: #### C BC ####[facility] Pfssizrvox88[address] [place], [place] [address]Dr. Chrissy Frazier Eosinophils/100 WBC (Bld) 0.7 % Critically low 0.9-7.0 [facility] Comment on above: Performed By: #### C BC ####[facility] Svrhyrqfro3[address] [place], [place] [address]Dr. Chrissy Frazier Erythrocyte distribution width (RBC) [Ratio] 13.7 % Normal 11.0-15.0 [facility] Comment on above: Performed By: #### C BC ####[facility] Amojwjgmus2425 [place] [phone]. Chrissy Frazier Hematocrit (Bld) [Volume fraction] 48.3 % Normal 42.0-54.0 [facility] Comment on above: Performed By: #### C BC ####[facility] Jgokjjjumr8415 [place] [phone]. Chrissy Frazier Hemoglobin (Bld) [Mass/Vol] 16.0 g/dL Normal 14.0-18.0 [facility] Comment on above: Performed By: #### C BC ####[facility] Vxpeqpfpyl3983 [place] [phone]. Chrissy Freddie IG # 0.09 10e3/ul Critically high 0.00-0.03 [facility] Comment on above: Performed By: #### C BC ####[facility] Qgxqiyexdr2734 [place] [address]Dr. Chrissy Frazier IG % 0.5 % Normal 0.0-0.5 [facility] Comment on above: Performed By: #### C BC ####[facility] Laetxgeapx6946 [place] [address]Dr. Tishrowan Frazier LYMPH # 3.7 103/ul Normal 1.2-3.8 [facility] Comment on above: Performed By: #### C BC ####[facility] Coqbczjyik28[address] [place] [address]Dr. Tishrowan Fraizer Lymphocytes/100 WBC (Bld) 21.5 % Normal 20.5-60.0 [facility] Comment on above: Performed By: #### C BC ####[facility] Zdcbrcgice3103 [place] [id number]. Tishrowan Frazier MANUAL DIFF REQ NO Normal [facility] Comment on above: Performed By: #### C BC ####[facility] Kujttqbfuv1205 [place] [address]Dr. Chrissy Freddie MCH (RBC) [Entitic mass] 28.1 pg Normal 25.9-34.0 [facility] Comment on above: Performed By: #### C BC ####[facility] Qkzlpnugja9368 [place] [phone]. Chrissy Frazier MCHC (RBC) [Mass/Vol] 33.1 g/dL Normal 29.9-35.2 [facility] Comment on above: Performed By: #### C BC ####[facility] Cpshxiqlgk2924 [place] [phone]. Chrissy Frazier MCV (RBC) [Entitic vol] 84.7 fL Normal 80.0-94.0 [facility] Comment on above: Performed By: #### C BC ####[facility] Ltasaperdl1388 [place] [phone]. Chrissy Frazier MONO # 0.7 103/ul Normal 0.3-0.8 [facility] Comment on above: Performed By: #### C BC ####[facility] Nyyurkvdme0422 [place] [address]Dr. Chrissy Frazier Monocytes/100 WBC (Bld) 4.2 % Normal 1.7-12.0 [facility] Comment on above: Performed By: #### C BC ####[facility] Zngbkurzss[address] [place], [place] [address]Dr. Chrissy Frazier NEUT # 12.4 103/ul Critically high 1.4-6.5 [facility] Comment on above: Performed By: #### C BC ####[facility] Mdmxzxorib6266 [place] [id number]. Chrissy Frazier Neutrophils/100 WBC (Bld) 72.7 % Normal 43.0-75.0 [facility] Comment on above: Performed By: #### C BC ####[facility] Umldhrrwti7897 [place] [phone]. Chrissy Frazier Platelet mean volume (Bld) [Entitic vol] 10.9 fL Normal 9.5-13.5 [facility] Comment on above: Performed By: #### C BC ####[facility] Kgacuzenbo2038 [place] [phone]. Chrissy Freddie PLT 386 103/ul Normal 150-450 [facility] Comment on above: Performed By: #### C BC ####[facility] Znrzoguwzz6297 [place], [place] [address]Bq. Chrissy Frazier RBC 5.70 106/ul Normal 4.70-6.10 [facility] Comment on above: Performed By: #### C BC ####[facility] Avtverkdgr5051 [place] [phone]. Chrissy Frazier WBC 17.0 103/ul Critically high 4.0-11.0 [facility] Comment on above: Performed By: #### C BC ####[facility] Fvakrchjii0008 [place] [phone]. Chrissy Frazier Covid-19 PCR (CVDTBH)on 08-21 SARS-CoV-2 (COVID-19) RNA RHIANNON+probe Ql (Unsp spec) Not detected Normal NOT DETECTED [facility] Comment on above: Result Comment: When [...] for this test is supported by the [employer]'s declaration that [...] be used). Performed By: #### C VDTBH ####[facility] Erdqpmtofd2558 [place] [phone]. Chrissy Frazier LACTATE/LACTIC ACIDon 2021 Lactate [Moles/Vol] 7.1 mmol/L Critically high 0.4-1.9 [facility] Comment on above: Performed By: #### L ACT ####[facility] Nalywvytrs1128 [place] [phone]. Chrissy Frazier Lactate [Moles/Vol] 8.6 mmol/L Critically high 0.4-1.9 [facility] Comment on above: Performed By: #### L ACT ####[facility] Jeuzjpgtyg4[address] [place], [place] [address]Dr. Chrissy Frazier LIPASEon 09-02-2022 Lipase [Catalytic activity/Vol] 60.0 U/L Critically low 73.0-393.0 [facility] Comment on above: Performed By: #### A MY, CMP, LIPA ####[facility] Rfhvxcrbou[address] [place], [place] [address]Dr. Chrissy Frazier POINT OF CARE GLUCOSEon 08-21 Glucose [Mass/Vol] 140 mg/dL Critically high 74-106 [facility] Comment on above: Performed By: #### P OCGLUC ####[facility] Aggkwigeav1597[address] [place], [place] [address]Dr. Chrissy Frazier PROF 14(COMP METB)on 022 Albumin [Mass/Vol] 4.3 g/dL Normal 3.4-5.0 [facility] Comment on above: Performed By: #### A MY, CMP, LIPA ####[facility] Ymczhniokm[address] [place], [place] [address]Dr. Chrissy Frazier Albumin/Globulin [Mass ratio] 1.0 {ratio} Normal [facility] Comment on above: Performed By: #### A MY, CMP, LIPA ####[facility] Mvhrfnpoed4338 [place] [address]Dr. Chrissy Frazier ALP [Catalytic activity/Vol] 82 U/L Normal 46-116 [facility] Comment on above: Performed By: #### A MY, CMP, LIPA ####[facility] Qfytzmrbjz8605 [place] [address]Dr. Chrissy Frazier ALT [Catalytic activity/Vol] 48 U/L Normal 16-63 [facility] Comment on above: Performed By: #### A MY, CMP, LIPA ####[facility] Owotmowlho0792 [place] [address]Dr. Chrissy Frazier Anion gap [Moles/Vol] 25.3 mmol/L Normal [facility] Comment on above: Performed By: #### A MY, CMP, LIPA ####[facility] Uxeagttoqd9543 [place] [address]Dr. Chrissy Frazier AST [Catalytic activity/Vol] 33 U/L Normal 15-37 [facility] Comment on above: Performed By: #### A MY, CMP, LIPA ####[facility] Fjpowwallf[address] [place], [place] [address]Dr. Chrissy Frazier Bilirubin [Mass/Vol] 0.7 mg/dL Normal 0.2-1.0 [facility] Comment on above: Performed By: #### A MY, CMP, LIPA ####[facility] Lmzmhiacew6[address] [place], [place] [address]Dr. Chrissy Frazier Calcium [Mass/Vol] 9.5 mg/dL Normal 8.5-10.1 [facility] Comment on above: Performed By: #### A MY, CMP, LIPA ####[facility] Cxadirpxgk4225[address] [place], [place] [address]Dr. Chrissy Frazier Chloride [Moles/Vol] 100 mmol/L Normal 98-107 [facility] Comment on above: Performed By: #### A MY, CMP, LIPA ####[facility] Fawwrumopa[address] [place], [place] [address]Dr. Chrissy Frazier CO2 [Moles/Vol] 14.2 mmol/L Critically low 21.0-32.0 [facility] Comment on above: Performed By: #### A MY, CMP, LIPA ####[facility] Iibsohqkfj[address] [place], [place] [address]Dr. Chrissy Frazier Creatinine [Mass/Vol] 1.70 mg/dL Critically high 0.70-1.30 [facility] Comment on above: Performed By: #### A MY, CMP, LIPA ####[facility] Merdbzjnyg4[address] [place], [place] [address]Dr. Chrissy Frazier EGFR-AF ALBANIAN 57 mL/min/1.73m2 Critically low >=60 [facility] Comment on above: Performed By: #### A MY, CMP, LIPA ####[facility] Dvaaxketyp3971 [place] [phone]. Chrissy Frazier EGFR-NON AF ALBANIAN 47 mL/min/1.73m2 Critically low >=60 [facility] Comment on above: Performed By: #### A MY, CMP, LIPA ####[facility] Yjtzpupkkz2831 [place] [address]Dr. Chrissy Frazier Globulin (S) [Mass/Vol] 4.2 g/dL Normal [facility] Comment on above: Performed By: #### A MY, CMP, LIPA ####[facility] Kgnvwmmksw8452 [place] [address]Dr. Chrissy Frazier Glucose [Mass/Vol] 212 mg/dL Critically high 74-106 [facility] Comment on above: Performed By: #### A MY, CMP, LIPA ####[facility] Ofvivvwdbn2121 [place] [address]Dr. Chrissy Frazier Potassium [Moles/Vol] 3.5 mmol/L Normal 3.5-5.1 [facility] Comment on above: Performed By: #### A MY, CMP, LIPA ####[facility] Emlihqwubj5936 [place] [address]Dr. Chrissy Frazier Protein [Mass/Vol] 8.5 g/dL Critically high 6.4-8.2 [facility] Comment on above: Performed By: #### A MY, CMP, LIPA ####[facility] Drjmhqdupx2172 [place] [address]Dr. Chrissy Frazier Sodium [Moles/Vol] 136 mmol/L Normal 136-145 [facility] Comment on above: Performed By: #### A MY, CMP, LIPA ####[facility] Gpelpsyrwk3977 [place] [address]Dr. Chrissy Frazier Urea nitrogen [Mass/Vol] 9.0 mg/dL Normal 7.0-18.0 [facility] Comment on above: Performed By: #### A MY, CMP, LIPA ####[facility] Acthmcglsc3919 [place] [address]Dr. Yilan Frazier Urea nitrogen/Creatinine [Mass ratio] 5.3 mg/mg Normal [facility] Comment on above: Performed By: #### A MY, CMP, LIPA ####[facility] G[address]qewnirv[address] [place], [place] [address]Dr. Chrissy Frazier AMYLASEon 07-07-2022 Amylase [Catalytic activity/Vol] 33 U/L Normal 25-115 [facility] Comment on above: Performed By: #### C MP, TERRENCE, BNP, LIPA ####[facility] Iwhrcqpout[address] [place], [place] [address]Dr. Chrissy Frazier BNPon 07-07-2022 Natriuretic peptide B (Bld) [Mass/Vol] 29.0 pg/mL Normal <=450.0 [facility] Comment on above: Performed By: #### C MP, TERRENCE, BNP, LIPA ####[facility] Prdezksfdv038[address] [place], [place] [address]Dr. Chrissy Frazier CBC AUTO DIFFon 07-07-2022 BASO # 0.0 103/ul Normal 0.0-0.1 [facility] Comment on above: Performed By: #### C BC ####[facility] Jrqqfenxzv1335[address] [place], [place] [address]Dr. Chrissy Frazier Basophils/100 WBC (Bld) 0.4 % Normal 0.2-2.0 [facility] Comment on above: Performed By: #### C BC ####[facility] Vahossplwo9570[address] [place], [place] [address]Dr. Chrissy Frazier EO # 0.3 103/ul Normal 0.0-0.7 [facility] Comment on above: Performed By: #### C BC ####[facility] Qmxogqeksf2622[address] [place], [place] [address]Dr. Chrissy Frazier Eosinophils/100 WBC (Bld) 3.0 % Normal 0.9-7.0 [facility] Comment on above: Performed By: #### C BC ####[facility] Thpkqhhgvk2059[address] [place], [place] [address]Dr. Chrissy Frazier Erythrocyte distribution width (RBC) [Ratio] 14.0 % Normal 11.0-15.0 [facility] Comment on above: Performed By: #### C BC ####[facility] Vjzdyyvapn[address] [place] [address]DrNancy Frazier Hematocrit (Bld) [Volume fraction] 42.8 % Normal 42.0-54.0 [facility] Comment on above: Performed By: #### C BC ####[facility] Vmejlwxwjw3112 [place] [address]DrNancy Frazier Hemoglobin (Bld) [Mass/Vol] 14.3 g/dL Normal 14.0-18.0 [facility] Comment on above: Result Comment: IV F LUIDS RUNNING Performed By: #### C BC ####[facility] Osdiziazrk332[address] [place], [place] [address]DrNancy Frazier IG # 0.05 10e3/ul Critically high 0.00-0.03 [facility] Comment on above: Performed By: #### C BC ####[facility] Qmmarbigaa794[address] [place], [place] [address]DrNancy Frazier IG % 0.5 % Normal 0.0-0.5 [facility] Comment on above: Performed By: #### C BC ####[facility] Papjturtji7620[address] [place], [place] [address]DrNancy Frazier LYMPH # 2.4 103/ul Normal 1.2-3.8 [facility] Comment on above: Performed By: #### C BC ####[facility] Lxzlobsodt0046[address] [place], [place] [address]DrNancy Frazier Lymphocytes/100 WBC (Bld) 25.5 % Normal 20.5-60.0 [facility] Comment on above: Performed By: #### C BC ####[facility] Lpxqlitzbk0554[address] [place], [place] [address]DrNancy Frazier MANUAL DIFF REQ NO Normal [facility] Comment on above: Performed By: #### C BC ####[facility] Chtxxnipkm4034 [place] [address]DrNancy Frazier MCH (RBC) [Entitic mass] 28.5 pg Normal 25.9-34.0 [facility] Comment on above: Performed By: #### C BC ####[facility] Mwqhsnfcuf6753 [place] [address]Dr. Chrissy Frazier MCHC (RBC) [Mass/Vol] 33.4 g/dL Normal 29.9-35.2 [facility] Comment on above: Performed By: #### C BC ####[facility] Iyrdvzvxcj1116 [place] [address]Dr. Chrissy Frazier MCV (RBC) [Entitic vol] 85.3 fL Normal 80.0-94.0 [facility] Comment on above: Performed By: #### C BC ####[facility] Zrgfoycejr22[address] [place], [place] [address]DrNancy Frazier MONO # 0.7 103/ul Normal 0.3-0.8 [facility] Comment on above: Performed By: #### C BC ####[facility] Ulxlcvcenp9414[address] [place], [place] [address]Dr. Chrissy Frazier Monocytes/100 WBC (Bld) 7.8 % Normal 1.7-12.0 [facility] Comment on above: Performed By: #### C BC ####[facility] Vdykobkizg2192[address] [place], [place] [address]Dr. Chrissy Frazier NEUT # 5.8 103/ul Normal 1.4-6.5 [facility] Comment on above: Performed By: #### C BC ####[facility] Suzfnpoqsq188160 [address] [place], [place] [address]Dr. Chrissy Frazier Neutrophils/100 WBC (Bld) 62.8 % Normal 43.0-75.0 [facility] Comment on above: Performed By: #### C BC ####[facility] Aochhoqyxv0154[address] [place], [place] [address]Dr. Chrissy Frazier Platelet mean volume (Bld) [Entitic vol] 10.8 fL Normal 9.5-13.5 [facility] Comment on above: Performed By: #### C BC ####[facility] Cekcchxysx2582[address] [place], [place] [address]Dr. Chrissy Frazier PLT 310 103/ul Normal 150-450 [facility] Comment on above: Performed By: #### C BC ####[facility] Whypzgdkbt5184 [place] [id number]. Chrissy Frazier RBC 5.02 106/ul Normal 4.70-6.10 [facility] Comment on above: Performed By: #### C BC ####[facility] Nmsyrtzotn86[address] [place], [place] [address]Ul. Chrissy Frazier WBC 9.3 103/ul Normal 4.0-11.0 [facility] Comment on above: Performed By: #### C BC ####[facility] Ngvzapfego8900 [place] [id number]. Tishrowan Freddie CULTURE URINEon 07-07-2022 CULTURE URINE Culture Observations: NO GROWTH. Normal [facility] Comment on above: Performed By: #### U RCX ####[facility] Sjxfqjrobo8319 [place] [phone]. Chrissy Frazier DRUG SCREEN RAPID (URINE)on 07-07-2022 AMP Negative Normal NEGATIVE [facility] Comment on above: Performed By: #### D RUGRPD ####[facility] Jnsjhabetn4752 [place] [phone]. Chrissy Frazier BAR Negative Normal NEGATIVE [facility] Comment on above: Performed By: #### D RUGRPD ####[facility] Gxhnjtomuf9379 [place] [phone]. Chrissy Frazier BUP Negative Normal NEGATIVE [facility] Comment on above: Performed By: #### D RUGRPD ####[facility] Sznncsmgzd6063 [place] [phone]. Chrissy Frazier BZO Positive Abnormal NEGATIVE [facility] Comment on above: Performed By: #### D RUGRPD ####[facility] Selaysnygz5461 [place] [phone]. Chrissy Frazier LAUREN Negative Normal NEGATIVE [facility] Comment on above: Performed By: #### D RUGRPD ####[facility] Mhjvpxfvfr5419 [place] [phone]. Chrissy Frazier CUT-OFFS SEE BELOW Normal [facility] Comment on above: Result Comment: AMP (Amphetamine): 500ng/mL, BAR (Barbituates): 200 ng/mL, BZO (Benzodiazepines): 150 ng/mL, BUP (Buprenorphine): 10 ng/mL, LAUREN (Cocaine): 150 ng/mL, mAMP (Methamphetamine): 500 ng/mL, MTD (Methadone): 200 ng/mL, OPI (Opiates): 100 ng/mL, OXY (Oxycodone): 100 ng/mL, PCP (Phencyclidine): 25 ng/mL, PPX (Propoxyphene): 300 ng/mL, THC (Cannabinoids): 50 ng/mL, TCA (Trycyclic Antidepressants): 300 ng/mL Performed By: #### D RUGRPD ####[facility] Jyoesadzml225[address] [place], [place] [address]Dr. [facility] DRUG CUT HEADER DRUG CLASS TEST SYSTEM CUT-OFF CONCENTRATIONS ARE FOLLOWS: Normal [facility] Comment on above: Performed By: #### D RUGRPD ####[facility] Jleikbzogs1806[address] [place], [place] [address]Dr. Tishrowan [facility] mAMP Negative Normal NEGATIVE [facility] Comment on above: Performed By: #### D RUGRPD ####[facility] Obciozfzkj5887[address] [place], [place] [address]Dr. Chrissy [facility] MTD Negative Normal NEGATIVE [facility] Comment on above: Performed By: #### D RUGRPD ####[facility] Bhitzxdsmg7617[address] [place], [place] [address]Dr. Chrissy [facility] OPI Negative Normal NEGATIVE [facility] Comment on above: Performed By: #### D RUGRPD ####[facility] Xouprgyege577[address] [place], [place] [address]Dr. Chrissy Frazier OXY Negative Normal NEGATIVE [facility] Comment on above: Performed By: #### D RUGRPD ####[facility] Ellznjdzsx380[address] [place], [place] [address]Dr. Chrissy [facility] PCP Negative Normal NEGATIVE [facility] Comment on above: Performed By: #### D RUGRPD ####[facility] Hxgkrwyble[address] [place], [place] [address]Dr. Chrissy Freddie PPX Negative Normal NEGATIVE [facility] Comment on above: Performed By: #### D RUGRPD ####[facility] Shpnnkftuk[address] [place] [address]Dr. Chrissy Freddie TCA Positive Abnormal NEGATIVE [facility] Comment on above: Performed By: #### D RUGRPD ####[facility] Mujpyytjii8244 [place] [address]Dr. Chrissy Freddie THC Positive Abnormal NEGATIVE [facility] Comment on above: Performed By: #### D RUGRPD ####[facility] Wpoyalvytt1105 [place] [address]Dr. Tishrowan Frazier LIPASEon 07-07-2022 Lipase [Catalytic activity/Vol] 118.0 U/L Normal 73.0-393.0 [facility] Comment on above: Performed By: #### L IPA ####[facility] Imcaatdxgt6180[address] [place], [place] [address]Dr. Chrissy Frazier Lipase [Catalytic activity/Vol] 114.0 U/L Normal 73.0-393.0 [facility] Comment on above: Performed By: #### C MP, TERRENCE, BNP, LIPA ####[facility] Puczuchgtq6129[address] [place], [place] [address]Dr. Chrissy Frazier PROF 14(COMP METB)on 022 Albumin [Mass/Vol] 3.4 g/dL Normal 3.4-5.0 [facility] Comment on above: Performed By: #### C MP, TERRENCE, BNP, LIPA ####[facility] Hqzzciajfv8496 [place] [address]Dr. Chrissy Frazier Albumin/Globulin [Mass ratio] 1.1 {ratio} Normal [facility] Comment on above: Performed By: #### C MP, TERRENCE, BNP, LIPA ####[facility] Ynbacazcmz2293 [place] [address]Dr. Chrissy Frazier ALP [Catalytic activity/Vol] 68 U/L Normal 46-116 [facility] Comment on above: Performed By: #### C MP, TERRENCE, BNP, LIPA ####[facility] Gakwbcwwyj0319 [place] [address]Dr. Chrissy Frazier ALT [Catalytic activity/Vol] 93 U/L Critically high 16-63 [facility] Comment on above: Performed By: #### C MP, TERRENCE, BNP, LIPA ####[facility] Ptbodvyanp7540 [place] [address]Dr. Chrissy Frazier Anion gap [Moles/Vol] 14.4 mmol/L Normal [facility] Comment on above: Performed By: #### C MP, TERRENCE, BNP, LIPA ####[facility] Vywpcaydkg9952 [place] [address]Dr. Chrissy Frazier AST [Catalytic activity/Vol] 33 U/L Normal 15-37 [facility] Comment on above: Performed By: #### C MP, TERRENCE, BNP, LIPA ####[facility] Jaduwhpcmc2680 [place] [address]Dr. Chrissy Frazier Bilirubin [Mass/Vol] 0.9 mg/dL Normal 0.2-1.0 [facility] Comment on above: Performed By: #### C MP, TERRENCE, BNP, LIPA ####[facility] Tipfmqgqgu5188[address] [place], [place] [address]Dr. Chrissy Frazier Calcium [Mass/Vol] 8.2 mg/dL Critically low 8.5-10.1 [facility] e [facility] Comment on above: Performed By: #### C MP, TERRENCE, BNP, LIPA ####[facility] Fqyhovrnhi2855[address] [place], [place] [address]Dr. Chrissy Frazier Chloride [Moles/Vol] 103 mmol/L Normal 98-107 [facility] Comment on above: Performed By: #### C MP, TERRENCE, BNP, LIPA ####[facility] Qhyrltapir9563[address] [place], [place] [address]Dr. Chrissy Frazier CO2 [Moles/Vol] 22.9 mmol/L Normal 21.0-32.0 [facility] Comment on above: Performed By: #### C MP, TERRENCE, BNP, LIPA ####[facility] Igezzybvfl4146[address] [place], [place] [address]Dr. Chrissy Frazier Creatinine [Mass/Vol] 1.07 mg/dL Normal 0.70-1.30 [facility] Comment on above: Performed By: #### C MP, TERRENCE, BNP, LIPA ####[facility] Evohrmmhne6713 [place] [address]Dr. Chrissy Frazier EGFR-AF ALBANIAN >60 Normal >=60 [facility] Comment on above: Performed By: #### C MP, TERRENCE, BNP, LIPA ####[facility] Fekgmuyfeo80[address] [place] [address]Dr. Chrissy Frazier EGFR-NON AF ALBANIAN >60 Normal >=60 [facility] Comment on above: Performed By: #### C MP, TERRENCE, BNP, LIPA ####[facility] Slkpyfkrah3375 [place] [address]Dr. Chrissy Frazier Globulin (S) [Mass/Vol] 3.2 g/dL Normal [facility] Comment on above: Performed By: #### C MP, TERRENCE, BNP, LIPA ####[facility] Nrbubqeypc7772[address] [place], [place] [address]Dr. Chrissy Frazier Glucose [Mass/Vol] 96 mg/dL Normal 74-106 [facility] Comment on above: Performed By: #### C MP, TERRENCE, BNP, LIPA ####[facility] Tmsexushrc8514 [place] [address]Dr. Chrissy Frazier Potassium [Moles/Vol] 3.3 mmol/L Critically low 3.5-5.1 [facility] Comment on above: Performed By: #### C MP, TERRENCE, BNP, LIPA ####[facility] Tpatuvkuzr7348 [place] [address]Dr. Chrissy Frazier Protein [Mass/Vol] 6.6 g/dL Normal 6.4-8.2 [facility] Comment on above: Performed By: #### C MP, TERRENCE, BNP, LIPA ####[facility] Mefgaqezhu5416 [place] [address]Dr. Chrissy Frazier Sodium [Moles/Vol] 137 mmol/L Normal 136-145 [facility] Comment on above: Performed By: #### C MP, TERRENCE, BNP, LIPA ####[facility] Auwcfutvsd3060[address] [place], [place] [address]Dr. Chrissy Frazier Urea nitrogen [Mass/Vol] 13.0 mg/dL Normal 7.0-18.0 [facility] Comment on above: Performed By: #### C MP, TERRENCE, BNP, LIPA ####[facility] Focmxmziww7210[address] [place], [place] [address]Dr. Chrissy Frazier Urea nitrogen/Creatinine [Mass ratio] 12.1 mg/mg Normal [facility] Comment on above: Performed By: #### C MP, TERRENCE, BNP, LIPA ####[facility] Dkbuqwmfss4094[address] [place], [place] [address]Dr. Chrissy Frazier UA RANDOM W/MICROSCOPICon BACTERIA TRACE Abnormal NONE SEEN [facility] Comment on above: Performed By: #### U AMIC ####[facility] Baoycrapmk3366[address] [place], [place] [address]Dr. Chrissy Frazier Bilirubin Ql (U) Negative Normal NEGATIVE [facility] Comment on above: Performed By: #### U AMIC ####[facility] Jjzeixekaw6328[address] [place], [place] [address]Dr. Chrissy Frazier CAST NONE SEEN Normal NONE SEEN [facility] Comment on above: Performed By: #### U AMIC ####[facility] Vvlcefmxva3128[address] [place], [place] [address]Dr. Chrissy Frazier Clarity (U) CLEAR Normal CLEAR [facility] Comment on above: Performed By: #### U AMIC ####[facility] Swqpgtmotm2104[address] [place], [place] [address]Dr. Chrissy Frazier Color (U) YELLOW Normal YELLOW [facility] Comment on above: Performed By: #### U AMIC ####[facility] Nputnbxiqx8956[address] [place], [place] [address]Dr. Chrissy Frazier Crystals LM Nom (Urine sed) SEEN Abnormal NONE SEEN [facility] Comment on above: Performed By: #### U AMIC ####[facility] Iehmpawxry1465[address] [place], [place] [address]Dr. Chrissy Frazier Epithelial cells LM Ql (Urine sed) RARE Normal NONE SEEN /RARE [facility] Comment on above: Performed By: #### U AMIC ####[facility] Boupttvmnn9353 [place] [address]Dr. Chrissy Frazier Glucose Ql (U) Negative Normal NEGATIVE [facility] Comment on above: Performed By: #### U AMIC ####[facility] Cgqqsnbizm8714[address] [place], [place] [address]Dr. Chrissy Frazier Hemoglobin Ql (U) Negative Normal NEGATIVE The [facility] Comment on above: Performed By: #### U AMIC ####[facility] Deutmyytay8805[address] [place], [place] [address]Dr. Chrissy Frazier Ketones Ql (U) 15 mg/dl Abnormal NEGATIVE [facility] Comment on above: Performed By: #### U AMIC ####[facility] Jwdqnngpem025[address] [place], [place] [address]Dr. Chrissy Frazier LEUKOCYTES Negative Normal NEGATIVE [facility] Comment on above: Performed By: #### U AMIC ####[facility] Nxvflnugjx9972[address] [place], [place] [address]Dr. Chrissy Frazier MUCOUS NONE SEEN Normal NONE SEEN [facility] Comment on above: Performed By: #### U AMIC ####[facility] Hfmmyvmrct4526[address] [place], [place] [address]Dr. Chrissy Frazier Nitrite Ql (U) Negative Normal NEGATIVE [facility] Comment on above: Performed By: #### U AMIC ####[facility] Vqgnumagws535[address] [place], [place] [address]Dr. Chrissy Frazier pH (U) 6.0 [pH] Normal 5-9 [facility] Comment on above: Performed By: #### U AMIC ####[facility] Hkgllwtjci8318[address] [place], [place] [address]Dr. Chrissy Frazier RBC 0-2 Normal 0-2 [facility] Comment on above: Performed By: #### U AMIC ####[facility] Fstuuhodud6756[address] [place], [place] [address]Dr. Chrissy Frazier SPEC GRAVITY 1.015 Normal 1.005-<=1.025 [facility] Comment on above: Performed By: #### U AMIC ####[facility] Xdjqvexwxx4836 [place] [address]Dr. Chrissy Frazier UA PROTEIN Negative Normal NEGATIVE/ TRACE [facility] Comment on above: Performed By: #### U AMIC ####[facility] Slrzccubfl7752 [place] [address]Dr. Chrissy Frazier URIC ACID CRYSTALS RARE Normal [facility] Comment on above: Performed By: #### U AMIC ####[facility] Qissnicwlc4043 [place] [address]Dr. Chrissy Freddie Urobilinogen Qn (U) 0.2 {Estrellita'U}/dL Normal 0.2 - 1. 0 [facility] Comment on above: Performed By: #### U AMIC ####[facility] Ypowqcyouw8388[address] [place], [place] [address]Dr. Tishrowan Frazier WBC 0-2 Abnormal NONE SEEN [facility] Comment on above: Performed By: #### U AMIC ####[facility] Zejcnjqjms2960[address] [place], [place] [address]Dr. Chrissy Freddie AMYLASEon 07-06-2022 Amylase [Catalytic activity/Vol] 37 U/L Normal 25-115 [facility] Comment on above: Performed By: #### C MP, LIPA, TERRENCE ####[facility] Pkafbfgopg3886[address] [place], [place] [address]Dr. Chrissy Frazier CBC AUTO DIFFon 07-06-2022 BASO # 0.1 103/ul Normal 0.0-0.1 [facility] Comment on above: Performed By: #### C BC ####[facility] Qzcjaviidv6217[address] [place], [place] [address]Dr. Tishrowan Frazier Basophils/100 WBC (Bld) 0.4 % Normal 0.2-2.0 [facility] Comment on above: Performed By: #### C BC ####[facility] Frhwfcxtuo9576[address] [place], [place] [address]Dr. Chrissy Frazier EO # 0.1 103/ul Normal 0.0-0.7 [facility] Comment on above: Performed By: #### C BC ####[facility] Oukckyvcmf8772 [place] [address]Dr. Chrissy Frazier Eosinophils/100 WBC (Bld) 0.5 % Critically low 0.9-7.0 [facility] Comment on above: Performed By: #### C BC ####[facility] Vgaiqjzsyj[address] [place], [place] [address]Dr. Chrissy Frazier Erythrocyte distribution width (RBC) [Ratio] 13.6 % Normal 11.0-15.0 [facility] Comment on above: Performed By: #### C BC ####[facility] Izwgjsbswg1976[address] [place], [place] [address]Dr. Chrissy Frazier Hematocrit (Bld) [Volume fraction] 47.9 % Normal 42.0-54.0 [facility] Comment on above: Performed By: #### C BC ####[facility] Fxcsvhvvnp8655[address] [place], [place] [address]Dr. Chrissy Frazier Hemoglobin (Bld) [Mass/Vol] 16.4 g/dL Normal 14.0-18.0 [facility] Comment on above: Performed By: #### C BC ####[facility] Jawgofdtqu2854[address] [place], [place] [address]Dr. Chrissy Frazier IG # 0.09 10e3/ul Critically high 0.00-0.03 [facility] Comment on above: Performed By: #### C BC ####[facility] Uuutuprnfp9035[address] [place], [place] [address]Dr. Chrissy Frazier IG % 0.6 % Critically high 0.0-0.5 [facility] Comment on above: Performed By: #### C BC ####[facility] Iflhccygjn4164[address] [place], [place] [address]Dr. Chrissy Frazier LYMPH # 2.5 103/ul Normal 1.2-3.8 [facility] Comment on above: Performed By: #### C BC ####[facility] Uihnceronf2454[address] [place], [place] [address]Dr. Chrissy Frazier Lymphocytes/100 WBC (Bld) 16.7 % Critically low 20.5-60.0 [facility] Comment on above: Performed By: #### C BC ####[facility] Xfmrhymely3145 [place] [address]DrNancy Frazier MANUAL DIFF REQ NO Normal [facility] Comment on above: Performed By: #### C BC ####[facility] Vthkxfjrwk6256 [place] [address]DrNancy Frazier MCH (RBC) [Entitic mass] 28.1 pg Normal 25.9-34.0 [facility] Comment on above: Performed By: #### C BC ####[facility] Ozsmmmmgmz7958[address] [place], [place] [address]DrNancy Frazier MCHC (RBC) [Mass/Vol] 34.2 g/dL Normal 29.9-35.2 [facility] Comment on above: Performed By: #### C BC ####[facility] Pjaebkwgiz1339[address] [place], [place] [address]DrNancy Frazier MCV (RBC) [Entitic vol] 82.2 fL Normal 80.0-94.0 [facility] Comment on above: Performed By: #### C BC ####[facility] O[address]fthzvtn18[address] [place], [place] [address]DrNancy Frazier MONO # 1.0 103/ul Critically high 0.3-0.8 [facility] Comment on above: Performed By: #### C BC ####[facility] Ttnhgdlmia4[address] [place], [place] [address]DrNancy Frazier Monocytes/100 WBC (Bld) 6.7 % Normal 1.7-12.0 [facility] Comment on above: Performed By: #### C BC ####[facility] Sxwpbnnama[address] [place], [place] [address]DrNancy Frazier NEUT # 11.3 103/ul Critically high 1.4-6.5 [facility] Comment on above: Performed By: #### C BC ####[facility] Ogzpybhcei[address] [place], [place] [address]DrNancy Frazier Neutrophils/100 WBC (Bld) 75.1 % Critically high 43.0-75.0 [facility] Comment on above: Performed By: #### C BC ####[facility] Paktqohtox[address] [place] [id number]. Chrissy Frazier Platelet mean volume (Bld) [Entitic vol] 10.6 fL Normal 9.5-13.5 [facility] Comment on above: Performed By: #### C BC ####[facility] Aftbybijub7944 [place] [phone]. Chrissy Frazier PLT 416 103/ul Normal 150-450 [facility] Comment on above: Performed By: #### C BC ####[facility] Grmjsjumgr2302 [place] [phone]. Chrissy Frazier RBC 5.83 106/ul Normal 4.70-6.10 [facility] Comment on above: Performed By: #### C BC ####[facility] Mgsdobslyf6883 [place] [phone]. Chrissy Frazier WBC 15.0 103/ul Critically high 4.0-11.0 [facility] Comment on above: Performed By: #### C BC ####[facility] Wmirddljyp1486 [place] [phone]. Chrissy Frazier [facility]on 06-21 SARS-CoV-2 (COVID-19) RNA RHIANNON+probe Ql (Unsp spec) Not detected Normal NOT DETECTED [facility] Comment on above: Result Comment: When [...] for this test is supported by the [employer] of [employer] and Human Service's declaration that [...] be used). Performed By: #### C VDTBH ####[facility] Kxfepyuuiw2612 [place] [address]Dr. Chrissy Frazier LIPASEon 07-06-2022 Lipase [Catalytic activity/Vol] 130.0 U/L Normal 73.0-393.0 [facility] Comment on above: Performed By: #### C OSWALD ADAIR, TERRENCE ####[facility] Jlkyvfxial1055 [place] [address]Dr. Chrissy Frazier PROF 14(COMP METB)on 022 Albumin [Mass/Vol] 4.4 g/dL Normal 3.4-5.0 [facility] Comment on above: Performed By: #### C MANA LIPA, TERRENCE ####[facility] Sznqkoqphv5[address] [place], [place] [address]Dr. Chrissy Frazier Albumin/Globulin [Mass ratio] 1.1 {ratio} Normal [facility] Comment on above: Performed By: #### C OSWALD ADAIR TERRENCE ####[facility] Uhmipcrvlh[address]02[address] [place], [place] [address]Dr. Chrissy Frazier ALP [Catalytic activity/Vol] 83 U/L Normal 46-116 [facility] Comment on above: Performed By: #### C MANA LIPA, TERRENCE ####[facility] Upqrknbzgo4471 [place] [address]Dr. Chrissy Frazier ALT [Catalytic activity/Vol] 107 U/L Critically high 16-63 [facility] Comment on above: Performed By: #### C TESSA ADAIRA, TERRENCE ####[facility] Mygybqfagq1909 [place] [address]Dr. Chrissy Frazier Anion gap [Moles/Vol] 20.5 mmol/L Normal [facility] Comment on above: Performed By: #### C MANA LIPA, TERRENCE ####[facility] Xrmxchpern399[address] [place], [place] [address]Dr. Chrissy Frazier AST [Catalytic activity/Vol] 46 U/L Critically high 15-37 [facility] Comment on above: Performed By: #### C OSWALD ADAIR, TERRENCE ####[facility] Urggowhzkm7162 [place] [address]Dr. Chrissy Frazier Bilirubin [Mass/Vol] 1.2 mg/dL Critically high 0.2-1.0 [facility] Comment on above: Performed By: #### C TESSA ADAIRA, TERRENCE ####[facility] Xiyotkmkho[address] [place], [place] [address]Dr. Chrissy Frazier Calcium [Mass/Vol] 9.1 mg/dL Normal 8.5-10.1 [facility] Comment on above: Performed By: #### C MANA LIPA, TERRENCE ####[facility] Vimkrfzfnm8130[address] [place], [place] [address]Dr. Chrissy Frazier Chloride [Moles/Vol] 100 mmol/L Normal 98-107 [facility] Comment on above: Performed By: #### C TESSA ADAIRA, TERRENCE ####[facility] Qrwhqreoul846[address] [place], [place] [address]Dr. Chrissy Frazier CO2 [Moles/Vol] 18.6 mmol/L Critically low 21.0-32.0 [facility] Comment on above: Performed By: #### C MANA LIPA, TERRENCE ####[facility] Idkjgyolgm6963[address] [place], [place] [address]Dr. Chrissy Frazier Creatinine [Mass/Vol] 1.44 mg/dL Critically high 0.70-1.30 [facility] Comment on above: Performed By: #### C MANA LIPA, TERRENCE ####[facility] Mqictrcwlu1497[address] [place], [place] [address]Dr. Chrissy Frazier EGFR-AF ALBANIAN >60 Normal >=60 [facility] Comment on above: Performed By: #### C MP, LIPA, TERRENCE ####[facility] Qkdvjhuyfn246[address] [place], [place] [address]Dr. Chrissy Frazier EGFR-NON AF ALBANIAN 57 mL/min/1.73m2 Critically low >=60 [facility] Comment on above: Performed By: #### C MANA LIPA, TERRENCE ####[facility] Oiwcsfbvlx2031 [place] [address]Dr. Chrissy Frazier Globulin (S) [Mass/Vol] 4.0 g/dL Normal [facility] Comment on above: Performed By: #### C MANA LIPA, TERRENCE ####[facility] Lzittbltkk7804 [place] [address]Dr. Chrissy Frazier Glucose [Mass/Vol] 117 mg/dL Critically high 74-106 [facility] Comment on above: Performed By: #### C MANA LIPA, TERRENCE ####[facility] Sxfrcdhsvd2054[address] [place], [place] [address]Dr. Chrissy Frazier Potassium [Moles/Vol] 3.1 mmol/L Critically low 3.5-5.1 [facility] Comment on above: Performed By: #### C MANA LIPA, TERRENCE ####[facility] Tfxulmimmw0816[address] [place], [place] [address]Dr. Chrissy Frazier Protein [Mass/Vol] 8.4 g/dL Critically high 6.4-8.2 [facility] Comment on above: Performed By: #### C TESSA ADAIRA, TERRENCE ####[facility] Jxyruqaxcj3698[address] [place], [place] [address]Dr. Chrissy Frazier Sodium [Moles/Vol] 136 mmol/L Normal 136-145 [facility] Comment on above: Performed By: #### C MANA LIPA, TERRENCE ####[facility] Fxdinjzatj0837[address] [place], [place] [address]Dr. Chrissy Frazier Urea nitrogen [Mass/Vol] 15.0 mg/dL Normal 7.0-18.0 [facility] Comment on above: Performed By: #### C MANA LIPA, TERRENCE ####[facility] Seathguzbe5833[address] [place], [place] [address]Dr. Chrissy Frazier Urea nitrogen/Creatinine [Mass ratio] 10.4 mg/mg Normal [facility] Comment on above: Performed By: #### C MANA LIPA, TERRENCE ####[facility] Acyrqcciht8497 [place] [address]Dr. Chrissy Freddie CBC AUTO DIFFon 07-05-2022 BASO # 0.0 103/ul Normal 0.0-0.1 [facility] Comment on above: Performed By: #### C BC ####[facility] Pdpljkedbo[address] [place], [place] [address]Dr. Chrissy rFazier Basophils/100 WBC (Bld) 0.3 % Normal 0.2-2.0 [facility] Comment on above: Performed By: #### C BC ####[facility] Evdszclczh6543[address] [place], [place] [address]Dr. Chrissy Frazier EO # 0.2 103/ul Normal 0.0-0.7 [facility] Comment on above: Performed By: #### C BC ####[facility] Eayqzpdtfp9865[address] [place], [place] [address]Dr. Chrissy Frazier Eosinophils/100 WBC (Bld) 1.5 % Normal 0.9-7.0 [facility] Comment on above: Performed By: #### C BC ####[facility] Pjnmotexji4184[address] [place], [place] [address]Dr. Tishrowan Frazier Erythrocyte distribution width (RBC) [Ratio] 13.9 % Normal 11.0-15.0 [facility] Comment on above: Performed By: #### C BC ####[facility] Csfrvsvtyv8093[address] [place], [place] [address]Dr. Chrissy Frazier Hematocrit (Bld) [Volume fraction] 44.5 % Normal 42.0-54.0 [facility] Comment on above: Performed By: #### C BC ####[facility] Oqzffpyiep27[address] [place], [place] [address]Dr. Chrissy Frazier Hemoglobin (Bld) [Mass/Vol] 14.8 g/dL Normal 14.0-18.0 [facility] Comment on above: Performed By: #### C BC ####[facility] Xpjabuhqdw249[address] [place], [place] [address]Dr. Chrissy Frazier IG # 0.05 10e3/ul Critically high 0.00-0.03 [facility] Comment on above: Performed By: #### C BC ####[facility] Jrqxsijgdu3064 [place] [phone]. Chrissy Frazier IG % 0.4 % Normal 0.0-0.5 [facility] Comment on above: Performed By: #### C BC ####[facility] Zkthjeqrnj4871 [place] [phone]. Chrissy Frazier LYMPH # 3.3 103/ul Normal 1.2-3.8 [facility] Comment on above: Performed By: #### C BC ####[facility] Rhtkzjridz9723 [place] [phone]. Chrissy Frazier Lymphocytes/100 WBC (Bld) 29.1 % Normal 20.5-60.0 [facility] Comment on above: Performed By: #### C BC ####[facility] Lqojqtvwkc4509 [place] [address]Dr. Chrissy Frazier MANUAL DIFF REQ NO Normal [facility] Comment on above: Performed By: #### C BC ####[facility] Oxwvxycnei1858 [place] [phone]. Chrissy Frazier MCH (RBC) [Entitic mass] 28.2 pg Normal 25.9-34.0 [facility] Comment on above: Performed By: #### C BC ####[facility] Wqdotzyemf8048 [place] [phone]. Chrissy Frazier MCHC (RBC) [Mass/Vol] 33.3 g/dL Normal 29.9-35.2 [facility] Comment on above: Performed By: #### C BC ####[facility] Cfjjhjmyjj3389 [place] [phone]. Chrissy Frazier MCV (RBC) [Entitic vol] 84.9 fL Normal 80.0-94.0 [facility] Comment on above: Performed By: #### C BC ####[facility] Mpagyeqylj5269 [place] [phone]. Chrissy Freddie MONO # 0.6 103/ul Normal 0.3-0.8 [facility] Comment on above: Performed By: #### C BC ####[facility] Dhnefqqgsd6851 [place] [address]Dr. Chrissy Frazier Monocytes/100 WBC (Bld) 5.4 % Normal 1.7-12.0 [facility] Comment on above: Performed By: #### C BC ####[facility] Fbgnkubcgt8415 [place] [phone]. Chrissy Frazier NEUT # 7.1 103/ul Critically high 1.4-6.5 [facility] Comment on above: Performed By: #### C BC ####[facility] Gtbnesegwy2683 [place] [phone]. Chrissy Frazier Neutrophils/100 WBC (Bld) 63.3 % Normal 43.0-75.0 [facility] Comment on above: Performed By: #### C BC ####[facility] Bcplbglssu7831 [place] [address]Dr. Chrissy Frazier Platelet mean volume (Bld) [Entitic vol] 9.9 fL Normal 9.5-13.5 [facility] Comment on above: Performed By: #### C BC ####[facility] Kcemycnhaw2943 [place] [address]Dr. Chrissy Freddie PLT 339 103/ul Normal 150-450 [facility] Comment on above: Performed By: #### C BC ####[facility] Altwkmcsmy3769 [place] [address]Dr. Tishrowan Frazier RBC 5.24 106/ul Normal 4.70-6.10 [facility] Comment on above: Performed By: #### C BC ####[facility] Zowottgkjo3684 [place] [phone]. Chrissy Frazier WBC 11.2 103/ul Critically high 4.0-11.0 [facility] Comment on above: Performed By: #### C BC ####[facility] Iewhhqjuar0459 [place] [address]Dr. Chrissy Frazier PROF 14(COMP METB)on 022 Albumin [Mass/Vol] 3.8 g/dL Normal 3.4-5.0 [facility] Comment on above: Performed By: #### C MP ####[facility] Hdipvfawkz0749 [place] [phone]. Chrissy Freddie Albumin/Globulin [Mass ratio] 1.1 {ratio} Normal [facility] Comment on above: Performed By: #### C MP ####[facility] Sayajtbaiw7158 [place] [phone]. Chrissy Freddie ALP [Catalytic activity/Vol] 67 U/L Normal 46-116 [facility] Comment on above: Performed By: #### C MP ####[facility] Tcvmithvcn7523 [place] [address]Dr. Chrissy Freddie ALT [Catalytic activity/Vol] 75 U/L Critically high 16-63 [facility] Comment on above: Performed By: #### C MP ####[facility] Ntphdwucvj9211 [place] [address]Dr. Chrissy Frazier Anion gap [Moles/Vol] 14.3 mmol/L Normal [facility] Comment on above: Performed By: #### C MP ####[facility] Iiumtkoxlj2758 [place] [address]Dr. Chrissy Freddie AST [Catalytic activity/Vol] 40 U/L Critically high 15-37 [facility] Comment on above: Performed By: #### C MP ####[facility] Sqpasrwtql4494 [place] [address]Dr. Chrissy Frazier Bilirubin [Mass/Vol] 0.9 mg/dL Normal 0.2-1.0 [facility] Comment on above: Performed By: #### C MP ####[facility] Lgnwqlvndr6463 [place] [phone]. Chrissy Frazier Calcium [Mass/Vol] 8.4 mg/dL Critically low 8.5-10.1 [facility] Comment on above: Performed By: #### C MP ####[facility] Hjckibehsd4428 [place] [address]Dr. Chrissy Frazier Chloride [Moles/Vol] 104 mmol/L Normal 98-107 [facility] Comment on above: Performed By: #### C MP ####[facility] Aycfpbwcwx2232 [place] [phone]. Chrissy Frazier CO2 [Moles/Vol] 24.1 mmol/L Normal 21.0-32.0 [facility] Comment on above: Performed By: #### C MP ####[facility] Sxwufewqah9711 [place] [phone]. Chrissy Frazier Creatinine [Mass/Vol] 1.11 mg/dL Normal 0.70-1.30 [facility] Comment on above: Performed By: #### C MP ####[facility] Kqutwhjrdv5885 [place] [phone]. Chrissy Frazier EGFR-AF ALBANIAN >60 Normal >=60 [facility] Comment on above: Performed By: #### C MP ####[facility] Eykkpsknom2277 [place] [address]Dr. Chrissy Frazier EGFR-NON AF ALBANIAN >60 Normal >=60 [facility] Comment on above: Performed By: #### C MP ####[facility] Vmnpnzxhlr8724[address] [place], [place] [address]Dr. Chrissy Frazier Globulin (S) [Mass/Vol] 3.6 g/dL Normal [facility] Comment on above: Performed By: #### C MP ####[facility] Cjmjmthasg632[address] [place], [place] [address]Dr. Chrissy Frazier Glucose [Mass/Vol] 89 mg/dL Normal 74-106 [facility] Comment on above: Performed By: #### C MP ####[facility] Uoesutlymz6311 [place] [address]Dr. Chrissy Frazier Potassium [Moles/Vol] 3.4 mmol/L Critically low 3.5-5.1 [facility] Comment on above: Performed By: #### C MP ####[facility] Ocfehposng2624[address] [place], [place] [address]Dr. Chrissy Freddie Protein [Mass/Vol] 7.4 g/dL Normal 6.4-8.2 [facility] Comment on above: Performed By: #### C MP ####[facility] Tueoototjz8608[address] [place], [place] [address]Dr. Chrissy Frazier Sodium [Moles/Vol] 139 mmol/L Normal 136-145 [facility] Comment on above: Performed By: #### C MP ####[facility] Gsivnwozps480[address] [place], [place] [address]Dr. Chrissy Frazier Urea nitrogen [Mass/Vol] 10.0 mg/dL Normal 7.0-18.0 [facility] Comment on above: Performed By: #### C MP ####[facility] Ybuufywtqz3127[address] [place], [place] [address]Dr. Chrissy Frazier Urea nitrogen/Creatinine [Mass ratio] 9.0 mg/mg Normal [facility] Comment on above: Performed By: #### C MP ####[facility] Rnvbufylmr467[address] [place], [place] [address]Dr. Chrissy Frazier CBC AUTO DIFFon 07-04-2022 BASO # 0.0 103/ul Normal 0.0-0.1 [facility] Comment on above: Performed By: #### C BC ####[facility] Bhwjcocqjh4096[address] [place], [place] [address]Dr. Chrissy Freddie Basophils/100 WBC (Bld) 0.2 % Normal 0.2-2.0 [facility] Comment on above: Performed By: #### C BC ####[facility] Edqblhzjpb0796[address] [place], [place] [address]Dr. Chrissy Frazier EO # 0.0 103/ul Normal 0.0-0.7 [facility] Comment on above: Performed By: #### C BC ####[facility] Sgopdftrev2820[address] [place], [place] [address]Dr. Chrissy Freddie Eosinophils/100 WBC (Bld) 0.3 % Critically low 0.9-7.0 [facility] Comment on above: Performed By: #### C BC ####[facility] Aasrzjlnoy467[address] [place], [place] [address]Dr. Chrissy Frazier Erythrocyte distribution width (RBC) [Ratio] 14.0 % Normal 11.0-15.0 [facility] Comment on above: Performed By: #### C BC ####[facility] Ghtepjvzss9586 [place] [address]Dr. Chrissy Frazier Hematocrit (Bld) [Volume fraction] 43.2 % Normal 42.0-54.0 [facility] Comment on above: Performed By: #### C BC ####[facility] Yxazixnmid6690 [place] [address]Dr. Chrissy Frazier Hemoglobin (Bld) [Mass/Vol] 14.6 g/dL Normal 14.0-18.0 [facility] Comment on above: Performed By: #### C BC ####[facility] Bnhlunhudq8718 [place] [address]Dr. Tishrowan Freddie IG # 0.11 10e3/ul Critically high 0.00-0.03 [facility] Comment on above: Performed By: #### C BC ####[facility] Uzcvmohbxv6384 [place] [address]Dr. Chrissy Frazier IG % 0.8 % Critically high 0.0-0.5 [facility] Comment on above: Performed By: #### C BC ####[facility] Xgamllblrh9456 [place] [address]Dr. Chrissy Frazier LYMPH # 2.6 103/ul Normal 1.2-3.8 [facility] Comment on above: Performed By: #### C BC ####[facility] Rymkxqwssv4740 [place] [address]Dr. Tishrowan Frazier Lymphocytes/100 WBC (Bld) 18.3 % Critically low 20.5-60.0 [facility] Comment on above: Performed By: #### C BC ####[facility] Nmxujztopf9509 [place] [address]Dr. Tishrowan Frazier MANUAL DIFF REQ NO Normal [facility] Comment on above: Performed By: #### C BC ####[facility] Rpupmcimep272[address] [place], [place] [address]Dr. Chrissy Frazier MCH (RBC) [Entitic mass] 28.1 pg Normal 25.9-34.0 [facility] Comment on above: Performed By: #### C BC ####[facility] Ryvdvuzdeb8712 [place] [phone]. Chrissy Frazier MCHC (RBC) [Mass/Vol] 33.8 g/dL Normal 29.9-35.2 [facility] Comment on above: Performed By: #### C BC ####[facility] Ddtfpnspgv9604 [place] [phone]. Chrissy Frazier MCV (RBC) [Entitic vol] 83.2 fL Normal 80.0-94.0 [facility] Comment on above: Performed By: #### C BC ####[facility] Iyrxvslueh9800 [place] [phone]. Chrissy Frazier MONO # 0.7 103/ul Normal 0.3-0.8 [facility] Comment on above: Performed By: #### C BC ####[facility] Zgtqlannne2117 [place] [address]Dr. Tishrowan Frazier Monocytes/100 WBC (Bld) 5.3 % Normal 1.7-12.0 [facility] Comment on above: Performed By: #### C BC ####[facility] Yecovtsmog9248 [place] [address]Dr. Chrissy Frazier NEUT # 10.5 103/ul Critically high 1.4-6.5 [facility] Comment on above: Performed By: #### C BC ####[facility] Xlbihszmuq0457 [place] [phone]. Chrissy Frazier Neutrophils/100 WBC (Bld) 75.1 % Critically high 43.0-75.0 [facility] Comment on above: Performed By: #### C BC ####[facility] Blqjuzoqdo3236 [place] [phone]. Chrissy Frazier Platelet mean volume (Bld) [Entitic vol] 10.6 fL Normal 9.5-13.5 [facility] Comment on above: Performed By: #### C BC ####[facility] Hyuoqfxiot9881 [place] [phone]. Chrissy Freddie PLT 309 103/ul Normal 150-450 [facility] Comment on above: Performed By: #### C BC ####[facility] Zleiuaddan0289 [place] [address]Dr. Chrissy Frazier RBC 5.19 106/ul Normal 4.70-6.10 [facility] Comment on above: Performed By: #### C BC ####[facility] Fdrynqobvf0383 [place] [address]Dr. Chrissy Frazier WBC 14.0 103/ul Critically high 4.0-11.0 [facility] Comment on above: Performed By: #### C BC ####[facility] Nwqhutudfc7378 [place] [address]Dr. Chrissy Frazier PROF 14(COMP METB)on 022 Albumin [Mass/Vol] 4.0 g/dL Normal 3.4-5.0 [facility] Comment on above: Performed By: #### C MP ####[facility] Lrnqckvnwj216[address] [place], [place] [address]Dr. Chrissy Frazier Albumin/Globulin [Mass ratio] 1.1 {ratio} Normal [facility] Comment on above: Performed By: #### C MP ####[facility] S[address]icdmpyak5[address] [place], [place] [address]Dr. Chrissy Frazier ALP [Catalytic activity/Vol] 67 U/L Normal 46-116 [facility] Comment on above: Performed By: #### C MP ####[facility] Idzzzxuzgc7127[address] [place], [place] [address]Dr. Chrissy Frazier ALT [Catalytic activity/Vol] 40 U/L Normal 16-63 [facility] Comment on above: Performed By: #### C MP ####[facility] Alnrsztyzi546[address] [place], [place] [address]Dr. Chrissy Frazier Anion gap [Moles/Vol] 17.7 mmol/L Normal [facility] Comment on above: Performed By: #### C MP ####[facility] Aifkzsskaz7[address] [place], [place] [address]Dr. Chrissy Frazier AST [Catalytic activity/Vol] 27 U/L Normal 15-37 [facility] Comment on above: Performed By: #### C MP ####[facility] [address]hqykfdosv[address] [place], [place] [address]Dr. Chrissy Frazier Bilirubin [Mass/Vol] 0.8 mg/dL Normal 0.2-1.0 [facility] Comment on above: Performed By: #### C MP ####[facility] Tgompkqsxo7825 [place] [address]Dr. Chrissy Frazier Calcium [Mass/Vol] 8.8 mg/dL Normal 8.5-10.1 [facility] Comment on above: Performed By: #### C MP ####[facility] Ydlrjdjxhl4506 [place] [address]Dr. Chrissy Frazier Chloride [Moles/Vol] 105 mmol/L Normal 98-107 [facility] Comment on above: Performed By: #### C MP ####[facility] Ihtuixlbep[address] [place] [address]Dr. Chrissy Frazier CO2 [Moles/Vol] 16.5 mmol/L Critically low 21.0-32.0 [facility] Comment on above: Performed By: #### C MP ####[facility] Kpjqwyquqd[address] [place], [place] [address]Dr. Chrissy Frazier Creatinine [Mass/Vol] 1.02 mg/dL Normal 0.70-1.30 [facility] Comment on above: Performed By: #### C MP ####[facility] Hfdinajfdy[address] [place], [place] [address]Dr. Chrissy Frazier EGFR-AF ALBANIAN >60 Normal >=60 [facility] Comment on above: Performed By: #### C MP ####[facility] Qdrqjppbav5713 [place] [address]Dr. Chrissy Freddie EGFR-NON AF ALBANIAN >60 Normal >=60 [facility] Comment on above: Performed By: #### C MP ####[facility] Ottesnryeq4513[address] [place], [place] [address]Dr. Tishrowan Freddie Globulin (S) [Mass/Vol] 3.7 g/dL Normal [facility] Comment on above: Performed By: #### C MP ####[facility] Lgbiviotfi7472 [place] [address]Dr. Tishrowan Frazier Glucose [Mass/Vol] 106 mg/dL Normal 74-106 [facility] Comment on above: Performed By: #### C MP ####[facility] Ilrkjkyfol8785 [place] [address]Dr. Chrissy Freddie Potassium [Moles/Vol] 3.2 mmol/L Critically low 3.5-5.1 [facility] Comment on above: Performed By: #### C MP ####[facility] Afjlrhweon2149[address] [place], [place] [address]Dr. Chrissy Freddie Protein [Mass/Vol] 7.7 g/dL Normal 6.4-8.2 [facility] Comment on above: Performed By: #### C MP ####[facility] Dumaqdpvgb317[address] [place], [place] [address]Dr. Chrissy Frazier Sodium [Moles/Vol] 136 mmol/L Normal 136-145 [facility] Comment on above: Performed By: #### C MP ####[facility] Ihcewysymh66[address] [place], [place] [address]Dr. Chrissy Freddie Urea nitrogen [Mass/Vol] 10.0 mg/dL Normal 7.0-18.0 [facility] Comment on above: Performed By: #### C MP ####[facility] Uxifaxcgyv75[address] [place], [place] [address]Dr. Tishrowan Freddie Urea nitrogen/Creatinine [Mass ratio] 9.8 mg/mg Normal [facility] Comment on above: Performed By: #### C MP ####[facility] Lvrbgavrfq8611[address] [place], [place] [address]Dr. Chrissy Freddie CBC AUTO DIFFon 07-03-2022 BASO # 0.1 103/ul Normal 0.0-0.1 [facility] Comment on above: Performed By: #### C BC ####[facility] Tweetlhcqf3456[address] [place], [place] [address]Dr. Chrissy Frazier Basophils/100 WBC (Bld) 0.5 % Normal 0.2-2.0 [facility] Comment on above: Performed By: #### C BC ####[facility] Dullfzwrkm075[address] [place], [place] [address]Dr. Chrissy Frazier EO # 0.1 103/ul Normal 0.0-0.7 [facility] Comment on above: Performed By: #### C BC ####[facility] Vtjdrhdkkm5821 [place] [address]Dr. Chrissy Frazier Eosinophils/100 WBC (Bld) 1.3 % Normal 0.9-7.0 [facility] Comment on above: Performed By: #### C BC ####[facility] Simxaqwktv8736 [place] [address]Dr. Chrissy Frazier Erythrocyte distribution width (RBC) [Ratio] 14.2 % Normal 11.0-15.0 [facility] Comment on above: Performed By: #### C BC ####[facility] Dsncfwuizi3035[address] [place], [place] [address]Dr. Chrissy Farzier Hematocrit (Bld) [Volume fraction] 41.7 % Critically low 42.0-54.0 [facility] Comment on above: Performed By: #### C BC ####[facility] Jvlngykbwr1046[address] [place], [place] [address]Dr. Chrissy Frazier Hemoglobin (Bld) [Mass/Vol] 13.6 g/dL Critically low 14.0-18.0 [facility] Comment on above: Performed By: #### C BC ####[facility] Xfexbmzfsl099[address] [place], [place] [address]Dr. Chrissy Frazier IG # 0.04 10e3/ul Critically high 0.00-0.03 The [facility] Comment on above: Performed By: #### C BC ####[facility] Ayabkaefpc1467 [place] [address]Dr. Chrissy Frazier IG % 0.4 % Normal 0.0-0.5 [facility] Comment on above: Performed By: #### C BC ####[facility] Lizddzmmfl115[address] [place], [place] [address]Dr. Chrissy Frazier LYMPH # 3.5 103/ul Normal 1.2-3.8 [facility] Comment on above: Performed By: #### C BC ####[facility] Dfbvqcmkvs9795[address] [place], [place] [address]Dr. Chrissy Frazier Lymphocytes/100 WBC (Bld) 33.5 % Normal 20.5-60.0 [facility] Comment on above: Performed By: #### C BC ####[facility] Medslfmhxi7832 [place] [address]Dr. Chrissy Frazier MANUAL DIFF REQ NO Normal [facility] Comment on above: Performed By: #### C BC ####[facility] Imwwsvdgzq3336 [place] [address]Dr. Chrissy Frazier MCH (RBC) [Entitic mass] 27.9 pg Normal 25.9-34.0 [facility] Comment on above: Performed By: #### C BC ####[facility] Awsgznhmdn9011 [place] [address]Dr. Chrissy Frazier MCHC (RBC) [Mass/Vol] 32.6 g/dL Normal 29.9-35.2 [facility] Comment on above: Performed By: #### C BC ####[facility] Ijbhunfqjd9157 [place] [address]Dr. Chrissy Frazier MCV (RBC) [Entitic vol] 85.6 fL Normal 80.0-94.0 [facility] Comment on above: Performed By: #### C BC ####[facility] Gvunkfpuvq5333 [place] [address]Dr. Chrissy Frazier MONO # 0.7 103/ul Normal 0.3-0.8 [facility] Comment on above: Performed By: #### C BC ####[facility] Cvnhpcgybn2728 [place] [address]Dr. Chrissy Frazier Monocytes/100 WBC (Bld) 6.5 % Normal 1.7-12.0 [facility] Comment on above: Performed By: #### C BC ####[facility] Qzqnbzlbvb0925 [place] [address]DrNancy Frazier NEUT # 6.1 103/ul Normal 1.4-6.5 [facility] Comment on above: Performed By: #### C BC ####[facility] Xxwenhbozg797[address] [place], [place] [address]Dr. Chrissy Frazier Neutrophils/100 WBC (Bld) 57.8 % Normal 43.0-75.0 [facility] Comment on above: Performed By: #### C BC ####[facility] Qwbhqtfaxd8601 [place] [address]Dr. Tishrowan Freddie Platelet mean volume (Bld) [Entitic vol] 10.4 fL Normal 9.5-13.5 [facility] Comment on above: Performed By: #### C BC ####[facility] Wqvsketazu8230 [place] [address]DrNancy Frazier PLT 288 103/ul Normal 150-450 [facility] Comment on above: Performed By: #### C BC ####[facility] Lsfygqejye6463 [place] [address]DrNancy Frazier RBC 4.87 106/ul Normal 4.70-6.10 [facility] Comment on above: Performed By: #### C BC ####[facility] Vswpnqgfmo8088[address] [place], [place] [address]DrNancy Frazier WBC 10.5 103/ul Normal 4.0-11.0 [facility] Comment on above: Performed By: #### C BC ####[facility] Feoxeeofnb9077[address] [place], [place] [address]DrNancy Frazier PROF 14(COMP METB)on 022 Albumin [Mass/Vol] 3.6 g/dL Normal 3.4-5.0 [facility] Comment on above: Performed By: #### C MP ####[facility] Zeiwqhxmyy5234 [place] [address]DrNancy Frazier Albumin/Globulin [Mass ratio] 1.1 {ratio} Normal [facility] Comment on above: Performed By: #### C MP ####[facility] Nwwmdgpobg7297 [place] [address]DrNancy Frazier ALP [Catalytic activity/Vol] 58 U/L Normal 46-116 [facility] Comment on above: Performed By: #### C MP ####[facility] Pjwqtitpdo566[address] [place], [place] [address]Dr. Yirowan Frazier ALT [Catalytic activity/Vol] 30 U/L Normal 16-63 [facility] Comment on above: Performed By: #### C MP ####[facility] Wqtphmkwiw5794 [place] [address]Dr. Tishrowan Freddie Anion gap [Moles/Vol] 14.5 mmol/L Normal [facility] Comment on above: Performed By: #### C MP ####[facility] Iwawyyhrtr94[address] [place], [place] [address]Dr. Chrissy Freddie AST [Catalytic activity/Vol] 17 U/L Normal 15-37 [facility] Comment on above: Performed By: #### C MP ####[facility] Zofyamwdno7204[address] [place], [place] [address]Dr. Chrissy Frazier Bilirubin [Mass/Vol] 0.6 mg/dL Normal 0.2-1.0 [facility] Comment on above: Performed By: #### C MP ####[facility] Gntiatkhsv5424[address] [place], [place] [address]Dr. Chrissy Frazier Calcium [Mass/Vol] 8.4 mg/dL Critically low 8.5-10.1 [facility] Comment on above: Performed By: #### C MP ####[facility] Nmmcwsfdyr030[address] [place], [place] [address]Dr. Chrissy Frazier Chloride [Moles/Vol] 106 mmol/L Normal 98-107 [facility] Comment on above: Performed By: #### C MP ####[facility] Bnrtimkxev040360 [address] [place], [place] [address]Dr. Chrissy Frazier CO2 [Moles/Vol] 22.6 mmol/L Normal 21.0-32.0 [facility] Comment on above: Performed By: #### C MP ####[facility] Onxmqrxxbl3932[address] [place], [place] [address]Dr. Chrissy Frazier Creatinine [Mass/Vol] 1.08 mg/dL Normal 0.70-1.30 [facility] Comment on above: Performed By: #### C MP ####[facility] Mlzsgfjymk1342[address] [place], [place] [address]Dr. Chrissy Frazier EGFR-AF ALBANIAN >60 Normal >=60 [facility] Comment on above: Performed By: #### C MP ####[facility] Pqijoxjwsi2131 [place], [place] [address]Nm. Chrissy Frazier EGFR-NON AF ALBANIAN >60 Normal >=60 [facility] Comment on above: Performed By: #### C MP ####[facility] Bpilybcuhf4432 [place], [place] [address]Ge. Chrissy Frazier Globulin (S) [Mass/Vol] 3.3 g/dL Normal [facility] Comment on above: Performed By: #### C MP ####[facility] Offgtyjlqy9186 [place] [address]Dr. Chrissy Frazier Glucose [Mass/Vol] 94 mg/dL Normal 74-106 [facility] Comment on above: Performed By: #### C MP ####[facility] Ljlvaclemp6326 [place] [address]Dr. Chrissy Frazier Potassium [Moles/Vol] 3.1 mmol/L Critically low 3.5-5.1 [facility] Comment on above: Performed By: #### C MP ####[facility] Xowhocuulf8593 [place] [address]Dr. Chrissy Frazier Protein [Mass/Vol] 6.9 g/dL Normal 6.4-8.2 [facility] Comment on above: Performed By: #### C MP ####[facility] Ogykgtuaff3495 [place] [address]Dr. Chrissy Frazier Sodium [Moles/Vol] 140 mmol/L Normal 136-145 [facility] Comment on above: Performed By: #### C MP ####[facility] Wewrbroxvr0443 [place] [address]Dr. Chrissy Frazier Urea nitrogen [Mass/Vol] 10.0 mg/dL Normal 7.0-18.0 [facility] Comment on above: Performed By: #### C MP ####[facility] Fyjeipebvn1529 [place] [address]Dr. Chrissy Frazier Urea nitrogen/Creatinine [Mass ratio] 9.3 mg/mg Normal [facility] Comment on above: Performed By: #### C MP ####[facility] Sqboqgjljt6442[address] [place], [place] [address]Dr. Chrissy Frazier CBC AUTO DIFFon 07-02-2022 BASO # 0.0 103/ul Normal 0.0-0.1 [facility] Comment on above: Performed By: #### C BC ####[facility] Egidzvlaqx6616[address] [place], [place] [address]Dr. Chrissy Frazier Basophils/100 WBC (Bld) 0.2 % Normal 0.2-2.0 [facility] Comment on above: Performed By: #### C BC ####[facility] Jcpkdfhfhs8593[address] [place], [place] [address]Dr. Chrissy Frazier EO # 0.0 103/ul Normal 0.0-0.7 [facility] Comment on above: Performed By: #### C BC ####[facility] Dpkrekdcax3049[address] [place], [place] [address]Dr. Chrissy Frazier Eosinophils/100 WBC (Bld) 0.0 % Critically low 0.9-7.0 [facility] Comment on above: Performed By: #### C BC ####[facility] Yjwvaprwiz1980[address] [place], [place] [address]Dr. Chrissy Frazier Erythrocyte distribution width (RBC) [Ratio] 14.2 % Normal 11.0-15.0 [facility] Comment on above: Performed By: #### C BC ####[facility] Xddvjishhn8635[address] [place], [place] [address]Dr. Chrissy Frazier Hematocrit (Bld) [Volume fraction] 46.2 % Normal 42.0-54.0 [facility] Comment on above: Performed By: #### C BC ####[facility] Ftosguqnkt9770[address] [place], [place] [address]Dr. Chrissy Frazier Hemoglobin (Bld) [Mass/Vol] 15.2 g/dL Normal 14.0-18.0 [facility] Comment on above: Performed By: #### C BC ####[facility] Knpbfqmbbf0553[address] [place], [place] [address]Dr. Chrissy Frazier IG # 0.07 10e3/ul Critically high 0.00-0.03 [facility] Comment on above: Performed By: #### C BC ####[facility] Wcjoivlmkz5520 [place] [id number] Chrissy Freddie IG % 0.4 % Normal 0.0-0.5 [facility] Comment on above: Performed By: #### C BC ####[facility] Ynscxhuwlw2379 [place] [address]DrNancy Chrissy Freddie LYMPH # 2.8 103/ul Normal 1.2-3.8 [facility] Comment on above: Performed By: #### C BC ####[facility] Fizrwrwnqd030[address] [place], [place] [address]DrNancy Chrissy Freddie Lymphocytes/100 WBC (Bld) 16.7 % Critically low 20.5-60.0 [facility] Comment on above: Performed By: #### C BC ####[facility] Phfyykyhpk7430[address] [place], [place] [address]DrNancy Chrissy Freddie MANUAL DIFF REQ NO Normal [facility] Comment on above: Performed By: #### C BC ####[facility] Xasjgwmyhz2255[address] [place], [place] [address]DrNancy Chrissy Freddie MCH (RBC) [Entitic mass] 28.3 pg Normal 25.9-34.0 [facility] Comment on above: Performed By: #### C BC ####[facility] Bmcbfmjhkt3897 [place] [address]DrNancy Chrissy Freddie MCHC (RBC) [Mass/Vol] 32.9 g/dL Normal 29.9-35.2 [facility] Comment on above: Performed By: #### C BC ####[facility] Yrezsmnaky3387[address] [place], [place] [address]DrNancy Winstonrowan Freddie MCV (RBC) [Entitic vol] 86.0 fL Normal 80.0-94.0 [facility] Comment on above: Performed By: #### C BC ####[facility] Pmojgwkbwd480[address] [place], [place] [address]DrNancy Frazier MONO # 0.9 103/ul Critically high 0.3-0.8 [facility] Comment on above: Performed By: #### C BC ####[facility] Rmoiwuzygd1958 [place] [id number]. Chrissy Frazier Monocytes/100 WBC (Bld) 5.1 % Normal 1.7-12.0 [facility] Comment on above: Performed By: #### C BC ####[facility] Uueafdrpjo6597 [place] [id number]. Chrissy Frazier NEUT # 13.2 103/ul Critically high 1.4-6.5 [facility] Comment on above: Performed By: #### C BC ####[facility] Zoxozbcmzs8007 [place] [address]Dr. Chrissy Frazier Neutrophils/100 WBC (Bld) 77.6 % Critically high 43.0-75.0 [facility] Comment on above: Performed By: #### C BC ####[facility] Wxbbadufwm0766[address] [place], [place] [address]Dr. Chrissy Frazier Platelet mean volume (Bld) [Entitic vol] 11.6 fL Normal 9.5-13.5 [facility] Comment on above: Performed By: #### C BC ####[facility] Ykzvsushnp6940 [place] [address]Dr. Chrissy Frazier PLT 317 103/ul Normal 150-450 [facility] Comment on above: Performed By: #### C BC ####[facility] Ovjcsqayyh8[address] [place], [place] [address]Dr. Chrissy Frazier RBC 5.37 106/ul Normal 4.70-6.10 [facility] Comment on above: Performed By: #### C BC ####[facility] Bqzligpyza5608 [place] [phone]. Chrissy Frazier WBC 17.1 103/ul Critically high 4.0-11.0 [facility] Comment on above: Performed By: #### C BC ####[facility] Bulkuhjzei6227 [place] [phone]. Chrissy Frazier CT ABD/PELV W MARGOTHon 07-02-[address] ABD/PELV W CON Normal [facility] H PYLORI ANTIBODY IGGon 06-21 H. PYLORI IGG ABS 0.13 Index Value Normal 0.00-0.79 [facility] Comment on above: Result Comment: Nega tive <0.80 Equivocal 0.80 - 0.89 Positive >0.89 Performed By: #### H PYLLC ####[facility] Exjmopgkwj2251 [place] [address]Dr. Chrissy Frazier PROF 14(COMP METB)on 022 Albumin [Mass/Vol] 3.8 g/dL Normal 3.4-5.0 [facility] Comment on above: Performed By: #### C MP ####[facility] Breplebcia446[address] [place], [place] [address]Dr. Chrissy Frazier Albumin/Globulin [Mass ratio] 1.0 {ratio} Normal [facility] Comment on above: Performed By: #### C MP ####[facility] Urqsywmhrz6008[address] [place], [place] [address]Dr. Chrissy Frazier ALP [Catalytic activity/Vol] 68 U/L Normal 46-116 [facility] Comment on above: Performed By: #### C MP ####[facility] Mpehnhobus9718[address] [place], [place] [address]Dr. Chrissy Frazier ALT [Catalytic activity/Vol] 34 U/L Normal 16-63 [facility] Comment on above: Performed By: #### C MP ####[facility] Boiwpsqgat7256[address] [place], [place] [address]Dr. Chrissy Frazier Anion gap [Moles/Vol] 17.9 mmol/L Normal [facility] Comment on above: Performed By: #### C MP ####[facility] Vwxiglugdl8574[address] [place], [place] [address]Dr. Chrissy Frazier AST [Catalytic activity/Vol] 24 U/L Normal 15-37 [facility] Comment on above: Performed By: #### C MP ####[facility] Puhvgpeuiv5167[address] [place], [place] [address]Dr. Chrissy Frazier Bilirubin [Mass/Vol] 0.6 mg/dL Normal 0.2-1.0 [facility] Comment on above: Performed By: #### C MP ####[facility] Esrsogquqs8177 [place] [address]Dr. Chrissy Frazier Calcium [Mass/Vol] 8.8 mg/dL Normal 8.5-10.1 [facility] Comment on above: Performed By: #### C MP ####[facility] Jiwfvcpnqm9292 [place] [address]Dr. Chrissy Frazier Chloride [Moles/Vol] 105 mmol/L Normal 98-107 [facility] Comment on above: Performed By: #### C MP ####[facility] Msziqzjfez4799[address] [place], [place] [address]Dr. Chrissy Frazier CO2 [Moles/Vol] 18.8 mmol/L Critically low 21.0-32.0 [facility] Comment on above: Performed By: #### C MP ####[facility] Uoqslyvoon8636[address] [place], [place] [address]Dr. Chrissy Frazier Creatinine [Mass/Vol] 1.15 mg/dL Normal 0.70-1.30 [facility] Comment on above: Performed By: #### C MP ####[facility] Vjwgxyypxo7450[address] [place], [place] [address]Dr. Chrissy Frazier EGFR-AF ALBANIAN >60 Normal >=60 [facility] Comment on above: Performed By: #### C MP ####[facility] Rblurgixry5864[address] [place], [place] [address]Dr. Chrissy Freddie EGFR-NON AF ALBANIAN >60 Normal >=60 [facility] Comment on above: Performed By: #### C MP ####[facility] Geivtbrick1134[address] [place], [place] [address]Dr. Chrissy Freddie Globulin (S) [Mass/Vol] 3.9 g/dL Normal [facility] Comment on above: Performed By: #### C MP ####[facility] Ovdxhnihhu7495[address] [place], [place] [address]Dr. Chrissy Frazier Glucose [Mass/Vol] 124 mg/dL Critically high 74-106 [facility] Comment on above: Performed By: #### C MP ####[facility] Qiqhfftbgi1307 [place] [address]Dr. Chrissy Frazier Potassium [Moles/Vol] 3.7 mmol/L Normal 3.5-5.1 [facility] Comment on above: Performed By: #### C MP ####[facility] Qbsrvymadm7972 [place] [address]Dr. Chrissy Freddie Protein [Mass/Vol] 7.7 g/dL Normal 6.4-8.2 [facility] Comment on above: Performed By: #### C MP ####[facility] Eaxqcykrgs7997[address] [place], [place] [address]Dr. Tishrowan Frazier Sodium [Moles/Vol] 138 mmol/L Normal 136-145 [facility] Comment on above: Performed By: #### C MP ####[facility] Avnlbbfhww119[address] [place], [place] [address]Dr. Tishrowan Frazier Urea nitrogen [Mass/Vol] 9.0 mg/dL Normal 7.0-18.0 [facility] Comment on above: Performed By: #### C MP ####[facility] Eaaujjotra6[address] [place], [place] [address]Dr. Chrissy Freddie Urea nitrogen/Creatinine [Mass ratio] 7.8 mg/mg Normal [facility] Comment on above: Performed By: #### C MP ####[facility] Ybfjwlxnkx0865[address] [place], [place] [address]Dr. Chrissy Freddie AMMONIAon 07-01-2022 Ammonia (P) [Moles/Vol] 14 umol/L Normal 11-32 [facility] Comment on above: Performed By: #### A MM ####[facility] Mxcymjwolf8587[address] [place], [place] [address]Dr. Tishrowan Frazier AMYLASEon 07-01-2022 Amylase [Catalytic activity/Vol] 32 U/L Normal 25-115 [facility] Comment on above: Performed By: #### A MY, PHOS, CMP, LIPA ####[facility] Bfultbigor6199 [place] [address]Dr. Tishrowan Frazier CBC AUTO DIFFon 07-01-2022 BASO # 0.1 103/ul Normal 0.0-0.1 [facility] Comment on above: Performed By: #### C BC ####[facility] Hvmivqwxco9016 [place] [address]Dr. Chrissy Frazier Basophils/100 WBC (Bld) 0.4 % Normal 0.2-2.0 [facility] Comment on above: Performed By: #### C BC ####[facility] Mlddkryyyk[address] [place], [place] [address]Dr. Chrissy Frazier EO # 0.2 103/ul Normal 0.0-0.7 [facility] Comment on above: Performed By: #### C BC ####[facility] [facility] [id number] [place], [place] [address]Dr. Tishrowan Freddie Eosinophils/100 WBC (Bld) 0.9 % Normal 0.9-7.0 [facility] Comment on above: Performed By: #### C BC ####[facility] Quvvkkybjp99[address] [place], [place] [address]Dr. Chrissy Frazier Erythrocyte distribution width (RBC) [Ratio] 13.8 % Normal 11.0-15.0 [facility] Comment on above: Performed By: #### C BC ####[facility] Onqahcgeik[address] [place], [place] [address]Dr. Tishrowan Frazier Hematocrit (Bld) [Volume fraction] 46.3 % Normal 42.0-54.0 [facility] Comment on above: Performed By: #### C BC ####[facility] Nkiiemobou[address] [place], [place] [address]Dr. Tishrowan Frazier Hemoglobin (Bld) [Mass/Vol] 15.4 g/dL Normal 14.0-18.0 [facility] Comment on above: Performed By: #### C BC ####[facility] Kxhwddbhea[address] [place], [place] [address]Dr. Chrissy Frazier IG # 0.05 10e3/ul Critically high 0.00-0.03 [facility] Comment on above: Performed By: #### C BC ####[facility] Mpxibniiez[address] [place] [address]Dr. Chrissy Frazier IG % 0.3 % Normal 0.0-0.5 [facility] Comment on above: Performed By: #### C BC ####[facility] Uisjjcnlcf9[address] [place], [place] [address]Dr. Chrissy Frazier LYMPH # 2.0 103/ul Normal 1.2-3.8 [facility] Comment on above: Performed By: #### C BC ####[facility] Lbxndfqran2372[address] [place], [place] [address]Dr. Chrissy Frazier Lymphocytes/100 WBC (Bld) 12.9 % Critically low 20.5-60.0 [facility] Comment on above: Performed By: #### C BC ####[facility] Uwntyiubuz5[address] [place], [place] [address]DrNancy Frazier MANUAL DIFF REQ NO Normal [facility] Comment on above: Performed By: #### C BC ####[facility] Sptcuaoiyy65[address] [place], [place] [address]Dr. Tishrowan Frazier MCH (RBC) [Entitic mass] 28.6 pg Normal 25.9-34.0 [facility] Comment on above: Performed By: #### C BC ####[facility] F[address]jvvwferp[address] [place], [place] [address]Dr. Chrissy Freddie MCHC (RBC) [Mass/Vol] 33.3 g/dL Normal 29.9-35.2 [facility] Comment on above: Performed By: #### C BC ####[facility] Accokdnebr[address] [place], [place] [address]DrNancy Frazier MCV (RBC) [Entitic vol] 86.1 fL Normal 80.0-94.0 [facility] Comment on above: Performed By: #### C BC ####[facility] Xsiyqxsrfp6[address] [place], [place] [address]DrNancy Frazier MONO # 0.5 103/ul Normal 0.3-0.8 [facility] Comment on above: Performed By: #### C BC ####[facility] Esmitctcmi0665[address] [place], [place] [address]Dr. Chrissy Frazier Monocytes/100 WBC (Bld) 3.0 % Normal 1.7-12.0 [facility] Comment on above: Performed By: #### C BC ####[facility] Xqunsenmel50[address] [place] [address]Dr. Chrissy Frazier NEUT # 13.0 103/ul Critically high 1.4-6.5 [facility] Comment on above: Performed By: #### C BC ####[facility] Hlnhihuyqy9[address] [place] [address]Dr. Chrissy Frazier Neutrophils/100 WBC (Bld) 82.5 % Critically high 43.0-75.0 [facility] Comment on above: Performed By: #### C BC ####[facility] Rhbxroqxpy9067[address] [place], [place] [address]Dr. Chrissy Frazier Platelet mean volume (Bld) [Entitic vol] 10.0 fL Normal 9.5-13.5 [facility] Comment on above: Performed By: #### C BC ####[facility] Ulfhlcpoyv[address] [place], [place] [address]Dr. Chrissy Frazier PLT 370 103/ul Normal 150-450 [facility] Comment on above: Performed By: #### C BC ####[facility] Mrtekzutpn5270[address] [place], [place] [address]Dr. Chrissy Frazier RBC 5.38 106/ul Normal 4.70-6.10 [facility] Comment on above: Performed By: #### C BC ####[facility] Xljuowtnku8256[address] [place], [place] [address]Dr. Chrissy Frazier WBC 15.8 103/ul Critically high 4.0-11.0 [facility] Comment on above: Performed By: #### C BC ####[facility] Gaaretcvyn40[address] [place] [address]Dr. Chrissy Frazier CULTURE URINEon 07-01-2022 CULTURE URINE Culture Observations: No growth Normal [facility] Comment on above: Performed By: #### U RCX ####[facility] Femxifjosl9517[address] [place], [place] [address]Dr. Chrissy Frazier Covid-19 PCR (CVDTB)on 06-21 SARS-CoV-2 (COVID-19) RNA RHIANNON+probe Ql (Unsp spec) Not detected Normal NOT DETECTED [facility] Comment on above: Result Comment: When [...] for this test is supported by the Sales Representative Education Courses of Health and Human Service's declaration that [...] be used). Performed By: #### C VDTBH ####[facility] Cavcmvgrig34[address] [place] [address]Dr. Chrissy Freddie DRUG SCREEN RAPID (URINE)on 07-01-2022 AMP Negative Normal NEGATIVE [facility] Comment on above: Performed By: #### D REYES UAMIC ####[facility] Sqkafuolfm[address] [place] [id number]. Chrissy Frazier BAR Negative Normal NEGATIVE [facility] Comment on above: Performed By: #### D CHAYAD, UAMIC ####[facility] Askhzjwfvq[address] [place] [id number]. Chrissy Frazier BUP Negative Normal NEGATIVE [facility] Comment on above: Performed By: #### D REYES UAMIC ####[facility] Oqdkpijvkn26[address] [place] [address]Dr. Tishrowan Frazier BZO Negative Normal NEGATIVE [facility] Comment on above: Performed By: #### D REYES UAMIC ####[facility] Ueuoikvlgk8454 [place] [address]Dr. Chrissy Frazier LAUREN Negative Normal NEGATIVE [facility] Comment on above: Performed By: #### Amelie CHAMBERS UAMIC ####[facility] Xrlmevjyak11[address] [place], [place] [address]Dr. Chrissy Frazier CUT-OFFS SEE BELOW Normal [facility] Comment on above: Result Comment: AMP [...] ng/mL Performed By: #### Amelie CHAMBERS UAMIC ####[facility] Oixzuyhlir7277[address] [place], [place] [address]Dr. Chrissy Frazier DRUG CUT HEADER DRUG CLASS TEST SYSTEM CUT-OFF CONCENTRATIONS ARE FOLLOWS: Normal [facility] Comment on above: Performed By: #### Amelie CHAMBERS UAMIC ####[facility] Wuomsbwyau18[address] [place], [place] [address]Dr. Chrissy Frazier mAMP Negative Normal NEGATIVE [facility] Comment on above: Performed By: #### Amelie CHAMBERS UAMIC ####[facility] Mligupqsbn8146[address] [place], [place] [address]Dr. Chrissy Frazier MTD Negative Normal NEGATIVE [facility] Comment on above: Performed By: #### Amelie CHAMBERS UAMIC ####[facility] Dswbymryiu2535[address] [place], [place] [address]Dr. Chrissy Frazier OPI Negative Normal NEGATIVE [facility] Comment on above: Performed By: #### Amelie CHAMBERS UAMIC ####[facility] Smfyyxxagm9044[address] [place], [place] [address]Dr. Chrissy Frazier OXY Negative Normal NEGATIVE [facility] Comment on above: Performed By: #### D REYES, UAMIC ####[facility] Bssldqsfuq6[address] [place] [address]Dr. Chrissy Frazier PCP Negative Normal NEGATIVE [facility] Comment on above: Performed By: #### D REYSE, UAMIC ####[facility] Fotmbxdghw6442 [place] [address]Dr. Chrissy Frazier PPX Negative Normal NEGATIVE [facility] Comment on above: Performed By: #### D REYES, UAMIC ####[facility] Qlmhiwcumc2322 [place] [address]Dr. Chrissy Frazier TCA Negative Normal NEGATIVE [facility] Comment on above: Performed By: #### D REYES UAMIC ####[facility] Hoviwpnwqx3177[address] [place], [place] [address]Dr. Chrissy Frazier THC Positive Abnormal NEGATIVE [facility] Comment on above: Performed By: #### D REYES UAMIC ####[facility] Igkgnsdzgh6925[address] [place], [place] [address]Dr. Chrissy Frazier LACTATE/LACTIC ACIDon 2021 Lactate [Moles/Vol] 4.4 mmol/L Critically high 0.4-1.9 [facility] Comment on above: Performed By: #### L ACT ####[facility] Ghwfuiloic0440[address] [place], [place] [address]Dr. Chrissy Frazier LIPASEon 07-01-2022 Lipase [Catalytic activity/Vol] 57.0 U/L Critically low 73.0-393.0 [facility] Comment on above: Performed By: #### A MY, PHOS, CMP, LIPA ####[facility] Ufxqebjcsc2592[address] [place], [place] [address]Dr. Chrissy Frazier PHOSPHORUSon 07-01-2022 Phosphate [Mass/Vol] 1.4 mg/dL Critically low 2.6-4.7 [facility] Comment on above: Performed By: #### A MY, PHOS, CMP, LIPA ####[facility] Wemivluksb4388[address] [place], [place] [address]Dr. Chrissy Frazier PROF 14(COMP METB)on 022 Albumin [Mass/Vol] 4.2 g/dL Normal 3.4-5.0 [facility] Comment on above: Performed By: #### A MY, PHOS, CMP, LIPA ####[facility] Ktuqtrjeql45[address] [place] [address]Dr. Chrissy Frazier Albumin/Globulin [Mass ratio] 1.1 {ratio} Normal [facility] Comment on above: Performed By: #### A MY, PHOS, CMP, LIPA ####[facility] Jfczglqwtf[address] [place] [address]Dr. Chrissy Frazier ALP [Catalytic activity/Vol] 73 U/L Normal 46-116 [facility] Comment on above: Performed By: #### A MY, PHOS, CMP, LIPA ####[facility] Dpplfzlsxo7[address] [place] [address]Dr. Chrissy Frazier ALT [Catalytic activity/Vol] 43 U/L Normal 16-63 [facility] Comment on above: Performed By: #### A MY, PHOS, CMP, LIPA ####[facility] Ckmnrelzxe4195 [place] [address]Dr. Chrissy Frazier Anion gap [Moles/Vol] 19.0 mmol/L Normal [facility] Comment on above: Performed By: #### A MY, PHOS, CMP, LIPA ####[facility] Bkotwevvdx4992 [place] [address]Dr. Chrissy Frazier AST [Catalytic activity/Vol] 21 U/L Normal 15-37 [facility] Comment on above: Performed By: #### A MY, PHOS, CMP, LIPA ####[facility] Sgmuoruskx5608 [place] [address]Dr. Chrissy Frazier Bilirubin [Mass/Vol] 0.5 mg/dL Normal 0.2-1.0 [facility] Comment on above: Performed By: #### A MY, PHOS, CMP, LIPA ####[facility] Wrwprbtvbq3029 [place] [address]Dr. Chrissy Frazier Calcium [Mass/Vol] 9.3 mg/dL Normal 8.5-10.1 [facility] Comment on above: Performed By: #### A MY, PHOS, CMP, LIPA ####[facility] Sqaswaksbw037[address] [place] [address]Dr. Chrissy Frazier Chloride [Moles/Vol] 103 mmol/L Normal 98-107 [facility] Comment on above: Performed By: #### A MY, PHOS, CMP, LIPA ####[facility] Tzccgqmrfd4386 [place] [address]Dr. Chrissy Frazier CO2 [Moles/Vol] 21.1 mmol/L Normal 21.0-32.0 [facility] Comment on above: Performed By: #### A MY, PHOS, CMP, LIPA ####[facility] Ouzmkkhasp[address] [place], [place] [address]Dr. Chrissy Frazier Creatinine [Mass/Vol] 1.44 mg/dL Critically high 0.70-1.30 [facility] Comment on above: Performed By: #### A MY, PHOS, CMP, LIPA ####[facility] Upvtnpvsqw4232[address] [place], [place] [address]Dr. Chrissy Frazier EGFR-AF ALBANIAN >60 Normal >=60 [facility] Comment on above: Performed By: #### A MY, PHOS, CMP, LIPA ####[facility] Kspdjdweqs28[address] [place] [address]Dr. Chrissy Frazier EGFR-NON AF ALBANIAN 57 mL/min/1.73m2 Critically low >=60 [facility] Comment on above: Performed By: #### A MY, PHOS, CMP, LIPA ####[facility] Zinolcalay[address] [place] [address]Dr. Chrissy Frazier Globulin (S) [Mass/Vol] 3.9 g/dL Normal [facility] Comment on above: Performed By: #### A MY, PHOS, CMP, LIPA ####[facility] Zhklxierbh4147 [place] [address]Dr. Chrissy Frazier Glucose [Mass/Vol] 148 mg/dL Critically high 74-106 [facility] Comment on above: Performed By: #### A MY, PHOS, CMP, LIPA ####[facility] Aefmmfjizr7783 [place] [address]Dr. Chrissy Frazier Potassium [Moles/Vol] 3.1 mmol/L Critically low 3.5-5.1 [facility] Comment on above: Performed By: #### A MY, PHOS, CMP, LIPA ####[facility] Xmamxryuxj8156 [place] [address]Dr. Chrissy Frazier Protein [Mass/Vol] 8.1 g/dL Normal 6.4-8.2 [facility] Comment on above: Performed By: #### A MY, PHOS, CMP, LIPA ####[facility] Wzpntiqeeu4649 [place] [address]Dr. Chrissy Frazier Sodium [Moles/Vol] 140 mmol/L Normal 136-145 [facility] Comment on above: Performed By: #### A MY, PHOS, CMP, LIPA ####[facility] Inznksnqum6309 [place] [address]Dr. Chrissy Frazier Urea nitrogen [Mass/Vol] 10.0 mg/dL Normal 7.0-18.0 [facility] Comment on above: Performed By: #### A MY, PHOS, CMP, LIPA ####[facility] Mpbctrsjjx6484 [place] [address]Dr. Chrissy Frazier Urea nitrogen/Creatinine [Mass ratio] 6.9 mg/mg Normal [facility] Comment on above: Performed By: #### A MY, PHOS, CMP, LIPA ####[facility] Ofpijfexbm1334 [place] [address]Dr. Chrissy Freddie UA RANDOM W/MICROSCOPICon BACTERIA TRACE Abnormal NONE SEEN [facility] Comment on above: Performed By: #### D REYES UAMIC ####[facility] Cbysoczdfi2128 [place] [address]Dr. Tishrowan Freddie Bilirubin Ql (U) Negative Normal NEGATIVE [facility] Comment on above: Performed By: #### D REYES UAMIC ####[facility] Ccrgpavbff1998 [place] [address]Dr. Chrissy Frazier CAST NONE SEEN Normal NONE SEEN [facility] Comment on above: Performed By: #### Amelie CHAMBERS UAMIC ####[facility] Ftvwqgxyid[address] [place], [place] [address]Dr. Chrissy Frazier Clarity (U) CLEAR Normal CLEAR [facility] Comment on above: Performed By: #### Amelie CHAMBERS UAMIC ####[facility] Nysjjalrfi9135 [place] [address]Dr. Chrissy Frazier Color (U) YELLOW Normal YELLOW [facility] Comment on above: Performed By: #### Amelie CHAMBERS UAMIC ####[facility] Vqvqtbpihc7[address] [place], [place] [address]Dr. Chrissy Frazier Crystals LM Nom (Urine sed) NONE SEEN Normal NONE SEEN [facility] Comment on above: Performed By: #### Amelie CHAMBERS UAMIC ####[facility] Gzwzdgcmwt5330[address] [place], [place] [address]Dr. Chrissy Frazier Epithelial cells LM Ql (Urine sed) RARE Normal NONE SEEN /RARE [facility] Comment on above: Performed By: #### Amelie CHAMBERS UAMIC ####[facility] Iwyvjrxobi1838[address] [place], [place] [address]Dr. Chrissy Frazier Glucose Ql (U) Negative Normal NEGATIVE The [facility] Comment on above: Performed By: #### Amelie CHAMBERS UAMIC ####[facility] Ddmshejize1055[address] [place], [place] [address]Dr. Chrissy Frazier Hemoglobin Ql (U) Negative Normal NEGATIVE The [facility] Comment on above: Performed By: #### Amelie CHAMBERS UAMIC ####[facility] Npmgyrcbtk2212[address] [place], [place] [address]Dr. Chrissy Frazier Ketones Ql (U) 40 mg/dl Abnormal NEGATIVE [facility] Comment on above: Performed By: #### Amelie CHAMBERS UAMIC ####[facility] Pttgvjdfyp2044[address] [place], [place] [address]Dr. Chrissy Frazier LEUKOCYTES Negative Normal NEGATIVE [facility] Comment on above: Performed By: #### Amelie CHAMBERS, UAMIC ####[facility] Zdjkldwmeu4625 [place] [address]Dr. Chrissy Frazier MUCOUS MODERATE Abnormal NONE SEEN [facility] Comment on above: Performed By: #### Amelie CHAMBERS, UAMIC ####[facility] Ekfwqpubbb8532 [place] [address]Dr. Chrissy Frazier Nitrite Ql (U) Negative Normal NEGATIVE [facility] Comment on above: Performed By: #### Amelie CHAMBERS UAMIC ####[facility] Wwwzwdvjon1879[address] [place], [place] [address]Dr. Chrissy Frazier pH (U) 6.0 [pH] Normal 5-9 [facility] Comment on above: Performed By: #### Amelie CHAMBERS UAMIC ####[facility] Snrlayjuce020[address] [place], [place] [address]Dr. Chrissy Frazier RBC 0-2 Normal 0-2 [facility] Comment on above: Performed By: #### Amelie CHAMBERS UAMIC ####[facility] Ngniowcegk2395[address] [place], [place] [address]Dr. Chrissy Frazier SPEC GRAVITY 1.020 Normal 1.005-<=1.025 [facility] Comment on above: Performed By: #### Amelie CHAMBERS UAMIC ####[facility] Xhifqfdvdn2217[address] [place], [place] [address]Dr. Chrissy Frazier UA PROTEIN Negative Normal NEGATIVE/ TRACE [facility] Comment on above: Performed By: #### Amelie CHAMBERS UAMIC ####[facility] Cudkffxhmf6563[address] [place], [place] [address]Dr. Chrissy Frazier Urobilinogen Qn (U) 0.2 {Estrellita'U}/dL Normal 0.2 - 1. 0 [facility] Comment on above: Performed By: #### Amelie CHAMBERS UAMIC ####[facility] Abursveqjy014[address] [place], [place] [address]Dr. Chrissy Frazier WBC 0-2 Abnormal NONE SEEN [facility] Comment on above: Performed By: #### D RUGRPD, UAMIC ####[facility] He[address]cezhar[address] [place], [place] [address]Yq. Chrissy Frazier XR ABD FLAT UP_PA Enoch 07-01 XR ABD FLAT UP_PA CH Normal [facility] Covid-19 PCR (CVDTB)on SARS-CoV-2 (COVID-19) RNA RHIANNON+probe Ql (Unsp spec) Not detected Normal NOT DETECTED [facility] Comment on above: Result Comment: When [...] for this test is supported by the Sales Representative Education Courses of Health and Human Service's declaration that [...] longer be used). Performed By: #### C [facility] ####[facility] Kvbmrwxhxs29[address] [place], [place] [address]Th. Chrissy Frazier SYMPTOMATIC COVID-19 ANTIGEN on 04-23-2022 EUA Statement SEE BELOW Normal The [facility] Comment on above: Result Comment: This [...] revoked sooner. Performed By: #### C VDAGS ####[facility] Xlkprpcqff5991 [place] [address]Dr. Chrissy Frazier SARS-CoV-2 (COVID-19) RNA RHIANNON+probe Ql (Unsp spec) Negative Normal NEGATIVE [facility] Comment on above: Performed By: #### C VDAGS ####[facility] Cigcydiacp[address] [place], [place] [address]Dr. Chrissy Frazier AMYLASEon 04-04-2022 Amylase [Catalytic activity/Vol] 40 U/L Normal 25-115 [facility] Comment on above: Performed By: #### C MP, TERRENCE, LIPA ####[facility] Lcgfjglbbi8[address] [place], [place] [address]Dr. Chrissy Frazier CBC AUTO DIFFon 04-04-2022 BASO # 0.1 103/ul Normal 0.0-0.1 [facility] Comment on above: Performed By: #### C BC ####[facility] Uxftmvzqnk075[address] [place], [place] [address]Dr. Chrissy Frazier Basophils/100 WBC (Bld) 0.4 % Normal 0.2-2.0 [facility] Comment on above: Performed By: #### C BC ####[facility] Tyoybehchc4398[address] [place], [place] [address]Dr. Chrissy Frazier EO # 0.1 103/ul Normal 0.0-0.7 [facility] Comment on above: Performed By: #### C BC ####[facility] Tqmvyvanpw360[address] [place], [place] [address]Dr. Chrissy Frazier Eosinophils/100 WBC (Bld) 0.6 % Critically low 0.9-7.0 [facility] Comment on above: Performed By: #### C BC ####[facility] Bcguwkldqf4975[address] [place], [place] [address]Dr. Chrissy Frazier Erythrocyte distribution width (RBC) [Ratio] 13.2 % Normal 11.0-15.0 [facility] Comment on above: Performed By: #### C BC ####[facility] Bgjxnntydi39[address] [place] [address]Dr. Chrissy Frazier Hematocrit (Bld) [Volume fraction] 48.3 % Normal 42.0-54.0 [facility] Comment on above: Performed By: #### C BC ####[facility] Pezqiqaefc15[address] [place] [address]Dr. Chrissy Frazier Hemoglobin (Bld) [Mass/Vol] 16.1 g/dL Normal 14.0-18.0 [facility] Comment on above: Performed By: #### C BC ####[facility] Hqfosrenxu[address]83[address] [place], [place] [address]Dr. Chrissy Frazier IG # 0.12 10e3/ul Critically high 0.00-0.03 [facility] Comment on above: Performed By: #### C BC ####[facility] Qcwefqysuw52[address] [place], [place] [address]Dr. Chrissy Frazier IG % 0.9 % Critically high 0.0-0.5 [facility] Comment on above: Performed By: #### C BC ####[facility] Mobvwbaogx427[address] [place], [place] [address]Dr. Chrissy Frazier LYMPH # 3.0 103/ul Normal 1.2-3.8 [facility] Comment on above: Performed By: #### C BC ####[facility] Gdvztwiqfx015[address] [place], [place] [address]Dr. Chrissy Frazier Lymphocytes/100 WBC (Bld) 22.3 % Normal 20.5-60.0 [facility] Comment on above: Performed By: #### C BC ####[facility] Vrtygkmqda[address] [place], [place] [address]DrNancy Frazier MANUAL DIFF REQ NO Normal [facility] Comment on above: Performed By: #### C BC ####[facility] Gypvphdrth[address] [place], [place] [address]DrNancy Frazier MCH (RBC) [Entitic mass] 28.6 pg Normal 25.9-34.0 [facility] Comment on above: Performed By: #### C BC ####[facility] Ykcytwqdrj038[address] [place] [id number]. Chrissy Freddie MCHC (RBC) [Mass/Vol] 33.3 g/dL Normal 29.9-35.2 [facility] Comment on above: Performed By: #### C BC ####[facility] Xnddycsepe33[address] [place] [id number]. Tishrowan Freddie MCV (RBC) [Entitic vol] 85.9 fL Normal 80.0-94.0 [facility] Comment on above: Performed By: #### C BC ####[facility] Hgaenrseoq[address] [place], [place] [address]Dr. Chrissy Frazier MONO # 0.8 103/ul Normal 0.3-0.8 The [facility] Comment on above: Performed By: #### C BC ####[facility] Hfgacwdskd[address] [place], [place] [address]Dr. Chrissy Frazier Monocytes/100 WBC (Bld) 5.7 % Normal 1.7-12.0 [facility] Comment on above: Performed By: #### C BC ####[facility] Igcoxyisfe[address] [place], [place] [address]Dr. Chrissy Frazier NEUT # 9.3 103/ul Critically high 1.4-6.5 [facility] Comment on above: Performed By: #### C BC ####[facility] Fuovvpimct758[address] [place], [place] [address]Dr. Chrissy Frazier Neutrophils/100 WBC (Bld) 70.1 % Normal 43.0-75.0 The [facility] Comment on above: Performed By: #### C BC ####[facility] Ourikkkdsu6[address] [place], [place] [address]DrNancy Frazier Platelet mean volume (Bld) [Entitic vol] 10.3 fL Normal 9.5-13.5 The [facility] Comment on above: Performed By: #### C BC ####[facility] Qqchwpbdap15[address] [place], [place] [address]Dr. Chrissy Frazier PLT 461 103/ul Critically high 150-450 [facility] Comment on above: Performed By: #### C BC ####[facility] Cpblcvrrwh8294 [place] [address]Dr. Tishrowan Freddie RBC 5.62 106/ul Normal 4.70-6.10 The [facility] Comment on above: Performed By: #### C BC ####[facility] Qposicvvzt0984 [place] [id number]. Chrissy Frazier WBC 13.3 103/ul Critically high 4.0-11.0 [facility] Comment on above: Performed By: #### C BC ####[facility] Efdubnaaqn2859 [place] [address]Dr. Chrissy Frazier LIPASEon 04-04-2022 Lipase [Catalytic activity/Vol] 118.0 U/L Normal 73.0-393.0 [facility] Comment on above: Performed By: #### C MP, TERRENCE, LIPA ####[facility] Macqzevybe3[address] [place] [address]Dr. Chrissy Frazier PROF 14(COMP METB)on 022 Albumin [Mass/Vol] 4.3 g/dL Normal 3.4-5.0 [facility] Comment on above: Performed By: #### C MP, TERRENCE, LIPA ####[facility] Fgpyhxmohs8151 [place] [address]Dr. Chrissy Frazier Albumin/Globulin [Mass ratio] 1.0 {ratio} Normal The [facility] Comment on above: Performed By: #### C MP, TERRECNE, LIPA ####[facility] Mvvhgrbwwh9596 [place] [address]Dr. Chrissy Frazier ALP [Catalytic activity/Vol] 84 U/L Normal 46-116 The [facility] Comment on above: Performed By: #### C MP, TERRENCE, LIPA ####[facility] Rmsittgazb4097 [place] [address]Dr. Chrissy Frazier ALT [Catalytic activity/Vol] 81 U/L Critically high 16-63 The [facility] Comment on above: Performed By: #### C MP, TERRENCE, LIPA ####[facility] Tsigruafza2872 [place] [id number]. Chrissy Frazier Anion gap [Moles/Vol] 17.9 mmol/L Normal [facility] Comment on above: Performed By: #### C MP, TERRENCE, LIPA ####[facility] Jjqqtycweu3612 [place] [address]Dr. Chrissy Frazier AST [Catalytic activity/Vol] 25 U/L Normal 15-37 The [facility] Comment on above: Performed By: #### C MP, TERRENCE, LIPA ####[facility] Nkjydqzfcw2172 [place] [address]Dr. Chrissy Frazier Bilirubin [Mass/Vol] 0.5 mg/dL Normal 0.2-1.0 The [facility] Comment on above: Performed By: #### C MP, TERRENCE, LIPA ####[facility] Qcywfvwlru9261 [place] [address]Dr. Chrissy Frazier Calcium [Mass/Vol] 9.6 mg/dL Normal 8.5-10.1 [facility] Comment on above: Performed By: #### C MP, TERRENCE, LIPA ####[facility] Ubdmenxnes7885 [place] [address]Dr. Chrissy Frazier Chloride [Moles/Vol] 101 mmol/L Normal 98-107 The [facility] Comment on above: Performed By: #### C MP, TERRENCE, LIPA ####[facility] Ubjhmohurd1613 [place] [address]Dr. Chrissy Frazier CO2 [Moles/Vol] 18.6 mmol/L Critically low 21.0-32.0 The [facility] Comment on above: Performed By: #### C MP, TERRENCE, LIPA ####[facility] Tsbaszxepe0725 [place] [address]Dr. Chrissy Frazier Creatinine [Mass/Vol] 1.39 mg/dL Critically high 0.70-1.30 [facility] Comment on above: Performed By: #### C MP, TERRENCE, LIPA ####[facility] Vilkrqdptn8224 [place] [address]Dr. Chrissy Frazier EGFR-AF ALBANIAN >60 Normal >=60 [facility] Comment on above: Performed By: #### C MP, TERRENCE, LIPA ####[facility] Bkzagorhbl6246 [place] [address]Dr. Chrissy Frazier EGFR-NON AF ALBANIAN 59 mL/min/1.73m2 Critically low >=60 [facility] Comment on above: Performed By: #### C MP, TERRENCE, LIPA ####[facility] Fmjgyncvcw2388 [place] [address]Dr. Chrissy Frazier Globulin (S) [Mass/Vol] 4.3 g/dL Normal [facility] Comment on above: Performed By: #### C MP, TERRENCE, LIPA ####[facility] Nfiouhxlfw0654 [place] [address]Dr. Chrissy Frazier Glucose [Mass/Vol] 132 mg/dL Critically high 74-106 [facility] Comment on above: Performed By: #### C MP, TERRENCE, LIPA ####[facility] Jxesqhbrbb7797[address] [place], [place] [address]Dr. Chrissy Frazier Potassium [Moles/Vol] 3.5 mmol/L Normal 3.5-5.1 [facility] Comment on above: Performed By: #### C MP, TERRENCE, LIPA ####[facility] Ckignebjzu4314[address] [place], [place] [address]Dr. Chrissy Frazier Protein [Mass/Vol] 8.6 g/dL Critically high 6.4-8.2 [facility] Comment on above: Performed By: #### C MP, TERRENCE, LIPA ####[facility] Iyibzthfhn3643 [place] [address]Dr. Chrissy Frazier Sodium [Moles/Vol] 134 mmol/L Critically low 136-145 [facility] Comment on above: Performed By: #### C MP, TERRENCE, LIPA ####[facility] Yjwvbevybh3648 [place] [address]Dr. Chrissy Frazier Urea nitrogen [Mass/Vol] 8.0 mg/dL Normal 7.0-18.0 [facility] Comment on above: Performed By: #### C MP, TERRENCE, LIPA ####[facility] Gksyhnhelj5184 [place] [address]Dr. Chrissy Frazier Urea nitrogen/Creatinine [Mass ratio] 5.8 mg/mg Normal The [facility] Comment on above: Performed By: #### C TERRENCE ADAIR LIPA ####[facility] Wpjfnisver9203 [place] [address]Dr. Chrissy Frazier XR ABD FLAT UP_PA Enoch 04-04 XR ABD FLAT UP_PA CH Normal The [facility] AMMONIAon 03-31-2022 Ammonia (P) [Moles/Vol] 19 umol/L Normal 11-32 The [facility] Comment on above: Performed By: #### A MM ####[facility] Urlvydkjvp735[address] [place], [place] [address]Dr. Chrissy Freddie CBC AUTO DIFFon 03-31-2022 BASO # 0.1 103/ul Normal 0.0-0.1 The [facility] Comment on above: Performed By: #### C BC ####[facility] Ltjlcylgsb3048[address] [place], [place] [address]Dr. Chrissy Freddie Basophils/100 WBC (Bld) 0.5 % Normal 0.2-2.0 The [facility] Comment on above: Performed By: #### C BC ####[facility] Uumlacrhal9938[address] [place], [place] [address]Dr. Chrissy Frazier EO # 0.2 103/ul Normal 0.0-0.7 The [facility] Comment on above: Performed By: #### C BC ####[facility] Epujkatydq8599[address] [place], [place] [address]Dr. Tishrowan Frazier Eosinophils/100 WBC (Bld) 1.6 % Normal 0.9-7.0 The [facility] Comment on above: Performed By: #### C BC ####[facility] Ehtwdkkbau9925[address] [place], [place] [address]Dr. Chrissy Freddie Erythrocyte distribution width (RBC) [Ratio] 13.2 % Normal 11.0-15.0 The [facility] Comment on above: Performed By: #### C BC ####[facility] Ivggxnwhvq5709[address] [place], [place] [address]Dr. Chrissy Frazier Hematocrit (Bld) [Volume fraction] 42.1 % Normal 42.0-54.0 The [facility] Comment on above: Performed By: #### C BC ####[facility] Hgjrylczod9259 [place] [address]Dr. Chrissy Frazier Hemoglobin (Bld) [Mass/Vol] 14.3 g/dL Normal 14.0-18.0 The [facility] Comment on above: Performed By: #### C BC ####[facility] Mzptscjlhb0675 [place] [address]Dr. Chrissy Frazier IG # 0.05 10e3/ul Critically high 0.00-0.03 [facility] Comment on above: Performed By: #### C BC ####[facility] Yimvjirzam6223 [place] [address]Dr. Chrissy Frazier IG % 0.5 % Normal 0.0-0.5 The [facility] Comment on above: Performed By: #### C BC ####[facility] Jpmxqlsibw8583 [place] [address]Dr. Chrissy Frazier LYMPH # 2.9 103/ul Normal 1.2-3.8 The [facility] Comment on above: Performed By: #### C BC ####[facility] Wxezytmaar8635 [place] [address]Dr. Chrissy Frazier Lymphocytes/100 WBC (Bld) 25.7 % Normal 20.5-60.0 The [facility] Comment on above: Performed By: #### C BC ####[facility] Ltruzqutxv3746 [place] [address]Dr. Chrissy Frazier MANUAL DIFF REQ NO Normal [facility] Comment on above: Performed By: #### C BC ####[facility] Krgbsvhfmk6617 [place] [address]Dr. Chrissy Frzaier MCH (RBC) [Entitic mass] 29.2 pg Normal 25.9-34.0 The [facility] Comment on above: Performed By: #### C BC ####[facility] Xwicqpyrjz8037 [place] [address]Dr. Chrissy Frazier MCHC (RBC) [Mass/Vol] 34.0 g/dL Normal 29.9-35.2 The [facility] Comment on above: Performed By: #### C BC ####[facility] Yjlvegwxbg9663 [place] [id number]. Chrissy Frazier MCV (RBC) [Entitic vol] 85.9 fL Normal 80.0-94.0 The [facility] Comment on above: Performed By: #### C BC ####[facility] Mujzieqgiy5122 [place] [id number]. Chrissy Freddie MONO # 1.0 103/ul Critically high 0.3-0.8 [facility] Comment on above: Performed By: #### C BC ####[facility] Whiavxpyab0600 [place] [address]Dr. Chrissy Frazier Monocytes/100 WBC (Bld) 8.6 % Normal 1.7-12.0 The [facility] Comment on above: Performed By: #### C BC ####[facility] Mwmkyydnlo425[address] [place], [place] [address]Dr. Chrissy Frazier NEUT # 7.0 103/ul Critically high 1.4-6.5 [facility] Comment on above: Performed By: #### C BC ####[facility] Qlgzfxeeof4098[address] [place], [place] [address]Dr. Tishrowan Frazier Neutrophils/100 WBC (Bld) 63.1 % Normal 43.0-75.0 The [facility] Comment on above: Performed By: #### C BC ####[facility] Pnuzlfsaua4557 [place] [id number]. Tishrowan Frazier Platelet mean volume (Bld) [Entitic vol] 10.4 fL Normal 9.5-13.5 The [facility] Comment on above: Performed By: #### C BC ####[facility] Jispfrivdi4230 [place] [address]Dr. Chrissy Frazier PLT 308 103/ul Normal 150-450 The [facility] Comment on above: Performed By: #### C BC ####[facility] Olgsfikwbp1798[address] [place], [place] [address]Dr. Chrissy Frazier RBC 4.90 106/ul Normal 4.70-6.10 The [facility] Comment on above: Performed By: #### C BC ####[facility] Jgcfsbhvcu1315 [place] [address]Dr. Tishrowan Freddie WBC 11.1 103/ul Critically high 4.0-11.0 [facility] Comment on above: Performed By: #### C BC ####[facility] Fyigqouxdm4964 [place] [address]Dr. Chrissy Frazier PROF 14(COMP METB)on 022 Albumin [Mass/Vol] 3.5 g/dL Normal 3.4-5.0 [facility] Comment on above: Performed By: #### C MP ####[facility] Swrvhuduwt5510[address] [place], [place] [address]Dr. Chrissy Frazier Albumin/Globulin [Mass ratio] 0.9 {ratio} Normal [facility] Comment on above: Performed By: #### C MP ####[facility] Cezfgtpnzv1944[address] [place], [place] [address]Dr. Tishrowan Frazier ALP [Catalytic activity/Vol] 68 U/L Normal 46-116 The [facility] Comment on above: Performed By: #### C MP ####[facility] Kfxiehqgdv1655[address] [place], [place] [address]Dr. Chrissy Frazier ALT [Catalytic activity/Vol] 113 U/L Critically high 16-63 The [facility] Comment on above: Performed By: #### C MP ####[facility] Yrksxciudl113[address] [place], [place] [address]Dr. Chrissy Frazier Anion gap [Moles/Vol] 14.0 mmol/L Normal [facility] Comment on above: Performed By: #### C MP ####[facility] Nwlwarilte9344[address] [place], [place] [address]Dr. Chrissy Frazier AST [Catalytic activity/Vol] 31 U/L Normal 15-37 [facility] Comment on above: Performed By: #### C MP ####[facility] Pmaojnttvh9122[address] [place], [place] [address]Dr. Chrissy Frazier Bilirubin [Mass/Vol] 0.6 mg/dL Normal 0.2-1.0 The [facility] Comment on above: Performed By: #### C MP ####[facility] Nileipeedg2284[address] [place], [place] [address]Dr. Chrissy Frazier Calcium [Mass/Vol] 8.4 mg/dL Critically low 8.5-10.1 Th e [facility] Comment on above: Performed By: #### C MP ####[facility] Qcmgegyvpw394[address] [place], [place] [address]Dr. Chrissy Frazier Chloride [Moles/Vol] 101 mmol/L Normal 98-107 The [facility] Comment on above: Performed By: #### C MP ####[facility] Sxidsnwqzp9905[address] [place], [place] [address]Dr. Chrissy Frazier CO2 [Moles/Vol] 24.2 mmol/L Normal 21.0-32.0 [facility] Comment on above: Performed By: #### C MP ####[facility] Wigdkxpzay5308[address] [place], [place] [address]Dr. Chrissy Frazier Creatinine [Mass/Vol] 1.15 mg/dL Normal 0.70-1.30 The [facility] Comment on above: Performed By: #### C MP ####[facility] Tsniiflxva3080[address] [place], [place] [address]Dr. Chrissy Frazier EGFR-AF ALBANIAN >60 Normal >=60 [facility] Comment on above: Performed By: #### C MP ####[facility] Elwbfscdyj1968[address] [place], [place] [address]Dr. Chrissy Frazier EGFR-NON AF ALBANIAN >60 Normal >=60 The [facility] Comment on above: Performed By: #### C MP ####[facility] Kodruffppw2846[address] [place], [place] [address]Dr. Chrissy Frazier Globulin (S) [Mass/Vol] 3.8 g/dL Normal [facility] Comment on above: Performed By: #### C MP ####[facility] Xgzrqiekel7125[address] [place], [place] [address]Dr. Chrissy Frazier Glucose [Mass/Vol] 100 mg/dL Normal 74-106 [facility] Comment on above: Performed By: #### C MP ####[facility] Myffylqchq2048 [place] [address]Dr. Chrissy Frazier Potassium [Moles/Vol] 3.2 mmol/L Critically low 3.5-5.1 [facility] Comment on above: Performed By: #### C MP ####[facility] Ygsfxqflzj0960[address] [place], [place] [address]Dr. Chrissy Frazier Protein [Mass/Vol] 7.3 g/dL Normal 6.4-8.2 [facility] Comment on above: Performed By: #### C MP ####[facility] Nzyekvilkk9634[address] [place], [place] [address]Dr. Chrissy Frazier Sodium [Moles/Vol] 136 mmol/L Normal 136-145 [facility] Comment on above: Performed By: #### C MP ####[facility] Cmkievewou4265[address] [place], [place] [address]Dr. Chrissy Frazier Urea nitrogen [Mass/Vol] 13.0 mg/dL Normal 7.0-18.0 [facility] Comment on above: Performed By: #### C MP ####[facility] Gefgcuinup0193[address] [place], [place] [address]Dr. Chrissy Frazier Urea nitrogen/Creatinine [Mass ratio] 11.3 mg/mg Normal [facility] Comment on above: Performed By: #### C MP ####[facility] Mkltdnhmpz3004[address] [place], [place] [address]Dr. Chrissy Frazier AMMONIAon 03-30-2022 Ammonia (P) [Mass/Vol] ug/dL Critically low 11-32 [facility] Comment on above: Performed By: #### A MM ####[facility] Ipnfgyjite1493[address] [place], [place] [address]Dr. Chrissy Frazier CBC AUTO DIFFon 03-30-2022 BASO # 0.1 103/ul Normal 0.0-0.1 [facility] Comment on above: Performed By: #### C BC ####[facility] Tiucitsbib2353[address] [place], [place] [address]Dr. Chrissy Frazier Basophils/100 WBC (Bld) 0.5 % Normal 0.2-2.0 The [facility] Comment on above: Performed By: #### C BC ####[facility] Ecxyqzzvhr1235 [place] [address]Dr. Chrissy Frazier EO # 0.1 103/ul Normal 0.0-0.7 The [facility] Comment on above: Performed By: #### C BC ####[facility] Sgasvlpfng9717[address] [place], [place] [address]Dr. Chrissy Frazier Eosinophils/100 WBC (Bld) 1.1 % Normal 0.9-7.0 The [facility] Comment on above: Performed By: #### C BC ####[facility] Ibnrteauja2484[address] [place], [place] [address]Dr. Chrissy Frazier Erythrocyte distribution width (RBC) [Ratio] 13.4 % Normal 11.0-15.0 [facility] Comment on above: Performed By: #### C BC ####[facility] Etokuxpffz8126[address] [place], [place] [address]Dr. Chrissy Frazier Hematocrit (Bld) [Volume fraction] 45.8 % Normal 42.0-54.0 [facility] Comment on above: Performed By: #### C BC ####[facility] Fnoagoufur8805[address] [place], [place] [address]Dr. Chrissy Frazier Hemoglobin (Bld) [Mass/Vol] 14.9 g/dL Normal 14.0-18.0 The [facility] Comment on above: Performed By: #### C BC ####[facility] Heyztopwwp0866[address] [place], [place] [address]Dr. Chrissy Frazier IG # 0.05 10e3/ul Critically high 0.00-0.03 [facility] Comment on above: Performed By: #### C BC ####[facility] Foafccyyol9620[address] [place], [place] [address]Dr. Chrissy Frazier IG % 0.5 % Normal 0.0-0.5 The [facility] Comment on above: Performed By: #### C BC ####[facility] Mgqvxrgwsb0463[address] [place], [place] [address]Dr. Chrissy Frazier LYMPH # 3.0 103/ul Normal 1.2-3.8 The [facility] Comment on above: Performed By: #### C BC ####[facility] Lxmuhwytmz6937 [place] [address]Dr. Chrissy Frazier Lymphocytes/100 WBC (Bld) 30.2 % Normal 20.5-60.0 [facility] Comment on above: Performed By: #### C BC ####[facility] Hpsjiisruk7164 [place] [address]Dr. Chrissy Frazier MANUAL DIFF REQ NO Normal [facility] Comment on above: Performed By: #### C BC ####[facility] Avzqaxkyjc9957 [place] [address]Dr. Chrissy Frazier MCH (RBC) [Entitic mass] 28.4 pg Normal 25.9-34.0 [facility] Comment on above: Performed By: #### C BC ####[facility] Vaftyoehiv5918[address] [place], [place] [address]Dr. Chrissy Frazier MCHC (RBC) [Mass/Vol] 32.5 g/dL Normal 29.9-35.2 The [facility] Comment on above: Performed By: #### C BC ####[facility] Akvmmhsroh3004[address] [place], [place] [address]Dr. Chrissy Frazier MCV (RBC) [Entitic vol] 87.4 fL Normal 80.0-94.0 The [facility] Comment on above: Performed By: #### C BC ####[facility] Eaciqzrmtj8[address] [place], [place] [address]Dr. Chrissy Frazier MONO # 0.8 103/ul Normal 0.3-0.8 The [facility] Comment on above: Performed By: #### C BC ####[facility] Spkgplcmms9138[address] [place], [place] [address]Dr. Chrissy Frazier Monocytes/100 WBC (Bld) 7.9 % Normal 1.7-12.0 The [facility] Comment on above: Performed By: #### C BC ####[facility] Advutiqxgr0154[address] [place], [place] [address]Dr. Yirowan Frazier NEUT # 5.9 103/ul Normal 1.4-6.5 The [facility] Comment on above: Performed By: #### C BC ####[facility] Drybkfcciy1672 [place] [address]DrNancy Frazier Neutrophils/100 WBC (Bld) 59.8 % Normal 43.0-75.0 [facility] Comment on above: Performed By: #### C BC ####[facility] Gniibvcwnh7867 [place] [address]DrNancy Frazier Platelet mean volume (Bld) [Entitic vol] 10.1 fL Normal 9.5-13.5 The [facility] Comment on above: Performed By: #### C BC ####[facility] Upjtqlxvys5396[address] [place], [place] [address]DrNancy Frazier PLT 320 103/ul Normal 150-450 The [facility] Comment on above: Performed By: #### C BC ####[facility] Apqufzopme4768[address] [place], [place] [address]DrNancy Frazier RBC 5.24 106/ul Normal 4.70-6.10 The [facility] Comment on above: Performed By: #### C BC ####[facility] Rspqvqxijt77[address] [place], [place] [address]DrNancy Frazier WBC 9.9 103/ul Normal 4.0-11.0 [facility] Comment on above: Performed By: #### C BC ####[facility] Rxvmhrvume450[address] [place], [place] [address]Dr. Chrissy Frazier PROF 14(COMP METB)on 022 Albumin [Mass/Vol] 3.9 g/dL Normal 3.4-5.0 [facility] Comment on above: Performed By: #### C MP ####[facility] Srgfaydmoq99[address] [place], [place] [address]DrNancy Frazier Albumin/Globulin [Mass ratio] 1.1 {ratio} Normal [facility] Comment on above: Performed By: #### C MP ####[facility] Oyfsrjpnto4482[address] [place], [place] [address]DrNancy Lowe Frazier ALP [Catalytic activity/Vol] 88 U/L Normal 46-116 [facility] Comment on above: Performed By: #### C MP ####[facility] Bjzkznkziq4258 [place] [address]Dr. Chrissy Frazier ALT [Catalytic activity/Vol] 161 U/L Critically high 16-63 [facility] Comment on above: Performed By: #### C MP ####[facility] Tdtvkvgeyu12[address] [place], [place] [address]Dr. Chrissy Freddie Anion gap [Moles/Vol] 12.3 mmol/L Normal [facility] Comment on above: Performed By: #### C MP ####[facility] Irmrkdodbo[address] [place], [place] [address]Dr. Chrissy Freddie AST [Catalytic activity/Vol] 64 U/L Critically high 15-37 [facility] Comment on above: Performed By: #### C MP ####[facility] Slghupmzcv37[address] [place], [place] [address]Dr. Chrissy Freddie Bilirubin [Mass/Vol] 0.8 mg/dL Normal 0.2-1.0 [facility] Comment on above: Performed By: #### C MP ####[facility] Qfeqaiqdvi9[address] [place], [place] [address]Dr. Chrissy Freddie Calcium [Mass/Vol] 8.4 mg/dL Critically low 8.5-10.1 [facility] Comment on above: Performed By: #### C MP ####[facility] Dllpoygtuo5[address] [place], [place] [address]Dr. Chrissy Freddie Chloride [Moles/Vol] 103 mmol/L Normal 98-107 [facility] Comment on above: Performed By: #### C MP ####[facility] Yrybrihmuh50[address] [place], [place] [address]Dr. Chrissy Frazier CO2 [Moles/Vol] 26.5 mmol/L Normal 21.0-32.0 [facility] Comment on above: Performed By: #### C MP ####[facility] Bhnfjkmcwa17[address] [place], [place] [address]Dr. Chrissy Frazier Creatinine [Mass/Vol] 1.24 mg/dL Normal 0.70-1.30 [facility] Comment on above: Performed By: #### C MP ####[facility] Oibwhglbpd[address] [place] [address]Dr. Chrissy Frazier EGFR-AF ALBANIAN >60 Normal >=60 [facility] Comment on above: Performed By: #### C MP ####[facility] Ueroqsandz9417 [place] [address]Dr. Chrissy Freddie EGFR-NON AF ALBANIAN >60 Normal >=60 [facility] Comment on above: Performed By: #### C MP ####[facility] Itseazynij4558 [place] [address]Dr. Chrissy Freddie Globulin (S) [Mass/Vol] 3.7 g/dL Normal [facility] Comment on above: Performed By: #### C MP ####[facility] Zgqdpurejt8530[address] [place], [place] [address]Dr. Chrissy Freddie Glucose [Mass/Vol] 108 mg/dL Critically high 74-106 [facility] Comment on above: Performed By: #### C MP ####[facility] Iqrbxylitr6199 [place] [address]Dr. Chrissy Freddie Potassium [Moles/Vol] 3.8 mmol/L Normal 3.5-5.1 [facility] Comment on above: Performed By: #### C MP ####[facility] Cweroydzgu9675 [place] [address]Dr. Chrissy Freddie Protein [Mass/Vol] 7.6 g/dL Normal 6.4-8.2 [facility] Comment on above: Performed By: #### C MP ####[facility] Pmwgsjdxjn1521 [place] [address]Dr. Chrissy Frazier Sodium [Moles/Vol] 138 mmol/L Normal 136-145 [facility] Comment on above: Performed By: #### C MP ####[facility] Mkeqletasb3193 [place] [address]Dr. Chrissy Freddie Urea nitrogen [Mass/Vol] 12.0 mg/dL Normal 7.0-18.0 [facility] Comment on above: Performed By: #### C MP ####[facility] Ttswjtcrfv9040[address] [place], [place] [address]Dr. Chrissy Frazier Urea nitrogen/Creatinine [Mass ratio] 9.7 mg/mg Normal [facility] Comment on above: Performed By: #### C MP ####[facility] Sztmwakxgh2846[address] [place], [place] [address]Dr. Chrissy Frazier AMMONIAon 03-29-2022 Ammonia (P) [Moles/Vol] 27 umol/L Normal 11-32 The [facility] Comment on above: Performed By: #### A MM ####[facility] Opayoeeirh1905[address] [place], [place] [address]Dr. Chrissy Frazier AMYLASEon 03-29-2022 Amylase [Catalytic activity/Vol] 29 U/L Normal 25-115 [facility] Comment on above: Performed By: #### L IPA, TERRENCE ####[facility] Ijbsvpvdfq2687[address] [place], [place] [address]Dr. Chrissy Frazier CBC AUTO DIFFon 03-29-2022 BASO # 0.0 103/ul Normal 0.0-0.1 [facility] Comment on above: Performed By: #### C BC ####[facility] Egdamikihs9597[address] [place], [place] [address]Dr. Chrissy Frazier Basophils/100 WBC (Bld) 0.2 % Normal 0.2-2.0 The [facility] Comment on above: Performed By: #### C BC ####[facility] Zuivzvpkvf8890[address] [place], [place] [address]Dr. Chrissy Frazier EO # 0.0 103/ul Normal 0.0-0.7 The [facility] Comment on above: Performed By: #### C BC ####[facility] Ttqkeaspzp7750[address] [place], [place] [address]Dr. Chrissy Frazier Eosinophils/100 WBC (Bld) 0.4 % Critically low 0.9-7.0 The [facility] Comment on above: Performed By: #### C BC ####[facility] Qqpqagegeh027[address] [place], [place] [address]Dr. Chrissy Frazier Erythrocyte distribution width (RBC) [Ratio] 13.6 % Normal 11.0-15.0 The [facility] Comment on above: Performed By: #### C BC ####[facility] Lgowpepabm8177 [place] [address]Dr. Chrissy Frazier Hematocrit (Bld) [Volume fraction] 45.2 % Normal 42.0-54.0 The [facility] Comment on above: Performed By: #### C BC ####[facility] Myatnhjuur8811[address] [place], [place] [address]Dr. Chrissy Frazier Hemoglobin (Bld) [Mass/Vol] 14.8 g/dL Normal 14.0-18.0 The [facility] Comment on above: Performed By: #### C BC ####[facility] Fbljdbxrud6898[address] [place], [place] [address]Dr. Tishrowan Frazier IG # 0.03 10e3/ul Normal 0.00-0.03 The [facility] Comment on above: Performed By: #### C BC ####[facility] Phajqdryik924[address] [place], [place] [address]Dr. Chrissy Frazier IG % 0.3 % Normal 0.0-0.5 The [facility] Comment on above: Performed By: #### C BC ####[facility] Fmgjosgzwo0164[address] [place], [place] [address]Dr. Chrissy Frazier LYMPH # 2.0 103/ul Normal 1.2-3.8 The [facility] Comment on above: Performed By: #### C BC ####[facility] Qsgeffnelo51[address] [place], [place] [address]Dr. Chrissy Freddie Lymphocytes/100 WBC (Bld) 18.3 % Critically low 20.5-60.0 The [facility] Comment on above: Performed By: #### C BC ####[facility] Ncoamdcnon8694[address] [place], [place] [address]Dr. Tishrowan Frazier MANUAL DIFF REQ NO Normal [facility] Comment on above: Performed By: #### C BC ####[facility] Ofcurqjacy2580[address] [place], [place] [address]Dr. Chrissy Frazier MCH (RBC) [Entitic mass] 28.5 pg Normal 25.9-34.0 The [facility] Comment on above: Performed By: #### C BC ####[facility] Nwxpczjlds4312 [place] [address]Dr. Chrissy Frazier MCHC (RBC) [Mass/Vol] 32.7 g/dL Normal 29.9-35.2 The [facility] Comment on above: Performed By: #### C BC ####[facility] Joozywcvan3080[address] [place], [place] [address]Dr. Chrissy Frazier MCV (RBC) [Entitic vol] 87.1 fL Normal 80.0-94.0 The [facility] Comment on above: Performed By: #### C BC ####[facility] Sctowngfhz1428[address] [place], [place] [address]Dr. Chrissy Frazier MONO # 0.9 103/ul Critically high 0.3-0.8 [facility] Comment on above: Performed By: #### C BC ####[facility] Xypbzvcnik9590[address] [place], [place] [address]Dr. Chrissy Frazier Monocytes/100 WBC (Bld) 8.6 % Normal 1.7-12.0 The [facility] Comment on above: Performed By: #### C BC ####[facility] Npcngnummc7613[address] [place], [place] [address]Dr. Tishrowan Frazier NEUT # 7.8 103/ul Critically high 1.4-6.5 [facility] Comment on above: Performed By: #### C BC ####[facility] Iumgducixf7135[address] [place], [place] [address]Dr. Chrissy Frazier Neutrophils/100 WBC (Bld) 72.2 % Normal 43.0-75.0 The [facility] Comment on above: Performed By: #### C BC ####[facility] Kvxguesfme063[address] [place], [place] [address]Dr. Chrissy Frazier Platelet mean volume (Bld) [Entitic vol] 10.1 fL Normal 9.5-13.5 [facility] Comment on above: Performed By: #### C BC ####[facility] Xfvasvurrd5[address] [place] [address]Dr. Chrissy Frazier PLT 329 103/ul Normal 150-450 [facility] Comment on above: Performed By: #### C BC ####[facility] Wxydvbygrw1557 [place] [address]Dr. Chrissy Frazier RBC 5.19 106/ul Normal 4.70-6.10 The [facility] Comment on above: Performed By: #### C BC ####[facility] Ygdopxognu9822 [place] [address]Dr. Chrissy Frazier WBC 10.8 103/ul Normal 4.0-11.0 The [facility] Comment on above: Performed By: #### C BC ####[facility] Uftrcvkhup98[address] [place] [address]Dr. Chrissy Frazier LIPASEon 03-29-2022 Lipase [Catalytic activity/Vol] 58.0 U/L Critically low 73.0-393.0 The [facility] Comment on above: Performed By: #### L TERRENCE VICTORIA ####[facility] Mcgrysnuvw44[address] [place] [address]Dr. Chrissy Frazier NM HEPATOBILIARY SCAN W EFon 03-29-2022 NM HEPATOBILIARY SCAN W EF Normal [facility] PROF 14(COMP METB)on 022 Albumin [Mass/Vol] 3.8 g/dL Normal 3.4-5.0 [facility] Comment on above: Performed By: #### C MP ####[facility] Zjsotoouxk7096 [place] [address]Dr. Chrissy Frazier Albumin/Globulin [Mass ratio] 1.0 {ratio} Normal [facility] Comment on above: Performed By: #### C MP ####[facility] Oulasvzuoc7900 [place] [id number]. Tishrowan Frazier ALP [Catalytic activity/Vol] 69 U/L Normal 46-116 [facility] Comment on above: Performed By: #### C MP ####[facility] Ejprdbkwyg4369 [place] [address]Dr. Chrissy Frazier ALT [Catalytic activity/Vol] 117 U/L Critically high 16-63 [facility] Comment on above: Performed By: #### C MP ####[facility] Pbwosunvdq9651 [place] [phone]. Chrissy Frazier Anion gap [Moles/Vol] 16.7 mmol/L Normal [facility] Comment on above: Performed By: #### C MP ####[facility] Zobuzbvlsj3108 [place] [phone]. Chrissy Frazier AST [Catalytic activity/Vol] 77 U/L Critically high 15-37 [facility] Comment on above: Performed By: #### C MP ####[facility] Fbteyxnlum9245 [place] [phone]. Chrissy Freddie Bilirubin [Mass/Vol] 1.5 mg/dL Critically high 0.2-1.0 [facility] Comment on above: Performed By: #### C MP ####[facility] Ahulgkhdpk0291 [place] [address]Dr. Tishrowan Freddie Calcium [Mass/Vol] 8.1 mg/dL Critically low 8.5-10.1 [facility] Comment on above: Performed By: #### C MP ####[facility] Dovvbvljkh5258 [place] [address]Dr. Chrissy Freddie Chloride [Moles/Vol] 101 mmol/L Normal 98-107 [facility] Comment on above: Performed By: #### C MP ####[facility] Wpjabpcdbv1639 [place] [phone]. Chrissy Freddie CO2 [Moles/Vol] 24.5 mmol/L Normal 21.0-32.0 [facility] Comment on above: Performed By: #### C MP ####[facility] Dhaqvfazod6952 [place] [phone]. Chrissy Freddie Creatinine [Mass/Vol] 1.17 mg/dL Normal 0.70-1.30 [facility] Comment on above: Performed By: #### C MP ####[facility] Rjnoyjgkvl5373 [place] [phone]. Chrissy Freddie EGFR-AF ALBANIAN >60 Normal >=60 [facility] Comment on above: Performed By: #### C MP ####[facility] Wuojowrvsm0405 [place] [address]Dr. Chrissy Frazier EGFR-NON AF ALBANIAN >60 Normal >=60 [facility] Comment on above: Performed By: #### C MP ####[facility] Tddayhbtth4095 [place] [phone]. Chrissy Frazier Globulin (S) [Mass/Vol] 3.9 g/dL Normal [facility] Comment on above: Performed By: #### C MP ####[facility] Hufifvuyha3928 [place] [address]Dr. Chrissy Frazier Glucose [Mass/Vol] 104 mg/dL Normal 74-106 [facility] Comment on above: Performed By: #### C MP ####[facility] Cvfubzzuil1191 [place] [address]Dr. Chrissy Frazier Potassium [Moles/Vol] 3.2 mmol/L Critically low 3.5-5.1 [facility] Comment on above: Performed By: #### C MP ####[facility] Xbzquasoio0338 [place] [address]Dr. Chrissy Frazier Protein [Mass/Vol] 7.7 g/dL Normal 6.4-8.2 [facility] Comment on above: Performed By: #### C MP ####[facility] Ajmadoxvcn6819 [place] [address]Dr. Chrissy Frazier Sodium [Moles/Vol] 139 mmol/L Normal 136-145 [facility] Comment on above: Performed By: #### C MP ####[facility] Vtxfyghuah4838 [place] [address]Dr. Chrissy Frazier Urea nitrogen [Mass/Vol] 11.0 mg/dL Normal 7.0-18.0 [facility] Comment on above: Performed By: #### C MP ####[facility] Awysegfbjq3617 [place] [address]Dr. Chrissy Frazier Urea nitrogen/Creatinine [Mass ratio] 9.4 mg/mg Normal [facility] Comment on above: Performed By: #### C MP ####[facility] Bcfvfbzhug0569 [place] [address]Dr. Chrissy Frazier US SINGLE QUAD RT UPPERon US SINGLE QUAD RT UPPER Normal [facility] AMMONIAon 03-28-2022 Ammonia (P) [Moles/Vol] 12 umol/L Normal 11-32 [facility] Comment on above: Performed By: #### A MM ####[facility] Enpfakgyqq8247 [place] [address]Dr. Chrissy Frazier CBC AUTO DIFFon 03-28-2022 BASO # 0.0 103/ul Normal 0.0-0.1 [facility] Comment on above: Performed By: #### C BC ####[facility] Jrfeudcpre9668[address] [place], [place] [address]Dr. Chrissy Frazier Basophils/100 WBC (Bld) 0.1 % Critically low 0.2-2.0 The [facility] Comment on above: Performed By: #### C BC ####[facility] Jszuuujvqu12[address] [place], [place] [address]Dr. Chrissy Frazier EO # 0.0 103/ul Normal 0.0-0.7 [facility] Comment on above: Performed By: #### C BC ####[facility] Hzdqpsyfxs1460[address] [place], [place] [address]Dr. Chrissy Frazier Eosinophils/100 WBC (Bld) 0.0 % Critically low 0.9-7.0 [facility] Comment on above: Performed By: #### C BC ####[facility] Xhmrqncwua9568[address] [place], [place] [address]Dr. Chrissy Frazier Erythrocyte distribution width (RBC) [Ratio] 14.0 % Normal 11.0-15.0 [facility] Comment on above: Performed By: #### C BC ####[facility] Chehismewl50[address] [place], [place] [address]Dr. Chrissy Frazier Hematocrit (Bld) [Volume fraction] 44.2 % Normal 42.0-54.0 [facility] Comment on above: Performed By: #### C BC ####[facility] Vhrzahorsb018[address] [place], [place] [address]Dr. Chrissy Freddie Hemoglobin (Bld) [Mass/Vol] 14.7 g/dL Normal 14.0-18.0 [facility] Comment on above: Performed By: #### C BC ####[facility] Purcffruet2805 [place] [address]Dr. Tishrowan Frazier IG # 0.10 10e3/ul Critically high 0.00-0.03 The [facility] Comment on above: Performed By: #### C BC ####[facility] Fzdndwzkze8317 [place] [address]Dr. Chrissy Frazier IG % 0.5 % Normal 0.0-0.5 The [facility] Comment on above: Performed By: #### C BC ####[facility] Vkybykoclv5184 [place] [address]Dr. Chrissy Frazier LYMPH # 2.6 103/ul Normal 1.2-3.8 The [facility] Comment on above: Performed By: #### C BC ####[facility] Pjawikuwxp4224 [place] [address]Dr. Chrissy Frazier Lymphocytes/100 WBC (Bld) 13.8 % Critically low 20.5-60.0 The [facility] Comment on above: Performed By: #### C BC ####[facility] Tynacfjjap4457 [place] [address]Dr. Tishrowan Frazier MANUAL DIFF REQ NO Normal [facility] Comment on above: Performed By: #### C BC ####[facility] Bsgiwyarvg1089 [place] [address]Dr. Chrissy Freddie MCH (RBC) [Entitic mass] 29.0 pg Normal 25.9-34.0 The [facility] Comment on above: Performed By: #### C BC ####[facility] Fttnznxaes8152 [place] [address]Dr. Chrissy Freddie MCHC (RBC) [Mass/Vol] 33.3 g/dL Normal 29.9-35.2 [facility] Comment on above: Performed By: #### C BC ####[facility] Acedztppww6543 [place] [address]Dr. Chrissy Freddie MCV (RBC) [Entitic vol] 87.2 fL Normal 80.0-94.0 [facility] Comment on above: Performed By: #### C BC ####[facility] Pwnwwmjgit2002 [place] [phone]. Chrissy Frazier MONO # 1.1 103/ul Critically high 0.3-0.8 [facility] Comment on above: Performed By: #### C BC ####[facility] Psvlixonqv8788 [place] [address]Dr. Chrissy Frazier Monocytes/100 WBC (Bld) 5.9 % Normal 1.7-12.0 [facility] Comment on above: Performed By: #### C BC ####[facility] Famxfdnlzm0[address] [place], [place] [address]Dr. Chrissy Freddie NEUT # 15.1 103/ul Critically high 1.4-6.5 [facility] Comment on above: Performed By: #### C BC ####[facility] Yjfnipnyyv6[address] [place], [place] [address]Dr. Tishrowan Frazier Neutrophils/100 WBC (Bld) 79.7 % Critically high 43.0-75.0 [facility] Comment on above: Performed By: #### C BC ####[facility] Mgfsdavhqd1560 [place] [address]Dr. Chrissy Frazier Platelet mean volume (Bld) [Entitic vol] 10.3 fL Normal 9.5-13.5 The [facility] Comment on above: Performed By: #### C BC ####[facility] Xqmbivlqig8[address] [place], [place] [address]Dr. Chrissy Frazier PLT 358 103/ul Normal 150-450 [facility] Comment on above: Performed By: #### C BC ####[facility] Ckjowcbbpc[address] [place], [place] [address]Dr. Chrissy Frazier RBC 5.07 106/ul Normal 4.70-6.10 The [facility] Comment on above: Performed By: #### C BC ####[facility] Iqdibxgymt[address] [place], [place] [address]Dr. Chrissy Frazier WBC 18.9 103/ul Critically high 4.0-11.0 [facility] Comment on above: Performed By: #### C BC ####[facility] Ldkuatpvlz6213 [place] [address]DrNancy Frazier PROF 14(COMP METB)on 022 Albumin [Mass/Vol] 3.9 g/dL Normal 3.4-5.0 [facility] Comment on above: Performed By: #### C MP ####[facility] Aellqnsubw5735 [place] [address]Dr. Chrissy Frazier Albumin/Globulin [Mass ratio] 1.1 {ratio} Normal [facility] Comment on above: Performed By: #### C MP ####[facility] Ghhynedrgr5877 [place] [address]Dr. Chrissy Frazier ALP [Catalytic activity/Vol] 65 U/L Normal 46-116 [facility] Comment on above: Performed By: #### C MP ####[facility] Wmtsmtmnmo29[address] [place], [place] [address]Dr. Chrissy Frazier ALT [Catalytic activity/Vol] 46 U/L Normal 16-63 [facility] Comment on above: Performed By: #### C MP ####[facility] Wboekvtkbd7823[address] [place], [place] [address]Dr. Chrissy Frazier Anion gap [Moles/Vol] 13.2 mmol/L Normal [facility] Comment on above: Performed By: #### C MP ####[facility] Jgxlqtfziw6796[address] [place], [place] [address]DrNancy Frazier AST [Catalytic activity/Vol] 33 U/L Normal 15-37 The [facility] Comment on above: Performed By: #### C MP ####[facility] Zqppybewpo[address]017[address] [place], [place] [address]Dr. Chrissy Frazier Bilirubin [Mass/Vol] 0.8 mg/dL Normal 0.2-1.0 The [facility] Comment on above: Performed By: #### C MP ####[facility] Nqhifkhwjh277[address] [place], [place] [address]Dr. Chrissy Frazier Calcium [Mass/Vol] 8.1 mg/dL Critically low 8.5-10.1 [facility] Comment on above: Performed By: #### C MP ####[facility] Kozypxoebt1510 [place] [address]Dr. Chrissy Frazier Chloride [Moles/Vol] 102 mmol/L Normal 98-107 [facility] Comment on above: Performed By: #### C MP ####[facility] Ejlqdsteri4190 [place] [address]Dr. Chrissy Frazier CO2 [Moles/Vol] 24.0 mmol/L Normal 21.0-32.0 [facility] Comment on above: Performed By: #### C MP ####[facility] Qskyaurgyd5060[address] [place], [place] [address]Dr. Chrissy Frazier Creatinine [Mass/Vol] 1.26 mg/dL Normal 0.70-1.30 [facility] Comment on above: Performed By: #### C MP ####[facility] Vbwtxgnalx4[address] [place], [place] [address]Dr. Chrissy Frazier EGFR-AF ALBANIAN >60 Normal >=60 [facility] Comment on above: Performed By: #### C MP ####[facility] Nssbgoinin9[address] [place], [place] [address]Dr. Chrissy Frazier EGFR-NON AF ALBANIAN >60 Normal >=60 [facility] Comment on above: Performed By: #### C MP ####[facility] Wzihhbvvuq6269 [place] [address]Dr. Chrissy Frazier Globulin (S) [Mass/Vol] 3.7 g/dL Normal [facility] Comment on above: Performed By: #### C MP ####[facility] Kwrkrlvlsj7903 [place] [address]Dr. Chrissy Frazier Glucose [Mass/Vol] 119 mg/dL Critically high 74-106 [facility] Comment on above: Performed By: #### C MP ####[facility] Kmfrbryuut0310 [place] [address]Dr. Chrissy Frazier Potassium [Moles/Vol] 3.2 mmol/L Critically low 3.5-5.1 The [facility] Comment on above: Performed By: #### C MP ####[facility] Jlflwtfntg3972 [place] [address]Dr. Chrissy Frazier Protein [Mass/Vol] 7.6 g/dL Normal 6.4-8.2 [facility] Comment on above: Performed By: #### C MP ####[facility] Kthupblqax8540 [place] [address]Dr. Chrissy Frazier Sodium [Moles/Vol] 136 mmol/L Normal 136-145 [facility] Comment on above: Performed By: #### C MP ####[facility] Imyeurxufu[address] [place], [place] [address]Dr. Chrissy Frazier Urea nitrogen [Mass/Vol] 14.0 mg/dL Normal 7.0-18.0 The [facility] Comment on above: Performed By: #### C MP ####[facility] [address] [place], [place] [address]Dr. Chrissy Frazier Urea nitrogen/Creatinine [Mass ratio] 11.1 mg/mg Normal [facility] Comment on above: Performed By: #### C MP ####[facility] [address] [place], [place] [address]Dr. Chrissy Freddie CBC W MANUAL DIFFon 03-27-20 22 ATYPICAL LYMPH # Normal [facility] Comment on above: Performed By: #### C BCMAN ####[facility] F[address]cnt[address] [place], [place] [address]Dr. Chrissy Frazier ATYPICAL LYMPH % Normal [facility] Comment on above: Performed By: #### C BCMAN ####[facility] W[address]rv[address] [place], [place] [address]Dr. Chrissy Frazier BAND # 0.0 103/ul Normal 0.0-0.3 [facility] Comment on above: Performed By: #### C BCMAN ####[facility] [address] [place] [address]Dr. Chrissy Frazier BAND % 0 % Normal 0-5 [facility] Comment on above: Performed By: #### C BCMAN ####[facility] [address]ir[address] [place] [id number]. Chrissy Frazier BASOM # 0.00 103/ul Normal 0.00-0.10 [facility] Comment on above: Performed By: #### C BCMAN ####[facility] [address] [place] [phone]. Chrissy Frazier BASOM % 0.0 % Critically low 0.2-2.0 The [facility] Comment on above: Performed By: #### C BCMAN ####[facility] Se[address] [place] [address]Dr. Chrissy Frazier BLAST # Normal [facility] Comment on above: Performed By: #### C BCLEANDRO ####[facility] Dtcoryxzmz[address] [place] [address]Dr. Chrissy Frazier BLAST % Normal [facility] Comment on above: Performed By: #### C BCLEANDRO ####[facility] [address] [place], [place] [address]Dr. Chrissy Frazier CORRECTED WBC Normal 4.0-11.0 The [facility] Comment on above: Performed By: #### C BCLEANDRO ####[facility] [address] [place], [place] [address]Dr. Chrissy Frazier EOS # 0.00 103/ul Normal 0.00-0.70 [facility] Comment on above: Performed By: #### C BCLEANDRO ####[facility] [address] [place] [address]Dr. Chrissy Frazier EOS% 0.0 % Critically low 0.9-7.0 The [facility] Comment on above: Performed By: #### C BCLEANDRO ####[facility] [address] [place] [address]Dr. Chrissy Frazier HCT 47.3 % Normal 42.0-54.0 [facility] Comment on above: Performed By: #### C BCLEANDRO ####[facility] V[address] [place], [place] [address]Dr. Chrissy Frazier HGB 16.4 g/dl Normal 14.0-18.0 The [facility] Comment on above: Performed By: #### C ANTONETTE ####[facility] [address] [place], [place] [address]Io. Chrissy Frazier LYMPHM # 2.31 103/ul Normal 1.20-3.80 [facility] Comment on above: Performed By: #### Silverio WHITMAN ####[facility] [address] [place], [place] [address]Ls. Chrissy Frazier LYMPHM% 9.0 % Critically low 20.5-60.0 The [facility] Comment on above: Performed By: #### C ANTONETTE ####[facility] [address] [place] [phone]. Chrissy Frazier MCH 28.6 pg Normal 25.9-34.0 [facility] Comment on above: Performed By: #### Silverio WHITMAN ####[facility] T[address]zteut[address] [place] [phone]. Chrissy Frazier MCHC 34.7 g/dl Normal 29.9-35.2 [facility] Comment on above: Performed By: #### Silverio WHITMAN ####[facility] Z[address]mygygcv[address] [place] [phone]. Chrissy Frazier MCV 82.4 fL Normal 80.0-94.0 [facility] Comment on above: Performed By: #### Silverio WHITMAN ####[facility] Refqtrvxue[address] [place] [phone]. Chrissy Frazier METAMYELOCYTE # Normal [facility] Comment on above: Performed By: #### Silverio WHITMAN ####[facility] Hg[address]orywdo[address] [place] [phone]. Chrissy Frazier METAMYELOCYTE % Normal [facility] Comment on above: Performed By: #### C ANTONETTE ####[facility] Uhvwnokggm69[address] [place] [phone]. Chrissy Frazier MONOM# 3.85 103/ul Critically high 0.30-0.80 [facility] Comment on above: Performed By: #### Silverio WHITMAN ####[facility] Lfuliuqkwq[address] [place] [phone]. Chrissy Frazier MONOM% 15.0 % Critically high 1.7-12.0 [facility] Comment on above: Performed By: #### C ANTONETTE ####[facility] Sfwptldvzs4[address] [place] [address]Dr. Chrissy Frazier MPV 10.6 fL Normal 9.5-13.5 [facility] Comment on above: Performed By: #### C ANTONETTE ####[facility] Agvhttzwsu[address] [place] [phone]. Chrissy Frazier MYELOCYTE # Normal [facility] Comment on above: Performed By: #### C ANTONETTE ####[facility] Lrdxhqtpsg[address]199 [place] [address]Dr. Chrissy Frazier MYELOCYTE % Normal [facility] Comment on above: Performed By: #### C ANTONETTE ####[facility] Ynwvmvlynw[address] [place] [address]Dr. Chrissy Frazier NRBC Normal [facility] Comment on above: Performed By: #### C ANTONETTE ####[facility] Wzyxlnptxi34[address] [place] [address]Dr. Chrissy Frazier PLT 471 103/ul Critically high 150-450 [facility] Comment on above: Performed By: #### C ANTONETTE ####[facility] Fsrdnyvpuv97[address] [place] [address]Dr. Chrissy Frazier RBC 5.74 106/ul Normal 4.70-6.10 [facility] Comment on above: Performed By: #### C ANTONETTE ####[facility] Ifdadvijcy7[address] [place] [address]Dr. Chrissy Frazier RDW 13.7 % Normal 11.0-15.0 [facility] Comment on above: Performed By: #### C ANTONETTE ####[facility] Rcrqzwphlv9[address] [place] [address]Dr. Chrissy Frazier SEG # 19.53 103/ul Critically high 1.40-6.50 The [facility] Comment on above: Performed By: #### C ANTONETTE ####[facility] Hzjhxrfajk[address] [place] [address]Dr. Tishrowan Frazier SEG % 76.0 % Critically high 43.0-75.0 [facility] Comment on above: Performed By: #### C BCMAN ####[facility] Lohdhjxzhf[address] [place] [address]Dr. Tishrowan Frazier TOXIC GRANULATION SLIGHT Normal The [facility] Comment on above: Result Comment: few vacoules Performed By: #### C BCLEANDRO ####[facility] Syifghnpos[address] [place] [address]Dr. Chrissy Frazier WBC 25.7 103/ul Critically high 4.0-11.0 [facility] Comment on above: Performed By: #### C ANTONETTE ####[facility] Byuthqskab[address] [place] [address]Dr. Chrissy Frazier LACTATE/LACTIC ACIDon 2021 Lactate [Moles/Vol] 2.4 mmol/L Critically high 0.4-1.9 [facility] Comment on above: Performed By: #### L ACT ####[facility] [address]bxvotx[address] [place] [address]Dr. Chrissy Frazier Lactate [Moles/Vol] 3.5 mmol/L Critically high 0.4-1.9 [facility] Comment on above: Performed By: #### L ACT ####[facility] Xmjidpdnbj[address] [place] [address]Dr. Chrissy Frazier LIPASEon 03-27-2022 Lipase [Catalytic activity/Vol] 43.0 U/L Critically low 73.0-393.0 [facility] Comment on above: Performed By: #### C MP, LIPA ####[facility] Nwekbqddyz[address] [place] [address]Dr. Chrissy Frazier PROF 14(COMP METB)on 022 Albumin [Mass/Vol] 4.7 g/dL Normal 3.4-5.0 The [facility] Comment on above: Performed By: #### C MP, LIPA ####[facility] I[address]klzglu[address] [place] [address]Dr. Chrissy Frazier Albumin/Globulin [Mass ratio] 1.1 {ratio} Normal [facility] Comment on above: Performed By: #### C MP, LIPA ####[facility] Ngjqmoddit6094 [place] [address]Dr. Chrissy Frazier ALP [Catalytic activity/Vol] 69 U/L Normal 46-116 [facility] Comment on above: Performed By: #### C MP, LIPA ####[facility] Gxqsyotdyn8[address] [place] [address]Dr. Chrissy Frazier ALT [Catalytic activity/Vol] 47 U/L Normal 16-63 [facility] Comment on above: Performed By: #### C MP, LIPA ####[facility] Ny[address]yp[address]mp[address] [place], [place] [address]Dr. Chrissy Freddie Anion gap [Moles/Vol] 23.2 mmol/L Normal [facility] Comment on above: Performed By: #### C MP, LIPA ####[facility] L[address]kyv[address] [place], [place] [address]Dr. Chrissy Freddie AST [Catalytic activity/Vol] 23 U/L Normal 15-37 [facility] Comment on above: Performed By: #### C MP, LIPA ####[facility] S[address] [place], [place] [address]Dr. Chrissy Freddie Bilirubin [Mass/Vol] 0.7 mg/dL Normal 0.2-1.0 [facility] Comment on above: Performed By: #### C MP, LIPA ####[facility] [address] [place], [place] [address]Dr. Chrissy Freddie Calcium [Mass/Vol] 9.2 mg/dL Normal 8.5-10.1 [facility] Comment on above: Performed By: #### C MP, LIPA ####[facility] U[address]lljvc[address] [place], [place] [address]Dr. Tishrowan Freddie Chloride [Moles/Vol] 97 mmol/L Critically low 98-107 [facility] Comment on above: Performed By: #### C MP, LIPA ####[facility] B[address]qpx[address]lo[address] [place], [place] [address]Dr. Yirowan Frazier CO2 [Moles/Vol] 18.2 mmol/L Critically low 21.0-32.0 [facility] Comment on above: Performed By: #### C MP, LIPA ####[facility] [address]fejdsbb[address] [place] [address]Dr. Chrissy Frazier Creatinine [Mass/Vol] 1.77 mg/dL Critically high 0.70-1.30 [facility] Comment on above: Performed By: #### C MP, LIPA ####[facility] [address]qe[address] [place], [place] [address]Dr. Chrissy Frazier EGFR-AF ALBANIAN 54 mL/min/1.73m2 Critically low >=60 [facility] Comment on above: Performed By: #### C MP, LIPA ####[facility] J[address]bcib[address]ce[address] [place], [place] [address]Dr. Chrissy Frazier EGFR-NON AF ALBANIAN 45 mL/min/1.73m2 Critically low >=60 [facility] Comment on above: Performed By: #### C MP, LIPA ####[facility] Nvascq[address] [place], [place] [address]Dr. Chrissy Frazier Globulin (S) [Mass/Vol] 4.4 g/dL Normal [facility] Comment on above: Performed By: #### C MP, LIPA ####[facility] J[address]irbydahm[address] [place], [place] [address]Dr. Chrissy Frazier Glucose [Mass/Vol] 131 mg/dL Critically high 74-106 [facility] Comment on above: Performed By: #### C MP, LIPA ####[facility] Kqsydxisia[address] [place], [place] [address]Dr. Chrissy Frazier Potassium [Moles/Vol] 3.4 mmol/L Critically low 3.5-5.1 [facility] Comment on above: Performed By: #### C MP, LIPA ####[facility] Ahucmqhapb[address] [place], [place] [address]Dr. Chrissy Frazier Protein [Mass/Vol] 9.1 g/dL Critically high 6.4-8.2 [facility] Comment on above: Performed By: #### C MP, LIPA ####[facility] [address]ws[address] [place], [place] [address]Ql. Chrissy Frazier Sodium [Moles/Vol] 135 mmol/L Critically low 136-145 [facility] Comment on above: Performed By: #### C MP, LIPA ####[facility] H[address]iroffbp[address] [place], [place] [address]To. Chrissy Frazier Urea nitrogen [Mass/Vol] 19.0 mg/dL Critically high 7.0-18.0 [facility] Comment on above: Performed By: #### C MANA, LIPA ####[facility] [address] [place] [id number]. Chrissy Frazier Urea nitrogen/Creatinine [Mass ratio] 10.7 mg/mg Normal [facility] Comment on above: Performed By: #### C MANA, LIPA ####[facility] Qnndlwjsvp27[address] [place] [address]Dr. Chrissy Frazier BMPon 11-03-2020 Anion gap [Moles/Vol] 14 mmol/L Normal 6-16 [facility] Comment on above: Performed By: #### 2 [id number], [id number], [id number] #### [facility] [address] [place] [address] Calcium [Mass/Vol] 9.0 mg/dL Normal 8.9-11.1 [facility] Comment on above: Performed By: #### 2 793492, [id number], [id number] #### [facility] [address] [place] [address] Chloride [Moles/Vol] 104 mmol/L Normal 101-111 [facility] Comment on above: Performed By: #### 2 001033, [id number], [id number] #### [facility] [address] [place] [address] CO2 [Moles/Vol] 21 mmol/L Normal 21-31 [facility] Comment on above: Performed By: #### 2 096250, [id number], [id number] #### [facility] [address] [place] [address] Creatinine [Mass/Vol] 1.3 mg/dL Normal 0.5-1.3 [facility] Comment on above: Performed By: #### 2 420511, [id number], [id number] #### [facility] [address] [place] [address] Glucose [Mass/Vol] 111 mg/dL Normal 55-199 [facility] Comment on above: Result Comment: If t his glucose result represents a fasting glucose, interpretation should refer to the following reference range: 55-99 mg/dL Performed By: #### 2 512128, [id number], [id number] #### [facility] [address] [place] [address] Potassium [Moles/Vol] 2.9 mmol/L Low 3.5-5.3 [facility] Comment on above: Performed By: #### 2 720203, 2906824, [id number] #### [facility] [address] [place] [address] Sodium [Moles/Vol] 136 mmol/L Normal 135-145 [facility] Comment on above: Performed By: #### 2 413652, [id number], [id number] #### [facility] [address] [place] [address] Urea nitrogen [Mass/Vol] 14 mg/dL Normal 5-21 [facility] Comment on above: Performed By: #### 2 233845, 8180778, [id number] #### [facility] [address] [place] [address] Urea nitrogen/Creatinine [Mass ratio] 11 No Units Normal 10-20 [facility] Comment on above: Performed By: #### 2 310429, [id number], [id number] #### [facility] [address] [place] [address] Lipase Levelon 11-03-2020 Lipase [Catalytic activity/Vol] 66 unit/L High 13-58 [facility] Comment on above: Performed By: #### 2 278714, [id number], [id number] #### [facility] [address] [place] [address] Physician Orderon 11-03-2020 Physician Order [id number] 3#1.00CD:127 Normal [facility] eGFRon 11-03-2020 GFR/1.73 sq M predicted among blacks MDRD (S/P/Bld) [Vol rate/Area] mL/min/{1.73_m2} Normal >=59 [facility] Comment on above: Order Comment: Order added by Discern Expert. Result Comment: eGFR is race adjusted. AA=. Performed By: #### 2 023048, [id number], [id number] #### [facility] [address] [place] [address] GFR/1.73 sq M predicted among non-blacks MDRD (S/P/Bld) [Vol rate/Area] mL/min/{1.73_m2} Normal >=59 [facility] Comment on above: Order Comment: Order added by Discern Expert. Result Comment: [employer] lindsay kidney disease could be indicated at eGFR's of less than 60 mL/min/1.73m2. Kidney failure is indicated at less than 15 mL/min/1.73m2. Performed By: #### 2 [id number], 5018383, [id number] #### [facility] [address] [place] [address] Encounters Encounter Date Encounter Type Care Provider Facility Start: 05-16-2024 End: 05-16-2024 ambulatory TUNG NORTHEIM Not Available Start: 03-07-2024 End: 03-07-2024 ambulatory TUNG NORTHEIM Not Available Start: 03-30-2023 ambulatory Luis Angel Muniz cility:[facility] Start: 01-03-2023 End: 01-04-[address] MELODY MARIO . Facility: Start: 01-03-2023 End: 01-04-2023 ambulatory RAQUEL BANKS Facility:[facility] Start: 12-29-2022 End: 12-30-[address] MELODY MARIO . Facility:[facility] Start: 12-13-2022 End: 12-14-2022 ambulatory [facility] Start: 11-24-2022 End: 11-24-2022 ambulatory [facility] Start: 11-16-2022 End: 11-17-[address] MELODY [...] Date Payer Category Payer Self-pay 1990 Unknown [id number] 01.06. [id number] 1990 Unknown [id number] 1990 Unknown [id number] 0.1.882798.3.579.2 1990 Unknown [id number] 0.1.571983.3.579.2593 1990 Unknown [id number] ..[id number] 0.1.261667.3.579.259 1990 Unknown [id number] 2.16.84 0.1.946752.3.579.2.593 1990 Unknown [id number] 2.16.84 0.1.360149.3.579.2.593 1990 Unknown [id number] 2.16.84 0.1.087059.3.579.2.593 1990 Unknown [id number] 2.16.84 0.1.497490.3.579.2.593 1990 Unknown [id number] 2.16.84 0.1.452070.3.579.2.593 1990 Unknown [id number] 2.16.84 0.1.067626.3.579.2.593 1990 Unknown [id number] 2.16.84 0.1.579942.3.579.2.593 1990 Unknown [id number] 2.16.84 0.1.087147.3.579.2.593 1990 Unknown [id number] 2.16.84 0.1.304595.3.579.2.1259 1990 Unknown [id number] 2.16.84 0.1.479393.3.579.2.1259 1959 Private Health Insurance [id number] Unknown [id number] 2.16.8 40.1.910317.3.579.2.531 Progress note 11-24-2022 Note Date & Type [...] report that his father had a fatal GA at the age of 54. Stress test [...] factor modification -Plan (more content not included)... [facility] Progress note 11-24-2022 Note Date & [...] All other systems reviewed and are negative. [facility] Summary Purpose Family History No Family [...] section and content) DATE CREATED AUTHOR 11/04/2020 [facility] DATE CREATED AUTHOR AUTHOR'S ORGANIZ ATION 01/08/2023 [facility] DATE CREATED AUTHOR AUTHOR'S ORGANIZ ATION 02/07/2023 [facility] DATE CREATED AUTHOR AUTHOR'S ORGANIZ ATION 04/01/2023 [facility] DATE CREATED AUTHOR AUTHOR'S ORGANIZ ATION 05/17/2024 [facility] FOR RECORDS PERTAINING TO PATIENTS WHO [...] BE BASED ON THE PRIMARY CLINICAL RECORDS. [employer] provides no warranty or guarantee of the accuracy or completeness of information in this document.
--- NOTE | 2024-07-15 16:35 | ED_ITS ---
HPI - Nausea/Vomiting/Diarrhea General Chief complaint: Nausea/Vomiting/Diarrhea Stated complaint: Vomiting Time Seen by Provider: 07/15/24 16:26 Source: patient Limitations: no limitations History of Present Illness HPI Narrative: This patient returns after being discharged earlier from this ER. He was seen by previous ER physician and was felt that he has cyclic vomiting. He was given supportive care and wanted to go home at the time of discharge this morning as he was feeling better. He is states that he went home and slept for a while but now the nausea and dry heaves are coming. This is a repetitive cycle for him based on previous charts and visits to this institution. He has not developed any diarrhea or fever. His vital signs here are noted. Does not have a headache chest pain or difficulty breathing just the repetitive vomiting. He was not given haloperidol earlier. He states he continues to use cannabinoids because it is the only thing that really helps him with his anxiety and depression. He is seeing a therapist and has been on a number of medications for his anxiety but they do not seem to help. He is still taking lithium 300 mg. Related Data Home Medications ?Medication ?Instructions ?Recorded ?Confirmed clonidine HCl 0.1 mg tablet 0.2 mg PO BID 11/17/23 03/19/24 hydroxyzine pamoate 25 mg capsule 25 mg PO QID PRN anxiety 11/17/23 03/19/24 lithium carbonate 300 mg capsule 300 mg PO BEDTIME 11/17/23 03/19/24 propranolol 80 mg tablet 80 mg PO DAILY 11/17/23 03/19/24 ascorbic acid (vitamin C) 1,000 mg 1 g PO DAILY 03/09/24 03/19/24 capsule cholecalciferol (vitamin D3) 10 10 mcg PO DAILY 03/09/24 03/19/24 mcg (400 unit) capsule meloxicam 15 mg tablet 15 mg PO DAILY 03/09/24 03/19/24 multivitamin (Daily Multi-Vitamin 1 tab PO DAILY 03/09/24 03/19/24 tablet) Allergies Allergy/AdvReac Type Severity Reaction Status Date / Time Penicillins Allergy Severe Unknown Verified 03/09/24 11:19 clarithromycin [From Biaxin] Allergy Unknown Verified 03/09/24 11:19 sulfamethoxazole Allergy unknown Verified 03/09/24 11:19 [From Bactrim] trimethoprim [From Bactrim] Allergy unknown Verified 03/09/24 11:19 [facility] Medical History (Updated 07/15/24 @ 17:00 by Nick Hill MD) Acquired deformity of right foot ?M21.961 - Unspecified acquired deformity of right lower leg (ICD-10) Displaced fracture of navicular [scaphoid] of right foot, sequela ?S92.251S - Displaced fracture of navicular [scaphoid] of right foot, sequela (ICD-10) Sprain of tarsometatarsal ligament of right foot ?S93.621A - Sprain of tarsometatarsal ligament of right foot, initial encoun ter (ICD-10) Post-traumatic osteoarthritis, right ankle and foot ?M19.171 - Post-traumatic osteoarthritis, right ankle and foot (ICD-10) Hemangioma ?D18.00 - Hemangioma unspecified site (ICD-10) Ulnar nerve entrapment ?G56.20 - Lesion of ulnar nerve, unspecified upper limb (ICD-10) Bronchitis ?J40 - Bronchitis, not specified as acute or chronic (ICD-10) Foot pain ?M79.673 - Pain in unspecified foot (ICD-10) Esophagitis ?K20.90 - Esophagitis, unspecified without bleeding (ICD-10) Cyclical vomiting ?R11.15 - Cyclical vomiting syndrome unrelated to migraine (ICD-10) Sciatica ?M54.30 - Sciatica, unspecified side (ICD-10) Insomnia ?G47.00 - Insomnia, unspecified (ICD-10) PTSD (post-traumatic stress disorder) ?F43.10 - Post-traumatic stress disorder, unspecified (ICD-10) Panic attacks ?F41.0 - Panic disorder [episodic paroxysmal anxiety] (ICD-10) Depression ?F32.A - Depression, unspecified (ICD-10) Anxiety ?F41.9 - Anxiety disorder, unspecified (ICD-10) Electronic cigarette use ?Z78.9 - Other specified health status (ICD-10) COVID-19 ?U07.1 - COVID-19 (ICD-10) Sleep apnea ?G47.30 - Sleep apnea, unspecified (ICD-10) GERD (gastroesophageal reflux disease) ?K21.9 - Gastro-esophageal reflux disease without esophagitis (ICD-10) Prediabetes ?R73.03 - Prediabetes (ICD-10) Abdominal pain ?R10.9 - Unspecified abdominal pain (ICD-10) Nausea & vomiting ?R11.2 - Nausea with vomiting, unspecified (ICD-10) Surgical History (Updated 03/09/24 @ 11:52 by Kimi Sierra NP) H/O shoulder surgery ?Z98.890 - Other specified postprocedural states (ICD-10) H/O colonoscopy ?Z98.890 - Other specified postprocedural states (ICD-10) History of esophagogastroduodenoscopy (EGD) ?Z98.890 - Other specified postprocedural states (ICD-10) S/P cubital tunnel release ?Z98.890 - Other specified postprocedural states (ICD-10) History of surgical removal of skin lesion ?Z98.890 - Other specified postprocedural states (ICD-10) ?Z87.2 - Personal history of diseases of the skin and subcutaneous tissue (ICD-10) Family History (Updated 03/09/24 @ 11:26 by Kimi Sierra NP) Other Family history of diabetes mellitus Family history of heart disease Family history of hypertension Family history of myocardial infarction Social History (Updated 03/09/24 @ 11:22 by Kimi Sierra NP) Within the past year, how often did you have a drink containing alcohol: never Score interpretation: A score less than 4 is consistent with normal alcohol consumption. Smoking status: Current some day smoker Do you use any of these nicotine containing products: vaping products Non-prescribed substance use: cannabis (any form) Previous occupational history: [employer] Highest level of school completed/degree received: high school graduate Exam Narrative Exam Narrative: The patient is ambulatory. His vital signs are noted. He does not have any evidence of altered mental status. I did review his charts from earlier and his BUN was modestly elevated and his white count was elevated modestly as well. 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 He says that he went home and slept for a while and took some hot hot baths but still feels the same. Cognition and mentation are normal. He has no restriction of the movement of the trunk torso or extremities. He does not have any headache or shortness of breath or chest discomfort. Constitutional Vital Signs, click to edit/add: Last Vital Signs Temp 98.2 F 07/15/24 16:24 Pulse 85 07/15/24 16:24 Resp 18 07/15/24 16:24 BP 116/94 H 07/15/24 16:24 Pulse Ox 98 07/15/24 16:24 O2 Del Method Room Air 07/15/24 16:31 Course Vital Signs Vital signs: Vital Signs Temperature 98.2 F 07/15/24 16:24 Pulse Rate 85 07/15/24 16:24 Respiratory Rate 18 07/15/24 16:24 Blood Pressure 116/94 H 07/15/24 16:24 Pulse Oximetry 98 07/15/24 16:24 Oxygen Delivery Method Room Air 07/15/24 16:24 Temperature 98.2 F 07/15/24 16:24 Pulse Rate 85 07/15/24 16:24 Respiratory Rate 18 07/15/24 16:24 Blood Pressure 116/94 H 07/15/24 16:24 Pulse Oximetry 98 07/15/24 16:24 Oxygen Delivery Method Room Air 07/15/24 16:31 MDM - Nausea/Vomiting/Diarrhea MDM Narrative Medical decision making narrative: Patient has history of recurrent cyclic vomiting because he states that marijuana is the only thing that helps with his anxiety. He is frequently admitted. He failed outpatient treatment earlier. We will give him a different course of therapy including haloperidol and a lower dose of Dilaudid. He will be given IV fluids. I did speak to the hospitalist and we will admit him for observation stay. He is afebrile and there is no symptoms that would suggest infectious process Discharge Plan Discharge Chief Complaint: Nausea/Vomiting/Diarrhea Clinical Impression: Dehydration Patient Disposition: Admitted as Observation Time of Disposition Decision: 17:00 Prescriptions / Home Meds: No Action clonidine HCl 0.1 mg tablet 0.2 mg PO BID hydroxyzine pamoate 25 mg capsule 25 mg PO QID PRN (Reason: anxiety) lithium carbonate 300 mg capsule 300 mg PO BEDTIME propranolol 80 mg tablet 80 mg PO DAILY meloxicam 15 mg tablet 15 mg PO DAILY cholecalciferol (vitamin D3) 10 mcg (400 unit) capsule 10 mcg PO DAILY ascorbic acid (vitamin C) 1,000 mg capsule 1 g PO DAILY multivitamin [Daily Multi-Vitamin] Tablet 1 tab PO DAILY Print Language: Kinyarwanda Referrals: Janes Mario MD [Primary Care Provider] - 1 week
[2024-07-15] MEDS: 0.9 % SODIUM CHLORIDE 1,000 ML 999 ML IV (17:00)
[2024-07-15] MEDS: HYDROMORPHONE HCL 1 MG/ML CARTRIDGE IV (17:03)
[2024-07-15] MEDS: HALOPERIDOL LACTATE 5 MG/ML VIAL IV (17:04)
[2024-07-15 17:13] LABS: Basophils Percent Auto 0.2 % (0.2-2.0); Hematocrit 44.6 % (42.0-54.0); Hemoglobin 15.5 g/dL (14.0-18.0); Immature Granulocytes Abs Auto 0.09 10^3/uL (0.00-0.03); Immature Granulocytes Pct Auto 0.5 % (0.0-0.5); Lymphocytes Absolute Auto 2.8 10^3/uL (1.2-3.8); Mean Corpuscular HGB Conc 34.8 g/dL (29.9-35.2); Mean Corpuscular Hemoglobin 28.7 pg (25.9-34.0); Mean Corpuscular Volume 82.6 fL (80.0-94.0); Mean Platelet Volume 10.8 fL (9.5-13.5); Monocytes Percent Auto 4.8 % (1.7-12.0); Neutrophils Absolute Auto 16.1 10^3/uL (1.4-6.5); Neutrophils Percent Auto 80.5 % (43.0-75.0); Platelet Count 477 10^3/uL (150-450); Red Cell Distribution Width 13.8 % (11.0-15.0)
--- OUTSIDE RECORDS SUMMARY | 2024-07-15 17:25 | XMS_ITS | CCD ---
Author Organization [facility] CliniSyma Care Team Providers Care Business Representative Name Role Phone RAQULE BANKS Referring Unavailable DARREN MOHAMAAmelie Attending Unavailable [...] ., DR OLIVER Admitting Unavailable WEST, DR RAPHALE [employer] Unavailable Michaels, K Consult[employer] Unavailable [...] to adverse reactions to drug (disorder) 09-28-20 [facility] Repository (1 source) Sulfamethoxazole / Trimethoprim; Translations: [SULFAMETHOXAZOLE-TR IMETHOPRIM] Drug Allergy 01-27-20 [facility] Repository (1 source) Clarithromycin Drug Allergy [facility] Repository (1 source) Sulfamethoxazole / Trimethoprim Drug Allergy 05-27-20 17 [facility] Repository (1 source) Sulfamethoxazole Drug Allergy 03-20-20 [facility] Repository (1 source) Trimethoprim Drug Allergy 03-20-20 [facility] Repository Problems Active Problems Problem [...] 11-16-2022 [facility] Other aftercare (1 source) 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 Chrissy Frazier AMYLASEon 01-04-2023 Amylase [Catalytic activity/Vol] 34 U/L Normal 25-115 [facility] Comment on above: Performed By: #### A MY ####[facility] Ywyrjwelme[address] [place], [place] [address]Dr. Chrissy Freddie CBC AUTO DIFFon 01-04-2023 BASO # 0.0 103/ul Normal 0.0-0.1 [facility] Comment on above: Performed By: #### C BC ####[facility] Rhogrvosal9[address] [place], [place] [address]Dr. Chrissy Frazier Basophils/100 WBC (Bld) 0.1 % Critically low 0.2-2.0 [facility] Comment on above: Performed By: #### C BC ####[facility] Cfkbcgmbrb8[address] [place], [place] [address]Dr. Tishrowan Frazier EO # 0.0 103/ul Normal 0.0-0.7 [facility] Comment on above: Performed By: #### C BC ####[facility] Sirdaymuqx8159[address] [place], [place] [address]Dr. Chrissy Frazier Eosinophils/100 WBC (Bld) 0.1 % Critically low 0.9-7.0 [facility] Comment on above: Performed By: #### C BC ####[facility] Dgpgqxpeae527[address] [place], [place] [address]DrNancy Frazier Erythrocyte distribution width (RBC) [Ratio] 14.0 % Normal 11.0-15.0 [facility] Comment on above: Performed By: #### C BC ####[facility] Acffcrghit314[address] [place], [place] [address]Dr. Chrissy Frazier Hematocrit (Bld) [Volume fraction] 40.4 % Critically low 42.0-54.0 [facility] Comment on above: Performed By: #### C BC ####[facility] [address]ooiiw[address] [place] [address]Dr. Chrissy Frazier Hemoglobin (Bld) [Mass/Vol] 13.8 g/dL Critically low 14.0-18.0 [facility] Comment on above: Performed By: #### C BC ####[facility] Sedoqwmcwe[address] [place] [address]Dr. Chrissy Freddie IG # 0.05 10e3/ul Critically high 0.00-0.03 [facility] Comment on above: Performed By: #### C BC ####[facility] Txnmtdxbpg88[address] [place] [address]Dr. Tishrowan Frazier IG % 0.3 % Normal 0.0-0.5 [facility] Comment on above: Performed By: #### C BC ####[facility] Fxwpwmlyum30[address] [place], [place] [address]Dr. Chrissy Frazier LYMPH # 1.7 103/ul Normal 1.2-3.8 [facility] Comment on above: Performed By: #### C BC ####[facility] Excqvujxsv[address] [place] [address]Dr. Chrissy Freddie Lymphocytes/100 WBC (Bld) 11.9 % Critically low 20.5-60.0 [facility] Comment on above: Performed By: #### C BC ####[facility] Lqstzjtxiy4[address] [place] [address]Dr. Chrissy Frazier MANUAL DIFF REQ NO Normal [facility] Comment on above: Performed By: #### C BC ####[facility] [address]jcjrrgp6[address] [place] [phone]. Chrissy Freddie MCH (RBC) [Entitic mass] 29.3 pg Normal 25.9-34.0 [facility] Comment on above: Performed By: #### C BC ####[facility] Sljmwusreb[address] [place] [phone]. Tishrowan Frazier MCHC (RBC) [Mass/Vol] 34.2 g/dL Normal 29.9-35.2 [facility] Comment on above: Performed By: #### C BC ####[facility] Kclajfutmw80[address] [place] [phone]. Chrissy Frazier MCV (RBC) [Entitic vol] 85.8 fL Normal 80.0-94.0 [facility] Comment on above: Performed By: #### C BC ####[facility] Srmewafzsx65[address] [place] [phone]. Chrissy Freddie MONO # 0.6 103/ul Normal 0.3-0.8 [facility] Comment on above: Performed By: #### C BC ####[facility] Omcribyoqj33[address] [place] [address]Dr. Chrissy Freddie Monocytes/100 WBC (Bld) 4.2 % Normal 1.7-12.0 [facility] Comment on above: Performed By: #### C BC ####[facility] Rwvteeuday79[address] [place], [place] [address]Dr. Chrissy Frazier NEUT # 12.0 103/ul Critically high 1.4-6.5 [facility] Comment on above: Performed By: #### C BC ####[facility] Fwujdskftb[address] [place], [place] [address]Dr. Tishrowan Frazier Neutrophils/100 WBC (Bld) 83.4 % Critically high 43.0-75.0 [facility] Comment on above: Performed By: #### C BC ####[facility] Xigbkjiddh2218[address] [place], [place] [address]Dr. Chrissy Freddie Platelet mean volume (Bld) [Entitic vol] 10.4 fL Normal 9.5-13.5 [facility] Comment on above: Performed By: #### C BC ####[facility] Vdiobpuvtq[address] [place], [place] [address]Dr. Chrissy Frazier PLT 313 103/ul Normal 150-450 [facility] Comment on above: Performed By: #### C BC ####[facility] Gfrnkyevve47[address] [place] [phone]. Chrissy Frazier RBC 4.71 106/ul Normal 4.70-6.10 [facility] Comment on above: Performed By: #### C BC ####[facility] Bipatgwoua[address] [place] [phone]. Chrissy Frazier WBC 14.4 103/ul Critically high 4.0-11.0 [facility] Comment on above: Performed By: #### C BC ####[facility] Lqddwujpnp30[address] [place] [phone]. Chrissy Frazier CULTURE URINEon 01-04-2023 CULTURE URINE Culture Observations: NO GROWTH. Normal [facility] Comment on above: Performed By: #### U RCX ####[facility] Cdkqersyoy[address] [place] [address]Dr. Chrissy Frazier DRUG SCREEN RAPID (URINE)on 01-04-2023 AMP Negative Normal NEGATIVE [facility] Comment on above: Performed By: #### D REYES, UAMIC ####[facility] Ncyorguchf[address] [place] [address]Dr. Chrissy Frazier BAR Negative Normal NEGATIVE [facility] Comment on above: Performed By: #### D REYES, UAMIC ####[facility] Qeryobzsnx0[address] [place] [address]Dr. Chrissy Frazier BUP Negative Normal NEGATIVE [facility] Comment on above: Performed By: #### D CHAYAD, UAMIC ####[facility] Kcznmibxef6[address] [place] [address]Dr. Chrissy Frazier BZO Positive Abnormal NEGATIVE [facility] Comment on above: Performed By: #### D REYES, UAMIC ####[facility] Ssggrxussu16[address] [place] [address]Dr. Chrissy Frazier LAUREN Negative Normal NEGATIVE [facility] Comment on above: Performed By: #### D REYES, UAMIC ####[facility] Enigylfepn6[address] [place] [address]Dr. Chrissy Frazier CUT-OFFS SEE BELOW Normal [facility] Comment on above: Result Comment: [...] ng/mL Performed By: #### Amelie CHAMBERS, UAMIC ####[facility] Ipcvslyyws312[address] [place], [place] [address]Dr. [facility] DRUG CUT HEADER DRUG CLASS TEST SYSTEM CUT-OFF CONCENTRATIONS ARE FOLLOWS: Normal [facility] Comment on above: Performed By: #### Amelie CHAMBERS UAMIC ####[facility] Dwxgyczgui0540[address] [place], [place] [address]Dr. Chrissy [facility] mAMP Negative Normal NEGATIVE [facility] Comment on above: Performed By: #### Amelie CHAMBERS UAMIC ####[facility] Xifppeefyt8868[address] [place], [place] [address]Dr. [facility] MTD Negative Normal NEGATIVE [facility] Comment on above: Performed By: #### Amelie CHAMBERS, UAMIC ####[facility] Waxkfwzwfb[address] [place], [place] [address]Dr. [facility] OPI Negative Normal NEGATIVE [facility] Comment on above: Performed By: #### Amelie CHAMBERS, UAMIC ####[facility] Fycuibctxv44[address] [place], [place] [address]Dr. [facility] OXY Negative Normal NEGATIVE [facility] Comment on above: Performed By: #### Amelie CHAMBERS, UAMIC ####[facility] Uwsjwgqmrj3020[address] [place], [place] [address]Dr. [facility] PCP Negative Normal NEGATIVE [facility] Comment on above: Performed By: #### Amelie CHAMBERS, UAMIC ####[facility] Iezokhssro460[address] [place], [place] [address]Dr. [facility] PPX Negative Normal NEGATIVE [facility] Comment on above: Performed By: #### D REYES UAMIC ####[facility] Dcscowfkmz[address] [place] [address]Dr. Chrissy Frazier TCA Positive Abnormal NEGATIVE [facility] Comment on above: Performed By: #### D REYES UAMIC ####[facility] Blctchkhds[address] [place] [address]Dr. Chrissy Frazier THC Positive Abnormal NEGATIVE [facility] Comment on above: Performed By: #### D REYES UAMIC ####[facility] Pkmmpvzicq[address] [place] [address]Dr. Chrissy Frazier LIPASEon 01-04-2023 Lipase [Catalytic activity/Vol] 57.0 U/L Critically low 73.0-393.0 [facility] Comment on above: Performed By: #### L IPA ####[facility] Brwxyghqrz[address] [place], [place] [address]Dr. Chrissy Frazier PROF 14(COMP METB)on 023 Albumin [Mass/Vol] 3.6 g/dL Normal 3.4-5.0 [facility] Comment on above: Performed By: #### C MP ####[facility] Npfbreijdt[address] [place], [place] [address]Dr. Chrissy Frazier Albumin/Globulin [Mass ratio] 1.0 {ratio} Normal [facility] Comment on above: Performed By: #### C MP ####[facility] Wknbswwlii110[address] [place], [place] [address]Dr. Chrissy Frazier ALP [Catalytic activity/Vol] 67 U/L Normal 46-116 [facility] Comment on above: Performed By: #### C MP ####[facility] Vgxjhsbzot3834[address] [place], [place] [address]Dr. Chrissy Frazier ALT [Catalytic activity/Vol] 26 U/L Normal 16-63 [facility] Comment on above: Performed By: #### C MP ####[facility] Axqsohlxgx90[address] [place] [address]Dr. Chrissy Frazier Anion gap [Moles/Vol] 16.3 mmol/L Normal [facility] Comment on above: Performed By: #### C MP ####[facility] Eglddivrhz28[address] [place] [phone]. Chrissy Frazier AST [Catalytic activity/Vol] 17 U/L Normal 15-37 [facility] Comment on above: Performed By: #### C MP ####[facility] Cwbnjpkxey5708 [place] [phone]. Chrissy Frazier Bilirubin [Mass/Vol] 0.4 mg/dL Normal 0.2-1.0 [facility] Comment on above: Performed By: #### C MP ####[facility] Ynmusvzxza6[address] [place], [place] [address]Dr. Chrissy Frazier Calcium [Mass/Vol] 8.7 mg/dL Normal 8.5-10.1 [facility] Comment on above: Performed By: #### C MP ####[facility] Wykhlmfhkq8[address] [place], [place] [address]Dr. Chrissy Frazier Chloride [Moles/Vol] 106 mmol/L Normal 98-107 [facility] Comment on above: Performed By: #### C MP ####[facility] Zmqaiexiqb8438[address] [place], [place] [address]Dr. Chrissy Frazier CO2 [Moles/Vol] 22.6 mmol/L Normal 21.0-32.0 [facility] Comment on above: Performed By: #### C MP ####[facility] Vntqfqgytl[address] [place], [place] [address]Dr. Chrissy Frazier Creatinine [Mass/Vol] 0.99 mg/dL Normal 0.70-1.30 [facility] Comment on above: Performed By: #### C MP ####[facility] Vyffclqahh[address] [place] [phone]. Chrissy Frazier EGFR-AF MONEGASQUE >60 Normal >=60 [facility] Comment on above: Performed By: #### C MP ####[facility] Njbnzzngsd9[address] [place] [address]Dr. Chrissy Frazier EGFR-NON AF MONEGASQUE >60 Normal >=60 [facility] Comment on above: Performed By: #### C MP ####[facility] Nyrnrbgbkh7[address] [place] [address]Dr. Chrissy Frazier Globulin (S) [Mass/Vol] 3.6 g/dL Normal [facility] Comment on above: Performed By: #### C MP ####[facility] Wnlfasdbll2[address] [place] [address]Dr. Chrissy Frazier Glucose [Mass/Vol] 138 mg/dL Critically high 74-106 [facility] Comment on above: Performed By: #### C MP ####[facility] Bfhejwlemb74[address] [place] [address]Dr. Chrissy Frazier Potassium [Moles/Vol] 3.9 mmol/L Normal 3.5-5.1 [facility] Comment on above: Performed By: #### C MP ####[facility] Fhesorxcgc456[address] [place], [place] [address]Dr. Chrissy Frazier Protein [Mass/Vol] 7.2 g/dL Normal 6.4-8.2 [facility] Comment on above: Performed By: #### C MP ####[facility] Qdblmkjebu18[address] [place], [place] [address]Dr. Chrissy Frazier Sodium [Moles/Vol] 141 mmol/L Normal 136-145 [facility] Comment on above: Performed By: #### C MP ####[facility] Inxkyqevft503[address] [place], [place] [address]Dr. Chrissy Frazier Urea nitrogen [Mass/Vol] 10.0 mg/dL Normal 7.0-18.0 [facility] Comment on above: Performed By: #### C MP ####[facility] Ieezmucuqe8850[address] [place], [place] [address]Dr. Chrissy Frazier Urea nitrogen/Creatinine [Mass ratio] 10.1 mg/mg Normal [facility] Comment on above: Performed By: #### C MP ####[facility] Lxkwoltjyz6216[address] [place], [place] [address]Dr. Chrissy Frazier UA RANDOM W/MICROSCOPICon BACTERIA TRACE Abnormal NONE SEEN [facility] Comment on above: Performed By: #### D REYES, UAMIC ####[facility] Sdmbpbeand0[address] [place] [address]Dr. Chrissy Frazier Bilirubin Ql (U) Negative Normal NEGATIVE [facility] Comment on above: Performed By: #### Amelie CHAMBERS, UAMIC ####[facility] Xqwlilarnm7869[address] [place], [place] [address]Dr. Chrissy Frazier CAST NONE SEEN Normal NONE SEEN [facility] Comment on above: Performed By: #### Amelie CHAMBERS, UAMIC ####[facility] Svnwowwdeq1216[address] [place], [place] [address]Dr. Chrissy Frazier Clarity (U) CLEAR Normal CLEAR [facility] Comment on above: Performed By: #### Amelie CHAMBERS, UAMIC ####[facility] Hwsangmgdt059[address] [place], [place] [address]Dr. Chrissy Frazier Color (U) YELLOW Normal YELLOW [facility] Comment on above: Performed By: #### Amelie CHAMBERS, UAMIC ####[facility] Ubrewgsqmf0614[address] [place], [place] [address]Dr. Chrissy Frazier Crystals LM Nom (Urine sed) NONE SEEN Normal NONE SEEN [facility] Comment on above: Performed By: #### Amelie CHAMBERS, UAMIC ####[facility] Gkztkajxuz986[address] [place], [place] [address]Dr. Chrissy Frazier Epithelial cells LM Ql (Urine sed) NONE SEEN Normal NONE SEEN /RARE [facility] Comment on above: Performed By: #### Amelie CHAMBERS, UAMIC ####[facility] Cxbbntthpu4139[address] [place], [place] [address]Dr. Chrissy Frazier Glucose Ql (U) Negative Normal NEGATIVE The [facility] Comment on above: Performed By: #### D REYES, UAMIC ####[facility] Micnkypcnw2190[address] [place], [place] [address]Dr. Chrissy Frazier Hemoglobin Ql (U) Negative Normal NEGATIVE [facility] Comment on above: Performed By: #### Amelie CHAMBERS, UAMIC ####[facility] Zdbqfngaku1623[address] [place], [place] [address]Dr. Chrissy Frazier Ketones Ql (U) 15 mg/dl Abnormal NEGATIVE The [facility] Comment on above: Performed By: #### Amelie CHAMBERS UAMIC ####[facility] Dggkqcnqsq83[address] [place] [address]Dr. Chrissy Frazier LEUKOCYTES Negative Normal NEGATIVE [facility] Comment on above: Performed By: #### Amelie CHAMBERS UAMIC ####[facility] Elvxyupoue74[address] [place] [address]Dr. Chrissy Frazier MUCOUS NONE SEEN Normal NONE SEEN [facility] Comment on above: Performed By: #### Amelie CHAMBERS UAMIC ####[facility] Hjznyceltg9895 [place] [address]Dr. Chrissy Frazier Nitrite Ql (U) Negative Normal NEGATIVE The [facility] Comment on above: Performed By: #### Amelie CHAMBERS UAMIC ####[facility] Qjalsncbif0131 [place] [address]Dr. Chrissy Frazier pH (U) 6.5 [pH] Normal 5-9 [facility] Comment on above: Performed By: #### Amelie CHAMBERS UAMIC ####[facility] Uftcjywjfa8[address] [place], [place] [address]Dr. Chrissy Frazier RBC NONE SEEN Abnormal 0-2 [facility] Comment on above: Performed By: #### Amelie CHAMBERS UAMIC ####[facility] Httpvipkat89[address] [place], [place] [address]Dr. Chrissy Frazier SPEC GRAVITY 1.020 Normal 1.005-<=1.025 The [facility] Comment on above: Performed By: #### Amelie CHAMBERS UAMIC ####[facility] Njjegiilik[address] [place], [place] [address]Dr. Chrissy Frazier UA PROTEIN Negative Normal NEGATIVE/ TRACE [facility] Comment on above: Performed By: #### Amelie CHAMBERS UAMIC ####[facility] Fuankoeikn85[address] [place], [place] [address]Dr. Chrissy Frazier Urobilinogen Qn (U) 0.2 {Estrellita'U}/dL Normal 0.2 - 1. 0 [facility] Comment on above: Performed By: #### Amelie CHAMBERS UAMIC ####[facility] Irlrtiownh[address] [place] [phone]. Chrissy Frazier WBC NONE SEEN Normal NONE SEEN [facility] Comment on above: Performed By: #### D REYES UAMIC ####[facility] Cglijcjycv7[address] [place] [phone]. Chrissy Frazier AMMONIAon 01-03-2023 Ammonia (P) [Moles/Vol] 17 umol/L Normal 11-32 [facility] Comment on above: Performed By: #### A MM ####[facility] Aanrnkcgcl19[address] [place] [address]Dr. Chrissy Frazier AMYLASEon 01-03-2023 Amylase [Catalytic activity/Vol] 38 U/L Normal 25-115 [facility] Comment on above: Performed By: #### L IPA, TERRENCE, CMP, MG ####[facility] Vfjuvfzwwu[address] [place] [address]Dr. Chrissy Frazier CBC AUTO DIFFon 01-03-2023 BASO # 0.1 103/ul Normal 0.0-0.1 [facility] Comment on above: Performed By: #### C BC ####[facility] Vxgyqmzeht70[address] [place] [address]Dr. Chrissy Frazier Basophils/100 WBC (Bld) 0.4 % Normal 0.2-2.0 [facility] Comment on above: Performed By: #### C BC ####[facility] Fdkbiaayvz7793 [place] [address]Dr. Chrissy Frazier EO # 0.1 103/ul Normal 0.0-0.7 [facility] Comment on above: Performed By: #### C BC ####[facility] Ecpvjvnwlu8594 [place] [address]Dr. Chrissy Frazier Eosinophils/100 WBC (Bld) 0.3 % Critically low 0.9-7.0 [facility] Comment on above: Performed By: #### C BC ####[facility] Hgcebpnbct5551 [place] [address]Dr. Chrissy Frazier Erythrocyte distribution width (RBC) [Ratio] 13.7 % Normal 11.0-15.0 [facility] Comment on above: Performed By: #### C BC ####[facility] Pwuetfpyta33[address] [place] [address]Dr. Tishrowan Freddie Hematocrit (Bld) [Volume fraction] 46.1 % Normal 42.0-54.0 [facility] Comment on above: Performed By: #### C BC ####[facility] Padjamrdkj[address] [place] [address]Dr. Chrissy Frazier Hemoglobin (Bld) [Mass/Vol] 15.4 g/dL Normal 14.0-18.0 [facility] Comment on above: Performed By: #### C BC ####[facility] Mmcprpadvp[address] [place], [place] [address]Dr. Chrissy Frazier IG # 0.11 10e3/ul Critically high 0.00-0.03 [facility] Comment on above: Performed By: #### C BC ####[facility] Jegxgffzba8740[address] [place], [place] [address]Dr. Chrissy Frazier IG % 0.6 % Critically high 0.0-0.5 [facility] Comment on above: Performed By: #### C BC ####[facility] Uclmpbwwft[address] [place], [place] [address]Dr. Chrissy Frazier LYMPH # 2.5 103/ul Normal 1.2-3.8 [facility] Comment on above: Performed By: #### C BC ####[facility] Wzqwbnrciw[address] [place], [place] [address]DrNancy Frazier Lymphocytes/100 WBC (Bld) 13.9 % Critically low 20.5-60.0 [facility] Comment on above: Performed By: #### C BC ####[facility] Xhebvhnzzt6[address] [place], [place] [address]DrNancy Frazier MANUAL DIFF REQ NO Normal [facility] Comment on above: Performed By: #### C BC ####[facility] Fbutgowunt022[address] [place] [address]Dr. Chrissy Frazier MCH (RBC) [Entitic mass] 28.6 pg Normal 25.9-34.0 [facility] Comment on above: Performed By: #### C BC ####[facility] Ekwzjikwiw5[address] [place] [address]Dr. Chrissy Frazier MCHC (RBC) [Mass/Vol] 33.4 g/dL Normal 29.9-35.2 [facility] Comment on above: Performed By: #### C BC ####[facility] Rcwwplrirx05[address] [place] [address]Dr. Chrissy Frazier MCV (RBC) [Entitic vol] 85.7 fL Normal 80.0-94.0 [facility] Comment on above: Performed By: #### C BC ####[facility] Ykgzwxmvqi15[address] [place], [place] [address]DrNancy Frazier MONO # 0.7 103/ul Normal 0.3-0.8 [facility] Comment on above: Performed By: #### C BC ####[facility] Xaixobxthy712[address] [place], [place] [address]Dr. Chrissy Frazier Monocytes/100 WBC (Bld) 4.0 % Normal 1.7-12.0 [facility] Comment on above: Performed By: #### C BC ####[facility] Clzksadwxq17[address] [place], [place] [address]DrNancy Frazier NEUT # 14.3 103/ul Critically high 1.4-6.5 The [facility] Comment on above: Performed By: #### C BC ####[facility] Txhesstojn[address] [place], [place] [address]Dr. Chrissy Frazier Neutrophils/100 WBC (Bld) 80.8 % Critically high 43.0-75.0 [facility] Comment on above: Performed By: #### C BC ####[facility] Iujcchsvdg[address] [place], [place] [address]DrNancy Frazier Platelet mean volume (Bld) [Entitic vol] 10.4 fL Normal 9.5-13.5 [facility] Comment on above: Performed By: #### C BC ####[facility] Hbfzhqdzgm74[address] [place], [place] [address]Dr. Chrissy Frazier PLT 437 103/ul Normal 150-450 [facility] Comment on above: Performed By: #### C BC ####[facility] G[address]pdaihxf[address] [place] [address]Dr. Chrissy Frazier RBC 5.38 106/ul Normal 4.70-6.10 [facility] Comment on above: Performed By: #### C BC ####[facility] Ecnygchfri4[address] [place] [address]Dr. Chrissy Frazier WBC 17.7 103/ul Critically high 4.0-11.0 [facility] Comment on above: Performed By: #### C BC ####[facility] Cvhwbpjwie[address] [place] [address]Dr. Chrissy Frazier CULTURE BLOODon 01-03-2023 Microscopic examination of blood, culture Culture Observations: NO GROWTH AT 5 DAYS. Normal [facility] Comment on above: Performed By: #### B LDCX1 ####[facility] Toretpcwok[address] [place], [place] [address]Dr. Chrissy Frazier Performed By: #### B LDCX2 ####[facility] [address]twclsoz[address] [place] [address]Dr. Chrissy Frazier ECHOCARDIO M/2D COMPLETEon 0 01-03-2023 ECHOCARDIO M/2D COMPLETE Normal [facility] LACTATE/LACTIC ACIDon 2022 Lactate [Moles/Vol] 2.7 mmol/L Critically high 0.4-1.9 [facility] Comment on above: Performed By: #### L ACT ####[facility] [address] [place] [phone]. Chrissy Frazier Lactate [Moles/Vol] 6.3 mmol/L Critically high 0.4-1.9 [facility] Comment on above: Performed By: #### L ACT ####[facility] [address] [place] [address]Dr. Chrissy Frazier LIPASEon 01-03-2023 Lipase [Catalytic activity/Vol] 74.0 U/L Normal 73.0-393.0 [facility] Comment on above: Performed By: #### L IPA, TERRENCE, CMP, MG ####[facility] [address]ttmuiwutt[address] [place] [address]Dr. Chrissy Frazier MAGNESIUMon 01-03-2023 Magnesium [Mass/Vol] 1.6 mg/dL Critically low 1.8-2.4 [facility] Comment on above: Performed By: #### L IPA, TERRENCE, CMP, MG ####[facility] Titbciozdp[address] [place] [address]Dr. Chrissy Frazier PROF 14(COMP METB)on 023 Albumin [Mass/Vol] 4.3 g/dL Normal 3.4-5.0 [facility] Comment on above: Performed By: #### L IPA, TERRENCE, CMP, MG ####[facility] [address]spdrfbm[address] [place] [address]Dr. Chrissy Frazier Albumin/Globulin [Mass ratio] 1.1 {ratio} Normal [facility] Comment on above: Performed By: #### L IPA, TERRENCE, CMP, MG ####[facility] Xybngbkitv[address] [place] [address]Dr. Chrissy Frazier ALP [Catalytic activity/Vol] 87 U/L Normal 46-116 [facility] Comment on above: Performed By: #### L IPA, TERRENCE, CMP, MG ####[facility] Ieffxbexxu[address] [place] [address]Dr. Chrissy Frazier ALT [Catalytic activity/Vol] 32 U/L Normal 16-63 [facility] Comment on above: Performed By: #### L IPA, TERRENCE, CMP, MG ####[facility] Deckpophem[address] [place] [address]Dr. Chrissy Frazier Anion gap [Moles/Vol] 24.0 mmol/L Normal [facility] Comment on above: Performed By: #### L IPA, TERRENCE, CMP, MG ####[facility] Xwkbnunlak[address] [place] [address]Dr. Chrissy Frazier AST [Catalytic activity/Vol] 22 U/L Normal 15-37 [facility] Comment on above: Performed By: #### L IPA, TERRENCE, CMP, MG ####[facility] Xqoqokruoh[address] [place] [address]Dr. Chrissy Frazier Bilirubin [Mass/Vol] 0.6 mg/dL Normal 0.2-1.0 [facility] Comment on above: Performed By: #### L IPA, TERRENCE, CMP, MG ####[facility] Dwxpjusoxq3[address] [place] [address]Dr. Chrissy Frazier Calcium [Mass/Vol] 9.6 mg/dL Normal 8.5-10.1 [facility] Comment on above: Performed By: #### L IPA, TERRENCE, CMP, MG ####[facility] Cvqovzxwph[address] [place] [address]Dr. Chrissy Frazier Chloride [Moles/Vol] 103 mmol/L Normal 98-107 [facility] Comment on above: Performed By: #### L IPA, TERRENCE, CMP, MG ####[facility] Nhoeckddar[address] [place], [place] [address]Dr. Chrissy Frazier CO2 [Moles/Vol] 16.7 mmol/L Critically low 21.0-32.0 [facility] Comment on above: Performed By: #### L IPA, TERRENCE, CMP, MG ####[facility] Pphbzfuhrq[address] [place], [place] [address]Dr. Chrissy Frazier Creatinine [Mass/Vol] 1.42 mg/dL Critically high 0.70-1.30 [facility] Comment on above: Performed By: #### L IPA, TERRENCE, CMP, MG ####[facility] Zzyurmdpbc[address] [place] [address]Dr. Chrissy Frazier EGFR-AF MONEGASQUE >60 Normal >=60 [facility] Comment on above: Performed By: #### L IPA, TERRENCE, CMP, MG ####[facility] Thsuywoeje[address] [place], [place] [address]Dr. Chrissy Frazier EGFR-NON AF MONEGASQUE 58 mL/min/1.73m2 Critically low >=60 [facility] Comment on above: Performed By: #### L IPA, TERRENCE, CMP, MG ####[facility] Yrczgoyvfx[address] [place] [address]Dr. Chrissy Frazier Globulin (S) [Mass/Vol] 4.0 g/dL Normal [facility] Comment on above: Performed By: #### L IPA, TERRENCE, CMP, MG ####[facility] Bgvuddhrlo[address] [place] [address]Dr. Chrissy Frazier Glucose [Mass/Vol] 149 mg/dL Critically high 74-106 [facility] Comment on above: Performed By: #### L IPA, TERRENCE, CMP, MG ####[facility] Ppyszgmsym4976 [place] [address]Dr. Chrissy Frazier Potassium [Moles/Vol] 3.7 mmol/L Normal 3.5-5.1 [facility] Comment on above: Performed By: #### L IPA, TERRENCE, CMP, MG ####[facility] Tvssyjqyhp47[address] [place] [address]Dr. Chrissy Frazier Protein [Mass/Vol] 8.3 g/dL Critically high 6.4-8.2 [facility] Comment on above: Performed By: #### L IPA, TERRENCE, CMP, MG ####[facility] Cuefxqdumv17[address] [place] [address]Dr. Chrissy Frazier Sodium [Moles/Vol] 140 mmol/L Normal 136-145 [facility] Comment on above: Performed By: #### L IPA, TERRENCE, CMP, MG ####[facility] Tyzqrdsydq2359 [place] [address]Dr. Chrissy Frazier Urea nitrogen [Mass/Vol] 16.0 mg/dL Normal 7.0-18.0 [facility] Comment on above: Performed By: #### L IPA, TERRENCE, CMP, MG ####[facility] Yhgopqzccq8486 [place] [address]Dr. Chrissy Frazier Urea nitrogen/Creatinine [Mass ratio] 11.3 mg/mg Normal [facility] Comment on above: Performed By: #### L IPA, TERRENCE, CMP, MG ####[facility] Ywjpbghpln98[address] [place] [address]Dr. Chrissy Frazier SED RATE [facility] 2022 SED RATE 37 mm/hr Critically high <=15 [facility] Comment on above: Performed By: #### S EDR ####[facility] [address] [place], [place] [address]Ml. Chrissy Frazier XR ABD FLAT UP_PA Enoch 01-03 XR ABD FLAT UP_PA CH Normal [facility] CT HEART CORONARY ANGIOGRAMo n [...] CT examination Electronically signed: Maikel Chappell. Normal [facility] Office Visiton 11-24-2022 Follow-up visit [id number] Paulina Montero 1990 M Date Provider Department Center 11/24/2022 3848-RAQUEL BANKS MANE [facility] Family History Problem Relation Age of Onset Coronary artery disease Father Heart attack Father 54 Family Status - Relation Status Age at Father Level of Service:[id number] ID OFFICE/OUTPATIENT NEW MODERATE MDM 45-59 MINUTES Reason for Visit and Comments: abnormal stress test [Other] Normal [facility] CARDIAC STRESS TESTon 2021 CARDIAC STRESS TEST Normal [facility] AMYLASEon 10-24-2022 Amylase [Catalytic activity/Vol] 26 U/L Normal 25-115 [facility] Comment on above: Performed By: #### C MP, LIPA, TERRENCE ####[facility] [address] [place], [place] [address]QiNancy Chrissy Frazier CBC AUTO DIFFon 10-24-2022 BASO # 0.0 103/ul Normal 0.0-0.1 [facility] Comment on above: Performed By: #### C BC ####[facility] [address]sc[address]ypyj[address] [place] [phone]. Chrissy Frazier Basophils/100 WBC (Bld) 0.2 % Normal 0.2-2.0 [facility] Comment on above: Performed By: #### C BC ####[facility] Bwsaetofhh[address] [place] [phone]. Chrissy Frazier EO # 0.1 103/ul Normal 0.0-0.7 [facility] Comment on above: Performed By: #### C BC ####[facility] [address] [place], [place] [address]Dr. Chrissy Frazier Eosinophils/100 WBC (Bld) 0.4 % Critically low 0.9-7.0 [facility] Comment on above: Performed By: #### C BC ####[facility] Oudljcviwf[address] [place], [place] [address]Dr. Chrissy Frazier Erythrocyte distribution width (RBC) [Ratio] 14.6 % Normal 11.0-15.0 [facility] Comment on above: Performed By: #### C BC ####[facility] Nnncdwlxyn[address] [place] [address]Dr. Chrissy Frazier Hematocrit (Bld) [Volume fraction] 39.4 % Critically low 42.0-54.0 [facility] Comment on above: Performed By: #### C BC ####[facility] Jmwlpcagfv14[address] [place] [phone]. Chrissy Frazier Hemoglobin (Bld) [Mass/Vol] 13.2 g/dL Critically low 14.0-18.0 [facility] Comment on above: Performed By: #### C BC ####[facility] Wuyqtugfve4[address] [place] [address]Dr. Chrissy Frazier IG # 0.07 10e3/ul Critically high 0.00-0.03 [facility] Comment on above: Performed By: #### C BC ####[facility] [address] [place], [place] [address]Dr. Chrissy Frazier IG % 0.5 % Normal 0.0-0.5 [facility] Comment on above: Performed By: #### C BC ####[facility] Gdvudamkxj18[address] [place] [phone]. Chrissy Frazier LYMPH # 3.7 103/ul Normal 1.2-3.8 [facility] Comment on above: Performed By: #### C BC ####[facility] [address]qqvzfhk[address] [place], [place] [address]Dd. Chrissy Freddie Lymphocytes/100 WBC (Bld) 27.0 % Normal 20.5-60.0 [facility] Comment on above: Performed By: #### C BC ####[facility] Cksdxpwhey16[address] [place] [phone]. Tishrowan Frazier MANUAL DIFF REQ NO Normal [facility] Comment on above: Performed By: #### C BC ####[facility] Zgiypvhmmx77[address] [place] [phone]. Chrissy Freddie MCH (RBC) [Entitic mass] 27.8 pg Normal 25.9-34.0 [facility] Comment on above: Performed By: #### C BC ####[facility] Xsgikswimh24[address] [place] [phone]. Chrissy Frazier MCHC (RBC) [Mass/Vol] 33.5 g/dL Normal 29.9-35.2 [facility] Comment on above: Performed By: #### C BC ####[facility] Twiwnkgako97[address] [place] [phone]. Chrissy Frazier MCV (RBC) [Entitic vol] 82.9 fL Normal 80.0-94.0 [facility] Comment on above: Performed By: #### C BC ####[facility] Gtkanxakou7[address] [place] [phone]. Chrissy Freddie MONO # 1.2 103/ul Critically high 0.3-0.8 [facility] Comment on above: Performed By: #### C BC ####[facility] Ovowqkturo88[address] [place] [phone]. Tishrowan Frazier Monocytes/100 WBC (Bld) 8.4 % Normal 1.7-12.0 [facility] Comment on above: Performed By: #### C BC ####[facility] Ysuhjtiujy9730 [place] [phone]. Chrissy Frazier NEUT # 8.8 103/ul Critically high 1.4-6.5 [facility] Comment on above: Performed By: #### C BC ####[facility] Ltjyqxdskh[address] [place] [phone]. Chrissy Frazier Neutrophils/100 WBC (Bld) 63.5 % Normal 43.0-75.0 [facility] Comment on above: Performed By: #### C BC ####[facility] Mnsunxwrnc7914 [place] [phone]. Tishrowan Frazier Platelet mean volume (Bld) [Entitic vol] 10.7 fL Normal 9.5-13.5 [facility] Comment on above: Performed By: #### C BC ####[facility] Vdruylqlfs6669 [place] [phone]. Chrissy Frazier PLT 291 103/ul Normal 150-450 [facility] Comment on above: Performed By: #### C BC ####[facility] [address]uf[address]qy[address] [place], [place] [address]Dr. Chrissy Frazier RBC 4.75 106/ul Normal 4.70-6.10 [facility] Comment on above: Performed By: #### C BC ####[facility] Mqsgbcfolf5353 [place] [phone]. Chrissy Frazier WBC 13.8 103/ul Critically high 4.0-11.0 [facility] Comment on above: Performed By: #### C BC ####[facility] [address]uxz[address] [place], [place] [address]Dr. Chrissy Frazier LIPASEon 10-24-2022 Lipase [Catalytic activity/Vol] 44.0 U/L Critically low 73.0-393.0 [facility] Comment on above: Performed By: #### C MP, LIPA, TERRENCE ####[facility] [address]qoigqcvuo28[address] [place] [address]Dr. Chrissy Frazier PROF 14(COMP METB)on 022 Albumin [Mass/Vol] 3.4 g/dL Normal 3.4-5.0 [facility] Comment on above: Performed By: #### C OSWALD ADAIR, TERRENCE ####[facility] Uhqzdafels3[address] [place] [address]Dr. Chrissy Frazier Albumin/Globulin [Mass ratio] 0.9 {ratio} Normal [facility] Comment on above: Performed By: #### C TESSA ADAIRA, TERRENCE ####[facility] Kquusigz[address] [place], [place] [address]Dr. Tishrowan Frazier ALP [Catalytic activity/Vol] 67 U/L Normal 46-116 [facility] Comment on above: Performed By: #### C OSWALD ADAIR, TERRENCE ####[facility] Wlapitwcri[address] [place], [place] [address]Dr. Chrissy Frazier ALT [Catalytic activity/Vol] 25 U/L Normal 16-63 [facility] Comment on above: Performed By: #### C OSWALD ADAIR, TERRENCE ####[facility] Kmnulqwmtz[address] [place], [place] [address]Dr. Chrissy Frazier Anion gap [Moles/Vol] 14.5 mmol/L Normal [facility] Comment on above: Performed By: #### C OSWALD ADAIR, TERRENCE ####[facility] Jnkudfppbg0[address] [place], [place] [address]Dr. Chrissy Frazier AST [Catalytic activity/Vol] 17 U/L Normal 15-37 [facility] Comment on above: Performed By: #### C OSWALD ADARI, TERRENCE ####[facility] Srxwnkpxse[address] [place], [place] [address]Dr. Chrissy Frazier Bilirubin [Mass/Vol] 0.5 mg/dL Normal 0.2-1.0 [facility] Comment on above: Performed By: #### C OSWALD ADAIR, TERRENCE ####[facility] Uiuqzhvkkl[address] [place], [place] [address]Dr. Chrissy Frazier Calcium [Mass/Vol] 8.6 mg/dL Normal 8.5-10.1 [facility] Comment on above: Performed By: #### C TESSA ADAIRA, TERRENCE ####[facility] Scxreupyus64[address] [place] [address]Dr. Chrissy Frazier Chloride [Moles/Vol] 106 mmol/L Normal 98-107 [facility] Comment on above: Performed By: #### C OSWALD ADAIR, TERRENCE ####[facility] Cquwxanyja2333 [place] [address]Dr. Chrissy Frazier CO2 [Moles/Vol] 22.8 mmol/L Normal 21.0-32.0 [facility] Comment on above: Performed By: #### C OSWALD ADAIR, TERRENCE ####[facility] Lwrknnbwyw8796 [place] [address]Dr. Chrissy Frazier Creatinine [Mass/Vol] 0.98 mg/dL Normal 0.70-1.30 [facility] Comment on above: Performed By: #### C OSWALD ADAIR, TERRENCE ####[facility] Qcyoxrwwbg[address] [place], [place] [address]Dr. Chrissy Frazier EGFR-AF MONEGASQUE >60 Normal >=60 [facility] Comment on above: Performed By: #### C OSWALD ADAIR, TERRENCE ####[facility] Garbzwioyd64[address] [place], [place] [address]Dr. Chrissy Frazier EGFR-NON AF MONEGASQUE >60 Normal >=60 [facility] Comment on above: Performed By: #### C OSWALD ADAIR, TERRENCE ####[facility] Zsdvaklabn8982 [place] [address]Dr. Chrissy Frazier Globulin (S) [Mass/Vol] 3.7 g/dL Normal [facility] Comment on above: Performed By: #### C OSWALD ADAIR, TERRENCE ####[facility] Pshavrlibl2794 [place] [address]Dr. Chrissy Frazier Glucose [Mass/Vol] 115 mg/dL Critically high 74-106 [facility] Comment on above: Performed By: #### C OSWALD ADAIR, TERRENCE ####[facility] Sfnakewnqh[address] [place], [place] [address]Dr. Chrissy Frazier Potassium [Moles/Vol] 3.3 mmol/L Critically low 3.5-5.1 [facility] Comment on above: Performed By: #### C MP, LIPA, TERRENCE ####[facility] Fqiosrxnbj[address] [place], [place] [address]Dr. Chrissy Frazier Protein [Mass/Vol] 7.1 g/dL Normal 6.4-8.2 [facility] Comment on above: Performed By: #### C MP, LIPA, TERRENCE ####[facility] T[address]ywxcvabo[address] [place], [place] [address]Dr. Chrissy Frazier Sodium [Moles/Vol] 140 mmol/L Normal 136-145 [facility] Comment on above: Performed By: #### C MP, LIPA, TERRENCE ####[facility] Yzavrtqcho[address] [place], [place] [address]Dr. Chrissy Frazier Urea nitrogen [Mass/Vol] 10.0 mg/dL Normal 7.0-18.0 [facility] Comment on above: Performed By: #### C MP, LIPA, TERRENCE ####[facility] Txrvjhqtmz[address] [place], [place] [address]Dr. Chrissy Frazier Urea nitrogen/Creatinine [Mass ratio] 10.2 mg/mg Normal [facility] Comment on above: Performed By: #### C MP, LIPA, TERRENCE ####[facility] Pkleypbqom[address] [place], [place] [address]Dr. Chrissy Frazier AMYLASEon 10-23-2022 Amylase [Catalytic activity/Vol] 31 U/L Normal 25-115 [facility] Comment on above: Performed By: #### C MP, LIPA, TERRENCE ####[facility] Xkyfgpkjmv[address] [place], [place] [address]Dr. Chrissy Frazier CBC AUTO DIFFon 10-23-2022 BASO # 0.1 103/ul Normal 0.0-0.1 [facility] Comment on above: Performed By: #### C BC ####[facility] Arbawj[address]cq[address] [place], [place] [address]Dr. Chrissy Frazier Basophils/100 WBC (Bld) 0.3 % Normal 0.2-2.0 [facility] Comment on above: Performed By: #### C BC ####[facility] Judekmjhdi[address] [place] [address]Dr. Chrissy Frazier EO # 0.1 103/ul Normal 0.0-0.7 [facility] Comment on above: Performed By: #### C BC ####[facility] Auvsivxrvm9424 [place] [address]Dr. Chrissy Frazier Eosinophils/100 WBC (Bld) 0.3 % Critically low 0.9-7.0 [facility] Comment on above: Performed By: #### C BC ####[facility] Imhuvrwvij[address] [place], [place] [address]Dr. Chrissy Frazier Erythrocyte distribution width (RBC) [Ratio] 14.5 % Normal 11.0-15.0 [facility] Comment on above: Performed By: #### C BC ####[facility] Btzkkuiwgl[address] [place], [place] [address]Dr. Chrissy Frazier Hematocrit (Bld) [Volume fraction] 44.0 % Normal 42.0-54.0 [facility] Comment on above: Performed By: #### C BC ####[facility] Vfmjpmgqdf[address] [place], [place] [address]Dr. Chrissy Frazier Hemoglobin (Bld) [Mass/Vol] 14.8 g/dL Normal 14.0-18.0 [facility] Comment on above: Performed By: #### C BC ####[facility] Osfhoahgqm[address] [place] [address]Dr. Chrissy Frazier IG # 0.09 10e3/ul Critically high 0.00-0.[address] [facility] Comment on above: Performed By: #### C BC ####[facility] Cgqmtsdjft[address] [place] [address]Dr. Chrissy Frazier IG % 0.5 % Normal 0.0-0.5 [facility] Comment on above: Performed By: #### C BC ####[facility] Qcdnyshbhe[address] [place], [place] [address]Dr. Chrissy Frazier LYMPH # 3.6 103/ul Normal 1.2-3.8 [facility] Comment on above: Performed By: #### C BC ####[facility] Noydwzywcg4187 [place] [phone]. Chrissy Freddie Lymphocytes/100 WBC (Bld) 19.4 % Critically low 20.5-60.0 [facility] Comment on above: Performed By: #### C BC ####[facility] Vdhzpoeoer6[address] [place] [phone]. Tishrowan Frazier MANUAL DIFF REQ NO Normal [facility] Comment on above: Performed By: #### C BC ####[facility] Yzbxddyqbl2181 [place] [phone]. Chrissy Freddie MCH (RBC) [Entitic mass] 28.1 pg Normal 25.9-34.0 [facility] Comment on above: Performed By: #### C BC ####[facility] Hiubdvwygs0273 [place] [phone]. Chrissy Freddie MCHC (RBC) [Mass/Vol] 33.6 g/dL Normal 29.9-35.2 [facility] Comment on above: Performed By: #### C BC ####[facility] Kmnexdskre5994 [place] [phone]. Chrissy Freddie MCV (RBC) [Entitic vol] 83.5 fL Normal 80.0-94.0 [facility] Comment on above: Performed By: #### C BC ####[facility] Rchipnhyoc7624 [place] [phone]. Chrissy Frazier MONO # 0.9 103/ul Critically high 0.3-0.8 [facility] Comment on above: Performed By: #### C BC ####[facility] Nzswzsaged0717 [place] [phone]. Tishrowan Frazier Monocytes/100 WBC (Bld) 4.9 % Normal 1.7-12.0 [facility] Comment on above: Performed By: #### C BC ####[facility] Ohsnthqeep7583 [place] [phone]. Chrissy Frazier NEUT # 13.9 103/ul Critically high 1.4-6.5 [facility] Comment on above: Performed By: #### C BC ####[facility] Fvhtkcgcjy6262 [place] [phone]. Chrissy Frazier Neutrophils/100 WBC (Bld) 74.6 % Normal 43.0-75.0 [facility] Comment on above: Performed By: #### C BC ####[facility] Vlpuyazxpl4749 [place] [phone]. Chrissy Frazier Platelet mean volume (Bld) [Entitic vol] 10.5 fL Normal 9.5-13.5 [facility] Comment on above: Performed By: #### C BC ####[facility] Ktrkndylqc6921 [place] [phone]. Chrissy Frazier PLT 402 103/ul Normal 150-450 [facility] Comment on above: Performed By: #### C BC ####[facility] Dygshukyic5849 [place] [phone]. Chrissy Frazier RBC 5.27 106/ul Normal 4.70-6.10 [facility] Comment on above: Performed By: #### C BC ####[facility] Ioqikfpcmz2822 [place] [phone]. Chrissy Frazier WBC 18.6 103/ul Critically high 4.0-11.0 [facility] Comment on above: Performed By: #### C BC ####[facility] Klosgziycl34[address] [place] [phone]. Chrissy Frazier CULTURE BLOODon 10-23-2022 Microscopic examination of blood, culture Culture Observations: NO GROWTH AT 5 DAYS. Normal [facility] Comment on above: Performed By: #### B LDCX2 ####[facility] Stthdjhppv9[address] [place] [phone]. Chrissy Frazier Microscopic examination of blood, culture Culture Observations: NO GROWTH AT 5 DAYS. Normal [facility] Comment on above: Performed By: #### B LDCX1 ####[facility] Dlpzjgouiq3976 [place] [phone]. Chrissy Frazier CULTURE URINEon 10-23-2022 CULTURE URINE Culture Observations: NO GROWTH. Normal [facility] Comment on above: Performed By: #### U RCX ####[facility] Asrazrkfnn56[address] [place] [phone]. Chrissy Frazier Covid-19 PCR (CVDTB)on SARS-CoV-2 (COVID-19) RNA RHIANNON+probe Ql (Unsp spec) Not detected Normal NOT DETECTED [facility] Comment on above: Result Comment: [...] for this test is supported by the [place] of [employer] and Human Service's declaration that [...] be used). Performed By: #### C VDTBH ####[facility] Qlhykpkhog[address] [place], [place] [address]Dr. Chrissy Frazier INFLUENZA A AND B AGon 10-23 INFLUANEGH SEE BELOW Normal [facility] Comment on above: Result Comment: Nega tive for Flu A protein angiten. Infection due to Flu A cannot be ruled out. Flu A angiten in the sample may be below the detection limit of the test. Performed By: #### I NFLUAB ####[facility] [address]vdnlmkk[address] [place], [place] [address]Dr. Chrissy Frazier INFLUBNEGH SEE BELOW Normal [facility] Comment on above: Result Comment: Nega tive for Flu B protein antigen. Infection due to Flu B cannot be ruled out. Flu B antigen in the sample may be below the detection limit of the test. Performed By: #### I NFLUAB ####[facility] Hooykerszt[address] [place], [place] [address]Dr. Chrissy Frazier INFLUENZA A AG Negative Normal NEGATIVE SEE COMMENT [facility] Comment on above: Performed By: #### I NFLUAB ####[facility] Pwfhnjapgz8105 [place] [phone]. Chrissy Frazier INFLUENZA B AG Negative Normal NEGATIVE SEE COMMENT [facility] Comment on above: Performed By: #### I NFLUAB ####[facility] Lqilwqljob[address] [place], [place] [address]Dr. Chrissy Frazier INTERNAL CONTROLS Within Normal Limits Normal Wi thin Normal Limits [facility] Comment on above: Performed By: #### I NFLUAB ####[facility] [address]thzejzkr[address] [place], [place] [address]Dr. Chrissy Frazier LACTATE/LACTIC ACIDon 2021 Lactate [Moles/Vol] 2.1 mmol/L Critically high 0.4-1.9 [facility] Comment on above: Performed By: #### L ACT ####[facility] [address]ys[address]yv[address] [place], [place] [address]Dr. Chrissy Frazier Lactate [Moles/Vol] 6.9 mmol/L Critically high 0.4-1.9 [facility] Comment on above: Performed By: #### L ACT ####[facility] [facility] [id number] [place], [place] [address]Dr. Chrissy Freddie LIPASEon 10-23-2022 Lipase [Catalytic activity/Vol] 72.0 U/L Critically low 73.0-393.0 [facility] Comment on above: Performed By: #### C OSWALD ADAIR AMY ####[facility] Jjritovrfw[address] [place], [place] [address]Dr. Chrissy Frazier PROF 14(COMP METB)on 022 Albumin [Mass/Vol] 3.9 g/dL Normal 3.4-5.0 [facility] Comment on above: Performed By: #### C OSWALD ADAIR AMY ####[facility] Taqfykpjte46[address] [place], [place] [address]Dr. Chrissy Freddie Albumin/Globulin [Mass ratio] 0.9 {ratio} Normal [facility] Comment on above: Performed By: #### C MP, LIPA, TERRENCE ####[facility] [address] [place] [address]Dr. Chrissy Frazier ALP [Catalytic activity/Vol] 82 U/L Normal 46-116 [facility] Comment on above: Performed By: #### C MP, LIPA, TERRENCE ####[facility] [address] [place] [address]Dr. Chrissy Frazier ALT [Catalytic activity/Vol] 25 U/L Normal 16-63 [facility] Comment on above: Performed By: #### C MP, LIPA, TERRENCE ####[facility] Iwftkkklhw[address] [place], [place] [address]Dr. Chrissy Frazier Anion gap [Moles/Vol] 18.1 mmol/L Normal [facility] Comment on above: Performed By: #### C MP, LIPA, TERRENCE ####[facility] Vwqtnsdzyr[address] [place], [place] [address]Dr. Chrissy Frazier AST [Catalytic activity/Vol] 17 U/L Normal 15-37 [facility] Comment on above: Performed By: #### C MP, LIPA, TERRENCE ####[facility] Xzsplnsqkk17[address] [place], [place] [address]Dr. Chrissy Frazier Bilirubin [Mass/Vol] 0.5 mg/dL Normal 0.2-1.0 [facility] Comment on above: Performed By: #### C MP, LIPA, TERRENCE ####[facility] Ulmvbmpaft[address] [place], [place] [address]Dr. Chrissy Frazier Calcium [Mass/Vol] 9.1 mg/dL Normal 8.5-10.1 [facility] Comment on above: Performed By: #### C MP, LIPA, TERRENCE ####[facility] Nfsdhedtna[address] [place], [place] [address]Dr. Chrissy Frazier Chloride [Moles/Vol] 101 mmol/L Normal 98-107 [facility] Comment on above: Performed By: #### C MP, LIPA, TERRENCE ####[facility] Mtkddvokur[address] [place], [place] [address]Dr. Chrissy Frazier CO2 [Moles/Vol] 19.2 mmol/L Critically low 21.0-32.0 [facility] Comment on above: Performed By: #### C OSWALD ADAIR TERRENCE ####[facility] [address] [place] [address]Dr. Chrissy Frazier Creatinine [Mass/Vol] 1.72 mg/dL Critically high 0.70-1.30 [facility] Comment on above: Performed By: #### C OSWALD ADAIR, TERRENCE ####[facility] [address] [place] [address]Dr. Chrissy Frazier EGFR-AF MONEGASQUE 56 mL/min/1.73m2 Critically low >=60 [facility] Comment on above: Performed By: #### C OSWALD ADAIR, TERRENCE ####[facility] [address] [place] [address]Dr. Chrissy Frazier EGFR-NON AF MONEGASQUE 46 mL/min/1.73m2 Critically low >=60 [facility] Comment on above: Performed By: #### C OSWALD ADAIR, TERRENCE ####[facility] Sapxbfzxgm7[address] [place], [place] [address]Dr. Chrissy Frazier Globulin (S) [Mass/Vol] 4.2 g/dL Normal [facility] Comment on above: Performed By: #### C OSWALD ADAIR, TERRENCE ####[facility] Emrkifores[address] [place] [address]Dr. Chrissy Frazier Glucose [Mass/Vol] 126 mg/dL Critically high 74-106 [facility] Comment on above: Performed By: #### C OSWALD ADAIR, TERRENCE ####[facility] [address]lqu[address] [place] [address]Dr. Chrissy Frazier Potassium [Moles/Vol] 3.3 mmol/L Critically low 3.5-5.1 [facility] Comment on above: Performed By: #### C TESSA ADAIRA, TERRENCE ####[facility] Sr[address]vtdfyj[address] [place] [address]Dr. Chrissy Frazier Protein [Mass/Vol] 8.1 g/dL Normal 6.4-8.2 [facility] Comment on above: Performed By: #### C OSWALD ADAIR, TERRENCE ####[facility] Obrcvqcivj[address] [place] [address]Dr. Chrissy Frazier Sodium [Moles/Vol] 135 mmol/L Critically low 136-145 [facility] Comment on above: Performed By: #### C TESSA ADAIRA, TERRENCE ####[facility] [address]jsuarsu[address] [place] [address]Dr. Chrissy Frazier Urea nitrogen [Mass/Vol] 13.0 mg/dL Normal 7.0-18.0 [facility] Comment on above: Performed By: #### C OSWALD ADAIR, TERRENCE ####[facility] Ybjavmgtpi[address] [place], [place] [address]Dr. Chrissy Frazier Urea nitrogen/Creatinine [Mass ratio] 7.6 mg/mg Normal [facility] Comment on above: Performed By: #### C OSWALD ADAIR, TERRENCE ####[facility] Czkbjfijpl[address] [place], [place] [address]Dr. Chrissy Frazier UA RANDOM W/MICROSCOPICon BACTERIA NONE SEEN Normal NONE SEEN [facility] Comment on above: Performed By: #### U AMIC ####[facility] Kyjpyogynt[address] [place], [place] [address]Dr. Chrissy Frazier Bilirubin Ql (U) Negative Normal NEGATIVE [facility] Comment on above: Performed By: #### U AMIC ####[facility] Oqljnqlkps[address] [place], [place] [address]Dr. Chrissy Frazier CAST NONE SEEN Normal NONE SEEN [facility] Comment on above: Performed By: #### U AMIC ####[facility] Ywgfvrlbkw4[address] [place], [place] [address]Dr. Chrissy Frazier Clarity (U) CLEAR Normal CLEAR [facility] Comment on above: Performed By: #### U AMIC ####[facility] [address]fk[address] [place] [address]Dr. Chrissy Frazier Color (U) LT. YELLOW Normal YELLOW [facility] Comment on above: Performed By: #### U AMIC ####[facility] Ywottktzku[address] [place] [address]Dr. Chrissy Frazier Crystals LM Nom (Urine sed) NONE SEEN Normal NONE SEEN [facility] Comment on above: Performed By: #### U AMIC ####[facility] Kzirmbffaq[address] [place], [place] [address]Dr. Chrissy Frazier Epithelial cells LM Ql (Urine sed) FEW Abnormal NONE SEEN /RARE [facility] Comment on above: Performed By: #### U AMIC ####[facility] Liemxlmtkh186[address] [place], [place] [address]Dr. Chrissy Frazier Glucose Ql (U) Negative Normal NEGATIVE The [facility] Comment on above: Performed By: #### U AMIC ####[facility] Eumjuuyzin[address] [place], [place] [address]Dr. Chrissy Frazier Hemoglobin Ql (U) Negative Normal NEGATIVE [facility] Comment on above: Performed By: #### U AMIC ####[facility] Wbfmeepylx[address] [place], [place] [address]Dr. Chrissy Frazier Ketones Ql (U) 15 mg/dl Abnormal NEGATIVE The [facility] Comment on above: Performed By: #### U AMIC ####[facility] Qmwfbmcpqx69[address] [place], [place] [address]Dr. Chrissy Frazier LEUKOCYTES Negative Normal NEGATIVE [facility] Comment on above: Performed By: #### U AMIC ####[facility] Jleeugxicj75[address] [place], [place] [address]Dr. Chrissy Frazier MUCOUS NONE SEEN Normal NONE SEEN [facility] Comment on above: Performed By: #### U AMIC ####[facility] Elyrqwagow[address] [place], [place] [address]Dr. Chrissy Frazier Nitrite Ql (U) Negative Normal NEGATIVE The [facility] Comment on above: Performed By: #### U AMIC ####[facility] Oxjtdovdrd9[address] [place], [place] [address]Dr. Chrissy Frazier pH (U) 6.0 [pH] Normal 5-9 [facility] Comment on above: Performed By: #### U AMIC ####[facility] Ciuroscqvv[address] [place], [place] [address]Dr. Chrissy Frazier RBC 0-2 Normal 0-2 [facility] Comment on above: Performed By: #### U AMIC ####[facility] K[address]frrk[address] [place] [address]Dr. Chrissy Frazier SPEC GRAVITY 1.010 Normal 1.005-<=1.025 [facility] Comment on above: Performed By: #### U AMIC ####[facility] T[address]mbrgzh[address] [place] [address]Dr. Chrissy Freddie UA PROTEIN Negative Normal NEGATIVE/ TRACE [facility] Comment on above: Performed By: #### U AMIC ####[facility] Photpucvof3[address] [place] [address]Dr. Chrissy Freddie Urobilinogen Qn (U) 0.2 {Estrellita'U}/dL Normal 0.2 - 1. 0 [facility] Comment on above: Performed By: #### U AMIC ####[facility] Amvmvlpkkx8[address] [place], [place] [address]Dr. Chrissy Freddie WBC NONE SEEN Normal NONE SEEN [facility] Comment on above: Performed By: #### U AMIC ####[facility] Esnxutgurl7[address] [place], [place] [address]Dr. Chrissy Freddie AMYLASEon 10-22-2022 Amylase [Catalytic activity/Vol] 28 U/L Normal 25-115 [facility] Comment on above: Performed By: #### L IPA, CMP, TERRENCE ####[facility] Mvqfnuzyev[address] [place], [place] [address]Dr. Chrissy Freddie CBC AUTO DIFFon 10-22-2022 BASO # 0.0 103/ul Normal 0.0-0.1 [facility] Comment on above: Performed By: #### C BC ####[facility] Ohnyfljekz[address] [place], [place] [address]Dr. Tishrowan Frazier Basophils/100 WBC (Bld) 0.2 % Normal 0.2-2.0 [facility] Comment on above: Performed By: #### C BC ####[facility] Dsvapoubse[address] [place], [place] [address]Dr. Chrissy Frazier EO # 0.0 103/ul Normal 0.0-0.7 [facility] Comment on above: Performed By: #### C BC ####[facility] Hbvfkybzwe[address] [place] [address]Dr. Chrissy Frazier Eosinophils/100 WBC (Bld) 0.1 % Critically low 0.9-7.0 [facility] Comment on above: Performed By: #### C BC ####[facility] Ngirrjynrm[address] [place] [address]Dr. Chrissy Frazier Erythrocyte distribution width (RBC) [Ratio] 14.4 % Normal 11.0-15.0 [facility] Comment on above: Performed By: #### C BC ####[facility] Xnzxpfkmuk[address] [place], [place] [address]Dr. Chrissy Frazier Hematocrit (Bld) [Volume fraction] 45.2 % Normal 42.0-54.0 [facility] Comment on above: Performed By: #### C BC ####[facility] Ierhjbknlj9813[address] [place], [place] [address]Dr. Chrissy Frazier Hemoglobin (Bld) [Mass/Vol] 15.4 g/dL Normal 14.0-18.0 [facility] Comment on above: Performed By: #### C BC ####[facility] Knowyjgawh[address] [place], [place] [address]Dr. Chrissy Frazier IG # 0.07 10e3/ul Critically high 0.00-0.03 [facility] Comment on above: Performed By: #### C BC ####[facility] [address]stpwm[address] [place] [address]Dr. Chrissy Frazier IG % 0.4 % Normal 0.0-0.5 [facility] Comment on above: Performed By: #### C BC ####[facility] Xkwkhitung[address]33[address] [place], [place] [address]Dr. Chrissy Frazier LYMPH # 2.0 103/ul Normal 1.2-3.8 [facility] Comment on above: Performed By: #### C BC ####[facility] Ujpgdoxerf2890[address] [place], [place] [address]Dr. Chrissy Frazier Lymphocytes/100 WBC (Bld) 12.2 % Critically low 20.5-60.0 [facility] Comment on above: Performed By: #### C BC ####[facility] Iw[address]plvmui[address] [place] [address]DrNancy Frazier MANUAL DIFF REQ NO Normal [facility] Comment on above: Performed By: #### C BC ####[facility] Mesivxlczu[address] [place] [address]Dr. Chrissy Frazier MCH (RBC) [Entitic mass] 28.3 pg Normal 25.9-34.0 [facility] Comment on above: Performed By: #### C BC ####[facility] Srckiyostd0567[address] [place], [place] [address]Dr. Chrissy Frazier MCHC (RBC) [Mass/Vol] 34.1 g/dL Normal 29.9-35.2 [facility] Comment on above: Performed By: #### C BC ####[facility] Llggesuxaf[address] [place], [place] [address]Dr. Chrissy Frazier MCV (RBC) [Entitic vol] 82.9 fL Normal 80.0-94.0 [facility] Comment on above: Performed By: #### C BC ####[facility] Lwpcibdvhm[address] [place], [place] [address]Dr. Chrissy Frazier MONO # 0.3 103/ul Normal 0.3-0.8 [facility] Comment on above: Performed By: #### C BC ####[facility] Mansqxaakv[address] [place], [place] [address]Dr. Chrissy Frazier Monocytes/100 WBC (Bld) 2.0 % Normal 1.7-12.0 [facility] Comment on above: Performed By: #### C BC ####[facility] Lpcabrszye9[address] [place], [place] [address]DrNancy Frazier NEUT # 14.0 103/ul Critically high 1.4-6.5 [facility] Comment on above: Performed By: #### C BC ####[facility] Chjiydckel7[address] [place], [place] [address]Dr. Chrissy Frazier Neutrophils/100 WBC (Bld) 85.1 % Critically high 43.0-75.0 [facility] Comment on above: Performed By: #### C BC ####[facility] [address]uxlkdmx[address] [place] [address]Dr. Chrissy Frazier Platelet mean volume (Bld) [Entitic vol] 10.6 fL Normal 9.5-13.5 [facility] Comment on above: Performed By: #### C BC ####[facility] Ffuytoxbul[address] [place] [address]Dr. Chrissy Frazier PLT 411 103/ul Normal 150-450 [facility] Comment on above: Performed By: #### C BC ####[facility] Cjgygymxyn[address] [place] [address]Dr. Tishrowan Frazier RBC 5.45 106/ul Normal 4.70-6.10 [facility] Comment on above: Performed By: #### C BC ####[facility] Yptcwjqtgn[address] [place], [place] [address]Dr. Chrissy Frazier WBC 16.5 103/ul Critically high 4.0-11.0 [facility] Comment on above: Performed By: #### C BC ####[facility] Dgcciqvght[address] [place], [place] [address]Dr. Chrissy Freddie LIPASEon 10-22-2022 Lipase [Catalytic activity/Vol] 57.0 U/L Critically low 73.0-393.0 [facility] Comment on above: Performed By: #### L JULIEN CMP, TERRENCE ####[facility] Njtxyzgzpq2674 [place] [address]Dr. Chrissy Frazier PROF 14(COMP METB)on 022 Albumin [Mass/Vol] 4.2 g/dL Normal 3.4-5.0 [facility] Comment on above: Performed By: #### L IPA CMP, TERRENCE ####[facility] Pdqklnmanq[address] [place] [address]Dr. Chrissy Frazier Albumin/Globulin [Mass ratio] 1.0 {ratio} Normal [facility] Comment on above: Performed By: #### L IPA, CMP, TERRENCE ####[facility] Ujoluqyxqz7[address] [place] [address]Dr. Chrissy Frazier ALP [Catalytic activity/Vol] 92 U/L Normal 46-116 [facility] Comment on above: Performed By: #### L IPA, CMP, TERRENCE ####[facility] Cjbevshjkp36[address] [place] [address]Dr. Chrissy Frazier ALT [Catalytic activity/Vol] 26 U/L Normal 16-63 [facility] Comment on above: Performed By: #### L IPA, CMP, TERRENCE ####[facility] Qhijrsuysh28[address] [place] [address]Dr. Chrissy Frazier Anion gap [Moles/Vol] 19.5 mmol/L Normal [facility] Comment on above: Performed By: #### L IPA, CMP, TERRENCE ####[facility] Lzvluxuaic7[address] [place], [place] [address]Dr. Chrissy Frazier AST [Catalytic activity/Vol] 19 U/L Normal 15-37 [facility] Comment on above: Performed By: #### L IPA, CMP, TERRENCE ####[facility] Skdjcxrqvy0924[address] [place], [place] [address]Dr. Chrissy Frazier Bilirubin [Mass/Vol] 0.7 mg/dL Normal 0.2-1.0 [facility] Comment on above: Performed By: #### L IPA, CMP, TERRENCE ####[facility] Uctsherzlq5[address] [place] [address]Dr. Chrissy Frazier Calcium [Mass/Vol] 9.6 mg/dL Normal 8.5-10.1 [facility] Comment on above: Performed By: #### L IPA, CMP, TERRENCE ####[facility] Wnslbvvxox8571 [place] [address]Dr. Chrissy Frazier Chloride [Moles/Vol] 102 mmol/L Normal 98-107 [facility] Comment on above: Performed By: #### L IPA, CMP, TERRENCE ####[facility] Tyngnkcwar13[address] [place] [address]Dr. Chrissy Frazier CO2 [Moles/Vol] 19.1 mmol/L Critically low 21.0-32.0 [facility] Comment on above: Performed By: #### L IPA CMP, TERRENCE ####[facility] Lcsfohkseu8[address] [place] [address]Dr. Chrissy Frazier Creatinine [Mass/Vol] 1.47 mg/dL Critically high 0.70-1.30 [facility] Comment on above: Performed By: #### L IPA CMP, TERRENCE ####[facility] Ptmgbqjtgj60[address] [place], [place] [address]Dr. Chrissy Freddie EGFR-AF MONEGASQUE >60 Normal >=60 [facility] Comment on above: Performed By: #### L IPA CMP, TERRENCE ####[facility] Bmifzhsiea[address] [place], [place] [address]Dr. Tishrowan Freddie EGFR-NON AF MONEGASQUE 56 mL/min/1.73m2 Critically low >=60 [facility] Comment on above: Performed By: #### L IPA CMP, TERRENCE ####[facility] Egngrmbgsp[address] [place], [place] [address]Dr. Chrissy Frazier Globulin (S) [Mass/Vol] 4.3 g/dL Normal [facility] Comment on above: Performed By: #### L IPA CMP, TERRENCE ####[facility] Ofsuaiujgh58[address] [place], [place] [address]Dr. Chrissy Frazier Glucose [Mass/Vol] 189 mg/dL Critically high 74-106 [facility] Comment on above: Performed By: #### L IPA CMP, TERRENCE ####[facility] Cjwnijvply[address] [place], [place] [address]Dr. Chrissy Frazier Potassium [Moles/Vol] 4.6 mmol/L Normal 3.5-5.1 [facility] Comment on above: Performed By: #### L IPA CMP, TERRENCE ####[facility] Whkmanhqjd5409[address] [place], [place] [address]Dr. Chrissy Frazier Protein [Mass/Vol] 8.5 g/dL Critically high 6.4-8.2 [facility] Comment on above: Performed By: #### L IPA CMP, TERRENCE ####[facility] Thqnjtvsom[address] [place] [id number]. Chrissy Freddie Sodium [Moles/Vol] 136 mmol/L Normal 136-145 [facility] Comment on above: Performed By: #### L IPA, CMP, TERRENCE ####[facility] Lwdmpprsww9203 [place] [address]Dr. Chrissy Freddie Urea nitrogen [Mass/Vol] 16.0 mg/dL Normal 7.0-18.0 [facility] Comment on above: Performed By: #### L IPA, CMP, TERRENCE ####[facility] Pldfzzocjw49[address] [place] [address]Dr. Tishrowan Frazier Urea nitrogen/Creatinine [Mass ratio] 10.9 mg/mg Normal [facility] Comment on above: Performed By: #### L IPA, CMP, TERRENCE ####[facility] Mmjoswqgpf326[address] [place], [place] [address]Dr. Tishrowan Frazier AMYLASEon 09-03-2022 Amylase [Catalytic activity/Vol] 25 U/L Normal 25-115 [facility] Comment on above: Performed By: #### L IPA, TERRENCE, CMP ####[facility] Gfodtevxkd01[address] [place], [place] [address]Dr. Chrissy Frazier CBC AUTO DIFFon 09-03-2022 BASO # 0.0 103/ul Normal 0.0-0.1 [facility] Comment on above: Performed By: #### C BC ####[facility] Nxffpfcmkj4377[address] [place], [place] [address]Dr. Chrissy Frazier Basophils/100 WBC (Bld) 0.1 % Critically low 0.2-2.0 [facility] Comment on above: Performed By: #### C BC ####[facility] Sjexzabtge[address] [place], [place] [address]Dr. Chrissy Frazier EO # 0.0 103/ul Normal 0.0-0.7 [facility] Comment on above: Performed By: #### C BC ####[facility] Dhuleqvdbe806[address] [place], [place] [address]Dr. Chrissy Frazier Eosinophils/100 WBC (Bld) 0.1 % Critically low 0.9-7.0 [facility] Comment on above: Performed By: #### C BC ####[facility] Xjdjoiqoga6458 [place] [address]Dr. Chrissy Frazier Erythrocyte distribution width (RBC) [Ratio] 14.0 % Normal 11.0-15.0 [facility] Comment on above: Performed By: #### C BC ####[facility] Jduuixfsir98[address] [place] [address]Dr. Chrissy Frazier Hematocrit (Bld) [Volume fraction] 42.5 % Normal 42.0-54.0 [facility] Comment on above: Performed By: #### C BC ####[facility] Stzadivodn20[address] [place], [place] [address]Dr. Chrissy Frazier Hemoglobin (Bld) [Mass/Vol] 14.1 g/dL Normal 14.0-18.0 [facility] Comment on above: Performed By: #### C BC ####[facility] Lhwgernkjr98[address] [place], [place] [address]Dr. Chrissy Frazier IG # 0.06 10e3/ul Critically high 0.00-0.03 [facility] Comment on above: Performed By: #### C BC ####[facility] Jetmckqyna5727[address] [place], [place] [address]Dr. Chrissy Frazier IG % 0.4 % Normal 0.0-0.5 [facility] Comment on above: Performed By: #### C BC ####[facility] Ontiysmzlh38[address] [place], [place] [address]Dr. Chrissy Frazier LYMPH # 2.5 103/ul Normal 1.2-3.8 [facility] Comment on above: Performed By: #### C BC ####[facility] Fpddaaffoo[address] [place], [place] [address]Dr. Chrissy Frazier Lymphocytes/100 WBC (Bld) 16.3 % Critically low 20.5-60.0 [facility] Comment on above: Performed By: #### C BC ####[facility] Fuzgesuixr24[address] [place], [place] [address]Dr. Chrissy Frazier MANUAL DIFF REQ NO Normal [facility] Comment on above: Performed By: #### C BC ####[facility] Bboghpenyj55[address] [place] [id number] Chrissy Freddie MCH (RBC) [Entitic mass] 28.1 pg Normal 25.9-34.0 [facility] Comment on above: Performed By: #### C BC ####[facility] Jbmeiicysd0860 [place] [address]Dr. Chrissy Frazeir MCHC (RBC) [Mass/Vol] 33.2 g/dL Normal 29.9-35.2 [facility] Comment on above: Performed By: #### C BC ####[facility] Pknvmstlgy4934 [place] [address]DrNancy Frazier MCV (RBC) [Entitic vol] 84.8 fL Normal 80.0-94.0 [facility] Comment on above: Performed By: #### C BC ####[facility] Bpjnoucyji61[address] [place], [place] [address]DrNancy Frazier MONO # 1.1 103/ul Critically high 0.3-0.8 [facility] Comment on above: Performed By: #### C BC ####[facility] Sorxnrqjhe3923[address] [place], [place] [address]DrNancy Frazier Monocytes/100 WBC (Bld) 7.4 % Normal 1.7-12.0 [facility] Comment on above: Performed By: #### C BC ####[facility] Uuxueytodc366[address] [place], [place] [address]DrNancy Frazier NEUT # 11.5 103/ul Critically high 1.4-6.5 [facility] Comment on above: Performed By: #### C BC ####[facility] [address]ywsder[address] [place], [place] [address]DrNancy Frazier Neutrophils/100 WBC (Bld) 75.7 % Critically high 43.0-75.0 [facility] Comment on above: Performed By: #### C BC ####[facility] Nptjmokwqo[address] [place], [place] [address]DrNancy Frazier Platelet mean volume (Bld) [Entitic vol] 10.6 fL Normal 9.5-13.5 [facility] Comment on above: Performed By: #### C BC ####[facility] Vglmdnaswj0734 [place] [address]Dr. Chrissy Frazier PLT 310 103/ul Normal 150-450 [facility] Comment on above: Performed By: #### C BC ####[facility] Bsqrcofojl8042 [place] [address]Dr. Chrissy Frazier RBC 5.01 106/ul Normal 4.70-6.10 [facility] Comment on above: Performed By: #### C BC ####[facility] Mefvqyctio9754 [place] [address]Dr. Chrissy Frazier WBC 15.2 103/ul Critically high 4.0-11.0 [facility] Comment on above: Performed By: #### C BC ####[facility] Zstomrkhdd[address] [place], [place] [address]Dr. Chrissy Frazier LIPASEon 09-03-2022 Lipase [Catalytic activity/Vol] 46.0 U/L Critically low 73.0-393.0 [facility] Comment on above: Performed By: #### L TERRENCE VICTORIA, CMP ####[facility] [address]weatrghnn[address] [place], [place] [address]Dr. Chrissy Frazier PROF 14(COMP METB)on 022 Albumin [Mass/Vol] 3.7 g/dL Normal 3.4-5.0 [facility] Comment on above: Performed By: #### L TERRENCE VICTORIA, CMP ####[facility] Sizimipjqu[address] [place], [place] [address]Dr. Chrissy Frazier Albumin/Globulin [Mass ratio] 1.0 {ratio} Normal [facility] Comment on above: Performed By: #### L TERRENCE VICTORIA, CMP ####[facility] Xtogccvvea[address] [place], [place] [address]Dr. Chrissy Frazier ALP [Catalytic activity/Vol] 65 U/L Normal 46-116 [facility] Comment on above: Performed By: #### L TERRENCE VICTORIA, CMP ####[facility] [address]rkwsptjw[address] [place] [phone]. Chrissy rFazier ALT [Catalytic activity/Vol] 42 U/L Normal 16-63 [facility] Comment on above: Performed By: #### L TERRENCE VICTORIA, CMP ####[facility] Oiirxvagou[address] [place] [address]Dr. Chrissy Frazier Anion gap [Moles/Vol] 14.4 mmol/L Normal [facility] Comment on above: Performed By: #### L TERRENCE VICTORIA, CMP ####[facility] Qwolljemcy20[address] [place], [place] [address]Dr. Chrissy Frazier AST [Catalytic activity/Vol] 16 U/L Normal 15-37 [facility] Comment on above: Performed By: #### L TERRENCE VICTORIA, CMP ####[facility] Iawqaeknso[address] [place], [place] [address]Dr. Chrissy Frazier Bilirubin [Mass/Vol] 0.4 mg/dL Normal 0.2-1.0 [facility] Comment on above: Performed By: #### L TERRENCE VICTORIA, CMP ####[facility] Rrpbohyxrc[address] [place], [place] [address]Dr. Chrissy Frazier Calcium [Mass/Vol] 8.7 mg/dL Normal 8.5-10.1 [facility] Comment on above: Performed By: #### L TERRENCE VICTORIA, CMP ####[facility] Ihsasikwxd[address] [place], [place] [address]Dr. Chrissy Frazier Chloride [Moles/Vol] 105 mmol/L Normal 98-107 [facility] Comment on above: Performed By: #### L TERRENCE VICTORIA, CMP ####[facility] Wqdssaegmt7[address] [place] [address]Dr. Chrissy Frazier CO2 [Moles/Vol] 22.6 mmol/L Normal 21.0-32.0 [facility] Comment on above: Performed By: #### L TERRENCE VICTORIA, CMP ####[facility] Kfsnqiyjqc[address] [place], [place] [address]Dr. Chrissy Frazier Creatinine [Mass/Vol] 1.11 mg/dL Normal 0.70-1.30 [facility] Comment on above: Performed By: #### L IPA TERRENCE, CMP ####[facility] [address]yxeyarlfu[address] [place] [phone]. Chrissy Frazier EGFR-AF MONEGASQUE >60 Normal >=60 [facility] Comment on above: Performed By: #### L IPA TERRENCE, CMP ####[facility] Ozcydrmpxy0979 [place] [phone]. Chrissy Fraizer EGFR-NON AF MONEGASQUE >60 Normal >=60 [facility] Comment on above: Performed By: #### L IPA TERRENCE, CMP ####[facility] Gpbaodeshj4730 [place] [address]Dr. Chrissy Frazier Globulin (S) [Mass/Vol] 3.7 g/dL Normal [facility] Comment on above: Performed By: #### L JULIEN TERRENCE, CMP ####[facility] Mqjhnkvawg2148 [place] [address]Dr. Chrissy Frazier Glucose [Mass/Vol] 121 mg/dL Critically high 74-106 [facility] Comment on above: Performed By: #### L JULIEN TERRENCE, CMP ####[facility] Mdvtangrro8[address] [place] [address]Dr. Chrissy Frazier Potassium [Moles/Vol] 4.0 mmol/L Normal 3.5-5.1 [facility] Comment on above: Performed By: #### L JULIEN TERRENCE, CMP ####[facility] Nnhlvtjzgk9622 [place] [address]Dr. Chrissy Frazier Protein [Mass/Vol] 7.4 g/dL Normal 6.4-8.2 [facility] Comment on above: Performed By: #### L JULIEN TERRENCE, CMP ####[facility] Xknxogaueh7866 [place] [address]Dr. Chrissy Frazier Sodium [Moles/Vol] 138 mmol/L Normal 136-145 [facility] Comment on above: Performed By: #### L IPA TERRENCE, CMP ####[facility] Rlvoxxffui7672 [place] [address]Dr. Chrissy Frazier Urea nitrogen [Mass/Vol] 6.0 mg/dL Critically low 7.0-18.0 [facility] Comment on above: Performed By: #### L IPA, TERERNCE, CMP ####[facility] Vtfzaianeo[address] [place], [place] [address]Dr. Chrissy Frazier Urea nitrogen/Creatinine [Mass ratio] 5.4 mg/mg Normal [facility] Comment on above: Performed By: #### L IPA, TERRENCE, CMP ####[facility] Amexlmzfva524[address] [place], [place] [address]Dr. Chrissy Frazier AMYLASEon 09-02-2022 Amylase [Catalytic activity/Vol] 29 U/L Normal 25-115 [facility] Comment on above: Performed By: #### A MY, CMP, LIPA ####[facility] Uctqngoyex418[address] [place], [place] [address]Dr. Chrissy Frazier CBC AUTO DIFFon 09-02-2022 BASO # 0.1 103/ul Normal 0.0-0.1 [facility] Comment on above: Performed By: #### C BC ####[facility] Vkzqlzynfp9[address] [place], [place] [address]Dr. Chrissy Frazier Basophils/100 WBC (Bld) 0.4 % Normal 0.2-2.0 [facility] Comment on above: Performed By: #### C BC ####[facility] Ggeetydteo817[address] [place], [place] [address]Dr. Chrissy Frazier EO # 0.1 103/ul Normal 0.0-0.7 [facility] Comment on above: Performed By: #### C BC ####[facility] Fhapdhefnm88[address] [place], [place] [address]Dr. Chrissy Frazier Eosinophils/100 WBC (Bld) 0.7 % Critically low 0.9-7.0 [facility] Comment on above: Performed By: #### C BC ####[facility] Gorzalvtzf25[address] [place], [place] [address]Dr. Chrissy Frazier Erythrocyte distribution width (RBC) [Ratio] 13.7 % Normal 11.0-15.0 [facility] Comment on above: Performed By: #### C BC ####[facility] Efkxtkfpdn4377 [place] [phone]. Chrissy Frazier Hematocrit (Bld) [Volume fraction] 48.3 % Normal 42.0-54.0 [facility] Comment on above: Performed By: #### C BC ####[facility] Ocdamuldja5017 [place] [phone]. Chrissy Frazier Hemoglobin (Bld) [Mass/Vol] 16.0 g/dL Normal 14.0-18.0 [facility] Comment on above: Performed By: #### C BC ####[facility] Wteubywbgd30[address] [place] [phone]. Chrissy Freddie IG # 0.09 10e3/ul Critically high 0.00-0.03 [facility] Comment on above: Performed By: #### C BC ####[facility] Ixcjmzensl2211 [place] [address]Dr. Chrissy Frazier IG % 0.5 % Normal 0.0-0.5 [facility] Comment on above: Performed By: #### C BC ####[facility] Ivluoglxmj0428 [place] [address]Dr. Tishrowan Frazier LYMPH # 3.7 103/ul Normal 1.2-3.8 [facility] Comment on above: Performed By: #### C BC ####[facility] Hytxpnpjwn5594 [place] [address]Dr. Tishrowan Frazier Lymphocytes/100 WBC (Bld) 21.5 % Normal 20.5-60.0 [facility] Comment on above: Performed By: #### C BC ####[facility] Fyxtgsindl3156 [place] [phone]. Tishrowan Frazier MANUAL DIFF REQ NO Normal [facility] Comment on above: Performed By: #### C BC ####[facility] Errmnxrxrm5983 [place] [address]Dr. Chrissy Freddie MCH (RBC) [Entitic mass] 28.1 pg Normal 25.9-34.0 [facility] Comment on above: Performed By: #### C BC ####[facility] Sljrfozbhb1607 [place] [phone]. Chrissy Frazier MCHC (RBC) [Mass/Vol] 33.1 g/dL Normal 29.9-35.2 [facility] Comment on above: Performed By: #### C BC ####[facility] Pgrpskmncd3612 [place] [phone]. Chrissy Frazier MCV (RBC) [Entitic vol] 84.7 fL Normal 80.0-94.0 [facility] Comment on above: Performed By: #### C BC ####[facility] Hfmsaddxnw0305 [place] [phone]. Chrissy Frazier MONO # 0.7 103/ul Normal 0.3-0.8 [facility] Comment on above: Performed By: #### C BC ####[facility] Osuugafqqt7116 [place] [address]Dr. Chrissy Frazier Monocytes/100 WBC (Bld) 4.2 % Normal 1.7-12.0 [facility] Comment on above: Performed By: #### C BC ####[facility] Lzvvctpqke[address] [place], [place] [address]Dr. Chrissy Frazier NEUT # 12.4 103/ul Critically high 1.4-6.5 [facility] Comment on above: Performed By: #### C BC ####[facility] Vcxzlmrqxj9620 [place] [phone]. Chrissy Frazier Neutrophils/100 WBC (Bld) 72.7 % Normal 43.0-75.0 [facility] Comment on above: Performed By: #### C BC ####[facility] Buetgdmzcx3341 [place] [phone]. Chrissy Frazier Platelet mean volume (Bld) [Entitic vol] 10.9 fL Normal 9.5-13.5 [facility] Comment on above: Performed By: #### C BC ####[facility] Fcvraaohhi3007 [place] [phone]. Chrissy Freddie PLT 386 103/ul Normal 150-450 [facility] Comment on above: Performed By: #### C BC ####[facility] [address]upoax[address] [place], [place] [address]Mg. Chrissy Frazier RBC 5.70 106/ul Normal 4.70-6.10 [facility] Comment on above: Performed By: #### C BC ####[facility] Nsjrzlteic3808 [place] [phone]. Chrissy Frazier WBC 17.0 103/ul Critically high 4.0-11.0 [facility] Comment on above: Performed By: #### C BC ####[facility] Thdcmdwmff2312 [place] [phone]. Chrissy Frazier Covid-19 PCR (CVDTBH)on 08-21 SARS-CoV-2 (COVID-19) RNA RHIANNON+probe Ql (Unsp spec) Not detected Normal NOT DETECTED [facility] Comment on above: Result Comment: [...] for this test is supported by the [place] of [employer] and Human Service's declaration that [...] be used). Performed By: #### C VDTBH ####[facility] Wcoywqhfip2225 [place] [phone]. Chrissy Frazier LACTATE/LACTIC ACIDon 2021 Lactate [Moles/Vol] 7.1 mmol/L Critically high 0.4-1.9 [facility] Comment on above: Performed By: #### L ACT ####[facility] Afoywyegjt8359 [place] [phone]. Chrissy Frazier Lactate [Moles/Vol] 8.6 mmol/L Critically high 0.4-1.9 [facility] Comment on above: Performed By: #### L ACT ####[facility] Mcgzpevpff30[address] [place], [place] [address]Dr. Chrissy Frazier LIPASEon 09-02-2022 Lipase [Catalytic activity/Vol] 60.0 U/L Critically low 73.0-393.0 [facility] Comment on above: Performed By: #### A MY, CMP, LIPA ####[facility] Rrlfrczteh9512[address] [place], [place] [address]Dr. Chrissy Frazier POINT OF CARE GLUCOSEon 08-21 Glucose [Mass/Vol] 140 mg/dL Critically high 74-106 [facility] Comment on above: Performed By: #### P OCGLUC ####[facility] Bofoymzava[address] [place], [place] [address]Dr. Chrissy Frazier PROF 14(COMP METB)on 022 Albumin [Mass/Vol] 4.3 g/dL Normal 3.4-5.0 [facility] Comment on above: Performed By: #### A MY, CMP, LIPA ####[facility] Kebsahmerk74[address] [place], [place] [address]Dr. Chrissy Frazier Albumin/Globulin [Mass ratio] 1.0 {ratio} Normal [facility] Comment on above: Performed By: #### A MY, CMP, LIPA ####[facility] Jvxxpijshk1074 [place] [phone]. Chrissy Frazier ALP [Catalytic activity/Vol] 82 U/L Normal 46-116 [facility] Comment on above: Performed By: #### A MY, CMP, LIPA ####[facility] Pztgaefqdg6855 [place] [address]Dr. Chrissy Frazier ALT [Catalytic activity/Vol] 48 U/L Normal 16-63 [facility] Comment on above: Performed By: #### A MY, CMP, LIPA ####[facility] Pjqzbqgpcv5651 [place] [address]Dr. Chrissy Frazier Anion gap [Moles/Vol] 25.3 mmol/L Normal [facility] Comment on above: Performed By: #### A MY, CMP, LIPA ####[facility] Toxiayfjes0556 [place] [address]Dr. Chrissy Frazier AST [Catalytic activity/Vol] 33 U/L Normal 15-37 [facility] Comment on above: Performed By: #### A MY, CMP, LIPA ####[facility] Agvwzbgovb7127[address] [place], [place] [address]Dr. Chrissy Frazier Bilirubin [Mass/Vol] 0.7 mg/dL Normal 0.2-1.0 [facility] Comment on above: Performed By: #### A MY, CMP, LIPA ####[facility] Ozwuyyqdpf07[address] [place], [place] [address]Dr. Chrissy Frazier Calcium [Mass/Vol] 9.5 mg/dL Normal 8.5-10.1 [facility] Comment on above: Performed By: #### A MY, CMP, LIPA ####[facility] Wlsasjevee49[address] [place], [place] [address]Dr. Chrissy Frazier Chloride [Moles/Vol] 100 mmol/L Normal 98-107 [facility] Comment on above: Performed By: #### A MY, CMP, LIPA ####[facility] Qcyuvelkzy6313[address] [place], [place] [address]Dr. Chrissy Frazier CO2 [Moles/Vol] 14.2 mmol/L Critically low 21.0-32.0 [facility] Comment on above: Performed By: #### A MY, CMP, LIPA ####[facility] Gazopxinap2823[address] [place], [place] [address]Dr. Chrissy Frazier Creatinine [Mass/Vol] 1.70 mg/dL Critically high 0.70-1.30 [facility] Comment on above: Performed By: #### A MY, CMP, LIPA ####[facility] Uypteawnsx2159[address] [place], [place] [address]Dr. Chrissy Frazier EGFR-AF MONEGASQUE 57 mL/min/1.73m2 Critically low >=60 [facility] Comment on above: Performed By: #### A MY, CMP, LIPA ####[facility] Wchphnxrwv8348 [place] [phone]. Chrissy Frazier EGFR-NON AF MONEGASQUE 47 mL/min/1.73m2 Critically low >=60 [facility] Comment on above: Performed By: #### A MY, CMP, LIPA ####[facility] Azmojnvvpa5960 [place] [address]Dr. Chrissy Frazier Globulin (S) [Mass/Vol] 4.2 g/dL Normal [facility] Comment on above: Performed By: #### A MY, CMP, LIPA ####[facility] Imefhfwbtm0641 [place] [address]Dr. Chrissy Frazier Glucose [Mass/Vol] 212 mg/dL Critically high 74-106 [facility] Comment on above: Performed By: #### A MY, CMP, LIPA ####[facility] Qootaapfbe4132 [place] [address]Dr. Chrissy Frazier Potassium [Moles/Vol] 3.5 mmol/L Normal 3.5-5.1 [facility] Comment on above: Performed By: #### A MY, CMP, LIPA ####[facility] Ilxjkcajvb8555 [place] [address]Dr. Chrissy Frazier Protein [Mass/Vol] 8.5 g/dL Critically high 6.4-8.2 [facility] Comment on above: Performed By: #### A MY, CMP, LIPA ####[facility] Dxrpotlwuz7925 [place] [address]Dr. Chrissy Frazier Sodium [Moles/Vol] 136 mmol/L Normal 136-145 [facility] Comment on above: Performed By: #### A MY, CMP, LIPA ####[facility] Xjegaxcsua8998 [place] [address]Dr. Chrissy Frazier Urea nitrogen [Mass/Vol] 9.0 mg/dL Normal 7.0-18.0 [facility] Comment on above: Performed By: #### A MY, CMP, LIPA ####[facility] Adnvbemxhn4337 [place] [address]Dr. Yilan Frazier Urea nitrogen/Creatinine [Mass ratio] 5.3 mg/mg Normal [facility] Comment on above: Performed By: #### A MY, CMP, LIPA ####[facility] Ofsbrqghkr[address] [place], [place] [address]Dr. Chrissy Frazier AMYLASEon 07-07-2022 Amylase [Catalytic activity/Vol] 33 U/L Normal 25-115 [facility] Comment on above: Performed By: #### C MP, TERRENCE, BNP, LIPA ####[facility] Zqitfbiirf517[address] [place], [place] [address]Dr. Chrissy Frazier BNPon 07-07-2022 Natriuretic peptide B (Bld) [Mass/Vol] 29.0 pg/mL Normal <=450.0 [facility] Comment on above: Performed By: #### C MP, TERRENCE, BNP, LIPA ####[facility] Mnokicpvwa7158[address] [place], [place] [address]Dr. Chrissy Frazier CBC AUTO DIFFon 07-07-2022 BASO # 0.0 103/ul Normal 0.0-0.1 [facility] Comment on above: Performed By: #### C BC ####[facility] Yiphicnojt358[address] [place], [place] [address]Dr. Chrissy Frazier Basophils/100 WBC (Bld) 0.4 % Normal 0.2-2.0 [facility] Comment on above: Performed By: #### C BC ####[facility] Uervmspijq612[address] [place], [place] [address]Dr. Chrissy Frazier EO # 0.3 103/ul Normal 0.0-0.7 [facility] Comment on above: Performed By: #### C BC ####[facility] Nbebmyywgw7357[address] [place], [place] [address]Dr. Chrissy Frazier Eosinophils/100 WBC (Bld) 3.0 % Normal 0.9-7.0 [facility] Comment on above: Performed By: #### C BC ####[facility] Iojvediglt6210[address] [place], [place] [address]Dr. Chrissy Frazier Erythrocyte distribution width (RBC) [Ratio] 14.0 % Normal 11.0-15.0 [facility] Comment on above: Performed By: #### C BC ####[facility] Gbtdffqbsn4289 [place] [address]DrNancy Frazier Hematocrit (Bld) [Volume fraction] 42.8 % Normal 42.0-54.0 [facility] Comment on above: Performed By: #### C BC ####[facility] Hxwhbzhhms2501 [place] [address]DrNancy Frazier Hemoglobin (Bld) [Mass/Vol] 14.3 g/dL Normal 14.0-18.0 [facility] Comment on above: Result Comment: IV F LUIDS RUNNING Performed By: #### C BC ####[facility] Arwceqbyfv152[address] [place], [place] [address]DrNancy Frazier IG # 0.05 10e3/ul Critically high 0.00-0.03 [facility] Comment on above: Performed By: #### C BC ####[facility] Zllggcfaxw4039[address] [place], [place] [address]DrNancy Frazier IG % 0.5 % Normal 0.0-0.5 [facility] Comment on above: Performed By: #### C BC ####[facility] Pbousxjmiu4399[address] [place], [place] [address]DrNancy Frazier LYMPH # 2.4 103/ul Normal 1.2-3.8 [facility] Comment on above: Performed By: #### C BC ####[facility] Qahbthyjor768[address] [place], [place] [address]DrNancy Frazier Lymphocytes/100 WBC (Bld) 25.5 % Normal 20.5-60.0 [facility] Comment on above: Performed By: #### C BC ####[facility] Mcprqakhmv096[address] [place], [place] [address]DrNancy Frazier MANUAL DIFF REQ NO Normal [facility] Comment on above: Performed By: #### C BC ####[facility] Zktliwfifv5286 [place] [address]DrNancy Frazier MCH (RBC) [Entitic mass] 28.5 pg Normal 25.9-34.0 [facility] Comment on above: Performed By: #### C BC ####[facility] Qmejmewzkl0778 [place] [address]Dr. Chrissy Frazier MCHC (RBC) [Mass/Vol] 33.4 g/dL Normal 29.9-35.2 [facility] Comment on above: Performed By: #### C BC ####[facility] Jzrklmerci3143 [place] [address]Dr. Chrissy Frazier MCV (RBC) [Entitic vol] 85.3 fL Normal 80.0-94.0 [facility] Comment on above: Performed By: #### C BC ####[facility] Elqudnzanr67[address] [place], [place] [address]DrNancy Frazier MONO # 0.7 103/ul Normal 0.3-0.8 [facility] Comment on above: Performed By: #### C BC ####[facility] Dtwhpsieyu[address] [place], [place] [address]Dr. Chrissy Frazier Monocytes/100 WBC (Bld) 7.8 % Normal 1.7-12.0 [facility] Comment on above: Performed By: #### C BC ####[facility] Lpwqkhgozx2667[address] [place], [place] [address]Dr. Chrissy Frazier NEUT # 5.8 103/ul Normal 1.4-6.5 [facility] Comment on above: Performed By: #### C BC ####[facility] Wtszmirdaq525[address] [place], [place] [address]Dr. Chrissy Frazier Neutrophils/100 WBC (Bld) 62.8 % Normal 43.0-75.0 [facility] Comment on above: Performed By: #### C BC ####[facility] Hqmlywrkpk[address] [place], [place] [address]Dr. Chrissy Frazier Platelet mean volume (Bld) [Entitic vol] 10.8 fL Normal 9.5-13.5 [facility] Comment on above: Performed By: #### C BC ####[facility] Ebrehtjryg2[address] [place], [place] [address]Dr. Chrissy Frazier PLT 310 103/ul Normal 150-450 [facility] Comment on above: Performed By: #### C BC ####[facility] Fmezihkdpb0471 [place] [phone]. Chrissy Frazier RBC 5.02 106/ul Normal 4.70-6.10 [facility] Comment on above: Performed By: #### C BC ####[facility] Y[address]prgsudkb80[address] [place], [place] [address]Et. Chrissy Frazier WBC 9.3 103/ul Normal 4.0-11.0 [facility] Comment on above: Performed By: #### C BC ####[facility] Dfefvvizyj6034 [place] [phone]. Tishrowan Freddie CULTURE URINEon 07-07-2022 CULTURE URINE Culture Observations: NO GROWTH. Normal [facility] Comment on above: Performed By: #### U RCX ####[facility] Wdrfzvnsfu1457 [place] [phone]. Chrissy Frazier DRUG SCREEN RAPID (URINE)on 07-07-2022 AMP Negative Normal NEGATIVE [facility] Comment on above: Performed By: #### D RUGRPD ####[facility] Mdzxksfvff3813 [place] [phone]. Chrissy Frazier BAR Negative Normal NEGATIVE [facility] Comment on above: Performed By: #### D RUGRPD ####[facility] Ivlmoormdh1670 [place] [phone]. Chrissy Frazier BUP Negative Normal NEGATIVE [facility] Comment on above: Performed By: #### D RUGRPD ####[facility] Cklasqjucj0348 [place] [phone]. Chrissy Frazier BZO Positive Abnormal NEGATIVE [facility] Comment on above: Performed By: #### D RUGRPD ####[facility] Sayapkaugg6218 [place] [phone]. Chrissy Frazier LAUREN Negative Normal NEGATIVE [facility] Comment on above: Performed By: #### D RUGRPD ####[facility] Npunftuqkq9815 [place] [phone]. Chrissy Frazier CUT-OFFS SEE BELOW Normal [facility] Comment on above: Result Comment: [...] 300 ng/mL Performed By: #### D RUGRPD ####[facility] Gcoipwkxat44[address] [place], [place] [address]Dr. [facility] DRUG CUT HEADER DRUG CLASS TEST SYSTEM CUT-OFF CONCENTRATIONS ARE FOLLOWS: Normal [facility] Comment on above: Performed By: #### D RUGRPD ####[facility] Qslwqvhijp86[address] [place], [place] [address]Dr. Tishrowan [facility] mAMP Negative Normal NEGATIVE [facility] Comment on above: Performed By: #### D RUGRPD ####[facility] Pnntbkgcgl0812[address] [place], [place] [address]Dr. Chrissy [facility] MTD Negative Normal NEGATIVE [facility] Comment on above: Performed By: #### D RUGRPD ####[facility] Lubwzcsgvb[address] [place], [place] [address]Dr. Chrissy [facility] OPI Negative Normal NEGATIVE [facility] Comment on above: Performed By: #### D RUGRPD ####[facility] Tdyfqidopr40[address] [place], [place] [address]Dr. Chrissy Frazier OXY Negative Normal NEGATIVE [facility] Comment on above: Performed By: #### D RUGRPD ####[facility] Zbjeiwwvob4[address] [place], [place] [address]Dr. Chrissy [facility] PCP Negative Normal NEGATIVE [facility] Comment on above: Performed By: #### D RUGRPD ####[facility] Pdakgoiyij[address] [place], [place] [address]Dr. Chrissy Freddie PPX Negative Normal NEGATIVE [facility] Comment on above: Performed By: #### D RUGRPD ####[facility] Jssswiomtz4006 [place] [address]Dr. Chrissy Freddie TCA Positive Abnormal NEGATIVE [facility] Comment on above: Performed By: #### D RUGRPD ####[facility] Aermpzobcv9267 [place] [address]Dr. Chrissy Freddie THC Positive Abnormal NEGATIVE [facility] Comment on above: Performed By: #### D RUGRPD ####[facility] Ftfdylrfpc8690 [place] [address]Dr. Tishrowan Frazier LIPASEon 07-07-2022 Lipase [Catalytic activity/Vol] 118.0 U/L Normal 73.0-393.0 [facility] Comment on above: Performed By: #### L IPA ####[facility] Edovcwlsiq[address] [place], [place] [address]Dr. Chrissy Frazier Lipase [Catalytic activity/Vol] 114.0 U/L Normal 73.0-393.0 [facility] Comment on above: Performed By: #### C MP, TERRENCE, BNP, LIPA ####[facility] Wdhjwwzymw[address] [place], [place] [address]Dr. Chrissy Frazier PROF 14(COMP METB)on 022 Albumin [Mass/Vol] 3.4 g/dL Normal 3.4-5.0 [facility] Comment on above: Performed By: #### C MP, TERRENCE, BNP, LIPA ####[facility] Pyffzrwadz7179 [place] [place] [id number]. Chrissy Frazier Albumin/Globulin [Mass ratio] 1.1 {ratio} Normal [facility] Comment on above: Performed By: #### C MP, TERRENCE, BNP, LIPA ####[facility] Ebfvikeiha50[address] [place] [address]Dr. Chrissy Frazier ALP [Catalytic activity/Vol] 68 U/L Normal 46-116 [facility] Comment on above: Performed By: #### C MP, TERRENCE, BNP, LIPA ####[facility] Ysjkdbtzrc9712 [place] [address]Dr. Chrissy Frazier ALT [Catalytic activity/Vol] 93 U/L Critically high 16-63 [facility] Comment on above: Performed By: #### C MP, TERRENCE, BNP, LIPA ####[facility] Sndkiesarv0603 [place] [address]Dr. Chrissy Frazier Anion gap [Moles/Vol] 14.4 mmol/L Normal [facility] Comment on above: Performed By: #### C MP, TERRENCE, BNP, LIPA ####[facility] Csjodstnok8649 [place] [address]Dr. Chrissy Frazier AST [Catalytic activity/Vol] 33 U/L Normal 15-37 [facility] Comment on above: Performed By: #### C MP, TERRENCE, BNP, LIPA ####[facility] Omztrphhxt8157 [place] [address]Dr. Chrissy Frazier Bilirubin [Mass/Vol] 0.9 mg/dL Normal 0.2-1.0 [facility] Comment on above: Performed By: #### C MP, TERRENCE, BNP, LIPA ####[facility] Hemharlkpi37[address] [place], [place] [address]Dr. Chrissy Frazier Calcium [Mass/Vol] 8.2 mg/dL Critically low 8.5-10.1 [facility] e [facility] Comment on above: Performed By: #### C MP, TERRENCE, BNP, LIPA ####[facility] Rbfgkohash[address] [place], [place] [address]Dr. Chrissy Frazier Chloride [Moles/Vol] 103 mmol/L Normal 98-107 [facility] Comment on above: Performed By: #### C MP, TERRENCE, BNP, LIPA ####[facility] Jthuybsgbk77[address] [place], [place] [address]Dr. Chrissy Frazier CO2 [Moles/Vol] 22.9 mmol/L Normal 21.0-32.0 The [facility] Comment on above: Performed By: #### C MP, TERRENCE, BNP, LIPA ####[facility] Bjqyybqecg7[address] [place], [place] [address]Dr. Chrissy Frazier Creatinine [Mass/Vol] 1.07 mg/dL Normal 0.70-1.30 [facility] Comment on above: Performed By: #### C MP, TERRENCE, BNP, LIPA ####[facility] Ubfwomiwrn7145 [place] [address]Dr. Chrissy Frazier EGFR-AF MONEGASQUE >60 Normal >=60 The [facility] Comment on above: Performed By: #### C MP, TERRENCE, BNP, LIPA ####[facility] Oppbtsspjc2567 [place] [address]Dr. Chrissy Frazier EGFR-NON AF MONEGASQUE >60 Normal >=60 [facility] Comment on above: Performed By: #### C MP, TERRENCE, BNP, LIPA ####[facility] Eliwnlyism8759 [place] [address]Dr. Chrissy Frazier Globulin (S) [Mass/Vol] 3.2 g/dL Normal [facility] Comment on above: Performed By: #### C MP, TERRENCE, BNP, LIPA ####[facility] Drulnozjld1223[address] [place], [place] [address]Dr. Chrissy Frazier Glucose [Mass/Vol] 96 mg/dL Normal 74-106 [facility] Comment on above: Performed By: #### C MP, TERRENCE, BNP, LIPA ####[facility] Pxzkrpalwe5047 [place] [address]Dr. Chrissy Frazier Potassium [Moles/Vol] 3.3 mmol/L Critically low 3.5-5.1 [facility] Comment on above: Performed By: #### C MP, TERRENCE, BNP, LIPA ####[facility] Mfyvnirwvr3645 [place] [address]Dr. Chrissy Frazier Protein [Mass/Vol] 6.6 g/dL Normal 6.4-8.2 [facility] Comment on above: Performed By: #### C MP, TERRENCE, BNP, LIPA ####[facility] Itkpusnvdl5080 [place] [address]Dr. Chrissy Frazier Sodium [Moles/Vol] 137 mmol/L Normal 136-145 [facility] Comment on above: Performed By: #### C MP, TERRENCE, BNP, LIPA ####[facility] Qbypqetgyv08364[address] [place], [place] [address]Dr. Chrissy Frazier Urea nitrogen [Mass/Vol] 13.0 mg/dL Normal 7.0-18.0 [facility] Comment on above: Performed By: #### C MP, TERRENCE, BNP, LIPA ####[facility] Xxosnmwqiq0189[address] [place], [place] [address]Dr. Chrissy Frazier Urea nitrogen/Creatinine [Mass ratio] 12.1 mg/mg Normal [facility] Comment on above: Performed By: #### C MP, TERRENCE, BNP, LIPA ####[facility] Vqoqhdombj4485[address] [place], [place] [address]Dr. Chrissy Frazier UA RANDOM W/MICROSCOPICon BACTERIA TRACE Abnormal NONE SEEN [facility] Comment on above: Performed By: #### U AMIC ####[facility] Qmktzqakqu618[address] [place], [place] [address]Dr. Chrissy Frazier Bilirubin Ql (U) Negative Normal NEGATIVE The [facility] Comment on above: Performed By: #### U AMIC ####[facility] Yhayzxgyvl700[address] [place], [place] [address]Dr. Chrissy Frazier CAST NONE SEEN Normal NONE SEEN [facility] Comment on above: Performed By: #### U AMIC ####[facility] Rqcckpohkj4369[address] [place], [place] [address]Dr. Chrissy Frazier Clarity (U) CLEAR Normal CLEAR [facility] Comment on above: Performed By: #### U AMIC ####[facility] Nnoqmoryqq7107[address] [place], [place] [address]Dr. Chrissy Frazier Color (U) YELLOW Normal YELLOW [facility] Comment on above: Performed By: #### U AMIC ####[facility] Mhjfabicaj4305[address] [place], [place] [address]Dr. Chrissy Frazier Crystals LM Nom (Urine sed) SEEN Abnormal NONE SEEN [facility] Comment on above: Performed By: #### U AMIC ####[facility] Wwfyeqerua0828[address] [place], [place] [address]Dr. Chrissy Frazier Epithelial cells LM Ql (Urine sed) RARE Normal NONE SEEN /RARE [facility] Comment on above: Performed By: #### U AMIC ####[facility] Wjulydsikf8587 [place] [address]Dr. Chrissy Frazier Glucose Ql (U) Negative Normal NEGATIVE The [facility] Comment on above: Performed By: #### U AMIC ####[facility] Josugerjlg340[address] [place], [place] [address]Dr. Chrissy Frazier Hemoglobin Ql (U) Negative Normal NEGATIVE The [facility] Comment on above: Performed By: #### U AMIC ####[facility] Qqogocrmok419[address] [place], [place] [address]Dr. Chrissy Frazier Ketones Ql (U) 15 mg/dl Abnormal NEGATIVE The [facility] Comment on above: Performed By: #### U AMIC ####[facility] Vycewgdvxk7811[address] [place], [place] [address]Dr. Chrissy Frazier LEUKOCYTES Negative Normal NEGATIVE [facility] Comment on above: Performed By: #### U AMIC ####[facility] Btikonmrfo583[address] [place], [place] [address]Dr. Chrissy Frazier MUCOUS NONE SEEN Normal NONE SEEN [facility] Comment on above: Performed By: #### U AMIC ####[facility] Ctuzecyrfg9195[address] [place], [place] [address]Dr. Chrissy Frazier Nitrite Ql (U) Negative Normal NEGATIVE The [facility] Comment on above: Performed By: #### U AMIC ####[facility] Xzafhxbfym734[address] [place], [place] [address]Dr. Chrissy Frazier pH (U) 6.0 [pH] Normal 5-9 [facility] Comment on above: Performed By: #### U AMIC ####[facility] Nrfpyjplos659[address] [place], [place] [address]Dr. Chrissy Frazier RBC 0-2 Normal 0-2 [facility] Comment on above: Performed By: #### U AMIC ####[facility] Vqjaxikdbp6605[address] [place], [place] [address]Dr. Chrissy Frazier SPEC GRAVITY 1.015 Normal 1.005-<=1.025 The [facility] Comment on above: Performed By: #### U AMIC ####[facility] Gcbdrjkfwa0609 [place] [address]Dr. Chrissy Frazier UA PROTEIN Negative Normal NEGATIVE/ TRACE The [facility] Comment on above: Performed By: #### U AMIC ####[facility] Jujhthusnj3106 [place] [address]Dr. Chrissy Frazier URIC ACID CRYSTALS RARE Normal [facility] Comment on above: Performed By: #### U AMIC ####[facility] Idowqoucei3371 [place] [address]Dr. Chrissy Freddie Urobilinogen Qn (U) 0.2 {Estrellita'U}/dL Normal 0.2 - 1. 0 [facility] Comment on above: Performed By: #### U AMIC ####[facility] Vtoybahogo926[address] [place], [place] [address]Dr. Tishrowan Frazier WBC 0-2 Abnormal NONE SEEN [facility] Comment on above: Performed By: #### U AMIC ####[facility] Dwcpddvfij50264[address] [place], [place] [address]Dr. Chrissy Freddie AMYLASEon 07-06-2022 Amylase [Catalytic activity/Vol] 37 U/L Normal 25-115 [facility] Comment on above: Performed By: #### C MP, LIPA, TERRENCE ####[facility] Gnxwvcosym2799[address] [place], [place] [address]Dr. Chrissy Frazier CBC AUTO DIFFon 07-06-2022 BASO # 0.1 103/ul Normal 0.0-0.1 [facility] Comment on above: Performed By: #### C BC ####[facility] Fzkkseybqy3844[address] [place], [place] [address]Dr. Tishrowan Frazier Basophils/100 WBC (Bld) 0.4 % Normal 0.2-2.0 [facility] Comment on above: Performed By: #### C BC ####[facility] Fxfgmcpwdr146[address] [place], [place] [address]Dr. Chrissy Frazier EO # 0.1 103/ul Normal 0.0-0.7 [facility] Comment on above: Performed By: #### C BC ####[facility] Ixejdikbsv6619 [place] [address]Dr. Chrissy Frazier Eosinophils/100 WBC (Bld) 0.5 % Critically low 0.9-7.0 [facility] Comment on above: Performed By: #### C BC ####[facility] Thxoumzwst8658[address] [place], [place] [address]Dr. Chrissy Frazier Erythrocyte distribution width (RBC) [Ratio] 13.6 % Normal 11.0-15.0 [facility] Comment on above: Performed By: #### C BC ####[facility] Kzgsanpiiw846[address] [place], [place] [address]Dr. Chrissy Frazier Hematocrit (Bld) [Volume fraction] 47.9 % Normal 42.0-54.0 [facility] Comment on above: Performed By: #### C BC ####[facility] Owrbwmwaey45364[address] [place], [place] [address]Dr. Chrissy Frazier Hemoglobin (Bld) [Mass/Vol] 16.4 g/dL Normal 14.0-18.0 [facility] Comment on above: Performed By: #### C BC ####[facility] Sphhzmgwfj79364[address] [place], [place] [address]Dr. Chrissy Frazier IG # 0.09 10e3/ul Critically high 0.00-0.03 [facility] Comment on above: Performed By: #### C BC ####[facility] Wjvxgdaumk3479[address] [place], [place] [address]Dr. Chrissy Frazier IG % 0.6 % Critically high 0.0-0.5 The [facility] Comment on above: Performed By: #### C BC ####[facility] Ywamjoayrh3929[address] [place], [place] [address]Dr. Chrissy Frazier LYMPH # 2.5 103/ul Normal 1.2-3.8 [facility] Comment on above: Performed By: #### C BC ####[facility] Esuoxpbkjp7833[address] [place], [place] [address]Dr. Chrissy Frazier Lymphocytes/100 WBC (Bld) 16.7 % Critically low 20.5-60.0 [facility] Comment on above: Performed By: #### C BC ####[facility] Otmghcsvzm4517 [place] [address]DrNancy Frazier MANUAL DIFF REQ NO Normal [facility] Comment on above: Performed By: #### C BC ####[facility] Aktszznyjp5150 [place] [address]DrNancy Frazier MCH (RBC) [Entitic mass] 28.1 pg Normal 25.9-34.0 [facility] Comment on above: Performed By: #### C BC ####[facility] Dwdxuqqffw207[address] [place], [place] [address]DrNancy Frazier MCHC (RBC) [Mass/Vol] 34.2 g/dL Normal 29.9-35.2 [facility] Comment on above: Performed By: #### C BC ####[facility] Djekzzksls435[address] [place], [place] [address]DrNancy Frazier MCV (RBC) [Entitic vol] 82.2 fL Normal 80.0-94.0 [facility] Comment on above: Performed By: #### C BC ####[facility] Lngvqbibbc6000[address] [place], [place] [address]DrNancy Frazier MONO # 1.0 103/ul Critically high 0.3-0.8 The [facility] Comment on above: Performed By: #### C BC ####[facility] Vjvmwcaawm7195[address] [place], [place] [address]DrNancy Frazier Monocytes/100 WBC (Bld) 6.7 % Normal 1.7-12.0 [facility] Comment on above: Performed By: #### C BC ####[facility] Nckzovyota724[address] [place], [place] [address]DrNancy Frazier NEUT # 11.3 103/ul Critically high 1.4-6.5 The [facility] Comment on above: Performed By: #### C BC ####[facility] Zvylgyshwy4469[address] [place], [place] [address]DrNancy Frazier Neutrophils/100 WBC (Bld) 75.1 % Critically high 43.0-75.0 [facility] Comment on above: Performed By: #### C BC ####[facility] Czkdpjcgis1667 [place] [phone]. Chrissy Frazier Platelet mean volume (Bld) [Entitic vol] 10.6 fL Normal 9.5-13.5 [facility] Comment on above: Performed By: #### C BC ####[facility] Mjryosirlo4516 [place] [phone]. Chrissy Frazier PLT 416 103/ul Normal 150-450 [facility] Comment on above: Performed By: #### C BC ####[facility] Odmmdqtoho1759 [place] [phone]. Chrissy Frazier RBC 5.83 106/ul Normal 4.70-6.10 [facility] Comment on above: Performed By: #### C BC ####[facility] Kwwfmjrurh4011 [place] [phone]. Chrissy Frazier WBC 15.0 103/ul Critically high 4.0-11.0 The [facility] Comment on above: Performed By: #### C BC ####[facility] Vpnggiayxq9210 [place] [phone]. Chrissy Frazier [facility]21 SARS-CoV-2 (COVID-19) RNA RHIANNON+probe Ql (Unsp spec) Not detected Normal NOT DETECTED [facility] Comment on above: Result Comment: [...] for this test is supported by the [employer] and Human Service's declaration that [...] be used). Performed By: #### C VDTBH ####[facility] Viodcrlcku3927 [place] [address]Dr. Chrissy Frazier LIPASEon 07-06-2022 Lipase [Catalytic activity/Vol] 130.0 U/L Normal 73.0-393.0 [facility] Comment on above: Performed By: #### C OSWALD ADAIR, TERRENCE ####[facility] Yrxwnmcfgm3194 [place] [address]Dr. Chrissy Frazier PROF 14(COMP METB)on 022 Albumin [Mass/Vol] 4.4 g/dL Normal 3.4-5.0 [facility] Comment on above: Performed By: #### C MANA LIPA, TERRENCE ####[facility] Glcinceofw080[address] [place], [place] [address]Dr. Chrissy Frazier Albumin/Globulin [Mass ratio] 1.1 {ratio} Normal [facility] Comment on above: Performed By: #### C OSWALD ADAIR TERRENCE ####[facility] Sxlnebfsbr7564[address] [place], [place] [address]Dr. Chrissy Frazier ALP [Catalytic activity/Vol] 83 U/L Normal 46-116 [facility] Comment on above: Performed By: #### C MANA LIPA, TERRENCE ####[facility] Kfjrjmbwik6759 [place] [address]Dr. Chrissy Frazier ALT [Catalytic activity/Vol] 107 U/L Critically high 16-63 [facility] Comment on above: Performed By: #### C TESSA ADAIRA, TERRENCE ####[facility] Ssphbmqktp8321 [place] [address]Dr. Chrissy Frazier Anion gap [Moles/Vol] 20.5 mmol/L Normal [facility] Comment on above: Performed By: #### C MANA LIPA, TERRENCE ####[facility] Sclyrqzuii6648[address] [place], [place] [address]Dr. Chrissy Frazier AST [Catalytic activity/Vol] 46 U/L Critically high 15-37 [facility] Comment on above: Performed By: #### C OSWALD ADAIR, TERRENCE ####[facility] Crmipeptft7157 [place] [address]Dr. Chrissy Frazier Bilirubin [Mass/Vol] 1.2 mg/dL Critically high 0.2-1.0 [facility] Comment on above: Performed By: #### C TESSA ADAIRA, TERRENCE ####[facility] Txmsijtvwv[address] [place], [place] [address]Dr. Chrissy Frazier Calcium [Mass/Vol] 9.1 mg/dL Normal 8.5-10.1 [facility] Comment on above: Performed By: #### C MANA LIPA, TERRENCE ####[facility] Vtborpcznu2412[address] [place], [place] [address]Dr. Chrissy Frazier Chloride [Moles/Vol] 100 mmol/L Normal 98-107 [facility] Comment on above: Performed By: #### C TESSA ADAIRA, TERRENCE ####[facility] Ttituubjnb7101[address] [place], [place] [address]Dr. Chrissy Frazier CO2 [Moles/Vol] 18.6 mmol/L Critically low 21.0-32.0 [facility] Comment on above: Performed By: #### C MANA LIPA, TERRENCE ####[facility] Yrlthnfokz3710[address] [place], [place] [address]Dr. Chrissy Frazier Creatinine [Mass/Vol] 1.44 mg/dL Critically high 0.70-1.30 [facility] Comment on above: Performed By: #### C MANA LIPA, TERRENCE ####[facility] Dypnrquydp9316[address] [place], [place] [address]Dr. Chrissy Frazier EGFR-AF MONEGASQUE >60 Normal >=60 [facility] Comment on above: Performed By: #### C MP, LIPA, TERRENCE ####[facility] Azpzphjqon3498[address] [place], [place] [address]Dr. Chrissy Frazier EGFR-NON AF MONEGASQUE 57 mL/min/1.73m2 Critically low >=60 [facility] Comment on above: Performed By: #### C MANA LIPA, TERRENCE ####[facility] Ptaigccjld8821 [place] [address]Dr. Chrissy Frazier Globulin (S) [Mass/Vol] 4.0 g/dL Normal [facility] Comment on above: Performed By: #### C MANA LIPA, TERRENCE ####[facility] Krzeddkxty1585 [place] [address]Dr. Chrissy Frazier Glucose [Mass/Vol] 117 mg/dL Critically high 74-106 [facility] Comment on above: Performed By: #### C MANA LIPA, TERRENCE ####[facility] Niquhmzprn8033[address] [place], [place] [address]Dr. Chrissy Frazier Potassium [Moles/Vol] 3.1 mmol/L Critically low 3.5-5.1 [facility] Comment on above: Performed By: #### C MANA LIPA, TERRENCE ####[facility] Ggxrrjnemu3223[address] [place], [place] [address]Dr. Chrissy Frazier Protein [Mass/Vol] 8.4 g/dL Critically high 6.4-8.2 [facility] Comment on above: Performed By: #### C TESSA ADAIRA, TERRENCE ####[facility] Jxzraavefg5637[address] [place], [place] [address]Dr. Chrissy Frazier Sodium [Moles/Vol] 136 mmol/L Normal 136-145 [facility] Comment on above: Performed By: #### C MANA LIPA, TERRENCE ####[facility] Ksrymbnwbc5933[address] [place], [place] [address]Dr. Chrissy Frazier Urea nitrogen [Mass/Vol] 15.0 mg/dL Normal 7.0-18.0 [facility] Comment on above: Performed By: #### C MANA LIPA, TERRENCE ####[facility] Evyxvnrkvt7975[address] [place], [place] [address]Dr. Chrissy Frazier Urea nitrogen/Creatinine [Mass ratio] 10.4 mg/mg Normal [facility] Comment on above: Performed By: #### C MANA LIPA, TERRENCE ####[facility] Lgpkjdluaz9414 [place] [address]Dr. Chrissy Freddie CBC AUTO DIFFon 07-05-2022 BASO # 0.0 103/ul Normal 0.0-0.1 [facility] Comment on above: Performed By: #### C BC ####[facility] Zwikhhizbt[address] [place], [place] [address]Dr. Chrissy Frazier Basophils/100 WBC (Bld) 0.3 % Normal 0.2-2.0 [facility] Comment on above: Performed By: #### C BC ####[facility] Sfvzrpilki613[address] [place], [place] [address]Dr. Chrissy Frazier EO # 0.2 103/ul Normal 0.0-0.7 [facility] Comment on above: Performed By: #### C BC ####[facility] Larhxbinbq213[address] [place], [place] [address]Dr. Chrissy Frazier Eosinophils/100 WBC (Bld) 1.5 % Normal 0.9-7.0 [facility] Comment on above: Performed By: #### C BC ####[facility] Ljsggagnzl86[address] [place], [place] [address]Dr. Tishrowan Frazier Erythrocyte distribution width (RBC) [Ratio] 13.9 % Normal 11.0-15.0 [facility] Comment on above: Performed By: #### C BC ####[facility] Axpthumcif953[address] [place], [place] [address]Dr. Chrissy Frazier Hematocrit (Bld) [Volume fraction] 44.5 % Normal 42.0-54.0 [facility] Comment on above: Performed By: #### C BC ####[facility] Wnjtxwpyvf065[address] [place], [place] [address]Dr. Chrissy Frazier Hemoglobin (Bld) [Mass/Vol] 14.8 g/dL Normal 14.0-18.0 [facility] Comment on above: Performed By: #### C BC ####[facility] Xqkqvkufwj239[address] [place], [place] [address]Dr. Chrissy Frazier IG # 0.05 10e3/ul Critically high 0.00-0.03 [facility] Comment on above: Performed By: #### C BC ####[facility] Vflfvbeybz2544 [place] [phone]. Chrissy Frazier IG % 0.4 % Normal 0.0-0.5 [facility] Comment on above: Performed By: #### C BC ####[facility] Soiidxmmeq0036 [place] [phone]. Chrissy Frazier LYMPH # 3.3 103/ul Normal 1.2-3.8 [facility] Comment on above: Performed By: #### C BC ####[facility] Oqpptudsni4336 [place] [phone]. Chrissy Frazier Lymphocytes/100 WBC (Bld) 29.1 % Normal 20.5-60.0 [facility] Comment on above: Performed By: #### C BC ####[facility] Jiimlctuyd1125 [place] [address]Dr. Chrissy Frazier MANUAL DIFF REQ NO Normal [facility] Comment on above: Performed By: #### C BC ####[facility] Satqfatovh8465 [place] [phone]. Chrissy Frazier MCH (RBC) [Entitic mass] 28.2 pg Normal 25.9-34.0 [facility] Comment on above: Performed By: #### C BC ####[facility] Oowttrefwh9318 [place] [phone]. Chrissy Frazier MCHC (RBC) [Mass/Vol] 33.3 g/dL Normal 29.9-35.2 [facility] Comment on above: Performed By: #### C BC ####[facility] Peehrtaopf7643 [place] [phone]. Chrissy Frazier MCV (RBC) [Entitic vol] 84.9 fL Normal 80.0-94.0 [facility] Comment on above: Performed By: #### C BC ####[facility] Mlwlzykgbs0045 [place] [phone]. Chrissy Freddie MONO # 0.6 103/ul Normal 0.3-0.8 [facility] Comment on above: Performed By: #### C BC ####[facility] Amqiwzbclm8916 [place] [phone]. Chrissy Frazier Monocytes/100 WBC (Bld) 5.4 % Normal 1.7-12.0 [facility] Comment on above: Performed By: #### C BC ####[facility] Ioehpnbjip3426 [place] [phone]. Chrissy Frazier NEUT # 7.1 103/ul Critically high 1.4-6.5 [facility] Comment on above: Performed By: #### C BC ####[facility] Plyplidysp6726 [place] [phone]. Chrissy Frazier Neutrophils/100 WBC (Bld) 63.3 % Normal 43.0-75.0 [facility] Comment on above: Performed By: #### C BC ####[facility] Cacxzqqptq5866 [place] [address]Dr. Chrissy Frazier Platelet mean volume (Bld) [Entitic vol] 9.9 fL Normal 9.5-13.5 [facility] Comment on above: Performed By: #### C BC ####[facility] Zcvkfewboo5363 [place] [address]Dr. Chrissy Freddie PLT 339 103/ul Normal 150-450 [facility] Comment on above: Performed By: #### C BC ####[facility] Fvowclyfjq9471 [place] [phone]. Tishrowan Frazier RBC 5.24 106/ul Normal 4.70-6.10 [facility] Comment on above: Performed By: #### C BC ####[facility] Dvismqfmfh4416 [place] [phone]. Chrissy Frazier WBC 11.2 103/ul Critically high 4.0-11.0 [facility] Comment on above: Performed By: #### C BC ####[facility] Aetwscpjqw6930 [place] [address]Dr. Chrissy Frazier PROF 14(COMP METB)on 022 Albumin [Mass/Vol] 3.8 g/dL Normal 3.4-5.0 [facility] Comment on above: Performed By: #### C MP ####[facility] Iwapjjtkwu7594 [place] [phone]. Chrissy Freddie Albumin/Globulin [Mass ratio] 1.1 {ratio} Normal [facility] Comment on above: Performed By: #### C MP ####[facility] Stwwjialog2867 [place] [phone]. Chrissy Freddie ALP [Catalytic activity/Vol] 67 U/L Normal 46-116 [facility] Comment on above: Performed By: #### C MP ####[facility] Vqpnuesdly1094 [place] [address]Dr. Chrissy Freddie ALT [Catalytic activity/Vol] 75 U/L Critically high 16-63 [facility] Comment on above: Performed By: #### C MP ####[facility] Eytvlfvgwf4448 [place] [address]Dr. Chrissy Frazier Anion gap [Moles/Vol] 14.3 mmol/L Normal [facility] Comment on above: Performed By: #### C MP ####[facility] Glgwimansv[address] [place] [address]Dr. Chrissy Freddie AST [Catalytic activity/Vol] 40 U/L Critically high 15-37 [facility] Comment on above: Performed By: #### C MP ####[facility] Usbioqlodf9599 [place] [address]Dr. Chrissy Frazier Bilirubin [Mass/Vol] 0.9 mg/dL Normal 0.2-1.0 [facility] Comment on above: Performed By: #### C MP ####[facility] Xogikyxrge9094 [place] [phone]. Chrissy Frazier Calcium [Mass/Vol] 8.4 mg/dL Critically low 8.5-10.1 [facility] Comment on above: Performed By: #### C MP ####[facility] Zcmlzrotch4[address] [place] [address]Dr. Chrissy Frazier Chloride [Moles/Vol] 104 mmol/L Normal 98-107 [facility] Comment on above: Performed By: #### C MP ####[facility] Farcxxqdgo3087 [place] [phone]. Chrissy Frazier CO2 [Moles/Vol] 24.1 mmol/L Normal 21.0-32.0 [facility] Comment on above: Performed By: #### C MP ####[facility] Usrezxaeie4367 [place] [phone]. Chrissy Frazier Creatinine [Mass/Vol] 1.11 mg/dL Normal 0.70-1.30 [facility] Comment on above: Performed By: #### C MP ####[facility] Pxqpfugdhh4408 [place] [phone]. Chrissy Frazier EGFR-AF MONEGASQUE >60 Normal >=60 [facility] Comment on above: Performed By: #### C MP ####[facility] Ddqwhiyeng0524 [place] [address]Dr. Chrissy Frazier EGFR-NON AF MONEGASQUE >60 Normal >=60 [facility] Comment on above: Performed By: #### C MP ####[facility] Pvzkrxicsw[address] [place], [place] [address]Dr. Chrissy Frazier Globulin (S) [Mass/Vol] 3.6 g/dL Normal [facility] Comment on above: Performed By: #### C MP ####[facility] Hxetpjunll62[address] [place], [place] [address]Dr. Chrissy Frazier Glucose [Mass/Vol] 89 mg/dL Normal 74-106 [facility] Comment on above: Performed By: #### C MP ####[facility] Ckygxzjfhc7865 [place] [address]Dr. Chrissy Frazier Potassium [Moles/Vol] 3.4 mmol/L Critically low 3.5-5.1 [facility] Comment on above: Performed By: #### C MP ####[facility] Jdclwrbogq[address] [place], [place] [address]Dr. Chrissy Freddie Protein [Mass/Vol] 7.4 g/dL Normal 6.4-8.2 [facility] Comment on above: Performed By: #### C MP ####[facility] Mtbpzhpefs034[address] [place], [place] [address]Dr. Chrissy Frazier Sodium [Moles/Vol] 139 mmol/L Normal 136-145 [facility] Comment on above: Performed By: #### C MP ####[facility] Lxbofqdqoh0932[address] [place], [place] [address]Dr. Chrissy Frazier Urea nitrogen [Mass/Vol] 10.0 mg/dL Normal 7.0-18.0 [facility] Comment on above: Performed By: #### C MP ####[facility] Jsbrhjzrux9[address] [place], [place] [address]Dr. Chrissy Frazier Urea nitrogen/Creatinine [Mass ratio] 9.0 mg/mg Normal [facility] Comment on above: Performed By: #### C MP ####[facility] Cyrbljwlgc338[address] [place], [place] [address]Dr. Chrissy Frazier CBC AUTO DIFFon 07-04-2022 BASO # 0.0 103/ul Normal 0.0-0.1 [facility] Comment on above: Performed By: #### C BC ####[facility] Ddxrdpnltp838[address] [place], [place] [address]Dr. Chrissy Freddie Basophils/100 WBC (Bld) 0.2 % Normal 0.2-2.0 [facility] Comment on above: Performed By: #### C BC ####[facility] Zuupwjonnf938[address] [place], [place] [address]Dr. Chrissy Frazier EO # 0.0 103/ul Normal 0.0-0.7 [facility] Comment on above: Performed By: #### C BC ####[facility] Jyakivuenc60[address] [place], [place] [address]Dr. Chrissy Freddie Eosinophils/100 WBC (Bld) 0.3 % Critically low 0.9-7.0 [facility] Comment on above: Performed By: #### C BC ####[facility] Lbraqpycxl0155[address] [place], [place] [address]Dr. Chrissy Frazier Erythrocyte distribution width (RBC) [Ratio] 14.0 % Normal 11.0-15.0 [facility] Comment on above: Performed By: #### C BC ####[facility] Sxwltwwtqu0026 [place] [address]Dr. Chrissy Frazier Hematocrit (Bld) [Volume fraction] 43.2 % Normal 42.0-54.0 [facility] Comment on above: Performed By: #### C BC ####[facility] Lkibvvfkvb9702 [place] [address]Dr. Chrissy Frazier Hemoglobin (Bld) [Mass/Vol] 14.6 g/dL Normal 14.0-18.0 [facility] Comment on above: Performed By: #### C BC ####[facility] Gbnonamtwe9678 [place] [address]Dr. Tishrowan Freddie IG # 0.11 10e3/ul Critically high 0.00-0.03 [facility] Comment on above: Performed By: #### C BC ####[facility] Redqpiyphk0951 [place] [address]Dr. Chrissy Frazier IG % 0.8 % Critically high 0.0-0.5 The [facility] Comment on above: Performed By: #### C BC ####[facility] Qsvlqpufua0306 [place] [address]Dr. Chrissy Frazier LYMPH # 2.6 103/ul Normal 1.2-3.8 [facility] Comment on above: Performed By: #### C BC ####[facility] Jmqockjiix0015 [place] [address]Dr. Tishrowan Frazier Lymphocytes/100 WBC (Bld) 18.3 % Critically low 20.5-60.0 [facility] Comment on above: Performed By: #### C BC ####[facility] Yqxhlioqfg2334 [place] [address]Dr. Tishrowan Frazier MANUAL DIFF REQ NO Normal [facility] Comment on above: Performed By: #### C BC ####[facility] Jmvixoogfy95[address] [place], [place] [address]Dr. Chrissy Frazier MCH (RBC) [Entitic mass] 28.1 pg Normal 25.9-34.0 [facility] Comment on above: Performed By: #### C BC ####[facility] Hgjvuriwbp1641 [place] [phone]. Chrissy Frazier MCHC (RBC) [Mass/Vol] 33.8 g/dL Normal 29.9-35.2 [facility] Comment on above: Performed By: #### C BC ####[facility] Awdiyywetl5077 [place] [phone]. Chrissy Frazier MCV (RBC) [Entitic vol] 83.2 fL Normal 80.0-94.0 [facility] Comment on above: Performed By: #### C BC ####[facility] Tidsksehnc1517 [place] [phone]. Chrissy Frazier MONO # 0.7 103/ul Normal 0.3-0.8 [facility] Comment on above: Performed By: #### C BC ####[facility] Unvjdxqtwh6277 [place] [address]Dr. Tishrowan Frazier Monocytes/100 WBC (Bld) 5.3 % Normal 1.7-12.0 [facility] Comment on above: Performed By: #### C BC ####[facility] Xowqzauszl3714 [place] [phone]. Chrissy Frazier NEUT # 10.5 103/ul Critically high 1.4-6.5 [facility] Comment on above: Performed By: #### C BC ####[facility] Gfxwaejhzm6771 [place] [phone]. Chrissy Frazier Neutrophils/100 WBC (Bld) 75.1 % Critically high 43.0-75.0 [facility] Comment on above: Performed By: #### C BC ####[facility] Ooibdtvtba3667 [place] [phone]. Chrissy Frazier Platelet mean volume (Bld) [Entitic vol] 10.6 fL Normal 9.5-13.5 [facility] Comment on above: Performed By: #### C BC ####[facility] Kfpineonhy2494 [place] [phone]. Chrissy Freddie PLT 309 103/ul Normal 150-450 [facility] Comment on above: Performed By: #### C BC ####[facility] Alhynrkqwh4647 [place] [address]Dr. Chrissy Frazier RBC 5.19 106/ul Normal 4.70-6.10 [facility] Comment on above: Performed By: #### C BC ####[facility] Pjsbptayww9142 [place] [address]Dr. Chrissy Frazier WBC 14.0 103/ul Critically high 4.0-11.0 [facility] Comment on above: Performed By: #### C BC ####[facility] Wtmwzgktgh0430 [place] [address]Dr. Chrissy Frazier PROF 14(COMP METB)on 022 Albumin [Mass/Vol] 4.0 g/dL Normal 3.4-5.0 [facility] Comment on above: Performed By: #### C MP ####[facility] Kqwaoyewlz13[address] [place], [place] [address]Dr. Chrissy Frazier Albumin/Globulin [Mass ratio] 1.1 {ratio} Normal [facility] Comment on above: Performed By: #### C MP ####[facility] Smbempwcrs520[address] [place], [place] [address]Dr. Chrissy Frazier ALP [Catalytic activity/Vol] 67 U/L Normal 46-116 [facility] Comment on above: Performed By: #### C MP ####[facility] Tategqjuej357[address] [place], [place] [address]Dr. Chrissy Frazier ALT [Catalytic activity/Vol] 40 U/L Normal 16-63 [facility] Comment on above: Performed By: #### C MP ####[facility] Dkjmvmecca916[address] [place], [place] [address]Dr. Chrissy Frazier Anion gap [Moles/Vol] 17.7 mmol/L Normal [facility] Comment on above: Performed By: #### C MP ####[facility] Hfrtjyisvv35[address] [place], [place] [address]Dr. Chrissy Frazier AST [Catalytic activity/Vol] 27 U/L Normal 15-37 [facility] Comment on above: Performed By: #### C MP ####[facility] Okzwvwjzqp9301[address] [place], [place] [address]Dr. Chrissy Frazier Bilirubin [Mass/Vol] 0.8 mg/dL Normal 0.2-1.0 [facility] Comment on above: Performed By: #### C MP ####[facility] Izxmfwbecz9841 [place] [address]Dr. Chrissy Frazier Calcium [Mass/Vol] 8.8 mg/dL Normal 8.5-10.1 [facility] Comment on above: Performed By: #### C MP ####[facility] Pdpllitmea1159 [place] [address]Dr. Chrissy Frazier Chloride [Moles/Vol] 105 mmol/L Normal 98-107 [facility] Comment on above: Performed By: #### C MP ####[facility] Otvcfugrsr7551 [place] [address]Dr. Chrissy Frazier CO2 [Moles/Vol] 16.5 mmol/L Critically low 21.0-32.0 [facility] Comment on above: Performed By: #### C MP ####[facility] Knijdyrger37[address] [place], [place] [address]Dr. Chrissy Frazier Creatinine [Mass/Vol] 1.02 mg/dL Normal 0.70-1.30 [facility] Comment on above: Performed By: #### C MP ####[facility] Ekurospgrx6147[address] [place], [place] [address]Dr. Chrissy Frazier EGFR-AF MONEGASQUE >60 Normal >=60 [facility] Comment on above: Performed By: #### C MP ####[facility] Lzeqeodgic1075 [place] [address]Dr. Chrissy Freddie EGFR-NON AF MONEGASQUE >60 Normal >=60 [facility] Comment on above: Performed By: #### C MP ####[facility] Gfxikhwbbl8445[address] [place], [place] [address]Dr. Tishrowan Freddie Globulin (S) [Mass/Vol] 3.7 g/dL Normal [facility] Comment on above: Performed By: #### C MP ####[facility] Vkaxzqykaz4683 [place] [address]Dr. Tishrowan Frazier Glucose [Mass/Vol] 106 mg/dL Normal 74-106 [facility] Comment on above: Performed By: #### C MP ####[facility] Ybwwxquuob7684 [place] [address]Dr. Chrissy Freddie Potassium [Moles/Vol] 3.2 mmol/L Critically low 3.5-5.1 [facility] Comment on above: Performed By: #### C MP ####[facility] Hwdscookrp9214[address] [place], [place] [address]Dr. Chrissy Freddie Protein [Mass/Vol] 7.7 g/dL Normal 6.4-8.2 [facility] Comment on above: Performed By: #### C MP ####[facility] Klcwfofaxf808644 [address] [place], [place] [address]Dr. Chrissy Frazier Sodium [Moles/Vol] 136 mmol/L Normal 136-145 [facility] Comment on above: Performed By: #### C MP ####[facility] Tufziyvltu8457[address] [place], [place] [address]Dr. Chrissy Freddie Urea nitrogen [Mass/Vol] 10.0 mg/dL Normal 7.0-18.0 [facility] Comment on above: Performed By: #### C MP ####[facility] Buaoqkwsww3870[address] [place], [place] [address]Dr. Tishrowan Freddie Urea nitrogen/Creatinine [Mass ratio] 9.8 mg/mg Normal [facility] Comment on above: Performed By: #### C MP ####[facility] Wqmhtdwhqs2232[address] [place], [place] [address]Dr. Chrissy Freddie CBC AUTO DIFFon 07-03-2022 BASO # 0.1 103/ul Normal 0.0-0.1 [facility] Comment on above: Performed By: #### C BC ####[facility] Qsrhhlasfd2395[address] [place], [place] [address]Dr. Chrissy Frazier Basophils/100 WBC (Bld) 0.5 % Normal 0.2-2.0 [facility] Comment on above: Performed By: #### C BC ####[facility] Bynweahvlq555[address] [place], [place] [address]Dr. Chrissy Frazier EO # 0.1 103/ul Normal 0.0-0.7 [facility] Comment on above: Performed By: #### C BC ####[facility] Ltsfishbhe7325 [place] [address]Dr. Chrissy Frazier Eosinophils/100 WBC (Bld) 1.3 % Normal 0.9-7.0 [facility] Comment on above: Performed By: #### C BC ####[facility] Aoxketzuav6832 [place] [address]Dr. Chrissy Frazier Erythrocyte distribution width (RBC) [Ratio] 14.2 % Normal 11.0-15.0 [facility] Comment on above: Performed By: #### C BC ####[facility] Uylnwsnhua1624[address] [place], [place] [address]Dr. Chrissy Frazier Hematocrit (Bld) [Volume fraction] 41.7 % Critically low 42.0-54.0 [facility] Comment on above: Performed By: #### C BC ####[facility] Fmhhdmqloc5357[address] [place], [place] [address]Dr. Chrissy Frazier Hemoglobin (Bld) [Mass/Vol] 13.6 g/dL Critically low 14.0-18.0 [facility] Comment on above: Performed By: #### C BC ####[facility] Eqobreuajm5538[address] [place], [place] [address]Dr. Chrissy Frazier IG # 0.04 10e3/ul Critically high 0.00-0.[address] [facility] Comment on above: Performed By: #### C BC ####[facility] Svnzhdemaj2286 [place] [address]Dr. Chrissy Frazier IG % 0.4 % Normal 0.0-0.5 [facility] Comment on above: Performed By: #### C BC ####[facility] Dqabzoucgk4[address] [place], [place] [address]Dr. Chrissy Frazier LYMPH # 3.5 103/ul Normal 1.2-3.8 [facility] Comment on above: Performed By: #### C BC ####[facility] Ihzvnwpibo436[address] [place], [place] [address]Dr. Chrissy Frazier Lymphocytes/100 WBC (Bld) 33.5 % Normal 20.5-60.0 [facility] Comment on above: Performed By: #### C BC ####[facility] Hangxxjsdh4043 [place] [address]Dr. Chrissy Frazier MANUAL DIFF REQ NO Normal [facility] Comment on above: Performed By: #### C BC ####[facility] Aqufhnmfko4475 [place] [address]Dr. Chrissy Frazier MCH (RBC) [Entitic mass] 27.9 pg Normal 25.9-34.0 [facility] Comment on above: Performed By: #### C BC ####[facility] Ilgkkvnvfd4210 [place] [address]Dr. Chrissy Frazier MCHC (RBC) [Mass/Vol] 32.6 g/dL Normal 29.9-35.2 [facility] Comment on above: Performed By: #### C BC ####[facility] Dzbvclgypr3349 [place] [address]Dr. Chrissy Frazier MCV (RBC) [Entitic vol] 85.6 fL Normal 80.0-94.0 [facility] Comment on above: Performed By: #### C BC ####[facility] Ckjyquxjwe8759 [place] [address]Dr. Chrissy Frazier MONO # 0.7 103/ul Normal 0.3-0.8 [facility] Comment on above: Performed By: #### C BC ####[facility] Wstcggqrit9038 [place] [address]Dr. Chrissy Frazier Monocytes/100 WBC (Bld) 6.5 % Normal 1.7-12.0 [facility] Comment on above: Performed By: #### C BC ####[facility] Zfctastqof3545 [place] [address]DrNancy Frazier NEUT # 6.1 103/ul Normal 1.4-6.5 [facility] Comment on above: Performed By: #### C BC ####[facility] Wbpfwloqou26[address] [place], [place] [address]Dr. Chrissy Frazier Neutrophils/100 WBC (Bld) 57.8 % Normal 43.0-75.0 [facility] Comment on above: Performed By: #### C BC ####[facility] Rfsreqqlrk8532 [place] [address]Dr. Tishrowan Freddie Platelet mean volume (Bld) [Entitic vol] 10.4 fL Normal 9.5-13.5 [facility] Comment on above: Performed By: #### C BC ####[facility] Jyralhwvjs6912 [place] [address]DrNancy Frazier PLT 288 103/ul Normal 150-450 [facility] Comment on above: Performed By: #### C BC ####[facility] Kpyrnogoho0080 [place] [address]DrNancy Frazier RBC 4.87 106/ul Normal 4.70-6.10 [facility] Comment on above: Performed By: #### C BC ####[facility] Fbdnmssvga525[address] [place], [place] [address]DrNancy Frazier WBC 10.5 103/ul Normal 4.0-11.0 [facility] Comment on above: Performed By: #### C BC ####[facility] Xxvtdyoxgc399[address] [place], [place] [address]DrNancy Frazier PROF 14(COMP METB)on 022 Albumin [Mass/Vol] 3.6 g/dL Normal 3.4-5.0 [facility] Comment on above: Performed By: #### C MP ####[facility] Xckxmdkomg5187 [place] [address]DrNancy Frazier Albumin/Globulin [Mass ratio] 1.1 {ratio} Normal [facility] Comment on above: Performed By: #### C MP ####[facility] Tlahmzyrea8552 [place] [address]DrNancy Frazier ALP [Catalytic activity/Vol] 58 U/L Normal 46-116 [facility] Comment on above: Performed By: #### C MP ####[facility] Audyzwokit319[address] [place], [place] [address]Dr. Yirowan Frazier ALT [Catalytic activity/Vol] 30 U/L Normal 16-63 [facility] Comment on above: Performed By: #### C MP ####[facility] Xnbbkgzmen0492 [place] [address]Dr. Tishrowan Freddie Anion gap [Moles/Vol] 14.5 mmol/L Normal [facility] Comment on above: Performed By: #### C MP ####[facility] Ydgrxpemgx1533[address] [place], [place] [address]Dr. Chrissy Freddie AST [Catalytic activity/Vol] 17 U/L Normal 15-37 [facility] Comment on above: Performed By: #### C MP ####[facility] Ywbyceirhp2514[address] [place], [place] [address]Dr. Chrissy Frazier Bilirubin [Mass/Vol] 0.6 mg/dL Normal 0.2-1.0 [facility] Comment on above: Performed By: #### C MP ####[facility] Wreeezrwmz35[address] [place], [place] [address]Dr. Chrissy Frazier Calcium [Mass/Vol] 8.4 mg/dL Critically low 8.5-10.1 [facility] Comment on above: Performed By: #### C MP ####[facility] Twnibgnuub865[address] [place], [place] [address]Dr. Chrissy Frazier Chloride [Moles/Vol] 106 mmol/L Normal 98-107 [facility] Comment on above: Performed By: #### C MP ####[facility] Vezhizwmwh249[address] [place], [place] [address]Dr. Chrissy Frazier CO2 [Moles/Vol] 22.6 mmol/L Normal 21.0-32.0 [facility] Comment on above: Performed By: #### C MP ####[facility] Lcxutxmzqj4527[address] [place], [place] [address]Dr. Chrissy Frazier Creatinine [Mass/Vol] 1.08 mg/dL Normal 0.70-1.30 [facility] Comment on above: Performed By: #### C MP ####[facility] Lgdwnyxudd2911[address] [place], [place] [address]Dr. Chrissy Frazier EGFR-AF MONEGASQUE >60 Normal >=60 [facility] Comment on above: Performed By: #### C MP ####[facility] Hzigysntwp4[address] [place], [place] [address]Ox. Chrissy Frazier EGFR-NON AF MONEGASQUE >60 Normal >=60 [facility] Comment on above: Performed By: #### C MP ####[facility] Bivlzukmrl0687 [place], [place] [address]Ky. Chrissy Frazier Globulin (S) [Mass/Vol] 3.3 g/dL Normal [facility] Comment on above: Performed By: #### C MP ####[facility] Mdalqynsuj0158 [place] [phone]. Chrissy Frazier Glucose [Mass/Vol] 94 mg/dL Normal 74-106 [facility] Comment on above: Performed By: #### C MP ####[facility] Njwqminouh8624 [place] [phone]. Chrissy Frazier Potassium [Moles/Vol] 3.1 mmol/L Critically low 3.5-5.1 [facility] Comment on above: Performed By: #### C MP ####[facility] Ibqmlmgrjv9745 [place] [phone]. Chrissy Frazier Protein [Mass/Vol] 6.9 g/dL Normal 6.4-8.2 [facility] Comment on above: Performed By: #### C MP ####[facility] Ewfjixsorl9467 [place] [phone]. Chrissy Frazier Sodium [Moles/Vol] 140 mmol/L Normal 136-145 [facility] Comment on above: Performed By: #### C MP ####[facility] Udkxptfnjg5043 [place] [phone]. Chrissy Frazier Urea nitrogen [Mass/Vol] 10.0 mg/dL Normal 7.0-18.0 [facility] Comment on above: Performed By: #### C MP ####[facility] Gbyqwkfxok4813 [place] [phone]. Chrissy Frazier Urea nitrogen/Creatinine [Mass ratio] 9.3 mg/mg Normal [facility] Comment on above: Performed By: #### C MP ####[facility] Ehzzolcptb3567[address] [place], [place] [address]Dr. Chrissy Frazier CBC AUTO DIFFon 07-02-2022 BASO # 0.0 103/ul Normal 0.0-0.1 [facility] Comment on above: Performed By: #### C BC ####[facility] Daiectzmzq436[address] [place], [place] [address]Dr. Chrissy Frazier Basophils/100 WBC (Bld) 0.2 % Normal 0.2-2.0 [facility] Comment on above: Performed By: #### C BC ####[facility] Zdbuakvvbe4128[address] [place], [place] [address]Dr. Chrissy Frazier EO # 0.0 103/ul Normal 0.0-0.7 [facility] Comment on above: Performed By: #### C BC ####[facility] Fhwzcdpuqw0797[address] [place], [place] [address]Dr. Chrissy Frazier Eosinophils/100 WBC (Bld) 0.0 % Critically low 0.9-7.0 [facility] Comment on above: Performed By: #### C BC ####[facility] Fnkvgqdfml524[address] [place], [place] [address]Dr. Chrissy Frazier Erythrocyte distribution width (RBC) [Ratio] 14.2 % Normal 11.0-15.0 [facility] Comment on above: Performed By: #### C BC ####[facility] Uzxeqqvwmp5747[address] [place], [place] [address]Dr. Chrissy Frazier Hematocrit (Bld) [Volume fraction] 46.2 % Normal 42.0-54.0 [facility] Comment on above: Performed By: #### C BC ####[facility] Acwovrxinf536[address] [place], [place] [address]Dr. Chrissy Frazier Hemoglobin (Bld) [Mass/Vol] 15.2 g/dL Normal 14.0-18.0 [facility] Comment on above: Performed By: #### C BC ####[facility] Qysrejoxro483[address] [place], [place] [address]Dr. Chrissy Frazier IG # 0.07 10e3/ul Critically high 0.00-0.03 [facility] Comment on above: Performed By: #### C BC ####[facility] Vchwhzcmgm6628 [place] [phone] Chrissy Freddie IG % 0.4 % Normal 0.0-0.5 [facility] Comment on above: Performed By: #### C BC ####[facility] Nygzdayxrv6513 [place] [address]DrNancy Chrissy Freddie LYMPH # 2.8 103/ul Normal 1.2-3.8 [facility] Comment on above: Performed By: #### C BC ####[facility] Muhkncvift375[address] [place], [place] [address]DrNancy Chrissy Freddie Lymphocytes/100 WBC (Bld) 16.7 % Critically low 20.5-60.0 [facility] Comment on above: Performed By: #### C BC ####[facility] Tzpzcgucgz64[address] [place], [place] [address]DrNancy Chrissy Freddie MANUAL DIFF REQ NO Normal [facility] Comment on above: Performed By: #### C BC ####[facility] Feuwzkqncg0747[address] [place], [place] [address]DrNancy Chrissy Freddie MCH (RBC) [Entitic mass] 28.3 pg Normal 25.9-34.0 [facility] Comment on above: Performed By: #### C BC ####[facility] Uayszdxjzd6638 [place] [address]DrNancy Chrissy Freddie MCHC (RBC) [Mass/Vol] 32.9 g/dL Normal 29.9-35.2 [facility] Comment on above: Performed By: #### C BC ####[facility] Rhslgumhnz156[address] [place], [place] [address]DrNancy Winstonrowan Freddie MCV (RBC) [Entitic vol] 86.0 fL Normal 80.0-94.0 [facility] Comment on above: Performed By: #### C BC ####[facility] Rgwvyvakqb[address] [place], [place] [address]DrNancy Frazier MONO # 0.9 103/ul Critically high 0.3-0.8 [facility] Comment on above: Performed By: #### C BC ####[facility] [address]do[address] [place] [phone]. Chrissy Frazier Monocytes/100 WBC (Bld) 5.1 % Normal 1.7-12.0 [facility] Comment on above: Performed By: #### C BC ####[facility] Azrumhokpn[address] [place] [phone]. Chrissy Frazier NEUT # 13.2 103/ul Critically high 1.4-6.5 The [facility] Comment on above: Performed By: #### C BC ####[facility] Arplygymxm[address] [place] [address]Dr. Chrissy Frazier Neutrophils/100 WBC (Bld) 77.6 % Critically high 43.0-75.0 [facility] Comment on above: Performed By: #### C BC ####[facility] Iuhatahzgg[address] [place], [place] [address]Dr. Chrissy Frazier Platelet mean volume (Bld) [Entitic vol] 11.6 fL Normal 9.5-13.5 [facility] Comment on above: Performed By: #### C BC ####[facility] Eiybquhhsr[address] [place] [address]Dr. Chrissy Frazier PLT 317 103/ul Normal 150-450 [facility] Comment on above: Performed By: #### C BC ####[facility] Eazffxdbpq[address] [place], [place] [address]Dr. Chrissy Frazier RBC 5.37 106/ul Normal 4.70-6.10 [facility] Comment on above: Performed By: #### C BC ####[facility] Ezzxzgrbaq[address] [place] [phone]. Chrissy Frazier WBC 17.1 103/ul Critically high 4.0-11.0 [facility] Comment on above: Performed By: #### C BC ####[facility] Mujjzzdtty[address] [place] [phone]. Chrissy Frazier CT ABD/PELV W MARGOTHon 07-02-[address] ABD/PELV W CON Normal [facility] H PYLORI ANTIBODY IGGon 06-21 H. PYLORI IGG ABS 0.13 Index Value Normal 0.00-0.79 [facility] Comment on above: Result Comment: Nega tive <0.80 Equivocal 0.80 - 0.89 Positive >0.89 Performed By: #### H PYLLC ####[facility] Ctveikanhr[address] [place] [address]Dr. Chrissy Frazier PROF 14(COMP METB)on 022 Albumin [Mass/Vol] 3.8 g/dL Normal 3.4-5.0 [facility] Comment on above: Performed By: #### C MP ####[facility] Nyfegjwrhp[address] [place], [place] [address]Dr. Chrissy Frazier Albumin/Globulin [Mass ratio] 1.0 {ratio} Normal [facility] Comment on above: Performed By: #### C MP ####[facility] Zzzatpsfqu[address] [place], [place] [address]Dr. Chrissy Frazier ALP [Catalytic activity/Vol] 68 U/L Normal 46-116 [facility] Comment on above: Performed By: #### C MP ####[facility] Rietouiftb0864[address] [place], [place] [address]Dr. Chrissy Frazier ALT [Catalytic activity/Vol] 34 U/L Normal 16-63 [facility] Comment on above: Performed By: #### C MP ####[facility] Mzaqvezwlk[address] [place], [place] [address]Dr. Chrissy Frazier Anion gap [Moles/Vol] 17.9 mmol/L Normal [facility] Comment on above: Performed By: #### C MP ####[facility] Qndgpmfoyl50[address] [place], [place] [address]Dr. Chrissy Frazier AST [Catalytic activity/Vol] 24 U/L Normal 15-37 [facility] Comment on above: Performed By: #### C MP ####[facility] Qzmcohdjxk9[address] [place], [place] [address]Dr. Chrissy Frazier Bilirubin [Mass/Vol] 0.6 mg/dL Normal 0.2-1.0 [facility] Comment on above: Performed By: #### C MP ####[facility] Sanhxdevvj[address] [place] [address]Dr. Chrissy Frazier Calcium [Mass/Vol] 8.8 mg/dL Normal 8.5-10.1 [facility] Comment on above: Performed By: #### C MP ####[facility] Muprhwcqhl5[address] [place] [address]Dr. Chrissy Frazier Chloride [Moles/Vol] 105 mmol/L Normal 98-107 [facility] Comment on above: Performed By: #### C MP ####[facility] Dnxyrmnsma80[address] [place], [place] [address]Dr. Chrissy Frazier CO2 [Moles/Vol] 18.8 mmol/L Critically low 21.0-32.0 [facility] Comment on above: Performed By: #### C MP ####[facility] Kmayasmjwc3[address] [place], [place] [address]Dr. Chrissy Frazier Creatinine [Mass/Vol] 1.15 mg/dL Normal 0.70-1.30 [facility] Comment on above: Performed By: #### C MP ####[facility] Cehfsmldzz[address] [place], [place] [address]Dr. Chrissy Frazier EGFR-AF MONEGASQUE >60 Normal >=60 [facility] Comment on above: Performed By: #### C MP ####[facility] Gsuvhpuyar108[address] [place], [place] [address]Dr. Chrissy Freddie EGFR-NON AF MONEGASQUE >60 Normal >=60 [facility] Comment on above: Performed By: #### C MP ####[facility] Wyvbhxwyeo22[address] [place], [place] [address]Dr. Chrissy Freddie Globulin (S) [Mass/Vol] 3.9 g/dL Normal [facility] Comment on above: Performed By: #### C MP ####[facility] Wkzihckive24[address] [place], [place] [address]Dr. Chrissy Frazier Glucose [Mass/Vol] 124 mg/dL Critically high 74-106 [facility] Comment on above: Performed By: #### C MP ####[facility] Xzeepehtea[address] [place] [address]Dr. Chrissy Frazier Potassium [Moles/Vol] 3.7 mmol/L Normal 3.5-5.1 [facility] Comment on above: Performed By: #### C MP ####[facility] Bhkgwwxqhk97[address] [place] [address]Dr. Chrissy Freddie Protein [Mass/Vol] 7.7 g/dL Normal 6.4-8.2 [facility] Comment on above: Performed By: #### C MP ####[facility] Miwypijelz17[address] [place], [place] [address]Dr. Tishrowan Frazier Sodium [Moles/Vol] 138 mmol/L Normal 136-145 [facility] Comment on above: Performed By: #### C MP ####[facility] Eorjgydbgl8[address] [place], [place] [address]Dr. Tishrowan Frazier Urea nitrogen [Mass/Vol] 9.0 mg/dL Normal 7.0-18.0 [facility] Comment on above: Performed By: #### C MP ####[facility] Mrwqooeibt00[address] [place], [place] [address]Dr. Chrissy Freddie Urea nitrogen/Creatinine [Mass ratio] 7.8 mg/mg Normal [facility] Comment on above: Performed By: #### C MP ####[facility] Vddwguijxn130[address] [place], [place] [address]Dr. Chrissy Freddie AMMONIAon 07-01-2022 Ammonia (P) [Moles/Vol] 14 umol/L Normal 11-32 [facility] Comment on above: Performed By: #### A MM ####[facility] Yfroodgrhr227[address] [place], [place] [address]Dr. Tishrowan Frazier AMYLASEon 07-01-2022 Amylase [Catalytic activity/Vol] 32 U/L Normal 25-115 [facility] Comment on above: Performed By: #### A MY, PHOS, CMP, LIPA ####[facility] [address]xmumpu[address] [place] [address]Dr. Tishrowan Frazier CBC AUTO DIFFon 07-01-2022 BASO # 0.1 103/ul Normal 0.0-0.1 [facility] Comment on above: Performed By: #### C BC ####[facility] Tslnjipzan[address] [place] [address]Dr. Chrissy Frazier Basophils/100 WBC (Bld) 0.4 % Normal 0.2-2.0 [facility] Comment on above: Performed By: #### C BC ####[facility] Zrryhrbxqf[address] [place], [place] [address]Dr. Chrissy Frazier EO # 0.2 103/ul Normal 0.0-0.7 [facility] Comment on above: Performed By: #### C BC ####[facility] Oaqeqgwmty5818[address] [place], [place] [address]Dr. Tishrowan Freddie Eosinophils/100 WBC (Bld) 0.9 % Normal 0.9-7.0 [facility] Comment on above: Performed By: #### C BC ####[facility] Qhjcpxtehq49[address] [place], [place] [address]Dr. Chrissy Frazier Erythrocyte distribution width (RBC) [Ratio] 13.8 % Normal 11.0-15.0 [facility] Comment on above: Performed By: #### C BC ####[facility] Bfgxjsptsd2223[address] [place], [place] [address]Dr. Tishrowan Frazier Hematocrit (Bld) [Volume fraction] 46.3 % Normal 42.0-54.0 [facility] Comment on above: Performed By: #### C BC ####[facility] Abdnjplkpi9[address] [place], [place] [address]Dr. Tishrowan Frazier Hemoglobin (Bld) [Mass/Vol] 15.4 g/dL Normal 14.0-18.0 [facility] Comment on above: Performed By: #### C BC ####[facility] Lhtawdolte6[address] [place], [place] [address]Dr. Chrissy Frazier IG # 0.05 10e3/ul Critically high 0.00-0.03 [facility] Comment on above: Performed By: #### C BC ####[facility] Zeb[address]vopjbu[address] [place] [address]Dr. Chrissy Frazier IG % 0.3 % Normal 0.0-0.5 [facility] Comment on above: Performed By: #### C BC ####[facility] Zorkahvrzl[address] [place], [place] [address]Dr. Chrissy Frazier LYMPH # 2.0 103/ul Normal 1.2-3.8 [facility] Comment on above: Performed By: #### C BC ####[facility] Pxkrelubmw1637[address] [place], [place] [address]Dr. Chrissy Frazier Lymphocytes/100 WBC (Bld) 12.9 % Critically low 20.5-60.0 [facility] Comment on above: Performed By: #### C BC ####[facility] Hbtdxbuudw8316[address] [place], [place] [address]DrNancy Frazier MANUAL DIFF REQ NO Normal [facility] Comment on above: Performed By: #### C BC ####[facility] Bfkpazrzbl132[address] [place], [place] [address]Dr. Tishrowan Frazier MCH (RBC) [Entitic mass] 28.6 pg Normal 25.9-34.0 [facility] Comment on above: Performed By: #### C BC ####[facility] Qcmlbnyndq3[address] [place], [place] [address]Dr. Chrissy Freddie MCHC (RBC) [Mass/Vol] 33.3 g/dL Normal 29.9-35.2 [facility] Comment on above: Performed By: #### C BC ####[facility] Dlvmhmjhuj9[address] [place], [place] [address]DrNancy Frazier MCV (RBC) [Entitic vol] 86.1 fL Normal 80.0-94.0 [facility] Comment on above: Performed By: #### C BC ####[facility] Smwdxazfwa65[address] [place], [place] [address]DrNancy Frazier MONO # 0.5 103/ul Normal 0.3-0.8 [facility] Comment on above: Performed By: #### C BC ####[facility] Qmevfvyqtb5764[address] [place], [place] [address]Dr. Chrissy Frazier Monocytes/100 WBC (Bld) 3.0 % Normal 1.7-12.0 [facility] Comment on above: Performed By: #### C BC ####[facility] Tghiwpizhy[address] [place] [address]Dr. Chrissy Frazier NEUT # 13.0 103/ul Critically high 1.4-6.5 [facility] Comment on above: Performed By: #### C BC ####[facility] Gorjdkwgtx59[address] [place] [address]Dr. Chrissy Frazier Neutrophils/100 WBC (Bld) 82.5 % Critically high 43.0-75.0 [facility] Comment on above: Performed By: #### C BC ####[facility] Gkdvlmokgq60[address] [place], [place] [address]Dr. Chrissy Frazier Platelet mean volume (Bld) [Entitic vol] 10.0 fL Normal 9.5-13.5 [facility] Comment on above: Performed By: #### C BC ####[facility] Zkfeuaqmow64[address] [place], [place] [address]Dr. Chrissy Frazier PLT 370 103/ul Normal 150-450 [facility] Comment on above: Performed By: #### C BC ####[facility] Liprfxluhs[address] [place], [place] [address]Dr. Chrissy Frazier RBC 5.38 106/ul Normal 4.70-6.10 [facility] Comment on above: Performed By: #### C BC ####[facility] Qwklkzlxwb8925[address] [place], [place] [address]Dr. Chrissy Frazier WBC 15.8 103/ul Critically high 4.0-11.0 [facility] Comment on above: Performed By: #### C BC ####[facility] [address]zzscx[address] [place] [address]Dr. Chrissy Frazier CULTURE URINEon 07-01-2022 CULTURE URINE Culture Observations: No growth Normal [facility] Comment on above: Performed By: #### U RCX ####[facility] Gqyzxaqpgx[address] [place], [place] [address]Dr. Chrissy Frazier Covid-19 PCR (CVDTB)on 06-21 SARS-CoV-2 (COVID-19) RNA RHIANNON+probe Ql (Unsp spec) Not detected Normal NOT DETECTED [facility] Comment on above: Result Comment: [...] for this test is supported by the [employer] and Human Service's declaration that [...] be used). Performed By: #### C VDTBH ####[facility] [address]jzj[address] [place] [address]Dr. Chrissy Freddie DRUG SCREEN RAPID (URINE)on 07-01-2022 AMP Negative Normal NEGATIVE [facility] Comment on above: Performed By: #### D REYES UAMIC ####[facility] [address]csai[address] [place] [phone]. Chrissy Frazier BAR Negative Normal NEGATIVE [facility] Comment on above: Performed By: #### D CHAYAD, UAMIC ####[facility] Eggbzrelme87[address] [place] [phone]. Chrissy Frazier BUP Negative Normal NEGATIVE [facility] Comment on above: Performed By: #### D REYES UAMIC ####[facility] Ihkjvpvhos64[address] [place] [phone]. Tishrowan Frazier BZO Negative Normal NEGATIVE [facility] Comment on above: Performed By: #### D REYES UAMIC ####[facility] [address]zflxn[address] [place] [phone]. Chrissy Frazier LAUREN Negative Normal NEGATIVE [facility] Comment on above: Performed By: #### Amelie CHAMBERS UAMIC ####[facility] Igzfilqsbt9[address] [place], [place] [address]Dr. Chrissy Frazier CUT-OFFS SEE BELOW Normal [facility] Comment on above: Result Comment: [...] ng/mL Performed By: #### Amelie CHAMBERS UAMIC ####[facility] Srcjvqoyuf[address] [place], [place] [address]Dr. Chrissy Frazier DRUG CUT HEADER DRUG CLASS TEST SYSTEM CUT-OFF CONCENTRATIONS ARE FOLLOWS: Normal [facility] Comment on above: Performed By: #### Amelie CHAMBERS UAMIC ####[facility] Tfoojoyjyb86[address] [place], [place] [address]Dr. Chrissy Frazier mAMP Negative Normal NEGATIVE [facility] Comment on above: Performed By: #### Amelie CHAMBERS UAMIC ####[facility] Sdgainvqdz[address] [place], [place] [address]Dr. Chrissy Frazier MTD Negative Normal NEGATIVE [facility] Comment on above: Performed By: #### Amelie CHAMBERS UAMIC ####[facility] Nxyhkcuaai465[address] [place], [place] [address]Dr. Chrissy Frazier OPI Negative Normal NEGATIVE [facility] Comment on above: Performed By: #### Amelie CHAMBERS UAMIC ####[facility] Twkpxahgav224[address] [place], [place] [address]Dr. Chrissy Frazier OXY Negative Normal NEGATIVE [facility] Comment on above: Performed By: #### D REYES, UAMIC ####[facility] Plcatuksuy[address] [place] [address]Dr. Chrissy Frazier PCP Negative Normal NEGATIVE [facility] Comment on above: Performed By: #### D REYES, UAMIC ####[facility] Qbxbudtlni[address] [place] [address]Dr. Chrissy Frazier PPX Negative Normal NEGATIVE [facility] Comment on above: Performed By: #### D REYES, UAMIC ####[facility] Kaqxhmuxgs[address] [place] [address]Dr. Chrissy Frazier TCA Negative Normal NEGATIVE [facility] Comment on above: Performed By: #### D REYES UAMIC ####[facility] Ocytopjvdp22[address] [place], [place] [address]Dr. Chrissy Frazier THC Positive Abnormal NEGATIVE [facility] Comment on above: Performed By: #### D REYES UAMIC ####[facility] Ubbeujrujp9139[address] [place], [place] [address]Dr. Chrissy Frazier LACTATE/LACTIC ACIDon 2021 Lactate [Moles/Vol] 4.4 mmol/L Critically high 0.4-1.9 [facility] Comment on above: Performed By: #### L ACT ####[facility] Snapdozusf[address] [place], [place] [address]Dr. Chrissy Frazier LIPASEon 07-01-2022 Lipase [Catalytic activity/Vol] 57.0 U/L Critically low 73.0-393.0 [facility] Comment on above: Performed By: #### A MY, PHOS, CMP, LIPA ####[facility] Mvzgfzozuu6[address] [place], [place] [address]Dr. Chrissy Frazier PHOSPHORUSon 07-01-2022 Phosphate [Mass/Vol] 1.4 mg/dL Critically low 2.6-4.7 [facility] Comment on above: Performed By: #### A MY, PHOS, CMP, LIPA ####[facility] Ibirmqxakf454[address] [place], [place] [address]Dr. Chrissy Frazier PROF 14(COMP METB)on 022 Albumin [Mass/Vol] 4.2 g/dL Normal 3.4-5.0 [facility] Comment on above: Performed By: #### A MY, PHOS, CMP, LIPA ####[facility] [address]glykx[address] [place] [address]Dr. Chrissy Frazier Albumin/Globulin [Mass ratio] 1.1 {ratio} Normal [facility] Comment on above: Performed By: #### A MY, PHOS, CMP, LIPA ####[facility] Zcrbfqwdlq6[address] [place] [address]Dr. Chrissy Frazier ALP [Catalytic activity/Vol] 73 U/L Normal 46-116 [facility] Comment on above: Performed By: #### A MY, PHOS, CMP, LIPA ####[facility] Viewohhhsw[address] [place] [address]Dr. Chrissy Frazier ALT [Catalytic activity/Vol] 43 U/L Normal 16-63 [facility] Comment on above: Performed By: #### A MY, PHOS, CMP, LIPA ####[facility] Yfzvueumtk18[address] [place] [address]Dr. Chrissy Frazier Anion gap [Moles/Vol] 19.0 mmol/L Normal [facility] Comment on above: Performed By: #### A MY, PHOS, CMP, LIPA ####[facility] Ueoxeztxtv18[address] [place] [address]Dr. Chrissy Frazier AST [Catalytic activity/Vol] 21 U/L Normal 15-37 [facility] Comment on above: Performed By: #### A MY, PHOS, CMP, LIPA ####[facility] [address]pizpoql[address] [place] [address]Dr. Chrissy Frazier Bilirubin [Mass/Vol] 0.5 mg/dL Normal 0.2-1.0 [facility] Comment on above: Performed By: #### A MY, PHOS, CMP, LIPA ####[facility] Xmvnhdprlr55[address] [place] [address]Dr. Chrissy Frazier Calcium [Mass/Vol] 9.3 mg/dL Normal 8.5-10.1 [facility] Comment on above: Performed By: #### A MY, PHOS, CMP, LIPA ####[facility] Vuttpjrmjv[address] [place] [address]Dr. Chrissy Frazier Chloride [Moles/Vol] 103 mmol/L Normal 98-107 [facility] Comment on above: Performed By: #### A MY, PHOS, CMP, LIPA ####[facility] Ovudwlxrul16[address] [place] [address]Dr. Chrissy Frazier CO2 [Moles/Vol] 21.1 mmol/L Normal 21.0-32.0 [facility] Comment on above: Performed By: #### A MY, PHOS, CMP, LIPA ####[facility] Czfrxagaid[address] [place], [place] [address]Dr. Chrissy Frazier Creatinine [Mass/Vol] 1.44 mg/dL Critically high 0.70-1.30 [facility] Comment on above: Performed By: #### A MY, PHOS, CMP, LIPA ####[facility] Briseoctxq[address] [place], [place] [address]Dr. Chrissy Frazier EGFR-AF MONEGASQUE >60 Normal >=60 [facility] Comment on above: Performed By: #### A MY, PHOS, CMP, LIPA ####[facility] Qcbzyzspvf57[address] [place] [address]Dr. Chrissy Frazier EGFR-NON AF MONEGASQUE 57 mL/min/1.73m2 Critically low >=60 [facility] Comment on above: Performed By: #### A MY, PHOS, CMP, LIPA ####[facility] Qwrfqvpezz26[address] [place] [address]Dr. Chrissy Frazier Globulin (S) [Mass/Vol] 3.9 g/dL Normal [facility] Comment on above: Performed By: #### A MY, PHOS, CMP, LIPA ####[facility] Ekazqgxcby75[address] [place] [address]Dr. Chrissy Frazier Glucose [Mass/Vol] 148 mg/dL Critically high 74-106 [facility] Comment on above: Performed By: #### A MY, PHOS, CMP, LIPA ####[facility] Ucvimorsti30[address] [place] [address]Dr. Chrissy Frazier Potassium [Moles/Vol] 3.1 mmol/L Critically low 3.5-5.1 [facility] Comment on above: Performed By: #### A MY, PHOS, CMP, LIPA ####[facility] Hlvghebszd30[address] [place] [address]Dr. Chrissy Frazier Protein [Mass/Vol] 8.1 g/dL Normal 6.4-8.2 [facility] Comment on above: Performed By: #### A MY, PHOS, CMP, LIPA ####[facility] Yaxswtvvpa[address] [place] [address]Dr. Chrissy Frazier Sodium [Moles/Vol] 140 mmol/L Normal 136-145 [facility] Comment on above: Performed By: #### A MY, PHOS, CMP, LIPA ####[facility] Prkhcccfgs14[address] [place] [address]Dr. Chrissy Frazier Urea nitrogen [Mass/Vol] 10.0 mg/dL Normal 7.0-18.0 [facility] Comment on above: Performed By: #### A MY, PHOS, CMP, LIPA ####[facility] Hbiicaakkj40[address] [place] [address]Dr. Chrissy Frazier Urea nitrogen/Creatinine [Mass ratio] 6.9 mg/mg Normal [facility] Comment on above: Performed By: #### A MY, PHOS, CMP, LIPA ####[facility] Jeguaaeroa[address] [place] [address]Dr. Chrissy Freddie UA RANDOM W/MICROSCOPICon BACTERIA TRACE Abnormal NONE SEEN [facility] Comment on above: Performed By: #### D REYES UAMIC ####[facility] Ryrxfrboev[address] [place] [address]Dr. Tishrowan Freddie Bilirubin Ql (U) Negative Normal NEGATIVE [facility] Comment on above: Performed By: #### D REYES UAMIC ####[facility] Mqwvibhjvp24[address] [place] [address]Dr. Chrissy Frazier CAST NONE SEEN Normal NONE SEEN [facility] Comment on above: Performed By: #### Amelie CHAMBERS UAMIC ####[facility] Scbffycpqv[address] [place], [place] [address]Dr. Chrissy Frazier Clarity (U) CLEAR Normal CLEAR [facility] Comment on above: Performed By: #### Amelie CHAMBERS UAMIC ####[facility] Rhduedwaos[address] [place] [address]Dr. Chrissy Frazier Color (U) YELLOW Normal YELLOW [facility] Comment on above: Performed By: #### Amelie CHAMBERS UAMIC ####[facility] Ontlugyzkc[address] [place], [place] [address]Dr. Chrissy Frazier Crystals LM Nom (Urine sed) NONE SEEN Normal NONE SEEN [facility] Comment on above: Performed By: #### Amelie CHAMBERS UAMIC ####[facility] Fgabotjtzg[address] [place], [place] [address]Dr. Chrissy Frazier Epithelial cells LM Ql (Urine sed) RARE Normal NONE SEEN /RARE [facility] Comment on above: Performed By: #### Amelie CHAMBERS UAMIC ####[facility] Odqutnnwnl8[address] [place], [place] [address]Dr. Chrissy Frazier Glucose Ql (U) Negative Normal NEGATIVE The [facility] Comment on above: Performed By: #### Amelie CHAMBERS UAMIC ####[facility] Ussfeayzgq347[address] [place], [place] [address]Dr. Chrissy Frazier Hemoglobin Ql (U) Negative Normal NEGATIVE The [facility] Comment on above: Performed By: #### Amelie CHAMBERS UAMIC ####[facility] Bbnddnxigv684[address] [place], [place] [address]Dr. Chrissy Frazier Ketones Ql (U) 40 mg/dl Abnormal NEGATIVE The [facility] Comment on above: Performed By: #### Amelie CHAMBERS UAMIC ####[facility] Bwucyatxed4[address] [place], [place] [address]Dr. Chrissy Frazier LEUKOCYTES Negative Normal NEGATIVE [facility] Comment on above: Performed By: #### Amelie CHAMBERS, UAMIC ####[facility] Rsmwizbcsv0[address] [place] [address]Dr. Chrissy Frazier MUCOUS MODERATE Abnormal NONE SEEN [facility] Comment on above: Performed By: #### Amelie CHAMBERS, UAMIC ####[facility] Vtjzzguhuv94[address] [place] [address]Dr. Chrissy Frazier Nitrite Ql (U) Negative Normal NEGATIVE The [facility] Comment on above: Performed By: #### Amelie CHAMBERS UAMIC ####[facility] Bvjkedcrcl0[address] [place], [place] [address]Dr. Chrissy Frazier pH (U) 6.0 [pH] Normal 5-9 [facility] Comment on above: Performed By: #### Amelie CHAMBERS UAMIC ####[facility] Fuusfjjaet96[address] [place], [place] [address]Dr. Chrissy Frazier RBC 0-2 Normal 0-2 [facility] Comment on above: Performed By: #### Amelie CHAMBERS UAMIC ####[facility] Axocmgtveq7[address] [place], [place] [address]Dr. Chrissy Frazier SPEC GRAVITY 1.020 Normal 1.005-<=1.025 [facility] Comment on above: Performed By: #### Amelie CHAMBERS UAMIC ####[facility] Ikagyuuxrf[address] [place], [place] [address]Dr. Chrissy Frazier UA PROTEIN Negative Normal NEGATIVE/ TRACE [facility] Comment on above: Performed By: #### Amelie CHAMBERS UAMIC ####[facility] [address]frzabwzoq[address] [place], [place] [address]Dr. Chrissy Frazier Urobilinogen Qn (U) 0.2 {Estrellita'U}/dL Normal 0.2 - 1. 0 [facility] Comment on above: Performed By: #### Amelie CHAMBERS UAMIC ####[facility] Vdszymqrri[address] [place], [place] [address]Dr. Chrissy Frazier WBC 0-2 Abnormal NONE SEEN [facility] Comment on above: Performed By: #### D RUGRPD, UAMIC ####[facility] [address] [place], [place] [address]On. Chrissy Frazier XR ABD FLAT UP_PA Enoch 07-01 XR ABD FLAT UP_PA CH Normal [facility] Covid-19 PCR (CVDTB)on SARS-CoV-2 (COVID-19) RNA RHIANNON+probe Ql (Unsp spec) Not detected Normal NOT DETECTED [facility] Comment on above: Result Comment: [...] for this test is supported by the [employer] Driver of Health and Human Service's declaration that [...] longer be used). Performed By: #### C VDPETER [facility] ####[facility] [address] [place], [place] [address]Qo. Chrissy Frazier SYMPTOMATIC COVID-19 ANTIGEN on 04-23-2022 EUA Statement SEE BELOW Normal [facility] Comment on above: Result [...] revoked sooner. Performed By: #### C VDAGS ####[facility] [address] [place] [address]Dr. Chrissy Frazier SARS-CoV-2 (COVID-19) RNA RHIANNON+probe Ql (Unsp spec) Negative Normal NEGATIVE [facility] Comment on above: Performed By: #### C VDAGS ####[facility] Ohxjpq[address]sc[address] [place], [place] [address]Dr. Chrissy Frazier AMYLASEon 04-04-2022 Amylase [Catalytic activity/Vol] 40 U/L Normal 25-115 [facility] Comment on above: Performed By: #### C MP, TERRENCE, LIPA ####[facility] Mpwqubrphz[address] [place], [place] [address]Dr. Chrissy Frazier CBC AUTO DIFFon 04-04-2022 BASO # 0.1 103/ul Normal 0.0-0.1 [facility] Comment on above: Performed By: #### C BC ####[facility] Nyjvucumsf[address] [place], [place] [address]Dr. Chrissy Frazier Basophils/100 WBC (Bld) 0.4 % Normal 0.2-2.0 [facility] Comment on above: Performed By: #### C BC ####[facility] Igxwacnblx[address] [place], [place] [address]Dr. Chrissy Frazier EO # 0.1 103/ul Normal 0.0-0.7 [facility] Comment on above: Performed By: #### C BC ####[facility] Lgxsuypelo0[address] [place], [place] [address]Dr. Chrissy Frazier Eosinophils/100 WBC (Bld) 0.6 % Critically low 0.9-7.0 [facility] Comment on above: Performed By: #### C BC ####[facility] Lmsanfmezi[address] [place], [place] [address]Dr. Chrissy Frazier Erythrocyte distribution width (RBC) [Ratio] 13.2 % Normal 11.0-15.0 [facility] Comment on above: Performed By: #### C BC ####[facility] [address] [place] [address]Dr. Chrissy Frazier Hematocrit (Bld) [Volume fraction] 48.3 % Normal 42.0-54.0 [facility] Comment on above: Performed By: #### C BC ####[facility] F[address]vguvyf[address] [place] [address]Dr. Chrissy Frazier Hemoglobin (Bld) [Mass/Vol] 16.1 g/dL Normal 14.0-18.0 [facility] Comment on above: Performed By: #### C BC ####[facility] Mmxwdoihen0[address] [place], [place] [address]Dr. Chrissy Frazier IG # 0.12 10e3/ul Critically high 0.00-0.03 [facility] Comment on above: Performed By: #### C BC ####[facility] Jgkukxkoqh[address] [place], [place] [address]Dr. Chrissy Frazier IG % 0.9 % Critically high 0.0-0.[address] [facility] Comment on above: Performed By: #### C BC ####[facility] Iqjprdlurw11[address] [place], [place] [address]Dr. Chrissy Frazier LYMPH # 3.0 103/ul Normal 1.2-3.8 [facility] Comment on above: Performed By: #### C BC ####[facility] Wcnsmsxpki35[address] [place], [place] [address]Dr. Chrissy Frazier Lymphocytes/100 WBC (Bld) 22.3 % Normal 20.5-60.0 [facility] Comment on above: Performed By: #### C BC ####[facility] Cdeiawveqx153[address] [place], [place] [address]DrNancy Frazier MANUAL DIFF REQ NO Normal [facility] Comment on above: Performed By: #### C BC ####[facility] Fqhuvfibqw[address] [place], [place] [address]DrNancy Frazier MCH (RBC) [Entitic mass] 28.6 pg Normal 25.9-34.0 [facility] Comment on above: Performed By: #### C BC ####[facility] [address] [place] [phone]. Chrissy Freddie MCHC (RBC) [Mass/Vol] 33.3 g/dL Normal 29.9-35.2 [facility] Comment on above: Performed By: #### C BC ####[facility] [address] [place] [phone]. Tishrowan Freddie MCV (RBC) [Entitic vol] 85.9 fL Normal 80.0-94.0 [facility] Comment on above: Performed By: #### C BC ####[facility] Gpqneeubgx[address] [place], [place] [address]Dr. Chrissy Frazier MONO # 0.8 103/ul Normal 0.3-0.8 [facility] Comment on above: Performed By: #### C BC ####[facility] Kzgqlneqqq5[address] [place], [place] [address]Dr. Chrissy Frazier Monocytes/100 WBC (Bld) 5.7 % Normal 1.7-12.0 [facility] Comment on above: Performed By: #### C BC ####[facility] S[address] [place], [place] [address]Dr. Chrissy Frazier NEUT # 9.3 103/ul Critically high 1.4-6.5 [facility] Comment on above: Performed By: #### C BC ####[facility] [address]jprw[address] [place], [place] [address]Dr. Chrissy Frazier Neutrophils/100 WBC (Bld) 70.1 % Normal 43.0-75.0 [facility] Comment on above: Performed By: #### C BC ####[facility] Jcrnjcinyg[address] [place], [place] [address]DrNancy Frazier Platelet mean volume (Bld) [Entitic vol] 10.3 fL Normal 9.5-13.5 [facility] Comment on above: Performed By: #### C BC ####[facility] Eqvwbrmobl[address] [place], [place] [address]Dr. Chrissy Frazier PLT 461 103/ul Critically high 150-450 [facility] Comment on above: Performed By: #### C BC ####[facility] [address] [place] [address]Dr. Tishrowan Freddie RBC 5.62 106/ul Normal 4.70-6.10 [facility] Comment on above: Performed By: #### C BC ####[facility] [address]uc[address] [place] [phone]. Chrissy Frazier WBC 13.3 103/ul Critically high 4.0-11.0 [facility] Comment on above: Performed By: #### C BC ####[facility] [address]vcc[address] [place] [address]Dr. Chrissy Frazier LIPASEon 04-04-2022 Lipase [Catalytic activity/Vol] 118.0 U/L Normal 73.0-393.0 [facility] Comment on above: Performed By: #### C MP, TERRENCE, LIPA ####[facility] [address]uz[address]ukm[address] [place] [address]Dr. Chrissy Frazier PROF 14(COMP METB)on 022 Albumin [Mass/Vol] 4.3 g/dL Normal 3.4-5.0 [facility] Comment on above: Performed By: #### C MP, TERRENCE, LIPA ####[facility] [address]etej[address] [place] [address]Dr. Chrissy Frazier Albumin/Globulin [Mass ratio] 1.0 {ratio} Normal [facility] Comment on above: Performed By: #### C MP, TERRENCE, LIPA ####[facility] [address]zfrctdx[address] [place] [address]Dr. Chrissy Frazier ALP [Catalytic activity/Vol] 84 U/L Normal 46-116 [facility] Comment on above: Performed By: #### C MP, TERRENCE, LIPA ####[facility] [address]chlv[address] [place] [address]Dr. Chrissy Frazier ALT [Catalytic activity/Vol] 81 U/L Critically high 16-63 [facility] Comment on above: Performed By: #### C MP, TERRENCE, LIPA ####[facility] [address] [place] [phone]. Chrissy Frazier Anion gap [Moles/Vol] 17.9 mmol/L Normal [facility] Comment on above: Performed By: #### C MP, TERRENCE, LIPA ####[facility] Qfxqryaryf[address] [place] [address]Dr. Chrissy Frazeir AST [Catalytic activity/Vol] 25 U/L Normal 15-37 [facility] Comment on above: Performed By: #### C MP, TERRENCE, LIPA ####[facility] [address]nxjqiuk[address] [place] [address]Dr. Chrissy Frazier Bilirubin [Mass/Vol] 0.5 mg/dL Normal 0.2-1.0 [facility] Comment on above: Performed By: #### C MP, TERRENCE, LIPA ####[facility] [address]qdm[address] [place] [address]Dr. Chrissy Frazier Calcium [Mass/Vol] 9.6 mg/dL Normal 8.5-10.1 [facility] Comment on above: Performed By: #### C MP, TERRENCE, LIPA ####[facility] [address] [place] [address]Dr. Chrissy Frazier Chloride [Moles/Vol] 101 mmol/L Normal 98-107 [facility] Comment on above: Performed By: #### C MP, TERRENCE, LIPA ####[facility] Admextnjsg4[address] [place] [address]Dr. Chrissy Frazier CO2 [Moles/Vol] 18.6 mmol/L Critically low 21.0-32.0 [facility] Comment on above: Performed By: #### C MP, TERRENCE, LIPA ####[facility] X[address]ufhq36[address] [place] [address]Dr. Chrissy Frazier Creatinine [Mass/Vol] 1.39 mg/dL Critically high 0.70-1.30 [facility] Comment on above: Performed By: #### C MP, TERRENCE, LIPA ####[facility] [address] [place] [address]Dr. Chrissy Frazier EGFR-AF MONEGASQUE >60 Normal >=60 [facility] Comment on above: Performed By: #### C MP, TERRENCE, LIPA ####[facility] [address]itydbo[address] [place] [address]Dr. Chrissy Frazier EGFR-NON AF MONEGASQUE 59 mL/min/1.73m2 Critically low >=60 [facility] Comment on above: Performed By: #### C MP, TERRENCE, LIPA ####[facility] Ab[address]ccknr[address] [place] [address]Dr. Chrissy Frazier Globulin (S) [Mass/Vol] 4.3 g/dL Normal [facility] Comment on above: Performed By: #### C MP, TERRENCE, LIPA ####[facility] Slxbermbya2[address] [place] [address]Dr. Chrissy Frazier Glucose [Mass/Vol] 132 mg/dL Critically high 74-106 [facility] Comment on above: Performed By: #### C MP, TERRENCE, LIPA ####[facility] Qxualfcrhj[address] [place], [place] [address]Dr. Chrissy Frazier Potassium [Moles/Vol] 3.5 mmol/L Normal 3.5-5.1 [facility] Comment on above: Performed By: #### C MP, TERRENCE, LIPA ####[facility] Yjavdxwlve[address] [place], [place] [address]Dr. Chrissy Frazier Protein [Mass/Vol] 8.6 g/dL Critically high 6.4-8.2 [facility] Comment on above: Performed By: #### C MP, TERRENCE, LIPA ####[facility] [address]ubcxpccc[address] [place] [address]Dr. Chrissy Frazier Sodium [Moles/Vol] 134 mmol/L Critically low 136-145 [facility] Comment on above: Performed By: #### C MP, TERRENCE, LIPA ####[facility] Yimdqxwolm[address] [place] [address]Dr. Chrissy Frazier Urea nitrogen [Mass/Vol] 8.0 mg/dL Normal 7.0-18.0 [facility] Comment on above: Performed By: #### C MP, TERRENCE, LIPA ####[facility] V[address]qzrjvo[address] [place] [address]Dr. Chrissy Frazier Urea nitrogen/Creatinine [Mass ratio] 5.8 mg/mg Normal [facility] Comment on above: Performed By: #### C TERRENCE ADAIR LIPA ####[facility] [address]wmpcotl[address] [place] [address]Dr. Chrissy Frazier XR ABD FLAT UP_PA Enoch 04-04 XR ABD FLAT UP_PA CH Normal [facility] AMMONIAon 03-31-2022 Ammonia (P) [Moles/Vol] 19 umol/L Normal 11-32 [facility] Comment on above: Performed By: #### A MM ####[facility] Hxebxdcqkk[address] [place], [place] [address]Dr. Chrissy Freddie CBC AUTO DIFFon 03-31-2022 BASO # 0.1 103/ul Normal 0.0-0.1 [facility] Comment on above: Performed By: #### C BC ####[facility] Dqeditcagg[address] [place], [place] [address]Dr. Chrissy Freddie Basophils/100 WBC (Bld) 0.5 % Normal 0.2-2.0 [facility] Comment on above: Performed By: #### C BC ####[facility] Ttmutxxnfn[address] [place], [place] [address]Dr. Chrissy Frazier EO # 0.2 103/ul Normal 0.0-0.7 [facility] Comment on above: Performed By: #### C BC ####[facility] Nphzonvmxn[address] [place], [place] [address]Dr. Tishrowan Frazier Eosinophils/100 WBC (Bld) 1.6 % Normal 0.9-7.0 [facility] Comment on above: Performed By: #### C BC ####[facility] Xbmlzixlld[address] [place], [place] [address]Dr. Chrissy Freddie Erythrocyte distribution width (RBC) [Ratio] 13.2 % Normal 11.0-15.0 [facility] Comment on above: Performed By: #### C BC ####[facility] Mwvoqwekcs[address] [place], [place] [address]Dr. Chrissy Frazier Hematocrit (Bld) [Volume fraction] 42.1 % Normal 42.0-54.0 [facility] Comment on above: Performed By: #### C BC ####[facility] Owt[address]oei[address] [place] [address]Dr. Chrissy Frazier Hemoglobin (Bld) [Mass/Vol] 14.3 g/dL Normal 14.0-18.0 [facility] Comment on above: Performed By: #### C BC ####[facility] E[address]wnccfoh36[address] [place] [address]Dr. Chrissy Frazier IG # 0.05 10e3/ul Critically high 0.00-0.03 [facility] Comment on above: Performed By: #### C BC ####[facility] Epqgtajtne5[address] [place] [address]Dr. Chrissy Frazier IG % 0.5 % Normal 0.0-0.5 [facility] Comment on above: Performed By: #### C BC ####[facility] Mmkmtwyklz6434 [place] [address]Dr. Chrissy Frazier LYMPH # 2.9 103/ul Normal 1.2-3.8 [facility] Comment on above: Performed By: #### C BC ####[facility] Cugptxfrkb[address]65 [place] [address]Dr. Chrissy Frazier Lymphocytes/100 WBC (Bld) 25.7 % Normal 20.5-60.0 [facility] Comment on above: Performed By: #### C BC ####[facility] Boguidcatw[address]83 [place] [address]Dr. Chrissy Frazier MANUAL DIFF REQ NO Normal [facility] Comment on above: Performed By: #### C BC ####[facility] [address]muzlsqeus[address] [place] [address]Dr. Chrissy Frazier MCH (RBC) [Entitic mass] 29.2 pg Normal 25.9-34.0 [facility] Comment on above: Performed By: #### C BC ####[facility] Oftqcweyno8614 [place] [address]Dr. Chrissy Frazier MCHC (RBC) [Mass/Vol] 34.0 g/dL Normal 29.9-35.2 [facility] Comment on above: Performed By: #### C BC ####[facility] Ibrjdmqmfd38[address] [place] [phone]. Chrissy Frazier MCV (RBC) [Entitic vol] 85.9 fL Normal 80.0-94.0 [facility] Comment on above: Performed By: #### C BC ####[facility] Tdxwqmsien9952 [place] [phone]. Chrissy Freddie MONO # 1.0 103/ul Critically high 0.3-0.8 [facility] Comment on above: Performed By: #### C BC ####[facility] Ievdqmnske1717 [place] [address]Dr. Chrissy Frazier Monocytes/100 WBC (Bld) 8.6 % Normal 1.7-12.0 [facility] Comment on above: Performed By: #### C BC ####[facility] Veyyyjpwzh[address] [place], [place] [address]Dr. Chrissy Frazier NEUT # 7.0 103/ul Critically high 1.4-6.5 [facility] Comment on above: Performed By: #### C BC ####[facility] Fhbupstqop25[address] [place], [place] [address]Dr. Tishrowan Frazier Neutrophils/100 WBC (Bld) 63.1 % Normal 43.0-75.0 [facility] Comment on above: Performed By: #### C BC ####[facility] Pxvqqhaief9306 [place] [phone]. Tishrowan Frazier Platelet mean volume (Bld) [Entitic vol] 10.4 fL Normal 9.5-13.5 [facility] Comment on above: Performed By: #### C BC ####[facility] Yekzjdgsxm76[address] [place] [phone]. Chrissy Frazier PLT 308 103/ul Normal 150-450 [facility] Comment on above: Performed By: #### C BC ####[facility] Iqojfuznce16[address] [place], [place] [address]Dr. Chrissy Frazier RBC 4.90 106/ul Normal 4.70-6.10 [facility] Comment on above: Performed By: #### C BC ####[facility] Iayzbjcrvf2723 [place] [address]Dr. Tishrowan Freddie WBC 11.1 103/ul Critically high 4.0-11.0 [facility] Comment on above: Performed By: #### C BC ####[facility] Geuzoujizo8240 [place] [address]Dr. Chrissy Frazier PROF 14(COMP METB)on 022 Albumin [Mass/Vol] 3.5 g/dL Normal 3.4-5.0 [facility] Comment on above: Performed By: #### C MP ####[facility] Jldexhrbbf5[address] [place], [place] [address]Dr. Chrissy Frazier Albumin/Globulin [Mass ratio] 0.9 {ratio} Normal [facility] Comment on above: Performed By: #### C MP ####[facility] Aobvwyrdax[address] [place], [place] [address]Dr. Tishrowan Frazier ALP [Catalytic activity/Vol] 68 U/L Normal 46-116 [facility] Comment on above: Performed By: #### C MP ####[facility] Yiijmissmf[address] [place], [place] [address]Dr. Chrissy Frazier ALT [Catalytic activity/Vol] 113 U/L Critically high 16-63 [facility] Comment on above: Performed By: #### C MP ####[facility] Quxegbtdmf429[address] [place], [place] [address]Dr. Chrissy Frazier Anion gap [Moles/Vol] 14.0 mmol/L Normal [facility] Comment on above: Performed By: #### C MP ####[facility] Unwvsmsbqy75[address] [place], [place] [address]Dr. Chrissy Frazier AST [Catalytic activity/Vol] 31 U/L Normal 15-37 [facility] Comment on above: Performed By: #### C MP ####[facility] Znukcvglil85[address] [place], [place] [address]Dr. Chrissy Frazier Bilirubin [Mass/Vol] 0.6 mg/dL Normal 0.2-1.0 [facility] Comment on above: Performed By: #### C MP ####[facility] Nuvpfoxbip[address] [place], [place] [address]Dr. Chrissy Frazier Calcium [Mass/Vol] 8.4 mg/dL Critically low 8.5-10.1 [facility] Comment on above: Performed By: #### C MP ####[facility] Glqgimoexf8516[address] [place], [place] [address]Dr. Chrissy Frazier Chloride [Moles/Vol] 101 mmol/L Normal 98-107 [facility] Comment on above: Performed By: #### C MP ####[facility] Visstwcnwj3711[address] [place], [place] [address]Dr. Chrissy Frazeir CO2 [Moles/Vol] 24.2 mmol/L Normal 21.0-32.0 [facility] Comment on above: Performed By: #### C MP ####[facility] Ffipgpkvvp18[address] [place], [place] [address]Dr. Chrissy Frazier Creatinine [Mass/Vol] 1.15 mg/dL Normal 0.70-1.30 [facility] Comment on above: Performed By: #### C MP ####[facility] Jcomizazvp666[address] [place], [place] [address]Dr. Chrissy Frazier EGFR-AF MONEGASQUE >60 Normal >=60 [facility] Comment on above: Performed By: #### C MP ####[facility] Mysagqosqs35[address] [place], [place] [address]Dr. Chrissy Frazier EGFR-NON AF MONEGASQUE >60 Normal >=60 [facility] Comment on above: Performed By: #### C MP ####[facility] Fnivvgpvyh4[address] [place], [place] [address]Dr. Chrissy Frazier Globulin (S) [Mass/Vol] 3.8 g/dL Normal [facility] Comment on above: Performed By: #### C MP ####[facility] Zargtgwuzd67[address] [place], [place] [address]Dr. Chrissy Frazier Glucose [Mass/Vol] 100 mg/dL Normal 74-106 [facility] Comment on above: Performed By: #### C MP ####[facility] [address]ymdnzxuys[address]67 [place] [address]Dr. Chrissy Frazier Potassium [Moles/Vol] 3.2 mmol/L Critically low 3.5-5.1 [facility] Comment on above: Performed By: #### C MP ####[facility] Ratkodjllf23[address] [place], [place] [address]Dr. Chrissy Frazier Protein [Mass/Vol] 7.3 g/dL Normal 6.4-8.2 [facility] Comment on above: Performed By: #### C MP ####[facility] Yivcgzgbzd[address] [place], [place] [address]Dr. Chrissy Frazier Sodium [Moles/Vol] 136 mmol/L Normal 136-145 [facility] Comment on above: Performed By: #### C MP ####[facility] Knmqxqlsqp496[address] [place], [place] [address]Dr. Chrissy Frazier Urea nitrogen [Mass/Vol] 13.0 mg/dL Normal 7.0-18.0 [facility] Comment on above: Performed By: #### C MP ####[facility] Hkngppqlba48[address] [place], [place] [address]Dr. Chrissy Frazier Urea nitrogen/Creatinine [Mass ratio] 11.3 mg/mg Normal [facility] Comment on above: Performed By: #### C MP ####[facility] Kmwoqnhiak[address] [place], [place] [address]Dr. Chrissy Frazier AMMONIAon 03-30-2022 Ammonia (P) [Mass/Vol] ug/dL Critically low 11-32 [facility] Comment on above: Performed By: #### A MM ####[facility] Usneqhpjjr249[address] [place], [place] [address]Dr. Chrissy Frazier CBC AUTO DIFFon 03-30-2022 BASO # 0.1 103/ul Normal 0.0-0.1 [facility] Comment on above: Performed By: #### C BC ####[facility] Cmnyadjsdu[address] [place], [place] [address]Dr. Chrissy Frazier Basophils/100 WBC (Bld) 0.5 % Normal 0.2-2.0 [facility] Comment on above: Performed By: #### C BC ####[facility] Iyyhqwcvoi6671 [place] [address]Dr. Chrissy Frazier EO # 0.1 103/ul Normal 0.0-0.7 [facility] Comment on above: Performed By: #### C BC ####[facility] Sfqjqifhwc7[address] [place], [place] [address]Dr. Chrissy Frazier Eosinophils/100 WBC (Bld) 1.1 % Normal 0.9-7.0 [facility] Comment on above: Performed By: #### C BC ####[facility] Foisxtfreb7424[address] [place], [place] [address]Dr. Chrissy Frazier Erythrocyte distribution width (RBC) [Ratio] 13.4 % Normal 11.0-15.0 [facility] Comment on above: Performed By: #### C BC ####[facility] Ullalulapl85[address] [place], [place] [address]Dr. Chrissy Frazier Hematocrit (Bld) [Volume fraction] 45.8 % Normal 42.0-54.0 [facility] Comment on above: Performed By: #### C BC ####[facility] Rywbxkkclc24[address] [place], [place] [address]Dr. Chrissy Frazier Hemoglobin (Bld) [Mass/Vol] 14.9 g/dL Normal 14.0-18.0 [facility] Comment on above: Performed By: #### C BC ####[facility] Kqhbplguwf9[address] [place], [place] [address]Dr. Chrissy Frazier IG # 0.05 10e3/ul Critically high 0.00-0.03 [facility] Comment on above: Performed By: #### C BC ####[facility] Ctfaaudaib[address] [place], [place] [address]Dr. Chrissy Frazier IG % 0.5 % Normal 0.0-0.5 [facility] Comment on above: Performed By: #### C BC ####[facility] Xvvobfhdgd7[address] [place], [place] [address]Dr. Chrissy Frazier LYMPH # 3.0 103/ul Normal 1.2-3.8 [facility] Comment on above: Performed By: #### C BC ####[facility] Xdpyjnugqb9063 [place] [address]Dr. Chrissy Frazier Lymphocytes/100 WBC (Bld) 30.2 % Normal 20.5-60.0 [facility] Comment on above: Performed By: #### C BC ####[facility] Unfoklpzet2883 [place] [address]Dr. Chrissy Frazier MANUAL DIFF REQ NO Normal [facility] Comment on above: Performed By: #### C BC ####[facility] Xusktrqwaj0337 [place] [address]Dr. Chrissy Frazier MCH (RBC) [Entitic mass] 28.4 pg Normal 25.9-34.0 [facility] Comment on above: Performed By: #### C BC ####[facility] Klgcgstdij18[address] [place], [place] [address]Dr. Chrissy Frazier MCHC (RBC) [Mass/Vol] 32.5 g/dL Normal 29.9-35.2 [facility] Comment on above: Performed By: #### C BC ####[facility] Uejnrgdlyn[address] [place], [place] [address]Dr. Chrissy Frazier MCV (RBC) [Entitic vol] 87.4 fL Normal 80.0-94.0 [facility] Comment on above: Performed By: #### C BC ####[facility] Gxdegdbfri[address] [place], [place] [address]Dr. Chrissy Frazier MONO # 0.8 103/ul Normal 0.3-0.8 [facility] Comment on above: Performed By: #### C BC ####[facility] Njldukibtf[address] [place], [place] [address]Dr. Chrissy Frazier Monocytes/100 WBC (Bld) 7.9 % Normal 1.7-12.0 [facility] Comment on above: Performed By: #### C BC ####[facility] Malwrgqpvb4[address] [place], [place] [address]Dr. Yirowan Frazier NEUT # 5.9 103/ul Normal 1.4-6.5 [facility] Comment on above: Performed By: #### C BC ####[facility] Viqwsxxvhh6[address] [place] [address]DrNancy Frazier Neutrophils/100 WBC (Bld) 59.8 % Normal 43.0-75.0 [facility] Comment on above: Performed By: #### C BC ####[facility] Qwxmkoylpx8284 [place] [address]DrNancy Frazier Platelet mean volume (Bld) [Entitic vol] 10.1 fL Normal 9.5-13.5 [facility] Comment on above: Performed By: #### C BC ####[facility] Igifmeoxlp180[address] [place], [place] [address]DrNancy Frazier PLT 320 103/ul Normal 150-450 [facility] Comment on above: Performed By: #### C BC ####[facility] Yugxsneorm413[address] [place], [place] [address]DrNancy Frazier RBC 5.24 106/ul Normal 4.70-6.10 [facility] Comment on above: Performed By: #### C BC ####[facility] Xrijpjanee26[address] [place], [place] [address]DrNancy Frazier WBC 9.9 103/ul Normal 4.0-11.0 [facility] Comment on above: Performed By: #### C BC ####[facility] Nmbcwvrltq7[address] [place], [place] [address]Dr. Chrissy Frazier PROF 14(COMP METB)on 022 Albumin [Mass/Vol] 3.9 g/dL Normal 3.4-5.0 [facility] Comment on above: Performed By: #### C MP ####[facility] Lnmzhffnjt4879[address] [place], [place] [address]DrNancy Frazier Albumin/Globulin [Mass ratio] 1.1 {ratio} Normal [facility] Comment on above: Performed By: #### C MP ####[facility] Sentgxkrxr6459[address] [place], [place] [address]DrNancy Lowe Frazier ALP [Catalytic activity/Vol] 88 U/L Normal 46-116 [facility] Comment on above: Performed By: #### C MP ####[facility] Dfjehbalzv5[address] [place] [address]Dr. Chrissy Frazier ALT [Catalytic activity/Vol] 161 U/L Critically high 16-63 [facility] Comment on above: Performed By: #### C MP ####[facility] Xzsrwhypqy6245[address] [place], [place] [address]Dr. Chrissy Freddie Anion gap [Moles/Vol] 12.3 mmol/L Normal [facility] Comment on above: Performed By: #### C MP ####[facility] Tfaqwehurm1712[address] [place], [place] [address]Dr. Chrissy Freddie AST [Catalytic activity/Vol] 64 U/L Critically high 15-37 [facility] Comment on above: Performed By: #### C MP ####[facility] Hrqladuinl4744[address] [place], [place] [address]Dr. Chrissy Freddie Bilirubin [Mass/Vol] 0.8 mg/dL Normal 0.2-1.0 [facility] Comment on above: Performed By: #### C MP ####[facility] Xypwmtmolk6564[address] [place], [place] [address]Dr. Chrissy Freddie Calcium [Mass/Vol] 8.4 mg/dL Critically low 8.5-10.1 [facility] Comment on above: Performed By: #### C MP ####[facility] Rzbfxpqugx1130[address] [place], [place] [address]Dr. Chrissy Freddie Chloride [Moles/Vol] 103 mmol/L Normal 98-107 [facility] Comment on above: Performed By: #### C MP ####[facility] Uddebbpkna6657[address] [place], [place] [address]Dr. Chrissy Frazier CO2 [Moles/Vol] 26.5 mmol/L Normal 21.0-32.0 [facility] Comment on above: Performed By: #### C MP ####[facility] Rlvhpogrer0495[address] [place], [place] [address]Dr. Chirssy Frazier Creatinine [Mass/Vol] 1.24 mg/dL Normal 0.70-1.30 [facility] Comment on above: Performed By: #### C MP ####[facility] Ltxnwwywpa50[address] [place] [address]Dr. Chrissy Frazier EGFR-AF MONEGASQUE >60 Normal >=60 [facility] Comment on above: Performed By: #### C MP ####[facility] Jiagljdibr9296 [place] [address]Dr. Chrissy Freddie EGFR-NON AF MONEGASQUE >60 Normal >=60 [facility] Comment on above: Performed By: #### C MP ####[facility] Ghkclxevxx9014 [place] [address]Dr. Chrissy Freddie Globulin (S) [Mass/Vol] 3.7 g/dL Normal [facility] Comment on above: Performed By: #### C MP ####[facility] Ibprcafqhw5178[address] [place], [place] [address]Dr. Chrissy Freddie Glucose [Mass/Vol] 108 mg/dL Critically high 74-106 [facility] Comment on above: Performed By: #### C MP ####[facility] Ruosmsjvuf7079 [place] [address]Dr. Chrissy Freddie Potassium [Moles/Vol] 3.8 mmol/L Normal 3.5-5.1 [facility] Comment on above: Performed By: #### C MP ####[facility] Pkpdnwnkoe2895 [place] [address]Dr. Chrissy Freddie Protein [Mass/Vol] 7.6 g/dL Normal 6.4-8.2 [facility] Comment on above: Performed By: #### C MP ####[facility] Rzunerfdir4361 [place] [address]Dr. Chrissy Frazier Sodium [Moles/Vol] 138 mmol/L Normal 136-145 [facility] Comment on above: Performed By: #### C MP ####[facility] Fhhnupucjt7542 [place] [address]Dr. Chrissy Freddie Urea nitrogen [Mass/Vol] 12.0 mg/dL Normal 7.0-18.0 [facility] Comment on above: Performed By: #### C MP ####[facility] Oulvukssld136[address] [place], [place] [address]Dr. Chrissy Frazier Urea nitrogen/Creatinine [Mass ratio] 9.7 mg/mg Normal [facility] Comment on above: Performed By: #### C MP ####[facility] Bmunpowopf8814[address] [place], [place] [address]Dr. Chrissy Frazier AMMONIAon 03-29-2022 Ammonia (P) [Moles/Vol] 27 umol/L Normal 11-32 [facility] Comment on above: Performed By: #### A MM ####[facility] Yhpueeuqya7311[address] [place], [place] [address]Dr. Chrissy Frazier AMYLASEon 03-29-2022 Amylase [Catalytic activity/Vol] 29 U/L Normal 25-115 [facility] Comment on above: Performed By: #### L IPA, TERRENCE ####[facility] Lvntwqjoav4659[address] [place], [place] [address]Dr. Chrissy Frazier CBC AUTO DIFFon 03-29-2022 BASO # 0.0 103/ul Normal 0.0-0.1 [facility] Comment on above: Performed By: #### C BC ####[facility] Nbfdynjeku6559[address] [place], [place] [address]Dr. Chrissy Frazier Basophils/100 WBC (Bld) 0.2 % Normal 0.2-2.0 [facility] Comment on above: Performed By: #### C BC ####[facility] Kgezqdayxt399[address] [place], [place] [address]Dr. Chrissy Frazier EO # 0.0 103/ul Normal 0.0-0.7 [facility] Comment on above: Performed By: #### C BC ####[facility] Ziijkkbqqx9778[address] [place], [place] [address]Dr. Chrissy Frazier Eosinophils/100 WBC (Bld) 0.4 % Critically low 0.9-7.0 [facility] Comment on above: Performed By: #### C BC ####[facility] Pfizonfzqp1050[address] [place], [place] [address]Dr. Chrissy Frazier Erythrocyte distribution width (RBC) [Ratio] 13.6 % Normal 11.0-15.0 [facility] Comment on above: Performed By: #### C BC ####[facility] [address]fbrzpvzxt[address] [place] [address]Dr. Chrissy Frazier Hematocrit (Bld) [Volume fraction] 45.2 % Normal 42.0-54.0 [facility] Comment on above: Performed By: #### C BC ####[facility] Hndnmeynkv806[address] [place], [place] [address]Dr. Chrissy Frazier Hemoglobin (Bld) [Mass/Vol] 14.8 g/dL Normal 14.0-18.0 [facility] Comment on above: Performed By: #### C BC ####[facility] Kxugczlnhz4448[address] [place], [place] [address]Dr. Tishrowan Frazier IG # 0.03 10e3/ul Normal 0.00-0.03 [facility] Comment on above: Performed By: #### C BC ####[facility] Geuofbozne4707[address] [place], [place] [address]Dr. Chrissy Frazier IG % 0.3 % Normal 0.0-0.5 [facility] Comment on above: Performed By: #### C BC ####[facility] Giqpfqczcv9316[address] [place], [place] [address]Dr. Chrissy Frazier LYMPH # 2.0 103/ul Normal 1.2-3.8 [facility] Comment on above: Performed By: #### C BC ####[facility] Zskvwobpjc7665[address] [place], [place] [address]Dr. Chrissy Freddie Lymphocytes/100 WBC (Bld) 18.3 % Critically low 20.5-60.0 [facility] Comment on above: Performed By: #### C BC ####[facility] Hmtdxtzztc8090[address] [place], [place] [address]Dr. Tishrowan Frazier MANUAL DIFF REQ NO Normal [facility] Comment on above: Performed By: #### C BC ####[facility] Cxcolarmdl788244 [address] [place], [place] [address]Dr. Chrissy Frazier MCH (RBC) [Entitic mass] 28.5 pg Normal 25.9-34.0 [facility] Comment on above: Performed By: #### C BC ####[facility] Ztssqachjd6[address] [place] [address]Dr. Chrissy Frazier MCHC (RBC) [Mass/Vol] 32.7 g/dL Normal 29.9-35.2 [facility] Comment on above: Performed By: #### C BC ####[facility] Pbrsuxjwhr958[address] [place], [place] [address]Dr. Chrissy Frazier MCV (RBC) [Entitic vol] 87.1 fL Normal 80.0-94.0 [facility] Comment on above: Performed By: #### C BC ####[facility] Qemfrfkpig6088[address] [place], [place] [address]Dr. Chrissy Frazier MONO # 0.9 103/ul Critically high 0.3-0.8 [facility] Comment on above: Performed By: #### C BC ####[facility] Hkjbdxgrnt20[address] [place], [place] [address]Dr. Chrissy Frazier Monocytes/100 WBC (Bld) 8.6 % Normal 1.7-12.0 [facility] Comment on above: Performed By: #### C BC ####[facility] Pdaolmmncp[address] [place], [place] [address]Dr. Tishrowan Frazier NEUT # 7.8 103/ul Critically high 1.4-6.5 [facility] Comment on above: Performed By: #### C BC ####[facility] Glarefklgr3425[address] [place], [place] [address]Dr. Chrissy Frazier Neutrophils/100 WBC (Bld) 72.2 % Normal 43.0-75.0 [facility] Comment on above: Performed By: #### C BC ####[facility] Jtuzmojccg9[address] [place], [place] [address]Dr. Chrissy Frazier Platelet mean volume (Bld) [Entitic vol] 10.1 fL Normal 9.5-13.5 [facility] Comment on above: Performed By: #### C BC ####[facility] [address]ttxuqs[address] [place] [phone]. Chrissy Frazier PLT 329 103/ul Normal 150-450 [facility] Comment on above: Performed By: #### C BC ####[facility] Ijuqyoqboy9926 [place] [phone]. Chrissy Frazier RBC 5.19 106/ul Normal 4.70-6.10 [facility] Comment on above: Performed By: #### C BC ####[facility] Tdqwacvkwg0981 [place] [phone]. Chrissy Frazier WBC 10.8 103/ul Normal 4.0-11.0 [facility] Comment on above: Performed By: #### C BC ####[facility] Ttjlfayhjc5[address] [place] [address]Dr. Chrissy Frazier LIPASEon 03-29-2022 Lipase [Catalytic activity/Vol] 58.0 U/L Critically low 73.0-393.0 [facility] Comment on above: Performed By: #### L TERRENCE VICTORIA ####[facility] Yfxlyeddax16[address] [place] [address]Dr. Chrissy Frazier NM HEPATOBILIARY SCAN W EFon 03-29-2022 NM HEPATOBILIARY SCAN W EF Normal [facility] PROF 14(COMP METB)on 022 Albumin [Mass/Vol] 3.8 g/dL Normal 3.4-5.0 [facility] Comment on above: Performed By: #### C MP ####[facility] Xwbsvmdqxt85[address] [place] [address]Dr. Chrissy Frazier Albumin/Globulin [Mass ratio] 1.0 {ratio} Normal [facility] Comment on above: Performed By: #### C MP ####[facility] Sjpzxtfswu1791 [place] [phone]. Tishrowan Frazier ALP [Catalytic activity/Vol] 69 U/L Normal 46-116 [facility] Comment on above: Performed By: #### C MP ####[facility] Eotppsutoj8226 [place] [address]Dr. Chrissy Frazier ALT [Catalytic activity/Vol] 117 U/L Critically high 16-63 [facility] Comment on above: Performed By: #### C MP ####[facility] Hxflzvlbkv9819 [place] [phone]. Chrissy Frazier Anion gap [Moles/Vol] 16.7 mmol/L Normal [facility] Comment on above: Performed By: #### C MP ####[facility] Avkgcztkiw1115 [place] [phone]. Chrissy Frazier AST [Catalytic activity/Vol] 77 U/L Critically high 15-37 [facility] Comment on above: Performed By: #### C MP ####[facility] Yqasartqok6124 [place] [phone]. Chrissy Freddie Bilirubin [Mass/Vol] 1.5 mg/dL Critically high 0.2-1.0 [facility] Comment on above: Performed By: #### C MP ####[facility] Dknythqvoo0878 [place] [address]Dr. Tishrowan Freddie Calcium [Mass/Vol] 8.1 mg/dL Critically low 8.5-10.1 [facility] Comment on above: Performed By: #### C MP ####[facility] Yejpkgisfj7769 [place] [address]Dr. Chrissy Freddie Chloride [Moles/Vol] 101 mmol/L Normal 98-107 [facility] Comment on above: Performed By: #### C MP ####[facility] Dikezbfxwk1559 [place] [phone]. Chrissy Freddie CO2 [Moles/Vol] 24.5 mmol/L Normal 21.0-32.0 [facility] Comment on above: Performed By: #### C MP ####[facility] Mbbxjtwxwv9778 [place] [phone]. Chrissy Freddie Creatinine [Mass/Vol] 1.17 mg/dL Normal 0.70-1.30 [facility] Comment on above: Performed By: #### C MP ####[facility] Eafeaqzioo7528 [place] [phone]. Chrissy Freddie EGFR-AF MONEGASQUE >60 Normal >=60 [facility] Comment on above: Performed By: #### C MP ####[facility] Xysswqcbnq5360 [place] [phone]. Chrissy Frazier EGFR-NON AF MONEGASQUE >60 Normal >=60 [facility] Comment on above: Performed By: #### C MP ####[facility] Yzjqktcwro2064 [place] [phone]. Chrissy Frazier Globulin (S) [Mass/Vol] 3.9 g/dL Normal [facility] Comment on above: Performed By: #### C MP ####[facility] Gjhqptnafa1902 [place] [address]Dr. Chrissy Frazier Glucose [Mass/Vol] 104 mg/dL Normal 74-106 [facility] Comment on above: Performed By: #### C MP ####[facility] Qzwpqzoykg3850 [place] [address]Dr. Chrissy Frazier Potassium [Moles/Vol] 3.2 mmol/L Critically low 3.5-5.1 [facility] Comment on above: Performed By: #### C MP ####[facility] Ukxozbtfey0463 [place] [address]Dr. Chrissy Frazier Protein [Mass/Vol] 7.7 g/dL Normal 6.4-8.2 [facility] Comment on above: Performed By: #### C MP ####[facility] Lvrhfacpbt5678 [place] [address]Dr. Chrissy Frazier Sodium [Moles/Vol] 139 mmol/L Normal 136-145 [facility] Comment on above: Performed By: #### C MP ####[facility] Twjzqfzleh3199 [place] [address]Dr. Chrissy Frazier Urea nitrogen [Mass/Vol] 11.0 mg/dL Normal 7.0-18.0 [facility] Comment on above: Performed By: #### C MP ####[facility] Yfrmsedymf3011 [place] [address]Dr. Chrissy Frazier Urea nitrogen/Creatinine [Mass ratio] 9.4 mg/mg Normal [facility] Comment on above: Performed By: #### C MP ####[facility] Ezmwwbicdf4697 [place] [address]Dr. Chrissy Frazier US SINGLE QUAD RT UPPERon US SINGLE QUAD RT UPPER Normal [facility] AMMONIAon 03-28-2022 Ammonia (P) [Moles/Vol] 12 umol/L Normal 11-32 [facility] Comment on above: Performed By: #### A MM ####[facility] Elgdfcizhl0933 [place] [address]Dr. Chrissy Frazier CBC AUTO DIFFon 03-28-2022 BASO # 0.0 103/ul Normal 0.0-0.1 [facility] Comment on above: Performed By: #### C BC ####[facility] Ifcddgjxwz24[address] [place], [place] [address]Dr. Chrissy Frazier Basophils/100 WBC (Bld) 0.1 % Critically low 0.2-2.0 [facility] Comment on above: Performed By: #### C BC ####[facility] Ouxywpppeg55[address] [place], [place] [address]Dr. Chrissy Frazier EO # 0.0 103/ul Normal 0.0-0.7 [facility] Comment on above: Performed By: #### C BC ####[facility] Xukdtelamt29[address] [place], [place] [address]Dr. Chrissy Frazier Eosinophils/100 WBC (Bld) 0.0 % Critically low 0.9-7.0 [facility] Comment on above: Performed By: #### C BC ####[facility] Tmjqzpyufg60[address] [place], [place] [address]Dr. Chrissy Frazier Erythrocyte distribution width (RBC) [Ratio] 14.0 % Normal 11.0-15.0 [facility] Comment on above: Performed By: #### C BC ####[facility] Jrfksiojfw6427[address] [place], [place] [address]Dr. Chrissy Frazier Hematocrit (Bld) [Volume fraction] 44.2 % Normal 42.0-54.0 [facility] Comment on above: Performed By: #### C BC ####[facility] Eydiwuljwd6055[address] [place], [place] [address]Dr. Chrissy Freddie Hemoglobin (Bld) [Mass/Vol] 14.7 g/dL Normal 14.0-18.0 [facility] Comment on above: Performed By: #### C BC ####[facility] Yfqtxfbztj9152 [place] [address]Dr. Tishrowan Frazier IG # 0.10 10e3/ul Critically high 0.00-0.[address] [facility] Comment on above: Performed By: #### C BC ####[facility] Bznunzkbzk4319 [place] [address]Dr. Chrissy Frazier IG % 0.5 % Normal 0.0-0.5 [facility] Comment on above: Performed By: #### C BC ####[facility] Mjhlknhfkc4081 [place] [address]Dr. Chrissy Frazier LYMPH # 2.6 103/ul Normal 1.2-3.8 [facility] Comment on above: Performed By: #### C BC ####[facility] Gwzssutqzg4116 [place] [address]Dr. Chrissy Frazier Lymphocytes/100 WBC (Bld) 13.8 % Critically low 20.5-60.0 [facility] Comment on above: Performed By: #### C BC ####[facility] Tkoqgqgkht36[address] [place] [address]Dr. Tishrowan Frazier MANUAL DIFF REQ NO Normal [facility] Comment on above: Performed By: #### C BC ####[facility] Nmxjhsokoa5[address] [place] [address]Dr. Chrissy Freddie MCH (RBC) [Entitic mass] 29.0 pg Normal 25.9-34.0 [facility] Comment on above: Performed By: #### C BC ####[facility] Vezkwywrks9769 [place] [address]Dr. Chrissy Freddie MCHC (RBC) [Mass/Vol] 33.3 g/dL Normal 29.9-35.2 [facility] Comment on above: Performed By: #### C BC ####[facility] Tkfbngebab9663 [place] [address]Dr. Chrissy Freddie MCV (RBC) [Entitic vol] 87.2 fL Normal 80.0-94.0 [facility] Comment on above: Performed By: #### C BC ####[facility] Ldfrjulwan3268 [place] [phone]. Chrissy Frazier MONO # 1.1 103/ul Critically high 0.3-0.8 [facility] Comment on above: Performed By: #### C BC ####[facility] Vucjyofzxe9390 [place] [address]Dr. Chrissy Frazier Monocytes/100 WBC (Bld) 5.9 % Normal 1.7-12.0 [facility] Comment on above: Performed By: #### C BC ####[facility] Pgnylgswbe[address] [place], [place] [address]Dr. Chrissy Freddie NEUT # 15.1 103/ul Critically high 1.4-6.5 [facility] Comment on above: Performed By: #### C BC ####[facility] Feqnaesqge37024[address] [place], [place] [address]Dr. Tishrowan Frazier Neutrophils/100 WBC (Bld) 79.7 % Critically high 43.0-75.0 [facility] Comment on above: Performed By: #### C BC ####[facility] Fknbtyhser7061 [place] [address]Dr. Chrissy rFazier Platelet mean volume (Bld) [Entitic vol] 10.3 fL Normal 9.5-13.5 [facility] Comment on above: Performed By: #### C BC ####[facility] Unilwiztxf17[address] [place], [place] [address]Dr. Chrissy Frazier PLT 358 103/ul Normal 150-450 [facility] Comment on above: Performed By: #### C BC ####[facility] Xtkuumwesj[address] [place], [place] [address]Dr. Chrissy Frazier RBC 5.07 106/ul Normal 4.70-6.10 [facility] Comment on above: Performed By: #### C BC ####[facility] Txomkrfeem[address] [place], [place] [address]Dr. Chrissy Frazier WBC 18.9 103/ul Critically high 4.0-11.0 [facility] Comment on above: Performed By: #### C BC ####[facility] Nctwynjhfw2286 [place] [address]DrNancy Frazier PROF 14(COMP METB)on 022 Albumin [Mass/Vol] 3.9 g/dL Normal 3.4-5.0 [facility] Comment on above: Performed By: #### C MP ####[facility] Ecwltnkdna2094 [place] [address]Dr. Chrissy Frazier Albumin/Globulin [Mass ratio] 1.1 {ratio} Normal [facility] Comment on above: Performed By: #### C MP ####[facility] Sedfabmtov1375 [place] [address]Dr. Chrissy Frazier ALP [Catalytic activity/Vol] 65 U/L Normal 46-116 [facility] Comment on above: Performed By: #### C MP ####[facility] Egmcugyatd224[address] [place], [place] [address]Dr. Chrissy Frazier ALT [Catalytic activity/Vol] 46 U/L Normal 16-63 [facility] Comment on above: Performed By: #### C MP ####[facility] Gklxyfpadc414[address] [place], [place] [address]Dr. Chrissy Frazier Anion gap [Moles/Vol] 13.2 mmol/L Normal [facility] Comment on above: Performed By: #### C MP ####[facility] Eqkwqtyjvu6170[address] [place], [place] [address]DrNancy Frazier AST [Catalytic activity/Vol] 33 U/L Normal 15-37 [facility] Comment on above: Performed By: #### C MP ####[facility] Beoxkrafjs410[address] [place], [place] [address]Dr. Chrissy Frazier Bilirubin [Mass/Vol] 0.8 mg/dL Normal 0.2-1.0 [facility] Comment on above: Performed By: #### C MP ####[facility] Zzdmjdvrkt[address] [place], [place] [address]Dr. Chrissy Frazier Calcium [Mass/Vol] 8.1 mg/dL Critically low 8.5-10.1 [facility] Comment on above: Performed By: #### C MP ####[facility] Ouxjslxouv0985 [place] [address]Dr. Chrissy Frazier Chloride [Moles/Vol] 102 mmol/L Normal 98-107 [facility] Comment on above: Performed By: #### C MP ####[facility] Uqbucsdmip1605 [place] [address]Dr. Chrissy Frazier CO2 [Moles/Vol] 24.0 mmol/L Normal 21.0-32.0 [facility] Comment on above: Performed By: #### C MP ####[facility] Eagddnocaf5[address] [place], [place] [address]Dr. Chrissy Frazier Creatinine [Mass/Vol] 1.26 mg/dL Normal 0.70-1.30 [facility] Comment on above: Performed By: #### C MP ####[facility] Kxtgafzkwz6[address] [place], [place] [address]Dr. Chrissy Frazier EGFR-AF MONEGASQUE >60 Normal >=60 [facility] Comment on above: Performed By: #### C MP ####[facility] Pidzcgjpiu88[address] [place], [place] [address]Dr. Chrissy Frazier EGFR-NON AF MONEGASQUE >60 Normal >=60 [facility] Comment on above: Performed By: #### C MP ####[facility] Aifxsiypqt3544 [place] [address]Dr. Chrissy Frazier Globulin (S) [Mass/Vol] 3.7 g/dL Normal [facility] Comment on above: Performed By: #### C MP ####[facility] Vzephbnurf8778 [place] [address]Dr. Chrissy Frazier Glucose [Mass/Vol] 119 mg/dL Critically high 74-106 [facility] Comment on above: Performed By: #### C MP ####[facility] Ptxtcxcpna3362 [place] [address]Dr. Chrissy Frazier Potassium [Moles/Vol] 3.2 mmol/L Critically low 3.5-5.1 [facility] Comment on above: Performed By: #### C MP ####[facility] Obxujcyoje6507 [place] [address]Dr. Chrissy Frazier Protein [Mass/Vol] 7.6 g/dL Normal 6.4-8.2 [facility] Comment on above: Performed By: #### C MP ####[facility] Glgvyjwyyd6760 [place] [address]Dr. Chrissy Frazier Sodium [Moles/Vol] 136 mmol/L Normal 136-145 [facility] Comment on above: Performed By: #### C MP ####[facility] Lubviwsbsw[address] [place], [place] [address]Dr. Chrissy Frazier Urea nitrogen [Mass/Vol] 14.0 mg/dL Normal 7.0-18.0 [facility] Comment on above: Performed By: #### C MP ####[facility] Jzcg[address] [place], [place] [address]Dr. Chrissy Frazier Urea nitrogen/Creatinine [Mass ratio] 11.1 mg/mg Normal [facility] Comment on above: Performed By: #### C MP ####[facility] Cjbqkpb[address] [place], [place] [address]Dr. Chrissy Freddie CBC W MANUAL DIFFon 03-27-20 22 ATYPICAL LYMPH # Normal The [facility] Comment on above: Performed By: #### C BCMAN ####[facility] Iqiqpxpx[address] [place], [place] [address]Dr. Chrissy Frazier ATYPICAL LYMPH % Normal [facility] Comment on above: Performed By: #### C BCMAN ####[facility] Vcevthaphj[address] [place], [place] [address]Dr. Chrissy Frazier BAND # 0.0 103/ul Normal 0.0-0.3 [facility] Comment on above: Performed By: #### C BCMAN ####[facility] [address] [place] [address]Dr. Chrissy Frazier BAND % 0 % Normal 0-5 [facility] Comment on above: Performed By: #### C BCMAN ####[facility] [address] [place] [phone]. Chrissy Frazier BASOM # 0.00 103/ul Normal 0.00-0.10 [facility] Comment on above: Performed By: #### C BCMAN ####[facility] [address] [place] [phone]. Chrissy Frazier BASOM % 0.0 % Critically low 0.2-2.0 The [facility] Comment on above: Performed By: #### C BCMAN ####[facility] [address] [place] [address]Dr. Chrissy Frazier BLAST # Normal [facility] Comment on above: Performed By: #### C BCLEANDRO ####[facility] [address] [place] [address]Dr. Chrissy Frazier BLAST % Normal [facility] Comment on above: Performed By: #### C BCLEANDRO ####[facility] Ysaob[address] [place], [place] [address]Dr. Chrissy Frazier CORRECTED WBC Normal 4.0-11.0 The [facility] Comment on above: Performed By: #### C BCLEANDRO ####[facility] [address] [place], [place] [address]Dr. Chrissy Frazier EOS # 0.00 103/ul Normal 0.00-0.70 [facility] Comment on above: Performed By: #### C BCLEANDRO ####[facility] [address] [place] [address]Dr. Chrissy Frazier EOS% 0.0 % Critically low 0.9-7.0 The [facility] Comment on above: Performed By: #### C BCLEANDRO ####[facility] [address] [place] [address]Dr. Chrissy Frazier HCT 47.3 % Normal 42.0-54.0 [facility] Comment on above: Performed By: #### C BCLEANDRO ####[facility] [address]xvoxy[address] [place], [place] [address]Dr. Chrissy Frazier HGB 16.4 g/dl Normal 14.0-18.0 [facility] Comment on above: Performed By: #### C ANTONETTE ####[facility] [address] [place], [place] [address]Lw. Chrissy Frazier LYMPHM # 2.31 103/ul Normal 1.20-3.80 [facility] Comment on above: Performed By: #### Silverio WHITMAN ####[facility] [address] [place], [place] [address]Ty. Chrissy Frazier LYMPHM% 9.0 % Critically low 20.5-60.0 The [facility] Comment on above: Performed By: #### C ANTONETTE ####[facility] [address] [place] [phone]. Chrissy Frazier MCH 28.6 pg Normal 25.9-34.0 [facility] Comment on above: Performed By: #### Silverio WHITMAN ####[facility] [address] [place] [phone]. Chrissy Frazier MCHC 34.7 g/dl Normal 29.9-35.2 [facility] Comment on above: Performed By: #### Silverio WHITMAN ####[facility] [address] [place] [phone]. Chrissy Frazier MCV 82.4 fL Normal 80.0-94.0 [facility] Comment on above: Performed By: #### Silverio WHITMAN ####[facility] [address]ifllvb[address] [place] [phone]. Chrissy Frazier METAMYELOCYTE # Normal The [facility] Comment on above: Performed By: #### Silverio WHITMAN ####[facility] [address] [place] [phone]. Chrissy Frazier METAMYELOCYTE % Normal The [facility] Comment on above: Performed By: #### C ANTONETTE ####[facility] [address]qgcq[address] [place] [phone]. Chrissy Frazier MONOM# 3.85 103/ul Critically high 0.30-0.80 [facility] Comment on above: Performed By: #### Silverio WHITMAN ####[facility] [address] [place] [phone]. Chrissy Frazier MONOM% 15.0 % Critically high 1.7-12.0 The [facility] Comment on above: Performed By: #### C ANTONETTE ####[facility] [address] [place] [phone]. Chrissy Frazier MPV 10.6 fL Normal 9.5-13.5 [facility] Comment on above: Performed By: #### C ANTONETTE ####[facility] [address]pskyfij[address] [place] [phone]. Chrissy Frazier MYELOCYTE # Normal [facility] Comment on above: Performed By: #### C ANTONETTE ####[facility] [address] [place] [phone]. Chrissy Frazier MYELOCYTE % Normal [facility] Comment on above: Performed By: #### C ANTONETTE ####[facility] [address]ch[address] [place] [phone]. Chrissy Frazier NRBC Normal [facility] Comment on above: Performed By: #### C ANTONETTE ####[facility] Zvq[address]bme[address] [place] [phone]. Chrissy Frazier PLT 471 103/ul Critically high 150-450 The [facility] Comment on above: Performed By: #### C ANTONETTE ####[facility] [address]fuv[address]zk[address] [place] [phone]. Chrissy Frazier RBC 5.74 106/ul Normal 4.70-6.10 [facility] Comment on above: Performed By: #### C ANTONETTE ####[facility] [address] [place] [phone]. Chrissy Frazier RDW 13.7 % Normal 11.0-15.0 [facility] Comment on above: Performed By: #### C ANTONETTE ####[facility] [address]wm[address] [place] [phone]. Chrissy Frazier SEG # 19.53 103/ul Critically high 1.40-6.[address] [facility] Comment on above: Performed By: #### C ANTONETTE ####[facility] [address] [place] [address]Dr. Tishrowan Frazier SEG % 76.0 % Critically high 43.0-75.0 The [facility] Comment on above: Performed By: #### C BCMAN ####[facility] [address] [place] [address]Dr. Tishrowan Frazier TOXIC GRANULATION SLIGHT Normal The [facility] Comment on above: Result Comment: few vacoules Performed By: #### C BCLEANDRO ####[facility] [address] [place] [address]Dr. Chrissy Frazier WBC 25.7 103/ul Critically high 4.0-11.0 The [facility] Comment on above: Performed By: #### C ANTONETTE ####[facility] [address]qinpx[address] [place] [address]Dr. Chrissy Frazier LACTATE/LACTIC ACIDon 2021 Lactate [Moles/Vol] 2.4 mmol/L Critically high 0.4-1.9 [facility] Comment on above: Performed By: #### L ACT ####[facility] [address]igaf[address] [place] [address]Dr. Chrissy Frazier Lactate [Moles/Vol] 3.5 mmol/L Critically high 0.4-1.9 [facility] Comment on above: Performed By: #### L ACT ####[facility] [address]ryu[address] [place] [address]Dr. Chrissy Frazier LIPASEon 03-27-2022 Lipase [Catalytic activity/Vol] 43.0 U/L Critically low 73.0-393.0 [facility] Comment on above: Performed By: #### C MP, LIPA ####[facility] [address]ex[address] [place] [address]Dr. Chrissy Frazier PROF 14(COMP METB)on 022 Albumin [Mass/Vol] 4.7 g/dL Normal 3.4-5.0 [facility] Comment on above: Performed By: #### C MP, LIPA ####[facility] [address] [place] [address]Dr. Chrissy Frazier Albumin/Globulin [Mass ratio] 1.1 {ratio} Normal The [facility] Comment on above: Performed By: #### C MP, LIPA ####[facility] [address] [place] [address]Dr. Chrissy Frazier ALP [Catalytic activity/Vol] 69 U/L Normal 46-116 [facility] Comment on above: Performed By: #### C MP, LIPA ####[facility] [address]ynokyxg[address] [place] [address]Dr. Chrissy Frazier ALT [Catalytic activity/Vol] 47 U/L Normal 16-63 [facility] Comment on above: Performed By: #### C MP, LIPA ####[facility] [address] [place], [place] [address]Dr. Chrissy Freddie Anion gap [Moles/Vol] 23.2 mmol/L Normal [facility] Comment on above: Performed By: #### C MP, LIPA ####[facility] Yoegr[address]vtz[address] [place], [place] [address]Dr. Chrissy Freddie AST [Catalytic activity/Vol] 23 U/L Normal 15-37 [facility] Comment on above: Performed By: #### C MP, LIPA ####[facility] V[address] [place], [place] [address]Dr. Chrissy Freddie Bilirubin [Mass/Vol] 0.7 mg/dL Normal 0.2-1.0 [facility] Comment on above: Performed By: #### C MP, LIPA ####[facility] Qdlswkpgqu[address] [place], [place] [address]Dr. Chrissy Freddie Calcium [Mass/Vol] 9.2 mg/dL Normal 8.5-10.1 [facility] Comment on above: Performed By: #### C MP, LIPA ####[facility] [address] [place], [place] [address]Dr. Tishrowan Freddie Chloride [Moles/Vol] 97 mmol/L Critically low 98-107 [facility] Comment on above: Performed By: #### C MP, LIPA ####[facility] [address]ets[address]cf[address] [place], [place] [address]Dr. Yirowan Frazier CO2 [Moles/Vol] 18.2 mmol/L Critically low 21.0-32.0 [facility] Comment on above: Performed By: #### C MP, LIPA ####[facility] O[address]ys[address] [place] [address]Dr. Chrissy Frazier Creatinine [Mass/Vol] 1.77 mg/dL Critically high 0.70-1.30 [facility] Comment on above: Performed By: #### C MP, LIPA ####[facility] [address]vh[address] [place], [place] [address]Dr. Chrissy Frazier EGFR-AF MONEGASQUE 54 mL/min/1.73m2 Critically low >=60 [facility] Comment on above: Performed By: #### C MP, LIPA ####[facility] [address]wcwwaf[address] [place], [place] [address]Dr. Chrissy Frazier EGFR-NON AF MONEGASQUE 45 mL/min/1.73m2 Critically low >=60 [facility] Comment on above: Performed By: #### C MP, LIPA ####[facility] [address] [place], [place] [address]Dr. Chrissy Frazier Globulin (S) [Mass/Vol] 4.4 g/dL Normal [facility] Comment on above: Performed By: #### C MP, LIPA ####[facility] Aicwgtsazl[address] [place], [place] [address]Dr. Chrissy Frazier Glucose [Mass/Vol] 131 mg/dL Critically high 74-106 [facility] Comment on above: Performed By: #### C MP, LIPA ####[facility] Exeypobgsp[address] [place], [place] [address]Dr. Chrissy Frazier Potassium [Moles/Vol] 3.4 mmol/L Critically low 3.5-5.1 [facility] Comment on above: Performed By: #### C MP, LIPA ####[facility] [address] [place], [place] [address]Dr. Chrissy Frazier Protein [Mass/Vol] 9.1 g/dL Critically high 6.4-8.2 [facility] Comment on above: Performed By: #### C MP, LIPA ####[facility] [address] [place], [place] [address]Fr. Chrissy Frazier Sodium [Moles/Vol] 135 mmol/L Critically low 136-145 [facility] Comment on above: Performed By: #### C MP, LIPA ####[facility] [address] [place], [place] [address]Bk. Chrissy Frazier Urea nitrogen [Mass/Vol] 19.0 mg/dL Critically high 7.0-18.0 [facility] Comment on above: Performed By: #### C MANA, LIPA ####[facility] [address]tk[address] [place] [phone]. Chrissy Frazier Urea nitrogen/Creatinine [Mass ratio] 10.7 mg/mg Normal [facility] Comment on above: Performed By: #### C MANA, LIPA ####[facility] [address]tr[address]rf[address] [place] [phone]. Chrissy Frazier BMPon 11-03-2020 Anion gap [Moles/Vol] 14 mmol/L Normal 6-16 [facility] Comment on above: Performed By: #### 2 [id number], [id number], [id number] #### [facility] [address] [place] [address] Calcium [Mass/Vol] 9.0 mg/dL Normal 8.9-11.1 [facility] Comment on above: Performed By: #### 2 151570, [id number], [id number] #### [facility] [address] [place] [address] Chloride [Moles/Vol] 104 mmol/L Normal 101-111 [facility] Comment on above: Performed By: #### 2 410666, [id number], [id number] #### [facility] [address] [place] [address] CO2 [Moles/Vol] 21 mmol/L Normal 21-31 [facility] Comment on above: Performed By: #### 2 006348, 0664947, [id number] #### [facility] [address] [place] [address] Creatinine [Mass/Vol] 1.3 mg/dL Normal 0.5-1.3 [facility] Comment on above: Performed By: #### 2 195350, 1722632, [id number] #### [facility] [address] [place] [address] Glucose [Mass/Vol] 111 mg/dL Normal 55-199 [facility] Comment on above: Result Comment: If t his glucose result represents a fasting glucose, interpretation should refer to the following reference range: 55-99 mg/dL Performed By: #### 2 078531, [id number], [id number] #### [facility] [address] [place] [address] Potassium [Moles/Vol] 2.9 mmol/L Low 3.5-5.3 [facility] Comment on above: Performed By: #### 2 209030, 0315820, [id number] #### [facility] [address] [place] [address] Sodium [Moles/Vol] 136 mmol/L Normal 135-145 [facility] Comment on above: Performed By: #### 2 187353, 9231016, [id number] #### [facility] [address] [place] [address] Urea nitrogen [Mass/Vol] 14 mg/dL Normal 5-21 [facility] Comment on above: Performed By: #### 2 566342, 7737327, [id number] #### [facility] [address] [place] [address] Urea nitrogen/Creatinine [Mass ratio] 11 No Units Normal 10-20 [facility] Comment on above: Performed By: #### 2 829895, 5017162, [id number] #### [facility] [address] [place] [address] Lipase Levelon 11-03-2020 Lipase [Catalytic activity/Vol] 66 unit/L High 13-58 [facility] Comment on above: Performed By: #### 2 637064, 1996262, [id number] #### [facility] [address] [place] [address] Physician Orderon 11-03-2020 Physician Order [id number] 3#1.00CD:127 Normal [facility] eGFRon 11-03-2020 GFR/1.73 sq M predicted among blacks MDRD (S/P/Bld) [Vol rate/Area] mL/min/{1.73_m2} Normal >=59 [facility] Comment on above: Order Comment: Order added by Discern Expert. Result Comment: eGFR is race adjusted. AA=. Performed By: #### 2 044384, 4009804, [id number] #### [facility] [address] [place] [address] GFR/1.73 sq M predicted among non-blacks MDRD (S/P/Bld) [Vol rate/Area] mL/min/{1.73_m2} Normal >=59 [facility] Comment on above: Order Comment: Order added by Discern Expert. Result Comment: Tool Profiling Machine Set Up Operator lindsay kidney disease could be indicated at eGFR's of less than 60 mL/min/1.73m2. Kidney failure is indicated at less than 15 mL/min/1.73m2. Performed By: #### 2 664010, 2532536, [id number] #### [facility] [address] [place] [address] Encounters Encounter Date Encounter Type Care Provider Facility Start: 05-16-2024 End: 05-16-2024 ambulatory TUNG NORTHEIM Not Available Start: 03-07-2024 End: 03-07-2024 ambulatory TUNG NORTHEIM Not Available Start: 03-30-2023 ambulatory Luis Angel Muniz cility:[facility] Start: 01-03-2023 End: 01-04-[address] MELODY MARIO . Facility: Start: 01-03-2023 End: 01-04-2023 ambulatory RAQUEL BANKS Facility:[facility] Start: 12-29-2022 End: 12-30-[address] MELODY MARIO . Facility:[facility] Start: 12-13-2022 End: 12-14-2022 ambulatory [facility] Start: 11-24-2022 End: 11-24-2022 ambulatory [facility] Start: 11-16-2022 End: 11-17-[address] [...] Date Payer Category Payer Self-pay 1990 Unknown [id number] 01.06. [id number] 1990 Unknown [id number] 1990 Unknown [id number] 0.1.958320.3.579.2 1990 Unknown [id number] ..[id number] 0.1.493883.3.579.2593 1990 Unknown [id number] ..[id number] 0.1.329181.3.579.259 1990 Unknown [id number] 2.16.84 0.1.795143.3.579.2.593 1990 Unknown [id number] 2.16.84 0.1.739542.3.579.2.593 1990 Unknown [id number] 2.16.84 0.1.842048.3.579.2.593 1990 Unknown [id number] 2.16.84 0.1.235882.3.579.2.593 1990 Unknown [id number] 2.16.84 0.1.035262.3.579.2.593 1990 Unknown [id number] 2.16.84 0.1.249575.3.579.2.593 1990 Unknown [id number] 2.16.84 0.1.440437.3.579.2.593 1990 Unknown [id number] 2.16.84 0.1.906953.3.579.2.593 1990 Unknown [id number] 2.16.84 0.1.761890.3.579.2.1259 1990 Unknown [id number] 2.16.84 0.1.637818.3.579.2.1259 1959 Private Health Insurance [id number] Unknown [id number] 2.16.8 40.1.396210.3.579.2.531 Progress note 11-24-2022 Note Date & Type [...] report that his father had a fatal TN at the age of 54. Stress test [...] factor modification -Plan (more content not included)... [facility] Progress note 11-24-2022 Note Date & Type Note Facility 11-24-2022 Note New patient here to establish care. Ref from Dr. Mario for abnormal stress test. He says test was ordered for isolated episode of chest pain w/ SOB. RIAN is untreated. He does get lightheaded sometimes. Says he has CHS- cannabinoid hyperemesis syndrome. Review of Systems Cardiovascular: Positive for chest pain (1 episode w/ SOB). Respiratory: Positive for shortness of breath (1 episode w/ chest pain). Gastrointestinal: Positive for vomiting. Neurological: Positive for light-headedness. All other systems reviewed and are negative. [facility] Summary Purpose Family History No Family History [...] section and content) DATE CREATED AUTHOR 11/04/2020 [facility] DATE CREATED AUTHOR AUTHOR'S ORGANIZ ATION 01/08/2023 [facility] DATE CREATED AUTHOR AUTHOR'S ORGANIZ ATION 02/07/2023 [facility] DATE CREATED AUTHOR AUTHOR'S ORGANIZ ATION 04/01/2023 [facility] DATE CREATED AUTHOR AUTHOR'S ORGANIZ ATION 05/17/2024 [facility] FOR RECORDS PERTAINING TO PATIENTS WHO ARE [...] BE BASED ON THE PRIMARY CLINICAL RECORDS. [employer] provides no warranty or guarantee of the accuracy or completeness of information in this document.
[2024-07-15 17:26] VITALS: BP 121/68; PULSE 61; TEMP 36.9; O2SAT 95; BMI 37.3
--- NOTE | 2024-07-15 17:36 | P.HP_ITS ---
HPI H&P: HPI History of Present Illness Chief complaint: CHS, Cyclic Vomiting Narrative: Patient is a 34 year old white male with past medical history of bipolar disorder on Faison therapy who smokes marijuana to help with his anxiety. Periodically he gets vomiting from THC use. It appears he was in the ER twice in the last 24 hours, has received Dilaudid, Toradol, Zofran and Haldol. He still continues to feels nauseated. No fevers or chills, normal bowel movements. He is also not able to take his Faison when he vomits putting him at risk for manic episodes. He denies any sick contacts. last vomited several hours ago. He is resting comfortably in bed. ER findings of leukocytosis, elevated Cr at 1.66; He was admitted for cyclic vomiting and JCARLOS secondary to dehydration. Opioid HPI Opioid Management Most Recent Pain and Opioid Data: Last Pain Scale 10 07/15/24 17:03 Last Pain Assessment 07/15/24 17:26 Last MAR Pain Assessment 07/15/24 17:03 Last ORT Total Score 12 07/15/24 17:26 Last ORT Risk Category High Risk 07/15/24 17:26 Ur Phencyclidine Scrn Negative (NEGATIVE) 11/24/23 23:03 Review of Systems ROS Narrative ROS: a complete review of systems were reviewed with patient and are positive as below or listed in History of Chief Complaint. General: no fever, chills, night sweats Head: no headache, trauma, visual changes, nausea or vomiting Skin: no reported rashes, itching or sores Eyes: no blurriness of vision Ears: no reported hearing loss, vertigo, earache, or tinnitus Throat: no sore throat, hoarseness, swelling of neck, or tongue pain Heart: no chest pain Lungs: no shortness of breath or cough GI: no diarrhea but vomiting/nausea Urinary: no urinary urgency, frequency or pain Neuro: no numbness or tingling HEM: no bleeding issues or bruising ENDO: no thyroid problems Psych:bipolar disorder [facility] Medical History (Updated 07/15/24 @ 17:44 by Cassandra Cyr DO) Bipolar disorder (manic depression) ?F31.9 - Bipolar disorder, unspecified (ICD-10) Acquired deformity of right foot ?M21.961 - Unspecified acquired deformity of right lower leg (ICD-10) Displaced fracture of navicular [scaphoid] of right foot, sequela ?S92.251S - Displaced fracture of navicular [scaphoid] of right foot, sequela (ICD-10) Sprain of tarsometatarsal ligament of right foot ?S93.621A - Sprain of tarsometatarsal ligament of right foot, initial encounter (ICD-10) Post-traumatic osteoarthritis, right ankle and foot ?M19.171 - Post-traumatic osteoarthritis, right ankle and foot (ICD-10) Hemangioma ?D18.00 - Hemangioma unspecified site (ICD-10) Ulnar nerve entrapment ?G56.20 - Lesion of ulnar nerve, unspecified upper limb (ICD-10) Bronchitis ?J40 - Bronchitis, not specified as acute or chronic (ICD-10) Foot pain ?M79.673 - Pain in unspecified foot (ICD-10) Esophagitis ?K20.90 - Esophagitis, unspecified without bleeding (ICD-10) Cyclical vomiting ?R11.15 - Cyclical vomiting syndrome unrelated to migraine (ICD-10) Sciatica ?M54.30 - Sciatica, unspecified side (ICD-10) Insomnia ?G47.00 - Insomnia, unspecified (ICD-10) PTSD (post-traumatic stress disorder) ?F43.10 - Post-traumatic stress disorder, unspecified (ICD-10) Panic attacks ?F41.0 - Panic disorder [episodic paroxysmal anxiety] (ICD-10) Depression ?F32.A - Depression, unspecified (ICD-10) Anxiety ?F41.9 - Anxiety disorder, unspecified (ICD-10) Electronic cigarette use ?Z78.9 - Other specified health status (ICD-10) COVID-19 ?U07.1 - COVID-19 (ICD-10) Sleep apnea ?G47.30 - Sleep apnea, unspecified (ICD-10) GERD (gastroesophageal reflux disease) ?K21.9 - Gastro-esophageal reflux disease without esophagitis (ICD-10) Prediabetes ?R73.03 - Prediabetes (ICD-10) Abdominal pain ?R10.9 - Unspecified abdominal pain (ICD-10) Nausea & vomiting ?R11.2 - Nausea with vomiting, unspecified (ICD-10) Surgical History H/O shoulder surgery ?Z98.890 - Other specified postprocedural states (ICD-10) H/O colonoscopy ?Z98.890 - Other specified postprocedural states (ICD-10) History of esophagogastroduodenoscopy (EGD) ?Z98.890 - Other specified postprocedural states (ICD-10) S/P cubital tunnel release ?Z98.890 - Other specified postprocedural states (ICD-10) History of surgical removal of skin lesion ?Z98.890 - Other specified postprocedural states (ICD-10) ?Z87.2 - Personal history of diseases of the skin and subcutaneous tissue (ICD-10) Family History Other Family history of diabetes mellitus Family history of heart disease Family history of hypertension Family history of myocardial infarction Social History Within the past year, how often did you have a drink containing alcohol: never Score interpretation: A score less than 4 is consistent with normal alcohol consumption. Smoking status: Current some day smoker Do you use any of these nicotine containing products: vaping products Non-prescribed substance use: cannabis (any form) Previous occupational history: [employer] Highest level of school completed/degree received: high school graduate Are you now , , , , never or living with a partner: In a typical week, how many times do you talk on the telephone with family, friends, or neighbors: 3 or more times per week How often do you get together with friends or relatives: 3 or more times per week How often do you attend roman catholic or episcopalian services: never Do you belong to any clubs or organizations such as roman catholic groups unions, fraternal or athletic groups, or school groups: no Total score: 2 Score interpretation: A score of greater than or equal to 2 indicates the lowest level of social isolation. Little interest or pleasure in doing things: several days Feeling down, depressed, or hopeless: more than half the days Feel stressed/tense/nervous/anxious/difficulty sleeping: to some extent Meds Home Medications and Allergies Home Medications ?Medication ?Instructions ?Recorded ?Confirmed ?Type clonidine HCl 0.1 mg tablet 0.2 mg PO BID 11/17/23 07/15/24 History hydroxyzine pamoate 25 mg capsule 25 mg PO QID PRN anxiety 11/17/23 07/15/24 History lithium carbonate 300 mg capsule 300 mg PO BEDTIME 11/17/23 07/15/24 History propranolol 80 mg tablet 80 mg PO DAILY 11/17/23 07/15/24 History multivitamin (Daily Multi-Vitamin 1 tab PO DAILY 03/09/24 07/15/24 History tablet) Allergies Allergy/AdvReac Type Severity Reaction Status Date / Time Penicillins Allergy Severe Unknown Verified 03/09/24 11:19 clarithromycin [From Biaxin] Allergy Unknown Verified 03/09/24 11:19 sulfamethoxazole Allergy unknown Verified 03/09/24 11:19 [From Bactrim] trimethoprim [From Bactrim] Allergy unknown Verified 03/09/24 11:19 Exam Narrative Exam Narrative: General: Patient is alert, and oriented to person, place and time with normal affect, proper hygiene Skin: no visible rashes, or ulcers Head: atraumatic, acephalic Eyes: PERRLA, no nystagmus present, conjunctiva clear, no scleral icterus Ears: normal gross auditory acuity Nose: symmetric, no discharge, no maxillary or frontal sinus tenderness Mouth/Throat: no erythema, exudate, or tonsillar enlargement, normal dentition Neck: no masses palpated, normal thyroid, no JVD or audible carotid bruits Heart: Normal rate and rhythm, no murmurs/rubs/gallops Lungs: no audible wheezes, crackles and normal breath sounds all lung taylor Abdomen: Normal audible bowel sounds, no distension, No palpable masses, no organomegaly, no rebound/guarding/ or rigidity Musculoskeletal: no swelling bilateral lower extremities Neuro: CN II-X grossly intact Constitutional Vital Signs, click to edit/add: Last Vital Signs Temp 98.5 F 07/15/24 17:26 Pulse 61 07/15/24 17:26 Resp 18 07/15/24 17:26 BP 121/68 07/15/24 17:26 Pulse Ox 95 07/15/24 17:26 O2 Del Method Room Air 07/15/24 17:26 Results Labs Labs: Short CBC 07/15/24 Range/Units 17:00 WBC 20.0 H (4.0-11.0) 10^3/uL Hgb 15.5 (14.0-18.0) g/dL Hct 44.6 (42.0-54.0) % Plt Count 477 H (150-450) 10^3/uL Assessment and Plan Assessment and Plan (1) Cyclical vomiting: Assessment and Plan: given halodol in the ER, will continue with PRN zofran and Phenergan as needed. Check Urine drug screen and Urinalysis. Leukocytosis but normal liver enzymes. Will also check Faison level, magnesium and TSH. (2) JCARLOS (acute kidney injury): Assessment and Plan: cr 1.66 this is above his baseline <1.0. most likely secondary to dehydration. start LR @125. Recheck in the morning (3) Dehydration: Assessment and Plan: causing transient rise in WBC's and Creatinine. (4) Bipolar disorder (manic depression): Assessment and Plan: continue home medications. Qualifiers: Active/Remission status: remission status unspecified Qualified Code(s): F31.9 - Bipolar disorder, unspecified Plan patient is full code observation status tonight, IVF and PRN antiemetics
[2024-07-15] MEDS: LACTATED RINGER'S SOLUTION 1,000 ML 125 ML IV (17:55)
[2024-07-15 19:42] VITALS: BP 115/66; PULSE 69; TEMP 36.5; O2SAT 94
[2024-07-15] MEDS: CLONIDINE HCL 0.1 MG TABLET 0.2 MG PO (21:19)
[2024-07-15] MEDS: LITHIUM CARBONATE 150 MG CAPSULE 300 MG PO (21:19)
[2024-07-15] MEDS: HEPARIN SODIUM (PORCINE) 5,000 UNIT/ML VIAL 5000 UNIT SUBQ (21:19)
[2024-07-16] VITALS: BP 100/57; PULSE 53; TEMP 36.8; O2SAT 95
[2024-07-16] MEDS: LACTATED RINGER'S SOLUTION 1,000 ML 125 ML IV (02:04)
[2024-07-16 04:00] VITALS: BP 117/64; PULSE 79; TEMP 36.6; O2SAT 98
[2024-07-16 06:11] LABS: Basophils Absolute Auto 0.1 10^3/uL (0.0-0.1); Basophils Percent Auto 0.3 % (0.2-2.0); Eosinophils Absolute Auto 0.1 10^3/uL (0.0-0.7); Eosinophils Percent Auto 0.8 % (0.9-7.0); Hematocrit 40.9 % (42.0-54.0); Hemoglobin 13.6 g/dL (14.0-18.0); Immature Granulocytes Abs Auto 0.05 10^3/uL (0.00-0.03); Immature Granulocytes Pct Auto 0.3 % (0.0-0.5); Lymphocytes Absolute Auto 4.9 10^3/uL (1.2-3.8); Lymphocytes Percent Auto 31.5 % (20.5-60.0); Mean Corpuscular HGB Conc 33.3 g/dL (29.9-35.2); Mean Corpuscular Hemoglobin 28.2 pg (25.9-34.0); Mean Corpuscular Volume 84.9 fL (80.0-94.0); Mean Platelet Volume 10.6 fL (9.5-13.5); Monocytes Absolute Auto 0.9 10^3/uL (0.3-0.8); Neutrophils Absolute Auto 9.5 10^3/uL (1.4-6.5); Neutrophils Percent Auto 61.1 % (43.0-75.0); Platelet Count 312 10^3/uL (150-450); Red Blood Count 4.82 10^6/uL (4.70-6.10); Red Cell Distribution Width 14.1 % (11.0-15.0); White Blood Count 15.5 10^3/uL (4.0-11.0)
[2024-07-16 06:50] LABS: Alanine Aminotransferase 38 U/L (16-63); Albumin Globulin Ratio 1.2; Albumin Level 3.6 g/dL (3.4-5.0); Alkaline Phosphatase 78 U/L (46-116); Anion Gap 13.8; Aspartate Amino Transferase 24 U/L (15-37); BUN Creatinine Ratio 9.3; Bilirubin Total 0.6 mg/dL (0.2-1.0); Calcium 8.9 mg/dL (8.5-10.1); Carbon Dioxide 24.8 mmol/L (21.0-32.0); Chloride 106 mmol/L (98-107); Estimated GFR (African America >60 (>=60); Estimated GFR (Non-African Ame >60 (>=60); Glucose 103 mg/dL (74-106); Potassium 3.6 mmol/L (3.5-5.1); Sodium 141 mmol/L (136-145); Thyroid Stimulating Hormone 0.418 uIU/mL (0.358-3.740); Total Protein 6.6 g/dL (6.4-8.2)
[2024-07-16 08:00] VITALS: BP 131/72; PULSE 55; TEMP 36.7; O2SAT 98
--- NOTE | 2024-07-16 08:14 | P.DS_ITS ---
DS: Providers Provider Date of admission: 07/15/24 17:16 Primary care physician: Janes Mario MD DS: Diagnosis Discharge Diagnosis (1) Cyclical vomiting: (2) JCARLOS (acute kidney injury): (3) Dehydration: (4) Bipolar disorder (manic depression): Qualifiers: Active/Remission status: remission status unspecified Qualified Code(s): F31.9 - Bipolar disorder, unspecified Plan Additional diagnoses: Thrombocythemia-likely this is secondary to demargination from the cyclic vomiting syndrome. Will follow as an outpatient Leukocytosis-improved today, this is likely related to the [id number] as an outpatient Iron deficiency anemia-follow as an outpatient DS: Summary Hospital Course Hospital Course: Patient with recurrence of his cyclic vomiting syndrome. [place] level also low on admission. He was given IV hydration overnight. Pain is much improved but persisting today. At this point he wants to try eating. The plan is if he can tolerate breakfast and lunch she can be discharged home in improving condition. Medications see list. Follow-up with me in the office later this week. Status at Discharge Overall status at discharge: patient is back to baseline Time Spent with Patient Time attestation: Total time spent providing and/or coordinating discharge services: Time spent: less than 30 minutes Exam Constitutional Vital Signs, click to edit/add: Last Vital Signs Temp 97.8 F 07/16/24 04:00 Pulse 79 07/16/24 04:00 Resp 20 07/16/24 04:00 BP 117/64 07/16/24 04:00 Pulse Ox 98 07/16/24 04:00 O2 Del Method Room Air 07/16/24 04:00 Documenting provider has reviewed patient's vital signs: yes Common normals: no apparent distress Chest Common normals: inspection of chest normal Respiratory Common normals: normal respiratory effort GI Common normals: Normal to inspection, nondistended, normoactive bowel sounds present, soft to palpation and non-tender DS: Data Data Completed and Pending Labs on day of discharge: Labs from last 24 hours 07/16/24 07/15/24 05:52 17:00 WBC 15.5 H 20.0 H RBC 4.82 5.40 Hgb 13.6 L 15.5 Hct 40.9 L 44.6 MCV 84.9 82.6 MCH 28.2 28.7 MCHC 33.3 34.8 RDW 14.1 13.8 Plt Count 312 477 H MPV 10.6 10.8 Neut % (Auto) 61.1 80.5 H Lymph % (Auto) 31.5 14.0 L Sharp % (Auto) 6.0 4.8 Eos % (Auto) 0.8 L 0.0 L Baso % (Auto) 0.3 0.2 Neut # (Auto) 9.5 H 16.1 H Lymph # (Auto) 4.9 H 2.8 Sharp # (Auto) 0.9 H 1.0 H Eos # (Auto) 0.1 0.0 Baso # (Auto) 0.1 0.0 Abs Immat Gran (auto) 0.05 H 0.09 H Imm/Tot Granulo (auto) 0.3 0.5 Sodium 141 Potassium 3.6 Chloride 106 Carbon Dioxide 24.8 Anion Gap 13.8 BUN 10.0 Creatinine 1.08 Est GFR ( Amer) >60 Est GFR (Non-Af Amer) >60 BUN/Creatinine Ratio 9.3 Glucose 103 Calcium 8.9 Magnesium 2.0 Total Bilirubin 0.6 AST 24 ALT 38 Alkaline Phosphatase 78 Total Protein 6.6 Albumin 3.6 Globulin 3.0 Albumin/Globulin Ratio 1.2 TSH 0.418 Discharge Plan Discharge Disposition: Home, Self-Care Discharge Medications: Continued clonidine HCl 0.1 mg tablet 0.2 mg PO BID hydroxyzine pamoate 25 mg capsule 25 mg PO QID PRN (Reason: anxiety) lithium carbonate 300 mg capsule 300 mg PO BEDTIME propranolol 80 mg tablet 80 mg PO DAILY multivitamin [Daily Multi-Vitamin] Tablet 1 tab PO DAILY No Action ibuprofen 800 mg tablet 800 mg PO Q8H PRN (Reason: pain) Activity: resume usual activities as tolerated Diet: advance to your usual diet Print Language: Syriac Patient Instructions: Dehydration (GEN), Cyclic Vomiting Syndrome (ED) Forms: Portal Instructions Follow Up Appointments: Dr Shelbi Chamorro Jul 25 1:15 pm. [phone] Discharge Date/Time: 07/16/24 12:49
[2024-07-16] MEDS: HEPARIN SODIUM (PORCINE) 5,000 UNIT/ML VIAL 5000 UNIT SUBQ (08:55)
[2024-07-16] MEDS: PROPRANOLOL HCL 20 MG TABLET 80 MG PO (08:55)
[2024-07-16] MEDS: CLONIDINE HCL 0.1 MG TABLET 0.2 MG PO (08:55)
[2024-07-17 05:12] LABS: Lithium (Eskalith(R)), Serum 0.1 mmol/L (0.5-1.2)
== END 2024-07-16 12:49 | disposition home or self-care (01) ==
LOC: ER 17:10 → MS 17:21
PROVIDERS: Admitting Provider Family Medicine; Emergency Provider Emergency Medicine Emergency Medical Services; PCP Family Medicine; Visit Provider Family Medicine
DX: R11.15 Cyclical vomiting syndrome unrelated to migraine (principal); N17.9 Acute kidney failure, unspecified; D75.839 Thrombocytosis, unspecified; D50.9 Iron deficiency anemia, unspecified; D72.829 Elevated white blood cell count, unspecified; F12.90 Cannabis use, unspecified, uncomplicated; E86.0 Dehydration; F31.9 Bipolar disorder, unspecified; Z79.899 Other long term (current) drug therapy; F17.200 Nicotine dependence, unspecified, uncomplicated
CPT/HCPCS: 36415; 80053; 80178; 80307; 83690; 83735; 84443; 85025; 96361; 96372; 96374; 96375; 96376; 99284; 99285; G0378; J1170; J1630; J1644; J1885; J2405

== ENCOUNTER 2024-07-17 04:16 | Observation (INO) | payer OTHER, SELFPAY ==
[2024-07-17] VITALS (9 sets, daily range): BP systolic 113–175; BP diastolic 64–94; PULSE 48–83; TEMP 36.5–36.9; O2SAT 95–99; BMI 39.5; BMI 37.6
--- NOTE | 2024-07-17 04:40 | ECG_ITS ---
[facility] Test Date: 2024-07-17 Pat Name: PAULINA CHARLES Department: Room: - Gender: Male [employer]: : 1990 Requested By: MELODY PHELPS Order Number: [id number] Reading MD: MELODY PHELPS Measurements Intervals [place] Rate: 54 P: -[id number] IA: -[id number] QRS: 88 QRSD: 110 T: 22 QT: 464 QTc: 450 Interpretive Statements SINUS RHYTHM Electronically Signed On 07-18-2024 7:57:53 EDT by MELODY PHELPS
--- NOTE | 2024-07-17 04:41 | ED_ITS ---
HPI - Abdominal Pain General Chief Complaint: Abdominal Pain Stated Complaint: ABD PAIN Time Seen by Provider: 07/17/24 04:23 Source: patient Mode of arrival: walk-in Limitations: no limitations History of Present Illness HPI narrative: This 34-year-old male with a history of CHS, cannabinoid hyperemesis syndrome, presents for evaluation of recurrent nausea vomiting with abdominal cramps and diarrhea. He has been seen here several times recently and admitted overnight. He states he was feeling better and went home and then earlier this evening he ate and started becoming sick again. He states he has had 4 episodes of vomiting and 4 episodes of diarrhea this evening. He denies that he has been using marijuana recently and stating that the last time he used marijuana was 1 week ago. He requests Zofran, Reglan and Dilaudid. It appears that he had good results in the recent past with Haldol. The patient states he has had plenty of CAT scans. He thinks his diarrhea is from the sausage breakfast that Dr. Mario told him to eat yesterday. Related Data Home Medications ?Medication ?Instructions ?Recorded ?Confirmed clonidine HCl 0.1 mg tablet 0.2 mg PO BID 11/17/23 07/17/24 hydroxyzine pamoate 25 mg capsule 25 mg PO QID PRN anxiety 11/17/23 07/17/24 lithium carbonate 300 mg capsule 300 mg PO BEDTIME 11/17/23 07/17/24 propranolol 80 mg tablet 80 mg PO DAILY 11/17/23 07/17/24 multivitamin (Daily Multi-Vitamin 1 tab PO DAILY 03/09/24 07/17/24 tablet) ibuprofen 800 mg tablet 800 mg PO Q8H PRN pain 07/16/24 07/17/24 Allergies Allergy/AdvReac Type Severity Reaction Status Date / Time Penicillins Allergy Severe Unknown Verified 07/17/24 04:19 clarithromycin [From Biaxin] Allergy Unknown Verified 07/17/24 04:19 sulfamethoxazole Allergy unknown Verified 07/17/24 04:19 [From Bactrim] trimethoprim [From Bactrim] Allergy unknown Verified 07/17/24 04:19 Review of Systems ROS Status of ROS 10 or more systems reviewed and unremark able except as noted in history and below [facility] Medical History (Updated 07/17/24 @ 06:49 by Marylou Pearson MD) Bipolar disorder (manic depression) ?F31.9 - Bipolar disorder, unspecified (ICD-10) Acquired deformity of right foot ?M21.961 - Unspecified acquired deformity of right lower leg (ICD-10) Displaced fracture of navicular [scaphoid] of right foot, sequela ?S92.251S - Displaced fracture of navicular [scaphoid] of right foot, sequela (ICD-10) Sprain of tarsometatarsal ligament of right foot ?S93.621A - Sprain of tarsometatarsal ligament of right foot, initial encounter (ICD-10) Post-traumatic osteoarthritis, right ankle and foot ?M19.171 - Post-traumatic osteoarthritis, right ankle and foot (ICD-10) Hemangioma ?D18.00 - Hemangioma unspecified site (ICD-10) Ulnar nerve entrapment ?G56.20 - Lesion of ulnar nerve, unspecified upper limb (ICD-10) Bronchitis ?J40 - Bronchitis, not specified as acute or chronic (ICD-10) Foot pain ?M79.673 - Pain in unspecified foot (ICD-10) Esophagitis ?K20.90 - Esophagitis, unspecified without bleeding (ICD-10) Cyclical vomiting ?R11.15 - Cyclical vomiting syndrome unrelated to migraine (ICD-10) Sciatica ?M54.30 - Sciatica, unspecified side (ICD-10) Insomnia ?G47.00 - Insomnia, unspecified (ICD-10) PTSD (post-traumatic stress disorder) ?F43.10 - Post-traumatic stress disorder, unspecified (ICD-10) Panic attacks ?F41.0 - Panic disorder [episodic paroxysmal anxiety] (ICD-10) Depression ?F32.A - Depression, unspecified (ICD-10) Anxiety ?F41.9 - Anxiety disorder, unspecified (ICD-10) Electronic cigarette use ?Z78.9 - Other specified health status (ICD-10) COVID-19 ?U07.1 - COVID-19 (ICD-10) Sleep apnea ?G47.30 - Sleep apnea, unspecified (ICD-10) GERD (gastroesophageal reflux disease) ?K21.9 - Gastro-esophageal reflux disease without esophagitis (ICD-10) Prediabetes ?R73.03 - Prediabetes (ICD-10) Abdominal pain ?R10.9 - Unspecified abdominal pain (ICD-10) Nausea & vomiting ?R11.2 - Nausea with vomiting, unspecified (ICD-10) Surgical History H/O shoulder surgery ?Z98.890 - Other specified postprocedural states (ICD-10) H/O colonoscopy ?Z98.890 - Other specified postprocedural states (ICD-10) History of esophagogastroduodenoscopy (EGD) ?Z98.890 - Other specified postprocedural states (ICD-10) S/P cubital tunnel release ?Z98.890 - Other specified postprocedural states (ICD-10) History of surgical removal of skin lesion ?Z98.890 - Other specified postprocedural states (ICD-10) ?Z87.2 - Personal history of diseases of the skin and subcutaneous tissue (ICD-10) Family History Other Family history of diabetes mellitus Family history of heart disease Family history of hypertension Family history of myocardial infarction Social History Within the past year, how often did you have a drink containing alcohol: never Score interpretation: A score less than 4 is consistent with normal alcohol consumption. Smoking status: Current some day smoker Do you use any of these nicotine containing products: vaping products Non-prescribed substance use: cannabis (any form) Previous occupational history: [employer] Highest level of school completed/degree received: high school graduate Are you now , , , , never or living with a partner: In a typical week, how many times do you talk on the telephone with family, friends, or neighbors: 3 or more times per week How often do you get together with friends or relatives: 3 or more times per week How often do you attend orthodox or mandaen services: never Do you belong to any clubs or organizations such as orthodox groups unions, fraternal or athletic groups, or school groups: no Total score: 2 Score interpretation: A score of greater than or equal to 2 indicates the lowest level of social isolation. Little interest or pleasure in doing things: several days Feeling down, depressed, or hopeless: more than half the days Feel stressed/tense/nervous/anxious/difficulty sleeping: to some extent Exam Narrative Exam Narrative: Vital signs and Nursing Notes reviewed: Patient is afebrile with normal pulse, blood pressure is elevated 156/94, he is not hypoxic with pulse ox of 97% on room air General: Awake, alert, oriented, pale, diaphoretic, anxious, no respiratory distress, no active vomiting HEENT: Normocephalic atraumatic, mucous membranes are moist and pink, eyes are clear, normal conjunctiva, vision is grossly intact, posterior pharynx is normal in appearance. No scleral icterus Chest: Lungs are clear to auscultation with good air entry, there is no wheezing rhonchi or rales appreciated no accessory muscle use, patient is speaking in complete sentences-no chest wall tenderness to palpation CVS: Regular rate and rhythm S1-S2, no murmurs rubs or gallops, pulses are brisk and equal bilaterally ABD: Obese, soft, nondistended, hyperactive bowel sounds, no reproducible tenderness in the right lower quadrant, right upper quadrant epigastrium or left upper quadrant Extremities: Moving all extremities, no lower extremity tenderness or swelling noted, negative Homans' sign, pulses are brisk and equal bilaterally Skin: Pale, diaphoretic, no skin rash noted Neuro: No focal deficits Constitutional Vital Signs, click to edit/add: Last Vital Signs Temp 97.7 F 07/17/24 04:20 Pulse 48 L 07/17/24 05:54 Resp 18 07/17/24 05:54 BP 157/88 H 07/17/24 05:54 Pulse Ox 99 07/17/24 05:54 O2 Del Method Room Air 07/17/24 05:54 Course Vital Signs Vital signs: Vital Signs Temperature 97.7 F 07/17/24 04:20 Pulse Rate 60 07/17/24 04:20 Respiratory Rate 20 07/17/24 04:20 Blood Pressure 156/94 H 07/17/24 04:20 Pulse Oximetry 97 07/17/24 04:20 Oxygen Delivery Method Room Air 07/17/24 04:20 Temperature 97.7 F 07/17/24 04:20 Pulse Rate 48 L 07/17/24 05:54 Respiratory Rate 18 07/17/24 05:54 Blood Pressure 157/88 H 07/17/24 05:54 Pulse Oximetry 99 07/17/24 05:54 Oxygen Delivery Method Room Air 07/17/24 05:54 MDM - Abdominal Pain MDM Narrative Medical decision making narrative: This 34-year-old male who states he has cannabinoid hyperemesis syndrome due to marijuana use but has not used it in the past week and was recently admitted to this facility for recurrent nausea vomiting and abdominal pain presents for reevaluation of the same symptoms. He was discharged from this facility yesterday. He was encouraged to eat a normal diet and was able to be discharged home. He states that later in the day he started having recurrence of his nausea vomiting and abdominal pain. He request Zofran, Reglan and Dilaudid. I explained to him the Dilaudid is not part of the treatment for cannabinoid hyperemesis syndrome despite his multiple request for the medication. He was medicated with IV fluids, IM Haldol Zofran and then Bentyl. He is yelling out in pain and rocking back and forth on the bed but not actively vomiting. I explained to him that his symptoms including diarrhea now may be related to opiate withdrawal as he had several doses of Dilaudid while in the emergency department and while admitted. I explained I will not administer Dilaudid to him. He has not had a CT scan in an extended period of time although he states he has had many CT scans I could not find a record at this facility for a CT scan of his abdomen pelvis since 07/02/2022. In light of his markedly elevated white count and recurrence of nausea vomiting abdominal pain and diarrhea a CT scan was ordered. His white count today is 16.6. During his recent admission it was as high as 20 and as low as 15.5. Electrolytes appear to have normalized somewhat and his BUN and creatinine have improved after being admitted for IV hydration. His Lactic acid is minimally elevated at 2.1. Troponin is normal at 6.9. An EKG was ordered due to the fact that I wish to administer Haldol to him and wanted to check the QT interval. His EKG is an undetermined rhythm with differentiate P waves at 54 bpm. No acute changes were noted. CT scan of the abdomen pelvis shows fluid in the stomach, small bowel and colon consistent with the patient's history, consistent with enteritis. After CT scan he started dry heaving again and was given additional IV fluids and Phenergan. I did discuss the case with Dr. Mario. He is aware that the patient is in the emergency department and may end up needing to be readmitted but at this time he is hemodynamically stable with a normal CAT scan and improving labs. Medical Records Attestation: I reviewed the patient's medical records. Medical records narrative: [place] [address] CT Scan Report Signed Patient: PAULINA CHARLES MR#: [id number] : 1990 Acct:[id number] Age/Sex: 34 / M ADM Date: 07/17/24 Loc: ER Attending Dr: Ordering Physician: Marylou Pearson Date of Service: 07/17/24 Procedure(s): CT abdomen pelvis w con Accession Number(s): [id number] cc: Janes Mario M.D.~ [facility] [place] [address] Patient Name: PAULINA CHARLES MRN: [id number] date: 1990 Sex: M Assigned Patient Location: ER Current Patient Location: ER Accession/Order Number: [id number] Exam Date: 07/17/2024 05:35 Report Date: 07/17/2024 06:10 At the request of: MARYLOU BRAIN Procedure: CT abdomen pelvis w con EXAMINATION: CT abdomen pelvis w con HISTORY: abd pain , N/V/D COMPARISON: CT abdomen pelvis 07/02/2022 TECHNIQUE: Axial, Coronal, and Sagittal images were obtained without and/or with IV contrast as indicated by examination type. Dose reduction techniques were achieved by using automated exposure control and/or adjustment of mA and/or kV according to patient size and/or use of iterative reconstruction technique. FINDINGS: LUNG BASES: No visible pulmonary or pleural disease. LIVER: No enlargement, atrophy, suspicious density, or significant focal lesion. BILIARY: No dilatation or calcification. PANCREAS: No lesion, fluid collection, or abnormal duct dilatation. SPLEEN: No enlargement or focal lesion. ADRENALS: No mass or enlargement. KIDNEYS: No mass, obstruction, or calcification. BOWEL/MESENTERY: Fluid-filled stomach and proximal loops of small bowel without appreciable obstruction or suspicious wall thickening. Scattered fluid levels within the colon. No visible mass, obstruction, or bowel wall thickening. Normal appendix. AORTA/VASCULAR: No aneurysm or dissection. RETROPERITONEUM: No mass or adenopathy. LYMPH NODES: No adenopathy. URINARY BLADDER: No visible focal wall thickening, lesion, or calculus. PELVIC ORGANS: No visible mass. Pelvic organs appropriate for patient age. ABDOMINAL WALL: No mass or hernia. BONES: No bony lesion or fracture. OTHER: Negative. CT/CT abdomen pelvis w con IMPRESSION: 1. Fluid within stomach, small bowel, and colon compatible with patient history. Possible enteritis. No obstruction or significant inflammatory changes. 2. Otherwise unremarkable abdomen and pelvis. Electronically authenticated by: KYREE DOHERTY Date: 07/17/2024 06:10 Lab Data Labs: Lab Results 07/17/24 Range/Units 04:28 WBC 16.1 H (4.0-11.0) 10^3/uL RBC 5.31 (4.70-6.10) 10^6/uL Hgb 15.1 (14.0-18.0) g/dL Hct 44.2 (42.0-54.0) % MCV 83.2 (80.0-94.0) fL MCH 28.4 (25.9-34.0) pg MCHC 34.2 (29.9-35.2) g/dL RDW 13.6 (11.0-15.0) % Plt Count 463 H (150-450) 10^3/uL MPV 10.6 (9.5-13.5) fL Neut % (Auto) 59.5 (43.0-75.0) % Lymph % (Auto) 31.9 (20.5-60.0) % [place] % (Auto) 5.7 (1.7-12.0) % Eos % (Auto) 2.1 (0.9-7.0) % Baso % (Auto) 0.5 (0.2-2.0) % Neut # (Auto) 9.6 H (1.4-6.5) 10^3/uL Lymph # (Auto) 5.1 H (1.2-3.8) 10^3/uL [place] # (Auto) 0.9 H (0.3-0.8) 10^3/uL Eos # (Auto) 0.3 (0.0-0.7) 10^3/uL Baso # (Auto) 0.1 (0.0-0.1) 10^3/uL Abs Immat Gran (auto) 0.05 H (0.00-0.03) 10^3/uL Imm/Tot Granulo (auto) 0.3 (0.0-0.5) % Sodium 140 (136-145) mmol/L Potassium 3.2 L (3.5-5.1) mmol/L Chloride 101 (98-107) mmol/L Carbon Dioxide 20.3 L (21.0-32.0) mmol/L Anion Gap 21.9 BUN 12.0 (7.0-18.0) mg/dL Creatinine 1.35 H (0.70-1.30) mg/dL Est GFR ( Amer) >60 (>=60) Est GFR (Non-Af Amer) >60 (>=60) BUN/Creatinine Ratio 8.9 Glucose 132 H (74-106) mg/dL Lactate 2.1 H (0.4-2.0) mmol/L Calcium 8.9 (8.5-10.1) mg/dL Total Bilirubin 0.6 (0.2-1.0) mg/dL AST 18 (15-37) U/L ALT 38 (16-63) U/L Alkaline Phosphatase 97 (46-116) U/L Troponin I High Sens 6.9 (4.0-76.1) pg/mL Total Protein 7.8 (6.4-8.2) g/dL Albumin 4.1 (3.4-5.0) g/dL Globulin 3.7 g/dL Albumin/Globulin Ratio 1.1 Lipase 87.0 H (16.0-77.0) U/L ECG Data Attestation: I personally reviewed and interpreted this ECG as follows: (Undetermined rhythm at 54 bpm with different shaped P waves throughout the EKG incomplete right bundle branch block, normal axis, no acute ST segment elevation or T wave inversion, OH interval is undetermined, QRS duration is 110 ms QT 464 ms, QTc 450 ms) Discharge Plan Discharge Chief Complaint: Abdominal Pain Clinical Impression: Cannabinoid hyperemesis syndrome Patient Disposition: Still a Patient Prescriptions / Home Meds: No Action clonidine HCl 0.1 mg tablet 0.2 mg PO BID hydroxyzine pamoate 25 mg capsule 25 mg PO QID PRN (Reason: anxiety) lithium carbonate 300 mg capsule 300 mg PO BEDTIME propranolol 80 mg tablet 80 mg PO DAILY multivitamin [Daily Multi-Vitamin] Tablet 1 tab PO DAILY ibuprofen 800 mg tablet 800 mg PO Q8H PRN (Reason: pain) Print Language: Cymro Referrals: Janes Mario MD [Primary Care Provider] - 1 week
[2024-07-17 04:46] LABS: Basophils Absolute Auto 0.1 10^3/uL (0.0-0.1); Basophils Percent Auto 0.5 % (0.2-2.0); Eosinophils Absolute Auto 0.3 10^3/uL (0.0-0.7); Eosinophils Percent Auto 2.1 % (0.9-7.0); Hematocrit 44.2 % (42.0-54.0); Hemoglobin 15.1 g/dL (14.0-18.0); Immature Granulocytes Abs Auto 0.05 10^3/uL (0.00-0.03); Immature Granulocytes Pct Auto 0.3 % (0.0-0.5); Lymphocytes Absolute Auto 5.1 10^3/uL (1.2-3.8); Lymphocytes Percent Auto 31.9 % (20.5-60.0); Mean Corpuscular HGB Conc 34.2 g/dL (29.9-35.2); Mean Corpuscular Hemoglobin 28.4 pg (25.9-34.0); Mean Corpuscular Volume 83.2 fL (80.0-94.0); Mean Platelet Volume 10.6 fL (9.5-13.5); Monocytes Absolute Auto 0.9 10^3/uL (0.3-0.8); Monocytes Percent Auto 5.7 % (1.7-12.0); Neutrophils Absolute Auto 9.6 10^3/uL (1.4-6.5); Neutrophils Percent Auto 59.5 % (43.0-75.0); Platelet Count 463 10^3/uL (150-450); Red Blood Count 5.31 10^6/uL (4.70-6.10); Red Cell Distribution Width 13.6 % (11.0-15.0); White Blood Count 16.1 10^3/uL (4.0-11.0)
--- OUTSIDE RECORDS SUMMARY | 2024-07-17 04:48 | XMS_ITS | CCD ---
Author Organization [facility] CliniSyil Care Team Providers Care Parts Interpreter Name Role Phone RAQUEL BANKS Referring Unavailable [...] to adverse reactions to drug (disorder) 09-28-20 [facility] Repository (1 source) Sulfamethoxazole / Trimethoprim; Translations: [SULFAMETHOXAZOLE-TR IMETHOPRIM] Drug Allergy 01-27-20 [facility] Repository (1 source) Clarithromycin Drug Allergy [facility] Repository (1 source) Sulfamethoxazole / Trimethoprim Drug Allergy 05-27-20 17 [facility] Repository (1 source) Sulfamethoxazole Drug Allergy 03-20-20 [facility] Repository (1 source) Trimethoprim Drug Allergy 03-20-20 [facility] Repository Problems Active Problems Problem Classification [...] 11-16-2022 Epis[facility] Other aftercare (1 source) Other long term care phlebotomist (current) drug therapy; Translations: [OTH CARE HOME CURRENT DRUG THERAPY] Onset: 02-07-2023 Episodic Other [...] IGG ABS 0.09 Index Value Normal 0.00-0.79 [facility] Comment on above: Result Comment: Nega tive <0.80 Equivocal 0.80 - 0.89 Positive >0.89 Performed By: #### H PYLLC ####[facility] [address] [place] [address]Dr. Chrissy Frazier AMYLASEon 01-04-2023 Amylase [Catalytic activity/Vol] 34 U/L Normal 25-115 [facility] Comment on above: Performed By: #### A MY ####[facility] V[address]wntuujf[address] [place], [place] [address]Dr. Chrissy Freddie CBC AUTO DIFFon 01-04-2023 BASO # 0.0 103/ul Normal 0.0-0.1 [facility] Comment on above: Performed By: #### C BC ####[facility] Tfkgtioema[address] [place], [place] [address]Dr. Chrissy Frazier Basophils/100 WBC (Bld) 0.1 % Critically low 0.2-2.0 [facility] Comment on above: Performed By: #### C BC ####[facility] Yrpqebitnb[address] [place], [place] [address]Dr. Tishrowan Frazier EO # 0.0 103/ul Normal 0.0-0.7 [facility] Comment on above: Performed By: #### C BC ####[facility] Wxehwleypw[address] [place], [place] [address]Dr. Chrissy Frazier Eosinophils/100 WBC (Bld) 0.1 % Critically low 0.9-7.0 [facility] Comment on above: Performed By: #### C BC ####[facility] Woctunzogj[address] [place], [place] [address]DrNancy Frazier Erythrocyte distribution width (RBC) [Ratio] 14.0 % Normal 11.0-15.0 [facility] Comment on above: Performed By: #### C BC ####[facility] Cwvgtutenu[address] [place], [place] [address]Dr. Chrissy Frazier Hematocrit (Bld) [Volume fraction] 40.4 % Critically low 42.0-54.0 [facility] Comment on above: Performed By: #### C BC ####[facility] Lqmdcauzfj[address] [place] [address]Dr. Chrissy Frazier Hemoglobin (Bld) [Mass/Vol] 13.8 g/dL Critically low 14.0-18.0 [facility] Comment on above: Performed By: #### C BC ####[facility] [address]wsp[address] [place] [address]Dr. Chrissy Freddie IG # 0.05 10e3/ul Critically high 0.00-0.03 [facility] Comment on above: Performed By: #### C BC ####[facility] Vnjlpfugkq[address] [place] [address]Dr. Tishrowan Frazier IG % 0.3 % Normal 0.0-0.5 [facility] Comment on above: Performed By: #### C BC ####[facility] Nkhniemlys[address] [place], [place] [address]Dr. Chirssy Frazier LYMPH # 1.7 103/ul Normal 1.2-3.8 [facility] Comment on above: Performed By: #### C BC ####[facility] Cofxycndai[address] [place] [address]Dr. Chrissy Freddie Lymphocytes/100 WBC (Bld) 11.9 % Critically low 20.5-60.0 [facility] Comment on above: Performed By: #### C BC ####[facility] Z[address]ops[address] [place] [address]Dr. Chrissy Frazier MANUAL DIFF REQ NO Normal [facility] Comment on above: Performed By: #### C BC ####[facility] Vvxfalhhjn[address] [place] [phone]. Chrissy Freddie MCH (RBC) [Entitic mass] 29.3 pg Normal 25.9-34.0 [facility] Comment on above: Performed By: #### C BC ####[facility] [address]uugy[address] [place] [phone]. Tishrowan Frazier MCHC (RBC) [Mass/Vol] 34.2 g/dL Normal 29.9-35.2 [facility] Comment on above: Performed By: #### C BC ####[facility] Azgznfkkbn[address] [place] [phone]. Chrissy Frazier MCV (RBC) [Entitic vol] 85.8 fL Normal 80.0-94.0 [facility] Comment on above: Performed By: #### C BC ####[facility] Lt[address]opvxf[address] [place] [phone]. Chrissy Freddie MONO # 0.6 103/ul Normal 0.3-0.8 [facility] Comment on above: Performed By: #### C BC ####[facility] Qczlcrgybu73[address] [place] [address]Dr. Chrissy Freddie Monocytes/100 WBC (Bld) 4.2 % Normal 1.7-12.0 [facility] Comment on above: Performed By: #### C BC ####[facility] Oymeetuvyy[address] [place], [place] [address]Dr. Chrissy Frazier NEUT # 12.0 103/ul Critically high 1.4-6.5 [facility] Comment on above: Performed By: #### C BC ####[facility] Fisbpdatic[address] [place], [place] [id number]. Tishrowan Frazier Neutrophils/100 WBC (Bld) 83.4 % Critically high 43.0-75.0 The [facility] Comment on above: Performed By: #### C BC ####[facility] Lvheqhclwk[address] [place], [place] [address]Dr. Chrissy Freddie Platelet mean volume (Bld) [Entitic vol] 10.4 fL Normal 9.5-13.5 [facility] Comment on above: Performed By: #### C BC ####[facility] Dmfotrbhqg[address] [place], [place] [id number]. Chrissy Frazier PLT 313 103/ul Normal 150-450 [facility] Comment on above: Performed By: #### C BC ####[facility] Jrqmglpkgc[address] [place] [phone]. Chrissy Frazier RBC 4.71 106/ul Normal 4.70-6.10 [facility] Comment on above: Performed By: #### C BC ####[facility] Ad[address]wvjldb[address] [place] [phone]. Chrissy Frazier WBC 14.4 103/ul Critically high 4.0-11.0 [facility] Comment on above: Performed By: #### C BC ####[facility] Rajpuiuzmv[address] [place] [phone]. Chrissy Frazier CULTURE URINEon 01-04-2023 CULTURE URINE Culture Observations: NO GROWTH. Normal The [facility] Comment on above: Performed By: #### U RCX ####[facility] Ynkxmropnq[address] [place] [address]Dr. Chrissy Frazier DRUG SCREEN RAPID (URINE)on 01-04-2023 AMP Negative Normal NEGATIVE The [facility] Comment on above: Performed By: #### D REYES, UAMIC ####[facility] Ymvhecdzlh[address] [place] [address]Dr. Chrissy Frazier BAR Negative Normal NEGATIVE The [facility] Comment on above: Performed By: #### D REYES, UAMIC ####[facility] Eoygeqwovg[address] [place] [address]Dr. Chrissy Frazier BUP Negative Normal NEGATIVE The [facility] Comment on above: Performed By: #### D CHAYAD, UAMIC ####[facility] S[address]qrfblgi[address] [place] [address]Dr. Chrissy Frazier BZO Positive Abnormal NEGATIVE The [facility] Comment on above: Performed By: #### D REYES, UAMIC ####[facility] Kjrxpdjqyr[address] [place] [address]Dr. Chrissy Frazier LAUREN Negative Normal NEGATIVE The [facility] Comment on above: Performed By: #### D REYES, UAMIC ####[facility] Zaugeajrgd[address] [place] [address]Dr. Chrissy Frazier CUT-OFFS SEE BELOW Normal The [facility] Comment on above: Result Comment: AMP (Amphetamine): 500ng/mL, BAR (Barbituates): 200 ng/mL, BZO (Benzodiazepines): 150 ng/mL, BUP (Buprenorphine): 10 ng/mL, LAUREN (Cocaine): 150 ng/mL, mAMP (Methamphetamine): 500 ng/mL, MTD (Methadone): 200 ng/mL, OPI (Opiates): 100 ng/mL, OXY (Oxycodone): 100 ng/mL, PCP (Phencyclidine): 25 ng/mL, PPX (Propoxyphene): 300 ng/mL, THC (Cannabinoids): 50 ng/mL, TCA (Trycyclic Antidepressants): 300 ng/mL Performed By: #### Amelie CHAMBERS, UAMIC ####[facility] Uskemsaqll38[address] [place], [place] [address]Dr[address] [facility] DRUG CUT HEADER DRUG CLASS TEST SYSTEM CUT-OFF CONCENTRATIONS ARE FOLLOWS: Normal The [facility] Comment on above: Performed By: #### Amelie CHAMBERS UAMIC ####[facility] Svikapqezq[address] [place], [place] [address]Dr. Chrissy [facility] mAMP Negative Normal NEGATIVE The [facility] Comment on above: Performed By: #### Amelie CHAMBERS UAMIC ####[facility] Bsqfntyeys01[address] [place], [place] [address]Dr. [facility] MTD Negative Normal NEGATIVE [facility] Comment on above: Performed By: #### Amelie CHAMBERS, UAMIC ####[facility] Vymbninroy[address] [place], [place] [address]Dr[address] [facility] OPI Negative Normal NEGATIVE The [facility] Comment on above: Performed By: #### Amelie CHAMBERS, UAMIC ####[facility] Vwwvaulnel[address] [place], [place] [address]Dr[address] [facility] OXY Negative Normal NEGATIVE The [facility] Comment on above: Performed By: #### Amelie CHAMBERS, UAMIC ####[facility] Usasghugon[address] [place], [place] [address]Dr[address] [facility] PCP Negative Normal NEGATIVE The [facility] Comment on above: Performed By: #### Amelie CHAMBERS, UAMIC ####[facility] Lvnhytlgcw05[address] [place], [place] [address]Dr[address] [facility] PPX Negative Normal NEGATIVE The [facility] Comment on above: Performed By: #### D REYES UAMIC ####[facility] Qfuojxgtsh[address] [place] [address]Dr. Chrissy Frazier TCA Positive Abnormal NEGATIVE [facility] Comment on above: Performed By: #### D REYES UAMIC ####[facility] Vkxnadypyt8[address] [place] [address]Dr. Chrissy Frazier THC Positive Abnormal NEGATIVE The [facility] Comment on above: Performed By: #### D REYES UAMIC ####[facility] Hvjccsixlm[address] [place] [address]Dr. Chrissy Frazier LIPASEon 01-04-2023 Lipase [Catalytic activity/Vol] 57.0 U/L Critically low 73.0-393.0 [facility] Comment on above: Performed By: #### L IPA ####[facility] Lhnlpholrw[address] [place], [place] [address]Dr. Chrissy Frazier PROF 14(COMP METB)on 023 Albumin [Mass/Vol] 3.6 g/dL Normal 3.4-5.0 [facility] Comment on above: Performed By: #### C MP ####[facility] Akmjuqgrjh416[address] [place], [place] [address]Dr. Chrissy Frazier Albumin/Globulin [Mass ratio] 1.0 {ratio} Normal [facility] Comment on above: Performed By: #### C MP ####[facility] Zuydhhjlra[address] [place], [place] [address]Dr. Chrissy Frazier ALP [Catalytic activity/Vol] 67 U/L Normal 46-116 The [facility] Comment on above: Performed By: #### C MP ####[facility] Aealqoglyj916[address] [place], [place] [address]Dr. Chrissy Frazier ALT [Catalytic activity/Vol] 26 U/L Normal 16-63 [facility] Comment on above: Performed By: #### C MP ####[facility] Lblgvygvvg[address] [place] [address]Dr. Chrissy Frazier Anion gap [Moles/Vol] 16.3 mmol/L Normal [facility] Comment on above: Performed By: #### C MP ####[facility] Mizxpaevot[address] [place] [phone]. Chrissy Frazier AST [Catalytic activity/Vol] 17 U/L Normal 15-37 [facility] Comment on above: Performed By: #### C MP ####[facility] Tzmqpuuwge5[address] [place] [phone]. Chrissy Frazier Bilirubin [Mass/Vol] 0.4 mg/dL Normal 0.2-1.0 [facility] Comment on above: Performed By: #### C MP ####[facility] Enpaosicwt[address] [place], [place] [address]Dr. Chrissy Frazier Calcium [Mass/Vol] 8.7 mg/dL Normal 8.5-10.1 [facility] Comment on above: Performed By: #### C MP ####[facility] Xssggljtug[address] [place], [place] [address]Dr. Chrissy Frazier Chloride [Moles/Vol] 106 mmol/L Normal 98-107 [facility] Comment on above: Performed By: #### C MP ####[facility] Sunqvuunzj020[address] [place], [place] [address]Dr. Chrissy Frazier CO2 [Moles/Vol] 22.6 mmol/L Normal 21.0-32.0 [facility] Comment on above: Performed By: #### C MP ####[facility] Rxutyzwpwd716[address] [place], [place] [address]Dr. Chrissy Frazier Creatinine [Mass/Vol] 0.99 mg/dL Normal 0.70-1.30 [facility] Comment on above: Performed By: #### C MP ####[facility] Fmugjmtjbj[address] [place] [phone]. Chrissy Frazier EGFR-AF SLOVAK >60 Normal >=60 [facility] Comment on above: Performed By: #### C MP ####[facility] Ymwmenirap[address] [place] [address]Dr. Chrissy Frazier EGFR-NON AF [place]OVAK >60 Normal >=60 [facility] Comment on above: Performed By: #### C MP ####[facility] Htzoawtfhq04[address] [place] [address]Dr. Chrissy Frazier Globulin (S) [Mass/Vol] 3.6 g/dL Normal [facility] Comment on above: Performed By: #### C MP ####[facility] Hnvmnantff8504 [place] [address]Dr. Chrissy Frazier Glucose [Mass/Vol] 138 mg/dL Critically high 74-106 T [facility] Comment on above: Performed By: #### C MP ####[facility] Lgeszbqgjw4[address] [place] [address]Dr. Chrissy Frazier Potassium [Moles/Vol] 3.9 mmol/L Normal 3.5-5.1 [facility] Comment on above: Performed By: #### C MP ####[facility] Vhqvsadbbp204[address] [place], [place] [address]Dr. Chrissy Frazier Protein [Mass/Vol] 7.2 g/dL Normal 6.4-8.2 [facility] Comment on above: Performed By: #### C MP ####[facility] Bmkayzrzfn[address] [place], [place] [address]Dr. Chrissy Frazier Sodium [Moles/Vol] 141 mmol/L Normal 136-145 [facility] Comment on above: Performed By: #### C MP ####[facility] Jlodmfhqqs118[address] [place], [place] [address]Dr. Chrissy Frazier Urea nitrogen [Mass/Vol] 10.0 mg/dL Normal 7.0-18.0 The [facility] Comment on above: Performed By: #### C MP ####[facility] Qeeerpxgdk[address] [place], [place] [address]Dr. Chrissy Frazier Urea nitrogen/Creatinine [Mass ratio] 10.1 mg/mg Normal The [facility] Comment on above: Performed By: #### C MP ####[facility] J[address]uyiwpcv[address] [place], [place] [address]Dr. Chrissy Frazier UA RANDOM W/MICROSCOPICon BACTERIA TRACE Abnormal NONE SEEN The [facility] Comment on above: Performed By: #### D REYES, UAMIC ####[facility] Opgytgrkdv[address] [place] [address]Dr. Chrissy Frazier Bilirubin Ql (U) Negative Normal NEGATIVE [facility] Comment on above: Performed By: #### Amelie CHAMBERS, UAMIC ####[facility] Hcqozjbjfb[address] [place], [place] [address]Dr. Chrissy Frazier CAST NONE SEEN Normal NONE SEEN The [facility] Comment on above: Performed By: #### Amelie CHAMBERS, UAMIC ####[facility] K[address]rjcbjq[address] [place], [place] [address]Dr. Chrissy Frazier Clarity (U) CLEAR Normal CLEAR The [facility] Comment on above: Performed By: #### Amelie CHAMBERS, UAMIC ####[facility] Jiurhmbzjn58[address] [place], [place] [address]Dr. Chrissy Frazier Color (U) YELLOW Normal YELLOW The [facility] Comment on above: Performed By: #### Amelie CHAMBERS, UAMIC ####[facility] Foqapbpdqg[address] [place], [place] [address]Dr. Chrissy Frazier Crystals LM Nom (Urine sed) NONE SEEN Normal NONE SEEN The [facility] Comment on above: Performed By: #### Amelie CHAMBERS, UAMIC ####[facility] Dhnomwzccf376[address] [place], [place] [address]Dr. Chrissy Frazier Epithelial cells LM Ql (Urine sed) NONE SEEN Normal NONE SEEN /RARE The [facility] Comment on above: Performed By: #### Amelie CHAMBERS, UAMIC ####[facility] Owctemhdnv[address] [place], [place] [address]Dr. Chrissy Frazier Glucose Ql (U) Negative Normal NEGATIVE [facility] Comment on above: Performed By: #### D REYES, UAMIC ####[facility] Gtwbvkaqzr9[address] [place], [place] [address]Dr. Chrissy Frazier Hemoglobin Ql (U) Negative Normal NEGATIVE [facility] Comment on above: Performed By: #### Amelie CHAMBERS, UAMIC ####[facility] Docgyqgeyp75[address] [place], [place] [address]Dr. Chrissy Frazier Ketones Ql (U) 15 mg/dl Abnormal NEGATIVE [facility] Comment on above: Performed By: #### Amelie CHAMBERS UAMIC ####[facility] Kybsmwunav[address] [place] [address]Dr. Chrissy Frazier LEUKOCYTES Negative Normal NEGATIVE The [facility] Comment on above: Performed By: #### Amelie CHAMBERS UAMIC ####[facility] Mrlzsqxkkc9043 [place] [address]Dr. Chrissy Frazier MUCOUS NONE SEEN Normal NONE SEEN The [facility] Comment on above: Performed By: #### Amelie CHAMBERS UAMIC ####[facility] Mlfciohchr68[address] [place] [address]Dr. Chrissy Frazier Nitrite Ql (U) Negative Normal NEGATIVE [facility] Comment on above: Performed By: #### Amelie CHAMBERS UAMIC ####[facility] Glspghpiyf6794 [place] [address]Dr. Chrissy Frazier pH (U) 6.5 [pH] Normal 5-9 The [facility] Comment on above: Performed By: #### Amelie CHAMBERS UAMIC ####[facility] Rfndownrlt[address] [place], [place] [address]Dr. Chrissy Frazier RBC NONE SEEN Abnormal 0-2 The [facility] Comment on above: Performed By: #### Amelie CHAMBERS UAMIC ####[facility] Saienzgmij[address] [place], [place] [address]Dr. Chrissy Frazier SPEC GRAVITY 1.020 Normal 1.005-<=1.025 [facility] Comment on above: Performed By: #### Amelie CHAMBERS UAMIC ####[facility] Sequzulsir[address] [place], [place] [address]Dr. Chrissy Frazier UA PROTEIN Negative Normal NEGATIVE/ TRACE [facility] Comment on above: Performed By: #### Amelie CHAMBERS UAMIC ####[facility] Qkhhqgmgjb[address] [place], [place] [address]Dr. Chrissy Frazier Urobilinogen Qn (U) 0.2 {Estrellita'U}/dL Normal 0.2 - 1. 0 The [facility] Comment on above: Performed By: #### Amelie CHAMBERS UAMIC ####[facility] Cxasbgjwbr[address] [place] [phone]. Chrissy Frazier WBC NONE SEEN Normal NONE SEEN The [facility] Comment on above: Performed By: #### D REYES UAMIC ####[facility] Kvshqgrdox[address] [place] [phone]. Chrissy Frazier AMMONIAon 01-03-2023 Ammonia (P) [Moles/Vol] 17 umol/L Normal 11-32 The [facility] Comment on above: Performed By: #### A MM ####[facility] Q[address]msungth[address] [place] [address]Dr. Chrissy Frazier AMYLASEon 01-03-2023 Amylase [Catalytic activity/Vol] 38 U/L Normal 25-115 The [facility] Comment on above: Performed By: #### L IPA, TERRENCE, CMP, MG ####[facility] Nhkntfnwaz[address] [place] [address]Dr. Chrissy Frazier CBC AUTO DIFFon 01-03-2023 BASO # 0.1 103/ul Normal 0.0-0.1 [facility] Comment on above: Performed By: #### C BC ####[facility] Gvnjfwfikg[address] [place] [address]Dr. Chrissy Frazier Basophils/100 WBC (Bld) 0.4 % Normal 0.2-2.0 [facility] Comment on above: Performed By: #### C BC ####[facility] Myolqbyxwa[address] [place] [address]Dr. Chrissy Frazier EO # 0.1 103/ul Normal 0.0-0.7 [facility] Comment on above: Performed By: #### C BC ####[facility] Okjktmdbdg[address] [place] [address]Dr. Chrissy Frazier Eosinophils/100 WBC (Bld) 0.3 % Critically low 0.9-7.0 The [facility] Comment on above: Performed By: #### C BC ####[facility] Yicmeztuoj[address] [place] [address]Dr. Chrissy Frazier Erythrocyte distribution width (RBC) [Ratio] 13.7 % Normal 11.0-15.0 [facility] Comment on above: Performed By: #### C BC ####[facility] Llaadsaxnj[address] [place] [address]Dr. Tishrowan Freddie Hematocrit (Bld) [Volume fraction] 46.1 % Normal 42.0-54.0 [facility] Comment on above: Performed By: #### C BC ####[facility] Obiuwmfkvf[address] [place] [address]Dr. Chrissy Frazier Hemoglobin (Bld) [Mass/Vol] 15.4 g/dL Normal 14.0-18.0 [facility] Comment on above: Performed By: #### C BC ####[facility] [address] [place], [place] [address]Dr. Chrissy Frazier IG # 0.11 10e3/ul Critically high 0.00-0.03 [facility] Comment on above: Performed By: #### C BC ####[facility] Msihljndzs[address] [place], [place] [address]Dr. Chrissy Frazier IG % 0.6 % Critically high 0.0-0.5 [facility] Comment on above: Performed By: #### C BC ####[facility] Pkixmwycnk[address] [place], [place] [address]Dr. Chrissy Frazier LYMPH # 2.5 103/ul Normal 1.2-3.8 The [facility] Comment on above: Performed By: #### C BC ####[facility] E[address]ubqgbtkq[address] [place], [place] [address]DrNancy Frazier Lymphocytes/100 WBC (Bld) 13.9 % Critically low 20.5-60.0 The [facility] Comment on above: Performed By: #### C BC ####[facility] Lnpodsifvz[address] [place], [place] [address]DrNancy Frazier MANUAL DIFF REQ NO Normal [facility] Comment on above: Performed By: #### C BC ####[facility] Hejenyqbbg24[address] [place] [address]Dr. Chrissy Frazier MCH (RBC) [Entitic mass] 28.6 pg Normal 25.9-34.0 The [facility] Comment on above: Performed By: #### C BC ####[facility] Tomiecnixa[address] [place] [address]Dr. Chrissy Frazier MCHC (RBC) [Mass/Vol] 33.4 g/dL Normal 29.9-35.2 The [facility] Comment on above: Performed By: #### C BC ####[facility] Spmmyduofz9[address] [place] [address]Dr. Chrissy Frazier MCV (RBC) [Entitic vol] 85.7 fL Normal 80.0-94.0 The [facility] Comment on above: Performed By: #### C BC ####[facility] Ojjiaeyarw[address] [place], [place] [address]DrNancy Frazier MONO # 0.7 103/ul Normal 0.3-0.8 The [facility] Comment on above: Performed By: #### C BC ####[facility] Ogualzrvbb[address] [place], [place] [address]Dr. Chrissy Frazier Monocytes/100 WBC (Bld) 4.0 % Normal 1.7-12.0 The [facility] Comment on above: Performed By: #### C BC ####[facility] Rmpgkjdpez[address] [place], [place] [address]DrNancy Frazier NEUT # 14.3 103/ul Critically high 1.4-6.5 [facility] Comment on above: Performed By: #### C BC ####[facility] Vvzdqkrlnu[address] [place], [place] [address]Dr. Chrissy Frazier Neutrophils/100 WBC (Bld) 80.8 % Critically high 43.0-75.0 The [facility] Comment on above: Performed By: #### C BC ####[facility] Jfrfbyrmiu[address] [place], [place] [address]DrNancy Frazier Platelet mean volume (Bld) [Entitic vol] 10.4 fL Normal 9.5-13.5 The [facility] Comment on above: Performed By: #### C BC ####[facility] Dooiwxpudb[address] [place], [place] [address]Dr. Chrissy Frazier PLT 437 103/ul Normal 150-450 The [facility] Comment on above: Performed By: #### C BC ####[facility] Rzmkvctdpf45[address] [place] [address]Dr. Chrissy Frazier RBC 5.38 106/ul Normal 4.70-6.10 The [facility] Comment on above: Performed By: #### C BC ####[facility] Iyjpuriyvq3[address] [place] [address]Dr. Chrissy Frazier WBC 17.7 103/ul Critically high 4.0-11.0 [facility] Comment on above: Performed By: #### C BC ####[facility] Ozdlfadxxj50[address] [place] [address]Dr. Chrissy Frazier CULTURE BLOODon 01-03-2023 Microscopic examination of blood, culture Culture Observations: NO GROWTH AT 5 DAYS. Normal The [facility] Comment on above: Performed By: #### B LDCX1 ####[facility] Elgiwtalcw[address] [place], [place] [address]Dr. Chrissy Frazier Performed By: #### B LDCX2 ####[facility] Pdvaueobvw380[address] [place] [address]Dr. Chrissy Frazier ECHOCARDIO M/2D COMPLETEon 0 01-03-2023 ECHOCARDIO M/2D COMPLETE Normal The [facility] LACTATE/LACTIC ACIDon 2022 Lactate [Moles/Vol] 2.7 mmol/L Critically high 0.4-1.9 The [facility] Comment on above: Performed By: #### L ACT ####[facility] Oavnberiil[address] [place] [address]Dr. Chrissy Frazier Lactate [Moles/Vol] 6.3 mmol/L Critically high 0.4-1.9 The [facility] Comment on above: Performed By: #### L ACT ####[facility] [address]izkauzsv[address] [place] [address]Dr. Chrissy Frazier LIPASEon 01-03-2023 Lipase [Catalytic activity/Vol] 74.0 U/L Normal 73.0-393.0 The [facility] Comment on above: Performed By: #### L IPA, TERRENCE, CMP, MG ####[facility] Sotagjcqkj[address] [place] [address]Dr. Chrissy Frazier MAGNESIUMon 01-03-2023 Magnesium [Mass/Vol] 1.6 mg/dL Critically low 1.8-2.4 [facility] Comment on above: Performed By: #### L IPA, TERRENCE, CMP, MG ####[facility] Ojzkfxxwvw[address] [place] [address]Dr. Chrissy Frazier PROF 14(COMP METB)on 023 Albumin [Mass/Vol] 4.3 g/dL Normal 3.4-5.0 [facility] Comment on above: Performed By: #### L IPA, TERRENCE, CMP, MG ####[facility] Zheaeuiwow[address] [place] [address]Dr. Chrissy Frazier Albumin/Globulin [Mass ratio] 1.1 {ratio} Normal [facility] Comment on above: Performed By: #### L IPA, TERRENCE, CMP, MG ####[facility] Hsmelgnfde[address] [place] [address]Dr. Chrissy Frazier ALP [Catalytic activity/Vol] 87 U/L Normal 46-116 [facility] Comment on above: Performed By: #### L IPA, TERRENCE, CMP, MG ####[facility] Kdkiygwqpz16[address] [place] [address]Dr. Chrissy Frazier ALT [Catalytic activity/Vol] 32 U/L Normal 16-63 [facility] Comment on above: Performed By: #### L IPA, TERRENCE, CMP, MG ####[facility] Fzzmmoplav1837 [place] [address]Dr. Chrissy Frazier Anion gap [Moles/Vol] 24.0 mmol/L Normal [facility] Comment on above: Performed By: #### L IPA, TERRENCE, CMP, MG ####[facility] Snwapcyutd6[address] [place] [address]Dr. Chrissy Frazier AST [Catalytic activity/Vol] 22 U/L Normal 15-37 [facility] Comment on above: Performed By: #### L IPA, TERRENCE, CMP, MG ####[facility] Yaikcbnjis15[address] [place] [address]Dr. Chrissy Frazier Bilirubin [Mass/Vol] 0.6 mg/dL Normal 0.2-1.0 [facility] Comment on above: Performed By: #### L IPA, TERRENCE, CMP, MG ####[facility] Zvasknryzm[address] [place] [address]Dr. Chrissy Frazier Calcium [Mass/Vol] 9.6 mg/dL Normal 8.5-10.1 [facility] Comment on above: Performed By: #### L IPA, TERRENCE, CMP, MG ####[facility] Etmebijlch[address] [place] [address]Dr. Chrissy Frazier Chloride [Moles/Vol] 103 mmol/L Normal 98-107 The [facility] Comment on above: Performed By: #### L IPA, TERRENCE, CMP, MG ####[facility] Vpruitjqjw[address] [place], [place] [address]Dr. Chrissy Frazier CO2 [Moles/Vol] 16.7 mmol/L Critically low 21.0-32.0 [facility] Comment on above: Performed By: #### L IPA, TERRENCE, CMP, MG ####[facility] Nepbnshwly[address] [place], [place] [address]Dr. Chrissy Frazier Creatinine [Mass/Vol] 1.42 mg/dL Critically high 0.70-1.30 [facility] Comment on above: Performed By: #### L IPA, TERRENCE, CMP, MG ####[facility] Hffdixkpmo32[address] [place] [address]Dr. Chrissy Frazier EGFR-AF SLOVAK >60 Normal >=60 [facility] Comment on above: Performed By: #### L IPA, TERRENCE, CMP, MG ####[facility] [address]zzpv[address] [place], [place] [address]Dr. Chrissy Frazier EGFR-NON AF SLOVAK 58 mL/min/1.73m2 Critically low >=60 The [facility] Comment on above: Performed By: #### L IPA, TERRENCE, CMP, MG ####[facility] Yvevakjlfr[address] [place] [address]Dr. Chrissy Frazier Globulin (S) [Mass/Vol] 4.0 g/dL Normal [facility] Comment on above: Performed By: #### L IPA, TERRENCE, CMP, MG ####[facility] Shnpgmxehl[address] [place] [address]Dr. Chrissy Frazier Glucose [Mass/Vol] 149 mg/dL Critically high 74-106 [facility] Comment on above: Performed By: #### L IPA, TERRENCE, CMP, MG ####[facility] Pvvgashfps4[address] [place] [address]Dr. Chrissy Frazier Potassium [Moles/Vol] 3.7 mmol/L Normal 3.5-5.1 [facility] Comment on above: Performed By: #### L IPA, TERRENCE, CMP, MG ####[facility] Jcdywziusw9[address] [place] [address]Dr. Chrissy Frazier Protein [Mass/Vol] 8.3 g/dL Critically high 6.4-8.2 [facility] Comment on above: Performed By: #### L IPA, TERRENCE, CMP, MG ####[facility] Vyrplffhew[address] [place] [address]Dr. Chrissy Frazier Sodium [Moles/Vol] 140 mmol/L Normal 136-145 [facility] Comment on above: Performed By: #### L IPA, TERRENCE, CMP, MG ####[facility] Aqvncpbzlr7278 [place] [address]Dr. Chrissy Frazier Urea nitrogen [Mass/Vol] 16.0 mg/dL Normal 7.0-18.0 [facility] Comment on above: Performed By: #### L IPA, TERRENCE, CMP, MG ####[facility] Vvlxasvctk12[address] [place] [address]Dr. Chrissy Frazier Urea nitrogen/Creatinine [Mass ratio] 11.3 mg/mg Normal [facility] Comment on above: Performed By: #### L IPA, TERRENCE, CMP, MG ####[facility] Nxamtkswqb[address] [place] [address]Dr. Chrissy Frazier SED RATE [facility] 2022 SED RATE 37 mm/hr Critically high <=15 [facility] Comment on above: Performed By: #### S EDR ####[facility] [address]mjh[address] [place], [place] [address]Vy. Chrissy Frazier XR ABD FLAT UP_PA Enoch 01-03 XR ABD FLAT UP_PA CH Normal The [facility] CT HEART CORONARY ANGIOGRAMo n 12-13-2022 CT [...] CT examination Electronically signed: Maikel Chappell. Normal [facility] Office Visiton 11-24-2022 Follow-up visit [id number] Paulina Montero 1990 M Date Provider Department Center 11/24/2022 3848-RAQUEL BANKS MANE [facility] Family History Problem Relation Age of Onset Coronary artery disease Father Heart attack Father 54 Family Status - Relation Status Age at Father Level of Service:41748 [place] OFFICE/OUTPATIENT NEW MODERATE MDM 45-59 MINUTES Reason for Visit and Comments: abnormal stress test [Other] Normal [facility] CARDIAC STRESS TESTon 2021 CARDIAC STRESS TEST Normal [facility] AMYLASEon 10-24-2022 Amylase [Catalytic activity/Vol] 26 U/L Normal 25-115 [facility] Comment on above: Performed By: #### C MP, LIPA, TERRENCE ####[facility] Ugglmawvzl[address] [place], [place] [address]RlNancy Chrissy Frazier CBC AUTO DIFFon 10-24-2022 BASO # 0.0 103/ul Normal 0.0-0.1 [facility] Comment on above: Performed By: #### C BC ####[facility] Fhyivdurfk[address] [place] [id number]. Chrissy Frazier Basophils/100 WBC (Bld) 0.2 % Normal 0.2-2.0 The [facility] Comment on above: Performed By: #### C BC ####[facility] Xljvuasbqy5[address] [place] [address]Dr. Chrissy Frazier EO # 0.1 103/ul Normal 0.0-0.7 The [facility] Comment on above: Performed By: #### C BC ####[facility] [address] [place], [place] [address]Dr. Chrissy Frazier Eosinophils/100 WBC (Bld) 0.4 % Critically low 0.9-7.0 The [facility] Comment on above: Performed By: #### C BC ####[facility] Jvzeppkeyo[address] [place], [place] [address]Dr. Chrissy Frazier Erythrocyte distribution width (RBC) [Ratio] 14.6 % Normal 11.0-15.0 [facility] Comment on above: Performed By: #### C BC ####[facility] Bljmdjtinx48[address] [place] [address]Dr. Chrissy Frazier Hematocrit (Bld) [Volume fraction] 39.4 % Critically low 42.0-54.0 [facility] Comment on above: Performed By: #### C BC ####[facility] Uzmjhufzac64[address] [place] [phone]. Chrissy Frazier Hemoglobin (Bld) [Mass/Vol] 13.2 g/dL Critically low 14.0-18.0 The [facility] Comment on above: Performed By: #### C BC ####[facility] Ptudhowuyk5[address] [place] [address]Dr. Chrissy Frazier IG # 0.07 10e3/ul Critically high 0.00-0.03 [facility] Comment on above: Performed By: #### C BC ####[facility] Qjlsaabttg[address] [place], [place] [address]Dr. Chrissy Frazier IG % 0.5 % Normal 0.0-0.5 The [facility] Comment on above: Performed By: #### C BC ####[facility] Yzkugupfum4[address] [place] [address]Dr. Chrissy Frazier LYMPH # 3.7 103/ul Normal 1.2-3.8 The [facility] Comment on above: Performed By: #### C BC ####[facility] Mrbhorgakx5[address] [place], [place] [address]Lz. Chrissy Freddie Lymphocytes/100 WBC (Bld) 27.0 % Normal 20.5-60.0 The [facility] Comment on above: Performed By: #### C BC ####[facility] Zbygaltlao[address] [place] [phone]. Tishrowan Frazier MANUAL DIFF REQ NO Normal [facility] Comment on above: Performed By: #### C BC ####[facility] Cebukqjflu[address] [place] [address]Dr. Chrissy Freddie MCH (RBC) [Entitic mass] 27.8 pg Normal 25.9-34.0 The [facility] Comment on above: Performed By: #### C BC ####[facility] Pfmgiyawfc97[address] [place] [phone]. Chrissy Frazier MCHC (RBC) [Mass/Vol] 33.5 g/dL Normal 29.9-35.2 The [facility] Comment on above: Performed By: #### C BC ####[facility] Jbysrlhxfo3[address] [place] [address]Dr. Chrissy Frazier MCV (RBC) [Entitic vol] 82.9 fL Normal 80.0-94.0 The [facility] Comment on above: Performed By: #### C BC ####[facility] Gjmhxkuowu[address] [place] [address]Dr. Chrissy Freddie MONO # 1.2 103/ul Critically high 0.3-0.8 [facility] Comment on above: Performed By: #### C BC ####[facility] Rmlpnldkdd2507 [place] [address]Dr. Tishrowan Frazier Monocytes/100 WBC (Bld) 8.4 % Normal 1.7-12.0 The [facility] Comment on above: Performed By: #### C BC ####[facility] Lsdlcjrtie1035 [place] [address]Dr. Chrissy Frazier NEUT # 8.8 103/ul Critically high 1.4-6.5 [facility] Comment on above: Performed By: #### C BC ####[facility] Mlslywefon8579 [place] [address]Dr. Chrissy Frazier Neutrophils/100 WBC (Bld) 63.5 % Normal 43.0-75.0 The [facility] Comment on above: Performed By: #### C BC ####[facility] Qbfnfebnzc1433 [place] [address]Dr. Tishrowan Frazier Platelet mean volume (Bld) [Entitic vol] 10.7 fL Normal 9.5-13.5 The [facility] Comment on above: Performed By: #### C BC ####[facility] Gqzxcoftnv57[address] [place] [address]Dr. Chrissy Frazier PLT 291 103/ul Normal 150-450 The [facility] Comment on above: Performed By: #### C BC ####[facility] E[address] [place], [place] [address]Dr. Chrissy Frazier RBC 4.75 106/ul Normal 4.70-6.10 The [facility] Comment on above: Performed By: #### C BC ####[facility] Wdbjeafitt8[address] [place] [phone]. Chrissy Frazier WBC 13.8 103/ul Critically high 4.0-11.0 [facility] Comment on above: Performed By: #### C BC ####[facility] [address]qsbvffbmy[address] [place], [place] [address]Dr. Chrissy Frazier LIPASEon 10-24-2022 Lipase [Catalytic activity/Vol] 44.0 U/L Critically low 73.0-393.0 The [facility] Comment on above: Performed By: #### C MP, LIPA, TERRENCE ####[facility] Enwngbfgls75[address] [place] [address]Dr. Chrissy Frazier PROF 14(COMP METB)on 022 Albumin [Mass/Vol] 3.4 g/dL Normal 3.4-5.0 [facility] Comment on above: Performed By: #### C OSWALD ADAIR, TERRENCE ####[facility] Ahdvzeshjz8241 [place] [address]Dr. Chrissy Frazier Albumin/Globulin [Mass ratio] 0.9 {ratio} Normal [facility] Comment on above: Performed By: #### C TESSA ADAIRA, TERRENCE ####[facility] Larmckrmqq[address] [place], [place] [address]Dr. Tishrowan Frazier ALP [Catalytic activity/Vol] 67 U/L Normal 46-116 [facility] Comment on above: Performed By: #### C OSWALD ADAIR, TERRENCE ####[facility] Xnfoqaadau[address] [place], [place] [address]Dr. Chrissy Frazier ALT [Catalytic activity/Vol] 25 U/L Normal 16-63 [facility] Comment on above: Performed By: #### C OSWALD ADAIR, TERRENCE ####[facility] Lyrmvvoyjs[address] [place], [place] [address]Dr. Chrissy Frazier Anion gap [Moles/Vol] 14.5 mmol/L Normal [facility] Comment on above: Performed By: #### C OSWALD ADAIR, TERRENCE ####[facility] Sejxunecbe[address] [place], [place] [address]Dr. Chrissy Frazier AST [Catalytic activity/Vol] 17 U/L Normal 15-37 [facility] Comment on above: Performed By: #### C OSWALD ADAIR, TERRENCE ####[facility] Gmnvjwfpwx[address] [place], [place] [address]Dr. Chrissy Frazier Bilirubin [Mass/Vol] 0.5 mg/dL Normal 0.2-1.0 The [facility] Comment on above: Performed By: #### C OSWALD ADAIR, TERRENCE ####[facility] [address]xhfrpbr[address] [place], [place] [address]Dr. Chrissy Frazier Calcium [Mass/Vol] 8.6 mg/dL Normal 8.5-10.1 [facility] Comment on above: Performed By: #### C TESSA ADAIRA, TERRENCE ####[facility] Potvosfvcf6435 [place] [address]Dr. Chrissy Frazier Chloride [Moles/Vol] 106 mmol/L Normal 98-107 [facility] [facility] Comment on above: Performed By: #### C OSWALD ADAIR, TERRENCE ####[facility] [address] [place] [address]Dr. Chrissy Frazier CO2 [Moles/Vol] 22.8 mmol/L Normal 21.0-32.0 The [facility] Comment on above: Performed By: #### C OSWALD ADAIR, TERRENCE ####[facility] [address]zayzzhhes[address] [place] [address]Dr. Chrissy Frazier Creatinine [Mass/Vol] 0.98 mg/dL Normal 0.70-1.30 The [facility] Comment on above: Performed By: #### C OSWALD ADAIR, TERRENCE ####[facility] Onhddtkezw[address] [place], [place] [address]Dr. Chrissy Frazier EGFR-AF SLOVAK >60 Normal >=60 The [facility] Comment on above: Performed By: #### C OSWALD ADAIR, TERRENCE ####[facility] Fnrablyaiv[address] [place], [place] [address]Dr. Chrissy Frazier EGFR-NON AF SLOVAK >60 Normal >=60 The [facility] Comment on above: Performed By: #### C OSWALD ADAIR, TERRENCE ####[facility] Ijresykngi[address] [place] [address]Dr. Chrissy Frazier Globulin (S) [Mass/Vol] 3.7 g/dL Normal The [facility] Comment on above: Performed By: #### C OSWALD ADAIR, TERRENCE ####[facility] [address]dgacwu[address] [place] [address]Dr. Chrissy Frazier Glucose [Mass/Vol] 115 mg/dL Critically high 74-106 [facility] Comment on above: Performed By: #### C OSWALD ADAIR, TERRENCE ####[facility] Zjsqzixtqr[address] [place], [place] [address]Dr. Chrissy Frazier Potassium [Moles/Vol] 3.3 mmol/L Critically low 3.5-5.1 The [facility] Comment on above: Performed By: #### C MP, LIPA, TERRENCE ####[facility] Wopjafsibd[address] [place], [place] [address]Dr. Chrissy Frazier Protein [Mass/Vol] 7.1 g/dL Normal 6.4-8.2 [facility] Comment on above: Performed By: #### C MP, LIPA, TERRENCE ####[facility] I[address]umqwbtt[address] [place], [place] [address]Dr. Chrissy Frazier Sodium [Moles/Vol] 140 mmol/L Normal 136-145 The [facility] Comment on above: Performed By: #### C MP, LIPA, TERRENCE ####[facility] Wfjkfermvz[address] [place], [place] [address]Dr. Chrissy Frazier Urea nitrogen [Mass/Vol] 10.0 mg/dL Normal 7.0-18.0 [facility] Comment on above: Performed By: #### C MP, LIPA, TERRENCE ####[facility] Yevtqfnikl[address] [place], [place] [address]Dr. Chrissy Frazier Urea nitrogen/Creatinine [Mass ratio] 10.2 mg/mg Normal [facility] Comment on above: Performed By: #### C MP, LIPA, TERRENCE ####[facility] Pwapurxkfw[address] [place], [place] [address]Dr. Chrissy Frazier AMYLASEon 10-23-2022 Amylase [Catalytic activity/Vol] 31 U/L Normal 25-115 The [facility] Comment on above: Performed By: #### C MP, LIPA, TERRENCE ####[facility] Sxkqpsbqve[address] [place], [place] [address]Dr. Chrissy Frazier CBC AUTO DIFFon 10-23-2022 BASO # 0.1 103/ul Normal 0.0-0.1 The [facility] Comment on above: Performed By: #### C BC ####[facility] Vnnatuwpns[address] [place], [place] [address]Dr. Chrissy Frazier Basophils/100 WBC (Bld) 0.3 % Normal 0.2-2.0 [facility] Comment on above: Performed By: #### C BC ####[facility] [address]vzeyvscur[address] [place] [address]Dr. Chrissy Frazier EO # 0.1 103/ul Normal 0.0-0.7 The [facility] Comment on above: Performed By: #### C BC ####[facility] Bbscmmluhz[address] [place] [address]Dr. Chrissy Frazier Eosinophils/100 WBC (Bld) 0.3 % Critically low 0.9-7.0 The [facility] Comment on above: Performed By: #### C BC ####[facility] Nsmtjqehum[address] [place], [place] [address]Dr. Chrissy Frazier Erythrocyte distribution width (RBC) [Ratio] 14.5 % Normal 11.0-15.0 The [facility] Comment on above: Performed By: #### C BC ####[facility] Slvzbaglar[address] [place], [place] [address]Dr. Chrissy Frazier Hematocrit (Bld) [Volume fraction] 44.0 % Normal 42.0-54.0 The [facility] Comment on above: Performed By: #### C BC ####[facility] [address]qxknbyh[address] [place], [place] [address]Dr. Chrissy Frazier Hemoglobin (Bld) [Mass/Vol] 14.8 g/dL Normal 14.0-18.0 The [facility] Comment on above: Performed By: #### C BC ####[facility] [address]ie[address] [place] [address]Dr. Chrissy Frazier IG # 0.09 10e3/ul Critically high 0.00-0.03 The [facility] Comment on above: Performed By: #### C BC ####[facility] Hgttmdlxwn[address] [place] [address]Dr. Chrissy Frazier IG % 0.5 % Normal 0.0-0.5 The [facility] Comment on above: Performed By: #### C BC ####[facility] [address]ijspbamh[address] [place], [place] [address]Dr. Chrissy Frazier LYMPH # 3.6 103/ul Normal 1.2-3.8 The [facility] Comment on above: Performed By: #### C BC ####[facility] [address] [place] [phone]. Chrissy Freddie Lymphocytes/100 WBC (Bld) 19.4 % Critically low 20.5-60.0 The [facility] Comment on above: Performed By: #### C BC ####[facility] [address] [place] [phone]. Tishrowan Frazier MANUAL DIFF REQ NO Normal The [facility] Comment on above: Performed By: #### C BC ####[facility] F[address]csunpjq[address] [place] [phone]. Chrissy Freddie MCH (RBC) [Entitic mass] 28.1 pg Normal 25.9-34.0 The [facility] Comment on above: Performed By: #### C BC ####[facility] [address]ns[address] [place] [phone]. Chrissy Freddie MCHC (RBC) [Mass/Vol] 33.6 g/dL Normal 29.9-35.2 The [facility] Comment on above: Performed By: #### C BC ####[facility] [address]jeofcelj[address] [place] [phone]. Chrissy Freddie MCV (RBC) [Entitic vol] 83.5 fL Normal 80.0-94.0 The [facility] Comment on above: Performed By: #### C BC ####[facility] [address] [place] [phone]. Chrissy Frazier MONO # 0.9 103/ul Critically high 0.3-0.8 The [facility] Comment on above: Performed By: #### C BC ####[facility] Yx[address]aiysfvj[address] [place] [phone]. Tishrowan Frazier Monocytes/100 WBC (Bld) 4.9 % Normal 1.7-12.0 The [facility] Comment on above: Performed By: #### C BC ####[facility] [address]xlulm[address] [place] [phone]. Chrissy Frazier NEUT # 13.9 103/ul Critically high 1.4-6.5 The [facility] Comment on above: Performed By: #### C BC ####[facility] [address]qzj[address] [place] [phone]. Chrissy Frazier Neutrophils/100 WBC (Bld) 74.6 % Normal 43.0-75.0 The [facility] Comment on above: Performed By: #### C BC ####[facility] J[address]uzxjabv[address] [place] [phone]. Chrissy Frazier Platelet mean volume (Bld) [Entitic vol] 10.5 fL Normal 9.5-13.5 The [facility] Comment on above: Performed By: #### C BC ####[facility] V[address]ovwz[address] [place] [phone]. Chrissy Frazier PLT 402 103/ul Normal 150-450 The [facility] Comment on above: Performed By: #### C BC ####[facility] U[address]wziyhwb[address] [place] [phone]. Chrissy Frazier RBC 5.27 106/ul Normal 4.70-6.10 The [facility] Comment on above: Performed By: #### C BC ####[facility] Rozszwwuel[address] [place] [phone]. Chrissy Frazier WBC 18.6 103/ul Critically high 4.0-11.0 The [facility] Comment on above: Performed By: #### C BC ####[facility] R[address]htqdyd[address] [place] [phone]. Chrissy Frazier CULTURE BLOODon 10-23-2022 Microscopic examination of blood, culture Culture Observations: NO GROWTH AT 5 DAYS. Normal [facility] Comment on above: Performed By: #### B LDCX2 ####[facility] [address]wteicqw[address] [place] [phone]. Chrissy Frazier Microscopic examination of blood, culture Culture Observations: NO GROWTH AT 5 DAYS. Normal [facility] Comment on above: Performed By: #### B LDCX1 ####[facility] F[address]narlxit[address] [place] [phone]. Chrissy Frazier CULTURE URINEon 10-23-2022 CULTURE URINE Culture Observations: NO GROWTH. Normal [facility] Comment on above: Performed By: #### U RCX ####[facility] [address]wsujdjdru[address] [place] [address]Dr. Chrissy Frazier Covid-19 PCR (CVDTB)on SARS-CoV-2 (COVID-19) RNA RHIANNON+probe Ql (Unsp spec) Not detected Normal NOT DETECTED The [facility] Comment on above: Result Comment: When diagnostic [...] for this test is supported by the [place] of Health and Human Service's declaration that [...] be used). Performed By: #### C VDTBH ####[facility] Ajptnpayqs[address] [place], [place] [address]Dr. Chrissy Frazier INFLUENZA A AND B AGon 10-23 INFLUANEGH SEE BELOW Normal The [facility] Comment on above: Result Comment: Nega tive for Flu A protein angiten. Infection due to Flu A cannot be ruled out. Flu A angiten in the sample may be below the detection limit of the test. Performed By: #### I NFLUAB ####[facility] Q[address]xwzpi[address] [place], [place] [address]Dr. Chrissy Frazier INFLUBNEGH SEE BELOW Normal The [facility] Comment on above: Result Comment: Nega tive for Flu B protein antigen. Infection due to Flu B cannot be ruled out. Flu B antigen in the sample may be below the detection limit of the test. Performed By: #### I NFLUAB ####[facility] Xinoxwarwg[address] [place], [place] [address]Dr. Chrissy Frazier INFLUENZA A AG Negative Normal NEGATIVE SEE COMMENT The [facility] Comment on above: Performed By: #### I NFLUAB ####[facility] D[address]qrnuzsv[address] [place] [address]Dr. Chrissy Frazier INFLUENZA B AG Negative Normal NEGATIVE SEE COMMENT The [facility] Comment on above: Performed By: #### I NFLUAB ####[facility] [address]qdorby[address] [place], [place] [address]Dr. Chrissy Frazier INTERNAL CONTROLS Within Normal Limits Normal Wi thin Normal Limits The [facility] Comment on above: Performed By: #### I NFLUAB ####[facility] Yafyhmsvlf[address] [place], [place] [address]Dr. Chrissy Frazier LACTATE/LACTIC ACIDon 2021 Lactate [Moles/Vol] 2.1 mmol/L Critically high 0.4-1.9 [facility] Comment on above: Performed By: #### L ACT ####[facility] Jjixcgmlgs[address] [place], [place] [address]Dr. Chrissy Frazier Lactate [Moles/Vol] 6.9 mmol/L Critically high 0.4-1.9 [facility] Comment on above: Performed By: #### L ACT ####[facility] Vanzbmoesk[address] [place], [place] [address]Dr. Chrissy Freddie LIPASEon 10-23-2022 Lipase [Catalytic activity/Vol] 72.0 U/L Critically low 73.0-393.0 [facility] Comment on above: Performed By: #### C OSWALD ADAIR AMY ####[facility] Lpibmqtqlh[address] [place], [place] [address]Dr. Chrissy Frazier PROF 14(COMP METB)on 022 Albumin [Mass/Vol] 3.9 g/dL Normal 3.4-5.0 The [facility] Comment on above: Performed By: #### C OSWALD ADAIR AMY ####[facility] Hyzkiqffpo[address] [place], [place] [address]Dr. Chrissy Freddie Albumin/Globulin [Mass ratio] 0.9 {ratio} Normal The [facility] Comment on above: Performed By: #### C MP, LIPA, TERRENCE ####[facility] Ushxgwarca[address] [place] [address]Dr. Chrissy Frazier ALP [Catalytic activity/Vol] 82 U/L Normal 46-116 [facility] Comment on above: Performed By: #### C MP, LIPA, TERRENCE ####[facility] Yvphpyymsk[address] [place] [address]Dr. Chrissy Frazier ALT [Catalytic activity/Vol] 25 U/L Normal 16-63 [facility] Comment on above: Performed By: #### C MP, LIPA, TERRENCE ####[facility] Xkzewrdjum[address] [place], [place] [address]Dr. Chrissy Frazier Anion gap [Moles/Vol] 18.1 mmol/L Normal [facility] Comment on above: Performed By: #### C MP, LIPA, TERRENCE ####[facility] Ivyatthhfx[address] [place], [place] [address]Dr. Chrissy Frazier AST [Catalytic activity/Vol] 17 U/L Normal 15-37 [facility] Comment on above: Performed By: #### C MP, LIPA, TERRENCE ####[facility] Knplgmjhnc[address] [place], [place] [address]Dr. Chrissy Frazier Bilirubin [Mass/Vol] 0.5 mg/dL Normal 0.2-1.0 [facility] Comment on above: Performed By: #### C MP, LIPA, TERRENCE ####[facility] W[address]qctmjge[address] [place], [place] [address]Dr. Chrissy Frazier Calcium [Mass/Vol] 9.1 mg/dL Normal 8.5-10.1 [facility] Comment on above: Performed By: #### C MP, LIPA, TERRENCE ####[facility] Ocktnjzbgg[address] [place], [place] [address]Dr. Chrissy Frazier Chloride [Moles/Vol] 101 mmol/L Normal 98-107 [facility] Comment on above: Performed By: #### C MP, LIPA, TERRENCE ####[facility] Lsfantyiby[address] [place], [place] [address]Dr. Chrissy Frazier CO2 [Moles/Vol] 19.2 mmol/L Critically low 21.0-32.0 [facility] Comment on above: Performed By: #### C OSWALD ADAIR TERRENCE ####[facility] Syvkpcitbf[address] [place] [address]Dr. Chrissy Frazier Creatinine [Mass/Vol] 1.72 mg/dL Critically high 0.70-1.30 [facility] Comment on above: Performed By: #### C OSWALD ADAIR, TERRENCE ####[facility] Tyrnxtuxcs[address] [place] [address]Dr. Chrissy Frazier EGFR-AF SLOVAK 56 mL/min/1.73m2 Critically low >=60 [facility] Comment on above: Performed By: #### C OSWALD ADAIR, TERRENCE ####[facility] Vubviwpmyt[address] [place] [address]Dr. Chrissy Frazier EGFR-NON AF [place] 46 mL/min/1.73m2 Critically low >=60 [facility] Comment on above: Performed By: #### C OSWALD ADAIR, TERRENCE ####[facility] Mtbvhryiga[address] [place], [place] [address]Dr. Chrissy Frazier Globulin (S) [Mass/Vol] 4.2 g/dL Normal [facility] Comment on above: Performed By: #### C OSWALD ADAIR, TERRENCE ####[facility] Cdxfrikhov[address] [place] [address]Dr. Chrissy Frazier Glucose [Mass/Vol] 126 mg/dL Critically high 74-106 T [facility] Comment on above: Performed By: #### C OSWALD ADAIR, TERRENCE ####[facility] Nuonytszrk[address] [place] [address]Dr. Chrissy Frazier Potassium [Moles/Vol] 3.3 mmol/L Critically low 3.5-5.1 [facility] Comment on above: Performed By: #### C TESSA ADAIRA, TERRENCE ####[facility] Wpumzshuvs[address] [place] [address]Dr. Chrissy Frazier Protein [Mass/Vol] 8.1 g/dL Normal 6.4-8.2 [facility] Comment on above: Performed By: #### C OSWALD ADAIR, TERRENCE ####[facility] Jok[address]zanefb[address] [place] [address]Dr. Chrissy Frazier Sodium [Moles/Vol] 135 mmol/L Critically low 136-145 Th e [facility] Comment on above: Performed By: #### C TESSA ADAIRA, TERRENCE ####[facility] Zbisdumtnv70[address] [place] [address]Dr. Chrissy Frazier Urea nitrogen [Mass/Vol] 13.0 mg/dL Normal 7.0-18.0 [facility] Comment on above: Performed By: #### C OSWALD ADAIR, TERRENCE ####[facility] Xpqnseeinx[address] [place], [place] [address]Dr. Chrissy Frazier Urea nitrogen/Creatinine [Mass ratio] 7.6 mg/mg Normal The [facility] Comment on above: Performed By: #### C OSWALD ADAIR, TERRENCE ####[facility] Urzuicekwc[address] [place], [place] [address]Dr. Chrissy Frazier UA RANDOM W/MICROSCOPICon BACTERIA NONE SEEN Normal NONE SEEN [facility] Comment on above: Performed By: #### U AMIC ####[facility] Ywdlnyzqrt[address] [place], [place] [address]Dr. Chrissy Frazier Bilirubin Ql (U) Negative Normal NEGATIVE The [facility] Comment on above: Performed By: #### U AMIC ####[facility] Lpcuzjlsnp[address] [place], [place] [address]Dr. Chrissy Frazier CAST NONE SEEN Normal NONE SEEN The [facility] Comment on above: Performed By: #### U AMIC ####[facility] Esiidayrzp[address] [place], [place] [address]Dr. Chrissy Frazier Clarity (U) CLEAR Normal CLEAR The [facility] Comment on above: Performed By: #### U AMIC ####[facility] Eglpwmpzyv[address] [place] [address]Dr. Chrissy Frazier Color (U) LT. YELLOW Normal YELLOW The [facility] Comment on above: Performed By: #### U AMIC ####[facility] Gcxxfmqhcb49[address] [place] [address]Dr. Chrissy Frazier Crystals LM Nom (Urine sed) NONE SEEN Normal NONE SEEN The [facility] Comment on above: Performed By: #### U AMIC ####[facility] [address]tejyxdqf[address] [place], [place] [address]Dr. Chrissy Frazier Epithelial cells LM Ql (Urine sed) FEW Abnormal NONE SEEN /RARE The [facility] Comment on above: Performed By: #### U AMIC ####[facility] Opwldokabz9[address] [place], [place] [address]Dr. Chrissy Frazier Glucose Ql (U) Negative Normal NEGATIVE The [facility] Comment on above: Performed By: #### U AMIC ####[facility] Wvjyvhkaxc[address] [place], [place] [address]Dr. Chrissy Frazier Hemoglobin Ql (U) Negative Normal NEGATIVE The [facility] Comment on above: Performed By: #### U AMIC ####[facility] Kghajmqffu[address] [place], [place] [address]Dr. Chrissy Frazier Ketones Ql (U) 15 mg/dl Abnormal NEGATIVE The [facility] Comment on above: Performed By: #### U AMIC ####[facility] Yoxmbucnvf[address] [place], [place] [address]Dr. Chrsisy Frazier LEUKOCYTES Negative Normal NEGATIVE The [facility] Comment on above: Performed By: #### U AMIC ####[facility] Popexjzmxz[address] [place], [place] [address]Dr. Chrissy Frazier MUCOUS NONE SEEN Normal NONE SEEN The [facility] Comment on above: Performed By: #### U AMIC ####[facility] Rpkqlizrjo[address] [place], [place] [address]Dr. Chrissy Frazier Nitrite Ql (U) Negative Normal NEGATIVE The [facility] Comment on above: Performed By: #### U AMIC ####[facility] Lrzmloeoce[address] [place], [place] [address]Dr. Chrissy Frazier pH (U) 6.0 [pH] Normal 5-9 The [facility] Comment on above: Performed By: #### U AMIC ####[facility] Njgng[address]tg[address] [place], [place] [address]Dr. Chrissy Frazier RBC 0-2 Normal 0-2 The [facility] Comment on above: Performed By: #### U AMIC ####[facility] Ncqzjwungx[address] [place] [address]Dr. Chrissy Frazier SPEC GRAVITY 1.010 Normal 1.005-<=1.025 [facility] Comment on above: Performed By: #### U AMIC ####[facility] Ddvbgafrjz45[address] [place] [address]Dr. Chrissy Freddie UA PROTEIN Negative Normal NEGATIVE/ TRACE [facility] Comment on above: Performed By: #### U AMIC ####[facility] Pppvjgqmsw[address] [place] [address]Dr. Chrissy Freddie Urobilinogen Qn (U) 0.2 {Estrellita'U}/dL Normal 0.2 - 1. 0 The [facility] Comment on above: Performed By: #### U AMIC ####[facility] [address]ak[address] [place], [place] [address]Dr. Chrissy Freddie WBC NONE SEEN Normal NONE SEEN The [facility] Comment on above: Performed By: #### U AMIC ####[facility] Z[address]qehrfn[address] [place], [place] [address]Dr. Chrissy Freddie AMYLASEon 10-22-2022 Amylase [Catalytic activity/Vol] 28 U/L Normal 25-115 The [facility] Comment on above: Performed By: #### L IPA, CMP, TERRENCE ####[facility] Kbqgzojkpf[address] [place], [place] [address]Dr. Chrissy Freddie CBC AUTO DIFFon 10-22-2022 BASO # 0.0 103/ul Normal 0.0-0.1 The [facility] Comment on above: Performed By: #### C BC ####[facility] Fuqhlasffq847[address] [place], [place] [address]Dr. Tishrowan Frazier Basophils/100 WBC (Bld) 0.2 % Normal 0.2-2.0 The [facility] Comment on above: Performed By: #### C BC ####[facility] Obxasglqbz16[address] [place], [place] [address]Dr. Chrissy Frazier EO # 0.0 103/ul Normal 0.0-0.7 The [facility] Comment on above: Performed By: #### C BC ####[facility] [address]xbxi[address] [place] [address]Dr. Chrissy Frazier Eosinophils/100 WBC (Bld) 0.1 % Critically low 0.9-7.0 The [facility] Comment on above: Performed By: #### C BC ####[facility] [address]dnehfsv[address] [place] [address]Dr. Chrissy Frazier Erythrocyte distribution width (RBC) [Ratio] 14.4 % Normal 11.0-15.0 The [facility] Comment on above: Performed By: #### C BC ####[facility] Ydkltzyfas[address] [place], [place] [address]Dr. Chrissy Frazier Hematocrit (Bld) [Volume fraction] 45.2 % Normal 42.0-54.0 The [facility] Comment on above: Performed By: #### C BC ####[facility] Qbwxtvkdjy275[address] [place], [place] [address]Dr. Chrissy Frazier Hemoglobin (Bld) [Mass/Vol] 15.4 g/dL Normal 14.0-18.0 The [facility] Comment on above: Performed By: #### C BC ####[facility] Ihhtrykltn[address] [place], [place] [address]Dr. Chrissy Frazier IG # 0.07 10e3/ul Critically high 0.00-0.03 [facility] Comment on above: Performed By: #### C BC ####[facility] Adjxpianwy38[address] [place] [address]Dr. Chrissy Frazier IG % 0.4 % Normal 0.0-0.5 The [facility] Comment on above: Performed By: #### C BC ####[facility] Hqbycilnsy[address] [place], [place] [address]Dr. Chrissy Frazier LYMPH # 2.0 103/ul Normal 1.2-3.8 The [facility] Comment on above: Performed By: #### C BC ####[facility] Xjjpnhaopl457[address] [place], [place] [address]Dr. Chrissy Frazier Lymphocytes/100 WBC (Bld) 12.2 % Critically low 20.5-60.0 The [facility] Comment on above: Performed By: #### C BC ####[facility] Soccdedykh[address] [place] [address]DrNancy Frazier MANUAL DIFF REQ NO Normal [facility] Comment on above: Performed By: #### C BC ####[facility] Unpgcqshmu84[address] [place] [address]Dr. Chrissy Frazier MCH (RBC) [Entitic mass] 28.3 pg Normal 25.9-34.0 The [facility] Comment on above: Performed By: #### C BC ####[facility] Uulibwqnvi[address] [place], [place] [address]Dr. Chrissy Frazier MCHC (RBC) [Mass/Vol] 34.1 g/dL Normal 29.9-35.2 The [facility] Comment on above: Performed By: #### C BC ####[facility] Lbomfmnipl206[address] [place], [place] [address]Dr. Chrissy Frazier MCV (RBC) [Entitic vol] 82.9 fL Normal 80.0-94.0 The [facility] Comment on above: Performed By: #### C BC ####[facility] Hzylqlkyus7[address] [place], [place] [address]Dr. Chrissy Frazier MONO # 0.3 103/ul Normal 0.3-0.8 The [facility] Comment on above: Performed By: #### C BC ####[facility] Ymwzkhwntr020[address] [place], [place] [address]Dr. Chrissy Frazier Monocytes/100 WBC (Bld) 2.0 % Normal 1.7-12.0 The [facility] Comment on above: Performed By: #### C BC ####[facility] Awxcgdsohv26[address] [place], [place] [address]DrNancy Frazier NEUT # 14.0 103/ul Critically high 1.4-6.5 The [facility] Comment on above: Performed By: #### C BC ####[facility] Oklumuxapb64[address] [place], [place] [address]Dr. Chrissy Frazier Neutrophils/100 WBC (Bld) 85.1 % Critically high 43.0-75.0 The [facility] Comment on above: Performed By: #### C BC ####[facility] Rrvxhdopwx22[address] [place] [address]Dr. Chrissy Frazier Platelet mean volume (Bld) [Entitic vol] 10.6 fL Normal 9.5-13.5 The [facility] Comment on above: Performed By: #### C BC ####[facility] Toedoidsqn[address] [place] [address]Dr. Chrissy Frazier PLT 411 103/ul Normal 150-450 The [facility] Comment on above: Performed By: #### C BC ####[facility] Lcechrhefm7[address] [place] [address]Dr. Tishrowan Frazier RBC 5.45 106/ul Normal 4.70-6.10 The [facility] Comment on above: Performed By: #### C BC ####[facility] Bfzmvsdphn[address] [place], [place] [address]Dr. Chrissy Frazier WBC 16.5 103/ul Critically high 4.0-11.0 The [facility] Comment on above: Performed By: #### C BC ####[facility] Yozlnpxlqh[address] [place], [place] [address]Dr. Chrissy Freddie LIPASEon 10-22-2022 Lipase [Catalytic activity/Vol] 57.0 U/L Critically low 73.0-393.0 [facility] Comment on above: Performed By: #### L JULIEN CMP, TERRENCE ####[facility] Vwrhoxxdni[address] [place] [address]Dr. Chrissy Frazier PROF 14(COMP METB)on 022 Albumin [Mass/Vol] 4.2 g/dL Normal 3.4-5.0 The [facility] Comment on above: Performed By: #### L IPA CMP, TERRENCE ####[facility] Zepwtwcqfj48[address] [place] [address]Dr. Chrissy Frazier Albumin/Globulin [Mass ratio] 1.0 {ratio} Normal The [facility] Comment on above: Performed By: #### L IPA, CMP, TERRENCE ####[facility] Wznrlmxlce4791 [place] [address]Dr. Chrissy Frazier ALP [Catalytic activity/Vol] 92 U/L Normal 46-116 [facility] Comment on above: Performed By: #### L IPA, CMP, TERRENCE ####[facility] Vlcljcjjzp4766 [place] [address]Dr. Chrissy Frazier ALT [Catalytic activity/Vol] 26 U/L Normal 16-63 [facility] Comment on above: Performed By: #### L IPA, CMP, TERRENCE ####[facility] Acbadiqygb18[address] [place] [address]Dr. Chrissy Frazier Anion gap [Moles/Vol] 19.5 mmol/L Normal [facility] Comment on above: Performed By: #### L IPA, CMP, TERRENCE ####[facility] Tmndirmzvc[address] [place], [place] [address]Dr. Chrissy Frazier AST [Catalytic activity/Vol] 19 U/L Normal 15-37 [facility] Comment on above: Performed By: #### L IPA, CMP, TERRENCE ####[facility] Mjgjvgulpx16[address] [place], [place] [address]Dr. Chrissy Frazier Bilirubin [Mass/Vol] 0.7 mg/dL Normal 0.2-1.0 [facility] Comment on above: Performed By: #### L IPA, CMP, TERRENCE ####[facility] Hnhhjeimbl38[address] [place] [address]Dr. Chrissy Frazier Calcium [Mass/Vol] 9.6 mg/dL Normal 8.5-10.1 [facility] Comment on above: Performed By: #### L IPA, CMP, TERRENCE ####[facility] Cvhidanrot1222 [place] [address]Dr. Chrissy Frazier Chloride [Moles/Vol] 102 mmol/L Normal 98-107 [facility] Comment on above: Performed By: #### L IPA, CMP, TERRENCE ####[facility] Xhlenrxklp62[address] [place] [address]Dr. Chrissy Frazier CO2 [Moles/Vol] 19.1 mmol/L Critically low 21.0-32.0 [facility] Comment on above: Performed By: #### L IPA CMP, TERRENCE ####[facility] Vkffvbysst34[address] [place] [address]Dr. Chrissy Frazier Creatinine [Mass/Vol] 1.47 mg/dL Critically high 0.70-1.30 [facility] Comment on above: Performed By: #### L IPA CMP, TERRENCE ####[facility] Ftqckjpycy[address] [place], [place] [address]Dr. Chrissy Freddie EGFR-AF SLOVAK >60 Normal >=60 [facility] Comment on above: Performed By: #### L IPA CMP, TERRENCE ####[facility] Lztjzghhme986[address] [place], [place] [address]Dr. Tishrowan Freddie EGFR-NON AF [place]OVAK 56 mL/min/1.73m2 Critically low >=60 [facility] Comment on above: Performed By: #### L IPA CMP, TERRENCE ####[facility] Anshyfovyc39[address] [place], [place] [address]Dr. Chrissy Frazier Globulin (S) [Mass/Vol] 4.3 g/dL Normal [facility] Comment on above: Performed By: #### L IPA CMP, TERRENCE ####[facility] Nlctlhfeaj9[address] [place], [place] [address]Dr. Chrissy Frazier Glucose [Mass/Vol] 189 mg/dL Critically high 74-106 [facility] Comment on above: Performed By: #### L IPA CMP, TERRENCE ####[facility] Hnzbjqrfui[address] [place], [place] [address]Dr. Chrissy Frazier Potassium [Moles/Vol] 4.6 mmol/L Normal 3.5-5.1 [facility] Comment on above: Performed By: #### L IPA CMP, TERRENCE ####[facility] Voaxtokyjz808[address] [place], [place] [address]Dr. Chrissy Frazier Protein [Mass/Vol] 8.5 g/dL Critically high 6.4-8.2 [facility] Comment on above: Performed By: #### L IPA CMP, TERRENCE ####[facility] [address]uzumnpwio[address] [place] [id number]. Chrissy Freddie Sodium [Moles/Vol] 136 mmol/L Normal 136-145 The [facility] Comment on above: Performed By: #### L IPA, CMP, TERRENCE ####[facility] Lujjpbggob1490 [place] [address]Dr. Chrissy Freddie Urea nitrogen [Mass/Vol] 16.0 mg/dL Normal 7.0-18.0 [facility] Comment on above: Performed By: #### L IPA, CMP, TERRENCE ####[facility] Rmbeksrtvo79[address] [place] [address]Dr. Tishrowan Frazier Urea nitrogen/Creatinine [Mass ratio] 10.9 mg/mg Normal [facility] Comment on above: Performed By: #### L IPA, CMP, TERRENCE ####[facility] Vqsageeoux[address] [place], [place] [address]Dr. Tishrowan Frazier AMYLASEon 09-03-2022 Amylase [Catalytic activity/Vol] 25 U/L Normal 25-115 [facility] Comment on above: Performed By: #### L IPA, TERRENCE, CMP ####[facility] Khkzlgidal046[address] [place], [place] [address]Dr. Chrissy Frazier CBC AUTO DIFFon 09-03-2022 BASO # 0.0 103/ul Normal 0.0-0.1 [facility] Comment on above: Performed By: #### C BC ####[facility] Megrsmdhkg108[address] [place], [place] [address]Dr. Chrissy Frazier Basophils/100 WBC (Bld) 0.1 % Critically low 0.2-2.0 [facility] Comment on above: Performed By: #### C BC ####[facility] Ikwvqaqtre215[address] [place], [place] [address]Dr. Chrissy Frazier EO # 0.0 103/ul Normal 0.0-0.7 The [facility] Comment on above: Performed By: #### C BC ####[facility] Hdjhpnzfuf266[address] [place], [place] [address]Dr. Chrissy Frazier Eosinophils/100 WBC (Bld) 0.1 % Critically low 0.9-7.0 [facility] Comment on above: Performed By: #### C BC ####[facility] Bskxtzsred[address] [place] [address]Dr. Chrissy Frazier Erythrocyte distribution width (RBC) [Ratio] 14.0 % Normal 11.0-15.0 [facility] Comment on above: Performed By: #### C BC ####[facility] Unknrstbfy8464 [place] [address]Dr. Chrissy Frazier Hematocrit (Bld) [Volume fraction] 42.5 % Normal 42.0-54.0 [facility] Comment on above: Performed By: #### C BC ####[facility] Kqesfvprdx206[address] [place], [place] [address]Dr. Chrissy Frazier Hemoglobin (Bld) [Mass/Vol] 14.1 g/dL Normal 14.0-18.0 [facility] Comment on above: Performed By: #### C BC ####[facility] Ybluflaogz[address] [place], [place] [address]Dr. Chrissy Frazier IG # 0.06 10e3/ul Critically high 0.00-0.03 [facility] Comment on above: Performed By: #### C BC ####[facility] Gudlgbmjlv95[address] [place], [place] [address]Dr. Chrissy Frazier IG % 0.4 % Normal 0.0-0.5 [facility] Comment on above: Performed By: #### C BC ####[facility] Puvpksesvb2[address] [place], [place] [address]Dr. Chrissy Frazier LYMPH # 2.5 103/ul Normal 1.2-3.8 The [facility] Comment on above: Performed By: #### C BC ####[facility] Nmwdzmtdes4925[address] [place], [place] [address]Dr. Chrissy Frazier Lymphocytes/100 WBC (Bld) 16.3 % Critically low 20.5-60.0 [facility] Comment on above: Performed By: #### C BC ####[facility] Hczuhliuvs7[address] [place], [place] [address]Dr. Chrissy Frazier MANUAL DIFF REQ NO Normal [facility] Comment on above: Performed By: #### C BC ####[facility] Apgenkmdew95[address] [place] [id number] Chrissy Freddie MCH (RBC) [Entitic mass] 28.1 pg Normal 25.9-34.0 The [facility] Comment on above: Performed By: #### C BC ####[facility] Eeeantpbmr3774 [place] [address]Dr. Chrissy Frazier MCHC (RBC) [Mass/Vol] 33.2 g/dL Normal 29.9-35.2 [facility] Comment on above: Performed By: #### C BC ####[facility] Emuqxthbyl3995 [place] [address]DrNancy Frazier MCV (RBC) [Entitic vol] 84.8 fL Normal 80.0-94.0 The [facility] Comment on above: Performed By: #### C BC ####[facility] Sunfectcnr[address] [place], [place] [address]DrNancy Frazier MONO # 1.1 103/ul Critically high 0.3-0.8 [facility] Comment on above: Performed By: #### C BC ####[facility] Ypamrgzmsq78[address] [place], [place] [address]DrNancy Frazier Monocytes/100 WBC (Bld) 7.4 % Normal 1.7-12.0 The [facility] Comment on above: Performed By: #### C BC ####[facility] Nupenfumez[address] [place], [place] [address]DrNancy Frazier NEUT # 11.5 103/ul Critically high 1.4-6.5 The [facility] Comment on above: Performed By: #### C BC ####[facility] Qactjhjtxg[address] [place], [place] [id number] Frazier Neutrophils/100 WBC (Bld) 75.7 % Critically high 43.0-75.0 The [facility] Comment on above: Performed By: #### C BC ####[facility] Tazmkqlrhn[address] [place], [place] [address]DrNancy Frazier Platelet mean volume (Bld) [Entitic vol] 10.6 fL Normal 9.5-13.5 [facility] Comment on above: Performed By: #### C BC ####[facility] Buvgtpbhsf13[address] [place] [address]Dr. Chrissy Frazier PLT 310 103/ul Normal 150-450 [facility] Comment on above: Performed By: #### C BC ####[facility] Zdzmidwofs5238 [place] [address]Dr. Chrissy Frazier RBC 5.01 106/ul Normal 4.70-6.10 [facility] Comment on above: Performed By: #### C BC ####[facility] Hklntslyis6839 [place] [address]Dr. Chrissy Frazier WBC 15.2 103/ul Critically high 4.0-11.0 [facility] Comment on above: Performed By: #### C BC ####[facility] Mnqmxqwxfi123[address] [place], [place] [address]Dr. Chrissy Frazier LIPASEon 09-03-2022 Lipase [Catalytic activity/Vol] 46.0 U/L Critically low 73.0-393.0 [facility] Comment on above: Performed By: #### L TERRENCE VICTORIA, CMP ####[facility] Rrwjtxoblu[address] [place], [place] [address]Dr. Chrissy Frazier PROF 14(COMP METB)on 022 Albumin [Mass/Vol] 3.7 g/dL Normal 3.4-5.0 [facility] Comment on above: Performed By: #### L TERRENCE VICTORIA, CMP ####[facility] Hjxkoatizz695[address] [place], [place] [address]Dr. Chrissy Frazier Albumin/Globulin [Mass ratio] 1.0 {ratio} Normal [facility] Comment on above: Performed By: #### L TERRENCE VICTORIA, CMP ####[facility] Ymjyfuzmgq417[address] [place], [place] [address]Dr. Chrissy Frazier ALP [Catalytic activity/Vol] 65 U/L Normal 46-116 The [facility] Comment on above: Performed By: #### L TERRENCE VICTORIA, CMP ####[facility] Dfuecsqpaw77[address] [place] [address]Dr. Chrissy Frazier ALT [Catalytic activity/Vol] 42 U/L Normal 16-63 The [facility] Comment on above: Performed By: #### L TERRENCE VICTORIA, CMP ####[facility] Nasfgcbfdd4274 [place] [address]Dr. Chrissy Frazier Anion gap [Moles/Vol] 14.4 mmol/L Normal [facility] Comment on above: Performed By: #### L TERRENCE VICTORIA, CMP ####[facility] [address]vktqvtgea[address] [place], [place] [address]Dr. Chrissy Frazier AST [Catalytic activity/Vol] 16 U/L Normal 15-37 [facility] Comment on above: Performed By: #### L TERRENCE VICTORIA, CMP ####[facility] Dtlhyohspw9[address] [place], [place] [address]Dr. Chrissy Frazier Bilirubin [Mass/Vol] 0.4 mg/dL Normal 0.2-1.0 The [facility] Comment on above: Performed By: #### L TERRENCE VICTORIA, CMP ####[facility] Pomadbpisc[address] [place], [place] [address]Dr. Chrissy Frazier Calcium [Mass/Vol] 8.7 mg/dL Normal 8.5-10.1 [facility] Comment on above: Performed By: #### L TERRENCE VICTORIA, CMP ####[facility] Zwtsnkbsmv[address] [place], [place] [address]Dr. Chrissy Frazier Chloride [Moles/Vol] 105 mmol/L Normal 98-107 [facility] Comment on above: Performed By: #### L TERRENCE VICTORIA, CMP ####[facility] Uvrjihttzc7684 [place] [address]Dr. Chrissy Frazier CO2 [Moles/Vol] 22.6 mmol/L Normal 21.0-32.0 [facility] Comment on above: Performed By: #### L TERRENCE VICTORIA, CMP ####[facility] Dowmlddvpx[address] [place], [place] [address]Dr. Chrissy Frazier Creatinine [Mass/Vol] 1.11 mg/dL Normal 0.70-1.30 The [facility] Comment on above: Performed By: #### L IPA TERRENCE, CMP ####[facility] Nltsddoibt[address] [place] [id number]. Chrissy Frazier EGFR-AF [place] >60 Normal >=60 [facility] Comment on above: Performed By: #### L IPA TERRENCE, CMP ####[facility] Lsiofkhsya[address] [place] [id number]. Chrissy Frazier EGFR-NON AF [place] >60 Normal >=60 [facility] Comment on above: Performed By: #### L IPA TERRENCE, CMP ####[facility] Zdaclmoemc27[address] [place] [address]Dr. Chrissy Frazier Globulin (S) [Mass/Vol] 3.7 g/dL Normal [facility] Comment on above: Performed By: #### L JULIEN TERRENCE, CMP ####[facility] Yunjcirfuw8[address] [place] [address]Dr. Chrissy Frazier Glucose [Mass/Vol] 121 mg/dL Critically high 74-106 [facility] Comment on above: Performed By: #### L JULIEN TERRENCE, CMP ####[facility] Ifaiosdcez30[address] [place] [address]Dr. Chrissy Frazier Potassium [Moles/Vol] 4.0 mmol/L Normal 3.5-5.1 [facility] [facility] Comment on above: Performed By: #### L JULIEN TERRENCE, CMP ####[facility] Etsrh[address]stg[address] [place] [address]Dr. Chrissy Frazier Protein [Mass/Vol] 7.4 g/dL Normal 6.4-8.2 [facility] Comment on above: Performed By: #### L JULIEN TERRENCE, CMP ####[facility] Pxfmpswlaa[address] [place] [address]Dr. Chrissy Frazier Sodium [Moles/Vol] 138 mmol/L Normal 136-145 [facility] Comment on above: Performed By: #### L IPA TERRENCE, CMP ####[facility] Hgrzjyzwaz4[address] [place] [address]Dr. Chrissy Frazier Urea nitrogen [Mass/Vol] 6.0 mg/dL Critically low 7.0-18.0 The [facility] Comment on above: Performed By: #### L IPA, TERRENCE, CMP ####[facility] Zonplzgere[address] [place], [place] [address]Dr. Chrissy Frazier Urea nitrogen/Creatinine [Mass ratio] 5.4 mg/mg Normal The [facility] Comment on above: Performed By: #### L IPA, TERRENCE, CMP ####[facility] Tsuclsfbos[address] [place], [place] [address]Dr. Chrissy Frazier AMYLASEon 09-02-2022 Amylase [Catalytic activity/Vol] 29 U/L Normal 25-115 The [facility] Comment on above: Performed By: #### A MY, CMP, LIPA ####[facility] Mdhsctxhry[address] [place], [place] [address]Dr. Chrissy Frazier CBC AUTO DIFFon 09-02-2022 BASO # 0.1 103/ul Normal 0.0-0.1 The [facility] Comment on above: Performed By: #### C BC ####[facility] Japkjamugv[address] [place], [place] [address]Dr. Chrissy Frazier Basophils/100 WBC (Bld) 0.4 % Normal 0.2-2.0 The [facility] Comment on above: Performed By: #### C BC ####[facility] Vfxgyalswm[address] [place], [place] [address]Dr. Chrissy Frazier EO # 0.1 103/ul Normal 0.0-0.7 The [facility] Comment on above: Performed By: #### C BC ####[facility] Fv[address]kjafoo[address] [place], [place] [address]Dr. Chrissy Frazier Eosinophils/100 WBC (Bld) 0.7 % Critically low 0.9-7.0 The [facility] Comment on above: Performed By: #### C BC ####[facility] Tojbbjycdc[address] [place], [place] [address]Dr. Chrissy Frazier Erythrocyte distribution width (RBC) [Ratio] 13.7 % Normal 11.0-15.0 The [facility] Comment on above: Performed By: #### C BC ####[facility] Xxcnmjxwdn[address] [place] [phone]. Chrissy Frazier Hematocrit (Bld) [Volume fraction] 48.3 % Normal 42.0-54.0 [facility] Comment on above: Performed By: #### C BC ####[facility] Utyostqzwp[address] [place] [phone]. Chrissy Frazier Hemoglobin (Bld) [Mass/Vol] 16.0 g/dL Normal 14.0-18.0 The [facility] Comment on above: Performed By: #### C BC ####[facility] Sweenouczo[address] [place] [phone]. Chrissy Freddie IG # 0.09 10e3/ul Critically high 0.00-0.03 [facility] Comment on above: Performed By: #### C BC ####[facility] Pevexqoarx[address] [place] [address]Dr. Chrissy Frazier IG % 0.5 % Normal 0.0-0.5 [facility] Comment on above: Performed By: #### C BC ####[facility] Pwpadpfnjg14[address] [place] [address]Dr. Tishrowan Frazier LYMPH # 3.7 103/ul Normal 1.2-3.8 The [facility] Comment on above: Performed By: #### C BC ####[facility] Wmlrvftdye[address] [place] [address]Dr. Tishrowan Frazier Lymphocytes/100 WBC (Bld) 21.5 % Normal 20.5-60.0 The [facility] Comment on above: Performed By: #### C BC ####[facility] [address]sbjtdl[address] [place] [phone]. Tishrowan Frazier MANUAL DIFF REQ NO Normal [facility] Comment on above: Performed By: #### C BC ####[facility] Mnleloodgx[address] [place] [address]Dr. Chrissy Freddie MCH (RBC) [Entitic mass] 28.1 pg Normal 25.9-34.0 [facility] Comment on above: Performed By: #### C BC ####[facility] Fqkpdlrpuf60[address] [place] [phone]. Chrissy Frazier MCHC (RBC) [Mass/Vol] 33.1 g/dL Normal 29.9-35.2 The [facility] Comment on above: Performed By: #### C BC ####[facility] Xdlurltixj26[address] [place] [phone]. Chrissy Frazier MCV (RBC) [Entitic vol] 84.7 fL Normal 80.0-94.0 The [facility] Comment on above: Performed By: #### C BC ####[facility] Nkzoxkrwmh[address] [place] [phone]. Chrissy Frazier MONO # 0.7 103/ul Normal 0.3-0.8 The [facility] Comment on above: Performed By: #### C BC ####[facility] Butwbgyord36[address] [place] [address]Dr. Chrissy Frazier Monocytes/100 WBC (Bld) 4.2 % Normal 1.7-12.0 The [facility] Comment on above: Performed By: #### C BC ####[facility] [address]ir[address] [place], [place] [id number]. Chrissy Frazier NEUT # 12.4 103/ul Critically high 1.4-6.5 The [facility] Comment on above: Performed By: #### C BC ####[facility] Smvzjjnwdi23[address] [place] [phone]. Chrissy Frazier Neutrophils/100 WBC (Bld) 72.7 % Normal 43.0-75.0 The [facility] Comment on above: Performed By: #### C BC ####[facility] Yjterxnmdi33[address] [place] [phone]. Chrissy Frazier Platelet mean volume (Bld) [Entitic vol] 10.9 fL Normal 9.5-13.5 The [facility] Comment on above: Performed By: #### C BC ####[facility] Aerrihjdxv[address] [place] [phone]. Chrissy Freddie PLT 386 103/ul Normal 150-450 The [facility] Comment on above: Performed By: #### C BC ####[facility] I[address]krwzrbyh[address] [place], [place] [address]Ed. Chrissy Frazier RBC 5.70 106/ul Normal 4.70-6.10 The [facility] Comment on above: Performed By: #### C BC ####[facility] Pemnhlbeut[address] [place] [phone]. Chrissy Frazier WBC 17.0 103/ul Critically high 4.0-11.0 The [facility] Comment on above: Performed By: #### C BC ####[facility] Mtagyhlbeo5[address] [place] [phone]. Chrissy Frazier Covid-19 PCR (CVDTBH)on 08-21 SARS-CoV-2 (COVID-19) RNA RHIANNON+probe Ql (Unsp spec) Not detected Normal NOT DETECTED The [facility] Comment on above: Result Comment: When diagnostic [...] for this test is supported by the [place] of Health and Human Service's declaration that [...] be used). Performed By: #### C VDTBH ####[facility] Cmglakhcjx07[address] [place] [phone]. Chrissy Frazier LACTATE/LACTIC ACIDon 2021 Lactate [Moles/Vol] 7.1 mmol/L Critically high 0.4-1.9 The [facility] Comment on above: Performed By: #### L ACT ####[facility] Lbunkglidj6739 [place] [phone]. Chrissy Frazier Lactate [Moles/Vol] 8.6 mmol/L Critically high 0.4-1.9 [facility] Comment on above: Performed By: #### L ACT ####[facility] Uoutqztzik[address] [place], [place] [address]Dr. Chrissy Frazier LIPASEon 09-02-2022 Lipase [Catalytic activity/Vol] 60.0 U/L Critically low 73.0-393.0 [facility] Comment on above: Performed By: #### A MY, CMP, LIPA ####[facility] Wiixcwsljg[address] [place], [place] [address]Dr. Chrissy Frazier POINT OF CARE GLUCOSEon 08-21 Glucose [Mass/Vol] 140 mg/dL Critically high 74-106 [facility] Comment on above: Performed By: #### P OCGLUC ####[facility] Wiwokpfgnj[address] [place], [place] [address]Dr. Chrissy Frazier PROF 14(COMP METB)on 022 Albumin [Mass/Vol] 4.3 g/dL Normal 3.4-5.0 [facility] Comment on above: Performed By: #### A MY, CMP, LIPA ####[facility] Gzzohrbkns[address] [place], [place] [address]Dr. Chrissy Frazier Albumin/Globulin [Mass ratio] 1.0 {ratio} Normal [facility] Comment on above: Performed By: #### A MY, CMP, LIPA ####[facility] Scbpvttnhz64[address] [place] [address]Dr. Chrissy Frazier ALP [Catalytic activity/Vol] 82 U/L Normal 46-116 [facility] Comment on above: Performed By: #### A MY, CMP, LIPA ####[facility] Laowrlewyu[address] [place] [address]Dr. Chrissy Frazier ALT [Catalytic activity/Vol] 48 U/L Normal 16-63 [facility] Comment on above: Performed By: #### A MY, CMP, LIPA ####[facility] Inkmvxyfpj[address] [place] [address]Dr. Chrissy Frazier Anion gap [Moles/Vol] 25.3 mmol/L Normal [facility] Comment on above: Performed By: #### A MY, CMP, LIPA ####[facility] Dmihvtxtfr6419 [place] [address]Dr. Chrissy Frazier AST [Catalytic activity/Vol] 33 U/L Normal 15-37 [facility] Comment on above: Performed By: #### A MY, CMP, LIPA ####[facility] Mdlywqpubp[address] [place], [place] [address]Dr. Chrissy Frazier Bilirubin [Mass/Vol] 0.7 mg/dL Normal 0.2-1.0 The [facility] Comment on above: Performed By: #### A MY, CMP, LIPA ####[facility] Grmtugxiye[address] [place], [place] [address]Dr. Chrissy Frazier Calcium [Mass/Vol] 9.5 mg/dL Normal 8.5-10.1 [facility] Comment on above: Performed By: #### A MY, CMP, LIPA ####[facility] Gdtpmuoyrb[address] [place], [place] [address]Dr. Chrissy Frazier Chloride [Moles/Vol] 100 mmol/L Normal 98-107 The [facility] Comment on above: Performed By: #### A MY, CMP, LIPA ####[facility] Enlyigzrvl[address] [place], [place] [address]Dr. Chrissy Frazier CO2 [Moles/Vol] 14.2 mmol/L Critically low 21.0-32.0 The [facility] Comment on above: Performed By: #### A MY, CMP, LIPA ####[facility] Jocnlxkagd[address] [place], [place] [address]Dr. Chrissy Frazier Creatinine [Mass/Vol] 1.70 mg/dL Critically high 0.70-1.30 The [facility] Comment on above: Performed By: #### A MY, CMP, LIPA ####[facility] Rycfksippe[address] [place], [place] [address]Dr. Chrissy Frazier EGFR-AF SLOVAK 57 mL/min/1.73m2 Critically low >=60 The [facility] Comment on above: Performed By: #### A MY, CMP, LIPA ####[facility] Vfvyaoojvt[address] [place] [phone]. Chrissy Frazier EGFR-NON AF [place] 47 mL/min/1.73m2 Critically low >=60 [facility] Comment on above: Performed By: #### A MY, CMP, LIPA ####[facility] Zaiktcfdoc7[address] [place] [address]Dr. Chrissy Frazier Globulin (S) [Mass/Vol] 4.2 g/dL Normal [facility] Comment on above: Performed By: #### A MY, CMP, LIPA ####[facility] Jdmcoldhiy[address] [place] [address]Dr. Chrissy Frazier Glucose [Mass/Vol] 212 mg/dL Critically high 74-106 [facility] Comment on above: Performed By: #### A MY, CMP, LIPA ####[facility] Khbrznwfmx10[address] [place] [address]Dr. Chrissy Frazier Potassium [Moles/Vol] 3.5 mmol/L Normal 3.5-5.1 [facility] Comment on above: Performed By: #### A MY, CMP, LIPA ####[facility] Ijkyrnjycc[address]65 [place] [address]Dr. Chrissy Frazier Protein [Mass/Vol] 8.5 g/dL Critically high 6.4-8.2 [facility] Comment on above: Performed By: #### A MY, CMP, LIPA ####[facility] Nmqafrqgfc9747 [place] [address]Dr. Chrissy Frazier Sodium [Moles/Vol] 136 mmol/L Normal 136-145 [facility] Comment on above: Performed By: #### A MY, CMP, LIPA ####[facility] Urszhuwobt7021 [place] [address]Dr. Chrissy Frazier Urea nitrogen [Mass/Vol] 9.0 mg/dL Normal 7.0-18.0 [facility] Comment on above: Performed By: #### A MY, CMP, LIPA ####[facility] Nsrxyansuo9091 [place] [address]Dr. Yilan Frazier Urea nitrogen/Creatinine [Mass ratio] 5.3 mg/mg Normal The [facility] Comment on above: Performed By: #### A MY, CMP, LIPA ####[facility] Bxdzjibtrf[address] [place], [place] [address]Dr. Chrissy Frazier AMYLASEon 07-07-2022 Amylase [Catalytic activity/Vol] 33 U/L Normal 25-115 The [facility] Comment on above: Performed By: #### C MP, TERRENCE, BNP, LIPA ####[facility] Tguicarjui[address] [place], [place] [address]Dr. Chrissy Frazier BNPon 07-07-2022 Natriuretic peptide B (Bld) [Mass/Vol] 29.0 pg/mL Normal <=450.0 The [facility] Comment on above: Performed By: #### C MP, TERRENCE, BNP, LIPA ####[facility] Ifczfcumhk[address] [place], [place] [address]Dr. Chrissy Frazier CBC AUTO DIFFon 07-07-2022 BASO # 0.0 103/ul Normal 0.0-0.1 [facility] Comment on above: Performed By: #### C BC ####[facility] Uticnszesr[address] [place], [place] [address]Dr. Chrissy Frazier Basophils/100 WBC (Bld) 0.4 % Normal 0.2-2.0 The [facility] Comment on above: Performed By: #### C BC ####[facility] Ajaaqnuwoh[address] [place], [place] [address]Dr. Chrissy Frazier EO # 0.3 103/ul Normal 0.0-0.7 The [facility] Comment on above: Performed By: #### C BC ####[facility] Lfhisctdkv027[address] [place], [place] [address]Dr. Chrissy Frazier Eosinophils/100 WBC (Bld) 3.0 % Normal 0.9-7.0 The [facility] Comment on above: Performed By: #### C BC ####[facility] Wvtanyekoo[address] [place], [place] [address]Dr. Chrissy Frazier Erythrocyte distribution width (RBC) [Ratio] 14.0 % Normal 11.0-15.0 [facility] Comment on above: Performed By: #### C BC ####[facility] Wjpgokfhvj2471 [place] [address]DrNancy Frazier Hematocrit (Bld) [Volume fraction] 42.8 % Normal 42.0-54.0 [facility] Comment on above: Performed By: #### C BC ####[facility] Jskswlaxrg7753 [place] [address]DrNancy Frazier Hemoglobin (Bld) [Mass/Vol] 14.3 g/dL Normal 14.0-18.0 The [facility] Comment on above: Result Comment: IV F LUIDS RUNNING Performed By: #### C BC ####[facility] Aogdatenun[address] [place], [place] [address]DrNancy Frazier IG # 0.05 10e3/ul Critically high 0.00-0.03 [facility] Comment on above: Performed By: #### C BC ####[facility] Xjanyhhxiq[address] [place], [place] [address]DrNancy Frazier IG % 0.5 % Normal 0.0-0.5 [facility] Comment on above: Performed By: #### C BC ####[facility] Lblupqvqkr[address] [place], [place] [address]DrNancy Frazier LYMPH # 2.4 103/ul Normal 1.2-3.8 The [facility] Comment on above: Performed By: #### C BC ####[facility] Dumvuvculs[address] [place], [place] [address]DrNancy Frazier Lymphocytes/100 WBC (Bld) 25.5 % Normal 20.5-60.0 The [facility] Comment on above: Performed By: #### C BC ####[facility] Ywrtdfuimx[address] [place], [place] [address]DrNancy Frazier MANUAL DIFF REQ NO Normal [facility] Comment on above: Performed By: #### C BC ####[facility] Hsupbacbgo0063 [place] [address]DrNancy Frazier MCH (RBC) [Entitic mass] 28.5 pg Normal 25.9-34.0 [facility] Comment on above: Performed By: #### C BC ####[facility] Rhkfituakl3702 [place] [address]Dr. Chrissy Frazier MCHC (RBC) [Mass/Vol] 33.4 g/dL Normal 29.9-35.2 [facility] Comment on above: Performed By: #### C BC ####[facility] Diqtyfaczw9956 [place] [address]Dr. Chrissy Frazier MCV (RBC) [Entitic vol] 85.3 fL Normal 80.0-94.0 [facility] Comment on above: Performed By: #### C BC ####[facility] Bpkjwgmgtn[address] [place], [place] [address]DrNancy Frazier MONO # 0.7 103/ul Normal 0.3-0.8 The [facility] Comment on above: Performed By: #### C BC ####[facility] Wrwikpczoe[address] [place], [place] [address]Dr. Chrissy Frazier Monocytes/100 WBC (Bld) 7.8 % Normal 1.7-12.0 The [facility] Comment on above: Performed By: #### C BC ####[facility] Maqwmlufex[address] [place], [place] [address]Dr. Chrissy Frazier NEUT # 5.8 103/ul Normal 1.4-6.5 The [facility] Comment on above: Performed By: #### C BC ####[facility] [address]jwjevtovd[address] [place], [place] [address]Dr. Chrissy Frazier Neutrophils/100 WBC (Bld) 62.8 % Normal 43.0-75.0 The [facility] Comment on above: Performed By: #### C BC ####[facility] Eqztgpnwkk[address] [place], [place] [address]Dr. Chrissy Frazier Platelet mean volume (Bld) [Entitic vol] 10.8 fL Normal 9.5-13.5 The [facility] Comment on above: Performed By: #### C BC ####[facility] Ysiwucjpku[address] [place], [place] [address]Dr. Chrissy Frazier PLT 310 103/ul Normal 150-450 The [facility] Comment on above: Performed By: #### C BC ####[facility] Qhdyzsicdi4660 [place] [phone]. Chrissy Frazier RBC 5.02 106/ul Normal 4.70-6.10 The [facility] Comment on above: Performed By: #### C BC ####[facility] Mltotmuyud2495 [place], [place] [address]Xk. Chrissy Frazier WBC 9.3 103/ul Normal 4.0-11.0 [facility] Comment on above: Performed By: #### C BC ####[facility] Uupaucymog[address] [place] [phone]. Tishrowan Freddie CULTURE URINEon 07-07-2022 CULTURE URINE Culture Observations: NO GROWTH. Normal The [facility] Comment on above: Performed By: #### U RCX ####[facility] Fqkunqozjo[address] [place] [phone]. Chrissy Frazier DRUG SCREEN RAPID (URINE)on 07-07-2022 AMP Negative Normal NEGATIVE [facility] Comment on above: Performed By: #### D RUGRPD ####[facility] Vbodnlycmg380[address] [place] [phone]. Chrissy Frazier BAR Negative Normal NEGATIVE [facility] Comment on above: Performed By: #### D RUGRPD ####[facility] Dunirnlpid4822 [place] [phone]. Chrissy Frazier BUP Negative Normal NEGATIVE The [facility] Comment on above: Performed By: #### D RUGRPD ####[facility] Lrfubquchp5346 [place] [address]Dr. Chrissy Frazier BZO Positive Abnormal NEGATIVE The [facility] Comment on above: Performed By: #### D RUGRPD ####[facility] Djpprxqkvu0359 [place] [phone]. Chrissy Frazier LAUREN Negative Normal NEGATIVE The [facility] Comment on above: Performed By: #### D RUGRPD ####[facility] Pyjjnbwoub8142 [place] [phone]. Chrissy Frazier CUT-OFFS SEE BELOW Normal The [facility] Comment on above: Result Comment: AMP (Amphetamine): 500ng/mL, BAR (Barbituates): 200 ng/mL, BZO (Benzodiazepines): 150 ng/mL, BUP (Buprenorphine): 10 ng/mL, LAUREN (Cocaine): 150 ng/mL, mAMP (Methamphetamine): 500 ng/mL, MTD (Methadone): 200 ng/mL, OPI (Opiates): 100 ng/mL, OXY (Oxycodone): 100 ng/mL, PCP (Phencyclidine): 25 ng/mL, PPX (Propoxyphene): 300 ng/mL, THC (Cannabinoids): 50 ng/mL, TCA (Trycyclic Antidepressants): 300 ng/mL Performed By: #### D RUGRPD ####[facility] Cjaxhwrmfd[address] [place], [place] [address]Dr[address] [facility] DRUG CUT HEADER DRUG CLASS TEST SYSTEM CUT-OFF CONCENTRATIONS ARE FOLLOWS: Normal The [facility] Comment on above: Performed By: #### D RUGRPD ####[facility] Xhasprmudj157[address] [place], [place] [address]Dr. Tishrowan [facility] mAMP Negative Normal NEGATIVE The [facility] Comment on above: Performed By: #### D RUGRPD ####[facility] Shotlwggcp90750[address] [place], [place] [address]Dr. Chrissy [facility] MTD Negative Normal NEGATIVE The [facility] Comment on above: Performed By: #### D RUGRPD ####[facility] Borjeyblfn[address] [place], [place] [address]Dr. Chrissy [facility] OPI Negative Normal NEGATIVE The [facility] Comment on above: Performed By: #### D RUGRPD ####[facility] Uogsqlmobo7299[address] [place], [place] [address]Dr. Chrissy Frazier OXY Negative Normal NEGATIVE The [facility] Comment on above: Performed By: #### D RUGRPD ####[facility] Aewqfdrjiz804[address] [place], [place] [address]Dr. Chrissy [facility] PCP Negative Normal NEGATIVE The [facility] Comment on above: Performed By: #### D RUGRPD ####[facility] Bjaksytwnj[address] [place], [place] [id number]. Chrissy Freddie PPX Negative Normal NEGATIVE The [facility] Comment on above: Performed By: #### D RUGRPD ####[facility] Uadfaqcxlc[address] [place] [address]Dr. Chrissy Freddie TCA Positive Abnormal NEGATIVE The [facility] Comment on above: Performed By: #### D RUGRPD ####[facility] Bhidxtvvos0216 [place] [address]Dr. Chrissy Freddie THC Positive Abnormal NEGATIVE The [facility] Comment on above: Performed By: #### D RUGRPD ####[facility] Xhmduorixc4490 [place] [address]Dr. Tishrowan Frazier LIPASEon 07-07-2022 Lipase [Catalytic activity/Vol] 118.0 U/L Normal 73.0-393.0 [facility] Comment on above: Performed By: #### L IPA ####[facility] Ssulsjizyt9[address] [place], [place] [address]Dr. Chrissy Frazier Lipase [Catalytic activity/Vol] 114.0 U/L Normal 73.0-393.0 [facility] Comment on above: Performed By: #### C MP, TERRENCE, BNP, LIPA ####[facility] Erlyqwtgyx318507 [address] [place], [place] [address]Dr. Chrissy Frazier PROF 14(COMP METB)on 022 Albumin [Mass/Vol] 3.4 g/dL Normal 3.4-5.0 [facility] Comment on above: Performed By: #### C MP, TERRENCE, BNP, LIPA ####[facility] Qknsukdfne9[address] [place] [address]Dr. Chrissy Frazier Albumin/Globulin [Mass ratio] 1.1 {ratio} Normal [facility] Comment on above: Performed By: #### C MP, TERRENCE, BNP, LIPA ####[facility] Jcubqtbpzl37[address] [place] [address]Dr. Chrissy Frazier ALP [Catalytic activity/Vol] 68 U/L Normal 46-116 The [facility] Comment on above: Performed By: #### C MP, TERRENCE, BNP, LIPA ####[facility] Dinzhwgcap9695 [place] [address]Dr. Chrissy Frazier ALT [Catalytic activity/Vol] 93 U/L Critically high 16-63 The [facility] Comment on above: Performed By: #### C MP, TERRENCE, BNP, LIPA ####[facility] Hprtdstjgs8990 [place] [address]Dr. Chrissy Frazier Anion gap [Moles/Vol] 14.4 mmol/L Normal The [facility] Comment on above: Performed By: #### C MP, TERRENCE, BNP, LIPA ####[facility] Kaodeyxbxl9032 [place] [address]Dr. Chrissy Frazier AST [Catalytic activity/Vol] 33 U/L Normal 15-37 The [facility] Comment on above: Performed By: #### C MP, TERRENCE, BNP, LIPA ####[facility] Wqlhpzfwsi7737 [place] [address]Dr. Chrissy Frazier Bilirubin [Mass/Vol] 0.9 mg/dL Normal 0.2-1.0 [facility] Comment on above: Performed By: #### C MP, TERRENCE, BNP, LIPA ####[facility] Jgtwdljdeo801[address] [place], [place] [address]Dr. Chrissy Frazier Calcium [Mass/Vol] 8.2 mg/dL Critically low 8.5-10.1 Th e [facility] Comment on above: Performed By: #### C MP, TERRENCE, BNP, LIPA ####[facility] Rnnbcrbrwh20[address] [place], [place] [address]Dr. Chrissy Frazier Chloride [Moles/Vol] 103 mmol/L Normal 98-107 The [facility] Comment on above: Performed By: #### C MP, TERRENCE, BNP, LIPA ####[facility] Cylgpxyfki158[address] [place], [place] [address]Dr. Chrissy Frazier CO2 [Moles/Vol] 22.9 mmol/L Normal 21.0-32.0 The [facility] Comment on above: Performed By: #### C MP, TERRENCE, BNP, LIPA ####[facility] Ncjkdlzwhe65220[address] [place], [place] [address]Dr. Chrissy Frazier Creatinine [Mass/Vol] 1.07 mg/dL Normal 0.70-1.30 The [facility] Comment on above: Performed By: #### C MP, TERRENCE, BNP, LIPA ####[facility] Yrksrrgkyy[address] [place] [address]Dr. Chrissy Frazier EGFR-AF SLOVAK >60 Normal >=60 The [facility] Comment on above: Performed By: #### C MP, TERRENCE, BNP, LIPA ####[facility] Gpeuicampq59[address] [place] [address]Dr. Chrissy Frazier EGFR-NON AF SLOVAK >60 Normal >=60 The [facility] Comment on above: Performed By: #### C MP, TERRENCE, BNP, LIPA ####[facility] Xvcdgeaodh4859 [place] [address]Dr. Chrissy Frazier Globulin (S) [Mass/Vol] 3.2 g/dL Normal The [facility] Comment on above: Performed By: #### C MP, TERRENCE, BNP, LIPA ####[facility] Zhcpwgrhrn20000[address] [place], [place] [address]Dr. Chrissy Frazier Glucose [Mass/Vol] 96 mg/dL Normal 74-106 The [facility] Comment on above: Performed By: #### C MP, TERRENCE, BNP, LIPA ####[facility] Zzdwglafxe6405 [place] [address]Dr. Chrissy Frazier Potassium [Moles/Vol] 3.3 mmol/L Critically low 3.5-5.1 The [facility] Comment on above: Performed By: #### C MP, TERRENCE, BNP, LIPA ####[facility] Sbazpglbfu7144 [place] [address]Dr. Chrissy Frazier Protein [Mass/Vol] 6.6 g/dL Normal 6.4-8.2 The [facility] Comment on above: Performed By: #### C MP, TERRENCE, BNP, LIPA ####[facility] Wzhbgnmmhq8242 [place] [address]Dr. Chrissy Frazier Sodium [Moles/Vol] 137 mmol/L Normal 136-145 The [facility] Comment on above: Performed By: #### C MP, TERRENCE, BNP, LIPA ####[facility] Oqceyzfofy858[address] [place], [place] [address]Dr. Chrissy Frazier Urea nitrogen [Mass/Vol] 13.0 mg/dL Normal 7.0-18.0 [facility] Comment on above: Performed By: #### C MP, TERRENCE, BNP, LIPA ####[facility] Hyuzcerdjw199307 [address] [place], [place] [address]Dr. Chrissy Frazier Urea nitrogen/Creatinine [Mass ratio] 12.1 mg/mg Normal [facility] Comment on above: Performed By: #### C MP, TERRNECE, BNP, LIPA ####[facility] Ajjewxudhi2739[address] [place], [place] [address]Dr. Chrissy Frazier UA RANDOM W/MICROSCOPICon BACTERIA TRACE Abnormal NONE SEEN [facility] Comment on above: Performed By: #### U AMIC ####[facility] Ucnlmiepqw839407 [address] [place], [place] [address]Dr. Chrissy Frazier Bilirubin Ql (U) Negative Normal NEGATIVE The [facility] Comment on above: Performed By: #### U AMIC ####[facility] Pockxuoszg984[address] [place], [place] [address]Dr. Chrissy Frazier CAST NONE SEEN Normal NONE SEEN [facility] Comment on above: Performed By: #### U AMIC ####[facility] Pebnpffepf679207 [address] [place], [place] [address]Dr. Chrissy Frazier Clarity (U) CLEAR Normal CLEAR The [facility] Comment on above: Performed By: #### U AMIC ####[facility] Qgvxovyycn819007 [address] [place], [place] [address]Dr. Chrissy Frazier Color (U) YELLOW Normal YELLOW The [facility] Comment on above: Performed By: #### U AMIC ####[facility] Cnptfgkxpp788907 [address] [place], [place] [address]Dr. Chrissy Frazier Crystals LM Nom (Urine sed) SEEN Abnormal NONE SEEN [facility] Comment on above: Performed By: #### U AMIC ####[facility] Syqhcprbif0716[address] [place], [place] [address]Dr. Chrissy Frazier Epithelial cells LM Ql (Urine sed) RARE Normal NONE SEEN /RARE The [facility] Comment on above: Performed By: #### U AMIC ####[facility] Pujwlfgtup4832 [place] [address]Dr. Chrissy Frazier Glucose Ql (U) Negative Normal NEGATIVE The [facility] Comment on above: Performed By: #### U AMIC ####[facility] Yjvmptyrdp612[address] [place], [place] [address]Dr. Chrissy Frazier Hemoglobin Ql (U) Negative Normal NEGATIVE The [facility] Comment on above: Performed By: #### U AMIC ####[facility] Dmnevvqeya302[address] [place], [place] [address]Dr. Chrissy Frazier Ketones Ql (U) 15 mg/dl Abnormal NEGATIVE The [facility] Comment on above: Performed By: #### U AMIC ####[facility] Feynbiexwq5817[address] [place], [place] [address]Dr. Chrissy Frazier LEUKOCYTES Negative Normal NEGATIVE The [facility] Comment on above: Performed By: #### U AMIC ####[facility] Zgogfseyoa4514[address] [place], [place] [address]Dr. Chrissy Frazier MUCOUS NONE SEEN Normal NONE SEEN The [facility] Comment on above: Performed By: #### U AMIC ####[facility] Cnwawbzget117[address] [place], [place] [address]Dr. Chrissy Frazier Nitrite Ql (U) Negative Normal NEGATIVE The [facility] Comment on above: Performed By: #### U AMIC ####[facility] Sfpzxbdjwz233[address] [place], [place] [address]Dr. Chrissy Frazier pH (U) 6.0 [pH] Normal 5-9 The [facility] Comment on above: Performed By: #### U AMIC ####[facility] Qtknzmhcio172707 [address] [place], [place] [address]Dr. Chrissy Frazier RBC 0-2 Normal 0-2 The [facility] Comment on above: Performed By: #### U AMIC ####[facility] Ilqbnowkkh281907 [address] [place], [place] [address]Dr. Chrissy Frazier SPEC GRAVITY 1.015 Normal 1.005-<=1.025 The [facility] Comment on above: Performed By: #### U AMIC ####[facility] Brcinxhcke1935 [place] [address]Dr. Chrissy Frazier UA PROTEIN Negative Normal NEGATIVE/ TRACE The [facility] Comment on above: Performed By: #### U AMIC ####[facility] Oisdjwprbo4785 [place] [address]Dr. Chrissy Frazier URIC ACID CRYSTALS RARE Normal The [facility] Comment on above: Performed By: #### U AMIC ####[facility] Bxdjmxwqvr7073 [place] [address]Dr. Chrissy Freddie Urobilinogen Qn (U) 0.2 {Estrellita'U}/dL Normal 0.2 - 1. 0 [facility] Comment on above: Performed By: #### U AMIC ####[facility] Atgmpqfirx477707 [address] [place], [place] [address]Dr. Tishrowan Frazier WBC 0-2 Abnormal NONE SEEN The [facility] Comment on above: Performed By: #### U AMIC ####[facility] Avjhcqpofx45[address] [place], [place] [address]Dr. Chrissy Freddie AMYLASEon 07-06-2022 Amylase [Catalytic activity/Vol] 37 U/L Normal 25-115 [facility] Comment on above: Performed By: #### C MP, LIPA, TERRENCE ####[facility] Cpvxsiybwa417[address] [place], [place] [address]Dr. Chrissy Frazier CBC AUTO DIFFon 07-06-2022 BASO # 0.1 103/ul Normal 0.0-0.1 [facility] Comment on above: Performed By: #### C BC ####[facility] Hksmminmwf538407 [address] [place], [place] [address]Dr. Tishrowan Frazier Basophils/100 WBC (Bld) 0.4 % Normal 0.2-2.0 [facility] Comment on above: Performed By: #### C BC ####[facility] Qvbpkexuve459507 [address] [place], [place] [address]Dr. Chrissy Frazier EO # 0.1 103/ul Normal 0.0-0.7 The [facility] Comment on above: Performed By: #### C BC ####[facility] Xovmrsxzxb8175 [place] [address]Dr. Chrissy Frazier Eosinophils/100 WBC (Bld) 0.5 % Critically low 0.9-7.0 [facility] Comment on above: Performed By: #### C BC ####[facility] Usuejrmavv806807 [address] [place], [place] [address]Dr. Chrissy Frazier Erythrocyte distribution width (RBC) [Ratio] 13.6 % Normal 11.0-15.0 [facility] Comment on above: Performed By: #### C BC ####[facility] Mygdnvkvbn313[address] [place], [place] [address]Dr. Chrissy Frazier Hematocrit (Bld) [Volume fraction] 47.9 % Normal 42.0-54.0 [facility] Comment on above: Performed By: #### C BC ####[facility] Cmcwqfpjzk8413[address] [place], [place] [address]Dr. Chrissy Frazier Hemoglobin (Bld) [Mass/Vol] 16.4 g/dL Normal 14.0-18.0 The [facility] Comment on above: Performed By: #### C BC ####[facility] Vjndxkzpqd560607 [address] [place], [place] [address]Dr. Chrissy Frazier IG # 0.09 10e3/ul Critically high 0.00-0.03 [facility] Comment on above: Performed By: #### C BC ####[facility] Qijvjpjtoy269507 [address] [place], [place] [address]Dr. Chrissy Frazier IG % 0.6 % Critically high 0.0-0.5 The [facility] Comment on above: Performed By: #### C BC ####[facility] Qvfferlmjb560207 [address] [place], [place] [address]Dr. Chrissy Frazier LYMPH # 2.5 103/ul Normal 1.2-3.8 The [facility] Comment on above: Performed By: #### C BC ####[facility] Gjewhsstqx1813[address] [place], [place] [address]Dr. Chrissy Frazier Lymphocytes/100 WBC (Bld) 16.7 % Critically low 20.5-60.0 The [facility] Comment on above: Performed By: #### C BC ####[facility] Ayqndsefnl1576 [place] [address]DrNancy Frazier MANUAL DIFF REQ NO Normal The [facility] Comment on above: Performed By: #### C BC ####[facility] Dmkqpsnluy1796 [place] [address]DrNancy Frazier MCH (RBC) [Entitic mass] 28.1 pg Normal 25.9-34.0 The [facility] Comment on above: Performed By: #### C BC ####[facility] Bjxgivxhsg7937[address] [place], [place] [address]DrNancy Frazier MCHC (RBC) [Mass/Vol] 34.2 g/dL Normal 29.9-35.2 The [facility] Comment on above: Performed By: #### C BC ####[facility] Rgyvfahkhg5569[address] [place], [place] [address]DrNancy Frazier MCV (RBC) [Entitic vol] 82.2 fL Normal 80.0-94.0 The [facility] Comment on above: Performed By: #### C BC ####[facility] Cpufeihcfv85300[address] [place], [place] [address]DrNancy Frazier MONO # 1.0 103/ul Critically high 0.3-0.8 The [facility] Comment on above: Performed By: #### C BC ####[facility] Kzbdnpxwnd7316[address] [place], [place] [address]DrNancy Frazier Monocytes/100 WBC (Bld) 6.7 % Normal 1.7-12.0 The [facility] Comment on above: Performed By: #### C BC ####[facility] Ulfwyaotnp734[address] [place], [place] [address]DrNancy Frazier NEUT # 11.3 103/ul Critically high 1.4-6.5 The [facility] Comment on above: Performed By: #### C BC ####[facility] Bufkrfolyp4024[address] [place], [place] [address]DrNancy Frazier Neutrophils/100 WBC (Bld) 75.1 % Critically high 43.0-75.0 The [facility] Comment on above: Performed By: #### C BC ####[facility] Alwdkmairw35[address] [place] [id number]. Chrissy Frazier Platelet mean volume (Bld) [Entitic vol] 10.6 fL Normal 9.5-13.5 The [facility] Comment on above: Performed By: #### C BC ####[facility] Hqgwkzbved7[address] [place] [address]Dr. Chrissy Frazier PLT 416 103/ul Normal 150-450 The [facility] Comment on above: Performed By: #### C BC ####[facility] Zmovrzoagr9997 [place] [address]Dr. Chrissy Frazier RBC 5.83 106/ul Normal 4.70-6.10 The [facility] Comment on above: Performed By: #### C BC ####[facility] Kchaxlqwsa7144 [place] [address]Dr. Chrissy Frazier WBC 15.0 103/ul Critically high 4.0-11.0 The [facility] Comment on above: Performed By: #### C BC ####[facility] Cpfzolsfzc9[address] [place] [phone]. Chrissy Frazier [facility] SARS-CoV-2 (COVID-19) RNA RHIANNON+probe Ql (Unsp spec) Not detected Normal NOT DETECTED The [facility] Comment on above: Result Comment: When diagnostic [...] for this test is supported by the [employer] and Human Service's declaration that [...] be used). Performed By: #### C VDTBH ####[facility] Vvtarqspch4[address] [place] [address]Dr. Chrissy Frazier LIPASEon 07-06-2022 Lipase [Catalytic activity/Vol] 130.0 U/L Normal 73.0-393.0 [facility] Comment on above: Performed By: #### C OSWALD ADAIR, TERRENCE ####[facility] Lkkwzcmihs6[address] [place] [address]Dr. Chrissy Frazier PROF 14(COMP METB)on 022 Albumin [Mass/Vol] 4.4 g/dL Normal 3.4-5.0 [facility] Comment on above: Performed By: #### C MANA LIPA, TERRENCE ####[facility] Shdwknryja046207 [address] [place], [place] [address]Dr. Chrissy Frazier Albumin/Globulin [Mass ratio] 1.1 {ratio} Normal [facility] Comment on above: Performed By: #### C OSWALD ADAIR TERRENCE ####[facility] Woyoqlehnq08360[address] [place], [place] [address]Dr. Chrissy Frazier ALP [Catalytic activity/Vol] 83 U/L Normal 46-116 [facility] Comment on above: Performed By: #### C MANA LIPA, TERRENCE ####[facility] Hqmtrnlpsu7674 [place] [address]Dr. Chrissy Frazier ALT [Catalytic activity/Vol] 107 U/L Critically high 16-63 [facility] Comment on above: Performed By: #### C TESSA ADAIRA, TERRENCE ####[facility] Ihiszkqdiq4749 [place] [address]Dr. Chrissy Frazier Anion gap [Moles/Vol] 20.5 mmol/L Normal [facility] Comment on above: Performed By: #### C MANA LIPA, TERRENCE ####[facility] Gnsrfyfkbp086[address] [place], [place] [address]Dr. Chrissy Frazier AST [Catalytic activity/Vol] 46 U/L Critically high 15-37 The [facility] Comment on above: Performed By: #### C OSWALD ADAIR, TERRENCE ####[facility] Dlsukisyeg6329 [place] [address]Dr. Chrissy Frazier Bilirubin [Mass/Vol] 1.2 mg/dL Critically high 0.2-1.0 [facility] Comment on above: Performed By: #### C TESSA ADAIRA, TERRENCE ####[facility] Efvxpbefbg[address] [place], [place] [address]Dr. Chrissy Frazier Calcium [Mass/Vol] 9.1 mg/dL Normal 8.5-10.1 The [facility] Comment on above: Performed By: #### C MANA LIPA, TERRENCE ####[facility] Rtkuthaxzd268[address] [place], [place] [address]Dr. Chrissy Frazier Chloride [Moles/Vol] 100 mmol/L Normal 98-107 The [facility] Comment on above: Performed By: #### C TESSA ADAIRA, TERRENCE ####[facility] Tzitxgyaxz838[address] [place], [place] [address]Dr. Chrissy Frazier CO2 [Moles/Vol] 18.6 mmol/L Critically low 21.0-32.0 [facility] Comment on above: Performed By: #### C MANA LIPA, TERRENCE ####[facility] Ipkjkokivp[address] [place], [place] [address]Dr. Chrissy Frazier Creatinine [Mass/Vol] 1.44 mg/dL Critically high 0.70-1.30 [facility] Comment on above: Performed By: #### C MANA LIPA, TERRENCE ####[facility] Tmgvfjibdu[address] [place], [place] [address]Dr. Chrissy Frazier EGFR-AF SLOVAK >60 Normal >=60 [facility] Comment on above: Performed By: #### C MP, LIPA, TERRENCE ####[facility] Hwtucnbtzc[address] [place], [place] [address]Dr. Chrissy Frazier EGFR-NON AF SLOVAK 57 mL/min/1.73m2 Critically low >=60 The [facility] Comment on above: Performed By: #### C MANA LIPA, TERRENCE ####[facility] Fxpgkwutla20[address] [place] [address]Dr. Chrissy Frazier Globulin (S) [Mass/Vol] 4.0 g/dL Normal [facility] Comment on above: Performed By: #### C MANA LIPA, TERRENCE ####[facility] Uxwpjawwrx4744 [place] [address]Dr. Chrissy Frazier Glucose [Mass/Vol] 117 mg/dL Critically high 74-106 [facility] Comment on above: Performed By: #### C MANA LIPA, TERRENCE ####[facility] Yadkvfqnwl404[address] [place], [place] [address]Dr. Chrissy Frazier Potassium [Moles/Vol] 3.1 mmol/L Critically low 3.5-5.1 [facility] Comment on above: Performed By: #### C MANA LIPA, TERRENCE ####[facility] Knncuamcxh17[address] [place], [place] [address]Dr. Chrissy Frazier Protein [Mass/Vol] 8.4 g/dL Critically high 6.4-8.2 [facility] Comment on above: Performed By: #### C TESSA ADAIRA, TERRENCE ####[facility] Qrziwnofin126[address] [place], [place] [address]Dr. Chrissy Frazier Sodium [Moles/Vol] 136 mmol/L Normal 136-145 [facility] Comment on above: Performed By: #### C MANA LIPA, TERRENCE ####[facility] Wfgrwevaxr433[address] [place], [place] [address]Dr. Chrissy Frazier Urea nitrogen [Mass/Vol] 15.0 mg/dL Normal 7.0-18.0 [facility] Comment on above: Performed By: #### C MANA LIPA, TERRENCE ####[facility] Egseqprvpu214[address] [place], [place] [address]Dr. Chrissy Frazier Urea nitrogen/Creatinine [Mass ratio] 10.4 mg/mg Normal [facility] Comment on above: Performed By: #### C MANA LIPA, TERRENCE ####[facility] Skwinjomcs[address] [place] [address]Dr. Chrissy Freddie CBC AUTO DIFFon 07-05-2022 BASO # 0.0 103/ul Normal 0.0-0.1 [facility] Comment on above: Performed By: #### C BC ####[facility] Hdhldfheva[address] [place], [place] [id number]. Chrissy Frazier Basophils/100 WBC (Bld) 0.3 % Normal 0.2-2.0 [facility] Comment on above: Performed By: #### C BC ####[facility] Gimtugwnyy627[address] [place], [place] [address]Dr. Chrissy Frazier EO # 0.2 103/ul Normal 0.0-0.7 [facility] Comment on above: Performed By: #### C BC ####[facility] Mzdoqbwksn384[address] [place], [place] [address]Dr. Chrissy Frazier Eosinophils/100 WBC (Bld) 1.5 % Normal 0.9-7.0 [facility] Comment on above: Performed By: #### C BC ####[facility] Ntlhbmmstr137[address] [place], [place] [address]Dr. Tishrowan Frazier Erythrocyte distribution width (RBC) [Ratio] 13.9 % Normal 11.0-15.0 [facility] Comment on above: Performed By: #### C BC ####[facility] Hhcgnhzova847[address] [place], [place] [address]Dr. Chrissy Frazier Hematocrit (Bld) [Volume fraction] 44.5 % Normal 42.0-54.0 [facility] Comment on above: Performed By: #### C BC ####[facility] Lfqmjulwuq668[address] [place], [place] [address]Dr. Chrissy Frazier Hemoglobin (Bld) [Mass/Vol] 14.8 g/dL Normal 14.0-18.0 [facility] Comment on above: Performed By: #### C BC ####[facility] Peypqotrrp[address] [place], [place] [address]Dr. Chrissy Frazier IG # 0.05 10e3/ul Critically high 0.00-0.03 [facility] Comment on above: Performed By: #### C BC ####[facility] Jtorkxpiyj[address] [place] [phone]. Chrissy Frazier IG % 0.4 % Normal 0.0-0.5 [facility] Comment on above: Performed By: #### C BC ####[facility] Qfpxwebpsg8703 [place] [phone]. Chrissy Frazier LYMPH # 3.3 103/ul Normal 1.2-3.8 [facility] Comment on above: Performed By: #### C BC ####[facility] Wdoprlrxuw8155 [place] [phone]. Chrissy Frazier Lymphocytes/100 WBC (Bld) 29.1 % Normal 20.5-60.0 [facility] Comment on above: Performed By: #### C BC ####[facility] Qzpvuqiaem364[address] [place] [address]Dr. Chrissy Frazier MANUAL DIFF REQ NO Normal [facility] Comment on above: Performed By: #### C BC ####[facility] Zcqdmdnbxo08[address] [place] [phone]. Chrissy Frazier MCH (RBC) [Entitic mass] 28.2 pg Normal 25.9-34.0 [facility] Comment on above: Performed By: #### C BC ####[facility] Iofgghyjid76[address] [place] [phone]. Chrissy Frazier MCHC (RBC) [Mass/Vol] 33.3 g/dL Normal 29.9-35.2 [facility] Comment on above: Performed By: #### C BC ####[facility] Tuzewqczte50[address] [place] [phone]. Chrissy Frazier MCV (RBC) [Entitic vol] 84.9 fL Normal 80.0-94.0 [facility] Comment on above: Performed By: #### C BC ####[facility] Yjcbcenyoi46[address] [place] [phone]. Chrissy Freddie MONO # 0.6 103/ul Normal 0.3-0.8 [facility] Comment on above: Performed By: #### C BC ####[facility] Cqjpyujxbe5634 [place] [phone]. Chrissy Frazier Monocytes/100 WBC (Bld) 5.4 % Normal 1.7-12.0 [facility] Comment on above: Performed By: #### C BC ####[facility] Yrxvecmhyw11[address] [place] [phone]. Chrissy Frazier NEUT # 7.1 103/ul Critically high 1.4-6.5 [facility] Comment on above: Performed By: #### C BC ####[facility] Qqtncxtmwc2616 [place] [phone]. Chrissy Frazier Neutrophils/100 WBC (Bld) 63.3 % Normal 43.0-75.0 [facility] Comment on above: Performed By: #### C BC ####[facility] Zkqsswezaq0527 [place] [address]Dr. Chrissy Frazier Platelet mean volume (Bld) [Entitic vol] 9.9 fL Normal 9.5-13.5 [facility] Comment on above: Performed By: #### C BC ####[facility] Yfqyqdgiza79[address] [place] [address]Dr. Chrissy Freddie PLT 339 103/ul Normal 150-450 [facility] Comment on above: Performed By: #### C BC ####[facility] Qulzwdnvfc5661 [place] [phone]. Tishrowan Frazier RBC 5.24 106/ul Normal 4.70-6.10 [facility] Comment on above: Performed By: #### C BC ####[facility] Xwmmwdxpah4537 [place] [phone]. Chrissy Frazier WBC 11.2 103/ul Critically high 4.0-11.0 [facility] Comment on above: Performed By: #### C BC ####[facility] Ggqonrudpv2[address] [place] [address]Dr. Chrissy Frazier PROF 14(COMP METB)on 022 Albumin [Mass/Vol] 3.8 g/dL Normal 3.4-5.0 [facility] Comment on above: Performed By: #### C MP ####[facility] Dbbvdtgljf1264 [place] [phone]. Chrissy Freddie Albumin/Globulin [Mass ratio] 1.1 {ratio} Normal [facility] Comment on above: Performed By: #### C MP ####[facility] Styliewvfs[address] [place] [phone]. Chrissy Freddie ALP [Catalytic activity/Vol] 67 U/L Normal 46-116 [facility] Comment on above: Performed By: #### C MP ####[facility] Iagigjjjbv0864 [place] [address]Dr. Chrissy Freddie ALT [Catalytic activity/Vol] 75 U/L Critically high 16-63 [facility] Comment on above: Performed By: #### C MP ####[facility] Nzrfilnink4420 [place] [address]Dr. Chrissy Frazier Anion gap [Moles/Vol] 14.3 mmol/L Normal [facility] Comment on above: Performed By: #### C MP ####[facility] Zddzfaubej9737 [place] [address]Dr. Chrissy Freddie AST [Catalytic activity/Vol] 40 U/L Critically high 15-37 [facility] Comment on above: Performed By: #### C MP ####[facility] Admghhtvkp67[address] [place] [address]Dr. Chrissy Frazier Bilirubin [Mass/Vol] 0.9 mg/dL Normal 0.2-1.0 [facility] Comment on above: Performed By: #### C MP ####[facility] Lmqjizeens7394 [place] [phone]. Chrissy Frazier Calcium [Mass/Vol] 8.4 mg/dL Critically low 8.5-10.1 [facility] Comment on above: Performed By: #### C MP ####[facility] Ciyqbsarot3097 [place] [address]Dr. Chrissy Frazier Chloride [Moles/Vol] 104 mmol/L Normal 98-107 [facility] Comment on above: Performed By: #### C MP ####[facility] Kvhtbevoke75[address] [place] [phone]. Chrissy Frazier CO2 [Moles/Vol] 24.1 mmol/L Normal 21.0-32.0 [facility] Comment on above: Performed By: #### C MP ####[facility] Kpufvdmkre2266 [place] [phone]. Chrissy Frazier Creatinine [Mass/Vol] 1.11 mg/dL Normal 0.70-1.30 [facility] Comment on above: Performed By: #### C MP ####[facility] Tyylvpvmrq1901 [place] [phone]. Chrissy Frazier EGFR-AF SLOVAK >60 Normal >=60 [facility] Comment on above: Performed By: #### C MP ####[facility] Hjjocdvxwp1820 [place] [address]Dr. Chrissy Frazier EGFR-NON AF SLOVAK >60 Normal >=60 [facility] Comment on above: Performed By: #### C MP ####[facility] Wkowfrztyg808[address] [place], [place] [address]Dr. Chrissy Frazier Globulin (S) [Mass/Vol] 3.6 g/dL Normal [facility] Comment on above: Performed By: #### C MP ####[facility] Cubjllwqqo7[address] [place], [place] [address]Dr. Chrissy Frazier Glucose [Mass/Vol] 89 mg/dL Normal 74-106 [facility] Comment on above: Performed By: #### C MP ####[facility] Zpuwmvyxqq4018 [place] [address]Dr. Chrissy Frazier Potassium [Moles/Vol] 3.4 mmol/L Critically low 3.5-5.1 The [facility] Comment on above: Performed By: #### C MP ####[facility] Gofqhkvtwy[address] [place], [place] [address]Dr. Chrissy Freddie Protein [Mass/Vol] 7.4 g/dL Normal 6.4-8.2 [facility] Comment on above: Performed By: #### C MP ####[facility] Qjdamrqdnv220[address] [place], [place] [address]Dr. Chrissy Frazier Sodium [Moles/Vol] 139 mmol/L Normal 136-145 [facility] Comment on above: Performed By: #### C MP ####[facility] Vzmuxztusg[address] [place], [place] [address]Dr. Chrissy Frazier Urea nitrogen [Mass/Vol] 10.0 mg/dL Normal 7.0-18.0 [facility] Comment on above: Performed By: #### C MP ####[facility] Jgngnbnuks[address] [place], [place] [address]Dr. Chrissy Frazier Urea nitrogen/Creatinine [Mass ratio] 9.0 mg/mg Normal [facility] Comment on above: Performed By: #### C MP ####[facility] Xtnpfkonwj[address] [place], [place] [address]Dr. Chrissy Frazier CBC AUTO DIFFon 07-04-2022 BASO # 0.0 103/ul Normal 0.0-0.1 [facility] Comment on above: Performed By: #### C BC ####[facility] Tmdjtiqcxl[address]19[address] [place], [place] [address]Dr. Chrissy Freddie Basophils/100 WBC (Bld) 0.2 % Normal 0.2-2.0 [facility] Comment on above: Performed By: #### C BC ####[facility] V[address]zqmfmwea8[address] [place], [place] [address]Dr. Chrissy Frazier EO # 0.0 103/ul Normal 0.0-0.7 [facility] Comment on above: Performed By: #### C BC ####[facility] Crpidxsftq[address] [place], [place] [address]Dr. Chrissy Freddie Eosinophils/100 WBC (Bld) 0.3 % Critically low 0.9-7.0 [facility] Comment on above: Performed By: #### C BC ####[facility] Lrjogimord9[address] [place], [place] [address]Dr. Chrissy Frazier Erythrocyte distribution width (RBC) [Ratio] 14.0 % Normal 11.0-15.0 [facility] Comment on above: Performed By: #### C BC ####[facility] Bbmscypegt9273 [place] [address]Dr. Chrissy Frazier Hematocrit (Bld) [Volume fraction] 43.2 % Normal 42.0-54.0 [facility] Comment on above: Performed By: #### C BC ####[facility] Kbksugswgw0535 [place] [address]Dr. Chrissy Frazier Hemoglobin (Bld) [Mass/Vol] 14.6 g/dL Normal 14.0-18.0 [facility] Comment on above: Performed By: #### C BC ####[facility] Llewpckzue33[address] [place] [address]Dr. Tishrowan Freddie IG # 0.11 10e3/ul Critically high 0.00-0.03 [facility] Comment on above: Performed By: #### C BC ####[facility] Oecoruclgq6608 [place] [address]Dr. Chrissy Frazier IG % 0.8 % Critically high 0.0-0.5 [facility] Comment on above: Performed By: #### C BC ####[facility] Mxnmojcwmm5654 [place] [address]Dr. Chrissy Frazier LYMPH # 2.6 103/ul Normal 1.2-3.8 [facility] Comment on above: Performed By: #### C BC ####[facility] Urqaeswdjx0666 [place] [address]Dr. Tishrowan Frazier Lymphocytes/100 WBC (Bld) 18.3 % Critically low 20.5-60.0 [facility] Comment on above: Performed By: #### C BC ####[facility] Fdlcsjmtmz0984 [place] [address]Dr. Tishrowan Frazier MANUAL DIFF REQ NO Normal [facility] Comment on above: Performed By: #### C BC ####[facility] Pryuaxbpjv[address] [place], [place] [address]Dr. Chrissy Frazier MCH (RBC) [Entitic mass] 28.1 pg Normal 25.9-34.0 [facility] Comment on above: Performed By: #### C BC ####[facility] Rkvqqyknfd7891 [place] [phone]. Chrissy Frazier MCHC (RBC) [Mass/Vol] 33.8 g/dL Normal 29.9-35.2 [facility] Comment on above: Performed By: #### C BC ####[facility] Vmbvrijkda5798 [place] [phone]. Chrissy Frazier MCV (RBC) [Entitic vol] 83.2 fL Normal 80.0-94.0 [facility] Comment on above: Performed By: #### C BC ####[facility] Wdozsnrahb8474 [place] [phone]. Chrissy Frazier MONO # 0.7 103/ul Normal 0.3-0.8 [facility] Comment on above: Performed By: #### C BC ####[facility] Dxmqhszmpw7823 [place] [address]Dr. Tishrowan Frazier Monocytes/100 WBC (Bld) 5.3 % Normal 1.7-12.0 [facility] Comment on above: Performed By: #### C BC ####[facility] Pahxidxtgj2588 [place] [address]Dr. Chrissy Frazier NEUT # 10.5 103/ul Critically high 1.4-6.5 [facility] Comment on above: Performed By: #### C BC ####[facility] Hbkilsvoke4071 [place] [phone]. Chrissy Frazier Neutrophils/100 WBC (Bld) 75.1 % Critically high 43.0-75.0 The [facility] Comment on above: Performed By: #### C BC ####[facility] Ggoytavvyl3790 [place] [phone]. Chrissy Frazier Platelet mean volume (Bld) [Entitic vol] 10.6 fL Normal 9.5-13.5 [facility] Comment on above: Performed By: #### C BC ####[facility] Dshigubdjx0794 [place] [phone]. Chrissy Freddie PLT 309 103/ul Normal 150-450 [facility] Comment on above: Performed By: #### C BC ####[facility] Pjmrmrzcmf8987 [place] [address]Dr. Chrissy Frazier RBC 5.19 106/ul Normal 4.70-6.10 [facility] Comment on above: Performed By: #### C BC ####[facility] Pcotwvyesn0555 [place] [address]Dr. Chrissy Frazier WBC 14.0 103/ul Critically high 4.0-11.0 [facility] Comment on above: Performed By: #### C BC ####[facility] Ovbaquespw6305 [place] [address]Dr. Chrissy Frazier PROF 14(COMP METB)on 022 Albumin [Mass/Vol] 4.0 g/dL Normal 3.4-5.0 [facility] Comment on above: Performed By: #### C MP ####[facility] Hrwxbasoxl377[address] [place], [place] [address]Dr. Chrissy Frazier Albumin/Globulin [Mass ratio] 1.1 {ratio} Normal [facility] Comment on above: Performed By: #### C MP ####[facility] Aodfzdzzrv058[address] [place], [place] [address]Dr. Chrissy Frazier ALP [Catalytic activity/Vol] 67 U/L Normal 46-116 [facility] Comment on above: Performed By: #### C MP ####[facility] Haqylrqhpm324[address] [place], [place] [address]Dr. Chrissy Frazier ALT [Catalytic activity/Vol] 40 U/L Normal 16-63 The [facility] Comment on above: Performed By: #### C MP ####[facility] Rpelcagmtg743[address] [place], [place] [address]Dr. Chrissy Frazier Anion gap [Moles/Vol] 17.7 mmol/L Normal [facility] Comment on above: Performed By: #### C MP ####[facility] Bjatitvdzc112[address] [place], [place] [address]Dr. Chrissy Frazier AST [Catalytic activity/Vol] 27 U/L Normal 15-37 [facility] Comment on above: Performed By: #### C MP ####[facility] Wkknqyhomk39[address] [place], [place] [address]Dr. Chrissy Frazier Bilirubin [Mass/Vol] 0.8 mg/dL Normal 0.2-1.0 The [facility] Comment on above: Performed By: #### C MP ####[facility] Kjitpupuwy8960 [place] [address]Dr. Chrissy Frazier Calcium [Mass/Vol] 8.8 mg/dL Normal 8.5-10.1 [facility] Comment on above: Performed By: #### C MP ####[facility] Qfjhvrhkqr7696 [place] [address]Dr. Chrissy Frazier Chloride [Moles/Vol] 105 mmol/L Normal 98-107 The [facility] Comment on above: Performed By: #### C MP ####[facility] Spktwjxfot5087 [place] [address]Dr. Chrissy Frazier CO2 [Moles/Vol] 16.5 mmol/L Critically low 21.0-32.0 The [facility] Comment on above: Performed By: #### C MP ####[facility] Qxqusqekld[address] [place], [place] [address]Dr. Chrissy Frazier Creatinine [Mass/Vol] 1.02 mg/dL Normal 0.70-1.30 The [facility] Comment on above: Performed By: #### C MP ####[facility] Ifmexebxbt[address] [place], [place] [address]Dr. Chrissy Frazier EGFR-AF SLOVAK >60 Normal >=60 [facility] Comment on above: Performed By: #### C MP ####[facility] Uzinorccav9418 [place] [address]Dr. Chrissy Freddie EGFR-NON AF SLOVAK >60 Normal >=60 The [facility] Comment on above: Performed By: #### C MP ####[facility] Iactdaqjsm[address] [place], [place] [address]Dr. Tishrowan Freddie Globulin (S) [Mass/Vol] 3.7 g/dL Normal [facility] Comment on above: Performed By: #### C MP ####[facility] [facility] [address]ms[address]rkc[address] [place] [address]Dr. Tishrowan Frazier Glucose [Mass/Vol] 106 mg/dL Normal 74-106 [facility] Comment on above: Performed By: #### C MP ####[facility] Hfinsfrkgj[address] [place] [address]Dr. Chrissy Freddie Potassium [Moles/Vol] 3.2 mmol/L Critically low 3.5-5.1 [facility] Comment on above: Performed By: #### C MP ####[facility] Wyopyzhxji[address] [place], [place] [address]Dr. Chrissy Freddie Protein [Mass/Vol] 7.7 g/dL Normal 6.4-8.2 The [facility] Comment on above: Performed By: #### C MP ####[facility] Rpioeqjkup[address] [place], [place] [address]Dr. Chrissy Frazier Sodium [Moles/Vol] 136 mmol/L Normal 136-145 [facility] Comment on above: Performed By: #### C MP ####[facility] Johmklxlre324[address] [place], [place] [address]Dr. Chrissy Freddie Urea nitrogen [Mass/Vol] 10.0 mg/dL Normal 7.0-18.0 The [facility] Comment on above: Performed By: #### C MP ####[facility] Shymmksvbd[address] [place], [place] [address]Dr. Tishrowan Freddie Urea nitrogen/Creatinine [Mass ratio] 9.8 mg/mg Normal [facility] Comment on above: Performed By: #### C MP ####[facility] Oczrzeoppt187[address] [place], [place] [address]Dr. Chrissy Freddie CBC AUTO DIFFon 07-03-2022 BASO # 0.1 103/ul Normal 0.0-0.1 The [facility] Comment on above: Performed By: #### C BC ####[facility] Kgbstuxfjb[address] [place], [place] [address]Dr. Chrissy Frazier Basophils/100 WBC (Bld) 0.5 % Normal 0.2-2.0 [facility] Comment on above: Performed By: #### C BC ####[facility] Fgwrbcoojh[address] [place], [place] [address]Dr. Chrissy Frazier EO # 0.1 103/ul Normal 0.0-0.7 The [facility] Comment on above: Performed By: #### C BC ####[facility] Ktpepmmspk[address] [place] [address]Dr. Chrissy Frazier Eosinophils/100 WBC (Bld) 1.3 % Normal 0.9-7.0 The [facility] Comment on above: Performed By: #### C BC ####[facility] Sasaypbkko[address] [address]Dr. Chrissy Frazier Erythrocyte distribution width (RBC) [Ratio] 14.2 % Normal 11.0-15.0 The [facility] Comment on above: Performed By: #### C BC ####[facility] Rrtblxekdh[address] [place], [place] [address]Dr. Chrissy Frazier Hematocrit (Bld) [Volume fraction] 41.7 % Critically low 42.0-54.0 The [facility] Comment on above: Performed By: #### C BC ####[facility] Dlrtslzwiw957[address] [place], [place] [address]Dr. Chrissy Frazier Hemoglobin (Bld) [Mass/Vol] 13.6 g/dL Critically low 14.0-18.0 The [facility] Comment on above: Performed By: #### C BC ####[facility] Kjlmxdfubo[address] [place], [place] [address]Dr. Chrissy Frazier IG # 0.04 10e3/ul Critically high 0.00-0.03 [facility] Comment on above: Performed By: #### C BC ####[facility] Ogmhrghbde[address] [place] [address]Dr. Chrissy Frazier IG % 0.4 % Normal 0.0-0.5 The [facility] Comment on above: Performed By: #### C BC ####[facility] Tngptuytxj357[address] [place], [place] [address]Dr. Chrissy Frazier LYMPH # 3.5 103/ul Normal 1.2-3.8 The [facility] Comment on above: Performed By: #### C BC ####[facility] Ipfsnmbaji[address] [place], [place] [address]Dr. Chrissy Frazier Lymphocytes/100 WBC (Bld) 33.5 % Normal 20.5-60.0 The [facility] Comment on above: Performed By: #### C BC ####[facility] Jsmksqjzch[address] [place] [address]Dr. Chrissy Frazier MANUAL DIFF REQ NO Normal [facility] Comment on above: Performed By: #### C BC ####[facility] Hqdmoiuinc[address] [place] [address]Dr. Chrissy Frazier MCH (RBC) [Entitic mass] 27.9 pg Normal 25.9-34.0 The [facility] Comment on above: Performed By: #### C BC ####[facility] Hwekvuhcql35[address] [place] [address]Dr. Chrissy Frazier MCHC (RBC) [Mass/Vol] 32.6 g/dL Normal 29.9-35.2 The [facility] Comment on above: Performed By: #### C BC ####[facility] Ppruuqigeq7[address] [address]Dr. Chrissy Frazier MCV (RBC) [Entitic vol] 85.6 fL Normal 80.0-94.0 The [facility] Comment on above: Performed By: #### C BC ####[facility] Tlfisuwlxb6[address] [place] [address]Dr. Chrissy Frazier MONO # 0.7 103/ul Normal 0.3-0.8 The [facility] Comment on above: Performed By: #### C BC ####[facility] Qplqwbvzol9[address] [address]Dr. Chrissy Frazier Monocytes/100 WBC (Bld) 6.5 % Normal 1.7-12.0 The [facility] Comment on above: Performed By: #### C BC ####[facility] Qvbwayzees2065 [address] [place] [address]DrNancy Frazier NEUT # 6.1 103/ul Normal 1.4-6.5 The [facility] Comment on above: Performed By: #### C BC ####[facility] Dqrlkhngtc[address] [place], [place] [address]Dr. Chrissy Frazier Neutrophils/100 WBC (Bld) 57.8 % Normal 43.0-75.0 [facility] Comment on above: Performed By: #### C BC ####[facility] Nhqvuwlxnf49[address] [place] [address]Dr. Tishrowan Freddie Platelet mean volume (Bld) [Entitic vol] 10.4 fL Normal 9.5-13.5 The [facility] Comment on above: Performed By: #### C BC ####[facility] Qfbdahvqbu35[address] [place] [address]DrNancy Frazier PLT 288 103/ul Normal 150-450 The [facility] Comment on above: Performed By: #### C BC ####[facility] Nbwztaqvej9323 [address] [address]DrNancy Frazier RBC 4.87 106/ul Normal 4.70-6.10 The [facility] Comment on above: Performed By: #### C BC ####[facility] Pgjeyqfekw[address] [place], [place] [address]DrNancy Frazier WBC 10.5 103/ul Normal 4.0-11.0 The [facility] Comment on above: Performed By: #### C BC ####[facility] Mhebyykjzi700[address] [place], [place] [address]DrNancy Frazier PROF 14(COMP METB)on 022 Albumin [Mass/Vol] 3.6 g/dL Normal 3.4-5.0 [facility] Comment on above: Performed By: #### C MP ####[facility] Azuaammuis[address] [place] [address]DrNancy Frazier Albumin/Globulin [Mass ratio] 1.1 {ratio} Normal The [facility] Comment on above: Performed By: #### C MP ####[facility] Esjzxetlwu37[address] [address]DrNancy Frazier ALP [Catalytic activity/Vol] 58 U/L Normal 46-116 The [facility] Comment on above: Performed By: #### C MP ####[facility] Rficfxhrxa[address] [place], [place] [address]Dr. Yirowan Frazier ALT [Catalytic activity/Vol] 30 U/L Normal 16-63 [facility] Comment on above: Performed By: #### C MP ####[facility] Qheninuxao5620 [address] [place] [address]Dr. Tishrowan Freddie Anion gap [Moles/Vol] 14.5 mmol/L Normal [facility] Comment on above: Performed By: #### C MP ####[facility] Mrhtuzscse715[address] [place], [place] [address]Dr. Chrissy Freddie AST [Catalytic activity/Vol] 17 U/L Normal 15-37 [facility] Comment on above: Performed By: #### C MP ####[facility] Bqrwhybvse650[address] [place], [place] [address]Dr. Chrissy Frazier Bilirubin [Mass/Vol] 0.6 mg/dL Normal 0.2-1.0 [facility] Comment on above: Performed By: #### C MP ####[facility] Tesqmktqpj3625[address] [place], [place] [address]Dr. Chrissy Frazier Calcium [Mass/Vol] 8.4 mg/dL Critically low 8.5-10.1 [facility] Comment on above: Performed By: #### C MP ####[facility] Whvrjlkghq138[address] [place], [place] [address]Dr. Chrissy Frazier Chloride [Moles/Vol] 106 mmol/L Normal 98-107 The [facility] Comment on above: Performed By: #### C MP ####[facility] Hnagxszghv[address] [place], [place] [address]Dr. Chrissy Frazier CO2 [Moles/Vol] 22.6 mmol/L Normal 21.0-32.0 The [facility] Comment on above: Performed By: #### C MP ####[facility] Ezkhiiwngv[address] [place], [place] [address]Dr. Chrissy Frazier Creatinine [Mass/Vol] 1.08 mg/dL Normal 0.70-1.30 [facility] Comment on above: Performed By: #### C MP ####[facility] Dypohmqraj704[address] [place], [place] [address]Dr. Chrissy Frazier EGFR-AF SLOVAK >60 Normal >=60 The [facility] Comment on above: Performed By: #### C MP ####[facility] Lvlfysvbei35[address] [place], [place] [address]Ed. Chrissy Frazier EGFR-NON AF SLOVAK >60 Normal >=60 The [facility] Comment on above: Performed By: #### C MP ####[facility] Ewfeysbtvs8957 [place], [place] [address]Lt. Chrissy Frazier Globulin (S) [Mass/Vol] 3.3 g/dL Normal [facility] Comment on above: Performed By: #### C MP ####[facility] Hzptbjakag4[address] [place] [address]Dr. Chrissy Frazier Glucose [Mass/Vol] 94 mg/dL Normal 74-106 [facility] Comment on above: Performed By: #### C MP ####[facility] Yjdlmmzulv70[address] [place] [address]Dr. Chrissy Frazier Potassium [Moles/Vol] 3.1 mmol/L Critically low 3.5-5.1 [facility] Comment on above: Performed By: #### C MP ####[facility] Msxbjzfxon4404 [place] [address]Dr. Chrissy Frazier Protein [Mass/Vol] 6.9 g/dL Normal 6.4-8.2 The [facility] Comment on above: Performed By: #### C MP ####[facility] Qqwgsrlvpy12[address] [place] [address]Dr. Chrissy Frazier Sodium [Moles/Vol] 140 mmol/L Normal 136-145 The [facility] Comment on above: Performed By: #### C MP ####[facility] Wqoqtunkfq12[address] [place] [address]Dr. Chrissy Frazier Urea nitrogen [Mass/Vol] 10.0 mg/dL Normal 7.0-18.0 The [facility] Comment on above: Performed By: #### C MP ####[facility] Zbxatwanba[address] [place] [address]Dr. Chrissy Frazier Urea nitrogen/Creatinine [Mass ratio] 9.3 mg/mg Normal The [facility] Comment on above: Performed By: #### C MP ####[facility] Wurewbpfsm254[address] [place], [place] [address]Dr. Chrissy Frazier CBC AUTO DIFFon 07-02-2022 BASO # 0.0 103/ul Normal 0.0-0.1 The [facility] Comment on above: Performed By: #### C BC ####[facility] Ecmfliqpga[address] [place], [place] [address]Dr. Chrissy Frazier Basophils/100 WBC (Bld) 0.2 % Normal 0.2-2.0 The [facility] Comment on above: Performed By: #### C BC ####[facility] Onyhtlecom[address] [place], [place] [address]Dr. Chrissy Frazier EO # 0.0 103/ul Normal 0.0-0.7 The [facility] Comment on above: Performed By: #### C BC ####[facility] Iojnfaniso757[address] [place], [place] [address]Dr. Chrissy Frazier Eosinophils/100 WBC (Bld) 0.0 % Critically low 0.9-7.0 The [facility] Comment on above: Performed By: #### C BC ####[facility] Wndscurspy[address] [place], [place] [address]Dr. Chrissy Frazier Erythrocyte distribution width (RBC) [Ratio] 14.2 % Normal 11.0-15.0 The [facility] Comment on above: Performed By: #### C BC ####[facility] Txoxcewpse183[address] [place], [place] [address]Dr. Chrissy Frazier Hematocrit (Bld) [Volume fraction] 46.2 % Normal 42.0-54.0 The [facility] Comment on above: Performed By: #### C BC ####[facility] Qkhzxebrcg020607 [address] [place], [place] [address]Dr. Chrisys Frazier Hemoglobin (Bld) [Mass/Vol] 15.2 g/dL Normal 14.0-18.0 The [facility] Comment on above: Performed By: #### C BC ####[facility] Ixgqqylqhf666[address] [place], [place] [address]Dr. Chrissy Frazier IG # 0.07 10e3/ul Critically high 0.00-0.03 [facility] Comment on above: Performed By: #### C BC ####[facility] Kjijaxnygd36[address] [place] [id number] Chrissy Freddie IG % 0.4 % Normal 0.0-0.5 [facility] Comment on above: Performed By: #### C BC ####[facility] Drxjpcowkv3514 [address] [address]DrNancy Chrissy Freddie LYMPH # 2.8 103/ul Normal 1.2-3.8 [facility] Comment on above: Performed By: #### C BC ####[facility] Edbzajabpz959[address] [place], [place] [address]DrNancy Chrissy Freddie Lymphocytes/100 WBC (Bld) 16.7 % Critically low 20.5-60.0 [facility] Comment on above: Performed By: #### C BC ####[facility] Nnptfrodnq923[address] [place], [place] [address]DrNancy Chrissy Freddie MANUAL DIFF REQ NO Normal [facility] Comment on above: Performed By: #### C BC ####[facility] Kdzteebuxg336[address] [place], [place] [address]DrNancy Chrissy Freddie MCH (RBC) [Entitic mass] 28.3 pg Normal 25.9-34.0 [facility] Comment on above: Performed By: #### C BC ####[facility] Wuwybzzlsr3213 [place] [address]DrNancy Chrissy Freddie MCHC (RBC) [Mass/Vol] 32.9 g/dL Normal 29.9-35.2 The [facility] Comment on above: Performed By: #### C BC ####[facility] Gsumrhxsid35[address] [place], [place] [address]DrNancy Winstonrowan Freddie MCV (RBC) [Entitic vol] 86.0 fL Normal 80.0-94.0 [facility] Comment on above: Performed By: #### C BC ####[facility] Jbjccmmcrm[address] [place], [place] [address]DrNancy Frazier MONO # 0.9 103/ul Critically high 0.3-0.8 [facility] Comment on above: Performed By: #### C BC ####[facility] Webwrnpule0163 [place] [phone]. Chrissy Frazier Monocytes/100 WBC (Bld) 5.1 % Normal 1.7-12.0 The [facility] Comment on above: Performed By: #### C BC ####[facility] Vhuxzmkmcp6[address] [place] [phone]. Chrissy Frazier NEUT # 13.2 103/ul Critically high 1.4-6.5 The [facility] Comment on above: Performed By: #### C BC ####[facility] Cqxarruyng[address] [address]Dr. Chrissy Frazier Neutrophils/100 WBC (Bld) 77.6 % Critically high 43.0-75.0 The [facility] Comment on above: Performed By: #### C BC ####[facility] Luifljkmxk423[address] [place], [place] [address]Dr. Chrissy Frazier Platelet mean volume (Bld) [Entitic vol] 11.6 fL Normal 9.5-13.5 The [facility] Comment on above: Performed By: #### C BC ####[facility] Qtpqwtxxha0040 [address] [address]Dr. Chrissy Frazier PLT 317 103/ul Normal 150-450 The [facility] Comment on above: Performed By: #### C BC ####[facility] Kiqzhmnlyw[address] [place], [place] [address]Dr. Chrissy Frazier RBC 5.37 106/ul Normal 4.70-6.10 The [facility] Comment on above: Performed By: #### C BC ####[facility] Sigsdrnhnj44[address] [place] [phone]. Chrissy Frazier WBC 17.1 103/ul Critically high 4.0-11.0 [facility] Comment on above: Performed By: #### C BC ####[facility] Dgrejtsils[address] [place] [phone]. Chrissy Frazier CT ABD/PELV W MARGOTHon 07-02-[address] ABD/PELV W CON Normal [facility] H PYLORI ANTIBODY IGGon 06-21 H. PYLORI IGG ABS 0.13 Index Value Normal 0.00-0.79 [facility] Comment on above: Result Comment: Nega tive <0.80 Equivocal 0.80 - 0.89 Positive >0.89 Performed By: #### H PYLLC ####[facility] Lqtsnewrvt4[address] [place] [address]Dr. Chrissy Frazier PROF 14(COMP METB)on 022 Albumin [Mass/Vol] 3.8 g/dL Normal 3.4-5.0 [facility] Comment on above: Performed By: #### C MP ####[facility] Sibufjrsag639[address] [place], [place] [address]Dr. Chrissy Frazier Albumin/Globulin [Mass ratio] 1.0 {ratio} Normal [facility] Comment on above: Performed By: #### C MP ####[facility] Dghyntnqur547[address] [place], [place] [address]Dr. Chrissy Frazier ALP [Catalytic activity/Vol] 68 U/L Normal 46-116 [facility] Comment on above: Performed By: #### C MP ####[facility] Gvmkxruwco[address] [place], [place] [address]Dr. Chrissy Frazier ALT [Catalytic activity/Vol] 34 U/L Normal 16-63 [facility] Comment on above: Performed By: #### C MP ####[facility] Bvqdbbgtpg820[address] [place], [place] [address]Dr. Chrissy Frazier Anion gap [Moles/Vol] 17.9 mmol/L Normal [facility] Comment on above: Performed By: #### C MP ####[facility] Lqqdpcxwed804[address] [place], [place] [address]Dr. Chrissy Frazier AST [Catalytic activity/Vol] 24 U/L Normal 15-37 [facility] Comment on above: Performed By: #### C MP ####[facility] Obhrinlyyy917[address] [place], [place] [address]Dr. Chrissy Frazier Bilirubin [Mass/Vol] 0.6 mg/dL Normal 0.2-1.0 [facility] Comment on above: Performed By: #### C MP ####[facility] Vytmcvdztw47[address] [place] [address]Dr. Chrissy Frazier Calcium [Mass/Vol] 8.8 mg/dL Normal 8.5-10.1 [facility] Comment on above: Performed By: #### C MP ####[facility] Xcakdgivdu9624 [place] [address]Dr. Chrissy Frazier Chloride [Moles/Vol] 105 mmol/L Normal 98-107 [facility] Comment on above: Performed By: #### C MP ####[facility] Iejmnuqcea790[address] [place], [place] [address]Dr. Chrissy Frazier CO2 [Moles/Vol] 18.8 mmol/L Critically low 21.0-32.0 [facility] Comment on above: Performed By: #### C MP ####[facility] Urfadxhnzh074[address] [place], [place] [address]Dr. Chrissy Frazier Creatinine [Mass/Vol] 1.15 mg/dL Normal 0.70-1.30 [facility] Comment on above: Performed By: #### C MP ####[facility] Wdiuymqkto8[address] [place], [place] [address]Dr. Chrissy Frazier EGFR-AF SLOVAK >60 Normal >=60 [facility] Comment on above: Performed By: #### C MP ####[facility] Myzqyqjjtd680[address] [place], [place] [address]Dr. Chrissy Freddie EGFR-NON AF SLOVAK >60 Normal >=60 [facility] Comment on above: Performed By: #### C MP ####[facility] Osxurcgylg073[address] [place], [place] [address]Dr. Chrissy Freddie Globulin (S) [Mass/Vol] 3.9 g/dL Normal [facility] Comment on above: Performed By: #### C MP ####[facility] Tyuifiazke405[address] [place], [place] [address]Dr. Chrissy Frazier Glucose [Mass/Vol] 124 mg/dL Critically high 74-106 [facility] Comment on above: Performed By: #### C MP ####[facility] Vvsvdvhpcm79[address] [place] [address]Dr. Chrissy Frazier Potassium [Moles/Vol] 3.7 mmol/L Normal 3.5-5.1 [facility] Comment on above: Performed By: #### C MP ####[facility] Qcopgyovob2173 [place] [address]Dr. Chrissy Freddie Protein [Mass/Vol] 7.7 g/dL Normal 6.4-8.2 [facility] Comment on above: Performed By: #### C MP ####[facility] Kvqlviiyce5[address] [place], [place] [address]Dr. Tishrowan Frazier Sodium [Moles/Vol] 138 mmol/L Normal 136-145 [facility] Comment on above: Performed By: #### C MP ####[facility] Tuxbqaedwq[address] [place], [place] [address]Dr. Tishrowan Frazier Urea nitrogen [Mass/Vol] 9.0 mg/dL Normal 7.0-18.0 [facility] Comment on above: Performed By: #### C MP ####[facility] Gteiqnkytv[address] [place], [place] [address]Dr. Chrissy Freddie Urea nitrogen/Creatinine [Mass ratio] 7.8 mg/mg Normal [facility] Comment on above: Performed By: #### C MP ####[facility] Nkdxtneazt338[address] [place], [place] [address]Dr. Chrissy Freddie AMMONIAon 07-01-2022 Ammonia (P) [Moles/Vol] 14 umol/L Normal 11-32 [facility] Comment on above: Performed By: #### A MM ####[facility] Zwdwiougsc[address] [place], [place] [address]Dr. Tishrowan Frazier AMYLASEon 07-01-2022 Amylase [Catalytic activity/Vol] 32 U/L Normal 25-115 [facility] Comment on above: Performed By: #### A MY, PHOS, CMP, LIPA ####[facility] [address] [place] [address]Dr. Tishrowan Frazier CBC AUTO DIFFon 07-01-2022 BASO # 0.1 103/ul Normal 0.0-0.1 [facility] Comment on above: Performed By: #### C BC ####[facility] [address]zov[address]xazh[address] [place] [address]Dr. Chrissy Frazier Basophils/100 WBC (Bld) 0.4 % Normal 0.2-2.0 The [facility] Comment on above: Performed By: #### C BC ####[facility] Xonmhrakdz411[address] [place], [place] [address]Dr. Chrissy Frazier EO # 0.2 103/ul Normal 0.0-0.7 The [facility] Comment on above: Performed By: #### C BC ####[facility] Dybziznffx8527[address] [place], [place] [address]Dr. Tishrowan Freddie Eosinophils/100 WBC (Bld) 0.9 % Normal 0.9-7.0 The [facility] Comment on above: Performed By: #### C BC ####[facility] Ichjxckdxk23[address] [place], [place] [address]Dr. Chrissy Frazier Erythrocyte distribution width (RBC) [Ratio] 13.8 % Normal 11.0-15.0 [facility] Comment on above: Performed By: #### C BC ####[facility] Oyycylzuhk[address] [place], [place] [address]Dr. Tishrowan Frazier Hematocrit (Bld) [Volume fraction] 46.3 % Normal 42.0-54.0 [facility] Comment on above: Performed By: #### C BC ####[facility] Rpxmurvgje624[address] [place], [place] [address]Dr. Tishrowan Frazier Hemoglobin (Bld) [Mass/Vol] 15.4 g/dL Normal 14.0-18.0 The [facility] Comment on above: Performed By: #### C BC ####[facility] Gryvbrtuma613[address] [place], [place] [address]Dr. Chrissy Frazier IG # 0.05 10e3/ul Critically high 0.00-0.03 [facility] Comment on above: Performed By: #### C BC ####[facility] [address]axcvlq[address] [place] [address]Dr. Chrissy Frazier IG % 0.3 % Normal 0.0-0.5 The [facility] Comment on above: Performed By: #### C BC ####[facility] Gakjdptlbo344[address] [place], [place] [address]Dr. Chrissy Frazier LYMPH # 2.0 103/ul Normal 1.2-3.8 The [facility] Comment on above: Performed By: #### C BC ####[facility] Tljdlbzggs04[address] [place], [place] [address]Dr. Chrissy Frazier Lymphocytes/100 WBC (Bld) 12.9 % Critically low 20.5-60.0 The [facility] Comment on above: Performed By: #### C BC ####[facility] Xewsfeqgwc063[address] [place], [place] [address]DrNancy Frazier MANUAL DIFF REQ NO Normal [facility] Comment on above: Performed By: #### C BC ####[facility] Gdjaflmzws[address] [place], [place] [address]Dr. Tishrowan Frazier MCH (RBC) [Entitic mass] 28.6 pg Normal 25.9-34.0 The [facility] Comment on above: Performed By: #### C BC ####[facility] Tmwbrvztkm[address] [place], [place] [address]Dr. Chrissy Freddie MCHC (RBC) [Mass/Vol] 33.3 g/dL Normal 29.9-35.2 The [facility] Comment on above: Performed By: #### C BC ####[facility] Gbumqeajlk[address] [place], [place] [address]DrNancy Frazier MCV (RBC) [Entitic vol] 86.1 fL Normal 80.0-94.0 The [facility] Comment on above: Performed By: #### C BC ####[facility] Neuyzcrsin[address] [place], [place] [address]DrNancy Frazier MONO # 0.5 103/ul Normal 0.3-0.8 The [facility] Comment on above: Performed By: #### C BC ####[facility] Bombhgvokb995[address] [place], [place] [address]Dr. Chrissy Frazier Monocytes/100 WBC (Bld) 3.0 % Normal 1.7-12.0 The [facility] Comment on above: Performed By: #### C BC ####[facility] [address]brok[address] [place] [address]Dr. Chrissy Frazier NEUT # 13.0 103/ul Critically high 1.4-6.5 [facility] Comment on above: Performed By: #### C BC ####[facility] Fxlnekbjky[address] [place] [address]Dr. Chrissy Frazier Neutrophils/100 WBC (Bld) 82.5 % Critically high 43.0-75.0 The [facility] Comment on above: Performed By: #### C BC ####[facility] Vyckvfvofx1117[address] [place], [place] [address]Dr. Chrissy Frazier Platelet mean volume (Bld) [Entitic vol] 10.0 fL Normal 9.5-13.5 The [facility] Comment on above: Performed By: #### C BC ####[facility] Dpsuyxsjbk[address] [place], [place] [address]Dr. Chrissy Frazier PLT 370 103/ul Normal 150-450 The [facility] Comment on above: Performed By: #### C BC ####[facility] Clxphdsxzc278[address] [place], [place] [address]Dr. Chrissy Frazier RBC 5.38 106/ul Normal 4.70-6.10 The [facility] Comment on above: Performed By: #### C BC ####[facility] Qofjuucqyk8225[address] [place], [place] [address]Dr. Chrissy Frazier WBC 15.8 103/ul Critically high 4.0-11.0 [facility] Comment on above: Performed By: #### C BC ####[facility] [address]zb[address]adk[address] [place] [address]Dr. Chrissy Frazier CULTURE URINEon 07-01-2022 CULTURE URINE Culture Observations: No growth Normal The [facility] Comment on above: Performed By: #### U RCX ####[facility] Qyqmjmigqr[address] [place], [place] [address]Dr. Chrissy Frazier Covid-19 PCR (CVDTB)on 06-21 SARS-CoV-2 (COVID-19) RNA RHIANNON+probe Ql (Unsp spec) Not detected Normal NOT DETECTED The [facility] Comment on above: Result Comment: When diagnostic [...] for this test is supported by the [employer] and Human Service's declaration that [...] be used). Performed By: #### C VDTBH ####[facility] [address]kv[address] [place] [address]Dr. Chrissy Freddie DRUG SCREEN RAPID (URINE)on 07-01-2022 AMP Negative Normal NEGATIVE The [facility] Comment on above: Performed By: #### D REYES UAMIC ####[facility] [address] [place] [id number]. Chrissy Frazier BAR Negative Normal NEGATIVE The [facility] Comment on above: Performed By: #### D CHAYAD, UAMIC ####[facility] Rgbagoondo[address] [place] [phone]. Chrissy Frazier BUP Negative Normal NEGATIVE The [facility] Comment on above: Performed By: #### D REYES UAMIC ####[facility] Y[address]ohklvg[address] [place] [phone]. Tishrowan Frazier BZO Negative Normal NEGATIVE The [facility] Comment on above: Performed By: #### D REYES UAMIC ####[facility] [address]utcr[address] [place] [phone]. Chrissy Frazier LAUREN Negative Normal NEGATIVE The [facility] Comment on above: Performed By: #### Amelie CHAMBERS UAMIC ####[facility] Rpmaojxgje167[address] [place], [place] [address]Dr. Chrissy Frazier CUT-OFFS SEE BELOW Normal The [facility] Comment on above: Result Comment: AMP (Amphetamine): 500ng/mL, BAR (Barbituates): 200 ng/mL, BZO (Benzodiazepines): 150 ng/mL, BUP (Buprenorphine): 10 ng/mL, LAUREN (Cocaine): 150 ng/mL, mAMP (Methamphetamine): 500 ng/mL, MTD (Methadone): 200 ng/mL, OPI (Opiates): 100 ng/mL, OXY (Oxycodone): 100 ng/mL, PCP (Phencyclidine): 25 ng/mL, PPX (Propoxyphene): 300 ng/mL, THC (Cannabinoids): 50 ng/mL, TCA (Trycyclic Antidepressants): 300 ng/mL Performed By: #### Amelie CHAMBERS UAMIC ####[facility] Jpgllendkp[address] [place], [place] [address]Dr. Chrissy Frazier DRUG CUT HEADER DRUG CLASS TEST SYSTEM CUT-OFF CONCENTRATIONS ARE FOLLOWS: Normal The [facility] Comment on above: Performed By: #### Amelie CHAMBERS UAMIC ####[facility] Aqophicihy[address] [place], [place] [address]Dr. Chrissy Frazier mAMP Negative Normal NEGATIVE The [facility] Comment on above: Performed By: #### Amelie CHAMBERS UAMIC ####[facility] Fsxtmioypv[address] [place], [place] [address]Dr. Chrissy Frazier MTD Negative Normal NEGATIVE The [facility] Comment on above: Performed By: #### Amelie CHAMBERS UAMIC ####[facility] Icxvsexvfv686[address] [place], [place] [address]Dr. Chrissy Frazier OPI Negative Normal NEGATIVE The [facility] Comment on above: Performed By: #### Amelie CHAMBERS UAMIC ####[facility] Dzdwjcohzf[address]19[address] [place], [place] [address]Dr. Chrissy Frazier OXY Negative Normal NEGATIVE The [facility] Comment on above: Performed By: #### D REYES, UAMIC ####[facility] En[address]rl[address] [place] [address]Dr. Chrissy Frazier PCP Negative Normal NEGATIVE The [facility] Comment on above: Performed By: #### D REYES, UAMIC ####[facility] O[address]xwcb[address] [place] [address]Dr. Chrissy Frazier PPX Negative Normal NEGATIVE The [facility] Comment on above: Performed By: #### D REYES, UAMIC ####[facility] Hyuvntsqkz[address] [place] [address]Dr. Chrissy Frazier TCA Negative Normal NEGATIVE The [facility] Comment on above: Performed By: #### D REYES UAMIC ####[facility] Scifxkvuxw[address]15[address] [place], [place] [address]Dr. Chrissy Frazier THC Positive Abnormal NEGATIVE The [facility] Comment on above: Performed By: #### D REYES UAMIC ####[facility] Wvhnkexffx[address] [place], [place] [address]Dr. Chrissy Frazier LACTATE/LACTIC ACIDon 2021 Lactate [Moles/Vol] 4.4 mmol/L Critically high 0.4-1.9 [facility] Comment on above: Performed By: #### L ACT ####[facility] Gmguxpgdpm[address] [place], [place] [address]Dr. Chrissy Frazier LIPASEon 07-01-2022 Lipase [Catalytic activity/Vol] 57.0 U/L Critically low 73.0-393.0 [facility] Comment on above: Performed By: #### A MY, PHOS, CMP, LIPA ####[facility] Fvxgibqvcc[address] [place], [place] [address]Dr. Chrissy Frazier PHOSPHORUSon 07-01-2022 Phosphate [Mass/Vol] 1.4 mg/dL Critically low 2.6-4.7 The [facility] Comment on above: Performed By: #### A MY, PHOS, CMP, LIPA ####[facility] Ouchroqtmj[address] [place], [place] [address]Dr. Chrissy Frazier PROF 14(COMP METB)on 022 Albumin [Mass/Vol] 4.2 g/dL Normal 3.4-5.0 [facility] Comment on above: Performed By: #### A MY, PHOS, CMP, LIPA ####[facility] [address]qi[address] [place] [address]Dr. Chrissy Frazier Albumin/Globulin [Mass ratio] 1.1 {ratio} Normal [facility] Comment on above: Performed By: #### A MY, PHOS, CMP, LIPA ####[facility] [address]pvrqi[address] [place] [address]Dr. Chrissy Frazier ALP [Catalytic activity/Vol] 73 U/L Normal 46-116 [facility] Comment on above: Performed By: #### A MY, PHOS, CMP, LIPA ####[facility] [address] [place] [address]Dr. Chrissy Frazier ALT [Catalytic activity/Vol] 43 U/L Normal 16-63 [facility] Comment on above: Performed By: #### A MY, PHOS, CMP, LIPA ####[facility] I[address]fcxl[address] [place] [address]Dr. Chrissy Frazier Anion gap [Moles/Vol] 19.0 mmol/L Normal [facility] Comment on above: Performed By: #### A MY, PHOS, CMP, LIPA ####[facility] A[address]pvjuxee[address] [place] [address]Dr. Chrissy Frzaier AST [Catalytic activity/Vol] 21 U/L Normal 15-37 [facility] Comment on above: Performed By: #### A MY, PHOS, CMP, LIPA ####[facility] [address]ymfgnqmp[address] [place] [address]Dr. Chrissy Frazier Bilirubin [Mass/Vol] 0.5 mg/dL Normal 0.2-1.0 [facility] Comment on above: Performed By: #### A MY, PHOS, CMP, LIPA ####[facility] M[address]jksgknk[address] [place] [address]Dr. Chrissy Frazier Calcium [Mass/Vol] 9.3 mg/dL Normal 8.5-10.1 [facility] Comment on above: Performed By: #### A MY, PHOS, CMP, LIPA ####[facility] Yfivobzmua[address] [place] [address]Dr. Chrissy Frazier Chloride [Moles/Vol] 103 mmol/L Normal 98-107 [facility] Comment on above: Performed By: #### A MY, PHOS, CMP, LIPA ####[facility] Kmfznisfsz[address] [place] [address]Dr. Chrissy Frazier CO2 [Moles/Vol] 21.1 mmol/L Normal 21.0-32.0 [facility] Comment on above: Performed By: #### A MY, PHOS, CMP, LIPA ####[facility] Sujyuifqia[address] [place], [place] [address]Dr. Chrissy Frazier Creatinine [Mass/Vol] 1.44 mg/dL Critically high 0.70-1.30 [facility] Comment on above: Performed By: #### A MY, PHOS, CMP, LIPA ####[facility] Rzbdvnvong[address] [place], [place] [address]Dr. Chrissy Frazier EGFR-AF SLOVAK >60 Normal >=60 [facility] Comment on above: Performed By: #### A MY, PHOS, CMP, LIPA ####[facility] [address]jnmt[address] [place] [address]Dr. Chrissy Frazier EGFR-NON AF [place]OVAK 57 mL/min/1.73m2 Critically low >=60 The [facility] Comment on above: Performed By: #### A MY, PHOS, CMP, LIPA ####[facility] Tyw[address]atdij[address] [place] [address]Dr. Chrissy Frazier Globulin (S) [Mass/Vol] 3.9 g/dL Normal [facility] Comment on above: Performed By: #### A MY, PHOS, CMP, LIPA ####[facility] [address]ysfspji[address] [place] [address]Dr. Chrissy Frazier Glucose [Mass/Vol] 148 mg/dL Critically high 74-106 [facility] Comment on above: Performed By: #### A MY, PHOS, CMP, LIPA ####[facility] Yxuiishnsd[address] [place] [address]Dr. Chrissy Frazier Potassium [Moles/Vol] 3.1 mmol/L Critically low 3.5-5.1 The [facility] Comment on above: Performed By: #### A MY, PHOS, CMP, LIPA ####[facility] Qdpaqiktxr[address] [place] [address]Dr. Chrissy Frazier Protein [Mass/Vol] 8.1 g/dL Normal 6.4-8.2 The [facility] Comment on above: Performed By: #### A MY, PHOS, CMP, LIPA ####[facility] Ugrbruqdku[address] [place] [address]Dr. Chrissy Frazier Sodium [Moles/Vol] 140 mmol/L Normal 136-145 [facility] Comment on above: Performed By: #### A MY, PHOS, CMP, LIPA ####[facility] Dngrzxqcry[address] [place] [address]Dr. Chrissy Frazier Urea nitrogen [Mass/Vol] 10.0 mg/dL Normal 7.0-18.0 The [facility] Comment on above: Performed By: #### A MY, PHOS, CMP, LIPA ####[facility] Toheliopwl[address] [place] [address]Dr. Chrissy Frazier Urea nitrogen/Creatinine [Mass ratio] 6.9 mg/mg Normal The [facility] Comment on above: Performed By: #### A MY, PHOS, CMP, LIPA ####[facility] Jjynuuxqkl[address] [place] [address]Dr. Chrissy Freddie UA RANDOM W/MICROSCOPICon BACTERIA TRACE Abnormal NONE SEEN The [facility] Comment on above: Performed By: #### D REYES UAMIC ####[facility] Avnbldudhh[address] [place] [address]Dr. Tishrowan Freddie Bilirubin Ql (U) Negative Normal NEGATIVE [facility] Comment on above: Performed By: #### D REYES UAMIC ####[facility] Vqfkmtemaz[address] [place] [address]Dr. Chrissy Frazier CAST NONE SEEN Normal NONE SEEN The [facility] Comment on above: Performed By: #### Amelie CHAMBERS UAMIC ####[facility] Frnuulsvnv[address] [place], [place] [address]Dr. Chrissy Frazier Clarity (U) CLEAR Normal CLEAR The [facility] Comment on above: Performed By: #### Amelie CHAMBERS UAMIC ####[facility] Xnpkykadeb[address] [place] [address]Dr. Chrissy Frazier Color (U) YELLOW Normal YELLOW The [facility] Comment on above: Performed By: #### Amelie CHAMBERS UAMIC ####[facility] Wndsdmdvsn[address] [place], [place] [address]Dr. Chrissy Frazier Crystals LM Nom (Urine sed) NONE SEEN Normal NONE SEEN The [facility] Comment on above: Performed By: #### Amelie CHAMBERS UAMIC ####[facility] Ixtfjcshol[address] [place], [place] [address]Dr. Chrissy Frazier Epithelial cells LM Ql (Urine sed) RARE Normal NONE SEEN /RARE The [facility] Comment on above: Performed By: #### Amelie CHAMBERS UAMIC ####[facility] Hypatvsbjz[address] [place], [place] [address]Dr. Chrissy Frazier Glucose Ql (U) Negative Normal NEGATIVE [facility] Comment on above: Performed By: #### Amelie CHAMBERS UAMIC ####[facility] Anewztvuqn[address] [place], [place] [address]Dr. Chrissy Frazier Hemoglobin Ql (U) Negative Normal NEGATIVE The [facility] Comment on above: Performed By: #### Amelie CHAMBERS UAMIC ####[facility] Pqoeohwfhy[address] [place], [place] [address]Dr. Chrissy Frazier Ketones Ql (U) 40 mg/dl Abnormal NEGATIVE [facility] Comment on above: Performed By: #### Amelie CHAMBERS UAMIC ####[facility] Lgyglycpmr225[address] [place], [place] [address]Dr. Chrissy Frazier LEUKOCYTES Negative Normal NEGATIVE The [facility] Comment on above: Performed By: #### Amelie CHAMBERS, UAMIC ####[facility] Zhwmqcfgiq8354 [place] [address]Dr. Chrissy Frazier MUCOUS MODERATE Abnormal NONE SEEN The [facility] Comment on above: Performed By: #### Amelie CHAMBERS, UAMIC ####[facility] Wilqnyqvxo24[address] [place] [address]Dr. Chrissy Frazier Nitrite Ql (U) Negative Normal NEGATIVE [facility] Comment on above: Performed By: #### Amelie CHAMBERS UAMIC ####[facility] Askzrzqddu49[address] [place], [place] [address]Dr. Chrissy Frazier pH (U) 6.0 [pH] Normal 5-9 The [facility] Comment on above: Performed By: #### Amelie CHAMBERS UAMIC ####[facility] Embewgfqvz9[address] [place], [place] [address]Dr. Chrissy Frazier RBC 0-2 Normal 0-2 The [facility] Comment on above: Performed By: #### Amelie CHAMBERS UAMIC ####[facility] Llofuvhbdx[address] [place], [place] [address]Dr. Chrissy Frazier SPEC GRAVITY 1.020 Normal 1.005-<=1.025 [facility] Comment on above: Performed By: #### Amelie CHAMBERS UAMIC ####[facility] [facility] [address] [place], [place] [address]Dr. Chrissy Frazier UA PROTEIN Negative Normal NEGATIVE/ TRACE [facility] Comment on above: Performed By: #### Amelie CHAMBERS UAMIC ####[facility] K[address]xs[address] [place], [place] [address]Dr. Chrissy Frazier Urobilinogen Qn (U) 0.2 {Estrellita'U}/dL Normal 0.2 - 1. 0 The [facility] Comment on above: Performed By: #### Amelie CHAMBERS UAMIC ####[facility] Bybxtovzsp[address] [place], [place] [address]Dr. Chrissy Frazier WBC 0-2 Abnormal NONE SEEN The [facility] Comment on above: Performed By: #### D RUGRPD, UAMIC ####[facility] Pnjpptexmq[address] [place], [place] [address]Gw. Chrissy Frazier XR ABD FLAT UP_PA Enoch 07-01 XR ABD FLAT UP_PA CH Normal The [facility] Covid-19 PCR (CVDTB)on SARS-CoV-2 (COVID-19) RNA RHIANNON+probe Ql (Unsp spec) Not detected Normal NOT DETECTED The [facility] Comment on above: Result Comment: When diagnostic [...] for this test is supported by the [employer] of Health and Human Service's declaration that [...] longer be used). Performed By: #### [facility] ####[facility] Fl[address]ymuhihl[address] [place], [place] [address]Qb. Chrissy Frazier SYMPTOMATIC COVID-19 ANTIGEN on 04-23-2022 EUA Statement SEE BELOW Normal The [facility] Comment on above: Result Comment: [...] revoked sooner. Performed By: #### C VDAGS ####[facility] Nnhvgegwdm[address] [place] [address]Dr. Chrissy Frazier SARS-CoV-2 (COVID-19) RNA RHIANNON+probe Ql (Unsp spec) Negative Normal NEGATIVE The [facility] Comment on above: Performed By: #### C VDAGS ####[facility] Intmpbrmnh[address] [place], [place] [address]Dr. Chrissy Frazier AMYLASEon 04-04-2022 Amylase [Catalytic activity/Vol] 40 U/L Normal 25-115 The [facility] Comment on above: Performed By: #### C MP, TERRENCE, LIPA ####[facility] Ekgxhhtkas[address] [place], [place] [address]Dr. Chrissy Frazier CBC AUTO DIFFon 04-04-2022 BASO # 0.1 103/ul Normal 0.0-0.1 [facility] Comment on above: Performed By: #### C BC ####[facility] Strfuetmst[address] [place], [place] [address]Dr. Chrissy Frazier Basophils/100 WBC (Bld) 0.4 % Normal 0.2-2.0 The [facility] Comment on above: Performed By: #### C BC ####[facility] Kmqiknnmyf[address] [place], [place] [address]Dr. Chrissy Frazier EO # 0.1 103/ul Normal 0.0-0.7 The [facility] Comment on above: Performed By: #### C BC ####[facility] Udzlnluxut[address] [place], [place] [address]Dr. Chrissy Frazier Eosinophils/100 WBC (Bld) 0.6 % Critically low 0.9-7.0 The [facility] Comment on above: Performed By: #### C BC ####[facility] Xpsjaghpep[address] [place], [place] [address]Dr. Chrissy Frazier Erythrocyte distribution width (RBC) [Ratio] 13.2 % Normal 11.0-15.0 The [facility] Comment on above: Performed By: #### C BC ####[facility] Ku[address]cpjch[address] [place] [address]Dr. Chrissy Frazier Hematocrit (Bld) [Volume fraction] 48.3 % Normal 42.0-54.0 [facility] Comment on above: Performed By: #### C BC ####[facility] Bmtrbfqxxl34[address] [place] [address]Dr. Chrissy Frazier Hemoglobin (Bld) [Mass/Vol] 16.1 g/dL Normal 14.0-18.0 [facility] Comment on above: Performed By: #### C BC ####[facility] Thbvbbichb[address] [place], [place] [address]Dr. Chrissy Frazier IG # 0.12 10e3/ul Critically high 0.00-0.03 [facility] Comment on above: Performed By: #### C BC ####[facility] Ejaagynhur[address] [place], [place] [address]Dr. Chrissy Frazier IG % 0.9 % Critically high 0.0-0.5 [facility] Comment on above: Performed By: #### C BC ####[facility] Nvawmbctip[address] [place], [place] [address]Dr. Chrissy Frazier LYMPH # 3.0 103/ul Normal 1.2-3.8 [facility] Comment on above: Performed By: #### C BC ####[facility] Afkorrfvbi[address] [place], [place] [address]Dr. Chrissy Frazier Lymphocytes/100 WBC (Bld) 22.3 % Normal 20.5-60.0 [facility] Comment on above: Performed By: #### C BC ####[facility] Qmzjelzggh[address] [place], [place] [address]DrNancy Frazier MANUAL DIFF REQ NO Normal [facility] Comment on above: Performed By: #### C BC ####[facility] Gfkshwayvi[address] [place], [place] [address]DrNancy Frazier MCH (RBC) [Entitic mass] 28.6 pg Normal 25.9-34.0 [facility] Comment on above: Performed By: #### C BC ####[facility] [address]qeyp[address] [place] [id number]. Chrissy Freddie MCHC (RBC) [Mass/Vol] 33.3 g/dL Normal 29.9-35.2 [facility] Comment on above: Performed By: #### C BC ####[facility] [address] [place] [phone]. Tishrowan Freddie MCV (RBC) [Entitic vol] 85.9 fL Normal 80.0-94.0 [facility] Comment on above: Performed By: #### C BC ####[facility] [address]fofkbuzha[address] [place], [place] [address]Dr. Chrissy Frazier MONO # 0.8 103/ul Normal 0.3-0.8 The [facility] Comment on above: Performed By: #### C BC ####[facility] Mxnforwiui[address] [place], [place] [address]Dr. Chrissy Frazier Monocytes/100 WBC (Bld) 5.7 % Normal 1.7-12.0 [facility] Comment on above: Performed By: #### C BC ####[facility] Wy[address] [place], [place] [id number]. Chrissy Frazier NEUT # 9.3 103/ul Critically high 1.4-6.5 [facility] Comment on above: Performed By: #### C BC ####[facility] N[address]xsvtu[address] [place], [place] [address]Dr. Chrissy Frazier Neutrophils/100 WBC (Bld) 70.1 % Normal 43.0-75.0 The [facility] Comment on above: Performed By: #### C BC ####[facility] J[address]frcew[address] [place], [place] [address]DrNancy Frazier Platelet mean volume (Bld) [Entitic vol] 10.3 fL Normal 9.5-13.5 The [facility] Comment on above: Performed By: #### C BC ####[facility] Qlugjcjwxf[address] [place], [place] [address]Dr. Chrissy Frazier PLT 461 103/ul Critically high 150-450 [facility] Comment on above: Performed By: #### C BC ####[facility] [address]niscd[address] [place] [address]Dr. Tishrowan Freddie RBC 5.62 106/ul Normal 4.70-6.10 The [facility] Comment on above: Performed By: #### C BC ####[facility] [address]bxrf[address] [place] [phone]. Chrissy Frazier WBC 13.3 103/ul Critically high 4.0-11.0 [facility] Comment on above: Performed By: #### C BC ####[facility] [address]wsnfquhbn[address] [place] [address]Dr. Chrissy Frazier LIPASEon 04-04-2022 Lipase [Catalytic activity/Vol] 118.0 U/L Normal 73.0-393.0 [facility] Comment on above: Performed By: #### C MP, TERRENCE, LIPA ####[facility] [address]udse[address]shk[address] [place] [address]Dr. Chrissy Frazier PROF 14(COMP METB)on 022 Albumin [Mass/Vol] 4.3 g/dL Normal 3.4-5.0 [facility] Comment on above: Performed By: #### C MP, TERRENCE, LIPA ####[facility] Cwnfjttgcd17[address] [place] [address]Dr. Chrissy Frazier Albumin/Globulin [Mass ratio] 1.0 {ratio} Normal The [facility] Comment on above: Performed By: #### C MP, TERRENCE, LIPA ####[facility] Zinmbkosal[address] [place] [address]Dr. Chrissy Frazier ALP [Catalytic activity/Vol] 84 U/L Normal 46-116 The [facility] Comment on above: Performed By: #### C MP, TERRENCE, LIPA ####[facility] X[address]qlkjdsx[address] [place] [address]Dr. Chrissy Frazier ALT [Catalytic activity/Vol] 81 U/L Critically high 16-63 The [facility] Comment on above: Performed By: #### C MP, TERRENCE, LIPA ####[facility] [address]og[address] [place] [phone]. Chrissy Frazier Anion gap [Moles/Vol] 17.9 mmol/L Normal [facility] Comment on above: Performed By: #### C MP, TERRENCE, LIPA ####[facility] Wxrwjrqjzy40[address] [place] [address]Dr. Chrissy Frazier AST [Catalytic activity/Vol] 25 U/L Normal 15-37 The [facility] Comment on above: Performed By: #### C MP, TERRENCE, LIPA ####[facility] Ornfhlamnh[address] [place] [address]Dr. Chrissy Frazier Bilirubin [Mass/Vol] 0.5 mg/dL Normal 0.2-1.0 The [facility] Comment on above: Performed By: #### C MP, TERRENCE, LIPA ####[facility] Mbvlyuprhv[address] [place] [address]Dr. Chrissy Frazier Calcium [Mass/Vol] 9.6 mg/dL Normal 8.5-10.1 [facility] Comment on above: Performed By: #### C MP, TERRENCE, LIPA ####[facility] [address]ptrmtclk[address] [place] [address]Dr. Chrissy Frazier Chloride [Moles/Vol] 101 mmol/L Normal 98-107 The [facility] Comment on above: Performed By: #### C MP, TERRENCE, LIPA ####[facility] Xgbeztxhon[address] [place] [address]Dr. Chrissy Frazier CO2 [Moles/Vol] 18.6 mmol/L Critically low 21.0-32.0 The [facility] Comment on above: Performed By: #### C MP, TERRENCE, LIPA ####[facility] Aiildugclq[address] [place] [address]Dr. Chrissy Frazier Creatinine [Mass/Vol] 1.39 mg/dL Critically high 0.70-1.30 [facility] Comment on above: Performed By: #### C MP, TERRENCE, LIPA ####[facility] Lufpqkalkh[address] [place] [address]Dr. Chrissy Frazier EGFR-AF SLOVAK >60 Normal >=60 [facility] Comment on above: Performed By: #### C MP, TERRENCE, LIPA ####[facility] Upgzsntapj[address] [place] [address]Dr. Chrissy Frazier EGFR-NON AF SLOVAK 59 mL/min/1.73m2 Critically low >=60 [facility] Comment on above: Performed By: #### C MP, TERRENCE, LIPA ####[facility] Faqofnmpgj5966 [place] [address]Dr. Chrissy Frazier Globulin (S) [Mass/Vol] 4.3 g/dL Normal [facility] Comment on above: Performed By: #### C MP, TERRENCE, LIPA ####[facility] Ilrolnongm7062 [place] [address]Dr. Chrissy Frazier Glucose [Mass/Vol] 132 mg/dL Critically high 74-106 [facility] Comment on above: Performed By: #### C MP, TERRENCE, LIPA ####[facility] Q[address]yr[address]yqhq[address] [place], [place] [address]Dr. Chrissy Frazier Potassium [Moles/Vol] 3.5 mmol/L Normal 3.5-5.1 [facility] Comment on above: Performed By: #### C MP, TERRENCE, LIPA ####[facility] D[address]igrqkzz[address] [place], [place] [address]Dr. Chrissy Frazier Protein [Mass/Vol] 8.6 g/dL Critically high 6.4-8.2 [facility] Comment on above: Performed By: #### C MP, TERRENCE, LIPA ####[facility] Eetoktwwsr5[address] [place] [address]Dr. Chrissy Frazier Sodium [Moles/Vol] 134 mmol/L Critically low 136-145 [facility] Comment on above: Performed By: #### C MP, TERRENCE, LIPA ####[facility] Fibouthige5704 [place] [address]Dr. Chrissy Frazier Urea nitrogen [Mass/Vol] 8.0 mg/dL Normal 7.0-18.0 [facility] Comment on above: Performed By: #### C MP, TERRENCE, LIPA ####[facility] Sogdkdreoj[address] [place] [address]Dr. Chrissy Frazier Urea nitrogen/Creatinine [Mass ratio] 5.8 mg/mg Normal The [facility] Comment on above: Performed By: #### C TERRENCE ADAIR LIPA ####[facility] Mtevuofpbu[address] [place] [address]Dr. Chrissy Frazier XR ABD FLAT UP_PA Enoch 04-04 XR ABD FLAT UP_PA CH Normal The [facility] AMMONIAon 03-31-2022 Ammonia (P) [Moles/Vol] 19 umol/L Normal 11-32 The [facility] Comment on above: Performed By: #### A MM ####[facility] Syjrbqovuo[address] [place], [place] [address]Dr. Chrissy Freddie CBC AUTO DIFFon 03-31-2022 BASO # 0.1 103/ul Normal 0.0-0.1 The [facility] Comment on above: Performed By: #### C BC ####[facility] Kblxyngxek[address] [place], [place] [address]Dr. Chrissy Freddie Basophils/100 WBC (Bld) 0.5 % Normal 0.2-2.0 The [facility] Comment on above: Performed By: #### C BC ####[facility] [address]tz[address] [place], [place] [address]Dr. Chrissy Frazier EO # 0.2 103/ul Normal 0.0-0.7 The [facility] Comment on above: Performed By: #### C BC ####[facility] Lkyp[address]drn[address] [place], [place] [address]Dr. Tishrowan Frazier Eosinophils/100 WBC (Bld) 1.6 % Normal 0.9-7.0 The [facility] Comment on above: Performed By: #### C BC ####[facility] [address]huwxluw[address] [place], [place] [address]Dr. Chrissy Freddie Erythrocyte distribution width (RBC) [Ratio] 13.2 % Normal 11.0-15.0 The [facility] Comment on above: Performed By: #### C BC ####[facility] Fsrtcqjmgm[address] [place], [place] [address]Dr. Chrissy Frazier Hematocrit (Bld) [Volume fraction] 42.1 % Normal 42.0-54.0 The [facility] Comment on above: Performed By: #### C BC ####[facility] Rcmuwdfkxr1241 [place] [address]Dr. Chrissy Frazier Hemoglobin (Bld) [Mass/Vol] 14.3 g/dL Normal 14.0-18.0 The [facility] Comment on above: Performed By: #### C BC ####[facility] I[address]acrtbgu[address] [place] [address]Dr. Chrissy Frazier IG # 0.05 10e3/ul Critically high 0.00-0.03 [facility] Comment on above: Performed By: #### C BC ####[facility] Imojakymtx8415 [place] [address]Dr. Chrissy Frazier IG % 0.5 % Normal 0.0-0.5 The [facility] Comment on above: Performed By: #### C BC ####[facility] Gbdjxdrxzf7675 [place] [address]Dr. Chrissy Frazier LYMPH # 2.9 103/ul Normal 1.2-3.8 The [facility] Comment on above: Performed By: #### C BC ####[facility] Tjvjyzhrtn4936 [place] [address]Dr. Chrissy Frazier Lymphocytes/100 WBC (Bld) 25.7 % Normal 20.5-60.0 The [facility] Comment on above: Performed By: #### C BC ####[facility] Ppvpuhggyv86[address] [place] [address]Dr. Chrissy Frazier MANUAL DIFF REQ NO Normal [facility] Comment on above: Performed By: #### C BC ####[facility] Zztdkmqett92[address] [place] [address]Dr. Chrissy Frazier MCH (RBC) [Entitic mass] 29.2 pg Normal 25.9-34.0 The [facility] Comment on above: Performed By: #### C BC ####[facility] Hhuyxzdnat9373 [place] [address]Dr. Chrissy Frazier MCHC (RBC) [Mass/Vol] 34.0 g/dL Normal 29.9-35.2 The [facility] Comment on above: Performed By: #### C BC ####[facility] Pohojnxfhs5[address] [place] [phone]. Chrissy Frazier MCV (RBC) [Entitic vol] 85.9 fL Normal 80.0-94.0 The [facility] Comment on above: Performed By: #### C BC ####[facility] Uhkoqvhpax87[address] [place] [phone]. Chrissy Freddie MONO # 1.0 103/ul Critically high 0.3-0.8 [facility] Comment on above: Performed By: #### C BC ####[facility] Cbazlylvmw5928 [place] [address]Dr. Chrissy Frazier Monocytes/100 WBC (Bld) 8.6 % Normal 1.7-12.0 The [facility] Comment on above: Performed By: #### C BC ####[facility] Ukmpqiahva[address] [place], [place] [address]Dr. Chrissy Frazier NEUT # 7.0 103/ul Critically high 1.4-6.5 [facility] Comment on above: Performed By: #### C BC ####[facility] L[address]aezcedy[address] [place], [place] [address]Dr. Tishrowan Frazier Neutrophils/100 WBC (Bld) 63.1 % Normal 43.0-75.0 The [facility] Comment on above: Performed By: #### C BC ####[facility] Fszqggjkel480[address] [place] [phone]. Tishrowan Frazier Platelet mean volume (Bld) [Entitic vol] 10.4 fL Normal 9.5-13.5 The [facility] Comment on above: Performed By: #### C BC ####[facility] Yxxpqzxuim1232 [place] [phone]. Chrissy Frazier PLT 308 103/ul Normal 150-450 The [facility] Comment on above: Performed By: #### C BC ####[facility] Odxfoafsql[address] [place], [place] [address]Dr. Chrissy Frazier RBC 4.90 106/ul Normal 4.70-6.10 The [facility] Comment on above: Performed By: #### C BC ####[facility] Egerktgdjo9[address] [place] [address]Dr. Tishrowan Freddie WBC 11.1 103/ul Critically high 4.0-11.0 [facility] Comment on above: Performed By: #### C BC ####[facility] Zmvfcwmoza3031 [place] [address]Dr. Chrissy Frazier PROF 14(COMP METB)on 022 Albumin [Mass/Vol] 3.5 g/dL Normal 3.4-5.0 [facility] Comment on above: Performed By: #### C MP ####[facility] Wuwppidncp[address] [place], [place] [address]Dr. Chrissy Frazier Albumin/Globulin [Mass ratio] 0.9 {ratio} Normal [facility] Comment on above: Performed By: #### C MP ####[facility] Vduwbdwjqq056[address] [place], [place] [address]Dr. Tishrowan Frazier ALP [Catalytic activity/Vol] 68 U/L Normal 46-116 The [facility] Comment on above: Performed By: #### C MP ####[facility] [address]wejeciml[address] [place], [place] [address]Dr. Chrissy Frazier ALT [Catalytic activity/Vol] 113 U/L Critically high 16-63 The [facility] Comment on above: Performed By: #### C MP ####[facility] Znlbeusdbi9[address] [place], [place] [address]Dr. Chrissy Frazier Anion gap [Moles/Vol] 14.0 mmol/L Normal [facility] Comment on above: Performed By: #### C MP ####[facility] Grbeddcuez227[address] [place], [place] [address]Dr. Chrissy Frazier AST [Catalytic activity/Vol] 31 U/L Normal 15-37 [facility] Comment on above: Performed By: #### C MP ####[facility] Adjgxvpyvy[address] [place], [place] [address]Dr. Chrissy Frazier Bilirubin [Mass/Vol] 0.6 mg/dL Normal 0.2-1.0 The [facility] Comment on above: Performed By: #### C MP ####[facility] Sybxybejia[address] [place], [place] [address]Dr. Chrissy Frazier Calcium [Mass/Vol] 8.4 mg/dL Critically low 8.5-10.1 Th e [facility] Comment on above: Performed By: #### C MP ####[facility] Nfnbwngnvk[address] [place], [place] [address]Dr. Chrissy Frazier Chloride [Moles/Vol] 101 mmol/L Normal 98-107 The [facility] Comment on above: Performed By: #### C MP ####[facility] Awqaukqkqs[address] [place], [place] [address]Dr. Chrissy Frazier CO2 [Moles/Vol] 24.2 mmol/L Normal 21.0-32.0 [facility] Comment on above: Performed By: #### C MP ####[facility] Pczegnllre[address] [place], [place] [address]Dr. Chrissy Frazier Creatinine [Mass/Vol] 1.15 mg/dL Normal 0.70-1.30 The [facility] Comment on above: Performed By: #### C MP ####[facility] Mhgevlsnsc[address] [place], [place] [address]Dr. Chrissy Frazier EGFR-AF SLOVAK >60 Normal >=60 [facility] Comment on above: Performed By: #### C MP ####[facility] Pgbftikugd117[address] [place], [place] [address]Dr. Chrissy Frazier EGFR-NON AF SLOVAK >60 Normal >=60 The [facility] Comment on above: Performed By: #### C MP ####[facility] Eleyajqkxq560[address] [place], [place] [address]Dr. Chrissy Frazier Globulin (S) [Mass/Vol] 3.8 g/dL Normal The [facility] Comment on above: Performed By: #### C MP ####[facility] Mxdbmeuygd880807 [address] [place], [place] [address]Dr. Chrissy Frazier Glucose [Mass/Vol] 100 mg/dL Normal 74-106 [facility] Comment on above: Performed By: #### C MP ####[facility] [address]xq[address] [place] [address]Dr. Chrissy Frazier Potassium [Moles/Vol] 3.2 mmol/L Critically low 3.5-5.1 [facility] Comment on above: Performed By: #### C MP ####[facility] Gndpttijat2399[address] [place], [place] [address]Dr. Chrissy Frazier Protein [Mass/Vol] 7.3 g/dL Normal 6.4-8.2 [facility] Comment on above: Performed By: #### C MP ####[facility] Vgpztbzdqj329[address] [place], [place] [address]Dr. Chrissy Frazier Sodium [Moles/Vol] 136 mmol/L Normal 136-145 [facility] Comment on above: Performed By: #### C MP ####[facility] Ejmikkypex847[address] [place], [place] [address]Dr. Chrissy Frazier Urea nitrogen [Mass/Vol] 13.0 mg/dL Normal 7.0-18.0 [facility] Comment on above: Performed By: #### C MP ####[facility] Wtcrhpbunf[address] [place], [place] [address]Dr. Chrissy Frazier Urea nitrogen/Creatinine [Mass ratio] 11.3 mg/mg Normal [facility] Comment on above: Performed By: #### C MP ####[facility] Ehlsegacbj06[address] [place], [place] [address]Dr. Chrissy Frazier AMMONIAon 03-30-2022 Ammonia (P) [Mass/Vol] ug/dL Critically low 11-32 [facility] Comment on above: Performed By: #### A MM ####[facility] Tbpujljtzv09230[address] [place], [place] [address]Dr. Chrissy Frazier CBC AUTO DIFFon 03-30-2022 BASO # 0.1 103/ul Normal 0.0-0.1 [facility] Comment on above: Performed By: #### C BC ####[facility] Dycwubtpey36280[address] [place], [place] [address]Dr. Chrissy Frazier Basophils/100 WBC (Bld) 0.5 % Normal 0.2-2.0 The [facility] Comment on above: Performed By: #### C BC ####[facility] Qcrshkjavr17[address] [place] [address]Dr. Chrissy Frazier EO # 0.1 103/ul Normal 0.0-0.7 The [facility] Comment on above: Performed By: #### C BC ####[facility] Qrplgpxlix470[address] [place], [place] [address]Dr. Chrissy Frazier Eosinophils/100 WBC (Bld) 1.1 % Normal 0.9-7.0 The [facility] Comment on above: Performed By: #### C BC ####[facility] Zgsnsjozjl435[address] [place], [place] [address]Dr. Chrissy Frazier Erythrocyte distribution width (RBC) [Ratio] 13.4 % Normal 11.0-15.0 [facility] Comment on above: Performed By: #### C BC ####[facility] Ezgcrfgmpn8725[address] [place], [place] [address]Dr. Chrissy Frazier Hematocrit (Bld) [Volume fraction] 45.8 % Normal 42.0-54.0 [facility] Comment on above: Performed By: #### C BC ####[facility] Htootrjkdn465[address] [place], [place] [address]Dr. Chrissy Frazier Hemoglobin (Bld) [Mass/Vol] 14.9 g/dL Normal 14.0-18.0 The [facility] Comment on above: Performed By: #### C BC ####[facility] Kiuomnpjha310[address] [place], [place] [address]Dr. Chrissy Frazier IG # 0.05 10e3/ul Critically high 0.00-0.03 [facility] Comment on above: Performed By: #### C BC ####[facility] Zzjpgouuqr426[address] [place], [place] [address]Dr. Chrissy Frazier IG % 0.5 % Normal 0.0-0.5 The [facility] Comment on above: Performed By: #### C BC ####[facility] Xynaekeewj[address] [place], [place] [address]Dr. Chrissy Frazier LYMPH # 3.0 103/ul Normal 1.2-3.8 The [facility] Comment on above: Performed By: #### C BC ####[facility] Szhdtyisbk1498 [place] [address]Dr. Chrissy Frazier Lymphocytes/100 WBC (Bld) 30.2 % Normal 20.5-60.0 The [facility] Comment on above: Performed By: #### C BC ####[facility] Tweeikiylf[address] [place] [address]Dr. Chrissy Frazier MANUAL DIFF REQ NO Normal [facility] Comment on above: Performed By: #### C BC ####[facility] Bcltgvxyoa9684 [place] [address]Dr. Chrissy Frazier MCH (RBC) [Entitic mass] 28.4 pg Normal 25.9-34.0 The [facility] Comment on above: Performed By: #### C BC ####[facility] Hbcsjsuqrr214907 [address] [place], [place] [address]Dr. Chrissy Frazier MCHC (RBC) [Mass/Vol] 32.5 g/dL Normal 29.9-35.2 The [facility] Comment on above: Performed By: #### C BC ####[facility] Kmlflrtgjv5819[address] [place], [place] [address]Dr. Chrissy Frazier MCV (RBC) [Entitic vol] 87.4 fL Normal 80.0-94.0 The [facility] Comment on above: Performed By: #### C BC ####[facility] Eaoqqrvvrk563[address] [place], [place] [address]Dr. Chrissy Frazier MONO # 0.8 103/ul Normal 0.3-0.8 The [facility] Comment on above: Performed By: #### C BC ####[facility] Rxkvmurxge847207 [address] [place], [place] [address]Dr. Chrissy Frazier Monocytes/100 WBC (Bld) 7.9 % Normal 1.7-12.0 The [facility] Comment on above: Performed By: #### C BC ####[facility] Yymjezcfhm119007 [address] [place], [place] [address]Dr. Yirowan Frazier NEUT # 5.9 103/ul Normal 1.4-6.5 The [facility] Comment on above: Performed By: #### C BC ####[facility] Dogaqtqspy28[address] [place] [address]DrNancy Frazier Neutrophils/100 WBC (Bld) 59.8 % Normal 43.0-75.0 [facility] Comment on above: Performed By: #### C BC ####[facility] Nbobyqynod4564 [place] [address]DrNancy Frazier Platelet mean volume (Bld) [Entitic vol] 10.1 fL Normal 9.5-13.5 The [facility] Comment on above: Performed By: #### C BC ####[facility] Qrwkbsycer637507 [address] [place], [place] [address]DrNancy Frazier PLT 320 103/ul Normal 150-450 The [facility] Comment on above: Performed By: #### C BC ####[facility] Upihuvdbpd565[address] [place], [place] [address]DrNancy Frazier RBC 5.24 106/ul Normal 4.70-6.10 The [facility] Comment on above: Performed By: #### C BC ####[facility] Dhimzaquad43[address] [place], [place] [address]DrNancy Frazier WBC 9.9 103/ul Normal 4.0-11.0 [facility] Comment on above: Performed By: #### C BC ####[facility] Yvczrciske198007 [address] [place], [place] [address]Dr. Chrissy Frazier PROF 14(COMP METB)on 022 Albumin [Mass/Vol] 3.9 g/dL Normal 3.4-5.0 [facility] Comment on above: Performed By: #### C MP ####[facility] Ggmlzbxqty56[address] [place], [place] [address]DrNancy Frazier Albumin/Globulin [Mass ratio] 1.1 {ratio} Normal [facility] Comment on above: Performed By: #### C MP ####[facility] Aaelwvwxjt494907 [address] [place], [place] [address]DrNancy Lowe Frazier ALP [Catalytic activity/Vol] 88 U/L Normal 46-116 [facility] Comment on above: Performed By: #### C MP ####[facility] Drxlbyrtku3507 [place] [address]Dr. Chrissy Frazier ALT [Catalytic activity/Vol] 161 U/L Critically high 16-63 [facility] Comment on above: Performed By: #### C MP ####[facility] Hvqyecriwc998[address] [place], [place] [address]Dr. Chrissy Freddie Anion gap [Moles/Vol] 12.3 mmol/L Normal [facility] Comment on above: Performed By: #### C MP ####[facility] Iaqhwkmwlb818907 [address] [place], [place] [address]Dr. Chrissy Freddie AST [Catalytic activity/Vol] 64 U/L Critically high 15-37 [facility] Comment on above: Performed By: #### C MP ####[facility] Aznsdhxjpq437507 [address] [place], [place] [address]Dr. Chrissy Freddie Bilirubin [Mass/Vol] 0.8 mg/dL Normal 0.2-1.0 [facility] Comment on above: Performed By: #### C MP ####[facility] Genkmjoryn349607 [address] [place], [place] [address]Dr. Chrissy Freddie Calcium [Mass/Vol] 8.4 mg/dL Critically low 8.5-10.1 [facility] Comment on above: Performed By: #### C MP ####[facility] Yfwxrrnsvc34500[address] [place], [place] [address]Dr. Chrissy Freddie Chloride [Moles/Vol] 103 mmol/L Normal 98-107 The [facility] Comment on above: Performed By: #### C MP ####[facility] Zmvjnjbyip506607 [address] [place], [place] [address]Dr. Chrissy Frazier CO2 [Moles/Vol] 26.5 mmol/L Normal 21.0-32.0 [facility] Comment on above: Performed By: #### C MP ####[facility] Wbblranutl2825[address] [place], [place] [address]Dr. Chrissy Frazier Creatinine [Mass/Vol] 1.24 mg/dL Normal 0.70-1.30 [facility] Comment on above: Performed By: #### C MP ####[facility] Wxcqypwjfi6239 [place] [address]Dr. Chrissy Frazier EGFR-AF SLOVAK >60 Normal >=60 [facility] Comment on above: Performed By: #### C MP ####[facility] Dwqnxrkwca3463 [place] [address]Dr. Chrissy Freddie EGFR-NON AF SLOVAK >60 Normal >=60 [facility] Comment on above: Performed By: #### C MP ####[facility] Ayudcesidy8972 [place] [address]Dr. Chrissy Freddie Globulin (S) [Mass/Vol] 3.7 g/dL Normal [facility] Comment on above: Performed By: #### C MP ####[facility] Voxbancuib857207 [address] [place], [place] [address]Dr. Chrissy Freddie Glucose [Mass/Vol] 108 mg/dL Critically high 74-106 [facility] Comment on above: Performed By: #### C MP ####[facility] Jnufprtzvj1404 [place] [address]Dr. Chrissy Freddie Potassium [Moles/Vol] 3.8 mmol/L Normal 3.5-5.1 [facility] Comment on above: Performed By: #### C MP ####[facility] Kpghnvixgb8922 [place] [address]Dr. Chrissy Freddie Protein [Mass/Vol] 7.6 g/dL Normal 6.4-8.2 [facility] Comment on above: Performed By: #### C MP ####[facility] Pawmjeefsv8[address] [place] [address]Dr. Chrissy Frazier Sodium [Moles/Vol] 138 mmol/L Normal 136-145 [facility] Comment on above: Performed By: #### C MP ####[facility] Ufmigvibej1208 [place] [address]Dr. Chrissy Freddie Urea nitrogen [Mass/Vol] 12.0 mg/dL Normal 7.0-18.0 [facility] Comment on above: Performed By: #### C MP ####[facility] Nlhhrfsugq685[address] [place], [place] [address]Dr. Chrissy Frazier Urea nitrogen/Creatinine [Mass ratio] 9.7 mg/mg Normal [facility] Comment on above: Performed By: #### C MP ####[facility] Gyaawebzdl16300[address] [place], [place] [address]Dr. Chrissy Frazier AMMONIAon 03-29-2022 Ammonia (P) [Moles/Vol] 27 umol/L Normal 11-32 The [facility] Comment on above: Performed By: #### A MM ####[facility] Odaacikeiy44220[address] [place], [place] [address]Dr. Chrissy Frazier AMYLASEon 03-29-2022 Amylase [Catalytic activity/Vol] 29 U/L Normal 25-115 [facility] Comment on above: Performed By: #### L IPA, TERRENCE ####[facility] Zlmgstmrmt020[address] [place], [place] [address]Dr. Chrissy Frazier CBC AUTO DIFFon 03-29-2022 BASO # 0.0 103/ul Normal 0.0-0.1 [facility] Comment on above: Performed By: #### C BC ####[facility] Zvphzmyack268907 [address] [place], [place] [address]Dr. Chrissy Frazier Basophils/100 WBC (Bld) 0.2 % Normal 0.2-2.0 The [facility] Comment on above: Performed By: #### C BC ####[facility] Lixlrsnypp890[address] [place], [place] [address]Dr. Chrissy Frazier EO # 0.0 103/ul Normal 0.0-0.7 The [facility] Comment on above: Performed By: #### C BC ####[facility] Gqeumhvbjt8313[address] [place], [place] [address]Dr. Chrissy Frazier Eosinophils/100 WBC (Bld) 0.4 % Critically low 0.9-7.0 The [facility] Comment on above: Performed By: #### C BC ####[facility] Gqqhpervqu575[address] [place], [place] [address]Dr. Chrissy Frazier Erythrocyte distribution width (RBC) [Ratio] 13.6 % Normal 11.0-15.0 The [facility] Comment on above: Performed By: #### C BC ####[facility] Csvoukjujj0064 [place] [address]Dr. Chrissy Frazier Hematocrit (Bld) [Volume fraction] 45.2 % Normal 42.0-54.0 The [facility] Comment on above: Performed By: #### C BC ####[facility] Tkkymavuzb2715[address] [place], [place] [address]Dr. Chrissy Frazier Hemoglobin (Bld) [Mass/Vol] 14.8 g/dL Normal 14.0-18.0 The [facility] Comment on above: Performed By: #### C BC ####[facility] Sfmafjhhci7614[address] [place], [place] [address]Dr. Tishrowan Frazier IG # 0.03 10e3/ul Normal 0.00-0.03 The [facility] Comment on above: Performed By: #### C BC ####[facility] Iyiusoyhoo550[address] [place], [place] [address]Dr. Chrissy Frazier IG % 0.3 % Normal 0.0-0.5 The [facility] Comment on above: Performed By: #### C BC ####[facility] Aguqdhlfij799[address] [place], [place] [address]Dr. Chrissy Frazier LYMPH # 2.0 103/ul Normal 1.2-3.8 The [facility] Comment on above: Performed By: #### C BC ####[facility] Smweqamyry86[address] [place], [place] [address]Dr. Chrissy Freddie Lymphocytes/100 WBC (Bld) 18.3 % Critically low 20.5-60.0 The [facility] Comment on above: Performed By: #### C BC ####[facility] Taxujjmtvr404[address] [place], [place] [address]Dr. Tishrowan Frazier MANUAL DIFF REQ NO Normal [facility] Comment on above: Performed By: #### C BC ####[facility] Nowtugbkbv798[address] [place], [place] [address]Dr. Chrissy Frazier MCH (RBC) [Entitic mass] 28.5 pg Normal 25.9-34.0 The [facility] Comment on above: Performed By: #### C BC ####[facility] Nzsaikjxxa7366 [place] [address]Dr. Chrissy Frazier MCHC (RBC) [Mass/Vol] 32.7 g/dL Normal 29.9-35.2 The [facility] Comment on above: Performed By: #### C BC ####[facility] Tksmrrpaua[address] [place], [place] [address]Dr. Chrissy Frazier MCV (RBC) [Entitic vol] 87.1 fL Normal 80.0-94.0 The [facility] Comment on above: Performed By: #### C BC ####[facility] Vtjhvunzdn95[address] [place], [place] [address]Dr. Chrissy Frazier MONO # 0.9 103/ul Critically high 0.3-0.8 [facility] Comment on above: Performed By: #### C BC ####[facility] Ewslvovaof912[address] [place], [place] [address]Dr. Chrissy Frazier Monocytes/100 WBC (Bld) 8.6 % Normal 1.7-12.0 The [facility] Comment on above: Performed By: #### C BC ####[facility] Lyrrrlgcma397[address] [place], [place] [address]Dr. Tishrowan Frazier NEUT # 7.8 103/ul Critically high 1.4-6.5 [facility] Comment on above: Performed By: #### C BC ####[facility] Fsdcautjlq817[address] [place], [place] [address]Dr. Chrissy Frazier Neutrophils/100 WBC (Bld) 72.2 % Normal 43.0-75.0 The [facility] Comment on above: Performed By: #### C BC ####[facility] Nurbhwmbmh[address] [place], [place] [address]Dr. Chrissy Frazier Platelet mean volume (Bld) [Entitic vol] 10.1 fL Normal 9.5-13.5 The [facility] Comment on above: Performed By: #### C BC ####[facility] Fjmntrjzvq4[address] [place] [id number]. Chrissy Frazier PLT 329 103/ul Normal 150-450 The [facility] Comment on above: Performed By: #### C BC ####[facility] Dviljfxhcn6[address] [place] [phone]. Chrissy Frazier RBC 5.19 106/ul Normal 4.70-6.10 The [facility] Comment on above: Performed By: #### C BC ####[facility] Zjhainjjkt6968 [place] [phone]. Chrissy Frazier WBC 10.8 103/ul Normal 4.0-11.0 The [facility] Comment on above: Performed By: #### C BC ####[facility] Kem[address]fo[address] [place] [address]Dr. Chrissy Frazier LIPASEon 03-29-2022 Lipase [Catalytic activity/Vol] 58.0 U/L Critically low 73.0-393.0 The [facility] Comment on above: Performed By: #### L TERRENCE VICTORIA ####[facility] Ekqesdddjl23[address] [place] [address]Dr. Chrissy Frazier NM HEPATOBILIARY SCAN W EFon 03-29-2022 NM HEPATOBILIARY SCAN W EF Normal The [facility] PROF 14(COMP METB)on 022 Albumin [Mass/Vol] 3.8 g/dL Normal 3.4-5.0 [facility] Comment on above: Performed By: #### C MP ####[facility] Zdhchbiswk5[address] [place] [address]Dr. Chrissy Frazier Albumin/Globulin [Mass ratio] 1.0 {ratio} Normal The [facility] Comment on above: Performed By: #### C MP ####[facility] Rfvygtimqz95[address] [place] [phone]. Tishrowan Frazier ALP [Catalytic activity/Vol] 69 U/L Normal 46-116 The [facility] Comment on above: Performed By: #### C MP ####[facility] Akrcwpbyvq9999 [place] [address]Dr. Chrissy Frazier ALT [Catalytic activity/Vol] 117 U/L Critically high 16-63 The [facility] Comment on above: Performed By: #### C MP ####[facility] Vzfhtjyszr7036 [place] [phone]. Chrissy Frazier Anion gap [Moles/Vol] 16.7 mmol/L Normal [facility] Comment on above: Performed By: #### C MP ####[facility] Vfozgsehwp6766 [place] [phone]. Chrissy Frazier AST [Catalytic activity/Vol] 77 U/L Critically high 15-37 [facility] Comment on above: Performed By: #### C MP ####[facility] Ojbcpgqrfk8[address] [place] [phone]. Chrissy Freddie Bilirubin [Mass/Vol] 1.5 mg/dL Critically high 0.2-1.0 [facility] Comment on above: Performed By: #### C MP ####[facility] Lnqntwsfii9[address] [place] [address]Dr. Tishrowan Freddie Calcium [Mass/Vol] 8.1 mg/dL Critically low 8.5-10.1 Th [facility] Comment on above: Performed By: #### C MP ####[facility] Sxorgrodpe4237 [place] [address]Dr. Chrissy Freddie Chloride [Moles/Vol] 101 mmol/L Normal 98-107 [facility] Comment on above: Performed By: #### C MP ####[facility] Fxkwgllwmu2820 [place] [phone]. Chrissy Freddie CO2 [Moles/Vol] 24.5 mmol/L Normal 21.0-32.0 [facility] Comment on above: Performed By: #### C MP ####[facility] [facility] Qmqbvwjfkq2097 [place] [id number]. Chrissy Freddie Creatinine [Mass/Vol] 1.17 mg/dL Normal 0.70-1.30 [facility] Comment on above: Performed By: #### C MP ####[facility] Brnxfjcunc9106 [place] [phone]. Chrissy Freddie EGFR-AF SLOVAK >60 Normal >=60 [facility] Comment on above: Performed By: #### C MP ####[facility] Hcxytzmrtb1748 [place] [phone]. Chrissy Frazier EGFR-NON AF SLOVAK >60 Normal >=60 [facility] Comment on above: Performed By: #### C MP ####[facility] Wlymhzdljh6905 [place] [phone]. Chrissy Frazier Globulin (S) [Mass/Vol] 3.9 g/dL Normal [facility] Comment on above: Performed By: #### C MP ####[facility] Brymjlbssm3540 [place] [address]Dr. Chrissy Frazier Glucose [Mass/Vol] 104 mg/dL Normal 74-106 [facility] Comment on above: Performed By: #### C MP ####[facility] Eaddwlwhvs5233 [place] [address]Dr. Chrissy Frazier Potassium [Moles/Vol] 3.2 mmol/L Critically low 3.5-5.1 [facility] Comment on above: Performed By: #### C MP ####[facility] Sanfilhdel9935 [place] [address]Dr. Chrissy Frazier Protein [Mass/Vol] 7.7 g/dL Normal 6.4-8.2 The [facility] Comment on above: Performed By: #### C MP ####[facility] Xsyreaadzp0048 [place] [address]Dr. Chrissy Frazier Sodium [Moles/Vol] 139 mmol/L Normal 136-145 The [facility] Comment on above: Performed By: #### C MP ####[facility] Htggqjowbj3752 [place] [address]Dr. Chrissy Frazier Urea nitrogen [Mass/Vol] 11.0 mg/dL Normal 7.0-18.0 The [facility] Comment on above: Performed By: #### C MP ####[facility] Jrgfvmlrlb6974 [place] [address]Dr. Chrissy Frazier Urea nitrogen/Creatinine [Mass ratio] 9.4 mg/mg Normal [facility] Comment on above: Performed By: #### C MP ####[facility] Zagoolebun4022 [place] [address]Dr. Chrissy Frazier US SINGLE QUAD RT UPPERon US SINGLE QUAD RT UPPER Normal The [facility] AMMONIAon 03-28-2022 Ammonia (P) [Moles/Vol] 12 umol/L Normal 11-32 The [facility] Comment on above: Performed By: #### A MM ####[facility] Zrdbkoizhu1870 [place] [address]Dr. Chrissy Frazier CBC AUTO DIFFon 03-28-2022 BASO # 0.0 103/ul Normal 0.0-0.1 The [facility] Comment on above: Performed By: #### C BC ####[facility] Xaboqofxby[address] [place], [place] [address]Dr. Chrissy Frazier Basophils/100 WBC (Bld) 0.1 % Critically low 0.2-2.0 The [facility] Comment on above: Performed By: #### C BC ####[facility] Pcnweolcfe[address] [place], [place] [address]Dr. Chrissy Frazier EO # 0.0 103/ul Normal 0.0-0.7 The [facility] Comment on above: Performed By: #### C BC ####[facility] Lhpsikpgkr[address] [place], [place] [address]Dr. Chrissy Frazier Eosinophils/100 WBC (Bld) 0.0 % Critically low 0.9-7.0 The [facility] Comment on above: Performed By: #### C BC ####[facility] Kflttfhcya[address] [place], [place] [address]Dr. Chrissy Frazier Erythrocyte distribution width (RBC) [Ratio] 14.0 % Normal 11.0-15.0 The [facility] Comment on above: Performed By: #### C BC ####[facility] Yoffwiekbr[address] [place], [place] [address]Dr. Chrissy Frazier Hematocrit (Bld) [Volume fraction] 44.2 % Normal 42.0-54.0 The [facility] Comment on above: Performed By: #### C BC ####[facility] Jjfgvuzwly[address] [place], [place] [address]Dr. Chrissy Freddie Hemoglobin (Bld) [Mass/Vol] 14.7 g/dL Normal 14.0-18.0 The [facility] Comment on above: Performed By: #### C BC ####[facility] Ifxsmtimiw9719 [place] [address]Dr. Tishrowan Frazier IG # 0.10 10e3/ul Critically high 0.00-0.03 [facility] Comment on above: Performed By: #### C BC ####[facility] Rqxxzdxqxl8852 [place] [address]Dr. Chrissy Frazier IG % 0.5 % Normal 0.0-0.5 The [facility] Comment on above: Performed By: #### C BC ####[facility] Dffwotkchp1964 [place] [address]Dr. Chrissy Frazier LYMPH # 2.6 103/ul Normal 1.2-3.8 The [facility] Comment on above: Performed By: #### C BC ####[facility] Omtsiipdlw1129 [place] [address]Dr. Chrissy Frazier Lymphocytes/100 WBC (Bld) 13.8 % Critically low 20.5-60.0 The [facility] Comment on above: Performed By: #### C BC ####[facility] Jyupnixfjf5701 [place] [address]Dr. Tishrowan Frazier MANUAL DIFF REQ NO Normal [facility] Comment on above: Performed By: #### C BC ####[facility] Fkvmopcxlm4986 [place] [address]Dr. Chrissy Freddie MCH (RBC) [Entitic mass] 29.0 pg Normal 25.9-34.0 The [facility] Comment on above: Performed By: #### C BC ####[facility] Emfmqxlwjg1683 [place] [address]Dr. Chrissy Freddie MCHC (RBC) [Mass/Vol] 33.3 g/dL Normal 29.9-35.2 The [facility] Comment on above: Performed By: #### C BC ####[facility] Npenxilseg3621 [place] [address]Dr. Chrissy Freddie MCV (RBC) [Entitic vol] 87.2 fL Normal 80.0-94.0 The [facility] Comment on above: Performed By: #### C BC ####[facility] Jkgmekwojn9200 [place] [phone]. Chrissy Frazier MONO # 1.1 103/ul Critically high 0.3-0.8 The [facility] Comment on above: Performed By: #### C BC ####[facility] Vkcwrsvzhi5739 [place] [address]Dr. Chrissy Frazier Monocytes/100 WBC (Bld) 5.9 % Normal 1.7-12.0 The [facility] Comment on above: Performed By: #### C BC ####[facility] Jmzinebznw29[address] [place], [place] [address]Dr. Chrissy Freddie NEUT # 15.1 103/ul Critically high 1.4-6.5 The [facility] Comment on above: Performed By: #### C BC ####[facility] Iwcokubksg014[address] [place], [place] [address]Dr. Tishrowan Frazier Neutrophils/100 WBC (Bld) 79.7 % Critically high 43.0-75.0 The [facility] Comment on above: Performed By: #### C BC ####[facility] Ihqckhfxgx1882 [place] [address]Dr. Chrissy Frazier Platelet mean volume (Bld) [Entitic vol] 10.3 fL Normal 9.5-13.5 The [facility] Comment on above: Performed By: #### C BC ####[facility] Iylizebgpk[address] [place], [place] [address]Dr. Chrissy Frazier PLT 358 103/ul Normal 150-450 The [facility] Comment on above: Performed By: #### C BC ####[facility] Gnjotecmoi[address] [place], [place] [id number]. Chrissy Frazier RBC 5.07 106/ul Normal 4.70-6.10 The [facility] Comment on above: Performed By: #### C BC ####[facility] Nsynqucspc[address] [place], [place] [address]Dr. Chrissy Frazier WBC 18.9 103/ul Critically high 4.0-11.0 The [facility] Comment on above: Performed By: #### C BC ####[facility] Dvvvnexiez5719 [place] [address]DrNancy Frazier PROF 14(COMP METB)on 022 Albumin [Mass/Vol] 3.9 g/dL Normal 3.4-5.0 [facility] Comment on above: Performed By: #### C MP ####[facility] Isgkeudlgf2026 [place] [address]Dr. Chrissy Frazier Albumin/Globulin [Mass ratio] 1.1 {ratio} Normal [facility] Comment on above: Performed By: #### C MP ####[facility] Hxidegxfjs3925 [place] [address]Dr. Chrissy Frazier ALP [Catalytic activity/Vol] 65 U/L Normal 46-116 The [facility] Comment on above: Performed By: #### C MP ####[facility] Zvhuwiaitu894[address] [place], [place] [address]Dr. Chrissy Frazier ALT [Catalytic activity/Vol] 46 U/L Normal 16-63 The [facility] Comment on above: Performed By: #### C MP ####[facility] Qtaywdkspf379807 [address] [place], [place] [address]Dr. Chrissy Frazier Anion gap [Moles/Vol] 13.2 mmol/L Normal [facility] Comment on above: Performed By: #### C MP ####[facility] Ysqyobvhsa198[address] [place], [place] [address]DrNancy Frazier AST [Catalytic activity/Vol] 33 U/L Normal 15-37 The [facility] Comment on above: Performed By: #### C MP ####[facility] Xtwrxrysfm[address] [place], [place] [address]Dr. Chrissy Frazier Bilirubin [Mass/Vol] 0.8 mg/dL Normal 0.2-1.0 The [facility] Comment on above: Performed By: #### C MP ####[facility] Catdgndddv34[address] [place], [place] [address]Dr. Chrissy Frazier Calcium [Mass/Vol] 8.1 mg/dL Critically low 8.5-10.1 Th [facility] Comment on above: Performed By: #### C MP ####[facility] Iliyomxbpq5964 [place] [address]Dr. Chrissy Frazier Chloride [Moles/Vol] 102 mmol/L Normal 98-107 [facility] Comment on above: Performed By: #### C MP ####[facility] Qvshhzkfph4291 [place] [address]Dr. Chrissy Frazier CO2 [Moles/Vol] 24.0 mmol/L Normal 21.0-32.0 [facility] Comment on above: Performed By: #### C MP ####[facility] Ldsxyfomlu467[address] [place], [place] [address]Dr. Chrissy Frazier Creatinine [Mass/Vol] 1.26 mg/dL Normal 0.70-1.30 [facility] Comment on above: Performed By: #### C MP ####[facility] Hqocdqxezh197[address] [place], [place] [address]Dr. Chrissy Frazier EGFR-AF SLOVAK >60 Normal >=60 [facility] Comment on above: Performed By: #### C MP ####[facility] Vdncdbfpat448[address] [place], [place] [address]Dr. Chrissy Frazier EGFR-NON AF SLOVAK >60 Normal >=60 [facility] Comment on above: Performed By: #### C MP ####[facility] Ibrbplnrxx8344 [place] [address]Dr. Chrissy Frazier Globulin (S) [Mass/Vol] 3.7 g/dL Normal [facility] Comment on above: Performed By: #### C MP ####[facility] Hujjbghonu5031 [place] [address]Dr. Chrissy Frazier Glucose [Mass/Vol] 119 mg/dL Critically high 74-106 T [facility] Comment on above: Performed By: #### C MP ####[facility] Yhqhkrkoqf6829 [place] [address]Dr. Chrissy Frazier Potassium [Moles/Vol] 3.2 mmol/L Critically low 3.5-5.1 The [facility] Comment on above: Performed By: #### C MP ####[facility] Bojdbfjgje7617 [place] [address]Dr. Chrissy Frazier Protein [Mass/Vol] 7.6 g/dL Normal 6.4-8.2 The [facility] Comment on above: Performed By: #### C MP ####[facility] Xpplhhzfdi3549 [place] [address]Dr. Chrissy Frazier Sodium [Moles/Vol] 136 mmol/L Normal 136-145 The [facility] Comment on above: Performed By: #### C MP ####[facility] Sderoohzxy[address] [place], [place] [address]Dr. Chrissy Frazier Urea nitrogen [Mass/Vol] 14.0 mg/dL Normal 7.0-18.0 The [facility] Comment on above: Performed By: #### C MP ####[facility] Tvimjxaeju26[address] [place], [place] [address]Dr. Chrissy Frazier Urea nitrogen/Creatinine [Mass ratio] 11.1 mg/mg Normal [facility] Comment on above: Performed By: #### C MP ####[facility] Efsmhebiqj901[address] [place], [place] [address]Dr. Chrissy Freddie CBC W MANUAL DIFFon 03-27-20 22 ATYPICAL LYMPH # Normal [facility] Comment on above: Performed By: #### C BCMAN ####[facility] Jbdtdhovhr7[address] [place], [place] [address]Dr. Chrissy Frazier ATYPICAL LYMPH % Normal [facility] Comment on above: Performed By: #### C BCMAN ####[facility] Xdvhzsemwi[address] [place], [place] [address]Dr. Chrissy Frazier BAND # 0.0 103/ul Normal 0.0-0.3 The [facility] Comment on above: Performed By: #### C BCMAN ####[facility] Wnsizwvmjk5320 [place] [address]Dr. Chrissy Frazier BAND % 0 % Normal 0-5 The [facility] Comment on above: Performed By: #### C BCMAN ####[facility] Zfyuahxlvd7917 [place] [phone]. Chrissy Frazier BASOM # 0.00 103/ul Normal 0.00-0.10 The [facility] Comment on above: Performed By: #### C BCMAN ####[facility] Oliwvxqsbb9027 [place] [phone]. Chrissy Frazier BASOM % 0.0 % Critically low 0.2-2.0 The [facility] Comment on above: Performed By: #### C BCMAN ####[facility] Sbcwwncijm5712 [place] [address]Dr. Chrissy Frazier BLAST # Normal [facility] Comment on above: Performed By: #### C BCLEANDRO ####[facility] Irjcdolxux7037 [place] [address]Dr. Chrissy Frazier BLAST % Normal The [facility] Comment on above: Performed By: #### C BCLEANDRO ####[facility] Eaedewvuqh64[address] [place], [place] [address]Dr. Chrissy Frazier CORRECTED WBC Normal 4.0-11.[address] [facility] Comment on above: Performed By: #### C BCLEANDRO ####[facility] Hkykgbpstu94[address] [place], [place] [address]Dr. Chrissy Frazier EOS # 0.00 103/ul Normal 0.00-0.70 The [facility] Comment on above: Performed By: #### C BCLEANDRO ####[facility] Ldokaolntj7596 [place] [address]Dr. Chrissy Frazier EOS% 0.0 % Critically low 0.9-7.0 The [facility] Comment on above: Performed By: #### C BCLEANDRO ####[facility] Ixhkorxkok8550 [place] [address]Dr. Chrissy Frazier HCT 47.3 % Normal 42.0-54.0 The [facility] Comment on above: Performed By: #### C BCLEANDRO ####[facility] Lyufctwyof[address] [place], [place] [address]Dr. Chrissy Frazier HGB 16.4 g/dl Normal 14.0-18.0 The [facility] Comment on above: Performed By: #### C ANTONETTE ####[facility] Cpmtgewtzw8323 [place], [place] [address]Jy. Chrissy Frazier LYMPHM # 2.31 103/ul Normal 1.20-3.80 The [facility] Comment on above: Performed By: #### Silverio WHITMAN ####[facility] Rfbvduynoa5111 [place], [place] [address]On. Chrissy Frazier LYMPHM% 9.0 % Critically low 20.5-60.0 The [facility] Comment on above: Performed By: #### C ANTONETTE ####[facility] Ziystabvoe8713 [place] [address]Dr. Chrissy Frazier MCH 28.6 pg Normal 25.9-34.0 [facility] Comment on above: Performed By: #### Silverio WHITMAN ####[facility] Enyiqjlqph9873 [place] [address]Dr. Chrissy Frazier MCHC 34.7 g/dl Normal 29.9-35.2 The [facility] Comment on above: Performed By: #### Silverio WHITMAN ####[facility] Bxfotsnemx5023 [place] [address]Dr. Chrissy Frazier MCV 82.4 fL Normal 80.0-94.0 The [facility] Comment on above: Performed By: #### Silverio WHITMAN ####[facility] Xoggvezyrs3443 [place] [address]Dr. Chrissy Frazier METAMYELOCYTE # Normal [facility] Comment on above: Performed By: #### Silverio WHITMAN ####[facility] Aexnaaaart4075 [place] [address]Dr. Chrissy Frazier METAMYELOCYTE % Normal [facility] Comment on above: Performed By: #### C ANTONETTE ####[facility] Pfivfaxfwb5150 [place] [address]Dr. Chrissy Frazier MONOM# 3.85 103/ul Critically high 0.30-0.80 [facility] Comment on above: Performed By: #### Silverio WHITMAN ####[facility] Qvxzmryaoj7736 [place] [address]Dr. Chrissy Frazier MONOM% 15.0 % Critically high 1.7-12.0 [facility] Comment on above: Performed By: #### C ANTONETTE ####[facility] Xhuxilprbx9183 [place] [address]Dr. Chrissy Frazier MPV 10.6 fL Normal 9.5-13.5 The [facility] Comment on above: Performed By: #### C ANTONETTE ####[facility] Ipsjltiixk8356 [place] [address]Dr. Chrissy Frazier MYELOCYTE # Normal [facility] Comment on above: Performed By: #### C ANTONETTE ####[facility] Kbigbsrgyd0772 [place] [address]Dr. Chrissy Frazier MYELOCYTE % Normal The [facility] Comment on above: Performed By: #### C ANTONETTE ####[facility] Zrctwkdpsg8062 [place] [address]Dr. Chrissy Frazier NRBC Normal The [facility] Comment on above: Performed By: #### C ANTONETTE ####[facility] Nmhicixsuy8865 [place] [address]Dr. Chrissy Frazier PLT 471 103/ul Critically high 150-450 [facility] Comment on above: Performed By: #### C ANTONETTE ####[facility] Biqlgjxyuw8866 [place] [address]Dr. Chrissy Frazier RBC 5.74 106/ul Normal 4.70-6.10 The [facility] Comment on above: Performed By: #### C ANTONETTE ####[facility] Pwjidrtlus0063 [place] [address]Dr. Chrissy Frazier RDW 13.7 % Normal 11.0-15.0 The [facility] Comment on above: Performed By: #### C ANTONETTE ####[facility] Ggybeyitdk7091 [place] [address]Dr. Chrissy Frazier SEG # 19.53 103/ul Critically high 1.40-6.50 [facility] Comment on above: Performed By: #### C ANTONETTE ####[facility] Awkbythelh3662 [place] [address]Dr. Tishrowan Frazier SEG % 76.0 % Critically high 43.0-75.0 [facility] Comment on above: Performed By: #### C BCMAN ####[facility] Wcwwmxgagb7021 [place] [address]Dr. Tishrowan Frazier TOXIC GRANULATION SLIGHT Normal [facility] Comment on above: Result Comment: few vacoules Performed By: #### C BCLEANDRO ####[facility] Hyjxwpdpvv7364 [place] [address]Dr. Chrissy Frazier WBC 25.7 103/ul Critically high 4.0-11.0 The [facility] Comment on above: Performed By: #### C ANTONETTE ####[facility] Kutsoyaxkm8456 [place] [address]Dr. Chrissy Frazier LACTATE/LACTIC ACIDon 2021 Lactate [Moles/Vol] 2.4 mmol/L Critically high 0.4-1.9 [facility] Comment on above: Performed By: #### L ACT ####[facility] Saofdvzfmh8538 [place] [address]Dr. Chrissy Frazier Lactate [Moles/Vol] 3.5 mmol/L Critically high 0.4-1.9 The [facility] Comment on above: Performed By: #### L ACT ####[facility] Ahrrypsaky5312 [place] [address]Dr. Chrissy Frazier LIPASEon 03-27-2022 Lipase [Catalytic activity/Vol] 43.0 U/L Critically low 73.0-393.0 The [facility] Comment on above: Performed By: #### C MP, LIPA ####[facility] Xpgjtrjhkb8398 [place] [address]Dr. Chrissy Frazier PROF 14(COMP METB)on 022 Albumin [Mass/Vol] 4.7 g/dL Normal 3.4-5.0 The [facility] Comment on above: Performed By: #### C MP, LIPA ####[facility] Sydkcmcasn9762 [place] [address]Dr. Chrissy Frazier Albumin/Globulin [Mass ratio] 1.1 {ratio} Normal [facility] Comment on above: Performed By: #### C MP, LIPA ####[facility] Tkuxzalfmf9861 [place] [address]Dr. Chrissy Frazier ALP [Catalytic activity/Vol] 69 U/L Normal 46-116 [facility] Comment on above: Performed By: #### C MP, LIPA ####[facility] [address] [place] [address]Dr. Chrissy Frazier ALT [Catalytic activity/Vol] 47 U/L Normal 16-63 [facility] Comment on above: Performed By: #### C MP, LIPA ####[facility] [address] [place], [place] [address]Dr. Chrissy Freddie Anion gap [Moles/Vol] 23.2 mmol/L Normal [facility] Comment on above: Performed By: #### C MP, LIPA ####[facility] Mbexfelqqk[address] [place], [place] [address]Dr. Chrissy Freddie AST [Catalytic activity/Vol] 23 U/L Normal 15-37 [facility] Comment on above: Performed By: #### C MP, LIPA ####[facility] Iwe[address] [place], [place] [address]Dr. Chrissy Freddie Bilirubin [Mass/Vol] 0.7 mg/dL Normal 0.2-1.0 [facility] Comment on above: Performed By: #### C MP, LIPA ####[facility] [address] [place], [place] [address]Dr. Chrissy Freddie Calcium [Mass/Vol] 9.2 mg/dL Normal 8.5-10.1 [facility] Comment on above: Performed By: #### C MP, LIPA ####[facility] Sugxcthoez[address] [place], [place] [address]Dr. Tishrowan Freddie Chloride [Moles/Vol] 97 mmol/L Critically low 98-107 [facility] Comment on above: Performed By: #### C MP, LIPA ####[facility] Oibmisqogr[address] [place], [place] [address]Dr. Yirowan Frazier CO2 [Moles/Vol] 18.2 mmol/L Critically low 21.0-32.0 [facility] Comment on above: Performed By: #### C MP, LIPA ####[facility] [address] [place] [address]Dr. Chrissy Frazier Creatinine [Mass/Vol] 1.77 mg/dL Critically high 0.70-1.30 [facility] Comment on above: Performed By: #### C MP, LIPA ####[facility] [address] [place], [place] [address]Dr. Chrissy Frazier EGFR-AF SLOVAK 54 mL/min/1.73m2 Critically low >=60 [facility] Comment on above: Performed By: #### C MP, LIPA ####[facility] S[address] [place], [place] [address]Dr. Chrissy Frazier EGFR-NON AF SLOVAK 45 mL/min/1.73m2 Critically low >=60 [facility] Comment on above: Performed By: #### C MP, LIPA ####[facility] Il[address]exj[address] [place], [place] [address]Dr. Chrissy Frazier Globulin (S) [Mass/Vol] 4.4 g/dL Normal [facility] Comment on above: Performed By: #### C MP, LIPA ####[facility] Exputirstv[address] [place], [place] [address]Dr. Chrissy Frazier Glucose [Mass/Vol] 131 mg/dL Critically high 74-106 [facility] Comment on above: Performed By: #### C MP, LIPA ####[facility] [address] [place], [place] [address]Dr. Chrissy Frazier Potassium [Moles/Vol] 3.4 mmol/L Critically low 3.5-5.1 [facility] Comment on above: Performed By: #### C MP, LIPA ####[facility] [address]rgblewcje[address] [place], [place] [address]Dr. Chrissy Frazier Protein [Mass/Vol] 9.1 g/dL Critically high 6.4-8.2 [facility] Comment on above: Performed By: #### C MP, LIPA ####[facility] [address] [place], [place] [address]Zo. Chrissy Frazier Sodium [Moles/Vol] 135 mmol/L Critically low 136-145 [facility] Comment on above: Performed By: #### C MP, LIPA ####[facility] [address] [place], [place] [address]Vj. Chrissy Frazier Urea nitrogen [Mass/Vol] 19.0 mg/dL Critically high 7.0-18.0 [facility] Comment on above: Performed By: #### C MANA, LIPA ####[facility] [address] [place] [id number]. Chrissy Frazier Urea nitrogen/Creatinine [Mass ratio] 10.7 mg/mg Normal [facility] Comment on above: Performed By: #### C MANA, LIPA ####[facility] [address] [place] [id number]. Chrissy Frazier BMPon 11-03-2020 Anion gap [Moles/Vol] 14 mmol/L Normal 6-16 [facility] Comment on above: Performed By: #### 2 [id number], [id number], [id number] #### [facility] [address] [place] [address] Calcium [Mass/Vol] 9.0 mg/dL Normal 8.9-11.1 [facility] Comment on above: Performed By: #### 2 [id number], [id number], [id number] #### [facility] [address] [place] [address] Chloride [Moles/Vol] 104 mmol/L Normal 101-111 [facility] Comment on above: Performed By: #### 2 044846, [id number], [id number] #### [facility] [address] [place] [address] CO2 [Moles/Vol] 21 mmol/L Normal 21-31 [facility] Comment on above: Performed By: #### 2 745395, [id number], [id number] #### [facility] [address] [place] [address] Creatinine [Mass/Vol] 1.3 mg/dL Normal 0.5-1.3 [facility] Comment on above: Performed By: #### 2 435264, [id number], [id number] #### [facility] [address] [place] [address] Glucose [Mass/Vol] 111 mg/dL Normal 55-199 [facility] Comment on above: Result Comment: If t his glucose result represents a fasting glucose, interpretation should refer to the following reference range: 55-99 mg/dL Performed By: #### 2 [id number], [id number], [id number] #### [facility] [address] [place] [address] Potassium [Moles/Vol] 2.9 mmol/L Low 3.5-5.3 [facility] Comment on above: Performed By: #### 2 376114, [id number], [id number] #### [facility] [address] [place] [address] Sodium [Moles/Vol] 136 mmol/L Normal 135-145 [facility] Comment on above: Performed By: #### 2 488532, 0833039, [id number] #### [facility] [address] [place] [address] Urea nitrogen [Mass/Vol] 14 mg/dL Normal 5-21 [facility] Comment on above: Performed By: #### 2 847843, 0548374, [id number] #### [facility] [address] [place] [address] Urea nitrogen/Creatinine [Mass ratio] 11 No Units Normal 10-20 [facility] Comment on above: Performed By: #### 2 873462, [id number], [id number] #### [facility] [address] [place] [address] Lipase Levelon 11-03-2020 Lipase [Catalytic activity/Vol] 66 unit/L High 13-58 [facility] Comment on above: Performed By: #### 2 429755, 1558903, [id number] #### [facility] [address] [place] [address] Physician Orderon 11-03-2020 Physician Order [id number] 3#1.00CD:127 Normal [facility] eGFRon 11-03-2020 GFR/1.73 sq M predicted among blacks MDRD (S/P/Bld) [Vol rate/Area] mL/min/{1.73_m2} Normal >=59 [facility] Comment on above: Order Comment: Order added by Discern Expert. Result Comment: eGFR is race adjusted. AA=. Performed By: #### 2 [id number], [id number], [id number] #### [facility] [address] [place] [address] GFR/1.73 sq M predicted among non-blacks MDRD (S/P/Bld) [Vol rate/Area] mL/min/{1.73_m2} Normal >=59 [facility] Comment on above: Order Comment: Order added by Discern Expert. Result Comment: Human Resource Officer lindsay kidney disease could be indicated at eGFR's of less than 60 mL/min/1.73m2. Kidney failure is indicated at less than 15 mL/min/1.73m2. Performed By: #### 2 188117, [id number], [id number] #### [facility] [address] [place] [address] Encounters Encounter Date Encounter Type Care Provider Facility Start: 05-16-2024 End: 05-16-2024 ambulatory TUNG NORTHEIM Not Available Start: 03-07-2024 End: 03-07-2024 ambulatory TUNG NORTHEIM Not Available Start: 03-30-2023 ambulatory Luis Angel Muniz cility:[facility] Start: 01-03-2023 End: 01-04-[address] MELODY MARIO . Facility: Start: 01-03-2023 End: 01-04-2023 ambulatory RAQUEL BANKS Facility:[facility] Start: 12-29-2022 End: 12-30-[address] MELODY MARIO . Facility:[facility] Start: 12-13-2022 End: 12-14-2022 ambulatory [facility] Start: 11-24-2022 End: 11-24-2022 ambulatory [facility] Start: 11-16-2022 End: 11-17-[address] [...] Date Payer Category Payer Self-pay 1990 Unknown [id number] 01.06. [id number] 1990 Unknown [id number] 1990 Unknown [id number] 0.1.303035.3.579.2 1990 Unknown [id number] 0.1.756707.3.579.2593 1990 Unknown [id number] ..[id number] 0.1.643437.3.579.259 1990 Unknown [id number] 2.16.84 0.1.239457.3.579.2.593 1990 Unknown [id number] 2.16.84 0.1.150563.3.579.2.593 1990 Unknown [id number] 2.16.84 0.1.515462.3.579.2.593 1990 Unknown [id number] 2.16.84 0.1.917014.3.579.2.593 1990 Unknown [id number] 2.16.84 0.1.026385.3.579.2.593 1990 Unknown [id number] 2.16.84 0.1.667288.3.579.2.593 1990 Unknown [id number] 2.16.84 0.1.434099.3.579.2.593 1990 Unknown [id number] 2.16.84 0.1.171745.3.579.2.593 1990 Unknown [id number] 2.16.84 0.1.178752.3.579.2.1259 1990 Unknown [id number] 2.16.84 0.1.951676.3.579.2.1259 1959 Private Health Insurance [id number] Unknown [id number] 2.16.8 40.1.273612.3.579.2.531 Progress note 11-24-2022 Note Date & Type [...] factor modification -Plan (more content not included)... [facility] Progress note 11-24-2022 Note Date & [...] All other systems reviewed and are negative. [facility] Summary Purpose Family History No Family [...] section and content) DATE CREATED AUTHOR 11/04/2020 [facility] DATE CREATED AUTHOR AUTHOR'S ORGANIZ ATION 01/08/2023 [facility] DATE CREATED AUTHOR AUTHOR'S ORGANIZ ATION 02/07/2023 [facility] DATE CREATED AUTHOR AUTHOR'S ORGANIZ ATION 04/01/2023 [facility] DATE CREATED AUTHOR AUTHOR'S ORGANIZ ATION 05/17/2024 [facility] FOR RECORDS PERTAINING TO PATIENTS WHO [...] BE BASED ON THE PRIMARY CLINICAL RECORDS. [employer] provides no warranty or guarantee of the accuracy or completeness of information in this document.
[2024-07-17] MEDS: LACTATED RINGER'S SOLUTION 1,000 ML 1000 ML IV ×2 (05:02→06:59)
[2024-07-17] MEDS: ONDANSETRON PF 4 MG/2 ML VIAL IV (05:03)
[2024-07-17 05:04] LABS: Alanine Aminotransferase 38 U/L (16-63); Albumin Globulin Ratio 1.1; Albumin Level 4.1 g/dL (3.4-5.0); Alkaline Phosphatase 97 U/L (46-116); Anion Gap 21.9; Aspartate Amino Transferase 18 U/L (15-37); BUN Creatinine Ratio 8.9; Bilirubin Total 0.6 mg/dL (0.2-1.0); Calcium 8.9 mg/dL (8.5-10.1); Carbon Dioxide 20.3 mmol/L (21.0-32.0); Chloride 101 mmol/L (98-107); Estimated GFR (African America >60 (>=60); Estimated GFR (Non-African Ame >60 (>=60); Globulin 3.7 g/dL; Glucose 132 mg/dL (74-106); Potassium 3.2 mmol/L (3.5-5.1); Sodium 140 mmol/L (136-145); Total Protein 7.8 g/dL (6.4-8.2)
[2024-07-17 05:05] LABS: Troponin I High Sensitivity 6.9 pg/mL (4.0-76.1)
[2024-07-17] MEDS: HALOPERIDOL LACTATE 5 MG/ML VIAL IV (05:05)
[2024-07-17 05:08] LABS: Lactate/Lactic Acid 2.1 mmol/L (0.4-2.0)
--- NOTE | 2024-07-17 05:15 | CT_ITS ---
[address] [address] Patient Name: PAULINA CHARLES MRN: [id number] date: 1990 Sex: M Assigned Patient Location: ER Current Patient Location: Accession/Order Number: [id number] Exam Date: 07/17/2024 05:35 Report Date: 07/17/2024 06:10 At the request of: ALEXANDRA MARKER Procedure: CT abdomen pelvis w con EXAMINATION: CT abdomen pelvis w con HISTORY: abd pain , N/V/D COMPARISON: CT abdomen pelvis 07/02/2022 TECHNIQUE: Axial, Coronal, and Sagittal images were obtained without and/or with IV contrast as indicated by examination type. Dose reduction techniques were achieved by using automated exposure control and/or adjustment of mA and/or kV according to patient size and/or use of iterative reconstruction technique. FINDINGS: LUNG BASES: No visible pulmonary or pleural disease. LIVER: No enlargement, atrophy, suspicious density, or significant focal lesion. BILIARY: No dilatation or calcification. PANCREAS: No lesion, fluid collection, or abnormal duct dilatation. SPLEEN: No enlargement or focal lesion. ADRENALS: No mass or enlargement. KIDNEYS: No mass, obstruction, or calcification. BOWEL/MESENTERY: Fluid-filled stomach and proximal loops of small bowel without appreciable obstruction or suspicious wall thickening. Scattered fluid levels within the colon. No visible mass, obstruction, or bowel wall thickening. Normal appendix. AORTA/VASCULAR: No aneurysm or dissection. RETROPERITONEUM: No mass or adenopathy. LYMPH NODES: No adenopathy. URINARY BLADDER: No visible focal wall thickening, lesion, or calculus. PELVIC ORGANS: No visible mass. Pelvic organs appropriate for patient age. ABDOMINAL WALL: No mass or hernia. BONES: No bony lesion or fracture. OTHER: Negative. CT/CT abdomen pelvis w con IMPRESSION: 1. Fluid within stomach, small bowel, and colon compatible with patient history. Possible enteritis. No obstruction or significant inflammatory changes. 2. Otherwise unremarkable abdomen and pelvis. Electronically authenticated by: KYREE DOHERTY Date: 07/17/2024 06:10
[2024-07-17] MEDS: DICYCLOMINE HCL 20 MG/2 ML VIAL IM (05:53)
[2024-07-17] MEDS: PROMETHAZINE HCL 25 MG in 0.9 % SODIUM CHLORIDE 50 ML 204 MG IV (06:25)
[2024-07-17 07:53] LABS: Lactate/Lactic Acid 1.8 mmol/L (0.4-2.0)
--- OUTSIDE RECORDS SUMMARY | 2024-07-17 08:29 | XMS_ITS | CCD ---
Author Organization [facility] CliniSymo Care Team Providers Care Relay Tester Name Role Phone RAQUEL BANKS Referring Unavailable [...] DR OLIVER Admitting Unavailable WEST, DR RAPHAEL Lemno Consulting Unavailable Michaels, K Consulting Unavailable HOY [...] to adverse reactions to drug (disorder) 09-28-20 [facility] Repository (1 source) Sulfamethoxazole / Trimethoprim; Translations: [SULFAMETHOXAZOLE-TR IMETHOPRIM] Drug Allergy 01-27-20 [facility] Repository (1 source) Clarithromycin Drug Allergy [facility] Repository (1 source) Sulfamethoxazole / Trimethoprim Drug Allergy 05-27-20 17 [facility] Repository (1 source) Sulfamethoxazole Drug Allergy 03-20-20 [facility] Repository (1 source) Trimethoprim Drug Allergy 03-20-20 [facility] Repository Problems Active Problems Problem Classification Problem [...] Episodic Other aftercare (1 source) 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 Chrissy Frazier AMYLASEon 01-04-2023 Amylase [Catalytic activity/Vol] 34 U/L Normal 25-115 [facility] Comment on above: Performed By: #### A MY ####[facility] Bxkrlhtxgu[address] [place], [place] [address]Dr. Chrissy Freddie CBC AUTO DIFFon 01-04-2023 BASO # 0.0 103/ul Normal 0.0-0.1 [facility] Comment on above: Performed By: #### C BC ####[facility] Irxhqyhgeh[address] [place], [place] [address]Dr. Chrissy Frazier Basophils/100 WBC (Bld) 0.1 % Critically low 0.2-2.0 [facility] Comment on above: Performed By: #### C BC ####[facility] Tvpzwuwnud[address] [place], [place] [address]Dr. Tishrowan Frazier EO # 0.0 103/ul Normal 0.0-0.7 [facility] Comment on above: Performed By: #### C BC ####[facility] Aufrbcbptr24[address] [place], [place] [address]Dr. Chrissy Frazier Eosinophils/100 WBC (Bld) 0.1 % Critically low 0.9-7.0 [facility] Comment on above: Performed By: #### C BC ####[facility] Jfojqllqyv24[address] [place], [place] [address]DrNancy Frazier Erythrocyte distribution width (RBC) [Ratio] 14.0 % Normal 11.0-15.0 [facility] Comment on above: Performed By: #### C BC ####[facility] Qdgkoivwck458[address] [place], [place] [address]Dr. Chrissy Frazier Hematocrit (Bld) [Volume fraction] 40.4 % Critically low 42.0-54.0 [facility] Comment on above: Performed By: #### C BC ####[facility] Nqlbbpybwf[address] [place] [address]Dr. Chrissy Frazier Hemoglobin (Bld) [Mass/Vol] 13.8 g/dL Critically low 14.0-18.0 [facility] Comment on above: Performed By: #### C BC ####[facility] Gikebkznfm33[address] [place] [address]Dr. hCrissy Freddie IG # 0.05 10e3/ul Critically high 0.00-0.03 [facility] Comment on above: Performed By: #### C BC ####[facility] Otkrmrghni[address] [place] [address]Dr. Tishrowan Frazier IG % 0.3 % Normal 0.0-0.5 [facility] Comment on above: Performed By: #### C BC ####[facility] Avrklgccnw2975[address] [place], [place] [address]Dr. Chrissy Frazier LYMPH # 1.7 103/ul Normal 1.2-3.8 [facility] Comment on above: Performed By: #### C BC ####[facility] Ydfyojeorh6943 [place] [address]Dr. Chrissy Freddie Lymphocytes/100 WBC (Bld) 11.9 % Critically low 20.5-60.0 [facility] Comment on above: Performed By: #### C BC ####[facility] Dlywgjmkvz87[address] [place] [address]Dr. Chrissy Frazier MANUAL DIFF REQ NO Normal [facility] Comment on above: Performed By: #### C BC ####[facility] Ftsgsyvgiy5[address] [place] [id number]. Chrissy Freddie MCH (RBC) [Entitic mass] 29.3 pg Normal 25.9-34.0 [facility] Comment on above: Performed By: #### C BC ####[facility] Ryqokcikmz0717 [place] [id number]. Tishrowan Frazier MCHC (RBC) [Mass/Vol] 34.2 g/dL Normal 29.9-35.2 [facility] Comment on above: Performed By: #### C BC ####[facility] Fobzstxjdt70[address] [place] [id number]. Chrissy Frazier MCV (RBC) [Entitic vol] 85.8 fL Normal 80.0-94.0 [facility] Comment on above: Performed By: #### C BC ####[facility] Arobcggrgf9203 [place] [id number]. Chrissy Freddie MONO # 0.6 103/ul Normal 0.3-0.8 [facility] Comment on above: Performed By: #### C BC ####[facility] Lzdbmtkmip64[address] [place] [address]Dr. Chrissy Freddie Monocytes/100 WBC (Bld) 4.2 % Normal 1.7-12.0 [facility] Comment on above: Performed By: #### C BC ####[facility] Sntizklzcy387[address] [place], [place] [address]Dr. Chrissy Frazier NEUT # 12.0 103/ul Critically high 1.4-6.5 [facility] Comment on above: Performed By: #### C BC ####[facility] Evbhkjccpm3[address] [place], [place] [address]Dr. Tishrowan Frazier Neutrophils/100 WBC (Bld) 83.4 % Critically high 43.0-75.0 [facility] Comment on above: Performed By: #### C BC ####[facility] Lokyotmwyv378[address] [place], [place] [address]Dr. Chrissy Freddie Platelet mean volume (Bld) [Entitic vol] 10.4 fL Normal 9.5-13.5 [facility] Comment on above: Performed By: #### C BC ####[facility] Xsepldshsz96[address] [place], [place] [address]Dr. Chrissy Frazier PLT 313 103/ul Normal 150-450 [facility] Comment on above: Performed By: #### C BC ####[facility] Hemwnlssfz027[address] [place] [id number]. Chrissy Frazier RBC 4.71 106/ul Normal 4.70-6.10 [facility] Comment on above: Performed By: #### C BC ####[facility] Ohfrormioc8645 [place] [id number]. Chrissy Frazier WBC 14.4 103/ul Critically high 4.0-11.0 [facility] Comment on above: Performed By: #### C BC ####[facility] Mgggdtvrvd5582 [place] [id number]. Chrissy Frazier CULTURE URINEon 01-04-2023 CULTURE URINE Culture Observations: NO GROWTH. Normal [facility] Comment on above: Performed By: #### U RCX ####[facility] Jlclgfcbjh6[address] [place] [address]Dr. Chrissy Frazier DRUG SCREEN RAPID (URINE)on 01-04-2023 AMP Negative Normal NEGATIVE [facility] Comment on above: Performed By: #### D REYES, UAMIC ####[facility] Fdonzrwuel6[address] [place] [address]Dr. Chrissy Frazier BAR Negative Normal NEGATIVE [facility] Comment on above: Performed By: #### D REYES, UAMIC ####[facility] Ftfqosrsnj5494 [place] [address]Dr. Chrissy Frazier BUP Negative Normal NEGATIVE [facility] Comment on above: Performed By: #### D CHAYAD, UAMIC ####[facility] Zkygnyvipa5624 [place] [address]Dr. Chrissy Frazier BZO Positive Abnormal NEGATIVE [facility] Comment on above: Performed By: #### D REYES, UAMIC ####[facility] Zrbigtnxtz5542 [place] [address]Dr. Chrissy Frazier LAUREN Negative Normal NEGATIVE [facility] Comment on above: Performed By: #### D REYES, UAMIC ####[facility] Nmeckyasbv1814 [place] [address]Dr. Chrissy Frazier CUT-OFFS SEE BELOW Normal [facility] Comment on above: Result Comment: [...] ng/mL Performed By: #### Amelie CHAMBERS, UAMIC ####[facility] Cdaxixrxxq94[address] [place], [place] [address]Dr. [facility] DRUG CUT HEADER DRUG CLASS TEST SYSTEM CUT-OFF CONCENTRATIONS ARE FOLLOWS: Normal [facility] Comment on above: Performed By: #### Amelie CHAMBERS UAMIC ####[facility] Grwlpsmivx240[address] [place], [place] [address]Dr. Chrissy [facility] mAMP Negative Normal NEGATIVE [facility] Comment on above: Performed By: #### Amelie CHAMBERS UAMIC ####[facility] Xsvzoybcsi833[address] [place], [place] [address]Dr. [facility] MTD Negative Normal NEGATIVE [facility] Comment on above: Performed By: #### Amelie CHAMBERS, UAMIC ####[facility] Kzrkejlnce7075[address] [place], [place] [address]Dr. [facility] OPI Negative Normal NEGATIVE [facility] Comment on above: Performed By: #### Amelie CHAMBERS, UAMIC ####[facility] Yojukcryrv57[address] [place], [place] [address]Dr. [facility] OXY Negative Normal NEGATIVE [facility] Comment on above: Performed By: #### Amelie CHAMBERS, UAMIC ####[facility] Rlmcrwkkoq4818[address] [place], [place] [address]Dr. [facility] PCP Negative Normal NEGATIVE [facility] Comment on above: Performed By: #### Amelie CHAMBERS, UAMIC ####[facility] Wlstgtaxwp44[address] [place], [place] [address]Dr. [facility] PPX Negative Normal NEGATIVE [facility] Comment on above: Performed By: #### D REYES UAMIC ####[facility] Xrruyrwrea76[address] [place] [address]Dr. Chrissy Frazier TCA Positive Abnormal NEGATIVE [facility] Comment on above: Performed By: #### D REYES UAMIC ####[facility] Yvaifmkxdj0663 [place] [address]Dr. Chrissy Frazier THC Positive Abnormal NEGATIVE [facility] Comment on above: Performed By: #### D REYES UAMIC ####[facility] Aenixdwbwc0572 [place] [address]Dr. Chrissy Frazier LIPASEon 01-04-2023 Lipase [Catalytic activity/Vol] 57.0 U/L Critically low 73.0-393.0 [facility] Comment on above: Performed By: #### L IPA ####[facility] Iivpijvgun[address] [place], [place] [address]Dr. Chrissy Frazier PROF 14(COMP METB)on 023 Albumin [Mass/Vol] 3.6 g/dL Normal 3.4-5.0 [facility] Comment on above: Performed By: #### C MP ####[facility] Yzdxbivrdy[address] [place], [place] [address]Dr. Chrissy Frazier Albumin/Globulin [Mass ratio] 1.0 {ratio} Normal [facility] Comment on above: Performed By: #### C MP ####[facility] Lofxbtedun[address] [place], [place] [address]Dr. Chrissy Frazier ALP [Catalytic activity/Vol] 67 U/L Normal 46-116 [facility] Comment on above: Performed By: #### C MP ####[facility] Gyxygneaaw4064[address] [place], [place] [address]Dr. Chrissy Frazier ALT [Catalytic activity/Vol] 26 U/L Normal 16-63 [facility] Comment on above: Performed By: #### C MP ####[facility] Omntuaorkj1243 [place] [address]Dr. Chrissy Frazier Anion gap [Moles/Vol] 16.3 mmol/L Normal [facility] Comment on above: Performed By: #### C MP ####[facility] Xusxvayeps6253 [place] [id number]. Chrissy Frazier AST [Catalytic activity/Vol] 17 U/L Normal 15-37 [facility] Comment on above: Performed By: #### C MP ####[facility] Szkurssmoe4049 [place] [id number]. Chrissy Frazier Bilirubin [Mass/Vol] 0.4 mg/dL Normal 0.2-1.0 [facility] Comment on above: Performed By: #### C MP ####[facility] Ncdvalzxzb444[address] [place], [place] [address]Dr. Chrissy Frazier Calcium [Mass/Vol] 8.7 mg/dL Normal 8.5-10.1 [facility] Comment on above: Performed By: #### C MP ####[facility] Xfspfleafk[address] [place], [place] [address]Dr. Chrissy Frazier Chloride [Moles/Vol] 106 mmol/L Normal 98-107 [facility] Comment on above: Performed By: #### C MP ####[facility] Bfszgirxgw017[address] [place], [place] [address]Dr. Chrissy Frazier CO2 [Moles/Vol] 22.6 mmol/L Normal 21.0-32.0 [facility] Comment on above: Performed By: #### C MP ####[facility] Hgvfcdlsim234[address] [place], [place] [address]Dr. Chrissy Frazier Creatinine [Mass/Vol] 0.99 mg/dL Normal 0.70-1.30 [facility] Comment on above: Performed By: #### C MP ####[facility] Vyltdjdosg6801 [place] [id number]. Chrissy Frazier EGFR-AF BAHAMIAN >60 Normal >=60 [facility] Comment on above: Performed By: #### C MP ####[facility] Zvxikxbuui5129 [place] [address]Dr. Chrissy Frazier EGFR-NON AF BAHAMIAN >60 Normal >=60 [facility] Comment on above: Performed By: #### C MP ####[facility] Axoywkadpt4742 [place] [address]Dr. Chrissy Frazier Globulin (S) [Mass/Vol] 3.6 g/dL Normal [facility] Comment on above: Performed By: #### C MP ####[facility] Orfoylcwjg1719 [place] [address]Dr. Chrissy Frazier Glucose [Mass/Vol] 138 mg/dL Critically high 74-106 [facility] Comment on above: Performed By: #### C MP ####[facility] Ozmlulgbyk9540 [place] [address]Dr. Chrissy Frazire Potassium [Moles/Vol] 3.9 mmol/L Normal 3.5-5.1 [facility] Comment on above: Performed By: #### C MP ####[facility] Jdcbqgvzdr[address] [place], [place] [address]Dr. Chrissy Frazier Protein [Mass/Vol] 7.2 g/dL Normal 6.4-8.2 [facility] Comment on above: Performed By: #### C MP ####[facility] Pykudidcyz8[address] [place], [place] [address]Dr. Chrissy Frazier Sodium [Moles/Vol] 141 mmol/L Normal 136-145 [facility] Comment on above: Performed By: #### C MP ####[facility] Dddkzfnkiy90[address] [place], [place] [address]Dr. Chrissy Frazier Urea nitrogen [Mass/Vol] 10.0 mg/dL Normal 7.0-18.0 [facility] Comment on above: Performed By: #### C MP ####[facility] Zkqzpazhmp[address] [place], [place] [address]Dr. Chrissy Frazier Urea nitrogen/Creatinine [Mass ratio] 10.1 mg/mg Normal [facility] Comment on above: Performed By: #### C MP ####[facility] Knkwsonpvq313[address] [place], [place] [address]Dr. Chrissy Frazier UA RANDOM W/MICROSCOPICon BACTERIA TRACE Abnormal NONE SEEN [facility] Comment on above: Performed By: #### D REYES, UAMIC ####[facility] Gkmxmeuffa6104 [place] [address]Dr. Chrissy Frazier Bilirubin Ql (U) Negative Normal NEGATIVE [facility] Comment on above: Performed By: #### Amelie CHAMBERS, UAMIC ####[facility] Svfkvgozky[address] [place], [place] [address]Dr. Chrissy Frazier CAST NONE SEEN Normal NONE SEEN [facility] Comment on above: Performed By: #### Amelie CHAMBERS, UAMIC ####[facility] Butmygdjlv428[address] [place], [place] [address]Dr. Chrissy Frazier Clarity (U) CLEAR Normal CLEAR [facility] Comment on above: Performed By: #### Amelie CHAMBERS, UAMIC ####[facility] Glwruayekm7920[address] [place], [place] [address]Dr. Chrissy Frazier Color (U) YELLOW Normal YELLOW [facility] Comment on above: Performed By: #### Amelie CHAMBERS, UAMIC ####[facility] Yhycisdvmn[address] [place], [place] [address]Dr. Chrissy Frazier Crystals LM Nom (Urine sed) NONE SEEN Normal NONE SEEN [facility] Comment on above: Performed By: #### Amelie CHAMBERS, UAMIC ####[facility] Pkevthusol[address] [place], [place] [address]Dr. Chrissy Frazier Epithelial cells LM Ql (Urine sed) NONE SEEN Normal NONE SEEN /RARE [facility] Comment on above: Performed By: #### Amelie CHAMBERS, UAMIC ####[facility] Vvjtgodxph57[address] [place], [place] [address]Dr. Chrissy Frazier Glucose Ql (U) Negative Normal NEGATIVE [facility] Comment on above: Performed By: #### D REYES, UAMIC ####[facility] Sroceitunn57[address] [place], [place] [address]Dr. Chrissy Frazier Hemoglobin Ql (U) Negative Normal NEGATIVE [facility] Comment on above: Performed By: #### Amelie CHAMBERS, UAMIC ####[facility] Louaxqaeyl422[address] [place], [place] [address]Dr. Chrissy Frazier Ketones Ql (U) 15 mg/dl Abnormal NEGATIVE [facility] Comment on above: Performed By: #### Amelie CHAMBERS UAMIC ####[facility] Wiumpnhhvu4904 [place] [address]Dr. Chrissy Frazier LEUKOCYTES Negative Normal NEGATIVE [facility] Comment on above: Performed By: #### Amelie CHAMBERS UAMIC ####[facility] Vlecorkugy[address] [place] [address]Dr. Chrissy Frazier MUCOUS NONE SEEN Normal NONE SEEN [facility] Comment on above: Performed By: #### Amelie CHAMBERS UAMIC ####[facility] Ckfcpmyfns4094 [place] [address]Dr. Chrissy Frazier Nitrite Ql (U) Negative Normal NEGATIVE [facility] Comment on above: Performed By: #### Amelie CHAMBERS UAMIC ####[facility] Xgtynefxhg9446 [place] [address]Dr. Chrissy Frazier pH (U) 6.5 [pH] Normal 5-9 [facility] Comment on above: Performed By: #### Amelie CHAMBERS UAMIC ####[facility] Wfmjlahcdm[address] [place], [place] [address]Dr. Chrissy Frazier RBC NONE SEEN Abnormal 0-2 [facility] Comment on above: Performed By: #### Amelie CHAMBERS UAMIC ####[facility] Qyzsuiavil8[address] [place], [place] [address]Dr. Chrissy Frazier SPEC GRAVITY 1.020 Normal 1.005-<=1.025 [facility] Comment on above: Performed By: #### Amelie CHAMBERS UAMIC ####[facility] Dbxkclendd[address] [place], [place] [address]Dr. Chrissy Frazier UA PROTEIN Negative Normal NEGATIVE/ TRACE [facility] Comment on above: Performed By: #### Amelie CHAMBERS UAMIC ####[facility] Gcmrpgnasq[address] [place], [place] [address]Dr. Chrissy Frazier Urobilinogen Qn (U) 0.2 {Estrellita'U}/dL Normal 0.2 - 1. 0 [facility] Comment on above: Performed By: #### Amelie CHAMBERS UAMIC ####[facility] Qhuwcexqzk1758 [place] [id number]. Chrissy Frzaier WBC NONE SEEN Normal NONE SEEN [facility] Comment on above: Performed By: #### D REYES UAMIC ####[facility] Lkahhiltfa4972 [place] [id number]. Chrissy Frazier AMMONIAon 01-03-2023 Ammonia (P) [Moles/Vol] 17 umol/L Normal 11-32 [facility] Comment on above: Performed By: #### A MM ####[facility] Qfsjxsbhvr8451 [place] [address]Dr. Chrissy Frazier AMYLASEon 01-03-2023 Amylase [Catalytic activity/Vol] 38 U/L Normal 25-115 [facility] Comment on above: Performed By: #### L IPA, TERRENCE, CMP, MG ####[facility] Pdsdsmgfbp3290 [place] [address]Dr. Chrissy Frazier CBC AUTO DIFFon 01-03-2023 BASO # 0.1 103/ul Normal 0.0-0.1 [facility] Comment on above: Performed By: #### C BC ####[facility] Zoqfdyqsuv8352 [place] [address]Dr. Chrissy Frazier Basophils/100 WBC (Bld) 0.4 % Normal 0.2-2.0 [facility] Comment on above: Performed By: #### C BC ####[facility] Yjzhfkkxqh1809 [place] [address]Dr. Chrissy Frazier EO # 0.1 103/ul Normal 0.0-0.7 [facility] Comment on above: Performed By: #### C BC ####[facility] Tybmwhdxhp5781 [place] [address]Dr. Chrissy Frazier Eosinophils/100 WBC (Bld) 0.3 % Critically low 0.9-7.0 [facility] Comment on above: Performed By: #### C BC ####[facility] Eakrvgmtyr3869 [place] [address]Dr. Chrissy Frazier Erythrocyte distribution width (RBC) [Ratio] 13.7 % Normal 11.0-15.0 [facility] Comment on above: Performed By: #### C BC ####[facility] Zpieuyryte6705 [place] [address]Dr. Tishrowan Freddie Hematocrit (Bld) [Volume fraction] 46.1 % Normal 42.0-54.0 [facility] Comment on above: Performed By: #### C BC ####[facility] Eryqxzutep4976 [place] [address]Dr. Chrissy Frazier Hemoglobin (Bld) [Mass/Vol] 15.4 g/dL Normal 14.0-18.0 [facility] Comment on above: Performed By: #### C BC ####[facility] Kkprhsgith[address] [place], [place] [address]Dr. Chrissy Frazier IG # 0.11 10e3/ul Critically high 0.00-0.03 [facility] Comment on above: Performed By: #### C BC ####[facility] Hqzanzmyak79[address] [place], [place] [address]Dr. Chrissy Frazier IG % 0.6 % Critically high 0.0-0.5 [facility] Comment on above: Performed By: #### C BC ####[facility] Amnwndjjdn64[address] [place], [place] [address]Dr. Chrissy Frazier LYMPH # 2.5 103/ul Normal 1.2-3.8 [facility] Comment on above: Performed By: #### C BC ####[facility] Jbzlctcevl92[address] [place], [place] [address]DrNancy Frazier Lymphocytes/100 WBC (Bld) 13.9 % Critically low 20.5-60.0 [facility] Comment on above: Performed By: #### C BC ####[facility] Tfvozxaxnw[address] [place], [place] [address]DrNancy Frazier MANUAL DIFF REQ NO Normal [facility] Comment on above: Performed By: #### C BC ####[facility] Qujhqybmvr6177 [place] [address]Dr. Chrissy Frazier MCH (RBC) [Entitic mass] 28.6 pg Normal 25.9-34.0 [facility] Comment on above: Performed By: #### C BC ####[facility] Abxvrlrnby6010 [place] [address]Dr. Chrissy Frazier MCHC (RBC) [Mass/Vol] 33.4 g/dL Normal 29.9-35.2 [facility] Comment on above: Performed By: #### C BC ####[facility] Beivhdssfy3336 [place] [address]Dr. Chrissy Frazier MCV (RBC) [Entitic vol] 85.7 fL Normal 80.0-94.0 [facility] Comment on above: Performed By: #### C BC ####[facility] Shszwrebcx[address] [place], [place] [address]DrNancy Frazier MONO # 0.7 103/ul Normal 0.3-0.8 [facility] Comment on above: Performed By: #### C BC ####[facility] Swwapzxqwg[address] [place], [place] [address]Dr. Chrissy Frazier Monocytes/100 WBC (Bld) 4.0 % Normal 1.7-12.0 [facility] Comment on above: Performed By: #### C BC ####[facility] Ycgxnnmxon[address] [place], [place] [address]DrNancy Frazier NEUT # 14.3 103/ul Critically high 1.4-6.5 [facility] Comment on above: Performed By: #### C BC ####[facility] Wabfxbjqts[address] [place], [place] [address]Dr. Chrissy Frazier Neutrophils/100 WBC (Bld) 80.8 % Critically high 43.0-75.0 [facility] Comment on above: Performed By: #### C BC ####[facility] Nsbnbaaace[address] [place], [place] [address]DrNancy Frazier Platelet mean volume (Bld) [Entitic vol] 10.4 fL Normal 9.5-13.5 [facility] Comment on above: Performed By: #### C BC ####[facility] Eawlyzerkm9[address] [place], [place] [address]Dr. Chrissy Frazier PLT 437 103/ul Normal 150-450 [facility] Comment on above: Performed By: #### C BC ####[facility] Rgoglyqsrg0674 [place] [address]Dr. Chrissy Frazier RBC 5.38 106/ul Normal 4.70-6.10 [facility] Comment on above: Performed By: #### C BC ####[facility] Thynsimtnv7598 [place] [address]Dr. Chrissy Frazier WBC 17.7 103/ul Critically high 4.0-11.0 [facility] Comment on above: Performed By: #### C BC ####[facility] [facility] [address] [place] [address]Dr. Chrissy Frazier CULTURE BLOODon 01-03-2023 Microscopic examination of blood, culture Culture Observations: NO GROWTH AT 5 DAYS. Normal [facility] Comment on above: Performed By: #### B LDCX1 ####[facility] Xupgjyjdbc[address] [place], [place] [address]Dr. Chrissy Frazier Performed By: #### B LDCX2 ####[facility] [address] [place] [address]Dr. Chrissy Frazier ECHOCARDIO M/2D COMPLETEon 0 01-03-2023 ECHOCARDIO M/2D COMPLETE Normal [facility] LACTATE/LACTIC ACIDon 2022 Lactate [Moles/Vol] 2.7 mmol/L Critically high 0.4-1.9 [facility] Comment on above: Performed By: #### L ACT ####[facility] [address] [place] [address]Dr. Chrissy Frazier Lactate [Moles/Vol] 6.3 mmol/L Critically high 0.4-1.9 [facility] Comment on above: Performed By: #### L ACT ####[facility] [address] [place] [address]Dr. Chrissy Frazier LIPASEon 01-03-2023 Lipase [Catalytic activity/Vol] 74.0 U/L Normal 73.0-393.0 [facility] Comment on above: Performed By: #### L IPA, TERRENCE, CMP, MG ####[facility] [address] [place] [address]Dr. Chrissy Frazier MAGNESIUMon 01-03-2023 Magnesium [Mass/Vol] 1.6 mg/dL Critically low 1.8-2.4 [facility] Comment on above: Performed By: #### L IPA, TERRENCE, CMP, MG ####[facility] Kl[address]chgs[address] [place] [address]Dr. Chrissy Frazier PROF 14(COMP METB)on 023 Albumin [Mass/Vol] 4.3 g/dL Normal 3.4-5.0 [facility] Comment on above: Performed By: #### L IPA, TERRENCE, CMP, MG ####[facility] [address]vix[address] [place] [address]Dr. Chrissy Frazier Albumin/Globulin [Mass ratio] 1.1 {ratio} Normal [facility] Comment on above: Performed By: #### L IPA, TERRENCE, CMP, MG ####[facility] Mbfxysmfoz[address] [place] [address]Dr. Chrissy Frazier ALP [Catalytic activity/Vol] 87 U/L Normal 46-116 [facility] Comment on above: Performed By: #### L IPA, TERRENCE, CMP, MG ####[facility] Icfckplnji[address] [place] [address]Dr. Chrissy Frazier ALT [Catalytic activity/Vol] 32 U/L Normal 16-63 [facility] Comment on above: Performed By: #### L IPA, TERRENCE, CMP, MG ####[facility] [address]clrzjt[address] [place] [address]Dr. Chrissy Frazier Anion gap [Moles/Vol] 24.0 mmol/L Normal [facility] Comment on above: Performed By: #### L IPA, TERRENEC, CMP, MG ####[facility] Dvlnykzsup[address] [place] [address]Dr. Chrissy Frazier AST [Catalytic activity/Vol] 22 U/L Normal 15-37 [facility] Comment on above: Performed By: #### L IPA, TERRENCE, CMP, MG ####[facility] Dwgxexkndh[address] [place] [address]Dr. Chrissy Frazier Bilirubin [Mass/Vol] 0.6 mg/dL Normal 0.2-1.0 [facility] Comment on above: Performed By: #### L IPA, TERRENCE, CMP, MG ####[facility] Hjzgxwpxqv[address] [place] [address]Dr. Chrissy Frazier Calcium [Mass/Vol] 9.6 mg/dL Normal 8.5-10.1 [facility] Comment on above: Performed By: #### L IPA, TERRENCE, CMP, MG ####[facility] [address]qjklishcf[address] [place] [address]Dr. Chrissy Frazier Chloride [Moles/Vol] 103 mmol/L Normal 98-107 [facility] Comment on above: Performed By: #### L IPA, TERRENCE, CMP, MG ####[facility] Wavmwcgacx[address] [place], [place] [address]Dr. Chrissy Frazier CO2 [Moles/Vol] 16.7 mmol/L Critically low 21.0-32.0 [facility] Comment on above: Performed By: #### L IPA, TERRENCE, CMP, MG ####[facility] Nnjiufrtim[address] [place], [place] [address]Dr. Chrissy Frazier Creatinine [Mass/Vol] 1.42 mg/dL Critically high 0.70-1.30 [facility] Comment on above: Performed By: #### L IPA, TERRENCE, CMP, MG ####[facility] [address]un[address] [place] [address]Dr. Chrissy Frazier EGFR-AF BAHAMIAN >60 Normal >=60 [facility] Comment on above: Performed By: #### L IPA, TERRENCE, CMP, MG ####[facility] Jtytutyboz[address] [place], [place] [address]Dr. Chrissy Frazier EGFR-NON AF BAHAMIAN 58 mL/min/1.73m2 Critically low >=60 [facility] Comment on above: Performed By: #### L IPA, TERRENCE, CMP, MG ####[facility] X[address]attqo[address] [place] [address]Dr. Chrissy Frazier Globulin (S) [Mass/Vol] 4.0 g/dL Normal [facility] Comment on above: Performed By: #### L IPA, TERRENCE, CMP, MG ####[facility] Sy[address]ahmt[address] [place] [address]Dr. Chrissy Frazier Glucose [Mass/Vol] 149 mg/dL Critically high 74-106 [facility] Comment on above: Performed By: #### L IPA, TERRENCE, CMP, MG ####[facility] Qzdxuneigt[address] [place] [address]Dr. Chrissy Frazier Potassium [Moles/Vol] 3.7 mmol/L Normal 3.5-5.1 [facility] Comment on above: Performed By: #### L IPA, TERRENCE, CMP, MG ####[facility] Dectuukpvs[address] [place] [address]Dr. Chrissy Frazier Protein [Mass/Vol] 8.3 g/dL Critically high 6.4-8.2 [facility] Comment on above: Performed By: #### L IPA, TERRENCE, CMP, MG ####[facility] Yf[address]wwphdv[address] [place] [address]Dr. Chrissy Frazier Sodium [Moles/Vol] 140 mmol/L Normal 136-145 [facility] Comment on above: Performed By: #### L IPA, TERRENCE, CMP, MG ####[facility] Es[address]mw[address]yr[address] [place] [address]Dr. Chrissy Frazier Urea nitrogen [Mass/Vol] 16.0 mg/dL Normal 7.0-18.0 [facility] Comment on above: Performed By: #### L IPA, TERRENCE, CMP, MG ####[facility] [address]wxms[address] [place] [address]Dr. Chrissy Frazier Urea nitrogen/Creatinine [Mass ratio] 11.3 mg/mg Normal [facility] Comment on above: Performed By: #### L IPA, TERRENCE, CMP, MG ####[facility] Gpcmyajhaw[address] [place] [address]Dr. Chrissy Frazier SED RATE [facility] 2022 SED RATE 37 mm/hr Critically high <=15 [facility] Comment on above: Performed By: #### S EDR ####[facility] Ved[address]ex[address] [place], [place] [address]Eg. Chrissy Frazier XR ABD FLAT UP_PA Enoch 01-03 XR ABD FLAT UP_PA CH Normal [facility] CT HEART CORONARY ANGIOGRAMo n [...] CT examination Electronically signed: Maikel Chappell. Normal [facility] Office Visiton 11-24-2022 Follow-up visit [id number] Paulina Montero 1990 M Date Provider Department Center 11/24/2022 3848-RAQUEL BANKS MANE [facility] Family History Problem Relation Age of Onset Coronary artery disease Father Heart attack Father 54 Family Status - Relation Status Age at Father Level of Service:[address] [place] OFFICE/OUTPATIENT NEW MODERATE MDM 45-59 MINUTES Reason for Visit and Comments: abnormal stress test [Other] Normal [facility] CARDIAC STRESS TESTon 2021 CARDIAC STRESS TEST Normal [facility] AMYLASEon 10-24-2022 Amylase [Catalytic activity/Vol] 26 U/L Normal 25-115 [facility] Comment on above: Performed By: #### C MP, LIPA, TERRENCE ####[facility] Wlq[address]ctuer17[address] [place], [place] [address]FeNancy Chrissy Frazier CBC AUTO DIFFon 10-24-2022 BASO # 0.0 103/ul Normal 0.0-0.1 [facility] Comment on above: Performed By: #### C BC ####[facility] [address] [place] [id number]. Chrissy Frazier Basophils/100 WBC (Bld) 0.2 % Normal 0.2-2.0 [facility] Comment on above: Performed By: #### C BC ####[facility] Iewpzykdxl[address] [place] [id number]. Chrissy Frazier EO # 0.1 103/ul Normal 0.0-0.7 [facility] Comment on above: Performed By: #### C BC ####[facility] [address] [place], [place] [address]Dr. Chrissy Frazier Eosinophils/100 WBC (Bld) 0.4 % Critically low 0.9-7.0 [facility] Comment on above: Performed By: #### C BC ####[facility] Nypqyrkfyl[address] [place], [place] [address]Dr. Chrissy Frazier Erythrocyte distribution width (RBC) [Ratio] 14.6 % Normal 11.0-15.0 [facility] Comment on above: Performed By: #### C BC ####[facility] [address]ncx[address]nl[address] [place] [address]Dr. Chrissy Frazier Hematocrit (Bld) [Volume fraction] 39.4 % Critically low 42.0-54.0 [facility] Comment on above: Performed By: #### C BC ####[facility] [address]zbai[address] [place] [id number]. Chrissy Frazier Hemoglobin (Bld) [Mass/Vol] 13.2 g/dL Critically low 14.0-18.0 [facility] Comment on above: Performed By: #### C BC ####[facility] [address]uyghrn[address] [place] [address]Dr. Chrissy Frazier IG # 0.07 10e3/ul Critically high 0.00-0.03 [facility] Comment on above: Performed By: #### C BC ####[facility] [address]cm[address] [place], [place] [address]Dr. Chrissy Frazier IG % 0.5 % Normal 0.0-0.5 [facility] Comment on above: Performed By: #### C BC ####[facility] Iqauteiqfp[address] [place] [id number]. Chrissy Frazier LYMPH # 3.7 103/ul Normal 1.2-3.8 [facility] Comment on above: Performed By: #### C BC ####[facility] Fwtknmubvq5[address] [place], [place] [address]Il. Chrissy Freddie Lymphocytes/100 WBC (Bld) 27.0 % Normal 20.5-60.0 [facility] Comment on above: Performed By: #### C BC ####[facility] Vshbsmysxb[address] [place] [id number]. Tishrowan Frazier MANUAL DIFF REQ NO Normal [facility] Comment on above: Performed By: #### C BC ####[facility] Rxlqsntmxv[address] [place] [id number]. Chrissy Freddie MCH (RBC) [Entitic mass] 27.8 pg Normal 25.9-34.0 [facility] Comment on above: Performed By: #### C BC ####[facility] Qkpahxettb7[address] [place] [id number]. Chrissy Frazier MCHC (RBC) [Mass/Vol] 33.5 g/dL Normal 29.9-35.2 [facility] Comment on above: Performed By: #### C BC ####[facility] [address]nzkkvobl[address] [place] [id number]. Chrissy Frazier MCV (RBC) [Entitic vol] 82.9 fL Normal 80.0-94.0 [facility] Comment on above: Performed By: #### C BC ####[facility] Zvvziddrbc7[address] [place] [id number]. Chrissy Freddie MONO # 1.2 103/ul Critically high 0.3-0.8 [facility] Comment on above: Performed By: #### C BC ####[facility] Uoprwzwrmj7[address] [place] [id number]. Tishrowan Frazier Monocytes/100 WBC (Bld) 8.4 % Normal 1.7-12.0 [facility] Comment on above: Performed By: #### C BC ####[facility] Sdfgbxjuhi5260 [place] [id number]. Chrissy Frazier NEUT # 8.8 103/ul Critically high 1.4-6.5 [facility] Comment on above: Performed By: #### C BC ####[facility] Vcsoqdafuh[address] [place] [id number]. Chrissy Frazier Neutrophils/100 WBC (Bld) 63.5 % Normal 43.0-75.0 [facility] Comment on above: Performed By: #### C BC ####[facility] Qguwhnxfyu8457 [place] [id number]. Tishrowan Frazier Platelet mean volume (Bld) [Entitic vol] 10.7 fL Normal 9.5-13.5 [facility] Comment on above: Performed By: #### C BC ####[facility] Ujdsjpyfwv5[address] [place] [id number]. Chrissy Frazier PLT 291 103/ul Normal 150-450 [facility] Comment on above: Performed By: #### C BC ####[facility] Blazlxnebj[address] [place], [place] [address]Dr. Chrissy Frazier RBC 4.75 106/ul Normal 4.70-6.10 [facility] Comment on above: Performed By: #### C BC ####[facility] Tylwyupqat[address] [place] [id number]. Chrissy Frazier WBC 13.8 103/ul Critically high 4.0-11.0 [facility] Comment on above: Performed By: #### C BC ####[facility] Mmfotqdgcd[address] [place], [place] [address]Dr. Chrissy Frazier LIPASEon 10-24-2022 Lipase [Catalytic activity/Vol] 44.0 U/L Critically low 73.0-393.0 [facility] Comment on above: Performed By: #### C MP, LIPA, TERRENCE ####[facility] Ufarjstfzy[address] [place] [address]Dr. Chrissy Frazier PROF 14(COMP METB)on 022 Albumin [Mass/Vol] 3.4 g/dL Normal 3.4-5.0 [facility] Comment on above: Performed By: #### C OSWALD ADAIR, TERRENCE ####[facility] Ukstpkiqkq[address] [place] [address]Dr. Chrissy Frazier Albumin/Globulin [Mass ratio] 0.9 {ratio} Normal [facility] Comment on above: Performed By: #### C TESSA ADAIRA, TERRENCE ####[facility] Sejeadadss[address] [place], [place] [address]Dr. Tishrowan Frazier ALP [Catalytic activity/Vol] 67 U/L Normal 46-116 [facility] Comment on above: Performed By: #### C OSWALD ADAIR, TERRENCE ####[facility] [address]jxdzkwjoh[address] [place], [place] [address]Dr. Chrissy Frazier ALT [Catalytic activity/Vol] 25 U/L Normal 16-63 [facility] Comment on above: Performed By: #### C OSWALD ADAIR, TERRENCE ####[facility] Ntjetcfcgy[address] [place], [place] [address]Dr. Chrissy Frazier Anion gap [Moles/Vol] 14.5 mmol/L Normal [facility] Comment on above: Performed By: #### C OSWALD ADAIR, TERRENCE ####[facility] Hvmvyuduyi[address] [place], [place] [address]Dr. Chrissy Frazier AST [Catalytic activity/Vol] 17 U/L Normal 15-37 [facility] Comment on above: Performed By: #### C OSWALD ADAIR, TERRENCE ####[facility] Cltsbzplao[address] [place], [place] [address]Dr. Chrissy Frazier Bilirubin [Mass/Vol] 0.5 mg/dL Normal 0.2-1.0 [facility] Comment on above: Performed By: #### C OSWALD ADAIR, TERRENCE ####[facility] [address]smgvzzjmw[address] [place], [place] [address]Dr. Chrissy Frazier Calcium [Mass/Vol] 8.6 mg/dL Normal 8.5-10.1 [facility] Comment on above: Performed By: #### C TESSA ADAIRA, TERRENCE ####[facility] Vwgylxeehb[address] [place] [address]Dr. Chrissy Frazier Chloride [Moles/Vol] 106 mmol/L Normal 98-107 [facility] Comment on above: Performed By: #### C OSWALD ADAIR, TERRENCE ####[facility] Rpacixvgko4046 [place] [address]Dr. Chrissy Frazier CO2 [Moles/Vol] 22.8 mmol/L Normal 21.0-32.0 [facility] Comment on above: Performed By: #### C OSWALD ADAIR, TERRENCE ####[facility] Ikkclvimzu9672 [place] [address]Dr. Chrissy Frazier Creatinine [Mass/Vol] 0.98 mg/dL Normal 0.70-1.30 [facility] Comment on above: Performed By: #### C OSWALD ADAIR, TERRENCE ####[facility] Kvdhbxfffo[address] [place], [place] [address]Dr. Chrissy Frazier EGFR-AF BAHAMIAN >60 Normal >=60 [facility] Comment on above: Performed By: #### C OSWALD ADAIR, TERRENCE ####[facility] Zllwxmjjtx[address] [place], [place] [address]Dr. Chrissy Frazier EGFR-NON AF BAHAMIAN >60 Normal >=60 [facility] Comment on above: Performed By: #### C OSWALD ADAIR, TERRENCE ####[facility] Fwpthwflhf4[address] [place] [address]Dr. Chrissy Frazier Globulin (S) [Mass/Vol] 3.7 g/dL Normal [facility] Comment on above: Performed By: #### C OSWALD ADAIR, TERRENCE ####[facility] Avisfxxfay12[address] [place] [address]Dr. Chrissy Frazier Glucose [Mass/Vol] 115 mg/dL Critically high 74-106 [facility] Comment on above: Performed By: #### C OSWALD ADAIR, TERRENCE ####[facility] [address]jfaetvgps[address] [place], [place] [address]Dr. Chrissy Frazier Potassium [Moles/Vol] 3.3 mmol/L Critically low 3.5-5.1 [facility] Comment on above: Performed By: #### C MP, LIPA, TERRENCE ####[facility] Idgizlkgjz[address] [place], [place] [address]Dr. Chrissy Frazier Protein [Mass/Vol] 7.1 g/dL Normal 6.4-8.2 [facility] Comment on above: Performed By: #### C MP, LIPA, TERRENCE ####[facility] Cpiqvtrmbq[address] [place], [place] [address]Dr. Chrissy Frazier Sodium [Moles/Vol] 140 mmol/L Normal 136-145 [facility] Comment on above: Performed By: #### C MP, LIPA, TERRENCE ####[facility] Ogckpazqbz[address] [place], [place] [address]Dr. Chrissy Frazier Urea nitrogen [Mass/Vol] 10.0 mg/dL Normal 7.0-18.0 [facility] Comment on above: Performed By: #### C MP, LIPA, TERRENCE ####[facility] Zwdiazndly[address] [place], [place] [address]Dr. Chrissy Frazier Urea nitrogen/Creatinine [Mass ratio] 10.2 mg/mg Normal [facility] Comment on above: Performed By: #### C MP, LIPA, TERRENCE ####[facility] [address]mbiwdynr[address] [place], [place] [address]Dr. Chrissy Frazier AMYLASEon 10-23-2022 Amylase [Catalytic activity/Vol] 31 U/L Normal 25-115 [facility] Comment on above: Performed By: #### C MP, LIPA, TERRENCE ####[facility] Uspzoylshd[address] [place], [place] [address]Dr. Chrissy Frazier CBC AUTO DIFFon 10-23-2022 BASO # 0.1 103/ul Normal 0.0-0.1 [facility] Comment on above: Performed By: #### C BC ####[facility] Pbyuppyrpg[address] [place], [place] [address]Dr. Chrissy Frazier Basophils/100 WBC (Bld) 0.3 % Normal 0.2-2.0 [facility] Comment on above: Performed By: #### C BC ####[facility] Ijtyqjcewl[address] [place] [address]Dr. Chrissy Frazier EO # 0.1 103/ul Normal 0.0-0.7 [facility] Comment on above: Performed By: #### C BC ####[facility] Dbwmmmntcn8160 [place] [address]Dr. Chrissy Frazier Eosinophils/100 WBC (Bld) 0.3 % Critically low 0.9-7.0 [facility] Comment on above: Performed By: #### C BC ####[facility] Icxwbjvshc[address] [place], [place] [address]Dr. Chrissy Frazier Erythrocyte distribution width (RBC) [Ratio] 14.5 % Normal 11.0-15.0 [facility] Comment on above: Performed By: #### C BC ####[facility] Xugnwpytqo[address] [place], [place] [address]Dr. Chrissy Frazier Hematocrit (Bld) [Volume fraction] 44.0 % Normal 42.0-54.0 [facility] Comment on above: Performed By: #### C BC ####[facility] Oiqmxiwnmw[address] [place], [place] [address]Dr. Chrissy Frazier Hemoglobin (Bld) [Mass/Vol] 14.8 g/dL Normal 14.0-18.0 [facility] Comment on above: Performed By: #### C BC ####[facility] Eobopclmby[address] [place] [address]Dr. Chrissy Frazier IG # 0.09 10e3/ul Critically high 0.00-0.03 [facility] Comment on above: Performed By: #### C BC ####[facility] Aztwqycvbk51[address] [place] [address]Dr. Chrissy Frazier IG % 0.5 % Normal 0.0-0.5 [facility] Comment on above: Performed By: #### C BC ####[facility] Eghrfddzpn[address] [place], [place] [address]Dr. Chrissy Frazier LYMPH # 3.6 103/ul Normal 1.2-3.8 [facility] Comment on above: Performed By: #### C BC ####[facility] Vwllzjpvnk9159 [place] [id number]. Chrissy Freddie Lymphocytes/100 WBC (Bld) 19.4 % Critically low 20.5-60.0 [facility] Comment on above: Performed By: #### C BC ####[facility] Xuyivlmxxg0251 [place] [id number]. Tishrowan Frazier MANUAL DIFF REQ NO Normal [facility] Comment on above: Performed By: #### C BC ####[facility] Aquuzboiuy0594 [place] [id number]. Chrissy Freddie MCH (RBC) [Entitic mass] 28.1 pg Normal 25.9-34.0 [facility] Comment on above: Performed By: #### C BC ####[facility] Tvjahbqzlh5982 [place] [id number]. Chrissy Freddie MCHC (RBC) [Mass/Vol] 33.6 g/dL Normal 29.9-35.2 [facility] Comment on above: Performed By: #### C BC ####[facility] Uvbwtnqltr4782 [place] [id number]. Chrissy Freddie MCV (RBC) [Entitic vol] 83.5 fL Normal 80.0-94.0 [facility] Comment on above: Performed By: #### C BC ####[facility] Bhzbxxhhws6773 [place] [id number]. Chrissy Frazier MONO # 0.9 103/ul Critically high 0.3-0.8 [facility] Comment on above: Performed By: #### C BC ####[facility] Jmmzqnbagb4576 [place] [id number]. Tishrowan Frazier Monocytes/100 WBC (Bld) 4.9 % Normal 1.7-12.0 [facility] Comment on above: Performed By: #### C BC ####[facility] Vynceqragu6254 [place] [address]Dr. Chrissy Frazier NEUT # 13.9 103/ul Critically high 1.4-6.5 [facility] Comment on above: Performed By: #### C BC ####[facility] Punmletigx5554 [place] [id number]. Chrissy Frazier Neutrophils/100 WBC (Bld) 74.6 % Normal 43.0-75.0 [facility] Comment on above: Performed By: #### C BC ####[facility] Ajmkpyfzuq8184 [place] [id number]. Chrissy Frazier Platelet mean volume (Bld) [Entitic vol] 10.5 fL Normal 9.5-13.5 [facility] Comment on above: Performed By: #### C BC ####[facility] Aqnehohtvj38[address] [place] [id number]. Chrissy Frazier PLT 402 103/ul Normal 150-450 [facility] Comment on above: Performed By: #### C BC ####[facility] Kuxkekwddp0545 [place] [id number]. Chrissy Frazier RBC 5.27 106/ul Normal 4.70-6.10 [facility] Comment on above: Performed By: #### C BC ####[facility] Dhbtnyaeev9792 [place] [id number]. Chrissy Frazier WBC 18.6 103/ul Critically high 4.0-11.0 [facility] Comment on above: Performed By: #### C BC ####[facility] Dirdilkjbv9159 [place] [id number]. Chrissy Frazier CULTURE BLOODon 10-23-2022 Microscopic examination of blood, culture Culture Observations: NO GROWTH AT 5 DAYS. Normal [facility] Comment on above: Performed By: #### B LDCX2 ####[facility] Gmzueiryqh7[address] [place] [id number]. Chrissy Frazier Microscopic examination of blood, culture Culture Observations: NO GROWTH AT 5 DAYS. Normal [facility] Comment on above: Performed By: #### B LDCX1 ####[facility] Ausyljwugr3804 [place] [id number]. Chrissy Frazier CULTURE URINEon 10-23-2022 CULTURE URINE Culture Observations: NO GROWTH. Normal [facility] Comment on above: Performed By: #### U RCX ####[facility] Ehyhjbewur[address] [place] [address]Dr. Chrissy Frazier Covid-19 PCR (CVDTB)on SARS-CoV-2 (COVID-19) RNA RHIANNON+probe Ql (Unsp spec) Not detected Normal NOT DETECTED [facility] Comment on above: Result Comment: [...] for this test is supported by the [place] of Health and Human Service's declaration that [...] be used). Performed By: #### C VDTBH ####[facility] Sc[address]xiix[address] [place], [place] [address]Dr. Chrissy Frazier INFLUENZA A AND B AGon 10-23 INFLUANEGH SEE BELOW Normal [facility] Comment on above: Result Comment: Nega tive for Flu A protein angiten. Infection due to Flu A cannot be ruled out. Flu A angiten in the sample may be below the detection limit of the test. Performed By: #### I NFLUAB ####[facility] [address]fdgycrxzg[address] [place], [place] [address]Dr. Chrissy Frazier INFLUBNEGH SEE BELOW Normal [facility] Comment on above: Result Comment: Nega tive for Flu B protein antigen. Infection due to Flu B cannot be ruled out. Flu B antigen in the sample may be below the detection limit of the test. Performed By: #### I NFLUAB ####[facility] [address] [place], [place] [address]Dr. Chrissy Frazier INFLUENZA A AG Negative Normal NEGATIVE SEE COMMENT [facility] [facility] Comment on above: Performed By: #### I NFLUAB ####[facility] [address]pi[address]ncv[address] [place] [address]Dr. Chrissy Frazier INFLUENZA B AG Negative Normal NEGATIVE SEE COMMENT [facility] Comment on above: Performed By: #### I NFLUAB ####[facility] Mjvqisifwe[address] [place], [place] [address]Dr. Chrissy Frazier INTERNAL CONTROLS Within Normal Limits Normal Wi thin Normal Limits [facility] Comment on above: Performed By: #### I NFLUAB ####[facility] Xfqhvueiwz50[address] [place], [place] [address]Dr. Chrissy Frazier LACTATE/LACTIC ACIDon 2021 Lactate [Moles/Vol] 2.1 mmol/L Critically high 0.4-1.9 [facility] Comment on above: Performed By: #### L ACT ####[facility] Rvsuczxpzo39[address] [place], [place] [address]Dr. Chrissy Frazier Lactate [Moles/Vol] 6.9 mmol/L Critically high 0.4-1.9 [facility] Comment on above: Performed By: #### L ACT ####[facility] Dgnhltkphn11[address] [place], [place] [address]Dr. Chrissy Freddie LIPASEon 10-23-2022 Lipase [Catalytic activity/Vol] 72.0 U/L Critically low 73.0-393.0 [facility] Comment on above: Performed By: #### C OSWALD ADAIR AMY ####[facility] Ehgsnnekns[address] [place], [place] [address]Dr. Chrissy Frazier PROF 14(COMP METB)on 022 Albumin [Mass/Vol] 3.9 g/dL Normal 3.4-5.0 [facility] Comment on above: Performed By: #### C OSWALD ADAIR AMY ####[facility] Fjbuqqgbog22[address] [place], [place] [address]Dr. Chrissy Freddie Albumin/Globulin [Mass ratio] 0.9 {ratio} Normal [facility] Comment on above: Performed By: #### C MP, LIPA, TERRENCE ####[facility] [address]cdx[address] [place] [address]Dr. Chrissy Frazier ALP [Catalytic activity/Vol] 82 U/L Normal 46-116 [facility] Comment on above: Performed By: #### C MP, LIPA, TERRENCE ####[facility] Fiuvynolqe[address] [place] [address]Dr. Chrissy Frazier ALT [Catalytic activity/Vol] 25 U/L Normal 16-63 [facility] Comment on above: Performed By: #### C MP, LIPA, TERRENCE ####[facility] Dntmiaoucv9[address] [place], [place] [address]Dr. Chrissy Frazier Anion gap [Moles/Vol] 18.1 mmol/L Normal [facility] Comment on above: Performed By: #### C MP, LIPA, TERRENCE ####[facility] Byfetgtora77[address] [place], [place] [address]Dr. Chrissy Frazier AST [Catalytic activity/Vol] 17 U/L Normal 15-37 [facility] Comment on above: Performed By: #### C MP, LIPA, TERRENCE ####[facility] Pmsrjzqiso[address] [place], [place] [address]Dr. Chrissy Frazier Bilirubin [Mass/Vol] 0.5 mg/dL Normal 0.2-1.0 [facility] Comment on above: Performed By: #### C MP, LIPA, TERRENCE ####[facility] Nlbcbhldtd[address] [place], [place] [address]Dr. Chrissy Frazier Calcium [Mass/Vol] 9.1 mg/dL Normal 8.5-10.1 [facility] Comment on above: Performed By: #### C MP, LIPA, TERRENCE ####[facility] Laszbawcbk39[address] [place], [place] [address]Dr. Chrissy Frazier Chloride [Moles/Vol] 101 mmol/L Normal 98-107 [facility] Comment on above: Performed By: #### C MP, LIPA, TERRENCE ####[facility] Ciikrimafo794[address] [place], [place] [address]Dr. Chrissy Frazier CO2 [Moles/Vol] 19.2 mmol/L Critically low 21.0-32.0 [facility] Comment on above: Performed By: #### C OSWALD ADAIR TERRENCE ####[facility] Sydnxuhvtv[address] [place] [address]Dr. Chrissy Frazier Creatinine [Mass/Vol] 1.72 mg/dL Critically high 0.70-1.30 [facility] Comment on above: Performed By: #### C OSWALD ADAIR, TERRENCE ####[facility] Yoavrglncs[address] [place] [address]Dr. Chrissy Frazier EGFR-AF BAHAMIAN 56 mL/min/1.73m2 Critically low >=60 [facility] Comment on above: Performed By: #### C OSWALD ADAIR, TERRENCE ####[facility] Aehregjvhy[address] [place] [address]Dr. Chrissy Frazier EGFR-NON AF BAHAMIAN 46 mL/min/1.73m2 Critically low >=60 [facility] Comment on above: Performed By: #### C OSWALD ADAIR, TERRENCE ####[facility] Xfceiddrfe[address] [place], [place] [address]Dr. Chrissy Frazier Globulin (S) [Mass/Vol] 4.2 g/dL Normal [facility] Comment on above: Performed By: #### C OSWALD ADAIR, TERRENCE ####[facility] Linqkpnthp4[address] [place] [address]Dr. Chrissy Frazier Glucose [Mass/Vol] 126 mg/dL Critically high 74-106 [facility] Comment on above: Performed By: #### C OSWALD ADAIR, TERRENCE ####[facility] Drkjhzqrwy0[address] [place] [address]Dr. Chrissy Frazier Potassium [Moles/Vol] 3.3 mmol/L Critically low 3.5-5.1 [facility] Comment on above: Performed By: #### C TESSA ADAIRA, TERRENCE ####[facility] Okinllpqds[address] [place] [address]Dr. Chrissy Frazier Protein [Mass/Vol] 8.1 g/dL Normal 6.4-8.2 [facility] Comment on above: Performed By: #### C OSWALD ADAIR, TERRENCE ####[facility] Iqrtxivhed6[address] [place] [address]Dr. Chrissy Frazier Sodium [Moles/Vol] 135 mmol/L Critically low 136-145 [facility] Comment on above: Performed By: #### C TESSA ADAIRA, TERRENCE ####[facility] Geuclwuekf[address] [place] [address]Dr. Chrissy Frazier Urea nitrogen [Mass/Vol] 13.0 mg/dL Normal 7.0-18.0 [facility] Comment on above: Performed By: #### C OSWALD ADAIR, TERRENCE ####[facility] Tqoctgcxvj562[address] [place], [place] [address]Dr. Chrissy Frazier Urea nitrogen/Creatinine [Mass ratio] 7.6 mg/mg Normal [facility] Comment on above: Performed By: #### C OSWALD ADAIR, TERRENCE ####[facility] Yswujtkunq325[address] [place], [place] [address]Dr. Chrissy Frazier UA RANDOM W/MICROSCOPICon BACTERIA NONE SEEN Normal NONE SEEN [facility] Comment on above: Performed By: #### U AMIC ####[facility] Drmbihephl052[address] [place], [place] [address]Dr. Chrissy Frazier Bilirubin Ql (U) Negative Normal NEGATIVE [facility] Comment on above: Performed By: #### U AMIC ####[facility] Battsxgvzk9450[address] [place], [place] [address]Dr. Chrissy Frazier CAST NONE SEEN Normal NONE SEEN [facility] Comment on above: Performed By: #### U AMIC ####[facility] Tlnjlgbyss1588[address] [place], [place] [address]Dr. Chrissy Frazier Clarity (U) CLEAR Normal CLEAR [facility] Comment on above: Performed By: #### U AMIC ####[facility] Jlhersxowz[address] [place] [address]Dr. Chrissy Frazier Color (U) LT. YELLOW Normal YELLOW [facility] Comment on above: Performed By: #### U AMIC ####[facility] Kunbjfvweh[address] [place] [address]Dr. Chrissy Frazier Crystals LM Nom (Urine sed) NONE SEEN Normal NONE SEEN [facility] Comment on above: Performed By: #### U AMIC ####[facility] Bmwlaioqos085[address] [place], [place] [address]Dr. Chrissy Frazier Epithelial cells LM Ql (Urine sed) FEW Abnormal NONE SEEN /RARE [facility] Comment on above: Performed By: #### U AMIC ####[facility] Qxtkupxrbt288[address] [place], [place] [address]Dr. Chrissy Frazier Glucose Ql (U) Negative Normal NEGATIVE [facility] Comment on above: Performed By: #### U AMIC ####[facility] Fwoclsfjis80[address] [place], [place] [address]Dr. Chrissy Frazier Hemoglobin Ql (U) Negative Normal NEGATIVE [facility] Comment on above: Performed By: #### U AMIC ####[facility] Dbdnwwscbu9500[address] [place], [place] [address]Dr. Chrissy Frazier Ketones Ql (U) 15 mg/dl Abnormal NEGATIVE [facility] Comment on above: Performed By: #### U AMIC ####[facility] Yrixhfamtl69[address] [place], [place] [address]Dr. Chrissy Frazier LEUKOCYTES Negative Normal NEGATIVE [facility] Comment on above: Performed By: #### U AMIC ####[facility] Qvdmqbucta501[address] [place], [place] [address]Dr. Chrissy Frazier MUCOUS NONE SEEN Normal NONE SEEN [facility] Comment on above: Performed By: #### U AMIC ####[facility] Kqmdamkkta7825[address] [place], [place] [address]Dr. Chrissy Frazier Nitrite Ql (U) Negative Normal NEGATIVE [facility] Comment on above: Performed By: #### U AMIC ####[facility] Unlohgapdy1604[address] [place], [place] [address]Dr. Chrissy Frazier pH (U) 6.0 [pH] Normal 5-9 [facility] Comment on above: Performed By: #### U AMIC ####[facility] Fxokqtkcxw797[address] [place], [place] [address]Dr. Chrissy Frazier RBC 0-2 Normal 0-2 [facility] Comment on above: Performed By: #### U AMIC ####[facility] Bbobasquoj[address] [place] [address]Dr. Chrissy Frazier SPEC GRAVITY 1.010 Normal 1.005-<=1.025 [facility] Comment on above: Performed By: #### U AMIC ####[facility] Bcvfvblkix[address] [place] [address]Dr. Chrissy Freddie UA PROTEIN Negative Normal NEGATIVE/ TRACE [facility] Comment on above: Performed By: #### U AMIC ####[facility] Wlgoukkyeu[address] [place] [address]Dr. Chrissy Freddie Urobilinogen Qn (U) 0.2 {Estrellita'U}/dL Normal 0.2 - 1. 0 [facility] Comment on above: Performed By: #### U AMIC ####[facility] Qafdvpiyha997[address] [place], [place] [address]Dr. Chrissy Freddie WBC NONE SEEN Normal NONE SEEN [facility] Comment on above: Performed By: #### U AMIC ####[facility] Lhcxgzigru6865[address] [place], [place] [address]Dr. Chrissy Freddie AMYLASEon 10-22-2022 Amylase [Catalytic activity/Vol] 28 U/L Normal 25-115 [facility] Comment on above: Performed By: #### L IPA, CMP, TERRENCE ####[facility] Fxlubwjaua[address] [place], [place] [address]Dr. Chrissy Freddie CBC AUTO DIFFon 10-22-2022 BASO # 0.0 103/ul Normal 0.0-0.1 [facility] Comment on above: Performed By: #### C BC ####[facility] Erdursvlyu8232[address] [place], [place] [address]Dr. Tishrowan Frazier Basophils/100 WBC (Bld) 0.2 % Normal 0.2-2.0 [facility] Comment on above: Performed By: #### C BC ####[facility] Nzezfslchp024[address] [place], [place] [address]Dr. Chrissy Frazier EO # 0.0 103/ul Normal 0.0-0.7 [facility] Comment on above: Performed By: #### C BC ####[facility] Dsaiflvbwd[address] [place] [address]Dr. Chrissy Frazier Eosinophils/100 WBC (Bld) 0.1 % Critically low 0.9-7.0 [facility] Comment on above: Performed By: #### C BC ####[facility] Etcttpctva[address] [place] [address]Dr. Chrissy Frazier Erythrocyte distribution width (RBC) [Ratio] 14.4 % Normal 11.0-15.0 [facility] Comment on above: Performed By: #### C BC ####[facility] Vunymmwnzr0513[address] [place], [place] [address]Dr. Chrissy Frazier Hematocrit (Bld) [Volume fraction] 45.2 % Normal 42.0-54.0 [facility] Comment on above: Performed By: #### C BC ####[facility] Jjmnebceda665[address] [place], [place] [address]Dr. Chrissy Frazier Hemoglobin (Bld) [Mass/Vol] 15.4 g/dL Normal 14.0-18.0 [facility] Comment on above: Performed By: #### C BC ####[facility] Scwmrthvxf234[address] [place], [place] [address]Dr. Chrissy Frazier IG # 0.07 10e3/ul Critically high 0.00-0.03 [facility] Comment on above: Performed By: #### C BC ####[facility] Gaizxrsjnu[address] [place] [address]Dr. Chrissy Frazier IG % 0.4 % Normal 0.0-0.5 [facility] Comment on above: Performed By: #### C BC ####[facility] Rrkfbnuosa8[address] [place], [place] [address]Dr. Chrissy Frazier LYMPH # 2.0 103/ul Normal 1.2-3.8 [facility] Comment on above: Performed By: #### C BC ####[facility] Nvomkxkxny137[address] [place], [place] [address]Dr. Chrissy Frazier Lymphocytes/100 WBC (Bld) 12.2 % Critically low 20.5-60.0 [facility] Comment on above: Performed By: #### C BC ####[facility] Yggooikppx30[address] [place] [address]DrNancy Frazier MANUAL DIFF REQ NO Normal [facility] Comment on above: Performed By: #### C BC ####[facility] Uwtmrwvpwh[address] [place] [address]Dr. Chrissy Frazier MCH (RBC) [Entitic mass] 28.3 pg Normal 25.9-34.0 [facility] Comment on above: Performed By: #### C BC ####[facility] Otfyqxsylv9[address] [place], [place] [address]Dr. Chrissy Frazier MCHC (RBC) [Mass/Vol] 34.1 g/dL Normal 29.9-35.2 [facility] Comment on above: Performed By: #### C BC ####[facility] Rpsaqedeim307[address] [place], [place] [address]Dr. Chrissy Frazier MCV (RBC) [Entitic vol] 82.9 fL Normal 80.0-94.0 [facility] Comment on above: Performed By: #### C BC ####[facility] Vjgfywfmdo[address] [place], [place] [address]Dr. Chrissy Frazier MONO # 0.3 103/ul Normal 0.3-0.8 [facility] Comment on above: Performed By: #### C BC ####[facility] Xebzzjrumf8[address] [place], [place] [address]Dr. Chrissy Frazier Monocytes/100 WBC (Bld) 2.0 % Normal 1.7-12.0 [facility] Comment on above: Performed By: #### C BC ####[facility] Ehjgsmyxfm35[address] [place], [place] [address]DrNancy Frazier NEUT # 14.0 103/ul Critically high 1.4-6.5 [facility] Comment on above: Performed By: #### C BC ####[facility] Lcenxxygcb3288[address] [place], [place] [address]Dr. Chrissy Frazier Neutrophils/100 WBC (Bld) 85.1 % Critically high 43.0-75.0 [facility] Comment on above: Performed By: #### C BC ####[facility] Bcrdnfvdbv[address] [place] [address]Dr. Chrissy Frazier Platelet mean volume (Bld) [Entitic vol] 10.6 fL Normal 9.5-13.5 [facility] Comment on above: Performed By: #### C BC ####[facility] Mkgodgjipk[address] [place] [address]Dr. Chrissy Frazier PLT 411 103/ul Normal 150-450 [facility] Comment on above: Performed By: #### C BC ####[facility] Dwjblbqnoi47[address] [place] [address]Dr. Tishrowan Frazier RBC 5.45 106/ul Normal 4.70-6.10 [facility] Comment on above: Performed By: #### C BC ####[facility] Btvrxqkkjo[address] [place], [place] [address]Dr. Chrissy Frazier WBC 16.5 103/ul Critically high 4.0-11.0 [facility] Comment on above: Performed By: #### C BC ####[facility] Fuqdgbfnek4420[address] [place], [place] [address]Dr. Chrissy Freddie LIPASEon 10-22-2022 Lipase [Catalytic activity/Vol] 57.0 U/L Critically low 73.0-393.0 [facility] Comment on above: Performed By: #### L JULIEN CMP, TERRENCE ####[facility] Ijhjhntloj[address] [place] [address]Dr. Chrissy Frazier PROF 14(COMP METB)on 022 Albumin [Mass/Vol] 4.2 g/dL Normal 3.4-5.0 [facility] Comment on above: Performed By: #### L IPA CMP, TERRENCE ####[facility] Typfeasnnn47[address] [place] [address]Dr. Chrissy Frazier Albumin/Globulin [Mass ratio] 1.0 {ratio} Normal [facility] Comment on above: Performed By: #### L IPA, CMP, TERRENCE ####[facility] Vepqeetqap19[address] [place] [address]Dr. Chrissy Frazier ALP [Catalytic activity/Vol] 92 U/L Normal 46-116 [facility] Comment on above: Performed By: #### L IPA, CMP, TERRENCE ####[facility] Ucmgehpfhz09[address] [place] [address]Dr. Chrissy Frazier ALT [Catalytic activity/Vol] 26 U/L Normal 16-63 [facility] Comment on above: Performed By: #### L IPA, CMP, TERRENCE ####[facility] Dkvukjdqwg8183 [place] [address]Dr. Chrissy Frazier Anion gap [Moles/Vol] 19.5 mmol/L Normal [facility] Comment on above: Performed By: #### L IPA, CMP, TERRENCE ####[facility] Ilcsxdctys9[address] [place], [place] [address]Dr. Chrissy Frazier AST [Catalytic activity/Vol] 19 U/L Normal 15-37 [facility] Comment on above: Performed By: #### L IPA, CMP, TERRENCE ####[facility] Ngkcpdnvdh998[address] [place], [place] [address]Dr. Chrissy Frazier Bilirubin [Mass/Vol] 0.7 mg/dL Normal 0.2-1.0 [facility] Comment on above: Performed By: #### L IPA, CMP, TERRENCE ####[facility] Ndsuqpwaai[address] [place] [address]Dr. Chrissy Frazier Calcium [Mass/Vol] 9.6 mg/dL Normal 8.5-10.1 [facility] Comment on above: Performed By: #### L IPA, CMP, TERRENCE ####[facility] Wnknhjymjk35[address] [place] [address]Dr. Chrissy Frazier Chloride [Moles/Vol] 102 mmol/L Normal 98-107 [facility] Comment on above: Performed By: #### L IPA, CMP, TERRENCE ####[facility] Zizetucrut0635 [place] [address]Dr. Chrissy Frazier CO2 [Moles/Vol] 19.1 mmol/L Critically low 21.0-32.0 [facility] Comment on above: Performed By: #### L IPA CMP, TERRENCE ####[facility] Toobxbdyld[address] [place] [address]Dr. Chrissy Frazier Creatinine [Mass/Vol] 1.47 mg/dL Critically high 0.70-1.30 [facility] Comment on above: Performed By: #### L IPA CMP, TERRENCE ####[facility] Ifbkglvjwc503[address] [place], [place] [address]Dr. Chrissy Freddie EGFR-AF BAHAMIAN >60 Normal >=60 [facility] Comment on above: Performed By: #### L IPA CMP, TERRENCE ####[facility] Xxnrixrttf364[address] [place], [place] [address]Dr. Tishrowan Freddie EGFR-NON AF BAHAMIAN 56 mL/min/1.73m2 Critically low >=60 [facility] Comment on above: Performed By: #### L IPA CMP, TERRENCE ####[facility] Irixupbwfn01[address] [place], [place] [address]Dr. Chrissy Frazier Globulin (S) [Mass/Vol] 4.3 g/dL Normal [facility] Comment on above: Performed By: #### L IPA CMP, TERRENCE ####[facility] Fuzobqcjut7[address] [place], [place] [address]Dr. Chrissy Frazier Glucose [Mass/Vol] 189 mg/dL Critically high 74-106 [facility] Comment on above: Performed By: #### L IPA CMP, TERRENCE ####[facility] Vwsthmwxuw314[address] [place], [place] [address]Dr. Chrissy Frazier Potassium [Moles/Vol] 4.6 mmol/L Normal 3.5-5.1 [facility] Comment on above: Performed By: #### L IPA CMP, TERRENCE ####[facility] Iajcupdzxg1600[address] [place], [place] [address]Dr. Chrissy Frazier Protein [Mass/Vol] 8.5 g/dL Critically high 6.4-8.2 [facility] Comment on above: Performed By: #### L IPA CMP, TERRENCE ####[facility] Tnckcpzpyi[address] [place] [id number]. Chrissy Freddie Sodium [Moles/Vol] 136 mmol/L Normal 136-145 [facility] Comment on above: Performed By: #### L IPA, CMP, TERRENCE ####[facility] Pphwkfjmmf5[address] [place] [address]Dr. Chrissy Freddie Urea nitrogen [Mass/Vol] 16.0 mg/dL Normal 7.0-18.0 [facility] Comment on above: Performed By: #### L IPA, CMP, TERRENCE ####[facility] Eenldwjrnh[address] [place] [address]Dr. Tishrowan Frazier Urea nitrogen/Creatinine [Mass ratio] 10.9 mg/mg Normal [facility] Comment on above: Performed By: #### L IPA, CMP, TERRENCE ####[facility] Zhufzvthua312[address] [place], [place] [address]Dr. Tishrowan Frazier AMYLASEon 09-03-2022 Amylase [Catalytic activity/Vol] 25 U/L Normal 25-115 [facility] Comment on above: Performed By: #### L IPA, TERRENCE, CMP ####[facility] Tufbrmkwcj[address] [place], [place] [address]Dr. Chrissy Frazier CBC AUTO DIFFon 09-03-2022 BASO # 0.0 103/ul Normal 0.0-0.1 [facility] Comment on above: Performed By: #### C BC ####[facility] Kjqfotqvie[address] [place], [place] [address]Dr. Chrissy Frazier Basophils/100 WBC (Bld) 0.1 % Critically low 0.2-2.0 [facility] Comment on above: Performed By: #### C BC ####[facility] Mncalymtfi[address] [place], [place] [address]Dr. Chrissy Frazier EO # 0.0 103/ul Normal 0.0-0.7 [facility] Comment on above: Performed By: #### C BC ####[facility] Ggxrnyuley14[address] [place], [place] [address]Dr. Chrissy Frazier Eosinophils/100 WBC (Bld) 0.1 % Critically low 0.9-7.0 [facility] Comment on above: Performed By: #### C BC ####[facility] Ciivkysvmt300[address] [place] [address]Dr. Chrissy Frazier Erythrocyte distribution width (RBC) [Ratio] 14.0 % Normal 11.0-15.0 [facility] Comment on above: Performed By: #### C BC ####[facility] Dhziktrzbs5[address] [place] [address]Dr. Chrissy Frazier Hematocrit (Bld) [Volume fraction] 42.5 % Normal 42.0-54.0 [facility] Comment on above: Performed By: #### C BC ####[facility] Uzjdmwvazd[address] [place], [place] [address]Dr. Chrissy Frazier Hemoglobin (Bld) [Mass/Vol] 14.1 g/dL Normal 14.0-18.0 [facility] Comment on above: Performed By: #### C BC ####[facility] Ssniupyqjm[address] [place], [place] [address]Dr. Chrissy Frazier IG # 0.06 10e3/ul Critically high 0.00-0.03 [facility] Comment on above: Performed By: #### C BC ####[facility] Hsivngoqef456[address] [place], [place] [address]Dr. Chrissy Frazier IG % 0.4 % Normal 0.0-0.5 [facility] Comment on above: Performed By: #### C BC ####[facility] Qbwfofdouz12[address] [place], [place] [address]Dr. Chrissy Frazier LYMPH # 2.5 103/ul Normal 1.2-3.8 [facility] Comment on above: Performed By: #### C BC ####[facility] Jepcoqaktf8[address] [place], [place] [address]Dr. Chrissy Frazier Lymphocytes/100 WBC (Bld) 16.3 % Critically low 20.5-60.0 [facility] Comment on above: Performed By: #### C BC ####[facility] Prslvsdnem[address] [place], [place] [address]Dr. Chrissy Frazier MANUAL DIFF REQ NO Normal [facility] Comment on above: Performed By: #### C BC ####[facility] Zfqnuwdigr5[address] [place] [id number] Chrissy Freddie MCH (RBC) [Entitic mass] 28.1 pg Normal 25.9-34.0 [facility] Comment on above: Performed By: #### C BC ####[facility] Pqmzybegux76[address] [place] [address]Dr. Chrissy Frazier MCHC (RBC) [Mass/Vol] 33.2 g/dL Normal 29.9-35.2 [facility] Comment on above: Performed By: #### C BC ####[facility] Pwizhyoiql5950 [place] [address]DrNancy Frazier MCV (RBC) [Entitic vol] 84.8 fL Normal 80.0-94.0 [facility] Comment on above: Performed By: #### C BC ####[facility] Uzzheqmkts[address] [place], [place] [address]DrNancy Frazier MONO # 1.1 103/ul Critically high 0.3-0.8 [facility] Comment on above: Performed By: #### C BC ####[facility] [address]cdsipkpqw[address] [place], [place] [address]DrNancy Frazier Monocytes/100 WBC (Bld) 7.4 % Normal 1.7-12.0 [facility] Comment on above: Performed By: #### C BC ####[facility] Vdxvobgcgk[address] [place], [place] [address]DrNancy Frazier NEUT # 11.5 103/ul Critically high 1.4-6.5 [facility] Comment on above: Performed By: #### C BC ####[facility] [address]em[address]cxmvt[address] [place], [place] [id number] Frazier Neutrophils/100 WBC (Bld) 75.7 % Critically high 43.0-75.0 [facility] Comment on above: Performed By: #### C BC ####[facility] Mzjhllfxfq[address] [place], [place] [address]DrNancy Frazier Platelet mean volume (Bld) [Entitic vol] 10.6 fL Normal 9.5-13.5 [facility] Comment on above: Performed By: #### C BC ####[facility] Pxzdpxbbll[address] [place] [address]Dr. Chrissy Frazier PLT 310 103/ul Normal 150-450 [facility] Comment on above: Performed By: #### C BC ####[facility] Xivhcmhsbr8882 [place] [address]Dr. Chrissy Frazier RBC 5.01 106/ul Normal 4.70-6.10 [facility] Comment on above: Performed By: #### C BC ####[facility] Kzvelbmrxy5324 [place] [address]Dr. Chrissy Frazier WBC 15.2 103/ul Critically high 4.0-11.0 [facility] Comment on above: Performed By: #### C BC ####[facility] Kuaqwglfoh[address] [place], [place] [address]Dr. Chrissy Frazier LIPASEon 09-03-2022 Lipase [Catalytic activity/Vol] 46.0 U/L Critically low 73.0-393.0 [facility] Comment on above: Performed By: #### L TERRENCE VICTORIA, CMP ####[facility] Kxpawkbbyu29[address] [place], [place] [address]Dr. Chrissy Frazier PROF 14(COMP METB)on 022 Albumin [Mass/Vol] 3.7 g/dL Normal 3.4-5.0 [facility] Comment on above: Performed By: #### L TERRENCE VICTORIA, CMP ####[facility] Tdduzbqsio40[address] [place], [place] [address]Dr. Chrissy Frazier Albumin/Globulin [Mass ratio] 1.0 {ratio} Normal [facility] Comment on above: Performed By: #### L TERRENCE VITCORIA, CMP ####[facility] Cvestifgeg[address] [place], [place] [address]Dr. Chrissy Frazier ALP [Catalytic activity/Vol] 65 U/L Normal 46-116 [facility] Comment on above: Performed By: #### L TERRENCE VICTORIA, CMP ####[facility] Dsaihbohno88[address] [place] [address]Dr. Chrissy Frazier ALT [Catalytic activity/Vol] 42 U/L Normal 16-63 [facility] Comment on above: Performed By: #### L TERRENCE VICTORIA, CMP ####[facility] Oialsgccci5415 [place] [address]Dr. Chrissy Frazier Anion gap [Moles/Vol] 14.4 mmol/L Normal [facility] Comment on above: Performed By: #### L TERRENCE VICTORIA, CMP ####[facility] Vtfwbwauij[address] [place], [place] [address]Dr. Chrissy Frazier AST [Catalytic activity/Vol] 16 U/L Normal 15-37 [facility] Comment on above: Performed By: #### L TERRENCE VICTORIA, CMP ####[facility] Hnxnvpizye[address] [place], [place] [address]Dr. Chrissy Frazier Bilirubin [Mass/Vol] 0.4 mg/dL Normal 0.2-1.0 [facility] Comment on above: Performed By: #### L TERRENCE VICTORIA, CMP ####[facility] Kgyacvkysx0627[address] [place], [place] [address]Dr. Chrissy Frazier Calcium [Mass/Vol] 8.7 mg/dL Normal 8.5-10.1 [facility] Comment on above: Performed By: #### L TERRENCE VICTORIA, CMP ####[facility] Lkygltybfp098[address] [place], [place] [address]Dr. Chrissy Frazier Chloride [Moles/Vol] 105 mmol/L Normal 98-107 [facility] Comment on above: Performed By: #### L TERRENCE VICTORIA, CMP ####[facility] Txdqxvwldu8548 [place] [address]Dr. Chrissy Frazier CO2 [Moles/Vol] 22.6 mmol/L Normal 21.0-32.0 [facility] Comment on above: Performed By: #### L TERRENCE VICTORIA, CMP ####[facility] Zxcjzwtzrs20[address] [place], [place] [address]Dr. Chrissy Frazier Creatinine [Mass/Vol] 1.11 mg/dL Normal 0.70-1.30 [facility] Comment on above: Performed By: #### L IPA TERRENCE, CMP ####[facility] Yyrajunrbe1898 [place] [id number]. Chrissy Frazier EGFR-AF BAHAMIAN >60 Normal >=60 [facility] Comment on above: Performed By: #### L IPA TERRENCE, CMP ####[facility] Axdniabchr8397 [place] [id number]. Chrissy Frazier EGFR-NON AF BAHAMIAN >60 Normal >=60 [facility] Comment on above: Performed By: #### L IPA TERRENCE, CMP ####[facility] Zgnrrrhmem5532 [place] [address]Dr. Chrissy Frazier Globulin (S) [Mass/Vol] 3.7 g/dL Normal [facility] Comment on above: Performed By: #### L JULIEN TERRENCE, CMP ####[facility] Edjrwdfxmg4442 [place] [address]Dr. Chrissy Frazier Glucose [Mass/Vol] 121 mg/dL Critically high 74-106 [facility] Comment on above: Performed By: #### L JULIEN TERRENCE, CMP ####[facility] Fvkyguzjjh6603 [place] [address]Dr. Chrissy Frazier Potassium [Moles/Vol] 4.0 mmol/L Normal 3.5-5.1 [facility] Comment on above: Performed By: #### L JULIEN TERRENCE, CMP ####[facility] Zxichsppea3[address] [place] [address]Dr. Chrissy Frazier Protein [Mass/Vol] 7.4 g/dL Normal 6.4-8.2 [facility] Comment on above: Performed By: #### L JULIEN TERRENCE, CMP ####[facility] Yifqnximvw3003 [place] [address]Dr. Chrissy Frazier Sodium [Moles/Vol] 138 mmol/L Normal 136-145 [facility] Comment on above: Performed By: #### L IPA TERRENCE, CMP ####[facility] Suaplwbzfm5427 [place] [address]Dr. Chrissy Frazier Urea nitrogen [Mass/Vol] 6.0 mg/dL Critically low 7.0-18.0 [facility] Comment on above: Performed By: #### L IPA, TERRENCE, CMP ####[facility] Xcajzvixex[address] [place], [place] [address]Dr. Chrissy Frazier Urea nitrogen/Creatinine [Mass ratio] 5.4 mg/mg Normal [facility] Comment on above: Performed By: #### L IPA, TERRENCE, CMP ####[facility] Gjpllxxgdr175[address] [place], [place] [address]Dr. Chrissy Frazier AMYLASEon 09-02-2022 Amylase [Catalytic activity/Vol] 29 U/L Normal 25-115 [facility] Comment on above: Performed By: #### A MY, CMP, LIPA ####[facility] Ujlpcswxdz[address] [place], [place] [address]Dr. Chrissy Frazier CBC AUTO DIFFon 09-02-2022 BASO # 0.1 103/ul Normal 0.0-0.1 [facility] Comment on above: Performed By: #### C BC ####[facility] Xdhjdwgiat17[address] [place], [place] [address]Dr. Chrissy Frazier Basophils/100 WBC (Bld) 0.4 % Normal 0.2-2.0 [facility] Comment on above: Performed By: #### C BC ####[facility] Zymfsxmoga39[address] [place], [place] [address]Dr. Chrissy Frazier EO # 0.1 103/ul Normal 0.0-0.7 [facility] Comment on above: Performed By: #### C BC ####[facility] Wplupxgoac[address] [place], [place] [address]Dr. Chrissy Frazier Eosinophils/100 WBC (Bld) 0.7 % Critically low 0.9-7.0 [facility] Comment on above: Performed By: #### C BC ####[facility] Dkcbaugzrd77[address] [place], [place] [address]Dr. Chrissy Frazier Erythrocyte distribution width (RBC) [Ratio] 13.7 % Normal 11.0-15.0 [facility] Comment on above: Performed By: #### C BC ####[facility] Sjfaebqkup17[address] [place] [id number]. Chrissy Frazier Hematocrit (Bld) [Volume fraction] 48.3 % Normal 42.0-54.0 [facility] Comment on above: Performed By: #### C BC ####[facility] Djlxpohfgm9718 [place] [id number]. Chrissy Frazier Hemoglobin (Bld) [Mass/Vol] 16.0 g/dL Normal 14.0-18.0 [facility] Comment on above: Performed By: #### C BC ####[facility] Uixoyuqvvs0639 [place] [id number]. Chrissy Freddie IG # 0.09 10e3/ul Critically high 0.00-0.03 [facility] Comment on above: Performed By: #### C BC ####[facility] Umuzkpdzpv2364 [place] [address]Dr. Chrissy Frazier IG % 0.5 % Normal 0.0-0.5 [facility] Comment on above: Performed By: #### C BC ####[facility] Rbftpjlceo2347 [place] [address]Dr. Tishrowan Frazier LYMPH # 3.7 103/ul Normal 1.2-3.8 [facility] Comment on above: Performed By: #### C BC ####[facility] Uxcutzznay7341 [place] [address]Dr. Tishrowan Frazier Lymphocytes/100 WBC (Bld) 21.5 % Normal 20.5-60.0 [facility] Comment on above: Performed By: #### C BC ####[facility] Ngndmxhprv8403 [place] [id number]. Tishrowan Frazier MANUAL DIFF REQ NO Normal [facility] Comment on above: Performed By: #### C BC ####[facility] Uujpehluhq1377 [place] [address]Dr. Chrissy Freddie MCH (RBC) [Entitic mass] 28.1 pg Normal 25.9-34.0 [facility] Comment on above: Performed By: #### C BC ####[facility] Vmpvcaxuuc2102 [place] [id number]. Chrissy Frazier MCHC (RBC) [Mass/Vol] 33.1 g/dL Normal 29.9-35.2 [facility] Comment on above: Performed By: #### C BC ####[facility] Gjszmpbafp3905 [place] [id number]. Chrissy Frazier MCV (RBC) [Entitic vol] 84.7 fL Normal 80.0-94.0 [facility] Comment on above: Performed By: #### C BC ####[facility] Hxihwjphdm8441 [place] [id number]. Chrissy Frazier MONO # 0.7 103/ul Normal 0.3-0.8 [facility] Comment on above: Performed By: #### C BC ####[facility] Yzimbjrggf8772 [place] [address]Dr. Chrissy Frazier Monocytes/100 WBC (Bld) 4.2 % Normal 1.7-12.0 [facility] Comment on above: Performed By: #### C BC ####[facility] Hyfegeieby[address] [place], [place] [address]Dr. Chrissy Frazier NEUT # 12.4 103/ul Critically high 1.4-6.5 [facility] Comment on above: Performed By: #### C BC ####[facility] Oamueuwgmq6247 [place] [id number]. Chrissy Frazier Neutrophils/100 WBC (Bld) 72.7 % Normal 43.0-75.0 [facility] Comment on above: Performed By: #### C BC ####[facility] Rihixuinui8226 [place] [id number]. Chrissy Frazier Platelet mean volume (Bld) [Entitic vol] 10.9 fL Normal 9.5-13.5 [facility] Comment on above: Performed By: #### C BC ####[facility] Jrnbqsdikn6291 [place] [id number]. Chrissy Freddie PLT 386 103/ul Normal 150-450 [facility] Comment on above: Performed By: #### C BC ####[facility] Cwpyjkuwur0408 [place], [place] [address]Ww. Chrissy Frazier RBC 5.70 106/ul Normal 4.70-6.10 [facility] Comment on above: Performed By: #### C BC ####[facility] Aohijvnbxd2593 [place] [id number]. Chrissy Frazier WBC 17.0 103/ul Critically high 4.0-11.0 [facility] Comment on above: Performed By: #### C BC ####[facility] Xxvibfuums6931 [place] [id number]. Chrissy Frazier Covid-19 PCR (CVDTBH)on 08-21 SARS-CoV-2 (COVID-19) RNA RHIANNON+probe Ql (Unsp spec) Not detected Normal NOT DETECTED [facility] Comment on above: Result Comment: [...] for this test is supported by the [place] of Health and Human Service's declaration that [...] be used). Performed By: #### C VDTBH ####[facility] Hbniayakkz0933 [place] [id number]. Chrissy Frazier LACTATE/LACTIC ACIDon 2021 Lactate [Moles/Vol] 7.1 mmol/L Critically high 0.4-1.9 [facility] Comment on above: Performed By: #### L ACT ####[facility] Kpptjfywpr9962 [place] [id number]. Chrissy Frazier Lactate [Moles/Vol] 8.6 mmol/L Critically high 0.4-1.9 [facility] Comment on above: Performed By: #### L ACT ####[facility] Eicajjjebu07[address] [place], [place] [address]Dr. Chrissy Frazier LIPASEon 09-02-2022 Lipase [Catalytic activity/Vol] 60.0 U/L Critically low 73.0-393.0 [facility] Comment on above: Performed By: #### A MY, CMP, LIPA ####[facility] Wlvlmdsiaf14[address] [place], [place] [address]Dr. Chrissy Frazier POINT OF CARE GLUCOSEon 08-21 Glucose [Mass/Vol] 140 mg/dL Critically high 74-106 [facility] Comment on above: Performed By: #### P OCGLUC ####[facility] Ehtyhzontx36[address] [place], [place] [address]Dr. Chrissy Frazier PROF 14(COMP METB)on 022 Albumin [Mass/Vol] 4.3 g/dL Normal 3.4-5.0 [facility] Comment on above: Performed By: #### A MY, CMP, LIPA ####[facility] Hqfduyojue96[address] [place], [place] [address]Dr. Chrissy Frazier Albumin/Globulin [Mass ratio] 1.0 {ratio} Normal [facility] Comment on above: Performed By: #### A MY, CMP, LIPA ####[facility] Okhfmawiiv1456 [place] [address]Dr. Chrissy Frazier ALP [Catalytic activity/Vol] 82 U/L Normal 46-116 [facility] Comment on above: Performed By: #### A MY, CMP, LIPA ####[facility] Zybakssgtr5672 [place] [address]Dr. Chrissy Frazier ALT [Catalytic activity/Vol] 48 U/L Normal 16-63 [facility] Comment on above: Performed By: #### A MY, CMP, LIPA ####[facility] Nbmhpmvtku2165 [place] [address]Dr. Chrissy Frazier Anion gap [Moles/Vol] 25.3 mmol/L Normal [facility] Comment on above: Performed By: #### A MY, CMP, LIPA ####[facility] Nsqjppiauv2367 [place] [address]Dr. Chrissy Frazier AST [Catalytic activity/Vol] 33 U/L Normal 15-37 [facility] Comment on above: Performed By: #### A MY, CMP, LIPA ####[facility] Yzzdtajciv25[address] [place], [place] [address]Dr. Chrissy Frazier Bilirubin [Mass/Vol] 0.7 mg/dL Normal 0.2-1.0 [facility] Comment on above: Performed By: #### A MY, CMP, LIPA ####[facility] Ycqcgpwywg[address] [place], [place] [address]Dr. Chrissy Frazier Calcium [Mass/Vol] 9.5 mg/dL Normal 8.5-10.1 [facility] Comment on above: Performed By: #### A MY, CMP, LIPA ####[facility] Lxrsxnvvyd66[address] [place], [place] [address]Dr. Chrissy Frazier Chloride [Moles/Vol] 100 mmol/L Normal 98-107 [facility] Comment on above: Performed By: #### A MY, CMP, LIPA ####[facility] Nnhcpkeyxv0904[address] [place], [place] [address]Dr. Chrissy Frazier CO2 [Moles/Vol] 14.2 mmol/L Critically low 21.0-32.0 [facility] Comment on above: Performed By: #### A MY, CMP, LIPA ####[facility] Ngviqeyaut69[address] [place], [place] [address]Dr. Chrissy Frazier Creatinine [Mass/Vol] 1.70 mg/dL Critically high 0.70-1.30 [facility] Comment on above: Performed By: #### A MY, CMP, LIPA ####[facility] Virvjgwiyi0864[address] [place], [place] [address]Dr. Chrissy Frazier EGFR-AF BAHAMIAN 57 mL/min/1.73m2 Critically low >=60 [facility] Comment on above: Performed By: #### A MY, CMP, LIPA ####[facility] Acwqhxicrc5805 [place] [id number]. Chrissy Frazier EGFR-NON AF BAHAMIAN 47 mL/min/1.73m2 Critically low >=60 [facility] Comment on above: Performed By: #### A MY, CMP, LIPA ####[facility] Ujfnwdasje5925 [place] [address]Dr. Chrissy Frazier Globulin (S) [Mass/Vol] 4.2 g/dL Normal [facility] Comment on above: Performed By: #### A MY, CMP, LIPA ####[facility] Zxvatshbws5163 [place] [address]Dr. Chrissy Frazier Glucose [Mass/Vol] 212 mg/dL Critically high 74-106 [facility] Comment on above: Performed By: #### A MY, CMP, LIPA ####[facility] Dqzwxmnafb5946 [place] [address]Dr. Chrissy Frazier Potassium [Moles/Vol] 3.5 mmol/L Normal 3.5-5.1 [facility] Comment on above: Performed By: #### A MY, CMP, LIPA ####[facility] Lzcxcsvxxw8033 [place] [address]Dr. Chrissy Frazier Protein [Mass/Vol] 8.5 g/dL Critically high 6.4-8.2 [facility] Comment on above: Performed By: #### A MY, CMP, LIPA ####[facility] Ubuicxfblm2476 [place] [address]Dr. Chrissy Frazier Sodium [Moles/Vol] 136 mmol/L Normal 136-145 [facility] Comment on above: Performed By: #### A MY, CMP, LIPA ####[facility] Zdnbyzgvxm3996 [place] [address]Dr. Chrissy Frazier Urea nitrogen [Mass/Vol] 9.0 mg/dL Normal 7.0-18.0 [facility] Comment on above: Performed By: #### A MY, CMP, LIPA ####[facility] Yqievagnej4613 [place] [address]Dr. Yilan Frazier Urea nitrogen/Creatinine [Mass ratio] 5.3 mg/mg Normal [facility] Comment on above: Performed By: #### A MY, CMP, LIPA ####[facility] Myybrzwaef11[address] [place], [place] [address]Dr. Chrissy Frazier AMYLASEon 07-07-2022 Amylase [Catalytic activity/Vol] 33 U/L Normal 25-115 [facility] Comment on above: Performed By: #### C MP, TERRENCE, BNP, LIPA ####[facility] Hdxtwuqstu[address] [place], [place] [address]Dr. Chrissy Frazier BNPon 07-07-2022 Natriuretic peptide B (Bld) [Mass/Vol] 29.0 pg/mL Normal <=450.0 [facility] Comment on above: Performed By: #### C MP, TERRENCE, BNP, LIPA ####[facility] Icdmrptxqh28[address] [place], [place] [address]Dr. Chrissy Frazier CBC AUTO DIFFon 07-07-2022 BASO # 0.0 103/ul Normal 0.0-0.1 [facility] Comment on above: Performed By: #### C BC ####[facility] Cditcqgcnz[address] [place], [place] [address]Dr. Chrissy Frazier Basophils/100 WBC (Bld) 0.4 % Normal 0.2-2.0 [facility] Comment on above: Performed By: #### C BC ####[facility] Hojjhnggfl199[address] [place], [place] [address]Dr. Chrissy Frazier EO # 0.3 103/ul Normal 0.0-0.7 [facility] Comment on above: Performed By: #### C BC ####[facility] Jvjnxzromq[address] [place], [place] [address]Dr. Chrissy Frazier Eosinophils/100 WBC (Bld) 3.0 % Normal 0.9-7.0 [facility] Comment on above: Performed By: #### C BC ####[facility] Jwktbfguwx07[address] [place], [place] [address]Dr. Chrissy Frazier Erythrocyte distribution width (RBC) [Ratio] 14.0 % Normal 11.0-15.0 [facility] Comment on above: Performed By: #### C BC ####[facility] Sjggjveybf9321 [place] [address]DrNancy Frazier Hematocrit (Bld) [Volume fraction] 42.8 % Normal 42.0-54.0 [facility] Comment on above: Performed By: #### C BC ####[facility] Hoowpiwzoa1005 [place] [address]DrNancy Frazier Hemoglobin (Bld) [Mass/Vol] 14.3 g/dL Normal 14.0-18.0 [facility] Comment on above: Result Comment: IV F LUIDS RUNNING Performed By: #### C BC ####[facility] Bimiwxtgfj[address] [place], [place] [address]DrNancy Frazier IG # 0.05 10e3/ul Critically high 0.00-0.03 [facility] Comment on above: Performed By: #### C BC ####[facility] Vzwtighnls[address] [place], [place] [address]DrNancy Frazier IG % 0.5 % Normal 0.0-0.5 [facility] Comment on above: Performed By: #### C BC ####[facility] Zdxkbcgoqf[address] [place], [place] [address]DrNancy Frazier LYMPH # 2.4 103/ul Normal 1.2-3.8 [facility] Comment on above: Performed By: #### C BC ####[facility] Hwcyldyjih94[address] [place], [place] [address]DrNancy Frazier Lymphocytes/100 WBC (Bld) 25.5 % Normal 20.5-60.0 [facility] Comment on above: Performed By: #### C BC ####[facility] Zcfdscjnlw[address] [place], [place] [address]DrNancy Frazier MANUAL DIFF REQ NO Normal [facility] Comment on above: Performed By: #### C BC ####[facility] Omoevjpcxx8614 [place] [address]DrNancy Frazier MCH (RBC) [Entitic mass] 28.5 pg Normal 25.9-34.0 [facility] Comment on above: Performed By: #### C BC ####[facility] Bxrimaewhf1411 [place] [address]Dr. Chrissy Frazier MCHC (RBC) [Mass/Vol] 33.4 g/dL Normal 29.9-35.2 [facility] Comment on above: Performed By: #### C BC ####[facility] Egtqnwcgbo6907 [place] [address]Dr. Chrissy Frazier MCV (RBC) [Entitic vol] 85.3 fL Normal 80.0-94.0 [facility] Comment on above: Performed By: #### C BC ####[facility] Bguqpauodr[address] [place], [place] [address]DrNancy Frazier MONO # 0.7 103/ul Normal 0.3-0.8 [facility] Comment on above: Performed By: #### C BC ####[facility] Qwrmqigibi84[address] [place], [place] [address]Dr. Chrissy Frazier Monocytes/100 WBC (Bld) 7.8 % Normal 1.7-12.0 [facility] Comment on above: Performed By: #### C BC ####[facility] Cehcsqavmr[address] [place], [place] [address]Dr. Chrissy Frazier NEUT # 5.8 103/ul Normal 1.4-6.5 [facility] Comment on above: Performed By: #### C BC ####[facility] Xvynnrpkoq01[address] [place], [place] [address]Dr. Chrissy Frazier Neutrophils/100 WBC (Bld) 62.8 % Normal 43.0-75.0 [facility] Comment on above: Performed By: #### C BC ####[facility] Xowsjcucvy[address] [place], [place] [address]Dr. Chrissy Frazier Platelet mean volume (Bld) [Entitic vol] 10.8 fL Normal 9.5-13.5 [facility] Comment on above: Performed By: #### C BC ####[facility] Hwgdijyore20[address] [place], [place] [address]Dr. Chrissy Frazier PLT 310 103/ul Normal 150-450 [facility] Comment on above: Performed By: #### C BC ####[facility] Qhytbiveis0061 [place] [id number]. Chrissy Frazier RBC 5.02 106/ul Normal 4.70-6.10 [facility] Comment on above: Performed By: #### C BC ####[facility] Hifixnlsyt7582 [place], [place] [address]W[place]. Chrissy Frazier WBC 9.3 103/ul Normal 4.0-11.0 [facility] Comment on above: Performed By: #### C BC ####[facility] Tmxfupmovj3314 [place] [id number]. Tishrowan Freddie CULTURE URINEon 07-07-2022 CULTURE URINE Culture Observations: NO GROWTH. Normal [facility] Comment on above: Performed By: #### U RCX ####[facility] Kqiayepnta2329 [place] [id number]. Chrissy Frazier DRUG SCREEN RAPID (URINE)on 07-07-2022 AMP Negative Normal NEGATIVE [facility] Comment on above: Performed By: #### D RUGRPD ####[facility] Cgrjlsacsq2554 [place] [id number]. Chrissy Frazier BAR Negative Normal NEGATIVE [facility] Comment on above: Performed By: #### D RUGRPD ####[facility] Irdghzovcs7157 [place] [id number]. Chrissy Frazier BUP Negative Normal NEGATIVE [facility] Comment on above: Performed By: #### D RUGRPD ####[facility] Syaxbhrwsb0282 [place] [id number]. Chrissy Frazier BZO Positive Abnormal NEGATIVE [facility] Comment on above: Performed By: #### D RUGRPD ####[facility] Fkrzfmkkrx8108 [place] [id number]. Chrissy Frazier LAUREN Negative Normal NEGATIVE [facility] Comment on above: Performed By: #### D RUGRPD ####[facility] Sawsipguli2784 [place] [id number]. Chrissy Frazier CUT-OFFS SEE BELOW Normal [facility] Comment on above: Result Comment: [...] 300 ng/mL Performed By: #### D RUGRPD ####[facility] Cytzpwtlec[address] [place], [place] [address]Dr. [facility] DRUG CUT HEADER DRUG CLASS TEST SYSTEM CUT-OFF CONCENTRATIONS ARE FOLLOWS: Normal [facility] Comment on above: Performed By: #### D RUGRPD ####[facility] Vudycmfztz[address] [place], [place] [address]Dr. Tishrowan [facility] mAMP Negative Normal NEGATIVE [facility] Comment on above: Performed By: #### D RUGRPD ####[facility] Edfqdrirob[address] [place], [place] [address]Dr. Chrissy [facility] MTD Negative Normal NEGATIVE [facility] Comment on above: Performed By: #### D RUGRPD ####[facility] Tpjyuvuadm[address] [place], [place] [address]Dr. Chrissy [facility] OPI Negative Normal NEGATIVE [facility] Comment on above: Performed By: #### D RUGRPD ####[facility] Ttuooeqeyz[address] [place], [place] [address]Dr. Chrissy Frazier OXY Negative Normal NEGATIVE [facility] Comment on above: Performed By: #### D RUGRPD ####[facility] Ekcrvsjcxe419[address] [place], [place] [address]Dr. Chrissy [facility] PCP Negative Normal NEGATIVE [facility] Comment on above: Performed By: #### D RUGRPD ####[facility] Vajddgiepn[address] [place], [place] [address]Dr. Chrissy Freddie PPX Negative Normal NEGATIVE [facility] Comment on above: Performed By: #### D RUGRPD ####[facility] Idgxkketoh[address] [place] [address]Dr. Chrissy Freddie TCA Positive Abnormal NEGATIVE [facility] Comment on above: Performed By: #### D RUGRPD ####[facility] Eauchackge[address] [place] [address]Dr. Chrissy Freddie THC Positive Abnormal NEGATIVE [facility] Comment on above: Performed By: #### D RUGRPD ####[facility] Xlgtwikmbh9174 [place] [address]Dr. Tishrowan Frazier LIPASEon 07-07-2022 Lipase [Catalytic activity/Vol] 118.0 U/L Normal 73.0-393.0 [facility] Comment on above: Performed By: #### L IPA ####[facility] Swpnarfylj9[address] [place], [place] [address]Dr. Chrissy Frazier Lipase [Catalytic activity/Vol] 114.0 U/L Normal 73.0-393.0 [facility] Comment on above: Performed By: #### C MP, TERRENCE, BNP, LIPA ####[facility] Nxggaamyae628[address] [place], [place] [address]Dr. Chrissy Frazier PROF 14(COMP METB)on 022 Albumin [Mass/Vol] 3.4 g/dL Normal 3.4-5.0 [facility] Comment on above: Performed By: #### C MP, TERRENCE, BNP, LIPA ####[facility] Uuaitspgls20[address] [place] [address]Dr. Chrissy Frazier Albumin/Globulin [Mass ratio] 1.1 {ratio} Normal [facility] Comment on above: Performed By: #### C MP, TERRENCE, BNP, LIPA ####[facility] Uildrhcigt1672 [place] [address]Dr. Chrissy Frazier ALP [Catalytic activity/Vol] 68 U/L Normal 46-116 [facility] Comment on above: Performed By: #### C MP, TERRENCE, BNP, LIPA ####[facility] Liaelwqfel[address] [place] [address]Dr. Chrissy Frazier ALT [Catalytic activity/Vol] 93 U/L Critically high 16-63 [facility] Comment on above: Performed By: #### C MP, TERRENCE, BNP, LIPA ####[facility] Ylajuhezhq7132 [place] [address]Dr. Chrissy Frazier Anion gap [Moles/Vol] 14.4 mmol/L Normal [facility] Comment on above: Performed By: #### C MP, TERRENCE, BNP, LIPA ####[facility] Nbiuuugkzm0699 [place] [address]Dr. Chrissy Frazier AST [Catalytic activity/Vol] 33 U/L Normal 15-37 [facility] Comment on above: Performed By: #### C MP, TERRENCE, BNP, LIPA ####[facility] Yntguvbzij8904 [place] [address]Dr. Chrissy Frazier Bilirubin [Mass/Vol] 0.9 mg/dL Normal 0.2-1.0 [facility] Comment on above: Performed By: #### C MP, TERRENCE, BNP, LIPA ####[facility] Ncadedpybd9[address] [place], [place] [address]Dr. Chrissy Frazier Calcium [Mass/Vol] 8.2 mg/dL Critically low 8.5-10.1 [facility] Comment on above: Performed By: #### C MP, TERRENCE, BNP, LIPA ####[facility] Zeduscanhc825[address] [place], [place] [address]Dr. Chrissy Farzier Chloride [Moles/Vol] 103 mmol/L Normal 98-107 [facility] Comment on above: Performed By: #### C MP, TERRENCE, BNP, LIPA ####[facility] Sozcysycjw433[address] [place], [place] [address]Dr. Chrissy Frazier CO2 [Moles/Vol] 22.9 mmol/L Normal 21.0-32.0 [facility] Comment on above: Performed By: #### C MP, TERRENCE, BNP, LIPA ####[facility] Gmpecpulvt614[address] [place], [place] [address]Dr. Chrissy Frazier Creatinine [Mass/Vol] 1.07 mg/dL Normal 0.70-1.30 [facility] Comment on above: Performed By: #### C MP, TERRENCE, BNP, LIPA ####[facility] Ljeiqfkvxp9038 [place] [address]Dr. Chrissy Frazier EGFR-AF BAHAMIAN >60 Normal >=60 [facility] Comment on above: Performed By: #### C MP, TERRENCE, BNP, LIPA ####[facility] Isidtnamom8460 [place] [address]Dr. Chrissy Frazier EGFR-NON AF BAHAMIAN >60 Normal >=60 [facility] Comment on above: Performed By: #### C MP, TERRENCE, BNP, LIPA ####[facility] Lmerfrljhx9326 [place] [address]Dr. Chrissy Frazier Globulin (S) [Mass/Vol] 3.2 g/dL Normal [facility] Comment on above: Performed By: #### C MP, TERRENCE, BNP, LIPA ####[facility] Alqltjbyvb517[address] [place], [place] [address]Dr. Chrissy Frazier Glucose [Mass/Vol] 96 mg/dL Normal 74-106 [facility] Comment on above: Performed By: #### C MP, TERRENCE, BNP, LIPA ####[facility] Erfvalnaif8313 [place] [address]Dr. Chrissy Frazier Potassium [Moles/Vol] 3.3 mmol/L Critically low 3.5-5.1 [facility] Comment on above: Performed By: #### C MP, TERRENCE, BNP, LIPA ####[facility] Noanxepnnc7763 [place] [address]Dr. Chrissy Frazier Protein [Mass/Vol] 6.6 g/dL Normal 6.4-8.2 [facility] Comment on above: Performed By: #### C MP, TERRENCE, BNP, LIPA ####[facility] Tlhfkmpetp1459 [place] [address]Dr. Chrissy Frazier Sodium [Moles/Vol] 137 mmol/L Normal 136-145 [facility] Comment on above: Performed By: #### C MP, TERRENCE, BNP, LIPA ####[facility] Jpkikcjgzl4416[address] [place], [place] [address]Dr. Chrissy Frazier Urea nitrogen [Mass/Vol] 13.0 mg/dL Normal 7.0-18.0 [facility] Comment on above: Performed By: #### C MP, TERRENCE, BNP, LIPA ####[facility] Ieydkukrcf859[address] [place], [place] [address]Dr. Chrissy Frazier Urea nitrogen/Creatinine [Mass ratio] 12.1 mg/mg Normal [facility] Comment on above: Performed By: #### C MP, TERRENCE, BNP, LIPA ####[facility] Cngjiiagcd33[address] [place], [place] [address]Dr. Chrissy Frazier UA RANDOM W/MICROSCOPICon BACTERIA TRACE Abnormal NONE SEEN [facility] Comment on above: Performed By: #### U AMIC ####[facility] Ztwgivshcn399[address] [place], [place] [address]Dr. Chrissy Frazier Bilirubin Ql (U) Negative Normal NEGATIVE [facility] Comment on above: Performed By: #### U AMIC ####[facility] Lttxyouqfl8535[address] [place], [place] [address]Dr. Chrissy Frazier CAST NONE SEEN Normal NONE SEEN [facility] Comment on above: Performed By: #### U AMIC ####[facility] Vxmdjqsjcj2227[address] [place], [place] [address]Dr. Chrissy Frazier Clarity (U) CLEAR Normal CLEAR [facility] Comment on above: Performed By: #### U AMIC ####[facility] Mhcqssnwbg0416[address] [place], [place] [address]Dr. Chrissy Frazier Color (U) YELLOW Normal YELLOW [facility] Comment on above: Performed By: #### U AMIC ####[facility] Vrohrgremi199[address] [place], [place] [address]Dr. Chrissy Frazier Crystals LM Nom (Urine sed) SEEN Abnormal NONE SEEN [facility] Comment on above: Performed By: #### U AMIC ####[facility] Udtellbzfg049[address] [place], [place] [address]Dr. Chrissy Frazier Epithelial cells LM Ql (Urine sed) RARE Normal NONE SEEN /RARE [facility] Comment on above: Performed By: #### U AMIC ####[facility] Lbkaniqaae7105 [place] [address]Dr. Chrissy Frazier Glucose Ql (U) Negative Normal NEGATIVE [facility] Comment on above: Performed By: #### U AMIC ####[facility] Yzfealhyoz0840[address] [place], [place] [address]Dr. Chrissy Frazier Hemoglobin Ql (U) Negative Normal NEGATIVE [facility] Comment on above: Performed By: #### U AMIC ####[facility] Nmcpnymqmh437[address] [place], [place] [address]Dr. Chrissy Frazier Ketones Ql (U) 15 mg/dl Abnormal NEGATIVE The [facility] Comment on above: Performed By: #### U AMIC ####[facility] Dzymztjtim407[address] [place], [place] [address]Dr. Chrissy Frazier LEUKOCYTES Negative Normal NEGATIVE [facility] Comment on above: Performed By: #### U AMIC ####[facility] Anbvnqvtds508[address] [place], [place] [address]Dr. Chrissy Frazier MUCOUS NONE SEEN Normal NONE SEEN [facility] Comment on above: Performed By: #### U AMIC ####[facility] Vhurahsyhe[address] [place], [place] [address]Dr. Chrissy Frazier Nitrite Ql (U) Negative Normal NEGATIVE [facility] Comment on above: Performed By: #### U AMIC ####[facility] Vjjnvhzqnh728[address] [place], [place] [address]Dr. Chrissy Frazier pH (U) 6.0 [pH] Normal 5-9 [facility] Comment on above: Performed By: #### U AMIC ####[facility] Leuwiagvcl874[address] [place], [place] [address]Dr. Chrissy Frazier RBC 0-2 Normal 0-2 [facility] Comment on above: Performed By: #### U AMIC ####[facility] Czktxquvue02[address] [place], [place] [address]Dr. Chrissy Frazier SPEC GRAVITY 1.015 Normal 1.005-<=1.025 [facility] Comment on above: Performed By: #### U AMIC ####[facility] Wpynxogeqk8[address] [place] [address]Dr. Chrissy Frazier UA PROTEIN Negative Normal NEGATIVE/ TRACE [facility] Comment on above: Performed By: #### U AMIC ####[facility] Tsppyynizf1818 [place] [address]Dr. Chrissy Frazier URIC ACID CRYSTALS RARE Normal [facility] Comment on above: Performed By: #### U AMIC ####[facility] Zspbiqqghi2698 [place] [address]Dr. Chrissy Freddie Urobilinogen Qn (U) 0.2 {Estrellita'U}/dL Normal 0.2 - 1. 0 [facility] Comment on above: Performed By: #### U AMIC ####[facility] Ybvkpvsthv67[address] [place], [place] [address]Dr. Tishrowan Frazier WBC 0-2 Abnormal NONE SEEN [facility] Comment on above: Performed By: #### U AMIC ####[facility] Hydofxsmvu34[address] [place], [place] [address]Dr. Chrissy Freddie AMYLASEon 07-06-2022 Amylase [Catalytic activity/Vol] 37 U/L Normal 25-115 [facility] Comment on above: Performed By: #### C MP, LIPA, TERRENCE ####[facility] Ywhogovwlb678[address] [place], [place] [address]Dr. Chrissy Frazier CBC AUTO DIFFon 07-06-2022 BASO # 0.1 103/ul Normal 0.0-0.1 [facility] Comment on above: Performed By: #### C BC ####[facility] Ulocvvvuar3270[address] [place], [place] [address]Dr. Tishrowan Frazier Basophils/100 WBC (Bld) 0.4 % Normal 0.2-2.0 [facility] Comment on above: Performed By: #### C BC ####[facility] Hpmrocttom1822[address] [place], [place] [address]Dr. Chrissy Frazier EO # 0.1 103/ul Normal 0.0-0.7 [facility] Comment on above: Performed By: #### C BC ####[facility] Zkwkeaamct84[address] [place] [address]Dr. Chrissy Frazier Eosinophils/100 WBC (Bld) 0.5 % Critically low 0.9-7.0 [facility] Comment on above: Performed By: #### C BC ####[facility] Igypjwvuuj3033[address] [place], [place] [address]Dr. Chrissy Frazier Erythrocyte distribution width (RBC) [Ratio] 13.6 % Normal 11.0-15.0 [facility] Comment on above: Performed By: #### C BC ####[facility] Vsqmqqfxek0410[address] [place], [place] [address]Dr. Chrissy Frazier Hematocrit (Bld) [Volume fraction] 47.9 % Normal 42.0-54.0 [facility] Comment on above: Performed By: #### C BC ####[facility] Gdmkwezcln33[address] [place], [place] [address]Dr. Chrissy Frazier Hemoglobin (Bld) [Mass/Vol] 16.4 g/dL Normal 14.0-18.0 [facility] Comment on above: Performed By: #### C BC ####[facility] Bmpghjsvyp2764[address] [place], [place] [address]Dr. Chrissy Frazier IG # 0.09 10e3/ul Critically high 0.00-0.03 [facility] Comment on above: Performed By: #### C BC ####[facility] Pkeesixnbe907[address] [place], [place] [address]Dr. Chrissy Frazier IG % 0.6 % Critically high 0.0-0.5 [facility] Comment on above: Performed By: #### C BC ####[facility] Nmwpxwxrdx417[address] [place], [place] [address]Dr. Chrissy Frazier LYMPH # 2.5 103/ul Normal 1.2-3.8 [facility] Comment on above: Performed By: #### C BC ####[facility] Svmsuonlgt290[address] [place], [place] [address]Dr. Chrissy Frazier Lymphocytes/100 WBC (Bld) 16.7 % Critically low 20.5-60.0 [facility] Comment on above: Performed By: #### C BC ####[facility] Oubhhixjdy5140 [place] [address]DrNancy Frazier MANUAL DIFF REQ NO Normal [facility] Comment on above: Performed By: #### C BC ####[facility] Quhbgrzfea8275 [place] [address]DrNancy Frazier MCH (RBC) [Entitic mass] 28.1 pg Normal 25.9-34.0 [facility] Comment on above: Performed By: #### C BC ####[facility] Kjxbpispgr[address] [place], [place] [address]DrNancy Frazier MCHC (RBC) [Mass/Vol] 34.2 g/dL Normal 29.9-35.2 [facility] Comment on above: Performed By: #### C BC ####[facility] Fwyyyhikwo964[address] [place], [place] [address]DrNancy Frazier MCV (RBC) [Entitic vol] 82.2 fL Normal 80.0-94.0 [facility] Comment on above: Performed By: #### C BC ####[facility] Urbftafofs[address] [place], [place] [address]DrNancy Frazier MONO # 1.0 103/ul Critically high 0.3-0.8 [facility] Comment on above: Performed By: #### C BC ####[facility] Lmfumrgxzh606[address] [place], [place] [address]DrNancy Frazier Monocytes/100 WBC (Bld) 6.7 % Normal 1.7-12.0 [facility] Comment on above: Performed By: #### C BC ####[facility] Nhxpsiucza726[address] [place], [place] [address]DrNancy Frazier NEUT # 11.3 103/ul Critically high 1.4-6.5 [facility] Comment on above: Performed By: #### C BC ####[facility] Orronqoydv7464[address] [place], [place] [address]DrNancy Frazier Neutrophils/100 WBC (Bld) 75.1 % Critically high 43.0-75.0 [facility] Comment on above: Performed By: #### C BC ####[facility] Cgeypnzmfp8[address] [place] [id number]. Chrissy Frazier Platelet mean volume (Bld) [Entitic vol] 10.6 fL Normal 9.5-13.5 [facility] Comment on above: Performed By: #### C BC ####[facility] Cpedhckdyn2007 [place] [address]Dr. Chrissy Frazier PLT 416 103/ul Normal 150-450 [facility] Comment on above: Performed By: #### C BC ####[facility] Bzlryhvvku6567 [place] [address]Dr. Chrissy Frazier RBC 5.83 106/ul Normal 4.70-6.10 [facility] Comment on above: Performed By: #### C BC ####[facility] Xmfynkfnvg1331 [place] [id number]. Chrissy Frazier WBC 15.0 103/ul Critically high 4.0-11.0 [facility] Comment on above: Performed By: #### C BC ####[facility] Ysthzsrocs3037 [place] [id number]. Chrissy Frazier [facility] SARS-CoV-2 (COVID-19) RNA RHIANNON+probe Ql (Unsp spec) Not detected Normal NOT DETECTED [facility] Comment on above: Result Comment: [...] for this test is supported by the Network Development Coordinator of Health and Human Service's declaration that [...] be used). Performed By: #### C VDTBH ####[facility] Iembrtmlfa2258 [place] [address]Dr. Chrissy Frazier LIPASEon 07-06-2022 Lipase [Catalytic activity/Vol] 130.0 U/L Normal 73.0-393.0 [facility] Comment on above: Performed By: #### C OSWALD ADAIR, TERRENCE ####[facility] Yxtvbuwotb9181 [place] [address]Dr. Chrissy Frazier PROF 14(COMP METB)on 022 Albumin [Mass/Vol] 4.4 g/dL Normal 3.4-5.0 [facility] Comment on above: Performed By: #### C MANA LIPA, TERRENCE ####[facility] Hdfuhasvnx01[address] [place], [place] [address]Dr. Chrissy Frazier Albumin/Globulin [Mass ratio] 1.1 {ratio} Normal [facility] Comment on above: Performed By: #### C OSWALD ADAIR TERRENCE ####[facility] Axyjxaosfr[address] [place], [place] [address]Dr. Chrissy Frazier ALP [Catalytic activity/Vol] 83 U/L Normal 46-116 [facility] Comment on above: Performed By: #### C MANA LIPA, TERRENCE ####[facility] Lpxkgavsuy5266 [place] [address]Dr. Chrissy Frazier ALT [Catalytic activity/Vol] 107 U/L Critically high 16-63 [facility] Comment on above: Performed By: #### C TESSA ADAIRA, TERRENCE ####[facility] Gakrlozosy2620 [place] [address]Dr. Chrissy Frazier Anion gap [Moles/Vol] 20.5 mmol/L Normal [facility] Comment on above: Performed By: #### C MANA LIPA, TERRENCE ####[facility] Xdutfvwjsc59[address] [place], [place] [address]Dr. Chrissy Frazier AST [Catalytic activity/Vol] 46 U/L Critically high 15-37 [facility] Comment on above: Performed By: #### C OSWALD ADAIR, TERRENCE ####[facility] Mltcchbbix9709 [place] [address]Dr. Chrissy Frazier Bilirubin [Mass/Vol] 1.2 mg/dL Critically high 0.2-1.0 [facility] Comment on above: Performed By: #### C TESSA ADAIRA, TERRENCE ####[facility] Mqceyufonk[address] [place], [place] [address]Dr. Chrissy Frazier Calcium [Mass/Vol] 9.1 mg/dL Normal 8.5-10.1 [facility] Comment on above: Performed By: #### C MANA LIPA, TERRENCE ####[facility] Rabygfrhlu[address] [place], [place] [address]Dr. Chrissy Frazier Chloride [Moles/Vol] 100 mmol/L Normal 98-107 [facility] Comment on above: Performed By: #### C TESSA ADAIRA, TERRENCE ####[facility] Fxbwbdopgt50[address] [place], [place] [address]Dr. Chrissy Frazier CO2 [Moles/Vol] 18.6 mmol/L Critically low 21.0-32.0 [facility] Comment on above: Performed By: #### C MANA LIPA, TERRENCE ####[facility] Jjnsmtouwh1140[address] [place], [place] [address]Dr. Chrissy Frazier Creatinine [Mass/Vol] 1.44 mg/dL Critically high 0.70-1.30 [facility] Comment on above: Performed By: #### C MANA LIPA, TERRENCE ####[facility] Jlzljkeimq8[address] [place], [place] [address]Dr. Chrissy Frazier EGFR-AF BAHAMIAN >60 Normal >=60 [facility] Comment on above: Performed By: #### C MP, LIPA, TERRENCE ####[facility] Foirznsxla0970[address] [place], [place] [address]Dr. Chrissy Frazier EGFR-NON AF BAHAMIAN 57 mL/min/1.73m2 Critically low >=60 [facility] Comment on above: Performed By: #### C MANA LIPA, TERRENCE ####[facility] Hzvurhkwjm6230 [place] [address]Dr. Chrissy Frazier Globulin (S) [Mass/Vol] 4.0 g/dL Normal [facility] Comment on above: Performed By: #### C MANA LIPA, TERRENCE ####[facility] Kqpfvehqcy4478 [place] [address]Dr. Chrissy Frazier Glucose [Mass/Vol] 117 mg/dL Critically high 74-106 [facility] Comment on above: Performed By: #### C MANA LIPA, TERRENCE ####[facility] Fpttpjzsgf7264[address] [place], [place] [address]Dr. Chrissy Frazier Potassium [Moles/Vol] 3.1 mmol/L Critically low 3.5-5.1 [facility] Comment on above: Performed By: #### C MANA LIPA, TERRENCE ####[facility] Vtctffwvjv[address] [place], [place] [address]Dr. Chrissy Frazier Protein [Mass/Vol] 8.4 g/dL Critically high 6.4-8.2 [facility] Comment on above: Performed By: #### C TESSA ADAIRA, TERRENCE ####[facility] Nlpkizcqap834[address] [place], [place] [address]Dr. Chrissy Frazier Sodium [Moles/Vol] 136 mmol/L Normal 136-145 [facility] Comment on above: Performed By: #### C MANA LIPA, TERRENCE ####[facility] Icjppxlkjp0301[address] [place], [place] [address]Dr. Chrissy Frazier Urea nitrogen [Mass/Vol] 15.0 mg/dL Normal 7.0-18.0 [facility] Comment on above: Performed By: #### C MANA LIPA, TERRENCE ####[facility] Vtdifugkzg75[address] [place], [place] [address]Dr. Chrissy Frazier Urea nitrogen/Creatinine [Mass ratio] 10.4 mg/mg Normal [facility] Comment on above: Performed By: #### C MANA LIPA, TERRENCE ####[facility] Rsazxshwls2447 [place] [address]Dr. Chrissy Freddie CBC AUTO DIFFon 07-05-2022 BASO # 0.0 103/ul Normal 0.0-0.1 [facility] Comment on above: Performed By: #### C BC ####[facility] Xarjlfqrhg[address] [place], [place] [address]Dr. Chrissy Frazier Basophils/100 WBC (Bld) 0.3 % Normal 0.2-2.0 [facility] Comment on above: Performed By: #### C BC ####[facility] Haomwgqljy638[address] [place], [place] [address]Dr. Chrissy Frazier EO # 0.2 103/ul Normal 0.0-0.7 [facility] Comment on above: Performed By: #### C BC ####[facility] Evzatjxlzh[address] [place], [place] [address]Dr. Chrissy Frazier Eosinophils/100 WBC (Bld) 1.5 % Normal 0.9-7.0 [facility] Comment on above: Performed By: #### C BC ####[facility] Dkolcblcnh[address] [place], [place] [address]Dr. Tishrowan Frazier Erythrocyte distribution width (RBC) [Ratio] 13.9 % Normal 11.0-15.0 [facility] Comment on above: Performed By: #### C BC ####[facility] Czeztfzxbd[address] [place], [place] [address]Dr. Chrissy Frazier Hematocrit (Bld) [Volume fraction] 44.5 % Normal 42.0-54.0 [facility] Comment on above: Performed By: #### C BC ####[facility] Jvqmswnlnc96[address] [place], [place] [address]Dr. Chrissy Frazier Hemoglobin (Bld) [Mass/Vol] 14.8 g/dL Normal 14.0-18.0 [facility] Comment on above: Performed By: #### C BC ####[facility] Iofzjhdjqi[address] [place], [place] [address]Dr. Chrissy Frazier IG # 0.05 10e3/ul Critically high 0.00-0.03 [facility] Comment on above: Performed By: #### C BC ####[facility] Nnzaraevdk6640 [place] [id number]. Chrissy Frazier IG % 0.4 % Normal 0.0-0.5 [facility] Comment on above: Performed By: #### C BC ####[facility] Zymvabnupo8905 [place] [id number]. Chrissy Frazier LYMPH # 3.3 103/ul Normal 1.2-3.8 [facility] Comment on above: Performed By: #### C BC ####[facility] Denillaowc2618 [place] [id number]. Chrissy Frazier Lymphocytes/100 WBC (Bld) 29.1 % Normal 20.5-60.0 [facility] Comment on above: Performed By: #### C BC ####[facility] Ngijhyeavf7595 [place] [address]Dr. Chrissy Frazier MANUAL DIFF REQ NO Normal [facility] Comment on above: Performed By: #### C BC ####[facility] Hbfjpyyouy0433 [place] [id number]. Chrissy Frazier MCH (RBC) [Entitic mass] 28.2 pg Normal 25.9-34.0 [facility] Comment on above: Performed By: #### C BC ####[facility] [address]rivhqtznu[address] [place] [id number]. Chrissy Frazier MCHC (RBC) [Mass/Vol] 33.3 g/dL Normal 29.9-35.2 [facility] Comment on above: Performed By: #### C BC ####[facility] Lkfzdrfqmm6187 [place] [id number]. Chrissy Frazier MCV (RBC) [Entitic vol] 84.9 fL Normal 80.0-94.0 [facility] Comment on above: Performed By: #### C BC ####[facility] Ljpxuxohai1062 [place] [id number]. Chrissy Freddie MONO # 0.6 103/ul Normal 0.3-0.8 [facility] Comment on above: Performed By: #### C BC ####[facility] Tazkkcdnne5746 [place] [id number]. Chrissy Frazier Monocytes/100 WBC (Bld) 5.4 % Normal 1.7-12.0 [facility] Comment on above: Performed By: #### C BC ####[facility] Asjqpyzgng8762 [place] [id number]. Chrissy Frazier NEUT # 7.1 103/ul Critically high 1.4-6.5 [facility] Comment on above: Performed By: #### C BC ####[facility] Fmwgsvetxe1165 [place] [id number]. Chrissy Frazier Neutrophils/100 WBC (Bld) 63.3 % Normal 43.0-75.0 [facility] Comment on above: Performed By: #### C BC ####[facility] Wlhrqjpdgd2849 [place] [address]Dr. Chrissy Frazier Platelet mean volume (Bld) [Entitic vol] 9.9 fL Normal 9.5-13.5 [facility] Comment on above: Performed By: #### C BC ####[facility] Ahukfpmmcf88[address] [place] [address]Dr. Chrissy Freddie PLT 339 103/ul Normal 150-450 [facility] Comment on above: Performed By: #### C BC ####[facility] Haumjkoxfw8630 [place] [id number]. Tishrowan Frazier RBC 5.24 106/ul Normal 4.70-6.10 [facility] Comment on above: Performed By: #### C BC ####[facility] Hqpjfanceb0775 [place] [id number]. Chrissy Frazier WBC 11.2 103/ul Critically high 4.0-11.0 [facility] Comment on above: Performed By: #### C BC ####[facility] Onanikifzh9[address] [place] [address]Dr. Chrissy Frazier PROF 14(COMP METB)on 022 Albumin [Mass/Vol] 3.8 g/dL Normal 3.4-5.0 [facility] Comment on above: Performed By: #### C MP ####[facility] Mpzvabujgs9846 [place] [id number]. Chrissy Freddie Albumin/Globulin [Mass ratio] 1.1 {ratio} Normal [facility] Comment on above: Performed By: #### C MP ####[facility] Zmxiqbpefo0574 [place] [id number]. Chrissy Freddie ALP [Catalytic activity/Vol] 67 U/L Normal 46-116 [facility] Comment on above: Performed By: #### C MP ####[facility] Faadwjkurn0197 [place] [address]Dr. Chrissy Freddie ALT [Catalytic activity/Vol] 75 U/L Critically high 16-63 [facility] Comment on above: Performed By: #### C MP ####[facility] Cbuqursswe9910 [place] [address]Dr. Chrissy Frazier Anion gap [Moles/Vol] 14.3 mmol/L Normal [facility] Comment on above: Performed By: #### C MP ####[facility] Rjiqonllyb7193 [place] [address]Dr. Chrissy Freddie AST [Catalytic activity/Vol] 40 U/L Critically high 15-37 [facility] Comment on above: Performed By: #### C MP ####[facility] Foaqndeatq0743 [place] [address]Dr. Chrissy Frazier Bilirubin [Mass/Vol] 0.9 mg/dL Normal 0.2-1.0 [facility] Comment on above: Performed By: #### C MP ####[facility] Oyqifegsxg7728 [place] [id number]. Chrissy Frazier Calcium [Mass/Vol] 8.4 mg/dL Critically low 8.5-10.1 [facility] Comment on above: Performed By: #### C MP ####[facility] Tyznttcqpo0666 [place] [address]Dr. Chrissy Frazier Chloride [Moles/Vol] 104 mmol/L Normal 98-107 [facility] Comment on above: Performed By: #### C MP ####[facility] Tilpzdklxd6654 [place] [id number]. Chrissy Frazier CO2 [Moles/Vol] 24.1 mmol/L Normal 21.0-32.0 [facility] Comment on above: Performed By: #### C MP ####[facility] Xiblozsxeh9130 [place] [id number]. Chrissy Frazier Creatinine [Mass/Vol] 1.11 mg/dL Normal 0.70-1.30 [facility] Comment on above: Performed By: #### C MP ####[facility] Alpfctfyxg6592 [place] [id number]. Chrissy Frazier EGFR-AF BAHAMIAN >60 Normal >=60 [facility] Comment on above: Performed By: #### C MP ####[facility] Cwvoscagjo8513 [place] [address]Dr. Chrissy Frazier EGFR-NON AF BAHAMIAN >60 Normal >=60 [facility] Comment on above: Performed By: #### C MP ####[facility] Ftmjpkqmhu159[address] [place], [place] [address]Dr. Chrissy Frazier Globulin (S) [Mass/Vol] 3.6 g/dL Normal [facility] Comment on above: Performed By: #### C MP ####[facility] Zbdblvuuhm779[address] [place], [place] [address]Dr. Chrissy Frazier Glucose [Mass/Vol] 89 mg/dL Normal 74-106 [facility] Comment on above: Performed By: #### C MP ####[facility] Klikkrblbc5030 [place] [address]Dr. Chrissy Frazier Potassium [Moles/Vol] 3.4 mmol/L Critically low 3.5-5.1 [facility] Comment on above: Performed By: #### C MP ####[facility] Wqgxlajijl32[address] [place], [place] [address]Dr. Chrissy Freddie Protein [Mass/Vol] 7.4 g/dL Normal 6.4-8.2 [facility] Comment on above: Performed By: #### C MP ####[facility] Wcjtegwxwf329[address] [place], [place] [address]Dr. Chrissy Frazier Sodium [Moles/Vol] 139 mmol/L Normal 136-145 [facility] Comment on above: Performed By: #### C MP ####[facility] Ihedivhfpd13[address] [place], [place] [address]Dr. Chrissy Frazier Urea nitrogen [Mass/Vol] 10.0 mg/dL Normal 7.0-18.0 [facility] Comment on above: Performed By: #### C MP ####[facility] Wbjhazoovk411[address] [place], [place] [address]Dr. Chrissy Frazier Urea nitrogen/Creatinine [Mass ratio] 9.0 mg/mg Normal [facility] Comment on above: Performed By: #### C MP ####[facility] Tcwsbukogb94[address] [place], [place] [address]Dr. Chrissy Frazier CBC AUTO DIFFon 07-04-2022 BASO # 0.0 103/ul Normal 0.0-0.1 [facility] Comment on above: Performed By: #### C BC ####[facility] Lskdnfqdhg857[address] [place], [place] [address]Dr. Chrissy Freddie Basophils/100 WBC (Bld) 0.2 % Normal 0.2-2.0 [facility] Comment on above: Performed By: #### C BC ####[facility] Wmsopqqxpk189[address] [place], [place] [address]Dr. Chrissy Frazier EO # 0.0 103/ul Normal 0.0-0.7 [facility] Comment on above: Performed By: #### C BC ####[facility] Fmcbotzwgy212[address] [place], [place] [address]Dr. Chrissy Freddie Eosinophils/100 WBC (Bld) 0.3 % Critically low 0.9-7.0 [facility] Comment on above: Performed By: #### C BC ####[facility] Pachsxtavr92[address] [place], [place] [address]Dr. Chrissy Frazier Erythrocyte distribution width (RBC) [Ratio] 14.0 % Normal 11.0-15.0 [facility] Comment on above: Performed By: #### C BC ####[facility] Pgptnznxhl5362 [place] [address]Dr. Chrissy Frazier Hematocrit (Bld) [Volume fraction] 43.2 % Normal 42.0-54.0 [facility] Comment on above: Performed By: #### C BC ####[facility] Yzdjvjyseu3052 [place] [address]Dr. Chrissy Frazier Hemoglobin (Bld) [Mass/Vol] 14.6 g/dL Normal 14.0-18.0 [facility] Comment on above: Performed By: #### C BC ####[facility] Rtexqqqyzq1917 [place] [address]Dr. Tishrowan Freddie IG # 0.11 10e3/ul Critically high 0.00-0.03 [facility] Comment on above: Performed By: #### C BC ####[facility] Szsddwctbw4000 [place] [address]Dr. Chrissy Frazier IG % 0.8 % Critically high 0.0-0.5 [facility] Comment on above: Performed By: #### C BC ####[facility] Phnrptdhsg9960 [place] [address]Dr. Chrissy Frazier LYMPH # 2.6 103/ul Normal 1.2-3.8 [facility] Comment on above: Performed By: #### C BC ####[facility] Lsgwmipctw7935 [place] [address]Dr. Tishrowan Frazier Lymphocytes/100 WBC (Bld) 18.3 % Critically low 20.5-60.0 [facility] Comment on above: Performed By: #### C BC ####[facility] Heixjnppea0864 [place] [address]Dr. Tishrowan Frazier MANUAL DIFF REQ NO Normal [facility] Comment on above: Performed By: #### C BC ####[facility] Kdswbmromv[address] [place], [place] [address]Dr. Chrissy Frazier MCH (RBC) [Entitic mass] 28.1 pg Normal 25.9-34.0 [facility] Comment on above: Performed By: #### C BC ####[facility] Gqllhkkcxk7108 [place] [id number]. Chrissy Frazier MCHC (RBC) [Mass/Vol] 33.8 g/dL Normal 29.9-35.2 [facility] Comment on above: Performed By: #### C BC ####[facility] Skjfxubiof2859 [place] [id number]. Chrissy Frazier MCV (RBC) [Entitic vol] 83.2 fL Normal 80.0-94.0 [facility] Comment on above: Performed By: #### C BC ####[facility] Apwohubmsa1372 [place] [id number]. Chrissy Frazier MONO # 0.7 103/ul Normal 0.3-0.8 [facility] Comment on above: Performed By: #### C BC ####[facility] Nxfqiownsi9484 [place] [address]Dr. Tishrowan Frazier Monocytes/100 WBC (Bld) 5.3 % Normal 1.7-12.0 [facility] Comment on above: Performed By: #### C BC ####[facility] Pcvzvprqqg3414 [place] [id number]. Chrissy Frazier NEUT # 10.5 103/ul Critically high 1.4-6.5 [facility] Comment on above: Performed By: #### C BC ####[facility] Hrvxgxgqpt5193 [place] [id number]. Chrissy Frazier Neutrophils/100 WBC (Bld) 75.1 % Critically high 43.0-75.0 [facility] Comment on above: Performed By: #### C BC ####[facility] Kjqtlsyrcn1993 [place] [id number]. Chrissy Frazier Platelet mean volume (Bld) [Entitic vol] 10.6 fL Normal 9.5-13.5 [facility] Comment on above: Performed By: #### C BC ####[facility] Etedhwpmcw3719 [place] [id number]. Chrissy Freddie PLT 309 103/ul Normal 150-450 [facility] Comment on above: Performed By: #### C BC ####[facility] Azpdvsklhc3206 [place] [address]Dr. Chrissy Frazier RBC 5.19 106/ul Normal 4.70-6.10 [facility] Comment on above: Performed By: #### C BC ####[facility] Nfdlbjqzdv9847 [place] [address]Dr. Chrissy Frazier WBC 14.0 103/ul Critically high 4.0-11.0 [facility] Comment on above: Performed By: #### C BC ####[facility] Sfklgknrpk1838 [place] [address]Dr. Chrissy Frazier PROF 14(COMP METB)on 022 Albumin [Mass/Vol] 4.0 g/dL Normal 3.4-5.0 [facility] Comment on above: Performed By: #### C MP ####[facility] Ygquxbtfvq69[address] [place], [place] [address]Dr. Chrissy Frazier Albumin/Globulin [Mass ratio] 1.1 {ratio} Normal [facility] Comment on above: Performed By: #### C MP ####[facility] Uzyvzsaryv147[address] [place], [place] [address]Dr. Chrissy Frazier ALP [Catalytic activity/Vol] 67 U/L Normal 46-116 [facility] Comment on above: Performed By: #### C MP ####[facility] Gyukpylshw055[address] [place], [place] [address]Dr. Chrissy Frazier ALT [Catalytic activity/Vol] 40 U/L Normal 16-63 [facility] Comment on above: Performed By: #### C MP ####[facility] Xbzfoicojy0187[address] [place], [place] [address]Dr. Chrissy Frazier Anion gap [Moles/Vol] 17.7 mmol/L Normal [facility] Comment on above: Performed By: #### C MP ####[facility] Fwuvpsumlk9400[address] [place], [place] [address]Dr. Chrissy Frazier AST [Catalytic activity/Vol] 27 U/L Normal 15-37 [facility] Comment on above: Performed By: #### C MP ####[facility] Wleycmyhqv937[address] [place], [place] [address]Dr. Chrissy Frazier Bilirubin [Mass/Vol] 0.8 mg/dL Normal 0.2-1.0 [facility] Comment on above: Performed By: #### C MP ####[facility] Jdwvgynvfp9045 [place] [address]Dr. Chrissy Frazier Calcium [Mass/Vol] 8.8 mg/dL Normal 8.5-10.1 [facility] Comment on above: Performed By: #### C MP ####[facility] Uyimeluxnq5266 [place] [address]Dr. Chrissy Frazier Chloride [Moles/Vol] 105 mmol/L Normal 98-107 [facility] Comment on above: Performed By: #### C MP ####[facility] Hixcmkccry4653 [place] [address]Dr. Chrissy Frazeir CO2 [Moles/Vol] 16.5 mmol/L Critically low 21.0-32.0 [facility] Comment on above: Performed By: #### C MP ####[facility] Htkgrmmyvz38[address] [place], [place] [address]Dr. Chrissy Frazier Creatinine [Mass/Vol] 1.02 mg/dL Normal 0.70-1.30 [facility] Comment on above: Performed By: #### C MP ####[facility] Jviyccggus9625[address] [place], [place] [address]Dr. Chrissy Frazier EGFR-AF BAHAMIAN >60 Normal >=60 [facility] Comment on above: Performed By: #### C MP ####[facility] Mrqtxqojfh6653 [place] [address]Dr. Chrissy Freddie EGFR-NON AF BAHAMIAN >60 Normal >=60 [facility] Comment on above: Performed By: #### C MP ####[facility] Lfmtqlfkdd115[address] [place], [place] [address]Dr. Tishrowan Freddie Globulin (S) [Mass/Vol] 3.7 g/dL Normal [facility] Comment on above: Performed By: #### C MP ####[facility] Adutnjwfbg3456 [place] [address]Dr. Tishrowan Frazier Glucose [Mass/Vol] 106 mg/dL Normal 74-106 [facility] Comment on above: Performed By: #### C MP ####[facility] Tstdhdkmyi2311 [place] [address]Dr. Chrissy Freddie Potassium [Moles/Vol] 3.2 mmol/L Critically low 3.5-5.1 [facility] Comment on above: Performed By: #### C MP ####[facility] Bclybehmao[address] [place], [place] [address]Dr. Chrissy Freddie Protein [Mass/Vol] 7.7 g/dL Normal 6.4-8.2 [facility] Comment on above: Performed By: #### C MP ####[facility] Harkvuogcu524[address] [place], [place] [address]Dr. Chrissy Frazier Sodium [Moles/Vol] 136 mmol/L Normal 136-145 [facility] Comment on above: Performed By: #### C MP ####[facility] Avuswmmwrc99[address] [place], [place] [address]Dr. Chrissy Freddie Urea nitrogen [Mass/Vol] 10.0 mg/dL Normal 7.0-18.0 [facility] Comment on above: Performed By: #### C MP ####[facility] Fcwhtfaeoy[address] [place], [place] [address]Dr. Tishrowan Freddie Urea nitrogen/Creatinine [Mass ratio] 9.8 mg/mg Normal [facility] Comment on above: Performed By: #### C MP ####[facility] Rrlqjwsnxk8[address] [place], [place] [address]Dr. Chrissy Freddie CBC AUTO DIFFon 07-03-2022 BASO # 0.1 103/ul Normal 0.0-0.1 [facility] Comment on above: Performed By: #### C BC ####[facility] Lhgohlurun[address] [place], [place] [address]Dr. Chrissy Frazier Basophils/100 WBC (Bld) 0.5 % Normal 0.2-2.0 [facility] Comment on above: Performed By: #### C BC ####[facility] Vwrinrbnzr645[address] [place], [place] [address]Dr. Chrissy Frazier EO # 0.1 103/ul Normal 0.0-0.7 [facility] Comment on above: Performed By: #### C BC ####[facility] Ramviadydn5783 [place] [address]Dr. Chrissy Frazier Eosinophils/100 WBC (Bld) 1.3 % Normal 0.9-7.0 [facility] Comment on above: Performed By: #### C BC ####[facility] Snpyrjpoqt3363 [place] [address]Dr. Chrissy Frazier Erythrocyte distribution width (RBC) [Ratio] 14.2 % Normal 11.0-15.0 [facility] Comment on above: Performed By: #### C BC ####[facility] Bafdngmuvx670[address] [place], [place] [address]Dr. Chrissy Frazier Hematocrit (Bld) [Volume fraction] 41.7 % Critically low 42.0-54.0 [facility] Comment on above: Performed By: #### C BC ####[facility] Jrmdkielwt[address] [place], [place] [address]Dr. Chrissy Frazier Hemoglobin (Bld) [Mass/Vol] 13.6 g/dL Critically low 14.0-18.0 [facility] Comment on above: Performed By: #### C BC ####[facility] Iomhjauiqc32[address] [place], [place] [address]Dr. Chrissy Frazier IG # 0.04 10e3/ul Critically high 0.00-0.03 [facility] Comment on above: Performed By: #### C BC ####[facility] Uvdptonirq1621 [place] [address]Dr. Chrissy Frazier IG % 0.4 % Normal 0.0-0.5 [facility] Comment on above: Performed By: #### C BC ####[facility] Rmdcfcfigq[address] [place], [place] [address]Dr. Chrissy Frazier LYMPH # 3.5 103/ul Normal 1.2-3.8 [facility] Comment on above: Performed By: #### C BC ####[facility] Jlyehefsmj6[address] [place], [place] [address]Dr. Chrissy Frazier Lymphocytes/100 WBC (Bld) 33.5 % Normal 20.5-60.0 [facility] Comment on above: Performed By: #### C BC ####[facility] Iapkfzauii8650 [place] [address]Dr. Chrissy Frazier MANUAL DIFF REQ NO Normal [facility] Comment on above: Performed By: #### C BC ####[facility] Qhxczoznoq8644 [place] [address]Dr. Chrissy Frazier MCH (RBC) [Entitic mass] 27.9 pg Normal 25.9-34.0 [facility] Comment on above: Performed By: #### C BC ####[facility] Nxadkxztaj4735 [place] [address]Dr. Chrissy Frazier MCHC (RBC) [Mass/Vol] 32.6 g/dL Normal 29.9-35.2 [facility] Comment on above: Performed By: #### C BC ####[facility] Dvbkaipmub6621 [place] [address]Dr. Chrissy Frazier MCV (RBC) [Entitic vol] 85.6 fL Normal 80.0-94.0 [facility] Comment on above: Performed By: #### C BC ####[facility] Owhozmxjqw8139 [place] [address]Dr. Chrissy Frazier MONO # 0.7 103/ul Normal 0.3-0.8 [facility] Comment on above: Performed By: #### C BC ####[facility] Rzgfsxirno9756 [place] [address]Dr. Chrissy Frazier Monocytes/100 WBC (Bld) 6.5 % Normal 1.7-12.0 [facility] Comment on above: Performed By: #### C BC ####[facility] Bipujnhrzs0116 [place] [address]DrNancy Frazier NEUT # 6.1 103/ul Normal 1.4-6.5 [facility] Comment on above: Performed By: #### C BC ####[facility] Inziyyzgrl056[address] [place], [place] [address]Dr. Chrissy Frazier Neutrophils/100 WBC (Bld) 57.8 % Normal 43.0-75.0 [facility] Comment on above: Performed By: #### C BC ####[facility] Petpdpzpft6046 [place] [address]Dr. Tishrowan Freddie Platelet mean volume (Bld) [Entitic vol] 10.4 fL Normal 9.5-13.5 [facility] Comment on above: Performed By: #### C BC ####[facility] Hxftwuatdy3253 [place] [address]DrNancy Frazier PLT 288 103/ul Normal 150-450 [facility] Comment on above: Performed By: #### C BC ####[facility] Uucmuftjqy6754 [place] [address]DrNancy Frazier RBC 4.87 106/ul Normal 4.70-6.10 [facility] Comment on above: Performed By: #### C BC ####[facility] Psovhsozre38[address] [place], [place] [address]DrNancy Frazier WBC 10.5 103/ul Normal 4.0-11.0 [facility] Comment on above: Performed By: #### C BC ####[facility] Sqgsjvbomz14[address] [place], [place] [address]DrNancy Frazier PROF 14(COMP METB)on 022 Albumin [Mass/Vol] 3.6 g/dL Normal 3.4-5.0 [facility] Comment on above: Performed By: #### C MP ####[facility] Amjhvrjezo7793 [place] [address]DrNancy Frazier Albumin/Globulin [Mass ratio] 1.1 {ratio} Normal [facility] Comment on above: Performed By: #### C MP ####[facility] Lqkurlgrks4611 [place] [address]DrNancy Frazier ALP [Catalytic activity/Vol] 58 U/L Normal 46-116 [facility] Comment on above: Performed By: #### C MP ####[facility] Dhqgqnbgoa9[address] [place], [place] [address]Dr. Yirowan Frazier ALT [Catalytic activity/Vol] 30 U/L Normal 16-63 [facility] Comment on above: Performed By: #### C MP ####[facility] Aroeiwabre9402 [place] [address]Dr. Tishrowan Freddie Anion gap [Moles/Vol] 14.5 mmol/L Normal [facility] Comment on above: Performed By: #### C MP ####[facility] Xlgtcgboqh7600[address] [place], [place] [address]Dr. Chrissy Freddie AST [Catalytic activity/Vol] 17 U/L Normal 15-37 [facility] Comment on above: Performed By: #### C MP ####[facility] Rcejzfwzzu[address] [place], [place] [address]Dr. Chrissy Frazier Bilirubin [Mass/Vol] 0.6 mg/dL Normal 0.2-1.0 [facility] Comment on above: Performed By: #### C MP ####[facility] Oyymjzgkik[address] [place], [place] [address]Dr. Chrissy Frazier Calcium [Mass/Vol] 8.4 mg/dL Critically low 8.5-10.1 [facility] Comment on above: Performed By: #### C MP ####[facility] Gkxzutbtzh232[address] [place], [place] [address]Dr. Chrissy Frazier Chloride [Moles/Vol] 106 mmol/L Normal 98-107 [facility] Comment on above: Performed By: #### C MP ####[facility] Yzouqoakpj[address] [place], [place] [address]Dr. Chrissy Frazier CO2 [Moles/Vol] 22.6 mmol/L Normal 21.0-32.0 [facility] Comment on above: Performed By: #### C MP ####[facility] Lslomvxgwn[address] [place], [place] [address]Dr. Chrissy Frazier Creatinine [Mass/Vol] 1.08 mg/dL Normal 0.70-1.30 [facility] Comment on above: Performed By: #### C MP ####[facility] Pfubuyiiew[address] [place], [place] [address]Dr. Chrissy Frazier EGFR-AF BAHAMIAN >60 Normal >=60 [facility] Comment on above: Performed By: #### C MP ####[facility] Zgkvuiwlrq3997 [place], [place] [address]Qr. Chrissy Frazier EGFR-NON AF BAHAMIAN >60 Normal >=60 [facility] Comment on above: Performed By: #### C MP ####[facility] Rhguzwtrjj5187 [place], [place] [address]Yw. Chrissy Frazier Globulin (S) [Mass/Vol] 3.3 g/dL Normal [facility] Comment on above: Performed By: #### C MP ####[facility] Cnafhltnfa1483 [place] [id number]. Chrissy Frazier Glucose [Mass/Vol] 94 mg/dL Normal 74-106 [facility] Comment on above: Performed By: #### C MP ####[facility] Cjmzhotrwf0506 [place] [id number]. Chrissy Frazier Potassium [Moles/Vol] 3.1 mmol/L Critically low 3.5-5.1 [facility] Comment on above: Performed By: #### C MP ####[facility] Fcvozqfalb4836 [place] [id number]. Chrissy Frazier Protein [Mass/Vol] 6.9 g/dL Normal 6.4-8.2 [facility] Comment on above: Performed By: #### C MP ####[facility] Iymncorgsd9136 [place] [id number]. Chrissy Frazier Sodium [Moles/Vol] 140 mmol/L Normal 136-145 [facility] Comment on above: Performed By: #### C MP ####[facility] Omyoaoavru6431 [place] [id number]. Chrissy Frazier Urea nitrogen [Mass/Vol] 10.0 mg/dL Normal 7.0-18.0 [facility] Comment on above: Performed By: #### C MP ####[facility] Ctgsmlssda7763 [place] [id number]. Chrissy Frazier Urea nitrogen/Creatinine [Mass ratio] 9.3 mg/mg Normal [facility] Comment on above: Performed By: #### C MP ####[facility] Thyhbxdshw99[address] [place], [place] [address]Dr. Chrissy Frazier CBC AUTO DIFFon 07-02-2022 BASO # 0.0 103/ul Normal 0.0-0.1 [facility] Comment on above: Performed By: #### C BC ####[facility] Nvfuofaryv69[address] [place], [place] [address]Dr. Chrissy Frazier Basophils/100 WBC (Bld) 0.2 % Normal 0.2-2.0 [facility] Comment on above: Performed By: #### C BC ####[facility] Exdtqpylkf18[address] [place], [place] [address]Dr. Chrissy Frazier EO # 0.0 103/ul Normal 0.0-0.7 [facility] Comment on above: Performed By: #### C BC ####[facility] Snpztmyvif684[address] [place], [place] [address]Dr. Chrissy Frazier Eosinophils/100 WBC (Bld) 0.0 % Critically low 0.9-7.0 [facility] Comment on above: Performed By: #### C BC ####[facility] Pnufacxdaj526[address] [place], [place] [address]Dr. Chrissy Frazier Erythrocyte distribution width (RBC) [Ratio] 14.2 % Normal 11.0-15.0 [facility] Comment on above: Performed By: #### C BC ####[facility] Btfqvoqzjg266[address] [place], [place] [address]Dr. Chrissy Frazier Hematocrit (Bld) [Volume fraction] 46.2 % Normal 42.0-54.0 [facility] Comment on above: Performed By: #### C BC ####[facility] Ymuksdzsko22[address] [place], [place] [address]Dr. Chrissy Frazier Hemoglobin (Bld) [Mass/Vol] 15.2 g/dL Normal 14.0-18.0 [facility] Comment on above: Performed By: #### C BC ####[facility] Sbciuciegw378[address] [place], [place] [address]Dr. Chrissy Frazier IG # 0.07 10e3/ul Critically high 0.00-0.03 [facility] Comment on above: Performed By: #### C BC ####[facility] Cugsicfigm[address] [place] [id number] Chrissy Freddie IG % 0.4 % Normal 0.0-0.5 [facility] Comment on above: Performed By: #### C BC ####[facility] Bwnlpwawon[address] [place] [address]DrNancy Chrissy Freddie LYMPH # 2.8 103/ul Normal 1.2-3.8 [facility] Comment on above: Performed By: #### C BC ####[facility] Ahwcazyppy[address] [place], [place] [address]DrNancy Chrissy Freddie Lymphocytes/100 WBC (Bld) 16.7 % Critically low 20.5-60.0 [facility] Comment on above: Performed By: #### C BC ####[facility] Zrgvuagiib0317[address] [place], [place] [address]DrNancy Chrissy Freddie MANUAL DIFF REQ NO Normal [facility] Comment on above: Performed By: #### C BC ####[facility] Ccjfbptrqe2695[address] [place], [place] [address]DrNancy Chrissy Freddie MCH (RBC) [Entitic mass] 28.3 pg Normal 25.9-34.0 [facility] Comment on above: Performed By: #### C BC ####[facility] Eddejelhjt21[address] [place] [address]DrNancy Chrissy Freddie MCHC (RBC) [Mass/Vol] 32.9 g/dL Normal 29.9-35.2 [facility] Comment on above: Performed By: #### C BC ####[facility] Qejwkhqkae65[address] [place], [place] [address]DrNancy Winstonrowan Freddie MCV (RBC) [Entitic vol] 86.0 fL Normal 80.0-94.0 [facility] Comment on above: Performed By: #### C BC ####[facility] Suuxskluho4048[address] [place], [place] [address]DrNancy Frazier MONO # 0.9 103/ul Critically high 0.3-0.8 [facility] Comment on above: Performed By: #### C BC ####[facility] Wwirjspqhg[address] [place] [id number]. Chrissy Frazier Monocytes/100 WBC (Bld) 5.1 % Normal 1.7-12.0 [facility] Comment on above: Performed By: #### C BC ####[facility] Twtmxniabv7[address] [place] [id number]. Chrissy Frazier NEUT # 13.2 103/ul Critically high 1.4-6.5 [facility] Comment on above: Performed By: #### C BC ####[facility] Tpispiidit16[address] [place] [address]Dr. Chrissy Frazier Neutrophils/100 WBC (Bld) 77.6 % Critically high 43.0-75.0 [facility] Comment on above: Performed By: #### C BC ####[facility] Uxdlzhlyuo5320[address] [place], [place] [address]Dr. Chrissy Frazier Platelet mean volume (Bld) [Entitic vol] 11.6 fL Normal 9.5-13.5 [facility] Comment on above: Performed By: #### C BC ####[facility] Jaxkfrqqio01[address] [place] [address]Dr. Chrissy Frazier PLT 317 103/ul Normal 150-450 [facility] Comment on above: Performed By: #### C BC ####[facility] Mmfebfsojl8[address] [place], [place] [address]Dr. Chrissy Frazier RBC 5.37 106/ul Normal 4.70-6.10 [facility] Comment on above: Performed By: #### C BC ####[facility] Oumsxcxrhk033[address] [place] [id number]. Chrissy Frazier WBC 17.1 103/ul Critically high 4.0-11.0 [facility] Comment on above: Performed By: #### C BC ####[facility] Rfzhzpgfnj0364 [place] [id number]. Chrissy Frazier CT ABD/PELV W MARGOTHon 07-02-[address] ABD/PELV W CON Normal [facility] H PYLORI ANTIBODY IGGon 06-21 H. PYLORI IGG ABS 0.13 Index Value Normal 0.00-0.79 [facility] Comment on above: Result Comment: Nega tive <0.80 Equivocal 0.80 - 0.89 Positive >0.89 Performed By: #### H PYLLC ####[facility] Hvujmrgovr[address] [place] [address]Dr. Chrissy Frazier PROF 14(COMP METB)on 022 Albumin [Mass/Vol] 3.8 g/dL Normal 3.4-5.0 [facility] Comment on above: Performed By: #### C MP ####[facility] Ixsvvyntsk9[address] [place], [place] [address]Dr. Chrissy Frazier Albumin/Globulin [Mass ratio] 1.0 {ratio} Normal [facility] Comment on above: Performed By: #### C MP ####[facility] Zyqbhjwaec424[address] [place], [place] [address]Dr. Chrissy Frazier ALP [Catalytic activity/Vol] 68 U/L Normal 46-116 [facility] Comment on above: Performed By: #### C MP ####[facility] Ftvgyokhtj3524[address] [place], [place] [address]Dr. Chrissy Frazier ALT [Catalytic activity/Vol] 34 U/L Normal 16-63 [facility] Comment on above: Performed By: #### C MP ####[facility] Eyhbgqukus301[address] [place], [place] [address]Dr. Chrissy Frazier Anion gap [Moles/Vol] 17.9 mmol/L Normal [facility] Comment on above: Performed By: #### C MP ####[facility] Msueywzbln0748[address] [place], [place] [address]Dr. Chrissy Frazier AST [Catalytic activity/Vol] 24 U/L Normal 15-37 [facility] Comment on above: Performed By: #### C MP ####[facility] Ttmqoqtwro4450[address] [place], [place] [address]Dr. Chrissy Frazier Bilirubin [Mass/Vol] 0.6 mg/dL Normal 0.2-1.0 [facility] Comment on above: Performed By: #### C MP ####[facility] Nsabxkppsf299[address] [place] [address]Dr. Chrissy Frazier Calcium [Mass/Vol] 8.8 mg/dL Normal 8.5-10.1 [facility] Comment on above: Performed By: #### C MP ####[facility] Ceqwnobhlj4352 [place] [address]Dr. Chrissy Frazier Chloride [Moles/Vol] 105 mmol/L Normal 98-107 [facility] Comment on above: Performed By: #### C MP ####[facility] Bdjebwofap136[address] [place], [place] [address]Dr. Chrissy Frazier CO2 [Moles/Vol] 18.8 mmol/L Critically low 21.0-32.0 [facility] Comment on above: Performed By: #### C MP ####[facility] Kqhouydpiv7760[address] [place], [place] [address]Dr. Chrissy Frazier Creatinine [Mass/Vol] 1.15 mg/dL Normal 0.70-1.30 [facility] Comment on above: Performed By: #### C MP ####[facility] Sygcmfnjbf7730[address] [place], [place] [address]Dr. Chrissy Frazier EGFR-AF BAHAMIAN >60 Normal >=60 [facility] Comment on above: Performed By: #### C MP ####[facility] Qeguqltqms289[address] [place], [place] [address]Dr. Chrissy Freddie EGFR-NON AF BAHAMIAN >60 Normal >=60 [facility] Comment on above: Performed By: #### C MP ####[facility] Pcxvdemsqz039[address] [place], [place] [address]Dr. Chrissy Freddie Globulin (S) [Mass/Vol] 3.9 g/dL Normal [facility] Comment on above: Performed By: #### C MP ####[facility] Apnnvixsar1233[address] [place], [place] [address]Dr. Chrissy Frazier Glucose [Mass/Vol] 124 mg/dL Critically high 74-106 [facility] Comment on above: Performed By: #### C MP ####[facility] Kqbhbzlzor70[address] [place] [address]Dr. Chrissy Frazier Potassium [Moles/Vol] 3.7 mmol/L Normal 3.5-5.1 [facility] Comment on above: Performed By: #### C MP ####[facility] Pxusqvhfmt8603 [place] [address]Dr. Chrissy Freddie Protein [Mass/Vol] 7.7 g/dL Normal 6.4-8.2 [facility] Comment on above: Performed By: #### C MP ####[facility] Xadoimprle5201[address] [place], [place] [address]Dr. Tishrowan Frazier Sodium [Moles/Vol] 138 mmol/L Normal 136-145 [facility] Comment on above: Performed By: #### C MP ####[facility] Eqbkdfnomo3615[address] [place], [place] [address]Dr. Tishrowan Frazier Urea nitrogen [Mass/Vol] 9.0 mg/dL Normal 7.0-18.0 [facility] Comment on above: Performed By: #### C MP ####[facility] Xtdumyajyi814[address] [place], [place] [address]Dr. Chrissy Freddie Urea nitrogen/Creatinine [Mass ratio] 7.8 mg/mg Normal [facility] Comment on above: Performed By: #### C MP ####[facility] Svglbldmho526[address] [place], [place] [address]Dr. Chrissy Freddie AMMONIAon 07-01-2022 Ammonia (P) [Moles/Vol] 14 umol/L Normal 11-32 [facility] Comment on above: Performed By: #### A MM ####[facility] Tebcrbvhai4768[address] [place], [place] [address]Dr. Tishrowan Frazier AMYLASEon 07-01-2022 Amylase [Catalytic activity/Vol] 32 U/L Normal 25-115 [facility] Comment on above: Performed By: #### A MY, PHOS, CMP, LIPA ####[facility] Hfqulndcwt[address] [place] [address]Dr. Tishrowan Frazier CBC AUTO DIFFon 07-01-2022 BASO # 0.1 103/ul Normal 0.0-0.1 [facility] Comment on above: Performed By: #### C BC ####[facility] Zxhoyldcjb2618 [place] [address]Dr. Chrissy Frazier Basophils/100 WBC (Bld) 0.4 % Normal 0.2-2.0 [facility] Comment on above: Performed By: #### C BC ####[facility] Ejmrnmdmgr29[address] [place], [place] [address]Dr. Chrissy Frazier EO # 0.2 103/ul Normal 0.0-0.7 [facility] Comment on above: Performed By: #### C BC ####[facility] Xdrfuaatvk9[address] [place], [place] [address]Dr. Tishrowan Freddie Eosinophils/100 WBC (Bld) 0.9 % Normal 0.9-7.0 [facility] Comment on above: Performed By: #### C BC ####[facility] Xivmqtdftk8617[address] [place], [place] [address]Dr. Chrissy Frazier Erythrocyte distribution width (RBC) [Ratio] 13.8 % Normal 11.0-15.0 [facility] Comment on above: Performed By: #### C BC ####[facility] Irtbbfoczv395[address] [place], [place] [address]Dr. Tishrowan Frazier Hematocrit (Bld) [Volume fraction] 46.3 % Normal 42.0-54.0 [facility] Comment on above: Performed By: #### C BC ####[facility] Yhehcbbhhh9516[address] [place], [place] [address]Dr. Tishrowan Frazier Hemoglobin (Bld) [Mass/Vol] 15.4 g/dL Normal 14.0-18.0 [facility] Comment on above: Performed By: #### C BC ####[facility] Mqdwpdcoub76[address] [place], [place] [address]Dr. Chrissy Frazier IG # 0.05 10e3/ul Critically high 0.00-0.03 [facility] Comment on above: Performed By: #### C BC ####[facility] Jwmmqzcufl79[address] [place] [address]Dr. Chrissy Frazier IG % 0.3 % Normal 0.0-0.5 [facility] Comment on above: Performed By: #### C BC ####[facility] Slboheqjwk[address] [place], [place] [address]Dr. Chrissy Frazier LYMPH # 2.0 103/ul Normal 1.2-3.8 [facility] Comment on above: Performed By: #### C BC ####[facility] Pucljkpiuu[address] [place], [place] [address]Dr. Chrissy Frazier Lymphocytes/100 WBC (Bld) 12.9 % Critically low 20.5-60.0 [facility] Comment on above: Performed By: #### C BC ####[facility] Krzvolpkrb10[address] [place], [place] [address]DrNancy Frazier MANUAL DIFF REQ NO Normal [facility] Comment on above: Performed By: #### C BC ####[facility] Ibrnjkjaat6737[address] [place], [place] [address]Dr. Tishrowan Frazier MCH (RBC) [Entitic mass] 28.6 pg Normal 25.9-34.0 [facility] Comment on above: Performed By: #### C BC ####[facility] Wmddjwzujq[address] [place], [place] [address]Dr. Chrissy Freddie MCHC (RBC) [Mass/Vol] 33.3 g/dL Normal 29.9-35.2 [facility] Comment on above: Performed By: #### C BC ####[facility] Vynuvwugkf[address] [place], [place] [address]DrNancy Frazier MCV (RBC) [Entitic vol] 86.1 fL Normal 80.0-94.0 [facility] Comment on above: Performed By: #### C BC ####[facility] Jxulnufkaf49[address] [place], [place] [address]DrNancy Frazier MONO # 0.5 103/ul Normal 0.3-0.8 [facility] Comment on above: Performed By: #### C BC ####[facility] Hucocfnbgl074[address] [place], [place] [address]Dr. Chrissy Frazier Monocytes/100 WBC (Bld) 3.0 % Normal 1.7-12.0 [facility] Comment on above: Performed By: #### C BC ####[facility] Fcsiefatma[address] [place] [address]Dr. Chrissy Frazier NEUT # 13.0 103/ul Critically high 1.4-6.5 [facility] Comment on above: Performed By: #### C BC ####[facility] Xvufqhojxr6944 [place] [address]Dr. Chrissy Frazier Neutrophils/100 WBC (Bld) 82.5 % Critically high 43.0-75.0 [facility] Comment on above: Performed By: #### C BC ####[facility] Oalpxnbzzj[address] [place], [place] [address]Dr. Chrissy Frazier Platelet mean volume (Bld) [Entitic vol] 10.0 fL Normal 9.5-13.5 [facility] Comment on above: Performed By: #### C BC ####[facility] Ilgmyohyyh9927[address] [place], [place] [address]Dr. Chrissy Frazier PLT 370 103/ul Normal 150-450 [facility] Comment on above: Performed By: #### C BC ####[facility] Ysdujxgtjv[address] [place], [place] [address]Dr. Chrissy Frazier RBC 5.38 106/ul Normal 4.70-6.10 [facility] Comment on above: Performed By: #### C BC ####[facility] Jvaiaotgxu18[address] [place], [place] [address]Dr. Chrissy Frazier WBC 15.8 103/ul Critically high 4.0-11.0 [facility] Comment on above: Performed By: #### C BC ####[facility] Ktrdhmoabc35[address] [place] [address]Dr. Chrissy Frazier CULTURE URINEon 07-01-2022 CULTURE URINE Culture Observations: No growth Normal [facility] Comment on above: Performed By: #### U RCX ####[facility] Ednmflgzxc817[address] [place], [place] [address]Dr. Chrissy Frazier Covid-19 PCR (CVDTB)on 06-21 SARS-CoV-2 (COVID-19) RNA RHIANNON+probe Ql (Unsp spec) Not detected Normal NOT DETECTED [facility] Comment on above: Result Comment: [...] for this test is supported by the Network Development Coordinator of Health and Human Service's declaration that [...] be used). Performed By: #### C VDTBH ####[facility] Lcsdjyjxxv7474 [place] [address]Dr. Chrissy Freddie DRUG SCREEN RAPID (URINE)on 07-01-2022 AMP Negative Normal NEGATIVE [facility] Comment on above: Performed By: #### D REYES UAMIC ####[facility] Qhsxdohrnf4[address] [place] [id number]. Chrissy Frazier BAR Negative Normal NEGATIVE [facility] Comment on above: Performed By: #### D CHAYAD, UAMIC ####[facility] Xdebtnhswt7535 [place] [id number]. Chrissy Frazier BUP Negative Normal NEGATIVE [facility] Comment on above: Performed By: #### D REYES UAMIC ####[facility] Sapexvgbxm5235 [place] [id number]. Tishrowan Frazier BZO Negative Normal NEGATIVE [facility] Comment on above: Performed By: #### D REYES UAMIC ####[facility] Irghqecrny5227 [place] [id number]. Chrissy Frazier LAUREN Negative Normal NEGATIVE [facility] Comment on above: Performed By: #### Amelie CHAMBERS UAMIC ####[facility] Wzeoroglmf96[address] [place], [place] [address]Dr. Chrissy Frazier CUT-OFFS SEE BELOW Normal [facility] Comment on above: Result Comment: [...] ng/mL Performed By: #### Amelie CHAMBERS UAMIC ####[facility] Qkenpdarsu1640[address] [place], [place] [address]Dr. Chrissy Frazier DRUG CUT HEADER DRUG CLASS TEST SYSTEM CUT-OFF CONCENTRATIONS ARE FOLLOWS: Normal [facility] Comment on above: Performed By: #### Amelie CHAMBERS UAMIC ####[facility] Dkzcsxifnz92[address] [place], [place] [address]Dr. Chrissy Frazier mAMP Negative Normal NEGATIVE [facility] Comment on above: Performed By: #### Amelie CHAMBERS UAMIC ####[facility] Vhkxkxfwgp25[address] [place], [place] [address]Dr. Chrissy Frazier MTD Negative Normal NEGATIVE [facility] Comment on above: Performed By: #### Amelie CHAMBERS UAMIC ####[facility] Gpyfkxhhme[address] [place], [place] [address]Dr. Chrissy Frazier OPI Negative Normal NEGATIVE [facility] Comment on above: Performed By: #### Amelie CHAMBERS UAMIC ####[facility] Vutdoerljj87[address] [place], [place] [address]Dr. Chrissy Frazier OXY Negative Normal NEGATIVE [facility] Comment on above: Performed By: #### D REYES, UAMIC ####[facility] Rfjkqhktns24[address] [place] [address]Dr. Chrissy Frazier PCP Negative Normal NEGATIVE [facility] Comment on above: Performed By: #### D REYES, UAMIC ####[facility] Yjyynesyfq6280 [place] [address]Dr. Chrissy Frazier PPX Negative Normal NEGATIVE [facility] Comment on above: Performed By: #### D REYES, UAMIC ####[facility] Dkcyhfgguq5780 [place] [address]Dr. Chrissy Frazier TCA Negative Normal NEGATIVE [facility] Comment on above: Performed By: #### D REYES UAMIC ####[facility] Atrftjvuzq[address] [place], [place] [address]Dr. Chrissy Frazier THC Positive Abnormal NEGATIVE [facility] Comment on above: Performed By: #### D REYES UAMIC ####[facility] Npogelkygb156[address] [place], [place] [address]Dr. Chrissy Frazier LACTATE/LACTIC ACIDon 2021 Lactate [Moles/Vol] 4.4 mmol/L Critically high 0.4-1.9 [facility] Comment on above: Performed By: #### L ACT ####[facility] Vgpqktzasn[address] [place], [place] [address]Dr. Chrissy Frazier LIPASEon 07-01-2022 Lipase [Catalytic activity/Vol] 57.0 U/L Critically low 73.0-393.0 [facility] Comment on above: Performed By: #### A MY, PHOS, CMP, LIPA ####[facility] Iroikvdbze76[address] [place], [place] [address]Dr. Chrissy Frazier PHOSPHORUSon 07-01-2022 Phosphate [Mass/Vol] 1.4 mg/dL Critically low 2.6-4.7 [facility] Comment on above: Performed By: #### A MY, PHOS, CMP, LIPA ####[facility] Xdcyxisrha[address] [place], [place] [address]Dr. Chrissy Frazier PROF 14(COMP METB)on 022 Albumin [Mass/Vol] 4.2 g/dL Normal 3.4-5.0 [facility] Comment on above: Performed By: #### A MY, PHOS, CMP, LIPA ####[facility] Uhwckasxuy34[address] [place] [address]Dr. Chrissy Frazier Albumin/Globulin [Mass ratio] 1.1 {ratio} Normal [facility] Comment on above: Performed By: #### A MY, PHOS, CMP, LIPA ####[facility] Lrvizigkmn16[address] [place] [address]Dr. Chrissy Frazier ALP [Catalytic activity/Vol] 73 U/L Normal 46-116 [facility] Comment on above: Performed By: #### A MY, PHOS, CMP, LIPA ####[facility] Spbvlpgkxb9880 [place] [address]Dr. Chrissy Frazier ALT [Catalytic activity/Vol] 43 U/L Normal 16-63 [facility] Comment on above: Performed By: #### A MY, PHOS, CMP, LIPA ####[facility] Ilcdeigzcj43[address] [place] [address]Dr. Chrissy Frazier Anion gap [Moles/Vol] 19.0 mmol/L Normal [facility] Comment on above: Performed By: #### A MY, PHOS, CMP, LIPA ####[facility] Tchdqkllzs25[address] [place] [address]Dr. Chrissy Frazier AST [Catalytic activity/Vol] 21 U/L Normal 15-37 [facility] Comment on above: Performed By: #### A MY, PHOS, CMP, LIPA ####[facility] Qgnrzxgazu3326 [place] [address]Dr. Chrissy Frazier Bilirubin [Mass/Vol] 0.5 mg/dL Normal 0.2-1.0 [facility] Comment on above: Performed By: #### A MY, PHOS, CMP, LIPA ####[facility] Jnihyonahv4[address] [place] [address]Dr. Chrissy Frazier Calcium [Mass/Vol] 9.3 mg/dL Normal 8.5-10.1 [facility] Comment on above: Performed By: #### A MY, PHOS, CMP, LIPA ####[facility] Fnihqzruxm1507 [place] [address]Dr. Chrissy Frazier Chloride [Moles/Vol] 103 mmol/L Normal 98-107 [facility] Comment on above: Performed By: #### A MY, PHOS, CMP, LIPA ####[facility] Sbvxcrxtxk0439 [place] [address]Dr. Chrissy Frazier CO2 [Moles/Vol] 21.1 mmol/L Normal 21.0-32.0 [facility] Comment on above: Performed By: #### A MY, PHOS, CMP, LIPA ####[facility] Memarvbnkh[address] [place], [place] [address]Dr. Chrissy Frazier Creatinine [Mass/Vol] 1.44 mg/dL Critically high 0.70-1.30 [facility] Comment on above: Performed By: #### A MY, PHOS, CMP, LIPA ####[facility] Imjgokhegg[address] [place], [place] [address]Dr. Chrissy Frazier EGFR-AF BAHAMIAN >60 Normal >=60 [facility] Comment on above: Performed By: #### A MY, PHOS, CMP, LIPA ####[facility] Zhyvxeenmi24[address] [place] [address]Dr. Chrissy Frazier EGFR-NON AF BAHAMIAN 57 mL/min/1.73m2 Critically low >=60 [facility] Comment on above: Performed By: #### A MY, PHOS, CMP, LIPA ####[facility] Fvbdsahiuv2355 [place] [address]Dr. Chrissy Frazier Globulin (S) [Mass/Vol] 3.9 g/dL Normal [facility] Comment on above: Performed By: #### A MY, PHOS, CMP, LIPA ####[facility] Aypzqhalqs84[address] [place] [address]Dr. Chrissy Frazier Glucose [Mass/Vol] 148 mg/dL Critically high 74-106 [facility] Comment on above: Performed By: #### A MY, PHOS, CMP, LIPA ####[facility] Axwbrypirg4093 [place] [address]Dr. Chrissy Frazier Potassium [Moles/Vol] 3.1 mmol/L Critically low 3.5-5.1 [facility] Comment on above: Performed By: #### A MY, PHOS, CMP, LIPA ####[facility] Oelpepsglq33[address] [place] [address]Dr. Chrissy Frazier Protein [Mass/Vol] 8.1 g/dL Normal 6.4-8.2 [facility] Comment on above: Performed By: #### A MY, PHOS, CMP, LIPA ####[facility] Nsfgigsjix14[address] [place] [address]Dr. Chrissy Frazier Sodium [Moles/Vol] 140 mmol/L Normal 136-145 [facility] Comment on above: Performed By: #### A MY, PHOS, CMP, LIPA ####[facility] [address] [place] [address]Dr. Chrissy Frazier Urea nitrogen [Mass/Vol] 10.0 mg/dL Normal 7.0-18.0 [facility] Comment on above: Performed By: #### A MY, PHOS, CMP, LIPA ####[facility] Ikfpcfudek[address] [place] [address]Dr. Chrissy Fraizer Urea nitrogen/Creatinine [Mass ratio] 6.9 mg/mg Normal [facility] Comment on above: Performed By: #### A MY, PHOS, CMP, LIPA ####[facility] Cploctmlyw[address] [place] [address]Dr. Chrissy Freddie UA RANDOM W/MICROSCOPICon BACTERIA TRACE Abnormal NONE SEEN [facility] Comment on above: Performed By: #### D REYES UAMIC ####[facility] Sjeylasnib[address] [place] [address]Dr. Tishrowan Freddie Bilirubin Ql (U) Negative Normal NEGATIVE [facility] Comment on above: Performed By: #### D REYES UAMIC ####[facility] Zrjxgcbaau[address] [place] [address]Dr. Chrissy Frazier CAST NONE SEEN Normal NONE SEEN [facility] Comment on above: Performed By: #### Amelie CHAMBERS UAMIC ####[facility] Pgbsexjxti[address] [place], [place] [address]Dr. Chrissy Frazier Clarity (U) CLEAR Normal CLEAR [facility] Comment on above: Performed By: #### Amelie CHAMBERS UAMIC ####[facility] Qmushwmske[address] [place] [address]Dr. Chrissy Frazier Color (U) YELLOW Normal YELLOW [facility] Comment on above: Performed By: #### Amelie CHAMBERS UAMIC ####[facility] Rwlgenrtor[address] [place], [place] [address]Dr. Chrissy Frazier Crystals LM Nom (Urine sed) NONE SEEN Normal NONE SEEN [facility] Comment on above: Performed By: #### Amelie CHAMBERS UAMIC ####[facility] Gxmlemshmh[address] [place], [place] [address]Dr. Chrissy Frazier Epithelial cells LM Ql (Urine sed) RARE Normal NONE SEEN /RARE [facility] Comment on above: Performed By: #### Amelie CHAMBERS UAMIC ####[facility] Kojnyzaikz[address] [place], [place] [address]Dr. Chrissy Frazier Glucose Ql (U) Negative Normal NEGATIVE The [facility] Comment on above: Performed By: #### Amelie CHAMBERS UAMIC ####[facility] Jlqxvnbujw[address] [place], [place] [address]Dr. Chrissy Frazier Hemoglobin Ql (U) Negative Normal NEGATIVE [facility] Comment on above: Performed By: #### Amelie CHAMBERS UAMIC ####[facility] Fjbnxzoyhg[address] [place], [place] [address]Dr. Chrissy Frazier Ketones Ql (U) 40 mg/dl Abnormal NEGATIVE The [facility] Comment on above: Performed By: #### Amelie CHAMBERS UAMIC ####[facility] Prbvhjckvm54[address] [place], [place] [address]Dr. Chrissy Frazier LEUKOCYTES Negative Normal NEGATIVE [facility] Comment on above: Performed By: #### Amelie CHAMBERS, UAMIC ####[facility] Jflgqmwzpw56[address] [place] [address]Dr. Chrissy Frazier MUCOUS MODERATE Abnormal NONE SEEN [facility] Comment on above: Performed By: #### Amelie CHAMBERS, UAMIC ####[facility] Hswsgjyijl25[address] [place] [address]Dr. Chrissy Frazier Nitrite Ql (U) Negative Normal NEGATIVE The [facility] Comment on above: Performed By: #### Amelie CHAMBERS UAMIC ####[facility] Lqalckkhjv[address] [place], [place] [address]Dr. Chrissy Frazier pH (U) 6.0 [pH] Normal 5-9 [facility] Comment on above: Performed By: #### Amelie CHAMBERS UAMIC ####[facility] Kiaoiwssnm[address] [place], [place] [address]Dr. Chrissy Frazier RBC 0-2 Normal 0-2 [facility] Comment on above: Performed By: #### Amelie CHAMBERS UAMIC ####[facility] Blflyqrrer418[address] [place], [place] [address]Dr. Chrissy Frazier SPEC GRAVITY 1.020 Normal 1.005-<=1.025 [facility] Comment on above: Performed By: #### Amelie CHAMBERS UAMIC ####[facility] Imztkdjbpf237[address] [place], [place] [address]Dr. Chrissy Frazier UA PROTEIN Negative Normal NEGATIVE/ TRACE [facility] Comment on above: Performed By: #### Amelie CHAMBERS UAMIC ####[facility] Owgtpbewjc54[address] [place], [place] [address]Dr. Chrissy Frazier Urobilinogen Qn (U) 0.2 {Estrellita'U}/dL Normal 0.2 - 1. 0 [facility] Comment on above: Performed By: #### Amelie CHAMBERS UAMIC ####[facility] Qaixiemdlo7[address] [place], [place] [address]Dr. Chrissy Frazier WBC 0-2 Abnormal NONE SEEN [facility] Comment on above: Performed By: #### D RUGRPD, UAMIC ####[facility] Prmrwgshcj8[address] [place], [place] [address]Ge. Chrissy Frazier XR ABD FLAT UP_PA Enoch 07-01 XR ABD FLAT UP_PA CH Normal [facility] Covid-19 PCR (CVDTB)on SARS-CoV-2 (COVID-19) RNA RHIANNON+probe Ql (Unsp spec) Not detected Normal NOT DETECTED [facility] Comment on above: Result Comment: [...] for this test is supported by the Network Development Coordinator of Health and Human Service's declaration that [...] longer be used). Performed By: #### [facility] ####[facility] Cldlvmhpiy34[address] [place], [place] [address]Vi. Chrissy Frazier SYMPTOMATIC COVID-19 ANTIGEN on 04-23-2022 EUA Statement SEE BELOW Normal The [facility] Comment on above: Result Comment: This [...] revoked sooner. Performed By: #### C VDAGS ####[facility] Tvziojnyvq8[address] [place] [address]Dr. Chrissy Frazier SARS-CoV-2 (COVID-19) RNA RHIANNON+probe Ql (Unsp spec) Negative Normal NEGATIVE [facility] Comment on above: Performed By: #### C VDAGS ####[facility] Iznziouzsj[address] [place], [place] [address]Dr. Chrissy Frazier AMYLASEon 04-04-2022 Amylase [Catalytic activity/Vol] 40 U/L Normal 25-115 [facility] Comment on above: Performed By: #### C MP, TERRENCE, LIPA ####[facility] Nevtlatetg[address] [place], [place] [address]Dr. Chrissy Frazier CBC AUTO DIFFon 04-04-2022 BASO # 0.1 103/ul Normal 0.0-0.1 [facility] Comment on above: Performed By: #### C BC ####[facility] Rpsbkeosrr288[address] [place], [place] [address]Dr. Chrissy Frazier Basophils/100 WBC (Bld) 0.4 % Normal 0.2-2.0 [facility] Comment on above: Performed By: #### C BC ####[facility] Bmtbghycwk[address] [place], [place] [address]Dr. Chrissy Frazier EO # 0.1 103/ul Normal 0.0-0.7 [facility] Comment on above: Performed By: #### C BC ####[facility] Vzdndrxaeo[address] [place], [place] [address]Dr. Chrissy Frazier Eosinophils/100 WBC (Bld) 0.6 % Critically low 0.9-7.0 [facility] Comment on above: Performed By: #### C BC ####[facility] Wxqqvzoxkb306[address] [place], [place] [address]Dr. Chrissy Frazier Erythrocyte distribution width (RBC) [Ratio] 13.2 % Normal 11.0-15.0 [facility] Comment on above: Performed By: #### C BC ####[facility] Jozrvmolft[address] [place] [address]Dr. Chrissy Frazier Hematocrit (Bld) [Volume fraction] 48.3 % Normal 42.0-54.0 [facility] Comment on above: Performed By: #### C BC ####[facility] Qbcczerhos48[address] [place] [address]Dr. Chrissy Frazier Hemoglobin (Bld) [Mass/Vol] 16.1 g/dL Normal 14.0-18.0 [facility] Comment on above: Performed By: #### C BC ####[facility] Gznnugqyxv006[address] [place], [place] [address]Dr. Chrissy Frazier IG # 0.12 10e3/ul Critically high 0.00-0.03 [facility] Comment on above: Performed By: #### C BC ####[facility] Bwhqxegpkf[address] [place], [place] [address]Dr. Chrissy Frazier IG % 0.9 % Critically high 0.0-0.5 [facility] Comment on above: Performed By: #### C BC ####[facility] Pfytryzrot40[address] [place], [place] [address]Dr. Chrissy Frazier LYMPH # 3.0 103/ul Normal 1.2-3.8 [facility] Comment on above: Performed By: #### C BC ####[facility] Ryveonvcku[address] [place], [place] [address]Dr. Chrissy Frazier Lymphocytes/100 WBC (Bld) 22.3 % Normal 20.5-60.0 [facility] Comment on above: Performed By: #### C BC ####[facility] Lcbwhnorcf82[address] [place], [place] [address]DrNancy Frazier MANUAL DIFF REQ NO Normal [facility] Comment on above: Performed By: #### C BC ####[facility] Qqqwsjsvnk06[address] [place], [place] [address]DrNancy Frazier MCH (RBC) [Entitic mass] 28.6 pg Normal 25.9-34.0 [facility] Comment on above: Performed By: #### C BC ####[facility] Yidsfxmwxo[address] [place] [id number]. Chrissy Freddie MCHC (RBC) [Mass/Vol] 33.3 g/dL Normal 29.9-35.2 [facility] Comment on above: Performed By: #### C BC ####[facility] Arhunuhyzu[address] [place] [id number]. Tishrowan Freddie MCV (RBC) [Entitic vol] 85.9 fL Normal 80.0-94.0 [facility] Comment on above: Performed By: #### C BC ####[facility] Aahqcvspka[address] [place], [place] [address]Dr. Chrissy Frazier MONO # 0.8 103/ul Normal 0.3-0.8 [facility] Comment on above: Performed By: #### C BC ####[facility] Lundbnftaf[address] [place], [place] [address]Dr. Chrissy Frazier Monocytes/100 WBC (Bld) 5.7 % Normal 1.7-12.0 [facility] Comment on above: Performed By: #### C BC ####[facility] Lgpueqzmfx[address] [place], [place] [address]Dr. Chrissy Frazier NEUT # 9.3 103/ul Critically high 1.4-6.5 [facility] Comment on above: Performed By: #### C BC ####[facility] Wavrkonvin[address] [place], [place] [address]Dr. Chrissy Frazier Neutrophils/100 WBC (Bld) 70.1 % Normal 43.0-75.0 [facility] Comment on above: Performed By: #### C BC ####[facility] Jvkhmlvrit[address] [place], [place] [address]DrNancy Frazier Platelet mean volume (Bld) [Entitic vol] 10.3 fL Normal 9.5-13.5 [facility] Comment on above: Performed By: #### C BC ####[facility] Pjmvhucuyy[address] [place], [place] [address]Dr. Chrissy Frazier PLT 461 103/ul Critically high 150-450 [facility] Comment on above: Performed By: #### C BC ####[facility] Tmcogkyifi[address] [place] [address]Dr. Tishrowan Freddie RBC 5.62 106/ul Normal 4.70-6.10 [facility] Comment on above: Performed By: #### C BC ####[facility] Evciltbqwg18[address] [place] [id number]. Chrissy Frazier WBC 13.3 103/ul Critically high 4.0-11.0 [facility] Comment on above: Performed By: #### C BC ####[facility] Cxtogkeuje6[address] [place] [address]Dr. Chrissy Frazier LIPASEon 04-04-2022 Lipase [Catalytic activity/Vol] 118.0 U/L Normal 73.0-393.0 [facility] Comment on above: Performed By: #### C MP, TERRENCE, LIPA ####[facility] Myrobkfsqk42[address] [place] [address]Dr. Chrissy Frazier PROF 14(COMP METB)on 022 Albumin [Mass/Vol] 4.3 g/dL Normal 3.4-5.0 [facility] Comment on above: Performed By: #### C MP, TERRENCE, LIPA ####[facility] Baqmggttct36[address] [place] [address]Dr. Chrissy Frazier Albumin/Globulin [Mass ratio] 1.0 {ratio} Normal [facility] Comment on above: Performed By: #### C MP, TERRENCE, LIPA ####[facility] Ooeumafqvy17[address] [place] [address]Dr. Chrissy Frazier ALP [Catalytic activity/Vol] 84 U/L Normal 46-116 [facility] Comment on above: Performed By: #### C MP, TERRENCE, LIPA ####[facility] Zxrpqzpgst6805 [place] [address]Dr. Chrissy Frazier ALT [Catalytic activity/Vol] 81 U/L Critically high 16-63 [facility] Comment on above: Performed By: #### C MP, TERRENCE, LIPA ####[facility] Yzpyudxhwo1342 [place] [id number]. Chrissy Frazier Anion gap [Moles/Vol] 17.9 mmol/L Normal [facility] Comment on above: Performed By: #### C MP, TERRENCE, LIPA ####[facility] Dozjlbrjvo7734 [place] [address]Dr. Chrissy Frazier AST [Catalytic activity/Vol] 25 U/L Normal 15-37 [facility] Comment on above: Performed By: #### C MP, TERRENCE, LIPA ####[facility] Vhgqpyjglx2838 [place] [address]Dr. Chrissy Frazier Bilirubin [Mass/Vol] 0.5 mg/dL Normal 0.2-1.0 [facility] Comment on above: Performed By: #### C MP, TERRENCE, LIPA ####[facility] Ssffgcmjpf3923 [place] [address]Dr. Chrissy Frazier Calcium [Mass/Vol] 9.6 mg/dL Normal 8.5-10.1 [facility] Comment on above: Performed By: #### C MP, TERRENCE, LIPA ####[facility] Djgdwfletz8[address] [place] [address]Dr. Chrissy Frazier Chloride [Moles/Vol] 101 mmol/L Normal 98-107 [facility] Comment on above: Performed By: #### C MP, TERRENCE, LIPA ####[facility] Ynvsycimph2719 [place] [address]Dr. Chrissy Frazier CO2 [Moles/Vol] 18.6 mmol/L Critically low 21.0-32.0 [facility] Comment on above: Performed By: #### C MP, TERRENCE, LIPA ####[facility] Vodmmtttmb6[address] [place] [address]Dr. Chrissy Frazier Creatinine [Mass/Vol] 1.39 mg/dL Critically high 0.70-1.30 [facility] Comment on above: Performed By: #### C MP, TERRENCE, LIPA ####[facility] Fnnfnhhvgf60[address] [place] [address]Dr. Chrissy Frazier EGFR-AF BAHAMIAN >60 Normal >=60 [facility] Comment on above: Performed By: #### C MP, TERRENCE, LIPA ####[facility] Erztqjlzvw0972 [place] [address]Dr. Chrissy Frazier EGFR-NON AF BAHAMIAN 59 mL/min/1.73m2 Critically low >=60 [facility] Comment on above: Performed By: #### C MP, TERRENCE, LIPA ####[facility] Hlbnifmlkq4[address] [place] [address]Dr. Chrissy Frazier Globulin (S) [Mass/Vol] 4.3 g/dL Normal [facility] Comment on above: Performed By: #### C MP, TERRENCE, LIPA ####[facility] Parkbrfikq67[address] [place] [address]Dr. Chrissy Frazier Glucose [Mass/Vol] 132 mg/dL Critically high 74-106 [facility] Comment on above: Performed By: #### C MP, TERRENCE, LIPA ####[facility] Ahbucmoijc[address] [place], [place] [address]Dr. Chrissy Frazier Potassium [Moles/Vol] 3.5 mmol/L Normal 3.5-5.1 [facility] Comment on above: Performed By: #### C MP, TERRENCE, LIPA ####[facility] Svmjnbrdyf[address] [place], [place] [address]Dr. Chrissy Frazier Protein [Mass/Vol] 8.6 g/dL Critically high 6.4-8.2 [facility] Comment on above: Performed By: #### C MP, TERRENCE, LIPA ####[facility] Uwbabkethl[address] [place] [address]Dr. Chrissy Frazier Sodium [Moles/Vol] 134 mmol/L Critically low 136-145 [facility] Comment on above: Performed By: #### C MP, TERRENCE, LIPA ####[facility] Vekjizkepi3493 [place] [address]Dr. Chrissy Frazier Urea nitrogen [Mass/Vol] 8.0 mg/dL Normal 7.0-18.0 [facility] Comment on above: Performed By: #### C MP, TERRENCE, LIPA ####[facility] Mywassqqxy4947 [place] [address]Dr. Chrissy Frazier Urea nitrogen/Creatinine [Mass ratio] 5.8 mg/mg Normal [facility] Comment on above: Performed By: #### C TERRENCE ADAIR LIPA ####[facility] Kqruiaooyp95[address] [place] [address]Dr. Chrissy Frazier XR ABD FLAT UP_PA Enoch 04-04 XR ABD FLAT UP_PA CH Normal [facility] AMMONIAon 03-31-2022 Ammonia (P) [Moles/Vol] 19 umol/L Normal 11-32 [facility] Comment on above: Performed By: #### A MM ####[facility] Shzmjxbfyt[address] [place], [place] [address]Dr. Chrissy Freddie CBC AUTO DIFFon 03-31-2022 BASO # 0.1 103/ul Normal 0.0-0.1 [facility] Comment on above: Performed By: #### C BC ####[facility] Wkneiorqjg06[address] [place], [place] [address]Dr. Chrissy Freddie Basophils/100 WBC (Bld) 0.5 % Normal 0.2-2.0 [facility] Comment on above: Performed By: #### C BC ####[facility] Yzqdftmncz[address] [place], [place] [address]Dr. Chrissy Frazier EO # 0.2 103/ul Normal 0.0-0.7 [facility] Comment on above: Performed By: #### C BC ####[facility] Lszqcwmszc[address] [place], [place] [address]Dr. Tishrowan Frazier Eosinophils/100 WBC (Bld) 1.6 % Normal 0.9-7.0 [facility] Comment on above: Performed By: #### C BC ####[facility] Csveisyysv[address] [place], [place] [address]Dr. Chrissy Freddie Erythrocyte distribution width (RBC) [Ratio] 13.2 % Normal 11.0-15.0 [facility] Comment on above: Performed By: #### C BC ####[facility] [address]zmtjdijgt46[address] [place], [place] [address]Dr. Chrissy Frazier Hematocrit (Bld) [Volume fraction] 42.1 % Normal 42.0-54.0 [facility] Comment on above: Performed By: #### C BC ####[facility] Yefkkkhafd3499 [place] [address]Dr. Chrissy Frazier Hemoglobin (Bld) [Mass/Vol] 14.3 g/dL Normal 14.0-18.0 [facility] Comment on above: Performed By: #### C BC ####[facility] Sbvfsyurrt3231 [place] [address]Dr. Chrissy Frazier IG # 0.05 10e3/ul Critically high 0.00-0.03 [facility] Comment on above: Performed By: #### C BC ####[facility] Ldbmdryxqa6338 [place] [address]Dr. Chrissy Frazier IG % 0.5 % Normal 0.0-0.5 [facility] Comment on above: Performed By: #### C BC ####[facility] Otpjrexxam028[address] [place] [address]Dr. Chrissy Frazier LYMPH # 2.9 103/ul Normal 1.2-3.8 [facility] Comment on above: Performed By: #### C BC ####[facility] Xmtbrndyem6925 [place] [address]Dr. Chrissy Frazier Lymphocytes/100 WBC (Bld) 25.7 % Normal 20.5-60.0 [facility] Comment on above: Performed By: #### C BC ####[facility] Rcndmppith3[address] [place] [address]Dr. Chrissy Frazier MANUAL DIFF REQ NO Normal [facility] Comment on above: Performed By: #### C BC ####[facility] Hmubvbtefb0685 [place] [address]Dr. Chrissy Frazier MCH (RBC) [Entitic mass] 29.2 pg Normal 25.9-34.0 [facility] Comment on above: Performed By: #### C BC ####[facility] Duermueqdc0[address] [place] [address]Dr. Chrissy Frazier MCHC (RBC) [Mass/Vol] 34.0 g/dL Normal 29.9-35.2 [facility] Comment on above: Performed By: #### C BC ####[facility] Jqmdxiqdsz6874 [place] [id number]. Chrissy Frazier MCV (RBC) [Entitic vol] 85.9 fL Normal 80.0-94.0 [facility] Comment on above: Performed By: #### C BC ####[facility] Ldrenvzxan9349 [place] [id number]. Chrissy Freddie MONO # 1.0 103/ul Critically high 0.3-0.8 [facility] Comment on above: Performed By: #### C BC ####[facility] Rjvfufityx6499 [place] [address]Dr. Chrissy Frazier Monocytes/100 WBC (Bld) 8.6 % Normal 1.7-12.0 [facility] Comment on above: Performed By: #### C BC ####[facility] Kyiitcqxoi[address] [place], [place] [address]Dr. Chrissy Frazier NEUT # 7.0 103/ul Critically high 1.4-6.5 [facility] Comment on above: Performed By: #### C BC ####[facility] Qqraszwtly[address] [place], [place] [address]Dr. Tishrowan Frazier Neutrophils/100 WBC (Bld) 63.1 % Normal 43.0-75.0 [facility] Comment on above: Performed By: #### C BC ####[facility] Fulzogxpue9105 [place] [id number]. Tishrowan Frazier Platelet mean volume (Bld) [Entitic vol] 10.4 fL Normal 9.5-13.5 [facility] Comment on above: Performed By: #### C BC ####[facility] Sziqhvnilg8757 [place] [id number]. Chrissy Frazier PLT 308 103/ul Normal 150-450 [facility] Comment on above: Performed By: #### C BC ####[facility] Okedrlwwok[address] [place], [place] [address]Dr. Chrissy Frazier RBC 4.90 106/ul Normal 4.70-6.10 [facility] Comment on above: Performed By: #### C BC ####[facility] Yfvejxglxr8661 [place] [address]Dr. Tishrowan Freddie WBC 11.1 103/ul Critically high 4.0-11.0 [facility] Comment on above: Performed By: #### C BC ####[facility] Giqfcmpydf6748 [place] [address]Dr. Chrissy Frazier PROF 14(COMP METB)on 022 Albumin [Mass/Vol] 3.5 g/dL Normal 3.4-5.0 [facility] Comment on above: Performed By: #### C MP ####[facility] Kqlswuecgq[address] [place], [place] [address]Dr. Chrissy Frazier Albumin/Globulin [Mass ratio] 0.9 {ratio} Normal [facility] Comment on above: Performed By: #### C MP ####[facility] Yjenshstmi[address] [place], [place] [address]Dr. Tishrowan Frazier ALP [Catalytic activity/Vol] 68 U/L Normal 46-116 [facility] Comment on above: Performed By: #### C MP ####[facility] Gxwvsmuxxj96[address] [place], [place] [address]Dr. Chrsisy Frazier ALT [Catalytic activity/Vol] 113 U/L Critically high 16-63 [facility] Comment on above: Performed By: #### C MP ####[facility] Rtdzccdlhs[address] [place], [place] [address]Dr. Chrissy Frazier Anion gap [Moles/Vol] 14.0 mmol/L Normal [facility] Comment on above: Performed By: #### C MP ####[facility] Xzejyuhdgb[address] [place], [place] [address]Dr. Chrissy Frazier AST [Catalytic activity/Vol] 31 U/L Normal 15-37 [facility] Comment on above: Performed By: #### C MP ####[facility] Nefljgkmko68[address] [place], [place] [address]Dr. Chrissy Frazier Bilirubin [Mass/Vol] 0.6 mg/dL Normal 0.2-1.0 [facility] Comment on above: Performed By: #### C MP ####[facility] Nunxxmuuby24[address] [place], [place] [address]Dr. Chrissy Frazier Calcium [Mass/Vol] 8.4 mg/dL Critically low 8.5-10.1 [facility] Comment on above: Performed By: #### C MP ####[facility] Zcbfpzpwid[address] [place], [place] [address]Dr. Chrissy Frazier Chloride [Moles/Vol] 101 mmol/L Normal 98-107 [facility] Comment on above: Performed By: #### C MP ####[facility] Zxuuuzzieo38[address] [place], [place] [address]Dr. Chrissy Frazier CO2 [Moles/Vol] 24.2 mmol/L Normal 21.0-32.0 [facility] Comment on above: Performed By: #### C MP ####[facility] Fdqedxillu[address] [place], [place] [address]Dr. Chrissy Frazier Creatinine [Mass/Vol] 1.15 mg/dL Normal 0.70-1.30 [facility] Comment on above: Performed By: #### C MP ####[facility] [address]qwdktcfv[address] [place], [place] [address]Dr. Chrissy Frazier EGFR-AF BAHAMIAN >60 Normal >=60 [facility] Comment on above: Performed By: #### C MP ####[facility] Nxaeiuwlqs[address] [place], [place] [address]Dr. Chrissy Frazier EGFR-NON AF BAHAMIAN >60 Normal >=60 [facility] Comment on above: Performed By: #### C MP ####[facility] Rqfjkosoqw4[address] [place], [place] [address]Dr. Chrissy Frazier Globulin (S) [Mass/Vol] 3.8 g/dL Normal [facility] Comment on above: Performed By: #### C MP ####[facility] Tydyaxatnh[address] [place], [place] [address]Dr. Chrissy Frazier Glucose [Mass/Vol] 100 mg/dL Normal 74-106 [facility] Comment on above: Performed By: #### C MP ####[facility] [address]tvaojxshl[address] [place] [address]Dr. Chrissy Frazier Potassium [Moles/Vol] 3.2 mmol/L Critically low 3.5-5.1 [facility] Comment on above: Performed By: #### C MP ####[facility] Vprvynondh[address] [place], [place] [address]Dr. Chrissy Frazier Protein [Mass/Vol] 7.3 g/dL Normal 6.4-8.2 [facility] Comment on above: Performed By: #### C MP ####[facility] Qbrivfhhgv858[address] [place], [place] [address]Dr. Chrissy Frazier Sodium [Moles/Vol] 136 mmol/L Normal 136-145 [facility] Comment on above: Performed By: #### C MP ####[facility] Zggaidkasc309[address] [place], [place] [address]Dr. Chrissy Frazier Urea nitrogen [Mass/Vol] 13.0 mg/dL Normal 7.0-18.0 [facility] Comment on above: Performed By: #### C MP ####[facility] Kgsvfvseyh448[address] [place], [place] [address]Dr. Chrissy Frazier Urea nitrogen/Creatinine [Mass ratio] 11.3 mg/mg Normal [facility] Comment on above: Performed By: #### C MP ####[facility] Doortbrtcj38[address] [place], [place] [address]Dr. Chrissy Frazier AMMONIAon 03-30-2022 Ammonia (P) [Mass/Vol] ug/dL Critically low 11-32 [facility] Comment on above: Performed By: #### A MM ####[facility] Dqoeojfclg126[address] [place], [place] [address]Dr. Chrissy Frazier CBC AUTO DIFFon 03-30-2022 BASO # 0.1 103/ul Normal 0.0-0.1 [facility] Comment on above: Performed By: #### C BC ####[facility] Lomtemhcff[address] [place], [place] [address]Dr. Chrissy Frazier Basophils/100 WBC (Bld) 0.5 % Normal 0.2-2.0 [facility] Comment on above: Performed By: #### C BC ####[facility] Edtcegzigi[address] [place] [address]Dr. Chrissy Frazier EO # 0.1 103/ul Normal 0.0-0.7 [facility] Comment on above: Performed By: #### C BC ####[facility] Fwbdlpnulf56[address] [place], [place] [address]Dr. Chrissy Frazier Eosinophils/100 WBC (Bld) 1.1 % Normal 0.9-7.0 [facility] Comment on above: Performed By: #### C BC ####[facility] Dpxuxtkkxf65[address] [place], [place] [address]Dr. Chrissy Frazier Erythrocyte distribution width (RBC) [Ratio] 13.4 % Normal 11.0-15.0 [facility] Comment on above: Performed By: #### C BC ####[facility] Vqovghvwwj9[address] [place], [place] [address]Dr. Chrissy Frazier Hematocrit (Bld) [Volume fraction] 45.8 % Normal 42.0-54.0 [facility] Comment on above: Performed By: #### C BC ####[facility] Pxdbyqmwzo743[address] [place], [place] [address]Dr. Chrissy Frazier Hemoglobin (Bld) [Mass/Vol] 14.9 g/dL Normal 14.0-18.0 [facility] Comment on above: Performed By: #### C BC ####[facility] Mkhkdxhpam556[address] [place], [place] [address]Dr. Chrissy Frazier IG # 0.05 10e3/ul Critically high 0.00-0.03 [facility] Comment on above: Performed By: #### C BC ####[facility] Lfogircleb61979[address] [place], [place] [address]Dr. Chrissy Frazier IG % 0.5 % Normal 0.0-0.5 [facility] Comment on above: Performed By: #### C BC ####[facility] Vsscuewkit634[address] [place], [place] [address]Dr. Chrissy Frazier LYMPH # 3.0 103/ul Normal 1.2-3.8 [facility] Comment on above: Performed By: #### C BC ####[facility] Xsmxgxmnal[address] [place] [address]Dr. Chrissy Frazier Lymphocytes/100 WBC (Bld) 30.2 % Normal 20.5-60.0 [facility] Comment on above: Performed By: #### C BC ####[facility] Ummylipdpu18[address] [place] [address]Dr. Chrissy Frazier MANUAL DIFF REQ NO Normal [facility] Comment on above: Performed By: #### C BC ####[facility] Ftmrwxrwkw36[address] [place] [address]Dr. Chrissy Frazier MCH (RBC) [Entitic mass] 28.4 pg Normal 25.9-34.0 [facility] Comment on above: Performed By: #### C BC ####[facility] Yrkvtylhpr366[address] [place], [place] [address]Dr. Chrissy Frazier MCHC (RBC) [Mass/Vol] 32.5 g/dL Normal 29.9-35.2 [facility] Comment on above: Performed By: #### C BC ####[facility] Zrnfymhcgv865[address] [place], [place] [address]Dr. Chrissy Frazier MCV (RBC) [Entitic vol] 87.4 fL Normal 80.0-94.0 [facility] Comment on above: Performed By: #### C BC ####[facility] Trpblsfday483[address] [place], [place] [address]Dr. Chrissy Frazier MONO # 0.8 103/ul Normal 0.3-0.8 [facility] Comment on above: Performed By: #### C BC ####[facility] Smxlcfcegg982198 [address] [place], [place] [address]Dr. Chrissy Frazier Monocytes/100 WBC (Bld) 7.9 % Normal 1.7-12.0 [facility] Comment on above: Performed By: #### C BC ####[facility] Okthokbxgj565[address] [place], [place] [address]Dr. Yirowan Frazier NEUT # 5.9 103/ul Normal 1.4-6.5 [facility] Comment on above: Performed By: #### C BC ####[facility] Jldsmvrpmk[address] [place] [address]DrNancy Frazier Neutrophils/100 WBC (Bld) 59.8 % Normal 43.0-75.0 [facility] Comment on above: Performed By: #### C BC ####[facility] Lqajnvhlos69[address] [place] [address]DrNancy Frazier Platelet mean volume (Bld) [Entitic vol] 10.1 fL Normal 9.5-13.5 [facility] Comment on above: Performed By: #### C BC ####[facility] Qcrvxehsys7627[address] [place], [place] [address]DrNancy Frazier PLT 320 103/ul Normal 150-450 [facility] Comment on above: Performed By: #### C BC ####[facility] Jdapnqhqyy907[address] [place], [place] [address]DrNancy Frazier RBC 5.24 106/ul Normal 4.70-6.10 [facility] Comment on above: Performed By: #### C BC ####[facility] Howwmhkvbt4545[address] [place], [place] [address]DrNancy Frazier WBC 9.9 103/ul Normal 4.0-11.0 [facility] Comment on above: Performed By: #### C BC ####[facility] Snewiflcff0987[address] [place], [place] [address]Dr. Chrissy Frazier PROF 14(COMP METB)on 022 Albumin [Mass/Vol] 3.9 g/dL Normal 3.4-5.0 [facility] Comment on above: Performed By: #### C MP ####[facility] Yxpelbzvbp9617[address] [place], [place] [address]DrNancy Frazier Albumin/Globulin [Mass ratio] 1.1 {ratio} Normal [facility] Comment on above: Performed By: #### C MP ####[facility] Qoslxzrmsd838[address] [place], [place] [address]DrNancy Lowe Frazier ALP [Catalytic activity/Vol] 88 U/L Normal 46-116 [facility] Comment on above: Performed By: #### C MP ####[facility] Bjnvvgzooo26[address] [place] [address]Dr. Chrissy Frazier ALT [Catalytic activity/Vol] 161 U/L Critically high 16-63 [facility] Comment on above: Performed By: #### C MP ####[facility] Pcribgyqmc128[address] [place], [place] [address]Dr. Chrissy Freddie Anion gap [Moles/Vol] 12.3 mmol/L Normal [facility] Comment on above: Performed By: #### C MP ####[facility] Jqrqhzdsjy945[address] [place], [place] [address]Dr. Chrissy Freddie AST [Catalytic activity/Vol] 64 U/L Critically high 15-37 [facility] Comment on above: Performed By: #### C MP ####[facility] Jyotxivcnl7705[address] [place], [place] [address]Dr. Chrissy Freddie Bilirubin [Mass/Vol] 0.8 mg/dL Normal 0.2-1.0 [facility] Comment on above: Performed By: #### C MP ####[facility] Weombeyrne17[address] [place], [place] [address]Dr. Chrissy Freddie Calcium [Mass/Vol] 8.4 mg/dL Critically low 8.5-10.1 [facility] Comment on above: Performed By: #### C MP ####[facility] Nctpuhsswq7940[address] [place], [place] [address]Dr. Chrissy Freddie Chloride [Moles/Vol] 103 mmol/L Normal 98-107 [facility] Comment on above: Performed By: #### C MP ####[facility] Hlstjsjnpg112[address] [place], [place] [address]Dr. Chrissy Frazier CO2 [Moles/Vol] 26.5 mmol/L Normal 21.0-32.0 [facility] Comment on above: Performed By: #### C MP ####[facility] Ggqapbebde439[address] [place], [place] [address]Dr. Chrissy Frazier Creatinine [Mass/Vol] 1.24 mg/dL Normal 0.70-1.30 [facility] Comment on above: Performed By: #### C MP ####[facility] Bpbohunldj[address] [place] [address]Dr. Chrissy Frazier EGFR-AF BAHAMIAN >60 Normal >=60 [facility] Comment on above: Performed By: #### C MP ####[facility] Xptjfugmmx5[address] [place] [address]Dr. Chrissy Freddie EGFR-NON AF BAHAMIAN >60 Normal >=60 [facility] Comment on above: Performed By: #### C MP ####[facility] Pfcimasxba[address] [place] [address]Dr. Chrissy Freddie Globulin (S) [Mass/Vol] 3.7 g/dL Normal [facility] Comment on above: Performed By: #### C MP ####[facility] Rlzpujeuyx428[address] [place], [place] [address]Dr. Chrissy Freddie Glucose [Mass/Vol] 108 mg/dL Critically high 74-106 [facility] Comment on above: Performed By: #### C MP ####[facility] Bmvkqmuema58[address] [place] [address]Dr. Chrissy Freddie Potassium [Moles/Vol] 3.8 mmol/L Normal 3.5-5.1 [facility] Comment on above: Performed By: #### C MP ####[facility] Gmvtvbzegg8201 [place] [address]Dr. Chrissy Freddie Protein [Mass/Vol] 7.6 g/dL Normal 6.4-8.2 [facility] Comment on above: Performed By: #### C MP ####[facility] Gmkvvyofwd2927 [place] [address]Dr. Chrissy Frazier Sodium [Moles/Vol] 138 mmol/L Normal 136-145 [facility] Comment on above: Performed By: #### C MP ####[facility] Xmvlgfdqga1840 [place] [address]Dr. Chrissy Freddie Urea nitrogen [Mass/Vol] 12.0 mg/dL Normal 7.0-18.0 [facility] Comment on above: Performed By: #### C MP ####[facility] Zwnfrfxksv625[address] [place], [place] [address]Dr. Chrissy Frazier Urea nitrogen/Creatinine [Mass ratio] 9.7 mg/mg Normal [facility] Comment on above: Performed By: #### C MP ####[facility] Suhggjkbgx55[address] [place], [place] [address]Dr. Chrissy Frazier AMMONIAon 03-29-2022 Ammonia (P) [Moles/Vol] 27 umol/L Normal 11-32 [facility] Comment on above: Performed By: #### A MM ####[facility] Kmrbcdrwpb0867[address] [place], [place] [address]Dr. Chrissy Frazier AMYLASEon 03-29-2022 Amylase [Catalytic activity/Vol] 29 U/L Normal 25-115 [facility] Comment on above: Performed By: #### L IPA, TERRENCE ####[facility] Sruinrvgro814[address] [place], [place] [address]Dr. Chrissy Frazier CBC AUTO DIFFon 03-29-2022 BASO # 0.0 103/ul Normal 0.0-0.1 [facility] Comment on above: Performed By: #### C BC ####[facility] Neinruhcdg190[address] [place], [place] [address]Dr. Chrissy Frazier Basophils/100 WBC (Bld) 0.2 % Normal 0.2-2.0 [facility] Comment on above: Performed By: #### C BC ####[facility] Mjxgghpxpc995[address] [place], [place] [address]Dr. Chrissy Frazier EO # 0.0 103/ul Normal 0.0-0.7 [facility] Comment on above: Performed By: #### C BC ####[facility] Jutbyrwzgl683[address] [place], [place] [address]Dr. Chrissy Frazier Eosinophils/100 WBC (Bld) 0.4 % Critically low 0.9-7.0 [facility] Comment on above: Performed By: #### C BC ####[facility] Okvhidmucb456[address] [place], [place] [address]Dr. Chrissy Frazier Erythrocyte distribution width (RBC) [Ratio] 13.6 % Normal 11.0-15.0 [facility] Comment on above: Performed By: #### C BC ####[facility] Qvqukfncji9940 [place] [address]Dr. Chrissy Frazier Hematocrit (Bld) [Volume fraction] 45.2 % Normal 42.0-54.0 [facility] Comment on above: Performed By: #### C BC ####[facility] Eisfdpihvz110[address] [place], [place] [address]Dr. Chrissy Frazier Hemoglobin (Bld) [Mass/Vol] 14.8 g/dL Normal 14.0-18.0 [facility] Comment on above: Performed By: #### C BC ####[facility] Iuyqwcyvud885[address] [place], [place] [address]Dr. Tishrowan Frazier IG # 0.03 10e3/ul Normal 0.00-0.03 [facility] Comment on above: Performed By: #### C BC ####[facility] Nmegybjjuc2844[address] [place], [place] [address]Dr. Chrissy Frazier IG % 0.3 % Normal 0.0-0.5 [facility] Comment on above: Performed By: #### C BC ####[facility] Uznpvbdviy715[address] [place], [place] [address]Dr. Chrissy Frazier LYMPH # 2.0 103/ul Normal 1.2-3.8 [facility] Comment on above: Performed By: #### C BC ####[facility] Oktdioofqj7047[address] [place], [place] [address]Dr. Chrissy Freddie Lymphocytes/100 WBC (Bld) 18.3 % Critically low 20.5-60.0 [facility] Comment on above: Performed By: #### C BC ####[facility] Ntowhasfll9438[address] [place], [place] [address]Dr. Tishorwan Frazier MANUAL DIFF REQ NO Normal [facility] Comment on above: Performed By: #### C BC ####[facility] Dyyebhetha487[address] [place], [place] [address]Dr. Chrissy Frazier MCH (RBC) [Entitic mass] 28.5 pg Normal 25.9-34.0 [facility] Comment on above: Performed By: #### C BC ####[facility] Hmcljqbfsr48[address] [place] [address]Dr. Chrissy Frazier MCHC (RBC) [Mass/Vol] 32.7 g/dL Normal 29.9-35.2 [facility] Comment on above: Performed By: #### C BC ####[facility] Yeguqqmhkk3213[address] [place], [place] [address]Dr. Chrissy Frazier MCV (RBC) [Entitic vol] 87.1 fL Normal 80.0-94.0 [facility] Comment on above: Performed By: #### C BC ####[facility] Nmjvdpwntr668[address] [place], [place] [address]Dr. Chrissy Frazier MONO # 0.9 103/ul Critically high 0.3-0.8 [facility] Comment on above: Performed By: #### C BC ####[facility] Jrtxpyhanl525[address] [place], [place] [address]Dr. Chrissy Frazier Monocytes/100 WBC (Bld) 8.6 % Normal 1.7-12.0 [facility] Comment on above: Performed By: #### C BC ####[facility] Oistoqjsvn3045[address] [place], [place] [address]Dr. Tishrowan Frazier NEUT # 7.8 103/ul Critically high 1.4-6.5 [facility] Comment on above: Performed By: #### C BC ####[facility] Qgmbqodkgx725[address] [place], [place] [address]Dr. Chrissy Frazier Neutrophils/100 WBC (Bld) 72.2 % Normal 43.0-75.0 [facility] Comment on above: Performed By: #### C BC ####[facility] Gnsawtqdsi4318[address] [place], [place] [address]Dr. Chrsisy Frazier Platelet mean volume (Bld) [Entitic vol] 10.1 fL Normal 9.5-13.5 [facility] Comment on above: Performed By: #### C BC ####[facility] Heujljnesr[address] [place] [id number]. Chrissy Frazier PLT 329 103/ul Normal 150-450 [facility] Comment on above: Performed By: #### C BC ####[facility] Lvqwesphkk78[address] [place] [id number]. Chrissy Frazier RBC 5.19 106/ul Normal 4.70-6.10 [facility] Comment on above: Performed By: #### C BC ####[facility] Szwufgrkhb2376 [place] [id number]. Chrissy Frazier WBC 10.8 103/ul Normal 4.0-11.0 [facility] Comment on above: Performed By: #### C BC ####[facility] Cusifwwaau[address] [place] [address]Dr. Chrissy Frazier LIPASEon 03-29-2022 Lipase [Catalytic activity/Vol] 58.0 U/L Critically low 73.0-393.0 [facility] Comment on above: Performed By: #### L TERRENCE VICTORIA ####[facility] Wlyxlqxkvh5[address] [place] [address]Dr. Chrissy Frazier NM HEPATOBILIARY SCAN W EFon 03-29-2022 NM HEPATOBILIARY SCAN W EF Normal [facility] PROF 14(COMP METB)on 022 Albumin [Mass/Vol] 3.8 g/dL Normal 3.4-5.0 [facility] Comment on above: Performed By: #### C MP ####[facility] Acxnpsoree[address] [place] [address]Dr. Chrissy Frazier Albumin/Globulin [Mass ratio] 1.0 {ratio} Normal [facility] Comment on above: Performed By: #### C MP ####[facility] Lgsdndsemh32[address] [place] [id number]. Tishrowan Frazier ALP [Catalytic activity/Vol] 69 U/L Normal 46-116 [facility] Comment on above: Performed By: #### C MP ####[facility] Diitginvcv3390 [place] [address]Dr. Chrissy Frazier ALT [Catalytic activity/Vol] 117 U/L Critically high 16-63 [facility] Comment on above: Performed By: #### C MP ####[facility] Yfewuypmmb8584 [place] [id number]. Chrissy Frazier Anion gap [Moles/Vol] 16.7 mmol/L Normal [facility] Comment on above: Performed By: #### C MP ####[facility] Qkttfdaybz2202 [place] [id number]. Chrissy Frazier AST [Catalytic activity/Vol] 77 U/L Critically high 15-37 [facility] Comment on above: Performed By: #### C MP ####[facility] Jovyvpbjde5229 [place] [id number]. Chrissy Freddie Bilirubin [Mass/Vol] 1.5 mg/dL Critically high 0.2-1.0 [facility] Comment on above: Performed By: #### C MP ####[facility] Jhupfkonmm40[address] [place] [address]Dr. Tishrowan Freddie Calcium [Mass/Vol] 8.1 mg/dL Critically low 8.5-10.1 [facility] Comment on above: Performed By: #### C MP ####[facility] Vxcgihweqk0987 [place] [address]Dr. Chrissy Freddie Chloride [Moles/Vol] 101 mmol/L Normal 98-107 [facility] Comment on above: Performed By: #### C MP ####[facility] Erbcrskahl9907 [place] [id number]. Chrissy Freddie CO2 [Moles/Vol] 24.5 mmol/L Normal 21.0-32.0 [facility] Comment on above: Performed By: #### C MP ####[facility] Sgvevinmfu2667 [place] [id number]. Chrissy Freddie Creatinine [Mass/Vol] 1.17 mg/dL Normal 0.70-1.30 [facility] Comment on above: Performed By: #### C MP ####[facility] Svipuuuofs49[address] [place] [id number]. Chrissy Freddie EGFR-AF BAHAMIAN >60 Normal >=60 [facility] Comment on above: Performed By: #### C MP ####[facility] Osymxwnymt64[address] [place] [id number]. Chrissy Frazier EGFR-NON AF BAHAMIAN >60 Normal >=60 [facility] Comment on above: Performed By: #### C MP ####[facility] Plwtguasfv1266 [place] [id number]. Chrissy Frazier Globulin (S) [Mass/Vol] 3.9 g/dL Normal [facility] Comment on above: Performed By: #### C MP ####[facility] Ndlifaifnk6358 [place] [address]Dr. Chrissy Frazier Glucose [Mass/Vol] 104 mg/dL Normal 74-106 [facility] Comment on above: Performed By: #### C MP ####[facility] Syqukoyeas80[address] [place] [address]Dr. Chrissy Frazier Potassium [Moles/Vol] 3.2 mmol/L Critically low 3.5-5.1 [facility] Comment on above: Performed By: #### C MP ####[facility] Hpgrtmxmle26[address] [place] [address]Dr. Chrissy Frazier Protein [Mass/Vol] 7.7 g/dL Normal 6.4-8.2 [facility] Comment on above: Performed By: #### C MP ####[facility] Citwqhxnoo7[address] [place] [address]Dr. Chrissy Frazier Sodium [Moles/Vol] 139 mmol/L Normal 136-145 [facility] Comment on above: Performed By: #### C MP ####[facility] Toltvzztkn2383 [place] [address]Dr. Chrissy Frazier Urea nitrogen [Mass/Vol] 11.0 mg/dL Normal 7.0-18.0 [facility] Comment on above: Performed By: #### C MP ####[facility] Uxxywkzzjq6577 [place] [address]Dr. Chrissy Frazier Urea nitrogen/Creatinine [Mass ratio] 9.4 mg/mg Normal [facility] Comment on above: Performed By: #### C MP ####[facility] Zqcymhbmvb8369 [place] [address]Dr. Chrissy Frazier US SINGLE QUAD RT UPPERon US SINGLE QUAD RT UPPER Normal [facility] AMMONIAon 03-28-2022 Ammonia (P) [Moles/Vol] 12 umol/L Normal 11-32 [facility] Comment on above: Performed By: #### A MM ####[facility] Fklhbmnnoy69[address] [place] [address]Dr. Chrissy Frazier CBC AUTO DIFFon 03-28-2022 BASO # 0.0 103/ul Normal 0.0-0.1 [facility] Comment on above: Performed By: #### C BC ####[facility] Uianmtlhbi64[address] [place], [place] [address]Dr. Chrissy Frazier Basophils/100 WBC (Bld) 0.1 % Critically low 0.2-2.0 [facility] Comment on above: Performed By: #### C BC ####[facility] Ntnjgxnown86[address] [place], [place] [address]Dr. Chrissy Frazier EO # 0.0 103/ul Normal 0.0-0.7 [facility] Comment on above: Performed By: #### C BC ####[facility] Cuswbbqqfr[address] [place], [place] [address]Dr. Chrissy Frazier Eosinophils/100 WBC (Bld) 0.0 % Critically low 0.9-7.0 [facility] Comment on above: Performed By: #### C BC ####[facility] Umtwmlaten[address] [place], [place] [address]Dr. Chrissy Frazier Erythrocyte distribution width (RBC) [Ratio] 14.0 % Normal 11.0-15.0 [facility] Comment on above: Performed By: #### C BC ####[facility] Bzmkoyhwli494[address] [place], [place] [address]Dr. Chrissy Frazier Hematocrit (Bld) [Volume fraction] 44.2 % Normal 42.0-54.0 [facility] Comment on above: Performed By: #### C BC ####[facility] Tzjkchuqds00[address] [place], [place] [address]Dr. Chrissy Freddie Hemoglobin (Bld) [Mass/Vol] 14.7 g/dL Normal 14.0-18.0 [facility] Comment on above: Performed By: #### C BC ####[facility] Dnggtiyorf05[address] [place] [address]Dr. Tishrowan Frazier IG # 0.10 10e3/ul Critically high 0.00-0.03 [facility] Comment on above: Performed By: #### C BC ####[facility] Rcerrssvdh9[address] [place] [address]Dr. Chrissy Frazier IG % 0.5 % Normal 0.0-0.5 [facility] Comment on above: Performed By: #### C BC ####[facility] Ysakzyczmz33[address] [place] [address]Dr. Chrissy Frazier LYMPH # 2.6 103/ul Normal 1.2-3.8 [facility] Comment on above: Performed By: #### C BC ####[facility] Hggmujuijw5414 [place] [address]Dr. Chrissy Frazier Lymphocytes/100 WBC (Bld) 13.8 % Critically low 20.5-60.0 [facility] Comment on above: Performed By: #### C BC ####[facility] Tdvzntbjrt8235 [place] [address]Dr. Tishrowan Frazier MANUAL DIFF REQ NO Normal [facility] Comment on above: Performed By: #### C BC ####[facility] Leolquxcsy475[address] [place] [address]Dr. Chrissy Freddie MCH (RBC) [Entitic mass] 29.0 pg Normal 25.9-34.0 [facility] Comment on above: Performed By: #### C BC ####[facility] Jquvhxappf8132 [place] [address]Dr. Chrissy Freddie MCHC (RBC) [Mass/Vol] 33.3 g/dL Normal 29.9-35.2 [facility] Comment on above: Performed By: #### C BC ####[facility] Pyklaqjhcu87[address] [place] [address]Dr. Chrissy Freddie MCV (RBC) [Entitic vol] 87.2 fL Normal 80.0-94.0 [facility] Comment on above: Performed By: #### C BC ####[facility] Ofmeuudwcw4834 [place] [id number]. Chrissy Frazier MONO # 1.1 103/ul Critically high 0.3-0.8 The [facility] Comment on above: Performed By: #### C BC ####[facility] Tciindgfxu1604 [place] [address]Dr. Chrissy Frazier Monocytes/100 WBC (Bld) 5.9 % Normal 1.7-12.0 [facility] Comment on above: Performed By: #### C BC ####[facility] Mgbnmnmkag040[address] [place], [place] [address]Dr. Chrissy Freddie NEUT # 15.1 103/ul Critically high 1.4-6.5 [facility] Comment on above: Performed By: #### C BC ####[facility] Qtpfgcrdax05[address] [place], [place] [address]Dr. Tishrowan Frazier Neutrophils/100 WBC (Bld) 79.7 % Critically high 43.0-75.0 [facility] Comment on above: Performed By: #### C BC ####[facility] Bffqfiayuw1774 [place] [address]Dr. Chrissy Frazier Platelet mean volume (Bld) [Entitic vol] 10.3 fL Normal 9.5-13.5 [facility] Comment on above: Performed By: #### C BC ####[facility] Xbjgckkewp32[address] [place], [place] [address]Dr. Chrissy Frazier PLT 358 103/ul Normal 150-450 [facility] Comment on above: Performed By: #### C BC ####[facility] Pfymbfhxdq[address] [place], [place] [address]Dr. Chrissy Frazier RBC 5.07 106/ul Normal 4.70-6.10 [facility] Comment on above: Performed By: #### C BC ####[facility] Ztxctxkqmm[address] [place], [place] [address]Dr. Chrissy Frazier WBC 18.9 103/ul Critically high 4.0-11.0 [facility] Comment on above: Performed By: #### C BC ####[facility] Lftbproqxb4589 [place] [address]DrNancy Frazier PROF 14(COMP METB)on 022 Albumin [Mass/Vol] 3.9 g/dL Normal 3.4-5.0 [facility] Comment on above: Performed By: #### C MP ####[facility] Hodmrwcfah38[address] [place] [address]Dr. Chrissy Frazier Albumin/Globulin [Mass ratio] 1.1 {ratio} Normal [facility] Comment on above: Performed By: #### C MP ####[facility] Kwzkyqcxgx7568 [place] [address]Dr. Chrissy Frazier ALP [Catalytic activity/Vol] 65 U/L Normal 46-116 [facility] Comment on above: Performed By: #### C MP ####[facility] Bzxetvphaa[address] [place], [place] [address]Dr. Chrissy Frazier ALT [Catalytic activity/Vol] 46 U/L Normal 16-63 [facility] Comment on above: Performed By: #### C MP ####[facility] Rbhqrfuhdh7820[address] [place], [place] [address]Dr. Chrissy Frazier Anion gap [Moles/Vol] 13.2 mmol/L Normal [facility] Comment on above: Performed By: #### C MP ####[facility] Yjdscepspz16[address] [place], [place] [address]DrNancy Frazier AST [Catalytic activity/Vol] 33 U/L Normal 15-37 [facility] Comment on above: Performed By: #### C MP ####[facility] Zhzbgdrcwg1422[address] [place], [place] [address]Dr. Chrissy Frazier Bilirubin [Mass/Vol] 0.8 mg/dL Normal 0.2-1.0 [facility] Comment on above: Performed By: #### C MP ####[facility] Fobgekivlq155[address] [place], [place] [address]Dr. Chrissy Frazier Calcium [Mass/Vol] 8.1 mg/dL Critically low 8.5-10.1 [facility] Comment on above: Performed By: #### C MP ####[facility] Afmmodqnvi1798 [place] [address]Dr. Chrissy Frazier Chloride [Moles/Vol] 102 mmol/L Normal 98-107 [facility] Comment on above: Performed By: #### C MP ####[facility] Weicioozci8721 [place] [address]Dr. Chrissy Frazier CO2 [Moles/Vol] 24.0 mmol/L Normal 21.0-32.0 [facility] Comment on above: Performed By: #### C MP ####[facility] Yxtrxmucxc[address] [place], [place] [address]Dr. Chrissy Frazier Creatinine [Mass/Vol] 1.26 mg/dL Normal 0.70-1.30 [facility] Comment on above: Performed By: #### C MP ####[facility] Viyihnsepa38[address] [place], [place] [address]Dr. Chrissy Frazier EGFR-AF BAHAMIAN >60 Normal >=60 [facility] Comment on above: Performed By: #### C MP ####[facility] Sdlkceadel[address] [place], [place] [address]Dr. Chrissy Frazier EGFR-NON AF BAHAMIAN >60 Normal >=60 [facility] Comment on above: Performed By: #### C MP ####[facility] Kwbyrethop5570 [place] [address]Dr. Chrissy Frazier Globulin (S) [Mass/Vol] 3.7 g/dL Normal [facility] Comment on above: Performed By: #### C MP ####[facility] Ilvdxklvwm0298 [place] [address]Dr. Chrissy Frazier Glucose [Mass/Vol] 119 mg/dL Critically high 74-106 T [facility] Comment on above: Performed By: #### C MP ####[facility] Qbssvzdemw9575 [place] [address]Dr. Chrissy Frazier Potassium [Moles/Vol] 3.2 mmol/L Critically low 3.5-5.1 [facility] Comment on above: Performed By: #### C MP ####[facility] Sncpmajtpy8230 [place] [address]Dr. Chrissy Frazier Protein [Mass/Vol] 7.6 g/dL Normal 6.4-8.2 [facility] Comment on above: Performed By: #### C MP ####[facility] Ceqlezkmga4975 [place] [address]Dr. Chrissy Frazier Sodium [Moles/Vol] 136 mmol/L Normal 136-145 [facility] Comment on above: Performed By: #### C MP ####[facility] Vqwtmyplmo695[address] [place], [place] [address]Dr. Chrissy Frazier Urea nitrogen [Mass/Vol] 14.0 mg/dL Normal 7.0-18.0 [facility] Comment on above: Performed By: #### C MP ####[facility] Cngflpesvr4467[address] [place], [place] [address]Dr. Chrissy Frazier Urea nitrogen/Creatinine [Mass ratio] 11.1 mg/mg Normal [facility] Comment on above: Performed By: #### C MP ####[facility] Dcdwlkbqbp9[address] [place], [place] [address]Dr. Chrissy Freddie CBC W MANUAL DIFFon 03-27-20 22 ATYPICAL LYMPH # Normal [facility] Comment on above: Performed By: #### C BCMAN ####[facility] Njyhzlsuye[address] [place], [place] [address]Dr. Chrissy Frazier ATYPICAL LYMPH % Normal [facility] Comment on above: Performed By: #### C BCMAN ####[facility] Apimtcrofy01[address] [place], [place] [address]Dr. Chrissy Frazier BAND # 0.0 103/ul Normal 0.0-0.3 [facility] Comment on above: Performed By: #### C BCMAN ####[facility] Wqcmwtwmez5409 [place] [address]Dr. Chrissy Frazier BAND % 0 % Normal 0-5 [facility] Comment on above: Performed By: #### C BCMAN ####[facility] Suosutcrgg9704 [place] [id number]. Chrissy Frazier BASOM # 0.00 103/ul Normal 0.00-0.10 [facility] Comment on above: Performed By: #### C BCMAN ####[facility] Mqhwftjofb0157 [place] [id number]. Chrissy Frazier BASOM % 0.0 % Critically low 0.2-2.[address] [facility] Comment on above: Performed By: #### C BCMAN ####[facility] Bxvzvryxej6724 [place] [address]Dr. Chrissy Frazier BLAST # Normal [facility] Comment on above: Performed By: #### C BCLEANDRO ####[facility] Pxextjjfrr5302 [place] [address]Dr. Chrissy Frazier BLAST % Normal [facility] Comment on above: Performed By: #### C BCLEANDRO ####[facility] Vegkhajkhi[address] [place], [place] [address]Dr. Chrissy Frazier CORRECTED WBC Normal 4.0-11.0 [facility] Comment on above: Performed By: #### C BCLEANDRO ####[facility] Lckznneoyj[address] [place], [place] [address]Dr. Chrissy Frazier EOS # 0.00 103/ul Normal 0.00-0.70 [facility] Comment on above: Performed By: #### C BCLEANDRO ####[facility] Dbdscajarl3473 [place] [address]Dr. Chrissy Frazier EOS% 0.0 % Critically low 0.9-7.[address] [facility] Comment on above: Performed By: #### C BCLEANDRO ####[facility] Gxkqijnmtl0749 [place] [address]Dr. Chrissy Frazier HCT 47.3 % Normal 42.0-54.0 [facility] Comment on above: Performed By: #### C BCLEANDRO ####[facility] Xyjzqeswxq41[address] [place], [place] [address]Dr. Chrissy Frazier HGB 16.4 g/dl Normal 14.0-18.0 [facility] Comment on above: Performed By: #### C ANTONETTE ####[facility] Gwlibegsfw2558 [place], [place] [address]Py. Chrissy Frazier LYMPHM # 2.31 103/ul Normal 1.20-3.80 [facility] Comment on above: Performed By: #### Silverio WHITMAN ####[facility] Mjjovxzsie5349 [place], [place] [address]Ud. Chrissy Frazier LYMPHM% 9.0 % Critically low 20.5-60.[address] [facility] Comment on above: Performed By: #### C ANTONETTE ####[facility] Ywzbudczlr9178 [place] [id number]. Chrissy Frazier MCH 28.6 pg Normal 25.9-34.0 [facility] Comment on above: Performed By: #### Silverio WHITMAN ####[facility] Fdzhnoogzi5995 [place] [id number]. Chrissy Frazier MCHC 34.7 g/dl Normal 29.9-35.2 [facility] Comment on above: Performed By: #### Silverio WHITMAN ####[facility] Jybnmmjtlb6818 [place] [id number]. Chrissy Frazier MCV 82.4 fL Normal 80.0-94.0 [facility] Comment on above: Performed By: #### Silverio WHITMAN ####[facility] Brzzzvtsxi9475 [place] [id number]. Chrissy Frazier METAMYELOCYTE # Normal [facility] Comment on above: Performed By: #### Silverio WHITMAN ####[facility] Imdedyasxl3654 [place] [id number]. Chrissy Frazier METAMYELOCYTE % Normal [facility] Comment on above: Performed By: #### C ANTONETTE ####[facility] Aqjpjuwqnz3418 [place] [id number]. Chrissy Frazier MONOM# 3.85 103/ul Critically high 0.30-0.80 [facility] Comment on above: Performed By: #### Silverio WHITMAN ####[facility] Dloltozxvn0977 [place] [id number]. Chrissy Frazier MONOM% 15.0 % Critically high 1.7-12.0 [facility] Comment on above: Performed By: #### C ANTONETTE ####[facility] Gcumjtgjcl8892 [place] [id number]. Chrissy Frazier MPV 10.6 fL Normal 9.5-13.5 [facility] Comment on above: Performed By: #### C ANTONETTE ####[facility] Rarazcybng8768 [place] [id number]. Chrissy Frazier MYELOCYTE # Normal [facility] Comment on above: Performed By: #### C ANTONETTE ####[facility] Mxwrsobmtw4514 [place] [id number]. Chrissy Frazier MYELOCYTE % Normal [facility] Comment on above: Performed By: #### C ANTONETTE ####[facility] Girmrfnvry2414 [place] [id number]. Chrissy Frazier NRBC Normal [facility] Comment on above: Performed By: #### C ANTONETTE ####[facility] Spqkxkuvqr3067 [place] [id number]. Chrissy Frazier PLT 471 103/ul Critically high 150-450 [facility] Comment on above: Performed By: #### C ANTONETTE ####[facility] Shffpjuofk9375 [place] [id number]. Chrissy Frazier RBC 5.74 106/ul Normal 4.70-6.10 [facility] Comment on above: Performed By: #### C ANTONETTE ####[facility] Jucxwstung0266 [place] [id number]. Chrissy Frazier RDW 13.7 % Normal 11.0-15.0 [facility] Comment on above: Performed By: #### C ANTONETTE ####[facility] Wvixpxjtvi5679 [place] [id number]. Chrissy Frazier SEG # 19.53 103/ul Critically high 1.40-6.50 [facility] Comment on above: Performed By: #### C ANTONETTE ####[facility] Vccaredoxc2554 [place] [address]Dr. Tishrowan Frazier SEG % 76.0 % Critically high 43.0-75.0 [facility] Comment on above: Performed By: #### C BCMAN ####[facility] Cyzfoatzol2480 [place] [address]Dr. Tishrowan Frazier TOXIC GRANULATION SLIGHT Normal [facility] Comment on above: Result Comment: few vacoules Performed By: #### C BCLEANDOR ####[facility] Qybwqcwcwm7968 [place] [address]Dr. Chrissy Frazier WBC 25.7 103/ul Critically high 4.0-11.0 [facility] Comment on above: Performed By: #### C ANTONETTE ####[facility] Vletwwhnnx6931 [place] [address]Dr. Chrissy Frazier LACTATE/LACTIC ACIDon 2021 Lactate [Moles/Vol] 2.4 mmol/L Critically high 0.4-1.9 [facility] Comment on above: Performed By: #### L ACT ####[facility] Vmjoughtqj9178 [place] [address]Dr. Chrissy Frazier Lactate [Moles/Vol] 3.5 mmol/L Critically high 0.4-1.9 [facility] Comment on above: Performed By: #### L ACT ####[facility] Goervdthuo7451 [place] [address]Dr. Chrissy Frazier LIPASEon 03-27-2022 Lipase [Catalytic activity/Vol] 43.0 U/L Critically low 73.0-393.0 [facility] Comment on above: Performed By: #### C MP, LIPA ####[facility] Qlviokezrd7473 [place] [address]Dr. Chrissy Frazier PROF 14(COMP METB)on 022 Albumin [Mass/Vol] 4.7 g/dL Normal 3.4-5.0 [facility] Comment on above: Performed By: #### C MP, LIPA ####[facility] Gztmucjbjj9859 [place] [address]Dr. Chrissy Frazier Albumin/Globulin [Mass ratio] 1.1 {ratio} Normal [facility] Comment on above: Performed By: #### C MP, LIPA ####[facility] Vivjulzacv7226 [place] [address]Dr. Chrissy Frazier ALP [Catalytic activity/Vol] 69 U/L Normal 46-116 [facility] Comment on above: Performed By: #### C MP, LIPA ####[facility] Zmggjfcxix5151 [place] [address]Dr. Chrissy Frazier ALT [Catalytic activity/Vol] 47 U/L Normal 16-63 [facility] Comment on above: Performed By: #### C MP, LIPA ####[facility] Nmlrgysvpr167[address] [place], [place] [address]Dr. Chrissy Freddie Anion gap [Moles/Vol] 23.2 mmol/L Normal [facility] Comment on above: Performed By: #### C MP, LIPA ####[facility] Pjamopsffp712[address] [place], [place] [address]Dr. Chrissy Freddie AST [Catalytic activity/Vol] 23 U/L Normal 15-37 [facility] Comment on above: Performed By: #### C MP, LIPA ####[facility] Thvjmsysgq933[address] [place], [place] [address]Dr. Chrissy Freddie Bilirubin [Mass/Vol] 0.7 mg/dL Normal 0.2-1.0 [facility] Comment on above: Performed By: #### C MP, LIPA ####[facility] Dizgnoonka298[address] [place], [place] [address]Dr. Chrissy Freddie Calcium [Mass/Vol] 9.2 mg/dL Normal 8.5-10.1 [facility] Comment on above: Performed By: #### C MP, LIPA ####[facility] Qaydubedrp28[address] [place], [place] [address]Dr. Tishrowan Freddie Chloride [Moles/Vol] 97 mmol/L Critically low 98-107 [facility] Comment on above: Performed By: #### C MP, LIPA ####[facility] Bcbmphgzsl1467[address] [place], [place] [address]Dr. Yirowan Frazier CO2 [Moles/Vol] 18.2 mmol/L Critically low 21.0-32.0 [facility] Comment on above: Performed By: #### C MP, LIPA ####[facility] Nygoehctwo2662 [place] [address]Dr. Chrissy Frazier Creatinine [Mass/Vol] 1.77 mg/dL Critically high 0.70-1.30 [facility] Comment on above: Performed By: #### C MP, LIPA ####[facility] Obbxsgmmgz099[address] [place], [place] [address]Dr. Chrissy Frazier EGFR-AF BAHAMIAN 54 mL/min/1.73m2 Critically low >=60 [facility] Comment on above: Performed By: #### C MP, LIPA ####[facility] Snollvtnmr60[address] [place], [place] [address]Dr. Chrissy Frazier EGFR-NON AF BAHAMIAN 45 mL/min/1.73m2 Critically low >=60 [facility] Comment on above: Performed By: #### C MP, LIPA ####[facility] Qkpmupkrce7922[address] [place], [place] [address]Dr. Chrissy Frazier Globulin (S) [Mass/Vol] 4.4 g/dL Normal [facility] Comment on above: Performed By: #### C MP, LIPA ####[facility] Fjaymuehjq6060[address] [place], [place] [address]Dr. Chrissy Frazier Glucose [Mass/Vol] 131 mg/dL Critically high 74-106 [facility] Comment on above: Performed By: #### C MP, LIPA ####[facility] Wkndoplprh0425[address] [place], [place] [address]Dr. Chrissy Frazier Potassium [Moles/Vol] 3.4 mmol/L Critically low 3.5-5.1 [facility] Comment on above: Performed By: #### C MP, LIPA ####[facility] Wobjryblxl26[address] [place], [place] [address]Dr. Chrissy Frazier Protein [Mass/Vol] 9.1 g/dL Critically high 6.4-8.2 [facility] Comment on above: Performed By: #### C MP, LIPA ####[facility] Hhakgmaczz4214 [place], [place] [address]Tj. Chrissy Frazier Sodium [Moles/Vol] 135 mmol/L Critically low 136-145 [facility] Comment on above: Performed By: #### C MP, LIPA ####[facility] Bztkojtwac2173 [place], [place] [address]Hk. Chrissy Frazier Urea nitrogen [Mass/Vol] 19.0 mg/dL Critically high 7.0-18.0 [facility] Comment on above: Performed By: #### C MANA, LIPA ####[facility] Nevchryouh5328 [place] [id number]. Chrissy Frazier Urea nitrogen/Creatinine [Mass ratio] 10.7 mg/mg Normal [facility] Comment on above: Performed By: #### C MANA, LIPA ####[facility] Fruqydwsbi5882 [place] [id number]. Chrissy Frazier BMPon 11-03-2020 Anion gap [Moles/Vol] 14 mmol/L Normal 6-16 [facility] [place] Comment on above: Performed By: #### 2 [id number], [id number], [id number] #### [facility] [place] [facility] [address] [place] [address] Calcium [Mass/Vol] 9.0 mg/dL Normal 8.9-11.1 [facility] [place] Comment on above: Performed By: #### 2 [id number], [id number], [id number] #### [facility] [place] [facility] [address] [place] [address] Chloride [Moles/Vol] 104 mmol/L Normal 101-111 [facility] [place] Comment on above: Performed By: #### 2 764022, [id number], [id number] #### [facility] [place] [facility] [address] [place] [address] CO2 [Moles/Vol] 21 mmol/L Normal 21-31 [facility] Comment on above: Performed By: #### 2 837226, [id number], [id number] #### [facility] [address] [place] [address] Creatinine [Mass/Vol] 1.3 mg/dL Normal 0.5-1.3 [facility] [place] Comment on above: Performed By: #### 2 909759, [id number], [id number] #### [facility] [place] [facility] [address] [place] [address] Glucose [Mass/Vol] 111 mg/dL Normal 55-199 [facility] [place] Comment on above: Result Comment: If t his glucose result represents a fasting glucose, interpretation should refer to the following reference range: 55-99 mg/dL Performed By: #### 2 [id number], [id number], [id number] #### [facility] [place] [facility] [address] [place] [address] Potassium [Moles/Vol] 2.9 mmol/L Low 3.5-5.3 [facility] [place] Comment on above: Performed By: #### 2 354016, 0790656, [id number] #### [facility] [place] [facility] [address] [place] [address] Sodium [Moles/Vol] 136 mmol/L Normal 135-145 [facility] [place] Comment on above: Performed By: #### 2 417941, 3772922, [id number] #### [facility] [place] [facility] [address] [place] [address] Urea nitrogen [Mass/Vol] 14 mg/dL Normal 5-21 [facility] [place] Comment on above: Performed By: #### 2 557306, 0309586, [id number] #### [facility] [place] [facility] [address] [place] [address] Urea nitrogen/Creatinine [Mass ratio] 11 No Units Normal 10-20 [facility] [place] Comment on above: Performed By: #### 2 192331, 4537002, [id number] #### [facility] [place] [facility] [address] [place] [address] Lipase Levelon 11-03-2020 Lipase [Catalytic activity/Vol] 66 unit/L High 13-58 [facility] [place] Comment on above: Performed By: #### 2 043314, 0297995, [id number] #### [facility] [place] [facility] [address] [place] [address] Physician Orderon 11-03-2020 Physician Order [id number] 3#1.00CD:127 Normal [facility] [place] eGFRon 11-03-2020 GFR/1.73 sq M predicted among blacks MDRD (S/P/Bld) [Vol rate/Area] mL/min/{1.73_m2} Normal >=59 [facility] [place] Comment on above: Order Comment: Order added by Discern Expert. Result Comment: eGFR is race adjusted. AA=. Performed By: #### 2 319071, 8382735, [id number] #### [facility] [place] [facility] [address] [place] [address] GFR/1.73 sq M predicted among non-blacks MDRD (S/P/Bld) [Vol rate/Area] mL/min/{1.73_m2} Normal >=59 [facility] [place] Comment on above: Order Comment: Order added by Discern Expert. Result Comment: Oil Derrick Operator lindsay kidney disease could be indicated at eGFR's of less than 60 mL/min/1.73m2. Kidney failure is indicated at less than 15 mL/min/1.73m2. Performed By: #### 2 059754, 0133604, [id number] #### [facility] [place] [facility] [address] [place] [address] Encounters Encounter Date Encounter Type Care Provider Facility Start: 05-16-2024 End: 05-16-2024 ambulatory TUNG NORTHEIM Not Available Start: 03-07-2024 End: 03-07-2024 ambulatory TUNG NORTHEIM Not Available Start: 03-30-2023 ambulatory Luis Angel Muniz cility:[facility] Start: 01-03-2023 End: 01-04-[address] MELODY MARIO . Facility: Start: 01-03-2023 End: 01-04-2023 ambulatory RAQUEL BANKS Facility:[facility] Start: 12-29-2022 End: 12-30-[address] MELODY MARIO . Facility:[facility] Start: 12-13-2022 End: 12-14-2022 ambulatory [facility] Start: 11-24-2022 End: 11-24-2022 ambulatory [facility] Start: 11-16-2022 End: 11-17-[address] [...] Date Payer Category Payer Self-pay 1990 Unknown [id number] 01.06. [id number] 1990 Unknown [id number] 1990 Unknown [id number] 0.1.800645.3.579.2 1990 Unknown [id number] 0.1.897431.3.579.2593 1990 Unknown [id number] ..[id number] 0.1.649352.3.579.259 1990 Unknown [id number] 2.16.84 0.1.682321.3.579.2.593 1990 Unknown [id number] 2.16.84 0.1.089214.3.579.2.593 1990 Unknown [id number] 2.16.84 0.1.590319.3.579.2.593 1990 Unknown [id number] 2.16.84 0.1.037599.3.579.2.593 1990 Unknown [id number] 2.16.84 0.1.925026.3.579.2.593 1990 Unknown [id number] 2.16.84 0.1.765911.3.579.2.593 1990 Unknown [id number] 2.16.84 0.1.208281.3.579.2.593 1990 Unknown [id number] 2.16.84 0.1.779312.3.579.2.593 1990 Unknown [id number] 2.16.84 0.1.150819.3.579.2.1259 1990 Unknown [id number] 2.16.84 0.1.232946.3.579.2.1259 1959 Private Health Insurance [id number] Unknown [id number] 2.16.8 40.1.720531.3.579.2.531 Progress note 11-24-2022 Note Date & Type [...] factor modification -Plan (more content not included)... [facility] Progress note 11-24-2022 Note Date & [...] All other systems reviewed and are negative. [facility] Summary Purpose Family History No Family [...] section and content) DATE CREATED AUTHOR 11/04/2020 [facility] DATE CREATED AUTHOR AUTHOR'S ORGANIZ ATION 01/08/2023 [facility] DATE CREATED AUTHOR AUTHOR'S ORGANIZ ATION 02/07/2023 [facility] DATE CREATED AUTHOR AUTHOR'S ORGANIZ ATION 04/01/2023 [facility] DATE CREATED AUTHOR AUTHOR'S ORGANIZ ATION 05/17/2024 [facility] FOR RECORDS PERTAINING TO PATIENTS WHO [...] BE BASED ON THE PRIMARY CLINICAL RECORDS. [employer] provides no warranty or guarantee of the accuracy or completeness of information in this document.
--- NOTE | 2024-07-17 09:35 | P.HP_ITS ---
HPI H&P: HPI History of Present Illness Chief complaint: ABD PAIN, CANNABINOID, HYPEREMESIS Narrative: Patient discharged yesterday early afternoon, was able to tolerate breakfast and lunch, increasing abdominal pain and emesis frequently overnight. Marbin presented to the emergency room with increasing abdominal pain. Found of recurrence of his cyclic vomiting syndrome. Is admitted to observation When I saw patient up in the medical surgical floor, he was resting uncomfortably in bed, secondary to the pain. No emesis during the evaluation. Opioid HPI Opioid Management Most Recent Pain and Opioid Data: Last Pain Scale 3 07/17/24 12:26 Last Pain Assessment 07/17/24 12:26 Last MAR Pain Assessment 07/17/24 10:54 Last ORT Total Score 16 07/17/24 08:28 Last ORT Risk Category High Risk 07/17/24 08:28 Ur Phencyclidine Scrn Negative (NEGATIVE) 07/17/24 09:25 Review of Systems ROS Status of ROS 10 or more systems reviewed and unremark able except as noted in history and below [facility] (Updated 07/17/24 @ 06:49 by Marylou Pearson MD) Bipolar disorder (manic depression) ?F31.9 - Bipolar disorder, unspecified (ICD-10) Acquired deformity of right foot ?M21.961 - Unspecified acquired deformity of right lower leg (ICD-10) Displaced fracture of navicular [scaphoid] of right foot, sequela ?S92.251S - Displaced fracture of navicular [scaphoid] of right foot, sequela (ICD-10) Sprain of tarsometatarsal ligament of right foot ?S93.621A - Sprain of tarsometatarsal ligament of right foot, initial encounter (ICD-10) Post-traumatic osteoarthritis, right ankle and foot ?M19.171 - Post-traumatic osteoarthritis, right ankle and foot (ICD-10) Hemangioma ?D18.00 - Hemangioma unspecified site (ICD-10) Ulnar nerve entrapment ?G56.20 - Lesion of ulnar nerve, unspecified upper limb (ICD-10) Bronchitis ?J40 - Bronchitis, not specified as acute or chronic (ICD-10) Foot pain ?M79.673 - Pain in unspecified foot (ICD-10) Esophagitis ?K20.90 - Esophagitis, unspecified without bleeding (ICD-10) Cyclical vomiting ?R11.15 - Cyclical vomiting syndrome unrelated to migraine (ICD-10) Sciatica ?M54.30 - Sciatica, unspecified side (ICD-10) Insomnia ?G47.00 - Insomnia, unspecified (ICD-10) PTSD (post-traumatic stress disorder) ?F43.10 - Post-traumatic stress disorder, unspecified (ICD-10) Panic attacks ?F41.0 - Panic disorder [episodic paroxysmal anxiety] (ICD-10) Depression ?F32.A - Depression, unspecified (ICD-10) Anxiety ?F41.9 - Anxiety disorder, unspecified (ICD-10) Electronic cigarette use ?Z78.9 - Other specified health status (ICD-10) COVID-19 ?U07.1 - COVID-19 (ICD-10) Sleep apnea ?G47.30 - Sleep apnea, unspecified (ICD-10) GERD (gastroesophageal reflux disease) ?K21.9 - Gastro-esophageal reflux disease without esophagitis (ICD-10) Prediabetes ?R73.03 - Prediabetes (ICD-10) Abdominal pain ?R10.9 - Unspecified abdominal pain (ICD-10) Nausea & vomiting ?R11.2 - Nausea with vomiting, unspecified (ICD-10) Surgical History H/O shoulder surgery ?Z98.890 - Other specified postprocedural states (ICD-10) H/O colonoscopy ?Z98.890 - Other specified postprocedural states (ICD-10) History of esophagogastroduodenoscopy (EGD) ?Z98.890 - Other specified postprocedural states (ICD-10) S/P cubital tunnel release ?Z98.890 - Other specified postprocedural states (ICD-10) History of surgical removal of skin lesion ?Z98.890 - Other specified postprocedural states (ICD-10) ?Z87.2 - Personal history of diseases of the skin and subcutaneous tissue (ICD-10) Family History Other Family history of diabetes mellitus Family history of heart disease Family history of hypertension Family history of myocardial infarction Social History Within the past year, how often did you have a drink containing alcohol: never Score interpretation: A score less than 4 is consistent with normal alcohol consumption. Smoking status: Current some day smoker Do you use any of these nicotine containing products: vaping products Non-prescribed substance use: cannabis (any form) Previous occupational history: [employer] Highest level of school completed/degree received: high school graduate Are you now , , , , never or living with a partner: In a typical week, how many times do you talk on the telephone with family, friends, or neighbors: 3 or more times per week How often do you get together with friends or relatives: 3 or more times per week How often do you attend uatsdin or sabianism services: never Do you belong to any clubs or organizations such as uatsdin groups unions, [employer] or athletic groups, or school groups: no Total score: 2 Score interpretation: A score of greater than or equal to 2 indicates the lowest level of social isolation. Little interest or pleasure in doing things: several days Feeling down, depressed, or hopeless: more than half the days Feel stressed/tense/nervous/anxious/difficulty sleeping: to some extent Meds Home Medications and Allergies Home Medications ?Medication ?Instructions ?Recorded ?Confirmed ?Type clonidine HCl 0.1 mg tablet 0.2 mg PO BID 11/17/23 07/17/24 History hydroxyzine pamoate 25 mg capsule 25 mg PO QID PRN anxiety 11/17/23 07/17/24 History lithium carbonate 300 mg capsule 300 mg PO BEDTIME 11/17/23 07/17/24 History propranolol 80 mg tablet 80 mg PO DAILY 11/17/23 03/19/24 History multivitamin (Daily Multi-Vitamin 1 tab PO DAILY 03/09/24 07/17/24 History tablet) ibuprofen 800 mg tablet 800 mg PO Q8H PRN pain 07/16/24 07/17/24 History Allergies Allergy/AdvReac Type Severity Reaction Status Date / Time Penicillins Allergy Severe Unknown Verified 07/17/24 04:19 clarithromycin [From Biaxin] Allergy Unknown Verified 07/17/24 04:19 sulfamethoxazole Allergy unknown Verified 07/17/24 04:19 [From Bactrim] trimethoprim [From Bactrim] Allergy unknown Verified 07/17/24 04:19 Exam Constitutional Vital Signs, click to edit/add: Last Vital Signs Temp 97.7 F 07/17/24 04:20 Pulse 48 L 07/17/24 05:54 Resp 18 07/17/24 05:54 BP 157/88 H 07/17/24 05:54 Pulse Ox 99 07/17/24 05:54 O2 Del Method Room Air 07/17/24 05:54 Documenting provider has reviewed patient's vital signs: yes Common normals: no apparent distress Chest Common normals: inspection of chest normal Respiratory Common normals: normal respiratory effort GI Common normals: Normal to inspection, nondistended, normoactive bowel sounds present and soft to palpation; tender Results Labs Labs: Short CBC 07/17/24 Range/Units 04:28 WBC 16.1 H (4.0-11.0) 10^3/uL Hgb 15.1 (14.0-18.0) g/dL Hct 44.2 (42.0-54.0) % Plt Count 463 H (150-450) 10^3/uL BMP 07/17/24 04:28 Sodium 140 Potassium 3.2 L Chloride 101 Carbon Dioxide 20.3 L BUN 12.0 Creatinine 1.35 H Glucose 132 H Calcium 8.9 Liver Function 07/17/24 Range/Units 04:28 Total Bilirubin 0.6 (0.2-1.0) mg/dL AST 18 (15-37) U/L ALT 38 (16-63) U/L Alkaline Phosphatase 97 (46-116) U/L Albumin 4.1 (3.4-5.0) g/dL Assessment and Plan Assessment and Plan (1) Cannabinoid hyperemesis syndrome: (2) JCARLOS (acute kidney injury): (3) Dehydration: (4) Vomiting: Plan Admission findings: Patient with multiple emesis in ER, unable to control, does have some mild bradycardia but uncontrolled hypertension and leukocytosis with positive lactate and mild elevation of lipase Cyclic vomiting syndrome-Reglan, Levsin, Haldol, Toradol for pain control. Elevated lipase and positive lactate suspect secondary to the hyperemesis as opposed to acute sepsis or acute pancreatitis. Dehydration consistent with his acute elevation in BUN and creatinine compared to previous. Monitor daily. Thrombocythemia consistent with his hyperemesis Follow daily Hypokalemia-supplement, IV dose due to hyperemesis General Anxiety and depression-continue with home medications Hypertension-continue with home medications Admission status: Patient frequently comes in with this and is better in a day so maintain patient observation status. Medically necessary treatment likely to span 1 midnight
[2024-07-17 09:58] LABS: Amylase 65 U/L (25-115)
[2024-07-17 10:00] LABS: Bilirubin Urine NEGATIVE (NEGATIVE); Blood Urine NEGATIVE (NEGATIVE); Clarity Urine CLEAR (CLEAR); Color Urine LT. YELLOW (YELLOW); Glucose Urine UA NEGATIVE (NEGATIVE); Ketones Urine 15 mg/dL (NEGATIVE); Leukocyte Esterase Urine NEGATIVE (NEGATIVE); Nitrite Urine NEGATIVE (NEGATIVE); Protein Urine NEGATIVE (NEG/TRACE); Urobilinogen Urine 0.2 EU/dL (0.2-1.0)
[2024-07-17 10:11] LABS: Amphetamine Screen Urine NEGATIVE (NEGATIVE); Bacteria Urine NONE SEEN #/HPF (NONE SEEN); Barbiturates Screen Urine NEGATIVE (NEGATIVE); Benzodiazepines Screen Urine NEGATIVE (NEGATIVE); Buprenorphine Screen Urine NEGATIVE (NEGATIVE); Cannabinoid Screen Urine POSITIVE (NEGATIVE); Cast Seen? NONE SEEN #/LPF (NONE SEEN); Cocaine Screen Urine NEGATIVE (NEGATIVE); Crystals Seen? None Seen #/HPF (None Seen); Methadone Screen Urine NEGATIVE (NEGATIVE); Methamphetamines Screen Urine NEGATIVE (NEGATIVE); Mucus Urine NONE SEEN (NONE SEEN); Opiate Screen Urine NEGATIVE (NEGATIVE); Oxycodone Screen Urine NEGATIVE (NEGATIVE); Phencyclidine Screen Urine NEGATIVE (NEGATIVE); RBC Urine 0-2 #/HPF (0-2); Squamous Epithelial Cell Urine NONE SEEN #/LPF (NONE/RARE); Tricyclic Antidepressant Urine NEGATIVE (NEGATIVE); Urine Culture Indicated ALREADY ORDERED; WBC Urine NONE SEEN #/HPF (NONE SEEN)
[2024-07-17] MEDS: 0.9 % SODIUM CHLORIDE 1,000 ML 125 ML IV ×2 (10:53→18:55)
[2024-07-17] MEDS: KETOROLAC TROMETHAMINE 30 MG/ML VIAL IVP ×3 (10:54→21:18)
[2024-07-17] MEDS: POTASSIUM CHLORIDE 40 MEQ in 0.9 % SODIUM CHLORIDE 250 ML 67.5 MEQ IV (10:54)
[2024-07-17] MEDS: PANTOPRAZOLE SODIUM 40 MG VIAL IV (10:54)
[2024-07-17] MEDS: HALOPERIDOL LACTATE 5 MG/ML VIAL 1 MG IV ×3 (10:54→21:18)
[2024-07-17] MEDS: CLONIDINE HCL 0.1 MG TABLET 0.2 MG PO (10:54)
[2024-07-17] MEDS: HYOSCYAMINE SULFATE 0.125 MG TAB.SUBL 0.25 MG SL ×3 (12:23→21:17)
[2024-07-17] MEDS: METOCLOPRAMIDE HCL 10 MG/2 ML VIAL IVP ×2 (12:23→17:11)
[2024-07-17] MEDS: LITHIUM CARBONATE 150 MG CAPSULE 300 MG PO (21:17)
[2024-07-18] MEDS: METOCLOPRAMIDE HCL 10 MG/2 ML VIAL IVP ×2 (00:09→05:01)
[2024-07-18 00:14] VITALS: BP 115/70; PULSE 86; TEMP 36.6; O2SAT 98
[2024-07-18] MEDS: 0.9 % SODIUM CHLORIDE 1,000 ML 125 ML IV (02:51)
[2024-07-18] MEDS: HYOSCYAMINE SULFATE 0.125 MG TAB.SUBL 0.25 MG SL (05:00)
[2024-07-18] MEDS: HALOPERIDOL LACTATE 5 MG/ML VIAL 1 MG IV (05:01)
[2024-07-18] MEDS: KETOROLAC TROMETHAMINE 30 MG/ML VIAL IVP (05:01)
[2024-07-18 05:08] VITALS: BP 111/65; PULSE 56; TEMP 36.8; O2SAT 96
[2024-07-18 05:11] VITALS: O2SAT 96
[2024-07-18 05:56] LABS: Basophils Absolute Auto 0.1 10^3/uL (0.0-0.1); Basophils Percent Auto 0.4 % (0.2-2.0); Eosinophils Absolute Auto 0.2 10^3/uL (0.0-0.7); Eosinophils Percent Auto 1.7 % (0.9-7.0); Hemoglobin 13.5 g/dL (14.0-18.0); Immature Granulocytes Abs Auto 0.03 10^3/uL (0.00-0.03); Immature Granulocytes Pct Auto 0.2 % (0.0-0.5); Lymphocytes Absolute Auto 4.1 10^3/uL (1.2-3.8); Lymphocytes Percent Auto 31.7 % (20.5-60.0); Mean Corpuscular HGB Conc 33.8 g/dL (29.9-35.2); Mean Corpuscular Hemoglobin 28.7 pg (25.9-34.0); Mean Corpuscular Volume 85.1 fL (80.0-94.0); Mean Platelet Volume 10.1 fL (9.5-13.5); Monocytes Absolute Auto 0.7 10^3/uL (0.3-0.8); Monocytes Percent Auto 5.7 % (1.7-12.0); Neutrophils Absolute Auto 7.8 10^3/uL (1.4-6.5); Neutrophils Percent Auto 60.3 % (43.0-75.0); Platelet Count 266 10^3/uL (150-450); Red Cell Distribution Width 13.6 % (11.0-15.0); White Blood Count 12.9 10^3/uL (4.0-11.0)
[2024-07-18 06:15] LABS: Alanine Aminotransferase 35 U/L (16-63); Albumin Level 3.2 g/dL (3.4-5.0); Alkaline Phosphatase 76 U/L (46-116); Amylase 29 U/L (25-115); Anion Gap 11.3; Aspartate Amino Transferase 19 U/L (15-37); BUN Creatinine Ratio 8.4; Bilirubin Total 0.5 mg/dL (0.2-1.0); Calcium 8.1 mg/dL (8.5-10.1); Carbon Dioxide 28.1 mmol/L (21.0-32.0); Chloride 105 mmol/L (98-107); Estimated GFR (African America >60 (>=60); Estimated GFR (Non-African Ame >60 (>=60); Globulin 3.2 g/dL; Glucose 107 mg/dL (74-106); Potassium 3.4 mmol/L (3.5-5.1); Sodium 141 mmol/L (136-145); Total Protein 6.4 g/dL (6.4-8.2)
--- NOTE | 2024-07-18 07:45 | P.DS_ITS ---
DS: Providers Provider Date of admission: 07/17/24 08:10 Primary care physician: Janes Mario MD DS: Diagnosis Discharge Diagnosis (1) Cannabinoid hyperemesis syndrome: (2) JCARLOS (acute kidney injury): (3) Dehydration: (4) Vomiting: Plan Admission findings: Patient with multiple emesis in ER, unable to control, does have some mild bradycardia but uncontrolled hypertension and leukocytosis with positive lactate and mild elevation of lipase Cyclic vomiting syndrome-improving at the time of discharge Elevated lipase and positive lactate suspect secondary to the hyperemesis as opposed to acute sepsis or acute pancreatitis.-Resolved at the time of discharge Dehydration consistent with his acute elevation in BUN and creatinine compared to previous. Resolved with time of discharge Thrombocythemia consistent with his hyperemesis - resolved at the time of discharge Hypokalemia-supplement, IV dose due to hyperemesis-improving at the time of discharge General Anxiety and depression-stable at discharge Hypertension-improved at the time of discharge Admission status: Patient frequently comes in with this and is better in a day so maintain patient observation status. Medically necessary treatment likely to span 1 midnight ? DS: Summary Hospital Course Hospital Course: Patient with a recurrent admission for cyclic vomiting syndrome was just discharged 1 day prior. Given the usual cocktail of Reglan, Haldol, Levsin, Protonix, Toradol. Pain is much improved this morning. He was able to eat overnight. The plan is if he tolerates breakfast he can be discharged home in improving condition. Medications see list. Follow-up with me in the office within this week or next. Status at Discharge Overall status at discharge: patient is back to baseline Time Spent with Patient Time attestation: Total time spent providing and/or coordinating discharge services: Time spent: greater than 30 minutes Exam Constitutional Vital Signs, click to edit/add: Last Vital Signs Temp 98.3 F 07/18/24 05:08 Pulse 56 L 07/18/24 05:08 Resp 18 07/18/24 05:08 BP 111/65 07/18/24 05:08 Pulse Ox 96 07/18/24 05:11 O2 Del Method Room Air 07/18/24 05:11 Documenting provider has reviewed patient's vital signs: yes Common normals: no apparent distress Chest Common normals: inspection of chest normal Respiratory Common normals: normal respiratory effort GI Common normals: Normal to inspection, nondistended, normoactive bowel sounds present and soft to palpation; tender (Minimal tenderness) DS: Data Data Completed and Pending Labs on day of discharge: Labs from last 24 hours 07/18/24 07/17/24 07/17/24 05:47 09:25 07:30 WBC 12.9 H RBC 4.70 Hgb 13.5 L Hct 40.0 L MCV 85.1 MCH 28.7 MCHC 33.8 RDW 13.6 Plt Count 266 MPV 10.1 Neut % (Auto) 60.3 Lymph % (Auto) 31.7 Bertie % (Auto) 5.7 Eos % (Auto) 1.7 Baso % (Auto) 0.4 Neut # (Auto) 7.8 H Lymph # (Auto) 4.1 H Bertie # (Auto) 0.7 Eos # (Auto) 0.2 Baso # (Auto) 0.1 Abs Immat Gran (auto) 0.03 Imm/Tot Granulo (auto) 0.2 Sodium 141 Potassium 3.4 L Chloride 105 Carbon Dioxide 28.1 Anion Gap 11.3 BUN 9.0 Creatinine 1.07 Est GFR ( Amer) >60 Est GFR (Non-Af Amer) >60 BUN/Creatinine Ratio 8.4 Glucose 107 H Lactate 1.8 Calcium 8.1 L Total Bilirubin 0.5 AST 19 ALT 35 Alkaline Phosphatase 76 Total Protein 6.4 Albumin 3.2 L Globulin 3.2 Albumin/Globulin Ratio 1.0 Amylase 29 Lipase 22.0 Urine Color Lt. yellow Urine Clarity Clear Urine pH 7.0 Ur Specific [place] 1.010 Urine Protein Negative Urine Glucose (UA) Negative Urine Ketones 15 A Urine Occult Blood Negative Urine Nitrite Negative Urine Bilirubin Negative Urine Urobilinogen 0.2 Ur Leukocyte Esterase Negative Urine RBC 0-2 Urine WBC None seen Ur Squamous Epith Cells None seen Urine Crystals None seen Urine Bacteria None seen Urine Casts None seen Urine Mucus None seen Ur Culture Indicated? Already ordered Urine Opiates Screen Negative Ur Buprenorphine Scrn Negative Ur Oxycodone Screen Negative Urine Methadone Screen Negative Ur Barbiturates Screen Negative U Tricyclic Antidepress Negative Ur Phencyclidine Scrn Negative Ur Amphetamines Screen Negative U Methamphetamines Scrn Negative U Benzodiazepines Scrn Negative Urine Cocaine Screen Negative U Cannabinoids Screen Positive A 07/17/24 04:28 WBC RBC Hgb Hct MCV MCH MCHC RDW Plt Count MPV Neut % (Auto) Lymph % (Auto) Bertie % (Auto) Eos % (Auto) Baso % (Auto) Neut # (Auto) Lymph # (Auto) Bertie # (Auto) Eos # (Auto) Baso # (Auto) Abs Immat Gran (auto) Imm/Tot Granulo (auto) Sodium Potassium Chloride Carbon Dioxide Anion Gap BUN Creatinine Est GFR ( Amer) Est GFR (Non-Af Amer) BUN/Creatinine Ratio Glucose Lactate Calcium Total Bilirubin AST ALT Alkaline Phosphatase Total Protein Albumin Globulin Albumin/Globulin Ratio Amylase 65 Lipase Urine Color Urine Clarity Urine pH Ur Specific [place] Urine Protein Urine Glucose (UA) Urine Ketones Urine Occult Blood Urine Nitrite Urine Bilirubin Urine Urobilinogen Ur Leukocyte Esterase Urine RBC Urine WBC Ur Squamous Epith Cells Urine Crystals Urine Bacteria Urine Casts Urine Mucus Ur Culture Indicated? Urine Opiates Screen Ur Buprenorphine Scrn Ur Oxycodone Screen Urine Methadone Screen Ur Barbiturates Screen U Tricyclic Antidepress Ur Phencyclidine Scrn Ur Amphetamines Screen U Methamphetamines Scrn U Benzodiazepines Scrn Urine Cocaine Screen U Cannabinoids Screen Discharge Plan Discharge Disposition: Home, Self-Care Discharge Medications: Continued clonidine HCl 0.1 mg tablet 0.2 mg PO BID hydroxyzine pamoate 25 mg capsule 25 mg PO QID PRN (Reason: anxiety) lithium carbonate 300 mg capsule 300 mg PO BEDTIME multivitamin [Daily Multi-Vitamin] Tablet 1 tab PO DAILY propranolol [Inderal LA] 80 mg capsule,extended release 24 hr 80 mg PO DAILY ibuprofen 800 mg tablet 800 mg PO Q8H PRN (Reason: pain) Print Language: Amharic Forms: Portal Instructions
[2024-07-18 07:56] VITALS: BP 132/77; PULSE 61; TEMP 36.3; O2SAT 98
[2024-07-18 15:09] LABS: Lithium (Eskalith(R)), Serum <0.1 mmol/L (0.5-1.2)
--- NOTE | 2024-07-20 13:48 | CM.DCFOLLOWU ---
Person spoke with:patient How are you feeling? still vomiting and nausea How is your pain? still pain Did you understand your discharge instructions? yes Do you have any questions about your discharge instructions? no Were you given any prescriptions at discharge? no Were you able to get your prescriptions filled? N/A Do you understand how to take your medications as ordered?yes Do you have any questions about your follow up appointment and do you plan to keep your follow up appointment? no questions, will call Hoy's office to schedule follow up Is there anything else that you would like to discuss? no Questions/Comments/Concerns/Other: none
== END 2024-07-18 08:45 | disposition home or self-care (01) ==
LOC: ER 08:05 → MS 08:14
PROVIDERS: Admitting Provider Family Medicine; Emergency Provider Emergency Medicine; PCP Family Medicine; Visit Provider Family Medicine
DX: R11.15 Cyclical vomiting syndrome unrelated to migraine (principal); E86.0 Dehydration; F12.90 Cannabis use, unspecified, uncomplicated; D75.839 Thrombocytosis, unspecified; R00.1 Bradycardia, unspecified; I10 Essential (primary) hypertension; D72.829 Elevated white blood cell count, unspecified; E87.6 Hypokalemia; F41.1 Generalized anxiety disorder; F32.A Depression, unspecified; R74.8 Abnormal levels of other serum enzymes; R79.89 Other specified abnormal findings of blood chemistry; F17.290 Nicotine dependence, other tobacco product, uncomplicated
CPT/HCPCS: 36415; 74177; 80053; 80178; 80307; 81001; 82150; 83605; 83690; 84484; 85025; 87086; 93005; 94761; 96361; 96365; 96366; 96367; 96372; 96375; 96376; 99285; G0378; J0500; J1630; J1885; J2250; J2405; J2765; J3480; Q9967

== ENCOUNTER 2024-07-21 01:40 | Emergency (ER) | payer OTHER, SELFPAY ==
[2024-07-21 02:00] VITALS: PULSE 74; TEMP 37.1; O2SAT 100; BMI 38.7
--- NOTE | 2024-07-21 02:09 | ED_ITS ---
HPI - Nausea/Vomiting/Diarrhea General Chief complaint: Nausea/Vomiting/Diarrhea Stated complaint: VOMITING Time Seen by Provider: 07/21/24 02:05 Mode of arrival: walk-in Limitations: no limitations History of Present Illness HPI Narrative: history of cannabinoid hyperemesis syndrome. States he has not smoked marijuana in 2 weeks. Vomited last about 4PM. Presents complaining of abdominal cramping pain. No diarrhea Related Data Home Medications ?Medication ?Instructions ?Recorded ?Confirmed clonidine HCl 0.1 mg tablet 0.2 mg PO BID 11/17/23 07/17/24 hydroxyzine pamoate 25 mg capsule 25 mg PO QID PRN anxiety 11/17/23 07/17/24 lithium carbonate 300 mg capsule 300 mg PO BEDTIME 11/17/23 07/17/24 multivitamin (Daily Multi-Vitamin 1 tab PO DAILY 03/09/24 07/17/24 tablet) ibuprofen 800 mg tablet 800 mg PO Q8H PRN pain 07/16/24 07/17/24 propranolol 80 mg capsule,24 80 mg PO DAILY 07/17/24 07/17/24 hr,extended release (Inderal LA) Allergies Allergy/AdvReac Type Severity Reaction Status Date / Time Penicillins Allergy Severe Unknown Verified 07/21/24 02:04 clarithromycin [From Biaxin] Allergy Unknown Verified 07/21/24 02:04 sulfamethoxazole Allergy unknown Verified 07/21/24 02:04 [From Bactrim] trimethoprim [From Bactrim] Allergy unknown Verified 07/21/24 02:04 [facility] Medical History (Updated 07/21/24 @ 05:05 by Griffin Juárez MD) JCARLOS (acute kidney injury) ?N17.9 - Acute kidney failure, unspecified (ICD-10) Dehydration ?E86.0 - Dehydration (ICD-10) Bipolar disorder (manic depression) ?F31.9 - Bipolar disorder, unspecified (ICD-10) Acquired deformity of right foot ?M21.961 - Unspecified acquired deformity of right lower leg (ICD-10) Displaced fracture of navicular [scaphoid] of right foot, sequela ?S92.251S - Displaced fracture of navicular [scaphoid] of right foot, sequela (ICD-10) Sprain of tarsometatarsal ligament of right foot ?S93.621A - Sprain of tarsometatarsal ligament of right foot, initial encounter (ICD-10) Post-traumatic osteoarthritis, right ankle and foot ?M19.171 - Post-traumatic osteoarthritis, right ankle and foot (ICD-10) Hemangioma ?D18.00 - Hemangioma unspecified site (ICD-10) Ulnar nerve entrapment ?G56.20 - Lesion of ulnar nerve, unspecified upper limb (ICD-10) Bronchitis ?J40 - Bronchitis, not specified as acute or chronic (ICD-10) Foot pain ?M79.673 - Pain in unspecified foot (ICD-10) Esophagitis ?K20.90 - Esophagitis, unspecified without bleeding (ICD-10) Cyclical vomiting ?R11.15 - Cyclical vomiting syndrome unrelated to migraine (ICD-10) Sciatica ?M54.30 - Sciatica, unspecified side (ICD-10) Insomnia ?G47.00 - Insomnia, unspecified (ICD-10) PTSD (post-traumatic stress disorder) ?F43.10 - Post-traumatic stress disorder, unspecified (ICD-10) Panic attacks ?F41.0 - Panic disorder [episodic paroxysmal anxiety] (ICD-10) Depression ?F32.A - Depression, unspecified (ICD-10) Anxiety ?F41.9 - Anxiety disorder, unspecified (ICD-10) Electronic cigarette use ?Z78.9 - Other specified health status (ICD-10) COVID-19 ?U07.1 - COVID-19 (ICD-10) Sleep apnea ?G47.30 - Sleep apnea, unspecified (ICD-10) GERD (gastroesophageal reflux disease) ?K21.9 - Gastro-esophageal reflux disease without esophagitis (ICD-10) Prediabetes ?R73.03 - Prediabetes (ICD-10) Abdominal pain ?R10.9 - Unspecified abdominal pain (ICD-10) Nausea & vomiting ?R11.2 - Nausea with vomiting, unspecified (ICD-10) Surgical History H/O shoulder surgery ?Z98.890 - Other specified postprocedural states (ICD-10) H/O colonoscopy ?Z98.890 - Other specified postprocedural states (ICD-10) History of esophagogastroduodenoscopy (EGD) ?Z98.890 - Other specified postprocedural states (ICD-10) S/P cubital tunnel release ?Z98.890 - Other specified postprocedural states (ICD-10) History of surgical removal of skin lesion ?Z98.890 - Other specified postprocedural states (ICD-10) ?Z87.2 - Personal history of diseases of the skin and subcutaneous tissue (ICD-10) Family History Other Family history of diabetes mellitus Family history of heart disease Family history of hypertension Family history of myocardial infarction Social History Within the past year, how often did you have a drink containing alcohol: never Score interpretation: A score less than 4 is consistent with normal alcohol consumption. Smoking status: Current some day smoker Do you use any of these nicotine containing products: vaping products Non-prescribed substance use: cannabis (any form) Previous occupational history: [employer] Highest level of school completed/degree received: high school graduate Are you now , , , , never or living with a partner: In a typical week, how many times do you talk on the telephone with family, friends, or neighbors: 3 or more times per week How often do you get together with friends or relatives: 3 or more times per week How often do you attend jainism or moravian services: never Do you belong to any clubs or organizations such as jainism groups unions, fraternal or athletic groups, or school groups: no Total score: 2 Score interpretation: A score of greater than or equal to 2 indicates the lowest level of social isolation. Little interest or pleasure in doing things: several days Feeling down, depressed, or hopeless: more than half the days Feel stressed/tense/nervous/anxious/difficulty sleeping: to some extent Exam Constitutional Vital Signs, click to edit/add: Last Vital Signs Temp 98.8 F 07/21/24 02:00 Pulse 74 07/21/24 02:00 Resp 18 07/21/24 02:00 BP 140/80 07/21/24 03:00 Pulse Ox 100 07/21/24 02:00 O2 Del Method Room Air 07/21/24 02:00 Course Vital Signs Vital signs: Vital Signs Temperature 98.8 F 07/21/24 02:00 Pulse Rate 74 07/21/24 02:00 Respiratory Rate 18 07/21/24 02:00 Pulse Oximetry 100 07/21/24 02:00 Oxygen Delivery Method Room Air 07/21/24 02:00 Temperature 98.8 F 07/21/24 02:00 Pulse Rate 74 07/21/24 02:00 Respiratory Rate 18 07/21/24 02:00 Blood Pressure 140/80 07/21/24 03:00 Pulse Oximetry 100 07/21/24 02:00 Oxygen Delivery Method Room Air 07/21/24 02:00 MDM - Nausea/Vomiting/Diarrhea MDM Narrative Medical decision making narrative: past history of cannabinoid hyperemesis syndrome. Presents with nausea and abdominal cramping. labs with leukocytosis and elevated creat at 1.48. Lactic elevated. Patient hydrated with 3L NS. Medicated with anti emetics, toradol and bentyl. Feeling better at discharged. Abdominal xray without signs of obstruction. Patient has zofran at home. Discharged to follow up with his doctor Lab Data Labs: Lab Results 07/21/24 07/21/24 Range/Units 02:15 04:15 WBC 17.4 H (4.0-11.0) 10^3/uL RBC 5.39 (4.70-6.10) 10^6/uL Hgb 15.5 (14.0-18.0) g/dL Hct 44.3 (42.0-54.0) % MCV 82.2 (80.0-94.0) fL MCH 28.8 (25.9-34.0) pg MCHC 35.0 (29.9-35.2) g/dL RDW 13.8 (11.0-15.0) % Plt Count 395 (150-450) 10^3/uL MPV 10.5 (9.5-13.5) fL Neut % (Auto) 74.8 (43.0-75.0) % Lymph % (Auto) 18.3 L (20.5-60.0) % Pratt % (Auto) 6.2 (1.7-12.0) % Eos % (Auto) 0.2 L (0.9-7.0) % Baso % (Auto) 0.2 (0.2-2.0) % Neut # (Auto) 13.0 H (1.4-6.5) 10^3/uL Lymph # (Auto) 3.2 (1.2-3.8) 10^3/uL Pratt # (Auto) 1.1 H (0.3-0.8) 10^3/uL Eos # (Auto) 0.0 (0.0-0.7) 10^3/uL Baso # (Auto) 0.0 (0.0-0.1) 10^3/uL Abs Immat Gran (auto) 0.06 H (0.00-0.03) 10^3/uL Imm/Tot Granulo (auto) 0.3 (0.0-0.5) % Sodium 137 (136-145) mmol/L Potassium 3.0 L (3.5-5.1) mmol/L Chloride 99 (98-107) mmol/L Carbon Dioxide 24.2 (21.0-32.0) mmol/L Anion Gap 16.8 BUN 13.0 (7.0-18.0) mg/dL Creatinine 1.48 H (0.70-1.30) mg/dL Est GFR ( Amer) >60 (>=60) Est GFR (Non-Af Amer) 54 L (>=60) BUN/Creatinine Ratio 8.8 Glucose 131 H (74-106) mg/dL Lactate 2.2 H* (0.4-2.0) mmol/L Calcium 9.0 (8.5-10.1) mg/dL Total Bilirubin 0.9 (0.2-1.0) mg/dL AST 16 (15-37) U/L ALT 45 (16-63) U/L Alkaline Phosphatase 91 (46-116) U/L Total Protein 7.8 (6.4-8.2) g/dL Albumin 4.3 (3.4-5.0) g/dL Globulin 3.5 g/dL Albumin/Globulin Ratio 1.2 Urine Color Lt. yellow (YELLOW) Urine Clarity Clear (CLEAR) Urine pH 7.0 (5.0-9.0) Ur Specific [place] <=1.005 A (1.005-1.025) Urine Protein Negative (NEG/TRACE) mg/dL Urine Glucose (UA) Negative (NEGATIVE) mg/dL Urine Ketones 15 A (NEGATIVE) mg/dL Urine Occult Blood Negative (NEGATIVE) Urine Nitrite Negative (NEGATIVE) Urine Bilirubin Negative (NEGATIVE) Urine Urobilinogen 0.2 (0.2-1.0) EU/dL Ur Leukocyte Esterase Negative (NEGATIVE) Urine Opiates Screen Negative (NEGATIVE) Ur Buprenorphine Scrn Negative (NEGATIVE) Ur Oxycodone Screen Negative (NEGATIVE) Urine Methadone Screen Negative (NEGATIVE) Ur Barbiturates Screen Negative (NEGATIVE) U Tricyclic Antidepress Negative (NEGATIVE) Ur Phencyclidine Scrn Negative (NEGATIVE) Ur Amphetamines Screen Negative (NEGATIVE) U Methamphetamines Scrn Negative (NEGATIVE) U Benzodiazepines Scrn Negative (NEGATIVE) Urine Cocaine Screen Negative (NEGATIVE) U Cannabinoids Screen Positive A (NEGATIVE) Discharge Plan Discharge Stand Alone Forms: Work/School Release, Portal Instructions Chief Complaint: Nausea/Vomiting/Diarrhea Clinical Impression: Cannabinoid hyperemesis syndrome Patient Disposition: Home, Self-Care Time of Disposition Decision: 05:15 Prescriptions / Home Meds: No Action clonidine HCl 0.1 mg tablet 0.2 mg PO BID hydroxyzine pamoate 25 mg capsule 25 mg PO QID PRN (Reason: anxiety) lithium carbonate 300 mg capsule 300 mg PO BEDTIME multivitamin [Daily Multi-Vitamin] Tablet 1 tab PO DAILY propranolol [Inderal LA] 80 mg capsule,extended release 24 hr 80 mg PO DAILY ibuprofen 800 mg tablet 800 mg PO Q8H PRN (Reason: pain) Print Language: Azerbaijani Instructions: Cannabis Use Disorder (ED) Referrals: Janes Mario MD [Primary Care Provider] - 1 week Discharge Date/Time: 07/21/24 05:15
--- NOTE | 2024-07-21 02:12 | XR_ITS ---
The [address] [address] Patient Name: PAULINA CHARLES MRN: [id number] date: 1990 Sex: M Assigned Patient Location: ER Current Patient Location: ER Accession/Order Number: [id number] Exam Date: 07/21/2024 02:52 Report Date: 07/21/2024 04:04 At the request of: SHYANN CM Procedure: XR abdomen min 2V EXAM: XR abdomen min 2V HISTORY: abdominal pain COMPARISON: None. TECHNIQUE: 2 views of the abdomen were obtained. FINDINGS: There is a nonspecific bowel gas pattern without evidence of bowel obstruction. No intraperitoneal free air is seen. No acute osseous abnormality is seen. The lung bases are clear. XR/XR abdomen min 2V IMPRESSION: 1. Nonspecific bowel gas pattern without evidence of bowel obstruction. Electronically authenticated by: Troy VALLECILLO Date: 07/21/2024 04:04
[2024-07-21 02:21] LABS: Basophils Percent Auto 0.2 % (0.2-2.0); Eosinophils Percent Auto 0.2 % (0.9-7.0); Hematocrit 44.3 % (42.0-54.0); Hemoglobin 15.5 g/dL (14.0-18.0); Immature Granulocytes Abs Auto 0.06 10^3/uL (0.00-0.03); Immature Granulocytes Pct Auto 0.3 % (0.0-0.5); Lymphocytes Absolute Auto 3.2 10^3/uL (1.2-3.8); Lymphocytes Percent Auto 18.3 % (20.5-60.0); Mean Corpuscular Hemoglobin 28.8 pg (25.9-34.0); Mean Corpuscular Volume 82.2 fL (80.0-94.0); Mean Platelet Volume 10.5 fL (9.5-13.5); Monocytes Absolute Auto 1.1 10^3/uL (0.3-0.8); Monocytes Percent Auto 6.2 % (1.7-12.0); Neutrophils Percent Auto 74.8 % (43.0-75.0); Platelet Count 395 10^3/uL (150-450); Red Blood Count 5.39 10^6/uL (4.70-6.10); Red Cell Distribution Width 13.8 % (11.0-15.0); White Blood Count 17.4 10^3/uL (4.0-11.0)
--- NOTE | 2024-07-21 02:25 | PC.NURSE ---
Pt reports acid reflux pain and lower mid abd cramping. Pt reports unable to eat without vomiting, able to drink fluids after taking nausea meds at home.
[2024-07-21] MEDS: 0.9 % SODIUM CHLORIDE 1,000 ML 999 ML IV ×2 (02:29→04:04)
[2024-07-21] MEDS: DICYCLOMINE HCL 20 MG/2 ML VIAL IM (02:30)
[2024-07-21 02:36] LABS: Alanine Aminotransferase 45 U/L (16-63); Albumin Globulin Ratio 1.2; Albumin Level 4.3 g/dL (3.4-5.0); Alkaline Phosphatase 91 U/L (46-116); Anion Gap 16.8; Aspartate Amino Transferase 16 U/L (15-37); BUN Creatinine Ratio 8.8; Bilirubin Total 0.9 mg/dL (0.2-1.0); Carbon Dioxide 24.2 mmol/L (21.0-32.0); Chloride 99 mmol/L (98-107); Estimated GFR (African America >60 (>=60); Estimated GFR (Non-African Ame 54 (>=60); Globulin 3.5 g/dL; Glucose 131 mg/dL (74-106); Sodium 137 mmol/L (136-145); Total Protein 7.8 g/dL (6.4-8.2)
[2024-07-21 02:41] LABS: Lactate/Lactic Acid 2.2 mmol/L (0.4-2.0)
[2024-07-21 03:00] VITALS: BP 140/80
[2024-07-21] MEDS: KETOROLAC TROMETHAMINE 30 MG/ML VIAL IVP (03:35)
[2024-07-21] MEDS: METOCLOPRAMIDE HCL 10 MG/2 ML VIAL IVP (03:36)
[2024-07-21] MEDS: DIPHENHYDRAMINE HCL 50 MG/ML VIAL IV (03:36)
[2024-07-21 04:23] LABS: Bilirubin Urine NEGATIVE (NEGATIVE); Blood Urine NEGATIVE (NEGATIVE); Clarity Urine CLEAR (CLEAR); Color Urine LT. YELLOW (YELLOW); Glucose Urine UA NEGATIVE (NEGATIVE); Ketones Urine 15 mg/dL (NEGATIVE); Leukocyte Esterase Urine NEGATIVE (NEGATIVE); Nitrite Urine NEGATIVE (NEGATIVE); Protein Urine NEGATIVE (NEG/TRACE); Specific Gravity Urine <=1.005 (1.005-1.025); Urobilinogen Urine 0.2 EU/dL (0.2-1.0)
[2024-07-21 04:27] LABS: Urine Microscopic Indicated NO
[2024-07-21 04:31] LABS: Amphetamine Screen Urine NEGATIVE (NEGATIVE); Barbiturates Screen Urine NEGATIVE (NEGATIVE); Benzodiazepines Screen Urine NEGATIVE (NEGATIVE); Buprenorphine Screen Urine NEGATIVE (NEGATIVE); Cannabinoid Screen Urine POSITIVE (NEGATIVE); Cocaine Screen Urine NEGATIVE (NEGATIVE); Methadone Screen Urine NEGATIVE (NEGATIVE); Methamphetamines Screen Urine NEGATIVE (NEGATIVE); Opiate Screen Urine NEGATIVE (NEGATIVE); Oxycodone Screen Urine NEGATIVE (NEGATIVE); Phencyclidine Screen Urine NEGATIVE (NEGATIVE); Tricyclic Antidepressant Urine NEGATIVE (NEGATIVE)
--- NOTE | 2024-07-21 05:18 | PC.NURSE ---
Pt provided discharge instructions . here to pickle cutter pt for discharge via personal vehicle.
== END 2024-07-21 05:15 | disposition home or self-care (01) ==
PROVIDERS: Emergency Provider Internal Medicine; PCP Family Medicine
DX: R11.2 Nausea with vomiting, unspecified (principal); F12.90 Cannabis use, unspecified, uncomplicated; F17.290 Nicotine dependence, other tobacco product, uncomplicated
CPT/HCPCS: 36415; 74019; 80053; 80307; 81003; 83605; 85025; 96361; 96372; 96374; 96375; 99284; J0500; J1200; J1885; J2765

== ENCOUNTER 2024-07-23 02:12 | Emergency (ER) | payer OTHER, SELFPAY ==
[2024-07-23 02:19] VITALS: BP 153/130; PULSE 98; TEMP 36.4; O2SAT 100; BMI 39.5
--- OUTSIDE RECORDS SUMMARY | 2024-07-23 02:24 | XMS_ITS | CCD ---
Author Organization [facility] Care Team Providers Care Traffic Control Technician Name Role Phone RAQUEL BANKS Referring Unavailable [...] to adverse reactions to drug (disorder) 09-28-20 [facility] Repository (1 source) Sulfamethoxazole / Trimethoprim; Translations: [SULFAMETHOXAZOLE-TR IMETHOPRIM] Drug Allergy 01-27-20 [facility] Repository (1 source) Clarithromycin Drug Allergy [facility] Repository (1 source) Sulfamethoxazole / Trimethoprim Drug Allergy 05-27-20 17 [facility] Repository (1 source) Sulfamethoxazole Drug Allergy 03-20-20 [facility] Repository (1 source) Trimethoprim Drug Allergy 03-20-20 [facility] Repository Problems Active Problems Problem Classification [...] Episodic Other aftercare (1 source) 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 Chrissy Frazier AMYLASEon 01-04-2023 Amylase [Catalytic activity/Vol] 34 U/L Normal 25-115 [facility] Comment on above: Performed By: #### A MY ####[facility] Qppzvyiafa02[address] [place], [place] [address]Dr. Chrissy Freddie CBC AUTO DIFFon 01-04-2023 BASO # 0.0 103/ul Normal 0.0-0.1 [facility] Comment on above: Performed By: #### C BC ####[facility] Xvjonnigxh93[address] [place], [place] [address]Dr. Chrissy Frazier Basophils/100 WBC (Bld) 0.1 % Critically low 0.2-2.0 [facility] Comment on above: Performed By: #### C BC ####[facility] Uncwbrkpha[address] [place], [place] [address]Dr. Tishrowan Frazier EO # 0.0 103/ul Normal 0.0-0.7 [facility] Comment on above: Performed By: #### C BC ####[facility] Cgpacuswli[address] [place], [place] [address]Dr. Chrissy Frazier Eosinophils/100 WBC (Bld) 0.1 % Critically low 0.9-7.0 [facility] Comment on above: Performed By: #### C BC ####[facility] Fhtnhdbnbh[address] [place], [place] [address]DrNancy Frazier Erythrocyte distribution width (RBC) [Ratio] 14.0 % Normal 11.0-15.0 [facility] Comment on above: Performed By: #### C BC ####[facility] Gapsdyfaie[address] [place], [place] [address]Dr. Chrissy Frazier Hematocrit (Bld) [Volume fraction] 40.4 % Critically low 42.0-54.0 [facility] Comment on above: Performed By: #### C BC ####[facility] Uxoarpiluo[address] [place] [address]Dr. Chrissy Frazier Hemoglobin (Bld) [Mass/Vol] 13.8 g/dL Critically low 14.0-18.0 [facility] Comment on above: Performed By: #### C BC ####[facility] Fnlqxbcaiy64[address] [place] [address]Dr. Chrissy Freddie IG # 0.05 10e3/ul Critically high 0.00-0.03 [facility] Comment on above: Performed By: #### C BC ####[facility] Nudycabwik30[address] [place] [address]Dr. Tishrowan Frazier IG % 0.3 % Normal 0.0-0.5 [facility] Comment on above: Performed By: #### C BC ####[facility] Gbbuhqkuws39[address] [place], [place] [address]Dr. Chrissy Frazier LYMPH # 1.7 103/ul Normal 1.2-3.8 [facility] Comment on above: Performed By: #### C BC ####[facility] Kzreauapsb37[address] [place] [address]Dr. Chrissy Freddie Lymphocytes/100 WBC (Bld) 11.9 % Critically low 20.5-60.0 [facility] Comment on above: Performed By: #### C BC ####[facility] Jfzkntbpmt84[address] [place] [address]Dr. Chrissy Frazier MANUAL DIFF REQ NO Normal [facility] Comment on above: Performed By: #### C BC ####[facility] Ukvgveakge4157 [place] [address]Dr. Chrissy Freddie MCH (RBC) [Entitic mass] 29.3 pg Normal 25.9-34.0 [facility] Comment on above: Performed By: #### C BC ####[facility] Bhjbyyzewg0193 [place] [address]Dr. Tishrowan Frazier MCHC (RBC) [Mass/Vol] 34.2 g/dL Normal 29.9-35.2 [facility] Comment on above: Performed By: #### C BC ####[facility] Pteercyfno0402 [place] [address]Dr. Chrissy Frazier MCV (RBC) [Entitic vol] 85.8 fL Normal 80.0-94.0 The [facility] Comment on above: Performed By: #### C BC ####[facility] Heodpudqwj1315 [place] [address]Dr. Chrissy Freddie MONO # 0.6 103/ul Normal 0.3-0.8 The [facility] Comment on above: Performed By: #### C BC ####[facility] Cglzzcakax72[address] [place] [address]Dr. Chrissy Freddie Monocytes/100 WBC (Bld) 4.2 % Normal 1.7-12.0 The [facility] Comment on above: Performed By: #### C BC ####[facility] Mncmespgit9[address] [place], [place] [address]Dr. Chrissy Frazier NEUT # 12.0 103/ul Critically high 1.4-6.5 [facility] Comment on above: Performed By: #### C BC ####[facility] Hbmlomzedq[address] [place], [place] [address]Dr. Tishrowan Frazier Neutrophils/100 WBC (Bld) 83.4 % Critically high 43.0-75.0 The [facility] Comment on above: Performed By: #### C BC ####[facility] Hhnzemszya01[address] [place], [place] [address]Dr. Chrissy Freddie Platelet mean volume (Bld) [Entitic vol] 10.4 fL Normal 9.5-13.5 The [facility] Comment on above: Performed By: #### C BC ####[facility] Eyvpxkubzp[address] [place], [place] [address]Dr. Chrissy Frazier PLT 313 103/ul Normal 150-450 [facility] Comment on above: Performed By: #### C BC ####[facility] Kshoudrdmv9082 [place] [address]Dr. Chrissy Frazier RBC 4.71 106/ul Normal 4.70-6.10 The [facility] Comment on above: Performed By: #### C BC ####[facility] Cywwwocckb7526 [place] [address]Dr. Chrissy Frazier WBC 14.4 103/ul Critically high 4.0-11.0 [facility] Comment on above: Performed By: #### C BC ####[facility] Xivxinyqpa0160 [place] [address]Dr. Chrissy Frazier CULTURE URINEon 01-04-2023 CULTURE URINE Culture Observations: NO GROWTH. Normal The [facility] Comment on above: Performed By: #### U RCX ####[facility] Cppccujhpz98[address] [place] [address]Dr. Chrissy Frazier DRUG SCREEN RAPID (URINE)on 01-04-2023 AMP Negative Normal NEGATIVE The [facility] Comment on above: Performed By: #### D REYES, UAMIC ####[facility] Fzvwbxaitu2346 [place] [address]Dr. Chrissy Frazier BAR Negative Normal NEGATIVE The [facility] Comment on above: Performed By: #### D REYES, UAMIC ####[facility] Obufodztgv5932 [place] [address]Dr. Chrissy Frazier BUP Negative Normal NEGATIVE The [facility] Comment on above: Performed By: #### D CHAYAD, UAMIC ####[facility] Nvqvxjsqqj0264 [place] [address]Dr. Chrissy Frazier BZO Positive Abnormal NEGATIVE The [facility] Comment on above: Performed By: #### D REYES, UAMIC ####[facility] Hjcjsbkgsq3359 [place] [address]Dr. Chrissy Frazier LAUREN Negative Normal NEGATIVE The [facility] Comment on above: Performed By: #### D REYES, UAMIC ####[facility] Qrktdtgqps2658 [place] [address]Dr. Chrissy Frazier CUT-OFFS SEE BELOW Normal The [facility] Comment on above: Result Comment: AMP [...] ng/mL Performed By: #### Amelie CHAMBERS, UAMIC ####[facility] Nexxixegng[address] [place], [place] [address]Dr. [facility] DRUG CUT HEADER DRUG CLASS TEST SYSTEM CUT-OFF CONCENTRATIONS ARE FOLLOWS: Normal The [facility] Comment on above: Performed By: #### Amelie CHAMBERS UAMIC ####[facility] Xjxuzthidv230[address] [place], [place] [address]Dr. Chrissy [facility] mAMP Negative Normal NEGATIVE The [facility] Comment on above: Performed By: #### Amelie CHAMBERS UAMIC ####[facility] Ydpppxayme468[address] [place], [place] [address]Dr. [facility] MTD Negative Normal NEGATIVE [facility] Comment on above: Performed By: #### Amelie CHAMBERS, UAMIC ####[facility] Bqpmhcmghn978[address] [place], [place] [address]Dr. [facility] OPI Negative Normal NEGATIVE The [facility] Comment on above: Performed By: #### Amelie CHAMBERS, UAMIC ####[facility] Vtfkhtmfsi[address] [place], [place] [address]Dr. [facility] OXY Negative Normal NEGATIVE The [facility] Comment on above: Performed By: #### Amelie CHAMBERS, UAMIC ####[facility] Raolefbzis[address] [place], [place] [address]Dr. [facility] PCP Negative Normal NEGATIVE The [facility] Comment on above: Performed By: #### Amelie CHAMBERS, UAMIC ####[facility] Ngzsdiveaq529[address] [place], [place] [address]Dr. [facility] PPX Negative Normal NEGATIVE The [facility] Comment on above: Performed By: #### D REYES UAMIC ####[facility] Txxljophge[address]87 [place] [address]Dr. Chrissy Frazier TCA Positive Abnormal NEGATIVE [facility] Comment on above: Performed By: #### D REYES UAMIC ####[facility] Zvrywovrcd6797 [place] [address]Dr. Chrissy Frazier THC Positive Abnormal NEGATIVE The [facility] Comment on above: Performed By: #### D REYES UAMIC ####[facility] Fsmwmvjgie3157 [place] [address]Dr. Chrissy Frazier LIPASEon 01-04-2023 Lipase [Catalytic activity/Vol] 57.0 U/L Critically low 73.0-393.0 [facility] Comment on above: Performed By: #### L IPA ####[facility] Jyaswyhmpj212[address] [place], [place] [address]Dr. Chrissy Frazier PROF 14(COMP METB)on 023 Albumin [Mass/Vol] 3.6 g/dL Normal 3.4-5.0 [facility] Comment on above: Performed By: #### C MP ####[facility] Jgepmyegol9[address] [place], [place] [address]Dr. Chrissy Frazier Albumin/Globulin [Mass ratio] 1.0 {ratio} Normal [facility] Comment on above: Performed By: #### C MP ####[facility] Sgcxneagrk9[address] [place], [place] [address]Dr. Chrissy Frazier ALP [Catalytic activity/Vol] 67 U/L Normal 46-116 The [facility] Comment on above: Performed By: #### C MP ####[facility] Ifdikyjuck174[address] [place], [place] [address]Dr. Chrissy Frazier ALT [Catalytic activity/Vol] 26 U/L Normal 16-63 [facility] Comment on above: Performed By: #### C MP ####[facility] Zbresuiwhr3667 [place] [address]Dr. Chrissy Frazier Anion gap [Moles/Vol] 16.3 mmol/L Normal [facility] Comment on above: Performed By: #### C MP ####[facility] Ikxqrhqzkb7849 [place] [address]Dr. Chrissy Frazier AST [Catalytic activity/Vol] 17 U/L Normal 15-37 [facility] Comment on above: Performed By: #### C MP ####[facility] Fvgblxhhok1620 [place] [address]Dr. Chrissy Frazier Bilirubin [Mass/Vol] 0.4 mg/dL Normal 0.2-1.0 [facility] Comment on above: Performed By: #### C MP ####[facility] Lnijcknwon[address] [place], [place] [address]Dr. Chrissy Frazier Calcium [Mass/Vol] 8.7 mg/dL Normal 8.5-10.1 [facility] Comment on above: Performed By: #### C MP ####[facility] Mguauzzwwc720[address] [place], [place] [address]Dr. Chrissy Frazier Chloride [Moles/Vol] 106 mmol/L Normal 98-107 [facility] Comment on above: Performed By: #### C MP ####[facility] Tovoxfwohj74[address] [place], [place] [address]Dr. Chrissy Frazier CO2 [Moles/Vol] 22.6 mmol/L Normal 21.0-32.0 [facility] Comment on above: Performed By: #### C MP ####[facility] Qgfiaeseqt529[address] [place], [place] [address]Dr. Chrissy Frazier Creatinine [Mass/Vol] 0.99 mg/dL Normal 0.70-1.30 [facility] Comment on above: Performed By: #### C MP ####[facility] Soruqzkamh8189 [place] [address]Dr. Chrissy Frazier EGFR-AF [place] >60 Normal >=60 [facility] Comment on above: Performed By: #### C MP ####[facility] Zmssbwaums4809 [place] [address]Dr. Chrissy Frazier EGFR-NON AF [place] >60 Normal >=60 [facility] Comment on above: Performed By: #### C MP ####[facility] Alngyqtvfq8662 [place] [address]Dr. Chrissy Frazier Globulin (S) [Mass/Vol] 3.6 g/dL Normal [facility] Comment on above: Performed By: #### C MP ####[facility] Bzxumbsqzn0968 [place] [address]Dr. Chrissy Frazier Glucose [Mass/Vol] 138 mg/dL Critically high 74-106 T [facility] Comment on above: Performed By: #### C MP ####[facility] Qwalcuzryd7031 [place] [address]Dr. Chrissy Frazier Potassium [Moles/Vol] 3.9 mmol/L Normal 3.5-5.1 [facility] Comment on above: Performed By: #### C MP ####[facility] Pckcdigcuh[address] [place], [place] [address]Dr. Chrissy Frazier Protein [Mass/Vol] 7.2 g/dL Normal 6.4-8.2 [facility] Comment on above: Performed By: #### C MP ####[facility] Bxvbckseae[address] [place], [place] [address]Dr. Chrissy Frazier Sodium [Moles/Vol] 141 mmol/L Normal 136-145 [facility] Comment on above: Performed By: #### C MP ####[facility] Qplxsoaupn0120[address] [place], [place] [address]Dr. Chrissy Frazier Urea nitrogen [Mass/Vol] 10.0 mg/dL Normal 7.0-18.0 [facility] Comment on above: Performed By: #### C MP ####[facility] Ztsdmzcqad634[address] [place], [place] [address]Dr. Chrissy Frazier Urea nitrogen/Creatinine [Mass ratio] 10.1 mg/mg Normal [facility] Comment on above: Performed By: #### C MP ####[facility] Eguqxcbgrv7[address] [place], [place] [address]Dr. Chrissy Frazier UA RANDOM W/MICROSCOPICon BACTERIA TRACE Abnormal NONE SEEN The [facility] Comment on above: Performed By: #### D REYES, UAMIC ####[facility] Gaxjfrhbcf92[address] [place] [address]Dr. Chrissy Frazier Bilirubin Ql (U) Negative Normal NEGATIVE [facility] Comment on above: Performed By: #### Amelie CHAMBERS, UAMIC ####[facility] Ioyoqchobb[address] [place], [place] [address]Dr. Chrissy Frazier CAST NONE SEEN Normal NONE SEEN The [facility] Comment on above: Performed By: #### Amelie CHAMBERS, UAMIC ####[facility] Obzuyqqxqu[address] [place], [place] [address]Dr. Chrissy Frazier Clarity (U) CLEAR Normal CLEAR The [facility] Comment on above: Performed By: #### Amelie CHAMBERS, UAMIC ####[facility] Azpqcfxhof435[address] [place], [place] [address]Dr. Chrissy Frazier Color (U) YELLOW Normal YELLOW [facility] Comment on above: Performed By: #### Amelie CHAMBERS, UAMIC ####[facility] Tjnsmdfajp[address] [place], [place] [address]Dr. Chrissy Frazier Crystals LM Nom (Urine sed) NONE SEEN Normal NONE SEEN The [facility] Comment on above: Performed By: #### Amelie CHAMBERS, UAMIC ####[facility] Bafadogyti80[address] [place], [place] [address]Dr. Chrissy Frazier Epithelial cells LM Ql (Urine sed) NONE SEEN Normal NONE SEEN /RARE The [facility] Comment on above: Performed By: #### Amelie CHAMBERS, UAMIC ####[facility] Hqrqcjumjp865[address] [place], [place] [address]Dr. Chrissy Frazier Glucose Ql (U) Negative Normal NEGATIVE [facility] Comment on above: Performed By: #### D REYES, UAMIC ####[facility] Qfbmfmejhn9[address] [place], [place] [address]Dr. Chrissy Frazier Hemoglobin Ql (U) Negative Normal NEGATIVE [facility] Comment on above: Performed By: #### Amelie CHAMBERS, UAMIC ####[facility] Uurjtqxryt040[address] [place], [place] [address]Dr. Chrissy Frazier Ketones Ql (U) 15 mg/dl Abnormal NEGATIVE [facility] Comment on above: Performed By: #### Amelie CHAMBERS UAMIC ####[facility] Fdlgsutvuy79[address] [place] [address]Dr. Chrissy Frazier LEUKOCYTES Negative Normal NEGATIVE The [facility] Comment on above: Performed By: #### Amelie CHAMBERS UAMIC ####[facility] Wvgeqdbyfm3834 [place] [address]Dr. Chrissy Frazier MUCOUS NONE SEEN Normal NONE SEEN The [facility] Comment on above: Performed By: #### Amelie CHAMBERS UAMIC ####[facility] Mlbsvnfkvu1257 [place] [address]Dr. Chrissy Frazier Nitrite Ql (U) Negative Normal NEGATIVE [facility] Comment on above: Performed By: #### Amelie CHAMBERS UAMIC ####[facility] Ulwkelzbop6489 [place] [address]Dr. Chrissy Frazier pH (U) 6.5 [pH] Normal 5-9 [facility] Comment on above: Performed By: #### Amelie CHAMBERS UAMIC ####[facility] Iwubiksuec17[address] [place], [place] [address]Dr. Chrissy Frazier RBC NONE SEEN Abnormal 0-2 [facility] Comment on above: Performed By: #### Amelie CHAMBERS UAMIC ####[facility] Pyywlenags[address] [place], [place] [address]Dr. Chrissy Frazier SPEC GRAVITY 1.020 Normal 1.005-<=1.025 [facility] Comment on above: Performed By: #### Amelie CHAMBERS UAMIC ####[facility] Jncafndhzp9[address] [place], [place] [address]Dr. Chrissy Frazier UA PROTEIN Negative Normal NEGATIVE/ TRACE [facility] Comment on above: Performed By: #### Amelie CHAMBERS UAMIC ####[facility] Wurvoucmil[address] [place], [place] [address]Dr. Chrissy Frazier Urobilinogen Qn (U) 0.2 {Estrellita'U}/dL Normal 0.2 - 1. 0 [facility] Comment on above: Performed By: #### Amelie CHAMBERS UAMIC ####[facility] Fpzhvlahsv1586 [place] [address]Dr. Chrissy Frazier WBC NONE SEEN Normal NONE SEEN The [facility] Comment on above: Performed By: #### D REYES UAMIC ####[facility] Wnceyaswfr0911 [place] [address]Dr. Chrissy Frazier AMMONIAon 01-03-2023 Ammonia (P) [Moles/Vol] 17 umol/L Normal 11-32 [facility] Comment on above: Performed By: #### A MM ####[facility] Lftneaqglp4[address] [place] [address]Dr. Chrissy Frazier AMYLASEon 01-03-2023 Amylase [Catalytic activity/Vol] 38 U/L Normal 25-115 [facility] Comment on above: Performed By: #### L IPA, TERRENCE, CMP, MG ####[facility] Udqednbuph[address] [place] [address]Dr. Chrissy Frazier CBC AUTO DIFFon 01-03-2023 BASO # 0.1 103/ul Normal 0.0-0.1 [facility] Comment on above: Performed By: #### C BC ####[facility] Dkhvqvvvun8676 [place] [address]Dr. Chrissy Frazier Basophils/100 WBC (Bld) 0.4 % Normal 0.2-2.0 [facility] Comment on above: Performed By: #### C BC ####[facility] Ytrgglmcdg8785 [place] [address]Dr. Chrissy Frazier EO # 0.1 103/ul Normal 0.0-0.7 [facility] Comment on above: Performed By: #### C BC ####[facility] Gdefkzzzzf1748 [place] [address]Dr. Chrissy Frazier Eosinophils/100 WBC (Bld) 0.3 % Critically low 0.9-7.0 [facility] Comment on above: Performed By: #### C BC ####[facility] Wyppdrfneg6334 [place] [address]Dr. Chrissy Frazier Erythrocyte distribution width (RBC) [Ratio] 13.7 % Normal 11.0-15.0 [facility] Comment on above: Performed By: #### C BC ####[facility] Qxxgjkcfcx1072 [place] [address]Dr. Tishrowan Freddie Hematocrit (Bld) [Volume fraction] 46.1 % Normal 42.0-54.0 [facility] Comment on above: Performed By: #### C BC ####[facility] Abmgczikkz5626 [place] [address]Dr. Chrissy Frazier Hemoglobin (Bld) [Mass/Vol] 15.4 g/dL Normal 14.0-18.0 [facility] Comment on above: Performed By: #### C BC ####[facility] Xwxqcgxcmz[address] [place], [place] [address]Dr. Chrissy Frazier IG # 0.11 10e3/ul Critically high 0.00-0.03 [facility] Comment on above: Performed By: #### C BC ####[facility] Aqnpdhnhyt[address] [place], [place] [address]Dr. Chrissy Frazier IG % 0.6 % Critically high 0.0-0.5 [facility] Comment on above: Performed By: #### C BC ####[facility] Sdaqmxmlnn[address] [place], [place] [address]Dr. Chrissy Frazier LYMPH # 2.5 103/ul Normal 1.2-3.8 [facility] Comment on above: Performed By: #### C BC ####[facility] [facility] Yjyusmqfj[address] [place], [place] [address]DrNancy Frazier Lymphocytes/100 WBC (Bld) 13.9 % Critically low 20.5-60.0 [facility] Comment on above: Performed By: #### C BC ####[facility] Ntkbtmetlo[address] [place], [place] [address]DrNancy Frazier MANUAL DIFF REQ NO Normal [facility] Comment on above: Performed By: #### C BC ####[facility] Rboxdigxmm[address] [place] [address]Dr. Chrissy Frazier MCH (RBC) [Entitic mass] 28.6 pg Normal 25.9-34.0 [facility] Comment on above: Performed By: #### C BC ####[facility] Ldbthwvscb90[address] [place] [address]Dr. Chrissy Frazier MCHC (RBC) [Mass/Vol] 33.4 g/dL Normal 29.9-35.2 [facility] Comment on above: Performed By: #### C BC ####[facility] Qrvhfgfano1237 [place] [address]Dr. Chrissy Frazier MCV (RBC) [Entitic vol] 85.7 fL Normal 80.0-94.0 [facility] Comment on above: Performed By: #### C BC ####[facility] Kqbtckpbxf[address] [place], [place] [address]DrNancy Frazier MONO # 0.7 103/ul Normal 0.3-0.8 [facility] Comment on above: Performed By: #### C BC ####[facility] Bcuooqliyg[address] [place], [place] [address]Dr. Chrissy Frazier Monocytes/100 WBC (Bld) 4.0 % Normal 1.7-12.0 [facility] Comment on above: Performed By: #### C BC ####[facility] Ihctjftwlr[address] [place], [place] [address]DrNancy Frazier NEUT # 14.3 103/ul Critically high 1.4-6.5 [facility] Comment on above: Performed By: #### C BC ####[facility] Wkcoobcjyp[address] [place], [place] [address]Dr. Chrissy Frazier Neutrophils/100 WBC (Bld) 80.8 % Critically high 43.0-75.0 [facility] Comment on above: Performed By: #### C BC ####[facility] Bikgfxzhhs[address] [place], [place] [address]DrNancy Frazier Platelet mean volume (Bld) [Entitic vol] 10.4 fL Normal 9.5-13.5 [facility] Comment on above: Performed By: #### C BC ####[facility] Uqqglgjwwz[address] [place], [place] [address]Dr. Chrissy Frazier PLT 437 103/ul Normal 150-450 [facility] Comment on above: Performed By: #### C BC ####[facility] Ojgshpucnx5575 [place] [address]Dr. Chrissy Frazier RBC 5.38 106/ul Normal 4.70-6.10 [facility] Comment on above: Performed By: #### C BC ####[facility] Deqqmxwasl8764 [place] [address]Dr. Chrissy Frazier WBC 17.7 103/ul Critically high 4.0-11.0 [facility] Comment on above: Performed By: #### C BC ####[facility] Ljeybeaysh4504 [place] [address]Dr. Chrissy Frazier CULTURE BLOODon 01-03-2023 Microscopic examination of blood, culture Culture Observations: NO GROWTH AT 5 DAYS. Normal [facility] Comment on above: Performed By: #### B LDCX1 ####[facility] Jxaesucvqi[address] [place], [place] [address]Dr. Chrissy Frazier Performed By: #### B LDCX2 ####[facility] Pleuuuyalg20[address] [place] [address]Dr. Chrissy Frazier ECHOCARDIO M/2D COMPLETEon 0 01-03-2023 ECHOCARDIO M/2D COMPLETE Normal [facility] LACTATE/LACTIC ACIDon 2022 Lactate [Moles/Vol] 2.7 mmol/L Critically high 0.4-1.9 [facility] Comment on above: Performed By: #### L ACT ####[facility] Nrfjwmpnzo9823 [place] [address]Dr. Chrissy Frazier Lactate [Moles/Vol] 6.3 mmol/L Critically high 0.4-1.9 [facility] Comment on above: Performed By: #### L ACT ####[facility] Dkguyzfglg1258 [place] [address]Dr. Chrissy Frazier LIPASEon 01-03-2023 Lipase [Catalytic activity/Vol] 74.0 U/L Normal 73.0-393.0 [facility] Comment on above: Performed By: #### L IPA, TERRENCE, CMP, MG ####[facility] Exgpwbudhd2175 [place] [address]Dr. Chrissy Frazier MAGNESIUMon 01-03-2023 Magnesium [Mass/Vol] 1.6 mg/dL Critically low 1.8-2.4 [facility] Comment on above: Performed By: #### L IPA, TERRENCE, CMP, MG ####[facility] Vtvlbfeuxb[address] [place] [address]Dr. Chrissy Frazier PROF 14(COMP METB)on 023 Albumin [Mass/Vol] 4.3 g/dL Normal 3.4-5.0 [facility] Comment on above: Performed By: #### L IPA, TERRENCE, CMP, MG ####[facility] Acimopgigy8628 [place] [address]Dr. Chrissy Frazier Albumin/Globulin [Mass ratio] 1.1 {ratio} Normal [facility] Comment on above: Performed By: #### L IPA, TERRENCE, CMP, MG ####[facility] Cwvfayjmov2780 [place] [address]Dr. Chrissy Frazier ALP [Catalytic activity/Vol] 87 U/L Normal 46-116 [facility] Comment on above: Performed By: #### L IPA, TERRENCE, CMP, MG ####[facility] Ughejxgwmc1868 [place] [address]Dr. Chrissy Frazier ALT [Catalytic activity/Vol] 32 U/L Normal 16-63 [facility] Comment on above: Performed By: #### L IPA, TERRENCE, CMP, MG ####[facility] Fymtjqkkxc0714 [place] [address]Dr. Chrissy Frazier Anion gap [Moles/Vol] 24.0 mmol/L Normal [facility] Comment on above: Performed By: #### L IPA, TERRENCE, CMP, MG ####[facility] Jhccdvcynr0917 [place] [address]Dr. Chrissy Frazier AST [Catalytic activity/Vol] 22 U/L Normal 15-37 [facility] Comment on above: Performed By: #### L IPA, TERRENCE, CMP, MG ####[facility] Mbksqinasy8671 [place] [address]Dr. Chrissy Frazier Bilirubin [Mass/Vol] 0.6 mg/dL Normal 0.2-1.0 [facility] Comment on above: Performed By: #### L IPA, TERRENCE, CMP, MG ####[facility] Djactajzfn7229 [place] [address]Dr. Chrissy Frazier Calcium [Mass/Vol] 9.6 mg/dL Normal 8.5-10.1 [facility] Comment on above: Performed By: #### L IPA, TERRENCE, CMP, MG ####[facility] Mqvotipufk5561 [place] [address]Dr. Chrissy Frazier Chloride [Moles/Vol] 103 mmol/L Normal 98-107 [facility] Comment on above: Performed By: #### L IPA, TERRENCE, CMP, MG ####[facility] Plfbupmilx86[address] [place], [place] [address]Dr. Chrissy Frazier CO2 [Moles/Vol] 16.7 mmol/L Critically low 21.0-32.0 [facility] Comment on above: Performed By: #### L IPA, TERRENCE, CMP, MG ####[facility] Fvsprkbufk67[address] [place], [place] [address]Dr. Chrissy Frazier Creatinine [Mass/Vol] 1.42 mg/dL Critically high 0.70-1.30 [facility] Comment on above: Performed By: #### L IPA, TERRENCE, CMP, MG ####[facility] Cvexxihkhp75[address] [place] [address]Dr. Chrissy Frazier EGFR-AF [place] >60 Normal >=60 [facility] Comment on above: Performed By: #### L IPA, TERRENCE, CMP, MG ####[facility] Pcvzzscjkk[address] [place], [place] [address]Dr. Chrissy Frazier EGFR-NON AF [place] 58 mL/min/1.73m2 Critically low >=60 [facility] Comment on above: Performed By: #### L IPA, TERRENCE, CMP, MG ####[facility] Wmukhquwzg5553 [place] [address]Dr. Chrissy Frazier Globulin (S) [Mass/Vol] 4.0 g/dL Normal [facility] Comment on above: Performed By: #### L IPA, TERRENCE, CMP, MG ####[facility] Xzikuhxoni0350 [place] [address]Dr. Chrissy Frazier Glucose [Mass/Vol] 149 mg/dL Critically high 74-106 [facility] Comment on above: Performed By: #### L IPA, TERRENCE, CMP, MG ####[facility] Polgjxrvov6416 [place] [address]Dr. Chrissy Frazier Potassium [Moles/Vol] 3.7 mmol/L Normal 3.5-5.1 [facility] Comment on above: Performed By: #### L IPA, TERRENCE, CMP, MG ####[facility] Yyeioxfhzw5744 [place] [address]Dr. Chrissy Frazier Protein [Mass/Vol] 8.3 g/dL Critically high 6.4-8.2 [facility] Comment on above: Performed By: #### L IPA, TERRENCE, CMP, MG ####[facility] Pugaldfbht0756 [place] [address]Dr. Chrissy Frazier Sodium [Moles/Vol] 140 mmol/L Normal 136-145 [facility] Comment on above: Performed By: #### L IPA, TERRENCE, CMP, MG ####[facility] Truijirbgw1804 [place] [address]Dr. Chrissy Frazier Urea nitrogen [Mass/Vol] 16.0 mg/dL Normal 7.0-18.0 [facility] Comment on above: Performed By: #### L IPA, TERRENCE, CMP, MG ####[facility] Dgtaoscwoq9832 [place] [address]Dr. Chrissy Frazier Urea nitrogen/Creatinine [Mass ratio] 11.3 mg/mg Normal [facility] Comment on above: Performed By: #### L IPA, TERRENCE, CMP, MG ####[facility] Qredjptvsr2440 [place] [address]Dr. Chrissy Frazier SED RATE [facility] 2022 SED RATE 37 mm/hr Critically high <=15 [facility] Comment on above: Performed By: #### S EDR ####[facility] Dqeannwlfj0395 [place], [place] [address]Lf. Chrissy Frazier XR ABD FLAT UP_PA Enoch 01-03 XR ABD FLAT UP_PA CH Normal [facility] CT HEART CORONARY ANGIOGRAMo n 12-13-2022 [...] CT examination Electronically signed: Maikel Chappell. Normal [facility] Office Visiton 11-24-2022 Follow-up visit [id number] Paulina Montero 1990 M Date Provider Department Center 11/24/2022 3848-RAQUEL BANKS MANE [facility] Family History Problem Relation Age of Onset Coronary artery disease Father Heart attack Father 54 Family Status - Relation Status Age at Father Level of Service:16051 [place] OFFICE/OUTPATIENT NEW MODERATE MDM 45-59 MINUTES Reason for Visit and Comments: abnormal stress test [Other] Normal [facility] CARDIAC STRESS TESTon 2021 CARDIAC STRESS TEST Normal [facility] AMYLASEon 10-24-2022 Amylase [Catalytic activity/Vol] 26 U/L Normal 25-115 [facility] Comment on above: Performed By: #### C MP, LIPA, TERRENCE ####[facility] Nrfukvmckx9016 [place], [place] [address]IlNancy Chrissy Frazier CBC AUTO DIFFon 10-24-2022 BASO # 0.0 103/ul Normal 0.0-0.1 [facility] Comment on above: Performed By: #### C BC ####[facility] Mkuvmrbeuw4272 [place] [address]Dr. Chrissy Frazier Basophils/100 WBC (Bld) 0.2 % Normal 0.2-2.0 [facility] Comment on above: Performed By: #### C BC ####[facility] Qzsnejfljt5395 [place] [address]Dr. Chrissy Frazier EO # 0.1 103/ul Normal 0.0-0.7 [facility] Comment on above: Performed By: #### C BC ####[facility] Syksuxnpdr[address] [place], [place] [address]Dr. Chrissy Frazier Eosinophils/100 WBC (Bld) 0.4 % Critically low 0.9-7.0 [facility] Comment on above: Performed By: #### C BC ####[facility] Ciwoyjyyat[address] [place], [place] [address]Dr. Chrissy Frazier Erythrocyte distribution width (RBC) [Ratio] 14.6 % Normal 11.0-15.0 [facility] Comment on above: Performed By: #### C BC ####[facility] Cebveipqam6916 [place] [address]Dr. Chrissy Frazier Hematocrit (Bld) [Volume fraction] 39.4 % Critically low 42.0-54.0 [facility] Comment on above: Performed By: #### C BC ####[facility] Aeeivfgpab9727 [place] [address]Dr. Chrissy Frazier Hemoglobin (Bld) [Mass/Vol] 13.2 g/dL Critically low 14.0-18.0 [facility] Comment on above: Performed By: #### C BC ####[facility] Yhxclscnnz9867 [place] [address]Dr. Chrissy Frazier IG # 0.07 10e3/ul Critically high 0.00-0.03 [facility] Comment on above: Performed By: #### C BC ####[facility] Taxnndcbgx[address] [place], [place] [address]Dr. Chrissy Frazier IG % 0.5 % Normal 0.0-0.5 [facility] Comment on above: Performed By: #### C BC ####[facility] Bxlmlgaxzb5555 [place] [address]Dr. Chrissy Frazier LYMPH # 3.7 103/ul Normal 1.2-3.8 [facility] Comment on above: Performed By: #### C BC ####[facility] Dcybffsssa6853 [place], [place] [address]Ew. Chrissy Freddie Lymphocytes/100 WBC (Bld) 27.0 % Normal 20.5-60.0 [facility] Comment on above: Performed By: #### C BC ####[facility] Zjmheawidt7569 [place] [address]Dr. Tishrowan Frazier MANUAL DIFF REQ NO Normal [facility] Comment on above: Performed By: #### C BC ####[facility] Bednrpjdlt2067 [place] [address]Dr. Chrissy Freddie MCH (RBC) [Entitic mass] 27.8 pg Normal 25.9-34.0 [facility] Comment on above: Performed By: #### C BC ####[facility] Mmmsoemjsl6233 [place] [address]Dr. Chrissy Frazier MCHC (RBC) [Mass/Vol] 33.5 g/dL Normal 29.9-35.2 [facility] Comment on above: Performed By: #### C BC ####[facility] Thzndkksdy2956 [place] [address]Dr. Chrissy Frazier MCV (RBC) [Entitic vol] 82.9 fL Normal 80.0-94.0 [facility] Comment on above: Performed By: #### C BC ####[facility] Nnmrwywevh2890 [place] [address]Dr. Chrissy Freddie MONO # 1.2 103/ul Critically high 0.3-0.8 [facility] Comment on above: Performed By: #### C BC ####[facility] Ddmcewutqr2704 [place] [address]Dr. Tishrowan Frazier Monocytes/100 WBC (Bld) 8.4 % Normal 1.7-12.0 [facility] Comment on above: Performed By: #### C BC ####[facility] Qukoxutzgd1241 [place] [address]Dr. Chrissy Frazier NEUT # 8.8 103/ul Critically high 1.4-6.5 [facility] Comment on above: Performed By: #### C BC ####[facility] Mmppyirnem5808 [place] [address]Dr. Chrissy Frazier Neutrophils/100 WBC (Bld) 63.5 % Normal 43.0-75.0 [facility] Comment on above: Performed By: #### C BC ####[facility] Jdedusyall6434 [place] [address]Dr. Tishrowan Frazier Platelet mean volume (Bld) [Entitic vol] 10.7 fL Normal 9.5-13.5 [facility] Comment on above: Performed By: #### C BC ####[facility] Aoohxqgzrt6606 [place] [address]Dr. Chrissy Frazier PLT 291 103/ul Normal 150-450 [facility] Comment on above: Performed By: #### C BC ####[facility] Nxiupwfanq[address] [place], [place] [address]Dr. Chrissy Frazier RBC 4.75 106/ul Normal 4.70-6.10 [facility] Comment on above: Performed By: #### C BC ####[facility] Lxezlcqvpv2494 [place] [address]Dr. Chrissy Frazier WBC 13.8 103/ul Critically high 4.0-11.0 [facility] Comment on above: Performed By: #### C BC ####[facility] Umugejdbgx[address] [place], [place] [address]Dr. Chrissy Frazier LIPASEon 10-24-2022 Lipase [Catalytic activity/Vol] 44.0 U/L Critically low 73.0-393.0 [facility] Comment on above: Performed By: #### C MP, LIPA, TERRENCE ####[facility] Qgihkcvmox5456 [place] [address]Dr. Chrissy Frazier PROF 14(COMP METB)on 022 Albumin [Mass/Vol] 3.4 g/dL Normal 3.4-5.0 [facility] Comment on above: Performed By: #### C OSWALD ADAIR, TERRENCE ####[facility] Cvzvwmkata3000 [place] [address]Dr. Chrissy Frazier Albumin/Globulin [Mass ratio] 0.9 {ratio} Normal [facility] Comment on above: Performed By: #### C TESSA ADAIRA, TERRENCE ####[facility] Uunupritqv[address] [place], [place] [address]Dr. Tishrowan Frazier ALP [Catalytic activity/Vol] 67 U/L Normal 46-116 [facility] Comment on above: Performed By: #### C OSWALD ADAIR, TERRENCE ####[facility] Htnvzgbwqr34[address] [place], [place] [address]Dr. Chrissy Frazier ALT [Catalytic activity/Vol] 25 U/L Normal 16-63 [facility] Comment on above: Performed By: #### C OSWALD ADAIR, TERRENCE ####[facility] Myojfudxrn193[address] [place], [place] [address]Dr. Chrissy Frazier Anion gap [Moles/Vol] 14.5 mmol/L Normal [facility] Comment on above: Performed By: #### C OSWALD ADAIR, TERRENCE ####[facility] Bpxqoonqqn[address] [place], [place] [address]Dr. Chrissy Frazier AST [Catalytic activity/Vol] 17 U/L Normal 15-37 [facility] Comment on above: Performed By: #### C OSWALD ADAIR, TERRENCE ####[facility] Nmunqjzxrg[address] [place], [place] [address]Dr. Chrissy Frazier Bilirubin [Mass/Vol] 0.5 mg/dL Normal 0.2-1.0 [facility] Comment on above: Performed By: #### C OSWALD ADAIR, TERRENCE ####[facility] Eudakgjhyx[address] [place], [place] [address]Dr. Chrissy Frazier Calcium [Mass/Vol] 8.6 mg/dL Normal 8.5-10.1 [facility] Comment on above: Performed By: #### C TESSA ADAIRA, TERRENCE ####[facility] Oquyaijaud8885 [place] [address]Dr. Chrissy Frazier Chloride [Moles/Vol] 106 mmol/L Normal 98-107 [facility] Comment on above: Performed By: #### C OSWALD ADAIR, TERRENCE ####[facility] Xsdudjbukk4655 [place] [address]Dr. Chrissy Frazier CO2 [Moles/Vol] 22.8 mmol/L Normal 21.0-32.0 [facility] Comment on above: Performed By: #### C OSWALD ADAIR, TERRENCE ####[facility] Kftnlesabk0749 [place] [address]Dr. Chrissy Frazier Creatinine [Mass/Vol] 0.98 mg/dL Normal 0.70-1.30 [facility] Comment on above: Performed By: #### C OSWALD ADAIR, TERRENCE ####[facility] Agkjcejrcc990[address] [place], [place] [address]Dr. Chrissy Frazier EGFR-AF [place] >60 Normal >=60 [facility] Comment on above: Performed By: #### C OSWALD ADAIR, TERRENCE ####[facility] Ovfodcwtuc[address] [place], [place] [address]Dr. Chrissy Frazier EGFR-NON AF [place] >60 Normal >=60 [facility] Comment on above: Performed By: #### C OSWALD ADAIR, TERRENCE ####[facility] Xmyvlnmwvo9126 [place] [address]Dr. Chrissy Frazier Globulin (S) [Mass/Vol] 3.7 g/dL Normal [facility] Comment on above: Performed By: #### C OSWALD ADAIR, TERRENCE ####[facility] Ryigshmjqd7263 [place] [address]Dr. Chrissy Frazier Glucose [Mass/Vol] 115 mg/dL Critically high 74-106 [facility] Comment on above: Performed By: #### C OSWALD ADAIR, TERRENCE ####[facility] Swpzhdzhfj[address] [place], [place] [address]Dr. Chrissy Frazier Potassium [Moles/Vol] 3.3 mmol/L Critically low 3.5-5.1 [facility] Comment on above: Performed By: #### C MP, LIPA, TERRENCE ####[facility] Sjmodybjuj7[address] [place], [place] [address]Dr. Chrissy Frazier Protein [Mass/Vol] 7.1 g/dL Normal 6.4-8.2 [facility] Comment on above: Performed By: #### C MP, LIPA, TERRENCE ####[facility] Kohzginfyt[address] [place], [place] [address]Dr. Chrissy Frazier Sodium [Moles/Vol] 140 mmol/L Normal 136-145 [facility] Comment on above: Performed By: #### C MP, LIPA, TERRENCE ####[facility] Yfwvooqxpw174[address] [place], [place] [address]Dr. Chrissy Frazier Urea nitrogen [Mass/Vol] 10.0 mg/dL Normal 7.0-18.0 [facility] Comment on above: Performed By: #### C MP, LIPA, TERRENCE ####[facility] Vrugtnspjn056[address] [place], [place] [address]Dr. Chrissy Frazier Urea nitrogen/Creatinine [Mass ratio] 10.2 mg/mg Normal [facility] Comment on above: Performed By: #### C MP, LIPA, TERRENCE ####[facility] Yswcizaxum[address] [place], [place] [address]Dr. Chrissy Frazier AMYLASEon 10-23-2022 Amylase [Catalytic activity/Vol] 31 U/L Normal 25-115 [facility] Comment on above: Performed By: #### C MP, LIPA, TERRENCE ####[facility] Luzntjkeax[address] [place], [place] [address]Dr. Chrissy Frazier CBC AUTO DIFFon 10-23-2022 BASO # 0.1 103/ul Normal 0.0-0.1 [facility] Comment on above: Performed By: #### C BC ####[facility] Dmetfmocxg206[address] [place], [place] [address]Dr. Chrissy Frazier Basophils/100 WBC (Bld) 0.3 % Normal 0.2-2.0 [facility] Comment on above: Performed By: #### C BC ####[facility] Inoybwfuaq7018 [place] [address]Dr. Chrissy Frazier EO # 0.1 103/ul Normal 0.0-0.7 [facility] Comment on above: Performed By: #### C BC ####[facility] Pvmdqkkusl7533 [place] [address]Dr. Chrissy Frazier Eosinophils/100 WBC (Bld) 0.3 % Critically low 0.9-7.0 [facility] Comment on above: Performed By: #### C BC ####[facility] Zufczcxvsf[address] [place], [place] [address]Dr. Chrissy Frazier Erythrocyte distribution width (RBC) [Ratio] 14.5 % Normal 11.0-15.0 [facility] Comment on above: Performed By: #### C BC ####[facility] Yjflknuqnd[address] [place], [place] [address]Dr. Chrissy Frazier Hematocrit (Bld) [Volume fraction] 44.0 % Normal 42.0-54.0 [facility] [facility] Comment on above: Performed By: #### C BC ####[facility] Reayjveryf[address] [place], [place] [address]Dr. Chrissy Frazier Hemoglobin (Bld) [Mass/Vol] 14.8 g/dL Normal 14.0-18.0 The [facility] Comment on above: Performed By: #### C BC ####[facility] [address]wgf[address] [place] [address]Dr. Chrissy Frazier IG # 0.09 10e3/ul Critically high 0.00-0.03 The [facility] Comment on above: Performed By: #### C BC ####[facility] Wzgvyjwwaj[address] [place] [address]Dr. Chrissy Frazier IG % 0.5 % Normal 0.0-0.5 The [facility] Comment on above: Performed By: #### C BC ####[facility] Dttkvedkzs[address] [place], [place] [address]Dr. Chrissy Frazier LYMPH # 3.6 103/ul Normal 1.2-3.8 The [facility] Comment on above: Performed By: #### C BC ####[facility] Ilwzxldtgn4163 [place] [id number]. Chrissy Freddie Lymphocytes/100 WBC (Bld) 19.4 % Critically low 20.5-60.0 The [facility] Comment on above: Performed By: #### C BC ####[facility] Pysjexitdi7817 [place] [address]Dr. Tishrowan Frazier MANUAL DIFF REQ NO Normal [facility] Comment on above: Performed By: #### C BC ####[facility] Tprrnimpzc6492 [place] [address]Dr. Chrissy Freddie MCH (RBC) [Entitic mass] 28.1 pg Normal 25.9-34.0 The [facility] Comment on above: Performed By: #### C BC ####[facility] Gvkohawuyf3385 [place] [address]Dr. Chrissy Freddie MCHC (RBC) [Mass/Vol] 33.6 g/dL Normal 29.9-35.2 The [facility] Comment on above: Performed By: #### C BC ####[facility] Znaoezqgsf2186 [place] [address]Dr. Chrissy Freddie MCV (RBC) [Entitic vol] 83.5 fL Normal 80.0-94.0 The [facility] Comment on above: Performed By: #### C BC ####[facility] Awtjufiack8883 [place] [address]Dr. Chrissy Frazier MONO # 0.9 103/ul Critically high 0.3-0.8 [facility] Comment on above: Performed By: #### C BC ####[facility] Rzflxtalze7998 [place] [address]Dr. Tishrowan Frazier Monocytes/100 WBC (Bld) 4.9 % Normal 1.7-12.0 The [facility] Comment on above: Performed By: #### C BC ####[facility] Cvnbwsouce8317 [place] [address]Dr. Chrissy Frazier NEUT # 13.9 103/ul Critically high 1.4-6.5 [facility] Comment on above: Performed By: #### C BC ####[facility] Hjzgpkyehh8124 [place] [address]Dr. Chrissy Frazier Neutrophils/100 WBC (Bld) 74.6 % Normal 43.0-75.0 The [facility] Comment on above: Performed By: #### C BC ####[facility] Nefhcrnffr2537 [place] [address]Dr. Chrissy Frazier Platelet mean volume (Bld) [Entitic vol] 10.5 fL Normal 9.5-13.5 The [facility] Comment on above: Performed By: #### C BC ####[facility] Ojvialphsd1749 [place] [address]Dr. Chrissy Frazier PLT 402 103/ul Normal 150-450 The [facility] Comment on above: Performed By: #### C BC ####[facility] Ymgsteaxuf4841 [place] [address]Dr. Chrissy Frazier RBC 5.27 106/ul Normal 4.70-6.10 The [facility] Comment on above: Performed By: #### C BC ####[facility] Plclsfzyul5032 [place] [address]Dr. Chrissy Frazier WBC 18.6 103/ul Critically high 4.0-11.0 [facility] Comment on above: Performed By: #### C BC ####[facility] Oesoujsjgw9696 [place] [address]Dr. Chrissy Frazier CULTURE BLOODon 10-23-2022 Microscopic examination of blood, culture Culture Observations: NO GROWTH AT 5 DAYS. Normal [facility] Comment on above: Performed By: #### B LDCX2 ####[facility] Rnsqfxosaa8384 [place] [address]Dr. Chrissy Frazier Microscopic examination of blood, culture Culture Observations: NO GROWTH AT 5 DAYS. Normal [facility] Comment on above: Performed By: #### B LDCX1 ####[facility] Ffgihlcrxr6219 [place] [id number]. Chrissy Frazier CULTURE URINEon 10-23-2022 CULTURE URINE Culture Observations: NO GROWTH. Normal [facility] Comment on above: Performed By: #### U RCX ####[facility] Vrcalwvcaa9027 [place] [address]Dr. Chrissy Frazier Covid-19 PCR (CVDTB)on SARS-CoV-2 (COVID-19) RNA RHIANNON+probe Ql (Unsp spec) Not detected Normal NOT DETECTED The [facility] Comment on above: Result Comment: When [...] for this test is supported by the [place] of Health and Human Service's declaration that [...] be used). Performed By: #### C VDTBH ####[facility] Bqrujirnfo[address] [place], [place] [address]Dr. Chrissy Frazier INFLUENZA A AND B AGon 10-23 INFLUANEGH SEE BELOW Normal The [facility] Comment on above: Result Comment: Nega tive for Flu A protein angiten. Infection due to Flu A cannot be ruled out. Flu A angiten in the sample may be below the detection limit of the test. Performed By: #### I NFLUAB ####[facility] Goygodvbng69[address] [place], [place] [address]Dr. Chrissy Frazier INFLUBNEGH SEE BELOW Normal The [facility] Comment on above: Result Comment: Nega tive for Flu B protein antigen. Infection due to Flu B cannot be ruled out. Flu B antigen in the sample may be below the detection limit of the test. Performed By: #### I NFLUAB ####[facility] Lfbuvkvqsp13[address] [place], [place] [address]Dr. Chrissy Frazier INFLUENZA A AG Negative Normal NEGATIVE SEE COMMENT The [facility] Comment on above: Performed By: #### I NFLUAB ####[facility] Jbtrmqxgre3243 [place] [address]Dr. Chrissy Frazier INFLUENZA B AG Negative Normal NEGATIVE SEE COMMENT The [facility] Comment on above: Performed By: #### I NFLUAB ####[facility] Gmrnjxolqs[address] [place], [place] [address]Dr. Chrissy Frazier INTERNAL CONTROLS Within Normal Limits Normal Wi thin Normal Limits The [facility] Comment on above: Performed By: #### I NFLUAB ####[facility] Rvvmyvizgl024[address] [place], [place] [address]Dr. Chrissy Frazier LACTATE/LACTIC ACIDon 2021 Lactate [Moles/Vol] 2.1 mmol/L Critically high 0.4-1.9 [facility] Comment on above: Performed By: #### L ACT ####[facility] Zidaxsjyfc[address] [place], [place] [address]Dr. Chrissy Frazier Lactate [Moles/Vol] 6.9 mmol/L Critically high 0.4-1.9 [facility] Comment on above: Performed By: #### L ACT ####[facility] Tdhfputxbc07[address] [place], [place] [address]Dr. Chrissy Freddie LIPASEon 10-23-2022 Lipase [Catalytic activity/Vol] 72.0 U/L Critically low 73.0-393.0 [facility] Comment on above: Performed By: #### C OSWALD ADAIR AMY ####[facility] Dpfrzbpbzf[address] [place], [place] [address]Dr. Chrissy Frazier PROF 14(COMP METB)on 022 Albumin [Mass/Vol] 3.9 g/dL Normal 3.4-5.0 [facility] Comment on above: Performed By: #### C OSWALD ADAIR AMY ####[facility] Xkjsaskiud22[address] [place], [place] [address]Dr. Chrissy Freddie Albumin/Globulin [Mass ratio] 0.9 {ratio} Normal The [facility] Comment on above: Performed By: #### C MP, LIPA, TERRENCE ####[facility] Idgupwntnz3208 [place] [address]Dr. Chrissy Frazier ALP [Catalytic activity/Vol] 82 U/L Normal 46-116 [facility] Comment on above: Performed By: #### C MP, LIPA, TERRENCE ####[facility] Kgfmdnbsgq2290 [place] [address]Dr. Chrissy Frazier ALT [Catalytic activity/Vol] 25 U/L Normal 16-63 [facility] Comment on above: Performed By: #### C MP, LIPA, TERRENCE ####[facility] Hwpadgymws[address] [place], [place] [address]Dr. Chrissy Frazier Anion gap [Moles/Vol] 18.1 mmol/L Normal [facility] Comment on above: Performed By: #### C MP, LIPA, TERRENCE ####[facility] Vljxhobmep[address] [place], [place] [address]Dr. Chrissy Frazier AST [Catalytic activity/Vol] 17 U/L Normal 15-37 [facility] Comment on above: Performed By: #### C MP, LIPA, TERRENCE ####[facility] Fvpbuukoqd[address] [place], [place] [address]Dr. Chrissy Frazier Bilirubin [Mass/Vol] 0.5 mg/dL Normal 0.2-1.0 [facility] Comment on above: Performed By: #### C MP, LIPA, TERRENCE ####[facility] Rznhzxffaq38[address] [place], [place] [address]Dr. Chrissy Frazier Calcium [Mass/Vol] 9.1 mg/dL Normal 8.5-10.1 [facility] Comment on above: Performed By: #### C MP, LIPA, TERRENCE ####[facility] Kvukagbjlt[address] [place], [place] [address]Dr. Chrissy Frazier Chloride [Moles/Vol] 101 mmol/L Normal 98-107 [facility] Comment on above: Performed By: #### C MP, LIPA, TERRENCE ####[facility] Nwwcezzdos[address] [place], [place] [address]Dr. Chrissy Frazier CO2 [Moles/Vol] 19.2 mmol/L Critically low 21.0-32.0 [facility] Comment on above: Performed By: #### C OSWALD ADAIR TERRENCE ####[facility] Gqwemzghnh62[address] [place] [address]Dr. Chrissy Frazier Creatinine [Mass/Vol] 1.72 mg/dL Critically high 0.70-1.30 [facility] Comment on above: Performed By: #### C OSWALD ADAIR, TERRENCE ####[facility] Kqmpblbihh[address] [place] [address]Dr. Chrissy Frazier EGFR-AF [place] 56 mL/min/1.73m2 Critically low >=60 [facility] Comment on above: Performed By: #### C OSWALD ADAIR, TERRENCE ####[facility] Xnxulzfbjv5186 [place] [address]Dr. Chrissy Frazier EGFR-NON AF [place] 46 mL/min/1.73m2 Critically low >=60 [facility] Comment on above: Performed By: #### C OSWALD ADAIR, TERRENCE ####[facility] Cisiexoriu[address] [place], [place] [address]Dr. Chrissy Frazier Globulin (S) [Mass/Vol] 4.2 g/dL Normal [facility] Comment on above: Performed By: #### C OSWALD ADAIR, TERRENCE ####[facility] Tkdjcdlqoi5203 [place] [address]Dr. Chrissy Frazier Glucose [Mass/Vol] 126 mg/dL Critically high 74-106 T [facility] Comment on above: Performed By: #### C OSWALD ADAIR, TERRENCE ####[facility] Qvunmzbihk8761 [place] [address]Dr. Chrissy Frazier Potassium [Moles/Vol] 3.3 mmol/L Critically low 3.5-5.1 [facility] Comment on above: Performed By: #### C TESSA ADAIRA, TERRENCE ####[facility] Ewmufwzvxo2972 [place] [address]Dr. Chrissy Frazier Protein [Mass/Vol] 8.1 g/dL Normal 6.4-8.2 [facility] Comment on above: Performed By: #### C OSWALD ADAIR, TERRENCE ####[facility] Bhtdsqebbx5[address] [place] [address]Dr. Chrissy Frazier Sodium [Moles/Vol] 135 mmol/L Critically low 136-145 Th e [facility] Comment on above: Performed By: #### C TESSA ADAIRA, TERRENCE ####[facility] Smpbbbgapn8237 [place] [address]Dr. Chrissy Frazier Urea nitrogen [Mass/Vol] 13.0 mg/dL Normal 7.0-18.0 [facility] Comment on above: Performed By: #### C OSWALD ADAIR, TERRENCE ####[facility] Ktnejoeqpb[address] [place], [place] [address]Dr. Chrissy Frazier Urea nitrogen/Creatinine [Mass ratio] 7.6 mg/mg Normal The [facility] Comment on above: Performed By: #### C OSWALD ADAIR, TERRENCE ####[facility] Kikxehnssq[address] [place], [place] [address]Dr. Chrissy Frazier UA RANDOM W/MICROSCOPICon BACTERIA NONE SEEN Normal NONE SEEN [facility] Comment on above: Performed By: #### U AMIC ####[facility] Wrpeazawbf[address] [place], [place] [address]Dr. Chrissy Frazier Bilirubin Ql (U) Negative Normal NEGATIVE [facility] Comment on above: Performed By: #### U AMIC ####[facility] Rmcodwlxra[address] [place], [place] [address]Dr. Chrissy Frazier CAST NONE SEEN Normal NONE SEEN The [facility] Comment on above: Performed By: #### U AMIC ####[facility] Fbewljvocw64[address] [place], [place] [address]Dr. Chrissy Frazier Clarity (U) CLEAR Normal CLEAR The [facility] Comment on above: Performed By: #### U AMIC ####[facility] Prnhyhuuxp[address] [place] [address]Dr. Chrissy Frazier Color (U) LT. YELLOW Normal YELLOW The [facility] Comment on above: Performed By: #### U AMIC ####[facility] Alzznodcpy7157 [place] [address]Dr. Chrissy Frazier Crystals LM Nom (Urine sed) NONE SEEN Normal NONE SEEN The [facility] Comment on above: Performed By: #### U AMIC ####[facility] Xibuvjiaqe875[address] [place], [place] [address]Dr. Chrissy Frazier Epithelial cells LM Ql (Urine sed) FEW Abnormal NONE SEEN /RARE The [facility] Comment on above: Performed By: #### U AMIC ####[facility] Oklwhjliti76[address] [place], [place] [address]Dr. Chrissy Frazier Glucose Ql (U) Negative Normal NEGATIVE [facility] Comment on above: Performed By: #### U AMIC ####[facility] Mpwrzisltn69[address] [place], [place] [address]Dr. Chrissy Frazier Hemoglobin Ql (U) Negative Normal NEGATIVE The [facility] Comment on above: Performed By: #### U AMIC ####[facility] Rxncxhfxrb5726[address] [place], [place] [address]Dr. Chrissy Frazier Ketones Ql (U) 15 mg/dl Abnormal NEGATIVE The [facility] Comment on above: Performed By: #### U AMIC ####[facility] Phjxdlanhf100[address] [place], [place] [address]Dr. Chrissy Frazier LEUKOCYTES Negative Normal NEGATIVE The [facility] Comment on above: Performed By: #### U AMIC ####[facility] Dzkledgmdl187[address] [place], [place] [address]Dr. Chrissy Frazier MUCOUS NONE SEEN Normal NONE SEEN The [facility] Comment on above: Performed By: #### U AMIC ####[facility] Lsmqxzexip044[address] [place], [place] [address]Dr. Chrissy Frazier Nitrite Ql (U) Negative Normal NEGATIVE [facility] Comment on above: Performed By: #### U AMIC ####[facility] Uyuruzsnua1445[address] [place], [place] [address]Dr. Chrissy Frazier pH (U) 6.0 [pH] Normal 5-9 The [facility] Comment on above: Performed By: #### U AMIC ####[facility] Zikcbtvxhq9264[address] [place], [place] [address]Dr. Chrissy Frazier RBC 0-2 Normal 0-2 The [facility] Comment on above: Performed By: #### U AMIC ####[facility] Fjecozxccu18[address] [place] [address]Dr. Chrissy Frazier SPEC GRAVITY 1.010 Normal 1.005-<=1.025 [facility] Comment on above: Performed By: #### U AMIC ####[facility] Ehvjzlnixo7341 [place] [address]Dr. Chrissy Freddie UA PROTEIN Negative Normal NEGATIVE/ TRACE [facility] Comment on above: Performed By: #### U AMIC ####[facility] Xrahowqkwj3504 [place] [address]Dr. Chrissy Freddie Urobilinogen Qn (U) 0.2 {Estrellita'U}/dL Normal 0.2 - 1. 0 The [facility] Comment on above: Performed By: #### U AMIC ####[facility] Imuizzsran585[address] [place], [place] [address]Dr. Chrissy Freddie WBC NONE SEEN Normal NONE SEEN The [facility] Comment on above: Performed By: #### U AMIC ####[facility] Alzztxallr410[address] [place], [place] [address]Dr. Chrissy Freddie AMYLASEon 10-22-2022 Amylase [Catalytic activity/Vol] 28 U/L Normal 25-115 The [facility] Comment on above: Performed By: #### L IPA, CMP, TERRENCE ####[facility] Dibyckjfzp[address] [place], [place] [address]Dr. Chrissy Freddie CBC AUTO DIFFon 10-22-2022 BASO # 0.0 103/ul Normal 0.0-0.1 The [facility] Comment on above: Performed By: #### C BC ####[facility] Svvjdvgobw[address] [place], [place] [address]Dr. Tishrowan Frazier Basophils/100 WBC (Bld) 0.2 % Normal 0.2-2.0 The [facility] Comment on above: Performed By: #### C BC ####[facility] Rfahtfqgrs54[address] [place], [place] [address]Dr. Chrissy Frazier EO # 0.0 103/ul Normal 0.0-0.7 The [facility] Comment on above: Performed By: #### C BC ####[facility] Yrhrcoyust2074 [place] [address]Dr. Chrissy Frazier Eosinophils/100 WBC (Bld) 0.1 % Critically low 0.9-7.0 The [facility] Comment on above: Performed By: #### C BC ####[facility] Aidgqsulqk4133 [place] [address]Dr. Chrissy Frazier Erythrocyte distribution width (RBC) [Ratio] 14.4 % Normal 11.0-15.0 The [facility] Comment on above: Performed By: #### C BC ####[facility] Vfmukobldd8525[address] [place], [place] [address]Dr. Chrissy Frazier Hematocrit (Bld) [Volume fraction] 45.2 % Normal 42.0-54.0 The [facility] Comment on above: Performed By: #### C BC ####[facility] Ionhohqfpx596[address] [place], [place] [address]Dr. Chrissy Frazier Hemoglobin (Bld) [Mass/Vol] 15.4 g/dL Normal 14.0-18.0 The [facility] Comment on above: Performed By: #### C BC ####[facility] Gxyjsrkzjd68[address] [place], [place] [address]Dr. Chrissy Frazier IG # 0.07 10e3/ul Critically high 0.00-0.03 [facility] Comment on above: Performed By: #### C BC ####[facility] Scogljrvpy[address] [place] [address]Dr. Chrissy Frazier IG % 0.4 % Normal 0.0-0.5 The [facility] Comment on above: Performed By: #### C BC ####[facility] Gpgfcioypf67[address] [place], [place] [address]Dr. Chrissy rFazier LYMPH # 2.0 103/ul Normal 1.2-3.8 The [facility] Comment on above: Performed By: #### C BC ####[facility] Pzcrboymrr39[address] [place], [place] [address]Dr. Chrissy Frazier Lymphocytes/100 WBC (Bld) 12.2 % Critically low 20.5-60.0 The [facility] Comment on above: Performed By: #### C BC ####[facility] Hvnzlbodyi5376 [place] [address]DrNancy Frazier MANUAL DIFF REQ NO Normal [facility] Comment on above: Performed By: #### C BC ####[facility] Fsldxgzapi1677 [place] [address]Dr. Chrissy Frazier MCH (RBC) [Entitic mass] 28.3 pg Normal 25.9-34.0 The [facility] Comment on above: Performed By: #### C BC ####[facility] Hzrftsdlhc43[address] [place], [place] [address]Dr. Chrissy Frazier MCHC (RBC) [Mass/Vol] 34.1 g/dL Normal 29.9-35.2 The [facility] Comment on above: Performed By: #### C BC ####[facility] Fdasrqbkok075[address] [place], [place] [address]Dr. Chrissy Frazier MCV (RBC) [Entitic vol] 82.9 fL Normal 80.0-94.0 The [facility] Comment on above: Performed By: #### C BC ####[facility] Dkeptcryvk179[address] [place], [place] [address]Dr. Chrissy Frazier MONO # 0.3 103/ul Normal 0.3-0.8 The [facility] Comment on above: Performed By: #### C BC ####[facility] Kulwxkqsla[address] [place], [place] [address]Dr. Chrissy Frazier Monocytes/100 WBC (Bld) 2.0 % Normal 1.7-12.0 The [facility] Comment on above: Performed By: #### C BC ####[facility] Zzixylihct[address] [place], [place] [address]DrNancy Frazier NEUT # 14.0 103/ul Critically high 1.4-6.5 [facility] Comment on above: Performed By: #### C BC ####[facility] Yxexdaeizr434[address] [place], [place] [address]Dr. Chrissy Frazier Neutrophils/100 WBC (Bld) 85.1 % Critically high 43.0-75.0 The [facility] Comment on above: Performed By: #### C BC ####[facility] Grqufnnoys0598 [place] [address]Dr. Chrissy Frazier Platelet mean volume (Bld) [Entitic vol] 10.6 fL Normal 9.5-13.5 The [facility] Comment on above: Performed By: #### C BC ####[facility] Yiporpstjx9718 [place] [address]Dr. Chrissy Frazier PLT 411 103/ul Normal 150-450 The [facility] Comment on above: Performed By: #### C BC ####[facility] Bjgnycokdy7767 [place] [address]Dr. Tishrowan Frazier RBC 5.45 106/ul Normal 4.70-6.10 The [facility] Comment on above: Performed By: #### C BC ####[facility] Ngwqyjyayd01[address] [place], [place] [address]Dr. Chrissy Frazier WBC 16.5 103/ul Critically high 4.0-11.0 [facility] Comment on above: Performed By: #### C BC ####[facility] Nqbajzkgrc[address] [place], [place] [address]Dr. Chrissy Freddie LIPASEon 10-22-2022 Lipase [Catalytic activity/Vol] 57.0 U/L Critically low 73.0-393.0 [facility] Comment on above: Performed By: #### L JULIEN CMP, TERRENCE ####[facility] Wgneiaxljx225[address] [place] [address]Dr. Chrissy Frazier PROF 14(COMP METB)on 022 Albumin [Mass/Vol] 4.2 g/dL Normal 3.4-5.0 [facility] Comment on above: Performed By: #### L IPA CMP, TERRENCE ####[facility] Dvwwlozzld[address] [place] [address]Dr. Chrissy Frazier Albumin/Globulin [Mass ratio] 1.0 {ratio} Normal [facility] Comment on above: Performed By: #### L IPA, CMP, TERRENCE ####[facility] Klxlnkmahb[address] [place] [address]Dr. Chrissy Frazier ALP [Catalytic activity/Vol] 92 U/L Normal 46-116 [facility] Comment on above: Performed By: #### L IPA, CMP, TERRENCE ####[facility] Expugopmlb[address] [place] [address]Dr. Chrissy Frazier ALT [Catalytic activity/Vol] 26 U/L Normal 16-63 [facility] Comment on above: Performed By: #### L IPA, CMP, TERRENCE ####[facility] Iwywyaxwir[address] [place] [address]Dr. Chrissy Frazier Anion gap [Moles/Vol] 19.5 mmol/L Normal [facility] Comment on above: Performed By: #### L IPA, CMP, TERRENCE ####[facility] Gyjoppmnbe[address] [place], [place] [address]Dr. Chrissy Frazier AST [Catalytic activity/Vol] 19 U/L Normal 15-37 [facility] Comment on above: Performed By: #### L IPA, CMP, TERRENCE ####[facility] Jpuoqdbgqb[address] [place], [place] [address]Dr. Chrissy Frazier Bilirubin [Mass/Vol] 0.7 mg/dL Normal 0.2-1.0 [facility] Comment on above: Performed By: #### L IPA, CMP, TERRENCE ####[facility] Spvmygqvlj[address] [place] [address]Dr. Chrissy Frazier Calcium [Mass/Vol] 9.6 mg/dL Normal 8.5-10.1 [facility] Comment on above: Performed By: #### L IPA, CMP, TERRENCE ####[facility] Wpncwrvsga[address] [place] [address]Dr. Chrissy Frazier Chloride [Moles/Vol] 102 mmol/L Normal 98-107 [facility] Comment on above: Performed By: #### L IPA, CMP, TERRENCE ####[facility] Pylztvlepc[address] [place] [address]Dr. Chrissy Frazier CO2 [Moles/Vol] 19.1 mmol/L Critically low 21.0-32.0 [facility] Comment on above: Performed By: #### L IPA CMP, TERRENCE ####[facility] Mumtlnlbpc14[address] [place] [address]Dr. Chrissy Frazier Creatinine [Mass/Vol] 1.47 mg/dL Critically high 0.70-1.30 [facility] Comment on above: Performed By: #### L IPA CMP, TERRENCE ####[facility] Skfgzripyp059[address] [place], [place] [address]Dr. Chrissy Freddie EGFR-AF [place] >60 Normal >=60 [facility] Comment on above: Performed By: #### L IPA CMP, TERRENCE ####[facility] Cztgcsnhqg97[address] [place], [place] [address]Dr. Tishrowan Freddie EGFR-NON AF [place] 56 mL/min/1.73m2 Critically low >=60 [facility] Comment on above: Performed By: #### L IPA CMP, TERRENCE ####[facility] Xrtdtcpoyv35[address] [place], [place] [address]Dr. Chrissy Frazier Globulin (S) [Mass/Vol] 4.3 g/dL Normal [facility] Comment on above: Performed By: #### L IPA CMP, TERRENCE ####[facility] Ntinoctstf[address] [place], [place] [address]Dr. Chrissy Frazier Glucose [Mass/Vol] 189 mg/dL Critically high 74-106 [facility] Comment on above: Performed By: #### L IPA CMP, TERRENCE ####[facility] Enfanmgcyr54[address] [place], [place] [address]Dr. Chrissy Frazier Potassium [Moles/Vol] 4.6 mmol/L Normal 3.5-5.1 [facility] Comment on above: Performed By: #### L IPA CMP, TERRENCE ####[facility] Jdalhdfsqk[address] [place], [place] [address]Dr. Chrissy Frazier Protein [Mass/Vol] 8.5 g/dL Critically high 6.4-8.2 [facility] Comment on above: Performed By: #### L IPA CMP, TERRENCE ####[facility] Sndbonynkz9168 [place] [id number]. Chrissy Freddie Sodium [Moles/Vol] 136 mmol/L Normal 136-145 [facility] Comment on above: Performed By: #### L IPA, CMP, TERRENCE ####[facility] Hbcavopzuw39[address] [place] [address]Dr. Chrissy Freddie Urea nitrogen [Mass/Vol] 16.0 mg/dL Normal 7.0-18.0 [facility] Comment on above: Performed By: #### L IPA, CMP, TERRENCE ####[facility] Gijawbiqtt17[address] [place] [address]Dr. Tishrowan Frazier Urea nitrogen/Creatinine [Mass ratio] 10.9 mg/mg Normal [facility] Comment on above: Performed By: #### L IPA, CMP, TERRENCE ####[facility] Rnirpmyftr[address] [place], [place] [address]Dr. Tishrowan Frazier AMYLASEon 09-03-2022 Amylase [Catalytic activity/Vol] 25 U/L Normal 25-115 [facility] Comment on above: Performed By: #### L IPA, TERRENCE, CMP ####[facility] Vokvaoiuyy286[address] [place], [place] [address]Dr. Chrissy Frazier CBC AUTO DIFFon 09-03-2022 BASO # 0.0 103/ul Normal 0.0-0.1 [facility] Comment on above: Performed By: #### C BC ####[facility] Aukqonyiiv076[address] [place], [place] [address]Dr. Chrissy Frazier Basophils/100 WBC (Bld) 0.1 % Critically low 0.2-2.0 [facility] Comment on above: Performed By: #### C BC ####[facility] Zdruhqbevt[address] [place], [place] [address]Dr. Chrissy Frazier EO # 0.0 103/ul Normal 0.0-0.7 [facility] Comment on above: Performed By: #### C BC ####[facility] Vyabpykjdl8434[address] [place], [place] [address]Dr. Chrissy Frazier Eosinophils/100 WBC (Bld) 0.1 % Critically low 0.9-7.0 [facility] Comment on above: Performed By: #### C BC ####[facility] Utryeutyte[address] [place] [address]Dr. Chrissy Frazier Erythrocyte distribution width (RBC) [Ratio] 14.0 % Normal 11.0-15.0 [facility] Comment on above: Performed By: #### C BC ####[facility] Qvzxrbbuuv98[address] [place] [address]Dr. Chrissy Frazier Hematocrit (Bld) [Volume fraction] 42.5 % Normal 42.0-54.0 [facility] Comment on above: Performed By: #### C BC ####[facility] Nshqthoprm[address] [place], [place] [address]Dr. Chrissy Frazier Hemoglobin (Bld) [Mass/Vol] 14.1 g/dL Normal 14.0-18.0 [facility] Comment on above: Performed By: #### C BC ####[facility] Zlqhtcpkkb12[address] [place], [place] [address]Dr. Chrissy Frazier IG # 0.06 10e3/ul Critically high 0.00-0.03 [facility] Comment on above: Performed By: #### C BC ####[facility] Ewbwpphmjf[address] [place], [place] [address]Dr. Chrissy Frazier IG % 0.4 % Normal 0.0-0.5 [facility] Comment on above: Performed By: #### C BC ####[facility] Lwkovutdfv874[address] [place], [place] [address]Dr. Chrissy Frazier LYMPH # 2.5 103/ul Normal 1.2-3.8 [facility] Comment on above: Performed By: #### C BC ####[facility] Xbxybuufxn[address] [place], [place] [address]Dr. Chrissy Frazier Lymphocytes/100 WBC (Bld) 16.3 % Critically low 20.5-60.0 [facility] Comment on above: Performed By: #### C BC ####[facility] Fbdnkhhyne369[address] [place], [place] [address]Dr. Chrissy Frazier MANUAL DIFF REQ NO Normal [facility] Comment on above: Performed By: #### C BC ####[facility] Qnrbhowttq7200 [place] [id number] Chrissy Freddie MCH (RBC) [Entitic mass] 28.1 pg Normal 25.9-34.0 [facility] Comment on above: Performed By: #### C BC ####[facility] Akobzigdiv0251 [place] [address]Dr. Chrissy Frazier MCHC (RBC) [Mass/Vol] 33.2 g/dL Normal 29.9-35.2 [facility] Comment on above: Performed By: #### C BC ####[facility] Rnghjtudmv6069 [place] [address]DrNancy Frazier MCV (RBC) [Entitic vol] 84.8 fL Normal 80.0-94.0 [facility] Comment on above: Performed By: #### C BC ####[facility] Jyjlrvtvip[address] [place], [place] [address]DrNancy Frazier MONO # 1.1 103/ul Critically high 0.3-0.8 [facility] Comment on above: Performed By: #### C BC ####[facility] Fqolndmtnr640[address] [place], [place] [address]DrNancy Frazier Monocytes/100 WBC (Bld) 7.4 % Normal 1.7-12.0 [facility] Comment on above: Performed By: #### C BC ####[facility] Ubmlxjnbbc20[address] [place], [place] [address]DrNancy Frazier NEUT # 11.5 103/ul Critically high 1.4-6.5 [facility] Comment on above: Performed By: #### C BC ####[facility] Mbigxkosli[address] [place], [place] [id number] Frazier Neutrophils/100 WBC (Bld) 75.7 % Critically high 43.0-75.0 [facility] Comment on above: Performed By: #### C BC ####[facility] Owxpwybjbd88[address] [place], [place] [address]DrNancy Frazier Platelet mean volume (Bld) [Entitic vol] 10.6 fL Normal 9.5-13.5 [facility] Comment on above: Performed By: #### C BC ####[facility] Rbgkwatiyi6355 [place] [address]Dr. Chrissy Frazier PLT 310 103/ul Normal 150-450 [facility] Comment on above: Performed By: #### C BC ####[facility] Wzdgfxherb5541 [place] [address]Dr. Chrissy Frazier RBC 5.01 106/ul Normal 4.70-6.10 [facility] Comment on above: Performed By: #### C BC ####[facility] Nnaftbisca49[address] [place] [address]Dr. Chrissy Frazier WBC 15.2 103/ul Critically high 4.0-11.0 [facility] Comment on above: Performed By: #### C BC ####[facility] Apxpoogjvq955[address] [place], [place] [address]Dr. Chrissy Frazier LIPASEon 09-03-2022 Lipase [Catalytic activity/Vol] 46.0 U/L Critically low 73.0-393.0 [facility] Comment on above: Performed By: #### L TERRENCE VICTORIA, CMP ####[facility] Kgutnksfmy[address] [place], [place] [address]Dr. Chrissy Frazier PROF 14(COMP METB)on 022 Albumin [Mass/Vol] 3.7 g/dL Normal 3.4-5.0 [facility] Comment on above: Performed By: #### L TERRENCE VICTORIA, CMP ####[facility] Fwxolgoong1418[address] [place], [place] [address]Dr. Chrissy Frazier Albumin/Globulin [Mass ratio] 1.0 {ratio} Normal [facility] Comment on above: Performed By: #### L TERRENCE VICTORIA, CMP ####[facility] Rdxgfqaptq43[address] [place], [place] [address]Dr. Chrissy Frazier ALP [Catalytic activity/Vol] 65 U/L Normal 46-116 [facility] Comment on above: Performed By: #### L TERRENCE VICTORIA, CMP ####[facility] Oxwapfmpqe4284 [place] [address]Dr. Chrissy Frazier ALT [Catalytic activity/Vol] 42 U/L Normal 16-63 [facility] Comment on above: Performed By: #### L TERRENCE VICTORIA, CMP ####[facility] Oluqwyiwkc75[address] [place] [address]Dr. Chrissy Frazier Anion gap [Moles/Vol] 14.4 mmol/L Normal [facility] Comment on above: Performed By: #### L TERRENCE VICTORIA, CMP ####[facility] Ckrjtwtipl23[address] [place], [place] [address]Dr. Chrissy Frazier AST [Catalytic activity/Vol] 16 U/L Normal 15-37 [facility] Comment on above: Performed By: #### L TERRENCE VICTORIA, CMP ####[facility] Yzdyfzygeu029[address] [place], [place] [address]Dr. Chrissy Frazier Bilirubin [Mass/Vol] 0.4 mg/dL Normal 0.2-1.0 [facility] Comment on above: Performed By: #### L TERRENCE VICTORIA, CMP ####[facility] Luaeofqsvz167[address] [place], [place] [address]Dr. Chrissy Frazier Calcium [Mass/Vol] 8.7 mg/dL Normal 8.5-10.1 [facility] Comment on above: Performed By: #### L TERRENCE VICTORIA, CMP ####[facility] Tpiyytfwit[address] [place], [place] [address]Dr. Chrissy Frazier Chloride [Moles/Vol] 105 mmol/L Normal 98-107 [facility] Comment on above: Performed By: #### L TERRENCE VICTORIA, CMP ####[facility] Oabutelzbt5[address] [place] [address]Dr. Chrissy Frazier CO2 [Moles/Vol] 22.6 mmol/L Normal 21.0-32.0 [facility] Comment on above: Performed By: #### L TERRENCE VICTORIA, CMP ####[facility] Bchgsnbnxt8[address] [place], [place] [address]Dr. Chrissy Frazier Creatinine [Mass/Vol] 1.11 mg/dL Normal 0.70-1.30 [facility] Comment on above: Performed By: #### L IPA TERRENCE, CMP ####[facility] Jxzskqgfiq7799 [place] [address]Dr. Chrissy Frazier EGFR-AF [place] >60 Normal >=60 [facility] Comment on above: Performed By: #### L IPA TERRENCE, CMP ####[facility] Dazprnmoct1437 [place] [address]Dr. Chrissy Frazier EGFR-NON AF [place] >60 Normal >=60 [facility] Comment on above: Performed By: #### L IPA TERRENCE, CMP ####[facility] Gsozpgltey70[address] [place] [address]Dr. Chrissy Frazier Globulin (S) [Mass/Vol] 3.7 g/dL Normal [facility] Comment on above: Performed By: #### L JULIEN TERRENCE, CMP ####[facility] Dmduczpsrx3038 [place] [address]Dr. Chrissy Frazier Glucose [Mass/Vol] 121 mg/dL Critically high 74-106 [facility] Comment on above: Performed By: #### L JULIEN TERRENCE, CMP ####[facility] Pviosqymdl2128 [place] [address]Dr. Chrissy Frazier Potassium [Moles/Vol] 4.0 mmol/L Normal 3.5-5.1 [facility] Comment on above: Performed By: #### L JULIEN TERRENCE, CMP ####[facility] Vtyjztsdmx4471 [place] [address]Dr. Chrissy Frazier Protein [Mass/Vol] 7.4 g/dL Normal 6.4-8.2 [facility] Comment on above: Performed By: #### L JULIEN TERRENCE, CMP ####[facility] Dvnlpuuoec9227 [place] [address]Dr. Chrissy Frazier Sodium [Moles/Vol] 138 mmol/L Normal 136-145 [facility] Comment on above: Performed By: #### L IPA TERRENCE, CMP ####[facility] Hlncepdfpc1805 [place] [address]Dr. Chrissy Frazier Urea nitrogen [Mass/Vol] 6.0 mg/dL Critically low 7.0-18.0 [facility] Comment on above: Performed By: #### L IPA, TERRENCE, CMP ####[facility] Jjuyftauqs[address] [place], [place] [address]Dr. Chrissy Frazier Urea nitrogen/Creatinine [Mass ratio] 5.4 mg/mg Normal [facility] Comment on above: Performed By: #### L IPA, TERRENCE, CMP ####[facility] Xahmeanhrs40[address] [place], [place] [address]Dr. Chrissy Frazier AMYLASEon 09-02-2022 Amylase [Catalytic activity/Vol] 29 U/L Normal 25-115 [facility] Comment on above: Performed By: #### A MY, CMP, LIPA ####[facility] Vpfqrxwdvq[address] [place], [place] [address]Dr. Chrissy Frazier CBC AUTO DIFFon 09-02-2022 BASO # 0.1 103/ul Normal 0.0-0.1 [facility] Comment on above: Performed By: #### C BC ####[facility] Narlecqcps408[address] [place], [place] [address]Dr. Chrissy Frazier Basophils/100 WBC (Bld) 0.4 % Normal 0.2-2.0 [facility] Comment on above: Performed By: #### C BC ####[facility] Xnathnplep[address] [place], [place] [address]Dr. Chrissy Frazier EO # 0.1 103/ul Normal 0.0-0.7 [facility] Comment on above: Performed By: #### C BC ####[facility] Ebhhcnhcgk658[address] [place], [place] [address]Dr. Chrissy Frazier Eosinophils/100 WBC (Bld) 0.7 % Critically low 0.9-7.0 [facility] Comment on above: Performed By: #### C BC ####[facility] Pwdosumodl[address] [place], [place] [address]Dr. Chrissy Frazier Erythrocyte distribution width (RBC) [Ratio] 13.7 % Normal 11.0-15.0 [facility] Comment on above: Performed By: #### C BC ####[facility] Jbukjnwsya1654 [place] [address]Dr. Chrissy Frazier Hematocrit (Bld) [Volume fraction] 48.3 % Normal 42.0-54.0 [facility] Comment on above: Performed By: #### C BC ####[facility] Lmdvgdqhwz6129 [place] [address]Dr. Chrissy Frazier Hemoglobin (Bld) [Mass/Vol] 16.0 g/dL Normal 14.0-18.0 [facility] Comment on above: Performed By: #### C BC ####[facility] Rvleykgvbp9517 [place] [address]Dr. Chrissy Freddie IG # 0.09 10e3/ul Critically high 0.00-0.03 [facility] Comment on above: Performed By: #### C BC ####[facility] Ibyksbqehy22[address] [place] [address]Dr. Chrissy Frazier IG % 0.5 % Normal 0.0-0.5 [facility] Comment on above: Performed By: #### C BC ####[facility] Hoytdysjhm6[address] [place] [address]Dr. Tishrowan Frazier LYMPH # 3.7 103/ul Normal 1.2-3.8 [facility] Comment on above: Performed By: #### C BC ####[facility] Veikkjvbzv69[address] [place] [address]Dr. Tishrowan Frazier Lymphocytes/100 WBC (Bld) 21.5 % Normal 20.5-60.0 [facility] Comment on above: Performed By: #### C BC ####[facility] Fltiduunla9386 [place] [address]Dr. Tishrowan Frazier MANUAL DIFF REQ NO Normal [facility] Comment on above: Performed By: #### C BC ####[facility] Nsiioyvzov69[address] [place] [address]Dr. Chrissy Freddie MCH (RBC) [Entitic mass] 28.1 pg Normal 25.9-34.0 [facility] Comment on above: Performed By: #### C BC ####[facility] Ampiybzbgh0677 [place] [address]Dr. Chrissy Frazier MCHC (RBC) [Mass/Vol] 33.1 g/dL Normal 29.9-35.2 [facility] Comment on above: Performed By: #### C BC ####[facility] Qboejahzbx5145 [place] [address]Dr. Chrissy Frazier MCV (RBC) [Entitic vol] 84.7 fL Normal 80.0-94.0 [facility] Comment on above: Performed By: #### C BC ####[facility] Xrakdllkyj4508 [place] [address]Dr. Chrissy Frazier MONO # 0.7 103/ul Normal 0.3-0.8 [facility] Comment on above: Performed By: #### C BC ####[facility] Ezyaepprrd1335 [place] [address]Dr. Chrissy Frazier Monocytes/100 WBC (Bld) 4.2 % Normal 1.7-12.0 [facility] Comment on above: Performed By: #### C BC ####[facility] Tivcjknyoc[address] [place], [place] [address]Dr. Chrissy Frazier NEUT # 12.4 103/ul Critically high 1.4-6.5 [facility] Comment on above: Performed By: #### C BC ####[facility] Ermpvzlnur8175 [place] [address]Dr. Chrissy Frazier Neutrophils/100 WBC (Bld) 72.7 % Normal 43.0-75.0 [facility] Comment on above: Performed By: #### C BC ####[facility] Vhftdggsxk6592 [place] [address]Dr. Chrissy Frazier Platelet mean volume (Bld) [Entitic vol] 10.9 fL Normal 9.5-13.5 [facility] Comment on above: Performed By: #### C BC ####[facility] Awhrgthcmr5470 [place] [address]Dr. Chrissy Freddie PLT 386 103/ul Normal 150-450 [facility] Comment on above: Performed By: #### C BC ####[facility] Mgalmsdrrp8166 [place], [place] [address]Il. Chrissy Frazier RBC 5.70 106/ul Normal 4.70-6.10 [facility] Comment on above: Performed By: #### C BC ####[facility] Fqkxqugwtk8857 [place] [address]Dr. Chrissy Frazier WBC 17.0 103/ul Critically high 4.0-11.0 [facility] Comment on above: Performed By: #### C BC ####[facility] Gwknzatryp9031 [place] [address]Dr. Chrissy Frazier Covid-19 PCR (CVDTBH)on 08-21 SARS-CoV-2 (COVID-19) RNA RHIANNON+probe Ql (Unsp spec) Not detected Normal NOT DETECTED [facility] Comment on above: Result Comment: When [...] for this test is supported by the [employer]ist of Health and Human Service's declaration that [...] be used). Performed By: #### C VDTBH ####[facility] Hdjukizqnv4460 [place] [address]Dr. Chrissy Frazier LACTATE/LACTIC ACIDon 2021 Lactate [Moles/Vol] 7.1 mmol/L Critically high 0.4-1.9 [facility] Comment on above: Performed By: #### L ACT ####[facility] Choauedvia4034 [place] [address]Dr. Chrissy Frazier Lactate [Moles/Vol] 8.6 mmol/L Critically high 0.4-1.9 [facility] Comment on above: Performed By: #### L ACT ####[facility] Thmmyqrean[address] [place], [place] [address]Dr. Chrissy Frazier LIPASEon 09-02-2022 Lipase [Catalytic activity/Vol] 60.0 U/L Critically low 73.0-393.0 [facility] Comment on above: Performed By: #### A MY, CMP, LIPA ####[facility] Ujscqvqxxn[address] [place], [place] [address]Dr. Chrissy Frazier POINT OF CARE GLUCOSEon 08-21 Glucose [Mass/Vol] 140 mg/dL Critically high 74-106 [facility] Comment on above: Performed By: #### P OCGLUC ####[facility] Mnprnvevum[address] [place], [place] [address]Dr. Chrissy Frazier PROF 14(COMP METB)on 022 Albumin [Mass/Vol] 4.3 g/dL Normal 3.4-5.0 [facility] Comment on above: Performed By: #### A MY, CMP, LIPA ####[facility] Jzfbhtpkpz[address] [place], [place] [address]Dr. Chrissy Frazier Albumin/Globulin [Mass ratio] 1.0 {ratio} Normal [facility] Comment on above: Performed By: #### A MY, CMP, LIPA ####[facility] Kmslymajpf[address] [place] [address]Dr. Chrissy Frazier ALP [Catalytic activity/Vol] 82 U/L Normal 46-116 [facility] Comment on above: Performed By: #### A MY, CMP, LIPA ####[facility] F[address]zhkuk[address] [place] [address]Dr. Chrissy Frazier ALT [Catalytic activity/Vol] 48 U/L Normal 16-63 [facility] Comment on above: Performed By: #### A MY, CMP, LIPA ####[facility] Kqzskxyinh[address] [place] [address]Dr. Chrissy Frazier Anion gap [Moles/Vol] 25.3 mmol/L Normal [facility] Comment on above: Performed By: #### A MY, CMP, LIPA ####[facility] Izazrtwamh4[address] [place] [address]Dr. Chrissy Frazier AST [Catalytic activity/Vol] 33 U/L Normal 15-37 [facility] Comment on above: Performed By: #### A MY, CMP, LIPA ####[facility] Sjowefsqjj[address] [place], [place] [address]Dr. Chrissy Frazier Bilirubin [Mass/Vol] 0.7 mg/dL Normal 0.2-1.0 The [facility] Comment on above: Performed By: #### A MY, CMP, LIPA ####[facility] Htwqhlhidz[address] [place], [place] [address]Dr. Chrissy Frazier Calcium [Mass/Vol] 9.5 mg/dL Normal 8.5-10.1 [facility] Comment on above: Performed By: #### A MY, CMP, LIPA ####[facility] Bxngugpjpw[address] [place], [place] [address]Dr. Chrissy Frazier Chloride [Moles/Vol] 100 mmol/L Normal 98-107 The [facility] Comment on above: Performed By: #### A MY, CMP, LIPA ####[facility] Qxykfogwqs[address] [place], [place] [address]Dr. Chrissy Frazier CO2 [Moles/Vol] 14.2 mmol/L Critically low 21.0-32.0 The [facility] Comment on above: Performed By: #### A MY, CMP, LIPA ####[facility] Ckpymaakpr[address] [place], [place] [address]Dr. Chrissy Frazier Creatinine [Mass/Vol] 1.70 mg/dL Critically high 0.70-1.30 The [facility] Comment on above: Performed By: #### A MY, CMP, LIPA ####[facility] Lfeihrufkr89[address] [place], [place] [address]Dr. Chrissy Frazier EGFR-AF [place] 57 mL/min/1.73m2 Critically low >=60 The [facility] Comment on above: Performed By: #### A MY, CMP, LIPA ####[facility] Eoykzehwzs[address] [place] [id number]. Chrissy Frazier EGFR-NON AF [place] 47 mL/min/1.73m2 Critically low >=60 [facility] Comment on above: Performed By: #### A MY, CMP, LIPA ####[facility] Bokjreccwu[address] [place] [address]Dr. Chrissy Frazier Globulin (S) [Mass/Vol] 4.2 g/dL Normal [facility] Comment on above: Performed By: #### A MY, CMP, LIPA ####[facility] Ahnbikbqft[address] [place] [address]Dr. Chrissy Frazier Glucose [Mass/Vol] 212 mg/dL Critically high 74-106 [facility] Comment on above: Performed By: #### A MY, CMP, LIPA ####[facility] Huavexnwrp09[address] [place] [address]Dr. Chrissy Frazier Potassium [Moles/Vol] 3.5 mmol/L Normal 3.5-5.1 [facility] Comment on above: Performed By: #### A MY, CMP, LIPA ####[facility] Uuqhllqumc6[address] [place] [address]Dr. Chrissy Frazier Protein [Mass/Vol] 8.5 g/dL Critically high 6.4-8.2 [facility] Comment on above: Performed By: #### A MY, CMP, LIPA ####[facility] Xubjdyfcuw[address] [place] [address]Dr. Chrissy Frazier Sodium [Moles/Vol] 136 mmol/L Normal 136-145 [facility] Comment on above: Performed By: #### A MY, CMP, LIPA ####[facility] Tkozntmfez023[address] [place] [address]Dr. Chrissy Frazier Urea nitrogen [Mass/Vol] 9.0 mg/dL Normal 7.0-18.0 [facility] Comment on above: Performed By: #### A MY, CMP, LIPA ####[facility] Vevggoeazc[address] [place] [address]Dr. Yilan Frazier Urea nitrogen/Creatinine [Mass ratio] 5.3 mg/mg Normal The [facility] Comment on above: Performed By: #### A MY, CMP, LIPA ####[facility] Uqgoqkijym[address] [place], [place] [address]Dr. Chrissy Frazier AMYLASEon 07-07-2022 Amylase [Catalytic activity/Vol] 33 U/L Normal 25-115 The [facility] Comment on above: Performed By: #### C MP, TERRENCE, BNP, LIPA ####[facility] Ldepqhzhvk434[address] [place], [place] [address]Dr. Chrissy Frazier BNPon 07-07-2022 Natriuretic peptide B (Bld) [Mass/Vol] 29.0 pg/mL Normal <=450.0 The [facility] Comment on above: Performed By: #### C MP, TERRENCE, BNP, LIPA ####[facility] Atvuicrwho3815[address] [place], [place] [address]Dr. Chrissy Frazier CBC AUTO DIFFon 07-07-2022 BASO # 0.0 103/ul Normal 0.0-0.1 [facility] Comment on above: Performed By: #### C BC ####[facility] Aymvekrqtt567[address] [place], [place] [address]Dr. Chrissy Frazier Basophils/100 WBC (Bld) 0.4 % Normal 0.2-2.0 The [facility] Comment on above: Performed By: #### C BC ####[facility] Ughyecyfvw1617[address] [place], [place] [address]Dr. Chrissy Frazier EO # 0.3 103/ul Normal 0.0-0.7 The [facility] Comment on above: Performed By: #### C BC ####[facility] Amjlitoydk8[address] [place], [place] [address]Dr. Chrissy Frazier Eosinophils/100 WBC (Bld) 3.0 % Normal 0.9-7.0 The [facility] Comment on above: Performed By: #### C BC ####[facility] Qmprgngnyl2810[address] [place], [place] [address]Dr. Chrissy Frazier Erythrocyte distribution width (RBC) [Ratio] 14.0 % Normal 11.0-15.0 [facility] Comment on above: Performed By: #### C BC ####[facility] Sunrxsfnjg[address] [place] [address]DrNancy Frazier Hematocrit (Bld) [Volume fraction] 42.8 % Normal 42.0-54.0 [facility] Comment on above: Performed By: #### C BC ####[facility] Hifzcgqihq68[address] [place] [address]DrNancy Frazier Hemoglobin (Bld) [Mass/Vol] 14.3 g/dL Normal 14.0-18.0 The [facility] Comment on above: Result Comment: IV F LUIDS RUNNING Performed By: #### C BC ####[facility] Bquatnmzoy[address] [place], [place] [address]DrNancy Frazier IG # 0.05 10e3/ul Critically high 0.00-0.03 [facility] Comment on above: Performed By: #### C BC ####[facility] Smeqpdmujd34[address] [place], [place] [address]DrNancy Frazier IG % 0.5 % Normal 0.0-0.5 [facility] Comment on above: Performed By: #### C BC ####[facility] Hwicuhpbrf33[address] [place], [place] [address]DrNancy Frazier LYMPH # 2.4 103/ul Normal 1.2-3.8 The [facility] Comment on above: Performed By: #### C BC ####[facility] Iedgeobboa14[address] [place], [place] [address]DrNancy Frazier Lymphocytes/100 WBC (Bld) 25.5 % Normal 20.5-60.0 The [facility] Comment on above: Performed By: #### C BC ####[facility] Raryjjckjv538[address] [place], [place] [address]DrNancy Frazier MANUAL DIFF REQ NO Normal [facility] Comment on above: Performed By: #### C BC ####[facility] Jpqilrdwpp7434 [place] [address]DrNancy Frazier MCH (RBC) [Entitic mass] 28.5 pg Normal 25.9-34.0 [facility] Comment on above: Performed By: #### C BC ####[facility] Eummptuhbv1565 [place] [address]Dr. Chrissy Frazier MCHC (RBC) [Mass/Vol] 33.4 g/dL Normal 29.9-35.2 [facility] Comment on above: Performed By: #### C BC ####[facility] Pylozcagtw[address] [place] [address]Dr. Chrissy Frazier MCV (RBC) [Entitic vol] 85.3 fL Normal 80.0-94.0 [facility] Comment on above: Performed By: #### C BC ####[facility] Awdrdkhvjv[address] [place], [place] [address]DrNancy Frazier MONO # 0.7 103/ul Normal 0.3-0.8 The [facility] Comment on above: Performed By: #### C BC ####[facility] Zmjlziqrob6600[address] [place], [place] [address]Dr. Chrissy Frazier Monocytes/100 WBC (Bld) 7.8 % Normal 1.7-12.0 The [facility] Comment on above: Performed By: #### C BC ####[facility] Sxemmcojun[address] [place], [place] [address]Dr. Chrissy Frazier NEUT # 5.8 103/ul Normal 1.4-6.5 The [facility] Comment on above: Performed By: #### C BC ####[facility] Iqvdhspuli[address] [place], [place] [address]Dr. Chrissy Frazier Neutrophils/100 WBC (Bld) 62.8 % Normal 43.0-75.0 The [facility] Comment on above: Performed By: #### C BC ####[facility] Eijfvbublg[address] [place], [place] [address]Dr. Chrissy Frazier Platelet mean volume (Bld) [Entitic vol] 10.8 fL Normal 9.5-13.5 The [facility] Comment on above: Performed By: #### C BC ####[facility] Pkoxxtwoib7[address] [place], [place] [address]Dr. Chrissy Frazier PLT 310 103/ul Normal 150-450 The [facility] Comment on above: Performed By: #### C BC ####[facility] Tqbrdfgxks4192 [place] [address]Dr. Chrissy Frazier RBC 5.02 106/ul Normal 4.70-6.10 The [facility] Comment on above: Performed By: #### C BC ####[facility] Jzoaokrctc1115 [place], [place] [address]Kq. Chrissy Frazier WBC 9.3 103/ul Normal 4.0-11.0 [facility] Comment on above: Performed By: #### C BC ####[facility] Rklvuaqofu5381 [place] [address]Dr. Tishrowan Freddie CULTURE URINEon 07-07-2022 CULTURE URINE Culture Observations: NO GROWTH. Normal The [facility] Comment on above: Performed By: #### U RCX ####[facility] Zofaasazhu3330 [place] [address]Dr. Chrissy Frazier DRUG SCREEN RAPID (URINE)on 07-07-2022 AMP Negative Normal NEGATIVE [facility] Comment on above: Performed By: #### D RUGRPD ####[facility] Dsxhjttrch[address] [place] [address]Dr. Chrissy Frazier BAR Negative Normal NEGATIVE [facility] Comment on above: Performed By: #### D RUGRPD ####[facility] Ctmnaebetc1396 [place] [address]Dr. Chrissy Frazier BUP Negative Normal NEGATIVE The [facility] Comment on above: Performed By: #### D RUGRPD ####[facility] Inlvfiowei6480 [place] [address]Dr. Chrissy Frazier BZO Positive Abnormal NEGATIVE The [facility] Comment on above: Performed By: #### D RUGRPD ####[facility] Fcvpuxarzq2185 [place] [address]Dr. Chrissy Frazier LAUREN Negative Normal NEGATIVE The [facility] Comment on above: Performed By: #### D RUGRPD ####[facility] Jklffshvrh8699 [place] [address]Dr. Chrissy Frazier CUT-OFFS SEE BELOW Normal The [facility] Comment on above: Result Comment: AMP (Amphetamine): 500ng/mL, BAR (Barbituates): 200 ng/mL, BZO (Benzodiazepines): 150 ng/mL, BUP (Buprenorphine): 10 ng/mL, LAUREN (Cocaine): 150 ng/mL, mAMP (Methamphetamine): 500 ng/mL, MTD (Methadone): 200 ng/mL, OPI (Opiates): 100 ng/mL, OXY (Oxycodone): 100 ng/mL, PCP (Phencyclidine): 25 ng/mL, PPX (Propoxyphene): 300 ng/mL, THC (Cannabinoids): 50 ng/mL, TCA (Trycyclic Antidepressants): 300 ng/mL Performed By: #### D RUGRPD ####[facility] Lmaafoajje[address] [place], [place] [address]Dr. [facility] DRUG CUT HEADER DRUG CLASS TEST SYSTEM CUT-OFF CONCENTRATIONS ARE FOLLOWS: Normal The [facility] Comment on above: Performed By: #### D RUGRPD ####[facility] Vohwqnfoso21[address] [place], [place] [address]Dr. Tishrowan [facility] mAMP Negative Normal NEGATIVE The [facility] Comment on above: Performed By: #### D RUGRPD ####[facility] Szkqdntdfl89[address] [place], [place] [address]Dr. Chrissy [facility] MTD Negative Normal NEGATIVE The [facility] Comment on above: Performed By: #### D RUGRPD ####[facility] Wnwhvwouib[address] [place], [place] [address]Dr. Chrissy [facility] OPI Negative Normal NEGATIVE The [facility] Comment on above: Performed By: #### D RUGRPD ####[facility] Hgaznbsyyd258[address] [place], [place] [address]Dr. Chrissy Frazier OXY Negative Normal NEGATIVE The [facility] Comment on above: Performed By: #### D RUGRPD ####[facility] Itsxomlzgd449[address] [place], [place] [address]Dr. Chrissy [facility] PCP Negative Normal NEGATIVE The [facility] Comment on above: Performed By: #### D RUGRPD ####[facility] Cdnsibimku69[address] [place], [place] [address]Dr. Chrissy Freddie PPX Negative Normal NEGATIVE The [facility] Comment on above: Performed By: #### D RUGRPD ####[facility] Dwzrjuoviv2155 [place] [address]Dr. Chrissy Freddie TCA Positive Abnormal NEGATIVE The [facility] Comment on above: Performed By: #### D RUGRPD ####[facility] Dyqxjnyosw4169 [place] [address]Dr. Chrissy Freddie THC Positive Abnormal NEGATIVE The [facility] Comment on above: Performed By: #### D RUGRPD ####[facility] Ccryofpljp8179 [place] [address]Dr. Tishrowan Frazier LIPASEon 07-07-2022 Lipase [Catalytic activity/Vol] 118.0 U/L Normal 73.0-393.0 [facility] Comment on above: Performed By: #### L IPA ####[facility] Zulmgbqnmt025[address] [place], [place] [address]Dr. Chrissy Frazier Lipase [Catalytic activity/Vol] 114.0 U/L Normal 73.0-393.0 [facility] Comment on above: Performed By: #### C MP, TERRENCE, BNP, LIPA ####[facility] Bivzdvejdz8610[address] [place], [place] [address]Dr. Chrissy Frazier PROF 14(COMP METB)on 022 Albumin [Mass/Vol] 3.4 g/dL Normal 3.4-5.0 [facility] Comment on above: Performed By: #### C MP, TERRENCE, BNP, LIPA ####[facility] Qilixpbhuo8443 [place] [address]Dr. Chrissy Frazier Albumin/Globulin [Mass ratio] 1.1 {ratio} Normal [facility] Comment on above: Performed By: #### C MP, TERRENCE, BNP, LIPA ####[facility] Cppcqinifk7646 [place] [address]Dr. Chrissy Frazier ALP [Catalytic activity/Vol] 68 U/L Normal 46-116 The [facility] Comment on above: Performed By: #### C MP, TERRENCE, BNP, LIPA ####[facility] Lwgqeyayjr4553 [place] [address]Dr. Chrissy Frazier ALT [Catalytic activity/Vol] 93 U/L Critically high 16-63 The [facility] Comment on above: Performed By: #### C MP, TERRENCE, BNP, LIPA ####[facility] Xrrkbzytpg7762 [place] [address]Dr. Chrissy Frazier Anion gap [Moles/Vol] 14.4 mmol/L Normal The [facility] Comment on above: Performed By: #### C MP, TERRENCE, BNP, LIPA ####[facility] Mvpvhquwwl5607 [place] [address]Dr. Chrissy Frazier AST [Catalytic activity/Vol] 33 U/L Normal 15-37 The [facility] Comment on above: Performed By: #### C MP, TERRENCE, BNP, LIPA ####[facility] Spsljqtuvx7150 [place] [address]Dr. Chrissy Frazier Bilirubin [Mass/Vol] 0.9 mg/dL Normal 0.2-1.0 [facility] Comment on above: Performed By: #### C MP, TERRENCE, BNP, LIPA ####[facility] Yullxxgdta[address] [place], [place] [address]Dr. Chrissy Frazier Calcium [Mass/Vol] 8.2 mg/dL Critically low 8.5-10.1 Th e [facility] Comment on above: Performed By: #### C MP, TERRENCE, BNP, LIPA ####[facility] Ujnyqlvytn47[address] [place], [place] [address]Dr. Chrissy Frazier Chloride [Moles/Vol] 103 mmol/L Normal 98-107 The [facility] Comment on above: Performed By: #### C MP, TERRENCE, BNP, LIPA ####[facility] Kmikjysewr[address] [place], [place] [address]Dr. Chrissy Frazier CO2 [Moles/Vol] 22.9 mmol/L Normal 21.0-32.0 [facility] Comment on above: Performed By: #### C MP, TERRENCE, BNP, LIPA ####[facility] Tublkfmvap16[address] [place], [place] [address]Dr. Chrissy Frazier Creatinine [Mass/Vol] 1.07 mg/dL Normal 0.70-1.30 The [facility] Comment on above: Performed By: #### C MP, TERRENCE, BNP, LIPA ####[facility] Zfmkobakge2304 [place] [address]Dr. Chrissy Frazier EGFR-AF [place] >60 Normal >=60 [facility] Comment on above: Performed By: #### C MP, TERRENCE, BNP, LIPA ####[facility] Otqdugeqey095[address] [place] [address]Dr. Chrissy Frazier EGFR-NON AF [place] >60 Normal >=60 The [facility] Comment on above: Performed By: #### C MP, TERRENCE, BNP, LIPA ####[facility] Scixekjmko1208 [place] [address]Dr. Chrissy Frazier Globulin (S) [Mass/Vol] 3.2 g/dL Normal The [facility] Comment on above: Performed By: #### C MP, TERRENCE, BNP, LIPA ####[facility] Sxngvkwjxb[address] [place], [place] [address]Dr. Chrissy Frazier Glucose [Mass/Vol] 96 mg/dL Normal 74-106 The [facility] Comment on above: Performed By: #### C MP, TERRENCE, BNP, LIPA ####[facility] Vouriyltxk6467 [place] [address]Dr. Chrissy Frazier Potassium [Moles/Vol] 3.3 mmol/L Critically low 3.5-5.1 The [facility] Comment on above: Performed By: #### C MP, TERRENCE, BNP, LIPA ####[facility] Wodiatubol5973 [place] [address]Dr. Chrissy Frazier Protein [Mass/Vol] 6.6 g/dL Normal 6.4-8.2 The [facility] Comment on above: Performed By: #### C MP, TERRENCE, BNP, LIPA ####[facility] Jlmipzotdi9316 [place] [address]Dr. Chrissy Frazier Sodium [Moles/Vol] 137 mmol/L Normal 136-145 The [facility] Comment on above: Performed By: #### C MP, TERRENCE, BNP, LIPA ####[facility] Lsyomofith38[address] [place], [place] [address]Dr. Chrissy Frazier Urea nitrogen [Mass/Vol] 13.0 mg/dL Normal 7.0-18.0 [facility] Comment on above: Performed By: #### C MP, TERRENCE, BNP, LIPA ####[facility] Yqrxytsngp16[address] [place], [place] [address]Dr. Chrissy Frazier Urea nitrogen/Creatinine [Mass ratio] 12.1 mg/mg Normal [facility] Comment on above: Performed By: #### C MP, TERRENCE, BNP, LIPA ####[facility] Cmdqvmehnk[address] [place], [place] [address]Dr. Chrissy Frazier UA RANDOM W/MICROSCOPICon BACTERIA TRACE Abnormal NONE SEEN [facility] Comment on above: Performed By: #### U AMIC ####[facility] Rqopzapxla34[address] [place], [place] [address]Dr. Chrissy Frazier Bilirubin Ql (U) Negative Normal NEGATIVE [facility] Comment on above: Performed By: #### U AMIC ####[facility] Brlzgynrot1744[address] [place], [place] [address]Dr. Chrissy Frazier CAST NONE SEEN Normal NONE SEEN [facility] Comment on above: Performed By: #### U AMIC ####[facility] Jgsjnxcabo014[address] [place], [place] [address]Dr. Chrissy Frazier Clarity (U) CLEAR Normal CLEAR The [facility] Comment on above: Performed By: #### U AMIC ####[facility] Wetczxhpcj14[address] [place], [place] [address]Dr. Chrissy Frazier Color (U) YELLOW Normal YELLOW The [facility] Comment on above: Performed By: #### U AMIC ####[facility] Ilsimkioqu350[address] [place], [place] [address]Dr. Chrissy Frazier Crystals LM Nom (Urine sed) SEEN Abnormal NONE SEEN [facility] Comment on above: Performed By: #### U AMIC ####[facility] Fwyqctksnk[address] [place], [place] [address]Dr. Chrissy Frazier Epithelial cells LM Ql (Urine sed) RARE Normal NONE SEEN /RARE The [facility] Comment on above: Performed By: #### U AMIC ####[facility] Dbdbbmrrtw9349 [place] [address]Dr. Chrissy Frazier Glucose Ql (U) Negative Normal NEGATIVE The [facility] Comment on above: Performed By: #### U AMIC ####[facility] Fzbccwyfjq[address] [place], [place] [address]Dr. Chrissy Frazier Hemoglobin Ql (U) Negative Normal NEGATIVE The [facility] Comment on above: Performed By: #### U AMIC ####[facility] Jorrpsplcb7364[address] [place], [place] [address]Dr. Chrissy Frazier Ketones Ql (U) 15 mg/dl Abnormal NEGATIVE The [facility] Comment on above: Performed By: #### U AMIC ####[facility] Yxwkokgokg8[address] [place], [place] [address]Dr. Chrissy Frazier LEUKOCYTES Negative Normal NEGATIVE The [facility] Comment on above: Performed By: #### U AMIC ####[facility] Jbkgnrrrva99[address] [place], [place] [address]Dr. Chrissy Frazier MUCOUS NONE SEEN Normal NONE SEEN The [facility] Comment on above: Performed By: #### U AMIC ####[facility] Zqnabbaavd25[address] [place], [place] [address]Dr. Chrissy Frazier Nitrite Ql (U) Negative Normal NEGATIVE The [facility] Comment on above: Performed By: #### U AMIC ####[facility] Okxtfxsjgj019[address] [place], [place] [address]Dr. Chrissy Frazier pH (U) 6.0 [pH] Normal 5-9 The [facility] Comment on above: Performed By: #### U AMIC ####[facility] Tajpjsoddq[address] [place], [place] [address]Dr. Chrissy Frazier RBC 0-2 Normal 0-2 [facility] Comment on above: Performed By: #### U AMIC ####[facility] Dlkoszidbr[address] [place], [place] [address]Dr. Chrissy Frazier SPEC GRAVITY 1.015 Normal 1.005-<=1.025 [facility] Comment on above: Performed By: #### U AMIC ####[facility] Eisxmbpwya[address] [place] [address]Dr. Chrissy Frazier UA PROTEIN Negative Normal NEGATIVE/ TRACE [facility] Comment on above: Performed By: #### U AMIC ####[facility] Utuiuswxkh5[address] [place] [address]Dr. Chrissy Frazier URIC ACID CRYSTALS RARE Normal [facility] Comment on above: Performed By: #### U AMIC ####[facility] Ikorxbnevc6215 [place] [address]Dr. Chrissy Freddie Urobilinogen Qn (U) 0.2 {Estrellita'U}/dL Normal 0.2 - 1. 0 [facility] Comment on above: Performed By: #### U AMIC ####[facility] Geuscplfte16[address] [place], [place] [address]Dr. Tishrowan Frazier WBC 0-2 Abnormal NONE SEEN The [facility] Comment on above: Performed By: #### U AMIC ####[facility] Uxpdrlfjfn034[address] [place], [place] [address]Dr. Chrissy Freddie AMYLASEon 07-06-2022 Amylase [Catalytic activity/Vol] 37 U/L Normal 25-115 [facility] Comment on above: Performed By: #### C MP, LIPA, TERRENCE ####[facility] Jelkdgjrqm068[address] [place], [place] [address]Dr. Chrissy Frazier CBC AUTO DIFFon 07-06-2022 BASO # 0.1 103/ul Normal 0.0-0.1 [facility] Comment on above: Performed By: #### C BC ####[facility] Rqykmzmktt264[address] [place], [place] [address]Dr. Tishrowan Frazier Basophils/100 WBC (Bld) 0.4 % Normal 0.2-2.0 [facility] Comment on above: Performed By: #### C BC ####[facility] Itjuwcazbj201[address] [place], [place] [address]Dr. Chrissy Frazier EO # 0.1 103/ul Normal 0.0-0.7 [facility] Comment on above: Performed By: #### C BC ####[facility] Ypnnwrlcqz5[address] [place] [address]Dr. Chrissy Frazier Eosinophils/100 WBC (Bld) 0.5 % Critically low 0.9-7.0 [facility] Comment on above: Performed By: #### C BC ####[facility] Fdxquvaprp28[address] [place], [place] [address]Dr. Chrissy Frazier Erythrocyte distribution width (RBC) [Ratio] 13.6 % Normal 11.0-15.0 [facility] Comment on above: Performed By: #### C BC ####[facility] Avsuaxfknb601[address] [place], [place] [address]Dr. Chrissy Frazier Hematocrit (Bld) [Volume fraction] 47.9 % Normal 42.0-54.0 [facility] Comment on above: Performed By: #### C BC ####[facility] Lokjiugpmx3490[address] [place], [place] [address]Dr. Chrissy Frazier Hemoglobin (Bld) [Mass/Vol] 16.4 g/dL Normal 14.0-18.0 [facility] Comment on above: Performed By: #### C BC ####[facility] Gsunpoifjb135[address] [place], [place] [address]Dr. Chrissy Frazier IG # 0.09 10e3/ul Critically high 0.00-0.03 [facility] Comment on above: Performed By: #### C BC ####[facility] Aqimkyyihb242[address] [place], [place] [address]Dr. Chrissy Frazier IG % 0.6 % Critically high 0.0-0.5 [facility] Comment on above: Performed By: #### C BC ####[facility] Npuvoxwqcm899[address] [place], [place] [address]Dr. Chrissy Frazier LYMPH # 2.5 103/ul Normal 1.2-3.8 [facility] Comment on above: Performed By: #### C BC ####[facility] Hlitplrggp596[address] [place], [place] [address]Dr. Chrissy Frazier Lymphocytes/100 WBC (Bld) 16.7 % Critically low 20.5-60.0 [facility] Comment on above: Performed By: #### C BC ####[facility] Ibazzxfpec6902 [place] [address]DrNancy Frazier MANUAL DIFF REQ NO Normal [facility] Comment on above: Performed By: #### C BC ####[facility] Pcvfbrvovg8671 [place] [address]DrNancy Frazier MCH (RBC) [Entitic mass] 28.1 pg Normal 25.9-34.0 [facility] Comment on above: Performed By: #### C BC ####[facility] Mswogakopr4500[address] [place], [place] [address]DrNancy Frazier MCHC (RBC) [Mass/Vol] 34.2 g/dL Normal 29.9-35.2 [facility] Comment on above: Performed By: #### C BC ####[facility] Gdjfyolcwp195[address] [place], [place] [address]DrNancy Frazier MCV (RBC) [Entitic vol] 82.2 fL Normal 80.0-94.0 [facility] Comment on above: Performed By: #### C BC ####[facility] Wdowkqutpk3530[address] [place], [place] [address]DrNancy Frazier MONO # 1.0 103/ul Critically high 0.3-0.8 [facility] Comment on above: Performed By: #### C BC ####[facility] Weeolptqkb6724[address] [place], [place] [address]DrNancy Frazier Monocytes/100 WBC (Bld) 6.7 % Normal 1.7-12.0 [facility] Comment on above: Performed By: #### C BC ####[facility] Eybjxvsunc5212[address] [place], [place] [address]DrNancy Frazier NEUT # 11.3 103/ul Critically high 1.4-6.5 [facility] Comment on above: Performed By: #### C BC ####[facility] Qbiteiiydh066[address] [place], [place] [address]DrNancy Frazier Neutrophils/100 WBC (Bld) 75.1 % Critically high 43.0-75.0 The [facility] Comment on above: Performed By: #### C BC ####[facility] Rnskfqmipk1722 [place] [address]Dr. Chrissy Frazier Platelet mean volume (Bld) [Entitic vol] 10.6 fL Normal 9.5-13.5 [facility] Comment on above: Performed By: #### C BC ####[facility] Syhbolqukq6468 [place] [address]Dr. Chrissy Frazier PLT 416 103/ul Normal 150-450 [facility] Comment on above: Performed By: #### C BC ####[facility] Ftlbwevodw3470 [place] [address]Dr. Chrissy Frazier RBC 5.83 106/ul Normal 4.70-6.10 [facility] Comment on above: Performed By: #### C BC ####[facility] Znbzpalymm7877 [place] [address]Dr. Chrissy Frazier WBC 15.0 103/ul Critically high 4.0-11.0 [facility] Comment on above: Performed By: #### C BC ####[facility] Jzvishuuav9900 [place] [address]Dr. Chrissy Frazier Covid-19 PCR ([facility])on 06-21 SARS-CoV-2 (COVID-19) RNA RHIANNON+probe Ql (Unsp spec) Not detected Normal NOT DETECTED The [facility] Comment on above: Result Comment: When [...] for this test is supported by the [employer] Specialist of Health and Human Service's declaration that [...] be used). Performed By: #### C VDTBH ####[facility] Maocutyund[address] [place] [address]Dr. Chrissy Frazier LIPASEon 07-06-2022 Lipase [Catalytic activity/Vol] 130.0 U/L Normal 73.0-393.0 [facility] Comment on above: Performed By: #### C OSWALD ADAIR, TERRENCE ####[facility] Iranvbekts35[address] [place] [address]Dr. Chrissy Frazier PROF 14(COMP METB)on 022 Albumin [Mass/Vol] 4.4 g/dL Normal 3.4-5.0 [facility] Comment on above: Performed By: #### C MANA LIPA, TERRENCE ####[facility] Zxdrviopwq37[address] [place], [place] [address]Dr. Chrissy Frazier Albumin/Globulin [Mass ratio] 1.1 {ratio} Normal [facility] Comment on above: Performed By: #### C OSWALD ADAIR TERRENCE ####[facility] Ycmejysvbb7[address] [place], [place] [address]Dr. Chrissy Frazier ALP [Catalytic activity/Vol] 83 U/L Normal 46-116 [facility] Comment on above: Performed By: #### C MANA LIPA, TERRENCE ####[facility] Nyulhmkeef9142 [place] [address]Dr. Chrissy Frazier ALT [Catalytic activity/Vol] 107 U/L Critically high 16-63 [facility] Comment on above: Performed By: #### C TESSA ADAIRA, TERRENCE ####[facility] Xiexvtldhw8788 [place] [address]Dr. Chrissy Frazier Anion gap [Moles/Vol] 20.5 mmol/L Normal [facility] Comment on above: Performed By: #### C MANA LIPA, TERRENCE ####[facility] Vstaxegyau9838[address] [place], [place] [address]Dr. Chrissy Frazier AST [Catalytic activity/Vol] 46 U/L Critically high 15-37 [facility] Comment on above: Performed By: #### C OSWALD ADAIR, TERRENCE ####[facility] Znmwkhfvaz7442 [place] [address]Dr. Chrissy Frazier Bilirubin [Mass/Vol] 1.2 mg/dL Critically high 0.2-1.0 [facility] Comment on above: Performed By: #### C TESSA ADAIRA, TERRENCE ####[facility] Jaqhuqwuga[address] [place], [place] [address]Dr. Chrissy Frazier Calcium [Mass/Vol] 9.1 mg/dL Normal 8.5-10.1 [facility] Comment on above: Performed By: #### C MANA LIPA, TERRENCE ####[facility] Dkmtoketqk5947[address] [place], [place] [address]Dr. Chrissy Frazier Chloride [Moles/Vol] 100 mmol/L Normal 98-107 [facility] Comment on above: Performed By: #### C TESSA ADAIRA, TERRENCE ####[facility] Hbhkanwxui219198 [address] [place], [place] [address]Dr. Chrissy Frazier CO2 [Moles/Vol] 18.6 mmol/L Critically low 21.0-32.0 The [facility] Comment on above: Performed By: #### C MANA LIPA, TERRENCE ####[facility] Pbobfxeiuy533[address] [place], [place] [address]Dr. Chrissy Frazier Creatinine [Mass/Vol] 1.44 mg/dL Critically high 0.70-1.30 [facility] Comment on above: Performed By: #### C MANA LIPA, TERRENCE ####[facility] Dvhzpppaqz8723[address] [place], [place] [address]Dr. Chrissy Frazier EGFR-AF [place] >60 Normal >=60 [facility] Comment on above: Performed By: #### C MP, LIPA, TERRENCE ####[facility] Lzyndsnvgv8623[address] [place], [place] [address]Dr. Chrissy Frazier EGFR-NON AF [place] 57 mL/min/1.73m2 Critically low >=60 The [facility] Comment on above: Performed By: #### C MANA LIPA, TERRENCE ####[facility] Jewqlrlneu9253 [place] [address]Dr. Chrissy Frazier Globulin (S) [Mass/Vol] 4.0 g/dL Normal [facility] Comment on above: Performed By: #### C MANA LIPA, TERRENCE ####[facility] Kqlcyqshkv3089 [place] [address]Dr. Chrissy Frazier Glucose [Mass/Vol] 117 mg/dL Critically high 74-106 [facility] Comment on above: Performed By: #### C MANA LIPA, TERRENCE ####[facility] Smovqabteg4727[address] [place], [place] [address]Dr. Chrissy Frazier Potassium [Moles/Vol] 3.1 mmol/L Critically low 3.5-5.1 [facility] Comment on above: Performed By: #### C MANA LIPA, TERRENCE ####[facility] Yxdzdkldvg9538[address] [place], [place] [address]Dr. Chrissy Frazier Protein [Mass/Vol] 8.4 g/dL Critically high 6.4-8.2 [facility] Comment on above: Performed By: #### C TESSA ADAIRA, TERRENCE ####[facility] Ehegmigxgd0630[address] [place], [place] [address]Dr. Chrissy Frazier Sodium [Moles/Vol] 136 mmol/L Normal 136-145 [facility] Comment on above: Performed By: #### C MANA LIPA, TERRENCE ####[facility] Dhhyiwldgd433[address] [place], [place] [address]Dr. Chrissy Frazier Urea nitrogen [Mass/Vol] 15.0 mg/dL Normal 7.0-18.0 [facility] Comment on above: Performed By: #### C MANA LIPA, TERRENCE ####[facility] Dqrsgdevoy359[address] [place], [place] [address]Dr. Chrissy Frazier Urea nitrogen/Creatinine [Mass ratio] 10.4 mg/mg Normal [facility] Comment on above: Performed By: #### C MANA LIPA, TERRENCE ####[facility] Woomwkgjtq8254 [place] [address]Dr. Chrissy Freddie CBC AUTO DIFFon 07-05-2022 BASO # 0.0 103/ul Normal 0.0-0.1 [facility] Comment on above: Performed By: #### C BC ####[facility] Ohczqkqrmh[address] [place], [place] [address]Dr. Chrissy Frazier Basophils/100 WBC (Bld) 0.3 % Normal 0.2-2.0 The [facility] Comment on above: Performed By: #### C BC ####[facility] Sabueefnpv648[address] [place], [place] [address]Dr. Chrissy Frazier EO # 0.2 103/ul Normal 0.0-0.7 [facility] Comment on above: Performed By: #### C BC ####[facility] Swapsjqgen17[address] [place], [place] [address]Dr. Chrissy Frazier Eosinophils/100 WBC (Bld) 1.5 % Normal 0.9-7.0 [facility] Comment on above: Performed By: #### C BC ####[facility] Dzhzrmzprb694[address] [place], [place] [address]Dr. Tishrowan Frazier Erythrocyte distribution width (RBC) [Ratio] 13.9 % Normal 11.0-15.0 [facility] Comment on above: Performed By: #### C BC ####[facility] Ptkltomupf47[address] [place], [place] [address]Dr. Chrissy Frazier Hematocrit (Bld) [Volume fraction] 44.5 % Normal 42.0-54.0 [facility] Comment on above: Performed By: #### C BC ####[facility] Ktxuloyjhw9[address] [place], [place] [address]Dr. Chrissy Frazier Hemoglobin (Bld) [Mass/Vol] 14.8 g/dL Normal 14.0-18.0 [facility] Comment on above: Performed By: #### C BC ####[facility] Atuytlchfx[address] [place], [place] [address]Dr. Chrissy Frazier IG # 0.05 10e3/ul Critically high 0.00-0.03 [facility] Comment on above: Performed By: #### C BC ####[facility] Cbinsisyec7592 [place] [address]Dr. Chrissy Frazier IG % 0.4 % Normal 0.0-0.5 [facility] Comment on above: Performed By: #### C BC ####[facility] Qjldqfvasq7572 [place] [address]Dr. Chrissy Frazier LYMPH # 3.3 103/ul Normal 1.2-3.8 [facility] Comment on above: Performed By: #### C BC ####[facility] Tlmggdztzd8105 [place] [address]Dr. Chrissy Frazier Lymphocytes/100 WBC (Bld) 29.1 % Normal 20.5-60.0 [facility] Comment on above: Performed By: #### C BC ####[facility] Tsrcfqmlyc0092 [place] [address]Dr. Chrissy Frazier MANUAL DIFF REQ NO Normal [facility] Comment on above: Performed By: #### C BC ####[facility] Ffygnabjwx3295 [place] [address]Dr. Chrissy Frazier MCH (RBC) [Entitic mass] 28.2 pg Normal 25.9-34.0 [facility] Comment on above: Performed By: #### C BC ####[facility] Vchgryjpcr6524 [place] [address]Dr. Chrissy Frazier MCHC (RBC) [Mass/Vol] 33.3 g/dL Normal 29.9-35.2 [facility] Comment on above: Performed By: #### C BC ####[facility] Hnqzwsfbdk8823 [place] [address]Dr. Chrissy Frazier MCV (RBC) [Entitic vol] 84.9 fL Normal 80.0-94.0 [facility] Comment on above: Performed By: #### C BC ####[facility] Yfwvjfttkp9031 [place] [address]Dr. Chrissy Freddie MONO # 0.6 103/ul Normal 0.3-0.8 [facility] Comment on above: Performed By: #### C BC ####[facility] Btgfyrpwbb3678 [place] [address]Dr. Chrissy Frazier Monocytes/100 WBC (Bld) 5.4 % Normal 1.7-12.0 [facility] Comment on above: Performed By: #### C BC ####[facility] Mhwsectkvg7671 [place] [address]Dr. Chrissy Frazier NEUT # 7.1 103/ul Critically high 1.4-6.5 [facility] Comment on above: Performed By: #### C BC ####[facility] Qcvixdhlfz3864 [place] [address]Dr. Chrissy Frazier Neutrophils/100 WBC (Bld) 63.3 % Normal 43.0-75.0 [facility] Comment on above: Performed By: #### C BC ####[facility] Dlipgslnmc6808 [place] [address]Dr. Chrissy Frazier Platelet mean volume (Bld) [Entitic vol] 9.9 fL Normal 9.5-13.5 [facility] Comment on above: Performed By: #### C BC ####[facility] Ohsybrhpnh1876 [place] [address]Dr. Chrissy Freddie PLT 339 103/ul Normal 150-450 [facility] Comment on above: Performed By: #### C BC ####[facility] Lpkucpdxdv6065 [place] [address]Dr. Tishrowan Frazier RBC 5.24 106/ul Normal 4.70-6.10 [facility] Comment on above: Performed By: #### C BC ####[facility] Wecjndfhrn3757 [place] [address]Dr. Chrissy Frazier WBC 11.2 103/ul Critically high 4.0-11.0 [facility] Comment on above: Performed By: #### C BC ####[facility] Qeumfhaqsd5723 [place] [address]Dr. Chrissy Frazier PROF 14(COMP METB)on 022 Albumin [Mass/Vol] 3.8 g/dL Normal 3.4-5.0 [facility] Comment on above: Performed By: #### C MP ####[facility] Hdamcspyzt3940 [place] [address]Dr. Chrissy Freddie Albumin/Globulin [Mass ratio] 1.1 {ratio} Normal [facility] Comment on above: Performed By: #### C MP ####[facility] Pfauvmwqbo0038 [place] [address]Dr. Chrissy Freddie ALP [Catalytic activity/Vol] 67 U/L Normal 46-116 [facility] Comment on above: Performed By: #### C MP ####[facility] Dqbtvhftfs7677 [place] [address]Dr. Chrissy Freddie ALT [Catalytic activity/Vol] 75 U/L Critically high 16-63 [facility] Comment on above: Performed By: #### C MP ####[facility] Wzbeoawzla4999 [place] [address]Dr. Chrissy Frazier Anion gap [Moles/Vol] 14.3 mmol/L Normal [facility] Comment on above: Performed By: #### C MP ####[facility] Nzyyoaojcy0199 [place] [address]Dr. Chrissy Freddie AST [Catalytic activity/Vol] 40 U/L Critically high 15-37 [facility] Comment on above: Performed By: #### C MP ####[facility] Fjpllhjdhg1352 [place] [address]Dr. Chrissy Frazier Bilirubin [Mass/Vol] 0.9 mg/dL Normal 0.2-1.0 [facility] Comment on above: Performed By: #### C MP ####[facility] Wwiothbkzf4161 [place] [address]Dr. Chrissy Frazier Calcium [Mass/Vol] 8.4 mg/dL Critically low 8.5-10.1 [facility] Comment on above: Performed By: #### C MP ####[facility] Jzwevkdzxa2844 [place] [address]Dr. Chrissy Frazier Chloride [Moles/Vol] 104 mmol/L Normal 98-107 [facility] Comment on above: Performed By: #### C MP ####[facility] Niptgspzba0009 [place] [address]Dr. Chrissy Frazier CO2 [Moles/Vol] 24.1 mmol/L Normal 21.0-32.0 [facility] Comment on above: Performed By: #### C MP ####[facility] Kgrexcmxfg4703 [place] [address]Dr. Chrissy Frazier Creatinine [Mass/Vol] 1.11 mg/dL Normal 0.70-1.30 [facility] Comment on above: Performed By: #### C MP ####[facility] Fnzkbfzftd1618 [place] [address]Dr. Chrissy Frazier EGFR-AF [place] >60 Normal >=60 [facility] Comment on above: Performed By: #### C MP ####[facility] Hwkaspfjnc6826 [place] [address]Dr. Chrissy Frazier EGFR-NON AF [place] >60 Normal >=60 [facility] Comment on above: Performed By: #### C MP ####[facility] Vteezqitue0664[address] [place], [place] [address]Dr. Chrissy Frazier Globulin (S) [Mass/Vol] 3.6 g/dL Normal [facility] Comment on above: Performed By: #### C MP ####[facility] Jnumajltxt099[address] [place], [place] [address]Dr. Chrissy Frazier Glucose [Mass/Vol] 89 mg/dL Normal 74-106 [facility] Comment on above: Performed By: #### C MP ####[facility] Qbtlwnqxnk2299 [place] [address]Dr. Chrissy Frazier Potassium [Moles/Vol] 3.4 mmol/L Critically low 3.5-5.1 [facility] Comment on above: Performed By: #### C MP ####[facility] Chdgsrgjfb28[address] [place], [place] [address]Dr. Chrissy Freddie Protein [Mass/Vol] 7.4 g/dL Normal 6.4-8.2 [facility] Comment on above: Performed By: #### C MP ####[facility] Canrhrzkak6064[address] [place], [place] [address]Dr. Chrissy Frazier Sodium [Moles/Vol] 139 mmol/L Normal 136-145 [facility] Comment on above: Performed By: #### C MP ####[facility] Xyeiowpqqe288[address] [place], [place] [address]Dr. Chrissy Frazier Urea nitrogen [Mass/Vol] 10.0 mg/dL Normal 7.0-18.0 [facility] Comment on above: Performed By: #### C MP ####[facility] Ybfxnmetkz944[address] [place], [place] [address]Dr. Chrissy Frazier Urea nitrogen/Creatinine [Mass ratio] 9.0 mg/mg Normal [facility] Comment on above: Performed By: #### C MP ####[facility] Qmucwpvhkt714[address] [place], [place] [address]Dr. Chrissy Frazier CBC AUTO DIFFon 07-04-2022 BASO # 0.0 103/ul Normal 0.0-0.1 [facility] Comment on above: Performed By: #### C BC ####[facility] Uvxmujcrnc24[address] [place], [place] [address]Dr. Chrissy Freddie Basophils/100 WBC (Bld) 0.2 % Normal 0.2-2.0 [facility] Comment on above: Performed By: #### C BC ####[facility] Hhthhwkjdz[address] [place], [place] [address]Dr. Chrissy Frazier EO # 0.0 103/ul Normal 0.0-0.7 [facility] Comment on above: Performed By: #### C BC ####[facility] Rkcgwegclf[address] [place], [place] [address]Dr. Chrissy Freddie Eosinophils/100 WBC (Bld) 0.3 % Critically low 0.9-7.0 [facility] Comment on above: Performed By: #### C BC ####[facility] Mrnkszscmb[address] [place], [place] [address]Dr. Chrissy Frazier Erythrocyte distribution width (RBC) [Ratio] 14.0 % Normal 11.0-15.0 [facility] Comment on above: Performed By: #### C BC ####[facility] Zdujhwlseo75[address] [place] [address]Dr. Chrissy Frazier Hematocrit (Bld) [Volume fraction] 43.2 % Normal 42.0-54.0 The [facility] Comment on above: Performed By: #### C BC ####[facility] Qgdvkmyqsq95[address] [place] [address]Dr. Chrissy Frazier Hemoglobin (Bld) [Mass/Vol] 14.6 g/dL Normal 14.0-18.0 The [facility] Comment on above: Performed By: #### C BC ####[facility] Dpnwpzoiau29[address] [place] [address]Dr. Tishrowan Freddie IG # 0.11 10e3/ul Critically high 0.00-0.03 [facility] Comment on above: Performed By: #### C BC ####[facility] Xuhldlsgnp94[address] [place] [address]Dr. Chrissy Frazier IG % 0.8 % Critically high 0.0-0.5 [facility] Comment on above: Performed By: #### C BC ####[facility] Ehudjnhaxy[address] [place] [address]Dr. Chrissy Frazier LYMPH # 2.6 103/ul Normal 1.2-3.8 [facility] Comment on above: Performed By: #### C BC ####[facility] Dbyhwfwstb4080 [place] [address]Dr. Tishrowan Frazier Lymphocytes/100 WBC (Bld) 18.3 % Critically low 20.5-60.0 The [facility] Comment on above: Performed By: #### C BC ####[facility] Kegrvnyhsh[address] [place] [address]Dr. Tishrowan Frazier MANUAL DIFF REQ NO Normal [facility] Comment on above: Performed By: #### C BC ####[facility] Irhzmekxhj[address] [place], [place] [address]Dr. Chrissy Frazier MCH (RBC) [Entitic mass] 28.1 pg Normal 25.9-34.0 The [facility] Comment on above: Performed By: #### C BC ####[facility] Uogagqnyxq3561 [place] [id number]. Chrissy Frazier MCHC (RBC) [Mass/Vol] 33.8 g/dL Normal 29.9-35.2 The [facility] Comment on above: Performed By: #### C BC ####[facility] Efirtekucd9135 [place] [address]Dr. Chrissy Frazier MCV (RBC) [Entitic vol] 83.2 fL Normal 80.0-94.0 The [facility] Comment on above: Performed By: #### C BC ####[facility] Cmlaihmxgu2627 [place] [address]Dr. Chrissy Frazier MONO # 0.7 103/ul Normal 0.3-0.8 The [facility] Comment on above: Performed By: #### C BC ####[facility] Fbgaihxkdn9936 [place] [address]Dr. Tishrowan Frazier Monocytes/100 WBC (Bld) 5.3 % Normal 1.7-12.0 The [facility] Comment on above: Performed By: #### C BC ####[facility] Mpdhpqbtgt6250 [place] [address]Dr. Chrissy Frazier NEUT # 10.5 103/ul Critically high 1.4-6.5 [facility] Comment on above: Performed By: #### C BC ####[facility] Jldhklyrhn4585 [place] [address]Dr. Chrissy Frazier Neutrophils/100 WBC (Bld) 75.1 % Critically high 43.0-75.0 The [facility] Comment on above: Performed By: #### C BC ####[facility] Gafngpbzjd6057 [place] [address]Dr. Chrissy Frazier Platelet mean volume (Bld) [Entitic vol] 10.6 fL Normal 9.5-13.5 The [facility] Comment on above: Performed By: #### C BC ####[facility] Bmcyktzpzo2097 [place] [address]Dr. Chrissy Freddie PLT 309 103/ul Normal 150-450 [facility] Comment on above: Performed By: #### C BC ####[facility] Meovpthsik0743 [place] [address]Dr. Chrissy Frazier RBC 5.19 106/ul Normal 4.70-6.10 The [facility] Comment on above: Performed By: #### C BC ####[facility] Ttxkvxygco8091 [place] [address]Dr. Chrissy Frazier WBC 14.0 103/ul Critically high 4.0-11.0 [facility] Comment on above: Performed By: #### C BC ####[facility] Ufrubhjyzf3215 [place] [address]Dr. Chrissy Frazier PROF 14(COMP METB)on 022 Albumin [Mass/Vol] 4.0 g/dL Normal 3.4-5.0 [facility] Comment on above: Performed By: #### C MP ####[facility] Xtnbqpmdxu[address] [place], [place] [address]Dr. Chrissy Frazier Albumin/Globulin [Mass ratio] 1.1 {ratio} Normal [facility] Comment on above: Performed By: #### C MP ####[facility] Xolytqsgdk41[address] [place], [place] [address]Dr. Chrissy Frazier ALP [Catalytic activity/Vol] 67 U/L Normal 46-116 The [facility] Comment on above: Performed By: #### C MP ####[facility] Adcrwxfzac524[address] [place], [place] [address]Dr. Chrissy Frazier ALT [Catalytic activity/Vol] 40 U/L Normal 16-63 The [facility] Comment on above: Performed By: #### C MP ####[facility] Eeycxqvejj66[address] [place], [place] [address]Dr. Chrissy Frazier Anion gap [Moles/Vol] 17.7 mmol/L Normal [facility] Comment on above: Performed By: #### C MP ####[facility] Jqldatiyws304[address] [place], [place] [address]Dr. Chrissy Frazier AST [Catalytic activity/Vol] 27 U/L Normal 15-37 [facility] Comment on above: Performed By: #### C MP ####[facility] Hxncanqsnl55[address] [place], [place] [address]Dr. Chrissy Frazier Bilirubin [Mass/Vol] 0.8 mg/dL Normal 0.2-1.0 The [facility] Comment on above: Performed By: #### C MP ####[facility] Dcsrlrmdpi1694 [place] [address]Dr. Chrissy Frazier Calcium [Mass/Vol] 8.8 mg/dL Normal 8.5-10.1 [facility] Comment on above: Performed By: #### C MP ####[facility] Aonjoorwyf1387 [place] [address]Dr. Chrissy Frazier Chloride [Moles/Vol] 105 mmol/L Normal 98-107 [facility] Comment on above: Performed By: #### C MP ####[facility] Wdlidexvza0096 [place] [address]Dr. Chrissy Frazier CO2 [Moles/Vol] 16.5 mmol/L Critically low 21.0-32.0 The [facility] Comment on above: Performed By: #### C MP ####[facility] Faojglwvkd46[address] [place], [place] [address]Dr. Chrissy Frazier Creatinine [Mass/Vol] 1.02 mg/dL Normal 0.70-1.30 The [facility] Comment on above: Performed By: #### C MP ####[facility] Etectbtzve[address] [place], [place] [address]Dr. Chrissy Frazier EGFR-AF [place] >60 Normal >=60 [facility] Comment on above: Performed By: #### C MP ####[facility] Qaiaomyncm3496 [place] [address]Dr. Chrissy Freddie EGFR-NON AF [place] >60 Normal >=60 The [facility] Comment on above: Performed By: #### C MP ####[facility] Cjswbkywzd74[address] [place], [place] [address]Dr. Tishrowan Freddie Globulin (S) [Mass/Vol] 3.7 g/dL Normal [facility] Comment on above: Performed By: #### C MP ####[facility] Uzklhhkoql7253 [place] [address]Dr. Tishrowan Frazier Glucose [Mass/Vol] 106 mg/dL Normal 74-106 [facility] Comment on above: Performed By: #### C MP ####[facility] Gmlivazfcn9575 [place] [address]Dr. Chrissy Freddie Potassium [Moles/Vol] 3.2 mmol/L Critically low 3.5-5.1 [facility] Comment on above: Performed By: #### C MP ####[facility] Vrqtksksme6364[address] [place], [place] [address]Dr. Chrissy Freddie Protein [Mass/Vol] 7.7 g/dL Normal 6.4-8.2 [facility] Comment on above: Performed By: #### C MP ####[facility] Nbxbvbrrtt[address] [place], [place] [address]Dr. Chrissy Frazier Sodium [Moles/Vol] 136 mmol/L Normal 136-145 [facility] Comment on above: Performed By: #### C MP ####[facility] Ccvynmakus[address] [place], [place] [address]Dr. Chrissy Freddie Urea nitrogen [Mass/Vol] 10.0 mg/dL Normal 7.0-18.0 [facility] Comment on above: Performed By: #### C MP ####[facility] Pgzjidktvm[address] [place], [place] [address]Dr. Tishrowan Freddie Urea nitrogen/Creatinine [Mass ratio] 9.8 mg/mg Normal [facility] Comment on above: Performed By: #### C MP ####[facility] Opeppducnn37[address] [place], [place] [address]Dr. Chrissy Freddie CBC AUTO DIFFon 07-03-2022 BASO # 0.1 103/ul Normal 0.0-0.1 [facility] Comment on above: Performed By: #### C BC ####[facility] Bweekyqvmb9[address] [place], [place] [address]Dr. Chrissy Frazier Basophils/100 WBC (Bld) 0.5 % Normal 0.2-2.0 [facility] Comment on above: Performed By: #### C BC ####[facility] Dqkykrckun38[address] [place], [place] [address]Dr. Chrissy Frazier EO # 0.1 103/ul Normal 0.0-0.7 [facility] Comment on above: Performed By: #### C BC ####[facility] Scftiysbsg4734 [place] [address]Dr. Chrissy Frazier Eosinophils/100 WBC (Bld) 1.3 % Normal 0.9-7.0 [facility] Comment on above: Performed By: #### C BC ####[facility] Nfkjeocgeu9706 [place] [address]Dr. Chrissy Frazier Erythrocyte distribution width (RBC) [Ratio] 14.2 % Normal 11.0-15.0 [facility] Comment on above: Performed By: #### C BC ####[facility] Afgzratzfc[address] [place], [place] [address]Dr. Chrissy Frazier Hematocrit (Bld) [Volume fraction] 41.7 % Critically low 42.0-54.0 [facility] Comment on above: Performed By: #### C BC ####[facility] Ovkxpvuezi280[address] [place], [place] [address]Dr. Chrissy Frazier Hemoglobin (Bld) [Mass/Vol] 13.6 g/dL Critically low 14.0-18.0 The [facility] Comment on above: Performed By: #### C BC ####[facility] Moiqjdlmzu98[address] [place], [place] [address]Dr. Chrissy Frazier IG # 0.04 10e3/ul Critically high 0.00-0.03 [facility] Comment on above: Performed By: #### C BC ####[facility] Oopwbzuyac6040 [place] [address]Dr. Chrissy Frazier IG % 0.4 % Normal 0.0-0.5 [facility] Comment on above: Performed By: #### C BC ####[facility] Lceqyptwcd14[address] [place], [place] [address]Dr. Chrissy Frazier LYMPH # 3.5 103/ul Normal 1.2-3.8 [facility] Comment on above: Performed By: #### C BC ####[facility] Emoiasovhu074[address] [place], [place] [address]Dr. Chrissy Frazier Lymphocytes/100 WBC (Bld) 33.5 % Normal 20.5-60.0 [facility] Comment on above: Performed By: #### C BC ####[facility] Bavnuzmwel7[address] [place] [address]Dr. Chrissy Frazier MANUAL DIFF REQ NO Normal [facility] Comment on above: Performed By: #### C BC ####[facility] Yjykasxazd3757 [place] [address]Dr. Chrissy Frazier MCH (RBC) [Entitic mass] 27.9 pg Normal 25.9-34.0 [facility] Comment on above: Performed By: #### C BC ####[facility] Rflrwhtzlg0925 [place] [address]Dr. Chrissy Frazier MCHC (RBC) [Mass/Vol] 32.6 g/dL Normal 29.9-35.2 [facility] Comment on above: Performed By: #### C BC ####[facility] Mwfzqmntld9044 [place] [address]Dr. Chrissy Frazier MCV (RBC) [Entitic vol] 85.6 fL Normal 80.0-94.0 [facility] Comment on above: Performed By: #### C BC ####[facility] Wogipijphy2998 [place] [address]Dr. Chrissy Frazier MONO # 0.7 103/ul Normal 0.3-0.8 [facility] Comment on above: Performed By: #### C BC ####[facility] Egvqhtjika9565 [place] [address]Dr. Chrissy Frazier Monocytes/100 WBC (Bld) 6.5 % Normal 1.7-12.0 [facility] Comment on above: Performed By: #### C BC ####[facility] Dnngzxsqdj7294 [place] [address]DrNancy Frazier NEUT # 6.1 103/ul Normal 1.4-6.5 [facility] Comment on above: Performed By: #### C BC ####[facility] Fffvzfolfg88[address] [place], [place] [address]Dr. Chrissy Frazier Neutrophils/100 WBC (Bld) 57.8 % Normal 43.0-75.0 [facility] Comment on above: Performed By: #### C BC ####[facility] Zlbvxijewg2564 [place] [address]Dr. Tishrowan Freddie Platelet mean volume (Bld) [Entitic vol] 10.4 fL Normal 9.5-13.5 [facility] Comment on above: Performed By: #### C BC ####[facility] Njpxqinuyv9960 [place] [address]DrNancy Frazier PLT 288 103/ul Normal 150-450 [facility] Comment on above: Performed By: #### C BC ####[facility] Nmkxghuaqh0449 [place] [address]DrNancy Frazier RBC 4.87 106/ul Normal 4.70-6.10 [facility] Comment on above: Performed By: #### C BC ####[facility] Dutjupyhcp[address] [place], [place] [address]DrNancy Frazier WBC 10.5 103/ul Normal 4.0-11.0 [facility] Comment on above: Performed By: #### C BC ####[facility] Jkjqjggssc39[address] [place], [place] [address]DrNancy Frazier PROF 14(COMP METB)on 022 Albumin [Mass/Vol] 3.6 g/dL Normal 3.4-5.0 [facility] Comment on above: Performed By: #### C MP ####[facility] Uzsebujsqc1784 [place] [address]DrNancy Frazier Albumin/Globulin [Mass ratio] 1.1 {ratio} Normal [facility] Comment on above: Performed By: #### C MP ####[facility] Warvxpqgwv2138 [place] [address]DrNancy Frazier ALP [Catalytic activity/Vol] 58 U/L Normal 46-116 [facility] Comment on above: Performed By: #### C MP ####[facility] Lgbxfqaivo1350[address] [place], [place] [address]Dr. Yirowan Frazier ALT [Catalytic activity/Vol] 30 U/L Normal 16-63 [facility] Comment on above: Performed By: #### C MP ####[facility] Krxhypgwdg8544 [place] [address]Dr. Tishrowan Freddie Anion gap [Moles/Vol] 14.5 mmol/L Normal [facility] Comment on above: Performed By: #### C MP ####[facility] Ydfrxturzz677[address] [place], [place] [address]Dr. Chrissy Freddie AST [Catalytic activity/Vol] 17 U/L Normal 15-37 [facility] Comment on above: Performed By: #### C MP ####[facility] Hxggzfcqrx484[address] [place], [place] [address]Dr. Chrissy Frazier Bilirubin [Mass/Vol] 0.6 mg/dL Normal 0.2-1.0 [facility] Comment on above: Performed By: #### C MP ####[facility] Lhxactxmbl83[address] [place], [place] [address]Dr. Chrissy Frazier Calcium [Mass/Vol] 8.4 mg/dL Critically low 8.5-10.1 [facility] Comment on above: Performed By: #### C MP ####[facility] Szmoarfuqb77[address] [place], [place] [address]Dr. Chrissy Frazier Chloride [Moles/Vol] 106 mmol/L Normal 98-107 [facility] Comment on above: Performed By: #### C MP ####[facility] Qlbvynypuy365[address] [place], [place] [address]Dr. Chrissy Frazier CO2 [Moles/Vol] 22.6 mmol/L Normal 21.0-32.0 [facility] Comment on above: Performed By: #### C MP ####[facility] Ctgyuoosqf65[address] [place], [place] [address]Dr. Chrissy Frazier Creatinine [Mass/Vol] 1.08 mg/dL Normal 0.70-1.30 [facility] Comment on above: Performed By: #### C MP ####[facility] Sriojrigvf806[address] [place], [place] [address]Dr. Chrissy Frazier EGFR-AF [place] >60 Normal >=60 [facility] Comment on above: Performed By: #### C MP ####[facility] Ofvobsgaqm9822 [place], [place] [address]Lh. Chrissy Frazier EGFR-NON AF [place] >60 Normal >=60 [facility] Comment on above: Performed By: #### C MP ####[facility] Djmfyxyrzg7713 [place], [place] [address]Pr. Chrissy Frazier Globulin (S) [Mass/Vol] 3.3 g/dL Normal [facility] Comment on above: Performed By: #### C MP ####[facility] Peiogiwmze9495 [place] [address]Dr. Chrissy Frazier Glucose [Mass/Vol] 94 mg/dL Normal 74-106 [facility] Comment on above: Performed By: #### C MP ####[facility] Tfzaveudgl7813 [place] [address]Dr. Chrissy Frazier Potassium [Moles/Vol] 3.1 mmol/L Critically low 3.5-5.1 [facility] Comment on above: Performed By: #### C MP ####[facility] Gxmqmsrkwl4422 [place] [address]Dr. Chrissy Frazier Protein [Mass/Vol] 6.9 g/dL Normal 6.4-8.2 [facility] Comment on above: Performed By: #### C MP ####[facility] Hpznxuuzje9547 [place] [address]Dr. Chrissy Frazier Sodium [Moles/Vol] 140 mmol/L Normal 136-145 [facility] Comment on above: Performed By: #### C MP ####[facility] Pdjacawqbs8319 [place] [address]Dr. Chrissy Frazier Urea nitrogen [Mass/Vol] 10.0 mg/dL Normal 7.0-18.0 [facility] Comment on above: Performed By: #### C MP ####[facility] Ugmpzwtkxz1650 [place] [address]Dr. Chrissy Frazier Urea nitrogen/Creatinine [Mass ratio] 9.3 mg/mg Normal [facility] Comment on above: Performed By: #### C MP ####[facility] Rpwgouizpb47[address] [place], [place] [address]Dr. Chrissy Fraizer CBC AUTO DIFFon 07-02-2022 BASO # 0.0 103/ul Normal 0.0-0.1 [facility] Comment on above: Performed By: #### C BC ####[facility] Bkdinrdokq4475[address] [place], [place] [address]Dr. Chrissy Frazier Basophils/100 WBC (Bld) 0.2 % Normal 0.2-2.0 [facility] Comment on above: Performed By: #### C BC ####[facility] Uyeqgwdatj604[address] [place], [place] [address]Dr. Chrissy Frazier EO # 0.0 103/ul Normal 0.0-0.7 [facility] Comment on above: Performed By: #### C BC ####[facility] Mzuvvyderl24[address] [place], [place] [address]Dr. Chrissy Frazier Eosinophils/100 WBC (Bld) 0.0 % Critically low 0.9-7.0 [facility] Comment on above: Performed By: #### C BC ####[facility] Pugxebxvod362[address] [place], [place] [address]Dr. Chrissy Frazier Erythrocyte distribution width (RBC) [Ratio] 14.2 % Normal 11.0-15.0 [facility] Comment on above: Performed By: #### C BC ####[facility] Rlcgbxfdoo301[address] [place], [place] [address]Dr. Chrissy Frazier Hematocrit (Bld) [Volume fraction] 46.2 % Normal 42.0-54.0 [facility] Comment on above: Performed By: #### C BC ####[facility] Iixjplnofe279[address] [place], [place] [address]Dr. Chrissy Frazier Hemoglobin (Bld) [Mass/Vol] 15.2 g/dL Normal 14.0-18.0 [facility] Comment on above: Performed By: #### C BC ####[facility] Caevbbnxyt9933[address] [place], [place] [address]Dr. Chrissy Frazier IG # 0.07 10e3/ul Critically high 0.00-0.03 [facility] Comment on above: Performed By: #### C BC ####[facility] Wiwecchgbs0297 [place] [id number] Chrissy Freddie IG % 0.4 % Normal 0.0-0.5 [facility] Comment on above: Performed By: #### C BC ####[facility] Romlmxqpzj0664 [place] [address]DrNancy Chrissy Freddie LYMPH # 2.8 103/ul Normal 1.2-3.8 [facility] Comment on above: Performed By: #### C BC ####[facility] Jhrplxxbdw9780[address] [place], [place] [address]DrNancy Chrissy Freddie Lymphocytes/100 WBC (Bld) 16.7 % Critically low 20.5-60.0 [facility] Comment on above: Performed By: #### C BC ####[facility] Vjmlivcupr[address] [place], [place] [address]DrNancy Chrissy Freddie MANUAL DIFF REQ NO Normal [facility] Comment on above: Performed By: #### C BC ####[facility] Seergsgmqy1612[address] [place], [place] [address]DrNancy Chrissy Freddie MCH (RBC) [Entitic mass] 28.3 pg Normal 25.9-34.0 [facility] Comment on above: Performed By: #### C BC ####[facility] Xshhjpivgo9330 [place] [address]DrNancy Chrissy Freddie MCHC (RBC) [Mass/Vol] 32.9 g/dL Normal 29.9-35.2 [facility] Comment on above: Performed By: #### C BC ####[facility] Sdpdtieepq84[address] [place], [place] [address]DrNancy Winstonrowan Freddie MCV (RBC) [Entitic vol] 86.0 fL Normal 80.0-94.0 [facility] Comment on above: Performed By: #### C BC ####[facility] Lxwkvurucd[address] [place], [place] [address]DrNancy Frazier MONO # 0.9 103/ul Critically high 0.3-0.8 [facility] Comment on above: Performed By: #### C BC ####[facility] Arhshxyqej99[address] [place] [id number]. Chrissy Frazier Monocytes/100 WBC (Bld) 5.1 % Normal 1.7-12.0 [facility] Comment on above: Performed By: #### C BC ####[facility] Cmvrpcfbjd4330 [place] [id number]. Chrissy Frazier NEUT # 13.2 103/ul Critically high 1.4-6.5 [facility] Comment on above: Performed By: #### C BC ####[facility] Tjenlguanm48[address] [place] [address]Dr. Chrissy Frazier Neutrophils/100 WBC (Bld) 77.6 % Critically high 43.0-75.0 [facility] Comment on above: Performed By: #### C BC ####[facility] Fnvzzobfrg362[address] [place], [place] [address]Dr. Chrissy Frazier Platelet mean volume (Bld) [Entitic vol] 11.6 fL Normal 9.5-13.5 [facility] Comment on above: Performed By: #### C BC ####[facility] Afbdqvoerl8945 [place] [address]Dr. Chrissy Frazier PLT 317 103/ul Normal 150-450 [facility] Comment on above: Performed By: #### C BC ####[facility] Zncisxykqe[address] [place], [place] [id number]. Chrissy Frazier RBC 5.37 106/ul Normal 4.70-6.10 [facility] Comment on above: Performed By: #### C BC ####[facility] Ebmlihjupl5279 [place] [address]Dr. Chrisys Frazier WBC 17.1 103/ul Critically high 4.0-11.0 [facility] Comment on above: Performed By: #### C BC ####[facility] Grbanobrva0857 [place] [address]Dr. Chrissy Frazier CT ABD/PELV W MARGOTHon 07-02-[address] ABD/PELV W CON Normal [facility] H PYLORI ANTIBODY IGGon 06-21 H. PYLORI IGG ABS 0.13 Index Value Normal 0.00-0.79 [facility] Comment on above: Result Comment: Nega tive <0.80 Equivocal 0.80 - 0.89 Positive >0.89 Performed By: #### H PYLLC ####[facility] Gdfnkbpefo3038 [place] [address]Dr. Chrissy Frazier PROF 14(COMP METB)on 022 Albumin [Mass/Vol] 3.8 g/dL Normal 3.4-5.0 [facility] Comment on above: Performed By: #### C MP ####[facility] Iwlvqovkmv23[address] [place], [place] [address]Dr. Chrissy Frazier Albumin/Globulin [Mass ratio] 1.0 {ratio} Normal [facility] Comment on above: Performed By: #### C MP ####[facility] Sveatgdorj[address] [place], [place] [address]Dr. Chrissy Frazier ALP [Catalytic activity/Vol] 68 U/L Normal 46-116 [facility] Comment on above: Performed By: #### C MP ####[facility] Nvrlubybnv13[address] [place], [place] [address]Dr. Chrissy Frazier ALT [Catalytic activity/Vol] 34 U/L Normal 16-63 [facility] Comment on above: Performed By: #### C MP ####[facility] Ujymbznndm147398 [address] [place], [place] [address]Dr. Chrissy Frazier Anion gap [Moles/Vol] 17.9 mmol/L Normal [facility] Comment on above: Performed By: #### C MP ####[facility] Vtrlqruxvj67299[address] [place], [place] [address]Dr. Chrissy Frazier AST [Catalytic activity/Vol] 24 U/L Normal 15-37 [facility] Comment on above: Performed By: #### C MP ####[facility] Lmjqbocict6470[address] [place], [place] [address]Dr. Chrissy Frazier Bilirubin [Mass/Vol] 0.6 mg/dL Normal 0.2-1.0 [facility] Comment on above: Performed By: #### C MP ####[facility] Aswxoxbylt4733 [place] [address]Dr. Chrissy Frazier Calcium [Mass/Vol] 8.8 mg/dL Normal 8.5-10.1 [facility] Comment on above: Performed By: #### C MP ####[facility] Bbrqxlfmbv7327 [place] [address]Dr. Chrissy Frazier Chloride [Moles/Vol] 105 mmol/L Normal 98-107 [facility] Comment on above: Performed By: #### C MP ####[facility] Bxtvxebmuj9490[address] [place], [place] [address]Dr. Chrissy Frazier CO2 [Moles/Vol] 18.8 mmol/L Critically low 21.0-32.0 [facility] Comment on above: Performed By: #### C MP ####[facility] Ajbnywjutp99[address] [place], [place] [address]Dr. Chrissy Frazier Creatinine [Mass/Vol] 1.15 mg/dL Normal 0.70-1.30 [facility] Comment on above: Performed By: #### C MP ####[facility] Ofinvubilx0450[address] [place], [place] [address]Dr. Chrissy Frazier EGFR-AF [place] >60 Normal >=60 [facility] Comment on above: Performed By: #### C MP ####[facility] Rdzwyrneqb032[address] [place], [place] [address]Dr. Chrissy Freddie EGFR-NON AF [place] >60 Normal >=60 [facility] Comment on above: Performed By: #### C MP ####[facility] Jfjgalykel0845[address] [place], [place] [address]Dr. Chrissy Freddie Globulin (S) [Mass/Vol] 3.9 g/dL Normal [facility] Comment on above: Performed By: #### C MP ####[facility] Xbmbsmtlre725[address] [place], [place] [address]Dr. Chrissy Frazier Glucose [Mass/Vol] 124 mg/dL Critically high 74-106 [facility] Comment on above: Performed By: #### C MP ####[facility] Geycogshvk1457 [place] [address]Dr. Chrissy Frazier Potassium [Moles/Vol] 3.7 mmol/L Normal 3.5-5.1 [facility] Comment on above: Performed By: #### C MP ####[facility] Gapsisjrne6329 [place] [address]Dr. Chrissy Freddie Protein [Mass/Vol] 7.7 g/dL Normal 6.4-8.2 [facility] Comment on above: Performed By: #### C MP ####[facility] Jflefpxyyb8350[address] [place], [place] [address]Dr. Tishrowan Frazier Sodium [Moles/Vol] 138 mmol/L Normal 136-145 [facility] Comment on above: Performed By: #### C MP ####[facility] Umthkldkcb848698 [address] [place], [place] [address]Dr. Tishrowan Frazier Urea nitrogen [Mass/Vol] 9.0 mg/dL Normal 7.0-18.0 [facility] Comment on above: Performed By: #### C MP ####[facility] Bmanvvocrq174[address] [place], [place] [address]Dr. Chrissy Freddie Urea nitrogen/Creatinine [Mass ratio] 7.8 mg/mg Normal [facility] Comment on above: Performed By: #### C MP ####[facility] Okoludpbzf1626[address] [place], [place] [address]Dr. Chrissy Freddie AMMONIAon 07-01-2022 Ammonia (P) [Moles/Vol] 14 umol/L Normal 11-32 [facility] Comment on above: Performed By: #### A MM ####[facility] Vbpaqxvbpw0964[address] [place], [place] [address]Dr. Tishrowan Frazier AMYLASEon 07-01-2022 Amylase [Catalytic activity/Vol] 32 U/L Normal 25-115 [facility] Comment on above: Performed By: #### A MY, PHOS, CMP, LIPA ####[facility] Fsrwtsxbho0438 [place] [address]Dr. Tishrowan Frazier CBC AUTO DIFFon 07-01-2022 BASO # 0.1 103/ul Normal 0.0-0.1 [facility] Comment on above: Performed By: #### C BC ####[facility] Utyrevlqys4154 [place] [address]Dr. Chrissy Frazier Basophils/100 WBC (Bld) 0.4 % Normal 0.2-2.0 [facility] Comment on above: Performed By: #### C BC ####[facility] Sqwnotfaww1810[address] [place], [place] [address]Dr. Chrissy Frazier EO # 0.2 103/ul Normal 0.0-0.7 [facility] Comment on above: Performed By: #### C BC ####[facility] Psszbtanov2332[address] [place], [place] [address]Dr. Tishrowan Freddie Eosinophils/100 WBC (Bld) 0.9 % Normal 0.9-7.0 [facility] Comment on above: Performed By: #### C BC ####[facility] Gwtvmoisfv565[address] [place], [place] [address]Dr. Chrissy Frazier Erythrocyte distribution width (RBC) [Ratio] 13.8 % Normal 11.0-15.0 [facility] Comment on above: Performed By: #### C BC ####[facility] Meljucqnrj585[address] [place], [place] [address]Dr. Tishrowan Frazier Hematocrit (Bld) [Volume fraction] 46.3 % Normal 42.0-54.0 [facility] Comment on above: Performed By: #### C BC ####[facility] Mkmbzsxxdk276398 [address] [place], [place] [address]Dr. Tishrowan Frazier Hemoglobin (Bld) [Mass/Vol] 15.4 g/dL Normal 14.0-18.0 [facility] Comment on above: Performed By: #### C BC ####[facility] Ztkfoecfvz4913[address] [place], [place] [address]Dr. Chrissy Frazier IG # 0.05 10e3/ul Critically high 0.00-0.03 [facility] Comment on above: Performed By: #### C BC ####[facility] Nncaumtzmd9758 [place] [address]Dr. Chrissy Frazier IG % 0.3 % Normal 0.0-0.5 [facility] Comment on above: Performed By: #### C BC ####[facility] Qhxkfppptb6318[address] [place], [place] [address]Dr. Chrissy Frazier LYMPH # 2.0 103/ul Normal 1.2-3.8 [facility] Comment on above: Performed By: #### C BC ####[facility] Jwpdwwvfkp211[address] [place], [place] [address]Dr. Chrissy Frazier Lymphocytes/100 WBC (Bld) 12.9 % Critically low 20.5-60.0 [facility] Comment on above: Performed By: #### C BC ####[facility] Ekfzocxwcy0924[address] [place], [place] [address]DrNancy Frazier MANUAL DIFF REQ NO Normal [facility] Comment on above: Performed By: #### C BC ####[facility] Msdpfpnsdk315[address] [place], [place] [address]Dr. Tishrowan Frazier MCH (RBC) [Entitic mass] 28.6 pg Normal 25.9-34.0 [facility] Comment on above: Performed By: #### C BC ####[facility] Elvzrdgsdl1418[address] [place], [place] [address]Dr. Chrissy Freddie MCHC (RBC) [Mass/Vol] 33.3 g/dL Normal 29.9-35.2 [facility] Comment on above: Performed By: #### C BC ####[facility] Hnaadynara[address] [place], [place] [address]DrNancy Frazier MCV (RBC) [Entitic vol] 86.1 fL Normal 80.0-94.0 [facility] Comment on above: Performed By: #### C BC ####[facility] Gdiwooxfwm20[address] [place], [place] [address]DrNancy Frazier MONO # 0.5 103/ul Normal 0.3-0.8 [facility] Comment on above: Performed By: #### C BC ####[facility] Nclvajzmts008[address] [place], [place] [address]Dr. Chrissy Frazier Monocytes/100 WBC (Bld) 3.0 % Normal 1.7-12.0 [facility] Comment on above: Performed By: #### C BC ####[facility] Kyrmyenrzx5525 [place] [address]Dr. Chrissy Frazier NEUT # 13.0 103/ul Critically high 1.4-6.5 [facility] Comment on above: Performed By: #### C BC ####[facility] Qazfezdxef8014 [place] [address]Dr. Chrissy Frazier Neutrophils/100 WBC (Bld) 82.5 % Critically high 43.0-75.0 [facility] Comment on above: Performed By: #### C BC ####[facility] Xwinczxdjs688[address] [place], [place] [address]Dr. Chrissy Frazier Platelet mean volume (Bld) [Entitic vol] 10.0 fL Normal 9.5-13.5 [facility] Comment on above: Performed By: #### C BC ####[facility] Iozrvmqxfq092[address] [place], [place] [address]Dr. Chrissy Frazier PLT 370 103/ul Normal 150-450 [facility] Comment on above: Performed By: #### C BC ####[facility] Ewmjanljcw018[address] [place], [place] [address]Dr. Chrissy Frazier RBC 5.38 106/ul Normal 4.70-6.10 [facility] Comment on above: Performed By: #### C BC ####[facility] Mazyumvutu544[address] [place], [place] [address]Dr. Chrissy Frazier WBC 15.8 103/ul Critically high 4.0-11.0 [facility] Comment on above: Performed By: #### C BC ####[facility] Ymnmlannjr8555 [place] [address]Dr. Chrissy Frazier CULTURE URINEon 07-01-2022 CULTURE URINE Culture Observations: No growth Normal [facility] Comment on above: Performed By: #### U RCX ####[facility] Wzqlnzikfo0730[address] [place], [place] [address]Dr. Chrissy Frazier Covid-19 PCR (CVDTB)on 06-21 SARS-CoV-2 (COVID-19) RNA RHIANNON+probe Ql (Unsp spec) Not detected Normal NOT DETECTED [facility] Comment on above: Result Comment: When [...] for this test is supported by the [place] of Health and Human Service's declaration that [...] be used). Performed By: #### C VDTBH ####[facility] Ldctlfospv8516 [place] [address]Dr. Chrissy Freddie DRUG SCREEN RAPID (URINE)on 07-01-2022 AMP Negative Normal NEGATIVE [facility] Comment on above: Performed By: #### D REYES UAMIC ####[facility] Tlaxchdbeh9071 [place] [address]Dr. Chrissy Frazier BAR Negative Normal NEGATIVE [facility] Comment on above: Performed By: #### D CHAYAD, UAMIC ####[facility] Gfyzyohhsu3605 [place] [address]Dr. Chrissy Frazier BUP Negative Normal NEGATIVE [facility] Comment on above: Performed By: #### D REYES UAMIC ####[facility] Mjbajxbwqy9310 [place] [address]Dr. Tishrowan Frazier BZO Negative Normal NEGATIVE [facility] Comment on above: Performed By: #### D REYES UAMIC ####[facility] Vrzlhceeqv3085 [place] [address]Dr. Chrissy Frazier LAUREN Negative Normal NEGATIVE [facility] Comment on above: Performed By: #### Amelie CHAMBERS UAMIC ####[facility] Bpnxjdsilo59[address] [place], [place] [address]Dr. Chrissy Frazier CUT-OFFS SEE BELOW Normal [facility] Comment on above: Result Comment: AMP [...] ng/mL Performed By: #### Amelie CHAMBERS UAMIC ####[facility] Zxtzwstiji544[address] [place], [place] [address]Dr. Chrissy Frazier DRUG CUT HEADER DRUG CLASS TEST SYSTEM CUT-OFF CONCENTRATIONS ARE FOLLOWS: Normal [facility] Comment on above: Performed By: #### Amelie CHAMBERS UAMIC ####[facility] Yjtdxrrjhg294[address] [place], [place] [address]Dr. Chrissy Frazier mAMP Negative Normal NEGATIVE [facility] Comment on above: Performed By: #### Amelie CHAMBERS UAMIC ####[facility] Zuedrxsquh2067[address] [place], [place] [address]Dr. Chrissy Frazier MTD Negative Normal NEGATIVE [facility] Comment on above: Performed By: #### Amelie CHAMBERS UAMIC ####[facility] Iodqfeqexv9832[address] [place], [place] [address]Dr. Chrissy Frazier OPI Negative Normal NEGATIVE [facility] Comment on above: Performed By: #### Amelie CHAMBERS UAMIC ####[facility] Diqzzckrjq095[address] [place], [place] [address]Dr. Chrissy Frazier OXY Negative Normal NEGATIVE [facility] Comment on above: Performed By: #### D REYES, UAMIC ####[facility] Stcbxxsjxa8166 [place] [address]Dr. Chrissy Frazier PCP Negative Normal NEGATIVE [facility] Comment on above: Performed By: #### D REYES, UAMIC ####[facility] Lchdbjxfrq3626 [place] [address]Dr. Chrissy Frazier PPX Negative Normal NEGATIVE [facility] Comment on above: Performed By: #### D REYES, UAMIC ####[facility] Ckhtaceybp6978 [place] [address]Dr. Chrissy Frazier TCA Negative Normal NEGATIVE [facility] Comment on above: Performed By: #### D REYES UAMIC ####[facility] Xirlgogfre155[address] [place], [place] [address]Dr. Chrissy Frazier THC Positive Abnormal NEGATIVE [facility] Comment on above: Performed By: #### D REYES UAMIC ####[facility] Gmakfyimro458[address] [place], [place] [address]Dr. Chrissy Frazier LACTATE/LACTIC ACIDon 2021 Lactate [Moles/Vol] 4.4 mmol/L Critically high 0.4-1.9 [facility] Comment on above: Performed By: #### L ACT ####[facility] Ecncydykof497[address] [place], [place] [address]Dr. Chrissy Frazier LIPASEon 07-01-2022 Lipase [Catalytic activity/Vol] 57.0 U/L Critically low 73.0-393.0 [facility] Comment on above: Performed By: #### A MY, PHOS, CMP, LIPA ####[facility] Ouhcqjvhhb380[address] [place], [place] [address]Dr. Chrissy Frazier PHOSPHORUSon 07-01-2022 Phosphate [Mass/Vol] 1.4 mg/dL Critically low 2.6-4.7 [facility] Comment on above: Performed By: #### A MY, PHOS, CMP, LIPA ####[facility] Pnrlvfeulj219[address] [place], [place] [address]Dr. Chrsisy Frazier PROF 14(COMP METB)on 022 Albumin [Mass/Vol] 4.2 g/dL Normal 3.4-5.0 [facility] Comment on above: Performed By: #### A MY, PHOS, CMP, LIPA ####[facility] Nsvhymhlyk6422 [place] [address]Dr. Chrissy Frazier Albumin/Globulin [Mass ratio] 1.1 {ratio} Normal [facility] Comment on above: Performed By: #### A MY, PHOS, CMP, LIPA ####[facility] Neblpgmveb6573 [place] [address]Dr. Chrissy Frazier ALP [Catalytic activity/Vol] 73 U/L Normal 46-116 [facility] Comment on above: Performed By: #### A MY, PHOS, CMP, LIPA ####[facility] Smbkmlqldb8472 [place] [address]Dr. Chrissy Frazier ALT [Catalytic activity/Vol] 43 U/L Normal 16-63 [facility] Comment on above: Performed By: #### A MY, PHOS, CMP, LIPA ####[facility] Yfsefvlnmj1641 [place] [address]Dr. Chrissy Frazier Anion gap [Moles/Vol] 19.0 mmol/L Normal [facility] Comment on above: Performed By: #### A MY, PHOS, CMP, LIPA ####[facility] Fvfuxbzqpx2209 [place] [address]Dr. Chrissy Frazier AST [Catalytic activity/Vol] 21 U/L Normal 15-37 [facility] Comment on above: Performed By: #### A MY, PHOS, CMP, LIPA ####[facility] Ibtccgolja1922 [place] [address]Dr. Chrissy Frazier Bilirubin [Mass/Vol] 0.5 mg/dL Normal 0.2-1.0 [facility] Comment on above: Performed By: #### A MY, PHOS, CMP, LIPA ####[facility] Unjjvnnsdq6774 [place] [address]Dr. Chrissy Frazier Calcium [Mass/Vol] 9.3 mg/dL Normal 8.5-10.1 [facility] Comment on above: Performed By: #### A MY, PHOS, CMP, LIPA ####[facility] Czobramvje6608 [place] [address]Dr. Chrissy Frazier Chloride [Moles/Vol] 103 mmol/L Normal 98-107 [facility] Comment on above: Performed By: #### A MY, PHOS, CMP, LIPA ####[facility] Butelvynir9820 [place] [address]Dr. Chrissy Frazier CO2 [Moles/Vol] 21.1 mmol/L Normal 21.0-32.0 [facility] Comment on above: Performed By: #### A MY, PHOS, CMP, LIPA ####[facility] Xdmvhhvatn[address] [place], [place] [address]Dr. Chrissy Frazier Creatinine [Mass/Vol] 1.44 mg/dL Critically high 0.70-1.30 [facility] Comment on above: Performed By: #### A MY, PHOS, CMP, LIPA ####[facility] Vhvwvajvxh[address] [place], [place] [address]Dr. Chrissy Frazier EGFR-AF [place] >60 Normal >=60 [facility] Comment on above: Performed By: #### A MY, PHOS, CMP, LIPA ####[facility] Iubucnhray2[address] [place] [address]Dr. Chrissy Frazier EGFR-NON AF [place] 57 mL/min/1.73m2 Critically low >=60 [facility] Comment on above: Performed By: #### A MY, PHOS, CMP, LIPA ####[facility] Rmhobynyar[address] [place] [address]Dr. Chrissy Frazier Globulin (S) [Mass/Vol] 3.9 g/dL Normal [facility] Comment on above: Performed By: #### A MY, PHOS, CMP, LIPA ####[facility] Hvotunfsgb6220 [place] [address]Dr. Chrissy Frazier Glucose [Mass/Vol] 148 mg/dL Critically high 74-106 [facility] Comment on above: Performed By: #### A MY, PHOS, CMP, LIPA ####[facility] Tytikubfca4471 [place] [address]Dr. Chrissy Frazier Potassium [Moles/Vol] 3.1 mmol/L Critically low 3.5-5.1 [facility] Comment on above: Performed By: #### A MY, PHOS, CMP, LIPA ####[facility] Udhhwgjkmf4306 [place] [address]Dr. Chrissy Frazier Protein [Mass/Vol] 8.1 g/dL Normal 6.4-8.2 [facility] Comment on above: Performed By: #### A MY, PHOS, CMP, LIPA ####[facility] Zesmlvuqds9850 [place] [address]Dr. Chrissy Frazier Sodium [Moles/Vol] 140 mmol/L Normal 136-145 [facility] Comment on above: Performed By: #### A MY, PHOS, CMP, LIPA ####[facility] Vdlucfxmkz8998 [place] [address]Dr. Chrissy Frazier Urea nitrogen [Mass/Vol] 10.0 mg/dL Normal 7.0-18.0 [facility] Comment on above: Performed By: #### A MY, PHOS, CMP, LIPA ####[facility] Hlzmsiesup7619 [place] [address]Dr. Chrissy Frazier Urea nitrogen/Creatinine [Mass ratio] 6.9 mg/mg Normal [facility] Comment on above: Performed By: #### A MY, PHOS, CMP, LIPA ####[facility] Mfjkjhegow8047 [place] [address]Dr. Chrissy Freddie UA RANDOM W/MICROSCOPICon BACTERIA TRACE Abnormal NONE SEEN [facility] Comment on above: Performed By: #### D REYES UAMIC ####[facility] Azznkibtlb7322 [place] [address]Dr. Tishrowan Freddie Bilirubin Ql (U) Negative Normal NEGATIVE [facility] Comment on above: Performed By: #### D REYES UAMIC ####[facility] Adhdzufonz31[address] [place] [address]Dr. Chrissy Frazier CAST NONE SEEN Normal NONE SEEN [facility] [facility] Comment on above: Performed By: #### Amelie CHAMBERS UAMIC ####[facility] Vxutqtfvki[address] [place], [place] [address]Dr. Chrissy Frazier Clarity (U) CLEAR Normal CLEAR The [facility] Comment on above: Performed By: #### Amelie CHAMBERS UAMIC ####[facility] Ixoncjpwzb[address] [place] [address]Dr. Chrissy Frazier Color (U) YELLOW Normal YELLOW The [facility] Comment on above: Performed By: #### Amelie CHAMBERS UAMIC ####[facility] Ftezbclney[address] [place], [place] [address]Dr. Chrissy Frazier Crystals LM Nom (Urine sed) NONE SEEN Normal NONE SEEN The [facility] Comment on above: Performed By: #### Amelie CHAMBERS UAMIC ####[facility] Nuljhteuiq[address] [place], [place] [address]Dr. Chrissy Frazier Epithelial cells LM Ql (Urine sed) RARE Normal NONE SEEN /RARE The [facility] Comment on above: Performed By: #### Amelie CHAMBERS UAMIC ####[facility] Sdwjwsqrrw69[address] [place], [place] [address]Dr. Chrissy Frazier Glucose Ql (U) Negative Normal NEGATIVE The [facility] Comment on above: Performed By: #### Amelie CHAMBERS UAMIC ####[facility] Sivwbgkmbw[address] [place], [place] [address]Dr. Chrissy Frazier Hemoglobin Ql (U) Negative Normal NEGATIVE The [facility] Comment on above: Performed By: #### Amelie CHAMBERS UAMIC ####[facility] Jtvulfmnol[address] [place], [place] [address]Dr. Chrissy Frazier Ketones Ql (U) 40 mg/dl Abnormal NEGATIVE The [facility] Comment on above: Performed By: #### Amelie CHAMBERS UAMIC ####[facility] Krtxzpzuur[address] [place], [place] [address]Dr. Chrissy Frazier LEUKOCYTES Negative Normal NEGATIVE The [facility] Comment on above: Performed By: #### Amelie CHAMBERS, UAMIC ####[facility] Surudrwnhd[address] [place] [address]Dr. Chrissy Frazier MUCOUS MODERATE Abnormal NONE SEEN The [facility] Comment on above: Performed By: #### Amelie CHAMBERS, UAMIC ####[facility] Spdtywkjrd[address] [place] [address]Dr. Chrissy Frazier Nitrite Ql (U) Negative Normal NEGATIVE The [facility] Comment on above: Performed By: #### Amelie CHAMBERS UAMIC ####[facility] Tioeqlodeb649[address] [place], [place] [address]Dr. Chrissy Frazier pH (U) 6.0 [pH] Normal 5-9 The [facility] Comment on above: Performed By: #### Amelie CHAMBERS UAMIC ####[facility] Swziobxasi36[address] [place], [place] [address]Dr. Chrissy Frazier RBC 0-2 Normal 0-2 The [facility] Comment on above: Performed By: #### Amelie CHAMBERS UAMIC ####[facility] Uqznmbbijg168[address] [place], [place] [address]Dr. Chrissy Frazier SPEC GRAVITY 1.020 Normal 1.005-<=1.025 The [facility] Comment on above: Performed By: #### Amelie CHAMBERS UAMIC ####[facility] Tmewkfuawu[address] [place], [place] [address]Dr. Chrissy Frazier UA PROTEIN Negative Normal NEGATIVE/ TRACE The [facility] Comment on above: Performed By: #### Amelie CHAMBERS UAMIC ####[facility] Vnbntpgdor[address] [place], [place] [address]Dr. Chrissy Frazier Urobilinogen Qn (U) 0.2 {Estrellita'U}/dL Normal 0.2 - 1. 0 The [facility] Comment on above: Performed By: #### Amelie CHAMBERS UAMIC ####[facility] Tndovjsoyq[address] [place], [place] [address]Dr. Chrissy Frazier WBC 0-2 Abnormal NONE SEEN The [facility] Comment on above: Performed By: #### D RUGRPD, UAMIC ####[facility] Sxaberjjdb4863 [place], [place] [address]Br. Chrissy Frazier XR ABD FLAT UP_PA Enoch 07-01 XR ABD FLAT UP_PA CH Normal The [facility] Covid-19 PCR (CVDTB)on SARS-CoV-2 (COVID-19) RNA RHIANNON+probe Ql (Unsp spec) Not detected Normal NOT DETECTED The [facility] Comment on above: Result Comment: When [...] for this test is supported by the [employer] Specialist of Health and Human Service's declaration that [...] used). Performed By: #### C VDNEW [facility] ####[facility] Tguytfapzd2299 [place], [place] [address]Du. Chrissy Frazier SYMPTOMATIC COVID-19 ANTIGEN on 04-23-2022 EUA Statement SEE BELOW Normal The [facility] Comment on above: Result [...] revoked sooner. Performed By: #### C VDAGS ####[facility] Skazdulnto[address] [place] [address]Dr. Chrissy Frazier SARS-CoV-2 (COVID-19) RNA RHIANNON+probe Ql (Unsp spec) Negative Normal NEGATIVE The [facility] Comment on above: Performed By: #### C VDAGS ####[facility] Ropbvroapv456[address] [place], [place] [address]Dr. Chrissy Frazier AMYLASEon 04-04-2022 Amylase [Catalytic activity/Vol] 40 U/L Normal 25-115 The [facility] Comment on above: Performed By: #### C MP, TERRENCE, LIPA ####[facility] Pkfufnvidd[address] [place], [place] [address]Dr. Chrissy Frazier CBC AUTO DIFFon 04-04-2022 BASO # 0.1 103/ul Normal 0.0-0.1 [facility] Comment on above: Performed By: #### C BC ####[facility] Prnajdylcp[address] [place], [place] [address]Dr. Chrissy Frazier Basophils/100 WBC (Bld) 0.4 % Normal 0.2-2.0 The [facility] Comment on above: Performed By: #### C BC ####[facility] Liebxmirhe6423[address] [place], [place] [address]Dr. Chrissy Frazier EO # 0.1 103/ul Normal 0.0-0.7 The [facility] Comment on above: Performed By: #### C BC ####[facility] Tlrlcyyrhm7[address] [place], [place] [address]Dr. Chrissy Frazier Eosinophils/100 WBC (Bld) 0.6 % Critically low 0.9-7.0 The [facility] Comment on above: Performed By: #### C BC ####[facility] Tofzobauhz18[address] [place], [place] [address]Dr. Chrissy Frazier Erythrocyte distribution width (RBC) [Ratio] 13.2 % Normal 11.0-15.0 The [facility] Comment on above: Performed By: #### C BC ####[facility] Uipbsuefrs[address] [place] [address]Dr. Chrissy Frazier Hematocrit (Bld) [Volume fraction] 48.3 % Normal 42.0-54.0 [facility] Comment on above: Performed By: #### C BC ####[facility] Zxrbcatkky[address] [place] [address]Dr. Chrissy Frazier Hemoglobin (Bld) [Mass/Vol] 16.1 g/dL Normal 14.0-18.0 [facility] Comment on above: Performed By: #### C BC ####[facility] Klogckehcb74[address] [place], [place] [address]Dr. Chrissy Frazier IG # 0.12 10e3/ul Critically high 0.00-0.03 [facility] Comment on above: Performed By: #### C BC ####[facility] Xvztzggeto026[address] [place], [place] [address]Dr. Chrissy Frazier IG % 0.9 % Critically high 0.0-0.5 [facility] Comment on above: Performed By: #### C BC ####[facility] Oewyvvkdcl91[address] [place], [place] [address]Dr. Chrissy Frazier LYMPH # 3.0 103/ul Normal 1.2-3.8 [facility] Comment on above: Performed By: #### C BC ####[facility] Yuubtgrwah[address] [place], [place] [address]Dr. Chrissy Frazier Lymphocytes/100 WBC (Bld) 22.3 % Normal 20.5-60.0 [facility] Comment on above: Performed By: #### C BC ####[facility] Glltabrlhk[address] [place], [place] [address]DrNancy Frazier MANUAL DIFF REQ NO Normal [facility] Comment on above: Performed By: #### C BC ####[facility] Ilgrnetkra8[address] [place], [place] [address]DrNancy Frazier MCH (RBC) [Entitic mass] 28.6 pg Normal 25.9-34.0 [facility] Comment on above: Performed By: #### C BC ####[facility] Kyygunvhfb[address] [place] [address]Dr. Chrissy Freddie MCHC (RBC) [Mass/Vol] 33.3 g/dL Normal 29.9-35.2 [facility] Comment on above: Performed By: #### C BC ####[facility] Odfcxkefzh8174 [place] [address]Dr. Tishrowan Freddie MCV (RBC) [Entitic vol] 85.9 fL Normal 80.0-94.0 [facility] Comment on above: Performed By: #### C BC ####[facility] Luqdfsarif[address] [place], [place] [address]Dr. Chrissy Frazier MONO # 0.8 103/ul Normal 0.3-0.8 The [facility] Comment on above: Performed By: #### C BC ####[facility] Ovxwucwvkq424[address] [place], [place] [address]Dr. Chrissy Frazier Monocytes/100 WBC (Bld) 5.7 % Normal 1.7-12.0 [facility] Comment on above: Performed By: #### C BC ####[facility] Snpkiuvvnz7[address] [place], [place] [address]Dr. Chrissy Frazier NEUT # 9.3 103/ul Critically high 1.4-6.5 [facility] Comment on above: Performed By: #### C BC ####[facility] Gdqhzmvxzv9[address] [place], [place] [address]Dr. Chrissy Frazier Neutrophils/100 WBC (Bld) 70.1 % Normal 43.0-75.0 The [facility] Comment on above: Performed By: #### C BC ####[facility] Hmdqvradnh[address] [place], [place] [address]DrNancy Frazier Platelet mean volume (Bld) [Entitic vol] 10.3 fL Normal 9.5-13.5 The [facility] Comment on above: Performed By: #### C BC ####[facility] Tkymdatxly8[address] [place], [place] [address]Dr. Chrissy Frazier PLT 461 103/ul Critically high 150-450 [facility] Comment on above: Performed By: #### C BC ####[facility] Oeucixsyid[address] [place] [address]Dr. Tishrowan Freddie RBC 5.62 106/ul Normal 4.70-6.10 The [facility] Comment on above: Performed By: #### C BC ####[facility] Sowiiixhfk2131 [place] [address]Dr. Chrissy Frazier WBC 13.3 103/ul Critically high 4.0-11.0 [facility] Comment on above: Performed By: #### C BC ####[facility] Kxufvdolda[address] [place] [address]Dr. Chrissy Frazier LIPASEon 04-04-2022 Lipase [Catalytic activity/Vol] 118.0 U/L Normal 73.0-393.0 [facility] Comment on above: Performed By: #### C MP, TERRENCE, LIPA ####[facility] Hatighzvib[address] [place] [address]Dr. Chrissy Frazier PROF 14(COMP METB)on 022 Albumin [Mass/Vol] 4.3 g/dL Normal 3.4-5.0 [facility] Comment on above: Performed By: #### C MP, TERRENCE, LIPA ####[facility] Bocrcijllr34[address] [place] [address]Dr. Chrissy Frazier Albumin/Globulin [Mass ratio] 1.0 {ratio} Normal The [facility] Comment on above: Performed By: #### C MP, TERRENCE, LIPA ####[facility] Ogvadmsrro44[address] [place] [address]Dr. Chrissy Frazier ALP [Catalytic activity/Vol] 84 U/L Normal 46-116 [facility] Comment on above: Performed By: #### C MP, TERRENCE, LIPA ####[facility] Hjtfactktf2753 [place] [address]Dr. Chrissy Frazier ALT [Catalytic activity/Vol] 81 U/L Critically high 16-63 [facility] Comment on above: Performed By: #### C MP, TERRENCE, LIPA ####[facility] Gdxbeaodxw0248 [place] [address]Dr. Chrissy Frazier Anion gap [Moles/Vol] 17.9 mmol/L Normal [facility] Comment on above: Performed By: #### C MP, TERRENCE, LIPA ####[facility] Bcsuapcksh[address] [place] [address]Dr. Chrissy Frazier AST [Catalytic activity/Vol] 25 U/L Normal 15-37 The [facility] Comment on above: Performed By: #### C MP, TERRENCE, LIPA ####[facility] Omhsreqzsc5176 [place] [address]Dr. Chrissy Frazier Bilirubin [Mass/Vol] 0.5 mg/dL Normal 0.2-1.0 The [facility] Comment on above: Performed By: #### C MP, TERRENCE, LIPA ####[facility] Alabwcnrtd[address] [place] [address]Dr. Chrissy Frazier Calcium [Mass/Vol] 9.6 mg/dL Normal 8.5-10.1 [facility] Comment on above: Performed By: #### C MP, TERRENCE, LIPA ####[facility] Yqsgjjymuv5[address] [place] [address]Dr. Chrissy Frazier Chloride [Moles/Vol] 101 mmol/L Normal 98-107 [facility] Comment on above: Performed By: #### C MP, TERRENCE, LIPA ####[facility] Tqhxihivmt8[address] [place] [address]Dr. Chrissy Frazier CO2 [Moles/Vol] 18.6 mmol/L Critically low 21.0-32.0 The [facility] Comment on above: Performed By: #### C MP, TERRENCE, LIPA ####[facility] Awqdmzurjv85[address] [place] [address]Dr. Chrissy Frazier Creatinine [Mass/Vol] 1.39 mg/dL Critically high 0.70-1.30 [facility] Comment on above: Performed By: #### C MP, TERRENCE, LIPA ####[facility] Ggzagkzjzz[address] [place] [address]Dr. Chrissy Frazier EGFR-AF [place] >60 Normal >=60 [facility] Comment on above: Performed By: #### C MP, TERRENCE, LIPA ####[facility] Dfgixrhpir[address] [place] [address]Dr. Chrissy Frazier EGFR-NON AF [place] 59 mL/min/1.73m2 Critically low >=60 [facility] Comment on above: Performed By: #### C MP, TERRENCE, LIPA ####[facility] Mpbsexbvix[address] [place] [address]Dr. Chrissy Frazier Globulin (S) [Mass/Vol] 4.3 g/dL Normal [facility] Comment on above: Performed By: #### C MP, TERRENCE, LIPA ####[facility] Sgxephdsvz38[address] [place] [address]Dr. Chrissy Frazier Glucose [Mass/Vol] 132 mg/dL Critically high 74-106 [facility] Comment on above: Performed By: #### C MP, TERRENCE, LIPA ####[facility] Exoxlgivzc[address] [place], [place] [address]Dr. Chrissy Frazier Potassium [Moles/Vol] 3.5 mmol/L Normal 3.5-5.1 [facility] Comment on above: Performed By: #### C MP, TERRENCE, LIPA ####[facility] Ajfvxyelnf9667[address] [place], [place] [address]Dr. Chrissy Frazier Protein [Mass/Vol] 8.6 g/dL Critically high 6.4-8.2 [facility] Comment on above: Performed By: #### C MP, TERRENCE, LIPA ####[facility] Zxvcenwqqm20[address] [place] [address]Dr. Chrissy Frazier Sodium [Moles/Vol] 134 mmol/L Critically low 136-145 [facility] Comment on above: Performed By: #### C MP, TERRENCE, LIPA ####[facility] Lsghntslnv6241 [place] [address]Dr. Chrissy Frazier Urea nitrogen [Mass/Vol] 8.0 mg/dL Normal 7.0-18.0 [facility] Comment on above: Performed By: #### C MP, TERRENCE, LIPA ####[facility] Aubwodajyf24[address] [place] [address]Dr. Chrissy Frazier Urea nitrogen/Creatinine [Mass ratio] 5.8 mg/mg Normal [facility] Comment on above: Performed By: #### C TERRENCE ADAIR LIPA ####[facility] Tmglqpvtun23[address] [place] [address]Dr. Chrissy Frazier XR ABD FLAT UP_PA Enoch 04-04 XR ABD FLAT UP_PA CH Normal The [facility] AMMONIAon 03-31-2022 Ammonia (P) [Moles/Vol] 19 umol/L Normal 11-32 [facility] Comment on above: Performed By: #### A MM ####[facility] Yumwwhnzvu[address] [place], [place] [address]Dr. Chrissy Freddie CBC AUTO DIFFon 03-31-2022 BASO # 0.1 103/ul Normal 0.0-0.1 [facility] Comment on above: Performed By: #### C BC ####[facility] Wtyzvdnikf969[address] [place], [place] [address]Dr. Chrissy Freddie Basophils/100 WBC (Bld) 0.5 % Normal 0.2-2.0 The [facility] Comment on above: Performed By: #### C BC ####[facility] Rxbuhwmkwn225[address] [place], [place] [address]Dr. Chrissy Frazier EO # 0.2 103/ul Normal 0.0-0.7 [facility] Comment on above: Performed By: #### C BC ####[facility] Qeioicyuif41[address] [place], [place] [address]Dr. Tishrowan Frazier Eosinophils/100 WBC (Bld) 1.6 % Normal 0.9-7.0 [facility] Comment on above: Performed By: #### C BC ####[facility] Qqkfahxuus[address] [place], [place] [address]Dr. Chrissy Freddie Erythrocyte distribution width (RBC) [Ratio] 13.2 % Normal 11.0-15.0 [facility] Comment on above: Performed By: #### C BC ####[facility] Jgfbwmjmbo0840[address] [place], [place] [address]Dr. Chrissy Frazier Hematocrit (Bld) [Volume fraction] 42.1 % Normal 42.0-54.0 [facility] Comment on above: Performed By: #### C BC ####[facility] Pbccwsdgui3318 [place] [address]Dr. Chrissy Frazier Hemoglobin (Bld) [Mass/Vol] 14.3 g/dL Normal 14.0-18.0 [facility] Comment on above: Performed By: #### C BC ####[facility] Hecozrjaep[address] [place] [address]Dr. Chrissy Frazier IG # 0.05 10e3/ul Critically high 0.00-0.03 [facility] Comment on above: Performed By: #### C BC ####[facility] Qbuougveet4876 [place] [address]Dr. Chrissy Frazier IG % 0.5 % Normal 0.0-0.5 [facility] Comment on above: Performed By: #### C BC ####[facility] Cruyajdodz9054 [place] [address]Dr. Chrissy Frazier LYMPH # 2.9 103/ul Normal 1.2-3.8 [facility] Comment on above: Performed By: #### C BC ####[facility] Hldpqgldoq0503 [place] [address]Dr. Chrissy Frazier Lymphocytes/100 WBC (Bld) 25.7 % Normal 20.5-60.0 [facility] Comment on above: Performed By: #### C BC ####[facility] Cdjotcywjn7943 [place] [address]Dr. Chrissy Frazier MANUAL DIFF REQ NO Normal [facility] Comment on above: Performed By: #### C BC ####[facility] Cljabwgiav2728 [place] [address]Dr. Chrissy Frazier MCH (RBC) [Entitic mass] 29.2 pg Normal 25.9-34.0 [facility] Comment on above: Performed By: #### C BC ####[facility] Rcvdjiuahk6646 [place] [address]Dr. Chrissy Frazier MCHC (RBC) [Mass/Vol] 34.0 g/dL Normal 29.9-35.2 [facility] Comment on above: Performed By: #### C BC ####[facility] Fygyxyivoz5083 [place] [address]Dr. Chrissy Frazier MCV (RBC) [Entitic vol] 85.9 fL Normal 80.0-94.0 [facility] Comment on above: Performed By: #### C BC ####[facility] Juyjwoekoh0797 [place] [address]Dr. Chrissy Freddie MONO # 1.0 103/ul Critically high 0.3-0.8 [facility] Comment on above: Performed By: #### C BC ####[facility] Tyzccdmtvl3683 [place] [address]Dr. Chrissy Frazier Monocytes/100 WBC (Bld) 8.6 % Normal 1.7-12.0 [facility] Comment on above: Performed By: #### C BC ####[facility] Dhwsvywhbv[address] [place], [place] [address]Dr. Chrissy Frazier NEUT # 7.0 103/ul Critically high 1.4-6.5 [facility] Comment on above: Performed By: #### C BC ####[facility] Ttngqakrsd155[address] [place], [place] [address]Dr. Tishrowan Frazier Neutrophils/100 WBC (Bld) 63.1 % Normal 43.0-75.0 [facility] Comment on above: Performed By: #### C BC ####[facility] Gyclcwuejz3269 [place] [address]Dr. Tishrowan Frazier Platelet mean volume (Bld) [Entitic vol] 10.4 fL Normal 9.5-13.5 [facility] Comment on above: Performed By: #### C BC ####[facility] Hluyfkwbmd1686 [place] [address]Dr. Chrissy Frazier PLT 308 103/ul Normal 150-450 [facility] Comment on above: Performed By: #### C BC ####[facility] Vumjcraimq74[address] [place], [place] [address]Dr. Chrissy Frazier RBC 4.90 106/ul Normal 4.70-6.10 [facility] Comment on above: Performed By: #### C BC ####[facility] Wusxkahogy7797 [place] [address]Dr. Tishrowan Freddie WBC 11.1 103/ul Critically high 4.0-11.0 [facility] Comment on above: Performed By: #### C BC ####[facility] Oirekzdmir2075 [place] [address]Dr. Chrissy Frazier PROF 14(COMP METB)on 022 Albumin [Mass/Vol] 3.5 g/dL Normal 3.4-5.0 [facility] Comment on above: Performed By: #### C MP ####[facility] Hxklhgebxy[address] [place], [place] [address]Dr. Chrissy Frazier Albumin/Globulin [Mass ratio] 0.9 {ratio} Normal [facility] Comment on above: Performed By: #### C MP ####[facility] Zmdjvficvf[address] [place], [place] [address]Dr. Tishrowan Frazier ALP [Catalytic activity/Vol] 68 U/L Normal 46-116 [facility] Comment on above: Performed By: #### C MP ####[facility] Vzdugwtvtu[address] [place], [place] [address]Dr. Chrissy Frazier ALT [Catalytic activity/Vol] 113 U/L Critically high 16-63 [facility] Comment on above: Performed By: #### C MP ####[facility] Conasowdvj[address] [place], [place] [address]Dr. Chrissy Frazier Anion gap [Moles/Vol] 14.0 mmol/L Normal [facility] Comment on above: Performed By: #### C MP ####[facility] Dzfalpwocr84[address] [place], [place] [address]Dr. Chrissy Frazier AST [Catalytic activity/Vol] 31 U/L Normal 15-37 [facility] Comment on above: Performed By: #### C MP ####[facility] Zeqpppljgi422[address] [place], [place] [address]Dr. Chrissy Frazier Bilirubin [Mass/Vol] 0.6 mg/dL Normal 0.2-1.0 [facility] Comment on above: Performed By: #### C MP ####[facility] Alcbgieeel117[address] [place], [place] [address]Dr. Chrissy Frazier Calcium [Mass/Vol] 8.4 mg/dL Critically low 8.5-10.1 Th e [facility] Comment on above: Performed By: #### C MP ####[facility] Qnpddkvueo832198 [address] [place], [place] [address]Dr. Chrissy Frazier Chloride [Moles/Vol] 101 mmol/L Normal 98-107 The [facility] Comment on above: Performed By: #### C MP ####[facility] Hmapveiauf750[address] [place], [place] [address]Dr. Chrissy Frazier CO2 [Moles/Vol] 24.2 mmol/L Normal 21.0-32.0 [facility] Comment on above: Performed By: #### C MP ####[facility] Phyuypcxiq159[address] [place], [place] [address]Dr. Chrissy Frazier Creatinine [Mass/Vol] 1.15 mg/dL Normal 0.70-1.30 The [facility] Comment on above: Performed By: #### C MP ####[facility] Hskdigriys950[address] [place], [place] [address]Dr. Chrissy Frazier EGFR-AF [place] >60 Normal >=60 [facility] Comment on above: Performed By: #### C MP ####[facility] Dimowqkfhz896[address] [place], [place] [address]Dr. Chrissy Frazier EGFR-NON AF [place] >60 Normal >=60 The [facility] Comment on above: Performed By: #### C MP ####[facility] Geubhhhkpq159098 [address] [place], [place] [address]Dr. Chrissy Frazier Globulin (S) [Mass/Vol] 3.8 g/dL Normal The [facility] Comment on above: Performed By: #### C MP ####[facility] Akpxgewngy0117[address] [place], [place] [address]Dr. Chrissy Frazier Glucose [Mass/Vol] 100 mg/dL Normal 74-106 [facility] Comment on above: Performed By: #### C MP ####[facility] Asgovponqa[address] [place] [address]Dr. Chrissy Frazier Potassium [Moles/Vol] 3.2 mmol/L Critically low 3.5-5.1 [facility] Comment on above: Performed By: #### C MP ####[facility] Okyygmyhos036[address] [place], [place] [address]Dr. Chrissy Frazier Protein [Mass/Vol] 7.3 g/dL Normal 6.4-8.2 [facility] Comment on above: Performed By: #### C MP ####[facility] Cybsygfkbx416[address] [place], [place] [address]Dr. Chrissy Frazier Sodium [Moles/Vol] 136 mmol/L Normal 136-145 [facility] Comment on above: Performed By: #### C MP ####[facility] Plvxnwwunh614398 [address] [place], [place] [address]Dr. Chrissy Frazier Urea nitrogen [Mass/Vol] 13.0 mg/dL Normal 7.0-18.0 [facility] Comment on above: Performed By: #### C MP ####[facility] Ghuozyrkaw8688[address] [place], [place] [address]Dr. Chrissy Frazier Urea nitrogen/Creatinine [Mass ratio] 11.3 mg/mg Normal [facility] Comment on above: Performed By: #### C MP ####[facility] Qwbbnfwehl5765[address] [place], [place] [address]Dr. Chrissy Frazier AMMONIAon 03-30-2022 Ammonia (P) [Mass/Vol] ug/dL Critically low 11-32 [facility] Comment on above: Performed By: #### A MM ####[facility] Zslddiwxiz379798 [address] [place], [place] [address]Dr. Chrissy Frazier CBC AUTO DIFFon 03-30-2022 BASO # 0.1 103/ul Normal 0.0-0.1 [facility] Comment on above: Performed By: #### C BC ####[facility] Szjfeptxvs240[address] [place], [place] [address]Dr. Chrissy Frazier Basophils/100 WBC (Bld) 0.5 % Normal 0.2-2.0 The [facility] Comment on above: Performed By: #### C BC ####[facility] Nugxmlruka[address] [place] [address]Dr. Chrissy Frazier EO # 0.1 103/ul Normal 0.0-0.7 The [facility] Comment on above: Performed By: #### C BC ####[facility] Afvpjgzabq129198 [address] [place], [place] [address]Dr. Chrissy Frazier Eosinophils/100 WBC (Bld) 1.1 % Normal 0.9-7.0 The [facility] Comment on above: Performed By: #### C BC ####[facility] Nxmsuihcbs705[address] [place], [place] [address]Dr. Chrissy Frazier Erythrocyte distribution width (RBC) [Ratio] 13.4 % Normal 11.0-15.0 [facility] Comment on above: Performed By: #### C BC ####[facility] Skupqixnsq5744[address] [place], [place] [address]Dr. Chrissy Frazier Hematocrit (Bld) [Volume fraction] 45.8 % Normal 42.0-54.0 [facility] Comment on above: Performed By: #### C BC ####[facility] Mvnutpgbea430[address] [place], [place] [address]Dr. Chrissy Frazier Hemoglobin (Bld) [Mass/Vol] 14.9 g/dL Normal 14.0-18.0 The [facility] Comment on above: Performed By: #### C BC ####[facility] Gglkceswjj2418[address] [place], [place] [address]Dr. Chrissy Frazier IG # 0.05 10e3/ul Critically high 0.00-0.03 [facility] Comment on above: Performed By: #### C BC ####[facility] Bcbaagjwoi627[address] [place], [place] [address]Dr. Chrissy Frazier IG % 0.5 % Normal 0.0-0.5 The [facility] Comment on above: Performed By: #### C BC ####[facility] Uaivsucdyx240698 [address] [place], [place] [address]Dr. Chrissy Frazier LYMPH # 3.0 103/ul Normal 1.2-3.8 The [facility] Comment on above: Performed By: #### C BC ####[facility] Hdglcfrsvh04[address] [place] [address]Dr. Chrissy Frazier Lymphocytes/100 WBC (Bld) 30.2 % Normal 20.5-60.0 The [facility] Comment on above: Performed By: #### C BC ####[facility] Qpmzgxdwgd1588 [place] [address]Dr. Chrissy Frazier MANUAL DIFF REQ NO Normal [facility] Comment on above: Performed By: #### C BC ####[facility] Stpetycsai23[address] [place] [address]Dr. Chrissy Frazier MCH (RBC) [Entitic mass] 28.4 pg Normal 25.9-34.0 The [facility] Comment on above: Performed By: #### C BC ####[facility] Ffzjcimnga838[address] [place], [place] [address]Dr. Chrissy Frazier MCHC (RBC) [Mass/Vol] 32.5 g/dL Normal 29.9-35.2 The [facility] Comment on above: Performed By: #### C BC ####[facility] Tfbjiffans499[address] [place], [place] [address]Dr. Chrissy Frazier MCV (RBC) [Entitic vol] 87.4 fL Normal 80.0-94.0 The [facility] Comment on above: Performed By: #### C BC ####[facility] Cbvcgdehzt072498 [address] [place], [place] [address]Dr. Chrissy Frazier MONO # 0.8 103/ul Normal 0.3-0.8 The [facility] Comment on above: Performed By: #### C BC ####[facility] Kgtjoghrko732[address] [place], [place] [address]Dr. Chrissy Frazier Monocytes/100 WBC (Bld) 7.9 % Normal 1.7-12.0 The [facility] Comment on above: Performed By: #### C BC ####[facility] Oedjhjfxqp710[address] [place], [place] [address]Dr. Yirowan Frazier NEUT # 5.9 103/ul Normal 1.4-6.5 The [facility] Comment on above: Performed By: #### C BC ####[facility] Cgogtixuzt[address] [place] [address]DrNancy Frazier Neutrophils/100 WBC (Bld) 59.8 % Normal 43.0-75.0 [facility] Comment on above: Performed By: #### C BC ####[facility] Taacjdsfnb0004 [place] [address]DrNancy Frazier Platelet mean volume (Bld) [Entitic vol] 10.1 fL Normal 9.5-13.5 The [facility] Comment on above: Performed By: #### C BC ####[facility] Zbmebpuvpt459198 [address] [place], [place] [address]DrNancy Frazier PLT 320 103/ul Normal 150-450 The [facility] Comment on above: Performed By: #### C BC ####[facility] Yfjqdzapdc893998 [address] [place], [place] [address]DrNancy Frazier RBC 5.24 106/ul Normal 4.70-6.10 The [facility] Comment on above: Performed By: #### C BC ####[facility] Rupvjwjfqr2347[address] [place], [place] [address]DrNancy Frazier WBC 9.9 103/ul Normal 4.0-11.0 [facility] Comment on above: Performed By: #### C BC ####[facility] Fyaxexodqd794398 [address] [place], [place] [address]Dr. Chrissy Frazier PROF 14(COMP METB)on 022 Albumin [Mass/Vol] 3.9 g/dL Normal 3.4-5.0 [facility] Comment on above: Performed By: #### C MP ####[facility] Vwebocesox538[address] [place], [place] [address]DrNancy Frazier Albumin/Globulin [Mass ratio] 1.1 {ratio} Normal [facility] Comment on above: Performed By: #### C MP ####[facility] Guwpbgjoiu3750[address] [place], [place] [address]DrNancy Lowe Frazier ALP [Catalytic activity/Vol] 88 U/L Normal 46-116 [facility] Comment on above: Performed By: #### C MP ####[facility] Yvymxjvgar7713 [place] [address]Dr. Chrissy Frazier ALT [Catalytic activity/Vol] 161 U/L Critically high 16-63 [facility] Comment on above: Performed By: #### C MP ####[facility] Tghbimuhci657[address] [place], [place] [address]Dr. Chrissy Freddie Anion gap [Moles/Vol] 12.3 mmol/L Normal [facility] Comment on above: Performed By: #### C MP ####[facility] Zzootxgbay207998 [address] [place], [place] [address]Dr. Chrissy Freddie AST [Catalytic activity/Vol] 64 U/L Critically high 15-37 [facility] Comment on above: Performed By: #### C MP ####[facility] Ngixikcxuv540[address] [place], [place] [address]Dr. Chrissy Freddie Bilirubin [Mass/Vol] 0.8 mg/dL Normal 0.2-1.0 [facility] Comment on above: Performed By: #### C MP ####[facility] Mfpcxswnwq080[address] [place], [place] [address]Dr. Chrissy Freddie Calcium [Mass/Vol] 8.4 mg/dL Critically low 8.5-10.1 [facility] Comment on above: Performed By: #### C MP ####[facility] Rrjovnqlyc320[address] [place], [place] [address]Dr. Chrissy Freddie Chloride [Moles/Vol] 103 mmol/L Normal 98-107 The [facility] Comment on above: Performed By: #### C MP ####[facility] Wzjtjxubwy0812[address] [place], [place] [address]Dr. Chrissy Frazier CO2 [Moles/Vol] 26.5 mmol/L Normal 21.0-32.0 [facility] Comment on above: Performed By: #### C MP ####[facility] Tyxrkhimsc243[address] [place], [place] [address]Dr. Chrissy Frazier Creatinine [Mass/Vol] 1.24 mg/dL Normal 0.70-1.30 [facility] Comment on above: Performed By: #### C MP ####[facility] Yzvyifscrx3558 [place] [address]Dr. Chrissy Frazier EGFR-AF [place] >60 Normal >=60 [facility] Comment on above: Performed By: #### C MP ####[facility] Bveanluydn3053 [place] [address]Dr. Chrissy Freddie EGFR-NON AF [place] >60 Normal >=60 [facility] Comment on above: Performed By: #### C MP ####[facility] Wqttwjkdui2399 [place] [address]Dr. Chrissy Freddie Globulin (S) [Mass/Vol] 3.7 g/dL Normal [facility] Comment on above: Performed By: #### C MP ####[facility] Ojtdtqapyt989[address] [place], [place] [address]Dr. Chrissy Freddie Glucose [Mass/Vol] 108 mg/dL Critically high 74-106 [facility] Comment on above: Performed By: #### C MP ####[facility] Tpgnahnond0778 [place] [address]Dr. Chrissy Freddie Potassium [Moles/Vol] 3.8 mmol/L Normal 3.5-5.1 [facility] Comment on above: Performed By: #### C MP ####[facility] Zdbxvhywxh5695 [place] [address]Dr. Chrissy Freddie Protein [Mass/Vol] 7.6 g/dL Normal 6.4-8.2 [facility] Comment on above: Performed By: #### C MP ####[facility] Ajwtyubjlv0718 [place] [address]Dr. Chrissy Frazier Sodium [Moles/Vol] 138 mmol/L Normal 136-145 [facility] Comment on above: Performed By: #### C MP ####[facility] Oarsnefobu9344 [place] [address]Dr. Chrissy Freddie Urea nitrogen [Mass/Vol] 12.0 mg/dL Normal 7.0-18.0 [facility] Comment on above: Performed By: #### C MP ####[facility] Fibxvcvuyo7901[address] [place], [place] [address]Dr. Chrissy Frazier Urea nitrogen/Creatinine [Mass ratio] 9.7 mg/mg Normal [facility] Comment on above: Performed By: #### C MP ####[facility] Etsipwxpmk569098 [address] [place], [place] [address]Dr. Chrissy Frazier AMMONIAon 03-29-2022 Ammonia (P) [Moles/Vol] 27 umol/L Normal 11-32 [facility] Comment on above: Performed By: #### A MM ####[facility] Mgkdpumktk9555[address] [place], [place] [address]Dr. Chrissy Frazier AMYLASEon 03-29-2022 Amylase [Catalytic activity/Vol] 29 U/L Normal 25-115 [facility] Comment on above: Performed By: #### L IPA, TERRENCE ####[facility] Nzlsweclzg736[address] [place], [place] [address]Dr. Chrissy Frazier CBC AUTO DIFFon 03-29-2022 BASO # 0.0 103/ul Normal 0.0-0.1 [facility] Comment on above: Performed By: #### C BC ####[facility] Odlilsdsys880[address] [place], [place] [address]Dr. Chrissy Frazier Basophils/100 WBC (Bld) 0.2 % Normal 0.2-2.0 The [facility] Comment on above: Performed By: #### C BC ####[facility] Ueixflwkrg037[address] [place], [place] [address]Dr. Chrissy Frazier EO # 0.0 103/ul Normal 0.0-0.7 [facility] Comment on above: Performed By: #### C BC ####[facility] Ftulakxnlm740[address] [place], [place] [address]Dr. Chrissy Frazier Eosinophils/100 WBC (Bld) 0.4 % Critically low 0.9-7.0 The [facility] Comment on above: Performed By: #### C BC ####[facility] Wsqajdzsne836398 [address] [place], [place] [address]Dr. Chrissy Frazier Erythrocyte distribution width (RBC) [Ratio] 13.6 % Normal 11.0-15.0 [facility] Comment on above: Performed By: #### C BC ####[facility] Thmrbmmfaq3938 [place] [address]Dr. Chrissy Frazier Hematocrit (Bld) [Volume fraction] 45.2 % Normal 42.0-54.0 [facility] Comment on above: Performed By: #### C BC ####[facility] Fiswuurbzl5726[address] [place], [place] [address]Dr. Chrissy Frazier Hemoglobin (Bld) [Mass/Vol] 14.8 g/dL Normal 14.0-18.0 [facility] Comment on above: Performed By: #### C BC ####[facility] Kesioznpbr675[address] [place], [place] [address]Dr. Tishrowan Frazier IG # 0.03 10e3/ul Normal 0.00-0.03 [facility] Comment on above: Performed By: #### C BC ####[facility] Bmsyvtbdrc465[address] [place], [place] [address]Dr. Chrissy Frazier IG % 0.3 % Normal 0.0-0.5 [facility] Comment on above: Performed By: #### C BC ####[facility] Taezcayuwb317[address] [place], [place] [address]Dr. Chrissy Frazier LYMPH # 2.0 103/ul Normal 1.2-3.8 The [facility] Comment on above: Performed By: #### C BC ####[facility] Chnwcemflc749198 [address] [place], [place] [address]Dr. Chrissy Freddie Lymphocytes/100 WBC (Bld) 18.3 % Critically low 20.5-60.0 [facility] Comment on above: Performed By: #### C BC ####[facility] Zkmjptvyuy5620[address] [place], [place] [address]Dr. Tishrowan Frazier MANUAL DIFF REQ NO Normal [facility] Comment on above: Performed By: #### C BC ####[facility] Ltluovjajv024[address] [place], [place] [address]Dr. Chrissy Frazier MCH (RBC) [Entitic mass] 28.5 pg Normal 25.9-34.0 [facility] Comment on above: Performed By: #### C BC ####[facility] Unqcespoli6843 [place] [address]Dr. Chrissy Frazier MCHC (RBC) [Mass/Vol] 32.7 g/dL Normal 29.9-35.2 [facility] Comment on above: Performed By: #### C BC ####[facility] Dfsnposvxp419[address] [place], [place] [address]Dr. Chrissy Frazier MCV (RBC) [Entitic vol] 87.1 fL Normal 80.0-94.0 [facility] Comment on above: Performed By: #### C BC ####[facility] Gbyeycoyax375[address] [place], [place] [address]Dr. Chrissy Frazier MONO # 0.9 103/ul Critically high 0.3-0.8 [facility] Comment on above: Performed By: #### C BC ####[facility] Xglyzpnmaj112[address] [place], [place] [address]Dr. Chrissy Frazier Monocytes/100 WBC (Bld) 8.6 % Normal 1.7-12.0 [facility] Comment on above: Performed By: #### C BC ####[facility] Ojtwzzhqkg4232[address] [place], [place] [address]Dr. Tishrowan Frazier NEUT # 7.8 103/ul Critically high 1.4-6.5 [facility] Comment on above: Performed By: #### C BC ####[facility] Wyltdkxwmv5201[address] [place], [place] [address]Dr. Chrissy Frazier Neutrophils/100 WBC (Bld) 72.2 % Normal 43.0-75.0 [facility] Comment on above: Performed By: #### C BC ####[facility] Bikbwztiey175[address] [place], [place] [address]Dr. Chrissy Frazier Platelet mean volume (Bld) [Entitic vol] 10.1 fL Normal 9.5-13.5 [facility] Comment on above: Performed By: #### C BC ####[facility] Cuqypdrnaj13[address] [place] [address]Dr. Chrissy Frazier PLT 329 103/ul Normal 150-450 [facility] Comment on above: Performed By: #### C BC ####[facility] Nhntqqemoa0450 [place] [address]Dr. Chrissy Frazier RBC 5.19 106/ul Normal 4.70-6.10 [facility] Comment on above: Performed By: #### C BC ####[facility] Rxtldhdncm2949 [place] [address]Dr. Chrissy Frazier WBC 10.8 103/ul Normal 4.0-11.0 [facility] Comment on above: Performed By: #### C BC ####[facility] Vvfyvywtpy49[address] [place] [address]Dr. Chrissy Frazier LIPASEon 03-29-2022 Lipase [Catalytic activity/Vol] 58.0 U/L Critically low 73.0-393.0 The [facility] Comment on above: Performed By: #### L TERRENCE VICTORIA ####[facility] Ddzktsqdfe9359 [place] [address]Dr. Chrissy Frazier NM HEPATOBILIARY SCAN W EFon 03-29-2022 NM HEPATOBILIARY SCAN W EF Normal [facility] PROF 14(COMP METB)on 022 Albumin [Mass/Vol] 3.8 g/dL Normal 3.4-5.0 [facility] Comment on above: Performed By: #### C MP ####[facility] Yexoycocxu5170 [place] [address]Dr. Chrissy Frazier Albumin/Globulin [Mass ratio] 1.0 {ratio} Normal [facility] Comment on above: Performed By: #### C MP ####[facility] Vtodehheft1361 [place] [address]Dr. Tishrowan Frazier ALP [Catalytic activity/Vol] 69 U/L Normal 46-116 [facility] Comment on above: Performed By: #### C MP ####[facility] Bfyefbczxb2114 [place] [address]Dr. Chrissy Frazier ALT [Catalytic activity/Vol] 117 U/L Critically high 16-63 [facility] Comment on above: Performed By: #### C MP ####[facility] Rlexweebul2872 [place] [address]Dr. Chrissy Frazier Anion gap [Moles/Vol] 16.7 mmol/L Normal [facility] Comment on above: Performed By: #### C MP ####[facility] Qfrfjopbsc3239 [place] [address]Dr. Chrissy Frazier AST [Catalytic activity/Vol] 77 U/L Critically high 15-37 [facility] Comment on above: Performed By: #### C MP ####[facility] Wrjfesgrgo7345 [place] [address]Dr. Chrissy Freddie Bilirubin [Mass/Vol] 1.5 mg/dL Critically high 0.2-1.0 [facility] Comment on above: Performed By: #### C MP ####[facility] Vllglenwsl0262 [place] [address]Dr. Tishrowan Freddie Calcium [Mass/Vol] 8.1 mg/dL Critically low 8.5-10.1 [facility] Comment on above: Performed By: #### C MP ####[facility] Vfgydphqdv1447 [place] [address]Dr. Chrissy Freddie Chloride [Moles/Vol] 101 mmol/L Normal 98-107 [facility] Comment on above: Performed By: #### C MP ####[facility] Gkncbnbotr7854 [place] [address]Dr. Chrissy Freddie CO2 [Moles/Vol] 24.5 mmol/L Normal 21.0-32.0 [facility] Comment on above: Performed By: #### C MP ####[facility] Vygwqqowpm3371 [place] [address]Dr. Chrissy Freddie Creatinine [Mass/Vol] 1.17 mg/dL Normal 0.70-1.30 [facility] Comment on above: Performed By: #### C MP ####[facility] Nhomjjzpuo5919 [place] [address]Dr. Chrissy Freddie EGFR-AF [place] >60 Normal >=60 [facility] Comment on above: Performed By: #### C MP ####[facility] Qltvnmqjea9494 [place] [address]Dr. Chrissy Frazier EGFR-NON AF [place] >60 Normal >=60 [facility] Comment on above: Performed By: #### C MP ####[facility] Lramfekyzy1522 [place] [address]Dr. Chrissy Frazier Globulin (S) [Mass/Vol] 3.9 g/dL Normal [facility] Comment on above: Performed By: #### C MP ####[facility] Rvbfgobplz8957 [place] [address]Dr. Chrissy Frazier Glucose [Mass/Vol] 104 mg/dL Normal 74-106 [facility] Comment on above: Performed By: #### C MP ####[facility] Wsuuutcvwk34[address] [place] [address]Dr. Chrissy Frazier Potassium [Moles/Vol] 3.2 mmol/L Critically low 3.5-5.1 [facility] Comment on above: Performed By: #### C MP ####[facility] Pwhtjrbebf32[address] [place] [address]Dr. Chrissy Frazier Protein [Mass/Vol] 7.7 g/dL Normal 6.4-8.2 [facility] Comment on above: Performed By: #### C MP ####[facility] Qvepyrvbes0372 [place] [address]Dr. Chrissy Frazier Sodium [Moles/Vol] 139 mmol/L Normal 136-145 [facility] Comment on above: Performed By: #### C MP ####[facility] Rqiynetztk[address] [place] [address]Dr. Chrissy Frazier Urea nitrogen [Mass/Vol] 11.0 mg/dL Normal 7.0-18.0 The [facility] Comment on above: Performed By: #### C MP ####[facility] Cfcnxvzipd1561 [place] [address]Dr. Chrissy Frazier Urea nitrogen/Creatinine [Mass ratio] 9.4 mg/mg Normal [facility] Comment on above: Performed By: #### C MP ####[facility] Pjmjnlyztc6906 [place] [address]Dr. Chrissy Frazier US SINGLE QUAD RT UPPERon US SINGLE QUAD RT UPPER Normal The [facility] AMMONIAon 03-28-2022 Ammonia (P) [Moles/Vol] 12 umol/L Normal 11-32 The [facility] Comment on above: Performed By: #### A MM ####[facility] Mwpntavswr0567 [place] [address]Dr. Chrissy Frazier CBC AUTO DIFFon 03-28-2022 BASO # 0.0 103/ul Normal 0.0-0.1 The [facility] Comment on above: Performed By: #### C BC ####[facility] Wrqsmxxnqg7[address] [place], [place] [address]Dr. Chrissy Frazier Basophils/100 WBC (Bld) 0.1 % Critically low 0.2-2.0 The [facility] Comment on above: Performed By: #### C BC ####[facility] Skzmrfhces[address] [place], [place] [address]Dr. Chrissy Frazier EO # 0.0 103/ul Normal 0.0-0.7 The [facility] Comment on above: Performed By: #### C BC ####[facility] Pfvflqwztu[address] [place], [place] [address]Dr. Chrissy Frazier Eosinophils/100 WBC (Bld) 0.0 % Critically low 0.9-7.0 The [facility] Comment on above: Performed By: #### C BC ####[facility] Hepctuitcw76[address] [place], [place] [address]Dr. Chrissy Frazier Erythrocyte distribution width (RBC) [Ratio] 14.0 % Normal 11.0-15.0 The [facility] Comment on above: Performed By: #### C BC ####[facility] Xnvmdtdccu22[address] [place], [place] [address]Dr. Chrissy Frazier Hematocrit (Bld) [Volume fraction] 44.2 % Normal 42.0-54.0 The [facility] Comment on above: Performed By: #### C BC ####[facility] Xdxsrvkytp115[address] [place], [place] [address]Dr. Chrissy Freddie Hemoglobin (Bld) [Mass/Vol] 14.7 g/dL Normal 14.0-18.0 The [facility] Comment on above: Performed By: #### C BC ####[facility] Mpyvdtrocq6341 [place] [address]Dr. Tishrowan Frazier IG # 0.10 10e3/ul Critically high 0.00-0.03 The [facility] Comment on above: Performed By: #### C BC ####[facility] Felcjkcxja0837 [place] [address]Dr. Chrissy Frazier IG % 0.5 % Normal 0.0-0.5 The [facility] Comment on above: Performed By: #### C BC ####[facility] Jedvsdezhi3216 [place] [address]Dr. Chrissy Frazier LYMPH # 2.6 103/ul Normal 1.2-3.8 The [facility] Comment on above: Performed By: #### C BC ####[facility] Pfuoizmbrh9198 [place] [address]Dr. Chrissy Frazier Lymphocytes/100 WBC (Bld) 13.8 % Critically low 20.5-60.0 The [facility] Comment on above: Performed By: #### C BC ####[facility] Fiacusshar7894 [place] [address]Dr. Tishrowan Frazier MANUAL DIFF REQ NO Normal [facility] Comment on above: Performed By: #### C BC ####[facility] Xnkkihdxgt5515 [place] [address]Dr. Chrissy Freddie MCH (RBC) [Entitic mass] 29.0 pg Normal 25.9-34.0 The [facility] Comment on above: Performed By: #### C BC ####[facility] Wzmmltgcoa2898 [place] [address]Dr. Chrissy Freddie MCHC (RBC) [Mass/Vol] 33.3 g/dL Normal 29.9-35.2 The [facility] Comment on above: Performed By: #### C BC ####[facility] Yxdiwcioqi5871 [place] [address]Dr. Chrissy Freddie MCV (RBC) [Entitic vol] 87.2 fL Normal 80.0-94.0 The [facility] Comment on above: Performed By: #### C BC ####[facility] Hizvkkzacc7565 [place] [address]Dr. Chrissy Frazier MONO # 1.1 103/ul Critically high 0.3-0.8 [facility] Comment on above: Performed By: #### C BC ####[facility] Rlyktogisf3190 [place] [address]Dr. Chrissy Frazier Monocytes/100 WBC (Bld) 5.9 % Normal 1.7-12.0 The [facility] Comment on above: Performed By: #### C BC ####[facility] Paurhorbzn439[address] [place], [place] [address]Dr. Chrissy Freddie NEUT # 15.1 103/ul Critically high 1.4-6.5 [facility] Comment on above: Performed By: #### C BC ####[facility] Hqbyzqdznc30[address] [place], [place] [address]Dr. Tishrowan Frazier Neutrophils/100 WBC (Bld) 79.7 % Critically high 43.0-75.0 The [facility] Comment on above: Performed By: #### C BC ####[facility] Mfzuggfisx9418 [place] [address]Dr. Chrissy Frazier Platelet mean volume (Bld) [Entitic vol] 10.3 fL Normal 9.5-13.5 The [facility] Comment on above: Performed By: #### C BC ####[facility] Wvctjgtapx57[address] [place], [place] [address]Dr. Chrissy Frazier PLT 358 103/ul Normal 150-450 The [facility] Comment on above: Performed By: #### C BC ####[facility] Hiciyvkjll[address] [place], [place] [address]Dr. Chrissy Frazier RBC 5.07 106/ul Normal 4.70-6.10 The [facility] Comment on above: Performed By: #### C BC ####[facility] Nhhgtgzjyi38[address] [place], [place] [address]Dr. Chrissy Frazier WBC 18.9 103/ul Critically high 4.0-11.0 [facility] Comment on above: Performed By: #### C BC ####[facility] Qgxpjelcee3108 [place] [address]DrNancy Frazier PROF 14(COMP METB)on 022 Albumin [Mass/Vol] 3.9 g/dL Normal 3.4-5.0 [facility] Comment on above: Performed By: #### C MP ####[facility] Pqsolwodxo9032 [place] [address]Dr. Chrissy Frazier Albumin/Globulin [Mass ratio] 1.1 {ratio} Normal [facility] Comment on above: Performed By: #### C MP ####[facility] Zycvlobplj4612 [place] [address]Dr. Chrissy Frazier ALP [Catalytic activity/Vol] 65 U/L Normal 46-116 The [facility] Comment on above: Performed By: #### C MP ####[facility] Davqytsmax709[address] [place], [place] [address]Dr. Chrissy Frazier ALT [Catalytic activity/Vol] 46 U/L Normal 16-63 The [facility] Comment on above: Performed By: #### C MP ####[facility] Kuxsemvmxy569[address] [place], [place] [address]Dr. Chrissy Frazier Anion gap [Moles/Vol] 13.2 mmol/L Normal [facility] Comment on above: Performed By: #### C MP ####[facility] Etljqiuwst32[address] [place], [place] [address]DrNancy Frazier AST [Catalytic activity/Vol] 33 U/L Normal 15-37 The [facility] Comment on above: Performed By: #### C MP ####[facility] Ydlhtblolt384[address] [place], [place] [address]Dr. Chrissy Frazier Bilirubin [Mass/Vol] 0.8 mg/dL Normal 0.2-1.0 The [facility] Comment on above: Performed By: #### C MP ####[facility] Orsaaophbm7968[address] [place], [place] [address]Dr. Chrissy Frazier Calcium [Mass/Vol] 8.1 mg/dL Critically low 8.5-10.1 [facility] Comment on above: Performed By: #### C MP ####[facility] Wfljylihrc4818 [place] [address]Dr. Chrissy Frazier Chloride [Moles/Vol] 102 mmol/L Normal 98-107 [facility] Comment on above: Performed By: #### C MP ####[facility] Lflwcrauzq6523 [place] [address]Dr. Chrissy Frazier CO2 [Moles/Vol] 24.0 mmol/L Normal 21.0-32.0 [facility] Comment on above: Performed By: #### C MP ####[facility] Aguqgjgezs72[address] [place], [place] [address]Dr. Chrissy Frazier Creatinine [Mass/Vol] 1.26 mg/dL Normal 0.70-1.30 [facility] Comment on above: Performed By: #### C MP ####[facility] Vftoxyoruf422[address] [place], [place] [address]Dr. Chrissy Frazier EGFR-AF [place] >60 Normal >=60 [facility] Comment on above: Performed By: #### C MP ####[facility] Vgehdhjged150[address] [place], [place] [address]Dr. Chrissy Frazier EGFR-NON AF [place] >60 Normal >=60 [facility] Comment on above: Performed By: #### C MP ####[facility] Vmpvppxiuf4340 [place] [address]Dr. Chrissy Frazier Globulin (S) [Mass/Vol] 3.7 g/dL Normal [facility] Comment on above: Performed By: #### C MP ####[facility] Iuyrpvnfvi5809 [place] [address]Dr. Chrissy Frazier Glucose [Mass/Vol] 119 mg/dL Critically high 74-106 T [facility] Comment on above: Performed By: #### C MP ####[facility] Qskqnxqyff1174 [place] [address]Dr. Chrissy Frazier Potassium [Moles/Vol] 3.2 mmol/L Critically low 3.5-5.1 The [facility] Comment on above: Performed By: #### C MP ####[facility] Vfolgajtos7965 [place] [address]Dr. Chrissy Frazier Protein [Mass/Vol] 7.6 g/dL Normal 6.4-8.2 [facility] Comment on above: Performed By: #### C MP ####[facility] Vzbpxljczn1169 [place] [address]Dr. Chrissy Frazier Sodium [Moles/Vol] 136 mmol/L Normal 136-145 [facility] Comment on above: Performed By: #### C MP ####[facility] Iqniqtijuf44[address] [place], [place] [address]Dr. Chrissy Frazier Urea nitrogen [Mass/Vol] 14.0 mg/dL Normal 7.0-18.0 The [facility] Comment on above: Performed By: #### C MP ####[facility] Sfukgleimg50[address] [place], [place] [address]Dr. Chrissy Frazier Urea nitrogen/Creatinine [Mass ratio] 11.1 mg/mg Normal [facility] Comment on above: Performed By: #### C MP ####[facility] Tpnqntoskc9825[address] [place], [place] [address]Dr. Chrissy Freddie CBC W MANUAL DIFFon 03-27-20 22 ATYPICAL LYMPH # Normal [facility] Comment on above: Performed By: #### C BCMAN ####[facility] Kxgkyzktug859[address] [place], [place] [address]Dr. Chrissy Frazier ATYPICAL LYMPH % Normal [facility] Comment on above: Performed By: #### C BCMAN ####[facility] Jwwgshdzta990[address] [place], [place] [address]Dr. Chrissy Frazier BAND # 0.0 103/ul Normal 0.0-0.3 The [facility] Comment on above: Performed By: #### C BCMAN ####[facility] Eltormkjjh1659 [place] [address]Dr. Chrissy Frazier BAND % 0 % Normal 0-5 The [facility] Comment on above: Performed By: #### C BCMAN ####[facility] Mvspizsdhh1052 [place] [address]Dr. Chrissy Frazier BASOM # 0.00 103/ul Normal 0.00-0.10 The [facility] Comment on above: Performed By: #### C BCMAN ####[facility] Dswvmziosk3477 [place] [address]Dr. Chrissy Frazier BASOM % 0.0 % Critically low 0.2-2.0 [facility] Comment on above: Performed By: #### C BCMAN ####[facility] Jkiscvxdon6096 [place] [address]Dr. Chrissy Frazier BLAST # Normal [facility] Comment on above: Performed By: #### C BCLEANDRO ####[facility] Zuodausmbq3377 [place] [address]Dr. Chrissy Frazier BLAST % Normal The [facility] Comment on above: Performed By: #### C BCLEANDRO ####[facility] Hynmgkfkdw95[address] [place], [place] [address]Dr. Chrissy Frazier CORRECTED WBC Normal 4.0-11.0 The [facility] Comment on above: Performed By: #### C BCLEANDRO ####[facility] Lietitcicl[address] [place], [place] [address]Dr. Chrissy Frazier EOS # 0.00 103/ul Normal 0.00-0.70 The [facility] Comment on above: Performed By: #### C BCLEANDRO ####[facility] Mrgiyfclao1401 [place] [address]Dr. Chrissy Frazier EOS% 0.0 % Critically low 0.9-7.0 [facility] Comment on above: Performed By: #### C BCLEANDRO ####[facility] Odkrsktchs5678 [place] [address]Dr. Chrissy Frazier HCT 47.3 % Normal 42.0-54.0 The [facility] Comment on above: Performed By: #### C BCLEANDRO ####[facility] Wqmbhsqwew[address] [place], [place] [address]Dr. Chrissy Frazier HGB 16.4 g/dl Normal 14.0-18.0 The [facility] Comment on above: Performed By: #### C ANTONETTE ####[facility] Ypgkwfjzgc9862 [place], [place] [address]Os. Chrissy Frazier LYMPHM # 2.31 103/ul Normal 1.20-3.80 The [facility] Comment on above: Performed By: #### Silverio WHITMAN ####[facility] Vosceezznb7508 [place], [place] [address]Ae. Chrissy Frazier LYMPHM% 9.0 % Critically low 20.5-60.0 [facility] Comment on above: Performed By: #### C ANTONETTE ####[facility] Ddltdrrdif2078 [place] [address]Dr. Chrissy Frazier MCH 28.6 pg Normal 25.9-34.0 [facility] Comment on above: Performed By: #### Silverio WHITMAN ####[facility] Gwywswpzin2230 [place] [address]Dr. Chrissy Frazier MCHC 34.7 g/dl Normal 29.9-35.2 The [facility] Comment on above: Performed By: #### Silverio WHITMAN ####[facility] Mwcylruvda0646 [place] [address]Dr. Chrissy Frazier MCV 82.4 fL Normal 80.0-94.0 The [facility] Comment on above: Performed By: #### Silverio WHITMAN ####[facility] Rwjvoquqqo5040 [place] [address]Dr. Chrissy Frazier METAMYELOCYTE # Normal [facility] Comment on above: Performed By: #### Silverio WHITMAN ####[facility] Gpolrgecpy4030 [place] [address]Dr. Chrissy Frazier METAMYELOCYTE % Normal [facility] Comment on above: Performed By: #### C ANTONETTE ####[facility] Wbntukdisy0490 [place] [address]Dr. Chrissy Frazier MONOM# 3.85 103/ul Critically high 0.30-0.80 [facility] Comment on above: Performed By: #### Silverio WHITMAN ####[facility] Bhpaqsnakl7825 [place] [address]Dr. Chrissy Frazier MONOM% 15.0 % Critically high 1.7-12.0 [facility] Comment on above: Performed By: #### C ANTONETTE ####[facility] Dyoxhvugrp2801 [place] [address]Dr. Chrissy Frazier MPV 10.6 fL Normal 9.5-13.5 The [facility] Comment on above: Performed By: #### C ANTONETTE ####[facility] Eialkpposw2452 [place] [address]Dr. Chrissy Frazier MYELOCYTE # Normal [facility] Comment on above: Performed By: #### C ANTONETTE ####[facility] Chyfjpfegx7350 [place] [address]Dr. Chrissy Frazier MYELOCYTE % Normal The [facility] Comment on above: Performed By: #### C ANTONETTE ####[facility] Udnuuciswq7370 [place] [address]Dr. Chrissy Frazier NRBC Normal [facility] Comment on above: Performed By: #### C ANTONETTE ####[facility] Anurkcgbls4984 [place] [address]Dr. Chrissy Frazier PLT 471 103/ul Critically high 150-450 [facility] Comment on above: Performed By: #### C ANTONETTE ####[facility] Neuqcnzcbe3708 [place] [address]Dr. Chrissy Frazier RBC 5.74 106/ul Normal 4.70-6.10 The [facility] Comment on above: Performed By: #### C ANTONETTE ####[facility] Kgqxhzygkj3647 [place] [address]Dr. Chrissy Frazier RDW 13.7 % Normal 11.0-15.0 The [facility] Comment on above: Performed By: #### C ANTONETTE ####[facility] Xknmkngugu0119 [place] [address]Dr. Chrissy Frazier SEG # 19.53 103/ul Critically high 1.40-6.50 [facility] Comment on above: Performed By: #### C ANTONETTE ####[facility] Afvunwcabh7540 [place] [address]Dr. Tishrowan Frazier SEG % 76.0 % Critically high 43.0-75.0 [facility] Comment on above: Performed By: #### C BCMAN ####[facility] Hpyepmxzgf3190 [place] [address]Dr. Tishrowan Frazier TOXIC GRANULATION SLIGHT Normal [facility] Comment on above: Result Comment: few vacoules Performed By: #### C BCLEANDRO ####[facility] Ynlfiggngr7362 [place] [address]Dr. Chrissy Frazier WBC 25.7 103/ul Critically high 4.0-11.0 [facility] Comment on above: Performed By: #### C ANTONETTE ####[facility] Svksktgowh4093 [place] [address]Dr. Chrissy Frazier LACTATE/LACTIC ACIDon 2021 Lactate [Moles/Vol] 2.4 mmol/L Critically high 0.4-1.9 [facility] Comment on above: Performed By: #### L ACT ####[facility] Bcbioquqsq6023 [place] [address]Dr. Chrissy Frazier Lactate [Moles/Vol] 3.5 mmol/L Critically high 0.4-1.9 The [facility] Comment on above: Performed By: #### L ACT ####[facility] Knnmfyutro7044 [place] [address]Dr. Chrissy Frazier LIPASEon 03-27-2022 Lipase [Catalytic activity/Vol] 43.0 U/L Critically low 73.0-393.0 The [facility] Comment on above: Performed By: #### C MP, LIPA ####[facility] Krjuevfwzk3137 [place] [address]Dr. Chrissy Frazier PROF 14(COMP METB)on 022 Albumin [Mass/Vol] 4.7 g/dL Normal 3.4-5.0 [facility] Comment on above: Performed By: #### C MP, LIPA ####[facility] Cgspnzafni1114 [place] [address]Dr. Chrissy Frazier Albumin/Globulin [Mass ratio] 1.1 {ratio} Normal [facility] Comment on above: Performed By: #### C MP, LIPA ####[facility] Rnzceeblza5117 [place] [address]Dr. Chrissy Frazier ALP [Catalytic activity/Vol] 69 U/L Normal 46-116 [facility] Comment on above: Performed By: #### C MP, LIPA ####[facility] Ovrpivwhmc1650 [place] [address]Dr. Chrissy Frazier ALT [Catalytic activity/Vol] 47 U/L Normal 16-63 [facility] Comment on above: Performed By: #### C MP, LIPA ####[facility] Znyirnmtsb07[address] [place], [place] [address]Dr. Chrissy Freddie Anion gap [Moles/Vol] 23.2 mmol/L Normal [facility] Comment on above: Performed By: #### C MP, LIPA ####[facility] Ntfrmlucbc756[address] [place], [place] [address]Dr. Chrissy Freddie AST [Catalytic activity/Vol] 23 U/L Normal 15-37 [facility] Comment on above: Performed By: #### C MP, LIPA ####[facility] Dyarfaayms337[address] [place], [place] [address]Dr. Chrissy Freddie Bilirubin [Mass/Vol] 0.7 mg/dL Normal 0.2-1.0 [facility] Comment on above: Performed By: #### C MP, LIPA ####[facility] Lvekfqvpyr9716[address] [place], [place] [address]Dr. Chrissy Freddie Calcium [Mass/Vol] 9.2 mg/dL Normal 8.5-10.1 [facility] Comment on above: Performed By: #### C MP, LIPA ####[facility] Ebvwgrgaws229[address] [place], [place] [address]Dr. Tishrowan Freddie Chloride [Moles/Vol] 97 mmol/L Critically low 98-107 [facility] Comment on above: Performed By: #### C MP, LIPA ####[facility] Jujqipmvtj3235[address] [place], [place] [address]Dr. Yirowan Frazier CO2 [Moles/Vol] 18.2 mmol/L Critically low 21.0-32.0 [facility] Comment on above: Performed By: #### C MP, LIPA ####[facility] Zlizsrgtyh1657 [place] [address]Dr. Chirssy Frazier Creatinine [Mass/Vol] 1.77 mg/dL Critically high 0.70-1.30 [facility] Comment on above: Performed By: #### C MP, LIPA ####[facility] Cnjlyrzcit7[address] [place], [place] [address]Dr. Chrissy Frazier EGFR-AF [place] 54 mL/min/1.73m2 Critically low >=60 [facility] Comment on above: Performed By: #### C MP, LIPA ####[facility] Xilpcbzmjs9[address] [place], [place] [address]Dr. Chrissy Frazier EGFR-NON AF [place] 45 mL/min/1.73m2 Critically low >=60 [facility] Comment on above: Performed By: #### C MP, LIPA ####[facility] Gyquvhxgvp09[address] [place], [place] [address]Dr. Chrissy Frazier Globulin (S) [Mass/Vol] 4.4 g/dL Normal [facility] Comment on above: Performed By: #### C MP, LIPA ####[facility] Rpgdogfjzk68[address] [place], [place] [address]Dr. Chrissy Frazier Glucose [Mass/Vol] 131 mg/dL Critically high 74-106 [facility] Comment on above: Performed By: #### C MP, LIPA ####[facility] [facility] [id number] [place], [place] [address]Dr. Chrissy Frazier Potassium [Moles/Vol] 3.4 mmol/L Critically low 3.5-5.1 [facility] Comment on above: Performed By: #### C MP, LIPA ####[facility] [address] [place], [place] [address]Dr. Chrissy Frazier Protein [Mass/Vol] 9.1 g/dL Critically high 6.4-8.2 [facility] Comment on above: Performed By: #### C MP, LIPA ####[facility] [address] [place], [place] [address]Rr. Chrissy Frazier Sodium [Moles/Vol] 135 mmol/L Critically low 136-145 [facility] Comment on above: Performed By: #### C MP, LIPA ####[facility] [address] [place], [place] [address]Wt. Chrissy Frazier Urea nitrogen [Mass/Vol] 19.0 mg/dL Critically high 7.0-18.0 [facility] Comment on above: Performed By: #### C MANA, LIPA ####[facility] [address] [place] [id number]. Chrissy Frazier Urea nitrogen/Creatinine [Mass ratio] 10.7 mg/mg Normal [facility] Comment on above: Performed By: #### C MANA, LIPA ####[facility] [address] [place] [id number]. Chrissy Frazier BMPon 11-03-2020 Anion gap [Moles/Vol] 14 mmol/L Normal 6-16 [facility] Comment on above: Performed By: #### 2 [id number], [id number], [id number] #### [facility] [address] [place] [address] Calcium [Mass/Vol] 9.0 mg/dL Normal 8.9-11.1 [facility] Comment on above: Performed By: #### 2 [id number], [id number], [id number] #### [facility] [address] [place] [address] Chloride [Moles/Vol] 104 mmol/L Normal 101-111 [facility] Comment on above: Performed By: #### 2 [id number], [id number], [id number] #### [facility] [address] [place] [address] CO2 [Moles/Vol] 21 mmol/L Normal 21-31 [facility] Comment on above: Performed By: #### 2 293144, [id number], [id number] #### [facility] [address] [place] [address] Creatinine [Mass/Vol] 1.3 mg/dL Normal 0.5-1.3 [facility] Comment on above: Performed By: #### 2 200920, [id number], [id number] #### [facility] [address] [place] [address] Glucose [Mass/Vol] 111 mg/dL Normal 55-199 [facility] Comment on above: Result Comment: If t his glucose result represents a fasting glucose, interpretation should refer to the following reference range: 55-99 mg/dL Performed By: #### 2 [id number], [id number], [id number] #### [facility] [address] [place] [address] Potassium [Moles/Vol] 2.9 mmol/L Low 3.5-5.3 [facility] Comment on above: Performed By: #### 2 892348, [id number], [id number] #### [facility] [address] [place] [address] Sodium [Moles/Vol] 136 mmol/L Normal 135-145 [facility] Comment on above: Performed By: #### 2 849998, 8003246, [id number] #### [facility] [address] [place] [address] Urea nitrogen [Mass/Vol] 14 mg/dL Normal 5-21 [facility] Comment on above: Performed By: #### 2 963651, [id number], [id number] #### [facility] [address] [place] [address] Urea nitrogen/Creatinine [Mass ratio] 11 No Units Normal 10-20 [facility] Comment on above: Performed By: #### 2 596091, [id number], [id number] #### [facility] [address] [place] [address] Lipase Levelon 11-03-2020 Lipase [Catalytic activity/Vol] 66 unit/L High 13-58 [facility] Comment on above: Performed By: #### 2 386691, [id number], [id number] #### [facility] [address] [place] [address] Physician Orderon 11-03-2020 Physician Order [id number] 3#1.00CD:127 Normal [facility] eGFRon 11-03-2020 GFR/1.73 sq M predicted among blacks MDRD (S/P/Bld) [Vol rate/Area] mL/min/{1.73_m2} Normal >=59 [facility] Comment on above: Order Comment: Order added by Discern Expert. Result Comment: eGFR is race adjusted. AA=. Performed By: #### 2 046807, 8103590, [id number] #### [facility] [address] [place] [address] GFR/1.73 sq M predicted among non-blacks MDRD (S/P/Bld) [Vol rate/Area] mL/min/{1.73_m2} Normal >=59 [facility] Comment on above: Order Comment: Order added by Discern Expert. Result Comment: Logging Shovel Operator lindsay kidney disease could be indicated at eGFR's of less than 60 mL/min/1.73m2. Kidney failure is indicated at less than 15 mL/min/1.73m2. Performed By: #### 2 859411, [id number], [id number] #### [facility] [address] [place] [address] Encounters Encounter Date Encounter Type Care Provider Facility Start: 05-16-2024 End: 05-16-2024 ambulatory TUNG NORTHEIM Not Available Start: 03-07-2024 End: 03-07-2024 ambulatory TUNG NORTHEIM Not Available Start: 03-30-2023 ambulatory Luis Angel Muniz cility:[facility] Start: 01-03-2023 End: 01-04-[address] [...] Date Payer Category Payer Self-pay 1990 Unknown [id number] 01.06. [id number] 1990 Unknown [id number] 1990 Unknown [id number] 1990 Unknown [id number] 1990 Unknown [id number] ..[id number] [id number] 1990 Unknown [id number] 2.16.84 0.1.895448.3.579.2.593 1990 Unknown [id number] 2.16.84 0.1.480695.3.579.2.593 1990 Unknown [id number] 2.16.84 0.1.572118.3.579.2.593 1990 Unknown [id number] 2.16.84 0.1.384771.3.579.2.593 1990 Unknown [id number] 2.16.84 0.1.854458.3.579.2.593 1990 Unknown [id number] 2.16.84 0.1.018940.3.579.2.593 1990 Unknown [id number] 2.16.84 0.1.719139.3.579.2.593 1990 Unknown [id number] 2.16.84 0.1.537883.3.579.2.593 1990 Unknown [id number] 2.16.84 0.1.972546.3.579.2.1259 1990 Unknown [id number] 2.16.84 0.1.529319.3.579.2.1259 1959 Private Health Insurance [id number] Unknown [id number] 2.16.8 [id number] Progress note 11-24-2022 Note Date & Type [...] report that his father had a fatal IL at the age of 54. Stress test [...] factor modification -Plan (more content not included)... [facility] Progress note 11-24-2022 Note Date [...] All other systems reviewed and are negative. [facility] Summary Purpose Family History No [...] section and content) DATE CREATED AUTHOR 11/04/2020 [facility] DATE CREATED AUTHOR AUTHOR'S ORGANIZ ATION 01/08/2023 [facility] DATE CREATED AUTHOR AUTHOR'S ORGANIZ ATION 02/07/2023 [facility] DATE CREATED AUTHOR AUTHOR'S ORGANIZ ATION 04/01/2023 [facility] DATE CREATED AUTHOR AUTHOR'S ORGANIZ ATION 05/17/2024 [facility] FOR RECORDS PERTAINING TO PATIENTS WHO [...] BE BASED ON THE PRIMARY CLINICAL RECORDS. [employer] provides no warranty or guarantee of the accuracy or completeness of information in this document.
[2024-07-23 02:27] VITALS: BP 148/86
--- NOTE | 2024-07-23 02:28 | XR_ITS ---
The [address] [address] Patient Name: PAULINA CHARLES MRN: [id number] date: 1990 Sex: M Assigned Patient Location: ER Current Patient Location: Accession/Order Number: [id number] Exam Date: 07/23/2024 03:00 Report Date: 07/23/2024 05:50 At the request of: JOSE RHOADES Procedure: XR acute abdomen series EXAM: XR acute abdomen series HISTORY: pain COMPARISON: Acute abdomen series dated 11/24/2023. TECHNIQUE: One view of the chest and 2 views of the abdomen were obtained. FINDINGS: The cardiac silhouette is normal in size. The lungs are clear. There is no significant pneumothorax or pleural effusion. No acute osseous abnormality is seen. There is a nonspecific bowel gas pattern without evidence of bowel obstruction. No intraperitoneal free air is seen. [place] screws are seen within the left glenoid. XR/XR acute abdomen series IMPRESSION: 1. No acute cardiopulmonary abnormality. 2. Nonspecific bowel gas pattern without evidence of bowel obstruction. Electronically authenticated by: Troy VALLECILLO Date: 07/23/2024 05:50
--- NOTE | 2024-07-23 02:29 | ECG_ITS ---
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
[2024-07-23] MEDS: 0.9 % SODIUM CHLORIDE 1,000 ML 999 ML IV (02:48)
[2024-07-23] MEDS: ONDANSETRON PF 4 MG/2 ML VIAL IV (02:49)
[2024-07-23] MEDS: DICYCLOMINE HCL 20 MG/2 ML VIAL IM (02:50)
[2024-07-23] MEDS: KETOROLAC TROMETHAMINE 30 MG/ML VIAL 15 MG IVP (02:50)
[2024-07-23 03:03] LABS: Basophils Percent Auto 0.3 % (0.2-2.0); Eosinophils Absolute Auto 0.1 10^3/uL (0.0-0.7); Eosinophils Percent Auto 0.4 % (0.9-7.0); Hemoglobin 16.4 g/dL (14.0-18.0); Immature Granulocytes Abs Auto 0.05 10^3/uL (0.00-0.03); Immature Granulocytes Pct Auto 0.3 % (0.0-0.5); Lymphocytes Percent Auto 26.1 % (20.5-60.0); Mean Corpuscular HGB Conc 34.9 g/dL (29.9-35.2); Mean Corpuscular Hemoglobin 28.8 pg (25.9-34.0); Mean Corpuscular Volume 82.5 fL (80.0-94.0); Mean Platelet Volume 10.9 fL (9.5-13.5); Monocytes Percent Auto 6.7 % (1.7-12.0); Neutrophils Absolute Auto 10.1 10^3/uL (1.4-6.5); Neutrophils Percent Auto 66.2 % (43.0-75.0); Platelet Count 467 10^3/uL (150-450); Red Cell Distribution Width 13.8 % (11.0-15.0); White Blood Count 15.2 10^3/uL (4.0-11.0)
[2024-07-23 03:24] LABS: Alanine Aminotransferase 42 U/L (16-63); Albumin Globulin Ratio 1.3; Albumin Level 4.5 g/dL (3.4-5.0); Alkaline Phosphatase 90 U/L (46-116); Aspartate Amino Transferase 19 U/L (15-37); BUN Creatinine Ratio 7.9; Calcium 9.3 mg/dL (8.5-10.1); Chloride 98 mmol/L (98-107); Estimated GFR (African America >60 (>=60); Estimated GFR (Non-African Ame 58 (>=60); Globulin 3.5 g/dL; Glucose 134 mg/dL (74-106); Potassium 3.1 mmol/L (3.5-5.1); Sodium 139 mmol/L (136-145); Troponin I High Sensitivity 16.8 pg/mL (4.0-76.1)
[2024-07-23 03:32] LABS: Anion Gap 19.4; Carbon Dioxide 24.7 mmol/L (21.0-32.0)
[2024-07-23] MEDS: ONDANSETRON 4 MG RAPDIS TABLET SL (04:44)
[2024-07-23] MEDS: DICYCLOMINE HCL 10 MG CAPSULE 20 MG PO (04:44)
--- NOTE | 2024-07-23 05:07 | ED_ITS ---
HPI HPI - General Adult General Chief complaint: Abdominal Pain Stated complaint: ABD PAIN Time Seen by Provider: 07/23/24 02:13 Source: patient Mode of arrival: walk-in Limitations: no limitations History of Present Illness HPI narrative: 34-year-old male to the emergency department with chief complaint of nausea, cramping abdominal pain. He reports he is currently in a flare of his can nabinoid hyperemesis syndrome. He denies any fever, sweats, chills. Is moving his bowels without difficulty. Therapy at home has been ineffective. Related Data Home Medications ?Medication ?Instructions ?Recorded ?Confirmed clonidine HCl 0.1 mg tablet 0.2 mg PO BID 11/17/23 07/17/24 hydroxyzine pamoate 25 mg capsule 25 mg PO QID PRN anxiety 11/17/23 07/17/24 lithium carbonate 300 mg capsule 300 mg PO BEDTIME 11/17/23 07/17/24 multivitamin (Daily Multi-Vitamin 1 tab PO DAILY 03/09/24 07/17/24 tablet) ibuprofen 800 mg tablet 800 mg PO Q8H PRN pain 07/16/24 07/17/24 propranolol 80 mg capsule,24 80 mg PO DAILY 07/17/24 07/17/24 hr,extended release (Inderal LA) Previous Rx's ?Medication ?Instructions ?Recorded dicyclomine 10 mg capsule 10 mg PO QID PRN abdominal pain 07/23/24 #12 caps ondansetron 4 mg disintegrating 4 mg PO Q8H PRN nausea and 07/23/24 tablet vomiting 4 days #16 tabs Allergies Allergy/AdvReac Type Severity Reaction Status Date / Time Penicillins Allergy Severe Unknown Verified 07/23/24 02:19 clarithromycin [From Biaxin] Allergy Unknown Verified 07/23/24 02:19 sulfamethoxazole Allergy unknown Verified 07/23/24 02:19 [From Bactrim] trimethoprim [From Bactrim] Allergy unknown Verified 07/23/24 02:19 Opioid HPI Opioid Management Most Recent Opioid Data: Last Pain Scale 0 07/18/24 07:56 Last Pain Assessment 07/18/24 08:10 Last ED Pain Assessment 07/23/24 03:59 Last ORT Total Score 16 07/17/24 08:28 Last ORT Risk Category High Risk 07/17/24 08:28 Ur Phencyclidine Scrn Negative (NEGATIVE) 07/21/24 04:15 Review of Systems ROS Status of ROS 10 or more systems reviewed and unremark able except as noted in history and below [facility] Medical History (Updated 07/23/24 @ 04:32 by Hugh Sumner MD) JCARLOS (acute kidney injury) ?N17.9 - Acute kidney failure, unspecified (ICD-10) Dehydration ?E86.0 - Dehydration (ICD-10) Bipolar disorder (manic depression) ?F31.9 - Bipolar disorder, unspecified (ICD-10) Acquired deformity of right foot ?M21.961 - Unspecified acquired deformity of right lower leg (ICD-10) Displaced fracture of navicular [scaphoid] of right foot, sequela ?S92.251S - Displaced fracture of navicular [scaphoid] of right foot, sequela (ICD-10) Sprain of tarsometatarsal ligament of right foot ?S93.621A - Sprain of tarsometatarsal ligament of right foot, initial encounter (ICD-10) Post-traumatic osteoarthritis, right ankle and foot ?M19.171 - Post-traumatic osteoarthritis, right ankle and foot (ICD-10) Hemangioma ?D18.00 - Hemangioma unspecified site (ICD-10) Ulnar nerve entrapment ?G56.20 - Lesion of ulnar nerve, unspecified upper limb (ICD-10) Bronchitis ?J40 - Bronchitis, not specified as acute or chronic (ICD-10) Foot pain ?M79.673 - Pain in unspecified foot (ICD-10) Esophagitis ?K20.90 - Esophagitis, unspecified without bleeding (ICD-10) Cyclical vomiting ?R11.15 - Cyclical vomiting syndrome unrelated to migraine (ICD-10) Sciatica ?M54.30 - Sciatica, unspecified side (ICD-10) Insomnia ?G47.00 - Insomnia, unspecified (ICD-10) PTSD (post-traumatic stress disorder) ?F43.10 - Post-traumatic stress disorder, unspecified (ICD-10) Panic attacks ?F41.0 - Panic disorder [episodic paroxysmal anxiety] (ICD-10) Depression ?F32.A - Depression, unspecified (ICD-10) Anxiety ?F41.9 - Anxiety disorder, unspecified (ICD-10) Electronic cigarette use ?Z78.9 - Other specified health status (ICD-10) COVID-19 ?U07.1 - COVID-19 (ICD-10) Sleep apnea ?G47.30 - Sleep apnea, unspecified (ICD-10) GERD (gastroesophageal reflux disease) ?K21.9 - Gastro-esophageal reflux disease without esophagitis (ICD-10) Prediabetes ?R73.03 - Prediabetes (ICD-10) Abdominal pain ?R10.9 - Unspecified abdominal pain (ICD-10) Nausea & vomiting ?R11.2 - Nausea with vomiting, unspecified (ICD-10) Surgical History H/O shoulder surgery ?Z98.890 - Other specified postprocedural states (ICD-10) H/O colonoscopy ?Z98.890 - Other specified postprocedural states (ICD-10) History of esophagogastroduodenoscopy (EGD) ?Z98.890 - Other specified postprocedural states (ICD-10) S/P cubital tunnel release ?Z98.890 - Other specified postprocedural states (ICD-10) History of surgical removal of skin lesion ?Z98.890 - Other specified postprocedural states (ICD-10) ?Z87.2 - Personal history of diseases of the skin and subcutaneous tissue (ICD-10) Family History Other Family history of diabetes mellitus Family history of heart disease Family history of hypertension Family history of myocardial infarction Social History Within the past year, how often did you have a drink containing alcohol: never Score interpretation: A score less than 4 is consistent with normal alcohol consumption. Smoking status: Current some day smoker Do you use any of these nicotine containing products: vaping products Non-prescribed substance use: cannabis (any form) Previous occupational history: [employer] Highest level of school completed/degree received: high school graduate Are you now , , , , never or living with a partner: In a typical week, how many times do you talk on the telephone with family, friends, or neighbors: 3 or more times per week How often do you get together with friends or relatives: 3 or more times per we ek How often do you attend congregational or mormonism services: never Do you belong to any clubs or organizations such as congregational groups unions, fra ternal or athletic groups, or school groups: no Total score: 2 Score interpretation: A score of greater than or equal to 2 indicates the lowest level of social isolation. Little interest or pleasure in doing things: several days Feeling down, depressed, or hopeless: more than half the days Feel stressed/tense/nervous/anxious/difficulty sleeping: to some extent Exam Narrative Exam Narrative: VITALS: I have reviewed the triage vital signs. GENERAL: Well developed, well appearing adult in no acute distress. NEURO: Alert and oriented. Moves all extremities. Face is symmetric and expressive. EYES: PERRL. No scleral icterus or conjunctival injection. No discharge. HENT: Normocephalic, atraumatic. Hearing is grossly intact. Nares grossly patent and without discharge. Mucous membranes moist. NECK: No JVD. Patient moves neck without restriction. CARDIO: Rhythm regular. Normal rate. No murmur, rub, or gallop. Pulses equal bilaterally in the upper and lower extremity. No lower extremity edema. PULM: Lungs clear to auscultation in all taylor. No wheezes, rales, or rhonchi. No conversational dyspnea. No splinting, stridor, or accessory muscle use. GI/: Abdomen is soft and non-tender. Normoactive bowel sounds. EXTREMITIES: Symmetric muscle bulk. No joint swelling. No clubbing, cyanosis, or deformity. SKIN: Warm and dry. Normal turgor. No rash or lesions appreciated. PSYCH: Mood, affect, and interaction is appropriate to the setting. Constitutional Vital Signs, click to edit/add: Last Vital Signs Temp 97.6 F 07/23/24 02:19 Pulse 98 H 07/23/24 02:19 Resp 18 07/23/24 02:19 BP 148/86 H 07/23/24 02:27 Pulse Ox 100 07/23/24 02:19 O2 Del Method Room Air 07/23/24 02:19 Course Vital Signs Vital signs: Vital Signs Temperature 97.6 F 07/23/24 02:19 Pulse Rate 98 H 07/23/24 02:19 Respiratory Rate 18 07/23/24 02:19 Blood Pressure 153/130 H 07/23/24 02:19 Pulse Oximetry 100 07/23/24 02:19 Oxygen Delivery Method Room Air 07/23/24 02:19 Temperature 97.6 F 07/23/24 02:19 Pulse Rate 98 H 07/23/24 02:19 Respiratory Rate 18 07/23/24 02:19 Blood Pressure 148/86 H 07/23/24 02:27 Pulse Oximetry 100 07/23/24 02:19 Oxygen Delivery Method Room Air 07/23/24 02:19 Medical Decision Making MDM Narrative Medical decision making narrative: Well-appearing 34-year-old male to the emergency department chief complaint of cramping abdominal pain and nausea that is persistent. Vital stable, the patient is afebrile. Basic labs are ordered. Bentyl, Toradol, Zofran, fluids for symptoms. Patient agrees with this plan. Abdominal series without acute findings. Troponin negative. Lab work otherwise unremarkable. Kidney function remains at baseline. Mild hypokalemia. Patient called me in the hallway and told me he is ready to go. He feels much improved. He is able to tolerate oral intake. Bentyl and Zofran were prescribed. He will follow-up with his PCP. Return precautions were discussed. All questions were answered. The patient was discharged home at his request. Medical Records Medical records reviewed: Yes I reviewed the patient's medical records Lab Data Lab results reviewed: Yes I reviewed the patient's lab results Labs: Lab Results 07/23/24 Range/Units 02:40 WBC 15.2 H (4.0-11.0) 10^3/uL RBC 5.70 (4.70-6.10) 10^6/uL Hgb 16.4 (14.0-18.0) g/dL Hct 47.0 (42.0-54.0) % MCV 82.5 (80.0-94.0) fL MCH 28.8 (25.9-34.0) pg MCHC 34.9 (29.9-35.2) g/dL RDW 13.8 (11.0-15.0) % Plt Count 467 H (150-450) 10^3/uL MPV 10.9 (9.5-13.5) fL Neut % (Auto) 66.2 (43.0-75.0) % Lymph % (Auto) 26.1 (20.5-60.0) % [place] % (Auto) 6.7 (1.7-12.0) % Eos % (Auto) 0.4 L (0.9-7.0) % Baso % (Auto) 0.3 (0.2-2.0) % Neut # (Auto) 10.1 H (1.4-6.5) 10^3/uL Lymph # (Auto) 4.0 H (1.2-3.8) 10^3/uL [place] # (Auto) 1.0 H (0.3-0.8) 10^3/uL Eos # (Auto) 0.1 (0.0-0.7) 10^3/uL Baso # (Auto) 0.0 (0.0-0.1) 10^3/uL Abs Immat Gran (auto) 0.05 H (0.00-0.03) 10^3/uL Imm/Tot Granulo (auto) 0.3 (0.0-0.5) % Sodium 139 (136-145) mmol/L Potassium 3.1 L (3.5-5.1) mmol/L Chloride 98 (98-107) mmol/L Carbon Dioxide 24.7 (21.0-32.0) mmol/L Anion Gap 19.4 BUN 11.0 (7.0-18.0) mg/dL Creatinine 1.39 H (0.70-1.30) mg/dL Est GFR ( Amer) >60 (>=60) Est GFR (Non-Af Amer) 58 L (>=60) BUN/Creatinine Ratio 7.9 Glucose 134 H (74-106) mg/dL Calcium 9.3 (8.5-10.1) mg/dL Total Bilirubin 1.0 (0.2-1.0) mg/dL AST 19 (15-37) U/L ALT 42 (16-63) U/L Alkaline Phosphatase 90 (46-116) U/L Troponin I High Sens 16.8 (4.0-76.1) pg/mL Total Protein 8.0 (6.4-8.2) g/dL Albumin 4.5 (3.4-5.0) g/dL Globulin 3.5 g/dL Albumin/Globulin Ratio 1.3 Lipase 30.0 (16.0-77.0) U/L Imaging Data Abdominal x-ray: Attestation: I personally reviewed and interpreted this imaging study as follows: (Nonobstructive bowel gas pattern. No free air.) ECG Data Attestation: I personally reviewed and interpreted this ECG as follows: (No STEMINormal QTc. Rate of 79.) Discharge Plan Discharge Stand Alone Forms: Work/School Release, Portal Instructions Chief Complaint: Abdominal Pain Clinical Impression: Cannabinoid hyperemesis syndrome Patient Disposition: Home, Self-Care Time of Disposition Decision: 04:32 Condition: Good Mode of Transportation: Private Vehicle Prescriptions / Home Meds: New ondansetron 4 mg tablet,disintegrating 4 mg PO Q8H PRN (Reason: nausea and vomiting) 4 Days Qty: 16 0RF dicyclomine 10 mg capsule 10 mg PO QID PRN (Reason: abdominal pain) Qty: 12 0RF No Action clonidine HCl 0.1 mg tablet 0.2 mg PO BID hydroxyzine pamoate 25 mg capsule 25 mg PO QID PRN (Reason: anxiety) lithium carbonate 300 mg capsule 300 mg PO BEDTIME multivitamin [Daily Multi-Vitamin] Tablet 1 tab PO DAILY propranolol [Inderal LA] 80 mg capsule,extended release 24 hr 80 mg PO DAILY ibuprofen 800 mg tablet 800 mg PO Q8H PRN (Reason: pain) Print Language: Romansh Instructions: Acute Nausea and Vomiting (ED), Acute Abdominal Pain (ED) Additional Instructions: Call the office of your primary care doctor to arrange for follow-up within the above-stated timeframe. Your ED visit was focused on your acute issue and does not replace primary care. You should review your labs, imaging, and diagnoses from this ED visit with your primary care physician. There may be non-emergent/ incidental findings that need further evaluation. You should review your vital signs including blood pressure with your PCP. If you were prescribed medications you should discuss possible side-effects and drug interactions with your pharmacist. Call 911 or go to the nearest Emergency Department if you develop any new or worsening symptoms. Seek immediate medical attention if you develop: worsening abdominal pain, new or worsening nausea, new or worsening vomiting, new or worsening diarrhea, chest pain, shortness of breath, pain with urination, problems urinating, fever, chills, weakness, or any new or worsening symptoms. Referrals: Janes Mario MD [Primary Care Provider] - 1 week Discharge Date/Time: 07/23/24 04:53
== END 2024-07-23 04:53 | disposition home or self-care (01) ==
PROVIDERS: Emergency Provider Student in an Organized Health Care Education/Training Program; PCP Family Medicine
DX: R11.2 Nausea with vomiting, unspecified (principal); R10.9 Unspecified abdominal pain; F17.290 Nicotine dependence, other tobacco product, uncomplicated; F12.90 Cannabis use, unspecified, uncomplicated
CPT/HCPCS: 36415; 74022; 80053; 83690; 84484; 85025; 93005; 96361; 96372; 96374; 96375; 99285; J0500; J1885; J2405; Q0162

== ENCOUNTER 2024-07-24 09:08 | Outpatient (OUT) | payer OTHER, SELFPAY ==
--- NOTE | 2024-07-24 09:24 | CT_ITS ---
[address] [address] Patient Name: PAULINA CHARLES MRN: [id number] date: 1990 Sex: M Assigned Patient Location: CT Current Patient Location: Accession/Order Number: [id number] Exam Date: 07/24/2024 09:20 Report Date: 07/25/2024 06:29 At the request of: SHALINI IVAN Procedure: CT foot RT wo con EXAMINATION: CT foot RT wo con HISTORY: Degenerative Joint Disease COMPARISON: XR foot right 07/10/2024, CT foot right 02/13/2024 TECHNIQUE: Multi-planar CT images were created without and/or with IV contrast according to examination type. Dose reduction techniques were achieved by using automated exposure control and/or adjustment of mA and/or kV according to patient size and/or use of iterative reconstruction technique. FINDINGS: BONES: Prior fusion of the navicular bone-medial cuneiform via 2 lag screws and a bone staple. The tip of one of the screws is at and may slightly penetrate the proximal articular surface of the navicular bone. The tip of the other lag screw and one of the legs of the bone staple penetrates the lateral wall of the medial cuneiform and may contact the middle cuneiform. SOFT TISSUES: No visible soft tissue swelling. EFFUSION: None visible. OTHER: Negative. CT/CT foot RT wo con IMPRESSION: 1. Prior mechanical fusion of the navicular bone-medial cuneiform without evidence of hardware failure or change in alignment. The tips of the screws and one of the legs of the bone staple may penetrate the cortical surface and possibly contribute patient's symptoms. Correlate with expected surgical findings. 2. No acute bone fracture or dislocation. Healing of previously seen fractures. Electronically authenticated by: KYREE DOHERTY Date: 07/25/2024 06:29
--- OUTSIDE RECORDS SUMMARY | 2024-07-24 09:28 | XMS_ITS | CCD ---
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 Operations Manager Name Role Phone RAQUEL BANKS Referring Unavailable [...] DR OLIVER Admitting Unavailable HOY ., DR OILVER Primary Care Unavailable HAY ., DR PIMENTEL [...] Hospital Repository (1 source) Clarithromycin Drug Allergy [facility] Repository (1 source) Sulfamethoxazole / Trimethoprim Drug Allergy 05-27-20 17 [facility] Repository (1 source) Sulfamethoxazole Drug Allergy 03-20-20 [facility] Repository (1 source) Trimethoprim Drug Allergy 03-20-20 [facility] Repository Problems Active Problems Problem Classification [...] Episodic Other aftercare (1 source) 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 Chrissy Frazier AMYLASEon 01-04-2023 Amylase [Catalytic activity/Vol] 34 U/L Normal 25-115 [facility] Comment on above: Performed By: #### A MY ####[facility] Mdjupgesxx9[address] [place], [place] [address]Dr. Chrissy Freddie CBC AUTO DIFFon 01-04-2023 BASO # 0.0 103/ul Normal 0.0-0.1 [facility] Comment on above: Performed By: #### C BC ####[facility] Caxhoyixit[address] [place], [place] [address]Dr. Chrissy Frazier Basophils/100 WBC (Bld) 0.1 % Critically low 0.2-2.0 [facility] Comment on above: Performed By: #### C BC ####[facility] Vexvwjcxap[address] [place], [place] [address]Dr. Tishrowan Frazier EO # 0.0 103/ul Normal 0.0-0.7 [facility] Comment on above: Performed By: #### C BC ####[facility] Ekuixpagiz[address] [place], [place] [address]Dr. Chrissy Frazier Eosinophils/100 WBC (Bld) 0.1 % Critically low 0.9-7.0 [facility] Comment on above: Performed By: #### C BC ####[facility] Tbtfnlxdkg7[address] [place], [place] [address]DrNancy Frazier Erythrocyte distribution width (RBC) [Ratio] 14.0 % Normal 11.0-15.0 [facility] Comment on above: Performed By: #### C BC ####[facility] Sbcwftcqpc9[address] [place], [place] [address]Dr. Chrissy Frazier Hematocrit (Bld) [Volume fraction] 40.4 % Critically low 42.0-54.0 [facility] Comment on above: Performed By: #### C BC ####[facility] Zeq[address]zxluaf[address] [place] [address]Dr. Chrissy Frazier Hemoglobin (Bld) [Mass/Vol] 13.8 g/dL Critically low 14.0-18.0 [facility] Comment on above: Performed By: #### C BC ####[facility] Ysozavgtmb[address] [place] [address]Dr. Chrissy Freddie IG # 0.05 10e3/ul Critically high 0.00-0.03 [facility] Comment on above: Performed By: #### C BC ####[facility] Hypmuklfoy[address] [place] [address]Dr. Tishrowan Frazier IG % 0.3 % Normal 0.0-0.5 [facility] Comment on above: Performed By: #### C BC ####[facility] Emicmnmami7[address] [place], [place] [address]Dr. Chrissy Frazier LYMPH # 1.7 103/ul Normal 1.2-3.8 [facility] Comment on above: Performed By: #### C BC ####[facility] Dgdosatbtk[address] [place] [address]Dr. Chrissy Freddie Lymphocytes/100 WBC (Bld) 11.9 % Critically low 20.5-60.0 [facility] Comment on above: Performed By: #### C BC ####[facility] Iljarsfewv[address] [place] [address]Dr. Chrissy Frazier MANUAL DIFF REQ NO Normal [facility] Comment on above: Performed By: #### C BC ####[facility] Abrdzuthfe[address] [place] [id number]. Chrsisy Freddie MCH (RBC) [Entitic mass] 29.3 pg Normal 25.9-34.0 [facility] Comment on above: Performed By: #### C BC ####[facility] Gnjlftvceg5143 [place] [id number]. Tishrowan Frazier MCHC (RBC) [Mass/Vol] 34.2 g/dL Normal 29.9-35.2 [facility] Comment on above: Performed By: #### C BC ####[facility] Dvnuqnvcsx5[address] [place] [phone]. Chrissy Frazier MCV (RBC) [Entitic vol] 85.8 fL Normal 80.0-94.0 [facility] Comment on above: Performed By: #### C BC ####[facility] Ipvcifcmcd07[address] [place] [phone]. Chrissy Freddie MONO # 0.6 103/ul Normal 0.3-0.8 [facility] Comment on above: Performed By: #### C BC ####[facility] Cvqwzkperi[address] [place] [address]Dr. Chrissy Freddie Monocytes/100 WBC (Bld) 4.2 % Normal 1.7-12.0 [facility] Comment on above: Performed By: #### C BC ####[facility] Wzstskcjrz65[address] [place], [place] [address]Dr. Chrissy Frazier NEUT # 12.0 103/ul Critically high 1.4-6.5 [facility] Comment on above: Performed By: #### C BC ####[facility] Msvchqcss[address] [place], [place] [address]Dr. Tishrowan Frazier Neutrophils/100 WBC (Bld) 83.4 % Critically high 43.0-75.0 [facility] Comment on above: Performed By: #### C BC ####[facility] Xjtiarpsai48[address] [place], [place] [address]Dr. Chrissy Freddie Platelet mean volume (Bld) [Entitic vol] 10.4 fL Normal 9.5-13.5 [facility] Comment on above: Performed By: #### C BC ####[facility] Mcquokamwa[address] [place], [place] [address]Dr. Chrissy Frazier PLT 313 103/ul Normal 150-450 [facility] Comment on above: Performed By: #### C BC ####[facility] Agymyjnkpz[address] [place] [phone]. Chrissy Frazier RBC 4.71 106/ul Normal 4.70-6.10 [facility] Comment on above: Performed By: #### C BC ####[facility] Tyktsvuapm029[address] [place] [phone]. Chrissy Frazier WBC 14.4 103/ul Critically high 4.0-11.0 [facility] Comment on above: Performed By: #### C BC ####[facility] Zlrgsifuqd07[address] [place] [phone]. Chrissy Frazier CULTURE URINEon 01-04-2023 CULTURE URINE Culture Observations: NO GROWTH. Normal [facility] Comment on above: Performed By: #### U RCX ####[facility] Vjbugkahmn[address] [place] [address]Dr. Chrissy Frazier DRUG SCREEN RAPID (URINE)on 01-04-2023 AMP Negative Normal NEGATIVE [facility] Comment on above: Performed By: #### D REYES, UAMIC ####[facility] Agvnirzcrd[address] [place] [address]Dr. Chrissy Frazier BAR Negative Normal NEGATIVE [facility] Comment on above: Performed By: #### D REYES, UAMIC ####[facility] Hvruuywkwz[address] [place] [address]Dr. Chrissy Frazier BUP Negative Normal NEGATIVE [facility] Comment on above: Performed By: #### D CHAYAD, UAMIC ####[facility] Lsfweyyefq45[address] [place] [address]Dr. Chrissy Frazier BZO Positive Abnormal NEGATIVE [facility] Comment on above: Performed By: #### D REYES, UAMIC ####[facility] Yyvejvtfgy15[address] [place] [address]Dr. Chrissy Frazier LAUREN Negative Normal NEGATIVE [facility] Comment on above: Performed By: #### D REYES, UAMIC ####[facility] Oengmsghxe50[address] [place] [address]Dr. Chrissy Frazier CUT-OFFS SEE BELOW Normal [facility] Comment on above: Result [...] Performed By: #### Amelie CHAMBERS, UAMIC ####[facility] Cqzwkrnypq[address] [place], [place] [address]Dr. [facility] DRUG CUT HEADER DRUG CLASS TEST SYSTEM CUT-OFF CONCENTRATIONS ARE FOLLOWS: Normal [facility] Comment on above: Performed By: #### Amelie CHAMBERS UAMIC ####[facility] Mjuafaddlk34[address] [place], [place] [address]Dr. Chrissy [facility] mAMP Negative Normal NEGATIVE [facility] Comment on above: Performed By: #### Amelie CHAMBERS UAMIC ####[facility] Goikbqdowx122[address] [place], [place] [address]Dr. [facility] MTD Negative Normal NEGATIVE [facility] Comment on above: Performed By: #### Amelie CHAMBERS, UAMIC ####[facility] Blnycukcjr59[address] [place], [place] [address]Dr. [facility] OPI Negative Normal NEGATIVE [facility] Comment on above: Performed By: #### Amelie CHAMBERS, UAMIC ####[facility] Aguacmavak7[address] [place], [place] [address]Dr. [facility] OXY Negative Normal NEGATIVE [facility] Comment on above: Performed By: #### Amelie CHAMBERS, UAMIC ####[facility] Rzajynbrzf39[address] [place], [place] [address]Dr. [facility] PCP Negative Normal NEGATIVE [facility] Comment on above: Performed By: #### Amelie CHAMBERS, UAMIC ####[facility] Lcjsljgfve8884[address] [place], [place] [address]Dr. [facility] PPX Negative Normal NEGATIVE [facility] Comment on above: Performed By: #### D REYES UAMIC ####[facility] Xpzvnperna[address] [place] [address]Dr. Chrissy Frazier TCA Positive Abnormal NEGATIVE [facility] Comment on above: Performed By: #### D REYES UAMIC ####[facility] Onckgvebga25[address] [place] [address]Dr. Chrissy Frazier THC Positive Abnormal NEGATIVE [facility] Comment on above: Performed By: #### D REYES UAMIC ####[facility] Woolaokqpe[address] [place] [address]Dr. Chrissy Frazier LIPASEon 01-04-2023 Lipase [Catalytic activity/Vol] 57.0 U/L Critically low 73.0-393.0 [facility] Comment on above: Performed By: #### L IPA ####[facility] Fmkkjhdaep80[address] [place], [place] [address]Dr. Chrissy Frazier PROF 14(COMP METB)on 023 Albumin [Mass/Vol] 3.6 g/dL Normal 3.4-5.0 [facility] Comment on above: Performed By: #### C MP ####[facility] Usnvayhafb[address]25[address] [place], [place] [address]Dr. Chrissy Frazier Albumin/Globulin [Mass ratio] 1.0 {ratio} Normal [facility] Comment on above: Performed By: #### C MP ####[facility] Cdminjftqn04[address] [place], [place] [address]Dr. Chrissy Frazier ALP [Catalytic activity/Vol] 67 U/L Normal 46-116 [facility] Comment on above: Performed By: #### C MP ####[facility] Fhqxrdkimo19[address] [place], [place] [address]Dr. Chrissy Frazier ALT [Catalytic activity/Vol] 26 U/L Normal 16-63 [facility] Comment on above: Performed By: #### C MP ####[facility] Kunfmxtlzj27[address] [place] [address]Dr. Chrissy Frazier Anion gap [Moles/Vol] 16.3 mmol/L Normal [facility] Comment on above: Performed By: #### C MP ####[facility] Oznyovltbt2274 [place] [id number]. Chrissy Frazier AST [Catalytic activity/Vol] 17 U/L Normal 15-37 [facility] Comment on above: Performed By: #### C MP ####[facility] Qhdqnvzrsk8002 [place] [id number]. Chrissy Frazier Bilirubin [Mass/Vol] 0.4 mg/dL Normal 0.2-1.0 [facility] Comment on above: Performed By: #### C MP ####[facility] Niygilpmii028[address] [place], [place] [address]Dr. Chrissy Frazier Calcium [Mass/Vol] 8.7 mg/dL Normal 8.5-10.1 [facility] Comment on above: Performed By: #### C MP ####[facility] Abjgsmsbqn01[address] [place], [place] [address]Dr. Chrissy Frazier Chloride [Moles/Vol] 106 mmol/L Normal 98-107 [facility] Comment on above: Performed By: #### C MP ####[facility] Ztawjmwnxf5[address] [place], [place] [address]Dr. Chrissy Frazier CO2 [Moles/Vol] 22.6 mmol/L Normal 21.0-32.0 [facility] Comment on above: Performed By: #### C MP ####[facility] Njknzeuepm206[address] [place], [place] [address]Dr. Chrissy Frazier Creatinine [Mass/Vol] 0.99 mg/dL Normal 0.70-1.30 [facility] Comment on above: Performed By: #### C MP ####[facility] Odkfcahsaq6[address] [place] [id number]. Chrissy Frazier EGFR-AF STATELESS >60 Normal >=60 [facility] Comment on above: Performed By: #### C MP ####[facility] Ekylooezpl[address] [place] [address]Dr. Chrissy Frazier EGFR-NON AF STATELESS >60 Normal >=60 [facility] Comment on above: Performed By: #### C MP ####[facility] Glcwhrnyxy11[address] [place] [address]Dr. Chrissy Frazier Globulin (S) [Mass/Vol] 3.6 g/dL Normal [facility] Comment on above: Performed By: #### C MP ####[facility] Vergejbowm7561 [place] [address]Dr. Chrissy Frazier Glucose [Mass/Vol] 138 mg/dL Critically high 74-106 [facility] Comment on above: Performed By: #### C MP ####[facility] Feakkfpwyn[address] [place] [address]Dr. Chrissy Frazier Potassium [Moles/Vol] 3.9 mmol/L Normal 3.5-5.1 [facility] Comment on above: Performed By: #### C MP ####[facility] Elymfyvdhd[address] [place], [place] [address]Dr. Chrissy Frazier Protein [Mass/Vol] 7.2 g/dL Normal 6.4-8.2 [facility] Comment on above: Performed By: #### C MP ####[facility] Lnturqnfsq647[address] [place], [place] [address]Dr. Chrissy Frazier Sodium [Moles/Vol] 141 mmol/L Normal 136-145 [facility] Comment on above: Performed By: #### C MP ####[facility] Ispvgklpbs0[address] [place], [place] [address]Dr. Chrissy Frazier Urea nitrogen [Mass/Vol] 10.0 mg/dL Normal 7.0-18.0 [facility] Comment on above: Performed By: #### C MP ####[facility] Qnfkcldwic8[address] [place], [place] [address]Dr. Chrissy Frazier Urea nitrogen/Creatinine [Mass ratio] 10.1 mg/mg Normal [facility] Comment on above: Performed By: #### C MP ####[facility] Jxwjlcxmnf0[address] [place], [place] [address]Dr. Chrissy Frazier UA RANDOM W/MICROSCOPICon BACTERIA TRACE Abnormal NONE SEEN [facility] Comment on above: Performed By: #### D REYES, UAMIC ####[facility] Yaexvczbgv25[address] [place] [address]Dr. Chrissy Frazier Bilirubin Ql (U) Negative Normal NEGATIVE [facility] Comment on above: Performed By: #### Amelie CHAMBERS, UAMIC ####[facility] Tpbuukxjcv6[address] [place], [place] [address]Dr. Chrissy Frazier CAST NONE SEEN Normal NONE SEEN [facility] Comment on above: Performed By: #### Amelie CHAMBERS, UAMIC ####[facility] Dyufchqexo5[address] [place], [place] [address]Dr. Chrissy Frazier Clarity (U) CLEAR Normal CLEAR [facility] Comment on above: Performed By: #### Amelie CHAMBERS, UAMIC ####[facility] Sunmsqsikz1115[address] [place], [place] [address]Dr. Chrissy Frazier Color (U) YELLOW Normal YELLOW [facility] Comment on above: Performed By: #### Amelie CHAMBERS, UAMIC ####[facility] Ggpqcqfpvy16[address] [place], [place] [address]Dr. Chrissy Frazier Crystals LM Nom (Urine sed) NONE SEEN Normal NONE SEEN [facility] Comment on above: Performed By: #### Amelie CHAMBERS, UAMIC ####[facility] Yqxgzidraf4156[address] [place], [place] [address]Dr. Chrissy Frazier Epithelial cells LM Ql (Urine sed) NONE SEEN Normal NONE SEEN /RARE [facility] Comment on above: Performed By: #### Amelie CHAMBERS, UAMIC ####[facility] Yfszyqdirc643[address] [place], [place] [address]Dr. Chrissy Frazier Glucose Ql (U) Negative Normal NEGATIVE [facility] Comment on above: Performed By: #### D REYES, UAMIC ####[facility] Qdzupjgbks5218[address] [place], [place] [address]Dr. Chrissy Frazier Hemoglobin Ql (U) Negative Normal NEGATIVE [facility] Comment on above: Performed By: #### Amelie CHAMBERS, UAMIC ####[facility] Pxtxhrlenf13[address] [place], [place] [address]Dr. Chrissy Frazier Ketones Ql (U) 15 mg/dl Abnormal NEGATIVE [facility] Comment on above: Performed By: #### Amelie CHAMBERS UAMIC ####[facility] Ksutfrhsfx34[address] [place] [address]Dr. Chrissy Frazier LEUKOCYTES Negative Normal NEGATIVE [facility] Comment on above: Performed By: #### Amelie CHAMBERS UAMIC ####[facility] Trumthpdml[address] [place] [address]Dr. Chrissy Frazier MUCOUS NONE SEEN Normal NONE SEEN [facility] Comment on above: Performed By: #### Amelie CHAMBERS UAMIC ####[facility] Toiwywslvp5[address] [place] [address]Dr. Chrissy Frazier Nitrite Ql (U) Negative Normal NEGATIVE [facility] Comment on above: Performed By: #### Amelie CHAMBERS UAMIC ####[facility] Vrqjxpluld67[address] [place] [address]Dr. Chrissy Frazier pH (U) 6.5 [pH] Normal 5-9 [facility] Comment on above: Performed By: #### Amelie CHAMBERS UAMIC ####[facility] Iqjmfhhnuz[address] [place], [place] [address]Dr. Chrissy Frazier RBC NONE SEEN Abnormal 0-2 [facility] Comment on above: Performed By: #### Amelie CHAMBERS UAMIC ####[facility] Xdcmwzcots47[address] [place], [place] [address]Dr. Chrissy Frazier SPEC GRAVITY 1.020 Normal 1.005-<=1.025 [facility] Comment on above: Performed By: #### Amelie CHAMBERS UAMIC ####[facility] Rcfptftfxx[address] [place], [place] [address]Dr. Chrissy Frazier UA PROTEIN Negative Normal NEGATIVE/ TRACE [facility] Comment on above: Performed By: #### Amelie CHAMBERS UAMIC ####[facility] Hjadhggorc[address] [place], [place] [address]Dr. Chrissy Frazier Urobilinogen Qn (U) 0.2 {Estrellita'U}/dL Normal 0.2 - 1. 0 [facility] Comment on above: Performed By: #### Amelie CHAMBERS UAMIC ####[facility] Lbeufhezwb[address] [place] [id number]. Chrissy Frazier WBC NONE SEEN Normal NONE SEEN [facility] Comment on above: Performed By: #### D REYES UAMIC ####[facility] Wckffkvfll5[address] [place] [id number]. Chrissy Frazier AMMONIAon 01-03-2023 Ammonia (P) [Moles/Vol] 17 umol/L Normal 11-32 [facility] Comment on above: Performed By: #### A MM ####[facility] Ohfjdqkgmc034[address] [place] [address]Dr. Chrissy Frazier AMYLASEon 01-03-2023 Amylase [Catalytic activity/Vol] 38 U/L Normal 25-115 [facility] Comment on above: Performed By: #### L IPA, TERRENCE, CMP, MG ####[facility] Tfrclcurmh[address] [place] [address]Dr. Chrissy Frazier CBC AUTO DIFFon 01-03-2023 BASO # 0.1 103/ul Normal 0.0-0.1 [facility] Comment on above: Performed By: #### C BC ####[facility] Qkukczqiej07[address] [place] [address]Dr. Chrissy Frazier Basophils/100 WBC (Bld) 0.4 % Normal 0.2-2.0 [facility] Comment on above: Performed By: #### C BC ####[facility] Sndsuxitod9[address] [place] [address]Dr. Chrissy Frazier EO # 0.1 103/ul Normal 0.0-0.7 [facility] Comment on above: Performed By: #### C BC ####[facility] Hpguzczwft53[address] [place] [address]Dr. Chrissy Frazier Eosinophils/100 WBC (Bld) 0.3 % Critically low 0.9-7.0 [facility] Comment on above: Performed By: #### C BC ####[facility] Xxkurarxzm4239 [place] [address]Dr. Chrissy Frazier Erythrocyte distribution width (RBC) [Ratio] 13.7 % Normal 11.0-15.0 [facility] Comment on above: Performed By: #### C BC ####[facility] Gyfrceyeak[address] [place] [address]Dr. Tishrowan Freddie Hematocrit (Bld) [Volume fraction] 46.1 % Normal 42.0-54.0 [facility] Comment on above: Performed By: #### C BC ####[facility] Eaifwyculx6448 [place] [address]Dr. Chrissy Frazier Hemoglobin (Bld) [Mass/Vol] 15.4 g/dL Normal 14.0-18.0 [facility] Comment on above: Performed By: #### C BC ####[facility] Uahdzxaibe[address] [place], [place] [address]Dr. Chrissy Frazier IG # 0.11 10e3/ul Critically high 0.00-0.03 [facility] Comment on above: Performed By: #### C BC ####[facility] Gbosurnahx[address] [place], [place] [address]Dr. Chrissy Frazier IG % 0.6 % Critically high 0.0-0.5 [facility] Comment on above: Performed By: #### C BC ####[facility] Zflecwfyuc[address] [place], [place] [address]Dr. Chrissy Frazier LYMPH # 2.5 103/ul Normal 1.2-3.8 [facility] Comment on above: Performed By: #### C BC ####[facility] Oadvwqqdik17[address] [place], [place] [address]DrNancy Frazier Lymphocytes/100 WBC (Bld) 13.9 % Critically low 20.5-60.0 [facility] Comment on above: Performed By: #### C BC ####[facility] Zoawnssbhq[address] [place], [place] [address]DrNancy Frazier MANUAL DIFF REQ NO Normal [facility] Comment on above: Performed By: #### C BC ####[facility] Fygxypqons[address] [place] [address]Dr. Chrissy Frazier MCH (RBC) [Entitic mass] 28.6 pg Normal 25.9-34.0 [facility] Comment on above: Performed By: #### C BC ####[facility] Yvfqhrvyax[address] [place] [address]Dr. Chrissy Frazier MCHC (RBC) [Mass/Vol] 33.4 g/dL Normal 29.9-35.2 [facility] Comment on above: Performed By: #### C BC ####[facility] [address] [place] [address]Dr. Chrissy Frazier MCV (RBC) [Entitic vol] 85.7 fL Normal 80.0-94.0 [facility] Comment on above: Performed By: #### C BC ####[facility] Uuhtkcuh[address] [place], [place] [address]DrNancy Frazier MONO # 0.7 103/ul Normal 0.3-0.8 [facility] Comment on above: Performed By: #### C BC ####[facility] Fmcrfpwott[address] [place], [place] [address]Dr. Chrissy Frazier Monocytes/100 WBC (Bld) 4.0 % Normal 1.7-12.0 [facility] Comment on above: Performed By: #### C BC ####[facility] Eekkpqoydd[address] [place], [place] [address]DrNancy Frazier NEUT # 14.3 103/ul Critically high 1.4-6.5 [facility] Comment on above: Performed By: #### C BC ####[facility] Qutpoxpndn[address] [place], [place] [address]Dr. Chrissy Frazier Neutrophils/100 WBC (Bld) 80.8 % Critically high 43.0-75.0 [facility] Comment on above: Performed By: #### C BC ####[facility] Apiobgbval[address] [place], [place] [address]DrNancy Frazier Platelet mean volume (Bld) [Entitic vol] 10.4 fL Normal 9.5-13.5 [facility] Comment on above: Performed By: #### C BC ####[facility] Ujasymlyqv20[address] [place], [place] [address]Dr. Chrissy Frazier PLT 437 103/ul Normal 150-450 [facility] Comment on above: Performed By: #### C BC ####[facility] Egqnocvuqm[address] [place] [address]Dr. Chrissy Frazier RBC 5.38 106/ul Normal 4.70-6.10 [facility] Comment on above: Performed By: #### C BC ####[facility] Nnaztsboqw3[address] [place] [address]Dr. Chrissy Frazier WBC 17.7 103/ul Critically high 4.0-11.0 [facility] Comment on above: Performed By: #### C BC ####[facility] Pjiwsifetv[address] [place] [address]Dr. Chrissy Frazier CULTURE BLOODon 01-03-2023 Microscopic examination of blood, culture Culture Observations: NO GROWTH AT 5 DAYS. Normal [facility] Comment on above: Performed By: #### B LDCX1 ####[facility] Fgzgafqxon6[address] [place], [place] [address]Dr. Chrissy Frazier Performed By: #### B LDCX2 ####[facility] Zusgjqzyud[address] [place] [address]Dr. Chrissy Frazier ECHOCARDIO M/2D COMPLETEon 0 01-03-2023 ECHOCARDIO M/2D COMPLETE Normal [facility] LACTATE/LACTIC ACIDon 2022 Lactate [Moles/Vol] 2.7 mmol/L Critically high 0.4-1.9 [facility] Comment on above: Performed By: #### L ACT ####[facility] Quefxrxhvp25[address] [place] [address]Dr. Chrissy Frazier Lactate [Moles/Vol] 6.3 mmol/L Critically high 0.4-1.9 [facility] Comment on above: Performed By: #### L ACT ####[facility] Xdqclidnso[address] [place] [address]Dr. Chrissy Frazier LIPASEon 01-03-2023 Lipase [Catalytic activity/Vol] 74.0 U/L Normal 73.0-393.0 [facility] Comment on above: Performed By: #### L IPA, TERRENCE, CMP, MG ####[facility] Inatsexijp[address] [place] [address]Dr. Chrissy Frazier MAGNESIUMon 01-03-2023 Magnesium [Mass/Vol] 1.6 mg/dL Critically low 1.8-2.4 [facility] Comment on above: Performed By: #### L IPA, TERRENCE, CMP, MG ####[facility] Vxejdkkoow[address] [place] [address]Dr. Chrissy Frazier PROF 14(COMP METB)on 023 Albumin [Mass/Vol] 4.3 g/dL Normal 3.4-5.0 [facility] Comment on above: Performed By: #### L IPA, TERRENCE, CMP, MG ####[facility] Zxhasxremd35[address] [place] [address]Dr. Chrissy Frazier Albumin/Globulin [Mass ratio] 1.1 {ratio} Normal [facility] Comment on above: Performed By: #### L IPA, TERRENCE, CMP, MG ####[facility] Ncxjstkocw2[address] [place] [address]Dr. Chrissy Frazier ALP [Catalytic activity/Vol] 87 U/L Normal 46-116 [facility] Comment on above: Performed By: #### L IPA, TERRENCE, CMP, MG ####[facility] Ecslgjhbam[address] [place] [address]Dr. Chrsisy Frazier ALT [Catalytic activity/Vol] 32 U/L Normal 16-63 [facility] Comment on above: Performed By: #### L IPA, TERRENCE, CMP, MG ####[facility] Rkeiysphtt[address] [place] [address]Dr. Chrissy Frazier Anion gap [Moles/Vol] 24.0 mmol/L Normal [facility] Comment on above: Performed By: #### L IPA, TERRENCE, CMP, MG ####[facility] Xibcozjxte[address] [place] [address]Dr. Chrissy Frazier AST [Catalytic activity/Vol] 22 U/L Normal 15-37 [facility] Comment on above: Performed By: #### L IPA, TERRENCE, CMP, MG ####[facility] Mvuerkbkvt0[address] [place] [address]Dr. Chrissy Frazier Bilirubin [Mass/Vol] 0.6 mg/dL Normal 0.2-1.0 [facility] Comment on above: Performed By: #### L IPA, TERRENCE, CMP, MG ####[facility] Gijkktweiu[address] [place] [address]Dr. Chrissy Frazier Calcium [Mass/Vol] 9.6 mg/dL Normal 8.5-10.1 [facility] Comment on above: Performed By: #### L IPA, TERRENCE, CMP, MG ####[facility] Btdvyngbez5[address] [place] [address]Dr. Chrissy Frazier Chloride [Moles/Vol] 103 mmol/L Normal 98-107 [facility] Comment on above: Performed By: #### L IPA, TERRENCE, CMP, MG ####[facility] Iyarsxfiym[address] [place], [place] [address]Dr. Chrissy Frazier CO2 [Moles/Vol] 16.7 mmol/L Critically low 21.0-32.0 [facility] Comment on above: Performed By: #### L IPA, TERRENCE, CMP, MG ####[facility] Gpmqnvridh64[address] [place], [place] [address]Dr. Chrissy Frazier Creatinine [Mass/Vol] 1.42 mg/dL Critically high 0.70-1.30 [facility] Comment on above: Performed By: #### L IPA, TERRENCE, CMP, MG ####[facility] Dgvzkevijk[address] [place] [address]Dr. Chrissy Frazier EGFR-AF STATELESS >60 Normal >=60 [facility] Comment on above: Performed By: #### L IPA, TERRENCE, CMP, MG ####[facility] Beogfanijn53[address] [place], [place] [address]Dr. Chrissy Frazier EGFR-NON AF STATELESS 58 mL/min/1.73m2 Critically low >=60 [facility] Comment on above: Performed By: #### L IPA, TERRENCE, CMP, MG ####[facility] Tvcqzheuxj77[address] [place] [address]Dr. Chrissy Frazier Globulin (S) [Mass/Vol] 4.0 g/dL Normal [facility] Comment on above: Performed By: #### L IPA, TERRENCE, CMP, MG ####[facility] Igivwaautz[address] [place] [address]Dr. Chrissy Frazier Glucose [Mass/Vol] 149 mg/dL Critically high 74-106 [facility] Comment on above: Performed By: #### L IPA, TERRENCE, CMP, MG ####[facility] Hjlbjkokiv4[address] [place] [address]Dr. Chrissy Frazier Potassium [Moles/Vol] 3.7 mmol/L Normal 3.5-5.1 [facility] Comment on above: Performed By: #### L IPA, TERRENCE, CMP, MG ####[facility] Dmwxhwoetp[address] [place] [address]Dr. Chrissy Frazier Protein [Mass/Vol] 8.3 g/dL Critically high 6.4-8.2 [facility] Comment on above: Performed By: #### L IPA, TERRENCE, CMP, MG ####[facility] Zpndhaespw24[address] [place] [address]Dr. Chrissy Frazier Sodium [Moles/Vol] 140 mmol/L Normal 136-145 [facility] Comment on above: Performed By: #### L IPA, TERRENCE, CMP, MG ####[facility] Wlvzdparmq9[address] [place] [address]Dr. Chrissy Frazier Urea nitrogen [Mass/Vol] 16.0 mg/dL Normal 7.0-18.0 [facility] Comment on above: Performed By: #### L IPA, TERRENCE, CMP, MG ####[facility] Fyhargomxw26[address] [place] [address]Dr. Chrissy Frazier Urea nitrogen/Creatinine [Mass ratio] 11.3 mg/mg Normal [facility] Comment on above: Performed By: #### L IPA, TERRENCE, CMP, MG ####[facility] Lhlzowuute[address] [place] [address]Dr. Chrissy Frazier SED RATE [facility] 2022 SED RATE 37 mm/hr Critically high <=15 [facility] Comment on above: Performed By: #### S EDR ####[facility] [address] [place], [place] [address]Ox. Chrissy Frazier XR ABD FLAT UP_PA Enoch 01-03 XR ABD FLAT UP_PA CH Normal [facility] CT HEART CORONARY ANGIOGRAMo n [...] [facility] Office Visiton 11-24-2022 Follow-up visit [id number] Paulina Montero 1990 M Date Provider Department Center 11/24/2022 3848-RAQUEL BANKS MANE [facility] Family History Problem Relation Age of Onset Coronary artery disease Father Heart attack Father 54 Family Status - Relation Status Age at Father Level of Service:18310 [facility] OFFICE/OUTPATIENT NEW MODERATE MDM 45-59 MINUTES Reason for Visit and Comments: abnormal stress test [Other] Normal [facility] CARDIAC STRESS TESTon 2021 CARDIAC STRESS TEST Normal [facility] AMYLASEon 10-24-2022 Amylase [Catalytic activity/Vol] 26 U/L Normal 25-115 [facility] Comment on above: Performed By: #### C MP, LIPA, TERRENCE ####[facility] [address]wwgqdtf5[address] [place], [place] [address]RxNancy Chrissy Frazier CBC AUTO DIFFon 10-24-2022 BASO # 0.0 103/ul Normal 0.0-0.1 [facility] Comment on above: Performed By: #### C BC ####[facility] Uvpvefxrzl[address] [place] [id number]. Chrissy Frazier Basophils/100 WBC (Bld) 0.2 % Normal 0.2-2.0 [facility] Comment on above: Performed By: #### C BC ####[facility] Lkwsyhigic98[address] [place] [id number]. Chrissy Frazier EO # 0.1 103/ul Normal 0.0-0.7 [facility] Comment on above: Performed By: #### C BC ####[facility] [address] [place], [place] [address]Dr. Chrissy Frazier Eosinophils/100 WBC (Bld) 0.4 % Critically low 0.9-7.0 [facility] Comment on above: Performed By: #### C BC ####[facility] Zkwqbljdpr[address] [place], [place] [address]Dr. Chrissy Frazier Erythrocyte distribution width (RBC) [Ratio] 14.6 % Normal 11.0-15.0 [facility] Comment on above: Performed By: #### C BC ####[facility] Slisalysrf64[address] [place] [address]Dr. Chrissy Frazier Hematocrit (Bld) [Volume fraction] 39.4 % Critically low 42.0-54.0 [facility] Comment on above: Performed By: #### C BC ####[facility] Vumupftnmc9[address] [place] [id number]. Chrissy Frazier Hemoglobin (Bld) [Mass/Vol] 13.2 g/dL Critically low 14.0-18.0 [facility] Comment on above: Performed By: #### C BC ####[facility] Mhxgtpvxyq24[address] [place] [address]Dr. Chrissy Frazier IG # 0.07 10e3/ul Critically high 0.00-0.03 [facility] Comment on above: Performed By: #### C BC ####[facility] Rybmvljyzc[address] [place], [place] [address]Dr. Chrissy Frazier IG % 0.5 % Normal 0.0-0.5 [facility] Comment on above: Performed By: #### C BC ####[facility] Jwlgzyubnc1853 [place] [id number]. Chrissy Frazier LYMPH # 3.7 103/ul Normal 1.2-3.8 [facility] Comment on above: Performed By: #### C BC ####[facility] Qnngrbnavn8889 [place], [place] [address]Hb. Chrissy Freddie Lymphocytes/100 WBC (Bld) 27.0 % Normal 20.5-60.0 [facility] Comment on above: Performed By: #### C BC ####[facility] Xzwgettatk3061 [place] [id number]. Tishrowan Frazier MANUAL DIFF REQ NO Normal [facility] Comment on above: Performed By: #### C BC ####[facility] Ndjgyomlls8948 [place] [phone]. Chrissy Freddie MCH (RBC) [Entitic mass] 27.8 pg Normal 25.9-34.0 [facility] Comment on above: Performed By: #### C BC ####[facility] Xegvkawqpd[address] [place] [id number]. Chrissy Frazier MCHC (RBC) [Mass/Vol] 33.5 g/dL Normal 29.9-35.2 [facility] Comment on above: Performed By: #### C BC ####[facility] Qgxbogctbj5035 [place] [id number]. Chrissy Frazier MCV (RBC) [Entitic vol] 82.9 fL Normal 80.0-94.0 [facility] Comment on above: Performed By: #### C BC ####[facility] Mnvzwxyzcc7872 [place] [phone]. Chrissy Freddie MONO # 1.2 103/ul Critically high 0.3-0.8 [facility] Comment on above: Performed By: #### C BC ####[facility] Kwzphwivpu0079 [place] [id number]. Tishrowan Frazier Monocytes/100 WBC (Bld) 8.4 % Normal 1.7-12.0 [facility] Comment on above: Performed By: #### C BC ####[facility] Xqnxrsvwpo2785 [place] [id number]. Chrissy Frazier NEUT # 8.8 103/ul Critically high 1.4-6.5 [facility] Comment on above: Performed By: #### C BC ####[facility] Pmndbdilqe9145 [place] [id number]. Chrissy Frazier Neutrophils/100 WBC (Bld) 63.5 % Normal 43.0-75.0 [facility] Comment on above: Performed By: #### C BC ####[facility] Ofapjydmbr4584 [place] [id number]. Tishrowan Frazier Platelet mean volume (Bld) [Entitic vol] 10.7 fL Normal 9.5-13.5 [facility] Comment on above: Performed By: #### C BC ####[facility] Rvcoaflcwd26[address] [place] [id number]. Chrissy Frazier PLT 291 103/ul Normal 150-450 [facility] Comment on above: Performed By: #### C BC ####[facility] Uxpogjhaue[address] [place], [place] [address]Dr. Chrissy Frazier RBC 4.75 106/ul Normal 4.70-6.10 [facility] Comment on above: Performed By: #### C BC ####[facility] Eyctjquopn8659 [place] [phone]. Chrissy Frazier WBC 13.8 103/ul Critically high 4.0-11.0 [facility] Comment on above: Performed By: #### C BC ####[facility] [address]tdyngjucg[address] [place], [place] [address]Dr. Chrissy Frazier LIPASEon 10-24-2022 Lipase [Catalytic activity/Vol] 44.0 U/L Critically low 73.0-393.0 [facility] Comment on above: Performed By: #### C MP, LIPA, TERRENCE ####[facility] Sjdmszqfbq4156 [place] [address]Dr. Chrissy Frazier PROF 14(COMP METB)on 022 Albumin [Mass/Vol] 3.4 g/dL Normal 3.4-5.0 [facility] Comment on above: Performed By: #### C OSWALD ADAIR, TERRENCE ####[facility] Xcouseycfm4472 [place] [address]Dr. Chrissy Frazier Albumin/Globulin [Mass ratio] 0.9 {ratio} Normal [facility] Comment on above: Performed By: #### C TESSA ADAIRA, TERRENCE ####[facility] Lolhzdyous[address] [place], [place] [address]Dr. Tishrowan Frazier ALP [Catalytic activity/Vol] 67 U/L Normal 46-116 [facility] Comment on above: Performed By: #### C OSWALD ADAIR, TERRENCE ####[facility] Sqszncoypp[address] [place], [place] [address]Dr. Chrissy Frazier ALT [Catalytic activity/Vol] 25 U/L Normal 16-63 [facility] Comment on above: Performed By: #### C OSWALD ADAIR, TERRENCE ####[facility] Zuefzflrhy[address] [place], [place] [address]Dr. Chrissy Frazier Anion gap [Moles/Vol] 14.5 mmol/L Normal [facility] Comment on above: Performed By: #### C OSWALD ADAIR, TERRENCE ####[facility] Qsiixyvlbr89[address] [place], [place] [address]Dr. Chrissy Frazier AST [Catalytic activity/Vol] 17 U/L Normal 15-37 [facility] Comment on above: Performed By: #### C OSWALD ADAIR, TERRENCE ####[facility] Cnwriaoslj[address] [place], [place] [address]Dr. Chrissy Frazier Bilirubin [Mass/Vol] 0.5 mg/dL Normal 0.2-1.0 [facility] Comment on above: Performed By: #### C OSWALD ADAIR, TERRENCE ####[facility] Cjxkpgnksn4[address] [place], [place] [address]Dr. Chrissy Frazier Calcium [Mass/Vol] 8.6 mg/dL Normal 8.5-10.1 The [facility] Comment on above: Performed By: #### C TESSA ADAIRA, TERRENCE ####[facility] Dvbzaaiwan39[address] [place] [address]Dr. Chrissy Frazier Chloride [Moles/Vol] 106 mmol/L Normal 98-107 [facility] Comment on above: Performed By: #### C OSWALD ADAIR, TERRENCE ####[facility] Ivvsnnvhdo5743 [place] [address]Dr. Chrissy Frazier CO2 [Moles/Vol] 22.8 mmol/L Normal 21.0-32.0 [facility] Comment on above: Performed By: #### C OSWALD ADAIR, TERRENCE ####[facility] Rnjalqqujk7996 [place] [address]Dr. Chrissy Frazier Creatinine [Mass/Vol] 0.98 mg/dL Normal 0.70-1.30 [facility] Comment on above: Performed By: #### C OSWALD ADAIR, TERRENCE ####[facility] Sfhxicyott[address] [place], [place] [address]Dr. Chrissy Frazier EGFR-AF STATELESS >60 Normal >=60 [facility] Comment on above: Performed By: #### C OSWALD ADAIR, TERRENCE ####[facility] Tnbdjxdypw[address] [place], [place] [address]Dr. Chrissy Frazier EGFR-NON AF STATELESS >60 Normal >=60 [facility] Comment on above: Performed By: #### C OSWALD ADAIR, TERRENCE ####[facility] Nzwetdtzav1781 [place] [address]Dr. Chrissy Frazier Globulin (S) [Mass/Vol] 3.7 g/dL Normal [facility] Comment on above: Performed By: #### C OSWALD ADAIR, TERRENCE ####[facility] Npzsbalmwh[address]3 [place] [address]Dr. Chrissy Frazier Glucose [Mass/Vol] 115 mg/dL Critically high 74-106 [facility] Comment on above: Performed By: #### C OSWALD ADAIR, TERRENCE ####[facility] Ydbeszpgzq34[address] [place], [place] [address]Dr. Chrissy Frazier Potassium [Moles/Vol] 3.3 mmol/L Critically low 3.5-5.1 [facility] Comment on above: Performed By: #### C MP, LIPA, TERRENCE ####[facility] Chsltcpibk5[address] [place], [place] [address]Dr. Chrissy Frazier Protein [Mass/Vol] 7.1 g/dL Normal 6.4-8.2 [facility] Comment on above: Performed By: #### C MP, LIPA, TERRENCE ####[facility] Ooznhyarxn[address] [place], [place] [address]Dr. Chrissy Frazier Sodium [Moles/Vol] 140 mmol/L Normal 136-145 [facility] Comment on above: Performed By: #### C MP, LIPA, TERRENCE ####[facility] Kbxtqkpqle[address] [place], [place] [address]Dr. Chrissy Frazier Urea nitrogen [Mass/Vol] 10.0 mg/dL Normal 7.0-18.0 [facility] Comment on above: Performed By: #### C MP, LIPA, TERRENCE ####[facility] Riiwkwgyoy[address] [place], [place] [address]Dr. Chrissy Frazier Urea nitrogen/Creatinine [Mass ratio] 10.2 mg/mg Normal [facility] Comment on above: Performed By: #### C MP, LIPA, TERRENCE ####[facility] Wiwugycfzd12[address] [place], [place] [address]Dr. Chrissy Frazier AMYLASEon 10-23-2022 Amylase [Catalytic activity/Vol] 31 U/L Normal 25-115 [facility] Comment on above: Performed By: #### C MP, LIPA, TERRENCE ####[facility] Oxzuekqmrr[address] [place], [place] [address]Dr. Chrissy Frazier CBC AUTO DIFFon 10-23-2022 BASO # 0.1 103/ul Normal 0.0-0.1 [facility] Comment on above: Performed By: #### C BC ####[facility] Vmfjnakuho04[address] [place], [place] [address]Dr. Chrissy Frazier Basophils/100 WBC (Bld) 0.3 % Normal 0.2-2.0 [facility] Comment on above: Performed By: #### C BC ####[facility] Solfppskmp[address] [place] [address]Dr. Chrissy Frazier EO # 0.1 103/ul Normal 0.0-0.7 [facility] Comment on above: Performed By: #### C BC ####[facility] Igjjqenqta8592 [place] [address]Dr. Chrissy Frazier Eosinophils/100 WBC (Bld) 0.3 % Critically low 0.9-7.0 [facility] Comment on above: Performed By: #### C BC ####[facility] Dmmdgvfiri[address] [place], [place] [address]Dr. Chrissy Frazier Erythrocyte distribution width (RBC) [Ratio] 14.5 % Normal 11.0-15.0 [facility] Comment on above: Performed By: #### C BC ####[facility] Fcyfxmqlhh[address] [place], [place] [address]Dr. Chrissy Frazier Hematocrit (Bld) [Volume fraction] 44.0 % Normal 42.0-54.0 [facility] Comment on above: Performed By: #### C BC ####[facility] Uccqrsrfbl[address] [place], [place] [address]Dr. Chrissy Frazier Hemoglobin (Bld) [Mass/Vol] 14.8 g/dL Normal 14.0-18.0 [facility] Comment on above: Performed By: #### C BC ####[facility] Yjgrykxnyl15[address] [place] [address]Dr. Chrissy Frazier IG # 0.09 10e3/ul Critically high 0.00-0.03 [facility] Comment on above: Performed By: #### C BC ####[facility] Vgdoibkfdz3525 [place] [address]Dr. Chrissy Frazier IG % 0.5 % Normal 0.0-0.5 [facility] Comment on above: Performed By: #### C BC ####[facility] Nryojfbiwe[address] [place], [place] [address]Dr. Chrissy Frazier LYMPH # 3.6 103/ul Normal 1.2-3.8 [facility] Comment on above: Performed By: #### C BC ####[facility] Pfimjtrxpy2499 [place] [id number]. Chrissy Freddie Lymphocytes/100 WBC (Bld) 19.4 % Critically low 20.5-60.0 [facility] Comment on above: Performed By: #### C BC ####[facility] Njhnkuujem4985 [place] [id number]. Tishrowan Frazier MANUAL DIFF REQ NO Normal [facility] Comment on above: Performed By: #### C BC ####[facility] Gcyltiyxmo6668 [place] [id number]. Chrissy Freddie MCH (RBC) [Entitic mass] 28.1 pg Normal 25.9-34.0 The [facility] Comment on above: Performed By: #### C BC ####[facility] Qzjkkarcab[address] [place] [id number]. Chrissy Freddie MCHC (RBC) [Mass/Vol] 33.6 g/dL Normal 29.9-35.2 [facility] Comment on above: Performed By: #### C BC ####[facility] Xjgmxumsst09[address] [place] [id number]. Chrissy Freddie MCV (RBC) [Entitic vol] 83.5 fL Normal 80.0-94.0 The [facility] Comment on above: Performed By: #### C BC ####[facility] Unevflpczd9605 [place] [id number]. Chrissy Frazier MONO # 0.9 103/ul Critically high 0.3-0.8 The [facility] Comment on above: Performed By: #### C BC ####[facility] Nikdwdxlbv1549 [place] [id number]. Tishrowan Frazier Monocytes/100 WBC (Bld) 4.9 % Normal 1.7-12.0 The [facility] Comment on above: Performed By: #### C BC ####[facility] Fmrgdeidct59[address] [place] [id number]. Chrissy Frazier NEUT # 13.9 103/ul Critically high 1.4-6.5 The [facility] Comment on above: Performed By: #### C BC ####[facility] Wrnvfozdmz8840 [place] [id number]. Chrissy Frazier Neutrophils/100 WBC (Bld) 74.6 % Normal 43.0-75.0 The [facility] Comment on above: Performed By: #### C BC ####[facility] Bjmitriays1753 [place] [phone]. Chrissy Frazier Platelet mean volume (Bld) [Entitic vol] 10.5 fL Normal 9.5-13.5 The [facility] Comment on above: Performed By: #### C BC ####[facility] Ipdhgistuc1218 [place] [phone]. Chrissy Frazier PLT 402 103/ul Normal 150-450 The [facility] Comment on above: Performed By: #### C BC ####[facility] Rtfyvhrkqm0020 [place] [phone]. Chrissy Frazier RBC 5.27 106/ul Normal 4.70-6.10 The [facility] Comment on above: Performed By: #### C BC ####[facility] Djtcfvgrrk0160 [place] [phone]. Chrissy Frazier WBC 18.6 103/ul Critically high 4.0-11.0 The [facility] Comment on above: Performed By: #### C BC ####[facility] Dblgatndls8878 [place] [phone]. Chrissy Frazier CULTURE BLOODon 10-23-2022 Microscopic examination of blood, culture Culture Observations: NO GROWTH AT 5 DAYS. Normal [facility] Comment on above: Performed By: #### B LDCX2 ####[facility] Uunrafmbsm4987 [place] [phone]. Chrissy Frazier Microscopic examination of blood, culture Culture Observations: NO GROWTH AT 5 DAYS. Normal [facility] Comment on above: Performed By: #### B LDCX1 ####[facility] Pmetrlgggp0884 [place] [phone]. Chrissy Frazier CULTURE URINEon 10-23-2022 CULTURE URINE Culture Observations: NO GROWTH. Normal [facility] Comment on above: Performed By: #### U RCX ####[facility] Igpjfdeneo27[address] [place] [address]Dr. Chrissy Frazier Covid-19 PCR (CVDTB)on SARS-CoV-2 (COVID-19) RNA RHIANNON+probe Ql (Unsp spec) Not detected Normal NOT DETECTED The [facility] Comment on above: Result [...] for this test is supported by the [place] of Health and Human Service's declaration that [...] used). Performed By: #### C VDTBH ####[facility] Jxulaxvbwu358[address] [place], [place] [address]Dr. Chrissy Frazier INFLUENZA A AND B AGon 10-23 INFLUANEGH SEE BELOW Normal The [facility] Comment on above: Result Comment: Nega tive for Flu A protein angiten. Infection due to Flu A cannot be ruled out. Flu A angiten in the sample may be below the detection limit of the test. Performed By: #### I NFLUAB ####[facility] Kxxtyagedu57[address] [place], [place] [address]Dr. Chrissy Frazier INFLUBNEGH SEE BELOW Normal The [facility] Comment on above: Result Comment: Nega tive for Flu B protein antigen. Infection due to Flu B cannot be ruled out. Flu B antigen in the sample may be below the detection limit of the test. Performed By: #### I NFLUAB ####[facility] Fogbmrhhiv[address] [place], [place] [address]Dr. Chrissy Frazier INFLUENZA A AG Negative Normal NEGATIVE SEE COMMENT The [facility] Comment on above: Performed By: #### I NFLUAB ####[facility] Xflhraexvh9066 [place] [address]Dr. Chrissy Frazier INFLUENZA B AG Negative Normal NEGATIVE SEE COMMENT The [facility] Comment on above: Performed By: #### I NFLUAB ####[facility] Riolutlufl20[address] [place], [place] [address]Dr. Chrissy Frazier INTERNAL CONTROLS Within Normal Limits Normal Wi thin Normal Limits The [facility] Comment on above: Performed By: #### I NFLUAB ####[facility] Ejjicobnhh7532[address] [place], [place] [address]Dr. Chrissy Frazier LACTATE/LACTIC ACIDon 2021 Lactate [Moles/Vol] 2.1 mmol/L Critically high 0.4-1.9 [facility] Comment on above: Performed By: #### L ACT ####[facility] Hktzohoara2[address] [place], [place] [address]Dr. Chrissy Frazier Lactate [Moles/Vol] 6.9 mmol/L Critically high 0.4-1.9 [facility] Comment on above: Performed By: #### L ACT ####[facility] Ttykkeqrvi808[address] [place], [place] [address]Dr. Chrissy Freddie LIPASEon 10-23-2022 Lipase [Catalytic activity/Vol] 72.0 U/L Critically low 73.0-393.0 [facility] Comment on above: Performed By: #### C OSWALD ADAIR AMY ####[facility] Grajmppuxj47[address] [place], [place] [address]Dr. Chrissy Frazier PROF 14(COMP METB)on 022 Albumin [Mass/Vol] 3.9 g/dL Normal 3.4-5.0 The [facility] Comment on above: Performed By: #### C OSWALD ADAIR AMY ####[facility] Upbqqvzweg07[address] [place], [place] [address]Dr. Chrissy Freddie Albumin/Globulin [Mass ratio] 0.9 {ratio} Normal The [facility] Comment on above: Performed By: #### C MP, LIPA, TERRENCE ####[facility] Fazplhkhlz29[address] [place] [address]Dr. Chrissy Frazier ALP [Catalytic activity/Vol] 82 U/L Normal 46-116 [facility] Comment on above: Performed By: #### C MP, LIPA, TERRENCE ####[facility] Cqcaquawkr88[address] [place] [address]Dr. Chrissy Frazier ALT [Catalytic activity/Vol] 25 U/L Normal 16-63 [facility] Comment on above: Performed By: #### C MP, LIPA, TERRENCE ####[facility] Kvgwpqjdni3[address] [place], [place] [address]Dr. Chrissy Frazier Anion gap [Moles/Vol] 18.1 mmol/L Normal [facility] Comment on above: Performed By: #### C MP, LIPA, TERRENCE ####[facility] Jeqdjzhtzj9[address] [place], [place] [address]Dr. Chrissy Frazier AST [Catalytic activity/Vol] 17 U/L Normal 15-37 [facility] Comment on above: Performed By: #### C MP, LIPA, TERRENCE ####[facility] Xdokshayiz18[address] [place], [place] [address]Dr. Chrissy Frazier Bilirubin [Mass/Vol] 0.5 mg/dL Normal 0.2-1.0 [facility] Comment on above: Performed By: #### C MP, LIPA, TERRENCE ####[facility] Yxntbdxrot70[address] [place], [place] [address]Dr. Chrissy Frazier Calcium [Mass/Vol] 9.1 mg/dL Normal 8.5-10.1 [facility] Comment on above: Performed By: #### C MP, LIPA, TERRENCE ####[facility] Ccghqxteae[address] [place], [place] [address]Dr. Chrissy Frazier Chloride [Moles/Vol] 101 mmol/L Normal 98-107 [facility] Comment on above: Performed By: #### C MP, LIPA, TERRENCE ####[facility] Lvtxbmzqoy[address] [place], [place] [address]Dr. Chrissy Frazier CO2 [Moles/Vol] 19.2 mmol/L Critically low 21.0-32.0 [facility] Comment on above: Performed By: #### C OSWALD ADAIR TERRENCE ####[facility] Mqplibezwz54[address] [place] [address]Dr. Chrissy Frazier Creatinine [Mass/Vol] 1.72 mg/dL Critically high 0.70-1.30 [facility] Comment on above: Performed By: #### C OSWALD ADAIR, TERRENCE ####[facility] Rgjropwagu7[address] [place] [address]Dr. Chrissy Frazier EGFR-AF STATELESS 56 mL/min/1.73m2 Critically low >=60 [facility] Comment on above: Performed By: #### C OSWALD ADAIR, TERRENCE ####[facility] Rivgakiann[address] [place] [address]Dr. Chrissy Frazier EGFR-NON AF STATELESS 46 mL/min/1.73m2 Critically low >=60 [facility] Comment on above: Performed By: #### C OSWALD ADAIR, TERRENCE ####[facility] Dhndzmcvue[address] [place], [place] [address]Dr. Chrissy Frazier Globulin (S) [Mass/Vol] 4.2 g/dL Normal [facility] Comment on above: Performed By: #### C OSWALD ADAIR, TERRENCE ####[facility] Viwbxjgbdy5[address] [place] [address]Dr. Chrissy Frazier Glucose [Mass/Vol] 126 mg/dL Critically high 74-106 [facility] Comment on above: Performed By: #### C OSWALD ADAIR, TERRENCE ####[facility] Prilvgoziv8[address] [place] [address]Dr. Chrissy Frazier Potassium [Moles/Vol] 3.3 mmol/L Critically low 3.5-5.1 [facility] Comment on above: Performed By: #### C TESSA ADAIRA, TERRENCE ####[facility] Mpbmtrobhz26[address] [place] [address]Dr. Chrissy Frazier Protein [Mass/Vol] 8.1 g/dL Normal 6.4-8.2 [facility] Comment on above: Performed By: #### C OSWALD ADAIR, TERRENCE ####[facility] Egsntafuqw[address] [place] [address]Dr. Chrissy Frazier Sodium [Moles/Vol] 135 mmol/L Critically low 136-145 Th e [facility] Comment on above: Performed By: #### C TESSA ADAIRA, TERRENCE ####[facility] Yydvqvtqei8[address] [place] [address]Dr. Chrissy Frazier Urea nitrogen [Mass/Vol] 13.0 mg/dL Normal 7.0-18.0 [facility] Comment on above: Performed By: #### C OSWALD ADAIR, TERRENCE ####[facility] Zwposnnmlu57[address] [place], [place] [address]Dr. Chrissy Frazier Urea nitrogen/Creatinine [Mass ratio] 7.6 mg/mg Normal [facility] Comment on above: Performed By: #### C OSWALD ADAIR, TERRENCE ####[facility] Jsmtgrfpjq[address] [place], [place] [address]Dr. Chrissy Frazier UA RANDOM W/MICROSCOPICon BACTERIA NONE SEEN Normal NONE SEEN [facility] Comment on above: Performed By: #### U AMIC ####[facility] Ahqiqexaop4[address] [place], [place] [address]Dr. Chrissy Frazier Bilirubin Ql (U) Negative Normal NEGATIVE The [facility] Comment on above: Performed By: #### U AMIC ####[facility] Hkwxjdlzjw[address] [place], [place] [address]Dr. Chrissy Frazier CAST NONE SEEN Normal NONE SEEN [facility] Comment on above: Performed By: #### U AMIC ####[facility] Fquaagnenk79[address] [place], [place] [address]Dr. Chrissy Frazier Clarity (U) CLEAR Normal CLEAR [facility] Comment on above: Performed By: #### U AMIC ####[facility] Yllhzqfsxt30[address] [place] [address]Dr. Chrissy Frazier Color (U) LT. YELLOW Normal YELLOW [facility] Comment on above: Performed By: #### U AMIC ####[facility] Rxvhauzsuw5024 [place] [address]Dr. Chrissy Frazier Crystals LM Nom (Urine sed) NONE SEEN Normal NONE SEEN The [facility] Comment on above: Performed By: #### U AMIC ####[facility] Pugyywawhe84[address] [place], [place] [address]Dr. Chrissy Frazier Epithelial cells LM Ql (Urine sed) FEW Abnormal NONE SEEN /RARE The [facility] Comment on above: Performed By: #### U AMIC ####[facility] Unpjmmxnap[address] [place], [place] [address]Dr. Chrissy Frazier Glucose Ql (U) Negative Normal NEGATIVE [facility] Comment on above: Performed By: #### U AMIC ####[facility] Wnatwunbkt8394[address] [place], [place] [address]Dr. Chrissy Frazier Hemoglobin Ql (U) Negative Normal NEGATIVE The [facility] Comment on above: Performed By: #### U AMIC ####[facility] Xlzkodijvy[address] [place], [place] [address]Dr. Chrissy Frazier Ketones Ql (U) 15 mg/dl Abnormal NEGATIVE The [facility] Comment on above: Performed By: #### U AMIC ####[facility] Vpldspwmke15[address] [place], [place] [address]Dr. Chrissy Frazier LEUKOCYTES Negative Normal NEGATIVE The [facility] Comment on above: Performed By: #### U AMIC ####[facility] Iweahchsek45[address] [place], [place] [address]Dr. Chrissy Frazier MUCOUS NONE SEEN Normal NONE SEEN The [facility] Comment on above: Performed By: #### U AMIC ####[facility] Scgsbutgta1799[address] [place], [place] [address]Dr. Chrissy Frazier Nitrite Ql (U) Negative Normal NEGATIVE The [facility] Comment on above: Performed By: #### U AMIC ####[facility] Xiugbkpmhq906[address] [place], [place] [address]Dr. Chrissy Frazier pH (U) 6.0 [pH] Normal 5-9 The [facility] Comment on above: Performed By: #### U AMIC ####[facility] Fycvirgnpo00[address] [place], [place] [address]Dr. Chrissy Frazier RBC 0-2 Normal 0-2 The [facility] Comment on above: Performed By: #### U AMIC ####[facility] Ecpwbegknm6[address] [place] [address]Dr. Chrissy Frazier SPEC GRAVITY 1.010 Normal 1.005-<=1.025 [facility] Comment on above: Performed By: #### U AMIC ####[facility] Arewxdozqa73[address] [place] [address]Dr. Chrissy Freddie UA PROTEIN Negative Normal NEGATIVE/ TRACE [facility] Comment on above: Performed By: #### U AMIC ####[facility] Nzetlmbuta0547 [place] [address]Dr. Chrissy Freddie Urobilinogen Qn (U) 0.2 {Estrellita'U}/dL Normal 0.2 - 1. 0 The [facility] Comment on above: Performed By: #### U AMIC ####[facility] Ineatgmskz1475[address] [place], [place] [address]Dr. Chrissy Freddie WBC NONE SEEN Normal NONE SEEN The [facility] Comment on above: Performed By: #### U AMIC ####[facility] Iamikwlguq5[address] [place], [place] [address]Dr. Chrissy Freddie AMYLASEon 10-22-2022 Amylase [Catalytic activity/Vol] 28 U/L Normal 25-115 The [facility] Comment on above: Performed By: #### L IPA, CMP, TERRENCE ####[facility] Fjislhoqix45[address] [place], [place] [address]Dr. Chrissy Freddie CBC AUTO DIFFon 10-22-2022 BASO # 0.0 103/ul Normal 0.0-0.1 The [facility] Comment on above: Performed By: #### C BC ####[facility] Ltbrorjjfq775[address] [place], [place] [address]Dr. Tishrowan Frazier Basophils/100 WBC (Bld) 0.2 % Normal 0.2-2.0 The [facility] Comment on above: Performed By: #### C BC ####[facility] Qvkaomgolu200[address] [place], [place] [address]Dr. Chrissy Frazier EO # 0.0 103/ul Normal 0.0-0.7 The [facility] Comment on above: Performed By: #### C BC ####[facility] Vhqgnivnkt7038 [place] [address]Dr. Chrissy Frazier Eosinophils/100 WBC (Bld) 0.1 % Critically low 0.9-7.0 [facility] Comment on above: Performed By: #### C BC ####[facility] Whbmblkopj1142 [place] [address]Dr. Chrissy Frazier Erythrocyte distribution width (RBC) [Ratio] 14.4 % Normal 11.0-15.0 [facility] Comment on above: Performed By: #### C BC ####[facility] Jpmxcsjcri574[address] [place], [place] [address]Dr. Chrissy Frazier Hematocrit (Bld) [Volume fraction] 45.2 % Normal 42.0-54.0 [facility] Comment on above: Performed By: #### C BC ####[facility] Dukmnrovjl069[address] [place], [place] [address]Dr. Chrissy Frazier Hemoglobin (Bld) [Mass/Vol] 15.4 g/dL Normal 14.0-18.0 [facility] Comment on above: Performed By: #### C BC ####[facility] Zkhhpktuwa3[address] [place], [place] [address]Dr. Chrissy Frazier IG # 0.07 10e3/ul Critically high 0.00-0.03 [facility] Comment on above: Performed By: #### C BC ####[facility] Rozqgmiamu[address] [place] [address]Dr. Chrissy Frazier IG % 0.4 % Normal 0.0-0.5 [facility] Comment on above: Performed By: #### C BC ####[facility] Frjrfviyad525[address] [place], [place] [address]Dr. Chrissy Frazier LYMPH # 2.0 103/ul Normal 1.2-3.8 [facility] Comment on above: Performed By: #### C BC ####[facility] Ioncclkyes5698[address] [place], [place] [address]Dr. Chrissy Frazier Lymphocytes/100 WBC (Bld) 12.2 % Critically low 20.5-60.0 The [facility] Comment on above: Performed By: #### C BC ####[facility] Hgkznkyyne2160 [place] [address]DrNancy Frazier MANUAL DIFF REQ NO Normal [facility] Comment on above: Performed By: #### C BC ####[facility] Mcncizycwu5[address] [place] [address]Dr. Chrissy Frazier MCH (RBC) [Entitic mass] 28.3 pg Normal 25.9-34.0 [facility] Comment on above: Performed By: #### C BC ####[facility] Cenvnwxboh8039[address] [place], [place] [address]Dr. Chrissy Frazier MCHC (RBC) [Mass/Vol] 34.1 g/dL Normal 29.9-35.2 [facility] Comment on above: Performed By: #### C BC ####[facility] Rdiutwwwqw6320[address] [place], [place] [address]Dr. Chrissy Frazier MCV (RBC) [Entitic vol] 82.9 fL Normal 80.0-94.0 [facility] Comment on above: Performed By: #### C BC ####[facility] Oxqyzbphok07[address] [place], [place] [address]Dr. Chrissy Frazier MONO # 0.3 103/ul Normal 0.3-0.8 [facility] Comment on above: Performed By: #### C BC ####[facility] Dpmfbphkzr639[address] [place], [place] [address]Dr. Chrissy Frazier Monocytes/100 WBC (Bld) 2.0 % Normal 1.7-12.0 [facility] Comment on above: Performed By: #### C BC ####[facility] Iuwlttnxcb764[address] [place], [place] [address]DrNancy Frazier NEUT # 14.0 103/ul Critically high 1.4-6.5 [facility] Comment on above: Performed By: #### C BC ####[facility] Iaarbunsrr2313[address] [place], [place] [address]Dr. Chrissy Frazier Neutrophils/100 WBC (Bld) 85.1 % Critically high 43.0-75.0 [facility] Comment on above: Performed By: #### C BC ####[facility] Yanpjxppqv29[address] [place] [address]Dr. Chrissy Frazier Platelet mean volume (Bld) [Entitic vol] 10.6 fL Normal 9.5-13.5 [facility] Comment on above: Performed By: #### C BC ####[facility] Lwvphjimqe8[address] [place] [address]Dr. Chrissy Frazier PLT 411 103/ul Normal 150-450 [facility] Comment on above: Performed By: #### C BC ####[facility] Ukxhhenyft[address] [place] [address]Dr. Tishrowan Frazier RBC 5.45 106/ul Normal 4.70-6.10 [facility] Comment on above: Performed By: #### C BC ####[facility] Bjikpfulbf40[address] [place], [place] [address]Dr. Chrissy Frazier WBC 16.5 103/ul Critically high 4.0-11.0 [facility] Comment on above: Performed By: #### C BC ####[facility] Vzqilspase50[address] [place], [place] [address]Dr. Chrissy Freddie LIPASEon 10-22-2022 Lipase [Catalytic activity/Vol] 57.0 U/L Critically low 73.0-393.0 [facility] Comment on above: Performed By: #### L JULIEN CMP, TERRENCE ####[facility] Ruwfxukibh[address] [place] [address]Dr. Chrissy Frazier PROF 14(COMP METB)on 022 Albumin [Mass/Vol] 4.2 g/dL Normal 3.4-5.0 The [facility] Comment on above: Performed By: #### L IPA CMP, TERRENCE ####[facility] Kffdaeoxrn[address] [place] [address]Dr. Chrissy Frazier Albumin/Globulin [Mass ratio] 1.0 {ratio} Normal The [facility] Comment on above: Performed By: #### L IPA, CMP, TERRENCE ####[facility] Ysbhginhhj23[address] [place] [address]Dr. Chrissy Frazier ALP [Catalytic activity/Vol] 92 U/L Normal 46-116 [facility] Comment on above: Performed By: #### L IPA, CMP, TERRENCE ####[facility] Ywsnjahrat[address] [place] [address]Dr. Chrissy Frazier ALT [Catalytic activity/Vol] 26 U/L Normal 16-63 [facility] Comment on above: Performed By: #### L IPA, CMP, TERRENCE ####[facility] Gclmsebssp34[address] [place] [address]Dr. Chrissy Frazier Anion gap [Moles/Vol] 19.5 mmol/L Normal [facility] Comment on above: Performed By: #### L IPA, CMP, TERRENCE ####[facility] Hfrjmistmi32[address] [place], [place] [address]Dr. Chrissy Frazier AST [Catalytic activity/Vol] 19 U/L Normal 15-37 [facility] Comment on above: Performed By: #### L IPA, CMP, TERRENCE ####[facility] Ludwnwuggw[address] [place], [place] [address]Dr. Chrissy Frazier Bilirubin [Mass/Vol] 0.7 mg/dL Normal 0.2-1.0 [facility] Comment on above: Performed By: #### L IPA, CMP, TERRENCE ####[facility] Jpwyrrdadi90[address] [place] [address]Dr. Chrissy Frazier Calcium [Mass/Vol] 9.6 mg/dL Normal 8.5-10.1 [facility] Comment on above: Performed By: #### L IPA, CMP, TERRENCE ####[facility] Uzdoxmczyh74[address] [place] [address]Dr. Chrissy Frazier Chloride [Moles/Vol] 102 mmol/L Normal 98-107 [facility] Comment on above: Performed By: #### L IPA, CMP, TERRENCE ####[facility] Yubazhswso[address] [place] [address]Dr. Chrissy Frazier CO2 [Moles/Vol] 19.1 mmol/L Critically low 21.0-32.0 [facility] Comment on above: Performed By: #### L IPA CMP, TERRENCE ####[facility] [facility] [address] [place] [address]Dr. Chrissy Frazier Creatinine [Mass/Vol] 1.47 mg/dL Critically high 0.70-1.30 [facility] Comment on above: Performed By: #### L IPA CMP, TERRENCE ####[facility] Rneemvgujt[address] [place], [place] [address]Dr. Chrissy Freddie EGFR-AF STATELESS >60 Normal >=60 [facility] Comment on above: Performed By: #### L IPA CMP, TERRENCE ####[facility] Gitjfcqnzk[address] [place], [place] [address]Dr. Tishrowan Freddie EGFR-NON AF STATELESS 56 mL/min/1.73m2 Critically low >=60 [facility] Comment on above: Performed By: #### L IPA CMP, TERRENCE ####[facility] Ftmhwqsfml[address] [place], [place] [address]Dr. Chrissy Frazier Globulin (S) [Mass/Vol] 4.3 g/dL Normal [facility] Comment on above: Performed By: #### L IPA CMP, TERRENCE ####[facility] Tmrqredyrd[address] [place], [place] [address]Dr. Chrissy Frazier Glucose [Mass/Vol] 189 mg/dL Critically high 74-106 [facility] Comment on above: Performed By: #### L IPA CMP, TERRENCE ####[facility] Esxfexwwje[address] [place], [place] [address]Dr. Chrissy Frazier Potassium [Moles/Vol] 4.6 mmol/L Normal 3.5-5.1 [facility] Comment on above: Performed By: #### L IPA CMP, TERRENCE ####[facility] Mvewduppgf237[address] [place], [place] [address]Dr. Chrissy Frazier Protein [Mass/Vol] 8.5 g/dL Critically high 6.4-8.2 [facility] Comment on above: Performed By: #### L IPA CMP, TERRENCE ####[facility] [address]ls[address] [place] [id number]. Chrissy Freddie Sodium [Moles/Vol] 136 mmol/L Normal 136-145 [facility] Comment on above: Performed By: #### L IPA, CMP, TERRENCE ####[facility] Gguumzziag[address] [place] [address]Dr. Chrissy Freddie Urea nitrogen [Mass/Vol] 16.0 mg/dL Normal 7.0-18.0 [facility] Comment on above: Performed By: #### L IPA, CMP, TERRENCE ####[facility] Z[address]ty[address] [place] [address]Dr. Tishrowan Frazier Urea nitrogen/Creatinine [Mass ratio] 10.9 mg/mg Normal [facility] Comment on above: Performed By: #### L IPA, CMP, TERRENCE ####[facility] Ezulinbxcx054[address] [place], [place] [address]Dr. Tishrowan Frazier AMYLASEon 09-03-2022 Amylase [Catalytic activity/Vol] 25 U/L Normal 25-115 [facility] Comment on above: Performed By: #### L IPA, TERRENCE, CMP ####[facility] Wcmlhjvpnq[address] [place], [place] [address]Dr. Chrissy Frazier CBC AUTO DIFFon 09-03-2022 BASO # 0.0 103/ul Normal 0.0-0.1 [facility] Comment on above: Performed By: #### C BC ####[facility] Kcciesuycp[address] [place], [place] [address]Dr. Chrissy Frazier Basophils/100 WBC (Bld) 0.1 % Critically low 0.2-2.0 [facility] Comment on above: Performed By: #### C BC ####[facility] Alqlhwewzj46[address] [place], [place] [address]Dr. Chrissy Frazier EO # 0.0 103/ul Normal 0.0-0.7 [facility] Comment on above: Performed By: #### C BC ####[facility] Prkosqyfmn[address] [place], [place] [address]Dr. Chrissy Frazier Eosinophils/100 WBC (Bld) 0.1 % Critically low 0.9-7.0 [facility] Comment on above: Performed By: #### C BC ####[facility] N[address]xf[address] [place] [address]Dr. Chrissy Frazier Erythrocyte distribution width (RBC) [Ratio] 14.0 % Normal 11.0-15.0 [facility] Comment on above: Performed By: #### C BC ####[facility] [address]ch[address] [place] [address]Dr. Chrissy Frazier Hematocrit (Bld) [Volume fraction] 42.5 % Normal 42.0-54.0 [facility] Comment on above: Performed By: #### C BC ####[facility] Ouhndptfem6[address] [place], [place] [address]Dr. Chrissy Frazier Hemoglobin (Bld) [Mass/Vol] 14.1 g/dL Normal 14.0-18.0 [facility] Comment on above: Performed By: #### C BC ####[facility] Uemyvhbkwm8[address] [place], [place] [address]Dr. Chrissy Frazier IG # 0.06 10e3/ul Critically high 0.00-0.03 [facility] Comment on above: Performed By: #### C BC ####[facility] Hzoihazymf045[address] [place], [place] [address]Dr. Chrissy Frazier IG % 0.4 % Normal 0.0-0.5 [facility] Comment on above: Performed By: #### C BC ####[facility] Yfdmzqqupz7[address] [place], [place] [address]Dr. Chrissy Frazier LYMPH # 2.5 103/ul Normal 1.2-3.8 [facility] Comment on above: Performed By: #### C BC ####[facility] Ojdedqhxei22[address] [place], [place] [address]Dr. Chrissy Frazier Lymphocytes/100 WBC (Bld) 16.3 % Critically low 20.5-60.0 [facility] Comment on above: Performed By: #### C BC ####[facility] Thpkkwgpfr[address] [place], [place] [address]Dr. Chrissy Frazier MANUAL DIFF REQ NO Normal [facility] Comment on above: Performed By: #### C BC ####[facility] [address]ts[address] [place] [id number] Chrissy Freddie MCH (RBC) [Entitic mass] 28.1 pg Normal 25.9-34.0 [facility] Comment on above: Performed By: #### C BC ####[facility] [address] [place] [address]Dr. Chrissy Frazier MCHC (RBC) [Mass/Vol] 33.2 g/dL Normal 29.9-35.2 [facility] Comment on above: Performed By: #### C BC ####[facility] Kdtqogugdc4[address] [place] [address]DrNancy Frazier MCV (RBC) [Entitic vol] 84.8 fL Normal 80.0-94.0 [facility] Comment on above: Performed By: #### C BC ####[facility] Jzfbvbkkof8239[address] [place], [place] [address]DrNancy Frazier MONO # 1.1 103/ul Critically high 0.3-0.8 [facility] Comment on above: Performed By: #### C BC ####[facility] Yhsgcnrcco[address] [place], [place] [address]DrNancy Frazier Monocytes/100 WBC (Bld) 7.4 % Normal 1.7-12.0 [facility] Comment on above: Performed By: #### C BC ####[facility] Yuwzjzlkdt[address] [place], [place] [address]DrNancy Frazier NEUT # 11.5 103/ul Critically high 1.4-6.5 [facility] Comment on above: Performed By: #### C BC ####[facility] Vfqvmvbcur[address] [place], [place] [address]DrNancy Frazier Neutrophils/100 WBC (Bld) 75.7 % Critically high 43.0-75.0 [facility] Comment on above: Performed By: #### C BC ####[facility] Gnghkdhnoi9[address] [place], [place] [address]DrNancy Frazier Platelet mean volume (Bld) [Entitic vol] 10.6 fL Normal 9.5-13.5 [facility] Comment on above: Performed By: #### C BC ####[facility] [address] [place] [address]Dr. Chrissy Frazier PLT 310 103/ul Normal 150-450 [facility] Comment on above: Performed By: #### C BC ####[facility] Jt[address]qbf[address] [place] [address]Dr. Chrissy Frazier RBC 5.01 106/ul Normal 4.70-6.10 [facility] Comment on above: Performed By: #### C BC ####[facility] Jrfavvjonu[address] [place] [address]Dr. Chrissy Frazier WBC 15.2 103/ul Critically high 4.0-11.0 [facility] Comment on above: Performed By: #### C BC ####[facility] Eelyrjxnyc6[address] [place], [place] [address]Dr. Chrissy Frazier LIPASEon 09-03-2022 Lipase [Catalytic activity/Vol] 46.0 U/L Critically low 73.0-393.0 [facility] Comment on above: Performed By: #### L TERRENCE VICTORIA, CMP ####[facility] Phvjjqmkja0637[address] [place], [place] [address]Dr. Chrissy Frazier PROF 14(COMP METB)on 022 Albumin [Mass/Vol] 3.7 g/dL Normal 3.4-5.0 [facility] Comment on above: Performed By: #### L TERRENCE VICTORIA, CMP ####[facility] Ofbptazuev[address] [place], [place] [address]Dr. Chrissy Frazier Albumin/Globulin [Mass ratio] 1.0 {ratio} Normal [facility] Comment on above: Performed By: #### L TERRENCE VICTORIA, CMP ####[facility] Zzlgprzfpp[address] [place], [place] [address]Dr. Chrissy Frazier ALP [Catalytic activity/Vol] 65 U/L Normal 46-116 [facility] Comment on above: Performed By: #### L TERRENCE VICTORIA, CMP ####[facility] [address] [place] [address]Dr. Chrissy Frazier ALT [Catalytic activity/Vol] 42 U/L Normal 16-63 [facility] Comment on above: Performed By: #### L TERRENCE VICTORIA, CMP ####[facility] [address]ytz[address] [place] [address]Dr. Chrissy Frazier Anion gap [Moles/Vol] 14.4 mmol/L Normal [facility] Comment on above: Performed By: #### L TERRENCE VICTORIA, CMP ####[facility] Vdaxotkaqp17[address] [place], [place] [address]Dr. Chrissy Frazier AST [Catalytic activity/Vol] 16 U/L Normal 15-37 [facility] Comment on above: Performed By: #### L TERRENCE VICTORIA, CMP ####[facility] Nbwqudstcu[address] [place], [place] [address]Dr. Chrissy Frazier Bilirubin [Mass/Vol] 0.4 mg/dL Normal 0.2-1.0 [facility] Comment on above: Performed By: #### L TERRENCE VICTORIA, CMP ####[facility] Qoadiufyyv[address] [place], [place] [address]Dr. Chrissy Frazier Calcium [Mass/Vol] 8.7 mg/dL Normal 8.5-10.1 [facility] Comment on above: Performed By: #### L TERRENCE VICTORIA, CMP ####[facility] Xealbezxha[address] [place], [place] [address]Dr. Chrissy Frazier Chloride [Moles/Vol] 105 mmol/L Normal 98-107 [facility] Comment on above: Performed By: #### L TERRENCE VICTORIA, CMP ####[facility] [address] [place] [address]Dr. Chrissy Frazier CO2 [Moles/Vol] 22.6 mmol/L Normal 21.0-32.0 [facility] Comment on above: Performed By: #### L TERRENCE VICTORIA, CMP ####[facility] Yskgmmjkrj9[address] [place], [place] [address]Dr. Chrissy Frazier Creatinine [Mass/Vol] 1.11 mg/dL Normal 0.70-1.30 [facility] Comment on above: Performed By: #### L IPA TERRENCE, CMP ####[facility] [address] [place] [id number]. Chrissy Frazier EGFR-AF STATELESS >60 Normal >=60 [facility] Comment on above: Performed By: #### L IPA TERRENCE, CMP ####[facility] [address]xpt[address] [place] [id number]. Chrissy Frazier EGFR-NON AF STATELESS >60 Normal >=60 [facility] Comment on above: Performed By: #### L IPA TERRENCE, CMP ####[facility] [address]ns[address]xz[address] [place] [address]Dr. Chrissy Frazier Globulin (S) [Mass/Vol] 3.7 g/dL Normal [facility] Comment on above: Performed By: #### L JULIEN TERRENCE, CMP ####[facility] [address]xs[address] [place] [address]Dr. Chrissy Frazier Glucose [Mass/Vol] 121 mg/dL Critically high 74-106 [facility] Comment on above: Performed By: #### L JULIEN TERRENCE, CMP ####[facility] Klbtplkmxe[address] [place] [address]Dr. Chrissy Frazier Potassium [Moles/Vol] 4.0 mmol/L Normal 3.5-5.1 [facility] Comment on above: Performed By: #### L JULIEN TERRENCE, CMP ####[facility] [address] [place] [address]Dr. Chrissy Frazier Protein [Mass/Vol] 7.4 g/dL Normal 6.4-8.2 [facility] Comment on above: Performed By: #### L JULIEN TERRENCE, CMP ####[facility] [address]jfl[address] [place] [address]Dr. Chrissy Frazier Sodium [Moles/Vol] 138 mmol/L Normal 136-145 [facility] Comment on above: Performed By: #### L IPA TERRENCE, CMP ####[facility] [address]ro[address]akwr[address] [place] [address]Dr. Chrissy Frazier Urea nitrogen [Mass/Vol] 6.0 mg/dL Critically low 7.0-18.0 [facility] Comment on above: Performed By: #### L IPA, TERRENCE, CMP ####[facility] Ddcouwcqbn66[address] [place], [place] [address]Dr. Chrissy Frazier Urea nitrogen/Creatinine [Mass ratio] 5.4 mg/mg Normal [facility] Comment on above: Performed By: #### L IPA, TERRENCE, CMP ####[facility] Rvhcdqisrh8[address] [place], [place] [address]Dr. Chrissy Frazier AMYLASEon 09-02-2022 Amylase [Catalytic activity/Vol] 29 U/L Normal 25-115 [facility] Comment on above: Performed By: #### A MY, CMP, LIPA ####[facility] Uttnrvjisd[address] [place], [place] [address]Dr. Chrissy Frazier CBC AUTO DIFFon 09-02-2022 BASO # 0.1 103/ul Normal 0.0-0.1 [facility] Comment on above: Performed By: #### C BC ####[facility] Crszqshqkj7[address] [place], [place] [address]Dr. Chrissy Frazier Basophils/100 WBC (Bld) 0.4 % Normal 0.2-2.0 [facility] Comment on above: Performed By: #### C BC ####[facility] Ivtvpcwfgr65[address] [place], [place] [address]Dr. Chrissy Frazier EO # 0.1 103/ul Normal 0.0-0.7 [facility] Comment on above: Performed By: #### C BC ####[facility] Piectqvhju6799[address] [place], [place] [address]Dr. Chrissy Frazier Eosinophils/100 WBC (Bld) 0.7 % Critically low 0.9-7.0 [facility] Comment on above: Performed By: #### C BC ####[facility] Rcvoznqikl[address] [place], [place] [address]Dr. Chrissy Frazier Erythrocyte distribution width (RBC) [Ratio] 13.7 % Normal 11.0-15.0 [facility] Comment on above: Performed By: #### C BC ####[facility] Nmqzmkuxna40[address] [place] [id number]. Chrissy Frazier Hematocrit (Bld) [Volume fraction] 48.3 % Normal 42.0-54.0 [facility] Comment on above: Performed By: #### C BC ####[facility] [address]qev[address]qlb[address] [place] [id number]. Chrissy Frazier Hemoglobin (Bld) [Mass/Vol] 16.0 g/dL Normal 14.0-18.0 [facility] Comment on above: Performed By: #### C BC ####[facility] Dliciyabze[address] [place] [id number]. Chrissy Freddie IG # 0.09 10e3/ul Critically high 0.00-0.03 [facility] Comment on above: Performed By: #### C BC ####[facility] Nvvktvpfbn2[address] [place] [address]Dr. Chrissy Frazier IG % 0.5 % Normal 0.0-0.5 [facility] Comment on above: Performed By: #### C BC ####[facility] Syxrqzymtp[address] [place] [address]Dr. Tishrowan Frazier LYMPH # 3.7 103/ul Normal 1.2-3.8 [facility] Comment on above: Performed By: #### C BC ####[facility] Y[address]izjt[address] [place] [address]Dr. Tishrowan Frazier Lymphocytes/100 WBC (Bld) 21.5 % Normal 20.5-60.0 [facility] Comment on above: Performed By: #### C BC ####[facility] Uvhflfjdec6[address] [place] [id number]. Tishrowan Frazier MANUAL DIFF REQ NO Normal [facility] Comment on above: Performed By: #### C BC ####[facility] Xsjerrabqi[address] [place] [address]Dr. Chrissy Freddie MCH (RBC) [Entitic mass] 28.1 pg Normal 25.9-34.0 [facility] Comment on above: Performed By: #### C BC ####[facility] Vbngqpoxth48[address] [place] [id number]. Chrissy Frazier MCHC (RBC) [Mass/Vol] 33.1 g/dL Normal 29.9-35.2 [facility] Comment on above: Performed By: #### C BC ####[facility] [address]vctm[address] [place] [id number]. Chrissy Frazier MCV (RBC) [Entitic vol] 84.7 fL Normal 80.0-94.0 [facility] Comment on above: Performed By: #### C BC ####[facility] Oexkyipvze[address] [place] [id number]. Chrissy Frazier MONO # 0.7 103/ul Normal 0.3-0.8 [facility] Comment on above: Performed By: #### C BC ####[facility] Thiykuazdi[address] [place] [address]Dr. Chrissy Frazier Monocytes/100 WBC (Bld) 4.2 % Normal 1.7-12.0 [facility] Comment on above: Performed By: #### C BC ####[facility] X[address]xvw[address] [place], [place] [address]Dr. Chrissy Frazier NEUT # 12.4 103/ul Critically high 1.4-6.5 [facility] Comment on above: Performed By: #### C BC ####[facility] Szdpolomab[address] [place] [id number]. Chrissy Frazier Neutrophils/100 WBC (Bld) 72.7 % Normal 43.0-75.0 [facility] Comment on above: Performed By: #### C BC ####[facility] Gwiohwoddv68[address] [place] [id number]. Chrissy Frazier Platelet mean volume (Bld) [Entitic vol] 10.9 fL Normal 9.5-13.5 [facility] Comment on above: Performed By: #### C BC ####[facility] Iggeooqmnm[address] [place] [id number]. Chrissy Freddie PLT 386 103/ul Normal 150-450 [facility] Comment on above: Performed By: #### C BC ####[facility] Yagjjpxfpk2964 [place], [place] [address]Xl. Chrissy Frazier RBC 5.70 106/ul Normal 4.70-6.10 [facility] Comment on above: Performed By: #### C BC ####[facility] Oxshznproy[address] [place] [id number]. Chrissy Frazier WBC 17.0 103/ul Critically high 4.0-11.0 [facility] Comment on above: Performed By: #### C BC ####[facility] Jekvekcfjw[address] [place] [phone]. Chrissy Frazier Covid-19 PCR (CVDTBH)on 08-21 SARS-CoV-2 (COVID-19) RNA RHIANNON+probe Ql (Unsp spec) Not detected Normal NOT DETECTED [facility] Comment on above: Result [...] for this test is supported by the Corporate Lawyer of Health and Human Service's declaration that [...] used). Performed By: #### C VDTBH ####[facility] Bjnrhsnmwk38[address] [place] [phone]. Chrissy Frazier LACTATE/LACTIC ACIDon 2021 Lactate [Moles/Vol] 7.1 mmol/L Critically high 0.4-1.9 [facility] Comment on above: Performed By: #### L ACT ####[facility] Cuxpkcbmdk9[address] [place] [phone]. Chrissy Frazier Lactate [Moles/Vol] 8.6 mmol/L Critically high 0.4-1.9 [facility] Comment on above: Performed By: #### L ACT ####[facility] Mhlhvaukje[address] [place], [place] [address]Dr. Chrissy Frazier LIPASEon 09-02-2022 Lipase [Catalytic activity/Vol] 60.0 U/L Critically low 73.0-393.0 [facility] Comment on above: Performed By: #### A MY, CMP, LIPA ####[facility] Jiizxymaxp[address] [place], [place] [address]Dr. Chrissy Frazier POINT OF CARE GLUCOSEon 08-21 Glucose [Mass/Vol] 140 mg/dL Critically high 74-106 [facility] Comment on above: Performed By: #### P OCGLUC ####[facility] Yovlcujsyj872[address] [place], [place] [address]Dr. Chrissy Frazier PROF 14(COMP METB)on 022 Albumin [Mass/Vol] 4.3 g/dL Normal 3.4-5.0 [facility] Comment on above: Performed By: #### A MY, CMP, LIPA ####[facility] Fqdwykycyg[address] [place], [place] [address]Dr. Chrissy Frazier Albumin/Globulin [Mass ratio] 1.0 {ratio} Normal [facility] Comment on above: Performed By: #### A MY, CMP, LIPA ####[facility] Msmrzycsny[address] [place] [address]Dr. Chrissy Frazier ALP [Catalytic activity/Vol] 82 U/L Normal 46-116 [facility] Comment on above: Performed By: #### A MY, CMP, LIPA ####[facility] Aqaexlxhfb20[address] [place] [address]Dr. Chrissy Frazier ALT [Catalytic activity/Vol] 48 U/L Normal 16-63 [facility] Comment on above: Performed By: #### A MY, CMP, LIPA ####[facility] Nuupugoexr[address] [place] [address]Dr. Chrissy Frazier Anion gap [Moles/Vol] 25.3 mmol/L Normal [facility] Comment on above: Performed By: #### A MY, CMP, LIPA ####[facility] Xtmgylcqya[address] [place] [address]Dr. Chrissy Frazier AST [Catalytic activity/Vol] 33 U/L Normal 15-37 [facility] Comment on above: Performed By: #### A MY, CMP, LIPA ####[facility] Bbwscaegtg[address] [place], [place] [address]Dr. Chrissy Frazier Bilirubin [Mass/Vol] 0.7 mg/dL Normal 0.2-1.0 [facility] Comment on above: Performed By: #### A MY, CMP, LIPA ####[facility] Etgbliphjk[address] [place], [place] [address]Dr. Chrissy Frazier Calcium [Mass/Vol] 9.5 mg/dL Normal 8.5-10.1 [facility] Comment on above: Performed By: #### A MY, CMP, LIPA ####[facility] Qgvylawltn[address] [place], [place] [address]Dr. Chrissy Frazier Chloride [Moles/Vol] 100 mmol/L Normal 98-107 [facility] Comment on above: Performed By: #### A MY, CMP, LIPA ####[facility] Wjqwflfphz[address] [place], [place] [address]Dr. Chrissy Frazier CO2 [Moles/Vol] 14.2 mmol/L Critically low 21.0-32.0 [facility] Comment on above: Performed By: #### A MY, CMP, LIPA ####[facility] Wkihgcnpdx[address] [place], [place] [address]Dr. Chrissy Frazier Creatinine [Mass/Vol] 1.70 mg/dL Critically high 0.70-1.30 [facility] Comment on above: Performed By: #### A MY, CMP, LIPA ####[facility] Vlasvxoecd[address] [place], [place] [address]Dr. Chrissy Frazier EGFR-AF STATELESS 57 mL/min/1.73m2 Critically low >=60 [facility] Comment on above: Performed By: #### A MY, CMP, LIPA ####[facility] Lsx[address]wlkq[address] [place] [id number]. Chrissy Frazier EGFR-NON AF STATELESS 47 mL/min/1.73m2 Critically low >=60 [facility] Comment on above: Performed By: #### A MY, CMP, LIPA ####[facility] Xwwxzxdrwt[address] [place] [address]Dr. Chrissy Frazier Globulin (S) [Mass/Vol] 4.2 g/dL Normal [facility] Comment on above: Performed By: #### A MY, CMP, LIPA ####[facility] [address]qsipbqlvm[address] [place] [address]Dr. Chrissy Frazier Glucose [Mass/Vol] 212 mg/dL Critically high 74-106 [facility] Comment on above: Performed By: #### A MY, CMP, LIPA ####[facility] Msndtanjap[address] [place] [address]Dr. Chrissy Frazier Potassium [Moles/Vol] 3.5 mmol/L Normal 3.5-5.1 [facility] Comment on above: Performed By: #### A MY, CMP, LIPA ####[facility] Mprffydjta[address] [place] [address]Dr. Chrissy Frazier Protein [Mass/Vol] 8.5 g/dL Critically high 6.4-8.2 [facility] Comment on above: Performed By: #### A MY, CMP, LIPA ####[facility] Qdnzifxprf[address] [place] [address]Dr. Chrissy Frazier Sodium [Moles/Vol] 136 mmol/L Normal 136-145 [facility] Comment on above: Performed By: #### A MY, CMP, LIPA ####[facility] Lysfwakmph039[address] [place] [address]Dr. Crhissy Frazier Urea nitrogen [Mass/Vol] 9.0 mg/dL Normal 7.0-18.0 [facility] Comment on above: Performed By: #### A MY, CMP, LIPA ####[facility] Txhcevwfgf[address] [place] [address]Dr. Yilan Frazier Urea nitrogen/Creatinine [Mass ratio] 5.3 mg/mg Normal [facility] Comment on above: Performed By: #### A MY, CMP, LIPA ####[facility] Nlhmygidpu[address] [place], [place] [address]Dr. Chrissy Frazier AMYLASEon 07-07-2022 Amylase [Catalytic activity/Vol] 33 U/L Normal 25-115 [facility] Comment on above: Performed By: #### C MP, TERRENCE, BNP, LIPA ####[facility] Plvkuswhfw49[address] [place], [place] [address]Dr. Chrissy Frazier BNPon 07-07-2022 Natriuretic peptide B (Bld) [Mass/Vol] 29.0 pg/mL Normal <=450.0 The [facility] Comment on above: Performed By: #### C MP, TERRENCE, BNP, LIPA ####[facility] Smggyqbbht33[address] [place], [place] [address]Dr. Chrissy Frazier CBC AUTO DIFFon 07-07-2022 BASO # 0.0 103/ul Normal 0.0-0.1 [facility] Comment on above: Performed By: #### C BC ####[facility] Vglivqzsss[address] [place], [place] [address]Dr. Chrissy Frazier Basophils/100 WBC (Bld) 0.4 % Normal 0.2-2.0 The [facility] Comment on above: Performed By: #### C BC ####[facility] Qwvpllshfj9[address] [place], [place] [address]Dr. Chrissy Frazier EO # 0.3 103/ul Normal 0.0-0.7 [facility] Comment on above: Performed By: #### C BC ####[facility] Ahwuteyhoe4[address] [place], [place] [address]Dr. Chrissy Frazier Eosinophils/100 WBC (Bld) 3.0 % Normal 0.9-7.0 [facility] Comment on above: Performed By: #### C BC ####[facility] Fttndhkytl[address] [place], [place] [address]Dr. Chrissy Frazier Erythrocyte distribution width (RBC) [Ratio] 14.0 % Normal 11.0-15.0 [facility] Comment on above: Performed By: #### C BC ####[facility] Yosdmumrlu26[address] [place] [address]DrNancy Frazier Hematocrit (Bld) [Volume fraction] 42.8 % Normal 42.0-54.0 [facility] Comment on above: Performed By: #### C BC ####[facility] Gcqnkljnke80[address] [place] [address]DrNancy Frazier Hemoglobin (Bld) [Mass/Vol] 14.3 g/dL Normal 14.0-18.0 The [facility] Comment on above: Result Comment: IV F LUIDS RUNNING Performed By: #### C BC ####[facility] Cxdmaspitk[address] [place], [place] [address]DrNancy Frazier IG # 0.05 10e3/ul Critically high 0.00-0.03 [facility] Comment on above: Performed By: #### C BC ####[facility] Ekfagawxpv[address] [place], [place] [address]DrNancy Frazier IG % 0.5 % Normal 0.0-0.5 [facility] Comment on above: Performed By: #### C BC ####[facility] Hisrogcwfs[address] [place], [place] [address]DrNancy Frazier LYMPH # 2.4 103/ul Normal 1.2-3.8 [facility] Comment on above: Performed By: #### C BC ####[facility] Lacupuurld9[address] [place], [place] [address]DrNancy Frazier Lymphocytes/100 WBC (Bld) 25.5 % Normal 20.5-60.0 [facility] Comment on above: Performed By: #### C BC ####[facility] Rlacffbmot[address] [place], [place] [address]DrNancy Frazier MANUAL DIFF REQ NO Normal [facility] Comment on above: Performed By: #### C BC ####[facility] Xwjbpmtfyw2190 [place] [address]DrNancy Frazier MCH (RBC) [Entitic mass] 28.5 pg Normal 25.9-34.0 The [facility] Comment on above: Performed By: #### C BC ####[facility] Ctrwnmuspl88[address] [place] [address]Dr. Chrissy Frazier MCHC (RBC) [Mass/Vol] 33.4 g/dL Normal 29.9-35.2 [facility] Comment on above: Performed By: #### C BC ####[facility] Jknfmrffnf4[address] [place] [address]Dr. Chrissy Frazier MCV (RBC) [Entitic vol] 85.3 fL Normal 80.0-94.0 [facility] Comment on above: Performed By: #### C BC ####[facility] Qsipyohxqw9[address] [place], [place] [address]DrNancy Frazier MONO # 0.7 103/ul Normal 0.3-0.8 [facility] Comment on above: Performed By: #### C BC ####[facility] Obccnkoafi9135[address] [place], [place] [address]Dr. Chrissy Frazier Monocytes/100 WBC (Bld) 7.8 % Normal 1.7-12.0 [facility] Comment on above: Performed By: #### C BC ####[facility] Ahindlzfqg7[address] [place], [place] [address]Dr. Chrissy Frazier NEUT # 5.8 103/ul Normal 1.4-6.5 [facility] Comment on above: Performed By: #### C BC ####[facility] Lejdgqleej56[address] [place], [place] [address]Dr. Chrissy Frazier Neutrophils/100 WBC (Bld) 62.8 % Normal 43.0-75.0 [facility] Comment on above: Performed By: #### C BC ####[facility] Qtahddwkcr35[address] [place], [place] [address]Dr. Chrissy Frazier Platelet mean volume (Bld) [Entitic vol] 10.8 fL Normal 9.5-13.5 [facility] Comment on above: Performed By: #### C BC ####[facility] Uovvzmktwb0974[address] [place], [place] [address]Dr. Chrissy Frazier PLT 310 103/ul Normal 150-450 [facility] Comment on above: Performed By: #### C BC ####[facility] Bcvfmpkfoo[address] [place] [id number]. Chrissy Frazier RBC 5.02 106/ul Normal 4.70-6.10 [facility] Comment on above: Performed By: #### C BC ####[facility] Zzyurhpsuw7231 [place], [place] [address]Rn. Chrissy Frazier WBC 9.3 103/ul Normal 4.0-11.0 [facility] Comment on above: Performed By: #### C BC ####[facility] Upuhuqzukh[address] [place] [id number]. Tishrowan Freddie CULTURE URINEon 07-07-2022 CULTURE URINE Culture Observations: NO GROWTH. Normal The [facility] Comment on above: Performed By: #### U RCX ####[facility] Dyvkimmbde[address] [place] [id number]. Chrissy Frazier DRUG SCREEN RAPID (URINE)on 07-07-2022 AMP Negative Normal NEGATIVE [facility] Comment on above: Performed By: #### D RUGRPD ####[facility] Kyayzeevxj65[address] [place] [id number]. Chrissy Frazier BAR Negative Normal NEGATIVE [facility] Comment on above: Performed By: #### D RUGRPD ####[facility] Wssmjeduvv32[address] [place] [id number]. Chrissy Frazier BUP Negative Normal NEGATIVE The [facility] Comment on above: Performed By: #### D RUGRPD ####[facility] Ajmmplgxab6098 [place] [id number]. Chrissy Frazier BZO Positive Abnormal NEGATIVE The [facility] Comment on above: Performed By: #### D RUGRPD ####[facility] Zljradfvjb1439 [place] [phone]. Chrissy Frazier LAUREN Negative Normal NEGATIVE The [facility] Comment on above: Performed By: #### D RUGRPD ####[facility] Lbdbubejpf5[address] [place] [id number]. Chrissy Frazier CUT-OFFS SEE BELOW Normal The [facility] Comment on above: Result [...] ng/mL Performed By: #### D RUGRPD ####[facility] Lbgummyiay7317[address] [place], [place] [address]Dr. [facility] DRUG CUT HEADER DRUG CLASS TEST SYSTEM CUT-OFF CONCENTRATIONS ARE FOLLOWS: Normal The [facility] Comment on above: Performed By: #### D RUGRPD ####[facility] Dwwkpyoogi6[address] [place], [place] [address]Dr. Tishrowan [facility] mAMP Negative Normal NEGATIVE The [facility] Comment on above: Performed By: #### D RUGRPD ####[facility] Uncneikxyp248[address] [place], [place] [address]Dr. Chrissy [facility] MTD Negative Normal NEGATIVE The [facility] Comment on above: Performed By: #### D RUGRPD ####[facility] Tleadsnsup9678[address] [place], [place] [address]Dr. Chrissy [facility] OPI Negative Normal NEGATIVE The [facility] Comment on above: Performed By: #### D RUGRPD ####[facility] Vbfolddawp[address] [place], [place] [address]Dr. Chrissy Frazier OXY Negative Normal NEGATIVE The [facility] Comment on above: Performed By: #### D RUGRPD ####[facility] Uvfohidayr1466[address] [place], [place] [address]Dr. Chrissy [facility] PCP Negative Normal NEGATIVE The [facility] Comment on above: Performed By: #### D RUGRPD ####[facility] Tvqdxmqarj[address] [place], [place] [address]Dr. Chrissy Freddie PPX Negative Normal NEGATIVE The [facility] Comment on above: Performed By: #### D RUGRPD ####[facility] Vspfpkddwv22[address] [place] [address]Dr. Chrissy Freddie TCA Positive Abnormal NEGATIVE The [facility] Comment on above: Performed By: #### D RUGRPD ####[facility] Hbvoszmaqx495[address] [place] [address]Dr. Chrissy Freddie THC Positive Abnormal NEGATIVE The [facility] Comment on above: Performed By: #### D RUGRPD ####[facility] Xilgwnvxod8[address] [place] [address]Dr. Tishrowan Frazier LIPASEon 07-07-2022 Lipase [Catalytic activity/Vol] 118.0 U/L Normal 73.0-393.0 [facility] Comment on above: Performed By: #### L IPA ####[facility] Vhuodypcfv460[address] [place], [place] [address]Dr. Chrissy Frazier Lipase [Catalytic activity/Vol] 114.0 U/L Normal 73.0-393.0 [facility] Comment on above: Performed By: #### C MP, TERRENCE, BNP, LIPA ####[facility] Hyalocdjhs61[address] [place], [place] [address]Dr. Chrissy Frazier PROF 14(COMP METB)on 022 Albumin [Mass/Vol] 3.4 g/dL Normal 3.4-5.0 [facility] Comment on above: Performed By: #### C MP, TERRENCE, BNP, LIPA ####[facility] Euekayshta[address] [place] [address]Dr. Chrissy Frazier Albumin/Globulin [Mass ratio] 1.1 {ratio} Normal [facility] Comment on above: Performed By: #### C MP, TERRENCE, BNP, LIPA ####[facility] Kvkqtifxvd99[address] [place] [address]Dr. Chrissy Frazier ALP [Catalytic activity/Vol] 68 U/L Normal 46-116 [facility] Comment on above: Performed By: #### C MP, TERRENCE, BNP, LIPA ####[facility] Ipqcpikzsu47[address] [place] [address]Dr. Chrissy Frazier ALT [Catalytic activity/Vol] 93 U/L Critically high 16-63 [facility] Comment on above: Performed By: #### C MP, TERRENCE, BNP, LIPA ####[facility] Wdyaysowcz47[address] [place] [address]Dr. Chrissy Frazier Anion gap [Moles/Vol] 14.4 mmol/L Normal The [facility] Comment on above: Performed By: #### C MP, TERRENCE, BNP, LIPA ####[facility] Arcoimxmdn8[address] [place] [address]Dr. Chrissy Frazier AST [Catalytic activity/Vol] 33 U/L Normal 15-37 The [facility] Comment on above: Performed By: #### C MP, TERRENCE, BNP, LIPA ####[facility] Ralfvwnnsl95[address] [place] [address]Dr. Chrissy Frazier Bilirubin [Mass/Vol] 0.9 mg/dL Normal 0.2-1.0 [facility] Comment on above: Performed By: #### C MP, TERRENCE, BNP, LIPA ####[facility] Vkajzqlkqz184[address] [place], [place] [address]Dr. Chrissy Frazier Calcium [Mass/Vol] 8.2 mg/dL Critically low 8.5-10.1 Th e [facility] Comment on above: Performed By: #### C MP, TERRENCE, BNP, LIPA ####[facility] Bqasvqobuj60[address] [place], [place] [address]Dr. Chrissy Frazier Chloride [Moles/Vol] 103 mmol/L Normal 98-107 [facility] Comment on above: Performed By: #### C MP, TERRENCE, BNP, LIPA ####[facility] Qgtusomwjo68[address] [place], [place] [address]Dr. Chrissy Frazier CO2 [Moles/Vol] 22.9 mmol/L Normal 21.0-32.0 The [facility] Comment on above: Performed By: #### C MP, TERRENCE, BNP, LIPA ####[facility] Pfnzdqgdms94[address] [place], [place] [address]Dr. Chrissy Frazier Creatinine [Mass/Vol] 1.07 mg/dL Normal 0.70-1.30 The [facility] Comment on above: Performed By: #### C MP, TERRENCE, BNP, LIPA ####[facility] Oxuttsvzkp8[address] [place] [address]Dr. Chrissy Frazier EGFR-AF STATELESS >60 Normal >=60 The [facility] Comment on above: Performed By: #### C MP, TERRENCE, BNP, LIPA ####[facility] Vuoplzrbko020[address] [place] [address]Dr. Chrissy Frazier EGFR-NON AF STATELESS >60 Normal >=60 The [facility] Comment on above: Performed By: #### C MP, TERRENCE, BNP, LIPA ####[facility] Kvcgrjedav2975 [place] [address]Dr. Chrissy Frazier Globulin (S) [Mass/Vol] 3.2 g/dL Normal The [facility] Comment on above: Performed By: #### C MP, TERRENCE, BNP, LIPA ####[facility] Fryitfqbex006[address] [place], [place] [address]Dr. Chrissy Frazier Glucose [Mass/Vol] 96 mg/dL Normal 74-106 The [facility] Comment on above: Performed By: #### C MP, TERRENCE, BNP, LIPA ####[facility] Wjxbiurswq8124 [place] [address]Dr. Chrissy Frazier Potassium [Moles/Vol] 3.3 mmol/L Critically low 3.5-5.1 The [facility] Comment on above: Performed By: #### C MP, TERRENCE, BNP, LIPA ####[facility] Hdfedjnfue40[address] [place] [address]Dr. Chrissy Frazier Protein [Mass/Vol] 6.6 g/dL Normal 6.4-8.2 The [facility] Comment on above: Performed By: #### C MP, TERRENCE, BNP, LIPA ####[facility] Hgrmbeagsl8209 [place] [address]Dr. Chrissy Frazier Sodium [Moles/Vol] 137 mmol/L Normal 136-145 The [facility] Comment on above: Performed By: #### C MP, TERRENCE, BNP, LIPA ####[facility] Kcoeqernyw545[address] [place], [place] [address]Dr. Chrissy Frazier Urea nitrogen [Mass/Vol] 13.0 mg/dL Normal 7.0-18.0 [facility] Comment on above: Performed By: #### C MP, TERRENCE, BNP, LIPA ####[facility] Squflhhdeg672[address] [place], [place] [address]Dr. Chrissy Frazier Urea nitrogen/Creatinine [Mass ratio] 12.1 mg/mg Normal [facility] Comment on above: Performed By: #### C MP, TERRENCE, BNP, LIPA ####[facility] Mbmpioupsd9524[address] [place], [place] [address]Dr. Chrissy Frazier UA RANDOM W/MICROSCOPICon BACTERIA TRACE Abnormal NONE SEEN [facility] Comment on above: Performed By: #### U AMIC ####[facility] Vlmfirxlfy817[address] [place], [place] [address]Dr. Chrissy Frazier Bilirubin Ql (U) Negative Normal NEGATIVE The [facility] Comment on above: Performed By: #### U AMIC ####[facility] Maeuohzxuw4[address] [place], [place] [address]Dr. Chrissy Frazier CAST NONE SEEN Normal NONE SEEN [facility] Comment on above: Performed By: #### U AMIC ####[facility] Cxaeaskooj55[address] [place], [place] [address]Dr. Chrissy Frazier Clarity (U) CLEAR Normal CLEAR The [facility] Comment on above: Performed By: #### U AMIC ####[facility] Gfhngkihsj[address] [place], [place] [address]Dr. Chrissy Frazier Color (U) YELLOW Normal YELLOW The [facility] Comment on above: Performed By: #### U AMIC ####[facility] Vpprjuaxir[address] [place], [place] [address]Dr. Chrissy Frazier Crystals LM Nom (Urine sed) SEEN Abnormal NONE SEEN [facility] Comment on above: Performed By: #### U AMIC ####[facility] Qddvlkypqp7614[address] [place], [place] [address]Dr. Chrissy Frazier Epithelial cells LM Ql (Urine sed) RARE Normal NONE SEEN /RARE The [facility] Comment on above: Performed By: #### U AMIC ####[facility] Zcvslrvfpf19[address] [place] [address]Dr. Chrissy Frazier Glucose Ql (U) Negative Normal NEGATIVE [facility] Comment on above: Performed By: #### U AMIC ####[facility] Ucjpifplvg00[address] [place], [place] [address]Dr. Chrissy Frazier Hemoglobin Ql (U) Negative Normal NEGATIVE The [facility] Comment on above: Performed By: #### U AMIC ####[facility] Wiuufycbks86[address] [place], [place] [address]Dr. Chrissy Frazier Ketones Ql (U) 15 mg/dl Abnormal NEGATIVE [facility] Comment on above: Performed By: #### U AMIC ####[facility] Pnzighcttk6915[address] [place], [place] [address]Dr. Chrissy Frazier LEUKOCYTES Negative Normal NEGATIVE The [facility] Comment on above: Performed By: #### U AMIC ####[facility] Javvzgtfou6894[address] [place], [place] [address]Dr. Chrissy Frazier MUCOUS NONE SEEN Normal NONE SEEN The [facility] Comment on above: Performed By: #### U AMIC ####[facility] Kmwcovjqvj527[address] [place], [place] [address]Dr. Chrissy Frazier Nitrite Ql (U) Negative Normal NEGATIVE [facility] Comment on above: Performed By: #### U AMIC ####[facility] Eqyzyfkfoh6[address] [place], [place] [address]Dr. Chrissy Frazier pH (U) 6.0 [pH] Normal 5-9 The [facility] Comment on above: Performed By: #### U AMIC ####[facility] Tcvyvfvtnk30[address] [place], [place] [address]Dr. Chrissy Frazier RBC 0-2 Normal 0-2 The [facility] Comment on above: Performed By: #### U AMIC ####[facility] Ywthnbgnxg0[address] [place], [place] [address]Dr. Chrissy Frazier SPEC GRAVITY 1.015 Normal 1.005-<=1.025 The [facility] Comment on above: Performed By: #### U AMIC ####[facility] Lbwpzsyopp55[address] [place] [address]Dr. Chrissy Frazier UA PROTEIN Negative Normal NEGATIVE/ TRACE [facility] Comment on above: Performed By: #### U AMIC ####[facility] Vzxomzmbcg5[address] [place] [address]Dr. Chrissy Frazier URIC ACID CRYSTALS RARE Normal The [facility] Comment on above: Performed By: #### U AMIC ####[facility] Eqrwsdftrx3717 [place] [address]Dr. Chrissy Freddie Urobilinogen Qn (U) 0.2 {Estrellita'U}/dL Normal 0.2 - 1. 0 [facility] Comment on above: Performed By: #### U AMIC ####[facility] Pgznjzhhcb1467[address] [place], [place] [address]Dr. Tishrowan Frazier WBC 0-2 Abnormal NONE SEEN The [facility] Comment on above: Performed By: #### U AMIC ####[facility] Abaemqclzf[address] [place], [place] [address]Dr. Chrissy Freddie AMYLASEon 07-06-2022 Amylase [Catalytic activity/Vol] 37 U/L Normal 25-115 [facility] Comment on above: Performed By: #### C MP, LIPA, TERRENCE ####[facility] Vziyasjfpn30[address] [place], [place] [address]Dr. Chrissy Frazier CBC AUTO DIFFon 07-06-2022 BASO # 0.1 103/ul Normal 0.0-0.1 [facility] Comment on above: Performed By: #### C BC ####[facility] Ntqubbcjjc80[address] [place], [place] [address]Dr. Tishrowan Frazier Basophils/100 WBC (Bld) 0.4 % Normal 0.2-2.0 [facility] Comment on above: Performed By: #### C BC ####[facility] Kgcbmyrjvn16[address] [place], [place] [address]Dr. Chrissy Frazier EO # 0.1 103/ul Normal 0.0-0.7 [facility] Comment on above: Performed By: #### C BC ####[facility] Uikbnabsmj8[address] [place] [address]Dr. Chrissy Frazier Eosinophils/100 WBC (Bld) 0.5 % Critically low 0.9-7.0 [facility] Comment on above: Performed By: #### C BC ####[facility] Ocxocafoel[address] [place], [place] [address]Dr. Chrissy Frazier Erythrocyte distribution width (RBC) [Ratio] 13.6 % Normal 11.0-15.0 [facility] Comment on above: Performed By: #### C BC ####[facility] Xgeaaxkcbv9[address] [place], [place] [address]Dr. Chrissy Frazier Hematocrit (Bld) [Volume fraction] 47.9 % Normal 42.0-54.0 [facility] Comment on above: Performed By: #### C BC ####[facility] Btduutkbjc90[address] [place], [place] [address]Dr. Chrissy Frazier Hemoglobin (Bld) [Mass/Vol] 16.4 g/dL Normal 14.0-18.0 [facility] Comment on above: Performed By: #### C BC ####[facility] Whbdbgfljd04[address] [place], [place] [address]Dr. Chrissy Frazier IG # 0.09 10e3/ul Critically high 0.00-0.03 [facility] Comment on above: Performed By: #### C BC ####[facility] Zazplcoyyr[address] [place], [place] [address]Dr. Chrissy Frazier IG % 0.6 % Critically high 0.0-0.5 [facility] Comment on above: Performed By: #### C BC ####[facility] Yxfvclork[address] [place], [place] [address]Dr. Chrissy Frazier LYMPH # 2.5 103/ul Normal 1.2-3.8 [facility] Comment on above: Performed By: #### C BC ####[facility] Sxpxjdjnmp033[address] [place], [place] [address]Dr. Chrissy Frazier Lymphocytes/100 WBC (Bld) 16.7 % Critically low 20.5-60.0 [facility] Comment on above: Performed By: #### C BC ####[facility] Yqbthxpils[address] [place] [address]DrNancy Frazier MANUAL DIFF REQ NO Normal [facility] Comment on above: Performed By: #### C BC ####[facility] Oyvjmevxvw20[address] [place] [address]DrNancy Frazier MCH (RBC) [Entitic mass] 28.1 pg Normal 25.9-34.0 [facility] Comment on above: Performed By: #### C BC ####[facility] Xhugzxrzmz8[address] [place], [place] [address]DrNancy Frazier MCHC (RBC) [Mass/Vol] 34.2 g/dL Normal 29.9-35.2 [facility] Comment on above: Performed By: #### C BC ####[facility] Rrmfaluccy8[address] [place], [place] [address]DrNancy Frazier MCV (RBC) [Entitic vol] 82.2 fL Normal 80.0-94.0 [facility] Comment on above: Performed By: #### C BC ####[facility] Afrcyoalss[address] [place], [place] [address]DrNancy Frazier MONO # 1.0 103/ul Critically high 0.3-0.8 [facility] Comment on above: Performed By: #### C BC ####[facility] Hgxuxtlzcl27[address] [place], [place] [address]DrNancy Frazier Monocytes/100 WBC (Bld) 6.7 % Normal 1.7-12.0 [facility] Comment on above: Performed By: #### C BC ####[facility] Rrmdbbatar49[address] [place], [place] [address]DrNancy Frazier NEUT # 11.3 103/ul Critically high 1.4-6.5 [facility] Comment on above: Performed By: #### C BC ####[facility] Umjqtrduvz022[address] [place], [place] [address]DrNancy Frazier Neutrophils/100 WBC (Bld) 75.1 % Critically high 43.0-75.0 [facility] Comment on above: Performed By: #### C BC ####[facility] Vfsnrpnplk035[address] [place] [id number]. Chrissy Frazier Platelet mean volume (Bld) [Entitic vol] 10.6 fL Normal 9.5-13.5 [facility] Comment on above: Performed By: #### C BC ####[facility] Vacujubfrd[address] [place] [id number]. Chrissy Frazier PLT 416 103/ul Normal 150-450 [facility] Comment on above: Performed By: #### C BC ####[facility] Dqtjclviyo2789 [place] [phone]. Chrissy Frazier RBC 5.83 106/ul Normal 4.70-6.10 [facility] Comment on above: Performed By: #### C BC ####[facility] Uaraaodren78[address] [place] [phone]. Chrissy Frazier WBC 15.0 103/ul Critically high 4.0-11.0 [facility] Comment on above: Performed By: #### C BC ####[facility] Vtaadsvvmv1389 [place] [id number]. Chrissy Frazier [facility]on 06-21 SARS-CoV-2 (COVID-19) RNA RHIANNON+probe Ql (Unsp spec) Not detected Normal NOT DETECTED [facility] Comment on above: Result [...] for this test is supported by the Corporate Lawyer of Health and Human Service's declaration that [...] used). Performed By: #### C VDTBH ####[facility] Ymgjdnollp[address] [place] [address]Dr. Chrissy Frazier LIPASEon 07-06-2022 Lipase [Catalytic activity/Vol] 130.0 U/L Normal 73.0-393.0 [facility] Comment on above: Performed By: #### C OSWALD ADAIR, TERRENCE ####[facility] Eqsrhargwv[address] [place] [address]Dr. Chrissy Frazier PROF 14(COMP METB)on 022 Albumin [Mass/Vol] 4.4 g/dL Normal 3.4-5.0 [facility] Comment on above: Performed By: #### C MANA LIPA, TERRENCE ####[facility] Nlqudlwvfv50[address] [place], [place] [address]Dr. Chrissy Frazier Albumin/Globulin [Mass ratio] 1.1 {ratio} Normal [facility] Comment on above: Performed By: #### C OSWALD ADAIR TERRENCE ####[facility] Xhawwefbjg2716[address] [place], [place] [address]Dr. Chrissy Frazier ALP [Catalytic activity/Vol] 83 U/L Normal 46-116 [facility] Comment on above: Performed By: #### C MANA LIPA, TERRENCE ####[facility] Fhnxirfjws[address] [place] [address]Dr. Chrissy Frazier ALT [Catalytic activity/Vol] 107 U/L Critically high 16-63 [facility] Comment on above: Performed By: #### C TESSA ADAIRA, TERRENCE ####[facility] Jxhiefodsh[address] [place] [address]Dr. Chrissy Frazier Anion gap [Moles/Vol] 20.5 mmol/L Normal [facility] Comment on above: Performed By: #### C MANA LIPA, TERRENCE ####[facility] Tiorwkozmi1423[address] [place], [place] [address]Dr. Chrissy Frazier AST [Catalytic activity/Vol] 46 U/L Critically high 15-37 [facility] Comment on above: Performed By: #### C OSWALD ADAIR, TERRENCE ####[facility] Wvwecazktd5[address] [place] [address]Dr. Chrissy Frazier Bilirubin [Mass/Vol] 1.2 mg/dL Critically high 0.2-1.0 [facility] Comment on above: Performed By: #### C TESSA ADAIRA, TERRENCE ####[facility] Arzcojjgtu[address] [place], [place] [address]Dr. Chrissy Frazier Calcium [Mass/Vol] 9.1 mg/dL Normal 8.5-10.1 The [facility] Comment on above: Performed By: #### C MANA LIPA, TERRENCE ####[facility] Wxslkuhmso8228[address] [place], [place] [address]Dr. Chrissy Frazier Chloride [Moles/Vol] 100 mmol/L Normal 98-107 [facility] Comment on above: Performed By: #### C TESSA ADAIRA, TERRENCE ####[facility] Ifkvfqumbr9[address] [place], [place] [address]Dr. Chrissy Frazier CO2 [Moles/Vol] 18.6 mmol/L Critically low 21.0-32.0 [facility] Comment on above: Performed By: #### C MANA LIPA, TERRENCE ####[facility] Ftxdgbqdyd[address] [place], [place] [address]Dr. Chrissy Frazier Creatinine [Mass/Vol] 1.44 mg/dL Critically high 0.70-1.30 [facility] Comment on above: Performed By: #### C MANA LIPA, TERRENCE ####[facility] Zaidvufvsr668[address] [place], [place] [address]Dr. Chrissy Frazier EGFR-AF STATELESS >60 Normal >=60 [facility] Comment on above: Performed By: #### C MP, LIPA, TERRENCE ####[facility] Bjyuvmeyoe7155[address] [place], [place] [address]Dr. Chrissy Frazier EGFR-NON AF STATELESS 57 mL/min/1.73m2 Critically low >=60 [facility] Comment on above: Performed By: #### C MANA LIPA, TERRENCE ####[facility] Nghlhsslfb[address] [place] [address]Dr. Chrissy Frazier Globulin (S) [Mass/Vol] 4.0 g/dL Normal [facility] Comment on above: Performed By: #### C MANA LIPA, TERRENCE ####[facility] Ovoyerzyal[address] [place] [address]Dr. Chrissy Frazier Glucose [Mass/Vol] 117 mg/dL Critically high 74-106 [facility] Comment on above: Performed By: #### C MANA LIPA, TERRENCE ####[facility] Qfsrnlrqpw[address] [place], [place] [address]Dr. Chrissy Frazier Potassium [Moles/Vol] 3.1 mmol/L Critically low 3.5-5.1 [facility] Comment on above: Performed By: #### C MANA LIPA, TERRENCE ####[facility] Mrogragyfa0167[address] [place], [place] [address]Dr. Chrissy Frazier Protein [Mass/Vol] 8.4 g/dL Critically high 6.4-8.2 [facility] Comment on above: Performed By: #### C TESSA ADAIRA, TERRENCE ####[facility] Vwqguvjtnp[address] [place], [place] [address]Dr. Chrissy Frazier Sodium [Moles/Vol] 136 mmol/L Normal 136-145 [facility] Comment on above: Performed By: #### C MANA LIPA, TERRENCE ####[facility] Vzfuxkrlth488[address] [place], [place] [address]Dr. Chrissy Frazier Urea nitrogen [Mass/Vol] 15.0 mg/dL Normal 7.0-18.0 [facility] Comment on above: Performed By: #### C MANA LIPA, TERRENCE ####[facility] Fkuixzbxab5478[address] [place], [place] [address]Dr. Chrissy Frazier Urea nitrogen/Creatinine [Mass ratio] 10.4 mg/mg Normal [facility] Comment on above: Performed By: #### C MANA LIPA, TERRENCE ####[facility] Xhmourmsxb[address] [place] [address]Dr. Chrissy Freddie CBC AUTO DIFFon 07-05-2022 BASO # 0.0 103/ul Normal 0.0-0.1 [facility] Comment on above: Performed By: #### C BC ####[facility] G[address]quqzm[address] [place], [place] [address]Dr. Chrissy Frazier Basophils/100 WBC (Bld) 0.3 % Normal 0.2-2.0 [facility] Comment on above: Performed By: #### C BC ####[facility] Pwsbtknxbm[address] [place], [place] [address]Dr. Chrissy Frazier EO # 0.2 103/ul Normal 0.0-0.7 [facility] Comment on above: Performed By: #### C BC ####[facility] Rjqmkailrw225[address] [place], [place] [address]Dr. Chrissy Frazier Eosinophils/100 WBC (Bld) 1.5 % Normal 0.9-7.0 [facility] Comment on above: Performed By: #### C BC ####[facility] Cbfgqpxjic[address] [place], [place] [address]Dr. Tishrowan Frazier Erythrocyte distribution width (RBC) [Ratio] 13.9 % Normal 11.0-15.0 [facility] Comment on above: Performed By: #### C BC ####[facility] Wfxpyvpxll7[address] [place], [place] [address]Dr. Chrissy Frazier Hematocrit (Bld) [Volume fraction] 44.5 % Normal 42.0-54.0 [facility] Comment on above: Performed By: #### C BC ####[facility] Cuswkptagm[address] [place], [place] [address]Dr. Chrissy Frazier Hemoglobin (Bld) [Mass/Vol] 14.8 g/dL Normal 14.0-18.0 [facility] Comment on above: Performed By: #### C BC ####[facility] Crkrndgtpc11[address] [place], [place] [address]Dr. Chrissy Frazier IG # 0.05 10e3/ul Critically high 0.00-0.03 [facility] Comment on above: Performed By: #### C BC ####[facility] Kxxdaazwlu9[address] [place] [id number]. Chrissy Frazier IG % 0.4 % Normal 0.0-0.5 [facility] Comment on above: Performed By: #### C BC ####[facility] Sesjiqwcba9676 [place] [phone]. Chrissy Frazier LYMPH # 3.3 103/ul Normal 1.2-3.8 [facility] Comment on above: Performed By: #### C BC ####[facility] Qagwvzjkrm1767 [place] [phone]. Chrissy Frazier Lymphocytes/100 WBC (Bld) 29.1 % Normal 20.5-60.0 [facility] Comment on above: Performed By: #### C BC ####[facility] Iypsdriwyf[address] [place] [address]Dr. Chrissy Frazier MANUAL DIFF REQ NO Normal [facility] Comment on above: Performed By: #### C BC ####[facility] Loqutsyoli3587 [place] [phone]. Chrissy Frazier MCH (RBC) [Entitic mass] 28.2 pg Normal 25.9-34.0 [facility] Comment on above: Performed By: #### C BC ####[facility] Agjqqfqyqk1094 [place] [phone]. Chrissy Frazier MCHC (RBC) [Mass/Vol] 33.3 g/dL Normal 29.9-35.2 [facility] Comment on above: Performed By: #### C BC ####[facility] Xavcalgyxn5026 [place] [phone]. Chrissy Frazier MCV (RBC) [Entitic vol] 84.9 fL Normal 80.0-94.0 [facility] Comment on above: Performed By: #### C BC ####[facility] Jibczdrcen43[address] [place] [phone]. Chrissy Freddie MONO # 0.6 103/ul Normal 0.3-0.8 [facility] Comment on above: Performed By: #### C BC ####[facility] Twqypqzxjt1745 [place] [phone]. Chrissy Frazier Monocytes/100 WBC (Bld) 5.4 % Normal 1.7-12.0 [facility] Comment on above: Performed By: #### C BC ####[facility] Rgkmdfyaik1648 [place] [phone]. Chrissy Frazier NEUT # 7.1 103/ul Critically high 1.4-6.5 [facility] Comment on above: Performed By: #### C BC ####[facility] Rvaatuyfna4648 [place] [phone]. Chrissy Frazier Neutrophils/100 WBC (Bld) 63.3 % Normal 43.0-75.0 [facility] Comment on above: Performed By: #### C BC ####[facility] Drjhwvmlfn9[address] [place] [address]Dr. Chrissy Frazier Platelet mean volume (Bld) [Entitic vol] 9.9 fL Normal 9.5-13.5 [facility] Comment on above: Performed By: #### C BC ####[facility] Dyadjivdwy[address] [place] [address]Dr. Chrissy Freddie PLT 339 103/ul Normal 150-450 [facility] Comment on above: Performed By: #### C BC ####[facility] Itfeuozxvy1798 [place] [phone]. Tishrowan Frazier RBC 5.24 106/ul Normal 4.70-6.10 [facility] Comment on above: Performed By: #### C BC ####[facility] Tvrmptkgji88[address] [place] [phone]. Chrissy Frazier WBC 11.2 103/ul Critically high 4.0-11.0 [facility] Comment on above: Performed By: #### C BC ####[facility] Nbiyejmnnb[address] [place] [address]Dr. Chrissy Frazier PROF 14(COMP METB)on 022 Albumin [Mass/Vol] 3.8 g/dL Normal 3.4-5.0 [facility] Comment on above: Performed By: #### C MP ####[facility] Lwdlblefck4502 [place] [phone]. Chrissy Freddie Albumin/Globulin [Mass ratio] 1.1 {ratio} Normal [facility] Comment on above: Performed By: #### C MP ####[facility] Imamyittez8615 [place] [phone]. Chrissy Freddie ALP [Catalytic activity/Vol] 67 U/L Normal 46-116 [facility] Comment on above: Performed By: #### C MP ####[facility] Auarkawwir[address] [place] [address]Dr. Chrissy Freddie ALT [Catalytic activity/Vol] 75 U/L Critically high 16-63 [facility] Comment on above: Performed By: #### C MP ####[facility] Zleorlutzl[address] [place] [address]Dr. Chrissy Frazier Anion gap [Moles/Vol] 14.3 mmol/L Normal [facility] Comment on above: Performed By: #### C MP ####[facility] Gqhocoouzk87[address] [place] [address]Dr. Chrissy Freddie AST [Catalytic activity/Vol] 40 U/L Critically high 15-37 [facility] Comment on above: Performed By: #### C MP ####[facility] Kqgjeiteyb4063 [place] [address]Dr. Chrissy Frazier Bilirubin [Mass/Vol] 0.9 mg/dL Normal 0.2-1.0 [facility] Comment on above: Performed By: #### C MP ####[facility] Ytnyeaagfs8057 [place] [phone]. Chrissy Frazier Calcium [Mass/Vol] 8.4 mg/dL Critically low 8.5-10.1 [facility] Comment on above: Performed By: #### C MP ####[facility] Ghzeaedcpf5[address] [place] [address]Dr. Chrissy Frazier Chloride [Moles/Vol] 104 mmol/L Normal 98-107 [facility] Comment on above: Performed By: #### C MP ####[facility] Nbbgtzdcnk2759 [place] [phone]. Chrissy Frazier CO2 [Moles/Vol] 24.1 mmol/L Normal 21.0-32.0 [facility] Comment on above: Performed By: #### C MP ####[facility] Yzvathdkua9211 [place] [phone]. Chrissy Frazier Creatinine [Mass/Vol] 1.11 mg/dL Normal 0.70-1.30 [facility] Comment on above: Performed By: #### C MP ####[facility] Vxohvkaeeb5465 [place] [phone]. Chrissy Frazier EGFR-AF STATELESS >60 Normal >=60 [facility] Comment on above: Performed By: #### C MP ####[facility] Bvdddelhyx9[address] [place] [address]Dr. Chrissy Frazier EGFR-NON AF STATELESS >60 Normal >=60 [facility] Comment on above: Performed By: #### C MP ####[facility] Vfcprwyyte93[address] [place], [place] [address]Dr. Chrissy Frazier Globulin (S) [Mass/Vol] 3.6 g/dL Normal [facility] Comment on above: Performed By: #### C MP ####[facility] Glqxtwzubq939[address] [place], [place] [address]Dr. Chrissy Frazier Glucose [Mass/Vol] 89 mg/dL Normal 74-106 [facility] Comment on above: Performed By: #### C MP ####[facility] Izxjlkcffq7184 [place] [address]Dr. Chrissy Frazier Potassium [Moles/Vol] 3.4 mmol/L Critically low 3.5-5.1 [facility] Comment on above: Performed By: #### C MP ####[facility] Vfxbwlnbkc[address] [place], [place] [address]Dr. Chrissy Freddie Protein [Mass/Vol] 7.4 g/dL Normal 6.4-8.2 [facility] Comment on above: Performed By: #### C MP ####[facility] Wdgkqxvlkp60[address] [place], [place] [address]Dr. Chrissy Frazier Sodium [Moles/Vol] 139 mmol/L Normal 136-145 [facility] Comment on above: Performed By: #### C MP ####[facility] Iwctwfykko8[address] [place], [place] [address]Dr. Chrissy Frazier Urea nitrogen [Mass/Vol] 10.0 mg/dL Normal 7.0-18.0 [facility] Comment on above: Performed By: #### C MP ####[facility] Ptiradsxsp6[address] [place], [place] [address]Dr. Chrissy Frazier Urea nitrogen/Creatinine [Mass ratio] 9.0 mg/mg Normal [facility] Comment on above: Performed By: #### C MP ####[facility] Fjfzjytohm[address] [place], [place] [address]Dr. Chrissy Frazier CBC AUTO DIFFon 07-04-2022 BASO # 0.0 103/ul Normal 0.0-0.1 [facility] Comment on above: Performed By: #### C BC ####[facility] Boahjqrruu90[address] [place], [place] [address]Dr. Chrissy Freddie Basophils/100 WBC (Bld) 0.2 % Normal 0.2-2.0 [facility] Comment on above: Performed By: #### C BC ####[facility] Sydemwkxyz17[address] [place], [place] [address]Dr. Chrissy Frazier EO # 0.0 103/ul Normal 0.0-0.7 [facility] Comment on above: Performed By: #### C BC ####[facility] Zggwjneebj00[address] [place], [place] [address]Dr. Chrissy Freddie Eosinophils/100 WBC (Bld) 0.3 % Critically low 0.9-7.0 [facility] Comment on above: Performed By: #### C BC ####[facility] Uhzfqenjeu187[address] [place], [place] [address]Dr. Chrissy Frazier Erythrocyte distribution width (RBC) [Ratio] 14.0 % Normal 11.0-15.0 [facility] Comment on above: Performed By: #### C BC ####[facility] Gvadqaxtfc[address] [place] [address]Dr. Chrissy Frazier Hematocrit (Bld) [Volume fraction] 43.2 % Normal 42.0-54.0 [facility] Comment on above: Performed By: #### C BC ####[facility] Bhykbhkwhf[address] [place] [address]Dr. Chrissy Frazier Hemoglobin (Bld) [Mass/Vol] 14.6 g/dL Normal 14.0-18.0 [facility] Comment on above: Performed By: #### C BC ####[facility] Lpfczzcvby[address] [place] [address]Dr. Tishrowan Freddie IG # 0.11 10e3/ul Critically high 0.00-0.03 [facility] Comment on above: Performed By: #### C BC ####[facility] Afmryanpxx9[address] [place] [address]Dr. Chrissy Frazier IG % 0.8 % Critically high 0.0-0.5 [facility] Comment on above: Performed By: #### C BC ####[facility] Sxszgmozgc750[address] [place] [address]Dr. Chrissy Frazier LYMPH # 2.6 103/ul Normal 1.2-3.8 [facility] Comment on above: Performed By: #### C BC ####[facility] Rekejmldzp[address] [place] [address]Dr. Tishrowan Frazier Lymphocytes/100 WBC (Bld) 18.3 % Critically low 20.5-60.0 [facility] Comment on above: Performed By: #### C BC ####[facility] Vhctuonksm8164 [place] [address]Dr. Tishrowan Frazier MANUAL DIFF REQ NO Normal [facility] Comment on above: Performed By: #### C BC ####[facility] Yzgpqihjci[address] [place], [place] [address]Dr. Chrissy Frazier MCH (RBC) [Entitic mass] 28.1 pg Normal 25.9-34.0 [facility] Comment on above: Performed By: #### C BC ####[facility] Mnvyfbtqfk7609 [place] [phone]. Chrissy Frazier MCHC (RBC) [Mass/Vol] 33.8 g/dL Normal 29.9-35.2 [facility] Comment on above: Performed By: #### C BC ####[facility] Knxrhmqwsu6156 [place] [phone]. Chrissy Frazier MCV (RBC) [Entitic vol] 83.2 fL Normal 80.0-94.0 [facility] Comment on above: Performed By: #### C BC ####[facility] Kwgjptahdh7694 [place] [phone]. Chrissy Frazier MONO # 0.7 103/ul Normal 0.3-0.8 [facility] Comment on above: Performed By: #### C BC ####[facility] Zhbjmdvygf1687 [place] [address]Dr. Tishrowan Frazier Monocytes/100 WBC (Bld) 5.3 % Normal 1.7-12.0 [facility] Comment on above: Performed By: #### C BC ####[facility] Wfsnjkchdu3876 [place] [phone]. Chrissy Frazier NEUT # 10.5 103/ul Critically high 1.4-6.5 [facility] Comment on above: Performed By: #### C BC ####[facility] Atoopildyu2514 [place] [phone]. Chrissy Frazier Neutrophils/100 WBC (Bld) 75.1 % Critically high 43.0-75.0 [facility] Comment on above: Performed By: #### C BC ####[facility] Axdcaxeydh0665 [place] [phone]. Chrissy Frazier Platelet mean volume (Bld) [Entitic vol] 10.6 fL Normal 9.5-13.5 [facility] Comment on above: Performed By: #### C BC ####[facility] Jhkkzrnuqb0302 [place] [id number]. Chrissy Freddie PLT 309 103/ul Normal 150-450 [facility] Comment on above: Performed By: #### C BC ####[facility] [facility] [address] [place] [address]Dr. Chrissy Frazier RBC 5.19 106/ul Normal 4.70-6.10 [facility] Comment on above: Performed By: #### C BC ####[facility] [address]ksze[address] [address]Dr. Chrissy Frazier WBC 14.0 103/ul Critically high 4.0-11.0 [facility] Comment on above: Performed By: #### C BC ####[facility] Kkv[address]xet[address] [address]Dr. Chrissy Frazier PROF 14(COMP METB)on 022 Albumin [Mass/Vol] 4.0 g/dL Normal 3.4-5.0 [facility] Comment on above: Performed By: #### C MP ####[facility] Hrpdnhaocm[address] [place], [place] [address]Dr. Chrissy Frazier Albumin/Globulin [Mass ratio] 1.1 {ratio} Normal [facility] Comment on above: Performed By: #### C MP ####[facility] Blxjzfzbpi[address] [place], [place] [address]Dr. Chrissy Frazier ALP [Catalytic activity/Vol] 67 U/L Normal 46-116 [facility] Comment on above: Performed By: #### C MP ####[facility] Ntzfwrqktb[address] [place], [place] [address]Dr. Chrissy Frazier ALT [Catalytic activity/Vol] 40 U/L Normal 16-63 [facility] Comment on above: Performed By: #### C MP ####[facility] Dfiwscyfdi44[address] [place], [place] [address]Dr. Chrissy Frazier Anion gap [Moles/Vol] 17.7 mmol/L Normal [facility] Comment on above: Performed By: #### C MP ####[facility] Qexgpjbcat49[address] [place], [place] [address]Dr. Chrissy Frazier AST [Catalytic activity/Vol] 27 U/L Normal 15-37 [facility] Comment on above: Performed By: #### C MP ####[facility] Mtfsolsbbn78[address] [place], [place] [address]Dr. Chrissy Frazier Bilirubin [Mass/Vol] 0.8 mg/dL Normal 0.2-1.0 [facility] Comment on above: Performed By: #### C MP ####[facility] [address]ms[address] [address]Dr. Chrissy Frazier Calcium [Mass/Vol] 8.8 mg/dL Normal 8.5-10.1 [facility] Comment on above: Performed By: #### C MP ####[facility] [address] [address]Dr. Chrissy Frazier Chloride [Moles/Vol] 105 mmol/L Normal 98-107 [facility] Comment on above: Performed By: #### C MP ####[facility] Ephhfflmne[address] [place] [address]Dr. Chrissy Frazier CO2 [Moles/Vol] 16.5 mmol/L Critically low 21.0-32.0 [facility] Comment on above: Performed By: #### C MP ####[facility] Lanqhnkezd[address] [place], [place] [address]Dr. Chrissy Frazier Creatinine [Mass/Vol] 1.02 mg/dL Normal 0.70-1.30 [facility] Comment on above: Performed By: #### C MP ####[facility] Nqrxwgqlxj70[address] [place], [place] [address]Dr. Chrissy Frazier EGFR-AF STATELESS >60 Normal >=60 [facility] Comment on above: Performed By: #### C MP ####[facility] [address] [address]Dr. Chrissy Freddie EGFR-NON AF STATELESS >60 Normal >=60 [facility] Comment on above: Performed By: #### C MP ####[facility] Uqyjjassmz4[address] [place], [place] [address]Dr. Tishrowan Freddie Globulin (S) [Mass/Vol] 3.7 g/dL Normal [facility] Comment on above: Performed By: #### C MP ####[facility] [address]as[address]ac[address] [address]Dr. Tishrowan Frazier Glucose [Mass/Vol] 106 mg/dL Normal 74-106 The [facility] Comment on above: Performed By: #### C MP ####[facility] Qdxi[address]ljnz[address] [place] [address] [address]Dr. Chrissy Freddie Potassium [Moles/Vol] 3.2 mmol/L Critically low 3.5-5.1 [facility] Comment on above: Performed By: #### C MP ####[facility] Eipebakffv8004[address] [place], [place] [address]Dr. Chrissy Freddie Protein [Mass/Vol] 7.7 g/dL Normal 6.4-8.2 The [facility] Comment on above: Performed By: #### C MP ####[facility] Tmwpypmtkv8127[address] [place], [place] [address]Dr. Chrissy Frazier Sodium [Moles/Vol] 136 mmol/L Normal 136-145 [facility] Comment on above: Performed By: #### C MP ####[facility] Qjikuwkwzm4947[address] [place], [place] [address]Dr. Chrissy Freddie Urea nitrogen [Mass/Vol] 10.0 mg/dL Normal 7.0-18.0 [facility] Comment on above: Performed By: #### C MP ####[facility] Uuiyhksvog8727[address] [place], [place] [address]Dr. Tishrowan Freddie Urea nitrogen/Creatinine [Mass ratio] 9.8 mg/mg Normal [facility] Comment on above: Performed By: #### C MP ####[facility] Xeponesxuh[address] [place], [place] [address]Dr. Chrissy Freddie CBC AUTO DIFFon 07-03-2022 BASO # 0.1 103/ul Normal 0.0-0.1 [facility] Comment on above: Performed By: #### C BC ####[facility] Hswxtcwyuj7569[address] [place], [place] [address]Dr. Chrissy Frazier Basophils/100 WBC (Bld) 0.5 % Normal 0.2-2.0 [facility] Comment on above: Performed By: #### C BC ####[facility] Modyzjyoyq7[address] [place], [place] [address]Dr. Chrissy Frazier EO # 0.1 103/ul Normal 0.0-0.7 [facility] Comment on above: Performed By: #### C BC ####[facility] [address] [place] [address]Dr. Chrissy Frazier Eosinophils/100 WBC (Bld) 1.3 % Normal 0.9-7.0 [facility] Comment on above: Performed By: #### C BC ####[facility] [address]rm[address] [address]Dr. Chrissy Frazier Erythrocyte distribution width (RBC) [Ratio] 14.2 % Normal 11.0-15.0 [facility] Comment on above: Performed By: #### C BC ####[facility] Cryhzgptfa1227[address] [place], [place] [address]Dr. Chrissy Frazier Hematocrit (Bld) [Volume fraction] 41.7 % Critically low 42.0-54.0 [facility] Comment on above: Performed By: #### C BC ####[facility] Mgykyrkeug9[address] [place], [place] [address]Dr. Chrissy Frazier Hemoglobin (Bld) [Mass/Vol] 13.6 g/dL Critically low 14.0-18.0 [facility] Comment on above: Performed By: #### C BC ####[facility] Qvagmwbwpm18[address] [place], [place] [address]Dr. Chrissy Frazier IG # 0.04 10e3/ul Critically high 0.00-0.03 [facility] Comment on above: Performed By: #### C BC ####[facility] Jrbusmbyxn[address] [place] [address]Dr. Chrissy Frazier IG % 0.4 % Normal 0.0-0.5 [facility] Comment on above: Performed By: #### C BC ####[facility] Vvnyjfvujt09[address] [place], [place] [address]Dr. Chrissy Frazier LYMPH # 3.5 103/ul Normal 1.2-3.8 [facility] Comment on above: Performed By: #### C BC ####[facility] Vvqztsdlos9[address] [place], [place] [address]Dr. Chrissy Frazier Lymphocytes/100 WBC (Bld) 33.5 % Normal 20.5-60.0 [facility] Comment on above: Performed By: #### C BC ####[facility] [address] [address]Dr. Chrissy Frazier MANUAL DIFF REQ NO Normal [facility] Comment on above: Performed By: #### C BC ####[facility] [address]cv[address] [address]Dr. Chrissy Frazier MCH (RBC) [Entitic mass] 27.9 pg Normal 25.9-34.0 [facility] Comment on above: Performed By: #### C BC ####[facility] [address] [place] [address]Dr. Chrissy Frazier MCHC (RBC) [Mass/Vol] 32.6 g/dL Normal 29.9-35.2 [facility] Comment on above: Performed By: #### C BC ####[facility] Sacsvpavki[address] [address]Dr. Chrissy Frazier MCV (RBC) [Entitic vol] 85.6 fL Normal 80.0-94.0 [facility] Comment on above: Performed By: #### C BC ####[facility] [address]ov[address] [place] [address]Dr. Chrissy Frazier MONO # 0.7 103/ul Normal 0.3-0.8 [facility] Comment on above: Performed By: #### C BC ####[facility] [address] [address]Dr. Chrissy Frazier Monocytes/100 WBC (Bld) 6.5 % Normal 1.7-12.0 [facility] Comment on above: Performed By: #### C BC ####[facility] Tlc[address]acfos[address] [address]DrNancy Frazier NEUT # 6.1 103/ul Normal 1.4-6.5 [facility] Comment on above: Performed By: #### C BC ####[facility] Fkgmryofzz257[address] [place], [place] [address]Dr. Chrissy Frazier Neutrophils/100 WBC (Bld) 57.8 % Normal 43.0-75.0 [facility] Comment on above: Performed By: #### C BC ####[facility] [address] [address]Dr. Tishrowan Freddie Platelet mean volume (Bld) [Entitic vol] 10.4 fL Normal 9.5-13.5 [facility] Comment on above: Performed By: #### C BC ####[facility] [address]xwpgc[address] [place] [address]DrNancy Frazier PLT 288 103/ul Normal 150-450 [facility] Comment on above: Performed By: #### C BC ####[facility] Iukvynvmqs[address] [place] [address]DrNancy Frazier RBC 4.87 106/ul Normal 4.70-6.10 [facility] Comment on above: Performed By: #### C BC ####[facility] Lpkwtauyic8766[address] [place], [place] [address]DrNancy Frazier WBC 10.5 103/ul Normal 4.0-11.0 [facility] Comment on above: Performed By: #### C BC ####[facility] Mxtugstvgf6069[address] [place], [place] [address]DrNancy Frazier PROF 14(COMP METB)on 022 Albumin [Mass/Vol] 3.6 g/dL Normal 3.4-5.0 [facility] Comment on above: Performed By: #### C MP ####[facility] Yuz[address]ufxuva[address] [place] [address]DrNancy Frazier Albumin/Globulin [Mass ratio] 1.1 {ratio} Normal [facility] Comment on above: Performed By: #### C MP ####[facility] [address]wbftwh[address] [place] [address]DrNancy Frazier ALP [Catalytic activity/Vol] 58 U/L Normal 46-116 [facility] Comment on above: Performed By: #### C MP ####[facility] Beiydkyezk2533[address] [place], [place] [address]Dr. Yirowan Frazier ALT [Catalytic activity/Vol] 30 U/L Normal 16-63 [facility] Comment on above: Performed By: #### C MP ####[facility] Siliespzxf[address] [place] [address]Dr. Tishrowan Freddie Anion gap [Moles/Vol] 14.5 mmol/L Normal [facility] Comment on above: Performed By: #### C MP ####[facility] Frcblzbnvw0926[address] [place], [place] [address]Dr. Chrissy Freddie AST [Catalytic activity/Vol] 17 U/L Normal 15-37 [facility] Comment on above: Performed By: #### C MP ####[facility] Yogwvbcwef6517[address] [place], [place] [address]Dr. Chrissy Frazier Bilirubin [Mass/Vol] 0.6 mg/dL Normal 0.2-1.0 [facility] Comment on above: Performed By: #### C MP ####[facility] Nqnxncntlm9099[address] [place], [place] [address]Dr. Chrissy Frazier Calcium [Mass/Vol] 8.4 mg/dL Critically low 8.5-10.1 [facility] Comment on above: Performed By: #### C MP ####[facility] Igsjphazdq7836[address] [place], [place] [address]Dr. Chrissy Frazier Chloride [Moles/Vol] 106 mmol/L Normal 98-107 [facility] Comment on above: Performed By: #### C MP ####[facility] Rajcjdmwgj0067[address] [place], [place] [address]Dr. Chrissy Frazier CO2 [Moles/Vol] 22.6 mmol/L Normal 21.0-32.0 [facility] Comment on above: Performed By: #### C MP ####[facility] Ipqenfmvzx136[address] [place], [place] [address]Dr. Chrissy Frazier Creatinine [Mass/Vol] 1.08 mg/dL Normal 0.70-1.30 [facility] Comment on above: Performed By: #### C MP ####[facility] Xmrrgzwfvj8[address] [place], [place] [address]Dr. Chrissy Frazier EGFR-AF STATELESS >60 Normal >=60 [facility] Comment on above: Performed By: #### C MP ####[facility] Uoednptjdb93[address] [place], [place] [address]Jl. Chrissy Frazier EGFR-NON AF STATELESS >60 Normal >=60 [facility] Comment on above: Performed By: #### C MP ####[facility] Qrjlkblilh0539 [place], [place] [address]Py. Chrissy Frazier Globulin (S) [Mass/Vol] 3.3 g/dL Normal [facility] Comment on above: Performed By: #### C MP ####[facility] [address]qli[address] [place] [id number]. Chrissy Frazier Glucose [Mass/Vol] 94 mg/dL Normal 74-106 [facility] Comment on above: Performed By: #### C MP ####[facility] Woezkstkxj50[address] [place] [id number]. Chrissy Frazier Potassium [Moles/Vol] 3.1 mmol/L Critically low 3.5-5.1 [facility] Comment on above: Performed By: #### C MP ####[facility] Yqvjhftxxa20[address] [place] [id number]. Chrissy Frazier Protein [Mass/Vol] 6.9 g/dL Normal 6.4-8.2 [facility] Comment on above: Performed By: #### C MP ####[facility] Hbietfdxmw4[address] [place] [id number]. Chrissy Frazier Sodium [Moles/Vol] 140 mmol/L Normal 136-145 [facility] Comment on above: Performed By: #### C MP ####[facility] Ygnhyryegh[address] [place] [id number]. Chrissy Frazier Urea nitrogen [Mass/Vol] 10.0 mg/dL Normal 7.0-18.0 [facility] Comment on above: Performed By: #### C MP ####[facility] Bum[address]lylh[address] [place] [id number]. Chrissy Frazier Urea nitrogen/Creatinine [Mass ratio] 9.3 mg/mg Normal [facility] Comment on above: Performed By: #### C MP ####[facility] Xdqsisamsi025[address] [place], [place] [address]Dr. Chrissy Frazier CBC AUTO DIFFon 07-02-2022 BASO # 0.0 103/ul Normal 0.0-0.1 [facility] Comment on above: Performed By: #### C BC ####[facility] Famkujbfnn0709[address] [place], [place] [address]Dr. Chrissy Frazier Basophils/100 WBC (Bld) 0.2 % Normal 0.2-2.0 [facility] Comment on above: Performed By: #### C BC ####[facility] Hzryhkhmxz9345[address] [place], [place] [address]Dr. Chrissy Frazier EO # 0.0 103/ul Normal 0.0-0.7 [facility] Comment on above: Performed By: #### C BC ####[facility] Jnmuwoohox5620[address] [place], [place] [address]Dr. Chrissy Frazier Eosinophils/100 WBC (Bld) 0.0 % Critically low 0.9-7.0 [facility] Comment on above: Performed By: #### C BC ####[facility] Xvnfjczjoa6090[address] [place], [place] [address]Dr. Chrissy Frazier Erythrocyte distribution width (RBC) [Ratio] 14.2 % Normal 11.0-15.0 [facility] Comment on above: Performed By: #### C BC ####[facility] Hdbfmskilb2825[address] [place], [place] [address]Dr. Chrissy Frazier Hematocrit (Bld) [Volume fraction] 46.2 % Normal 42.0-54.0 [facility] Comment on above: Performed By: #### C BC ####[facility] Hsevevzgrd178[address] [place], [place] [address]Dr. Chrissy Frazier Hemoglobin (Bld) [Mass/Vol] 15.2 g/dL Normal 14.0-18.0 [facility] Comment on above: Performed By: #### C BC ####[facility] Mcjlsmqpvu1849[address] [place], [place] [address]Dr. Chrissy Frazier IG # 0.07 10e3/ul Critically high 0.00-0.03 [facility] Comment on above: Performed By: #### C BC ####[facility] Akkwmmhrpo[address] [place] [id number] Chrissy Freddie IG % 0.4 % Normal 0.0-0.5 [facility] Comment on above: Performed By: #### C BC ####[facility] Aegrlllnzq[address] [place] [address]DrNancy Chrissy Freddie LYMPH # 2.8 103/ul Normal 1.2-3.8 [facility] Comment on above: Performed By: #### C BC ####[facility] Dewgeqtpwx5379[address] [place], [place] [address]DrNancy Chrissy Freddie Lymphocytes/100 WBC (Bld) 16.7 % Critically low 20.5-60.0 [facility] Comment on above: Performed By: #### C BC ####[facility] Vppwfgjlwt28[address] [place], [place] [address]DrNancy Chrissy Freddie MANUAL DIFF REQ NO Normal [facility] Comment on above: Performed By: #### C BC ####[facility] Wnmozdftrb9140[address] [place], [place] [address]DrNancy Chrissy Freddie MCH (RBC) [Entitic mass] 28.3 pg Normal 25.9-34.0 [facility] Comment on above: Performed By: #### C BC ####[facility] Bvtqohyroy[address] [place] [address]DrNancy Chrissy Freddie MCHC (RBC) [Mass/Vol] 32.9 g/dL Normal 29.9-35.2 [facility] Comment on above: Performed By: #### C BC ####[facility] Ycfkyywxte8277[address] [place], [place] [address]DrNancy Winstonrowan Freddie MCV (RBC) [Entitic vol] 86.0 fL Normal 80.0-94.0 [facility] Comment on above: Performed By: #### C BC ####[facility] Vfhwsfuzii33[address] [place], [place] [address]DrNancy Frazier MONO # 0.9 103/ul Critically high 0.3-0.8 [facility] Comment on above: Performed By: #### C BC ####[facility] Iotkuqsfee5[address] [place] [id number]. Chrisys Frazier Monocytes/100 WBC (Bld) 5.1 % Normal 1.7-12.0 [facility] Comment on above: Performed By: #### C BC ####[facility] Pbtvruldfd0[address] [place] [id number]. Chrissy Frazier NEUT # 13.2 103/ul Critically high 1.4-6.5 [facility] Comment on above: Performed By: #### C BC ####[facility] Zingxmyymc[address] [place] [address]Dr. Chrissy Frazier Neutrophils/100 WBC (Bld) 77.6 % Critically high 43.0-75.0 [facility] Comment on above: Performed By: #### C BC ####[facility] Ryjwgpnaaj7984[address] [place], [place] [address]Dr. Chrissy Frazier Platelet mean volume (Bld) [Entitic vol] 11.6 fL Normal 9.5-13.5 [facility] Comment on above: Performed By: #### C BC ####[facility] Inhecopzde[address] [place] [address]Dr. Chrissy Frazier PLT 317 103/ul Normal 150-450 [facility] Comment on above: Performed By: #### C BC ####[facility] [address]fkgvmdjr[address] [place], [place] [address]Dr. Chrissy Frazier RBC 5.37 106/ul Normal 4.70-6.10 [facility] Comment on above: Performed By: #### C BC ####[facility] Ckqrkyqtwc07[address] [place] [phone]. Chrissy Frazier WBC 17.1 103/ul Critically high 4.0-11.0 [facility] Comment on above: Performed By: #### C BC ####[facility] Gtjwrmgifd45[address] [place] [id number]. Chrissy Frazier CT ABD/PELV W MARGOTHon 07-02-[address] ABD/PELV W CON Normal [facility] H PYLORI ANTIBODY IGGon 06-21 H. PYLORI IGG ABS 0.13 Index Value Normal 0.00-0.79 [facility] Comment on above: Result Comment: Nega tive <0.80 Equivocal 0.80 - 0.89 Positive >0.89 Performed By: #### H PYLLC ####[facility] Jnqrufrujr[address] [place] [address]Dr. Chrissy Frazier PROF 14(COMP METB)on 022 Albumin [Mass/Vol] 3.8 g/dL Normal 3.4-5.0 [facility] Comment on above: Performed By: #### C MP ####[facility] Musiirivxs01[address] [place], [place] [address]Dr. Chrissy Frazier Albumin/Globulin [Mass ratio] 1.0 {ratio} Normal [facility] Comment on above: Performed By: #### C MP ####[facility] Sgvlwasers689[address] [place], [place] [address]Dr. Chrissy Frazier ALP [Catalytic activity/Vol] 68 U/L Normal 46-116 [facility] Comment on above: Performed By: #### C MP ####[facility] Dsfjeowykm996[address] [place], [place] [address]Dr. Chrissy Frazier ALT [Catalytic activity/Vol] 34 U/L Normal 16-63 [facility] Comment on above: Performed By: #### C MP ####[facility] Kavrxhqwqt1848[address] [place], [place] [address]Dr. Chrissy Frazier Anion gap [Moles/Vol] 17.9 mmol/L Normal [facility] Comment on above: Performed By: #### C MP ####[facility] Xpzoatlrnj5807[address] [place], [place] [address]Dr. Chrissy Frazier AST [Catalytic activity/Vol] 24 U/L Normal 15-37 [facility] Comment on above: Performed By: #### C MP ####[facility] Tltgrgmyjg4388[address] [place], [place] [address]Dr. Chrissy Frazier Bilirubin [Mass/Vol] 0.6 mg/dL Normal 0.2-1.0 [facility] Comment on above: Performed By: #### C MP ####[facility] Lvklntfxse[address] [place] [address]Dr. Chrissy Frazier Calcium [Mass/Vol] 8.8 mg/dL Normal 8.5-10.1 [facility] Comment on above: Performed By: #### C MP ####[facility] Zqxdosiqkt3[address] [place] [address]Dr. Chrissy Frazier Chloride [Moles/Vol] 105 mmol/L Normal 98-107 [facility] Comment on above: Performed By: #### C MP ####[facility] Zglxaivcgb175[address] [place], [place] [address]Dr. Chrissy Frazier CO2 [Moles/Vol] 18.8 mmol/L Critically low 21.0-32.0 [facility] Comment on above: Performed By: #### C MP ####[facility] Pdvptwqohi[address] [place], [place] [address]Dr. Chrissy Frazier Creatinine [Mass/Vol] 1.15 mg/dL Normal 0.70-1.30 [facility] Comment on above: Performed By: #### C MP ####[facility] Yriaahytwo[address] [place], [place] [address]Dr. Chrissy Frazier EGFR-AF STATELESS >60 Normal >=60 [facility] Comment on above: Performed By: #### C MP ####[facility] Sderzibewl50[address] [place], [place] [address]Dr. Chrissy Freddie EGFR-NON AF STATELESS >60 Normal >=60 [facility] [facility] Comment on above: Performed By: #### C MP ####[facility] Hpshbtdbgm72[address] [place], [place] [address]Dr. Chrissy Freddie Globulin (S) [Mass/Vol] 3.9 g/dL Normal [facility] Comment on above: Performed By: #### C MP ####[facility] Ljbdykopwm449[address] [place], [place] [address]Dr. Chrissy Frazier Glucose [Mass/Vol] 124 mg/dL Critically high 74-106 [facility] Comment on above: Performed By: #### C MP ####[facility] [address]itvr[address] [place] [address]Dr. Chrissy Frazier Potassium [Moles/Vol] 3.7 mmol/L Normal 3.5-5.1 [facility] Comment on above: Performed By: #### C MP ####[facility] Nlbtysziqv44[address] [place] [address]Dr. Chrissy Freddie Protein [Mass/Vol] 7.7 g/dL Normal 6.4-8.2 [facility] Comment on above: Performed By: #### C MP ####[facility] Sybzzjlaie[address] [place], [place] [address]Dr. Tishrowan Frazier Sodium [Moles/Vol] 138 mmol/L Normal 136-145 [facility] Comment on above: Performed By: #### C MP ####[facility] Srqpdgldfk45[address] [place], [place] [address]Dr. Tishrowan Frazier Urea nitrogen [Mass/Vol] 9.0 mg/dL Normal 7.0-18.0 [facility] Comment on above: Performed By: #### C MP ####[facility] Pdggjjwhzd98[address] [place], [place] [address]Dr. Chrissy Freddie Urea nitrogen/Creatinine [Mass ratio] 7.8 mg/mg Normal [facility] Comment on above: Performed By: #### C MP ####[facility] Nkqkkptucl7[address] [place], [place] [address]Dr. Chrissy Freddie AMMONIAon 07-01-2022 Ammonia (P) [Moles/Vol] 14 umol/L Normal 11-32 [facility] Comment on above: Performed By: #### A MM ####[facility] Xcnwgbeopm9723[address] [place], [place] [address]Dr. Tishrowan Frazier AMYLASEon 07-01-2022 Amylase [Catalytic activity/Vol] 32 U/L Normal 25-115 [facility] Comment on above: Performed By: #### A MY, PHOS, CMP, LIPA ####[facility] [address]uv[address] [place] [address]Dr. Tishrowan Frazier CBC AUTO DIFFon 07-01-2022 BASO # 0.1 103/ul Normal 0.0-0.1 [facility] Comment on above: Performed By: #### C BC ####[facility] Fbiuhpizom[address] [place] [address]Dr. Chrissy Frazier Basophils/100 WBC (Bld) 0.4 % Normal 0.2-2.0 [facility] Comment on above: Performed By: #### C BC ####[facility] Gbkqhsimzg3313[address] [place], [place] [address]Dr. Chrissy Frazier EO # 0.2 103/ul Normal 0.0-0.7 [facility] Comment on above: Performed By: #### C BC ####[facility] Dwmcwnwfqc6524[address] [place], [place] [address]Dr. Tishrowan Freddie Eosinophils/100 WBC (Bld) 0.9 % Normal 0.9-7.0 [facility] Comment on above: Performed By: #### C BC ####[facility] Rxragfilld3408[address] [place], [place] [address]Dr. Chrissy Frazier Erythrocyte distribution width (RBC) [Ratio] 13.8 % Normal 11.0-15.0 [facility] Comment on above: Performed By: #### C BC ####[facility] Gqthzrdlam75[address] [place], [place] [address]Dr. Tishrowan Frazier Hematocrit (Bld) [Volume fraction] 46.3 % Normal 42.0-54.0 [facility] Comment on above: Performed By: #### C BC ####[facility] Cpiryhkndo539[address] [place], [place] [address]Dr. Tishrowan Frazier Hemoglobin (Bld) [Mass/Vol] 15.4 g/dL Normal 14.0-18.0 [facility] Comment on above: Performed By: #### C BC ####[facility] Wxmyzaqaol0032[address] [place], [place] [address]Dr. Chrissy Frazier IG # 0.05 10e3/ul Critically high 0.00-0.03 [facility] Comment on above: Performed By: #### C BC ####[facility] Upjedyshsr[address] [place] [address]Dr. Chrissy Frazier IG % 0.3 % Normal 0.0-0.5 [facility] Comment on above: Performed By: #### C BC ####[facility] Cyrovfhzlf[address] [place], [place] [address]Dr. Chrissy Frazier LYMPH # 2.0 103/ul Normal 1.2-3.8 [facility] Comment on above: Performed By: #### C BC ####[facility] Flqspyrguk5217[address] [place], [place] [address]Dr. Chrissy Frazier Lymphocytes/100 WBC (Bld) 12.9 % Critically low 20.5-60.0 [facility] Comment on above: Performed By: #### C BC ####[facility] Ngxbgxsybn945[address] [place], [place] [address]DrNancy Frazier MANUAL DIFF REQ NO Normal [facility] Comment on above: Performed By: #### C BC ####[facility] Qxxavcmoih039[address] [place], [place] [address]Dr. Tishrowan Frazier MCH (RBC) [Entitic mass] 28.6 pg Normal 25.9-34.0 [facility] Comment on above: Performed By: #### C BC ####[facility] Szadgeucwl3655[address] [place], [place] [address]Dr. Chrissy Freddie MCHC (RBC) [Mass/Vol] 33.3 g/dL Normal 29.9-35.2 [facility] Comment on above: Performed By: #### C BC ####[facility] Lfkvcbuioj3597[address] [place], [place] [address]DrNancy Frazier MCV (RBC) [Entitic vol] 86.1 fL Normal 80.0-94.0 [facility] Comment on above: Performed By: #### C BC ####[facility] Dusdtppeqa88[address] [place], [place] [address]DrNancy Frazier MONO # 0.5 103/ul Normal 0.3-0.8 [facility] Comment on above: Performed By: #### C BC ####[facility] Wpdyjcpvli6201[address] [place], [place] [address]Dr. Chrissy Frazier Monocytes/100 WBC (Bld) 3.0 % Normal 1.7-12.0 [facility] Comment on above: Performed By: #### C BC ####[facility] Wmllanpgpi[address] [place] [address]Dr. Chrissy Frazier NEUT # 13.0 103/ul Critically high 1.4-6.5 [facility] Comment on above: Performed By: #### C BC ####[facility] Vrwibqzqwi9394 [place] [address]Dr. Chrissy Frazier Neutrophils/100 WBC (Bld) 82.5 % Critically high 43.0-75.0 [facility] Comment on above: Performed By: #### C BC ####[facility] Hgwnvcahkq2729[address] [place], [place] [address]Dr. Chrissy Frazier Platelet mean volume (Bld) [Entitic vol] 10.0 fL Normal 9.5-13.5 [facility] Comment on above: Performed By: #### C BC ####[facility] Xnnsyarzrg3369[address] [place], [place] [address]Dr. Chrissy Frazier PLT 370 103/ul Normal 150-450 [facility] Comment on above: Performed By: #### C BC ####[facility] Kmmgixdpag367[address] [place], [place] [address]Dr. Chrissy Frazier RBC 5.38 106/ul Normal 4.70-6.10 [facility] Comment on above: Performed By: #### C BC ####[facility] Bjmzynootm6807[address] [place], [place] [address]Dr. Chrissy Frazier WBC 15.8 103/ul Critically high 4.0-11.0 [facility] Comment on above: Performed By: #### C BC ####[facility] T[address]ouyhkrj[address] [place] [address]Dr. Chrissy Frazier CULTURE URINEon 07-01-2022 CULTURE URINE Culture Observations: No growth Normal [facility] Comment on above: Performed By: #### U RCX ####[facility] Qqulfgzwio900[address] [place], [place] [address]Dr. Chrissy Frazeir Covid-19 PCR (CVDTB)on 06-21 SARS-CoV-2 (COVID-19) RNA RHIANNON+probe Ql (Unsp spec) Not detected Normal NOT DETECTED [facility] Comment on above: Result [...] for this test is supported by the [place] of [employer] and Human Service's declaration that [...] used). Performed By: #### C VDTBH ####[facility] Srlayanhny[address] [place] [address]Dr. Chrissy Freddie DRUG SCREEN RAPID (URINE)on 07-01-2022 AMP Negative Normal NEGATIVE [facility] Comment on above: Performed By: #### D REYES UAMIC ####[facility] [address]msoace[address] [place] [id number]. Chrissy Frazier BAR Negative Normal NEGATIVE [facility] Comment on above: Performed By: #### D CHAYAD, UAMIC ####[facility] Bslqvkayhn[address] [place] [id number]. Chrissy Frazier BUP Negative Normal NEGATIVE [facility] Comment on above: Performed By: #### D REYES UAMIC ####[facility] Ihxtdmkgoa35[address] [place] [id number]. Tishrowan Frazier BZO Negative Normal NEGATIVE [facility] Comment on above: Performed By: #### D REYES UAMIC ####[facility] Vnmtitimnj5[address] [place] [id number]. Chrissy Frazier LAUREN Negative Normal NEGATIVE [facility] Comment on above: Performed By: #### Amelie CHAMBERS UAMIC ####[facility] Tupfihsuzr16[address] [place], [place] [address]Dr. Chrissy Frazier CUT-OFFS SEE BELOW Normal [facility] Comment on above: Result [...] Performed By: #### Amelie CHAMBERS UAMIC ####[facility] Emoevznbpc2767[address] [place], [place] [address]Dr. Chrissy Frazier DRUG CUT HEADER DRUG CLASS TEST SYSTEM CUT-OFF CONCENTRATIONS ARE FOLLOWS: Normal [facility] Comment on above: Performed By: #### Amelie CHAMBERS UAMIC ####[facility] Usyzdeabtg12[address] [place], [place] [address]Dr. Chrissy Frazier mAMP Negative Normal NEGATIVE [facility] Comment on above: Performed By: #### Amelie CHAMBERS UAMIC ####[facility] Psgqjodyuz239[address] [place], [place] [address]Dr. Chrissy Frazier MTD Negative Normal NEGATIVE [facility] Comment on above: Performed By: #### Amelie CHAMBERS UAMIC ####[facility] Pqsxuekxin5250[address] [place], [place] [address]Dr. Chrissy Frazier OPI Negative Normal NEGATIVE [facility] Comment on above: Performed By: #### Amelie CHAMBERS UAMIC ####[facility] Wckkdbatzz2216[address] [place], [place] [address]Dr. Chrissy Frazier OXY Negative Normal NEGATIVE [facility] Comment on above: Performed By: #### D REYES, UAMIC ####[facility] Dxsizjztcv[address] [place] [address]Dr. Chrissy Frazier PCP Negative Normal NEGATIVE [facility] Comment on above: Performed By: #### D REYES, UAMIC ####[facility] Azucdxacxy[address] [place] [address]Dr. Chrissy Frazier PPX Negative Normal NEGATIVE [facility] Comment on above: Performed By: #### D RYEES, UAMIC ####[facility] Ggqapalpyz450[address] [place] [address]Dr. Chrissy Frazier TCA Negative Normal NEGATIVE [facility] Comment on above: Performed By: #### D REYES UAMIC ####[facility] Bhmvmvdzxt1944[address] [place], [place] [address]Dr. Chrissy Frazier THC Positive Abnormal NEGATIVE [facility] Comment on above: Performed By: #### D REYES UAMIC ####[facility] Beugryzrwu[address] [place], [place] [address]Dr. Chrissy Frazier LACTATE/LACTIC ACIDon 2021 Lactate [Moles/Vol] 4.4 mmol/L Critically high 0.4-1.9 [facility] Comment on above: Performed By: #### L ACT ####[facility] Vctqdckqpe6[address] [place], [place] [address]Dr. Chrissy Frazier LIPASEon 07-01-2022 Lipase [Catalytic activity/Vol] 57.0 U/L Critically low 73.0-393.0 [facility] Comment on above: Performed By: #### A MY, PHOS, CMP, LIPA ####[facility] Heeamgwlnk[address] [place], [place] [address]Dr. Chrissy Frazier PHOSPHORUSon 07-01-2022 Phosphate [Mass/Vol] 1.4 mg/dL Critically low 2.6-4.7 [facility] Comment on above: Performed By: #### A MY, PHOS, CMP, LIPA ####[facility] Olhqcjceiw[address] [place], [place] [address]Dr. Chrissy Frazier PROF 14(COMP METB)on 022 Albumin [Mass/Vol] 4.2 g/dL Normal 3.4-5.0 [facility] Comment on above: Performed By: #### A MY, PHOS, CMP, LIPA ####[facility] Sevxonewwl23[address] [place] [address]Dr. Chrissy Frazier Albumin/Globulin [Mass ratio] 1.1 {ratio} Normal [facility] Comment on above: Performed By: #### A MY, PHOS, CMP, LIPA ####[facility] Etbwmqxsqe[address] [place] [address]Dr. Chrissy Frazier ALP [Catalytic activity/Vol] 73 U/L Normal 46-116 [facility] Comment on above: Performed By: #### A MY, PHOS, CMP, LIPA ####[facility] Eclcfzhjph42[address] [place] [address]Dr. Chrissy Frazier ALT [Catalytic activity/Vol] 43 U/L Normal 16-63 [facility] Comment on above: Performed By: #### A MY, PHOS, CMP, LIPA ####[facility] Zygcgktenw[address] [place] [address]Dr. Chrissy Frazier Anion gap [Moles/Vol] 19.0 mmol/L Normal [facility] Comment on above: Performed By: #### A MY, PHOS, CMP, LIPA ####[facility] Creuhsrfwp[address] [place] [address]Dr. Chrissy Frazier AST [Catalytic activity/Vol] 21 U/L Normal 15-37 [facility] Comment on above: Performed By: #### A MY, PHOS, CMP, LIPA ####[facility] Wwknqeqvca3[address] [place] [address]Dr. Chrissy Frazier Bilirubin [Mass/Vol] 0.5 mg/dL Normal 0.2-1.0 [facility] Comment on above: Performed By: #### A MY, PHOS, CMP, LIPA ####[facility] Wozamsjaen[address] [place] [address]Dr. Chrissy Frazier Calcium [Mass/Vol] 9.3 mg/dL Normal 8.5-10.1 [facility] Comment on above: Performed By: #### A MY, PHOS, CMP, LIPA ####[facility] Atwzgdxwoo[address] [place] [address]Dr. Chrissy Frazier Chloride [Moles/Vol] 103 mmol/L Normal 98-107 [facility] Comment on above: Performed By: #### A MY, PHOS, CMP, LIPA ####[facility] Aawmiabfmq04[address] [place] [address]Dr. Chrissy Frazier CO2 [Moles/Vol] 21.1 mmol/L Normal 21.0-32.0 [facility] Comment on above: Performed By: #### A MY, PHOS, CMP, LIPA ####[facility] Lfgpiozdjk[address] [place], [place] [address]Dr. Chrissy Frazier Creatinine [Mass/Vol] 1.44 mg/dL Critically high 0.70-1.30 [facility] Comment on above: Performed By: #### A MY, PHOS, CMP, LIPA ####[facility] Qskdmyweqa039[address] [place], [place] [address]Dr. Chrissy Frazier EGFR-AF STATELESS >60 Normal >=60 [facility] Comment on above: Performed By: #### A MY, PHOS, CMP, LIPA ####[facility] Njydlbvyds[address] [place] [address]Dr. Chrissy Frazier EGFR-NON AF STATELESS 57 mL/min/1.73m2 Critically low >=60 [facility] Comment on above: Performed By: #### A MY, PHOS, CMP, LIPA ####[facility] Jsqrrdxtoe2[address] [place] [address]Dr. Chrissy Frazier Globulin (S) [Mass/Vol] 3.9 g/dL Normal [facility] Comment on above: Performed By: #### A MY, PHOS, CMP, LIPA ####[facility] Hmawtzbtpp9[address] [place] [address]Dr. Chrissy Frazier Glucose [Mass/Vol] 148 mg/dL Critically high 74-106 [facility] Comment on above: Performed By: #### A MY, PHOS, CMP, LIPA ####[facility] Oxnkpzgbqh87[address] [place] [address]Dr. Chrissy Frazier Potassium [Moles/Vol] 3.1 mmol/L Critically low 3.5-5.1 [facility] Comment on above: Performed By: #### A MY, PHOS, CMP, LIPA ####[facility] Umrwypngxq6475 [place] [address]Dr. Chrissy Frazier Protein [Mass/Vol] 8.1 g/dL Normal 6.4-8.2 The [facility] Comment on above: Performed By: #### A MY, PHOS, CMP, LIPA ####[facility] Yllibqvkfr35[address] [place] [address]Dr. Chrissy Frazier Sodium [Moles/Vol] 140 mmol/L Normal 136-145 [facility] Comment on above: Performed By: #### A MY, PHOS, CMP, LIPA ####[facility] Tzybhimnjs38[address] [place] [address]Dr. Chrissy Frazier Urea nitrogen [Mass/Vol] 10.0 mg/dL Normal 7.0-18.0 [facility] Comment on above: Performed By: #### A MY, PHOS, CMP, LIPA ####[facility] Qdfbshyyyn28[address] [place] [address]Dr. Chrissy Frazier Urea nitrogen/Creatinine [Mass ratio] 6.9 mg/mg Normal [facility] Comment on above: Performed By: #### A MY, PHOS, CMP, LIPA ####[facility] Xcafvpaiek[address] [place] [address]Dr. Chrissy Freddie UA RANDOM W/MICROSCOPICon BACTERIA TRACE Abnormal NONE SEEN [facility] Comment on above: Performed By: #### D REYES UAMIC ####[facility] Lpnrlfvoxp5[address] [place] [address]Dr. Tishrowan Freddie Bilirubin Ql (U) Negative Normal NEGATIVE [facility] Comment on above: Performed By: #### D REYES UAMIC ####[facility] Vbqjspitxi7486 [place] [address]Dr. Chrissy Frazier CAST NONE SEEN Normal NONE SEEN [facility] Comment on above: Performed By: #### Amelie CHAMBERS UAMIC ####[facility] Mifqbkldtn75[address] [place], [place] [address]Dr. Chrissy Frazier Clarity (U) CLEAR Normal CLEAR [facility] Comment on above: Performed By: #### Amelie CHAMBERS UAMIC ####[facility] Qmnmdeqyvf22[address] [place] [address]Dr. Chrissy Frazier Color (U) YELLOW Normal YELLOW [facility] Comment on above: Performed By: #### Amelie CHAMBERS UAMIC ####[facility] Pidfltljgl15[address] [place], [place] [address]Dr. Chrissy Frazier Crystals LM Nom (Urine sed) NONE SEEN Normal NONE SEEN [facility] Comment on above: Performed By: #### Amelie CHAMBERS UAMIC ####[facility] Wqpbhtscaa7064[address] [place], [place] [address]Dr. Chrissy Frazier Epithelial cells LM Ql (Urine sed) RARE Normal NONE SEEN /RARE [facility] Comment on above: Performed By: #### Amelie CHAMBERS UAMIC ####[facility] Bdtiopqaan8376[address] [place], [place] [address]Dr. Chrissy Frazier Glucose Ql (U) Negative Normal NEGATIVE [facility] Comment on above: Performed By: #### Amelie CHAMBERS UAMIC ####[facility] Qjnzyvhuim5367[address] [place], [place] [address]Dr. Chrissy Frazier Hemoglobin Ql (U) Negative Normal NEGATIVE [facility] Comment on above: Performed By: #### Amelie CHAMBERS UAMIC ####[facility] Rcxidkrics9[address] [place], [place] [address]Dr. Chrissy Frazier Ketones Ql (U) 40 mg/dl Abnormal NEGATIVE [facility] Comment on above: Performed By: #### Amelie CHAMBERS UAMIC ####[facility] Oltekrynum4164[address] [place], [place] [address]Dr. Chrissy Frazier LEUKOCYTES Negative Normal NEGATIVE [facility] Comment on above: Performed By: #### Amelie CHAMBERS, UAMIC ####[facility] Nuaxhvhnyj[address] [place] [address]Dr. Chrissy Frazier MUCOUS MODERATE Abnormal NONE SEEN [facility] Comment on above: Performed By: #### Amelie CHAMBERS, UAMIC ####[facility] Zvlnkfonph5567 [place] [address]Dr. Chrissy Frazier Nitrite Ql (U) Negative Normal NEGATIVE [facility] Comment on above: Performed By: #### Amelie CHAMBERS UAMIC ####[facility] Vzylevpkaq94[address] [place], [place] [address]Dr. Chrissy Frazier pH (U) 6.0 [pH] Normal 5-9 [facility] Comment on above: Performed By: #### Amelie CHAMBERS UAMIC ####[facility] Aaxumykbio9018[address] [place], [place] [address]Dr. Chrissy Frazier RBC 0-2 Normal 0-2 [facility] Comment on above: Performed By: #### Amelie CHAMBERS UAMIC ####[facility] Twqmuqijei40[address] [place], [place] [address]Dr. Chrissy Frazier SPEC GRAVITY 1.020 Normal 1.005-<=1.025 The [facility] Comment on above: Performed By: #### Amelie CHAMBERS UAMIC ####[facility] Yogietexin06[address] [place], [place] [address]Dr. Chrissy Frazier UA PROTEIN Negative Normal NEGATIVE/ TRACE [facility] Comment on above: Performed By: #### Amelie CHAMBERS UAMIC ####[facility] Lklyetnyym[address] [place], [place] [address]Dr. Chrissy Frazier Urobilinogen Qn (U) 0.2 {Estrellita'U}/dL Normal 0.2 - 1. 0 [facility] Comment on above: Performed By: #### Amelie CHAMBERS UAMIC ####[facility] Cpsvxozbxp[address] [place], [place] [address]Dr. Chrissy Frazier WBC 0-2 Abnormal NONE SEEN [facility] Comment on above: Performed By: #### D RUGRPD, UAMIC ####[facility] X[address] [place], [place] [address]Mz. Chrissy Frazier XR ABD FLAT UP_PA Enoch 07-01 XR ABD FLAT UP_PA CH Normal [facility] Covid-19 PCR (CVDTB)on SARS-CoV-2 (COVID-19) RNA RHIANNON+probe Ql (Unsp spec) Not detected Normal NOT DETECTED [facility] Comment on above: Result [...] for this test is supported by the [employer] of Health and Human Service's declaration that [...] longer be used). Performed By: #### [facility] ####[facility] Brwojtpcrp[address] [place], [place] [address]Gh. Chrissy Frazier SYMPTOMATIC COVID-19 ANTIGEN on 04-23-2022 EUA Statement SEE BELOW Normal The [facility] Comment on above: Result Comment: [...] sooner. Performed By: #### C VDAGS ####[facility] Ksjyzoxwpe[address] [place] [address]Dr. Chrissy Frazier SARS-CoV-2 (COVID-19) RNA RHIANNON+probe Ql (Unsp spec) Negative Normal NEGATIVE [facility] Comment on above: Performed By: #### C VDAGS ####[facility] Jgbndgwrpj[address] [place], [place] [address]Dr. Chrissy Frazier AMYLASEon 04-04-2022 Amylase [Catalytic activity/Vol] 40 U/L Normal 25-115 [facility] Comment on above: Performed By: #### C MP, TERRENCE, LIPA ####[facility] Ljxlnuvikg[address] [place], [place] [address]Dr. Chrissy Frazier CBC AUTO DIFFon 04-04-2022 BASO # 0.1 103/ul Normal 0.0-0.1 [facility] Comment on above: Performed By: #### C BC ####[facility] [facility] Rpcfbejpvz[address] [place], [place] [address]Dr. Chrissy Frazier Basophils/100 WBC (Bld) 0.4 % Normal 0.2-2.0 [facility] Comment on above: Performed By: #### C BC ####[facility] Yxqrslitfu8[address] [place], [place] [address]Dr. Chrissy Frazier EO # 0.1 103/ul Normal 0.0-0.7 [facility] Comment on above: Performed By: #### C BC ####[facility] Xganrstqis[address] [place], [place] [address]Dr. Chrissy Frazier Eosinophils/100 WBC (Bld) 0.6 % Critically low 0.9-7.0 [facility] Comment on above: Performed By: #### C BC ####[facility] Rieamxlgqt55[address] [place], [place] [address]Dr. Chrissy Frazier Erythrocyte distribution width (RBC) [Ratio] 13.2 % Normal 11.0-15.0 [facility] Comment on above: Performed By: #### C BC ####[facility] [address] [place] [address]Dr. Chrissy Frazier Hematocrit (Bld) [Volume fraction] 48.3 % Normal 42.0-54.0 [facility] Comment on above: Performed By: #### C BC ####[facility] Vnxdbxjhys[address] [place] [address]Dr. Chrissy Frazier Hemoglobin (Bld) [Mass/Vol] 16.1 g/dL Normal 14.0-18.0 [facility] Comment on above: Performed By: #### C BC ####[facility] Ujgrkgzbsp2[address] [place], [place] [address]Dr. Chrissy Frazier IG # 0.12 10e3/ul Critically high 0.00-0.03 [facility] Comment on above: Performed By: #### C BC ####[facility] Rflcbhnnml24[address] [place], [place] [address]Dr. Chrissy Frazier IG % 0.9 % Critically high 0.0-0.5 [facility] Comment on above: Performed By: #### C BC ####[facility] Jvujyqvnax[address] [place], [place] [address]Dr. Chrissy Frazier LYMPH # 3.0 103/ul Normal 1.2-3.8 [facility] Comment on above: Performed By: #### C BC ####[facility] Rohhfhmapw7[address] [place], [place] [address]Dr. Chrissy Frazier Lymphocytes/100 WBC (Bld) 22.3 % Normal 20.5-60.0 [facility] Comment on above: Performed By: #### C BC ####[facility] Xbzlzfbzzk5[address] [place], [place] [address]DrNancy Frazier MANUAL DIFF REQ NO Normal [facility] Comment on above: Performed By: #### C BC ####[facility] Ydhfnjzjwu65[address] [place], [place] [address]DrNancy Frazier MCH (RBC) [Entitic mass] 28.6 pg Normal 25.9-34.0 [facility] Comment on above: Performed By: #### C BC ####[facility] L[address]wwzmlbuv[address] [place] [id number]. Chrissy Freddie MCHC (RBC) [Mass/Vol] 33.3 g/dL Normal 29.9-35.2 [facility] Comment on above: Performed By: #### C BC ####[facility] Kjluinbyrt[address] [place] [id number]. Tishrowan Freddie MCV (RBC) [Entitic vol] 85.9 fL Normal 80.0-94.0 [facility] Comment on above: Performed By: #### C BC ####[facility] Fdkwjbfwon9[address] [place], [place] [address]Dr. Chrissy Frazier MONO # 0.8 103/ul Normal 0.3-0.8 [facility] Comment on above: Performed By: #### C BC ####[facility] Qasfmbzdis09[address] [place], [place] [address]Dr. Chrissy Frazier Monocytes/100 WBC (Bld) 5.7 % Normal 1.7-12.0 [facility] Comment on above: Performed By: #### C BC ####[facility] Gruneeefrg[address] [place], [place] [address]Dr. Chrissy Frazier NEUT # 9.3 103/ul Critically high 1.4-6.5 [facility] Comment on above: Performed By: #### C BC ####[facility] Vxvcdgkomw[address] [place], [place] [address]Dr. Chrissy Frazier Neutrophils/100 WBC (Bld) 70.1 % Normal 43.0-75.0 [facility] Comment on above: Performed By: #### C BC ####[facility] N[address]vz[address] [place], [place] [id number] Frazier Platelet mean volume (Bld) [Entitic vol] 10.3 fL Normal 9.5-13.5 [facility] Comment on above: Performed By: #### C BC ####[facility] Aaaephkdna[address] [place], [place] [address]Dr. Chrissy Frazier PLT 461 103/ul Critically high 150-450 [facility] Comment on above: Performed By: #### C BC ####[facility] Qwrqexwlqi0[address] [place] [address]Dr. Tishrowan Freddie RBC 5.62 106/ul Normal 4.70-6.10 [facility] Comment on above: Performed By: #### C BC ####[facility] Eupiootlfe[address] [place] [phone]. Chrissy Frazier WBC 13.3 103/ul Critically high 4.0-11.0 [facility] Comment on above: Performed By: #### C BC ####[facility] Ewstkiekfg[address] [place] [address]Dr. Chrissy Frazier LIPASEon 04-04-2022 Lipase [Catalytic activity/Vol] 118.0 U/L Normal 73.0-393.0 [facility] Comment on above: Performed By: #### C MP, TERRENCE, LIPA ####[facility] Gksltrezgu[address] [place] [address]Dr. Chrissy Frazier PROF 14(COMP METB)on 022 Albumin [Mass/Vol] 4.3 g/dL Normal 3.4-5.0 [facility] Comment on above: Performed By: #### C MP, TERRENCE, LIPA ####[facility] Rombhksgig[address] [place] [address]Dr. Chrissy Frazier Albumin/Globulin [Mass ratio] 1.0 {ratio} Normal [facility] Comment on above: Performed By: #### C MP, TERRENCE, LIPA ####[facility] Fkxtdpreaw25[address] [place] [address]Dr. Chrissy Frazier ALP [Catalytic activity/Vol] 84 U/L Normal 46-116 [facility] Comment on above: Performed By: #### C MP, TERRENCE, LIPA ####[facility] Opplnnghre[address] [place] [address]Dr. Chrissy Frazier ALT [Catalytic activity/Vol] 81 U/L Critically high 16-63 [facility] Comment on above: Performed By: #### C MP, TERRENCE, LIPA ####[facility] H[address]rksbjb[address] [place] [id number]. Chrissy Frazier Anion gap [Moles/Vol] 17.9 mmol/L Normal [facility] Comment on above: Performed By: #### C MP, TERRENCE, LIPA ####[facility] Jglblypzkb80[address] [place] [address]Dr. Chrissy Frazier AST [Catalytic activity/Vol] 25 U/L Normal 15-37 [facility] Comment on above: Performed By: #### C MP, TERRENCE, LIPA ####[facility] Ytiovkuyka[address] [place] [address]Dr. Chrissy Frazier Bilirubin [Mass/Vol] 0.5 mg/dL Normal 0.2-1.0 [facility] Comment on above: Performed By: #### C MP, TERRENCE, LIPA ####[facility] Ryecjwatpo[address] [place] [address]Dr. Chrissy Frazier Calcium [Mass/Vol] 9.6 mg/dL Normal 8.5-10.1 [facility] Comment on above: Performed By: #### C MP, TERRENCE, LIPA ####[facility] Szfmvcthtb44[address] [place] [address]Dr. Chrissy Frazier Chloride [Moles/Vol] 101 mmol/L Normal 98-107 [facility] Comment on above: Performed By: #### C MP, TERRENCE, LIPA ####[facility] Ipnbznvdrd18[address] [place] [address]Dr. Chrissy Frazier CO2 [Moles/Vol] 18.6 mmol/L Critically low 21.0-32.0 [facility] Comment on above: Performed By: #### C MP, TERRENCE, LIPA ####[facility] Zenltjeeqd69[address] [place] [address]Dr. Chrissy Frazier Creatinine [Mass/Vol] 1.39 mg/dL Critically high 0.70-1.30 [facility] Comment on above: Performed By: #### C MP, TERRENCE, LIPA ####[facility] Sxqbavcuhs[address] [place] [address]Dr. Chrissy Frazier EGFR-AF STATELESS >60 Normal >=60 [facility] Comment on above: Performed By: #### C MP, TERRENCE, LIPA ####[facility] Jorpywoecy[address] [place] [address]Dr. Chrissy Frazier EGFR-NON AF STATELESS 59 mL/min/1.73m2 Critically low >=60 [facility] Comment on above: Performed By: #### C MP, TERRENCE, LIPA ####[facility] Izvspyhekd55[address] [place] [address]Dr. Chrissy Frazier Globulin (S) [Mass/Vol] 4.3 g/dL Normal [facility] Comment on above: Performed By: #### C MP, TERRENCE, LIPA ####[facility] Gmshplelgp45[address] [place] [address]Dr. Chrissy Frazier Glucose [Mass/Vol] 132 mg/dL Critically high 74-106 [facility] Comment on above: Performed By: #### C MP, TERRENCE, LIPA ####[facility] Wuydyvnuko[address] [place], [place] [address]Dr. Chrissy Frazier Potassium [Moles/Vol] 3.5 mmol/L Normal 3.5-5.1 [facility] Comment on above: Performed By: #### C MP, TERRENCE, LIPA ####[facility] Ylayxqcqdf220[address] [place], [place] [address]Dr. Chrissy Frazier Protein [Mass/Vol] 8.6 g/dL Critically high 6.4-8.2 [facility] Comment on above: Performed By: #### C MP, TERRENCE, LIPA ####[facility] Qahrhtqdvf[address] [place] [address]Dr. Chrissy Frazier Sodium [Moles/Vol] 134 mmol/L Critically low 136-145 [facility] Comment on above: Performed By: #### C MP, TERRENCE, LIPA ####[facility] Unywserchk36[address] [place] [address]Dr. Chrissy Frazier Urea nitrogen [Mass/Vol] 8.0 mg/dL Normal 7.0-18.0 [facility] Comment on above: Performed By: #### C MP, TERRENCE, LIPA ####[facility] Spbpgbzika[address] [place] [address]Dr. Chrissy Frazier Urea nitrogen/Creatinine [Mass ratio] 5.8 mg/mg Normal [facility] Comment on above: Performed By: #### C TERRENCE ADAIR LIPA ####[facility] Wmnjmylpcs[address] [place] [address]Dr. Chrissy Frazier XR ABD FLAT UP_PA Enoch 04-04 XR ABD FLAT UP_PA CH Normal [facility] AMMONIAon 03-31-2022 Ammonia (P) [Moles/Vol] 19 umol/L Normal 11-32 [facility] Comment on above: Performed By: #### A MM ####[facility] Rtryxxiisd[address] [place], [place] [address]Dr. Chrissy Freddie CBC AUTO DIFFon 03-31-2022 BASO # 0.1 103/ul Normal 0.0-0.1 [facility] Comment on above: Performed By: #### C BC ####[facility] Qjhrhhufox3[address] [place], [place] [address]Dr. Chrissy Freddie Basophils/100 WBC (Bld) 0.5 % Normal 0.2-2.0 [facility] Comment on above: Performed By: #### C BC ####[facility] Cljkkgbakj07[address] [place], [place] [address]Dr. Chrissy Frazier EO # 0.2 103/ul Normal 0.0-0.7 [facility] Comment on above: Performed By: #### C BC ####[facility] Pocbiiigab[address] [place], [place] [address]Dr. Tishrowan Frazier Eosinophils/100 WBC (Bld) 1.6 % Normal 0.9-7.0 [facility] Comment on above: Performed By: #### C BC ####[facility] Jlcshgbjmd48[address] [place], [place] [address]Dr. Chrissy Freddie Erythrocyte distribution width (RBC) [Ratio] 13.2 % Normal 11.0-15.0 [facility] Comment on above: Performed By: #### C BC ####[facility] Vvctowwvih[address] [place], [place] [address]Dr. Chrissy Frazier Hematocrit (Bld) [Volume fraction] 42.1 % Normal 42.0-54.0 [facility] Comment on above: Performed By: #### C BC ####[facility] Mrmcrvsrxh[address] [place] [address]Dr. Chrissy Frazier Hemoglobin (Bld) [Mass/Vol] 14.3 g/dL Normal 14.0-18.0 [facility] Comment on above: Performed By: #### C BC ####[facility] Cbkdpcmljm90[address] [place] [address]Dr. Chrissy Frazier IG # 0.05 10e3/ul Critically high 0.00-0.03 [facility] Comment on above: Performed By: #### C BC ####[facility] Ujduhfonde28[address] [place] [address]Dr. Chrissy Frazier IG % 0.5 % Normal 0.0-0.5 [facility] Comment on above: Performed By: #### C BC ####[facility] Xkuvxldydb36[address] [place] [address]Dr. Chrissy Frazier LYMPH # 2.9 103/ul Normal 1.2-3.8 [facility] Comment on above: Performed By: #### C BC ####[facility] Wuzuwhnaex52[address] [place] [address]Dr. Chrissy Frazier Lymphocytes/100 WBC (Bld) 25.7 % Normal 20.5-60.0 [facility] Comment on above: Performed By: #### C BC ####[facility] Mldfxuguxk23[address] [place] [address]Dr. Chrissy Frazier MANUAL DIFF REQ NO Normal [facility] Comment on above: Performed By: #### C BC ####[facility] Xzyqxkdhhs8564 [place] [address]Dr. Chrissy Frazier MCH (RBC) [Entitic mass] 29.2 pg Normal 25.9-34.0 [facility] Comment on above: Performed By: #### C BC ####[facility] Wxjkoimsid16[address] [place] [address]Dr. Chrissy Frazier MCHC (RBC) [Mass/Vol] 34.0 g/dL Normal 29.9-35.2 [facility] Comment on above: Performed By: #### C BC ####[facility] Taqokoinfr8657 [place] [id number]. Chrissy Frazier MCV (RBC) [Entitic vol] 85.9 fL Normal 80.0-94.0 [facility] Comment on above: Performed By: #### C BC ####[facility] Efsndyerhr0[address] [place] [id number]. Chrissy Freddie MONO # 1.0 103/ul Critically high 0.3-0.8 [facility] Comment on above: Performed By: #### C BC ####[facility] Klgsytlzss49[address] [place] [address]Dr. Chrissy Frazier Monocytes/100 WBC (Bld) 8.6 % Normal 1.7-12.0 [facility] Comment on above: Performed By: #### C BC ####[facility] Dwhjxnizhr78[address] [place], [place] [address]Dr. Chrissy Frazier NEUT # 7.0 103/ul Critically high 1.4-6.5 [facility] Comment on above: Performed By: #### C BC ####[facility] Ghboanvvbk625[address] [place], [place] [address]Dr. Tishrowan Frazier Neutrophils/100 WBC (Bld) 63.1 % Normal 43.0-75.0 [facility] Comment on above: Performed By: #### C BC ####[facility] Zhpngezahi7331 [place] [id number]. Tishrowan Frazier Platelet mean volume (Bld) [Entitic vol] 10.4 fL Normal 9.5-13.5 [facility] Comment on above: Performed By: #### C BC ####[facility] Jhhgeopwdc9998 [place] [id number]. Chrissy Frazier PLT 308 103/ul Normal 150-450 [facility] Comment on above: Performed By: #### C BC ####[facility] Sckdayoxhc10[address] [place], [place] [address]Dr. Chrissy Frazier RBC 4.90 106/ul Normal 4.70-6.10 [facility] Comment on above: Performed By: #### C BC ####[facility] Frbiulkdfj37[address] [place] [address]Dr. Tishrowan Freddie WBC 11.1 103/ul Critically high 4.0-11.0 [facility] Comment on above: Performed By: #### C BC ####[facility] Txxwtxffpz6[address] [place] [address]Dr. Chrissy Frazier PROF 14(COMP METB)on 022 Albumin [Mass/Vol] 3.5 g/dL Normal 3.4-5.0 [facility] Comment on above: Performed By: #### C MP ####[facility] Rkgjayhwxq7959[address] [place], [place] [address]Dr. Chrissy Frazier Albumin/Globulin [Mass ratio] 0.9 {ratio} Normal [facility] Comment on above: Performed By: #### C MP ####[facility] Jztpiquqim[address] [place], [place] [address]Dr. Tishrowan Frazier ALP [Catalytic activity/Vol] 68 U/L Normal 46-116 [facility] Comment on above: Performed By: #### C MP ####[facility] Fomzyguvyi2526[address] [place], [place] [address]Dr. Chrissy Frazier ALT [Catalytic activity/Vol] 113 U/L Critically high 16-63 [facility] Comment on above: Performed By: #### C MP ####[facility] Bbbzowavnj150[address] [place], [place] [address]Dr. Chrissy Frazier Anion gap [Moles/Vol] 14.0 mmol/L Normal [facility] Comment on above: Performed By: #### C MP ####[facility] Qcckxextyt859[address] [place], [place] [address]Dr. Chrissy Frazier AST [Catalytic activity/Vol] 31 U/L Normal 15-37 [facility] Comment on above: Performed By: #### C MP ####[facility] Uuqcaamlaz[address] [place], [place] [address]Dr. Chrissy Frazier Bilirubin [Mass/Vol] 0.6 mg/dL Normal 0.2-1.0 [facility] Comment on above: Performed By: #### C MP ####[facility] Malwibcbbn33[address] [place], [place] [address]Dr. Chrissy Frazier Calcium [Mass/Vol] 8.4 mg/dL Critically low 8.5-10.1 [facility] e [facility] Comment on above: Performed By: #### C MP ####[facility] Rbcsrqpwyt206[address] [place], [place] [address]Dr. Chrissy Frazier Chloride [Moles/Vol] 101 mmol/L Normal 98-107 [facility] Comment on above: Performed By: #### C MP ####[facility] Djcxntwbhi9[address] [place], [place] [address]Dr. Chrissy Frazier CO2 [Moles/Vol] 24.2 mmol/L Normal 21.0-32.0 [facility] Comment on above: Performed By: #### C MP ####[facility] Yyutnaiibd8[address] [place], [place] [address]Dr. Chrissy Frazier Creatinine [Mass/Vol] 1.15 mg/dL Normal 0.70-1.30 [facility] Comment on above: Performed By: #### C MP ####[facility] Ghttqieqzx7217[address] [place], [place] [address]Dr. Chrissy Frazier EGFR-AF STATELESS >60 Normal >=60 [facility] Comment on above: Performed By: #### C MP ####[facility] Dhxnzcdyto279[address] [place], [place] [address]Dr. Chrissy Frazier EGFR-NON AF STATELESS >60 Normal >=60 [facility] Comment on above: Performed By: #### C MP ####[facility] Vedzfkljzw00[address] [place], [place] [address]Dr. Chrissy Frazier Globulin (S) [Mass/Vol] 3.8 g/dL Normal [facility] Comment on above: Performed By: #### C MP ####[facility] Ibzxvfyaeh9376[address] [place], [place] [address]Dr. Chrissy Frazier Glucose [Mass/Vol] 100 mg/dL Normal 74-106 [facility] Comment on above: Performed By: #### C MP ####[facility] Chqnhglafb6434 [place] [address]Dr. Chrissy Frazier Potassium [Moles/Vol] 3.2 mmol/L Critically low 3.5-5.1 [facility] Comment on above: Performed By: #### C MP ####[facility] Kxwzdqmomi39[address] [place], [place] [address]Dr. Chrissy Frazier Protein [Mass/Vol] 7.3 g/dL Normal 6.4-8.2 [facility] Comment on above: Performed By: #### C MP ####[facility] Xvtsosflak8835[address] [place], [place] [address]Dr. Chrissy Frazier Sodium [Moles/Vol] 136 mmol/L Normal 136-145 [facility] Comment on above: Performed By: #### C MP ####[facility] Foewuknwxt6[address] [place], [place] [address]Dr. Chrissy Frazier Urea nitrogen [Mass/Vol] 13.0 mg/dL Normal 7.0-18.0 [facility] Comment on above: Performed By: #### C MP ####[facility] Ndabdqtlnb5[address] [place], [place] [address]Dr. Chrissy Frazier Urea nitrogen/Creatinine [Mass ratio] 11.3 mg/mg Normal [facility] Comment on above: Performed By: #### C MP ####[facility] Oglwyaayhn9[address] [place], [place] [address]Dr. Chrissy Frazier AMMONIAon 03-30-2022 Ammonia (P) [Mass/Vol] ug/dL Critically low 11-32 [facility] Comment on above: Performed By: #### A MM ####[facility] Hblihukuyk89[address] [place], [place] [address]Dr. Chrissy Frazier CBC AUTO DIFFon 03-30-2022 BASO # 0.1 103/ul Normal 0.0-0.1 [facility] Comment on above: Performed By: #### C BC ####[facility] Lkxwvjoglw[address] [place], [place] [address]Dr. Chrissy Frazier Basophils/100 WBC (Bld) 0.5 % Normal 0.2-2.0 [facility] Comment on above: Performed By: #### C BC ####[facility] Hbsmeeiqxl90[address] [place] [address]Dr. Chrissy Frazier EO # 0.1 103/ul Normal 0.0-0.7 [facility] Comment on above: Performed By: #### C BC ####[facility] Kkydmtjslc379[address] [place], [place] [address]Dr. Chrissy Frazier Eosinophils/100 WBC (Bld) 1.1 % Normal 0.9-7.0 [facility] Comment on above: Performed By: #### C BC ####[facility] Dsmqmevtqy319[address] [place], [place] [address]Dr. Chrissy Frazier Erythrocyte distribution width (RBC) [Ratio] 13.4 % Normal 11.0-15.0 [facility] Comment on above: Performed By: #### C BC ####[facility] Xxwhufpter5[address] [place], [place] [address]Dr. Chrissy Frazier Hematocrit (Bld) [Volume fraction] 45.8 % Normal 42.0-54.0 [facility] Comment on above: Performed By: #### C BC ####[facility] Okoaafvtdt92[address] [place], [place] [address]Dr. Chrissy Frazier Hemoglobin (Bld) [Mass/Vol] 14.9 g/dL Normal 14.0-18.0 [facility] Comment on above: Performed By: #### C BC ####[facility] Kshzzdhmbc7[address] [place], [place] [address]Dr. Chrissy Frazier IG # 0.05 10e3/ul Critically high 0.00-0.03 [facility] Comment on above: Performed By: #### C BC ####[facility] Bmenhhgmzr4[address] [place], [place] [address]Dr. Chrissy Frazier IG % 0.5 % Normal 0.0-0.5 [facility] Comment on above: Performed By: #### C BC ####[facility] Duhgazolwj34[address] [place], [place] [address]Dr. Chrissy Frazier LYMPH # 3.0 103/ul Normal 1.2-3.8 [facility] Comment on above: Performed By: #### C BC ####[facility] Xfbpfsitsd[address] [place] [address]Dr. Chrissy Frazier Lymphocytes/100 WBC (Bld) 30.2 % Normal 20.5-60.0 [facility] Comment on above: Performed By: #### C BC ####[facility] Imbohubcep10[address] [place] [address]Dr. Chrissy Frazier MANUAL DIFF REQ NO Normal [facility] Comment on above: Performed By: #### C BC ####[facility] Votjyhdnvd9[address] [place] [address]Dr. Chrissy Frazier MCH (RBC) [Entitic mass] 28.4 pg Normal 25.9-34.0 [facility] Comment on above: Performed By: #### C BC ####[facility] Cvncsgyqdx17[address] [place], [place] [address]Dr. Chrissy Frazier MCHC (RBC) [Mass/Vol] 32.5 g/dL Normal 29.9-35.2 [facility] Comment on above: Performed By: #### C BC ####[facility] Unnyoinrml08[address] [place], [place] [address]Dr. Chrissy Frazier MCV (RBC) [Entitic vol] 87.4 fL Normal 80.0-94.0 [facility] Comment on above: Performed By: #### C BC ####[facility] Nrffdrxmvl377[address] [place], [place] [address]Dr. Chrissy Frazier MONO # 0.8 103/ul Normal 0.3-0.8 [facility] Comment on above: Performed By: #### C BC ####[facility] Wyaesvnryq020[address] [place], [place] [address]Dr. Chrissy Frazier Monocytes/100 WBC (Bld) 7.9 % Normal 1.7-12.0 [facility] Comment on above: Performed By: #### C BC ####[facility] Dkoatyyngz1708[address] [place], [place] [address]Dr. Yirowan Frazier NEUT # 5.9 103/ul Normal 1.4-6.5 [facility] Comment on above: Performed By: #### C BC ####[facility] Dcayuuvchh[address] [place] [address]DrNancy Frazier Neutrophils/100 WBC (Bld) 59.8 % Normal 43.0-75.0 [facility] Comment on above: Performed By: #### C BC ####[facility] Rvjtdouosq49[address] [place] [address]DrNancy Frazier Platelet mean volume (Bld) [Entitic vol] 10.1 fL Normal 9.5-13.5 [facility] Comment on above: Performed By: #### C BC ####[facility] Luubmufcvn05[address] [place], [place] [address]DrNancy Frazier PLT 320 103/ul Normal 150-450 [facility] Comment on above: Performed By: #### C BC ####[facility] Rlcvugdsyr599[address] [place], [place] [address]DrNancy Frazier RBC 5.24 106/ul Normal 4.70-6.10 [facility] Comment on above: Performed By: #### C BC ####[facility] Rexazbweju3195[address] [place], [place] [address]DrNancy Frazier WBC 9.9 103/ul Normal 4.0-11.0 [facility] Comment on above: Performed By: #### C BC ####[facility] Znmggmsfdg2385[address] [place], [place] [address]Dr. Chrissy Frazier PROF 14(COMP METB)on 022 Albumin [Mass/Vol] 3.9 g/dL Normal 3.4-5.0 [facility] Comment on above: Performed By: #### C MP ####[facility] Krdazbkibj7[address] [place], [place] [address]DrNancy Frazier Albumin/Globulin [Mass ratio] 1.1 {ratio} Normal [facility] Comment on above: Performed By: #### C MP ####[facility] Ziptpflbmk1318[address] [place], [place] [address]DrNancy Lowe Frazier ALP [Catalytic activity/Vol] 88 U/L Normal 46-116 [facility] Comment on above: Performed By: #### C MP ####[facility] Sbqinrxddo73[address] [place] [address]Dr. Chrissy Frazier ALT [Catalytic activity/Vol] 161 U/L Critically high 16-63 [facility] Comment on above: Performed By: #### C MP ####[facility] Jfqvksqqmj3829[address] [place], [place] [address]Dr. Chrissy Freddie Anion gap [Moles/Vol] 12.3 mmol/L Normal [facility] Comment on above: Performed By: #### C MP ####[facility] Mrqtxsrhdi1404[address] [place], [place] [address]Dr. Chrissy Freddie AST [Catalytic activity/Vol] 64 U/L Critically high 15-37 [facility] Comment on above: Performed By: #### C MP ####[facility] Tvlykneqof7423[address] [place], [place] [address]Dr. Chrissy Freddie Bilirubin [Mass/Vol] 0.8 mg/dL Normal 0.2-1.0 [facility] Comment on above: Performed By: #### C MP ####[facility] Utshweuxzl9759[address] [place], [place] [address]Dr. Chrissy Freddie Calcium [Mass/Vol] 8.4 mg/dL Critically low 8.5-10.1 [facility] Comment on above: Performed By: #### C MP ####[facility] Rykuujpurv2587[address] [place], [place] [address]Dr. Chrissy Freddie Chloride [Moles/Vol] 103 mmol/L Normal 98-107 [facility] Comment on above: Performed By: #### C MP ####[facility] Sovzibllur5[address] [place], [place] [address]Dr. Chrissy Frazier CO2 [Moles/Vol] 26.5 mmol/L Normal 21.0-32.0 [facility] Comment on above: Performed By: #### C MP ####[facility] Wtrlovmwvo7304[address] [place], [place] [address]Dr. Chrissy Frazier Creatinine [Mass/Vol] 1.24 mg/dL Normal 0.70-1.30 [facility] Comment on above: Performed By: #### C MP ####[facility] Jpravqukos[address] [place] [address]Dr. Chrissy Frazier EGFR-AF STATELESS >60 Normal >=60 [facility] Comment on above: Performed By: #### C MP ####[facility] Zoucmtevlf25[address] [place] [address]Dr. Chrissy Freddie EGFR-NON AF STATELESS >60 Normal >=60 [facility] Comment on above: Performed By: #### C MP ####[facility] Hygqfmjclf32[address] [place] [address]Dr. Chrissy Freddie Globulin (S) [Mass/Vol] 3.7 g/dL Normal [facility] Comment on above: Performed By: #### C MP ####[facility] Ubbzaobxkm5987[address] [place], [place] [address]Dr. Chrissy Freddie Glucose [Mass/Vol] 108 mg/dL Critically high 74-106 [facility] Comment on above: Performed By: #### C MP ####[facility] Zmanagfjgw9707 [place] [address]Dr. Chrissy Freddie Potassium [Moles/Vol] 3.8 mmol/L Normal 3.5-5.1 [facility] Comment on above: Performed By: #### C MP ####[facility] Comotsurtp5233 [place] [address]Dr. Chrissy Freddie Protein [Mass/Vol] 7.6 g/dL Normal 6.4-8.2 [facility] Comment on above: Performed By: #### C MP ####[facility] Kbstcwntqn3606 [place] [address]Dr. Chrissy Frazier Sodium [Moles/Vol] 138 mmol/L Normal 136-145 [facility] Comment on above: Performed By: #### C MP ####[facility] Lszmugcwyg75[address] [place] [address]Dr. Chrissy Freddie Urea nitrogen [Mass/Vol] 12.0 mg/dL Normal 7.0-18.0 [facility] Comment on above: Performed By: #### C MP ####[facility] Gylrduggkw5601[address] [place], [place] [address]Dr. Chrissy Frazier Urea nitrogen/Creatinine [Mass ratio] 9.7 mg/mg Normal [facility] Comment on above: Performed By: #### C MP ####[facility] Gqhhrxcwwd364[address] [place], [place] [address]Dr. Chrissy Frazier AMMONIAon 03-29-2022 Ammonia (P) [Moles/Vol] 27 umol/L Normal 11-32 [facility] Comment on above: Performed By: #### A MM ####[facility] Cpuuwgoeme4417[address] [place], [place] [address]Dr. Chrissy Frazier AMYLASEon 03-29-2022 Amylase [Catalytic activity/Vol] 29 U/L Normal 25-115 [facility] Comment on above: Performed By: #### L IPA, TERRENCE ####[facility] Vnuxqyjrxh2354[address] [place], [place] [address]Dr. Chrissy Frazier CBC AUTO DIFFon 03-29-2022 BASO # 0.0 103/ul Normal 0.0-0.1 [facility] Comment on above: Performed By: #### C BC ####[facility] Qriqamtmsc3760[address] [place], [place] [address]Dr. Chrissy Frazier Basophils/100 WBC (Bld) 0.2 % Normal 0.2-2.0 [facility] Comment on above: Performed By: #### C BC ####[facility] Omodqtuooq9614[address] [place], [place] [address]Dr. Chrissy Frazier EO # 0.0 103/ul Normal 0.0-0.7 [facility] Comment on above: Performed By: #### C BC ####[facility] Vpwekuaflc9274[address] [place], [place] [address]Dr. Chrissy Frazier Eosinophils/100 WBC (Bld) 0.4 % Critically low 0.9-7.0 [facility] Comment on above: Performed By: #### C BC ####[facility] Ousvkdnuwg0699[address] [place], [place] [address]Dr. Chrissy Frazier Erythrocyte distribution width (RBC) [Ratio] 13.6 % Normal 11.0-15.0 [facility] Comment on above: Performed By: #### C BC ####[facility] Uzkvcugold60[address] [place] [address]Dr. Chrissy Frazier Hematocrit (Bld) [Volume fraction] 45.2 % Normal 42.0-54.0 [facility] Comment on above: Performed By: #### C BC ####[facility] Ghcjtdpphs9644[address] [place], [place] [address]Dr. Chrissy Frazier Hemoglobin (Bld) [Mass/Vol] 14.8 g/dL Normal 14.0-18.0 [facility] Comment on above: Performed By: #### C BC ####[facility] Yuihduxlee082[address] [place], [place] [address]Dr. Tishrowan Frazier IG # 0.03 10e3/ul Normal 0.00-0.03 [facility] Comment on above: Performed By: #### C BC ####[facility] Qerjoomnou0001[address] [place], [place] [address]Dr. Chrissy Frazier IG % 0.3 % Normal 0.0-0.5 [facility] Comment on above: Performed By: #### C BC ####[facility] Xovfagbcrn0199[address] [place], [place] [address]Dr. Chrissy Frazier LYMPH # 2.0 103/ul Normal 1.2-3.8 [facility] Comment on above: Performed By: #### C BC ####[facility] Rrvwakumma9912[address] [place], [place] [address]Dr. Chrissy Freddie Lymphocytes/100 WBC (Bld) 18.3 % Critically low 20.5-60.0 [facility] Comment on above: Performed By: #### C BC ####[facility] Xaeqxcdvyz719[address] [place], [place] [address]Dr. Tishrowan Frazier MANUAL DIFF REQ NO Normal [facility] Comment on above: Performed By: #### C BC ####[facility] Fvgioqndcg6705[address] [place], [place] [address]Dr. Chrissy Frazier MCH (RBC) [Entitic mass] 28.5 pg Normal 25.9-34.0 [facility] Comment on above: Performed By: #### C BC ####[facility] Coskqobjlv[address] [place] [address]Dr. Chrissy Frazier MCHC (RBC) [Mass/Vol] 32.7 g/dL Normal 29.9-35.2 [facility] Comment on above: Performed By: #### C BC ####[facility] Gnmrznohdr[address] [place], [place] [address]Dr. Chrissy Frazier MCV (RBC) [Entitic vol] 87.1 fL Normal 80.0-94.0 [facility] Comment on above: Performed By: #### C BC ####[facility] Hhelnaovqe3823[address] [place], [place] [address]Dr. Chrissy Frazier MONO # 0.9 103/ul Critically high 0.3-0.8 [facility] Comment on above: Performed By: #### C BC ####[facility] Mgcutnkssv8555[address] [place], [place] [address]Dr. Chrissy Frazier Monocytes/100 WBC (Bld) 8.6 % Normal 1.7-12.0 [facility] Comment on above: Performed By: #### C BC ####[facility] Imvfdwhyyq05[address] [place], [place] [address]Dr. Tishrowan Frazier NEUT # 7.8 103/ul Critically high 1.4-6.5 [facility] Comment on above: Performed By: #### C BC ####[facility] Ydiobdxfyv6[address] [place], [place] [address]Dr. Chrissy Frazier Neutrophils/100 WBC (Bld) 72.2 % Normal 43.0-75.0 [facility] Comment on above: Performed By: #### C BC ####[facility] Zlsinktzsh13[address] [place], [place] [address]Dr. Chrissy Frazier Platelet mean volume (Bld) [Entitic vol] 10.1 fL Normal 9.5-13.5 [facility] Comment on above: Performed By: #### C BC ####[facility] Yzepdxrrnm9[address] [place] [id number]. Chrissy Frazier PLT 329 103/ul Normal 150-450 [facility] Comment on above: Performed By: #### C BC ####[facility] Jqxnflvaig3438 [place] [id number]. Chrissy Frazier RBC 5.19 106/ul Normal 4.70-6.10 [facility] Comment on above: Performed By: #### C BC ####[facility] Airwvamvka9034 [place] [id number]. Chrissy Frazier WBC 10.8 103/ul Normal 4.0-11.0 [facility] Comment on above: Performed By: #### C BC ####[facility] Ornctzcyba4[address] [place] [address]Dr. Chrissy Frazier LIPASEon 03-29-2022 Lipase [Catalytic activity/Vol] 58.0 U/L Critically low 73.0-393.0 [facility] Comment on above: Performed By: #### L TERRENCE VICTORIA ####[facility] Lmwcsbrdnm[address] [place] [address]Dr. Chrissy Frazier NM HEPATOBILIARY SCAN W EFon 03-29-2022 NM HEPATOBILIARY SCAN W EF Normal [facility] PROF 14(COMP METB)on 022 Albumin [Mass/Vol] 3.8 g/dL Normal 3.4-5.0 [facility] Comment on above: Performed By: #### C MP ####[facility] Laczwyzvgb[address] [place] [address]Dr. Chrissy Frazier Albumin/Globulin [Mass ratio] 1.0 {ratio} Normal [facility] Comment on above: Performed By: #### C MP ####[facility] Eemlfhpjms7144 [place] [id number]. Tishrowan Frazier ALP [Catalytic activity/Vol] 69 U/L Normal 46-116 [facility] Comment on above: Performed By: #### C MP ####[facility] Uyuaifyckb89[address] [place] [address]Dr. Chrissy Frazier ALT [Catalytic activity/Vol] 117 U/L Critically high 16-63 [facility] Comment on above: Performed By: #### C MP ####[facility] Qgtxnvynjz9509 [place] [id number]. Chrissy Frazier Anion gap [Moles/Vol] 16.7 mmol/L Normal [facility] Comment on above: Performed By: #### C MP ####[facility] Poaugehsbu8442 [place] [phone]. Chrissy Frazier AST [Catalytic activity/Vol] 77 U/L Critically high 15-37 [facility] Comment on above: Performed By: #### C MP ####[facility] Xsvljowduv9123 [place] [id number]. Chrissy Freddie Bilirubin [Mass/Vol] 1.5 mg/dL Critically high 0.2-1.0 [facility] Comment on above: Performed By: #### C MP ####[facility] Gedjkilxzj35[address] [place] [address]Dr. Tishrowan Freddie Calcium [Mass/Vol] 8.1 mg/dL Critically low 8.5-10.1 [facility] Comment on above: Performed By: #### C MP ####[facility] Emmekzumpq9306 [place] [address]Dr. Chrissy Freddie Chloride [Moles/Vol] 101 mmol/L Normal 98-107 [facility] Comment on above: Performed By: #### C MP ####[facility] Wxsrbpwqpr1799 [place] [phone]. Chrissy Freddie CO2 [Moles/Vol] 24.5 mmol/L Normal 21.0-32.0 [facility] Comment on above: Performed By: #### C MP ####[facility] Xkblajsbyf4988 [place] [phone]. Chrissy Freddie Creatinine [Mass/Vol] 1.17 mg/dL Normal 0.70-1.30 [facility] Comment on above: Performed By: #### C MP ####[facility] Rqjvsrlxng5610 [place] [phone]. Chrissy Freddie EGFR-AF STATELESS >60 Normal >=60 [facility] Comment on above: Performed By: #### C MP ####[facility] Uvmqavszvf4287 [place] [phone]. Chrissy Frazier EGFR-NON AF STATELESS >60 Normal >=60 [facility] Comment on above: Performed By: #### C MP ####[facility] Migcdwmslx8356 [place] [id number]. Chrissy Frazier Globulin (S) [Mass/Vol] 3.9 g/dL Normal [facility] Comment on above: Performed By: #### C MP ####[facility] Lxsskibuis4687 [place] [address]Dr. Chrissy Frazier Glucose [Mass/Vol] 104 mg/dL Normal 74-106 [facility] Comment on above: Performed By: #### C MP ####[facility] Ppttzxmvjy8793 [place] [address]Dr. Chrissy Frazier Potassium [Moles/Vol] 3.2 mmol/L Critically low 3.5-5.1 [facility] Comment on above: Performed By: #### C MP ####[facility] Hmgpadobpn8043 [place] [address]Dr. Chrissy Frazier Protein [Mass/Vol] 7.7 g/dL Normal 6.4-8.2 [facility] Comment on above: Performed By: #### C MP ####[facility] Lpjicpxppx3977 [place] [address]Dr. Chrissy Frazier Sodium [Moles/Vol] 139 mmol/L Normal 136-145 [facility] Comment on above: Performed By: #### C MP ####[facility] Gomawflydl32[address] [place] [address]Dr. Chrissy Frazier Urea nitrogen [Mass/Vol] 11.0 mg/dL Normal 7.0-18.0 [facility] Comment on above: Performed By: #### C MP ####[facility] Btehuciyez59[address] [place] [address]Dr. Chrissy Frazier Urea nitrogen/Creatinine [Mass ratio] 9.4 mg/mg Normal [facility] Comment on above: Performed By: #### C MP ####[facility] Unrysvnlxx9854 [place] [address]Dr. Chrissy Frazier US SINGLE QUAD RT UPPERon US SINGLE QUAD RT UPPER Normal [facility] AMMONIAon 03-28-2022 Ammonia (P) [Moles/Vol] 12 umol/L Normal 11-32 [facility] Comment on above: Performed By: #### A MM ####[facility] Npbvbjzwej7503 [place] [address]Dr. Chrissy Frazier CBC AUTO DIFFon 03-28-2022 BASO # 0.0 103/ul Normal 0.0-0.1 [facility] Comment on above: Performed By: #### C BC ####[facility] Pwftmzonbn24[address] [place], [place] [address]Dr. Chrissy Frazier Basophils/100 WBC (Bld) 0.1 % Critically low 0.2-2.0 [facility] Comment on above: Performed By: #### C BC ####[facility] Hdguiqqayb48[address] [place], [place] [address]Dr. Chrissy Frazier EO # 0.0 103/ul Normal 0.0-0.7 [facility] Comment on above: Performed By: #### C BC ####[facility] Cfowbqkzvd3347[address] [place], [place] [address]Dr. Chrissy Frazier Eosinophils/100 WBC (Bld) 0.0 % Critically low 0.9-7.0 [facility] Comment on above: Performed By: #### C BC ####[facility] Fqzvdezczz9915[address] [place], [place] [address]Dr. Chrissy Frazier Erythrocyte distribution width (RBC) [Ratio] 14.0 % Normal 11.0-15.0 [facility] Comment on above: Performed By: #### C BC ####[facility] Zemciflsik8[address] [place], [place] [address]Dr. Chrissy Frazier Hematocrit (Bld) [Volume fraction] 44.2 % Normal 42.0-54.0 [facility] Comment on above: Performed By: #### C BC ####[facility] Dkqghtxaeh35[address] [place], [place] [address]Dr. Chrissy Freddie Hemoglobin (Bld) [Mass/Vol] 14.7 g/dL Normal 14.0-18.0 [facility] Comment on above: Performed By: #### C BC ####[facility] Yijctgdusr6[address] [place] [address]Dr. Tishrowan Frazier IG # 0.10 10e3/ul Critically high 0.00-0.03 [facility] Comment on above: Performed By: #### C BC ####[facility] Pfxdiqqhgi2153 [place] [address]Dr. Chrissy Frazier IG % 0.5 % Normal 0.0-0.5 [facility] Comment on above: Performed By: #### C BC ####[facility] Ysnuonwjau9339 [place] [address]Dr. Chrissy Frazier LYMPH # 2.6 103/ul Normal 1.2-3.8 [facility] Comment on above: Performed By: #### C BC ####[facility] Andwnzdapu3585 [place] [address]Dr. Chrissy Frazier Lymphocytes/100 WBC (Bld) 13.8 % Critically low 20.5-60.0 [facility] Comment on above: Performed By: #### C BC ####[facility] Ojrqyezoqo4244 [place] [address]Dr. Tishrowan Frazier MANUAL DIFF REQ NO Normal [facility] Comment on above: Performed By: #### C BC ####[facility] Hqzlwzxljp7912 [place] [address]Dr. Chrissy Freddie MCH (RBC) [Entitic mass] 29.0 pg Normal 25.9-34.0 [facility] Comment on above: Performed By: #### C BC ####[facility] Qzdxpvwrta6002 [place] [address]Dr. Chrissy Freddie MCHC (RBC) [Mass/Vol] 33.3 g/dL Normal 29.9-35.2 [facility] Comment on above: Performed By: #### C BC ####[facility] Wwnottfbos7815 [place] [address]Dr. Chrissy Freddie MCV (RBC) [Entitic vol] 87.2 fL Normal 80.0-94.0 [facility] Comment on above: Performed By: #### C BC ####[facility] Ujxgeqdvxy9633 [place] [id number]. Chrissy Frazier MONO # 1.1 103/ul Critically high 0.3-0.8 [facility] Comment on above: Performed By: #### C BC ####[facility] Mpkvcagelt4260 [place] [address]Dr. Chrissy Frazier Monocytes/100 WBC (Bld) 5.9 % Normal 1.7-12.0 [facility] Comment on above: Performed By: #### C BC ####[facility] Zzgvfgcjgj95[address] [place], [place] [address]Dr. Chrissy Freddie NEUT # 15.1 103/ul Critically high 1.4-6.5 [facility] Comment on above: Performed By: #### C BC ####[facility] Jyfhdkohqo3816[address] [place], [place] [address]Dr. Tishrowan Frazier Neutrophils/100 WBC (Bld) 79.7 % Critically high 43.0-75.0 [facility] Comment on above: Performed By: #### C BC ####[facility] Mcisoctzao6689 [place] [address]Dr. Chrissy Frazier Platelet mean volume (Bld) [Entitic vol] 10.3 fL Normal 9.5-13.5 [facility] Comment on above: Performed By: #### C BC ####[facility] Apllusrwvf14[address] [place], [place] [address]Dr. Chrissy Frazier PLT 358 103/ul Normal 150-450 [facility] Comment on above: Performed By: #### C BC ####[facility] F[address]luqhtj[address] [place], [place] [address]Dr. Chrissy Frazier RBC 5.07 106/ul Normal 4.70-6.10 [facility] Comment on above: Performed By: #### C BC ####[facility] Kteevffqnp[address] [place], [place] [address]Dr. Chrissy Frazier WBC 18.9 103/ul Critically high 4.0-11.0 [facility] Comment on above: Performed By: #### C BC ####[facility] Yqobgdemgg2807 [place] [address]DrNancy Frazier PROF 14(COMP METB)on 022 Albumin [Mass/Vol] 3.9 g/dL Normal 3.4-5.0 [facility] Comment on above: Performed By: #### C MP ####[facility] [facility] [address] [place] [address]Dr. Chrissy Frazier Albumin/Globulin [Mass ratio] 1.1 {ratio} Normal [facility] Comment on above: Performed By: #### C MP ####[facility] [address]xszrarkw[address] [place] [address]Dr. Chrissy Frazier ALP [Catalytic activity/Vol] 65 U/L Normal 46-116 [facility] Comment on above: Performed By: #### C MP ####[facility] Kmhrncnogp[address] [place], [place] [address]Dr. Chrissy Frazier ALT [Catalytic activity/Vol] 46 U/L Normal 16-63 [facility] Comment on above: Performed By: #### C MP ####[facility] Rwdjiflxrn[address] [place], [place] [address]Dr. Chrissy Frazier Anion gap [Moles/Vol] 13.2 mmol/L Normal [facility] Comment on above: Performed By: #### C MP ####[facility] Fewtfmeqhn20[address] [place], [place] [address]DrNancy Frazier AST [Catalytic activity/Vol] 33 U/L Normal 15-37 [facility] Comment on above: Performed By: #### C MP ####[facility] Cfjxvmrzrm7[address] [place], [place] [address]Dr. Chrissy Frazier Bilirubin [Mass/Vol] 0.8 mg/dL Normal 0.2-1.0 [facility] Comment on above: Performed By: #### C MP ####[facility] Mrcfurzsdz9[address] [place], [place] [address]Dr. Chrissy Frazier Calcium [Mass/Vol] 8.1 mg/dL Critically low 8.5-10.1 [facility] Comment on above: Performed By: #### C MP ####[facility] [address]vvdthmius[address] [place] [address]Dr. Chrissy Frazier Chloride [Moles/Vol] 102 mmol/L Normal 98-107 [facility] Comment on above: Performed By: #### C MP ####[facility] Bmntkhcctg[address] [place] [address]Dr. Chrissy Frazier CO2 [Moles/Vol] 24.0 mmol/L Normal 21.0-32.0 [facility] Comment on above: Performed By: #### C MP ####[facility] Csatdmfwxi[address] [place], [place] [address]Dr. Chrissy Frazier Creatinine [Mass/Vol] 1.26 mg/dL Normal 0.70-1.30 [facility] Comment on above: Performed By: #### C MP ####[facility] Foadsgldut[address] [place], [place] [address]Dr. Chrissy Frazier EGFR-AF STATELESS >60 Normal >=60 [facility] Comment on above: Performed By: #### C MP ####[facility] Ubrkwywqzt[address] [place], [place] [address]Dr. Chrissy Frazier EGFR-NON AF STATELESS >60 Normal >=60 [facility] Comment on above: Performed By: #### C MP ####[facility] Nrgxilsjrm[address] [place] [address]Dr. Chrissy Frazier Globulin (S) [Mass/Vol] 3.7 g/dL Normal [facility] Comment on above: Performed By: #### C MP ####[facility] Mwcgifybbz[address] [place] [address]Dr. Chrissy Frazier Glucose [Mass/Vol] 119 mg/dL Critically high 74-106 [facility] Comment on above: Performed By: #### C MP ####[facility] Xxabmpvzra4[address] [place] [address]Dr. Chrissy Frazier Potassium [Moles/Vol] 3.2 mmol/L Critically low 3.5-5.1 [facility] Comment on above: Performed By: #### C MP ####[facility] Ouuleoflfk[address] [place] [address]Dr. Chrissy Frazier Protein [Mass/Vol] 7.6 g/dL Normal 6.4-8.2 The [facility] Comment on above: Performed By: #### C MP ####[facility] Gpsantyjfm[address] [place] [address]Dr. Chrissy Frazier Sodium [Moles/Vol] 136 mmol/L Normal 136-145 [facility] Comment on above: Performed By: #### C MP ####[facility] Jbmkdammfe9[address] [place], [place] [address]Dr. Chrissy Frazier Urea nitrogen [Mass/Vol] 14.0 mg/dL Normal 7.0-18.0 [facility] Comment on above: Performed By: #### C MP ####[facility] Lbxsuvmkkb37[address] [place], [place] [address]Dr. Chrissy Frazier Urea nitrogen/Creatinine [Mass ratio] 11.1 mg/mg Normal [facility] Comment on above: Performed By: #### C MP ####[facility] Jjcihfonbs[address] [place], [place] [address]Dr. Chrissy Freddie CBC W MANUAL DIFFon 03-27-20 22 ATYPICAL LYMPH # Normal [facility] Comment on above: Performed By: #### C BCMAN ####[facility] Tsggvhynuh[address] [place], [place] [address]Dr. Chrissy Frazier ATYPICAL LYMPH % Normal [facility] Comment on above: Performed By: #### C BCMAN ####[facility] Srxdarxbcs[address] [place], [place] [address]Dr. Chrissy Frazier BAND # 0.0 103/ul Normal 0.0-0.3 [facility] Comment on above: Performed By: #### C BCMAN ####[facility] L[address]qaalcn[address] [place] [address]Dr. Chrissy Frazier BAND % 0 % Normal 0-5 [facility] Comment on above: Performed By: #### C BCMAN ####[facility] [address]oz[address] [place] [id number]. Chrissy Frazier BASOM # 0.00 103/ul Normal 0.00-0.10 [facility] Comment on above: Performed By: #### C BCMAN ####[facility] Fttwizzqyn[address] [place] [id number]. Chrissy Frazier BASOM % 0.0 % Critically low 0.2-2.0 [facility] Comment on above: Performed By: #### C BCMAN ####[facility] C[address]rh[address]sgk[address] [place] [address]Dr. Chrissy Frazier BLAST # Normal [facility] Comment on above: Performed By: #### C BCLEANDRO ####[facility] Blpmkqezpw[address] [place] [address]Dr. Chrissy Frazier BLAST % Normal [facility] Comment on above: Performed By: #### C BCLEANDRO ####[facility] Uvgpbwtzzh[address] [place], [place] [address]Dr. Chrissy Frazier CORRECTED WBC Normal 4.0-11.0 The [facility] Comment on above: Performed By: #### C BCLEANDRO ####[facility] Nbhzhyxvuo[address] [place], [place] [address]Dr. Chrissy Frazier EOS # 0.00 103/ul Normal 0.00-0.70 [facility] Comment on above: Performed By: #### C BCLEANDRO ####[facility] Q[address]ceovecy[address] [place] [address]Dr. Chrissy Frazier EOS% 0.0 % Critically low 0.9-7.0 [facility] Comment on above: Performed By: #### C BCLEANDRO ####[facility] Aqpmasngmj[address] [place] [address]Dr. Chrissy Frazier HCT 47.3 % Normal 42.0-54.0 [facility] Comment on above: Performed By: #### C BCLEANDRO ####[facility] Wlcvjrvguq[address] [place], [place] [address]Dr. Chrissy Frazier HGB 16.4 g/dl Normal 14.0-18.0 [facility] Comment on above: Performed By: #### C ANTONETTE ####[facility] [address]edflot[address] [place], [place] [address]Dg. Chrissy Frazier LYMPHM # 2.31 103/ul Normal 1.20-3.80 [facility] Comment on above: Performed By: #### Silverio WHITMAN ####[facility] C[address]md[address]wfl[address] [place], [place] [address]Qt. Chrissy Frazier LYMPHM% 9.0 % Critically low 20.5-60.0 [facility] Comment on above: Performed By: #### C ANTONETTE ####[facility] Mqqacxffhi67[address] [place] [phone]. Chrissy Frazier MCH 28.6 pg Normal 25.9-34.0 [facility] Comment on above: Performed By: #### iSlverio WHITMAN ####[facility] Vx[address]xqrzpqh[address] [place] [phone]. Chrissy Frazier MCHC 34.7 g/dl Normal 29.9-35.2 [facility] Comment on above: Performed By: #### Silverio WHITMAN ####[facility] Xzgcdxtcys[address] [place] [phone]. Chrissy Frazier MCV 82.4 fL Normal 80.0-94.0 [facility] Comment on above: Performed By: #### Silverio WHITMAN ####[facility] G[address]bvhlvcz[address] [place] [phone]. Chrissy Frazier METAMYELOCYTE # Normal The [facility] Comment on above: Performed By: #### Silverio WHITMAN ####[facility] Ggbocslzqg44[address] [place] [phone]. Chrissy Frazier METAMYELOCYTE % Normal [facility] Comment on above: Performed By: #### C ANTONETTE ####[facility] Pglxmdxmau[address] [place] [phone]. Chrissy Frazier MONOM# 3.85 103/ul Critically high 0.30-0.80 [facility] Comment on above: Performed By: #### Silverio WHITMAN ####[facility] Fdpjycocqj[address] [place] [phone]. Chrissy Frazier MONOM% 15.0 % Critically high 1.7-12.0 [facility] Comment on above: Performed By: #### C ANTONETTE ####[facility] Jshyoszztz[address] [place] [phone]. Chrissy Frazier MPV 10.6 fL Normal 9.5-13.5 [facility] Comment on above: Performed By: #### C ANTONETTE ####[facility] Nndgktdnzw[address] [place] [phone]. Chrissy Frazier MYELOCYTE # Normal [facility] Comment on above: Performed By: #### C ANTONETTE ####[facility] Mrzeaerpwf[address] [place] [phone]. Chrissy Frazier MYELOCYTE % Normal [facility] Comment on above: Performed By: #### C ANTONETTE ####[facility] Mbifkylvck7[address] [place] [phone]. Chrissy Frazier NRBC Normal [facility] Comment on above: Performed By: #### C ANTONETTE ####[facility] Kaxfnoluud[address] [place] [phone]. Chrissy Frazier PLT 471 103/ul Critically high 150-450 [facility] Comment on above: Performed By: #### C ANTONETTE ####[facility] Ibzfguyuwe85[address] [place] [phone]. Chrissy Frazier RBC 5.74 106/ul Normal 4.70-6.10 [facility] Comment on above: Performed By: #### C ANTONETTE ####[facility] Qnimwjohcx8[address] [place] [phone]. Chrissy Frazier RDW 13.7 % Normal 11.0-15.0 [facility] Comment on above: Performed By: #### C ANTONETTE ####[facility] Hfjycguwsy[address] [place] [phone]. Chrissy Frazier SEG # 19.53 103/ul Critically high 1.40-6.50 [facility] Comment on above: Performed By: #### C ANTONETTE ####[facility] Pekieorxkm[address] [place] [address]Dr. Tihsrowan Frazier SEG % 76.0 % Critically high 43.0-75.0 [facility] Comment on above: Performed By: #### C BCMAN ####[facility] Wytzafiaui[address] [place] [address]Dr. Tishrowan Frazier TOXIC GRANULATION SLIGHT Normal [facility] Comment on above: Result Comment: few vacoules Performed By: #### C BCLEANDRO ####[facility] Pxusasycky[address] [place] [address]Dr. Chrissy Frazier WBC 25.7 103/ul Critically high 4.0-11.0 The [facility] Comment on above: Performed By: #### C ANTONETTE ####[facility] Ytwnpdeygr[address] [place] [address]Dr. Chrissy Frazier LACTATE/LACTIC ACIDon 2021 Lactate [Moles/Vol] 2.4 mmol/L Critically high 0.4-1.9 [facility] Comment on above: Performed By: #### L ACT ####[facility] Shgwbzfykg24[address] [place] [address]Dr. Chrissy Frazier Lactate [Moles/Vol] 3.5 mmol/L Critically high 0.4-1.9 [facility] Comment on above: Performed By: #### L ACT ####[facility] Tqekkbjfcf[address] [place] [address]Dr. Chrissy Frazier LIPASEon 03-27-2022 Lipase [Catalytic activity/Vol] 43.0 U/L Critically low 73.0-393.0 [facility] Comment on above: Performed By: #### C MP, LIPA ####[facility] Mjkvbowxhw[address] [place] [address]Dr. Chrissy Frazier PROF 14(COMP METB)on 022 Albumin [Mass/Vol] 4.7 g/dL Normal 3.4-5.0 The [facility] Comment on above: Performed By: #### C MP, LIPA ####[facility] Bjodxuanfk[address] [place] [address]Dr. Chrissy Frazier Albumin/Globulin [Mass ratio] 1.1 {ratio} Normal [facility] Comment on above: Performed By: #### C MP, LIPA ####[facility] Rlvjgiqwiw46[address] [place] [address]Dr. Chrissy Frazier ALP [Catalytic activity/Vol] 69 U/L Normal 46-116 [facility] Comment on above: Performed By: #### C MP, LIPA ####[facility] Xrvlnjrgvm55[address] [place] [address]Dr. Chrissy Frazier ALT [Catalytic activity/Vol] 47 U/L Normal 16-63 [facility] Comment on above: Performed By: #### C MP, LIPA ####[facility] Dasdibpvzx[address] [place], [place] [address]Dr. Chrissy Freddie Anion gap [Moles/Vol] 23.2 mmol/L Normal [facility] Comment on above: Performed By: #### C MP, LIPA ####[facility] Yazrhhzwft89[address] [place], [place] [address]Dr. Chrissy Freddie AST [Catalytic activity/Vol] 23 U/L Normal 15-37 [facility] Comment on above: Performed By: #### C MP, LIPA ####[facility] Zttbmjtjie39[address] [place], [place] [address]Dr. Chrissy Freddie Bilirubin [Mass/Vol] 0.7 mg/dL Normal 0.2-1.0 [facility] Comment on above: Performed By: #### C MP, LIPA ####[facility] Gzpckbwokk40[address] [place], [place] [address]Dr. Chrissy Freddie Calcium [Mass/Vol] 9.2 mg/dL Normal 8.5-10.1 [facility] Comment on above: Performed By: #### C MP, LIPA ####[facility] Phakrwlawq455[address] [place], [place] [address]Dr. Tishrowan Freddie Chloride [Moles/Vol] 97 mmol/L Critically low 98-107 [facility] Comment on above: Performed By: #### C MP, LIPA ####[facility] Abjxjynkkd85[address] [place], [place] [address]Dr. Yirowan Frazier CO2 [Moles/Vol] 18.2 mmol/L Critically low 21.0-32.0 [facility] Comment on above: Performed By: #### C MP, LIPA ####[facility] Gscrtvrjnh[address] [place] [address]Dr. Chrissy Frazier Creatinine [Mass/Vol] 1.77 mg/dL Critically high 0.70-1.30 [facility] Comment on above: Performed By: #### C MP, LIPA ####[facility] Zvehucngxx[address] [place], [place] [address]Dr. Chrissy Frazier EGFR-AF STATELESS 54 mL/min/1.73m2 Critically low >=60 [facility] Comment on above: Performed By: #### C MP, LIPA ####[facility] Njjdiphthd9[address] [place], [place] [address]Dr. Chrissy Frazier EGFR-NON AF STATELESS 45 mL/min/1.73m2 Critically low >=60 [facility] Comment on above: Performed By: #### C MP, LIPA ####[facility] Femgczktcz[address] [place], [place] [address]Dr. Chrissy Frazier Globulin (S) [Mass/Vol] 4.4 g/dL Normal [facility] Comment on above: Performed By: #### C MP, LIPA ####[facility] Bmcejdotvr8[address] [place], [place] [address]Dr. Chrissy Frazier Glucose [Mass/Vol] 131 mg/dL Critically high 74-106 [facility] Comment on above: Performed By: #### C MP, LIPA ####[facility] Iojseeqxxe60[address] [place], [place] [address]Dr. Chrissy Frazier Potassium [Moles/Vol] 3.4 mmol/L Critically low 3.5-5.1 [facility] Comment on above: Performed By: #### C MP, LIPA ####[facility] Mhlyximzfh89[address] [place], [place] [address]Dr. Chrissy Frazier Protein [Mass/Vol] 9.1 g/dL Critically high 6.4-8.2 [facility] Comment on above: Performed By: #### C MP, LIPA ####[facility] [address] [place], [place] [address]Fl. Chrissy Frazier Sodium [Moles/Vol] 135 mmol/L Critically low 136-145 [facility] Comment on above: Performed By: #### C MP, LIPA ####[facility] Djmarmxdbp8942 [place], [place] [address]Lz. Chrissy Frazier Urea nitrogen [Mass/Vol] 19.0 mg/dL Critically high 7.0-18.0 [facility] Comment on above: Performed By: #### C MANA, LIPA ####[facility] Y[address]jiweg[address] [place] [id number]. Chrissy Frazier Urea nitrogen/Creatinine [Mass ratio] 10.7 mg/mg Normal [facility] Comment on above: Performed By: #### C MANA, LIPA ####[facility] Toculckxio3[address] [place] [id number]. Chrissy Frazier BMPon 11-03-2020 Anion gap [Moles/Vol] 14 mmol/L Normal 6-16 [facility] Comment on above: Performed By: #### 2 [id number], [id number], [id number] #### [facility] [address] [place] [address] Calcium [Mass/Vol] 9.0 mg/dL Normal 8.9-11.1 [facility] Comment on above: Performed By: #### 2 [id number], [id number], [id number] #### [facility] [address] [place] [address] Chloride [Moles/Vol] 104 mmol/L Normal 101-111 [facility] Comment on above: Performed By: #### 2 [id number], [id number], [id number] #### [facility] [address] [place] [address] CO2 [Moles/Vol] 21 mmol/L Normal 21-31 [facility] Comment on above: Performed By: #### 2 500561, [id number], [id number] #### [facility] [address] [place] [address] Creatinine [Mass/Vol] 1.3 mg/dL Normal 0.5-1.3 [facility] Comment on above: Performed By: #### 2 370734, [id number], [id number] #### [facility] [address] [place] [address] Glucose [Mass/Vol] 111 mg/dL Normal 55-199 [facility] Comment on above: Result Comment: If t his glucose result represents a fasting glucose, interpretation should refer to the following reference range: 55-99 mg/dL Performed By: #### 2 [id number], [id number], [id number] #### [facility] [address] [place] [address] Potassium [Moles/Vol] 2.9 mmol/L Low 3.5-5.3 [facility] Comment on above: Performed By: #### 2 409189, [id number], [id number] #### [facility] [address] [place] [address] Sodium [Moles/Vol] 136 mmol/L Normal 135-145 [facility] Comment on above: Performed By: #### 2 197337, [id number], [id number] #### [facility] [address] [place] [address] Urea nitrogen [Mass/Vol] 14 mg/dL Normal 5-21 [facility] Comment on above: Performed By: #### 2 056617, [id number], [id number] #### [facility] [address] [place] [address] Urea nitrogen/Creatinine [Mass ratio] 11 No Units Normal 10-20 [facility] Comment on above: Performed By: #### 2 496122, [id number], [id number] #### [facility] [address] [place] [address] Lipase Levelon 11-03-2020 Lipase [Catalytic activity/Vol] 66 unit/L High 13-58 [facility] Comment on above: Performed By: #### 2 091043, [id number], [id number] #### [facility] [address] [place] [address] Physician Orderon 11-03-2020 Physician Order [id number] 3#1.00CD:127 Normal [facility] eGFRon 11-03-2020 GFR/1.73 sq M predicted among blacks MDRD (S/P/Bld) [Vol rate/Area] mL/min/{1.73_m2} Normal >=59 [facility] Comment on above: Order Comment: Order added by Discern Expert. Result Comment: eGFR is race adjusted. AA=. Performed By: #### 2 [id number], [id number], [id number] #### [facility] [address] [place] [address] GFR/1.73 sq M predicted among non-blacks MDRD (S/P/Bld) [Vol rate/Area] mL/min/{1.73_m2} Normal >=59 [facility] Comment on above: Order Comment: Order added by Discern Expert. Result Comment: Plasma Table Operator lindsay kidney disease could be indicated at eGFR's of less than 60 mL/min/1.73m2. Kidney failure is indicated at less than 15 mL/min/1.73m2. Performed By: #### 2 328059, 3912596, [id number] #### [facility] [address] [place] [address] Encounters Encounter Date Encounter Type Care Provider Facility Start: 05-16-2024 End: 05-16-2024 ambulatory TUNG NORTHEIM Not Available Start: 03-07-2024 End: 03-07-2024 ambulatory TUNG NORTHEIM Not Available Start: 03-30-2023 ambulatory Luis Angel Muniz cility:[facility] Start: 01-03-2023 End: 01-04-[address] MELODY MARIO . Facility: Start: 01-03-2023 End: 01-04-2023 ambulatory RAQUEL BANKS Facility:[facility] Start: 12-29-2022 End: 12-30-[address] MELODY MARIO . Facility:[facility] Start: 12-13-2022 End: 12-14-2022 ambulatory [facility] Start: 11-24-2022 End: 11-24-2022 ambulatory [facility] Start: 11-16-2022 End: 11-17-2022 ambulatory [...] Date Payer Category Payer Self-pay 1990 Unknown [id number] 01.06. [id number] 1990 Unknown [id number] [id number] 1990 Unknown [id number] 0.1.452805.3.579.2 1990 Unknown [id number] 0.1.151241.3.579.2593 1990 Unknown [id number] 0.1.004580.3.579.259 1990 Unknown [id number] 2.16.84 0.1.494769.3.579.2.593 1990 Unknown [id number] 2.16.84 0.1.074195.3.579.2.593 1990 Unknown [id number] 2.16.84 0.1.211718.3.579.2.593 1990 Unknown [id number] 2.16.84 0.1.855576.3.579.2.593 1990 Unknown [id number] 2.16.84 0.1.695005.3.579.2.593 1990 Unknown [id number] 2.16.84 0.1.677556.3.579.2.593 1990 Unknown [id number] 2.16.84 0.1.519723.3.579.2.593 1990 Unknown [id number] 2.16.84 0.1.269232.3.579.2.593 1990 Unknown [id number] 2.16.84 0.1.681818.3.579.2.1259 1990 Unknown [id number] 2.16.84 0.1.214509.3.579.2.1259 1959 Private Health Insurance [id number] Unknown [id number] 2.16.8 [id number] Progress note 11-24-2022 Note Date & Type [...] report that his father had a fatal CA at the age of 54. Stress test [...] section and content) DATE CREATED AUTHOR 11/04/2020 [facility] DATE CREATED AUTHOR AUTHOR'S ORGANIZ ATION 01/08/2023 [facility] DATE CREATED AUTHOR AUTHOR'S ORGANIZ ATION 02/07/2023 [facility] DATE CREATED AUTHOR AUTHOR'S ORGANIZ ATION 04/01/2023 [facility] DATE CREATED AUTHOR AUTHOR'S ORGANIZ ATION 05/17/2024 [facility] FOR RECORDS PERTAINING TO PATIENTS WHO [...] BE BASED ON THE PRIMARY CLINICAL RECORDS. [employer] provides no warranty or guarantee of the accuracy or completeness of information in this document.
== END 2024-07-24 09:09 | disposition home or self-care (01) ==
LOC: CT 09:08
PROVIDERS: PCP Family Medicine; Visit Provider Podiatrist Foot & Ankle Surgery
DX: M19.071 Primary osteoarthritis, right ankle and foot (principal); M24.674 Ankylosis, right foot
CPT/HCPCS: 73700

== ENCOUNTER 2024-10-23 13:16 | Outpatient (OUT) | payer OTHER, SELFPAY ==
--- NOTE | 2024-10-23 | XR_ITS ---
The [address] [address] Patient Name: PAULINA CHARLES MRN: [id number] date: 1990 Sex: M Assigned Patient Location: Current Patient Location: Accession/Order Number: [id number] Exam Date: 10/23/2024 13:20 Report Date: 10/25/2024 05:44 At the request of: SHALINI IVAN Procedure: XR foot RT min 3V PROCEDURE: XR foot RT min 3V HISTORY: RIGHT FOOT PAIN COMPARISON: XR foot right 07/10/2024 FINDINGS: BONES:Prior medial midfoot fusion without evidence of hardware fracture loosening. No bone fracture dislocation. SOFT TISSUES:No visible soft tissue swelling. EFFUSION:None visible. OTHER: Negative. XR/XR foot RT min 3V IMPRESSION: 1. Stable surgical changes without evidence of hardware failure or change in alignment. Electronically authenticated by: KYREE DOHERTY Date: 10/25/2024 05:44
--- OUTSIDE RECORDS SUMMARY | 2024-10-23 13:37 | XMS_ITS | CCD ---
Author Organization [facility] CliniSyms Care Team Providers Care Health Information Managers Name Role Phone RAQUEL BANKS Referring Unavailable [...] to adverse reactions to drug (disorder) 09-28-20 [facility] Repository (1 source) Sulfamethoxazole / Trimethoprim; Translations: [SULFAMETHOXAZOLE-TR IMETHOPRIM] Drug Allergy 01-27-20 [facility] Repository (1 source) Clarithromycin Drug Allergy [facility] Repository (1 source) Sulfamethoxazole / Trimethoprim Drug Allergy 05-27-20 17 [facility] Repository (1 source) Sulfamethoxazole Drug Allergy 03-20-20 [facility] Repository (1 source) Trimethoprim Drug Allergy 03-20-20 [facility] Repository Problems Active Problems Problem [...] Episodic Other aftercare (1 source) Other intermediate designer (current) drug therapy; Translations: [OTH CORRECTION CURRENT [...] IGG ABS 0.09 Index Value Normal 0.00-0.79 [facility] Comment on above: Result Comment: Nega tive <0.80 Equivocal 0.80 - 0.89 Positive >0.89 Performed By: #### H PYLLC ####[facility] Atmhxwfnap[address] [place] [address]Dr. Chrissy Frazier AMYLASEon 01-04-2023 Amylase [Catalytic activity/Vol] 34 U/L Normal 25-115 [facility] Comment on above: Performed By: #### A MY ####[facility] [address]fsqyvuzc[address] [place], [place] [address]Dr. Chrissy Freddie CBC AUTO DIFFon 01-04-2023 BASO # 0.0 103/ul Normal 0.0-0.1 [facility] Comment on above: Performed By: #### C BC ####[facility] Hhkazznkum[address] [place], [place] [address]Dr. Chrissy Frazier Basophils/100 WBC (Bld) 0.1 % Critically low 0.2-2.0 [facility] Comment on above: Performed By: #### C BC ####[facility] Nwmxthstcd32[address] [place], [place] [address]Dr. Tihsrowan Frazier EO # 0.0 103/ul Normal 0.0-0.7 [facility] Comment on above: Performed By: #### C BC ####[facility] Ksmvcgilqd[address] [place], [place] [address]Dr. Chrissy Frazier Eosinophils/100 WBC (Bld) 0.1 % Critically low 0.9-7.0 [facility] Comment on above: Performed By: #### C BC ####[facility] Iaxzodgyvz[address] [place], [place] [address]DrNancy Frazier Erythrocyte distribution width (RBC) [Ratio] 14.0 % Normal 11.0-15.0 [facility] Comment on above: Performed By: #### C BC ####[facility] Ekmaeowone[address] [place], [place] [address]Dr. Chrissy Frazier Hematocrit (Bld) [Volume fraction] 40.4 % Critically low 42.0-54.0 [facility] Comment on above: Performed By: #### C BC ####[facility] Hlnelysyuw[address] [place] [address]Dr. Chrissy Frazier Hemoglobin (Bld) [Mass/Vol] 13.8 g/dL Critically low 14.0-18.0 [facility] Comment on above: Performed By: #### C BC ####[facility] Atwexjlabh87[address] [place] [address]Dr. Chrissy Freddie IG # 0.05 10e3/ul Critically high 0.00-0.03 [facility] Comment on above: Performed By: #### C BC ####[facility] Idjhezrplx09[address] [place] [address]Dr. Tishrowan Frazier IG % 0.3 % Normal 0.0-0.5 [facility] Comment on above: Performed By: #### C BC ####[facility] Lbjexwqskw5[address] [place], [place] [address]Dr. Chrissy Frazier LYMPH # 1.7 103/ul Normal 1.2-3.8 [facility] Comment on above: Performed By: #### C BC ####[facility] Ccmtdyigeg60[address] [place] [address]Dr. Chrissy Freddie Lymphocytes/100 WBC (Bld) 11.9 % Critically low 20.5-60.0 [facility] Comment on above: Performed By: #### C BC ####[facility] Qxnuwasxlp78[address] [place] [address]Dr. Chrissy Frazier MANUAL DIFF REQ NO Normal [facility] Comment on above: Performed By: #### C BC ####[facility] Grvxbqsegf5[address] [place] [id number]. Chrissy Freddie MCH (RBC) [Entitic mass] 29.3 pg Normal 25.9-34.0 [facility] Comment on above: Performed By: #### C BC ####[facility] Cxwhgsjfjx7107 [place] [id number]. Tishrowan Frazier MCHC (RBC) [Mass/Vol] 34.2 g/dL Normal 29.9-35.2 [facility] Comment on above: Performed By: #### C BC ####[facility] Yzolvdtdjk0998 [place] [id number]. Chrissy Frazier MCV (RBC) [Entitic vol] 85.8 fL Normal 80.0-94.0 [facility] Comment on above: Performed By: #### C BC ####[facility] Odzjwedlag9094 [place] [id number]. Chrissy Freddie MONO # 0.6 103/ul Normal 0.3-0.8 [facility] Comment on above: Performed By: #### C BC ####[facility] Tbauakrcob5637 [place] [address]Dr. Chrissy Freddie Monocytes/100 WBC (Bld) 4.2 % Normal 1.7-12.0 [facility] Comment on above: Performed By: #### C BC ####[facility] Thwygcgpel[address] [place], [place] [address]Dr. Chrissy Frazier NEUT # 12.0 103/ul Critically high 1.4-6.5 [facility] Comment on above: Performed By: #### C BC ####[facility] Vcjpwixvfx[address] [place], [place] [address]Dr. Tishrowan Frazier Neutrophils/100 WBC (Bld) 83.4 % Critically high 43.0-75.0 [facility] Comment on above: Performed By: #### C BC ####[facility] Xaqhzqxjfe658[address] [place], [place] [address]Dr. Chrissy Freddie Platelet mean volume (Bld) [Entitic vol] 10.4 fL Normal 9.5-13.5 [facility] Comment on above: Performed By: #### C BC ####[facility] Bubatuinil[address] [place], [place] [address]Dr. Chrissy Frazier PLT 313 103/ul Normal 150-450 [facility] Comment on above: Performed By: #### C BC ####[facility] Atduqkgtqb99[address] [place] [phone]. Chrissy rFazier RBC 4.71 106/ul Normal 4.70-6.10 [facility] Comment on above: Performed By: #### C BC ####[facility] Brmyrvslkg45[address] [place] [phone]. Chrissy Frazier WBC 14.4 103/ul Critically high 4.0-11.0 [facility] Comment on above: Performed By: #### C BC ####[facility] Egnoetjcod32[address] [place] [phone]. Chrissy Frazier CULTURE URINEon 01-04-2023 CULTURE URINE Culture Observations: NO GROWTH. Normal [facility] Comment on above: Performed By: #### U RCX ####[facility] Lflidasdcy[address] [place] [address]Dr. Chrissy Frazier DRUG SCREEN RAPID (URINE)on 01-04-2023 AMP Negative Normal NEGATIVE [facility] Comment on above: Performed By: #### D REYES, UAMIC ####[facility] Edkfsktytg4364 [place] [address]Dr. Chrissy Frazier BAR Negative Normal NEGATIVE [facility] Comment on above: Performed By: #### D REYES, UAMIC ####[facility] Twxnicyhge44[address] [place] [address]Dr. Chrissy Frazier BUP Negative Normal NEGATIVE [facility] Comment on above: Performed By: #### D CHAYAD, UAMIC ####[facility] Oaldqancdo35[address] [place] [address]Dr. Chrissy Frazier BZO Positive Abnormal NEGATIVE [facility] Comment on above: Performed By: #### D REYES, UAMIC ####[facility] Bpkzapnaxm44[address] [place] [address]Dr. Chrissy Frazier LAUREN Negative Normal NEGATIVE [facility] Comment on above: Performed By: #### D REYES, UAMIC ####[facility] Izofyaetdw5953 [place] [address]Dr. Chrissy Frazier CUT-OFFS SEE BELOW Normal [facility] Comment on above: Result Comment: AMP (Amphetamine): 500ng/mL, BAR (Barbituates): 200 ng/mL, BZO (Benzodiazepines): 150 ng/mL, BUP (Buprenorphine): 10 ng/mL, LAUREN (Cocaine): 150 ng/mL, mAMP (Methamphetamine): 500 ng/mL, MTD (Methadone): 200 ng/mL, OPI (Opiates): 100 ng/mL, OXY (Oxycodone): 100 ng/mL, PCP (Phencyclidine): 25 ng/mL, PPX (Propoxyphene): 300 ng/mL, THC (Cannabinoids): 50 ng/mL, TCA (Trycyclic Antidepressants): 300 ng/mL Performed By: #### Amelie CHAMBERS, UAMIC ####[facility] Elnfmsbzbg13[address] [place], [place] [address]Dr. [facility] DRUG CUT HEADER DRUG CLASS TEST SYSTEM CUT-OFF CONCENTRATIONS ARE FOLLOWS: Normal [facility] Comment on above: Performed By: #### Amelie CHAMBERS UAMIC ####[facility] Ndjqjcyjcv[address] [place], [place] [address]Dr. Chrissy [facility] mAMP Negative Normal NEGATIVE [facility] Comment on above: Performed By: #### Amelie CHAMBERS UAMIC ####[facility] Grasolonfq[address] [place], [place] [address]Dr. [facility] MTD Negative Normal NEGATIVE [facility] Comment on above: Performed By: #### Amelie CHAMBERS, UAMIC ####[facility] Dhzyiivled[address] [place], [place] [address]Dr. [facility] OPI Negative Normal NEGATIVE [facility] Comment on above: Performed By: #### Amelie CHAMBERS, UAMIC ####[facility] Imypcwuchj[address] [place], [place] [address]Dr. [facility] OXY Negative Normal NEGATIVE [facility] Comment on above: Performed By: #### Amelie CHAMBERS, UAMIC ####[facility] Ozzghhrxdb337[address] [place], [place] [address]Dr. [facility] PCP Negative Normal NEGATIVE [facility] Comment on above: Performed By: #### Amelie CHAMBERS, UAMIC ####[facility] Bjsagnyshe[address] [place], [place] [address]Dr. [facility] PPX Negative Normal NEGATIVE [facility] Comment on above: Performed By: #### D REYES UAMIC ####[facility] Oiuaulcnko1737 [place] [address]Dr. Chrissy Frazier TCA Positive Abnormal NEGATIVE [facility] Comment on above: Performed By: #### D REYES UAMIC ####[facility] Vycijphwbs0907 [place] [address]Dr. Chrissy Frazier THC Positive Abnormal NEGATIVE [facility] Comment on above: Performed By: #### D REYES UAMIC ####[facility] Xsxnvbpauj0375 [place] [address]Dr. Chrissy Frazier LIPASEon 01-04-2023 Lipase [Catalytic activity/Vol] 57.0 U/L Critically low 73.0-393.0 [facility] Comment on above: Performed By: #### L IPA ####[facility] Kvtjxmqxmn[address] [place], [place] [address]Dr. Chrissy Frazier PROF 14(COMP METB)on 023 Albumin [Mass/Vol] 3.6 g/dL Normal 3.4-5.0 [facility] Comment on above: Performed By: #### C MP ####[facility] Wnvndrstzn[address] [place], [place] [address]Dr. Chrissy Frazier Albumin/Globulin [Mass ratio] 1.0 {ratio} Normal [facility] Comment on above: Performed By: #### C MP ####[facility] Nrubuqcfpa98[address] [place], [place] [address]Dr. Chrissy Frazier ALP [Catalytic activity/Vol] 67 U/L Normal 46-116 [facility] Comment on above: Performed By: #### C MP ####[facility] Mlalrkuiqy2137[address] [place], [place] [address]Dr. Chrissy Frazier ALT [Catalytic activity/Vol] 26 U/L Normal 16-63 [facility] Comment on above: Performed By: #### C MP ####[facility] Wbbtdsmaap9880 [place] [address]Dr. Chrissy Frazier Anion gap [Moles/Vol] 16.3 mmol/L Normal [facility] Comment on above: Performed By: #### C MP ####[facility] Zoffzvrbai33[address] [place] [phone]. Chrissy Frazier AST [Catalytic activity/Vol] 17 U/L Normal 15-37 [facility] Comment on above: Performed By: #### C MP ####[facility] Aaxmppmiez2945 [place] [phone]. Chrissy Frazier Bilirubin [Mass/Vol] 0.4 mg/dL Normal 0.2-1.0 [facility] Comment on above: Performed By: #### C MP ####[facility] Iuaksigcbi0436[address] [place], [place] [address]Dr. Chrissy Frazier Calcium [Mass/Vol] 8.7 mg/dL Normal 8.5-10.1 [facility] Comment on above: Performed By: #### C MP ####[facility] Wenspsaiku[address] [place], [place] [address]Dr. Chrissy Frazier Chloride [Moles/Vol] 106 mmol/L Normal 98-107 [facility] Comment on above: Performed By: #### C MP ####[facility] Xzghtniond[address]04[address] [place], [place] [address]Dr. Chrissy Frazier CO2 [Moles/Vol] 22.6 mmol/L Normal 21.0-32.0 [facility] Comment on above: Performed By: #### C MP ####[facility] Iwgcimiphh[address]016[address] [place], [place] [address]Dr. Chrissy Frazier Creatinine [Mass/Vol] 0.99 mg/dL Normal 0.70-1.30 [facility] Comment on above: Performed By: #### C MP ####[facility] Mmnaefeorf1372 [place] [phone]. Chrissy Frazier EGFR-AF SURINAMESE >60 Normal >=60 [facility] Comment on above: Performed By: #### C MP ####[facility] Ijcojfeeaz6537 [place] [address]Dr. Chrissy Frazier EGFR-NON AF SURINAMESE >60 Normal >=60 [facility] Comment on above: Performed By: #### C MP ####[facility] Mjspqphzwz4871 [place] [address]Dr. Chrissy Frazier Globulin (S) [Mass/Vol] 3.6 g/dL Normal [facility] Comment on above: Performed By: #### C MP ####[facility] Yhinqnrslj2278 [place] [address]Dr. Chrissy Frazier Glucose [Mass/Vol] 138 mg/dL Critically high 74-106 [facility] Comment on above: Performed By: #### C MP ####[facility] Bwfnllnukx9433 [place] [address]Dr. Chrissy Frazier Potassium [Moles/Vol] 3.9 mmol/L Normal 3.5-5.1 [facility] Comment on above: Performed By: #### C MP ####[facility] Zdxyyitljh[address] [place], [place] [address]Dr. Chrissy Frazier Protein [Mass/Vol] 7.2 g/dL Normal 6.4-8.2 [facility] Comment on above: Performed By: #### C MP ####[facility] Nqxlujxyfm9[address] [place], [place] [address]Dr. Chrissy Frazier Sodium [Moles/Vol] 141 mmol/L Normal 136-145 [facility] Comment on above: Performed By: #### C MP ####[facility] Kyupbjdkuo5[address] [place], [place] [address]Dr. Chrissy Frazier Urea nitrogen [Mass/Vol] 10.0 mg/dL Normal 7.0-18.0 [facility] Comment on above: Performed By: #### C MP ####[facility] Pojiddnplf[address] [place], [place] [address]Dr. Chrissy Frazier Urea nitrogen/Creatinine [Mass ratio] 10.1 mg/mg Normal [facility] Comment on above: Performed By: #### C MP ####[facility] Unrkyistvv10[address] [place], [place] [address]Dr. Chrissy Frazier UA RANDOM W/MICROSCOPICon BACTERIA TRACE Abnormal NONE SEEN [facility] Comment on above: Performed By: #### D REYES, UAMIC ####[facility] Incwdfwzyr5344 [place] [address]Dr. Chrissy Frazier Bilirubin Ql (U) Negative Normal NEGATIVE [facility] Comment on above: Performed By: #### Amelie CHAMBERS, UAMIC ####[facility] Ebscryzqgt59[address] [place], [place] [address]Dr. Chrissy Frazier CAST NONE SEEN Normal NONE SEEN [facility] Comment on above: Performed By: #### Amelie CHAMBESR, UAMIC ####[facility] Konzzakqag37[address] [place], [place] [address]Dr. Chrissy Frazier Clarity (U) CLEAR Normal CLEAR [facility] Comment on above: Performed By: #### Amelie CHAMBERS, UAMIC ####[facility] Ovbdfauofv450[address] [place], [place] [address]Dr. Chrissy Frazier Color (U) YELLOW Normal YELLOW [facility] Comment on above: Performed By: #### Amelie CHAMBERS, UAMIC ####[facility] Xxruzzsccw72[address] [place], [place] [address]Dr. Chrissy Frazier Crystals LM Nom (Urine sed) NONE SEEN Normal NONE SEEN [facility] Comment on above: Performed By: #### Amelie CHAMBERS, UAMIC ####[facility] Tlegcvyocu[address] [place], [place] [address]Dr. Chrissy Frazier Epithelial cells LM Ql (Urine sed) NONE SEEN Normal NONE SEEN /RARE [facility] Comment on above: Performed By: #### Amelie CHAMBERS, UAMIC ####[facility] Uynpcunkna[address] [place], [place] [address]Dr. Chrissy Frazier Glucose Ql (U) Negative Normal NEGATIVE [facility] Comment on above: Performed By: #### D REYES, UAMIC ####[facility] Harcvfosbc3968[address] [place], [place] [address]Dr. Chrissy Frazier Hemoglobin Ql (U) Negative Normal NEGATIVE [facility] Comment on above: Performed By: #### Amelie CHAMBERS, UAMIC ####[facility] Ixwmrngpvg1920[address] [place], [place] [address]Dr. Chrissy Frazier Ketones Ql (U) 15 mg/dl Abnormal NEGATIVE [facility] Comment on above: Performed By: #### Amelie CHAMBERS UAMIC ####[facility] Yvyadrinrs8[address] [place] [address]Dr. Chrissy Frazier LEUKOCYTES Negative Normal NEGATIVE [facility] Comment on above: Performed By: #### Amelie CHAMBERS UAMIC ####[facility] Lgfboxlxcy7039 [place] [address]Dr. Chrissy Frazier MUCOUS NONE SEEN Normal NONE SEEN [facility] Comment on above: Performed By: #### Amelie CHAMBERS UAMIC ####[facility] Priyilqgnu5717 [place] [address]Dr. Chrissy Frazier Nitrite Ql (U) Negative Normal NEGATIVE [facility] Comment on above: Performed By: #### Amelie CHAMBERS UAMIC ####[facility] Wuehnijbyz3566 [place] [address]Dr. Chrissy Frazier pH (U) 6.5 [pH] Normal 5-9 [facility] Comment on above: Performed By: #### Amelie CHAMBERS UAMIC ####[facility] Mptuuflosh[address] [place], [place] [address]Dr. Chrissy Frazier RBC NONE SEEN Abnormal 0-2 [facility] Comment on above: Performed By: #### Amelie CHAMBERS UAMIC ####[facility] Dwnqaoirnw[address] [place], [place] [address]Dr. Chrissy Frazier SPEC GRAVITY 1.020 Normal 1.005-<=1.025 The [facility] Comment on above: Performed By: #### Amelie CHAMBERS UAMIC ####[facility] Pnmwsctrgi[address] [place], [place] [address]Dr. Chrissy Frazier UA PROTEIN Negative Normal NEGATIVE/ TRACE [facility] Comment on above: Performed By: #### Amelie CHAMBERS UAMIC ####[facility] Clwlfquycu[address] [place], [place] [address]Dr. Chrissy Frazier Urobilinogen Qn (U) 0.2 {Estrellita'U}/dL Normal 0.2 - 1. 0 [facility] Comment on above: Performed By: #### Amelie CHAMBERS UAMIC ####[facility] Udwssgrapd8434 [place] [id number]. Chrissy Frazier WBC NONE SEEN Normal NONE SEEN [facility] Comment on above: Performed By: #### D REYES UAMIC ####[facility] Qogdzougwv5894 [place] [id number]. Chrissy Frazier AMMONIAon 01-03-2023 Ammonia (P) [Moles/Vol] 17 umol/L Normal 11-32 [facility] Comment on above: Performed By: #### A MM ####[facility] Vpzmtxsrpg7230 [place] [address]Dr. Chrissy Frazier AMYLASEon 01-03-2023 Amylase [Catalytic activity/Vol] 38 U/L Normal 25-115 [facility] Comment on above: Performed By: #### L IPA, TERRENCE, CMP, MG ####[facility] Konynsfxel7[address] [place] [address]Dr. Chrissy Frazier CBC AUTO DIFFon 01-03-2023 BASO # 0.1 103/ul Normal 0.0-0.1 [facility] Comment on above: Performed By: #### C BC ####[facility] Dmnrjkfunp0810 [place] [address]Dr. Chrissy Frazier Basophils/100 WBC (Bld) 0.4 % Normal 0.2-2.0 [facility] Comment on above: Performed By: #### C BC ####[facility] Jftifhlpli6814 [place] [address]Dr. Chrissy Frazier EO # 0.1 103/ul Normal 0.0-0.7 [facility] Comment on above: Performed By: #### C BC ####[facility] Hegzqosquv3764 [place] [address]Dr. Chrissy Frazier Eosinophils/100 WBC (Bld) 0.3 % Critically low 0.9-7.0 [facility] Comment on above: Performed By: #### C BC ####[facility] Ovlyyyfwys9170 [place] [address]Dr. Chrissy Frazier Erythrocyte distribution width (RBC) [Ratio] 13.7 % Normal 11.0-15.0 [facility] Comment on above: Performed By: #### C BC ####[facility] Godelrrsde9[address] [place] [address]Dr. Tishrowan Freddie Hematocrit (Bld) [Volume fraction] 46.1 % Normal 42.0-54.0 [facility] Comment on above: Performed By: #### C BC ####[facility] Rvivjngiuw0952 [place] [address]Dr. Chrissy Frazier Hemoglobin (Bld) [Mass/Vol] 15.4 g/dL Normal 14.0-18.0 [facility] Comment on above: Performed By: #### C BC ####[facility] Fwlqqlgmyy84[address] [place], [place] [address]Dr. Chrissy Frazier IG # 0.11 10e3/ul Critically high 0.00-0.03 [facility] Comment on above: Performed By: #### C BC ####[facility] Vsbbhfhnao45[address] [place], [place] [address]Dr. Chrissy Frazier IG % 0.6 % Critically high 0.0-0.5 [facility] Comment on above: Performed By: #### C BC ####[facility] Imaiexaekx70[address] [place], [place] [address]Dr. Chrissy Frazier LYMPH # 2.5 103/ul Normal 1.2-3.8 [facility] Comment on above: Performed By: #### C BC ####[facility] Bacoikhpwa19[address] [place], [place] [address]DrNancy Frazier Lymphocytes/100 WBC (Bld) 13.9 % Critically low 20.5-60.0 [facility] Comment on above: Performed By: #### C BC ####[facility] Mwldqtawyu[address] [place], [place] [address]DrNancy Frazier MANUAL DIFF REQ NO Normal [facility] Comment on above: Performed By: #### C BC ####[facility] Rmmujnuied7336 [place] [address]Dr. Chrissy Frazier MCH (RBC) [Entitic mass] 28.6 pg Normal 25.9-34.0 [facility] Comment on above: Performed By: #### C BC ####[facility] Rqpxhmdegi9228 [place] [address]Dr. Chrissy Frazier MCHC (RBC) [Mass/Vol] 33.4 g/dL Normal 29.9-35.2 [facility] Comment on above: Performed By: #### C BC ####[facility] Ewfgskprab3868 [place] [address]Dr. Chrissy Frazier MCV (RBC) [Entitic vol] 85.7 fL Normal 80.0-94.0 [facility] Comment on above: Performed By: #### C BC ####[facility] Beckorzqff[address] [place], [place] [address]DrNancy Frazier MONO # 0.7 103/ul Normal 0.3-0.8 [facility] Comment on above: Performed By: #### C BC ####[facility] Jinamjshyp[address]190[address] [place], [place] [address]Dr. Chrissy Frazier Monocytes/100 WBC (Bld) 4.0 % Normal 1.7-12.0 [facility] Comment on above: Performed By: #### C BC ####[facility] Woekwhgbce2240[address] [place], [place] [address]DrNancy Frazier NEUT # 14.3 103/ul Critically high 1.4-6.5 [facility] Comment on above: Performed By: #### C BC ####[facility] Cwqtwkufha6[address] [place], [place] [address]Dr. Chrissy Frazier Neutrophils/100 WBC (Bld) 80.8 % Critically high 43.0-75.0 [facility] Comment on above: Performed By: #### C BC ####[facility] Nxonxdngvb467[address] [place], [place] [address]DrNancy Frazier Platelet mean volume (Bld) [Entitic vol] 10.4 fL Normal 9.5-13.5 [facility] Comment on above: Performed By: #### C BC ####[facility] Gkmmhdmqrt50[address] [place], [place] [address]Dr. Chrissy Frazier PLT 437 103/ul Normal 150-450 [facility] Comment on above: Performed By: #### C BC ####[facility] Ccordqwmqg3322 [place] [address]Dr. Chrissy Frazier RBC 5.38 106/ul Normal 4.70-6.10 [facility] Comment on above: Performed By: #### C BC ####[facility] Qotzmswidq5708 [place] [address]Dr. Chrissy Frazier WBC 17.7 103/ul Critically high 4.0-11.0 [facility] Comment on above: Performed By: #### C BC ####[facility] Knrcaesthi1035 [place] [address]Dr. Chrissy Frazier CULTURE BLOODon 01-03-2023 Microscopic examination of blood, culture Culture Observations: NO GROWTH AT 5 DAYS. Normal [facility] Comment on above: Performed By: #### B LDCX1 ####[facility] Gijaouudah[address] [place], [place] [address]Dr. Chrissy Frazier Performed By: #### B LDCX2 ####[facility] Wfcqeneuil0817 [place] [address]Dr. Chrissy Frazier ECHOCARDIO M/2D COMPLETEon 0 01-03-2023 ECHOCARDIO M/2D COMPLETE Normal [facility] LACTATE/LACTIC ACIDon 2022 Lactate [Moles/Vol] 2.7 mmol/L Critically high 0.4-1.9 [facility] Comment on above: Performed By: #### L ACT ####[facility] Bmrbblwvlr0947 [place] [address]Dr. Chrissy Frazier Lactate [Moles/Vol] 6.3 mmol/L Critically high 0.4-1.9 [facility] Comment on above: Performed By: #### L ACT ####[facility] Allxoxalbj6711 [place] [address]Dr. Chrissy Frazier LIPASEon 01-03-2023 Lipase [Catalytic activity/Vol] 74.0 U/L Normal 73.0-393.0 [facility] Comment on above: Performed By: #### L IPA, TERRENCE, CMP, MG ####[facility] Rarnitbstn7[address] [place] [address]Dr. Chrissy Frazier MAGNESIUMon 01-03-2023 Magnesium [Mass/Vol] 1.6 mg/dL Critically low 1.8-2.4 [facility] Comment on above: Performed By: #### L IPA, TERRENCE, CMP, MG ####[facility] Vyjtmctnhr3616 [place] [address]Dr. Chrissy Frazier PROF 14(COMP METB)on 023 Albumin [Mass/Vol] 4.3 g/dL Normal 3.4-5.0 [facility] Comment on above: Performed By: #### L IPA, TERRENCE, CMP, MG ####[facility] Ocoykbqmuw5118 [place] [address]Dr. Chrissy Frazier Albumin/Globulin [Mass ratio] 1.1 {ratio} Normal [facility] Comment on above: Performed By: #### L IPA, TERRENCE, CMP, MG ####[facility] Pxydbfiang5475 [place] [address]Dr. Chrissy Frazier ALP [Catalytic activity/Vol] 87 U/L Normal 46-116 [facility] Comment on above: Performed By: #### L IPA, TERRENCE, CMP, MG ####[facility] Umqjbiedaw6[address] [place] [address]Dr. Chrissy Frazier ALT [Catalytic activity/Vol] 32 U/L Normal 16-63 [facility] Comment on above: Performed By: #### L IPA, TERRENCE, CMP, MG ####[facility] Lwgvvucinb22[address] [place] [address]Dr. Chrissy Frazier Anion gap [Moles/Vol] 24.0 mmol/L Normal [facility] Comment on above: Performed By: #### L IPA, TERRENCE, CMP, MG ####[facility] Haihbdvwll15[address] [place] [address]Dr. Chrissy Frazier AST [Catalytic activity/Vol] 22 U/L Normal 15-37 [facility] Comment on above: Performed By: #### L IPA, TERRENCE, CMP, MG ####[facility] Wfpuybkaos7[address] [place] [address]Dr. Chrissy Frazier Bilirubin [Mass/Vol] 0.6 mg/dL Normal 0.2-1.0 [facility] Comment on above: Performed By: #### L IPA, TERRENCE, CMP, MG ####[facility] Yohbnefyij29[address] [place] [address]Dr. Chrissy Frazier Calcium [Mass/Vol] 9.6 mg/dL Normal 8.5-10.1 [facility] [place] [facility] Comment on above: Performed By: #### L IPA, TERRENCE, CMP, MG ####[facility] Vhugupdhal38[address] [place] [address]Dr. Chrissy Frazier Chloride [Moles/Vol] 103 mmol/L Normal 98-107 [facility] Comment on above: Performed By: #### L IPA, TERRENCE, CMP, MG ####[facility] [address]pdmrkwyom[address] [place], [place] [address]Dr. Chrissy Frazier CO2 [Moles/Vol] 16.7 mmol/L Critically low 21.0-32.0 [facility] Comment on above: Performed By: #### L IPA, TERRENCE, CMP, MG ####[facility] Fjmpwb[address] [place], [place] [address]Dr. Chrissy Frazier Creatinine [Mass/Vol] 1.42 mg/dL Critically high 0.70-1.30 [facility] Comment on above: Performed By: #### L IPA, TERRENCE, CMP, MG ####[facility] Vsombyzwig35[address] [place] [address]Dr. Chrissy Frazier EGFR-AF SURINAMESE >60 Normal >=60 [facility] Comment on above: Performed By: #### L IPA, TERRENCE, CMP, MG ####[facility] Vwrahpszdw[address] [place], [place] [address]Dr. Chrissy Frazier EGFR-NON AF SURINAMESE 58 mL/min/1.73m2 Critically low >=60 [facility] Comment on above: Performed By: #### L IPA, TERRENCE, CMP, MG ####[facility] Ilbmmdiyis6974 [place] [address]Dr. Chrissy Frazier Globulin (S) [Mass/Vol] 4.0 g/dL Normal [facility] Comment on above: Performed By: #### L IPA, TERRENCE, CMP, MG ####[facility] Ynxufgzgir6464 [place] [address]Dr. Chrissy Frazier Glucose [Mass/Vol] 149 mg/dL Critically high 74-106 [facility] Comment on above: Performed By: #### L IPA, TERRENCE, CMP, MG ####[facility] Rzlugixzyf4915 [place] [address]Dr. Chrissy Frazier Potassium [Moles/Vol] 3.7 mmol/L Normal 3.5-5.1 [facility] Comment on above: Performed By: #### L IPA, TERRENCE, CMP, MG ####[facility] Jrhsveddbm2518 [place] [address]Dr. Chrissy Frazier Protein [Mass/Vol] 8.3 g/dL Critically high 6.4-8.2 [facility] Comment on above: Performed By: #### L IPA, TERRENCE, CMP, MG ####[facility] Nkzdlefmrg3870 [place] [address]Dr. Chrissy Frazier Sodium [Moles/Vol] 140 mmol/L Normal 136-145 [facility] [place] [facility] Comment on above: Performed By: #### L IPA, TERRENCE, CMP, MG ####[facility] Kxzctmprje9318 [place] [address]Dr. Chrissy Frazier Urea nitrogen [Mass/Vol] 16.0 mg/dL Normal 7.0-18.0 [facility] Comment on above: Performed By: #### L IPA, TERRENCE, CMP, MG ####[facility] Vdawxculeg2220 [place] [address]Dr. Chrissy Frazier Urea nitrogen/Creatinine [Mass ratio] 11.3 mg/mg Normal [facility] Comment on above: Performed By: #### L IPA, TERRENCE, CMP, MG ####[facility] Nqfsuufsmb8547 [place] [address]Dr. Chrissy Frazier SED RATE [facility] 2022 SED RATE 37 mm/hr Critically high <=15 [facility] Comment on above: Performed By: #### S EDR ####[facility] Wnpckwlymn[address] [place], [place] [address]Xl. Chrissy Frazier XR ABD FLAT UP_PA Enoch 01-03 XR ABD FLAT UP_PA CH Normal [facility] CT HEART CORONARY ANGIOGRAMo n 12-13-2022 CT [...] CT examination Electronically signed: Maikel Chappell. Normal [facility] Office Visiton 11-24-2022 Follow-up visit [id number] Paulina Montero 1990 M Date Provider Department Center 11/24/2022 3848-RAQUEL BANKS MANE [facility] Family History Problem Relation Age of Onset Coronary artery disease Father Heart attack Father 54 Family Status - Relation Status Age at Father Level of Service:08944 [place] OFFICE/OUTPATIENT NEW MODERATE MDM 45-59 MINUTES Reason for Visit and Comments: abnormal stress test [Other] Normal [facility] CARDIAC STRESS TESTon 2021 CARDIAC STRESS TEST Normal [facility] AMYLASEon 10-24-2022 Amylase [Catalytic activity/Vol] 26 U/L Normal 25-115 [facility] Comment on above: Performed By: #### C MP, LIPA, TERRENCE ####[facility] Ulbkhligko8[address] [place], [place] [address]ZtNancy Chrissy Frazier CBC AUTO DIFFon 10-24-2022 BASO # 0.0 103/ul Normal 0.0-0.1 [facility] Comment on above: Performed By: #### C BC ####[facility] Vrjitszvsw5065 [place] [id number]. Chrissy Frazier Basophils/100 WBC (Bld) 0.2 % Normal 0.2-2.0 [facility] Comment on above: Performed By: #### C BC ####[facility] Htptkwvxar8646 [place] [id number]. Chrissy Frazier EO # 0.1 103/ul Normal 0.0-0.7 [facility] Comment on above: Performed By: #### C BC ####[facility] Tqarldwcwq[address] [place], [place] [address]Dr. Chrissy Frazier Eosinophils/100 WBC (Bld) 0.4 % Critically low 0.9-7.0 [facility] Comment on above: Performed By: #### C BC ####[facility] Hrmvhdhnva[address] [place], [place] [address]Dr. Chrissy Frazier Erythrocyte distribution width (RBC) [Ratio] 14.6 % Normal 11.0-15.0 [facility] Comment on above: Performed By: #### C BC ####[facility] Nuwjzouhsn3195 [place] [address]Dr. Chrsisy Frazier Hematocrit (Bld) [Volume fraction] 39.4 % Critically low 42.0-54.0 [facility] Comment on above: Performed By: #### C BC ####[facility] Pfumkmrfvw4804 [place] [id number]. Chrissy Frazier Hemoglobin (Bld) [Mass/Vol] 13.2 g/dL Critically low 14.0-18.0 [facility] Comment on above: Performed By: #### C BC ####[facility] Ksqctmkzbp1118 [place] [address]Dr. Chrissy Frazier IG # 0.07 10e3/ul Critically high 0.00-0.03 [facility] Comment on above: Performed By: #### C BC ####[facility] Zwaulwlxgr[address] [place], [place] [address]Dr. Chrissy Frazier IG % 0.5 % Normal 0.0-0.5 [facility] Comment on above: Performed By: #### C BC ####[facility] Rkazvlsxfw4459 [place] [id number]. Chrissy Frazier LYMPH # 3.7 103/ul Normal 1.2-3.8 [facility] Comment on above: Performed By: #### C BC ####[facility] Thtslmyalh8735 [place], [place] [address]Sf. Chrissy Freddie Lymphocytes/100 WBC (Bld) 27.0 % Normal 20.5-60.0 [facility] Comment on above: Performed By: #### C BC ####[facility] Hkvsvsgpzs0261 [place] [id number]. Tishrowan Frazier MANUAL DIFF REQ NO Normal [facility] Comment on above: Performed By: #### C BC ####[facility] Fftftkvpdc2363 [place] [phone]. Chrissy Freddie MCH (RBC) [Entitic mass] 27.8 pg Normal 25.9-34.0 [facility] Comment on above: Performed By: #### C BC ####[facility] Bqzhtfpzca0051 [place] [id number]. Chrissy Frazier MCHC (RBC) [Mass/Vol] 33.5 g/dL Normal 29.9-35.2 [facility] Comment on above: Performed By: #### C BC ####[facility] Gservzvdmy9236 [place] [id number]. Chrissy Frazier MCV (RBC) [Entitic vol] 82.9 fL Normal 80.0-94.0 [facility] Comment on above: Performed By: #### C BC ####[facility] Cixvvikzqm0296 [place] [phone]. Chrissy Freddie MONO # 1.2 103/ul Critically high 0.3-0.8 [facility] Comment on above: Performed By: #### C BC ####[facility] Zgpneqyujk6067 [place] [phone]. Tishrowan Frazier Monocytes/100 WBC (Bld) 8.4 % Normal 1.7-12.0 [facility] Comment on above: Performed By: #### C BC ####[facility] Vdzctzlvhb4347 [place] [phone]. Chrissy Frazier NEUT # 8.8 103/ul Critically high 1.4-6.5 [facility] Comment on above: Performed By: #### C BC ####[facility] Gtkawpavwv5834 [place] [phone]. Chrissy Frazier Neutrophils/100 WBC (Bld) 63.5 % Normal 43.0-75.0 [facility] Comment on above: Performed By: #### C BC ####[facility] Dzkakiuefy0141 [place] [phone]. Tishrowan Frazier Platelet mean volume (Bld) [Entitic vol] 10.7 fL Normal 9.5-13.5 [facility] Comment on above: Performed By: #### C BC ####[facility] Syirojbsid0215 [place] [phone]. Chrissy Frazier PLT 291 103/ul Normal 150-450 [facility] Comment on above: Performed By: #### C BC ####[facility] Xpppihxbbz[address] [place], [place] [address]Dr. Chrissy Frazier RBC 4.75 106/ul Normal 4.70-6.10 [facility] Comment on above: Performed By: #### C BC ####[facility] Jwuxcujtuq9652 [place] [phone]. Chrissy Frazier WBC 13.8 103/ul Critically high 4.0-11.0 [facility] Comment on above: Performed By: #### C BC ####[facility] Snelwqshgw[address] [place], [place] [address]Dr. Chrissy Frazier LIPASEon 10-24-2022 Lipase [Catalytic activity/Vol] 44.0 U/L Critically low 73.0-393.0 [facility] Comment on above: Performed By: #### C MP, LIPA, TERRENCE ####[facility] Rrufcrkwrn0717 [place] [address]Dr. Chrissy Frazier PROF 14(COMP METB)on 022 Albumin [Mass/Vol] 3.4 g/dL Normal 3.4-5.0 [facility] [place] [facility] Comment on above: Performed By: #### C OSWALD ADAIR, TERRENCE ####[facility] Ayjflksbpc8422 [place] [address]Dr. Chrissy Frazier Albumin/Globulin [Mass ratio] 0.9 {ratio} Normal [facility] Comment on above: Performed By: #### C TESSA ADAIRA, TERRENCE ####[facility] Mxankylayv6[address] [place], [place] [address]Dr. Tishrowan Frazier ALP [Catalytic activity/Vol] 67 U/L Normal 46-116 [facility] Comment on above: Performed By: #### C OSWALD ADAIR, TERRENCE ####[facility] Shjtnwokhw[address] [place], [place] [address]Dr. Chrissy Frazier ALT [Catalytic activity/Vol] 25 U/L Normal 16-63 [facility] Comment on above: Performed By: #### C OSWALD ADAIR, TERRENCE ####[facility] Oqqdkyudxn11[address] [place], [place] [address]Dr. Chrissy Frazier Anion gap [Moles/Vol] 14.5 mmol/L Normal [facility] Comment on above: Performed By: #### C OSWALD ADAIR, TERRENCE ####[facility] Ngtvgjdjna69[address] [place], [place] [address]Dr. Chrissy Frazier AST [Catalytic activity/Vol] 17 U/L Normal 15-37 [facility] Comment on above: Performed By: #### C OSWALD ADAIR, TERRENCE ####[facility] Rpprhbqqzv94[address] [place], [place] [address]Dr. Chrissy Frazier Bilirubin [Mass/Vol] 0.5 mg/dL Normal 0.2-1.0 [facility] Comment on above: Performed By: #### C OSWALD ADAIR, TERRENCE ####[facility] Eqaasxhuko45[address] [place], [place] [address]Dr. Chrissy Frazier Calcium [Mass/Vol] 8.6 mg/dL Normal 8.5-10.1 [facility] Comment on above: Performed By: #### C TESSA ADAIRA, TERRENCE ####[facility] Xkqpyyltwy6288 [place] [address]Dr. Chrissy Frazier Chloride [Moles/Vol] 106 mmol/L Normal 98-107 [facility] Comment on above: Performed By: #### C OSWALD ADAIR, TERRENCE ####[facility] Xpyzbicxvj7805 [place] [address]Dr. Chrissy Frazier CO2 [Moles/Vol] 22.8 mmol/L Normal 21.0-32.0 [facility] Comment on above: Performed By: #### C OSWALD ADAIR, TERRENCE ####[facility] Pzdvyftimk5501 [place] [address]Dr. Chrissy Frazier Creatinine [Mass/Vol] 0.98 mg/dL Normal 0.70-1.30 [facility] Comment on above: Performed By: #### C OSWALD ADAIR, TERRENCE ####[facility] Dsspnqxxca[address] [place], [place] [address]Dr. Chrissy Frazier EGFR-AF SURINAMESE >60 Normal >=60 [facility] Comment on above: Performed By: #### C OSWALD ADAIR, TERRENCE ####[facility] Myeglcnngp59[address] [place], [place] [address]Dr. Chrissy Frazier EGFR-NON AF SURINAMESE >60 Normal >=60 [facility] Comment on above: Performed By: #### C OSWALD ADAIR, TERRENCE ####[facility] Rklbfopwiq9531 [place] [address]Dr. Chrissy Frazier Globulin (S) [Mass/Vol] 3.7 g/dL Normal [facility] Comment on above: Performed By: #### C OSWALD ADAIR, TERRENCE ####[facility] Jimfyznrvv4963 [place] [address]Dr. Chrissy Frazier Glucose [Mass/Vol] 115 mg/dL Critically high 74-106 [facility] Comment on above: Performed By: #### C OSWALD ADAIR, TERRENCE ####[facility] Kbkwmpfbep[address] [place], [place] [address]Dr. Chrissy Frazier Potassium [Moles/Vol] 3.3 mmol/L Critically low 3.5-5.1 [facility] Comment on above: Performed By: #### C MP, LIPA, TERRENCE ####[facility] Hupnxwdpgm[address] [place], [place] [address]Dr. Chrissy Frazier Protein [Mass/Vol] 7.1 g/dL Normal 6.4-8.2 [facility] [place] [facility] Comment on above: Performed By: #### C MP, LIPA, TERRENCE ####[facility] Ochibxredg[address] [place], [place] [address]Dr. Chrisys Frazier Sodium [Moles/Vol] 140 mmol/L Normal 136-145 [facility] Comment on above: Performed By: #### C MP, LIPA, TERRENCE ####[facility] Wkzwklqsck0[address] [place], [place] [address]Dr. Chrissy Frazier Urea nitrogen [Mass/Vol] 10.0 mg/dL Normal 7.0-18.0 [facility] Comment on above: Performed By: #### C MP, LIPA, TERRENCE ####[facility] Zvhokhgwkr[address] [place], [place] [address]Dr. Chrissy Frazier Urea nitrogen/Creatinine [Mass ratio] 10.2 mg/mg Normal [facility] Comment on above: Performed By: #### C MP, LIPA, TERRENCE ####[facility] Iujflkynoy1864[address] [place], [place] [address]Dr. Chrissy Frazier AMYLASEon 10-23-2022 Amylase [Catalytic activity/Vol] 31 U/L Normal 25-115 [facility] Comment on above: Performed By: #### C MP, LIPA, TERRENCE ####[facility] Gsvcqkzmpw2[address] [place], [place] [address]Dr. Chrissy Frazier CBC AUTO DIFFon 10-23-2022 BASO # 0.1 103/ul Normal 0.0-0.1 [facility] Comment on above: Performed By: #### C BC ####[facility] Qsxxwdtvou60[address] [place], [place] [address]Dr. Chrissy Frazier Basophils/100 WBC (Bld) 0.3 % Normal 0.2-2.0 [facility] Comment on above: Performed By: #### C BC ####[facility] Nbqqxrvryb5106 [place] [address]Dr. Chrissy Frazier EO # 0.1 103/ul Normal 0.0-0.7 [facility] Comment on above: Performed By: #### C BC ####[facility] Szeynfnrzb0030 [place] [address]Dr. Chrissy Frazier Eosinophils/100 WBC (Bld) 0.3 % Critically low 0.9-7.0 [facility] Comment on above: Performed By: #### C BC ####[facility] Oopftbdata2[address] [place], [place] [address]Dr. Chrissy Frazier Erythrocyte distribution width (RBC) [Ratio] 14.5 % Normal 11.0-15.0 [facility] Comment on above: Performed By: #### C BC ####[facility] Qapitxxojy40[address] [place], [place] [address]Dr. Chrissy Frazier Hematocrit (Bld) [Volume fraction] 44.0 % Normal 42.0-54.0 [facility] Comment on above: Performed By: #### C BC ####[facility] Hypripnfgp[address] [place], [place] [address]Dr. Chrissy Frazier Hemoglobin (Bld) [Mass/Vol] 14.8 g/dL Normal 14.0-18.0 [facility] Comment on above: Performed By: #### C BC ####[facility] Twfuujesmn1288 [place] [address]Dr. Chrissy Frazier IG # 0.09 10e3/ul Critically high 0.00-0.03 [facility] Comment on above: Performed By: #### C BC ####[facility] Wgbfrobwcu1022 [place] [address]Dr. Chrissy Frazier IG % 0.5 % Normal 0.0-0.5 [facility] Comment on above: Performed By: #### C BC ####[facility] Mmyaekfroh[address] [place], [place] [address]Dr. Chrissy Frazier LYMPH # 3.6 103/ul Normal 1.2-3.8 [facility] Comment on above: Performed By: #### C BC ####[facility] Jzuwfopnad2639 [place] [id number]. Chrissy Freddie Lymphocytes/100 WBC (Bld) 19.4 % Critically low 20.5-60.0 [facility] Comment on above: Performed By: #### C BC ####[facility] Oemoxomukj9473 [place] [id number]. Tishrowan Frazier MANUAL DIFF REQ NO Normal [facility] Comment on above: Performed By: #### C BC ####[facility] Mrizljkgrr6042 [place] [id number]. Chrissy Freddie MCH (RBC) [Entitic mass] 28.1 pg Normal 25.9-34.0 [facility] Comment on above: Performed By: #### C BC ####[facility] Gvwxgqisza5100 [place] [id number]. Chrissy Freddie MCHC (RBC) [Mass/Vol] 33.6 g/dL Normal 29.9-35.2 [facility] Comment on above: Performed By: #### C BC ####[facility] Ewwoyhaqes4357 [place] [id number]. Chrissy Freddie MCV (RBC) [Entitic vol] 83.5 fL Normal 80.0-94.0 [facility] Comment on above: Performed By: #### C BC ####[facility] Jchkdzojbc6048 [place] [id number]. Chrissy Frazier MONO # 0.9 103/ul Critically high 0.3-0.8 [facility] Comment on above: Performed By: #### C BC ####[facility] Egmcnkhmyl7775 [place] [id number]. Tishrowan Frazier Monocytes/100 WBC (Bld) 4.9 % Normal 1.7-12.0 [facility] Comment on above: Performed By: #### C BC ####[facility] Gbvvpzcmzy5637 [place] [id number]. Chrissy Frazier NEUT # 13.9 103/ul Critically high 1.4-6.5 [facility] Comment on above: Performed By: #### C BC ####[facility] Mxeoqvpuqx6421 [place] [id number]. Chrissy Frazier Neutrophils/100 WBC (Bld) 74.6 % Normal 43.0-75.0 [facility] Comment on above: Performed By: #### C BC ####[facility] Mmprjdxzuz6492 [place] [id number]. Chrissy Frazier Platelet mean volume (Bld) [Entitic vol] 10.5 fL Normal 9.5-13.5 [facility] Comment on above: Performed By: #### C BC ####[facility] Qravtgnhpl7401 [place] [id number]. Chrissy Frazier PLT 402 103/ul Normal 150-450 [facility] Comment on above: Performed By: #### C BC ####[facility] Xfpcfmcegr4172 [place] [id number]. Chrissy Frazier RBC 5.27 106/ul Normal 4.70-6.10 [facility] Comment on above: Performed By: #### C BC ####[facility] Hxmxoqkolv7543 [place] [id number]. Chrissy Frazier WBC 18.6 103/ul Critically high 4.0-11.0 [facility] Comment on above: Performed By: #### C BC ####[facility] Ocekkoiwil2508 [place] [phone]. Chrissy Frazier CULTURE BLOODon 10-23-2022 Microscopic examination of blood, culture Culture Observations: NO GROWTH AT 5 DAYS. Normal [facility] Comment on above: Performed By: #### B LDCX2 ####[facility] Nvwnwqaeft2591 [place] [id number]. Chrissy Frazier Microscopic examination of blood, culture Culture Observations: NO GROWTH AT 5 DAYS. Normal [facility] Comment on above: Performed By: #### B LDCX1 ####[facility] Xfhqnnyjqe7918 [place] [id number]. Chrissy Frazier CULTURE URINEon 10-23-2022 CULTURE URINE Culture Observations: NO GROWTH. Normal [facility] Comment on above: Performed By: #### U RCX ####[facility] Qmuptoovmx0134 [place] [address]Dr. Chrissy Frazier Covid-19 PCR (CVDTB)on SARS-CoV-2 (COVID-19) RNA RHIANNON+probe Ql (Unsp spec) Not detected Normal NOT DETECTED [facility] Comment on above: Result Comment: When diagnostic [...] for this test is supported by the Garment Supervisor of Health and Human Service's declaration that [...] be used). Performed By: #### C VDTBH ####[facility] Rdapnjpwaj[address] [place], [place] [address]Dr. Chrissy Frazier INFLUENZA A AND B AGon 10-23 INFLUANEGH SEE BELOW Normal [facility] Comment on above: Result Comment: Nega tive for Flu A protein angiten. Infection due to Flu A cannot be ruled out. Flu A angiten in the sample may be below the detection limit of the test. Performed By: #### I NFLUAB ####[facility] Hbfonpgmix8[address] [place], [place] [address]Dr. Chrissy Frazier INFLUBNEGH SEE BELOW Normal [facility] Comment on above: Result Comment: Nega tive for Flu B protein antigen. Infection due to Flu B cannot be ruled out. Flu B antigen in the sample may be below the detection limit of the test. Performed By: #### I NFLUAB ####[facility] Ughvehbvrx7240[address] [place], [place] [address]Dr. Chrissy Frazier INFLUENZA A AG Negative Normal NEGATIVE SEE COMMENT [facility] Comment on above: Performed By: #### I NFLUAB ####[facility] Rtxkzrqkrf0836 [place] [address]Dr. Chrissy Frazier INFLUENZA B AG Negative Normal NEGATIVE SEE COMMENT [facility] Comment on above: Performed By: #### I NFLUAB ####[facility] Boefplonsx[address] [place], [place] [address]Dr. Chrissy Frazier INTERNAL CONTROLS Within Normal Limits Normal Wi thin Normal Limits [facility] Comment on above: Performed By: #### I NFLUAB ####[facility] Woiudrygei6[address] [place], [place] [address]Dr. Chrissy Frazier LACTATE/LACTIC ACIDon 2021 Lactate [Moles/Vol] 2.1 mmol/L Critically high 0.4-1.9 [facility] Comment on above: Performed By: #### L ACT ####[facility] Ssbsnyeadt6[address] [place], [place] [address]Dr. Chrissy Frazier Lactate [Moles/Vol] 6.9 mmol/L Critically high 0.4-1.9 [facility] Comment on above: Performed By: #### L ACT ####[facility] Sgxvgieasr[address] [place], [place] [address]Dr. Chrissy Freddie LIPASEon 10-23-2022 Lipase [Catalytic activity/Vol] 72.0 U/L Critically low 73.0-393.0 [facility] Comment on above: Performed By: #### C OSWALD ADAIR AMY ####[facility] Cseczwbyzn[address] [place], [place] [address]Dr. Chrissy Frazier PROF 14(COMP METB)on 022 Albumin [Mass/Vol] 3.9 g/dL Normal 3.4-5.0 [facility] Comment on above: Performed By: #### C OSWALD ADAIR AMY ####[facility] Vzaokgawju18[address] [place], [place] [address]Dr. Chrissy Freddie Albumin/Globulin [Mass ratio] 0.9 {ratio} Normal [facility] Comment on above: Performed By: #### C MP, LIPA, TERRENCE ####[facility] Nmiootozim3539 [place] [address]Dr. Chrissy Frazier ALP [Catalytic activity/Vol] 82 U/L Normal 46-116 [facility] Comment on above: Performed By: #### C MP, LIPA, TERRENCE ####[facility] Xkzfchuriz5016 [place] [address]Dr. Chrissy Frazier ALT [Catalytic activity/Vol] 25 U/L Normal 16-63 [facility] Comment on above: Performed By: #### C MP, LIPA, TERRENCE ####[facility] Dftaqwslko8[address] [place], [place] [address]Dr. Chrissy Frazier Anion gap [Moles/Vol] 18.1 mmol/L Normal [facility] Comment on above: Performed By: #### C MP, LIPA, TERRENCE ####[facility] Hyoopgxfqo[address] [place], [place] [address]Dr. Chrissy Frazier AST [Catalytic activity/Vol] 17 U/L Normal 15-37 [facility] Comment on above: Performed By: #### C MP, LIPA, TERRENCE ####[facility] Worjmczgwf7[address] [place], [place] [address]Dr. Chrissy Frazier Bilirubin [Mass/Vol] 0.5 mg/dL Normal 0.2-1.0 [facility] Comment on above: Performed By: #### C MP, LIPA, TERRENCE ####[facility] Dzlnwwlfoo[address] [place], [place] [address]Dr. Chrissy Frazier Calcium [Mass/Vol] 9.1 mg/dL Normal 8.5-10.1 [facility] [place] [facility] Comment on above: Performed By: #### C MP, LIPA, TERRENCE ####[facility] Dsoxekzhzc[address] [place], [place] [address]Dr. Chrissy Frazier Chloride [Moles/Vol] 101 mmol/L Normal 98-107 [facility] Comment on above: Performed By: #### C MP, LIPA, TERRENCE ####[facility] Yabbqvqklr[address] [place], [place] [address]Dr. Chrissy Frazier CO2 [Moles/Vol] 19.2 mmol/L Critically low 21.0-32.0 [facility] Comment on above: Performed By: #### C OSWALD ADAIR TERRENCE ####[facility] Fxigwbshhy8927 [place] [address]Dr. Chrissy Frazier Creatinine [Mass/Vol] 1.72 mg/dL Critically high 0.70-1.30 [facility] Comment on above: Performed By: #### C OSWALD ADAIR, TERRENCE ####[facility] Nlrgoppuis8808 [place] [address]Dr. Chrissy Frazier EGFR-AF SURINAMESE 56 mL/min/1.73m2 Critically low >=60 [facility] Comment on above: Performed By: #### C OSWALD ADAIR, TERRENCE ####[facility] Dnzrbavixs1489 [place] [address]Dr. Chrissy Frazier EGFR-NON AF SURINAMESE 46 mL/min/1.73m2 Critically low >=60 [facility] Comment on above: Performed By: #### C OSWALD ADAIR, TERRENCE ####[facility] Ozuhirbxtf[address] [place], [place] [address]Dr. Chrissy Frazier Globulin (S) [Mass/Vol] 4.2 g/dL Normal [facility] Comment on above: Performed By: #### C OSWALD ADAIR, TERRENCE ####[facility] Zkkslbxtmi39[address] [place] [address]Dr. Chrissy Frazier Glucose [Mass/Vol] 126 mg/dL Critically high 74-106 [facility] Comment on above: Performed By: #### C OSWALD ADAIR, TERRENCE ####[facility] Bsyuglieak[address] [place] [address]Dr. Chrissy Frazier Potassium [Moles/Vol] 3.3 mmol/L Critically low 3.5-5.1 [facility] Comment on above: Performed By: #### C TESSA ADAIRA, TERRENCE ####[facility] Hoeeckqmol[address] [place] [address]Dr. Chrissy Frazier Protein [Mass/Vol] 8.1 g/dL Normal 6.4-8.2 [facility] Comment on above: Performed By: #### C OSWALD ADAIR, TERRENCE ####[facility] Yiviwpvyza16[address] [place] [address]Dr. Chrissy Frazier Sodium [Moles/Vol] 135 mmol/L Critically low 136-145 [facility] Comment on above: Performed By: #### C TESSA ADAIRA, TERRENCE ####[facility] Oipgjffzdr5[address] [place] [address]Dr. Chrissy Frazier Urea nitrogen [Mass/Vol] 13.0 mg/dL Normal 7.0-18.0 [facility] Comment on above: Performed By: #### C OSWALD ADAIR, TERRENCE ####[facility] Dhhdvuslwa[address] [place], [place] [address]Dr. Chirssy Frazier Urea nitrogen/Creatinine [Mass ratio] 7.6 mg/mg Normal [facility] Comment on above: Performed By: #### C OSWALD ADAIR, TERRENCE ####[facility] Ueahvhewnq[address] [place], [place] [address]Dr. Chrissy Frazier UA RANDOM W/MICROSCOPICon BACTERIA NONE SEEN Normal NONE SEEN [facility] Comment on above: Performed By: #### U AMIC ####[facility] Xdcaiuxsna57[address] [place], [place] [address]Dr. Chrissy Frazier Bilirubin Ql (U) Negative Normal NEGATIVE The [facility] Comment on above: Performed By: #### U AMIC ####[facility] Xqpsrtpqts[address] [place], [place] [address]Dr. Chrissy Frazier CAST NONE SEEN Normal NONE SEEN [facility] Comment on above: Performed By: #### U AMIC ####[facility] Gdgtgqwqxy[address] [place], [place] [address]Dr. Chrissy Frazier Clarity (U) CLEAR Normal CLEAR [facility] Comment on above: Performed By: #### U AMIC ####[facility] Cxslhbftvn67[address] [place] [address]Dr. Chrissy Frazier Color (U) LT. YELLOW Normal YELLOW [facility] Comment on above: Performed By: #### U AMIC ####[facility] Jjijvfyifp34[address] [place] [address]Dr. Chrissy Frazier Crystals LM Nom (Urine sed) NONE SEEN Normal NONE SEEN [facility] Comment on above: Performed By: #### U AMIC ####[facility] Joevbwexqb344[address] [place], [place] [address]Dr. Chrissy Frazier Epithelial cells LM Ql (Urine sed) FEW Abnormal NONE SEEN /RARE [facility] Comment on above: Performed By: #### U AMIC ####[facility] Utrmpmmrie[address] [place], [place] [address]Dr. Chrissy Frazier Glucose Ql (U) Negative Normal NEGATIVE The [facility] Comment on above: Performed By: #### U AMIC ####[facility] Qitybodbho70[address] [place], [place] [address]Dr. Chrissy Frazier Hemoglobin Ql (U) Negative Normal NEGATIVE The [facility] Comment on above: Performed By: #### U AMIC ####[facility] Wmrjxqnpky15[address] [place], [place] [address]Dr. Chrissy Frazier Ketones Ql (U) 15 mg/dl Abnormal NEGATIVE The [facility] Comment on above: Performed By: #### U AMIC ####[facility] Kauywiakiw[address] [place], [place] [address]Dr. Chrissy Frazier LEUKOCYTES Negative Normal NEGATIVE [facility] Comment on above: Performed By: #### U AMIC ####[facility] Jbxbeiqokv04[address] [place], [place] [address]Dr. Chrissy Frazier MUCOUS NONE SEEN Normal NONE SEEN [facility] Comment on above: Performed By: #### U AMIC ####[facility] Fbuloxapyn[address] [place], [place] [address]Dr. Chrissy Frazier Nitrite Ql (U) Negative Normal NEGATIVE The [facility] Comment on above: Performed By: #### U AMIC ####[facility] Bzlkbbexie398[address] [place], [place] [address]Dr. Chrissy Frazier pH (U) 6.0 [pH] Normal 5-9 [facility] Comment on above: Performed By: #### U AMIC ####[facility] Ouhmwlzbwa[address] [place], [place] [address]Dr. Chrissy Frazier RBC 0-2 Normal 0-2 [facility] Comment on above: Performed By: #### U AMIC ####[facility] Tlpoknhbug[address] [place] [address]Dr. Chrissy Frazier SPEC GRAVITY 1.010 Normal 1.005-<=1.025 The [facility] Comment on above: Performed By: #### U AMIC ####[facility] Otqpakznuz4344 [place] [address]Dr. Chrissy Freddie UA PROTEIN Negative Normal NEGATIVE/ TRACE [facility] Comment on above: Performed By: #### U AMIC ####[facility] Dsvoiyhlsy0552 [place] [address]Dr. Chrissy Freddie Urobilinogen Qn (U) 0.2 {Estrellita'U}/dL Normal 0.2 - 1. 0 [facility] Comment on above: Performed By: #### U AMIC ####[facility] Eqrwbvjpdq5726[address] [place], [place] [address]Dr. Chrissy Freddie WBC NONE SEEN Normal NONE SEEN [facility] Comment on above: Performed By: #### U AMIC ####[facility] Ckkrjvocqu[address] [place], [place] [address]Dr. Chrissy Freddie AMYLASEon 10-22-2022 Amylase [Catalytic activity/Vol] 28 U/L Normal 25-115 [facility] Comment on above: Performed By: #### L IPA, CMP, TERRENCE ####[facility] Zkgcenkxxy7739[address] [place], [place] [address]Dr. Chrissy Freddie CBC AUTO DIFFon 10-22-2022 BASO # 0.0 103/ul Normal 0.0-0.1 [facility] Comment on above: Performed By: #### C BC ####[facility] Zdvzelivod5723[address] [place], [place] [address]Dr. Tishrowan Frazier Basophils/100 WBC (Bld) 0.2 % Normal 0.2-2.0 [facility] Comment on above: Performed By: #### C BC ####[facility] Rtbftnljak[address] [place], [place] [address]Dr. Chrissy Frazier EO # 0.0 103/ul Normal 0.0-0.7 [facility] Comment on above: Performed By: #### C BC ####[facility] Jmlgznxtgy8203 [place] [address]Dr. Chrissy Frazier Eosinophils/100 WBC (Bld) 0.1 % Critically low 0.9-7.0 [facility] Comment on above: Performed By: #### C BC ####[facility] Xyqfembfzn6318 [place] [address]Dr. Chrissy Frazier Erythrocyte distribution width (RBC) [Ratio] 14.4 % Normal 11.0-15.0 [facility] Comment on above: Performed By: #### C BC ####[facility] Yfvidtvpec96[address] [place], [place] [address]Dr. Chrissy Frazier Hematocrit (Bld) [Volume fraction] 45.2 % Normal 42.0-54.0 [facility] Comment on above: Performed By: #### C BC ####[facility] Zymheucgim[address] [place], [place] [address]Dr. Chrissy Frazier Hemoglobin (Bld) [Mass/Vol] 15.4 g/dL Normal 14.0-18.0 [facility] Comment on above: Performed By: #### C BC ####[facility] Qrzcebedju6314[address] [place], [place] [address]Dr. Chrissy Frazier IG # 0.07 10e3/ul Critically high 0.00-0.03 [facility] Comment on above: Performed By: #### C BC ####[facility] Udhhocdpiy7[address] [place] [address]Dr. Chrissy Frazier IG % 0.4 % Normal 0.0-0.5 [facility] Comment on above: Performed By: #### C BC ####[facility] Bwwzbsaeqt847[address] [place], [place] [address]Dr. Chrissy Frazier LYMPH # 2.0 103/ul Normal 1.2-3.8 [facility] Comment on above: Performed By: #### C BC ####[facility] Tktqazrmsc79[address] [place], [place] [address]Dr. Chrissy Frazier Lymphocytes/100 WBC (Bld) 12.2 % Critically low 20.5-60.0 [facility] Comment on above: Performed By: #### C BC ####[facility] Mpxtlmcogz1253 [place] [address]DrNancy Frazier MANUAL DIFF REQ NO Normal [facility] Comment on above: Performed By: #### C BC ####[facility] Znopmskbuz0364 [place] [address]Dr. Chrissy Frazier MCH (RBC) [Entitic mass] 28.3 pg Normal 25.9-34.0 [facility] Comment on above: Performed By: #### C BC ####[facility] Gzcndoofzp5[address] [place], [place] [address]Dr. Chrissy Frazier MCHC (RBC) [Mass/Vol] 34.1 g/dL Normal 29.9-35.2 [facility] Comment on above: Performed By: #### C BC ####[facility] Zooldelcnc[address] [place], [place] [address]Dr. Chrissy Frazier MCV (RBC) [Entitic vol] 82.9 fL Normal 80.0-94.0 [facility] Comment on above: Performed By: #### C BC ####[facility] Tjqecceyyn7560[address] [place], [place] [address]Dr. Chrissy Frazier MONO # 0.3 103/ul Normal 0.3-0.8 [facility] Comment on above: Performed By: #### C BC ####[facility] Zxemulmqqi330[address] [place], [place] [address]Dr. Chrissy Frazier Monocytes/100 WBC (Bld) 2.0 % Normal 1.7-12.0 [facility] Comment on above: Performed By: #### C BC ####[facility] Ruwhumqeqw4794[address] [place], [place] [address]DrNancy Frazier NEUT # 14.0 103/ul Critically high 1.4-6.5 [facility] Comment on above: Performed By: #### C BC ####[facility] Uixvffvzpy3140[address] [place], [place] [address]Dr. Chrissy Frazier Neutrophils/100 WBC (Bld) 85.1 % Critically high 43.0-75.0 [facility] Comment on above: Performed By: #### C BC ####[facility] Izcbgeitor48[address] [place] [address]Dr. Chrissy Frazier Platelet mean volume (Bld) [Entitic vol] 10.6 fL Normal 9.5-13.5 [facility] Comment on above: Performed By: #### C BC ####[facility] Rgfnjlvhht5[address] [place] [address]Dr. Chrissy Frazier PLT 411 103/ul Normal 150-450 [facility] Comment on above: Performed By: #### C BC ####[facility] Rhtcxgdgrp7406 [place] [address]Dr. Tishrowan Frazier RBC 5.45 106/ul Normal 4.70-6.10 [facility] Comment on above: Performed By: #### C BC ####[facility] Weasvwuuue24[address] [place], [place] [address]Dr. Chrissy Frazier WBC 16.5 103/ul Critically high 4.0-11.0 [facility] Comment on above: Performed By: #### C BC ####[facility] Rycfhrutxp[address] [place], [place] [address]Dr. Chrissy Freddie LIPASEon 10-22-2022 Lipase [Catalytic activity/Vol] 57.0 U/L Critically low 73.0-393.0 [facility] Comment on above: Performed By: #### L JULIEN CMP, TERRENCE ####[facility] Qvvnnhelff6357 [place] [address]Dr. Chrissy Frazier PROF 14(COMP METB)on 022 Albumin [Mass/Vol] 4.2 g/dL Normal 3.4-5.0 [facility] Comment on above: Performed By: #### L IPA CMP, TERRENCE ####[facility] Wwhaqslxse8986 [place] [address]Dr. Chrissy Frazier Albumin/Globulin [Mass ratio] 1.0 {ratio} Normal [facility] Comment on above: Performed By: #### L IPA, CMP, TERRENCE ####[facility] Tzyyrpxtei0720 [place] [address]Dr. Chrissy Frazier ALP [Catalytic activity/Vol] 92 U/L Normal 46-116 [facility] Comment on above: Performed By: #### L IPA, CMP, TERRENCE ####[facility] Hksdfkmoru0735 [place] [address]Dr. Chrissy Frazier ALT [Catalytic activity/Vol] 26 U/L Normal 16-63 [facility] Comment on above: Performed By: #### L IPA, CMP, TERRENCE ####[facility] Jbbymhfoin6303 [place] [address]Dr. Chrissy Frazier Anion gap [Moles/Vol] 19.5 mmol/L Normal [facility] Comment on above: Performed By: #### L IPA, CMP, TERRENCE ####[facility] Cwvvqukcwz25[address] [place], [place] [address]Dr. Chrissy Frazier AST [Catalytic activity/Vol] 19 U/L Normal 15-37 [facility] Comment on above: Performed By: #### L IPA, CMP, TERRENCE ####[facility] Jqkdjdlytr9[address] [place], [place] [address]Dr. Chrissy Frazier Bilirubin [Mass/Vol] 0.7 mg/dL Normal 0.2-1.0 [facility] Comment on above: Performed By: #### L IPA, CMP, TERRENCE ####[facility] Yfifedfnex7633 [place] [address]Dr. Chrissy Frazier Calcium [Mass/Vol] 9.6 mg/dL Normal 8.5-10.1 [facility] Comment on above: Performed By: #### L IPA, CMP, TERRENCE ####[facility] Sgqndipixe2380 [place] [address]Dr. Chrissy Frazier Chloride [Moles/Vol] 102 mmol/L Normal 98-107 [facility] Comment on above: Performed By: #### L IPA, CMP, TERRENCE ####[facility] Lbbpqbhnlz8993 [place] [address]Dr. Chrissy Frazier CO2 [Moles/Vol] 19.1 mmol/L Critically low 21.0-32.0 [facility] Comment on above: Performed By: #### L IPA CMP, TERRENCE ####[facility] Fngolpprdl6835 [place] [address]Dr. Chrissy Frazier Creatinine [Mass/Vol] 1.47 mg/dL Critically high 0.70-1.30 [facility] Comment on above: Performed By: #### L IPA CMP, TERRENCE ####[facility] Nmygbctyre787[address] [place], [place] [address]Dr. Chrissy Freddie EGFR-AF SURINAMESE >60 Normal >=60 [facility] Comment on above: Performed By: #### L IPA CMP, TERRENCE ####[facility] Zuhhmednij33[address] [place], [place] [address]Dr. Tishrowan Freddie EGFR-NON AF SURINAMESE 56 mL/min/1.73m2 Critically low >=60 [facility] Comment on above: Performed By: #### L IPA CMP, TERRENCE ####[facility] Dhnkmomrmq227[address] [place], [place] [address]Dr. Chrissy Frazier Globulin (S) [Mass/Vol] 4.3 g/dL Normal [facility] Comment on above: Performed By: #### L IPA CMP, TERRENCE ####[facility] Wliogqxdis0384[address] [place], [place] [address]Dr. Chrissy Frazier Glucose [Mass/Vol] 189 mg/dL Critically high 74-106 [facility] Comment on above: Performed By: #### L IPA CMP, ETRRENCE ####[facility] Mwefvzntvb164[address] [place], [place] [address]Dr. Chrissy Frazier Potassium [Moles/Vol] 4.6 mmol/L Normal 3.5-5.1 [facility] Comment on above: Performed By: #### L IPA CMP, TERRENCE ####[facility] Utlzfaliyv35[address] [place], [place] [address]Dr. Chrissy Frazier Protein [Mass/Vol] 8.5 g/dL Critically high 6.4-8.2 [facility] Comment on above: Performed By: #### L IPA CMP, TERRENCE ####[facility] Fjgfnkrhig13[address] [place] [id number]. Chrissy Freddie Sodium [Moles/Vol] 136 mmol/L Normal 136-145 [facility] Comment on above: Performed By: #### L IPA, CMP, TERRENCE ####[facility] Qhxvpcdzkr1729 [place] [address]Dr. Chrissy Freddie Urea nitrogen [Mass/Vol] 16.0 mg/dL Normal 7.0-18.0 [facility] Comment on above: Performed By: #### L IPA, CMP, TERRENCE ####[facility] Rmcquvartu7847 [place] [address]Dr. Tishrowan Frazier Urea nitrogen/Creatinine [Mass ratio] 10.9 mg/mg Normal [facility] Comment on above: Performed By: #### L IPA, CMP, TERRENCE ####[facility] Mkuqbebtay725[address] [place], [place] [address]Dr. Tishrowan Frazier AMYLASEon 09-03-2022 Amylase [Catalytic activity/Vol] 25 U/L Normal 25-115 [facility] Comment on above: Performed By: #### L IPA, TERRENCE, CMP ####[facility] Cpirlzgnoq39[address] [place], [place] [address]Dr. Chrissy Frazier CBC AUTO DIFFon 09-03-2022 BASO # 0.0 103/ul Normal 0.0-0.1 [facility] Comment on above: Performed By: #### C BC ####[facility] Lrfnqlldvf56[address] [place], [place] [address]Dr. Chrissy Frazier Basophils/100 WBC (Bld) 0.1 % Critically low 0.2-2.0 [facility] Comment on above: Performed By: #### C BC ####[facility] Cjkihvhxmd5867[address] [place], [place] [address]Dr. Chrissy Frazier EO # 0.0 103/ul Normal 0.0-0.7 [facility] Comment on above: Performed By: #### C BC ####[facility] Nybzknetar9066[address] [place], [place] [address]Dr. Chrissy Frazier Eosinophils/100 WBC (Bld) 0.1 % Critically low 0.9-7.0 [facility] Comment on above: Performed By: #### C BC ####[facility] Ailzbikxot7895 [place] [address]Dr. Chrissy Frazier Erythrocyte distribution width (RBC) [Ratio] 14.0 % Normal 11.0-15.0 [facility] Comment on above: Performed By: #### C BC ####[facility] Kbdecjcose8582 [place] [address]Dr. Chrissy Frazier Hematocrit (Bld) [Volume fraction] 42.5 % Normal 42.0-54.0 [facility] Comment on above: Performed By: #### C BC ####[facility] Jwvvpwsrja45[address] [place], [place] [address]Dr. Chrissy Frazier Hemoglobin (Bld) [Mass/Vol] 14.1 g/dL Normal 14.0-18.0 [facility] Comment on above: Performed By: #### C BC ####[facility] Qalczmludg659[address] [place], [place] [address]Dr. Chrissy Frazier IG # 0.06 10e3/ul Critically high 0.00-0.03 [facility] Comment on above: Performed By: #### C BC ####[facility] Mndhvpmaur8984[address] [place], [place] [address]Dr. Chrissy Frazier IG % 0.4 % Normal 0.0-0.5 [facility] Comment on above: Performed By: #### C BC ####[facility] Pwqxptgxvq4734[address] [place], [place] [address]Dr. Chrissy Frazier LYMPH # 2.5 103/ul Normal 1.2-3.8 [facility] Comment on above: Performed By: #### C BC ####[facility] Zqjsowofrk3458[address] [place], [place] [address]Dr. Chrissy Frazier Lymphocytes/100 WBC (Bld) 16.3 % Critically low 20.5-60.0 [facility] Comment on above: Performed By: #### C BC ####[facility] Nwhaazjnoj9377[address] [place], [place] [address]Dr. Chrissy Frazier MANUAL DIFF REQ NO Normal [facility] Comment on above: Performed By: #### C BC ####[facility] Lbswvsvrzx9884 [place] [id number] Chrissy Freddie MCH (RBC) [Entitic mass] 28.1 pg Normal 25.9-34.0 [facility] Comment on above: Performed By: #### C BC ####[facility] Icbcqtdrsn7[address] [place] [address]Dr. Chrissy Frazier MCHC (RBC) [Mass/Vol] 33.2 g/dL Normal 29.9-35.2 [facility] Comment on above: Performed By: #### C BC ####[facility] Eiiklgofpc0697 [place] [address]DrNancy Frazier MCV (RBC) [Entitic vol] 84.8 fL Normal 80.0-94.0 [facility] Comment on above: Performed By: #### C BC ####[facility] Knrclmjpsl[address] [place], [place] [address]DrNancy Frazier MONO # 1.1 103/ul Critically high 0.3-0.8 [facility] Comment on above: Performed By: #### C BC ####[facility] Firjszbwik60[address] [place], [place] [address]DrNancy Frazier Monocytes/100 WBC (Bld) 7.4 % Normal 1.7-12.0 [facility] Comment on above: Performed By: #### C BC ####[facility] Ahamoeeqdq905[address] [place], [place] [address]DrNancy Frazier NEUT # 11.5 103/ul Critically high 1.4-6.5 [facility] Comment on above: Performed By: #### C BC ####[facility] Yiamttbngu[address] [place], [place] [id number] Frazier Neutrophils/100 WBC (Bld) 75.7 % Critically high 43.0-75.0 [facility] Comment on above: Performed By: #### C BC ####[facility] Knfegediri27[address] [place], [place] [address]DrNancy Frazier Platelet mean volume (Bld) [Entitic vol] 10.6 fL Normal 9.5-13.5 [facility] Comment on above: Performed By: #### C BC ####[facility] Skqxmuhqcj7919 [place] [address]Dr. Chrissy Frazier PLT 310 103/ul Normal 150-450 [facility] Comment on above: Performed By: #### C BC ####[facility] Tszecqgnyy0605 [place] [address]Dr. Chrissy Frazier RBC 5.01 106/ul Normal 4.70-6.10 [facility] Comment on above: Performed By: #### C BC ####[facility] Iorwuwkhuj0087 [place] [address]Dr. Chrissy Frazier WBC 15.2 103/ul Critically high 4.0-11.0 [facility] Comment on above: Performed By: #### C BC ####[facility] Sppmhwqwxi7354[address] [place], [place] [address]Dr. Chrissy Frazier LIPASEon 09-03-2022 Lipase [Catalytic activity/Vol] 46.0 U/L Critically low 73.0-393.0 [facility] Comment on above: Performed By: #### L TERRENCE VICTORIA, CMP ####[facility] Syzjjuevht7[address] [place], [place] [address]Dr. Chrissy Frazier PROF 14(COMP METB)on 022 Albumin [Mass/Vol] 3.7 g/dL Normal 3.4-5.0 [facility] Comment on above: Performed By: #### L TERRENCE VICTORIA, CMP ####[facility] Lnwegzmvlm7[address] [place], [place] [address]Dr. Chrissy Frazier Albumin/Globulin [Mass ratio] 1.0 {ratio} Normal [facility] Comment on above: Performed By: #### L TERRENCE VICTORIA, CMP ####[facility] Ucjitaogqc3584[address] [place], [place] [address]Dr. Chrissy Frazier ALP [Catalytic activity/Vol] 65 U/L Normal 46-116 [facility] Comment on above: Performed By: #### L TERRENCE VICTORIA, CMP ####[facility] Rbsetthvqe5575 [place] [address]Dr. Chrissy Frazier ALT [Catalytic activity/Vol] 42 U/L Normal 16-63 [facility] Comment on above: Performed By: #### L TERRENCE VICTORIA, CMP ####[facility] Vhnufxpcud0760 [place] [address]Dr. Chrissy Frazier Anion gap [Moles/Vol] 14.4 mmol/L Normal [facility] Comment on above: Performed By: #### L TERRENCE VICTORIA, CMP ####[facility] Ckijkzaddw88[address] [place], [place] [address]Dr. Chrissy Frazier AST [Catalytic activity/Vol] 16 U/L Normal 15-37 [facility] Comment on above: Performed By: #### L TERRENCE VICTORIA, CMP ####[facility] Ewgmwnfije7527[address] [place], [place] [address]Dr. Chrissy Frazier Bilirubin [Mass/Vol] 0.4 mg/dL Normal 0.2-1.0 [facility] Comment on above: Performed By: #### L TERRENCE VICTORIA, CMP ####[facility] Cedwxefwnz[address] [place], [place] [address]Dr. Chrissy Frazier Calcium [Mass/Vol] 8.7 mg/dL Normal 8.5-10.1 [facility] Comment on above: Performed By: #### L TERRENCE VICTORIA, CMP ####[facility] Sfxnqtoqkp6174[address] [place], [place] [address]Dr. Chrissy Frazier Chloride [Moles/Vol] 105 mmol/L Normal 98-107 [facility] Comment on above: Performed By: #### L TERRENCE VICTORIA, CMP ####[facility] Hleehaemvk7606 [place] [address]Dr. Chrissy Frazier CO2 [Moles/Vol] 22.6 mmol/L Normal 21.0-32.0 [facility] Comment on above: Performed By: #### L TERRENCE VICTORIA, CMP ####[facility] Vudsrabtoy[address] [place], [place] [address]Dr. Chrissy Frazier Creatinine [Mass/Vol] 1.11 mg/dL Normal 0.70-1.30 [facility] Comment on above: Performed By: #### L IPA TERRENCE, CMP ####[facility] Qjqlgewvvx7471 [place] [id number]. Chrissy Frazier EGFR-AF SURINAMESE >60 Normal >=60 [facility] Comment on above: Performed By: #### L IPA TERRENCE, CMP ####[facility] Gfibyipgiz3725 [place] [id number]. Chrissy Frazier EGFR-NON AF SURINAMESE >60 Normal >=60 [facility] Comment on above: Performed By: #### L IPA TERRENCE, CMP ####[facility] Hnxjkpbtyf2091 [place] [address]Dr. Chrissy Frazier Globulin (S) [Mass/Vol] 3.7 g/dL Normal [facility] Comment on above: Performed By: #### L JULIEN TERRENCE, CMP ####[facility] Yslbesxmwk6567 [place] [address]Dr. Chrissy Frazier Glucose [Mass/Vol] 121 mg/dL Critically high 74-106 [facility] Comment on above: Performed By: #### L JULIEN TERRENCE, CMP ####[facility] Kiytpsxbqj1011 [place] [address]Dr. Chrissy Frazier Potassium [Moles/Vol] 4.0 mmol/L Normal 3.5-5.1 [facility] Comment on above: Performed By: #### L JULIEN TERRENCE, CMP ####[facility] Aquheaqrst8510 [place] [address]Dr. Chrissy Frazier Protein [Mass/Vol] 7.4 g/dL Normal 6.4-8.2 [facility] Comment on above: Performed By: #### L JULIEN TERRENCE, CMP ####[facility] Nbonrfuhkf8456 [place] [address]Dr. Chrissy Frazier Sodium [Moles/Vol] 138 mmol/L Normal 136-145 [facility] Comment on above: Performed By: #### L IPA TERRENCE, CMP ####[facility] Wtvsaidpss6937 [place] [address]Dr. Chrissy Frazier Urea nitrogen [Mass/Vol] 6.0 mg/dL Critically low 7.0-18.0 [facility] Comment on above: Performed By: #### L IPA, TERRENCE, CMP ####[facility] Bvevfrubul[address] [place], [place] [address]Dr. Chrissy Frazier Urea nitrogen/Creatinine [Mass ratio] 5.4 mg/mg Normal [facility] Comment on above: Performed By: #### L IPA, TERRENCE, CMP ####[facility] Rciszrenxe23[address] [place], [place] [address]Dr. Chrissy Frazier AMYLASEon 09-02-2022 Amylase [Catalytic activity/Vol] 29 U/L Normal 25-115 [facility] Comment on above: Performed By: #### A MY, CMP, LIPA ####[facility] Zsklbtsgcq[address] [place], [place] [address]Dr. Chrissy Frazier CBC AUTO DIFFon 09-02-2022 BASO # 0.1 103/ul Normal 0.0-0.1 [facility] Comment on above: Performed By: #### C BC ####[facility] Grgzxesnht[address] [place], [place] [address]Dr. Chrissy Frazier Basophils/100 WBC (Bld) 0.4 % Normal 0.2-2.0 [facility] Comment on above: Performed By: #### C BC ####[facility] Cppgfwnidt[address] [place], [place] [address]Dr. Chrissy Frazier EO # 0.1 103/ul Normal 0.0-0.7 [facility] Comment on above: Performed By: #### C BC ####[facility] Ixjqewnzvy[address] [place], [place] [address]Dr. Chrissy Frazier Eosinophils/100 WBC (Bld) 0.7 % Critically low 0.9-7.0 [facility] Comment on above: Performed By: #### C BC ####[facility] Xcvlervsjt[address] [place], [place] [address]Dr. Chrissy Frazier Erythrocyte distribution width (RBC) [Ratio] 13.7 % Normal 11.0-15.0 [facility] Comment on above: Performed By: #### C BC ####[facility] Ygtdudaxfu9332 [place] [id number]. Chrissy Frazier Hematocrit (Bld) [Volume fraction] 48.3 % Normal 42.0-54.0 [facility] Comment on above: Performed By: #### C BC ####[facility] Fdjmfesxtx3064 [place] [id number]. Chrissy Frazier Hemoglobin (Bld) [Mass/Vol] 16.0 g/dL Normal 14.0-18.0 [facility] Comment on above: Performed By: #### C BC ####[facility] Iohhjsxiqd5984 [place] [id number]. Chrissy Freddie IG # 0.09 10e3/ul Critically high 0.00-0.03 [facility] Comment on above: Performed By: #### C BC ####[facility] Khbddyzrgr1526 [place] [address]Dr. Chrissy Frazier IG % 0.5 % Normal 0.0-0.5 [facility] Comment on above: Performed By: #### C BC ####[facility] Tnfbgugnsv3094 [place] [address]Dr. Tishrowan Frazier LYMPH # 3.7 103/ul Normal 1.2-3.8 [facility] Comment on above: Performed By: #### C BC ####[facility] Owpcelaivi9[address] [place] [address]Dr. Tishrowan Frazier Lymphocytes/100 WBC (Bld) 21.5 % Normal 20.5-60.0 [facility] Comment on above: Performed By: #### C BC ####[facility] Xoyrsqqdke5220 [place] [id number]. Tishrowan Frazier MANUAL DIFF REQ NO Normal [facility] Comment on above: Performed By: #### C BC ####[facility] Fgvnxmkosh7167 [place] [address]Dr. Chrissy Freddie MCH (RBC) [Entitic mass] 28.1 pg Normal 25.9-34.0 [facility] Comment on above: Performed By: #### C BC ####[facility] Bzydpgipyi4621 [place] [id number]. Chrissy Frazier MCHC (RBC) [Mass/Vol] 33.1 g/dL Normal 29.9-35.2 [facility] Comment on above: Performed By: #### C BC ####[facility] Rfzjcsyusa3875 [place] [id number]. Chrissy Frazier MCV (RBC) [Entitic vol] 84.7 fL Normal 80.0-94.0 [facility] Comment on above: Performed By: #### C BC ####[facility] Yrqxshfgog9369 [place] [id number]. Chrissy Frazier MONO # 0.7 103/ul Normal 0.3-0.8 [facility] Comment on above: Performed By: #### C BC ####[facility] Uvjsbvsqih4862 [place] [address]Dr. Chrissy Frazier Monocytes/100 WBC (Bld) 4.2 % Normal 1.7-12.0 [facility] Comment on above: Performed By: #### C BC ####[facility] Onamcppman[address] [place], [place] [id number]. Chrissy Frazier NEUT # 12.4 103/ul Critically high 1.4-6.5 [facility] Comment on above: Performed By: #### C BC ####[facility] Jakopmynvf8875 [place] [id number]. Chrissy Frazier Neutrophils/100 WBC (Bld) 72.7 % Normal 43.0-75.0 [facility] Comment on above: Performed By: #### C BC ####[facility] Gnrzppcput3785 [place] [id number]. Chrissy Frazier Platelet mean volume (Bld) [Entitic vol] 10.9 fL Normal 9.5-13.5 [facility] Comment on above: Performed By: #### C BC ####[facility] Lrxcahubza2984 [place] [id number]. Chrissy Freddie PLT 386 103/ul Normal 150-450 [facility] Comment on above: Performed By: #### C BC ####[facility] Ldfvelejyt7946 [place], [place] [address]Hs. Chrissy Frazier RBC 5.70 106/ul Normal 4.70-6.10 [facility] Comment on above: Performed By: #### C BC ####[facility] Wwqhqrisfo7312 [place] [id number]. Chrissy Frazier WBC 17.0 103/ul Critically high 4.0-11.0 [facility] Comment on above: Performed By: #### C BC ####[facility] Stjnebqsdr0368 [place] [id number]. Chrissy Frazier Covid-19 PCR (CVDTBH)on 08-21 SARS-CoV-2 (COVID-19) RNA RHIANNON+probe Ql (Unsp spec) Not detected Normal NOT DETECTED [facility] Comment on above: Result Comment: When diagnostic [...] for this test is supported by the [place] of Health and Human Service's declaration that [...] be used). Performed By: #### C VDTBH ####[facility] Nrnspzeaqv8199 [place] [id number]. Chrissy Frazier LACTATE/LACTIC ACIDon 2021 Lactate [Moles/Vol] 7.1 mmol/L Critically high 0.4-1.9 [facility] Comment on above: Performed By: #### L ACT ####[facility] Cqznuylymp9005 [place] [id number]. Chrissy Frazier Lactate [Moles/Vol] 8.6 mmol/L Critically high 0.4-1.9 [facility] Comment on above: Performed By: #### L ACT ####[facility] Pswlalstmb[address] [place], [place] [address]Dr. Chrissy Frazier LIPASEon 09-02-2022 Lipase [Catalytic activity/Vol] 60.0 U/L Critically low 73.0-393.0 [facility] Comment on above: Performed By: #### A MY, CMP, LIPA ####[facility] Etaidrdknc[address] [place], [place] [address]Dr. Chrissy Frazier POINT OF CARE GLUCOSEon 08-21 Glucose [Mass/Vol] 140 mg/dL Critically high 74-106 [facility] Comment on above: Performed By: #### P OCGLUC ####[facility] Zpcrhjacva4[address] [place], [place] [address]Dr. Chrissy Frazier PROF 14(COMP METB)on 022 Albumin [Mass/Vol] 4.3 g/dL Normal 3.4-5.0 [facility] [place] [facility] Comment on above: Performed By: #### A MY, CMP, LIPA ####[facility] Bopgtomcvv35[address] [place], [place] [address]Dr. Chrissy Frazier Albumin/Globulin [Mass ratio] 1.0 {ratio} Normal [facility] Comment on above: Performed By: #### A MY, CMP, LIPA ####[facility] Nbfudanzjm7100 [place] [address]Dr. Chrissy Frazier ALP [Catalytic activity/Vol] 82 U/L Normal 46-116 [facility] Comment on above: Performed By: #### A MY, CMP, LIPA ####[facility] Fslopvwiar3818 [place] [address]Dr. Chrissy Frazier ALT [Catalytic activity/Vol] 48 U/L Normal 16-63 [facility] Comment on above: Performed By: #### A MY, CMP, LIPA ####[facility] Eekowlbuox5299 [place] [address]Dr. Chrissy Frazier Anion gap [Moles/Vol] 25.3 mmol/L Normal [facility] Comment on above: Performed By: #### A MY, CMP, LIPA ####[facility] Dyuyttubbm2201 [place] [address]Dr. Chrissy Frazier AST [Catalytic activity/Vol] 33 U/L Normal 15-37 [facility] Comment on above: Performed By: #### A MY, CMP, LIPA ####[facility] Pkbtnmhida5[address] [place], [place] [address]Dr. Chrissy Frazier Bilirubin [Mass/Vol] 0.7 mg/dL Normal 0.2-1.0 [facility] Comment on above: Performed By: #### A MY, CMP, LIPA ####[facility] Yghbsogaef88[address] [place], [place] [address]Dr. Chrissy Frazier Calcium [Mass/Vol] 9.5 mg/dL Normal 8.5-10.1 [facility] [place] [facility] Comment on above: Performed By: #### A MY, CMP, LIPA ####[facility] Uzgvmfzuls5816[address] [place], [place] [address]Dr. Chrissy Frazier Chloride [Moles/Vol] 100 mmol/L Normal 98-107 [facility] Comment on above: Performed By: #### A MY, CMP, LIPA ####[facility] Pstxsoqasw07[address] [place], [place] [address]Dr. Chrissy Frazier CO2 [Moles/Vol] 14.2 mmol/L Critically low 21.0-32.0 [facility] Comment on above: Performed By: #### A MY, CMP, LIPA ####[facility] Zvddnjhrwr84[address] [place], [place] [address]Dr. Chrissy Frazier Creatinine [Mass/Vol] 1.70 mg/dL Critically high 0.70-1.30 [facility] Comment on above: Performed By: #### A MY, CMP, LIPA ####[facility] Wxkhwqqmge8440[address] [place], [place] [address]Dr. Chrissy Frazier EGFR-AF SURINAMESE 57 mL/min/1.73m2 Critically low >=60 [facility] Comment on above: Performed By: #### A MY, CMP, LIPA ####[facility] Idubdwzieg7073 [place] [phone]. Chrissy Frazier EGFR-NON AF SURINAMESE 47 mL/min/1.73m2 Critically low >=60 [facility] Comment on above: Performed By: #### A MY, CMP, LIPA ####[facility] Gynqihjjgt5141 [place] [address]Dr. Chrissy Frazier Globulin (S) [Mass/Vol] 4.2 g/dL Normal [facility] Comment on above: Performed By: #### A MY, CMP, LIPA ####[facility] Sklgjrfsnt1432 [place] [address]Dr. Chrissy Frazier Glucose [Mass/Vol] 212 mg/dL Critically high 74-106 [facility] Comment on above: Performed By: #### A MY, CMP, LIPA ####[facility] Xrjfnhcdrn2251 [place] [address]Dr. Chrissy Frazier Potassium [Moles/Vol] 3.5 mmol/L Normal 3.5-5.1 [facility] Comment on above: Performed By: #### A MY, CMP, LIPA ####[facility] Wtbijpkrqe3377 [place] [address]Dr. Chrissy Frazier Protein [Mass/Vol] 8.5 g/dL Critically high 6.4-8.2 [facility] Comment on above: Performed By: #### A MY, CMP, LIPA ####[facility] Cmwcanjvfj6853 [place] [address]Dr. Chrissy Frazier Sodium [Moles/Vol] 136 mmol/L Normal 136-145 [facility] [place] [facility] Comment on above: Performed By: #### A MY, CMP, LIPA ####[facility] Uhnmygkuho7068 [place] [address]Dr. Chrissy Frazier Urea nitrogen [Mass/Vol] 9.0 mg/dL Normal 7.0-18.0 [facility] Comment on above: Performed By: #### A MY, CMP, LIPA ####[facility] Tulxjihlwk3018 [place] [address]Dr. Yilan Frazier Urea nitrogen/Creatinine [Mass ratio] 5.3 mg/mg Normal [facility] Comment on above: Performed By: #### A MY, CMP, LIPA ####[facility] Wcqvxfyzlv80[address] [place], [place] [address]Dr. Chrissy Frazier AMYLASEon 07-07-2022 Amylase [Catalytic activity/Vol] 33 U/L Normal 25-115 [facility] Comment on above: Performed By: #### C MP, TERRENCE, BNP, LIPA ####[facility] Irumwwgenp95[address] [place], [place] [address]Dr. Chrissy Frazier BNPon 07-07-2022 Natriuretic peptide B (Bld) [Mass/Vol] 29.0 pg/mL Normal <=450.0 [facility] Comment on above: Performed By: #### C MP, TERRENCE, BNP, LIPA ####[facility] Yapdujecmi25[address] [place], [place] [address]Dr. Chrissy Frazier CBC AUTO DIFFon 07-07-2022 BASO # 0.0 103/ul Normal 0.0-0.1 [facility] Comment on above: Performed By: #### C BC ####[facility] Tmzmicyvnl[address] [place], [place] [address]Dr. Chrissy Frazier Basophils/100 WBC (Bld) 0.4 % Normal 0.2-2.0 [facility] Comment on above: Performed By: #### C BC ####[facility] Dtegtukiud55[address] [place], [place] [address]Dr. Chrissy Frazier EO # 0.3 103/ul Normal 0.0-0.7 [facility] Comment on above: Performed By: #### C BC ####[facility] Qxceoiacwr1504[address] [place], [place] [address]Dr. Chrissy Frazier Eosinophils/100 WBC (Bld) 3.0 % Normal 0.9-7.0 [facility] Comment on above: Performed By: #### C BC ####[facility] Ukrkwghwjl414[address] [place], [place] [address]Dr. Chrissy Frazier Erythrocyte distribution width (RBC) [Ratio] 14.0 % Normal 11.0-15.0 [facility] Comment on above: Performed By: #### C BC ####[facility] Mybizkzscd1152 [place] [address]DrNancy Frazier Hematocrit (Bld) [Volume fraction] 42.8 % Normal 42.0-54.0 [facility] Comment on above: Performed By: #### C BC ####[facility] Xonqlbxvpn2844 [place] [address]DrNancy Frazier Hemoglobin (Bld) [Mass/Vol] 14.3 g/dL Normal 14.0-18.0 [facility] Comment on above: Result Comment: IV F LUIDS RUNNING Performed By: #### C BC ####[facility] Nhptwcajsf4[address] [place], [place] [address]DrNancy Frazier IG # 0.05 10e3/ul Critically high 0.00-0.03 [facility] Comment on above: Performed By: #### C BC ####[facility] Wbupeyuveh[address] [place], [place] [address]DrNancy Frazier IG % 0.5 % Normal 0.0-0.5 [facility] Comment on above: Performed By: #### C BC ####[facility] Kvqobzgdci86[address] [place], [place] [address]DrNancy Frazier LYMPH # 2.4 103/ul Normal 1.2-3.8 [facility] Comment on above: Performed By: #### C BC ####[facility] Lppwmlwwsg[address] [place], [place] [address]DrNancy Frazier Lymphocytes/100 WBC (Bld) 25.5 % Normal 20.5-60.0 [facility] Comment on above: Performed By: #### C BC ####[facility] Exgyhxugli4894[address] [place], [place] [address]DrNancy Frazier MANUAL DIFF REQ NO Normal [facility] Comment on above: Performed By: #### C BC ####[facility] Exgccmpefe8575 [place] [address]DrNancy Frazier MCH (RBC) [Entitic mass] 28.5 pg Normal 25.9-34.0 [facility] Comment on above: Performed By: #### C BC ####[facility] Ckkrtrtafe3860 [place] [address]Dr. Chrissy Frazier MCHC (RBC) [Mass/Vol] 33.4 g/dL Normal 29.9-35.2 [facility] Comment on above: Performed By: #### C BC ####[facility] Xjyegagjeg5514 [place] [address]Dr. Chrissy Frazier MCV (RBC) [Entitic vol] 85.3 fL Normal 80.0-94.0 [facility] Comment on above: Performed By: #### C BC ####[facility] Cqnokbknal5[address] [place], [place] [address]DrNancy Frazier MONO # 0.7 103/ul Normal 0.3-0.8 [facility] Comment on above: Performed By: #### C BC ####[facility] Mngkaiyrfv7974[address] [place], [place] [address]Dr. Chrissy Frazier Monocytes/100 WBC (Bld) 7.8 % Normal 1.7-12.0 [facility] Comment on above: Performed By: #### C BC ####[facility] Amtfemlkgk5864[address] [place], [place] [address]Dr. Chrissy Frazier NEUT # 5.8 103/ul Normal 1.4-6.5 [facility] Comment on above: Performed By: #### C BC ####[facility] Qqbgkjwzkg[address] [place], [place] [address]Dr. Chrissy Frazier Neutrophils/100 WBC (Bld) 62.8 % Normal 43.0-75.0 [facility] Comment on above: Performed By: #### C BC ####[facility] Luvfqxizdb044[address] [place], [place] [address]Dr. Chrissy Frazier Platelet mean volume (Bld) [Entitic vol] 10.8 fL Normal 9.5-13.5 [facility] Comment on above: Performed By: #### C BC ####[facility] Oghuopxlgm4[address] [place], [place] [address]Dr. Chrissy Frazier PLT 310 103/ul Normal 150-450 [facility] Comment on above: Performed By: #### C BC ####[facility] Eeoawyturs2899 [place] [id number]. Chrissy Frazier RBC 5.02 106/ul Normal 4.70-6.10 [facility] Comment on above: Performed By: #### C BC ####[facility] Rcnbgackhm7708 [place], [place] [address]Yp. Chrissy Frazier WBC 9.3 103/ul Normal 4.0-11.0 [facility] Comment on above: Performed By: #### C BC ####[facility] Roprqlcsls8879 [place] [id number]. Tishrowan Freddie CULTURE URINEon 07-07-2022 CULTURE URINE Culture Observations: NO GROWTH. Normal [facility] Comment on above: Performed By: #### U RCX ####[facility] Xfkammsgog4914 [place] [id number]. Chrissy Frazier DRUG SCREEN RAPID (URINE)on 07-07-2022 AMP Negative Normal NEGATIVE [facility] Comment on above: Performed By: #### D RUGRPD ####[facility] Yiadnsfjqx0537 [place] [id number]. Chrissy Frazier BAR Negative Normal NEGATIVE [facility] Comment on above: Performed By: #### D RUGRPD ####[facility] Znoniuquhl6907 [place] [id number]. Chrissy Frazier BUP Negative Normal NEGATIVE [facility] Comment on above: Performed By: #### D RUGRPD ####[facility] Broibyuebm8090 [place] [id number]. Chrissy Frazier BZO Positive Abnormal NEGATIVE [facility] Comment on above: Performed By: #### D RUGRPD ####[facility] Grhctmihog4026 [place] [id number]. Chrissy Frazier LAUREN Negative Normal NEGATIVE [facility] Comment on above: Performed By: #### D RUGRPD ####[facility] Kbluwesisr2285 [place] [id number]. Chrissy Frazier CUT-OFFS SEE BELOW Normal [facility] Comment on above: Result Comment: AMP (Amphetamine): 500ng/mL, BAR (Barbituates): 200 ng/mL, BZO (Benzodiazepines): 150 ng/mL, BUP (Buprenorphine): 10 ng/mL, LAUREN (Cocaine): 150 ng/mL, mAMP (Methamphetamine): 500 ng/mL, MTD (Methadone): 200 ng/mL, OPI (Opiates): 100 ng/mL, OXY (Oxycodone): 100 ng/mL, PCP (Phencyclidine): 25 ng/mL, PPX (Propoxyphene): 300 ng/mL, THC (Cannabinoids): 50 ng/mL, TCA (Trycyclic Antidepressants): 300 ng/mL Performed By: #### D RUGRPD ####[facility] Iwwjxykzgt[address] [place], [place] [address]Dr. [facility] DRUG CUT HEADER DRUG CLASS TEST SYSTEM CUT-OFF CONCENTRATIONS ARE FOLLOWS: Normal [facility] Comment on above: Performed By: #### D RUGRPD ####[facility] Wqnnjfbxdj64[address] [place], [place] [address]Dr. Tishrowan [facility] mAMP Negative Normal NEGATIVE [facility] Comment on above: Performed By: #### D RUGRPD ####[facility] Enchztxyjq[address] [place], [place] [address]Dr. Chrissy [facility] MTD Negative Normal NEGATIVE [facility] Comment on above: Performed By: #### D RUGRPD ####[facility] Uzswbwcsld39[address] [place], [place] [address]Dr. Chrissy [facility] OPI Negative Normal NEGATIVE [facility] Comment on above: Performed By: #### D RUGRPD ####[facility] Uxiexbnfik15[address] [place], [place] [address]Dr. Chrissy Frazier OXY Negative Normal NEGATIVE [facility] Comment on above: Performed By: #### D RUGRPD ####[facility] Tnqhduguyf7[address] [place], [place] [address]Dr. Chrissy [facility] PCP Negative Normal NEGATIVE [facility] Comment on above: Performed By: #### D RUGRPD ####[facility] Wjupgskrtu[address] [place], [place] [address]Dr. Chrissy Freddie PPX Negative Normal NEGATIVE [facility] Comment on above: Performed By: #### D RUGRPD ####[facility] Ntznzfffjw1885 [place] [address]Dr. Chrissy Freddie TCA Positive Abnormal NEGATIVE [facility] Comment on above: Performed By: #### D RUGRPD ####[facility] Deffhynuoa3859 [place] [address]Dr. Chrissy Freddie THC Positive Abnormal NEGATIVE [facility] Comment on above: Performed By: #### D RUGRPD ####[facility] Eofxylwxes3747 [place] [address]Dr. Tishrowan Frazier LIPASEon 07-07-2022 Lipase [Catalytic activity/Vol] 118.0 U/L Normal 73.0-393.0 [facility] Comment on above: Performed By: #### L IPA ####[facility] Dsibdgjvqf80[address] [place], [place] [address]Dr. Chrissy Frazier Lipase [Catalytic activity/Vol] 114.0 U/L Normal 73.0-393.0 [facility] Comment on above: Performed By: #### C MP, TERRENCE, BNP, LIPA ####[facility] Obtsvreneu186[address] [place], [place] [address]Dr. Chrissy Frazier PROF 14(COMP METB)on 022 Albumin [Mass/Vol] 3.4 g/dL Normal 3.4-5.0 [facility] [place] [facility] Comment on above: Performed By: #### C MP, TERRENCE, BNP, LIPA ####[facility] Bdpvaxpxoa0356 [place] [address]Dr. Chrissy Frazier Albumin/Globulin [Mass ratio] 1.1 {ratio} Normal [facility] Comment on above: Performed By: #### C MP, TERRENCE, BNP, LIPA ####[facility] Tasotifevg4294 [place] [address]Dr. Chrissy Frazier ALP [Catalytic activity/Vol] 68 U/L Normal 46-116 [facility] Comment on above: Performed By: #### C MP, TERRENCE, BNP, LIPA ####[facility] Pniavcjzjr7170 [place] [address]Dr. Chrissy Frazier ALT [Catalytic activity/Vol] 93 U/L Critically high 16-63 [facility] Comment on above: Performed By: #### C MP, TERRENCE, BNP, LIPA ####[facility] Xojaxetruh3789 [place] [address]Dr. Chrissy Frazier Anion gap [Moles/Vol] 14.4 mmol/L Normal [facility] Comment on above: Performed By: #### C MP, TERRENCE, BNP, LIPA ####[facility] Kaagexwkrl4773 [place] [address]Dr. Chrissy Frazier AST [Catalytic activity/Vol] 33 U/L Normal 15-37 [facility] Comment on above: Performed By: #### C MP, TERRENCE, BNP, LIPA ####[facility] Hxoepfeefj1777 [place] [address]Dr. Chrissy Frazier Bilirubin [Mass/Vol] 0.9 mg/dL Normal 0.2-1.0 [facility] Comment on above: Performed By: #### C MP, TERRENCE, BNP, LIPA ####[facility] Hdaibjqmtp[address] [place], [place] [address]Dr. Chrissy Frazier Calcium [Mass/Vol] 8.2 mg/dL Critically low 8.5-10.1 [facility] Comment on above: Performed By: #### C MP, TERRENCE, BNP, LIPA ####[facility] Zkaqqsxhak88[address] [place], [place] [address]Dr. Chrissy Frazier Chloride [Moles/Vol] 103 mmol/L Normal 98-107 [facility] Comment on above: Performed By: #### C MP, TERRENCE, BNP, LIPA ####[facility] Vzoawroxvy7[address] [place], [place] [address]Dr. Chrissy Frazier CO2 [Moles/Vol] 22.9 mmol/L Normal 21.0-32.0 [facility] Comment on above: Performed By: #### C MP, TERRENCE, BNP, LIPA ####[facility] Zhayjamgtr[address] [place], [place] [address]Dr. Chrissy Frazier Creatinine [Mass/Vol] 1.07 mg/dL Normal 0.70-1.30 [facility] Comment on above: Performed By: #### C MP, TERRENCE, BNP, LIPA ####[facility] Lrikndlwxr3521 [place] [address]Dr. Chrissy Frazier EGFR-AF SURINAMESE >60 Normal >=60 [facility] Comment on above: Performed By: #### C MP, TERRENCE, BNP, LIPA ####[facility] Ucygkfcvvt4391 [place] [address]Dr. Chrissy Frazier EGFR-NON AF SURINAMESE >60 Normal >=60 [facility] Comment on above: Performed By: #### C MP, TERRENCE, BNP, LIPA ####[facility] Qiautmcglz7146 [place] [address]Dr. Chrissy Frazier Globulin (S) [Mass/Vol] 3.2 g/dL Normal [facility] Comment on above: Performed By: #### C MP, TERRENCE, BNP, LIPA ####[facility] Ueciwaskvo16[address] [place], [place] [address]Dr. Chrissy Frazier Glucose [Mass/Vol] 96 mg/dL Normal 74-106 [facility] Comment on above: Performed By: #### C MP, TERRENCE, BNP, LIPA ####[facility] Wjbzznkfea7655 [place] [address]Dr. Chrissy Frazier Potassium [Moles/Vol] 3.3 mmol/L Critically low 3.5-5.1 [facility] Comment on above: Performed By: #### C MP, TERRENCE, BNP, LIPA ####[facility] Tbtdvdpuxv5593 [place] [address]Dr. Chrissy Frazier Protein [Mass/Vol] 6.6 g/dL Normal 6.4-8.2 [facility] Comment on above: Performed By: #### C MP, TERRENCE, BNP, LIPA ####[facility] Bcqchhfiov1004 [place] [address]Dr. Chrissy Frazier Sodium [Moles/Vol] 137 mmol/L Normal 136-145 [facility] Comment on above: Performed By: #### C MP, TERRENCE, BNP, LIPA ####[facility] Sawsaxpoch[address] [place], [place] [address]Dr. Chrissy Frazier Urea nitrogen [Mass/Vol] 13.0 mg/dL Normal 7.0-18.0 [facility] Comment on above: Performed By: #### C MP, TERRENCE, BNP, LIPA ####[facility] Qvzkeghdxb1979[address] [place], [place] [address]Dr. Chrissy Frazier Urea nitrogen/Creatinine [Mass ratio] 12.1 mg/mg Normal [facility] Comment on above: Performed By: #### C MP, TERRENCE, BNP, LIPA ####[facility] Vggbhsjgle[address] [place], [place] [address]Dr. Chrissy Frazier UA RANDOM W/MICROSCOPICon BACTERIA TRACE Abnormal NONE SEEN [facility] Comment on above: Performed By: #### U AMIC ####[facility] Iunuuvzgmz0[address] [place], [place] [address]Dr. Chrissy Frazier Bilirubin Ql (U) Negative Normal NEGATIVE [facility] Comment on above: Performed By: #### U AMIC ####[facility] Mfuwnyngvl3940[address] [place], [place] [address]Dr. Chrissy Frazier CAST NONE SEEN Normal NONE SEEN [facility] Comment on above: Performed By: #### U AMIC ####[facility] Hjprauutdx07[address] [place], [place] [address]Dr. Chrissy Frazier Clarity (U) CLEAR Normal CLEAR [facility] Comment on above: Performed By: #### U AMIC ####[facility] Teqfukpsch47[address] [place], [place] [address]Dr. Chrissy Frazier Color (U) YELLOW Normal YELLOW [facility] Comment on above: Performed By: #### U AMIC ####[facility] Fgvhfgehuk98[address] [place], [place] [address]Dr. Chrissy Frzaier Crystals LM Nom (Urine sed) SEEN Abnormal NONE SEEN [facility] Comment on above: Performed By: #### U AMIC ####[facility] Vvuoosoixn4[address] [place], [place] [address]Dr. Chrissy Frazier Epithelial cells LM Ql (Urine sed) RARE Normal NONE SEEN /RARE [facility] Comment on above: Performed By: #### U AMIC ####[facility] Hqzhoxkbqd7690 [place] [address]Dr. Chrissy Frazier Glucose Ql (U) Negative Normal NEGATIVE [facility] Comment on above: Performed By: #### U AMIC ####[facility] Zcpyqsrciv44[address] [place], [place] [address]Dr. Chrissy Frazier Hemoglobin Ql (U) Negative Normal NEGATIVE [facility] Comment on above: Performed By: #### U AMIC ####[facility] Sylvaqxzjz[address] [place], [place] [address]Dr. Chrissy Frazier Ketones Ql (U) 15 mg/dl Abnormal NEGATIVE [facility] Comment on above: Performed By: #### U AMIC ####[facility] Xvpiakdwkx924[address] [place], [place] [address]Dr. Chrissy Frazier LEUKOCYTES Negative Normal NEGATIVE [facility] Comment on above: Performed By: #### U AMIC ####[facility] Wqxbvyytie[address] [place], [place] [address]Dr. Chrissy Frazier MUCOUS NONE SEEN Normal NONE SEEN [facility] Comment on above: Performed By: #### U AMIC ####[facility] Kwehhwmsrv69[address] [place], [place] [address]Dr. Chrissy Frazier Nitrite Ql (U) Negative Normal NEGATIVE [facility] Comment on above: Performed By: #### U AMIC ####[facility] Qrlwqoggke[address] [place], [place] [address]Dr. Chrissy Frazier pH (U) 6.0 [pH] Normal 5-9 [facility] Comment on above: Performed By: #### U AMIC ####[facility] Fcldopqkhh[address] [place], [place] [address]Dr. Chrissy Frazier RBC 0-2 Normal 0-2 [facility] Comment on above: Performed By: #### U AMIC ####[facility] Hoqtilqrsu[address] [place], [place] [address]Dr. Chrissy Frazier SPEC GRAVITY 1.015 Normal 1.005-<=1.025 [facility] Comment on above: Performed By: #### U AMIC ####[facility] Mfnlrzmshl9[address] [place] [address]Dr. Chrissy Frazier UA PROTEIN Negative Normal NEGATIVE/ TRACE [facility] Comment on above: Performed By: #### U AMIC ####[facility] Dumacxblvw[address] [place] [address]Dr. Chrissy Frazier URIC ACID CRYSTALS RARE Normal [facility] Comment on above: Performed By: #### U AMIC ####[facility] Lrnynjeqof6539 [place] [address]Dr. Chrissy Freddie Urobilinogen Qn (U) 0.2 {Estrellita'U}/dL Normal 0.2 - 1. 0 [facility] Comment on above: Performed By: #### U AMIC ####[facility] Lzpevigwow[address] [place], [place] [address]Dr. Tishrowan Frazier WBC 0-2 Abnormal NONE SEEN [facility] Comment on above: Performed By: #### U AMIC ####[facility] Yfanpvtaub96[address] [place], [place] [address]Dr. Chrissy Freddie AMYLASEon 07-06-2022 Amylase [Catalytic activity/Vol] 37 U/L Normal 25-115 [facility] Comment on above: Performed By: #### C MP, LIPA, TERRENCE ####[facility] Quayfplwyt[address] [place], [place] [address]Dr. Chrissy Frazier CBC AUTO DIFFon 07-06-2022 BASO # 0.1 103/ul Normal 0.0-0.1 [facility] Comment on above: Performed By: #### C BC ####[facility] Deabdfjbsq[address] [place], [place] [address]Dr. Tishrowan Frazier Basophils/100 WBC (Bld) 0.4 % Normal 0.2-2.0 [facility] Comment on above: Performed By: #### C BC ####[facility] Euhimjmkzd40[address] [place], [place] [address]Dr. Chrissy Frazier EO # 0.1 103/ul Normal 0.0-0.7 [facility] Comment on above: Performed By: #### C BC ####[facility] Frrqiwhghh15[address] [place] [address]Dr. Chrissy Frazier Eosinophils/100 WBC (Bld) 0.5 % Critically low 0.9-7.0 [facility] Comment on above: Performed By: #### C BC ####[facility] Xscgdebsqu[address] [place], [place] [address]Dr. Chrissy Frazier Erythrocyte distribution width (RBC) [Ratio] 13.6 % Normal 11.0-15.0 [facility] Comment on above: Performed By: #### C BC ####[facility] Pgbypclprm7850[address] [place], [place] [address]Dr. Chrissy rFazier Hematocrit (Bld) [Volume fraction] 47.9 % Normal 42.0-54.0 [facility] Comment on above: Performed By: #### C BC ####[facility] Lyrhijpbqu6725[address] [place], [place] [address]Dr. Chrissy Frazier Hemoglobin (Bld) [Mass/Vol] 16.4 g/dL Normal 14.0-18.0 [facility] Comment on above: Performed By: #### C BC ####[facility] Auguxsmlxf9[address] [place], [place] [address]Dr. Chrissy Frazier IG # 0.09 10e3/ul Critically high 0.00-0.03 [facility] Comment on above: Performed By: #### C BC ####[facility] Atojcqfrwo2128[address] [place], [place] [address]Dr. Chrissy Frazier IG % 0.6 % Critically high 0.0-0.5 [facility] Comment on above: Performed By: #### C BC ####[facility] Ncvzbpioqo9875[address] [place], [place] [address]Dr. Chrissy Frazier LYMPH # 2.5 103/ul Normal 1.2-3.8 [facility] Comment on above: Performed By: #### C BC ####[facility] Taeejdhhtd5470[address] [place], [place] [address]Dr. Chrissy Frazier Lymphocytes/100 WBC (Bld) 16.7 % Critically low 20.5-60.0 [facility] Comment on above: Performed By: #### C BC ####[facility] Lukojzdzfx2552 [place] [address]DrNancy Frazier MANUAL DIFF REQ NO Normal [facility] Comment on above: Performed By: #### C BC ####[facility] Tbqvxrfwgc7690 [place] [address]DrNancy Frazier MCH (RBC) [Entitic mass] 28.1 pg Normal 25.9-34.0 [facility] Comment on above: Performed By: #### C BC ####[facility] Crhclxhiep7613[address] [place], [place] [address]DrNancy Frazier MCHC (RBC) [Mass/Vol] 34.2 g/dL Normal 29.9-35.2 [facility] Comment on above: Performed By: #### C BC ####[facility] Fugphuxpfk1836[address] [place], [place] [address]DrNancy Frazier MCV (RBC) [Entitic vol] 82.2 fL Normal 80.0-94.0 [facility] Comment on above: Performed By: #### C BC ####[facility] Tmtxjxhhpf175[address] [place], [place] [address]DrNancy Frazier MONO # 1.0 103/ul Critically high 0.3-0.8 [facility] Comment on above: Performed By: #### C BC ####[facility] Wxvtxgtfxo7940[address] [place], [place] [address]DrNancy Frazier Monocytes/100 WBC (Bld) 6.7 % Normal 1.7-12.0 [facility] Comment on above: Performed By: #### C BC ####[facility] Svvlrzprgh3847[address] [place], [place] [address]DrNancy Frazier NEUT # 11.3 103/ul Critically high 1.4-6.5 [facility] Comment on above: Performed By: #### C BC ####[facility] Rhodjuoaot[address] [place], [place] [address]DrNancy Frazier Neutrophils/100 WBC (Bld) 75.1 % Critically high 43.0-75.0 [facility] Comment on above: Performed By: #### C BC ####[facility] Kknolfawse7[address] [place] [id number]. Chrissy Frazier Platelet mean volume (Bld) [Entitic vol] 10.6 fL Normal 9.5-13.5 [facility] Comment on above: Performed By: #### C BC ####[facility] Eirtvwuqjq7612 [place] [phone]. Chrissy Frazier PLT 416 103/ul Normal 150-450 [facility] Comment on above: Performed By: #### C BC ####[facility] Ofwlkrgkbz5574 [place] [phone]. Chrissy Frazier RBC 5.83 106/ul Normal 4.70-6.10 [facility] Comment on above: Performed By: #### C BC ####[facility] Tdtivwqsou5215 [place] [phone]. Chrissy Frazier WBC 15.0 103/ul Critically high 4.0-11.0 [facility] Comment on above: Performed By: #### C BC ####[facility] Byfgsuosyu1473 [place] [phone]. Chrissy Frazier [facility]on 06[facility]21 SARS-CoV-2 (COVID-19) RNA RHIANNON+probe Ql (Unsp spec) Not detected Normal NOT DETECTED [facility] Comment on above: Result Comment: When diagnostic [...] for this test is supported by the [place] of Health and Human Service's declaration that [...] be used). Performed By: #### C VDTBH ####[facility] Nqumwuxgov3654 [place] [address]Dr. Chrissy Frazier LIPASEon 07-06-2022 Lipase [Catalytic activity/Vol] 130.0 U/L Normal 73.0-393.0 [facility] Comment on above: Performed By: #### C OSWALD ADAIR, TERRENCE ####[facility] Usesiwedsl9932 [place] [address]Dr. Chrissy Frazier PROF 14(COMP METB)on 022 Albumin [Mass/Vol] 4.4 g/dL Normal 3.4-5.0 [facility] Comment on above: Performed By: #### C MANA LIPA, TERRENCE ####[facility] Yupdzevwva[address] [place], [place] [address]Dr. Chrissy Frazier Albumin/Globulin [Mass ratio] 1.1 {ratio} Normal [facility] Comment on above: Performed By: #### C OSWALD ADAIR TERRENCE ####[facility] Mgswpbvxkb1176[address] [place], [place] [address]Dr. Chrissy Frazier ALP [Catalytic activity/Vol] 83 U/L Normal 46-116 [facility] Comment on above: Performed By: #### C MANA LIPA, TERRENCE ####[facility] Tdwaxdieri2657 [place] [address]Dr. Chrissy Frazier ALT [Catalytic activity/Vol] 107 U/L Critically high 16-63 [facility] Comment on above: Performed By: #### C TESSA ADAIRA, TERRENCE ####[facility] Nwhekaelha0818 [place] [address]Dr. Chrissy Frazier Anion gap [Moles/Vol] 20.5 mmol/L Normal [facility] Comment on above: Performed By: #### C MANA LIPA, TERRENCE ####[facility] Ldnjzgjrmk8524[address] [place], [place] [address]Dr. Chrissy Frazier AST [Catalytic activity/Vol] 46 U/L Critically high 15-37 [facility] Comment on above: Performed By: #### C OSWALD ADAIR, TERRENCE ####[facility] Putelyjzyl8754 [place] [address]Dr. Chrissy Frazier Bilirubin [Mass/Vol] 1.2 mg/dL Critically high 0.2-1.0 [facility] Comment on above: Performed By: #### C TESSA ADAIRA, TERRENCE ####[facility] Adtwrmliqv[address] [place], [place] [address]Dr. Chrissy Frazier Calcium [Mass/Vol] 9.1 mg/dL Normal 8.5-10.1 [facility] Comment on above: Performed By: #### C MANA LIPA, TERRENCE ####[facility] Hugygyqwgf9584[address] [place], [place] [address]Dr. Chrissy Frazier Chloride [Moles/Vol] 100 mmol/L Normal 98-107 [facility] Comment on above: Performed By: #### C TESSA ADAIRA, TERRENCE ####[facility] Olcnxbayya6[address] [place], [place] [address]Dr. Chrissy Frazier CO2 [Moles/Vol] 18.6 mmol/L Critically low 21.0-32.0 [facility] Comment on above: Performed By: #### C MANA LIPA, TERRENCE ####[facility] Qzyhusdois035[address] [place], [place] [address]Dr. Chrissy Frazier Creatinine [Mass/Vol] 1.44 mg/dL Critically high 0.70-1.30 [facility] Comment on above: Performed By: #### C MANA LIPA, TERRENCE ####[facility] Vjzrgictnz1823[address] [place], [place] [address]Dr. Chrissy Frazier EGFR-AF SURINAMESE >60 Normal >=60 [facility] Comment on above: Performed By: #### C MP, LIPA, TERRENCE ####[facility] Empknszjpx1858[address] [place], [place] [address]Dr. Chrissy Frazier EGFR-NON AF SURINAMESE 57 mL/min/1.73m2 Critically low >=60 [facility] Comment on above: Performed By: #### C MANA LIPA, TERRENCE ####[facility] Piqtqvcwbh0403 [place] [address]Dr. Chrissy Frazier Globulin (S) [Mass/Vol] 4.0 g/dL Normal [facility] Comment on above: Performed By: #### C MANA LIPA, TERRENCE ####[facility] Xqcgjsmggj5102 [place] [address]Dr. Chrissy Frazier Glucose [Mass/Vol] 117 mg/dL Critically high 74-106 [facility] Comment on above: Performed By: #### C MANA LIPA, TERRENCE ####[facility] Njrkpnhjpx6458[address] [place], [place] [address]Dr. Chrissy Frazier Potassium [Moles/Vol] 3.1 mmol/L Critically low 3.5-5.1 [facility] Comment on above: Performed By: #### C MANA LIPA, TERRENCE ####[facility] Aynorqwecs[address] [place], [place] [address]Dr. Chrissy Frazier Protein [Mass/Vol] 8.4 g/dL Critically high 6.4-8.2 [facility] Comment on above: Performed By: #### C TESSA ADAIRA, TERRENCE ####[facility] Rmdjyrihvs4588[address] [place], [place] [address]Dr. Chrissy Frazier Sodium [Moles/Vol] 136 mmol/L Normal 136-145 [facility] Comment on above: Performed By: #### C MANA LIPA, TERRENCE ####[facility] Kitocmmppk9456[address] [place], [place] [address]Dr. Chrissy Frazier Urea nitrogen [Mass/Vol] 15.0 mg/dL Normal 7.0-18.0 [facility] Comment on above: Performed By: #### C MANA LIPA, TERRENCE ####[facility] Lhevpxfqnt6[address] [place], [place] [address]Dr. Chrissy Frazier Urea nitrogen/Creatinine [Mass ratio] 10.4 mg/mg Normal [facility] Comment on above: Performed By: #### C MANA LIPA, TERRENCE ####[facility] Skghqabwjx9328 [place] [address]Dr. Chrissy Freddie CBC AUTO DIFFon 07-05-2022 BASO # 0.0 103/ul Normal 0.0-0.1 [facility] Comment on above: Performed By: #### C BC ####[facility] Hkwgxmsimi[address] [place], [place] [address]Dr. Chrissy rFazier Basophils/100 WBC (Bld) 0.3 % Normal 0.2-2.0 [facility] Comment on above: Performed By: #### C BC ####[facility] Rpzcbicgfi[address] [place], [place] [address]Dr. Chrissy Frazier EO # 0.2 103/ul Normal 0.0-0.7 [facility] Comment on above: Performed By: #### C BC ####[facility] Hhwfrqxjwx6[address] [place], [place] [address]Dr. Chrissy Frazier Eosinophils/100 WBC (Bld) 1.5 % Normal 0.9-7.0 [facility] Comment on above: Performed By: #### C BC ####[facility] Lkbzlyeagx207[address] [place], [place] [address]Dr. Tishrowan Frazier Erythrocyte distribution width (RBC) [Ratio] 13.9 % Normal 11.0-15.0 [facility] Comment on above: Performed By: #### C BC ####[facility] Vkxdlclytt020[address] [place], [place] [address]Dr. Chrissy Frazier Hematocrit (Bld) [Volume fraction] 44.5 % Normal 42.0-54.0 [facility] Comment on above: Performed By: #### C BC ####[facility] Yowcfcqvdi7379[address] [place], [place] [address]Dr. Chrissy Frazier Hemoglobin (Bld) [Mass/Vol] 14.8 g/dL Normal 14.0-18.0 [facility] Comment on above: Performed By: #### C BC ####[facility] Vspyzubucd[address] [place], [place] [address]Dr. Chrissy Frazier IG # 0.05 10e3/ul Critically high 0.00-0.03 [facility] Comment on above: Performed By: #### C BC ####[facility] Swoivcmykz6886 [place] [id number]. Chrissy Frazier IG % 0.4 % Normal 0.0-0.5 [facility] Comment on above: Performed By: #### C BC ####[facility] Rsgzxzzgih1987 [place] [phone]. Chrissy Frazier LYMPH # 3.3 103/ul Normal 1.2-3.8 [facility] Comment on above: Performed By: #### C BC ####[facility] Qemcxgadom3580 [place] [phone]. Chrissy Frazier Lymphocytes/100 WBC (Bld) 29.1 % Normal 20.5-60.0 [facility] Comment on above: Performed By: #### C BC ####[facility] Rekjycpudu5564 [place] [address]Dr. Chrissy Frazier MANUAL DIFF REQ NO Normal [facility] Comment on above: Performed By: #### C BC ####[facility] Hlwxyginpr5413 [place] [phone]. Chrissy Frazier MCH (RBC) [Entitic mass] 28.2 pg Normal 25.9-34.0 [facility] Comment on above: Performed By: #### C BC ####[facility] Lmrzidslpn3617 [place] [phone]. Chrissy Frazier MCHC (RBC) [Mass/Vol] 33.3 g/dL Normal 29.9-35.2 [facility] Comment on above: Performed By: #### C BC ####[facility] Eyjihainpb4498 [place] [phone]. Chrissy Frazier MCV (RBC) [Entitic vol] 84.9 fL Normal 80.0-94.0 [facility] Comment on above: Performed By: #### C BC ####[facility] Hgyhubwify2083 [place] [phone]. Chrissy Freddie MONO # 0.6 103/ul Normal 0.3-0.8 [facility] Comment on above: Performed By: #### C BC ####[facility] Wmlgllmhsa9089 [place] [phone]. Chrissy Frazier Monocytes/100 WBC (Bld) 5.4 % Normal 1.7-12.0 [facility] Comment on above: Performed By: #### C BC ####[facility] Amshpulfvu6482 [place] [phone]. Chrissy Frazier NEUT # 7.1 103/ul Critically high 1.4-6.5 [facility] Comment on above: Performed By: #### C BC ####[facility] Jbndwloyun7656 [place] [phone]. Chrissy Frazier Neutrophils/100 WBC (Bld) 63.3 % Normal 43.0-75.0 [facility] Comment on above: Performed By: #### C BC ####[facility] Seiquebosy8223 [place] [address]Dr. Chrissy Frazier Platelet mean volume (Bld) [Entitic vol] 9.9 fL Normal 9.5-13.5 [facility] Comment on above: Performed By: #### C BC ####[facility] Gyrmzmabjf8358 [place] [address]Dr. Chrissy Freddie PLT 339 103/ul Normal 150-450 [facility] Comment on above: Performed By: #### C BC ####[facility] Gcdnznkkpt0669 [place] [phone]. Tishrowan Frazier RBC 5.24 106/ul Normal 4.70-6.10 [facility] Comment on above: Performed By: #### C BC ####[facility] Dhagfipamq0308 [place] [phone]. Chrissy Frazier WBC 11.2 103/ul Critically high 4.0-11.0 [facility] Comment on above: Performed By: #### C BC ####[facility] Lbdwuyoyvd1842 [place] [address]Dr. Chrissy Frazier PROF 14(COMP METB)on 022 Albumin [Mass/Vol] 3.8 g/dL Normal 3.4-5.0 [facility] Comment on above: Performed By: #### C MP ####[facility] Fyifwjtjef2714 [place] [id number]. Chrissy Freddie Albumin/Globulin [Mass ratio] 1.1 {ratio} Normal [facility] Comment on above: Performed By: #### C MP ####[facility] Uproqyygfe2792 [place] [phone]. Chrissy Freddie ALP [Catalytic activity/Vol] 67 U/L Normal 46-116 [facility] Comment on above: Performed By: #### C MP ####[facility] Tqhmfjkaok0369 [place] [address]Dr. Chrissy Freddie ALT [Catalytic activity/Vol] 75 U/L Critically high 16-63 [facility] Comment on above: Performed By: #### C MP ####[facility] Hshvdmjnht3163 [place] [address]Dr. Chrissy Frazier Anion gap [Moles/Vol] 14.3 mmol/L Normal [facility] Comment on above: Performed By: #### C MP ####[facility] Gbkzngyhbg2718 [place] [address]Dr. Chrissy Freddie AST [Catalytic activity/Vol] 40 U/L Critically high 15-37 [facility] Comment on above: Performed By: #### C MP ####[facility] Aamynjgfew6590 [place] [address]Dr. Chrissy Frazier Bilirubin [Mass/Vol] 0.9 mg/dL Normal 0.2-1.0 [facility] Comment on above: Performed By: #### C MP ####[facility] Gafssutvaq7555 [place] [phone]. Chrissy Frazier Calcium [Mass/Vol] 8.4 mg/dL Critically low 8.5-10.1 [facility] Comment on above: Performed By: #### C MP ####[facility] Qmisokxiet6386 [place] [address]Dr. Chrissy Frazier Chloride [Moles/Vol] 104 mmol/L Normal 98-107 [facility] Comment on above: Performed By: #### C MP ####[facility] Sdkzfmliqp3202 [place] [phone]. Chrissy Frazier CO2 [Moles/Vol] 24.1 mmol/L Normal 21.0-32.0 [facility] Comment on above: Performed By: #### C MP ####[facility] Xtugkupdiu6736 [place] [phone]. Chrissy Frazier Creatinine [Mass/Vol] 1.11 mg/dL Normal 0.70-1.30 [facility] Comment on above: Performed By: #### C MP ####[facility] Pcxvfvtvbt2430 [place] [phone]. Chrissy Frazier EGFR-AF SURINAMESE >60 Normal >=60 [facility] Comment on above: Performed By: #### C MP ####[facility] Tonkmcatdy0287 [place] [address]Dr. Chrissy Frazier EGFR-NON AF SURINAMESE >60 Normal >=60 [facility] Comment on above: Performed By: #### C MP ####[facility] Uztxchtjtx[address] [place], [place] [address]Dr. Chrissy Frazier Globulin (S) [Mass/Vol] 3.6 g/dL Normal [facility] Comment on above: Performed By: #### C MP ####[facility] Uisipqrzlf[address] [place], [place] [address]Dr. Chrissy Frazier Glucose [Mass/Vol] 89 mg/dL Normal 74-106 [facility] Comment on above: Performed By: #### C MP ####[facility] Upnkrktnvc2920 [place] [address]Dr. Chrissy Frazier Potassium [Moles/Vol] 3.4 mmol/L Critically low 3.5-5.1 [facility] Comment on above: Performed By: #### C MP ####[facility] Wbmykdtvoz37[address] [place], [place] [address]Dr. Chrissy Freddie Protein [Mass/Vol] 7.4 g/dL Normal 6.4-8.2 [facility] Comment on above: Performed By: #### C MP ####[facility] Hoevebsaxl[address] [place], [place] [address]Dr. Chrissy Frazier Sodium [Moles/Vol] 139 mmol/L Normal 136-145 [facility] Comment on above: Performed By: #### C MP ####[facility] Iewcnhqxqy35[address] [place], [place] [address]Dr. Chrissy Frazier Urea nitrogen [Mass/Vol] 10.0 mg/dL Normal 7.0-18.0 [facility] Comment on above: Performed By: #### C MP ####[facility] Uvucxyyzwq100[address] [place], [place] [address]Dr. Chrissy Frazier Urea nitrogen/Creatinine [Mass ratio] 9.0 mg/mg Normal [facility] Comment on above: Performed By: #### C MP ####[facility] Nhdeoxjryz73[address] [place], [place] [address]Dr. Chrissy Frazier CBC AUTO DIFFon 07-04-2022 BASO # 0.0 103/ul Normal 0.0-0.1 [facility] Comment on above: Performed By: #### C BC ####[facility] Ihtorpimdb[address] [place], [place] [address]Dr. Chrissy Freddie Basophils/100 WBC (Bld) 0.2 % Normal 0.2-2.0 [facility] Comment on above: Performed By: #### C BC ####[facility] Jwovooiahl[address] [place], [place] [address]Dr. Chrissy Frazier EO # 0.0 103/ul Normal 0.0-0.7 [facility] Comment on above: Performed By: #### C BC ####[facility] Qmdbtveeul4369[address] [place], [place] [address]Dr. Chrissy Freddie Eosinophils/100 WBC (Bld) 0.3 % Critically low 0.9-7.0 [facility] Comment on above: Performed By: #### C BC ####[facility] Bivxeddzfc5[address] [place], [place] [address]Dr. Chrissy Frazier Erythrocyte distribution width (RBC) [Ratio] 14.0 % Normal 11.0-15.0 [facility] Comment on above: Performed By: #### C BC ####[facility] Qosbjgoxrn2198 [place] [address]Dr. Chrissy Frazier Hematocrit (Bld) [Volume fraction] 43.2 % Normal 42.0-54.0 [facility] Comment on above: Performed By: #### C BC ####[facility] Uekelxfmxc8907 [place] [address]Dr. Chrissy Frazier Hemoglobin (Bld) [Mass/Vol] 14.6 g/dL Normal 14.0-18.0 [facility] Comment on above: Performed By: #### C BC ####[facility] Ohtzisdsle5108 [place] [address]Dr. Tishrowan Freddie IG # 0.11 10e3/ul Critically high 0.00-0.03 [facility] Comment on above: Performed By: #### C BC ####[facility] Xmqsvqgoem3010 [place] [address]Dr. Chrissy Frazier IG % 0.8 % Critically high 0.0-0.5 [facility] Comment on above: Performed By: #### C BC ####[facility] Jouuowhscn2198 [place] [address]Dr. Chrissy Frazier LYMPH # 2.6 103/ul Normal 1.2-3.8 [facility] Comment on above: Performed By: #### C BC ####[facility] Tycaesaktz0170 [place] [address]Dr. Tishrowan Frazier Lymphocytes/100 WBC (Bld) 18.3 % Critically low 20.5-60.0 [facility] Comment on above: Performed By: #### C BC ####[facility] Ylddpuibmu4579 [place] [address]Dr. Tishrowan Frazier MANUAL DIFF REQ NO Normal [facility] Comment on above: Performed By: #### C BC ####[facility] Hvzqrtmijf[address] [place], [place] [address]Dr. Chrissy Frazier MCH (RBC) [Entitic mass] 28.1 pg Normal 25.9-34.0 [facility] Comment on above: Performed By: #### C BC ####[facility] Kxqnqlohea7946 [place] [phone]. Chrissy Frazier MCHC (RBC) [Mass/Vol] 33.8 g/dL Normal 29.9-35.2 [facility] Comment on above: Performed By: #### C BC ####[facility] Kxncwrkbla3278 [place] [phone]. Chrissy Frazier MCV (RBC) [Entitic vol] 83.2 fL Normal 80.0-94.0 [facility] Comment on above: Performed By: #### C BC ####[facility] Khukvlsvxl8390 [place] [phone]. Chrissy Frazier MONO # 0.7 103/ul Normal 0.3-0.8 [facility] Comment on above: Performed By: #### C BC ####[facility] Wuanexvlap8150 [place] [address]Dr. Tishrowan Frazier Monocytes/100 WBC (Bld) 5.3 % Normal 1.7-12.0 [facility] Comment on above: Performed By: #### C BC ####[facility] Vninibgcld0881 [place] [phone]. Chrissy Frazier NEUT # 10.5 103/ul Critically high 1.4-6.5 [facility] Comment on above: Performed By: #### C BC ####[facility] Fgfoqhghgn4845 [place] [phone]. Chrissy Frazier Neutrophils/100 WBC (Bld) 75.1 % Critically high 43.0-75.0 [facility] Comment on above: Performed By: #### C BC ####[facility] Kbvdctgsmv0506 [place] [phone]. Chrissy Frazier Platelet mean volume (Bld) [Entitic vol] 10.6 fL Normal 9.5-13.5 [facility] Comment on above: Performed By: #### C BC ####[facility] Ozmjiiiemw1280 [place] [phone]. Chrissy Freddie PLT 309 103/ul Normal 150-450 [facility] Comment on above: Performed By: #### C BC ####[facility] Dhhzcnxrso1610 [place] [address]Dr. Chrissy Frazier RBC 5.19 106/ul Normal 4.70-6.10 [facility] Comment on above: Performed By: #### C BC ####[facility] Upmhpgivxb4470 [place] [address]Dr. Chrissy Frazier WBC 14.0 103/ul Critically high 4.0-11.0 [facility] Comment on above: Performed By: #### C BC ####[facility] Ioiqbzflud1824 [place] [address]Dr. Chrissy Frazier PROF 14(COMP METB)on 022 Albumin [Mass/Vol] 4.0 g/dL Normal 3.4-5.0 [facility] Comment on above: Performed By: #### C MP ####[facility] Mtfqhrhlio[address] [place], [place] [address]Dr. Chrissy Frazier Albumin/Globulin [Mass ratio] 1.1 {ratio} Normal [facility] Comment on above: Performed By: #### C MP ####[facility] Spuoggngub2[address] [place], [place] [address]Dr. Chrissy Frazier ALP [Catalytic activity/Vol] 67 U/L Normal 46-116 [facility] Comment on above: Performed By: #### C MP ####[facility] Qwycczbepm64[address] [place], [place] [address]Dr. Chrissy Frazier ALT [Catalytic activity/Vol] 40 U/L Normal 16-63 [facility] Comment on above: Performed By: #### C MP ####[facility] Cuigdnnhvz6[address] [place], [place] [address]Dr. Chrissy Frazier Anion gap [Moles/Vol] 17.7 mmol/L Normal [facility] Comment on above: Performed By: #### C MP ####[facility] [address]ix[address] [place], [place] [address]Dr. Chrissy Frazier AST [Catalytic activity/Vol] 27 U/L Normal 15-37 [facility] Comment on above: Performed By: #### C MP ####[facility] Xqbdawdqft9[address] [place], [place] [address]Dr. Chrissy Frazier Bilirubin [Mass/Vol] 0.8 mg/dL Normal 0.2-1.0 [facility] Comment on above: Performed By: #### C MP ####[facility] Efsxpefdek7[address] [place] [address]Dr. Chrissy Frazier Calcium [Mass/Vol] 8.8 mg/dL Normal 8.5-10.1 [facility] [place] [facility] Comment on above: Performed By: #### C MP ####[facility] Umoibwfdco8304 [place] [address]Dr. Chrissy Frazier Chloride [Moles/Vol] 105 mmol/L Normal 98-107 [facility] Comment on above: Performed By: #### C MP ####[facility] Wpfgydapkm1212 [place] [address]Dr. Chrissy Frazier CO2 [Moles/Vol] 16.5 mmol/L Critically low 21.0-32.0 [facility] Comment on above: Performed By: #### C MP ####[facility] Zpboqvbfeb9[address] [place], [place] [address]Dr. Chrissy Frazier Creatinine [Mass/Vol] 1.02 mg/dL Normal 0.70-1.30 [facility] Comment on above: Performed By: #### C MP ####[facility] Exhivqimli57[address] [place], [place] [address]Dr. Chrissy Frazier EGFR-AF SURINAMESE >60 Normal >=60 [facility] Comment on above: Performed By: #### C MP ####[facility] Piufqttckl450[address] [place] [address]Dr. Chrissy Freddie EGFR-NON AF SURINAMESE >60 Normal >=60 [facility] Comment on above: Performed By: #### C MP ####[facility] Kshjenviwm6[address] [place], [place] [address]Dr. Tishrowan Freddie Globulin (S) [Mass/Vol] 3.7 g/dL Normal [facility] Comment on above: Performed By: #### C MP ####[facility] Bqjtppjxra6244 [place] [address]Dr. Tishrowan Frazier Glucose [Mass/Vol] 106 mg/dL Normal 74-106 [facility] Comment on above: Performed By: #### C MP ####[facility] Qqotbtqbbd0419 [place] [address]Dr. Chrissy Freddie Potassium [Moles/Vol] 3.2 mmol/L Critically low 3.5-5.1 [facility] Comment on above: Performed By: #### C MP ####[facility] Nhswnlsted[address] [place], [place] [address]Dr. Chrissy Freddie Protein [Mass/Vol] 7.7 g/dL Normal 6.4-8.2 [facility] Comment on above: Performed By: #### C MP ####[facility] Fycxlaknme9160[address] [place], [place] [address]Dr. Chrissy Frazier Sodium [Moles/Vol] 136 mmol/L Normal 136-145 [facility] [place] [facility] Comment on above: Performed By: #### C MP ####[facility] Imlrfscnau9310[address] [place], [place] [address]Dr. Chrissy Freddie Urea nitrogen [Mass/Vol] 10.0 mg/dL Normal 7.0-18.0 [facility] Comment on above: Performed By: #### C MP ####[facility] Jsdfzrtxcv354[address] [place], [place] [address]Dr. Tishrowan Freddie Urea nitrogen/Creatinine [Mass ratio] 9.8 mg/mg Normal [facility] Comment on above: Performed By: #### C MP ####[facility] Oykfkehrye6240[address] [place], [place] [address]Dr. Chrissy Freddie CBC AUTO DIFFon 07-03-2022 BASO # 0.1 103/ul Normal 0.0-0.1 [facility] Comment on above: Performed By: #### C BC ####[facility] Proreinkti4978[address] [place], [place] [address]Dr. Chrissy Frazier Basophils/100 WBC (Bld) 0.5 % Normal 0.2-2.0 [facility] Comment on above: Performed By: #### C BC ####[facility] Gziyirctov7860[address] [place], [place] [address]Dr. Chrissy Frazier EO # 0.1 103/ul Normal 0.0-0.7 [facility] Comment on above: Performed By: #### C BC ####[facility] Imxcprsrni0522 [place] [address]Dr. Chrissy Frazier Eosinophils/100 WBC (Bld) 1.3 % Normal 0.9-7.0 [facility] Comment on above: Performed By: #### C BC ####[facility] Akqaggmtzh3683 [place] [address]Dr. Chrissy Frazier Erythrocyte distribution width (RBC) [Ratio] 14.2 % Normal 11.0-15.0 [facility] Comment on above: Performed By: #### C BC ####[facility] Eoruymycmc677[address] [place], [place] [address]Dr. Chrissy Frazier Hematocrit (Bld) [Volume fraction] 41.7 % Critically low 42.0-54.0 [facility] Comment on above: Performed By: #### C BC ####[facility] Cevbllbtow366[address] [place], [place] [address]Dr. Chrissy Frazier Hemoglobin (Bld) [Mass/Vol] 13.6 g/dL Critically low 14.0-18.0 [facility] Comment on above: Performed By: #### C BC ####[facility] Dxbzjfjobu8426[address] [place], [place] [address]Dr. Chrissy Frazier IG # 0.04 10e3/ul Critically high 0.00-0.03 [facility] Comment on above: Performed By: #### C BC ####[facility] Htmuwjviqr1586 [place] [address]Dr. Chrissy Frazier IG % 0.4 % Normal 0.0-0.5 [facility] Comment on above: Performed By: #### C BC ####[facility] Zfjswnpdui2623[address] [place], [place] [address]Dr. Chrissy Frazier LYMPH # 3.5 103/ul Normal 1.2-3.8 [facility] Comment on above: Performed By: #### C BC ####[facility] Ruowpjfdhp567[address] [place], [place] [address]Dr. Chrissy Frazier Lymphocytes/100 WBC (Bld) 33.5 % Normal 20.5-60.0 [facility] Comment on above: Performed By: #### C BC ####[facility] Sasetpuyzm668[address] [place] [address]Dr. Chrissy Frazier MANUAL DIFF REQ NO Normal [facility] Comment on above: Performed By: #### C BC ####[facility] Tpgwiqxwdp4011 [place] [address]Dr. Chrissy Frazier MCH (RBC) [Entitic mass] 27.9 pg Normal 25.9-34.0 [facility] Comment on above: Performed By: #### C BC ####[facility] Jjravhjisj1015 [place] [address]Dr. Chrissy Frazier MCHC (RBC) [Mass/Vol] 32.6 g/dL Normal 29.9-35.2 [facility] Comment on above: Performed By: #### C BC ####[facility] Knhrbswcyv5453 [place] [address]Dr. Chrissy Frazier MCV (RBC) [Entitic vol] 85.6 fL Normal 80.0-94.0 [facility] Comment on above: Performed By: #### C BC ####[facility] Grfsyhchii6396 [place] [address]Dr. Chrissy Frazier MONO # 0.7 103/ul Normal 0.3-0.8 [facility] Comment on above: Performed By: #### C BC ####[facility] Ahefnasjwa1670 [place] [address]Dr. Chrissy Frazier Monocytes/100 WBC (Bld) 6.5 % Normal 1.7-12.0 [facility] Comment on above: Performed By: #### C BC ####[facility] Msvuhnxzko0586 [place] [address]DrNancy Frazier NEUT # 6.1 103/ul Normal 1.4-6.5 [facility] Comment on above: Performed By: #### C BC ####[facility] Idebelkaeg2157[address] [place], [place] [address]Dr. Chrissy Frazier Neutrophils/100 WBC (Bld) 57.8 % Normal 43.0-75.0 [facility] Comment on above: Performed By: #### C BC ####[facility] Xtbsuboovt8833 [place] [address]Dr. Tishrowan Freddie Platelet mean volume (Bld) [Entitic vol] 10.4 fL Normal 9.5-13.5 [facility] Comment on above: Performed By: #### C BC ####[facility] Qpagiufhgu9172 [place] [address]DrNancy Frazier PLT 288 103/ul Normal 150-450 [facility] Comment on above: Performed By: #### C BC ####[facility] Kdxtzavrfb3722 [place] [address]DrNancy Frazier RBC 4.87 106/ul Normal 4.70-6.10 [facility] Comment on above: Performed By: #### C BC ####[facility] Pvxeqtrhhz7648[address] [place], [place] [address]DrNancy Frazier WBC 10.5 103/ul Normal 4.0-11.0 [facility] Comment on above: Performed By: #### C BC ####[facility] Lemlhrywyy277[address] [place], [place] [address]DrNancy Frazier PROF 14(COMP METB)on 022 Albumin [Mass/Vol] 3.6 g/dL Normal 3.4-5.0 [facility] Comment on above: Performed By: #### C MP ####[facility] Wzepgcukjx8211 [place] [address]DrNancy Frazier Albumin/Globulin [Mass ratio] 1.1 {ratio} Normal [facility] Comment on above: Performed By: #### C MP ####[facility] Dfgbmumokx5786 [place] [address]DrNancy Frazier ALP [Catalytic activity/Vol] 58 U/L Normal 46-116 [facility] Comment on above: Performed By: #### C MP ####[facility] Idqueldbqm5454[address] [place], [place] [address]Dr. Yirowan Frazier ALT [Catalytic activity/Vol] 30 U/L Normal 16-63 [facility] Comment on above: Performed By: #### C MP ####[facility] Tdyegkhuor2294 [place] [address]Dr. Tishrowan Freddie Anion gap [Moles/Vol] 14.5 mmol/L Normal [facility] Comment on above: Performed By: #### C MP ####[facility] Fqnveajwxo[address] [place], [place] [address]Dr. Chrissy Freddie AST [Catalytic activity/Vol] 17 U/L Normal 15-37 [facility] Comment on above: Performed By: #### C MP ####[facility] Bfxbwcelcs2676[address] [place], [place] [address]Dr. Chrissy Frazier Bilirubin [Mass/Vol] 0.6 mg/dL Normal 0.2-1.0 [facility] Comment on above: Performed By: #### C MP ####[facility] Qolweyleey3408[address] [place], [place] [address]Dr. Chrissy Frazier Calcium [Mass/Vol] 8.4 mg/dL Critically low 8.5-10.1 [facility] Comment on above: Performed By: #### C MP ####[facility] Prkigtppiq6711[address] [place], [place] [address]Dr. Chrissy Frazier Chloride [Moles/Vol] 106 mmol/L Normal 98-107 [facility] Comment on above: Performed By: #### C MP ####[facility] Llyyedmwen288[address] [place], [place] [address]Dr. Chrissy Frazier CO2 [Moles/Vol] 22.6 mmol/L Normal 21.0-32.0 [facility] Comment on above: Performed By: #### C MP ####[facility] Csubiskbte0918[address] [place], [place] [address]Dr. Chrissy Frazier Creatinine [Mass/Vol] 1.08 mg/dL Normal 0.70-1.30 [facility] Comment on above: Performed By: #### C MP ####[facility] Fjbvfcaenp6644[address] [place], [place] [address]Dr. Chrissy Frazier EGFR-AF SURINAMESE >60 Normal >=60 [facility] Comment on above: Performed By: #### C MP ####[facility] Tkazhgavdg88[address] [place], [place] [address]Bx. Chrissy Frazier EGFR-NON AF SURINAMESE >60 Normal >=60 [facility] Comment on above: Performed By: #### C MP ####[facility] Tkttntsijm6255 [place], [place] [address]Vt. Chrissy Frazier Globulin (S) [Mass/Vol] 3.3 g/dL Normal [facility] Comment on above: Performed By: #### C MP ####[facility] Hipfqvkhjq5857 [place] [id number]. Chrissy Frazier Glucose [Mass/Vol] 94 mg/dL Normal 74-106 [facility] Comment on above: Performed By: #### C MP ####[facility] Ujtgytpwbj7388 [place] [id number]. Chrissy Frazier Potassium [Moles/Vol] 3.1 mmol/L Critically low 3.5-5.1 [facility] Comment on above: Performed By: #### C MP ####[facility] Lqtfrupkdj4879 [place] [id number]. Chrissy Frazier Protein [Mass/Vol] 6.9 g/dL Normal 6.4-8.2 [facility] Comment on above: Performed By: #### C MP ####[facility] Wdaclhgqwt0421 [place] [phone]. Chrissy Frazier Sodium [Moles/Vol] 140 mmol/L Normal 136-145 [facility] Comment on above: Performed By: #### C MP ####[facility] Dwhbcoclms0987 [place] [phone]. Chrissy Frazier Urea nitrogen [Mass/Vol] 10.0 mg/dL Normal 7.0-18.0 [facility] Comment on above: Performed By: #### C MP ####[facility] Xvbejunuxy8389 [place] [id number]. Chrissy Frazier Urea nitrogen/Creatinine [Mass ratio] 9.3 mg/mg Normal [facility] Comment on above: Performed By: #### C MP ####[facility] Njzkvykson7030[address] [place], [place] [address]Dr. Chrissy Frazier CBC AUTO DIFFon 07-02-2022 BASO # 0.0 103/ul Normal 0.0-0.1 [facility] Comment on above: Performed By: #### C BC ####[facility] Smbupqdrxr9284[address] [place], [place] [address]Dr. Chrissy Frazier Basophils/100 WBC (Bld) 0.2 % Normal 0.2-2.0 [facility] Comment on above: Performed By: #### C BC ####[facility] Lsxdmytgwi9756[address] [place], [place] [address]Dr. Chrissy Frazier EO # 0.0 103/ul Normal 0.0-0.7 [facility] Comment on above: Performed By: #### C BC ####[facility] Bqatikwnyb7658[address] [place], [place] [address]Dr. Chrissy Frazier Eosinophils/100 WBC (Bld) 0.0 % Critically low 0.9-7.0 [facility] Comment on above: Performed By: #### C BC ####[facility] Pydktxvcel257[address] [place], [place] [address]Dr. Chrissy Frazier Erythrocyte distribution width (RBC) [Ratio] 14.2 % Normal 11.0-15.0 [facility] Comment on above: Performed By: #### C BC ####[facility] Rwtpxpztyx0914[address] [place], [place] [address]Dr. Chrissy Frazier Hematocrit (Bld) [Volume fraction] 46.2 % Normal 42.0-54.0 [facility] Comment on above: Performed By: #### C BC ####[facility] Jjdoubrbjg7715[address] [place], [place] [address]Dr. Chrissy Frazier Hemoglobin (Bld) [Mass/Vol] 15.2 g/dL Normal 14.0-18.0 [facility] Comment on above: Performed By: #### C BC ####[facility] Nfreqpijbn5589[address] [place], [place] [address]Dr. Chrissy Frazier IG # 0.07 10e3/ul Critically high 0.00-0.03 [facility] Comment on above: Performed By: #### C BC ####[facility] Stoowfqxdv8142 [place] [phone] Chrissy Freddie IG % 0.4 % Normal 0.0-0.5 [facility] Comment on above: Performed By: #### C BC ####[facility] Zkiygpzvms0199 [place] [address]DrNancy Chrissy Freddie LYMPH # 2.8 103/ul Normal 1.2-3.8 [facility] Comment on above: Performed By: #### C BC ####[facility] Hkkqtcpbyy8046[address] [place], [place] [address]DrNancy Chrissy Freddie Lymphocytes/100 WBC (Bld) 16.7 % Critically low 20.5-60.0 [facility] Comment on above: Performed By: #### C BC ####[facility] Ujxoxgnyfm5209[address] [place], [place] [address]DrNancy Chrissy Freddie MANUAL DIFF REQ NO Normal [facility] Comment on above: Performed By: #### C BC ####[facility] Rnwobveebz677[address] [place], [place] [address]DrNancy Chrissy Freddie MCH (RBC) [Entitic mass] 28.3 pg Normal 25.9-34.0 [facility] Comment on above: Performed By: #### C BC ####[facility] Ooqwcasdjz5043 [place] [address]DrNancy Chrissy Freddie MCHC (RBC) [Mass/Vol] 32.9 g/dL Normal 29.9-35.2 [facility] Comment on above: Performed By: #### C BC ####[facility] Tlrbakwcaq4267[address] [place], [place] [address]DrNancy Winstonrowan Freddie MCV (RBC) [Entitic vol] 86.0 fL Normal 80.0-94.0 [facility] Comment on above: Performed By: #### C BC ####[facility] Jvngzybpvl5456[address] [place], [place] [address]DrNancy Frazier MONO # 0.9 103/ul Critically high 0.3-0.8 [facility] Comment on above: Performed By: #### C BC ####[facility] Lpqunqgbmh5960 [place] [phone]. Chrissy Frazier Monocytes/100 WBC (Bld) 5.1 % Normal 1.7-12.0 [facility] Comment on above: Performed By: #### C BC ####[facility] Xdfvvhozzt3726 [place] [phone]. Chrissy Frazier NEUT # 13.2 103/ul Critically high 1.4-6.5 [facility] Comment on above: Performed By: #### C BC ####[facility] Zdqfgkrcpx9153 [place] [address]Dr. Chrissy Frazier Neutrophils/100 WBC (Bld) 77.6 % Critically high 43.0-75.0 [facility] Comment on above: Performed By: #### C BC ####[facility] Hwjmyxaunc41[address] [place], [place] [address]Dr. Chrissy Frazier Platelet mean volume (Bld) [Entitic vol] 11.6 fL Normal 9.5-13.5 [facility] Comment on above: Performed By: #### C BC ####[facility] Gyqlubeaqm0376 [place] [address]Dr. Chrissy Frazier PLT 317 103/ul Normal 150-450 [facility] Comment on above: Performed By: #### C BC ####[facility] Lqcqnpnzjp[address] [place], [place] [address]Dr. Chrissy Frazier RBC 5.37 106/ul Normal 4.70-6.10 [facility] Comment on above: Performed By: #### C BC ####[facility] Vmkwfertjv2625 [place] [phone]. Chrissy Frazier WBC 17.1 103/ul Critically high 4.0-11.0 [facility] Comment on above: Performed By: #### C BC ####[facility] Pwaqhfdoys9657 [place] [phone]. Chrissy Frazier CT ABD/PELV W MARGOTHon 07-02-[address] ABD/PELV W CON Normal [facility] H PYLORI ANTIBODY IGGon 06-21 H. PYLORI IGG ABS 0.13 Index Value Normal 0.00-0.79 [facility] Comment on above: Result Comment: Nega tive <0.80 Equivocal 0.80 - 0.89 Positive >0.89 Performed By: #### H PYLLC ####[facility] Rbvcevvrvl1874 [place] [address]Dr. Chrissy Frazier PROF 14(COMP METB)on 022 Albumin [Mass/Vol] 3.8 g/dL Normal 3.4-5.0 [facility] Comment on above: Performed By: #### C MP ####[facility] Xnizzehbmy9064[address] [place], [place] [address]Dr. Chrissy Frazier Albumin/Globulin [Mass ratio] 1.0 {ratio} Normal [facility] Comment on above: Performed By: #### C MP ####[facility] Bxyluxdxnc3264[address] [place], [place] [address]Dr. Chrissy Frazier ALP [Catalytic activity/Vol] 68 U/L Normal 46-116 [facility] Comment on above: Performed By: #### C MP ####[facility] Zfgfhxzuvw47[address] [place], [place] [address]Dr. Chrissy Frazier ALT [Catalytic activity/Vol] 34 U/L Normal 16-63 [facility] Comment on above: Performed By: #### C MP ####[facility] Vkzxkygona3978[address] [place], [place] [address]Dr. Chrissy Frazier Anion gap [Moles/Vol] 17.9 mmol/L Normal [facility] Comment on above: Performed By: #### C MP ####[facility] Icxjhdpekc6317[address] [place], [place] [address]Dr. Chrissy Frazier AST [Catalytic activity/Vol] 24 U/L Normal 15-37 [facility] Comment on above: Performed By: #### C MP ####[facility] Xapjofkycc1816[address] [place], [place] [address]Dr. Chrissy Frazier Bilirubin [Mass/Vol] 0.6 mg/dL Normal 0.2-1.0 [facility] Comment on above: Performed By: #### C MP ####[facility] Wpbcjlbpvk3065 [place] [address]Dr. Chrissy Frazier Calcium [Mass/Vol] 8.8 mg/dL Normal 8.5-10.1 [facility] Comment on above: Performed By: #### C MP ####[facility] Qjlbyrjdvd1494 [place] [address]Dr. Chrissy Frazier Chloride [Moles/Vol] 105 mmol/L Normal 98-107 [facility] Comment on above: Performed By: #### C MP ####[facility] Pjtflarxud3270[address] [place], [place] [address]Dr. Chrissy Frazier CO2 [Moles/Vol] 18.8 mmol/L Critically low 21.0-32.0 [facility] Comment on above: Performed By: #### C MP ####[facility] Dxmirtorqn360[address] [place], [place] [address]Dr. Chrissy Frazier Creatinine [Mass/Vol] 1.15 mg/dL Normal 0.70-1.30 [facility] Comment on above: Performed By: #### C MP ####[facility] Hasxfvyhhz5299[address] [place], [place] [address]Dr. Chrissy Frazier EGFR-AF SURINAMESE >60 Normal >=60 [facility] Comment on above: Performed By: #### C MP ####[facility] Mvuxyyhmzp4970[address] [place], [place] [address]Dr. Chrissy Freddie EGFR-NON AF SURINAMESE >60 Normal >=60 [facility] Comment on above: Performed By: #### C MP ####[facility] Jqhhfnhblx308[address] [place], [place] [address]Dr. Chrissy Freddie Globulin (S) [Mass/Vol] 3.9 g/dL Normal [facility] Comment on above: Performed By: #### C MP ####[facility] Yvjbhzvxeo217[address] [place], [place] [address]Dr. Chrissy Frazier Glucose [Mass/Vol] 124 mg/dL Critically high 74-106 [facility] Comment on above: Performed By: #### C MP ####[facility] Ivdhixsobc3762 [place] [address]Dr. Chrissy Frazier Potassium [Moles/Vol] 3.7 mmol/L Normal 3.5-5.1 [facility] Comment on above: Performed By: #### C MP ####[facility] Shvicwpbzc2309 [place] [address]Dr. Chrissy Freddie Protein [Mass/Vol] 7.7 g/dL Normal 6.4-8.2 [facility] Comment on above: Performed By: #### C MP ####[facility] Mallozwute344[address] [place], [place] [address]Dr. Tishrowan Frazier Sodium [Moles/Vol] 138 mmol/L Normal 136-145 [facility] Comment on above: Performed By: #### C MP ####[facility] Zlsfsgskez7801[address] [place], [place] [address]Dr. Tishrowan Frazier Urea nitrogen [Mass/Vol] 9.0 mg/dL Normal 7.0-18.0 [facility] Comment on above: Performed By: #### C MP ####[facility] Xcpcedfulp6633[address] [place], [place] [address]Dr. Chrissy Freddie Urea nitrogen/Creatinine [Mass ratio] 7.8 mg/mg Normal [facility] Comment on above: Performed By: #### C MP ####[facility] Ooiwktqzla5016[address] [place], [place] [address]Dr. Chrissy Freddie AMMONIAon 07-01-2022 Ammonia (P) [Moles/Vol] 14 umol/L Normal 11-32 [facility] Comment on above: Performed By: #### A MM ####[facility] Tenogovkup7397[address] [place], [place] [address]Dr. Tishrowan Frazier AMYLASEon 07-01-2022 Amylase [Catalytic activity/Vol] 32 U/L Normal 25-115 [facility] Comment on above: Performed By: #### A MY, PHOS, CMP, LIPA ####[facility] Alqnlfeakl2177 [place] [address]Dr. Tishrowan Frazier CBC AUTO DIFFon 07-01-2022 BASO # 0.1 103/ul Normal 0.0-0.1 [facility] Comment on above: Performed By: #### C BC ####[facility] Hnwvrptrux4805 [place] [address]Dr. Chrissy Frazier Basophils/100 WBC (Bld) 0.4 % Normal 0.2-2.0 [facility] Comment on above: Performed By: #### C BC ####[facility] Xymjaweoit7067[address] [place], [place] [address]Dr. Chrissy Frazier EO # 0.2 103/ul Normal 0.0-0.7 [facility] Comment on above: Performed By: #### C BC ####[facility] Peaefsjxnm704[address] [place], [place] [address]Dr. Tishrowan Freddie Eosinophils/100 WBC (Bld) 0.9 % Normal 0.9-7.0 [facility] Comment on above: Performed By: #### C BC ####[facility] Czrxxuzzqe344[address] [place], [place] [address]Dr. Chrissy Frazier Erythrocyte distribution width (RBC) [Ratio] 13.8 % Normal 11.0-15.0 [facility] Comment on above: Performed By: #### C BC ####[facility] Czyjtjmwjs7425[address] [place], [place] [address]Dr. Tishrowan Frazier Hematocrit (Bld) [Volume fraction] 46.3 % Normal 42.0-54.0 [facility] Comment on above: Performed By: #### C BC ####[facility] Jcmjgbwkck969[address] [place], [place] [address]Dr. Tishrowan Frazier Hemoglobin (Bld) [Mass/Vol] 15.4 g/dL Normal 14.0-18.0 [facility] Comment on above: Performed By: #### C BC ####[facility] Wsvbrzwfkj406[address] [place], [place] [address]Dr. Chrissy Frazier IG # 0.05 10e3/ul Critically high 0.00-0.03 [facility] Comment on above: Performed By: #### C BC ####[facility] Ttsyuxgqjg3011 [place] [address]Dr. Chrissy Frazier IG % 0.3 % Normal 0.0-0.5 [facility] Comment on above: Performed By: #### C BC ####[facility] Zklpxnequc5840[address] [place], [place] [address]Dr. Chrissy Frazier LYMPH # 2.0 103/ul Normal 1.2-3.8 [facility] Comment on above: Performed By: #### C BC ####[facility] Hbnprugrwa2748[address] [place], [place] [address]Dr. Chrissy Frazier Lymphocytes/100 WBC (Bld) 12.9 % Critically low 20.5-60.0 [facility] Comment on above: Performed By: #### C BC ####[facility] Kqnecvcwhg7567[address] [place], [place] [address]DrNancy Frazier MANUAL DIFF REQ NO Normal [facility] Comment on above: Performed By: #### C BC ####[facility] Gzvufziiad564[address] [place], [place] [address]Dr. Tishrowan Frazier MCH (RBC) [Entitic mass] 28.6 pg Normal 25.9-34.0 [facility] Comment on above: Performed By: #### C BC ####[facility] Ltrmomdypj076[address] [place], [place] [address]Dr. Chrissy Freddie MCHC (RBC) [Mass/Vol] 33.3 g/dL Normal 29.9-35.2 [facility] Comment on above: Performed By: #### C BC ####[facility] Yymouthppp7227[address] [place], [place] [address]DrNancy Frazier MCV (RBC) [Entitic vol] 86.1 fL Normal 80.0-94.0 [facility] Comment on above: Performed By: #### C BC ####[facility] Pmojuemwmf724[address] [place], [place] [address]DrNancy Frazier MONO # 0.5 103/ul Normal 0.3-0.8 [facility] Comment on above: Performed By: #### C BC ####[facility] Ujblffbesh128[address] [place], [place] [address]Dr. Chrissy Frazier Monocytes/100 WBC (Bld) 3.0 % Normal 1.7-12.0 [facility] Comment on above: Performed By: #### C BC ####[facility] Tbgksvkpjk0855 [place] [address]Dr. Chrissy Frazier NEUT # 13.0 103/ul Critically high 1.4-6.5 [facility] Comment on above: Performed By: #### C BC ####[facility] Amrxrkrqiu0461 [place] [address]Dr. Chrissy Frazier Neutrophils/100 WBC (Bld) 82.5 % Critically high 43.0-75.0 [facility] Comment on above: Performed By: #### C BC ####[facility] Bybusvzlcd8137[address] [place], [place] [address]Dr. Chrissy Frazier Platelet mean volume (Bld) [Entitic vol] 10.0 fL Normal 9.5-13.5 [facility] Comment on above: Performed By: #### C BC ####[facility] Bunyjkxgsb01[address] [place], [place] [address]Dr. Chrissy Frazier PLT 370 103/ul Normal 150-450 [facility] Comment on above: Performed By: #### C BC ####[facility] Iqdbevfetj[address] [place], [place] [address]Dr. Chrissy Frazier RBC 5.38 106/ul Normal 4.70-6.10 [facility] Comment on above: Performed By: #### C BC ####[facility] Kzraziuijy[address] [place], [place] [address]Dr. Chrissy Frazier WBC 15.8 103/ul Critically high 4.0-11.0 [facility] Comment on above: Performed By: #### C BC ####[facility] Nyscmigijp60[address] [place] [address]Dr. Chrissy Frazier CULTURE URINEon 07-01-2022 CULTURE URINE Culture Observations: No growth Normal [facility] Comment on above: Performed By: #### U RCX ####[facility] Bgkydesxss[address] [place], [place] [address]Dr. Chrissy Frazier Covid-19 PCR (CVDTB)on 06-21 SARS-CoV-2 (COVID-19) RNA RHIANNON+probe Ql (Unsp spec) Not detected Normal NOT DETECTED [facility] Comment on above: Result Comment: When diagnostic [...] for this test is supported by the [place] Supervisor of Health and Human Service's declaration that [...] be used). Performed By: #### C VDTBH ####[facility] Mwpnwqorij0542 [place] [address]Dr. Chrissy Freddie DRUG SCREEN RAPID (URINE)on 07-01-2022 AMP Negative Normal NEGATIVE [facility] Comment on above: Performed By: #### D REYES UAMIC ####[facility] Hpzhzvornm20[address] [place] [id number]. Chrissy Frazier BAR Negative Normal NEGATIVE [facility] Comment on above: Performed By: #### D CHAYAD, UAMIC ####[facility] Czpkeimnom5[address] [place] [id number]. Chrissy Frazier BUP Negative Normal NEGATIVE [facility] Comment on above: Performed By: #### D REYES UAMIC ####[facility] Pdqwfimksr64[address] [place] [id number]. Tishrowan Frazier BZO Negative Normal NEGATIVE [facility] Comment on above: Performed By: #### D REYES UAMIC ####[facility] Ddcuagxevt4228 [place] [id number]. Chrissy Frazier LAUREN Negative Normal NEGATIVE [facility] Comment on above: Performed By: #### Amelie CHAMBERS UAMIC ####[facility] Pulrsbxvkp[address] [place], [place] [address]Dr. Chrissy Frazier CUT-OFFS SEE BELOW Normal [facility] Comment on above: Result Comment: AMP (Amphetamine): 500ng/mL, BAR (Barbituates): 200 ng/mL, BZO (Benzodiazepines): 150 ng/mL, BUP (Buprenorphine): 10 ng/mL, LAUREN (Cocaine): 150 ng/mL, mAMP (Methamphetamine): 500 ng/mL, MTD (Methadone): 200 ng/mL, OPI (Opiates): 100 ng/mL, OXY (Oxycodone): 100 ng/mL, PCP (Phencyclidine): 25 ng/mL, PPX (Propoxyphene): 300 ng/mL, THC (Cannabinoids): 50 ng/mL, TCA (Trycyclic Antidepressants): 300 ng/mL Performed By: #### Amelie CHAMBERS UAMIC ####[facility] F[address]ccwbuuw[address] [place], [place] [address]Dr. Chrissy Frazier DRUG CUT HEADER DRUG CLASS TEST SYSTEM CUT-OFF CONCENTRATIONS ARE FOLLOWS: Normal [facility] Comment on above: Performed By: #### Amelie CHAMBERS UAMIC ####[facility] Uoewfuipjz[address] [place], [place] [address]Dr. Chrissy Frazier mAMP Negative Normal NEGATIVE [facility] Comment on above: Performed By: #### Amelie CHAMBERS UAMIC ####[facility] Iytmgqngvw[address] [place], [place] [address]Dr. Chrissy Frazier MTD Negative Normal NEGATIVE [facility] Comment on above: Performed By: #### Amelie CHAMBERS UAMIC ####[facility] Enzatyhdvc2[address] [place], [place] [address]Dr. Chrissy Frazier OPI Negative Normal NEGATIVE [facility] Comment on above: Performed By: #### Amelie CHAMBERS UAMIC ####[facility] Lhsjabsshs[address] [place], [place] [address]Dr. Chrissy Frazier OXY Negative Normal NEGATIVE [facility] Comment on above: Performed By: #### D REYES, UAMIC ####[facility] Ogpqjxvtss10[address] [place] [address]Dr. Chrissy Frazier PCP Negative Normal NEGATIVE [facility] Comment on above: Performed By: #### D REYES, UAMIC ####[facility] Navjyqnndn8473 [place] [address]Dr. Chrissy Frazier PPX Negative Normal NEGATIVE [facility] Comment on above: Performed By: #### D REYES, UAMIC ####[facility] Jjrvdgfrxr0351 [place] [address]Dr. Chrissy Frazier TCA Negative Normal NEGATIVE [facility] Comment on above: Performed By: #### D REYES UAMIC ####[facility] Yfxmatxlrb[address] [place], [place] [address]Dr. Chrissy Frazier THC Positive Abnormal NEGATIVE [facility] Comment on above: Performed By: #### D REYES UAMIC ####[facility] Gzzalcsfif[address] [place], [place] [address]Dr. Chrissy Frazier LACTATE/LACTIC ACIDon 2021 Lactate [Moles/Vol] 4.4 mmol/L Critically high 0.4-1.9 [facility] Comment on above: Performed By: #### L ACT ####[facility] Tszyqcmqca[address] [place], [place] [address]Dr. Chrissy Frazier LIPASEon 07-01-2022 Lipase [Catalytic activity/Vol] 57.0 U/L Critically low 73.0-393.0 [facility] Comment on above: Performed By: #### A MY, PHOS, CMP, LIPA ####[facility] Ochmpyjkfz[address] [place], [place] [address]Dr. Chrissy Frazier PHOSPHORUSon 07-01-2022 Phosphate [Mass/Vol] 1.4 mg/dL Critically low 2.6-4.7 [facility] Comment on above: Performed By: #### A MY, PHOS, CMP, LIPA ####[facility] Ocepifyuep[address] [place], [place] [address]Dr. Chrissy Frazier PROF 14(COMP METB)on 022 Albumin [Mass/Vol] 4.2 g/dL Normal 3.4-5.0 [facility] [place] [facility] Comment on above: Performed By: #### A MY, PHOS, CMP, LIPA ####[facility] Upftduffor8[address] [place] [address]Dr. Chrissy Frazier Albumin/Globulin [Mass ratio] 1.1 {ratio} Normal [facility] Comment on above: Performed By: #### A MY, PHOS, CMP, LIPA ####[facility] Buwodsbjij4387 [place] [address]Dr. Chrissy Frazier ALP [Catalytic activity/Vol] 73 U/L Normal 46-116 [facility] Comment on above: Performed By: #### A MY, PHOS, CMP, LIPA ####[facility] Zmaxejpgac9838 [place] [address]Dr. Chrissy Frazier ALT [Catalytic activity/Vol] 43 U/L Normal 16-63 [facility] Comment on above: Performed By: #### A MY, PHOS, CMP, LIPA ####[facility] Nodtpqvoqx3195 [place] [address]Dr. Chrissy Frazier Anion gap [Moles/Vol] 19.0 mmol/L Normal [facility] Comment on above: Performed By: #### A MY, PHOS, CMP, LIPA ####[facility] Pwhhywigtl9351 [place] [address]Dr. Chrissy Frazier AST [Catalytic activity/Vol] 21 U/L Normal 15-37 [facility] Comment on above: Performed By: #### A MY, PHOS, CMP, LIPA ####[facility] Ygqcytjqgy9892 [place] [address]Dr. Chrissy Frazier Bilirubin [Mass/Vol] 0.5 mg/dL Normal 0.2-1.0 [facility] Comment on above: Performed By: #### A MY, PHOS, CMP, LIPA ####[facility] Ezblingwjq1820 [place] [address]Dr. Chrissy Frazier Calcium [Mass/Vol] 9.3 mg/dL Normal 8.5-10.1 [facility] [place] [facility] Comment on above: Performed By: #### A MY, PHOS, CMP, LIPA ####[facility] Vaolyklvua5251 [place] [address]Dr. Chrissy Frazier Chloride [Moles/Vol] 103 mmol/L Normal 98-107 [facility] Comment on above: Performed By: #### A MY, PHOS, CMP, LIPA ####[facility] Agfpsszner4728 [place] [address]Dr. Chrissy Frazier CO2 [Moles/Vol] 21.1 mmol/L Normal 21.0-32.0 [facility] Comment on above: Performed By: #### A MY, PHOS, CMP, LIPA ####[facility] Qupnkoxnam[address] [place], [place] [address]Dr. Chrissy Frazier Creatinine [Mass/Vol] 1.44 mg/dL Critically high 0.70-1.30 [facility] Comment on above: Performed By: #### A MY, PHOS, CMP, LIPA ####[facility] Aphhbykity[address] [place], [place] [address]Dr. Chrissy Frazier EGFR-AF SURINAMESE >60 Normal >=60 [facility] Comment on above: Performed By: #### A MY, PHOS, CMP, LIPA ####[facility] Osbvmtibmo0087 [place] [address]Dr. Chrissy Frazier EGFR-NON AF SURINAMESE 57 mL/min/1.73m2 Critically low >=60 [facility] Comment on above: Performed By: #### A MY, PHOS, CMP, LIPA ####[facility] Ncldzqnelj7365 [place] [address]Dr. Chrissy Frazier Globulin (S) [Mass/Vol] 3.9 g/dL Normal [facility] Comment on above: Performed By: #### A MY, PHOS, CMP, LIPA ####[facility] Gvordvpiuk88[address] [place] [address]Dr. Chrissy Frazier Glucose [Mass/Vol] 148 mg/dL Critically high 74-106 [facility] Comment on above: Performed By: #### A MY, PHOS, CMP, LIPA ####[facility] Noozsjswbh9944 [place] [address]Dr. Chrissy Frazier Potassium [Moles/Vol] 3.1 mmol/L Critically low 3.5-5.1 [facility] Comment on above: Performed By: #### A MY, PHOS, CMP, LIPA ####[facility] Hpeqgibrdf1363 [place] [address]Dr. Chrissy Frazier Protein [Mass/Vol] 8.1 g/dL Normal 6.4-8.2 [facility] Comment on above: Performed By: #### A MY, PHOS, CMP, LIPA ####[facility] Imibimzvry2007 [place] [address]Dr. Chrissy Frazier Sodium [Moles/Vol] 140 mmol/L Normal 136-145 [facility] Comment on above: Performed By: #### A MY, PHOS, CMP, LIPA ####[facility] Pobnwpqybr9580 [place] [address]Dr. Chrissy Frazier Urea nitrogen [Mass/Vol] 10.0 mg/dL Normal 7.0-18.0 [facility] Comment on above: Performed By: #### A MY, PHOS, CMP, LIPA ####[facility] Vwktksnfrd2881 [place] [address]Dr. Chrissy Frazier Urea nitrogen/Creatinine [Mass ratio] 6.9 mg/mg Normal [facility] Comment on above: Performed By: #### A MY, PHOS, CMP, LIPA ####[facility] Crszaqvnrp8191 [place] [address]Dr. Chrissy Freddie UA RANDOM W/MICROSCOPICon BACTERIA TRACE Abnormal NONE SEEN [facility] Comment on above: Performed By: #### D REYES UAMIC ####[facility] Iuckddkdgy2504 [place] [address]Dr. Tishrowan Freddie Bilirubin Ql (U) Negative Normal NEGATIVE [facility] Comment on above: Performed By: #### D REYES UAMIC ####[facility] Pbwnclvorv2885 [place] [address]Dr. Chrissy Frazier CAST NONE SEEN Normal NONE SEEN [facility] Comment on above: Performed By: #### Amelie CHAMBERS UAMIC ####[facility] Mktqmxqmlq4[address] [place], [place] [address]Dr. Chrissy Frazier Clarity (U) CLEAR Normal CLEAR [facility] Comment on above: Performed By: #### Amelie CHAMBERS UAMIC ####[facility] Baafksgdec0756 [place] [address]Dr. Chrissy Frazier Color (U) YELLOW Normal YELLOW [facility] Comment on above: Performed By: #### Amelie CHAMBERS UAMIC ####[facility] Yijibbklgt14[address] [place], [place] [address]Dr. Chrissy Frazier Crystals LM Nom (Urine sed) NONE SEEN Normal NONE SEEN [facility] Comment on above: Performed By: #### Amelie CHAMBERS UAMIC ####[facility] Wnryclyauq[address] [place], [place] [address]Dr. Chrissy Frazier Epithelial cells LM Ql (Urine sed) RARE Normal NONE SEEN /RARE [facility] Comment on above: Performed By: #### Amelie CHAMBERS UAMIC ####[facility] Zyejhjftvr[address] [place], [place] [address]Dr. Chrissy Frazier Glucose Ql (U) Negative Normal NEGATIVE [facility] Comment on above: Performed By: #### Amelie CHAMBERS UAMIC ####[facility] Osswybwqct[address] [place], [place] [address]Dr. Chrissy Frazier Hemoglobin Ql (U) Negative Normal NEGATIVE [facility] Comment on above: Performed By: #### Amelie CHAMBERS UAMIC ####[facility] Fziqoftfxp8499[address] [place], [place] [address]Dr. Chrissy Frazier Ketones Ql (U) 40 mg/dl Abnormal NEGATIVE [facility] Comment on above: Performed By: #### Amelie CHAMBERS UAMIC ####[facility] Luhkxwdkua6[address] [place], [place] [address]Dr. Chrissy Frazier LEUKOCYTES Negative Normal NEGATIVE [facility] Comment on above: Performed By: #### Amelie CHAMBERS, UAMIC ####[facility] Hmmvxvrskk2884 [place] [address]Dr. Chrissy Frazier MUCOUS MODERATE Abnormal NONE SEEN [facility] Comment on above: Performed By: #### Amelie CHAMBERS, UAMIC ####[facility] Rvijnsxxnk8386 [place] [address]Dr. Chrissy Frazier Nitrite Ql (U) Negative Normal NEGATIVE [facility] Comment on above: Performed By: #### Amelie CHAMBERS UAMIC ####[facility] Zpjasjqtrr27[address] [place], [place] [address]Dr. Chrissy Frazier pH (U) 6.0 [pH] Normal 5-9 [facility] Comment on above: Performed By: #### Amelie CHAMBERS UAMIC ####[facility] Xtzefkjrby8[address] [place], [place] [address]Dr. Chrissy Frazier RBC 0-2 Normal 0-2 [facility] Comment on above: Performed By: #### Amelie CHAMBERS UAMIC ####[facility] Nsfxlxfjea8[address] [place], [place] [address]Dr. Chrissy Frazier SPEC GRAVITY 1.020 Normal 1.005-<=1.025 [facility] Comment on above: Performed By: #### Amelie CHAMBERS UAMIC ####[facility] Sualtfiowp[address] [place], [place] [address]Dr. Chrissy Frazier UA PROTEIN Negative Normal NEGATIVE/ TRACE [facility] Comment on above: Performed By: #### Amelie CHAMBERS UAMIC ####[facility] Kboixrgtiu[address] [place], [place] [address]Dr. Chrissy Frazier Urobilinogen Qn (U) 0.2 {Estrellita'U}/dL Normal 0.2 - 1. 0 [facility] Comment on above: Performed By: #### Amelie CHAMBERS UAMIC ####[facility] Avqpyccupx9[address] [place], [place] [address]Dr. Chrissy Frazier WBC 0-2 Abnormal NONE SEEN [facility] Comment on above: Performed By: #### D RUGRPD, UAMIC ####[facility] Lgrmkpznmb4[address] [place], [place] [address]Mm. Chrissy Frazier XR ABD FLAT UP_PA Enoch 07-01 XR ABD FLAT UP_PA CH Normal [facility] Covid-19 PCR (CVDTB)on SARS-CoV-2 (COVID-19) RNA RHIANNON+probe Ql (Unsp spec) Not detected Normal NOT DETECTED [facility] Comment on above: Result Comment: When diagnostic [...] for this test is supported by the [place] of Health and Human Service's declaration that [...] be used). Performed By: #### C [facility] ####[facility] Xdstpygefe1659 [place], [place] [address]Bh. Chrissy Frazier SYMPTOMATIC COVID-19 ANTIGEN on 04-23-2022 EUA Statement SEE BELOW Normal [facility] Comment on above: Result Comment: This [...] revoked sooner. Performed By: #### C VDAGS ####[facility] Acdcycmpnl7546 [place] [address]Dr. Chrissy Frazier SARS-CoV-2 (COVID-19) RNA RHIANNON+probe Ql (Unsp spec) Negative Normal NEGATIVE [facility] Comment on above: Performed By: #### C VDAGS ####[facility] Ajlwhvnbnz[address] [place], [place] [address]Dr. Chrissy Frazier AMYLASEon 04-04-2022 Amylase [Catalytic activity/Vol] 40 U/L Normal 25-115 [facility] Comment on above: Performed By: #### C MP, TERRENCE, LIPA ####[facility] Zuwavijeub[address] [place], [place] [address]Dr. Chrissy Frazier CBC AUTO DIFFon 04-04-2022 BASO # 0.1 103/ul Normal 0.0-0.1 [facility] Comment on above: Performed By: #### C BC ####[facility] Mktdbiptrn[address] [place], [place] [address]Dr. Chrissy Frazier Basophils/100 WBC (Bld) 0.4 % Normal 0.2-2.0 [facility] Comment on above: Performed By: #### C BC ####[facility] Pmopupyvuj[address] [place], [place] [address]Dr. Chrissy Frazier EO # 0.1 103/ul Normal 0.0-0.7 [facility] Comment on above: Performed By: #### C BC ####[facility] Ecgwcnvpmy4[address] [place], [place] [address]Dr. Chrissy Frazier Eosinophils/100 WBC (Bld) 0.6 % Critically low 0.9-7.0 [facility] Comment on above: Performed By: #### C BC ####[facility] Mfdoroadyo[address] [place], [place] [address]Dr. Chrissy Frazier Erythrocyte distribution width (RBC) [Ratio] 13.2 % Normal 11.0-15.0 [facility] Comment on above: Performed By: #### C BC ####[facility] Wdonbytyar8398 [place] [address]Dr. Chrissy Frazier Hematocrit (Bld) [Volume fraction] 48.3 % Normal 42.0-54.0 [facility] Comment on above: Performed By: #### C BC ####[facility] Xnjouxaabn6183 [place] [address]Dr. Chrissy Frazier Hemoglobin (Bld) [Mass/Vol] 16.1 g/dL Normal 14.0-18.0 [facility] Comment on above: Performed By: #### C BC ####[facility] Hzzpysahpv[address] [place], [place] [address]Dr. Chrissy Frazier IG # 0.12 10e3/ul Critically high 0.00-0.03 [facility] Comment on above: Performed By: #### C BC ####[facility] Khfaxmyixp1728[address] [place], [place] [address]Dr. Chrissy Frazier IG % 0.9 % Critically high 0.0-0.5 [facility] Comment on above: Performed By: #### C BC ####[facility] Upxaqphcqn[address] [place], [place] [address]Dr. Chrissy Frazier LYMPH # 3.0 103/ul Normal 1.2-3.8 [facility] Comment on above: Performed By: #### C BC ####[facility] Zlcvoxnizz4433[address] [place], [place] [address]Dr. Chrissy Frazier Lymphocytes/100 WBC (Bld) 22.3 % Normal 20.5-60.0 [facility] Comment on above: Performed By: #### C BC ####[facility] Oucvkciwwy7[address] [place], [place] [address]DrNancy Frazier MANUAL DIFF REQ NO Normal [facility] Comment on above: Performed By: #### C BC ####[facility] Naaxwozyqu04[address] [place], [place] [address]DrNancy Frazier MCH (RBC) [Entitic mass] 28.6 pg Normal 25.9-34.0 [facility] Comment on above: Performed By: #### C BC ####[facility] Vrxnokopzr3916 [place] [id number]. Chrissy Freddie MCHC (RBC) [Mass/Vol] 33.3 g/dL Normal 29.9-35.2 [facility] Comment on above: Performed By: #### C BC ####[facility] Xqduukexsw7267 [place] [id number]. Tishrowan Freddie MCV (RBC) [Entitic vol] 85.9 fL Normal 80.0-94.0 [facility] Comment on above: Performed By: #### C BC ####[facility] Yvrwladrie62[address] [place], [place] [address]Dr. Chrissy Frazier MONO # 0.8 103/ul Normal 0.3-0.8 [facility] Comment on above: Performed By: #### C BC ####[facility] Zoyvvbjhvj02[address] [place], [place] [address]Dr. Chrissy Frazier Monocytes/100 WBC (Bld) 5.7 % Normal 1.7-12.0 [facility] Comment on above: Performed By: #### C BC ####[facility] Hrxhqinmkc[address] [place], [place] [address]Dr. Chrissy Frazier NEUT # 9.3 103/ul Critically high 1.4-6.5 [facility] Comment on above: Performed By: #### C BC ####[facility] Rgqztcqjim[address] [place], [place] [address]Dr. Chrissy Frazier Neutrophils/100 WBC (Bld) 70.1 % Normal 43.0-75.0 [facility] Comment on above: Performed By: #### C BC ####[facility] Dgmvaqhlgx[address] [place], [place] [address]DrNancy Frazier Platelet mean volume (Bld) [Entitic vol] 10.3 fL Normal 9.5-13.5 [facility] Comment on above: Performed By: #### C BC ####[facility] Jbodolvhfn7[address] [place], [place] [address]Dr. Chrissy Frazier PLT 461 103/ul Critically high 150-450 [facility] Comment on above: Performed By: #### C BC ####[facility] Qpotmdhwll2445 [place] [address]Dr. Tishrowan Freddie RBC 5.62 106/ul Normal 4.70-6.10 [facility] Comment on above: Performed By: #### C BC ####[facility] Nxoargdrra9011 [place] [id number]. Chrissy Frazier WBC 13.3 103/ul Critically high 4.0-11.0 [facility] Comment on above: Performed By: #### C BC ####[facility] Ostdiwuufu2951 [place] [address]Dr. Chrissy Frazier LIPASEon 04-04-2022 Lipase [Catalytic activity/Vol] 118.0 U/L Normal 73.0-393.0 [facility] Comment on above: Performed By: #### C MP, TERRENCE, LIPA ####[facility] Whtmcmdshl8036 [place] [address]Dr. Chrissy Frazier PROF 14(COMP METB)on 022 Albumin [Mass/Vol] 4.3 g/dL Normal 3.4-5.0 [facility] [place] [facility] Comment on above: Performed By: #### C MP, TERRENCE, LIPA ####[facility] Opgooacslm5539 [place] [address]Dr. Chrissy Frazier Albumin/Globulin [Mass ratio] 1.0 {ratio} Normal [facility] Comment on above: Performed By: #### C MP, TERRENCE, LIPA ####[facility] Wqykthvktz1217 [place] [address]Dr. Chrissy Frazier ALP [Catalytic activity/Vol] 84 U/L Normal 46-116 [facility] Comment on above: Performed By: #### C MP, TERRENCE, LIPA ####[facility] Huqllvvdui7874 [place] [address]Dr. Chrissy Frazier ALT [Catalytic activity/Vol] 81 U/L Critically high 16-63 [facility] Comment on above: Performed By: #### C MP, TERRENCE, LIPA ####[facility] Sbojkilxud9622 [place] [id number]. Chrissy Frazier Anion gap [Moles/Vol] 17.9 mmol/L Normal [facility] Comment on above: Performed By: #### C MP, TERRENCE, LIPA ####[facility] Yisxgurwwr1588 [place] [address]Dr. Chrissy Frazier AST [Catalytic activity/Vol] 25 U/L Normal 15-37 [facility] Comment on above: Performed By: #### C MP, TERRENCE, LIPA ####[facility] Khstbbsgkd8313 [place] [address]Dr. Chrissy Frazier Bilirubin [Mass/Vol] 0.5 mg/dL Normal 0.2-1.0 [facility] Comment on above: Performed By: #### C MP, TERRENCE, LIPA ####[facility] Fqafstojhf4205 [place] [address]Dr. Chrissy Frazier Calcium [Mass/Vol] 9.6 mg/dL Normal 8.5-10.1 [facility] [place] [facility] Comment on above: Performed By: #### C MP, TERRENCE, LIPA ####[facility] Dgdxwwdruq1783 [place] [address]Dr. Chrissy Frazier Chloride [Moles/Vol] 101 mmol/L Normal 98-107 [facility] Comment on above: Performed By: #### C MP, TERRENCE, LIPA ####[facility] Fqaoysvkls5138 [place] [address]Dr. Chrissy Frazier CO2 [Moles/Vol] 18.6 mmol/L Critically low 21.0-32.0 [facility] Comment on above: Performed By: #### C MP, TERRENCE, LIPA ####[facility] Juyiglemps6094 [place] [address]Dr. Chrissy Frazier Creatinine [Mass/Vol] 1.39 mg/dL Critically high 0.70-1.30 [facility] Comment on above: Performed By: #### C MP, TERRENCE, LIPA ####[facility] Mkdaqukyes2867 [place] [address]Dr. Chrissy Frazier EGFR-AF SURINAMESE >60 Normal >=60 [facility] Comment on above: Performed By: #### C MP, TERRENCE, LIPA ####[facility] Spduvydnxs4870 [place] [address]Dr. Chrissy Frazier EGFR-NON AF SURINAMESE 59 mL/min/1.73m2 Critically low >=60 [facility] Comment on above: Performed By: #### C MP, TERRENCE, LIPA ####[facility] Ueeqiuqjid8070 [place] [address]Dr. Chrissy Frazier Globulin (S) [Mass/Vol] 4.3 g/dL Normal [facility] Comment on above: Performed By: #### C MP, TERRENCE, LIPA ####[facility] Siqymcvufc6273 [place] [address]Dr. Chrissy Frazier Glucose [Mass/Vol] 132 mg/dL Critically high 74-106 [facility] Comment on above: Performed By: #### C MP, TERRENCE, LIPA ####[facility] Ofqxfuedzd[address] [place], [place] [address]Dr. Chrissy Frazier Potassium [Moles/Vol] 3.5 mmol/L Normal 3.5-5.1 [facility] Comment on above: Performed By: #### C MP, TERRENCE, LIPA ####[facility] Vezprdemzo[address] [place], [place] [address]Dr. Chrissy Frazier Protein [Mass/Vol] 8.6 g/dL Critically high 6.4-8.2 [facility] Comment on above: Performed By: #### C MP, TERRENCE, LIPA ####[facility] Fglfryifqx5441 [place] [address]Dr. Chrissy Frazier Sodium [Moles/Vol] 134 mmol/L Critically low 136-145 [facility] Comment on above: Performed By: #### C MP, TERRENCE, LIPA ####[facility] Vubtfvfhch1860 [place] [address]Dr. Chrissy Frazier Urea nitrogen [Mass/Vol] 8.0 mg/dL Normal 7.0-18.0 [facility] Comment on above: Performed By: #### C MP, TERRENCE, LIPA ####[facility] Uiibztwnzz1542 [place] [address]Dr. Chrissy Frazier Urea nitrogen/Creatinine [Mass ratio] 5.8 mg/mg Normal [facility] Comment on above: Performed By: #### C TERRENCE ADAIR LIPA ####[facility] Fvsikeuhbh8546 [place] [address]Dr. Chrissy Frazier XR ABD FLAT UP_PA Enoch 04-04 XR ABD FLAT UP_PA CH Normal [facility] AMMONIAon 03-31-2022 Ammonia (P) [Moles/Vol] 19 umol/L Normal 11-32 [facility] Comment on above: Performed By: #### A MM ####[facility] Jqsffamoib[address] [place], [place] [address]Dr. Chrissy Freddie CBC AUTO DIFFon 03-31-2022 BASO # 0.1 103/ul Normal 0.0-0.1 [facility] Comment on above: Performed By: #### C BC ####[facility] [address]tdfrzznv[address] [place], [place] [address]Dr. Chrissy Freddie Basophils/100 WBC (Bld) 0.5 % Normal 0.2-2.0 [facility] Comment on above: Performed By: #### C BC ####[facility] Okhdzqcbvg5[address] [place], [place] [address]Dr. Chrissy Frazier EO # 0.2 103/ul Normal 0.0-0.7 [facility] Comment on above: Performed By: #### C BC ####[facility] Slmbarjywi6[address] [place], [place] [address]Dr. Tishrowan Frazier Eosinophils/100 WBC (Bld) 1.6 % Normal 0.9-7.0 [facility] Comment on above: Performed By: #### C BC ####[facility] Ckotkhlogv[address] [place], [place] [address]Dr. Chrissy Freddie Erythrocyte distribution width (RBC) [Ratio] 13.2 % Normal 11.0-15.0 [facility] Comment on above: Performed By: #### C BC ####[facility] [address]lo[address] [place], [place] [address]Dr. Chrissy Frazier Hematocrit (Bld) [Volume fraction] 42.1 % Normal 42.0-54.0 [facility] Comment on above: Performed By: #### C BC ####[facility] Jkqkqicihc[address] [place] [address]Dr. Chrissy Frazier Hemoglobin (Bld) [Mass/Vol] 14.3 g/dL Normal 14.0-18.0 [facility] Comment on above: Performed By: #### C BC ####[facility] Hyiywnogzz11[address] [place] [address]Dr. Chrissy Frazier IG # 0.05 10e3/ul Critically high 0.00-0.03 [facility] Comment on above: Performed By: #### C BC ####[facility] Mmuwcglgnp5361 [place] [address]Dr. Chrissy Frazier IG % 0.5 % Normal 0.0-0.5 [facility] Comment on above: Performed By: #### C BC ####[facility] Mqvanzyssu9553 [place] [address]Dr. Chrissy Frazier LYMPH # 2.9 103/ul Normal 1.2-3.8 [facility] Comment on above: Performed By: #### C BC ####[facility] Xcslenxgib6892 [place] [address]Dr. Chrissy Frazier Lymphocytes/100 WBC (Bld) 25.7 % Normal 20.5-60.0 [facility] Comment on above: Performed By: #### C BC ####[facility] Uxcmigvtfc5971 [place] [address]Dr. Chrissy Frazier MANUAL DIFF REQ NO Normal [facility] Comment on above: Performed By: #### C BC ####[facility] Vphekvfsci1550 [place] [address]Dr. Chrissy Frazier MCH (RBC) [Entitic mass] 29.2 pg Normal 25.9-34.0 [facility] Comment on above: Performed By: #### C BC ####[facility] Zpffvepeer9950 [place] [address]Dr. Chrissy Frazier MCHC (RBC) [Mass/Vol] 34.0 g/dL Normal 29.9-35.2 [facility] Comment on above: Performed By: #### C BC ####[facility] Vraaguagnw8784 [place] [id number]. Chrissy Frazier MCV (RBC) [Entitic vol] 85.9 fL Normal 80.0-94.0 [facility] Comment on above: Performed By: #### C BC ####[facility] Suiergunkt3398 [place] [id number]. Chrissy Freddie MONO # 1.0 103/ul Critically high 0.3-0.8 [facility] Comment on above: Performed By: #### C BC ####[facility] Ljtlqimijp2548 [place] [address]Dr. Chrissy Frazier Monocytes/100 WBC (Bld) 8.6 % Normal 1.7-12.0 [facility] Comment on above: Performed By: #### C BC ####[facility] Uhpjbbmrxj[address] [place], [place] [address]Dr. Chirssy Frazier NEUT # 7.0 103/ul Critically high 1.4-6.5 [facility] Comment on above: Performed By: #### C BC ####[facility] Neccaaxxfk37[address] [place], [place] [address]Dr. Tishrowan Frazier Neutrophils/100 WBC (Bld) 63.1 % Normal 43.0-75.0 [facility] Comment on above: Performed By: #### C BC ####[facility] Nsaxnhacgc3558 [place] [phone]. Tishrowan Frazier Platelet mean volume (Bld) [Entitic vol] 10.4 fL Normal 9.5-13.5 [facility] Comment on above: Performed By: #### C BC ####[facility] Ugskacyfqk5921 [place] [phone]. Chrissy Frazier PLT 308 103/ul Normal 150-450 [facility] Comment on above: Performed By: #### C BC ####[facility] Mvzvrijqfz7[address] [place], [place] [address]Dr. Chrissy Frazier RBC 4.90 106/ul Normal 4.70-6.10 [facility] Comment on above: Performed By: #### C BC ####[facility] Twiegtpxrm8095 [place] [address]Dr. Tishrowan Freddei WBC 11.1 103/ul Critically high 4.0-11.0 [facility] Comment on above: Performed By: #### C BC ####[facility] Xajdnjixxw6642 [place] [address]Dr. Chrissy Frazier PROF 14(COMP METB)on 022 Albumin [Mass/Vol] 3.5 g/dL Normal 3.4-5.0 [facility] Comment on above: Performed By: #### C MP ####[facility] Wzsklnlmpl[address] [place], [place] [address]Dr. Chrissy Frazier Albumin/Globulin [Mass ratio] 0.9 {ratio} Normal [facility] Comment on above: Performed By: #### C MP ####[facility] Nanoavvjhd0508[address] [place], [place] [address]Dr. Tishrowan Frazier ALP [Catalytic activity/Vol] 68 U/L Normal 46-116 [facility] Comment on above: Performed By: #### C MP ####[facility] Pknqybbomx4[address] [place], [place] [address]Dr. Chrissy Frazier ALT [Catalytic activity/Vol] 113 U/L Critically high 16-63 [facility] Comment on above: Performed By: #### C MP ####[facility] Vipllresjs75[address] [place], [place] [address]Dr. Chrissy Frazier Anion gap [Moles/Vol] 14.0 mmol/L Normal [facility] Comment on above: Performed By: #### C MP ####[facility] Lozfuffbsd75[address] [place], [place] [address]Dr. Chrissy Frazier AST [Catalytic activity/Vol] 31 U/L Normal 15-37 [facility] Comment on above: Performed By: #### C MP ####[facility] Axlrytntns82[address] [place], [place] [address]Dr. Chrissy Frazier Bilirubin [Mass/Vol] 0.6 mg/dL Normal 0.2-1.0 [facility] Comment on above: Performed By: #### C MP ####[facility] Sexsekksag10[address] [place], [place] [address]Dr. Chrissy Frazier Calcium [Mass/Vol] 8.4 mg/dL Critically low 8.5-10.1 [facility] Comment on above: Performed By: #### C MP ####[facility] Qfadtxohsr5[address] [place], [place] [address]Dr. Chrissy Frazier Chloride [Moles/Vol] 101 mmol/L Normal 98-107 [facility] Comment on above: Performed By: #### C MP ####[facility] Tjuqmbsriu20[address] [place], [place] [address]Dr. Chrissy Frazier CO2 [Moles/Vol] 24.2 mmol/L Normal 21.0-32.0 [facility] Comment on above: Performed By: #### C MP ####[facility] Gngsorjivw[address] [place], [place] [address]Dr. Chrissy Frazier Creatinine [Mass/Vol] 1.15 mg/dL Normal 0.70-1.30 [facility] Comment on above: Performed By: #### C MP ####[facility] Ftpzbvoyyl1697[address] [place], [place] [address]Dr. Chrissy Frazier EGFR-AF SURINAMESE >60 Normal >=60 [facility] Comment on above: Performed By: #### C MP ####[facility] Undgezwyib7933[address] [place], [place] [address]Dr. Chrissy Frazier EGFR-NON AF SURINAMESE >60 Normal >=60 [facility] Comment on above: Performed By: #### C MP ####[facility] Qrwhbmeous7616[address] [place], [place] [address]Dr. Chrissy Frazier Globulin (S) [Mass/Vol] 3.8 g/dL Normal [facility] Comment on above: Performed By: #### C MP ####[facility] Tpnagmwmdn0617[address] [place], [place] [address]Dr. Chrissy Frazier Glucose [Mass/Vol] 100 mg/dL Normal 74-106 [facility] Comment on above: Performed By: #### C MP ####[facility] Vvylevkfig6727 [place] [address]Dr. Chrissy Frazier Potassium [Moles/Vol] 3.2 mmol/L Critically low 3.5-5.1 [facility] Comment on above: Performed By: #### C MP ####[facility] Svoplxayfk8665[address] [place], [place] [address]Dr. Chrissy Frazier Protein [Mass/Vol] 7.3 g/dL Normal 6.4-8.2 [facility] Comment on above: Performed By: #### C MP ####[facility] Bnuejlteto9577[address] [place], [place] [address]Dr. Chrissy Frazier Sodium [Moles/Vol] 136 mmol/L Normal 136-145 [facility] Comment on above: Performed By: #### C MP ####[facility] Uqatwllnrm0[address] [place], [place] [address]Dr. Chrissy Frazier Urea nitrogen [Mass/Vol] 13.0 mg/dL Normal 7.0-18.0 [facility] Comment on above: Performed By: #### C MP ####[facility] Vyggchyqub1689[address] [place], [place] [address]Dr. Chrissy Frazier Urea nitrogen/Creatinine [Mass ratio] 11.3 mg/mg Normal [facility] Comment on above: Performed By: #### C MP ####[facility] Nvwokbvhsm[address] [place], [place] [address]Dr. Chrissy Frazier AMMONIAon 03-30-2022 Ammonia (P) [Mass/Vol] ug/dL Critically low 11-32 [facility] Comment on above: Performed By: #### A MM ####[facility] Gwgrqgbhkh64[address] [place], [place] [address]Dr. Chrissy Frazier CBC AUTO DIFFon 03-30-2022 BASO # 0.1 103/ul Normal 0.0-0.1 [facility] Comment on above: Performed By: #### C BC ####[facility] Bliqvctjjb9699[address] [place], [place] [address]Dr. Chrissy Frazier Basophils/100 WBC (Bld) 0.5 % Normal 0.2-2.0 [facility] Comment on above: Performed By: #### C BC ####[facility] Rethowfuso6258 [place] [address]Dr. Chrissy Frazier EO # 0.1 103/ul Normal 0.0-0.7 [facility] Comment on above: Performed By: #### C BC ####[facility] Gpcktzxdeu0167[address] [place], [place] [address]Dr. Chrissy Frazier Eosinophils/100 WBC (Bld) 1.1 % Normal 0.9-7.0 [facility] Comment on above: Performed By: #### C BC ####[facility] Ipmowffprp1050[address] [place], [place] [address]Dr. Chrissy Frazier Erythrocyte distribution width (RBC) [Ratio] 13.4 % Normal 11.0-15.0 [facility] Comment on above: Performed By: #### C BC ####[facility] Nqrtmmkghj8033[address] [place], [place] [address]Dr. Chrissy Frazier Hematocrit (Bld) [Volume fraction] 45.8 % Normal 42.0-54.0 [facility] Comment on above: Performed By: #### C BC ####[facility] Bolnuantli9424[address] [place], [place] [address]Dr. Chrissy Frazier Hemoglobin (Bld) [Mass/Vol] 14.9 g/dL Normal 14.0-18.0 [facility] Comment on above: Performed By: #### C BC ####[facility] Afstwuxdys9[address] [place], [place] [address]Dr. Chrissy Frazier IG # 0.05 10e3/ul Critically high 0.00-0.03 [facility] Comment on above: Performed By: #### C BC ####[facility] Gfhrefkftq9555[address] [place], [place] [address]Dr. Chrissy Frazier IG % 0.5 % Normal 0.0-0.5 [facility] Comment on above: Performed By: #### C BC ####[facility] Vooefwsqda6854[address] [place], [place] [address]Dr. Chrissy Frazier LYMPH # 3.0 103/ul Normal 1.2-3.8 [facility] Comment on above: Performed By: #### C BC ####[facility] Mlwsfjvbkk7439 [place] [address]Dr. Chrissy Frazier Lymphocytes/100 WBC (Bld) 30.2 % Normal 20.5-60.0 [facility] Comment on above: Performed By: #### C BC ####[facility] Npdxlcssqw7205 [place] [address]Dr. Chrissy Frazier MANUAL DIFF REQ NO Normal [facility] Comment on above: Performed By: #### C BC ####[facility] Hewfgurwlx7751 [place] [address]Dr. Chrissy Frazier MCH (RBC) [Entitic mass] 28.4 pg Normal 25.9-34.0 [facility] Comment on above: Performed By: #### C BC ####[facility] Gxoustmdrr5037[address] [place], [place] [address]Dr. Chrissy Frazier MCHC (RBC) [Mass/Vol] 32.5 g/dL Normal 29.9-35.2 [facility] Comment on above: Performed By: #### C BC ####[facility] Eepgvjojaz7260[address] [place], [place] [address]Dr. Chrissy Frazier MCV (RBC) [Entitic vol] 87.4 fL Normal 80.0-94.0 [facility] Comment on above: Performed By: #### C BC ####[facility] Qvwffdubai4894[address] [place], [place] [address]Dr. Chrissy Frazier MONO # 0.8 103/ul Normal 0.3-0.8 [facility] Comment on above: Performed By: #### C BC ####[facility] Kbajykfgoy8249[address] [place], [place] [address]Dr. Chrissy Frazier Monocytes/100 WBC (Bld) 7.9 % Normal 1.7-12.0 [facility] Comment on above: Performed By: #### C BC ####[facility] Jgzadjqvjp9598[address] [place], [place] [address]Dr. Yirowan Frazier NEUT # 5.9 103/ul Normal 1.4-6.5 [facility] Comment on above: Performed By: #### C BC ####[facility] Akclgsceqk4322 [place] [address]DrNancy Frazier Neutrophils/100 WBC (Bld) 59.8 % Normal 43.0-75.0 [facility] Comment on above: Performed By: #### C BC ####[facility] Uvjfsbxpda5546 [place] [address]DrNancy Frazier Platelet mean volume (Bld) [Entitic vol] 10.1 fL Normal 9.5-13.5 [facility] Comment on above: Performed By: #### C BC ####[facility] Vlhxguxlnh1450[address] [place], [place] [address]DrNancy Frazier PLT 320 103/ul Normal 150-450 [facility] Comment on above: Performed By: #### C BC ####[facility] Vbpghiklfg[address] [place], [place] [address]DrNancy Frazier RBC 5.24 106/ul Normal 4.70-6.10 [facility] Comment on above: Performed By: #### C BC ####[facility] Lvqptqcncc9395[address] [place], [place] [address]DrNancy Frazier WBC 9.9 103/ul Normal 4.0-11.0 [facility] Comment on above: Performed By: #### C BC ####[facility] Tkojgiuglw3367[address] [place], [place] [address]Dr. Chrissy Frazier PROF 14(COMP METB)on 022 Albumin [Mass/Vol] 3.9 g/dL Normal 3.4-5.0 [facility] Comment on above: Performed By: #### C MP ####[facility] Hxssvuahzr[address] [place], [place] [address]DrNancy Frazier Albumin/Globulin [Mass ratio] 1.1 {ratio} Normal [facility] Comment on above: Performed By: #### C MP ####[facility] Nxnmenfskj327[address] [place], [place] [address]DrNancy Lowe Frazier ALP [Catalytic activity/Vol] 88 U/L Normal 46-116 [facility] Comment on above: Performed By: #### C MP ####[facility] Oebtoljqjg5218 [place] [address]Dr. Chrissy Frazier ALT [Catalytic activity/Vol] 161 U/L Critically high 16-63 [facility] Comment on above: Performed By: #### C MP ####[facility] Yqivpyqzog954[address] [place], [place] [address]Dr. Chrissy Freddie Anion gap [Moles/Vol] 12.3 mmol/L Normal [facility] Comment on above: Performed By: #### C MP ####[facility] Jutlmsdgzf367[address] [place], [place] [address]Dr. Chrissy Freddie AST [Catalytic activity/Vol] 64 U/L Critically high 15-37 [facility] Comment on above: Performed By: #### C MP ####[facility] Mfpdaehiwj6494[address] [place], [place] [address]Dr. Chrissy Freddie Bilirubin [Mass/Vol] 0.8 mg/dL Normal 0.2-1.0 [facility] Comment on above: Performed By: #### C MP ####[facility] Vvzrpimsix2350[address] [place], [place] [address]Dr. Chrissy Freddie Calcium [Mass/Vol] 8.4 mg/dL Critically low 8.5-10.1 [facility] Comment on above: Performed By: #### C MP ####[facility] Cginiubjmh5232[address] [place], [place] [address]Dr. Chrissy Freddie Chloride [Moles/Vol] 103 mmol/L Normal 98-107 [facility] Comment on above: Performed By: #### C MP ####[facility] Vlkwvemkno4708[address] [place], [place] [address]Dr. Chrissy Frazier CO2 [Moles/Vol] 26.5 mmol/L Normal 21.0-32.0 [facility] Comment on above: Performed By: #### C MP ####[facility] Jdobnoopzc9428[address] [place], [place] [address]Dr. Chrissy Frazier Creatinine [Mass/Vol] 1.24 mg/dL Normal 0.70-1.30 [facility] Comment on above: Performed By: #### C MP ####[facility] Tozjndvngw9138 [place] [address]Dr. Chrissy Frazier EGFR-AF SURINAMESE >60 Normal >=60 [facility] Comment on above: Performed By: #### C MP ####[facility] Rrqtbcblod9017 [place] [address]Dr. Chrissy Freddie EGFR-NON AF SURINAMESE >60 Normal >=60 [facility] Comment on above: Performed By: #### C MP ####[facility] Blqubnbkey0327 [place] [address]Dr. Chrissy Freddie Globulin (S) [Mass/Vol] 3.7 g/dL Normal [facility] Comment on above: Performed By: #### C MP ####[facility] Krplwroxat464[address] [place], [place] [address]Dr. Chrissy Freddie Glucose [Mass/Vol] 108 mg/dL Critically high 74-106 [facility] Comment on above: Performed By: #### C MP ####[facility] Hvbciomecg6632 [place] [address]Dr. Chrissy Freddie Potassium [Moles/Vol] 3.8 mmol/L Normal 3.5-5.1 [facility] Comment on above: Performed By: #### C MP ####[facility] Zgcnzpvpva8488 [place] [address]Dr. Chrissy Freddie Protein [Mass/Vol] 7.6 g/dL Normal 6.4-8.2 [facility] Comment on above: Performed By: #### C MP ####[facility] Wpjvjmcrhj6814 [place] [address]Dr. Chrissy Frazier Sodium [Moles/Vol] 138 mmol/L Normal 136-145 [facility] Comment on above: Performed By: #### C MP ####[facility] Znbtijzesw5260 [place] [address]Dr. Chrissy Freddie Urea nitrogen [Mass/Vol] 12.0 mg/dL Normal 7.0-18.0 [facility] Comment on above: Performed By: #### C MP ####[facility] Cgjagtxcye7206[address] [place], [place] [address]Dr. Chrissy Frazier Urea nitrogen/Creatinine [Mass ratio] 9.7 mg/mg Normal [facility] Comment on above: Performed By: #### C MP ####[facility] Foilrqevbi98[address] [place], [place] [address]Dr. Chrissy Frazier AMMONIAon 03-29-2022 Ammonia (P) [Moles/Vol] 27 umol/L Normal 11-32 [facility] Comment on above: Performed By: #### A MM ####[facility] Nilkhxegru377[address] [place], [place] [address]Dr. Chrissy Frazier AMYLASEon 03-29-2022 Amylase [Catalytic activity/Vol] 29 U/L Normal 25-115 [facility] Comment on above: Performed By: #### L IPA, TERRENCE ####[facility] Fznsopphbc704[address] [place], [place] [address]Dr. Chrissy Frazier CBC AUTO DIFFon 03-29-2022 BASO # 0.0 103/ul Normal 0.0-0.1 [facility] Comment on above: Performed By: #### C BC ####[facility] Evpkdodcph23[address] [place], [place] [address]Dr. Chrissy Frazier Basophils/100 WBC (Bld) 0.2 % Normal 0.2-2.0 [facility] Comment on above: Performed By: #### C BC ####[facility] Ymktnlbnko3755[address] [place], [place] [address]Dr. Chrissy Frazier EO # 0.0 103/ul Normal 0.0-0.7 [facility] Comment on above: Performed By: #### C BC ####[facility] Jqrlpqcpip[address] [place], [place] [address]Dr. Chrissy Frazier Eosinophils/100 WBC (Bld) 0.4 % Critically low 0.9-7.0 [facility] Comment on above: Performed By: #### C BC ####[facility] Pfebeqyldn7532[address] [place], [place] [address]Dr. Chrissy Frazier Erythrocyte distribution width (RBC) [Ratio] 13.6 % Normal 11.0-15.0 [facility] Comment on above: Performed By: #### C BC ####[facility] Qevzpsbcee1914 [place] [address]Dr. Chrissy Frazier Hematocrit (Bld) [Volume fraction] 45.2 % Normal 42.0-54.0 [facility] Comment on above: Performed By: #### C BC ####[facility] Vdvyrtywar1239[address] [place], [place] [address]Dr. Chrissy Frazier Hemoglobin (Bld) [Mass/Vol] 14.8 g/dL Normal 14.0-18.0 [facility] Comment on above: Performed By: #### C BC ####[facility] Csrezfqoyi326[address] [place], [place] [address]Dr. Tishrowan Frazier IG # 0.03 10e3/ul Normal 0.00-0.03 [facility] Comment on above: Performed By: #### C BC ####[facility] Dasrmtutoa[address] [place], [place] [address]Dr. Chrissy Frazier IG % 0.3 % Normal 0.0-0.5 [facility] Comment on above: Performed By: #### C BC ####[facility] Zkiubxbzdn3470[address] [place], [place] [address]Dr. Chrissy Frazier LYMPH # 2.0 103/ul Normal 1.2-3.8 [facility] Comment on above: Performed By: #### C BC ####[facility] Rxcarwvxxq2394[address] [place], [place] [address]Dr. Chrissy Freddie Lymphocytes/100 WBC (Bld) 18.3 % Critically low 20.5-60.0 [facility] Comment on above: Performed By: #### C BC ####[facility] Mrbxnagkkt8096[address] [place], [place] [address]Dr. Tishrowan Frazier MANUAL DIFF REQ NO Normal [facility] Comment on above: Performed By: #### C BC ####[facility] Tznqbuynrn8467[address] [place], [place] [address]Dr. Chrissy Frazier MCH (RBC) [Entitic mass] 28.5 pg Normal 25.9-34.0 [facility] Comment on above: Performed By: #### C BC ####[facility] Kbxztkzvsc4223 [place] [address]Dr. Chrissy Frazier MCHC (RBC) [Mass/Vol] 32.7 g/dL Normal 29.9-35.2 [facility] Comment on above: Performed By: #### C BC ####[facility] Tsggbmsaxd0486[address] [place], [place] [address]Dr. Chrissy Frazier MCV (RBC) [Entitic vol] 87.1 fL Normal 80.0-94.0 [facility] Comment on above: Performed By: #### C BC ####[facility] Omfyzsmrdd648[address] [place], [place] [address]Dr. Chrissy Frazier MONO # 0.9 103/ul Critically high 0.3-0.8 [facility] Comment on above: Performed By: #### C BC ####[facility] Lbmavhrwsn6926[address] [place], [place] [address]Dr. Chrissy Frazier Monocytes/100 WBC (Bld) 8.6 % Normal 1.7-12.0 [facility] Comment on above: Performed By: #### C BC ####[facility] Bsxffcbuvh[address] [place], [place] [address]Dr. Tishrowan Frazier NEUT # 7.8 103/ul Critically high 1.4-6.5 [facility] Comment on above: Performed By: #### C BC ####[facility] Qzbgmrbsge1846[address] [place], [place] [address]Dr. Chrissy Frazier Neutrophils/100 WBC (Bld) 72.2 % Normal 43.0-75.0 [facility] Comment on above: Performed By: #### C BC ####[facility] Narckrbgrf[address] [place], [place] [address]Dr. Chrissy Frazier Platelet mean volume (Bld) [Entitic vol] 10.1 fL Normal 9.5-13.5 [facility] Comment on above: Performed By: #### C BC ####[facility] Fdlzjeghhn9645 [place] [id number]. Chrissy Frazier PLT 329 103/ul Normal 150-450 [facility] Comment on above: Performed By: #### C BC ####[facility] Leacujmwff2865 [place] [id number]. Chrissy Frazier RBC 5.19 106/ul Normal 4.70-6.10 [facility] Comment on above: Performed By: #### C BC ####[facility] Axqtxlprnc3754 [place] [id number]. Chrissy Farzier WBC 10.8 103/ul Normal 4.0-11.0 [facility] Comment on above: Performed By: #### C BC ####[facility] Eesmolvtun1394 [place] [address]Dr. Chrissy Frazier LIPASEon 03-29-2022 Lipase [Catalytic activity/Vol] 58.0 U/L Critically low 73.0-393.0 [facility] Comment on above: Performed By: #### L TERRENCE VICTORIA ####[facility] Huxcnjxrlz4045 [place] [address]Dr. Chrissy Frazier NM HEPATOBILIARY SCAN W EFon 03-29-2022 NM HEPATOBILIARY SCAN W EF Normal [facility] PROF 14(COMP METB)on 022 Albumin [Mass/Vol] 3.8 g/dL Normal 3.4-5.0 [facility] Comment on above: Performed By: #### C MP ####[facility] Vdvragzzcf0844 [place] [address]Dr. Chrissy Frazier Albumin/Globulin [Mass ratio] 1.0 {ratio} Normal [facility] Comment on above: Performed By: #### C MP ####[facility] Wbaohhwmjt9533 [place] [id number]. Tishrowan Frazier ALP [Catalytic activity/Vol] 69 U/L Normal 46-116 [facility] Comment on above: Performed By: #### C MP ####[facility] Usqofgttyf9996 [place] [address]Dr. Chrissy Frazier ALT [Catalytic activity/Vol] 117 U/L Critically high 16-63 [facility] Comment on above: Performed By: #### C MP ####[facility] Wvfwhqzauf3031 [place] [id number]. Chrissy Frazier Anion gap [Moles/Vol] 16.7 mmol/L Normal [facility] Comment on above: Performed By: #### C MP ####[facility] Bqxzhxibsk0647 [place] [id number]. Chrissy Frazier AST [Catalytic activity/Vol] 77 U/L Critically high 15-37 [facility] Comment on above: Performed By: #### C MP ####[facility] Zyhqnrqurk3723 [place] [id number]. Chrissy Freddie Bilirubin [Mass/Vol] 1.5 mg/dL Critically high 0.2-1.0 [facility] Comment on above: Performed By: #### C MP ####[facility] Ienmtvacaq7435 [place] [address]Dr. Tishrowan Freddie Calcium [Mass/Vol] 8.1 mg/dL Critically low 8.5-10.1 [facility] Comment on above: Performed By: #### C MP ####[facility] Bdjxcyhhkp4683 [place] [address]Dr. Chrissy Freddie Chloride [Moles/Vol] 101 mmol/L Normal 98-107 [facility] Comment on above: Performed By: #### C MP ####[facility] Vuoxgtbnhn3318 [place] [id number]. Chrissy Freddie CO2 [Moles/Vol] 24.5 mmol/L Normal 21.0-32.0 [facility] Comment on above: Performed By: #### C MP ####[facility] Qmkkaulicc5107 [place] [id number]. Chrissy Freddie Creatinine [Mass/Vol] 1.17 mg/dL Normal 0.70-1.30 [facility] Comment on above: Performed By: #### C MP ####[facility] Zsepgfbjtd5662 [place] [phone]. Chrissy Freddie EGFR-AF SURINAMESE >60 Normal >=60 [facility] Comment on above: Performed By: #### C MP ####[facility] Ttmbxrzqna8656 [place] [id number]. Chrissy Frazier EGFR-NON AF SURINAMESE >60 Normal >=60 [facility] Comment on above: Performed By: #### C MP ####[facility] Qaimdtgego1218 [place] [id number]. Chrissy Frazier Globulin (S) [Mass/Vol] 3.9 g/dL Normal [facility] Comment on above: Performed By: #### C MP ####[facility] Xkkwgrvsga0905 [place] [address]Dr. Chrissy Frazier Glucose [Mass/Vol] 104 mg/dL Normal 74-106 [facility] Comment on above: Performed By: #### C MP ####[facility] Swsxfrnjrs3421 [place] [address]Dr. Chrissy Frazier Potassium [Moles/Vol] 3.2 mmol/L Critically low 3.5-5.1 [facility] Comment on above: Performed By: #### C MP ####[facility] Uvuntdcgyh8098 [place] [address]Dr. Chrissy Frazier Protein [Mass/Vol] 7.7 g/dL Normal 6.4-8.2 [facility] Comment on above: Performed By: #### C MP ####[facility] Styryfdtbk9793 [place] [address]Dr. Chrissy Frazier Sodium [Moles/Vol] 139 mmol/L Normal 136-145 [facility] Comment on above: Performed By: #### C MP ####[facility] [address]gowrylw[address] [place] [address]Dr. Chrissy Frazier Urea nitrogen [Mass/Vol] 11.0 mg/dL Normal 7.0-18.0 [facility] Comment on above: Performed By: #### C MP ####[facility] Jqmtucbduz2[address] [place] [address]Dr. Chrissy Frazier Urea nitrogen/Creatinine [Mass ratio] 9.4 mg/mg Normal [facility] Comment on above: Performed By: #### C MP ####[facility] Imahajrtcg63[address] [place] [address]Dr. Chrissy Frazier US SINGLE QUAD RT UPPERon US SINGLE QUAD RT UPPER Normal [facility] AMMONIAon 03-28-2022 Ammonia (P) [Moles/Vol] 12 umol/L Normal 11-32 [facility] Comment on above: Performed By: #### A MM ####[facility] Nsyhxnsnte5[address] [place] [address]Dr. Chrissy Frazier CBC AUTO DIFFon 03-28-2022 BASO # 0.0 103/ul Normal 0.0-0.1 [facility] Comment on above: Performed By: #### C BC ####[facility] Qyxwixyw[address] [place], [place] [address]Dr. Chrissy Frazier Basophils/100 WBC (Bld) 0.1 % Critically low 0.2-2.0 [facility] Comment on above: Performed By: #### C BC ####[facility] Ujoiwvyqlb[address] [place], [place] [address]Dr. Chrissy Frazier EO # 0.0 103/ul Normal 0.0-0.7 [facility] Comment on above: Performed By: #### C BC ####[facility] Wdwdblmlre[address] [place], [place] [address]Dr. Chrissy Frazier Eosinophils/100 WBC (Bld) 0.0 % Critically low 0.9-7.0 [facility] Comment on above: Performed By: #### C BC ####[facility] Ppbczrxmch4[address] [place], [place] [address]Dr. Chrissy Frazier Erythrocyte distribution width (RBC) [Ratio] 14.0 % Normal 11.0-15.0 [facility] Comment on above: Performed By: #### C BC ####[facility] Zxhfpwwjeg[address] [place], [place] [address]Dr. Chrissy Frazier Hematocrit (Bld) [Volume fraction] 44.2 % Normal 42.0-54.0 [facility] Comment on above: Performed By: #### C BC ####[facility] Rqixwkncop62[address] [place], [place] [address]Dr. Chrissy Freddie Hemoglobin (Bld) [Mass/Vol] 14.7 g/dL Normal 14.0-18.0 [facility] Comment on above: Performed By: #### C BC ####[facility] Vyzifqhoxm8[address] [place] [address]Dr. Tishrowan Frazier IG # 0.10 10e3/ul Critically high 0.00-0.03 [facility] Comment on above: Performed By: #### C BC ####[facility] Tsngzeneso3081 [place] [address]Dr. Chrissy Frazier IG % 0.5 % Normal 0.0-0.5 [facility] Comment on above: Performed By: #### C BC ####[facility] Yghkcsurcv1714 [place] [address]Dr. Chrissy Frazier LYMPH # 2.6 103/ul Normal 1.2-3.8 [facility] Comment on above: Performed By: #### C BC ####[facility] Cguoixyaah3343 [place] [address]Dr. Chrissy Frazier Lymphocytes/100 WBC (Bld) 13.8 % Critically low 20.5-60.0 [facility] Comment on above: Performed By: #### C BC ####[facility] Tmqvxdaxty500[address] [place] [address]Dr. Tishrowan Frazier MANUAL DIFF REQ NO Normal [facility] Comment on above: Performed By: #### C BC ####[facility] Rngsxfysoq3950 [place] [address]Dr. Chrissy Freddie MCH (RBC) [Entitic mass] 29.0 pg Normal 25.9-34.0 [facility] Comment on above: Performed By: #### C BC ####[facility] Khkjpnsich9083 [place] [address]Dr. Chrissy Freddie MCHC (RBC) [Mass/Vol] 33.3 g/dL Normal 29.9-35.2 [facility] Comment on above: Performed By: #### C BC ####[facility] Zlznwxzvcn3400 [place] [address]Dr. Chrissy Freddie MCV (RBC) [Entitic vol] 87.2 fL Normal 80.0-94.0 [facility] Comment on above: Performed By: #### C BC ####[facility] Qirkpxjscm668[address] [place] [id number]. Chrissy Frazier MONO # 1.1 103/ul Critically high 0.3-0.8 [facility] Comment on above: Performed By: #### C BC ####[facility] Lwsnpheigw8630 [place] [address]Dr. Chrissy Frazier Monocytes/100 WBC (Bld) 5.9 % Normal 1.7-12.0 [facility] Comment on above: Performed By: #### C BC ####[facility] Sypexioqxi49[address] [place], [place] [address]Dr. Chrissy Freddie NEUT # 15.1 103/ul Critically high 1.4-6.5 The [facility] Comment on above: Performed By: #### C BC ####[facility] Xdoqajasat29[address] [place], [place] [address]Dr. Tishrowan Frazier Neutrophils/100 WBC (Bld) 79.7 % Critically high 43.0-75.0 [facility] Comment on above: Performed By: #### C BC ####[facility] Oaflptlawu4859 [place] [address]Dr. Chrissy Frazier Platelet mean volume (Bld) [Entitic vol] 10.3 fL Normal 9.5-13.5 [facility] Comment on above: Performed By: #### C BC ####[facility] Daejxxuinq6206[address] [place], [place] [address]Dr. Chrissy Frazier PLT 358 103/ul Normal 150-450 [facility] Comment on above: Performed By: #### C BC ####[facility] [address]xscvtkc[address] [place], [place] [address]Dr. Chrissy Frazier RBC 5.07 106/ul Normal 4.70-6.10 [facility] Comment on above: Performed By: #### C BC ####[facility] Ljfxkzcoqn8[address] [place], [place] [address]Dr. Chrissy Frazier WBC 18.9 103/ul Critically high 4.0-11.0 The [facility] Comment on above: Performed By: #### C BC ####[facility] Dibyodsysj3673 [place] [address]DrNancy Frazier PROF 14(COMP METB)on 022 Albumin [Mass/Vol] 3.9 g/dL Normal 3.4-5.0 [facility] [place] [facility] Comment on above: Performed By: #### C MP ####[facility] Pmcerluhcr1196 [place] [address]Dr. Chrissy Frazier Albumin/Globulin [Mass ratio] 1.1 {ratio} Normal [facility] Comment on above: Performed By: #### C MP ####[facility] Kyevzrlnxi9037 [place] [address]Dr. Chrissy Frazier ALP [Catalytic activity/Vol] 65 U/L Normal 46-116 [facility] Comment on above: Performed By: #### C MP ####[facility] Voozjglkyj64[address] [place], [place] [address]Dr. Chrissy Frazier ALT [Catalytic activity/Vol] 46 U/L Normal 16-63 [facility] Comment on above: Performed By: #### C MP ####[facility] Ngenzyhioc9376[address] [place], [place] [address]Dr. Chrissy Frazier Anion gap [Moles/Vol] 13.2 mmol/L Normal [facility] Comment on above: Performed By: #### C MP ####[facility] Pfmvgjdpsm2129[address] [place], [place] [address]DrNancy Frazier AST [Catalytic activity/Vol] 33 U/L Normal 15-37 [facility] Comment on above: Performed By: #### C MP ####[facility] Cyszzgtrem9874[address] [place], [place] [address]Dr. Chrissy Frazier Bilirubin [Mass/Vol] 0.8 mg/dL Normal 0.2-1.0 [facility] Comment on above: Performed By: #### C MP ####[facility] Rkxhmgqzkb33[address] [place], [place] [address]Dr. Chrissy Frazier Calcium [Mass/Vol] 8.1 mg/dL Critically low 8.5-10.1 [facility] Comment on above: Performed By: #### C MP ####[facility] Yoomiatlgo[address] [place] [address]Dr. Chrissy Frazier Chloride [Moles/Vol] 102 mmol/L Normal 98-107 [facility] Comment on above: Performed By: #### C MP ####[facility] Sultsqrmgn2777 [place] [address]Dr. Chrissy Frazier CO2 [Moles/Vol] 24.0 mmol/L Normal 21.0-32.0 [facility] Comment on above: Performed By: #### C MP ####[facility] Tlnhsvfakc95[address] [place], [place] [address]Dr. Chrissy Frazier Creatinine [Mass/Vol] 1.26 mg/dL Normal 0.70-1.30 [facility] Comment on above: Performed By: #### C MP ####[facility] Uudbpgvyhq5827[address] [place], [place] [address]Dr. Chrissy Frazier EGFR-AF SURINAMESE >60 Normal >=60 [facility] Comment on above: Performed By: #### C MP ####[facility] Nareqgeafp[address] [place], [place] [address]Dr. Chrissy Frazier EGFR-NON AF SURINAMESE >60 Normal >=60 [facility] Comment on above: Performed By: #### C MP ####[facility] Zelmhptlzy8861 [place] [address]Dr. Chrissy Frazier Globulin (S) [Mass/Vol] 3.7 g/dL Normal [facility] Comment on above: Performed By: #### C MP ####[facility] Pvrklvjpnr2640 [place] [address]Dr. Chrissy Frazier Glucose [Mass/Vol] 119 mg/dL Critically high 74-106 [facility] Comment on above: Performed By: #### C MP ####[facility] Meeaxucndj2986 [place] [address]Dr. Chrissy Frazier Potassium [Moles/Vol] 3.2 mmol/L Critically low 3.5-5.1 [facility] Comment on above: Performed By: #### C MP ####[facility] Ltkhvpmeik4439 [place] [address]Dr. Chrissy Frazier Protein [Mass/Vol] 7.6 g/dL Normal 6.4-8.2 [facility] Comment on above: Performed By: #### C MP ####[facility] Ifzscdyvto1466 [place] [address]Dr. Chrissy Frazier Sodium [Moles/Vol] 136 mmol/L Normal 136-145 [facility] Comment on above: Performed By: #### C MP ####[facility] Ifpvxtfmmh43[address] [place], [place] [address]Dr. Chrissy Frazier Urea nitrogen [Mass/Vol] 14.0 mg/dL Normal 7.0-18.0 [facility] Comment on above: Performed By: #### C MP ####[facility] Ldvowzfblt24[address] [place], [place] [address]Dr. Chrissy Frazier Urea nitrogen/Creatinine [Mass ratio] 11.1 mg/mg Normal [facility] Comment on above: Performed By: #### C MP ####[facility] Fxlnjwsfrc59[address] [place], [place] [address]Dr. Chrissy Freddie CBC W MANUAL DIFFon 03-27-20 22 ATYPICAL LYMPH # Normal [facility] Comment on above: Performed By: #### C BCMAN ####[facility] Xufouprxsn11[address] [place], [place] [address]Dr. Chrissy Frazier ATYPICAL LYMPH % Normal [facility] Comment on above: Performed By: #### C BCMAN ####[facility] Tofljmwqba8739[address] [place], [place] [address]Dr. Chrissy Frazier BAND # 0.0 103/ul Normal 0.0-0.3 [facility] Comment on above: Performed By: #### C BCMAN ####[facility] Fbybqvzyyd5277 [place] [address]Dr. Chrissy Frazier BAND % 0 % Normal 0-5 [facility] Comment on above: Performed By: #### C BCMAN ####[facility] Jjcmgavdzd3668 [place] [id number]. Chrissy Frazier BASOM # 0.00 103/ul Normal 0.00-0.10 [facility] Comment on above: Performed By: #### C BCMAN ####[facility] Xmxujrrnql7655 [place] [id number]. Chrissy Frazier BASOM % 0.0 % Critically low 0.2-2.0 [facility] Comment on above: Performed By: #### C BCMAN ####[facility] Nvimhkdiis7280 [place] [address]Dr. Chrissy Frazier BLAST # Normal [facility] Comment on above: Performed By: #### C BCLEANDRO ####[facility] Ublqnpzyip3608 [place] [address]Dr. Chrissy Frazier BLAST % Normal [facility] Comment on above: Performed By: #### C BCLEANDRO ####[facility] Wfaxzjagnm[address] [place], [place] [address]Dr. Chrissy Frazier CORRECTED WBC Normal 4.0-11.0 [facility] Comment on above: Performed By: #### C BCLEANDRO ####[facility] Wbeqmvayud8[address] [place], [place] [address]Dr. Chrissy Frazier EOS # 0.00 103/ul Normal 0.00-0.70 [facility] Comment on above: Performed By: #### C BCLEANDRO ####[facility] Oswitdsnxh1162 [place] [address]Dr. Chrissy Frazier EOS% 0.0 % Critically low 0.9-7.0 [facility] Comment on above: Performed By: #### C BCLEANDRO ####[facility] Mrvktswsfl3852 [place] [address]Dr. Chrissy Frazier HCT 47.3 % Normal 42.0-54.0 [facility] Comment on above: Performed By: #### C BCLEANDRO ####[facility] Uoweakefdh69[address] [place], [place] [address]Dr. Chrissy Frazier HGB 16.4 g/dl Normal 14.0-18.0 [facility] Comment on above: Performed By: #### C ANTONETTE ####[facility] Doupvtihnn2894 [place], [place] [address]Ef. Chrissy Frazier LYMPHM # 2.31 103/ul Normal 1.20-3.80 [facility] Comment on above: Performed By: #### Silverio WHITMAN ####[facility] Zoklymwyqy5102 [place], [place] [address]Lb. Chrissy Frazier LYMPHM% 9.0 % Critically low 20.5-60.0 [facility] Comment on above: Performed By: #### C ANTONETTE ####[facility] Mgidatxsmm9008 [place] [id number]. Chrissy Frazier MCH 28.6 pg Normal 25.9-34.0 [facility] Comment on above: Performed By: #### Silverio WHITMAN ####[facility] Kojhshtbqz6264 [place] [phone]. Chrissy Frazier MCHC 34.7 g/dl Normal 29.9-35.2 [facility] Comment on above: Performed By: #### Silverio WHITMAN ####[facility] Mhkumrbdre8309 [place] [phone]. Chrissy Frazier MCV 82.4 fL Normal 80.0-94.0 [facility] Comment on above: Performed By: #### Silverio WHITMAN ####[facility] Bstdomxips0502 [place] [id number]. Chrissy Frazier METAMYELOCYTE # Normal [facility] Comment on above: Performed By: #### Silverio WHITMAN ####[facility] Qpvfbrgdwh8793 [place] [id number]. Chrissy Frazier METAMYELOCYTE % Normal [facility] Comment on above: Performed By: #### C ANTONETTE ####[facility] Rlgvgzitgt2527 [place] [id number]. Chrissy Frazier MONOM# 3.85 103/ul Critically high 0.30-0.80 [facility] Comment on above: Performed By: #### Silverio WHITMAN ####[facility] Kfwfgbmnby9187 [place] [id number]. Chrissy Frazier MONOM% 15.0 % Critically high 1.7-12.0 [facility] Comment on above: Performed By: #### C ANTONETTE ####[facility] Kcbopahmhf7902 [place] [id number]. Chrissy Frazier MPV 10.6 fL Normal 9.5-13.5 [facility] Comment on above: Performed By: #### C ANTONETTE ####[facility] Dvwwzmlknx3748 [place] [phone]. Chrissy Frazier MYELOCYTE # Normal [facility] Comment on above: Performed By: #### C ANTONETTE ####[facility] Asrhkupfnl1386 [place] [id number]. Chrissy Frazier MYELOCYTE % Normal [facility] Comment on above: Performed By: #### C ANTONETTE ####[facility] Bkaeqgcvmd4618 [place] [phone]. Chrissy Frazier NRBC Normal [facility] Comment on above: Performed By: #### C ANTONETTE ####[facility] Vzyxjjjazb0581 [place] [phone]. Chrissy Frazier PLT 471 103/ul Critically high 150-450 [facility] Comment on above: Performed By: #### C ANTONETTE ####[facility] Evfqrmuiqy4785 [place] [phone]. Chrissy Frazier RBC 5.74 106/ul Normal 4.70-6.10 [facility] Comment on above: Performed By: #### C ANTONETTE ####[facility] Foomllprwq6103 [place] [address]Dr. Chrissy Frazier RDW 13.7 % Normal 11.0-15.0 [facility] Comment on above: Performed By: #### C ANTONETTE ####[facility] Rtsjpuwxqv4398 [place] [address]Dr. Chrissy Frazier SEG # 19.53 103/ul Critically high 1.40-6.50 [facility] Comment on above: Performed By: #### C ANTONETTE ####[facility] Bcjtagzozm3023 [place] [address]Dr. Tishrowan Frazier SEG % 76.0 % Critically high 43.0-75.0 [facility] Comment on above: Performed By: #### C BCMAN ####[facility] Cwimzhkqvo9685 [place] [address]Dr. Tishrowan Frazier TOXIC GRANULATION SLIGHT Normal [facility] Comment on above: Result Comment: few vacoules Performed By: #### C BCLEANDRO ####[facility] Abfzznnwnw1756 [place] [address]Dr. Chrissy Frazier WBC 25.7 103/ul Critically high 4.0-11.0 [facility] Comment on above: Performed By: #### C ANTONETTE ####[facility] Vezbsfhcmg8916 [place] [address]Dr. Chrissy Frazier LACTATE/LACTIC ACIDon 2021 Lactate [Moles/Vol] 2.4 mmol/L Critically high 0.4-1.9 [facility] Comment on above: Performed By: #### L ACT ####[facility] Ewpnpmdkgb3548 [place] [address]Dr. Chrissy Frazier Lactate [Moles/Vol] 3.5 mmol/L Critically high 0.4-1.9 [facility] Comment on above: Performed By: #### L ACT ####[facility] Lbakcmmglr9311 [place] [address]Dr. Chrissy Frazier LIPASEon 03-27-2022 Lipase [Catalytic activity/Vol] 43.0 U/L Critically low 73.0-393.0 [facility] Comment on above: Performed By: #### C MP, LIPA ####[facility] Mmwkevsbyb2916 [place] [address]Dr. Chrissy Frazier PROF 14(COMP METB)on 022 Albumin [Mass/Vol] 4.7 g/dL Normal 3.4-5.0 [facility] Comment on above: Performed By: #### C MP, LIPA ####[facility] Qarxugnkqy2159 [place] [address]Dr. Chrissy Frazier Albumin/Globulin [Mass ratio] 1.1 {ratio} Normal [facility] Comment on above: Performed By: #### C MP, LIPA ####[facility] Klbtcqwmnp6792 [place] [address]Dr. Chrissy Frazier ALP [Catalytic activity/Vol] 69 U/L Normal 46-116 [facility] Comment on above: Performed By: #### C MP, LIPA ####[facility] Imqenigyhw8235 [place] [address]Dr. Chrissy Frazier ALT [Catalytic activity/Vol] 47 U/L Normal 16-63 [facility] Comment on above: Performed By: #### C MP, LIPA ####[facility] Syzyozwqjg2[address] [place], [place] [address]Dr. Chrissy Freddie Anion gap [Moles/Vol] 23.2 mmol/L Normal [facility] Comment on above: Performed By: #### C MP, LIPA ####[facility] Lktstfhtno8[address] [place], [place] [address]Dr. Chrissy Freddie AST [Catalytic activity/Vol] 23 U/L Normal 15-37 [facility] Comment on above: Performed By: #### C MP, LIPA ####[facility] Gsicoceqhv[address] [place], [place] [address]Dr. Chrissy Freddie Bilirubin [Mass/Vol] 0.7 mg/dL Normal 0.2-1.0 [facility] Comment on above: Performed By: #### C MP, LIPA ####[facility] Ybrvyonygb4[address] [place], [place] [address]Dr. Chrissy Freddie Calcium [Mass/Vol] 9.2 mg/dL Normal 8.5-10.1 [facility] [place] [facility] Comment on above: Performed By: #### C MP, LIPA ####[facility] Bbhibsegkz8118[address] [place], [place] [address]Dr. Tishrowan Freddie Chloride [Moles/Vol] 97 mmol/L Critically low 98-107 [facility] Comment on above: Performed By: #### C MP, LIPA ####[facility] Ailsrahpjl02[address] [place], [place] [address]Dr. Yirowan Frazier CO2 [Moles/Vol] 18.2 mmol/L Critically low 21.0-32.0 [facility] Comment on above: Performed By: #### C MP, LIPA ####[facility] Hgxseefkqh6415 [place] [address]Dr. Chrissy Frazier Creatinine [Mass/Vol] 1.77 mg/dL Critically high 0.70-1.30 [facility] Comment on above: Performed By: #### C MP, LIPA ####[facility] Hhgfwausla10[address] [place], [place] [address]Dr. Chrissy Frazier EGFR-AF SURINAMESE 54 mL/min/1.73m2 Critically low >=60 [facility] Comment on above: Performed By: #### C MP, LIPA ####[facility] Cxctgfemyr[address] [place], [place] [address]Dr. Chrissy Frazier EGFR-NON AF SURINAMESE 45 mL/min/1.73m2 Critically low >=60 [facility] Comment on above: Performed By: #### C MP, LIPA ####[facility] Upphtowkbd7667[address] [place], [place] [address]Dr. Chrissy Frazier Globulin (S) [Mass/Vol] 4.4 g/dL Normal [facility] Comment on above: Performed By: #### C MP, LIPA ####[facility] Rgykwhnzbf5804[address] [place], [place] [address]Dr. Chrissy Frazier Glucose [Mass/Vol] 131 mg/dL Critically high 74-106 [facility] Comment on above: Performed By: #### C MP, LIPA ####[facility] Qikczwoqse[address] [place], [place] [address]Dr. Chrissy Frazier Potassium [Moles/Vol] 3.4 mmol/L Critically low 3.5-5.1 [facility] Comment on above: Performed By: #### C MP, LIPA ####[facility] Gsqigzaaiw93[address] [place], [place] [address]Dr. Chrissy Frazier Protein [Mass/Vol] 9.1 g/dL Critically high 6.4-8.2 [facility] Comment on above: Performed By: #### C MP, LIPA ####[facility] Berivjswzm6892 [place], [place] [address]Zz. Chrissy Frazier Sodium [Moles/Vol] 135 mmol/L Critically low 136-145 [facility] Comment on above: Performed By: #### C MP, LIPA ####[facility] Ioyfwrrocc1803 [place], [place] [address]Bm. Chrissy Frazier Urea nitrogen [Mass/Vol] 19.0 mg/dL Critically high 7.0-18.0 [facility] Comment on above: Performed By: #### C MANA, LIPA ####[facility] Ssmmokseqc4547 [place] [phone]. Chrissy Frazier Urea nitrogen/Creatinine [Mass ratio] 10.7 mg/mg Normal [facility] Comment on above: Performed By: #### C MANA, LIPA ####[facility] Npoyqgwdsr8931 [place] [id number]. Chrissy Frazier BMPon 11-03-2020 Anion gap [Moles/Vol] 14 mmol/L Normal 6-16 [facility] Comment on above: Performed By: #### 2 [id number], [id number], [id number] #### [facility] [address] [place] [address] Calcium [Mass/Vol] 9.0 mg/dL Normal 8.9-11.1 [facility] Comment on above: Performed By: #### 2 857751, [id number], [id number] #### [facility] [address] [place] [address] Chloride [Moles/Vol] 104 mmol/L Normal 101-111 [facility] Comment on above: Performed By: #### 2 [id number], [id number], [id number] #### [facility] [address] [place] [address] CO2 [Moles/Vol] 21 mmol/L Normal 21-31 [facility] Comment on above: Performed By: #### 2 907751, [id number], [id number] #### [facility] [address] [place] [address] Creatinine [Mass/Vol] 1.3 mg/dL Normal 0.5-1.3 [facility] Comment on above: Performed By: #### 2 282958, [id number], [id number] #### [facility] [address] [place] [address] Glucose [Mass/Vol] 111 mg/dL Normal 55-199 [facility] Comment on above: Result Comment: If t his glucose result represents a fasting glucose, interpretation should refer to the following reference range: 55-99 mg/dL Performed By: #### 2 [id number], [id number], [id number] #### [facility] [address] [place] [address] Potassium [Moles/Vol] 2.9 mmol/L Low 3.5-5.3 [facility] Comment on above: Performed By: #### 2 049525, [id number], [id number] #### [facility] [address] [place] [address] Sodium [Moles/Vol] 136 mmol/L Normal 135-145 [facility] Comment on above: Performed By: #### 2 874031, 0545195, [id number] #### [facility] [address] [place] [address] Urea nitrogen [Mass/Vol] 14 mg/dL Normal 5-21 [facility] Comment on above: Performed By: #### 2 052675, [id number], [id number] #### [facility] [address] [place] [address] Urea nitrogen/Creatinine [Mass ratio] 11 No Units Normal 10-20 [facility] Comment on above: Performed By: #### 2 215696, 7141389, [id number] #### [facility] [address] [place] [address] Lipase Levelon 11-03-2020 Lipase [Catalytic activity/Vol] 66 unit/L High 13-58 [facility] Comment on above: Performed By: #### 2 607271, [id number], [id number] #### [facility] [address] [place] [address] Physician Orderon 11-03-2020 Physician Order [id number] 3#1.00CD:127 Normal [facility] eGFRon 11-03-2020 GFR/1.73 sq M predicted among blacks MDRD (S/P/Bld) [Vol rate/Area] mL/min/{1.73_m2} Normal >=59 [facility] Comment on above: Order Comment: Order added by Discern Expert. Result Comment: eGFR is race adjusted. AA=. Performed By: #### 2 387475, [id number], [id number] #### [facility] [address] [place] [address] GFR/1.73 sq M predicted among non-blacks MDRD (S/P/Bld) [Vol rate/Area] mL/min/{1.73_m2} Normal >=59 [facility] Comment on above: Order Comment: Order added by Discern Expert. Result Comment: Lecturer Of Portuguese lindsay kidney disease could be indicated at eGFR's of less than 60 mL/min/1.73m2. Kidney failure is indicated at less than 15 mL/min/1.73m2. Performed By: #### 2 355550, [id number], [id number] #### [facility] [address] [place] [address] Encounters Encounter Date Encounter Type Care Provider Facility Start: 05-16-2024 End: 05-16-2024 ambulatory TUNG NORTHEIM Not Available Start: 03-07-2024 End: 03-07-2024 ambulatory TUNG NORTHEIM Not Available Start: 03-30-2023 ambulatory Luis Angel Muniz cility:[facility] Start: 01-03-2023 End: 01-04-[address] MELODY MARIO . Facility: Start: 01-03-2023 End: 01-04-2023 ambulatory RAQUEL [facility] Facility:[facility] Start: 12-29-2022 End: 12-30-[address] MELODY MARIO . Facility:[facility] Start: 12-13-2022 End: 12-14-2022 ambulatory [facility] Start: 11-24-2022 End: 11-24-2022 ambulatory [facility] Start: 11-16-2022 End: 11-17-[address] MELODY [...] Date Payer Category Payer Self-pay 1990 Unknown [id number] 01.06. [id number] 1990 Unknown [id number] 0.1.190073.3.579.259 1990 Unknown [id number] 0.1.845679.3.579.2 1990 Unknown [id number] 0.1.573884.3.579.2593 1990 Unknown [id number] ..[id number] 0.1.828163.3.579.259 1990 Unknown [id number] 2.16.84 0.1.247126.3.579.2.593 1990 Unknown [id number] 2.16.84 0.1.732773.3.579.2.593 1990 Unknown [id number] 2.16.84 0.1.850024.3.579.2.593 1990 Unknown [id number] 2.16.84 0.1.799842.3.579.2.593 1990 Unknown [id number] 2.16.84 0.1.689439.3.579.2.593 1990 Unknown [id number] 2.16.84 0.1.041765.3.579.2.593 1990 Unknown [id number] 2.16.84 0.1.113776.3.579.2.593 1990 Unknown [id number] 2.16.84 0.1.150741.3.579.2.593 1990 Unknown [id number] 2.16.84 0.1.226939.3.579.2.1259 1990 Unknown [id number] 2.16.84 0.1.751821.3.579.2.1259 1959 Private Health Insurance [id number] Unknown [id number] 2.16.8 40.1.062000.3.579.2.531 Progress note 11-24-2022 Note Date & Type [...] report that his father had a fatal DC at the age of 54. Stress test [...] factor modification -Plan (more content not included)... [facility] Progress note 11-24-2022 Note Date & Type [...] All other systems reviewed and are negative. [facility] Summary Purpose Family History No Family History [...] section and content) DATE CREATED AUTHOR 11/04/2020 [facility] DATE CREATED AUTHOR AUTHOR'S ORGANIZ ATION 01/08/2023 [facility] DATE CREATED AUTHOR AUTHOR'S ORGANIZ ATION 02/07/2023 [facility] DATE CREATED AUTHOR AUTHOR'S ORGANIZ ATION 04/01/[address] [facility] DATE CREATED AUTHOR AUTHOR'S ORGANIZ ATION 05/17/2024 [facility] FOR RECORDS PERTAINING TO PATIENTS WHO [...] BE BASED ON THE PRIMARY CLINICAL RECORDS. [employer] provides no warranty or guarantee of the accuracy or completeness of information in this document.
== END 2024-10-23 13:17 | disposition home or self-care (01) ==
LOC: EC 13:16
PROVIDERS: PCP Family Medicine; Visit Provider Podiatrist Foot & Ankle Surgery
DX: M19.171 Post-traumatic osteoarthritis, right ankle and foot (principal); M24.674 Ankylosis, right foot
CPT/HCPCS: 73630

== ENCOUNTER 2025-04-01 08:08 | Outpatient (OUT) | payer OTHER, SELFPAY ==
--- NOTE | 2025-04-01 08:14 | MR_ITS ---
[address] [address] Patient Name: PAULINA CHARLES MRN: [id number] date: 1990 Sex: M Assigned Patient Location: MRI Current Patient Location: MRI Accession/Order Number: [id number] Exam Date: 04/01/2025 16:01 Report Date: 04/01/2025 22:44 At the request of: MELODY PHELPS MD Procedure: MR shoulder RT wo con MRI right Shoulder without contrast TECHNIQUE: Multiplanar T1 and T2-weighted imaging obtained without contrast. HISTORY: Chronic right shoulder pain. Duration greater than 10 years. Previous sports injury. History of shoulder impingement. No history of surgery. COMPARISON: No comparison imaging BONE MARROW EDEMA: None FRACTURE: None AC JOINT: Extensive degenerative changes with large marginal spurs. Multiloculated cystic collection superior to the acromioclavicular joint. Findings may suggest communication of the subacromial subdeltoid bursal fluid with the acromioclavicular joint space. May suggest small geyser cyst. This measures up to 2.3 cm. SHOULDER ROOF LIGAMENTS: The coracoacromial and coracoclavicular ligaments are intact. ROTATOR CUFF: Signal artifact identified within the humeral head. Highly suggestive of an anchor screw from rotator cuff repair surgery. Large amount of fluid surrounds the suspected anchor screw. Findings suggestive of loosening. The infraspinatus tendon near the anchor screw is heterogeneous in signal intensity and thin suggesting high-grade partial undersurface articular tear. Tiny amount of subacromial subdeltoid bursal fluid is present. There is thickening of the supraspinatus tendon with heterogeneous signal changes suggesting high-grade tenosynovitis. Teres minor intact. Subscapularis tendon intact. ROTATOR CUFF INTERVAL: Unremarkable BURSAL FLUID: Small subacromial subdeltoid bursal fluid identified. GLENOID: Subtle chondromalacia suggestive of degenerative change. BICEPS LABRAL COMPLEX: Intact LONG HEAD OF BICEPS TENDON: Intact GLENOHUMERAL LIGAMENTS: The superior glenohumeral ligament is intact. The middle glenohumeral ligament is intact. The anterior and posterior glenohumeral ligaments are intact. JOINT EFFUSION: No significant joint effusion is seen. MUSCLES: Normal signal intensity of the muscles. NO SUBCUTANEOUS TISSUES: No subcutaneous abnormalities identified. MR/MR shoulder RT wo con IMPRESSION: finding of rotator cuff surgery with anchor screw within the humeral head. Surrounding the anchor screw there is a large amount of fluid. Findings would suggest loosening of the screw. There is also heterogeneous signal changes of the infraspinatus tendon and thinning and subarticular region near the anchor screw. Suggest high-grade partial articular surface tear. Thickening and heterogeneous signal changes of the supraspinatus tendon consistent with high-grade tendinosis. 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 Subtle chondromalacia of the glenoid consistent with degenerative change. Impression dictated by: Jovanni Casillas M.D. 04/01/2025 10:44 PM Dictation Location: [place] [address] Electronically authenticated by: [id number] Y Date: 04/01/2025 22:44
--- OUTSIDE RECORDS SUMMARY | 2025-04-01 08:16 | XMS_ITS | CCD ---
Author Organization [facility] Team Providers Care Jewel Bearing Broacher Name Role Phone DARREN MOHAMAAmelie Referring Unavailable LESLIEHOTHANI, MOHAMAD Attending Unavailable HOY ., DR OLIVER [...] HOY ., DR OLIVER Primary Care Unavailable CHREYL .DELORES Consulting Unavailable HAY ., DR PIMENTEL Consulting Unavailable HAY ., DR PIMENTEL Attending Unavailable HAY ., DR PIMENTEL Admitting Unavailable HOY ., DR OLIVER Primary Care Unavailable SHYANN CM Consulting Unavailable ALGHOMARIAANI, RAQUEL Consulting Unavailable HOY ., DR OLIVER Primary Care Unavailable LESLIEHOMARTHA MADERAD Attending Unavailable ALGHOTHANI, MOHAMAD Admitting Unavailable HOTree ., DR OLIVER Consulting [...] Unavailable HOY ., DR OLIVER Admitting Unavailable CREIGHTON, DR RAPHAEL Lemon Consulting Unavailable Michaels, K [...] Conway Admitting UnavailMelody Benitez Primary Care Unavailable Unavailable Primary Care Provider UnavailTUNG Wolf Attending Unavailable TUNG GUNN Attending Unavailable TUNG GUNN Attending Unavailable Allergies Allergy Classification Reported Allergen(s) Allergy Type Date of Onset Reaction(s) Facility (6 sources) Penicillins; Translations: [PENICILLINS] Propensity to adverse reactions to drug (disorder) 09-28-20 07 Unknown [facility] Repository (4 sources) Sulfamethoxazole / Trimethoprim; Translations: [SULFAMETHOXAZOLE-TR IMETHOPRIM] Drug Allergy 01-27-20 21 [facility] Repository (1 source) Clarithromycin Drug Allergy [facility] Repository (1 source) Sulfamethoxazole / Trimethoprim Drug Allergy 05-27-20 17 [facility] Repository (1 source) Sulfamethoxazole Drug Allergy 03-20-20 [facility] Repository (1 source) Trimethoprim Drug Allergy 03-20-20 20 [facility] Repository (3 sources) Clarithromycin Allergy to substance 03-07-20 24 [facility] Medications Current Medications Medication Drug Class(es) Dates Sig (Normalized) Sig (Original) amphetamine aspartate 7.5 mg / amphetamine sulfate 7.5 mg / dextroamphetamine saccharate 7.5 mg / dextroamphetamine sulfate 7.5 mg oral tablet (3 sources) Central Nervous System Stimulant Start: 2024 Adderall 30 MG tablet 1 (one) time each day at the same time 2024 Active ciclopirox 10 mg/ml medicated shampoo (6 sources) Start: 03-07-2024 Ciclopirox 1 % shampoo Indications: Tinea versicolor Lather on body, leave on 5 min, rinse 2-3 x week, 30 day supply 120 mL 11 03/07/2024 Active Start: 03-07-2024 ciclopirox (Lo prox) 0.77 % cream Indications: Tinea versicolor Apply thin layer to affected area once a day, when flared. 90 g 11 03/07/2024 Active cloNIDine hydrochloride 0.1 mg oral tablet (3 sources) Central alpha-2 Adrenergic Agonist take 2 tablets by mouth twice daily cloNIDine (Catapres) 0.1 MG tablet TAKE 2 TABLETS BY MOUTH TWICE A DAY for 90 Active diclofenac sodium 75 mg delayed release oral tablet (3 sources) Nonsteroidal Anti-inflammatory Drug Start: 12-22-19 24 diclofenac (Voltaren) 75 MG EC tablet every 12 (twelve) hours 12/22/2023 Active fluconazole 100 mg oral tablet (5 sources) Azole Antifungal Start: 05-16-20 End: 12-04-19 25 fluconazole (Diflucan) 100 MG tablet Indications: Tinea versicolor 3 tablets by mouth now, repeat in 1 week/14 days 6 tablet 12/04/2024 Active hydrOXYzine pamoate 25 mg oral capsule (3 sources) Antihistamine take 1 capsule by mouth four times daily as needed hydrOXYzine pamoate (Vistaril) 25 MG capsule TAKE 1 CAPSULE BY MOUTH FOUR TIMES A DAY NEEDED for 90 Active 12 hr hyoscyamine sulfate 0.375 mg extended release oral tablet (8 sources) take 1 tablet by mouth every hour hyoscyamine ER (Levbid) 0.375 MG 12 hr tablet Take 0.375 mg by mouth every 12 (twelve) hours if needed Active End: 12-04-2024 hyoscyamine (Levsin/SL) 0.12 5 MG SL tablet every 8 (eight) hours 12/04/2024 Discontinued End: 12-04-2024 take 0.125 mg by mouth every four hours hyoscyamine (Levsin) 0.125 MG/5ML elixir Take 0.125 mg by mouth every 4 (four) hours 12/04/2024 Discontinued ibuprofen 800 mg oral tablet (3 sources) Nonsteroidal Anti-inflammatory Drug Start: 04-08-2023 take 1 tablet by mouth every eight hours ibuprofen 800 MG tablet Take 800 mg by mouth every 8 (eight) hours 04/08/2023 Active ketoconazole 20 mg/ml topical cream (2 sources) Azole Antifungal Start: 12-04-2024 ketoconazole (NIZOral) 2 % cream Indications: Tinea versicolor Apply thin layer to affected area once daily 60 g 11 12/04/2024 Active lithium carbonate 300 mg oral capsule (3 sources) take 1 capsule by mouth once daily at bedtime lithium 300 MG capsule TAKE 1 CAPSULE BY MOUTH EVERY DAY AT BEDTIME for 90 Active meloxicam 15 mg oral tablet (3 sources) Nonsteroidal Anti-inflammatory Drug Start: 01-12-2024 meloxicam (Mobic) 15 MG tablet 1 (one) time each day at the same time 01/12/2024 Active metoclopramide 5 mg oral tablet (6 sources) Dopamine-2 Receptor Antagonist metoclopramide (Reglan) 10 MG tablet Take 10 mg by mouth in the morning and 10 mg at noon and 10 mg in the evening and 10 mg before bedtime. Active metoclopramide ( Reglan) 5 MG tablet every 8 (eight) hours Active pantoprazole 40 mg delayed release oral tablet (3 sources) Proton Pump Inhibitor pantoprazo le (ProtoNix) 40 MG EC tablet 1 (one) time each day at the same time Active promethazine hydrochloride 25 mg rectal suppository (3 sources) Phenothiazine Start: 11-28-19 promethazine (Phenergan) 25 MG suppository every 12 (twelve) hours 11/28/2023 Active propranolol hydrochloride 80 mg oral tablet (3 sources) beta-Adrenergic Nelida take 1 tablet by mouth once daily propranolol (Inderal) 80 MG tablet TAKE 1 TABLET BY MOUTH EVERY DAY for 90 Active Problems Active Problems Problem Classification Problem Date [...] D/O SINGLE EPIS UNS] Onset: 10-24-2022 Chronic Mycoses (2 sources) Pityriasis versicolor; Translations: [Pityriasis versicolor] 12-04-2024 Episodic Nausea and vomiting (7 sources) Vomiting, unspecified; Translations: [Nausea with vomiting, unspecified] Onset: 07-07-2022 Episodic Nonspecific chest pain (9 sources) Chest pain, unspecified; Translations: [Other chest pain] Onset: 11-16-2022 Episodic Other aftercare (1 source) Other alf (current) drug therapy; Translations: [OTH HAND FINISHER CURRENT DRUG THERAPY] Onset: 02-07-2023 Episodic Other [...] IGG ABS 0.09 Index Value Normal 0.00-0.79 T [facility] Comment on above: Result Comment: Nega tive <0.80 Equivocal 0.80 - 0.89 Positive >0.89 Performed By: #### H PYLLC ####[facility] R[address]rsvzrjr[address] [place], [place] [address]Dr. Chrissy Frazier AMYLASEon 01-04-2023 Amylase [Catalytic activity/Vol] 34 U/L Normal 25-115 [facility] Comment on above: Performed By: #### A MY ####[facility] Nftkhalukj[address] [place], [place] [address]Dr. Chrissy Frazier CBC AUTO DIFFon 01-04-2023 BASO # 0.0 103/ul Normal 0.0-0.1 [facility] Comment on above: Performed By: #### C BC ####[facility] Ktilzbruhi[address] [place], [place] [address]Dr. Chrissy Frazier Basophils/100 WBC (Bld) 0.1 % Critically low 0.2-2.0 [facility] Comment on above: Performed By: #### C BC ####[facility] U[address]jaqx[address] [place], [place] [address]Dr. Chrissy Frazier EO # 0.0 103/ul Normal 0.0-0.7 [facility] Comment on above: Performed By: #### C BC ####[facility] Urqmiqxhxf[address] [place], [place] [address]Dr. Chrissy Frazier Eosinophils/100 WBC (Bld) 0.1 % Critically low 0.9-7.0 [facility] Comment on above: Performed By: #### C BC ####[facility] Vgufqtbxte[address] [place], [place] [address]Dr. Chrissy Frazier Erythrocyte distribution width (RBC) [Ratio] 14.0 % Normal 11.0-15.0 [facility] Comment on above: Performed By: #### C BC ####[facility] [address] [place] [address]Dr. Chrissy Frazier Hematocrit (Bld) [Volume fraction] 40.4 % Critically low 42.0-54.0 [facility] Comment on above: Performed By: #### C BC ####[facility] [address] [place] [address]Dr. Chrissy Freddie Hemoglobin (Bld) [Mass/Vol] 13.8 g/dL Critically low 14.0-18.0 [facility] Comment on above: Performed By: #### C BC ####[facility] Gorvehgzna[address] [place], [place] [address]Dr. Chrissy Freddie IG # 0.05 10e3/ul Critically high 0.00-0.03 [facility] Comment on above: Performed By: #### C BC ####[facility] Ihtrnxljlm[address] [place], [place] [address]Dr. Chrissy Frazier IG % 0.3 % Normal 0.0-0.5 [facility] Comment on above: Performed By: #### C BC ####[facility] Nfbvjnehju[address] [place], [place] [address]Dr. Tishrowan Frazier LYMPH # 1.7 103/ul Normal 1.2-3.8 [facility] Comment on above: Performed By: #### C BC ####[facility] Liquqhsmpv[address] [place], [place] [address]Dr. Tishrowan Frazier Lymphocytes/100 WBC (Bld) 11.9 % Critically low 20.5-60.0 [facility] Comment on above: Performed By: #### C BC ####[facility] Tpoaudnqra[address] [place], [place] [address]Dr. Tishrowan Frazier MANUAL DIFF REQ NO Normal [facility] Comment on above: Performed By: #### C BC ####[facility] Egiizwaizo[address] [place], [place] [address]DrNancy Tishrowan Frazier MCH (RBC) [Entitic mass] 29.3 pg Normal 25.9-34.0 [facility] Comment on above: Performed By: #### C BC ####[facility] [address] [place] [id number]. Chrissy Freddie MCHC (RBC) [Mass/Vol] 34.2 g/dL Normal 29.9-35.2 [facility] Comment on above: Performed By: #### C BC ####[facility] [address] [place] [address]Dr. Tishrowan Frazier MCV (RBC) [Entitic vol] 85.8 fL Normal 80.0-94.0 [facility] Comment on above: Performed By: #### C BC ####[facility] [address] [place], [place] [id number]. Chrissy Frazier MONO # 0.6 103/ul Normal 0.3-0.8 [facility] Comment on above: Performed By: #### C BC ####[facility] U[address]jxobv[address] [place], [place] [address]Dr. Chrissy Frazier Monocytes/100 WBC (Bld) 4.2 % Normal 1.7-12.0 [facility] Comment on above: Performed By: #### C BC ####[facility] Dzwrymkqoj[address] [place], [place] [address]Dr. Chrissy Frazier NEUT # 12.0 103/ul Critically high 1.4-6.5 [facility] Comment on above: Performed By: #### C BC ####[facility] Gw[address] [place], [place] [id number]. Chrissy Frazier Neutrophils/100 WBC (Bld) 83.4 % Critically high 43.0-75.0 [facility] Comment on above: Performed By: #### C BC ####[facility] Zpkxleej[address] [place], [place] [address]Dr. Chrissy Frazier Platelet mean volume (Bld) [Entitic vol] 10.4 fL Normal 9.5-13.5 [facility] Comment on above: Performed By: #### C BC ####[facility] Uhzgjjromo[address] [place], [place] [address]Dr. Chrissy Frazier PLT 313 103/ul Normal 150-450 [facility] Comment on above: Performed By: #### C BC ####[facility] [address] [place] [address]Dr. Chrissy Frazier RBC 4.71 106/ul Normal 4.70-6.10 [facility] Comment on above: Performed By: #### C BC ####[facility] [address] [place] [address]Dr. Chrissy Frazier WBC 14.4 103/ul Critically high 4.0-11.0 [facility] Comment on above: Performed By: #### C BC ####[facility] V[address] [place] [id number]. Chrissy Frazier CULTURE URINEon 01-04-2023 CULTURE URINE Culture Observations: NO GROWTH. Normal [facility] Comment on above: Performed By: #### U RCX ####[facility] [address]xs[address] [place] [address]Dr. Chrissy Frazier DRUG SCREEN RAPID (URINE)on 01-04-2023 AMP Negative Normal NEGATIVE [facility] Comment on above: Performed By: #### Amelie CHAMBERS UAMIC ####[facility] Xsfogbmxls[address] [place], [place] [address]Dr. Chrissy Frazier BAR Negative Normal NEGATIVE [facility] Comment on above: Performed By: #### Amelie CHAMBERS UAMIC ####[facility] N[address] [place] [id number]. Chrissy Frazier BUP Negative Normal NEGATIVE [facility] Comment on above: Performed By: #### Amelie CHAMBERS UAMIC ####[facility] Lbsxpivtet[address] [place] [address]Dr. Chrissy Frazier BZO Positive Abnormal NEGATIVE [facility] Comment on above: Performed By: #### Amelie CHAMBERS UAMIC ####[facility] Zox[address]geqj[address] [place] [address]Dr. Chrissy Frazier LAUREN Negative Normal NEGATIVE [facility] Comment on above: Performed By: #### Amelie CHAMBERS UAMIC ####[facility] Yostjqfntn[address] [place] [address]Dr. Chrissy Frazier CUT-OFFS SEE BELOW Normal [facility] Comment on above: Result Comment: AMP [...] ng/mL Performed By: #### Amelie CHAMBERS UAMIC ####[facility] Aesxykfiir[address] [place], [place] [address]Dr. [facility] DRUG CUT HEADER DRUG CLASS TEST SYSTEM CUT-OFF CONCENTRATIONS ARE FOLLOWS: Normal [facility] Comment on above: Performed By: #### Amelie CHAMBERS UAMIC ####[facility] Jpmfnkgvrk[address] [place], [place] [address]Dr. [facility] mAMP Negative Normal NEGATIVE [facility] Comment on above: Performed By: #### Amelie CHAMBERS UAMIC ####[facility] Dksixrgbbt[address] [place], [place] [address]Dr. Chrissy Frazier MTD Negative Normal NEGATIVE [facility] Comment on above: Performed By: #### Amelie CHAMBERS UAMIC ####[facility] Wgnfjgqymg[address] [place], [place] [address]Dr. [facility] OPI Negative Normal NEGATIVE [facility] Comment on above: Performed By: #### Amelie CHAMBERS UAMIC ####[facility] Mkbkldqqvt[address] [place], [place] [address]Dr. [facility] OXY Negative Normal NEGATIVE [facility] Comment on above: Performed By: #### Amelie CHAMBERS UAMIC ####[facility] Voymaummma2[address] [place], [place] [address]Dr. rowan [facility] PCP Negative Normal NEGATIVE [facility] Comment on above: Performed By: #### Amelie CHAMBERS UAMIC ####[facility] Euobeterob[address] [place] [id number]. Chrissy Frazier PPX Negative Normal NEGATIVE [facility] Comment on above: Performed By: #### D REYES UAMIC ####[facility] [address]qp[address] [place] [id number]. Chrissy Frazier TCA Positive Abnormal NEGATIVE [facility] Comment on above: Performed By: #### D REYES UAMIC ####[facility] [address]rc[address] [place] [address]Dr. Chrissy Frazier THC Positive Abnormal NEGATIVE [facility] Comment on above: Performed By: #### D REYES UAMIC ####[facility] [address]mt[address] [place] [address]Dr. Chrissy Frazier LIPASEon 01-04-2023 Lipase [Catalytic activity/Vol] 57.0 U/L Critically low 73.0-393.0 [facility] Comment on above: Performed By: #### L IPA ####[facility] [address] [place] [address]Dr. Chrissy Frazier PROF 14(COMP METB)on 023 Albumin [Mass/Vol] 3.6 g/dL Normal 3.4-5.0 [facility] Comment on above: Performed By: #### C MP ####[facility] [address] [place] [address]Dr. Chrissy Frazier Albumin/Globulin [Mass ratio] 1.0 {ratio} Normal [facility] Comment on above: Performed By: #### C MP ####[facility] X[address]vqev[address] [place] [address]Dr. Chrissy Frazier ALP [Catalytic activity/Vol] 67 U/L Normal 46-116 [facility] Comment on above: Performed By: #### C MP ####[facility] T[address]qnewok[address] [place] [address]Dr. Chrissy Frazier ALT [Catalytic activity/Vol] 26 U/L Normal 16-63 [facility] Comment on above: Performed By: #### C MP ####[facility] Zkctobzzpj49[address] [place] [id number]. Chrissy Frazier Anion gap [Moles/Vol] 16.3 mmol/L Normal [facility] Comment on above: Performed By: #### C MP ####[facility] S[address]sw[address] [place] [address]Dr. Chrissy Frazier AST [Catalytic activity/Vol] 17 U/L Normal 15-37 [facility] Comment on above: Performed By: #### C MP ####[facility] I[address]nuzaotd[address] [place] [address]Dr. Chrissy Frazier Bilirubin [Mass/Vol] 0.4 mg/dL Normal 0.2-1.0 [facility] Comment on above: Performed By: #### C MP ####[facility] V[address]br[address]fux32[address] [place] [address]Dr. Chrissy Frazier Calcium [Mass/Vol] 8.7 mg/dL Normal 8.5-10.[address] [facility] Comment on above: Performed By: #### C MP ####[facility] Yntlahlxkx[address] [place], [place] [address]Dr. Chrissy Freddie Chloride [Moles/Vol] 106 mmol/L Normal 98-107 [facility] Comment on above: Performed By: #### C MP ####[facility] Wbwgbdonci[address] [place], [place] [address]Dr. Chrissy Freddie CO2 [Moles/Vol] 22.6 mmol/L Normal 21.0-32.0 [facility] Comment on above: Performed By: #### C MP ####[facility] L[address]apdcdw5[address] [place] [address]Dr. Chrissy Freddie Creatinine [Mass/Vol] 0.99 mg/dL Normal 0.70-1.30 [facility] Comment on above: Performed By: #### C MP ####[facility] Sduqnuqqzl[address] [place], [place] [address]Dr. Tishrowan Freddie EGFR-AF ARMENIAN >60 Normal >=60 [facility] Comment on above: Performed By: #### C MP ####[facility] Hacwxqfubg[address] [place], [place] [address]Dr. Chrissy Frazier EGFR-NON AF ARMENIAN >60 Normal >=60 [facility] Comment on above: Performed By: #### C MP ####[facility] Thwgslbzok[address] [place], [place] [address]Dr. Chrissy Frazier Globulin (S) [Mass/Vol] 3.6 g/dL Normal [facility] Comment on above: Performed By: #### C MP ####[facility] Tsxfjhgbmp7[address] [place], [place] [address]Dr. Chrissy Frazier Glucose [Mass/Vol] 138 mg/dL Critically high 74-[address] [facility] Comment on above: Performed By: #### C MP ####[facility] Dqqwlnhtib[address] [place], [place] [address]Dr. Chrissy Frazier Potassium [Moles/Vol] 3.9 mmol/L Normal 3.5-5.1 [facility] Comment on above: Performed By: #### C MP ####[facility] Tgtgsjpoia43[address] [place], [place] [address]Dr. Chrissy Frazier Protein [Mass/Vol] 7.2 g/dL Normal 6.4-8.2 [facility] Comment on above: Performed By: #### C MP ####[facility] Gliinuhlpe[address] [place], [place] [address]Dr. Chrissy Frazier Sodium [Moles/Vol] 141 mmol/L Normal 136-145 [facility] Comment on above: Performed By: #### C MP ####[facility] Irsiiouxyi[address] [place], [place] [address]Dr. Chrissy Frazier Urea nitrogen [Mass/Vol] 10.0 mg/dL Normal 7.0-18.0 [facility] Comment on above: Performed By: #### C MP ####[facility] H[address]mkvvlakr[address] [place], [place] [address]Dr. Chrissy Frazier Urea nitrogen/Creatinine [Mass ratio] 10.1 mg/mg Normal [facility] Comment on above: Performed By: #### C MP ####[facility] Xhvsqozgcs[address] [place], [place] [address]Dr. Chrissy Frazier UA RANDOM W/MICROSCOPICon 02 -14-2023 BACTERIA TRACE Abnormal NONE SEEN [facility] Comment on above: Performed By: #### Amelie CHAMBERS, UAMIC ####[facility] Tuzpwoltzg[address] [place], [place] [address]Dr. Chrissy Frazier Bilirubin Ql (U) Negative Normal NEGATIVE [facility] Comment on above: Performed By: #### Amelie CHAMBERS, UAMIC ####[facility] Jtelnkboui[address] [place], [place] [address]Dr. Chrissy Frazier CAST NONE SEEN Normal NONE SEEN [facility] Comment on above: Performed By: #### Amelie CHAMBERS, UAMIC ####[facility] Nafzkkdqzk[address] [place], [place] [address]Dr. Chrissy Frazier Clarity (U) CLEAR Normal CLEAR [facility] Comment on above: Performed By: #### Amelie CHAMBERS, UAMIC ####[facility] Cqhdpxnafg[address] [place], [place] [address]Dr. Chrissy Frazier Color (U) YELLOW Normal YELLOW [facility] Comment on above: Performed By: #### Amelie CHAMBERS, UAMIC ####[facility] Tmnedccdqe[address] [place], [place] [address]Dr. Chrissy Frazier Crystals LM Nom (Urine sed) NONE SEEN Normal NONE SEEN [facility] Comment on above: Performed By: #### Amelie CHAMBERS, UAMIC ####[facility] Uthauygage[address] [place], [place] [address]Dr. Chrissy Frazier Epithelial cells LM Ql (Urine sed) NONE SEEN Normal NONE SEEN /RARE [facility] Comment on above: Performed By: #### Amelie CHAMBERS, UAMIC ####[facility] Ayurcvhnee[address] [place], [place] [address]Dr. Chrissy Frazier Glucose Ql (U) Negative Normal NEGATIVE [facility] Comment on above: Performed By: #### Amelie CHAMBERS, UAMIC ####[facility] [address]wicdhgo[address] [place] [address]Dr. Chrissy Frazier Hemoglobin Ql (U) Negative Normal NEGATIVE [facility] Comment on above: Performed By: #### D RUGRPD, UAMIC ####[facility] Txpgiacoql[address] [place] [address]Dr. Chrissy Frazier Ketones Ql (U) 15 mg/dl Abnormal NEGATIVE [facility] Comment on above: Performed By: #### Amelie CHAMBERS UAMIC ####[facility] D[address]ajrup[address] [place] [address]Dr. Chrissy Frazier LEUKOCYTES Negative Normal NEGATIVE [facility] Comment on above: Performed By: #### Amelie CHAMBERS UAMIC ####[facility] Nkxhxvmjpi[address] [place], [place] [address]Dr. Chrissy Frazier MUCOUS NONE SEEN Normal NONE SEEN [facility] Comment on above: Performed By: #### Amelie CHAMBERS UAMIC ####[facility] Lndkpbkntf[address] [place], [place] [address]Dr. Chrissy Frazier Nitrite Ql (U) Negative Normal NEGATIVE [facility] Comment on above: Performed By: #### Ameile CHAMBERS UAMIC ####[facility] K[address]acuqkuga[address] [place], [place] [address]Dr. Chrissy Frazier pH (U) 6.5 [pH] Normal 5-9 [facility] Comment on above: Performed By: #### Amelie CHAMBERS UAMIC ####[facility] Rygokxyznb[address] [place], [place] [address]Dr. Chrissy Frazier RBC NONE SEEN Abnormal 0-2 [facility] Comment on above: Performed By: #### Amelie CHAMBERS UAMIC ####[facility] [address]ztebstvpn[address] [place], [place] [address]Dr. Chrissy Frazier SPEC GRAVITY 1.020 Normal 1.005-<=1.025 [facility] Comment on above: Performed By: #### Amelie CHAMBERS UAMIC ####[facility] Youxyposvt[address] [place], [place] [address]Dr. Chrissy Frazier UA PROTEIN Negative Normal NEGATIVE/ TRACE [facility] Comment on above: Performed By: #### Amelie CHAMBERS UAMIC ####[facility] Itaqcvyjkt[address] [place], [place] [address]Dr. Chrissy Frazier Urobilinogen Qn (U) 0.2 {Estrellita'U}/dL Normal 0.2 - 1. 0 [facility] Comment on above: Performed By: #### D REYES UAMIC ####[facility] G[address]gtgxt[address] [place] [address]Dr. Chrissy Frazier WBC NONE SEEN Normal NONE SEEN [facility] Comment on above: Performed By: #### D REYES UAMIC ####[facility] Rzhtbvvlkh[address] [place] [address]Dr. Chrissy Frazier AMMONIAon 01-03-2023 Ammonia (P) [Moles/Vol] 17 umol/L Normal 11-32 [facility] Comment on above: Performed By: #### A MM ####[facility] Mjdzkvujio[address] [place], [place] [address]Dr. Chrissy Frazier AMYLASEon 01-03-2023 Amylase [Catalytic activity/Vol] 38 U/L Normal 25-115 [facility] Comment on above: Performed By: #### L IPA, TERRENCE, CMP, MG ####[facility] Gakkyfadpo[address] [place], [place] [address]Dr. Chrissy Frazier CBC AUTO DIFFon 01-03-2023 BASO # 0.1 103/ul Normal 0.0-0.1 [facility] Comment on above: Performed By: #### C BC ####[facility] Selxnevuce[address] [place], [place] [address]Dr. Chrissy Frazier Basophils/100 WBC (Bld) 0.4 % Normal 0.2-2.0 [facility] Comment on above: Performed By: #### C BC ####[facility] Ouzggfnixk[address] [place], [place] [address]Dr. Chrissy Frazier EO # 0.1 103/ul Normal 0.0-0.7 [facility] Comment on above: Performed By: #### C BC ####[facility] Qthivruqwv4[address] [place], [place] [address]Dr. Chrissy Frazier Eosinophils/100 WBC (Bld) 0.3 % Critically low 0.9-7.0 [facility] Comment on above: Performed By: #### C BC ####[facility] [address]evl[address] [place] [address]Dr. Chrissy Frazier Erythrocyte distribution width (RBC) [Ratio] 13.7 % Normal 11.0-15.0 [facility] Comment on above: Performed By: #### C BC ####[facility] Cubjbxvdks[address] [place] [address]Dr. Chrissy Frazier Hematocrit (Bld) [Volume fraction] 46.1 % Normal 42.0-54.0 [facility] Comment on above: Performed By: #### C BC ####[facility] Jrwhsmpisi6869[address] [place], [place] [address]Dr. Chrissy Frazier Hemoglobin (Bld) [Mass/Vol] 15.4 g/dL Normal 14.0-18.0 [facility] Comment on above: Performed By: #### C BC ####[facility] Kjsfpyeqdy[address] [place], [place] [address]Dr. Chrissy Frazier IG # 0.11 10e3/ul Critically high 0.00-0.03 [facility] Comment on above: Performed By: #### C BC ####[facility] Tizminplcw[address] [place], [place] [address]Dr. Chrissy Frazier IG % 0.6 % Critically high 0.0-0.5 [facility] Comment on above: Performed By: #### C BC ####[facility] Bdhzgqcxcy57[address] [place], [place] [address]Dr. Chrissy Frazier LYMPH # 2.5 103/ul Normal 1.2-3.8 [facility] Comment on above: Performed By: #### C BC ####[facility] Jrdprflutx6[address] [place], [place] [address]Dr. Chrissy Frazier Lymphocytes/100 WBC (Bld) 13.9 % Critically low 20.5-60.0 [facility] Comment on above: Performed By: #### C BC ####[facility] Pajiurbata[address] [place], [place] [address]Dr. Chrissy Frazier MANUAL DIFF REQ NO Normal [facility] Comment on above: Performed By: #### C BC ####[facility] [address]plunajth[address] [place] [id number]. Chrissy Freddie MCH (RBC) [Entitic mass] 28.6 pg Normal 25.9-34.0 [facility] Comment on above: Performed By: #### C BC ####[facility] Drymcfbuvq[address] [place] [id number]. Chrissy Freddie MCHC (RBC) [Mass/Vol] 33.4 g/dL Normal 29.9-35.2 [facility] Comment on above: Performed By: #### C BC ####[facility] Gbuxooznhb[address] [place] [address]Dr. Chrissy Frazier MCV (RBC) [Entitic vol] 85.7 fL Normal 80.0-94.0 [facility] Comment on above: Performed By: #### C BC ####[facility] Vttzhdyfck[address] [place], [place] [address]Dr. Chrissy Frazier MONO # 0.7 103/ul Normal 0.3-0.8 [facility] Comment on above: Performed By: #### C BC ####[facility] Lumvvdyydg1738[address] [place], [place] [address]Dr. Chrissy Frazier Monocytes/100 WBC (Bld) 4.0 % Normal 1.7-12.0 [facility] Comment on above: Performed By: #### C BC ####[facility] Hwbxxknlhs17[address] [place], [place] [address]Dr. Chrissy Frazier NEUT # 14.3 103/ul Critically high 1.4-6.5 [facility] [place] Comment on above: Performed By: #### C BC ####[facility] Hoyeumjhfg44[address] [place], [place] [address]Dr. Chrissy Frazier Neutrophils/100 WBC (Bld) 80.8 % Critically high 43.0-75.0 [facility] Comment on above: Performed By: #### C BC ####[facility] Cuzrqgzlan76[address] [place], [place] [address]Dr. Chrissy Frazier Platelet mean volume (Bld) [Entitic vol] 10.4 fL Normal 9.5-13.5 [facility] Comment on above: Performed By: #### C BC ####[facility] [address]wkpjeovx[address] [place] [address]Dr. Chrissy Frazier PLT 437 103/ul Normal 150-450 [facility] Comment on above: Performed By: #### C BC ####[facility] Rennpjutok[address] [place] [address]Dr. Chrissy Frazier RBC 5.38 106/ul Normal 4.70-6.10 [facility] Comment on above: Performed By: #### C BC ####[facility] Ywcqtaivia58[address] [place] [address]Dr. Chrissy Frazier WBC 17.7 103/ul Critically high 4.0-11.0 [facility] [place] Comment on above: Performed By: #### C BC ####[facility] Ubkuesdgcg4[address] [place], [place] [address]Dr. Chrissy Frazier CULTURE BLOODon 01-03-2023 Microscopic examination of blood, culture Culture Observations: NO GROWTH AT 5 DAYS. Normal [facility] Comment on above: Performed By: #### B LDCX1 ####[facility] Fmvposeaht8[address] [place], [place] [address]Dr. Chrissy Frazier Performed By: #### B LDCX2 ####[facility] Mjllvqgqeh6[address] [place], [place] [address]Dr. Chrissy Frazier ECHOCARDIO M/2D COMPLETEon 0 01-03-2023 ECHOCARDIO M/2D COMPLETE Normal [facility] LACTATE/LACTIC ACIDon 2022 Lactate [Moles/Vol] 2.7 mmol/L Critically high 0.4-1.9 [facility] Comment on above: Performed By: #### L ACT ####[facility] Kqhfulcslk39[address] [place], [place] [address]Dr. Chrissy Frazier Lactate [Moles/Vol] 6.3 mmol/L Critically high 0.4-1.9 [facility] Comment on above: Performed By: #### L ACT ####[facility] Ghzbldraxn919[address] [place], [place] [address]Dr. Chrissy Frazier LIPASEon 01-03-2023 Lipase [Catalytic activity/Vol] 74.0 U/L Normal 73.0-393.0 [facility] Comment on above: Performed By: #### L IPA, TERRENCE, CMP, MG ####[facility] [address]et[address] [place] [address]Dr. Chrissy Frazier MAGNESIUMon 01-03-2023 Magnesium [Mass/Vol] 1.6 mg/dL Critically low 1.8-2.4 [facility] Comment on above: Performed By: #### L IPA, TERRENCE, CMP, MG ####[facility] Vrrmtgcbza[address] [place] [address]Dr. Chrissy Frazier PROF 14(COMP METB)on 023 Albumin [Mass/Vol] 4.3 g/dL Normal 3.4-5.0 [facility] Comment on above: Performed By: #### L IPA, TERRENCE, CMP, MG ####[facility] Spejvkjthy[address] [place], [place] [address]Dr. Chrissy Frazier Albumin/Globulin [Mass ratio] 1.1 {ratio} Normal [facility] Comment on above: Performed By: #### L IPA, TERRENCE, CMP, MG ####[facility] Wflrzvkfco[address] [place], [place] [address]Dr. Chrissy Frazier ALP [Catalytic activity/Vol] 87 U/L Normal 46-116 [facility] Comment on above: Performed By: #### L IPA, TERRENCE, CMP, MG ####[facility] [address]xtvkqmr[address] [place] [address]Dr. Chrissy Frazier ALT [Catalytic activity/Vol] 32 U/L Normal 16-63 [facility] Comment on above: Performed By: #### L IPA, TERRENCE, CMP, MG ####[facility] Lmfxieghrk[address] [place] [address]Dr. Chrissy Frazier Anion gap [Moles/Vol] 24.0 mmol/L Normal [facility] Comment on above: Performed By: #### L IPA, TERRENCE, CMP, MG ####[facility] Kixjemqvrv4[address] [place] [address]Dr. Chrissy Frazier AST [Catalytic activity/Vol] 22 U/L Normal 15-37 [facility] Comment on above: Performed By: #### L IPA, TERRENCE, CMP, MG ####[facility] [address]evcwzgae[address] [place] [address]Dr. Chrissy Frazier Bilirubin [Mass/Vol] 0.6 mg/dL Normal 0.2-1.0 [facility] Comment on above: Performed By: #### L IPA, TERRENCE, CMP, MG ####[facility] T[address]peuouenn[address] [place] [address]Dr. Chrissy Frazier Calcium [Mass/Vol] 9.6 mg/dL Normal 8.5-10.1 [facility] Comment on above: Performed By: #### L IPA, TERRENCE, CMP, MG ####[facility] Grvpkmhddu[address] [place] [address]Dr. Chrissy Frazier Chloride [Moles/Vol] 103 mmol/L Normal 98-107 [facility] Comment on above: Performed By: #### L IPA, ETRRENCE, CMP, MG ####[facility] Vejpqfldco[address] [place] [address]Dr. Chrissy Frazier CO2 [Moles/Vol] 16.7 mmol/L Critically low 21.0-32.0 [facility] Comment on above: Performed By: #### L IPA, TERRENCE, CMP, MG ####[facility] Ertungsjuv[address] [place] [address]Dr. Chrissy Frazier Creatinine [Mass/Vol] 1.42 mg/dL Critically high 0.70-1.30 [facility] Comment on above: Performed By: #### L IPA, TERRENCE, CMP, MG ####[facility] [address]ys[address]lu[address] [place] [address]Dr. Chrissy Frazier EGFR-AF ARMENIAN >60 Normal >=60 [facility] [place] Comment on above: Performed By: #### L IPA, TERRENCE, CMP, MG ####[facility] K[address]enukpjn[address] [place] [address]Dr. Chrissy Frazier EGFR-NON AF ARMENIAN 58 mL/min/1.73m2 Critically low >=60 [facility] Comment on above: Performed By: #### L IPA, TERRENCE, CMP, MG ####[facility] O[address]quwgaky[address] [place] [address]Dr. Chrissy Frazier Globulin (S) [Mass/Vol] 4.0 g/dL Normal [facility] Comment on above: Performed By: #### L IPA, TERRENCE, CMP, MG ####[facility] Crburuoovf[address] [place] [address]Dr. Chrissy Frazier Glucose [Mass/Vol] 149 mg/dL Critically high 74-[address] [facility] Comment on above: Performed By: #### L IPA, TERRENCE, CMP, MG ####[facility] Ekiheedfaz[address] [place] [address]Dr. Chrissy Frazier Potassium [Moles/Vol] 3.7 mmol/L Normal 3.5-5.1 [facility] Comment on above: Performed By: #### L IPA, TERRENCE, CMP, MG ####[facility] Eczboqnjra[address] [place] [address]Dr. Chrissy Frazier Protein [Mass/Vol] 8.3 g/dL Critically high 6.4-8.[address] [facility] Comment on above: Performed By: #### L IPA, TERRENCE, CMP, MG ####[facility] Sfrnuqgonk[address] [place] [address]Dr. Chrissy Frazier Sodium [Moles/Vol] 140 mmol/L Normal 136-145 [facility] Comment on above: Performed By: #### L IPA, TERRENCE, CMP, MG ####[facility] Uftjivsaxs[address] [place] [address]Dr. Chrissy Frazier Urea nitrogen [Mass/Vol] 16.0 mg/dL Normal 7.0-18.0 [facility] Comment on above: Performed By: #### L IPA, TERRENCE, CMP, MG ####[facility] Tyjkkenvfm36[address] [place] [address]Dr. Chrissy Frazier Urea nitrogen/Creatinine [Mass ratio] 11.3 mg/mg Normal [facility] Comment on above: Performed By: #### L IPA, TERRENCE, CMP, MG ####[facility] Wluynmajbp[address] [place], [place] [address]Qa. Chrissy Frazier SED RATE WESTERGRENon 2022 SED RATE 37 mm/hr Critically high <=15 [facility] Comment on above: Performed By: #### S EDR ####[facility] Jpnfucegdi2941 [place], [place] [address]Wj. Chrissy Frazier XR ABD FLAT UP_PA Enoch 01-03 XR ABD FLAT UP_PA CH Normal [facility] CT HEART CORONARY ANGIOGRAMo n 12-13-2022 [...] CT examination Electronically signed: Maikel Chappell. Normal [facility] Office Visiton 11-24-2022 Follow-up visit [id number] MonteroTerence 1990 M Date Provider Department Center 11/24/2022 3848-RAQUEL BANKS [facility] Family History Problem Relation Age of Onset Coronary artery disease Father Heart attack Father 54 Family Status - Relation Status Age at Father Level of Service:31253 [place] OFFICE/OUTPATIENT NEW MODERATE MDM 45-59 MINUTES Reason for Visit and Comments: abnormal stress test [Other] Normal [facility] CARDIAC STRESS TESTon 2021 CARDIAC STRESS TEST Normal [facility] AMYLASEon 10-24-2022 Amylase [Catalytic activity/Vol] 26 U/L Normal 25-115 [facility] Comment on above: Performed By: #### C MP, LIPA, TERRENCE ####[facility] Bwxfsidwye[address] [place] [address]Dr. Chrissy Frazier CBC AUTO DIFFon 10-24-2022 BASO # 0.0 103/ul Normal 0.0-0.1 [facility] Comment on above: Performed By: #### C BC ####[facility] Aqegkthdqo[address] [place] [id number]. Chrissy Frazier Basophils/100 WBC (Bld) 0.2 % Normal 0.2-2.0 [facility] Comment on above: Performed By: #### C BC ####[facility] Rpwklccmkf7175 [place] [address]Dr. Chrissy Frazier EO # 0.1 103/ul Normal 0.0-0.7 [facility] Comment on above: Performed By: #### C BC ####[facility] Bnxhehthkc[address] [place], [place] [address]Dr. Chrissy Frazier Eosinophils/100 WBC (Bld) 0.4 % Critically low 0.9-7.0 [facility] Comment on above: Performed By: #### C BC ####[facility] Mecllvufmc[address] [place], [place] [address]Dr. Chrissy Frazier Erythrocyte distribution width (RBC) [Ratio] 14.6 % Normal 11.0-15.0 [facility] Comment on above: Performed By: #### C BC ####[facility] Etpqxidjps1203 [place] [address]Dr. Chrissy Frazier Hematocrit (Bld) [Volume fraction] 39.4 % Critically low 42.0-54.0 [facility] Comment on above: Performed By: #### C BC ####[facility] Diobknvflr[address] [place], [place] [address]Dr. Chrissy Frazier Hemoglobin (Bld) [Mass/Vol] 13.2 g/dL Critically low 14.0-18.0 [facility] Comment on above: Performed By: #### C BC ####[facility] Xpxskxvlir62[address] [place] [address]Dr. Chrissy Frazier IG # 0.07 10e3/ul Critically high 0.00-0.03 [facility] Comment on above: Performed By: #### C BC ####[facility] Fzoesqlrhj0625 [place] [address]Dr. Chrissy Freddie IG % 0.5 % Normal 0.0-0.5 [facility] Comment on above: Performed By: #### C BC ####[facility] Uqxcllmnzg4895 [place] [address]Dr. Chrissy Freddie LYMPH # 3.7 103/ul Normal 1.2-3.8 [facility] Comment on above: Performed By: #### C BC ####[facility] Blueosmmxi9551 [place] [address]Dr. Tishrowan Frazier Lymphocytes/100 WBC (Bld) 27.0 % Normal 20.5-60.0 [facility] Comment on above: Performed By: #### C BC ####[facility] Yklrecccji[address] [place] [address]Dr. Tishrowan Frazier MANUAL DIFF REQ NO Normal [facility] Comment on above: Performed By: #### C BC ####[facility] Agyuhsqxje14[address] [place] [address]Dr. Chrissy Freddie MCH (RBC) [Entitic mass] 27.8 pg Normal 25.9-34.0 [facility] Comment on above: Performed By: #### C BC ####[facility] [address]cvmuqxxu[address] [place], [place] [address]Dr. Chrissy Frazier MCHC (RBC) [Mass/Vol] 33.5 g/dL Normal 29.9-35.2 [facility] Comment on above: Performed By: #### C BC ####[facility] Swexpcxzza7[address] [place] [address]Dr. Chrissy Freddie MCV (RBC) [Entitic vol] 82.9 fL Normal 80.0-94.0 [facility] Comment on above: Performed By: #### C BC ####[facility] Pgfyfapskk[address] [place], [place] [address]Dr. Chrissy Frazier MONO # 1.2 103/ul Critically high 0.3-0.8 [facility] Comment on above: Performed By: #### C BC ####[facility] Yignkasakm78[address] [place] [address]Dr. Chrissy Frazier Monocytes/100 WBC (Bld) 8.4 % Normal 1.7-12.0 [facility] Comment on above: Performed By: #### C BC ####[facility] Bhdpusciho6517 [place] [address]Dr. Chrissy Frazier NEUT # 8.8 103/ul Critically high 1.4-6.5 [facility] Comment on above: Performed By: #### C BC ####[facility] Kvritagpmf9[address] [place] [address]Dr. Chrissy Frazier Neutrophils/100 WBC (Bld) 63.5 % Normal 43.0-75.0 [facility] Comment on above: Performed By: #### C BC ####[facility] Pvynlcjxvr4[address] [place] [address]Dr. Chrissy Frazier Platelet mean volume (Bld) [Entitic vol] 10.7 fL Normal 9.5-13.5 [facility] Comment on above: Performed By: #### C BC ####[facility] Oirwmojbrh80[address] [place] [address]Dr. Chrissy Frazier PLT 291 103/ul Normal 150-450 [facility] Comment on above: Performed By: #### C BC ####[facility] Ftfoqqzsau9[address] [place] [address]Dr. Chrissy Frazier RBC 4.75 106/ul Normal 4.70-6.10 [facility] Comment on above: Performed By: #### C BC ####[facility] Etdqgsgthb3220 [place] [address]Dr. Chrissy Frazier WBC 13.8 103/ul Critically high 4.0-11.0 [facility] [place] Comment on above: Performed By: #### C BC ####[facility] Zathjkkbsw8[address] [place] [address]Dr. Chrissy Frazier LIPASEon 10-24-2022 Lipase [Catalytic activity/Vol] 44.0 U/L Critically low 73.0-393.0 [facility] Comment on above: Performed By: #### C MP, LIPA, TERRENCE ####[facility] Svsyrgneyj[address] [place] [address]Dr. Chrissy Frazier PROF 14(COMP METB)on 022 Albumin [Mass/Vol] 3.4 g/dL Normal 3.4-5.0 [facility] Comment on above: Performed By: #### C MP, LIPA, TERRENCE ####[facility] Owpnextbiy6994 [place] [address]Dr. Chrissy Frazier Albumin/Globulin [Mass ratio] 0.9 {ratio} Normal [facility] Comment on above: Performed By: #### C MP, LIPA, TERRENCE ####[facility] Utbpfwhdqv[address] [place], [place] [address]Dr. Chrissy Frazier ALP [Catalytic activity/Vol] 67 U/L Normal 46-116 [facility] Comment on above: Performed By: #### C MP, LIPA, TERRENCE ####[facility] Poblefhnus[address] [place], [place] [address]Dr. Chrissy Frazier ALT [Catalytic activity/Vol] 25 U/L Normal 16-63 [facility] Comment on above: Performed By: #### C MP, LIPA, TERRENCE ####[facility] Nelfekwuvv14[address] [place], [place] [address]Dr. Chrissy Frazier Anion gap [Moles/Vol] 14.5 mmol/L Normal [facility] Comment on above: Performed By: #### C MP, LIPA, TERRENCE ####[facility] Rvpbzblnlm[address] [place], [place] [address]Dr. Chrissy Frazier AST [Catalytic activity/Vol] 17 U/L Normal 15-37 [facility] Comment on above: Performed By: #### C MP, LIPA, TERRENCE ####[facility] Ytkhrhqdij24[address] [place], [place] [address]Dr. Chrissy Frazier Bilirubin [Mass/Vol] 0.5 mg/dL Normal 0.2-1.0 [facility] Comment on above: Performed By: #### C MP, LIPA, TERRENCE ####[facility] Ithmdkgpib0743 [place] [address]Dr. Chrissy Frazier Calcium [Mass/Vol] 8.6 mg/dL Normal 8.5-10.1 [facility] Comment on above: Performed By: #### C OSWALD ADAIR, TERRENCE ####[facility] Golqxciktw53[address] [place] [address]Dr. Chrissy Frazier Chloride [Moles/Vol] 106 mmol/L Normal 98-107 [facility] Comment on above: Performed By: #### C OSWALD ADAIR, TERRENCE ####[facility] Eeafiwasay4122 [place] [address]Dr. Chrissy Frazier CO2 [Moles/Vol] 22.8 mmol/L Normal 21.0-32.0 [facility] Comment on above: Performed By: #### C OSWALD ADAIR TERRENCE ####[facility] Lwfkolwhvt40[address] [place], [place] [address]Dr. Chrissy Frazier Creatinine [Mass/Vol] 0.98 mg/dL Normal 0.70-1.30 [facility] Comment on above: Performed By: #### C OSWALD ADAIR, TERRENCE ####[facility] Yykhjaqjns[address] [place], [place] [address]Dr. Chrissy Frazier EGFR-AF ARMENIAN >60 Normal >=60 [facility] Comment on above: Performed By: #### C OSWALD ADAIR, TERRENCE ####[facility] Qexpisaxan299[address] [place], [place] [address]Dr. Chrissy Frazier EGFR-NON AF ARMENIAN >60 Normal >=60 [facility] Comment on above: Performed By: #### C OSWALD ADAIR, TERRENCE ####[facility] Fdeajlsxho5054 [place] [address]Dr. Chrissy Frazier Globulin (S) [Mass/Vol] 3.7 g/dL Normal [facility] Comment on above: Performed By: #### C OSWALD ADAIR, TERRENCE ####[facility] Nmgqjzizqb[address] [place], [place] [address]Dr. Chrissy Frazier Glucose [Mass/Vol] 115 mg/dL Critically high 74-[address] [facility] Comment on above: Performed By: #### C OSWALD ADAIR, TERRENCE ####[facility] Hyjdeghdrf9142 [place] [address]Dr. Tishrowan Frazier Potassium [Moles/Vol] 3.3 mmol/L Critically low 3.5-5.1 [facility] Comment on above: Performed By: #### C MP, LIPA, TERRENCE ####[facility] Ikdunlirwe[address] [place] [address]Dr. Chrissy Frazier Protein [Mass/Vol] 7.1 g/dL Normal 6.4-8.[address] [facility] Comment on above: Performed By: #### C MP, LIPA, TERRENCE ####[facility] Tyudvnioyr[address] [place], [place] [address]Dr. Chrissy Frazier Sodium [Moles/Vol] 140 mmol/L Normal 136-[address] [facility] Comment on above: Performed By: #### C MP, LIPA, TERRENCE ####[facility] Odnxqzcjuz17[address] [place], [place] [address]Dr. Chrissy Frazier Urea nitrogen [Mass/Vol] 10.0 mg/dL Normal 7.0-18.0 [facility] Comment on above: Performed By: #### C MP, LIPA, TERRENCE ####[facility] Wwkjtbcqkn[address] [place], [place] [address]Dr. Chrissy Frazier Urea nitrogen/Creatinine [Mass ratio] 10.2 mg/mg Normal [facility] Comment on above: Performed By: #### C MP, LIPA, TERRENCE ####[facility] Rjnyluvrtm[address] [place], [place] [address]Dr. Chrissy Frazier AMYLASEon 10-23-2022 Amylase [Catalytic activity/Vol] 31 U/L Normal 25-115 [facility] Comment on above: Performed By: #### C MP, LIPA, TERRENCE ####[facility] Khwktndhif[address] [place], [place] [address]Dr. Chrissy Frazier CBC AUTO DIFFon 10-23-2022 BASO # 0.1 103/ul Normal 0.0-0.1 [facility] Comment on above: Performed By: #### C BC ####[facility] Rvxhpwupuo[address] [place], [place] [address]Dr. Chrissy Frazier Basophils/100 WBC (Bld) 0.3 % Normal 0.2-2.0 [facility] Comment on above: Performed By: #### C BC ####[facility] Ltjugylmvn[address] [place], [place] [id number]. Chrissy Frazier EO # 0.1 103/ul Normal 0.0-0.7 [facility] Comment on above: Performed By: #### C BC ####[facility] Qlstwbunaz98[address] [place], [place] [address]Dr. Chrissy Frazier Eosinophils/100 WBC (Bld) 0.3 % Critically low 0.9-7.0 [facility] Comment on above: Performed By: #### C BC ####[facility] Uifexgamfy[address] [place], [place] [address]Dr. Chrissy Frazier Erythrocyte distribution width (RBC) [Ratio] 14.5 % Normal 11.0-15.0 [facility] Comment on above: Performed By: #### C BC ####[facility] Scrzmypxrr2446[address] [place], [place] [address]Dr. Chrissy Frazier Hematocrit (Bld) [Volume fraction] 44.0 % Normal 42.0-54.0 [facility] Comment on above: Performed By: #### C BC ####[facility] Tfsuapbaqq00[address] [place], [place] [address]Dr. Chrissy Frazier Hemoglobin (Bld) [Mass/Vol] 14.8 g/dL Normal 14.0-18.0 [facility] Comment on above: Performed By: #### C BC ####[facility] Jiumtojvml57[address] [place], [place] [id number]. Chrissy Frazier IG # 0.09 10e3/ul Critically high 0.00-0.03 [facility] Comment on above: Performed By: #### C BC ####[facility] Qmzsrdfokj24[address] [place], [place] [id number]. Chrissy Frazier IG % 0.5 % Normal 0.0-0.5 [facility] Comment on above: Performed By: #### C BC ####[facility] Ahxjoigekf8768[address] [place], [place] [address]Dr. Tishrowan Freddie LYMPH # 3.6 103/ul Normal 1.2-3.8 [facility] Comment on above: Performed By: #### C BC ####[facility] Xerlompckm[address] [place] [address]Dr. Chrissy Freddie Lymphocytes/100 WBC (Bld) 19.4 % Critically low 20.5-60.0 [facility] Comment on above: Performed By: #### C BC ####[facility] Gnasyubcjr36[address] [place] [address]Dr. Chrissy Frazier MANUAL DIFF REQ NO Normal [facility] Comment on above: Performed By: #### C BC ####[facility] Rheosspmkk1175 [place] [address]Dr. Chrissy Freddie MCH (RBC) [Entitic mass] 28.1 pg Normal 25.9-34.0 [facility] Comment on above: Performed By: #### C BC ####[facility] Ybaleljcnd7465 [place] [address]Dr. Chrissy Freddie MCHC (RBC) [Mass/Vol] 33.6 g/dL Normal 29.9-35.2 [facility] Comment on above: Performed By: #### C BC ####[facility] Ummezpxebc218[address] [place], [place] [address]Dr. Chrissy Frazier MCV (RBC) [Entitic vol] 83.5 fL Normal 80.0-94.0 [facility] Comment on above: Performed By: #### C BC ####[facility] Vyyiuufmpl9870 [place] [address]Dr. Chrissy Frazier MONO # 0.9 103/ul Critically high 0.3-0.8 [facility] Comment on above: Performed By: #### C BC ####[facility] Dukfxhauwb4887 [place] [address]Dr. Chrissy Frazier Monocytes/100 WBC (Bld) 4.9 % Normal 1.7-12.0 [facility] Comment on above: Performed By: #### C BC ####[facility] Tgmbwnwbno6475 [place] [address]Dr. Chrissy Frazier NEUT # 13.9 103/ul Critically high 1.4-6.5 [facility] Comment on above: Performed By: #### C BC ####[facility] Vhzgepyujq2532 [place] [address]Dr. Chrissy Frazier Neutrophils/100 WBC (Bld) 74.6 % Normal 43.0-75.0 [facility] Comment on above: Performed By: #### C BC ####[facility] Dhxlpnnsxw7659 [place] [address]Dr. Chrissy Frazier Platelet mean volume (Bld) [Entitic vol] 10.5 fL Normal 9.5-13.5 [facility] Comment on above: Performed By: #### C BC ####[facility] Xisvwxchaq1287 [place] [address]Dr. Chrissy Frazier PLT 402 103/ul Normal 150-450 [facility] Comment on above: Performed By: #### C BC ####[facility] Xtanslrcit0914[address] [place], [place] [address]Dr. Chrissy Frazier RBC 5.27 106/ul Normal 4.70-6.10 [facility] Comment on above: Performed By: #### C BC ####[facility] Hpvegvmujp27[address] [place], [place] [address]Dr. Chrissy Frazier WBC 18.6 103/ul Critically high 4.0-11.0 [facility] Comment on above: Performed By: #### C BC ####[facility] Bavwetyorv0525[address] [place], [place] [address]Dr. Chrissy Frazier CULTURE BLOODon 10-23-2022 Microscopic examination of blood, culture Culture Observations: NO GROWTH AT 5 DAYS. Normal [facility] Comment on above: Performed By: #### B LDCX2 ####[facility] Ralsyxwtwq3378[address] [place], [place] [address]Dr. Chrissy Frazier Microscopic examination of blood, culture Culture Observations: NO GROWTH AT 5 DAYS. Normal [facility] Comment on above: Performed By: #### B LDCX1 ####[facility] Nsevuzrucu1648[address] [place], [place] [address]Dr. Chrissy Frazier CULTURE URINEon 10-23-2022 CULTURE URINE Culture Observations: NO GROWTH. Normal [facility] Comment on above: Performed By: #### U RCX ####[facility] Bcvzekjcyw2459 [place] [address]Dr. Chrissy Frazier [facility]on SARS-CoV-2 (COVID-19) RNA RHIANNON+probe Ql (Unsp spec) Not detected Normal NOT DETECTED [facility] Comment on above: Result Comment: When [...] for this test is supported by the [place] of Health and Human Service's declaration that [...] be used). Performed By: #### C VDTBH ####[facility] Dfzayokgku467[address] [place], [place] [address]Dr. Chrissy Frazier INFLUENZA A AND B AGon 10-23 INFLUANEGH SEE BELOW Normal [facility] Comment on above: Result Comment: Nega tive for Flu A protein angiten. Infection due to Flu A cannot be ruled out. Flu A angiten in the sample may be below the detection limit of the test. Performed By: #### I NFLUAB ####[facility] Kqenvnxfdq6032 [place] [address]Dr. Chrissy Frazier INFLUBNEGH SEE BELOW Normal [facility] Comment on above: Result Comment: Nega tive for Flu B protein antigen. Infection due to Flu B cannot be ruled out. Flu B antigen in the sample may be below the detection limit of the test. Performed By: #### I NFLUAB ####[facility] Oyaliibfzx8118 [place] [address]Dr. Chrissy Frazier INFLUENZA A AG Negative Normal NEGATIVE SEE COMMENT [facility] Comment on above: Performed By: #### I NFLUAB ####[facility] Zkajwjdlyr1973[address] [place], [place] [address]Dr. Chrissy Frazier INFLUENZA B AG Negative Normal NEGATIVE SEE COMMENT [facility] Comment on above: Performed By: #### I NFLUAB ####[facility] Pdoknbeziz915[address] [place], [place] [address]Dr. Tishrowan Frazier INTERNAL CONTROLS Within Normal Limits Normal Wi thin Normal Limits [facility] Comment on above: Performed By: #### I NFLUAB ####[facility] Ogobmdrtpg085712 [address] [place], [place] [address]Dr. Tishrowan Freddie LACTATE/LACTIC ACIDon 2021 Lactate [Moles/Vol] 2.1 mmol/L Critically high 0.4-1.9 [facility] Comment on above: Performed By: #### L ACT ####[facility] Bpasyydqnb4714[address] [place], [place] [address]Dr. Chrissy Frazier Lactate [Moles/Vol] 6.9 mmol/L Critically high 0.4-1.9 [facility] Comment on above: Performed By: #### L ACT ####[facility] Nwhwtxjdex0743[address] [place], [place] [address]Dr. Chrissy Freddie LIPASEon 10-23-2022 Lipase [Catalytic activity/Vol] 72.0 U/L Critically low 73.0-393.0 [facility] Comment on above: Performed By: #### C OSWALD ADAIR AMY ####[facility] Atacbfgefa4977[address] [place], [place] [address]Dr. Chrissy Frazier PROF 14(COMP METB)on 022 Albumin [Mass/Vol] 3.9 g/dL Normal 3.4-5.0 [facility] Comment on above: Performed By: #### C MANA LIPBean, TERRENCE ####[facility] Ztwhgfiziu5822 [place] [address]Dr. Chrissy Frazier Albumin/Globulin [Mass ratio] 0.9 {ratio} Normal [facility] Comment on above: Performed By: #### C MANA LIPA, TERRENCE ####[facility] Wrghgfztnl5594 [place] [address]Dr. Chrissy Frazier ALP [Catalytic activity/Vol] 82 U/L Normal 46-116 [facility] Comment on above: Performed By: #### C MANA LIPA, TERRENCE ####[facility] Bpirrozkvn100[address] [place], [place] [address]Dr. Chrissy Freddie ALT [Catalytic activity/Vol] 25 U/L Normal 16-63 [facility] Comment on above: Performed By: #### C MANA LIPA, TERRENCE ####[facility] Rhogckcuij5895[address] [place], [place] [address]Dr. Chrissy Frazier Anion gap [Moles/Vol] 18.1 mmol/L Normal [facility] Comment on above: Performed By: #### C MP LIPA, TERRENCE ####[facility] Wcobfviziy6201[address] [place], [place] [address]Dr. Chrissy Frazier AST [Catalytic activity/Vol] 17 U/L Normal 15-37 [facility] Comment on above: Performed By: #### C MANA LIPA, TERRENCE ####[facility] Jsaebmjchu8[address] [place], [place] [address]Dr. Chrissy Frazier Bilirubin [Mass/Vol] 0.5 mg/dL Normal 0.2-1.0 [facility] Comment on above: Performed By: #### C MP, LIPA, TERRENCE ####[facility] Qbzvphkdsz3712[address] [place], [place] [address]Dr. Chrissy Frazier Calcium [Mass/Vol] 9.1 mg/dL Normal 8.5-10.1 [facility] Comment on above: Performed By: #### C MP, LIPA, TERRENCE ####[facility] Jaijktshrt5914[address] [place], [place] [address]Dr. Chrissy Frazier Chloride [Moles/Vol] 101 mmol/L Normal 98-107 [facility] Comment on above: Performed By: #### C TESSA ADAIRA, TERRENCE ####[facility] Lbmpuitqqs0653 [place] [address]Dr. Chrissy Frazier CO2 [Moles/Vol] 19.2 mmol/L Critically low 21.0-32.0 [facility] Comment on above: Performed By: #### C TESAS ADAIRA, TERRENCE ####[facility] Tlekazywru1588 [place] [address]Dr. Chrissy Frazier Creatinine [Mass/Vol] 1.72 mg/dL Critically high 0.70-1.30 [facility] Comment on above: Performed By: #### C TESSA ADAIRA, TERRENCE ####[facility] Acazxyivzq8878[address] [place], [place] [address]Dr. Chrissy Frazier EGFR-AF ARMENIAN 56 mL/min/1.73m2 Critically low >=60 [facility] Comment on above: Performed By: #### C TESSA ADAIRA, TERRENCE ####[facility] Vwryuocyxr5134[address] [place], [place] [address]Dr. Chrissy Frazier EGFR-NON AF ARMENIAN 46 mL/min/1.73m2 Critically low >=60 [facility] Comment on above: Performed By: #### C OSWALD ADAIR, TERRENCE ####[facility] Kfsdyhrggy0584[address] [place], [place] [address]Dr. Chrissy Frazier Globulin (S) [Mass/Vol] 4.2 g/dL Normal [facility] Comment on above: Performed By: #### C TESSA ADAIRA, TERRENCE ####[facility] Gwibkrffwo7391 [place] [address]Dr. Chrissy Frazier Glucose [Mass/Vol] 126 mg/dL Critically high 74-106 T [facility] Comment on above: Performed By: #### C TESSA ADAIRA, TERRENCE ####[facility] Kwebjesfpu2562[address] [place], [place] [address]Dr. Chrissy Frazier Potassium [Moles/Vol] 3.3 mmol/L Critically low 3.5-5.1 [facility] Comment on above: Performed By: #### C MANA LIPA, TERRENCE ####[facility] Mgloemslgc0785 [place] [address]Dr. Chrissy Frazier Protein [Mass/Vol] 8.1 g/dL Normal 6.4-8.[address] [facility] Comment on above: Performed By: #### C OSWALD ADAIR, TERRENCE ####[facility] Beqxlitksb7003 [place] [address]Dr. Chrissy Frazier Sodium [Moles/Vol] 135 mmol/L Critically low 136-145 Th [facility] Comment on above: Performed By: #### C OSWALD ADAIR, TERRENCE ####[facility] Udpbpcubbt4986 [place] [address]Dr. Chrissy Frazier Urea nitrogen [Mass/Vol] 13.0 mg/dL Normal 7.0-18.0 [facility] Comment on above: Performed By: #### C OSWALD ADAIR, TERRENCE ####[facility] Rmhcptwzhh4491[address] [place], [place] [address]Dr. Chrissy Frazier Urea nitrogen/Creatinine [Mass ratio] 7.6 mg/mg Normal [facility] Comment on above: Performed By: #### C OSWALD ADAIR, TERRENCE ####[facility] Uzdvhctoqf8[address] [place], [place] [address]Dr. Chrissy Frazier UA RANDOM W/MICROSCOPICon BACTERIA NONE SEEN Normal NONE SEEN [facility] Comment on above: Performed By: #### U AMIC ####[facility] Hwelwefuvm75[address] [place], [place] [address]Dr. Chrissy Frazier Bilirubin Ql (U) Negative Normal NEGATIVE [facility] Comment on above: Performed By: #### U AMIC ####[facility] Lrteeoohhv6325[address] [place], [place] [address]Dr. Chrissy Frazier CAST NONE SEEN Normal NONE SEEN [facility] Comment on above: Performed By: #### U AMIC ####[facility] Wthpoznkaa3471[address] [place], [place] [address]Dr. Chrissy Frazier Clarity (U) CLEAR Normal CLEAR [facility] Comment on above: Performed By: #### U AMIC ####[facility] Pnzrgrthot6922[address] [place], [place] [address]Dr. Chrissy Frazier Color (U) LT. YELLOW Normal YELLOW [facility] Comment on above: Performed By: #### U AMIC ####[facility] Igurslmhuh6033 [place] [address]Dr. Chrissy Freddie Crystals LM Nom (Urine sed) NONE SEEN Normal NONE SEEN [facility] Comment on above: Performed By: #### U AMIC ####[facility] Funefmtlsd2223 [place] [address]Dr. Chrissy Frazier Epithelial cells LM Ql (Urine sed) FEW Abnormal NONE SEEN /RARE [facility] Comment on above: Performed By: #### U AMIC ####[facility] Zpebxqvozd9535[address] [place], [place] [address]Dr. Chrissy Frazier Glucose Ql (U) Negative Normal NEGATIVE [facility] Comment on above: Performed By: #### U AMIC ####[facility] Dvcawtpxsr36[address] [place], [place] [address]Dr. Chrissy Frazier Hemoglobin Ql (U) Negative Normal NEGATIVE [facility] Comment on above: Performed By: #### U AMIC ####[facility] Jqovqnzsur9198[address] [place], [place] [address]Dr. Chrissy Frazier Ketones Ql (U) 15 mg/dl Abnormal NEGATIVE [facility] Comment on above: Performed By: #### U AMIC ####[facility] Gmqapqtjzk145[address] [place], [place] [address]Dr. Chrissy Frazier LEUKOCYTES Negative Normal NEGATIVE [facility] Comment on above: Performed By: #### U AMIC ####[facility] Qfdesywaat9901[address] [place], [place] [address]Dr. Chrissy Frazier MUCOUS NONE SEEN Normal NONE SEEN [facility] Comment on above: Performed By: #### U AMIC ####[facility] Ijdkrtmgte4777[address] [place], [place] [address]Dr. Chrissy Frazier Nitrite Ql (U) Negative Normal NEGATIVE [facility] Comment on above: Performed By: #### U AMIC ####[facility] Gvesmqfpeq1817[address] [place], [place] [address]Dr. Chrissy Frazier pH (U) 6.0 [pH] Normal 5-9 [facility] Comment on above: Performed By: #### U AMIC ####[facility] Umnonsreee0527 [place] [address]Dr. Chrissy Frazier RBC 0-2 Normal 0-2 [facility] Comment on above: Performed By: #### U AMIC ####[facility] Qqghuuhapy3641 [place] [id number]. Chrissy Frazier SPEC GRAVITY 1.010 Normal 1.005-<=1.025 [facility] Comment on above: Performed By: #### U AMIC ####[facility] Xcnubraaqz4919 [place] [address]Dr. Chrissy Frazier UA PROTEIN Negative Normal NEGATIVE/ TRACE [facility] Comment on above: Performed By: #### U AMIC ####[facility] Seiedoccnn9613 [place] [address]Dr. Chrissy Frazier Urobilinogen Qn (U) 0.2 {Estrellita'U}/dL Normal 0.2 - 1. 0 [facility] Comment on above: Performed By: #### U AMIC ####[facility] Wyepfusngu9793 [place] [address]Dr. Chrissy Frazier WBC NONE SEEN Normal NONE SEEN [facility] Comment on above: Performed By: #### U AMIC ####[facility] Xdemusvnhp4814 [place] [id number]. Chrissy Frazier AMYLASEon 10-22-2022 Amylase [Catalytic activity/Vol] 28 U/L Normal 25-115 [facility] Comment on above: Performed By: #### L IPA, CMP, TERRENCE ####[facility] Ibmigwizen3564 [place] [id number]. Tishrowan Frazier CBC AUTO DIFFon 10-22-2022 BASO # 0.0 103/ul Normal 0.0-0.1 [facility] Comment on above: Performed By: #### C BC ####[facility] Vhyvefglvx2942 [place] [address]Dr. Chrissy Frazier Basophils/100 WBC (Bld) 0.2 % Normal 0.2-2.0 [facility] Comment on above: Performed By: #### C BC ####[facility] Nrucvlqnlz7397[address] [place], [place] [address]Dr. Chrissy Frazier EO # 0.0 103/ul Normal 0.0-0.7 [facility] Comment on above: Performed By: #### C BC ####[facility] Xcyjpqgszg1561[address] [place], [place] [address]Dr. Chrissy Frazier Eosinophils/100 WBC (Bld) 0.1 % Critically low 0.9-7.0 [facility] Comment on above: Performed By: #### C BC ####[facility] Cwgzpvyxnc6835[address] [place], [place] [address]Dr. Chrissy Frazier Erythrocyte distribution width (RBC) [Ratio] 14.4 % Normal 11.0-15.0 [facility] Comment on above: Performed By: #### C BC ####[facility] Rkunhjhqck6101[address] [place], [place] [address]Dr. Chrissy Frazier Hematocrit (Bld) [Volume fraction] 45.2 % Normal 42.0-54.0 [facility] Comment on above: Performed By: #### C BC ####[facility] Nyeweooljg074[address] [place], [place] [address]Dr. Chrissy Frazier Hemoglobin (Bld) [Mass/Vol] 15.4 g/dL Normal 14.0-18.0 [facility] Comment on above: Performed By: #### C BC ####[facility] Fvvrcroxos1877[address] [place], [place] [address]DrNancy Frazier IG # 0.07 10e3/ul Critically high 0.00-0.03 [facility] Comment on above: Performed By: #### C BC ####[facility] Omiqnrykgm5659[address] [place], [place] [address]Dr. Chrissy Frazier IG % 0.4 % Normal 0.0-0.5 [facility] Comment on above: Performed By: #### C BC ####[facility] Zosscirmft7[address] [place], [place] [address]Dr. Chrissy Frazier LYMPH # 2.0 103/ul Normal 1.2-3.8 [facility] Comment on above: Performed By: #### C BC ####[facility] Mrqynybhjw7104 [place] [address]Dr. Chrissy Frazier Lymphocytes/100 WBC (Bld) 12.2 % Critically low 20.5-60.0 [facility] Comment on above: Performed By: #### C BC ####[facility] Bjxmbsubrq3074 [place] [address]DrNancy Frazier MANUAL DIFF REQ NO Normal [facility] Comment on above: Performed By: #### C BC ####[facility] Azkzpykfoj5437 [place] [address]Dr. Chrissy Frazier MCH (RBC) [Entitic mass] 28.3 pg Normal 25.9-34.0 [facility] Comment on above: Performed By: #### C BC ####[facility] Tpykzechdj28[address] [place], [place] [address]Dr. Chrissy Frazier MCHC (RBC) [Mass/Vol] 34.1 g/dL Normal 29.9-35.2 [facility] Comment on above: Performed By: #### C BC ####[facility] Bgdfwawcgx9[address] [place], [place] [address]DrNancy Frazier MCV (RBC) [Entitic vol] 82.9 fL Normal 80.0-94.0 [facility] Comment on above: Performed By: #### C BC ####[facility] Zkrfhgekim6[address] [place], [place] [address]Dr. Chrissy Frazier MONO # 0.3 103/ul Normal 0.3-0.8 [facility] Comment on above: Performed By: #### C BC ####[facility] Vjzaikwbfa35[address] [place], [place] [address]DrNancy Frazier Monocytes/100 WBC (Bld) 2.0 % Normal 1.7-12.0 [facility] Comment on above: Performed By: #### C BC ####[facility] Tglzwrkywn7215[address] [place], [place] [address]Dr. Chrissy Frazier NEUT # 14.0 103/ul Critically high 1.4-6.5 [facility] Comment on above: Performed By: #### C BC ####[facility] Cerchkbxku7576 [place] [address]Dr. Chrissy Frazier Neutrophils/100 WBC (Bld) 85.1 % Critically high 43.0-75.0 [facility] Comment on above: Performed By: #### C BC ####[facility] Swneezlcza3729 [place] [address]Dr. Chrissy Freddie Platelet mean volume (Bld) [Entitic vol] 10.6 fL Normal 9.5-13.5 [facility] Comment on above: Performed By: #### C BC ####[facility] Wigtaxrtby9713 [place] [address]Dr. Chrissy Freddie PLT 411 103/ul Normal 150-450 [facility] Comment on above: Performed By: #### C BC ####[facility] Xqgkbxnify8369 [place] [address]Dr. Tishrowan Freddie RBC 5.45 106/ul Normal 4.70-6.10 [facility] Comment on above: Performed By: #### C BC ####[facility] Ujvvqxobmq6672 [place] [address]Dr. Chrissy Freddie WBC 16.5 103/ul Critically high 4.0-11.0 [facility] Comment on above: Performed By: #### C BC ####[facility] Mntgxecucg5223 [place] [address]Dr. Chrissy Frazier LIPASEon 10-22-2022 Lipase [Catalytic activity/Vol] 57.0 U/L Critically low 73.0-393.0 [facility] Comment on above: Performed By: #### L IPA CMP, TERRENCE ####[facility] Zkerrnpguw8989 [place] [address]Dr. Chrissy Frazier PROF 14(COMP METB)on 022 Albumin [Mass/Vol] 4.2 g/dL Normal 3.4-5.0 [facility] Comment on above: Performed By: #### L IPA, CMP, TERRENCE ####[facility] Scopgrwqnb9126 [place] [address]Dr. Chrissy Frazier Albumin/Globulin [Mass ratio] 1.0 {ratio} Normal [facility] Comment on above: Performed By: #### L IPA, CMP, TERRENCE ####[facility] Aqphsrowqb8666 [place] [address]Dr. Chrissy Freddie ALP [Catalytic activity/Vol] 92 U/L Normal 46-116 [facility] Comment on above: Performed By: #### L IPA, CMP, TERRENCE ####[facility] Pegdaztrvc6[address] [place], [place] [address]Dr. Chrissy Freddie ALT [Catalytic activity/Vol] 26 U/L Normal 16-63 [facility] Comment on above: Performed By: #### L IPA CMP, TERRENCE ####[facility] Fvkgqagbtg[address] [place], [place] [address]Dr. Chrissy Frazier Anion gap [Moles/Vol] 19.5 mmol/L Normal [facility] Comment on above: Performed By: #### L IPA, CMP, TERRENCE ####[facility] Yiktpeuaxh09[address] [place], [place] [address]Dr. Tishrowan Frazier AST [Catalytic activity/Vol] 19 U/L Normal 15-37 [facility] Comment on above: Performed By: #### L IPA, CMP, TERRENCE ####[facility] Uezymivkas4415 [place] [address]Dr. Chrissy Frazier Bilirubin [Mass/Vol] 0.7 mg/dL Normal 0.2-1.0 [facility] Comment on above: Performed By: #### L IPA, CMP, TERRENCE ####[facility] Byacpxqdxm2206 [place] [address]Dr. Chrissy Frazier Calcium [Mass/Vol] 9.6 mg/dL Normal 8.5-10.1 [facility] Comment on above: Performed By: #### L IPA, CMP, TERRENCE ####[facility] [facility] [address] [address]Dr. Chrissy Frazier Chloride [Moles/Vol] 102 mmol/L Normal 98-107 [facility] Comment on above: Performed By: #### L IPA, CMP, TERRENCE ####[facility] [address]vcmabazyr[address] [address]Dr. Tishrowan Freddie CO2 [Moles/Vol] 19.1 mmol/L Critically low 21.0-32.0 [facility] Comment on above: Performed By: #### L IPA, CMP, TERRENCE ####[facility] Oenrcnlvkm3[address] [place], [place] [address]Dr. Chrissy Frazier Creatinine [Mass/Vol] 1.47 mg/dL Critically high 0.70-1.30 [facility] Comment on above: Performed By: #### L IPA, CMP, TERRENCE ####[facility] Kfetcaqrno4[address] [place], [place] [address]Dr. Chrissy Frazier EGFR-AF ARMENIAN >60 Normal >=60 [facility] Comment on above: Performed By: #### L IPA, CMP, TERRENCE ####[facility] Inetmrxlmz9225[address] [place], [place] [address]Dr. Chrissy Frazier EGFR-NON AF ARMENIAN 56 mL/min/1.73m2 Critically low >=60 [facility] Comment on above: Performed By: #### L IPA, CMP, TERRENCE ####[facility] Kokahdmmii[address] [place], [place] [address]Dr. Chrissy Frazier Globulin (S) [Mass/Vol] 4.3 g/dL Normal [facility] Comment on above: Performed By: #### L IPA, CMP, TERRENCE ####[facility] Wlxwiocfob83[address] [place], [place] [address]Dr. Chrissy Frazier Glucose [Mass/Vol] 189 mg/dL Critically high 74-[address] [facility] Comment on above: Performed By: #### L IPA, CMP, TERRENCE ####[facility] Wmprvmadxo[address] [place], [place] [address]Dr. Chrissy Frazier Potassium [Moles/Vol] 4.6 mmol/L Normal 3.5-5.1 [facility] Comment on above: Performed By: #### L IPA, CMP, TERRENCE ####[facility] Koyzynjrgi[address] [place], [place] [address]Dr. Chrissy Frazier Protein [Mass/Vol] 8.5 g/dL Critically high 6.4-8.[address] [facility] Comment on above: Performed By: #### L IPA CMP, TERRENCE ####[facility] [address] [address]Dr. Chrissy Frazier Sodium [Moles/Vol] 136 mmol/L Normal 136-145 [facility] Comment on above: Performed By: #### L IPA CMP, TERRENCE ####[facility] [address]wyd[address] [address]Dr. Chrissy Frazier Urea nitrogen [Mass/Vol] 16.0 mg/dL Normal 7.0-18.0 [facility] Comment on above: Performed By: #### L IPA CMP, TERRENCE ####[facility] Kmfvaewllp3[address] [place], [place] [address]Dr. Chrissy Frazier Urea nitrogen/Creatinine [Mass ratio] 10.9 mg/mg Normal [facility] Comment on above: Performed By: #### L IPA CMP, TERRENCE ####[facility] Fnttwckpqo77[address] [place], [place] [address]Dr. Chrissy Frazier AMYLASEon 09-03-2022 Amylase [Catalytic activity/Vol] 25 U/L Normal 25-115 [facility] Comment on above: Performed By: #### L IPA TERRENCE, CMP ####[facility] Xclvidadmp9926[address] [place], [place] [address]Dr. Chrissy Frazier CBC AUTO DIFFon 09-03-2022 BASO # 0.0 103/ul Normal 0.0-0.1 [facility] Comment on above: Performed By: #### C BC ####[facility] Qlixywjyit[address] [place], [place] [address]Dr. Chrissy Frazier Basophils/100 WBC (Bld) 0.1 % Critically low 0.2-2.0 [facility] Comment on above: Performed By: #### C BC ####[facility] [address] [address]Dr. Chrissy Freddie EO # 0.0 103/ul Normal 0.0-0.7 [facility] Comment on above: Performed By: #### C BC ####[facility] N[address]zuot[address] [address]Dr. Chrissy Frazier Eosinophils/100 WBC (Bld) 0.1 % Critically low 0.9-7.0 [facility] Comment on above: Performed By: #### C BC ####[facility] Rwuaqbmpjf7[address] [place], [place] [address]Dr. Chrissy Frazier Erythrocyte distribution width (RBC) [Ratio] 14.0 % Normal 11.0-15.0 [facility] Comment on above: Performed By: #### C BC ####[facility] Sfgmbmovzi0821[address] [place], [place] [address]Dr. Chrissy Frazier Hematocrit (Bld) [Volume fraction] 42.5 % Normal 42.0-54.0 [facility] Comment on above: Performed By: #### C BC ####[facility] Nxiapzhkxh12[address] [place], [place] [address]Dr. Chrissy Frazier Hemoglobin (Bld) [Mass/Vol] 14.1 g/dL Normal 14.0-18.0 [facility] Comment on above: Performed By: #### C BC ####[facility] Lczmiekong[address] [place], [place] [address]Dr. Chrissy Frazier IG # 0.06 10e3/ul Critically high 0.00-0.03 [facility] Comment on above: Performed By: #### C BC ####[facility] Wwowjnmgme3357[address] [place], [place] [address]Dr. Chrissy Frazier IG % 0.4 % Normal 0.0-0.5 [facility] Comment on above: Performed By: #### C BC ####[facility] Scwxojnrof3937[address] [place], [place] [address]Dr. Chrissy Frazier LYMPH # 2.5 103/ul Normal 1.2-3.8 [facility] Comment on above: Performed By: #### C BC ####[facility] Jmetclaiqf[address] [place], [place] [address]Dr. Chrissy Frazier Lymphocytes/100 WBC (Bld) 16.3 % Critically low 20.5-60.0 [facility] Comment on above: Performed By: #### C BC ####[facility] [address] [id number]. Chrissy Frazier MANUAL DIFF REQ NO Normal [facility] Comment on above: Performed By: #### C BC ####[facility] Lmkddexyeg[address] [id number]. Chrissy Frazier MCH (RBC) [Entitic mass] 28.1 pg Normal 25.9-34.0 [facility] Comment on above: Performed By: #### C BC ####[facility] Nrthltnfsc[address] [id number]. Chrissy Frazier MCHC (RBC) [Mass/Vol] 33.2 g/dL Normal 29.9-35.2 [facility] Comment on above: Performed By: #### C BC ####[facility] Shccgdscgk0[address] [place], [place] [address]Dr. Chrissy Frazier MCV (RBC) [Entitic vol] 84.8 fL Normal 80.0-94.0 [facility] Comment on above: Performed By: #### C BC ####[facility] Sh[address]fxlppf[address] [place], [place] [address]Dr. Chrissy Frazier MONO # 1.1 103/ul Critically high 0.3-0.8 [facility] Comment on above: Performed By: #### C BC ####[facility] Fhugpzmrbo2013[address] [place], [place] [address]Dr. Chrissy Frazier Monocytes/100 WBC (Bld) 7.4 % Normal 1.7-12.0 [facility] Comment on above: Performed By: #### C BC ####[facility] Ctwlntkopw[address] [place], [place] [address]Dr. Chrissy Frazier NEUT # 11.5 103/ul Critically high 1.4-6.5 [facility] [place] Comment on above: Performed By: #### C BC ####[facility] Virdqojpqv88[address] [place], [place] [address]Dr. Chrissy Frazier Neutrophils/100 WBC (Bld) 75.7 % Critically high 43.0-75.0 [facility] Comment on above: Performed By: #### C BC ####[facility] [address] [address]Dr. Chrissy Frazier Platelet mean volume (Bld) [Entitic vol] 10.6 fL Normal 9.5-13.5 [facility] Comment on above: Performed By: #### C BC ####[facility] [address]sb[address] [address]Dr. Chrissy Frazier PLT 310 103/ul Normal 150-450 [facility] Comment on above: Performed By: #### C BC ####[facility] M[address]infvna[address] [address]Dr. Chrissy Frazier RBC 5.01 106/ul Normal 4.70-6.10 [facility] Comment on above: Performed By: #### C BC ####[facility] [address]xtzhk[address] [address]Dr. Chrissy Frazier WBC 15.2 103/ul Critically high 4.0-11.0 [facility] Comment on above: Performed By: #### C BC ####[facility] Hburscooqb07[address] [place], [place] [address]Dr. Chrissy Frazier LIPASEon 09-03-2022 Lipase [Catalytic activity/Vol] 46.0 U/L Critically low 73.0-393.0 [facility] Comment on above: Performed By: #### L TERRENCE VICTORIA, CMP ####[facility] Qbfvppffbx6938[address] [place], [place] [address]DrNancy Frazier PROF 14(COMP METB)on 022 Albumin [Mass/Vol] 3.7 g/dL Normal 3.4-5.0 [facility] Comment on above: Performed By: #### L TERRENCE VICTORIA, CMP ####[facility] Qbbtgnnqiy5456[address] [place], [place] [address]Dr. Chrissy Frazier Albumin/Globulin [Mass ratio] 1.0 {ratio} Normal [facility] Comment on above: Performed By: #### L TERRENCE VICTORIA, CMP ####[facility] Xgworbeqtj8022[address] [place], [place] [address]Dr. Chrissy Frazier ALP [Catalytic activity/Vol] 65 U/L Normal 46-116 [facility] Comment on above: Performed By: #### L TERRENCE VICTORIA, CMP ####[facility] [address]tuj[address] [address]Dr. Chrissy Frazier ALT [Catalytic activity/Vol] 42 U/L Normal 16-63 [facility] Comment on above: Performed By: #### L TERRENCE VICTORIA, CMP ####[facility] V[address]kmwai[address] [address]Dr. Chrissy Frazier Anion gap [Moles/Vol] 14.4 mmol/L Normal [facility] Comment on above: Performed By: #### L TERRENCE VICTORIA, CMP ####[facility] Pknjwobexl[address] [place], [place] [address]Dr. Chrissy Frazier AST [Catalytic activity/Vol] 16 U/L Normal 15-37 [facility] Comment on above: Performed By: #### L TERRENCE VICTORIA, CMP ####[facility] Zsgfnbfhlr38[address] [place], [place] [address]Dr. Chrissy Frazier Bilirubin [Mass/Vol] 0.4 mg/dL Normal 0.2-1.0 [facility] Comment on above: Performed By: #### L TERRENCE VICTORIA, CMP ####[facility] Gxbgjjmlfd[address] [place], [place] [address]Dr. Chrissy Frazier Calcium [Mass/Vol] 8.7 mg/dL Normal 8.5-10.1 [facility] Comment on above: Performed By: #### L TERRENCE VICTORIA, CMP ####[facility] Crdptochrt24[address] [place], [place] [address]Dr. Chrissy Frazier Chloride [Moles/Vol] 105 mmol/L Normal 98-107 [facility] Comment on above: Performed By: #### L TERRENCE VICTORIA, CMP ####[facility] Sojahgjcql[address] [place], [place] [address]Dr. Chrissy Frazier CO2 [Moles/Vol] 22.6 mmol/L Normal 21.0-32.0 [facility] Comment on above: Performed By: #### L TERRENCE VICTORIA, CMP ####[facility] [address]hcflx[address] [place] [id number]. Chrissy Frazier Creatinine [Mass/Vol] 1.11 mg/dL Normal 0.70-1.30 [facility] Comment on above: Performed By: #### L TERRENCE VICTORIA, CMP ####[facility] [address]ie[address] [address]Dr. Chrissy Frazier EGFR-AF ARMENIAN >60 Normal >=60 [facility] Comment on above: Performed By: #### L TERRENCE VICTORIA, CMP ####[facility] Ozwwpsbnzl025[address] [place] [address]Dr. Chrissy Frazier EGFR-NON AF ARMENIAN >60 Normal >=60 [facility] Comment on above: Performed By: #### L TERRENCE VICTORIA, CMP ####[facility] [address]trzf[address] [address]Dr. Chrissy Frazier Globulin (S) [Mass/Vol] 3.7 g/dL Normal [facility] Comment on above: Performed By: #### L TERRENCE VICTORIA, CMP ####[facility] Fu[address]fwiuza[address] [address]Dr. Chrissy Frazier Glucose [Mass/Vol] 121 mg/dL Critically high 74-[address] [facility] Comment on above: Performed By: #### L TERRENCE VICTORIA, CMP ####[facility] Q[address]cpqigwfq[address] [address]Dr. Chrissy Frazier Potassium [Moles/Vol] 4.0 mmol/L Normal 3.5-5.1 [facility] Comment on above: Performed By: #### L TERRENCE VICTORIA, CMP ####[facility] Nxipgmusiv[address] [address]Dr. Chrissy Frazier Protein [Mass/Vol] 7.4 g/dL Normal 6.4-8.[address] [facility] Comment on above: Performed By: #### L TERRENCE VICTORIA, CMP ####[facility] [address]bdm[address] [address]Dr. Chrissy Frazier Sodium [Moles/Vol] 138 mmol/L Normal 136-[address] [facility] Comment on above: Performed By: #### L IPA, TERRENCE, CMP ####[facility] [address]tenfkj[address] [address]Dr. Chrissy Frazier Urea nitrogen [Mass/Vol] 6.0 mg/dL Critically low 7.0-18.0 [facility] Comment on above: Performed By: #### L IPA, TERRENCE, CMP ####[facility] Ixqbnaatfi[address] [place], [place] [address]Dr. Chrissy Frazier Urea nitrogen/Creatinine [Mass ratio] 5.4 mg/mg Normal [facility] Comment on above: Performed By: #### L IPA, TERRENCE, CMP ####[facility] Ofnedkbtit4424[address] [place], [place] [address]Dr. Chrissy Freddie AMYLASEon 09-02-2022 Amylase [Catalytic activity/Vol] 29 U/L Normal 25-115 [facility] Comment on above: Performed By: #### A MY, CMP, LIPA ####[facility] Cnqmgbmhpe[address] [place], [place] [address]Dr. Chrissy Frazier CBC AUTO DIFFon 09-02-2022 BASO # 0.1 103/ul Normal 0.0-0.1 [facility] Comment on above: Performed By: #### C BC ####[facility] Osjevxkpwc[address] [place], [place] [address]Dr. Chrissy Frazier Basophils/100 WBC (Bld) 0.4 % Normal 0.2-2.0 [facility] Comment on above: Performed By: #### C BC ####[facility] Vqiqygyttk26[address] [place], [place] [address]Dr. Chrissy Frazier EO # 0.1 103/ul Normal 0.0-0.7 [facility] Comment on above: Performed By: #### C BC ####[facility] Sfujqlswnx9[address] [place], [place] [address]Dr. Chrissy Freddie Eosinophils/100 WBC (Bld) 0.7 % Critically low 0.9-7.0 [facility] Comment on above: Performed By: #### C BC ####[facility] Jkvjnkqcjx039[address] [place], [place] [address]Dr. Chrissy Frazier Erythrocyte distribution width (RBC) [Ratio] 13.7 % Normal 11.0-15.0 [facility] Comment on above: Performed By: #### C BC ####[facility] [address]hlppo[address] [address]Dr. Chrissy Frazier Hematocrit (Bld) [Volume fraction] 48.3 % Normal 42.0-54.0 [facility] Comment on above: Performed By: #### C BC ####[facility] Ze[address]vflsvf[address] [address]Dr. Chrissy Frazier Hemoglobin (Bld) [Mass/Vol] 16.0 g/dL Normal 14.0-18.0 [facility] Comment on above: Performed By: #### C BC ####[facility] [address]osfrdh[address] [place] [address]Dr. Chrissy Frazier IG # 0.09 10e3/ul Critically high 0.00-0.03 [facility] Comment on above: Performed By: #### C BC ####[facility] Plpwfvvekc0813[address] [place], [place] [address]Dr. Chrissy Frazier IG % 0.5 % Normal 0.0-0.5 [facility] Comment on above: Performed By: #### C BC ####[facility] Xnmrnjkeun8[address] [place], [place] [address]Dr. Chrissy Frazier LYMPH # 3.7 103/ul Normal 1.2-3.8 [facility] Comment on above: Performed By: #### C BC ####[facility] Jkbfszdwmx4969[address] [place], [place] [address]Dr. Chrissy Frazier Lymphocytes/100 WBC (Bld) 21.5 % Normal 20.5-60.0 [facility] Comment on above: Performed By: #### C BC ####[facility] Gbkrxbbibi11[address] [place], [place] [address]Dr. Chrissy Freddie MANUAL DIFF REQ NO Normal [facility] Comment on above: Performed By: #### C BC ####[facility] Qnfbywvqmt7[address] [place], [place] [address]Dr. Chrissy Freddie MCH (RBC) [Entitic mass] 28.1 pg Normal 25.9-34.0 [facility] Comment on above: Performed By: #### C BC ####[facility] Y[address]akzjbxm[address] [address]Dr. Chrissy Frazier MCHC (RBC) [Mass/Vol] 33.1 g/dL Normal 29.9-35.2 [facility] Comment on above: Performed By: #### C BC ####[facility] Kpssitnnyx86[address] [place], [place] [address]Dr. Chrissy Freddie MCV (RBC) [Entitic vol] 84.7 fL Normal 80.0-94.0 [facility] Comment on above: Performed By: #### C BC ####[facility] Watqoanhzb9[address] [place], [place] [address]Dr. Chrissy Freddie MONO # 0.7 103/ul Normal 0.3-0.8 [facility] Comment on above: Performed By: #### C BC ####[facility] Eaaflwqlue[address] [place], [place] [address]Dr. Tishrowan Frazier Monocytes/100 WBC (Bld) 4.2 % Normal 1.7-12.0 [facility] Comment on above: Performed By: #### C BC ####[facility] Mwqgqkgwxp32[address] [place], [place] [address]Dr. Chrissy Frazier NEUT # 12.4 103/ul Critically high 1.4-6.5 [facility] Comment on above: Performed By: #### C BC ####[facility] Aidqodmzws023[address] [place], [place] [address]Dr. Tishrowan Frazier Neutrophils/100 WBC (Bld) 72.7 % Normal 43.0-75.0 [facility] Comment on above: Performed By: #### C BC ####[facility] Esubrzdagg[address] [place], [place] [address]Dr. Chrissy Frazier Platelet mean volume (Bld) [Entitic vol] 10.9 fL Normal 9.5-13.5 [facility] Comment on above: Performed By: #### C BC ####[facility] Okfecouseu[address] [place], [place] [address]Dr. Chrissy Frazier PLT 386 103/ul Normal 150-450 [facility] Comment on above: Performed By: #### C BC ####[facility] [address]zjqppjmls42[address] [place], [place] [address]Wm. Chrissy Frazier RBC 5.70 106/ul Normal 4.70-6.10 [facility] Comment on above: Performed By: #### C BC ####[facility] Mnlogaczxm0965 [place], [place] [address]Xj. Chrissy Frazier WBC 17.0 103/ul Critically high 4.0-11.0 [facility] Comment on above: Performed By: #### C BC ####[facility] E[address]okjqol[address] [place] [id number]. Chrissy Frazier Covid-19 PCR (CVDTB)on 08-21 SARS-CoV-2 (COVID-19) RNA RHIANNON+probe Ql (Unsp spec) Not detected Normal NOT DETECTED [facility] Comment on above: Result Comment: When [...] for this test is supported by the [place] of [employer] and Human Service's declaration that [...] be used). Performed By: #### C VDTBH ####[facility] Mpsccasrfc7[address] [place], [place] [address]Tp. Chrissy Frazier LACTATE/LACTIC ACIDon 2021 Lactate [Moles/Vol] 7.1 mmol/L Critically high 0.4-1.9 [facility] Comment on above: Performed By: #### L ACT ####[facility] [address]pjlye[address] [place] [address]Dr. Chrissy Frazier Lactate [Moles/Vol] 8.6 mmol/L Critically high 0.4-1.9 [facility] Comment on above: Performed By: #### L ACT ####[facility] [address]wq[address] [place] [address]Dr. Chrissy Frazier LIPASEon 09-02-2022 Lipase [Catalytic activity/Vol] 60.0 U/L Critically low 73.0-393.0 [facility] Comment on above: Performed By: #### A MY, CMP, LIPA ####[facility] Qjtyilnmjs[address] [place], [place] [address]Dr. Chrissy Frazier POINT OF CARE GLUCOSEon 08-21 Glucose [Mass/Vol] 140 mg/dL Critically high 74-[address] [facility] Comment on above: Performed By: #### P OCGLUC ####[facility] Snrzmgalvf8[address] [place], [place] [address]Dr. Chrissy Frazier PROF 14(COMP METB)on 022 Albumin [Mass/Vol] 4.3 g/dL Normal 3.4-5.0 [facility] Comment on above: Performed By: #### A MY, CMP, LIPA ####[facility] Xwcpisaqnx[address] [place] [address]Dr. Chrsisy Frazier Albumin/Globulin [Mass ratio] 1.0 {ratio} Normal [facility] Comment on above: Performed By: #### A MY, CMP, LIPA ####[facility] Egkxjymgzi35[address] [place] [address]Dr. Chrissy Frazier ALP [Catalytic activity/Vol] 82 U/L Normal 46-116 [facility] Comment on above: Performed By: #### A MY, CMP, LIPA ####[facility] Sngfvpxejo58[address] [place] [address]Dr. Chrissy Frazier ALT [Catalytic activity/Vol] 48 U/L Normal 16-63 [facility] Comment on above: Performed By: #### A MY, CMP, LIPA ####[facility] Ocyhskcvex[address] [place] [address]Dr. Chrissy Frazier Anion gap [Moles/Vol] 25.3 mmol/L Normal [facility] Comment on above: Performed By: #### A MY, CMP, LIPA ####[facility] Afwsmicxgp[address] [place] [address]Dr. Chrissy Frazier AST [Catalytic activity/Vol] 33 U/L Normal 15-37 [facility] Comment on above: Performed By: #### A MY, CMP, LIPA ####[facility] Rijghndkhg[address] [place], [place] [address]Dr. Chrissy Frazier Bilirubin [Mass/Vol] 0.7 mg/dL Normal 0.2-1.0 [facility] Comment on above: Performed By: #### A MY, CMP, LIPA ####[facility] Goukjvpkpl[address] [place], [place] [address]Dr. Chrissy Frazier Calcium [Mass/Vol] 9.5 mg/dL Normal 8.5-10.1 [facility] Comment on above: Performed By: #### A MY, CMP, LIPA ####[facility] Uwnvvnqiff[address] [place], [place] [address]Dr. Chrissy Frazier Chloride [Moles/Vol] 100 mmol/L Normal 98-107 [facility] Comment on above: Performed By: #### A MY, CMP, LIPA ####[facility] Npbdjuqpzm[address] [place], [place] [address]Dr. Chrissy Frazier CO2 [Moles/Vol] 14.2 mmol/L Critically low 21.0-32.0 [facility] Comment on above: Performed By: #### A MY, CMP, LIPA ####[facility] Exspkktteg[address] [place], [place] [address]Dr. Chrissy Frazier Creatinine [Mass/Vol] 1.70 mg/dL Critically high 0.70-1.30 [facility] Comment on above: Performed By: #### A MY, CMP, LIPA ####[facility] Ewahzymrfe[address] [place], [place] [address]Dr. Chrissy Frazier EGFR-AF ARMENIAN 57 mL/min/1.73m2 Critically low >=60 [facility] Comment on above: Performed By: #### A MY, CMP, LIPA ####[facility] V[address]rmtrvgv[address] [place] [address]Dr. Chrissy Frazier EGFR-NON AF ARMENIAN 47 mL/min/1.73m2 Critically low >=60 [facility] Comment on above: Performed By: #### A MY, CMP, LIPA ####[facility] [address]wkezwmw[address] [place] [address]Dr. Chrissy Frazier Globulin (S) [Mass/Vol] 4.2 g/dL Normal [facility] Comment on above: Performed By: #### A MY, CMP, LIPA ####[facility] Cdpnsmnujr[address] [place] [address]Dr. Chrissy Frazier Glucose [Mass/Vol] 212 mg/dL Critically high 74-[address] [facility] Comment on above: Performed By: #### A MY, CMP, LIPA ####[facility] Ljdjxhbyvh[address] [place] [address]Dr. Chrissy Frazier Potassium [Moles/Vol] 3.5 mmol/L Normal 3.5-5.1 [facility] Comment on above: Performed By: #### A MY, CMP, LIPA ####[facility] [address]kesheoy[address] [place] [address]Dr. Chrissy Frazier Protein [Mass/Vol] 8.5 g/dL Critically high 6.4-8.[address] [facility] Comment on above: Performed By: #### A MY, CMP, LIPA ####[facility] [address]jfrasaww[address] [place] [address]Dr. Chrissy Frazier Sodium [Moles/Vol] 136 mmol/L Normal 136-145 [facility] Comment on above: Performed By: #### A MY, CMP, LIPA ####[facility] Azwosachqq[address] [place] [address]Dr. Chrissy Frazier Urea nitrogen [Mass/Vol] 9.0 mg/dL Normal 7.0-18.0 [facility] Comment on above: Performed By: #### A MY, CMP, LIPA ####[facility] [address]gjvs[address] [place] [address]Dr. Chrissy Frazier Urea nitrogen/Creatinine [Mass ratio] 5.3 mg/mg Normal [facility] Comment on above: Performed By: #### A MY, CMP, LIPA ####[facility] Sulxychvqx050[address] [place], [place] [address]Dr. Chrissy Frazier AMYLASEon 07-07-2022 Amylase [Catalytic activity/Vol] 33 U/L Normal 25-115 [facility] Comment on above: Performed By: #### C MP, TERRENCE, BNP, LIPA ####[facility] Fvqqjkpxoo4664[address] [place], [place] [address]Dr. Chrissy Frazier BNPon 07-07-2022 Natriuretic peptide B (Bld) [Mass/Vol] 29.0 pg/mL Normal <=450.0 [facility] Comment on above: Performed By: #### C MP, TERRENCE, BNP, LIPA ####[facility] Sbvtytteyy939[address] [place], [place] [address]Dr. Chrissy Frazier CBC AUTO DIFFon 07-07-2022 BASO # 0.0 103/ul Normal 0.0-0.1 [facility] Comment on above: Performed By: #### C BC ####[facility] Utoxpccmum1962[address] [place], [place] [address]Dr. Chrissy Frazier Basophils/100 WBC (Bld) 0.4 % Normal 0.2-2.0 [facility] Comment on above: Performed By: #### C BC ####[facility] Nusyldhfyu39[address] [place], [place] [address]Dr. Chrissy Frazier EO # 0.3 103/ul Normal 0.0-0.7 [facility] Comment on above: Performed By: #### C BC ####[facility] Wydqhlaeqs196[address] [place], [place] [address]Dr. Chrissy Frazier Eosinophils/100 WBC (Bld) 3.0 % Normal 0.9-7.0 [facility] Comment on above: Performed By: #### C BC ####[facility] Hvcfjpowve[address] [place] [address]Dr. Chrissy Frazier Erythrocyte distribution width (RBC) [Ratio] 14.0 % Normal 11.0-15.0 [facility] Comment on above: Performed By: #### C BC ####[facility] Xiczkdvesq988[address] [place], [place] [address]Dr. Chrissy Frazier Hematocrit (Bld) [Volume fraction] 42.8 % Normal 42.0-54.0 [facility] Comment on above: Performed By: #### C BC ####[facility] Pgveiogixy7921[address] [place], [place] [address]Dr. Chrissy Frazier Hemoglobin (Bld) [Mass/Vol] 14.3 g/dL Normal 14.0-18.0 [facility] Comment on above: Result Comment: IV F LUIDS RUNNING Performed By: #### C BC ####[facility] Nqrnujmcln17[address] [place], [place] [address]Dr. Chrissy Frazier IG # 0.05 10e3/ul Critically high 0.00-0.03 [facility] Comment on above: Performed By: #### C BC ####[facility] Tpwjxmxyjz216[address] [place], [place] [address]Dr. Chrissy Frazier IG % 0.5 % Normal 0.0-0.5 [facility] Comment on above: Performed By: #### C BC ####[facility] Ckokbkphwn6617[address] [place], [place] [address]Dr. Chrissy Frazier LYMPH # 2.4 103/ul Normal 1.2-3.8 [facility] Comment on above: Performed By: #### C BC ####[facility] Laloikzowd6929[address] [place], [place] [address]Dr. Chrissy Frazier Lymphocytes/100 WBC (Bld) 25.5 % Normal 20.5-60.0 [facility] Comment on above: Performed By: #### C BC ####[facility] Vyfajvwcqz0801[address] [place], [place] [address]Dr. Chrissy Frazier MANUAL DIFF REQ NO Normal [facility] Comment on above: Performed By: #### C BC ####[facility] Noqbixqsgq0130 [place] [id number]. Chrissy Freddie MCH (RBC) [Entitic mass] 28.5 pg Normal 25.9-34.0 [facility] Comment on above: Performed By: #### C BC ####[facility] Uppjklkbed0411 [place] [id number]. Chrissy Frazier MCHC (RBC) [Mass/Vol] 33.4 g/dL Normal 29.9-35.2 [facility] Comment on above: Performed By: #### C BC ####[facility] Tyyldjlbiv25[address] [place] [address]Dr. Chrissy Freddie MCV (RBC) [Entitic vol] 85.3 fL Normal 80.0-94.0 [facility] Comment on above: Performed By: #### C BC ####[facility] Qlthhjsdcg9[address] [place], [place] [address]Dr. Chrissy Frazier MONO # 0.7 103/ul Normal 0.3-0.8 [facility] Comment on above: Performed By: #### C BC ####[facility] Ivvrxadhsb276[address] [place], [place] [address]Dr. Tishrowan Frazier Monocytes/100 WBC (Bld) 7.8 % Normal 1.7-12.0 [facility] Comment on above: Performed By: #### C BC ####[facility] Ikpzcyhpdo67[address] [place], [place] [address]Dr. Chrissy Frazier NEUT # 5.8 103/ul Normal 1.4-6.5 [facility] Comment on above: Performed By: #### C BC ####[facility] Filzjlmgts9567[address] [place], [place] [address]Dr. Chrissy Frazier Neutrophils/100 WBC (Bld) 62.8 % Normal 43.0-75.0 [facility] Comment on above: Performed By: #### C BC ####[facility] Pvnazqclkg32[address] [place], [place] [address]Dr. Chrissy Frazier Platelet mean volume (Bld) [Entitic vol] 10.8 fL Normal 9.5-13.5 [facility] Comment on above: Performed By: #### C BC ####[facility] Mndbwxrpnc9649 [place] [id number]. Chrissy Frazier PLT 310 103/ul Normal 150-450 [facility] Comment on above: Performed By: #### C BC ####[facility] Ioadamynfp0778 [place] [id number]. Chrissy Frazier RBC 5.02 106/ul Normal 4.70-6.10 [facility] Comment on above: Performed By: #### C BC ####[facility] Oqwbmpbeqq9129 [place] [id number]. Chrissy Frazier WBC 9.3 103/ul Normal 4.0-11.0 [facility] Comment on above: Performed By: #### C BC ####[facility] Cnwybujvtf0470 [place] [id number]. Chrissy Frazier CULTURE URINEon 07-07-2022 CULTURE URINE Culture Observations: NO GROWTH. Normal [facility] Comment on above: Performed By: #### U RCX ####[facility] Myquausmtz6849 [place] [id number]. Chrissy Farzier DRUG SCREEN RAPID (URINE)on 07-07-2022 AMP Negative Normal NEGATIVE [facility] Comment on above: Performed By: #### D RUGRPD ####[facility] Rzqywygelo5935 [place] [id number]. Chrissy Frazier BAR Negative Normal NEGATIVE [facility] Comment on above: Performed By: #### D RUGRPD ####[facility] Ewmeyjyblk3382 [place] [id number]. Chrissy Frazier BUP Negative Normal NEGATIVE [facility] Comment on above: Performed By: #### D RUGRPD ####[facility] Uihezvecoj[address] [place] [id number]. Chrissy Frazier BZO Positive Abnormal NEGATIVE [facility] Comment on above: Performed By: #### D RUGRPD ####[facility] Rgorslsmrj1859 [place] [id number]. Chrissy Frazier LAUREN Negative Normal NEGATIVE [facility] Comment on above: Performed By: #### D RUGRPD ####[facility] Exfnghwqdj6135[address] [place], [place] [address]Dr. Chrissy Frazier CUT-OFFS SEE BELOW Normal [facility] Comment on above: Result Comment: AMP (Amphetamine): 500ng/mL, BAR (Barbituates): 200 ng/mL, BZO (Benzodiazepines): 150 ng/mL, BUP (Buprenorphine): 10 ng/mL, LAUREN (Cocaine): 150 ng/mL, mAMP (Methamphetamine): 500 ng/mL, MTD (Methadone): 200 ng/mL, OPI (Opiates): 100 ng/mL, OXY (Oxycodone): 100 ng/mL, PCP (Phencyclidine): 25 ng/mL, PPX (Propoxyphene): 300 ng/mL, THC (Cannabinoids): 50 ng/mL, TCA (Trycyclic Antidepressants): 300 ng/mL Performed By: #### D RUGRPD ####[facility] Glgzseobwa8463[address] [place], [place] [address]Dr. Chrissy Frazier DRUG CUT HEADER DRUG CLASS TEST SYSTEM CUT-OFF CONCENTRATIONS ARE FOLLOWS: Normal [facility] Comment on above: Performed By: #### D RUGRPD ####[facility] Uovlebyrcu0761[address] [place], [place] [address]Dr. Chrissy Frazier mAMP Negative Normal NEGATIVE [facility] Comment on above: Performed By: #### D RUGRPD ####[facility] Elnbmdqspr3689[address] [place], [place] [address]Dr. Chrissy Frazier MTD Negative Normal NEGATIVE [facility] Comment on above: Performed By: #### D RUGRPD ####[facility] Bwzbsznijl6[address] [place], [place] [address]Dr. Chrissy Frazier OPI Negative Normal NEGATIVE [facility] Comment on above: Performed By: #### D RUGRPD ####[facility] Aexolwpfxs869[address] [place], [place] [address]Dr. Chrissy Frazier OXY Negative Normal NEGATIVE [facility] Comment on above: Performed By: #### D RUGRPD ####[facility] Qdbjjvjtwq4553[address] [place], [place] [address]Dr. Chrissy Frazier PCP Negative Normal NEGATIVE [facility] Comment on above: Performed By: #### D RUGRPD ####[facility] Ugcmxyqlyc98[address] [place] [address]Dr. Chrissy Frazier PPX Negative Normal NEGATIVE [facility] Comment on above: Performed By: #### D RUGRPD ####[facility] Mlzxnprvmu61[address] [place] [address]Dr. Chrissy Frazier TCA Positive Abnormal NEGATIVE [facility] Comment on above: Performed By: #### D RUGRPD ####[facility] Blnrbeydoa[address] [place] [address]Dr. Chrissy Frazier THC Positive Abnormal NEGATIVE [facility] Comment on above: Performed By: #### D RUGRPD ####[facility] Hvamtqtwws16[address] [place] [address]Dr. Chrissy Frazier LIPASEon 07-07-2022 Lipase [Catalytic activity/Vol] 118.0 U/L Normal 73.0-393.0 [facility] Comment on above: Performed By: #### L IPA ####[facility] Etthgycfay1524[address] [place], [place] [address]Dr. Chrissy Frazier Lipase [Catalytic activity/Vol] 114.0 U/L Normal 73.0-393.0 [facility] Comment on above: Performed By: #### C MP, TERRENCE, BNP, LIPA ####[facility] Lnkdptddlb60[address] [place] [address]Dr. Chrissy Frazier PROF 14(COMP METB)on 022 Albumin [Mass/Vol] 3.4 g/dL Normal 3.4-5.0 [facility] Comment on above: Performed By: #### C MP, TERRENCE, BNP, LIPA ####[facility] Rcsjxdffml9232 [place] [address]Dr. Chrissy Frazier Albumin/Globulin [Mass ratio] 1.1 {ratio} Normal [facility] Comment on above: Performed By: #### C MP, TERRENCE, BNP, LIPA ####[facility] Qjqtpouthh5483 [place] [address]Dr. Chrissy Frazier ALP [Catalytic activity/Vol] 68 U/L Normal 46-116 [facility] Comment on above: Performed By: #### C MP, TERRENCE, BNP, LIPA ####[facility] Ijgdmyruag3297 [place] [address]Dr. Chrissy Frazier ALT [Catalytic activity/Vol] 93 U/L Critically high 16-63 [facility] Comment on above: Performed By: #### C MP, TERRENCE, BNP, LIPA ####[facility] Qicdmpklfq7829 [place] [address]Dr. Chrissy Frazier Anion gap [Moles/Vol] 14.4 mmol/L Normal [facility] Comment on above: Performed By: #### C MP, TERRENCE, BNP, LIPA ####[facility] Rfwbzvvetb1443 [place] [address]Dr. Chrissy Frazier AST [Catalytic activity/Vol] 33 U/L Normal 15-37 [facility] Comment on above: Performed By: #### C MP, TERRENCE, BNP, LIPA ####[facility] Npsyiyxghb0422 [place] [address]Dr. Chrissy Frazier Bilirubin [Mass/Vol] 0.9 mg/dL Normal 0.2-1.0 [facility] Comment on above: Performed By: #### C MP, TERRENCE, BNP, LIPA ####[facility] Rdlwwantqy9254 [place] [address]Dr. Chrissy Frazier Calcium [Mass/Vol] 8.2 mg/dL Critically low 8.5-10.1 [facility] Comment on above: Performed By: #### C MP, TERRENCE, BNP, LIPA ####[facility] Tjemfjuwck9928 [place] [address]Dr. Chrissy Frazier Chloride [Moles/Vol] 103 mmol/L Normal 98-107 [facility] Comment on above: Performed By: #### C MP, TERRENCE, BNP, LIPA ####[facility] Lblfqrwydf0176 [place] [address]Dr. Chrissy Frazier CO2 [Moles/Vol] 22.9 mmol/L Normal 21.0-32.0 [facility] Comment on above: Performed By: #### C MP, TERRENCE, BNP, LIPA ####[facility] Lyozopdmgr8[address] [place] [address]Dr. Chrissy Frazier Creatinine [Mass/Vol] 1.07 mg/dL Normal 0.70-1.30 [facility] Comment on above: Performed By: #### C MP, TERRENCE, BNP, LIPA ####[facility] Tdxkotytbu2108 [place] [address]Dr. Chrissy Frazier EGFR-AF ARMENIAN >60 Normal >=60 [facility] Comment on above: Performed By: #### C MP, TERRENCE, BNP, LIPA ####[facility] Pmtjzvncbf7723 [place] [address]Dr. Chrissy Frazier EGFR-NON AF ARMENIAN >60 Normal >=60 [facility] Comment on above: Performed By: #### C MP, TERRENCE, BNP, LIPA ####[facility] Jdkxunikad5518[address] [place], [place] [address]Dr. Chrissy Frazier Globulin (S) [Mass/Vol] 3.2 g/dL Normal [facility] Comment on above: Performed By: #### C MP, TERRENCE, BNP, LIPA ####[facility] Aivbmexwsa2222[address] [place], [place] [address]Dr. Chrissy Frazier Glucose [Mass/Vol] 96 mg/dL Normal 74-[address] [facility] Comment on above: Performed By: #### C MP, TERRENCE, BNP, LIPA ####[facility] Myiputlamn0411[address] [place], [place] [address]Dr. Chrissy Frazier Potassium [Moles/Vol] 3.3 mmol/L Critically low 3.5-5.1 [facility] Comment on above: Performed By: #### C MP, TERRENCE, BNP, LIPA ####[facility] Ongakrmcyf9[address] [place], [place] [address]Dr. Chrissy Frazier Protein [Mass/Vol] 6.6 g/dL Normal 6.4-8.[address] [facility] Comment on above: Performed By: #### C MP, TERRENCE, BNP, LIPA ####[facility] Qqwdoyelea0857 [place] [address]Dr. Chrissy Frazier Sodium [Moles/Vol] 137 mmol/L Normal 136-[address] [facility] Comment on above: Performed By: #### C MP, TERRENCE, BNP, LIPA ####[facility] Koqugjgipm8995 [place] [address]Dr. Chrissy Frazier Urea nitrogen [Mass/Vol] 13.0 mg/dL Normal 7.0-18.0 [facility] Comment on above: Performed By: #### C MP, TERRENCE, BNP, LIPA ####[facility] Grivzneczy1482 [place] [address]Dr. Chrissy Frazier Urea nitrogen/Creatinine [Mass ratio] 12.1 mg/mg Normal [facility] Comment on above: Performed By: #### C MP, TERRENCE, BNP, LIPA ####[facility] Zoegzdbtsj109[address] [place], [place] [address]Dr. Chrissy Frazier UA RANDOM W/MICROSCOPICon BACTERIA TRACE Abnormal NONE SEEN [facility] Comment on above: Performed By: #### U AMIC ####[facility] Fccxlwkrbg7786[address] [place], [place] [address]Dr. Chrissy Frazier Bilirubin Ql (U) Negative Normal NEGATIVE [facility] Comment on above: Performed By: #### U AMIC ####[facility] Rvrdsmnbly6772 [place] [address]Dr. Chrissy Frazier CAST NONE SEEN Normal NONE SEEN [facility] Comment on above: Performed By: #### U AMIC ####[facility] Kvqgsxjisz47[address] [place], [place] [address]Dr. Chrissy Frazier Clarity (U) CLEAR Normal CLEAR [facility] Comment on above: Performed By: #### U AMIC ####[facility] Pibuppbqhx924[address] [place], [place] [address]Dr. Chrissy Frazier Color (U) YELLOW Normal YELLOW [facility] Comment on above: Performed By: #### U AMIC ####[facility] Jyfvgfhech166[address] [place], [place] [address]Dr. Chrissy Frazier Crystals LM Nom (Urine sed) SEEN Abnormal NONE SEEN [facility] Comment on above: Performed By: #### U AMIC ####[facility] Ejahdmnplf4492 [place] [address]Dr. Chrissy Frazier Epithelial cells LM Ql (Urine sed) RARE Normal NONE SEEN /RARE [facility] Comment on above: Performed By: #### U AMIC ####[facility] Escxkzolbz3066 [place] [address]Dr. Chrissy Frazier Glucose Ql (U) Negative Normal NEGATIVE [facility] Comment on above: Performed By: #### U AMIC ####[facility] Auhasipksy9[address] [place] [address]Dr. Chrissy Frazier Hemoglobin Ql (U) Negative Normal NEGATIVE [facility] Comment on above: Performed By: #### U AMIC ####[facility] Vsqwxazujj9543 [place] [address]Dr. Chrissy Frazier Ketones Ql (U) 15 mg/dl Abnormal NEGATIVE [facility] Comment on above: Performed By: #### U AMIC ####[facility] Kroiapyyca6264[address] [place], [place] [address]Dr. Chrissy Frazier LEUKOCYTES Negative Normal NEGATIVE [facility] Comment on above: Performed By: #### U AMIC ####[facility] Wpiwmdsgrf2282 [place] [id number]. Chrissy Frazier MUCOUS NONE SEEN Normal NONE SEEN [facility] Comment on above: Performed By: #### U AMIC ####[facility] Ulfppjcosd0853 [place] [id number]. Chrissy Frazier Nitrite Ql (U) Negative Normal NEGATIVE [facility] Comment on above: Performed By: #### U AMIC ####[facility] Ghymjozlbg8122 [place] [address]Dr. Chrissy Frazier pH (U) 6.0 [pH] Normal 5-9 [facility] Comment on above: Performed By: #### U AMIC ####[facility] Mvoeqrtuhc20[address] [place], [place] [address]Dr. Chrissy Frazier RBC 0-2 Normal 0-2 [facility] Comment on above: Performed By: #### U AMIC ####[facility] Rqyaejkjnf7752 [place] [address]Dr. Chrissy Frazier SPEC GRAVITY 1.015 Normal 1.005-<=1.025 [facility] Comment on above: Performed By: #### U AMIC ####[facility] Qvgpsdcvwx2736 [place] [address]Dr. Chrissy Frazier UA PROTEIN Negative Normal NEGATIVE/ TRACE [facility] Comment on above: Performed By: #### U AMIC ####[facility] Jhqkxmarpn4716 [place] [address]Dr. Chrissy Frazier URIC ACID CRYSTALS RARE Normal [facility] Comment on above: Performed By: #### U AMIC ####[facility] Ubrfgqihtv9856 [place] [address]Dr. Chrissy Frazier Urobilinogen Qn (U) 0.2 {Estrellita'U}/dL Normal 0.2 - 1. 0 [facility] Comment on above: Performed By: #### U AMIC ####[facility] Cewyeqlgkl5374 [place] [address]Dr. Chrissy Frazier WBC 0-2 Abnormal NONE SEEN [facility] Comment on above: Performed By: #### U AMIC ####[facility] Thhyxcurxf3129 [place] [id number]. Chrissy Freddie AMYLASEon 07-06-2022 Amylase [Catalytic activity/Vol] 37 U/L Normal 25-115 [facility] Comment on above: Performed By: #### C MP, LIPA, TERRENCE ####[facility] Pxgmeqmklt1847 [place] [address]Dr. Chrissy Frazier CBC AUTO DIFFon 07-06-2022 BASO # 0.1 103/ul Normal 0.0-0.1 [facility] Comment on above: Performed By: #### C BC ####[facility] Hkahjvxywu[address] [place] [address]Dr. Chrissy Frazier Basophils/100 WBC (Bld) 0.4 % Normal 0.2-2.0 [facility] Comment on above: Performed By: #### C BC ####[facility] Ozwoiphvxn1015 [place] [address]Dr. Chrissy Frazier EO # 0.1 103/ul Normal 0.0-0.7 [facility] Comment on above: Performed By: #### C BC ####[facility] Xovenuqyxp8423 [place] [address]Dr. Chrissy Frazier Eosinophils/100 WBC (Bld) 0.5 % Critically low 0.9-7.0 [facility] Comment on above: Performed By: #### C BC ####[facility] Lzbjugfxeh1944 [place] [address]Dr. Chrissy Frazier Erythrocyte distribution width (RBC) [Ratio] 13.6 % Normal 11.0-15.0 [facility] Comment on above: Performed By: #### C BC ####[facility] Wfjpqnwest64[address] [place], [place] [address]Dr. Chrissy Frazier Hematocrit (Bld) [Volume fraction] 47.9 % Normal 42.0-54.0 [facility] Comment on above: Performed By: #### C BC ####[facility] Zcklcvcqkw056[address] [place], [place] [address]Dr. Chrissy Frazier Hemoglobin (Bld) [Mass/Vol] 16.4 g/dL Normal 14.0-18.0 [facility] Comment on above: Performed By: #### C BC ####[facility] Sitvippfio1306[address] [place], [place] [address]Dr. Chrissy Frazier IG # 0.09 10e3/ul Critically high 0.00-0.03 [facility] Comment on above: Performed By: #### C BC ####[facility] Wvngrszkxm3748[address] [place], [place] [address]Dr. Chrissy Frazier IG % 0.6 % Critically high 0.0-0.5 [facility] Comment on above: Performed By: #### C BC ####[facility] Eqypkyeuqe485[address] [place], [place] [address]Dr. Tishrowan Frazier LYMPH # 2.5 103/ul Normal 1.2-3.8 [facility] Comment on above: Performed By: #### C BC ####[facility] Rqmmxhprar4643 [place] [id number]. Chrissy Freddie Lymphocytes/100 WBC (Bld) 16.7 % Critically low 20.5-60.0 [facility] Comment on above: Performed By: #### C BC ####[facility] Rofszweqlp1556 [place] [address]Dr. Chrissy Frazier MANUAL DIFF REQ NO Normal [facility] Comment on above: Performed By: #### C BC ####[facility] Oqnnzxlubt1204 [place] [phone]. Chrissy Frazier MCH (RBC) [Entitic mass] 28.1 pg Normal 25.9-34.0 [facility] Comment on above: Performed By: #### C BC ####[facility] Sccjtommum9[address] [place], [place] [address]Dr. Chrissy Frazier MCHC (RBC) [Mass/Vol] 34.2 g/dL Normal 29.9-35.2 [facility] Comment on above: Performed By: #### C BC ####[facility] Vunyzsaiac20[address] [place], [place] [address]Dr. Chrissy Frazier MCV (RBC) [Entitic vol] 82.2 fL Normal 80.0-94.0 [facility] Comment on above: Performed By: #### C BC ####[facility] Imdtftvqhp4483 [place] [address]Dr. Chrissy Frazier MONO # 1.0 103/ul Critically high 0.3-0.8 [facility] Comment on above: Performed By: #### C BC ####[facility] Nwjvebizoz5569 [place] [id number]. Chrissy Frazier Monocytes/100 WBC (Bld) 6.7 % Normal 1.7-12.0 [facility] Comment on above: Performed By: #### C BC ####[facility] Mygechnheh[address] [place], [place] [address]DrNancy Frazier NEUT # 11.3 103/ul Critically high 1.4-6.5 [facility] Comment on above: Performed By: #### C BC ####[facility] Evqikspmil8280 [place] [phone]. Chrissy Frazier Neutrophils/100 WBC (Bld) 75.1 % Critically high 43.0-75.0 [facility] Comment on above: Performed By: #### C BC ####[facility] Cfuvtfrifo3912 [place] [phone]. Chrissy Frazier Platelet mean volume (Bld) [Entitic vol] 10.6 fL Normal 9.5-13.5 [facility] Comment on above: Performed By: #### C BC ####[facility] Actvtgsine7363 [place] [phone]. Chrissy Frazier PLT 416 103/ul Normal 150-450 [facility] Comment on above: Performed By: #### C BC ####[facility] Igkblprayd3013 [place] [phone]. Chrissy Frazier RBC 5.83 106/ul Normal 4.70-6.10 [facility] Comment on above: Performed By: #### C BC ####[facility] Trpyguhquj0355 [place] [phone]. Chrissy Frazier WBC 15.0 103/ul Critically high 4.0-11.0 [facility] Comment on above: Performed By: #### C BC ####[facility] Lacitvrxkv7439 [place] [phone]. Chrissy Frazier [facility] SARS-CoV-2 (COVID-19) RNA RHIANNON+probe Ql (Unsp spec) Not detected Normal NOT DETECTED [facility] Comment on above: Result Comment: When [...] for this test is supported by the Simulation Analyst of Health and Human Service's declaration that [...] be used). Performed By: #### C VDTBH ####[facility] [address]rybccsrkb[address] [place] [address]Dr. Chrissy Frazier LIPASEon 07-06-2022 Lipase [Catalytic activity/Vol] 130.0 U/L Normal 73.0-393.0 [facility] Comment on above: Performed By: #### C MANA LIPA, TERRENCE ####[facility] Dnilupmxpl99[address] [place], [place] [address]Dr. Chrissy Frazier PROF 14(COMP METB)on 022 Albumin [Mass/Vol] 4.4 g/dL Normal 3.4-5.0 [facility] Comment on above: Performed By: #### C MANA LIPA, TERRENCE ####[facility] Kvbmknjhpz[address] [place], [place] [address]Dr. Chrissy Frazier Albumin/Globulin [Mass ratio] 1.1 {ratio} Normal [facility] Comment on above: Performed By: #### C MP LIPA, TERRENCE ####[facility] Vnfwolgoow35[address] [place], [place] [address]Dr. Chrissy Frazier ALP [Catalytic activity/Vol] 83 U/L Normal 46-116 [facility] Comment on above: Performed By: #### C MP, LIPA, TERRENCE ####[facility] Hvniofjnca9[address] [place], [place] [address]Dr. Chrissy Frazier ALT [Catalytic activity/Vol] 107 U/L Critically high 16-63 [facility] Comment on above: Performed By: #### C MP, LIPA, TERRENCE ####[facility] Tjklyukwwd38[address] [place], [place] [address]Dr. Chrissy Frazier Anion gap [Moles/Vol] 20.5 mmol/L Normal [facility] Comment on above: Performed By: #### C OSWALD ADARI, TERRENCE ####[facility] [address]oaogx[address] [place] [address]Dr. Chrissy Frazier AST [Catalytic activity/Vol] 46 U/L Critically high 15-37 [facility] Comment on above: Performed By: #### C OSWALD ADAIR, TERRENCE ####[facility] Cgyjgsiayh6[address] [place] [address]Dr. Chrissy Frazier Bilirubin [Mass/Vol] 1.2 mg/dL Critically high 0.2-1.0 [facility] Comment on above: Performed By: #### C OSWALD ADAIR, TERRENCE ####[facility] Rayhtfwefp[address] [place], [place] [address]Dr. Chrissy Frazier Calcium [Mass/Vol] 9.1 mg/dL Normal 8.5-10.1 [facility] Comment on above: Performed By: #### C OSWALD ADAIR, TERRENCE ####[facility] Hzhanjgqmn3913[address] [place], [place] [address]Dr. Chrissy Frazier Chloride [Moles/Vol] 100 mmol/L Normal 98-107 [facility] Comment on above: Performed By: #### C OSWALD ADAIR, TERRENCE ####[facility] Fgsvvrnmvv2[address] [place], [place] [address]Dr. Chrissy Frazier CO2 [Moles/Vol] 18.6 mmol/L Critically low 21.0-32.0 [facility] Comment on above: Performed By: #### C TESSA ADAIRA, TERRENCE ####[facility] Xgbpnattjo23[address] [place], [place] [address]Dr. Chrissy Frazier Creatinine [Mass/Vol] 1.44 mg/dL Critically high 0.70-1.30 [facility] Comment on above: Performed By: #### C TESSA ADAIRA, TERRENCE ####[facility] Vrepfandyh[address] [place] [address]Dr. Chrissy Frazier EGFR-AF ARMENIAN >60 Normal >=60 [facility] Comment on above: Performed By: #### C MP, LIPA, TERRENCE ####[facility] Ehegvxhhfo3[address] [place] [address]Dr. Chrissy Frazier EGFR-NON AF ARMENIAN 57 mL/min/1.73m2 Critically low >=60 [facility] Comment on above: Performed By: #### C MP, LIPA, TERRENCE ####[facility] Vnuxrdfhrl99[address] [place] [address]Dr. Chrissy Frazier Globulin (S) [Mass/Vol] 4.0 g/dL Normal [facility] Comment on above: Performed By: #### C MP, LIPA, TERRENCE ####[facility] Wibjizeryl5[address] [place] [address]Dr. Chrissy Frazier Glucose [Mass/Vol] 117 mg/dL Critically high 74-[address] [facility] Comment on above: Performed By: #### C MP, LIPA, TERRENCE ####[facility] Cepnamccgm1680 [place] [address]Dr. Chrissy Frazier Potassium [Moles/Vol] 3.1 mmol/L Critically low 3.5-5.1 [facility] Comment on above: Performed By: #### C MP, LIPA, TERRENCE ####[facility] Vzwbubrtbt4[address] [place], [place] [address]Dr. Chrissy Frazier Protein [Mass/Vol] 8.4 g/dL Critically high 6.4-8.[address] [facility] Comment on above: Performed By: #### C MP, LIPA, TERRENCE ####[facility] Ykebuouvia[address] [place] [address]Dr. Chrissy Frazier Sodium [Moles/Vol] 136 mmol/L Normal 136-145 [facility] Comment on above: Performed By: #### C MP, LIPA, TERRENCE ####[facility] Yzbritavio6963 [place] [address]Dr. Chrissy Frazier Urea nitrogen [Mass/Vol] 15.0 mg/dL Normal 7.0-18.0 [facility] Comment on above: Performed By: #### C MP, LIPA, TERRENCE ####[facility] Qabnlmbtsq0685 [place] [address]Dr. Yilan Frazier Urea nitrogen/Creatinine [Mass ratio] 10.4 mg/mg Normal [facility] Comment on above: Performed By: #### C OSWALD ADAIR AMY ####[facility] Epdkypodcj11[address] [place] [id number]. Chrissy Frazier CBC AUTO DIFFon 07-05-2022 BASO # 0.0 103/ul Normal 0.0-0.1 [facility] Comment on above: Performed By: #### C BC ####[facility] Jxqmijvzvg9[address] [place], [place] [address]Dr. Chrissy Frazier Basophils/100 WBC (Bld) 0.3 % Normal 0.2-2.0 [facility] Comment on above: Performed By: #### C BC ####[facility] Cnrcjuivik7063[address] [place], [place] [address]Dr. Chrissy Frazier EO # 0.2 103/ul Normal 0.0-0.7 [facility] Comment on above: Performed By: #### C BC ####[facility] Buplihgwlb1333[address] [place], [place] [address]Dr. Chrissy Frazier Eosinophils/100 WBC (Bld) 1.5 % Normal 0.9-7.0 [facility] Comment on above: Performed By: #### C BC ####[facility] Wnvgqubuzb65[address] [place], [place] [address]Dr. Chrissy Frazier Erythrocyte distribution width (RBC) [Ratio] 13.9 % Normal 11.0-15.0 [facility] Comment on above: Performed By: #### C BC ####[facility] Reetfpyspz4219[address] [place], [place] [address]Dr. Chrissy Frazier Hematocrit (Bld) [Volume fraction] 44.5 % Normal 42.0-54.0 [facility] Comment on above: Performed By: #### C BC ####[facility] Qbzejikvfx9826[address] [place], [place] [address]Dr. Chrissy Frazier Hemoglobin (Bld) [Mass/Vol] 14.8 g/dL Normal 14.0-18.0 [facility] Comment on above: Performed By: #### C BC ####[facility] Ypbeuynvpo0266 [place] [id number]. Chrissy Frazier IG # 0.05 10e3/ul Critically high 0.00-0.03 [facility] Comment on above: Performed By: #### C BC ####[facility] Egntlagvor3478 [place] [address]Dr. Chrissy Freddie IG % 0.4 % Normal 0.0-0.5 [facility] Comment on above: Performed By: #### C BC ####[facility] Jxmnrsczkw6[address] [place] [address]Dr. Chirssy Freddie LYMPH # 3.3 103/ul Normal 1.2-3.8 [facility] Comment on above: Performed By: #### C BC ####[facility] Acpboxrrrl6527 [place] [address]Dr. Chrissy Frazier Lymphocytes/100 WBC (Bld) 29.1 % Normal 20.5-60.0 [facility] Comment on above: Performed By: #### C BC ####[facility] Hnnazkqvnk9[address] [place] [address]Dr. Tishrowan Frazier MANUAL DIFF REQ NO Normal [facility] Comment on above: Performed By: #### C BC ####[facility] Resajjoxkj40[address] [place] [address]Dr. Chrissy Freddie MCH (RBC) [Entitic mass] 28.2 pg Normal 25.9-34.0 [facility] Comment on above: Performed By: #### C BC ####[facility] Tzjxjtljng68[address] [place] [address]Dr. Chrissy Freddie MCHC (RBC) [Mass/Vol] 33.3 g/dL Normal 29.9-35.2 [facility] Comment on above: Performed By: #### C BC ####[facility] Ymcxdgnxah9309 [place] [address]Dr. Chrissy Freddie MCV (RBC) [Entitic vol] 84.9 fL Normal 80.0-94.0 [facility] Comment on above: Performed By: #### C BC ####[facility] Obpnyzvdxh1562 [place] [id number]. Chrissy Frazier MONO # 0.6 103/ul Normal 0.3-0.8 [facility] Comment on above: Performed By: #### C BC ####[facility] Qpvppumnni0197 [place] [address]Dr. Chrissy Frazier Monocytes/100 WBC (Bld) 5.4 % Normal 1.7-12.0 [facility] Comment on above: Performed By: #### C BC ####[facility] Zmjvmysswj0891 [place] [address]Dr. Chrissy Frazier NEUT # 7.1 103/ul Critically high 1.4-6.5 [facility] Comment on above: Performed By: #### C BC ####[facility] Jnniztxxwx3796 [place] [address]Dr. Chrissy Frazier Neutrophils/100 WBC (Bld) 63.3 % Normal 43.0-75.0 [facility] Comment on above: Performed By: #### C BC ####[facility] Dsunkluyce56[address] [place] [address]Dr. Chrissy Frazier Platelet mean volume (Bld) [Entitic vol] 9.9 fL Normal 9.5-13.5 [facility] Comment on above: Performed By: #### C BC ####[facility] Mbjlvzgtbk8323 [place] [address]Dr. Chrissy Frazier PLT 339 103/ul Normal 150-450 [facility] Comment on above: Performed By: #### C BC ####[facility] Czgiqnyeuy2876 [place] [address]Dr. Chrissy Frazier RBC 5.24 106/ul Normal 4.70-6.10 [facility] Comment on above: Performed By: #### C BC ####[facility] Bgqhwnqqwf6817 [place] [address]Dr. Chrissy Frazier WBC 11.2 103/ul Critically high 4.0-11.0 [facility] Comment on above: Performed By: #### C BC ####[facility] Wvubsneokp0303 [place] [id number]. Chrissy Frazier PROF 14(COMP METB)on 022 Albumin [Mass/Vol] 3.8 g/dL Normal 3.4-5.0 [facility] Comment on above: Performed By: #### C MP ####[facility] Uanhkwcowz9509 [place] [address]Dr. Chrissy Frazier Albumin/Globulin [Mass ratio] 1.1 {ratio} Normal [facility] Comment on above: Performed By: #### C MP ####[facility] Jyfddlqveq1302 [place] [address]Dr. Chrissy Frazier ALP [Catalytic activity/Vol] 67 U/L Normal 46-116 [facility] Comment on above: Performed By: #### C MP ####[facility] Kmyzpcbsdq613[address] [place], [place] [address]Dr. Chrissy Frazier ALT [Catalytic activity/Vol] 75 U/L Critically high 16-63 [facility] Comment on above: Performed By: #### C MP ####[facility] Hmmcgqeilv768[address] [place], [place] [address]Dr. Chrissy Frazier Anion gap [Moles/Vol] 14.3 mmol/L Normal [facility] Comment on above: Performed By: #### C MP ####[facility] Cidtaeddim9[address] [place], [place] [address]Dr. Chrissy Frazier AST [Catalytic activity/Vol] 40 U/L Critically high 15-37 [facility] Comment on above: Performed By: #### C MP ####[facility] Lpxozmtndw7267[address] [place], [place] [address]Dr. Chrissy Frazier Bilirubin [Mass/Vol] 0.9 mg/dL Normal 0.2-1.0 [facility] Comment on above: Performed By: #### C MP ####[facility] Zhzreltucu3464[address] [place], [place] [address]Dr. Chrissy Frazier Calcium [Mass/Vol] 8.4 mg/dL Critically low 8.5-10.1 [facility] Comment on above: Performed By: #### C MP ####[facility] Bctifarive2[address] [place], [place] [address]Dr. Chrissy Frazier Chloride [Moles/Vol] 104 mmol/L Normal 98-107 [facility] Comment on above: Performed By: #### C MP ####[facility] Kbiyfxwwng5869 [place] [address]Dr. Chrissy Frazier CO2 [Moles/Vol] 24.1 mmol/L Normal 21.0-32.0 [facility] Comment on above: Performed By: #### C MP ####[facility] Aehwruwruz0716 [place] [address]Dr. Chrissy Frazier Creatinine [Mass/Vol] 1.11 mg/dL Normal 0.70-1.30 [facility] Comment on above: Performed By: #### C MP ####[facility] Mamphqieko588[address] [place], [place] [address]Dr. Chrissy Frazier EGFR-AF ARMENIAN >60 Normal >=60 [facility] Comment on above: Performed By: #### C MP ####[facility] Rbbepvzzwy2723[address] [place], [place] [address]Dr. Chrissy Frazier EGFR-NON AF ARMENIAN >60 Normal >=60 [facility] Comment on above: Performed By: #### C MP ####[facility] Acxuqysbwo847[address] [place], [place] [address]Dr. Chrissy Frazier Globulin (S) [Mass/Vol] 3.6 g/dL Normal [facility] Comment on above: Performed By: #### C MP ####[facility] Qskqhjoiyc030[address] [place], [place] [address]Dr. Chrissy Freddie Glucose [Mass/Vol] 89 mg/dL Normal 74-[address] [facility] Comment on above: Performed By: #### C MP ####[facility] Bxedxvadmn9729[address] [place], [place] [address]Dr. Chrissy Freddie Potassium [Moles/Vol] 3.4 mmol/L Critically low 3.5-5.1 [facility] Comment on above: Performed By: #### C MP ####[facility] Rhprdbhomm598[address] [place], [place] [address]Dr. Chrissy Freddie Protein [Mass/Vol] 7.4 g/dL Normal 6.4-8.2 [facility] Comment on above: Performed By: #### C MP ####[facility] Oesazmtosd8595[address] [place], [place] [address]Dr. Chrissy Frazier Sodium [Moles/Vol] 139 mmol/L Normal 136-[address] [facility] Comment on above: Performed By: #### C MP ####[facility] Amapxyonpc447[address] [place], [place] [address]Dr. Chrissy Frazier Urea nitrogen [Mass/Vol] 10.0 mg/dL Normal 7.0-18.0 [facility] Comment on above: Performed By: #### C MP ####[facility] Mudhudfkkd8626[address] [place], [place] [address]Dr. Chrissy Frazier Urea nitrogen/Creatinine [Mass ratio] 9.0 mg/mg Normal [facility] Comment on above: Performed By: #### C MP ####[facility] Xeabdabyed595[address] [place], [place] [address]Dr. Chrissy Frazier CBC AUTO DIFFon 07-04-2022 BASO # 0.0 103/ul Normal 0.0-0.1 [facility] Comment on above: Performed By: #### C BC ####[facility] Dirlpmqqad027[address] [place], [place] [address]Dr. Chrissy Frazier Basophils/100 WBC (Bld) 0.2 % Normal 0.2-2.0 [facility] Comment on above: Performed By: #### C BC ####[facility] Kjjnqgegew877[address] [place], [place] [address]Dr. Chrissy Frazier EO # 0.0 103/ul Normal 0.0-0.7 [facility] Comment on above: Performed By: #### C BC ####[facility] Odwzooclzr604[address] [place], [place] [address]Dr. Chrissy Frazier Eosinophils/100 WBC (Bld) 0.3 % Critically low 0.9-7.0 [facility] Comment on above: Performed By: #### C BC ####[facility] Jnrctsrwvl2225[address] [place], [place] [address]Dr. Chrissy Frazier Erythrocyte distribution width (RBC) [Ratio] 14.0 % Normal 11.0-15.0 [facility] Comment on above: Performed By: #### C BC ####[facility] Ijtncuwdpv2733 [place] [address]Dr. Chrissy Frazier Hematocrit (Bld) [Volume fraction] 43.2 % Normal 42.0-54.0 [facility] Comment on above: Performed By: #### C BC ####[facility] Ooguoyedha3077[address] [place], [place] [address]Dr. Chrissy Frazier Hemoglobin (Bld) [Mass/Vol] 14.6 g/dL Normal 14.0-18.0 [facility] Comment on above: Performed By: #### C BC ####[facility] Qwzdnnmgcy4534[address] [place], [place] [address]Dr. Chrissy Frazier IG # 0.11 10e3/ul Critically high 0.00-0.03 [facility] Comment on above: Performed By: #### C BC ####[facility] Ksndvixpgv2069[address] [place], [place] [address]Dr. Chrissy Frazier IG % 0.8 % Critically high 0.0-0.5 [facility] Comment on above: Performed By: #### C BC ####[facility] Vzcpoudwdh4708[address] [place], [place] [address]Dr. Chrissy Frazier LYMPH # 2.6 103/ul Normal 1.2-3.8 [facility] Comment on above: Performed By: #### C BC ####[facility] Mjginfxvgs1838[address] [place], [place] [address]DrNancy Chrissy Frazier Lymphocytes/100 WBC (Bld) 18.3 % Critically low 20.5-60.0 [facility] Comment on above: Performed By: #### C BC ####[facility] Mxdxzqglca8308[address] [place], [place] [address]DrNancy Chrissy Freddie MANUAL DIFF REQ NO Normal [facility] Comment on above: Performed By: #### C BC ####[facility] Tzwotbunjo0012[address] [place], [place] [address]Dr. Chrissy Freddie MCH (RBC) [Entitic mass] 28.1 pg Normal 25.9-34.0 [facility] Comment on above: Performed By: #### C BC ####[facility] Owtdnbedca3653 [place] [address]Dr. Chrissy Frazier MCHC (RBC) [Mass/Vol] 33.8 g/dL Normal 29.9-35.2 [facility] Comment on above: Performed By: #### C BC ####[facility] Ynzvlpriyz8129[address] [place], [place] [address]Dr. Chrissy Freddie MCV (RBC) [Entitic vol] 83.2 fL Normal 80.0-94.0 [facility] Comment on above: Performed By: #### C BC ####[facility] Fgxuymcjuu299[address] [place], [place] [address]Dr. Chrissy Frazier MONO # 0.7 103/ul Normal 0.3-0.8 [facility] Comment on above: Performed By: #### C BC ####[facility] Gfwulywrpy0946[address] [place], [place] [address]Dr. Chrissy Frazier Monocytes/100 WBC (Bld) 5.3 % Normal 1.7-12.0 [facility] Comment on above: Performed By: #### C BC ####[facility] Tdlvpmgddg216[address] [place], [place] [address]Dr. Tishrowan Freddie NEUT # 10.5 103/ul Critically high 1.4-6.5 [facility] Comment on above: Performed By: #### C BC ####[facility] Tcanaaxcsv24[address] [place], [place] [address]Dr. Chrissy Frazier Neutrophils/100 WBC (Bld) 75.1 % Critically high 43.0-75.0 [facility] Comment on above: Performed By: #### C BC ####[facility] Ixqnfpwmxc9823[address] [place], [place] [address]Dr. Chrissy Frazier Platelet mean volume (Bld) [Entitic vol] 10.6 fL Normal 9.5-13.5 [facility] Comment on above: Performed By: #### C BC ####[facility] Gaxlmcrquv8740 [place] [address]Dr. Chrissy Frazier PLT 309 103/ul Normal 150-450 [facility] Comment on above: Performed By: #### C BC ####[facility] Aocbutmidq786[address] [place], [place] [address]Dr. Tishrowan Freddie RBC 5.19 106/ul Normal 4.70-6.10 [facility] Comment on above: Performed By: #### C BC ####[facility] Lypoaxvofm1309[address] [place], [place] [address]Dr. Chrissy Frazier WBC 14.0 103/ul Critically high 4.0-11.0 [facility] Comment on above: Performed By: #### C BC ####[facility] Zqndpqvqlu8319[address] [place], [place] [address]DrNancy Frazier PROF 14(COMP METB)on 022 Albumin [Mass/Vol] 4.0 g/dL Normal 3.4-5.0 [facility] Comment on above: Performed By: #### C MP ####[facility] Igmwglvcea1518[address] [place], [place] [address]Dr. Chrissy Frazier Albumin/Globulin [Mass ratio] 1.1 {ratio} Normal [facility] Comment on above: Performed By: #### C MP ####[facility] Bieljmwtgz9189[address] [place], [place] [address]Dr. Chrissy Frazier ALP [Catalytic activity/Vol] 67 U/L Normal 46-116 [facility] Comment on above: Performed By: #### C MP ####[facility] Knmznyjlrj7135 [place] [address]DrNancy Frazier ALT [Catalytic activity/Vol] 40 U/L Normal 16-63 [facility] Comment on above: Performed By: #### C MP ####[facility] Hosscsnvwt1779[address] [place], [place] [address]DrNancy Frazier Anion gap [Moles/Vol] 17.7 mmol/L Normal [facility] Comment on above: Performed By: #### C MP ####[facility] Vzfcmvstsr3419[address] [place], [place] [address]DrNancy Frazier AST [Catalytic activity/Vol] 27 U/L Normal 15-37 [facility] Comment on above: Performed By: #### C MP ####[facility] Mkergkslgu5519 [place] [address]Dr. Chrissy Frazier Bilirubin [Mass/Vol] 0.8 mg/dL Normal 0.2-1.0 [facility] Comment on above: Performed By: #### C MP ####[facility] Itslmgtnwx6956[address] [place], [place] [address]Dr. Chrissy Freddie Calcium [Mass/Vol] 8.8 mg/dL Normal 8.5-10.1 [facility] Comment on above: Performed By: #### C MP ####[facility] Ayfzujsarx677[address] [place], [place] [address]Dr. Chrissy Freddie Chloride [Moles/Vol] 105 mmol/L Normal 98-107 [facility] Comment on above: Performed By: #### C MP ####[facility] Fajojuyghu3258[address] [place], [place] [address]Dr. Chrissy Freddie CO2 [Moles/Vol] 16.5 mmol/L Critically low 21.0-32.0 [facility] Comment on above: Performed By: #### C MP ####[facility] Lizuzwteir4485[address] [place], [place] [address]Dr. Chrissy Freddie Creatinine [Mass/Vol] 1.02 mg/dL Normal 0.70-1.30 [facility] Comment on above: Performed By: #### C MP ####[facility] Bqjlpkvbul1417[address] [place], [place] [address]Dr. Chrissy Freddie EGFR-AF ARMENIAN >60 Normal >=60 [facility] Comment on above: Performed By: #### C MP ####[facility] Ivvlvgebvf3231[address] [place], [place] [address]Dr. Chrissy Frazier EGFR-NON AF ARMENIAN >60 Normal >=60 [facility] Comment on above: Performed By: #### C MP ####[facility] Fflwcddhth883[address] [place], [place] [address]Dr. Chrissy Frazier Globulin (S) [Mass/Vol] 3.7 g/dL Normal [facility] Comment on above: Performed By: #### C MP ####[facility] Ixclezzplw4588 [place] [address]Dr. Chrissy Frazier Glucose [Mass/Vol] 106 mg/dL Normal 74-106 [facility] Comment on above: Performed By: #### C MP ####[facility] Qsizrwgkfu6334 [place] [id number]. Chrissy Freddie Potassium [Moles/Vol] 3.2 mmol/L Critically low 3.5-5.1 [facility] Comment on above: Performed By: #### C MP ####[facility] Ssysnmuapx5088 [place] [address]Dr. Chrissy Frazier Protein [Mass/Vol] 7.7 g/dL Normal 6.4-8.2 [facility] Comment on above: Performed By: #### C MP ####[facility] Ddkztjtmux[address] [place], [place] [address]Dr. Chrissy Freddie Sodium [Moles/Vol] 136 mmol/L Normal 136-145 [facility] Comment on above: Performed By: #### C MP ####[facility] Izjfcreccs4089[address] [place], [place] [address]Dr. Chrissy Freddie Urea nitrogen [Mass/Vol] 10.0 mg/dL Normal 7.0-18.0 [facility] Comment on above: Performed By: #### C MP ####[facility] Vkqyubnhnw[address] [place] [id number]. Chrissy Freddie Urea nitrogen/Creatinine [Mass ratio] 9.8 mg/mg Normal [facility] Comment on above: Performed By: #### C MP ####[facility] Wvamlyirql[address] [place], [place] [id number]. Chrissy Freddie CBC AUTO DIFFon 07-03-2022 BASO # 0.1 103/ul Normal 0.0-0.1 [facility] Comment on above: Performed By: #### C BC ####[facility] Pcthdeoltr35[address] [place], [place] [address]Dr. Tishrowan Frazier Basophils/100 WBC (Bld) 0.5 % Normal 0.2-2.0 [facility] Comment on above: Performed By: #### C BC ####[facility] Xasdnoqlmz47[address] [place], [place] [address]DrNancy Frazier EO # 0.1 103/ul Normal 0.0-0.7 [facility] Comment on above: Performed By: #### C BC ####[facility] Nqhjypfoqi763[address] [place], [place] [address]Dr. Chrissy Frazier Eosinophils/100 WBC (Bld) 1.3 % Normal 0.9-7.0 [facility] Comment on above: Performed By: #### C BC ####[facility] Uyokhpvrky9[address] [place], [place] [address]Dr. Chrissy Frazier Erythrocyte distribution width (RBC) [Ratio] 14.2 % Normal 11.0-15.0 [facility] Comment on above: Performed By: #### C BC ####[facility] Lptpwyvldk5632[address] [place], [place] [address]Dr. Chrissy Frazier Hematocrit (Bld) [Volume fraction] 41.7 % Critically low 42.0-54.0 [facility] Comment on above: Performed By: #### C BC ####[facility] Qvomajqnep7083[address] [place], [place] [address]DrNancy Frazier Hemoglobin (Bld) [Mass/Vol] 13.6 g/dL Critically low 14.0-18.0 [facility] Comment on above: Performed By: #### C BC ####[facility] Asqtevrtkb0685[address] [place], [place] [address]DrNancy Frazier IG # 0.04 10e3/ul Critically high 0.00-0.03 [facility] Comment on above: Performed By: #### C BC ####[facility] Ksnvusrthc0917[address] [place], [place] [address]DrNancy Frazier IG % 0.4 % Normal 0.0-0.5 [facility] Comment on above: Performed By: #### C BC ####[facility] Tigcaniqjj5707[address] [place], [place] [address]DrNancy Frazier LYMPH # 3.5 103/ul Normal 1.2-3.8 [facility] Comment on above: Performed By: #### C BC ####[facility] Xxiogzwosw9366 [place] [address]Dr. Chrissy Frazier Lymphocytes/100 WBC (Bld) 33.5 % Normal 20.5-60.0 [facility] Comment on above: Performed By: #### C BC ####[facility] Gaiagjacjw[address] [place] [address]Dr. Chrissy Frazier MANUAL DIFF REQ NO Normal [facility] Comment on above: Performed By: #### C BC ####[facility] Hpoclrewcg8566 [place] [address]Dr. Chrissy Frazier MCH (RBC) [Entitic mass] 27.9 pg Normal 25.9-34.0 [facility] Comment on above: Performed By: #### C BC ####[facility] Qalqvnxljr5433[address] [place], [place] [address]Dr. Chrissy Frazier MCHC (RBC) [Mass/Vol] 32.6 g/dL Normal 29.9-35.2 [facility] Comment on above: Performed By: #### C BC ####[facility] Mdhylehbzx6784[address] [place], [place] [address]Dr. Chrissy Frazier MCV (RBC) [Entitic vol] 85.6 fL Normal 80.0-94.0 [facility] Comment on above: Performed By: #### C BC ####[facility] Eytcwnzimq3223[address] [place], [place] [address]Dr. Chrissy Frazier MONO # 0.7 103/ul Normal 0.3-0.8 [facility] Comment on above: Performed By: #### C BC ####[facility] Xbctjhmldp1352[address] [place], [place] [address]Dr. Chrissy Frazier Monocytes/100 WBC (Bld) 6.5 % Normal 1.7-12.0 [facility] Comment on above: Performed By: #### C BC ####[facility] Fzihffsqtl6344[address] [place], [place] [address]Dr. Chrissy Frazier NEUT # 6.1 103/ul Normal 1.4-6.5 [facility] Comment on above: Performed By: #### C BC ####[facility] Rusmrmfqla9357 [place] [address]Dr. Chrissy Frazier Neutrophils/100 WBC (Bld) 57.8 % Normal 43.0-75.0 [facility] Comment on above: Performed By: #### C BC ####[facility] Wwrdhlrcuj3764 [place] [address]Dr. Chrissy Frazier Platelet mean volume (Bld) [Entitic vol] 10.4 fL Normal 9.5-13.5 [facility] Comment on above: Performed By: #### C BC ####[facility] Ohcpkgyext0619[address] [place], [place] [address]Dr. Chrissy Frazier PLT 288 103/ul Normal 150-450 [facility] Comment on above: Performed By: #### C BC ####[facility] Biiekrujog677[address] [place], [place] [address]Dr. Chrissy Frazier RBC 4.87 106/ul Normal 4.70-6.10 [facility] Comment on above: Performed By: #### C BC ####[facility] Xoywksdbar3071[address] [place], [place] [address]DrNancy Frazier WBC 10.5 103/ul Normal 4.0-11.0 [facility] Comment on above: Performed By: #### C BC ####[facility] Bwkwjgufxt0537[address] [place], [place] [address]DrNancy Frazier PROF 14(COMP METB)on 022 Albumin [Mass/Vol] 3.6 g/dL Normal 3.4-5.0 [facility] Comment on above: Performed By: #### C MP ####[facility] Knberqytsc4591[address] [place], [place] [address]DrNancy Fraizer Albumin/Globulin [Mass ratio] 1.1 {ratio} Normal [facility] Comment on above: Performed By: #### C MP ####[facility] Vuhzrpduuj983[address] [place], [place] [address]DrNancy Frazier ALP [Catalytic activity/Vol] 58 U/L Normal 46-116 [facility] Comment on above: Performed By: #### C MP ####[facility] Tcecktbrvn0661 [place] [address]Dr. Chrissy Frazier ALT [Catalytic activity/Vol] 30 U/L Normal 16-63 [facility] Comment on above: Performed By: #### C MP ####[facility] Kyiqgcmtnn2746 [place] [address]Dr. Chrissy Frazier Anion gap [Moles/Vol] 14.5 mmol/L Normal [facility] Comment on above: Performed By: #### C MP ####[facility] Fsjlbxvayf0537[address] [place], [place] [address]Dr. Chrissy Frazier AST [Catalytic activity/Vol] 17 U/L Normal 15-37 [facility] Comment on above: Performed By: #### C MP ####[facility] Jlzezuofmx2949[address] [place], [place] [address]Dr. Chrissy Frazier Bilirubin [Mass/Vol] 0.6 mg/dL Normal 0.2-1.0 [facility] Comment on above: Performed By: #### C MP ####[facility] Pumrikbfhu3536[address] [place], [place] [address]Dr. Chrissy Frazier Calcium [Mass/Vol] 8.4 mg/dL Critically low 8.5-10.1 [facility] Comment on above: Performed By: #### C MP ####[facility] Blyzwjffvr4234[address] [place], [place] [address]Dr. Chrissy Frazier Chloride [Moles/Vol] 106 mmol/L Normal 98-107 [facility] Comment on above: Performed By: #### C MP ####[facility] Vrbtgeqrbt39[address] [place], [place] [address]Dr. Chrissy Frazier CO2 [Moles/Vol] 22.6 mmol/L Normal 21.0-32.0 [facility] Comment on above: Performed By: #### C MP ####[facility] Jtbyyzovdw3686[address] [place], [place] [address]Dr. Chrissy Freddie Creatinine [Mass/Vol] 1.08 mg/dL Normal 0.70-1.30 [facility] Comment on above: Performed By: #### C MP ####[facility] Qngiamypyv4334 [place] [address]Dr. Chrissy Frazier EGFR-AF ARMENIAN >60 Normal >=60 [facility] Comment on above: Performed By: #### C MP ####[facility] Qhvejsfwcp1933 [place] [address]Dr. Chrissy Frazier EGFR-NON AF ARMENIAN >60 Normal >=60 [facility] Comment on above: Performed By: #### C MP ####[facility] Snszwwabut7181 [place] [address]Dr. Chrissy Frazier Globulin (S) [Mass/Vol] 3.3 g/dL Normal [facility] Comment on above: Performed By: #### C MP ####[facility] Zyuxlfzjqe2811[address] [place], [place] [address]Dr. Chrissy Frazier Glucose [Mass/Vol] 94 mg/dL Normal 74-106 [facility] Comment on above: Performed By: #### C MP ####[facility] Teumkfmdxg6334 [place] [address]Dr. Chrissy Frazier Potassium [Moles/Vol] 3.1 mmol/L Critically low 3.5-5.1 [facility] Comment on above: Performed By: #### C MP ####[facility] Pemcsyhnub2192 [place] [address]Dr. Chrissy Frazier Protein [Mass/Vol] 6.9 g/dL Normal 6.4-8.[address] [facility] Comment on above: Performed By: #### C MP ####[facility] Mtcshrdsxf7024 [place] [address]Dr. Chrissy Frazier Sodium [Moles/Vol] 140 mmol/L Normal 136-[address] [facility] Comment on above: Performed By: #### C MP ####[facility] Mmlsegldra9422 [place] [address]Dr. Chrissy Frazier Urea nitrogen [Mass/Vol] 10.0 mg/dL Normal 7.0-18.0 [facility] Comment on above: Performed By: #### C MP ####[facility] Ozwreuffyb8087 [place] [address]Dr. Chrissy Frazier Urea nitrogen/Creatinine [Mass ratio] 9.3 mg/mg Normal [facility] Comment on above: Performed By: #### C MP ####[facility] Cvbqiiydmw8121 [place] [address]Dr. Chrissy Freddie CBC AUTO DIFFon 07-02-2022 BASO # 0.0 103/ul Normal 0.0-0.1 [facility] Comment on above: Performed By: #### C BC ####[facility] Edtuidjvsf8[address] [place], [place] [address]Dr. Tishrowan Frazier Basophils/100 WBC (Bld) 0.2 % Normal 0.2-2.0 [facility] Comment on above: Performed By: #### C BC ####[facility] Uxjinalxyb9[address] [place], [place] [address]Dr. Tishrowan Frazier EO # 0.0 103/ul Normal 0.0-0.7 [facility] Comment on above: Performed By: #### C BC ####[facility] Mycwniwhqr8257[address] [place], [place] [address]Dr. Chrissy Freddie Eosinophils/100 WBC (Bld) 0.0 % Critically low 0.9-7.0 [facility] Comment on above: Performed By: #### C BC ####[facility] Thrilexlqx7513[address] [place], [place] [address]Dr. Chrissy Freddie Erythrocyte distribution width (RBC) [Ratio] 14.2 % Normal 11.0-15.0 [facility] Comment on above: Performed By: #### C BC ####[facility] Pclucuteac4137[address] [place], [place] [address]Dr. Chrissy Frazier Hematocrit (Bld) [Volume fraction] 46.2 % Normal 42.0-54.0 [facility] Comment on above: Performed By: #### C BC ####[facility] Btzxyhfwli[address] [place], [place] [address]Dr. Chrissy Freddie Hemoglobin (Bld) [Mass/Vol] 15.2 g/dL Normal 14.0-18.0 [facility] Comment on above: Performed By: #### C BC ####[facility] Julpynbjwg4854 [place] [address]Dr. Chrissy Frazier IG # 0.07 10e3/ul Critically high 0.00-0.03 [facility] Comment on above: Performed By: #### C BC ####[facility] Xasulbwvpz8012 [place] [address]Dr. Chrissy Frazier IG % 0.4 % Normal 0.0-0.5 [facility] Comment on above: Performed By: #### C BC ####[facility] Wxpfjwsjne7985 [place] [address]Dr. Chrissy Frazier LYMPH # 2.8 103/ul Normal 1.2-3.8 [facility] Comment on above: Performed By: #### C BC ####[facility] Zedupgthjw1627 [place] [address]Dr. Chrissy Frazier Lymphocytes/100 WBC (Bld) 16.7 % Critically low 20.5-60.0 [facility] Comment on above: Performed By: #### C BC ####[facility] Fjyqiupvtm1310 [place] [address]Dr. Chrissy Frazier MANUAL DIFF REQ NO Normal [facility] Comment on above: Performed By: #### C BC ####[facility] Vqllwnpzyf0898 [place] [address]Dr. Chrissy Frazier MCH (RBC) [Entitic mass] 28.3 pg Normal 25.9-34.0 [facility] Comment on above: Performed By: #### C BC ####[facility] Qnikgdvfbw5176 [place] [address]Dr. Chrissy Freddie MCHC (RBC) [Mass/Vol] 32.9 g/dL Normal 29.9-35.2 [facility] Comment on above: Performed By: #### C BC ####[facility] Nceplxuoki7965 [place] [address]Dr. Chrissy Frazier MCV (RBC) [Entitic vol] 86.0 fL Normal 80.0-94.0 [facility] Comment on above: Performed By: #### C BC ####[facility] Rjdjwewagw2741 [place] [address]Dr. Chrissy Frazier MONO # 0.9 103/ul Critically high 0.3-0.8 [facility] Comment on above: Performed By: #### C BC ####[facility] Sdtssedmwj5710 [place] [address]Dr. Chrissy Frazier Monocytes/100 WBC (Bld) 5.1 % Normal 1.7-12.0 [facility] Comment on above: Performed By: #### C BC ####[facility] Aqgdqwcmzl0706 [place] [address]Dr. Chrissy Frazier NEUT # 13.2 103/ul Critically high 1.4-6.5 [facility] Comment on above: Performed By: #### C BC ####[facility] Mpciuttbfa0499 [place] [address]Dr. Chrissy Frazier Neutrophils/100 WBC (Bld) 77.6 % Critically high 43.0-75.0 [facility] Comment on above: Performed By: #### C BC ####[facility] Syzmpwvzum4802 [place] [address]Dr. Chrissy Frazier Platelet mean volume (Bld) [Entitic vol] 11.6 fL Normal 9.5-13.5 [facility] Comment on above: Performed By: #### C BC ####[facility] Fsiuoeehzr9127 [place] [address]Dr. Chrissy Frazier PLT 317 103/ul Normal 150-450 [facility] Comment on above: Performed By: #### C BC ####[facility] Vianbyxsao5817 [place] [address]Dr. Chrissy Frazier RBC 5.37 106/ul Normal 4.70-6.10 [facility] Comment on above: Performed By: #### C BC ####[facility] Ixiclpflru7399 [place] [address]Dr. Chrissy Frazier WBC 17.1 103/ul Critically high 4.0-11.0 [facility] Comment on above: Performed By: #### C BC ####[facility] Ohimuneuhr4514 [place] [address]Dr. Chrissy Frazier CT ABD/PELV W CONon 07-02-20 CT ABD/PELV W CON Normal [facility] H PYLORI ANTIBODY IGGon 06-21 H. PYLORI IGG ABS 0.13 Index Value Normal 0.00-0.[address] [facility] Comment on above: Result Comment: Nega tive <0.80 Equivocal 0.80 - 0.89 Positive >0.89 Performed By: #### H PYLLC ####[facility] Giuzckhcnk8031 [place] [address]Dr. Chrissy Frazier PROF 14(COMP METB)on 022 Albumin [Mass/Vol] 3.8 g/dL Normal 3.4-5.0 [facility] Comment on above: Performed By: #### C MP ####[facility] Ntfbilczah7[address] [place], [place] [address]DrNancy Frazier Albumin/Globulin [Mass ratio] 1.0 {ratio} Normal [facility] Comment on above: Performed By: #### C MP ####[facility] Ofrbsqrqbv9517[address] [place], [place] [address]Dr. Chrissy Frazier ALP [Catalytic activity/Vol] 68 U/L Normal 46-116 [facility] Comment on above: Performed By: #### C MP ####[facility] Aisuziajxn0776 [place] [address]Dr. Chrissy Frazier ALT [Catalytic activity/Vol] 34 U/L Normal 16-63 [facility] Comment on above: Performed By: #### C MP ####[facility] Ccuffoxktv044[address] [place], [place] [address]DrNancy Frazier Anion gap [Moles/Vol] 17.9 mmol/L Normal [facility] Comment on above: Performed By: #### C MP ####[facility] Ndfkaruqbv3091 [place] [address]Dr. Chrissy Frazier AST [Catalytic activity/Vol] 24 U/L Normal 15-37 [facility] Comment on above: Performed By: #### C MP ####[facility] Nnblmxfmgc2031 [place] [address]Dr. Chrissy Frazier Bilirubin [Mass/Vol] 0.6 mg/dL Normal 0.2-1.0 [facility] Comment on above: Performed By: #### C MP ####[facility] Evmhzlfeuq8830 [place] [address]Dr. Chrissy Frazier Calcium [Mass/Vol] 8.8 mg/dL Normal 8.5-10.1 [facility] Comment on above: Performed By: #### C MP ####[facility] Xsrlkwobsv7074[address] [place], [place] [address]Dr. Chrissy Frazier Chloride [Moles/Vol] 105 mmol/L Normal 98-107 [facility] Comment on above: Performed By: #### C MP ####[facility] Bmozzpuzxl7822[address] [place], [place] [address]Dr. Chrissy Frazier CO2 [Moles/Vol] 18.8 mmol/L Critically low 21.0-32.0 [facility] Comment on above: Performed By: #### C MP ####[facility] Narheodphs4068[address] [place], [place] [address]Dr. Chrissy Frazier Creatinine [Mass/Vol] 1.15 mg/dL Normal 0.70-1.30 [facility] Comment on above: Performed By: #### C MP ####[facility] Woungogusr4799[address] [place], [place] [address]Dr. Chrissy Frazier EGFR-AF ARMENIAN >60 Normal >=60 [facility] Comment on above: Performed By: #### C MP ####[facility] Dazxknuexf2518 [place] [address]Dr. Chrissy Frazier EGFR-NON AF ARMENIAN >60 Normal >=60 [facility] Comment on above: Performed By: #### C MP ####[facility] Ywaabbpzwl20[address] [place], [place] [address]Dr. Chrissy Frazier Globulin (S) [Mass/Vol] 3.9 g/dL Normal [facility] Comment on above: Performed By: #### C MP ####[facility] Awxdukjaxc9006 [place] [id number]. Chrissy Frazier Glucose [Mass/Vol] 124 mg/dL Critically high 74-[address] [facility] Comment on above: Performed By: #### C MP ####[facility] Myepqjkmaa3602 [place] [address]Dr. Chrissy Frazier Potassium [Moles/Vol] 3.7 mmol/L Normal 3.5-5.1 [facility] Comment on above: Performed By: #### C MP ####[facility] Ncvtunyuaa8096 [place] [address]Dr. Chrissy Frazier Protein [Mass/Vol] 7.7 g/dL Normal 6.4-8.2 [facility] Comment on above: Performed By: #### C MP ####[facility] Ixrwxjybtw4585 [place] [address]Dr. Chrissy Frazier Sodium [Moles/Vol] 138 mmol/L Normal 136-145 [facility] Comment on above: Performed By: #### C MP ####[facility] Acdcqntszw1967 [place] [address]Dr. Chrissy Frazier Urea nitrogen [Mass/Vol] 9.0 mg/dL Normal 7.0-18.0 [facility] Comment on above: Performed By: #### C MP ####[facility] Acjfaghbta6625 [place] [address]Dr. Chrissy Frazier Urea nitrogen/Creatinine [Mass ratio] 7.8 mg/mg Normal [facility] Comment on above: Performed By: #### C MP ####[facility] Dcikabmsej7[address] [place], [place] [address]Dr. Chrissy Frazier AMMONIAon 07-01-2022 Ammonia (P) [Moles/Vol] 14 umol/L Normal 11-32 [facility] Comment on above: Performed By: #### A MM ####[facility] Bxunhmqfgd6180 [place] [address]Dr. Chrissy Frazier AMYLASEon 07-01-2022 Amylase [Catalytic activity/Vol] 32 U/L Normal 25-115 [facility] Comment on above: Performed By: #### A MY, PHOS, CMP, LIPA ####[facility] Ntajfzcbkb7651 [place] [address]Dr. Chrissy Frazier CBC AUTO DIFFon 07-01-2022 BASO # 0.1 103/ul Normal 0.0-0.1 [facility] Comment on above: Performed By: #### C BC ####[facility] Vusjzbbtus9[address] [place], [place] [address]Dr. Chrissy Frazier Basophils/100 WBC (Bld) 0.4 % Normal 0.2-2.0 [facility] Comment on above: Performed By: #### C BC ####[facility] Evhsefvynd1442[address] [place], [place] [address]Dr. Chrissy Frazier EO # 0.2 103/ul Normal 0.0-0.7 [facility] Comment on above: Performed By: #### C BC ####[facility] Mewkkjjipv5147[address] [place], [place] [address]Dr. Chrissy Frazier Eosinophils/100 WBC (Bld) 0.9 % Normal 0.9-7.0 [facility] Comment on above: Performed By: #### C BC ####[facility] Bqkpfwwcyc475[address] [place], [place] [address]Dr. Chrissy Frazier Erythrocyte distribution width (RBC) [Ratio] 13.8 % Normal 11.0-15.0 [facility] Comment on above: Performed By: #### C BC ####[facility] Gdjpdurszb1587[address] [place], [place] [address]Dr. Chrissy Frazier Hematocrit (Bld) [Volume fraction] 46.3 % Normal 42.0-54.0 [facility] Comment on above: Performed By: #### C BC ####[facility] Cvmtrdqfsm1944[address] [place], [place] [address]Dr. Chrissy Frazier Hemoglobin (Bld) [Mass/Vol] 15.4 g/dL Normal 14.0-18.0 [facility] Comment on above: Performed By: #### C BC ####[facility] Zwitrdqkbo2198[address] [place], [place] [address]Dr. Chrissy Frazier IG # 0.05 10e3/ul Critically high 0.00-0.03 [facility] Comment on above: Performed By: #### C BC ####[facility] Qlgtrvauns0158 [place] [id number] Chrissy Freddie IG % 0.3 % Normal 0.0-0.5 [facility] Comment on above: Performed By: #### C BC ####[facility] Lawruhmmhg8265 [place] [address]DrNancy Chrissy Freddie LYMPH # 2.0 103/ul Normal 1.2-3.8 [facility] Comment on above: Performed By: #### C BC ####[facility] Dwjysacqrt3486 [place] [address]DrNancy Chrissy Freddie Lymphocytes/100 WBC (Bld) 12.9 % Critically low 20.5-60.0 [facility] Comment on above: Performed By: #### C BC ####[facility] Klmsfoyauk1876[address] [place], [place] [address]DrNancy Tishrowan Frazier MANUAL DIFF REQ NO Normal [facility] Comment on above: Performed By: #### C BC ####[facility] Djoetevaiz8117 [place] [address]DrNancy Chrissy Freddie MCH (RBC) [Entitic mass] 28.6 pg Normal 25.9-34.0 [facility] Comment on above: Performed By: #### C BC ####[facility] Tziaepsuqf1256 [place] [address]DrNancy Chrissy Freddie MCHC (RBC) [Mass/Vol] 33.3 g/dL Normal 29.9-35.2 [facility] Comment on above: Performed By: #### C BC ####[facility] Xdwerhquym2723[address] [place], [place] [address]DrNancy Frazier MCV (RBC) [Entitic vol] 86.1 fL Normal 80.0-94.0 [facility] Comment on above: Performed By: #### C BC ####[facility] Nhtxceysna565[address] [place], [place] [address]DrNancy Frazier MONO # 0.5 103/ul Normal 0.3-0.8 [facility] Comment on above: Performed By: #### C BC ####[facility] Vgmeievubj9306 [place] [address]Dr. Chrissy Frazier Monocytes/100 WBC (Bld) 3.0 % Normal 1.7-12.0 [facility] Comment on above: Performed By: #### C BC ####[facility] Xqkegfbamj7138 [place] [address]Dr. Chrissy Frazier NEUT # 13.0 103/ul Critically high 1.4-6.5 [facility] Comment on above: Performed By: #### C BC ####[facility] Towlbmnviy9677 [place] [address]Dr. Chrissy Frazier Neutrophils/100 WBC (Bld) 82.5 % Critically high 43.0-75.0 [facility] Comment on above: Performed By: #### C BC ####[facility] Ohbxadbhwh7812[address] [place], [place] [address]Dr. Chrissy Frazier Platelet mean volume (Bld) [Entitic vol] 10.0 fL Normal 9.5-13.5 [facility] Comment on above: Performed By: #### C BC ####[facility] Layrromccg4198[address] [place], [place] [address]Dr. Chrissy Frazier PLT 370 103/ul Normal 150-450 [facility] Comment on above: Performed By: #### C BC ####[facility] Rnixfvnapc[address] [place], [place] [address]Dr. Chrissy Frazier RBC 5.38 106/ul Normal 4.70-6.10 [facility] [facility] Comment on above: Performed By: #### C BC ####[facility] Jicocmwbxh36[address] [place] [id number]. Chrissy Frazier WBC 15.8 103/ul Critically high 4.0-11.0 [facility] [place] Comment on above: Performed By: #### C BC ####[facility] Jsxswjoowa[address] [place], [place] [id number]. Chrissy Frazier CULTURE URINEon 07-01-2022 CULTURE URINE Culture Observations: No growth Normal [facility] Comment on above: Performed By: #### U RCX ####[facility] Gnbnaxkhld[address] [place] [address]Dr. Chrissy Frazier Covid-19 PCR ([facility])on 06-21 SARS-CoV-2 (COVID-19) RNA RHIANNON+probe Ql (Unsp spec) Not detected Normal NOT DETECTED [facility] Comment on above: Result Comment: When [...] for this test is supported by the [employer] of Health and Human Service's declaration that [...] be used). Performed By: #### C VDTBH ####[facility] Gjvrzeczyq[address] [place] [address]Dr. Chrissy Frazier DRUG SCREEN RAPID (URINE)on 07-01-2022 AMP Negative Normal NEGATIVE [facility] Comment on above: Performed By: #### D REYES UAMIC ####[facility] Thyctywjtr9[address] [place] [id number]. Chrissy Frazier BAR Negative Normal NEGATIVE [facility] Comment on above: Performed By: #### D REYES UAMIC ####[facility] Uoeltkafbg5814 [place] [id number]. Chrissy Frazier BUP Negative Normal NEGATIVE [facility] Comment on above: Performed By: #### D REYES UAMIC ####[facility] Frcdhkaljf4224 [place] [id number]. Chrissy Frazier BZO Negative Normal NEGATIVE [facility] Comment on above: Performed By: #### D REYES UAMIC ####[facility] Usriiikjuz07[address] [place], [place] [address]Dr. Chrissy Frazier LAUREN Negative Normal NEGATIVE [facility] Comment on above: Performed By: #### D REYES UAMIC ####[facility] Jxxuuvldmt7[address] [place], [place] [address]Dr. Chrissy Frazier CUT-OFFS SEE BELOW Normal [facility] Comment on above: Result Comment: AMP [...] ng/mL Performed By: #### Amelie CHAMBERS UAMIC ####[facility] Rcipkntzsp[address] [place], [place] [address]Dr. Chrissy Frazier DRUG CUT HEADER DRUG CLASS TEST SYSTEM CUT-OFF CONCENTRATIONS ARE FOLLOWS: Normal [facility] Comment on above: Performed By: #### Amelie CHAMBERS UAMIC ####[facility] Jkzfcoqjiz[address] [place], [place] [address]Dr. Chrissy Frazier mAMP Negative Normal NEGATIVE [facility] Comment on above: Performed By: #### Amelie CHAMBERS UAMIC ####[facility] Ybkmxyaryy72[address] [place], [place] [address]Dr. Chrissy Frazier MTD Negative Normal NEGATIVE [facility] Comment on above: Performed By: #### Amelie CHAMBERS UAMIC ####[facility] Pyxttzmvtt[address] [place], [place] [address]Dr. Chrissy Frazier OPI Negative Normal NEGATIVE [facility] Comment on above: Performed By: #### D REYES UAMIC ####[facility] Iwrfuqyvwn8[address] [place] [address]Dr. Chrissy Frazier OXY Negative Normal NEGATIVE [facility] Comment on above: Performed By: #### D REYES UAMIC ####[facility] Bdnpvloqwc18[address] [place] [address]Dr. Chrissy Frazier PCP Negative Normal NEGATIVE [facility] Comment on above: Performed By: #### D REYES UAMIC ####[facility] Ogdlgydwue89[address] [place] [address]Dr. Chrissy Frazier PPX Negative Normal NEGATIVE [facility] Comment on above: Performed By: #### D REYES UAMIC ####[facility] Evfbpzjymm99[address] [place] [address]Dr. Chrissy Frazier TCA Negative Normal NEGATIVE [facility] Comment on above: Performed By: #### D REYES UAMIC ####[facility] Zhkarhoaoj0721 [place] [address]Dr. Chrissy Frazier THC Positive Abnormal NEGATIVE [facility] Comment on above: Performed By: #### D REYES UAMIC ####[facility] Hourvpevsz48[address] [place] [address]Dr. Chrissy Frazier LACTATE/LACTIC ACIDon 2021 Lactate [Moles/Vol] 4.4 mmol/L Critically high 0.4-1.9 [facility] Comment on above: Performed By: #### L ACT ####[facility] Eteyfpqfqe4[address] [place] [address]Dr. Chrissy Frazier LIPASEon 07-01-2022 Lipase [Catalytic activity/Vol] 57.0 U/L Critically low 73.0-393.0 [facility] Comment on above: Performed By: #### A MY, PHOS, CMP, LIPA ####[facility] Uydlcvruye8[address] [place] [address]Dr. Chrissy Frazier PHOSPHORUSon 07-01-2022 Phosphate [Mass/Vol] 1.4 mg/dL Critically low 2.6-4.7 [facility] Comment on above: Performed By: #### A MY, PHOS, CMP, LIPA ####[facility] Ilnasyldoz7029 [place] [address]Dr. Chrissy Frazier PROF 14(COMP METB)on 022 Albumin [Mass/Vol] 4.2 g/dL Normal 3.4-5.0 [facility] Comment on above: Performed By: #### A MY, PHOS, CMP, LIPA ####[facility] Joobvoknam6[address] [place] [address]Dr. Chrissy Frazier Albumin/Globulin [Mass ratio] 1.1 {ratio} Normal [facility] Comment on above: Performed By: #### A MY, PHOS, CMP, LIPA ####[facility] Mtuzwgcvup6846 [place] [address]Dr. Chrissy Frazier ALP [Catalytic activity/Vol] 73 U/L Normal 46-116 [facility] Comment on above: Performed By: #### A MY, PHOS, CMP, LIPA ####[facility] Cjyhgapfsn9728 [place] [address]Dr. Chrissy Frazier ALT [Catalytic activity/Vol] 43 U/L Normal 16-63 [facility] Comment on above: Performed By: #### A MY, PHOS, CMP, LIPA ####[facility] Tluvaczdbn4382 [place] [address]Dr. Chrissy Frazier Anion gap [Moles/Vol] 19.0 mmol/L Normal [facility] Comment on above: Performed By: #### A MY, PHOS, CMP, LIPA ####[facility] Pgpxblvmkr5728 [place] [address]Dr. Chrissy Frazier AST [Catalytic activity/Vol] 21 U/L Normal 15-37 [facility] Comment on above: Performed By: #### A MY, PHOS, CMP, LIPA ####[facility] Saltzkdukh2445 [place] [address]Dr. Chrissy Frazier Bilirubin [Mass/Vol] 0.5 mg/dL Normal 0.2-1.0 [facility] Comment on above: Performed By: #### A MY, PHOS, CMP, LIPA ####[facility] Zfbcoaojox6229 [place] [address]Dr. Chrissy Frazier Calcium [Mass/Vol] 9.3 mg/dL Normal 8.5-10.[address] [facility] Comment on above: Performed By: #### A MY, PHOS, CMP, LIPA ####[facility] Anmrmiptfv1704 [place] [address]Dr. Chrissy Frazier Chloride [Moles/Vol] 103 mmol/L Normal 98-107 [facility] Comment on above: Performed By: #### A MY, PHOS, CMP, LIPA ####[facility] Cnxfqspvhm[address] [place], [place] [address]Dr. Chrissy Frazier CO2 [Moles/Vol] 21.1 mmol/L Normal 21.0-32.0 [facility] [place] Comment on above: Performed By: #### A MY, PHOS, CMP, LIPA ####[facility] Kgunilnarb9361 [place] [address]Dr. Chrissy Frazier Creatinine [Mass/Vol] 1.44 mg/dL Critically high 0.70-1.30 [facility] Comment on above: Performed By: #### A MY, PHOS, CMP, LIPA ####[facility] Lewlnziryz9[address] [place] [address]Dr. Chrissy Frazier EGFR-AF ARMENIAN >60 Normal >=60 [facility] Comment on above: Performed By: #### A MY, PHOS, CMP, LIPA ####[facility] Mgjszgpiqv7879 [place] [address]Dr. Chrissy Frazier EGFR-NON AF ARMENIAN 57 mL/min/1.73m2 Critically low >=60 [facility] Comment on above: Performed By: #### A MY, PHOS, CMP, LIPA ####[facility] Adyyigmquo9090 [place] [address]Dr. Chrissy Frazier Globulin (S) [Mass/Vol] 3.9 g/dL Normal [facility] Comment on above: Performed By: #### A MY, PHOS, CMP, LIPA ####[facility] Wflwzqrxhm8083 [place] [address]Dr. Chrissy Frazier Glucose [Mass/Vol] 148 mg/dL Critically high 74-106 T [facility] Comment on above: Performed By: #### A MY, PHOS, CMP, LIPA ####[facility] Mwndrmirtf4055 [place] [address]Dr. Chrissy Frazire Potassium [Moles/Vol] 3.1 mmol/L Critically low 3.5-5.1 [facility] Comment on above: Performed By: #### A MY, PHOS, CMP, LIPA ####[facility] Gtsoutogrg[address] [place] [address]Dr. Chrissy Frazier Protein [Mass/Vol] 8.1 g/dL Normal 6.4-8.[address] [facility] Comment on above: Performed By: #### A MY, PHOS, CMP, LIPA ####[facility] Guahollxxb2893 [place] [address]Dr. Chrissy Frazier Sodium [Moles/Vol] 140 mmol/L Normal 136-[address] [facility] Comment on above: Performed By: #### A MY, PHOS, CMP, LIPA ####[facility] Uosopjiptq9367 [place] [address]Dr. Chrissy Frazier Urea nitrogen [Mass/Vol] 10.0 mg/dL Normal 7.0-18.0 [facility] Comment on above: Performed By: #### A MY, PHOS, CMP, LIPA ####[facility] Xittgldogy5994 [place] [address]Dr. Chrissy Frazire Urea nitrogen/Creatinine [Mass ratio] 6.9 mg/mg Normal [facility] Comment on above: Performed By: #### A MY, PHOS, CMP, LIPA ####[facility] Phiagdprsb3703 [place] [address]Dr. Chrissy Frazier UA RANDOM W/MICROSCOPICon BACTERIA TRACE Abnormal NONE SEEN [facility] Comment on above: Performed By: #### D RUGRPD, UAMIC ####[facility] Whvlamjvnc9255 [place] [address]Dr. Chrissy Frazier Bilirubin Ql (U) Negative Normal NEGATIVE [facility] Comment on above: Performed By: #### D REYES, UAMIC ####[facility] Tysdcnnqvt18[address] [place], [place] [address]Dr. Chrissy Frazier CAST NONE SEEN Normal NONE SEEN [facility] Comment on above: Performed By: #### D REYES, UAMIC ####[facility] Rqhxfcixru5255[address] [place], [place] [address]Dr. Chrissy Frazier Clarity (U) CLEAR Normal CLEAR [facility] Comment on above: Performed By: #### D REYES UAMIC ####[facility] Oruuqqpxnf4[address] [place], [place] [address]Dr. Chrissy Frazier Color (U) YELLOW Normal YELLOW [facility] Comment on above: Performed By: #### Amelie CHAMBERS UAMIC ####[facility] Kdseqpaozj69[address] [place], [place] [address]Dr. Chrissy Frazier Crystals LM Nom (Urine sed) NONE SEEN Normal NONE SEEN [facility] Comment on above: Performed By: #### Amelie CHAMBERS UAMIC ####[facility] Takccijuxx7763[address] [place], [place] [address]Dr. Chrissy Frazier Epithelial cells LM Ql (Urine sed) RARE Normal NONE SEEN /RARE [facility] Comment on above: Performed By: #### Amelie CHAMBERS UAMIC ####[facility] Qqcohnocre05[address] [place], [place] [address]Dr. Chrissy Frazier Glucose Ql (U) Negative Normal NEGATIVE The [facility] Comment on above: Performed By: #### D REYES, UAMIC ####[facility] Jpdxtyhvkt2[address] [place], [place] [address]Dr. Chrissy Frazier Hemoglobin Ql (U) Negative Normal NEGATIVE [facility] Comment on above: Performed By: #### Amelie CHAMBERS, UAMIC ####[facility] Hedvzydkeo9[address] [place], [place] [address]Dr. Chrissy Frazier Ketones Ql (U) 40 mg/dl Abnormal NEGATIVE [facility] Comment on above: Performed By: #### Amelie CHAMBERS UAMIC ####[facility] Aqyppyiqna3773 [place] [address]Dr. Chrissy Freddie LEUKOCYTES Negative Normal NEGATIVE [facility] Comment on above: Performed By: #### Amelie CHAMBERS UAMIC ####[facility] Tofhxplslr1755 [place] [address]Dr. Tishrowan Freddie MUCOUS MODERATE Abnormal NONE SEEN [facility] Comment on above: Performed By: #### Amelie CHAMBERS UAMIC ####[facility] Aylhudtneq8529 [place] [address]Dr. Chrissy Frazier Nitrite Ql (U) Negative Normal NEGATIVE [facility] Comment on above: Performed By: #### Amelie CHAMBERS UAMIC ####[facility] Xoohyybmxe7049 [place] [address]Dr. Chrissy Frazier pH (U) 6.0 [pH] Normal 5-9 [facility] Comment on above: Performed By: #### Amelie CHAMBERS UAMIC ####[facility] Sztbjaxrtt[address] [place], [place] [address]Dr. Chrissy Frazeir RBC 0-2 Normal 0-2 [facility] Comment on above: Performed By: #### Amelie CHAMBERS UAMIC ####[facility] Jmyzftoovt[address] [place], [place] [address]Dr. Chrissy Frazier SPEC GRAVITY 1.020 Normal 1.005-<=1.025 [facility] Comment on above: Performed By: #### Amelie CHAMBERS UAMIC ####[facility] Dmwvtmcqsz1226 [place] [address]Dr. Tishrowan Frazier UA PROTEIN Negative Normal NEGATIVE/ TRACE [facility] Comment on above: Performed By: #### Amelie CHAMBERS UAMIC ####[facility] Ykxzfooqcj60[address] [place], [place] [address]Dr. Chrissy Frazier Urobilinogen Qn (U) 0.2 {Estrellita'U}/dL Normal 0.2 - 1. 0 [facility] Comment on above: Performed By: #### Amelie CHAMBERS UAMIC ####[facility] Qinbpezqiq4664 [place], [place] [address]Re. Chrissy Frazier WBC 0-2 Abnormal NONE SEEN [facility] Comment on above: Performed By: #### D REYES UAMIC ####[facility] Ixjgjelzve8502 [place], [place] [address]Jx. Chrissy Frazier XR ABD FLAT UP_PA Enoch 07-01 XR ABD FLAT UP_PA CH Normal [facility] Covid-19 PCR (CVDTB)on SARS-CoV-2 (COVID-19) RNA RHIANNON+probe Ql (Unsp spec) Not detected Normal NOT DETECTED [facility] Comment on above: Result Comment: When [...] for this test is supported by the [place] of Health and Human Service's declaration that [...] be used). Performed By: #### C VDTBH ####[facility] Tcsyyrstav0336 [place], [place] [address]Kv. Chrissy Frazier SYMPTOMATIC COVID-19 ANTIGEN on 04-23-2022 EUA Statement SEE BELOW Normal The [facility] Comment on above: Result Comment: This test [...] revoked sooner. Performed By: #### C VDAGS ####[facility] Nqbfpsbbnp100[address] [place], [place] [address]Dr. Chrissy Frazier SARS-CoV-2 (COVID-19) RNA RHIANNON+probe Ql (Unsp spec) Negative Normal NEGATIVE [facility] Comment on above: Performed By: #### C VDAGS ####[facility] Czqqelplls3986[address] [place], [place] [address]Dr. Chrissy Frazier AMYLASEon 04-04-2022 Amylase [Catalytic activity/Vol] 40 U/L Normal 25-115 [facility] Comment on above: Performed By: #### C MP, TERRENCE, LIPA ####[facility] Mmduubfoln01[address] [place], [place] [address]Dr. Chrissy Frazier CBC AUTO DIFFon 04-04-2022 BASO # 0.1 103/ul Normal 0.0-0.1 [facility] Comment on above: Performed By: #### C BC ####[facility] Vjvlnqntdf1225[address] [place], [place] [address]Dr. Chrissy Frazier Basophils/100 WBC (Bld) 0.4 % Normal 0.2-2.0 [facility] Comment on above: Performed By: #### C BC ####[facility] Ruslewftyc0899[address] [place], [place] [address]Dr. Chrissy Frazier EO # 0.1 103/ul Normal 0.0-0.7 [facility] Comment on above: Performed By: #### C BC ####[facility] Jyczzlhubb60[address] [place], [place] [address]Dr. Chrissy Frazier Eosinophils/100 WBC (Bld) 0.6 % Critically low 0.9-7.0 [facility] Comment on above: Performed By: #### C BC ####[facility] Vsgjsioxuk0126 [place] [address]Dr. Chrissy Frazier Erythrocyte distribution width (RBC) [Ratio] 13.2 % Normal 11.0-15.0 [facility] Comment on above: Performed By: #### C BC ####[facility] Dsjxhrdxxl9813 [place] [address]Dr. Chrissy Frazier Hematocrit (Bld) [Volume fraction] 48.3 % Normal 42.0-54.0 [facility] Comment on above: Performed By: #### C BC ####[facility] Gvjpxycrdy032[address] [place], [place] [address]Dr. Chrissy Frazier Hemoglobin (Bld) [Mass/Vol] 16.1 g/dL Normal 14.0-18.0 [facility] Comment on above: Performed By: #### C BC ####[facility] Ztwrkngpnz47[address] [place], [place] [address]Dr. Chrissy Frazier IG # 0.12 10e3/ul Critically high 0.00-0.03 [facility] Comment on above: Performed By: #### C BC ####[facility] Uzhxvkhtxp7039[address] [place], [place] [address]Dr. Chrissy Frazier IG % 0.9 % Critically high 0.0-0.5 [facility] Comment on above: Performed By: #### C BC ####[facility] Zzgttnvzur[address] [place], [place] [address]Dr. Chrissy Frazier LYMPH # 3.0 103/ul Normal 1.2-3.8 [facility] Comment on above: Performed By: #### C BC ####[facility] Vbysgndgkm6104[address] [place], [place] [address]Dr. Chrissy Frazier Lymphocytes/100 WBC (Bld) 22.3 % Normal 20.5-60.0 [facility] Comment on above: Performed By: #### C BC ####[facility] Eushcbzubi[address] [place], [place] [address]Dr. Chrissy Frazier MANUAL DIFF REQ NO Normal [facility] Comment on above: Performed By: #### C BC ####[facility] Hefjihyxrd0552 [place] [id number]. Chrissy Freddie MCH (RBC) [Entitic mass] 28.6 pg Normal 25.9-34.0 [facility] Comment on above: Performed By: #### C BC ####[facility] Dywsfpgdtd0504 [place] [address]Dr. Chrissy Freddie MCHC (RBC) [Mass/Vol] 33.3 g/dL Normal 29.9-35.2 [facility] Comment on above: Performed By: #### C BC ####[facility] Joqimtfzyo6800 [place] [address]Dr. Chrissy Freddie MCV (RBC) [Entitic vol] 85.9 fL Normal 80.0-94.0 [facility] Comment on above: Performed By: #### C BC ####[facility] Zenwcmqwwa89[address] [place], [place] [address]Dr. Chrissy Frazier MONO # 0.8 103/ul Normal 0.3-0.8 [facility] Comment on above: Performed By: #### C BC ####[facility] Prmjhyqefd2245 [place] [address]Dr. Chrissy Frazier Monocytes/100 WBC (Bld) 5.7 % Normal 1.7-12.0 [facility] Comment on above: Performed By: #### C BC ####[facility] Cscrtagemp4265 [place] [address]Dr. Chrissy Frazier NEUT # 9.3 103/ul Critically high 1.4-6.5 [facility] Comment on above: Performed By: #### C BC ####[facility] [address]uxjcyebse[address] [place], [place] [address]Dr. Chrissy Frazier Neutrophils/100 WBC (Bld) 70.1 % Normal 43.0-75.0 [facility] Comment on above: Performed By: #### C BC ####[facility] Tgrfxaumrj[address] [place], [place] [address]Dr. Chrissy Frazier Platelet mean volume (Bld) [Entitic vol] 10.3 fL Normal 9.5-13.5 [facility] Comment on above: Performed By: #### C BC ####[facility] Oilledamhc3970 [place] [address]Dr. Tishrowan Frazier PLT 461 103/ul Critically high 150-450 [facility] Comment on above: Performed By: #### C BC ####[facility] Ctidrmtzdr4621 [place] [address]Dr. Chrissy Frazier RBC 5.62 106/ul Normal 4.70-6.10 [facility] Comment on above: Performed By: #### C BC ####[facility] Ejgncpraqp8950 [place] [address]Dr. Chrissy Frazier WBC 13.3 103/ul Critically high 4.0-11.0 [facility] [place] Comment on above: Performed By: #### C BC ####[facility] Xgrnfwothz1569 [place] [address]Dr. Chrissy Frazier LIPASEon 04-04-2022 Lipase [Catalytic activity/Vol] 118.0 U/L Normal 73.0-393.0 [facility] Comment on above: Performed By: #### C MP, TERRENCE, LIPA ####[facility] Npochkzjjr9655 [place] [address]Dr. Chrissy Frazier PROF 14(COMP METB)on 022 Albumin [Mass/Vol] 4.3 g/dL Normal 3.4-5.0 [facility] Comment on above: Performed By: #### C MP, TERRENCE, LIPA ####[facility] Pnchjvhuyy3334 [place] [address]Dr. Chrissy Frazier Albumin/Globulin [Mass ratio] 1.0 {ratio} Normal [facility] Comment on above: Performed By: #### C MP, TERRENCE, LIPA ####[facility] Qazwiozgfr4607 [place] [address]Dr. Chrissy Frazier ALP [Catalytic activity/Vol] 84 U/L Normal 46-116 [facility] Comment on above: Performed By: #### C MP, TERRENCE, LIPA ####[facility] Ccpdkyzilh0939 [place] [address]Dr. Chrissy Frazier ALT [Catalytic activity/Vol] 81 U/L Critically high 16-63 [facility] Comment on above: Performed By: #### C TERRENCE ADAIR LIPA ####[facility] Bzenwborjl3581 [place] [address]Dr. Chrissy Frazier Anion gap [Moles/Vol] 17.9 mmol/L Normal [facility] Comment on above: Performed By: #### C TERRENCE ADAIR LIPA ####[facility] Movykcdcuh2961 [place] [address]Dr. Chrissy Frazier AST [Catalytic activity/Vol] 25 U/L Normal 15-37 [facility] Comment on above: Performed By: #### C TERRENCE ADAIR LIPA ####[facility] Mzjjoujiak[address] [place], [place] [address]Dr. Chrissy Frazier Bilirubin [Mass/Vol] 0.5 mg/dL Normal 0.2-1.0 [facility] Comment on above: Performed By: #### C TERRENCE ADAIR LIPA ####[facility] Srigyhnovg[address] [place], [place] [address]Dr. Chrissy Frazier Calcium [Mass/Vol] 9.6 mg/dL Normal 8.5-10.1 [facility] Comment on above: Performed By: #### C TERRENCE ADAIR LIPA ####[facility] Xmowcdyaqe9015 [place] [address]Dr. Chrissy Frazier Chloride [Moles/Vol] 101 mmol/L Normal 98-107 [facility] Comment on above: Performed By: #### C TERRENCE ADAIR, LIPA ####[facility] Loqyrhxnpg7901 [place] [address]Dr. Chrissy Frazier CO2 [Moles/Vol] 18.6 mmol/L Critically low 21.0-32.0 [facility] Comment on above: Performed By: #### C TERRENCE ADAIR, LIPA ####[facility] Czihpczfjd1413 [place] [address]Dr. Chrissy Frazier Creatinine [Mass/Vol] 1.39 mg/dL Critically high 0.70-1.30 [facility] Comment on above: Performed By: #### C MP, TERRENCE, LIPA ####[facility] Gdzmcupdxc8205 [place] [address]Dr. Chrissy Frazier EGFR-AF ARMENIAN >60 Normal >=60 [facility] Comment on above: Performed By: #### C MP, TERRENCE, LIPA ####[facility] Jclcxgistp6438 [place] [address]Dr. Tishlan Frazier EGFR-NON AF ARMENIAN 59 mL/min/1.73m2 Critically low >=60 [facility] Comment on above: Performed By: #### C MP, TERRENCE, LIPA ####[facility] Ojrsurjsmf[address] [place] [address]Dr. Chrissy Frazier Globulin (S) [Mass/Vol] 4.3 g/dL Normal [facility] Comment on above: Performed By: #### C MP, TERRENCE, LIPA ####[facility] Picotkexim9231 [place] [address]Dr. Chrissy Frazier Glucose [Mass/Vol] 132 mg/dL Critically high 74-[address] [facility] Comment on above: Performed By: #### C MP, TERRENCE, LIPA ####[facility] Ufccryissg[address] [place], [place] [address]Dr. Chrissy Frazier Potassium [Moles/Vol] 3.5 mmol/L Normal 3.5-5.1 [facility] Comment on above: Performed By: #### C MP, TERRENCE, LIPA ####[facility] Urjxtduldb4231 [place] [address]Dr. Chrissy Frazier Protein [Mass/Vol] 8.6 g/dL Critically high 6.4-8.[address] [facility] [facility] Comment on above: Performed By: #### C MP, TERRENCE, LIPA ####[facility] Dauzjpxmnr2[address] [place], [place] [address]Dr. Tishrowan Frazier Sodium [Moles/Vol] 134 mmol/L Critically low 136-145 [facility] Comment on above: Performed By: #### C MP, TERRENCE, LIPA ####[facility] Sdlsntzbod8[address] [place], [place] [address]Dr. Chrissy Frazier Urea nitrogen [Mass/Vol] 8.0 mg/dL Normal 7.0-18.0 [facility] Comment on above: Performed By: #### C TERRENCE ADAIR LIPA ####[facility] [address]kbq[address] [place] [address]Dr. Chrissy Frazier Urea nitrogen/Creatinine [Mass ratio] 5.8 mg/mg Normal [facility] Comment on above: Performed By: #### C TERRENCE ADAIR LIPA ####[facility] Ubthttrign[address] [place] [address]Dr. Chrissy Freddie XR ABD FLAT UP_PA Enoch 04-04 XR ABD FLAT UP_PA CH Normal [facility] AMMONIAon 03-31-2022 Ammonia (P) [Moles/Vol] 19 umol/L Normal 11-32 [facility] Comment on above: Performed By: #### A MM ####[facility] Efgllfrxqa4091[address] [place], [place] [address]Dr. Chrissy Freddie CBC AUTO DIFFon 03-31-2022 BASO # 0.1 103/ul Normal 0.0-0.1 [facility] Comment on above: Performed By: #### C BC ####[facility] Juegjpwcbz8564[address] [place], [place] [address]Dr. Chrissy Freddie Basophils/100 WBC (Bld) 0.5 % Normal 0.2-2.0 [facility] Comment on above: Performed By: #### C BC ####[facility] Emwtpvkhku5581[address] [place], [place] [address]Dr. Chrissy Freddie EO # 0.2 103/ul Normal 0.0-0.7 [facility] Comment on above: Performed By: #### C BC ####[facility] Aykohflzka1377[address] [place], [place] [address]Dr. Tishrowan Frazier Eosinophils/100 WBC (Bld) 1.6 % Normal 0.9-7.0 [facility] Comment on above: Performed By: #### C BC ####[facility] Mkuztinyad680[address] [place], [place] [address]Dr. Tishrowan Frazier Erythrocyte distribution width (RBC) [Ratio] 13.2 % Normal 11.0-15.0 [facility] Comment on above: Performed By: #### C BC ####[facility] Eywmuycpwt[address] [place] [address]Dr. Chrissy Frazier Hematocrit (Bld) [Volume fraction] 42.1 % Normal 42.0-54.0 [facility] Comment on above: Performed By: #### C BC ####[facility] Ejjzsaokjr[address] [place] [address]Dr. Chrissy Frazier Hemoglobin (Bld) [Mass/Vol] 14.3 g/dL Normal 14.0-18.0 [facility] Comment on above: Performed By: #### C BC ####[facility] Krfbtscerf3835[address] [place], [place] [address]Dr. Chrissy Frazier IG # 0.05 10e3/ul Critically high 0.00-0.03 [facility] Comment on above: Performed By: #### C BC ####[facility] Ecorgdqyuj875[address] [place], [place] [address]Dr. Chrissy Frazier IG % 0.5 % Normal 0.0-0.5 [facility] Comment on above: Performed By: #### C BC ####[facility] Sxnapbzskr5234[address] [place], [place] [address]DrNancy Frazier LYMPH # 2.9 103/ul Normal 1.2-3.8 [facility] Comment on above: Performed By: #### C BC ####[facility] Ejurlkdxkn4006[address] [place], [place] [address]DrNancy Frazier Lymphocytes/100 WBC (Bld) 25.7 % Normal 20.5-60.0 [facility] Comment on above: Performed By: #### C BC ####[facility] Bqrbejqygl6136[address] [place], [place] [address]DrNancy Frazier MANUAL DIFF REQ NO Normal [facility] Comment on above: Performed By: #### C BC ####[facility] Mpjvuwqonf3092[address] [place], [place] [address]DrNancy Frazier MCH (RBC) [Entitic mass] 29.2 pg Normal 25.9-34.0 [facility] Comment on above: Performed By: #### C BC ####[facility] Pwxyijxsyp3[address] [place] [address]DrNancy Frazier MCHC (RBC) [Mass/Vol] 34.0 g/dL Normal 29.9-35.2 [facility] Comment on above: Performed By: #### C BC ####[facility] Iuiwhqgrtm615[address] [place], [place] [address]DrNancy Frazier MCV (RBC) [Entitic vol] 85.9 fL Normal 80.0-94.0 [facility] Comment on above: Performed By: #### C BC ####[facility] Dfmxrouvpm1482[address] [place], [place] [address]DrNancy Frazier MONO # 1.0 103/ul Critically high 0.3-0.8 [facility] Comment on above: Performed By: #### C BC ####[facility] Ushjysxloy566[address] [place], [place] [address]DrNancy Frazier Monocytes/100 WBC (Bld) 8.6 % Normal 1.7-12.0 [facility] Comment on above: Performed By: #### C BC ####[facility] Xlfffiziuz586[address] [place], [place] [address]DrNancy Frazier NEUT # 7.0 103/ul Critically high 1.4-6.5 [facility] Comment on above: Performed By: #### C BC ####[facility] Afctdsrrhh3871[address] [place], [place] [address]DrNancy Frazier Neutrophils/100 WBC (Bld) 63.1 % Normal 43.0-75.0 [facility] Comment on above: Performed By: #### C BC ####[facility] Gtozkaxsxq512[address] [place], [place] [address]DrNancy Frazier Platelet mean volume (Bld) [Entitic vol] 10.4 fL Normal 9.5-13.5 [facility] Comment on above: Performed By: #### C BC ####[facility] Imbrammddf8855[address] [place], [place] [address]DrNancy Frazier PLT 308 103/ul Normal 150-450 [facility] Comment on above: Performed By: #### C BC ####[facility] Ylpjfmcxls[address] [place] [address]Dr. Chrissy Frazier RBC 4.90 106/ul Normal 4.70-6.10 [facility] Comment on above: Performed By: #### C BC ####[facility] Exmohzxbrb69[address] [place] [address]Dr. Chrissy Frazier WBC 11.1 103/ul Critically high 4.0-11.0 [facility] Comment on above: Performed By: #### C BC ####[facility] Ybacyfgqxw8657 [place] [address]DrNancy Frazier PROF 14(COMP METB)on 022 Albumin [Mass/Vol] 3.5 g/dL Normal 3.4-5.0 [facility] Comment on above: Performed By: #### C MP ####[facility] Xnskcnbvua4401[address] [place], [place] [address]Dr. Chrissy Frazier Albumin/Globulin [Mass ratio] 0.9 {ratio} Normal [facility] Comment on above: Performed By: #### C MP ####[facility] Cxdefkdfqk6621[address] [place], [place] [address]Dr. Chrissy Frazier ALP [Catalytic activity/Vol] 68 U/L Normal 46-116 [facility] Comment on above: Performed By: #### C MP ####[facility] Uowjeywksd[address] [place] [address]Dr. Chrissy Frazier ALT [Catalytic activity/Vol] 113 U/L Critically high 16-63 [facility] Comment on above: Performed By: #### C MP ####[facility] Wqrlwofpah68[address] [place] [address]DrNancy Frazier Anion gap [Moles/Vol] 14.0 mmol/L Normal [facility] Comment on above: Performed By: #### C MP ####[facility] Oywhishqnz7537[address] [place], [place] [address]Dr. Chrissy Frazier AST [Catalytic activity/Vol] 31 U/L Normal 15-37 [facility] Comment on above: Performed By: #### C MP ####[facility] Qltoubgzlo5[address] [place] [address]Dr. Chrissy Frazier Bilirubin [Mass/Vol] 0.6 mg/dL Normal 0.2-1.0 [facility] Comment on above: Performed By: #### C MP ####[facility] Dvmmjftsba8893[address] [place], [place] [address]Dr. Chrissy Frazier Calcium [Mass/Vol] 8.4 mg/dL Critically low 8.5-10.1 [facility] Comment on above: Performed By: #### C MP ####[facility] Bihraphttk2941[address] [place], [place] [address]Dr. Chrissy Frazier Chloride [Moles/Vol] 101 mmol/L Normal 98-107 [facility] Comment on above: Performed By: #### C MP ####[facility] Jxrethomsk7633[address] [place], [place] [address]Dr. Chrissy Frazier CO2 [Moles/Vol] 24.2 mmol/L Normal 21.0-32.0 [facility] Comment on above: Performed By: #### C MP ####[facility] Inywxzfixf7496[address] [place], [place] [address]Dr. Chrissy Frazier Creatinine [Mass/Vol] 1.15 mg/dL Normal 0.70-1.30 [facility] Comment on above: Performed By: #### C MP ####[facility] Yxkwbouggw9431[address] [place], [place] [address]Dr. Chrissy Freddie EGFR-AF ARMENIAN >60 Normal >=60 [facility] Comment on above: Performed By: #### C MP ####[facility] Fzrvvudfuu8103[address] [place], [place] [address]Dr. Tishrowan Freddie EGFR-NON AF ARMENIAN >60 Normal >=60 [facility] Comment on above: Performed By: #### C MP ####[facility] Dmokdmxtec795[address] [place], [place] [address]Dr. Chrissy Frazier Globulin (S) [Mass/Vol] 3.8 g/dL Normal [facility] Comment on above: Performed By: #### C MP ####[facility] Stvwmwjxqy[address] [place] [address]Dr. Chrissy Frazier Glucose [Mass/Vol] 100 mg/dL Normal 74-106 [facility] Comment on above: Performed By: #### C MP ####[facility] Sucahkskgm[address] [place] [address]Dr. Tishrowan Frazier Potassium [Moles/Vol] 3.2 mmol/L Critically low 3.5-5.1 [facility] Comment on above: Performed By: #### C MP ####[facility] Jtihixqhwj8[address] [place] [address]Dr. Chrissy Freddie Protein [Mass/Vol] 7.3 g/dL Normal 6.4-8.2 [facility] Comment on above: Performed By: #### C MP ####[facility] Frxdqnkjha7249[address] [place], [place] [address]Dr. Chrissy Frazier Sodium [Moles/Vol] 136 mmol/L Normal 136-145 [facility] Comment on above: Performed By: #### C MP ####[facility] Tlqmxtztxw5637[address] [place], [place] [address]Dr. Chrissy Freddie Urea nitrogen [Mass/Vol] 13.0 mg/dL Normal 7.0-18.0 [facility] Comment on above: Performed By: #### C MP ####[facility] Ftydkwjmsf579[address] [place], [place] [address]Dr. Tishrowan Freddie Urea nitrogen/Creatinine [Mass ratio] 11.3 mg/mg Normal [facility] Comment on above: Performed By: #### C MP ####[facility] Kunkgkxkfw065[address] [place], [place] [address]Dr. Tishrowan Frazier AMMONIAon 03-30-2022 Ammonia (P) [Mass/Vol] ug/dL Critically low 11-32 [facility] Comment on above: Performed By: #### A MM ####[facility] Cwaxefwtra4063[address] [place], [place] [address]Dr. Chrissy Frazier CBC AUTO DIFFon 03-30-2022 BASO # 0.1 103/ul Normal 0.0-0.1 [facility] Comment on above: Performed By: #### C BC ####[facility] Pxbtmshebq034[address] [place], [place] [address]Dr. Chrissy Freddie Basophils/100 WBC (Bld) 0.5 % Normal 0.2-2.0 [facility] Comment on above: Performed By: #### C BC ####[facility] Reqmhkbtgu6875[address] [place], [place] [address]Dr. Chrissy Frazier EO # 0.1 103/ul Normal 0.0-0.7 [facility] Comment on above: Performed By: #### C BC ####[facility] Tmlrmgvyia817[address] [place], [place] [address]Dr. Chrissy Frazier Eosinophils/100 WBC (Bld) 1.1 % Normal 0.9-7.0 [facility] Comment on above: Performed By: #### C BC ####[facility] Ahcfbdirry4923[address] [place], [place] [address]Dr. Tishrowan Frazier Erythrocyte distribution width (RBC) [Ratio] 13.4 % Normal 11.0-15.0 [facility] Comment on above: Performed By: #### C BC ####[facility] Gmzwjslics2129[address] [place], [place] [address]Dr. Chrissy Freddie Hematocrit (Bld) [Volume fraction] 45.8 % Normal 42.0-54.0 [facility] Comment on above: Performed By: #### C BC ####[facility] Wqqcuodhxp7613[address] [place], [place] [address]Dr. Chrissy Freddie Hemoglobin (Bld) [Mass/Vol] 14.9 g/dL Normal 14.0-18.0 [facility] Comment on above: Performed By: #### C BC ####[facility] Kfdlyynrwp6274[address] [place], [place] [address]Dr. Chrissy Frazier IG # 0.05 10e3/ul Critically high 0.00-0.03 [facility] Comment on above: Performed By: #### C BC ####[facility] Imxdabzgkb0101[address] [place], [place] [address]DrNancy Frazier IG % 0.5 % Normal 0.0-0.5 [facility] Comment on above: Performed By: #### C BC ####[facility] Djsqslmkeu[address] [place] [address]DrNancy Tishrowan Frazier LYMPH # 3.0 103/ul Normal 1.2-3.8 [facility] Comment on above: Performed By: #### C BC ####[facility] Ftbajdzybv4108 [place] [address]DrNancy Frazier Lymphocytes/100 WBC (Bld) 30.2 % Normal 20.5-60.0 [facility] Comment on above: Performed By: #### C BC ####[facility] Opepvhqmye7819[address] [place], [place] [address]DrNancy Frazier MANUAL DIFF REQ NO Normal [facility] Comment on above: Performed By: #### C BC ####[facility] Bgubkfvncy3916[address] [place], [place] [address]Dr. Chrissy Frazier MCH (RBC) [Entitic mass] 28.4 pg Normal 25.9-34.0 [facility] Comment on above: Performed By: #### C BC ####[facility] Teqilidxei14[address] [place], [place] [id number]. Chrissy Freddie MCHC (RBC) [Mass/Vol] 32.5 g/dL Normal 29.9-35.2 [facility] Comment on above: Performed By: #### C BC ####[facility] Kuxshvzohe16[address] [place], [place] [id number] Frazier MCV (RBC) [Entitic vol] 87.4 fL Normal 80.0-94.0 [facility] Comment on above: Performed By: #### C BC ####[facility] Fxbiwxbxni045[address] [place], [place] [id number] Frazier MONO # 0.8 103/ul Normal 0.3-0.8 [facility] Comment on above: Performed By: #### C BC ####[facility] Utuxybsrti910[address] [place], [place] [id number] Frazier Monocytes/100 WBC (Bld) 7.9 % Normal 1.7-12.0 [facility] Comment on above: Performed By: #### C BC ####[facility] Pixzsexibt44[address] [place] [address]Dr. Tishrowan Frazier NEUT # 5.9 103/ul Normal 1.4-6.5 [facility] Comment on above: Performed By: #### C BC ####[facility] Jtvuxanprv4588 [place] [address]Dr. Chrissy Frazier Neutrophils/100 WBC (Bld) 59.8 % Normal 43.0-75.0 [facility] Comment on above: Performed By: #### C BC ####[facility] Ulobxamaar0489 [place] [address]Dr. Chrissy Frazier Platelet mean volume (Bld) [Entitic vol] 10.1 fL Normal 9.5-13.5 [facility] Comment on above: Performed By: #### C BC ####[facility] Uxjovbcdid0319[address] [place], [place] [address]Dr. Chrissy Frazier PLT 320 103/ul Normal 150-450 [facility] Comment on above: Performed By: #### C BC ####[facility] Xteredastj8937[address] [place], [place] [address]Dr. Chrissy Frazier RBC 5.24 106/ul Normal 4.70-6.10 [facility] Comment on above: Performed By: #### C BC ####[facility] Wdyliysifg725[address] [place], [place] [address]Dr. Chrissy Frazier WBC 9.9 103/ul Normal 4.0-11.0 [facility] Comment on above: Performed By: #### C BC ####[facility] Gbcvzulgpc9128 [place] [id number] Frazier PROF 14(COMP METB)on 022 Albumin [Mass/Vol] 3.9 g/dL Normal 3.4-5.0 [facility] Comment on above: Performed By: #### C MP ####[facility] Acieavzbvw6423[address] [place], [place] [address]DrNancy Frazier Albumin/Globulin [Mass ratio] 1.1 {ratio} Normal [facility] Comment on above: Performed By: #### C MP ####[facility] Kiogltyqdn6786 [place] [address]Dr. Chrissy Frazier ALP [Catalytic activity/Vol] 88 U/L Normal 46-116 [facility] Comment on above: Performed By: #### C MP ####[facility] Guvubahzvj89[address] [place] [address]Dr. Chrissy Frazier ALT [Catalytic activity/Vol] 161 U/L Critically high 16-63 [facility] Comment on above: Performed By: #### C MP ####[facility] Uhtdpeersf1137[address] [place], [place] [address]Dr. Chrissy Freddie Anion gap [Moles/Vol] 12.3 mmol/L Normal [facility] Comment on above: Performed By: #### C MP ####[facility] Hpduejfdeu5896[address] [place], [place] [address]Dr. Chrissy Freddie AST [Catalytic activity/Vol] 64 U/L Critically high 15-37 [facility] Comment on above: Performed By: #### C MP ####[facility] Govptrjkjq0032[address] [place], [place] [address]Dr. Chrissy Freddie Bilirubin [Mass/Vol] 0.8 mg/dL Normal 0.2-1.0 [facility] Comment on above: Performed By: #### C MP ####[facility] Mkibddyjsz7339[address] [place], [place] [address]Dr. Chrissy Freddie Calcium [Mass/Vol] 8.4 mg/dL Critically low 8.5-10.1 [facility] Comment on above: Performed By: #### C MP ####[facility] Ohqgxuagdm2466[address] [place], [place] [address]Dr. Chrissy Frazier Chloride [Moles/Vol] 103 mmol/L Normal 98-107 [facility] Comment on above: Performed By: #### C MP ####[facility] Mjksoqvzrs0965[address] [place], [place] [address]Dr. Chrissy Frazier CO2 [Moles/Vol] 26.5 mmol/L Normal 21.0-32.0 [facility] Comment on above: Performed By: #### C MP ####[facility] Z[address]czgcuoha9[address] [place] [address]Dr. Chrissy Frazier Creatinine [Mass/Vol] 1.24 mg/dL Normal 0.70-1.30 [facility] Comment on above: Performed By: #### C MP ####[facility] Dqhksltnml7736 [place] [address]Dr. Chrissy Frazier EGFR-AF ARMENIAN >60 Normal >=60 [facility] Comment on above: Performed By: #### C MP ####[facility] Jlnndpvgzi5464 [place] [address]Dr. Chrissy Frazier EGFR-NON AF ARMENIAN >60 Normal >=60 [facility] Comment on above: Performed By: #### C MP ####[facility] Bqmhnlqwna69[address] [place], [place] [address]Dr. Chrissy Frazier Globulin (S) [Mass/Vol] 3.7 g/dL Normal [facility] Comment on above: Performed By: #### C MP ####[facility] Asmwjrwxte020[address] [place], [place] [address]Dr. Chrissy Frazier Glucose [Mass/Vol] 108 mg/dL Critically high 74-[address] [facility] Comment on above: Performed By: #### C MP ####[facility] Rscxptvrwi9[address] [place] [address]Dr. Chrissy Frazier Potassium [Moles/Vol] 3.8 mmol/L Normal 3.5-5.1 [facility] Comment on above: Performed By: #### C MP ####[facility] Uaftmjurdy6934 [place] [address]Dr. Chrissy Frazier Protein [Mass/Vol] 7.6 g/dL Normal 6.4-8.[address] [facility] Comment on above: Performed By: #### C MP ####[facility] Jnabigxqqn6638 [place] [address]Dr. Chrissy Frazier Sodium [Moles/Vol] 138 mmol/L Normal 136-[address] [facility] Comment on above: Performed By: #### C MP ####[facility] Ukkhxaltij1726 [place] [address]Dr. Chrissy Frazier Urea nitrogen [Mass/Vol] 12.0 mg/dL Normal 7.0-18.0 [facility] Comment on above: Performed By: #### C MP ####[facility] Qarhvlivwe158[address] [place], [place] [address]Dr. Chrissy Frazier Urea nitrogen/Creatinine [Mass ratio] 9.7 mg/mg Normal [facility] Comment on above: Performed By: #### C MP ####[facility] Ardiehavio505[address] [place], [place] [address]Dr. Chrissy Frazier AMMONIAon 03-29-2022 Ammonia (P) [Moles/Vol] 27 umol/L Normal 11-32 [facility] Comment on above: Performed By: #### A MM ####[facility] Tgrnmqymcv3666[address] [place], [place] [address]Dr. Chrissy Frazier AMYLASEon 03-29-2022 Amylase [Catalytic activity/Vol] 29 U/L Normal 25-115 [facility] Comment on above: Performed By: #### L IPA, TERRENCE ####[facility] Rdmsbrtzng983[address] [place], [place] [address]Dr. Chrissy Frazier CBC AUTO DIFFon 03-29-2022 BASO # 0.0 103/ul Normal 0.0-0.1 [facility] Comment on above: Performed By: #### C BC ####[facility] Geggkgtftg0007[address] [place], [place] [address]Dr. Chrissy Freddie Basophils/100 WBC (Bld) 0.2 % Normal 0.2-2.0 [facility] Comment on above: Performed By: #### C BC ####[facility] Fhhgthouby0677[address] [place], [place] [address]Dr. Tishrowan Frazier EO # 0.0 103/ul Normal 0.0-0.7 [facility] Comment on above: Performed By: #### C BC ####[facility] Phqvbhszww105[address] [place], [place] [address]Dr. Chrissy Freddie Eosinophils/100 WBC (Bld) 0.4 % Critically low 0.9-7.0 [facility] Comment on above: Performed By: #### C BC ####[facility] Zmdzsvaysv9366[address] [place], [place] [address]Dr. Chrissy Frazier Erythrocyte distribution width (RBC) [Ratio] 13.6 % Normal 11.0-15.0 [facility] Comment on above: Performed By: #### C BC ####[facility] Ydzklqgple508[address] [place], [place] [address]Dr. Tishrowan Frazier Hematocrit (Bld) [Volume fraction] 45.2 % Normal 42.0-54.0 [facility] Comment on above: Performed By: #### C BC ####[facility] Sdrazsdrzz914[address] [place], [place] [address]Dr. Chrissy Frazier Hemoglobin (Bld) [Mass/Vol] 14.8 g/dL Normal 14.0-18.0 [facility] Comment on above: Performed By: #### C BC ####[facility] Sfxwqdyzgs1654[address] [place], [place] [address]Dr. Chrissy Frazier IG # 0.03 10e3/ul Normal 0.00-0.03 [facility] Comment on above: Performed By: #### C BC ####[facility] Jmoybciuwt2396[address] [place], [place] [address]Dr. Chrissy Frazier IG % 0.3 % Normal 0.0-0.5 [facility] Comment on above: Performed By: #### C BC ####[facility] Szfgthxmld3694[address] [place], [place] [address]Dr. Chrissy Frazier LYMPH # 2.0 103/ul Normal 1.2-3.8 [facility] Comment on above: Performed By: #### C BC ####[facility] Lgeborkjil7701[address] [place], [place] [address]Dr. Chrissy Frazier Lymphocytes/100 WBC (Bld) 18.3 % Critically low 20.5-60.0 [facility] Comment on above: Performed By: #### C BC ####[facility] Pukqckvjyw[address] [place], [place] [address]Dr. Chrissy Frazier MANUAL DIFF REQ NO Normal [facility] Comment on above: Performed By: #### C BC ####[facility] Qhjdpyebho8[address] [place] [address]Dr. Chrissy Frazier MCH (RBC) [Entitic mass] 28.5 pg Normal 25.9-34.0 [facility] Comment on above: Performed By: #### C BC ####[facility] Ztzbklvani30[address] [place], [place] [address]Dr. Chrissy Frazier MCHC (RBC) [Mass/Vol] 32.7 g/dL Normal 29.9-35.2 [facility] Comment on above: Performed By: #### C BC ####[facility] Myroudcdaz609[address] [place], [place] [address]DrNancy Frazier MCV (RBC) [Entitic vol] 87.1 fL Normal 80.0-94.0 [facility] Comment on above: Performed By: #### C BC ####[facility] Ijdtwrorej[address] [place], [place] [address]DrNancy Frazier MONO # 0.9 103/ul Critically high 0.3-0.8 [facility] Comment on above: Performed By: #### C BC ####[facility] Bnhaxcwmyp[address] [place], [place] [address]DrNancy Frazier Monocytes/100 WBC (Bld) 8.6 % Normal 1.7-12.0 [facility] Comment on above: Performed By: #### C BC ####[facility] Ffzyenereh54[address] [place], [place] [address]DrNancy Frazier NEUT # 7.8 103/ul Critically high 1.4-6.5 [facility] Comment on above: Performed By: #### C BC ####[facility] Khsevajyjj13[address] [place], [place] [address]DrNancy Frazier Neutrophils/100 WBC (Bld) 72.2 % Normal 43.0-75.0 [facility] Comment on above: Performed By: #### C BC ####[facility] Hbhjyvnomf9[address] [place], [place] [address]DrNancy Frazier Platelet mean volume (Bld) [Entitic vol] 10.1 fL Normal 9.5-13.5 [facility] Comment on above: Performed By: #### C BC ####[facility] Vsoochcmrf4[address] [place] [address]Dr. Chrissy Frazier PLT 329 103/ul Normal 150-450 [facility] Comment on above: Performed By: #### C BC ####[facility] Jnmytmpuge4848 [place] [address]Dr. Chrissy Frazier RBC 5.19 106/ul Normal 4.70-6.10 [facility] Comment on above: Performed By: #### C BC ####[facility] Somyaagtgv1792 [place] [address]Dr. Chrissy Frazier WBC 10.8 103/ul Normal 4.0-11.0 [facility] Comment on above: Performed By: #### C BC ####[facility] Czhzzgitip2085 [place] [address]Dr. Chrissy Freddie LIPASEon 03-29-2022 Lipase [Catalytic activity/Vol] 58.0 U/L Critically low 73.0-393.0 [facility] Comment on above: Performed By: #### L TERRENCE VICTORIA ####[facility] Bsxykfynzj[address] [place], [place] [address]Dr. Chrissy Freddie NM HEPATOBILIARY SCAN W EFon 03-29-2022 NM HEPATOBILIARY SCAN W EF Normal [facility] PROF 14(COMP METB)on 022 Albumin [Mass/Vol] 3.8 g/dL Normal 3.4-5.0 [facility] Comment on above: Performed By: #### C MP ####[facility] Cdggkkjcvv2106 [place] [address]Dr. Tishrowan Freddie Albumin/Globulin [Mass ratio] 1.0 {ratio} Normal [facility] Comment on above: Performed By: #### C MP ####[facility] Fuxvsnsdxi5725 [place] [address]Dr. Tishrowan Freddie ALP [Catalytic activity/Vol] 69 U/L Normal 46-116 [facility] Comment on above: Performed By: #### C MP ####[facility] Fusaivuilm9337 [place] [address]Dr. Chrissy Frazier ALT [Catalytic activity/Vol] 117 U/L Critically high 16-63 [facility] Comment on above: Performed By: #### C MP ####[facility] Vfudrevykj5245 [place] [address]Dr. Chrissy Frazier Anion gap [Moles/Vol] 16.7 mmol/L Normal [facility] Comment on above: Performed By: #### C MP ####[facility] Twfxgtjijt5630 [place] [address]Dr. Chrissy Frazier AST [Catalytic activity/Vol] 77 U/L Critically high 15-37 [facility] Comment on above: Performed By: #### C MP ####[facility] Ttxfbycfan3051 [place] [address]Dr. Chrissy Frazier Bilirubin [Mass/Vol] 1.5 mg/dL Critically high 0.2-1.0 [facility] Comment on above: Performed By: #### C MP ####[facility] Ucakphtmvy1394 [place] [address]Dr. Chrissy Frazier Calcium [Mass/Vol] 8.1 mg/dL Critically low 8.5-10.1 [facility] Comment on above: Performed By: #### C MP ####[facility] Ztytomxuil7273 [place] [address]Dr. Chrissy Freddie Chloride [Moles/Vol] 101 mmol/L Normal 98-107 [facility] Comment on above: Performed By: #### C MP ####[facility] Gutunlgawe3187 [place] [address]Dr. Chrissy Frazier CO2 [Moles/Vol] 24.5 mmol/L Normal 21.0-32.0 The [facility] [place] Comment on above: Performed By: #### C MP ####[facility] Thxnhvqlzz0383 [place] [address]Dr. Chrissy Freddie Creatinine [Mass/Vol] 1.17 mg/dL Normal 0.70-1.30 [facility] Comment on above: Performed By: #### C MP ####[facility] Holuhbodxa1357 [place] [address]Dr. Chrissy Frazier EGFR-AF ARMENIAN >60 Normal >=60 The [facility] [place] Comment on above: Performed By: #### C MP ####[facility] Zihuoqillo2941 [place] [address]Dr. Chrissy Frazier EGFR-NON AF ARMENIAN >60 Normal >=60 [facility] Comment on above: Performed By: #### C MP ####[facility] Nwzwhjsnax3879 [place] [address]Dr. Chrissy Frazier Globulin (S) [Mass/Vol] 3.9 g/dL Normal [facility] Comment on above: Performed By: #### C MP ####[facility] Lbwnunpxqd9601 [place] [address]Dr. Chrissy Frazier Glucose [Mass/Vol] 104 mg/dL Normal 74-[address] [facility] Comment on above: Performed By: #### C MP ####[facility] Ymaulbztcb1976 [place] [address]Dr. Chrissy Frazier Potassium [Moles/Vol] 3.2 mmol/L Critically low 3.5-5.1 [facility] Comment on above: Performed By: #### C MP ####[facility] Hmazjhutuz1645 [place] [address]Dr. Chrissy Frazier Protein [Mass/Vol] 7.7 g/dL Normal 6.4-8.[address] [facility] Comment on above: Performed By: #### C MP ####[facility] Xyvdfkggxb2323 [place] [address]Dr. Chrissy Frazier Sodium [Moles/Vol] 139 mmol/L Normal 136-[address] [facility] Comment on above: Performed By: #### C MP ####[facility] Iofjydbgua5621 [place] [address]Dr. Chrissy Frazier Urea nitrogen [Mass/Vol] 11.0 mg/dL Normal 7.0-18.0 [facility] Comment on above: Performed By: #### C MP ####[facility] Ipxzqdtpno4392 [place] [address]Dr. Chrissy Frazier Urea nitrogen/Creatinine [Mass ratio] 9.4 mg/mg Normal [facility] Comment on above: Performed By: #### C MP ####[facility] Aeacpqbmxx3961[address] [place], [place] [address]Dr. Chrissy Frazier US SINGLE QUAD RT UPPERon US SINGLE QUAD RT UPPER Normal [facility] AMMONIAon 03-28-2022 Ammonia (P) [Moles/Vol] 12 umol/L Normal 11-32 [facility] Comment on above: Performed By: #### A MM ####[facility] Zzheohtgkl633[address] [place], [place] [address]Dr. Chrissy Frazier CBC AUTO DIFFon 03-28-2022 BASO # 0.0 103/ul Normal 0.0-0.1 [facility] Comment on above: Performed By: #### C BC ####[facility] Bkygvnuqrs4376[address] [place], [place] [address]Dr. Chrissy Frazier Basophils/100 WBC (Bld) 0.1 % Critically low 0.2-2.0 [facility] Comment on above: Performed By: #### C BC ####[facility] Evfuokrqof2369[address] [place], [place] [address]Dr. Chrissy Frazier EO # 0.0 103/ul Normal 0.0-0.7 [facility] Comment on above: Performed By: #### C BC ####[facility] Fqcofyuhyu705[address] [place], [place] [address]Dr. Chrissy Frazier Eosinophils/100 WBC (Bld) 0.0 % Critically low 0.9-7.0 [facility] Comment on above: Performed By: #### C BC ####[facility] Oumbmklkqv7437[address] [place], [place] [address]Dr. Chrissy Frazier Erythrocyte distribution width (RBC) [Ratio] 14.0 % Normal 11.0-15.0 [facility] Comment on above: Performed By: #### C BC ####[facility] Bdxuhmurte7706[address] [place], [place] [address]Dr. Chrissy Frazier Hematocrit (Bld) [Volume fraction] 44.2 % Normal 42.0-54.0 [facility] Comment on above: Performed By: #### C BC ####[facility] Krhbumxbmc5558 [place] [address]DrNancy Frazier Hemoglobin (Bld) [Mass/Vol] 14.7 g/dL Normal 14.0-18.0 [facility] Comment on above: Performed By: #### C BC ####[facility] Kckokfrojn5429 [place] [address]DrNancy Frazier IG # 0.10 10e3/ul Critically high 0.00-0.03 [facility] Comment on above: Performed By: #### C BC ####[facility] Fvxvlrfnxh3039[address] [place], [place] [address]DrNancy Frazier IG % 0.5 % Normal 0.0-0.5 [facility] Comment on above: Performed By: #### C BC ####[facility] Rhpvipudbt8098[address] [place], [place] [address]DrNancy Frazier LYMPH # 2.6 103/ul Normal 1.2-3.8 [facility] Comment on above: Performed By: #### C BC ####[facility] Chvvfgrtks0225[address] [place], [place] [address]DrNancy Frazier Lymphocytes/100 WBC (Bld) 13.8 % Critically low 20.5-60.0 [facility] Comment on above: Performed By: #### C BC ####[facility] Kyepnfwgoj7175[address] [place], [place] [address]DrNancy Frazier MANUAL DIFF REQ NO Normal [facility] Comment on above: Performed By: #### C BC ####[facility] Mghlwpduvw2009 [place] [address]DrNancy Frazier MCH (RBC) [Entitic mass] 29.0 pg Normal 25.9-34.0 [facility] Comment on above: Performed By: #### C BC ####[facility] Rejlbwudng[address] [place], [place] [address]DrNancy Frazier MCHC (RBC) [Mass/Vol] 33.3 g/dL Normal 29.9-35.2 [facility] Comment on above: Performed By: #### C BC ####[facility] Hqnkghruff3848 [place] [address]DrNancy Frazier MCV (RBC) [Entitic vol] 87.2 fL Normal 80.0-94.0 [facility] Comment on above: Performed By: #### C BC ####[facility] Utczxllxxw1695 [place] [address]DrNancy Frazier MONO # 1.1 103/ul Critically high 0.3-0.8 [facility] Comment on above: Performed By: #### C BC ####[facility] Atkeogjqcz8915 [place] [address]DrNancy Frazier Monocytes/100 WBC (Bld) 5.9 % Normal 1.7-12.0 [facility] Comment on above: Performed By: #### C BC ####[facility] Utuhufbyhs1593[address] [place], [place] [address]DrNancy Frazier NEUT # 15.1 103/ul Critically high 1.4-6.5 [facility] [place] Comment on above: Performed By: #### C BC ####[facility] Sbtikiadmj9514[address] [place], [place] [address]DrNancy Frazier Neutrophils/100 WBC (Bld) 79.7 % Critically high 43.0-75.0 [facility] Comment on above: Performed By: #### C BC ####[facility] Ugievejyfo25[address] [place], [place] [address]DrNancy Frazier Platelet mean volume (Bld) [Entitic vol] 10.3 fL Normal 9.5-13.5 [facility] Comment on above: Performed By: #### C BC ####[facility] Bbwltbjrsk[address] [place], [place] [address]DrNancy Frazier PLT 358 103/ul Normal 150-450 [facility] Comment on above: Performed By: #### C BC ####[facility] Nbenqlrwmv16[address] [place], [place] [address]DrNancy Frazier RBC 5.07 106/ul Normal 4.70-6.10 [facility] Comment on above: Performed By: #### C BC ####[facility] Ypsgemdkqy2163 [place] [address]Dr. Chrissy Frazier WBC 18.9 103/ul Critically high 4.0-11.0 [facility] Comment on above: Performed By: #### C BC ####[facility] Homlurhsuy714[address] [place], [place] [address]DrNancy Frazier PROF 14(COMP METB)on 022 Albumin [Mass/Vol] 3.9 g/dL Normal 3.4-5.0 [facility] Comment on above: Performed By: #### C MP ####[facility] Bbibzbcojz4708[address] [place], [place] [address]DrNancy Frazier Albumin/Globulin [Mass ratio] 1.1 {ratio} Normal [facility] Comment on above: Performed By: #### C MP ####[facility] Crufrnjdvd2332[address] [place], [place] [address]Dr. Chrissy Frazier ALP [Catalytic activity/Vol] 65 U/L Normal 46-116 [facility] Comment on above: Performed By: #### C MP ####[facility] Bpufcwkzks6526[address] [place], [place] [address]Dr. Chrissy Frazier ALT [Catalytic activity/Vol] 46 U/L Normal 16-63 [facility] Comment on above: Performed By: #### C MP ####[facility] Kbffghdfdd9386[address] [place], [place] [address]DrNancy Frazier Anion gap [Moles/Vol] 13.2 mmol/L Normal [facility] Comment on above: Performed By: #### C MP ####[facility] Nhxysmskgm334[address] [place], [place] [address]Dr. Chrissy Frazier AST [Catalytic activity/Vol] 33 U/L Normal 15-37 [facility] Comment on above: Performed By: #### C MP ####[facility] Dormaxmssg8097[address] [place], [place] [address]Dr. Chrissy Frazier Bilirubin [Mass/Vol] 0.8 mg/dL Normal 0.2-1.0 [facility] Comment on above: Performed By: #### C MP ####[facility] Gbvmapayfd9772 [place] [address]Dr. Chrissy Frazier Calcium [Mass/Vol] 8.1 mg/dL Critically low 8.5-10.1 [facility] Comment on above: Performed By: #### C MP ####[facility] Iturtdepom4898 [place] [address]Dr. Chrissy Frazier Chloride [Moles/Vol] 102 mmol/L Normal 98-107 [facility] Comment on above: Performed By: #### C MP ####[facility] Lvpyqqpyki9475[address] [place], [place] [address]Dr. Chrissy Frazier CO2 [Moles/Vol] 24.0 mmol/L Normal 21.0-32.0 [facility] Comment on above: Performed By: #### C MP ####[facility] Thajuftnal99[address] [place], [place] [address]Dr. Chrissy Frazier Creatinine [Mass/Vol] 1.26 mg/dL Normal 0.70-1.30 [facility] Comment on above: Performed By: #### C MP ####[facility] Mrnueydotz355[address] [place], [place] [address]Dr. Chrissy Frazier EGFR-AF ARMENIAN >60 Normal >=60 [facility] Comment on above: Performed By: #### C MP ####[facility] Pltsshsune3779[address] [place], [place] [address]Dr. Chrissy Frazier EGFR-NON AF ARMENIAN >60 Normal >=60 [facility] Comment on above: Performed By: #### C MP ####[facility] Svqsgwyins5399[address] [place], [place] [address]Dr. Chrissy Frazier Globulin (S) [Mass/Vol] 3.7 g/dL Normal [facility] Comment on above: Performed By: #### C MP ####[facility] Olbhzncqmt4735[address] [place], [place] [address]Dr. Chrissy Frazier Glucose [Mass/Vol] 119 mg/dL Critically high 74-106 T [facility] Comment on above: Performed By: #### C MP ####[facility] Xtmxfvwweq4204 [place] [address]Dr. Tishrowan Freddie Potassium [Moles/Vol] 3.2 mmol/L Critically low 3.5-5.1 [facility] Comment on above: Performed By: #### C MP ####[facility] Ztjhqpltkw2701 [place] [address]Dr. Chrissy Frazier Protein [Mass/Vol] 7.6 g/dL Normal 6.4-8.[address] [facility] Comment on above: Performed By: #### C MP ####[facility] Utpyxuvbec2311[address] [place], [place] [address]Dr. Tishrowan Frazier Sodium [Moles/Vol] 136 mmol/L Normal 136-[address] [facility] Comment on above: Performed By: #### C MP ####[facility] Ynvxfnitpf0557[address] [place], [place] [address]Dr. Chrissy Frazier Urea nitrogen [Mass/Vol] 14.0 mg/dL Normal 7.0-18.0 [facility] Comment on above: Performed By: #### C MP ####[facility] Wjtsdvjuqv3937[address] [place], [place] [address]Dr. Chrissy Freddie Urea nitrogen/Creatinine [Mass ratio] 11.1 mg/mg Normal [facility] Comment on above: Performed By: #### C MP ####[facility] Muwxshecxk1326[address] [place], [place] [address]Dr. Chrissy Frazier CBC W MANUAL DIFFon 03-27-20 22 ATYPICAL LYMPH # Normal [facility] Comment on above: Performed By: #### C BCMAN ####[facility] Icabpwrkrd3[address] [place], [place] [address]Dr. Chrissy Frazier ATYPICAL LYMPH % Normal [facility] Comment on above: Performed By: #### C BCMAN ####[facility] Jpevviwnmb8[address] [place], [place] [address]Dr. Chrissy Frazier BAND # 0.0 103/ul Normal 0.0-0.3 [facility] Comment on above: Performed By: #### C BCMAN ####[facility] Nbkvfnvpne0884 [place] [address]Dr. Chrissy Frazier BAND % 0 % Normal 0-5 [facility] Comment on above: Performed By: #### C BCLEANDRO ####[facility] Phldxggzoi5220 [place] [address]Dr. Chrissy Frazier BASOM # 0.00 103/ul Normal 0.00-0.10 [facility] Comment on above: Performed By: #### C BCLEANDRO ####[facility] Vubuvegyip8088 [place] [address]Dr. Yirowan Frazier BASOM % 0.0 % Critically low 0.2-2.0 [facility] Comment on above: Performed By: #### C BCLEANDRO ####[facility] Ofaygaxmsg9149 [place] [address]Dr. Yirowan Frazier BLAST # Normal [facility] Comment on above: Performed By: #### C ANTONETTE ####[facility] Uqfppfpoxh10[address] [place], [place] [address]Dr. Yirowan Frazier BLAST % Normal [facility] Comment on above: Performed By: #### C ANTONETTE ####[facility] Elzfozqddd2156 [place] [address]Dr. Chrissy Frazier CORRECTED WBC Normal 4.0-11.0 The [facility] Comment on above: Performed By: #### C ANTONETTE ####[facility] Esefjmewmw2619 [place] [address]Dr. Chrissy Frazier EOS # 0.00 103/ul Normal 0.00-0.70 [facility] Comment on above: Performed By: #### C BCLEANDRO ####[facility] Dzlpvsctjr9930 [place] [address]Dr. Chrissy Frazier EOS% 0.0 % Critically low 0.9-7.0 [facility] Comment on above: Performed By: #### C ANTONETTE ####[facility] Vhkcnubgsa6791 [place] [address]Dr. Chrissy Frazier HCT 47.3 % Normal 42.0-54.0 [facility] Comment on above: Performed By: #### C BCLEANDRO ####[facility] Wvnxzfxntd3895 [place], [place] [address]Ao. Chrissy Frazier HGB 16.4 g/dl Normal 14.0-18.0 [facility] Comment on above: Performed By: #### C ANTONETTE ####[facility] Noxottefjm0531 [place], [place] [address]Jx. Chrissy Frazier LYMPHM # 2.31 103/ul Normal 1.20-3.80 [facility] Comment on above: Performed By: #### C ANTONETTE ####[facility] Tnqovchhie0563 [place], [place] [address]Ch. Chrissy Frazier LYMPHM% 9.0 % Critically low 20.5-60.0 [facility] Comment on above: Performed By: #### C ANTONETTE ####[facility] Fxendtrekj9741 [place], [place] [address]Hc. Chrissy Frazier MCH 28.6 pg Normal 25.9-34.0 [facility] Comment on above: Performed By: #### Silverio WHITMAN ####[facility] Svgjcrfpfp6929 [place] [address]Dr. Chrissy Frazier MCHC 34.7 g/dl Normal 29.9-35.2 [facility] Comment on above: Performed By: #### C ANTONETTE ####[facility] Dbnmyipipv0403 [place], [place] [address]Xj. Chrissy Frazier MCV 82.4 fL Normal 80.0-94.0 [facility] Comment on above: Performed By: #### Silverio WHITMAN ####[facility] Drjbfzvxyi4565 [place], [place] [address]Nh. Chrissy Frazier METAMYELOCYTE # Normal [facility] Comment on above: Performed By: #### Silverio WHITMAN ####[facility] Kfxomfkbke8214 [place], [place] [address]Wb. Chrissy Frazier METAMYELOCYTE % Normal [facility] Comment on above: Performed By: #### Silverio WHITMAN ####[facility] Wwtzeduapk3486 [place] [address]Dr. Chrissy Frazier MONOM# 3.85 103/ul Critically high 0.30-0.80 [facility] Comment on above: Performed By: #### C ANTONETTE ####[facility] Aexcslwfiu5420 [place] [address]Dr. Chrissy Frazier MONOM% 15.0 % Critically high 1.7-12.0 [facility] Comment on above: Performed By: #### C ANTONETTE ####[facility] Hktkclpkie9410 [place] [address]Dr. Chrissy Frazier MPV 10.6 fL Normal 9.5-13.5 [facility] Comment on above: Performed By: #### C BCLEANDRO ####[facility] Esnymourkx3406 [place] [address]Dr. Chrissy Frazier MYELOCYTE # Normal [facility] Comment on above: Performed By: #### C ANTONETTE ####[facility] Afaeufugor5143 [place] [address]Dr. Tishrowan Freddie MYELOCYTE % Normal [facility] Comment on above: Performed By: #### C ANTONETTE ####[facility] Zhffkyqapv0250 [place] [address]Dr. Chrissy Frazier NRBC Normal [facility] Comment on above: Performed By: #### C ANTONETTE ####[facility] Fickbwcfbz9720 [place] [address]Dr. Chrissy Frazier PLT 471 103/ul Critically high 150-450 [facility] Comment on above: Performed By: #### C ANTONETTE ####[facility] Ffsquokhfx6[address] [place], [place] [address]Dr. Chrissy Frazier RBC 5.74 106/ul Normal 4.70-6.10 [facility] Comment on above: Performed By: #### C ANTONETTE ####[facility] Trqkckhkuo14[address] [place], [place] [address]Dr. Chrissy Freddie RDW 13.7 % Normal 11.0-15.0 [facility] Comment on above: Performed By: #### C ANTONETTE ####[facility] Fudkbgrbyc36[address] [place], [place] [address]Dr. Tishrowan Frazier SEG # 19.53 103/ul Critically high 1.40-6.50 [facility] Comment on above: Performed By: #### C BCMAN ####[facility] Qufzycdzmd5973 [place] [address]Dr. Chrissy Frazier SEG % 76.0 % Critically high 43.0-75.0 [facility] Comment on above: Performed By: #### C BCMAN ####[facility] Ahmemtcrfr5343 [place] [address]Dr. Chrissy Frazier TOXIC GRANULATION SLIGHT Normal [facility] Comment on above: Result Comment: few vacoules Performed By: #### C BCMAN ####[facility] Kebeztenfz04[address] [place], [place] [address]Dr. Chrissy Frazier WBC 25.7 103/ul Critically high 4.0-11.0 The [facility] [place] Comment on above: Performed By: #### C BCMAN ####[facility] Jpxciiiiit2876[address] [place], [place] [address]Dr. Chrissy Freddie LACTATE/LACTIC ACIDon 2021 Lactate [Moles/Vol] 2.4 mmol/L Critically high 0.4-1.9 [facility] Comment on above: Performed By: #### L ACT ####[facility] Mghwpregux9434[address] [place], [place] [address]Dr. Chrissy Frazier Lactate [Moles/Vol] 3.5 mmol/L Critically high 0.4-1.9 [facility] Comment on above: Performed By: #### L ACT ####[facility] Amtzrjngws4699[address] [place], [place] [address]Dr. Chrissy Frazier LIPASEon 03-27-2022 Lipase [Catalytic activity/Vol] 43.0 U/L Critically low 73.0-393.0 [facility] Comment on above: Performed By: #### C MP, LIPA ####[facility] Iocdrbtjdz[address] [place], [place] [address]Dr. Chrissy Frazier PROF 14(COMP METB)on 022 Albumin [Mass/Vol] 4.7 g/dL Normal 3.4-5.0 [facility] Comment on above: Performed By: #### C MP, LIPA ####[facility] Qxfgtnmcav1242 [place] [address]Dr. Chrissy Freddie Albumin/Globulin [Mass ratio] 1.1 {ratio} Normal [facility] Comment on above: Performed By: #### C MP, LIPA ####[facility] Yosarpitkl6541 [place] [address]Dr. Chrissy Frazier ALP [Catalytic activity/Vol] 69 U/L Normal 46-116 [facility] Comment on above: Performed By: #### C MP, LIPA ####[facility] Qiypiukbuw0196 [place] [address]Dr. Chrissy Frazier ALT [Catalytic activity/Vol] 47 U/L Normal 16-63 [facility] Comment on above: Performed By: #### C MP, LIPA ####[facility] D[address]qsg[address]gf[address] [place] [id number]. Chrissy Frazier Anion gap [Moles/Vol] 23.2 mmol/L Normal [facility] Comment on above: Performed By: #### C MP, LIPA ####[facility] Euasmpyqod[address] [place] [id number]. Chrissy Frazier AST [Catalytic activity/Vol] 23 U/L Normal 15-37 [facility] Comment on above: Performed By: #### C MP, LIPA ####[facility] Khrxmthzjp[address] [place] [id number]. Chrissy Frazier Bilirubin [Mass/Vol] 0.7 mg/dL Normal 0.2-1.0 [facility] Comment on above: Performed By: #### C MP, LIPA ####[facility] Acdypiisxt[address] [place] [id number]. Chrissy Frazier Calcium [Mass/Vol] 9.2 mg/dL Normal 8.5-10.[address] [facility] Comment on above: Performed By: #### C MP, LIPA ####[facility] Erzhneflyv[address] [place] [id number]. Chrissy Frazier Chloride [Moles/Vol] 97 mmol/L Critically low 98-107 [facility] Comment on above: Performed By: #### C MP, LIPA ####[facility] [address] [place] [address]Dr. Chrissy Frazier CO2 [Moles/Vol] 18.2 mmol/L Critically low 21.0-32.0 [facility] Comment on above: Performed By: #### C MP, LIPA ####[facility] [address] [place] [address]Dr. Chrissy Frazier Creatinine [Mass/Vol] 1.77 mg/dL Critically high 0.70-1.30 [facility] Comment on above: Performed By: #### C MP, LIPA ####[facility] Ark[address] [place], [place] [address]Dr. Chrissy Freddie EGFR-AF ARMENIAN 54 mL/min/1.73m2 Critically low >=60 [facility] Comment on above: Performed By: #### C MANA, LIPA ####[facility] [address] [place], [place] [address]Dr. Chrissy Freddie EGFR-NON AF ARMENIAN 45 mL/min/1.73m2 Critically low >=60 [facility] Comment on above: Performed By: #### C MP, LIPA ####[facility] Z[address]uxwuz[address] [place], [place] [address]Dr. Chrissy Frazier Globulin (S) [Mass/Vol] 4.4 g/dL Normal [facility] Comment on above: Performed By: #### C MP, LIPA ####[facility] [address] [place] [address]Dr. Chrissy Freddie Glucose [Mass/Vol] 131 mg/dL Critically high 74-[address] [facility] Comment on above: Performed By: #### C MP, LIPA ####[facility] [address]qi[address] [place], [place] [address]Dr. Tishrowan Frazier Potassium [Moles/Vol] 3.4 mmol/L Critically low 3.5-5.1 [facility] Comment on above: Performed By: #### C MP, LIPA ####[facility] Kxik[address] [place], [place] [address]Dr. Chrissy Frazier Protein [Mass/Vol] 9.1 g/dL Critically high 6.4-8.2 T [facility] Comment on above: Performed By: #### C MANA, LIPA ####[facility] [address] [place], [place] [address]Sb. Chrissy Frazier Sodium [Moles/Vol] 135 mmol/L Critically low 136-145 [facility] Comment on above: Performed By: #### C MANA, LIPA ####[facility] Sr[address]beybq[address] [place] [id number]. Chrissy Frazier Urea nitrogen [Mass/Vol] 19.0 mg/dL Critically high 7.0-18.0 [facility] Comment on above: Performed By: #### C MANA, LIPA ####[facility] [address] [place] [address]Dr. Chrissy Frazier Urea nitrogen/Creatinine [Mass ratio] 10.7 mg/mg Normal [facility] Comment on above: Performed By: #### C MANA, LIPA ####[facility] [address]tds[address]av[address]ab[address] [place] [id number]. Chrissy Frazier BMPon 11-03-2020 Anion gap [Moles/Vol] 14 mmol/L Normal 6-16 [facility] Comment on above: Performed By: #### 2 [id number], [id number], [id number] #### [facility] [address] [place] [address] Calcium [Mass/Vol] 9.0 mg/dL Normal 8.9-11.1 [facility] Comment on above: Performed By: #### 2 [id number], [id number], [id number] #### [facility] [address] [place] [address] Chloride [Moles/Vol] 104 mmol/L Normal 101-111 [facility] Comment on above: Performed By: #### 2 [id number], [id number], [id number] #### [facility] [address] [place] [address] CO2 [Moles/Vol] 21 mmol/L Normal 21-31 [facility] Comment on above: Performed By: #### 2 697940, [id number], [id number] #### [facility] [address] [place] [address] Creatinine [Mass/Vol] 1.3 mg/dL Normal 0.5-1.3 [facility] Comment on above: Performed By: #### 2 886158, [id number], [id number] #### [facility] [address] [place] [address] Glucose [Mass/Vol] 111 mg/dL Normal 55-199 [facility] Comment on above: Result Comment: If t his glucose result represents a fasting glucose, interpretation should refer to the following reference range: 55-99 mg/dL Performed By: #### 2 [id number], [id number], [id number] #### [facility] [address] [place] [address] Potassium [Moles/Vol] 2.9 mmol/L Low 3.5-5.3 [facility] Comment on above: Performed By: #### 2 262241, [id number], [id number] #### [facility] [address] [place] [address] Sodium [Moles/Vol] 136 mmol/L Normal 135-145 [facility] Comment on above: Performed By: #### 2 500769, 1830146, [id number] #### [facility] [address] [place] [address] Urea nitrogen [Mass/Vol] 14 mg/dL Normal 5-21 [facility] Comment on above: Performed By: #### 2 687261, [id number], [id number] #### [facility] [address] [place] [address] Urea nitrogen/Creatinine [Mass ratio] 11 No Units Normal 10-20 [facility] Comment on above: Performed By: #### 2 824493, 5816741, [id number] #### [facility] [address] [place] [address] Lipase Levelon 11-03-2020 Lipase [Catalytic activity/Vol] 66 unit/L High 13-58 [facility] Comment on above: Performed By: #### 2 238023, [id number], [id number] #### [facility] [address] [place] [address] Physician Orderon 11-03-2020 Physician Order [id number] 3#1.00CD:127 Normal [facility] eGFRon 11-03-2020 GFR/1.73 sq M predicted among blacks MDRD (S/P/Bld) [Vol rate/Area] mL/min/{1.73_m2} Normal >=59 [facility] Comment on above: Order Comment: Order added by Discern Expert. Result Comment: eGFR is race adjusted. AA=. Performed By: #### 2 [id number], [id number], [id number] #### [facility] [address] [place] [address] GFR/1.73 sq M predicted among non-blacks MDRD (S/P/Bld) [Vol rate/Area] mL/min/{1.73_m2} Normal >=59 [facility] Comment on above: Order Comment: Order added by Discern Expert. Result Comment: Relief Man lindsay kidney disease could be indicated at eGFR's of less than 60 mL/min/1.73m2. Kidney failure is indicated at less than 15 mL/min/1.73m2. Performed By: #### 2 766036, [id number], [id number] #### [facility] [address] [place] [address] Encounters Encounter Date Encounter Type Care Provider Facility Start: 12-04-2024 End: 12-04-2024 Office outpatient visit 15 minutes Tung ISAACS Work Phone: [facility] Comment on above: Tinea versicolor (Pr imary Dx) Start: 12-04-2024 End: 12-04-2024 ambulatory TUNG GUNN Not Available Start: 12-04-2024 End: 12-04-2024 Bamboo flowsheet Tung ISAACS Work Phone: [facility] Start: 12-04-2024 End: 12-04-2024 Bamboo flowsheet Tung Damon PA Work Phone: [facility] Start: 05-16-2024 End: 05-16-2024 ambulatory TUNG GUNN Not Available Start: 03-07-2024 End: 03-07-2024 ambulatory TUNG GUNN Not Available Start: 03-30-2023 ambulatory Luis Angel Bentley Fa cility:[facility] Start: 01-03-2023 End: 01-04-[address] MELODY MARIO . Facility:[facility] Start: 01-03-2023 End: 01-04-2023 [facility] Start: 12-29-2022 End: 12-30-[address] MELODY MARIO . Facility:[facility] Start: 12-13-2022 End: 12-14-2022 ambulatory [facility] Start: 11-24-2022 End: 11-24-2022 ambulatory [facility] Start: 11-16-2022 End: 11-17-[address] MELODY MARIO . Facility:[facility] Start: 10-23-2022 End: 10-24-[address] MELODY MAIRO . Facility:[facility] Start: 10-22-2022 End: 10-22-2022 ambulatory [...] 03-31-[address] MELODY MARIO . Facility:[facility] Plan of Treatment Date Care Activity Detail Author Start: 02-01-2025 End: 02-01-2025 Patient encounter procedure 02/01/2025 1:20 PM EDT Office Visit [facility] [address] [place] [address] Tung Gunn PA [address] [place] [address] [facility] Start: 12-04-2024 End: 12-04-2024 Patient encounter procedure 12/04/2024 2:50 PM EST Office Visit [facility] [address] [place] [address] Tung Gunn PA [address] [place] [address] Arrived [facility] Comment on above: Arrived Start: 07-22-2024 Influenza vaccination Influenza Vacc ine (#1) [facility] Immunizations Immunization Date Immunization Notes Care Provider Fa cility 09-03-2022 influenza virus vacc ine, unspecified formulation Tung ISAACS Work Phone: [facility] Payers Date Payer Category Payer Private Health [place] [address] [id number] 2023 Self-pay 1990 Unknown [id number] 2.16.840.1.143585.3.579. 2.593 1990 Unknown [id number] 2.16.840.1.247252.3.579. 2.593 1990 Unknown [id number] 2.16.840.1.771633.3.579. 2.593 1990 Unknown [id number] 2.16.840.1.523277.3.579. 2.593 1990 Unknown [id number] 2.16.840.1.720250.3.579. 2.593 1990 Unknown [id number] 2.16.840.1.263987.3.579. 2.593 1990 Unknown [id number] 2.16.840.1.370225.3.579. 2.593 1990 Unknown [id number] 2.16.840.1.767088.3.579. 2.593 1990 Unknown [id number] 2.16.840.1.084857.3.579. 2.593 1990 Unknown [id number] 2.16.840.1.133730.3.579. 2.593 1990 Unknown [id number] 2.16.840.1.015437.3.579. 2.593 1990 Unknown [id number] 2.16.840.1.912277.3.579. 2.593 1990 Unknown [id number] 2.16.840.1.818382.3.579. 2.593 1990 Unknown [id number] 2.16.840.1.971078.3.579. 2.1259 1990 Unknown [id number] 2.16.840.1.545749.3.579. 2.1259 1990 Unknown [id number] 2.16.840.1.402025.3.579. 2.1259 1959 Private Health Insurance [id number] Unknown [id number] 2.16.840.1.403100.3.579. 2.531 Social History Date Type Detail Facility Start: 03-07-2024 [facility] Start: 03-07-2024 Tobacco use and exposure Smokeless t obacco non-user [facility] Start: 05-16-2024 End: 12-04-2024 History of Social function [facility] Start: 05-16-2024 End: 12-04-2024 Tobacco use panel [facility] Start: 1990 Sex assigned at Not on file [facility] History of Present illness Narrative 12-04-2024 SHITAL Naranjo - 12/04/2024 2:50 PM EST Note Date & Type Note Facility 12-04-2024 History of Presen t illness Narrative Follow up Diagnosis: Tinea Versicolor Location: generalized Last visit: 6 months ago Symptoms: Multiple dyspigmentation macules and patches Status: worsening over the last 1-2 months Current treatment: Ciclopirox 0.77% cream and shampoo ;; patient states he does not use the cream he does not notice a change when he uses this. Uses the soap daily. All pertinent medical history, medications, and allergies were reviewed. General Exam: alert, oriented to person, place, and time, normal affect, well appearing Unaccompanied A focused exam completed based on patient reported problems, see below: 1. Tinea versicolor Chest (Upper Torso, Anterior), Left Arm, Right Arm Multiple dyspigmentation macules and patches with fine scale. Only slight improvement from last visit. Patient was counseled that this condition is chronic and can be controlled, but not cured. Stop Ciclopirox shampoo and start Ketoconazole cream daily for maintenance. I will add a short course of oral Diflucan 300 mg one time and repeat in 7 days. Reviewed proper use of prescribed medications and discussed potential side effects. Notify the office with any new onset pruritus, yellowing of the skin or abdominal pain. Avoid alcohol and Tylenol while on this medication. Follow up in 2 months. Sooner if not improved with oral Diflucan. Related Medications Ciclopirox 1 % shampoo Lather on body, leave on 5 min, rinse 2-3 x week, 30 day supply ciclopirox (Loprox) 0.77 % cream Apply thin layer to affected area once a day, when flared. fluconazole (Diflucan) 100 MG tablet 3 tablets by mouth now, repeat in 1 week/14 days ketoconazole (NIZOral) 2 % cream Apply thin layer to affected area once daily Next Visit: 2 months documented in this encounter [facility] Progress note 11-24-2022 Note Date & Type [...] report that his father had a fatal ND at the age of 54. Stress test [...] factor modification -Plan (more content not included)... [facility] Progress note 11-24-2022 Note Date & [...] All other systems reviewed and are negative. [facility] Evaluation note Note Date & Type Note Facility Evaluation note Diagnosis Tinea versicolor- Primary Pityriasis versicolor documented in this encounter [facility] Summary Purpose Family History No Family History [...] section and content) DATE CREATED AUTHOR 11/04/2020 Alvaro Mahmood [facility] DATE CREATED AUTHOR AUTHOR'S ORGANIZ ATION 01/08/2023 [facility] DATE CREATED AUTHOR AUTHOR'S ORGANIZ ATION 02/07/2023 [facility] DATE CREATED AUTHOR AUTHOR'S ORGANIZ ATION 04/01/2023 [facility] DATE CREATED AUTHOR AUTHOR'S ORGANIZ ATION 12/07/2024 [facility] EPIC Reason for Visit (unrecogniz ed section and content) Reason Comments Tinea versicolor FOR RECORDS PERTAINING TO PATIENTS WHO ARE [...] BE BASED ON THE PRIMARY CLINICAL RECORDS. [facility]. provides no warranty or guarantee of the accuracy or completeness of information in this document.
== END 2025-04-01 08:09 | disposition home or self-care (01) ==
PROVIDERS: PCP Family Medicine; Visit Provider Family Medicine
DX: M75.40 Impingement syndrome of unspecified shoulder (principal); M94.211 Chondromalacia, right shoulder
CPT/HCPCS: 73221

== ENCOUNTER 2025-06-24 01:48 | Emergency (ER) | payer OTHER, SELFPAY ==
[2025-06-24 01:56] VITALS: PULSE 71; TEMP 36.9; O2SAT 97; BMI 40.2
--- OUTSIDE RECORDS SUMMARY | 2025-06-24 01:58 | XMS_ITS | CCD ---
Author Organization [facility] Care Team Providers Care Exercise Teacher Name Role Phone DARREN MOHAMAD Referring Unavailable LESLIEHOTHANI, MOHAMAD Attending Unavailable HOY [...] OLIVER Primary Care Unavailable LUISA, DR CHARISSA Vázquez Consulting Unavailabl e HOY ., DR OLIVER [...] Care Unavailable SHYANN CM Consulting Unavailable ALGHOTHANI, MOHAMAAmelie Consulting Unavailable HOY ., DR OLIVER Primary Care Unavailable ALGHOTHANI, MOHAMAD Attending Unavailable DARREN, MOHAMAD Admitting Unavailable LENIN ., DR OLIVER Consulting Unavailable HOY ., [...] OLIVER Primary Care Unavailable LUISA, DR CHARISSA Vázquez Consulting Unavailabl e HAYLEE, DR CASSIA Del Angel Consulting Unavailable DARRELL TOLEDO Consulting Unavailable KAYDEN BRANTLEY Consulting Unavailable Luis Angel Bentley Attending UnavailLuis Angel Conway Admitting UnavailMelody Benitez Primary Care Unavailable Unavailable Primary Care Provider UnavailTUNG Wolf Attending Unavailable TUNG GUNN Attending Unavailable TUNG GUNN Attending Unavailable Melody Mario MD Primary Care Provider [phone] PALMER SHEA Attending Unavailable MELODY MARIO Primary Care Unavailable MELODY MARIO Primary Care Unavailable Allergies Allergy Classification Reported Allergen(s) Allergy Type Date of Onset Reaction(s) Facility (10 sources) Penicillins; Translations: [PENICILLINS] Propensity to adverse reactions to drug (disorder) 09-28-20 07 Unknown, Intolerance [facility] Repository (7 sources) Sulfamethoxazole / Trimethoprim; Translations: [SULFAMETHOXAZOLE-T RIMETHOPRIM] Drug Allergy 01-27-20 21 Rash [facility] Repository (1 source) Clarithromycin Drug Allergy [facility] Repository (1 source) Sulfamethoxazole / Trimethoprim Drug Allergy 05-27-20 17 [facility] Repository (1 source) Sulfamethoxazole Drug Allergy 03-20-20 [facility] Repository (1 source) Trimethoprim Drug Allergy 03-20-20 [facility] Repository (4 sources) Clarithromycin; Translations: [CLARITHROMYCIN] Allergy to substance 03-07-20 [facility] (2 sources) Clarithromycin Drug Allergy 04-16-20 Unknown [facility] Medications Current Medications Medication Drug Class(es) Dates Sig (Normalized) Sig (Original) amphetamine aspartate 7.5 mg / amphetamine sulfate 7.5 mg / dextroamphetamine saccharate 7.5 mg / dextroamphetamine sulfate 7.5 mg oral tablet (5 sources) Central Nervous System Stimulant Start: 2024 [...] tablet (5 sources) Azole Antifungal Start: 05-16-20 24 End: 12-04-19 25 fluconazole (Diflucan) 100 MG [...] 12/04/2024 Discontinued ibuprofen 800 mg oral tablet (5 sources) Nonsteroidal Anti-inflammatory Drug Start: 04-08-2023 take 1 tablet by mouth every eight hours ibuprofen 800 MG tablet Take 800 mg by mouth every 8 (eight) hours 04/08/2023 Active IBUPROFEN ORAL T 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 Active ketoconazole 20 mg/ml topical cream (2 sources) Azole Antifungal Start: 12-04-2024 ketoconazole (NIZOral) 2 % cream Indications: Tinea versicolor Apply thin layer to affected area once daily 60 g 11 12/04/2024 Active lithium carbonate 300 mg oral capsule (5 sources) lithium carbonat e (ESKALITH) 300 mg capsule Take 300 mg by mouth. 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; Translations: [OTH CORRECTION CURRENT DRUG THERAPY] Onset: 03-20-2023 Episodic Other connective tissue disease (2 sources) Tendinitis of right rotator cuff; Translations: [Other shoulder lesions, right shoulder] 04-16-2025 Episodic Other connective tissue disease (1 source) Other shoulder lesions, right shoulder; Translations: [Rotator cuff tendinitis, right] Onset: 04-16-2025 Episodic Other lower respiratory disease (1 source) Acute respiratory distress; Translations: [ACUTE RESPIRATORY DISTRESS] Onset: 02-07-2023 Episodic Other non-traumatic joint disorders (1 source) Disorder of acromioclavicular joint 04-16-2025 Episodic Other non-traumatic joint disorders (3 sources) Pain in right shoulder; Translations: [Pain in joint, shoulder region] Onset: 04-16-2025 04-16-2025 Episodic Other nutritional; endocrine; and metabolic disorders [...] Translations: [OBSTRUCTIVE SLEEP APNEA] Onset: 12-29-2022 Chronic Residual codes; unclassified (1 source) Other specified postprocedural states; Translations: [History of repair of right rotator cuff] Onset: 04-16-2025 Episodic Septicemia (except in labor) (2 sources) Sepsis, [...] [CONTACT W/AND (SUSP) EXPOS COVID-19] Onset: 04-29-2022 Unclassified (2 sources) Right shoulder pain, unspecified chronicity 04-16-2025 Past or Other Problems Problem Classification Problem [...] Results Test Name Value Interpretation Reference Range Facility [facility] 04-16-2025 CNOV Office Visit (LOORRM ) PAULINA MONTERO ([id number]) 1990 M Date Time Provider Department 04/16/25 2:30 PM PALMER SHEA During your visit today, we recorded the following information about you: Palmer Shea PA-C 04/16/2025 3:07 PM Signed This document has been created with the use of voice recognition technology, including [email or web address] Scribe technology. It may contain inaccuracies: misspellings, inaccurate syntax or word sense that escaped review. The patient is seen at the request of self for evaluation and an opinion regarding treatment. A copy of this report will remain in the shared medical record CHIEF COMPLAINT: Paulina Montero is a 35 year old Right hand dominant male who presents today for new evaluation of right shoulder. HISTORY OF PRESENT ILLNESS: PAIN EVALUATION 04/16/2025 1433 Pain Level: 7 Pain Location: Shoulder-Right Description: Aching;Sharp Duration Amount of Time: 2 Duration Units: Years Frequency: Continuous Intervention/Comfort measure: Reposition;Relaxation ;Medication;Positioni ng;Cold HISTORY: Paulina is a 35-year-old male presenting with chronic right shoulder pain. Paulina reports chronic right shoulder pain, which is tender to palpation and radiates around the shoulder area. He also experiences pain in the posterior aspect of the shoulder. The pain is exacerbated by certain movements, such as those performed during a recent x-ray, and he reports a sensation of the shoulder slipping out of place frequently. He denies any recent activities that may have triggered the pain but mentions a history of playing flag football and working out, which he believes may have contributed to the issue. Paulina has a history of two shoulder surgeries in his teenage years due to a football injury, including a rotator cuff repair and a possible labrum repair. The first surgery was performed when he was 16 years old by a doctor in [place], and the second surgery was performed a year later by Dr. Carrion in [place]. The second surgery is where the repair occurred. He does not feel he has full range of motion or strength in his right shoulder, noting significant pain with certain movements. He has been managing the pain with ice and ibuprofen. He also reports a history of six cortisone injections in his shoulder at the age of 22. He denies any issues with his left shoulder, although he mentions it hurts a little bit. Paulina is otherwise healthy and does not report any other medical issues. No other musculoskeletal complaints ROS: REVIEW OF SYSTEMS: Constitutional: patient denies any recent fever or significant change in weight Cardiovascular: patient denies any chest pain at rest Respiratory: patient denies any shortness of breath or cough Gastrointestinal: patient denies any current abdominal discomfort Integumentary: patient denies any recent skin changes Musculoskeletal: as noted in the HPI Neurologic: as noted in the HPI Endocrine: patient denies a current diagnosis of diabetes Hematologic/Lymphatic : patient denies any easily bleeding, any recent infection and denies any recent observable lymph node enlargement Psychologic: negative for any recent depression or anxiety issues SOCIAL HISTORY: Tobacco Use: Never FAMILY HISTORY: No family history on file. Musculoskeletal: (+) right shoulder pain, (+) pain with right shoulder range of motion, (+) sensation of right shoulder ?slipping out,? (+) mild left shoulder pain ALLERGIES: ALLERGIES Allergen Reactions Bactrim [Sulfametho* Rash Biaxin [Clarithromy* Unknown Penicillins Intolerance PAST MEDICAL HISTORY: No past medical history on file. SOCIAL HISTORY: Tobacco Use: Never EXAMINATION: GENERAL: Appears healthy, well-nourished, no deformities. ORIENTATION: Alert and oriented to person place and time HABITUS: Normal GAIT: Normal, the patient did not have trouble getting onto the exam table. right shoulder exam: skin intact; no erythema, no ecchymosis, no arm swelling significant irritability with PROM Tenderness to palpation of Codman's point and AC joint Non tender to the GH joint active equals passive ROM- 180/80 Positive significant pain with impingement maneuvers Intact strength with isometric contraction of the RC; when tested against resistance- SS, IS and subscap Bicep with normal course Positive speeds and pain with O'briens No atrophy of the scapula girdle, no scapular dyskinesia intact sensation to light touch distally good radial pulse no pain with neck ROM Imaging: (Today) X-ray of the right shoulder: - Post-traumatic arthritis - Metallic anchor in the humerus from prior surgical repair - AC degenerative changes - mild-moderate glenohumeral OA Right shoulder MRI (report reviewed on patient's phone): - High-grade partial undersurface tear of the infraspinatus tendon - (more content not included)... Normal [facility] XR SHLDR 4V AP/ISABELL/LAT/OUTLE T RTon 04-16-2025 XR SHLDR 4V AP/ISABELL/LAT/OUTLET RT * * *Final Report* * * DATE OF EXAM: Apr 16 2025 2:31PM LZX 5605 - XR SHLDR 4V AP/ISABELL/LAT/OUTLET RT / PROCEDURE REASON: Right shoulder pain, unspecified chronicity * * * * Physician Interpretation * * * * X-RAYS RIGHT SHOULDER HISTORY: post op. Right shoulder pain, unspecified chronicity TECHNIQUE: 5 views of the right shoulder. COMPARISON: None RESULT: Mild degenerative change glenohumeral joint. Mild degenerative change acromioclavicular joint. No fracture or dislocation. Suture anchor noted in the right proximal humerus from prior rotator cuff repair. Acromiohumeral interval is maintained. IMPRESSION: Mild degenerative change right shoulder Machine Room Operator: [facility] Transcribe Date/Time: Apr 16 2025 2:51P Dictated by : SIRENA WOODARD MD This examination was interpreted and the report reviewed and electronically signed by: SIRENA WOODARD MD on Apr 16 2025 2:52PM EST [id number] Normal [facility] XR Shoulder - right 4 Viewso n 04-16-2025 IMPRESSION: Mild degenerative change right shoulder Machine Room Operator: [facility] Transcribe Date/Time: Apr 16 2025 2:51P Dictated by : SIRENA WOODARD MD This examination was interpreted and the report reviewed and electronically signed by: SIRENA WOODARD MD on Apr 16 2025 2:52PM EST DIVISION OF RADIOLOGY * * *Final Report* * * DATE OF EXAM: Apr 16 2025 2:31PM LZX 5605 - XR SHLDR 4V AP/ISABELL/LAT/OUTLET RT / PROCEDURE REASON: Right shoulder pain, unspecified chronicity * * * * Physician Interpretation * * * * X-RAYS RIGHT SHOULDER HISTORY: post op. Right shoulder pain, unspecified chronicity TECHNIQUE: 5 views of the right shoulder. COMPARISON: None RESULT: Mild degenerative change glenohumeral joint. Mild degenerative change acromioclavicular joint. No fracture or dislocation. Suture anchor noted in the right proximal humerus from prior rotator cuff repair. Acromiohumeral interval is maintained. DIVISION OF RADIOLOGY Provider, [facility] Hodan vázquez [place] - 04/16/2025 * * *Final Report* * * DATE OF EXAM: Apr 16 2025 2:31PM LZX 5605 - XR SHLDR 4V AP/ISABELL/LAT/OUTLET RT / PROCEDURE REASON: Right shoulder pain, unspecified chronicity * * * * Physician Interpretation * * * * X-RAYS RIGHT SHOULDER HISTORY: post op. Right shoulder pain, unspecified chronicity TECHNIQUE: 5 views of the right shoulder. COMPARISON: None RESULT: Mild degenerative change glenohumeral joint. Mild degenerative change acromioclavicular joint. No fracture or dislocation. Suture anchor noted in the right proximal humerus from prior rotator cuff repair. Acromiohumeral interval is maintained. IMPRESSION IMPRESSION: Mild degenerative change right shoulder Machine Room Operator: SHASHI Transcribe Date/Time: Apr 16 2025 2:51P Dictated by : SIRENA WOODARD MD This examination was interpreted and the report reviewed and electronically signed by: SIRENA WOODARD MD on Apr 16 2025 2:52PM EST [facility] Radiology Study observation (narrative) [facility] XR Shoulder - right 4 ViewsO rdered By: Ccf Provider on 04-16-2025 [facility] H PYLORI ANTIBODY IGGon 12-22 H. PYLORI IGG ABS 0.09 Index Value Normal 0.00-0.79 [facility] Comment on above: Result Comment: Nega tive <0.80 Equivocal 0.80 - 0.89 Positive >0.89 Performed By: #### H PYLLC ####[facility] [address] [place], [place] [address]Dr. Chrissy Frazier AMYLASEon 01-04-2023 Amylase [Catalytic activity/Vol] 34 U/L Normal 25-115 [facility] Comment on above: Performed By: #### A MY ####[facility] [address] [place], [place] [address]DrNancy Frazier CBC AUTO DIFFon 01-04-2023 BASO # 0.0 103/ul Normal 0.0-0.1 [facility] Comment on above: Performed By: #### C BC ####[facility] [address] [place], [place] [address]Dr. Chrissy Frazier Basophils/100 WBC (Bld) 0.1 % Critically low 0.2-2.0 [facility] Comment on above: Performed By: #### C BC ####[facility] [address] [place], [place] [address]Dr. Chrissy Frazier EO # 0.0 103/ul Normal 0.0-0.7 [facility] Comment on above: Performed By: #### C BC ####[facility] Ik[address]sp[address] [place], [place] [address]Dr. Chrissy Frazier Eosinophils/100 WBC (Bld) 0.1 % Critically low 0.9-7.0 [facility] Comment on above: Performed By: #### C BC ####[facility] W[address]jvl[address] [place], [place] [address]Dr. Chrissy Frazier Erythrocyte distribution width (RBC) [Ratio] 14.0 % Normal 11.0-15.0 [facility] Comment on above: Performed By: #### C BC ####[facility] I[address] [place], [place] [address]Dr. Chrissy Frazier Hematocrit (Bld) [Volume fraction] 40.4 % Critically low 42.0-54.0 [facility] Comment on above: Performed By: #### C BC ####[facility] [address] [place], [place] [address]Dr. Chrissy Frazier Hemoglobin (Bld) [Mass/Vol] 13.8 g/dL Critically low 14.0-18.0 [facility] Comment on above: Performed By: #### C BC ####[place] [address] [place], [place] [address]Dr. Chrissy Frazier IG # 0.05 10e3/ul Critically high 0.00-0.03 [facility] Comment on above: Performed By: #### C BC ####[facility] [address] [place], [place] [address]Dr. Chrissy Frazier IG % 0.3 % Normal 0.0-0.5 [facility] Comment on above: Performed By: #### C BC ####[facility] [address] [place], [place] [address]Dr. Chrissy Frazier LYMPH # 1.7 103/ul Normal 1.2-3.8 [facility] Comment on above: Performed By: #### C BC ####[facility] [address] [place] [address]Dr. Tishrowan Frazier Lymphocytes/100 WBC (Bld) 11.9 % Critically low 20.5-60.0 [facility] Comment on above: Performed By: #### C BC ####[facility] [address] [place] [address]DrNancy Frazier MANUAL DIFF REQ NO Normal The [facility] Comment on above: Performed By: #### C BC ####[facility] [address] [place] [address]Dr. Chrissy Frazier MCH (RBC) [Entitic mass] 29.3 pg Normal 25.9-34.0 [facility] Comment on above: Performed By: #### C BC ####[facility] [address] [place], [place] [address]Dr. Chrissy Freddie MCHC (RBC) [Mass/Vol] 34.2 g/dL Normal 29.9-35.2 [facility] Comment on above: Performed By: #### C BC ####[facility] [address] [place], [place] [address]DrNancy Frazier MCV (RBC) [Entitic vol] 85.8 fL Normal 80.0-94.0 [facility] Comment on above: Performed By: #### C BC ####[facility] [address]xc[address] [place] [address]Dr. Chrissy Frazier MONO # 0.6 103/ul Normal 0.3-0.8 [facility] Comment on above: Performed By: #### C BC ####[place] [address] [place], [place] [address]Dr. Chrissy Frazier Monocytes/100 WBC (Bld) 4.2 % Normal 1.7-12.0 [facility] Comment on above: Performed By: #### C BC ####[place] Hz[address] [place], [place] [address]Dr. Chrissy Frazier NEUT # 12.0 103/ul Critically high 1.4-6.[address] [facility] Comment on above: Performed By: #### C BC ####[facility] [address] [place] [address]Dr. Chrissy Frazier Neutrophils/100 WBC (Bld) 83.4 % Critically high 43.0-75.0 [facility] Comment on above: Performed By: #### C BC ####[facility] [address] [place] [address]Dr. Chrissy Frazier Platelet mean volume (Bld) [Entitic vol] 10.4 fL Normal 9.5-13.5 [facility] Comment on above: Performed By: #### C BC ####[facility] [address] [place] [address]Dr. Chrissy Frazier PLT 313 103/ul Normal 150-450 [facility] Comment on above: Performed By: #### C BC ####[place] [address] [place], [place] [address]Dr. Chrissy Frazier RBC 4.71 106/ul Normal 4.70-6.10 [facility] Comment on above: Performed By: #### C BC ####[place] [address] [place], [place] [address]Dr. Chrissy Frazier WBC 14.4 103/ul Critically high 4.0-11.[address] [facility] Comment on above: Performed By: #### C BC ####[place] [address] [place], [place] [address]DrNancy Chrissy Freddie CULTURE URINEon 01-04-2023 CULTURE URINE Culture Observations : NO GROWTH. Normal [facility] Comment on above: Performed By: #### U RCX ####[place] [address] [place], [place] [address]DrNancy Frazier DRUG SCREEN RAPID (URINE)on 01-04-2023 AMP Negative Normal NEGATIVE [facility] Comment on above: Performed By: #### D RUGRPD, UAMIC ####[place] [address] [place], [place] [address]DrNancy Frazier BAR Negative Normal NEGATIVE [facility] Comment on above: Performed By: #### D RUGRPD, UAMIC ####[facility] [address] [place] [id number]. Chrissy Frazier BUP Negative Normal NEGATIVE [facility] Comment on above: Performed By: #### D RUGRPD, UAMIC ####[place] [address] [place], [place] [id number]. Chrissy Frazier BZO Positive Abnormal NEGATIVE [facility] Comment on above: Performed By: #### D RUGRPD, UAMIC ####[place] [address] [place], [place] [id number]. Chrissy Frazier LAUREN Negative Normal NEGATIVE [facility] Comment on above: Performed By: #### D RUGRPD, UAMIC ####[place] [address] [place], [place] [address]Dr. Chrissy Frazier CUT-OFFS SEE BELOW Normal [facility] Comment on above: Result Comment: AMP (Amphetamine): 500ng/mL, BAR (Barbituates): 200 ng/mL, BZO (Benzodiazepines): 150 ng/mL, BUP (Buprenorphine): 10 ng/mL, LAUREN (Cocaine): 150 ng/mL, mAMP (Methamphetamine): 500 ng/mL, MTD (Methadone): 200 ng/mL, OPI (Opiates): 100 ng/mL, OXY (Oxycodone): 100 ng/mL, PCP (Phencyclidine): 25 ng/mL, PPX (Propoxyphene): 300 ng/mL, THC (Cannabinoids): 50 ng/mL, TCA (Trycyclic Antidepressants): 300 ng/mL Performed By: #### D RUGRPD, UAMIC ####[place] [address] [place], [place] [id number]. Chrissy Frazier DRUG CUT HEADER DRUG CLASS TEST SYSTEM CUT-OFF CONCENTRATIONS ARE FOLLOWS: Normal [facility] Comment on above: Performed By: #### D RUGRPD, UAMIC ####[place] [address] [place], [place] [id number]. Chrissy Frazier mAMP Negative Normal NEGATIVE [facility] Comment on above: Performed By: #### D REYES, UAMIC ####[facility] [address] [place] [address]Dr. Chrissy Frazier MTD Negative Normal NEGATIVE [facility] Comment on above: Performed By: #### D REYES, UAMIC ####[facility] [address] [place] [address]Dr. Chrissy Frazier OPI Negative Normal NEGATIVE [facility] Comment on above: Performed By: #### D CHAYAD, UAMIC ####[facility] [address] [place] [address]Dr. Chrissy Frazier OXY Negative Normal NEGATIVE [facility] Comment on above: Performed By: #### D REYES, UAMIC ####[facility] [address] [place] [address]Dr. Chrissy Frazier PCP Negative Normal NEGATIVE [facility] Comment on above: Performed By: #### Amelie CHAMBERS, UAMIC ####[place] [address] [place], [place] [address]Dr. Chrissy Frazier PPX Negative Normal NEGATIVE [facility] Comment on above: Performed By: #### D REYES, UAMIC ####[place] [address] [place], [place] [address]Dr. Chrissy Frazier TCA Positive Abnormal NEGATIVE [facility] Comment on above: Performed By: #### Amelie CHAMBERS, UAMIC ####[facility] [address]xs[address]mit[address] [place] [address]Dr. Chrissy Frazier THC Positive Abnormal NEGATIVE [facility] Comment on above: Performed By: #### D REYES, UAMIC ####[facility] [address] [place] [address]Dr. Chrissy Frazier LIPASEon 01-04-2023 Lipase [Catalytic activity/Vol] 57.0 U/L Critically low 73.0-393.0 [facility] Comment on above: Performed By: #### L IPA ####[facility] [address] [place] [address]Dr. Chrissy Frazier PROF 14(COMP METB)on 02-14-2 023 Albumin [Mass/Vol] 3.6 g/dL Normal 3.4-5.0 [facility] Comment on above: Performed By: #### C MP ####[facility] [address] [place] [address]Dr. Tishrowan Freddie Albumin/Globulin [Mass ratio] 1.0 {ratio} Normal [facility] Comment on above: Performed By: #### C MP ####[facility] [address] [place] [address]Dr. Tishrowan Freddie ALP [Catalytic activity/Vol] 67 U/L Normal 46-116 [facility] Comment on above: Performed By: #### C MP ####[place] [address] [place], [place] [address]Dr. Tishrowan Freddie ALT [Catalytic activity/Vol] 26 U/L Normal 16-63 [facility] Comment on above: Performed By: #### C MP ####[facility] [address] [place], [place] [address]Dr. Chrissy Frazier Anion gap [Moles/Vol] 16.3 mmol/L Normal [facility] Comment on above: Performed By: #### C MP ####[facility] [address] [place], [place] [address]Dr. Chrissy Frazier AST [Catalytic activity/Vol] 17 U/L Normal 15-37 [facility] Comment on above: Performed By: #### C MP ####[place] [address] [place], [place] [address]Dr. Chrissy Frazier Bilirubin [Mass/Vol] 0.4 mg/dL Normal 0.2-1.0 [facility] Comment on above: Performed By: #### C MP ####[facility] [address] [place], [place] [address]Dr. Chrissy Frazier Calcium [Mass/Vol] 8.7 mg/dL Normal 8.5-10.1 [facility] Comment on above: Performed By: #### C MP ####[place] [address] [place], [place] [address]Dr. Chrissy Frazier Chloride [Moles/Vol] 106 mmol/L Normal 98-107 [facility] Comment on above: Performed By: #### C MP ####[facility] [address] [place] [address]Dr. Chrissy Frazier CO2 [Moles/Vol] 22.6 mmol/L Normal 21.0-32.0 [facility] Comment on above: Performed By: #### C MP ####[facility] [address] [place] [address]Dr. Chrissy Frazier Creatinine [Mass/Vol] 0.99 mg/dL Normal 0.70-1.30 [facility] Comment on above: Performed By: #### C MP ####[facility] [address] [place] [address]Dr. Chrissy Frazier EGFR-AF HAITIAN >60 Normal >=60 [facility] Comment on above: Performed By: #### C MP ####[place] Rvpuyqhdel[address] [place], [place] [address]Dr. Chrissy Freddie EGFR-NON AF HAITIAN >60 Normal >=60 [facility] Comment on above: Performed By: #### C MP ####[place] Ofywimhwth34[address] [place], [place] [address]Dr. Chrissy Freddie Globulin (S) [Mass/Vol] 3.6 g/dL Normal [facility] Comment on above: Performed By: #### C MP ####[place] Sajbxsycup[address] [place] [address]Dr. Chrissy Freddie Glucose [Mass/Vol] 138 mg/dL Critically high 74-106 [facility] Comment on above: Performed By: #### C MP ####[place] Ooulmncaey24[address] [place] [address]Dr. Chrissy Frazier Potassium [Moles/Vol] 3.9 mmol/L Normal 3.5-5.1 [facility] Comment on above: Performed By: #### C MP ####[place] Pxlcibymns9[address] [place] [address]Dr. Chrissy Frazier Protein [Mass/Vol] 7.2 g/dL Normal 6.4-8.2 [facility] Comment on above: Performed By: #### C MP ####[place] Urwnyowinl70[address] [place] [address]Dr. Chrissy Frazier Sodium [Moles/Vol] 141 mmol/L Normal 136-145 [facility] Comment on above: Performed By: #### C MP ####[place] Pboopsjwxn2148 [place] [address]Dr. Chrissy Frazier Urea nitrogen [Mass/Vol] 10.0 mg/dL Normal 7.0-18.0 [facility] Comment on above: Performed By: #### C MP ####[place] Lkjnecneuq[address] [place], [place] [address]Dr. Chrissy Frazier Urea nitrogen/Creatinine [Mass ratio] 10.1 mg/mg Normal [facility] Comment on above: Performed By: #### C MP ####[place] Yhnqeasbgu[address] [place], [place] [address]Dr. Chrissy Frazier UA RANDOM W/MICROSCOPICon BACTERIA TRACE Abnormal NONE SEEN [facility] Comment on above: Performed By: #### D REYES UAMIC ####[place] Ksqchwnpga6[address] [place], [place] [address]Dr. Chrissy Frazier Bilirubin Ql (U) Negative Normal NEGATIVE The [facility] Comment on above: Performed By: #### D REYES UAMIC ####[place] Ytogscvbhs[address] [place], [place] [address]Dr. Chrissy Frazier CAST NONE SEEN Normal NONE SEEN [facility] Comment on above: Performed By: #### D REYES UAMIC ####[place] Ajialjoeoc42[address] [place], [place] [address]Dr. Chrissy Fraizer Clarity (U) CLEAR Normal CLEAR [facility] Comment on above: Performed By: #### D REYES UAMIC ####[place] Wrdpauapbx[address] [place], [place] [address]Dr. Chrissy Frazier Color (U) YELLOW Normal YELLOW [facility] Comment on above: Performed By: #### D REYES UAMIC ####[place] Bhkvkflpyw[address] [place], [place] [address]Dr. Chrissy Frazier Crystals LM Nom (Urine sed) NONE SEEN Normal NONE SEEN [facility] Comment on above: Performed By: #### Amelie CHAMBERS UAMIC ####[place] Oivftvbguz[address] [place] [address]Dr. Chrissy Frazier Epithelial cells LM Ql (Urine sed) NONE SEEN Normal NONE SEEN /RARE The [facility] Comment on above: Performed By: #### Amelie CHAMBERS UAMIC ####[place] Owsyzjtqfx3209 [place] [address]Dr. Chrissy Frazier Glucose Ql (U) Negative Normal NEGATIVE The [facility] Comment on above: Performed By: #### Amelie CHAMBERS UAMIC ####[place] Ahrdmegwvr94[address] [place], [place] [address]Dr. Chrissy Frazier Hemoglobin Ql (U) Negative Normal NEGATIVE The [facility] Comment on above: Performed By: #### Amelie CHAMBERS UAMIC ####[place] Owgbqiwrrt[address] [place], [place] [address]Dr. Chrissy Frazier Ketones Ql (U) 15 mg/dl Abnormal NEGATIVE The [facility] Comment on above: Performed By: #### Amelie CHAMBERS UAMIC ####[place] Lnbwchednv48[address] [place], [place] [address]Dr. Chrissy Frazier LEUKOCYTES Negative Normal NEGATIVE [facility] Comment on above: Performed By: #### Amelie CHAMBERS UAMIC ####[place] Kjoyrkwpru[address] [place], [place] [address]Dr. Chrissy Frazier MUCOUS NONE SEEN Normal NONE SEEN The [facility] Comment on above: Performed By: #### Amelie CHAMBERS UAMIC ####[place] Xmghoswbzf0622 [place] [address]Dr. Chrissy Frazier Nitrite Ql (U) Negative Normal NEGATIVE The [facility] Comment on above: Performed By: #### Amelie CHAMBERS UAMIC ####[place] Uwqhnwnywg9333 [place] [address]Dr. Chrissy Frazier pH (U) 6.5 [pH] Normal 5-9 [facility] Comment on above: Performed By: #### D REYES, UAMIC ####[place] Jckengytay85[address] [place] [address]Dr. Chrissy Frazier RBC NONE SEEN Abnormal 0-2 [facility] Comment on above: Performed By: #### D REYES, UAMIC ####[place] Hsaolsrcqu5[address] [place] [address]Dr. Chrissy Frazier SPEC GRAVITY 1.020 Normal 1.005-<=1.025 [facility] Comment on above: Performed By: #### D REYES UAMIC ####[place] Igqcfclwjh1290 [place] [address]Dr. Chrissy Frazier UA PROTEIN Negative Normal NEGATIVE/ TRACE [facility] Comment on above: Performed By: #### D REYES UAMIC ####[place] Ywufxduvdu7878 [place] [address]Dr. Chrissy Frazier Urobilinogen Qn (U) 0.2 {Estrellita'U}/dL Normal 0.2 - 1. 0 [facility] Comment on above: Performed By: #### D REYES UAMIC ####[place] Jltvfarkfj[address] [place], [place] [address]Dr. Chrissy Frazier WBC NONE SEEN Normal NONE SEEN [facility] Comment on above: Performed By: #### D REYES UAMIC ####[place] Oucmmszewj64[address] [place] [address]Dr. Chrissy Frazier AMMONIAon 01-03-2023 Ammonia (P) [Moles/Vol] 17 umol/L Normal 11-32 [facility] Comment on above: Performed By: #### A MM ####[place] Afzaztdmqj[address] [place], [place] [address]Dr. Chrissy Frazier AMYLASEon 01-03-2023 Amylase [Catalytic activity/Vol] 38 U/L Normal 25-115 [facility] Comment on above: Performed By: #### L IPA, TERRENCE, CMP, MG ####[place] Prmzslirdk69[address] [place] [address]Dr. Chrissy Frazier CBC AUTO DIFFon 01-03-2023 BASO # 0.1 103/ul Normal 0.0-0.1 [facility] Comment on above: Performed By: #### C BC ####[place] Jnelejdvpp65[address] [place] [address]Dr. Chrissy Frazier Basophils/100 WBC (Bld) 0.4 % Normal 0.2-2.0 [facility] Comment on above: Performed By: #### C BC ####[place] Onbbozjfro[address] [place], [place] [address]Dr. Chrissy Frazier EO # 0.1 103/ul Normal 0.0-0.7 [facility] Comment on above: Performed By: #### C BC ####[place] Eefvbvteic[address] [place], [place] [address]Dr. Chrissy Frazier Eosinophils/100 WBC (Bld) 0.3 % Critically low 0.9-7.0 [facility] Comment on above: Performed By: #### C BC ####[place] Ecfioberwo88[address] [place], [place] [address]Dr. Chrissy Frazier Erythrocyte distribution width (RBC) [Ratio] 13.7 % Normal 11.0-15.0 [facility] Comment on above: Performed By: #### C BC ####[place] Efczjjxccw[address] [place], [place] [address]Dr. Chrissy Frazier Hematocrit (Bld) [Volume fraction] 46.1 % Normal 42.0-54.0 [facility] Comment on above: Performed By: #### C BC ####[place] Btcetzpmoh332[address] [place], [place] [address]Dr. Chrissy Frazier Hemoglobin (Bld) [Mass/Vol] 15.4 g/dL Normal 14.0-18.0 [facility] Comment on above: Performed By: #### C BC ####[place] Nvcvwlrcsq9[address] [place], [place] [address]Dr. Tishrowan Frazier IG # 0.11 10e3/ul Critically high 0.00-0.03 [facility] Comment on above: Performed By: #### C BC ####[place] Vppnnaemuf[address] [place] [address]Dr. Chrissy Frazier IG % 0.6 % Critically high 0.0-0.5 The [facility] Comment on above: Performed By: #### C BC ####[place] Snycgawbdb60[address] [place], [place] [address]Dr. Chrissy Frazier LYMPH # 2.5 103/ul Normal 1.2-3.8 [facility] Comment on above: Performed By: #### C BC ####[place] Uglbtjnkzm[address] [place], [place] [address]Dr. Chrissy Frazier Lymphocytes/100 WBC (Bld) 13.9 % Critically low 20.5-60.0 [facility] Comment on above: Performed By: #### C BC ####[place] Twhzmpelmo[address] [place], [place] [address]Dr. Chrissy Frazier MANUAL DIFF REQ NO Normal The [facility] Comment on above: Performed By: #### C BC ####[place] Iguclrqbca9621 [place] [address]Dr. Tishrowan Frazier MCH (RBC) [Entitic mass] 28.6 pg Normal 25.9-34.0 [facility] Comment on above: Performed By: #### C BC ####[place] Vnivvcvptv9[address] [place], [place] [address]Dr. Chrissy Freddie MCHC (RBC) [Mass/Vol] 33.4 g/dL Normal 29.9-35.2 [facility] Comment on above: Performed By: #### C BC ####[place] Pgnyvxhmmc[address] [place], [place] [address]DrNancy Frazier MCV (RBC) [Entitic vol] 85.7 fL Normal 80.0-94.0 [facility] Comment on above: Performed By: #### C BC ####[place] Oypzbuargp[address] [place], [place] [address]DrNancy Frazier MONO # 0.7 103/ul Normal 0.3-0.8 [facility] Comment on above: Performed By: #### C BC ####[place] Bbdniafczs[address] [place], [place] [address]Dr. Chrissy Frazier Monocytes/100 WBC (Bld) 4.0 % Normal 1.7-12.0 [facility] Comment on above: Performed By: #### C BC ####[place] Gkuimcmgki67[address] [place] [address]Dr. Chrissy Frazier NEUT # 14.3 103/ul Critically high 1.4-6.[address] [facility] Comment on above: Performed By: #### C BC ####[place] Rsgyehofrb6733 [place] [address]Dr. Chrissy Frazier Neutrophils/100 WBC (Bld) 80.8 % Critically high 43.0-75.0 [facility] Comment on above: Performed By: #### C BC ####[place] Lgrrdeqvvl[address] [place], [place] [address]Dr. Chrissy Frazier Platelet mean volume (Bld) [Entitic vol] 10.4 fL Normal 9.5-13.5 [facility] Comment on above: Performed By: #### C BC ####[place] Uqkiiigqtd[address] [place], [place] [address]Dr. Chrissy Frazier PLT 437 103/ul Normal 150-450 [facility] Comment on above: Performed By: #### C BC ####[place] Ephrwopgna[address] [place], [place] [address]Dr. Chrissy Frazier RBC 5.38 106/ul Normal 4.70-6.10 [facility] Comment on above: Performed By: #### C BC ####[place] Xbxhmymkkc4187 [place] [id number]. Chrissy Frazier WBC 17.7 103/ul Critically high 4.0-11.[address] [facility] Comment on above: Performed By: #### C BC ####[place] Rvaalcxidv[address] [place], [place] [address]Dr. Chrissy Frazier CULTURE BLOODon 01-03-2023 Microscopic examination of blood, culture Culture Observations: NO GROWTH AT 5 DAYS. Normal [facility] Comment on above: Performed By: #### B LDCX1 ####[place] Ftixpnqufh[address] [place], [place] [address]Dr. Chrissy Frazier Performed By: #### B LDCX2 ####[place] Viissnuutr[address] [place] [address]Dr. Chrissy Frazier ECHOCARDIO M/2D COMPLETEon 0 01-03-2023 ECHOCARDIO M/2D COMPLETE Normal [facility] LACTATE/LACTIC ACIDon 2022 Lactate [Moles/Vol] 2.7 mmol/L Critically high 0.4-1.9 [facility] Comment on above: Performed By: #### L ACT ####[place] Mzfmqjqbwu0087 [place] [address]Dr. Chrissy Frazier Lactate [Moles/Vol] 6.3 mmol/L Critically high 0.4-1.9 [facility] Comment on above: Performed By: #### L ACT ####[place] Whnsbbxlse63[address] [place] [address]Dr. Chrissy Frazier LIPASEon 01-03-2023 Lipase [Catalytic activity/Vol] 74.0 U/L Normal 73.0-393.0 [facility] Comment on above: Performed By: #### L IPA, TERRENCE, CMP, MG ####[place] Vxqbmerxcb90[address] [place] [address]Dr. Chrissy Frazier MAGNESIUMon 01-03-2023 Magnesium [Mass/Vol] 1.6 mg/dL Critically low 1.8-2.4 [facility] Comment on above: Performed By: #### L IPA, TERRENCE, CMP, MG ####[place] Bnkjwvrouq7[address] [place] [address]Dr. Crhissy Frazier PROF 14(COMP METB)on 023 Albumin [Mass/Vol] 4.3 g/dL Normal 3.4-5.0 [facility] Comment on above: Performed By: #### L IPA, TERRENCE, CMP, MG ####[place] Zkgvahoejk027[address] [place] [address]Dr. Chrissy Frazier Albumin/Globulin [Mass ratio] 1.1 {ratio} Normal [facility] Comment on above: Performed By: #### L IPA, TERRENCE, CMP, MG ####[place] Itjbnfpdgb4005 [place] [id number]. Chrissy Frazier ALP [Catalytic activity/Vol] 87 U/L Normal 46-116 [facility] Comment on above: Performed By: #### L IPA, TERRENCE, CMP, MG ####[place] Wzxuljjqrr27[address] [place] [address]Dr. Chrissy Frazier ALT [Catalytic activity/Vol] 32 U/L Normal 16-63 [facility] Comment on above: Performed By: #### L IPA, TERRENCE, CMP, MG ####[place] Piskegjvdc8106 [place] [address]Dr. Chrissy Frazier Anion gap [Moles/Vol] 24.0 mmol/L Normal [facility] Comment on above: Performed By: #### L IPA, TERRENCE, CMP, MG ####[place] Waovcbglli5775 [place] [address]Dr. Chrissy Frazier AST [Catalytic activity/Vol] 22 U/L Normal 15-37 [facility] Comment on above: Performed By: #### L IPA, TERRENCE, CMP, MG ####[place] Qywbemahac5[address] [place] [address]Dr. Chrissy Frazier Bilirubin [Mass/Vol] 0.6 mg/dL Normal 0.2-1.0 [facility] Comment on above: Performed By: #### L IPA, TERRENCE, CMP, MG ####[place] Chkmjpvuiy4[address] [place] [address]Dr. Chrissy Frazier Calcium [Mass/Vol] 9.6 mg/dL Normal 8.5-10.1 [facility] Comment on above: Performed By: #### L IPA, TERRENCE, CMP, MG ####[place] Rewkhmzejl3798 [place] [address]Dr. Chrissy Frazier Chloride [Moles/Vol] 103 mmol/L Normal 98-107 [facility] Comment on above: Performed By: #### L IPA, TERRENCE, CMP, MG ####[place] Vuinmviroy03[address] [place] [address]Dr. Chrissy Frazier CO2 [Moles/Vol] 16.7 mmol/L Critically low 21.0-32.0 [facility] Comment on above: Performed By: #### L IPA, TERRENCE, CMP, MG ####[place] Hcpltsdggu70[address] [place] [address]Dr. Chrissy Frazier Creatinine [Mass/Vol] 1.42 mg/dL Critically high 0.70-1.30 [facility] Comment on above: Performed By: #### L IPA, TERRENCE, CMP, MG ####[place] Vgnhcfpejg63[address] [place] [address]Dr. Chrissy Frazier EGFR-AF HAITIAN >60 Normal >=60 [facility] Comment on above: Performed By: #### L IPA, TERRENCE, CMP, MG ####[place] Tqdrvilnam65[address] [place] [address]Dr. Chrissy Frazier EGFR-NON AF HAITIAN 58 mL/min/1.73m2 Critically low >=60 [facility] Comment on above: Performed By: #### L IPA, TERRENCE, CMP, MG ####[place] Edpqgeackj0196 [place] [address]Dr. Chrissy Frazier Globulin (S) [Mass/Vol] 4.0 g/dL Normal [facility] Comment on above: Performed By: #### L IPA, TERRENCE, CMP, MG ####[place] Okmteyjzux39[address] [place] [address]Dr. Tishrowan Frazier Glucose [Mass/Vol] 149 mg/dL Critically high 74-106 [facility] Comment on above: Performed By: #### L IPA, TERRENCE, CMP, MG ####[place] Mjydykhvoc54[address] [place] [address]Dr. Chrissy Frazier Potassium [Moles/Vol] 3.7 mmol/L Normal 3.5-5.1 [facility] Comment on above: Performed By: #### L IPA, TERRENCE, CMP, MG ####[place] Lqtsnuypya3387 [place] [address]Dr. Tishrowan Frazier Protein [Mass/Vol] 8.3 g/dL Critically high 6.4-8.2 [facility] Comment on above: Performed By: #### L IPA, TERRENCE, CMP, MG ####[place] Dkbnnspnxj7978 [place] [id number]. Chrissy Frazier Sodium [Moles/Vol] 140 mmol/L Normal 136-145 [facility] Comment on above: Performed By: #### L IPA, TERRENCE, CMP, MG ####[place] Whcelshccr8168 [place] [phone]. Chrissy Frazier Urea nitrogen [Mass/Vol] 16.0 mg/dL Normal 7.0-18.0 [facility] Comment on above: Performed By: #### L IPA, TERRENCE, CMP, MG ####[place] Lclcczsheb33[address] [place] [address]Dr. Chrissy Frazier Urea nitrogen/Creatinine [Mass ratio] 11.3 mg/mg Normal [facility] Comment on above: Performed By: #### L IPA, TERRENCE, CMP, MG ####[place] Bsvnsikoky86[address] [place] [address]Dr. Chrissy Frazier SED [facility] SED RATE 37 mm/hr Critically high <=15 The [facility] Comment on above: Performed By: #### S EDR ####[place] Zgghfwbgtf[address] [place] [address]Dr. Chrissy Frazier XR ABD FLAT UP_PA Enoch 01-03 XR ABD FLAT UP_PA CH Normal The [facility] [facility] HEART CORONARY ANGIOGRAMo n 12-13-2022 CT [...] CT examination Electronically signed: Maikel Chappell. Normal [facility] Office Visiton 11-24-2022 Follow-up visit [id number] Paulina Montero 1990 M Date Provider Department Center 11/24/2022 3848-RAQUEL BANKS [facility] Family History Problem Relation Age of Onset Coronary artery disease Father Heart attack Father 54 Family Status - Relation Status Age at Father Level of Service:96578 [place] OFFICE/OUTPATIENT NEW MODERATE MDM 45-59 MINUTES Reason for Visit and Comments: abnormal stress test [Other] Normal [facility] CARDIAC STRESS TESTon 2021 CARDIAC STRESS TEST Normal [facility] AMYLASEon 10-24-2022 Amylase [Catalytic activity/Vol] 26 U/L Normal 25-115 [facility] Comment on above: Performed By: #### C MPOSWALD AMY ####[place] Spjibzthka58[address] [place] [address]Dr. Chrissy Frazier CBC AUTO DIFFon 10-24-2022 BASO # 0.0 103/ul Normal 0.0-0.1 [facility] Comment on above: Performed By: #### C BC ####[place] Cwkporcniz0309 [place] [address]Dr. Chrissy Frazier Basophils/100 WBC (Bld) 0.2 % Normal 0.2-2.0 [facility] Comment on above: Performed By: #### C BC ####[place] Twjmtvbfte1162 [place] [address]Dr. Chrissy Frazier EO # 0.1 103/ul Normal 0.0-0.7 [facility] Comment on above: Performed By: #### C BC ####[place] Sfrdtkaccs9547 [place] [address]Dr. Chrissy Frazier Eosinophils/100 WBC (Bld) 0.4 % Critically low 0.9-7.0 [facility] Comment on above: Performed By: #### C BC ####[place] Zwjglmnoyj2243 [place] [address]Dr. Chrissy Frazier Erythrocyte distribution width (RBC) [Ratio] 14.6 % Normal 11.0-15.0 [facility] Comment on above: Performed By: #### C BC ####[place] Cbezyxhwmi7189 [place] [address]Dr. Tishrowan Freddie Hematocrit (Bld) [Volume fraction] 39.4 % Critically low 42.0-54.0 [facility] Comment on above: Performed By: #### C BC ####[place] Wuofcwptuu1568 [place] [address]DrNancy Frazier Hemoglobin (Bld) [Mass/Vol] 13.2 g/dL Critically low 14.0-18.0 [facility] Comment on above: Performed By: #### C BC ####[place] Qfsohesnpa4589 [place] [address]DrNancy Frazier IG # 0.07 10e3/ul Critically high 0.00-0.03 [facility] Comment on above: Performed By: #### C BC ####[place] Cfw[address]uybx[address] [place], [place] [address]DrNancy Frazier IG % 0.5 % Normal 0.0-0.5 [facility] Comment on above: Performed By: #### C BC ####[place] Ftgebasazz[address] [place], [place] [address]DrNancy Frazier LYMPH # 3.7 103/ul Normal 1.2-3.8 [facility] Comment on above: Performed By: #### C BC ####[place] Pjoxqtspab8348 [place] [address]DrNancy Frazier Lymphocytes/100 WBC (Bld) 27.0 % Normal 20.5-60.0 [facility] Comment on above: Performed By: #### C BC ####[place] Bkoxdvcepg[address] [place], [place] [address]DrNancy Frazier MANUAL DIFF REQ NO Normal [facility] Comment on above: Performed By: #### C BC ####[place] Cdehrczwsn4779 [place] [address]DrNancy Frazier MCH (RBC) [Entitic mass] 27.8 pg Normal 25.9-34.0 [facility] Comment on above: Performed By: #### C BC ####[place] Echhzzzlxa9927 [place] [phone]. Tishrowan Freddie MCHC (RBC) [Mass/Vol] 33.5 g/dL Normal 29.9-35.2 [facility] Comment on above: Performed By: #### C BC ####[place] Jxpopzdhsh4019 [place] [address]Dr. Chrsisy Frazier MCV (RBC) [Entitic vol] 82.9 fL Normal 80.0-94.0 [facility] Comment on above: Performed By: #### C BC ####[place] Mqzybpzvuq4369 [place] [address]DrNancy Frazier MONO # 1.2 103/ul Critically high 0.3-0.8 The [facility] Comment on above: Performed By: #### C BC ####[place] Nyoyesjsei[address] [place], [place] [address]Dr. Chrissy Frazier Monocytes/100 WBC (Bld) 8.4 % Normal 1.7-12.0 [facility] Comment on above: Performed By: #### C BC ####[place] Sahfberyrp[address] [place], [place] [address]Dr. Chrissy Frazier NEUT # 8.8 103/ul Critically high 1.4-6.5 The [facility] Comment on above: Performed By: #### C BC ####[place] Nbllqvzeal8[address] [place], [place] [address]Dr. Chrissy Frazier Neutrophils/100 WBC (Bld) 63.5 % Normal 43.0-75.0 [facility] Comment on above: Performed By: #### C BC ####[place] Gaptfzqfki[address] [place], [place] [address]DrNancy Frazier Platelet mean volume (Bld) [Entitic vol] 10.7 fL Normal 9.5-13.5 [facility] Comment on above: Performed By: #### C BC ####[place] Wppdndfaza[address] [place], [place] [address]Dr. Chrissy Frazier PLT 291 103/ul Normal 150-450 [facility] Comment on above: Performed By: #### C BC ####[place] Mzwuydyoid3986 [place] [address]Dr. Chrissy Frazier RBC 4.75 106/ul Normal 4.70-6.10 [facility] Comment on above: Performed By: #### C BC ####[place] Larmiarbjw7729 [place] [phone]. Chrissy Freddie WBC 13.8 103/ul Critically high 4.0-11.[address] [facility] Comment on above: Performed By: #### C BC ####[place] Dtgxjziuqs6880 [place] [address]Dr. Tishrowan Frazier LIPASEon 10-24-2022 Lipase [Catalytic activity/Vol] 44.0 U/L Critically low 73.0-393.0 [facility] Comment on above: Performed By: #### C MANA LIPA, TERRENCE ####[place] Svffjnyjft6754 [place] [address]Dr. Chrissy Frazier PROF 14(COMP METB)on 022 Albumin [Mass/Vol] 3.4 g/dL Normal 3.4-5.0 [facility] Comment on above: Performed By: #### C MP LIPA, TERRENCE ####[place] Xcljlvqecc4304 [place] [address]Dr. Tishrowan Frazier Albumin/Globulin [Mass ratio] 0.9 {ratio} Normal [facility] Comment on above: Performed By: #### C MP, LIPA, TERRENCE ####[place] Ynfpngyndg3201 [place] [address]Dr. Chrissy Frazier ALP [Catalytic activity/Vol] 67 U/L Normal 46-116 [facility] Comment on above: Performed By: #### C MP, LIPA, TERRENCE ####[place] Cdaxfzixri8502 [place] [address]Dr. Chrissy Frazier ALT [Catalytic activity/Vol] 25 U/L Normal 16-63 [facility] Comment on above: Performed By: #### C MP, LIPA, TERRENCE ####[place] Melpkzsnog7847 [place] [id number]. Chrissy Frazier Anion gap [Moles/Vol] 14.5 mmol/L Normal [facility] Comment on above: Performed By: #### C MP, LIPA, TERRENCE ####[place] Bshcaffmvk9138 [place] [address]Dr. Chrissy Frazier AST [Catalytic activity/Vol] 17 U/L Normal 15-37 [facility] Comment on above: Performed By: #### C MP, LIPA, TERRENCE ####[facility] Ylrsmyqudd4238 [place] [address]Dr. Chrissy Frazier Bilirubin [Mass/Vol] 0.5 mg/dL Normal 0.2-1.0 [facility] Comment on above: Performed By: #### C MP, LIPA, TERRENCE ####[place] Sgnbjwzdnq7371 [place] [address]Dr. Chrissy Frazier Calcium [Mass/Vol] 8.6 mg/dL Normal 8.5-10.1 [facility] Comment on above: Performed By: #### C MP, LIPA, TERRENCE ####[place] Sarxqqxseu[address] [place], [place] [address]Dr. Chrissy Frazier Chloride [Moles/Vol] 106 mmol/L Normal 98-107 [facility] Comment on above: Performed By: #### C MP, LIPA, TERRENCE ####[place] Ottidqhbav[address] [place], [place] [address]Dr. Chrissy Frazier CO2 [Moles/Vol] 22.8 mmol/L Normal 21.0-32.[address] [facility] Comment on above: Performed By: #### C MP, LIPA, TERRENCE ####[place] Jvbalzqfqi[address] [place], [place] [address]Dr. Chrissy Frazier Creatinine [Mass/Vol] 0.98 mg/dL Normal 0.70-1.30 [facility] Comment on above: Performed By: #### C MP, LIPA, TERRENCE ####[place] Auyvrkctvf7624 [place] [address]Dr. Chrissy Frazier EGFR-AF HAITIAN >60 Normal >=[address] [facility] Comment on above: Performed By: #### C TESSA ADAIRA, TERRENCE ####[place] [address]ipbrmuiuw[address] [place] [address]Dr. Chrissy Frazier EGFR-NON AF HAITIAN >60 Normal >=60 The [place] Comment on above: Performed By: #### C MANA LIPA, TERRENCE ####[place] Sraxvicxbu05[address] [place] [address]Dr. hCrissy Farzier Globulin (S) [Mass/Vol] 3.7 g/dL Normal [facility] Comment on above: Performed By: #### C MANA LIPA, TERRENCE ####[place] Uknfpoexgb38[address] [place] [address]Dr. Chrissy Frazier Glucose [Mass/Vol] 115 mg/dL Critically high 74-106 T [facility] Comment on above: Performed By: #### C TESSA ADAIRA, TERRENCE ####[place] Gpavxvgliw94[address] [place] [address]Dr. Chrissy Frazier Potassium [Moles/Vol] 3.3 mmol/L Critically low 3.5-5.1 [facility] Comment on above: Performed By: #### C TESSA ADAIRA, TERRENCE ####[place] Tyuqfrdhpv[address] [place], [place] [address]Dr. Chrissy Frazier Protein [Mass/Vol] 7.1 g/dL Normal 6.4-8.2 The [facility] Comment on above: Performed By: #### C MANA LIPA, TERRENCE ####[place] Pdbugoyymr[address] [place] [address]Dr. Chrissy Frazier Sodium [Moles/Vol] 140 mmol/L Normal 136-145 The [facility] Comment on above: Performed By: #### C TESSA ADAIRA, TERRENCE ####[place] Xvvnxubito55[address] [place] [address]Dr. Chrissy Frazier Urea nitrogen [Mass/Vol] 10.0 mg/dL Normal 7.0-18.0 The [place] Comment on above: Performed By: #### C MANA LIPA, TERRENCE ####[place] Cftnjdthvx[address] [place], [place] [address]Dr. Tishrowan Frazier Urea nitrogen/Creatinine [Mass ratio] 10.2 mg/mg Normal The [place] Comment on above: Performed By: #### C OSWALD ADAIR AMY ####[place] Oflqahxlbo[address] [place], [place] [address]Dr. Chrissy Freddie AMYLASEon 10-23-2022 Amylase [Catalytic activity/Vol] 31 U/L Normal 25-115 The [place] Comment on above: Performed By: #### C OSWALD ADAIR AMY ####[place] Ilaanknfaw48[address] [place], [place] [address]Dr. Tishrowan Frazier CBC AUTO DIFFon 10-23-2022 BASO # 0.1 103/ul Normal 0.0-0.1 The [place] Comment on above: Performed By: #### C BC ####[place] Gltxgfzfuj[address] [place], [place] [address]Dr. Chrissy Frazier Basophils/100 WBC (Bld) 0.3 % Normal 0.2-2.0 The [place] Comment on above: Performed By: #### C BC ####[place] Rsqsuwyddd[address] [place], [place] [address]Dr. Tishrowan Frazier EO # 0.1 103/ul Normal 0.0-0.7 The [facility] Comment on above: Performed By: #### C BC ####[place] Hdkkzuiozo47[address] [place], [place] [address]Dr. Chrissy Frazier Eosinophils/100 WBC (Bld) 0.3 % Critically low 0.9-7.0 The [facility] Comment on above: Performed By: #### C BC ####[place] Pgntaevxdf[address] [place], [place] [address]Dr. Tishrowan Frazier Erythrocyte distribution width (RBC) [Ratio] 14.5 % Normal 11.0-15.0 The [facility] Comment on above: Performed By: #### C BC ####[place] Sqdlwlebrd[address] [place], [place] [address]Dr. Chrissy Frazier Hematocrit (Bld) [Volume fraction] 44.0 % Normal 42.0-54.0 The [facility] Comment on above: Performed By: #### C BC ####[place] Qzhxhkhxrw4[address] [place] [id number]. Chrissy Frazier Hemoglobin (Bld) [Mass/Vol] 14.8 g/dL Normal 14.0-18.0 [facility] Comment on above: Performed By: #### C BC ####[place] Daduxlmuka4[address] [place] [id number]. Chrissy Frazier IG # 0.09 10e3/ul Critically high 0.00-0.03 [facility] Comment on above: Performed By: #### C BC ####[place] Qwdvkzxrnk5[address] [place] [address]Dr. Chrissy Freddie IG % 0.5 % Normal 0.0-0.5 [facility] Comment on above: Performed By: #### C BC ####[place] Akxqqmwwwv09[address] [place] [address]Dr. Chrissy Freddie LYMPH # 3.6 103/ul Normal 1.2-3.8 [facility] Comment on above: Performed By: #### C BC ####[place] Tsybzbxquc9[address] [place] [address]Dr. Chrissy Freddie Lymphocytes/100 WBC (Bld) 19.4 % Critically low 20.5-60.0 [facility] Comment on above: Performed By: #### C BC ####[place] Qjkxzjsbtu6507 [place] [address]Dr. Chrissy Freddie MANUAL DIFF REQ NO Normal [facility] Comment on above: Performed By: #### C BC ####[place] Jvsygqqkwh5163 [place] [phone]. Chrissy Frazier MCH (RBC) [Entitic mass] 28.1 pg Normal 25.9-34.0 The [place] Comment on above: Performed By: #### C BC ####[place] Spoqunjmcv3227 [place] [phone]. Chrissy Freddie MCHC (RBC) [Mass/Vol] 33.6 g/dL Normal 29.9-35.2 [facility] Comment on above: Performed By: #### C BC ####[place] Bejcrljqkf3087 [place] [phone]. Chrissy Frazier MCV (RBC) [Entitic vol] 83.5 fL Normal 80.0-94.0 The [place] Comment on above: Performed By: #### C BC ####[place] Mkxtybhloa9765 [place] [phone]. Chrissy Frazier MONO # 0.9 103/ul Critically high 0.3-0.8 The [facility] Comment on above: Performed By: #### C BC ####[place] Amvyyydees0898 [place] [phone]. Chrissy Freddie Monocytes/100 WBC (Bld) 4.9 % Normal 1.7-12.0 [facility] Comment on above: Performed By: #### C BC ####[place] [address]reate[address] [place], [place] [id number]. Chrissy Frazier NEUT # 13.9 103/ul Critically high 1.4-6.[address] [facility] Comment on above: Performed By: #### C BC ####[place] Ffiygxygct2619 [place] [phone]. Chrissy Freddie Neutrophils/100 WBC (Bld) 74.6 % Normal 43.0-75.0 The [place] Comment on above: Performed By: #### C BC ####[place] Jbihhgyksp8895 [place] [phone]. Chrissy Freddie Platelet mean volume (Bld) [Entitic vol] 10.5 fL Normal 9.5-13.5 The [place] Comment on above: Performed By: #### C BC ####[place] Ypqvnvcsxq3666 [place] [phone]. Chrissy Freddie PLT 402 103/ul Normal 150-450 The [place] Comment on above: Performed By: #### C BC ####[place] Xbwznrzmax8009 [place] [phone]. Chrissy Frazier RBC 5.27 106/ul Normal 4.70-6.10 The [place] Comment on above: Performed By: #### C BC ####[place] Rwvsszgmok3489 [place] [phone]. Chrissy Frazier WBC 18.6 103/ul Critically high 4.0-11.[address] [facility] Comment on above: Performed By: #### C BC ####[place] Jrzbdqopug0544 [place], [place] [address]Sg. Chrissy Frazier CULTURE BLOODon 10-23-2022 Microscopic examination of blood, culture Culture Observations: NO GROWTH AT 5 DAYS. Normal The [facility] Comment on above: Performed By: #### B LDCX2 ####[place] Dmiccllrvj94[address] [place] [phone]. Chrissy Frazier Microscopic examination of blood, culture Culture Observations: NO GROWTH AT 5 DAYS. Normal [facility] Comment on above: Performed By: #### B LDCX1 ####[place] Bnkgftgseo7438 [place] [phone]. Chrissy Frazier CULTURE URINEon 10-23-2022 CULTURE URINE Culture Observations : NO GROWTH. Normal [facility] Comment on above: Performed By: #### U RCX ####[place] Uieqbpvgkx28[address] [place] [phone]. Chrissy Frazier [facility]on SARS-CoV-2 (COVID-19) RNA RHIANNON+probe Ql (Unsp spec) Not detected Normal NOT DETECTED The [place] Comment on above: Result Comment: When diagnostic [...] for this test is supported by the Filter Tank Operator of Health and Human Service's declaration that [...] longer be used). Performed By: #### C VDTB ####[place] Ltuhpjsdpx47[address] [place], [place] [address]Dr. Chrissy Frazier INFLUENZA A AND B AGon 10-23 INFLUANE SEE BELOW Normal The [facility] Comment on above: Result Comment: Nega tive for Flu A protein angiten. Infection due to Flu A cannot be ruled out. Flu A angiten in the sample may be below the detection limit of the test. Performed By: #### I NFLUAB ####[place] Ybfayavclr[address] [place], [place] [address]Dr. Chrissy Frazier INFLUBNEG SEE BELOW Normal The [facility] Comment on above: Result Comment: Nega tive for Flu B protein antigen. Infection due to Flu B cannot be ruled out. Flu B antigen in the sample may be below the detection limit of the test. Performed By: #### I NFLUAB ####[place] Duzdxmkwoh[address] [place], [place] [address]Dr. Chrissy [facility] INFLUENZA A AG Negative Normal NEGATIVE SEE COMMENT The [place] Comment on above: Performed By: #### I NFLUAB ####[place] Sywvmnseks7[address] [place], [place] [address]Dr. Chrissy [facility] INFLUENZA B AG Negative Normal NEGATIVE SEE COMMENT The [place] Comment on above: Performed By: #### I NFLUAB ####[place] Hwxyyfblqc875[address] [place], [place] [address]Dr. Chrissy Frazier INTERNAL CONTROLS Within Normal Limits Normal Wi thin Normal Limits The [facility] Comment on above: Performed By: #### I NFLUAB ####[place] Phzwjuqfyt053[address] [place], [place] [address]Dr. Chrissy Freddie LACTATE/LACTIC ACIDon 2021 Lactate [Moles/Vol] 2.1 mmol/L Critically high 0.4-1.9 The [facility] Comment on above: Performed By: #### L ACT ####[place] Npsoihkrca[address] [place], [place] [address]Dr. Chrissy Frazier Lactate [Moles/Vol] 6.9 mmol/L Critically high 0.4-1.9 [facility] Comment on above: Performed By: #### L ACT ####[place] Mahvgrqenh[address] [place], [place] [address]Dr. Chrissy Frazier LIPASEon 10-23-2022 Lipase [Catalytic activity/Vol] 72.0 U/L Critically low 73.0-393.0 [facility] Comment on above: Performed By: #### C MP, LIPA, TERRENCE ####[place] Hffrrbpllw[address] [place], [place] [address]Dr. Chrissy Frazier PROF 14(COMP METB)on 022 Albumin [Mass/Vol] 3.9 g/dL Normal 3.4-5.0 [facility] Comment on above: Performed By: #### C MP, LIPA, TERRENCE ####[place] Fqeauvpypj[address] [place], [place] [address]Dr. Chrissy Frazier Albumin/Globulin [Mass ratio] 0.9 {ratio} Normal [facility] Comment on above: Performed By: #### C MP, LIPA, TERRENCE ####[place] Fttuyhjikh[address] [place], [place] [address]Dr. Chrissy Frazier ALP [Catalytic activity/Vol] 82 U/L Normal 46-116 The [facility] Comment on above: Performed By: #### C MP, LIPA, TERRENCE ####[place] Ryxvsycwvn258[address] [place], [place] [address]Dr. Chrissy Frazier ALT [Catalytic activity/Vol] 25 U/L Normal 16-63 The [facility] Comment on above: Performed By: #### C MP, LIPA, TERRENCE ####[place] Ztcdshutqm29[address] [place], [place] [address]Dr. Chrissy Frazier Anion gap [Moles/Vol] 18.1 mmol/L Normal [facility] Comment on above: Performed By: #### C MP, LIPA, TERRENCE ####[place] Hijyyhcfdx[address] [place], [place] [address]Dr. Chrissy Frazier AST [Catalytic activity/Vol] 17 U/L Normal 15-37 [facility] Comment on above: Performed By: #### C OSWALD ADAIR TERRENCE ####[place] Pwiekiijdg[address] [place] [address]Dr. Chrissy Frazier Bilirubin [Mass/Vol] 0.5 mg/dL Normal 0.2-1.0 [facility] Comment on above: Performed By: #### C OSWALD ADAIR, TERRENCE ####[place] Pyuzldqkuj[address] [place], [place] [address]Dr. Chrissy Frazier Calcium [Mass/Vol] 9.1 mg/dL Normal 8.5-10.1 [facility] Comment on above: Performed By: #### C OSWALD ADAIR, TERRENCE ####[place] Xjxltyzzwf[address] [place], [place] [address]Dr. Chrissy Frazier Chloride [Moles/Vol] 101 mmol/L Normal 98-107 [facility] Comment on above: Performed By: #### C OSWALD ADAIR, TERRENCE ####[place] Nftfqmwupj[address] [place], [place] [address]Dr. Chrissy Frazier CO2 [Moles/Vol] 19.2 mmol/L Critically low 21.0-32.0 The [facility] Comment on above: Performed By: #### C OSWALD ADAIR, TERRENCE ####[place] Zqwhxpjqkw[address] [place], [place] [address]Dr. Chrissy Frazier Creatinine [Mass/Vol] 1.72 mg/dL Critically high 0.70-1.30 [facility] Comment on above: Performed By: #### C OSWALD ADAIR, TERRENCE ####[place] Fcdgnltrum9[address] [place], [place] [address]Dr. Chrissy Frazier EGFR-AF HAITIAN 56 mL/min/1.73m2 Critically low >=60 The [facility] Comment on above: Performed By: #### C OSWALD ADAIR, TERRENCE ####[place] Bipyggsrno[address] [place], [place] [address]Dr. Chrissy Frazier EGFR-NON AF HAITIAN 46 mL/min/1.73m2 Critically low >=60 The [facility] Comment on above: Performed By: #### C MANA LIPA, TERRENCE ####[place] Gdvkxvppnh99[address] [place] [address]Dr. Chrissy Frazier Globulin (S) [Mass/Vol] 4.2 g/dL Normal [facility] Comment on above: Performed By: #### C MANA LIPA, TERRENCE ####[place] Xhtjejakoq2465 [place] [address]Dr. Chrissy Frazier Glucose [Mass/Vol] 126 mg/dL Critically high 74-106 T [facility] Comment on above: Performed By: #### C MP LIPA, TERRENCE ####[place] Pttphplzzt[address] [place], [place] [address]Dr. Chrissy Frazier Potassium [Moles/Vol] 3.3 mmol/L Critically low 3.5-5.1 [facility] Comment on above: Performed By: #### C MANA LIPA, TERRENCE ####[place] Htqsxvntuh[address] [place], [place] [address]Dr. Chrissy Frazier Protein [Mass/Vol] 8.1 g/dL Normal 6.4-8.2 [facility] Comment on above: Performed By: #### C MANA LIPA, TERRENCE ####[place] Otowurswdx[address] [place], [place] [address]Dr. Chrissy Frazier Sodium [Moles/Vol] 135 mmol/L Critically low 136-145 Th [facility] Comment on above: Performed By: #### C MP LIPA, TERRENCE ####[place] Ypgylkkbqs[address] [place], [place] [address]Dr. Chrissy Frazier Urea nitrogen [Mass/Vol] 13.0 mg/dL Normal 7.0-18.0 [facility] Comment on above: Performed By: #### C MP LIPA, TERRENCE ####[place] Fmdfatpsgc[address] [place], [place] [address]Dr. Chrissy Frazier Urea nitrogen/Creatinine [Mass ratio] 7.6 mg/mg Normal [facility] Comment on above: Performed By: #### C MP LIPA, TERRENCE ####[place] Hxjnhnqngv[address] [place], [place] [address]Dr. Chrissy Frazier UA RANDOM W/MICROSCOPICon BACTERIA NONE SEEN Normal NONE SEEN The [facility] Comment on above: Performed By: #### U AMIC ####[place] Fkjleljcvg8[address] [place] [address]Dr. Chrissy Frazier Bilirubin Ql (U) Negative Normal NEGATIVE The [facility] Comment on above: Performed By: #### U AMIC ####[place] Feonwlnhjb76[address] [place] [address]Dr. Chrissy Frazier CAST NONE SEEN Normal NONE SEEN The [facility] Comment on above: Performed By: #### U AMIC ####[place] Qkvtbmvxnv8533 [place] [address]Dr. Chrissy Frazier Clarity (U) CLEAR Normal CLEAR The [facility] Comment on above: Performed By: #### U AMIC ####[place] Iterkkynnm6646 [place] [address]Dr. Chrissy Frazier Color (U) LT. YELLOW Normal YELLOW The [facility] Comment on above: Performed By: #### U AMIC ####[place] Bemoyynqjo65[address] [place] [address]Dr. Chrissy Frazier Crystals LM Nom (Urine sed) NONE SEEN Normal NONE SEEN The [facility] Comment on above: Performed By: #### U AMIC ####[place] Ftocrbdiup3242 [place] [address]Dr. Chrissy Frazier Epithelial cells LM Ql (Urine sed) FEW Abnormal NONE SEEN /RARE The [facility] Comment on above: Performed By: #### U AMIC ####[place] Awtmtguupc9336 [place] [address]Dr. Chrissy Frazier Glucose Ql (U) Negative Normal NEGATIVE The [facility] Comment on above: Performed By: #### U AMIC ####[place] Amefbtpkyo8332 [place] [address]Dr. Chrissy Frazier Hemoglobin Ql (U) Negative Normal NEGATIVE The [facility] Comment on above: Performed By: #### U AMIC ####[place] Gizakzzusf[address] [place], [place] [address]Dr. Chrissy Frazier Ketones Ql (U) 15 mg/dl Abnormal NEGATIVE The [facility] Comment on above: Performed By: #### U AMIC ####[place] Dkpqprhtfj07[address] [place], [place] [address]Dr. Chrissy Frazier LEUKOCYTES Negative Normal NEGATIVE The [place] Comment on above: Performed By: #### U AMIC ####[facility] Mfyyosambq6896 [place] [address]Dr. Chrissy Frazier MUCOUS NONE SEEN Normal NONE SEEN The [facility] Comment on above: Performed By: #### U AMIC ####[place] Valocazdwm[address] [place], [place] [address]Dr. Chrissy Frazier Nitrite Ql (U) Negative Normal NEGATIVE The [facility] Comment on above: Performed By: #### U AMIC ####[place] Cbftyprtxo[address] [place], [place] [address]Dr. Tishrowan Frazier pH (U) 6.0 [pH] Normal 5-9 The [facility] Comment on above: Performed By: #### U AMIC ####[place] Ytrjkjyjdu[address] [place], [place] [address]Dr. Chrissy Freddie RBC 0-2 Normal 0-2 The [facility] Comment on above: Performed By: #### U AMIC ####[place] Nhfvhjumvj[address] [place], [place] [address]Dr. Chrissy Frazier SPEC GRAVITY 1.010 Normal 1.005-<=1.025 The [facility] Comment on above: Performed By: #### U AMIC ####[place] Xzzasxuihy[address] [place], [place] [address]Dr. Chrissy Frazier UA PROTEIN Negative Normal NEGATIVE/ TRACE The [facility] Comment on above: Performed By: #### U AMIC ####[place] Xgilohakmc[address] [place], [place] [address]Dr. Chrissy Freddie Urobilinogen Qn (U) 0.2 {Estrellita'U}/dL Normal 0.2 - 1. 0 The [facility] Comment on above: Performed By: #### U AMIC ####[place] Zyvcxxjbyy2210 [place] [address]Dr. Chrissy Frazier WBC NONE SEEN Normal NONE SEEN The [facility] Comment on above: Performed By: #### U AMIC ####[place] Cqvhmvaqnn64[address] [place], [place] [address]Dr. Chrissy Frazier AMYLASEon 10-22-2022 Amylase [Catalytic activity/Vol] 28 U/L Normal 25-115 The [facility] Comment on above: Performed By: #### L IPA, CMP, TERRENCE ####[place] Bcjvgwiffr8377 [place] [address]Dr. Chrissy Frazier CBC AUTO DIFFon 10-22-2022 BASO # 0.0 103/ul Normal 0.0-0.1 The [facility] Comment on above: Performed By: #### C BC ####[place] Iwmdctbdcz[address] [place], [place] [address]Dr. Chrissy Frazier Basophils/100 WBC (Bld) 0.2 % Normal 0.2-2.0 The [facility] Comment on above: Performed By: #### C BC ####[place] Zjafelivyy[address] [place], [place] [address]Dr. Chrissy Frazier EO # 0.0 103/ul Normal 0.0-0.7 The [facility] Comment on above: Performed By: #### C BC ####[place] Bvspizsvcv7912 [place] [address]Dr. Chrissy Frazier Eosinophils/100 WBC (Bld) 0.1 % Critically low 0.9-7.0 The [facility] Comment on above: Performed By: #### C BC ####[place] Nvayrxnvpi54[address] [place], [place] [address]Dr. Chrissy Frazier Erythrocyte distribution width (RBC) [Ratio] 14.4 % Normal 11.0-15.0 The [facility] Comment on above: Performed By: #### C BC ####[place] Gzneduxgtz[address] [place], [place] [address]Dr. Chrissy Frazier Hematocrit (Bld) [Volume fraction] 45.2 % Normal 42.0-54.0 The [facility] Comment on above: Performed By: #### C BC ####[facility] Wpllerjdsn9731 [place] [id number]. Chrissy Frazier Hemoglobin (Bld) [Mass/Vol] 15.4 g/dL Normal 14.0-18.0 The [facility] Comment on above: Performed By: #### C BC ####[place] Tppsjxsvvl1868 [place] [address]Dr. Chrissy Frazier IG # 0.07 10e3/ul Critically high 0.00-0.03 [facility] Comment on above: Performed By: #### C BC ####[place] Dekfggqavd86[address] [place], [place] [address]Dr. Chrissy Frazier IG % 0.4 % Normal 0.0-0.5 The [place] Comment on above: Performed By: #### C BC ####[place] Dhftewrlat[address] [place], [place] [address]Dr. Chrissy Frazier LYMPH # 2.0 103/ul Normal 1.2-3.8 The [facility] Comment on above: Performed By: #### C BC ####[place] Uqgcjgsmch[address] [place], [place] [address]Dr. Chrissy Frazier Lymphocytes/100 WBC (Bld) 12.2 % Critically low 20.5-60.0 [facility] Comment on above: Performed By: #### C BC ####[place] Yexnvawinw[address] [place], [place] [address]Dr. Chrissy Frazier MANUAL DIFF REQ NO Normal The [facility] Comment on above: Performed By: #### C BC ####[place] Jkujwosyla22[address] [place], [place] [address]Dr. Chrissy Frazier MCH (RBC) [Entitic mass] 28.3 pg Normal 25.9-34.0 The [facility] Comment on above: Performed By: #### C BC ####[place] Illqfzfvnc[address] [place], [place] [address]Dr. Chrissy Frazier MCHC (RBC) [Mass/Vol] 34.1 g/dL Normal 29.9-35.2 The [facility] Comment on above: Performed By: #### C BC ####[place] Igbwfkagmb5342 [place] [phone]. Chrissy Frazier MCV (RBC) [Entitic vol] 82.9 fL Normal 80.0-94.0 The [facility] Comment on above: Performed By: #### C BC ####[place] Xmhggemtgm5766 [place] [id number]. Chrissy Frazier MONO # 0.3 103/ul Normal 0.3-0.8 The [facility] Comment on above: Performed By: #### C BC ####[place] Biajrbopkc1302 [place] [phone]. Chrissy Frazier Monocytes/100 WBC (Bld) 2.0 % Normal 1.7-12.0 The [facility] Comment on above: Performed By: #### C BC ####[place] Clhapaagrn9710 [place] [phone]. Chrissy Frazier NEUT # 14.0 103/ul Critically high 1.4-6.[address] [facility] Comment on above: Performed By: #### C BC ####[place] Ypmgkcripq3903 [place] [phone]. Chrissy Frazier Neutrophils/100 WBC (Bld) 85.1 % Critically high 43.0-75.0 The [facility] Comment on above: Performed By: #### C BC ####[place] Yfhfldqemz0363 [place] [phone]. Chrissy Frazier Platelet mean volume (Bld) [Entitic vol] 10.6 fL Normal 9.5-13.5 The [facility] Comment on above: Performed By: #### C BC ####[place] Dnfuvtuhlq6439 [place] [id number]. Chrissy Frazier PLT 411 103/ul Normal 150-450 The [facility] Comment on above: Performed By: #### C BC ####[place] Ovemvdfkzx0470 [place] [id number]. Chrissy Freddie RBC 5.45 106/ul Normal 4.70-6.10 The [facility] Comment on above: Performed By: #### C BC ####[place] Pzkmddprhe9655 [place] [id number]. Chrissy Frazier WBC 16.5 103/ul Critically high 4.0-11.[address] [facility] Comment on above: Performed By: #### C BC ####[place] Nsmglxvczy07[address] [place] [address]Dr. Chrissy Frazier LIPASEon 10-22-2022 Lipase [Catalytic activity/Vol] 57.0 U/L Critically low 73.0-393.0 [facility] Comment on above: Performed By: #### L IPA, CMP, TERRENCE ####[place] Hbtiowuxiv[address] [place] [address]Dr. Chrissy Frazier PROF 14(COMP METB)on 022 Albumin [Mass/Vol] 4.2 g/dL Normal 3.4-5.0 [facility] Comment on above: Performed By: #### L IPA, CMP, TERRENCE ####[place] Jssuahqmeb2727 [place] [address]Dr. Chrissy Frazier Albumin/Globulin [Mass ratio] 1.0 {ratio} Normal [facility] Comment on above: Performed By: #### L IPA, CMP, TERRENCE ####[place] [address]wrlqtcf[address] [place], [place] [address]Dr. Chrissy Frazier ALP [Catalytic activity/Vol] 92 U/L Normal 46-116 The [facility] Comment on above: Performed By: #### L IPA, CMP, TERRENCE ####[place] Jjinjixajj4498 [place] [address]Dr. Chrissy Frazier ALT [Catalytic activity/Vol] 26 U/L Normal 16-63 The [facility] Comment on above: Performed By: #### L IPA, CMP, TERRENCE ####[place] Urjpkhtvuw3668 [place] [address]Dr. Chrissy Frazier Anion gap [Moles/Vol] 19.5 mmol/L Normal [facility] Comment on above: Performed By: #### L IPA, CMP, TERRENCE ####[place] Smkjkpqwoe6452 [place] [address]Dr. Chrissy Frazier AST [Catalytic activity/Vol] 19 U/L Normal 15-37 [facility] Comment on above: Performed By: #### L IPA, CMP, TERRENCE ####[place] Fbcoervxdx1129 [place] [address]Dr. Chrissy Frazier Bilirubin [Mass/Vol] 0.7 mg/dL Normal 0.2-1.0 [facility] Comment on above: Performed By: #### L IPA CMP, TERRENCE ####[place] [address]cythwuwz[address] [place], [place] [address]Dr. Chrissy Frazier Calcium [Mass/Vol] 9.6 mg/dL Normal 8.5-10.1 [facility] Comment on above: Performed By: #### L IPA CMP, TERRENCE ####[place] [address]vtyjztv[address] [place], [place] [address]Dr. Chrissy Frazier Chloride [Moles/Vol] 102 mmol/L Normal 98-107 The [facility] Comment on above: Performed By: #### L IPA CMP, TERRENCE ####[facility] Eryebfjxlo[address] [place], [place] [address]Dr. Chrissy Frazier CO2 [Moles/Vol] 19.1 mmol/L Critically low 21.0-32.0 [facility] Comment on above: Performed By: #### L IPA CMP, TERRENCE ####[facility] Hrwbtcetwk[address] [place], [place] [address]Dr. Chrissy Frazier Creatinine [Mass/Vol] 1.47 mg/dL Critically high 0.70-1.30 [facility] Comment on above: Performed By: #### L IPA, CMP, TERRENCE ####[facility] Tfkhqahivz[address] [place], [place] [address]Dr. Chrissy Frazier EGFR-AF HAITIAN >60 Normal >=[address] [facility] Comment on above: Performed By: #### L IPA, CMP, TERRENCE ####[facility] Srqgivfjhr[address] [place], [place] [address]Dr. Chrissy Frazier EGFR-NON AF HAITIAN 56 mL/min/1.73m2 Critically low >=60 [facility] Comment on above: Performed By: #### L IPA, CMP, TERRENCE ####[facility] [address]os[address]el[address] [place] [address]Dr. Chrissy Frazier Globulin (S) [Mass/Vol] 4.3 g/dL Normal [facility] Comment on above: Performed By: #### L IPA, CMP, TERRENCE ####[facility] Nosyjeeipd4[address] [place] [address]Dr. Chrissy Frazier Glucose [Mass/Vol] 189 mg/dL Critically high 74-106 [facility] Comment on above: Performed By: #### L IPA, CMP, TERRENCE ####[facility] Injgvpelxi70[address] [place] [address]Dr. Chrissy Frazier Potassium [Moles/Vol] 4.6 mmol/L Normal 3.5-5.1 [facility] Comment on above: Performed By: #### L IPA, CMP, TERRENCE ####[facility] Qzlhcnbcqm[address] [place] [address]Dr. Chrissy Frazier Protein [Mass/Vol] 8.5 g/dL Critically high 6.4-8.2 [facility] Comment on above: Performed By: #### L IPA, CMP, TERRENCE ####[facility] Zdwzzshnxw[address] [place], [place] [address]Dr. Chrissy Frazier Sodium [Moles/Vol] 136 mmol/L Normal 136-145 [facility] Comment on above: Performed By: #### L IPA, CMP, TERRENCE ####[facility] Keesjmmgfr[address] [place], [place] [address]Dr. Chrissy Frazier Urea nitrogen [Mass/Vol] 16.0 mg/dL Normal 7.0-18.0 [facility] Comment on above: Performed By: #### L IPA, CMP, TERRENCE ####[facility] Jeoarwkcmm24[address] [place] [address]Dr. Chrissy Frazier Urea nitrogen/Creatinine [Mass ratio] 10.9 mg/mg Normal [facility] Comment on above: Performed By: #### L IPA, CMP, TERRENCE ####[facility] Ouiofsvocl8[address] [place] [address]Dr. Chrissy Frazier AMYLASEon 09-03-2022 Amylase [Catalytic activity/Vol] 25 U/L Normal 25-115 [facility] Comment on above: Performed By: #### L IPA, TERRENCE, CMP ####[facility] Vfaljjcrur0220 [place] [address]Dr. Chrissy Frazier CBC AUTO DIFFon 09-03-2022 BASO # 0.0 103/ul Normal 0.0-0.1 [facility] Comment on above: Performed By: #### C BC ####[facility] Sxnzluadov[address] [place], [place] [address]Dr. Chrissy Freddie Basophils/100 WBC (Bld) 0.1 % Critically low 0.2-2.0 [facility] Comment on above: Performed By: #### C BC ####[facility] Wqmnvfdezk[address] [place], [place] [address]Dr. Chrissy Frazier EO # 0.0 103/ul Normal 0.0-0.7 [facility] Comment on above: Performed By: #### C BC ####[facility] Pdrkszjfti278[address] [place], [place] [address]Dr. Chrissy Freddie Eosinophils/100 WBC (Bld) 0.1 % Critically low 0.9-7.0 [facility] Comment on above: Performed By: #### C BC ####[facility] Oosllbcuzb[address] [place], [place] [address]Dr. Chrissy Frazier Erythrocyte distribution width (RBC) [Ratio] 14.0 % Normal 11.0-15.0 [facility] Comment on above: Performed By: #### C BC ####[facility] Dkduhegayp7[address] [place], [place] [address]Dr. Chrissy Frazier Hematocrit (Bld) [Volume fraction] 42.5 % Normal 42.0-54.0 [facility] Comment on above: Performed By: #### C BC ####[facility] Wjnoqwmqjr512[address] [place], [place] [address]Dr. Chrissy Frazier Hemoglobin (Bld) [Mass/Vol] 14.1 g/dL Normal 14.0-18.0 [facility] Comment on above: Performed By: #### C BC ####[facility] Iecaccbrnt22[address] [place] [address]Dr. Chrissy Frazier IG # 0.06 10e3/ul Critically high 0.00-0.03 [facility] Comment on above: Performed By: #### C BC ####[facility] Fvcocfyvah354[address] [place], [place] [address]Dr. Chrissy Freddie IG % 0.4 % Normal 0.0-0.5 [facility] Comment on above: Performed By: #### C BC ####[facility] Ctnqimwxbh[address] [place], [place] [address]DrNancy Tishrowan Frazier LYMPH # 2.5 103/ul Normal 1.2-3.8 [facility] Comment on above: Performed By: #### C BC ####[facility] Vkzpujkuwz[address] [place], [place] [address]DrNancy Tishrowan Frazier Lymphocytes/100 WBC (Bld) 16.3 % Critically low 20.5-60.0 [facility] Comment on above: Performed By: #### C BC ####[facility] Ypebshebrx[address] [place], [place] [address]DrNancy Tishrowan Frazier MANUAL DIFF REQ NO Normal [facility] Comment on above: Performed By: #### C BC ####[facility] Bosumvtdge244[address] [place], [place] [address]DrNancy Chrissy Frazier MCH (RBC) [Entitic mass] 28.1 pg Normal 25.9-34.0 [facility] Comment on above: Performed By: #### C BC ####[facility] Gppndifkof[address] [place], [place] [address]DrNancy Chrissy Freddie MCHC (RBC) [Mass/Vol] 33.2 g/dL Normal 29.9-35.2 [facility] Comment on above: Performed By: #### C BC ####[facility] Qlzgifazmr272[address] [place], [place] [address]DrNancy Chrissy Freddie MCV (RBC) [Entitic vol] 84.8 fL Normal 80.0-94.0 [facility] Comment on above: Performed By: #### C BC ####[facility] Dzatjumvmr[address] [place], [place] [address]Dr. Chrissy Frazier MONO # 1.1 103/ul Critically high 0.3-0.8 The [facility] Comment on above: Performed By: #### C BC ####[facility] Rsngurquxt2872 [place] [address]Dr. Chrissy Frazier Monocytes/100 WBC (Bld) 7.4 % Normal 1.7-12.0 [facility] Comment on above: Performed By: #### C BC ####[facility] Pumktkdsce7553 [place] [address]Dr. Chrissy Frazier NEUT # 11.5 103/ul Critically high 1.4-6.[address] [facility] Comment on above: Performed By: #### C BC ####[facility] Lsisuehnhn7713 [place] [address]Dr. Chrissy Frazier Neutrophils/100 WBC (Bld) 75.7 % Critically high 43.0-75.0 [facility] Comment on above: Performed By: #### C BC ####[facility] Qkwicurjll68[address] [place], [place] [address]Dr. Chrissy Frazier Platelet mean volume (Bld) [Entitic vol] 10.6 fL Normal 9.5-13.5 [facility] Comment on above: Performed By: #### C BC ####[facility] Mzpkrnerzk54[address] [place], [place] [address]Dr. Chrissy Frazier PLT 310 103/ul Normal 150-450 [facility] Comment on above: Performed By: #### C BC ####[facility] Xxopvxbvxd703[address] [place], [place] [address]Dr. Chrissy Frazier RBC 5.01 106/ul Normal 4.70-6.10 [facility] Comment on above: Performed By: #### C BC ####[facility] Ndrvfrtivj112[address] [place], [place] [address]Dr. Chrissy Frazier WBC 15.2 103/ul Critically high 4.0-11.[address] [facility] Comment on above: Performed By: #### C BC ####[facility] Ruwhkjtjmd[address] [place], [place] [address]Dr. Chrissy Frazier LIPASEon 09-03-2022 Lipase [Catalytic activity/Vol] 46.0 U/L Critically low 73.0-393.0 [facility] Comment on above: Performed By: #### L TERRENCE VICTORIA, CMP ####[facility] Wjnvrafcxf9[address] [place] [address]Dr. Chrissy Frazier PROF 14(COMP METB)on 022 Albumin [Mass/Vol] 3.7 g/dL Normal 3.4-5.0 [facility] Comment on above: Performed By: #### L TERRENCE VICTORIA, CMP ####[facility] Jesnfuiwgm[address] [place], [place] [address]Dr. Chrissy Frazier Albumin/Globulin [Mass ratio] 1.0 {ratio} Normal [facility] Comment on above: Performed By: #### L TERRENCE VICTORIA, CMP ####[facility] Aslnugopgu[address] [place], [place] [address]Dr. Chrissy Frazier ALP [Catalytic activity/Vol] 65 U/L Normal 46-116 [facility] Comment on above: Performed By: #### L TERRENCE VICTORIA, CMP ####[facility] Msufjeijra[address] [place], [place] [address]Dr. Chrissy Frazier ALT [Catalytic activity/Vol] 42 U/L Normal 16-63 [facility] Comment on above: Performed By: #### L TERRENCE VICTORIA, CMP ####[facility] Krexuowuxl[address] [place], [place] [address]Dr. Chrissy Frazier Anion gap [Moles/Vol] 14.4 mmol/L Normal [facility] Comment on above: Performed By: #### L TERRENCE VICTORIA, CMP ####[facility] Drjqslfvpb4670 [place] [address]Dr. Chrissy Frazier AST [Catalytic activity/Vol] 16 U/L Normal 15-37 [facility] Comment on above: Performed By: #### L TERRENCE VICTORIA, CMP ####[facility] Zomrksawzt[address] [place], [place] [address]Dr. Chrissy Frazier Bilirubin [Mass/Vol] 0.4 mg/dL Normal 0.2-1.0 [facility] Comment on above: Performed By: #### L IPA TERRENCE, CMP ####[facility] Tsigrianaj1525 [place] [address]Dr. Chrissy Frazier Calcium [Mass/Vol] 8.7 mg/dL Normal 8.5-10.1 [facility] Comment on above: Performed By: #### L IPA TERRENCE, CMP ####[facility] Lncilklubr7644 [place] [address]Dr. Chrissy Frazier Chloride [Moles/Vol] 105 mmol/L Normal 98-107 [facility] Comment on above: Performed By: #### L IPA TERRENCE, CMP ####[facility] Zpygajovmq2075 [place] [address]Dr. Chrissy Frazier CO2 [Moles/Vol] 22.6 mmol/L Normal 21.0-32.[address] [facility] Comment on above: Performed By: #### L IPA TERRENCE, CMP ####[facility] Zlfjofwzlt[address] [place], [place] [address]Dr. Chrissy Frazier Creatinine [Mass/Vol] 1.11 mg/dL Normal 0.70-1.30 [facility] Comment on above: Performed By: #### L JULIEN TERRENCE, CMP ####[facility] Qtdrblbvam[address] [place], [place] [address]Dr. Chrissy Frazier EGFR-AF HAITIAN >60 Normal >=[address] [facility] Comment on above: Performed By: #### L IPA TERRENCE, CMP ####[facility] Wqqjzilstv[address] [place], [place] [address]Dr. Chrissy Frazier EGFR-NON AF HAITIAN >60 Normal >=60 [facility] Comment on above: Performed By: #### L IPA TERRENCE, CMP ####[facility] Buqbydzjlg3204 [place] [address]Dr. Chrissy Frazier Globulin (S) [Mass/Vol] 3.7 g/dL Normal [facility] Comment on above: Performed By: #### L IPA TERRENCE, CMP ####[facility] Nstxpzrwjj4532 [place] [address]Dr. Chrissy Frazier Glucose [Mass/Vol] 121 mg/dL Critically high 74-106 [facility] Comment on above: Performed By: #### L TERRENCE VICTORIA, CMP ####[facility] Iszctrligl1063 [place] [address]Dr. Chrissy Frazier Potassium [Moles/Vol] 4.0 mmol/L Normal 3.5-5.1 [facility] Comment on above: Performed By: #### L TERRENCE VICTORIA, CMP ####[facility] Flzelpxhbj40[address] [place], [place] [address]Dr. Chrissy Frazier Protein [Mass/Vol] 7.4 g/dL Normal 6.4-8.2 The [facility] Comment on above: Performed By: #### L TERRENCE VICTORIA, CMP ####[facility] Czsbbqhhij835[address] [place], [place] [address]Dr. Chrissy Frazier Sodium [Moles/Vol] 138 mmol/L Normal 136-145 [facility] Comment on above: Performed By: #### L JULIEN TERRENCE, CMP ####[facility] Xahrznoglz394[address] [place], [place] [address]Dr. Chrissy Frazier Urea nitrogen [Mass/Vol] 6.0 mg/dL Critically low 7.0-18.0 [facility] Comment on above: Performed By: #### L TERRENCE VICTORIA, CMP ####[facility] Zjvbnfzqjj025197 [address] [place], [place] [address]Dr. Chrissy Frazier Urea nitrogen/Creatinine [Mass ratio] 5.4 mg/mg Normal [facility] Comment on above: Performed By: #### L TERRENCE VICTORIA, CMP ####[facility] Jmqchitkux[address] [place], [place] [address]Dr. Chrissy Frazier AMYLASEon 09-02-2022 Amylase [Catalytic activity/Vol] 29 U/L Normal 25-115 [facility] Comment on above: Performed By: #### A MY CMP, LIPA ####[facility] Iupdtoxqyc99[address] [place], [place] [address]Dr. Chrissy Frazier CBC AUTO DIFFon 09-02-2022 BASO # 0.1 103/ul Normal 0.0-0.1 [facility] Comment on above: Performed By: #### C BC ####[facility] H[address]zlzrflo16[address] [place] [address]Dr. Chrissy Frazier Basophils/100 WBC (Bld) 0.4 % Normal 0.2-2.0 [facility] Comment on above: Performed By: #### C BC ####[facility] Ijxozpnnss[address] [place], [place] [address]Dr. Chrissy Frazier EO # 0.1 103/ul Normal 0.0-0.7 [facility] Comment on above: Performed By: #### C BC ####[facility] Khhrttzuug[address] [place], [place] [address]Dr. Chrissy Frazier Eosinophils/100 WBC (Bld) 0.7 % Critically low 0.9-7.0 [facility] Comment on above: Performed By: #### C BC ####[facility] Gplvxkfolu[address] [place], [place] [address]Dr. Chrissy Frazier Erythrocyte distribution width (RBC) [Ratio] 13.7 % Normal 11.0-15.0 [facility] Comment on above: Performed By: #### C BC ####[facility] Xwkckquoxt[address] [place], [place] [address]Dr. Chrissy Frazier Hematocrit (Bld) [Volume fraction] 48.3 % Normal 42.0-54.0 [facility] Comment on above: Performed By: #### C BC ####[facility] Wpirlfgehk[address] [place], [place] [address]Dr. Chrissy Frazier Hemoglobin (Bld) [Mass/Vol] 16.0 g/dL Normal 14.0-18.0 [facility] Comment on above: Performed By: #### C BC ####[facility] Dvchxqfrmo[address] [place], [place] [address]Dr. Chrissy Frazier IG # 0.09 10e3/ul Critically high 0.00-0.03 [facility] Comment on above: Performed By: #### C BC ####[facility] Rkydosylys64[address] [place], [place] [address]Dr. Chrissy Frazier IG % 0.5 % Normal 0.0-0.5 [facility] Comment on above: Performed By: #### C BC ####[facility] Pxzzzqpbrj4706 [place] [address]Dr. Chrissy Frazier LYMPH # 3.7 103/ul Normal 1.2-3.8 [facility] Comment on above: Performed By: #### C BC ####[facility] Tmorjdynil5[address] [place] [address]Dr. Chrissy Frazier Lymphocytes/100 WBC (Bld) 21.5 % Normal 20.5-60.0 [facility] Comment on above: Performed By: #### C BC ####[facility] Wxzvomhcsn0730 [place] [address]Dr. Chrissy Frazier MANUAL DIFF REQ NO Normal [facility] Comment on above: Performed By: #### C BC ####[facility] Kgqqmmzkhw9930 [place] [address]Dr. Chrissy Frazier MCH (RBC) [Entitic mass] 28.1 pg Normal 25.9-34.0 [facility] Comment on above: Performed By: #### C BC ####[facility] Jjmcttnppl4536 [place] [address]Dr. Chrissy Frazier MCHC (RBC) [Mass/Vol] 33.1 g/dL Normal 29.9-35.2 [facility] Comment on above: Performed By: #### C BC ####[facility] Mjtgdecgij6276 [place] [address]Dr. Chrissy Frazier MCV (RBC) [Entitic vol] 84.7 fL Normal 80.0-94.0 [facility] Comment on above: Performed By: #### C BC ####[facility] Zpbtbzmzrg4169 [place] [address]Dr. Chrissy Frazier MONO # 0.7 103/ul Normal 0.3-0.8 [facility] Comment on above: Performed By: #### C BC ####[facility] Hzkjxmynkt9626 [place] [address]Dr. Chrissy Frazier Monocytes/100 WBC (Bld) 4.2 % Normal 1.7-12.0 [facility] Comment on above: Performed By: #### C BC ####[facility] Jxrugokeqi7263 [place] [address]Dr. Chrissy Frazier NEUT # 12.4 103/ul Critically high 1.4-6.[address] [facility] Comment on above: Performed By: #### C BC ####[facility] Fguyejczmc2451 [place] [address]Dr. Chrissy Frazier Neutrophils/100 WBC (Bld) 72.7 % Normal 43.0-75.0 [facility] Comment on above: Performed By: #### C BC ####[facility] Iijyjzpwmu4800 [place] [phone]. Chrissy Frazier Platelet mean volume (Bld) [Entitic vol] 10.9 fL Normal 9.5-13.5 [facility] Comment on above: Performed By: #### C BC ####[facility] Wnwlztjejk1191 [place] [address]Dr. Chrissy Frazier PLT 386 103/ul Normal 150-450 [facility] Comment on above: Performed By: #### C BC ####[facility] Ninhktdeko4367 [place] [address]Dr. Chrissy Frazier RBC 5.70 106/ul Normal 4.70-6.10 [facility] Comment on above: Performed By: #### C BC ####[facility] Mmsesmbgyh0630 [place] [id number]. Chrissy Frazier WBC 17.0 103/ul Critically high 4.0-11.[address] [facility] Comment on above: Performed By: #### C BC ####[facility] [address]lnw[address] [place], [place] [address]Dr. Chrissy Frazier Covid-19 PCR (CVDTB)on 08-21 SARS-CoV-2 (COVID-19) RNA RHIANNON+probe Ql (Unsp spec) Not detected Normal NOT DETECTED [facility] Comment on above: Result Comment: When diagnostic [...] for this test is supported by the Filter [employer] Operator of Health and Human Service's declaration that [...] be used). Performed By: #### C VDTBH ####[facility] Oqbvgoacsz10[address] [place], [place] [address]Dr. Chrissy Frazier LACTATE/LACTIC ACIDon 2021 Lactate [Moles/Vol] 7.1 mmol/L Critically high 0.4-1.9 [facility] Comment on above: Performed By: #### L ACT ####[facility] Uxhxtavgzj23[address] [place], [place] [address]Dr. Chrissy Frazier Lactate [Moles/Vol] 8.6 mmol/L Critically high 0.4-1.9 [facility] Comment on above: Performed By: #### L ACT ####[facility] Hdnytzvook[address] [place], [place] [address]Dr. Chrissy Frazier LIPASEon 09-02-2022 Lipase [Catalytic activity/Vol] 60.0 U/L Critically low 73.0-393.0 [facility] Comment on above: Performed By: #### A MY, CMP, LIPA ####[facility] Sgeowyrnoy[address] [place], [place] [address]Dr. Chrissy Frazier POINT OF CARE GLUCOSEon 08-21 Glucose [Mass/Vol] 140 mg/dL Critically high 74-106 [facility] Comment on above: Performed By: #### P OCGLUC ####[facility] Sfigtmkpkn[address] [place], [place] [address]Dr. Chrissy Frazier PROF 14(COMP METB)on 022 Albumin [Mass/Vol] 4.3 g/dL Normal 3.4-5.0 [facility] Comment on above: Performed By: #### A MY, CMP, LIPA ####[facility] Kmoffwopyv4159 [place] [address]Dr. Chrissy Frazier Albumin/Globulin [Mass ratio] 1.0 {ratio} Normal [facility] Comment on above: Performed By: #### A MY, CMP, LIPA ####[facility] Esyacebfei7117 [place] [address]Dr. Chrissy Frazier ALP [Catalytic activity/Vol] 82 U/L Normal 46-116 [facility] Comment on above: Performed By: #### A MY, CMP, LIPA ####[facility] Bsgycnqwir034[address] [place], [place] [address]Dr. Chrissy Frazier ALT [Catalytic activity/Vol] 48 U/L Normal 16-63 [facility] Comment on above: Performed By: #### A MY, CMP, LIPA ####[facility] Yqmmgfjlsp217[address] [place], [place] [address]Dr. Chrissy Frazier Anion gap [Moles/Vol] 25.3 mmol/L Normal [facility] Comment on above: Performed By: #### A MY, CMP, LIPA ####[facility] Vfhhqmutgu213[address] [place], [place] [address]Dr. Chrissy Frazier AST [Catalytic activity/Vol] 33 U/L Normal 15-37 [facility] Comment on above: Performed By: #### A MY, CMP, LIPA ####[facility] Tmplosnxli54[address] [place], [place] [address]Dr. Chrissy Frazier Bilirubin [Mass/Vol] 0.7 mg/dL Normal 0.2-1.0 [facility] Comment on above: Performed By: #### A MY, CMP, LIPA ####[facility] Kfsmqhnlkf0825[address] [place], [place] [address]Dr. Chrissy Frazier Calcium [Mass/Vol] 9.5 mg/dL Normal 8.5-10.1 [facility] Comment on above: Performed By: #### A MY, CMP, LIPA ####[facility] Nkubyhtyba5302 [place] [address]Dr. Chrissy Frazier Chloride [Moles/Vol] 100 mmol/L Normal 98-107 [facility] Comment on above: Performed By: #### A MY, CMP, LIPA ####[facility] Nlywjulqct2020 [place] [address]Dr. Chrissy Frazier CO2 [Moles/Vol] 14.2 mmol/L Critically low 21.0-32.0 [facility] Comment on above: Performed By: #### A MY, CMP, LIPA ####[facility] Tmrcrjkbia2085 [place] [address]Dr. Chrissy Frazier Creatinine [Mass/Vol] 1.70 mg/dL Critically high 0.70-1.30 [facility] Comment on above: Performed By: #### A MY, CMP, LIPA ####[facility] Adzrtcqfrg5[address] [place], [place] [address]Dr. Chrissy Frazier EGFR-AF HAITIAN 57 mL/min/1.73m2 Critically low >=60 [facility] Comment on above: Performed By: #### A MY, CMP, LIPA ####[facility] Dpspwjdxqv107[address] [place], [place] [address]Dr. Chrissy Frazier EGFR-NON AF HAITIAN 47 mL/min/1.73m2 Critically low >=60 [facility] Comment on above: Performed By: #### A MY, CMP, LIPA ####[facility] Qujpchobjw17[address] [place], [place] [address]Dr. Chrissy Frazier Globulin (S) [Mass/Vol] 4.2 g/dL Normal [facility] Comment on above: Performed By: #### A MY, CMP, LIPA ####[facility] Jcknfdxtip187[address] [place], [place] [address]Dr. Chrissy Frazier Glucose [Mass/Vol] 212 mg/dL Critically high 74-106 [facility] Comment on above: Performed By: #### A MY, CMP, LIPA ####[facility] Wxlkeyixkh85[address] [place], [place] [address]Dr. Chrissy Frazier Potassium [Moles/Vol] 3.5 mmol/L Normal 3.5-5.1 [facility] Comment on above: Performed By: #### A MY, CMP, LIPA ####[facility] Ooqotdcxgp0660 [place] [address]Dr. Chrissy Frazier Protein [Mass/Vol] 8.5 g/dL Critically high 6.4-8.2 [facility] Comment on above: Performed By: #### A MY, CMP, LIPA ####[facility] Twvyqmntik54[address] [place], [place] [address]Dr. Chrissy Frazier Sodium [Moles/Vol] 136 mmol/L Normal 136-145 [facility] Comment on above: Performed By: #### A MY, CMP, LIPA ####[facility] Uaetdurhbp[address] [place], [place] [address]Dr. Chrissy Frazier Urea nitrogen [Mass/Vol] 9.0 mg/dL Normal 7.0-18.0 [facility] Comment on above: Performed By: #### A MY, CMP, LIPA ####[facility] Nueodbdqrk07[address] [place], [place] [address]Dr. Chrissy Frazier Urea nitrogen/Creatinine [Mass ratio] 5.3 mg/mg Normal [facility] Comment on above: Performed By: #### A MY, CMP, LIPA ####[facility] Qagzyqebsq[address] [place], [place] [address]Dr. Chrissy Frazier AMYLASEon 07-07-2022 Amylase [Catalytic activity/Vol] 33 U/L Normal 25-115 [facility] Comment on above: Performed By: #### C MP, TERRENCE, BNP, LIPA ####[facility] Mrtbjdohyu30[address] [place], [place] [address]Dr. Chrissy Frazier BNPon 07-07-2022 Natriuretic peptide B (Bld) [Mass/Vol] 29.0 pg/mL Normal <=450.0 [facility] Comment on above: Performed By: #### C MP, TERRENCE, BNP, LIPA ####[facility] Fxjaplrdtr[address] [place], [place] [address]Dr. Chrissy Frazier CBC AUTO DIFFon 07-07-2022 BASO # 0.0 103/ul Normal 0.0-0.1 [facility] Comment on above: Performed By: #### C BC ####[facility] Uygomckoqa0213 [place] [address]Dr. Chrissy Frazier Basophils/100 WBC (Bld) 0.4 % Normal 0.2-2.0 [facility] Comment on above: Performed By: #### C BC ####[facility] Rhklczumzd[address] [place], [place] [address]Dr. Chrissy Frazier EO # 0.3 103/ul Normal 0.0-0.7 [facility] Comment on above: Performed By: #### C BC ####[facility] Xkrbcjhaij[address] [place], [place] [address]Dr. Chrissy Frazier Eosinophils/100 WBC (Bld) 3.0 % Normal 0.9-7.0 [facility] Comment on above: Performed By: #### C BC ####[facility] Qpncdzamak[address] [place], [place] [address]Dr. Chrissy Frazier Erythrocyte distribution width (RBC) [Ratio] 14.0 % Normal 11.0-15.0 [facility] Comment on above: Performed By: #### C BC ####[facility] Ojhcyjuqdh[address] [place], [place] [address]Dr. Tishrowan Frazier Hematocrit (Bld) [Volume fraction] 42.8 % Normal 42.0-54.0 [facility] Comment on above: Performed By: #### C BC ####[facility] Yfcymbzpin[address] [place], [place] [address]Dr. Chrissy Frazier Hemoglobin (Bld) [Mass/Vol] 14.3 g/dL Normal 14.0-18.0 [facility] Comment on above: Result Comment: IV F LUIDS RUNNING Performed By: #### C BC ####[facility] [address]rojybkk[address] [place] [id number]. Chrissy Frazier IG # 0.05 10e3/ul Critically high 0.00-0.03 [facility] Comment on above: Performed By: #### C BC ####[facility] Ubnmtkswya6[address] [place] [id number]. Chrissy Frazier IG % 0.5 % Normal 0.0-0.5 The [facility] Comment on above: Performed By: #### C BC ####[facility] Ufcgnjwpyr[address] [place] [address]Dr. Chrissy Frazier LYMPH # 2.4 103/ul Normal 1.2-3.8 The [facility] Comment on above: Performed By: #### C BC ####[facility] Ximzdmioip4188 [place] [address]Dr. Chrissy Frazier Lymphocytes/100 WBC (Bld) 25.5 % Normal 20.5-60.0 The [facility] Comment on above: Performed By: #### C BC ####[facility] Chrpeiohph[address] [place] [address]Dr. Chrissy Frazier MANUAL DIFF REQ NO Normal The [facility] Comment on above: Performed By: #### C BC ####[facility] Jbjxkfznrn8093 [place] [address]Dr. Tishrowan Frazier MCH (RBC) [Entitic mass] 28.5 pg Normal 25.9-34.0 The [facility] Comment on above: Performed By: #### C BC ####[facility] Creadqiiqp0773 [place] [address]Dr. Chrissy Freddie MCHC (RBC) [Mass/Vol] 33.4 g/dL Normal 29.9-35.2 The [facility] Comment on above: Performed By: #### C BC ####[facility] Dhmsjydirq94[address] [place] [address]Dr. Chrissy Frazier MCV (RBC) [Entitic vol] 85.3 fL Normal 80.0-94.0 The [facility] Comment on above: Performed By: #### C BC ####[facility] Cvxwlgtygs80[address] [place] [address]Dr. Chrissy Frazier MONO # 0.7 103/ul Normal 0.3-0.8 The [facility] Comment on above: Performed By: #### C BC ####[facility] Qcwhiobcro[address] [place], [place] [address]Dr. Chrissy Frazier Monocytes/100 WBC (Bld) 7.8 % Normal 1.7-12.0 The [facility] Comment on above: Performed By: #### C BC ####[facility] Kyprqvnzxd6364 [place] [id number]. Chrissy Frazier NEUT # 5.8 103/ul Normal 1.4-6.5 The [facility] Comment on above: Performed By: #### C BC ####[facility] Swrfueexgx7762 [place] [address]Dr. Chrissy Frazier Neutrophils/100 WBC (Bld) 62.8 % Normal 43.0-75.0 The [facility] Comment on above: Performed By: #### C BC ####[facility] Rfcfetsqov54[address] [place], [place] [address]Dr. Chrissy Frazier Platelet mean volume (Bld) [Entitic vol] 10.8 fL Normal 9.5-13.5 The [facility] Comment on above: Performed By: #### C BC ####[facility] Urqhzujqhy[address] [place], [place] [address]Dr. Chrissy Frazier PLT 310 103/ul Normal 150-450 The [facility] Comment on above: Performed By: #### C BC ####[facility] Oqvaxipklh[address] [place], [place] [address]Dr. Chrissy Frazier RBC 5.02 106/ul Normal 4.70-6.10 The [facility] Comment on above: Performed By: #### C BC ####[facility] Tqmoozlglq[address] [place], [place] [id number]. Chrissy Frazier WBC 9.3 103/ul Normal 4.0-11.0 The [facility] Comment on above: Performed By: #### C BC ####[facility] Ncbcaoaztl[address] [place], [place] [id number]. Chrissy Frazier CULTURE URINEon 07-07-2022 CULTURE URINE Culture Observations : NO GROWTH. Normal The [facility] Comment on above: Performed By: #### U RCX ####[facility] Ukbybambdy[address] [place], [place] [address]Dr. Chrissy Frazier DRUG SCREEN RAPID (URINE)on 07-07-2022 AMP Negative Normal NEGATIVE The [facility] Comment on above: Performed By: #### D RUGRPD ####[facility] Mpwxksauqw32[address] [place] [address]Dr. Chrissy Frazier BAR Negative Normal NEGATIVE The [facility] Comment on above: Performed By: #### D RUGRPD ####[facility] Yltgquoscb2261 [place] [address]Dr. Chrissy Frazier BUP Negative Normal NEGATIVE The [facility] Comment on above: Performed By: #### D RUGRPD ####[facility] Wlufeacrtj[address] [place], [place] [address]Dr. Chrissy Frazier BZO Positive Abnormal NEGATIVE The [facility] Comment on above: Performed By: #### D RUGRPD ####[facility] Fpwojkqrwz7[address] [place], [place] [address]Dr. Chrissy Frazier LAUREN Negative Normal NEGATIVE The [facility] Comment on above: Performed By: #### D RUGRPD ####[facility] Wzpjqpvxir60[address] [place], [place] [address]Dr. Chrissy Frazier CUT-OFFS SEE BELOW Normal The [facility] Comment on above: Result Comment: AMP (Amphetamine): 500ng/mL, BAR (Barbituates): 200 ng/mL, BZO (Benzodiazepines): 150 ng/mL, BUP (Buprenorphine): 10 ng/mL, LAUREN (Cocaine): 150 ng/mL, mAMP (Methamphetamine): 500 ng/mL, MTD (Methadone): 200 ng/mL, OPI (Opiates): 100 ng/mL, OXY (Oxycodone): 100 ng/mL, PCP (Phencyclidine): 25 ng/mL, PPX (Propoxyphene): 300 ng/mL, THC (Cannabinoids): 50 ng/mL, TCA (Trycyclic Antidepressants): 300 ng/mL Performed By: #### D RUGRPD ####[facility] Vxwsrbprym854[address] [place], [place] [address]Dr. Chrissy Frazier DRUG CUT HEADER DRUG CLASS TEST SYSTEM CUT-OFF CONCENTRATIONS ARE FOLLOWS: Normal The [facility] Comment on above: Performed By: #### D RUGRPD ####[facility] Kmffvbmapw0467 [place] [id number]. Chrissy Frazier mAMP Negative Normal NEGATIVE The [facility] Comment on above: Performed By: #### D RUGRPD ####[facility] Epoagfzprh0902 [place] [id number]. Chrissy Frazier MTD Negative Normal NEGATIVE The [facility] Comment on above: Performed By: #### D RUGRPD ####[facility] Gryzotbcam05[address] [place] [address]Dr. Chrissy Frazier OPI Negative Normal NEGATIVE The [facility] Comment on above: Performed By: #### D RUGRPD ####[facility] Yiupwrwhhx009[address] [place], [place] [address]Dr. Chrissy Frazier OXY Negative Normal NEGATIVE The [facility] Comment on above: Performed By: #### D RUGRPD ####[facility] Xurrnxytcq99[address] [place], [place] [address]Dr. Chrissy Frazier PCP Negative Normal NEGATIVE The [facility] Comment on above: Performed By: #### D RUGRPD ####[facility] Zwlygphity[address] [place], [place] [address]Dr. Chrissy Frazier PPX Negative Normal NEGATIVE The [facility] Comment on above: Performed By: #### D RUGRPD ####[facility] Cuvndctuax65[address] [place], [place] [address]Dr. Chrissy Frazier TCA Positive Abnormal NEGATIVE The [facility] Comment on above: Performed By: #### D RUGRPD ####[facility] Acxoxfsgnj[address] [place], [place] [address]Dr. Chrissy Frazier THC Positive Abnormal NEGATIVE The [facility] Comment on above: Performed By: #### D RUGRPD ####[facility] Hsybeycuei[address] [place], [place] [address]Dr. Chrissy Frazier LIPASEon 07-07-2022 Lipase [Catalytic activity/Vol] 118.0 U/L Normal 73.0-393.0 The [facility] Comment on above: Performed By: #### L IPA ####[facility] Faerizzusn8[address] [place], [place] [address]Dr. Chrissy Frazier Lipase [Catalytic activity/Vol] 114.0 U/L Normal 73.0-393.0 [facility] Comment on above: Performed By: #### C MP, TERRENCE, BNP, LIPA ####[facility] Azqwgzcmdc14[address] [place] [address]Dr. Chrissy Frazier PROF 14(COMP METB)on 022 Albumin [Mass/Vol] 3.4 g/dL Normal 3.4-5.0 [facility] Comment on above: Performed By: #### C MP, TERRENCE, BNP, LIPA ####[facility] Wounzmcscd65[address] [place] [address]Dr. Chrissy Frazier Albumin/Globulin [Mass ratio] 1.1 {ratio} Normal [facility] Comment on above: Performed By: #### C MP, TERRENCE, BNP, LIPA ####[facility] Wkyjywdyli36[address] [place] [address]Dr. Chrissy Frazier ALP [Catalytic activity/Vol] 68 U/L Normal 46-116 [facility] Comment on above: Performed By: #### C MP, TERRENCE, BNP, LIPA ####[facility] Wojvmgooqt3657 [place] [address]Dr. Chrissy Frazier ALT [Catalytic activity/Vol] 93 U/L Critically high 16-63 [facility] Comment on above: Performed By: #### C MP, TERRENCE, BNP, LIPA ####[facility] Mftblyusug8841 [place] [address]Dr. Chrissy Frazier Anion gap [Moles/Vol] 14.4 mmol/L Normal [facility] Comment on above: Performed By: #### C MP, TERRENCE, BNP, LIPA ####[facility] Iwjuvlgbou7303 [place] [address]Dr. Chrissy Frazier AST [Catalytic activity/Vol] 33 U/L Normal 15-37 [facility] Comment on above: Performed By: #### C MP, TERRENCE, BNP, LIPA ####[facility] Saxymxvfyh7142 [place] [address]Dr. Chrissy Frazier Bilirubin [Mass/Vol] 0.9 mg/dL Normal 0.2-1.0 The [facility] Comment on above: Performed By: #### C MP, TERRENCE, BNP, LIPA ####[facility] Zbkrfgazxs1154 [place] [address]Dr. Chrissy Frazier Calcium [Mass/Vol] 8.2 mg/dL Critically low 8.5-10.1 [facility] e [facility] Comment on above: Performed By: #### C MP, TERRENCE, BNP, LIPA ####[facility] Jwqjqvgggu6674 [place] [address]Dr. Chrissy Frazier Chloride [Moles/Vol] 103 mmol/L Normal 98-107 The [facility] Comment on above: Performed By: #### C MP, TERRENCE, BNP, LIPA ####[facility] Kxvxkripnb0958 [place] [address]Dr. Chrissy Frazier CO2 [Moles/Vol] 22.9 mmol/L Normal 21.0-32.[address] [facility] Comment on above: Performed By: #### C MP, TERRENCE, BNP, LIPA ####[facility] Vlmryjdfwh2439 [place] [address]Dr. Chrissy Frazier Creatinine [Mass/Vol] 1.07 mg/dL Normal 0.70-1.30 The [facility] Comment on above: Performed By: #### C MP, TERRENCE, BNP, LIPA ####[facility] Jmyyaniuyk16[address] [place] [address]Dr. Chrissy Frazier EGFR-AF HAITIAN >60 Normal >=[address] [facility] Comment on above: Performed By: #### C MP, TERRENCE, BNP, LIPA ####[facility] Derlexupjm7114 [place] [address]Dr. Chrissy Frazier EGFR-NON AF HAITIAN >60 Normal >=60 The [facility] Comment on above: Performed By: #### C MP, TERRENCE, BNP, LIPA ####[facility] Xkbcbabsko9760 [place] [address]Dr. Chrissy Frazier Globulin (S) [Mass/Vol] 3.2 g/dL Normal The [facility] Comment on above: Performed By: #### C MP, TERRENCE, BNP, LIPA ####[facility] Fzbcibyuwb6460 [place] [address]Dr. Chrissy Frazier Glucose [Mass/Vol] 96 mg/dL Normal 74-106 The [facility] Comment on above: Performed By: #### C MP, TERRENCE, BNP, LIPA ####[facility] Xioztwiomi0946 [place] [address]Dr. Chrissy Frazier Potassium [Moles/Vol] 3.3 mmol/L Critically low 3.5-5.1 The [facility] Comment on above: Performed By: #### C MP, TERRENCE, BNP, LIPA ####[facility] Dftpfdkuwk1238 [place] [address]Dr. Chrissy Frazier Protein [Mass/Vol] 6.6 g/dL Normal 6.4-8.2 The [facility] Comment on above: Performed By: #### C MP, TERRENCE, BNP, LIPA ####[facility] Qfkijjvuaf[address] [place], [place] [address]Dr. Chrissy Frazier Sodium [Moles/Vol] 137 mmol/L Normal 136-145 The [facility] Comment on above: Performed By: #### C MP, TERRENCE, BNP, LIPA ####[facility] Suwqjgncwg235[address] [place], [place] [address]Dr. Chrissy Frazier Urea nitrogen [Mass/Vol] 13.0 mg/dL Normal 7.0-18.0 The [facility] Comment on above: Performed By: #### C MP, TERRENCE, BNP, LIPA ####[facility] Uewffxnkzl8358 [place] [address]Dr. Chrissy Frazier Urea nitrogen/Creatinine [Mass ratio] 12.1 mg/mg Normal The [facility] Comment on above: Performed By: #### C MP, TERRENCE, BNP, LIPA ####[facility] Adgkhhclag2259 [place] [address]Dr. Chrissy Frazier UA RANDOM W/MICROSCOPICon BACTERIA TRACE Abnormal NONE SEEN The [facility] Comment on above: Performed By: #### U AMIC ####[facility] Ridmzzlaxu[address] [place] [id number]. Chrissy Frazier Bilirubin Ql (U) Negative Normal NEGATIVE The [facility] Comment on above: Performed By: #### U AMIC ####[facility] Bncwytseah[address] [place], [place] [address]Dr. Chrissy Frazier CAST NONE SEEN Normal NONE SEEN The [facility] Comment on above: Performed By: #### U AMIC ####[facility] Jkrhgjjbcg722[address] [place], [place] [address]Dr. Chrissy Frazier Clarity (U) CLEAR Normal CLEAR The [facility] Comment on above: Performed By: #### U AMIC ####[facility] Uwqqkyowjf[address] [place], [place] [address]Dr. Chrissy Frazier Color (U) YELLOW Normal YELLOW The [facility] Comment on above: Performed By: #### U AMIC ####[facility] Bakoezzvlb49[address] [place], [place] [address]Dr. Chrissy Frazier Crystals LM Nom (Urine sed) SEEN Abnormal NONE SEEN The [facility] Comment on above: Performed By: #### U AMIC ####[facility] Jypqjppiax44[address] [place], [place] [address]Dr. Chrissy Frazier Epithelial cells LM Ql (Urine sed) RARE Normal NONE SEEN /RARE The [facility] Comment on above: Performed By: #### U AMIC ####[facility] Dfftuubiyd47[address] [place], [place] [address]Dr. Chrissy Frazier Glucose Ql (U) Negative Normal NEGATIVE The [facility] Comment on above: Performed By: #### U AMIC ####[facility] Ycykdtesqr997[address] [place], [place] [address]Dr. Chrissy Frazier Hemoglobin Ql (U) Negative Normal NEGATIVE The [facility] Comment on above: Performed By: #### U AMIC ####[facility] Sahdxnfzsg[address] [place], [place] [address]Dr. Chrissy Frazier Ketones Ql (U) 15 mg/dl Abnormal NEGATIVE The [facility] Comment on above: Performed By: #### U AMIC ####[facility] Ibgscdvoth48[address] [place], [place] [address]Dr. Chrissy Frazier LEUKOCYTES Negative Normal NEGATIVE The [facility] Comment on above: Performed By: #### U AMIC ####[facility] Crctoirvfr8998 [place] [id number]. Chrissy Frazier MUCOUS NONE SEEN Normal NONE SEEN The [facility] Comment on above: Performed By: #### U AMIC ####[facility] Aifcmmgctv5912 [place] [address]Dr. Chrissy Frazier Nitrite Ql (U) Negative Normal NEGATIVE The [facility] Comment on above: Performed By: #### U AMIC ####[facility] Hxwzjzwqdw0097 [place] [address]Dr. Chrissy Frazier pH (U) 6.0 [pH] Normal 5-9 [facility] Comment on above: Performed By: #### U AMIC ####[facility] Dirsjpqdie7029 [place] [address]Dr. Chrissy Frazier RBC 0-2 Normal 0-2 The [facility] Comment on above: Performed By: #### U AMIC ####[facility] Dpyovbwbkp9843 [place] [address]Dr. Chrissy Frazier SPEC GRAVITY 1.015 Normal 1.005-<=1.025 The [facility] Comment on above: Performed By: #### U AMIC ####[facility] Vxpoubihib1833 [place] [id number]. Chrissy Frazier UA PROTEIN Negative Normal NEGATIVE/ TRACE The [facility] Comment on above: Performed By: #### U AMIC ####[facility] Bbcxzrslfa8841 [place] [id number]. Chrissy Frazier URIC ACID CRYSTALS RARE Normal The [facility] Comment on above: Performed By: #### U AMIC ####[facility] Kypclylyeo3696 [place] [address]Dr. Chrissy Frazier Urobilinogen Qn (U) 0.2 {Estrellita'U}/dL Normal 0.2 - 1. 0 [facility] Comment on above: Performed By: #### U AMIC ####[facility] Uzobfxkvtr[address] [place], [place] [address]Dr. Chrissy Frazier WBC 0-2 Abnormal NONE SEEN The [facility] Comment on above: Performed By: #### U AMIC ####[facility] Mszrjbyrpy6189 [place] [address]Dr. Chrissy Frazier AMYLASEon 07-06-2022 Amylase [Catalytic activity/Vol] 37 U/L Normal 25-115 The [facility] Comment on above: Performed By: #### C MP, LIPA, TERRENCE ####[facility] Klynqvwcjx914[address] [place], [place] [address]Dr. Chrissy Frazier CBC AUTO DIFFon 07-06-2022 BASO # 0.1 103/ul Normal 0.0-0.1 The [facility] Comment on above: Performed By: #### C BC ####[facility] Fqimsartse09[address] [place], [place] [address]Dr. Chrissy Frazier Basophils/100 WBC (Bld) 0.4 % Normal 0.2-2.0 The [facility] Comment on above: Performed By: #### C BC ####[facility] Tdysgxkpxd155[address] [place], [place] [address]Dr. Chrissy Frazier EO # 0.1 103/ul Normal 0.0-0.7 The [facility] Comment on above: Performed By: #### C BC ####[facility] Ysiqeixong250[address] [place], [place] [address]Dr. Chrissy Frazier Eosinophils/100 WBC (Bld) 0.5 % Critically low 0.9-7.0 The [facility] Comment on above: Performed By: #### C BC ####[facility] Cpeaywgfev9[address] [place], [place] [address]Dr. Chrissy Frazier Erythrocyte distribution width (RBC) [Ratio] 13.6 % Normal 11.0-15.0 The [facility] Comment on above: Performed By: #### C BC ####[facility] Djccjdyvij94[address] [place], [place] [address]Dr. Chrissy Frazier Hematocrit (Bld) [Volume fraction] 47.9 % Normal 42.0-54.0 The [facility] Comment on above: Performed By: #### C BC ####[facility] Bhevhvkpca7173 [place] [id number]. Chrissy Frazier Hemoglobin (Bld) [Mass/Vol] 16.4 g/dL Normal 14.0-18.0 The [facility] Comment on above: Performed By: #### C BC ####[facility] Rrjevyiwtl6977 [place] [id number]. Chrissy Frazier IG # 0.09 10e3/ul Critically high 0.00-0.03 [facility] Comment on above: Performed By: #### C BC ####[facility] Gxgsctfece1040 [place] [address]Dr. Chrissy Frazier IG % 0.6 % Critically high 0.0-0.5 The [facility] Comment on above: Performed By: #### C BC ####[facility] Inpcrconhx[address] [place], [place] [address]Dr. Chrissy Frazier LYMPH # 2.5 103/ul Normal 1.2-3.8 The [facility] Comment on above: Performed By: #### C BC ####[facility] Amcmrgymou7[address] [place], [place] [address]Dr. Chrissy Frazier Lymphocytes/100 WBC (Bld) 16.7 % Critically low 20.5-60.0 The [facility] Comment on above: Performed By: #### C BC ####[facility] Vcpfptxzod4998 [place] [address]Dr. Chrissy Frazier MANUAL DIFF REQ NO Normal The [facility] Comment on above: Performed By: #### C BC ####[facility] Vjqleqiiay1978 [place] [address]Dr. Chrissy Frazier MCH (RBC) [Entitic mass] 28.1 pg Normal 25.9-34.0 The [facility] Comment on above: Performed By: #### C BC ####[facility] Jiskxkenvo397[address] [place], [place] [address]Dr. Chrissy Frazier MCHC (RBC) [Mass/Vol] 34.2 g/dL Normal 29.9-35.2 The [facility] Comment on above: Performed By: #### C BC ####[facility] Fohhboucrp3469 [place] [id number]. Chrissy Frazier MCV (RBC) [Entitic vol] 82.2 fL Normal 80.0-94.0 The [facility] Comment on above: Performed By: #### C BC ####[facility] Fjzcrdqqxh2990 [place] [address]Dr. Chrissy Frazier MONO # 1.0 103/ul Critically high 0.3-0.8 The [facility] Comment on above: Performed By: #### C BC ####[facility] Bjgctsrkym5847 [place] [id number]. Chrissy Frazier Monocytes/100 WBC (Bld) 6.7 % Normal 1.7-12.0 The [facility] Comment on above: Performed By: #### C BC ####[facility] Qcixzlyzel[address] [place], [place] [phone]. Chrissy Frazier NEUT # 11.3 103/ul Critically high 1.4-6.[address] [facility] Comment on above: Performed By: #### C BC ####[facility] Onustqqdkk[address] [place], [place] [address]Dr. Chrissy Frazier Neutrophils/100 WBC (Bld) 75.1 % Critically high 43.0-75.0 The [facility] Comment on above: Performed By: #### C BC ####[facility] Hjjqjnmycf7314 [place] [id number]. Chrissy Frazier Platelet mean volume (Bld) [Entitic vol] 10.6 fL Normal 9.5-13.5 The [facility] Comment on above: Performed By: #### C BC ####[facility] Aflkhrgmhk8033 [place] [id number]. Chrissy Freddie PLT 416 103/ul Normal 150-450 The [facility] Comment on above: Performed By: #### C BC ####[facility] Debiiyntvk08[address] [place], [place] [address]Dr. Chrissy Freddie RBC 5.83 106/ul Normal 4.70-6.10 The [facility] Comment on above: Performed By: #### C BC ####[facility] Tcuzotduuj8546 [place], [place] [address]Tn. Chrissy Frazier WBC 15.0 103/ul Critically high 4.0-11.[address] [facility] Comment on above: Performed By: #### C BC ####[facility] Qdbnnbstij0488 [place], [place] [address]Wq. Chrissy Frazier Covid-19 PCR (CVDTB)on 06-21 SARS-CoV-2 (COVID-19) RNA RHIANNON+probe Ql (Unsp spec) Not detected Normal NOT DETECTED The [facility] Comment on above: Result Comment: When diagnostic [...] for this test is supported by the [place] of Health and Human Service's declaration that [...] be used). Performed By: #### C VDTBH ####[facility] Cylrgfkyug6911 [place] [id number]. Chrissy Frazier LIPASEon 07-06-2022 Lipase [Catalytic activity/Vol] 130.0 U/L Normal 73.0-393.0 The [facility] Comment on above: Performed By: #### C MANA LIPATERRENCE ####[facility] Xztzatgohh5704 [place] [phone]. Chrissy Frazier PROF 14(COMP METB)on 022 Albumin [Mass/Vol] 4.4 g/dL Normal 3.4-5.0 The [facility] Comment on above: Performed By: #### C MP LIPA, TERRENCE ####[facility] Jcugwmtpfe2108 [place] [address]Dr. Chrissy Frazier Albumin/Globulin [Mass ratio] 1.1 {ratio} Normal [facility] Comment on above: Performed By: #### C OSWALD ADAIR, TERRENCE ####[facility] Uyxlkalmbn2100 [place] [address]Dr. Chrissy Frazier ALP [Catalytic activity/Vol] 83 U/L Normal 46-116 [facility] Comment on above: Performed By: #### C OSWALD ADAIR, TERRENCE ####[facility] Apqzbliexx96[address] [place], [place] [address]Dr. Tishrowan Frazier ALT [Catalytic activity/Vol] 107 U/L Critically high 16-63 [facility] Comment on above: Performed By: #### C TESSA ADAIRA, TERRNECE ####[facility] Xfnsoxvksd[address] [place], [place] [address]Dr. Chrissy Frazier Anion gap [Moles/Vol] 20.5 mmol/L Normal [facility] Comment on above: Performed By: #### C TESSA ADAIRA, TERRENCE ####[facility] Emvavdzgwq040[address] [place], [place] [address]Dr. Chrissy Frazier AST [Catalytic activity/Vol] 46 U/L Critically high 15-37 [facility] Comment on above: Performed By: #### C TESSA ADAIRA, TERRENCE ####[facility] Jgiufsxyer399[address] [place], [place] [address]Dr. Chrissy Frazier Bilirubin [Mass/Vol] 1.2 mg/dL Critically high 0.2-1.0 [facility] Comment on above: Performed By: #### C MANA LIPA, TERRENCE ####[facility] Ugjucetpaw26[address] [place], [place] [address]Dr. Chrissy Frazier Calcium [Mass/Vol] 9.1 mg/dL Normal 8.5-10.1 [facility] Comment on above: Performed By: #### C MANA LIPA, TERRENCE ####[facility] Nimziougpw329[address] [place], [place] [address]Dr. Chrissy Frazier Chloride [Moles/Vol] 100 mmol/L Normal 98-107 [facility] Comment on above: Performed By: #### C OSWALD ADAIR TERRENCE ####[facility] Hkllgqvytc2171 [place] [address]Dr. Chrissy Frazier CO2 [Moles/Vol] 18.6 mmol/L Critically low 21.0-32.0 [facility] Comment on above: Performed By: #### C OSWALD ADAIR TERRENCE ####[facility] Mfyjlzzbho5704 [place] [address]Dr. Chrissy Frazier Creatinine [Mass/Vol] 1.44 mg/dL Critically high 0.70-1.30 [facility] Comment on above: Performed By: #### C OSWALD ADAIR TRERENCE ####[facility] Ozilqhknql425[address] [place], [place] [address]Dr. Chrissy Frazier EGFR-AF HAITIAN >60 Normal >=60 [facility] Comment on above: Performed By: #### C OSWALD ADAIR, TERRENCE ####[facility] Kkpodrzevm9[address] [place], [place] [address]Dr. Chrissy Frazier EGFR-NON AF HAITIAN 57 mL/min/1.73m2 Critically low >=60 The [facility] Comment on above: Performed By: #### C OSWALD ADAIR TERRENCE ####[facility] Oxigxehlry[address] [place], [place] [address]Dr. Chrissy Frazier Globulin (S) [Mass/Vol] 4.0 g/dL Normal [facility] Comment on above: Performed By: #### C OSWALD ADAIR TERRENCE ####[facility] Diyiemqlte4121 [place] [address]Dr. Chrissy Frazier Glucose [Mass/Vol] 117 mg/dL Critically high 74-106 [facility] Comment on above: Performed By: #### C OSWALD ADAIR TERRENCE ####[facility] Xoobkdmica[address] [place], [place] [address]Dr. Chrissy Frazier Potassium [Moles/Vol] 3.1 mmol/L Critically low 3.5-5.1 [facility] Comment on above: Performed By: #### C OSWALD ADAIR TERRENCE ####[facility] Btvznilbcg7332 [place] [address]Dr. Chrissy Frazier Protein [Mass/Vol] 8.4 g/dL Critically high 6.4-8.2 [facility] Comment on above: Performed By: #### C OSWALD ADAIR AMY ####[facility] Ojgexdnvli[address] [place], [place] [address]Dr. Chrissy Frazier Sodium [Moles/Vol] 136 mmol/L Normal 136-145 [facility] Comment on above: Performed By: #### C OSWALD ADAIR, TERRENCE ####[facility] Oebajiiews[address] [place], [place] [address]Dr. Chrissy Frazier Urea nitrogen [Mass/Vol] 15.0 mg/dL Normal 7.0-18.0 [facility] Comment on above: Performed By: #### C OSWALD ADAIR AMY ####[facility] Wtmvowobkt[address] [place], [place] [address]Dr. Chrissy Frazier Urea nitrogen/Creatinine [Mass ratio] 10.4 mg/mg Normal [facility] Comment on above: Performed By: #### C OSWALD ADAIR AMY ####[facility] Ojnllbmdha[address] [place] [id number]. Chrissy Frazier CBC AUTO DIFFon 07-05-2022 BASO # 0.0 103/ul Normal 0.0-0.1 [facility] Comment on above: Performed By: #### C BC ####[place] Lhotpdgwvb[address] [place], [place] [address]Dr. Chrissy Freddie Basophils/100 WBC (Bld) 0.3 % Normal 0.2-2.0 [facility] Comment on above: Performed By: #### C BC ####[place] Yifbmupjee216[address] [place], [place] [address]Dr. Chrissy Frazier EO # 0.2 103/ul Normal 0.0-0.7 [facility] Comment on above: Performed By: #### C BC ####[place] Xlihpvsmic[address] [place], [place] [address]Dr. Chrissy Freddie Eosinophils/100 WBC (Bld) 1.5 % Normal 0.9-7.0 [facility] Comment on above: Performed By: #### C BC ####[place] Esxvyiwsff24[address] [place] [address]Dr. Chrissy Frazier Erythrocyte distribution width (RBC) [Ratio] 13.9 % Normal 11.0-15.0 [facility] Comment on above: Performed By: #### C BC ####[place] Dtkaavhxik3209 [place] [address]Dr. Chrissy Frazier Hematocrit (Bld) [Volume fraction] 44.5 % Normal 42.0-54.0 [facility] Comment on above: Performed By: #### C BC ####[place] Pktdkwbkdg524[address] [place], [place] [address]Dr. Chrissy Frazier Hemoglobin (Bld) [Mass/Vol] 14.8 g/dL Normal 14.0-18.0 [facility] Comment on above: Performed By: #### C BC ####[place] Ewfmbiomgu037[address] [place], [place] [address]Dr. Chrissy Frazier IG # 0.05 10e3/ul Critically high 0.00-0.03 [facility] Comment on above: Performed By: #### C BC ####[place] Llvgqarysj[address] [place], [place] [address]Dr. Chrissy Frazier IG % 0.4 % Normal 0.0-0.5 [facility] Comment on above: Performed By: #### C BC ####[place] Grhtkbqmnq27[address] [place], [place] [address]Dr. Chrissy Frazier LYMPH # 3.3 103/ul Normal 1.2-3.8 [facility] Comment on above: Performed By: #### C BC ####[place] Xzdmgyerqr9[address] [place], [place] [address]Dr. Chrissy Frazier Lymphocytes/100 WBC (Bld) 29.1 % Normal 20.5-60.0 [facility] Comment on above: Performed By: #### C BC ####[place] Yvodkdxhei[address] [place], [place] [address]Dr. Chrissy Frazier MANUAL DIFF REQ NO Normal [facility] Comment on above: Performed By: #### C BC ####[place] Skyswqgizp16[address] [place] [id number]. Chrissy Freddie MCH (RBC) [Entitic mass] 28.2 pg Normal 25.9-34.0 [facility] Comment on above: Performed By: #### C BC ####[place] Hucnwapdni2168 [place] [phone]. Chrissy Freddie MCHC (RBC) [Mass/Vol] 33.3 g/dL Normal 29.9-35.2 [facility] Comment on above: Performed By: #### C BC ####[place] Fmzutnhvim7[address] [place] [address]Dr. Tishrowan Frazier MCV (RBC) [Entitic vol] 84.9 fL Normal 80.0-94.0 [facility] Comment on above: Performed By: #### C BC ####[place] Hfucfgdidf9[address] [place], [place] [address]Dr. Chrissy Frazier MONO # 0.6 103/ul Normal 0.3-0.8 [facility] Comment on above: Performed By: #### C BC ####[place] Wfhmixtvgv4775 [place] [address]Dr. Tishrowan Frazier Monocytes/100 WBC (Bld) 5.4 % Normal 1.7-12.0 [facility] Comment on above: Performed By: #### C BC ####[place] Rzcbgyvbvu9201 [place] [address]DrNancy Frazier NEUT # 7.1 103/ul Critically high 1.4-6.5 [facility] Comment on above: Performed By: #### C BC ####[place] Pjijnwmhnv1830 [place] [id number] Frazier Neutrophils/100 WBC (Bld) 63.3 % Normal 43.0-75.0 [facility] [place] Comment on above: Performed By: #### C BC ####[place] Uzsjkyntce3304 [place] [phone] Frazier Platelet mean volume (Bld) [Entitic vol] 9.9 fL Normal 9.5-13.5 [facility] Comment on above: Performed By: #### C BC ####[place] Privcwminq2099 [place] [address]Dr. Chrissy Frazier PLT 339 103/ul Normal 150-450 [facility] Comment on above: Performed By: #### C BC ####[place] Ysctsmkcrl2962 [place] [id number]. Chrissy Frazier RBC 5.24 106/ul Normal 4.70-6.10 [facility] [place] Comment on above: Performed By: #### C BC ####[place] Jzhsiszwdh1576 [place] [phone]. Chrissy Frazier WBC 11.2 103/ul Critically high 4.0-11.0 [facility] Comment on above: Performed By: #### C BC ####[place] Vwadsxasky5657 [place] [address]Dr. Chrissy Frazier PROF 14(COMP METB)on 022 Albumin [Mass/Vol] 3.8 g/dL Normal 3.4-5.0 [facility] Comment on above: Performed By: #### C MP ####[place] Kaylidoeip59[address] [place] [address]Dr. Chrissy Frazier Albumin/Globulin [Mass ratio] 1.1 {ratio} Normal [facility] Comment on above: Performed By: #### C MP ####[place] Buvaxwfrrj7645 [place] [address]Dr. Chrissy Frazier ALP [Catalytic activity/Vol] 67 U/L Normal 46-116 [facility] [place] Comment on above: Performed By: #### C MP ####[place] Fyffkfdiuk7843 [place] [address]Dr. Chrissy Frazier ALT [Catalytic activity/Vol] 75 U/L Critically high 16-63 [facility] Comment on above: Performed By: #### C MP ####[place] Lmoqjdnmpe3039 [place] [address]Dr. Chrissy Frazier Anion gap [Moles/Vol] 14.3 mmol/L Normal [facility] Comment on above: Performed By: #### C MP ####[place] Qbjlcdqagp9350 [place] [phone]. Chrissy Frazier AST [Catalytic activity/Vol] 40 U/L Critically high 15-37 [facility] Comment on above: Performed By: #### C MP ####[place] Dneuyazuvk0852 [place] [phone]. Chrissy Frazier Bilirubin [Mass/Vol] 0.9 mg/dL Normal 0.2-1.0 [facility] Comment on above: Performed By: #### C MP ####[place] Abxmtpdpkq7130 [place] [phone]. Chrissy Frazier Calcium [Mass/Vol] 8.4 mg/dL Critically low 8.5-10.1 [facility] [place] Comment on above: Performed By: #### C MP ####[place] Kslhshyrdq85[address] [place], [place] [address]Dr. Chrissy Frazier Chloride [Moles/Vol] 104 mmol/L Normal 98-107 [facility] [place] Comment on above: Performed By: #### C MP ####[place] Mcvjwqjxyq317[address] [place], [place] [address]Dr. Chrissy Frazier CO2 [Moles/Vol] 24.1 mmol/L Normal 21.0-32.[address] [facility] Comment on above: Performed By: #### C MP ####[place] Ovyqxiorlm70[address] [place], [place] [address]Dr. Chrissy Frazier Creatinine [Mass/Vol] 1.11 mg/dL Normal 0.70-1.30 [facility] [place] Comment on above: Performed By: #### C MP ####[place] Igsakffmmo4133 [place] [address]Dr. Chrissy Freddie EGFR-AF HAITIAN >60 Normal >=[address] [facility] Comment on above: Performed By: #### C MP ####[place] Rtqzvwojcx1647 [place] [phone]. Chrissy Freddie EGFR-NON AF HAITIAN >60 Normal >=60 [facility] [place] Comment on above: Performed By: #### C MP ####[place] Nchonwlcdg1562 [place] [address]Dr. Chrissy Frazier Globulin (S) [Mass/Vol] 3.6 g/dL Normal [facility] Comment on above: Performed By: #### C MP ####[place] Tsaducesps0986 [place] [address]Dr. Chrissy Frazier Glucose [Mass/Vol] 89 mg/dL Normal 74-106 [facility] Comment on above: Performed By: #### C MP ####[place] Nhkrwmcfhh42[address] [place], [place] [address]Dr. Chrissy Frazier Potassium [Moles/Vol] 3.4 mmol/L Critically low 3.5-5.1 [facility] [place] Comment on above: Performed By: #### C MP ####[place] Kxmlhwqgzt16[address] [place], [place] [address]Dr. Chrissy Frazier Protein [Mass/Vol] 7.4 g/dL Normal 6.4-8.2 [facility] Comment on above: Performed By: #### C MP ####[place] Fvlymmzjhz78[address] [place], [place] [address]Dr. Chrissy Frazier Sodium [Moles/Vol] 139 mmol/L Normal 136-145 [facility] Comment on above: Performed By: #### C MP ####[place] Vihjqceuxj8[address] [place], [place] [address]Dr. Chrissy Frazier Urea nitrogen [Mass/Vol] 10.0 mg/dL Normal 7.0-18.0 [facility] [place] Comment on above: Performed By: #### C MP ####[place] Pgeracoxby49[address] [place], [place] [address]Dr. Chrissy Frazier Urea nitrogen/Creatinine [Mass ratio] 9.0 mg/mg Normal [facility] [place] Comment on above: Performed By: #### C MP ####[place] Upygypmzci[address] [place], [place] [address]Dr. Chrissy Frazier CBC AUTO DIFFon 07-04-2022 BASO # 0.0 103/ul Normal 0.0-0.1 [facility] [place] Comment on above: Performed By: #### C BC ####[place] Evdakepyhu9681 [place] [phone]. Chrissy Frazier Basophils/100 WBC (Bld) 0.2 % Normal 0.2-2.0 [facility] [place] Comment on above: Performed By: #### C BC ####[place] Pmbujjhtcm[address] [place], [place] [address]Dr. Chrissy Frazier EO # 0.0 103/ul Normal 0.0-0.7 [facility] [place] Comment on above: Performed By: #### C BC ####[place] Wqyelokzqx[address] [place], [place] [address]Dr. Chrissy Frazier Eosinophils/100 WBC (Bld) 0.3 % Critically low 0.9-7.0 [facility] Comment on above: Performed By: #### C BC ####[place] Fksiopjfwo138[address] [place], [place] [address]Dr. Chrissy Frazier Erythrocyte distribution width (RBC) [Ratio] 14.0 % Normal 11.0-15.0 [facility] Comment on above: Performed By: #### C BC ####[place] Wdobqbxaqo[address] [place], [place] [address]Dr. Chrissy Frazier Hematocrit (Bld) [Volume fraction] 43.2 % Normal 42.0-54.0 [facility] Comment on above: Performed By: #### C BC ####[place] T[address]ronme[address] [place], [place] [id number]. Chrissy Frazier Hemoglobin (Bld) [Mass/Vol] 14.6 g/dL Normal 14.0-18.0 [facility] [place] Comment on above: Performed By: #### C BC ####[place] Btbfrwuxmh9[address] [place], [place] [address]Dr. Chrissy Frazier IG # 0.11 10e3/ul Critically high 0.00-0.03 [facility] Comment on above: Performed By: #### C BC ####[place] Kqgfpqqqgb9[address] [place], [place] [address]Dr. Chrissy Frazier IG % 0.8 % Critically high 0.0-0.5 The [facility] Comment on above: Performed By: #### C BC ####[place] Tlpvhyofdh2060 [place] [phone]. Chrissy Frazier LYMPH # 2.6 103/ul Normal 1.2-3.8 [facility] Comment on above: Performed By: #### C BC ####[place] Lbdisljjea7300 [place] [phone]. Chrisys Frazier Lymphocytes/100 WBC (Bld) 18.3 % Critically low 20.5-60.0 [facility] Comment on above: Performed By: #### C BC ####[place] Qqudacuajo3577 [place] [address]Dr. Chrissy Frazier MANUAL DIFF REQ NO Normal The [facility] Comment on above: Performed By: #### C BC ####[place] Fafazvefjl7960 [place] [address]Dr. Chrissy Frazier MCH (RBC) [Entitic mass] 28.1 pg Normal 25.9-34.0 [facility] Comment on above: Performed By: #### C BC ####[place] Owsskqfqso8498 [place] [phone]. Chrissy Frazier MCHC (RBC) [Mass/Vol] 33.8 g/dL Normal 29.9-35.2 [facility] Comment on above: Performed By: #### C BC ####[place] Uijehtmkxr6067 [place] [phone]. Chrissy Frazier MCV (RBC) [Entitic vol] 83.2 fL Normal 80.0-94.0 The [place] Comment on above: Performed By: #### C BC ####[place] Jjdvvuhnez5979 [place] [phone]. Chrissy Frazier MONO # 0.7 103/ul Normal 0.3-0.8 The [place] Comment on above: Performed By: #### C BC ####[place] Fkygczhjxx1276 [place] [address]Dr. Chrissy Frazier Monocytes/100 WBC (Bld) 5.3 % Normal 1.7-12.0 The [place] Comment on above: Performed By: #### C BC ####[place] Rnybtjvvja5739 [place] [address]Dr. Chrissy Frazier NEUT # 10.5 103/ul Critically high 1.4-6.[address] [facility] Comment on above: Performed By: #### C BC ####[place] Ptkfdtpyjz7124 [place] [phone]. Chrissy Frazier Neutrophils/100 WBC (Bld) 75.1 % Critically high 43.0-75.0 [facility] Comment on above: Performed By: #### C BC ####[place] Eiysnwiqel9861 [place] [address]Dr. Chrissy Frazier Platelet mean volume (Bld) [Entitic vol] 10.6 fL Normal 9.5-13.5 The [place] Comment on above: Performed By: #### C BC ####[place] Wryifxmaig1670 [place] [address]Dr. Chrissy Frazier PLT 309 103/ul Normal 150-450 [facility] [place] Comment on above: Performed By: #### C BC ####[place] Ocdnqkvvfo2870 [place] [address]Dr. Chrissy Frazier RBC 5.19 106/ul Normal 4.70-6.10 The [place] Comment on above: Performed By: #### C BC ####[place] Mwkfizgzvr0112 [place] [address]DrNanyc Frazier WBC 14.0 103/ul Critically high 4.0-11.[address] [facility] Comment on above: Performed By: #### C BC ####[place] Blypvwqpca4639 [place] [phone] Frazier PROF 14(COMP METB)on 022 Albumin [Mass/Vol] 4.0 g/dL Normal 3.4-5.0 [facility] Comment on above: Performed By: #### C MP ####[place] Wuytsnmgue7996 [place] [phone] Frazier Albumin/Globulin [Mass ratio] 1.1 {ratio} Normal The [place] Comment on above: Performed By: #### C MP ####[place] Lbbxjawcpc7480 [place] [address]Dr. Chrissy Frazier ALP [Catalytic activity/Vol] 67 U/L Normal 46-116 [facility] Comment on above: Performed By: #### C MP ####[place] Gznzovtnba4511 [place] [address]Dr. Chrissy Frazier ALT [Catalytic activity/Vol] 40 U/L Normal 16-63 [facility] [place] Comment on above: Performed By: #### C MP ####[place] Isaxzdpmqt39[address] [place], [place] [address]Dr. Chrissy Frazier Anion gap [Moles/Vol] 17.7 mmol/L Normal [facility] Comment on above: Performed By: #### C MP ####[place] Czmrobrwgv750[address] [place], [place] [address]Dr. Chrissy Frazier AST [Catalytic activity/Vol] 27 U/L Normal 15-37 [facility] Comment on above: Performed By: #### C MP ####[place] Unnshitsoe15[address] [place], [place] [address]Dr. Chrissy Frazier Bilirubin [Mass/Vol] 0.8 mg/dL Normal 0.2-1.0 [facility] Comment on above: Performed By: #### C MP ####[place] Yembrrkpyb8[address] [place], [place] [address]Dr. Chrissy Frazier Calcium [Mass/Vol] 8.8 mg/dL Normal 8.5-10.1 [facility] Comment on above: Performed By: #### C MP ####[place] Udkgrynmwd164[address] [place], [place] [address]Dr. Chrissy Frazier Chloride [Moles/Vol] 105 mmol/L Normal 98-107 [facility] Comment on above: Performed By: #### C MP ####[place] Dfynshqtgl364[address] [place], [place] [address]Dr. Chrissy Freddie CO2 [Moles/Vol] 16.5 mmol/L Critically low 21.0-32.0 The [facility] Comment on above: Performed By: #### C MP ####[place] Eayhtpsruj8564 [place] [address]Dr. Chrissy Frazier Creatinine [Mass/Vol] 1.02 mg/dL Normal 0.70-1.30 The [place] Comment on above: Performed By: #### C MP ####[place] Gkdflzsuna5536 [place] [phone]. Chrissy Frazier EGFR-AF HAITIAN >60 Normal >=[address] [facility] Comment on above: Performed By: #### C MP ####[place] Ggmjvkbpyt7496 [place] [address]Dr. Chrissy Frazier EGFR-NON AF HAITIAN >60 Normal >=60 [facility] [place] Comment on above: Performed By: #### C MP ####[place] Uflttrluxs7325[address] [place], [place] [address]Dr. Chrissy Frazier Globulin (S) [Mass/Vol] 3.7 g/dL Normal [facility] Comment on above: Performed By: #### C MP ####[place] Twrotgetnr8813[address] [place], [place] [address]Dr. Chrissy Frazier Glucose [Mass/Vol] 106 mg/dL Normal 74-106 [facility] Comment on above: Performed By: #### C MP ####[place] Yenjnxbspv97[address] [place], [place] [address]Dr. Chrissy Frazier Potassium [Moles/Vol] 3.2 mmol/L Critically low 3.5-5.1 The [place] Comment on above: Performed By: #### C MP ####[place] Jtxsmtfasq387[address] [place], [place] [address]Dr. Chrissy Frazier Protein [Mass/Vol] 7.7 g/dL Normal 6.4-8.2 [facility] Comment on above: Performed By: #### C MP ####[place] Rnomlubnia496[address] [place], [place] [address]Dr. Chrissy Frazier Sodium [Moles/Vol] 136 mmol/L Normal 136-145 [facility] Comment on above: Performed By: #### C MP ####[place] Lmjdpqopbg2829 [place] [address]Dr. Chrissy Frazier Urea nitrogen [Mass/Vol] 10.0 mg/dL Normal 7.0-18.0 The [place] Comment on above: Performed By: #### C MP ####[place] Jriopdzvym67[address] [place], [place] [address]Dr. Chrissy Frazier Urea nitrogen/Creatinine [Mass ratio] 9.8 mg/mg Normal The [facility] Comment on above: Performed By: #### C MP ####[place] Yluqbibzal[address] [place], [place] [address]Dr. Chrissy Frazier CBC AUTO DIFFon 07-03-2022 BASO # 0.1 103/ul Normal 0.0-0.1 [facility] [place] Comment on above: Performed By: #### C BC ####[place] Hxxqfbybfj7744[address] [place], [place] [address]Dr. Chrissy Freddie Basophils/100 WBC (Bld) 0.5 % Normal 0.2-2.0 The [facility] Comment on above: Performed By: #### C BC ####[place] Wnooqvgzzu6418[address] [place], [place] [address]Dr. Chrissy Frazier EO # 0.1 103/ul Normal 0.0-0.7 The [place] Comment on above: Performed By: #### C BC ####[place] Sgrjivgqhk0020[address] [place], [place] [address]Dr. Chrissy Freddie Eosinophils/100 WBC (Bld) 1.3 % Normal 0.9-7.0 [facility] Comment on above: Performed By: #### C BC ####[place] Vuolayyexg769[address] [place], [place] [address]Dr. Chrissy Frazier Erythrocyte distribution width (RBC) [Ratio] 14.2 % Normal 11.0-15.0 [facility] Comment on above: Performed By: #### C BC ####[place] Hsoaodhryv47[address] [place], [place] [address]Dr. Chrissy Frazier Hematocrit (Bld) [Volume fraction] 41.7 % Critically low 42.0-54.0 The [facility] Comment on above: Performed By: #### C BC ####[place] Amwvbjiwtp5219 [place] [phone]. Chrissy Frazier Hemoglobin (Bld) [Mass/Vol] 13.6 g/dL Critically low 14.0-18.0 The [facility] Comment on above: Performed By: #### C BC ####[place] Ntvqktgvls6375 [place] [address]Dr. Chrissy Frazier IG # 0.04 10e3/ul Critically high 0.00-0.03 [facility] Comment on above: Performed By: #### C BC ####[place] Npxjannoix424[address] [place], [place] [address]Dr. Chrissy Frazier IG % 0.4 % Normal 0.0-0.5 The [place] Comment on above: Performed By: #### C BC ####[place] Rgyealhugx826[address] [place], [place] [address]Dr. Tishrowan Frazier LYMPH # 3.5 103/ul Normal 1.2-3.8 The [facility] Comment on above: Performed By: #### C BC ####[place] Vioreeguig[address] [place], [place] [address]Dr. Chrissy Frazier Lymphocytes/100 WBC (Bld) 33.5 % Normal 20.5-60.0 The [facility] Comment on above: Performed By: #### C BC ####[place] Yxqajefckj7821 [place] [address]Dr. Tishrowan Frazier MANUAL DIFF REQ NO Normal The [facility] Comment on above: Performed By: #### C BC ####[place] Sggyooqfgx484[address] [place], [place] [address]Dr. Chrissy Frazier MCH (RBC) [Entitic mass] 27.9 pg Normal 25.9-34.0 The [facility] Comment on above: Performed By: #### C BC ####[place] Iwrhlokkcz475[address] [place], [place] [address]Dr. Chrissy Frazier MCHC (RBC) [Mass/Vol] 32.6 g/dL Normal 29.9-35.2 The [facility] Comment on above: Performed By: #### C BC ####[place] Gbzqnfpidm7352 [place] [phone]. Chrissy Frazier MCV (RBC) [Entitic vol] 85.6 fL Normal 80.0-94.0 The [facility] Comment on above: Performed By: #### C BC ####[place] Nodazwetfe7371 [place] [address]Dr. Chrissy Frazier MONO # 0.7 103/ul Normal 0.3-0.8 The [facility] Comment on above: Performed By: #### C BC ####[place] Faelgskgfj68[address] [place], [place] [address]Dr. Chrissy Frazier Monocytes/100 WBC (Bld) 6.5 % Normal 1.7-12.0 [facility] Comment on above: Performed By: #### C BC ####[place] Ubvwxsmcyb92[address] [place], [place] [address]Dr. Chrissy Frazier NEUT # 6.1 103/ul Normal 1.4-6.5 The [facility] Comment on above: Performed By: #### C BC ####[place] Bzontfclag10[address] [place], [place] [address]Dr. Chrissy Frazier Neutrophils/100 WBC (Bld) 57.8 % Normal 43.0-75.0 [facility] Comment on above: Performed By: #### C BC ####[place] Ngvaeqlvoj3811[address] [place], [place] [address]Dr. Chrissy Frazier Platelet mean volume (Bld) [Entitic vol] 10.4 fL Normal 9.5-13.5 The [facility] Comment on above: Performed By: #### C BC ####[place] Odyjdandgc4392 [place] [id number]. Chrissy Frazier PLT 288 103/ul Normal 150-450 [facility] Comment on above: Performed By: #### C BC ####[place] Gvxmmatebw[address] [place], [place] [address]Dr. Chrissy Frazier RBC 4.87 106/ul Normal 4.70-6.10 [facility] Comment on above: Performed By: #### C BC ####[place] Qvrbrjsfyy1257 [place] [address]Dr. Chrissy Frazier WBC 10.5 103/ul Normal 4.0-11.0 [facility] Comment on above: Performed By: #### C BC ####[place] Unyaxzkgdj725[address] [place], [place] [address]Dr. Chrissy Frazier PROF 14(COMP METB)on 022 Albumin [Mass/Vol] 3.6 g/dL Normal 3.4-5.0 [facility] Comment on above: Performed By: #### C MP ####[place] Vxcphvckqj1652 [place] [address]Dr. Chrissy Frazier Albumin/Globulin [Mass ratio] 1.1 {ratio} Normal [facility] Comment on above: Performed By: #### C MP ####[place] Fhdzsqlamh7[address] [place], [place] [address]Dr. Chrissy Frazier ALP [Catalytic activity/Vol] 58 U/L Normal 46-116 [facility] Comment on above: Performed By: #### C MP ####[place] Zrfseebhvh319[address] [place], [place] [address]Dr. Chrissy Frazier ALT [Catalytic activity/Vol] 30 U/L Normal 16-63 [facility] Comment on above: Performed By: #### C MP ####[place] Tbagzvcxdy038[address] [place], [place] [address]Dr. Chrissy Frazier Anion gap [Moles/Vol] 14.5 mmol/L Normal [facility] Comment on above: Performed By: #### C MP ####[place] Ykvwhymfnu[address] [place], [place] [address]Dr. Chrissy Frazier AST [Catalytic activity/Vol] 17 U/L Normal 15-37 [facility] Comment on above: Performed By: #### C MP ####[place] Fmtrixmuho489[address] [place], [place] [address]Dr. Chrissy Frazier Bilirubin [Mass/Vol] 0.6 mg/dL Normal 0.2-1.0 [facility] Comment on above: Performed By: #### C MP ####[place] Muscibqfcj4341 [place] [address]Dr. Chrissy Frazier Calcium [Mass/Vol] 8.4 mg/dL Critically low 8.5-10.1 [facility] Comment on above: Performed By: #### C MP ####[place] Anjkjumfcj7959 [place] [address]Dr. Chrissy Frazier Chloride [Moles/Vol] 106 mmol/L Normal 98-107 [facility] Comment on above: Performed By: #### C MP ####[place] Mwrwuxkhhr3397 [place] [address]Dr. Chrissy Frazier CO2 [Moles/Vol] 22.6 mmol/L Normal 21.0-32.[address] [facility] Comment on above: Performed By: #### C MP ####[place] Zyzwbmcyeu37[address] [place], [place] [address]Dr. Chrissy Frazier Creatinine [Mass/Vol] 1.08 mg/dL Normal 0.70-1.30 The [facility] Comment on above: Performed By: #### C MP ####[place] Nhdmwdkgdb368[address] [place], [place] [address]Dr. Chrissy Frazier EGFR-AF HAITIAN >60 Normal >=[address] [facility] Comment on above: Performed By: #### C MP ####[place] Uzdzgtsqry[address] [place], [place] [address]Dr. Chrissy Frazier EGFR-NON AF HAITIAN >60 Normal >=60 [facility] Comment on above: Performed By: #### C MP ####[place] Ssdouvzwmz[address] [place], [place] [address]Dr. Chrissy Freddie Globulin (S) [Mass/Vol] 3.3 g/dL Normal The [facility] Comment on above: Performed By: #### C MP ####[place] Xssxrotjnx[address] [place], [place] [address]Dr. Chrissy Freddie Glucose [Mass/Vol] 94 mg/dL Normal 74-106 [facility] Comment on above: Performed By: #### C MP ####[place] Ffaomwywdh01[address] [place], [place] [address]Dr. Tishrowan Frazier Potassium [Moles/Vol] 3.1 mmol/L Critically low 3.5-5.1 [facility] Comment on above: Performed By: #### C MP ####[place] Njuhbqwmez[address] [place] [address]Dr. Chrissy Frazier Protein [Mass/Vol] 6.9 g/dL Normal 6.4-8.2 [facility] Comment on above: Performed By: #### C MP ####[place] G[address] [place], [place] [address]Dr. Chrissy Frazier Sodium [Moles/Vol] 140 mmol/L Normal 136-145 [facility] Comment on above: Performed By: #### C MP ####[place] Lqeinglrng[address] [place], [place] [address]Dr. Chrissy Frazier Urea nitrogen [Mass/Vol] 10.0 mg/dL Normal 7.0-18.0 [facility] Comment on above: Performed By: #### C MP ####[place] Padinhqkwz90[address] [place], [place] [address]Dr. Chrissy Frazier Urea nitrogen/Creatinine [Mass ratio] 9.3 mg/mg Normal [facility] Comment on above: Performed By: #### C MP ####[place] Iyvqmpzkdz05[address] [place], [place] [address]Dr. Chrissy Frazier CBC AUTO DIFFon 07-02-2022 BASO # 0.0 103/ul Normal 0.0-0.1 [facility] Comment on above: Performed By: #### C BC ####[place] Zjnqbqxbxs065[address] [place], [place] [address]Dr. Chrissy Frazier Basophils/100 WBC (Bld) 0.2 % Normal 0.2-2.0 [facility] Comment on above: Performed By: #### C BC ####[place] Mdmwjkjchg[address] [place], [place] [address]Dr. Chrissy Frazier EO # 0.0 103/ul Normal 0.0-0.7 [facility] Comment on above: Performed By: #### C BC ####[place] Ywgaajfbca365[address] [place], [place] [address]Dr. Chrissy Frazier Eosinophils/100 WBC (Bld) 0.0 % Critically low 0.9-7.0 [facility] Comment on above: Performed By: #### C BC ####[place] Mingtsyirb[address] [place] [address]Dr. Chrissy Frazier Erythrocyte distribution width (RBC) [Ratio] 14.2 % Normal 11.0-15.0 [facility] Comment on above: Performed By: #### C BC ####[place] Suryztqopz49[address] [place] [address]Dr. Chrissy Frazier Hematocrit (Bld) [Volume fraction] 46.2 % Normal 42.0-54.0 [facility] Comment on above: Performed By: #### C BC ####[place] Aondehljpl[address] [place], [place] [address]Dr. Chrissy Frazier Hemoglobin (Bld) [Mass/Vol] 15.2 g/dL Normal 14.0-18.0 [facility] Comment on above: Performed By: #### C BC ####[place] Yakmrolbea9[address] [place], [place] [address]Dr. Chrissy Frazier IG # 0.07 10e3/ul Critically high 0.00-0.03 [facility] Comment on above: Performed By: #### C BC ####[place] Hcssiysvjc59[address] [place], [place] [address]Dr. Chrissy Frazier IG % 0.4 % Normal 0.0-0.5 [facility] Comment on above: Performed By: #### C BC ####[place] Oakuwljnmu[address] [place], [place] [address]Dr. Chrissy Frazier LYMPH # 2.8 103/ul Normal 1.2-3.8 [facility] Comment on above: Performed By: #### C BC ####[place] Hnmjuamkwo65[address] [place], [place] [address]Dr. Chrissy Frazier Lymphocytes/100 WBC (Bld) 16.7 % Critically low 20.5-60.0 [facility] Comment on above: Performed By: #### C BC ####[place] Dirfrzwwvi8370 [place] [address]Dr. Chrissy Freddie MANUAL DIFF REQ NO Normal The [facility] Comment on above: Performed By: #### C BC ####[place] Uudpwmwihs3860 [place] [address]Dr. Chrissy Frazier MCH (RBC) [Entitic mass] 28.3 pg Normal 25.9-34.0 [facility] Comment on above: Performed By: #### C BC ####[place] Lhnaggixob64[address] [place], [place] [address]Dr. Chrissy Freddie MCHC (RBC) [Mass/Vol] 32.9 g/dL Normal 29.9-35.2 [facility] Comment on above: Performed By: #### C BC ####[place] Jmymgjyxwb47[address] [place], [place] [address]Dr. Chrissy Freddie MCV (RBC) [Entitic vol] 86.0 fL Normal 80.0-94.0 [facility] Comment on above: Performed By: #### C BC ####[place] Tkdhgbgomo34[address] [place], [place] [address]Dr. Chrissy Freddie MONO # 0.9 103/ul Critically high 0.3-0.8 The [facility] Comment on above: Performed By: #### C BC ####[place] Mdolkaprru53[address] [place], [place] [address]Dr. Tishrowan Frazier Monocytes/100 WBC (Bld) 5.1 % Normal 1.7-12.0 [facility] Comment on above: Performed By: #### C BC ####[place] Lkrbqhvijp7048 [place] [address]Dr. Tishrowan Freddie NEUT # 13.2 103/ul Critically high 1.4-6.[address] [facility] Comment on above: Performed By: #### C BC ####[place] Fdkrmunpha87[address] [place], [place] [address]Dr. Chrissy Frazier Neutrophils/100 WBC (Bld) 77.6 % Critically high 43.0-75.0 [facility] Comment on above: Performed By: #### C BC ####[place] Xfnxwzmovg0464 [place] [address]Dr. Chrissy Freddie Platelet mean volume (Bld) [Entitic vol] 11.6 fL Normal 9.5-13.5 [facility] Comment on above: Performed By: #### C BC ####[place] Avmwtkjapn6746 [place] [address]Dr. Tishrowan Freddie PLT 317 103/ul Normal 150-450 [facility] Comment on above: Performed By: #### C BC ####[place] Cewuyupgev4878 [place] [address]Dr. Chrissy Frazier RBC 5.37 106/ul Normal 4.70-6.10 [facility] Comment on above: Performed By: #### C BC ####[place] Dthvovbris9710 [place] [address]Dr. Chrissy Frazier WBC 17.1 103/ul Critically high 4.0-11.0 [facility] Comment on above: Performed By: #### C BC ####[place] Fgbbvhbdnc5052 [place] [address]Dr. Chrissy Frazier CT ABD/PELV W CONon 07-02-20 CT ABD/PELV W CON Normal [facility] H PYLORI ANTIBODY IGGon 06-21 H. PYLORI IGG ABS 0.13 Index Value Normal 0.00-0.79 [facility] Comment on above: Result Comment: Nega tive <0.80 Equivocal 0.80 - 0.89 Positive >0.89 Performed By: #### H PYLLC ####[place] Rylweksbye9012 [place] [address]Dr. Chrissy Frazier PROF 14(COMP METB)on 022 Albumin [Mass/Vol] 3.8 g/dL Normal 3.4-5.0 [facility] Comment on above: Performed By: #### C MP ####[place] Ptrplipjfn8914 [place] [address]Dr. Chrissy Frazier Albumin/Globulin [Mass ratio] 1.0 {ratio} Normal [facility] Comment on above: Performed By: #### C MP ####[place] Caddcxybep0608 [place] [id number]. Chrissy Frazier ALP [Catalytic activity/Vol] 68 U/L Normal 46-116 [facility] Comment on above: Performed By: #### C MP ####[place] Bshpefxiyf0693 [place] [address]Dr. Chrissy Frazier ALT [Catalytic activity/Vol] 34 U/L Normal 16-63 [facility] Comment on above: Performed By: #### C MP ####[place] Pilqniagel[address] [place], [place] [address]Dr. Chrissy Frazier Anion gap [Moles/Vol] 17.9 mmol/L Normal [facility] Comment on above: Performed By: #### C MP ####[place] Mfcwssmove146[address] [place], [place] [address]Dr. Chrissy Frazier AST [Catalytic activity/Vol] 24 U/L Normal 15-37 [facility] Comment on above: Performed By: #### C MP ####[place] Jekjqdclqq311[address] [place], [place] [address]Dr. Chrissy Frazier Bilirubin [Mass/Vol] 0.6 mg/dL Normal 0.2-1.0 [facility] Comment on above: Performed By: #### C MP ####[place] Dzegeitbtd430[address] [place], [place] [address]Dr. Chrissy Frazier Calcium [Mass/Vol] 8.8 mg/dL Normal 8.5-10.1 [facility] Comment on above: Performed By: #### C MP ####[place] Bksdujqscp[address] [place], [place] [address]Dr. Chrissy Frazier Chloride [Moles/Vol] 105 mmol/L Normal 98-107 [facility] Comment on above: Performed By: #### C MP ####[place] Nhtdfwncny32[address] [place], [place] [address]Dr. Chrissy Frazier CO2 [Moles/Vol] 18.8 mmol/L Critically low 21.0-32.0 [facility] Comment on above: Performed By: #### C MP ####[place] Ekbzcfektw[address] [place], [place] [address]Dr. Chrissy Frazier Creatinine [Mass/Vol] 1.15 mg/dL Normal 0.70-1.30 [facility] Comment on above: Performed By: #### C MP ####[place] Thdmlayqpw3276 [place] [address]Dr. Chrissy Freddie EGFR-AF HAITIAN >60 Normal >=60 [facility] Comment on above: Performed By: #### C MP ####[place] Kqybmatnst4931 [place] [address]Dr. Chrissy Frazier EGFR-NON AF HAITIAN >60 Normal >=60 [facility] Comment on above: Performed By: #### C MP ####[place] Kzioavcbjq058[address] [place], [place] [address]Dr. Chrissy Frazier Globulin (S) [Mass/Vol] 3.9 g/dL Normal [facility] Comment on above: Performed By: #### C MP ####[place] Msstpsaxsd69[address] [place], [place] [address]Dr. Chrissy Frazier Glucose [Mass/Vol] 124 mg/dL Critically high 74-106 [facility] Comment on above: Performed By: #### C MP ####[place] Nkgnfpbyru88[address] [place], [place] [address]Dr. Chrissy Frazier Potassium [Moles/Vol] 3.7 mmol/L Normal 3.5-5.1 [facility] Comment on above: Performed By: #### C MP ####[place] Gvhppksfkt47[address] [place], [place] [address]Dr. Chrissy Frazier Protein [Mass/Vol] 7.7 g/dL Normal 6.4-8.2 [facility] Comment on above: Performed By: #### C MP ####[place] Qokdihtxqu9[address] [place], [place] [address]Dr. Chrissy Frazier Sodium [Moles/Vol] 138 mmol/L Normal 136-145 [facility] Comment on above: Performed By: #### C MP ####[place] Pgqmebmgdr38[address] [place], [place] [address]Dr. Chrissy Frazier Urea nitrogen [Mass/Vol] 9.0 mg/dL Normal 7.0-18.0 [facility] Comment on above: Performed By: #### C MP ####[place] Odeqspbori[address] [place], [place] [address]Dr. Chrissy Frazier Urea nitrogen/Creatinine [Mass ratio] 7.8 mg/mg Normal [facility] Comment on above: Performed By: #### C MP ####[place] Atxythrxcf[address] [place], [place] [address]Dr. Chrissy Frazier AMMONIAon 07-01-2022 Ammonia (P) [Moles/Vol] 14 umol/L Normal 11-32 [facility] Comment on above: Performed By: #### A MM ####[place] Brhdujxsqe[address] [place], [place] [address]Dr. Chrissy Frazier AMYLASEon 07-01-2022 Amylase [Catalytic activity/Vol] 32 U/L Normal 25-115 [facility] Comment on above: Performed By: #### A MY, PHOS, CMP, LIPA ####[place] Wggayeitbw30[address] [place], [place] [address]Dr. Chrissy Frazier CBC AUTO DIFFon 07-01-2022 BASO # 0.1 103/ul Normal 0.0-0.1 [facility] Comment on above: Performed By: #### C BC ####[place] Dwqvmikkun169[address] [place], [place] [address]Dr. Chrissy Frazier Basophils/100 WBC (Bld) 0.4 % Normal 0.2-2.0 [facility] Comment on above: Performed By: #### C BC ####[place] Baxnnjgilh[address] [place], [place] [address]Dr. Chrissy Frazier EO # 0.2 103/ul Normal 0.0-0.7 [facility] Comment on above: Performed By: #### C BC ####[place] Radlicjcme60[address] [place], [place] [address]Dr. Chrissy Frazier Eosinophils/100 WBC (Bld) 0.9 % Normal 0.9-7.0 [facility] Comment on above: Performed By: #### C BC ####[place] Bcbminvkrs7049 [place] [address]Dr. Chrissy Frazier Erythrocyte distribution width (RBC) [Ratio] 13.8 % Normal 11.0-15.0 [facility] Comment on above: Performed By: #### C BC ####[place] Bpibzrtaci0367 [place] [address]Dr. Chrissy Frazier Hematocrit (Bld) [Volume fraction] 46.3 % Normal 42.0-54.0 [facility] Comment on above: Performed By: #### C BC ####[place] Ntaxqegedw[address] [place], [place] [address]Dr. Chrissy Frazier Hemoglobin (Bld) [Mass/Vol] 15.4 g/dL Normal 14.0-18.0 [facility] Comment on above: Performed By: #### C BC ####[place] Zyvgpkxckb8[address] [place], [place] [address]Dr. Chrissy Frazier IG # 0.05 10e3/ul Critically high 0.00-0.03 [facility] Comment on above: Performed By: #### C BC ####[place] Sszfrbyeql[address] [place], [place] [address]Dr. Chrissy Frazier IG % 0.3 % Normal 0.0-0.5 [facility] Comment on above: Performed By: #### C BC ####[place] Dhcxddjcld06[address] [place], [place] [address]Dr. Chrissy Frazier LYMPH # 2.0 103/ul Normal 1.2-3.8 [facility] Comment on above: Performed By: #### C BC ####[place] Lzmpoizlln[address] [place], [place] [address]Dr. Chrissy Frazier Lymphocytes/100 WBC (Bld) 12.9 % Critically low 20.5-60.0 [facility] Comment on above: Performed By: #### C BC ####[place] Otelaewzzh[address] [place], [place] [address]Dr. Chrissy Frazier MANUAL DIFF REQ NO Normal The [facility] Comment on above: Performed By: #### C BC ####[place] Yywgfjipdx0317 [place] [id number]. Chrissy Frazier MCH (RBC) [Entitic mass] 28.6 pg Normal 25.9-34.0 [facility] Comment on above: Performed By: #### C BC ####[place] Vnbzjlohzk2780 [place] [address]Dr. Chrissy Frazier MCHC (RBC) [Mass/Vol] 33.3 g/dL Normal 29.9-35.2 [facility] Comment on above: Performed By: #### C BC ####[place] [address]wz[address] [place], [place] [id number]. Chrissy Frazier MCV (RBC) [Entitic vol] 86.1 fL Normal 80.0-94.0 [facility] Comment on above: Performed By: #### C BC ####[place] Imbjmtshqy[address] [place], [place] [address]Dr. Chrissy Freddie MONO # 0.5 103/ul Normal 0.3-0.8 [facility] Comment on above: Performed By: #### C BC ####[place] Yktzcmswyx[address] [place], [place] [address]Dr. Chrissy Freddie Monocytes/100 WBC (Bld) 3.0 % Normal 1.7-12.0 [facility] Comment on above: Performed By: #### C BC ####[place] [address]ams[address] [place], [place] [address]Dr. Chrissy Frazier NEUT # 13.0 103/ul Critically high 1.4-6.[address] [facility] Comment on above: Performed By: #### C BC ####[place] [address]wlww[address] [place], [place] [address]Dr. Chrissy Freddie Neutrophils/100 WBC (Bld) 82.5 % Critically high 43.0-75.0 [facility] Comment on above: Performed By: #### C BC ####[place] Eldkentxkx[address] [place], [place] [address]Dr. Chrissy Frazier Platelet mean volume (Bld) [Entitic vol] 10.0 fL Normal 9.5-13.5 [facility] Comment on above: Performed By: #### C BC ####[place] Pwvfnzcdae0350 [place], [place] [address]Zy. Chrissy Frazier PLT 370 103/ul Normal 150-450 [facility] Comment on above: Performed By: #### C BC ####[place] Puonkmjiio5184 [place], [place] [address]Om. Chrissy Frazier RBC 5.38 106/ul Normal 4.70-6.10 [facility] Comment on above: Performed By: #### C BC ####[place] Zjpqqdnhqo2529 [place], [place] [address]Ln. Chrissy Frazier WBC 15.8 103/ul Critically high 4.0-11.[address] [facility] Comment on above: Performed By: #### C BC ####[place] Pqqnqdfflz[address] [place], [place] [address]Fl. Chrissy Frazier CULTURE URINEon 07-01-2022 CULTURE URINE Culture Observations : No growth Normal [facility] Comment on above: Performed By: #### U RCX ####[facility] Qszfvvderd5182 [place], [place] [address]Ls. Chrissy Frazier Covid-19 PCR (CVDTB)on 06-21 SARS-CoV-2 (COVID-19) RNA RHIANNON+probe Ql (Unsp spec) Not detected Normal NOT DETECTED [facility] Comment on above: Result Comment: When diagnostic [...] for this test is supported by the [place] of Health and Human Service's declaration that [...] be used). Performed By: #### C VDTBH ####[place] Plbtfkfnps22[address] [place] [address]Dr. Chrissy Frazier DRUG SCREEN RAPID (URINE)on 07-01-2022 AMP Negative Normal NEGATIVE [facility] Comment on above: Performed By: #### D RUGRPD, UAMIC ####[place] Icahxorpgi110[address] [place] [address]Dr. Chrissy Frazier BAR Negative Normal NEGATIVE [facility] Comment on above: Performed By: #### D RUGRPD, UAMIC ####[place] Ldvknaxjgt6448 [place] [address]Dr. Chrissy Frazier BUP Negative Normal NEGATIVE [facility] Comment on above: Performed By: #### D RUGRPD, UAMIC ####[place] Qvnsjkkwuh7167 [place] [address]Dr. Chrissy Frazier BZO Negative Normal NEGATIVE [facility] Comment on above: Performed By: #### D RUGRPD, UAMIC ####[place] Squiwwojcy1203 [place] [address]Dr. Chrissy Frazier LAUREN Negative Normal NEGATIVE [facility] Comment on above: Performed By: #### D RUGRPD, UAMIC ####[place] Cghvvbreud5978 [place] [address]Dr. Chrissy Frazier CUT-OFFS SEE BELOW Normal [facility] Comment on above: Result Comment: AMP (Amphetamine): 500ng/mL, BAR (Barbituates): 200 ng/mL, BZO (Benzodiazepines): 150 ng/mL, BUP (Buprenorphine): 10 ng/mL, LAUREN (Cocaine): 150 ng/mL, mAMP (Methamphetamine): 500 ng/mL, MTD (Methadone): 200 ng/mL, OPI (Opiates): 100 ng/mL, OXY (Oxycodone): 100 ng/mL, PCP (Phencyclidine): 25 ng/mL, PPX (Propoxyphene): 300 ng/mL, THC (Cannabinoids): 50 ng/mL, TCA (Trycyclic Antidepressants): 300 ng/mL Performed By: #### D RUGRPD, UAMIC ####[place] Yqmcdgdvuu0321 [place] [id number]. Chrissy Frazier DRUG CUT HEADER DRUG CLASS TEST SYSTEM CUT-OFF CONCENTRATIONS ARE FOLLOWS: Normal [facility] Comment on above: Performed By: #### D RUGALDAD, UAMIC ####[place] Xncjbbnuqs2457 [place] [id number]. Chrissy Frazier mAMP Negative Normal NEGATIVE [facility] Comment on above: Performed By: #### D RUGRPD, UAMIC ####[place] Grxcawbinl2216 [place] [address]Dr. Chrissy Frazier MTD Negative Normal NEGATIVE [facility] Comment on above: Performed By: #### D RUGALDAD, UAMIC ####[place] [address] [place], [place] [address]Dr. Chrissy Frazier OPI Negative Normal NEGATIVE [facility] Comment on above: Performed By: #### D RUGRPD, UAMIC ####[place] [address]fsuks[address] [place], [place] [address]Dr. Chrissy Frazier OXY Negative Normal NEGATIVE [facility] Comment on above: Performed By: #### D RUGALDAD, UAMIC ####[place] E[address]rete[address] [place], [place] [address]Dr. Chrissy Frazier PCP Negative Normal NEGATIVE [facility] Comment on above: Performed By: #### D RUGALDAD, UAMIC ####[place] Yncqkawdau5000 [place] [address]Dr. Chrissy Frazier PPX Negative Normal NEGATIVE [facility] Comment on above: Performed By: #### D RUGRPD, UAMIC ####[place] Usetcjpoxn9762 [place] [address]Dr. Tishlan Frazier TCA Negative Normal NEGATIVE [facility] Comment on above: Performed By: #### D RUGRPD, UAMIC ####[place] Siullnvcis3923 [place] [address]Dr. Chrissy Frazier THC Positive Abnormal NEGATIVE [facility] Comment on above: Performed By: #### D RUGRPD, UAMIC ####[place] Weoykokcpy4289 [place] [id number]. Chrissy Frazier LACTATE/LACTIC ACIDon 2021 Lactate [Moles/Vol] 4.4 mmol/L Critically high 0.4-1.9 [facility] Comment on above: Performed By: #### L ACT ####[facility] Lrivdpnhqi5189 [place] [address]Dr. Chrissy Frazier LIPASEon 07-01-2022 Lipase [Catalytic activity/Vol] 57.0 U/L Critically low 73.0-393.0 [facility] Comment on above: Performed By: #### A MY, PHOS, CMP, LIPA ####[facility] Wexdjxnojj8433 [place] [address]Dr. Chrissy Frazier PHOSPHORUSon 07-01-2022 Phosphate [Mass/Vol] 1.4 mg/dL Critically low 2.6-4.7 [facility] Comment on above: Performed By: #### A MY, PHOS, CMP, LIPA ####[place] Kcjioancbf5887 [place] [address]Dr. Chrissy Frazier PROF 14(COMP METB)on 022 Albumin [Mass/Vol] 4.2 g/dL Normal 3.4-5.0 [facility] Comment on above: Performed By: #### A MY, PHOS, CMP, LIPA ####[place] Lvrnohxdfl1925 [place] [address]Dr. Chrissy Frazier Albumin/Globulin [Mass ratio] 1.1 {ratio} Normal [facility] Comment on above: Performed By: #### A MY, PHOS, CMP, LIPA ####[place] Djikktqtne2605 [place] [address]Dr. Chrissy Frazier ALP [Catalytic activity/Vol] 73 U/L Normal 46-116 [facility] Comment on above: Performed By: #### A MY, PHOS, CMP, LIPA ####[place] Kqmxnbdjqv9787 [place] [address]Dr. Chrissy Frazier ALT [Catalytic activity/Vol] 43 U/L Normal 16-63 [facility] Comment on above: Performed By: #### A MY, PHOS, CMP, LIPA ####[place] Yiurydzguk2009 [place] [address]Dr. Chrissy Frazier Anion gap [Moles/Vol] 19.0 mmol/L Normal [facility] Comment on above: Performed By: #### A MY, PHOS, CMP, LIPA ####[place] Gtbdyolsok9503 [place] [address]Dr. Chrissy Frazier AST [Catalytic activity/Vol] 21 U/L Normal 15-37 [facility] Comment on above: Performed By: #### A MY, PHOS, CMP, LIPA ####[place] E[address]ijjybgxf[address] [place], [place] [address]Dr. Chrissy Frazier Bilirubin [Mass/Vol] 0.5 mg/dL Normal 0.2-1.0 [facility] Comment on above: Performed By: #### A MY, PHOS, CMP, LIPA ####[place] Nyggzqsneq[address] [place], [place] [address]Dr. Chrissy Frazier Calcium [Mass/Vol] 9.3 mg/dL Normal 8.5-10.1 [facility] Comment on above: Performed By: #### A MY, PHOS, CMP, LIPA ####[place] Alfgthdrlh7851 [place] [address]Dr. Chrissy Frazier Chloride [Moles/Vol] 103 mmol/L Normal 98-107 [facility] Comment on above: Performed By: #### A MY, PHOS, CMP, LIPA ####[place] Htockxaury[address] [place], [place] [address]Dr. Chrissy Frazier CO2 [Moles/Vol] 21.1 mmol/L Normal 21.0-32.[address] [facility] Comment on above: Performed By: #### A MY, PHOS, CMP, LIPA ####[place] Zzrcjexope1623 [place] [address]Dr. Chrissy Frazier Creatinine [Mass/Vol] 1.44 mg/dL Critically high 0.70-1.30 [facility] Comment on above: Performed By: #### A MY, PHOS, CMP, LIPA ####[place] Ecplnkqvvk2554 [place] [address]Dr. Chrissy Frazier EGFR-AF HAITIAN >60 Normal >=[address] [facility] Comment on above: Performed By: #### A MY, PHOS, CMP, LIPA ####[facility] Uukduvzlij0812 [place] [address]Dr. Chrissy Frazier EGFR-NON AF HAITIAN 57 mL/min/1.73m2 Critically low >=60 [facility] Comment on above: Performed By: #### A MY, PHOS, CMP, LIPA ####[facility] Ofxsaqteaw6891 [place] [address]Dr. Chrissy Frazier Globulin (S) [Mass/Vol] 3.9 g/dL Normal [facility] Comment on above: Performed By: #### A MY, PHOS, CMP, LIPA ####[place] Njjmzuqaxi6965 [place] [address]Dr. Chrissy Frazier Glucose [Mass/Vol] 148 mg/dL Critically high 74-106 [facility] Comment on above: Performed By: #### A MY, PHOS, CMP, LIPA ####[place] Bjqqphucvw9892 [place] [address]Dr. Chrissy Frazier Potassium [Moles/Vol] 3.1 mmol/L Critically low 3.5-5.1 [facility] Comment on above: Performed By: #### A MY, PHOS, CMP, LIPA ####[facility] Sraleufyup8211 [place] [address]Dr. Chrissy Frazier Protein [Mass/Vol] 8.1 g/dL Normal 6.4-8.2 [facility] Comment on above: Performed By: #### A MY, PHOS, CMP, LIPA ####[facility] Ozbvqepqjm2371 [place] [address]Dr. Chrissy Frazier Sodium [Moles/Vol] 140 mmol/L Normal 136-145 [facility] Comment on above: Performed By: #### A MY, PHOS, CMP, LIPA ####[place] Daowfubcyo5876 [place] [address]Dr. Chrissy Frazier Urea nitrogen [Mass/Vol] 10.0 mg/dL Normal 7.0-18.0 [facility] Comment on above: Performed By: #### A MY, PHOS, CMP, LIPA ####[facility] Vacrdtdotd5189 [place] [address]Dr. Chrissy Frazier Urea nitrogen/Creatinine [Mass ratio] 6.9 mg/mg Normal [facility] Comment on above: Performed By: #### A MY, PHOS, CMP, LIPA ####[facility] Jrotgjylph8807 [place] [address]Dr. Chrissy Frazier UA RANDOM W/MICROSCOPICon BACTERIA TRACE Abnormal NONE SEEN [facility] Comment on above: Performed By: #### D REYES, UAMIC ####[facility] Fedhqcsgxh7704 [place] [address]Dr. Chrissy Frazier Bilirubin Ql (U) Negative Normal NEGATIVE The [facility] Comment on above: Performed By: #### D REYES, UAMIC ####[facility] Yphvvxwbmo4240 [place] [address]Dr. Chrissy Frazier CAST NONE SEEN Normal NONE SEEN [facility] Comment on above: Performed By: #### D CHAYAD, UAMIC ####[facility] Gjifrnenat8704 [place] [address]Dr. Chrissy Frazier Clarity (U) CLEAR Normal CLEAR [facility] Comment on above: Performed By: #### D RUGALDAD, UAMIC ####[facility] Ncgfpkmowo9407 [place] [address]Dr. Chrissy Frazier Color (U) YELLOW Normal YELLOW [facility] Comment on above: Performed By: #### D CHAYAD, UAMIC ####[facility] Chgabahwzz2628 [place] [address]Dr. Chrissy Frazier Crystals LM Nom (Urine sed) NONE SEEN Normal NONE SEEN [facility] Comment on above: Performed By: #### D CHAYAD, UAMIC ####[facility] Xkogysvfhb9071 [place] [address]Dr. Chrissy Frazier Epithelial cells LM Ql (Urine sed) RARE Normal NONE SEEN /RARE [facility] Comment on above: Performed By: #### Amelie CHAMBERS UAMIC ####[facility] Mwfxhrzxoy2187 [place] [address]Dr. Chrissy Frazier Glucose Ql (U) Negative Normal NEGATIVE The [facility] Comment on above: Performed By: #### Amelie CHAMBERS UAMIC ####[place] Tmwxxlcima[address] [place] [address]Dr. Chrissy Frazier Hemoglobin Ql (U) Negative Normal NEGATIVE The [facility] Comment on above: Performed By: #### Amelie CHAMBERS UAMIC ####[place] Upecjcjror[address] [place], [place] [address]Dr. Chrissy Frazier Ketones Ql (U) 40 mg/dl Abnormal NEGATIVE The [facility] Comment on above: Performed By: #### Amelie CHAMBERS UAMIC ####[place] Dnroqmrohe[address] [place], [place] [address]Dr. Chrissy Frazier LEUKOCYTES Negative Normal NEGATIVE The [place] Comment on above: Performed By: #### Amelie CHAMBERS UAMIC ####[place] Njcbewthbl[address] [place], [place] [address]Dr. Chrissy Frazier MUCOUS MODERATE Abnormal NONE SEEN The [place] Comment on above: Performed By: #### Amelie CHAMBERS UAMIC ####[place] Yqwkavlfoq[address] [place], [place] [address]Dr. Chrissy Frazier Nitrite Ql (U) Negative Normal NEGATIVE The [facility] Comment on above: Performed By: #### Amelie CHAMBERS UAMIC ####[place] Sxqnjvsbkq[address] [place], [place] [address]Dr. Chrissy Frazier pH (U) 6.0 [pH] Normal 5-9 The [place] Comment on above: Performed By: #### Amelie CHAMBERS UAMIC ####[place] Zkixflynat[address] [place] [address]Dr. Chrissy Frazier RBC 0-2 Normal 0-2 The [place] Comment on above: Performed By: #### D CHAYAD, UAMIC ####[place] Jqrmxweccr49[address] [place] [id number]. Chrissy Frazier SPEC GRAVITY 1.020 Normal 1.005-<=1.025 The [facility] Comment on above: Performed By: #### D CHAYAD, UAMIC ####[place] Omtjelsrmg[address] [place] [address]Dr. Chrissy Frazier UA PROTEIN Negative Normal NEGATIVE/ TRACE The [place] Comment on above: Performed By: #### D CHAYAD, UAMIC ####[place] Zpilnokpwq6485 [place] [phone]. Tishrowan Frazier Urobilinogen Qn (U) 0.2 {Estrellita'U}/dL Normal 0.2 - 1. 0 The [place] Comment on above: Performed By: #### D REYES, UAMIC ####[place] Lcofzikais[address] [place] [address]Dr. Tishrowan Frazier WBC 0-2 Abnormal NONE SEEN The [place] Comment on above: Performed By: #### D REYES, UAMIC ####[place] Gfgpwazknp5839 [place] [address]Dr. Chrissy Frazier XR ABD FLAT UP_PA Enoch 07-01 XR ABD FLAT UP_PA CH Normal The [place] [facility]on SARS-CoV-2 (COVID-19) RNA RHIANNON+probe Ql (Unsp spec) Not detected Normal NOT DETECTED The [place] Comment on above: Result Comment: When diagnostic [...] for this test is supported by the [place] of Health and Human Service's declaration that [...] longer be used). Performed By: #### C VDTB ####[place] Fvnfvmrfza4[address] [place] [address]Dr. Chrissy Frazier SYMPTOMATIC COVID-19 ANTIGEN on 04-23-2022 EUA Statement SEE BELOW Normal [facility] Comment on above: Result Comment: [...] revoked sooner. Performed By: #### C VDAGS ####[place] Nceterixen[address] [place], [place] [address]Dr. Chrissy Frazier SARS-CoV-2 (COVID-19) RNA RHIANNON+probe Ql (Unsp spec) Negative Normal NEGATIVE [facility] Comment on above: Performed By: #### C VDAGS ####[place] Emthtweljz28[address] [place] [address]Dr. Chrissy Frazier AMYLASEon 04-04-2022 Amylase [Catalytic activity/Vol] 40 U/L Normal 25-115 [facility] Comment on above: Performed By: #### C MP, TERRENCE, LIPA ####[place] Baydjautab4[address] [place] [address]Dr. Chrissy Frazier CBC AUTO DIFFon 04-04-2022 BASO # 0.1 103/ul Normal 0.0-0.1 [facility] Comment on above: Performed By: #### C BC ####[place] Xskatkqlum1678 [place] [address]Dr. Chrissy Freddie Basophils/100 WBC (Bld) 0.4 % Normal 0.2-2.0 [facility] Comment on above: Performed By: #### C BC ####[place] Jcwfjzkxti06[address] [place], [place] [address]Dr. Chrissy Frazier EO # 0.1 103/ul Normal 0.0-0.7 The [place] Comment on above: Performed By: #### C BC ####[place] Lzguznsuff157[address] [place], [place] [address]Dr. Chrissy Frazier Eosinophils/100 WBC (Bld) 0.6 % Critically low 0.9-7.0 [facility] Comment on above: Performed By: #### C BC ####[place] Qnypnyvjlz332[address] [place], [place] [address]Dr. Tishrowan Frazier Erythrocyte distribution width (RBC) [Ratio] 13.2 % Normal 11.0-15.0 [facility] Comment on above: Performed By: #### C BC ####[place] Kuzefxtaxo[address] [place], [place] [address]Dr. Chrissy Frazier Hematocrit (Bld) [Volume fraction] 48.3 % Normal 42.0-54.0 [facility] Comment on above: Performed By: #### C BC ####[place] Xdedbylbhf70[address] [place], [place] [address]Dr. Chrissy Freddie Hemoglobin (Bld) [Mass/Vol] 16.1 g/dL Normal 14.0-18.0 The [place] Comment on above: Performed By: #### C BC ####[place] Wlwdkxnkbg16[address] [place], [place] [address]Dr. Chrissy Frazier IG # 0.12 10e3/ul Critically high 0.00-0.03 [facility] Comment on above: Performed By: #### C BC ####[place] Pqsxncoeze850[address] [place], [place] [address]Dr. Chrissy Frazier IG % 0.9 % Critically high 0.0-0.5 The [facility] Comment on above: Performed By: #### C BC ####[place] Zzzyijjuja4[address] [place] [address]DrNancy Frazier LYMPH # 3.0 103/ul Normal 1.2-3.8 The [place] Comment on above: Performed By: #### C BC ####[place] Lxvuhhdpvu2667 [place] [address]Dr. Chrissy Frazier Lymphocytes/100 WBC (Bld) 22.3 % Normal 20.5-60.0 The [place] Comment on above: Performed By: #### C BC ####[place] Vhhqjzmhrz[address] [place], [place] [address]DrNancy Frazier MANUAL DIFF REQ NO Normal The [facility] Comment on above: Performed By: #### C BC ####[place] Ocilycmsnd[address] [place], [place] [address]DrNancy Frazier MCH (RBC) [Entitic mass] 28.6 pg Normal 25.9-34.0 The [place] Comment on above: Performed By: #### C BC ####[place] Fjsauxawxm[address] [place], [place] [address]DrNancy Frazier MCHC (RBC) [Mass/Vol] 33.3 g/dL Normal 29.9-35.2 The [place] Comment on above: Performed By: #### C BC ####[place] Ualxntqpyo[address] [place], [place] [address]DrNancy Frazier MCV (RBC) [Entitic vol] 85.9 fL Normal 80.0-94.0 The [place] Comment on above: Performed By: #### C BC ####[place] Oixqgjiphj[address] [place], [place] [address]DrNancy Frazier MONO # 0.8 103/ul Normal 0.3-0.8 The [place] Comment on above: Performed By: #### C BC ####[place] Oleeaagoyi7[address] [place], [place] [address]DrNancy Frazier Monocytes/100 WBC (Bld) 5.7 % Normal 1.7-12.0 The [place] Comment on above: Performed By: #### C BC ####[place] Qzpafirzqz3[address] [place] [address]Dr. Chrissy Frazier NEUT # 9.3 103/ul Critically high 1.4-6.5 The [facility] Comment on above: Performed By: #### C BC ####[place] Xchwymreop[address] [place], [place] [address]Dr. Chrissy Frazier Neutrophils/100 WBC (Bld) 70.1 % Normal 43.0-75.0 The [place] Comment on above: Performed By: #### C BC ####[place] Sldmxxlheg464[address] [place], [place] [address]Dr. Chrissy Frazier Platelet mean volume (Bld) [Entitic vol] 10.3 fL Normal 9.5-13.5 The [place] Comment on above: Performed By: #### C BC ####[place] Rqqnyntlrl08[address] [place], [place] [address]Dr. Chrissy Frazier PLT 461 103/ul Critically high 150-450 The [facility] Comment on above: Performed By: #### C BC ####[place] Woronlgkvu45[address] [place], [place] [address]Dr. Chrissy Frazier RBC 5.62 106/ul Normal 4.70-6.10 The [place] Comment on above: Performed By: #### C BC ####[place] Tqadinfgdu415[address] [place], [place] [address]Dr. Chrissy Frazier WBC 13.3 103/ul Critically high 4.0-11.[address] [facility] Comment on above: Performed By: #### C BC ####[place] Umdyunzwnh8[address] [place], [place] [address]Dr. Chrissy Frazier LIPASEon 04-04-2022 Lipase [Catalytic activity/Vol] 118.0 U/L Normal 73.0-393.0 The [place] Comment on above: Performed By: #### C MP, TERRENCE, LIPA ####[place] Xigxdcqcsq66[address] [place], [place] [address]Dr. Chrissy Frazier PROF 14(COMP METB)on 022 Albumin [Mass/Vol] 4.3 g/dL Normal 3.4-5.0 The [facility] Comment on above: Performed By: #### C MP, TERRENCE, LIPA ####[place] Hmajcdczjm90[address] [place] [address]Dr. Chrissy Frazier Albumin/Globulin [Mass ratio] 1.0 {ratio} Normal [facility] Comment on above: Performed By: #### C MP, TERRENCE, LIPA ####[place] Uirvkwmigo5[address] [place] [address]Dr. Chrissy Frazier ALP [Catalytic activity/Vol] 84 U/L Normal 46-116 [facility] Comment on above: Performed By: #### C MP, TERRENCE, LIPA ####[place] Pwjwznotux7938 [place] [address]Dr. Chrissy Frazier ALT [Catalytic activity/Vol] 81 U/L Critically high 16-63 [facility] Comment on above: Performed By: #### C MP, TERRENCE, LIPA ####[place] Hupzorhufu12[address] [place] [address]Dr. Chrissy Frazier Anion gap [Moles/Vol] 17.9 mmol/L Normal [facility] Comment on above: Performed By: #### C MP, TERRENCE, LIPA ####[place] Yvpbsvqnza8381 [place] [address]Dr. Chrissy Frazier AST [Catalytic activity/Vol] 25 U/L Normal 15-37 [facility] Comment on above: Performed By: #### C MP, TERRENCE, LIPA ####[place] Tbswbrsgbc5547 [place] [address]Dr. Chrissy Frazier Bilirubin [Mass/Vol] 0.5 mg/dL Normal 0.2-1.0 [facility] Comment on above: Performed By: #### C MP, TERRENCE, LIPA ####[place] Feicwxcdfu5924 [place] [address]Dr. Chrissy Frazier Calcium [Mass/Vol] 9.6 mg/dL Normal 8.5-10.1 The [facility] Comment on above: Performed By: #### C MP TERRENCE, LIPA ####[place] Quoaokyvhh27[address] [place] [address]Dr. Chrissy Frazier Chloride [Moles/Vol] 101 mmol/L Normal 98-107 [facility] Comment on above: Performed By: #### C MP, TERRENCE, LIPA ####[place] Rkrqhdqglt9568 [place] [address]Dr. Chrissy Frazier CO2 [Moles/Vol] 18.6 mmol/L Critically low 21.0-32.0 [facility] Comment on above: Performed By: #### C MANA TERRENCE, LIPA ####[place] Mxrncqmphn[address] [place], [place] [address]Dr. Chrissy Frazier Creatinine [Mass/Vol] 1.39 mg/dL Critically high 0.70-1.30 [facility] Comment on above: Performed By: #### C MANA TERRENCE, LIPA ####[place] Jmuctxcpxq[address] [place], [place] [address]Dr. Chrissy Frazier EGFR-AF HAITIAN >60 Normal >=60 [facility] Comment on above: Performed By: #### C MANA TERRENCE, LIPA ####[place] Skgfxdhxfk[address] [place], [place] [address]Dr. Chrissy Frazier EGFR-NON AF HAITIAN 59 mL/min/1.73m2 Critically low >=60 [facility] Comment on above: Performed By: #### C MP TERRENCE, LIPA ####[place] Fuugoybkgl5010 [place] [address]Dr. Chrissy Frazier Globulin (S) [Mass/Vol] 4.3 g/dL Normal [facility] Comment on above: Performed By: #### C MP TERRENCE, LIPA ####[place] Pnogbghaze[address] [place], [place] [address]Dr. Chrissy Frazier Glucose [Mass/Vol] 132 mg/dL Critically high 74-106 [facility] Comment on above: Performed By: #### C MP TERRENCE, LIPA ####[place] Fneqiacmov8169 [place] [address]Dr. Chrissy Frazier Potassium [Moles/Vol] 3.5 mmol/L Normal 3.5-5.1 [facility] Comment on above: Performed By: #### C TERRENCE ADAIR, LIPA ####[place] Kmvskaeihh18[address] [place] [address]Dr. Chrissy Frazier Protein [Mass/Vol] 8.6 g/dL Critically high 6.4-8.2 [facility] Comment on above: Performed By: #### C MP, TERRENCE, LIPA ####[place] Mkuvnlxblo8208 [place] [address]Dr. Chrissy Frazier Sodium [Moles/Vol] 134 mmol/L Critically low 136-145 [facility] Comment on above: Performed By: #### C MP, TERRENCE, LIPA ####[place] Mksfexfrgg3234 [place] [address]Dr. Chrissy Frazier Urea nitrogen [Mass/Vol] 8.0 mg/dL Normal 7.0-18.0 [facility] Comment on above: Performed By: #### C MANA TERRENCE, LIPA ####[place] Bdqqpiaial1212 [place] [address]Dr. Chrissy Frazier Urea nitrogen/Creatinine [Mass ratio] 5.8 mg/mg Normal [facility] Comment on above: Performed By: #### C MP, TERRENCE, LIPA ####[place] Hrawrpqdfp15[address] [place] [address]Dr. Chrissy Frazier XR ABD FLAT UP_PA Enoch 04-04 XR ABD FLAT UP_PA CH Normal [facility] AMMONIAon 03-31-2022 Ammonia (P) [Moles/Vol] 19 umol/L Normal 11-32 [facility] Comment on above: Performed By: #### A MM ####[place] K[address]qwdavrz[address] [place], [place] [address]Dr. Chrissy Frazier CBC AUTO DIFFon 03-31-2022 BASO # 0.1 103/ul Normal 0.0-0.1 [facility] Comment on above: Performed By: #### C BC ####[place] Bocnmdpntu37[address] [place] [id number]. Chrissy Frazier Basophils/100 WBC (Bld) 0.5 % Normal 0.2-2.0 The [place] Comment on above: Performed By: #### C BC ####[place] Hfbqxsnblf7266 [place] [phone]. Chrissy Frazier EO # 0.2 103/ul Normal 0.0-0.7 The [place] Comment on above: Performed By: #### C BC ####[place] L[address] [place], [place] [address]Dr. Chrissy Frazier Eosinophils/100 WBC (Bld) 1.6 % Normal 0.9-7.0 The [place] Comment on above: Performed By: #### C BC ####[place] Sohxlmfrhk[address] [place], [place] [address]Dr. Chrissy Frazier Erythrocyte distribution width (RBC) [Ratio] 13.2 % Normal 11.0-15.0 [facility] Comment on above: Performed By: #### C BC ####[place] Pczqmokjso[address] [place], [place] [address]Dr. Chrissy Frazier Hematocrit (Bld) [Volume fraction] 42.1 % Normal 42.0-54.0 [facility] Comment on above: Performed By: #### C BC ####[place] Syqrnjhicq3381 [place] [phone]. Chrissy Frazier Hemoglobin (Bld) [Mass/Vol] 14.3 g/dL Normal 14.0-18.0 The [place] Comment on above: Performed By: #### C BC ####[place] Cowvvvtgti3954 [place] [phone]. Chrissy Frazier IG # 0.05 10e3/ul Critically high 0.00-0.03 [facility] Comment on above: Performed By: #### C BC ####[place] Iuwuqpebuy5695 [place] [phone]. Chrissy Frazier IG % 0.5 % Normal 0.0-0.5 The [place] Comment on above: Performed By: #### C BC ####[place] Cwvutwnzaf8513 [place] [phone]. Chrissy Frazier LYMPH # 2.9 103/ul Normal 1.2-3.8 The [place] Comment on above: Performed By: #### C BC ####[place] Zcjojemcij7453 [place], [place] [address]Bs. Chrissy Frazier Lymphocytes/100 WBC (Bld) 25.7 % Normal 20.5-60.0 The [place] Comment on above: Performed By: #### C BC ####[place] Jcaxdlmwtk6425 [place] [phone]. Chrissy Frazier MANUAL DIFF REQ NO Normal The [facility] Comment on above: Performed By: #### C BC ####[place] Pkgogkukeu2793 [place] [phone]. Chrissy Frazier MCH (RBC) [Entitic mass] 29.2 pg Normal 25.9-34.0 The [place] Comment on above: Performed By: #### C BC ####[place] Tsarzbuenv5216 [place] [phone]. Chrissy Frazier MCHC (RBC) [Mass/Vol] 34.0 g/dL Normal 29.9-35.2 The [place] Comment on above: Performed By: #### C BC ####[place] Pgsghtqbnm0707 [place] [phone]. Chrissy Frazier MCV (RBC) [Entitic vol] 85.9 fL Normal 80.0-94.0 The [place] Comment on above: Performed By: #### C BC ####[place] Qgblrwkoif1695 [place] [phone]. Chrissy Frazier MONO # 1.0 103/ul Critically high 0.3-0.8 The [facility] Comment on above: Performed By: #### C BC ####[place] Gvoimrtsbn5572 [place] [phone]. Chrissy Freddie Monocytes/100 WBC (Bld) 8.6 % Normal 1.7-12.0 The [place] Comment on above: Performed By: #### C BC ####[place] Mejjwupxor9780 [place] [phone]. Chrissy Frazier NEUT # 7.0 103/ul Critically high 1.4-6.5 The [facility] Comment on above: Performed By: #### C BC ####[place] Bgycoitxie1604 [place] [phone]. Chrissy Frazier Neutrophils/100 WBC (Bld) 63.1 % Normal 43.0-75.0 The [place] Comment on above: Performed By: #### C BC ####[place] Ljpzqimwar7581 [place] [phone]. Chrissy Frazier Platelet mean volume (Bld) [Entitic vol] 10.4 fL Normal 9.5-13.5 The [place] Comment on above: Performed By: #### C BC ####[place] Ohpggrxaye9644 [place] [phone]. Tishrowan Freddie PLT 308 103/ul Normal 150-450 The [place] Comment on above: Performed By: #### C BC ####[place] Feqacjrlxf0606 [place] [phone]. Chrissy Frazier RBC 4.90 106/ul Normal 4.70-6.10 The [place] Comment on above: Performed By: #### C BC ####[place] Dcrrtxmtnn7996 [place] [phone]. Chrissy Freddie WBC 11.1 103/ul Critically high 4.0-11.[address] [facility] Comment on above: Performed By: #### C BC ####[place] Yzmtbobrex0713 [place] [phone]. Chrissy Frazier PROF 14(COMP METB)on 022 Albumin [Mass/Vol] 3.5 g/dL Normal 3.4-5.0 The [facility] Comment on above: Performed By: #### C MP ####[place] Ocuhfeizul3445 [place] [phone]. Chrissy Frazier Albumin/Globulin [Mass ratio] 0.9 {ratio} Normal The [place] Comment on above: Performed By: #### C MP ####[place] Rbpyplutvy3867 [place] [phone]. Chrissy Frazier ALP [Catalytic activity/Vol] 68 U/L Normal 46-116 [facility] Comment on above: Performed By: #### C MP ####[place] Zbjvadusxb6472 [place] [phone]. Chrissy Frazier ALT [Catalytic activity/Vol] 113 U/L Critically high 16-63 The [place] Comment on above: Performed By: #### C MP ####[place] Jrmiktxwoa3423 [place] [address]Dr. Chrissy Frazier Anion gap [Moles/Vol] 14.0 mmol/L Normal [facility] Comment on above: Performed By: #### C MP ####[place] Uphkdaeatc9289 [place] [address]Dr. Chrissy Frazier AST [Catalytic activity/Vol] 31 U/L Normal 15-37 [facility] Comment on above: Performed By: #### C MP ####[place] Zhysmglnix[address] [place], [place] [address]Dr. Chrissy Frazier Bilirubin [Mass/Vol] 0.6 mg/dL Normal 0.2-1.0 [facility] Comment on above: Performed By: #### C MP ####[place] Gxhkvjnznv[address] [place], [place] [address]Dr. Chrissy Frazier Calcium [Mass/Vol] 8.4 mg/dL Critically low 8.5-10.1 Th [facility] Comment on above: Performed By: #### C MP ####[place] Gmhsvzktxt8818 [place] [address]Dr. Chrissy Frazier Chloride [Moles/Vol] 101 mmol/L Normal 98-107 [facility] Comment on above: Performed By: #### C MP ####[place] Yghdfucqst3888 [place] [address]Dr. Chrissy Frazier CO2 [Moles/Vol] 24.2 mmol/L Normal 21.0-32.[address] [facility] Comment on above: Performed By: #### C MP ####[place] Aauisqrzay3500 [place] [address]Dr. Chrissy Freddie Creatinine [Mass/Vol] 1.15 mg/dL Normal 0.70-1.30 The [place] Comment on above: Performed By: #### C MP ####[place] Viyqzfhnrj2952 [place] [address]Dr. Chrissy Freddie EGFR-AF HAITIAN >60 Normal >=[address] [facility] Comment on above: Performed By: #### C MP ####[place] Uztgwbawsq1207 [place] [address]Dr. Chrissy Freddie EGFR-NON AF HAITIAN >60 Normal >=60 The [place] Comment on above: Performed By: #### C MP ####[place] Oyjaujpmld97[address] [place], [place] [address]Dr. Chrissy Frazier Globulin (S) [Mass/Vol] 3.8 g/dL Normal [facility] Comment on above: Performed By: #### C MP ####[place] Slnwadllsj[address] [place], [place] [address]Dr. Tishrowan Frazier Glucose [Mass/Vol] 100 mg/dL Normal 74-106 [facility] Comment on above: Performed By: #### C MP ####[place] Nlyebnprjj590[address] [place], [place] [address]Dr. Chrissy Freddie Potassium [Moles/Vol] 3.2 mmol/L Critically low 3.5-5.1 The [place] Comment on above: Performed By: #### C MP ####[place] Jncozocztb[address] [place], [place] [address]Dr. Chrissy Frazier Protein [Mass/Vol] 7.3 g/dL Normal 6.4-8.2 [facility] Comment on above: Performed By: #### C MP ####[place] Tzvaohrlmc[address] [place], [place] [address]Dr. Tishrowan Freddie Sodium [Moles/Vol] 136 mmol/L Normal 136-145 [facility] Comment on above: Performed By: #### C MP ####[place] Cpjtzvsyqz01[address] [place], [place] [address]Dr. Chrissy Frazier Urea nitrogen [Mass/Vol] 13.0 mg/dL Normal 7.0-18.0 The [place] Comment on above: Performed By: #### C MP ####[place] Idikyseoiw80[address] [place], [place] [address]Dr. Chrissy Frazier Urea nitrogen/Creatinine [Mass ratio] 11.3 mg/mg Normal The [place] Comment on above: Performed By: #### C MP ####[place] Zlmsmzswaz365[address] [place], [place] [address]Dr. Chrissy Frazier AMMONIAon 03-30-2022 Ammonia (P) [Mass/Vol] ug/dL Critically low 11-32 The [place] Comment on above: Performed By: #### A MM ####[place] Ivntjfdhmk50[address] [place], [place] [address]Dr. Chrissy Frazier CBC AUTO DIFFon 03-30-2022 BASO # 0.1 103/ul Normal 0.0-0.1 The [place] Comment on above: Performed By: #### C BC ####[place] Vqxkkrnfzd[address] [place], [place] [address]Dr. Chrissy Frazier Basophils/100 WBC (Bld) 0.5 % Normal 0.2-2.0 The [place] Comment on above: Performed By: #### C BC ####[place] Xcjlkvnysk[address] [place], [place] [address]Dr. Chrissy Frazier EO # 0.1 103/ul Normal 0.0-0.7 The [place] Comment on above: Performed By: #### C BC ####[place] Cfaotphmku[address] [place], [place] [address]Dr. Chrissy Frazier Eosinophils/100 WBC (Bld) 1.1 % Normal 0.9-7.0 The [place] Comment on above: Performed By: #### C BC ####[place] Fbpossxmja[address] [place], [place] [address]Dr. Chrissy Frazier Erythrocyte distribution width (RBC) [Ratio] 13.4 % Normal 11.0-15.0 The [place] Comment on above: Performed By: #### C BC ####[place] Mzuewrhfdw3736 [place] [address]Dr. Chrissy Frazier Hematocrit (Bld) [Volume fraction] 45.8 % Normal 42.0-54.0 [facility] Comment on above: Performed By: #### C BC ####[place] Bhrdwbfydu9367 [place] [address]Dr. Tishrowan Freddie Hemoglobin (Bld) [Mass/Vol] 14.9 g/dL Normal 14.0-18.0 The [place] Comment on above: Performed By: #### C BC ####[place] Yhzfhitlir4855 [place] [address]Dr. Chrissy Frazier IG # 0.05 10e3/ul Critically high 0.00-0.03 [facility] Comment on above: Performed By: #### C BC ####[place] Uxljbkufsv5346 [place] [address]Dr. Chrissy Frazier IG % 0.5 % Normal 0.0-0.5 [facility] Comment on above: Performed By: #### C BC ####[place] Zssvkupthg2090 [place] [address]Dr. Chrissy Frazier LYMPH # 3.0 103/ul Normal 1.2-3.8 [facility] Comment on above: Performed By: #### C BC ####[place] Crnhclanov9243 [place] [address]Dr. Chrissy Frazier Lymphocytes/100 WBC (Bld) 30.2 % Normal 20.5-60.0 [facility] Comment on above: Performed By: #### C BC ####[place] Lojtksvwlw2813 [place] [address]Dr. Chrissy Frazier MANUAL DIFF REQ NO Normal The [facility] Comment on above: Performed By: #### C BC ####[place] Apuwmnuvri[address] [place], [place] [address]Dr. Chrissy Frazier MCH (RBC) [Entitic mass] 28.4 pg Normal 25.9-34.0 [facility] Comment on above: Performed By: #### C BC ####[place] Kgokllegqe4237 [place] [phone]. Chrissy Frazier MCHC (RBC) [Mass/Vol] 32.5 g/dL Normal 29.9-35.2 The [place] Comment on above: Performed By: #### C BC ####[place] Yburgslvvj6330 [place] [phone]. Chrissy Frazier MCV (RBC) [Entitic vol] 87.4 fL Normal 80.0-94.0 The [place] Comment on above: Performed By: #### C BC ####[place] Xadbxhgklw1604 [place] [id number]. Chrissy Frazier MONO # 0.8 103/ul Normal 0.3-0.8 The [place] Comment on above: Performed By: #### C BC ####[facility] Brjzrcores[address] [place], [place] [address]Dr. Chrissy Frazier Monocytes/100 WBC (Bld) 7.9 % Normal 1.7-12.0 [facility] Comment on above: Performed By: #### C BC ####[facility] Dcmumlpywn[address] [place], [place] [id number]. Chrissy Frazier NEUT # 5.9 103/ul Normal 1.4-6.5 [facility] Comment on above: Performed By: #### C BC ####[facility] Xwjcssisuo740[address] [place], [place] [address]Dr. Chrissy Frazier Neutrophils/100 WBC (Bld) 59.8 % Normal 43.0-75.0 [facility] Comment on above: Performed By: #### C BC ####[facility] Sovdiqdaxq1765 [place] [id number]. Chrissy Frazier Platelet mean volume (Bld) [Entitic vol] 10.1 fL Normal 9.5-13.5 [facility] Comment on above: Performed By: #### C BC ####[facility] Oxffhveioa[address] [place], [place] [address]Dr. Chrissy Frazier PLT 320 103/ul Normal 150-450 [facility] Comment on above: Performed By: #### C BC ####[facility] Dvokxapzpk7648 [place] [address]Dr. Chrissy Frazier RBC 5.24 106/ul Normal 4.70-6.10 [facility] Comment on above: Performed By: #### C BC ####[facility] Tfmqfndzjm8864 [place] [address]Dr. Chrissy Freddie WBC 9.9 103/ul Normal 4.0-11.0 [facility] Comment on above: Performed By: #### C BC ####[facility] Sjnpuetjbz6441 [place] [address]Dr. Chrissy Frazier PROF 14(COMP METB)on 022 Albumin [Mass/Vol] 3.9 g/dL Normal 3.4-5.0 [facility] Comment on above: Performed By: #### C MP ####[facility] Aogwxgvxpa813[address] [place], [place] [address]Dr. Chrissy Frazier Albumin/Globulin [Mass ratio] 1.1 {ratio} Normal [facility] Comment on above: Performed By: #### C MP ####[facility] Lumddurkyq[address] [place], [place] [address]Dr. Chrissy Freddie ALP [Catalytic activity/Vol] 88 U/L Normal 46-116 [facility] Comment on above: Performed By: #### C MP ####[facility] Lxvqydebfl[address] [place], [place] [address]Dr. Chrissy Frazier ALT [Catalytic activity/Vol] 161 U/L Critically high 16-63 [facility] Comment on above: Performed By: #### C MP ####[facility] Iznzztohsj15[address] [place], [place] [address]Dr. Chrissy Freddie Anion gap [Moles/Vol] 12.3 mmol/L Normal [facility] Comment on above: Performed By: #### C MP ####[facility] Candxxavos64[address] [place], [place] [address]Dr. Tishrowan Frazier AST [Catalytic activity/Vol] 64 U/L Critically high 15-37 [facility] Comment on above: Performed By: #### C MP ####[facility] Qnmjpcwdws[address] [place], [place] [address]Dr. Chrissy Frazier Bilirubin [Mass/Vol] 0.8 mg/dL Normal 0.2-1.0 [facility] Comment on above: Performed By: #### C MP ####[facility] Scldfxauee9033 [place] [address]Dr. Chrissy Frazier Calcium [Mass/Vol] 8.4 mg/dL Critically low 8.5-10.1 [facility] Comment on above: Performed By: #### C MP ####[facility] Tzsmrfxolh6614 [place] [address]Dr. Chrissy Frazier Chloride [Moles/Vol] 103 mmol/L Normal 98-107 [facility] Comment on above: Performed By: #### C MP ####[facility] Dnxrnwfjeu6951 [place] [address]Dr. Chrissy Frazier CO2 [Moles/Vol] 26.5 mmol/L Normal 21.0-32.[address] [facility] Comment on above: Performed By: #### C MP ####[facility] Egksqfihob[address] [place], [place] [address]Dr. Chrissy Frazier Creatinine [Mass/Vol] 1.24 mg/dL Normal 0.70-1.30 [facility] Comment on above: Performed By: #### C MP ####[facility] Fvyrujsmzd4514 [place] [address]Dr. Chrissy Frazier EGFR-AF HAITIAN >60 Normal >=[address] [facility] Comment on above: Performed By: #### C MP ####[facility] Nqfqeeokxm9172 [place] [address]Dr. Chrissy Freddie EGFR-NON AF HAITIAN >60 Normal >=60 [facility] Comment on above: Performed By: #### C MP ####[facility] Nakogwihwt9[address] [place], [place] [address]Dr. Chrissy Freddie Globulin (S) [Mass/Vol] 3.7 g/dL Normal [facility] Comment on above: Performed By: #### C MP ####[facility] Udnkonihgj245[address] [place], [place] [address]Dr. Yirowan Frazier Glucose [Mass/Vol] 108 mg/dL Critically high 74-106 [facility] Comment on above: Performed By: #### C MP ####[facility] Ewrvcngmea5439 [place] [address]Dr. Chrissy Frazier Potassium [Moles/Vol] 3.8 mmol/L Normal 3.5-5.1 [facility] Comment on above: Performed By: #### C MP ####[facility] Plxnkfgaep127[address] [place], [place] [address]Dr. Chrissy Frazier Protein [Mass/Vol] 7.6 g/dL Normal 6.4-8.2 [facility] Comment on above: Performed By: #### C MP ####[facility] Kunaewbjea596[address] [place], [place] [address]Dr. Chrissy Frazier Sodium [Moles/Vol] 138 mmol/L Normal 136-145 [facility] Comment on above: Performed By: #### C MP ####[facility] Ykesvmbewb18[address] [place], [place] [address]Dr. Chrissy Frazier Urea nitrogen [Mass/Vol] 12.0 mg/dL Normal 7.0-18.0 [facility] Comment on above: Performed By: #### C MP ####[facility] Katgtoqjmd[address] [place], [place] [address]Dr. Chrissy Frazier Urea nitrogen/Creatinine [Mass ratio] 9.7 mg/mg Normal [facility] Comment on above: Performed By: #### C MP ####[facility] Tgskzndjqz457[address] [place], [place] [address]Dr. Chrissy Frazier AMMONIAon 03-29-2022 Ammonia (P) [Moles/Vol] 27 umol/L Normal 11-32 [facility] Comment on above: Performed By: #### A MM ####[facility] Irhewymzcg443[address] [place], [place] [address]Dr. Chrissy Frazier AMYLASEon 03-29-2022 Amylase [Catalytic activity/Vol] 29 U/L Normal 25-115 [facility] Comment on above: Performed By: #### L IPA, TERRENCE ####[facility] Ayjcwtebcx[address] [place], [place] [address]Dr. Chrissy Frazier CBC AUTO DIFFon 03-29-2022 BASO # 0.0 103/ul Normal 0.0-0.1 [facility] Comment on above: Performed By: #### C BC ####[facility] Nezqgwafco1224 [place] [address]Dr. Chrissy Frazier Basophils/100 WBC (Bld) 0.2 % Normal 0.2-2.0 [facility] Comment on above: Performed By: #### C BC ####[facility] Fppegldccg[address] [place], [place] [address]Dr. Chrissy Frazier EO # 0.0 103/ul Normal 0.0-0.7 [facility] Comment on above: Performed By: #### C BC ####[facility] Ubnzhekdun087[address] [place], [place] [address]Dr. Tishrowan Frazier Eosinophils/100 WBC (Bld) 0.4 % Critically low 0.9-7.0 [facility] Comment on above: Performed By: #### C BC ####[facility] Iifukadqsq269[address] [place], [place] [address]Dr. Chrissy Frazier Erythrocyte distribution width (RBC) [Ratio] 13.6 % Normal 11.0-15.0 [facility] Comment on above: Performed By: #### C BC ####[facility] Ewoclpdyfy8806 [place] [address]Dr. Chrissy Frazier Hematocrit (Bld) [Volume fraction] 45.2 % Normal 42.0-54.0 [facility] Comment on above: Performed By: #### C BC ####[facility] Bptomcgvnt6[address] [place], [place] [address]Dr. Chrissy Frazier Hemoglobin (Bld) [Mass/Vol] 14.8 g/dL Normal 14.0-18.0 [facility] Comment on above: Performed By: #### C BC ####[facility] Khwdsgrcfs[address] [place], [place] [address]Dr. Chrissy Frazier IG # 0.03 10e3/ul Normal 0.00-0.03 [facility] Comment on above: Performed By: #### C BC ####[facility] Fcpqibuone2643 [place] [address]Dr. Chrissy Frazier IG % 0.3 % Normal 0.0-0.5 [facility] Comment on above: Performed By: #### C BC ####[facility] Srlgtzekmu4120 [place] [address]Dr. Chrissy Frazier LYMPH # 2.0 103/ul Normal 1.2-3.8 [facility] Comment on above: Performed By: #### C BC ####[facility] Hpqokonzod9792 [place] [address]Dr. Chrissy Frazier Lymphocytes/100 WBC (Bld) 18.3 % Critically low 20.5-60.0 [facility] Comment on above: Performed By: #### C BC ####[facility] Vciibupkte0159 [place] [address]Dr. Chrissy Frazier MANUAL DIFF REQ NO Normal The [facility] Comment on above: Performed By: #### C BC ####[facility] Gbgxqhhxby2217 [place] [id number]. Chrissy Frazier MCH (RBC) [Entitic mass] 28.5 pg Normal 25.9-34.0 [facility] Comment on above: Performed By: #### C BC ####[facility] Hholsmubgk8644 [place] [id number]. Chrissy Frazier MCHC (RBC) [Mass/Vol] 32.7 g/dL Normal 29.9-35.2 [facility] Comment on above: Performed By: #### C BC ####[facility] Fdqimlaqwq98[address] [place], [place] [address]Dr. Chrissy Frazier MCV (RBC) [Entitic vol] 87.1 fL Normal 80.0-94.0 [facility] Comment on above: Performed By: #### C BC ####[facility] Cenwhpnhjj2215 [place] [address]Dr. Chrissy Freddie MONO # 0.9 103/ul Critically high 0.3-0.8 The [facility] Comment on above: Performed By: #### C BC ####[facility] Fyuyaiexqn7819 [place] [address]Dr. Chrissy Frazier Monocytes/100 WBC (Bld) 8.6 % Normal 1.7-12.0 [facility] Comment on above: Performed By: #### C BC ####[facility] Uixuffzlum8681 [place] [address]Dr. Chrissy Frazier NEUT # 7.8 103/ul Critically high 1.4-6.5 The [facility] Comment on above: Performed By: #### C BC ####[facility] Eeqcqrxlzk2720 [place] [address]Dr. Chrissy Frazier Neutrophils/100 WBC (Bld) 72.2 % Normal 43.0-75.0 [facility] Comment on above: Performed By: #### C BC ####[facility] Fkbccadpta6317 [place] [id number]. Chrissy Frazier Platelet mean volume (Bld) [Entitic vol] 10.1 fL Normal 9.5-13.5 [facility] Comment on above: Performed By: #### C BC ####[facility] Ubuudkrxyd0752 [place] [id number]. Chrissy Frazier PLT 329 103/ul Normal 150-450 [facility] Comment on above: Performed By: #### C BC ####[facility] Hkohtuenhj2334 [place] [address]Dr. Chrissy Frazier RBC 5.19 106/ul Normal 4.70-6.10 [facility] Comment on above: Performed By: #### C BC ####[facility] Wwxmscpjec4577 [place] [address]Dr. Chrissy Frazier WBC 10.8 103/ul Normal 4.0-11.0 [facility] Comment on above: Performed By: #### C BC ####[facility] Qciykyyhxq0969 [place] [address]Dr. Chrissy Frazier LIPASEon 03-29-2022 Lipase [Catalytic activity/Vol] 58.0 U/L Critically low 73.0-393.0 [facility] Comment on above: Performed By: #### L IPA, TERRENCE ####[facility] Gwuhzhwfmj0519 [place] [address]Dr. Chrissy Frazier NM HEPATOBILIARY SCAN W EFon 03-29-2022 NM HEPATOBILIARY SCAN W EF Normal [facility] PROF 14(COMP METB)on 022 Albumin [Mass/Vol] 3.8 g/dL Normal 3.4-5.0 [facility] Comment on above: Performed By: #### C MP ####[facility] Lizbcvnhof4932 [place] [address]Dr. Chrissy Frazier Albumin/Globulin [Mass ratio] 1.0 {ratio} Normal [facility] Comment on above: Performed By: #### C MP ####[facility] Omimrijxgq2249 [place] [address]Dr. Chrissy Frazier ALP [Catalytic activity/Vol] 69 U/L Normal 46-116 [facility] Comment on above: Performed By: #### C MP ####[facility] Jkbbyshgma8116 [place] [address]Dr. Chrissy Frazier ALT [Catalytic activity/Vol] 117 U/L Critically high 16-63 [facility] Comment on above: Performed By: #### C MP ####[facility] Tkotbfokwk[address] [place], [place] [address]Dr. Chrissy Frazier Anion gap [Moles/Vol] 16.7 mmol/L Normal [facility] Comment on above: Performed By: #### C MP ####[facility] Vtmabskmlb[address] [place], [place] [address]Dr. Chrissy Frazier AST [Catalytic activity/Vol] 77 U/L Critically high 15-37 [facility] Comment on above: Performed By: #### C MP ####[facility] Tfcdffhfjj[address] [place], [place] [address]Dr. Chrissy Frazier Bilirubin [Mass/Vol] 1.5 mg/dL Critically high 0.2-1.0 [facility] Comment on above: Performed By: #### C MP ####[facility] Aoygrmfncp[address] [place], [place] [address]Dr. Chrissy Frazier Calcium [Mass/Vol] 8.1 mg/dL Critically low 8.5-10.1 [facility] Comment on above: Performed By: #### C MP ####[facility] Egumeltmnf0999 [place] [address]Dr. Chrissy Frazier Chloride [Moles/Vol] 101 mmol/L Normal 98-107 [facility] Comment on above: Performed By: #### C MP ####[facility] Oaeibeqonw6320 [place] [address]Dr. Chrissy Frazier CO2 [Moles/Vol] 24.5 mmol/L Normal 21.0-32.[address] [facility] Comment on above: Performed By: #### C MP ####[facility] Luursfdfqr66[address] [place], [place] [address]Dr. Chrissy Frazier Creatinine [Mass/Vol] 1.17 mg/dL Normal 0.70-1.30 [facility] Comment on above: Performed By: #### C MP ####[facility] Uhkzkfbuws[address] [place], [place] [address]Dr. Chrissy Frazier EGFR-AF HAITIAN >60 Normal >=60 [facility] Comment on above: Performed By: #### C MP ####[facility] Zqyfiiipxu9[address] [place], [place] [address]Dr. Chrissy Freddie EGFR-NON AF HAITIAN >60 Normal >=60 [facility] Comment on above: Performed By: #### C MP ####[facility] Fshkcupmmt5694 [place] [address]Dr. Chrissy Freddie Globulin (S) [Mass/Vol] 3.9 g/dL Normal [facility] Comment on above: Performed By: #### C MP ####[facility] Jkrpdbaupr9406 [place] [address]Dr. Tishrowan Freddie Glucose [Mass/Vol] 104 mg/dL Normal 74-106 [facility] Comment on above: Performed By: #### C MP ####[facility] Fffnwbfeya0167 [place] [address]Dr. Chrissy Frazier Potassium [Moles/Vol] 3.2 mmol/L Critically low 3.5-5.1 [facility] Comment on above: Performed By: #### C MP ####[facility] Wctykmyqil8005 [place] [address]Dr. Chrissy Freddie Protein [Mass/Vol] 7.7 g/dL Normal 6.4-8.2 [facility] Comment on above: Performed By: #### C MP ####[facility] Erdciufhwr6958 [place] [address]Dr. Chrissy Frazier Sodium [Moles/Vol] 139 mmol/L Normal 136-145 [facility] Comment on above: Performed By: #### C MP ####[facility] Rhkskebnem02[address] [place], [place] [address]Dr. Tishrowan Freddie Urea nitrogen [Mass/Vol] 11.0 mg/dL Normal 7.0-18.0 [facility] Comment on above: Performed By: #### C MP ####[facility] Uixfuoyyaf937[address] [place], [place] [address]Dr. Chrissy Frazier Urea nitrogen/Creatinine [Mass ratio] 9.4 mg/mg Normal [facility] Comment on above: Performed By: #### C MP ####[facility] Ifhrfggosg509[address] [place], [place] [address]Dr. Chrissy Frazier US SINGLE QUAD RT UPPERon US SINGLE QUAD RT UPPER Normal [facility] AMMONIAon 03-28-2022 Ammonia (P) [Moles/Vol] 12 umol/L Normal 11-32 [facility] Comment on above: Performed By: #### A MM ####[facility] Rezkxezlsb9[address] [place], [place] [address]Dr. Chrissy Frazier CBC AUTO DIFFon 03-28-2022 BASO # 0.0 103/ul Normal 0.0-0.1 [facility] Comment on above: Performed By: #### C BC ####[facility] Yfkkfkghnx[address] [place], [place] [address]Dr. Chrissy Frazier Basophils/100 WBC (Bld) 0.1 % Critically low 0.2-2.0 [facility] Comment on above: Performed By: #### C BC ####[facility] Ccdaxbqukn8504 [place] [id number]. Chrissy Frazier EO # 0.0 103/ul Normal 0.0-0.7 [facility] Comment on above: Performed By: #### C BC ####[facility] Fdznmizhwo9923 [place] [address]Dr. Chrissy Frazier Eosinophils/100 WBC (Bld) 0.0 % Critically low 0.9-7.0 [facility] Comment on above: Performed By: #### C BC ####[facility] Mjmtmnvfxi[address] [place], [place] [address]Dr. Chrissy Frazier Erythrocyte distribution width (RBC) [Ratio] 14.0 % Normal 11.0-15.0 [facility] Comment on above: Performed By: #### C BC ####[facility] Wgavydbowp[address] [place], [place] [address]Dr. Chrissy Frazier Hematocrit (Bld) [Volume fraction] 44.2 % Normal 42.0-54.0 [facility] Comment on above: Performed By: #### C BC ####[facility] Vvawlrazry[address] [place], [place] [address]Dr. Chrissy Frazier Hemoglobin (Bld) [Mass/Vol] 14.7 g/dL Normal 14.0-18.0 [facility] Comment on above: Performed By: #### C BC ####[facility] Uzwszldnai39[address] [place], [place] [address]Dr. Chrissy Frazier IG # 0.10 10e3/ul Critically high 0.00-0.03 The [facility] Comment on above: Performed By: #### C BC ####[facility] Wdilcmyqzq8[address] [place], [place] [address]Dr. Chrissy Frazier IG % 0.5 % Normal 0.0-0.5 [facility] Comment on above: Performed By: #### C BC ####[facility] Pvzshygfuu71[address] [place], [place] [address]Dr. Chrissy Frazier LYMPH # 2.6 103/ul Normal 1.2-3.8 [facility] Comment on above: Performed By: #### C BC ####[facility] Ckymtgyehm3020 [place] [id number]. Chrissy Freddie Lymphocytes/100 WBC (Bld) 13.8 % Critically low 20.5-60.0 [facility] Comment on above: Performed By: #### C BC ####[facility] Isswyucbwf3269 [place] [address]Dr. Tishrowan Frazier MANUAL DIFF REQ NO Normal The [facility] Comment on above: Performed By: #### C BC ####[facility] Hlprduieic5740 [place] [id number]. Tishrowan Frazier MCH (RBC) [Entitic mass] 29.0 pg Normal 25.9-34.0 [facility] Comment on above: Performed By: #### C BC ####[facility] Tqdtccjnxy8560 [place] [address]Dr. Chrissy Frazier MCHC (RBC) [Mass/Vol] 33.3 g/dL Normal 29.9-35.2 [facility] Comment on above: Performed By: #### C BC ####[facility] Asgaumujhm1558 [place] [address]Dr. Tishrowan Frazier MCV (RBC) [Entitic vol] 87.2 fL Normal 80.0-94.0 [facility] Comment on above: Performed By: #### C BC ####[facility] Blehzgbhdc7357 [place] [address]Dr. Chrissy Frazier MONO # 1.1 103/ul Critically high 0.3-0.8 The [facility] Comment on above: Performed By: #### C BC ####[facility] Wwvwwqhxto7117 [place] [address]Dr. Chrissy Frazier Monocytes/100 WBC (Bld) 5.9 % Normal 1.7-12.0 [facility] Comment on above: Performed By: #### C BC ####[facility] Xxxgdosyla[address] [place], [place] [address]Dr. Chrissy Frazier NEUT # 15.1 103/ul Critically high 1.4-6.[address] [facility] Comment on above: Performed By: #### C BC ####[facility] Lghmwnxzbj7091 [place] [address]Dr. Chrissy Freddie Neutrophils/100 WBC (Bld) 79.7 % Critically high 43.0-75.0 [facility] Comment on above: Performed By: #### C BC ####[facility] Wwlxemctpc8582 [place] [id number]. Chrissy Frazier Platelet mean volume (Bld) [Entitic vol] 10.3 fL Normal 9.5-13.5 [facility] Comment on above: Performed By: #### C BC ####[facility] Gjrggujapf5531 [place] [address]Dr. Chrissy Frazier PLT 358 103/ul Normal 150-450 [facility] Comment on above: Performed By: #### C BC ####[facility] Wjkmuofjkp2811 [place] [address]Dr. Chrissy Frazier RBC 5.07 106/ul Normal 4.70-6.10 [facility] Comment on above: Performed By: #### C BC ####[facility] Gaqhjbxsyg5954 [place] [address]Dr. Tishrowan Freddie WBC 18.9 103/ul Critically high 4.0-11.[address] [facility] Comment on above: Performed By: #### C BC ####[facility] Sesuvszghc6314 [place] [address]Dr. Chrissy Frazier PROF 14(COMP METB)on 022 Albumin [Mass/Vol] 3.9 g/dL Normal 3.4-5.0 [facility] Comment on above: Performed By: #### C MP ####[facility] Dlxfsgyzhk1670 [place] [id number]. Chrissy Frazier Albumin/Globulin [Mass ratio] 1.1 {ratio} Normal [facility] Comment on above: Performed By: #### C MP ####[facility] Ivgaxoecye7998 [place] [phone]. Tishrowan Freddie ALP [Catalytic activity/Vol] 65 U/L Normal 46-116 [facility] Comment on above: Performed By: #### C MP ####[facility] Yzygkunkqx4951 [place] [address]Dr. Chrissy Frazier ALT [Catalytic activity/Vol] 46 U/L Normal 16-63 [facility] Comment on above: Performed By: #### C MP ####[facility] Iaatamkfbt8785 [place], [place] [address]Lf. Chrissy Frazier Anion gap [Moles/Vol] 13.2 mmol/L Normal [facility] Comment on above: Performed By: #### C MP ####[facility] Txivkhxkwm2789 [place] [phone]. Chrissy Frazier AST [Catalytic activity/Vol] 33 U/L Normal 15-37 [facility] Comment on above: Performed By: #### C MP ####[facility] Zenssytguf9288 [place] [address]Dr. Chrissy Frazier Bilirubin [Mass/Vol] 0.8 mg/dL Normal 0.2-1.0 [facility] Comment on above: Performed By: #### C MP ####[facility] Odxpnwiexr9760 [place] [phone]. Chrissy Frazier Calcium [Mass/Vol] 8.1 mg/dL Critically low 8.5-10.1 Th [facility] Comment on above: Performed By: #### C MP ####[facility] Dmbzbaaroz7116 [place] [phone]. Chrissy Frazier Chloride [Moles/Vol] 102 mmol/L Normal 98-107 [facility] Comment on above: Performed By: #### C MP ####[facility] Ocalsplkvh9717 [place] [id number]. Chrissy Frazier CO2 [Moles/Vol] 24.0 mmol/L Normal 21.0-32.[address] [facility] Comment on above: Performed By: #### C MP ####[facility] Mrsisnjiyf6195 [place] [phone]. Chrissy Frazier Creatinine [Mass/Vol] 1.26 mg/dL Normal 0.70-1.30 [facility] Comment on above: Performed By: #### C MP ####[facility] Bklrukcopx7755 [place] [phone]. Chrissy Frazier EGFR-AF HAITIAN >60 Normal >=[address] [facility] Comment on above: Performed By: #### C MP ####[facility] Tsxtewfrtm8517 [place] [address]Dr. Chrissy Frazier EGFR-NON AF HAITIAN >60 Normal >=60 [facility] Comment on above: Performed By: #### C MP ####[facility] Varymhoudl3314 [place] [address]Dr. Chrissy Freddie Globulin (S) [Mass/Vol] 3.7 g/dL Normal [facility] Comment on above: Performed By: #### C MP ####[facility] Czmgrmjhkz2061 [place] [address]Dr. Tishrowan Freddie Glucose [Mass/Vol] 119 mg/dL Critically high 74-106 [facility] Comment on above: Performed By: #### C MP ####[facility] Nuacltmpzc2569 [place] [address]Dr. Chrissy Freddie Potassium [Moles/Vol] 3.2 mmol/L Critically low 3.5-5.1 [facility] Comment on above: Performed By: #### C MP ####[facility] Zcljmzvijt[address] [place], [place] [address]Dr. Chrissy Freddie Protein [Mass/Vol] 7.6 g/dL Normal 6.4-8.2 [facility] Comment on above: Performed By: #### C MP ####[facility] Urwnumoicv2253 [place] [address]Dr. Chrissy Freddie Sodium [Moles/Vol] 136 mmol/L Normal 136-145 [facility] Comment on above: Performed By: #### C MP ####[facility] Oqcwsjcmrd[address] [place], [place] [address]Dr. Tishrowan Freddie Urea nitrogen [Mass/Vol] 14.0 mg/dL Normal 7.0-18.0 [facility] Comment on above: Performed By: #### C MP ####[facility] Hazenbogis[address] [place], [place] [address]Dr. Chrissy Frazier Urea nitrogen/Creatinine [Mass ratio] 11.1 mg/mg Normal [facility] Comment on above: Performed By: #### C MP ####[facility] Lmrgmsjhbq3385 [place] [address]Dr. Chrissy Frazier CBC W MANUAL DIFFon 03-27-20 22 ATYPICAL LYMPH # Normal The [facility] Comment on above: Performed By: #### C ANTONETTE ####[facility] Lbijzbcgsb6937 [place] [address]Dr. Chrissy Frazier ATYPICAL LYMPH % Normal The [facility] Comment on above: Performed By: #### C BCMAN ####[facility] Yzhwcdvqgw3968 [place] [address]Dr. Chrissy Frazier BAND # 0.0 103/ul Normal 0.0-0.3 [facility] Comment on above: Performed By: #### C BCMAN ####[facility] Rjsgptfcst0261 [place] [address]Dr. Chrissy Frazier BAND % 0 % Normal 0-5 [facility] Comment on above: Performed By: #### C ANTONETTE ####[facility] Gyrwvuaomj[address] [place], [place] [address]Dr. Chrissy Frazier BASOM # 0.00 103/ul Normal 0.00-0.10 [facility] Comment on above: Performed By: #### C ANTONETTE ####[facility] Ywrkumtqml[address] [place], [place] [address]Dr. Chrissy Frazier BASOM % 0.0 % Critically low 0.2-2.0 The [facility] Comment on above: Performed By: #### C ANTONETTE ####[facility] Jfosvrgngc2777 [place] [address]Dr. Chrissy Frazier BLAST # Normal [facility] Comment on above: Performed By: #### C ANTONETTE ####[facility] Dcjoyilwwm3268 [place] [address]Dr. Chrissy Frazier BLAST % Normal [facility] Comment on above: Performed By: #### C ANTONETTE ####[place] [address] [place], [place] [address]DrNancy Frazier CORRECTED WBC Normal 4.0-11.0 The [facility] Comment on above: Performed By: #### C ANTONETTE ####[place] [address]jlvimfwjj[address] [place] [id number] Frazier EOS # 0.00 103/ul Normal 0.00-0.70 The [facility] Comment on above: Performed By: #### C ANTONETTE ####[place] Wovwlspiis[address] [place] [id number]. Chrissy Frazier EOS% 0.0 % Critically low 0.9-7.0 The [facility] Comment on above: Performed By: #### C ANTONETTE ####[place] [address]cpnnj[address] [place] [address]Dr. Chrissy Frazier HCT 47.3 % Normal 42.0-54.0 The [facility] Comment on above: Performed By: #### C ANTONETTE ####[place] [address]knsrad[address] [place] [address]Dr. Chrissy Frazier HGB 16.4 g/dl Normal 14.0-18.0 [facility] Comment on above: Performed By: #### C ANTONETTE ####[place] Uwqpdmfofd26[address] [place] [address]Dr. Chrissy Frazier LYMPHM # 2.31 103/ul Normal 1.20-3.80 [facility] Comment on above: Performed By: #### C ANTONETTE ####[place] Iqlhoqtwqu[address] [place] [id number]. Chrissy Frazier LYMPHM% 9.0 % Critically low 20.5-60.0 The [facility] Comment on above: Performed By: #### C ANTONETTE ####[place] [address]wdcfnmdrb5059 [place] [id number] Frazier MCH 28.6 pg Normal 25.9-34.0 The [place] Comment on above: Performed By: #### C ANTONETTE ####[place] Mbzzxrtzhx8057 [place] [id number]. Chrissy Frazier MCHC 34.7 g/dl Normal 29.9-35.2 The [facility] Comment on above: Performed By: #### C ANTONETTE ####[place] Zaddxofhlt9381 [place] [id number]. Chrissy Frazier MCV 82.4 fL Normal 80.0-94.0 [facility] Comment on above: Performed By: #### C ANTONETTE ####[place] [address]zbergimf5151 [place] [id number]. Chrissy Frazier METAMYELOCYTE # Normal The [facility] Comment on above: Performed By: #### C ANTONETTE ####[place] Dsgmtfnqug1039 [place] [id number]. Chrissy Frazier METAMYELOCYTE % Normal The [facility] Comment on above: Performed By: #### C ANTONETTE ####[place] Nnyrjqnoap[address]28 [place] [id number]. Chrissy Frazier MONOM# 3.85 103/ul Critically high 0.30-0.80 [facility] Comment on above: Performed By: #### C ANTONETTE ####[place] Bqrkghjaaq8074 [place] [address]Dr. Chrissy Frazier MONOM% 15.0 % Critically high 1.7-12.0 [facility] Comment on above: Performed By: #### C ANTONETTE ####[place] Uqrtntplgi4815 [place] [id number]. Chrissy Frazier MPV 10.6 fL Normal 9.5-13.5 The [facility] Comment on above: Performed By: #### C ANTONETTE ####[place] Yopebjqjbp[address]157 [place] [id number]. Chrissy Frazier MYELOCYTE # Normal The [facility] Comment on above: Performed By: #### C ANTONETTE ####[place] S[address]kfhhfyh4248 [place] [id number]. Chrissy Frazier MYELOCYTE % Normal The [facility] Comment on above: Performed By: #### C ANTONETTE ####[place] Xajoofmpqk64[address] [place] [id number]. Chrissy Frazier NRBC Normal The [facility] Comment on above: Performed By: #### C ANTONETTE ####[place] Zrfpdmitgi3256 [place] [phone]. Chrissy Frazier PLT 471 103/ul Critically high 150-450 The [facility] Comment on above: Performed By: #### C ANTONETTE ####[place] [address]fe[address]vpq[address] [place], [place] [address]Ye. Chrissy Frazier RBC 5.74 106/ul Normal 4.70-6.10 [facility] Comment on above: Performed By: #### C ANTONETTE ####[place] Dzllwbtfjt1217 [place] [id number]. Chrissy Frazier RDW 13.7 % Normal 11.0-15.0 The [facility] Comment on above: Performed By: #### Silverio WHITMAN ####[place] Pldhqtozhy[address] [place] [phone]. Chrissy Frazier SEG # 19.53 103/ul Critically high 1.40-6.50 The [facility] Comment on above: Performed By: #### Silverio WHITMAN ####[place] Lbxiomigll[address] [place] [id number]. Chrissy Frazier SEG % 76.0 % Critically high 43.0-75.0 The [facility] Comment on above: Performed By: #### Silverio WHITMAN ####[place] Euomzycnkt3505 [place] [id number]. Chrissy Frazier TOXIC GRANULATION SLIGHT Normal The [facility] Comment on above: Result Comment: few vacoules Performed By: #### C ANTONETTE ####[place] [address] [place], [place] [id number]. Chrissy Frazier WBC 25.7 103/ul Critically high 4.0-11.[address] [facility] Comment on above: Performed By: #### Silverio WHITMAN ####[place] Jfpnlhzflx5208 [place] [address]Dr. Chrissy Frazier LACTATE/LACTIC ACIDon 2021 Lactate [Moles/Vol] 2.4 mmol/L Critically high 0.4-1.9 The [facility] Comment on above: Performed By: #### L RICHELLE ####[place] Dmzrzhwgzp6433 [place] [address]Dr. Chrissy Frazier Lactate [Moles/Vol] 3.5 mmol/L Critically high 0.4-1.9 [facility] Comment on above: Performed By: #### L ACT ####[place] Dqteeqjjiz5228 [place] [address]Dr. Chrissy Frazier LIPASEon 03-27-2022 Lipase [Catalytic activity/Vol] 43.0 U/L Critically low 73.0-393.0 [facility] Comment on above: Performed By: #### C MP, LIPA ####[place] [address] [place], [place] [address]Dr. Chrissy Frazier PROF 14(COMP METB)on 022 Albumin [Mass/Vol] 4.7 g/dL Normal 3.4-5.0 [facility] Comment on above: Performed By: #### C MP, LIPA ####[place] [address] [place], [place] [address]Dr. Chrissy Frazier Albumin/Globulin [Mass ratio] 1.1 {ratio} Normal [facility] Comment on above: Performed By: #### C MP, LIPA ####[place] Abns[address]xpqi[address] [place], [place] [address]Dr. Chrissy Frazier ALP [Catalytic activity/Vol] 69 U/L Normal 46-116 [facility] Comment on above: Performed By: #### C MP, LIPA ####[place] [address]ms[address] [place], [place] [address]Dr. Chrissy Frazier ALT [Catalytic activity/Vol] 47 U/L Normal 16-63 [facility] Comment on above: Performed By: #### C MP, LIPA ####[place] [address] [place], [place] [address]Dr. Chrissy Frazier Anion gap [Moles/Vol] 23.2 mmol/L Normal [facility] Comment on above: Performed By: #### C MP, LIPA ####[place] [address] [place], [place] [address]Dr. Chrissy Frazier AST [Catalytic activity/Vol] 23 U/L Normal 15-37 [facility] Comment on above: Performed By: #### C MANA, LIPA ####[place] Cqxbqcabzf9515 [place] [address]Dr. Chrissy Frazier Bilirubin [Mass/Vol] 0.7 mg/dL Normal 0.2-1.0 [facility] Comment on above: Performed By: #### C MANA, LIPA ####[place] Vtncyisjdd1523 [place] [address]Dr. Chrissy Frazier Calcium [Mass/Vol] 9.2 mg/dL Normal 8.5-10.1 [facility] Comment on above: Performed By: #### C MANA, LIPA ####[place] [address] [place], [place] [address]Dr. Chrissy Frazier Chloride [Moles/Vol] 97 mmol/L Critically low 98-107 [facility] Comment on above: Performed By: #### C MANA, LIPA ####[place] [address]ibp[address] [place], [place] [address]Dr. Chrissy Frazier CO2 [Moles/Vol] 18.2 mmol/L Critically low 21.0-32.0 [facility] Comment on above: Performed By: #### C MANA, LIPA ####[place] [address]qvmegol[address] [place], [place] [address]Dr. Chrissy Frazier Creatinine [Mass/Vol] 1.77 mg/dL Critically high 0.70-1.30 [facility] Comment on above: Performed By: #### C MP, LIPA ####[facility] Ckomhcwrez28[address] [place] [address]Dr. Chrissy Frazier EGFR-AF HAITIAN 54 mL/min/1.73m2 Critically low >=60 [facility] Comment on above: Performed By: #### C MP, LIPA ####[place] [address] [place], [place] [address]Dr. Chrissy Frazier EGFR-NON AF HAITIAN 45 mL/min/1.73m2 Critically low >=60 [facility] Comment on above: Performed By: #### C MANA, LIPA ####[place] Nszlzvbmhl28[address] [place] [address]Dr. Chrissy Frazier Globulin (S) [Mass/Vol] 4.4 g/dL Normal [facility] Comment on above: Performed By: #### C MP, LIPA ####[place] Wczazmunid5[address] [place] [address]Dr. Chrissy Frazier Glucose [Mass/Vol] 131 mg/dL Critically high 74-106 [facility] Comment on above: Performed By: #### C MP, LIPA ####[place] Bsxcwaoxeu[address] [place] [address]Dr. Chrissy Frazier Potassium [Moles/Vol] 3.4 mmol/L Critically low 3.5-5.1 [facility] Comment on above: Performed By: #### C MP, LIPA ####[place] [address] [place], [place] [address]Dr. Chrissy Frazier Protein [Mass/Vol] 9.1 g/dL Critically high 6.4-8.2 [facility] Comment on above: Performed By: #### C MP, LIPA ####[place] [address] [place], [place] [address]Dr. Chrissy Frazier Sodium [Moles/Vol] 135 mmol/L Critically low 136-145 [facility] Comment on above: Performed By: #### C MP, LIPA ####[place] [address] [place], [place] [address]Dr. Chrissy Frazier Urea nitrogen [Mass/Vol] 19.0 mg/dL Critically high 7.0-18.0 [facility] Comment on above: Performed By: #### C MP, LIPA ####[place] Pnbfozsbrd45[address] [place] [address]Dr. Chrissy Frazier Urea nitrogen/Creatinine [Mass ratio] 10.7 mg/mg Normal [facility] Comment on above: Performed By: #### C MP, LIPA ####[place] [address] [place], [place] [address]Dr. Chrissy Frazier BMPon 12-14-2020 Anion gap [Moles/Vol] 14 mmol/L Normal 6-16 [facility] Comment on above: Performed By: #### 2 [id number], [id number], [id number] #### [facility] [address] [place] [address] Calcium [Mass/Vol] 9.0 mg/dL Normal 8.9-11.1 [facility] Comment on above: Performed By: #### 2 487225, [id number], [id number] #### [facility] [address] [place] [address] Chloride [Moles/Vol] 104 mmol/L Normal 101-111 [facility] Comment on above: Performed By: #### 2 145624, [id number], [id number] #### [facility] [address] [place] [address] CO2 [Moles/Vol] 21 mmol/L Normal 21-31 [facility] Comment on above: Performed By: #### 2 [id number], [id number], [id number] #### [facility] [address] [place] [address] Creatinine [Mass/Vol] 1.3 mg/dL Normal 0.5-1.3 [facility] Comment on above: Performed By: #### 2 185978, [id number], [id number] #### [facility] [address] [place] [address] Glucose [Mass/Vol] 111 mg/dL Normal 55-199 [facility] Comment on above: Result Comment: If t his glucose result represents a fasting glucose, interpretation should refer to the following reference range: 55-99 mg/dL Performed By: #### 2 [id number], [id number], [id number] #### [facility] [address] [place] [address] Potassium [Moles/Vol] 2.9 mmol/L Low 3.5-5.3 [facility] Comment on above: Performed By: #### 2 713965, [id number], [id number] #### [facility] [address] [place] [address] Sodium [Moles/Vol] 136 mmol/L Normal 135-145 [facility] Comment on above: Performed By: #### 2 564310, [id number], [id number] #### [facility] [address] [place] [address] Urea nitrogen [Mass/Vol] 14 mg/dL Normal 5-21 [facility] Comment on above: Performed By: #### 2 545158, [id number], [id number] #### [facility] [address] [place] [address] Urea nitrogen/Creatinine [Mass ratio] 11 No Units Normal 10-20 [facility] Comment on above: Performed By: #### 2 193849, [id number], [id number] #### [facility] [address] [place] [address] Lipase Levelon 11-03-2020 Lipase [Catalytic activity/Vol] 66 unit/L High 13-58 [facility] Comment on above: Performed By: #### 2 191215, [id number], [id number] #### [facility] [address] [place] [address] Physician Orderon 11-03-2020 Physician Order [id number]# 1.00CD:127 Normal [facility] eGFRon 11-03-2020 GFR/1.73 sq M predicted among blacks MDRD (S/P/Bld) [Vol rate/Area] mL/min/{1.73_m2} Normal >=59 [facility] Comment on above: Order Comment: Order added by Discern Expert. Result Comment: eGFR is race adjusted. AA=. Performed By: #### 2 898711, [id number], [id number] #### [facility] [address] [place] [address] GFR/1.73 sq M predicted among non-blacks MDRD (S/P/Bld) [Vol rate/Area] mL/min/{1.73_m2} Normal >=59 [facility] Comment on above: Order Comment: Order added by Discern Expert. Result Comment: Night Nurse lindsay kidney disease could be indicated at eGFR's of less than 60 mL/min/1.73m2. Kidney failure is indicated at less than 15 mL/min/1.73m2. Performed By: #### 2 256672, [id number], [id number] #### [facility] [address] [place] [address] Encounters Encounter Date Encounter Type Care Provider Facility Start: 04-16-2025 End: 04-16-2025 Subsequent hospital visit by physician Luh Bose 1 Work Phone: Radiology Comment on above: Right shoulder pain, unspecified chronicity [M25.511] Start: 04-16-2025 End: 04-16-2025 ambulatory [facility] Comment on above: Radiology XR Start: 04-16-2025 End: 04-16-2025 Patient encounter procedure [facility] Comment on above: Rotator cuff tendini tis, right (Primary Dx); Arthritis of right shoulder; AC joint arthropathy; History of repair of right rotator cuff; Right shoulder pain, unspecified chronicity Start: 12-04-2024 End: 12-04-2024 Office outpatient visit 15 minutes Tung Northeim PA Work Phone: [facility] Comment on above: Tinea versicolor (Pr imary Dx) Start: 12-04-2024 End: 12-04-2024 ambulatory TUNG NORTHEIM Not Available Start: 12-04-2024 End: 12-04-2024 Bamboo flowsheet Tung Northeim PA Work Phone: [facility] Start: 12-04-2024 End: 12-04-2024 Bamboo flowsheet Tung Northeim PA Work Phone: [facility] Start: 05-16-2024 End: 05-16-2024 ambulatory TUNG NORTHEIM Not Available Start: 03-07-2024 End: 03-07-2024 ambulatory TUNG NORTHEIM Not Available Start: 03-30-2023 ambulatory Luis Angel Bentley Fa cility:[facility] Start: 01-03-2023 End: 01-04-[address] MELODY MARIO . Facility:[facility] Start: 01-03-2023 End: 01-04-2023 ambulatory RAQUEL NELSONMARY Facility:[facility] Start: 12-29-2022 End: 12-30-[address] MELODY MARIO . Facility:[facility] Start: 12-13-2022 End: 12-14-2022 ambulatory [facility] Start: 11-24-2022 End: 11-24-2022 ambulatory [facility] Start: 11-16-2022 End: 11-17-[address] [...] Facility:[facility] Start: 04-04-2022 End: 04-04-2022 ambulatory ODELL ADELEVIJAYA Facility:[facility] Start: 03-27-2022 End: 03-31-[address] MELODY MARIO . Facility:[facility] Procedures Date Procedure Procedure Detail Performing Clinician Start: 04-16-2025 Radex shoulder complete minimum 2 views Palmer Shea PA-C Work Phone: History of repair of musculotendinous cuff of shoulder History of repair of right rotator cuff Palmer Shea PA-C Work Phone: Plan of Treatment Date Care Activity Detail Author Start: 07-22-2025 Influenza vaccination Influenz a Vaccine (Season Ended) [facility] Start: 02-01-2025 End: 02-01-2025 Patient encounter procedure 02/01/2025 1:20 PM EDT Office Visit [facility] [address] [place] [phone] Tung Gunn PA [address] [place] [id number] [facility] Start: 2025 Lipid panel Lipid Screening [facility] Start: 12-04-2024 End: 12-04-2024 Patient encounter procedure 12/04/2024 2:50 PM EST Office Visit [facility] [address] [place] [address] Tung Gunn PA [address] [place] [address] Arrived [facility] Comment on above: Arrived Start: 07-22-2024 Covid-19 Vaccine ( season) Covid-19 Vaccine ( season) [facility] Start: 07-22-2024 Influenza vaccination Influenza Vacc ine (#1) [facility] Start: 2009 Hepatitis B Vaccine (1 of 3 - 19+ 3-dose series) Hepatitis B Vaccine (1 of 3 - 19+ 3-dose series) [facility] Start: 01-21-2008 Anxiety Screening Anxiety Screening [facility] Start: 01-21-2008 Depression Screening Depression Scre ening [facility] Start: 01-21-2008 Hepatitis C screening Hepatitis C Sc reening [facility] Start: 01-21-2008 HIV screening HIV Screening [facility] Start: 2001 Urine microalbumin profile DTa P,Tdap,Td Vaccine (5 - Tdap) [facility] Immunizations Immunization Date Immunization Notes Care Provider Fa cility 09-03-2022 influenza virus vacc ine, unspecified formulation Tung ISAACS Work Phone: [facility] Healthcare Payers Date Payer Category Payer Self-pay 2019 Private Health Insurance [id number] 1990 Unknown [id number] 2.16.84 0.1.802959.3.579.2.593 1990 Unknown [id number] 2.16.84 0.1.415784.3.579.2.593 1990 Unknown [id number] 2.16.84 0.1.481459.3.579.2.593 1990 Unknown [id number] 2.16.84 0.1.274023.3.579.2.593 1990 Unknown [id number] 2.16.84 0.1.204824.3.579.2.593 1990 Unknown [id number] 2.16.84 0.1.646838.3.579.2.593 1990 Unknown [id number] 2.16.84 0.1.954298.3.579.2.593 1990 Unknown [id number] 2.16.84 0.1.974081.3.579.2.593 1990 Unknown [id number] 2.16.84 0.1.163240.3.579.2.593 1990 Unknown [id number] 2.16.84 0.1.127736.3.579.2.593 1990 Unknown [id number] 2.16.84 0.1.398668.3.579.2.593 1990 Unknown [id number] 2.16.84 0.1.949797.3.579.2.593 1990 Unknown [id number] 2.16.84 0.1.771242.3.579.2.593 1990 Unknown [id number] 2.16.84 0.1.720274.3.579.2.1259 1990 Unknown [id number] 2.16.84 0.1.936625.3.579.2.1259 1990 Unknown [id number] 2.16.84 0.1.795244.3.579.2.1259 1959 Private Health Insurance [id number] Unknown [id number] 2.16.8 40.1.519069.3.579.2.531 Social History Date Type Detail Facility Start: 03-07-2024 Tobacco smoking stat [facility] Never smoked tobacco [facility] Start: 03-07-2024 Tobacco use and exposure Smoke less tobacco non-user [facility] Start: 12-04-2024 End: 04-16-2025 History of Social function [facility] Start: 12-04-2024 End: 04-16-2025 Tobacco use panel [facility] Start: 1990 Sex assigned at Not on file [facility] Start: 09-28-2007 Alcoholic beverage intake Not Asked [facility] National Score (1-10 0), lower number is lower risk 80 [facility] Clinical Notes 11-24-2022 to 04-16-2025 Palmer Shea PA-C - 04/16/2025 2:35 PM Janet Flowers Tech - 04/16/2025 2:29 PM [facility] - 12/04/2024 2:50 PM EST Note Date & Type Note Facility 04-16-2025 Note HNO ID: [id number] Author: PALMER SHEA PA-C Service: ? Author Type: Physician Supervisor [facility] Type: Progress Notes Filed: 04/16/2025 15:07 Note Text: This document has been created with the use of voice recognition technology, including AI Scribe technology. It may contain inaccuracies: misspellings, inaccurate syntax or word sense that escaped review. The patient is seen at the request of self for evaluation and an opinion regarding treatment. A copy of this report will remain in the shared medical record CHIEF COMPLAINT: Paulina Montero is a 35 year old Right hand dominant male who presents today for new evaluation of right shoulder. HISTORY OF PRESENT ILLNESS: PAIN EVALUATION 04/16/2025 1433 Pain Level: 7 Pain Location: Shoulder-Right Description: Aching;Sharp Duration Amount of Time: 2 Duration Units: Years Frequency: Continuous Intervention/Comfort measure: Reposition;Relaxation;Medication; Positioning;Cold HISTORY: Paulina is a 35-year-old male presenting with chronic right shoulder pain. Paulina reports chronic right shoulder pain, which is tender to palpation and radiates around the shoulder area. He also experiences pain in the posterior aspect of the shoulder. The pain is exacerbated by certain movements, such as those performed during a recent x-ray, and he reports a sensation of the shoulder slipping out of place frequently. He denies any recent activities that may have triggered the pain but mentions a history of playing flag football and working out, which he believes may have contributed to the issue. Paulina has a history of two shoulder surgeries in his teenage years due to a football injury, including a rotator cuff repair and a possible labrum repair. The first surgery was performed when he was 16 years old by a doctor in [place], and the second surgery was performed a year later by Dr. Carrion in [place]. The second surgery is where the repair occurred. He does not feel he has full range of motion or strength in his right shoulder, noting significant pain with certain movements. He has been managing the pain with ice and ibuprofen. He also reports a history of six cortisone injections in his shoulder at the age of 22. He denies any issues with his left shoulder, although he mentions it hurts a little bit. Paulina is otherwise healthy and does not report any other medical issues. No other musculoskeletal complaints ROS: REVIEW OF SYSTEMS: Constitutional: patient denies any recent fever or significant change in weight Cardiovascular: patient denies any chest pain at rest Respiratory: patient denies any shortness of breath or cough Gastrointestinal: patient denies any current abdominal discomfort Integumentary: patient denies any recent skin changes Musculoskeletal: as noted in the HPI Neurologic: as noted in the HPI Endocrine: patient denies a current diagnosis of diabetes Hematologic/Lymphatic: patient denies any easily bleeding, any recent infection and denies any recent observable lymph node enlargement Psychologic: negative for any recent depression or anxiety issues SOCIAL HISTORY: Tobacco Use: Never FAMILY HISTORY: No family history on file. Musculoskeletal: (+) right shoulder pain, (+) pain with right shoulder range of motion, (+) sensation of right shoulder ?slipping out,? (+) mild left shoulder pain ALLERGIES: ALLERGIES Allergen Reactions Bactrim [Sulfametho* Rash Biaxin [Clarithromy* Unknown Penicillins Intolerance PAST MEDICAL HISTORY: No past medical history on file. SOCIAL HISTORY: Tobacco Use: Never EXAMINATION: GENERAL: Appears healthy, well-nourished, no deformities. ORIENTATION: Alert and oriented to person place and time HABITUS: Normal GAIT: Normal, the patient did not have trouble getting onto the exam table. right shoulder exam: skin intact; no erythema, no ecchymosis, no arm swelling significant irritability with PROM Tenderness to palpation of Codman's point and AC joint Non tender to the GH joint active equals passive ROM- 180/80 Positive significant pain with impingement maneuvers Intact strength with isometric contraction of the RC; when tested against resistance- SS, IS and subscap Bicep with normal course Positive speeds and pain with O'briens No atrophy of the scapula girdle, no scapular dyskinesia intact sensation to light touch distally good radial pulse no pain with neck ROM Imaging: (Today) X-ray of the right shoulder: - Post-traumatic arthritis - Metallic anchor in the humerus from prior surgical repair - AC degenerative changes - mild-moderate glenohumeral OA Right shoulder MRI (report reviewed on patient's phone): - High-grade partial undersurface tear of the infraspinatus tendon - Significant acromioclavicular joint degenerative changes - Chondromalacia of the glenoid - communication of the subacromial bursa with the AC joint IMPRESSION: Encounter Diagn (more content not included)... [facility] 04-16-2025 History of Present illness Narrative This document has been created with the use of voice recognition technology, including [email or web address] Scribe technology. It may contain inaccuracies: misspellings, inaccurate syntax or word sense that escaped review. The patient is seen at the request of self for evaluation and an opinion regarding treatment. A copy of this report will remain in the shared medical record CHIEF COMPLAINT: Paulina Montero is a 35 year old Right hand dominant male who presents today for new evaluation of right shoulder. HISTORY OF PRESENT ILLNESS: PAIN EVALUATION 04/16/2025 1433 Pain Level: 7 Pain Location: Shoulder-Right Description: Aching;Sharp Duration Amount of Time: 2 Duration Units: Years Frequency: Continuous Intervention/Comfort measure: Reposition;Relaxation;Medication; Positioning;Cold HISTORY: Paulina is a 35-year-old male presenting with chronic right shoulder pain. Paulina reports chronic right shoulder pain, which is tender to palpation and radiates around the shoulder area. He also experiences pain in the posterior aspect of the shoulder. The pain is exacerbated by certain movements, such as those performed during a recent x-ray, and he reports a sensation of the shoulder slipping out of place frequently. He denies any recent activities that may have triggered the pain but mentions a history of playing flag football and working out, which he believes may have contributed to the issue. Paulina has a history of two shoulder surgeries in his teenage years due to a football injury, including a rotator cuff repair and a possible labrum repair. The first surgery was performed when he was 16 years old by a doctor in [place], and the second surgery was performed a year later by Dr. Carrion in [place]. The second surgery is where the repair occurred. He does not feel he has full range of motion or strength in his right shoulder, noting significant pain with certain movements. He has been managing the pain with ice and ibuprofen. He also reports a history of six cortisone injections in his shoulder at the age of 22. He denies any issues with his left shoulder, although he mentions it hurts a little bit. Paulina is otherwise healthy and does not report any other medical issues. No other musculoskeletal complaints ROS: REVIEW OF SYSTEMS: Constitutional: patient denies any recent fever or significant change in weight Cardiovascular: patient denies any chest pain at rest Respiratory: patient denies any shortness of breath or cough Gastrointestinal: patient denies any current abdominal discomfort Integumentary: patient denies any recent skin changes Musculoskeletal: as noted in the HPI Neurologic: as noted in the HPI Endocrine: patient denies a current diagnosis of diabetes Hematologic/Lymphatic: patient denies any easily bleeding, any recent infection and denies any recent observable lymph node enlargement Psychologic: negative for any recent depression or anxiety issues SOCIAL HISTORY: Tobacco Use: Never FAMILY HISTORY: No family history on file. Musculoskeletal: (+) right shoulder pain, (+) pain with right shoulder range of motion, (+) sensation of right shoulder slipping out, (+) mild left shoulder pain ALLERGIES: ALLERGIES Allergen Reactions Bactrim [Sulfametho* Rash Biaxin [Clarithromy* Unknown Penicillins Intolerance PAST MEDICAL HISTORY: No past medical history on file. SOCIAL HISTORY: Tobacco Use: Never EXAMINATION: GENERAL: Appears healthy, well-nourished, no deformities. ORIENTATION: Alert and oriented to person place and time HABITUS: Normal GAIT: Normal, the patient did not have trouble getting onto the exam table. right shoulder exam: skin intact; no erythema, no ecchymosis, no arm swelling significant irritability with PROM Tenderness to palpation of Codman's point and AC joint Non tender to the GH joint active equals passive ROM- 180/80 Positive significant pain with impingement maneuvers Intact strength with isometric contraction of the RC; when tested against resistance- SS, IS and subscap Bicep with normal course Positive speeds and pain with O'briens No atrophy of the scapula girdle, no scapular dyskinesia intact sensation to light touch distally good radial pulse no pain with neck ROM Imaging: (Today) X-ray of the right shoulder: - Post-traumatic arthritis - Metallic anchor in the humerus from prior surgical repair - AC degenerative changes - mild-moderate glenohumeral OA Right shoulder MRI (report reviewed on patient's phone): - High-grade partial undersurface tear of the infraspinatus tendon - Significant acromioclavicular joint degenerative changes - Chondromalacia of the glenoid - communication of the subacromial bursa with the AC joint IMPRESSION: Encounter Diagnosis ICD-10-CM 1. Rotator cuff tendinitis, right M75.81 CONSULT TO PHYSICAL THERAPY 2. Arthritis of right shoulder M19.011 3. AC joint arthropathy M19.019 CONSULT TO PHYSICAL THERAPY 4. History of repair of right rotator cuff Z98.890 CONSULT TO PHYSICAL THERAPY 5. Right shoulder pain, unspecified chronicity M25.511 XR SHOULDER ORTHO 4V AP/TRUE AP/LAT/OUTLET RIGHT Procedures Plan: 1. Rotator cuff tendinitis, right (M75.81) AC joint arthropathy (M19.019) History of repair of right rotator cuff (Z98.890) Right shoulder pain, unspecified chronicity (M25.511) Right shoulder pain is multifactorial, involving rotator cuff tendinitis, AC joint arthropathy, and a history of rotator cuff repair. MRI reveals a high-grade partial undersurface tear of the infraspinatus, significant AC joint degenerative changes, chondromalacia of the glenoid, and arthritis in the shoulder joint. Physical exam demonstrates tenderness over the AC joint and rotator cuff capsule, with some weakness in the infraspinatus muscle. No evidence of shoulder instability or dislocation. X-ray shows post-traumatic arthritis and a metallic screw in the humerus with a cyst formation around it. - Discussed symptomatic treatment options, including cortisone injection into the rotator cuff bursa and AC joint to provide relief. - Advised against repetitive cortisone injections due to potential damage to the rotator cuff and cartilage. - Recommended physical therapy focusing on strengthening the shoulder girdle to overcome tendinopathies. - Patient to obtain and send prior MRI images and radiology reports for further review. - Discussed the possibility of shoulder replacement in the future due to arthritis. - Follow-up via phone or virtual visit to discuss MRI findings and treatment progress. Palmer Shea PA-C documented in this encounter [facility] 04-16-2025 Note HNO ID: [id number] Author: JANET SO Tech Service: ? Author Type: X Ray Technician Type: Progress Notes Filed: 04/16/2025 14:30 Note Text: Radiology Service Progress Note PATIENT NAME: Paulina Montero DATE OF SERVICE: April 16, 2025 TIME: 2:29 PM PATIENT IDENTITY VERIFICATION COMPLETED USING TWO (2) IDENTIFIERS: Name and Date of confirmed by patient verbally. FALL SCREENING: Has the patient had 2 falls in the last year or 1 fall with injury or currently using an Ambulatory Assistive Device (Walker, Cane, Wheelchair, Crutches, etc.)? No PATIENT GENDER DATA: Assigned male at PATIENT RELEVANT IMPLANT DATA REVIEWED: Not Applicable PATIENT PRESENTS WITH AN IMPLANTABLE OR ATTACHED SLASHER HAND: No RADIOLOGY DEPARTMENT: General X-ray: Exam(s) Completed: Upper Extremity X-Ray(s): Shoulder, AP / TRUE AP / AXILLARY / SUPRA OUTLET right PERIPHERAL IV DATA: Not applicable SIGNED BY: Torres Carrington April 16, 2025 2:[address] [facility] 04-16-2025 History of Present illness Narrative Radiology Service Progress Note PATIENT NAME: Paulina Montero DATE OF SERVICE: April 16, 2025 TIME: 2:29 PM PATIENT IDENTITY VERIFICATION COMPLETED USING TWO (2) IDENTIFIERS: Name and Date of confirmed by patient verbally. FALL SCREENING: Has the patient had 2 falls in the last year or 1 fall with injury or currently using an Ambulatory Assistive Device (Walker, Cane, Wheelchair, Crutches, etc.)? No PATIENT GENDER DATA: Assigned male at PATIENT RELEVANT IMPLANT DATA REVIEWED: Not Applicable PATIENT PRESENTS WITH AN IMPLANTABLE OR ATTACHED SLASHER HAND: No RADIOLOGY DEPARTMENT: General X-ray: Exam(s) Completed: Upper Extremity X-Ray(s): Shoulder, AP / TRUE AP / AXILLARY / SUPRA OUTLET right PERIPHERAL IV DATA: Not applicable SIGNED BY: Torres Carrington April 16, 2025 2:29 PM documented in this encounter [facility] 12-04-2024 History of Present illness Narrative Follow up Diagnosis: Tinea Versicolor [...] Visit: 2 months documented in this encounter [facility] 11-24-2022 Note Cardiology Clinic No te Chief [...] factor modification -Plan (more content not included)... [facility] 11-24-2022 Note New patient here to establish [...] All other systems reviewed and are negative. [facility] Evaluation note Diagnosis Tinea versicolor- Primary Pityriasis versicolor [facility] Right shoulder pain, unspecified chronicity Rotator cuff tendinitis, right- Primary Arthritis of right shoulder AC joint arthropathy Unspecified disorder of shoulder joint History of repair of right rotator cuff Personal history of surgery to other organs Right shoulder pain, unspecified chronicity [facility] Right [facility] pain, unspecified chronicity [facility] Diagnostic Procedure Only (Routine) - Closed Specialty Diagnoses / Procedures Referred By Contac t Referred To Contact XR IMAGING Diagnoses Right shoulder pain, unspecified chronicity Procedures XR SHOULDER ORTHO 4V AP/TRUE AP/LAT/OUTLET RIGHT RADEX SHOULDER COMPLETE MINIMUM 2 VIEWS Palmer Shea PA-C [address] [place] [address] Phone: tel: fax: [place] [phone] Referral ID Status Reason Start Date Expiration Date V isits Requested Visits Authorized [id number] Closed Auto-Generate d Referral 04/12/2025 05/11/2026 1 1 [facility] Summary Purpose Family History No Family [...] section and content) DATE CREATED AUTHOR [facility]04/2020 [facility] DATE CREATED AUTHOR AUTHOR'S ORGANIZ ATION 01/08/2023 [facility] DATE CREATED AUTHOR AUTHOR'S ORGANIZ ATION 02/07/2023 [facility] DATE CREATED AUTHOR AUTHOR'S ORGANIZ ATION 04/01/2023 [facility] DATE CREATED AUTHOR AUTHOR'S ORGANIZ ATION 12/07/2024 [facility] DATE CREATED AUTHOR AUTHOR'S ORGANIZ ATION 04/19/[address] [facility] Reason for Visit (unrecogniz ed section and content) Reason Comments Tinea versicolor Reason Comments Radiology XR Reason Comments New Source Comments (unrecognize d section and content) In the event this informatio n is protected by the Federal Confidentiality of Alcohol and Drug Abuse Patient Records regulations: The Federal rules restrict any use of the information to criminally investigate or prosecute any alcohol or drug abuse patient.[facility] the event this information is protected by the Federal Confidentiality of Alcohol and Drug Abuse Patient Records regulations: The Federal rules restrict any use of the information to criminally investigate or prosecute any alcohol or drug abuse patient.[facility] the event this information is protected by the Federal Confidentiality of Alcohol and Drug Abuse Patient Records regulations: The Federal rules restrict any use of the information to criminally investigate or prosecute any alcohol or drug abuse patient.[facility] Care Teams (unrecognized sec tion and content) Exercise Teacher Relationship Specialty Start Date End Date Melody Mario MD PCP - General 09/25/07 Exercise Teacher Relationship Specialty Start Date End Date Melody Mario MD PCP - General 09/25/07 Exercise Teacher Relationship Specialty Start Date End Date Melody Mario MD PCP - General 09/25/07 FOR RECORDS PERTAINING TO PATIENTS WHO ARE [...] BE BASED ON THE PRIMARY CLINICAL RECORDS. [facility] [employer] [facility]. provides no warranty or guarantee of the accuracy or completeness of information in this document.
--- NOTE | 2025-06-24 02:07 | ED.GENADUL1 ---
HPI HPI - General Adult General Chief complaint: Nausea/Vomiting/Diarrhea Stated complaint: VOMITING Time Seen by Provider: 06/24/25 01:54 Source: patient Mode of arrival: walk-in Limitations: no limitations History of Present Illness HPI narrative: 35-year-old male presents for nausea and vomiting. The vomiting started tonight. He has not been feeling well for a few days. His gives most of the history as he is retching. She states that he is having a flareup of his cannabinol hyperemesis syndrome. He continues to smoke marijuana. No hematemesis or fever. Related Data Home Medications ?Medication ?Instructions ?Recorded ?Confirmed clonidine HCl 0.1 mg tablet 0.2 mg PO BID 11/17/23 07/17/24 hydroxyzine pamoate 25 mg capsule 25 mg PO QID PRN anxiety 11/17/23 07/17/24 lithium carbonate 300 mg capsule 300 mg PO BEDTIME 11/17/23 07/17/24 multivitamin (Daily Multi-Vitamin 1 tab PO DAILY 03/09/24 07/17/24 tablet) ibuprofen 800 mg tablet 800 mg PO Q8H PRN pain 07/16/24 07/17/24 propranolol 80 mg capsule,24 80 mg PO DAILY 07/17/24 07/17/24 hr,extended release (Inderal LA) Previous Rx's ?Medication ?Instructions ?Recorded dicyclomine 10 mg capsule 10 mg PO QID PRN abdominal pain 07/23/24 #12 caps ondansetron 4 mg disintegrating 4 mg PO Q8H PRN nausea and 07/23/24 tablet vomiting 4 days #16 tabs ondansetron 4 mg disintegrating 4 mg PO Q6H PRN nausea and 06/24/25 tablet vomiting #20 tabs Allergies Allergy/AdvReac Type Severity Reaction Status Date / Time Penicillins Allergy Severe Unknown Verified 06/24/25 02:00 clarithromycin (From Biaxin) Allergy Unknown Verified 06/24/25 02:00 sulfamethoxazole (From Allergy unknown Verified 06/24/25 02:00 Bactrim) trimethoprim (From Bactrim) Allergy unknown Verified 06/24/25 02:00 Opioid HPI Opioid Management Most Recent Opioid Data: Last Pain Scale 0 07/18/24, 07:56 Last ORT Total Score 16 07/17/24, 08:28 Last ORT Risk Category High Risk 07/17/24, 08:28 Ur Phencyclidine Scrn, (NEGATIVE) Negative 07/21/24, 04:15 Review of Systems ROS Narrative A ten point review of systems is negative except as noted above. [facility] Medical History (Updated 06/24/25 @ 03:29 by Kayden Zaman MD) JCARLOS (acute kidney injury) ?N17.9 - Acute kidney failure, unspecified (ICD-10) Dehydration ?E86.0 - Dehydration (ICD-10) Bipolar disorder (manic depression) ?F31.9 - Bipolar disorder, unspecified (ICD-10) Acquired deformity of right foot ?M21.961 - Unspecified acquired deformity of right lower leg (ICD-10) Displaced fracture of navicular [scaphoid] of right foot, sequela ?S92.251S - Displaced fracture of navicular [scaphoid] of right foot, sequela (ICD-10) Sprain of tarsometatarsal ligament of right foot ?S93.621A - Sprain of tarsometatarsal ligament of right foot, initial encounter (ICD-10) Post-traumatic osteoarthritis, right ankle and foot ?M19.171 - Post-traumatic osteoarthritis, right ankle and foot (ICD-10) Hemangioma ?D18.00 - Hemangioma unspecified site (ICD-10) Ulnar nerve entrapment ?G56.20 - Lesion of ulnar nerve, unspecified upper limb (ICD-10) Bronchitis ?J40 - Bronchitis, not specified as acute or chronic (ICD-10) Foot pain ?M79.673 - Pain in unspecified foot (ICD-10) Esophagitis ?K20.90 - Esophagitis, unspecified without bleeding (ICD-10) Cyclical vomiting ?R11.15 - Cyclical vomiting syndrome unrelated to migraine (ICD-10) Sciatica ?M54.30 - Sciatica, unspecified side (ICD-10) Insomnia ?G47.00 - Insomnia, unspecified (ICD-10) PTSD (post-traumatic stress disorder) ?F43.10 - Post-traumatic stress disorder, unspecified (ICD-10) Panic attacks ?F41.0 - Panic disorder [episodic paroxysmal anxiety] (ICD-10) Depression ?F32.A - Depression, unspecified (ICD-10) Anxiety ?F41.9 - Anxiety disorder, unspecified (ICD-10) Electronic cigarette use ?Z78.9 - Other specified health status (ICD-10) COVID-19 ?U07.1 - COVID-19 (ICD-10) Sleep apnea ?G47.30 - Sleep apnea, unspecified (ICD-10) GERD (gastroesophageal reflux disease) ?K21.9 - Gastro-esophageal reflux disease without esophagitis (ICD-10) Prediabetes ?R73.03 - Prediabetes (ICD-10) Abdominal pain ?R10.9 - Unspecified abdominal pain (ICD-10) Nausea & vomiting ?R11.2 - Nausea with vomiting, unspecified (ICD-10) Surgical History H/O shoulder surgery ?Z98.890 - Other specified postprocedural states (ICD-10) H/O colonoscopy ?Z98.890 - Other specified postprocedural states (ICD-10) History of esophagogastroduodenoscopy (EGD) ?Z98.890 - Other specified postprocedural states (ICD-10) S/P cubital tunnel release ?Z98.890 - Other specified postprocedural states (ICD-10) History of surgical removal of skin lesion ?Z98.890 - Other specified postprocedural states (ICD-10) ?Z87.2 - Personal history of diseases of the skin and subcutaneous tissue (ICD-10) Family History Other Family history of diabetes mellitus Family history of heart disease Family history of hypertension Family history of myocardial infarction Social History Within the past year, how often did you have a drink containing alcohol: never Score interpretation: A score less than 4 is consistent with normal alcohol consumption. Smoking status: Current some day smoker Do you use any of these nicotine containing products: vaping products Non-prescribed substance use: cannabis (any form) Previous occupational history: [employer] Highest level of school completed/degree received: high school graduate Are you now , , , , never or living with a partner: In a typical week, how many times do you talk on the telephone with family, friends, or neighbors: 3 or more times per week How often do you get together with friends or relatives: 3 or more times per week How often do you attend scientology or worship services: never Do you belong to any clubs or organizations such as scientology groups unions, fraternal or athletic groups, or school groups: no Total score: 2 Score interpretation: A score of greater than or equal to 2 indicates the lowest level of social isolation. Little interest or pleasure in doing things: several days Feeling down, depressed, or hopeless: more than half the days Feel stressed/tense/nervous/anxious/difficulty sleeping: to some extent Exam Narrative Exam Narrative: Nurses note and vital signs reviewed and patient is not hypoxic. General: The patient is retching into an emesis bag. Skin: Warm, dry, no pallor noted. There is no rash noted. Head: Normocephalic, atraumatic Eye: Normal conjunctiva, no drainage Ears, Nose, Mouth, and Throat: oral mucosa is moist. Nares patent. Cardiovascular: Regular Rate and Rhythm Respiratory: Patient is in no distress, no accessory muscle use, lungs are clear to auscultation, no wheezing, rales or rhonchi Back: non-tender, no CVA tenderness bilaterally to percussion. GI: Soft and nontender Musculoskeletal: The patient has no evidence of calf tenderness, no pitting edema, symmetrical pulses noted bilaterally Neurological: A&O, normal speech Psychiatric: Cooperative Constitutional Vital Signs, click to edit/add: Last Vital Signs Temp 98.4 F 06/24/25 01:56 Pulse 71 06/24/25 01:56 Resp 22 H 06/24/25 01:56 BP 160/98 H 06/24/25 02:08 Pulse Ox 97 06/24/25 01:56 O2 Del Method Room Air 06/24/25 01:56 Course Vital Signs Vital signs: Vital Signs Temperature 98.4 F 06/24/25 01:56 Pulse Rate 71 06/24/25 01:56 Respiratory Rate 22 H 06/24/25 01:56 Pulse Oximetry 97 06/24/25 01:56 Oxygen Delivery Method Room Air 06/24/25 01:56 Temperature 98.4 F 06/24/25 01:56 Pulse Rate 71 06/24/25 01:56 Respiratory Rate 22 H 06/24/25 01:56 Blood Pressure 160/98 H 06/24/25 02:08 Pulse Oximetry 97 06/24/25 01:56 Oxygen Delivery Method Room Air 06/24/25 01:56 Medical Decision Making MDM Narrative Medical decision making narrative: Blood work is nonspecific. He is feeling improved after being given IV fluids and Zofran and is discharged home with a prescription for Zofran. He was cautioned against the use of marijuana. Treatment diagnosis and follow-up were discussed with the patient and his . Lab Data Lab results reviewed: Yes I reviewed the patient's lab results Labs: Lab Results 06/24/25 Range/Units 02:02 WBC 15.9 H (4.0-11.0) 10^3/uL RBC 5.76 (4.70-6.10) 10^6/uL Hgb 16.7 (14.0-18.0) g/dL Hct 47.8 (42.0-54.0) % MCV 83.0 (80.0-94.0) fL MCH 29.0 (25.9-34.0) pg MCHC 34.9 (29.9-35.2) g/dL RDW 13.9 (11.0-15.0) % Plt Count 456 H (150-450) 10^3/uL MPV 11.3 (9.5-13.5) fL Neut % (Auto) 72.5 (43.0-75.0) % Lymph % (Auto) 21.6 (20.5-60.0) % [place] % (Auto) 4.7 (1.7-12.0) % Eos % (Auto) 0.4 L (0.9-7.0) % Baso % (Auto) 0.4 (0.2-2.0) % Neut # (Auto) 11.5 H (1.4-6.5) 10^3/uL Lymph # (Auto) 3.4 (1.2-3.8) 10^3/uL [place] # (Auto) 0.8 (0.3-0.8) 10^3/uL Eos # (Auto) 0.1 (0.0-0.7) 10^3/uL Baso # (Auto) 0.1 (0.0-0.1) 10^3/uL Abs Immat Gran (auto) 0.06 H (0.00-0.03) 10^3/uL Imm/Tot Granulo (auto) 0.4 (0.0-0.5) % Sodium 138 (136-145) mmol/L Potassium 3.7 (3.5-5.1) mmol/L Chloride 101 (98-107) mmol/L Carbon Dioxide 13.3 L (21.0-32.0) mmol/L Anion Gap 27.4 BUN 13.0 (7.0-18.0) mg/dL Creatinine 1.58 H (0.70-1.30) mg/dL Est GFR ( Amer) >60 (>=60 mL/min/1.73m^2) Est GFR (Non-Af Amer) 50 L (>=60 mL/min/1.73m^2) BUN/Creatinine Ratio 8.2 Glucose 152 H (74-106) mg/dL Calcium 10.0 (8.5-10.1) mg/dL Discharge Plan Discharge Chief Complaint: Nausea/Vomiting/Diarrhea Clinical Impression: Cannabinoid hyperemesis syndrome Patient Disposition: Home, Self-Care Time of Disposition Decision: 03:29 Condition: Good Mode of Transportation: Private Vehicle Prescriptions / Home Meds: New ondansetron 4 mg tablet,disintegrating 4 mg PO Q6H PRN (Reason: nausea and vomiting) Qty: 20 0RF No Action clonidine HCl 0.1 mg tablet 0.2 mg PO BID hydroxyzine pamoate 25 mg capsule 25 mg PO QID PRN (Reason: anxiety) lithium carbonate 300 mg capsule 300 mg PO BEDTIME multivitamin [Daily Multi-Vitamin] Tablet 1 tab PO DAILY propranolol [Inderal LA] 80 mg capsule,extended release 24 hr 80 mg PO DAILY ondansetron 4 mg tablet,disintegrating 4 mg PO Q8H PRN (Reason: nausea and vomiting) 4 Days Qty: 16 0RF dicyclomine 10 mg capsule 10 mg PO QID PRN (Reason: abdominal pain) Qty: 12 0RF ibuprofen 800 mg tablet 800 mg PO Q8H PRN (Reason: pain) Print Language: Puerto Rican Instructions: Acute Nausea and Vomiting (ED), Cannabis Use Disorder (ED) Referrals: Janes Mario MD [Primary Care Provider, Family Practice] - 1 week
[2025-06-24 02:08] VITALS: BP 160/98
[2025-06-24] MEDS: 0.9 % SODIUM CHLORIDE 1,000 ML 1000 ML IV ×2 (02:23→05:38)
[2025-06-24] MEDS: KETOROLAC TROMETHAMINE 30 MG/ML VIAL IVP (02:23)
[2025-06-24] MEDS: DICYCLOMINE HCL 20 MG/2 ML VIAL IM (02:24)
[2025-06-24 02:33] LABS: Anion Gap 27.4; Blood Urea Nitrogen 13.0 mg/dL (7.0-18.0); Calcium 10.0 mg/dL (8.5-10.1); Carbon Dioxide 13.3 mmol/L (21.0-32.0); Chloride 101 mmol/L (98-107); Estimated GFR (African America >60 (>=60 mL/min/1.73m^2); Estimated GFR (Non-African Ame 50 (>=60 mL/min/1.73m^2); Glucose 152 mg/dL (74-106); Potassium 3.7 mmol/L (3.5-5.1); Sodium 138 mmol/L (136-145)
[2025-06-24 02:50] LABS: Hematocrit 47.8 % (42.0-54.0); Hemoglobin 16.7 g/dL (14.0-18.0); Immature Granulocytes Abs Auto 0.06 10^3/uL (0.00-0.03); Immature Granulocytes Pct Auto 0.4 % (0.0-0.5); Lymphocytes Absolute Auto 3.4 10^3/uL (1.2-3.8); Mean Corpuscular HGB Conc 34.9 g/dL (29.9-35.2); Mean Corpuscular Hemoglobin 29.0 pg (25.9-34.0); Mean Corpuscular Volume 83.0 fL (80.0-94.0); Platelet Count 456 10^3/uL (150-450); Red Blood Count 5.76 10^6/uL (4.70-6.10); White Blood Count 15.9 10^3/uL (4.0-11.0)
[2025-06-24] MEDS: PROMETHAZINE HCL 12.5 MG in 0.9 % SODIUM CHLORIDE 50 ML 202 MG IV (03:41)
[2025-06-24] MEDS: ONDANSETRON 4 MG RAPDIS TABLET SL (04:44)
[2025-06-24] MEDS: HALOPERIDOL LACTATE 5 MG/ML VIAL IV (05:38)
--- NOTE | 2025-06-24 06:45 | PC.NURSE ---
i gave this patient verbal and paper discharge orders along with 1 e-script and this patient voices yes to understanding these discharge orders and e-script. at time of discharge this patient nor voices no concerns, needs and this patient shows no signs of distress
== END 2025-06-24 06:43 | disposition home or self-care (01) ==
PROVIDERS: Emergency Provider Emergency Medicine; PCP Family Medicine
DX: R11.2 Nausea with vomiting, unspecified (principal); F12.90 Cannabis use, unspecified, uncomplicated; F17.290 Nicotine dependence, other tobacco product, uncomplicated
CPT/HCPCS: 36415; 80048; 85025; 96361; 96365; 96372; 96375; 99285; J0500; J1630; J1885; J2550; Q0162

== ENCOUNTER 2025-06-25 09:31 | Emergency (ER) | payer OTHER, SELFPAY ==
--- OUTSIDE RECORDS SUMMARY | 2025-06-11 07:45 | XMS_ITS ---
Author Organization [facility] [place] Address [address] [place] [address] Care Team Providers Care Channel Rebuilder Name Role Phone ArielEliecer moran Primary Care Provider Reason For Referral Diagnosis 1 Rotator cuff tear (M 75.100) Referral Organization [facility] Referring Provider First Name Eliecer Referring Provider Last Name Shelbi Referring Provider [facility] Family [facility] icine Referred Provider Gerald Matute Referred Provider Specialty Orthopedic S urgery Referral Priority Routine REASON FOR VISIT referral to ortho Encounters Encounter Location Date Provider Diagnosis [facility] [address] [place] [address] 06/11/2025 Eliecer Mario Rotator cuff tear M75.100 Assessments Encounter Date Diagnosis (ICD Code) Assessment Notes Treatment Notes Treatment Clinical Notes Section Notes 06/11/2025 Rotator cuff tear (ICD-10 - M75.100) Plan Of Treatment Referrals Referral Date Details 06/11/2025 06/11/2025, Gerald mckeon Progress Notes * Terence MONTERO TDOB:1990 (35 yo M)Acc No.[id number]:06/11/2025 Patient: Terence EDWARDS Francia :1990 A ge:35 Y S ex:Male Address:[facility] [place], [address] Subjective: * Chief Complaints: * R eferral to ortho * Medical History: * Surgical History: * Hospitalization/Major Diagno stic Procedure: * Medications: Objective: * Vitals: * Physical Examination: Assessment: * Assessment: 1. R otator cuff tear - M75.100 (Primary) Plan: * Treatment: * Procedure Codes: * true * Date: Generated for Jason vee/Fady/Luis on: 0 06/25/2025 09:40 AM EDT Consultation Request Notes Referral Date Referring Provider Referred Provider Not es 06/11/2025 Eliecer Mario Justin
--- OUTSIDE RECORDS SUMMARY | 2025-06-24 04:34 | XMS_ITS ---
Author Organization [facility] in [place] Address [address] [place] [address] Care Team Providers Care Auditing Coder Name Role Phone Eliecer Mario Primary Care Provider [phone] REASON FOR VISIT ER Encounters Encounter Location Date Provider Diagnosis [facility] ([place], [place]) [address] [place] [address] 06/24/2025 Eliecer Mario Plan Of Treatment No Information Progress Notes * Terence MONTERO TDOB:1990 (35 yo M)Acc No.[id number]:06/24/2025 Patient: Melissa GIPSON Terence Feldman :1990 A ge:35 Y S ex:Male Address:[facility] [place], [address] * true * Date: Generated for Bobi ng/Faeddieg/eTransmitting on: 0 06/25/2025 09:40 AM EDT
[2025-06-25] VITALS (25 sets, daily range): BP systolic 131–187; BP diastolic 73–94; PULSE 66; TEMP 37.6; O2SAT 92–100; BMI 40.2
--- OUTSIDE RECORDS SUMMARY | 2025-06-25 09:40 | XMS_ITS | Encounter Summary ---
Author Organization [employer] [facility] tem Address [id number] [address] [place] [address] Care Team Providers Care Dry Kiln Burner Name Role Phone Janes Mario MD Primary Care Provider [phone] Encounter Details Date Type Department Care Team (Late Contact Info) Description 05/14/2025 Telephone [facility] [address] [place] [address] Shaunna Beard Social History Tobacco Use Types Packs/Day Years Used Date Smoking Tobacco: Never Smokeless Tobacco: Never Alcohol Use Standard Drinks/Week Comments Never 0 (1 standard drink = 0.6 oz pur e alcohol) AUDIT-C Answer Date Recorded Q1: How often do you have a drink containing alc ohol? Never 01/26/2021 Average Number of Drinks Not on file 021 Frequency of Binge Drinking Not on file 06/2021 Childcare Answer Date Recorded Childcare Unknown 01/26/2021 Employment Answer Date Recorded Employment Unknown 01/26/2021 Purpose - Life Answer Date Recorded Purpose and direction in life Unknown Sex and Gender Information Value Date Recorded Sex Assigned at Not on file Legal Sex Male 12:04 PM EDT Gender Identity Not on file Sexual Orientation Not on file documented as of this encounter Plan of Treatment Upcoming Encounters Date Type Department Care Team (Late Contact Info) Description 08/30/2025 9:25 AM EDT Office Visit [facility] [address] [place] [address] Lane Gibbons MD [address] [place] [address] documented as of this encounter Visit Diagnoses Not on filedocumented in this encounter Care Teams Dry Kiln Burner Relationship Specialty Start Date End Date Janes Mario MD PCP - General Family Medicine 01/26/21 documented as of this encounter
--- OUTSIDE RECORDS SUMMARY | 2025-06-25 09:40 | XMS_ITS | Clinical Summary ---
Author Organization [facility] Healthcare Address [address] [place] [address] Care Team Providers Care Fixed Income Portfolio Manager Name Role Phone Unavailable Primary Care Provider Unavailabl e Allergies Active Allergy Reactions Criticality Noted Date Comments Clarithromycin 03/07/2024 Other Reaction(s): unknown Penicillins Unknown 09/28/2007 Other Reaction(s): Intolerance, Other Sulfamethoxazole-Trimethoprim 2020 Other Reaction(s): unknown Medications propranolol (Inderal) 80 MG tablet TAKE 1 TABLET BY MOUTH EVERY DAY for 90 Active promethazine (Phenergan) 25 MG suppository every 12 (twelve) hours 4 Active pantoprazole (ProtoNix) 40 MG EC tablet 1 (one) time each day at the same time Active metoclopramide (Reglan) 5 MG tablet every 8 (eight) hours Active metoclopramide (Reglan) 10 MG tablet Take 10 mg by mouth in the morning and 10 mg at noon and 10 mg in the evening and 10 mg before bedtime. Active meloxicam (Mobic) 15 MG tablet 1 (one) time each day at the same time 4 Active lithium 300 MG capsule TAKE 1 CAPSULE BY MOUTH EVERY DAY AT BEDTIME for 90 Active ibuprofen 800 MG tablet Take 800 mg by mouth every 8 (eight) hours 3 Active hydrOXYzine pamoate (Vistaril) 25 MG capsule TAKE 1 CAPSULE BY MOUTH FOUR TIMES A DAY NEEDED for 90 Active diclofenac (Voltaren) 75 MG EC tablet every 12 (twelve) hours 4 Active cloNIDine (Catapres) 0.1 MG tablet TAKE 2 TABLETS BY MOUTH TWICE A DAY for 90 Active Adderall 30 MG tablet 1 (one) time each day at the same time 4 Active Ciclopirox 1 % shampooIndicatio ns:Tinea versicolor Lather on body, leave on 5 min, rinse 2-3 x week, 30 day supply 120 mL 11 4 Active ciclopirox (Loprox) 0.77 % creamIndications :Tinea versicolor Apply thin layer to affected area once a day, when flared. 90 g 11 4 Active hyoscyamine ER (Levbid) 0.375 MG 12 hr tablet Take 0.375 mg by mouth every 12 (twelve) hours if needed Active ketoconazole (NIZOral) 2 % creamIndications :Tinea versicolor Apply thin layer to affected area once daily 60 g 11 5 Active fluconazole (Diflucan) 100 MG tabletIndication s:Tinea versicolor 3 tablets by mouth now, repeat in 7 days 6 tablet 5 Active Active Problems No known active problems Encounters Date Type Department Care Team Description 04/24/2025 Telephone [facility] [address] [place] [address] Samaria Houston MA from Last 3 Months Social History Tobacco Use Types Packs/Day Years Used Date Smoking Tobacco: Never Smokeless Tobacco: Never Tobacco Cessation:Counseling Given: Not Answered Sex and Gender Information Value Date Recorded Sex Assigned at Not on file Legal Sex Male 7:19 PM EDT Gender Identity Not on file Sexual Orientation Not on file Plan of Treatment Health Maintenance Due Date Last Done Comments Influenza Vaccine (#1) 2025 09/03/2022, 2019 Insurance [facility]
--- OUTSIDE RECORDS SUMMARY | 2025-06-25 09:40 | XMS_ITS | Clinical Summary ---
Author Organization [facility] Address [address] [place] [id number] Care Team Providers Care Treatment Counselor Name Role Phone Janes Mario MD Primary Care Provider [phone] Allergies Active Allergy Reactions Criticality Noted Date Comments Sulfamethoxazole-Trimethoprim Rash 2024 Clarithromycin Unknown 04/16/2025 Penicillins Intolerance 09/28/2007 Medications Amphetamine-Dext roamphetamine (ADDERALL) 30 mg tablet Take 1 tablet by mouth once daily. Active lithium carbonate (ESKALITH) 300 mg capsule Take 300 mg by mouth. Active IBUPROFEN ORAL Take by mouth. Active Encounters Date Type Department Care Team Description 04/16/2025 2:30 PM EDT Office Visit Orth[facility] [address] [place] [address] Palmer Alaniz PA-C Rotator cuff tendinitis, right (Primary Dx); Arthritis of right shoulder; AC joint arthropathy; History of repair of right rotator cuff; Right shoulder pain, unspecified chronicity 04/16/2025 2:15 PM EDT - 04/16/2025 11:59 PM EDT Hospital Encounter Radiology [address] [place] [address] Right shoulder pain, unspecified chronicity [M25.511] Discharge Disposition: Home 04/16/2025 Radiology Radiology [address] [place] [address] Janet Jerez Tech Radiology XR 04/16/2025 Travel 04/09/2025 Orders Only [facility] [address] [place] [address] Palmer Alaniz PA-C Pain (Primary Dx) from Last 3 Months Social History Tobacco Use Types Packs/Day Years Used Date Smoking Tobacco: Never Alcohol Use Standard Drinks/Week Comments Not Asked 0 (1 standard drink = 0.6 oz pur e alcohol) Area Deprivation Index Answer Date Samuel rded National Score (1-100), lower number is lower ri sk 80 04/16/2025 State Score (1-10), lower number is lower risk 7 04/16/2025 Data from: https://www.neighborhoodatlas.[facility].edu/. Last address used for calculation Jerry POE 04/16/2025 Sex and Gender Information Value Date Recorded Sex Assigned at Not on file Legal Sex Male 8:11 AM EST Gender Identity Not on file Sexual Orientation Not on file Last Filed Vital Signs Vital Sign Reading Time Taken Comments Blood Pressure - - Pulse - - Temperature - - Respiratory Rate - - Oxygen Saturation - - Inhaled Oxygen Concentration - - Weight 117.9 kg (260 lb) 09/28/2007 2:34 PM EST Height 177.8 cm (5' 10 ) 09/28/2007 2:34 PM EST Body Mass Index 37.31 09/28/2007 2:34 PM EST Plan of Treatment Health Maintenance Due Date Last Done Comments DTaP,Tdap,Td Vaccine (5 - Tdap) 2001 07/30/1991, 1990, 1990, Additional history exists Anxiety Screening 01/21/2008 Depression Screening 01/21/2008 HIV Screening 01/21/2008 Hepatitis C Screening 01/21/2008 Hepatitis B Vaccine (1 of 3 - 19+ 3-dose series) 2009 Lipid Screening 2025 Influenza Vaccine (#1) 2025 09/03/2022, 2019 Procedures Procedure Name Priority Date/Time Associated Diagnosis Comments EXTERNAL IMAGING 04/24/2025 3:41 PM EDT XR SHOULDER ORTHO 4V AP/TRUE AP/LAT/OUTLET RT Routine 04/16/2025 2:31 PM EDT Right shoulder pain, unspecified chronicity MRI OUTSIDE CD DICOM IMPORT 04/01/2025 from Last 3 Months Results * EXTERNAL IMAGING (04/24/2025 3:41 PM EDT) Anatomical Region Laterality Modality Other us External Provider PA-C RADIOLOGY Final Res ult * XR SHOULDER ORTHO 4V AP/TRUE AP/LAT/OUTLET RIGHT (04/16/2025 2:31 PM EDT) Anatomical Region Laterality Modality Shoulder Other 04/16/2025 2:31 PM EDT Impressions 04/16/2025 2:54 PM EDT IMPRESSION: Mild degenerative change right shoulder Studio Camera Operator: [email or web address] Transcribe Date/Time: Apr 16 2025 2:51P Dictated by : SIRENA WOODARD MD This examination was interpreted and the report reviewed and electronically signed by: SIRENA WOODARD MD on Apr 16 2025 2:52PM EST Narrative 04/16/2025 2:54 PM EDT * * *Final Report* * * DATE [...] rotator cuff repair. Acromiohumeral interval is maintained. Procedure Note Provider, [facility] - 04/16/2025 * * *Final Report* * [...] IMPRESSION IMPRESSION: Mild degenerative change right shoulder Studio Camera Operator: [email or web address] Transcribe Date/Time: Apr 16 2025 2:51P Dictated by : SIRENA WOODARD MD This examination was interpreted and the report reviewed and electronically signed by: SIRENA WOODARD MD on Apr 16 2025 2:52PM EST Palmer Alaniz PA-C RAD-PAMA Final Resul t * OT-MR SHOULDER RT WO CON IMPORT (04/01/2025) Anatomical Region Laterality Modality Other 04/01/2025 Narrative 04/16/2025 8:21 PM EDT Images were obtained outside of [facility] Procedure Note Provider, [facility] - 04/16/2025 Images were obtained outside of [facility] us Ccf Provider MRI Final Result from Last 3 Months Insurance [id number] CHO[employer] PL[facility] Care Teams Treatment Counselor Relationship Specialty Start Date End Date Janes Mario MD PCP - General 09/25/07
--- OUTSIDE RECORDS SUMMARY | 2025-06-25 09:40 | XMS_ITS | Clinical Summary ---
Author Organization [employer] [facility] tem Address [id number] [address] [place] [address] Care Team Providers Care Entry Level Assistant Manager Name Role Phone Janes Mario MD Primary Care Provider [phone] Allergies Active Allergy Reactions Criticality Noted Date Comments Sulfamethoxazole-Trimethoprim 2020 Penicillins 01/26/2021 Medications hyoscyamine (LEVBID) 0.375 mg 12 hr tablet Take 0.375 mg by mouth every 12 (twelve) hours as needed for cramping. Active dicyclomine HCl (DICYCLOMINE ORAL) Take 20 mg by mouth. Active cloNIDine (CATAPRES) 0.1 mg tablet Take 0.1 mg by mouth 2 (two) times a day. Active pantoprazole (PROTONIX) 40 mg EC tablet Take 40 mg by mouth daily. Active hyoscyamine (LEVSIN) 0.125 mg/5 mL elixir Take 0.125 mg by mouth every 4 (four) hours. Active metoclopramide (REGLAN) 10 mg tablet Take 10 mg by mouth 4 (four) times a day. Active dicyclomine (BENTYL) 20 mg tablet Take 20 mg by mouth every 6 (six) hours. Active Encounters Date Type Department Care Team Description 05/14/2025 Telephone [facility] [address] [place] [address] Shaunna Berad from Last 3 Months Social History Tobacco [...] Sign Reading Time Taken Comments Blood Pressure 145/80 01/26/2021 5:29 PM EST Pulse 55 01/26/2021 5:29 PM EST Temperature 36.4 C (97.5 F) 01/26/2021 2:44 PM EST Respiratory Rate 19 01/26/2021 5:29 PM EST Oxygen Saturation 100% 01/26/2021 5:29 PM EST Inhaled Oxygen Concentration - - Weight 117.9 kg (260 lb) 01/26/2021 2:44 PM EST Height 177.8 cm (5' 10 ) 01/26/2021 2:44 PM EST Body Mass Index 37.31 01/26/2021 2:44 PM EST Plan of Treatment Upcoming Encounters Date Type Department Care Team (Late st Contact Info) Description 08/30/2025 9:25 AM EDT Office Visit [facility] [address] [place] [address] [address] Gibbons MD [address] [place] [address] Health Maintenance Due Date Last Done Comments DTaP,Tdap and Td Vaccines (5 - Tdap) 2001 07/30/1991, 1990, 1990, Additional history exists Depression Screening 2002 Tobacco Screening 2002 Adult BMI Screening 01/21/2008 Influenza Vaccine 07/22/2025 10/31/2020 Medical Devices Not on file Insurance Care Teams Entry Level Assistant Manager Relationship Specialty Start Date End Date Janes Mario MD PCP - General Family Medicine 01/26/21
--- OUTSIDE RECORDS SUMMARY | 2025-06-25 09:40 | XMS_ITS | Clinical Summary ---
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 Active metoclopramide (Reglan) 10 mg tablet Take 10 mg by mouth in the morning and 10 mg at noon and 10 mg in the evening and 10 mg before bedtime. Active pantoprazole (ProtoNix) 40 mg EC tablet Take 40 mg by mouth in the morning. Active Family History Medical History Relation Name Comments Coronary artery disease Father Heart attack Father Relation Name Status Comments Father Social History Tobacco Use Types Packs/Day Years Used Date Smoking Tobacco: Never Smokeless Tobacco: Never Tobacco Cessation:Counseling Given: Not Answered Alcohol Use Standard Drinks/Week Comments Not Currently 0 (1 standard drink = 0.6 oz pur e alcohol) [place] Safety & Environment Answer Date Rec orded Fear of Current or Ex-Partner Not on file Emotionally Abused Not on file 01/12/2024 Physically Abused Not on file 01/12/2024 Sexually Abused Not on file 01/12/2024 Physically or Sexually Abused Not on file Sex and Gender Information Value Date Recorded Sex Assigned at Not on file Legal Sex Male 12:24 AM EDT Gender Identity Not on file Sexual Orientation Not on file Last Filed Vital Signs Vital Sign Reading Time Taken Comments Blood Pressure 113/69 11/24/2022 3:48 PM EST Pulse 85 11/24/2022 3:48 PM EST Temperature - - Respiratory Rate - - Oxygen Saturation 97% 11/24/2022 3:48 PM EST Inhaled Oxygen Concentration - - Weight 129 kg (285 lb) 11/24/2022 3:48 PM EST Height 177.8 cm (5' 10 ) 11/24/2022 3:48 PM EST Body Mass Index 40.89 11/24/2022 3:48 PM EST Plan of Treatment Health Maintenance Due Date Last Done Comments Depression Screening 2002 Varicella Vaccines (1 of 2 - 13+ 2-dose series) 2003 Hepatitis B Vaccines (1 of 3 - 19+ 3-dose series) 2009 Adult Tetanus 01/21/2012 COVID-19 Vaccine (2023-2 5 season) 2024 Influenza Vaccine (#1) 2025 Zoster Vaccines (1 of 2) 01/21/2040 HIB Vaccines Aged Out No longer eligi ble based on patient's age to complete this topic HPV Vaccines Aged Out No longer eligi ble based on patient's age to complete this topic IPV Vaccines Aged Out No longer eligi ble based on patient's age to complete this topic Meningococcal B Vaccine Aged Out No l onger eligible based on patient's age to complete this topic Meningococcal Vaccine Aged Out No medhat king eligible based on patient's age to complete this topic Pneumococcal Vaccine: Pediat rics (0 to 5 Years) and At-Risk Patients (6 to 64 Years) Aged Out No longer eligible b ased on patient's age to complete this topic Rotavirus Vaccines Aged Out No longer eligible based on patient's age to complete this topic Insurance [facility] Care Teams Cruller Maker Relationship Specialty Start Date End Date Janes Mario MD [address] [place] [address] PCP - General 11/24/22
--- OUTSIDE RECORDS SUMMARY | 2025-06-25 09:41 | XMS_ITS | Patient Health Record ---
Author Organization The [facility] in [place] Address [address] [place] [address] Care Team Providers Care Aerospace Medicine Physician Name Role Phone Eliecer Mario Primary Care Provider Shalini Michele [phone] Allergies Allergen (clinical drug ingredient) Drug/Non Drug Allergy documented on EMR Reaction Allergy Type Onset Date Status sulfamethoxazole / trimethoprim Bactrim unknown Drug Allergy Active Biaxin unknown Drug Allergy Active Penicillin unknown Drug Allergy Active Results Component Value Reference Range Notes XR Foot RT (3 views) * Reviewed date:11/19/2024 01:23:24 PM Interpretation: Performing Lab: Notes/Report: [place] (Eskalith(R)), Serum Reviewed date:06/26/2024 03:09:28 PM Interpretation: Performing Lab: Notes/Report: [facility] , [place] (Eskalith(R)), Serum 0.3 0.5-1.2 mmol/L A concentration of 0.5-0.8 mmol/L is advised for long-term use; concentrations of up to 1.2 mmol/L may be necessary during acute treatment. Detection Limit = 0.1 <0.1 indicates None Detected Performed at: - [facility] [address] [id number] Maintenance Painter Apprentice: Ned Delacruz PhD, Phone: [phone] Performing Lab: see note LC - [facility] LB CBC AUTO DIFF Reviewed date:07/15/2024 09:20:18 PM Interpretation: Performing Lab: Notes/Report: [facility] , White Blood Count 16.2 4.0-11.0 10 3/uL Red Blood Count 5.79 4.70-6.10 10 6/uL Hemoglobin 16.3 14.0-18.0 g/dL Hematocrit 47.8 42.0-54.0 % Mean Corpuscular Volume 82.6 80.0-94.0 fL Mean Corpuscular Hemoglobin 28.2 25.9-34.0 pg Mean Corpuscular HGB Conc 34.1 29.9-35.2 g/dL Red Cell Distribution Width 13.7 11.0-15.0 % Platelet Count 476 150-450 10 3/uL Mean Platelet Volume 12.1 9.5-13.5 fL Neutrophils Percent Auto 87.2 43.0-75.0 % Lymphocytes Percent Auto 10.2 20.5-60.0 % Monocytes Percent Auto 1.8 1.7-12.0 % Eosinophils Percent Auto 0.1 0.9-7.0 % Basophils Percent Auto 0.1 0.2-2.0 % Immature Granulocytes Pct Auto 0.6 0.0-0.5 % Neutrophils Absolute Auto 14.1 1.4-6.5 10 3/uL Lymphocytes Absolute Auto 1.7 1.2-3.8 10 3/uL Monocytes Absolute Auto 0.3 0.3-0.8 10 3/uL Eosinophils Absolute Auto 0.0 0.0-0.7 10 3/uL Basophils Absolute Auto 0.0 0.0-0.1 10 3/uL Immature Granulocytes Abs Auto 0.10 0.00-0.03 10 3/uL Performing Lab: see note ML - [facility] LB LIPASE Reviewed date:07/15/2024 09:20:18 PM Interpretation: Performing Lab: Notes/Report: [facility] , Lipase 20.0 16.0-77.0 U/L Performing Lab: see note ML - [facility] LB PROF 14(COMP METB) Reviewed date:07/15/2024 09:20:18 PM Interpretation: Performing Lab: Notes/Report: [facility] , Sodium 142 136-145 mmol/L Potassium 3.5 3.5-5.1 mmol/L Chloride 105 98-107 mmol/L Carbon Dioxide 19.9 21.0-32.0 mmol/L Anion Gap 20.6 Glucose 149 74-106 mg/dL Blood Urea Nitrogen 11.0 7.0-18.0 mg/dL Creatinine 1.66 0.70-1.30 mg/dL Estimated GFR ( Debra 58 >=60 Estimated GFR (Non- Yamileth 48 >=60 BUN Creatinine Ratio 6.6 Calcium 9.2 8.5-10.1 mg/dL Bilirubin Total 0.6 0.2-1.0 mg/dL Aspartate Amino Transferase 20 15-37 U/L Alanine Aminotransferase 44 16-63 U/L Alkaline Phosphatase 90 46-116 U/L Total Protein 7.7 6.4-8.2 g/dL Albumin Level 4.1 3.4-5.0 g/dL Globulin 3.6 Albumin Globulin Ratio 1.1 Performing Lab: see note ML - [facility] LB MAGNESIUM Reviewed date:07/16/2024 01:46:38 PM Interpretation: Performing Lab: Notes/Report: [facility] , Magnesium 2.0 1.8-2.4 mg/dL Performing Lab: see note ML - [facility] LB PROF 14(COMP METB) Reviewed date:07/16/2024 01:46:38 PM Interpretation: Performing Lab: Notes/Report: [facility] , Sodium 141 136-145 mmol/L Potassium 3.6 3.5-5.1 mmol/L Chloride 106 98-107 mmol/L Carbon Dioxide 24.8 21.0-32.0 mmol/L Anion Gap 13.8 Glucose 103 74-106 mg/dL Blood Urea Nitrogen 10.0 7.0-18.0 mg/dL Creatinine 1.08 0.70-1.30 mg/dL Estimated GFR ( Debra >60 >=60 Estimated GFR (Non- Yamileth >60 >=60 BUN Creatinine Ratio 9.3 Calcium 8.9 8.5-10.1 mg/dL Bilirubin Total 0.6 0.2-1.0 mg/dL Aspartate Amino Transferase 24 15-37 U/L Alanine Aminotransferase 38 16-63 U/L Alkaline Phosphatase 78 46-116 U/L Total Protein 6.6 6.4-8.2 g/dL Albumin Level 3.6 3.4-5.0 g/dL Globulin 3.0 Albumin Globulin Ratio 1.2 Performing Lab: see note ML - [facility] LB TSH Reviewed date:07/16/2024 01:46:38 PM Interpretation: Performing Lab: Notes/Report: [facility] , Thyroid Stimulating Hormone 0.418 0.358-3.740 uIU/mL Performing Lab: see note - [facility] LB [place] (Eskalith(R)), Serum Reviewed date:07/17/2024 03:46:50 PM Interpretation: Performing Lab: Notes/Report: [facility] , [place] (Eskalith(R)), Serum 0.1 0.5-1.2 mmol/L A concentration of 0.5-0.8 mmol/L is advised for long-term use; concentrations of up to 1.2 mmol/L may be necessary during acute treatment. Detection Limit = 0.1 <0.1 indicates None Detected Performed at: [address] [id number] Maintenance Painter Apprentice: Ned Delacruz PhD, Phone: [phone] Performing Lab: see note - [facility] LB CBC AUTO DIFF Reviewed date:07/17/2024 03:46:50 PM Interpretation: Performing Lab: Notes/Report: [facility] , White Blood Count 16.1 4.0-11.0 10 3/uL Red Blood Count 5.31 4.70-6.10 10 6/uL Hemoglobin 15.1 14.0-18.0 g/dL Hematocrit 44.2 42.0-54.0 % Mean Corpuscular Volume 83.2 80.0-94.0 fL Mean Corpuscular Hemoglobin 28.4 25.9-34.0 pg Mean Corpuscular HGB Conc 34.2 29.9-35.2 g/dL Red Cell Distribution Width 13.6 11.0-15.0 % Platelet Count 463 150-450 10 3/uL Mean Platelet Volume 10.6 9.5-13.5 fL Neutrophils Percent Auto 59.5 43.0-75.0 % Lymphocytes Percent Auto 31.9 20.5-60.0 % Monocytes Percent Auto 5.7 1.7-12.0 % Eosinophils Percent Auto 2.1 0.9-7.0 % Basophils Percent Auto 0.5 0.2-2.0 % Immature Granulocytes Pct Auto 0.3 0.0-0.5 % Neutrophils Absolute Auto 9.6 1.4-6.5 10 3/uL Lymphocytes Absolute Auto 5.1 1.2-3.8 10 3/uL Monocytes Absolute Auto 0.9 0.3-0.8 10 3/uL Eosinophils Absolute Auto 0.3 0.0-0.7 10 3/uL Basophils Absolute Auto 0.1 0.0-0.1 10 3/uL Immature Granulocytes Abs Auto 0.05 0.00-0.03 10 3/uL Performing Lab: see note ML - [facility] LB DRUG SCREEN RAPID (URINE) Reviewed date:07/17/2024 03:46:50 PM Interpretation: Performing Lab: Notes/Report: [facility] , Cannabinoid Screen Urine POSITIVE NEGATIVE Phencyclidine Screen Urine NEGATIVE NEGATIVE Cocaine Screen Urine NEGATIVE NEGATIVE Methamphetamines Screen Urine NEGATIVE NEGATIVE Opiate Screen Urine NEGATIVE NEGATIVE Amphetamine Screen Urine NEGATIVE NEGATIVE Benzodiazepines Screen Urine NEGATIVE NEGATIVE Tricyclic Antidepressant Urine NEGATIVE NEGATIVE Methadone Screen Urine NEGATIVE NEGATIVE Barbiturates Screen Urine NEGATIVE NEGATIVE Oxycodone Screen Urine NEGATIVE NEGATIVE Buprenorphine Screen Urine NEGATIVE NEGATIVE DRUG CLASS TEST SYSTEM CUT-OFF CONCENTRATIONS ARE FOLLOWS: AMP (Amphetamine): 500 ng/mL BAR (Barbiturates): 200 ng/mL BZO (Benzodiazepines): 150 ng/mL BUP (Buprenorphine): 10 ng/mL LAUREN (Cocaine): 150 ng/mL mAMP (Methamphetamine): 500 ng/mL MTD (Methadone): 200 ng/mL OPI (Opiates): 100 ng/mL OXY (Oxycodone): 100 ng/mL PCP (Phencyclidine): 25 ng/mL THC (Cannabinoids): 50 ng/mL TCA (Trycyclic Antidepressants): 300 ng/mL Performing Lab: see note ML - [facility] LB LACTATE or LACTIC ACID Reviewed date:07/17/2024 03:46:50 PM Interpretation: Performing Lab: Notes/Report: [facility] , Lactate/Lactic Acid 2.1 0.4-2.0 mmol/L RESULTS CALLED TO Tori EMMANUEL)@BY Pauly Hudson MLT at 0507 Performing Lab: see note - [facility] LB LIPASE Reviewed date:07/17/2024 03:46:50 PM Interpretation: Performing Lab: Notes/Report: [facility] , Lipase 87.0 16.0-77.0 U/L Performing Lab: see note ML - [facility] LB PROF 14(COMP METB) Reviewed date:07/17/2024 03:46:50 PM Interpretation: Performing Lab: Notes/Report: [facility] , Sodium 140 136-145 mmol/L Potassium 3.2 3.5-5.1 mmol/L Chloride 101 98-107 mmol/L Carbon Dioxide 20.3 21.0-32.0 mmol/L Anion Gap 21.9 Glucose 132 74-106 mg/dL Blood Urea Nitrogen 12.0 7.0-18.0 mg/dL Creatinine 1.35 0.70-1.30 mg/dL Estimated GFR ( Debra >60 >=60 Estimated GFR (Non- Yamileth >60 >=60 BUN Creatinine Ratio 8.9 Calcium 8.9 8.5-10.1 mg/dL Bilirubin Total 0.6 0.2-1.0 mg/dL Aspartate Amino Transferase 18 15-37 U/L Alanine Aminotransferase 38 16-63 U/L Alkaline Phosphatase 97 46-116 U/L Total Protein 7.8 6.4-8.2 g/dL Albumin Level 4.1 3.4-5.0 g/dL Globulin 3.7 Albumin Globulin Ratio 1.1 Performing Lab: see note - [facility] LB UA RANDOM W or MICROSCOPIC Reviewed date:07/17/2024 03:46:50 PM Interpretation: Performing Lab: Notes/Report: [facility] , Color Urine LT. YELLOW YELLOW Clarity Urine CLEAR CLEAR Specific [place] Urine 1.010 1.005-1.025 pH Urine 7.0 5.0-9.0 Protein Urine NEGATIVE NEG/TRACE mg/dL Glucose Urine UA NEGATIVE NEGATIVE mg/dL Bilirubin Urine NEGATIVE NEGATIVE Ketones Urine 15 NEGATIVE mg/dL Blood Urine NEGATIVE NEGATIVE Nitrite Urine NEGATIVE NEGATIVE Urobilinogen Urine 0.2 0.2-1.0 EU/dL Leukocyte Esterase Urine NEGATIVE NEGATIVE WBC Urine NONE SEEN NONE SEEN #/HPF RBC Urine 0-2 0-2 #/HPF Bacteria Urine NONE SEEN NONE SEEN #/HPF Mucus Urine NONE SEEN NONE SEEN Squamous Epithelial Cell Urine NONE SEEN NONE/RARE #/LPF Crystals Seen? None Seen None Seen #/HPF Cast Seen? NONE SEEN NONE SEEN #/LPF Urine Culture Indicated ALREADY ORDERED Performing Lab: see note ML - [facility] LB Troponin I High Sensitivity Reviewed date:07/17/2024 03:46:50 PM Interpretation: Performing Lab: Notes/Report: [facility] , Troponin I High Sensitivity 6.9 4.0-76.1 pg/mL CUT-OFF POINTS HAVE BEEN ESTABLISHED BASED ON THE FOURTH UNIVERSAL DEFINITION OF MYOCARDIAL INFARCTION. THE UPPER REFERENCE LIMIT (URL) OF TROPONIN, DEFINED THE 99TH PERCENTILE OF cTnI DISTRIBUTION IN A REFERENCE POPULATION, HAS BEEN CONFIRMED THE DECISION THRESHOLD FOR AK DIAGNOSIS. 99TH PERCENTILE = 76.2 PG/ML NOTE: HIGH-SENSITIVITY TROPONIN ASSAY IS NOT INTENDED TO BE USED IN ISOLATION BUT SHOULD BE INTERPRETED IN CONJUNCTION WITH OTHER DIAGNOSTIC AND CLINICAL INFORMATION. Performing Lab: see note ML - [facility] LB Urine Culture, Routine Reviewed date:07/19/2024 11:33:50 AM Interpretation: Performing Lab: Notes/Report: [facility] , Urine Culture, Routine See Below For Report Urine Culture, Routine Urine Culture, Routine No growth Urine Culture, Routine Urine Culture, Routine Performed at: [facility] Urine Culture, Routine Urine Culture, Routine [address] [place] [phone] Urine Culture, Routine Urine Culture, Routine Maintenance Painter Apprentice: Abhijeet Delacruz PhD, Phone: [phone] Urine Culture, Routine Performing Lab: see note LC - [facility] LB SEE REPORT - Tank Tender Id information not found for OBX-specific broadcast news producer legend ECG 12 lead Reviewed date:07/23/2024 02:13:46 PM Interpretation: Performing Lab: Notes/Report: Source Facility: [facility]-[address] [place] [address] Electrocardiograph Report Signed Patient: PAULINA MONTERO MR#: [id number] : 1990 Acct:[id number] Age/Sex: 34 / M ADM Date: 07/23/24 Loc: ER Attending Dr: Ordering Physician: Hugh Rhoades Date of Service: 07/23/24 Procedure(s): ECG 12 lead Accession Number(s): [id number] cc: [facility] Test Date: 2024-07-23 Pat Name: PAULINA MONTERO Department: Room: - Gender: Male Sand Blaster: : 1990 Requested By: 1860 Order Number: [id number] Reading MD: MELODY MARIO Measurements Intervals [place] Rate: 79 P: 19 TN: 156 QRS: 16 QRSD: 88 T: 15 QT: 394 QTc: 429 Interpretive Statements 1100 Sinus rhythm 1102 Sinus arrhythmia 0102 ARTIFACT PRESENT 9110 normal ECG Compared to ECG 07/17/2024 04:44:18 No significant changes Electronically Signed On 07-23-2024 12:35:36 EDT by MELODY MARIO Dictated By: Melody Mario M.D. Signed By: 07/23/24 1235 DD/ 023 TD/TT: Flight Data Technician: [place] [address] Electrocardiograph Report Signed Patient: PAULINA MONTERO MR#: [id number] : 1990 Acct:[id number] Age/Sex: 34 / M ADM Date: 07/23/24 Loc: ER Attending Dr: Ordering Physician: Hugh Rhoades Date of Service: 07/23/24 Procedure(s): ECG 12 lead Accession Number(s): [id number] cc: [facility] Test Date: 2024-07-23 Pat Name: PAULINA Benjamin Department: 44 Room: - Gender: Male Sand Blaster: : 1990 Requ este By: 1860 Order Number: [id number] Reading MD: MELODY MARIO Measurements Intervals [place] Rate: 79 P: 19 TN: 156 QRS: 16 QRSD: 88 T: 15 QT: 394 QTc: 429 Interpretive Statements 1100 Sinus rhythm 1102 Sinus arrhythmia 0102 ARTIFACT PRESENT 9110 normal ECG Compared to ECG 07/17/2024 04:44:18 No significant changes Electronically Paula d On 07-23-2024 12:35:36 EDT by MELODY MARIO Dictated By: Renard Mario M.D. Signed By: 07/23/24 1235 DD/ 0235 TD/TT: Flight Data Technician: CT abdomen pelvis w con Reviewed date:07/17/2024 03:46:50 PM Interpretation: Performing Lab: Notes/Report: Source Facility: [place] [address] [address] [address] Scan Report Signed Patient: PAULINA MONTERO MR#: [id number] : 1990 Acct:[id number] Age/Sex: 34 / M ADM Date: 07/17/24 Loc: ER Attending Dr: Ordering Physician: Alexandra De La Paz Date of Service: 07/17/24 Procedure(s): CT abdomen pelvis w con Accession Number(s): [id number] cc: Melody Mario M.D. [place] [address] Patient Name: PAULINA MONTERO MRN: [id number] date: 1990 Sex: M Assigned Patient Location: ER Current Patient Location: ER Accession/Order Number: [id number] Exam Date: 07/17/2024 05:35 Report Date: 07/17/2024 06:10 At the request of: ALEXANDRA DE LA PAZ Procedure: CT abdomen pelvis w con EXAMINATION: CT abdomen pelvis w con HISTORY: abd pain , N/V/D COMPARISON: CT abdomen pelvis 07/02/2022 TECHNIQUE: Axial, Coronal, and Sagittal images were obtained without and/or with IV contrast as indicated by examination type. Dose reduction techniques were achieved by using automated exposure control and/or adjustment of mA and/or kV according to patient size and/or use of iterative reconstruction technique. FINDINGS: LUNG BASES: No visible pulmonary or pleural disease. LIVER: No enlargement, atrophy, suspicious density, or significant focal lesion. BILIARY: No dilatation or calcification. PANCREAS: No lesion, fluid collection, or abnormal duct dilatation. SPLEEN: No enlargement or focal lesion. ADRENALS: No mass or enlargement. KIDNEYS: No mass, obstruction, or calcification. BOWEL/MESENTERY: Fluid-filled stomach and proximal loops of small bowel without appreciable obstruction or suspicious wall thickening. Scattered fluid levels within the colon. No visible mass, obstruction, or bowel wall thickening. Normal appendix. AORTA/VASCULAR: No aneurysm or dissection. RETROPERITONEUM: No mass or adenopathy. LYMPH NODES: No adenopathy. URINARY BLADDER: No visible focal wall thickening, lesion, or calculus. PELVIC ORGANS: No visible mass. Pelvic organs appropriate for patient age. ABDOMINAL WALL: No mass or hernia. BONES: No bony lesion or fracture. OTHER: Negative. CT/CT abdomen pelvis w con IMPRESSION: 1. Fluid within stomach, small bowel, and colon compatible with patient history. Possible enteritis. No obstruction or significant inflammatory changes. 2. Otherwise unremarkable abdomen and pelvis. Electronically authenticated by: ANDREW BENSON Date: 07/17/2024 06:10 Dictated By: Andrew Benson M.D. Signed By: 07/17/24612 DD/ 9 TD/TT: Flight Data Technician: [place] [address] CT Scan Report Signed Patient: PAULINA MONTERO MR#: [id number] : 1990 Acct:[id number] Age/Sex: 34 / M ADM Date: 07/17/24 Loc: ER Attending Dr: Ordering Physician: Alexandra De La Paz Date of Service: 07/17/24 Procedure(s): CT abd omen pelvis w con Accession Number(s): [id number] cc: Melody Mario M.D. [place] [address] Patient Name: PAULINA MONTERO MRN: [id number] date: 1990 Sex: M Assigned Patient Location: ER Current Patient Loca tion: ER Accession/Order Numb er: [id number] Exam Date: 07/17/2024 05:35 Report Date: 07/17/2024 06:10 At the request of: ALEXANDRA DE LA PAZ Procedure: CT abdome n pelvis w con EXAMINATION: CT abdo men pelvis w con HISTORY: abd pain , N/V/D COMPARISON: CT abdom en pelvis 07/02/2022 TECHNIQUE: Axial, Coronal, and Sagittal images were obtained without and/or with IV contrast as indicated by examination type. Dose reduction techniques were achieved by usi automated exposure control and/or adjustment of mA and/or kV according to patient size and/or use of iterative reconstruction technique. FINDINGS: LUNG BASES: No visib le pulmonary or pleural disease. LIVER: No enlargemen t, atrophy, suspicious density, or significant focal lesion. BILIARY: No dilatati on or calcification. PANCREAS: No lesion, fluid collection, or abnormal duct dilatation. SPLEEN: No enlargeme nt or focal lesion. ADRENALS: No mass or enlargement. KIDNEYS: No mass, obstruction, or calcification. BOWEL/MESENTERY: Fluid-filled stomach and proximal loops of small bowel without appreciable obstruct ion or suspicious wall thickening. Scattered fluid levels within the colon. No visible mass, obstruction, or bowel wall thickening. Normal appendix. AORTA/VASCULAR: No aneurysm or dissection. RETROPERITONEUM: No mass or adenopathy. LYMPH NODES: No adenopathy. URINARY BLADDER: No visible focal wall thickening, lesion, or calculus. PELVIC ORGANS: No vi sible mass. Pelvic organs appropriate for patient age. ABDOMINAL WALL: No m ass or hernia. BONES: No bony lesio n or fracture. OTHER: Negative. C T/CT abdomen pelvis w con IMPRESSION: 1. Fluid within stom ach, small bowel, and colon compatible with patient history. Possible enteritis. No obstruction or significant inflammatory changes. 2. Otherwise unremar kable abdomen and pelvis. Electronically authenticated by: ANDREW BENSON Date: 07/17/2024 06:10 Dictated By: Andrew Benson M.D. Signed By: 07/17/24 0613 DD/ 0610 TD/TT: Flight Data Technician: LACTATE or LACTIC ACID Reviewed date:07/17/2024 03:46:50 PM Interpretation: Performing Lab: Notes/Report: [facility] , Lactate/Lactic Acid 1.8 0.4-2.0 mmol/L Performing Lab: see note - [facility] LB AMYLASE Reviewed date:07/18/2024 08:39:38 AM Interpretation: Performing Lab: Notes/Report: [facility] , Amylase 29 25-115 U/L Performing Lab: see note - [facility] LB CBC AUTO DIFF Reviewed date:07/18/2024 08:39:38 AM Interpretation: Performing Lab: Notes/Report: [facility] , White Blood Count 12.9 4.0-11.0 10 3/uL Red Blood Count 4.70 4.70-6.10 10 6/uL Hemoglobin 13.5 14.0-18.0 g/dL Hematocrit 40.0 42.0-54.0 % Mean Corpuscular Volume 85.1 80.0-94.0 fL Mean Corpuscular Hemoglobin 28.7 25.9-34.0 pg Mean Corpuscular HGB Conc 33.8 29.9-35.2 g/dL Red Cell Distribution Width 13.6 11.0-15.0 % Platelet Count 266 150-450 10 3/uL Mean Platelet Volume 10.1 9.5-13.5 fL Neutrophils Percent Auto 60.3 43.0-75.0 % Lymphocytes Percent Auto 31.7 20.5-60.0 % Monocytes Percent Auto 5.7 1.7-12.0 % Eosinophils Percent Auto 1.7 0.9-7.0 % Basophils Percent Auto 0.4 0.2-2.0 % Immature Granulocytes Pct Auto 0.2 0.0-0.5 % Neutrophils Absolute Auto 7.8 1.4-6.5 10 3/uL Lymphocytes Absolute Auto 4.1 1.2-3.8 10 3/uL Monocytes Absolute Auto 0.7 0.3-0.8 10 3/uL Eosinophils Absolute Auto 0.2 0.0-0.7 10 3/uL Basophils Absolute Auto 0.1 0.0-0.1 10 3/uL Immature Granulocytes Abs Auto 0.03 0.00-0.03 10 3/uL Performing Lab: see note ML - [facility] LB LIPASE Reviewed date:07/18/2024 08:39:38 AM Interpretation: Performing Lab: Notes/Report: [facility] , Lipase 22.0 16.0-77.0 U/L Performing Lab: see note ML - [facility] LB PROF 14(COMP METB) Reviewed date:07/18/2024 08:39:39 AM Interpretation: Performing Lab: Notes/Report: [facility] , Sodium 141 136-145 mmol/L Potassium 3.4 3.5-5.1 mmol/L Chloride 105 98-107 mmol/L Carbon Dioxide 28.1 21.0-32.0 mmol/L Anion Gap 11.3 Glucose 107 74-106 mg/dL Blood Urea Nitrogen 9.0 7.0-18.0 mg/dL Creatinine 1.07 0.70-1.30 mg/dL Estimated GFR ( Debra >60 >=60 Estimated GFR (Non- Yamileth >60 >=60 BUN Creatinine Ratio 8.4 Calcium 8.1 8.5-10.1 mg/dL Bilirubin Total 0.5 0.2-1.0 mg/dL Aspartate Amino Transferase 19 15-37 U/L Alanine Aminotransferase 35 16-63 U/L Alkaline Phosphatase 76 46-116 U/L Total Protein 6.4 6.4-8.2 g/dL Albumin Level 3.2 3.4-5.0 g/dL Globulin 3.2 Albumin Globulin Ratio 1.0 Performing Lab: see note ML - [facility] LB DRUG SCREEN RAPID (URINE) Reviewed date:07/23/2024 11:51:12 AM Interpretation: Performing Lab: Notes/Report: [facility] , Cannabinoid Screen Urine POSITIVE NEGATIVE Phencyclidine Screen Urine NEGATIVE NEGATIVE Cocaine Screen Urine NEGATIVE NEGATIVE Methamphetamines Screen Urine NEGATIVE NEGATIVE Opiate Screen Urine NEGATIVE NEGATIVE Amphetamine Screen Urine NEGATIVE NEGATIVE Benzodiazepines Screen Urine NEGATIVE NEGATIVE Tricyclic Antidepressant Urine NEGATIVE NEGATIVE Methadone Screen Urine NEGATIVE NEGATIVE Barbiturates Screen Urine NEGATIVE NEGATIVE Oxycodone Screen Urine NEGATIVE NEGATIVE Buprenorphine Screen Urine NEGATIVE NEGATIVE DRUG CLASS TEST SYSTEM CUT-OFF CONCENTRATIONS ARE FOLLOWS: AMP (Amphetamine): 500 ng/mL BAR (Barbiturates): 200 ng/mL BZO (Benzodiazepines): 150 ng/mL BUP (Buprenorphine): 10 ng/mL LAUREN (Cocaine): 150 ng/mL mAMP (Methamphetamine): 500 ng/mL MTD (Methadone): 200 ng/mL OPI (Opiates): 100 ng/mL OXY (Oxycodone): 100 ng/mL PCP (Phencyclidine): 25 ng/mL THC (Cannabinoids): 50 ng/mL TCA (Trycyclic Antidepressants): 300 ng/mL Performing Lab: see note ML - [facility] LB LACTATE or LACTIC ACID Reviewed date:07/23/2024 11:51:12 AM Interpretation: Performing Lab: Notes/Report: [facility] , Lactate/Lactic Acid 2.2 0.4-2.0 mmol/L RESULTS CALLED TO HARRISON WILDER RN @BY Tanisha Costello at 0240 Performing Lab: see note ML - [facility] LB PROF 14(COMP METB) Reviewed date:07/23/2024 11:51:13 AM Interpretation: Performing Lab: Notes/Report: [facility] , Sodium 137 136-145 mmol/L Potassium 3.0 3.5-5.1 mmol/L Chloride 99 98-107 mmol/L Carbon Dioxide 24.2 21.0-32.0 mmol/L Anion Gap 16.8 Glucose 131 74-106 mg/dL Blood Urea Nitrogen 13.0 7.0-18.0 mg/dL Creatinine 1.48 0.70-1.30 mg/dL Estimated GFR ( Debra >60 >=60 Estimated GFR (Non- Yamileth 54 >=60 BUN Creatinine Ratio 8.8 Calcium 9.0 8.5-10.1 mg/dL Bilirubin Total 0.9 0.2-1.0 mg/dL Aspartate Amino Transferase 16 15-37 U/L Alanine Aminotransferase 45 16-63 U/L Alkaline Phosphatase 91 46-116 U/L Total Protein 7.8 6.4-8.2 g/dL Albumin Level 4.3 3.4-5.0 g/dL Globulin 3.5 Albumin Globulin Ratio 1.2 Performing Lab: see note ML - [facility] LB UA (CLEAN or CATCH) MAGNETOMETER OPERATOR or M ICRO IF IND. Reviewed date:07/23/2024 11:51:13 AM Interpretation: Performing Lab: Notes/Report: [facility] , Color Urine LT. YELLOW YELLOW Clarity Urine CLEAR CLEAR Specific [place] Urine <=1.005 1.005-1.025 pH Urine 7.0 5.0-9.0 Protein Urine NEGATIVE NEG/TRACE mg/dL Glucose Urine UA NEGATIVE NEGATIVE mg/dL Bilirubin Urine NEGATIVE NEGATIVE Ketones Urine 15 NEGATIVE mg/dL Blood Urine NEGATIVE NEGATIVE Nitrite Urine NEGATIVE NEGATIVE Urobilinogen Urine 0.2 0.2-1.0 EU/dL Leukocyte Esterase Urine NEGATIVE NEGATIVE Urine Microscopic Indicated NO Performing Lab: see note ML - [facility] LB XR abdomen min 2V Reviewed date:07/23/2024 11:51:13 AM Interpretation: Performing Lab: Notes/Report: Source Facility: [facility]-[address] [place] [address] [place] [address] XRay Report Signed Patient: PAULINA MONTERO MR#: [id number] : 1990 Acct:[id number] Age/Sex: 34 / M ADM Date: 07/21/24 Loc: ER Attending Dr: Ordering Physician: Griffin Juárez Date of Service: 07/21/24 Procedure(s): XR abdomen min 2V Accession Number(s): [id number] cc: Griffin Juárez; Melody Mario M.D. The [address] [id number] Patient Name: PAULINA MONTERO MRN: [id number] date: 1990 Sex: M Assigned Patient Location: ER Current Patient Location: ER Accession/Order Number: [id number] Exam Date: 07/21/2024 02:52 Report Date: 07/21/2024 04:04 At the request of: GRIFFIN JUÁREZ Procedure: XR abdomen min 2V EXAM: XR abdomen min 2V HISTORY: abdominal pain COMPARISON: None. TECHNIQUE: 2 views of the abdomen were obtained. FINDINGS: There is a nonspecific bowel gas pattern without evidence of bowel obstruction. No intraperitoneal free air is seen. No acute osseous abnormality is seen. The lung bases are clear. XR/XR abdomen min 2V IMPRESSION: 1. Nonspecific bowel gas pattern without evidence of bowel obstruction. Electronically authenticated by: Troy MICHAELS Date: 07/21/2024 04:04 Dictated By: Troy Michaels M.D. Signed By: 07/21/24406 DD/ 3 TD/TT: Flight Data Technician: [place] [address] XRay Report Signed Patient: PAULINA MONTERO MR#: [id number] : 1990 Acct:[id number] Age/Sex: 34 / M ADM Date: 07/21/24 Loc: ER Attending Dr: Ordering Physician: Griffin Juárez Date of Service: 07/21/24 Procedure(s): XR abd omen min 2V Accession Number(s): [id number] cc: Melody Lemus M.D. The [address] [address] Patient Name: PAULINA MONTERO MRN: [id number] date: 1990 Sex: M Assigned Patient Location: ER Current Patient Loca tion: ER Accession/Order Numb er: [id number] Exam Date: 07/21/2024 02:52 Report Date: 07/21/2024 04:04 At the request of: GRIFFIN JUÁREZ Procedure: XR abdome n min 2V EXAM: XR abdomen min 2V HISTORY: abdominal pain COMPARISON: None. TECHNIQUE: 2 views o f the abdomen were obtained. FINDINGS: There is a nonspecific bowel gas pattern without evidence of bowel obstruction. No intraperitoneal free air is seen. No acute osseous abnormality is seen. The lung ba ses are clear. X R/XR abdomen min 2V IMPRESSION: 1. Nonspecific bowel gas pattern without evidence of bowel obstruction. Electronically authenticated by: Troy MICHAELS Date: 07/21/2024 04:04 Dictated By: Troy Michaels M.D. Signed By: 07/21/24406 DD/ 3 TD/TT: Flight Data Technician: LIPASE Reviewed date:07/23/2024 11:51:12 AM Interpretation: Performing Lab: Notes/Report: [facility] , Lipase 30.0 16.0-77.0 U/L Performing Lab: see note ML - [facility] LB Troponin I High Sensitivity Reviewed date:07/23/2024 11:51:12 AM Interpretation: Performing Lab: Notes/Report: [facility] , Troponin I High Sensitivity 16.8 4.0-76.1 pg/mL CUT-OFF POINTS HAVE BEEN ESTABLISHED BASED ON THE FOURTH UNIVERSAL DEFINITION OF MYOCARDIAL INFARCTION. THE UPPER REFERENCE LIMIT (URL) OF TROPONIN, DEFINED THE 99TH PERCENTILE OF cTnI DISTRIBUTION IN A REFERENCE POPULATION, HAS BEEN CONFIRMED THE DECISION THRESHOLD FOR AK DIAGNOSIS. 99TH PERCENTILE = 76.2 PG/ML NOTE: HIGH-SENSITIVITY TROPONIN ASSAY IS NOT INTENDED TO BE USED IN ISOLATION BUT SHOULD BE INTERPRETED IN CONJUNCTION WITH OTHER DIAGNOSTIC AND CLINICAL INFORMATION. Performing Lab: see note ML - [facility] LB XR acute abdomen series Reviewed date:07/23/2024 11:51:12 AM Interpretation: Performing Lab: Notes/Report: Source Facility: [facility]-[address] [place] [address] [place] [address] XRay Report Signed Patient: PAULINA MONTERO MR#: [id number] : 1990 Acct:[id number] Age/Sex: 34 / M ADM Date: 07/23/24 Loc: ER Attending Dr: Ordering Physician: Hugh Rhoades Date of Service: 07/23/24 Procedure(s): XR acute abdomen series Accession Number(s): [id number] cc: Melody Mario M.D.; Hugh Rhoades [place] [id number] Patient Name: PAULINA MONTERO MRN: [id number] date: 1990 Sex: M Assigned Patient Location: ER Current Patient Location: Accession/Order Number: [id number] Exam Date: 07/23/2024 03:00 Report Date: 07/23/2024 05:50 At the request of: HUGH RHOADES Procedure: XR acute abdomen series EXAM: XR acute abdomen series HISTORY: pain COMPARISON: Acute abdomen series dated 11/24/2023. TECHNIQUE: One view of the chest and 2 views of the abdomen were obtained. FINDINGS: The cardiac silhouette is normal in size. The lungs are clear. There is no significant pneumothorax or pleural effusion. No acute osseous abnormality is seen. There is a nonspecific bowel gas pattern without evidence of bowel obstruction. No intraperitoneal free air is seen. [place] screws are seen within the left glenoid. XR/XR acute abdomen series IMPRESSION: 1. No acute cardiopulmonary abnormality. 2. Nonspecific bowel gas pattern without evidence of bowel obstruction. Electronically authenticated by: Troy MICHAELS Date: 07/23/2024 05:50 Dictated By: Troy Michaels M.D. Signed By: 07/23/24 0553 DD/ 0550 TD/TT: Flight Data Technician: [place] [address] XRay Report Signed Patient: PAULINA MONTERO MR#: [id number] : 1990 Acct:[id number] Age/Sex: 34 / M ADM Date: 07/23/24 Loc: ER Attending Dr: Ordering Physician: Huhg Rhoades Date of Service: 07/23/24 Procedure(s): XR acu te abdomen series Accession Number(s): [id number] cc: Melody Mario M.D. ; Hugh Rhoades [place] [id number] Patient Name: PAULINA MONTERO MRN: [id number] date: 1990 Sex: M Assigned Patient Location: ER Current Patient Location: Accession/Order Numb er: [id number] Exam Date: 07/23/2024 03:00 Report Date: 07/23/2024 05:50 At the request of: HUGH RHOADES Procedure: XR acute abdomen series EXAM: XR acute abdom en series HISTORY: pain COMPARISON: Acute ab domen series dated 11/24/2023. TECHNIQUE: One view of the chest and 2 views of the abdomen were obtained. FINDINGS: The cardia c silhouette is normal in size. The lungs are clear. There is no significant pneumothorax or pleural effusion. No acute osseous abnormality is seen. There is a nonspecific bowel gas pattern without evidence of bowel obstruction . No intraperitoneal free air is seen. [place] screws are seen within the left glenoid. X R/XR acute abdomen series IMPRESSION: 1. No acute cardiopulmonary abnormality. 2. Nonspecific bowel gas pattern without evidence of bowel obstruction. Electronically authenticated by: Troy MICHAELS Date: 07/23/2024 05:50 Dictated By: Troy Michaels M.D. Signed By: 07/23/24 0553 DD/ 0550 TD/TT: Flight Data Technician: CBC AUTO DIFF Reviewed date:06/24/2025 08:34:49 AM Interpretation: Performing Lab: Notes/Report: [facility] , White Blood Count 15.9 4.0-11.0 10 3/uL Red Blood Count 5.76 4.70-6.10 10 6/uL Hemoglobin 16.7 14.0-18.0 g/dL Hematocrit 47.8 42.0-54.0 % Mean Corpuscular Volume 83.0 80.0-94.0 fL Mean Corpuscular Hemoglobin 29.0 25.9-34.0 pg Mean Corpuscular HGB Conc 34.9 29.9-35.2 g/dL Red Cell Distribution Width 13.9 11.0-15.0 % Platelet Count 456 150-450 10 3/uL Mean Platelet Volume 11.3 9.5-13.5 fL Neutrophils Percent Auto 72.5 43.0-75.0 % Lymphocytes Percent Auto 21.6 20.5-60.0 % Monocytes Percent Auto 4.7 1.7-12.0 % Eosinophils Percent Auto 0.4 0.9-7.0 % Basophils Percent Auto 0.4 0.2-2.0 % Immature Granulocytes Pct Auto 0.4 0.0-0.5 % Neutrophils Absolute Auto 11.5 1.4-6.5 10 3/uL Lymphocytes Absolute Auto 3.4 1.2-3.8 10 3/uL Monocytes Absolute Auto 0.8 0.3-0.8 10 3/uL Eosinophils Absolute Auto 0.1 0.0-0.7 10 3/uL Basophils Absolute Auto 0.1 0.0-0.1 10 3/uL Immature Granulocytes Abs Auto 0.06 0.00-0.03 10 3/uL Performing Lab: see note - [facility] PROF CHEM 8 (BAS METB) Reviewed date:06/24/2025 08:34:49 AM Interpretation: Performing Lab: Notes/Report: [facility] , Sodium 138 136-145 mmol/L Potassium 3.7 3.5-5.1 mmol/L Chloride 101 98-107 mmol/L Carbon Dioxide 13.3 21.0-32.0 mmol/L Anion Gap 27.4 Glucose 152 74-106 mg/dL Blood Urea Nitrogen 13.0 7.0-18.0 mg/dL Creatinine 1.58 0.70-1.30 mg/dL Estimated GFR ( Debra >60 >=60 mL/min/1.73m 2 Estimated GFR (Non- [place] 50 >=60 mL/min/1.73m 2 BUN Creatinine Ratio 8.2 Calcium 10.0 8.5-10.1 mg/dL Performing Lab: see note ML - [facility] LB PROF 14(COMP METB) Reviewed date:07/23/2024 11:51:12 AM Interpretation: Performing Lab: Notes/Report: [facility] , Sodium 139 136-145 mmol/L Potassium 3.1 3.5-5.1 mmol/L Chloride 98 98-107 mmol/L Carbon Dioxide 24.7 21.0-32.0 mmol/L Anion Gap 19.4 Glucose 134 74-106 mg/dL Blood Urea Nitrogen 11.0 7.0-18.0 mg/dL Creatinine 1.39 0.70-1.30 mg/dL Estimated GFR ( Debra >60 >=60 Estimated GFR (Non- [place]ileth 58 >=60 BUN Creatinine Ratio 7.9 Calcium 9.3 8.5-10.1 mg/dL Bilirubin Total 1.0 0.2-1.0 mg/dL Aspartate Amino Transferase 19 15-37 U/L Alanine Aminotransferase 42 16-63 U/L Alkaline Phosphatase 90 46-116 U/L Total Protein 8.0 6.4-8.2 g/dL Albumin Level 4.5 3.4-5.0 g/dL Globulin 3.5 Albumin Globulin Ratio 1.3 Performing Lab: see note ML - [facility] LB CBC AUTO DIFF Reviewed date:07/23/2024 11:51:12 AM Interpretation: Performing Lab: Notes/Report: [facility] , White Blood Count 15.2 4.0-11.0 10 3/uL Red Blood Count 5.70 4.70-6.10 10 6/uL Hemoglobin 16.4 14.0-18.0 g/dL Hematocrit 47.0 42.0-54.0 % Mean Corpuscular Volume 82.5 80.0-94.0 fL Mean Corpuscular Hemoglobin 28.8 25.9-34.0 pg Mean Corpuscular HGB Conc 34.9 29.9-35.2 g/dL Red Cell Distribution Width 13.8 11.0-15.0 % Platelet Count 467 150-450 10 3/uL Mean Platelet Volume 10.9 9.5-13.5 fL Neutrophils Percent Auto 66.2 43.0-75.0 % Lymphocytes Percent Auto 26.1 20.5-60.0 % Monocytes Percent Auto 6.7 1.7-12.0 % Eosinophils Percent Auto 0.4 0.9-7.0 % Basophils Percent Auto 0.3 0.2-2.0 % Immature Granulocytes Pct Auto 0.3 0.0-0.5 % Neutrophils Absolute Auto 10.1 1.4-6.5 10 3/uL Lymphocytes Absolute Auto 4.0 1.2-3.8 10 3/uL Monocytes Absolute Auto 1.0 0.3-0.8 10 3/uL Eosinophils Absolute Auto 0.1 0.0-0.7 10 3/uL Basophils Absolute Auto 0.0 0.0-0.1 10 3/uL Immature Granulocytes Abs Auto 0.05 0.00-0.03 10 3/uL Performing Lab: see note ML - [facility] LB CBC AUTO DIFF Reviewed date:07/23/2024 11:51:12 AM Interpretation: Performing Lab: Notes/Report: [facility] , White Blood Count 17.4 4.0-11.0 10 3/uL Red Blood Count 5.39 4.70-6.10 10 6/uL Hemoglobin 15.5 14.0-18.0 g/dL Hematocrit 44.3 42.0-54.0 % Mean Corpuscular Volume 82.2 80.0-94.0 fL Mean Corpuscular Hemoglobin 28.8 25.9-34.0 pg Mean Corpuscular HGB Conc 35.0 29.9-35.2 g/dL Red Cell Distribution Width 13.8 11.0-15.0 % Platelet Count 395 150-450 10 3/uL Mean Platelet Volume 10.5 9.5-13.5 fL Neutrophils Percent Auto 74.8 43.0-75.0 % Lymphocytes Percent Auto 18.3 20.5-60.0 % Monocytes Percent Auto 6.2 1.7-12.0 % Eosinophils Percent Auto 0.2 0.9-7.0 % Basophils Percent Auto 0.2 0.2-2.0 % Immature Granulocytes Pct Auto 0.3 0.0-0.5 % Neutrophils Absolute Auto 13.0 1.4-6.5 10 3/uL Lymphocytes Absolute Auto 3.2 1.2-3.8 10 3/uL Monocytes Absolute Auto 1.1 0.3-0.8 10 3/uL Eosinophils Absolute Auto 0.0 0.0-0.7 10 3/uL Basophils Absolute Auto 0.0 0.0-0.1 10 3/uL Immature Granulocytes Abs Auto 0.06 0.00-0.03 10 3/uL Performing Lab: see note ML - [facility] LB [place] (Eskalith(R)), Serum Reviewed date:07/18/2024 04:01:31 PM Interpretation: Performing Lab: Notes/Report: [facility] , [place] (Eskalith(R)), Serum <0.1 0.5-1.2 mmol/L A concentration of 0.5-0.8 mmol/L is advised for long-term use; concentrations of up to 1.2 mmol/L may be necessary during acute treatment. Verified by repeat analysis Detection Limit = 0.1 <0.1 indicates None Detected Performed at: - [facility] [address] [id number] Maintenance Painter Apprentice: Ned Delacruz PhD, Phone: [phone] Performing Lab: see note - [facility] LB AMYLASE Reviewed date:07/17/2024 03:46:50 PM Interpretation: Performing Lab: Notes/Report: [facility] , Amylase 65 25-115 U/L Performing Lab: see note ML - [facility] LB CBC AUTO DIFF Reviewed date:07/16/2024 01:46:37 PM Interpretation: Performing Lab: Notes/Report: [facility] , White Blood Count 15.5 4.0-11.0 10 3/uL Red Blood Count 4.82 4.70-6.10 10 6/uL Hemoglobin 13.6 14.0-18.0 g/dL Hematocrit 40.9 42.0-54.0 % Mean Corpuscular Volume 84.9 80.0-94.0 fL Mean Corpuscular Hemoglobin 28.2 25.9-34.0 pg Mean Corpuscular HGB Conc 33.3 29.9-35.2 g/dL Red Cell Distribution Width 14.1 11.0-15.0 % Platelet Count 312 150-450 10 3/uL Mean Platelet Volume 10.6 9.5-13.5 fL Neutrophils Percent Auto 61.1 43.0-75.0 % Lymphocytes Percent Auto 31.5 20.5-60.0 % Monocytes Percent Auto 6.0 1.7-12.0 % Eosinophils Percent Auto 0.8 0.9-7.0 % Basophils Percent Auto 0.3 0.2-2.0 % Immature Granulocytes Pct Auto 0.3 0.0-0.5 % Neutrophils Absolute Auto 9.5 1.4-6.5 10 3/uL Lymphocytes Absolute Auto 4.9 1.2-3.8 10 3/uL Monocytes Absolute Auto 0.9 0.3-0.8 10 3/uL Eosinophils Absolute Auto 0.1 0.0-0.7 10 3/uL Basophils Absolute Auto 0.1 0.0-0.1 10 3/uL Immature Granulocytes Abs Auto 0.05 0.00-0.03 10 3/uL Performing Lab: see note ML - [facility] LB CBC AUTO DIFF Reviewed date:07/15/2024 09:20:18 PM Interpretation: Performing Lab: Notes/Report: [facility] , White Blood Count 20.0 4.0-11.0 10 3/uL Red Blood Count 5.40 4.70-6.10 10 6/uL Hemoglobin 15.5 14.0-18.0 g/dL Hematocrit 44.6 42.0-54.0 % Mean Corpuscular Volume 82.6 80.0-94.0 fL Mean Corpuscular Hemoglobin 28.7 25.9-34.0 pg Mean Corpuscular HGB Conc 34.8 29.9-35.2 g/dL Red Cell Distribution Width 13.8 11.0-15.0 % Platelet Count 477 150-450 10 3/uL Mean Platelet Volume 10.8 9.5-13.5 fL Neutrophils Percent Auto 80.5 43.0-75.0 % Lymphocytes Percent Auto 14.0 20.5-60.0 % Monocytes Percent Auto 4.8 1.7-12.0 % Eosinophils Percent Auto 0.0 0.9-7.0 % Basophils Percent Auto 0.2 0.2-2.0 % Immature Granulocytes Pct Auto 0.5 0.0-0.5 % Neutrophils Absolute Auto 16.1 1.4-6.5 10 3/uL Lymphocytes Absolute Auto 2.8 1.2-3.8 10 3/uL Monocytes Absolute Auto 1.0 0.3-0.8 10 3/uL Eosinophils Absolute Auto 0.0 0.0-0.7 10 3/uL Basophils Absolute Auto 0.0 0.0-0.1 10 3/uL Immature Granulocytes Abs Auto 0.09 0.00-0.03 10 3/uL Performing Lab: see note ML - [facility] LB PROF 14(COMP METB) Reviewed date:06/25/2024 07:25:17 PM Interpretation: Performing Lab: Notes/Report: [facility] , Sodium 141 136-145 mmol/L Potassium 3.8 3.5-5.1 mmol/L Chloride 106 98-107 mmol/L Carbon Dioxide 25.8 21.0-32.0 mmol/L Anion Gap 13.0 Glucose 100 74-106 mg/dL Blood Urea Nitrogen 13.0 7.0-18.0 mg/dL Creatinine 1.11 0.70-1.30 mg/dL Estimated GFR ( Debra >60 >=60 Estimated GFR (Non- [place]ileth >60 >=60 BUN Creatinine Ratio 11.7 Calcium 8.8 8.5-10.1 mg/dL Bilirubin Total 0.3 0.2-1.0 mg/dL Aspartate Amino Transferase 13 15-37 U/L Alanine Aminotransferase 29 16-63 U/L Alkaline Phosphatase 73 46-116 U/L Total Protein 6.9 6.4-8.2 g/dL Albumin Level 3.5 3.4-5.0 g/dL Globulin 3.4 Albumin Globulin Ratio 1.0 Performing Lab: see note ML - [facility] MR shoulder RT wo con Reviewed date:04/02/2025 08:42:28 AM Interpretation: Performing Lab: Notes/Report: Source Facility: [place] [address] Magnetic Resonance Report Signed Patient: PAULINA MONTERO MR#: [id number] : 1990 Acct:[id number] Age/Sex: 35 / M ADM Date: 04/01/25 Loc: MRI Attending Dr: Melody Mario M.D. Ordering Physician: Melody Mario M.D. Date of Service: 04/01/25 Procedure(s): MR shoulder RT wo con Accession Number(s): [id number] cc: Melody Mario M.D. [place] [address] Patient Name: PAULINA MONTERO MRN: [id number] date: 1990 Sex: M Assigned Patient Location: MRI Current Patient Location: MRI Accession/Order Number: [id number] Exam Date: 04/01/2025 16:01 Report Date: 04/01/2025 22:44 At the request of: MELODY MARIO MD Procedure: MR shoulder RT wo con MRI right Shoulder without contrast TECHNIQUE: Multiplanar T1 and T2-weighted imaging obtained without contrast. HISTORY: Chronic right shoulder pain. Duration greater than 10 years. Previous sports injury. History of shoulder impingement. No history of surgery. COMPARISON: No comparison imaging BONE MARROW EDEMA: None FRACTURE: None AC JOINT: Extensive degenerative changes with large marginal spurs. Multiloculated cystic collection superior to the acromioclavicular joint. Findings may suggest communication of the subacromial subdeltoid bursal fluid with the acromioclavicular joint space. May suggest small geyser cyst. This measures up to 2.3 cm. SHOULDER ROOF LIGAMENTS: The coracoacromial and coracoclavicular ligaments are intact. ROTATOR CUFF: Signal artifact identified within the humeral head. Highly suggestive of an anchor screw from rotator cuff repair surgery. Large amount of fluid surrounds the suspected anchor screw. Findings suggestive of loosening. The infraspinatus tendon near the anchor screw is heterogeneous in signal intensity and thin suggesting high-grade partial undersurface articular tear. Tiny amount of subacromial subdeltoid bursal fluid is present. There is thickening of the supraspinatus tendon with heterogeneous signal changes suggesting high-grade tenosynovitis. Teres minor intact. Subscapularis tendon intact. ROTATOR CUFF INTERVAL: Unremarkable BURSAL FLUID: Small subacromial subdeltoid bursal fluid identified. GLENOID: Subtle chondromalacia suggestive of degenerative change. BICEPS LABRAL COMPLEX: Intact LONG HEAD OF BICEPS TENDON: Intact GLENOHUMERAL LIGAMENTS: The superior glenohumeral ligament is intact. The middle glenohumeral ligament is intact. The anterior and posterior glenohumeral ligaments are intact. JOINT EFFUSION: No significant joint effusion is seen. MUSCLES: Normal signal intensity of the muscles. NO SUBCUTANEOUS TISSUES: No subcutaneous abnormalities identified. MR/MR shoulder RT wo con IMPRESSION: finding of rotator cuff surgery with anchor screw within the humeral head. Surrounding the anchor screw there is a large amount of fluid. Findings would suggest loosening of the screw. There is also heterogeneous signal changes of the infraspinatus tendon and thinning and subarticular region near the anchor screw. Suggest high-grade partial articular surface tear. Thickening and heterogeneous signal changes of the supraspinatus tendon consistent with high-grade tendinosis. 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 Subtle chondromalacia of the glenoid consistent with degenerative change. Impression dictated by: Jovanni Casillas M.D. 04/01/2025 10:44 PM Dictation Location: [place] [address] Electronically authenticated by: [id number] Y Date: 04/01/2025 22:44 Dictated By: Jovanni Casillas D.O. Signed By: 04/01/252246 DD/ 43 TD/TT: Flight Data Technician: [place] [address] Magnetic Resonance Report Signed Patient: PAULINA MONTERO MR#: [id number] : 1990 Acct:[id number] Age/Sex: 35 / M ADM Date: 04/01/25 Loc: MRI Attending Dr: Jaquan Mario M.D. Ordering Physician: Melody Mario M.D. Date of Service: 04/01/25 Procedure(s): MR heidi vides RT wo con Accession Number(s): [id number] cc: Melody Mario M.D. [place] [address] Patient Name: PAULINA MONTERO MRN: [id number] date: 1990 Sex: M Assigned Patient Location: MRI Current Patient Loca tion: MRI Accession/Order Numb er: [id number] Exam Date: 04/01/2025 16:01 Report Date: 04/01/2025 22:44 At the request of: MELODY MARIO MD Procedure: MR should er RT wo con MRI right Shoulder without contrast TECHNIQUE: Multiplan ar T1 and T2-weighted imaging obtained without contrast. HISTORY: Chronic rig ht shoulder pain. Duration greater than 10 years. Previous sports inju ry. History of shoulder impingement. No history of surgery. COMPARISON: No demario rison imaging BONE MARROW EDEMA: None FRACTURE: None AC JOINT: Extensive degenerative changes with large marginal spurs. Multiloculated cysti c collection superior to the acromioclavicular joint. Findings may suggest communication of the subacromial subdeltoid bursal fluid with the acromioclavicular joint space. May suggest small geyser cyst. This measures up to 2.3 cm. SHOULDER ROOF LIGAME NTS: The coracoacromial and coracoclavicular ligaments are intact. ROTATOR CUFF: Signal artifact identified within the humeral head. Highly suggestive of an anc hor screw from rotator cuff repair surgery. Large amount of fluid surrounds t he suspected anchor screw. Findings suggestive of loosening. The infraspinatus tendon near the anchor screw is heterogeneous in signal intensity and thin suggesting high-grade partial undersurface articular tear. Tiny amount of subacromial subdeltoid bursal fluid is present. There is thickening of the supraspinatus tendon with heterogeneous signal changes suggesting high-grad e tenosynovitis. Teres minor intact. Subscapularis tendon intact. ROTATOR CUFF INTERVA L: Unremarkable BURSAL FLUID: Small subacromial subdeltoid bursal fluid identified. GLENOID: Subtle chondromalacia suggestive of degenerative change. BICEPS LABRAL COMPLE X: Intact LONG HEAD OF BICEPS TENDON: Intact GLENOHUMERAL LIGAMEN TS: The superior glenohumeral ligament is intact. The middle glenohumeral ligament is intact. The anterior and posterior glenohumeral ligamen ts are intact. JOINT EFFUSION: No significant joint effusion is seen. MUSCLES: Normal sign al intensity of the muscles. NO SUBCUTANEOUS TISS UES: No subcutaneous abnormalities identified. M R/MR shoulder RT wo con IMPRESSION: finding of rotator c uff surgery with anchor screw within the humeral head. Surrounding the anch or screw there is a large amount of fluid. Findings would suggest loosening of the screw. There is also heterogeneous signal changes of the infraspinatus te ndon and thinning and subarticular region near the anchor screw. Suggest high- grade partial articular surface tear. Thickening and heterogeneous signal changes of the supraspinatus tendon consistent with high-grade tendinosi s. 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 Subtle chondromalacia of the glenoid consistent with degenerative change. Impression dictated by: Jovanni Casillas M.D. 04/01/2025 10:44 PM [facility]ictation [facility] Electronically authenticated by: [id number] Y Date: 04/01/2025 22:44 Dictated By: Santana Casillas D.O. Signed By: 04/01/252246 DD/ 43 TD/TT: Flight Data Technician: XR foot RT min 3V Reviewed date:04/02/2025 08:42:28 AM Interpretation: Performing Lab: Notes/Report: Source Facility: [place] [address] [place] [address] XRay Report Signed Patient: PAULINA MONTERO MR#: [id number] : 1990 Acct:[id number] Age/Sex: 34 / M ADM Date: 10/23/24 Loc: EC Attending Dr: Shalini Michele D.P.M. Ordering Physician: Shalini Michele D.P.M. Date of Service: 10/23/24 Procedure(s): XR foot RT min 3V Accession Number(s): [id number] cc: Shalini Michele D.P.M.; Melody Mario M.D. [place] [address] Patient Name: PAULINA MONTERO MRN: [id number] date: 1990 Sex: M Assigned Patient Location: Current Patient Location: Accession/Order Number: [id number] Exam Date: 10/23/2024 13:20 Report Date: 10/25/2024 05:44 At the request of: SHALINI MICHELE Procedure: XR foot RT min 3V PROCEDURE: XR foot RT min 3V HISTORY: RIGHT FOOT PAIN COMPARISON: XR foot right 07/10/2024 FINDINGS: BONES:Prior medial midfoot fusion without evidence of hardware fracture loosening. No bone fracture dislocation. SOFT TISSUES:No visible soft tissue swelling. EFFUSION:None visible. OTHER: Negative. XR/XR foot RT min 3V IMPRESSION: 1. Stable surgical changes without evidence of hardware failure or change in alignment. Electronically authenticated by: ANDREW BENSON Date: 10/25/2024 05:44 Dictated By: Andrew Benson M.D. Signed By: 10/25/2447 DD/ 3 TD/TT: Flight Data Technician: [place] [address] XRay Report Signed Patient: PAULINA MONTERO MR#: [id number] : 1990 Acct:[id number] Age/Sex: 34 / M ADM Date: 10/23/24 Loc: EC Attending Dr: Shalini Michele D.P.M. Ordering Physician: Shalini Michele D.P.M. Date of Service: 10/23/24 Procedure(s): XR abby t RT min 3V Accession Number(s): [id number] cc: Shalini Michele D.P.M.; Melody Mario M.D. [place] [id number] Patient Name: PAULINA MONTERO MRN: [id number] date: 1990 Sex: M Assigned Patient Location: Current Patient Location: Accession/Order Numb er: [id number] Exam Date: 13:20 Report Date: 10/25/2024 05:44 At the request of: SHALINI MICHELE Procedure: XR foot R T min 3V PROCEDURE: XR foot R T min 3V HISTORY: RIGHT FOOT PAIN COMPARISON: XR foot right 07/10/2024 FINDINGS: BONES:Prior medial midfoot fusion without evidence of hardware fracture loosening. No bone fracture dislocation. SOFT TISSUES:No visi ble soft tissue swelling. EFFUSION:None visible. OTHER: Negative. X R/XR foot RT min 3V IMPRESSION: 1. Stable surgical changes without evidence of hardware failure or change in alignment. Electronically authenticated by: ANDREW BENSON Date: 10/25/2024 05:44 Dictated By: Andrew Benson M.D. Signed By: 10/25/2447 DD/ TD/TT: Flight Data Technician: Reason For Referral Diagnosis 1 Bipolar disorder (F3 1.9) Referral Organization [facility] Referring Provider First Name Eliecer Referring Provider Last Name Shelbi Referring Provider [facility] Referred Provider She Tucker Referred Provider Specialty Psychiatry Referral Priority Routine Diagnosis 1 Rotator cuff tendini tis, right (M75.81) Referral Organization [facility] Referring Provider First Name Eliecer Referring Provider Last Name Shelbi Referring Provider [facility] js Referred Provider Lane Gibbons Referred Provider Specialty Orthopedic S urgery Referral Priority Routine Diagnosis 1 Rotator cuff tear (M 75.100) Referral Organization [facility] Referring Provider First Name Eliecer Referring Provider Last Name Shelbi Referring Provider [facility] Referred Provider Gerald Matute Referred Provider Specialty Orthopedic S urgery Referral Priority Routine Medications Medication SIG (Take, Route, Frequency, Duration) Notes Start Date End Date Status Reglan 10 MG 1 tablet before meal s Orally ac and hs for 30 days 06/24/2025 Active ZyPREXA 5 MG 1 tablet Orally bid for 15 days 06/24/2025 Active Promethazine HCl 25 MG 1 suppository as needed Rectal every 12 hrs for 30 days 06/24/2025 Active Nabumetone 500 MG TAKE 1 TABLET BY KARINA TH TWICE A DAY FOR 30 DAYS for 30 Active Promethazine HCl 25 MG 1 tablet as neede d Orally q6h for 30 days 06/24/2025 Active Propranolol HCl 80 MG TAKE 1 TABLET BY M OUTH EVERY DAY for 90 Active Viagra 100 MG 1 tablet as needed O rally Once a day for 30 days 06/11/2025 Active Amphetamine-Dextroamphetami ne 30 MG 1 tablet Orally q day 06/07/2025 Active hydrOXYzine Pamoate 25 MG TAKE 1 CAPSULE BY MOUTH FOUR TIMES A DAY NEEDED for 90 Active Takilma Carbonate 300 MG 1 capsule at be dtime Orally Once a day for 30 day(s) 03/11/2025 Active Social History Tobacco Use: Social History Observation Description Date Details (start date - stop date) Never Smoker NA - NA Tobacco Use/Smoking Question Answer Notes Patient is a nonsmoker Alcohol Screen (Audit-C) Question Answer Notes Did you have a drink containing alcohol in the p ast year? No Points 0 Interpretation Negative AUDIT-C (Standard) Question Answer Notes Did you have a drink containing alcohol in the p ast year? 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) Active confirmed Problem 570861910 Other acquired deformities of right foot (M21.6X1) Active confirmed Problem 54074796 Displaced fractu re of navicular [scaphoid] of right foot, initial encounter for closed fracture (S92.251A) Active confirmed Problem 66511380 Displaced fractu re of navicular [scaphoid] of right foot, sequela (S92.251S) Active confirmed Problem 04451397 Sprain of tarsometatarsal ligament of right foot, sequela (S93.621S) Active confirmed Problem Exposure to communicable disease (201055431) Contact with and (suspected) exposure to other viral communicable diseases (Z20.828) Active confirmed Problem Fatigue (66543163) Fatigue (R53.83) Active conf irmed Problem Hyperlipidemia (18857181) Hyperlipidemia (E78.5) Active confirmed Problem Morbid obesity (829810239) Morbid obesity (E66.01) Active confirmed Problem Anxiety (91494699) Anxiety (F41.9) Active confi rmed Problem Sleep apnea (84364717) Sleep apnea (G47.30) Active confirmed Problem Obstructive sleep apnea syndrome (18395942) RINA (obstructive sleep apnea) (G47.33) Active confirmed Problem Bipolar 1 disorder (568809948) Bipolar 1 disorder (F31.9) Active confirmed Problem Insomnia (397157843) Insomnia (G47.00) Active c onfirmed Problem Bipolar disorder (11494764) Bipolar disorder (F31.9) Active confirmed Problem Atypical chest pain (157295075) Atypical chest pain (R07.89) Active confirmed Problem Pain in right foot (831053127057817) Right foot pain (M79.671) Active confirmed Problem Acute bronchitis (67522315) Acute bronchitis (J20.9) Active confirmed Problem Fever (749144254) Fever (R50.9) Active confirme d Problem Irritable bowel syndrome (37983045) Irritable bowel syndrome (K58.9) Active confirmed Problem Hives (587027321) Hives (L50.9) Active confirme d Problem Rotator cuff tear (953089180) Rotator cuff tear (M75.100) Active confirmed Problem Overweight (377434249) Over weight (E66.3) Active confirmed Problem Generalized abdomina l pain (898343353) Abdominal pain, generalized (R10.84) Active confirmed Problem Iron deficiency anemia (98897914) Anemia, iron deficiency (D50.9) Active confirmed Problem 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 Problem Chest pain (93566775) Chest pain of uncertain etiology (R07.89) Active confirmed Problem Body mass index 40+ - morbidly obese (781124466) BMI 40.0-44.9, adult (Z68.41) Active confirmed Problem Diabetic on diet onl y (326186953) Diabetic on diet only (E11.9) Active confirmed Problem Lesion of ulnar nerv e (998579927) Ulnar nerve entrapment, left (G56.22) Active confirmed Problem Lesion of ulnar nerv e (168709501) Ulnar nerve entrapment, right (G56.21) Active confirmed Problem Tendinitis of right rotator cuff (disorder) (63200891114105670) Rotator cuff tendinitis, right (M75.81) Active confirmed Problem Leukocytosis (050893446) Elevated WBCs (D72.829) Active confirmed Problem Cyclical vomiting (82830613) Cyclical vomiting (G43.A0) Active confirmed Problem Hypercholesterolemia (73992194) Hypercholesterolemia (E78.00) Active confirmed Problem Cannabis hyperemesis syndrome co-occurrent and due to cannabis abuse (disorder) (05770692537995818) Cannabinoid hyperemesis syndrome (F12.988) Active confirmed Problem Acquired thrombocytopenia (97672623) Acquired thrombocytopenia (D69.6) Active confirmed Problem Mixed anxiety and depressive disorder (801062096) Anxiety and depression (F41.8) Active confirmed Problem Localized, primary osteoarthritis of the shoulder region (247013560) AC joint arthropathy (M19.019) Active confirmed Problem Attention deficit hyperactivity disorder (957292853) ADHD (F90.9) Active confirmed Problem COVID-19 (644873109) COVID-19 (U07.1) Active co nfirmed Problem Esophagitis (53216410) Esophagitis (K20.90) Active confirmed Problem Cough (56398736) Cough (R05.9) Active confirmed Vital Signs Heart Rate 82 /min 10/23/2024 Temperature 99.3 degrees Fahrenheit 06/24/2025 Respiratory Rate 16 /min 08/01/2024 Blood pressure diastolic 88 mm Hg 06/24/2025 Oximetry 99 % 10/23/2024 Height 69.5 in 06/24/2025 Blood pressure systolic 140 mm Hg 06/24/2025 Weight 272 lbs 06/24/2025 BMI 39.59 kg/m2 06/24/2025 Encounters Encounter Location Date Provider Diagnosis [facility] (PODIATRY) [address] [place] [address] 07/10/2024 Shalini Michele Primary osteoarthritis, right ankle and foot M19.071 ; Pain due to internal orthopedic prosthetic devices, implants and grafts, initial encounter T84.84XA and Right foot pain M79.671 [facility] (PODIATRY) [address] [place] [address] 07/25/2024 Shalini Michele [facility] (PODIATRY) [address] [place] [address] 08/01/2024 Shalini Michele Primary osteoarthritis, right ankle and foot M19.071 and Pain due to internal orthopedic prosthetic devices, implants and grafts, initial encounter T84.84XA [facility] (PODIATRY) [address] [place] [address] 10/23/2024 Shalini Michele Post-traumatic osteoarthritis, right ankle and foot M19.[address] [address] 06/11/2025 Eliecer Hoy Fatigue R53.83 ; Bipolar disorder, unspecified F31.9 ; Rotator cuff tendinitis, right M75.81 and Rotator cuff tear M75.[address] [address] 06/24/2025 Eliecer Hoy Cyclical vomiting G43.A0 [address] [address] 07/30/2024 Eliecer Hoy Bipolar disorder F31.9 and Cyclic vomiting syndrome R11.[address] [address] 02/11/2025 Eliecer Hoy Sleep apnea G47.30 and Fatigue R53.[address] [place] [address] 03/11/2025 Eliecer Hoy Anxiety F41.9 ; Bipolar 1 disorder F31.9 and Shoulder impingement M75.40 [facility] [address] [place] [address] 04/04/2025 Eliecer Hoy Rotator cuff tear M75.100 [facility] [address] [facility] [place] [address] 05/09/2025 Eliecer Hoy Rotator cuff tendinitis, right M75.81 and Bipolar 1 disorder F31.9 [facility] [address] [facility] [place] [address] 04/19/2025 Eliecer Hoy Rotator cuff tendinitis, right M75.81 and AC joint arthropathy M19.019 [facility] [address] [facility] [place] [address] 04/17/2025 Eliecer Hoy Bipolar 1 disorder F31.9 [facility] [address] [facility] [place] [address] 04/19/2025 Eliecer Hoy Rotator cuff tendinitis, right M75.81 [facility] [address] [facility] [facility] [place] [address] 04/26/2025 Eliecer Hoy [facility] [address] [facility] [place] [address] 06/07/2025 Eliecer Hoy Rotator cuff tendinitis, right M75.81 [facility] [address] [facility] [place] [address] 06/11/2025 Eliecer Hoy Rotator cuff tear M75.100 [facility] [address] [facility] [place] [address] 06/24/2025 Eliecer Hoy [facility] [address] [facility] [place] [address] 10/03/2024 Eliecer Hoy Bipolar disorder F31.9 [facility] [address] [facility] [place] [address] 11/16/2024 Eliecer Hoy Bipolar disorder F31.9 [facility] [address] [facility] [place] [address] 01/01/2025 Eliecer Hoy Bipolar disorder F31.9 [facility] [address] [facility] [place] [address] 04/02/2025 Eliecer luisa [facility] [address] [facility] [place] [address] 04/04/2025 Eliecer luisa [facility] [address] [facility] [place] [address] 04/08/2025 Eliecer luisa [facility] [address] [facility] [place] [address] 06/25/2024 Eliecer luisa [facility] [address] [facility] [place] [address] 06/26/2024 Eliecer Hoy Bipolar disorder F31.9 and Takilma toxicity T56.891A [facility] [address] [facility] [place] [address] 07/16/2024 Eliecer Hoy [facility] [address] [facility] [place] [address] 07/19/2024 Eliecer [facility] [address] [facility] [facility] [place] [address] 07/30/2024 Eliecer Hoy Bipolar disorder F31.9 [facility] [address] [facility] [place] [address] 08/30/2024 Eliecer Hoy Bipolar disorder F31.9 Assessments Encounter Date Diagnosis (ICD Code) Assessment Notes Treatment Notes Treatment Clinical Notes Section Notes 07/10/2024 Primary osteoarthritis, right ankle and foot (ICD-10 - M19.071) Patient seen and evaluated. Patient education provided. Patient is continuing to improve however having localized pain over the dorsal aspect of the naviculocuneiform joint. My hope is that pain is secondary to the hardware and that not nonunion given it is difficult to truly assess degree of bone formation at the naviculocuneiform joint with plain x-rays. Therefore, CT scan was ordered. He will follow-up for CT scan review once obtained no new x-rays at that time.I did discuss return to work date which will hopefully be within the next [address] scan and his comfort. 07/10/2024 Pain due to internal orthopedic prosthetic devices, implants and grafts, initial encounter (ICD-10 - T84.84XA) 07/30/2024 Bipolar disorder (ICD-10 - F31.9) 07/30/2024 Cyclic vomiting syndrome (ICD-10 - R11.15) 08/01/2024 Primary osteoarthritis, right ankle and foot (ICD-10 - M19.071) Patient presents today normal shoes relating to improvement in pain and function. I did review his CT scan which is promising showing partial union at the fusion site. Patient may increase activities as he tolerates. Some of this pain may be from healing this surgery versus the hardware. If his pain does not subside over the next 2 to 3 months may consider hardware removal but will follow-up with him at that time with repeat weightbearing foot x-rays 08/01/2024 Pain due to internal orthopedic prosthetic devices, implants and grafts, initial encounter (ICD-10 - T84.84XA) 10/23/2024 Post-traumatic osteoarthritis, right ankle and foot (ICD-10 - M19.171) Patient is doing very well and is happy with his surgical outcome. I have no restrictions for him and he may follow-up as needed 02/11/2025 Fatigue (ICD-10 - R53.83) 02/11/2025 Sleep apnea (ICD-10 - G47.30) 03/11/2025 Anxiety (ICD-10 - F41.9) 03/11/2025 Bipolar 1 disorder (ICD-10 - F31.9) 06/24/2025 Cyclical vomiting (ICD-10 - G43.A0) 06/26/2024 Bipolar disorder (ICD-10 - F31.9) 06/26/2024 Takilma toxicity (ICD-10 - T56.891A) 07/30/2024 Bipolar disorder (ICD-10 - F31.9) 08/30/2024 Bipolar disorder (ICD-10 - F31.9) 10/03/2024 Bipolar disorder (ICD-10 - F31.9) 11/16/2024 Bipolar disorder (ICD-10 - F31.9) 01/01/2025 Bipolar disorder (ICD-10 - F31.9) 04/17/2025 Bipolar 1 disorder (ICD-10 - F31.9) 04/19/2025 Rotator cuff tendinitis, right (ICD-10 - M75.81) 06/07/2025 Rotator cuff tendinitis, right (ICD-10 - M75.81) 06/11/2025 Rotator cuff tear (ICD-10 - M75.100) 04/04/2025 Rotator cuff tear (ICD-10 - M75.100) 05/09/2025 Bipolar 1 disorder (ICD-10 - F31.9) 05/09/2025 Rotator cuff tendinitis, right (ICD-10 - M75.81) 04/19/2025 Rotator cuff tendinitis, right (ICD-10 - M75.81) 04/19/2025 AC joint arthropathy (ICD-10 - M19.019) 06/11/2025 Bipolar disorder, unspecified (ICD-10 - F31.9) 06/11/2025 Fatigue (ICD-10 - R53.83) 06/11/2025 Rotator cuff tendinitis, right (ICD-10 - M75.81) 03/11/2025 Shoulder impingement (ICD-10 - M75.40) shoulder laxity in R shoilder - eeds MRI - hx Surcial repair 07/10/2024 Right foot pain (ICD-10 - M79.671) 06/11/2025 Rotator cuff tear (ICD-10 - M75.100) 04/04/2025 Other Recommended to rest and use a heating pad on the area. Take NSAIDs for pain as needed Plan Of Treatment Pending Test Test Name Order Date XR Foot RT (3 views) * 07/10/2024 CT Foot RT w/o contrast * (Optional 3D R endering) 07/10/2024 COMPREHENSIVE METABOLIC PROFILE WITH GFR 06/22/2024 BMP - Basic Metabolic Panel 06/26/2024 CBC AUTO DIFF 07/29/2023 LITHIUM 03/28/2023 LITHIUM 07/29/2023 LITHIUM 03/11/2025 LITHIUM 05/09/2025 LITHIUM 06/22/2024 LITHIUM 06/11/2025 MAGNESIUM 06/11/2025 PROF 14(COMP METB) 07/29/2023 PROF CHEM 8 (BAS METB) 03/28/2023 PROF CHEM 8 (BAS METB) 05/09/2025 PROF CHEM 8 (BAS METB) 03/11/2025 THYROID PROFILE WITH TSH 07/29/2023 MRI SHOULDER RT WO CON 03/11/2025 XR FOOT RT MIN 3 VIEWS 12/22/2023 THYROID PANEL (T4/TSH/FREE T3) MRI FOOT RT WO CON 12/22/2023 Takilma (Eskalith(R)), Serum 08/04/2023 CMP (COMP MET CLAUDIO) w/eGFR CKD-EPI 2024 CBC WITH DIFF 06/11/2025 Insurance Providers Payer Name Payer Address Payer Phone Subscriber Number Group Number Insured Name Patient Relationship to Insured Coverage Start Date Coverage End Date [facility] [address] [address] [place] [address] [id number] Paulina Montero Self - patient is the insured 4 Medications Administered Medication Instructions Date of Administration Dosage Notes Ketorolac Tromethamine 06/24/2025 60 mg Orphenadrine Citrate 06/24/2025 60 mg Promethazine 25mg 06/24/2025 2 mL Medical (General) History Medical History History ICD Code Sleep apnea G47.30 Chest pain of uncertain etiology R07.89 Over weight E66.3 COVID-19 U07.1 Cough R05.9 Fever R50.9 Contact with and (suspected) exposure to other viral communicable diseases Z20.828 Cyclical vomiting G43.A0 Irritable bowel syndrome K58.9 Esophagitis K20.90 Abdominal pain, generalized R10.84 Pain in right foot M79.671 Acute bronchitis J20.9 Ulnar nerve entrapment, right G56.21 Fatigue R53.83 Hives L50.9 Anxiety and depression F41.8 Morbid obesity E66.01 Insomnia G47.00 BMI 40.0-44.9, adult Z68.41 Atypical chest pain R07.89 Hyperlipidemia E78.5 Ulnar nerve entrapment, left G56.22 RINA (obstructive sleep apnea) G47.33 Diabetic on diet only E11.9 Hypercholesterolemia E78.00 ADHD F90.9 Hemangioma unspecified site D18.00 Surgical History Surgery Date(Month/Year) Rt shoulder surgery x2 Excision Hemangioma Rt lower back 7 Left Cubital Tunnel Release 08/30/17 EGD/Colonoscopy 03/24/20 Left Shoulder surgery x2 fusion of medial cuneiform-navicular radha nt right 03/19/24 Hospitalization History Reason Date(Month/Year) Multiple for IBS and Cyclic Vomiting syn drome
[2025-06-25] MEDS: KETOROLAC TROMETHAMINE 30 MG/ML VIAL 15 MG IVP (10:07)
[2025-06-25] MEDS: 0.9 % SODIUM CHLORIDE 1,000 ML 1000 ML IV ×2 (10:07→11:04)
[2025-06-25] MEDS: PROCHLORPERAZINE 10 MG/2 ML VIAL IV (10:08)
[2025-06-25] MEDS: DIPHENHYDRAMINE HCL 50 MG/ML VIAL 25 MG IVP (10:08)
[2025-06-25 10:12] LABS: Hematocrit 45.1 % (42.0-54.0); Hemoglobin 15.5 g/dL (14.0-18.0); Immature Granulocytes Abs Auto 0.15 10^3/uL (0.00-0.03); Immature Granulocytes Pct Auto 0.7 % (0.0-0.5); Lymphocytes Absolute Auto 3.4 10^3/uL (1.2-3.8); Mean Corpuscular HGB Conc 34.4 g/dL (29.9-35.2); Mean Corpuscular Hemoglobin 28.5 pg (25.9-34.0); Mean Corpuscular Volume 82.9 fL (80.0-94.0); Platelet Count 400 10^3/uL (150-450); Red Blood Count 5.44 10^6/uL (4.70-6.10); White Blood Count 22.3 10^3/uL (4.0-11.0)
[2025-06-25 10:18] LABS: Alanine Aminotransferase 50 U/L (16-63); Albumin Globulin Ratio 1.1; Albumin Level 4.4 g/dL (3.4-5.0); Alkaline Phosphatase 81 U/L (46-116); Anion Gap 22.1; Aspartate Amino Transferase 26 U/L (15-37); Blood Urea Nitrogen 16.0 mg/dL (7.0-18.0); Calcium 9.2 mg/dL (8.5-10.1); Carbon Dioxide 17.6 mmol/L (21.0-32.0); Chloride 102 mmol/L (98-107); Estimated GFR (African America >60 (>=60 mL/min/1.73m^2); Estimated GFR (Non-African Ame 60 (>=60 mL/min/1.73m^2); Globulin 3.9 g/dL; Glucose 132 mg/dL (74-106); Lipase 29.0 U/L (16.0-77.0); Potassium 3.7 mmol/L (3.5-5.1); Sodium 138 mmol/L (136-145); Total Protein 8.3 g/dL (6.4-8.2)
--- NOTE | 2025-06-25 13:24 | ED.GENADUL1 ---
HPI HPI - General Adult General Chief complaint: Abdominal Pain Stated complaint: DEHYDRATION Time Seen by Provider: 06/25/25 09:45 Source: patient Mode of arrival: walk-in Limitations: no limitations History of Present Illness HPI narrative: The patient is a 35-year-old male with history of cyclic vomiting due to marijuana, scented to us after he had a history of smoking marijuana and started to vomit few days ago he also presented to another ER yesterday where he was provided IV fluid. Apparently he contacted his primary care doctor who sent him prescription to the pharmacy but he could not go get the prescription yet and he came here to get hydrated The patient is complaining of nausea nonspecific abdominal pain and vomiting similar to his previous presentations Related Data Home Medications ?Medication ?Instructions ?Recorded ?Confirmed clonidine HCl 0.1 mg tablet 0.2 mg PO BID 11/17/23 06/25/25 hydroxyzine pamoate 25 mg capsule 25 mg PO QID PRN anxiety 11/17/23 06/25/25 lithium carbonate 300 mg capsule 300 mg PO BEDTIME 11/17/23 06/25/25 multivitamin (Daily Multi-Vitamin 1 tab PO DAILY 03/09/24 06/25/25 tablet) ibuprofen 800 mg tablet 800 mg PO Q8H PRN pain 07/16/24 06/25/25 propranolol 80 mg capsule,24 80 mg PO DAILY 07/17/24 06/25/25 hr,extended release (Inderal LA) dextroamphetamine-amphetamine 30 30 mg PO DAILY 06/25/25 06/25/25 mg tablet nabumetone 500 mg tablet 500 mg PO BID 06/25/25 06/25/25 sildenafil 100 mg tablet 100 mg PO DAILY 06/25/25 06/25/25 Previous Rx's ?Medication ?Instructions ?Recorded dicyclomine 10 mg capsule 10 mg PO QID PRN abdominal pain 07/23/24 #12 caps ondansetron 4 mg disintegrating 4 mg PO Q6H PRN nausea and 06/24/25 tablet vomiting #20 tabs Allergies Allergy/AdvReac Type Severity Reaction Status Date / Time Penicillins Allergy Severe Unknown Verified 06/24/25 02:00 clarithromycin (From Biaxin) Allergy Unknown Verified 06/24/25 02:00 sulfamethoxazole (From Allergy unknown Verified 06/24/25 02:00 Bactrim) trimethoprim (From Bactrim) Allergy unknown Verified 06/24/25 02:00 Opioid HPI Opioid Management Most Recent Opioid Data: Last Pain Scale 9 Today, 10:07 Last MAR Pain Assessment Today, 10:07 Last ORT Total Score 16 07/17/24, 08:28 Last ORT Risk Category High Risk 07/17/24, 08:28 Ur Phencyclidine Scrn, (NEGATIVE) Negative 07/21/24, 04:15 Review of Systems ROS Status of ROS 10 or more systems reviewed and unremarkable except as noted in history and below [facility] Medical History (Updated 06/25/25 @ 15:20 by Kay Dove MD) JCARLOS (acute kidney injury) ?N17.9 - Acute kidney failure, unspecified (ICD-10) Dehydration ?E86.0 - Dehydration (ICD-10) Bipolar disorder (manic depression) ?F31.9 - Bipolar disorder, unspecified (ICD-10) Acquired deformity of right foot ?M21.961 - Unspecified acquired deformity of right lower leg (ICD-10) Displaced fracture of navicular [scaphoid] of right foot, sequela ?S92.251S - Displaced fracture of navicular [scaphoid] of right foot, sequela (ICD-10) Sprain of tarsometatarsal ligament of right foot ?S93.621A - Sprain of tarsometatarsal ligament of right foot, initial encounter (ICD-10) Post-traumatic osteoarthritis, right ankle and foot ?M19.171 - Post-traumatic osteoarthritis, right ankle and foot (ICD-10) Hemangioma ?D18.00 - Hemangioma unspecified site (ICD-10) Ulnar nerve entrapment ?G56.20 - Lesion of ulnar nerve, unspecified upper limb (ICD-10) Bronchitis ?J40 - Bronchitis, not specified as acute or chronic (ICD-10) Foot pain ?M79.673 - Pain in unspecified foot (ICD-10) Esophagitis ?K20.90 - Esophagitis, unspecified without bleeding (ICD-10) Cyclical vomiting ?R11.15 - Cyclical vomiting syndrome unrelated to migraine (ICD-10) Sciatica ?M54.30 - Sciatica, unspecified side (ICD-10) Insomnia ?G47.00 - Insomnia, unspecified (ICD-10) PTSD (post-traumatic stress disorder) ?F43.10 - Post-traumatic stress disorder, unspecified (ICD-10) Panic attacks ?F41.0 - Panic disorder [episodic paroxysmal anxiety] (ICD-10) Depression ?F32.A - Depression, unspecified (ICD-10) Anxiety ?F41.9 - Anxiety disorder, unspecified (ICD-10) Electronic cigarette use ?Z78.9 - Other specified health status (ICD-10) COVID-19 ?U07.1 - COVID-19 (ICD-10) Sleep apnea ?G47.30 - Sleep apnea, unspecified (ICD-10) GERD (gastroesophageal reflux disease) ?K21.9 - Gastro-esophageal reflux disease without esophagitis (ICD-10) Prediabetes ?R73.03 - Prediabetes (ICD-10) Abdominal pain ?R10.9 - Unspecified abdominal pain (ICD-10) Nausea & vomiting ?R11.2 - Nausea with vomiting, unspecified (ICD-10) Surgical History H/O shoulder surgery ?Z98.890 - Other specified postprocedural states (ICD-10) H/O colonoscopy ?Z98.890 - Other specified postprocedural states (ICD-10) History of esophagogastroduodenoscopy (EGD) ?Z98.890 - Other specified postprocedural states (ICD-10) S/P cubital tunnel release ?Z98.890 - Other specified postprocedural states (ICD-10) History of surgical removal of skin lesion ?Z98.890 - Other specified postprocedural states (ICD-10) ?Z87.2 - Personal history of diseases of the skin and subcutaneous tissue (ICD-10) Family History Other Family history of diabetes mellitus Family history of heart disease Family history of hypertension Family history of myocardial infarction Social History Within the past year, how often did you have a drink containing alcohol: never Score interpretation: A score less than 4 is consistent with normal alcohol consumption. Smoking status: Current some day smoker Do you use any of these nicotine containing products: vaping products Non-prescribed substance use: cannabis (any form) Previous occupational history: [employer] Highest level of school completed/degree received: high school graduate Are you now , , , , never or living with a partner: In a typical week, how many times do you talk on the telephone with family, friends, or neighbors: 3 or more times per week How often do you get together with friends or relatives: 3 or more times per week How often do you attend jewish or faith services: never Do you belong to any clubs or organizations such as jewish groups unions, [id number] or athletic groups, or school groups: no Total score: 2 Score interpretation: A score of greater than or equal to 2 indicates the lowest level of social isolation. Little interest or pleasure in doing things: not at all Feeling down, depressed, or hopeless: not at all Feel stressed/tense/nervous/anxious/difficulty sleeping: to some extent Exam Narrative Exam Narrative: Nurses notes and vital signs reviewed and patient is not hypoxic. General: Well-appearing and in no apparent distress. Skin: Warm, dry, no pallor noted. No rash. Head: Normocephalic, atraumatic. Neck: Supple, non-tender. Eye: Pupils are equal, round and EOMI. No scleral icterus. Cardiovascular: Regular Rate and Rhythm without murmur, gallop or rub. Respiratory: No accessory muscle use or respiratory distress. Lungs are clear to auscultation, no wheezing, rales or rhonchi Chest Wall: no tenderness Back: No midline thoracic or lumbar vertebral tenderness. No CVA tenderness Musculoskeletal: normal ROM, no calf or popliteal tenderness, no lower extremity edema/swelling GI: Abdomen is soft, non-distended. Normal bowel sounds. No masses appreciated. No tenderness to palpation. No rebound, guarding, or rigidity noted. Neurological: A&O x4. No cranial nerve dysfunction observed. No truncal ataxia. Moves all extremities. Sensation intact. Psychiatric: Cooperative and interactive. Normal mood and affect. Constitutional Vital Signs, click to edit/add: Last Vital Signs Temp 99.7 F 06/25/25 09:34 Pulse 66 06/25/25 09:34 Resp 20 06/25/25 09:34 BP 131/73 06/25/25 13:00 Pulse Ox 96 06/25/25 13:00 O2 Del Method Room Air 06/25/25 10:00 Course Vital Signs Vital signs: Vital Signs Temperature 99.7 F 06/25/25 09:34 Pulse Rate 66 06/25/25 09:34 Respiratory Rate 20 06/25/25 09:34 Blood Pressure 187/93 H 06/25/25 09:34 Pulse Oximetry 97 06/25/25 09:34 Oxygen Delivery Method Room Air 06/25/25 09:34 Temperature 99.7 F 06/25/25 09:34 Pulse Rate 66 06/25/25 09:34 Respiratory Rate 20 06/25/25 09:34 Blood Pressure 131/73 06/25/25 13:00 Pulse Oximetry 96 06/25/25 13:00 Oxygen Delivery Method Room Air 06/25/25 10:00 Medical Decision Making MDM Narrative Medical decision making narrative: Patient already had a blood workup showing some leukocytosis although there is no specific infection signs as the patient does have vomiting but there is no abdominal pain on examination The patient also had a chemistry showing acute kidney injury with metabolic acidosis mostly secondary to dehydration It was noted that the patient was provided with 2 L of fluid and Zofran as well as Compazine after which she was feeling much better and he did not want to wait for the discharge and just left his room Lab Data Labs: Lab Results 06/25/25 Range/Units 09:46 WBC 22.3 H (4.0-11.0) 10^3/uL RBC 5.44 (4.70-6.10) 10^6/uL Hgb 15.5 (14.0-18.0) g/dL Hct 45.1 (42.0-54.0) % MCV 82.9 (80.0-94.0) fL MCH 28.5 (25.9-34.0) pg MCHC 34.4 (29.9-35.2) g/dL RDW 14.3 (11.0-15.0) % Plt Count 400 (150-450) 10^3/uL MPV 11.1 (9.5-13.5) fL Neut % (Auto) 77.7 H (43.0-75.0) % Lymph % (Auto) 15.2 L (20.5-60.0) % Hughes % (Auto) 6.2 (1.7-12.0) % Eos % (Auto) 0.0 L (0.9-7.0) % Baso % (Auto) 0.2 (0.2-2.0) % Neut # (Auto) 17.3 H (1.4-6.5) 10^3/uL Lymph # (Auto) 3.4 (1.2-3.8) 10^3/uL Hughes # (Auto) 1.4 H (0.3-0.8) 10^3/uL Eos # (Auto) 0.0 (0.0-0.7) 10^3/uL Baso # (Auto) 0.0 (0.0-0.1) 10^3/uL Abs Immat Gran (auto) 0.15 H (0.00-0.03) 10^3/uL Imm/Tot Granulo (auto) 0.7 H (0.0-0.5) % Sodium 138 (136-145) mmol/L Potassium 3.7 (3.5-5.1) mmol/L Chloride 102 (98-107) mmol/L Carbon Dioxide 17.6 L (21.0-32.0) mmol/L Anion Gap 22.1 BUN 16.0 (7.0-18.0) mg/dL Creatinine 1.36 H (0.70-1.30) mg/dL Est GFR ( Amer) >60 (>=60 mL/min/1.73m^2) Est GFR (Non-Af Amer) 60 (>=60 mL/min/1.73m^2) BUN/Creatinine Ratio 11.8 Glucose 132 H (74-106) mg/dL Calcium 9.2 (8.5-10.1) mg/dL Total Bilirubin 0.8 (0.2-1.0) mg/dL AST 26 (15-37) U/L ALT 50 (16-63) U/L Alkaline Phosphatase 81 (46-116) U/L Total Protein 8.3 H (6.4-8.2) g/dL Albumin 4.4 (3.4-5.0) g/dL Globulin 3.9 g/dL Albumin/Globulin Ratio 1.1 Lipase 29.0 (16.0-77.0) U/L Discharge Plan Discharge Stand Alone Forms: Portal Instructions Chief Complaint: Abdominal Pain Clinical Impression: Cannabinoid hyperemesis syndrome Patient Disposition: Left Against Medical Advice Condition: Good Prescriptions / Home Meds: No Action clonidine HCl 0.1 mg tablet 0.2 mg PO BID hydroxyzine pamoate 25 mg capsule 25 mg PO QID PRN (Reason: anxiety) lithium carbonate 300 mg capsule 300 mg PO BEDTIME multivitamin [Daily Multi-Vitamin] Tablet 1 tab PO DAILY propranolol [Inderal LA] 80 mg capsule,extended release 24 hr 80 mg PO DAILY dicyclomine 10 mg capsule 10 mg PO QID PRN (Reason: abdominal pain) Qty: 12 0RF ondansetron 4 mg tablet,disintegrating 4 mg PO Q6H PRN (Reason: nausea and vomiting) Qty: 20 0RF ibuprofen 800 mg tablet 800 mg PO Q8H PRN (Reason: pain) sildenafil 100 mg tablet 100 mg PO DAILY nabumetone 500 mg tablet 500 mg PO BID dextroamphetamine-amphetamine 30 mg tablet 30 mg PO DAILY Print Language: [place] Referrals: Janes Mario MD [Primary Care Provider, Family Practice] - 1 week Discharge Date/Time: 06/25/25 13:39
== END 2025-06-25 13:39 | disposition left against medical advice (07) ==
PROVIDERS: Emergency Provider Emergency Medicine; PCP Family Medicine
DX: R11.10 Vomiting, unspecified (principal); Z53.29 Procedure and treatment not carried out because of patient's decision for other reasons; F12.90 Cannabis use, unspecified, uncomplicated; F17.290 Nicotine dependence, other tobacco product, uncomplicated
CPT/HCPCS: 36415; 80053; 83690; 85025; 96361; 96374; 96375; 99284; J0780; J1200; J1885; J2405

== ENCOUNTER 2025-07-25 12:52 | Outpatient (RCR) | payer OTHER, SELFPAY | END 2025-09-10 08:09 | disposition home or self-care (01) | LOC: PT 12:52 | PROVIDERS: PCP Family Medicine; Visit Provider Physician Assistant | DX: M75.111 Incomplete rotator cuff tear or rupture of right shoulder, not specified as traumatic (principal); M19.011 Primary osteoarthritis, right shoulder; M25.511 Pain in right shoulder | CPT/HCPCS: 97110; 97112; 97161 ==

== ENCOUNTER 2025-08-29 09:32 | Emergency (ER) | payer OTHER, SELFPAY ==
[2025-08-29 09:42] VITALS: BP 157/99; PULSE 78; O2SAT 95; BMI 40.2
--- OUTSIDE RECORDS SUMMARY | 2025-08-29 09:43 | XMS_ITS | CCD ---
Author Organization [facility] Team Providers Care Lmft Name Role Phone RAQUEL BANKS Referring Unavailable DARREN, MOHAMAD Attending Unavailable HOY ., DR OLIVER Consulting Unavailable HOY ., DR OLVIER Attending Unavailable HOY ., DR OLIVER Admitting [...] Unavailable HOY ., DR OLIVER Admitting Unavailable NIX ., DR CASTILLO Banegas Consulting Unavailable ZEESHAN ESPOSITO Consulting Unavailable HOY ., DR OLIVER Consulting Unavailable HOY ., DR OLIVER Primary Care Unavailable HOY ., DR OLIVER Attending Unavailable HOY ., DR OLIVER Admitting Unavailable HAY ., DR PIMENTEL Consulting Unavailable HAY ., DR PIMENTEL Attending Unavailable HAY ., DR PIMENTEL Admitting Unavailable HOY ., DR OLIVER Primary Care Unavailable AHODELL LILLY Consulting Unavailable CHERYL .DELORES Attending Unavailable CHERYL ., DELORES Admitting Unavailable HOY ., DR OLIVER Primary Care Unavailable CHERYL .DELORES Consulting Unavailable HAY ., DR PIMENTEL Consulting Unavailable HAY ., DR PIMENTEL Attending Unavailable HAY ., DR PIMENTEL Admitting Unavailable HOY ., DR OLIVER Primary Care Unavailable SHYANN CM Consulting Unavailable DARREN, RAQUEL Consulting Unavailable HOY ., DR OLIVER Primary Care Unavailable DARREN MOHREINAD Attending Unavailable ALGHOTHCARLOS, MOHAMAD Admitting Unavailable NORBERTY ., DR OLIVER Consulting Unavailable HOY ., [...] Unavailable HOY ., DR OLIVER Admitting Unavailable TALMAGE, DR RAPHAEL Lemon Consulting Unavailable Michaels, K Consulting Unavailable HOY ., DR OLIVER Consulting Unavailable HOY ., DR OLIVER Attending Unavailable HOY ., DR OLIVER Admitting Unavailable HOY ., DR OLIVER Primary Care Unavailable LUISA, DR CHARISSA Buckley Consulting Unavailjeannine LEACH, DR CASSIA Del Angel Consulting Unavailable DARRELL TOLEDO Consulting Unavailable KAYDEN BRANTLEY Consulting Unavailable Unavailable Primary Care Provider UnavailTUNG Wolf Attending Unavailable TUNG GUNN Attending Unavailable TUNG GUNN Attending Unavailable Melody Mario MD Primary Care Provider [phone] PALMER SHEA Attending Unavailable MELODY MARIO Primary Care Unavailable MELODY MARIO Primary Care Unavailable Melody Mario MD Primary Care Provider [phone] Jun Griffin MD Attending Provider [phone] Melody Mario Primary Care Unavailable Jun Griffin Attending Unavailable Jun Griffin Admitting Unavailable Hugh Brown DO Attending Provider Allergies Allergy Classification Reported Allergen(s) Allergy Type Date of Onset Reaction(s) Facility (12 sources) Penicillins; Translations: [PENICILLINS] Propensity to adverse reactions to drug (disorder) 09-28-20 07 Unknown, Intolerance [facility] Repository (7 sources) Sulfamethoxazole / Trimethoprim; Translations: [SULFAMETHOXAZOLE-T RIMETHOPRIM] Drug Allergy 01-27-20 21 Rash [facility] Repository (1 source) Clarithromycin Drug Allergy [facility] Repository (1 source) Sulfamethoxazole / Trimethoprim Drug Allergy 05-27-20 17 [facility] Repository (4 sources) Clarithromycin; Translations: [CLARITHROMYCIN] Allergy to substance 03-07-20 24 [facility] (2 sources) Clarithromycin Drug Allergy 04-16-20 25 Unknown [facility] (3 sources) Penicillin Drug Allergy 01-29-20 [facility] (3 sources) Sulfamethoxazole Drug Allergy 01-29-20 Unknown Reaction [facility] (3 sources) Trimethoprim Drug Allergy 01-29-20 Unknown Reaction [facility] (3 sources) Biaxan Allergy to substance 01-29-20 [facility] Medications Current Medications Medication Drug Class(es) Dates Sig (Normalized) Sig (Original) amphetamine aspartate 7.5 mg / amphetamine sulfate 7.5 mg / dextroamphetamine saccharate 7.5 mg / dextroamphetamine sulfate 7.5 mg oral tablet (11 sources) Central Nervous System Stimulant Start: 03-24-2020 take 1 tablet by mouth once daily Dextroamphetamin e-Amphetamine (Adderall) 30 mg Tablet Active 30 MG PO Daily March 24, 2020 12:00am Complies with drug therapy Start: 08-30-2017 End: 03-19-2020 take 1 tablet by mouth once daily Dextroamphetamine-Amphetamine (Adderall) 30 mg tablet Discontinued 30 MG PO Daily August 30, 2017 12:00am March 19, 2020 12:55pm ciclopirox 10 mg/ml medicate d shampoo (6 sources) Start: 03-07-2024 Ciclopirox 1 % shampoo Indications: Tinea versicolor Lather on body, leave on 5 min, rinse 2-3 x week, 30 day supply 120 mL 11 03/07/2024 Active Start: 03-07-2024 ciclopirox (Lo prox) 0.77 % cream Indications: Tinea versicolor Apply thin layer to affected area once a day, when flared. 90 g 11 03/07/2024 Active citalopram 20 mg oral tablet (6 sources) Serotonin Reuptake Inhibitor Start: 03-24-2020 take 1 tablet by mouth once daily Citalopram (Celexa) 20 mg Tablet Active 20 MG PO Daily March 24, 2020 12:00am Complies with drug therapy Start: 08-30-2017 End: 03-19-2020 take 1 tablet by mouth once daily Citalopram (Celexa) 20 mg tablet Discontinued 20 MG PO Daily August 30, 2017 12:00am March 19, 2020 12:55pm cloNIDine hydrochloride 0.1 mg oral tablet (3 sources) Central alpha-2 Adrenergic Agonist take 2 tablets by mouth twice daily cloNIDine (Catapres) 0.1 MG tablet TAKE 2 TABLETS BY MOUTH TWICE A DAY for 90 Active diclofenac sodium 75 mg delayed release oral tablet (6 sources) Nonsteroidal Anti-inflammatory Drug Start: diclofenac (Voltaren) 75 MG EC tablet every 12 (twelve) hours 12/22/2023 Active Start: 03-13-2020 End: 03-24-2020 take 1 tablet by mouth twice daily Diclofenac Sodium 75 mg tablet,delayed release (DR/EC) Discontinued 75 MG PO Twice daily March 13, 2020 12:00am March 24, 2020 9:35am doxepin hydrochloride 10 mg oral capsule (3 sources) Tricyclic Antidepressant Start: 03-24-2020 take 1 capsule by mouth four times daily Doxepin 10 mg capsule Active 10 MG PO Four times daily March 24, 2020 12:00am Complies with drug therapy fluconazole 100 mg oral tablet (5 sources) Azole Antifungal Start: 05-16-2024 End: 12-04-2024 fluconazole (Diflucan) 100 MG tablet Indications: Tinea versicolor 3 tablets by mouth now, repeat in 1 week/14 days 6 tablet 12/04/2024 Active hydrOXYzine pamoate 25 mg oral capsule (3 sources) Antihistamine take 1 capsule by mouth four times daily as needed hydrOXYzine pamoate (Vistaril) 25 MG capsule TAKE 1 CAPSULE BY MOUTH FOUR TIMES A DAY NEEDED for 90 Active ibuprofen 800 mg oral tablet (5 sources) [...] mouth. Active meloxicam 15 mg oral tablet (4 sources) Nonsteroidal Anti-inflammatory Drug Start: 07-19-2025 take 1 tablet by mouth once daily Meloxicam 15 mg tablet Active 15 MG PO Daily July 19, 2025 12:00am Complies with drug therapy Start: 01-12-2024 meloxicam (Mob ic) 15 MG tablet 1 (one) time each day at the same time 01/12/2024 Active metoclopramide 5 mg oral tablet (6 sources) Dopamine-2 Receptor Antagonist metoclopramide (Regl an) 10 MG tablet Take 10 mg by mouth in the morning and 10 mg at noon and 10 mg in the evening and 10 mg before bedtime. Active metoclopramide ( Reglan) 5 MG tablet every 8 (eight) hours Active promethazine hydrochloride 25 mg rectal suppository (6 sources) Phenothiazine Start: 11-28-2023 promethazine ( Phenergan) 25 MG suppository every 12 (twelve) hours 11/28/2023 Active Start: 03-17-2020 End: 03-24-2020 take 1 tablet by mouth every six hours as needed for nausea and vomiting Promethazine 25 mg tablet Discontinued 25 MG PO Q6H as needed for nausea and vomiting March 17, 2020 12:00am March 24, 2020 9:49am propranolol hydrochloride 80 mg oral tablet (3 sources) beta-Adrenergic Nelida take 1 tablet by mouth once daily propranolol (Inderal) 80 MG tablet TAKE 1 TABLET BY MOUTH EVERY DAY for 90 Active QUEtiapine 200 mg oral tablet (3 sources) Atypical Antipsychotic Start: 03-24-20 20 take 1 tablet by mouth once daily Quetiapine 200 mg tablet Active 200 MG PO Daily March 24, 2020 12:00am Complies with drug therapy simvastatin 20 mg oral tablet (6 sources) HMG-CoA Reductase Inhibitor Start: 03-24-20 20 take 1 tablet by mouth once daily at bedtime Simvastatin 20 mg Tablet Active 20 MG PO Daily at bedtime March 24, 2020 12:00am Complies with drug therapy Start: 08-30-2017 End: 03-19-2020 take 1 tablet by mouth once daily Simvastatin (Zocor) 20 mg tablet Discontinued 20 MG PO Daily August 30, 2017 12:00am March 19, 2020 12:56pm Completed/Discontinued Medications Medication Drug Class(es) Dates Sig (Normalized) Sig (Original) acetaminophen 325 mg / HYDROcodone bitartrate 5 mg oral tablet (3 sources) Opioid Agonist Start: 08-30-2017 End: 03-19-2020 take 1 tablet by mouth every four to six hours as needed for pain Hydrocodone-Aceta minophen ([place]) 5-325 mg tablet Discontinued 1 - 2 TAB PO EVERY 4-6 HOURS as needed for Pain 40 August 30, 2017 9:24am March 19, 2020 12:55pm chlordiazePOXIDE hydrochloride 5 mg / clidinium bromide 2.5 mg oral capsule (3 sources) Anticholinergic, Benzodiazepine Start: 03-24-2020 End: 03-24-2020 Chlordiazepoxide- Clidinium 5-2.5 mg Capsule Discontinued 1 CAP PO Q4H March 24, 2020 12:00am March 24, 2020 9:49am dicyclomine hydrochloride 20 mg oral tablet (3 sources) Anticholinergic Start: 03-24-2020 End: 03-24-2020 take 1 tablet by mouth four times daily Dicyclomine 20 mg Tablet Discontinued 20 MG PO Four times daily March 24, 2020 12:00am March 24, 2020 9:49am famotidine 20 mg oral tablet (3 sources) Histamine-2 Receptor Antagonist Start: 03-13-2020 End: 03-19-2020 take 1 tablet by mouth twice daily Famotidine (Pepcid) 20 mg tablet Discontinued 20 MG PO Twice daily March 13, 2020 12:00am March 19, 2020 12:55pm hyoscyamine sulfate 0.125 mg oral tablet (11 sources) Start: 03-24-2020 End: 03-24-2020 take 1 tablet by mouth four times daily Hyoscyamine Sulfate 0.125 mg tablet Discontinued 0.125 MG PO Four times daily March 24, 2020 12:00am March 24, 2020 9:49am take 1 tablet by lindsay th every hour hyoscyamine ER (Levbid) 0.375 MG 12 hr tablet Take 0.375 mg by mouth every 12 (twelve) hours if needed Active End: 12-04-2024 hyoscyamine (Levsin/SL) 0.12 5 MG SL tablet every 8 (eight) hours 12/04/2024 Discontinued End: 12-04-2024 take 0.125 mg by mouth every four hours hyoscyamine (Levsin) 0.125 MG/5ML elixir Take 0.125 mg by mouth every 4 (four) hours 12/04/2024 Discontinued pantoprazole 40 mg delayed release oral tablet (6 sources) Proton Pump Inhibitor Start: 03-17-2020 End: 03-24-2020 take 1 tablet by mouth once daily Pantoprazole (Protonix) 40 mg tablet,delayed release (DR/EC) Discontinued 40 MG PO Daily 14 March 17, 2020 12:00am March 24, 2020 9:49am microencapsulated potassium chloride 20 meq extended release oral tablet (6 sources) Start: 03-24-2020 End: 03-24-2020 Potassium Chloride (Klor-Con M20) 20 mEq tablet,ER particles/crystals Discontinued 20 MEQ PO Three times daily March 24, 2020 12:00am March 24, 2020 9:49am Start: 03-17-2020 End: 03-19-2020 take 1 tablet by mouth three times daily Potassium Chloride 20 mEq tablet extended release Discontinued 20 MEQ PO Three times daily March 17, 2020 12:00am March 19, 2020 12:56pm Problems Active Problems Problem Classification Problem Date Documented Date Episodic/Chronic Abdominal pain (10 sources) Generalized abdominal pain; Translations: [Upper abdominal [...] [Pityriasis versicolor] 12-04-2024 Episodic Nausea and vomiting (10 sources) Vomiting, unspecified; Translations: [Nausea with vomiting, unspecified] Onset: 07-07-2022 Episodic Nonspecific chest pain (9 sources) Chest pain, unspecified; Translations: [Other chest pain] Onset: 11-16-2022 Episodic Osteoarthritis (11 sources) Primary osteoarthritis, right shoulder; Translations: [Arthropathy, unspecified, shoulder region] Onset: 04-16-2025 04-16-2025 Chronic Other aftercare (1 source) Other 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 churn buttermaker (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) drug therapy; Translations: [OTH JAIL CURRENT DRUG THERAPY] Onset: 02-07-2023 Episodic Other connective tissue disease (2 sources) Tendinitis of right rotator cuff; Translations: [Other shoulder lesions, right shoulder] 04-16-2025 Episodic Other connective tissue disease (1 source) Other shoulder lesions, right shoulder; Translations: [Rotator cuff tendinitis, right] Onset: 04-16-2025 Episodic Other connective tissue disease (7 sources) Tear of right rotator cuff; Translations: [Unspecified rotator cuff tear or rupture of right shoulder, not specified as traumatic] 07-08-2025 Episodic Other lower respiratory disease (1 source) Acute respiratory distress; Translations: [ACUTE RESPIRATORY DISTRESS] Onset: 02-07-2023 Episodic Other non-traumatic joint disorders (1 source) Disorder of acromioclavicular joint 04-16-2025 Episodic Other non-traumatic joint disorders (11 sources) Pain in right shoulder; Translations: [Pain [...] [Nicotine dependence, cigarettes, uncomplicated] Onset: 07-07-2022 Chronic Substance-related disorders (3 sources) Marijuana user; Translations: [Cannabis use, unspecified, uncomplicated] 03-13-2020 Episodic Unclassified (2 sources) abnormal stress test Onset: [...] Test Name Value Interpretation Reference Range Facility X-ray reportOrdered By: Miles Casillas on 07-08-2025 Study report [facility] [address] [place] [address] XRay Report Signed Patient: Paulina Montero MR#: [id number] : 1990 Acct:[id number] Age/Sex: 35 / M ADM Date: 5 [place] [facility] [place] Type[place] [facility] Attending Dr: Jun Griffin MD Copies to: Jun Griffin MD~ Ordering Provider: Jun Griffin MD Date of Service: 07/08/25 XR/XR shoulder RT min 2V*: M25.511 - Pain in right shoulder 4 views right shoulder plain film HISTORY: Right shoulder pain for months COMPARISON: None ACUTE FINDINGS: None DEGENERATIVE CHANGE: Marginal spurring SOFT TISSUE FINDINGS: Unremarkable JOINT EFFUSION: None POSTOP CHANGES: Humeral head anchor screw in adequate position BONY MINERALIZATION: Adequate XR/XR shoulder RT min 2V* IMPRESSION: Adequate postsurgical change. No acute findings. Mild degeneration Impression dictated by: Jovanni Casillas M.D. 07/08/2025 6:47 PM Dictation Location: [place] [address] Transcribed By: [facility] 07/08/251846 Dictated By: Jovanni Casillas DO 07/08/251845 Signed By: 07/08/251846 [facility] XR shoulder RT min 2V*on XR shoulder RT min 2V* [facility] [address] [place] [address] XRay Report Signed Patient: Paulina Montero MR#: [id number] : 1990 Acct:[id number] Age/Sex: 35 / M ADM Date: 07/08/25 [place] [facility] [place]: Type: [facility] Attending Dr: Jun Griffin MD Copies to: Jun Griffin MD Ordering Provider: Jun Griffin MD Date of Service: 07/08/25 XR/XR shoulder RT min 2V*: M25.511 - Pain in right shoulder 4 views right shoulder plain film HISTORY: Right shoulder pain for months COMPARISON: None ACUTE FINDINGS: None DEGENERATIVE CHANGE: Marginal spurring SOFT TISSUE FINDINGS: Unremarkable JOINT EFFUSION: None POSTOP CHANGES: Humeral head anchor screw in adequate position BONY MINERALIZATION: Adequate XR/XR shoulder RT min 2V* IMPRESSION: Adequate postsurgical change. No acute findings. Mild degeneration Impression dictated by: Jovanni Casillas M.D. 07/08/2025 6:47 PM Dictation Location: [facility] Transcribed By: [facility] 07/08/251846 Dictated By: Jovanni Casillas DO 07/08/251845 Signed By: 07/08/251846 Normal [facility] CNOVon 04-16-2025 CNOV Office Visit (LOORRM ) PAULINA MONTERO ([id number]) 1990 M Date Time Provider Department 04/16/25 [...] 16 years old by a doctor in [place], and the second surgery was performed a year later by Dr. Carrion in [place]. The second surgery is where the repair [...] tendon - (more content not included)... Normal [facility] XR SHLDR 4V AP/ISABELL/LAT/OUTLE T [...] maintained. IMPRESSION: Mild degenerative change right shoulder Mailroom Messenger: SHASHI Transcribe Date/Time: Apr 16 2025 2:51P Dictated by : SIRENA WOODARD MD This examination was interpreted and the report reviewed and electronically signed by: SIRENA WOODARD MD on Apr 16 2025 2:52PM EST [id number] Normal [facility] XR Shoulder - right 4 Viewso n 04-16-2025 IMPRESSION: Mild degenerative change right shoulder Mailroom Messenger: PSCB Transcribe Date/Time: Apr 16 2025 2:51P Dictated [...] interval is maintained. DIVISION OF RADIOLOGY Provider, [facility] - 04/16/2025 * * *Final Report* * [...] IMPRESSION IMPRESSION: Mild degenerative change right shoulder Mailroom Messenger: SHASHI Transcribe Date/Time: Apr 16 2025 2:51P Dictated by : SIRENA WOODARD MD This examination was interpreted and the report reviewed and electronically signed by: SIRENA WOODARD MD on Apr 16 2025 2:52PM EST [facility] Radiology Study observation (narrative) [facility] XR Shoulder - right 4 ViewsO rdered By: Ccf Provider on 04-16-2025 [facility] H PYLORI ANTIBODY IGGon 12-22 H. PYLORI IGG ABS 0.09 Index Value Normal 0.00-0.79 [facility] Comment on above: Result Comment: Nega tive <0.80 Equivocal 0.80 - 0.89 Positive >0.89 Performed By: #### H PYLLC ####[facility] [address] [place], [place] [address]Dr. Chrissy Frazier AMYLASEon 01-04-2023 Amylase [Catalytic activity/Vol] 34 U/L Normal 25-115 [facility] Comment on above: Performed By: #### A MY ####[facility] [address] [place], [place] [address]Dr. Chrissy Frazier CBC AUTO DIFFon 01-04-2023 BASO # 0.0 103/ul Normal 0.0-0.1 [facility] Comment on above: Performed By: #### C BC ####[facility] [address] [place], [place] [address]Dr. Chrissy Frazier Basophils/100 WBC (Bld) 0.1 % Critically low 0.2-2.0 [facility] Comment on above: Performed By: #### C BC ####[facility] [address] [place], [place] [address]Dr. Chrissy Frazier EO # 0.0 103/ul Normal 0.0-0.7 [facility] Comment on above: Performed By: #### C BC ####[facility] [address] [place] [address]Dr. Chrissy Frazier Eosinophils/100 WBC (Bld) 0.1 % Critically low 0.9-7.0 [facility] Comment on above: Performed By: #### C BC ####[facility] [address] [place] [address]Dr. Chrissy Frazier Erythrocyte distribution width (RBC) [Ratio] 14.0 % Normal 11.0-15.0 [facility] Comment on above: Performed By: #### C BC ####[facility] [address] [place], [place] [address]Dr. Chrissy Frazier Hematocrit (Bld) [Volume fraction] 40.4 % Critically low 42.0-54.0 [facility] Comment on above: Performed By: #### C BC ####[facility] [address] [place], [place] [address]Dr. Chrissy Frazier Hemoglobin (Bld) [Mass/Vol] 13.8 g/dL Critically low 14.0-18.0 [facility] Comment on above: Performed By: #### C BC ####[facility] [address] [place], [place] [address]Dr. Chrissy Frazier IG # 0.05 10e3/ul Critically high 0.00-0.03 [facility] Comment on above: Performed By: #### C BC ####[facility] [address] [place], [place] [address]Dr. Chrissy Frazier IG % 0.3 % Normal 0.0-0.5 [facility] Comment on above: Performed By: #### C BC ####[facility] [address] [place], [place] [address]Dr. Chrissy Frazier LYMPH # 1.7 103/ul Normal 1.2-3.8 [facility] Comment on above: Performed By: #### C BC ####[facility] [address] [place], [place] [address]Dr. Chrissy Frazier Lymphocytes/100 WBC (Bld) 11.9 % Critically low 20.5-60.0 [facility] Comment on above: Performed By: #### C BC ####[facility] [address] [place] [id number]. Chrissy Frazier MANUAL DIFF REQ NO Normal [facility] Comment on above: Performed By: #### C BC ####[facility] [address] [place] [id number]. Chrissy Frazier MCH (RBC) [Entitic mass] 29.3 pg Normal 25.9-34.0 [facility] Comment on above: Performed By: #### C BC ####[facility] [address] [place] [id number]. Chrissy Frazier MCHC (RBC) [Mass/Vol] 34.2 g/dL Normal 29.9-35.2 [facility] Comment on above: Performed By: #### C BC ####[facility] [address] [place] [address]Dr. Chrissy Frazier MCV (RBC) [Entitic vol] 85.8 fL Normal 80.0-94.0 [facility] Comment on above: Performed By: #### C BC ####[facility] [address] [place], [place] [address]Dr. Chrissy Frazier MONO # 0.6 103/ul Normal 0.3-0.8 [facility] Comment on above: Performed By: #### C BC ####[facility] [address] [place] [address]Dr. Chrissy Frazier Monocytes/100 WBC (Bld) 4.2 % Normal 1.7-12.0 [facility] Comment on above: Performed By: #### C BC ####[facility] [address] [place] [id number] Frazier NEUT # 12.0 103/ul Critically high 1.4-6.5 [facility] Comment on above: Performed By: #### C BC ####[facility] [address] [place] [id number]. Chrissy Frazier Neutrophils/100 WBC (Bld) 83.4 % Critically high 43.0-75.0 [facility] Comment on above: Performed By: #### C BC ####[facility] [address] [place] [id number]. Chrissy Freddie Platelet mean volume (Bld) [Entitic vol] 10.4 fL Normal 9.5-13.5 [facility] Comment on above: Performed By: #### C BC ####[facility] [address] [place] [id number]. Tishrowan Freddie PLT 313 103/ul Normal 150-450 [facility] Comment on above: Performed By: #### C BC ####[facility] [address] [place] [id number]. Chrissy Freddie RBC 4.71 106/ul Normal 4.70-6.10 [facility] Comment on above: Performed By: #### C BC ####[facility] [address] [place] [id number]. Chrissy Frazier WBC 14.4 103/ul Critically high 4.0-11.0 [facility] Comment on above: Performed By: #### C BC ####[facility] [address] [place] [id number]. Chrissy Frazier CULTURE URINEon 01-04-2023 CULTURE URINE Culture Observations : NO GROWTH. Normal [facility] Comment on above: Performed By: #### U RCX ####[facility] [address] [place] [id number]. Chrissy Frazier DRUG SCREEN RAPID (URINE)on 01-04-2023 AMP Negative Normal NEGATIVE [facility] Comment on above: Performed By: #### Amelie CHAMBERS UAMIC ####[facility] [address] [place] [id number]. Chrissy Frazier BAR Negative Normal NEGATIVE [facility] Comment on above: Performed By: #### Amelie CHAMBERS UAMIC ####[facility] [address] [place] [id number]. Chrissy Frazier BUP Negative Normal NEGATIVE [facility] Comment on above: Performed By: #### Amelie CHAMBERS UAMIC ####[facility] [address] [place], [place] [id number]. Chrissy Frazier BZO Positive Abnormal NEGATIVE [facility] Comment on above: Performed By: #### Amelie CHAMBERS UAMIC ####[facility] Uvbvphwiij[address] [place], [place] [address]Dr. Chrissy Frazier LAUREN Negative Normal NEGATIVE [facility] Comment on above: Performed By: #### Amelie CHAMBERS UAMIC ####[facility] Joofxnckrd[address] [place], [place] [id number]. Chrissy Frazier CUT-OFFS SEE BELOW Normal [facility] Comment on above: Result Comment: AMP (Amphetamine): 500ng/mL, BAR (Barbituates): 200 ng/mL, BZO (Benzodiazepines): 150 ng/mL, BUP (Buprenorphine): 10 ng/mL, LAUREN (Cocaine): 150 ng/mL, mAMP (Methamphetamine): 500 ng/mL, MTD (Methadone): 200 ng/mL, OPI (Opiates): 100 ng/mL, OXY (Oxycodone): 100 ng/mL, PCP (Phencyclidine): 25 ng/mL, PPX (Propoxyphene): 300 ng/mL, THC (Cannabinoids): 50 ng/mL, TCA (Trycyclic Antidepressants): 300 ng/mL Performed By: #### SORAYA BRIZUELAMIC ####[facility] Dbtvcddrki[address] [place], [place] [address]Dr. Chrissy Frazier DRUG CUT HEADER DRUG CLASS TEST SYSTEM CUT-OFF CONCENTRATIONS ARE FOLLOWS: Normal [facility] Comment on above: Performed By: #### SORAYA BRIZUELAMIC ####[facility] Gxvqsnmcmo40[address] [place], [place] [id number]. Chrissy Frazier mAMP Negative Normal NEGATIVE [facility] Comment on above: Performed By: #### SORAYA BRIZUELAMIC ####[facility] Ffleguguno[address] [place], [place] [address]Dr. Chrissy Frazier MTD Negative Normal NEGATIVE [facility] Comment on above: Performed By: #### AMELIA BRIZUELA ####[facility] Qzagiyvsth8[address] [place], [place] [address]Dr. Chrissy Frazier OPI Negative Normal NEGATIVE [facility] Comment on above: Performed By: #### D REYES, UAMIC ####[facility] Ytfbvpkonw8961 [place] [address]Dr. Chrissy Frazier OXY Negative Normal NEGATIVE [facility] Comment on above: Performed By: #### D REYES, UAMIC ####[facility] Kkdqhsptjc2323 [place] [id number]. Tishrowan Frazier PCP Negative Normal NEGATIVE [facility] Comment on above: Performed By: #### D REYES, UAMIC ####[facility] Kmngykaiuq5639 [place] [id number]. Tishrowan Frazier PPX Negative Normal NEGATIVE [facility] Comment on above: Performed By: #### D REYES, UAMIC ####[facility] Yvnfsyfaoq8029 [place] [address]Dr. Chrissy Freddie TCA Positive Abnormal NEGATIVE [facility] Comment on above: Performed By: #### D REYES UAMIC ####[facility] Pgqhdefokg[address] [place], [place] [address]Dr. Chrissy Freddie THC Positive Abnormal NEGATIVE [facility] Comment on above: Performed By: #### D REYES UAMIC ####[facility] Uezzmdmsst2688 [place] [address]Dr. Chrissy Frazier LIPASEon 01-04-2023 Lipase [Catalytic activity/Vol] 57.0 U/L Critically low 73.0-393.0 [facility] Comment on above: Performed By: #### L IPA ####[facility] Kozpfjrtlr[address] [place], [place] [address]Dr. Chrissy Frazier PROF 14(COMP METB)on 023 Albumin [Mass/Vol] 3.6 g/dL Normal 3.4-5.0 [facility] Comment on above: Performed By: #### C MP ####[facility] Dbdsgittos6072 [place] [address]Dr. Chrissy Frazier Albumin/Globulin [Mass ratio] 1.0 {ratio} Normal [facility] Comment on above: Performed By: #### C MP ####[facility] Emdhcthnvd7961 [place] [id number]. Chrissy Frazier ALP [Catalytic activity/Vol] 67 U/L Normal 46-116 [facility] Comment on above: Performed By: #### C MP ####[facility] Fbxdnkspub6817 [place] [id number]. Chrissy Frazier ALT [Catalytic activity/Vol] 26 U/L Normal 16-63 [facility] Comment on above: Performed By: #### C MP ####[facility] Axxtcxypdx7281 [place] [address]Dr. Chrissy Frazier Anion gap [Moles/Vol] 16.3 mmol/L Normal [facility] Comment on above: Performed By: #### C MP ####[facility] Qafjrnqdwu7400 [place] [address]Dr. Chrissy Frazier AST [Catalytic activity/Vol] 17 U/L Normal 15-37 [facility] Comment on above: Performed By: #### C MP ####[facility] Lwubfjxsjp9869 [place] [address]Dr. Chrissy Frazier Bilirubin [Mass/Vol] 0.4 mg/dL Normal 0.2-1.0 [facility] Comment on above: Performed By: #### C MP ####[facility] Opueeeksoy2131 [place] [address]Dr. Chrissy Frazier Calcium [Mass/Vol] 8.7 mg/dL Normal 8.5-10.1 [facility] Comment on above: Performed By: #### C MP ####[facility] Tlhadnqnve6938 [place] [id number]. Chrissy Frazier Chloride [Moles/Vol] 106 mmol/L Normal 98-107 [facility] Comment on above: Performed By: #### C MP ####[facility] Nfnubkrldy6503 [place] [address]Dr. Chrissy Frazier CO2 [Moles/Vol] 22.6 mmol/L Normal 21.0-32.0 [facility] Comment on above: Performed By: #### C MP ####[facility] Fwxfjshgsf1351 [place] [address]Dr. Chrissy Freddie Creatinine [Mass/Vol] 0.99 mg/dL Normal 0.70-1.30 [facility] Comment on above: Performed By: #### C MP ####[facility] Xnzlezprip5803 [place] [address]Dr. Chrissy Freddie EGFR-AF [place] >60 Normal >=60 [facility] Comment on above: Performed By: #### C MP ####[facility] Abbyamwfuq5489 [place] [address]Dr. Tishrowan Frazier EGFR-NON AF [place] >60 Normal >=60 [facility] Comment on above: Performed By: #### C MP ####[facility] Mfyeosiyzr37[address] [place], [place] [address]Dr. Chrissy Frazier Globulin (S) [Mass/Vol] 3.6 g/dL Normal [facility] Comment on above: Performed By: #### C MP ####[facility] Eitivvtvec[address] [place], [place] [address]Dr. Chrissy Frazier Glucose [Mass/Vol] 138 mg/dL Critically high 74-106 [facility] Comment on above: Performed By: #### C MP ####[facility] Jtefrhtzqz0065[address] [place], [place] [address]Dr. Chrissy Frazier Potassium [Moles/Vol] 3.9 mmol/L Normal 3.5-5.1 [facility] Comment on above: Performed By: #### C MP ####[facility] Mjqbxhtumx376[address] [place], [place] [address]Dr. Chrissy Frazier Protein [Mass/Vol] 7.2 g/dL Normal 6.4-8.2 [facility] Comment on above: Performed By: #### C MP ####[facility] Xyhmoxmbdw300[address] [place], [place] [address]Dr. Chrissy Frazier Sodium [Moles/Vol] 141 mmol/L Normal 136-145 [facility] Comment on above: Performed By: #### C MP ####[facility] Kxpkzgasxy5265[address] [place], [place] [address]Dr. Chrissy Frazier Urea nitrogen [Mass/Vol] 10.0 mg/dL Normal 7.0-18.0 [facility] Comment on above: Performed By: #### C MP ####[facility] Bwckiyqfbm[address] [place], [place] [address]Dr. Chrissy Frazier Urea nitrogen/Creatinine [Mass ratio] 10.1 mg/mg Normal [facility] Comment on above: Performed By: #### C MP ####[facility] Zoeojyswnv[address] [place], [place] [address]Dr. Chrissy Frazier UA RANDOM W/MICROSCOPICon BACTERIA TRACE Abnormal NONE SEEN [facility] Comment on above: Performed By: #### D REYES UAMIC ####[facility] Ubumwuevoy07[address] [place], [place] [address]Dr. Chrissy Frazier Bilirubin Ql (U) Negative Normal NEGATIVE [facility] Comment on above: Performed By: #### Amelie CHAMBERS UAMIC ####[facility] Lqirkmelee8[address] [place], [place] [address]Dr. Chrissy Frazier CAST NONE SEEN Normal NONE SEEN [facility] Comment on above: Performed By: #### D REYES UAMIC ####[facility] Wdjeqqcyov[address] [place], [place] [address]Dr. Chrissy Frazier Clarity (U) CLEAR Normal CLEAR [facility] Comment on above: Performed By: #### D REYES, UAMIC ####[facility] Tzoierheuz20[address] [place], [place] [address]Dr. Chrissy Frazier Color (U) YELLOW Normal YELLOW [facility] Comment on above: Performed By: #### D REYES UAMIC ####[facility] Nczhinfrtl8[address] [place], [place] [address]Dr. Chrissy Frazier Crystals LM Nom (Urine sed) NONE SEEN Normal NONE SEEN [facility] Comment on above: Performed By: #### D REYES, UAMIC ####[facility] Zzvbkjexom2365 [place] [address]Dr. Chrissy Frazier Epithelial cells LM Ql (Urine sed) NONE SEEN Normal NONE SEEN /RARE [facility] Comment on above: Performed By: #### Amelie CHAMBERS UAMIC ####[facility] Cnulonelvl6549 [place] [address]Dr. Chrissy Frazier Glucose Ql (U) Negative Normal NEGATIVE [facility] Comment on above: Performed By: #### Amelie CHAMBERS UAMIC ####[facility] Ccfereosrk8117 [place] [address]Dr. Chrissy Frazier Hemoglobin Ql (U) Negative Normal NEGATIVE [facility] Comment on above: Performed By: #### Amelie CHAMBERS UAMIC ####[facility] Gdlomcfkmu5000 [place] [address]Dr. Chrissy Frazier Ketones Ql (U) 15 mg/dl Abnormal NEGATIVE [facility] Comment on above: Performed By: #### Amelie CHAMBERS UAMIC ####[facility] Lcaroakgqq0467[address] [place], [place] [address]Dr. Chrissy Frazier LEUKOCYTES Negative Normal NEGATIVE [facility] Comment on above: Performed By: #### Amelie CHAMBERS UAMIC ####[facility] Betowdeqxw6535[address] [place], [place] [address]Dr. Tishrowan Frazier MUCOUS NONE SEEN Normal NONE SEEN [facility] Comment on above: Performed By: #### Amelie CHAMBERS UAMIC ####[facility] Zjoqslakke[address]25[address] [place], [place] [address]Dr. Chrissy Frazier Nitrite Ql (U) Negative Normal NEGATIVE [facility] Comment on above: Performed By: #### Amelie CHAMBERS UAMIC ####[facility] Sbwjmanhxt[address] [place], [place] [address]Dr. Chrissy Frazier pH (U) 6.5 [pH] Normal 5-9 [facility] Comment on above: Performed By: #### Amelie CHAMBERS UAMIC ####[facility] Twnoyyihci04[address] [place], [place] [address]Dr. Chrissy Frazier RBC NONE SEEN Abnormal 0-2 [facility] Comment on above: Performed By: #### Amelie CHAMBERS UAMIC ####[facility] Otbscylzfj1114[address] [place], [place] [address]Dr. Yilan Frazier SPEC GRAVITY 1.020 Normal 1.005-<=1.025 [facility] Comment on above: Performed By: #### D REYES UAMIC ####[facility] Oggqsgwaot4645 [place] [address]Dr. Tishrowan Freddie UA PROTEIN Negative Normal NEGATIVE/ TRACE [facility] Comment on above: Performed By: #### D REYES UAMIC ####[facility] Nbakdlipvy4646 [place] [address]Dr. Chrissy Frazier Urobilinogen Qn (U) 0.2 {Estrellita'U}/dL Normal 0.2 - 1. 0 [facility] Comment on above: Performed By: #### D SORAYA CHAMBERSMIC ####[facility] Spufuphrvu[address] [place], [place] [address]Dr. Tishrowan Frazier WBC NONE SEEN Normal NONE SEEN [facility] Comment on above: Performed By: #### D SORAYA CHAMBERSMIC ####[facility] Ynnbboonjk[address]99[address] [place], [place] [address]Dr. Tishrowan Frazier AMMONIAon 01-03-2023 Ammonia (P) [Moles/Vol] 17 umol/L Normal 11-32 [facility] Comment on above: Performed By: #### A MM ####[facility] Narrknirax8525[address] [place], [place] [address]Dr. Chrissy Frazier AMYLASEon 01-03-2023 Amylase [Catalytic activity/Vol] 38 U/L Normal 25-115 [facility] Comment on above: Performed By: #### L IPA, TERRENCE, CMP, MG ####[facility] Wsatlwxqlz1346[address] [place], [place] [address]Dr. Tishrowan Frazier CBC AUTO DIFFon 01-03-2023 BASO # 0.1 103/ul Normal 0.0-0.1 [facility] Comment on above: Performed By: #### C BC ####[facility] Fnymvwgzho[address] [place], [place] [address]Dr. Tishrowan Frazire Basophils/100 WBC (Bld) 0.4 % Normal 0.2-2.0 [facility] Comment on above: Performed By: #### C BC ####[facility] Fjnwfemtrj3720 [place] [id number]. Chrissy Frazier EO # 0.1 103/ul Normal 0.0-0.7 [facility] Comment on above: Performed By: #### C BC ####[facility] Tntljasrdy2431 [place] [id number]. Chrissy Frazier Eosinophils/100 WBC (Bld) 0.3 % Critically low 0.9-7.0 [facility] Comment on above: Performed By: #### C BC ####[facility] Uhpvvwcmcv3521 [place] [address]Dr. Chrissy Frazier Erythrocyte distribution width (RBC) [Ratio] 13.7 % Normal 11.0-15.0 [facility] Comment on above: Performed By: #### C BC ####[facility] Iwjabwngpd8[address] [place], [place] [address]Dr. Chrissy Frazier Hematocrit (Bld) [Volume fraction] 46.1 % Normal 42.0-54.0 [facility] Comment on above: Performed By: #### C BC ####[facility] Vzdnjfgbzg[address] [place], [place] [address]Dr. Chrissy Frazier Hemoglobin (Bld) [Mass/Vol] 15.4 g/dL Normal 14.0-18.0 [facility] Comment on above: Performed By: #### C BC ####[facility] Stlxnjbtcu0[address] [place], [place] [address]Dr. Chrissy Frazier IG # 0.11 10e3/ul Critically high 0.00-0.03 [facility] Comment on above: Performed By: #### C BC ####[facility] Hwyzjqwwrf6[address] [place], [place] [address]Dr. Chrissy Frazier IG % 0.6 % Critically high 0.0-0.5 [facility] Comment on above: Performed By: #### C BC ####[facility] Oulvygfnqr[address] [place], [place] [address]Dr. Chrissy Frazier LYMPH # 2.5 103/ul Normal 1.2-3.8 [facility] Comment on above: Performed By: #### C BC ####[facility] Hbgnnxwbsl8484 [place] [id number]. Chrissy Frazier Lymphocytes/100 WBC (Bld) 13.9 % Critically low 20.5-60.0 [facility] Comment on above: Performed By: #### C BC ####[facility] Eyigopgnse0996 [place] [id number]. Chrissy Frazier MANUAL DIFF REQ NO Normal [facility] Comment on above: Performed By: #### C BC ####[facility] Yuhlvywlcm7374 [place] [id number]. Chrissy Frazier MCH (RBC) [Entitic mass] 28.6 pg Normal 25.9-34.0 [facility] Comment on above: Performed By: #### C BC ####[facility] Rwdelijwkn1875 [place] [address]Dr. Chrissy Frazier MCHC (RBC) [Mass/Vol] 33.4 g/dL Normal 29.9-35.2 [facility] Comment on above: Performed By: #### C BC ####[facility] Qkidojvdsn4707 [place] [id number]. Chrissy Frazier MCV (RBC) [Entitic vol] 85.7 fL Normal 80.0-94.0 [facility] Comment on above: Performed By: #### C BC ####[facility] Oxjtbndeyo7220 [place] [id number]. Chrissy Frazier MONO # 0.7 103/ul Normal 0.3-0.8 [facility] Comment on above: Performed By: #### C BC ####[facility] Jomxkdkqjm1934 [place] [id number]. Chrissy Frazier Monocytes/100 WBC (Bld) 4.0 % Normal 1.7-12.0 [facility] Comment on above: Performed By: #### C BC ####[facility] Lqhpmowbul6262 [place] [id number]. Chrissy Frazier NEUT # 14.3 103/ul Critically high 1.4-6.5 [facility] Comment on above: Performed By: #### C BC ####[facility] Xtdsfvprup5254 [place] [id number]. Chrissy Frazier Neutrophils/100 WBC (Bld) 80.8 % Critically high 43.0-75.0 [facility] Comment on above: Performed By: #### C BC ####[facility] Ydjrjbutaz7814 [place] [id number]. Tishrowan Frazier Platelet mean volume (Bld) [Entitic vol] 10.4 fL Normal 9.5-13.5 [facility] Comment on above: Performed By: #### C BC ####[facility] Oofvqqemcb1649 [place] [address]Dr. Chrissy Frazier PLT 437 103/ul Normal 150-450 [facility] Comment on above: Performed By: #### C BC ####[facility] Utsimruszx0811 [place] [address]Dr. Chrissy Frazier RBC 5.38 106/ul Normal 4.70-6.10 [facility] Comment on above: Performed By: #### C BC ####[facility] Dlbthbtcmm2193 [place] [id number]. Chrissy Frazier WBC 17.7 103/ul Critically high 4.0-11.0 [facility] Comment on above: Performed By: #### C BC ####[facility] Dyecejyivq4340 [place] [id number]. Chrissy Frazier CULTURE BLOODon 01-03-2023 Microscopic examination of blood, culture Culture Observations: NO GROWTH AT 5 DAYS. Normal [facility] Comment on above: Performed By: #### B LDCX1 ####[facility] Ulqxzmktdl4078 [place] [address]Dr. Chrissy Frazier Performed By: #### B LDCX2 ####[facility] Egwivrsfbg6733 [place] [address]Dr. Chrissy Frazier ECHOCARDIO M/2D COMPLETEon 0 01-03-2023 ECHOCARDIO M/2D COMPLETE Normal [facility] LACTATE/LACTIC ACIDon 2022 Lactate [Moles/Vol] 2.7 mmol/L Critically high 0.4-1.9 [facility] Comment on above: Performed By: #### L ACT ####[facility] Ksnrfobbnq4880 [place] [address]Dr. Chrissy Frazier Lactate [Moles/Vol] 6.3 mmol/L Critically high 0.4-1.9 [facility] Comment on above: Performed By: #### L ACT ####[facility] Sleoiregwo9178 [place] [address]Dr. Chrissy Frazier LIPASEon 01-03-2023 Lipase [Catalytic activity/Vol] 74.0 U/L Normal 73.0-393.0 [facility] Comment on above: Performed By: #### L IPA, TERRENCE, CMP, MG ####[facility] Mdmxtwmcmn[address] [place], [place] [address]Dr. Chrissy Frazier MAGNESIUMon 01-03-2023 Magnesium [Mass/Vol] 1.6 mg/dL Critically low 1.8-2.4 [facility] Comment on above: Performed By: #### L IPA, TERRENCE, CMP, MG ####[facility] Jaynfwjvji[address] [place], [place] [address]Dr. Chrissy Frazier PROF 14(COMP METB)on 023 Albumin [Mass/Vol] 4.3 g/dL Normal 3.4-5.0 [facility] Comment on above: Performed By: #### L IPA, TERRENCE, CMP, MG ####[facility] Uhjqwtrknf9895 [place] [address]Dr. Chrissy Frazier Albumin/Globulin [Mass ratio] 1.1 {ratio} Normal [facility] Comment on above: Performed By: #### L IPA, TERRENCE, CMP, MG ####[facility] Qmzojhgmod3541 [place] [address]Dr. Chrissy Frazier ALP [Catalytic activity/Vol] 87 U/L Normal 46-116 [facility] Comment on above: Performed By: #### L IPA, TERRENCE, CMP, MG ####[facility] Pitiyoofyk1703 [place] [address]Dr. Chrissy Frazier ALT [Catalytic activity/Vol] 32 U/L Normal 16-63 [facility] Comment on above: Performed By: #### L IPA, TERRENCE, CMP, MG ####[facility] Isnafuhyxy3169 [place] [address]Dr. Chrissy Frazier Anion gap [Moles/Vol] 24.0 mmol/L Normal [facility] Comment on above: Performed By: #### L IPA, TERRENCE, CMP, MG ####[facility] Ntmlukbizc2906 [place] [address]Dr. Chrissy Frazier AST [Catalytic activity/Vol] 22 U/L Normal 15-37 [facility] Comment on above: Performed By: #### L IPA, TERRENCE, CMP, MG ####[facility] Ldfmswtudf4969 [place] [address]Dr. Chrissy Frazier Bilirubin [Mass/Vol] 0.6 mg/dL Normal 0.2-1.0 [facility] Comment on above: Performed By: #### L IPA, TERRENCE, CMP, MG ####[facility] Zhivixakiv2513 [place] [address]Dr. Chrissy Frazier Calcium [Mass/Vol] 9.6 mg/dL Normal 8.5-10.1 [facility] Comment on above: Performed By: #### L IPA, TERRENCE, CMP, MG ####[facility] Fheoawbqfj4446 [place] [address]Dr. Chrissy Frazier Chloride [Moles/Vol] 103 mmol/L Normal 98-107 [facility] Comment on above: Performed By: #### L IPA, TERRENCE, CMP, MG ####[facility] Lxohwevpsz2574 [place] [address]Dr. Chrissy Frazier CO2 [Moles/Vol] 16.7 mmol/L Critically low 21.0-32.0 [facility] Comment on above: Performed By: #### L IPA, TERRENCE, CMP, MG ####[facility] Xmjpalaiex0547 [place] [address]Dr. Chrissy Frazier Creatinine [Mass/Vol] 1.42 mg/dL Critically high 0.70-1.30 [facility] Comment on above: Performed By: #### L IPA, TERRENCE, CMP, MG ####[facility] Qvznkicgaq5315 [place] [address]Dr. Chrissy Frazier EGFR-AF [place] >60 Normal >=60 [facility] Comment on above: Performed By: #### L IPA, TERRENCE, CMP, MG ####[facility] Ocjnbvxzki3129 [place] [address]Dr. Chrissy Frazier EGFR-NON AF [place] 58 mL/min/1.73m2 Critically low >=60 [facility] Comment on above: Performed By: #### L IPA, TERRENCE, CMP, MG ####[facility] Nuazhvuppz6486 [place] [address]Dr. Chrissy Frazier Globulin (S) [Mass/Vol] 4.0 g/dL Normal [facility] Comment on above: Performed By: #### L IPA, TERRENCE, CMP, MG ####[facility] Ipujktjnax1660 [place] [address]Dr. Chrissy Frazier Glucose [Mass/Vol] 149 mg/dL Critically high 74-106 [facility] Comment on above: Performed By: #### L IPA, TERRENCE, CMP, MG ####[facility] Zybawcmunm5313 [place] [address]Dr. Chrissy Frazier Potassium [Moles/Vol] 3.7 mmol/L Normal 3.5-5.1 [facility] Comment on above: Performed By: #### L IPA, TERRENCE, CMP, MG ####[facility] Ddnoefribr8429 [place] [address]Dr. Chrissy Frazier Protein [Mass/Vol] 8.3 g/dL Critically high 6.4-8.2 [facility] Comment on above: Performed By: #### L IPA, TERRENCE, CMP, MG ####[facility] Pmgekiauwl1304 [place] [address]Dr. Chrissy Frazier Sodium [Moles/Vol] 140 mmol/L Normal 136-145 [facility] Comment on above: Performed By: #### L IPA, TERRNECE, CMP, MG ####[facility] Hceqmbcbjy30[address] [place] [address]Dr. Chrissy Frazier Urea nitrogen [Mass/Vol] 16.0 mg/dL Normal 7.0-18.0 [facility] Comment on above: Performed By: #### L IPA, TERRENCE, CMP, MG ####[facility] Dpejduqzye[address] [place], [place] [address]Fw. Chrissy Frazier Urea nitrogen/Creatinine [Mass ratio] 11.3 mg/mg Normal [facility] Comment on above: Performed By: #### L IPA, TERRENCE, CMP, MG ####[facility] Obejjsbcwd[address]257 [place], [place] [address]Rh. Chrissy Frazier [facility] 37 mm/hr Critically high <=15 [facility] Comment on above: Performed By: #### S EDR ####[facility] Gduvorbbmn3285 [place] [id number]. Chrissy Frazier XR ABD FLAT UP_PA Enoch 01-03 XR ABD FLAT UP_PA CH Normal [facility] CT HEART CORONARY ANGIOGRAMo n [...] Electronically signed: Maikel Chappell. Normal [facility] Office Visiton 11-24-2022 Follow-up visit [id number] Paulina Montero 1990 M Date Provider Department Center 11/24/2022 3848-RAQUEL BANKS MANE Caicedo [facility] Family History Problem Relation Age of Onset Coronary artery disease Father Heart attack Father 54 Family Status - Relation Status Age at Father Level of Service:[address] [place] OFFICE/OUTPATIENT NEW MODERATE MDM 45-59 MINUTES Reason for Visit and Comments: abnormal stress test [Other] Normal [facility] CARDIAC STRESS TESTon 2021 CARDIAC STRESS TEST Normal [facility] AMYLASEon 10-24-2022 Amylase [Catalytic activity/Vol] 26 U/L Normal 25-115 [facility] Comment on above: Performed By: #### C MP, LIPA, TERRENCE ####[facility] Obkxztvtub4814 [place] [address]Dr. Chrissy Frazier CBC AUTO DIFFon 10-24-2022 BASO # 0.0 103/ul Normal 0.0-0.1 [facility] Comment on above: Performed By: #### C BC ####[facility] Loyzloibuh4954 [place] [address]Dr. Chrissy Frazier Basophils/100 WBC (Bld) 0.2 % Normal 0.2-2.0 [facility] Comment on above: Performed By: #### C BC ####[facility] Enqircnzdk3780 [place] [address]Dr. Chrissy Frazier EO # 0.1 103/ul Normal 0.0-0.7 [facility] Comment on above: Performed By: #### C BC ####[facility] Heimtmwwgn0302 [place] [address]Dr. Chrissy Frazier Eosinophils/100 WBC (Bld) 0.4 % Critically low 0.9-7.0 [facility] Comment on above: Performed By: #### C BC ####[facility] Tlllnleiyv7195 [place] [address]Dr. Chrissy Frazier Erythrocyte distribution width (RBC) [Ratio] 14.6 % Normal 11.0-15.0 [facility] Comment on above: Performed By: #### C BC ####[facility] Fmgtoglkyq4867 [place] [address]Dr. Chrissy Frazier Hematocrit (Bld) [Volume fraction] 39.4 % Critically low 42.0-54.0 [facility] Comment on above: Performed By: #### C BC ####[facility] Oemctpqaec0174 [place] [id number]. Chrissy Frazier Hemoglobin (Bld) [Mass/Vol] 13.2 g/dL Critically low 14.0-18.0 [facility] Comment on above: Performed By: #### C BC ####[facility] Wcrktxgksa2892 [place] [id number]. Chrissy Frazier IG # 0.07 10e3/ul Critically high 0.00-0.03 [facility] Comment on above: Performed By: #### C BC ####[facility] Ibeysepzob6454 [place] [address]Dr. Chrissy Frazier IG % 0.5 % Normal 0.0-0.5 [facility] Comment on above: Performed By: #### C BC ####[facility] Vtrzmifqqp9848 [place] [address]Dr. Tishrowan Freddie LYMPH # 3.7 103/ul Normal 1.2-3.8 [facility] Comment on above: Performed By: #### C BC ####[facility] Gwbepxrabw0456 [place] [address]Dr. Chrissy Freddie Lymphocytes/100 WBC (Bld) 27.0 % Normal 20.5-60.0 [facility] Comment on above: Performed By: #### C BC ####[facility] Qbsufdrwbe1283 [place] [address]Dr. Tishrowan Frazier MANUAL DIFF REQ NO Normal [facility] [place] [facility] Comment on above: Performed By: #### C BC ####[facility] Pgefilevxy1488 [place] [address]Dr. Chrissy Frazier MCH (RBC) [Entitic mass] 27.8 pg Normal 25.9-34.0 [facility] Comment on above: Performed By: #### C BC ####[facility] Vxlpkmq[address] [place], [place] [address]Dr. Chrissy Frazier MCHC (RBC) [Mass/Vol] 33.5 g/dL Normal 29.9-35.2 [facility] Comment on above: Performed By: #### C BC ####[facility] Vjlummblna3022 [place] [id number]. Chrissy Frazier MCV (RBC) [Entitic vol] 82.9 fL Normal 80.0-94.0 [facility] Comment on above: Performed By: #### C BC ####[facility] Ewhcjvypbt9229 [place] [id number]. Chrissy Frazier MONO # 1.2 103/ul Critically high 0.3-0.8 [facility] [place] [facility] Comment on above: Performed By: #### C BC ####[facility] Laskpkleju2456 [place] [id number]. Chrissy Frazier Monocytes/100 WBC (Bld) 8.4 % Normal 1.7-12.0 [facility] Comment on above: Performed By: #### C BC ####[facility] Zcizkfuppb6855 [place] [id number]. Chrissy Frazier NEUT # 8.8 103/ul Critically high 1.4-6.5 [facility] [place] [facility] Comment on above: Performed By: #### C BC ####[facility] [address]cor[address] [place], [place] [id number]. Chrissy Frazier Neutrophils/100 WBC (Bld) 63.5 % Normal 43.0-75.0 [facility] Comment on above: Performed By: #### C BC ####[facility] Bzlvpswotf9672 [place] [id number]. Chrissy Frazier Platelet mean volume (Bld) [Entitic vol] 10.7 fL Normal 9.5-13.5 [facility] Comment on above: Performed By: #### C BC ####[facility] Vjshgepprr0832 [place] [id number]. Chrissy Frazier PLT 291 103/ul Normal 150-450 [facility] Comment on above: Performed By: #### C BC ####[facility] V[address]xwcpdw[address] [place], [place] [id number]. Chrissy Frazier RBC 4.75 106/ul Normal 4.70-6.10 [facility] Comment on above: Performed By: #### C BC ####[facility] Yripogngfh6339 [place] [address]Dr. Chrissy Frazier WBC 13.8 103/ul Critically high 4.0-11.0 [facility] Comment on above: Performed By: #### C BC ####[facility] Eihjzmgkzi0591 [place] [address]Dr. Chrissy Frazier LIPASEon 10-24-2022 Lipase [Catalytic activity/Vol] 44.0 U/L Critically low 73.0-393.0 [facility] Comment on above: Performed By: #### C MP, LIPA, TERRENCE ####[facility] Iepdocrksy6485 [place] [address]Dr. Chrissy Frazier PROF 14(COMP METB)on 022 Albumin [Mass/Vol] 3.4 g/dL Normal 3.4-5.0 [facility] Comment on above: Performed By: #### C MP, LIPA, TERRENCE ####[facility] Bpyiwgfllc[address] [place], [place] [address]Dr. Chrissy Frazier Albumin/Globulin [Mass ratio] 0.9 {ratio} Normal [facility] Comment on above: Performed By: #### C MP, LIPA, TERRENCE ####[facility] [address]fumlwhipm[address] [place], [place] [address]Dr. Chrissy Frazier ALP [Catalytic activity/Vol] 67 U/L Normal 46-116 [facility] Comment on above: Performed By: #### C MP, LIPA, TERRNECE ####[facility] Fiayimrecu3182 [place] [address]Dr. Chrissy Frazier ALT [Catalytic activity/Vol] 25 U/L Normal 16-63 [facility] Comment on above: Performed By: #### C MP, LIPA, TERRENCE ####[facility] Rhtvqiixdv[address] [place], [place] [address]Dr. Chrissy Frazier Anion gap [Moles/Vol] 14.5 mmol/L Normal [facility] Comment on above: Performed By: #### C MP, LIPA, TERRENCE ####[facility] [address]qrdqhtrqp[address] [place], [place] [address]Dr. Chrissy Frazier AST [Catalytic activity/Vol] 17 U/L Normal 15-37 [facility] Comment on above: Performed By: #### C TESSA ADAIRA, TERRENCE ####[facility] Vtrlynpezz8053 [place] [address]Dr. Chrissy Frazier Bilirubin [Mass/Vol] 0.5 mg/dL Normal 0.2-1.0 [facility] Comment on above: Performed By: #### C MANA LIPA, TERRENCE ####[facility] [address]knkpaavzn[address] [place], [place] [address]Dr. Chrissy Frazier Calcium [Mass/Vol] 8.6 mg/dL Normal 8.5-10.1 [facility] Comment on above: Performed By: #### C TESSA ADAIRA, TERRENCE ####[facility] [address]ossx[address] [place], [place] [address]Dr. Chrissy Frazier Chloride [Moles/Vol] 106 mmol/L Normal 98-107 [facility] Comment on above: Performed By: #### C MANA LIPA, TERRENCE ####[facility] Wuwtmhocok[address] [place], [place] [address]Dr. Chrissy Frazier CO2 [Moles/Vol] 22.8 mmol/L Normal 21.0-32.0 [facility] Comment on above: Performed By: #### C MANA LIPA, TERRENCE ####[facility] [address]hmylqvehl[address] [place], [place] [address]Dr. Chrissy Frazier Creatinine [Mass/Vol] 0.98 mg/dL Normal 0.70-1.30 [facility] Comment on above: Performed By: #### C MANA LIPA, TERRENCE ####[facility] Fyms[address]iltw[address] [place], [place] [address]Dr. Yilan Frazier EGFR-AF [place] >60 Normal >=60 [facility] Comment on above: Performed By: #### C MANA LIPA, TERRENCE ####[facility] Vpsfkloyzh6652 [place] [address]Dr. Yilan Frazier EGFR-NON AF [place] >60 Normal >=60 [facility] Comment on above: Performed By: #### C MP LIPA, TERRENCE ####[facility] Jcpdtevjtv6052 [place] [address]Dr. Chrissy Frazier Globulin (S) [Mass/Vol] 3.7 g/dL Normal [facility] Comment on above: Performed By: #### C MANA LIPA, TERRENCE ####[facility] Qgsllpyehj2321 [place] [address]Dr. Chrissy Frazier Glucose [Mass/Vol] 115 mg/dL Critically high 74-[address] [facility] Comment on above: Performed By: #### C MP LIPA, TERRENCE ####[facility] Ykvladrfpp9523 [place] [address]Dr. Chrissy Frazier Potassium [Moles/Vol] 3.3 mmol/L Critically low 3.5-5.1 [facility] Comment on above: Performed By: #### C MP LIPA, TERRENCE ####[facility] Quuuvqxizd[address] [place], [place] [address]Dr. Chrissy Frazier Protein [Mass/Vol] 7.1 g/dL Normal 6.4-8.2 [facility] Comment on above: Performed By: #### C MP LIPA, TERRENCE ####[facility] Zmglrkrswv[address] [place], [place] [address]Dr. Chrissy Frazier Sodium [Moles/Vol] 140 mmol/L Normal 136-145 [facility] Comment on above: Performed By: #### C MP, LIPA, TERRENCE ####[facility] Nghcjgogmn[address] [place], [place] [address]Dr. Chrissy Frazier Urea nitrogen [Mass/Vol] 10.0 mg/dL Normal 7.0-18.0 [facility] Comment on above: Performed By: #### C MP, LIPA, TERRENCE ####[facility] Xaxdmjsask[address] [place], [place] [address]Dr. Chrissy Frazier Urea nitrogen/Creatinine [Mass ratio] 10.2 mg/mg Normal [facility] Comment on above: Performed By: #### C MP, LIPA, TERRENCE ####[facility] Hrvzacpnqi2885 [place] [address]Dr. Chrissy Frazier AMYLASEon 12-03-2022 Amylase [Catalytic activity/Vol] 31 U/L Normal 25-115 [facility] Comment on above: Performed By: #### C MANA, TERRENCE AKERS ####[facility] Kfwkvwmbaj8736 [place] [address]Dr. Chrissy Frazier CBC AUTO DIFFon 10-23-2022 BASO # 0.1 103/ul Normal 0.0-0.1 [facility] Comment on above: Performed By: #### C BC ####[facility] [address]mbqiowxit[address] [place], [place] [address]Dr. Chrissy Freddie Basophils/100 WBC (Bld) 0.3 % Normal 0.2-2.0 [facility] Comment on above: Performed By: #### C BC ####[facility] Irqjsqznuv[address] [place], [place] [address]Dr. Chrissy Frazier EO # 0.1 103/ul Normal 0.0-0.7 [facility] Comment on above: Performed By: #### C BC ####[facility] Tmtjgcfocn[address] [place], [place] [address]Dr. Chrissy Frazier Eosinophils/100 WBC (Bld) 0.3 % Critically low 0.9-7.0 [facility] Comment on above: Performed By: #### C BC ####[facility] Whvaeoghoy[address] [place], [place] [address]Dr. Chrissy Frazier Erythrocyte distribution width (RBC) [Ratio] 14.5 % Normal 11.0-15.0 [facility] Comment on above: Performed By: #### C BC ####[facility] Yghybrodrw[address] [place], [place] [address]Dr. Chrissy Frazier Hematocrit (Bld) [Volume fraction] 44.0 % Normal 42.0-54.0 [facility] Comment on above: Performed By: #### C BC ####[facility] [address]fgebvfwik[address] [place], [place] [address]Dr. Chrissy Frazier Hemoglobin (Bld) [Mass/Vol] 14.8 g/dL Normal 14.0-18.0 [facility] Comment on above: Performed By: #### C BC ####[facility] Oxzmtzezmo4836 [place] [id number]. Chrissy Frazier IG # 0.09 10e3/ul Critically high 0.00-0.03 [facility] Comment on above: Performed By: #### C BC ####[facility] Qzjavqxmbi9605 [place] [address]Dr. Chrissy Frazier IG % 0.5 % Normal 0.0-0.5 [facility] Comment on above: Performed By: #### C BC ####[facility] Dnvokzfbbr1877 [place] [address]Dr. Chrissy Freddie LYMPH # 3.6 103/ul Normal 1.2-3.8 [facility] Comment on above: Performed By: #### C BC ####[facility] Xsgyxuhrsk6418 [place] [address]Dr. Tishrowan Frazier Lymphocytes/100 WBC (Bld) 19.4 % Critically low 20.5-60.0 [facility] Comment on above: Performed By: #### C BC ####[facility] Ouetjozssh4990 [place] [address]Dr. Tishrowan Frazier MANUAL DIFF REQ NO Normal [facility] Comment on above: Performed By: #### C BC ####[facility] Vmxxlfflyl4300 [place] [address]Dr. Chrissy Frazier MCH (RBC) [Entitic mass] 28.1 pg Normal 25.9-34.0 [facility] Comment on above: Performed By: #### C BC ####[facility] Ouatqafrgw2857 [place] [address]Dr. Chrissy Frazier MCHC (RBC) [Mass/Vol] 33.6 g/dL Normal 29.9-35.2 [facility] Comment on above: Performed By: #### C BC ####[facility] Tkufcxxnxq9019 [place] [address]Dr. Chrissy Frazier MCV (RBC) [Entitic vol] 83.5 fL Normal 80.0-94.0 [facility] Comment on above: Performed By: #### C BC ####[facility] Akymrmxusf4349 [place] [id number]. Chrissy Frazier MONO # 0.9 103/ul Critically high 0.3-0.8 [facility] Comment on above: Performed By: #### C BC ####[facility] Roxghzunia6532 [place] [id number]. Chrissy Frazier Monocytes/100 WBC (Bld) 4.9 % Normal 1.7-12.0 [facility] Comment on above: Performed By: #### C BC ####[facility] Irukakmzvm4857 [place] [id number]. Chrissy Frazier NEUT # 13.9 103/ul Critically high 1.4-6.5 [facility] Comment on above: Performed By: #### C BC ####[facility] Bsawxvokqz4315 [place] [address]Dr. Chrissy Frazier Neutrophils/100 WBC (Bld) 74.6 % Normal 43.0-75.0 [facility] Comment on above: Performed By: #### C BC ####[facility] Lakufcmhmh6104 [place] [address]Dr. Chrissy Frazier Platelet mean volume (Bld) [Entitic vol] 10.5 fL Normal 9.5-13.5 [facility] Comment on above: Performed By: #### C BC ####[facility] Hsssztahfg9598 [place] [id number]. Chrissy Frazier PLT 402 103/ul Normal 150-450 [facility] Comment on above: Performed By: #### C BC ####[facility] Ljkqvycklc1929 [place] [address]Dr. Chrissy Frazier RBC 5.27 106/ul Normal 4.70-6.10 [facility] Comment on above: Performed By: #### C BC ####[facility] [address]cem[address] [place], [place] [id number]. Chrissy Frazier WBC 18.6 103/ul Critically high 4.0-11.0 [facility] Comment on above: Performed By: #### C BC ####[facility] Eozodkifey[address] [place], [place] [id number]. Chrissy Frazier CULTURE BLOODon 10-23-2022 Microscopic examination of blood, culture Culture Observations: NO GROWTH AT 5 DAYS. Normal [facility] Comment on above: Performed By: #### B LDCX2 ####[facility] Zwzpmopyje2087 [place] [id number]. Chrissy Frazier Microscopic examination of blood, culture Culture Observations: NO GROWTH AT 5 DAYS. Normal [facility] Comment on above: Performed By: #### B LDCX1 ####[facility] Yvzlrlgrrg1863 [place] [id number]. Chrissy Frazier CULTURE URINEon 10-23-2022 CULTURE URINE Culture Observations : NO GROWTH. Normal [facility] Comment on above: Performed By: #### U RCX ####[facility] Xadkyikzwb7154 [place] [address]Dr. Chrissy Frazier Covid-19 PCR (CVDTB)on SARS-CoV-2 (COVID-19) RNA RHIANNON+probe Ql (Unsp spec) Not detected Normal NOT DETECTED [facility] Comment on above: Result Comment: [...] for this test is supported by the [place] of Health and Human Service's declaration that [...] be used). Performed By: #### C VDTBH ####[facility] Doewsstrqs9055 [place] [id number]. Chrissy Frazier INFLUENZA A AND B AGon 10-23 INFLUANEGH SEE BELOW Normal [facility] Comment on above: Result Comment: Nega tive for Flu A protein angiten. Infection due to Flu A cannot be ruled out. Flu A angiten in the sample may be below the detection limit of the test. Performed By: #### I NFLUAB ####[facility] Yyeaqahmor[address] [place], [place] [address]Dr. Chrissy Frazier INFLUBNEGH SEE BELOW Normal [facility] Comment on above: Result Comment: Nega tive for Flu B protein antigen. Infection due to Flu B cannot be ruled out. Flu B antigen in the sample may be below the detection limit of the test. Performed By: #### I NFLUAB ####[facility] Bzccdgkrcu[address] [place], [place] [address]Dr. Chrissy Frazier INFLUENZA A AG Negative Normal NEGATIVE SEE COMMENT [facility] Comment on above: Performed By: #### I NFLUAB ####[facility] Mmdohxdcgw[address] [place], [place] [address]Dr. Tishrowan Frazier INFLUENZA B AG Negative Normal NEGATIVE SEE COMMENT [facility] Comment on above: Performed By: #### I NFLUAB ####[facility] Kpfjxztfmz[address] [place], [place] [address]Dr. Chrissy Frazier INTERNAL CONTROLS Within Normal Limits Normal Wi thin Normal Limits [facility] Comment on above: Performed By: #### I NFLUAB ####[facility] Afowvaqvvt[address] [place], [place] [address]Dr. Tishrowan Frazier LACTATE/LACTIC ACIDon 2021 Lactate [Moles/Vol] 2.1 mmol/L Critically high 0.4-1.9 [facility] Comment on above: Performed By: #### L ACT ####[facility] Ypswwvtage75[address] [place], [place] [address]Dr. Chrissy Frazier Lactate [Moles/Vol] 6.9 mmol/L Critically high 0.4-1.9 [facility] Comment on above: Performed By: #### L ACT ####[facility] Vdlxtwlewe[address] [place], [place] [address]Dr. Tishrowan Freddie LIPASEon 10-23-2022 Lipase [Catalytic activity/Vol] 72.0 U/L Critically low 73.0-393.0 [facility] Comment on above: Performed By: #### C OSWALD ADAIR, TERRENCE ####[facility] Ubvweoacvr1779 [place] [address]Dr. Chrissy Frazier PROF 14(COMP METB)on 022 Albumin [Mass/Vol] 3.9 g/dL Normal 3.4-5.0 [facility] Comment on above: Performed By: #### C MANA LIPA, TERRENCE ####[facility] Bsddzfpgur0667 [place] [address]Dr. Chrissy Frazier Albumin/Globulin [Mass ratio] 0.9 {ratio} Normal [facility] Comment on above: Performed By: #### C MANA LIPA, TERRENCE ####[facility] Ugtnxwactc[address] [place], [place] [address]Dr. Chrissy Frazier ALP [Catalytic activity/Vol] 82 U/L Normal 46-116 [facility] Comment on above: Performed By: #### C MANA LIPA, TERRENCE ####[facility] Rwellhddwx[address] [place], [place] [address]Dr. Chrissy Frazier ALT [Catalytic activity/Vol] 25 U/L Normal 16-63 [facility] Comment on above: Performed By: #### C MANA LIPA, TERRENCE ####[facility] [address]vozaybxyb[address] [place], [place] [address]Dr. Chrissy Frazier Anion gap [Moles/Vol] 18.1 mmol/L Normal [facility] Comment on above: Performed By: #### C MANA, LIPA, TERRENCE ####[facility] Lmsbbjaqru7678 [place] [address]Dr. Chrissy Frazier AST [Catalytic activity/Vol] 17 U/L Normal 15-37 [facility] Comment on above: Performed By: #### C MANA, LIPA, TERRENCE ####[facility] Bmmorqmash[address] [place], [place] [address]Dr. Chrissy Frazier Bilirubin [Mass/Vol] 0.5 mg/dL Normal 0.2-1.0 [facility] Comment on above: Performed By: #### C MANA LIPA, TERRENCE ####[facility] Cezwjpfqgh5657 [place] [address]Dr. Chrissy Frazier Calcium [Mass/Vol] 9.1 mg/dL Normal 8.5-10.1 [facility] Comment on above: Performed By: #### C MP LIPA, TERRENCE ####[facility] Deuiptljgu8247 [place] [address]Dr. Chrissy Frazier Chloride [Moles/Vol] 101 mmol/L Normal 98-107 [facility] Comment on above: Performed By: #### C MP LIPA, TERRENCE ####[facility] Rtwkrfcjwp[address] [place], [place] [address]Dr. Chrissy Frazier CO2 [Moles/Vol] 19.2 mmol/L Critically low 21.0-32.0 [facility] Comment on above: Performed By: #### C MANA LIPA, TERRENCE ####[facility] Chzcawguah[address] [place], [place] [address]Dr. Chrissy Frazier Creatinine [Mass/Vol] 1.72 mg/dL Critically high 0.70-1.30 [facility] Comment on above: Performed By: #### C MANA LIPA, TERRENCE ####[facility] Wcmdobozmv[address] [place], [place] [address]Dr. Chrissy Frazier EGFR-AF [place] 56 mL/min/1.73m2 Critically low >=60 [facility] Comment on above: Performed By: #### C MP LIPA, TERRENCE ####[facility] Tvezvymkfy[address] [place], [place] [address]Dr. Chrissy Frazier EGFR-NON AF [place] 46 mL/min/1.73m2 Critically low >=60 [facility] Comment on above: Performed By: #### C MP LIPA, TERRENCE ####[facility] Zgjiycsfdg[address] [place], [place] [address]Dr. Chrissy Frazier Globulin (S) [Mass/Vol] 4.2 g/dL Normal [facility] Comment on above: Performed By: #### C MP LIPA, TERRENCE ####[facility] [address]vbdoathcm[address] [place] [address]Dr. Chrissy Frazier Glucose [Mass/Vol] 126 mg/dL Critically high 74-[address] [facility] Comment on above: Performed By: #### C TESSA ADAIRA, TERRENCE ####[facility] Coilqrtuqt87[address] [place] [address]Dr. Chrissy Frazier Potassium [Moles/Vol] 3.3 mmol/L Critically low 3.5-5.1 [facility] Comment on above: Performed By: #### C MANA LIPA, TERRENCE ####[facility] Rovtonpxqa[address] [place], [place] [address]Dr. Chrissy Frazier Protein [Mass/Vol] 8.1 g/dL Normal 6.4-8.2 [facility] Comment on above: Performed By: #### C MANA LIPA, TERRENCE ####[facility] Vnynkehkdj[address] [place], [place] [address]Dr. Chrissy Frazier Sodium [Moles/Vol] 135 mmol/L Critically low 136-145 Th [facility] Comment on above: Performed By: #### C MANA LIPA, TERRENCE ####[facility] Ejvjgoaecj[address] [place], [place] [address]Dr. Chrissy Frazier Urea nitrogen [Mass/Vol] 13.0 mg/dL Normal 7.0-18.0 [facility] Comment on above: Performed By: #### C MANA LIPA, TERRENCE ####[facility] Axenhwxehv[address] [place], [place] [address]Dr. Chrissy Frazier Urea nitrogen/Creatinine [Mass ratio] 7.6 mg/mg Normal [facility] Comment on above: Performed By: #### C MP LIPA, TERRENCE ####[facility] Kfvsdstwjl[address] [place], [place] [address]Dr. Chrissy Frzaier UA RANDOM W/MICROSCOPICon BACTERIA NONE SEEN Normal NONE SEEN [facility] Comment on above: Performed By: #### U AMIC ####[facility] Eevtbjwrgc20[address] [place] [address]Dr. Chrissy Frazier Bilirubin Ql (U) Negative Normal NEGATIVE [facility] Comment on above: Performed By: #### U AMIC ####[facility] Krhmerqneu3166 [place] [address]Dr. Chrissy Frazier CAST NONE SEEN Normal NONE SEEN [facility] Comment on above: Performed By: #### U AMIC ####[facility] Deaekrivhc2686 [place] [address]Dr. Chrissy Frazier Clarity (U) CLEAR Normal CLEAR [facility] Comment on above: Performed By: #### U AMIC ####[facility] Nroirzraee[address] [place], [place] [address]Dr. Chrissy Frazier Color (U) LT. YELLOW Normal YELLOW [facility] Comment on above: Performed By: #### U AMIC ####[facility] Lzafaoqcud[address] [place], [place] [address]Dr. Tishrowan Frazier Crystals LM Nom (Urine sed) NONE SEEN Normal NONE SEEN [facility] Comment on above: Performed By: #### U AMIC ####[facility] Bfrpdbrdvz5[address] [place], [place] [address]Dr. Chrissy Frazier Epithelial cells LM Ql (Urine sed) FEW Abnormal NONE SEEN /RARE [facility] Comment on above: Performed By: #### U AMIC ####[facility] Rbrnxeesrj6[address] [place], [place] [address]Dr. Chrissy Frazier Glucose Ql (U) Negative Normal NEGATIVE [facility] Comment on above: Performed By: #### U AMIC ####[facility] Sgvsdsvgxh[address] [place], [place] [address]Dr. Chrissy Frazier Hemoglobin Ql (U) Negative Normal NEGATIVE [facility] Comment on above: Performed By: #### U AMIC ####[facility] Xravucygxv8[address] [place], [place] [address]Dr. Chrissy Frazier Ketones Ql (U) 15 mg/dl Abnormal NEGATIVE [facility] Comment on above: Performed By: #### U AMIC ####[facility] Kvgubaumda[address] [place], [place] [address]Dr. Chrissy Frazier LEUKOCYTES Negative Normal NEGATIVE [facility] Comment on above: Performed By: #### U AMIC ####[facility] Mdsjrtmuux9728 [place] [address]Dr. Chrissy Frazier MUCOUS NONE SEEN Normal NONE SEEN [facility] Comment on above: Performed By: #### U AMIC ####[facility] Qxfqfcjtea9175 [place] [address]Dr. Chrissy Frazier Nitrite Ql (U) Negative Normal NEGATIVE [facility] Comment on above: Performed By: #### U AMIC ####[facility] Lhmqbeesel2982 [place] [address]Dr. Chrissy Frazier pH (U) 6.0 [pH] Normal 5-9 [facility] Comment on above: Performed By: #### U AMIC ####[facility] Ktmiahalrz3043 [place] [address]Dr. Chrissy Frazier RBC 0-2 Normal 0-2 [facility] Comment on above: Performed By: #### U AMIC ####[facility] Ahevflstna0654 [place] [address]Dr. Chrissy Frazier SPEC GRAVITY 1.010 Normal 1.005-<=1.025 [facility] Comment on above: Performed By: #### U AMIC ####[facility] Xbknojlutp[address] [place], [place] [address]Dr. Chrissy Frazier UA PROTEIN Negative Normal NEGATIVE/ TRACE [facility] Comment on above: Performed By: #### U AMIC ####[facility] Epbzmdmmxx6501 [place] [address]Dr. Chrissy Frazier Urobilinogen Qn (U) 0.2 {Estrellita'U}/dL Normal 0.2 - 1. 0 [facility] Comment on above: Performed By: #### U AMIC ####[facility] Opcbbgssgt[address] [place], [place] [address]Dr. Chrissy Frazier WBC NONE SEEN Normal NONE SEEN [facility] Comment on above: Performed By: #### U AMIC ####[facility] Pozhftilpd2290 [place] [address]Dr. Chrissy Frazier AMYLASEon 10-22-2022 Amylase [Catalytic activity/Vol] 28 U/L Normal 25-115 [facility] Comment on above: Performed By: #### L IPA, CMP, TERRENCE ####[facility] Jolnrdumlt8286 [place] [address]Dr. Chrissy Frazier CBC AUTO DIFFon 10-22-2022 BASO # 0.0 103/ul Normal 0.0-0.1 [facility] Comment on above: Performed By: #### C BC ####[facility] Obgxhntxzl1587 [place] [address]DrNancy Frazier Basophils/100 WBC (Bld) 0.2 % Normal 0.2-2.0 [facility] Comment on above: Performed By: #### C BC ####[facility] Ibvggkdimg[address] [place], [place] [address]DrNancy Frazier EO # 0.0 103/ul Normal 0.0-0.7 [facility] Comment on above: Performed By: #### C BC ####[facility] Xssmkjbang[address] [place], [place] [address]DrNancy Frazier Eosinophils/100 WBC (Bld) 0.1 % Critically low 0.9-7.0 [facility] Comment on above: Performed By: #### C BC ####[facility] Eotfzhdwrl[address] [place], [place] [address]Dr. Chrissy Frazier Erythrocyte distribution width (RBC) [Ratio] 14.4 % Normal 11.0-15.0 [facility] Comment on above: Performed By: #### C BC ####[facility] Hlufuwtmxk[address] [place], [place] [address]Dr. Chrissy Frazier Hematocrit (Bld) [Volume fraction] 45.2 % Normal 42.0-54.0 [facility] Comment on above: Performed By: #### C BC ####[facility] Zkzbrooqzg[address] [place], [place] [address]Dr. Chrissy Frazier Hemoglobin (Bld) [Mass/Vol] 15.4 g/dL Normal 14.0-18.0 [facility] Comment on above: Performed By: #### C BC ####[facility] Smdfbstzeh[address] [place], [place] [address]DrNancy Frazier IG # 0.07 10e3/ul Critically high 0.00-0.03 [facility] Comment on above: Performed By: #### C BC ####[facility] Nyromlvhjj2438 [place] [address]DrNancy Frazier IG % 0.4 % Normal 0.0-0.5 [facility] Comment on above: Performed By: #### C BC ####[facility] Adgknlawdo7914 [place] [address]DrNancy Frazier LYMPH # 2.0 103/ul Normal 1.2-3.8 [facility] Comment on above: Performed By: #### C BC ####[facility] Gjbegtwzlc5779 [place] [address]DrNancy Frazier Lymphocytes/100 WBC (Bld) 12.2 % Critically low 20.5-60.0 [facility] Comment on above: Performed By: #### C BC ####[facility] Buayszxtye[address] [place], [place] [address]DrNancy Frazier MANUAL DIFF REQ NO Normal [facility] Comment on above: Performed By: #### C BC ####[facility] Xrczmojaml0464 [place] [address]DrNancy Frazier MCH (RBC) [Entitic mass] 28.3 pg Normal 25.9-34.0 [facility] Comment on above: Performed By: #### C BC ####[facility] Ukzrvekdmf4896 [place] [address]DrNancy Frazier MCHC (RBC) [Mass/Vol] 34.1 g/dL Normal 29.9-35.2 [facility] Comment on above: Performed By: #### C BC ####[facility] Gvquzgadlw8198 [place] [address]DrNancy Frazier MCV (RBC) [Entitic vol] 82.9 fL Normal 80.0-94.0 [facility] Comment on above: Performed By: #### C BC ####[facility] Iddtcpuddp45[address] [place], [place] [address]DrNancy Frazier MONO # 0.3 103/ul Normal 0.3-0.8 [facility] Comment on above: Performed By: #### C BC ####[facility] Nawfemwzna5905 [place] [address]Dr. Chrissy Frazier Monocytes/100 WBC (Bld) 2.0 % Normal 1.7-12.0 [facility] Comment on above: Performed By: #### C BC ####[facility] Riixdzrumh24[address] [place], [place] [address]Dr. Chrissy Frazier NEUT # 14.0 103/ul Critically high 1.4-6.5 [facility] Comment on above: Performed By: #### C BC ####[facility] Merqqfkbbx7703 [place] [address]Dr. Chrissy Frazier Neutrophils/100 WBC (Bld) 85.1 % Critically high 43.0-75.0 [facility] Comment on above: Performed By: #### C BC ####[facility] Jovpnswfqo69[address] [place], [place] [address]Dr. Chrissy Frazier Platelet mean volume (Bld) [Entitic vol] 10.6 fL Normal 9.5-13.5 [facility] Comment on above: Performed By: #### C BC ####[facility] Imykyozbmd94[address] [place], [place] [address]Dr. Chrissy Frazier PLT 411 103/ul Normal 150-450 [facility] Comment on above: Performed By: #### C BC ####[facility] Mudebupwmn[address] [place], [place] [address]Dr. Chrissy Frazier RBC 5.45 106/ul Normal 4.70-6.10 [facility] Comment on above: Performed By: #### C BC ####[facility] Gwxiskyuel[address] [place], [place] [address]Dr. Chrissy Frazier WBC 16.5 103/ul Critically high 4.0-11.0 [facility] Comment on above: Performed By: #### C BC ####[facility] Tabcsczzze8678[address] [place], [place] [address]Dr. Chrissy Frazier LIPASEon 10-22-2022 Lipase [Catalytic activity/Vol] 57.0 U/L Critically low 73.0-393.0 [facility] Comment on above: Performed By: #### L IPA CMP, TERRENCE ####[facility] Wedheohsrb6717 [place] [address]Dr. Chrissy Frazier PROF 14(COMP METB)on 022 Albumin [Mass/Vol] 4.2 g/dL Normal 3.4-5.0 [facility] Comment on above: Performed By: #### L IPA CMP, TERRENCE ####[facility] Qfaqkabcnx3300 [place] [address]Dr. Chrissy Frazier Albumin/Globulin [Mass ratio] 1.0 {ratio} Normal [facility] Comment on above: Performed By: #### L IPA CMP, TERRENCE ####[facility] Wmcevcjpup[address] [place], [place] [address]Dr. Chrissy Frazier ALP [Catalytic activity/Vol] 92 U/L Normal 46-116 [facility] Comment on above: Performed By: #### L IPA CMP, TERRENCE ####[facility] Hpifsovoff8[address] [place], [place] [address]Dr. Chrissy Frazier ALT [Catalytic activity/Vol] 26 U/L Normal 16-63 [facility] Comment on above: Performed By: #### L IPA CMP, TERRENCE ####[facility] Xtfshjcemb9[address] [place], [place] [address]Dr. Chrissy Frazier Anion gap [Moles/Vol] 19.5 mmol/L Normal [facility] Comment on above: Performed By: #### L IPA, CMP, TERRENCE ####[facility] Zzjqpsrdpp1760 [place] [address]Dr. Chrissy Frazier AST [Catalytic activity/Vol] 19 U/L Normal 15-37 [facility] Comment on above: Performed By: #### L IPA, CMP, TERRENCE ####[facility] Pcqqploczz[address] [place], [place] [address]Dr. Chrissy Frazier Bilirubin [Mass/Vol] 0.7 mg/dL Normal 0.2-1.0 [facility] Comment on above: Performed By: #### L IPA, CMP, TERRENCE ####[facility] Vlslsijhat0575 [place] [address]Dr. Chrissy Frazier Calcium [Mass/Vol] 9.6 mg/dL Normal 8.5-10.1 [facility] Comment on above: Performed By: #### L IPA, CMP, TERRENCE ####[facility] Phlloexnip2719 [place] [address]Dr. Chrissy Frazier Chloride [Moles/Vol] 102 mmol/L Normal 98-107 [facility] Comment on above: Performed By: #### L IPA, CMP, TERRENCE ####[facility] Sjeqdwjimv[address] [place], [place] [address]Dr. Chrissy Frazier CO2 [Moles/Vol] 19.1 mmol/L Critically low 21.0-32.0 [facility] Comment on above: Performed By: #### L IPA, CMP, TERRENCE ####[facility] Pzzerbifvg43[address] [place], [place] [address]Dr. Chrissy Frazier Creatinine [Mass/Vol] 1.47 mg/dL Critically high 0.70-1.30 [facility] Comment on above: Performed By: #### L IPA, CMP, TERRENCE ####[facility] Wxldxuncol4050[address] [place], [place] [address]Dr. Chrissy Frazier EGFR-AF [place] >60 Normal >=60 [facility] Comment on above: Performed By: #### L IPA, CMP, TERRENCE ####[facility] Gmlwvmayfl[address] [place], [place] [address]Dr. Chrissy Frazier EGFR-NON AF [place] 56 mL/min/1.73m2 Critically low >=60 [facility] Comment on above: Performed By: #### L IPA, CMP, TERRENCE ####[facility] Vptlmgvhll[address] [place], [place] [address]Dr. Chrissy Frazier Globulin (S) [Mass/Vol] 4.3 g/dL Normal [facility] Comment on above: Performed By: #### L IPA, CMP, TERRENCE ####[facility] Bfmolabxse17[address] [place], [place] [address]Dr. Chrissy Frazier Glucose [Mass/Vol] 189 mg/dL Critically high 74-106 [facility] Comment on above: Performed By: #### L IPA, CMP, TERRENCE ####[facility] Zgdcbifwdw6407 [place] [address]Dr. Chrissy Frazier Potassium [Moles/Vol] 4.6 mmol/L Normal 3.5-5.1 [facility] Comment on above: Performed By: #### L IPA CMP, TERRENCE ####[facility] Grhsiiuawh[address] [place], [place] [address]Dr. Chrissy Frazier Protein [Mass/Vol] 8.5 g/dL Critically high 6.4-8.2 [facility] Comment on above: Performed By: #### L IPA, CMP, TERRENCE ####[facility] Cumdtyulzq6[address] [place], [place] [address]Dr. Chrissy Frazier Sodium [Moles/Vol] 136 mmol/L Normal 136-145 [facility] Comment on above: Performed By: #### L IPA CMP, TERRENCE ####[facility] Whxcifawyu[address] [place], [place] [address]Dr. Chrissy Frazier Urea nitrogen [Mass/Vol] 16.0 mg/dL Normal 7.0-18.0 [facility] Comment on above: Performed By: #### L IPA CMP, TERRENCE ####[facility] K[address]cbgxhqfj[address] [place], [place] [address]Dr. Chrissy Frazier Urea nitrogen/Creatinine [Mass ratio] 10.9 mg/mg Normal [facility] Comment on above: Performed By: #### L IPA, CMP, TERRENCE ####[facility] Smiactobkl[address] [place], [place] [address]Dr. Chrissy Frazier AMYLASEon 09-03-2022 Amylase [Catalytic activity/Vol] 25 U/L Normal 25-115 [facility] Comment on above: Performed By: #### L IPA TERRENCE, CMP ####[facility] Gatgctmxbh[address] [place], [place] [address]Dr. Chrissy Frazier CBC AUTO DIFFon 09-03-2022 BASO # 0.0 103/ul Normal 0.0-0.1 [facility] Comment on above: Performed By: #### C BC ####[facility] Azgjcjtxwj8[address] [place] [id number]. Chrissy Frazier Basophils/100 WBC (Bld) 0.1 % Critically low 0.2-2.0 [facility] Comment on above: Performed By: #### C BC ####[facility] Artpkswblb[address] [place], [place] [id number]. Chrissy Frazier EO # 0.0 103/ul Normal 0.0-0.7 [facility] Comment on above: Performed By: #### C BC ####[facility] Kkpdzzywes6126[address] [place], [place] [address]Dr. Chrissy Frazier Eosinophils/100 WBC (Bld) 0.1 % Critically low 0.9-7.0 [facility] Comment on above: Performed By: #### C BC ####[facility] Tlpceiknfv[address] [place], [place] [address]Dr. Chrissy Frazier Erythrocyte distribution width (RBC) [Ratio] 14.0 % Normal 11.0-15.0 [facility] Comment on above: Performed By: #### C BC ####[facility] Uejaroeqou[address] [place], [place] [address]Dr. Chrissy Frazier Hematocrit (Bld) [Volume fraction] 42.5 % Normal 42.0-54.0 [facility] Comment on above: Performed By: #### C BC ####[facility] Bmlhrvhgza72[address] [place], [place] [address]Dr. Chrissy Frazier Hemoglobin (Bld) [Mass/Vol] 14.1 g/dL Normal 14.0-18.0 [facility] Comment on above: Performed By: #### C BC ####[facility] Qxmuiwcknb74[address] [place], [place] [address]Dr. Chrissy Frazier IG # 0.06 10e3/ul Critically high 0.00-0.03 [facility] Comment on above: Performed By: #### C BC ####[facility] Tvdlqtmesr[address] [place], [place] [address]Dr. Chrissy Frazier IG % 0.4 % Normal 0.0-0.5 [facility] Comment on above: Performed By: #### C BC ####[facility] Qvogfjbnxt7923 [place] [id number]. Chrissy Frazier LYMPH # 2.5 103/ul Normal 1.2-3.8 [facility] Comment on above: Performed By: #### C BC ####[facility] Dzrpqguofm4908 [place] [id number]. Chrissy Frazier Lymphocytes/100 WBC (Bld) 16.3 % Critically low 20.5-60.0 [facility] Comment on above: Performed By: #### C BC ####[facility] Zxaujxwxbd4807 [place] [address]Dr. Chrissy Frazier MANUAL DIFF REQ NO Normal [facility] Comment on above: Performed By: #### C BC ####[facility] Eesgcjklip7113 [place] [address]Dr. Chrissy Frazier MCH (RBC) [Entitic mass] 28.1 pg Normal 25.9-34.0 [facility] Comment on above: Performed By: #### C BC ####[facility] Ssejwkvxvz8419 [place] [id number]. Chrissy Frazier MCHC (RBC) [Mass/Vol] 33.2 g/dL Normal 29.9-35.2 [facility] Comment on above: Performed By: #### C BC ####[facility] Ttvaaihzpb8649 [place] [id number]. Chrissy Frazier MCV (RBC) [Entitic vol] 84.8 fL Normal 80.0-94.0 [facility] Comment on above: Performed By: #### C BC ####[facility] Rryahtxlmm3128 [place] [id number]. Chrissy Frazier MONO # 1.1 103/ul Critically high 0.3-0.8 [facility] Comment on above: Performed By: #### C BC ####[facility] Jkxiqjymbl0889 [place] [id number]. Chrissy Frazier Monocytes/100 WBC (Bld) 7.4 % Normal 1.7-12.0 [facility] Comment on above: Performed By: #### C BC ####[facility] Ueqktlapfg6421 [place] [id number]. Chrissy Frazier NEUT # 11.5 103/ul Critically high 1.4-6.5 [facility] Comment on above: Performed By: #### C BC ####[facility] Odvbdyzubo3228 [place] [id number] Frazier Neutrophils/100 WBC (Bld) 75.7 % Critically high 43.0-75.0 [facility] Comment on above: Performed By: #### C BC ####[facility] Utlolnyiae2106 [place] [address]Dr. Chrissy Freddie Platelet mean volume (Bld) [Entitic vol] 10.6 fL Normal 9.5-13.5 [facility] Comment on above: Performed By: #### C BC ####[facility] Roqthlzbtr3299 [place] [address]Dr. Chrissy Frazier PLT 310 103/ul Normal 150-450 [facility] Comment on above: Performed By: #### C BC ####[facility] Tyjtvxhobb5975 [place] [id number]. Chrissy Freddie RBC 5.01 106/ul Normal 4.70-6.10 [facility] Comment on above: Performed By: #### C BC ####[facility] Pzzwxntkid7751 [place] [id number] Chrissy Frazier WBC 15.2 103/ul Critically high 4.0-11.0 [facility] Comment on above: Performed By: #### C BC ####[facility] Shpkhyacfc3404 [place] [id number] Chrissy Freddie LIPASEon 09-03-2022 Lipase [Catalytic activity/Vol] 46.0 U/L Critically low 73.0-393.0 [facility] Comment on above: Performed By: #### L IPA, TERRENCE, CMP ####[facility] Uikohokydh8317 [place] [id number] Frazier PROF 14(COMP METB)on 10-14-2 022 Albumin [Mass/Vol] 3.7 g/dL Normal 3.4-5.0 [facility] Comment on above: Performed By: #### L TERRENCE VICTORIA, CMP ####[facility] Pjgrsgrihp3054 [place] [address]Dr. Chrissy Frazier Albumin/Globulin [Mass ratio] 1.0 {ratio} Normal [facility] Comment on above: Performed By: #### L TERRENCE VICTORIA, CMP ####[facility] Ogpkpapdbl0934 [place] [address]Dr. Chrissy Frazier ALP [Catalytic activity/Vol] 65 U/L Normal 46-116 [facility] Comment on above: Performed By: #### L TERRENCE VICTORIA, CMP ####[facility] Hjizzaljlo[address] [place], [place] [address]Dr. Chrissy Frazier ALT [Catalytic activity/Vol] 42 U/L Normal 16-63 [facility] Comment on above: Performed By: #### L TERRENCE VICTORIA, CMP ####[facility] Vgfbetxele[address] [place], [place] [address]Dr. Chrissy Frazier Anion gap [Moles/Vol] 14.4 mmol/L Normal [facility] Comment on above: Performed By: #### L TERRENCE VICTORIA, CMP ####[facility] Vfktbadbwe[address] [place], [place] [address]Dr. Chrissy Frazier AST [Catalytic activity/Vol] 16 U/L Normal 15-37 [facility] Comment on above: Performed By: #### L TERRENCE VICTORIA, CMP ####[facility] Byxvwoahtp5004 [place] [address]Dr. Chrissy Frazier Bilirubin [Mass/Vol] 0.4 mg/dL Normal 0.2-1.0 [facility] Comment on above: Performed By: #### L TERRENCE VICTORIA, CMP ####[facility] Flzuxzgcwi[address] [place], [place] [address]Dr. Chrissy Frazier Calcium [Mass/Vol] 8.7 mg/dL Normal 8.5-10.1 [facility] Comment on above: Performed By: #### L TERRENCE VICTORIA, CMP ####[facility] Rjtbdlfjqy2734 [place] [id number]. Chrissy Frazier Chloride [Moles/Vol] 105 mmol/L Normal 98-107 [facility] Comment on above: Performed By: #### L TERRENCE VICTORIA, CMP ####[facility] Zowerwnvfn9041 [place] [address]Dr. Chrissy Frazier CO2 [Moles/Vol] 22.6 mmol/L Normal 21.0-32.0 [facility] Comment on above: Performed By: #### L TERRENCE VICTORIA, CMP ####[facility] Radpfkqjkt5259 [place] [address]Dr. Chrissy Frazier Creatinine [Mass/Vol] 1.11 mg/dL Normal 0.70-1.30 [facility] Comment on above: Performed By: #### L TERRENCE VICTORIA, CMP ####[facility] Eshpclgsrq[address] [place], [place] [address]Dr. Chrissy Frazier EGFR-AF [place] >60 Normal >=60 [facility] Comment on above: Performed By: #### L TERRENCE VICTORIA, CMP ####[facility] Rwqisdrbra7476 [place] [address]Dr. Chrissy Frazier EGFR-NON AF [place] >60 Normal >=60 [facility] Comment on above: Performed By: #### L TERRENCE VICTORIA, CMP ####[facility] Tjxuyxloqj8029 [place] [address]Dr. Chrissy Frazier Globulin (S) [Mass/Vol] 3.7 g/dL Normal [facility] Comment on above: Performed By: #### L TERRENCE VICTORIA, CMP ####[facility] Pkryhjwahu2111 [place] [address]Dr. Chrissy Frazier Glucose [Mass/Vol] 121 mg/dL Critically high 74-[address] [facility] Comment on above: Performed By: #### L TERRENCE VICTORIA, CMP ####[facility] Cddjfpfood1002 [place] [address]Dr. Chrissy Frazier Potassium [Moles/Vol] 4.0 mmol/L Normal 3.5-5.1 [facility] Comment on above: Performed By: #### L TERRENCE VICTORIA, CMP ####[facility] Vgiojuyoux2145 [place] [address]Dr. Chrissy Frazier Protein [Mass/Vol] 7.4 g/dL Normal 6.4-8.2 [facility] Comment on above: Performed By: #### L IPA, TERRENCE, CMP ####[facility] Grqsqeehqk[address] [place], [place] [address]Dr. Chrissy Frazier Sodium [Moles/Vol] 138 mmol/L Normal 136-145 [facility] Comment on above: Performed By: #### L IPA, TERRENCE, CMP ####[facility] Uckdvcpxls99[address] [place], [place] [address]Dr. Chrissy Frazier Urea nitrogen [Mass/Vol] 6.0 mg/dL Critically low 7.0-18.0 [facility] Comment on above: Performed By: #### L IPA, TERRENCE, CMP ####[facility] Tovtwdfnin25[address] [place], [place] [address]Dr. Chrissy Frazier Urea nitrogen/Creatinine [Mass ratio] 5.4 mg/mg Normal [facility] Comment on above: Performed By: #### L IPA, TERRENCE, CMP ####[facility] Aiflbbobof[address] [place], [place] [address]Dr. Chrissy Frazier AMYLASEon 09-02-2022 Amylase [Catalytic activity/Vol] 29 U/L Normal 25-115 [facility] Comment on above: Performed By: #### A MY, CMP, LIPA ####[facility] Qxiqedosro[address] [place], [place] [address]Dr. Chrissy Frazier CBC AUTO DIFFon 09-02-2022 BASO # 0.1 103/ul Normal 0.0-0.1 [facility] Comment on above: Performed By: #### C BC ####[facility] Gpvqtxovfw[address] [place], [place] [address]Dr. Chrissy Frazier Basophils/100 WBC (Bld) 0.4 % Normal 0.2-2.0 [facility] Comment on above: Performed By: #### C BC ####[facility] Mgogzfrbvm65[address] [place], [place] [address]Dr. Chrissy Frazier EO # 0.1 103/ul Normal 0.0-0.7 [facility] Comment on above: Performed By: #### C BC ####[facility] Dcnkybaxta1705 [place] [address]Dr. Chrissy Frazier Eosinophils/100 WBC (Bld) 0.7 % Critically low 0.9-7.0 [facility] Comment on above: Performed By: #### C BC ####[facility] Tglelbmdoh5513 [place] [address]Dr. Chrissy Frazier Erythrocyte distribution width (RBC) [Ratio] 13.7 % Normal 11.0-15.0 [facility] Comment on above: Performed By: #### C BC ####[facility] Gcmrfzxhfp17[address] [place], [place] [address]Dr. Chrissy Frazier Hematocrit (Bld) [Volume fraction] 48.3 % Normal 42.0-54.0 [facility] Comment on above: Performed By: #### C BC ####[facility] Irhakpnobv[address] [place], [place] [address]Dr. Chrissy Frazier Hemoglobin (Bld) [Mass/Vol] 16.0 g/dL Normal 14.0-18.0 [facility] Comment on above: Performed By: #### C BC ####[facility] Wzdzzqxaar7[address] [place], [place] [address]Dr. Chrissy Frazier IG # 0.09 10e3/ul Critically high 0.00-0.03 [facility] Comment on above: Performed By: #### C BC ####[facility] Rlcprlsshz6476 [place] [address]Dr. Chrissy Frazier IG % 0.5 % Normal 0.0-0.5 [facility] Comment on above: Performed By: #### C BC ####[facility] Xyvphhbrfj[address] [place], [place] [address]Dr. Chrissy Frazier LYMPH # 3.7 103/ul Normal 1.2-3.8 [facility] Comment on above: Performed By: #### C BC ####[facility] Uzuwgvpsch[address] [place] [address]. Chrissy Frazier Lymphocytes/100 WBC (Bld) 21.5 % Normal 20.5-60.0 [facility] Comment on above: Performed By: #### C BC ####[facility] Cewfswlwfi4177 [place] [address]DraNncy Frazier MANUAL DIFF REQ NO Normal [facility] Comment on above: Performed By: #### C BC ####[facility] Hbzgonpffp1173 [place] [address]Dr. Chrissy Frazier MCH (RBC) [Entitic mass] 28.1 pg Normal 25.9-34.0 [facility] Comment on above: Performed By: #### C BC ####[facility] Dzplverdsu[address] [place], [place] [address]Dr. Chrissy Frazier MCHC (RBC) [Mass/Vol] 33.1 g/dL Normal 29.9-35.2 [facility] Comment on above: Performed By: #### C BC ####[facility] Lekqhhatan[address] [place], [place] [address]Dr. Chrissy Frazier MCV (RBC) [Entitic vol] 84.7 fL Normal 80.0-94.0 [facility] Comment on above: Performed By: #### C BC ####[facility] Kcrgltcltz[address] [place], [place] [address]Dr. Chrissy Frazier MONO # 0.7 103/ul Normal 0.3-0.8 [facility] Comment on above: Performed By: #### C BC ####[facility] Neqhrgtbez62[address] [place], [place] [address]Dr. Chrissy Frazier Monocytes/100 WBC (Bld) 4.2 % Normal 1.7-12.0 [facility] Comment on above: Performed By: #### C BC ####[facility] Bryscwxzqa7[address] [place], [place] [address]DrNancy Frazier NEUT # 12.4 103/ul Critically high 1.4-6.5 [facility] Comment on above: Performed By: #### C BC ####[facility] Evpegsiwdn4[address] [place], [place] [address]Dr. Chrissy Frazier Neutrophils/100 WBC (Bld) 72.7 % Normal 43.0-75.0 [facility] Comment on above: Performed By: #### C BC ####[facility] Mqmaggarfk3603 [place] [address]Dr. Chrissy Frazier Platelet mean volume (Bld) [Entitic vol] 10.9 fL Normal 9.5-13.5 [facility] Comment on above: Performed By: #### C BC ####[facility] Uiaqyvkwvu3975 [place] [id number]. Chrissy Frazier PLT 386 103/ul Normal 150-450 [facility] Comment on above: Performed By: #### C BC ####[facility] Olucqoqkdt6615 [place] [address]Dr. Chrissy Frazier RBC 5.70 106/ul Normal 4.70-6.10 [facility] Comment on above: Performed By: #### C BC ####[facility] Poybapxdbh2794 [place] [address]Dr. Chrissy Frazier WBC 17.0 103/ul Critically high 4.0-11.0 [facility] Comment on above: Performed By: #### C BC ####[facility] Gqqwvdtwtg2858 [place] [address]Dr. Chrissy Frazier [facility] SARS-CoV-2 (COVID-19) RNA RHIANNON+probe Ql (Unsp spec) Not detected Normal NOT DETECTED [facility] Comment on above: Result Comment: [...] for this test is supported by the [place] of Health and Human Service's declaration that [...] be used). Performed By: #### C VDTBH ####[facility] Urueqyajox0099 [place] [address]Dr. Chrissy Frazier LACTATE/LACTIC ACIDon 2021 Lactate [Moles/Vol] 7.1 mmol/L Critically high 0.4-1.9 [facility] Comment on above: Performed By: #### L ACT ####[facility] Zglgmdajfl[address] [place], [place] [address]Dr. Tishrowan Frazier Lactate [Moles/Vol] 8.6 mmol/L Critically high 0.4-1.9 [facility] Comment on above: Performed By: #### L ACT ####[facility] Pmrmytngkw[address] [place], [place] [address]Dr. rowan Frazier LIPASEon 09-02-2022 Lipase [Catalytic activity/Vol] 60.0 U/L Critically low 73.0-393.0 [facility] Comment on above: Performed By: #### A MY, CMP, LIPA ####[facility] Duifuyolcc[address] [place], [place] [address]Dr. Chrissy Frazier POINT OF CARE GLUCOSEon 08-21 Glucose [Mass/Vol] 140 mg/dL Critically high 74-[address] [facility] Comment on above: Performed By: #### P OCGLUC ####[facility] Hmxlgzdfxi8938[address] [place], [place] [address]Dr. Chrissy Frazier PROF 14(COMP METB)on 022 Albumin [Mass/Vol] 4.3 g/dL Normal 3.4-5.0 [facility] Comment on above: Performed By: #### A MY, CMP, LIPA ####[facility] Wpurnauizg101[address] [place], [place] [address]Dr. rowan Frazier Albumin/Globulin [Mass ratio] 1.0 {ratio} Normal [facility] Comment on above: Performed By: #### A MY, CMP, LIPA ####[facility] Gvfrnlbzhh6977 [place] [address]Dr. Chrissy Frazier ALP [Catalytic activity/Vol] 82 U/L Normal 46-116 [facility] Comment on above: Performed By: #### A MY, CMP, LIPA ####[facility] Majjaxzbsu9332 [place] [address]Dr. Chrissy Farzier ALT [Catalytic activity/Vol] 48 U/L Normal 16-63 [facility] Comment on above: Performed By: #### A MY, CMP, LIPA ####[facility] Iehchigjol[address] [place], [place] [address]Dr. Chrissy Frazier Anion gap [Moles/Vol] 25.3 mmol/L Normal [facility] Comment on above: Performed By: #### A MY, CMP, LIPA ####[facility] Rzkfrhvbtq[address] [place], [place] [address]Dr. Chrissy Frazier AST [Catalytic activity/Vol] 33 U/L Normal 15-37 [facility] Comment on above: Performed By: #### A MY, CMP, LIPA ####[facility] Mttgxigqxr11[address] [place], [place] [address]Dr. Chrissy Frazier Bilirubin [Mass/Vol] 0.7 mg/dL Normal 0.2-1.0 [facility] Comment on above: Performed By: #### A MY, CMP, LIPA ####[facility] Artryegpko18[address] [place], [place] [address]Dr. Chrissy Frazier Calcium [Mass/Vol] 9.5 mg/dL Normal 8.5-10.1 [facility] Comment on above: Performed By: #### A MY, CMP, LIPA ####[facility] Kqqmkxvsct[address] [place], [place] [address]Dr. Chrissy Frazier Chloride [Moles/Vol] 100 mmol/L Normal 98-107 [facility] Comment on above: Performed By: #### A MY, CMP, LIPA ####[facility] Jtolnhabrv[address] [place], [place] [address]Dr. Chrissy Frazier CO2 [Moles/Vol] 14.2 mmol/L Critically low 21.0-32.0 [facility] Comment on above: Performed By: #### A MY, CMP, LIPA ####[facility] Ftusucfmvk4078 [place] [address]Dr. Chrissy Frazier Creatinine [Mass/Vol] 1.70 mg/dL Critically high 0.70-1.30 [facility] Comment on above: Performed By: #### A MY, CMP, LIPA ####[facility] Ylxtdzfwlr4377 [place] [address]Dr. Chrissy Frazier EGFR-AF [place] 57 mL/min/1.73m2 Critically low >=60 [facility] Comment on above: Performed By: #### A MY, CMP, LIPA ####[facility] Drbqpiveav5432 [place] [address]Dr. Chrissy Frazier EGFR-NON AF [place] 47 mL/min/1.73m2 Critically low >=60 [facility] Comment on above: Performed By: #### A MY, CMP, LIPA ####[facility] Ojlqlsbeiv8372 [place] [address]Dr. Chrissy Frazier Globulin (S) [Mass/Vol] 4.2 g/dL Normal [facility] Comment on above: Performed By: #### A MY, CMP, LIPA ####[facility] Lawhrpfnrf6263 [place] [address]Dr. Chrissy Frazier Glucose [Mass/Vol] 212 mg/dL Critically high 74-106 [facility] Comment on above: Performed By: #### A MY, CMP, LIPA ####[facility] Jyojyxhdxz0788 [place] [address]Dr. Chrissy Frazier Potassium [Moles/Vol] 3.5 mmol/L Normal 3.5-5.1 [facility] Comment on above: Performed By: #### A MY, CMP, LIPA ####[facility] Krzwpirqxj7631 [place] [address]Dr. Chrissy Frazier Protein [Mass/Vol] 8.5 g/dL Critically high 6.4-8.2 [facility] Comment on above: Performed By: #### A MY, CMP, LIPA ####[facility] Aozintjbrt2871 [place] [address]Dr. Chrissy Frazier Sodium [Moles/Vol] 136 mmol/L Normal 136-145 [facility] Comment on above: Performed By: #### A MY, CMP, LIPA ####[facility] Kfmliblduy1693 [place] [address]Dr. Chrissy Frazier Urea nitrogen [Mass/Vol] 9.0 mg/dL Normal 7.0-18.0 [facility] Comment on above: Performed By: #### A MY, CMP, LIPA ####[facility] Vteogpvlgc[address] [place], [place] [address]Dr. Chrissy Frazier Urea nitrogen/Creatinine [Mass ratio] 5.3 mg/mg Normal [facility] Comment on above: Performed By: #### A MY, CMP, LIPA ####[facility] Rfguruzjhw[address] [place], [place] [address]Dr. Chrissy Frazier AMYLASEon 07-07-2022 Amylase [Catalytic activity/Vol] 33 U/L Normal 25-115 [facility] Comment on above: Performed By: #### C MP, TERRENCE, BNP, LIPA ####[facility] Ezghvddift9[address] [place], [place] [address]Dr. Chrissy Frazier BNPon 07-07-2022 Natriuretic peptide B (Bld) [Mass/Vol] 29.0 pg/mL Normal <=450.0 [facility] Comment on above: Performed By: #### C MP, TERRENCE, BNP, LIPA ####[facility] Psuchjnkpa87[address] [place], [place] [address]Dr. Chrissy Frazier CBC AUTO DIFFon 07-07-2022 BASO # 0.0 103/ul Normal 0.0-0.1 [facility] Comment on above: Performed By: #### C BC ####[facility] Qexmhvsmcs13[address] [place], [place] [address]Dr. Chrissy Frazier Basophils/100 WBC (Bld) 0.4 % Normal 0.2-2.0 [facility] Comment on above: Performed By: #### C BC ####[facility] Twaodzzjht0169 [place] [address]Dr. Chrissy Frazier EO # 0.3 103/ul Normal 0.0-0.7 [facility] Comment on above: Performed By: #### C BC ####[facility] Nsdwmdmrgo5343 [place] [address]Dr. Chrissy Frazier Eosinophils/100 WBC (Bld) 3.0 % Normal 0.9-7.0 [facility] Comment on above: Performed By: #### C BC ####[facility] Pyoxitscot8020[address] [place], [place] [address]Dr. Chrissy Frazier Erythrocyte distribution width (RBC) [Ratio] 14.0 % Normal 11.0-15.0 [facility] Comment on above: Performed By: #### C BC ####[facility] Djtfnpooiz16[address] [place], [place] [address]Dr. Chrissy Frazier Hematocrit (Bld) [Volume fraction] 42.8 % Normal 42.0-54.0 [facility] Comment on above: Performed By: #### C BC ####[facility] Hndwichagx20[address] [place], [place] [address]Dr. Chrissy Frazier Hemoglobin (Bld) [Mass/Vol] 14.3 g/dL Normal 14.0-18.0 [facility] Comment on above: Result Comment: IV F LUIDS RUNNING Performed By: #### C BC ####[facility] Ifrpeenctd[address] [place], [place] [address]Dr. Chrissy Frazier IG # 0.05 10e3/ul Critically high 0.00-0.03 [facility] Comment on above: Performed By: #### C BC ####[facility] Begulsyqtt[address] [place], [place] [address]Dr. Tishrowan Frazier IG % 0.5 % Normal 0.0-0.5 [facility] Comment on above: Performed By: #### C BC ####[facility] Qidxmomgtc24[address] [place], [place] [address]Dr. Chrissy Frazier LYMPH # 2.4 103/ul Normal 1.2-3.8 [facility] Comment on above: Performed By: #### C BC ####[facility] Dusttovhwn8199 [place] [id number]. Chrissy Frazier Lymphocytes/100 WBC (Bld) 25.5 % Normal 20.5-60.0 [facility] Comment on above: Performed By: #### C BC ####[facility] Kdchnkpjna8759 [place] [id number]. Chrissy Frazier MANUAL DIFF REQ NO Normal [facility] Comment on above: Performed By: #### C BC ####[facility] Xjmgyvkbsp2698 [place] [id number]. Chrissy Frazier MCH (RBC) [Entitic mass] 28.5 pg Normal 25.9-34.0 [facility] Comment on above: Performed By: #### C BC ####[facility] Psxpzrpdkb6237 [place] [id number]. Chrissy Frazier MCHC (RBC) [Mass/Vol] 33.4 g/dL Normal 29.9-35.2 [facility] Comment on above: Performed By: #### C BC ####[facility] Ovnkpiueob7886 [place] [id number]. Chrissy Frazier MCV (RBC) [Entitic vol] 85.3 fL Normal 80.0-94.0 [facility] Comment on above: Performed By: #### C BC ####[facility] Iuudymjtwl0113 [place] [id number]. Chrissy Frazier MONO # 0.7 103/ul Normal 0.3-0.8 [facility] Comment on above: Performed By: #### C BC ####[facility] Bjvtqtcapq0604 [place] [id number]. Chrissy Frazier Monocytes/100 WBC (Bld) 7.8 % Normal 1.7-12.0 [facility] Comment on above: Performed By: #### C BC ####[facility] Lauwctxdfs0391 [place] [id number] Frazier NEUT # 5.8 103/ul Normal 1.4-6.5 [facility] Comment on above: Performed By: #### C BC ####[facility] Qiblpmzoda8165 [place] [id number]. Chrissy Frazier Neutrophils/100 WBC (Bld) 62.8 % Normal 43.0-75.0 [facility] Comment on above: Performed By: #### C BC ####[facility] Motkpikmbe3265 [place] [id number]. Chrissy Frazier Platelet mean volume (Bld) [Entitic vol] 10.8 fL Normal 9.5-13.5 [facility] Comment on above: Performed By: #### C BC ####[facility] Shxbxqlhxe5645 [place] [id number]. Chrissy Frazier PLT 310 103/ul Normal 150-450 [facility] Comment on above: Performed By: #### C BC ####[facility] Rgkbosapqv2436 [place] [id number]. Chrissy Frazier RBC 5.02 106/ul Normal 4.70-6.10 [facility] Comment on above: Performed By: #### C BC ####[facility] Wgswaetkou8035 [place] [id number]. Chrissy Frazier WBC 9.3 103/ul Normal 4.0-11.0 [facility] Comment on above: Performed By: #### C BC ####[facility] Ropsglmjuf2196 [place] [id number]. Chrissy Frazier CULTURE URINEon 07-07-2022 CULTURE URINE Culture Observations : NO GROWTH. Normal [facility] Comment on above: Performed By: #### U RCX ####[facility] Fdoiidstin6371 [place] [id number]. Chrissy Freddie DRUG SCREEN RAPID (URINE)on 07-07-2022 AMP Negative Normal NEGATIVE [facility] Comment on above: Performed By: #### D RUGRPD ####[facility] Jqsadodikt4869 [place] [id number]. Chrissy Frazier BAR Negative Normal NEGATIVE [facility] Comment on above: Performed By: #### D RUGRPD ####[facility] Jwrtftezze[address] [place], [place] [address]Dr. Chrissy Frazier BUP Negative Normal NEGATIVE [facility] Comment on above: Performed By: #### D RUGRPD ####[facility] Lqjmyipzhz[address] [place], [place] [address]Dr. Chrissy Frazier BZO Positive Abnormal NEGATIVE [facility] Comment on above: Performed By: #### D RUGRPD ####[facility] Uprssiinjn[address] [place], [place] [address]Dr. Chrissy Frazier LAUREN Negative Normal NEGATIVE [facility] Comment on above: Performed By: #### D RUGRPD ####[facility] Bxphnqiwen5[address] [place], [place] [address]Dr. Chrissy Frazier CUT-OFFS SEE BELOW Normal [facility] Comment on above: Result Comment: [...] 300 ng/mL Performed By: #### D RUGRPD ####[facility] [id number] [address] [place], [place] [address]Dr. Chrisys Frazier DRUG CUT HEADER DRUG CLASS TEST SYSTEM CUT-OFF CONCENTRATIONS ARE FOLLOWS: Normal [facility] Comment on above: Performed By: #### D RUGRPD ####[facility] Uanxlajvpt[address] [place], [place] [address]Dr. Chrissy Frazier mAMP Negative Normal NEGATIVE [facility] Comment on above: Performed By: #### D RUGRPD ####[facility] Jneiczfnhp[address] [place], [place] [address]Dr. Chrissy Frazier MTD Negative Normal NEGATIVE [facility] Comment on above: Performed By: #### D RUGRPD ####[facility] Oeihjeafnq9465 [place] [address]Dr. Chrissy Frazier OPI Negative Normal NEGATIVE [facility] Comment on above: Performed By: #### D RUGRPD ####[facility] Xtlcpzatpe8732 [place] [id number]. Chrissy Frazier OXY Negative Normal NEGATIVE [facility] Comment on above: Performed By: #### D RUGRPD ####[facility] Yfxyrsntgr7324 [place] [address]Dr. Chrissy Frazier PCP Negative Normal NEGATIVE [facility] Comment on above: Performed By: #### D RUGRPD ####[facility] Yyccrhdcui3447 [place] [address]Dr. Chrissy Frazier PPX Negative Normal NEGATIVE [facility] Comment on above: Performed By: #### D RUGRPD ####[facility] Asjdosrvlv5389 [place] [address]Dr. Chrissy Frazier TCA Positive Abnormal NEGATIVE [facility] Comment on above: Performed By: #### D RUGRPD ####[facility] Ulwmmnbcqb8633 [place] [address]Dr. Chrissy Frazier THC Positive Abnormal NEGATIVE [facility] Comment on above: Performed By: #### D RUGRPD ####[facility] Vjhyisothb4751 [place] [address]Dr. Chrissy Freddie LIPASEon 07-07-2022 Lipase [Catalytic activity/Vol] 118.0 U/L Normal 73.0-393.0 [facility] Comment on above: Performed By: #### L IPA ####[facility] Kshqlufnxr[address] [place], [place] [address]Dr. Chrissy Frazier Lipase [Catalytic activity/Vol] 114.0 U/L Normal 73.0-393.0 [facility] Comment on above: Performed By: #### C MP, TERRENCE, BNP, LIPA ####[facility] Qltptffggm5891 [place] [address]Dr. Chrissy Frazier PROF 14(COMP METB)on 08-17-2 022 Albumin [Mass/Vol] 3.4 g/dL Normal 3.4-5.0 [facility] Comment on above: Performed By: #### C MP, TERRENCE, BNP, LIPA ####[facility] Mnygkjbehj2803 [place] [address]Dr. Chrissy Frazier Albumin/Globulin [Mass ratio] 1.1 {ratio} Normal [facility] Comment on above: Performed By: #### C MP, TERRENCE, BNP, LIPA ####[facility] Tpopcltnlx5422 [place] [address]Dr. Chrissy Frazier ALP [Catalytic activity/Vol] 68 U/L Normal 46-116 [facility] Comment on above: Performed By: #### C MP, TERRENCE, BNP, LIPA ####[facility] Wyspprwchb0781 [place] [address]Dr. Chrissy Frazier ALT [Catalytic activity/Vol] 93 U/L Critically high 16-63 [facility] Comment on above: Performed By: #### C MP, TERRENCE, BNP, LIPA ####[facility] Kvujtecejd7572 [place] [address]Dr. Chrissy Frazier Anion gap [Moles/Vol] 14.4 mmol/L Normal [facility] Comment on above: Performed By: #### C MP, TERRENCE, BNP, LIPA ####[facility] Dcxydceate0855 [place] [address]Dr. Chrissy Frazier AST [Catalytic activity/Vol] 33 U/L Normal 15-37 [facility] Comment on above: Performed By: #### C MP, TERRENCE, BNP, LIPA ####[facility] Nvhvvnbdfd1124 [place] [address]Dr. Chrissy Frazier Bilirubin [Mass/Vol] 0.9 mg/dL Normal 0.2-1.0 [facility] Comment on above: Performed By: #### C MP, TERRENCE, BNP, LIPA ####[facility] Puvlxgrzyu0254 [place] [address]Dr. Chrissy Frazier Calcium [Mass/Vol] 8.2 mg/dL Critically low 8.5-10.1 [facility] Comment on above: Performed By: #### C MP, TERRENCE, BNP, LIPA ####[facility] Oigczqlpzf4245 [place] [address]Dr. Chrissy Frazier Chloride [Moles/Vol] 103 mmol/L Normal 98-107 [facility] Comment on above: Performed By: #### C MP, TERRENCE, BNP, LIPA ####[facility] Mfgjnjkkmu1713 [place] [address]Dr. Chrissy Frazier CO2 [Moles/Vol] 22.9 mmol/L Normal 21.0-32.0 [facility] Comment on above: Performed By: #### C MP, TERRENCE, BNP, LIPA ####[facility] Hisnndtxpg4601 [place] [address]Dr. Chrissy Frazier Creatinine [Mass/Vol] 1.07 mg/dL Normal 0.70-1.30 [facility] Comment on above: Performed By: #### C MP, TERRENCE, BNP, LIPA ####[facility] Dwkdlcxego00[address] [place], [place] [address]Dr. Chrissy Frazier EGFR-AF [place] >60 Normal >=60 [facility] Comment on above: Performed By: #### C MP, TERRENCE, BNP, LIPA ####[facility] Zeibevxwzu30[address] [place], [place] [address]Dr. Chrissy Frazier EGFR-NON AF [place] >60 Normal >=60 [facility] Comment on above: Performed By: #### C MP, TERRENCE, BNP, LIPA ####[facility] Bmdkdfxiqz0369 [place] [address]Dr. Chrissy Frazier Globulin (S) [Mass/Vol] 3.2 g/dL Normal [facility] Comment on above: Performed By: #### C MP, TERRENCE, BNP, LIPA ####[facility] Qhjjgnlkze5895 [place] [address]Dr. Chrissy Frazier Glucose [Mass/Vol] 96 mg/dL Normal 74-106 [facility] Comment on above: Performed By: #### C MP, TERRENCE, BNP, LIPA ####[facility] Mkqeixylue3415 [place] [address]Dr. Chrissy Frazier Potassium [Moles/Vol] 3.3 mmol/L Critically low 3.5-5.1 [facility] Comment on above: Performed By: #### C MP, TERRENCE, BNP, LIPA ####[facility] Sszuxymevv9882 [place] [address]Dr. Chrissy Frazier Protein [Mass/Vol] 6.6 g/dL Normal 6.4-8.2 [facility] Comment on above: Performed By: #### C MP, TERRENCE, BNP, LIPA ####[facility] Ukodzhdika9532 [place] [address]Dr. Chrissy Frazier Sodium [Moles/Vol] 137 mmol/L Normal 136-145 [facility] Comment on above: Performed By: #### C MP, TERRENCE, BNP, LIPA ####[facility] Ukrbtedrla7616 [place] [address]Dr. Chrissy Frazier Urea nitrogen [Mass/Vol] 13.0 mg/dL Normal 7.0-18.0 [facility] Comment on above: Performed By: #### C MP, TERRENCE, BNP, LIPA ####[facility] Tdulydjucr018[address] [place], [place] [address]Dr. Chrissy Frazier Urea nitrogen/Creatinine [Mass ratio] 12.1 mg/mg Normal [facility] Comment on above: Performed By: #### C MP, TERRENCE, BNP, LIPA ####[facility] Iqzfupwmpu4275 [place] [address]Dr. Chrissy Frazier UA RANDOM W/MICROSCOPICon BACTERIA TRACE Abnormal NONE SEEN [facility] Comment on above: Performed By: #### U AMIC ####[facility] Vbpclevrfg[address] [place], [place] [address]Dr. Chrissy Frazier Bilirubin Ql (U) Negative Normal NEGATIVE [facility] Comment on above: Performed By: #### U AMIC ####[facility] Ukbrvenzru6844[address] [place], [place] [address]Dr. Chrissy Frazier CAST NONE SEEN Normal NONE SEEN [facility] Comment on above: Performed By: #### U AMIC ####[facility] Plhhomqxuf8281 [place] [address]Dr. Chrissy Frazier Clarity (U) CLEAR Normal CLEAR [facility] Comment on above: Performed By: #### U AMIC ####[facility] Xcvavsgadn9598 [place] [address]Dr. Chrissy Frazier Color (U) YELLOW Normal YELLOW [facility] Comment on above: Performed By: #### U AMIC ####[facility] Ngjccsncca4652 [place] [address]Dr. Chrissy Frazier Crystals LM Nom (Urine sed) SEEN Abnormal NONE SEEN [facility] Comment on above: Performed By: #### U AMIC ####[facility] Zbkelhqgdq52[address] [place], [place] [address]Dr. Chrissy Frazier Epithelial cells LM Ql (Urine sed) RARE Normal NONE SEEN /RARE [facility] Comment on above: Performed By: #### U AMIC ####[facility] Xjzvaenvbw252[address] [place], [place] [address]Dr. Chrissy Frazier Glucose Ql (U) Negative Normal NEGATIVE [facility] Comment on above: Performed By: #### U AMIC ####[facility] Cynyacenhm[address] [place], [place] [address]Dr. Chrissy Frazier Hemoglobin Ql (U) Negative Normal NEGATIVE [facility] Comment on above: Performed By: #### U AMIC ####[facility] Brlyfzrueg20[address] [place], [place] [address]Dr. Chrissy Frazier Ketones Ql (U) 15 mg/dl Abnormal NEGATIVE [facility] Comment on above: Performed By: #### U AMIC ####[facility] Rhsbesakhs7547 [place] [address]Dr. Chrissy Frazier LEUKOCYTES Negative Normal NEGATIVE [facility] Comment on above: Performed By: #### U AMIC ####[facility] Gbfyuiopcn79[address] [place], [place] [address]Dr. Tishlan Frazier MUCOUS NONE SEEN Normal NONE SEEN [facility] Comment on above: Performed By: #### U AMIC ####[facility] Eosdngtbuc3[address] [place], [place] [address]Dr. Chrissy Frazier Nitrite Ql (U) Negative Normal NEGATIVE [facility] Comment on above: Performed By: #### U AMIC ####[facility] Bnxlanjsgp8871 [place] [address]Dr. Chrissy Frazier pH (U) 6.0 [pH] Normal 5-9 [facility] Comment on above: Performed By: #### U AMIC ####[facility] Qdrhqhawtw3133 [place] [address]Dr. Chrissy Frazier RBC 0-2 Normal 0-2 [facility] Comment on above: Performed By: #### U AMIC ####[facility] Ggtkhmrzmn7171 [place] [address]Dr. Chrissy Frazier SPEC GRAVITY 1.015 Normal 1.005-<=1.025 [facility] Comment on above: Performed By: #### U AMIC ####[facility] Fweipuhwnb0054 [place] [address]Dr. Chrissy Frazier UA PROTEIN Negative Normal NEGATIVE/ TRACE [facility] Comment on above: Performed By: #### U AMIC ####[facility] Obugxsyyix8344 [place] [address]Dr. Chrissy Frazier URIC ACID CRYSTALS RARE Normal [facility] Comment on above: Performed By: #### U AMIC ####[facility] Rcdodlmxps0583 [place] [address]Dr. Chrissy Frazier Urobilinogen Qn (U) 0.2 {Estrellita'U}/dL Normal 0.2 - 1. 0 [facility] Comment on above: Performed By: #### U AMIC ####[facility] Fihcxyfaqm4279 [place] [address]Dr. Tishrowan Frazier WBC 0-2 Abnormal NONE SEEN [facility] Comment on above: Performed By: #### U AMIC ####[facility] Umxkdrpwvo6521 [place] [address]Dr. Chrissy Frazier AMYLASEon 07-06-2022 Amylase [Catalytic activity/Vol] 37 U/L Normal 25-115 [facility] Comment on above: Performed By: #### C MP, LIPA, TERRENCE ####[facility] Wnydkwtqfk1173 [place] [id number]. Chrissy Frazier CBC AUTO DIFFon 07-06-2022 BASO # 0.1 103/ul Normal 0.0-0.1 [facility] Comment on above: Performed By: #### C BC ####[facility] Uoypqvmafu3688 [place] [address]Dr. Chrissy Frazier Basophils/100 WBC (Bld) 0.4 % Normal 0.2-2.0 [facility] Comment on above: Performed By: #### C BC ####[facility] Vjiswpiaaf709[address] [place], [place] [address]Dr. Tishrowan Frazier EO # 0.1 103/ul Normal 0.0-0.7 [facility] Comment on above: Performed By: #### C BC ####[facility] Wtfmoqfqxv613[address] [place], [place] [address]Dr. Chrissy Frazier Eosinophils/100 WBC (Bld) 0.5 % Critically low 0.9-7.0 [facility] Comment on above: Performed By: #### C BC ####[facility] Jwqomqkwhg[address] [place], [place] [address]Dr. Chrissy Frazier Erythrocyte distribution width (RBC) [Ratio] 13.6 % Normal 11.0-15.0 [facility] Comment on above: Performed By: #### C BC ####[facility] Jpcotcaqlp3243[address] [place], [place] [address]Dr. Tishrowan Frazier Hematocrit (Bld) [Volume fraction] 47.9 % Normal 42.0-54.0 [facility] Comment on above: Performed By: #### C BC ####[facility] Xblmtzoiih4014[address] [place], [place] [address]Dr. Chrissy Frazier Hemoglobin (Bld) [Mass/Vol] 16.4 g/dL Normal 14.0-18.0 [facility] Comment on above: Performed By: #### C BC ####[facility] Mebavykqao813[address] [place], [place] [address]Dr. Chrissy Frazier IG # 0.09 10e3/ul Critically high 0.00-0.03 [facility] Comment on above: Performed By: #### C BC ####[facility] Bcrizwaljv6881 [place] [address]DrNancy Frazier IG % 0.6 % Critically high 0.0-0.5 [facility] Comment on above: Performed By: #### C BC ####[facility] Iagtinfbhl6354 [place] [address]DrNancy Frazier LYMPH # 2.5 103/ul Normal 1.2-3.8 [facility] Comment on above: Performed By: #### C BC ####[facility] Kvxebaemcg716[address] [place], [place] [address]DrNancy Frazier Lymphocytes/100 WBC (Bld) 16.7 % Critically low 20.5-60.0 [facility] Comment on above: Performed By: #### C BC ####[facility] Dkdavbedyt6313[address] [place], [place] [address]DrNancy Frazier MANUAL DIFF REQ NO Normal [facility] Comment on above: Performed By: #### C BC ####[facility] Ackdpcjuuz6147 [place] [address]DrNancy Chrissy Freddie MCH (RBC) [Entitic mass] 28.1 pg Normal 25.9-34.0 [facility] Comment on above: Performed By: #### C BC ####[facility] Mziumpyqna10[address] [place], [place] [address]Dr. Chrissy Frazier MCHC (RBC) [Mass/Vol] 34.2 g/dL Normal 29.9-35.2 [facility] Comment on above: Performed By: #### C BC ####[facility] Mpwcoqpvwx0816[address] [place], [place] [address]DrNancy Frazier MCV (RBC) [Entitic vol] 82.2 fL Normal 80.0-94.0 [facility] Comment on above: Performed By: #### C BC ####[facility] Rakpwrnhyw48[address] [place], [place] [address]DrNancy Frazier MONO # 1.0 103/ul Critically high 0.3-0.8 [facility] Comment on above: Performed By: #### C BC ####[facility] Fksdibblvt6042 [place] [address]Dr. Chrissy Frazier Monocytes/100 WBC (Bld) 6.7 % Normal 1.7-12.0 [facility] Comment on above: Performed By: #### C BC ####[facility] Cyrrbnvdlx5129 [place] [id number]. Chrissy Frazier NEUT # 11.3 103/ul Critically high 1.4-6.5 [facility] Comment on above: Performed By: #### C BC ####[facility] Azhexckrtm2938 [place] [address]Dr. Chrissy Frazier Neutrophils/100 WBC (Bld) 75.1 % Critically high 43.0-75.0 [facility] Comment on above: Performed By: #### C BC ####[facility] Bjtexfhnsg450[address] [place], [place] [address]Dr. Chrissy Frazier Platelet mean volume (Bld) [Entitic vol] 10.6 fL Normal 9.5-13.5 [facility] Comment on above: Performed By: #### C BC ####[facility] Hcvwfdgcto18[address] [place], [place] [address]Dr. Chrissy Frazier PLT 416 103/ul Normal 150-450 [facility] Comment on above: Performed By: #### C BC ####[facility] Amxdjkzwqp1516 [place] [address]Dr. Chrissy Frazier RBC 5.83 106/ul Normal 4.70-6.10 [facility] Comment on above: Performed By: #### C BC ####[facility] Cqpurckdgz9682 [place] [id number]. Chrissy Frazier WBC 15.0 103/ul Critically high 4.0-11.0 [facility] Comment on above: Performed By: #### C BC ####[facility] Rifgwbcozx4460 [place] [address]Dr. Chrissy Freddie Covid-19 PCR ([facility])on 06-21 SARS-CoV-2 (COVID-19) RNA RHIANNON+probe Ql (Unsp spec) Not detected Normal NOT DETECTED [facility] Comment on above: Result Comment: [...] for this test is supported by the Debit Agent of Health and Human Service's declaration that [...] be used). Performed By: #### C VDTBH ####[facility] Qvmfuceijq024[address] [place], [place] [address]Dr. Chrissy Frazier LIPASEon 07-06-2022 Lipase [Catalytic activity/Vol] 130.0 U/L Normal 73.0-393.0 [facility] Comment on above: Performed By: #### C MANA LIPA, TERRENCE ####[facility] Tdtzmnufcg11[address] [place], [place] [address]DrNancy Frazier PROF 14(COMP METB)on 022 Albumin [Mass/Vol] 4.4 g/dL Normal 3.4-5.0 [facility] Comment on above: Performed By: #### C MP LIPA, TERRENCE ####[facility] Lqgzegxrxm639[address] [place], [place] [address]DrNancy Frazier Albumin/Globulin [Mass ratio] 1.1 {ratio} Normal [facility] Comment on above: Performed By: #### C MP, LIPA, TERRENCE ####[facility] Lcqegvlcmx439[address] [place], [place] [address]DrNancy Frazier ALP [Catalytic activity/Vol] 83 U/L Normal 46-116 [facility] Comment on above: Performed By: #### C OSWALD ADAIR, TERRENCE ####[facility] Fnwghspkpj0645 [place] [address]Dr. Chrissy Frazier ALT [Catalytic activity/Vol] 107 U/L Critically high 16-63 [facility] Comment on above: Performed By: #### C OSWALD ADAIR, TERRENCE ####[facility] Juineqdxge5011 [place] [address]Dr. Chrissy Frazier Anion gap [Moles/Vol] 20.5 mmol/L Normal [facility] Comment on above: Performed By: #### C OSWALD ADAIR, TERRENCE ####[facility] Twrcmzpxcs9230[address] [place], [place] [address]Dr. Chrissy Frazier AST [Catalytic activity/Vol] 46 U/L Critically high 15-37 [facility] Comment on above: Performed By: #### C OSWALD ADAIR, TERRENCE ####[facility] Huduxzfcjx8658[address] [place], [place] [address]Dr. Chrissy Frazier Bilirubin [Mass/Vol] 1.2 mg/dL Critically high 0.2-1.0 [facility] Comment on above: Performed By: #### C OSWALD ADAIR, TERRENCE ####[facility] Iscgkphfhk4[address] [place], [place] [address]Dr. Chrissy Frazier Calcium [Mass/Vol] 9.1 mg/dL Normal 8.5-10.1 [facility] Comment on above: Performed By: #### C OSWALD ADAIR, TERRENCE ####[facility] Fhpgbcullr90[address] [place], [place] [address]Dr. Chrissy Frazier Chloride [Moles/Vol] 100 mmol/L Normal 98-107 [facility] Comment on above: Performed By: #### C TESSA ADAIRA, TERRENCE ####[facility] Thjiiezazc423[address] [place], [place] [address]Dr. Chrissy Frazier CO2 [Moles/Vol] 18.6 mmol/L Critically low 21.0-32.0 [facility] Comment on above: Performed By: #### C MANA LIPA, TERRENCE ####[facility] Jbdpalushg1575 [place] [address]Dr. Chrissy Frazier Creatinine [Mass/Vol] 1.44 mg/dL Critically high 0.70-1.30 [facility] Comment on above: Performed By: #### C MP, LIPA, TERRENCE ####[facility] Smpefdojux4249 [place] [address]Dr. Chrissy Frazier EGFR-AF [place] >60 Normal >=60 [facility] Comment on above: Performed By: #### C MP, LIPA, TERRENCE ####[facility] Cjphhvaoin2038 [place] [address]Dr. Chrissy Frazier EGFR-NON AF [place] 57 mL/min/1.73m2 Critically low >=60 [facility] Comment on above: Performed By: #### C MP, LIPA, TERRENCE ####[facility] Wrlstwxmdr6315 [place] [address]Dr. Chrissy Frazier Globulin (S) [Mass/Vol] 4.0 g/dL Normal [facility] Comment on above: Performed By: #### C MP, LIPA, TERRENCE ####[facility] Sgszdgsqlk99[address] [place], [place] [address]Dr. Chrissy Frazier Glucose [Mass/Vol] 117 mg/dL Critically high 74-106 [facility] Comment on above: Performed By: #### C MP, LIPA, TERRENCE ####[facility] Bnzhdnyymi0121 [place] [address]Dr. Chrissy Frazier Potassium [Moles/Vol] 3.1 mmol/L Critically low 3.5-5.1 [facility] Comment on above: Performed By: #### C MP, LIPA, TERRENCE ####[facility] Vgerudywke9043 [place] [address]Dr. Chrissy Frazier Protein [Mass/Vol] 8.4 g/dL Critically high 6.4-8.2 [facility] Comment on above: Performed By: #### C MP, LIPA, TERRENCE ####[facility] Qgzoakjdzo0134 [place] [address]Dr. Chrissy Frazier Sodium [Moles/Vol] 136 mmol/L Normal 136-145 [facility] Comment on above: Performed By: #### C OSWALD ADAIR AMY ####[facility] Delvagigfj[address] [place], [place] [address]Dr. Chrissy Frazier Urea nitrogen [Mass/Vol] 15.0 mg/dL Normal 7.0-18.0 [facility] Comment on above: Performed By: #### C OSWALD ADAIR AMY ####[facility] Zinwiitbsn38[address] [place], [place] [address]Dr. Chrissy Freddie Urea nitrogen/Creatinine [Mass ratio] 10.4 mg/mg Normal [facility] Comment on above: Performed By: #### C OSWALD ADAIR AMY ####[facility] Vgykdklpuz8[address] [place], [place] [address]Dr. Chrissy Freddie CBC AUTO DIFFon 07-05-2022 BASO # 0.0 103/ul Normal 0.0-0.1 [facility] Comment on above: Performed By: #### C BC ####[facility] Zydxmjfwjz40[address] [place], [place] [address]Dr. Tishrowan Frazier Basophils/100 WBC (Bld) 0.3 % Normal 0.2-2.0 [facility] Comment on above: Performed By: #### C BC ####[facility] Suehbduxez0[address] [place], [place] [address]Dr. Chrissy Freddie EO # 0.2 103/ul Normal 0.0-0.7 [facility] Comment on above: Performed By: #### C BC ####[facility] Xvxebivpty7[address] [place], [place] [address]Dr. Tishrowan Frazier Eosinophils/100 WBC (Bld) 1.5 % Normal 0.9-7.0 [facility] Comment on above: Performed By: #### C BC ####[facility] Ntlnjmbaaq[address] [place], [place] [address]Dr. Chrissy Frazier Erythrocyte distribution width (RBC) [Ratio] 13.9 % Normal 11.0-15.0 [facility] Comment on above: Performed By: #### C BC ####[facility] Tzzjxshlgw7256 [place] [address]Dr. Chrissy Frazier Hematocrit (Bld) [Volume fraction] 44.5 % Normal 42.0-54.0 [facility] Comment on above: Performed By: #### C BC ####[facility] Bcnzyseyne5524 [place] [address]Dr. Chrissy Rfazier Hemoglobin (Bld) [Mass/Vol] 14.8 g/dL Normal 14.0-18.0 [facility] Comment on above: Performed By: #### C BC ####[facility] Zckwhnotne2077 [place] [address]Dr. Chrissy Freddie IG # 0.05 10e3/ul Critically high 0.00-0.03 [facility] Comment on above: Performed By: #### C BC ####[facility] Culystjinr7948 [place] [address]Dr. Tishrowan Frazier IG % 0.4 % Normal 0.0-0.5 [facility] Comment on above: Performed By: #### C BC ####[facility] Bjhpnwnqlf8066 [place] [address]Dr. Chrissy Freddie LYMPH # 3.3 103/ul Normal 1.2-3.8 [facility] Comment on above: Performed By: #### C BC ####[facility] Dfetzbtlio5130 [place] [address]Dr. Chrissy Freddie Lymphocytes/100 WBC (Bld) 29.1 % Normal 20.5-60.0 [facility] Comment on above: Performed By: #### C BC ####[facility] Vzcbkqmgny3558 [place] [address]Dr. Chrissy Freddie MANUAL DIFF REQ NO Normal [facility] Comment on above: Performed By: #### C BC ####[facility] Wzjuseihma8032 [place] [address]Dr. Chrissy Freddie MCH (RBC) [Entitic mass] 28.2 pg Normal 25.9-34.0 [facility] Comment on above: Performed By: #### C BC ####[facility] Ftcpleabms[address] [place], [place] [address]Dr. Chrissy Frazier MCHC (RBC) [Mass/Vol] 33.3 g/dL Normal 29.9-35.2 [facility] Comment on above: Performed By: #### C BC ####[facility] Jbdrevtndi3420 [place] [id number]. Chrissy Frazier MCV (RBC) [Entitic vol] 84.9 fL Normal 80.0-94.0 [facility] Comment on above: Performed By: #### C BC ####[facility] Ofrxvbbpme3678 [place] [id number]. Chrissy Freddie MONO # 0.6 103/ul Normal 0.3-0.8 [facility] Comment on above: Performed By: #### C BC ####[facility] Tdfyphokgl2867 [place] [id number]. Tishrowan Frazier Monocytes/100 WBC (Bld) 5.4 % Normal 1.7-12.0 [facility] Comment on above: Performed By: #### C BC ####[facility] Bfwfxnafve3912 [place] [id number]. Chrissy Freddie NEUT # 7.1 103/ul Critically high 1.4-6.5 [facility] Comment on above: Performed By: #### C BC ####[facility] Eaqarkgdkp1199 [place] [id number]. Chrissy Frazier Neutrophils/100 WBC (Bld) 63.3 % Normal 43.0-75.0 [facility] Comment on above: Performed By: #### C BC ####[facility] Apfxempeyu1013 [place] [id number]. Chrissy Frzaier Platelet mean volume (Bld) [Entitic vol] 9.9 fL Normal 9.5-13.5 [facility] Comment on above: Performed By: #### C BC ####[facility] Jepwpdkhpd9748 [place] [id number]. Chrissy Freddie PLT 339 103/ul Normal 150-450 [facility] Comment on above: Performed By: #### C BC ####[facility] Mpozlvfenb8398 [place] [address]Dr. Chrissy Frazier RBC 5.24 106/ul Normal 4.70-6.10 [facility] Comment on above: Performed By: #### C BC ####[facility] Jssakilgcz6727 [place] [address]Dr. Chrissy Frazier WBC 11.2 103/ul Critically high 4.0-11.0 [facility] Comment on above: Performed By: #### C BC ####[facility] Zbvtmuxbyq45[address] [place], [place] [address]Dr. Chrissy Frazier PROF 14(COMP METB)on 022 Albumin [Mass/Vol] 3.8 g/dL Normal 3.4-5.0 [facility] Comment on above: Performed By: #### C MP ####[facility] Vhingrnsqd9115[address] [place], [place] [address]Dr. Chrissy Frazier Albumin/Globulin [Mass ratio] 1.1 {ratio} Normal [facility] Comment on above: Performed By: #### C MP ####[facility] Sicynrzecx6135[address] [place], [place] [address]Dr. Chrissy Frazier ALP [Catalytic activity/Vol] 67 U/L Normal 46-116 [facility] Comment on above: Performed By: #### C MP ####[facility] Ligmomvfqy83[address] [place], [place] [address]Dr. Chrissy Frazier ALT [Catalytic activity/Vol] 75 U/L Critically high 16-63 [facility] Comment on above: Performed By: #### C MP ####[facility] Ttpggclrzb0589[address] [place], [place] [address]Dr. Chrissy Frazier Anion gap [Moles/Vol] 14.3 mmol/L Normal [facility] Comment on above: Performed By: #### C MP ####[facility] Bechriofnx8389[address] [place], [place] [address]Dr. Chrissy Frazier AST [Catalytic activity/Vol] 40 U/L Critically high 15-37 [facility] Comment on above: Performed By: #### C MP ####[facility] Aitcmbfwjp980[address] [place], [place] [address]Dr. Chrissy Frazier Bilirubin [Mass/Vol] 0.9 mg/dL Normal 0.2-1.0 [facility] Comment on above: Performed By: #### C MP ####[facility] Rflumskprx[address] [place], [place] [address]Dr. Chrissy Frazier Calcium [Mass/Vol] 8.4 mg/dL Critically low 8.5-10.1 [facility] Comment on above: Performed By: #### C MP ####[facility] Ervqikdfio0834[address] [place], [place] [address]Dr. Chrissy Frazier Chloride [Moles/Vol] 104 mmol/L Normal 98-107 [facility] Comment on above: Performed By: #### C MP ####[facility] Vvjavxoywy5950[address] [place], [place] [address]Dr. Chrissy Frazier CO2 [Moles/Vol] 24.1 mmol/L Normal 21.0-32.0 [facility] Comment on above: Performed By: #### C MP ####[facility] Seontinsob5801[address] [place], [place] [address]Dr. Chrissy Frazier Creatinine [Mass/Vol] 1.11 mg/dL Normal 0.70-1.30 [facility] Comment on above: Performed By: #### C MP ####[facility] Ifsesaweae0412[address] [place], [place] [address]Dr. Chrissy Frazier EGFR-AF [place] >60 Normal >=60 [facility] Comment on above: Performed By: #### C MP ####[facility] Zmvfxblpmu3294[address] [place], [place] [address]Dr. Chrissy Freddie EGFR-NON AF [place] >60 Normal >=60 [facility] Comment on above: Performed By: #### C MP ####[facility] Iuzjprygzm[address] [place], [place] [address]Dr. Chrissy Freddie Globulin (S) [Mass/Vol] 3.6 g/dL Normal [facility] Comment on above: Performed By: #### C MP ####[facility] Qicceyaydd6368[address] [place], [place] [address]Dr. Tishrowan Freddie Glucose [Mass/Vol] 89 mg/dL Normal 74-106 [facility] Comment on above: Performed By: #### C MP ####[facility] Ayfqocnuxa8474 [place] [address]Dr. Chrissy Frazier Potassium [Moles/Vol] 3.4 mmol/L Critically low 3.5-5.1 [facility] Comment on above: Performed By: #### C MP ####[facility] Gdmswpikog29[address] [place], [place] [address]Dr. Chrissy Frazier Protein [Mass/Vol] 7.4 g/dL Normal 6.4-8.2 [facility] Comment on above: Performed By: #### C MP ####[facility] Vfmobbriru2859[address] [place], [place] [address]Dr. Chrissy Frazier Sodium [Moles/Vol] 139 mmol/L Normal 136-145 [facility] Comment on above: Performed By: #### C MP ####[facility] Csgxyruxaa497[address] [place], [place] [address]Dr. Chrissy Frazier Urea nitrogen [Mass/Vol] 10.0 mg/dL Normal 7.0-18.0 [facility] Comment on above: Performed By: #### C MP ####[facility] Vvxihngyoj9227[address] [place], [place] [address]Dr. Chrissy Frazier Urea nitrogen/Creatinine [Mass ratio] 9.0 mg/mg Normal [facility] Comment on above: Performed By: #### C MP ####[facility] Feoqdyuqny[address] [place], [place] [address]Dr. Chrissy Frazier CBC AUTO DIFFon 07-04-2022 BASO # 0.0 103/ul Normal 0.0-0.1 [facility] Comment on above: Performed By: #### C BC ####[facility] Eeykglqzef350[address] [place], [place] [address]Dr. Chrissy Frazier Basophils/100 WBC (Bld) 0.2 % Normal 0.2-2.0 [facility] Comment on above: Performed By: #### C BC ####[facility] Sfkqnxcuvf0736[address] [place], [place] [address]Dr. Chrissy Frazier EO # 0.0 103/ul Normal 0.0-0.7 [facility] Comment on above: Performed By: #### C BC ####[facility] Flsmqgxtdw9493 [place] [address]Dr. Chrissy Frazier Eosinophils/100 WBC (Bld) 0.3 % Critically low 0.9-7.0 [facility] Comment on above: Performed By: #### C BC ####[facility] Jjauniothd7091 [place] [address]Dr. Chrissy Frazier Erythrocyte distribution width (RBC) [Ratio] 14.0 % Normal 11.0-15.0 [facility] Comment on above: Performed By: #### C BC ####[facility] Jprcohcsnq20[address] [place], [place] [address]Dr. Chrissy Frazier Hematocrit (Bld) [Volume fraction] 43.2 % Normal 42.0-54.0 [facility] Comment on above: Performed By: #### C BC ####[facility] Hakhkkfzzm80[address] [place], [place] [address]Dr. Chrissy Frazier Hemoglobin (Bld) [Mass/Vol] 14.6 g/dL Normal 14.0-18.0 [facility] Comment on above: Performed By: #### C BC ####[facility] Ylakxeehpj89[address] [place], [place] [address]Dr. Chrissy Frazier IG # 0.11 10e3/ul Critically high 0.00-0.03 [facility] Comment on above: Performed By: #### C BC ####[facility] Wfigjrylfg4844 [place] [address]Dr. Chrissy Frazier IG % 0.8 % Critically high 0.0-0.5 [facility] Comment on above: Performed By: #### C BC ####[facility] Fjhnpigjec[address] [place], [place] [address]Dr. Chrissy Frazier LYMPH # 2.6 103/ul Normal 1.2-3.8 [facility] Comment on above: Performed By: #### C BC ####[facility] Ofehxpjsjd8[address] [place], [place] [address]Dr. Chrissy Frazier Lymphocytes/100 WBC (Bld) 18.3 % Critically low 20.5-60.0 [facility] Comment on above: Performed By: #### C BC ####[facility] Jjadallcnr5635 [place] [address]Dr. Chrissy Frazier MANUAL DIFF REQ NO Normal [facility] Comment on above: Performed By: #### C BC ####[facility] Nfsvqvbijr8905 [place] [address]Dr. Chrissy Frazier MCH (RBC) [Entitic mass] 28.1 pg Normal 25.9-34.0 [facility] Comment on above: Performed By: #### C BC ####[facility] Nwvuthoatz1867[address] [place], [place] [address]Dr. Chrissy Frazier MCHC (RBC) [Mass/Vol] 33.8 g/dL Normal 29.9-35.2 [facility] Comment on above: Performed By: #### C BC ####[facility] Klxkvypcwj07[address] [place], [place] [address]Dr. Chrissy Frazier MCV (RBC) [Entitic vol] 83.2 fL Normal 80.0-94.0 [facility] Comment on above: Performed By: #### C BC ####[facility] Qkmxwnnwdz[address] [place], [place] [address]Dr. Chrissy Frazier MONO # 0.7 103/ul Normal 0.3-0.8 [facility] Comment on above: Performed By: #### C BC ####[facility] Rhgeckalym059[address] [place], [place] [address]Dr. Chrissy Frazier Monocytes/100 WBC (Bld) 5.3 % Normal 1.7-12.0 [facility] Comment on above: Performed By: #### C BC ####[facility] Fbmavvlsnj[address] [place], [place] [address]Dr. Chrissy Frazier NEUT # 10.5 103/ul Critically high 1.4-6.5 [facility] Comment on above: Performed By: #### C BC ####[facility] Secltecpvx57[address] [place], [place] [address]Dr. Tishrowan Freddie Neutrophils/100 WBC (Bld) 75.1 % Critically high 43.0-75.0 [facility] Comment on above: Performed By: #### C BC ####[facility] Kzxadxggux1436 [place] [address]Dr. Chrissy Frazier Platelet mean volume (Bld) [Entitic vol] 10.6 fL Normal 9.5-13.5 [facility] Comment on above: Performed By: #### C BC ####[facility] Sezbssqmoy8979 [place] [address]Dr. Chrissy Frazier PLT 309 103/ul Normal 150-450 [facility] Comment on above: Performed By: #### C BC ####[facility] Dlneafmcjh0882 [place] [address]Dr. Chrissy Frazier RBC 5.19 106/ul Normal 4.70-6.10 [facility] Comment on above: Performed By: #### C BC ####[facility] Soniastrgc6494 [place] [address]DrNancy Frazier WBC 14.0 103/ul Critically high 4.0-11.0 [facility] Comment on above: Performed By: #### C BC ####[facility] Qejdhbvdzi1899 [place] [address]DrNancy Frazier PROF 14(COMP METB)on 022 Albumin [Mass/Vol] 4.0 g/dL Normal 3.4-5.0 [facility] Comment on above: Performed By: #### C MP ####[facility] Kzngdljdsi6079 [place] [address]DrNancy Frazier Albumin/Globulin [Mass ratio] 1.1 {ratio} Normal [facility] Comment on above: Performed By: #### C MP ####[facility] Afdggpfvps9868 [place] [address]DrNancy Winstonrowan Freddie ALP [Catalytic activity/Vol] 67 U/L Normal 46-116 [facility] Comment on above: Performed By: #### C MP ####[facility] Jmudcwxqpl4086 [place] [address]Dr. Chrissy Freddie ALT [Catalytic activity/Vol] 40 U/L Normal 16-63 [facility] Comment on above: Performed By: #### C MP ####[facility] Daqcedcpzx9478 [place] [address]Dr. Tishrowan Freddie Anion gap [Moles/Vol] 17.7 mmol/L Normal [facility] Comment on above: Performed By: #### C MP ####[facility] Mcyqbwbhxi3041 [place] [address]Dr. Chrissy Freddie AST [Catalytic activity/Vol] 27 U/L Normal 15-37 [facility] Comment on above: Performed By: #### C MP ####[facility] Igifthhovp89[address] [place], [place] [address]Dr. Chrissy Frazier Bilirubin [Mass/Vol] 0.8 mg/dL Normal 0.2-1.0 [facility] Comment on above: Performed By: #### C MP ####[facility] Shvmkipveb7335[address] [place], [place] [address]Dr. Chrissy Frazier Calcium [Mass/Vol] 8.8 mg/dL Normal 8.5-10.1 [facility] Comment on above: Performed By: #### C MP ####[facility] Fnzhzcspsu[address] [place], [place] [address]Dr. Chrissy Frazier Chloride [Moles/Vol] 105 mmol/L Normal 98-107 [facility] Comment on above: Performed By: #### C MP ####[facility] Mmskfrdvao6540[address] [place], [place] [address]Dr. Chrissy Frazier CO2 [Moles/Vol] 16.5 mmol/L Critically low 21.0-32.0 [facility] Comment on above: Performed By: #### C MP ####[facility] Ecnejssowp6[address] [place], [place] [address]Dr. Chrissy Frazier Creatinine [Mass/Vol] 1.02 mg/dL Normal 0.70-1.30 [facility] Comment on above: Performed By: #### C MP ####[facility] Fvsypmrrnv43[address] [place], [place] [address]Dr. Chrissy Frazier EGFR-AF [place] >60 Normal >=60 [facility] Comment on above: Performed By: #### C MP ####[facility] Bcyzsatkhx8206 [place] [id number]. Chrissy Frazier EGFR-NON AF [place] >60 Normal >=60 [facility] Comment on above: Performed By: #### C MP ####[facility] Cbqhugvprl0446 [place] [id number]. Chrissy Frazier Globulin (S) [Mass/Vol] 3.7 g/dL Normal [facility] Comment on above: Performed By: #### C MP ####[facility] Osutyrivut3789 [place] [address]Dr. Chrissy Frazier Glucose [Mass/Vol] 106 mg/dL Normal 74-106 [facility] Comment on above: Performed By: #### C MP ####[facility] Jiauilnsoz4990 [place] [address]Dr. Chrissy Frazier Potassium [Moles/Vol] 3.2 mmol/L Critically low 3.5-5.1 [facility] Comment on above: Performed By: #### C MP ####[facility] Xrwotvfzur0[address] [place], [place] [address]Dr. Chrissy Frazier Protein [Mass/Vol] 7.7 g/dL Normal 6.4-8.2 [facility] Comment on above: Performed By: #### C MP ####[facility] Xapgcprzsp9132 [place] [address]Dr. Chrissy Frazier Sodium [Moles/Vol] 136 mmol/L Normal 136-145 [facility] Comment on above: Performed By: #### C MP ####[facility] Isodxijdpe[address] [place], [place] [id number]. Chrissy Frazier Urea nitrogen [Mass/Vol] 10.0 mg/dL Normal 7.0-18.0 [facility] Comment on above: Performed By: #### C MP ####[facility] Fnzbtltajo2815 [place] [id number]. Chrissy Frazier Urea nitrogen/Creatinine [Mass ratio] 9.8 mg/mg Normal [facility] Comment on above: Performed By: #### C MP ####[facility] Teesoxtzqa1540 [place] [address]Dr. Chrissy Frazier CBC AUTO DIFFon 07-03-2022 BASO # 0.1 103/ul Normal 0.0-0.1 [facility] Comment on above: Performed By: #### C BC ####[facility] Brdsgdsirv3734[address] [place], [place] [address]DrNancy Frazier Basophils/100 WBC (Bld) 0.5 % Normal 0.2-2.0 [facility] Comment on above: Performed By: #### C BC ####[facility] Xdoyprjlml6[address] [place], [place] [address]DrNancy Frazier EO # 0.1 103/ul Normal 0.0-0.7 [facility] Comment on above: Performed By: #### C BC ####[facility] Wbupyhnokn17[address] [place], [place] [address]Dr. Chrissy Frazier Eosinophils/100 WBC (Bld) 1.3 % Normal 0.9-7.0 [facility] Comment on above: Performed By: #### C BC ####[facility] Ldvojbgwlg8[address] [place], [place] [address]Dr. Chrissy Frazier Erythrocyte distribution width (RBC) [Ratio] 14.2 % Normal 11.0-15.0 [facility] Comment on above: Performed By: #### C BC ####[facility] Zvlinbects4668[address] [place], [place] [address]DrNancy Frazier Hematocrit (Bld) [Volume fraction] 41.7 % Critically low 42.0-54.0 [facility] Comment on above: Performed By: #### C BC ####[facility] Caitcagazs77[address] [place], [place] [address]DrNancy Frazier Hemoglobin (Bld) [Mass/Vol] 13.6 g/dL Critically low 14.0-18.0 [facility] Comment on above: Performed By: #### C BC ####[facility] Zzyjjaxaus364[address] [place], [place] [address]DrNancy Frazier IG # 0.04 10e3/ul Critically high 0.00-0.03 [facility] Comment on above: Performed By: #### C BC ####[facility] Zrsnootyal0788 [place] [address]DrNancy Frazier IG % 0.4 % Normal 0.0-0.5 [facility] Comment on above: Performed By: #### C BC ####[facility] Gjlzutjcuc0611 [place] [address]DrNancy Frazier LYMPH # 3.5 103/ul Normal 1.2-3.8 [facility] Comment on above: Performed By: #### C BC ####[facility] Ebsslijquz3801 [place] [address]DrNancy Frazier Lymphocytes/100 WBC (Bld) 33.5 % Normal 20.5-60.0 [facility] Comment on above: Performed By: #### C BC ####[facility] Qobygertdx0869 [place] [address]DrNancy Frazier MANUAL DIFF REQ NO Normal [facility] Comment on above: Performed By: #### C BC ####[facility] Cviiuhvwmh9434 [place] [address]DrNancy Frazier MCH (RBC) [Entitic mass] 27.9 pg Normal 25.9-34.0 [facility] Comment on above: Performed By: #### C BC ####[facility] Athytbuefl2990 [place] [address]DrNancy Frazier MCHC (RBC) [Mass/Vol] 32.6 g/dL Normal 29.9-35.2 [facility] Comment on above: Performed By: #### C BC ####[facility] Swnhopuclj4103 [place] [address]DrNancy Frazier MCV (RBC) [Entitic vol] 85.6 fL Normal 80.0-94.0 [facility] Comment on above: Performed By: #### C BC ####[facility] Ruawyxdqka7289[address] [place], [place] [address]DrNancy Frazier MONO # 0.7 103/ul Normal 0.3-0.8 [facility] Comment on above: Performed By: #### C BC ####[facility] Vscmilsire7438 [place] [address]Dr. Chrissy Frazier Monocytes/100 WBC (Bld) 6.5 % Normal 1.7-12.0 [facility] Comment on above: Performed By: #### C BC ####[facility] Zfswzcijfp2863 [place] [address]Dr. Chrissy Frazier NEUT # 6.1 103/ul Normal 1.4-6.5 [facility] Comment on above: Performed By: #### C BC ####[facility] Pjaigktmcv6151 [place] [address]Dr. Chrissy Frazier Neutrophils/100 WBC (Bld) 57.8 % Normal 43.0-75.0 [facility] Comment on above: Performed By: #### C BC ####[facility] Ifrtgvhdim7434[address] [place], [place] [address]Dr. Chrissy Frazier Platelet mean volume (Bld) [Entitic vol] 10.4 fL Normal 9.5-13.5 [facility] Comment on above: Performed By: #### C BC ####[facility] Fdhnlkvimo07[address] [place], [place] [address]Dr. Chrissy Frazier PLT 288 103/ul Normal 150-450 [facility] Comment on above: Performed By: #### C BC ####[facility] Kiqbxwuege384[address] [place], [place] [address]Dr. Chrissy Frazier RBC 4.87 106/ul Normal 4.70-6.10 [facility] Comment on above: Performed By: #### C BC ####[facility] [address]ksz[address] [place] [address]Dr. Chrissy Frazier WBC 10.5 103/ul Normal 4.0-11.0 [facility] Comment on above: Performed By: #### C BC ####[facility] Omqocabjac3557 [place] [address]DrNancy Tishrowan Frazier PROF 14(COMP METB)on 08-13-2 022 Albumin [Mass/Vol] 3.6 g/dL Normal 3.4-5.0 [facility] Comment on above: Performed By: #### C MP ####[facility] Ddzowkazvw8551 [place] [address]Dr. Tishrowan Freddie Albumin/Globulin [Mass ratio] 1.1 {ratio} Normal [facility] Comment on above: Performed By: #### C MP ####[facility] Omwucilazt37[address] [place] [address]Dr. Chrissy Frazier ALP [Catalytic activity/Vol] 58 U/L Normal 46-116 [facility] Comment on above: Performed By: #### C MP ####[facility] Oafwmuefow[address] [place], [place] [address]Dr. Chrissy Frazier ALT [Catalytic activity/Vol] 30 U/L Normal 16-63 [facility] Comment on above: Performed By: #### C MP ####[facility] Ufuejatggb[address] [place], [place] [address]Dr. Chrissy Frazier Anion gap [Moles/Vol] 14.5 mmol/L Normal [facility] Comment on above: Performed By: #### C MP ####[facility] Pumuphxnfx[address] [place], [place] [address]Dr. Chrissy Frazier AST [Catalytic activity/Vol] 17 U/L Normal 15-37 [facility] Comment on above: Performed By: #### C MP ####[facility] Qfpzyavwkz18[address] [place], [place] [address]Dr. Chrissy Frazier Bilirubin [Mass/Vol] 0.6 mg/dL Normal 0.2-1.0 [facility] Comment on above: Performed By: #### C MP ####[facility] Shaczbewib[address] [place] [address]Dr. Chrissy Frazier Calcium [Mass/Vol] 8.4 mg/dL Critically low 8.5-10.1 [facility] Comment on above: Performed By: #### C MP ####[facility] Ryrqhsgqii0068 [place] [address]Dr. Chrissy Frazier Chloride [Moles/Vol] 106 mmol/L Normal 98-107 [facility] Comment on above: Performed By: #### C MP ####[facility] Tgzhdgopuw8836 [place] [address]Dr. Chrissy Frazier CO2 [Moles/Vol] 22.6 mmol/L Normal 21.0-32.0 [facility] Comment on above: Performed By: #### C MP ####[facility] Dnupymovaa38[address] [place] [address]Dr. Chrissy Frazier Creatinine [Mass/Vol] 1.08 mg/dL Normal 0.70-1.30 [facility] Comment on above: Performed By: #### C MP ####[facility] Miqvarafks0706 [place] [address]Dr. Chrissy Frazier EGFR-AF [place]OU[place] >60 Normal >=60 [facility] Comment on above: Performed By: #### C MP ####[facility] Wrqpnlnips38[address] [place], [place] [address]Dr. Chrissy Freddie EGFR-NON AF [place] >60 Normal >=60 [facility] Comment on above: Performed By: #### C MP ####[facility] Nsrkmgqljl[address] [place], [place] [address]Dr. Chrissy Frazier Globulin (S) [Mass/Vol] 3.3 g/dL Normal [facility] Comment on above: Performed By: #### C MP ####[facility] Txcxujvlbc0484 [place] [address]Dr. Chrissy Frazier Glucose [Mass/Vol] 94 mg/dL Normal 74-106 [facility] Comment on above: Performed By: #### C MP ####[facility] Tuhztkrvxm5442 [place] [address]Dr. Chrissy Frazier Potassium [Moles/Vol] 3.1 mmol/L Critically low 3.5-5.1 [facility] Comment on above: Performed By: #### C MP ####[facility] Evglxnwawn0081 [place] [address]Dr. Chrissy Freddie Protein [Mass/Vol] 6.9 g/dL Normal 6.4-8.2 [facility] Comment on above: Performed By: #### C MP ####[facility] Musgarakdf2641 [place] [address]Dr. Chrissy Frazier Sodium [Moles/Vol] 140 mmol/L Normal 136-145 [facility] Comment on above: Performed By: #### C MP ####[facility] Gkltcruxhm23[address] [place] [id number]. Chrissy Frazier Urea nitrogen [Mass/Vol] 10.0 mg/dL Normal 7.0-18.0 [facility] Comment on above: Performed By: #### C MP ####[facility] Brtypgohle[address] [place], [place] [address]Dr. Chrissy Frazier Urea nitrogen/Creatinine [Mass ratio] 9.3 mg/mg Normal [facility] Comment on above: Performed By: #### C MP ####[facility] Jxguitrxos4059[address] [place], [place] [address]Dr. Chrissy Frazier CBC AUTO DIFFon 07-02-2022 BASO # 0.0 103/ul Normal 0.0-0.1 [facility] Comment on above: Performed By: #### C BC ####[facility] Gxnlivlzpc16[address] [place], [place] [address]Dr. Chrissy Freddie Basophils/100 WBC (Bld) 0.2 % Normal 0.2-2.0 [facility] Comment on above: Performed By: #### C BC ####[facility] Uljuvhoora5[address] [place], [place] [address]Dr. Chrissy Frazier EO # 0.0 103/ul Normal 0.0-0.7 [facility] Comment on above: Performed By: #### C BC ####[facility] Seqzrzmhet95[address] [place], [place] [address]Dr. Chrissy Freddie Eosinophils/100 WBC (Bld) 0.0 % Critically low 0.9-7.0 [facility] Comment on above: Performed By: #### C BC ####[facility] Zbzfsoohbz44[address] [place], [place] [address]Dr. Chrissy Frazier Erythrocyte distribution width (RBC) [Ratio] 14.2 % Normal 11.0-15.0 [facility] Comment on above: Performed By: #### C BC ####[facility] Hrhblmnhbl3475 [place] [address]Dr. Chrissy Frazier Hematocrit (Bld) [Volume fraction] 46.2 % Normal 42.0-54.0 [facility] Comment on above: Performed By: #### C BC ####[facility] Htknmycxwp7162 [place] [address]Dr. Chrissy Frazier Hemoglobin (Bld) [Mass/Vol] 15.2 g/dL Normal 14.0-18.0 [facility] Comment on above: Performed By: #### C BC ####[facility] Itlulpphym9906 [place] [address]Dr. Chrissy Frazier IG # 0.07 10e3/ul Critically high 0.00-0.03 [facility] Comment on above: Performed By: #### C BC ####[facility] Gveusdclec6923 [place] [address]Dr. Tishrowan Frazier IG % 0.4 % Normal 0.0-0.5 [facility] Comment on above: Performed By: #### C BC ####[facility] Lzuugisxde3[address] [place], [place] [address]Dr. Chrissy Freddie LYMPH # 2.8 103/ul Normal 1.2-3.8 [facility] Comment on above: Performed By: #### C BC ####[facility] Xdyzwuiboh[address] [place], [place] [address]Dr. Tishrowan rFazier Lymphocytes/100 WBC (Bld) 16.7 % Critically low 20.5-60.0 [facility] Comment on above: Performed By: #### C BC ####[facility] Jjuqiektct9[address] [place], [place] [address]Dr. Tishrowan Frazier MANUAL DIFF REQ NO Normal [facility] Comment on above: Performed By: #### C BC ####[facility] Thcwebdmsd5504 [place] [address]Dr. Chrissy Frazier MCH (RBC) [Entitic mass] 28.3 pg Normal 25.9-34.0 [facility] Comment on above: Performed By: #### C BC ####[facility] Dfqmzxiema28[address] [place] [id number]. Chrissy Freddie MCHC (RBC) [Mass/Vol] 32.9 g/dL Normal 29.9-35.2 [facility] Comment on above: Performed By: #### C BC ####[facility] Iifcfxaoae5252 [place] [id number]. Chrissy Frazier MCV (RBC) [Entitic vol] 86.0 fL Normal 80.0-94.0 [facility] Comment on above: Performed By: #### C BC ####[facility] Autgwmypql0364 [place] [address]Dr. Chrissy Frazier MONO # 0.9 103/ul Critically high 0.3-0.8 [facility] [place] [facility] Comment on above: Performed By: #### C BC ####[facility] Ejpkhrijgz69[address] [place], [place] [address]Dr. Chrissy Frazier Monocytes/100 WBC (Bld) 5.1 % Normal 1.7-12.0 [facility] Comment on above: Performed By: #### C BC ####[facility] Yqonpxpace47[address] [place], [place] [address]Dr. Chrissy Frazier NEUT # 13.2 103/ul Critically high 1.4-6.5 [facility] Comment on above: Performed By: #### C BC ####[facility] Zgqppewgby[address] [place], [place] [address]Dr. Chrissy Frzaier Neutrophils/100 WBC (Bld) 77.6 % Critically high 43.0-75.0 [facility] Comment on above: Performed By: #### C BC ####[facility] Zwatgbaqlp[address] [place], [place] [id number] Frazier Platelet mean volume (Bld) [Entitic vol] 11.6 fL Normal 9.5-13.5 [facility] Comment on above: Performed By: #### C BC ####[facility] Eksmp[address]kn[address] [place], [place] [address]Dr. Chrissy Frazier PLT 317 103/ul Normal 150-450 [facility] Comment on above: Performed By: #### C BC ####[facility] Ofphjgfvci2170 [place] [id number]. Chrissy Frazier RBC 5.37 106/ul Normal 4.70-6.10 [facility] Comment on above: Performed By: #### C BC ####[facility] Lswmiamyxj4744 [place], [place] [address]YpNancy Frazier WBC 17.1 103/ul Critically high 4.0-11.0 [facility] Comment on above: Performed By: #### C BC ####[facility] Xpnkjugckq79[address] [place] [id number]. Chrissy Frazier CT ABD/PELV W CONon 07-02-20 CT ABD/PELV W CON Normal [facility] H PYLORI ANTIBODY IGGon 06-21 H. PYLORI IGG ABS 0.13 Index Value Normal 0.00-0.79 [facility] Comment on above: Result Comment: Nega tive <0.80 Equivocal 0.80 - 0.89 Positive >0.89 Performed By: #### H PYLLC ####[facility] Hncnlwbagc3750 [place] [id number] Frazier PROF 14(COMP METB)on 022 Albumin [Mass/Vol] 3.8 g/dL Normal 3.4-5.0 [facility] Comment on above: Performed By: #### C MP ####[facility] Feaylmxtib0424 [place] [id number] Frazier Albumin/Globulin [Mass ratio] 1.0 {ratio} Normal [facility] Comment on above: Performed By: #### C MP ####[facility] Niajfludbw8041 [place] [id number] Frazier ALP [Catalytic activity/Vol] 68 U/L Normal 46-116 [facility] Comment on above: Performed By: #### C MP ####[facility] Umuizngeyv[address] [place] [id number] Frazire ALT [Catalytic activity/Vol] 34 U/L Normal 16-63 [facility] Comment on above: Performed By: #### C MP ####[facility] Qdxlffmsgp3212 [place] [address]Dr. Chrissy Frazier Anion gap [Moles/Vol] 17.9 mmol/L Normal [facility] Comment on above: Performed By: #### C MP ####[facility] Rpnfnjkwvc9255 [place] [id number]. Chrissy Frazier AST [Catalytic activity/Vol] 24 U/L Normal 15-37 [facility] Comment on above: Performed By: #### C MP ####[facility] Nfuasedhzd9943 [place] [id number]. Chrissy Freddie Bilirubin [Mass/Vol] 0.6 mg/dL Normal 0.2-1.0 [facility] Comment on above: Performed By: #### C MP ####[facility] Wcswtvpuju3410 [place] [address]Dr. Tishrowan Freddie Calcium [Mass/Vol] 8.8 mg/dL Normal 8.5-10.1 [facility] Comment on above: Performed By: #### C MP ####[facility] Oredkvgdxp4063 [place] [address]Dr. Chrissy Freddie Chloride [Moles/Vol] 105 mmol/L Normal 98-107 [facility] Comment on above: Performed By: #### C MP ####[facility] Aosdkpffdn2811 [place] [id number]. Chrissy Freddie CO2 [Moles/Vol] 18.8 mmol/L Critically low 21.0-32.0 [facility] Comment on above: Performed By: #### C MP ####[facility] Mljkuzgckj3438 [place] [id number]. Chrissy Freddie Creatinine [Mass/Vol] 1.15 mg/dL Normal 0.70-1.30 [facility] Comment on above: Performed By: #### C MP ####[facility] Ayoadgzivh3312 [place] [id number]. Chrissy Freddie EGFR-AF [place] >60 Normal >=60 [facility] Comment on above: Performed By: #### C MP ####[facility] Ifwndrpven5036 [place] [id number]. Chrissy Frazier EGFR-NON AF [place] >60 Normal >=60 [facility] Comment on above: Performed By: #### C MP ####[facility] Ejdiitbufe9697 [place] [id number]. Chrissy Frazier Globulin (S) [Mass/Vol] 3.9 g/dL Normal [facility] Comment on above: Performed By: #### C MP ####[facility] Feuzcrxmpp3511 [place] [address]Dr. Chrissy Frazier Glucose [Mass/Vol] 124 mg/dL Critically high 74-106 [facility] Comment on above: Performed By: #### C MP ####[facility] Jmzkpekypo1429 [place] [address]Dr. Chrissy Frazier Potassium [Moles/Vol] 3.7 mmol/L Normal 3.5-5.1 [facility] Comment on above: Performed By: #### C MP ####[facility] Mbrsadwclt5322 [place] [address]Dr. Chrissy Frazier Protein [Mass/Vol] 7.7 g/dL Normal 6.4-8.2 [facility] Comment on above: Performed By: #### C MP ####[facility] Vksvhypzao6156 [place] [address]Dr. Chrissy Frazier Sodium [Moles/Vol] 138 mmol/L Normal 136-145 [facility] Comment on above: Performed By: #### C MP ####[facility] Wluhirtajf4521 [place] [address]Dr. Chrissy Frazier Urea nitrogen [Mass/Vol] 9.0 mg/dL Normal 7.0-18.0 [facility] Comment on above: Performed By: #### C MP ####[facility] Ybktbltvfq5918 [place] [address]Dr. Chrissy Frazier Urea nitrogen/Creatinine [Mass ratio] 7.8 mg/mg Normal [facility] Comment on above: Performed By: #### C MP ####[facility] Xxjowfklai[address] [place], [place] [address]Dr. Chrissy Frazier AMMONIAon 07-01-2022 Ammonia (P) [Moles/Vol] 14 umol/L Normal 11-32 [facility] Comment on above: Performed By: #### A MM ####[facility] Zkmmdyfujq4486 [place] [address]Dr. Chrissy Frazier AMYLASEon 07-01-2022 Amylase [Catalytic activity/Vol] 32 U/L Normal 25-115 [facility] Comment on above: Performed By: #### A MY, PHOS, CMP, LIPA ####[facility] Vupxhiiuou[address] [place], [place] [address]Dr. Chrissy Frazier CBC AUTO DIFFon 07-01-2022 BASO # 0.1 103/ul Normal 0.0-0.1 [facility] Comment on above: Performed By: #### C BC ####[facility] Occgvaoweg2535[address] [place], [place] [address]Dr. Tishrowan Frazier Basophils/100 WBC (Bld) 0.4 % Normal 0.2-2.0 [facility] Comment on above: Performed By: #### C BC ####[facility] Ymehxhndci4463[address] [place], [place] [address]Dr. Chrissy Freddie EO # 0.2 103/ul Normal 0.0-0.7 [facility] Comment on above: Performed By: #### C BC ####[facility] Wcmdnmjqok25[address] [place], [place] [address]Dr. Tishrowan Frazier Eosinophils/100 WBC (Bld) 0.9 % Normal 0.9-7.0 [facility] Comment on above: Performed By: #### C BC ####[facility] Tbejqzttex[address] [place], [place] [address]Dr. Chrissy Frazier Erythrocyte distribution width (RBC) [Ratio] 13.8 % Normal 11.0-15.0 [facility] Comment on above: Performed By: #### C BC ####[facility] Tajiozgkci633[address] [place], [place] [address]Dr. Chrissy Frazier Hematocrit (Bld) [Volume fraction] 46.3 % Normal 42.0-54.0 [facility] Comment on above: Performed By: #### C BC ####[facility] Feeozdijhv8942 [place] [address]DrNancy Frazier Hemoglobin (Bld) [Mass/Vol] 15.4 g/dL Normal 14.0-18.0 [facility] Comment on above: Performed By: #### C BC ####[facility] Tbwxkpstby2034 [place] [address]DrNancy Frazier IG # 0.05 10e3/ul Critically high 0.00-0.03 [facility] Comment on above: Performed By: #### C BC ####[facility] Gzmzloilog20[address] [place], [place] [address]DrNancy Frazier IG % 0.3 % Normal 0.0-0.5 [facility] Comment on above: Performed By: #### C BC ####[facility] Amfkwvdabb14[address] [place], [place] [address]DrNancy Frazier LYMPH # 2.0 103/ul Normal 1.2-3.8 [facility] Comment on above: Performed By: #### C BC ####[facility] Kznztxrexd411[address] [place], [place] [address]DrNancy Frazier Lymphocytes/100 WBC (Bld) 12.9 % Critically low 20.5-60.0 [facility] Comment on above: Performed By: #### C BC ####[facility] Whnplhdfhp132[address] [place], [place] [address]DrNancy Frazier MANUAL DIFF REQ NO Normal [facility] Comment on above: Performed By: #### C BC ####[facility] Orpljaqhvf210[address] [place], [place] [address]DrNancy Frazier MCH (RBC) [Entitic mass] 28.6 pg Normal 25.9-34.0 [facility] Comment on above: Performed By: #### C BC ####[facility] Xznyssoctt7[address] [place], [place] [address]DrNancy Frazier MCHC (RBC) [Mass/Vol] 33.3 g/dL Normal 29.9-35.2 [facility] Comment on above: Performed By: #### C BC ####[facility] Fogcabuyhy4905 [place] [address]DrNancy Frazier MCV (RBC) [Entitic vol] 86.1 fL Normal 80.0-94.0 [facility] Comment on above: Performed By: #### C BC ####[facility] Lgjauqmyeq8737 [place] [address]DrNancy Frazier MONO # 0.5 103/ul Normal 0.3-0.8 [facility] Comment on above: Performed By: #### C BC ####[facility] Npfpkfltdh3134[address] [place], [place] [address]DrNancy Frazier Monocytes/100 WBC (Bld) 3.0 % Normal 1.7-12.0 [facility] Comment on above: Performed By: #### C BC ####[facility] Rjiugajukr64[address] [place], [place] [address]DrNancy Frazier NEUT # 13.0 103/ul Critically high 1.4-6.5 [facility] Comment on above: Performed By: #### C BC ####[facility] Qyrpqmsdfo28[address] [place], [place] [address]DrNancy Frazier Neutrophils/100 WBC (Bld) 82.5 % Critically high 43.0-75.0 [facility] Comment on above: Performed By: #### C BC ####[facility] Fodugmjtmg[address] [place], [place] [address]DrNancy Frazier Platelet mean volume (Bld) [Entitic vol] 10.0 fL Normal 9.5-13.5 [facility] Comment on above: Performed By: #### C BC ####[facility] Xvqevsxasz9[address] [place], [place] [address]DrNancy Frazier PLT 370 103/ul Normal 150-450 [facility] Comment on above: Performed By: #### C BC ####[facility] Undxrfyagj95[address] [place], [place] [address]DrNancy Frazier RBC 5.38 106/ul Normal 4.70-6.10 [facility] Comment on above: Performed By: #### C BC ####[facility] Zfiwxuslsp7580 [place], [place] [address]Lm. Chrissy Frazier WBC 15.8 103/ul Critically high 4.0-11.0 [facility] Comment on above: Performed By: #### C BC ####[facility] Evvenseqhp8895 [place], [place] [address]Em. Chrissy Frazier CULTURE URINEon 07-01-2022 CULTURE URINE Culture Observations : No growth Normal [facility] Comment on above: Performed By: #### U RCX ####[facility] Xscwbmvcid3255 [place], [place] [address]My. Chrissy Frazier Covid-19 PCR (CVDTBH)on 06-21 SARS-CoV-2 (COVID-19) RNA RHIANNON+probe Ql (Unsp spec) Not detected Normal NOT DETECTED [facility] Comment on above: Result Comment: [...] for this test is supported by the Debit Agent of Health and Human Service's declaration that [...] be used). Performed By: #### C VDTBH ####[facility] Tjbvesqqlz0505 [place], [place] [address]Rk. Chrissy Frazier DRUG SCREEN RAPID (URINE)on 07-01-2022 AMP Negative Normal NEGATIVE [facility] Comment on above: Performed By: #### D RUGRPD, UAMIC ####[facility] Qwfmlgqvsp0626 [place] [address]Dr. Tishrowan Frazier BAR Negative Normal NEGATIVE [facility] Comment on above: Performed By: #### D REYES, UAMIC ####[facility] Qsppwmbrzg1464 [place] [address]Dr. Tishrowan Frazier BUP Negative Normal NEGATIVE [facility] Comment on above: Performed By: #### D REYES, UAMIC ####[facility] Zvbudnglth2990 [place] [address]Dr. Tishrowan Frazier BZO Negative Normal NEGATIVE [facility] Comment on above: Performed By: #### D REYES UAMIC ####[facility] Xpxuuzngms[address] [place], [place] [address]Dr. Chrissy Frazier LAUREN Negative Normal NEGATIVE [facility] Comment on above: Performed By: #### D REYES, UAMIC ####[facility] Sqkequcbxh7[address] [place], [place] [address]Dr. Chrissy Frazier CUT-OFFS SEE BELOW Normal [facility] Comment on above: Result Comment: AMP (Amphetamine): 500ng/mL, BAR (Barbituates): 200 ng/mL, BZO (Benzodiazepines): 150 ng/mL, BUP (Buprenorphine): 10 ng/mL, LAUREN (Cocaine): 150 ng/mL, mAMP (Methamphetamine): 500 ng/mL, MTD (Methadone): 200 ng/mL, OPI (Opiates): 100 ng/mL, OXY (Oxycodone): 100 ng/mL, PCP (Phencyclidine): 25 ng/mL, PPX (Propoxyphene): 300 ng/mL, THC (Cannabinoids): 50 ng/mL, TCA (Trycyclic Antidepressants): 300 ng/mL Performed By: #### D REYES UAMIC ####[facility] Zitdeybsgl[address] [place], [place] [address]Dr. Chrissy Frazier DRUG CUT HEADER DRUG CLASS TEST SYSTEM CUT-OFF CONCENTRATIONS ARE FOLLOWS: Normal [facility] Comment on above: Performed By: #### Amelie CHAMBERS UAMIC ####[facility] Vazfucssll[address] [place], [place] [address]Dr. Chrissy Frazier mAMP Negative Normal NEGATIVE [facility] Comment on above: Performed By: #### D REYES, UAMIC ####[facility] Xokfylapvw[address] [place], [place] [address]Dr. Chrissy Frazier MTD Negative Normal NEGATIVE [facility] Comment on above: Performed By: #### D CHAYAD, UAMIC ####[facility] Loxiqrxcai7664 [place] [address]Dr. Chrissy Frazier OPI Negative Normal NEGATIVE [facility] Center Comment on above: Performed By: #### D CHAYAD, UAMIC ####[facility] [address]ucgr[address]xs[address] [place], [place] [address]Dr. Chrissy Frazier OXY Negative Normal NEGATIVE [facility] Comment on above: Performed By: #### D REYES, UAMIC ####[facility] Aqafjnxmis[address] [place], [place] [address]Dr. Chrissy Frazier PCP Negative Normal NEGATIVE [facility] Comment on above: Performed By: #### D REYES, UAMIC ####[facility] Peifmyzwlf[address] [place], [place] [address]Dr. Chrissy Frazier PPX Negative Normal NEGATIVE [facility] Comment on above: Performed By: #### D REYES, UAMIC ####[facility] Ctbkmcimgc[address] [place], [place] [address]Dr. Chrissy Frazier TCA Negative Normal NEGATIVE [facility] Comment on above: Performed By: #### D REYES, UAMIC ####[facility] Odnmklweoo[address] [place], [place] [address]Dr. Chrissy Frazier THC Positive Abnormal NEGATIVE [facility] Comment on above: Performed By: #### D REYES, UAMIC ####[facility] Yxehztudzn[address] [place], [place] [address]Dr. Chrissy Frazier LACTATE/LACTIC ACIDon 2021 Lactate [Moles/Vol] 4.4 mmol/L Critically high 0.4-1.9 [facility] Comment on above: Performed By: #### L ACT ####[facility] Bhasxwqceu[address] [place] [address]Dr. Tishrowan Frazier LIPASEon 07-01-2022 Lipase [Catalytic activity/Vol] 57.0 U/L Critically low 73.0-393.0 [facility] Comment on above: Performed By: #### A MY, PHOS, CMP, LIPA ####[facility] Vobzcgljik[address] [place] [address]Dr. Chrissy Frazier PHOSPHORUSon 07-01-2022 Phosphate [Mass/Vol] 1.4 mg/dL Critically low 2.6-4.7 [facility] Comment on above: Performed By: #### A MY, PHOS, CMP, LIPA ####[facility] Wliaevzbzl0511 [place] [address]Dr. Chrissy Frazier PROF 14(COMP METB)on 022 Albumin [Mass/Vol] 4.2 g/dL Normal 3.4-5.0 [facility] Comment on above: Performed By: #### A MY, PHOS, CMP, LIPA ####[facility] Phyawdqjbt28[address] [place] [address]Dr. Chrissy Frazier Albumin/Globulin [Mass ratio] 1.1 {ratio} Normal [facility] Comment on above: Performed By: #### A MY, PHOS, CMP, LIPA ####[facility] Xqhlepjxny[address] [place] [address]Dr. Chrissy Frazier ALP [Catalytic activity/Vol] 73 U/L Normal 46-116 [facility] Comment on above: Performed By: #### A MY, PHOS, CMP, LIPA ####[facility] Pxrerzrbmh3620 [place] [address]Dr. Chrissy Frazier ALT [Catalytic activity/Vol] 43 U/L Normal 16-63 [facility] Comment on above: Performed By: #### A MY, PHOS, CMP, LIPA ####[facility] Hiqpilrowk5808 [place] [address]Dr. Chrissy Frazier Anion gap [Moles/Vol] 19.0 mmol/L Normal [facility] Comment on above: Performed By: #### A MY, PHOS, CMP, LIPA ####[facility] Ewqbijukut7[address] [place] [address]Dr. Chrissy Frazier AST [Catalytic activity/Vol] 21 U/L Normal 15-37 [facility] Comment on above: Performed By: #### A MY, PHOS, CMP, LIPA ####[facility] Phhjkbajkl01[address] [place] [address]Dr. Chrissy Frazier Bilirubin [Mass/Vol] 0.5 mg/dL Normal 0.2-1.0 [facility] Comment on above: Performed By: #### A MY, PHOS, CMP, LIPA ####[facility] Hgzuyojfam1699 [place] [address]Dr. Chrissy Frazier Calcium [Mass/Vol] 9.3 mg/dL Normal 8.5-10.1 [facility] Comment on above: Performed By: #### A MY, PHOS, CMP, LIPA ####[facility] Gnbcjrpbfu6257 [place] [address]Dr. Chrissy Frazier Chloride [Moles/Vol] 103 mmol/L Normal 98-107 [facility] Comment on above: Performed By: #### A MY, PHOS, CMP, LIPA ####[facility] Ybhyajonpl[address] [place], [place] [address]Dr. Chrissy Frazier CO2 [Moles/Vol] 21.1 mmol/L Normal 21.0-32.0 [facility] Comment on above: Performed By: #### A MY, PHOS, CMP, LIPA ####[facility] Uqpqrdgoxm2244 [place] [address]Dr. Chrissy Frazier Creatinine [Mass/Vol] 1.44 mg/dL Critically high 0.70-1.30 [facility] Comment on above: Performed By: #### A MY, PHOS, CMP, LIPA ####[facility] Zxxoedfuh[address] [place], [place] [address]Dr. Chrissy Frazier EGFR-AF [place] >60 Normal >=60 [facility] Comment on above: Performed By: #### A MY, PHOS, CMP, LIPA ####[facility] Qzgkktophz5585 [place] [address]Dr. Chrissy Frazier EGFR-NON AF [place] 57 mL/min/1.73m2 Critically low >=60 [facility] Comment on above: Performed By: #### A MY, PHOS, CMP, LIPA ####[facility] Tynlsvnvtu2857 [place] [address]Dr. Chrissy Frazier Globulin (S) [Mass/Vol] 3.9 g/dL Normal [facility] Comment on above: Performed By: #### A MY, PHOS, CMP, LIPA ####[facility] Odlspfoytt8396 [place] [address]Dr. Chrissy Frazier Glucose [Mass/Vol] 148 mg/dL Critically high 74-[address] [facility] Comment on above: Performed By: #### A MY, PHOS, CMP, LIPA ####[facility] Baxpfymkys4027 [place] [address]Dr. Chrissy Frazier Potassium [Moles/Vol] 3.1 mmol/L Critically low 3.5-5.1 [facility] Comment on above: Performed By: #### A MY, PHOS, CMP, LIPA ####[facility] Zljachvtqf7380 [place] [address]Dr. Chrissy Frazier Protein [Mass/Vol] 8.1 g/dL Normal 6.4-8.2 [facility] Comment on above: Performed By: #### A MY, PHOS, CMP, LIPA ####[facility] Ruvdaztqyt0969 [place] [address]Dr. Chrissy Frazier Sodium [Moles/Vol] 140 mmol/L Normal 136-145 [facility] Comment on above: Performed By: #### A MY, PHOS, CMP, LIPA ####[facility] Bptbrznlzb8415 [place] [address]Dr. Chrissy Frazier Urea nitrogen [Mass/Vol] 10.0 mg/dL Normal 7.0-18.0 [facility] Comment on above: Performed By: #### A MY, PHOS, CMP, LIPA ####[facility] Fcvntduynw5662 [place] [address]Dr. Chrissy Frazier Urea nitrogen/Creatinine [Mass ratio] 6.9 mg/mg Normal [facility] Comment on above: Performed By: #### A MY, PHOS, CMP, LIPA ####[facility] Lsbababbdw9449 [place] [address]Dr. Chrissy Frazier UA RANDOM W/MICROSCOPICon BACTERIA TRACE Abnormal NONE SEEN [facility] Comment on above: Performed By: #### D REYES UAMIC ####[facility] Soyhuzjfjv8178 [place] [address]Dr. Chrissy Frazier Bilirubin Ql (U) Negative Normal NEGATIVE [facility] Comment on above: Performed By: #### D REYES UAMIC ####[facility] Gfuqfhpvnz3252 [place] [address]Dr. Chrissy Frazier CAST NONE SEEN Normal NONE SEEN [facility] Comment on above: Performed By: #### Amelie CHAMBERS UAMIC ####[facility] Kpmspaoifk[address] [place], [place] [address]Dr. Chrissy Frazier Clarity (U) CLEAR Normal CLEAR [facility] Comment on above: Performed By: #### D REYES UAMIC ####[facility] Ghjihceabq[address] [place], [place] [address]Dr. Chrissy Frazier Color (U) YELLOW Normal YELLOW [facility] Comment on above: Performed By: #### D REYES UAMIC ####[facility] Afpswegmwu24[address] [place], [place] [address]Dr. Chrissy Frazier Crystals LM Nom (Urine sed) NONE SEEN Normal NONE SEEN [facility] Comment on above: Performed By: #### D REYES, UAMIC ####[facility] Mmrgeyoypm6605 [place] [address]Dr. Chrissy Frazier Epithelial cells LM Ql (Urine sed) RARE Normal NONE SEEN /RARE [facility] Comment on above: Performed By: #### D REYES UAMIC ####[facility] Cblrlevxtv0307 [place] [address]Dr. Chrissy Frazier Glucose Ql (U) Negative Normal NEGATIVE The [facility] Comment on above: Performed By: #### Amelie CHAMBERS, UAMIC ####[facility] Jzhvgrrkoy6627 [place] [address]Dr. Chrissy Frazier Hemoglobin Ql (U) Negative Normal NEGATIVE The [facility] Comment on above: Performed By: #### Amelie CHAMBERS, UAMIC ####[facility] Ejfcxmhfnb[address] [place], [place] [address]Dr. Chrissy Frazier Ketones Ql (U) 40 mg/dl Abnormal NEGATIVE [facility] Comment on above: Performed By: #### Amelie CHAMBERS UAMIC ####[facility] Scdhldxoul[address] [place], [place] [address]Dr. Chrissy Frazier LEUKOCYTES Negative Normal NEGATIVE [facility] Comment on above: Performed By: #### Amelie CHAMBERS UAMIC ####[facility] Xfigdmetql[address] [place], [place] [address]Dr. Chrissy Frazier MUCOUS MODERATE Abnormal NONE SEEN [facility] Comment on above: Performed By: #### Amelie CHAMBERS UAMIC ####[facility] Evjafeufox[address] [place], [place] [address]Dr. Chrissy Frazier Nitrite Ql (U) Negative Normal NEGATIVE The [facility] Comment on above: Performed By: #### Amelie CHAMBERS UAMIC ####[facility] Yaeobbolgp[address] [place], [place] [address]Dr. Tishrowan Frazier pH (U) 6.0 [pH] Normal 5-9 [facility] Comment on above: Performed By: #### Amelie CHAMBERS UAMIC ####[facility] Aybxuspqvc[address] [place], [place] [address]Dr. Chrissy Frazier RBC 0-2 Normal 0-2 [facility] Comment on above: Performed By: #### Amelie CHAMBERS UAMIC ####[facility] Tsnqutbbpt[address] [place], [place] [address]Dr. Chrissy Frazier SPEC GRAVITY 1.020 Normal 1.005-<=1.025 [facility] Comment on above: Performed By: #### Amelie CHAMBERS UAMIC ####[facility] Kntaxwwoyz[address] [place] [id number]. Chrissy Frazier UA PROTEIN Negative Normal NEGATIVE/ TRACE [facility] Comment on above: Performed By: #### D REYES UAMIC ####[facility] Bazonsh[address]u7[address] [place], [place] [address]Nk. Chrissy Frazier Urobilinogen Qn (U) 0.2 {Estrellita'U}/dL Normal 0.2 - 1. 0 [facility] Comment on above: Performed By: #### D REYES UAMIC ####[facility] Mmtbrhhaca5511 [place], [place] [address]Hz. Chrissy Frazier WBC 0-2 Abnormal NONE SEEN [facility] Comment on above: Performed By: #### D REYES UAMIC ####[facility] Imutkdbaam28[address] [place] [id number]. Chrissy Frazier XR ABD FLAT UP_PA Enoch 07-01 XR ABD FLAT UP_PA CH Normal [facility] Covid-19 PCR (CVDTB)on SARS-CoV-2 (COVID-19) RNA RHIANNON+probe Ql (Unsp spec) Not detected Normal NOT DETECTED [facility] Comment on above: Result Comment: [...] for this test is supported by the Debit Agent of Health and Human Service's declaration that [...] be used). Performed By: #### C VDTBH ####[facility] Uhrvrmzqri7248 [place] [address]Dr. Chrissy Frazier SYMPTOMATIC COVID-19 ANTIGEN on 04-23-2022 EUA Statement SEE BELOW Normal [facility] Comment on above: Result Comment: This test [...] revoked sooner. Performed By: #### C VDAGS ####[facility] Athgoopbkv[address] [place], [place] [address]Dr. Chrissy Frazier SARS-CoV-2 (COVID-19) RNA RHIANNON+probe Ql (Unsp spec) Negative Normal NEGATIVE [facility] Comment on above: Performed By: #### C VDAGS ####[facility] Xfyxwedxpz[address] [place], [place] [address]Dr. Chrissy Frazier AMYLASEon 04-04-2022 Amylase [Catalytic activity/Vol] 40 U/L Normal 25-115 [facility] Comment on above: Performed By: #### C MP, TERRENCE, LIPA ####[facility] Bgrlhsqqnu[address] [place], [place] [address]Dr. Chrissy Frazier CBC AUTO DIFFon 04-04-2022 BASO # 0.1 103/ul Normal 0.0-0.1 [facility] Comment on above: Performed By: #### C BC ####[facility] Gmtgwohyab9093 [place] [address]Dr. Chrissy Frazier Basophils/100 WBC (Bld) 0.4 % Normal 0.2-2.0 [facility] Comment on above: Performed By: #### C BC ####[facility] Tzigkfffbq7010 [place] [id number]. Chrissy Frazier EO # 0.1 103/ul Normal 0.0-0.7 [facility] Comment on above: Performed By: #### C BC ####[facility] Wjqerzhtyz2089 [place] [id number]. Chrissy Frazier Eosinophils/100 WBC (Bld) 0.6 % Critically low 0.9-7.0 [facility] Comment on above: Performed By: #### C BC ####[facility] Tzxnctwvyi[address] [place], [place] [address]Dr. Chrissy Frazier Erythrocyte distribution width (RBC) [Ratio] 13.2 % Normal 11.0-15.0 [facility] Comment on above: Performed By: #### C BC ####[facility] Kzmhsudjnq[address] [place], [place] [address]Dr. Chrissy Frazier Hematocrit (Bld) [Volume fraction] 48.3 % Normal 42.0-54.0 [facility] Comment on above: Performed By: #### C BC ####[facility] Zslamolwak[address] [place], [place] [address]Dr. Chrissy Frazier Hemoglobin (Bld) [Mass/Vol] 16.1 g/dL Normal 14.0-18.0 [facility] Comment on above: Performed By: #### C BC ####[facility] Kklrksydvx[address] [place], [place] [address]Dr. Chrissy Frazier IG # 0.12 10e3/ul Critically high 0.00-0.03 [facility] Comment on above: Performed By: #### C BC ####[facility] Mmbanosfae[address] [place], [place] [address]Dr. Chrissy Frazier IG % 0.9 % Critically high 0.0-0.5 [facility] [place] [facility] Comment on above: Performed By: #### C BC ####[facility] Pnfcdlsrcc[address] [place], [place] [address]Dr. Chrissy Frazier LYMPH # 3.0 103/ul Normal 1.2-3.8 [facility] Comment on above: Performed By: #### C BC ####[facility] Ckoqaeydce0923 [place] [id number]. Chrissy Frazier Lymphocytes/100 WBC (Bld) 22.3 % Normal 20.5-60.0 [facility] Comment on above: Performed By: #### C BC ####[facility] Lbdlszzbxs8937 [place] [id number]. Tishrowan Frazier MANUAL DIFF REQ NO Normal [facility] [place] [facility] Comment on above: Performed By: #### C BC ####[facility] Houkuqcvap5918 [place] [id number]. Chrissy Freddie MCH (RBC) [Entitic mass] 28.6 pg Normal 25.9-34.0 [facility] Comment on above: Performed By: #### C BC ####[facility] Nnebxsguvc[address] [place], [place] [address]Dr. Chrissy Freddie MCHC (RBC) [Mass/Vol] 33.3 g/dL Normal 29.9-35.2 [facility] Comment on above: Performed By: #### C BC ####[facility] Frwgjveuni7756 [place] [id number]. Chrissy Freddie MCV (RBC) [Entitic vol] 85.9 fL Normal 80.0-94.0 [facility] Comment on above: Performed By: #### C BC ####[facility] [address]jtaqsvfq[address] [place], [place] [address]Dr. iTshrowan Freddie MONO # 0.8 103/ul Normal 0.3-0.8 [facility] Comment on above: Performed By: #### C BC ####[facility] [address] [place], [place] [id number]. Tishrowan Frazier Monocytes/100 WBC (Bld) 5.7 % Normal 1.7-12.0 [facility] Comment on above: Performed By: #### C BC ####[facility] [address]fugaklrcw[address] [place], [place] [id number]. Chrissy Frazier NEUT # 9.3 103/ul Critically high 1.4-6.5 [facility] [place] [facility] Comment on above: Performed By: #### C BC ####[facility] Vsjgjbpkac7062 [place] [id number]. Chrissy Frazier Neutrophils/100 WBC (Bld) 70.1 % Normal 43.0-75.0 [facility] Comment on above: Performed By: #### C BC ####[facility] Fgbgakjsvf1705 [place] [id number]. Chrissy Frazier Platelet mean volume (Bld) [Entitic vol] 10.3 fL Normal 9.5-13.5 [facility] Comment on above: Performed By: #### C BC ####[facility] Pdelakkzrg0850 [place] [id number]. Chrissy Frazier PLT 461 103/ul Critically high 150-450 [facility] Comment on above: Performed By: #### C BC ####[facility] Xkrspefses4811 [place] [address]Dr. Chrissy Frazier RBC 5.62 106/ul Normal 4.70-6.10 [facility] Comment on above: Performed By: #### C BC ####[facility] Kltvapgsgt0215 [place] [id number]. Chrissy Frazier WBC 13.3 103/ul Critically high 4.0-11.0 [facility] Comment on above: Performed By: #### C BC ####[facility] Qtbuafssht0632 [place] [id number]. Crhissy Frazier LIPASEon 04-04-2022 Lipase [Catalytic activity/Vol] 118.0 U/L Normal 73.0-393.0 [facility] Comment on above: Performed By: #### C MANA, TERRENCE, LIPA ####[facility] Shornwddel[address] [place] [id number]. Chrissy Frazier PROF 14(COMP METB)on 022 Albumin [Mass/Vol] 4.3 g/dL Normal 3.4-5.0 [facility] Comment on above: Performed By: #### C MP, TERRENCE, LIPA ####[facility] Tnzhvagrfx9739 [place] [address]Dr. Chrissy Frazier Albumin/Globulin [Mass ratio] 1.0 {ratio} Normal [facility] Comment on above: Performed By: #### C TERRENCE ADAIR LIPA ####[facility] Ncoyiccnjc8518 [place] [address]Dr. Chrissy Frazier ALP [Catalytic activity/Vol] 84 U/L Normal 46-116 [facility] Comment on above: Performed By: #### C MANA TERRENCE, LIPA ####[facility] Jsawzxwjsj8337 [place] [address]Dr. Chrissy Frazier ALT [Catalytic activity/Vol] 81 U/L Critically high 16-63 [facility] Comment on above: Performed By: #### C TERRENCE ADAIR LIPA ####[facility] Jlmlypoite1329 [place] [address]Dr. Chrissy Frazier Anion gap [Moles/Vol] 17.9 mmol/L Normal [facility] Comment on above: Performed By: #### C TERRENCE ADAIR LIPA ####[facility] Quxpwufoqr[address] [place], [place] [address]Dr. Chrissy Frazier AST [Catalytic activity/Vol] 25 U/L Normal 15-37 [facility] Comment on above: Performed By: #### C TERRENCE ADAIR LIPA ####[facility] Ehuiaqtodl3914 [place] [address]Dr. Chrissy Frazier Bilirubin [Mass/Vol] 0.5 mg/dL Normal 0.2-1.0 [facility] Comment on above: Performed By: #### C TERRENCE ADAIR, LIPA ####[facility] [address]obyguds[address] [place], [place] [address]Dr. Chrissy Frazier Calcium [Mass/Vol] 9.6 mg/dL Normal 8.5-10.1 [facility] Comment on above: Performed By: #### C TERRENCE ADAIR, LIPA ####[facility] Lutudpvadh5429 [place] [address]Dr. Chrissy Frazier Chloride [Moles/Vol] 101 mmol/L Normal 98-107 [facility] Comment on above: Performed By: #### C MANA TERRENCE, LIPA ####[facility] Sdlduhilal5657 [place] [address]Dr. Chrissy Frazier CO2 [Moles/Vol] 18.6 mmol/L Critically low 21.0-32.0 [facility] Comment on above: Performed By: #### C MP, TERRENCE, LIPA ####[facility] Yqrxqnezxg1577 [place] [address]Dr. Chrissy Frazier Creatinine [Mass/Vol] 1.39 mg/dL Critically high 0.70-1.30 [facility] Comment on above: Performed By: #### C MP, TERRENCE, LIPA ####[facility] Nokebeiopy3866 [place] [address]Dr. Chrissy Frazier EGFR-AF [place] >60 Normal >=60 [facility] Comment on above: Performed By: #### C MP, TERRENCE, LIPA ####[facility] Xmgqprrlqs5334 [place] [address]Dr. Chrissy Freddie EGFR-NON AF [place] 59 mL/min/1.73m2 Critically low >=60 [facility] Comment on above: Performed By: #### C MP, TERRENCE, LIPA ####[facility] Vfhnxdbbbd[address] [place], [place] [address]Dr. Chrissy Frazier Globulin (S) [Mass/Vol] 4.3 g/dL Normal [facility] Comment on above: Performed By: #### C MP, TERRENCE, LIPA ####[facility] Aglopwimqd6030 [place] [address]Dr. Chrsisy Frazier Glucose [Mass/Vol] 132 mg/dL Critically high 74-106 [facility] Comment on above: Performed By: #### C MP, TERRENCE, LIPA ####[facility] Gijenxkehs1137 [place] [address]Dr. Chrissy Frazier Potassium [Moles/Vol] 3.5 mmol/L Normal 3.5-5.1 [facility] Comment on above: Performed By: #### C MP, TERRENCE, LIPA ####[facility] Wfeesqafqh6383 [place] [address]Dr. Chrissy Frazier Protein [Mass/Vol] 8.6 g/dL Critically high 6.4-8.[address] [facility] Comment on above: Performed By: #### C TERRENCE ADAIR LIPA ####[facility] Kovefhotpj0052 [place] [address]Dr. Chrissy Frazier Sodium [Moles/Vol] 134 mmol/L Critically low 136-145 [facility] Comment on above: Performed By: #### C TERRENCE ADAIR LIPA ####[facility] Slxzfdnzmc[address] [place], [place] [address]Dr. Chrissy Frazier Urea nitrogen [Mass/Vol] 8.0 mg/dL Normal 7.0-18.0 [facility] Comment on above: Performed By: #### C TERRENCE ADAIR LIPA ####[facility] [address]jwpgjds[address] [place], [place] [address]Dr. Chrissy Frazier Urea nitrogen/Creatinine [Mass ratio] 5.8 mg/mg Normal [facility] Comment on above: Performed By: #### C TERRENCE ADAIR LIPA ####[facility] Nsfppvsbcp[address] [place], [place] [address]Dr. Chrissy Frazier XR ABD FLAT UP_PA Enoch 04-04 XR ABD FLAT UP_PA CH Normal [facility] AMMONIAon 03-31-2022 Ammonia (P) [Moles/Vol] 19 umol/L Normal 11-32 [facility] Comment on above: Performed By: #### A MM ####[facility] [address]hyhufyqn[address] [place], [place] [address]Dr. Chrissy Frazier CBC AUTO DIFFon 03-31-2022 BASO # 0.1 103/ul Normal 0.0-0.1 [facility] Comment on above: Performed By: #### C BC ####[facility] Ytddvyasay[address] [place], [place] [address]Dr. Chrissy Frazier Basophils/100 WBC (Bld) 0.5 % Normal 0.2-2.0 [facility] Comment on above: Performed By: #### C BC ####[facility] I[address]jv[address]ow[address] [place], [place] [address]Dr. Chrissy Frazier EO # 0.2 103/ul Normal 0.0-0.7 [facility] Comment on above: Performed By: #### C BC ####[facility] Urzverayvw14[address] [place], [place] [address]Dr. Chrissy Freddie Eosinophils/100 WBC (Bld) 1.6 % Normal 0.9-7.0 [facility] Comment on above: Performed By: #### C BC ####[facility] Ygpldwvrqu789[address] [place], [place] [address]Dr. Chrissy Freddie Erythrocyte distribution width (RBC) [Ratio] 13.2 % Normal 11.0-15.0 [facility] Comment on above: Performed By: #### C BC ####[facility] Wnbcuxirsc6215[address] [place], [place] [address]Dr. Chrissy Frazier Hematocrit (Bld) [Volume fraction] 42.1 % Normal 42.0-54.0 [facility] Comment on above: Performed By: #### C BC ####[facility] Ghcfbadzbp595[address] [place], [place] [address]Dr. Chrissy Frazier Hemoglobin (Bld) [Mass/Vol] 14.3 g/dL Normal 14.0-18.0 [facility] Comment on above: Performed By: #### C BC ####[facility] Ddjmlpvetn733[address] [place], [place] [address]Dr. Chrissy Frazier IG # 0.05 10e3/ul Critically high 0.00-0.03 [facility] Comment on above: Performed By: #### C BC ####[facility] Cydhjakpfy10[address] [place], [place] [address]Dr. Chrissy Frazier IG % 0.5 % Normal 0.0-0.5 [facility] Comment on above: Performed By: #### C BC ####[facility] Vapcvgyqlu0864[address] [place], [place] [address]DrNancy Frazier LYMPH # 2.9 103/ul Normal 1.2-3.8 [facility] Comment on above: Performed By: #### C BC ####[facility] Ldbkbgrnyt1614[address] [place], [place] [address]Dr. Chrissy Frazier Lymphocytes/100 WBC (Bld) 25.7 % Normal 20.5-60.0 [facility] Comment on above: Performed By: #### C BC ####[facility] Fgbkhklnca8135 [place] [address]Dr. Chrissy Frazier MANUAL DIFF REQ NO Normal [facility] Comment on above: Performed By: #### C BC ####[facility] Advaanqrlf1589 [place] [address]Dr. Chrissy Frazier MCH (RBC) [Entitic mass] 29.2 pg Normal 25.9-34.0 [facility] Comment on above: Performed By: #### C BC ####[facility] Lqquvxhage4268[address] [place], [place] [address]Dr. Chrissy Frazier MCHC (RBC) [Mass/Vol] 34.0 g/dL Normal 29.9-35.2 [facility] Comment on above: Performed By: #### C BC ####[facility] Rixamvjtny6499[address] [place], [place] [address]Dr. Chrissy Frazier MCV (RBC) [Entitic vol] 85.9 fL Normal 80.0-94.0 [facility] Comment on above: Performed By: #### C BC ####[facility] Tzakhwyymv975[address] [place], [place] [address]DrNancy Frazier MONO # 1.0 103/ul Critically high 0.3-0.8 [facility] Comment on above: Performed By: #### C BC ####[facility] Nliowtjufu7597[address] [place], [place] [address]Dr. Chrissy Frazier Monocytes/100 WBC (Bld) 8.6 % Normal 1.7-12.0 [facility] Comment on above: Performed By: #### C BC ####[facility] Prenkcsoyk3756[address] [place], [place] [address]DrNancy Frazier NEUT # 7.0 103/ul Critically high 1.4-6.5 [facility] Comment on above: Performed By: #### C BC ####[facility] Lmmbuwjgof6720[address] [place], [place] [address]DrNancy Frazier Neutrophils/100 WBC (Bld) 63.1 % Normal 43.0-75.0 [facility] Comment on above: Performed By: #### C BC ####[facility] Pfqdmevxog1156 [place] [address]Dr. Chrissy Frazier Platelet mean volume (Bld) [Entitic vol] 10.4 fL Normal 9.5-13.5 [facility] Comment on above: Performed By: #### C BC ####[facility] Ggdujslejt7275 [place] [address]Dr. Chrissy Frazier PLT 308 103/ul Normal 150-450 [facility] Comment on above: Performed By: #### C BC ####[facility] Ckeduuuwfz9927[address] [place], [place] [address]Dr. Chrissy Frazier RBC 4.90 106/ul Normal 4.70-6.10 [facility] Comment on above: Performed By: #### C BC ####[facility] Nkikyzfjfj9437[address] [place], [place] [address]DrNancy Frazier WBC 11.1 103/ul Critically high 4.0-11.0 [facility] Comment on above: Performed By: #### C BC ####[facility] Shggfvleyo3897[address] [place], [place] [address]DrNancy Frazier PROF 14(COMP METB)on 022 Albumin [Mass/Vol] 3.5 g/dL Normal 3.4-5.0 [facility] Comment on above: Performed By: #### C MP ####[facility] Zpiqkdricq216[address] [place], [place] [address]DrNancy Frazier Albumin/Globulin [Mass ratio] 0.9 {ratio} Normal [facility] Comment on above: Performed By: #### C MP ####[facility] Znbmkhwjwp9969[address] [place], [place] [address]DrNancy Frazier ALP [Catalytic activity/Vol] 68 U/L Normal 46-116 [facility] Comment on above: Performed By: #### C MP ####[facility] Ewujukdcpn0186[address] [place], [place] [address]DrNancy Frazier ALT [Catalytic activity/Vol] 113 U/L Critically high 16-63 [facility] Comment on above: Performed By: #### C MP ####[facility] Sgqnwogsdy9507 [place] [address]Dr. Tishrowan Freddie Anion gap [Moles/Vol] 14.0 mmol/L Normal [facility] Comment on above: Performed By: #### C MP ####[facility] Bfpxixdgzc6618[address] [place], [place] [address]Dr. Chrissy Freddie AST [Catalytic activity/Vol] 31 U/L Normal 15-37 [facility] Comment on above: Performed By: #### C MP ####[facility] Dryufgdvlv577[address] [place], [place] [address]Dr. Chrissy Frazier Bilirubin [Mass/Vol] 0.6 mg/dL Normal 0.2-1.0 [facility] Comment on above: Performed By: #### C MP ####[facility] Rxrfubvyik2829[address] [place], [place] [address]Dr. Chrissy Frazier Calcium [Mass/Vol] 8.4 mg/dL Critically low 8.5-10.1 [facility] Comment on above: Performed By: #### C MP ####[facility] Cciqwzifps0325[address] [place], [place] [address]Dr. Chrissy Frazier Chloride [Moles/Vol] 101 mmol/L Normal 98-107 [facility] Comment on above: Performed By: #### C MP ####[facility] Qyvwqnmrtu5946[address] [place], [place] [address]Dr. Chrissy Frazier CO2 [Moles/Vol] 24.2 mmol/L Normal 21.0-32.0 [facility] Comment on above: Performed By: #### C MP ####[facility] Dwhbhtyczu815[address] [place], [place] [address]Dr. Chrissy Frazier Creatinine [Mass/Vol] 1.15 mg/dL Normal 0.70-1.30 [facility] Comment on above: Performed By: #### C MP ####[facility] Snkcdsywwz807[address] [place], [place] [address]Dr. Chrissy Frazier EGFR-AF [place] >60 Normal >=60 [facility] Comment on above: Performed By: #### C MP ####[facility] Mjodxqyayb36[address] [place] [id number]. Chrissy Frazier EGFR-NON AF [place] >60 Normal >=60 [facility] Comment on above: Performed By: #### C MP ####[facility] Mhqedyfkwn8628 [place] [id number]. Chrissy Frazier Globulin (S) [Mass/Vol] 3.8 g/dL Normal [facility] Comment on above: Performed By: #### C MP ####[facility] Dmzobggnzd7863 [place] [id number]. Chrissy Frazier Glucose [Mass/Vol] 100 mg/dL Normal 74-106 [facility] Comment on above: Performed By: #### C MP ####[facility] Ozhrmbguqd3918 [place] [id number]. Chrissy Freddie Potassium [Moles/Vol] 3.2 mmol/L Critically low 3.5-5.1 [facility] Comment on above: Performed By: #### C MP ####[facility] Klewgzslhu2935 [place] [id number]. Chrissy Frazier Protein [Mass/Vol] 7.3 g/dL Normal 6.4-8.2 [facility] Comment on above: Performed By: #### C MP ####[facility] Cakrmkrize4[address] [place] [address]Dr. Chrissy Frazier Sodium [Moles/Vol] 136 mmol/L Normal 136-145 [facility] Comment on above: Performed By: #### C MP ####[facility] Ztvzwlantj4635 [place] [id number]. Chrissy Frazier Urea nitrogen [Mass/Vol] 13.0 mg/dL Normal 7.0-18.0 [facility] Comment on above: Performed By: #### C MP ####[facility] Ynostifmnr9751 [place] [id number]. Tishrowna Freddie Urea nitrogen/Creatinine [Mass ratio] 11.3 mg/mg Normal [facility] Comment on above: Performed By: #### C MP ####[facility] Hapffisnut[address] [place] [address]Dr. Tishrowan Frazier AMMONIAon 03-30-2022 Ammonia (P) [Mass/Vol] ug/dL Critically low 11-32 [facility] Comment on above: Performed By: #### A MM ####[facility] Unopptbcqa403[address] [place], [place] [address]Dr. Chrissy Frazier CBC AUTO DIFFon 03-30-2022 BASO # 0.1 103/ul Normal 0.0-0.1 [facility] Comment on above: Performed By: #### C BC ####[facility] Cnbgqapjtl8894[address] [place], [place] [address]Dr. Chrissy Frazier Basophils/100 WBC (Bld) 0.5 % Normal 0.2-2.0 [facility] Comment on above: Performed By: #### C BC ####[facility] Ahqinuqtmi7748[address] [place], [place] [address]Dr. Chrissy Frazier EO # 0.1 103/ul Normal 0.0-0.7 [facility] Comment on above: Performed By: #### C BC ####[facility] Rpuydqzedw9557[address] [place], [place] [address]Dr. Chrissy Frazier Eosinophils/100 WBC (Bld) 1.1 % Normal 0.9-7.0 [facility] Comment on above: Performed By: #### C BC ####[facility] Nrfutljqru[address] [place], [place] [address]Dr. Chrissy Frazier Erythrocyte distribution width (RBC) [Ratio] 13.4 % Normal 11.0-15.0 [facility] Comment on above: Performed By: #### C BC ####[facility] Guiivmehrp6460[address] [place], [place] [address]Dr. Chrissy Frazier Hematocrit (Bld) [Volume fraction] 45.8 % Normal 42.0-54.0 [facility] Comment on above: Performed By: #### C BC ####[facility] Ioenctmczd634[address] [place], [place] [address]Dr. Chrissy Frazier Hemoglobin (Bld) [Mass/Vol] 14.9 g/dL Normal 14.0-18.0 [facility] Comment on above: Performed By: #### C BC ####[facility] Clpklwelrj8970 [place] [address]DrNancy Frazier IG # 0.05 10e3/ul Critically high 0.00-0.03 [facility] Comment on above: Performed By: #### C BC ####[facility] Hwvxqfxxgc0506 [place] [address]DrNancy Frazier IG % 0.5 % Normal 0.0-0.5 [facility] Comment on above: Performed By: #### C BC ####[facility] Dykmutgrrw9420[address] [place], [place] [address]DrNancy Frazier LYMPH # 3.0 103/ul Normal 1.2-3.8 [facility] Comment on above: Performed By: #### C BC ####[facility] Kvzaqcyqka55[address] [place], [place] [address]DrNancy Frazier Lymphocytes/100 WBC (Bld) 30.2 % Normal 20.5-60.0 [facility] Comment on above: Performed By: #### C BC ####[facility] Uolklzktvb3465[address] [place], [place] [address]DrNancy Frazier MANUAL DIFF REQ NO Normal [facility] Comment on above: Performed By: #### C BC ####[facility] Hivohuidye3287 [place] [address]DrNancy Frazier MCH (RBC) [Entitic mass] 28.4 pg Normal 25.9-34.0 [facility] Comment on above: Performed By: #### C BC ####[facility] Vkagncpcur3485 [place] [address]DrNancy Frazier MCHC (RBC) [Mass/Vol] 32.5 g/dL Normal 29.9-35.2 [facility] Comment on above: Performed By: #### C BC ####[facility] Atfixkmzqu4248[address] [place], [place] [address]DrNancy Frazier MCV (RBC) [Entitic vol] 87.4 fL Normal 80.0-94.0 [facility] Comment on above: Performed By: #### C BC ####[facility] Wuqvraobly5941 [place] [address]DrNancy Chrissy Freddie MONO # 0.8 103/ul Normal 0.3-0.8 [facility] Comment on above: Performed By: #### C BC ####[facility] Scetvbwfuh0292 [place] [address]DrNancy Frazier Monocytes/100 WBC (Bld) 7.9 % Normal 1.7-12.0 [facility] Comment on above: Performed By: #### C BC ####[facility] Pnlwhjundy964[address] [place], [place] [address]DrNancy Winstonrowan Freddie NEUT # 5.9 103/ul Normal 1.4-6.5 [facility] Comment on above: Performed By: #### C BC ####[facility] Ymtpupsqvu4364[address] [place], [place] [address]Dr. Chrissy Frazier Neutrophils/100 WBC (Bld) 59.8 % Normal 43.0-75.0 [facility] Comment on above: Performed By: #### C BC ####[facility] Mggpvdccqu9356[address] [place], [place] [address]DrNancy Tishrowan Frazier Platelet mean volume (Bld) [Entitic vol] 10.1 fL Normal 9.5-13.5 [facility] Comment on above: Performed By: #### C BC ####[facility] Ujpmavvrfg1524[address] [place], [place] [address]Dr. Chrissy Frazier PLT 320 103/ul Normal 150-450 [facility] Comment on above: Performed By: #### C BC ####[facility] Gaac[address]qob[address] [place], [place] [id number]. Chrissy Frazier RBC 5.24 106/ul Normal 4.70-6.10 [facility] Comment on above: Performed By: #### C BC ####[facility] Jtygenmhkz0468 [place] [id number] Frazier WBC 9.9 103/ul Normal 4.0-11.0 [facility] Comment on above: Performed By: #### C BC ####[facility] Hjmlyyllle7756 [place] [address]DrNancy Frazier PROF 14(COMP METB)on 022 Albumin [Mass/Vol] 3.9 g/dL Normal 3.4-5.0 [facility] Comment on above: Performed By: #### C MP ####[facility] Zppzeuqskp3146 [place] [address]Dr. Chrissy Frazier Albumin/Globulin [Mass ratio] 1.1 {ratio} Normal [facility] Comment on above: Performed By: #### C MP ####[facility] Lmjnitebsu3502 [place] [address]Dr. Chrissy Frazier ALP [Catalytic activity/Vol] 88 U/L Normal 46-116 [facility] Comment on above: Performed By: #### C MP ####[facility] Ueuqvjevhg1489 [place] [address]Dr. Chrissy Frazier ALT [Catalytic activity/Vol] 161 U/L Critically high 16-63 [facility] Comment on above: Performed By: #### C MP ####[facility] Qgyrdfmyof035[address] [place], [place] [address]Dr. Chrissy Frazier Anion gap [Moles/Vol] 12.3 mmol/L Normal [facility] Comment on above: Performed By: #### C MP ####[facility] Lnjinxslnt7411[address] [place], [place] [address]Dr. Chrissy Frazier AST [Catalytic activity/Vol] 64 U/L Critically high 15-37 [facility] Comment on above: Performed By: #### C MP ####[facility] Ntulnwmeus7382 [place] [address]DrNancy Frazier Bilirubin [Mass/Vol] 0.8 mg/dL Normal 0.2-1.0 [facility] Comment on above: Performed By: #### C MP ####[facility] Jnbyinzrnd5288 [place] [address]Dr. Chrissy Frazier Calcium [Mass/Vol] 8.4 mg/dL Critically low 8.5-10.1 e [facility] Comment on above: Performed By: #### C MP ####[facility] Nzygrpfihl5826 [place] [address]Dr. Chrissy Frazier Chloride [Moles/Vol] 103 mmol/L Normal 98-107 [facility] Comment on above: Performed By: #### C MP ####[facility] Rhylycsgxx9094 [place] [address]Dr. Chrissy Frazier CO2 [Moles/Vol] 26.5 mmol/L Normal 21.0-32.0 [facility] Comment on above: Performed By: #### C MP ####[facility] Ifjirkmhcl3323 [place] [address]Dr. Chrissy Frazier Creatinine [Mass/Vol] 1.24 mg/dL Normal 0.70-1.30 [facility] Comment on above: Performed By: #### C MP ####[facility] Hcgnhlujpt4[address] [place], [place] [address]Dr. Chrissy Frazier EGFR-AF [place] >60 Normal >=60 [facility] Comment on above: Performed By: #### C MP ####[facility] Wxmddbkkwt2015 [place] [address]Dr. Chrissy Frazier EGFR-NON AF [place] >60 Normal >=60 [facility] Comment on above: Performed By: #### C MP ####[facility] Sndnbgzhpc2566[address] [place], [place] [address]Dr. Chrissy Frazier Globulin (S) [Mass/Vol] 3.7 g/dL Normal [facility] Comment on above: Performed By: #### C MP ####[facility] Hynicjbaso0267 [place] [address]Dr. Chrissy Frazier Glucose [Mass/Vol] 108 mg/dL Critically high 74-[address] [facility] Comment on above: Performed By: #### C MP ####[facility] Qdvgnwwmvr7548 [place] [address]Dr. Chrissy Frazier Potassium [Moles/Vol] 3.8 mmol/L Normal 3.5-5.1 [facility] Comment on above: Performed By: #### C MP ####[facility] Ibwlqtqafl3107 [place] [address]Dr. Chrissy Frazier Protein [Mass/Vol] 7.6 g/dL Normal 6.4-8.2 [facility] Comment on above: Performed By: #### C MP ####[facility] Dkxnsneluj306[address] [place], [place] [address]Dr. Chrissy Frazier Sodium [Moles/Vol] 138 mmol/L Normal 136-145 [facility] Comment on above: Performed By: #### C MP ####[facility] Ickpnhqycd5669[address] [place], [place] [address]Dr. Chrissy Frazier Urea nitrogen [Mass/Vol] 12.0 mg/dL Normal 7.0-18.0 [facility] Comment on above: Performed By: #### C MP ####[facility] Fknjkcuvmr8237[address] [place], [place] [address]Dr. Chrissy Frazier Urea nitrogen/Creatinine [Mass ratio] 9.7 mg/mg Normal [facility] Comment on above: Performed By: #### C MP ####[facility] Krribegbzf6877[address] [place], [place] [address]Dr. Chrissy Frazier AMMONIAon 03-29-2022 Ammonia (P) [Moles/Vol] 27 umol/L Normal 11-32 [facility] Comment on above: Performed By: #### A MM ####[facility] Tfpgcdpxqz9934[address] [place], [place] [address]Dr. Chrissy Frazier AMYLASEon 03-29-2022 Amylase [Catalytic activity/Vol] 29 U/L Normal 25-115 [facility] Comment on above: Performed By: #### L IPA, TERRENCE ####[facility] Oavehhhily366[address] [place], [place] [address]Dr. Chrissy Freddie CBC AUTO DIFFon 03-29-2022 BASO # 0.0 103/ul Normal 0.0-0.1 [facility] Comment on above: Performed By: #### C BC ####[facility] Mqizidztyd7794[address] [place], [place] [address]Dr. Chrissy Freddie Basophils/100 WBC (Bld) 0.2 % Normal 0.2-2.0 [facility] Comment on above: Performed By: #### C BC ####[facility] Szpiinyfbj15[address] [place], [place] [address]Dr. Chrissy Frazier EO # 0.0 103/ul Normal 0.0-0.7 [facility] Comment on above: Performed By: #### C BC ####[facility] Azpdcrbltz734[address] [place], [place] [address]Dr. Chrissy Frazier Eosinophils/100 WBC (Bld) 0.4 % Critically low 0.9-7.0 [facility] Comment on above: Performed By: #### C BC ####[facility] Rdwthgttvy423350 [address] [place], [place] [address]Dr. Chrissy Frazier Erythrocyte distribution width (RBC) [Ratio] 13.6 % Normal 11.0-15.0 [facility] Comment on above: Performed By: #### C BC ####[facility] Yxuhbnnmbz7638[address] [place], [place] [address]Dr. Chrissy Frazier Hematocrit (Bld) [Volume fraction] 45.2 % Normal 42.0-54.0 [facility] Comment on above: Performed By: #### C BC ####[facility] Cyvvlolhbe929[address] [place], [place] [address]DrNancy Frazier Hemoglobin (Bld) [Mass/Vol] 14.8 g/dL Normal 14.0-18.0 [facility] Comment on above: Performed By: #### C BC ####[facility] Tameculhru929[address] [place], [place] [address]Dr. Chrissy Frazier IG # 0.03 10e3/ul Normal 0.00-0.03 [facility] Comment on above: Performed By: #### C BC ####[facility] Iwtljtgjyx9120[address] [place], [place] [address]Dr. Chrissy Frazier IG % 0.3 % Normal 0.0-0.5 [facility] Comment on above: Performed By: #### C BC ####[facility] Umznqwqcbf3960[address] [place], [place] [address]Dr. Chrissy Frazier LYMPH # 2.0 103/ul Normal 1.2-3.8 [facility] Comment on above: Performed By: #### C BC ####[facility] Rpymygnmhk0455 [place] [address]Dr. Chrissy Frazier Lymphocytes/100 WBC (Bld) 18.3 % Critically low 20.5-60.0 [facility] Comment on above: Performed By: #### C BC ####[facility] Olreprynca5659 [place] [address]Dr. Chrissy Frazier MANUAL DIFF REQ NO Normal [facility] Comment on above: Performed By: #### C BC ####[facility] Ermyknruna9499 [place] [address]Dr. Chrissy Frazier MCH (RBC) [Entitic mass] 28.5 pg Normal 25.9-34.0 [facility] Comment on above: Performed By: #### C BC ####[facility] Pbnolxjqnv8808[address] [place], [place] [address]Dr. Chrissy Frazier MCHC (RBC) [Mass/Vol] 32.7 g/dL Normal 29.9-35.2 [facility] Comment on above: Performed By: #### C BC ####[facility] Hmmqoookxg7909[address] [place], [place] [address]DrNancy Frazier MCV (RBC) [Entitic vol] 87.1 fL Normal 80.0-94.0 [facility] Comment on above: Performed By: #### C BC ####[facility] Tpukxupiaz9125[address] [place], [place] [address]Dr. Chrissy Frazier MONO # 0.9 103/ul Critically high 0.3-0.8 [facility] Comment on above: Performed By: #### C BC ####[facility] Jorxopxvno[address] [place], [place] [address]DrNancy Frazier Monocytes/100 WBC (Bld) 8.6 % Normal 1.7-12.0 [facility] Center Comment on above: Performed By: #### C BC ####[facility] Vleqwcxklr[address] [place], [place] [address]Dr. Chrissy Frazier NEUT # 7.8 103/ul Critically high 1.4-6.5 [facility] Comment on above: Performed By: #### C BC ####[facility] Snduhzklio8646 [place] [address]Dr. Chrissy Frazier Neutrophils/100 WBC (Bld) 72.2 % Normal 43.0-75.0 [facility] Comment on above: Performed By: #### C BC ####[facility] Xdttriwmei0916 [place] [address]Dr. Chrissy Frazier Platelet mean volume (Bld) [Entitic vol] 10.1 fL Normal 9.5-13.5 [facility] Comment on above: Performed By: #### C BC ####[facility] Vahiqqkmvg1208 [place] [address]Dr. Chrissy Frazier PLT 329 103/ul Normal 150-450 [facility] Comment on above: Performed By: #### C BC ####[facility] Ssdmcivjzp9681 [place] [address]Dr. Chrissy Frazier RBC 5.19 106/ul Normal 4.70-6.10 [facility] Comment on above: Performed By: #### C BC ####[facility] Qihmjcjwxc2976 [place] [address]Dr. Chrissy Frazier WBC 10.8 103/ul Normal 4.0-11.0 [facility] Comment on above: Performed By: #### C BC ####[facility] Imiknlywvt8138 [place] [address]Dr. Chrissy Freddie LIPASEon 03-29-2022 Lipase [Catalytic activity/Vol] 58.0 U/L Critically low 73.0-393.0 [facility] Comment on above: Performed By: #### L IPA, TERRENCE ####[facility] Igtucdkjfk[address] [place], [place] [address]Dr. Chrissy Freddie NM HEPATOBILIARY SCAN W EFon 03-29-2022 NM HEPATOBILIARY SCAN W EF Normal [facility] PROF 14(COMP METB)on 022 Albumin [Mass/Vol] 3.8 g/dL Normal 3.4-5.0 [facility] Comment on above: Performed By: #### C MP ####[facility] Dkapnhtblc5980 [place] [address]Dr. Chrissy Frazier Albumin/Globulin [Mass ratio] 1.0 {ratio} Normal [facility] Comment on above: Performed By: #### C MP ####[facility] Gqwdmnrsvj8396 [place] [address]Dr. Chrissy Frazier ALP [Catalytic activity/Vol] 69 U/L Normal 46-116 [facility] Comment on above: Performed By: #### C MP ####[facility] Pjhxajodgs27[address] [place], [place] [address]Dr. Chrissy Frazier ALT [Catalytic activity/Vol] 117 U/L Critically high 16-63 [facility] Comment on above: Performed By: #### C MP ####[facility] Wtjpsfjogd97[address] [place], [place] [address]Dr. Chrissy Frazier Anion gap [Moles/Vol] 16.7 mmol/L Normal [facility] Comment on above: Performed By: #### C MP ####[facility] Wlflqjrbak88[address] [place], [place] [address]Dr. Chrissy Frazier AST [Catalytic activity/Vol] 77 U/L Critically high 15-37 [facility] Comment on above: Performed By: #### C MP ####[facility] Iglkxveqbq8610[address] [place], [place] [address]Dr. Chrissy Frazier Bilirubin [Mass/Vol] 1.5 mg/dL Critically high 0.2-1.0 [facility] Comment on above: Performed By: #### C MP ####[facility] Mparbgjgup3257[address] [place], [place] [address]Dr. Chrissy Frazier Calcium [Mass/Vol] 8.1 mg/dL Critically low 8.5-10.1 [facility] Comment on above: Performed By: #### C MP ####[facility] Ojlwtmqdhy8087[address] [place], [place] [address]Dr. Chrissy Frazier Chloride [Moles/Vol] 101 mmol/L Normal 98-107 [facility] Comment on above: Performed By: #### C MP ####[facility] Kroajbgobh4037 [place] [id number]. Chrissy Frazier CO2 [Moles/Vol] 24.5 mmol/L Normal 21.0-32.0 [facility] Comment on above: Performed By: #### C MP ####[facility] Ibhfjodovc1204 [place] [address]Dr. Chrissy Frazier Creatinine [Mass/Vol] 1.17 mg/dL Normal 0.70-1.30 [facility] Comment on above: Performed By: #### C MP ####[facility] Kxnzljlkxh9624 [place] [address]Dr. Chrissy Frazier EGFR-AF [place]OU[place] >60 Normal >=60 [facility] Comment on above: Performed By: #### C MP ####[facility] Xjwmluvrup0814[address] [place], [place] [address]Dr. Chrissy Frazier EGFR-NON AF [place] >60 Normal >=60 [facility] Comment on above: Performed By: #### C MP ####[facility] Ljbcbwwkmd699[address] [place], [place] [address]Dr. Chrissy Frazier Globulin (S) [Mass/Vol] 3.9 g/dL Normal [facility] Comment on above: Performed By: #### C MP ####[facility] Tzfkmihzfu28[address] [place], [place] [address]Dr. Chrissy Frazier Glucose [Mass/Vol] 104 mg/dL Normal 74-106 [facility] Comment on above: Performed By: #### C MP ####[facility] Ytcsapcvdj6[address] [place], [place] [address]Dr. Chrissy Frazier Potassium [Moles/Vol] 3.2 mmol/L Critically low 3.5-5.1 [facility] Comment on above: Performed By: #### C MP ####[facility] Bcllosmkvq659[address] [place], [place] [address]Dr. Chrissy Frazier Protein [Mass/Vol] 7.7 g/dL Normal 6.4-8.2 [facility] Comment on above: Performed By: #### C MP ####[facility] Snsyiohjub6994 [place] [address]Dr. Chrissy Frazier Sodium [Moles/Vol] 139 mmol/L Normal 136-145 [facility] Comment on above: Performed By: #### C MP ####[facility] Vxmhluqaqm2156[address] [place], [place] [address]Dr. Chrissy Freddie Urea nitrogen [Mass/Vol] 11.0 mg/dL Normal 7.0-18.0 [facility] Comment on above: Performed By: #### C MP ####[facility] Dqtlsiarnb6346[address] [place], [place] [address]Dr. Chrissy Frazier Urea nitrogen/Creatinine [Mass ratio] 9.4 mg/mg Normal [facility] Comment on above: Performed By: #### C MP ####[facility] Wqfubulonu110[address] [place], [place] [address]Dr. Chrissy Frazier US SINGLE QUAD RT UPPERon US SINGLE QUAD RT UPPER Normal [facility] AMMONIAon 03-28-2022 Ammonia (P) [Moles/Vol] 12 umol/L Normal 11-32 [facility] Comment on above: Performed By: #### A MM ####[facility] Fcbgjtwugt27[address] [place], [place] [address]Dr. Chrissy Frazier CBC AUTO DIFFon 03-28-2022 BASO # 0.0 103/ul Normal 0.0-0.1 [facility] Comment on above: Performed By: #### C BC ####[facility] Ugehqtfqoj37[address] [place], [place] [address]Dr. Chrissy Frazier Basophils/100 WBC (Bld) 0.1 % Critically low 0.2-2.0 [facility] Comment on above: Performed By: #### C BC ####[facility] Yqoscofrof387[address] [place], [place] [address]Dr. Chrissy Frazier EO # 0.0 103/ul Normal 0.0-0.7 [facility] Comment on above: Performed By: #### C BC ####[facility] Oykqcptisp[address] [place], [place] [address]Dr. Chrissy Frazier Eosinophils/100 WBC (Bld) 0.0 % Critically low 0.9-7.0 [facility] Comment on above: Performed By: #### C BC ####[facility] Hzbtlhoklh58[address] [place], [place] [address]Dr. Chrissy Frazier Erythrocyte distribution width (RBC) [Ratio] 14.0 % Normal 11.0-15.0 [facility] Comment on above: Performed By: #### C BC ####[facility] Ykydxzgcaq7579[address] [place], [place] [address]Dr. Chrissy Frazier Hematocrit (Bld) [Volume fraction] 44.2 % Normal 42.0-54.0 [facility] Comment on above: Performed By: #### C BC ####[facility] Covyelthly[address] [place], [place] [address]Dr. Chrissy Frazier Hemoglobin (Bld) [Mass/Vol] 14.7 g/dL Normal 14.0-18.0 [facility] Comment on above: Performed By: #### C BC ####[facility] Mdgcygcetl3528[address] [place], [place] [address]Dr. Chrissy Frazier IG # 0.10 10e3/ul Critically high 0.00-0.03 [facility] Comment on above: Performed By: #### C BC ####[facility] Gxwgdnuhmv4330[address] [place], [place] [address]Dr. Chrissy Frazier IG % 0.5 % Normal 0.0-0.5 [facility] Comment on above: Performed By: #### C BC ####[facility] Czcjdxketq5439[address] [place], [place] [address]Dr. Chrissy Frazier LYMPH # 2.6 103/ul Normal 1.2-3.8 [facility] Comment on above: Performed By: #### C BC ####[facility] Dqjxwmsbzf433[address] [place], [place] [address]Dr. Chrissy Frazier Lymphocytes/100 WBC (Bld) 13.8 % Critically low 20.5-60.0 [facility] Comment on above: Performed By: #### C BC ####[facility] Sjhkajhrjv9[address] [place], [place] [address]Dr. Chrissy Frazier MANUAL DIFF REQ NO Normal [facility] Comment on above: Performed By: #### C BC ####[facility] Vidheihykj7978 [place] [address]Dr. Chrissy Frazier MCH (RBC) [Entitic mass] 29.0 pg Normal 25.9-34.0 [facility] Comment on above: Performed By: #### C BC ####[facility] Ayzsbvlvfg1825 [place] [address]Dr. Chrissy Frazier MCHC (RBC) [Mass/Vol] 33.3 g/dL Normal 29.9-35.2 [facility] Comment on above: Performed By: #### C BC ####[facility] Tbqlgxcqsn4230[address] [place], [place] [address]Dr. Chrissy Frazier MCV (RBC) [Entitic vol] 87.2 fL Normal 80.0-94.0 [facility] Comment on above: Performed By: #### C BC ####[facility] Lpvodzhvpw8[address] [place], [place] [address]DrNancy Frazier MONO # 1.1 103/ul Critically high 0.3-0.8 [facility] Comment on above: Performed By: #### C BC ####[facility] Hzgrmxkpep6776[address] [place], [place] [address]DrNancy Frazier Monocytes/100 WBC (Bld) 5.9 % Normal 1.7-12.0 [facility] Comment on above: Performed By: #### C BC ####[facility] Dqwsvgeefz[address] [place], [place] [address]DrNancy Frazier NEUT # 15.1 103/ul Critically high 1.4-6.5 [facility] Comment on above: Performed By: #### C BC ####[facility] Mxamaemrzq5737[address] [place], [place] [address]DrNancy Frazier Neutrophils/100 WBC (Bld) 79.7 % Critically high 43.0-75.0 [facility] Comment on above: Performed By: #### C BC ####[facility] Jvbepwpint139[address] [place], [place] [address]DrNancy Frazier Platelet mean volume (Bld) [Entitic vol] 10.3 fL Normal 9.5-13.5 [facility] Comment on above: Performed By: #### C BC ####[facility] Dxpzcxjxkw3863 [place] [address]Dr. Chrissy Frazier PLT 358 103/ul Normal 150-450 [facility] Comment on above: Performed By: #### C BC ####[facility] Nhyzcntwws3362 [place] [address]Dr. Chrissy Frazier RBC 5.07 106/ul Normal 4.70-6.10 [facility] Comment on above: Performed By: #### C BC ####[facility] Ktjaugvcvw3271 [place] [address]Dr. Chrissy Frazier WBC 18.9 103/ul Critically high 4.0-11.0 [facility] Comment on above: Performed By: #### C BC ####[facility] Klwhmaciet9584 [place] [address]DrNancy Frazier PROF 14(COMP METB)on 022 Albumin [Mass/Vol] 3.9 g/dL Normal 3.4-5.0 [facility] Comment on above: Performed By: #### C MP ####[facility] Qhqwxegqyv13[address] [place], [place] [address]Dr. Chrissy Frazier Albumin/Globulin [Mass ratio] 1.1 {ratio} Normal [facility] Comment on above: Performed By: #### C MP ####[facility] Zgjakahumd8675 [place] [address]Dr. Chrissy Frazier ALP [Catalytic activity/Vol] 65 U/L Normal 46-116 [facility] Comment on above: Performed By: #### C MP ####[facility] Cbpxoqffvt0242 [place] [address]DrNancy Frazier ALT [Catalytic activity/Vol] 46 U/L Normal 16-63 [facility] Comment on above: Performed By: #### C MP ####[facility] Wnziuzralc7[address] [place], [place] [address]DrNancy Frazier Anion gap [Moles/Vol] 13.2 mmol/L Normal [facility] Comment on above: Performed By: #### C MP ####[facility] Vurdzbvagt7782 [place] [address]Dr. Chrissy Frazier AST [Catalytic activity/Vol] 33 U/L Normal 15-37 [facility] Comment on above: Performed By: #### C MP ####[facility] Papzorvecf135[address] [place], [place] [address]Dr. Tishrowan Freddie Bilirubin [Mass/Vol] 0.8 mg/dL Normal 0.2-1.0 [facility] Comment on above: Performed By: #### C MP ####[facility] Vmdonncryb079[address] [place], [place] [address]Dr. Chrissy Frazier Calcium [Mass/Vol] 8.1 mg/dL Critically low 8.5-10.1 [facility] Comment on above: Performed By: #### C MP ####[facility] Fdhtruvqtp858[address] [place], [place] [address]Dr. Chrissy Frazier Chloride [Moles/Vol] 102 mmol/L Normal 98-107 [facility] Comment on above: Performed By: #### C MP ####[facility] Rkwdqtkwkw112[address] [place], [place] [address]Dr. Chrissy Freddie CO2 [Moles/Vol] 24.0 mmol/L Normal 21.0-32.0 [facility] Comment on above: Performed By: #### C MP ####[facility] Ryawtzpqbq3743[address] [place], [place] [address]Dr. Tishrowan Freddie Creatinine [Mass/Vol] 1.26 mg/dL Normal 0.70-1.30 [facility] Comment on above: Performed By: #### C MP ####[facility] Csjfwrxyng672[address] [place], [place] [address]Dr. Chrissy Frazier EGFR-AF [place] >60 Normal >=60 [facility] Comment on above: Performed By: #### C MP ####[facility] Bbjgyczbqo144[address] [place], [place] [address]Dr. Chrissy Frazier EGFR-NON AF [place] >60 Normal >=60 [facility] Comment on above: Performed By: #### C MP ####[facility] Qmyfuwcxmp2266 [place] [address]Dr. Chrissy Frazier Globulin (S) [Mass/Vol] 3.7 g/dL Normal [facility] Comment on above: Performed By: #### C MP ####[facility] Lkhtfuuxyj2282 [place] [address]Dr. Chrissy Frazier Glucose [Mass/Vol] 119 mg/dL Critically high 74-106 [facility] Comment on above: Performed By: #### C MP ####[facility] Byzgahyujb2264 [place] [address]Dr. Chrissy Freddie Potassium [Moles/Vol] 3.2 mmol/L Critically low 3.5-5.1 [facility] Comment on above: Performed By: #### C MP ####[facility] Pcasceyfus13[address] [place], [place] [address]Dr. Chrissy Freddie Protein [Mass/Vol] 7.6 g/dL Normal 6.4-8.2 [facility] Comment on above: Performed By: #### C MP ####[facility] Kclakvxdwg8218[address] [place], [place] [address]Dr. Chrissy Freddie Sodium [Moles/Vol] 136 mmol/L Normal 136-145 [facility] Comment on above: Performed By: #### C MP ####[facility] Majqbaaiqs877[address] [place], [place] [address]Dr. Chrissy Freddie Urea nitrogen [Mass/Vol] 14.0 mg/dL Normal 7.0-18.0 [facility] Comment on above: Performed By: #### C MP ####[facility] Zylzivrcao5027[address] [place], [place] [address]Dr. Chrissy Freddie Urea nitrogen/Creatinine [Mass ratio] 11.1 mg/mg Normal [facility] Comment on above: Performed By: #### C MP ####[facility] Vppejpagcr2361 [place] [address]Dr. Chrissy Freddie CBC W MANUAL DIFFon 03-27-20 22 ATYPICAL LYMPH # Normal [facility] Comment on above: Performed By: #### C ANTONETTE ####[facility] Gbdbpuzzya6069 [place] [id number]. Yilan Frazier ATYPICAL LYMPH % Normal [facility] Comment on above: Performed By: #### C ANTONETTE ####[facility] Ibsikiprlo6703 [place] [address]Dr. Yilan Frazier BAND # 0.0 103/ul Normal 0.0-0.3 [facility] Comment on above: Performed By: #### C ANTONETTE ####[facility] Beobvacnka4190 [place] [address]Dr. Yilan Frazier BAND % 0 % Normal 0-5 [facility] Comment on above: Performed By: #### C ANTONETTE ####[facility] Bhpdjpjyyo5061 [place] [address]Dr. Yirowan Frazier BASOM # 0.00 103/ul Normal 0.00-0.10 [facility] Comment on above: Performed By: #### C ANTONETTE ####[facility] Apynximqlw12[address] [place], [place] [address]Dr. Yirowan Frazier BASOM % 0.0 % Critically low 0.2-2.0 [facility] Comment on above: Performed By: #### C ANTONETTE ####[facility] Phzngjdgtu7041 [place] [address]Dr. Yilan Frazier BLAST # Normal [facility] Comment on above: Performed By: #### C ANTONETTE ####[facility] Xgovxcspic90[address] [place], [place] [address]Dr. Yilan Frazier BLAST % Normal [facility] Comment on above: Performed By: #### C ANTONETTE ####[facility] Ibiofbblhz1400 [place] [id number]. Chrissy Frazier CORRECTED WBC Normal 4.0-11.0 [facility] Comment on above: Performed By: #### C ANTONETTE ####[facility] Uwswpskuai[address] [place], [place] [id number]. Yilan Frazier EOS # 0.00 103/ul Normal 0.00-0.70 [facility] Comment on above: Performed By: #### C ANTONETTE ####[facility] Alvugnxolg2063 [place], [place] [address]Id. Chrissy Frazier EOS% 0.0 % Critically low 0.9-7.0 [facility] Comment on above: Performed By: #### C ANTONETTE ####[facility] Qungoktvqx4567 [place], [place] [address]Th. Chrissy Frazier HCT 47.3 % Normal 42.0-54.0 [facility] Comment on above: Performed By: #### C ANTONETTE ####[facility] Jlthdyllzo7225 [place], [place] [address]Wt. Chrissy Frazier HGB 16.4 g/dl Normal 14.0-18.0 [facility] Comment on above: Performed By: #### C ANTONETTE ####[facility] Csrdwewrhg9614 [place] [id number]. Chrissy Frazier LYMPHM # 2.31 103/ul Normal 1.20-3.80 [facility] Comment on above: Performed By: #### C ANTONETTE ####[facility] Vpkdenmvfd9904 [place] [id number]. Chrissy Frazier LYMPHM% 9.0 % Critically low 20.5-60.0 [facility] Comment on above: Performed By: #### C ANTONETTE ####[facility] Rbvpqicpik2574 [place] [id number]. Chrissy Frazier MCH 28.6 pg Normal 25.9-34.0 [facility] Comment on above: Performed By: #### C ANTONETTE ####[facility] Rnwigmlhjp7388 [place], [place] [address]Rs. Chrissy Frazier MCHC 34.7 g/dl Normal 29.9-35.2 [facility] Comment on above: Performed By: #### C ANTONETTE ####[facility] Jmmzbwtbnu8387 [place] [id number]. Chrissy Frazier MCV 82.4 fL Normal 80.0-94.0 [facility] Comment on above: Performed By: #### C ANTONETTE ####[facility] Uvybomevct8702 [place], [place] [address]Xv. Chrissy Frazier METAMYELOCYTE # Normal [facility] Comment on above: Performed By: #### C BCMAN ####[facility] Bkkrpmkhpc9953 [place], [place] [address]Kd. Chrissy Freddie METAMYELOCYTE % Normal [facility] [place] [facility] Comment on above: Performed By: #### C BCLEANDRO ####[facility] Vvskbnfqbh9131 [place] [id number]. Tishrowan Freddie MONOM# 3.85 103/ul Critically high 0.30-0.80 [facility] Comment on above: Performed By: #### C ANTONETTE ####[facility] Usptaacgvf7345 [place] [id number]. Tishrowan Freddie MONOM% 15.0 % Critically high 1.7-12.0 [facility] Comment on above: Performed By: #### C ANTONETTE ####[facility] Vnxvdpleey6[address] [place], [place] [id number]. Chrissy Frazier MPV 10.6 fL Normal 9.5-13.5 [facility] Comment on above: Performed By: #### C BCMAN ####[facility] Eymhiuvfuz60[address] [place], [place] [id number]. Chrissy Frazier MYELOCYTE # Normal [facility] Comment on above: Performed By: #### C ANTONETTE ####[facility] Edkivsrhuh8662 [place], [place] [address]Dc. Chrissy Frazier MYELOCYTE % Normal [facility] Comment on above: Performed By: #### C BCLEANDRO ####[facility] Jodlkzkbxz2547 [place] [id number]. Chrissy Frazier NRBC Normal [facility] Comment on above: Performed By: #### C BCMAN ####[facility] Dgwmloycqq2886 [place] [id number]. Tishrowan Freddie PLT 471 103/ul Critically high 150-450 [facility] [place] [facility] Comment on above: Performed By: #### C BCMAN ####[facility] Iyyzxkdswc25[address] [place], [place] [id number]. Chrissy Frazier RBC 5.74 106/ul Normal 4.70-6.10 [facility] Comment on above: Performed By: #### C ANTONETTE ####[facility] Zoiipwntas9127 [place] [id number] Frazier RDW 13.7 % Normal 11.0-15.0 [facility] Comment on above: Performed By: #### C ANTONETTE ####[facility] Uwsletjowt4280 [place] [id number]. Chrissy Frazier SEG # 19.53 103/ul Critically high 1.40-6.50 [facility] Comment on above: Performed By: #### C ANTONETTE ####[facility] Jxplksxibs4366 [place] [address]Dr. Chrissy Frazier SEG % 76.0 % Critically high 43.0-75.0 [facility] [place] [facility] Comment on above: Performed By: #### C ANTONETTE ####[facility] Ikejrbhgbv9837 [place] [id number]. Chrissy Frazier TOXIC GRANULATION SLIGHT Normal [facility] Comment on above: Result Comment: few vacoules Performed By: #### Silverio WHITMAN ####[facility] Yxebfdsojk[address] [place], [place] [id number] Chrissy Frazier WBC 25.7 103/ul Critically high 4.0-11.0 [facility] Comment on above: Performed By: #### Silverio WHITMAN ####[facility] Lbxoyezxqc2685 [place] [id number] Chrissy Freddie LACTATE/LACTIC ACIDon 2021 Lactate [Moles/Vol] 2.4 mmol/L Critically high 0.4-1.9 [facility] Comment on above: Performed By: #### L ACT ####[facility] [address] [place], [place] [id number] Chrissy Freddie Lactate [Moles/Vol] 3.5 mmol/L Critically high 0.4-1.9 [facility] Comment on above: Performed By: #### L ACT ####[facility] [address] [place], [place] [id number] Chrissy Frazier LIPASEon 03-27-2022 Lipase [Catalytic activity/Vol] 43.0 U/L Critically low 73.0-393.0 [facility] Comment on above: Performed By: #### C MP, LIPA ####[facility] [address] [place] [address]Dr. Chrissy Frazier PROF 14(COMP METB)on 022 Albumin [Mass/Vol] 4.7 g/dL Normal 3.4-5.0 [facility] Comment on above: Performed By: #### C MP, LIPA ####[facility] [address] [place] [address]Dr. Chrissy Frazier Albumin/Globulin [Mass ratio] 1.1 {ratio} Normal [facility] Comment on above: Performed By: #### C MANA, LIPA ####[facility] [address] [place] [address]Dr. Chrissy Frazier ALP [Catalytic activity/Vol] 69 U/L Normal 46-116 [facility] Comment on above: Performed By: #### C MP, LIPA ####[facility] [address] [place] [address]Dr. Chrissy Frazier ALT [Catalytic activity/Vol] 47 U/L Normal 16-63 [facility] Comment on above: Performed By: #### C MP, LIPA ####[facility] [address] [place] [address]Dr. Chrissy Frazier Anion gap [Moles/Vol] 23.2 mmol/L Normal [facility] Comment on above: Performed By: #### C MP, LIPA ####[facility] [address] [place] [address]Dr. Chrissy Frazier AST [Catalytic activity/Vol] 23 U/L Normal 15-37 [facility] Comment on above: Performed By: #### C MP, LIPA ####[facility] [address] [place] [address]Dr. Chrissy Frazier Bilirubin [Mass/Vol] 0.7 mg/dL Normal 0.2-1.0 [facility] Comment on above: Performed By: #### C MP, LIPA ####[facility] [address] [place] [address]Dr. Tishrowan Frazier Calcium [Mass/Vol] 9.2 mg/dL Normal 8.5-10.1 [facility] Comment on above: Performed By: #### C MP, LIPA ####[facility] [address] [place] [address]Dr. Tishrowan Frazier Chloride [Moles/Vol] 97 mmol/L Critically low 98-107 [facility] Comment on above: Performed By: #### C MP, LIPA ####[facility] [address] [place], [place] [address]Dr. Chrissy Frazier CO2 [Moles/Vol] 18.2 mmol/L Critically low 21.0-32.0 [facility] Comment on above: Performed By: #### C MP, LIPA ####[facility] [address] [place], [place] [address]Dr. Chrissy Frazier Creatinine [Mass/Vol] 1.77 mg/dL Critically high 0.70-1.30 [facility] Comment on above: Performed By: #### C MP, LIPA ####[facility] [address] [place], [place] [address]Dr. Chrissy Frazier EGFR-AF [place] 54 mL/min/1.73m2 Critically low >=60 [facility] Comment on above: Performed By: #### C MP, LIPA ####[facility] [address] [place], [place] [address]Dr. Chrissy Frazier EGFR-NON AF [place] 45 mL/min/1.73m2 Critically low >=60 [facility] Comment on above: Performed By: #### C MP, LIPA ####[facility] [address] [place], [place] [address]Dr. Chrissy Frazier Globulin (S) [Mass/Vol] 4.4 g/dL Normal [facility] Comment on above: Performed By: #### C MP, LIPA ####[facility] [address] [place], [place] [address]Dr. Chrissy Frazier Glucose [Mass/Vol] 131 mg/dL Critically high 74-106 [facility] Comment on above: Performed By: #### C MANA, LIPA ####[facility] [address] [place] [address]Dr. Chrissy Frazier Potassium [Moles/Vol] 3.4 mmol/L Critically low 3.5-5.1 [facility] Comment on above: Performed By: #### C MANA, LIPA ####[facility] [address] [place] [address]Dr. Chrissy Frazier Protein [Mass/Vol] 9.1 g/dL Critically high 6.4-8.2 [facility] Comment on above: Performed By: #### C MANA, LIPA ####[facility] [address] [place] [address]Dr. Chrissy Frazier Sodium [Moles/Vol] 135 mmol/L Critically low 136-145 [facility] Comment on above: Performed By: #### C MANA, LIPA ####[facility] [address] [place] [address]Dr. Chrissy Frazier Urea nitrogen [Mass/Vol] 19.0 mg/dL Critically high 7.0-18.0 [facility] Comment on above: Performed By: #### C MANA, LIPA ####[facility] [address] [place] [address]Dr. Chrissy Frazier Urea nitrogen/Creatinine [Mass ratio] 10.7 mg/mg Normal [facility] Comment on above: Performed By: #### C MANA, LIPA ####[facility] [address] [place] [address]Dr. Chrissy Frazier BMPon 11-03-2020 Anion gap [Moles/Vol] 14 mmol/L Normal 6-16 [facility] Comment on above: Performed By: #### 2 [id number], [id number], [id number] #### [facility] [address] [place] [address] Calcium [Mass/Vol] 9.0 mg/dL Normal 8.9-11.1 [facility] Comment on above: Performed By: #### 2 [id number], [id number], [id number] #### [facility] [address] [place] [address] Chloride [Moles/Vol] 104 mmol/L Normal 101-111 [facility] Comment on above: Performed By: #### 2 910180, [id number], [id number] #### [facility] [address] [place] [address] CO2 [Moles/Vol] 21 mmol/L Normal 21-31 [facility] Comment on above: Performed By: #### 2 121866, [id number], [id number] #### [facility] [address] [place] [address] Creatinine [Mass/Vol] 1.3 mg/dL Normal 0.5-1.3 [facility] Comment on above: Performed By: #### 2 584593, [id number], [id number] #### [facility] [address] [place] [address] Glucose [Mass/Vol] 111 mg/dL Normal 55-199 [facility] Comment on above: Result Comment: If t his glucose result represents a fasting glucose, interpretation should refer to the following reference range: 55-99 mg/dL Performed By: #### 2 [id number], [id number], [id number] #### [facility] [address] [place] [address] Potassium [Moles/Vol] 2.9 mmol/L Low 3.5-5.3 [facility] Comment on above: Performed By: #### 2 844623, [id number], [id number] #### [facility] [address] [place] [address] Sodium [Moles/Vol] 136 mmol/L Normal 135-145 [facility] Comment on above: Performed By: #### 2 307628, 4610034, [id number] #### [facility] [address] [place] [address] Urea nitrogen [Mass/Vol] 14 mg/dL Normal 5-21 [facility] Comment on above: Performed By: #### 2 438714, 3694300, [id number] #### [facility] [address] [place] [address] Urea nitrogen/Creatinine [Mass ratio] 11 No Units Normal 10-20 [facility] Comment on above: Performed By: #### 2 683486, 0056814, [id number] #### [facility] [address] [place] [address] Lipase Levelon 11-03-2020 Lipase [Catalytic activity/Vol] 66 unit/L High 13-58 [facility] Comment on above: Performed By: #### 2 063006, [id number], [id number] #### [facility] [address] [place] [address] Physician Orderon 11-03-2020 Physician Order [id number]# 1.00CD:127 Normal [facility] eGFRon 11-03-2020 GFR/1.73 sq M predicted among blacks MDRD (S/P/Bld) [Vol rate/Area] mL/min/{1.73_m2} Normal >=59 [facility] Comment on above: Order Comment: Order added by Discern Expert. Result Comment: eGFR is race adjusted. AA=. Performed By: #### 2 759649, 3474076, [id number] #### [facility] [address] [place] [address] GFR/1.73 sq M predicted among non-blacks MDRD (S/P/Bld) [Vol rate/Area] mL/min/{1.73_m2} Normal >=59 [facility] Comment on above: Order Comment: Order added by Discern Expert. Result Comment: Green Building Architect lindsay kidney disease could be indicated at eGFR's of less than 60 mL/min/1.73m2. Kidney failure is indicated at less than 15 mL/min/1.73m2. Performed By: #### 2 866023, [id number], [id number] #### [facility] [address] [place] [address] Vital Signs Date Time Vital Sign Value Performing Clinician Sanjana anthony 07-19-2025 08:37-0400 Body height 177.8 cm Melody Mario MD Work Phone: [facility] 07-19-2025 08:37-0400 Body mass index (BMI) [Ratio] 40.1 kg/m2 Melody Mario MD Work Phone: [facility] 07-19-2025 08:37-0400 Body weight 127 kg Melody Mario MD Work Phone: [facility] Encounters Encounter Date Encounter Type Care Provider Facility Start: 07-19-2025 End: 07-19-2025 ambulatory Melody Mario MD Work Phone: [facility] Work Phone: Start: 07-19-2025 End: 07-19-2025 Patient encounter procedure Hugh Brown DO -[facility] Work Phone: Start: 07-08-2025 End: 07-08-2025 ambulatory Melody Mario MD Work Phone: [facility] Work Phone: Start: 07-08-2025 End: 07-08-2025 Patient encounter procedure Jun Griffin MD -[facility] Work Phone: Start: 04-16-2025 End: 04-16-2025 Subsequent hospital visit by physician Luh Bose 1 Work Phone: Radiology Comment on above: Right shoulder pain, unspecified chronicity [M25.511] Start: 04-16-2025 End: 04-16-2025 [facility] above[facility] Start: 04-16-2025 End: 04-16-2025 Patient encounter procedure [facility] Comment on above: Rotator cuff tendini tis, right (Primary Dx); Arthritis of right shoulder; AC joint arthropathy; History of repair of right rotator cuff; Right shoulder pain, unspecified chronicity Start: 12-04-2024 End: 12-04-2024 Office outpatient visit 15 minutes Tung Luis A PA Work Phone: [facility] Comment on above: Tinea versicolor (Pr imary Dx) Start: 12-04-2024 End: 12-04-2024 ambulatory TUNG YANDELM Not Available Start: 12-04-2024 End: 12-04-2024 Bamboo flowsheet Tung Gunn PA Work Phone: [facility] Start: 12-04-2024 End: 12-04-2024 Bamboo flowsheet Tungrohan Gunn PA Work Phone: [facility] Start: 05-16-2024 End: 05-16-2024 ambulatory TUNGANA GUNN Not Available Start: 03-07-2024 End: 03-07-2024 ambulatory TUNGANA GUNN Not Available Start: 01-03-2023 End: 01-04-[address] MELODY MARIO . Facility:[facility] Start: 01-03-2023 End: 01-04-2023 [facility] Start: 12-29-2022 End: 12-30-[address] MELODY MARIO . Facility:[facility] Start: 12-13-2022 End: 12-14-2022 ambulatory [facility] Start: 11-24-2022 End: 11-24-2022 ambulatory [facility] Start: 11-16-2022 End: 11-17-2022 ambulatory [...] 03-31-[address] MELODY MARIO . Facility: Procedures Date Procedure Procedure Detail Performing Clinician Start: 07-08-2025 Plain X-ray of right shoulder Melody aMrio MD Work Phone: Start: 04-16-2025 Radex shoulder complete minimum 2 views Palmer Shea PA-C Work Phone: History of repair of musculotendinous cuff of shoulder History of repair of right rotator cuff Palmer Shea PA-C Work Phone: Plan of Treatment Date Care Activity Detail Author Start: 07-22-2025 Influenza vaccination Influenz a Vaccine (Season Ended) [facility] Start: 07-08-2025 Plain X-ray of right shoulder XR shoulder RT min 2V* [facility] Start: 07-08-2025 XR Shoulder - right Views [facility] Start: 02-01-2025 End: 02-01-2025 Patient encounter procedure 02/01/2025 1:20 PM EDT Office Visit [facility] [address] [place] [address] Tung Gunn PA [address] [place] [address] [facility] Start: 2025 Lipid panel Lipid Screening [facility] Start: 12-04-2024 End: 12-04-2024 Patient encounter procedure 12/04/2024 2:50 PM EST Office Visit [facility] [address] [place] [address] Tung Gunn PA [address] [place] [address] Arrived [facility] Comment on above: Arrived Start: 07-22-2024 Covid-19 Vaccine ( season) Covid-19 Vaccine ( season) [facility] Start: 07-22-2024 Influenza vaccination Influenza Vacc ine (#1) [facility] Start: 2009 Hepatitis B Vaccine (1 of 3 - 19+ 3-dose series) Hepatitis B Vaccine (1 of 3 - 19+ 3-dose series) [facility] Start: 01-21-2008 Anxiety Screening Anxiety Screening [facility] Start: 01-21-2008 Depression Screening Depression Scre ening [facility] Start: 01-21-2008 Hepatitis C screening Hepatitis C Sc reening [facility] Start: 01-21-2008 HIV screening HIV Screening [facility] Start: 2001 Urine microalbumin profile DTaP,Tdap,Td Vaccine (5 - Tdap) [facility] Immunizations Immunization Date Immunization Notes Care Provider Fa cility 09-03-2022 influenza virus vacc ine, unspecified formulation Tung ISAACS Work Phone: [facility] Healthcare Payers Date Payer Category Payer Private Health Insurance [id number] 1990 Unknown [id number] 1990 Unknown [id number] [id number] 1990 Unknown [id number] [id number] 1990 Unknown [id number] [id number] 1990 Unknown [id number] 2.16.840.1.821865.3.579.2.593 1990 Unknown [id number] 2.16.840.1.019791.3.579.2.593 1990 Unknown [id number] 2.16.840.1.091744.3.579.2.593 1990 Unknown [id number] 2.16.840.1.863040.3.579.2.593 1990 Unknown [id number] 2.16.840.1.967741.3.579.2.593 1990 Unknown [id number] 2.16.840.1.095180.3.579.2.593 1990 Unknown [id number] 2.16.840.1.721130.3.579.2.593 1990 Unknown [id number] 2.16.840.1.696512.3.579.2.593 1990 Unknown [id number] 2.16.840.1.803044.3.579.2.593 1990 Unknown [id number] 2.16.840.1.187811.3.579.2.1259 1990 Unknown [id number] 2.16.840.1.354563.3.579.2.1259 1990 Unknown [id number] [id number] 1959 Private Health Insurance [id number] Unknown [facility] [id number] Social History Date Type Detail Facility Start: 03-24-2020 End: 03-07-2024 Tobacco smoking status MNIS Never smoked tobacco [facility] Start: 03-07-2024 Tobacco use and exposure Smokeless tobacco non-user [facility] Start: 12-04-2024 End: 04-16-2025 History of Social function [facility] Start: 12-04-2024 End: 04-16-2025 Tobacco use panel [facility] Start: 1990 Sex assigned at Not on file [facility] Start: 09-28-2007 Alcoholic beverage intake Not Asked [facility] National Score (1-100), lower number is lower risk 80 [facility] Sex Male (finding) [facility] Start: 1990 Sex Assigned At Male F [facility] Clinical Notes 11-24-2022 to 07-08-2025 Note Date & Type Note Facility 07-08-2025 Evaluation note Diagnosis Onset Date Resolution Acute pain of right shoulder acute July 08 11:08am Arthritis of right shoulder acute July 08 11:08am Right rotator cuff tear acute July 08 11:08am [facility] Work Phone: 1(550) 464-198208-18-2025 Evaluation note* Diagnosis Onset Date Resolution Status Admit Date Acute pain of right shoulder acute July 08, 2025 11:08am Arthritis of right shoulder acute July 08, 2025 11:08am Right rotator cuff tear acute A ugust 2024 11:08am Acute pain of right shoulder acute July 19, 2025 8:01am Arthritis of right shoulder acute July 19, 2025 8:01am Right rotator cuff tear acute A ugust 2024 8:01am [facility] Work Phone: 1(399) 977-251605-27-2025 NoteHNO ID: [id number] Author: PALMER SHEA PA-C Service: ? Author Type: Physician Trade Show Manager Type: Progress Notes Filed: 04/16/2025 15:07 Note [...] Duration Units: Years Frequency: Continuous Intervention/Comfort measure: Reposition;Relaxation;Medication;Positioning;Cold HISTORY: Paulina is a 35-year-old male presenting [...] 16 years old by a doctor in [place], and the second surgery was performed a year later by Dr. Carrion in [place]. The second surgery is where the repair [...] joint IMPRESSION: Encounter Diagn (more content not included)...[facility] 04-16-2025 History of Present illness Narrative* Palmer Shea PA-C - 04/16/2025 2:35 PM EDT This document has been created with the [...] hand dominant male who presents today for newevaluation of right shoulder. HISTORY OF PRESENT ILLNESS: PAIN EVALUATION 04/16/2025 1433 Pain Level: 7 Pain Location: Shoulder-Right Description: Aching;Sharp Duration Amount of Time: 2 Duration Units: Years Frequency: Continuous Intervention/Comfort measure: Reposition;Relaxation;Medication;Positioning;Cold HISTORY: Paulina is a 35-year-old male presenting with chronic right shoulder pain. Paulina reports chronic right shoulder pain, which is tender to palpation and radiates around the shoulder area. He also experiences pain in the posterior aspect of the shoulder. The pain is exacerbatedby certain movements, such as those performed during a recent x-ray, and he reports a sensation of the shoulder slipping out of place frequently. He denies any recent activities that may have triggered the pain but mentions a history of playing flag football and working out, which he believes mayhave contributed to the issue. Paulina has a history of two shoulder surgeries in his teenage years due to a football injury, including a rotator cuff repair and a possible labrum repair. The first surgery was performed when he was 16 years old by a doctor in [place], and the second surgery was performed a year later by Dr. Carrion in [place]. The second surgery is where the repair occurred. He does not feel he has full range of motion or strength in his right shoulder, noting significant pain with certain movements. He has been managing the pain with ice and ibuprofen. He also reports ahistory of six cortisone injections in his shoulder at the age of 22. He denies any issues with hisleft shoulder, although he mentions it hurts a [...] involving rotator cuff tendinitis, AC joint arthropathy, girma history of rotator cuff repair. MRI reveals a high-grade partial undersurface tear of the infraspinatus, significant AC joint degenerative changes, chondromalacia of the glenoid, and arthritis in the shoulder joint. Physical exam demonstrates tenderness over the AC joint and rotator cuff capsule,with some weakness in the infraspinatus muscle. No evidence of shoulder instability or dislocation.X-ray shows post-traumatic arthritis and a metallic screw [...] progress. Palmer Shea PA-C documented [facility] NoteHNO ID: [id number] Author: JANET SO Tech Service: ? Author Type: Trainmaster Type: Progress Notes Filed: 04/16/2025 14:30 Note [...] PATIENT PRESENTS WITH AN IMPLANTABLE OR ATTACHED PACKING HOUSE LABORER: No RADIOLOGY DEPARTMENT: General X-ray: Exam(s) Completed: Upper Extremity X-Ray(s): Shoulder, AP / TRUE AP / AXILLARY / SUPRA OUTLET right PERIPHERAL IV DATA: Not applicable SIGNED BY: Torres Carrington April 16, 2025 2:29 [facility]05-27-2025 History of Present illness Narrative* Janet So Tech - 04/16/2025 2:29 PM EDT Radiology Service Progress Note PATIENT NAME: Paulina Montero DATE OF SERVICE: April 16, 2025 TIME: 2:29 PM PATIENT IDENTITY VERIFICATION COMPLETED USING TWO (2) IDENTIFIERS: Name and Date of confirmedby patient verbally. FALL SCREENING: Has the patient had 2 falls in the last year or 1 fall with injury or currently using an Ambulatory Assistive Device (Walker, Cane, Wheelchair, Crutches, etc.)? No PATIENT GENDER DATA: Assigned male at PATIENT RELEVANT IMPLANT DATA REVIEWED: Not Applicable PATIENT PRESENTS WITH AN IMPLANTABLE OR ATTACHED PACKING HOUSE LABORER: No RADIOLOGY DEPARTMENT: General X-ray: Exam(s) Completed: Upper Extremity X- Ray(s): Shoulder, AP / TRUE AP / AXILLARY / SUPRA OUTLET right PERIPHERAL IV DATA: Not applicable SIGNED BY: Torres Carrington April 16, 2025 2:29 PM documented in this encounterC[facility]01-14-2025 History of Present illness Narrative* SHITAL Naranjo - 12/04/2024 2:50 PM EST Follow up Diagnosis: Tinea Versicolor Location: generalized [...] Next Visit: 2 months [id number] NoteCardiology Clinic Note Chief Complaint: new patient for abnormal stress [...] risk factor modification -Plan (more content not included)...[facility] 11-24-2022 NoteNew patient here to establish care. Ref from [...] light-headedness. All other systems reviewed and are negative.[facility] Evaluation note* Diagnosis Tinea versicolor- Primary Pityriasis versicolor documented in this encounter [facility] Healthcare[facility] note* Diagnosis Right shoulder pain, unspecified chronicity Rotator cuff tendinitis, right- Primary Arthritis of right shoulder AC joint arthropathy Unspecified disorder of shoulder joint History of repair of right rotator cuff Personal history of surgery to other organs Right shoulder pain, unspecified chronicity [facility] Right [facility] pain, unspecified chronicity [facility] Diagnosis Onset Date Resolution Status Admit Date Acute pain of right shoulder acute July 08, 2025 11:08am Arthritis of right shoulder acute July 08, 2025 11:08am Right rotator cuff tear acute A ugust 2024 11:08am [facility] Work Phone: reason for referral (narrative)No reason for referral information availableUc Health Work Phone: reason for visit Narrative* Diagnostic Procedure Only (Routine) - Closed Specialty Diagnoses / Procedures Referred By Contac t Referred To Contact XR IMAGING Diagnoses Right shoulder pain, unspecified chronicity Procedures XR SHOULDER ORTHO 4V AP/TRUE AP/LAT/OUTLET RIGHT RADEX SHOULDER COMPLETE MINIMUM 2 VIEWS Palmer Shea PA-C [address] [facility] [place] [address] Phone: tel: fax: [place] [address] Referral ID Status Reason Start Date Expiration Date V isits Requested Visits Authorized [id number] Closed Auto-Generate d Referral 04/12/2025 05/11/2026 1 1 [facility] Summary Purpose Family History Relationship Condition Age at Onset Recorded Date/T kary father Heart disease Unknown mother Malignant melanoma Unknown Unknown mother Malignant neoplasm Unknown Advance Directives Advance Directive Response Recorded Date/ Time Advance Directives No August 23, 2017 9:25am Chief Complaint and Reason for Visit Chief Complaint Admit Date OP SP RT SHOULDER WX TBH LAST SEEN IN 10 05July 08, 2025 11:08am M25.511 - Pain in right shoulder July 08, 2025 11:10am Reason for Visit Admit Date Acute pain of right shoulder June 11:08am Arthritis of right shoulder July 08, 2025 11:08am Right rotator cuff tear July 08 11:08am Chief Complaint Admit Date OP SP RT SHOULDER WX TBH LAST SEEN IN 10 05July 08, 2025 11:08am M25.511 - Pain in right shoulder July 08, 2025 11:10am RT SHOULDER CONSULT DR. GRIFFIN June 8:01am Reason for Visit Admit Date Acute pain of right shoulder June 11:08am Arthritis of right shoulder July 08, 2025 11:08am Right rotator cuff tear July 08 11:08am Acute pain of right shoulder June 8:01am Arthritis of right shoulder July 19, 2025 8:01am Right rotator cuff tear July 19 8:01am Additional Source Comments (unrecognized sect ion and content) No Status Records FoundNo Status Records FoundNo Status Records FoundNo Status Records FoundNo Status Records FoundNo Status Records Found INFORMATION SOURCE (unrecogn ized section and content) DATE CREATED AUTHOR 11/04/2020 [facility] DATE CREATED AUTHOR AUTHOR'S ORGANIZ ATION 01/08/2023 [facility] DATE CREATED AUTHOR AUTHOR'S ORGANIZ ATION 02/07/2023 [facility] DATE CREATED AUTHOR AUTHOR'S ORGANIZ ATION 12/07/2024 [facility] EPIC DATE CREATED AUTHOR AUTHOR'S ORGANIZ ATION 04/19/2025 [facility] DATE CREATED AUTHOR AUTHOR'S ORGANIZ ATION 07/10/2025 [facility] Reason for Visit (unrecogniz ed section and [...] or prosecute any alcohol or drug abuse patient.[facility] RehabilitationIn the event this information is protected by the Federal Confidentiality of Alcohol and Drug Abuse Patient Records regulations: The Federal rules restrict any use of the information to criminally investigate or prosecute any alcohol or drug abuse patient.[facility] RehabilitationIn the event this information is protected by the Federal Confidentiality of Alcohol and Drug Abuse Patient Records regulations: The Federal rules restrict any use of the information to criminally investigate or prosecute any alcohol or drug abuse patient.[facility] Care Teams (unrecognized sec tion and content) Lmft Relationship Specialty Start Date End Date Melody Mario MD PCP - General 09/25/07 Lmft Relationship Specialty Start Date End Date Melody Mario MD PCP - General 09/25/07 Lmft Relationship Specialty Start Date End Date Melody Mario MD PCP - General 09/25/07 Team Status: Active Member Role Status Dates Melody Mario MD Primary Care Provider Active Team Status: Inactive Member Role Status Emily Mario MD Primary Care Provider Active Start: July 08, 2025 End: July 08, 2025 Jun Griffin MD Attending Provider Active Star t: July 08, 2025 End: July 08, 2025 Team Status: Active Member Role Status Emily Griffin MD Attending Provider Active Star t: July 08, 2025 Melody Mario MD Primary Care Provider Active Start: July 08, 2025 Team Status: Inactive Member Role Status Emily Griffin MD Attending Provider Active Star t: July 08, 2025 End: July 08, 2025 Melody Mario MD Primary Care Provider Active Start: July 08, 2025 End: July 08, 2025 Team Status: Inactive Member Role Status Dates Melody Mario MD Primary Care Provider Active Start: July 19, 2025 End: July 19, 2025 Hugh Brown DO Attending Provider Active St art: July 19, 2025 End: July 19, 2025 Goals (unrecognized section and content) Goals may be documented in a n alternate sectionGoals may be documented in an alternate sectionGoals may be documented in an alternate section FOR RECORDS PERTAINING TO PATIENTS WHO ARE [...] BE BASED ON THE PRIMARY CLINICAL RECORDS. [employer] provides no warranty or guarantee of the accuracy or completeness of information in this document.
[2025-08-29] MEDS: FAMOTIDINE/PF 20 MG/2 ML VIAL IV (09:56)
[2025-08-29] MEDS: 0.9 % SODIUM CHLORIDE 1,000 ML 1000 ML IV (09:57)
[2025-08-29 09:58] LABS: Hematocrit 47.0 % (42.0-54.0); Hemoglobin 16.4 g/dL (14.0-18.0); Immature Granulocytes Abs Auto 0.06 10^3/uL (0.00-0.03); Immature Granulocytes Pct Auto 0.4 % (0.0-0.5); Lymphocytes Absolute Auto 4.1 10^3/uL (1.2-3.8); Mean Corpuscular HGB Conc 34.9 g/dL (29.9-35.2); Mean Corpuscular Hemoglobin 28.9 pg (25.9-34.0); Mean Corpuscular Volume 82.9 fL (80.0-94.0); Platelet Count 419 10^3/uL (150-450); Red Blood Count 5.67 10^6/uL (4.70-6.10); White Blood Count 14.6 10^3/uL (4.0-11.0)
[2025-08-29 10:14] LABS: Alanine Aminotransferase 40 U/L (16-63); Albumin Globulin Ratio 1.0; Albumin Level 4.5 g/dL (3.4-5.0); Alkaline Phosphatase 88 U/L (46-116); Anion Gap 25.7; Aspartate Amino Transferase 25 U/L (15-37); Blood Urea Nitrogen 15.0 mg/dL (7.0-18.0); Calcium 9.6 mg/dL (8.5-10.1); Carbon Dioxide 14.9 mmol/L (21.0-32.0); Chloride 102 mmol/L (98-107); Estimated GFR (African America >60 (>=60 mL/min/1.73m^2); Estimated GFR (Non-African Ame 55 (>=60 mL/min/1.73m^2); Globulin 4.5 g/dL; Glucose 147 mg/dL (74-106); Lipase 31.0 U/L (16.0-77.0); Potassium 3.6 mmol/L (3.5-5.1); Sodium 139 mmol/L (136-145); Total Protein 9.0 g/dL (6.4-8.2)
[2025-08-29 10:44] VITALS: BP 125/60; PULSE 60; O2SAT 98
--- NOTE | 2025-08-29 13:52 | ED.GENADUL1 ---
HPI HPI - General Adult General Chief complaint: Nausea/Vomiting/Diarrhea Stated complaint: NAUSEA/VOMITING Time Seen by Provider: 08/29/25 09:36 Source: patient Mode of arrival: walk-in Limitations: no limitations History of Present Illness HPI narrative: Patient is a 35-year-old male, history significant for cannabinoid hyperemesis syndrome with multiple ED visits, presenting to the emergency department for recurrent episode of the cyclical vomiting. Patient states has been nauseous and dry heaving for the last 2 days. He states this feels exactly like his prior episodes of cyclical vomiting. He states his last marijuana usage was 2 days ago. He denies any significant abdominal pain. No chest pain or shortness of breath. No fevers or chills. He does not use any antiemetics at home. Related Data Home Medications ?Medication ?Instructions ?Recorded ?Confirmed clonidine HCl 0.1 mg tablet 0.2 mg PO BID 11/17/23 06/25/25 hydroxyzine pamoate 25 mg capsule 25 mg PO QID PRN anxiety 11/17/23 06/25/25 lithium carbonate 300 mg capsule 300 mg PO BEDTIME 11/17/23 06/25/25 multivitamin (Daily Multi-Vitamin 1 tab PO DAILY 03/09/24 06/25/25 tablet) ibuprofen 800 mg tablet 800 mg PO Q8H PRN pain 07/16/24 06/25/25 propranolol 80 mg capsule,24 80 mg PO DAILY 07/17/24 06/25/25 hr,extended release (Inderal LA) dextroamphetamine-amphetamine 30 30 mg PO DAILY 06/25/25 06/25/25 mg tablet nabumetone 500 mg tablet 500 mg PO BID 06/25/25 06/25/25 sildenafil 100 mg tablet 100 mg PO DAILY 06/25/25 06/25/25 Previous Rx's ?Medication ?Instructions ?Recorded dicyclomine 10 mg capsule 10 mg PO QID PRN abdominal pain 07/23/24 #12 caps ondansetron 4 mg disintegrating 4 mg PO Q6H PRN nausea and 06/24/25 tablet vomiting #20 tabs diphenhydramine HCl 25 mg capsule 25 mg PO Q8H PRN motion sickness 08/29/25 (Benadryl) #30 caps prochlorperazine maleate 10 mg 10 mg PO BID PRN nausea and 08/29/25 tablet (Compazine) vomiting #14 tabs Allergies Allergy/AdvReac Type Severity Reaction Status Date / Time Penicillins Allergy Severe Unknown Verified 08/29/25 09:42 clarithromycin (From Biaxin) Allergy Unknown Verified 08/29/25 09:42 sulfamethoxazole (From Allergy unknown Verified 08/29/25 09:42 Bactrim) trimethoprim (From Bactrim) Allergy unknown Verified 08/29/25 09:42 Opioid HPI Opioid Management Most Recent Opioid Data: Last Pain Scale 9 06/25/25, 10:07 Last ORT Total Score 16 07/17/24, 08:28 Last ORT Risk Category High Risk 07/17/24, 08:28 Ur Phencyclidine Scrn, (NEGATIVE) Negative 07/21/24, 04:15 Review of Systems ROS Status of ROS 10 or more systems reviewed and unremarkable except as noted in history and below [facility] Medical History (Updated 08/29/25 @ 10:55 by Manpreet Leos DO) JCARLOS (acute kidney injury) ?N17.9 - Acute kidney failure, unspecified (ICD-10) Dehydration ?E86.0 - Dehydration (ICD-10) Bipolar disorder (manic depression) ?F31.9 - Bipolar disorder, unspecified (ICD-10) Acquired deformity of right foot ?M21.961 - Unspecified acquired deformity of right lower leg (ICD-10) Displaced fracture of navicular [scaphoid] of right foot, sequela ?S92.251S - Displaced fracture of navicular [scaphoid] of right foot, sequela (ICD-10) Sprain of tarsometatarsal ligament of right foot ?S93.621A - Sprain of tarsometatarsal ligament of right foot, initial encounter (ICD-10) Post-traumatic osteoarthritis, right ankle and foot ?M19.171 - Post-traumatic osteoarthritis, right ankle and foot (ICD-10) Hemangioma ?D18.00 - Hemangioma unspecified site (ICD-10) Ulnar nerve entrapment ?G56.20 - Lesion of ulnar nerve, unspecified upper limb (ICD-10) Bronchitis ?J40 - Bronchitis, not specified as acute or chronic (ICD-10) Foot pain ?M79.673 - Pain in unspecified foot (ICD-10) Esophagitis ?K20.90 - Esophagitis, unspecified without bleeding (ICD-10) Cyclical vomiting ?R11.15 - Cyclical vomiting syndrome unrelated to migraine (ICD-10) Sciatica ?M54.30 - Sciatica, unspecified side (ICD-10) Insomnia ?G47.00 - Insomnia, unspecified (ICD-10) PTSD (post-traumatic stress disorder) ?F43.10 - Post-traumatic stress disorder, unspecified (ICD-10) Panic attacks ?F41.0 - Panic disorder [episodic paroxysmal anxiety] (ICD-10) Depression ?F32.A - Depression, unspecified (ICD-10) Anxiety ?F41.9 - Anxiety disorder, unspecified (ICD-10) Electronic cigarette use ?Z78.9 - Other specified health status (ICD-10) COVID-19 ?U07.1 - COVID-19 (ICD-10) Sleep apnea ?G47.30 - Sleep apnea, unspecified (ICD-10) GERD (gastroesophageal reflux disease) ?K21.9 - Gastro-esophageal reflux disease without esophagitis (ICD-10) Prediabetes ?R73.03 - Prediabetes (ICD-10) Abdominal pain ?R10.9 - Unspecified abdominal pain (ICD-10) Nausea & vomiting ?R11.2 - Nausea with vomiting, unspecified (ICD-10) Surgical History H/O shoulder surgery ?Z98.890 - Other specified postprocedural states (ICD-10) H/O colonoscopy ?Z98.890 - Other specified postprocedural states (ICD-10) History of esophagogastroduodenoscopy (EGD) ?Z98.890 - Other specified postprocedural states (ICD-10) S/P cubital tunnel release ?Z98.890 - Other specified postprocedural states (ICD-10) History of surgical removal of skin lesion ?Z98.890 - Other specified postprocedural states (ICD-10) ?Z87.2 - Personal history of diseases of the skin and subcutaneous tissue (ICD-10) Family History Other Family history of diabetes mellitus Family history of heart disease Family history of hypertension Family history of myocardial infarction Social History Within the past year, how often did you have a drink containing alcohol: never Score interpretation: A score less than 4 is consistent with normal alcohol consumption. Smoking status: Current some day smoker Do you use any of these nicotine containing products: vaping products Non-prescribed substance use: cannabis (any form) Previous occupational history: [employer] Highest level of school completed/degree received: high school graduate Are you now , , , , never or living with a partner: In a typical week, how many times do you talk on the telephone with family, friends, or neighbors: 3 or more times per week How often do you get together with friends or relatives: 3 or more times per week How often do you attend yarsani or faith services: never Do you belong to any clubs or organizations such as yarsani groups unions, fraternal or athletic groups, or school groups: no Total score: 2 Score interpretation: A score of greater than or equal to 2 indicates the lowest level of social isolation. Little interest or pleasure in doing things: not at all Feeling down, depressed, or hopeless: not at all Feel stressed/tense/nervous/anxious/difficulty sleeping: to some extent Exam Narrative Exam Narrative: CONSTITUTIONAL: Patient appears to be in acute distress, dry heaving into a basin SKIN: Was warm and diaphoretic. EYES: Sclerae white. EARS, NOSE, THROAT: Moist oral mucosa. RESPIRATORY: Clear to auscultation bilaterally, no wheezes, crackles, or stridor, no use of accessory muscles CARDIOVASCULAR: Normal rate and regular rhythm. There is no S3, S4, murmur, rub. GASTROINTESTINAL: Abdomen is soft, nontender, nondistended. No rebound tenderness or guarding. MUSCULOSKELETAL: No peripheral edema. NEUROLOGIC: Patient is awake and alert. Facies were symmetrical. Constitutional Vital Signs, click to edit/add: Last Vital Signs Pulse 60 08/29/25 10:44 Resp 20 08/29/25 10:44 BP 125/60 08/29/25 10:44 Pulse Ox 98 08/29/25 10:44 O2 Del Method Room Air 08/29/25 09:42 Course Vital Signs Vital signs: Vital Signs Pulse Rate 78 08/29/25 09:42 Respiratory Rate 16 08/29/25 09:42 Blood Pressure 157/99 H 10/09/25 09:42 Pulse Oximetry 95 08/29/25 09:42 Oxygen Delivery Method Room Air 08/29/25 09:42 Pulse Rate 60 08/29/25 10:44 Respiratory Rate 20 08/29/25 10:44 Blood Pressure 125/60 08/29/25 10:44 Pulse Oximetry 98 08/29/25 10:44 Oxygen Delivery Method Room Air 08/29/25 09:42 Medical Decision Making [facility] Narrative Medical decision making narrative: Patient is a 35-year-old male, history significant for cannabinoid hyperemesis syndrome with multiple ED visits for the same complaint, presenting to the emergency department for recurrent episode of CHS. Vital signs arrival are within normal limits. He is afebrile and hemodynamically stable. His abdomen is soft and nontender. He appears quite uncomfortable and dry heaving into a basin. My clinical impression is that the patient is having recurrent episode of cannabinoid hyperemesis syndrome, his last marijuana usage was 2 days ago. Patient's exam is not consistent with surgical etiologies of abdominal pain such as appendicitis, cholecystitis, or perforated viscus. IVs established and laboratory studies were obtained. He was treated symptomatic with IV droperidol, IV bolus normal saline, and IV famotidine. Laboratory studies were unremarkable. No significant electrolyte or metabolic derangement. No evidence of acute kidney injury. No significant anemia, leukocytosis, or thrombocytopenia. No transaminitis or hyperbilirubinemia. Lipase nonelevated. On reevaluation, patient states he feels significantly improved and feels comfortable being discharged home. I do believe the patient is stable for discharge. Patient's presentation is most likely consistent with CHS. They were instructed to follow up with their PCP for further care and to avoid using marijuana. Return precautions were given including any new or worsening symptoms. They were given a prescription for Compazine and Benadryl. Patient understands and agrees to the plan. FINAL IMPRESSION: #Acute on chronic hyperemesis syndrome, cyclical vomiting DISPOSITION: Discharged home CONDITION: Good Medical Records Medical records reviewed: Yes I reviewed the patient's medical records Lab Data Lab results reviewed: Yes I reviewed the patient's lab results Labs: Lab Results 08/29/25 Range/Units 09:48 WBC 14.6 H (4.0-11.0) 10^3/uL RBC 5.67 (4.70-6.10) 10^6/uL Hgb 16.4 (14.0-18.0) g/dL Hct 47.0 (42.0-54.0) % MCV 82.9 (80.0-94.0) fL MCH 28.9 (25.9-34.0) pg MCHC 34.9 (29.9-35.2) g/dL RDW 14.1 (11.0-15.0) % Plt Count 419 (150-450) 10^3/uL MPV 9.9 (9.5-13.5) fL Neut % (Auto) 63.6 (43.0-75.0) % Lymph % (Auto) 28.3 (20.5-60.0) % [place] % (Auto) 5.9 (1.7-12.0) % Eos % (Auto) 1.3 (0.9-7.0) % Baso % (Auto) 0.5 (0.2-2.0) % Neut # (Auto) 9.3 H (1.4-6.5) 10^3/uL Lymph # (Auto) 4.1 H (1.2-3.8) 10^3/uL [place] # (Auto) 0.9 H (0.3-0.8) 10^3/uL Eos # (Auto) 0.2 (0.0-0.7) 10^3/uL Baso # (Auto) 0.1 (0.0-0.1) 10^3/uL Abs Immat Gran (auto) 0.06 H (0.00-0.03) 10^3/uL Imm/Tot Granulo (auto) 0.4 (0.0-0.5) % Sodium 139 (136-145) mmol/L Potassium 3.6 (3.5-5.1) mmol/L Chloride 102 (98-107) mmol/L Carbon Dioxide 14.9 L (21.0-32.0) mmol/L Anion Gap 25.7 BUN 15.0 (7.0-18.0) mg/dL Creatinine 1.46 H (0.70-1.30) mg/dL Est GFR ( Amer) >60 (>=60 mL/min/1.73m^2) Est GFR (Non-Af Amer) 55 L (>=60 mL/min/1.73m^2) BUN/Creatinine Ratio 10.3 Glucose 147 H (74-106) mg/dL Calcium 9.6 (8.5-10.1) mg/dL Total Bilirubin 0.9 (0.2-1.0) mg/dL AST 25 (15-37) U/L ALT 40 (16-63) U/L Alkaline Phosphatase 88 (46-116) U/L Total Protein 9.0 H (6.4-8.2) g/dL Albumin 4.5 (3.4-5.0) g/dL Globulin 4.5 g/dL Albumin/Globulin Ratio 1.0 Lipase 31.0 (16.0-77.0) U/L Discharge Plan Discharge Chief Complaint: Nausea/Vomiting/Diarrhea Clinical Impression: Cannabinoid hyperemesis syndrome Patient Disposition: Home, Self-Care Time of Disposition Decision: 10:55 Condition: Good Mode of Transportation: Private Vehicle Prescriptions / Home Meds: New prochlorperazine maleate [Compazine] 10 mg tablet 10 mg PO BID PRN (Reason: nausea and vomiting) Qty: 14 0RF diphenhydramine HCl [Benadryl] 25 mg capsule 25 mg PO Q8H PRN (Reason: motion sickness) Qty: 30 0RF No Action clonidine HCl 0.1 mg tablet 0.2 mg PO BID hydroxyzine pamoate 25 mg capsule 25 mg PO QID PRN (Reason: anxiety) lithium carbonate 300 mg capsule 300 mg PO BEDTIME multivitamin [Daily Multi-Vitamin] Tablet 1 tab PO DAILY propranolol [Inderal LA] 80 mg capsule,extended release 24 hr 80 mg PO DAILY dicyclomine 10 mg capsule 10 mg PO QID PRN (Reason: abdominal pain) Qty: 12 0RF ondansetron 4 mg tablet,disintegrating 4 mg PO Q6H PRN (Reason: nausea and vomiting) Qty: 20 0RF ibuprofen 800 mg tablet 800 mg PO Q8H PRN (Reason: pain) sildenafil 100 mg tablet 100 mg PO DAILY nabumetone 500 mg tablet 500 mg PO BID dextroamphetamine-amphetamine 30 mg tablet 30 mg PO DAILY Print Language: Palestinian Instructions: Acute Nausea and Vomiting (ED) Referrals: Janes Mario MD [Primary Care Provider, Family Practice] - 1 week Discharge Date/Time: 08/29/25 11:23
== END 2025-08-29 11:23 | disposition home or self-care (01) ==
PROVIDERS: Emergency Provider Student in an Organized Health Care Education/Training Program; PCP Family Medicine
DX: R11.2 Nausea with vomiting, unspecified (principal); F12.90 Cannabis use, unspecified, uncomplicated
CPT/HCPCS: 36415; 80053; 81001; 83690; 85025; 96361; 96374; 96375; 99284; J3490